=== PATIENT | female | born 1975 | race Caucasian/White ===

== ENCOUNTER 2023-02-10 14:05 | Observation (INO) | payer OTHER, SELFPAY ==
[2023-02-10] VITALS (9 sets, daily range): BP systolic 130–145; BP diastolic 83–89; PULSE 72–111; RESP 16–20; TEMP 36.7–36.8; O2SAT 76–98; BMI 40.9
--- NOTE | 2023-02-10 14:34 | US_ITS ---
The [address] [address] Patient Name: PRADIP MORFIN MRN: [id number] date: 1975 Sex: F Assigned Patient Location: MS Current Patient Location: Accession/Order Number: [id number] Exam Date: 02/10/2023 15:10 Report Date: 02/10/2023 16:22 At the request of: MARIBEL PINEDA Procedure: US right upper quadrant EXAM: US right upper quadrant; [id number] HISTORY: Abd Pain =- Liver, gallbladder, pancreas TECHNIQUE: Real-time sonography of the right upper quadrant was performed. Color and spectral Doppler were used to assess select abdominal vasculature. COMPARISON: Chest CT 01/20/2013. FINDINGS: PANCREAS: The pancreas is obscured by bowel gas. GALLBLADDER: Resected. BILIARY DUCTS: Extrahepatic bile duct at the malik hepatis measures 3 mm. No intrahepatic or extrahepatic ductal dilatation. RIGHT KIDNEY: Kidney measures 11.2 x 4.2 x 4.4 cm. The kidney is within normal limits for size and echogenicity. No hydronephrosis, solid lesion, or stones demonstrated. Doppler signal is within normal limits. LIVER: Within normal limits for size and echogenicity. No focal lesion demonstrated. VASCULATURE: -Antegrade flow in the main portal vein. MISCELLANEOUS: Fluid-filled bowel in the midabdomen. US/US right upper quadrant IMPRESSION: 1. The gallbladder has been resected. 2. The liver and right kidney are within normal limits. Electronically authenticated by: MARY MASON Date: 02/10/2023 16:22
--- NOTE | 2023-02-10 14:35 | XR_ITS ---
The [address] [address] Patient Name: PRADIP MORFIN MRN: [id number] date: 1975 Sex: F Assigned Patient Location: Current Patient Location: Accession/Order Number: [id number] Exam Date: 02/10/2023 15:00 Report Date: 02/10/2023 15:37 At the request of: MARIBEL PINEDA Procedure: XR acute abdomen series EXAMINATION: XR acute abdomen series 02/10/2023 12:36 PM PST HISTORY: Abd Pain COMPARISONS: Chest x-ray 09/16/2020 FINDINGS: Chest findings: Lines/tubes/other: None. Heart and mediastinum: Stable. Bones: No acute osseous abnormality. Lungs: The lungs are clear. There is no evidence of pneumonia or pulmonary edema. Pleura: There is no significant pleural effusion or pneumothorax. Other: None. Abdominal findings: Nonobstructive bowel gas pattern. No pneumoperitoneum, pneumatosis, or portal venous gas. Scattered surgical clips are present. Anastomotic staple line is present in the left upper quadrant. Stool burden is average. XR/XR acute abdomen series IMPRESSION: No acute abnormality demonstrated in the chest or abdomen. Electronically authenticated by: MARY MASON Date: 02/10/2023 15:37
[2023-02-10 15:04] LABS: Basophils Percent Auto 0.5 % (0.2-2.0); Eosinophils Absolute Auto 0.1 10^3/uL (0.0-0.7); Eosinophils Percent Auto 1.6 % (0.9-7.0); Hematocrit 44.4 % (36.0-48.0); Hemoglobin 13.8 g/dL (12.0-16.0); Immature Granulocytes Abs Auto 0.05 10^3/uL (0.00-0.03); Immature Granulocytes Pct Auto 0.8 % (0.0-0.5); Lymphocytes Absolute Auto 1.6 10^3/uL (1.2-3.8); Mean Corpuscular HGB Conc 31.1 g/dL (29.9-35.2); Mean Corpuscular Hemoglobin 28.1 pg (26.7-34.0); Mean Corpuscular Volume 90.4 fL (81.0-99.0); Mean Platelet Volume 9.7 fL (9.5-13.5); Monocytes Absolute Auto 0.6 10^3/uL (0.3-0.8); Monocytes Percent Auto 8.5 % (1.7-12.0); Neutrophils Absolute Auto 4.1 10^3/uL (1.4-6.5); Neutrophils Percent Auto 63.6 % (43.0-75.0); Platelet Count 245 10^3/uL (150-450); Red Blood Count 4.91 10^6/uL (4.20-5.40); Red Cell Distribution Width 14.6 % (11.0-15.0); White Blood Count 6.4 10^3/uL (4.0-11.0)
[2023-02-10 15:09] LABS: Bilirubin Urine NEGATIVE (NEGATIVE); Blood Urine TRACE-I (NEGATIVE); Color Urine YELLOW (YELLOW); Glucose Urine UA NEGATIVE (NEGATIVE); Ketones Urine NEGATIVE (NEGATIVE); Leukocyte Esterase Urine TRACE (NEGATIVE); Nitrite Urine NEGATIVE (NEGATIVE); Protein Urine TRACE mg/dL (NEG/TRACE); pH Urine 6.5 (5.0-9.0)
[2023-02-10 15:12] LABS: Ammonia 22 umol/L (11-32)
[2023-02-10 15:13] LABS: Clarity Urine SLIGHTLY CLOUDY (CLEAR)
[2023-02-10 15:17] LABS: Alanine Aminotransferase 39 U/L (14-59); Albumin Level 3.8 g/dL (3.4-5.0); Alkaline Phosphatase 139 U/L (46-116); Amylase 40 U/L (25-115); Anion Gap 13.9; Aspartate Amino Transferase 29 U/L (15-37); BUN Creatinine Ratio 8.8; Bilirubin Total 0.9 mg/dL (0.2-1.0); Calcium 9.4 mg/dL (8.5-10.1); Carbon Dioxide 25.8 mmol/L (21.0-32.0); Chloride 100 mmol/L (98-107); Estimated GFR (African America 55 (>=60); Estimated GFR (Non-African Ame 46 (>=60); Globulin 3.9 g/dL; Glucose 110 mg/dL (74-106); Potassium 3.7 mmol/L (3.5-5.1); Sodium 136 mmol/L (136-145); Total Protein 7.7 g/dL (6.4-8.2)
[2023-02-10 15:18] LABS: Bacteria Urine LARGE #/HPF (NONE SEEN); Mucus Urine NONE SEEN (NONE SEEN); Squamous Epithelial Cell Urine MANY #/LPF (NONE/RARE)
[2023-02-10 15:19] LABS: Lactate/Lactic Acid 0.9 mmol/L (0.4-2.0)
[2023-02-10 15:59] LABS: Magnesium 1.9 mg/dL (1.8-2.4)
[2023-02-10] MEDS: THIAMINE MONONITRATE (VIT B1) 100 MG TABLET PO (16:19)
[2023-02-10] MEDS: MULTIVITAMIN TABLET 1 TAB PO (16:19)
[2023-02-10] MEDS: PANTOPRAZOLE SODIUM 40 MG VIAL IV (16:19)
[2023-02-10] MEDS: ARIPIPRAZOLE 5 MG TABLET PO (16:20)
[2023-02-10] MEDS: CLORDIAZEPOXIDE HCl 25 MG CAPSULE PO ×3 (16:20→23:18)
[2023-02-10] MEDS: ESCITALOPRAM 10 MG TABLET 20 MG PO (16:21)
[2023-02-10] MEDS: 0.9 % SODIUM CHLORIDE 1,000 ML 1000 ML IV ×2 (16:31→17:30)
[2023-02-10] MEDS: HALOPERIDOL LACTATE 5 MG/ML VIAL 2 MG IV (17:33)
[2023-02-10] MEDS: LACTATED RINGER'S SOLUTION 1,000 ML 100 ML IV (18:34)
[2023-02-10] MEDS: ROPINIROLE HCL 1 MG TABLET PO (19:54)
[2023-02-10] MEDS: CLONIDINE HCL 0.1 MG TABLET PO (21:36)
[2023-02-10] MEDS: PHENobarbitaL 32.4 MG TABLET PO (21:37)
[2023-02-10] MEDS: TRAZODONE HCL 50 MG TABLET 100 MG PO (21:37)
[2023-02-10] MEDS: CEFTRIAXONE 1,000 MG in 0.9 % SODIUM CHLORIDE 50 ML 100 MG IV (23:18)
[2023-02-11] VITALS (15 sets, daily range): BP systolic 104–117; BP diastolic 68–77; PULSE 65–100; RESP 18–20; TEMP 36.4–36.8; O2SAT 92–98; BMI 40.8
[2023-02-11] MEDS: CLORDIAZEPOXIDE HCl 25 MG CAPSULE PO ×2 (02:50→06:27)
[2023-02-11] MEDS: LACTATED RINGER'S SOLUTION 1,000 ML 100 ML IV ×2 (02:50→13:56)
[2023-02-11 05:59] LABS: Basophils Absolute Auto 0.1 10^3/uL (0.0-0.1); Basophils Percent Auto 0.7 % (0.2-2.0); Eosinophils Absolute Auto 0.1 10^3/uL (0.0-0.7); Eosinophils Percent Auto 1.9 % (0.9-7.0); Hematocrit 38.3 % (36.0-48.0); Immature Granulocytes Abs Auto 0.05 10^3/uL (0.00-0.03); Immature Granulocytes Pct Auto 0.7 % (0.0-0.5); Lymphocytes Absolute Auto 2.9 10^3/uL (1.2-3.8); Lymphocytes Percent Auto 41.1 % (20.5-60.0); Mean Corpuscular HGB Conc 31.3 g/dL (29.9-35.2); Mean Corpuscular Hemoglobin 28.6 pg (26.7-34.0); Mean Corpuscular Volume 91.4 fL (81.0-99.0); Mean Platelet Volume 9.9 fL (9.5-13.5); Monocytes Absolute Auto 0.5 10^3/uL (0.3-0.8); Monocytes Percent Auto 7.3 % (1.7-12.0); Neutrophils Absolute Auto 3.4 10^3/uL (1.4-6.5); Neutrophils Percent Auto 48.3 % (43.0-75.0); Platelet Count 215 10^3/uL (150-450); Red Blood Count 4.19 10^6/uL (4.20-5.40); Red Cell Distribution Width 14.6 % (11.0-15.0); White Blood Count 6.9 10^3/uL (4.0-11.0)
[2023-02-11 06:22] LABS: Alanine Aminotransferase 31 U/L (14-59); Albumin Globulin Ratio 0.9; Alkaline Phosphatase 108 U/L (46-116); Anion Gap 10.1; Aspartate Amino Transferase 19 U/L (15-37); BUN Creatinine Ratio 10.1; Bilirubin Total 0.5 mg/dL (0.2-1.0); Calcium 8.6 mg/dL (8.5-10.1); Carbon Dioxide 26.8 mmol/L (21.0-32.0); Chloride 107 mmol/L (98-107); Estimated GFR (African America 58 (>=60); Estimated GFR (Non-African Ame 48 (>=60); Globulin 3.2 g/dL; Glucose 121 mg/dL (74-106); Potassium 3.9 mmol/L (3.5-5.1); Sodium 140 mmol/L (136-145); Total Protein 6.2 g/dL (6.4-8.2)
[2023-02-11] MEDS: PHENobarbitaL 32.4 MG TABLET PO ×3 (06:27→21:44)
[2023-02-11] MEDS: ACETAMINOPHEN 500 MG TABLET 1000 MG PO (07:23)
--- NOTE | 2023-02-11 07:51 | P.PN_ITS ---
Progress Note: Subjective Subjective Interval history: Abdominal pain and nausea vomiting somewhat better. No further emesis but still has significant nausea. Admitted from the office for workup and treatment of gastroenteritis versus alcohol withdrawal syndrome. Only had 1 panic attack with the Haldol to help to resolve overall appears much better today. Not with great urine output yet. Exam Constitutional Vital Signs, click to edit/add: Last Vital Signs Temp 97.6 F 02/11/23 06:00 Pulse 67 02/11/23 06:00 Resp 20 02/11/23 06:00 BP 117/77 02/11/23 06:00 Pulse Ox 93 L 02/11/23 06:00 O2 Del Method Room Air 02/11/23 06:00 Documenting provider has reviewed patient's vital signs: yes Common normals: no apparent distress and oriented x3 Chest Common normals: inspection of chest normal Respiratory Common normals: normal respiratory effort and no retractions Cardio Common normals: regular rate and regular rhythm Common normals: external appearance normal and appearance of the vagina normal Neuro Common normals: oriented x3, CN's II-XII intact bilaterally and moves all extremities Psych Common normals: mental status grossly normal (still with sig anxiety at time) Progress Note: Objective Labs Labs: Short CBC 02/10/23 02/11/23 Range/Units 14:53 05:20 WBC 6.4 6.9 (4.0-11.0) 10^3/uL Hgb 13.8 12.0 (12.0-16.0) g/dL Hct 44.4 38.3 (36.0-48.0) % Plt Count 245 215 (150-450) 10^3/uL BMP 02/10/23 02/11/23 14:53 05:20 Sodium 136 140 Potassium 3.7 3.9 Chloride 100 107 Carbon Dioxide 25.8 26.8 BUN 11.0 12.0 Creatinine 1.25 H 1.19 H Glucose 110 H 121 H Calcium 9.4 8.6 Liver Function 02/10/23 02/11/23 Range/Units 14:53 05:20 Total Bilirubin 0.9 0.5 (0.2-1.0) mg/dL AST 29 19 (15-37) U/L ALT 39 31 (14-59) U/L Alkaline Phosphatase 139 H 108 (46-116) U/L Albumin 3.8 3.0 L (3.4-5.0) g/dL Urine 02/10/23 Range/Units 14:40 Urine Color Yellow (YELLOW) Urine Clarity Slightly cloudy A (CLEAR) Urine pH 6.5 (5.0-9.0) Ur Specific [place] 1.020 (1.005-1.025) Urine Protein Trace (NEG/TRACE) mg/dL Urine Glucose (UA) Negative (NEGATIVE) mg/dL Progress Note: A&P Assessment and Plan (1) Dehydration: Plan Sinus tachycardia, borderline hypertension, acute kidney injury with creatinine 1.5 times normal secondary to hyperemesis secondary to gastroenteritis versus alcohol withdrawal syndrome-continue with CIWA scale, change Librium to as needed, keep with Haldol as needed IV. Male she is Haldol for better sleep. No trazodone available. No Phenergan available for nausea vomiting, will go with Zofran Acute kidney injury secondary to above with creatinine 1.5 times normal-keep with IV fluids today. Does have better urine output but still fairly dark. Anxiety disorder with panic attack-so far improved with increased dose of the Abilify. Haldol helping should be good sign Abilify may be a good long-term answer. Persistent diarrhea-awaiting stool testing UA positive with blood cell count-added IV antibiotics last night. Needs 1 more hospital stay. Will maintain as observation currently.
[2023-02-11] MEDS: 0.9 % SODIUM CHLORIDE 500 ML 1000 ML IV (08:51)
[2023-02-11] MEDS: THIAMINE MONONITRATE (VIT B1) 100 MG TABLET PO (08:52)
[2023-02-11] MEDS: ARIPIPRAZOLE 5 MG TABLET PO (08:52)
[2023-02-11] MEDS: ESCITALOPRAM 10 MG TABLET 20 MG PO (08:52)
[2023-02-11] MEDS: MULTIVITAMIN TABLET 1 TAB PO (08:52)
[2023-02-11] MEDS: CLONIDINE HCL 0.1 MG TABLET PO ×2 (08:52→21:51)
[2023-02-11] MEDS: HALOPERIDOL LACTATE 5 MG/ML VIAL 2 MG IV ×2 (09:27→18:49)
[2023-02-11 12:11] LABS: Adenovirus F 40/41 NOT DETECTED (NOT DETECTE); Astrovirus NOT DETECTED (NOT DETECTE); Campylobacter NOT DETECTED (NOT DETECTE); Cryptosporidium NOT DETECTED (NOT DETECTE); Cyclospora cayetanensis NOT DETECTED (NOT DETECTE); Entamoeba histolytica NOT DETECTED (NOT DETECTE); Enteroaggregative E.coli NOT DETECTED (NOT DETECTE); Enteropathogenic E.coli NOT DETECTED (NOT DETECTE); Enterotoxigenic E. coli NOT DETECTED (NOT DETECTE); Giardia lamblia NOT DETECTED (NOT DETECTE); Norovirus GI/GII NOT DETECTED (NOT DETECTE); Plesiomonas shigelloides NOT DETECTED (NOT DETECTE); Rotavirus A NOT DETECTED (NOT DETECTE); Salmonella NOT DETECTED (NOT DETECTE); Sapovirus NOT DETECTED (NOT DETECTE); Shiga-like toxin-producing E.C NOT DETECTED (NOT DETECTE); Shigella/Enteroinvasive E.coli NOT DETECTED (NOT DETECTE); Vibrio NOT DETECTED (NOT DETECTE); Vibrio cholerae NOT DETECTED (NOT DETECTE); Yersinia enterocolitica NOT DETECTED (NOT DETECTE)
--- NOTE | 2023-02-11 13:17 | DIETREC ---
Recommend prostat @30 ml po daily R/T low serum albumin @ 3.0
[2023-02-11] MEDS: PANTOPRAZOLE SODIUM 40 MG VIAL IV (14:47)
--- NOTE | 2023-02-11 16:05 | CM.NOTE ---
Discussed with pt about alcohol rehab or outpatient counseling services. Pt denies need for inpatient treatment. Pt is current with Darek for counseling through [facility] and also is seeing a counselor from [facility] in [place] (Shania). Pt has appointment scheduled for Wednesday in [place] for counseling. Pt also seeing a doctor at [facility] r/t insomnia. Pt denies any need for referrals at this time.
[2023-02-11] MEDS: ROPINIROLE HCL 1 MG TABLET PO (21:44)
[2023-02-11] MEDS: TRAZODONE HCL 50 MG TABLET 100 MG PO (21:44)
[2023-02-11] MEDS: CEFTRIAXONE 1,000 MG in 0.9 % SODIUM CHLORIDE 50 ML 100 MG IV (21:44)
[2023-02-12] VITALS (10 sets, daily range): BP systolic 110; BP diastolic 77; PULSE 65–83; RESP 18; TEMP 36.4; O2SAT 93–96
[2023-02-12] MEDS: LACTATED RINGER'S SOLUTION 1,000 ML 100 ML IV (00:17)
[2023-02-12 05:06] LABS: Basophils Absolute Auto 0.1 10^3/uL (0.0-0.1); Basophils Percent Auto 0.8 % (0.2-2.0); Eosinophils Absolute Auto 0.2 10^3/uL (0.0-0.7); Eosinophils Percent Auto 2.7 % (0.9-7.0); Hematocrit 38.6 % (36.0-48.0); Hemoglobin 12.1 g/dL (12.0-16.0); Immature Granulocytes Abs Auto 0.07 10^3/uL (0.00-0.03); Immature Granulocytes Pct Auto 0.9 % (0.0-0.5); Lymphocytes Absolute Auto 2.9 10^3/uL (1.2-3.8); Lymphocytes Percent Auto 37.1 % (20.5-60.0); Mean Corpuscular HGB Conc 31.3 g/dL (29.9-35.2); Mean Corpuscular Hemoglobin 28.5 pg (26.7-34.0); Monocytes Absolute Auto 0.6 10^3/uL (0.3-0.8); Monocytes Percent Auto 7.6 % (1.7-12.0); Neutrophils Percent Auto 50.9 % (43.0-75.0); Platelet Count 217 10^3/uL (150-450); Red Blood Count 4.24 10^6/uL (4.20-5.40); Red Cell Distribution Width 14.6 % (11.0-15.0); White Blood Count 7.8 10^3/uL (4.0-11.0)
[2023-02-12] MEDS: PHENobarbitaL 32.4 MG TABLET PO (05:14)
[2023-02-12 05:31] LABS: Alanine Aminotransferase 27 U/L (14-59); Albumin Globulin Ratio 0.9; Albumin Level 2.9 g/dL (3.4-5.0); Alkaline Phosphatase 105 U/L (46-116); Anion Gap 7.2; Aspartate Amino Transferase 15 U/L (15-37); Bilirubin Total 0.4 mg/dL (0.2-1.0); Calcium 8.4 mg/dL (8.5-10.1); Carbon Dioxide 26.4 mmol/L (21.0-32.0); Chloride 106 mmol/L (98-107); Estimated GFR (African America >60 (>=60); Estimated GFR (Non-African Ame 59 (>=60); Globulin 3.1 g/dL; Glucose 99 mg/dL (74-106); Potassium 3.6 mmol/L (3.5-5.1); Sodium 136 mmol/L (136-145)
--- NOTE | 2023-02-12 08:22 | P.DS_ITS ---
DS: Providers Provider Date of admission: 02/10/23 14:05 Primary care physician: Farhat Cabezas MD DS: Diagnosis Discharge Diagnosis (1) Dehydration: DS: Summary Hospital Course Hospital Course: patient admitted with dehydration secondary to possible gastroenteritis with diarrhea but also possible alcohol withdrawal syndrome. Patient with IV fluids, CIWA scale was followed, medications were given as needed as well as [id number] initially. There adjust as needed yesterday which did not need. This point she does feel improved. No further nausea vomiting. Diarrhea is back to her baseline. At this point she tolerates breakfast and lunch with no further withdrawal symptoms and no further gastroenteritis symptoms she will be discharged home in improving condition. Medications see list. Follow-up with me in the office as needed. Time Spent with Patient Time attestation: Total time spent providing and/or coordinating discharge services: Exam Constitutional Vital Signs, click to edit/add: Last Vital Signs Temp 97.5 F L 02/12/23 05:31 Pulse 66 02/12/23 07:57 Resp 18 02/12/23 05:31 BP 110/77 02/12/23 05:31 Pulse Ox 96 02/12/23 05:31 O2 Del Method Room Air 02/12/23 05:31 Documenting provider has reviewed patient's vital signs: yes Common normals: no apparent distress and oriented x3 Chest Common normals: inspection of chest normal Respiratory Common normals: normal respiratory effort and no retractions Cardio Common normals: regular rate and regular rhythm Common normals: external appearance normal and appearance of the vagina normal Neuro Common normals: oriented x3, CN's II-XII intact bilaterally and moves all extremities Psych Common normals: mental status grossly normal (still with sig anxiety at time) DS: Data Data Completed and Pending Labs on day of discharge: Labs from last 24 hours 02/12/23 02/11/23 04:34 12:00 WBC 7.8 RBC 4.24 Hgb 12.1 Hct 38.6 MCV 91.0 MCH 28.5 MCHC 31.3 RDW 14.6 Plt Count 217 MPV 10.0 Neut % (Auto) 50.9 Lymph % (Auto) 37.1 [place] % (Auto) 7.6 Eos % (Auto) 2.7 Baso % (Auto) 0.8 Neut # (Auto) 4.0 Lymph # (Auto) 2.9 [place] # (Auto) 0.6 Eos # (Auto) 0.2 Baso # (Auto) 0.1 Abs Immat Gran (auto) 0.07 H Imm/Tot Granulo (auto) 0.9 H Sodium 136 Potassium 3.6 Chloride 106 Carbon Dioxide 26.4 Anion Gap 7.2 BUN 11.0 Creatinine 1.00 Est GFR ( Amer) >60 Est GFR (Non-Af Amer) 59 L BUN/Creatinine Ratio 11.0 Glucose 99 Calcium 8.4 L Total Bilirubin 0.4 AST 15 ALT 27 Alkaline Phosphatase 105 Total Protein 6.0 L Albumin 2.9 L Globulin 3.1 Albumin/Globulin Ratio 0.9 Stl C. cayetanensis PCR Not detected Stool Rotavirus (PCR) Not detected Stool Adenovirus (PCR) Not detected Stool Astrovirus (PCR) Not detected Stool Campylobacter PCR Not detected Stool Cryptosporidium PCR Not detected St Sh/Enteroin Ecoli PCR Not detected Stl Enterotoxigenic E PCR Not detected Stool EPEC (PCR) Not detected Stl E. histolytica PCR Not detected Stool Giardia Lamblia PCR Not detected Stl P. shigelloides PCR Not detected Stool Salmonella PCR Not detected Stool Sapovirus (PCR) Not detected Stl Shiga-like Tx [address] Y.enterocolitica PCR Not detected Stl Vibrio cholerae PCR Not detected Stl Enteroaggr Ecoli PCR Not detected Stl Norovirus GI/GII PCR Not detected C. difficile Toxin A&B Not detected Vibrio Culture Not detected Discharge Plan Discharge Disposition: Home, Self-Care Discharge Medications: New aripiprazole [Abilify] 5 mg tablet 5 mg PO DAILY Qty: 30 11RF trazodone 150 mg tablet 150 mg PO .qhs Qty: 30 11RF clonidine HCl 0.1 mg tablet 0.1 mg PO BID Qty: 30 11RF promethazine 25 mg tablet 25 mg PO Q6H PRN (Reason: nausea and vomiting) Qty: 30 11RF Continued Trulicity 1.5 mg/0.5 mL pen injector 1.5 mg SUBCUT QWEEK Rx Instructions: verify which day of the week patient uses (DME) FreeStyle Lite Strips Strip MISCELLANEOUS (DME) blood-glucose meter [FreeStyle [place] Lite] Kit MISCELLANEOUS zaleplon 5 mg capsule 5 mg PO .qhs Rx Instructions: filled for #7 for 7 days on 02/05/23 hydroxyzine pamoate 100 mg capsule 100 mg PO BID PRN (Reason: anxiety ) ropinirole 1 mg tablet 1 mg PO .qhs Rx Instructions: 1 to 3 hours before bedtime pantoprazole 40 mg tablet,delayed release (DR/EC) 40 mg PO Q24H escitalopram oxalate 20 mg tablet 20 mg PO QAM levothyroxine 75 mcg tablet 75 mcg PO QAM ergocalciferol (vitamin D2) 1,250 mcg (50,000 unit) capsule 1,250 mcg PO .COMPLEX Rx Instructions: 1,250 mcg orally THREE TIMES PER WEEK; Discontinued buspirone 15 mg tablet 15 mg PO BID Rx Instructions: upon awakening and at 5-6 pm trazodone 100 mg tablet 100 mg PO .QHS PRN (Reason: sleep) Rx Instructions: ONE-HALF TO ONE TABLET BY MOUT ONE HOUR PRIOR TO BEDTIME NEEDED aripiprazole 2 mg tablet 2 mg PO .qhs Forms: Portal Instructions
[2023-02-12] MEDS: CLONIDINE HCL 0.1 MG TABLET PO (09:22)
[2023-02-12] MEDS: MULTIVITAMIN TABLET 1 TAB PO (09:22)
[2023-02-12] MEDS: ARIPIPRAZOLE 5 MG TABLET PO (09:22)
[2023-02-12] MEDS: ESCITALOPRAM 10 MG TABLET 20 MG PO (09:22)
[2023-02-12] MEDS: THIAMINE MONONITRATE (VIT B1) 100 MG TABLET PO (09:22)
--- NOTE | 2023-02-15 16:18 | CM.DCFOLLOWU ---
Person spoke with: patient How are you feeling? well How is your pain? no pain Did you understand your discharge instructions? yes Do you have any questions about your discharge instructions? no Were you given any prescriptions at discharge? yes Were you able to get your prescriptions filled? yes Do you understand how to take your medications as ordered? yes Do you have any questions about your follow up appointment and do you plan to keep your follow up appointment? no questions, keeping follow up Is there anything else that you would like to discuss? wanted to recognize nursing staff for being so great! Also to recognize Shantal case management for being helpful and great as well. Questions/Comments/Concerns/Other:
== END 2023-02-12 13:20 | disposition home or self-care (01) ==
PROVIDERS: Admitting Provider Family Medicine; PCP Family Medicine; Visit Provider Family Medicine
DX: E86.0 Dehydration (principal); N17.9 Acute kidney failure, unspecified; R00.0 Tachycardia, unspecified; R03.0 Elevated blood-pressure reading, without diagnosis of hypertension; R11.2 Nausea with vomiting, unspecified; R19.7 Diarrhea, unspecified; F41.0 Panic disorder [episodic paroxysmal anxiety]; F41.9 Anxiety disorder, unspecified; R82.90 Unspecified abnormal findings in urine; E11.9 Type 2 diabetes mellitus without complications; K21.9 Gastro-esophageal reflux disease without esophagitis; E05.00 Thyrotoxicosis with diffuse goiter without thyrotoxic crisis or storm; E06.3 Autoimmune thyroiditis; E66.9 Obesity, unspecified; Z68.41 Body mass index [BMI] 40.0-44.9, adult; Z98.84 Bariatric surgery status; Z79.899 Other long term (current) drug therapy; Z79.85 Long-term (current) use of injectable non-insulin antidiabetic drugs; Z79.890 Hormone replacement therapy
CPT/HCPCS: 36415; 74022; 76705; 80053; 81001; 82140; 82150; 83605; 83690; 83735; 85025; 87086; 87507; 94761; 96361; 96365; 96375; 96376; G0378; G0379; J0696; J1630

== ENCOUNTER 2023-03-31 15:14 | Outpatient (OUT) | payer OTHER, SELFPAY ==
[2023-03-31 15:52] LABS: Basophils Absolute Auto 0.1 10^3/uL (0.0-0.1); Basophils Percent Auto 0.8 % (0.2-2.0); Eosinophils Absolute Auto 0.3 10^3/uL (0.0-0.7); Eosinophils Percent Auto 3.3 % (0.9-7.0); Hematocrit 43.6 % (36.0-48.0); Hemoglobin 13.6 g/dL (12.0-16.0); Immature Granulocytes Abs Auto 0.09 10^3/uL (0.00-0.03); Immature Granulocytes Pct Auto 0.9 % (0.0-0.5); Lymphocytes Absolute Auto 3.4 10^3/uL (1.2-3.8); Lymphocytes Percent Auto 33.1 % (20.5-60.0); Mean Corpuscular HGB Conc 31.2 g/dL (29.9-35.2); Mean Corpuscular Hemoglobin 28.2 pg (26.7-34.0); Mean Corpuscular Volume 90.5 fL (81.0-99.0); Mean Platelet Volume 10.8 fL (9.5-13.5); Monocytes Absolute Auto 0.7 10^3/uL (0.3-0.8); Monocytes Percent Auto 6.9 % (1.7-12.0); Neutrophils Absolute Auto 5.7 10^3/uL (1.4-6.5); Platelet Count 277 10^3/uL (150-450); Red Blood Count 4.82 10^6/uL (4.20-5.40); Red Cell Distribution Width 14.1 % (11.0-15.0); White Blood Count 10.4 10^3/uL (4.0-11.0)
[2023-03-31 16:46] LABS: Partial Thromboplastin Time 27.2 sec (22.3-36.2); Prothrombin Time 9.8 sec (9.0-11.6)
[2023-03-31 16:58] LABS: INR <0.93
== END 2023-03-31 15:15 | disposition home or self-care (01) ==
LOC: LAB 15:16
PROVIDERS: PCP Family Medicine; Visit Provider Family Medicine
DX: K92.1 Melena (principal)
CPT/HCPCS: 36415; 85025; 85610; 85730; G0328

== ENCOUNTER 2023-05-19 12:36 | Outpatient (OUT) | payer OTHER, SELFPAY ==
[2023-05-19 14:22] LABS: Basophils Absolute Auto 0.1 10^3/uL (0.0-0.1); Basophils Percent Auto 0.7 % (0.2-2.0); Eosinophils Absolute Auto 0.2 10^3/uL (0.0-0.7); Eosinophils Percent Auto 2.7 % (0.9-7.0); Hematocrit 39.8 % (36.0-48.0); Hemoglobin 12.5 g/dL (12.0-16.0); Immature Granulocytes Abs Auto 0.05 10^3/uL (0.00-0.03); Immature Granulocytes Pct Auto 0.7 % (0.0-0.5); Lymphocytes Absolute Auto 2.3 10^3/uL (1.2-3.8); Lymphocytes Percent Auto 30.1 % (20.5-60.0); Mean Corpuscular HGB Conc 31.4 g/dL (29.9-35.2); Mean Corpuscular Volume 89.2 fL (81.0-99.0); Mean Platelet Volume 11.4 fL (9.5-13.5); Monocytes Absolute Auto 0.6 10^3/uL (0.3-0.8); Monocytes Percent Auto 7.6 % (1.7-12.0); Neutrophils Absolute Auto 4.4 10^3/uL (1.4-6.5); Neutrophils Percent Auto 58.2 % (43.0-75.0); Platelet Count 243 10^3/uL (150-450); Red Blood Count 4.46 10^6/uL (4.20-5.40); Red Cell Distribution Width 14.4 % (11.0-15.0); White Blood Count 7.5 10^3/uL (4.0-11.0)
[2023-05-19 14:23] LABS: Estimated Average Glucose 131 mg/dL; Glycohemoglobin A1C 6.2 % (4.5-6.2)
[2023-05-19 14:32] LABS: Alanine Aminotransferase 57 U/L (14-59); Albumin Globulin Ratio 0.9; Albumin Level 3.4 g/dL (3.4-5.0); Alkaline Phosphatase 190 U/L (46-116); Anion Gap 15.7; Aspartate Amino Transferase 53 U/L (15-37); BUN Creatinine Ratio 14.4; Bilirubin Total 0.4 mg/dL (0.2-1.0); Calcium 8.7 mg/dL (8.5-10.1); Carbon Dioxide 24.3 mmol/L (21.0-32.0); Chloride 106 mmol/L (98-107); Estimated GFR (African America 55 (>=60); Estimated GFR (Non-African Ame 46 (>=60); Globulin 3.8 g/dL; Glucose 127 mg/dL (74-106); Sodium 142 mmol/L (136-145); Thyroid Stimulating Hormone 5.903 uIU/mL (0.358-3.740); Total Protein 7.2 g/dL (6.4-8.2)
[2023-05-19 14:37] LABS: INR 0.94; Partial Thromboplastin Time 26.5 sec (22.3-36.2)
[2023-05-19 14:42] LABS: Bilirubin Urine NEGATIVE (NEGATIVE); Blood Urine TRACE-I (NEGATIVE); Clarity Urine CLEAR (CLEAR); Color Urine YELLOW (YELLOW); Glucose Urine UA NEGATIVE (NEGATIVE); Ketones Urine NEGATIVE (NEGATIVE); Leukocyte Esterase Urine NEGATIVE (NEGATIVE); Nitrite Urine NEGATIVE (NEGATIVE); Protein Urine NEGATIVE (NEG/TRACE); Specific Gravity Urine 1.025 (1.005-1.025); Urobilinogen Urine 0.2 EU/dL (0.2-1.0)
[2023-05-19 15:02] LABS: Bacteria Urine TRACE #/HPF (NONE SEEN); Cast Seen? NONE SEEN #/LPF (NONE SEEN); Crystals Seen? None Seen #/HPF (None Seen); Mucus Urine NONE SEEN (NONE SEEN); RBC Urine 0-2 #/HPF (0-2); Squamous Epithelial Cell Urine RARE #/LPF (NONE/RARE); WBC Urine NONE SEEN #/HPF (NONE SEEN)
== END 2023-05-19 12:37 | disposition home or self-care (01) ==
LOC: LAB 12:41
PROVIDERS: PCP Family Medicine; Visit Provider Family Medicine
DX: E53.8 Deficiency of other specified B group vitamins (principal); D64.9 Anemia, unspecified; E06.3 Autoimmune thyroiditis; E11.9 Type 2 diabetes mellitus without complications; T14.8XXA Other injury of unspecified body region, initial encounter; R35.0 Frequency of micturition; R60.0 Localized edema
CPT/HCPCS: 36415; 80053; 81001; 82607; 82728; 82746; 83036; 83540; 84436; 84443; 84481; 85025; 85610; 85730; 87086

== ENCOUNTER 2023-05-19 14:09 | Inpatient (IN) | payer OTHER, SELFPAY ==
[2023-05-19 14:39] VITALS: BP 152/90; PULSE 83; TEMP 36.7; O2SAT 96; BMI 44.6
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
--- NOTE | 2023-05-19 15:56 | PC.NURSE ---
.Pt voiced she has been drinking 1/5th of vodka a day. Pt voiced she feels alone and has no one to be her support system. She did say I feel like i could hurt somebody . Pt also voiced she wants her ativan and other meds now before a panic attack happens. She is very anxious and tearful with nurse while doing admission assessment. Updating MD about Psych concerns.
[2023-05-19 16:40] LABS: Ammonia 23 umol/L (11-32); Amylase 44 U/L (25-115)
[2023-05-19 16:42] LABS: Amphetamine Screen Urine NEGATIVE (NEGATIVE); Barbiturates Screen Urine NEGATIVE (NEGATIVE); Benzodiazepines Screen Urine POSITIVE (NEGATIVE); Buprenorphine Screen Urine NEGATIVE (NEGATIVE); Cannabinoid Screen Urine NEGATIVE (NEGATIVE); Cocaine Screen Urine NEGATIVE (NEGATIVE); Methadone Screen Urine NEGATIVE (NEGATIVE); Methamphetamines Screen Urine NEGATIVE (NEGATIVE); Opiate Screen Urine NEGATIVE (NEGATIVE); Oxycodone Screen Urine NEGATIVE (NEGATIVE); Phencyclidine Screen Urine NEGATIVE (NEGATIVE); Tricyclic Antidepressant Urine NEGATIVE (NEGATIVE)
--- NOTE | 2023-05-19 17:19 | P.HP_ITS ---
HPI H&P: HPI History of Present Illness Chief complaint: OBSERVATION DEHYDRATION Narrative: Patient scented to the office with increasing nausea vomiting. Unable to control symptoms at home with Phenergan. Has been going on for couple days. Occasionally lightheaded upon standing but not as severe as it has been in the past. A lot of anxiety going on as well. She sees her psychiatrist weekly has been doing some close monitoring and adjusting her medication Opioid HPI Opioid Management Most Recent Opioid Data: Last Pain Scale 6 02/11/23 08:48 Last Pain Assessment 05/19/23 17:00 Last ORT Total Score 10 05/19/23 14:49 Last ORT Risk Category High Risk 05/19/23 14:49 Ur Phencyclidine Scrn Negative (NEGATIVE) 05/19/23 12:44 Review of Systems ROS Status of ROS 10 or more systems reviewed and unremark able except as noted in history and below [facility] Medical History (Updated 05/19/23 @ 15:06 by Annemarie Anderson) TALIA (obstructive sleep apnea) ?G47.33 - Obstructive sleep apnea (adult) (pediatric) (ICD-10) GI bleed ?K92.2 - Gastrointestinal hemorrhage, unspecified (ICD-10) Incarcerated paraesophageal hernia ?K44.0 - Diaphragmatic hernia with obstruction, without gangrene (ICD-10) Fibromyalgia ?M79.7 - Fibromyalgia (ICD-10) Thyroid cancer ?C73 - Malignant neoplasm of thyroid gland (ICD-10) Dehydration ?E86.0 - Dehydration (ICD-10) Anxiety ?F41.9 - Anxiety disorder, unspecified (ICD-10) Depression ?F32.A - Depression, unspecified (ICD-10) Surgical History (Updated 05/19/23 @ 15:06 by Annemarie Anderson) H/O bariatric surgery ?Z98.84 - Bariatric surgery status (ICD-10) History of cholecystectomy ?Z90.49 - Acquired absence of other specified parts of digestive tract (ICD- 10) Family History (Updated 05/19/23 @ 15:02 by Annemarie Anderson) Father Family history of CHF (congestive heart failure) Family history of diabetes mellitus Family history of hypertension Family history of myocardial infarction Family history of stroke Mother Family history of COPD (chronic obstructive pulmonary disease) Grandmother Family history of cancer Family history of diabetes mellitus Social History (Updated 02/10/23 @ 14:27 by Annemarie Anderson) Within the past year, how often did you have a drink containing alcohol: 4 or more times a week Within the past year, how many standard drinks containing alcohol did you have on a typical day: 10 or more Within the past year, how often did you have six or more drinks on one occasion: daily or almost daily Total score: 12 Score interpretation: A score of 3 or more indicates drinking is likely to affe ct patient's safety. Non-prescribed substance use: cannabis (any form) Highest level of school completed/degree received: high school graduate Little interest or pleasure in doing things: nearly every day Feeling down, depressed, or hopeless: nearly every day Feel stressed/tense/nervous/anxious/difficulty sleeping: very much Life stressors: recent of family or friend Life stressor details: Dad , lost job, son got other son left alone with 3 kids Meds Home Medications and Allergies Home Medications ?Medication ?Instructions ?Recorded ?Confirmed ?Type blood sugar diagnostic (FreeStyle 02/10/23 05/19/23 History Lite Strips) blood-glucose meter (FreeStyle 02/10/23 05/19/23 History [place] Lite kit) levothyroxine 75 mcg tablet 75 mcg PO QAM 02/10/23 05/19/23 History pantoprazole 40 mg tablet,delayed 40 mg PO Q24H PRN stomach upset 02/10/23 05/19/23 History release ropinirole 1 mg tablet 1 mg PO .qhs PRN restless leg(s) 02/10/23 05/19/23 History promethazine 25 mg tablet 25 mg PO Q6H PRN nausea and 02/12/23 05/19/23 Rx vomiting #30 tabs albuterol sulfate 90 mcg/actuation 1 puff inhalation Q4H PRN 05/19/23 05/19/23 History aerosol inhaler shortness of breath or wheezing aripiprazole 5 mg tablet (Abilify) 5 mg PO .QHS 05/19/23 05/19/23 History cyanocobalamin (vitamin B-12) 1,000 mcg IM Q30D 05/19/23 05/19/23 History 1,000 mcg/mL injection solution dulaglutide 3 mg/0.5 mL 3 mg subcut QWEEK 05/19/23 05/19/23 History subcutaneous pen injector (Trulicity) ergocalciferol (vitamin D2) 1,250 1,250 mcg PO .3XWEEK 05/19/23 05/19/23 History mcg (50,000 unit) capsule lorazepam 1 mg tablet 1 mg PO TID PRN anxiety 05/19/23 05/19/23 History mirtazapine 7.5 mg tablet 7.5 mg PO .qhs 05/19/23 05/19/23 History propranolol 10 mg tablet 10 mg PO QID 05/19/23 05/19/23 History sumatriptan succinate 100 mg tablet 100 mg PO Q2H PRN migraine headache 05/19/23 05/19/23 History zolpidem 10 mg tablet 10 mg PO .qhs 05/19/23 05/19/23 History Allergies Allergy/AdvReac Type Severity Reaction Status Date / Time ibuprofen [From Motrin] Allergy Unknown GI bleed Verified 02/10/23 14:24 scopolamine AdvReac psychosis Verified 02/10/23 14:24 Exam Constitutional Vital Signs, click to edit/add: Last Vital Signs Temp 98.0 F 05/19/23 14:39 Pulse 83 05/19/23 14:39 Resp 18 05/19/23 14:39 BP 152/90 H 05/19/23 14:39 Pulse Ox 96 05/19/23 14:39 O2 Del Method Room Air 05/19/23 14:51 Documenting provider has reviewed patient's vital signs: yes Common normals: apparent distress (Anxious) [facility] Common normals: oral mucous membranes not moist (Slightly dry mucous membranes) Chest Common normals: inspection of chest normal and palpation of chest normal Respiratory Common normals: normal respiratory effort and no retractions Cardio Common normals: regular rhythm; irregular rate Rate: tachycardic GI Common normals: Normal to inspection, nondistended, normoactive bowel sounds present, soft to palpation, non-tender and no masses Extremity Common normals: normal to inspection, full ROM and no clubbing, cyanosis or edema Assessment and Plan Assessment and Plan (1) Dehydration: (2) Alcohol abuse: Plan Procedures: Stent nausea and vomiting, failed outpatient treatment with Phenergan, tachycardia, acute kidney injury with creatinine 25% above baseline(creatinine today 1.25, creatinine and previous blood work done about a month ago showed a creatinine of 1) resulting in significant dehydration-IV fluids, will give bolus as well. History of alcohol abuse-we will add the banana bag and the fluids as outlined above, CIWA scale, as needed Librium. Patient is having migraine off and on, will have as needed migraine medicine written for Elevated TSH consistent with hypothyroidism-check to see if taking her medica tions lately with this recent illness Anxiety with depression-reviewed medications with her, see list, her psychiatrist continues to adjust her medications. Reviewed [facility] report GERD-continue with home medications Admission status: Likely just dehydration, likely less than 1 midnight stay, place patient observation status.-Not improving significantly in the next 24 hours will change patient to inpatient status as medically necessary treatment will span 2 midnights
[2023-05-19] MEDS: 0.9 % SODIUM CHLORIDE 1,000 ML 1000 ML IV (17:37)
[2023-05-19 17:52] LABS: Ethanol <3 mg/dL
--- NOTE | 2023-05-19 17:55 | XR_ITS ---
The [address] [address] Patient Name: PRADIP MORFIN MRN: [id number] date: 1975 Sex: F Assigned Patient Location: MS Current Patient Location: Accession/Order Number: [id number] Exam Date: 05/19/2023 17:49 Report Date: 05/19/2023 18:22 At the request of: MARIBEL PINEDA Procedure: XR acute abdomen series Exam: Radiographs: XR acute abdomen series Reason for exam: Abd Pain Comparison: Plain films dated 02/10/2023 XR/XR acute abdomen series IMPRESSION: No free intraperitoneal air. No gas-filled dilated loops of small bowel or colon. No gaseous dilation of the stomach. No fecal impaction. Cholecystectomy. Left abdominal surgical clips. Small amount of atelectasis and/or infiltrate in the right lower lung. Pulmonary venous hypertension. Remainder unremarkable. Electronically authenticated by: KATEY BE Date: 05/19/2023 18:22
[2023-05-19] MEDS: PROPRANOLOL HCL 20 MG TABLET 10 MG PO ×2 (19:23→21:30)
[2023-05-19] MEDS: LORAZEPAM 1 MG TABLET PO (19:23)
[2023-05-19 19:40] VITALS: O2SAT 95
[2023-05-19 20:00] VITALS: BP 144/88; PULSE 79; TEMP 36.7; O2SAT 94
[2023-05-19] MEDS: PANTOPRAZOLE SODIUM 40 MG VIAL IV (20:34)
[2023-05-19] MEDS: KETOROLAC TROMETHAMINE 30 MG/ML VIAL 15 MG IVP (20:34)
[2023-05-19 20:37] LABS: Glucometer 133 mg/dL (74-106)
[2023-05-19] MEDS: MULTIVIT INFUSN,ADULT 4,VIT K 10 ML, FOLIC ACID 1 MG, THIAMINE HCL 100 MG in DEXTROSE 5... 250 ML IV (21:27)
[2023-05-19] MEDS: PHENobarbitaL 32.4 MG TABLET 32.3999999999999986 MG PO (21:30)
[2023-05-19] MEDS: ZOLPIDEM TARTRATE 10 MG TABLET PO (21:30)
[2023-05-19] MEDS: MIRTAZAPINE 15 MG TABLET 7.5 MG PO (21:30)
[2023-05-19] MEDS: ARIPIPRAZOLE 5 MG TABLET PO (21:30)
[2023-05-19 22:46] VITALS: O2SAT 94
[2023-05-19 23:41] VITALS: BP 121/80; PULSE 74; TEMP 36.4; O2SAT 97
[2023-05-20] VITALS (11 sets, daily range): BP systolic 115–145; BP diastolic 73–86; PULSE 75–90; TEMP 36.4–36.7; O2SAT 82–97; BMI 44.6
[2023-05-20] MEDS: 0.9 % SODIUM CHLORIDE 1,000 ML 500 ML IV (01:30)
[2023-05-20] MEDS: LACTATED RINGER'S SOLUTION 1,000 ML 100 ML IV ×2 (02:54→13:26)
--- NOTE | 2023-05-20 03:05 | PC.NURSE ---
Patient woke up while resume writer was in room. She opened her eyes and stated theres constellations on the ceiling, like the big dipper Patient seemed under no distress and quickly fell back asleep
[2023-05-20 05:02] LABS: Basophils Absolute Auto 0.1 10^3/uL (0.0-0.1); Basophils Percent Auto 0.8 % (0.2-2.0); Eosinophils Absolute Auto 0.2 10^3/uL (0.0-0.7); Eosinophils Percent Auto 3.1 % (0.9-7.0); Immature Granulocytes Abs Auto 0.06 10^3/uL (0.00-0.03); Immature Granulocytes Pct Auto 0.8 % (0.0-0.5); Lymphocytes Absolute Auto 3.2 10^3/uL (1.2-3.8); Lymphocytes Percent Auto 41.1 % (20.5-60.0); Mean Corpuscular HGB Conc 29.7 g/dL (29.9-35.2); Mean Corpuscular Volume 94.1 fL (81.0-99.0); Mean Platelet Volume 11.5 fL (9.5-13.5); Monocytes Absolute Auto 0.5 10^3/uL (0.3-0.8); Monocytes Percent Auto 6.7 % (1.7-12.0); Neutrophils Absolute Auto 3.6 10^3/uL (1.4-6.5); Neutrophils Percent Auto 47.5 % (43.0-75.0); Platelet Count 167 10^3/uL (150-450); Red Blood Count 3.93 10^6/uL (4.20-5.40); Red Cell Distribution Width 14.6 % (11.0-15.0); White Blood Count 7.7 10^3/uL (4.0-11.0)
[2023-05-20] MEDS: PROPRANOLOL HCL 20 MG TABLET 10 MG PO ×4 (05:24→21:03)
[2023-05-20] MEDS: PHENobarbitaL 32.4 MG TABLET 32.3999999999999986 MG PO ×3 (05:24→21:03)
[2023-05-20 05:26] LABS: Alanine Aminotransferase 36 U/L (14-59); Albumin Globulin Ratio 0.9; Albumin Level 2.7 g/dL (3.4-5.0); Alkaline Phosphatase 155 U/L (46-116); Anion Gap 12.9; Aspartate Amino Transferase 27 U/L (15-37); BUN Creatinine Ratio 20.2; Bilirubin Total 0.5 mg/dL (0.2-1.0); Calcium 8.1 mg/dL (8.5-10.1); Carbon Dioxide 24.3 mmol/L (21.0-32.0); Chloride 109 mmol/L (98-107); Estimated GFR (African America >60 (>=60); Estimated GFR (Non-African Ame >60 (>=60); Glucose 102 mg/dL (74-106); Potassium 4.2 mmol/L (3.5-5.1); Sodium 142 mmol/L (136-145); Total Protein 5.7 g/dL (6.4-8.2)
--- NOTE | 2023-05-20 08:12 | P.DS_ITS ---
DS: Providers Provider Date of admission: 05/19/23 14:09 Primary care physician: Farhat Cabezas MD Consults: 05/19/23 Consult to Claim Processing Specialist Routine Reason for consult:: Advanced Directives 05/19/23 15:52 Consult to Pharmacy Routine Consulting Provider: Reason for consultation: Please [place] me when Med Rec is Updated Has provider been notified: No DS: Diagnosis Discharge Diagnosis (1) Dehydration: (2) Alcohol abuse: Plan Persistent nausea and vomiting, failed outpatient treatment with Phenergan, tachycardia, acute kidney injury with creatinine 25% above baseline(creatinine today 1.25, creatinine and previous blood work done about a month ago showed a creatinine of 1) resulting in significant dehydration History of alcohol abuse Iron deficiency [id number] as an outpatient Patient is having migraine off and on, Elevated TSH consistent with hypothyroidism Atelectasis-no hypoxia, will follow-up as an outpatient Anxiety with depression GERD Admission status: Likely just dehydration, likely less than 1 midnight stay, place patient observation status.-Not improving significantly in the next 24 hours will change patient to inpatient status as medically necessary treatment will span 2 midnights ? DS: Summary Hospital Course Hospital Course: Patient seen and evaluated in the office with persistent nausea vomiting with failed outpatient treatment with oral Phenergan. Patient is somewhat tachycardic in the office of patient was admitted for dehydration. She did have acute kidney injury with creatinine 125% above baseline -baseline creatinine drawn earlier this year was a creatinine of 1.0. Creatinine on admission was 1.25. Patient was given IV fluids overnight. She actually slept well overnight. Normal has been she drinks most of her alcohol and she denies any al cohol intake overnight. If she tolerates breakfast should be discharged home in improving condition. Medications see list. Follow-up with me in the office next week. Time Spent with Patient Time attestation: Total time spent providing and/or coordinating discharge services: Time spent: greater than 30 minutes Exam Constitutional Vital Signs, click to edit/add: Last Vital Signs Temp 97.7 F 05/20/23 04:00 Pulse 76 05/20/23 04:00 Resp 20 05/20/23 04:00 BP 134/86 05/20/23 04:00 Pulse Ox 93 L 05/20/23 04:00 O2 Del Method Room Air 05/20/23 04:00 Documenting provider has reviewed patient's vital signs: yes Common normals: no apparent distress HENMT Common normals: moist oral mucous membranes Respiratory Common normals: normal respiratory effort Cardio Common normals: regular rate and regular rhythm GI Common normals: Normal to inspection, nondistended, normoactive bowel sounds present, soft to palpation and non-tender DS: Data Data Completed and Pending Labs on day of discharge: Labs from last 24 hours 05/20/23 05/19/23 05/19/23 04:23 20:36 16:14 WBC 7.7 RBC 3.93 L Hgb 11.0 L Hct 37.0 MCV 94.1 MCH 28.0 MCHC 29.7 L RDW 14.6 Plt Count 167 MPV 11.5 Neut % (Auto) 47.5 Lymph % (Auto) 41.1 [place] % (Auto) 6.7 Eos % (Auto) 3.1 Baso % (Auto) 0.8 Neut # (Auto) 3.6 Lymph # (Auto) 3.2 [place] # (Auto) 0.5 Eos # (Auto) 0.2 Baso # (Auto) 0.1 Abs Immat Gran (auto) 0.06 H Imm/Tot Granulo (auto) 0.8 H Sodium 142 Potassium 4.2 Chloride 109 H Carbon Dioxide 24.3 Anion Gap 12.9 BUN 19.0 H Creatinine 0.94 Est GFR ( Amer) >60 Est GFR (Non-Af Amer) >60 BUN/Creatinine Ratio 20.2 Glucose 102 Lactate 2.0 Calcium 8.1 L Magnesium 2.0 Total Bilirubin 0.5 AST 27 ALT 36 Alkaline Phosphatase 155 H Ammonia 23 Total Protein 5.7 L Albumin 2.7 L Globulin 3.0 Albumin/Globulin Ratio 0.9 Amylase 44 Lipase 22.0 Urine Opiates Screen Ur Buprenorphine Scrn Ur Oxycodone Screen Urine Methadone Screen Ur Barbiturates Screen U Tricyclic Antidepress Ur Phencyclidine Scrn Ur Amphetamines Screen U Methamphetamines Scrn U Benzodiazepines Scrn Urine Cocaine Screen U Cannabinoids Screen Ethanol Quant <3 POC Glucose 133 H 05/19/23 12:44 WBC RBC Hgb Hct MCV MCH MCHC RDW Plt Count MPV Neut % (Auto) Lymph % (Auto) [place] % (Auto) Eos % (Auto) Baso % (Auto) Neut # (Auto) Lymph # (Auto) [place] # (Auto) Eos # (Auto) Baso # (Auto) Abs Immat Gran (auto) Imm/Tot Granulo (auto) Sodium Potassium Chloride Carbon Dioxide Anion Gap BUN Creatinine Est GFR ( Amer) Est GFR (Non-Af Amer) BUN/Creatinine Ratio Glucose Lactate Calcium Magnesium Total Bilirubin AST ALT Alkaline Phosphatase Ammonia Total Protein Albumin Globulin Albumin/Globulin Ratio Amylase Lipase Urine Opiates Screen Negative Ur Buprenorphine Scrn Negative Ur Oxycodone Screen Negative Urine Methadone Screen Negative Ur Barbiturates Screen Negative U Tricyclic Antidepress Negative Ur Phencyclidine Scrn Negative Ur Amphetamines Screen Negative U Methamphetamines Scrn Negative U Benzodiazepines Scrn Positive A Urine Cocaine Screen Negative U Cannabinoids Screen Negative Ethanol Quant POC Glucose Discharge Plan Discharge Disposition: Home, Self-Care Discharge Medications: Continued (DME) FreeStyle Lite Strips Strip MISCELLANEOUS (DME) blood-glucose meter [FreeStyle [place] Lite] Kit MISCELLANEOUS ropinirole 1 mg tablet 1 mg PO .qhs PRN (Reason: restless leg(s)) Rx Instructions: 1 to 3 hours before bedtime pantoprazole 40 mg tablet,delayed release (DR/EC) 40 mg PO Q24H PRN (Reason: stomach upset) levothyroxine 75 mcg tablet 75 mcg PO QAM Hold Instructions: HAS NOT TAKEN IN MONTHS BUT WOULD LIKE LEVELS DRAWN promethazine 25 mg tablet 25 mg PO Q6H PRN (Reason: nausea and vomiting) Qty: 30 11RF mirtazapine 7.5 mg tablet 7.5 mg PO .qhs zolpidem 10 mg tablet 10 mg PO .qhs albuterol sulfate 90 mcg/actuation HFA aerosol inhaler 1 puff INHALATION Q4H PRN (Reason: shortness of breath or wheezing) cyanocobalamin (vitamin B-12) 1,000 mcg/mL solution 1,000 mcg IM Q30D Rx Instructions: FILLED 05/04/23 Trulicity 3 mg/0.5 mL pen injector 3 mg SUBCUT QWEEK Patient Comments: WED WITH EVEENING MEAL ergocalciferol (vitamin D2) 1,250 mcg (50,000 unit) capsule 1,250 mcg PO .3XWEEK Patient Comments: TU//SAT lorazepam 1 mg tablet 1 mg PO TID PRN (Reason: anxiety) propranolol 10 mg tablet 10 mg PO QID sumatriptan succinate 100 mg tablet 100 mg PO Q2H PRN (Reason: migraine headache) aripiprazole [Abilify] 5 mg tablet 5 mg PO .QHS Print Language: Emirati Forms: Portal Instructions Follow Up Appointments: May 26 @ 2pm with Dr. Cabezas [phone]
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
--- NOTE | 2023-05-20 10:30 | P.PN_ITS ---
Progress Note: Subjective Subjective Interval history: Pt did better overnight , slept well, this am with some chest tightness and GRAY Exam Constitutional Vital Signs, click to edit/add: Last Vital Signs Temp 97.7 F 05/20/23 04:00 Pulse 80 05/20/23 11:54 Resp 20 05/20/23 04:00 BP 134/86 05/20/23 04:00 Pulse Ox 93 L 05/20/23 11:54 O2 Del Method Room Air 05/20/23 11:54 Documenting provider has reviewed patient's vital signs: yes Common normals: no apparent distress (Better than yesterday) HENMT Common normals: oral mucous membranes not moist (Slightly dry mucous membranes) Chest Common normals: inspection of chest normal and palpation of chest normal Respiratory Common normals: normal respiratory effort and no retractions Cardio Common normals: regular rhythm; irregular rate Rate: tachycardic GI Common normals: Normal to inspection, nondistended, normoactive bowel sounds present, soft to palpation, non-tender and no masses Extremity Common normals: normal to inspection, full ROM and no clubbing, cyanosis or edema Progress Note: Objective Labs Labs: Short CBC 05/20/23 Range/Units 04:23 WBC 7.7 (4.0-11.0) 10^3/uL Hgb 11.0 L (12.0-16.0) g/dL Hct 37.0 (36.0-48.0) % Plt Count 167 (150-450) 10^3/uL BMP 05/20/23 04:23 Sodium 142 Potassium 4.2 Chloride 109 H Carbon Dioxide 24.3 BUN 19.0 H Creatinine 0.94 Glucose 102 Calcium 8.1 L Liver Function 05/20/23 Range/Units 04:23 Total Bilirubin 0.5 (0.2-1.0) mg/dL AST 27 (15-37) U/L ALT 36 (14-59) U/L Alkaline Phosphatase 155 H (46-116) U/L Albumin 2.7 L (3.4-5.0) g/dL Progress Note: A&P Assessment and Plan (1) Dehydration: (2) Alcohol abuse: Plan Admission With: Persistent nausea and vomiting, failed outpatient treatment with Phenergan, tachycardia, acute kidney injury with creatinine 25% above baseline(creatinine today 1.25, creatinine and previous blood work done about a month ago showed a creatinine of 1) resulting in significant dehydration-IV fluids, will give bolus as well.-Tolerated all that well yesterday, creatinine is back to normal History of alcohol abuse-we will add the banana bag and the fluids as outlined above, CIWA scale, as needed Librium.-Did not sleep well last night Patient is having migraine off and on, will have as needed migraine medicine written for Chest x-ray with atelectasis-patient's morning has some dyspnea with exertion and feels tightness in her chest. Will check on labs. Possibly just related to the fluid status. Patient will need to stay 1 additional day for further evaluation Elevated TSH consistent with hypothyroidism-check to see if taking her medications lately with this recent illness Anxiety with depression-reviewed medications with her, see list, her psychiatrist continues to adjust her medications. Reviewed [facility] report GERD-continue with home medications Admission status: Previous note indicated observation, patient kidney function is improved but now with tightness in her chest and shortness of breath, cardiac workup today, possible discharge tomorrow, changed to inpatient status as her medically necessary treatment will span 2 midnights ?
--- NOTE | 2023-05-20 11:16 | SWNOTE1 ---
SW stopped in to speak with pt and she would like 5-10 more minutes to sleep prior to completing advanced directives.
[2023-05-20] MEDS: ALBUTEROL SULFATE 2.5 MG/3 ML VIAL NEB IH ×2 (11:52→23:38)
[2023-05-20] MEDS: CYANOCOBALAMIN 1,000 MCG/ML VIAL 1000 MCG IM (11:59)
[2023-05-20] MEDS: ERGOCALCIFEROL (VITAMIN D2) 1,250 MCG/50,000 UNITS CAPSULE 1250 MCG PO (11:59)
--- NOTE | 2023-05-20 12:36 | ECG_ITS ---
[facility] Test Date: 2023-05-20 Pat Name: PRADIP MORFIN Department: Room: [facility] Gender: Female Calibration Engineer: : [id number] Requested By: MARIBEL PINEDA Order Number: [id number] Reading MD: CONTRERAS RUSH Measurements Intervals [place] Rate: 94 P: 16 MI: 133 QRS: -46 QRSD: 83 T: 0 QT: 356 QTc: 446 Interpretive Statements SINUS RHYTHM PATTERN CONSISTENT WITH PULMONARY DISEASE LEFT ANTERIOR FASCICULAR BLOCK [QRS AXIS <= -45, QR IN I, RS IN II] Compared to ECG 04/02/2022 15:06:30 Left anterior fascicular block now present Electronically Signed On 05-24-2023 23:02:32 EDT by CONTRERAS RUSH
--- NOTE | 2023-05-20 13:01 | SWNOTE1 ---
SW completed Health Care Power of Automotive Porter and Living Will with pt. SW made copy and placed in chart. Pt provided with copy and original booklet.
[2023-05-20 13:25] LABS: Troponin I High Sensitivity 7.5 pg/mL (4.0-51.3)
[2023-05-20] MEDS: LORAZEPAM 1 MG TABLET PO (13:26)
[2023-05-20] MEDS: KETOROLAC TROMETHAMINE 30 MG/ML VIAL 15 MG IVP (15:28)
[2023-05-20 16:04] LABS: Troponin I High Sensitivity 8.7 pg/mL (4.0-51.3)
[2023-05-20] MEDS: ACETAMINOPHEN 500 MG TABLET 1000 MG PO (17:21)
[2023-05-20] MEDS: ONDANSETRON PF 4 MG/2 ML VIAL IV (17:23)
[2023-05-20] MEDS: CLORDIAZEPOXIDE HCl 25 MG CAPSULE PO (18:21)
[2023-05-20] MEDS: PROMETHAZINE HCL 25 MG in 0.9 % SODIUM CHLORIDE 50 ML 204 MG IV (18:22)
[2023-05-20 18:55] LABS: Troponin I High Sensitivity 7.5 pg/mL (4.0-51.3)
--- NOTE | 2023-05-20 19:47 | RESP.RT ---
Pt denies need for breathing tx. No respiratory distress noted. Pt made aware to call if needed.
[2023-05-20] MEDS: ARIPIPRAZOLE 5 MG TABLET PO (21:02)
[2023-05-20] MEDS: PANTOPRAZOLE SODIUM 40 MG VIAL IV (21:02)
[2023-05-20] MEDS: ZOLPIDEM TARTRATE 10 MG TABLET PO (21:02)
[2023-05-20] MEDS: MIRTAZAPINE 15 MG TABLET 7.5 MG PO (21:03)
[2023-05-21] MEDS: PROMETHAZINE HCL 25 MG in 0.9 % SODIUM CHLORIDE 50 ML 204 MG IV (03:33)
[2023-05-21] MEDS: CLORDIAZEPOXIDE HCl 25 MG CAPSULE PO (03:33)
[2023-05-21] MEDS: KETOROLAC TROMETHAMINE 30 MG/ML VIAL 15 MG IVP (03:33)
[2023-05-21 03:49] VITALS: BP 129/81; PULSE 88; TEMP 36.5; O2SAT 92
[2023-05-21 04:56] LABS: Basophils Absolute Auto 0.1 10^3/uL (0.0-0.1); Basophils Percent Auto 0.7 % (0.2-2.0); Eosinophils Absolute Auto 0.3 10^3/uL (0.0-0.7); Eosinophils Percent Auto 3.6 % (0.9-7.0); Hematocrit 33.8 % (36.0-48.0); Hemoglobin 10.5 g/dL (12.0-16.0); Immature Granulocytes Abs Auto 0.08 10^3/uL (0.00-0.03); Immature Granulocytes Pct Auto 1.1 % (0.0-0.5); Lymphocytes Absolute Auto 2.5 10^3/uL (1.2-3.8); Lymphocytes Percent Auto 34.9 % (20.5-60.0); Mean Corpuscular HGB Conc 31.1 g/dL (29.9-35.2); Mean Corpuscular Hemoglobin 28.3 pg (26.7-34.0); Mean Corpuscular Volume 91.1 fL (81.0-99.0); Mean Platelet Volume 10.8 fL (9.5-13.5); Monocytes Absolute Auto 0.5 10^3/uL (0.3-0.8); Monocytes Percent Auto 6.9 % (1.7-12.0); Neutrophils Absolute Auto 3.8 10^3/uL (1.4-6.5); Neutrophils Percent Auto 52.8 % (43.0-75.0); Platelet Count 219 10^3/uL (150-450); Red Blood Count 3.71 10^6/uL (4.20-5.40); Red Cell Distribution Width 14.6 % (11.0-15.0); White Blood Count 7.2 10^3/uL (4.0-11.0)
[2023-05-21 05:18] LABS: Alanine Aminotransferase 34 U/L (14-59); Albumin Globulin Ratio 0.9; Albumin Level 2.9 g/dL (3.4-5.0); Alkaline Phosphatase 164 U/L (46-116); Anion Gap 12.7; Aspartate Amino Transferase 26 U/L (15-37); BUN Creatinine Ratio 21.5; Bilirubin Total 0.3 mg/dL (0.2-1.0); Calcium 8.3 mg/dL (8.5-10.1); Carbon Dioxide 24.6 mmol/L (21.0-32.0); Chloride 107 mmol/L (98-107); Estimated GFR (African America >60 (>=60); Estimated GFR (Non-African Ame >60 (>=60); Globulin 3.2 g/dL; Glucose 102 mg/dL (74-106); Potassium 4.3 mmol/L (3.5-5.1); Sodium 140 mmol/L (136-145); Total Protein 6.1 g/dL (6.4-8.2)
[2023-05-21] MEDS: PHENobarbitaL 32.4 MG TABLET 32.3999999999999986 MG PO (05:58)
[2023-05-21] MEDS: LEVOTHYROXINE SODIUM 75 MCG TABLET PO (05:58)
[2023-05-21] MEDS: PROPRANOLOL HCL 20 MG TABLET 10 MG PO (05:58)
--- NOTE | 2023-05-21 07:50 | P.DS_ITS ---
DS: Providers Provider Date of admission: 05/20/23 13:30 Primary care physician: Farhat Cabezas MD Consults: 05/19/23 Consult to Ornamental Metal Worker Helper Routine Reason for consult:: Advanced Directives 05/19/23 15:52 Consult to Pharmacy Routine Consulting Provider: Reason for consultation: Please [place] me when Med Rec is Updated Has provider been notified: No DS: Diagnosis Discharge Diagnosis (1) Dehydration: (2) Alcohol abuse: Plan Admission With: Persistent nausea and vomiting, failed outpatient treatment with Phenergan, tachycardia, acute kidney injury with creatinine 25% above baseline(creatinine today 1.25, creatinine and previous blood work done about a month ago showed a creatinine of 1.0) resulting in significant dehydration History of alcohol abuse-we will add the banana bag and the fluids as outlined above, CIWA scale, as needed Librium. Patient is having migraine off and on, Chest x-ray with atelectasis-patient's morning has some dyspnea with exertion and feels tightness in her chest. Elevated BNP Elevated TSH consistent with hypothyroidism Anxiety with depression GERD Admission status: Previous note indicated observation, patient kidney function is improved but now with tightness in her chest and shortness of breath, cardiac workup today, possible discharge tomorrow, changed to inpatient status as her medically necessary treatment will span 2 midnights ? ? DS: Summary Hospital Course Hospital Course: Patient seen and evaluated in the office with persistent nausea vomiting with failed outpatient treatment with oral Phenergan. Patient is somewhat tachycardic in the office of patient was admitted for dehydration. She did have acute kidney injury with creatinine 125% above baseline -baseline creatinine drawn earlier this year was a creatinine of 1.0. Creatinine on admission was 1.25. Likely discharge yesterday morning when patient had acute onset of shortness of breath and some chest tightness. BNP was obtained and showed elevated BNP. Troponins were also trended those were negative, EKG was normal, IV fluids were discontinued, patient had slow improvement of her shortness of breath throughout the course of the day. We did hold off on echocardiogram as patient was overall improving and no findings on EKG. This morning she feels the tightness in her chest is gone. Her shortness of breath is improved. Will discharge patient to home in improving condition. Medications see list. Follow-up with me in the office next week. Continue to follow-up with psychiatry. Time Spent with Patient Time attestation: Total time spent providing and/or coordinating discharge services: Exam Constitutional Vital Signs, click to edit/add: Last Vital Signs Temp 97.7 F 05/21/23 03:49 Pulse 88 05/21/23 03:49 Resp 18 05/21/23 03:49 BP 129/81 05/21/23 03:49 Pulse Ox 92 L 05/21/23 03:49 O2 Del Method Room Air 05/21/23 03:49 Documenting provider has reviewed patient's vital signs: yes Common normals: no apparent distress (Better than yesterday) HENMT Common normals: oral mucous membranes not moist (Slightly dry mucous membranes) Chest Common normals: inspection of chest normal and palpation of chest normal Respiratory Common normals: normal respiratory effort and no retractions Cardio Common normals: regular rate and regular rhythm Rate: not tachycardic GI Common normals: Normal to inspection, nondistended, normoactive bowel sounds present, soft to palpation, non-tender and no masses Extremity Common normals: normal to inspection, full ROM and no clubbing, cyanosis or edema DS: Data Data Completed and Pending Labs on day of discharge: Labs from last 24 hours 05/21/23 05/20/23 05/20/23 04:17 18:31 15:21 WBC 7.2 RBC 3.71 L Hgb 10.5 L Hct 33.8 L MCV 91.1 MCH 28.3 MCHC 31.1 RDW 14.6 Plt Count 219 MPV 10.8 Neut % (Auto) 52.8 Lymph % (Auto) 34.9 [place] % (Auto) 6.9 Eos % (Auto) 3.6 Baso % (Auto) 0.7 Neut # (Auto) 3.8 Lymph # (Auto) 2.5 [place] # (Auto) 0.5 Eos # (Auto) 0.3 Baso # (Auto) 0.1 Abs Immat Gran (auto) 0.08 H Imm/Tot Granulo (auto) 1.1 H Sodium 140 Potassium 4.3 Chloride 107 Carbon Dioxide 24.6 Anion Gap 12.7 BUN 20.0 H Creatinine 0.93 Est GFR ( Amer) >60 Est GFR (Non-Af Amer) >60 BUN/Creatinine Ratio 21.5 Glucose 102 Calcium 8.3 L Total Bilirubin 0.3 AST 26 ALT 34 Alkaline Phosphatase 164 H Troponin I High Sens 7.5 8.7 NT-Pro-B Natriuret Pep Total Protein 6.1 L Albumin 2.9 L Globulin 3.2 Albumin/Globulin Ratio 0.9 05/20/23 12:53 WBC RBC Hgb Hct MCV MCH MCHC RDW Plt Count MPV Neut % (Auto) Lymph % (Auto) [place] % (Auto) Eos % (Auto) Baso % (Auto) Neut # (Auto) Lymph # (Auto) [place] # (Auto) Eos # (Auto) Baso # (Auto) Abs Immat Gran (auto) Imm/Tot Granulo (auto) Sodium Potassium Chloride Carbon Dioxide Anion Gap BUN Creatinine Est GFR ( Amer) Est GFR (Non-Af Amer) BUN/Creatinine Ratio Glucose Calcium Total Bilirubin AST ALT Alkaline Phosphatase Troponin I High Sens 7.5 NT-Pro-B Natriuret Pep 954.0 H Total Protein Albumin Globulin Albumin/Globulin Ratio Discharge Plan Discharge Disposition: Home, Self-Care Discharge Medications: New levothyroxine [Synthroid] 75 mcg tablet 75 mcg PO DAILY Qty: 30 11RF promethazine 25 mg tablet 25 mg PO Q4H PRN (Reason: nausea and vomiting) Qty: 60 11RF Continued (DME) FreeStyle Lite Strips Strip MISCELLANEOUS (DME) blood-glucose meter [FreeStyle [place] Lite] Kit MISCELLANEOUS ropinirole 1 mg tablet 1 mg PO .qhs PRN (Reason: restless leg(s)) Rx Instructions: 1 to 3 hours before bedtime pantoprazole 40 mg tablet,delayed release (DR/EC) 40 mg PO Q24H PRN (Reason: stomach upset) levothyroxine 75 mcg tablet 75 mcg PO QAM Hold Instructions: HAS NOT TAKEN IN MONTHS BUT WOULD LIKE LEVELS DRAWN promethazine 25 mg tablet 25 mg PO Q6H PRN (Reason: nausea and vomiting) Qty: 30 11RF mirtazapine 7.5 mg tablet 7.5 mg PO .qhs zolpidem 10 mg tablet 10 mg PO .qhs albuterol sulfate 90 mcg/actuation HFA aerosol inhaler 1 puff INHALATION Q4H PRN (Reason: shortness of breath or wheezing) cyanocobalamin (vitamin B-12) 1,000 mcg/mL solution 1,000 mcg IM Q30D Rx Instructions: FILLED 05/04/23 Trulicity 3 mg/0.5 mL pen injector 3 mg SUBCUT QWEEK Patient Comments: WED WITH EVEENING MEAL ergocalciferol (vitamin D2) 1,250 mcg (50,000 unit) capsule 1,250 mcg PO .3XWEEK Patient Comments: //SAT lorazepam 1 mg tablet 1 mg PO TID PRN (Reason: anxiety) propranolol 10 mg tablet 10 mg PO QID sumatriptan succinate 100 mg tablet 100 mg PO Q2H PRN (Reason: migraine headache) aripiprazole [Abilify] 5 mg tablet 5 mg PO .QHS Print Language: Greenlandic Forms: Portal Instructions Follow Up Appointments: May 26 @ 2pm with Dr. Cabezas [phone]
[2023-05-21 07:53] VITALS: BP 120/71; PULSE 79; TEMP 36.4; O2SAT 79; O2SAT 93
--- NOTE | 2023-05-24 13:29 | CM.DCFOLLOWU ---
1st attempt. No answer
--- NOTE | 2023-05-26 10:47 | CM.DCFOLLOWU ---
05/25- 2nd attempt. No answer
--- NOTE | 2023-05-28 11:12 | CM.DCFOLLOWU ---
Person spoke with: Esme How are you feeling? Ok How is your pain? No pain Did you understand your discharge instructions? Yes Do you have any questions about your discharge instructions? No Were you given any prescriptions at discharge? Yes Were you able to get your prescriptions filled? Yes Do you understand how to take your medications as ordered? Yes Do you have any questions about your follow up appointment and do you plan to keep your follow up appointment? I had to reschedule Is there anything else that you would like to discuss? No Questions/Comments/Concerns/Other:
== END 2023-05-21 09:12 | disposition home or self-care (01) | DRG 422 ==
PROVIDERS: Admitting Provider Family Medicine; PCP Family Medicine; Visit Provider Family Medicine
DX: E86.0 Dehydration (principal); N17.9 Acute kidney failure, unspecified; G43.909 Migraine, unspecified, not intractable, without status migrainosus; F41.8 Other specified anxiety disorders; R11.2 Nausea with vomiting, unspecified; E66.9 Obesity, unspecified; Z68.41 Body mass index [BMI] 40.0-44.9, adult; R00.0 Tachycardia, unspecified; J98.11 Atelectasis; R06.09 Other forms of dyspnea; K21.9 Gastro-esophageal reflux disease without esophagitis; F10.10 Alcohol abuse, uncomplicated; E53.8 Deficiency of other specified B group vitamins; D64.9 Anemia, unspecified; M79.7 Fibromyalgia; E06.3 Autoimmune thyroiditis; E11.9 Type 2 diabetes mellitus without complications; R35.0 Frequency of micturition; R60.0 Localized edema; F12.90 Cannabis use, unspecified, uncomplicated; R06.02 Shortness of breath; Z98.84 Bariatric surgery status; Z90.49 Acquired absence of other specified parts of digestive tract; Z85.850 Personal history of malignant neoplasm of thyroid; Z79.85 Long-term (current) use of injectable non-insulin antidiabetic drugs; Z79.899 Other long term (current) drug therapy; Z79.890 Hormone replacement therapy; T14.8XXA Other injury of unspecified body region, initial encounter
CPT/HCPCS: 36415; 74022; 80053; 80307; 80320; 81001; 82140; 82150; 82607; 82728; 82746; 82948; 83036; 83540; 83605; 83690; 83735; 83880; 84436; 84443; 84481; 84484; 85025; 85610; 85730; 87086; 93005; 94640; 94667; 94668; 94761; 96361; 96365; 96366; 96367; 96372; 96375; 96376; G0378; J3420

== ENCOUNTER 2023-06-09 20:38 | Outpatient (OUT) | payer OTHER, SELFPAY | END 2023-06-09 20:39 | disposition home or self-care (01) | LOC: SLEEP 20:38 | PROVIDERS: PCP Family Medicine; Visit Provider Family Medicine | DX: G47.33 Obstructive sleep apnea (adult) (pediatric) (principal) | CPT/HCPCS: 95810 ==

== ENCOUNTER 2023-06-15 20:00 | Outpatient (OUT) | payer OTHER, SELFPAY ==
--- OUTSIDE RECORDS SUMMARY | 2023-06-16 07:28 | XMS_ITS | CCD ---
Author Organization [facility] Care Team Providers Care Pharmaceutical Engineer Name Role Phone JANE DIAZ A Attending Unavailable JANE DIAZ Admitting Unavailable FARHAT PINEDA Referring Unavailable FARHAT PINEDA Primary Care Unavailable Farhat Pineda MD Primary Care Provider Farhat Pineda MD Primary Care Provider Farhat Pineda MD Primary Care Provider Farhat Pineda Primary Care Physician Farhat Pineda MD Primary [...] JOELLE Pelayo Consulting Unavailable HOY ., DR LÓPEZ Attending [...] Unavailable MD Farhat Pineda Primary Care Provider [phone] MD Bipin Roth Jr Emergency Provider DO Candice Sifuentes Emergency Provider [phone] SILVANA MASON Attending UnavailSILVANA Butt Admitting Unavailabl Ladarius Smith Attending Unavailable SILVANA MASON Attending UnavailELEANOR Barrientos Referring Unavailable HOY, FARHAT M Primary Care Unavailable HOY, FARHAT M Primary Care Unavailable LIZZIE LEAVITT Referring Unavailable HOY, FARHAT M Primary Care Unavailable ADILENE ORDOÑEZ Referring Unavailable HOY, FARHAT M Primary Care Unavailable ADILENE ORDOÑEZ Referring Unavailable MD Edwin Farhat M Primary Care Provider [phone] MD Prince Tucker Attending Provider [phone] SILVANA Little Emergency Provider MD Prince Tucker Admit Provider LUIS F BARRAZA Attending Unavailable HOY, FARHAT M Primary Care Unavailable LUIS F BARRAZA Referring Unavailable BIPIN NINA Attending Unavailable HOY, FARHAT M Primary Care Unavailable MARICHUY SUAREZ Attending Unavailable HOY, FARHAT M Primary Care Unavailable BIPNI NINA Referring Unavailable HOY, FARHAT M Primary [...] Care Unavailable ADILENE ORDOÑEZ Attending Unavailable HOY, FAHRAT M Primary Care Unavailable ELEANOR KENNY Attending [...] Care Unavailable ELEANOR KENNY Attending Unavailable ADILENE ORDÑOEZ Referring Unavailable HOY, FARHAT M Primary Care [...] DRUG)] Drug allergy (disorder) 03-05-19 17 [facility] (20 sources) Ibuprofen; Translations: [ibuprofen] Drug Allergy 11-06-19 16 Other: See Comments, Gastrointestinal hemorrhage (disorder) [facility] (20 sources) Iodine; Translations: [IODINE] Drug Allergy 11-05-19 21 Other: See Comments [facility] (20 sources) meloxicam; Translations: [MELOXICAM] Drug Allergy 08-06-19 17 Intolerance [facility] (9 sources) Non-steroidal anti-inflammato ry agent; Translations: [NSAIDs] Drug Allergy 03-05-19 17 Unknown [facility] (20 sources) predniSONE; Translations: [PREDNISONE] Drug Allergy 08-06-19 17 Contraindication-Me dical Surgical [facility] (20 sources) Scopolamine; Translations: [scopolamine] Drug Allergy 12-02-19 Mental Status Change [facility] (20 sources) Non-steroidal anti-inflammato ry agent Drug Allergy 03-05-19 17 Unknown [facility] (6 sources) Contrast media; Translations: [Contrast Dye] Drug allergy renal failure [facility] (6 sources) metFORMIN; Translations: [metformin] Drug Allergy Upset stomach (finding) [facility] (1 source) metFORMIN Drug Allergy [facility] Repository (1 source) Scopolamine Drug Allergy [facility] (1 source) Ibuprofen; Translations: [Motrin] Drug Allergy [facility] Repository (1 source) NSAIDs; Translations: [NSAIDs] Propensity to adverse reactions (disorder) [facility] Repository (1 source) Scopalamine Hydrobromide Trihydrate; Translations: [Scopalamine Hydrobromide Trihydrate] Propensity to adverse reactions (disorder) [facility] Repository (1 source) Ibuprofen Drug Allergy 05-24-19 [facility] Repository Medications Current Medications Medication Drug Class(es) Dates Sig (Normalized) Sig (Original) [id number] 200 actuat albuterol 0.09 mg/actuat metered dose [...] day(s), # 21 tab(s), Refills(s) 0, Pharmacy: [email or web address], 157.7, cm, 01/14/23 10:54:00 EST, Height/Length Dosing, 100.9, kg, 01/14/23 10:54:00 EST, Weight Dosing Start Date: 03/26/23 Stop Date: 04/02/23 Status: Ordered brompheniramine maleate 0.4 mg/ml / dextromethorphan hydrobromide 2 mg/ml / pseudoephedrine hydrochloride 6 mg/ml oral solution (2 sources) alpha-Adrenergic Agonist, Uncompetitive G-nnwtzs-A-aspartate Receptor Antagonist, Sigma-1 Agonist Start: 03-26-2023 End: 04-02-2023 take 5 mL by mouth four times daily for cough and congestion Bromfed DM oral syrup 5 mL, Oral, QID for cough and congestion for 7 day(s), 140 mL, Refill(s) 0, [email or web address], 157.7, cm, 01/14/23 10:54:00 EST, Height/Length [...] current use of insulin (HCC) Use 1 [place] in the nose as needed for low blood sugar. May repeat after 15 minutes using a new device if there is no response. 2 Each 2 07/01/2022 Active Comment on above: Use 1 [place] in the n ose as needed for [...] Start Date: 04/30/20 Status: Ordered polymyxin b 51512 unt/ml / trimethoprim 1 mg/ml ophthalmic solution (1 source) Dihydrofolate Reductase Inhibitor Antibacterial, Polymyxin-class Antibacterial Start: 11-30-19 End: 12-07-19 Polytrim 10 mL Soln-Opth 1 drop(s), OPTH, q3hr for 7 day(s), 10 mL, Refill(s) 0, [email or web address], 157, cm, 11/29/21 9:55:00 EDT, Height/Length [...] Inhalation, QID, 1 EA, Refill(s) 0, [facility], 160, cm, 04/30/20 17:21:00 EDT, Height/Length [...] hyperglycemia, without long-term current use of insulin ([facility]) , Class 3 severe obesity with serious [...] coma, without long-term current use of insulin ([facility]) Inject 3 mg subcutaneously one time a [...] anxiety, # 20 cap(s), Refills(s) 0, Pharmacy: [email or web address], 160, cm, 07/10/20 14:54:00 EDT, Height/Length Dosing, 90, kg, 07/10/20 14:54:00 EDT, Weight Dosing Start Date: 07/10/20 Status: Ordered take 1 capsule by mo [facility] every twelve hours as needed hydrOXYzine pamoate [...] Comment on above: [facility] meclizine hydrochloride 25 mg oral [...] Comment on above: [facility] 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] Onset: 2 Episodic Other [...] lead ECGon 05-25-2023 ECG 12 lead ECG [facility] [place] [place] [address] Electrocardiograph Report Signed Patient: Esme Morfin MR#: [id number] 34 : 1975 Acct:[id number] Age/Sex: 47 / F ADM Date: 05/25/23 Loc: Room: [address] [place] [address] Type: ADM IN Attending Dr: Prince Tucker [...] in Lateral leads Confirmed by Yoan Huddleston ([id number]) on 05/25/2023 1:53:12 PM Referred By: Electronically Signed By:Yoan Huddleston Transcribed By: MUS Signed By Yoan Huddleston MD 05/25/23 1353 Normal [facility] Alanine aminotransferase [En zymatic activity/volume] in Serum or PlasmaOrdered By: Tank Little on 05-24-2023 ALT [Catalytic activity/Vol] 21 U/L 7-52 [facility] Albumin [Mass/volume] in Ser um or Plasma by Bromocresol green (BCG) dye binding methoOrdered By: Tank Little on 05-24-2023 Albumin BCG dye [Mass/Vol] 4.0 g/dL 3.5-5.7 [facility] Alkaline phosphatase [Enzyma tic activity/volume] in Serum or PlasmaOrdered By: Tank Little on 05-24-2023 ALP [Catalytic activity/Vol] 123 U/L 34-104 [facility] Amphetamine Screen Ql (U)Ord ered By: Tank Little on 05-24-2023 Amphetamines Ql (U) Negative Negative [facility] Aspartate aminotransferase [ Enzymatic activity/volume] in Serum or PlasmaOrdered By: Tank Little on 05-24-2023 AST [Catalytic activity/Vol] 27 U/L 13-39 [facility] Barbiturates [Presence] in U rine by Screen methodOrdered By: Tank Little on 05-24-2023 Barbiturates Screen Ql (U) Negative Negative [facility] Basophils Auto (Bld) [#/Vol] Ordered By: Tank Little on 05-24-2023 Basophils (Bld) [#/Vol] 0.1 10*3/uL 0.0-0.2 [facility] Basophils/100 WBC Auto (Bld) Ordered By: Tank Little on 05-24-2023 Basophils/100 WBC (Bld) 1.0 % . [facility] Benzodiazepines Screen Ql (U )Ordered By: Tank Little on 05-24-2023 Benzodiazepines Ql (U) Positive Negative [facility] Benzoylecgonine [Presence] i n Urine by Screen methodOrdered By: Tank Little on 05-24-2023 Benzoylecgonine Screen Ql (U) Negative Negative [facility] Bilirubin Test strip Ql (U)O rdered By: Tank Little on 05-24-2023 Bilirubin Ql (U) Negative Negative [facility] Bilirubin.total [Mass/volume ] in Serum or PlasmaOrdered By: Tank Little on 05-24-2023 Bilirubin [Mass/Vol] 0.3 mg/dL 0.3-1.0 [facility] Calcium [Mass/volume] in Ser um or PlasmaOrdered By: Tank Little on 05-24-2023 Calcium [Mass/Vol] 8.6 mg/dL 8.6-10.3 [facility] Cannabinoids [Presence] in U rine by Screen methodOrdered By: Tank Little on 05-24-2023 Cannabinoids Screen Ql (U) Negative Negative [facility] Comment on above: These are unconfirme d results and should not be used for legal purposes. Drug Cut-Off Concentration: AMPH 1000 ng/mL LIYA 200 ng/mL HAILEY 200 ng/mL COCM 300 ng/mL OP 300 ng/mL PCP 25 ng/mL THC 20 ng/mL Carbon dioxide, total [Moles /volume] in Serum or PlasmaOrdered By: Tank Little on 05-24-2023 CO2 [Moles/Vol] 24.0 mmol/L 21.0-31.0 [facility] Chloride [Moles/volume] in S jemal or PlasmaOrdered By: Tank Little on 05-24-2023 Chloride [Moles/Vol] 106 mmol/L 98-107 [facility] Color Auto (U)Ordered By: Randy Little on 05-24-2023 Color (U) Yellow Yellow [facility] Complete Blood Count Auto Di ffon 05-24-2023 Basophils (Bld) [#/Vol] 0.1 10*3/uL Normal 0.0-0.2 [facility] Comment on above: Result Comment: PERF ORMED BY: [place] [address] PATHOLOGIST [employer] PROFESSOR NETO FLORENTINO M.D. Performed By: #### E MIROSLAVA, CMP, LIPID, [id number], TSH3 wRFLX, CBC #### [facility] [address] Basophils/100 WBC (Bld) 1.0 % Normal . [facility] Comment on above: Performed By: #### E MIROSLAVA, CMP, LIPID, [id number], TSH3 wRFLX, CBC #### [address] Eosinophils (Bld) [#/Vol] 0.4 10*3/uL Normal 0.0-0.45 [facility] Comment on above: Performed By: #### E MIROSLAVA, CMP, LIPID, [id number], TSH3 wRFLX, CBC #### [address] Eosinophils/100 WBC (Bld) 4.1 % Normal . [facility] Comment on above: Performed By: #### E MIROSLAVA, CMP, LIPID, [id number], TSH3 wRFLX, CBC #### [address] Erythrocyte distribution width (RBC) [Ratio] 15.1 % Normal 11.9-15.3 [facility] Comment on above: Performed By: #### E MIROSLAVA, CMP, LIPID, [id number], TSH3 wRFLX, CBC #### [address] Hematocrit (Bld) [Volume fraction] 38.7 % Normal 34.0-46.4 [facility] Comment on above: Performed By: #### E MIROSLAVA, CMP, LIPID, [id number], TSH3 wRFLX, CBC #### [address] Hemoglobin (Bld) [Mass/Vol] 12.5 g/dL Normal 11.8-15.4 [facility] Comment on above: Performed By: #### E MIROSLAVA, CMP, LIPID, [id number], TSH3 wRFLX, CBC #### [address] Lymphocytes (Bld) [#/Vol] 2.7 10*3/uL Normal 1.00-4.8 [facility] Comment on above: Performed By: #### E MIROSLAVA, CMP, LIPID, [id number], TSH3 wRFLX, CBC #### [address] [place] [address] [place] Lymphocytes/100 WBC (Bld) 30.5 % Normal . [facility] Comment on above: Performed By: #### E MIROSLAVA, CMP, LIPID, [id number], TSH3 wRFLX, CBC #### [address] MCH (RBC) [Entitic mass] 27.7 pg Normal 24.7-34.3 [facility] Comment on above: Performed By: #### E MIROSLAVA, CMP, LIPID, [id number], TSH3 wRFLX, CBC #### [address] MCV (RBC) [Entitic vol] 85.6 fL Normal 80-100 [facility] Comment on above: Performed By: #### E MIROSLAVA, CMP, LIPID, [id number], TSH3 wRFLX, CBC #### [address] Mean Corpuscular HGB Conc 32.4 g/dL Normal 32.0-35.0 [facility] Comment on above: Performed By: #### E MIROSLAVA, CMP, LIPID, [id number], TSH3 wRFLX, CBC #### [address] Monocytes (Bld) [#/Vol] 0.9 10*3/uL High 0.0-0.8 [facility] Comment on above: Performed By: #### E MIROSLAVA, CMP, LIPID, [id number], TSH3 wRFLX, CBC #### [address] Monocytes/100 WBC (Bld) 17.70 % Normal 0.00-20.00 [facility] Comment on above: Performed By: #### E MIROSLAVA, CMP, LIPID, [id number], TSH3 wRFLX, CBC #### [address] Monocytes/100 WBC (Bld) 10.0 % Normal . [facility] Comment on above: Performed By: #### E MIROSLAVA, CMP, LIPID, [id number], TSH3 wRFLX, CBC #### [address] Neutrophils (Bld) [#/Vol] 4.8 10*3/uL Normal 1.8-7.7 [facility] Comment on above: Performed By: #### E MIROSLAVA, CMP, LIPID, [id number], TSH3 wRFLX, CBC #### [address] Neutrophils/100 WBC (Bld) 54.4 % Normal . [facility] Comment on above: Performed By: #### E MIROSLAVA, CMP, LIPID, [id number], TSH3 wRFLX, CBC #### [address] NRBC% 0.2 /100{WBC} Normal 0-0.5 [facility] Comment on above: Performed By: #### E MIROSLAVA, CMP, LIPID, [id number], TSH3 wRFLX, CBC #### [address] Platelet mean volume (Bld) [Entitic vol] 8.4 fL Normal 6.3-10.7 [facility] Comment on above: Performed By: #### E MIROSLAVA, CMP, LIPID, [id number], TSH3 wRFLX, CBC #### [address] Platelets (Bld) [#/Vol] 279 10*3/uL Normal 150-450 [facility] Comment on above: Performed By: #### E MIROSLAVA, CMP, LIPID, [id number], TSH3 wRFLX, CBC #### [place] [address] [place] RBC (Bld) [#/Vol] 4.52 10*6/uL Normal 3.60-5.00 [facility] Comment on above: Performed By: #### E MIROSLAVA, CMP, LIPID, [id number], TSH3 wRFLX, CBC #### [address] WBC (Bld) [#/Vol] 8.9 10*3/uL Normal 3.8-11.6 [facility] Comment on above: Performed By: #### E MIROSLAVA, CMP, LIPID, [id number], TSH3 wRFLX, CBC #### [address] Comprehensive Metabolic Pane christiano 05-24-2023 Albumin [Mass/Vol] 4.0 g/dL Normal 3.5-5.7 [facility] Comment on above: Performed By: #### U RDS, UA, UHCG #### [address] Albumin/Globulin [Mass ratio] 1.2 {ratio} Normal [facility] Comment on above: Performed By: #### U RDS, UA, UHCG #### [address] ALP [Catalytic activity/Vol] 123 U/L High 34-104 [facility] Comment on above: Performed By: #### U RDS, UA, UHCG #### [address] ALT [Catalytic activity/Vol] 21 U/L Normal 7-52 [facility] Comment on above: Performed By: #### U RDS, UA, UHCG #### [address] Anion gap [Moles/Vol] 13.3 mmol/L Normal 6.0-15.0 [facility] Comment on above: Performed By: #### U RDS, UA, UHCG #### [address] AST [Catalytic activity/Vol] 27 U/L Normal 13-39 [facility] Comment on above: Performed By: #### U RDS, UA, UHCG #### [address] Bilirubin [Mass/Vol] 0.3 mg/dL Normal 0.3-1.0 [facility] Comment on above: Performed By: #### U RDS, UA, UHCG #### [facility] [address] Calcium [Mass/Vol] 8.6 mg/dL Normal 8.6-10.3 [facility] Comment on above: Performed By: #### U RDS, UA, UHCG #### [facility] [address] Chloride [Moles/Vol] 106 mmol/L Normal 98-107 [facility] Comment on above: Performed By: #### U RDS, UA, UHCG #### [facility] [address] CO2 [Moles/Vol] 24.0 mmol/L Normal 21.0-31.0 [facility] Comment on above: Performed By: #### U RDS, UA, UHCG #### [facility] [address] Creatinine [Mass/Vol] 1.00 mg/dL Normal 0.60-1.20 [facility] Comment on above: Performed By: #### U RDS, UA, UHCG #### [facility] [address] [place] [address] [place] Creatinine Clr Calc Pharmacy 80.72 Normal [facility] Comment on above: Result Comment: PERF ORMED BY: [place] [address] PATHOLOGIST [employer] PROFESSOR NETO FLORENTINO M.D. Performed By: #### U RDS, UA, UHCG #### [facility] [address] [place] [address] [place] GFR/1.73 sq M.predicted MDRD (S/P/Bld) [Vol rate/Area] mL/min/{1.73_m2} Normal [facility] Comment on above: Performed By: #### U RDS, UA, UHCG #### [facility] [address] [place] [address] [place] Globulin (S) [Mass/Vol] 3.3 g/dL Normal [facility] Comment on above: Performed By: #### U RDS, UA, UHCG #### [facility] [address] Glucose [Mass/Vol] 118 mg/dL High 70-100 [facility] Comment on above: Result Comment: [place] Glucose Reference Range is dependent on time and content of last meal. Glucose of more than 200 mg/dL in a nonstressed, ambulatory subject supports the diagnosis of Diabetes Mellitus. ADA recommended reference range Performed By: #### U RDS, UA, UHCG #### [facility] [address] Potassium [Moles/Vol] 4.3 mmol/L Normal 3.5-5.1 [facility] Comment on above: Performed By: #### U RDS, UA, UHCG #### [address] Protein [Mass/Vol] 7.3 g/dL Normal 6.4-8.9 [facility] Comment on above: Performed By: #### U RDS, UA, UHCG #### [address] Sodium [Moles/Vol] 139 mmol/L Normal 136-145 [facility] Comment on above: Performed By: #### U RDS, UA, UHCG #### [place] [id number] [place] Urea nitrogen [Mass/Vol] 22 mg/dL Normal 7-25 [facility] Comment on above: Performed By: #### U RDS, UA, UHCG #### [place] [id number] [place] Creatinine [Mass/volume] in Serum or PlasmaOrdered By: Tank Little on 05-24-2023 Creatinine [Mass/Vol] 1.00 mg/dL 0.60-1.20 [facility] Drug Screen,Urineon 05-24-19 24 Amphetamine Screen,Urine Negative Normal Negative [facility] Comment on above: Performed By: #### U RDS, UA, UHCG #### [place] [address] [place] Barbiturate Screen,Urine Negative Normal Negative [facility] Comment on above: Performed By: #### U RDS, UA, UHCG #### [address] Benzodiazepines Screen,Urine Positive High Negative [facility] Comment on above: Performed By: #### U RDS, UA, UHCG #### [address] Cannabinoid Screen,Urine Negative Normal Negative [facility] Comment on above: Result Comment: Thes e are unconfirmed results and should not be used for legal purposes. Drug Cut-Off Concentration: AMPH 1000 ng/mL LIYA 200 ng/mL HAILEY 200 ng/mL COCM 300 ng/mL OP 300 ng/mL PCP 25 ng/mL THC 20 ng/mL PERFORMED BY: [place] [address] PATHOLOGIST [employer] PROFESSOR NETO FLORENTINO M.D. Performed By: #### U RDS, UA, CG #### [address] Cocaine Screen,Urine Negative Normal Negative [facility] Comment on above: Performed By: #### U RDS, UA, CG #### [address] Opiate Screen,Urine Negative Normal Negative [facility] Comment on above: Performed By: #### U RDS, UA, CG #### [address] Phencyclidine Screen,Urine Negative Normal Negative [facility] Comment on above: Performed By: #### U RDS, UA, CG #### [place] [address] [place] Eosinophils Auto (Bld) [#/Vo l]Ordered By: Tank Little on 05-24-2023 Eosinophils (Bld) [#/Vol] 0.4 10*3/uL 0.0-0.45 [facility] Eosinophils/100 WBC Auto (Bl d)Ordered By: Tank Little on 05-24-2023 Eosinophils/100 WBC (Bld) 4.1 % . [facility] Erythrocyte distribution wid th Auto (RBC) [Ratio]Ordered By: Tank Little on 05-24-2023 Erythrocyte distribution width (RBC) [Ratio] 15.1 % 11.9-15.3 [facility] Ethanol [Mass/volume] in Ser um or PlasmaOrdered By: Tank Little on 05-24-2023 Ethanol [Mass/Vol] 234 mg/dL [facility] Ethanol [Mass/Vol] 0.234 % [facility] Ethyl Alcohol Profileon 05-09 Ethanol [Mass/Vol] 234 mg/dL Normal [facility] Comment on above: Performed By: #### U EVELYNE , [facility] #### [address] Percent Ethanol 0.234 % Normal [facility] Comment on above: Result Comment: PERF ORMED BY: [place] [address] PATHOLOGIST [employer] PROFESSOR NETO FLORENTINO M.D. Performed By: #### U RANDI STUBBS, [facility] #### [facility] [address] [place] [address] Globulin Calc (S) [Mass/Vol] Ordered By: Tank Little on 05-24-2023 Globulin (S) [Mass/Vol] 3.3 g/dL [facility] Glucose [Mass/volume] in Ser um or PlasmaOrdered By: Tank Little on 05-24-2023 Glucose [Mass/Vol] 118 mg/dL 70-100 [facility] Comment on above: ADA recommended refe rence rangeRandom Glucose Reference Range is dependent on time and content of last meal. Glucose of more than 200 mg/dL in a nonstressed, ambulatory subject supports the diagnosis of Diabetes Mellitus. HCG ( test) IAwilliami d Ql (U)Ordered By: Tank Little on 05-24-2023 HCG ( test) Ql (U) Negative [facility] HCG,Urineon 05-24-2023 Beta HCG ( test) Ql (U) Negative Normal [facility] Comment on above: Order Comment: Name Collection Type:: Clean-Voided Midstream Result Comment: PERF ORMED BY: [place] [address] PATHOLOGIST [employer] PROFESSOR NETO FLORENTINO M.D. Performed By: #### U RDS, UA, UHCG #### [facility] [address] Hematocrit Auto (Bld) [Volum e fraction]Ordered By: Tank Little on 05-24-2023 Hematocrit (Bld) [Volume fraction] 38.7 % 34.0-46.4 [facility] Hemoglobin [Mass/volume] in BloodOrdered By: Tank Little on 05-24-2023 Hemoglobin (Bld) [Mass/Vol] 12.5 g/dL 11.8-15.4 [facility] Ketones Auto test strip (U) [Mass/Vol]Ordered By: Tnak Little on 05-24-2023 Ketones (U) [Mass/Vol] Negative Negative [facility] Leukocytes [#/volume] correc imtiaz for nucleated erythrocytes in Blood by Automated counOrdered By: Tank Little on 05-24-2023 WBC corrected for nucl RBC Auto (Bld) [#/Vol] 8.9 10*3/uL 3.8-11.6 [facility] Lipid Panelon 05-24-2023 Cholesterol [Mass/Vol] 167 mg/dL Normal 140-200 [facility] Comment on above: Result Comment: Chol less than 200 mg/dl low risk Chol 201-239 mg/dl borderline risk Chol 240 mg/dl and greater high risk Performed By: #### U RDS, UA, UHCG #### [facility] [address] [place] [id number] [facility] Cholesterol in HDL [Mass/Vol] 74 mg/dL Normal 23-92 [facility] Physician Group Comment on above: Result Comment: HDL CHOL ATP-III CLASSIFICATION Cardiovascular Risk HDL > or equal to 60 mg/dL LOW HDL < 40 mg/dL HIGH Performed By: #### U RDS, UA, UHCG #### [facility] [address] Cholesterol.total/Chol esterol in HDL [Mass ratio] 2.3 {ratio} Normal <5.0 [facility] Comment on above: Performed By: #### U EVELYNE, UA, [facility] #### [facility] [address] LDL Cholesterol,Calculated 56 mg/dL Normal 0-100 [facility] Comment on above: Result Comment: LDL ATP III CLASSIFICATION LDL less than 100 mg/dL Optimal LDL 100-129 mg/dL Near or above optimal LDL 130-159 mg/dL Borderline high LDL 160-189 mg/dL High LDL greater than 189 mg/dL Very high Performed By: #### U EVELYNE, UA, [facility] #### [facility] [address] Triglyceride w/Reflex 187 mg/dL High 0-149 [facility] Comment on above: Result Comment: TRIG ATP III CLASSIFICATION TRIG less than 150 mg/dL Normal TRIG 150-199 mg/dL Borderline high TRIG 200-500 mg/dL High TRIG greater than 500 mg/dL Very high Standard traceable to the Center for Disease Conrtrol and Prevention (CDC) test method. Performed By: #### U EVELYNE, UA, [facility] #### [facility] [address] VLDL CHOLESTEROL 37 mg/dL Normal [facility] Comment on above: Performed By: #### U EVELYNE, , [facility] #### [facility] [address] Lymphocytes Auto (Bld) [#/Vo l]Ordered By: Tank Little on 05-24-2023 Lymphocytes (Bld) [#/Vol] 2.7 10*3/uL 1.00-4.8 [facility] Lymphocytes/100 WBC Auto (Bl d)Ordered By: Tank Little on 05-24-2023 Lymphocytes/100 WBC (Bld) 30.5 % . [facility] MCH Auto (RBC) [Entitic mass ]Ordered By: Tank Little on 05-24-2023 MCH (RBC) [Entitic mass] 27.7 pg 24.7-34.3 [facility] MCHC Auto (RBC) [Mass/Vol]Or dered By: Tank Little on 05-24-2023 MCHC (RBC) [Mass/Vol] 32.4 g/dL 32.0-35.0 [facility] MCV Auto (RBC) [Entitic vol] Ordered By: Tank Little on 05-24-2023 MCV (RBC) [Entitic vol] 85.6 fL 80-100 [facility] Monocyte distribution width [Entitic volume] in Blood by AutomatedOrdered By: Tank Little on 05-24-2023 Monocyte distribution width Auto (Bld) [Entitic vol] 17.70 % 0.00-20.00 [facility] Monocytes Auto (Bld) [#/Vol] Ordered By: Tank Little on 05-24-2023 Monocytes (Bld) [#/Vol] 0.9 10*3/uL 0.0-0.8 [facility] Monocytes/100 WBC Auto (Bld) Ordered By: Tank Little on 05-24-2023 Monocytes/100 WBC (Bld) 10.0 % . [facility] Neutrophils Auto (Bld) [#/Vo l]Ordered By: Tank Little on 05-24-2023 Neutrophils (Bld) [#/Vol] 4.8 10*3/uL 1.8-7.7 [facility] Neutrophils/100 WBC Auto (Bl d)Ordered By: Tank Little on 05-24-2023 Neutrophils/100 WBC (Bld) 54.4 % . [facility] Nitrite Test strip Ql (U)Ord ered By: Tank Little on 05-24-2023 Nitrite Ql (U) Negative Negative [facility] No Panel InformationOrdered By: Tank Little on 05-24-2023 Estimated GFR (CKD-EPI) > 60.0 mL/Min [facility] Pharmacy Creatinine Clearance (Chem 80.72 [facility] Nucleated erythrocytes [Pres ence] in Blood by Automated countOrdered By: Tank Little on 05-24-2023 Nucleated RBC Auto Ql (Bld) 0.2 /100{WBC} 0-0.5 [facility] Opiates [Presence] in Urine by Screen methodOrdered By: Tank Little on 05-24-2023 Opiates Screen Ql (U) Negative Negative [facility] Phencyclidine Screen Ql (U)O rdered By: Tank Little on 05-24-2023 Phencyclidine Ql (U) Negative Negative [facility] Platelet mean volume Auto (B ld) [Entitic vol]Ordered By: Tank Little on 05-24-2023 Platelet mean volume (Bld) [Entitic vol] 8.4 fL 6.3-10.7 [facility] Platelets Auto (Bld) [#/Vol] Ordered By: Tank Little on 05-24-2023 Platelets (Bld) [#/Vol] 279 10*3/uL 150-450 [facility] Potassium [Moles/volume] in Serum or PlasmaOrdered By: Tank Little on 05-24-2023 Potassium [Moles/Vol] 4.3 mmol/L 3.5-5.1 [facility] Protein Auto test strip (U) [Mass/Vol]Ordered By: Tank Little on 05-24-2023 Protein (U) [Mass/Vol] Negative Negative [facility] Protein [Mass/volume] in Ser um or PlasmaOrdered By: Tank Little on 05-24-2023 Protein [Mass/Vol] 7.3 g/dL 6.4-8.9 [facility] RBC Auto (Bld) [#/Vol]Ordere d By: Tank Little on 05-24-2023 RBC (Bld) [#/Vol] 4.52 10*6/uL 3.60-5.00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 Panelon Anion gap [Moles/Vol] 14.9 mmol/L Normal 6.0-15.0 Th e [facility] Comment on above: Performed By: #### U RDS, UA, UHCG #### [address] Calcium [Mass/Vol] 9.7 mg/dL Normal 8.6-10.3 [facility] Comment on above: Performed By: #### U RDS, UA, UHCG #### [address] Chloride [Moles/Vol] 103 mmol/L Normal 98-107 [facility] Comment on above: Performed By: #### U RDS, UA, UHCG #### [address] CO2 [Moles/Vol] 22.9 mmol/L Normal 21.0-31.0 [facility] Comment on above: Performed By: #### U RDS, UA, UHCG #### [address] Creatinine [Mass/Vol] 1.20 mg/dL Normal 0.60-1.20 [facility] Comment on above: Performed By: #### U RDS, UA, UHCG #### [place] [address] [place] Creatinine Clr Calc Pharmacy 63.97 Normal [facility] Comment on above: Result Comment: PERF ORMED BY: [place] [address] PATHOLOGIST FOREST LAW AND POLICY PROFESSOR NETO FLORENTINO M.D. Performed By: #### U RDS, UA, UHCG #### [address] GFR/1.73 sq M.predicted MDRD (S/P/Bld) [Vol rate/Area] 55.490 mL/min/{1.73_m2} Normal [facility] Comment on above: Performed By: #### U RDS, UA, UHCG #### [address] Glucose [Mass/Vol] 107 mg/dL High 70-100 [facility] Comment on above: Result Comment: [facility] Glucose Reference Range is dependent on time and content of last meal. Glucose of more than 200 mg/dL in a nonstressed, ambulatory subject supports the diagnosis of Diabetes Mellitus. ADA recommended reference range Performed By: #### U RDS, UA, UHCG #### [address] Potassium [Moles/Vol] 3.8 mmol/L Normal 3.5-5.1 [facility] Comment on above: Performed By: #### U RDS, UA, UHCG #### [place] [address] [place] Sodium [Moles/Vol] 137 mmol/L Normal 136-145 [facility] Comment on above: Performed By: #### U RDS, UA, UHCG #### [address] Urea nitrogen [Mass/Vol] 16 mg/dL Normal 7-25 [facility] Comment on above: Performed By: #### U RDS, UA, UHCG #### [address] Complete Blood Count Auto Di ffon 02-08-2023 Basophils (Bld) [#/Vol] 0.1 10*3/uL Normal 0.0-0.2 [facility] Comment on above: Result Comment: PERF ORMED BY: [place] [address] PATHOLOGIST FOREST LAW AND POLICY PROFESSOR NETO FLORENTINO M.D. Performed By: #### U RDS, UA, UHCG #### [address] Basophils/100 WBC (Bld) 0.9 % Normal . [facility] Comment on above: Performed By: #### U RDS, UA, UHCG #### [address] Eosinophils (Bld) [#/Vol] 0.2 10*3/uL Normal 0.0-0.45 [facility] Comment on above: Performed By: #### U RDS, UA, UHCG #### [address] Eosinophils/100 WBC (Bld) 2.2 % Normal . [facility] Comment on above: Performed By: #### U RDS, UA, UHCG #### [address] Erythrocyte distribution width (RBC) [Ratio] 15.1 % Normal 11.9-15.3 [facility] Comment on above: Performed By: #### U RDS, UA, UHCG #### [address] Hematocrit (Bld) [Volume fraction] 42.8 % Normal 34.0-46.4 [facility] Comment on above: Performed By: #### U RDS, UA, UHCG #### [address] Hemoglobin (Bld) [Mass/Vol] 14.3 g/dL Normal 11.8-15.4 [facility] Comment on above: Performed By: #### U RDS, UA, UHCG #### [place] [address] [place] Lymphocytes (Bld) [#/Vol] 3.9 10*3/uL Normal 1.00-4.8 [facility] Comment on above: Performed By: #### U EVELYNE UA, [facility] #### [address] Lymphocytes/100 WBC (Bld) 37.6 % Normal . [facility] Comment on above: Performed By: #### U EVELYNE UA, [facility] #### [address] MCH (RBC) [Entitic mass] 29.0 pg Normal 24.7-34.3 [facility] Comment on above: Performed By: #### U EVELYNE , [facility] #### [address] MCV (RBC) [Entitic vol] 86.5 fL Normal 80-100 [facility] Comment on above: Performed By: #### U EVELYNE UA, [facility] #### [address] Mean Corpuscular HGB Conc 33.5 g/dL Normal 32.0-35.0 [facility] Comment on above: Performed By: #### U EVELYNE UA, [facility] #### [address] Monocytes (Bld) [#/Vol] 0.9 10*3/uL High 0.0-0.8 [facility] Comment on above: Performed By: #### U EVELYNE UA, [facility] #### [place] [address] [place] Monocytes/100 WBC (Bld) 18.92 % Normal 0.00-20.00 [facility] Comment on above: Performed By: #### U EVELYNE UA, [facility] #### [address] Monocytes/100 WBC (Bld) 8.7 % Normal . [facility] Comment on above: Performed By: #### U EVELYNE UA, [facility] #### [address] Neutrophils (Bld) [#/Vol] 5.2 10*3/uL Normal 1.8-7.7 [facility] Comment on above: Performed By: #### U RDS, UA, UHCG #### [address] Neutrophils/100 WBC (Bld) 50.6 % Normal . [facility] Comment on above: Performed By: #### U RDS, UA, UHCG #### [address] NRBC% 0.1 /100{WBC} Normal 0-0.5 [facility] Comment on above: Performed By: #### U RDS, UA, UHCG #### [address] Platelet mean volume (Bld) [Entitic vol] 7.8 fL Normal 6.3-10.7 [facility] Comment on above: Performed By: #### U RDS, UA, UHCG #### [address] Platelets (Bld) [#/Vol] 272 10*3/uL Normal 150-450 [facility] Comment on above: Performed By: #### U RDS, UA, UHCG #### [address] RBC (Bld) [#/Vol] 4.95 10*6/uL Normal 3.60-5.00 [facility] Comment on above: Performed By: #### U RDS, UA, UHCG #### [place] [address] [place] WBC (Bld) [#/Vol] 10.4 10*3/uL Normal 3.8-11.6 [facility] Comment on above: Performed By: #### U RDS, UA, UHCG #### [address] Creatine Kinaseon 02-08-2023 CK [Catalytic activity/Vol] 39 U/L Normal 30-223 [facility] Comment on above: Performed By: #### U RANDI STUBBS, [facility] #### [place] [id number] [facility] ECG 12 lead ECGon 02-08-2023 ECG 12 lead ECG [facility] [place] [address] [place] [address] Electrocardiograph Report Signed Patient: Esme Morfin MR#: [id number] 34 : 1975 Acct:[id number] Age/Sex: 47 / F ADM Date: 02/07/23 Loc: ER Room: Type: [facility] ER Attending Dr: Ordering Provider: Candice Sifuentes [...] By Candice Sifuentes DO 1840 Normal [facility] Partial Thromboplastin Timeo n 02-08-2023 aPTT Coag (Bld) [Time] 30.2 s Normal 25.1-36.5 Th [facility] Comment on above: Result Comment: A he matocrit value greater than 55% may lead to inaccurate results in coagulation testing. Patients having hematocrit values >55% require a special collection tube for coagulation studies. Please contact the laboratory at [phone] for redraw instructions. PERFORMED BY: [place] [address] PATHOLOGIST FOREST LAW AND POLICY PROFESSOR NETO FLORENTINO M.D. Performed By: #### U RANDI STUBBS, [facility] #### [place] [id number] [facility] Prothrombin Time INRon 02-08 INR Coag (PPP) [Relative time] 0.9 {INR} Normal [facility] Comment on above: Result Comment: [...] 4.5 Performed By: #### U EVELYNE, , [facility] #### [address] PT Coag (PPP) [Time] 9.9 s Normal 9.0-12.9 [facility] Comment on above: Result Comment: A he matocrit value greater than 55% may lead to inaccurate results in coagulation testing. Patients having hematocrit values >55% require a special collection tube for coagulation studies. Please contact the laboratory at [phone] for redraw instructions. Performed By: #### U EVELYNE , [facility] #### [address] Troponin I High Sensitivityo n 02-08-2023 Troponin I High Sensitivity 5.5 pg/mL Normal 0.0-15.0 [facility] Comment on above: Result Comment: PERF ORMED BY: [place] [address] PATHOLOGIST [employer] AND POLICY PROFESSOR NETO FLORENTINO M.D. Performed By: #### U EVELYNE, , [facility] #### [address] XR chest 2V*on 02-08-2023 XR chest 2V* [facility] Main [place] [address] [place] [address] XRay Report Signed Patient: Esme Morfin MR#: [id number] 34 : 1975 Acct:[id number] Age/Sex: 47 / F ADM Date: 02/07/23 Loc: ER Room: Type: [facility] ER Attending Dr: Copies to: Candice Sifuentes [...] Roberto Diego M.D.02/08/2023 10:00 AM Dictation Location: [place] [address] Transcribed By: [facility] 02/08/23 1000 Dictated By: Roberto Diego DO 02/08/23 0937 Signed By: 02/08/23 1000 Normal [facility] Activated partial thrombopla stin time (aPTT) in platelet poor plasma by coagulation aOrdered By: Candice Sifuentes on 02-07-2023 aPTT Coag (PPP) [Time] 30.2 s 25.1-36.5 [facility] Comment on above: A hematocrit value g reater than 55% may lead to inaccurate results in coagulation testing. Patients having hematocrit values >55% require a special collection tube for coagulation studies. Please contact the laboratory at [phone] for redraw instructions. Basophils Auto (Bld) [#/Vol] Ordered By: Candice Sifuentes on 02-07-2023 Basophils (Bld) [#/Vol] 0.1 10*3/uL 0.0-0.2 [facility] Basophils/100 WBC Auto (Bld) Ordered By: Candice Sifuentes on 02-07-2023 Basophils/100 WBC (Bld) 0.9 % . [facility] Calcium [Mass/volume] in Ser um or PlasmaOrdered By: Candice Sifuentes on 02-07-2023 Calcium [Mass/Vol] 9.7 mg/dL 8.6-10.3 [facility] Carbon dioxide, total [Moles /volume] in Serum or PlasmaOrdered By: Candice Sifuentes on 02-07-2023 CO2 [Moles/Vol] 22.9 mmol/L 21.0-31.0 [facility] Chloride [Moles/volume] in S jemal or PlasmaOrdered By: Candice Sifuentes on 02-07-2023 Chloride [Moles/Vol] 103 mmol/L 98-107 [facility] Creatine kinase [Enzymatic a ctivity/volume] in Serum or PlasmaOrdered By: Candice Sifuentes on 02-07-2023 CK [Catalytic activity/Vol] 39 U/L 30-223 [facility] Creatinine [Mass/volume] in Serum or PlasmaOrdered By: Candice Sifuentes on 02-07-2023 Creatinine [Mass/Vol] 1.20 mg/dL 0.60-1.20 [facility] Eosinophils Auto (Bld) [#/Vo l]Ordered By: Candice Sifuentes on 02-07-2023 Eosinophils (Bld) [#/Vol] 0.2 10*3/uL 0.0-0.45 [facility] Eosinophils/100 WBC Auto (Bl d)Ordered By: Candice Sifuentes on 02-07-2023 Eosinophils/100 WBC (Bld) 2.2 % . [facility] Erythrocyte distribution wid th Auto (RBC) [Ratio]Ordered By: Candice Sifuentes on 02-07-2023 Erythrocyte distribution width (RBC) [Ratio] 15.1 % 11.9-15.3 [facility] Glucose [Mass/volume] in Ser um or PlasmaOrdered By: Candice Sifuentes on 02-07-2023 Glucose [Mass/Vol] 107 mg/dL 70-100 [facility] Comment on above: ADA recommended refe rence rangeRandom Glucose Reference Range is dependent on time and content of last meal. Glucose of more than 200 mg/dL in a nonstressed, ambulatory subject supports the diagnosis of Diabetes Mellitus. Hematocrit Auto (Bld) [Volum e fraction]Ordered By: Candice Sifuentes on 02-07-2023 Hematocrit (Bld) [Volume fraction] 42.8 % 34.0-46.4 [facility] Hemoglobin [Mass/volume] in BloodOrdered By: Candice Sifuentes on 02-07-2023 Hemoglobin (Bld) [Mass/Vol] 14.3 g/dL 11.8-15.4 [facility] INR in Platelet poor plasma by Coagulation assayOrdered By: Candice Sifuentes on 02-07-2023 INR Coag (PPP) [Relative time] 0.9 {INR} [facility] Comment on above: INR Therapeutic Rang e [...] RBC Auto (Bld) [#/Vol] 10.4 10*3/uL 3.8-11.6 [facility] Lymphocytes Auto (Bld) [#/Vo l]Ordered By: Candice Sifuentes on 02-07-2023 Lymphocytes (Bld) [#/Vol] 3.9 10*3/uL 1.00-4.8 [facility] Lymphocytes/100 WBC Auto (Bl d)Ordered By: Candice Sifuentes on 02-07-2023 Lymphocytes/100 WBC (Bld) 37.6 % . [facility] MCH Auto (RBC) [Entitic mass ]Ordered By: Candice Sifuentes on 02-07-2023 MCH (RBC) [Entitic mass] 29.0 pg 24.7-34.3 [facility] MCHC Auto (RBC) [Mass/Vol]Or dered By: Candice Sifuentes on 02-07-2023 MCHC (RBC) [Mass/Vol] 33.5 g/dL 32.0-35.0 [facility] MCV Auto (RBC) [Entitic vol] Ordered By: Candice Sifuentes on 02-07-2023 MCV (RBC) [Entitic vol] 86.5 fL 80-100 [facility] [facility] Monocyte distribution width [Entitic volume] in Blood by AutomatedOrdered By: Candice Sifuentes on 02-07-2023 Monocyte distribution width Auto (Bld) [Entitic vol] 18.92 % 0.00-20.00 [facility] Monocytes Auto (Bld) [#/Vol] Ordered By: Candice Sifuentes on 02-07-2023 Monocytes (Bld) [#/Vol] 0.9 10*3/uL 0.0-0.8 [facility] Monocytes/100 WBC Auto (Bld) Ordered By: Candice Sifuentes on 02-07-2023 Monocytes/100 WBC (Bld) 8.7 % . [facility] Natriuretic peptide B [Mass/ Vol]Ordered By: Candice Sifuentes on 02-07-2023 Natriuretic peptide B (Bld) [Mass/Vol] 39.0 pg/mL 5-100 [facility] Neutrophils Auto (Bld) [#/Vo l]Ordered By: Candice Sifuentes on 02-07-2023 Neutrophils (Bld) [#/Vol] 5.2 10*3/uL 1.8-7.7 [facility] Neutrophils/100 WBC Auto (Bl d)Ordered By: Candice Sifuentes on 02-07-2023 Neutrophils/100 WBC (Bld) 50.6 % . [facility] No Panel InformationOrdered By: Candice Sifuentes on 02-07-2023 Estimated GFR (CKD-EPI) 55.490 mL/Min [facility] Creatinine Clearance (Chem 63.97 [facility] Nucleated erythrocytes [Pres ence] in Blood by Automated countOrdered By: Candice Sifuentes on 02-07-2023 Nucleated RBC Auto Ql (Bld) 0.1 /100{WBC} 0-0.5 [facility] Platelet mean volume Auto (B ld) [Entitic vol]Ordered By: Candice Sifuentes on 02-07-2023 Platelet mean volume (Bld) [Entitic vol] 7.8 fL 6.3-10.7 [facility] Platelets Auto (Bld) [#/Vol] Ordered By: Candice Sifuentes on 02-07-2023 Platelets (Bld) [#/Vol] 272 10*3/uL 150-450 [facility] Potassium [Moles/volume] in Serum or PlasmaOrdered By: Candice Sifuentes on 02-07-2023 Potassium [Moles/Vol] 3.8 mmol/L 3.5-5.1 [facility] Prothrombin time (PT)Ordered By: Candice Sifuentes on 02-07-2023 PT Coag (PPP) [Time] 9.9 s 9.0-12.9 [facility] Comment on above: A hematocrit value g reater than 55% may lead to inaccurate results in coagulation testing. Patients having hematocrit values >55% require a special collection tube for coagulation studies. Please contact the laboratory at [phone] for redraw instructions. RBC Auto (Bld) [#/Vol]Ordere d By: Candice Sifuentes on 02-07-2023 RBC (Bld) [#/Vol] 4.95 10*6/uL 3.60-5.00 [facility] Serum or plasma anion gap de terminationOrdered By: Candice Sifuentes on 02-07-2023 Anion gap [Moles/Vol] 14.9 mmol/L 6.0-15.0 [facility] Sodium [Moles/volume] in Ser um or PlasmaOrdered By: Candice Sifuentes on 02-07-2023 Sodium [Moles/Vol] 137 mmol/L 136-145 [facility] Troponin I.cardiac [Mass/vol ume] in Serum or Plasma by Detection limit <= 0.01 ng/Ordered By: Candice Sifuentes on 02-07-2023 Troponin I.cardiac DL <= 0.01 ng/mL [Mass/Vol] 5.5 pg/mL 0.0-15.0 [facility] Urea nitrogen [Mass/volume] in Serum or PlasmaOrdered By: Candice Sifuentes on 02-07-2023 Urea nitrogen [Mass/Vol] 16 mg/dL 7-25 [facility] WBC Auto (Bld) [#/Vol]Ordere d By: Candice Sifuentes on 02-07-2023 WBC (Bld) [#/Vol] 10.4 10*3/uL 3.8-11.6 [facility] CNOVon 02-05-2023 CNOV Office Visit (ENDONR ) -- ESME MORFIN ([id number]) 1975 F Date Time Provider Department 02/05/23 12:45 PM BIPIN NINA ENDONR During your visit today, we recorded the following information about you: Pulse Blood pressure Weight Height 92/minute 116/76 103.8 kg 1.6 m Halie Bland MA 02/05/2023 12:44 PM Signed PT states they tested several days this week and their BG has been in the 400's Bipin Nina APRN.[facility] 02/05/2023 1:44 PM Signed Endocrinology Follow-up Subjective [...] (BAQSIMI) 3 mg/actuation nasal spray Use 1 [place] in the nose as needed for low [...] Take 7.5 mg by mouth daily at [facility] (more content not included)... Normal [facility] 02-05-2023 [facility] Telephone ([facility]) -- ESME MORFIN ([id number]) 1975 F Date Time Provider Department 02/05/23 SARA STORM [facility] During your visit today, we recorded the following information about you: Sara Storm LSW 02/05/2023 3:08 PM Signed Endocrinology AND Metabolism Social Work Progress Note Provider Action / FYI toll test desk worker to check-in with Patient late next week. Esme Morfin [phone] Type of Contact: telephone Endocrine [employer]SEM[employer] SUPERVISOR Referral Reason: Mental Health Resources Contact Made?: YES- toll test desk worker confirmed patient's Name, , and Address, Note/Intervention: toll test desk worker calls Patient to discuss mental health [...] her job and is not currently working. toll test desk worker provides supportive and empathetic listening to Patient as she expresses her struggles with her mental health. Patient states she was seeing someone at [facility] (that facility works with the detox center Patient went to) and person there said she needs a higher level of care or go inpatient. Patient explains her family doctor kept trying to adjust her medications and it has not been working. Patient reports she currently sees a therapist and has an upcoming sleep disorders appointment at the [facility]. Patient explains she wants to see someone who specializes in severe anxiety. toll test desk worker searches the in-network provider database on the [facility] website. toll test desk worker discusses search results for psychiatrists within 15 miles of Patient's zip code and Patient is interested in the following providers: [facility]; [place] [employer]; [facility]; and [facility]. Patient denies interest in [facility] providers. Patient asks director social for resources on mindfulness and meditation near Patient. toll test desk worker advises Patient to call her insurance company and inquire about reimbursement benefits or a stipend for these kinds of services. toll test desk worker and Patient agree to check-in on provided resources late next week. toll test desk worker sends Patient resources via [email or web address] message. [facility] referral placed: No Signature: MICHELA Good, MARIA TERESA Patient Name: Esme Morfin Date: 02/05/2023 Time: 1:37 PM Pager/Contact #: [phone] During this patient contact I spent approximately [...] Date Reviewed: 02/05/2023 Reviewed by: Bipin Nina APRN.[facility] - Fully Assessed Reason for Visit: Ambulatory [...] at bedtim (more content not included)... Normal [facility] ESME [facility]ORFIN ([id number]) 1975 F Date Time Provider Department 01/18/23 [facility] SHELLY HUFF During your visit today, we [...] Fully Assessed Reason for Visit: Appointment Confirmation [0215] Prescriptions as of 01/18/2023 - [facility] ([facility]) [...] (BAQSIMI) 3 mg/actuation nasal spray Use 1 [place] in the nose as needed for low [...] [E88.810] 06/17/2006 Hx of DIABETES IN PREG-UNSPEC [[id number]] 06/17/2006 MALAISE AND FATIGUE NEC [R53.81, R53.83] [...] Pneumonia [J (more content not included)... Normal [facility] Auto Diffon 01-14-2023 Basophils/100 WBC (Bld) 0.6 % Normal 0.0-2.0 [facility] Comment on above: Order Comment: Order Added by Discern Expert. Performed By: #### 1 [id number], 3399862, 3633592, 5287014, 77451546, [id number] #### [facility] [address] [place] [address] Basophils/Leukocytes Auto (Bld) [Pure # fraction] 0.0 E9/L Normal 0.0-0.2 [facility] Comment on above: Order Comment: Order Added by Discern Expert. Performed By: #### 1 8951564, 3077861, 1338988, 4129974, 87981964, [id number] #### [facility] [address] [place] [address] Eosinophils/100 WBC (Bld) 2.0 % Normal 0.0-8.0 [facility] Comment on above: Order Comment: Order Added by Discern Expert. Performed By: #### 1 5798754, 4118469, 9969926, 7569174, 43306117, 24408631 #### [facility] [address] [place] [address] Eosinophils/Leukocytes Auto (Bld) [Pure # fraction] 0.1 E9/L Normal 0.0-0.5 [facility] Comment on above: Order Comment: Order Added by Discern Expert. Performed By: #### 1 6668234, 6664849, 6435615, 9960594, 37291990, 17753876 #### [facility] [address] [place] [address] Lymphocytes/100 WBC (Bld) 24.2 % Normal 14.0-50.0 [facility] Comment on above: Order Comment: Order Added by Discern Expert. Performed By: #### 1 0206028, 2655607, 1690624, 1316434, 46687676, 12631151 #### [facility] [address] [place] [address] Lymphocytes/Leukocytes Auto (Bld) [Pure # fraction] 1.8 E9/L Normal 1.0-4.0 [facility] Comment on above: Order Comment: Order Added by Discern Expert. Performed By: #### 1 3042629, 5320139, 5077247, 5950965, 35982308, 41338587 #### [facility] [address] [place] [address] Monocytes/100 WBC (Bld) 7.4 % Normal 4.0-14.0 [facility] Comment on above: Order Comment: Order Added by Discern Expert. Performed By: #### 1 8452979, 2739644, 7452576, 7387041, 10225738, 14505848 #### [facility] [address] [place] [address] Monocytes/Leukocytes Auto (Bld) [Pure # fraction] 0.5 E9/L Normal 0.2-1.0 [facility] Comment on above: Order Comment: Order Added by Discern Expert. Performed By: #### 1 5264249, 6835554, 4812692, 3953039, 13644105, 13490616 #### [facility] [address] [place] [address] Neutrophils/100 WBC (Bld) 65.8 % Normal 36.0-75.0 [facility] Comment on above: Order Comment: Order Added by Discern Expert. Performed By: #### 1 8878763, 2352649, 4034249, 7469027, 52454171, 27148105 #### [facility] [address] [place] [address] Neutrophils/Leukocytes Auto (Bld) [Pure # fraction] 4.9 E9/L Normal 2.0-7.5 [facility] Comment on above: Order Comment: Order Added by Discern Expert. Performed By: #### 1 6630340, 4015304, 2476608, 2972516, 52118711, 71976005 #### [facility] [address] [place] [address] [facility] 01-14-2023 Creatinine [Mass/Vol] 1.0 mg/dL Normal 0.5-1.3 [facility] Comment on above: Performed By: #### 1 0271072, 1963533, 7099337, 1483680, 41019990, 97441829 #### [facility] [address] [place] [address] Urea nitrogen [Mass/Vol] 8 mg/dL Normal 5-21 [facility] Comment on above: Performed By: #### 1 1474767, 7571991, 5612126, 7714244, 64146801, 21974806 #### [facility] [address] [place] [address] Urea nitrogen/Creatinine [Mass ratio] 8 No Units Low 10-20 [facility] Comment on above: Performed By: #### 1 8656422, 2333411, 9457407, 9744341, 78206743, 83849713 #### [facility] [address] [place] [address] Anion gap [Moles/Vol] 14 mmol/L Normal 6-16 [facility] Comment on above: Performed By: #### 1 1582376, 2639487, 4661716, 1163470, 05049722, 24821448 #### [facility] [address] [place] [address] Calcium [Mass/Vol] 9.3 mg/dL Normal 8.9-11.1 [facility] Comment on above: Performed By: #### 1 3601441, 2174270, 4592531, 9318217, 74297884, 48003002 #### [facility] [address] [place] [address] Chloride [Moles/Vol] 102 mmol/L Normal 101-111 [facility] Comment on above: Performed By: #### 1 5218617, 5637029, 7467134, 6854982, 07977012, 63055631 #### [facility] [address] [place] [address] CO2 [Moles/Vol] 25 mmol/L Normal 21-31 [facility] Comment on above: Performed By: #### 1 6827801, 6135650, 6182423, 9418575, 72598102, 37649645 #### [facility] [address] [place] [address] Glucose [Mass/Vol] 102 mg/dL Normal 55-199 [facility] Comment on above: Result Comment: If t his glucose result represents a fasting glucose, interpretation should refer to the following reference range: 55-99 mg/dL Performed By: #### 1 5674955, 0160514, 9646353, 6141232, 86173545, 71313153 #### [facility] [address] [place] [address] Potassium [Moles/Vol] 3.9 mmol/L Normal 3.5-5.3 [facility] Comment on above: Performed By: #### 1 9262706, 4101987, 1796653, 1407492, 75530838, 05381056 #### [facility] [address] [place] [address] Sodium [Moles/Vol] 137 mmol/L Normal 135-145 [facility] Comment on above: Performed By: #### 1 0358286, 4029604, 2648214, 5385641, 80317434, 11173318 #### [facility] [address] [place], [place] [address] CBC w/ Auto Diffon 3 Erythrocyte distribution width (RBC) [Ratio] 14.1 % Normal 10.9-14.2 [facility] Comment on above: Performed By: #### 1 9438332, 8313556, 9550890, 3181692, 15916814, 89415926 #### [facility] [address] [place] [address] Hematocrit (Bld) [Volume fraction] 44.1 % Normal 34.0-46.0 [facility] Comment on above: Performed By: #### 1 1169960, 5018828, 0409852, 1297315, 19635130, 98987838 #### [facility] [address] [place] [address] Hemoglobin (Bld) [Mass/Vol] 14.5 g/dL Normal 12.0-16.0 [facility] Comment on above: Performed By: #### 1 9271641, 1355336, 1061711, 7550357, 17482919, 29005181 #### [facility] [address] [place] [address] MCH (RBC) [Entitic mass] 28.3 pg Normal 27.0-34.0 [facility] Comment on above: Performed By: #### 1 2179756, 4357687, 3203367, 5152757, 32279169, 60282402 #### [facility] [address] [place] [address] MCHC (RBC) [Mass/Vol] 33.0 g/dL Normal 31.4-36.0 [facility] Comment on above: Performed By: #### 1 0894191, 6149029, 3140002, 5841626, 34210786, 90584013 #### [facility] [address] [place], [place] [address] MCV (RBC) [Entitic vol] 85.8 fL Normal 80.0-100.0 [facility] Comment on above: Performed By: #### 1 6154845, 5153568, 0026820, 9346424, 89365093, 01432706 #### [facility] [address] [place] [address] Platelet mean volume (Bld) [Entitic vol] 8.8 fL Normal 6.4-10.8 [facility] Comment on above: Performed By: #### 1 5512984, 7788178, 0863712, 2302012, 98161213, 95838737 #### [facility] [address] [place] [address] Platelets (Bld) [#/Vol] 256.0 E9/L Normal 150.0-500.0 [facility] Comment on above: Performed By: #### 1 6049488, 4580782, 7223341, 6388998, 29570568, 43701652 #### [facility] [address] [place] [address] RBC (Bld) [#/Vol] 5.1 E12/L Normal 4.3-5.9 [facility] Comment on above: Performed By: #### 1 2297310, 9482243, 2388485, 8084002, 93848245, 27786086 #### [facility] [address] [place] [address] WBC corrected for nucl RBC Auto (Bld) [#/Vol] 7.4 E9/L Normal 4.0-11.0 [facility] Comment on above: Performed By: #### 1 6323079, 1721019, 0390274, 0871922, 66224987, 73516001 #### [facility] [address] [place] [address] CHEMISTRYOrdered By: SYSTEM SYSTEM on 01-14-2023 Troponin [...] 69 mL/min/1.73 m2 Normal >=59mL/min/ 1.73 m2 [facility] Chem S Comment on above: Interpretive Data: [...] Sensitivity Troponin I Instructions For Use, Gianni NeoChord, September 2017) Urea nitrogen [Mass/Vol] 8 mg/dL Normal 5 - 21 mg/dL FT Remisol Urea nitrogen/Creatinine [Mass ratio] 8 mg/mg Low 10 - 20 [facility] Remisol COAGULATIONOrdered By: Ruth Morgan on 01-14-2023 aPTT Coag (PPP) [Time] 30.4 s Normal 25.1 - 36.5 second(s) [facility] Auto Coag Comment on above: Interpretive Data: [...] the same coagulation reagent and instrumentation as [facility]. Currently there are no coagulation studies available worldwide for children to 14 days, and no normal ranges. Heparin therapeutic range (represented by Anti-Factor Xa activity of 0.2 - 0.4 U/mL) corresponds to PTT of 56.6 - 109.0 sec. INR Coag (PPP) [Relative time] 1.0 {INR} Invalid Interpretation Code [facility] Auto Coag Comment on above: Interpretive Data: I NR results are specifically intended to assess patients stabilized on long-term Anticoagulation therapy suggested INR s Less Intensive Anticoagulation 2.0 3.0 Conventional Range 3.0 4.5 PT Coag (PPP) [Time] 10.9 s Normal 9.4 - 1 2.5 second(s) [facility] Auto Coag Comment on above: Interpretive Data: [...] the same coagulation reagent and instrumentation as [facility]. Currently there are no coagulation studies available worldwide for children to 14 days, and no normal ranges. Consent for Treatmenton Consent for Treatment [id number]#[id number] Normal [facility] Discharge Instructionson Discharge Instructions [id number] Normal [facility] ED Clinical Summaryon 2022 ED Clinical Summary (Inserted Image. Lupe ble to display) [address] [address] ED Clinical Summary Person Information Name: ESME MORFIN [place] Age: 47 Years : 1975 Sex: Female Language: Anguillan PCP: Farhat Pineda MD Marital Status: Single Phone: [phone] Visit Id: Visit Reason: Dizziness; Shortness of [...] 01/14/2023 16:00:55 01/14/2023 16:00:55 01/14/2023 16:00:55 ADDRESS: [address] [place] [address] [facility] [phone] [facility] NOTES: MEDICAL INFORMATION: Prescriptions Given: Medications to [...] Follow up: With: Address: When: Farhat Pineda [address] [place] [address], [address] [place] [phone] Business (1) In 3 days 01/17/2023 DIAGNOSIS: Chest pain Normal [facility] ED Note-Physicianon 01-15-20 ED Note-Physician Basic [...] Pineda In 3 days 01/17/2023 EST [address] [place] [address]- Business (1) Additional Instructions: Patient Education Nonspecific Chest Pain, Adult Attestation Patient seen and evaluated by the physician medical library assistant. Attending physician was present in the emergency department and supervised care. This visit was performed by both the physician and an APC. I performed all aspects of the MDM as documented. This report was transcribed using voice recognition software. Every effort was made to ensure accuracy, however, inadvertently computerized die mechanic mistakes may be present. 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 Medications Inpatient No active inpatient medications Lee (more content not included)... Normal [facility] Comment on above: Result Comment: Elec [...] these instructions at home: Medicines ? Take iphm-led-mlxbnzv and prescription medicines only as told by [...] by your (more content not included)... Normal [facility] ED Patient Summaryon 023 ED Patient Summary (Inserted Image. Lupe ble to display) [address] [address] Patient Discharge Instructions Person Information Name: ESME MORFIN Age: 47 Years Arrival Date: 01/14/2023 10:43:09 Discharge Diagnosis: Chest pain Primary Care Physician: Farhat Pineda MD Provider Information Primary Provider: Ladarius Mack DO Advanced Plastic Technician:Dillon Desai PA-C The exam and treatment you received in the Emergency Department were for an urgent problem and are not intended as complete care. It is important that you follow up with a doctor, nurse practitioner, or physician?s medical library assistant for ongoing care. If your symptoms [...] Follow-up Instructions: With: Address: When: Farhat Edwin [address] [place] [address], [address] [place] [phone] Business (1) In 3 days 01/17/2023 In the event that this physician does not participate in your insurance network, please consult with your insurance company to find a nearby participating provider. Patient Education Materials: Nonspecific Chest Pain, Adult A MESSAGE TO ALL PATIENTS REGARDING OPIOIDS PRESCRIPTION OPIOIDS: WHAT YOU NEED TO KNOW Prescription opioids can be used to help relieve bmbzbxpg-rd-mncutp pain and are often prescribed following a [...] be struggling with addiction, tell your health day care home mother and ask for guidance or call [employer]?S National Helpline at 5-891-040-HELP. v Source: U (more content not included)... Normal [facility] HEMATOLOGYOrdered By: SYSTEM SYSTEM on 01-14-2023 [...] 8.8 fL Normal 6.4 - 10.8 fL [facility] HemeAutoSS Platelets (Bld) [#/Vol] 256.0 E9/L Normal 150.0 - 500.0 E9/L [facility] HemeAutoSS RBC (Bld) [#/Vol] 5.1 E12/L Normal 4.3 - 5.9 E12/L [facility] HemeAutoSS WBC corrected for nucl RBC Auto (Bld) [#/Vol] 7.4 E9/L Normal 4.0 - 11.0 E9/L [facility] HemeAutoSS Monitor Recordon 01-14-2023 Monitor Record [id number] Normal [facility] PT & PTTon 01-14-2023 aPTT Coag (PPP) [Time] 30.4 second(s) Normal 25.1-36.5 [facility] Comment on above: Result Comment: Para [...] the same coagulation reagent and instrumentation as [facility]. Currently there are no coagulation studies available worldwide for children to 14 days, and no normal ranges. Heparin therapeutic range (represented by Anti-Factor Xa activity of 0.2 - 0.4 U/mL) corresponds to PTT of 56.6 - 109.0 sec. Performed By: #### 1 6563846, 1859679, 2345405, 3359411, 06135773, 94226485 #### [facility] [address] [place] [address] INR Coag (PPP) [Relative time] 1.0 {INR} Invalid Interpretation Code [facility] Comment on above: Result Comment: INR results are specifically intended to assess patients stabilized on long-term Anticoagulation therapy suggested INR?s ?Less Intensive Anticoagulation? 2.0 ? 3.0 Conventional Range 3.0 ? 4.5 Performed By: #### 1 7850881, 3884666, 8898041, 5068202, 19596190, 44063142 #### [facility] [address] [place] [address] PT Coag (PPP) [Time] 10.9 second(s) Normal 9.4-12.5 [facility] Comment on above: Result Comment: 15 [...] the same coagulation reagent and instrumentation as [facility]. Currently there are no coagulation studies available worldwide for children to 14 days, and no normal ranges. Performed By: #### 1 5204859, 5697483, 0176169, 2015126, 34224725, 22475017 #### [facility] [address] [place] [address] Troponin 0 Hr.on 01-14-2023 Troponin I.cardiac [Mass/Vol] 5.70 pg/mL Low 10.10-27.10 [facility] [facility] Comment on above: Result Comment: The 95% CI (Confidence Interval) PPV (Positive Predictive Value) for myocardial infarction in females is 38 pg/mL, in males 51 pg/mL. The results should be used in conjunction with clinical conditions of myocardial infarction. (Access High Sensitivity Troponin I Instructions For Use, Gianni [place], September 2017) Performed By: #### 1 [id number], [id number], [id number], [id number], [id number], [id number] #### [facility] [address] [place] [address] Troponin 3 Hr.on 01-14-2023 Troponin I.cardiac [Mass/Vol] 3.80 pg/mL Low 10.10-27.10 [facility] Comment on above: Result Comment: The 95% CI (Confidence Interval) PPV (Positive Predictive Value) for myocardial infarction in females is 38 pg/mL, in males 51 pg/mL. The results should be used in conjunction with clinical conditions of myocardial infarction. (Access High Sensitivity Troponin I Instructions For Use, Gianni [place], September 2017) Performed By: #### 1 [id number], [id number], [id number], [id number], [id number], [id number] #### [facility] [address] [place] [address] XR Chest Single Viewon 01-14 XR Chest [...] mGy = na DAP = na Normal [facility] eGFRon 01-14-2023 GFR/1.73 sq M.predicted among non-blacks MDRD (S/P/Bld) [Vol rate/Area] 69 mL/min/1.73 m2 Normal >=59 [facility] Comment on above: Order Comment: Order added by Discern Expert. Result Comment: Senior Geologist mikey kidney disease could be indicated at eGFR's of less than 60 mL/min/1.73m2. Kidney failure is indicated at less than 15 mL/min/1.73m2. Performed By: #### 1 [id number], [id number], [id number], [id number], [id number] #### [facility] [address] [place] [address] Zoey 01-13-2023 FRANKN Telephone (PALORA) -- ESME MORFIN ([id number]) 1975 F Date Time Provider Department 01/13/[address] During your visit today, we recorded the following information about you: Mimi Gonzales LPN 01/13/2023 10:34 AM Signed Patient not [...] (BAQSIMI) 3 mg/actuation nasal spray Use 1 [place] in the nose as needed for low [...] [E88.810] 06/17/2006 Hx of DIABETES IN PREG-UNSPEC [[id number]] 06/17/2006 MALAISE AND FATIGUE NEC [R53.81, R53.83] [...] aortic leola (more content not included)... Normal [facility] HISTORY PHYSICALon HISTORY PHYSICAL HNO ID: [id number] Author: Gloria Malone APRN.[employer] Service: ? Author Type: Nurse Practitioner Type: HANDP Filed: 01/15/2023 10:11 AM Note Text: Normal [facility] Alanine aminotransferase [En zymatic activity/volume] in Serum or PlasmaOrdered By: Bipin Roth on 01-09-2023 ALT [Catalytic activity/Vol] 37 U/L 7-52 [facility] Albumin [Mass/volume] in Ser um or Plasma by Bromocresol green (BCG) dye binding methoOrdered By: Bipin Roth on 01-09-2023 Albumin BCG dye [Mass/Vol] 4.5 g/dL 3.5-5.7 [facility] Alkaline phosphatase [Enzyma tic activity/volume] in Serum or PlasmaOrdered By: Bipin Roth on 01-09-2023 ALP [Catalytic activity/Vol] 179 U/L 34-104 [facility] Amphetamine Screen Ql (U)Ord ered By: Bipin Roth on 01-09-2023 Amphetamines Ql (U) Negative Negative [facility] Aspartate aminotransferase [ Enzymatic activity/volume] in Serum or PlasmaOrdered By: Bipin Roth on 01-09-2023 AST [Catalytic activity/Vol] 35 U/L 13-39 [facility] Automated erythrocytes count in urine sediment (number/area)Ordered By: Bipin Roth on 01-09-2023 RBC Auto (Urine sed) [#/Area] 5-9 [HPF] 0-4 [facility] Automated leukocytes count i n urine sediment (number/area)Ordered By: Bipin Roth on 01-09-2023 WBC Auto (Urine sed) [#/Area] 3-4 [HPF] 0-4 [facility] Automated urine hyaline cast s count (number/volume)Ordered By: Bipin Roth on 01-09-2023 Hyaline casts Auto (U) [#/Vol] 3-4 [LPF] 0-1 [facility] Barbiturates [Presence] in U rine by Screen methodOrdered By: Bipin Roth on 01-09-2023 Barbiturates Screen Ql (U) Negative Negative [facility] Basophils Auto (Bld) [#/Vol] Ordered By: Bipin Roth on 01-09-2023 Basophils (Bld) [#/Vol] 0.0 10*3/uL 0.0-0.2 [facility] Basophils/100 WBC Auto (Bld) Ordered By: Bipin Roth on 01-09-2023 Basophils/100 WBC (Bld) 0.4 % . [facility] Benzodiazepines Screen Ql (U )Ordered By: Bipin Roth on 01-09-2023 Benzodiazepines Ql (U) Positive Negative Fi [facility] Benzoylecgonine [Presence] i n Urine by Screen methodOrdered By: Bipin Roth on 01-09-2023 Benzoylecgonine Screen Ql (U) Negative Negative [facility] Bilirubin Test strip Ql (U)O rdered By: Bipin Roth on 01-09-2023 Bilirubin Ql (U) Negative Negative [facility] Bilirubin.total [Mass/volume ] in Serum or PlasmaOrdered By: Bipin Roth on 01-09-2023 Bilirubin [Mass/Vol] 0.6 mg/dL 0.3-1.0 [facility] Calcium [Mass/volume] in Ser um or PlasmaOrdered By: Bipin Roth on 01-09-2023 Calcium [Mass/Vol] 9.2 mg/dL 8.6-10.3 [facility] Cannabinoids [Presence] in U rine by Screen methodOrdered By: Bipin Roth on 01-09-2023 Cannabinoids Screen Ql (U) Negative Negative [facility] Comment on above: These are unconfirme d results and should not be used for legal purposes. Drug Cut-Off Concentration: AMPH 1000 ng/mL LIYA 200 ng/mL HAILEY 200 ng/mL COCM 300 ng/mL OP 300 ng/mL PCP 25 ng/mL THC 20 ng/mL Carbon dioxide, total [Moles /volume] in Serum or PlasmaOrdered By: Bipin Roth on 01-09-2023 CO2 [Moles/Vol] 22.4 mmol/L 21.0-31.0 [facility] Casts typing in urine sedime nt by light microscopyOrdered By: Bipin Roth on 01-09-2023 Casts LM Nom (Urine sed) None seen [LPF] None Seen [facility] Chloride [Moles/volume] in S jemal or PlasmaOrdered By: Bipin Gonzalez on 01-09-2023 Chloride [Moles/Vol] 105 mmol/L 98-107 [facility] Color Auto (U)Ordered By: Tamika ng Gonzalez on 01-09-2023 Color (U) Yellow Yellow [facility] Complete Blood Count Auto Di ffon 01-09-2023 Basophils (Bld) [#/Vol] 0.0 10*3/uL Normal 0.0-0.2 [facility] Comment on above: Result Comment: PERF ORMED BY: [place] [address] PATHOLOGIST [employer] PROFESSOR NETO FLORENTINO M.D. Performed By: #### U EVELYNE UA, [facility] #### [address] Basophils/100 WBC (Bld) 0.4 % Normal . [facility] Comment on above: Performed By: #### U EV[facility]NE UA, [facility] #### [address] Eosinophils (Bld) [#/Vol] 0.2 10*3/uL Normal 0.0-0.45 [facility] Comment on above: Performed By: #### U EVELYNE UA, [facility] #### [address] Eosinophils/100 WBC (Bld) 2.0 % Normal . [facility] Comment on above: Performed By: #### U RDS UA, CG #### [address] Erythrocyte distribution width (RBC) [Ratio] 13.8 % Normal 11.9-15.3 [facility] Comment on above: Performed By: #### U RDS, UA, CG #### [address] Hematocrit (Bld) [Volume fraction] 42.6 % Normal 34.0-46.4 [facility] Comment on above: Performed By: #### U RDS, UA, UHCG #### [address] Hemoglobin (Bld) [Mass/Vol] 14.2 g/dL Normal 11.8-15.4 [facility] Comment on above: Performed By: #### U RDS, UA, UHCG #### [address] Lymphocytes (Bld) [#/Vol] 2.8 10*3/uL Normal 1.00-4.8 [facility] Comment on above: Performed By: #### U RDS, UA, UHCG #### [address] Lymphocytes/100 WBC (Bld) 31.6 % Normal . [facility] Comment on above: Performed By: #### U RDS, UA, UHCG #### [address] MCH (RBC) [Entitic mass] 28.4 pg Normal 24.7-34.3 [facility] Comment on above: Performed By: #### U RDS, UA, UHCG #### [address] MCV (RBC) [Entitic vol] 85.0 fL Normal 80-100 [facility] Comment on above: Performed By: #### U RDS, UA, UHCG #### [address] Mean Corpuscular HGB Conc 33.4 g/dL Normal 32.0-35.0 [facility] Comment on above: Performed By: #### U RDS, UA, UHCG #### [place] [address] [place] Monocytes (Bld) [#/Vol] 0.6 10*3/uL Normal 0.0-0.8 [facility] Comment on above: Performed By: #### U RDS, UA, UHCG #### [place] [address] [place] Monocytes/100 WBC (Bld) 17.26 % Normal 0.00-20.00 [facility] Comment on above: Performed By: #### U RDS, UA, UHCG #### [facility] [address] Monocytes/100 WBC (Bld) 7.2 % Normal . [facility] Comment on above: Performed By: #### U RDS, UA, UHCG #### [facility] [address] Neutrophils (Bld) [#/Vol] 5.2 10*3/uL Normal 1.8-7.7 [facility] Comment on above: Performed By: #### U RDS, UA, UHCG #### [address] Neutrophils/100 WBC (Bld) 58.8 % Normal . [facility] Comment on above: Performed By: #### U RDS, UA, UHCG #### [address] NRBC% 0.1 /100{WBC} Normal 0-0.5 [facility] Comment on above: Performed By: #### U RDS, UA, UHCG #### [address] Platelet mean volume (Bld) [Entitic vol] 9.1 fL Normal 6.3-10.7 [facility] Comment on above: Performed By: #### U RDS, UA, UHCG #### [place] [address] [place] Platelets (Bld) [#/Vol] 272 10*3/uL Normal 150-450 [facility] Comment on above: Performed By: #### U RDS, UA, UHCG #### [place] [address] [place] RBC (Bld) [#/Vol] 5.02 10*6/uL High 3.60-5.00 [facility] Comment on above: Performed By: #### U RDS, UA, UHCG #### [address] WBC (Bld) [#/Vol] 8.8 10*3/uL Normal 3.8-11.6 [facility] Comment on above: Performed By: #### U RDS, UA, UHCG #### [address] Comprehensive Metabolic Pane christiano 01-09-2023 Albumin [Mass/Vol] 4.5 g/dL Normal 3.5-5.7 [facility] Comment on above: Performed By: #### U RDS, UA, UHCG #### [address] Albumin/Globulin [Mass ratio] 1.4 {ratio} Normal [facility] Comment on above: Performed By: #### U RDS, UA, UHCG #### [address] ALP [Catalytic activity/Vol] 179 U/L High 34-104 [facility] Comment on above: Performed By: #### U RDS, UA, UHCG #### [address] ALT [Catalytic activity/Vol] 37 U/L Normal 7-52 [facility] Comment on above: Performed By: #### U RDS, UA, UHCG #### [address] Anion gap [Moles/Vol] 16.4 mmol/L High 6.0-15.0 [facility] Comment on above: Performed By: #### U RDS, UA, UHCG #### [address] AST [Catalytic activity/Vol] 35 U/L Normal 13-39 [facility] Comment on above: Performed By: #### U RDS, UA, UHCG #### [address] Bilirubin [Mass/Vol] 0.6 mg/dL Normal 0.3-1.0 [facility] Comment on above: Performed By: #### U RDS, UA, UHCG #### [address] Calcium [Mass/Vol] 9.2 mg/dL Normal 8.6-10.3 [facility] Comment on above: Performed By: #### U RDS, UA, UHCG #### [address] Chloride [Moles/Vol] 105 mmol/L Normal 98-107 [facility] Comment on above: Performed By: #### U RDS, UA, UHCG #### [address] CO2 [Moles/Vol] 22.4 mmol/L Normal 21.0-31.0 [facility] Comment on above: Performed By: #### U RDS, UA, UHCG #### [address] Creatinine [Mass/Vol] 1.02 mg/dL Normal 0.60-1.20 [facility] Comment on above: Performed By: #### U RDS, UA, UHCG #### [address] Creatinine Clr Calc Pharmacy 71.79 Normal [facility] Comment on above: Result Comment: PERF ORMED BY: [place] [address] PATHOLOGIST [employer] PROFESSOR NETO FLORENTINO M.D. Performed By: #### U RDS, UA, UHCG #### [address] GFR/1.73 sq M.predicted MDRD (S/P/Bld) [Vol rate/Area] mL/min/{1.73_m2} Normal [facility] Comment on above: Performed By: #### U RDS, UA, UHCG #### [address] Globulin (S) [Mass/Vol] 3.3 g/dL Normal [facility] Comment on above: Performed By: #### U RDS, UA, UHCG #### [address] Glucose [Mass/Vol] 112 mg/dL High 70-100 [facility] Comment on above: Result Comment: [place] Glucose Reference Range is dependent on time and content of last meal. Glucose of more than 200 mg/dL in a nonstressed, ambulatory subject supports the diagnosis of Diabetes Mellitus. ADA recommended reference range Performed By: #### U RDS, UA, UHCG #### [address] Potassium [Moles/Vol] 3.8 mmol/L Normal 3.5-5.1 [facility] Comment on above: Performed By: #### U RDS, UA, UHCG #### [address] Protein [Mass/Vol] 7.8 g/dL Normal 6.4-8.9 [facility] Comment on above: Performed By: #### U RDS, UA, UHCG #### [address] Sodium [Moles/Vol] 140 mmol/L Normal 136-145 [facility] Comment on above: Performed By: #### U RDS, UA, UHCG #### [address] Urea nitrogen [Mass/Vol] 11 mg/dL Normal 7-25 [facility] Comment on above: Performed By: #### U RDS, UA, UHCG #### [address] Creatinine [Mass/volume] in Serum or PlasmaOrdered By: Bipin Roth on 01-09-2023 Creatinine [Mass/Vol] 1.02 mg/dL 0.60-1.20 [facility] Dipstick and Microscopicon 1 03-12-2022 Appearance (U) Cloudy Critically abnormal Clear [facility] Comment on above: Order Comment: Name Collection Type:: Clean-Voided Midstream Performed By: #### U RDS, ADDONUAPLUS #### [place] [address] [place] Bacteria,Urine 1+ High None Seen [facility] Comment on above: Order Comment: Name Collection Type:: Clean-Voided Midstream Performed By: #### U RDS, ADDONUAPLUS #### [facility] [address] [place] [address] [place] Bilirubin,Urine Negative Normal Negative [facility] Comment on above: Order Comment: Name Collection Type:: Clean-Voided Midstream Performed By: #### U RDS, ADDONUAPLUS #### [facility] [address] [place] [address] [place] Color (U) Yellow Normal Yellow [facility] Comment on above: Order Comment: Name Collection Type:: Clean-Voided Midstream Performed By: #### U RDS, ADDONUAPLUS #### [place] [address] [place] Glucose Ql (U) Normal Normal Normal [facility] Comment on above: Order Comment: Name Collection Type:: Clean-Voided Midstream Performed By: #### U RDS, ADDONUAPLUS #### [facility] [address] [place] [address] [place] Hyaline Casts,Urine 3-4 High 0-1 [facility] Comment on above: Order Comment: Name Collection Type:: Clean-Voided Midstream Performed By: #### U RDS, ADDONUAPLUS #### [facility] [address] [place] [address] [place] Ketones Ql (U) Trace High Negative [facility] Comment on above: Order Comment: Name Collection Type:: Clean-Voided Midstream Performed By: #### U RDS, ADDONUAPLUS #### [facility] [address] [place] [address] [place] Leukocyte esterase Test strip Ql (U) Negative Normal Negative [facility] Comment on above: Order Comment: Name Collection Type:: Clean-Voided Midstream Performed By: #### U RDS, ADDONUAPLUS #### [facility] [address] [place] [address] [place] Nitrite,Urine Negative Normal Negative [facility] Comment on above: Order Comment: Name Collection Type:: Clean-Voided Midstream Performed By: #### U RDS, ADDONUAPLUS #### [place] [address] [place] Occult Blood,Urine Trace High Negative [facility] Comment on above: Order Comment: Name Collection Type:: Clean-Voided Midstream Result Comment: PERF ORMED BY: [place] [address] PATHOLOGIST [employer] PROFESSOR NETO FLORENTINO M.D. Performed By: #### U RDS, ADDONUAPLUS #### [address] Other Casts,Urine None Seen Normal None Seen [facility] Comment on above: Order Comment: Name Collection Type:: Clean-Voided Midstream Result Comment: PERF ORMED BY: [place] [address] PATHOLOGIST [employer] PROFESSOR NETO FLORENTINO M.D. Performed By: #### U RDS, ADDONUAPLUS #### [address] pH (U) 6.0 [pH] Normal 5.0-9.0 [facility] Comment on above: Order Comment: Name Collection Type:: Clean-Voided Midstream Performed By: #### U RDS, ADDONUAPLUS #### [place] [address] [place] Protein,Urine Trace High Negative [facility] Comment on above: Order Comment: Name Collection Type:: Clean-Voided Midstream Performed By: #### U RDS, ADDONUAPLUS #### [place] [address] [place] RBC,Urine 5-9 High 0-4 [facility] Comment on above: Order Comment: Name Collection Type:: Clean-Voided Midstream Performed By: #### U RDS, ADDONUAPLUS #### [place] [address] [place] Specificy [place]rot[place],Urine 1.020 Normal 1.001-1.030 [facility] Comment on above: Order Comment: Name Collection Type:: Clean-Voided Midstream Performed By: #### U RDS, ADDONUAPLUS #### [address] Squamous Epithelial Cell,Urine 10-19 High 0-2 [facility] Comment on above: Order Comment: Name Collection Type:: Clean-Voided Midstream Performed By: #### U RDS, ADDONUAPLUS #### [address] Urobilinogen,Urine >=2 High Normal [facility] Comment on above: Order Comment: Name Collection Type:: Clean-Voided Midstream Performed By: #### U RDS, ADDONUAPLUS #### [address] WBC,Urine 3-4 Normal 0-4 [facility] Comment on above: Order Comment: Name Collection Type:: Clean-Voided Midstream Performed By: #### U RDS, ADDONUAPLUS #### [address] Drug Screen,Urineon 01-10-20 23 Amphetamine Screen,Urine Negative Normal Negative [facility] Comment on above: Performed By: #### U RDS, ADDONUAPLUS #### [address] Barbiturate Screen,Urine Negative Normal Negative [facility] Comment on above: Performed By: #### U RDS, ADDONUAPLUS #### [address] Benzodiazepines Screen,Urine Positive High Negative [facility] Comment on above: Performed By: #### U RDS, ADDONUAPLUS #### [address] Cannabinoid Screen,Urine Negative Normal Negative [facility] Comment on above: Result Comment: Thes e are unconfirmed results and should not be used for legal purposes. Drug Cut-Off Concentration: AMPH 1000 ng/mL LIYA 200 ng/mL HAILEY 200 ng/mL COCM 300 ng/mL OP 300 ng/mL PCP 25 ng/mL THC 20 ng/mL PERFORMED BY: [address] [place] [address] PATHOLOGIST [employer] PROFESSOR NETO FLORENTINO M.D. Performed By: #### U RDS, ADDONUAPLUS #### [address] Cocaine Screen,Urine Negative Normal Negative [facility] Comment on above: Performed By: #### U RDS, ADDONUAPLUS #### [address] Opiate Screen,Urine Negative Normal Negative [facility] Comment on above: Performed By: #### U RDS, ADDONUAPLUS #### [address] Phencyclidine Screen,Urine Negative Normal Negative [facility] Comment on above: Performed By: #### U RDS, ADDONUAPLUS #### [address] ECG 12 lead ECGon 01-09-2023 ECG 12 lead ECG [facility] [place] [place] [address] Electrocardiograph Report Signed Patient: Esme Morfin MR#: [id number] 34 : 1975 Acct:[id number] Age/Sex: 47 / F ADM Date: 01/09/23 Loc: ER Room: Type: [facility] ER Attending Dr: Ordering Provider: Bipin Roth [...] Marcus MD 12/0 2/23 1540 Normal [facility] Eosinophils Auto (Bld) [#/Vo l]Ordered By: Bipin Roth on 01-09-2023 Eosinophils (Bld) [#/Vol] 0.2 10*3/uL 0.0-0.45 [facility] Eosinophils/100 WBC Auto (Bl d)Ordered By: Bipin Roth on 01-09-2023 Eosinophils/100 WBC (Bld) 2.0 % . [facility] Erythrocyte distribution wid th Auto (RBC) [Ratio]Ordered By: Bipin Roth on 01-09-2023 Erythrocyte distribution width (RBC) [Ratio] 13.8 % 11.9-15.3 [facility] Ethanol [Mass/volume] in Ser um or PlasmaOrdered By: Biipn Roth on 01-09-2023 Ethanol [Mass/Vol] mg/dL [facility] Ethanol [Mass/Vol] TNP [facility] Comment on above: Test not performed Ethyl Alcohol Profileon Ethanol [Mass/Vol] mg/dL Normal [facility] Comment on above: Performed By: #### U RDS, UA, [facility] #### [facility] [address] [place] [address] Percent Ethanol Not performed Normal [facility] Comment on above: Result Comment: PERF ORMED BY: [place] [address] PATHOLOGIST [employer] PROFESSOR NETO FLORENTINO M.D. Performed By: #### U RDS, , [facility] #### [facility] [address] [place] [address] Globulin Calc (S) [Mass/Vol] Ordered By: Bipin Roth on 01-09-2023 Globulin (S) [Mass/Vol] 3.3 g/dL [facility] Glucose [Mass/volume] in Ser um or PlasmaOrdered By: Bipin Roth on 01-09-2023 Glucose [Mass/Vol] 112 mg/dL 70-100 [facility] Comment on above: ADA recommended refe rence rangeRandom Glucose Reference Range is dependent on time and content of last meal. Glucose of more than 200 mg/dL in a nonstressed, ambulatory subject supports the diagnosis of Diabetes Mellitus. Hematocrit Auto (Bld) [Volum e fraction]Ordered By: Bipin Roth on 01-09-2023 Hematocrit (Bld) [Volume fraction] 42.6 % 34.0-46.4 [facility] Hemoglobin [Mass/volume] in BloodOrdered By: Bipin Roth on 01-09-2023 Hemoglobin (Bld) [Mass/Vol] 14.2 g/dL 11.8-15.4 [facility] Ketones Auto test strip (U) [Mass/Vol]Ordered By: Bipin Roth on 01-09-2023 Ketones (U) [Mass/Vol] Trace Negative Fi [facility] Leukocytes [#/volume] correc imtiaz for nucleated erythrocytes in Blood by Automated counOrdered By: Bipin Roth on 01-09-2023 WBC corrected for nucl RBC Auto (Bld) [#/Vol] 8.8 10*3/uL 3.8-11.6 [facility] Lymphocytes Auto (Bld) [#/Vo l]Ordered By: Bipin Roth on 01-09-2023 Lymphocytes (Bld) [#/Vol] 2.8 10*3/uL 1.00-4.8 [facility] Lymphocytes/100 WBC Auto (Bl d)Ordered By: Bipin Roth on 01-09-2023 Lymphocytes/100 WBC (Bld) 31.6 % . [facility] MCH Auto (RBC) [Entitic mass ]Ordered By: Bipin Roth on 01-09-2023 MCH (RBC) [Entitic mass] 28.4 pg 24.7-34.3 [facility] MCHC Auto (RBC) [Mass/Vol]Or dered By: Bipin Roth on 01-09-2023 MCHC (RBC) [Mass/Vol] 33.4 g/dL 32.0-35.0 [facility] MCV Auto (RBC) [Entitic vol] Ordered By: Bipin Roth on 01-09-2023 MCV (RBC) [Entitic vol] 85.0 fL 80-100 [facility] Monocyte distribution width [Entitic volume] in Blood by AutomatedOrdered By: Bipin Roth on 01-09-2023 Monocyte distribution width Auto (Bld) [Entitic vol] 17.26 % 0.00-20.00 [facility] Monocytes Auto (Bld) [#/Vol] Ordered By: Bipin Roth on 01-09-2023 Monocytes (Bld) [#/Vol] 0.6 10*3/uL 0.0-0.8 [facility] Monocytes/100 WBC Auto (Bld) Ordered By: Bipin Roth on 01-09-2023 Monocytes/100 WBC (Bld) 7.2 % . [facility] Neutrophils Auto (Bld) [#/Vo l]Ordered By: Bipin Roth on 01-09-2023 Neutrophils (Bld) [#/Vol] 5.2 10*3/uL 1.8-7.7 [facility] Neutrophils/100 WBC Auto (Bl d)Ordered By: Bipin oRth on 01-09-2023 Neutrophils/100 WBC (Bld) 58.8 % . [facility] Nitrite Test strip Ql (U)Ord ered By: Bipin Roth on 01-09-2023 Nitrite Ql (U) Negative Negative [facility] No Panel InformationOrdered By: Bipin Roth on 01-09-2023 Estimated GFR (CKD-EPI) > 60.0 mL/Min [facility] Creatinine Clearance (Chem 71.79 [facility] Nucleated erythrocytes [Pres ence] in Blood by Automated countOrdered By: Bipin Roth on 01-09-2023 Nucleated RBC Auto Ql (Bld) 0.1 /100{WBC} 0-0.5 [facility] Opiates [Presence] in Urine by Screen methodOrdered By: Bipin Roth on 01-09-2023 Opiates Screen Ql (U) Negative Negative [facility] Phencyclidine Screen Ql (U)O rdered By: Bipin Roth on 01-09-2023 Phencyclidine Ql (U) Negative Negative [facility] Platelet mean volume Auto (B ld) [Entitic vol]Ordered By: Bipin Roth on 01-09-2023 Platelet mean volume (Bld) [Entitic vol] 9.1 fL 6.3-10.7 [facility] Platelets Auto (Bld) [#/Vol] Ordered By: Bipin Roth on 01-09-2023 Platelets (Bld) [#/Vol] 272 10*3/uL 150-450 [facility] Potassium [Moles/volume] in Serum or PlasmaOrdered By: Bipin Roth on 01-09-2023 Potassium [Moles/Vol] 3.8 mmol/L 3.5-5.1 [facility] Protein Auto test strip (U) [Mass/Vol]Ordered By: Bipin Roth on 01-09-2023 Protein (U) [Mass/Vol] Trace mg/dL Negative F [facility] Protein [Mass/volume] in Ser um or PlasmaOrdered By: Bipin Roth on 01-09-2023 Protein [Mass/Vol] 7.8 g/dL 6.4-8.9 [facility] RBC Auto (Bld) [#/Vol]Ordere d By: Bipin Roth on 01-09-2023 RBC (Bld) [#/Vol] 5.02 10*6/uL 3.60-5.00 [facility] Serum or plasma albumin/glob ulin mass ratioOrdered By: Bipin Roth on 01-09-2023 Albumin/Globulin [Mass ratio] 1.4 {ratio} [facility] Serum or plasma anion gap de terminationOrdered By: Bipin Roth on 01-09-2023 Anion gap [Moles/Vol] 16.4 mmol/L 6.0-15.0 [facility] Sodium [Moles/volume] in Ser um or PlasmaOrdered By: Bipin Roth on 01-09-2023 Sodium [Moles/Vol] 140 mmol/L 136-145 [facility] Specific gravity Auto test s trip (U) [Rel density]Ordered By: Bipin Roth on 01-09-2023 Specific gravity (U) [Rel density] 1.020 1.001-1.030 [facility] Squamous epithelial cells de tection in urine sediment by light microscopyOrdered By: Bipin Roth on 01-09-2023 Epithelial cells.squamous LM Ql (Urine sed) 10-19 [HPF] 0-2 [facility] Urea nitrogen [Mass/volume] in Serum or PlasmaOrdered By: Bipin Roth on 01-09-2023 Urea nitrogen [Mass/Vol] 11 mg/dL 7-25 [facility] Urine bacteria detection by automated methodOrdered By: Bipin Roth on 01-09-2023 Bacteria Auto Ql (U) 1+ None Seen [facility] Urine clarity by refractomet ry automatedOrdered By: Bipin Roth on 01-09-2023 Clarity Refractometry automated (U) Cloudy Clear [facility] Urine glucose measurement by automated test strip (mass/volume)Ordered By: Bipin Roth on 01-09-2023 Glucose Auto test strip (U) [Mass/Vol] Normal mg/dL Normal [facility] Urine hemoglobin detection b y automated test stripOrdered By: Bipin Roth on 01-09-2023 Hemoglobin Auto test strip Ql (U) Trace Negative [facility] Urine leukocyte esterase det ection by automated test stripOrdered By: Bipin Roth on 01-09-2023 Leukocyte esterase Auto test strip Ql (U) Negative Negative [facility] Urobilinogen Auto test strip (U) [Mass/Vol]Ordered By: Bipin Roth on 01-09-2023 Urobilinogen (U) [Mass/Vol] mg/dL Normal [facility] WBC Auto (Bld) [#/Vol]Ordere d By: Bipin Roth on 01-09-2023 WBC (Bld) [#/Vol] 8.8 10*3/uL 3.8-11.6 [facility] pH Auto test strip (U)Ordere d By: Bipin Roth on 01-09-2023 pH (U) 6.0 [pH] 5.0-9.0 [facility] CNOVon 01-05-2023 CNOV Office Visit (OBGYCC ) -- ESME MORFIN ([id number]) 1975 F Date Time Provider Department 01/05/23 [...] TOTAL/COMPLETE 02-04-2010 ? patial/incomplete Review of Systems: PUBLIC INFORMATION RELATIONS MANAGER: SEE HPI The remainder of the review [...] histological diagn (more content not included)... Normal [facility] ANES POSTPROC EVALon 023 ANES POSTPROC EVAL HNO ID: [id number] Author: Alvin Duque MD Service: Anesthesiology Author [...] December 30, 2022 TIME: 10:01 AM CSN: [id number] [facility] ANES PRE-OPon 12-30-2022 ANES PRE-OP HNO ID: [id number] Author: Alvin Duque MD Service: Anesthesiology Author [...] and consent discussed: yes. Patient / Responsible [employer] Party agrees to proceed: yes Patient / Surrogate [...] (BAQSIMI) 3 mg/actuation nasal spray Use 1 [place] in the nose as needed for low [...] as need (more content not included)... Normal [facility] HISTORY PHYSICALon HISTORY PHYSICAL HNO ID: [id number] Author: Eleanor Kenny DO Service: Obstetrics Author [...] DATE: December 30, 2022 TIME: 7:38 AM [facility] NURSING PROGon 12-30-2022 NURSING PROG HNO ID: [id number] Author: Jocelyne Horta, JAKY Service: Nursing Author [...] (RECOMMENDATION): None Electronically Signed By: Jocelyne Horta [facility] NURSING PROG HNO ID: [id number] Author: Melanie Prieto, RN Service: Nursing Author [...] (RECOMMENDATION): None Electronically Signed By: Melanie Prieto [facility] OPERATIVE NOon 12-30-2022 OPERATIVE NO HNO ID: [id number] Author: Eleanor Kenny DO Service: Gynecology Author Type: Physician Type: Operative Report Filed: 12/30/2022 8:13 AM Note Text: NAME: Esme Morfin MR#: [id number] DATE: 12/30/2022 SURGEON 1: Eleanor Kenny D.O. (I/primary surgeon/proceduralist performed the procedure with no assistance. No qualified resident/fellow was available. CHORUS DANCER 1: None. OPERATION: Endometrial biopsy. ANESTHESIA: MAC [...] START/STOP TIME: 07:56 and 08:01 AM. Normal [facility] SURGICAL PATHOLOGYon 023 CASE REPORT Normal [facility] Comment on above: Order Comment: Speci men Type: TISSUE SPECIMEN Ordering Facility: [facility] Address: [address] [place] [address] Result Comment: Surg [facility] Pathology Report Case: [id number] Authorizing Provider: Eleanor Kenny DO Collected: 12/30/2022 08:01 AM Ordering Location: [facility] Received: 12/30/2022 09:45 AM Operating Room Pathologist: Lacy Willoughby MD Specimen: ENDOMETRIUM BIOPSY Performed By: #### S #### [facility] CLIA [id number] [address] [facility] [place] [place] [address] [place] CLINICAL HISTORY Normal [facility] Comment on above: Order Comment: Speci men Type: TISSUE SPECIMEN Ordering Facility: [facility] Address: [address] [place] [address] Result Comment: Pre- op diagnosis: Postmenopausal bleeding [N95.0] Abnormal endometrial ultrasound [R93.5] Thickened endometrium [R93.89] Performed By: #### S #### [facility] CLIA [id number] [address] [place] [address] [place] FINAL DIAGNOSIS Normal [facility] Comment on above: Order Comment: Speci men Type: TISSUE SPECIMEN Ordering Facility: [facility] Address: [address] [place] [address] Result Comment: A. E ndometrium biopsy - Strips of benign endometrial epithelium without supporting stroma - Focal findings suggestive of endometrial polyp - Rare strips of benign endocervical tissue and squamous epithelium Performed By: #### S #### [facility] CLIA [id number] [address] [place] [address] OF [facility] FINAL PERFORMING LAB Normal [facility] Comment on above: Order Comment: Speci men Type: TISSUE SPECIMEN Ordering Facility: [facility] Address: [address] [place] [address] Result Comment: Diag nostic interpretation performed at [facility], [address] [place] [address] CLIA# [id number] Inside Sales Executive: Moshe Craft M.D. Performed By: #### S #### [facility] CLIA [id number] [address] [place] [address] [place] GROSS DESCRIPTION Normal [facility] Comment on above: Order Comment: Speci men Type: TISSUE SPECIMEN Ordering Facility: [facility] Address: [address] [place] [address] Result Comment: A. E NDOMETRIUM BIOPSY Received in formalin are multiple red-pink, soft feathery segments of tissue mixed with gelatinous material aggregating to 2.7 x 1.7 x 0.4 cm. Totally submitted in one cassette. CL December 30, 2022 12:41 PM Gross examination performed at [facility], [address] [place] [address] Performed By: #### S #### [facility] CLIA [id number] [address] [place] [address] [place] 25(OH)D3 [facility] 2022 25-hydroxyvitamin D3 [Mass/Vol] 27.3 ng/mL Low 31.0-80.0 [facility] Comment on above: Order Comment: Speci men Type: BLOOD SPECIMEN Ordering Facility: External Submitter Address: , , Result Comment: Clas sification of 25 [place] Vitamin D status: Deficiency/Insufficiency: < or = 30 ng/ml. Sufficiency/Optimal Levels: 31-80 ng/mL Toxicity: > 100 ng/mL. Test performed by chemiluminescent immunoassay. Performed By: #### 5 5454-3 #### [facility] IA [id number] [address] [place] [address] [place] ALBUMIN/CREAT RATIO RND URon 12-22-2022 Albumin DL <= 20 mg/L (U) [Mass/Vol] mg/dL Normal [facility] Comment on above: Order Comment: Panfilo horne Type: BLOOD SPECIMEN Ordering Facility: [facility] Address: [address] [place] [address] Performed By: #### 1 989-3 #### [facility] IA [id number] [address] [place] [address] [place] Albumin/Creatinine (U) [Mass ratio] <16 Normal <30 [facility] Comment on above: Order Comment: Edilbertoi coleen Type: BLOOD SPECIMEN Ordering Facility: [facility] Address: [address] [place] [address] Result Comment: Adul t Male and Female Nephrotic Criteria: <30 mg/g is considered normal to mildly increased 30-300 mg/g is considered moderately increased >300 mg/g is considered severely increased KDIGO. (2013). KDIGO 2012 Clinical Practice Guideline for the Evaluation and Management of Chronic Kidney Disease. Official Journal of the International Society of Nephrology, 3(1), 3-150. Performed By: #### 1 989-3 #### [facility] CLIA [id number] [address] [place] Creatinine (U) [Mass/Vol] 74.2 mg/dL Normal 20.0-300.0 [facility] Comment on above: Order Comment: Speci men Type: BLOOD SPECIMEN Ordering Facility: [facility] Address: [address] [place] [address] Performed By: #### 1 989-3 #### [facility] CLIA [id number] [address] [place] HISTORY PHYSICALon HISTORY PHYSICAL HNO ID: [id number] Author: Latanya Beltran APRN.[facility] [facility] Service: ? Author Type: Nurse Practitioner Type: HANDP Filed: 12/23/2022 1:03 PM Note Text: Surgeon: Eleanor Kenny DO Type of surgery: ENDOMETRIAL BX W/ ENDOCERVICAL SAMPLING W/O CERVICAL DILATION Patient scheduled for surgery on 12/30/2022 Surgery Location: [place] Assessment/Plan TALIA (obstructive sleep apnea) Assessment: Patient [...] recent CPE completed on 11/30/2022 located in [facility] by Bipin Nina Encounter reviewed with patient. [...] zaleplon (SONATA) (more content not included)... Normal [facility] Lipid 1996 panelon 3 Cholesterol [Mass/Vol] 183 mg/dL Normal <200 Cl [facility] Comment on above: Order Comment: Panfilo horne Type: BLOOD SPECIMEN Ordering Facility: External Submitter Address: , , Result Comment: <200 mg/dL, Desirable 200-239 mg/dL, Borderline high >239 mg/dL, High Performed By: #### 5 5454-3 #### [facility] CLIA [id number] [address] [place] [address] [place] Cholesterol in HDL [Mass/Vol] 57 mg/dL Normal >39 [facility] Comment on above: Order Comment: Panfilo horne Type: BLOOD SPECIMEN Ordering Facility: External Submitter Address: , , Result Comment: 40-5 9 mg/dL, Acceptable >59 mg/dL, High: Negative risk factor for coronary heart disease <40 mg/dL, Low: Positive risk factor for coronary heart disease Performed By: #### 5 5454-3 #### [facility] CLIA [id number] [address] [place] [address] [place] Cholesterol in LDL [Mass/Vol] 111 mg/dL High <100 [facility] Comment on above: Order Comment: Edilbertoi men Type: BLOOD SPECIMEN Ordering Facility: External Submitter Address: , , Result Comment: <100 mg/dL, Optimal 100-129 mg/dL, Near optimal/above optimal 130-159 mg/dL, Borderline high 160-189 mg/dL, High >189 mg/dL, Very high Secondary prevention optimal LDL Cholesterol levels are recommended to be < 70 mg/dL Performed By: #### 5 5454-3 #### [facility] CLIA [id number] [address] [place] [address] [place] Cholesterol in LDL/Cholesterol in HDL [Mass ratio] 1.95 {ratio} Normal <2.54 [facility] Comment on above: Order Comment: Panfilo horne Type: BLOOD SPECIMEN Ordering Facility: External Submitter Address: , , Result Comment: Batsheva saenz: 1. National Cholesterol Education Program ATP III Guideline At-A-Glance Quick Desk Reference: National Heart, Lung, and Blood Pearson. National Institutes of Health. 2001: NIH Publication No. 01-3305. 2. An International Atherosclerosis Society position paper: global recommendations for the management of dyslipidemia: executive summary, Atherosclerosis. 2014: 232(2):410-413. Performed By: #### 5 5454-3 #### [facility] CLIA [id number] [address] [place] [address] [place] Cholesterol in VLDL [Mass/Vol] 15 mg/dL Normal <30 [facility] Comment on above: Order Comment: Panfilo horne Type: BLOOD SPECIMEN Ordering Facility: External Submitter Address: , , Performed By: #### 5 5454-3 #### [facility] CLIA [id number] [address] [place] [id number] [place] Cholesterol non HDL [Mass/Vol] 126 mg/dL Normal <130 [facility] Comment on above: Order Comment: Panfilo horne Type: BLOOD SPECIMEN Ordering Facility: External Submitter Address: , , Result Comment: <130 mg/dL, Optimal 130-159 mg/dL, Near optimal/above optimal 160-189 mg/dL, Borderline high 190-219 mg/dL, High >219 mg/dL, Very high Secondary prevention optimal non HDL Cholesterol levels are recommended to be <100 mg/dL Performed By: #### 5 5454-3 #### [facility] CLIA [id number] [address] [place] [address] [place] Cholesterol.total/Chol esterol in HDL [Mass ratio] 3.21 {ratio} Normal <5.10 [facility] Comment on above: Order Comment: Panfilo horne Type: BLOOD SPECIMEN Ordering Facility: External Submitter Address: , , Performed By: #### 5 5454-3 #### [facility] CLIA [id number] [address] [place] [address] [place] FASTING TIME 12 hrs Normal [facility] Comment on above: Order Comment: Panfilo horne Type: BLOOD SPECIMEN Ordering Facility: External Submitter Address: , , Performed By: #### 5 5454-3 #### [facility] CLIA [id number] [address] [place] [address] [place] Triglyceride [Mass/Vol] 76 mg/dL Normal <150 [facility] Comment on above: Order Comment: Panfilo coleen Type: BLOOD SPECIMEN Ordering Facility: External Submitter Address: , , Result Comment: <150 mg/dL, Normal 150-199 mg/dL, Borderline high 200-499 mg/dL, High >499 mg/dL, Very high Performed By: #### 5 5454-3 #### [facility] CLIA [id number] [facility] [place] [address] [place] TSH SerPl-aCncon 12-22-2022 TSH Qn 3.800 m[IU]/L Normal 0.270-4.200 [facility] Comment on above: Order Comment: Speci [...] Torre, et al. 2017 Guidelines of the [place] Thyroid Association for the Diagnosis and Management of Thyroid Disease during and the . Thyroid, 2017:27:3:315-389. Performed By: #### 5 5454-3 #### [facility] CLIA [id number] [address] [place] [address] OF [facility] CNPAndressa 12-21-2022 CNPN Telephone ([place]) -- ESME MORFIN ([id number]) 1975 F Date Time Provider Department 12/21/22 [...] Date Reviewed: 11/30/2022 Reviewed by: Bipin Nina APRN.[facility]K[employer] [employer] - Fully Assessed Reason for Visit: Missed [...] (BAQSIMI) 3 mg/actuation nasal spray Use 1 [place] in the nose as needed for low [...] [E88.810] 06/17/2006 Hx of DIABETES IN PREG-UNSPEC [NJW2887] 06/17/2006 MALAISE AND FATIGUE NEC [R53.81, R53.83] [...] 07/29/2018 Gl (more content not included)... Normal [facility] CNOVon 11-30-2022 CNOV Office Visit (ENDONR ) -- ESME MORFIN ([id number]) 1975 F Date Time Provider Department 11/30/22 11:00 AM BIPIN NINA ENDONR During your visit today, we recorded the following information about you: Pulse Blood pressure Weight Height 82/minute 134/88 99.3 kg 1.575 m Bipin Nina APRN.HOUSEKEEPER [facility]ILD [employer] 11/30/2022 12:18 PM Signed Endocrinology Follow-up Subjective [...] (BAQSIMI) 3 mg/actuation nasal spray Use 1 [place] in the nose as needed for low [...] by mouth as needed. Gastric Acid Secretion Medical Information Officer - Proton Pump Inhibitors (PPIs) promethazine (PHENERGAN) 25 mg tablet Take 25 mg by mouth four times daily as needed. Antihistamine - 1st Generation - Phenothiazines Syringe with Needle, Safety (EASY TOUCH SHEATHLOCK SYRG-NDL) 3 mL 25 gauge x 1 syrg Weekly methotrexate injections, monthly vit b12 injections as instructed Medical Supplies and DME - [place] and Syringes tretinoin (RETIN-A) 0.025 % topical cream Apply to affected area daily at bedtime. Acne Therapy Topical - Retinoids and Derivatives zalep (more content not included)... Normal [facility] GLUCOSE, BLOOD (POC)on 11-30 Glucose [Mass/Vol] 133 mg/dL Abnormal 74 - 99 mg/dL [facility] HEMOGLOBIN A1C (POC)on 11-30 HbA1c (Bld) [Mass fraction] 6.6 % Abnormal 4.2 - 5.6 % [facility] CNOVon 11-26-2022 CNOV Office Visit ([facility] ) -- ESME MORFIN ([id number]) 1975 F Date Time Provider Department 11/26/22 4:30 PM THADDEUS DIGGS During your visit today, we recorded the following information about you: Temperature Pulse Blood pressure Weight 98.5 degrees 93/minute 106/75 98.9 kg Height 1.594 m Thaddeus Diggs MD 11/27/2022 7:26 AM Signed Impression: This is Ms. Esme Morfin, a 47 year old female who presents to the [facility] Neurology clinic for follow up. Recently [...] today. Thaddeus Diggs MD Staff, Neuromuscular Center [facility] Neurological Pearson HPI: This is Ms. Esme Morfin, a 47 year old female who presents to the [facility] Neurology clinic for follow up. Recently seen in the setting of cognitive complaints (short-term memory loss, issues getting words to come out the right way). Also concerned about possible changes on MRI. Review: Initially seen 11/13/2022. This is Ms. Esme Morfin, a 47 year old female who presents to the [facility] Neurology clinic with cognitive complaints (short-term [...] finger flexion Thumb abduction 5 Approx 5? Engine Installer 5 Approx 5 Hip flexion Difficult 5? [...] and lower extremities. Rhomberg positive? Coordination: Intact idbukk-fs-upeg-finger bilaterally. Does fairly well puzr-qh-tdka bilaterally. Strugg (more content not included)... Normal [facility] 25(OH)D3 [facility] 2022 25-hydroxyvitamin D3 [Mass/Vol] 32.5 ng/mL Normal 31.0-80.0 [facility] Comment on above: Order Comment: Speci men Type: BLOOD SPECIMEN Ordering Facility: [facility] Address: [address] [place] [address] Result Comment: Clas sification of 25 [place] Vitamin D status: Deficiency/Insufficiency: < or = 30 ng/ml. Sufficiency/Optimal Levels: 31-80 ng/mL Toxicity: > 100 ng/mL. Test performed by chemiluminescent immunoassay. Performed By: #### 1 989-3 #### [facility] CLIA [id number] [address] [place] [address] [place] Zoey 11-24-2022 [place] Telephone ([facility]) -- ESME MORFIN ([id number]) 1975 F Date Time Provider Department 11/24/22 CATA CEDRA [facility] During your visit today, we recorded the following information about you: Cata Cerda RN 11/24/2022 12:13 PM Signed I called 's insurance [facility] at [phone] and spoke to Violeta to discuss pt eligibility for new replacement mask. He stated that she has not gotten a mask under this insurance for the full face mask code(A 7030). Will submit an order to dme. Will update pt. Cata Cerda RN 11/24/2022 1:38 PM Signed Faxed mask/supplies order and last office visit notes to: DME name: Medical Services(Benedict/Med[employer]/Benny yasmin) - /[phone] Fax confirmation received electronically. 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 Normal [facility] Ferritin SerPl-ncon 2022 Ferritin [Mass/Vol] 20.7 ng/mL Normal 14.7-205.1 [facility] Comment on above: Order Comment: Panfilo horne Type: BLOOD SPECIMEN Ordering Facility: [facility] Address: [address] [place] [address] Performed By: #### 1 989-3 #### [facility] CLIA [id number] [address] [place] [address] [place] VITAMIN B1 (THIAMINE), WHOLE BLOODon 11-24-2022 Thiamine (Bld) [Moles/Vol] 117.7 nmol/L Normal 84.3-213.3 [facility] Comment on above: Order Comment: Panfilo [...] developed and its performance characteristics determined by [facility]'s Lacy I[facility] Pathology and Laboratory Medicine [facility] ([facility] It has not been cleared or approved by the FDA. [facility] is regulated under CLIA as qualified to perform high-complexity testing. This test is used for clinical purposes. It should not be regarded as investigational or for research. Performed By: #### 3 016-3, 72013-8 #### [facility] CLIA [id number] [address] [place] [address] [place] VITAMIN B6/PYRIDOXINon 11-24 VITAMIN B6 14.4 nmol/L Low 20.0-125.0 [facility] Comment on above: Order Comment: Speci men Type: BLOOD SPECIMENOrdering Facility: [facility] Address: [address] [place] [address] Result Comment: INTE RPRETIVE INFORMATION: Vitamin B6 (Pyridoxal 5-Phosphate) Pyridoxal 5'-phosphate measured in a specimen collected following an 8-hour or overnight fast accurately indicates vitamin B6 nutritional status. Non-fasting specimen concentration reflects recent vitamin intake. This test was developed and its performance characteristics determined by [facility]. It has not been cleared or approved by the US Food and Drug Administration. This test was performed in a CLIA certified laboratory and is intended for clinical purposes. Performed By: [facility] [address] [place] [address] Inside Sales Executive: Nirmal Rodriguez MD, PhD CLIA Number: [id number] Performed By: #### V ITB6 ####[facility] [id number] [place] [address] Vit B12 SerPl-ncon 023 Cobalamin (Vitamin B12) [Mass/Vol] 327 pg/mL Normal 232-1245 [facility] Comment on above: Order Comment: Speci men Type: BLOOD SPECIMEN Ordering Facility: [facility] Address: [address] [place] [address] Performed By: #### 1 989-3 #### [facility] CLIA [id number] [address] [place] [address] [place] OF [facility] CNOVon 11-13-2022 CNOV Office Visit (NEUFHS ) -- ESME MORFIN ([id number]) 1975 F Date Time Provider Department 11/13/22 8:00 AM THADDEUS DIGGS During your visit today, we recorded the following information about you: Temperature Pulse Blood pressure Weight 97.5 degrees 70/minute 115/81 100.7 kg Height 1.575 m Thaddeus Diggs MD 11/13/2022 9:18 AM Signed Impression: This is Ms. Esme Morfin, a 47 year old female who presents to the [facility] Neurology clinic with cognitive complaints (short-term [...] 11/26/2022. Thaddeus Diggs MD Staff, Neuromuscular Center [facility] Neurological [facility] HPI: This is Ms. 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 Normal [facility] CERVICAL LYMPH NODE MAPPI [facility] 11-12-2022 [place] CERVICAL LYMPH NODE MAPPING * * *Final Report* * * DATE OF EXAM: Nov 12 2022 12:27PM [facility] 1049 - CERVICAL LYMPH NODE MAPPING / [...] nodes. Small bilateral thyroid nodules as described. Filling Carrier: PSCB Transcribe Date/Time: Nov 16 2022 8:08A Dictated by : VIOLETA MACHADO MD This examination was interpreted and the report reviewed and electronically signed by: VIOLETA MACHADO MD on Nov 16 2022 8:16AM EST [id number] Normal [facility] CNCOon 10-27-2022 CNCO HNO ID: [id number] Author: Coordinator, Mammography Service: ? Author Type: Physician Type: Letter Filed: 10/29/2022 11:31 PM Note Text: October 28, 2022 PID: [id number] Esme Shelbie [address] [place] [address] Dear Ms. Morfin, We are pleased to [...] report will be kept on file at [facility] as part of your permanent medical record and are available for your continuing care. Thank you for allowing us to help in meeting your health care needs. Sincerely, Dr. Pagan Interpreting Radiologist [facility] (Normal over 40) Normal [facility] JUS SCREENING W TOMOon 10-27 JUS SCREENING W SURINDER * * *Final Report* * * DATE OF EXAM: Oct 27 2022 10:46AM LNW 0582 - JUS SCREENING W SURINDER / PROCEDURE REASON: Encounter for screening mammogram for malignant neoplasm of breast * * * * Physician Interpretation * * * * RESULT: #[id number] - JUS SCREENING W SURINDER BILATERAL FIRST [...] staff physician. karen Canada M.D., D.O./caron:10/27/2022 11:12:38 Meat Slicer(s): DALI Foster)(M), [facility] letter sent: Normal over 40 Mammogram BI-RADS: [...] Health, Family Medicine, and Medical/Surgical Oncology, the [facility] has carefully reviewed the data and [...] their providers when to stop screening mammograms. Filling Carrier: Caron Transcribe Date/Time: Oct 27 2022 10:26A Dictated by: JING HALL, DO This examination was interpreted and the report reviewed and electronically signed by: ANNE PAGAN MD on Oct 27 2022 11:12AM EST [id number] Normal [facility] CNOVon 10-23-2022 CNOV Office Visit (CARDBD ) -- ESME MORFIN ([id number]) 1975 F Date Time Provider Department 10/23/22 3:00 PM DARIEL LE During your visit today, we recorded the following information about you: Pulse Blood pressure Weight Height 79/minute 128/80 99.8 kg 1.582 m Dariel Le MD 10/23/2022 5:06 PM Signed [facility] Department of Cardiology [address] [place] [address] (office) [phone] (fax) 10/23/2022 This note was written using medical terminology and is intended to be used for medical purposes by other health insurance healthcare representative Patient presents with: New Patient Evaluation HPI: [...] the time. She is now scheduled at [place] for preop cardiovascular assessment prior to endometrial [...] (BAQSIMI) 3 mg/actuation nasal spray Use 1 [place] in the nose as needed for low [...] tubing, h (more content not included)... Normal [facility] -- ESME MORFIN ([id number]) 1975 F Date Time Provider Department 10/23/22 LUIS F BARRAZA [facility] During your visit today, we recorded the [...] (BAQSIMI) 3 mg/actuation nasal spray Use 1 [place] in the nose as needed for low blood sugar. May repeat after 15 minutes using a new device if there is no response. - Blood-Glucose Sensor (ScreenleapSTYLE NBA 3 SENSOR) vinny Use to check [...] [E88.81] 06/17/2006 Hx of DIABETES IN PREG-UNSPEC [TBH2170] 06/17/2006 MALAISE AND FATIGUE NEC [R53.81, R53.83] [...] Conjunctivitis [H1 (more content not included)... Normal [facility] OEF30ts 10-23-2022 ECG01 Ventricular Rate : 7 5 BPM Atrial Rate : 75 BPM P-R Interval : 126 ms QRS Duration : 96 ms Q-T Interval : 428 ms QTC Calculation(Bazett) : 477 ms Calculated P [place] : -13 degrees Calculated R [place] : -55 degrees Calculated T [place] : -15 degrees NORMAL SINUS RHYTHM LEFT ANTERIOR FASCICULAR BLOCK NONSPECIFIC T WAVE ABNORMALITY ABNORMAL ECG No Change from 06/16/2022 Confirmed by DARIEL LE MD ([id number]), film editor LACY NEW ([id number]) on 10/23/2022 3:56:35 PM NAME : ESME MORFIN PID : [id number] : 1975 Gender : Female Race : ORD : Procedure Date : Oct 23 2022 15:14:24 Edit Date : Oct 23 2022 15:56:38 Diagnosis: NORMAL SINUS RHYTHM LEFT ANTERIOR FASCICULAR BLOCK NONSPECIFIC T WAVE ABNORMALITY ABNORMAL ECG No Change from 06/16/2022 Confirmed by DARIEL LE MD ([id number]), film editor LACY NEW ([id number]) on 10/23/2022 3:56:35 PM Test Reason : Location : 503 : CARD Overread By : DARIEL LE MD Edited By : LACY NEW Referred By : REY Acquired by : , Normal [facility] 25([place] 2022 25-hydroxyvitamin D3 [Mass/Vol] 24.9 ng/mL Low 31.0-80.0 [facility] Comment on above: Order Comment: Speci men Type: BLOOD SPECIMEN Ordering Facility: External Submitter Address: , , Result Comment: Clas sification of 25 [place] Vitamin D status: Deficiency/Insufficiency: < or = 30 ng/ml. Sufficiency/Optimal Levels: 31-80 ng/mL Toxicity: > 100 ng/mL. Test performed by chemiluminescent immunoassay. Performed By: #### 5 5454-3 #### [facility] CLIA [id number] [address] [place] [place] [id number] [place] Basic metabolic 2000 panelon 10-09-2022 Anion gap [Moles/Vol] 11 mmol/L Normal 9-[address] [facility] Comment on above: Order Comment: Speci men Type: BLOOD SPECIMEN Ordering Facility: [facility] Address: [address] [place] [address] Performed By: #### 1 989-3 #### [facility] CLIA [id number] [address] [place] [address] [place] Calcium [Mass/Vol] 9.1 mg/dL Normal 8.5-10.2 [facility] Comment on above: Order Comment: Speci men Type: BLOOD SPECIMEN Ordering Facility: [facility] Address: [address] [place] [address] Performed By: #### 1 989-3 #### [facility] CLIA [id number] [address] [place] [address] [place] Chloride [Moles/Vol] 105 mmol/L Normal 97-105 [facility] Comment on above: Order Comment: Speci men Type: BLOOD SPECIMEN Ordering Facility: [facility] Address: [address] [place] [address] Performed By: #### 1 989-3 #### [facility] CLIA [id number] [address] [place] [address] [place] CO2 [Moles/Vol] 22 mmol/L Normal 22-30 [facility] Comment on above: Order Comment: Speci men Type: BLOOD SPECIMEN Ordering Facility: [facility] Address: [address] [place] [address] Performed By: #### 1 989-3 #### [facility] CLIA [id number] [address] [place] [place] [id number] [place] Creatinine [Mass/Vol] 0.92 mg/dL Normal 0.58-0.[address] [facility] Comment on above: Order Comment: Panfilo horne Type: BLOOD SPECIMEN Ordering Facility: [facility] Address: [address] [place] [address] Performed By: #### 1 989-3 #### [facility] CLIA [id number] [address] [place] [address] [place] Creatinine and Glomerular filtration rate.predicted panel (S/P/Bld) 76 mL/min/1.73m??? Normal >=60 [facility] Comment on above: Order Comment: Panfilo horne Type: BLOOD SPECIMEN Ordering Facility: [facility] Address: [address] [place] [address] Result Comment: Floresita mated Glomerular Filtration Rate [...] GFR. Performed By: #### 1 989-3 #### [facility] CLIA [id number] [address] [place] [address] [place] Glucose [Mass/Vol] 101 mg/dL High 74-99 [facility] Comment on above: Order Comment: Panfilo horne Type: BLOOD SPECIMEN Ordering Facility: [facility] Address: [address] [place] [address] Result Comment: The [place] Diabetes Association (ADA) provides guidance for cutoff [...] Standards of Medical Care in Diabetes 2016, [place] Diabetes Association. Diabetes Care. 2016.39(Suppl 1). Performed By: #### 1 989-3 #### [facility] CLIA [id number] [address] [place] [address] [place] Potassium [Moles/Vol] 4.0 mmol/L Normal 3.7-5.[address] [facility] Comment on above: Order Comment: Speci men Type: BLOOD SPECIMEN Ordering Facility: [facility] Address: [address] [place] [address] Performed By: #### 1 989-3 #### [facility] CLIA [id number] [address] [place] [address] [place] Sodium [Moles/Vol] 138 mmol/L Normal 136-144 [facility] Comment on above: Order Comment: Speci men Type: BLOOD SPECIMEN Ordering Facility: [facility] Address: [address] [place] [address] Performed By: #### 1 989-3 #### [facility] CLIA [id number] [address] [place] [address] [place] Urea nitrogen [Mass/Vol] 10 mg/dL Normal 7-21 [facility] Comment on above: Order Comment: Speci men Type: BLOOD SPECIMEN Ordering Facility: [facility] Address: [address] [place] [address] Performed By: #### 1 989-3 #### [facility] CLIA [id number] [address] [place] [address] [place] CBC W Auto Differential pane l (Bld)on 10-09-2022 Basophils (Bld) [#/Vol] 0.06 10*3/uL Normal <0.11 [facility] Comment on above: Order Comment: Speci men Type: BLOOD SPECIMEN Ordering Facility: [facility] Address: [address] [place] [id number] Performed By: #### 5 7021-8 #### [facility] CLIA [id number] [address] [place] Basophils/100 WBC (Bld) 1.0 % Normal [facility] Comment on above: Order Comment: Speci men Type: BLOOD SPECIMEN Ordering Facility: [facility] Address: [address] Performed By: #### 5 7021-8 #### [facility] CLIA [id number] [address] [place] [address] [place] Differential cell count method Nom (Bld) Auto Normal [facility] Comment on above: Order Comment: Speci men Type: BLOOD SPECIMEN Ordering Facility: [facility] Address: [address] Performed By: #### 5 7021-8 #### [facility] CLIA [id number] [address] [place] [address] [place] Eosinophils (Bld) [#/Vol] 0.19 10*3/uL Normal <0.46 [facility] Comment on above: Order Comment: Speci men Type: BLOOD SPECIMEN Ordering Facility: [facility] Address: [address] Performed By: #### 5 7021-8 #### [facility] CLIA [id number] [address] [place] Eosinophils/100 WBC (Bld) 3.0 % Normal [facility] Comment on above: Order Comment: Speci men Type: BLOOD SPECIMEN Ordering Facility: [facility] Address: [address] [place] [address] Performed By: #### 5 7021-8 #### [facility] CLIA [id number] [address] [place] [address] [place] Erythrocyte distribution width (RBC) [Ratio] 13.3 % Normal 11.5-15.0 [facility] Comment on above: Order Comment: Speci men Type: BLOOD SPECIMEN Ordering Facility: [facility] Address: [address] [place] [address] Performed By: #### 5 7021-8 #### [facility] CLIA [id number] [address] [place] Hematocrit (Bld) [Volume fraction] 42.3 % Normal 36.0-46.0 [facility] Comment on above: Order Comment: Speci men Type: BLOOD SPECIMEN Ordering Facility: [facility] Address: [address] Performed By: #### 5 7021-8 #### [facility] CLIA [id number] [address] [place] [address] [place] Hemoglobin (Bld) [Mass/Vol] 13.6 g/dL Normal 11.5-15.5 [facility] Comment on above: Order Comment: Speci men Type: BLOOD SPECIMEN Ordering Facility: [facility] Address: [address] Performed By: #### 5 7021-8 #### [facility] CLIA [id number] [address] [place] [address] [place] Immature granulocytes (Bld) [#/Vol] 10*3/uL Normal <0.10 [facility] Comment on above: Order Comment: Speci men Type: BLOOD SPECIMEN Ordering Facility: [facility] Address: [address] Performed By: #### 5 7021-8 #### [facility] CLIA [id number] [address] [place] [address] [place] Immature granulocytes/100 WBC (Bld) 0.3 % Normal [facility] Comment on above: Order Comment: Speci men Type: BLOOD SPECIMEN Ordering Facility: [facility] Address: [address] [place] [address] Performed By: #### 5 7021-8 #### [facility] CLIA [id number] [address] [place] [address] [place] Lymphocytes (Bld) [#/Vol] 2.00 10*3/uL Normal 1.00-4.00 [facility] Comment on above: Order Comment: Speci men Type: BLOOD SPECIMEN Ordering Facility: [facility] Address: [address] [place] [address] Performed By: #### 5 7021-8 #### [facility] CLIA [id number] [address] [place] Lymphocytes/100 WBC (Bld) 31.9 % Normal [facility] Comment on above: Order Comment: Speci men Type: BLOOD SPECIMEN Ordering Facility: [facility] Address: [address] [place] [address] Performed By: #### 5 7021-8 #### [facility] CLIA [id number] [address] [place] [address] [place] MCH (RBC) [Entitic mass] 28.9 pg Normal 26.0-34.0 [facility] Comment on above: Order Comment: Speci men Type: BLOOD SPECIMEN Ordering Facility: [facility] Address: [address] [place], [place] [address] Performed By: #### 5 7021-8 #### [facility] CLIA [id number] [address] [place] [address] [place] MCHC (RBC) [Mass/Vol] 32.2 g/dL Normal 30.5-36.[address] [facility] Comment on above: Order Comment: Speci men Type: BLOOD SPECIMEN Ordering Facility: [facility] Address: [address] [place], [place] [address] Performed By: #### 5 7021-8 #### [facility] CLIA [id number] [address] [place] [address] [place] MCV (RBC) [Entitic vol] 89.8 fL Normal 80.0-100.0 [facility] Comment on above: Order Comment: Speci men Type: BLOOD SPECIMEN Ordering Facility: [facility] Address: [address] Performed By: #### 5 7021-8 #### [facility] CLIA [id number] [address] [place] [address] [place] Monocytes (Bld) [#/Vol] 0.60 10*3/uL Normal <0.87 [facility] Comment on above: Order Comment: Speci men Type: BLOOD SPECIMEN Ordering Facility: [facility] Address: [address] Performed By: #### 5 7021-8 #### [facility] CLIA [id number] [address] [place] [address] [place] Monocytes/100 WBC (Bld) 9.6 % Normal [facility] Comment on above: Order Comment: Speci men Type: BLOOD SPECIMEN Ordering Facility: [facility] Address: [address] Performed By: #### 5 7021-8 #### [facility] CLIA [id number] [address] [place] [address] [place] Neutrophils (Bld) [#/Vol] 3.39 10*3/uL Normal 1.45-7.50 [facility] Comment on above: Order Comment: Speci men Type: BLOOD SPECIMEN Ordering Facility: [facility] Address: [address] Performed By: #### 5 7021-8 #### [facility] CLIA [id number] [address] [place] [address] [place] Neutrophils/100 WBC (Bld) 54.2 % Normal [facility] Comment on above: Order Comment: Speci men Type: BLOOD SPECIMEN Ordering Facility: [facility] Address: [address] Performed By: #### 5 7021-8 #### [facility] CLIA [id number] [address] [place] [address] [place] Nucleated RBC (Bld) [#/Vol] 10*3/uL Normal <0.01 [facility] Comment on above: Order Comment: Speci men Type: BLOOD SPECIMEN Ordering Facility: [facility] Address: [address] [place], [place] [address] Performed By: #### 5 7021-8 #### [facility] CLIA [id number] [address] [place] [address] [place] Nucleated RBC/100 WBC (Bld) [Ratio] 0.0 /100 WBC Normal [facility] Comment on above: Order Comment: Speci men Type: BLOOD SPECIMEN Ordering Facility: [facility] Address: [address] [place], [place] [address] Performed By: #### 5 7021-8 #### [facility] CLIA [id number] [address] [place] [address] [place] Platelet mean volume (Bld) [Entitic vol] 11.9 fL Normal 9.0-12.7 [facility] Comment on above: Order Comment: Speci men Type: BLOOD SPECIMEN Ordering Facility: [facility] Address: [address] [place], [place] [address] Performed By: #### 5 7021-8 #### [facility] CLIA [id number] [address] [place] [address] [place] Platelets (Bld) [#/Vol] 219 10*3/uL Normal 150-400 [facility] Comment on above: Order Comment: Speci men Type: BLOOD SPECIMEN Ordering Facility: [facility] Address: [address] [place] [address] Performed By: #### 5 7021-8 #### [facility] CLIA [id number] [address] [place] [address] [place] RBC (Bld) [#/Vol] 4.71 10*6/uL Normal 3.90-5.20 [facility] Comment on above: Order Comment: Speci men Type: BLOOD SPECIMEN Ordering Facility: [facility] Address: [address] [place] [address] Performed By: #### 5 7021-8 #### [facility] CLIA [id number] [address] [place] [address] [place] WBC (Bld) [#/Vol] 6.26 10*3/uL Normal 3.70-11.00 [facility] Comment on above: Order Comment: Speci men Type: BLOOD SPECIMEN Ordering Facility: [facility] Address: [address] [place] [address] Performed By: #### 5 7021-8 #### [facility] CLIA [id number] [address] [place] [address] [place] Cortis SerPl-ncon 10-10-19 Cortisol [Mass/Vol] 8.0 ug/dL Normal 4.8-19.5 [facility] Comment on above: Order Comment: Speci men Type: BLOOD SPECIMEN Ordering Facility: [facility] Address: [address] [place] [address] Result Comment: Prov ided reference range is from 6-10 AM sample collection time. Cortisol Reference Range: 6-10 AM = 4.8-19.5 ug/dL, 4-8 PM = 2.5-11.9 ug/dL Performed By: #### 1 989-3 #### [facility] CLIA [id number] [address] [place] [address] [place] NT-proBNP SerPl-mCncon 10-09 Natriuretic peptide.B prohormone N-Terminal [Mass/Vol] 251 pg/mL High <125 [facility] Comment on above: Order Comment: Speci men Type: BLOOD SPECIMEN Ordering Facility: [facility] Address: [address] [place] [address] Performed By: #### 1 989-3 #### [facility] CLIA [id number] [address] [place] [id number] [place] TSH SerPl-aCncon 10-09-2022 TSH Qn 4.130 m[IU]/L Normal 0.270-4.200 [facility] Comment on above: Order Comment: Speci men Type: BLOOD SPECIMEN Ordering Facility: [facility] Address: [address] [facility] [place] [address] Result Comment: If t he patient is , TSH reference range varies by gestational period: First Trimester (weeks 9-12): 0.180-2.990 mIU/L Second Trimester: 0.110-3.980 mIU/L Third Trimester: 0.480-4.710 mIU/L Rohit Mares et al. A Practical Approach for the Verifications and Determination of Site- and Trimester-Specific Reference Intervals for Thyroid Function tests in . Thyroid, 2019:29:3:412-420. Hany Torre, et al. 2017 Guidelines of the [place] Thyroid Association for the Diagnosis and Management of Thyroid Disease during and the . Thyroid, 2017:27:3:315-389. Performed By: #### 1 989-3 #### [facility] CLIA [id number] [address] [place], [place] [id number] [place] Zoey 10-06-2022 [facility] Telephone ([facility]) -- ESME MORFIN ([id number]) 1975 F Date Time Provider Department 10/06/22 [...] PM Signed Esme declines to proceed at [facility] I will need to find a date/time at [place] that can be schedule please complete your workup thanks Luis F Barraza, AD TRAFFICKER.[facility] [facility] 10/07/2022 2:00 PM Signed patient had a monitor at an outside hospital --- I never got the results please find Hx of PVCs and was previously on metoprolol and may need again if she is still having palpitations BP and HR??? Luis F Barraza, RN, MSN, NUCLEAR CHEMISTRY TECHNICIAN-C Adult Nurse Practitioner Rowan Verma Department of Cardiovascular Medicine [facility] Heart, Vascular, Thoracic [facility] Norm Hanna PA-C 10/08/2022 10:47 AM Signed Event monitor results from PCP 06/2022 full report will be scanned into [employer]. SILVANA Puckett Kelly D, AD TRAFFICKER.HOUSEKEEPER CHILD CARE 10/08/2022 1:31 PM Signed monitor reviewed occasional PACs, PSVT--- no concerning dysrhythmias on monitor Luis F Barraza RN, MSN, NUCLEAR CHEMISTRY TECHNICIAN-C Adult Nurse Practitioner Rowan Verma Department of Cardiovascular Medicine [facility] Heart, Vascular, Thoracic [facility] Eleanor Kenny DO 10/16/2022 9:39 AM Signed I am aware she declines to be at [place] I am out of office and out of town since 10/09 and not returning until 10/19 I have sent to assistant professor surgical technology to remove from Monday 10/23 and will contact patient once date at [place] determined. Allergies As of Date: 10/06/2022 Noted [...] (BAQSIMI) 3 mg/actuation nasal spray Use 1 [place] in the nose as needed for low [...] Dx: G47.3 (more content not included)... Normal [facility] HISTORY PHYSICALon HISTORY PHYSICAL HNO ID: [id number] Author: Norm Hanna PA-C Service: ? Author Type: Physician Gynecology Teacher Type: HANDP Filed: 10/13/2022 7:42 AM Note [...] (VOLTAREN ARTHR (more content not included)... Normal [facility] 10-02-2022 [facility] Office Visit (OBGYCC ) -- ESME MORFIN ([id number]) 1975 F Date Time Provider Department 10/02/22 1:40 PM [facility] During your visit today, we recorded [...] TOTAL/COMPLETE 02-04-2010 ? patial/incomplete Review of Systems: PUBLIC INFORMATION RELATIONS MANAGER: SEE HPI The remainder of the review [...] alternative i (more content not included)... Normal [facility]20[facility] -- ESME MORFIN ([id number]) 1975 F Date Time Provider Department 09/16/22 [...] Date Reviewed: 07/16/2022 Reviewed by: Bud Ca APRN.HOUSEKEEPER CHILD CARE - Fully Assessed Reason for Visit: Scheduling [3921] Prescriptions as of 09/18/2022 - dulaglutide (TRULICITY) 0.75 mg/0.5 mL pen injector Inject 0.75 mg subcutaneously one time a week. - acarbose (PRECOSE) 50 mg tablet Take 1 tablet by mouth three times daily. - glucagon (BAQSIMI) 3 mg/actuation nasal spray Use 1 [place] in the nose as needed for low [...] [E88.81] 06/17/2006 Hx of DIABETES IN PREG-UNSPEC [[id number]] 06/17/2006 MALAISE AND FATIGUE NEC [R53.81, R53.83] [...] cyst, c (more content not included)... Normal [facility] PELVIC US WHIon 09-10-2022 [facility] CNOVon 07-20-2022 CNOV Office Visit (OBGYCC ) -- ESME MORFIN ([id number]) 1975 F Date Time Provider Department 07/20/22 [...] Date Reviewed: 07/16/2022 Reviewed by: Bud Ca APRN.HOUSEKEEPER CHILD CARE - Fully Assessed Reason for Visit: Appointment [...] (BAQSIMI) 3 mg/actuation nasal spray Use 1 [place] in the nose as needed for low [...] [E88.81] 06/17/2006 Hx of DIABETES IN PREG-UNSPEC [[id number]] 06/17/2006 MALAISE AND FATIGUE NEC [R53.81, R53.83] [...] [H02.831,*06/11/2022 C (more content not included)... Normal [facility] POINT OF CARE GLUCOSEon 06-09 Glucose [Mass/Vol] 107 mg/dL Critically high 74-106 [facility] Comment on above: Performed By: #### JAISON BETTS #### [facility] [address] [address] [address] Ling Martin Glucose [Mass/Vol] 89 mg/dL Normal 74-106 [facility] Comment on above: Performed By: #### JAISON BETTS #### [facility] [address] [address] [address] Ling Martin Glucose [Mass/Vol] 80 mg/dL Normal 74-106 [facility] Comment on above: Performed By: #### P OCGLUC #### [facility] [address] [place] [address] Dr. Ling Martin Glucose [Mass/Vol] 86 mg/dL Normal 74-106 [facility] Comment on above: Performed By: #### P OCGLUC #### [facility] [address] [place] [address] Dr. Ling Martin AMYLASEon 07-05-2022 Amylase [Catalytic activity/Vol] 49 U/L Normal 25-115 [facility] Comment on above: Performed By: #### C BC #### [facility] [address] [place] [address] Dr. Ling Martin CBC AUTO DIFFon 07-05-2022 BASO # 0.1 103/ul Normal 0.0-0.1 [facility] Comment on above: Performed By: #### P OCGLUC #### [facility] [address] [place] [address] Dr. Ling Martin Basophils/100 WBC (Bld) 0.8 % Normal 0.2-2.0 [facility] Comment on above: Performed By: #### P OCGLUC #### [facility] [address] [place] [address] Dr. Ling Martin EO # 0.2 103/ul Normal 0.0-0.7 [facility] Comment on above: Performed By: #### P OCGLUC #### [facility] [address] [place] [address] Dr. Ling Martin Eosinophils/100 WBC (Bld) 2.5 % Normal 0.9-7.0 [facility] Comment on above: Performed By: #### P OCGLUC #### [facility] [address] [place] [address] Dr. Ling Martin Erythrocyte distribution width (RBC) [Ratio] 13.4 % Normal 11.0-15.0 [facility] Comment on above: Performed By: #### P OCGLUC #### [facility] [address] [place] [address] Dr. Ling Martin Hematocrit (Bld) [Volume fraction] 43.0 % Normal 36.0-48.0 [facility] Comment on above: Performed By: #### P OCGLUC #### [facility] [address] [address] [address] Ling Martin Hemoglobin (Bld) [Mass/Vol] 14.2 g/dL Normal 12.0-16.0 [facility] Comment on above: Performed By: #### P OCGLUC #### [facility] [address] [address] [address] Ling Martin IG # 0.03 10e3/ul Normal 0.00-0.03 [facility] Comment on above: Performed By: #### P OCGLUC #### [facility] [address] [address] [address] Ling Martin IG % 0.4 % Normal 0.0-0.5 [facility] Comment on above: Performed By: #### P OCGLUC #### [facility] [address] [place] [address] Dr. Ling Martin LYMPH # 2.3 103/ul Normal 1.2-3.8 [facility] Comment on above: Performed By: #### P OCGLUC #### [facility] [address] [place] [address] Dr. Ling Martin Lymphocytes/100 WBC (Bld) 29.7 % Normal 20.5-60.0 [facility] Comment on above: Performed By: #### P OCGLUC #### [facility] [address] [place] [address] Dr. Ling Martin MANUAL DIFF REQ NO Normal [facility] Comment on above: Performed By: #### P OCGLUC #### [facility] [address] [address] [address] Ling Martin MCH (RBC) [Entitic mass] 29.0 pg Normal 26.7-34.0 [facility] Comment on above: Performed By: #### P OCGLUC #### [facility] [address] [place] [address] Dr. Ling Martin MCHC (RBC) [Mass/Vol] 33.0 g/dL Normal 29.9-35.2 [facility] Comment on above: Performed By: #### P OCGLUC #### [facility] [address] [address] [address] iLng Martin MCV (RBC) [Entitic vol] 87.8 fL Normal 81.0-99.0 [facility] Comment on above: Performed By: #### P OCGLUC #### [facility] [address] [place] [address] Dr. Ling Martin MONO # 0.6 103/ul Normal 0.3-0.8 [facility] Comment on above: Performed By: #### P OCGLUC #### [facility] [address] [place] [address] Dr. Ling Martin Monocytes/100 WBC (Bld) 7.9 % Normal 1.7-12.0 [facility] Comment on above: Performed By: #### P OCGLUC #### [facility] [address] [place] [address] Dr. Ling Martin NEUT # 4.5 103/ul Normal 1.4-6.5 [facility] Comment on above: Performed By: #### P OCGLUC #### [facility] [address] [place] [address] Dr. Ling Martin Neutrophils/100 WBC (Bld) 58.7 % Normal 43.0-75.0 [facility] Comment on above: Performed By: #### P OCGLUC #### [facility] [address] [place] [address] Dr. Ling Martin Platelet mean volume (Bld) [Entitic vol] 10.7 fL Normal 9.5-13.5 [facility] Comment on above: Performed By: #### P OCGLUC #### [facility] [address] [place] [address] Dr. Ling Martin PLT 257 103/ul Normal 150-450 [facility] Comment on above: Performed By: #### P OCGLUC #### [facility] [address] [place] [address] Dr. Ling Martin RBC 4.90 106/ul Normal 4.20-5.40 [facility] Comment on above: Performed By: #### P OCGLUC #### [facility] [address] [place] [address] Dr. Ling Martin WBC 7.7 103/ul Normal 4.0-11.0 [facility] Comment on above: Performed By: #### P OCGLUC #### [facility] [address] [address] [address] 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 May repeat after 15 minutes using a new device if there is no response. - semaglutide (OZEMPIC) 0.25 mg or 0.5 mg (2 mg/3 mL) pen Inject 0.25 mg subcutaneously one time a week. - Blood-Glucose Sensor (ScreenleapSTYLE NBA 3 SENSOR) vinny Use to check [...] [E88.81] 06/17/2006 Hx of DIABETES IN PREG-UNSPEC [[id number]] 06/17/2006 MALAISE AND FATIGUE NEC [R53.81, R53.83] [...] [D50.9] 06 (more content not included)... Normal [facility] CULTURE URINEon 07-05-2022 CULTURE URINE Culture Observations : NO GROWTH. Normal [facility] Comment on above: Performed By: #### Yelitza WHITTAKER UMICRO #### [facility] [address] [place] [address] Dr. Ling Martin ER URINE PROFILEon 3 Bilirubin Ql (U) Negative Normal NEGATIVE [facility] Comment on above: Performed By: #### Yelitza WHITTAKER UMICRO #### [facility] [address] [place] [address] Dr. Ling Martin Clarity (U) CLEAR Normal CLEAR [facility] Comment on above: Performed By: #### Yelitza WHITTAKER UMICRO #### [facility] [address] [place] [address] Dr. Ling Martin Color (U) LT. YELLOW Normal YELLOW [facility] Comment on above: Performed By: #### Yelitza WHITTAKER UMICRO #### [facility] [address] [place] [address] Dr. Ling Martin ERUAHD A micrscopic examina tion will be performed if indicated. Normal [facility] Comment on above: Performed By: #### Yelitza WHITTAKER UMICRO #### [facility] [address] [place] [address] Dr. Ling Martin Glucose Ql (U) Negative Normal NEGATIVE [facility] Comment on above: Performed By: #### CONNIE BETTSRO #### [facility] [address] [place] [address] Dr. Ling Martin Hemoglobin Ql (U) SMALL Abnormal NEGATIVE [facility] Comment on above: Performed By: #### CONNIE BETTSRO #### [facility] [address] [place] [address] Dr. Ling Martin Ketones Ql (U) Negative Normal NEGATIVE [facility] Comment on above: Performed By: #### CONNIE BETTSRO #### [facility] [address] [place] [address] Dr. Ling Martin LEUKOCYTES Negative Normal NEGATIVE [facility] Comment on above: Performed By: #### Yelitza WHITTAKER UMICRO #### [facility] [address] [place] [address] Dr. Ling Martin Nitrite Ql (U) Negative Normal NEGATIVE [facility] Comment on above: Performed By: #### Yelitza WHITTAKER UMICRO #### [facility] [address] [place] [address] Dr. Ling Martin pH (U) 5.5 [pH] Normal 5-9 [facility] Comment on above: Performed By: #### Yelitza WHITTAKER UMICRO #### [facility] [address] [place] [address] Dr. Ling Martin SPEC GRAVITY 1.025 Normal 1.005-<=1.0 25 [facility] Comment on above: Performed By: #### Yelitza WHITTAKER UMICRO #### [facility] [address] [place] [address] Dr. Ling Martin UA PROTEIN Negative Normal NEGATIVE/ TRACE [facility] Comment on above: Performed By: #### Yelitza WHITTAKER UMICRO #### [facility] [address] [place] [address] Dr. Ling Martin UR MICRO IND INDICATED Normal [facility] Comment on above: Performed By: #### Yelitza WHITTAKER UMICRO #### [facility] [address] [place] [address] Dr. Ling Martin Urobilinogen Qn (U) 1.0 {Sera'U}/dL Normal 0.2 - 1. 0 [facility] Comment on above: Performed By: #### Yelitza WHITTAKER UMICRO #### [facility] [address] [place] [address] Dr. Ling Martin LIPASEon 07-05-2022 Lipase [Catalytic activity/Vol] 69.0 U/L Critically low 73.0-393.0 [facility] Comment on above: Performed By: #### C BC #### [facility] [address] [place] [address] Dr. Ling Martin LIVER PROFILEon 07-05-2022 Albumin [Mass/Vol] 3.9 g/dL Normal 3.4-5.0 [facility] Comment on above: Performed By: #### C BC #### [facility] [address] [place] [address] Dr. Ling Martin Albumin/Globulin [Mass ratio] 1.1 {ratio} Normal [facility] Comment on above: Performed By: #### C BC #### [facility] [address] [place] [address] Dr. Ling Martin ALP [Catalytic activity/Vol] 119 U/L Critically high 46-116 [facility] Comment on above: Performed By: #### C BC #### [facility] [address] [place] [address] Dr. Ling Martin ALT [Catalytic activity/Vol] 38 U/L Normal 14-59 [facility] Comment on above: Performed By: #### C BC #### [facility] [address] [place] [address] Dr. Ling Martin AST [Catalytic activity/Vol] 22 U/L Normal 15-37 [facility] Comment on above: Performed By: #### C BC #### [facility] [address] [place] [address] Dr. Ling Martin BILI, CONJUGATED 0.1 mg/dL Normal 0.0-0.2 [facility] Comment on above: Performed By: #### C BC #### [facility] [address] [place] [address] Dr. Ling Martin Bilirubin [Mass/Vol] 0.3 mg/dL Normal 0.2-1.0 [facility] Comment on above: Performed By: #### C BC #### [facility] [address] [place] [address] Dr. Ling Martin Globulin (S) [Mass/Vol] 3.6 g/dL Normal [facility] Comment on above: Performed By: #### C BC #### [facility] [address] [place] [address] Dr. Ling Martin Protein [Mass/Vol] 7.5 g/dL Normal 6.4-8.2 [facility] Comment on above: Performed By: #### C BC #### [facility] [address] [address] [address] Lnig Martin POINT OF CARE GLUCOSEon 06-09 Glucose [Mass/Vol] 107 mg/dL Critically high 74-106 [facility] Comment on above: Performed By: #### P OCGLUC #### [facility] [address] [place] [address] Dr. Ling Martin PROF CHEM 8 (BAS METB)on Anion gap [Moles/Vol] 13.0 mmol/L Normal [facility] Comment on above: Performed By: #### C BC #### [facility] [address] [place] [address] Dr. Ling Martin Calcium [Mass/Vol] 8.7 mg/dL Normal 8.5-10.1 [facility] Comment on above: Performed By: #### C BC #### [facility] [address] [place] [address] Dr. Ling Martin Chloride [Moles/Vol] 106 mmol/L Normal 98-107 [facility] Comment on above: Performed By: #### C BC #### [facility] [address] [place] [address] Dr. Ling Martin CO2 [Moles/Vol] 24.2 mmol/L Normal 21.0-32.0 [facility] Comment on above: Performed By: #### C BC #### [facility] [address] [place] [address] Dr. Ling Martin Creatinine [Mass/Vol] 1.02 mg/dL Normal 0.55-1.02 [facility] Comment on above: Performed By: #### C BC #### [facility] [address] [place] [address] Dr. Ling Martin EGFR-AF IRISH >60 Normal >=60 [facility] Comment on above: Performed By: #### C BC #### [facility] [address] [place] [address] Dr. Ling Martin EGFR-NON AF IRISH 58 mL/min/1.73m2 Critically low >=60 [facility] Comment on above: Performed By: #### C BC #### [facility] [address] [place] [address] Dr. Ling Martin Glucose [Mass/Vol] 101 mg/dL Normal 74-106 [facility] Comment on above: Performed By: #### C BC #### [facility] [address] [place] [address] Dr. Ling Martin Potassium [Moles/Vol] 4.2 mmol/L Normal 3.5-5.1 [facility] Comment on above: Performed By: #### C BC #### [facility] [address] [place] [address] Dr. Ling Martin Sodium [Moles/Vol] 139 mmol/L Normal 136-145 [facility] Comment on above: Performed By: #### C BC #### [facility] [address] [place] [address] Dr. Ling Martin Urea nitrogen [Mass/Vol] 17.0 mg/dL Normal 7.0-18.0 [facility] Comment on above: Performed By: #### C BC #### [facility] [address] [place] [address] Dr. Ling Martin Urea nitrogen/Creatinine [Mass ratio] 16.7 mg/mg Normal [facility] Comment on above: Performed By: #### C BC #### [facility] [address] [place] [address] Dr. Ling Martin URINE MICROSCOPIC ONLYon BACTERIA MODERATE Abnormal NONE SEEN [facility] Comment on above: Performed By: #### E MICHELER UMICRO #### [facility] [address] [place] [address] Dr. Ling Martin Bacteria identified Cx Nom (U) INDICATED Normal [facility] Comment on above: Performed By: #### E RUR, UMICRO #### [facility] [address] [place] [address] Dr. Ling Martin CAST NONE SEEN Normal NONE SEEN [facility] Comment on above: Performed By: #### E RUR UMICRO #### [facility] [address] [address] [address] Ling Martin Crystals LM Nom (Urine sed) NONE SEEN Normal NONE SEEN [facility] Comment on above: Performed By: #### Yelitza WHITTAKER UMICRO #### [facility] [address] [address] [address] Ling Martin Epithelial cells LM Ql (Urine sed) MODERATE Abnormal NONE SEEN /RARE [facility] Comment on above: Performed By: #### Yelitza WHITTAKER UMICRO #### [facility] [address] [address] [address] Ling Martin MUCOUS NONE SEEN Normal NONE SEEN [facility] Comment on above: Performed By: #### Yelitza WHITTAKER UMICRO #### [facility] [address] [place] [address] Dr. Ling Martin RBC 0-2 Normal 0-2 [facility] Comment on above: Performed By: #### Yelitza WHITTAKER UMICRO #### [facility] [address] [place] [address] Dr. Ling Martin WBC 2-5 Abnormal NONE SEEN [facility] Comment on above: Performed By: #### Yelitza WHITTAKER UMICRO #### [facility] [address] [place] [address] Dr. Ling Martin CORTISOLon 06-25-2022 Cortisol 6.7 ug/dL Normal 6.2-19.4 [facility] Comment on above: Result Comment: Satish sosa Note: The reference interval and flagging for this test is for an AM collection. If this is a PM collection please use: Cortisol PM: 2.3-11.9 Performed By: #### Yelitza WHITTAKER UMICRO #### [facility] [address] [place] [address] Dr. Ling Martin ECHO LIMITED STUDYon 023 ECHO LIMITED STUDY Patient: NIALL MORFIN Exam Date: 06/24/2022 : 1975 Gender:F Ordering : DR FARHAT PINEDA . Admission #: [id number] Family : Order #: [id number] CLICK HERE TO VIEW EXAM ECHOCARDIOGRAM REPORT [...] Flynn M.D. 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 Gastric Acid Secretion Medical Information Officer - Proton Pump Inhibitors (PPIs) promethazine (PHENERGAN) 25 mg tablet Take 25 mg by mouth four times daily as needed. Antihistamine - 1st Generation - Phenothiazines Syringe with Needle, Safety (EASY TOUCH SHEATHLOCK SYRG-NDL) 3 mL 25 gauge x 1 syrg Weekly methotrexate injections, monthly vit b12 injections as instructed Medical Supplies and DME - [place] and Syringes thiamine (VITAMIN B-1) 100 mg [...] and BiPAP (more content not included)... Normal [facility] PAP TESTon 06-18-2022 Case Report Gynecologic Cytology Report Case: [id number] Authorizing Provider: Eleanor Kenny DO Collected: 06/11/2022 12:41 PM Ordering Location: CB/Gynecology Received: 06/12/2022 05:13 AM First Screen: Chiara Salguero, CT, ASCP Rescreen: Kathy Otoole, ASHLEY, ASCP Specimen: Pap Test, ThinPrep, Cervix [facility] Clinical History Routine Exam [facility] Cytology Interpretation Negative [facility] FINAL DIAGNOSIS A - Cervix Satisfactory for interpretation Negative for Intraepithelial lesion or malignancy. [facility] HPV Reflex Auto HPV [facility] LMP 04/06/2022 [facility] Pap Disclaimer The Pap Smear is a screening test for cervical cancer. False negative results occur with all screening tests, emphasizing the need for rescreening at recommended intervals, and clinical correlation. [facility] PAP Help Desk Internship Comment This specimen has be en analyzed by the ThinPrep Imaging System, an automated imaging and review system, which assists the laboratory in evaluating cells on ThinPrep Pap tests. Following automated imaging, selected rojas from every slide are reviewed by a software test specialist. [facility] Performing Lab Technical component, software test specialist screening performed at [facility], [address], [facility] [address] CLIA# [id number] Diagnostic interpretation performed at [facility], [address] [place] [address] CLIA# [id number] Inside Sales Executive: Moshe Craft M.D. [facility] C peptide Yuriy-Jose 06-16 C peptide [Mass/Vol] 2.20 ng/mL Normal 0.81-3.85 [facility] Comment on above: Order Comment: Speci men Type: BLOOD SPECIMEN Ordering Facility: [facility] Address: [address] [place] [address] Performed By: #### 1 989-3 #### [facility] CLIA [id number] [address] [place] [address] [place] CBC W Auto Differential pane l (Bld)on 06-16-2022 Basophils (Bld) [#/Vol] 0.04 10*3/uL Normal <0.11 [facility] Comment on above: Order Comment: Speci men Type: BLOOD SPECIMEN Ordering Facility: [facility] Address: [address] [place] [address] Performed By: #### 1 989-3 #### [facility] CLIA [id number] [address] [place] [address] [place] Basophils/100 WBC (Bld) 0.5 % Normal [facility] Comment on above: Order Comment: Speci men Type: BLOOD SPECIMEN Ordering Facility: [facility] Address: [address] [place] [address] Performed By: #### 1 989-3 #### [facility] CLIA [id number] [address] [place] [address] [place] Differential cell count method Nom (Bld) Auto Normal [facility] Comment on above: Order Comment: Speci men Type: BLOOD SPECIMEN Ordering Facility: [facility] Address: [address] [place] [address] Performed By: #### 1 989-3 #### [facility] CLIA [id number] [address] [place] [address] [place] Eosinophils (Bld) [#/Vol] 0.16 10*3/uL Normal <0.46 [facility] Comment on above: Order Comment: Speci men Type: BLOOD SPECIMEN Ordering Facility: [facility] Address: [address] [place] [address] Performed By: #### 1 989-3 #### [facility] CLIA [id number] [address] [place] [address] [place] Eosinophils/100 WBC (Bld) 2.1 % Normal [facility] Comment on above: Order Comment: Speci men Type: BLOOD SPECIMEN Ordering Facility: [facility] Address: [address] [place] [address] Performed By: #### 1 989-3 #### [facility] CLIA [id number] [address] [place] [address] [place] Erythrocyte distribution width (RBC) [Ratio] 13.4 % Normal 11.5-15.0 [facility] Comment on above: Order Comment: Speci men Type: BLOOD SPECIMEN Ordering Facility: [facility] Address: [address] [place] [address] Performed By: #### 1 989-3 #### [facility] CLIA [id number] [address] [place] [address] [place] Hematocrit (Bld) [Volume fraction] 43.2 % Normal 36.0-46.0 [facility] Comment on above: Order Comment: Speci men Type: BLOOD SPECIMEN Ordering Facility: [facility] Address: [address] [place] [address] Performed By: #### 1 989-3 #### [facility] CLIA [id number] [address] [place] [address] [place] Hemoglobin (Bld) [Mass/Vol] 13.4 g/dL Normal 11.5-15.5 [facility] Comment on above: Order Comment: Speci men Type: BLOOD SPECIMEN Ordering Facility: [facility] Address: [address] [place] [address] Performed By: #### 1 989-3 #### [facility] CLIA [id number] [address] [place] [address] [place] Immature granulocytes (Bld) [#/Vol] 0.05 10*3/uL Normal <0.10 [facility] Comment on above: Order Comment: Speci men Type: BLOOD SPECIMEN Ordering Facility: [facility] Address: [address] [place] [address] Performed By: #### 1 989-3 #### [facility] CLIA [id number] [address] [place] [address] [place] Immature granulocytes/100 WBC (Bld) 0.6 % Normal [facility] Comment on above: Order Comment: Speci men Type: BLOOD SPECIMEN Ordering Facility: [facility] Address: [address] [place] [address] Performed By: #### 1 989-3 #### [facility] CLIA [id number] [address] [place] [address] [place] Lymphocytes (Bld) [#/Vol] 2.21 10*3/uL Normal 1.00-4.00 [facility] Comment on above: Order Comment: Speci men Type: BLOOD SPECIMEN Ordering Facility: [facility] Address: [address] [place] [address] Performed By: #### 1 989-3 #### [facility] CLIA [id number] [address] [place] [address] [place] Lymphocytes/100 WBC (Bld) 28.6 % Normal [facility] Comment on above: Order Comment: Speci men Type: BLOOD SPECIMEN Ordering Facility: [facility] Address: [address] [place] [address] Performed By: #### 1 989-3 #### [facility] CLIA [id number] [address] [place] [address] [place] MCH (RBC) [Entitic mass] 28.8 pg Normal 26.0-34.0 [facility] Comment on above: Order Comment: Speci men Type: BLOOD SPECIMEN Ordering Facility: [facility] Address: [address] [place] [address] Performed By: #### 1 989-3 #### [facility] CLIA [id number] [address] [place] [address] [place] MCHC (RBC) [Mass/Vol] 31.0 g/dL Normal 30.5-36.[address] [facility] Comment on above: Order Comment: Speci men Type: BLOOD SPECIMEN Ordering Facility: [facility] Address: [address] [place] [address] Performed By: #### 1 989-3 #### [facility] CLIA [id number] [address] [place] [address] [place] MCV (RBC) [Entitic vol] 92.7 fL Normal 80.0-100.0 [facility] Comment on above: Order Comment: Speci men Type: BLOOD SPECIMEN Ordering Facility: [facility] Address: [address] [place] [address] Performed By: #### 1 989-3 #### [facility] CLIA [id number] [address] [place] [address] [place] Monocytes (Bld) [#/Vol] 0.59 10*3/uL Normal <0.87 [facility] Comment on above: Order Comment: Speci men Type: BLOOD SPECIMEN Ordering Facility: [facility] Address: [address] [place] [address] Performed By: #### 1 989-3 #### [facility] CLIA [id number] [address] [place] [address] [place] Monocytes/100 WBC (Bld) 7.6 % Normal [facility] Comment on above: Order Comment: Speci men Type: BLOOD SPECIMEN Ordering Facility: [facility] Address: [address] [place] [address] Performed By: #### 1 989-3 #### [facility] CLIA [id number] [address] [place] [address] [place] Neutrophils (Bld) [#/Vol] 4.67 10*3/uL Normal 1.45-7.50 [facility] Comment on above: Order Comment: Speci men Type: BLOOD SPECIMEN Ordering Facility: [facility] Address: [address] [place] [address] Performed By: #### 1 989-3 #### [facility] CLIA [id number] [address] [place] [address] [place] Neutrophils/100 WBC (Bld) 60.6 % Normal [facility] Comment on above: Order Comment: Speci men Type: BLOOD SPECIMEN Ordering Facility: [facility] Address: [address] [place] [address] Performed By: #### 1 989-3 #### [facility] CLIA [id number] [address] [place] [address] [place] Nucleated RBC (Bld) [#/Vol] 10*3/uL Normal <0.01 [facility] Comment on above: Order Comment: Speci men Type: BLOOD SPECIMEN Ordering Facility: [facility] Address: [address] [place] [address] Performed By: #### 1 989-3 #### [facility] CLIA [id number] [address] [place] [address] [place] Nucleated RBC/100 WBC (Bld) [Ratio] 0.0 /100 WBC Normal [facility] Comment on above: Order Comment: Speci men Type: BLOOD SPECIMEN Ordering Facility: [facility] Address: [address] [place] [address] Performed By: #### 1 989-3 #### [facility] CLIA [id number] [address] [place] [address] [place] Platelet mean volume (Bld) [Entitic vol] 12.0 fL Normal 9.0-12.7 [facility] Comment on above: Order Comment: Speci men Type: BLOOD SPECIMEN Ordering Facility: [facility] Address: [address] [place] [address] Performed By: #### 1 989-3 #### [facility] CLIA [id number] [address] [place] [address] [place] Platelets (Bld) [#/Vol] 217 10*3/uL Normal 150-400 [facility] Comment on above: Order Comment: Speci men Type: BLOOD SPECIMEN Ordering Facility: [facility] Address: [address] [place] [address] Performed By: #### 1 989-3 #### [facility] CLIA [id number] [address] [place] [address] [place] RBC (Bld) [#/Vol] 4.66 10*6/uL Normal 3.90-5.20 [facility] Comment on above: Order Comment: Speci men Type: BLOOD SPECIMEN Ordering Facility: [facility] Address: [address] [place] [address] Performed By: #### 1 989-3 #### [facility] CLIA [id number] [address] [place] [address] [place] WBC (Bld) [#/Vol] 7.72 10*3/uL Normal 3.70-11.00 [facility] Comment on above: Order Comment: Speci men Type: BLOOD SPECIMEN Ordering Facility: [facility] Address: [address] [place] [address] Performed By: #### 1 989-3 #### [facility] CLIA [id number] [address] [place] [address] [place] CNOVon 06-16-2022 CNOV Office Visit ([facility]) -- ESME MORFIN ([id number]) 1975 F Date Time Provider Department 06/16/22 3:30 PM LUIS F BARRAZA [facility] During your visit today, we recorded the following information about you: Pulse Blood pressure Weight 84/minute 135/77 102.9 kg Luis F Barraza APRN.[facility] 06/18/2022 6:17 PM Signed [facility] SE[facility] OF [facility]IONAL CARDIOLOGY OUTPATIENT VISIT DATE June 16, 2022 OUTPATIENT VISIT TYPE Established PRIMARY CARE PHYSICIAN: Farhat Pineda MD [address] [place] [address] CC: edema, palpitations Elements of this note, [...] which is at an outside hospital. A [employer] heart monitor was recently placed and the patient is currently wearing the monitor. Also, laboratory studies were recently ordered and are in process. Her weight had been quite stable for the past year and a half however she has gained 14 pounds in the past week according to [facility] weights in synopsis. She currently denies shortness [...] reviewed and shows normal LVEF and mild vjsxpb-hzfabc-yuyoonxjb valve regurgitation without evidence of significant structural [...] or worsen Luis F Barraza, RN, MSN, NUCLEAR CHEMISTRY TECHNICIAN-C Adult Nurse Practitioner Rowan Verma Department of Cardiovascular Medicine [facility] Heart, Vascular, Thoracic [facility] PHYSICAL EXAMINATION: BP 135/77 Pulse 84 Wt 102.9 kg (226 lb 14.4 oz) LMP 04/06/2022 (more content not included)... Normal [facility] Comprehensive metabolic 2000 panelon 06-16-2022 Albumin [Mass/Vol] 4.2 g/dL Normal 3.9-4.9 [facility] Comment on above: Order Comment: Speci men Type: BLOOD SPECIMEN Ordering Facility: [facility] Address: , , Performed By: #### 0 3754-5 #### [facility] CLIA [id number] [address] [place] [address] [place] ALP [Catalytic activity/Vol] 109 U/L Normal 34-123 [facility] Comment on above: Order Comment: Speci men Type: BLOOD SPECIMEN Ordering Facility: [facility] Address: , , Performed By: #### 5 5454-3 #### [facility] CLIA [id number] [address] [place] [address] [place] ALT [Catalytic activity/Vol] 42 U/L High 7-38 [facility] Comment on above: Order Comment: Speci men Type: BLOOD SPECIMEN Ordering Facility: [facility] Address: , , Performed By: #### 5 5454-3 #### [facility] CLIA [id number] [address] [place] [address] [place] Anion gap [Moles/Vol] 11 mmol/L Normal 9-[address] [facility] Comment on above: Order Comment: Speci men Type: BLOOD SPECIMEN Ordering Facility: [facility] Address: , , Performed By: #### 5 5454-3 #### [facility] CLIA [id number] [address] [place] [id number] [place] AST [Catalytic activity/Vol] 27 U/L Normal 13-35 [facility] Comment on above: Order Comment: Speci men Type: BLOOD SPECIMEN Ordering Facility: [facility] Address: , , Performed By: #### 5 5454-3 #### [facility] CLIA [id number] [address] [place] [address] [place] Bilirubin [Mass/Vol] 0.5 mg/dL Normal 0.2-1.3 [facility] Comment on above: Order Comment: Speci men Type: BLOOD SPECIMEN Ordering Facility: [facility] Address: , , Performed By: #### 5 5454-3 #### [facility] CLIA [id number] [address] [place] [address] [place] Calcium [Mass/Vol] 9.3 mg/dL Normal 8.5-10.2 [facility] Comment on above: Order Comment: Speci men Type: BLOOD SPECIMEN Ordering Facility: External [facility] Address: , , Performed By: #### 5 5454-3 #### [facility] CLIA [id number] [address] [place] [address] [place] Chloride [Moles/Vol] 105 mmol/L Normal 97-105 [facility] Comment on above: Order Comment: Speci men Type: BLOOD SPECIMEN Ordering Facility: [facility] Address: , , Performed By: #### 5 5454-3 #### [facility] CLIA [id number] [address] [place], [place] [address] [place] CO2 [Moles/Vol] 24 mmol/L Normal 22-30 [facility] Comment on above: Order Comment: Speci men Type: BLOOD SPECIMEN Ordering Facility: External [facility]mitter Address: , , Performed By: #### 5 5454-3 #### [facility] CLIA [id number] [address] [place], [place] [address] [place] Creatinine [Mass/Vol] 0.95 mg/dL Normal 0.58-0.[address] [facility] Comment on above: Order Comment: Speci men Type: BLOOD SPECIMEN Ordering Facility: External Submitter Address: , , Performed By: #### 5 5454-3 #### [facility] CLIA [id number] [address] [place] [id number] [place] ESTIMATED GLOMERULAR FILTRATION RATE 74 mL/min/1.73m??? Normal >=60 [facility] Comment on above: Order Comment: Panfilo [...] GFR. Performed By: #### 5 5454-3 #### [facility] CLIA [id number] [address] [place] [address] [place] Glucose [Mass/Vol] 96 mg/dL Normal 74-99 [facility] Comment on above: Order Comment: Panfilo horne Type: BLOOD SPECIMEN Ordering Facility: External Submitter Address: , , Result Comment: The [place] Diabetes Association (ADA) provides guidance for cutoff [...] Standards of Medical Care in Diabetes 2016, [place] Diabetes Association. Diabetes Care. 2016.39(Suppl 1). Performed By: #### 5 5454-3 #### [facility] CLIA [id number] [address] [place] [id number] [place] Potassium [Moles/Vol] 3.9 mmol/L Normal 3.7-5.[address] [facility] Comment on above: Order Comment: Edilbertoi coleen Type: BLOOD SPECIMEN Ordering Facility: External [facility]mitter Address: , , Performed By: #### 5 5454-3 #### [facility] CLIA [id number] [address] [place] [address] [place] Protein [Mass/Vol] 6.8 g/dL Normal 6.3-8.0 [facility] Comment on above: Order Comment: Speci men Type: BLOOD SPECIMEN Ordering Facility: External [facility] Address: , , Performed By: #### 5 5454-3 #### [facility] CLIA [id number] [address] [place] [address] [place] Sodium [Moles/Vol] 140 mmol/L Normal 136-144 [facility] Comment on above: Order Comment: Speci men Type: BLOOD SPECIMEN Ordering Facility: External Submitter Address: , , Performed By: #### 5 5454-3 #### [facility] CLIA [id number] [address] [place] [address] [place] Urea nitrogen [Mass/Vol] 7 mg/dL Normal 7-21 [facility] Comment on above: Order Comment: Edilbertoi men Type: BLOOD SPECIMEN Ordering Facility: External Submitter Address: , , Performed By: #### 5 5454-3 #### [facility] IA [id number] [address] [place] [address] [place] [id number] 06-16-2022 ECG01 Ventricular Rate : 8 1 BPM Atrial Rate : 81 BPM P-R Interval : 118 ms QRS Duration : 90 ms Q-T Interval : 404 ms QTC Calculation(Bazett) : 469 ms Calculated P [place] : 3 degrees Calculated R [place] : -51 degrees Calculated T [place] : 70 degrees NORMAL SINUS RHYTHM LEFT ANTERIOR FASCICULAR BLOCK ABNORMAL ECG Confirmed by NATHAN MARIE M.D. ([id number]) on 06/17/2022 10:48:37 AM NAME : ESME MORFIN PID : [id number] : 1975 Gender : Female Race : ORD : Procedure Date : Jun 16 2022 15:32:43 Edit Date : Jun 17 2022 10:48:39 Diagnosis: NORMAL SINUS RHYTHM LEFT ANTERIOR FASCICULAR BLOCK ABNORMAL ECG Confirmed by NATHAN MARIE M.D. ([id number]) on 06/17/2022 10:48:37 AM Test Reason : Location : 168 : [facility] Overread By : NATHAN MARIE M.D. Edited By : NATHAN MARIE M.D. Referred By : WILLIE, Acquired by : , Normal [facility] HPV W/GENOTYPE THIN PREPon 0 06-16-2022 HPV 16 Ag Ql (Unsp spec) Negative Negative for HPV DNA high risk type 16 by PCR [facility] HPV 18 Ag Ql (Unsp spec) Negative Negative for HPV DNA high risk type 18 by PCR [facility] HPV 31+33+35+39+45+51+52+5 6+58+59+66+68 DNA AIXA+probe Ql (Cvx) Negative for HPV DNA high risk types: 31,33,35,39,45,51,52,56,58 ,59,66,68 by PCR. Negative for HPV DNA high risk types: 31,33,35,39 ,45,51,52,5 6,58,59,66, 68 by PCR. [facility] HbA1c (Bld)on 06-16-2022 Average glucose Estimated from glycated hemoglobin (Bld) [Mass/Vol] 131 mg/dL Normal [facility] Comment on above: Order Comment: Speci men Type: BLOOD SPECIMEN Ordering Facility: External Submitter Address: , , Result Comment: eAG: (Estimated average glucose) is a calculated value from HgbA1c and is medical detail representative of the average blood glucose level in the last 2-3 month period. Performed By: #### 5 5454-3 #### [facility] CLIA [id number] [address] [place] [address] [place] HbA1c (Bld) [Mass fraction] 6.2 % High 4.3-5.6 [facility] Comment on above: Order Comment: Speci [...] diabetes. Performed By: #### 5 5454-3 #### [facility] CLIA [id number] [address] [place] [address] [place] Insulin SerPl-aCncon 023 Insulin Qn 5.8 u[IU]/mL Normal 3.0-25.0 [facility] Comment on above: Order Comment: Panfilo horne Type: BLOOD SPECIMEN Ordering Facility: [facility] Address: [address] [place] [address] Performed By: #### 1 989-3 #### [facility] CLIA [id number] [address] [place] [address] [place] Magnesium SerPl-mCncon 06-16 Magnesium [Mass/Vol] 1.9 mg/dL Normal 1.7-2.3 [facility] Comment on above: Order Comment: Panfilo horne Type: BLOOD SPECIMEN Ordering Facility: External Submitter Address: , , Performed By: #### 3 016-3, 10663-3 #### [facility] CLIA [id number] [address] [place] [address] [place] NT-proBNP SerPl-mCncon 06-16 Natriuretic peptide.B prohormone N-Terminal [Mass/Vol] 331 pg/mL High <125 [facility] Comment on above: Order Comment: Panfilo horne Type: BLOOD SPECIMEN Ordering Facility: External Submitter Address: , , Performed By: #### 5 5454-3 #### [facility] CLIA [id number] [address] [place] [address] [place] T3 SerPl-mCncon 06-16-2022 T3 [Mass/Vol] 129 ng/dL Normal 79-165 [facility] Comment on above: Order Comment: Speci coleen Type: BLOOD SPECIMEN Ordering Facility: External Submitter Address: , , Performed By: #### 5 5454-3 #### [facility] CLIA [id number] [address] [place] [address] [place] T4 SerPl-mCncon 06-16-2022 T4 [Mass/Vol] 6.7 ug/dL Normal 5.5-10.2 [facility] Comment on above: Order Comment: Speci men Type: BLOOD SPECIMEN Ordering Facility: External Submitter Address: , , Performed By: #### 5 5454-3 #### [facility] IA [id number] [address] [place] [address] [place] THYROGLOBULIN ABon Thyroglobulin Ab Qn 3.5 [IU]/mL Normal <4.0 [facility] Comment on above: Order Comment: Edilbertoi coleen Type: BLOOD SPECIMEN Ordering Facility: External Submitter Address: , , Result Comment: The Thyroglobulin Antibody test was performed using the [employer] DXI paramagnetic particle chemiluminescent immunoassay method. Results obtained with different assay methods or kits cannot be used interchangeably. Performed By: #### 5 5454-3 #### [facility] IA [id number] [address] [place] [address] [place] THYROID PEROXIDASE ANTIBODY BLOODon 06-16-2022 TPO Ab Qn 216.6 [IU]/mL High <5.6 [facility] Comment on above: Order Comment: Panfilo horne Type: BLOOD SPECIMEN Ordering Facility: External Submitter Address: , , Result Comment: Thyr oid Peroxidase Antibody test is used as an aid in diagnosis of autoimmune thyroid disease. Clinical correlation is required. Performed By: #### 3 016-3, 46938-2 #### [facility] CLIA [id number] [address] [place] [address] [place] TSH SerPl-aCncon 06-16-2022 TSH Qn 2.690 m[IU]/L Normal 0.270-4.200 [facility] Comment on above: Order Comment: Speci [...] E, et al. 2017 Guidelines of the [place] Thyroid Association for the Diagnosis and Management of Thyroid Disease during and the . Thyroid, 2017:27:3:315-389. Performed By: #### 3 016-3, 93531-0 #### [facility] CLIA [id number] [address] [place] [address] OF [facility] CNPAndressa 06-15-2022 CNPN Telephone ([facility]) -- ESME MORFIN ([id number]) 1975 F Date Time Provider Department 06/15/22 [...] nurse triage. She can be reached at [phone]. Please advise. 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 Hist (more content not included)... Normal [facility] HPV W/GENOTYPE THIN PREPon 0 06-11-2022 HPV 16 Ag Ql (Unsp spec) Negative Normal Negative for HPV DNA high risk type 16 by PCR [facility] Comment on above: Order Comment: Speci men Type: BLOOD SPECIMEN Ordering Facility: External Submitter Address: , , Performed By: #### 5 5454-3 #### [facility] CLIA [id number] [address] [place] [address] [place] HPV 18 Ag Ql (Unsp spec) Negative Normal Negative for HPV DNA high risk type 18 by PCR [facility] Comment on above: Order Comment: Speci men Type: BLOOD SPECIMEN Ordering Facility: External Submitter Address: , , Performed By: #### 5 5454-3 #### [facility] CLIA [id number] [facility] [place] [address] [place] HPV 31+33+35+39+45+51+52+5 6+58+59+66+68 DNA AIXA+probe Ql (Cvx) Negative for HPV DNA high risk types: 31,33,35,39,45,51,52,56,58 ,59,66,68 by PCR. Normal Negative for HPV DNA high risk types: 31,33,35,39 ,45,51,52,5 6,58,59,66, 68 by PCR. [facility] Comment on above: Order Comment: Speci men Type: BLOOD SPECIMEN Ordering Facility: External Submitter Address: , , Performed By: #### 5 [id number] #### [facility] CLIA [id number] [address] [place] [address] [place] PAP TESTon 06-11-2022 CASE REPORT Normal [facility] Comment on above: Order Comment: Speci men Type: FLUID SPECIMENOrdering Facility: [facility] Address: [address] [place] [address] Result Comment: Gyne cologic Cytology Report Case: [id number] Authorizing Provider: Eleanor Kenny DO Collected: 06/11/2022 12:41 PM Ordering Location: CB/Gynecology Received: 06/12/2022 05:13 AM First Screen: Chiara Salguero, [place], ASCP Rescreen: Kathy Otoole, CT, ASCP Specimen: Pap Test, ThinPrep, Cervix Performed By: #### L [id number] ####[facility] [id number] [place] [address] [place] CLINICAL HISTORY, CYTOLOGY, PUBLIC INFORMATION RELATIONS MANAGER Routine Exam Normal [facility] Comment on above: Order Comment: Speci men Type: FLUID SPECIMENOrdering Facility: [facility] Address: [address] [place], [place] [id number] Result Comment: h/o CIN1 Performed By: #### L [id number] ####[facility] [id number] [place] [address] [place] CYTOLOGY INTERPRETATION PAP Normal [facility] Comment on above: Order Comment: Speci men Type: FLUID SPECIMENOrdering Facility: [facility] Address: [address] [address] Result Comment: Nega tive for Intraepithelial lesion or malignancy. Performed By: #### L [id number] ####[facility] [id number] [place] [address] [place] FINAL DIAGNOSIS A - Cervix Normal [facility] Comment on above: Order Comment: Speci men Type: FLUID SPECIMENOrdering Facility: [facility] Address: [address] [place] [address] Result Comment: Sati sfactory for interpretation Negative for Intraepithelial lesion or malignancy. Performed By: #### L [id number] ####[facility] [id number] [place] [address] [place] FINAL PERFORMING LAB Normal [facility] Comment on above: Order Comment: Speci men Type: FLUID SPECIMENOrdering Facility: [facility] Address: [address] [address] Result Comment: Tech nical component, software test specialist screening performed at [facility], [address] [id number] CLIA# [id number] Diagnostic interpretation performed at [facility], [address] [id number] CLIA# [id number] Inside Sales Executive: Moshe Craft M.D. Performed By: #### L [id number] ####[facility] [id number] [place] [address] [place] HPV REFLEX Auto HPV Normal [facility] Comment on above: Order Comment: Speci men Type: FLUID SPECIMENOrdering Facility: [facility] Address: [address] [place] [address] Performed By: #### L [id number] ####[facility] [id number] [place] [address] [place] LMP 04/06/2022 Normal [facility] Comment on above: Order Comment: Speci men Type: FLUID SPECIMENOrdering Facility: [facility] Address: [address] [place] [address] Performed By: #### L [id number] ####[facility] [id number] [place] [address] [place] PAP DISCLAIMER COMMENT The Pap Smear is a screening test for cervical cancer. False negative results occur with all screening tests, emphasizing the need for rescreening at recommended intervals, and clinical correlation. Normal [facility] Comment on above: Order Comment: Speci men Type: FLUID SPECIMENOrdering Facility: [facility] Address: [address] [place] [address] Performed By: #### L [id number] ####[facility] [id number] [place] [address] [place] PAP STORE WORKER COMMENT This specimen has be en analyzed by the ThinPrep Imaging System, an automated imaging and review system, which assists the laboratory in evaluating cells on ThinPrep Pap tests. Following automated imaging, selected rojas from every slide are reviewed by a software test specialist. Normal [facility] Comment on above: Order Comment: Speci men Type: FLUID SPECIMENOrdering Facility: [facility] Address: [address] [place], [place] [id number] Performed By: #### L [id number] ####[facility] [id number] [place] [address] [place] UA DIP, URINE (POC)on 2022 BILIRUBIN UA (POCT) Negative Negative [facility] CLARITY UA (POCT) [facility] COLOR UA (POCT) Dark yellow [facility] GLUCOSE UA (POCT) Negative Negative mg/dL [facility] HEMOGLOBIN/BLOOD UA (POCT) Negative Negative [facility] KETONE UA (POCT) Negative Negative mg/dL [facility] LEUKOCYTES UA (POCT) Negative Negative [facility] NITRITE UA (POCT) Negative Negative [facility] PH UA (POCT) 5.5 4.5 - 8.0 [facility] Protein Ql (U) Negative Negative mg/dL [facility] SPECIFIC GRAVITY UA (POCT) 1.025 1.005 - 1.030 [facility] UROBILINOGEN UA (POCT) 2.0 E.U./dL Abnormal Maame l E.U./dL [facility] US GWEN DOP LEG BILon 023 [...] FACUNDO DE LUNA Date: 2022-06-08 18:40 Normal [facility] ECHOCARDIO M/2D COMPLETEon 0 04-02-2022 ECHOCARDIO M/2D COMPLETE Patient: ESME MORFIN Exam Date: 04/02/2022 : 1975 Gender:F Ordering : DR FARHAT PINEDA . Admission #: [id number] Family : Order #: [id number] CLICK HERE TO VIEW EXAM ECHOCARDIOGRAM REPORT [...] Area (VTI): 2.74 cm2, 2.77 cm2 Deceleration [place]: 1.50 m/s2 Pressure Half-Time: 803.45 ms Peak [...] M.D. on 04/03/2022 at 14:52 Normal [facility] INSULINon 04-01-2022 Insulin 12.5 uIU/mL Normal 2.6-24.9 [facility] Comment on above: Performed By: #### E RUR, UMICRO #### [facility] [address] [address] [address] Ling Martin OCC BLD IMMUNO SCREENon 03-12 OCCULT BLOOD Negative Normal NEGATIVE [facility] Comment on above: Performed By: #### P OCGLUC #### [facility] [address] [address] [address] Ling Martin CBC AUTO DIFFon 03-31-2022 BASO # 0.1 103/ul Normal 0.0-0.1 [facility] Comment on above: Performed By: #### P OCGLUC #### [facility] [address] [place] [address] Dr. Ling Martin Basophils/100 WBC (Bld) 0.7 % Normal 0.2-2.0 [facility] Comment on above: Performed By: #### P OCGLUC #### [facility] [address] [place] [address] Dr. Ling Martin EO # 0.3 103/ul Normal 0.0-0.7 [facility] Comment on above: Performed By: #### P OCGLUC #### [facility] [address] [place] [address] Dr. Ling Martin Eosinophils/100 WBC (Bld) 4.3 % Normal 0.9-7.0 [facility] Comment on above: Performed By: #### P OCGLUC #### [facility] [address] [place] [address] Dr. Ling Martin Erythrocyte distribution width (RBC) [Ratio] 13.0 % Normal 11.0-15.0 [facility] Comment on above: Performed By: #### P OCGLUC #### [facility] [address] [place] [address] Dr. Ling Martin Hematocrit (Bld) [Volume fraction] 39.6 % Normal 36.0-48.0 [facility] Comment on above: Performed By: #### P OCGLUC #### [facility] [address] [place] [address] Dr. Ling Martin Hemoglobin (Bld) [Mass/Vol] 12.9 g/dL Normal 12.0-16.0 [facility] Comment on above: Performed By: #### P OCGLUC #### [facility] [address] [place] [address] Dr. Ling Martin IG # 0.03 10e3/ul Normal 0.00-0.03 [facility] Comment on above: Performed By: #### P OCGLUC #### [facility] [address] [place] [address] Dr. Ling Martin IG % 0.4 % Normal 0.0-0.5 [facility] Comment on above: Performed By: #### P OCGLUC #### [facility] [address] [place] [address] Dr. Ling Martin LYMPH # 2.2 103/ul Normal 1.2-3.8 [facility] Comment on above: Performed By: #### P OCGLUC #### [facility] [address] [place] [address] Dr. Ling Martin Lymphocytes/100 WBC (Bld) 30.6 % Normal 20.5-60.0 [facility] Comment on above: Performed By: #### P OCGLUC #### [facility] [address] [place] [address] Dr. Ling Martin MANUAL DIFF REQ NO Normal [facility] Comment on above: Performed By: #### P OCGLUC #### [facility] [address] [place] [address] Dr. Ling Martin MCH (RBC) [Entitic mass] 28.8 pg Normal 26.7-34.0 [facility] Comment on above: Performed By: #### P OCGLUC #### [facility] [address] [place] [address] Dr. Ling Martin MCHC (RBC) [Mass/Vol] 32.6 g/dL Normal 29.9-35.2 [facility] Comment on above: Performed By: #### P OCGLUC #### [facility] [address] [place] [address] Dr. Ling Martin MCV (RBC) [Entitic vol] 88.4 fL Normal 81.0-99.0 [facility] Comment on above: Performed By: #### P OCGLUC #### [facility] [address] [place] [address] Dr. Ling Martin MONO # 0.5 103/ul Normal 0.3-0.8 [facility] Comment on above: Performed By: #### P OCGLUC #### [facility] [address] [place] [address] Dr. Ling Martin Monocytes/100 WBC (Bld) 7.1 % Normal 1.7-12.0 [facility] Comment on above: Performed By: #### P OCGLUC #### [facility] [address] [place] [address] Dr. Ling Martin NEUT # 4.0 103/ul Normal 1.4-6.5 [facility] Comment on above: Performed By: #### P OCGLUC #### [facility] [address] [place] [address] Dr. Ling Martin Neutrophils/100 WBC (Bld) 56.9 % Normal 43.0-75.0 [facility] Comment on above: Performed By: #### P OCGLUC #### [facility] [address] [place] [address] Dr. Ling Martin Platelet mean volume (Bld) [Entitic vol] 11.3 fL Normal 9.5-13.5 [facility] Comment on above: Performed By: #### P OCGLUC #### [facility] [address] [place] [address] Dr. Ling Martin PLT 226 103/ul Normal 150-450 [facility] Comment on above: Performed By: #### P OCGLUC #### [facility] [address] [place] [address] Dr. Ling Martin RBC 4.48 106/ul Normal 4.20-5.40 [facility] Comment on above: Performed By: #### P OCGLUC #### [facility] [address] [place] [address] Dr. Ling Martin WBC 7.0 103/ul Normal 4.0-11.0 [facility] Comment on above: Performed By: #### P OCGLUC #### [facility] [address] [place] [address] Dr. Ling Martin FREE THYROXINE INDEX T7on FTI 2.16 Normal 1.30-4.50 [facility] Comment on above: Performed By: #### C MP #### [facility] [address] [place] [address] Dr. Ling Martin T3U 30.0 % Normal 30.0-39.0 [facility] Comment on above: Performed By: #### C MP #### [facility] [address] [address] [address] Ling Martin T4 [Mass/Vol] 7.20 ug/dL Normal 4.80-13.90 [facility] Comment on above: Performed By: #### C MP #### [facility] [address] [address] [address] Ling Martin GLYCOHEMOGLOBIN A1Con 2022 ADA RECOMMENDATION SEE BELOW Normal [facility] Comment on above: Result Comment: ADA RECOMMENDED LIMIT 4.0 - 6.0 ADA THERAPEUTIC TARGET < 7.0 ACTION SUGGESTED > 7.0 Performed By: #### A 1C #### [facility] [address] [place] [address] Dr. Ling Martin Glucose [Mass/Vol] 134 mg/dL Normal [facility] Comment on above: Performed By: #### A 1C #### [facility] [address] [place] [address] Dr. Ling Martin HbA1c (Bld) [Mass fraction] 6.3 % Critically high 4.5-6.2 [facility] Comment on above: Performed By: #### A 1C #### [facility] [address] [place] [address] Dr. Ling Martin IRONon 03-31-2022 Iron [Mass/Vol] 86.0 ug/dL Normal 50.0-170.0 [facility] Comment on above: Performed By: #### E JAISON WHITTAKER #### [facility] [address] [place] [address] Dr. Ling Martin LIPID PROFILEon 03-31-2022 CHOL-HDL RATIO NORM SEE BELOW Normal [facility] Comment on above: Result Comment: 3.3 - 4.4 LOW RISK 4.4 - 7.1 AVERAGE RISK 7.1 - 11.0 MODERATE RISK >11.0 HIGH RISK Performed By: #### C MP #### [facility] [address] [place] [address] Dr. Ling Martin Cholesterol [Mass/Vol] 176 mg/dL Normal <=200 [facility] Comment on above: Performed By: #### C MP #### [facility] [address] [address] [address] Ling Martin Cholesterol in HDL [Mass/Vol] 53 mg/dL Normal 40-60 [facility] Comment on above: Performed By: #### C MP #### [facility] [address] [address] [address] Ling Martin Cholesterol in LDL [Mass/Vol] 99.8 mg/dL Normal [facility] Comment on above: Performed By: #### C MP #### [facility] [address] [address] [address] Ling Martin Cholesterol.total/Chol esterol in HDL [Mass ratio] 3.3 {ratio} Normal [facility] Comment on above: Performed By: #### C MP #### [facility] [address] [address] [address] Ling Martin HDL NORMAL > or = 60 mg/dl - LO W CARDIOVASCULAR RISK <40 mg/dl - HIGH CARDIOVASCULAR RISK Normal [facility] Comment on above: Performed By: #### C MP #### [facility] [address] [address] [address] Ling Martin LDL CALC NORMAL SEE BELOW Normal [facility] Comment on above: Result Comment: <100 mg/dl OPTIMAL 100 - 129 mg/dl NEAR OR ABOVE OPTIMAL 130 - 159 mg/dl BORDERLINE HIGH 160 - 189 mg/dl HIGH >190 mg/dl VERY HIGH Performed By: #### C MP #### [facility] [address] [address] [address] Ling Martin Triglyceride [Mass/Vol] 116 mg/dL Normal <=150 [facility] Comment on above: Performed By: #### C MP #### [facility] [address] [address] [address] Ling Martin VLDL CALC 23.2 mg/dL Normal [facility] Comment on above: Performed By: #### C MP #### [facility] [address] [address] [address] Ling Martin PROF 14(COMP METB)on 02-21-2 023 Albumin [Mass/Vol] 3.9 g/dL Normal 3.4-5.0 [facility] Comment on above: Performed By: #### C MP #### [facility] [address] [place] [address] Dr. Ling Martin Albumin/Globulin [Mass ratio] 1.1 {ratio} Normal [facility] Comment on above: Performed By: #### C MP #### [facility] [address] [place] [address] Dr. Ling Martin ALP [Catalytic activity/Vol] 168 U/L Critically high 46-116 [facility] Comment on above: Performed By: #### C MP #### [facility] [address] [place] [address] Dr. Ling Martin ALT [Catalytic activity/Vol] 57 U/L Normal 14-59 [facility] Comment on above: Performed By: #### C MP #### [facility] [address] [place] [address] Dr. Ling Martin Anion gap [Moles/Vol] 7.7 mmol/L Normal [facility] Comment on above: Performed By: #### C MP #### [facility] [address] [place] [address] Dr. Ling Martin AST [Catalytic activity/Vol] 25 U/L Normal 15-37 [facility] Comment on above: Performed By: #### C MP #### [facility] [address] [place] [address] Dr. Ling Martin Bilirubin [Mass/Vol] 0.4 mg/dL Normal 0.2-1.0 [facility] Comment on above: Performed By: #### C MP #### [facility] [address] [place] [address] Dr. Ling Martin Calcium [Mass/Vol] 9.1 mg/dL Normal 8.5-10.1 [facility] Comment on above: Performed By: #### C MP #### [facility] [address] [place] [address] Dr. Ling Martin Chloride [Moles/Vol] 107 mmol/L Normal 98-107 [facility] Comment on above: Performed By: #### C MP #### [facility] [address] [address] [address] Ling Martin CO2 [Moles/Vol] 29.3 mmol/L Normal 21.0-32.0 [facility] Comment on above: Performed By: #### C MP #### [facility] [address] [address] [address] Ling Martin Creatinine [Mass/Vol] 1.01 mg/dL Normal 0.55-1.02 [facility] Comment on above: Performed By: #### C MP #### [facility] [address] [address] [address] Ling Martin EGFR-AF IRISH >60 Normal >=60 [facility] Comment on above: Performed By: #### C MP #### [facility] [address] [place] [address] Dr. Ling Martin EGFR-NON AF IRISH 59 mL/min/1.73m2 Critically low >=60 [facility] Comment on above: Performed By: #### C MP #### [facility] [address] [address] [address] Ling Martin Globulin (S) [Mass/Vol] 3.5 g/dL Normal [facility] Comment on above: Performed By: #### C MP #### [facility] [address] [address] [address] Ling Martin Glucose [Mass/Vol] 81 mg/dL Normal 74-106 [facility] Comment on above: Performed By: #### C MP #### [facility] [address] [address] [address] Ling Martin Potassium [Moles/Vol] 4.0 mmol/L Normal 3.5-5.1 [facility] Comment on above: Performed By: #### C MP #### [facility] [address] [address] [address] Ling Martin Protein [Mass/Vol] 7.4 g/dL Normal 6.4-8.2 [facility] Comment on above: Performed By: #### C MP #### [facility] [address] [place] [address] Dr. Ling Martin Sodium [Moles/Vol] 140 mmol/L Normal 136-145 [facility] Comment on above: Performed By: #### C MP #### [facility] [address] [place] [address] Dr. Ling Martin Urea nitrogen [Mass/Vol] 16.0 mg/dL Normal 7.0-18.0 [facility] Comment on above: Performed By: #### C MP #### [facility] [address] [place] [address] Dr. Ling Martin Urea nitrogen/Creatinine [Mass ratio] 15.8 mg/mg Normal [facility] Comment on above: Performed By: #### C MP #### [facility] [address] [place] [address] Dr. Ling Martin TSHon 03-31-2022 TSH 1.930 uIU/mL Normal 0.358-3.740 [facility] Comment on above: Performed By: #### C MP #### [facility] [address] [place] [address] Dr. Ling Martin VITAMIN D 25 OHon 03-31-2022 VIT D 25-OH 37.7 ng/mL Normal [facility] Comment on above: Performed By: #### JAISON BETTS #### [facility] [address] [place] [address] Dr. Ling Martin VIT D RANGES SEE BELOW Normal [facility] Comment on above: Result Comment: <20 ng/mL Vit D deficient 20 - <30 ng/mL Vit D insufficient 30 - 100 ng/mL Vit D sufficient >100 ng/mL Potential Toxicity Performed By: #### JAISON BETTS #### [facility] [address] [place] [address] Dr. Ling Martin [facility]on SARS-CoV-2 (COVID-19) RNA AIXA+probe Ql (Unsp spec) Not detected Normal NOT DETECTED [facility] Comment on above: Result Comment: When diagnostic [...] for this test is supported by the [place] of Health and Human Service's declaration that [...] longer be used). Performed By: #### C [facility] #### [facility] [address] [place] [address] Dr. Ling Martin INFLUENZA A AND B AGon 02-16 INFLUBNEG SEE BELOW Normal [facility] Comment on above: Result Comment: Nega tive for Flu B protein antigen. Infection due to Flu B cannot be ruled out. Flu B antigen in the sample may be below the detection limit of the test. Performed By: #### JAISON BETTS #### [facility] [address] [place] [address] Dr. Ling Martin INFLUENZA A AG Positive Abnormal NEGATIVE SEE COMMENT [facility] Comment on above: Result Comment: Prev iously reported as: NEGATIVE SEE COMMENT On 02/16/2022 14:32 By NS6 Performed By: #### CONNIE BETTSRO #### [facility] [address] [place] [address] Dr. Ling Martin INFLUENZA B AG Negative Normal NEGATIVE SEE COMMENT [facility] Comment on above: Performed By: #### JAISON BETTS #### [facility] [address] [place] [address] Dr. Ling Martin INFLUPOS SEE BELOW Normal [facility] Comment on above: Result Comment: NOTE : Live attenuated influenzae vaccine viruses can cause a positive result for a rapid influenza diagnostic test if administered up to 7 days prior to rapid testing. Previously reported as: (blank) On 02/16/2022 14:32 By NS6 Performed By: #### JAISON BETTS #### [facility] [address] [place] [address] Dr. Ling Martin RSVon 02-16-2022 RSV AG Negative Normal NEGATIVE [facility] Comment on above: Performed By: #### JAISON BETTS #### [facility] [address] [place] [address] Dr. Ling Martin CBC AUTO DIFFon 01-24-2022 BASO # 0.0 103/ul Normal 0.0-0.1 [facility] Comment on above: Performed By: #### C BC #### [facility] [address] [place] [address] Dr. Ling Martin Basophils/100 WBC (Bld) 0.4 % Normal 0.2-2.0 [facility] Comment on above: Performed By: #### C BC #### [facility] [address] [place] [address] Dr. Ling Martin EO # 0.1 103/ul Normal 0.0-0.7 [facility] Comment on above: Performed By: #### C BC #### [facility] [address] [place] [address] Dr. Ling Martin Eosinophils/100 WBC (Bld) 1.2 % Normal 0.9-7.0 [facility] Comment on above: Performed By: #### C BC #### [facility] [address] [place] [address] Dr. Ling Martin Erythrocyte distribution width (RBC) [Ratio] 13.0 % Normal 11.0-15.0 [facility] Comment on above: Performed By: #### C BC #### [facility] [address] [place] [address] Dr. Ling Martin Hematocrit (Bld) [Volume fraction] 40.6 % Normal 36.0-48.0 [facility] Comment on above: Performed By: #### C BC #### [facility] [address] [place] [address] Dr. Ling Martin Hemoglobin (Bld) [Mass/Vol] 13.4 g/dL Normal 12.0-16.0 [facility] Comment on above: Performed By: #### C BC #### [facility] [address] [place] [address] Dr. Ling Martin IG # 0.05 10e3/ul Critically high 0.00-0.03 [facility] Comment on above: Performed By: #### C BC #### [facility] [address] [place] [address] Dr. Ling Martin IG % 0.5 % Normal 0.0-0.5 [facility] Comment on above: Performed By: #### C BC #### [facility] [address] [place] [address] Dr. Ling Martin LYMPH # 1.9 103/ul Normal 1.2-3.8 [facility] Comment on above: Performed By: #### C BC #### [facility] [address] [place] [address] Dr. Ling Martin Lymphocytes/100 WBC (Bld) 20.0 % Critically low 20.5-60.0 [facility] Comment on above: Performed By: #### C BC #### [facility] [address] [place] [address] Dr. Ling Martin MANUAL DIFF REQ NO Normal [facility] Comment on above: Performed By: #### C BC #### [facility] [address] [place] [address] Dr. Ling Martin MCH (RBC) [Entitic mass] 29.1 pg Normal 26.7-34.0 [facility] Comment on above: Performed By: #### C BC #### [facility] [address] [place] [address] Dr. Ling Martin MCHC (RBC) [Mass/Vol] 33.0 g/dL Normal 29.9-35.2 [facility] Comment on above: Performed By: #### C BC #### [facility] [address] [place] [address] Dr. Ling Martin MCV (RBC) [Entitic vol] 88.1 fL Normal 81.0-99.0 [facility] Comment on above: Performed By: #### C BC #### [facility] [address] [place] [address] Dr. Ling Martin MONO # 0.5 103/ul Normal 0.3-0.8 [facility] Comment on above: Performed By: #### C BC #### [facility] [address] [place] [address] Dr. Ling Martin Monocytes/100 WBC (Bld) 5.5 % Normal 1.7-12.0 [facility] Comment on above: Performed By: #### C BC #### [facility] [address] [place] [address] Dr. Ling Martin NEUT # 6.8 103/ul Critically high 1.4-6.5 [facility] Comment on above: Performed By: #### C BC #### [facility] [address] [place] [address] Dr. Ling Martin Neutrophils/100 WBC (Bld) 72.4 % Normal 43.0-75.0 [facility] Comment on above: Performed By: #### C BC #### [facility] [address] [place] [address] Dr. Ling Martin Platelet mean volume (Bld) [Entitic vol] 10.9 fL Normal 9.5-13.5 [facility] Comment on above: Performed By: #### C BC #### [facility] [address] [place] [address] Dr. Ling Martin PLT 208 103/ul Normal 150-450 [facility] Comment on above: Performed By: #### C BC #### [facility] [address] [place] [address] Dr. Ling Martin RBC 4.61 106/ul Normal 4.20-5.40 [facility] Comment on above: Performed By: #### C BC #### [facility] [address] [place] [address] Dr. Ling Martin WBC 9.4 103/ul Normal 4.0-11.0 [facility] Comment on above: Performed By: #### C BC #### [facility] [address] [place] [address] Dr. Ling Martin Covid-19 PCR ([facility])on 01-08 SARS-CoV-2 (COVID-19) RNA AIXA+probe Ql (Unsp spec) Not detected Normal NOT DETECTED [facility] Comment on above: Result Comment: This test is not yet approved or cleared by the [place] FDA. When there are no FDA-approved or cleared tests available, and other criteria are met, FDA can make tests available under an emergency access mechanism called an Emergency Use Authorization (EUA). The EUA for this test is supported by the [employer] Service of Health and Human Service's (HHS's) declaration [...] Performed By: #### E JAISON WHITTAKER #### [facility] [address] [place] [address] Dr. Ling Martin ER URINE PROFILEon Bilirubin Ql (U) Negative Normal NEGATIVE [facility] Comment on above: Performed By: #### C VDTB #### [facility] [address] [place] [address] Dr. Ling Martin Clarity (U) CLEAR Normal CLEAR [facility] Comment on above: Performed By: #### C VDTBH #### [facility] [address] [place] [address] Dr. Ling Martin Color (U) LT. YELLOW Normal YELLOW [facility] Comment on above: Performed By: #### C VDTBH #### [facility] [address] [place] [address] Dr. Lign BANEGAS A micrscopic examina tion will be performed if indicated. Normal [facility] Comment on above: Performed By: #### C VDTBH #### [facility] [address] [place] [address] Dr. Ling Martin Glucose Ql (U) Negative Normal NEGATIVE [facility] Comment on above: Performed By: #### C VDTBH #### [facility] [address] [place] [address] Dr. Ling Martin Hemoglobin Ql (U) TRACE-INTACT Abnormal NEGATIVE [facility] Comment on above: Performed By: #### C VDTBH #### [facility] [address] [place] [address] Dr. Ling Martin Ketones Ql (U) Negative Normal NEGATIVE [facility] Comment on above: Performed By: #### C VDTBH #### [facility] [address] [place] [address] Dr. Ling Martin LEUKOCYTES Negative Normal NEGATIVE [facility] Comment on above: Performed By: #### C VDTBH #### [facility] [address] [place] [address] Dr. Ling Martin Nitrite Ql (U) Negative Normal NEGATIVE [facility] Comment on above: Performed By: #### C VDTBH #### [facility] [address] [place] [address] Dr. Ling Martin pH (U) 7.5 [pH] Normal 5-9 [facility] Comment on above: Performed By: #### C VDTBH #### [facility] [address] [place] [address] Dr. Ling Martin SPEC GRAVITY <=1.005 Abnormal 1.005-<=1.0 25 [facility] Comment on above: Performed By: #### C VDTBH #### [facility] [address] [place] [address] Dr. Ling Martin UA PROTEIN Negative Normal NEGATIVE/ TRACE [facility] Comment on above: Performed By: #### C VDTBH #### [facility] [address] [place] [address] Dr. Ling Martin UR MICRO IND INDICATED Normal [facility] Comment on above: Performed By: #### C VDTBH #### [facility] [address] [place] [address] Dr. Ling Martin Urobilinogen Qn (U) 0.2 {Sera'U}/dL Normal 0.2 - 1. 0 [facility] Comment on above: Performed By: #### C VDTBH #### [facility] [address] [place] [address] Dr. Ling Martin INFLUENZA A AND B AGon 01-24 INFLUENZA A AG Negative Normal NEGATIVE SEE COMMENT [facility] Comment on above: Performed By: #### P OCGLUC #### [facility] [address] [place] [address] Dr. Ling Martin INFLUENZA B AG Negative Normal NEGATIVE SEE COMMENT [facility] Comment on above: Performed By: #### P OCGLUC #### [facility] [address] [place] [address] Dr. Ling Martin INTERNAL CONTROLS Within Normal Limits Normal Wi thin Normal Limits [facility] Comment on above: Performed By: #### P OCGLUC #### [facility] [address] [place] [address] Dr. Ling Martin PROF 14(COMP METB)on 022 Albumin [Mass/Vol] 4.0 g/dL Normal 3.4-5.0 [facility] Comment on above: Performed By: #### C MP #### [facility] [address] [place] [address] Dr. Ling Martin Albumin/Globulin [Mass ratio] 1.1 {ratio} Normal [facility] Comment on above: Performed By: #### C MP #### [facility] [address] [place] [address] Dr. Ling Martin ALP [Catalytic activity/Vol] 142 U/L Critically high 46-116 [facility] Comment on above: Performed By: #### C MP #### [facility] [address] [place] [address] Dr. Ling Martin ALT [Catalytic activity/Vol] 50 U/L Normal 14-59 [facility] Comment on above: Performed By: #### C MP #### [facility] [address] [address] [address] Ling Martin Anion gap [Moles/Vol] 9.3 mmol/L Normal [facility] Comment on above: Performed By: #### C MP #### [facility] [address] [address] [address] Ling Martin AST [Catalytic activity/Vol] 29 U/L Normal 15-37 [facility] Comment on above: Performed By: #### C MP #### [facility] [address] [address] [address] Ling Martin Bilirubin [Mass/Vol] 0.6 mg/dL Normal 0.2-1.0 [facility] Comment on above: Performed By: #### C MP #### [facility] [address] [address] [address] Ling Martin Calcium [Mass/Vol] 8.8 mg/dL Normal 8.5-10.1 [facility] Comment on above: Performed By: #### C MP #### [facility] [address] [address] [address] Ling Martin Chloride [Moles/Vol] 102 mmol/L Normal 98-107 [facility] Comment on above: Performed By: #### C MP #### [facility] [address] [address] [address] Ling Martin CO2 [Moles/Vol] 27.1 mmol/L Normal 21.0-32.0 [facility] Comment on above: Performed By: #### C MP #### [facility] [address] [address] [address] Ling Martin Creatinine [Mass/Vol] 1.02 mg/dL Normal 0.55-1.02 [facility] Comment on above: Performed By: #### C MP #### [facility] [address] [address] [address] Ling Martin EGFR-AF IRISH >60 Normal >=60 [facility] Comment on above: Performed By: #### C MP #### [facility] [address] [address] [address] Ling Martin EGFR-NON AF IRISH 58 mL/min/1.73m2 Critically low >=60 [facility] Comment on above: Performed By: #### C MP #### [facility] [address] [address] [address] Ling Martin Globulin (S) [Mass/Vol] 3.5 g/dL Normal [facility] Comment on above: Performed By: #### C MP #### [facility] [address] [address] [address] Ling Martin Glucose [Mass/Vol] 107 mg/dL Critically high 74-106 T [facility] Comment on above: Performed By: #### C MP #### [facility] [address] [address] [address] Ling Martin Potassium [Moles/Vol] 3.4 mmol/L Critically low 3.5-5.1 [facility] Comment on above: Performed By: #### C MP #### [facility] [address] [address] [address] Ling Martin Protein [Mass/Vol] 7.5 g/dL Normal 6.4-8.2 [facility] Comment on above: Performed By: #### C MP #### [facility] [address] [address] [address] Ling Martin Sodium [Moles/Vol] 135 mmol/L Critically low 136-145 [facility] Comment on above: Performed By: #### C MP #### [facility] [address] [address] [address] Ling Martin Urea nitrogen [Mass/Vol] 10.0 mg/dL Normal 7.0-18.0 [facility] Comment on above: Performed By: #### C MP #### [facility] [address] [address] [address] Ling Martin Urea nitrogen/Creatinine [Mass ratio] 9.8 mg/mg Normal [facility] Comment on above: Performed By: #### C MP #### [facility] [address] [address] [address] Ling Martin URINE MICROSCOPIC ONLYon BACTERIA NONE SEEN Normal NONE SEEN [facility] Comment on above: Performed By: #### C VDTBH #### [facility] [address] [place] [address] Dr. Ling Martin Bacteria identified Cx Nom (U) NOT INDICATED Normal [facility] Comment on above: Performed By: #### C VDTBH #### [facility] [address] [place] [address] Dr. Ling Martin CAST NONE SEEN Normal NONE SEEN [facility] Comment on above: Performed By: #### C VDTBH #### [facility] [address] [place] [address] Dr. Ling Martin Crystals LM Nom (Urine sed) NONE SEEN Normal NONE SEEN [facility] Comment on above: Performed By: #### C VDTBH #### [facility] [address] [place] [address] Dr. Ling Martin Epithelial cells LM Ql (Urine sed) RARE Normal NONE SEEN /RARE [facility] Comment on above: Performed By: #### C VDTBH #### [facility] [address] [place] [address] Dr. Ling Martin MUCOUS NONE SEEN Normal NONE SEEN [facility] Comment on above: Performed By: #### C VDTBH #### [facility] [address] [place] [address] Dr. Ling Martin RBC NONE SEEN Abnormal 0-2 [facility] Comment on above: Performed By: #### C VDTBH #### [facility] [address] [place] [address] Dr. Ling Martin WBC 0-2 Abnormal NONE SEEN [facility] Comment on above: Performed By: #### C VDTBH #### [facility] [address] [place] [address] Dr. Ling Martin MRI KNEE LT WO [...] DEEJAY GRAHAM Date: 2022-01-06 17:43 Normal [facility] VIT D 25-OH L[employer]Pon 2021 Vitamin D, 25-Hydroxy 38.4 ng/mL Normal 30.0-100.0 [facility] Comment on above: Result Comment: Kaylan min D deficiency has been defined by the [employer] of [employer] and an Endocrine Society practice guideline as a level of serum 25-OH vitamin D less than 20 ng/mL (1,2). The Endocrine Society went on to further define vitamin D insufficiency as a level between 21 and 29 ng/mL (2). 1. IOM ([employer] of [employer]). 2010. Dietary reference intakes for calcium and D. [place]: The National Academies Press. 2. Joseph MF, Barrington FORD, Tequila HO, et al. Evaluation, treatment, and prevention of vitamin D deficiency: an Endocrine Society clinical practice guideline. JCEM. 2010; 96(7):1911-30. Performed By: #### P OCGLUC #### [facility] [address] [place] [address] Dr. Ling Martin CBC AUTO DIFFon 09-01-2021 BASO # 0.1 103/ul Normal 0.0-0.1 [facility] Comment on above: Performed By: #### E REMEDIOS UMICRO #### [facility] [address] [place] [address] Dr. Ling Martin Basophils/100 WBC (Bld) 0.7 % Normal 0.2-2.0 [facility] Comment on above: Performed By: #### E RUPierce, UMICRO #### [facility] [address] [place] [address] Dr. Ling Martin EO # 0.2 103/ul Normal 0.0-0.7 [facility] Comment on above: Performed By: #### E REMEDIOS UMICRO #### [facility] [address] [place] [address] Dr. Ling Martin Eosinophils/100 WBC (Bld) 2.4 % Normal 0.9-7.0 [facility] Comment on above: Performed By: #### Yelitza WHITTAKER UMICRO #### [facility] [address] [place] [address] Dr. Ling Martin Erythrocyte distribution width (RBC) [Ratio] 12.9 % Normal 11.0-15.0 [facility] Comment on above: Performed By: #### E REMEDIOS UMICRO #### [facility] [address] [place] [address] Dr. Ling Martin Hematocrit (Bld) [Volume fraction] 41.0 % Normal 36.0-48.0 [facility] Comment on above: Performed By: #### E REMEDIOS UMICRO #### [facility] [address] [place] [address] Dr. Ling Martin Hemoglobin (Bld) [Mass/Vol] 13.3 g/dL Normal 12.0-16.0 [facility] Comment on above: Performed By: #### E RUPierce UMICRO #### [facility] [address] [place] [address] Dr. Ling Martin IG # 0.03 10e3/ul Normal 0.00-0.03 [facility] Comment on above: Performed By: #### JAISON BETTS #### [facility] [address] [place] [address] Dr. Ling Martin IG % 0.4 % Normal 0.0-0.5 [facility] Comment on above: Performed By: #### JAISON BETTS #### [facility] [address] [place] [address] Dr. Ling Martin LYMPH # 1.7 103/ul Normal 1.2-3.8 [facility] Comment on above: Performed By: #### JAISON BETTS #### [facility] [address] [place] [address] Dr. Ling Martin Lymphocytes/100 WBC (Bld) 25.1 % Normal 20.5-60.0 [facility] Comment on above: Performed By: #### JAISON BETTS #### [facility] [address] [place] [address] Dr. Ling Martin MANUAL DIFF REQ NO Normal [facility] Comment on above: Performed By: #### JAISON BETTS #### [facility] [address] [place] [address] Dr. Ling Martin MCH (RBC) [Entitic mass] 29.4 pg Normal 26.7-34.0 [facility] Comment on above: Performed By: #### CONNIE BETTSRO #### [facility] [address] [place] [address] Dr. Ling Martin MCHC (RBC) [Mass/Vol] 32.4 g/dL Normal 29.9-35.2 [facility] Comment on above: Performed By: #### CONNIE BETTSRO #### [facility] [address] [place] [address] Dr. Ling Martin MCV (RBC) [Entitic vol] 90.5 fL Normal 81.0-99.0 [facility] Comment on above: Performed By: #### CONNIE BETTSRO #### [facility] [address] [place] [address] Dr. Ling Martin MONO # 0.3 103/ul Normal 0.3-0.8 [facility] Comment on above: Performed By: #### Yelitza WHITTAKER UMICRO #### [facility] [address] [place] [address] Dr. Ling Martin Monocytes/100 WBC (Bld) 4.8 % Normal 1.7-12.0 [facility] Comment on above: Performed By: #### Yelitza WHITTAKER UMICRO #### [facility] [address] [place] [address] Dr. Ling Martin NEUT # 4.4 103/ul Normal 1.4-6.5 [facility] Comment on above: Performed By: #### Yelitza WHITTAKER UMICRO #### [facility] [address] [place] [address] Dr. Ling Martin Neutrophils/100 WBC (Bld) 66.6 % Normal 43.0-75.0 [facility] Comment on above: Performed By: #### Yelitza WHITTAKER ICRO #### [facility] [address] [place] [address] Dr. Ling Martin Platelet mean volume (Bld) [Entitic vol] 11.1 fL Normal 9.5-13.5 [facility] Comment on above: Performed By: #### Yelitza WHITTAKER ICRO #### [facility] [address] [place] [address] Dr. Ling Martin PLT 203 103/ul Normal 150-450 [facility] Comment on above: Performed By: #### Yelitza WHITTAKER UMICRO #### [facility] [address] [place] [address] Dr. Ling Martin RBC 4.53 106/ul Normal 4.20-5.40 [facility] Comment on above: Performed By: #### Yelitza WHITTAKER UMICRO #### [facility] [address] [place] [address] Dr. Ling Martin WBC 6.7 103/ul Normal 4.0-11.0 [facility] Comment on above: Performed By: #### JAISON BETTS #### [facility] [address] [place] [address] Dr. Ling Martin FREE THYROXINE INDEX T7on FTI 2.73 Normal 1.30-4.50 [facility] Comment on above: Performed By: #### C VDTBH #### [facility] [address] [place] [address] Dr. Ling Martin T3U 31.0 % Normal 30.0-39.0 [facility] Comment on above: Performed By: #### C VDTBH #### [facility] [address] [place] [address] Dr. Ling Martin T4 [Mass/Vol] 8.80 ug/dL Normal 4.80-13.90 [facility] Comment on above: Performed By: #### C VDTBH #### [facility] [address] [place] [address] Dr. Ling Martin IRONon 09-01-2021 Iron [Mass/Vol] 104.0 ug/dL Normal 50.0-170.0 [facility] Comment on above: Performed By: #### JAISON BETTS #### [facility] [address] [place] [address] Dr. Ling Martin PROF 14(COMP METB)on 022 Albumin [Mass/Vol] 4.4 g/dL Normal 3.4-5.0 [facility] Comment on above: Performed By: #### C VDTBH #### [facility] [address] [place] [address] Dr. Ling Martin Albumin/Globulin [Mass ratio] 1.4 {ratio} Normal [facility] Comment on above: Performed By: #### C VDTBH #### [facility] [address] [place] [address] Dr. Ling Martin ALP [Catalytic activity/Vol] 140 U/L Critically high 46-116 [facility] Comment on above: Performed By: #### C VDTBH #### [facility] [address] [address] [address] Ling Martin ALT [Catalytic activity/Vol] 53 U/L Normal 14-59 [facility] Comment on above: Performed By: #### C VDTBH #### [facility] [address] [place] [address] Dr. Ling Martin Anion gap [Moles/Vol] 13.1 mmol/L Normal Th e [facility] Comment on above: Performed By: #### C VDTBH #### [facility] [address] [place] [address] Dr. Ling Martin AST [Catalytic activity/Vol] 27 U/L Normal 15-37 [facility] Comment on above: Performed By: #### C VDTBH #### [facility] [address] [place] [address] Dr. Ling Martin Bilirubin [Mass/Vol] 0.6 mg/dL Normal 0.2-1.0 [facility] Comment on above: Performed By: #### C VDTBH #### [facility] [address] [place] [address] Dr. Ling Martin Calcium [Mass/Vol] 8.8 mg/dL Normal 8.5-10.1 [facility] Comment on above: Performed By: #### C VDTBH #### [facility] [address] [place] [address] Dr. Ling Martin Chloride [Moles/Vol] 106 mmol/L Normal 98-107 [facility] Comment on above: Performed By: #### C VDTBH #### [facility] [address] [place] [address] Dr. Ling Martin CO2 [Moles/Vol] 24.3 mmol/L Normal 21.0-32.0 [facility] Comment on above: Performed By: #### C VDTBH #### [facility] [address] [place] [address] Dr. Ling Martin Creatinine [Mass/Vol] 1.07 mg/dL Critically high 0.55-1.02 [facility] Comment on above: Performed By: #### C VDTBH #### [facility] [address] [address] [address] Ling Martin EGFR-AF IRISH >60 Normal >=60 [facility] Comment on above: Performed By: #### C VDTBH #### [facility] [address] [address] [address] Ling Martin EGFR-NON AF IRISH 55 mL/min/1.73m2 Critically low >=60 [facility] Comment on above: Performed By: #### C VDTBH #### [facility] [address] [address] [address] Ling Martin Globulin (S) [Mass/Vol] 3.2 g/dL Normal [facility] Comment on above: Performed By: #### C VDTBH #### [facility] [address] [place] [address] Dr. Ling Martin Glucose [Mass/Vol] 136 mg/dL Critically high 74-106 T [facility] Comment on above: Performed By: #### C VDTBH #### [facility] [address] [place] [address] Dr. Ling Martin Potassium [Moles/Vol] 3.4 mmol/L Critically low 3.5-5.1 [facility] Comment on above: Performed By: #### C VDTBH #### [facility] [address] [place] [address] Dr. Ling Martin Protein [Mass/Vol] 7.6 g/dL Normal 6.4-8.2 [facility] Comment on above: Performed By: #### C VDTBH #### [facility] [address] [place] [address] Dr. Ling Martin Sodium [Moles/Vol] 140 mmol/L Normal 136-145 [facility] Comment on above: Performed By: #### C VDTBH #### [facility] [address] [place] [address] Dr. Ling Martin Urea nitrogen [Mass/Vol] 17.0 mg/dL Normal 7.0-18.0 [facility] Comment on above: Performed By: #### C VDTBH #### [facility] [address] [place] [address] Dr. Ling Martin Urea nitrogen/Creatinine [Mass ratio] 15.9 mg/mg Normal [facility] Comment on above: Performed By: #### C VDTBH #### [facility] [address] [place] [address] Dr. Ling Martin TSHon 09-01-2021 TSH 2.454 uIU/mL Normal 0.358-3.740 [facility] Comment on above: Performed By: #### C VDTBH #### [facility] [address] [place] [address] Dr. Ling Martin VITAMIN B12on 09-01-2021 Cobalamin (Vitamin B12) [Mass/Vol] 332.0 pg/mL Normal 193.0-986.0 [facility] Comment on above: Performed By: #### JAISON BETTS #### [facility] [address] [place] [address] Dr. Ling Martin H PYLORI ANTIBODY IGGon 07-10 H. PYLORI IGG ABS 0.22 Index Value Normal 0.00-0.79 [facility] Comment on above: Result Comment: Nega tive <0.80 Equivocal 0.80 - 0.89 Positive >0.89 Performed By: #### P OCGLUC #### [facility] [address] [place] [address] Dr. Ling Martin T3, TOTAL (TRIIODOTHYRONINE) on 07-30-2021 T3, TOTAL 130 ng/dL Normal 71-180 [facility] Comment on above: Performed By: #### T 3TOTAL #### [facility] [address] [place] [address] Dr. Ling Martin CBC AUTO DIFFon 07-29-2021 BASO # 0.0 103/ul Normal 0.0-0.1 [facility] Comment on above: Performed By: #### JAISON BETTS #### [facility] [address] [place] [address] Dr. Ling Martin Basophils/100 WBC (Bld) 0.4 % Normal 0.2-2.0 [facility] Comment on above: Performed By: #### JAISON BETTS #### [facility] [address] [place] [address] Dr. Ling Martin EO # 0.2 103/ul Normal 0.0-0.7 [facility] Comment on above: Performed By: #### JAISON BETTS #### [facility] [address] [place] [address] Dr. Ling Martin Eosinophils/100 WBC (Bld) 2.5 % Normal 0.9-7.0 [facility] Comment on above: Performed By: #### JAISON BETTS #### [facility] [address] [place] [address] Dr. Ling Martin Erythrocyte distribution width (RBC) [Ratio] 14.9 % Normal 11.0-15.0 [facility] Comment on above: Performed By: #### JAISON BETTS #### [facility] [address] [place] [address] Dr. Ling Martin Hematocrit (Bld) [Volume fraction] 38.8 % Normal 36.0-48.0 [facility] Comment on above: Performed By: #### JAISON BETTS #### [facility] [address] [place] [address] Dr. Ling Martin Hemoglobin (Bld) [Mass/Vol] 12.5 g/dL Normal 12.0-16.0 [facility] Comment on above: Performed By: #### JAISON BETTS #### [facility] [address] [place] [address] Dr. Ling Martin IG # 0.02 10e3/ul Normal 0.00-0.03 [facility] Comment on above: Performed By: #### JAISON BETTS #### [facility] [address] [place] [address] Dr. Ling Martin IG % 0.3 % Normal 0.0-0.5 [facility] Comment on above: Performed By: #### JAISON BETTS #### [facility] [address] [place] [address] Dr. Ling Martin LYMPH # 2.6 103/ul Normal 1.2-3.8 [facility] Comment on above: Performed By: #### CONNIE BETTSRO #### [facility] [address] [place] [address] Dr. Ling Martin Lymphocytes/100 WBC (Bld) 37.6 % Normal 20.5-60.0 [facility] Comment on above: Performed By: #### CONNIE BETTSRO #### [facility] [address] [place] [address] Dr. Ling Martin MANUAL DIFF REQ NO Normal [facility] Comment on above: Performed By: #### CONNIE BETTSRO #### [facility] [address] [place] [address] Dr. Ling Martin MCH (RBC) [Entitic mass] 29.0 pg Normal 26.7-34.0 [facility] Comment on above: Performed By: #### CONNIE BETTSRO #### [facility] [address] [place] [address] Dr. Ling Martin MCHC (RBC) [Mass/Vol] 32.2 g/dL Normal 29.9-35.2 [facility] Comment on above: Performed By: #### CONNIE BETTSRO #### [facility] [address] [place] [address] Dr. Ling Martin MCV (RBC) [Entitic vol] 90.0 fL Normal 81.0-99.0 [facility] Comment on above: Performed By: #### CONNIE BETTSRO #### [facility] [address] [place] [address] Dr. Ling Martin MONO # 0.6 103/ul Normal 0.3-0.8 [facility] Comment on above: Performed By: #### CONNIE BETTSRO #### [facility] [address] [place] [address] Dr. Ling Martin Monocytes/100 WBC (Bld) 8.3 % Normal 1.7-12.0 [facility] Comment on above: Performed By: #### TSERING BETTSICRO #### [facility] [address] [place] [address] Dr. Ling Martin NEUT # 3.5 103/ul Normal 1.4-6.5 [facility] Comment on above: Performed By: #### Yelitza WHITTAKER UMICRO #### [facility] [address] [place] [address] Dr. Ling Martin Neutrophils/100 WBC (Bld) 50.9 % Normal 43.0-75.0 [facility] Comment on above: Performed By: #### Yelitza WHITTAKER UMICRO #### [facility] [address] [place] [address] Dr. Ling Martin Platelet mean volume (Bld) [Entitic vol] 11.5 fL Normal 9.5-13.5 [facility] Comment on above: Performed By: #### TSREING BETTSICRO #### [facility] [address] [place] [address] Dr. Ling Martin PLT 161 103/ul Normal 150-450 [facility] Comment on above: Performed By: #### TSERING BETTSICRO #### [facility] [address] [place] [address] Dr. Ling Martin RBC 4.31 106/ul Normal 4.20-5.40 [facility] Comment on above: Performed By: #### Yelitza WHITTAKER UMICRO #### [facility] [address] [place] [address] Dr. Ling Martin WBC 6.9 103/ul Normal 4.0-11.0 [facility] Comment on above: Performed By: #### Yelitza WHITTAKER UMICRO #### [facility] [address] [place] [address] Dr. Ling Martin CULTURE URINEon 07-29-2021 CULTURE URINE Culture Observations : LIGHT GROWTH OF MIXED GENITAL [place]. NO POTENTIAL PATHOGENS SEEN. Normal [facility] Comment on above: Performed By: #### Yelitza WHITTAKER UMICRO #### [facility] [address] [place] [address] Dr. Ling Matrin [facility] SARS-CoV-2 (COVID-19) RNA AIXA+probe Ql (Unsp spec) Not detected Normal NOT DETECTED [facility] Comment on above: Result Comment: When diagnostic [...] for this test is supported by the [employer] of Health and Human Service's declaration that [...] Performed By: #### E REMEDIOS UMICRO #### [facility] [address] [place] [address] Dr. Ling Martin GI PANEL (PCR)on 07-29-2021 Adenovirus F 40/41 Not detected Normal NOT DETECTED [facility] Comment on above: Performed By: #### E RUPierce UMICRO #### [facility] [address] [place] [address] Dr. Ling Martin Astrovirus Not detected Normal NOT DETECTED [facility] Comment on above: Performed By: #### E RUR UMICRO #### [facility] [address] [place] [address] Dr. Ling Martin C. Diff toxin A/B Not detected Normal NOT DETECTED [facility] Comment on above: Performed By: #### E RUR, UMICRO #### [facility] [address] [place] [address] Dr. Ling Martin Campylobacter Not detected Normal NOT DETECTED [facility] Comment on above: Performed By: #### E RUR UMICRO #### [facility] [address] [place] [address] Dr. Ling Martin Cryptosporidium Not detected Normal NOT DETECTED [facility] Comment on above: Performed By: #### Yelitza WHITTAKER UMICRO #### [facility] [address] [place] [address] Dr. Ling Martin Cyclos. Cayetanensis Not detected Normal NOT DETECTED [facility] Comment on above: Performed By: #### Yelitza WHITTAKER UMICRO #### [facility] [address] [place] [address] Dr. Ling Martin E. Coli O157 Not Applicable Normal Not Applicable [facility] Comment on above: Performed By: #### Yelitza WHITTAKER UMICRO #### [facility] [address] [place] [address] Dr. Ling Martin E. histolytica Not detected Normal NOT DETECTED [facility] Comment on above: Performed By: #### Yelitza WHITTAKER UMICRO #### [facility] [address] [place] [address] Dr. Ling Martin EAEC Not detected Normal NOT DETECTED [facility] Comment on above: Performed By: #### Yelitza WHITTAKER UMICRO #### [facility] [address] [place] [address] Dr. Ling Martin EIEC Not detected Normal NOT DETECTED [facility] Comment on above: Performed By: #### Yelitza WHITTAKER UMICRO #### [facility] [address] [place] [address] Dr. Ling Martin EPEC Not detected Normal NOT DETECTED [facility] Comment on above: Performed By: #### Yelitza WHITTAKER UMICRO #### [facility] [address] [place] [address] Dr. Ling Martin ETEC Not detected Normal NOT DETECTED [facility] Comment on above: Performed By: #### Yelitza WHITTAKER UMICRO #### [facility] [address] [place] [address] Dr. Ling Matrin G. Lamblia Not detected Normal NOT DETECTED [facility] Comment on above: Performed By: #### Yelitza WHITTAKER UMICRO #### [facility] [address] [address] [address] Ling CEDENO CONTROLS PASSED Normal [facility] Comment on above: Performed By: #### Yelitza WHITTAKER UMICRO #### [facility] [address] [address] [address] Ling WADE HEADER GI PANEL BACTERIA Normal T [facility] Comment on above: Performed By: #### Yelitza WHITTAKER UMICRO #### [facility] [address] [place] [address] Dr. Ling MEDRANO ECOLI GI PANEL DIARRHEAGEN IC E.COLI / SHIGELLA Normal [facility] Comment on above: Performed By: #### TSERING BETTSICRO #### [facility] [address] [place] [address] Dr. Ling MEDRANO INFO SEE BELOW Normal [facility] Comment on above: Result Comment: EAEC - Enteroaggregative E. Coli EPEC- Enteropathogenic E. Coli ETEC- Enterotoxigenic E. Coli lt/st STEC- Shigella-like toxin-producing E. Coli stx1/stx2 EIEC- Shigella/Enteroinvasive E. Coli Performed By: #### TSERING BETTSICRO #### [facility] [address] [place] [address] Dr. Ling MEDRANO PARASITES GI PANEL PARASITES Normal [facility] Comment on above: Performed By: #### Yelitza WHITTAKER UMICRO #### [facility] [address] [place] [address] Dr. Ling MEDRANO VIRUS GI PANEL VIRUSES Normal [facility] Comment on above: Performed By: #### Yelitza WHITTAKER UMICRO #### [facility] [address] [place] [address] Dr. Ling Martin Norovirus GI/GII Not detected Normal NOT DETECTED [facility] Comment on above: Performed By: #### Yelitza WHITTAKER UMICRO #### [facility] [address] [place] [address] Dr. Ling Martin P. Shigelloides Not detected Normal NOT DETECTED [facility] Comment on above: Performed By: #### E REMEDIOS, ICRO #### [facility] [address] [place] [address] Dr. Ling Martin Rotavirus A Not detected Normal NOT DETECTED [facility] Comment on above: Performed By: #### E REMEDIOS, UMICRO #### [facility] [address] [place] [address] Dr. Ling Martin Salmonella Not detected Normal NOT DETECTED [facility] Comment on above: Performed By: #### E RUPierce, ICRO #### [facility] [address] [place] [address] Dr. Ling Martin Sapovirus Not detected Normal NOT DETECTED [facility] Comment on above: Performed By: #### E REMEDIOS ICRO #### [facility] [address] [place] [address] Dr. Ling Martin STEC Not detected Normal NOT DETECTED [facility] Comment on above: Performed By: #### E REMEDIOS ICRO #### [facility] [address] [place] [address] Dr. Ling Martin Vibrio Not detected Normal NOT DETECTED [facility] Comment on above: Performed By: #### Yelitza WHITTAKER ICRO #### [facility] [address] [place] [address] Dr. Ling Martin Vibrio Cholera Not detected Normal NOT DETECTED [facility] Comment on above: Performed By: #### Yelitza WHITTAKER ICRO #### [facility] [address] [place] [address] Dr. Ling Martin Y. Enterocolitica Not detected Normal NOT DETECTED [facility] Comment on above: Performed By: #### E REMEDIOS ICRO #### [facility] [address] [place] [address] Dr. Ling Martin POINT OF CARE GLUCOSEon 06-2 Glucose [Mass/Vol] 109 mg/dL Critically high 74-106 T [facility] Comment on above: Performed By: #### P OCGLUC #### [facility] [address] [place] [address] Dr. Ling Martin Glucose [Mass/Vol] 205 mg/dL Critically high 74-106 [facility] Comment on above: Performed By: #### P OCGLUC #### [facility] [address] [address] [address] Ling Martin PROF 14(COMP METB)on 07-29- 022 Albumin [Mass/Vol] 3.3 g/dL Critically low 3.4-5.0 [facility] Comment on above: Performed By: #### E REMEDIOS, UMICRO #### [facility] [address] [address] [address] Ling Martin Albumin/Globulin [Mass ratio] 1.3 {ratio} Normal [facility] Comment on above: Performed By: #### E REMEDIOS, UMICRO #### [facility] [address] [place] [address] Dr. Ling Martin ALP [Catalytic activity/Vol] 117 U/L Critically high 46-116 [facility] Comment on above: Performed By: #### E REMEDIOS, UMICRO #### [facility] [address] [place] [address] Dr. Ling Martin ALT [Catalytic activity/Vol] 46 U/L Normal 14-59 [facility] Comment on above: Performed By: #### E RUPierce, UMICRO #### [facility] [address] [place] [address] Dr. Ling Martin Anion gap [Moles/Vol] 13.8 mmol/L Normal [facility] Comment on above: Performed By: #### E REMEDIOS, UMICRO #### [facility] [address] [place] [address] Dr. Ling Martin AST [Catalytic activity/Vol] 17 U/L Normal 15-37 [facility] Comment on above: Performed By: #### E REMEDIOS, UMICRO #### [facility] [address] [address] [address] Ling Martin Bilirubin [Mass/Vol] 0.5 mg/dL Normal 0.2-1.0 [facility] Comment on above: Performed By: #### Yelitza WHITTAKER UMICRO #### [facility] [address] [place] [address] Dr. Ling Martin Calcium [Mass/Vol] 8.3 mg/dL Critically low 8.5-10.1 [facility] Comment on above: Performed By: #### Yelitza WHITTAKER UMICRO #### [facility] [address] [place] [address] Dr. Ling Martin Chloride [Moles/Vol] 110 mmol/L Critically high 98-107 [facility] Comment on above: Performed By: #### Yelitza WHITTAKER UMICRO #### [facility] [address] [place] [address] Dr. Ling Martin CO2 [Moles/Vol] 22.1 mmol/L Normal 21.0-32.0 [facility] Comment on above: Performed By: #### Yelitza WHITTAKER UMICRO #### [facility] [address] [place] [address] Dr. Ling Martin Creatinine [Mass/Vol] 0.80 mg/dL Normal 0.55-1.02 [facility] Comment on above: Performed By: #### Yelitza WHITTAKER UMICRO #### [facility] [address] [place] [address] Dr. Ling Martin EGFR-AF IRISH >60 Normal >=60 [facility] Comment on above: Performed By: #### Yelitza WHITTAKER UMICRO #### [facility] [address] [place] [address] Dr. Ling Martin EGFR-NON AF IRISH >60 Normal >=60 [facility] Comment on above: Performed By: #### Yelitza WHITTAKER UMICRO #### [facility] [address] [place] [address] Dr. Ling Martin Globulin (S) [Mass/Vol] 2.5 g/dL Normal [facility] Comment on above: Performed By: #### Yelitza WHITTAKER UMICRO #### [facility] [address] [place] [address] Dr. Ling Martin Glucose [Mass/Vol] 98 mg/dL Normal 74-106 [facility] Comment on above: Performed By: #### JAISON BETTS #### [facility] [address] [place] [address] Dr. Ling Martin Potassium [Moles/Vol] 3.9 mmol/L Normal 3.5-5.1 [facility] Comment on above: Performed By: #### JAISON BETTS #### [facility] [address] [place] [address] Dr. Ling Martin Protein [Mass/Vol] 5.8 g/dL Critically low 6.4-8.2 [facility] Comment on above: Performed By: #### JAISON BETTS #### [facility] [address] [place] [address] Dr. Ling Martin Sodium [Moles/Vol] 142 mmol/L Normal 136-145 [facility] Comment on above: Performed By: #### JAISON BETTS #### [facility] [address] [place] [address] Dr. Ling Martin Urea nitrogen [Mass/Vol] 8.0 mg/dL Normal 7.0-18.0 [facility] Comment on above: Performed By: #### JAISON BETTS #### [facility] [address] [place] [address] Dr. Ling Martin Urea nitrogen/Creatinine [Mass ratio] 10.0 mg/mg Normal [facility] Comment on above: Performed By: #### JAISON BETTS #### [facility] [address] [place] [address] Dr. Ling Martin AMMONIAon 07-28-2021 Ammonia (P) [Mass/Vol] ug/dL Critically low 11-32 [facility] Comment on above: Performed By: #### C MP #### [facility] [address] [place] [address] Dr. Ling Martin AMYLASEon 07-28-2021 Amylase [Catalytic activity/Vol] 39 U/L Normal 25-115 [facility] Comment on above: Performed By: #### C BC #### [facility] [address] [place] [address] Dr. Ling Martin BNPon 07-28-2021 Natriuretic peptide B (Bld) [Mass/Vol] 337.0 pg/mL Normal <=450.0 [facility] Comment on above: Performed By: #### C BC #### [facility] [address] [place] [address] Dr. Ling Martin CARDIAC NATHAN ADMITon 022 CK [Catalytic activity/Vol] 57 U/L Normal 26-192 [facility] Comment on above: Performed By: #### C BC #### [facility] [address] [place] [address] Dr. Ling Martin CK.MB [Mass/Vol] 0.56 ng/mL Normal <=3.60 [facility] Comment on above: Performed By: #### C BC #### [facility] [address] [place] [address] Dr. Ling Martin HSTROP 7.2 pg/mL Normal 4.0-51.3 [facility] Comment on above: Result Comment: CUT- OFF POINTS HAVE BEEN ESTABLISHED BASED ON THE FOURTH UNIVERSAL DEFINITIONS OF MYOCARDIAL INFARCTION. THE UPPER REFERENCE LIMIT (URL) OF TROPONIN, DEFINED THE 99TH PERCENTILE OF cTnI DISTRIBUTION IN A REFERENCE POPULATION, HAS BEEN CONFIRMED THE DECISION THRESHOLD FOR SC DIAGNOSIS. Performed By: #### C BC #### [facility] [address] [place] [address] Dr. Ling Martin DREA 20 ng/mL Normal 9-82 [facility] Comment on above: Performed By: #### C BC #### [facility] [address] [place] [address] Dr. Ling Martin CBC AUTO DIFFon 07-28-2021 BASO # 0.1 103/ul Normal 0.0-0.1 [facility] Comment on above: Performed By: #### P OCGLUC #### [facility] [address] [place] [address] Dr. Ling Martin Basophils/100 WBC (Bld) 0.6 % Normal 0.2-2.0 [facility] Comment on above: Performed By: #### P OCGLUC #### [facility] [address] [place] [address] Dr. Ling Martin EO # 0.2 103/ul Normal 0.0-0.7 [facility] Comment on above: Performed By: #### P OCGLUC #### [facility] [address] [place] [address] Dr. Ling Martin Eosinophils/100 WBC (Bld) 2.1 % Normal 0.9-7.0 [facility] Comment on above: Performed By: #### P OCGLUC #### [facility] [address] [place] [address] Dr. Ling aMrtin Erythrocyte distribution width (RBC) [Ratio] 15.3 % Critically high 11.0-15.0 [facility] Comment on above: Performed By: #### P OCGLUC #### [facility] [address] [place] [address] Dr. Ling Martin Hematocrit (Bld) [Volume fraction] 43.7 % Normal 36.0-48.0 [facility] Comment on above: Performed By: #### P OCGLUC #### [facility] [address] [place] [address] Dr. Ling Martin Hemoglobin (Bld) [Mass/Vol] 14.0 g/dL Normal 12.0-16.0 [facility] Comment on above: Performed By: #### P OCGLUC #### [facility] [address] [place] [address] Dr. Ling Martin IG # 0.02 10e3/ul Normal 0.00-0.03 [facility] Comment on above: Performed By: #### P OCGLUC #### [facility] [address] [place] [address] Dr. Ling Martin IG % 0.2 % Normal 0.0-0.5 [facility] Comment on above: Performed By: #### P OCGLUC #### [facility] [address] [place] [address] Dr. Ling Martin LYMPH # 2.3 103/ul Normal 1.2-3.8 [facility] Comment on above: Performed By: #### P OCGLUC #### [facility] [address] [place] [address] Dr. Ling Martin Lymphocytes/100 WBC (Bld) 28.4 % Normal 20.5-60.0 [facility] Comment on above: Performed By: #### P OCGLUC #### [facility] [address] [place] [address] Dr. Ling Martin MANUAL DIFF REQ NO Normal [facility] Comment on above: Performed By: #### P OCGLUC #### [facility] [address] [place] [address] Dr. Ling Martin MCH (RBC) [Entitic mass] 28.7 pg Normal 26.7-34.0 [facility] Comment on above: Performed By: #### P OCGLUC #### [facility] [address] [place] [address] Dr. Ling Martin MCHC (RBC) [Mass/Vol] 32.0 g/dL Normal 29.9-35.2 [facility] Comment on above: Performed By: #### P OCGLUC #### [facility] [address] [place] [address] Dr. Ling Martin MCV (RBC) [Entitic vol] 89.5 fL Normal 81.0-99.0 [facility] Comment on above: Performed By: #### P OCGLUC #### [facility] [address] [place] [address] Dr. Ling Martin MONO # 0.5 103/ul Normal 0.3-0.8 [facility] Comment on above: Performed By: #### P OCGLUC #### [facility] [address] [place] [address] Dr. Ling Martin Monocytes/100 WBC (Bld) 6.5 % Normal 1.7-12.0 [facility] Comment on above: Performed By: #### P OCGLUC #### [facility] [address] [place] [address] Dr. Ling Martin NEUT # 5.1 103/ul Normal 1.4-6.5 [facility] Comment on above: Performed By: #### P OCGLUC #### [facility] [address] [address] [address] Ling Martin Neutrophils/100 WBC (Bld) 62.2 % Normal 43.0-75.0 [facility] Comment on above: Performed By: #### P OCGLUC #### [facility] [address] [address] [address] Lign Martin Platelet mean volume (Bld) [Entitic vol] 11.4 fL Normal 9.5-13.5 [facility] Comment on above: Performed By: #### P OCGLUC #### [facility] [address] [place] [address] Dr. Ling Martin PLT 179 103/ul Normal 150-450 [facility] Comment on above: Result Comment: no p lt clumps Performed By: #### P OCGLUC #### [facility] [address] [place] [address] Dr. Ling Martin RBC 4.88 106/ul Normal 4.20-5.40 [facility] Comment on above: Performed By: #### P OCGLUC #### [facility] [address] [place] [address] Dr. Ling Martin WBC 8.2 103/ul Normal 4.0-11.0 [facility] Comment on above: Performed By: #### P OCGLUC #### [facility] [address] [place] [address] Dr. Ling Martin CRPon 07-28-2021 CRP [Mass/Vol] mg/L Normal <=1.0 [facility] Comment on above: Performed By: #### C MP #### [facility] [address] [place] [address] Dr. Ling Martin LACTATE/LACTIC ACIDon 2021 Lactate [Moles/Vol] 1.6 mmol/L Normal 0.4-1.9 [facility] Comment on above: Performed By: #### C MP #### [facility] [address] [place] [address] Dr. Ling Martin LIPASEon 07-28-2021 Lipase [Catalytic activity/Vol] 65.0 U/L Critically low 73.0-393.0 [facility] Comment on above: Performed By: #### C BC #### [facility] [address] [place] [address] Dr. Ling Martin MAGNESIUMon 07-28-2021 Magnesium [Mass/Vol] 2.2 mg/dL Normal 1.8-2.4 [facility] Comment on above: Performed By: #### C MP #### [facility] [address] [place] [address] Dr. Ling Martin PHOSPHORUSon 07-28-2021 Phosphate [Mass/Vol] 4.0 mg/dL Normal 2.6-4.7 [facility] Comment on above: Performed By: #### C MP #### [facility] [address] [place] [address] Dr. Ling Martin PROF 14(COMP METB)on 022 Albumin [Mass/Vol] 4.1 g/dL Normal 3.4-5.0 [facility] Comment on above: Performed By: #### C BC #### [facility] [address] [place] [address] Dr. Ling Martin Albumin/Globulin [Mass ratio] 1.2 {ratio} Normal [facility] Comment on above: Performed By: #### C BC #### [facility] [address] [place] [address] Dr. Ling Martin ALP [Catalytic activity/Vol] 140 U/L Critically high 46-116 [facility] Comment on above: Performed By: #### C BC #### [facility] [address] [place] [address] Dr. Ling Martin ALT [Catalytic activity/Vol] 52 U/L Normal 14-59 [facility] Comment on above: Performed By: #### C BC #### [facility] [address] [place] [address] Dr. Ling Martin Anion gap [Moles/Vol] 13.8 mmol/L Normal [facility] Comment on above: Performed By: #### C BC #### [facility] [address] [place] [address] Dr. Ling Martin AST [Catalytic activity/Vol] 26 U/L Normal 15-37 [facility] Comment on above: Performed By: #### C BC #### [facility] [address] [place] [address] Dr. Ling Martin Bilirubin [Mass/Vol] 0.5 mg/dL Normal 0.2-1.0 [facility] Comment on above: Performed By: #### C BC #### [facility] [address] [place] [address] Dr. Ling Martin Calcium [Mass/Vol] 8.9 mg/dL Normal 8.5-10.1 [facility] Comment on above: Performed By: #### C BC #### [facility] [address] [place] [address] Dr. Ling Martin Chloride [Moles/Vol] 106 mmol/L Normal 98-107 [facility] Comment on above: Performed By: #### C BC #### [facility] [address] [place] [address] Dr. Ling Martin CO2 [Moles/Vol] 24.0 mmol/L Normal 21.0-32.0 [facility] Comment on above: Performed By: #### C BC #### [facility] [address] [place] [address] Dr. Ling Martin Creatinine [Mass/Vol] 0.91 mg/dL Normal 0.55-1.02 [facility] Comment on above: Performed By: #### C BC #### [facility] [address] [place] [address] Dr. Ling Martin EGFR-AF IRISH >60 Normal >=60 [facility] Comment on above: Performed By: #### C BC #### [facility] [address] [place] [address] Dr. Ling Martin EGFR-NON AF IRISH >60 Normal >=60 [facility] Comment on above: Performed By: #### C BC #### [facility] [address] [place] [address] Dr. Ling Martin Globulin (S) [Mass/Vol] 3.5 g/dL Normal [facility] Comment on above: Performed By: #### C BC #### [facility] [address] [address] [address] Ling Martin Glucose [Mass/Vol] 92 mg/dL Normal 74-106 [facility] Comment on above: Performed By: #### C BC #### [facility] [address] [address] [address] Ling Martin Potassium [Moles/Vol] 3.8 mmol/L Normal 3.5-5.1 [facility] Comment on above: Performed By: #### C BC #### [facility] [address] [address] [address] Ling Martin Protein [Mass/Vol] 7.6 g/dL Normal 6.4-8.2 [facility] Comment on above: Performed By: #### C BC #### [facility] [address] [address] [address] Ling Martin Sodium [Moles/Vol] 140 mmol/L Normal 136-145 [facility] Comment on above: Performed By: #### C BC #### [facility] [address] [address] [address] Ling Martin Urea nitrogen [Mass/Vol] 9.0 mg/dL Normal 7.0-18.0 [facility] Comment on above: Performed By: #### C BC #### [facility] [address] [address] [address] Ling Martin Urea nitrogen/Creatinine [Mass ratio] 9.9 mg/mg Normal [facility] Comment on above: Performed By: #### C BC #### [facility] [address] [address] [address] Ling Martin T4on 07-28-2021 T4 [Mass/Vol] 8.90 ug/dL Normal 4.80-13.90 [facility] Comment on above: Performed By: #### C BC #### [facility] [address] [address] [address] Ling Martin TSHon 07-28-2021 TSH 2.389 uIU/mL Normal 0.358-3.740 [facility] Comment on above: Performed By: #### C MP #### [facility] [address] [place] [address] Dr. Ling Martin UA RANDOM W/MICROSCOPICon BACTERIA MODERATE Abnormal NONE SEEN [facility] Comment on above: Performed By: #### Yelitza WHITTAKER, UMICRO #### [facility] [address] [place] [address] Dr. Ling Martin Bilirubin Ql (U) Negative Normal NEGATIVE [facility] Comment on above: Performed By: #### Yelitza WHITTAKER, UMICRO #### [facility] [address] [place] [address] Dr. Ling Martin CAST NONE SEEN Normal NONE SEEN [facility] Comment on above: Performed By: #### Yelitza WHITTAKER UMICRO #### [facility] [address] [place] [address] Dr. Ling Martin Clarity (U) CLEAR Normal CLEAR [facility] Comment on above: Performed By: #### Yelitza WHITTAKER UMICRO #### [facility] [address] [place] [address] Dr. Ling Martin Color (U) LT. YELLOW Normal YELLOW [facility] Comment on above: Performed By: #### Yelitza WHITTAKER UMICRO #### [facility] [address] [place] [address] Dr. Ling Martin Crystals LM Nom (Urine sed) NONE SEEN Normal NONE SEEN [facility] Comment on above: Performed By: #### Yelitza WHITTAKER UMICRO #### [facility] [address] [place] [address] Dr. Ling Martin Epithelial cells LM Ql (Urine sed) MODERATE Abnormal NONE SEEN /RARE [facility] Comment on above: Performed By: #### Yelitza WHITTAKER UMICRO #### [facility] [address] [place] [address] Dr. Ling Martin Glucose Ql (U) Negative Normal NEGATIVE [facility] Comment on above: Performed By: #### Yelitza WHITTAKER UMICRO #### [facility] [address] [place] [address] Dr. Ling Martin Hemoglobin Ql (U) SMALL Abnormal NEGATIVE [facility] Comment on above: Performed By: #### Yelitza WHITTAKER UMICRO #### [facility] [address] [place] [address] Dr. Ling Martin Ketones Ql (U) Negative Normal NEGATIVE [facility] Comment on above: Performed By: #### Yelitza WHITTAKER UMICRO #### [facility] [address] [place] [address] Dr. Ling Martin LEUKOCYTES TRACE Abnormal NEGATIVE [facility] Comment on above: Performed By: #### Yelitza WHITTAKER UMICRO #### [facility] [address] [place] [address] Dr. Ling Martin MUCOUS NONE SEEN Normal NONE SEEN [facility] Comment on above: Performed By: #### Yelitza WHITTAKER UMICRO #### [facility] [address] [place] [address] Dr. Ling Martin Nitrite Ql (U) Negative Normal NEGATIVE [facility] Comment on above: Performed By: #### Yelitza WHITTAKER UMICRO #### [facility] [address] [place] [address] Dr. Ling Martin pH (U) 5.5 [pH] Normal 5-9 [facility] Comment on above: Performed By: #### Yelitza WHITTAKER UMICRO #### [facility] [address] [place] [address] Dr. Ling Martin RBC 0-2 Normal 0-2 [facility] Comment on above: Performed By: #### Yelitza WHITTAKER UMICRO #### [facility] [address] [place] [address] Dr. Ling Martin SPEC GRAVITY 1.020 Normal 1.005-<=1.0 25 [facility] Comment on above: Performed By: #### Yelitza WHITTAKER UMICRO #### [facility] [address] [place] [address] Dr. Ling Martin UA PROTEIN Negative Normal NEGATIVE/ TRACE [facility] Comment on above: Performed By: #### Yelitza WHITTAKER UMICRO #### [facility] [address] [address] [address] Ling Martin Urobilinogen Qn (U) 1.0 {Sera'U}/dL Normal 0.2 - 1. 0 [facility] Comment on above: Performed By: #### Yelitza WHITTAKER UMICRO #### [facility] [address] [address] [address] Ling Martin WBC NONE SEEN Normal NONE SEEN [facility] Comment on above: Performed By: #### Yelitza WHITTAKER, UMICRO #### [facility] [address] [address] [address] Ling Martin MRI SHOULDER WO IVCON RTon 1 03-11-2020 [facility] No Panel Informationon 12-27 [facility] No Panel Informationon 11-21 [facility] SURGICAL PATHOLOGYon 018 SURGICAL [facility]OLOGY [facility]: [id number] Physician: ALANA ESPAÑA M.D. FINAL DIAGNOSIS1. Small [...] rectal polyp, biopsy (F) - Hyperplastic polyp.SS/lbk 10/14/[id number]. No microorganisms morphologically compatible with H. pylori [...] submitted in one cassette.Gross examination performed at [facility], [address] [place] [address] 10/13/2017 3:45:18 PMPatient ID #: [id number] of Report: 10/14/2017Date of Procedure: 10/13/2017Date of Receipt: 10/13/2017Submitted by: ALANA ESPAÑA M.D.Location: AVENDiagnostic interpretation performed at [facility], [address] [place] [address]. Normal [facility] Comment on above: Performed By: #### S ####See report for performing lab information. No Panel Information [facility] Vital Signs Date Time Vital Sign Value Performing Clinician Facility 05-24-2023 23:00-0400 Diastolic blood pressure 87 mm[Hg] MD Farhat Pineda Work Phone: [facility] 05-24-2023 23:00-0400 Heart rate 83 /min MD Farhat Pineda Work Phone: [facility] 05-24-2023 23:00-0400 Respiratory rate 20 /min MD Farhat Pineda Work Phone: [facility] 05-24-2023 23:00-0400 SaO2% (BldA) [Mass fraction] 97 % MD Farhat Pineda Work Phone: [facility] 05-24-2023 23:00-0400 Systolic blood pressure 157 mm[Hg] MD Farhat Pineda Work Phone: [facility] 05-24-2023 20:04-0400 Body height 157.48 cm MD Farhat Pineda Work Phone: [facility] 05-24-2023 20:04-0400 Body weight 112.7 kg MD Farhat Pineda Work Phone: [facility] 05-24-2023 20:03-0400 Body temperature 97.6 [degF] MD Farhat Pineda Work Phone: [facility] 05-03-2023 14:45-0400 Diastolic blood pressure 79 mm[Hg] Mika Hernandez MD Work Phone: [facility] 05-03-2023 14:45-0400 Heart rate 67 /min Mika Hernandez MD Work Phone: [facility] 05-03-2023 14:45-0400 Respiratory rate 16 /min Mika Hernandez MD Work Phone: [facility] 05-03-2023 14:45-0400 SaO2% (BldA) [Mass fraction] 96 % Mika Hernandez MD Work Phone: [facility] 05-03-2023 14:45-0400 Systolic blood pressure 131 mm[Hg] Mika Hernandez MD Work Phone: [facility] 05-03-2023 14:13-0400 Body temperature 97.2 [degF] Mika Hernandez MD Work Phone: [facility] 03-26-2023 09:34-0500 Blood Pressure Location [facility] 03-26-2023 09:34-0500 Body temperature 98.06 [degF] [facility] 03-26-2023 09:34-0500 Diastolic blood pressure 84 mm[Hg] [place] [facility] 03-26-2023 09:34-0500 Heart rate 95 /min [place] [facility] 03-26-2023 09:34-0500 SaO2% (BldA) [Mass fraction] 98 % [place] [facility] 03-26-2023 09:34-0500 Systolic blood pressure 116 mm[Hg] [place] [facility] 02-08-2023 00:05-0500 Heart rate 82 /min MD Farhat Pineda Work Phone: [facility] 02-08-2023 00:05-0500 Respiratory rate 16 /min MD Farhat Pineda Work Phone: [facility] 02-08-2023 00:05-0500 SaO2% (BldA) [Mass fraction] 98 % MD Farhat Pineda Work Phone: [facility] 02-07-2023 23:16-0500 Body temperature 98.1 [degF] MD Farhat Pineda Work Phone: [facility] 02-07-2023 23:16-0500 Diastolic blood pressure 83 mm[Hg] MD Farhat Pineda Work Phone: [facility] 02-07-2023 23:16-0500 Systolic blood pressure 159 mm[Hg] MD Farhat Pineda Work Phone: [facility] 02-07-2023 23:00-0500 Body height 157.48 cm MD Farhat Pineda Work Phone: [facility] 02-07-2023 23:00-0500 Body weight 103.5 kg MD Farhat Pineda Work Phone: [facility] 01-14-2023 15:20-0500 Heart rate 100 /min [facility] 01-14-2023 15:20-0500 Respiratory rate 12 /min [facility] 01-14-2023 15:20-0500 SaO2% (BldA) [Mass fraction] 96 % [facility] 01-14-2023 14:20-0500 Diastolic blood pressure 60 mm[Hg] [facility] 01-14-2023 14:20-0500 Heart rate 79 /min [facility] 01-14-2023 14:20-0500 Respiratory rate 10 /min [facility] 01-14-2023 14:20-0500 SaO2% (BldA) [Mass fraction] 95 % [facility] 01-14-2023 14:20-0500 Systolic blood pressure 127 mm[Hg] [facility] 01-14-2023 13:20-0500 Diastolic blood pressure 91 mm[Hg] [facility] 01-14-2023 13:20-0500 Heart rate 82 /min [facility] 01-14-2023 13:20-0500 Respiratory rate 19 /min [facility] 01-14-2023 13:20-0500 SaO2% (BldA) [Mass fraction] 95 % [facility] 01-14-2023 13:20-0500 Systolic blood pressure 148 mm[Hg] [facility] 01-14-2023 12:32-0500 Diastolic blood pressure 100 mm[Hg] [facility] 01-14-2023 12:32-0500 Systolic blood pressure 140 mm[Hg] [facility] 01-14-2023 11:20-0500 Heart rate 78 /min [facility] 01-14-2023 11:20-0500 Mean blood pressure 103 mm[Hg] [facility] 01-14-2023 11:20-0500 Respiratory rate 21 /min [facility] 01-14-2023 10:45-0500 Body temperature 97.7 [degF] [facility] 01-14-2023 10:45-0500 Heart rate 75 /min [facility] 01-14-2023 10:45-0500 Respiratory rate 23 /min [facility] 01-09-2023 12:01-0500 Diastolic blood pressure 83 mm[Hg] MD Farhat Pineda Work Phone: [facility] 01-09-2023 12:01-0500 Heart rate 103 /min MD Farhat Pineda Work Phone: [facility] 01-09-2023 12:01-0500 Systolic blood pressure 146 mm[Hg] MD Farhat Pineda Work Phone: [facility] 01-09-2023 09:33-0500 Respiratory rate 20 /min MD Farhat Pineda Work Phone: [facility] 01-09-2023 09:33-0500 SaO2% (BldA) [Mass fraction] 96 % MD Farhat Pineda Work Phone: [facility] 01-09-2023 04:16-0500 Body height 157.48 cm MD Farhat Pineda Work Phone: [facility] 01-09-2023 04:16-0500 Body temperature 97.9 [degF] MD Farhat Pineda Work Phone: [facility] 01-09-2023 04:16-0500 Body weight 95.25 kg MD Farhat Pineda Work Phone: [facility] 01-05-2023 14:36-0500 Body height 160 cm Eleanor Bicanovsky DO Work Phone: [facility] 01-05-2023 14:36-0500 Body weight 99.79 kg Eleanor Bicanovsky DO Work Phone: [facility] 01-05-2023 14:36-0500 Diastolic blood pressure 79 mm[Hg] Eleanor Bicanovsky DO Work Phone: [facility] 01-05-2023 14:36-0500 Heart rate 80 /min Eleanor Bicanovsky DO Work Phone: [facility] 01-05-2023 14:36-0500 Systolic blood pressure 130 mm[Hg] Eleanor Bicanovsky DO Work Phone: [facility] 12-22-2022 14:15-0500 Body height 159.4 cm Pacc 2 Work Phone: [facility] 12-22-2022 14:15-0500 Body temperature 97.2 [degF] Pacc 2 Work Phone: [facility] 12-22-2022 14:15-0500 Body weight 97.52 kg Pacc 2 Work Phone: [facility] 12-22-2022 14:15-0500 Diastolic blood pressure 83 mm[Hg] Pacc 2 Work Phone: [facility] 12-22-2022 14:15-0500 Heart rate 77 /min Pacc 2 Work Phone: [facility] 12-22-2022 14:15-0500 Respiratory rate 16 /min Pacc 2 Work Phone: [facility] 12-22-2022 14:15-0500 SaO2% (BldA) [Mass fraction] 99 % Pacc 2 Work Phone: [facility] 12-22-2022 14:15-0500 Systolic blood pressure 135 mm[Hg] Pacc 2 Work Phone: [facility] 11-30-2022 11:18-0400 Body height 157.5 cm Bipin Juan Joseonedaniel [employer] Work Phone: [facility] 11-30-2022 11:18-0400 Body weight 99.34 kg Bipin Juan Joseonedaniel [employer] Work Phone: [facility] 11-30-2022 11:18-0400 Diastolic blood pressure 88 mm[Hg] Bipin Pieronek [employer] Work Phone: [facility] 11-30-2022 11:18-0400 Heart rate 82 /min Bipin Juan Joseonek [employer] Work Phone: [facility] 11-30-2022 11:18-0400 Systolic blood pressure 134 mm[Hg] Bipin Pieronek [employer] Work Phone: [facility] 11-26-2022 16:16-0400 Body height 159.4 cm Thaddeus Diggs MD Work Phone: [facility] 11-26-2022 16:16-0400 Body temperature 98.49 [degF] Thaddeus Diggs MD Work Phone: [facility] 11-26-2022 16:16-0400 Body weight 98.88 kg Thaddeus Diggs MD Work Phone: [facility] 11-26-2022 16:16-0400 Diastolic blood pressure 75 mm[Hg] Thaddeus Diggs MD Work Phone: [facility] 11-26-2022 16:16-0400 Heart rate 93 /min Thaddeus Diggs MD Work Phone: [facility] 11-26-2022 16:16-0400 SaO2% (BldA) [Mass fraction] 97 % Thaddeus Diggs MD Work Phone: [facility] 11-26-2022 16:16-0400 Systolic blood pressure 106 mm[Hg] Thaddeus Diggs MD Work Phone: [facility] 11-13-2022 08:08-0400 Body height 157.5 cm Thaddeus Diggs MD Work Phone: [facility] 11-13-2022 08:08-0400 Body temperature 97.5 [degF] Thaddeus Diggs MD Work Phone: [facility] 11-13-2022 08:08-0400 Body weight 100.7 kg Thaddeus Diggs MD Work Phone: [facility] 11-13-2022 08:08-0400 Diastolic blood pressure 81 mm[Hg] Thaddeus Diggs MD Work Phone: [facility] 11-13-2022 08:08-0400 Heart rate 70 /min Thaddeus Diggs MD Work Phone: [facility] 11-13-2022 08:08-0400 SaO2% (BldA) [Mass fraction] 97 % Thaddeus Diggs MD Work Phone: [facility] 11-13-2022 08:08-0400 Systolic blood pressure 115 mm[Hg] Thaddeus Diggs MD Work Phone: [facility] 10-23-2022 15:08-0400 Body height 158.2 cm Dariel Le MD Work Phone: [facility] 10-23-2022 15:08-0400 Body weight 99.79 kg Dariel Le MD Work Phone: [facility] 10-23-2022 15:08-0400 Diastolic blood pressure 80 mm[Hg] Dariel Le MD Work Phone: [facility] 10-23-2022 15:08-0400 Heart rate 79 /min Dariel Le MD Work Phone: [facility] 10-23-2022 15:08-0400 Systolic blood pressure 128 mm[Hg] Dariel Le MD Work Phone: [facility] 10-06-2022 14:08-0400 Body height 158.8 cm Pacc 2 Work Phone: [facility] 10-06-2022 14:08-0400 Body temperature 97.9 [degF] Pacc 2 Work Phone: [facility] 10-06-2022 14:08-0400 Body weight 101.15 kg Pacc 2 Work Phone: [facility] 10-06-2022 14:08-0400 Diastolic blood pressure 78 mm[Hg] Pacc 2 Work Phone: [facility] 10-06-2022 14:08-0400 Heart rate 68 /min Pacc 2 Work Phone: [facility] 10-06-2022 14:08-0400 Respiratory rate 16 /min Pacc 2 Work Phone: [facility] 10-06-2022 14:08-0400 SaO2% (BldA) [Mass fraction] 100 % Pacc 2 Work Phone: [facility] 10-06-2022 14:08-0400 Systolic blood pressure 114 mm[Hg] Pacc 2 Work Phone: [facility] 10-02-2022 13:48-0400 Body weight 99.79 kg Eleanor Bicanovsky DO Work Phone: [facility] 10-02-2022 13:48-0400 Diastolic blood pressure 72 mm[Hg] Eleanor Bicanovsky DO Work Phone: [facility] 10-02-2022 13:48-0400 Heart rate 74 /min Eleanor Bicanovsky DO Work Phone: [facility] 10-02-2022 13:48-0400 Systolic blood pressure 110 mm[Hg] Eleanor Bicanovsky DO Work Phone: [facility] 06-16-2022 15:29-0400 Body weight 102.92 kg Luis F Barraza APRN.[facility] [employer] Work Phone: [facility] 06-16-2022 15:29-0400 Diastolic blood pressure 77 mm[Hg] Luis F Barraza APRN.[facility] Work Phone: [facility] 06-16-2022 15:29-0400 Heart rate 84 /min Luis F Barraza APRN.[facility] Work Phone: [facility] 06-16-2022 15:29-0400 SaO2% (BldA) [Mass fraction] 99 % Luis F Barraza APRN.[facility] Work Phone: [facility] 06-16-2022 15:29-0400 Systolic blood pressure 135 mm[Hg] Luis F Barraza APRN.[facility] Work Phone: [facility] 06-11-2022 11:41-0400 Body height 154.9 cm Eleanor Bicanovsky DO Work Phone: [facility] 06-11-2022 11:41-0400 Body weight 96.16 kg Eleanor Bicanovsky DO Work Phone: [facility] 06-11-2022 11:41-0400 Diastolic blood pressure 71 mm[Hg] Eleanor Bicanovsky DO Work Phone: [facility] 06-11-2022 11:41-0400 Heart rate 81 /min Eleanor Bicanovsky DO Work Phone: [facility] 06-11-2022 11:41-0400 Systolic blood pressure 123 mm[Hg] Eleanor Bicanovsky DO Work Phone: [facility] 01-01-2022 19:31-0500 Body temperature 97.88 [degF] Ladarius Mack [facility] 01-01-2022 19:31-0500 Diastolic blood pressure 73 mm[Hg] Ladarius Mack [facility] 01-01-2022 19:31-0500 Heart rate 74 /min Ladarius Mack [facility] 01-01-2022 19:31-0500 Respiratory rate 18 /min Ladarius Mack [facility] 01-01-2022 19:31-0500 SaO2% (BldA) [Mass fraction] 99 % Ladarius Mack [facility] 01-01-2022 19:31-0500 Systolic blood pressure 138 mm[Hg] Ladarius Mack [facility] 12-17-2021 15:12-0500 Diastolic blood pressure 72 mm[Hg] Dulce Serrano APRN.[facility] Work Phone: [facility] 12-17-2021 15:12-0500 Heart rate 89 /min Dulce Serrano AD TRAFFICKER.[facility] Work Phone: [facility] 12-17-2021 15:12-0500 SaO2% (BldA) [Mass fraction] 99 % Dulce Serrano AD TRAFFICKER.[facility] Work Phone: [facility] 12-17-2021 15:12-0500 Systolic blood pressure 127 mm[Hg] Dulce Serrano APRN.[facility] Work Phone: [facility] 11-29-2021 09:51-0400 Body temperature 98.6 [degF] Theron Paige [facility] 11-29-2021 09:51-0400 Diastolic blood pressure 95 mm[Hg] Theron Paige [facility] 11-29-2021 09:51-0400 Heart rate 69 /min Theron Paige [facility] 11-29-2021 09:51-0400 Respiratory rate 16 /min Theron Paige [facility] 11-29-2021 09:51-0400 SaO2% (BldA) [Mass fraction] 98 % Theron Paige [facility] 11-29-2021 09:51-0400 Systolic blood pressure 132 mm[Hg] Theron Paige [facility] 09-17-2021 12:41-0400 Diastolic blood pressure 60 mm[Hg] Aristeo Jimenez APRN.[facility] Work Phone: [facility] 09-17-2021 12:41-0400 Heart rate 80 /min Aristeo Jimenez APRN.[facility] Work Phone: [facility] 09-17-2021 12:41-0400 SaO2% (BldA) [Mass fraction] 100 % Aristeo Jimenez APRN.[facility] Work Phone: [facility] 09-17-2021 12:41-0400 Systolic blood pressure 130 mm[Hg] Aristeo Jimenez APRN.[facility] Work Phone: [facility] Encounters Encounter Date Encounter Type Care Provider Facility Start: 06-02-2023 End: 06-02-2023 [facility] LUIS F BARRAZA Facility:[facility] Start: 05-25-2023 End: 05-27-2023 Evaluation and management of inpatient Farhat M Hoy Facility:[facility] Start: 05-25-2023 Evaluation and manag ement of inpatient MD Farhat Pineda Work Phone: [facility] Work Phone: Start: 05-03-2023 End: 05-03-2023 ambulatory DAVIN DOWLING Facility:[facility] Start: 05-03-2023 End: 05-03-2023 Subsequent hospital visit by physician Mika Hernandez MD Work Phone: Gastroenterology Comment on above: Dysphagia, unspecifi ed type [R13.10] Start: 04-30-2023 Telephone encounter Krista calvo DO Work Phone: Pain Management Comment on above: Appointment (Pain) Start: 04-26-2023 Telephone encounter Sara Storm BELT AND LINK ASSEMBLY SUPERVISOR Work Phone: Endocrinology Comment on above: Ambulatory Social Wo rk Appointment Start: 04-23-2023 End: 04-23-2023 ambulatory [facility]AT PINEDA [facility] Start: 04-23-2023 End: 04-23-2023 ambulatory Latanya Peralta CCC-ELECTRONICS ENGINEERING TECHNICIAN Work Phone: [facility] Speech Therapy Comment on above: Dysphagia, unspecifi ed type (Primary Dx) Start: 04-23-2023 End: 04-23-2023 Subsequent hospital visit by physician Gi/Gu [facility] Work Phone: [facility] Radiology Gastrointestinal Comment on above: Dysphagia, unspecifi ed type [R13.10] Start: 04-22-2023 Telephone encounter Sara Storm BELT AND LINK ASSEMBLY SUPERVISOR Work Phone: Endocrinology Comment on above: Ambulatory Social Wo rk Start: 04-21-2023 Telephone encounter Sara Storm BELT AND LINK ASSEMBLY SUPERVISOR Work Phone: Endocrinology Comment on above: Ambulatory Social Wo rk Start: 04-17-2023 MC Get Medical Advice Bud Ca AD TRAFFICKER.[facility] Work Phone: Endocrinology Comment on above: Trulicity Refill dos e Start: 04-15-2023 End: 04-15-2023 ambulatory Alana Snell AD TRAFFICKER.[facility] Work Phone: Pain Management Comment on above: Pain Questionnaire Start: 04-15-2023 E-mail encounter fro leatha caregiver Alana Snell AD TRAFFICKER.[facility] Work Phone: [facility] Start: 04-15-2023 Telephone encounter Shruthi Rosales RT(R ) Radiology Comment on above: Appointment Nausea (Primary Dx) LMTCB Start: 04-15-2023 End: 04-15-2023 Subsequent hospital visit by physician Ashley Rust Radiology Comment on above: Nausea [R11.0] Start: 04-14-2023 Telephone encounter Bud Ca AD TRAFFICKER.[facility] Work Phone: Endocrinology Comment on above: Returning Patient's Call Patient Question Nausea (Primary Dx); Abdominal pain, unspecified abdominal location Start: 04-07-2023 ambulatory Krista E Girgi s DO Work Phone: Pain Management Comment on above: PAIN QUESTIONNAIRE Start: 04-07-2023 E-mail encounter fro m caregiver Krista E Krista DO Work Phone: [facility] Start: 04-02-2023 ambulatory Lizzie emery MD Work Phone: Endocrinology Comment on above: labs Start: 04-02-2023 E-mail encounter fro m caregiver Lizzie Leavitt MD Work Phone: [facility] Start: 04-02-2023 Telephone encounter Sara HIRSCHW Work Phone: Endocrinology Comment on above: Ambulatory Social Wo rk Start: 04-01-2023 End: 04-01-2023 ambulatory Jimmy Feliciano RT(R) Radiology Comment on above: Radiology XR Start: 04-01-2023 End: 04-01-2023 Patient encounter procedure Jimmy Feliciano RT(R) MONO BRAVO Comment on above: Cervical radiculopat hy (Primary Dx); Acute pain of left shoulder; Neck pain Start: 03-31-2023 Telephone encounter Sara Jennifer BELT AND LINK ASSEMBLY SUPERVISOR Work Phone: Endocrinology Comment on above: Ambulatory Social Wo rk Start: 03-29-2023 End: 03-30-2023 ambulatory LIZZIE LEAVITT Facility:[facility] Start: 03-26-2023 Telephone encounter Sara Storm BELT AND LINK ASSEMBLY SUPERVISOR Work Phone: Endocrinology Comment on above: Ambulatory Social Wo rk Start: 03-26-2023 End: 03-27-2023 ambulatory PA-C JUAN MASON Facility:[facility] Start: 03-26-2023 End: 03-26-2023 Patient encounter procedure JUAN MASON [facility] Start: 03-24-2023 Telephone encounter aSra Storm BELT AND LINK ASSEMBLY SUPERVISOR Work Phone: Endocrinology Comment on above: Ambulatory Social Wo rk Start: 03-22-2023 End: 03-22-2023 ambulatory ADILENE ORDOÑEZ Facility:[facility] Start: 03-22-2023 End: 03-22-2023 ambulatory Adilene Ordoñez AD TRAFFICKER.[facility] Work Phone: Gastroenterology Comment on above: Dysphagia, unspecifi ed type (Primary Dx) Start: 03-22-2023 End: 03-22-2023 Telemedicine consultation with patient Adilene Ordoñez AD TRAFFICKER.[facility] Work Phone: [facility] Start: 03-10-2023 ambulatory Prince Tucker Facility:[facility] Start: 03-10-2023 Registered Recurring MD Deidre Pineda Work Phone: [facility] Start: 02-08-2023 End: 02-08-2023 Emergency department patient visit Candice Sifuentes Facility:[facility] Start: 02-07-2023 End: 02-08-2023 Emergency department patient visit MD Farhat Pineda Work Phone: [facility] Work Phone: Start: 02-05-2023 End: 02-05-2023 ambulatory BIPIN NINA Facility:[facility] Start: 01-18-2023 Telephone encounter Pacc Lorai n 2 Work Phone: Pre Anesthesia Comment on above: Appointment Confirma tion Start: 01-14-2023 End: 01-14-2023 Emergency department patient visit Ladarius Mack Facility:[facility] Start: 01-14-2023 End: 01-14-2023 Emergency department patient visit Ladarius Mack [facility] Start: 01-13-2023 Telephone encounter Pacc Lorai n 1 Work Phone: Pre Anesthesia Comment on above: Missed Appointment Start: 01-09-2023 End: 01-09-2023 Emergency department patient visit Bipin Roth Jr Facility:[facility] Start: 01-09-2023 End: 01-09-2023 Emergency department patient visit MD Farhat Pineda Work Phone: [facility] Work Phone: Start: 01-05-2023 End: 01-05-2023 ambulatory ELEANOR KENNY Facility:[facility] Start: 01-05-2023 End: 01-05-2023 Patient encounter procedure Eleanor Kenny DO Work Phone: CB/Gynecology Comment on above: Abnormal uterine ble eding due to endometrial polyp (Primary Dx); Counseling for control, intrauterine device; Postmenopausal bleeding Start: 12-30-2022 End: 12-30-2022 ambulatory FARHAT PINEDA Facility:[facility] Start: 12-28-2022 Admission to [facility] Eleanor Kenny DO Work Phone: CB/Gynecology Comment on above: Surgery timing Start: 12-28-2022 ambulatory Eleanor Kenny DO Work Phone: [facility] Start: 12-23-2022 ambulatory Lizzie emery MD Work Phone: Endocrinology Comment on above: labs Start: 12-23-2022 E-mail encounter fro m caregiver Lizzie Leavitt MD Work Phone: [facility] Start: 12-22-2022 End: 12-23-2022 ambulatory LIZZIE LEAVITT Facility:[facility] Start: 12-22-2022 End: 12-22-2022 Periodic preventive med est patient 18-39 yrs Pac Finney 2 Work Phone: Pre Anesthesia Comment on [...] Start: 12-22-2022 End: 12-22-2022 Preprocedural examination done [facility] Finney 2 Work Phone: [facility] Work Phone: Start: 12-21-2022 Telephone encounter [facility] Akanksha hernandez 2 Work Phone: Pre Anesthesia Comment on above: Missed Appointment Start: 12-02-2022 Refill Marichuy santana MD Work Phone: Ophthalmology Comment on above: Refill Request Start: 12-01-2022 ambulatory Dulce Serrano APRN.[facility] Work Phone: Neurology Comment on above: Sleep supplies Start: 11-30-2022 End: 11-30-2022 ambulatory BIPIN NINA Facility:[facility] Start: 11-30-2022 End: 11-30-2022 Patient encounter procedure Bipin Nina APRN.[facility] Work Phone: Endocrinology Comment on above: Type [...] Start: 11-26-2022 End: 11-26-2022 ambulatory THADDEUS DIGGS Facility:[facility] Start: 11-26-2022 End: 11-26-2022 Patient encounter procedure Thaddeus Diggs MD Work Phone: Neurology Comment on above: 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); Cognitive complaints Start: 11-24-2022 End: 11-25-2022 ambulatory Dulce Serrano APRN.[facility] Work Phone: Neurology Comment on above: TALIA (obstructive sle ep apnea) (Primary Dx); Chronic insomnia; Psychophysiological insomnia; Rheumatoid arthritis of multiple sites without rheumatoid factor ([facility]); Type 2 diabetes mellitus without complication, without long-term current use of insulin ([facility]); Anemia, unspecified type; Chronic lymphocytic thyroiditis; Fibromyalgia; Obesity, Class I, BMI 30-34.9; Gastroesophageal reflux disease without esophagitis; Type 2 diabetes mellitus without retinopathy ([facility]); Dysmetabolic syndrome X Start: 11-24-2022 End: 11-24-2022 Telemedicine consultation with patient Dulce Serrano APRN.[facility] Work Phone: [place] Start: 11-15-2022 ambulatory Lizzie emery MD Work Phone: Endocrinology Comment on above: Thyroid US yuli m apping Start: 11-13-2022 End: 11-13-2022 ambulatory THADDEUS DIGGS Facility:[facility] Start: 11-13-2022 End: 11-13-2022 Patient encounter procedure Thaddeus Diggs MD Work Phone: Neurology Comment on above: Cognitive complaints (Primary Dx); History of gastric bypass; Sleep apnea, unspecified type Start: 11-12-2022 ambulatory FARHAT PINEDA Facility: [facility] Start: 11-12-2022 End: 11-12-2022 Subsequent hospital visit by physician Armond [facility] Work Phone: [facility] Radiology Ultrasound Comment on above: 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] Start: 10-28-2022 Orders Only Bud Dick Ca AD TRAFFICKER.[facility] Work Phone: Endocrinology Comment on above: Type 2 diabetes cain itus with hypoglycemia without coma, without long-term current use of insulin (HCC) Start: 10-27-2022 Documentation procedure Mammog ruth Coordinator [facility] Start: 10-27-2022 Letter encounter Mammography Coordinator [facility] Department Start: 10-27-2022 End: 10-27-2022 ambulatory FARHAT PINEDA Facility:[facility] Start: 10-27-2022 End: 10-27-2022 Subsequent hospital visit by physician [facility] Comment on above: Encounter for screen ing mammogram for malignant neoplasm of breast [Z12.31] Start: 10-26-2022 End: 10-26-2022 ambulatory Bipin Nina AD TRAFFICKER.[facility] Work Phone: Endocrinology Comment on above: Medication / dosage Medication / dose Start: 10-23-2022 End: 10-23-2022 ambulatory FARHAT PINEDA Facility:[facility] Start: 10-23-2022 End: 10-23-2022 Patient encounter procedure Dariel Le MD Work Phone: Cardiology Comment on above: Preop cardiovascular exam (Primary Dx); Prediabetes; TALIA (obstructive sleep apnea); Obesity, Class II, BMI 35-39.9 Start: 10-23-2022 End: 10-23-2022 Patient encounter status Dariel Le MD Work Phone: [facility] Work Phone: Start: 10-23-2022 Telephone encounter Luis F solis AD TRAFFICKER.[facility] Work Phone: Cardiology Comment on above: Appointment Start: 10-09-2022 End: 10-10-2022 ambulatory LIZZIE LEAVITT Facility:[facility] Start: 10-09-2022 Encounter for other preprocedural examination LUIS F BARRAZA [facility] Start: 10-06-2022 End: 10-06-2022 ambulatory ELEANOR KENNY Facility:[facility] Start: 10-06-2022 Encounter for other preprocedural examination ELEANOR KENNY [facility] Start: 10-06-2022 End: 10-06-2022 Admission to establishment Pac Av 2 Work Phone: [facility] Start: 10-06-2022 End: 10-06-2022 ambulatory [facility] 2 Work Phone: Pre Anesthesia Comment on above: Pre-op examination ( Primary Dx); Morbid obesity (HCC); TALIA (obstructive sleep apnea); Type 2 diabetes mellitus without complication, without long-term current use of insulin (HCC) Start: 10-06-2022 End: 10-06-2022 Preprocedural examination done Pac 2 Work Phone: [facility] Work Phone: Start: 10-06-2022 Telephone encounter Norm Hanna PA-C Work Phone: Pre Anesthesia Comment on above: Pre-Op Exam (increas ed palpations pre op recommendations and optimization ) Start: 10-02-2022 End: 10-02-2022 ambulatory FARHAT PINEDA Facility:[facility] Start: 10-02-2022 End: 10-02-2022 Patient encounter procedure [...] with patient Lizzie Leavitt MD Work Phone: [facility] Start: 09-29-2022 End: 09-30-2022 ambulatory FARHAT Leatha Edu Facility:[facility] Start: 09-29-2022 End: 09-29-2022 Patient encounter procedure Eleanor Kenny DO Work Phone: CB/Gynecology Comment on above: No-show for appointm ent (Primary Dx) Start: 09-29-2022 End: 09-29-2022 Telemedicine consultation with patient Eleanor Kenny DO Work Phone: [facility] Start: 09-28-2022 Chart abstracting [facility] Work Phone: Neurology Comment on above: CMN Start: 09-16-2022 Telephone encounter Eleanor Kenny DO Work Phone: CB/Gynecology Comment on above: Scheduling Start: 09-10-2022 End: 09-10-2022 ambulatory JANENE HARRISON Facility:[facility] Start: 09-10-2022 End: 09-10-2022 ambulatory Janene Harrison MD Work Phone: Obstetrics/Gynecology Start: 09-10-2022 End: 09-10-2022 Patient encounter procedure Janene Harrison MD Work Phone: [facility] Start: 09-07-2022 ambulatory Eleanor Kenny DO Work Phone: CB/Gynecology Comment on above: Post menopause bleed ing Start: 07-16-2022 End: 07-16-2022 ambulatory LIZZIE [facility]ON[facility]D [facility] Facility:[facility] Start: 07-13-2022 Get Medical Advice Dulce Serrano APRN.[facility] Work Phone: Sleep Disorders Comment on above: Refill 10 mg zalepon Start: 07-05-2022 End: 07-06-2022 ambulatory Kathleen Cho RN NURSE MANAGER SURGERY Comment on above: Patient Update Start: 07-05-2022 Telephone encounter Dannie brito MD Work Phone: [facility] Provider Adult Comment on above: Patient Update Start: 06-30-2022 End: 06-30-2022 ambulatory BIPIN NINA Facility:[facility] Start: 06-30-2022 E-mail encounter fro m caregiver [facility] Provider [facility] Start: 06-30-2022 Patient encounter procedure [facility] Prov ider Diabetic Education Main X20 Comment on above: Message from [facility] Machine Shop Specialist and Dietitian, Nadia Start: 06-29-2022 ambulatory Bipin sanchez APRN.[facility] Work Phone: Endocrinology Comment on above: Sugar levels Start: 06-24-2022 End: 06-25-[address] FARHAT PINEDA . Facility: Start: 06-23-2022 End: 06-23-2022 ambulatory MARICHUY SUAREZ Facility:[facility] Start: 06-23-2022 End: 06-23-2022 Patient encounter procedure Marichuy Suarez MD Work Phone: Ophthalmology Comment on above: Dermatochalasis of b oth upper eyelids (Primary Dx); Myogenic ptosis of bilateral eyelids; Facial rhytids Start: 06-23-2022 End: 06-23-2022 ambulatory BIPIN NINA Facility:[facility] Start: 06-21-2022 ambulatory Lizzie emery MD Work Phone: Endocrinology Comment on above: Blood sugar levels Start: 06-16-2022 End: 06-16-2022 ambulatory LUIS F BARRAZA Facility:[facility] Start: 06-16-2022 End: 06-17-2022 ambulatory FARHAT PINEDA Facility:[facility] Start: 06-16-2022 End: 06-16-2022 Patient encounter procedure Luis F Barraza AD TRAFFICKER.[facility] Work Phone: Cardiology Comment on above: PVC (premature ventr icular contraction) (Primary Dx); Palpitations; TALIA (obstructive sleep apnea); Localized edema Start: 06-15-2022 Telephone encounter Lizzie Leavitt MD Work Phone: Endocrinology Comment on above: Low Blood Sugars Start: 06-11-2022 End: 06-11-2022 Patient encounter status Eleanor Kenny DO Work Phone: CB/Gynecology Start: 06-11-2022 End: 06-11-2022 ambulatory ELEANOR KENNY Facility:[facility] Start: 06-11-2022 End: 06-11-2022 Patient encounter procedure [...] Facility:[facility] Start: 05-04-2022 Telephone encounter Dulce Qureshi APRN.[facility] Work Phone: Neurology Comment on above: PAP Therapy Follow U p Start: 04-04-2022 Encounter for genera l adult medical examination without abnormal findings DR FARHAT PINEDA . [facility] Start: 04-02-2022 End: 04-03-[address] FARHAT PINEDA . Facility:[facility] Start: 04-01-2022 End: 04-01-[address] FARHAT PINEDA . Facility:[facility] Start: 04-01-2022 End: 04-01-2022 Encounter for general adult medical examination without abnormal findings DR FARHAT PINEDA . Facility:[facility] Start: 03-31-2022 End: 04-01-[address] FARHAT PINEDA . Facility:[facility] Start: 03-30-2022 Refill Dulce Serrano APRN.[facility] Work Phone: Sleep Disorders Comment on above: [...] with patient Opal Aj Work Phone: [facility] Start: 01-06-2022 End: 01-07-[address] FARHAT PINEDA . Facility:[facility] Start: 01-01-2022 End: 01-01-2022 Emergency department patient visit Ladarius Mack [facility] Start: 12-29-2021 Telephone encounter Opal Santana Aj (Histor) Work Phone: Neurology Comment on above: PAP Therapy Follow U p (DOWNLOAD) Start: 12-25-2021 End: 12-26-[address] FARHAT PINEDA . Facility:[facility] Start: 12-17-2021 End: 12-17-2021 Patient encounter procedure Dulce Serrano APRN.[facility] Work Phone: Sleep Disorders Comment on above: [...] 11-29-2021 Emergency department patient visit Theron Grecia [facility] Start: 10-30-2021 Telephone encounter Cata Moralez RN Work Phone: Neurology Comment on above: Medication Problem Start: 10-17-2021 End: 10-17-2021 [facility] Marlene Lazcano PhD Work Phone: Neurology [...] Marlene Lazcano PhD Work Phone: [facility] Start: 09-17-2021 End: 09-17-2021 ambulatory Marta Pratt [...] RN Work Phone: Neurology Comment on above: Lead Manufacturing Engineering Tech - O 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 (clairfy medications ) Start: 09-10-2021 End: 09-10-2021 [facility] Marlene Lazcano PhD Work Phone: Sleep Psychology [...] patient Lorenzo Perry DO Work Phone: [facility] Start: 09-01-2021 End: 09-02-2021 ambulatory GONZALO LYONS Facility: Start: 08-25-2021 End: 08-25-2021 [facility] Gloria Snell [facility] Work Phone: [facility] Comment on above: Generalized anxiety disorder (Primary Dx) Start: 08-07-2021 Telephone encounter Dulce Qureshi AD TRAFFICKER[employer] [employer] Work Phone: Neurology Comment on above: PAP Therapy Follow U p (NEED MACHINE OR SD CHIP TO BE SENT TO DME) Start: 08-04-2021 Refill Mahogany Reyes APRN.CNP Work Phone: Neurology Comment on above: Refill Request Start: 07-28-2021 End: 07-29-[address] FARHAT PINEDA . Facility: Start: 07-04-2021 Refill Marlene Lazcano Ph D Work Phone: [facility] [place] Comment on above: Refill Request Start: 05-12-2021 End: 05-12-2021 [facility] Gloria Snell [facility] Work Phone: [facility] Comment on above: Generalized anxiety disorder (Primary Dx) Start: 05-08-2021 End: 05-08-2021 Patient encounter procedure Freedom Cee MD Work Phone: Pain Management Comment on above: NO SHOW (Primary Dx) Start: 05-05-2021 End: 05-05-2021 ambulatory Gloria Snell [facility] Work Phone: [facility] Comment on above: NO SHOW (Primary Dx) Start: 05-05-2021 End: 05-05-2021 Telemedicine consultation with patient Gloria Snell [facility] Work Phone: [facility] Start: 01-08-2021 End: 01-08-2021 Subsequent hospital visit by physician Mri [facility] (Lg Bore/1.5t) Radiology MRI Comment on above: Chronic right should er pain [M25.511, G89.29] Start: 12-27-2020 End: 12-27-2020 Subsequent hospital visit by physician Xr [facility] [place] Radiology Comment on above: Rheumatoid arthritis of multiple sites without rheumatoid factor (HCC) [M06.09] Start: 11-21-2020 End: 11-21-2020 Subsequent hospital visit by physician Xr [facility] Comment on above: Chronic neck pain [M 54.2, G89.29] Start: 03-05-2016 End: 03-06-2016 ambulatory JANE DIAZ Facility:[facility] Procedures Date Procedure Procedure Detail Performing Clinician Start: 05-03-2023 Gluc bld gluc mntr d ev cleared fda spec home use Davin Dowling MD Work Phone: Start: 05-03-2023 Esophagoscp rig stevens soral hypopharynx crv esoph Adilene Ordoñez [employer] Work Phone: Start: 04-23-2023 Radiologic exam swal low function contrast study Adilene Ordoñez [employer] Work Phone: Start: 04-15-2023 Ct abdomen & pelvis w/o contrast material Adilene Ordoñez [employer] Work Phone: Start: 11-30-2022 Gluc bld gluc mntr d ev cleared fda spec home use Bipin Nina AD TRA[employer] Work Phone: Start: 11-30-2022 Hemoglobin A1c/Hemoglobin.total in Blood Bipin Nina [employer] Work Phone: Start: 11-12-2022 Us soft tissue head & neck real time imge docm Lizzie Leavitt MD Work Phone: Start: 09-10-2022 Us pelvic nonobstetr ic real-time image complete Eleanor Kenny DO Work Phone: Start: 06-23-2022 Visual field xm uni/ bi w/interp intermed exam Chepe Shea [employer] Work Phone: Start: 06-11-2022 Cytp c/v auto [...] cervical 4 or 5 views Latanya Clifford APRN.[facility] Work Phone: Start: 11-08-2020 Adult depression scr eening assessment Gloria Snell [facility] Work Phone: Start: 10-13-2017 Colonoscopy Gloria Snell [facility] Work Phone: Start: 06-30-2017 Cystoscopy Theron Dorantes [employer] Comment on above: CYSTOSCOPY; LEFT RET ROGRADE; [...] Detail Author Start: 08-27-2030 Urine microalbumin profile [facility] Start: 06-12-2027 HPV TESTING HPV TESTING [facility] Start: 06-12-2027 PAP TESTING PAP TESTING [facility] Start: 06-12-2027 Screening for malign ant neoplasm of cervix [facility] Start: 12-23-2023 Hepatitis B screening Urine Al bumin:Creatinine Ratio [facility] Start: 12-23-2023 Hepatitis B surface antibody level LDL Cholesterol [facility] Start: 10-28-2023 Mammography Mammogram Screening [facility] Start: 10-28-2023 Screening for malign ant neoplasm of breast Mammogram Screening [facility] Start: 09-27-2023 Hemoglobin A1c measurement HbA1C [facility] Start: 06-24-2023 3 comp foot exam completed DIABETIC FOOT EXAM [facility] Start: 06-24-2023 Diabetic foot examination Diabetic Foot Exam [facility] Start: 06-12-2023 Glaucoma screening Dilated Retinal E xam [facility] Start: 06-12-2023 Hepatitis C antibody , confirmatory test DILATED RETINAL EXAM [facility] Start: 06-01-2023 Hemoglobin A1c measurement HbA1C [facility] Start: 06-01-2023 Hemoglobin A1c/Hemoglobin.total in Blood HbA1C [facility] Start: 03-25-2023 End: 06-24-2023 25-hydroxyvitamin D3 [Mass/volume] in Serum or Plasma VITAMIN D 25 HYDROXY Lab Routine Vitamin D insufficiency Expected: 03/25/2023, Expires: 06/24/2023 [facility] Work Phone: Comment on above: Expected: 03/25/2023 , Expires: 06/24/2023 Start: 03-25-2023 End: 06-21-2023 Thyrotropin [Units/volume] in Serum or Plasma TSH BLD Lab Routine 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 Expected: 03/25/2023, Expires: 06/21/2023 [facility] Work Phone: Comment on above: Expected: 03/25/2023 , Expires: 06/21/2023 Start: 02-08-2023 Depression Assessment Depression Ass essment [facility] Start: 02-07-2023 Plain chest X-ray XR chest 2V* [facility] Start: 12-31-2023 XR Chest 2 Views [facility] Start: 01-10-2023 HPV TESTING HPV TESTING [facility] Start: 01-10-2023 PAP TESTING PAP TESTING [facility] Start: 12-17-2022 Hemoglobin A1c/Hemoglobin.total in Blood HBA1C [facility] Start: 11-30-2022 End: 03-01-2023 ALBUMIN/CREAT RATIO RND UR ALBUMIN/CREAT RATIO RND UR Lab Routine Type 2 diabetes mellitus with hyperglycemia, without long-term current use of insulin (HCC) Expected: 11/30/2022, Expires: 03/01/2023 [facility] Work Phone: Comment on above: Expected: 11/30/2022 , Expires: 03/01/2023 Start: 11-30-2022 End: 03-01-2023 Lipid 1996 panel - Serum or Plasma LIPID PANEL BASIC Lab Routine Type 2 diabetes mellitus with hyperglycemia, without long-term current use of insulin (HCC) Expected: 11/30/2022, Expires: 03/01/2023 [facility] Work Phone: Comment on above: Expected: 11/30/2022 , Expires: 03/01/2023 Start: 11-13-2022 End: 01-13-2023 25-hydroxyvitamin D3 [Mass/volume] in Serum or Plasma VITAMIN D 25 HYDROXY Lab Routine History of gastric bypass Cognitive complaints Expected: 11/13/2022, Expires: 01/13/2023 [facility] Work Phone: Comment on above: Expected: 11/13/2022 , Expires: 01/13/2023 Start: 11-13-2022 End: 01-13-2023 Cobalamin (Vitamin B12) [Mass/volume] in Serum or Plasma VITAMIN B12 BLOOD Lab Routine History of gastric bypass Cognitive complaints Expected: 11/13/2022, Expires: 01/13/2023 [facility] Work Phone: Comment on above: Expected: 11/13/2022 , Expires: 01/13/2023 Start: 11-13-2022 End: 01-13-2023 Ferritin [Mass/volume] in Serum or Plasma FERRITIN BLD Lab Routine History of gastric bypass Cognitive complaints Expected: 11/13/2022, Expires: 01/13/2023 [facility] Work Phone: Comment on above: Expected: 11/13/2022 , Expires: 01/13/2023 Start: 11-13-2022 End: 01-13-2023 Pyridoxine [Mass/volume] in Serum or Plasma VITAMIN B6/PYRIDOXIN Lab Routine History of gastric bypass Cognitive complaints Expected: 11/13/2022, Expires: 01/13/2023 [facility] Work Phone: Comment on above: Expected: 11/13/2022 , Expires: 01/13/2023 Start: 11-13-2022 End: 01-13-2023 VITAMIN B1 (THIAMINE), WHOLE BLOOD VITAMIN B1 (THIAMINE), WHOLE BLOOD Lab Routine History of gastric bypass Cognitive complaints Expected: 11/13/2022, Expires: 01/13/2023 [facility] Work Phone: Comment on above: Expected: 11/13/2022 , Expires: 01/13/2023 Start: 10-17-2022 Adult depression screening assessment DEPRESSION SCREENING [facility] Start: 10-09-2022 Covid-19 Vaccine ( season) Covid-19 Vaccine () [facility] Start: 10-09-2022 Influenza vaccination C [facility] Start: 10-06-2022 End: 12-06-2022 Basic metabolic 2000 panel - Serum or Plasma BASIC METABOLIC PNL Lab Routine Pre-op examination Expected: 10/06/2022, Expires: 12/06/2022 [facility] Work Phone: Comment on above: Expected: 10/06/2022 , Expires: 12/06/2022 Start: 10-06-2022 End: 12-06-2022 CBC W Auto Differential panel - Blood CBC + DIFF Lab Routine Pre-op examination Expected: 10/06/2022, Expires: 12/06/2022 [facility] Work Phone: Comment on above: Expected: 10/06/2022 , Expires: 12/06/2022 Start: 10-06-2022 End: 12-06-2022 Natriuretic peptide.B prohormone N-Terminal [Mass/volume] in Serum or Plasma NT PRO BNP Lab Routine Pre-op examination Expected: 10/06/2022, Expires: 12/06/2022 [facility] Work Phone: Comment on above: Expected: 10/06/2022 , Expires: 12/06/2022 Start: 10-02-2022 End: 10-03-2023 PELVIC US I PELVIC US [facility] Anc Imaging Routine Ovarian cyst, left Expected: 10/02/2022, Expires: 10/03/2023 [facility] Work Phone: Comment on above: Expected: 10/02/2022 , Expires: 10/03/2023 Start: 09-30-2022 End: 11-30-2022 25-hydroxyvitamin D3 [Mass/volume] in Serum or Plasma VITAMIN D 25 HYDROXY Lab Routine Vitamin D insufficiency Expected: 09/30/2022, Expires: 11/30/2022 [facility] Work Phone: Comment on above: Expected: 09/30/2022 , Expires: 11/30/2022 Start: 09-30-2022 End: 11-30-2022 Cortisol [Mass/volume] in Serum or Plasma CORTISOL BLD Lab Routine Hypoglycemia Expected: 09/30/2022, Expires: 11/30/2022 [facility] Work Phone: Comment on above: Expected: 09/30/2022 , Expires: 11/30/2022 Start: 09-30-2022 End: 03-29-2023 Thyrotropin [Units/volume] in Serum or Plasma TSH BLD Lab Routine Hx of papillary thyroid carcinoma Expected: 09/30/2022, Expires: 03/29/2023 [facility] Work Phone: Comment on above: Expected: 09/30/2022 , Expires: 03/29/2023 Start: 09-30-2022 End: 09-30-2023 Us soft tissue head & neck real time imge docm US CERVICAL LYMPH NODE MAPPING Radiology Routine Hx of papillary thyroid carcinoma Expected: 09/30/2022, Expires: 09/30/2023 [facility] Work Phone: Comment on above: Expected: 09/30/2022 , Expires: 09/30/2023 Start: 09-17-2022 ANNUAL PCP TEAM GUARD ENTRANCE REGISTRAR MIKEY DISEASE VISIT ANNUAL PCP TEAM CHRONIC DISEASE VISIT [facility] Start: 09-10-2022 Adult depression screening assessment DEPRESSION SCREENING [facility] Start: 07-22-2022 Hemoglobin A1c/Hemoglobin.total in Blood HBA1C [facility] Start: 06-11-2022 End: 06-12-2023 PELVIC US WHI PELVIC US WHI Anc Imaging Routine Postmenopausal bleeding Expected: 06/11/2022, Expires: 06/12/2023 [facility] Work Phone: Comment on above: Expected: 06/11/2022 , Expires: 06/12/2023 Start: 02-08-2022 DEPRESSION ASSESSMENT DEPRESSION ASS ESSMENT [facility] Start: 01-08-2022 End: 03-10-2022 25-hydroxyvitamin D3 [Mass/volume] in Serum or Plasma VITAMIN D 25 HYDROXY Lab Routine Deficiency anemia Expected: 01/08/2022, Expires: 03/10/2022 [facility] Work Phone: Comment on above: Expected: 01/08/2022 , Expires: 03/10/2022 Start: 01-08-2022 End: 03-10-2022 Cobalamin (Vitamin B12) [Mass/volume] in Serum or Plasma VITAMIN B12 BLOOD Lab Routine Anemia, unspecified type Expected: 01/08/2022, Expires: 03/10/2022 [facility] Work Phone: Comment on above: Expected: 01/08/2022 , Expires: 03/10/2022 Start: 01-08-2022 End: 03-10-2022 Ferritin [Mass/volume] in Serum or Plasma FERRITIN BLD Lab Routine Deficiency anemia Expected: 01/08/2022, Expires: 03/10/2022 [facility] Work Phone: Comment on above: Expected: 01/08/2022 , Expires: 03/10/2022 Start: 01-08-2022 End: 03-10-2022 Iron and Iron binding capacity panel - Serum or Plasma IRON + TIBC Lab Routine Anemia, unspecified type Expected: 01/08/2022, Expires: 03/10/2022 [facility] Work Phone: Comment on above: Expected: 01/08/2022 , Expires: 03/10/2022 Start: 11-11-2021 Hepatitis C antibody , confirmatory test DILATED RETINAL EXAM [facility] Start: 11-08-2021 Adult depression screening assessment DEPRESSION SCREENING [facility] Start: 10-09-2021 Influenza vaccination C [facility] Start: 09-14-2021 Hemoglobin A1c/Hemoglobin.total in Blood HBA1C [facility] Start: 02-08-2021 DEPRESSION ASSESSMENT DEPRESSION ASS ESSMENT [facility] Start: 10-09-2020 Influenza vaccination INFLUENZA (#1) [facility] Start: 02-11-2019 Hepatitis B surface antibody level LDL CHOLESTEROL [facility] Start: 10-13-2018 Colonoscopy COLONOSCOPY [facility] Start: 10-13-2018 COLORECTAL CANCER SCREENING COLORECTAL CANCER SCREENING [facility] Start: 10-13-2018 Screening for malign ant neoplasm of colon [facility] Start: 2018 COLOGUARD (FIT-DNA) COLOGUARD (FIT-D NA) [facility] Start: [address] COLONOGRAPHY [facility] Start: 2018 FECAL OCCULT BLOOD FECAL OCCULT BLOO D [facility] Start: 2018 Screening for malign ant neoplasm of colon [facility] Start: 2018 SIGMOIDOSCOPY SIGMOIDOSCOPY [facility] Start: 12-09-2017 Hepatitis B screening URINE AL BUMIN:CREATININE RATIO [facility] Start: 2013 Mammography [facility] Start: 1992 HEPATITIS B (1 of 3 - Risk 3-dose series) HEPATITIS B (1 of 3 - Risk 3-dose series) [facility] Start: 1992 Hepatitis B Vaccine (1 of 3 - 19+ 3-dose series) Hepatitis B Vaccine (1 of 3 - 19+ 3-dose series) [facility] Start: 07-13-1991 ANNUAL PCP TEAM GUARD ENTRANCE REGISTRAR MIKEY DISEASE VISIT ANNUAL PCP TEAM CHRONIC DISEASE VISIT [facility] Start: 07-13-1991 HIV SCREENING HIV SCREENING [facility] Start: 07-13-1991 HIV screening HIV Screening [facility] Start: 1989 ONE PNEUMOVAX PRIOR TO AGE 65 ONE PNEUMOVAX PRIOR TO AGE 63 [facility] Start: 07-13-1983 3 comp foot exam completed DIABETIC FOOT EXAM [facility] Start: 07-13-1983 Hepatitis B screening Urine Al bumin:Creatinine Ratio [facility] Start: 07-13-1979 PNEUMOCOCCAL (1 - PCV) PNEUMOCOCCAL (1 - PCV) [facility] Start: 07-13-1979 Pneumococcal vaccination [facility] Start: 1978 COVID-19 VACCINE (#1) COVID-19 VACCI NE (#1) [facility] Start: 1978 COVID-19 VACCINE (1) COVID-19 VACCIN E (1) [facility] Start: 01-11-1974 COVID-19 VACCINE (#1) COVID-19 VACCI NE (#1) [facility] Start: 1973 HEPATITIS B (1 of 3 - 3-dose series) HEPATITIS B (1 of 3 - 3-dose series) [facility] Start: 1973 Hepatitis B Vaccine (1 of 3 - 3-dose series) Hepatitis B Vaccine (1 of 3 - 3-dose series) [facility] End: 05-13-2024 CT Abdomen and Pelvis W contrast IV CT ABD/PEL W IVCON Radiology Routine Nausea 1 Occurrences starting 04/14/2023 until 05/13/2024 [facility] Work Phone: Comment on above: 1 Occurrences starti ng 04/14/2023 until 05/13/2024 End: 05-14-2024 CT Abdomen WO contrast CT ABDOMEN WO IVCON Radiology Routine Nausea 1 Occurrences starting 04/15/2023 until 05/14/2024 [facility] Work Phone: Comment on above: 1 Occurrences starti ng 04/15/2023 until 05/14/2024 End: 05-14-2024 CT Pelvis WO contrast CT PELVIS WO IVCON Radiology Routine Abdominal pain, unspecified abdominal location 1 Occurrences starting 04/15/2023 until 05/14/2024 [facility] Work Phone: Comment on above: 1 Occurrences starti ng 04/15/2023 until 05/14/2024 End: 06-17-2023 ECG COMPLETE ECG COMPLETE ECG Routine Palpitations 1 Occurrences starting 06/16/2022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 [facility] 03-31-2023 Miscellaneous Notes Endocrinology & Metabolism Social Work Progress Note Provider Action / FYI toll test desk worker and Patient will meet via phone on 04/02/23 at 3PM to go over the draft narrative and prepare the statement to the licensure board. Esmetavares Morfin [id number] Type of Contact: telephone Endocrine BELT AND LINK ASSEMBLY SUPERVISOR Referral Reason: General Community Resources Contact Made?: YES- toll test desk worker confirmed patient's Name, , and Address, Note/Intervention: toll test desk worker talks with Compliance Office and will check in with them before submitting a report to the licensure board. toll test desk worker calls Patient to check in and discuss sent narrative. Patient reports she is on her way to the hospital to get bloodwork and thinks she might have another GI bleed. Patient states she is not feeling well. toll test desk worker provides supportive and empathetic listening to Patient. Patient reports the [facility] canceled her appointment without telling her. Patient [...] report to the licensure board is made. toll test desk worker and Patient agree to meet via phone on Wednesday, 04/02 at 3PM to go over the draft narrative and prepare the statement to the licensure board. [facility] referral placed: No Signature: MICHELA Good, BELT AND LINK ASSEMBLY SUPERVISOR Patient Name: Esme Morfin Date: 03/31/2023 Time: 2:51 PM Pager/Contact #: [phone] During this patient contact I spent approximately 30 minutes in reviewing the patient's chart and counseling regarding community resources and coordinating care. documented in this encounter [facility] 03-26-2023 Miscellaneous Notes Endocrinology & Metabolism Social Work Progress Note Provider Action / FYI toll test desk worker and Patient to co-create a report for submission [facility]. Esme Morfin [id number] Type of Contact: telephone Endocrine BELT AND LINK ASSEMBLY SUPERVISOR Referral Reason: Mental Health Resources Contact Made?: YES- toll test desk worker confirmed patient's Name, , and Address, Note/Intervention: toll test desk worker calls Patient to discuss being a mandated market news reporter to the [place] Counselor, Shipping Agent, and Marriage & Family Therapist Board for licensees acting unethically. Patient reports she has not heard from Tip Garrett and she looked at the resources director social sent, but has not thoroughly reviewed them. toll test desk worker and Patient discuss text messages sent via [email or web address] message from Patient. toll test desk worker advises Patient about director social being a mandated market news reporter to the [facility] Board for licensees acting unethically. toll test desk worker explains to Patient she will need to report Tip to the Board and asks Patient for her assistance co-creating the report. Patient agrees to help director social with the report and clarifies the following information: - toll test desk worker may include the texts from [email or web address] in the report to the Board. - [...] - Patient confirms she goes to the [facility] in [place]. Patient asks that director social not disclose her name in the report and director social agrees. toll test desk worker explains that director social's name will be on the report and that if the Board has any questions, they will reach out to director social and not Patient. toll test desk worker confirms she will not make the report until she confers with Patient. Patient indicates she did not get a copy of the police report [facility] told her about. toll test desk worker suggests that Patient file her own police report. toll test desk worker advises Patient not to respond to any messages from Tip and to call 911 and not answer the door if he comes to Patient's home. toll test desk worker explains she will send Patient a draft statement through [email or web address] for her review. toll test desk worker and Patient agree to stay in touch about the statement and next steps. toll test desk worker talks with Holly Sanchez from the Compliance Office who returns director social's voicemail from yesterday, 03/25/1023. toll test desk worker describes the situation to Holly and explains director social's mandated market news reporter obligations under [place] Administrative Code 4757-5-10. Holly agrees with director social's plan to work with Patient to co-create a report to submit to the licensure Board. Holly confirms director social does not have to wait to hear from [facility] to submit the report. Holly advises director social she will be in touch if more information is needed or director social needs to take additional steps. [facility] referral placed: No Signature: MICHELA Good LSW Patient Name: Esme Morfin Date: 03/26/2023 Time: 2:19 PM Pager/Contact #: [phone] During this patient contact I spent approximately 80 minutes in reviewing the patient's chart and counseling regarding community resources and coordinating care. documented in this encounter [facility] 03-26-2023 Hospital Discharge instructions Patient Education [...] numbers. This can be done either in [place] or metric measurements. Note that charts and online BMI calculators are available to help you find your BMI quickly and easily without having to do these calculations yourself. To calculate your BMI in [place] measurements: 1.Measure your weight in pounds [...] Centers for Disease Control and Prevention: www.cdc.gov [employer]: www.heart.org National Heart, Lung, and Blood Pearson: www.nhlbi.nih.gov Summary Body mass index (BMI) is a number that is calculated from a person's weight and height. BMI may help estimate how much of a person's weight is composed of fat. BMI can help identify those who may be at higher risk for certain medical problems. BMI can be measured using [place] measurements or metric measurements. BMI charts are used to identify whether you are underweight, normal weight, overweight, or obese. This information is not intended to replace advice given to you by your health care provider. Make sure you discuss any questions you have with your health care provider. Document Revised: 10/18/2019 Document Reviewed: 08/25/2019 [employer] Patient Education 2022 [employer]. 03/26/2023 10:54:15 Chest Wall Pain, Bmsl-vf-Ymud Chest Wall Pain Chest wall pain is [...] are safe for you. General instructions Take jzgf-ngu-gjtwiui and prescription medicines only as told by [...] provider. Document Revised: 04/29/2021 Document Reviewed: 04/11/2021 [employer] Patient Education 2022 [employer]. 03/26/2023 10:54:07 Acute Bronchitis, Adult, Sadc-tm-Jxrb Acute Bronchitis, Adult Acute bronchitis is when [...] condition. Follow these instructions at home: Take ywgy-rst-kppghfz and prescription medicines only as told by [...] cannot use soap and water, use hand save all operator. Avoid contact with people who have cold [...] it is easier to cough up. Take tjit-liv-blokijd and prescription medicines only as told by your doctor. Contact a doctor if your symptoms do not improve after 2 weeks of treatment. This information is not intended to replace advice given to you by your health care provider. Make sure you discuss any questions you have with your health care provider. Document Revised: 05/28/2021 Document Reviewed: 05/28/2021 [employer] Patient Education 2022 [employer]. Follow Up Care 03/26/2023 08:26:04 With:Farhat Pineda MD Address: [address] [place] [address]- When: Unknown [facility] 03-22-2023 Note HNO ID: [id number] Author: ADILENE ORDOÑEZ APRN.HOUSEK[facility]PER [facility] [employer] Service: ? Author Type: Nurse Practitioner Type: Progress Notes Filed: 03/23/2023 14:09 Note Text: VIRTUAL VISIT I had a virtual visit with Ms. Morfin today for dysphagia. I have communicated my name and active licensure. The patient's identity and physical location were verified at the time of this visit. Either the patient or their legal medical detail representative has been informed of the risks [...] (BAQSIMI) 3 mg/actuation nasal spray Use 1 [place] in (more content not included)... [facility] 03-22-2023 Instructions Adilene Ordoñez APRN.[facility]KEE[facility]ILD [facility] - 03/22/2023 2:40 PM EST 1) One treatment that may help relax the esophagus is actually peppermint extract and Altoids. This study demonstrates that 2 Altoids taken 10 minutes before meals can help swallowing - I would suggest trying this: https://www.ncbi.nlm.nih.gov/pub med/12057437 2) EGD dilation, flatbed company driver [phone] option 0 3) modified barium swallowing and esophagram [phone] 4) - Take MiraLAX (17 g, one [...] apples, peanut butter documented in this encounter [facility] 03-22-2023 History of Present illness Narrative VIRTUAL VISIT I had a virtual visit with Ms. Morfin today for dysphagia. I have communicated my name and active licensure. The patient's identity and physical location were verified at the time of this visit. Either the patient or their legal medical detail representative has been informed of the risks [...] regurgitation 09/08/2009 Aortic insufficiency EF 60% DR Zungia -- judged to be non-surgical and mild [...] (BAQSIMI) 3 mg/actuation nasal spray Use 1 [place] in the nose as needed for low [...] for constipation, last colonoscopy 2018 Adilene Ordoñez, AD TRAFFICKER.FRANK I HAVE offered the patient an outpatient appointment for further care at [facility]. I spent a total of 45 minutes on the date of the service which included preparing to see the patient, qjon-ba-nkmh patient care, completing clinical documentation, obtaining and/or reviewing separately obtained history, performing a medically appropriate examination, counseling and educating the patient/family/caregiver, ordering medications, tests, or procedures, communicating with other HCPs (not separately reported), independently interpreting results (not separately reported), communicating results to the patient/family/caregiver, and care coordination (not separately reported). Adilene Ordoñez APRN.FRANK documented in this encounter [facility] 02-05-2023 Note HNO ID: [id number] Author: Bipin Nina APRN.CNP Service: ? Author [...] (BAQSIMI) 3 mg/actuation nasal spray Use 1 [place] in the nose as needed for low [...] by mouth as needed. Gastric Acid Secretion Medical Information Officer - Proton Pump Inhibitors (PPIs) promethazine (PHENERGAN) 25 mg tablet Take 25 mg by mouth four times daily as needed. Antihistamine - 1st Generation - Phenothiazines rOPINIRole (REQUIP) 0.5 mg tablet Take 0.5 (more content not included)... [facility] 01-21-2023 History of Past i llness Narrative Problem Noted Date Diagnosed Date Resolved Date Malignant tumor of thyroid gland 01/21/2023 01/22/20 23 01/22/2023 Generalized anxiety disorder 01/09/2023 01/21/2023 01/22/2023 Palpitations 10/07/2022 10/23/2022 Obesity, Class I, BMI 30-34.9 01/10/2018 10/23/2022 Morbid obesity 11/24/2016 10/23/2022 Morbid obesity due to excess calories 08/31/2016 12/01/2016 Overview: Added automatically from request for surgery [id number] Hernia, paraesophageal 08/31/201612/01 Overview: Added automatically from request for surgery [id number] Mitral and aortic valve regurgitation 09/08/2009 10/23/2022 Overview: Aortic insufficiency EF 60% DR Zuniga -- judged to be non-surgical and mild documented as of this encounter (statuses as of 03/23/2023) [facility]12[facility]2023 History of Past illness Narrative* Problem Noted Date Diagnosed Date Resolved Date Malignant tumor of thyroid gland 01/21/2023 01/22/20 23 01/22/2023 Generalized anxiety disorder 01/09/2023 01/21/2023 01/22/2023 Palpitations 10/07/2022 10/23/2022 Obesity, Class I, BMI 30-34.9 01/10/2018 10/23/2022 Morbid obesity 11/24/2016 10/23/2022 Morbid obesity due to excess calories 08/31/2016 12/01/2016 Overview: Added automatically from request for surgery [id number] Hernia, paraesophageal 08/31/201612/01 Overview: Added automatically from request for surgery [id number] Mitral and aortic valve regurgitation 09/08/2009 10/23/2022 Overview: Aortic insufficiency EF 60% DR Zuniga -- judged to be non-surgical and mild documented as of this encounter (statuses as of 03/24/2023) [facility] History of Past illness Narrative* Problem Noted Date Diagnosed Date Resolved Date Malignant tumor of thyroid gland 01/21/2023 01/22/20 23 01/22/2023 Generalized anxiety disorder 01/09/2023 01/21/2023 01/22/2023 Palpitations 10/07/2022 10/23/2022 Obesity, Class I, BMI 30-34.9 01/10/2018 10/23/2022 Morbid obesity 11/24/2016 10/23/2022 Morbid obesity due to excess calories 08/31/2016 12/01/2016 Overview: Added automatically from request for surgery [id number] Hernia, paraesophageal 08/31/201612/01 Overview: Added automatically from request for surgery [id number] Mitral and aortic valve regurgitation 09/08/2009 10/23/2022 Overview: Aortic insufficiency EF 60% DR Zuniga -- judged to be non-surgical and mild documented as of this encounter (statuses as of 03/26/2023) [facility] History of Past illness Narrative* Problem Noted Date Diagnosed Date Resolved Date Malignant tumor of thyroid gland 01/21/2023 01/22/2001/22/2023 Generalized anxiety disorder 01/09/2023 01/21/2023 01/22/2023 Palpitations 10/07/2022 10/23/2022 Obesity, Class I, BMI 30-34.9 01/10/2018 10/23/2022 Morbid obesity 11/24/2016 10/23/2022 Morbid obesity due to excess calories 08/31/2016 12/01/2016 Overview: Added automatically from request for surgery [id number] Hernia, paraesophageal 08/31/201612/01 Overview: Added automatically from request for surgery [id number] Mitral and aortic valve regurgitation 09/08/2009 10/23/2022 Overview: Aortic insufficiency EF 60% DR Zuniga -- judged to be non-surgical and mild documented as of this encounter (statuses as of 03/31/2023) [facility] History of Past illness Narrative* Problem Noted Date Diagnosed Date Resolved Date Malignant tumor of thyroid gland 01/21/2023 01/22/2001/22/2023 Generalized anxiety disorder 01/09/2023 01/21/2023 01/22/2023 Palpitations 10/07/2022 10/23/2022 Obesity, Class I, BMI 30-34.9 01/10/2018 10/23/2022 Morbid obesity 11/24/2016 10/23/2022 Morbid obesity due to excess calories 08/31/2016 12/01/2016 Overview: Added automatically from request for surgery [id number] Hernia, paraesophageal 08/31/201612/01 Overview: Added automatically from request for surgery [id number] Mitral and aortic valve regurgitation 09/08/2009 10/23/2022 Overview: Aortic insufficiency EF 60% DR Zuniga -- judged to be non-surgical and mild documented as of this encounter (statuses as of 04/01/2023) [facility] History of Past illness Narrative* Problem Noted Date Diagnosed Date Resolved Date Malignant tumor of thyroid gland 01/21/2023 01/22/2001/22/2023 Generalized anxiety disorder 01/09/2023 01/21/2023 01/22/2023 Palpitations 10/07/2022 10/23/2022 Obesity, Class I, BMI 30-34.9 01/10/2018 10/23/2022 Morbid obesity 11/24/2016 10/23/2022 Morbid obesity due to excess calories 08/31/2016 12/01/2016 Overview: Added automatically from request for surgery [id number] Hernia, paraesophageal 08/31/201612/01 Overview: Added automatically from request for surgery [id number] Mitral and aortic valve regurgitation 09/08/2009 10/23/2022 Overview: Aortic insufficiency EF 60% DR Zuniga -- judged to be non-surgical and mild documented as of this encounter (statuses as of 04/01/2023) [facility] History of Past illness Narrative* Problem Noted Date Diagnosed Date Resolved Date Malignant tumor of thyroid gland 01/21/2023 01/22/2001/22/2023 Generalized anxiety disorder 01/09/2023 01/21/2023 01/22/2023 Palpitations 10/07/2022 10/23/2022 Obesity, Class I, BMI 30-34.9 01/10/2018 10/23/2022 Morbid obesity 11/24/2016 10/23/2022 Morbid obesity due to excess calories 08/31/2016 12/01/2016 Overview: Added automatically from request for surgery [id number] Hernia, paraesophageal 08/31/201612/01 Overview: Added automatically from request for surgery [id number] Mitral and aortic valve regurgitation 09/08/2009 10/23/2022 Overview: Aortic insufficiency EF 60% DR Zuniga -- judged to be non-surgical and mild documented as of this encounter (statuses as of 04/02/2023) [facility] History of Past illness Narrative* Problem Noted Date Diagnosed Date Resolved Date Malignant tumor of thyroid gland 01/21/2023 01/22/2001/22/2023 Generalized anxiety disorder 01/09/2023 01/21/2023 01/22/2023 Palpitations 10/07/2022 10/23/2022 Obesity, Class I, BMI 30-34.9 01/10/2018 10/23/2022 Morbid obesity 11/24/2016 10/23/2022 Morbid obesity due to excess calories 08/31/2016 12/01/2016 Overview: Added automatically from request for surgery [id number] Hernia, paraesophageal 08/31/201612/01 Overview: Added automatically from request for surgery [id number] Mitral and aortic valve regurgitation 09/08/2009 10/23/2022 Overview: Aortic insufficiency EF 60% DR Zuniga -- judged to be non-surgical and mild documented as of this encounter (statuses as of 04/02/2023) [facility] History of Past illness Narrative* Problem Noted Date Diagnosed Date Resolved Date Malignant tumor of thyroid gland 01/21/2023 01/22/2001/22/2023 Generalized anxiety disorder 01/09/2023 01/21/2023 01/22/2023 Palpitations 10/07/2022 10/23/2022 Obesity, Class I, BMI 30-34.9 01/10/2018 10/23/2022 Morbid obesity 11/24/2016 10/23/2022 Morbid obesity due to excess calories 08/31/2016 12/01/2016 Overview: Added automatically from request for surgery [id number] Hernia, paraesophageal 08/31/201612/01 Overview: Added automatically from request for surgery [id number] Mitral and aortic valve regurgitation 09/08/2009 10/23/2022 Overview: Aortic insufficiency EF 60% DR Zuniga -- judged to be non-surgical and mild documented as of this encounter (statuses as of 04/07/2023) [facility] History of Past illness Narrative* Problem Noted Date Diagnosed Date Resolved Date Malignant tumor of thyroid gland 01/21/2023 01/22/20 23 01/22/2023 Generalized anxiety disorder 01/09/2023 01/21/2023 01/22/2023 Palpitations 10/07/2022 10/23/2022 Obesity, Class I, BMI 30-34.9 01/10/2018 10/23/2022 Morbid obesity 11/24/2016 10/23/2022 Morbid obesity due to excess calories 08/31/2016 12/01/2016 Overview: Added automatically from request for surgery [id number] Hernia, paraesophageal 08/31/201612/01 Overview: Added automatically from request for surgery [id number] Mitral and aortic valve regurgitation 09/08/2009 10/23/2022 Overview: Aortic insufficiency EF 60% DR Zuniga -- judged to be non-surgical and mild documented as of this encounter (statuses as of 04/14/2023) [facility] History of Past illness Narrative* Problem Noted Date Diagnosed Date Resolved Date Malignant tumor of thyroid gland 01/21/2023 01/22/20 23 01/22/2023 Generalized anxiety disorder 01/09/2023 01/21/2023 01/22/2023 Palpitations 10/07/2022 10/23/2022 Obesity, Class I, BMI 30-34.9 01/10/2018 10/23/2022 Morbid obesity 11/24/2016 10/23/2022 Morbid obesity due to excess calories 08/31/2016 12/01/2016 Overview: Added automatically from request for surgery [id number] Hernia, paraesophageal 08/31/201612/01 Overview: Added automatically from request for surgery [id number] Mitral and aortic valve regurgitation 09/08/2009 10/23/2022 Overview: Aortic insufficiency EF 60% DR Zuniga -- judged to be non-surgical and mild documented as of this encounter (statuses as of 04/14/2023) [facility] History of Past illness Narrative* Problem Noted Date Diagnosed Date Resolved Date Malignant tumor of thyroid gland 01/21/2023 01/22/2001/22/2023 Generalized anxiety disorder 01/09/2023 01/21/2023 01/22/2023 Palpitations 10/07/2022 10/23/2022 Obesity, Class I, BMI 30-34.9 01/10/2018 10/23/2022 Morbid obesity 11/24/2016 10/23/2022 Morbid obesity due to excess calories 08/31/2016 12/01/2016 Overview: Added automatically from request for surgery [id number] Hernia, paraesophageal 08/31/201612/01 Overview: Added automatically from request for surgery [id number] Mitral and aortic valve regurgitation 09/08/2009 10/23/2022 Overview: Aortic insufficiency EF 60% DR Zuniga -- judged to be non-surgical and mild documented as of this encounter (statuses as of 04/15/2023) [facility] History of Past illness Narrative* Problem Noted Date Diagnosed Date Resolved Date Malignant tumor of thyroid gland 01/21/2023 01/22/20 23 01/22/2023 Generalized anxiety disorder 01/09/2023 01/21/2023 01/22/2023 Palpitations 10/07/2022 10/23/2022 Obesity, Class I, BMI 30-34.9 01/10/2018 10/23/2022 Morbid obesity 11/24/2016 10/23/2022 Morbid obesity due to excess calories 08/31/2016 12/01/2016 Overview: Added automatically from request for surgery [id number] Hernia, paraesophageal 08/31/201612/01 Overview: Added automatically from request for surgery [id number] Mitral and aortic valve regurgitation 09/08/2009 10/23/2022 Overview: Aortic insufficiency EF 60% DR Zuniga -- judged to be non-surgical and mild documented as of this encounter (statuses as of 04/15/2023) [facility] History of Past illness Narrative* Problem Noted Date Diagnosed Date Resolved Date Malignant tumor of thyroid gland 01/21/2023 01/22/2001/22/2023 Generalized anxiety disorder 01/09/2023 01/21/2023 01/22/2023 Palpitations 10/07/2022 10/23/2022 Obesity, Class I, BMI 30-34.9 01/10/2018 10/23/2022 Morbid obesity 11/24/2016 10/23/2022 Morbid obesity due to excess calories 08/31/2016 12/01/2016 Overview: Added automatically from request for surgery [id number] Hernia, paraesophageal 08/31/201612/01 Overview: Added automatically from request for surgery [id number] Mitral and aortic valve regurgitation 09/08/2009 10/23/2022 Overview: Aortic insufficiency EF 60% DR Zuniga -- judged to be non-surgical and mild documented as of this encounter (statuses as of 04/15/2023) [facility] History of Past illness Narrative* Problem Noted Date Diagnosed Date Resolved Date Malignant tumor of thyroid gland 01/21/2023 01/22/2001/22/2023 Generalized anxiety disorder 01/09/2023 01/21/2023 01/22/2023 Palpitations 10/07/2022 10/23/2022 Obesity, Class I, BMI 30-34.9 01/10/2018 10/23/2022 Morbid obesity 11/24/2016 10/23/2022 Morbid obesity due to excess calories 08/31/2016 12/01/2016 Overview: Added automatically from request for surgery [id number] Hernia, paraesophageal 08/31/201612/01 Overview: Added automatically from request for surgery [id number] Mitral and aortic valve regurgitation 09/08/2009 10/23/2022 Overview: Aortic insufficiency EF 60% DR Zuniga -- judged to be non-surgical and mild documented as of this encounter (statuses as of 04/15/2023) [facility] History of Past illness Narrative* Problem Noted Date Diagnosed Date Resolved Date Malignant tumor of thyroid gland 01/21/2023 01/22/2001/22/2023 Generalized anxiety disorder 01/09/2023 01/21/2023 01/22/2023 Palpitations 10/07/2022 10/23/2022 Obesity, Class I, BMI 30-34.9 01/10/2018 10/23/2022 Morbid obesity 11/24/2016 10/23/2022 Morbid obesity due to excess calories 08/31/2016 12/01/2016 Overview: Added automatically from request for surgery [id number] Hernia, paraesophageal 08/31/201612/01 Overview: Added automatically from request for surgery [id number] Mitral and aortic valve regurgitation 09/08/2009 10/23/2022 Overview: Aortic insufficiency EF 60% DR Zuniga -- judged to be non-surgical and mild documented as of this encounter (statuses as of 04/15/2023) [facility] History of Past illness Narrative* Problem Noted Date Diagnosed Date Resolved Date Malignant tumor of thyroid gland 01/21/2023 01/22/2001/22/2023 Generalized anxiety disorder 01/09/2023 01/21/2023 01/22/2023 Palpitations 10/07/2022 10/23/2022 Obesity, Class I, BMI 30-34.9 01/10/2018 10/23/2022 Morbid obesity 11/24/2016 10/23/2022 Morbid obesity due to excess calories 08/31/2016 12/01/2016 Overview: Added automatically from request for surgery [id number] Hernia, paraesophageal 08/31/201612/01 Overview: Added automatically from request for surgery [id number] Mitral and aortic valve regurgitation 09/08/2009 10/23/2022 Overview: Aortic insufficiency EF 60% DR Zuniga -- judged to be non-surgical and mild documented as of this encounter (statuses as of 04/16/2023) [facility] History of Past illness Narrative* Problem Noted Date Diagnosed Date Resolved Date Malignant tumor of thyroid gland 01/21/2023 01/22/2001/22/2023 Generalized anxiety disorder 01/09/2023 01/21/2023 01/22/2023 Palpitations 10/07/2022 10/23/2022 Obesity, Class I, BMI 30-34.9 01/10/2018 10/23/2022 Morbid obesity 11/24/2016 10/23/2022 Morbid obesity due to excess calories 08/31/2016 12/01/2016 Overview: Added automatically from request for surgery [id number] Hernia, paraesophageal 08/31/201612/01 Overview: Added automatically from request for surgery [id number] Mitral and aortic valve regurgitation 09/08/2009 10/23/2022 Overview: Aortic insufficiency EF 60% DR Zuniga -- judged to be non-surgical and mild documented as of this encounter (statuses as of 04/16/2023) [facility] History of Past illness Narrative* Problem Noted Date Diagnosed Date Resolved Date Malignant tumor of thyroid gland 01/21/2023 01/22/20 23 01/22/2023 Generalized anxiety disorder 01/09/2023 01/21/2023 01/22/2023 Palpitations 10/07/2022 10/23/2022 Obesity, Class I, BMI 30-34.9 01/10/2018 10/23/2022 Morbid obesity 11/24/2016 10/23/2022 Morbid obesity due to excess calories 08/31/2016 12/01/2016 Overview: Added automatically from request for surgery [id number] Hernia, paraesophageal 08/31/201612/01 Overview: Added automatically from request for surgery [id number] Mitral and aortic valve regurgitation 09/08/2009 10/23/2022 Overview: Aortic insufficiency EF 60% DR Zuniga -- judged to be non-surgical and mild documented as of this encounter (statuses as of 04/19/2023) [facility] History of Past illness Narrative* Problem Noted Date Diagnosed Date Resolved Date Malignant tumor of thyroid gland 01/21/2023 01/22/2001/22/2023 Generalized anxiety disorder 01/09/2023 01/21/2023 01/22/2023 Palpitations 10/07/2022 10/23/2022 Obesity, Class I, BMI 30-34.9 01/10/2018 10/23/2022 Morbid obesity 11/24/2016 10/23/2022 Morbid obesity due to excess calories 08/31/2016 12/01/2016 Overview: Added automatically from request for surgery [id number] Hernia, paraesophageal 08/31/201612/01 Overview: Added automatically from request for surgery [id number] Mitral and aortic valve regurgitation 09/08/2009 10/23/2022 Overview: Aortic insufficiency EF 60% DR Zuniga -- judged to be non-surgical and mild documented as of this encounter (statuses as of 04/21/2023) [facility] History of Past illness Narrative* Problem Noted Date Diagnosed Date Resolved Date Malignant tumor of thyroid gland 01/21/2023 01/22/2001/22/2023 Generalized anxiety disorder 01/09/2023 01/21/2023 01/22/2023 Palpitations 10/07/2022 10/23/2022 Obesity, Class I, BMI 30-34.9 01/10/2018 10/23/2022 Morbid obesity 11/24/2016 10/23/2022 Morbid obesity due to excess calories 08/31/2016 12/01/2016 Overview: Added automatically from request for surgery [id number] Hernia, paraesophageal 08/31/201612/01 Overview: Added automatically from request for surgery [id number] Mitral and aortic valve regurgitation 09/08/2009 10/23/2022 Overview: Aortic insufficiency EF 60% DR Zuniga -- judged to be non-surgical and mild documented as of this encounter (statuses as of 04/22/2023) [facility] History of Past illness Narrative* Problem Noted Date Diagnosed Date Resolved Date Malignant tumor of thyroid gland 01/21/2023 01/22/2001/22/2023 Generalized anxiety disorder 01/09/2023 01/21/2023 01/22/2023 Palpitations 10/07/2022 10/23/2022 Obesity, Class I, BMI 30-34.9 01/10/2018 10/23/2022 Morbid obesity 11/24/2016 10/23/2022 Morbid obesity due to excess calories 08/31/2016 12/01/2016 Overview: Added automatically from request for surgery [id number] Hernia, paraesophageal 08/31/201612/01 Overview: Added automatically from request for surgery [id number] Mitral and aortic valve regurgitation 09/08/2009 10/23/2022 Overview: Aortic insufficiency EF 60% DR Zuniga -- judged to be non-surgical and mild documented as of this encounter (statuses as of 04/23/2023) [facility] History of Past illness Narrative* Problem Noted Date Diagnosed Date Resolved Date Malignant tumor of thyroid gland 01/21/2023 01/22/2001/22/2023 Generalized anxiety disorder 01/09/2023 01/21/2023 01/22/2023 Palpitations 10/07/2022 10/23/2022 Obesity, Class I, BMI 30-34.9 01/10/2018 10/23/2022 Morbid obesity 11/24/2016 10/23/2022 Morbid obesity due to excess calories 08/31/2016 12/01/2016 Overview: Added automatically from request for surgery [id number] Hernia, paraesophageal 08/31/201612/01 Overview: Added automatically from request for surgery [id number] Mitral and aortic valve regurgitation 09/08/2009 10/23/2022 Overview: Aortic insufficiency EF 60% DR Zuniga -- judged to be non-surgical and mild documented as of this encounter (statuses as of 04/24/2023) [facility] History of Past illness Narrative* Problem Noted Date Diagnosed Date Resolved Date Malignant tumor of thyroid gland 01/21/2023 01/22/2001/22/2023 Generalized anxiety disorder 01/09/2023 01/21/2023 01/22/2023 Palpitations 10/07/2022 10/23/2022 Obesity, Class I, BMI 30-34.9 01/10/2018 10/23/2022 Morbid obesity 11/24/2016 10/23/2022 Morbid obesity due to excess calories 08/31/2016 12/01/2016 Overview: Added automatically from request for surgery [id number] Hernia, paraesophageal 08/31/201612/01 Overview: Added automatically from request for surgery [id number] Mitral and aortic valve regurgitation 09/08/2009 10/23/2022 Overview: Aortic insufficiency EF 60% DR Zuniga -- judged to be non-surgical and mild documented as of this encounter (statuses as of 04/26/2023) [facility]12-14-2023 History of Past illness Narrative* Problem Noted Date Diagnosed Date Resolved Date Malignant tumor of thyroid gland 01/21/2023 01/22/2001/22/2023 Generalized anxiety disorder 01/09/2023 01/21/2023 01/22/2023 Palpitations 10/07/2022 10/23/2022 Obesity, Class I, BMI 30-34.9 01/10/2018 10/23/2022 Morbid obesity 11/24/2016 10/23/2022 Morbid obesity due to excess calories 08/31/2016 12/01/2016 Overview: Added automatically from request for surgery [id number] Hernia, paraesophageal 08/31/201612/01 Overview: Added automatically from request for surgery [id number] Mitral and aortic valve regurgitation 09/08/2009 10/23/2022 Overview: Aortic insufficiency EF 60% DR Zuniga -- judged to be non-surgical and mild documented as of this encounter (statuses as of 04/27/2023) [facility]12[facility]14-[facility] History of Past illness Narrative* Problem Noted Date Diagnosed Date Resolved Date Malignant tumor of thyroid gland 01/21/2023 01/22/2001/22/2023 Generalized anxiety disorder 01/09/2023 01/21/2023 01/22/2023 Palpitations 10/07/2022 10/23/2022 Obesity, Class I, BMI 30-34.9 01/10/2018 10/23/2022 Morbid obesity 11/24/2016 10/23/2022 Morbid obesity due to excess calories 08/31/2016 12/01/2016 Overview: Added automatically from request for surgery [id number] Hernia, paraesophageal 08/31/201612/01 Overview: Added automatically from request for surgery [id number] Mitral and aortic valve regurgitation 09/08/2009 10/23/2022 Overview: Aortic insufficiency EF 60% DR Zuniga -- judged to be non-surgical and mild documented as of this encounter (statuses as of 04/30/2023) [facility] History of Past illness Narrative* Problem Noted Date Diagnosed Date Resolved Date Malignant tumor of thyroid gland 01/21/2023 01/22/20 23 01/22/2023 Generalized anxiety disorder 01/09/2023 01/21/2023 01/22/2023 Palpitations 10/07/2022 10/23/2022 Obesity, Class I, BMI 30-34.9 01/10/2018 10/23/2022 Morbid obesity 11/24/2016 10/23/2022 Morbid obesity due to excess calories 08/31/2016 12/01/2016 Overview: Added automatically from request for surgery [id number] Hernia, paraesophageal 08/31/201612/01 Overview: Added automatically from request for surgery [id number] Mitral and aortic valve regurgitation 09/08/2009 10/23/2022 Overview: Aortic insufficiency EF 60% DR Zuniga -- judged to be non-surgical and mild documented as of this encounter (statuses as of 05/04/2023) [facility]12-11-2023 Miscellaneous Notes* Telephone Encounter - Oma [...] 18, 2023 2:50 PM documented in this encounterTrihealth Bethes[facility]12-07-[facility]23 Hospital Discharge instructions Patient Education 01/14/2023 [...] Follow these instructions at home: Medicines Take uhgj-xhi-athljtr and prescription medicines only as told by [...] provider. Document Revised: 04/10/2021 Document Reviewed: 04/10/2021 [employer] Patient Education 2022 39 Health. Follow Up Care 01/14/2023 10:44:11 With:Farhat Pineda Address: [address] [place] [address] [address] [id number]- Business (1) When:01/17/2023 15:42:38 [facility]12-07-2023 Evaluation + Plan noteExtracted from: Title:ED Note [...] 01/14/23 11:11:00 EST ECG 12 Lead Adult [facility]12-06-2023 Miscellaneous Notes* Telephone Encounter - Mimi Gonzales LPN - 01/13/2023 10:31 AM EST Patient not here for [facility] appt today. Attempted to reach via phone call, no answer. Left message with [facility] scheduling number. Please assist with rescheduling. Mimi Gonzales LPN documented in this encounterTrihealth Bethes[facility]11-28-2023 NoteHNO ID: [id number] Author: Eleanor Kenny, DO Service: ? Author [...] TOTAL/COMPLETE 02-04-2010 ? patial/incomplete Review of Systems: PUBLIC INFORMATION RELATIONS MANAGER: SEE HPI The remainder of the review [...] directed sampling (ie, hystero (more content not included)...[facility] 01-05-2023 History of Present illness Narrative* OdilonEleanor [...] TOTAL/COMPLETE 02-04-2010 ? patial/incomplete Review of Systems: PUBLIC INFORMATION RELATIONS MANAGER: SEE HPI The remainder of the review [...] discussed in detail with patient, EMB at [facility] on Wednesday10/23/2022, informed consent signed, surg request completed and sent, PAT to be scheduled, RTO 2 weeks follow up. As to left 1.5 cm ovarian cyst (O-RADS 2), will repeat US 12 weeks, to call once results reviewed, if indicated will schedule follow up OV. 2.) mammogram still not scheduled, order in [facility] since 06/2022, will schedule at end of OV today. 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 01/05/2034 3:35 PM Eleanor Kenny DO documented in this encounterTrihealth Bethes[facility]11-22-2023 NoteHNO ID: [id number] Author: Madelin Sutton APRN.VOICE INTERCEPT TECHNICIAN Service: ? Author Type: Nurse Motorboat Operator Type: Anesthesia Procedure Notes Filed: 12/30/2022 7:53 AM Note Text: ANESTHESIOLOGY PROCEDURE NOTE Airway General Information Procedure Start Time/Medication Administration: 12/30/2022 7:43 AM Patient location during procedure: OR Patient identity confirmed: arm band, care steam table attendant and patient Staffing Anesthesiologist: Alvin Duque MD VOICE INTERCEPT TECHNICIAN: Madelin Sutton APRN.VOICE INTERCEPT TECHNICIAN Performed by: DANIELA Indications and Patient Condition Indications for airway management: anesthesia Preoxygenated: yes anesthesia circuit Patient position: sniffing Method: asleep Final Airway Details Final airway type: supraglottic airway Number of attempts at approach: 1 Final Supraglottic Airway: IGEL Size 4 Seal Adequate: yes Airway not difficult Comments Lips and teeth preanesthetic condition SIGNATURE: Madelin Sutton APRN.VOICE INTERCEPT TECHNICIAN PATIENT NAME: Esme Morfin DATE: December 30, 2022 TIME: 7:53 AM CSN: [id number] Instructions* Patient Instructions* Latanya Beltran APRN.HOUSEKEEPER CHILD CARE - 12/22/2022 2:30 PM EST PATIENT PREOPERATIVE INSTRUCTIONS Eleanor Kenny DO has scheduled you for your procedure at this surgery center: [facility]: [phone] --[id number] [address]. Please check in on the1st floor at [...] Procedures: - YOU MUST HAVE A RESPONSIBLE ASSOCIATE PROFESSOR OF GEOLOGY TAKE YOU HOME. A ELECTION JUDGE OR MANAGER OF QUALITY CANNOT BE MADE A RESPONSIBLE ASSOCIATE PROFESSOR OF GEOLOGY. - We recommend that a responsible person stays with you overnight to take care of you. - You cannot stay in a hotel alone after outpatient surgery. You will not be permitted to have yoursurgery, if you do not have someone to take care of you. If you already have an Advance Directive, please fax a copy to [phone] or email to for it to be [...] your chart that day. documented in this encounterTrihealth Bethes[facility]11-14-2023 History and physical note * Latanya Beltran APRN.CNP - 12/22/2022 2:19 PM EST Images from the original note were not included. Surgeon: Eleanor Kenny DO Type of surgery: ENDOMETRIAL BX W/ ENDOCERVICAL SAMPLING W/O CERVICAL DILATION Patient scheduled for surgery on 12/30/2022 Surgery Location: [place] Assessment/Plan TALIA (obstructive sleep apnea) Assessment: Patient [...] recent CPE completed on 11/30/2022 located in [facility] by Bipin Nina Encounter reviewed with patient. [...] (BAQSIMI) 3 mg/actuation nasal spray Use 1 [place] in the nose as needed for low blood sugar. May repeat after 15 minutes using a new device if there is no response. Blood-Glucose Sensor (FREESTYLE BNA 3 SENSOR) vinny Use to check glucose [...] 428 QTC Calculation (Bazett) 477 Calculated P [place] -13 Calculated R [place] -55 Calculated T [place] -15 Impression NORMAL SINUS RHYTHM LEFT ANTERIOR FASCICULAR BLOCK NONSPECIFIC T WAVE ABNORMALITY ABNORMAL ECG No Change from 06/16/2022 Confirmed by DARIEL LE MD ([id number]), film editor LACY NEW ([id number]) on 10/23/2022 3:56:35 PM Most recent EKG Recent Results (from the past 8760 hour(s)) ECG COMPLETE Collection Time: 06/16/22 3:32 PM Result Value Ventricular Rate 81 Atrial Rate 81 P-R Interval 118 QRS Duration 90 QT Interval 404 QTC Calculation (Bazett) 469 Calculated P [place] 3 Calculated R [place] -51 Calculated T [place] 70 Impression NORMAL SINUS RHYTHM LEFT ANTERIOR [...] with more than 50% of the total tzov-lx-yvzu time of the visit in counseling / [...] cardiovascular risk to proceed with intermediate risk PUBLIC INFORMATION RELATIONS MANAGER surgery as indicated. -BMI above goal-exercise goals are reviewed -She would benefit for evaluation/management of her under lying mood -Follow-up with her established cardiology clinic as previously directed. Thank you for allowing me to participate in the care of your patient. Please feel free to contact me with any questions or concerns. Sincerely- Dariel Le MD Staff Ambulance Officer CONSULTS: Patient does not require consults for [...] 12/22/2022 TIME: 12:56 PM documented in this encounterTrihealth Bethes[facility]11-13-2023 Miscellaneous Notes* Telephone Encounter - Oma [...] 21, 2022 1:24 PM documented in this encounterTrihealth Bethes[facility]10-25-2023 Miscellaneous Notes* Telephone Encounter - Alana Hurst RN - 12/02/2022 11:21 AM EDT Requested Prescriptions Pending Prescriptions Disp Refills pantoprazole DR (PROTONIX) 40 mg tablet Sig: Take 1 tablet by mouth as needed. Last visit: 09/24/17 EGD/col: 10/13/2017 Next Visit: nothing scheduled Alana Hurst RN documented in this encounterTrihealth Bethes[facility]10-25-2023 Miscellaneous Notes* Telephone Encounter - Rosa Martell - 12/02/2022 10:29 AM EDT Patient's request for medication is as follows: Requested Prescriptions Pending Prescriptions Disp Refills tretinoin (RETIN-A) 0.025 % topical cream 20 g 2 Sig: Apply to affected area daily at bedtime. Prescription(s) as above. Please process accordingly. Rosa [facility] [place] Marichuy Suarez MD filed [...] multiple treatments $450 per treatment at [place]; not great treatment Patient concerned about wrinkles [...] also mix 1:1 with Cetaphil daily facial toll operator To help spread Retin-A can put spots [...] 23, 2022 1:23 PM. documented in this encounterTrihealth Bethes[facility]10-25-2023 Miscellaneous Notes* Telephone Encounter - Cata Cerda RN - 12/02/2022 7:33 AM EDT Devtapt message sent documented in this encounterTrihealth Bethesda [facility] Hospital10-23-2023 NoteHNO ID: [id number] Author: Bipin Nina APRN.HOUSEKEEPER CHILD CARE Service: ? Author Type: Nurse Practitioner Type: [...] (BAQSIMI) 3 mg/actuation nasal spray Use 1 [place] in the nose as needed for low [...] by mouth as needed. Gastric Acid Secretion Medical Information Officer - Proton Pump Inhibitors (PPIs) promethazine (PHENERGAN) 25 mg tablet Take 25 mg by mouth four times daily as needed. Antihistamine - 1st Generation - Phenothiazines Syringe with Needle, Safety (EASY TOUCH SHEATHLOCK SYRG-NDL) 3 mL 25 gauge x 1 syrg Weekly methotrexate injections, monthly vit b12 injections as instructed Medical Supplies and DME - [place] and Syringes tretinoin (RETIN-A) 0.025 % topical cream Apply to affected area daily at bedtime. Acne Therapy Topical - Retinoids and Derivatives zaleplon (SONATA) 10 mg capsule Take 10 mg by mouth daily at bedtime. Pt takes 10mg qhs Sedative-Hypnotic - OLIVIER-Receptor Modulators PAST MEDICAL HISTORY Diagnosis Date Anemia Depressive disorder, not elsewhere classified Diabetes (HCC) Diarr (more content not included)...[facility]10-23-2023 Instructions* Patient Instructions* Bipin Nina APRN.HOUSEKEEPER CHILD CARE - 11/30/2022 11:58 AM EDT Regimen: Start [...] good option (avoid if farmed raised in [place]). - If eating canned fish, eat fish [...] least 1 or 2 times per week [place], trout, logan,water-packed tuna, mackerel (or fish oil supplement); flaxseed, spinach, walnuts Fried fish ( except when metzger fried in olive oil) Healthy oils for cooking, salad dressing, and other uses Extra-virgin olive oil, canola oil, flaxseed oil ( high-oleic sunflower or safflower oil may also be an option) [place]-6 oils, (corn, sunflower, safflower, soybean, peanut) Peas, beans, legumes, and nuts Soybeans, lentils, or any kind of peas, beans, or legumes; tree nuts(eg. Almonds,pecans, walnuts, [place] nuts) Heavily salted or honey-roasted nuts; stale [...] with partially hydrogenated oil documented in this encounterTrihealth Bethesda Butler Hospital10-23-2023 Nurse Note* Halie Bland MA - 11/30/2022 11:12 AM EDT Does not have meter. Stopped using NBA due to it waking her up at night. States that she is running high-- in the 300's -- states she wakes up above 100, and even 150's-- says she does get low 40-60 but more high. documented in this encounterTrihealth Bethes[facility]10-23-2023 History of Present illness Narrative* Bipin [...] (BAQSIMI) 3 mg/actuation nasal spray Use 1 [place] in the nose as needed for low [...] by mouth as needed. Gastric Acid Secretion Medical Information Officer - Proton Pump Inhibitors (PPIs) promethazine (PHENERGAN) 25 mg tablet Take 25 mg by mouth four times daily as needed. Antihistamine- 1st Generation - Phenothiazines Syringe with Needle, Safety (EASY TOUCH SHEATHLOCK SYRG-NDL) 3 mL 25 gauge x 1 syrg Weekly methotrexate injections, monthly vit b12 injections as instructed Medical Supplies and DME - [place] and Syringes tretinoin (RETIN-A) 0.025 % topical [...] drops with intake at times. A1c increasing. [place] hot and sweaty while in office and [...] slower gut transit. - rec apt w/ art history professor for meal planning - small frequent feedings [...] - small frequent meetings - schedule with art history professor for meal planning - CPAP for TALIA [...] which included preparing to see the patient, btwj-ak-qgtj patient care, completing clinical documentation, performing a medically appropriate examination, counseling and educating the patient/family/caregiver, and ordering medications, tests,or procedures. Bipin Nina APRN, NUCLEAR CHEMISTRY TECHNICIAN-C Department of Endocrinology [facility] documented in this encounterTrihealth Bethes[facility]10-19-2023 NoteHNO ID: [id number] Author: Thaddeus Diggs MD Service: ? Author Type: Physician Type: Progress Notes Filed: 11/27/2022 7:26 AM Note Text: Impression: This is Ms. Esme Morfin, a 47 year old female who presents to the [facility] Neurology [facility] for follow up. Recently [...] today. Thaddeus Diggs MD Staff, Neuromuscular Center [facility] Neurological [place] HPI: This is Ms. Esme Morfin, a 47 year old female who presents to the [facility]rology clinic for follow up. Recently seen in the setting of cognitive complaints (short-term memory loss, issues getting words to come out the right way). Also concerned about possible changes on MRI. Review: Initially seen 11/13/2022. This is Ms. Esme Morfin, a 47 year old female who presents to the [facility] Neurology clinic with cognitive complaints (short-term [...] finger flexion Thumb abduction 5 Approx 5? Engine Installer 5 Approx 5 Hip flexion Difficult 5? [...] and lower extremities. Rhomberg positive? Coordination: Intact zbampg-qf-lfvv-finger bilaterally. Does fairly well qxap-mm-cqwm bilaterally. Struggles a bit LLE (pain, feels heavy) This note was partially created using voice recognition software and is inherently subject to errors including those of syntax and sound-alike substitutions which may escape proofreading. In such instances, original meaning may be extrapolated by (more content not included)...[facility]10-19-2023 History of Present illness Narrative* Thaddeus Diggs MD - 11/26/2022 4:30 PM EDT Impression: This is Ms. Esme Morfin, a 47 year old female who [facility] the [facility] for follow up. Recently [...] today. Thaddeus Diggs MD Staff, Neuromuscular Center [facility] HPI: This is Ms. Esme Morfin, a 47 year old female who presents to the [facility] Neurology clinic for follow up. Recently seen in the setting of cognitive complaints (short-term memory loss, issues getting words to come out the right way). Also concerned about possible changes on MRI. Review: Initially seen 11/13/2022. This is Ms. Esme Morfin, a 47 year old female who presents to the [facility] Neurology clinic with cognitive complaints (short-term [...] finger flexion Thumb abduction 5 Approx 5? Engine Installer 5 Approx 5 Hip flexion Difficult 5? [...] and lower extremities. Rhomberg positive? Coordination: Intact wraloi-fh-avku-finger bilaterally. Does fairly well oksv-lh-aavk bilaterally. Struggles a bit LLE (pain, feels [...] chart, examining the patient. documented in this encounterTrihealth Bethesda [facility]10-17-2023 NoteHNO ID: [id number] Author: Dulce Serrano APRN.FRANK Service: ? Author Type: Nurse Practitioner Type: Progress Notes Filed: 11/24/2022 11:03 AM Note Text: [facility] Follow up/ Established [...] requiring occasional call hours. 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 Dr. Marlene Lazcano: [phone] Continue Sonata for medical treatment of insomnia. [...] 2-3 months to assess response to medications. [phone]. Reach out sooner if you have any questions or concerns. Dulce Serrano APRN.HOUSEKEEPER CHILD CARE I have communicated my name and active licensure. The patient's identity and physical location were verified at the time of this visit. Either the patient or their legal medical detail representative has been informed of the risks [...] in addition is also taking alprazolam and tldn-gsx-pgdiqsg sleep aids. He She did not schedule [...] HYGIENE QUESTIONS: Bedtime : (more content not included)...[place] [id number] History of Present illness Narrative* Dulce Serrano APRN.FRANK - 11/24/2022 8:00 AM EDT Images from the original note were not included. [facility] Follow up/ Established [...] requiring occasional call hours. 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 She is agreeable to start. PLAN: Sleep apnea - Continue BiPAP at 12/8 cmH2O. - Remember to clean your mask and equipment regularly, as directed. - You should be eligible for new supplies approximately every 3-6 months, depending on your insurance coverage. Contact your [employer] company for new supplies as needed. Insomnia Schedule follow up with behavior sleep medicine specialist for individual or group cognitive behavioral therapy for insomnia ( CBTi ). Dr. Marlene Lazcano: [phone] Continue Sonata for medical treatment of insomnia. [...] 2-3 months to assess response to medications. [phone]. Reach out sooner if you have any questions or concerns. Dulce Serrano APRN.HOUSEKEEPER CHILD CARE I have communicated my name and active licensure. The patient's identity and physical location wereverified at the time of this visit. Either the patient or their legal medical detail representative has been informed of the risks [...] in addition is also taking alprazolam and hhyd-fsh-rijpwvr sleep aids. He She did not schedule [...] or near accidents due to drowsy drivin [place] Sleepiness Scale 09/30/2021 10/17/2021 01/08/2022 Score Incomplete [...] (BAQSIMI) 3 mg/actuation nasal spray Use 1 [place] in the nose as needed for low [...] she cannot afford to purchase a mask jgj-zy-ssabhb. She does note that her sleeping has [...] of taking zaleplon, clonazepam in combination with kjsq-ydh-vcuauky ZzzQuil. She reports this is the only [...] care providers and other specialists Dulce Serrano APRN.HOUSEKEEPER CHILD CARE I spent a total of 35 minutes on the date of the service which included preparing to see the patient, whnn-fh-daer patient care, completing clinical documentation, obtaining and/or reviewing separately obtained history, and counseling and educating the patient/family/caregiver. documented in this encounterTrihealth Bethes[facility]10-06-2023 NoteHNO ID: [id number] Author: Thaddeus Diggs MD Service: ? Author Type: Physician Type: Progress Notes Filed: 11/13/2022 9:18 AM Note Text: Impression: This is Ms. Esme Morfin, a 47 year old female who presents to the [facility] clinic with cognitive complaints (short-term [...] 11/26/2022. Thaddeus Diggs MD Staff, Neuromuscular Center [facility] HPI: This is Ms. 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 Esme Morfin, a 47 year old female who presents to the [facility] Neurology clinic with cognitive complaints (short-term [...] 11/26/2022. Thaddeus Diggs MD Staff, Neuromuscular Center [facility] [place] HPI: This is Ms. 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 documented in this encounterTrihealth Bethesda Butler Hospital09-19-2023 NoteHNO ID: [id number] Author: Trixie Hunt RT(R) Service: ? Author [...] BY: RT Kristin(R) October 27, 2022 10:25 [facility]09-19-2023 Miscellaneous Notes* Letter - Coordinator, Mammography - 10/27/2022 11:12 AM EDT October 28, 2022 PID: [id number] Esme Morfin [address] [place] [address] Dear Ms. Morfin, We are pleased to [...] report will be kept on file at [facility] as part of your permanent medical record and are available for your continuing care. Thank you for allowing us to help in meeting your health care needs. Sincerely, Dr. Pagan Interpreting Radiologist [facility] (Normal over 40) documented in this encounterTrihealth Bethesda [facility]09-19-2023 History of Present illness Narrative* Trixie [...] 27, 2022 10:25 AM documented in this encounterTrihealth Bethesda Butler [facility] Miscellaneous Notes* Telephone Encounter - Alisha Peterson RN - 10/26/2022 3:48 PM EDT KRISTIN 07/16/22 NOV 11/30/22 RX pending for Trulicity 1.5 mg. Please review and advise. Thank you. documented in this encounterTri[facility] Miscellaneous Notes* Telephone Encounter - Anna oGld RN - 10/26/2022 3:06 PM EDT Please see message and advise. documented in this encounterTrihealth [facility]09-15-2023 NoteHNO ID: [id number] Author: Dariel Le MD Service: ? Author Type: Physician Type: Progress Notes Filed: 10/23/2022 5:06 PM Note Text: [facility] [place] Department of Cardiology [address] [place] [address] (office) [phone] (fax) 10/23/2022 This note was written using medical terminology and is intended to be used for medical purposes by other health insurance healthcare representative Patient presents with: New Patient Evaluation HPI: [...] the time. She is now scheduled at [place] for preop cardiovascular assessment prior to endometrial [...] (BAQSIMI) 3 mg/actuation nasal spray Use 1 [place] in the nose as needed for low blood sugar. May repeat after 15 minutes using a new device if there is no response. 2 Each 2 Blood-Glucose Sensor (ScreenleapSTYLE NBA 3 SENSOR) vinny Use to check [...] (PROTONIX) 40 mg tab (more content not included)...[facility]09-15-2023 Instructions* Patient Instructions* Dariel Le MD - 10/23/2022 3:33 PM EDT Aim for 15mins of walking/daily Continue current medications Consider discussing your mood with your PCP Consider reading The Whole Heart Solution by Raúl Salazar, The Spectrum by Saul Jesus or Whole Body Reset by Immanuel Dorado (for 50yo+). Watch the documentaries [place] and That Sugar Film to learn more about plant-based/low carbohydrate eating. documented in this encounterTrihealth [facility]09-15-2023 History of Present illness Narrative* Dariel Le MD - 10/23/2022 3:00 PM EDT Images from the original note were not included. [facility] Department of Cardiology [address] [place] [address] (office) [phone] (fax) 10/23/2022 This note was written using medical terminology and is intended to be used for medical purposes by other health insurance healthcare representative Patient presents with: New Patient Evaluation HPI: [...] the time. She is now scheduled at [place] for preop cardiovascular assessment prior to endometrial [...] (BAQSIMI) 3 mg/actuation nasal spray Use 1 [place] in the nose as needed for low [...] LAST VISIT WERE REVIEWED AND UPDATED IN [facility]. PATIENT: Name: MS. ESME MORFIN Age: 45 [...] Stress FBP LVEF % 81 12/29 Zio: Diamond Selector Patient Name: Esme Morfin : [id number] Findings Final Interpretation Patient had a min [...] cardiovascular risk to proceed with intermediate risk PUBLIC INFORMATION RELATIONS MANAGER surgery as indicated. -BMI above goal-exercise goals are reviewed -She would benefit for evaluation/management of her under lying mood -Follow-up with her established cardiology clinic as previously directed. Thank you for allowing me to participate in the care of your patient. Please feel free to contact me with any questions or concerns. Sincerely- Dariel Le MD Staff Ambulance Officer No orders of the defined types were placed in this encounter. documented in this encounterTrihealth [facility]09-15-2023 Miscellaneous Notes* Telephone Encounter - Ana [...] able to assist patient? documented in this encounterTrihealth [facility]08-31-2023 Miscellaneous Notes* Telephone Encounter - Luis F Barraza, MARITZA.FRANK - 10/08/2022 1:30 PM EDT monitor reviewed occasional PACs, PSVT--- no concerning dysrhythmias on monitor Luis F Barraza RN, MSN, NUCLEAR CHEMISTRY TECHNICIAN-C Adult Nurse Practitioner Rowan Verma Department of Cardiovascular Medicine [facility] Heart, Vascular, Thoracic [facility] * Telephone Encounter - Norm Hanna PA-C - 10/08/2022 10:46 AM EDT Images from the original note were not included. Event monitor results from PCP 06/2022 full report will be scanned into [employer]. Norm Hanna PA-C * Telephone Encounter - Luis F Barraza, MARITZA.FRANK - 10/07/2022 1:58 PM EDT patient had a monitor at an outside hospital --- I never got the results please find Hx of PVCs and was previously on metoprolol and may need again if she is still having palpitations BP and HR??? Luis F Barraza, RN, MSN, NUCLEAR CHEMISTRY TECHNICIAN-C Adult Nurse Practitioner Rowan Verma Department of Cardiovascular Medicine [facility] Heart, Vascular, Thoracic [facility] * Telephone Encounter - Eleanor Kenny DO - 10/06/2022 4:23 PM EDT Esme declines to proceed at [facility] I will need to find a date/time at [place] that can be schedule please complete your [...] PA-C [facility] documented in this encounterTrihealth [facility]08-30-2023 History of Past illness Narrative* Problem Noted Date Diagnosed Date Resolved Date Palpitations 10/07/2022 10/23/2022 Obesity, Class I, BMI 30-34.9 01/10/2018 10/23/2022 Morbid obesity 11/24/2016 10/23/2022 Morbid obesity due to excess calories 08/31/2016 12/01/2016 Overview: Added automatically from request for surgery [id number] Hernia, paraesophageal 08/31/201612/01 Overview: Added automatically from request for surgery [id number] Mitral and aortic valve regurgitation 09/08/2009 10/23/2022 Overview: Aortic insufficiency EF 60% DR Zuniga -- judged to be non-surgical and mild Obesity, unspecified 06/17/2006 023 documented as of this encounter (statuses as of 10/23/2022) [facility]08-[facility] History of Past illness Narrative* Problem Noted Date Diagnosed Date Resolved Date Palpitations 10/07/2022 10/23/2022 Obesity, Class I, BMI 30-34.9 01/10/2018 10/23/2022 Morbid obesity 11/24/2016 10/23/2022 Morbid obesity due to excess calories 08/31/2016 12/01/2016 Overview: Added automatically from request for surgery [id number] Hernia, paraesophageal 08/31/201612/01 Overview: Added automatically from request for surgery [id number] Mitral and aortic valve regurgitation 09/08/2009 10/23/2022 Overview: Aortic insufficiency EF 60% DR Zuniga -- judged to be non-surgical and mild Obesity, unspecified 06/17/2006 023 documented as of this encounter (statuses as of 10/24/2022) [facility] of Past illness Narrative* Problem Noted Date Diagnosed Date Resolved Date Palpitations 10/07/2022 10/23/2022 Obesity, Class I, BMI 30-34.9 01/10/2018 10/23/2022 Morbid obesity 11/24/2016 10/23/2022 Morbid obesity due to excess calories 08/31/2016 12/01/2016 Overview: Added automatically from request for surgery [id number] Hernia, paraesophageal 08/31/201612/01 Overview: Added automatically from request for surgery [id number] Mitral and aortic valve regurgitation 09/08/2009 10/23/2022 Overview: Aortic insufficiency EF 60% DR Zuniga -- judged to be non-surgical and mild Obesity, unspecified 06/17/2006 023 documented as of this encounter (statuses as of 10/27/2022) [facility] of Past illness Narrative* Problem Noted Date Diagnosed Date Resolved Date Palpitations 10/07/2022 10/23/2022 Obesity, Class I, BMI 30-34.9 01/10/2018 10/23/2022 Morbid obesity 11/24/2016 10/23/2022 Morbid obesity due to excess calories 08/31/2016 12/01/2016 Overview: Added automatically from request for surgery [id number] Hernia, paraesophageal 08/31/201612/01 Overview: Added automatically from request for surgery [id number] Mitral and aortic valve regurgitation 09/08/2009 10/23/2022 Overview: Aortic insufficiency EF 60% DR Zuniga -- judged to be non-surgical and mild Obesity, unspecified 06/17/2006 023 documented as of this encounter (statuses as of 10/28/2022) [facility] of Past illness Narrative* Problem Noted Date Diagnosed Date Resolved Date Palpitations 10/07/2022 10/23/2022 Obesity, Class I, BMI 30-34.9 01/10/2018 10/23/2022 Morbid obesity 11/24/2016 10/23/2022 Morbid obesity due to excess calories 08/31/2016 12/01/2016 Overview: Added automatically from request for surgery [id number] Hernia, paraesophageal 08/31/201612/01 Overview: Added automatically from request for surgery [id number] Mitral and aortic valve regurgitation 09/08/2009 10/23/2022 Overview: Aortic insufficiency EF 60% DR Zuniga -- judged to be non-surgical and mild Obesity, unspecified 06/17/2006 023 documented as of this encounter (statuses as of 10/29/2022) [facility] of Past illness Narrative* Problem Noted Date Diagnosed Date Resolved Date Palpitations 10/07/2022 10/23/2022 Obesity, Class I, BMI 30-34.9 01/10/2018 10/23/2022 Morbid obesity 11/24/2016 10/23/2022 Morbid obesity due to excess calories 08/31/2016 12/01/2016 Overview: Added automatically from request for surgery [id number] Hernia, paraesophageal 08/31/201612/01 Overview: Added automatically from request for surgery [id number] Mitral and aortic valve regurgitation 09/08/2009 10/23/2022 Overview: Aortic insufficiency EF 60% DR Zuniga -- judged to be non-surgical and mild Obesity, unspecified 06/17/2006 023 documented as of this encounter (statuses as of 10/29/2022) [facility] of [facility] illness Narrative* Problem Noted Date Diagnosed Date Resolved Date Palpitations 10/07/2022 10/23/2022 Obesity, Class I, BMI 30-34.9 01/10/2018 10/23/2022 Morbid obesity 11/24/2016 10/23/2022 Morbid obesity due to excess calories 08/31/2016 12/01/2016 Overview: Added automatically from request for surgery [id number] Hernia, paraesophageal 08/31/201612/01 Overview: Added automatically from request for surgery [id number] Mitral and aortic valve regurgitation 09/08/2009 10/23/2022 Overview: Aortic insufficiency EF 60% DR Zuniga -- judged to be non-surgical and mild Obesity, unspecified 06/17/2006 023 documented as of this encounter (statuses as of 10/30/2022) [facility] of [facility] illness Narrative* Problem Noted Date Diagnosed Date Resolved Date Palpitations 10/07/2022 10/23/2022 Obesity, Class I, BMI 30-34.9 01/10/2018 10/23/2022 Morbid obesity 11/24/2016 10/23/2022 Morbid obesity due to excess calories 08/31/2016 12/01/2016 Overview: Added automatically from request for surgery [id number] Hernia, paraesophageal 08/31/201612/01 Overview: Added automatically from request for surgery [id number] Mitral and aortic valve regurgitation 09/08/2009 10/23/2022 Overview: Aortic insufficiency EF 60% DR Zuniga -- judged to be non-surgical and mild Obesity, unspecified 06/17/2006 023 documented as of this encounter (statuses as of 11/14/2022) [facility] of [facility] illness Narrative* Problem Noted Date Diagnosed Date Resolved Date Palpitations 10/07/2022 10/23/2022 Obesity, Class I, BMI 30-34.9 01/10/2018 10/23/2022 Morbid obesity 11/24/2016 10/23/2022 Morbid obesity due to excess calories 08/31/2016 12/01/2016 Overview: Added automatically from request for surgery [id number] Hernia, paraesophageal 08/31/201612/01 Overview: Added automatically from request for surgery [id number] Mitral and aortic valve regurgitation 09/08/2009 10/23/2022 Overview: Aortic insufficiency EF 60% DR Zuniga -- judged to be non-surgical and mild Obesity, unspecified 06/17/2006 023 documented as of this encounter (statuses as of 11/17/2022) [facility] of [facility] illness Narrative* Problem Noted Date Diagnosed Date Resolved Date Palpitations 10/07/2022 10/23/2022 Obesity, Class I, BMI 30-34.9 01/10/2018 10/23/2022 Morbid obesity 11/24/2016 10/23/2022 Morbid obesity due to excess calories 08/31/2016 12/01/2016 Overview: Added automatically from request for surgery [id number] Hernia, paraesophageal 08/31/201612/01 Overview: Added automatically from request for surgery [id number] Mitral and aortic valve regurgitation 09/08/2009 10/23/2022 Overview: Aortic insufficiency EF 60% DR Zuniga -- judged to be non-surgical and mild Obesity, unspecified 06/17/2006 023 documented as of this encounter (statuses as of 11/24/2022) [facility] of [facility] illness Narrative* Problem Noted Date Diagnosed Date Resolved Date Palpitations 10/07/2022 10/23/2022 Obesity, Class I, BMI 30-34.9 01/10/2018 10/23/2022 Morbid obesity 11/24/2016 10/23/2022 Morbid obesity due to excess calories 08/31/2016 12/01/2016 Overview: Added automatically from request for surgery [id number] Hernia, paraesophageal 08/31/201612/01 Overview: Added automatically from request for surgery [id number] Mitral and aortic valve regurgitation 09/08/2009 10/23/2022 Overview: Aortic insufficiency EF 60% DR Zuniga -- judged to be non-surgical and mild Obesity, unspecified 06/17/2006 023 documented as of this encounter (statuses as of 11/27/2022) [facility] Narrative* Problem Noted Date Diagnosed Date Resolved Date Palpitations 10/07/2022 10/23/2022 Obesity, Class I, BMI 30-34.9 01/10/2018 10/23/2022 Morbid obesity 11/24/2016 10/23/2022 Morbid obesity due to excess calories 08/31/2016 12/01/2016 Overview: Added automatically from request for surgery [id number] Hernia, paraesophageal 08/31/201612/01 Overview: Added automatically from request for surgery [id number] Mitral and aortic valve regurgitation 09/08/2009 10/23/2022 Overview: Aortic insufficiency EF 60% DR Zuniga -- judged to be non-surgical and mild Obesity, unspecified 06/17/2006 023 documented as of this encounter (statuses as of 11/30/2022) [facility] of [facility] illness Narrative* Problem Noted Date Diagnosed Date Resolved Date Palpitations 10/07/2022 10/23/2022 Obesity, Class I, BMI 30-34.9 01/10/2018 10/23/2022 Morbid obesity 11/24/2016 10/23/2022 Morbid obesity due to excess calories 08/31/2016 12/01/2016 Overview: Added automatically from request for surgery [id number] Hernia, paraesophageal 08/31/201612/01 Overview: Added automatically from request for surgery [id number] Mitral and aortic valve regurgitation 09/08/2009 10/23/2022 Overview: Aortic insufficiency EF 60% DR Zuniga -- judged to be non-surgical and mild Obesity, unspecified 06/17/2006 023 documented as of this encounter (statuses as of 12/02/2022) [facility] of [facility] illness Narrative* Problem Noted Date Diagnosed Date Resolved Date Palpitations 10/07/2022 10/23/2022 Obesity, Class I, BMI 30-34.9 01/10/2018 10/23/2022 Morbid obesity 11/24/2016 10/23/2022 Morbid obesity due to excess calories 08/31/2016 12/01/2016 Overview: Added automatically from request for surgery [id number] Hernia, paraesophageal 08/31/201612/01 Overview: Added automatically from request for surgery [id number] Mitral and aortic valve regurgitation 09/08/2009 10/23/2022 Overview: Aortic insufficiency EF 60% DR Zuniga -- judged to be non-surgical and mild Obesity, unspecified 06/17/2006 023 documented as of this encounter (statuses as of 12/02/2022) [facility] Narrative* Problem Noted Date Diagnosed Date Resolved Date Palpitations 10/07/2022 10/23/2022 Obesity, Class I, BMI 30-34.9 01/10/2018 10/23/2022 Morbid obesity 11/24/2016 10/23/2022 Morbid obesity due to excess calories 08/31/2016 12/01/2016 Overview: Added automatically from request for surgery [id number] Hernia, paraesophageal 08/31/201612/01 Overview: Added automatically from request for surgery [id number] Mitral and aortic valve regurgitation 09/08/2009 10/23/2022 Overview: Aortic insufficiency EF 60% DR Zuniga -- judged to be non-surgical and mild Obesity, unspecified 06/17/2006 023 documented as of this encounter (statuses as of 12/02/2022) [facility] Narrative* Problem Noted Date Diagnosed Date Resolved Date Palpitations 10/07/2022 10/23/2022 Obesity, Class I, BMI 30-34.9 01/10/2018 10/23/2022 Morbid obesity 11/24/2016 10/23/2022 Morbid obesity due to excess calories 08/31/2016 12/01/2016 Overview: Added automatically from request for surgery [id number] Hernia, paraesophageal 08/31/201612/01 Overview: Added automatically from request for surgery [id number] Mitral and aortic valve regurgitation 09/08/2009 10/23/2022 Overview: Aortic insufficiency EF 60% DR Zuniga -- judged to be non-surgical and mild Obesity, unspecified 06/17/2006 023 documented as of this encounter (statuses as of 12/02/2022) [facility] of [facility] Narrative* Problem Noted Date Diagnosed Date Resolved Date Palpitations 10/07/2022 10/23/2022 Obesity, Class I, BMI 30-34.9 01/10/2018 10/23/2022 Morbid obesity 11/24/2016 10/23/2022 Morbid obesity due to excess calories 08/31/2016 12/01/2016 Overview: Added automatically from request for surgery [id number] Hernia, paraesophageal 08/31/201612/01 Overview: Added automatically from request for surgery [id number] Mitral and aortic valve regurgitation 09/08/2009 10/23/2022 Overview: Aortic insufficiency EF 60% DR Zuniga -- judged to be non-surgical and mild Obesity, unspecified 06/17/2006 023 documented as of this encounter (statuses as of 12/03/2022) [facility] Narrative* Problem Noted Date Diagnosed Date Resolved Date Palpitations 10/07/2022 10/23/2022 Obesity, Class I, BMI 30-34.9 01/10/2018 10/23/2022 Morbid obesity 11/24/2016 10/23/2022 Morbid obesity due to excess calories 08/31/2016 12/01/2016 Overview: Added automatically from request for surgery [id number] Hernia, paraesophageal 08/31/201612/01 Overview: Added automatically from request for surgery [id number] Mitral and aortic valve regurgitation 09/08/2009 10/23/2022 Overview: Aortic insufficiency EF 60% DR Zuniga -- judged to be non-surgical and mild Obesity, unspecified 06/17/2006 023 documented as of this encounter (statuses as of 12/13/2022) [facility] Narrative* Problem Noted Date Diagnosed Date Resolved Date Palpitations 10/07/2022 10/23/2022 Obesity, Class I, BMI 30-34.9 01/10/2018 10/23/2022 Morbid obesity 11/24/2016 10/23/2022 Morbid obesity due to excess calories 08/31/2016 12/01/2016 Overview: Added automatically from request for surgery [id number] Hernia, paraesophageal 08/31/201612/01 Overview: Added automatically from request for surgery [id number] Mitral and aortic valve regurgitation 09/08/2009 10/23/2022 Overview: Aortic insufficiency EF 60% DR Zuniga -- judged to be non-surgical and mild Obesity, unspecified 06/17/2006 023 documented as of this encounter (statuses as of 12/21/2022) [facility] Narrative* Problem Noted Date Diagnosed Date Resolved Date Palpitations 10/07/2022 10/23/2022 Obesity, Class I, BMI 30-34.9 01/10/2018 10/23/2022 Morbid obesity 11/24/2016 10/23/2022 Morbid obesity due to excess calories 08/31/2016 12/01/2016 Overview: Added automatically from request for surgery [id number] Hernia, paraesophageal 08/31/201612/01 Overview: Added automatically from request for surgery [id number] Mitral and aortic valve regurgitation 09/08/2009 10/23/2022 Overview: Aortic insufficiency EF 60% DR Zuniga -- judged to be non-surgical and mild documented as of this encounter (statuses as of 12/23/2022) [facility] Narrative* Problem Noted Date Diagnosed Date Resolved Date Palpitations 10/07/2022 10/23/2022 Obesity, Class I, BMI 30-34.9 01/10/2018 10/23/2022 Morbid obesity 11/24/2016 10/23/2022 Morbid obesity due to excess calories 08/31/2016 12/01/2016 Overview: Added automatically from request for surgery [id number] Hernia, paraesophageal 08/31/201612/01 Overview: Added automatically from request for surgery [id number] Mitral and aortic valve regurgitation 09/08/2009 10/23/2022 Overview: Aortic insufficiency EF 60% DR Zuniga -- judged to be non-surgical and mild documented as of this encounter (statuses as of 12/23/2022) [facility] Narrative* Problem Noted Date Diagnosed Date Resolved Date Palpitations 10/07/2022 10/23/2022 Obesity, Class I, BMI 30-34.9 01/10/2018 10/23/2022 Morbid obesity 11/24/2016 10/23/2022 Morbid obesity due to excess calories 08/31/2016 12/01/2016 Overview: Added automatically from request for surgery [id number] Hernia, paraesophageal 08/31/201612/01 Overview: Added automatically from request for surgery [id number] Mitral and aortic valve regurgitation 09/08/2009 10/23/2022 Overview: Aortic insufficiency EF 60% DR Zuniga -- judged to be non-surgical and mild documented as of this encounter (statuses as of 12/29/2022) [facility] Narrative* Problem Noted Date Diagnosed Date Resolved Date Palpitations 10/07/2022 10/23/2022 Obesity, Class I, BMI 30-34.9 01/10/2018 10/23/2022 Morbid obesity 11/24/2016 10/23/2022 Morbid obesity due to excess calories 08/31/2016 12/01/2016 Overview: Added automatically from request for surgery [id number] Hernia, paraesophageal 08/31/201612/01 Overview: Added automatically from request for surgery [id number] Mitral and aortic valve regurgitation 09/08/2009 10/23/2022 Overview: Aortic insufficiency EF 60% DR Zuniga -- judged to be non-surgical and mild documented as of this encounter (statuses as of 01/12/2023) [facility] Narrative* Problem Noted Date Diagnosed Date Resolved Date Palpitations 10/07/2022 10/23/2022 Obesity, Class I, BMI 30-34.9 01/10/2018 10/23/2022 Morbid obesity 11/24/2016 10/23/2022 Morbid obesity due to excess calories 08/31/2016 12/01/2016 Overview: Added automatically from request for surgery [id number] Hernia, paraesophageal 08/31/201612/01 Overview: Added automatically from request for surgery [id number] Mitral and aortic valve regurgitation 09/08/2009 10/23/2022 Overview: Aortic insufficiency EF 60% DR Zuniga -- judged to be non-surgical and mild documented as of this encounter (statuses as of 01/13/2023) [facility] Narrative* Problem Noted Date Diagnosed Date Resolved Date Palpitations 10/07/2022 10/23/2022 Obesity, Class I, BMI 30-34.9 01/10/2018 10/23/2022 Morbid obesity 11/24/2016 10/23/2022 Morbid obesity due to excess calories 08/31/2016 12/01/2016 Overview: Added automatically from request for surgery [id number] Hernia, paraesophageal 08/31/201612/01 Overview: Added automatically from request for surgery [id number] Mitral and aortic valve regurgitation 09/08/2009 10/23/2022 Overview: Aortic insufficiency EF 60% DR Zuniga -- judged to be non-surgical and mild documented as of this encounter (statuses as of 01/19/2023) [facility] History and physical note* Norm Hanna [...] three times daily. Taking Yes Blood-Glucose Sensor ([employer] NBA 3 SENSOR) vinny Use to check [...] (BAQSIMI) 3 mg/actuation nasal spray Use 1 [place] in the nose as needed for low [...] fevers. Neuro: No history of TIA's, stroke, TIMBER ESTIMATOR tumor, impaired sensorium, hemiplegia, paraplegia or quadraplegia. No neurological symptoms or problems. Respiratory: TALIA Negative for Asthma, Bronchitis, COPD, Pneumonia within 6 weeks (date), URI < 2weeks Negative for cough, wheezing or shortness of breath. Negative for hemoptysis. Cardiovascular: palpitations/PVC evaluated by Luis F Barraza, AD TRAFFICKER.HOUSEKEEPER CHILD CARE improved with TALIA treatment however worsened since 06/2022 Negative for Recent SC, CAD, CHF Negative for chest pain, orthopnea,PND, dizziness, lightheadedness or syncope. Negative for heart murmur. Negative for h/o DVT/PE. Negative for LE edema. GI: s/p gastric bypass and hx of esophogeal stricture Negative for Abdominal pain, Difficulty swallowing, Liver disease, ETOH > 2 drinks / day : No history of dysuria, frequency or incontinence,, stones or chronic kidney disease PUBLIC INFORMATION RELATIONS MANAGER: See HPI : Denies, Patient's last menstrual [...] 404 QTC Calculation (Bazett) 469 Calculated P [place] 3 Calculated R [place] -51 Calculated T [place] 70 Impression NORMAL SINUS RHYTHM LEFT ANTERIOR [...] complication, without long-term current use of insulin ([facility]) Reports compliant with medication . Patient admits [...] reviewed and shows normal LVEF and mild ffgkss-krxqtu-jciajexqs valve regurgitation without evidence of significant structural [...] or worsen Luis F Barraza RN, MSN, NUCLEAR CHEMISTRY TECHNICIAN-C METS: Take care of self; that is [...] - TSH, cortisol and Vit D. In [facility] 09/30/2022. I recommended to be completed wili [...] 10/06/2022 TIME: 2:07 PM documented in this encounterTrihealth Bethes[facility]08-28-2023 Instructions* Patient Instructions* Norm Hanna PA-C - 10/05/2022 3:11 PM EDT PATIENT PREOPERATIVE INSTRUCTIONS Eleanor Kenny DO has scheduled you for your procedure at this surgery center: [facility]: [phone] --[address] [place] [address]. [facility]: [phone] --[address] [address]. Please check in on the1st floor at [...] Procedures: - YOU MUST HAVE A RESPONSIBLE ASSOCIATE PROFESSOR OF GEOLOGY TAKE YOU HOME. A ELECTION JUDGE OR MANAGER OF QUALITY CANNOT BE MADE A RESPONSIBLE ASSOCIATE PROFESSOR OF GEOLOGY. - We recommend that a responsible person stays with you overnight to take care of you. - You cannot stay in a hotel alone after outpatient surgery. You will not be permitted to have yoursurgery, if you do not have someone to take care of you. If you already have an Advance Directive, please fax a copy to [phone] or email to for it to be [...] day. Norm Hanna PA-C documented in this encounterTrihealth Bethesda Butler Hospital08-25-2023 NoteHNO ID: [id number] Author: Eleanor Kenny, DO Service: ? Author [...] TOTAL/COMPLETE 02-04-2010 ? patial/incomplete Review of Systems: PUBLIC INFORMATION RELATIONS MANAGER: SEE HPI The remainder of the review [...] yield a false nega (more content not included)...[facility]08-25-[facility]23 History of Present illness Narrative* Eleanor Kenny, [...] TOTAL/COMPLETE 02-04-2010 ? patial/incomplete Review of Systems: PUBLIC INFORMATION RELATIONS MANAGER: SEE HPI The remainder of the review [...] discussed in detail with patient, EMB at [facility] on Wednesday10/23/2022, informed consent signed, surg request completed and sent, PAT to be scheduled, RTO 2 weeks follow up. As to left 1.5 cm ovarian cyst (O-RADS 2), will repeat US 12 weeks, to call once results reviewed, if indicated will schedule follow up OV. 2.) mammogram still not scheduled, order in [facility] since 06/2022, will schedule at end of OV today. 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 October 02, 2022 2:34 PM Eleanor Kenny DO documented in this encounterTrihealth Bethesda Butler Hospital08-23-2023 NoteHNO ID: [id number] Author: Lizzie Leavitt MD Service: ? Author Type: Physician Type: Progress Notes Filed: 09/30/2022 12:39 PM Note Text: I have communicated my name and active licensure. The patient's identity and physical location were verified at the time of this visit. Either the patient or their legal medical detail representative has been informed of the risks [...] 3.5 OSH Labs: 06/08 (more content not included)...[facility]08-23-[facility] History of Present illness Narrative* Lizzie Leavitt MD - 09/30/2022 11:06 AM EDT I have communicated my name and active licensure. The patient's identity and physical location wereverified at the time of this visit. Either the patient or their legal medical detail representative has been informed of the risks [...] 1 year with me, 3 months with NUCLEAR CHEMISTRY TECHNICIAN for DM/obesity The assessment and benefits/risks of the plan were discussed with the patient who expressed understanding and was agreeable to that which is noted above. All documentation from previous visit was copied and pasted, documentation has been reviewed and edited as necessary for today's visit. documented in this encounterTrihealth Bethesda Butler Hospital08-22-2023 NoteHNO ID: [id number] Author: Eleanor Kenny, DO Service: ? Author Type: Physician Type: Progress Notes Filed: 09/29/2022 4:43 PM Note Text: patient NO SHOWED VV after requesting VV and not desiring an OV to address US results/management. 09/29/2022 4:42 PM Eleanor Kenny, [facility] History of Present illness Narrative* Eleanor Kenny DO - 09/29/2022 4:41 PM EDT patient NO SHOWED VV after requesting VV and not desiring an OV to address US results/management. 09/29/2022 4:42 PM Eleanor Kenny DO documented in this encounterTrihealth Bethesda [facility] Hospital08-21-2023 NoteHNO ID: [id number] Author: Dimitrios Adair Service: ? Author Type: ? Type: Progress Notes Filed: 09/29/2022 12:46 PM Note Text: CMN RECEIVED BY [facility] VIA FAX, COMPLETED, AND PLACED IN PROVIDER MAILBOX FOR SIGNATURE Dimitrios Adair, Administration Assistance 09/28/22 DME COMPANY SENDING CMN: MSC SIGNED AND DATED CMN, FAXED TO DME AND CONFIRMATION PAGE RECEIVED: 09/29/22 [facility]08-21-2023 History of Present illness Narrative* Dimitrios Adair - 09/28/2022 1:44 PM EDT CMN RECEIVED BY [facility] VIA FAX, COMPLETED, AND PLACED IN PROVIDER MAILBOX FOR SIGNATURE Dimitrios Adair, Administration Assistance 09/28/22 DME COMPANY SENDING CMN: MSC SIGNED AND DATED CMN, FAXED TO DME & CONFIRMATION PAGE RECEIVED: 09/29/22 documented in this encounterTrihealth Bethesda Butler Hospital08-09-2023 Miscellaneous Notes* Telephone Encounter - Bella Douglass - 09/16/2022 1:55 PM EDT Attempted to reach patient by phone to reschedule follow up visit from US per provider request. Voicemail is full and unable to leave a message. My Chart message was sent requesting patient to call for new appt. documented in this encounterTrihealth Bethesda Butler Hospital08-04-2023 NoteHNO ID: [id number] Author: Janene Harrison MD Service: ? Author Type: Physician Type: Progress Notes Filed: 09/11/2022 1:56 PM Note Text: The patient presents for requested ultrasound. Full report available in the Imaging tab in [employer]. [facility]ON[facility]08-04-2023 History of Present illness Narrative* Janene Harrison MD - 09/11/2022 1:55 PM EDT The patient presents for requested ultrasound. Full report available in the Imaging tab in Epic. Janene Harrison MD documented in this encounterTrihealth Bethesda [facility] Hospital07-31-2023 Miscellaneous Notes* Telephone Encounter - Eleanor [...] evaluation/management per Dr. Carmichael. documented in this encounterTrihealth Bethesda Butler Hospital06-12-2023 NoteHNO ID: [id number] Author: Eleanor Kenny DO Service: ? Author Type: Physician Type: Progress Notes Filed: 07/20/2022 9:25 AM Note Text: patient called, has not scheduled/completed pelvic US ordered in 06/2022 reports has a lot going on, will call to schedule when desiring to proceed.[facility]06-08-2023 NoteHNO ID: [id number] Author: Bud Ca APRN.CNP Service: ? Author [...] visit. Either the patient or their legal medical detail representative has been informed of the risks [...] Apply 4 g to (more content not included)...[facility]06-05-2023 Miscellaneous Notes* Telephone Encounter - Cata Cerda RN - 07/13/2022 1:45 PM EDT Shout TVhart message sent documented in this encounterTrihealth Bethesda Butler Hospital05-31-2023 Miscellaneous Notes* Telephone Encounter - Bipin Nina APRN.CNP - 07/08/2022 5:01 PM EDT Images from the original note were not included. Bipin Nina APRN.HOUSEKEEPER CHILD CARE documented in this encounterTrihealth Bethesda Butler Hospital05-28-2023 Miscellaneous Notes* Telephone Encounter - Dannie Callaway V, MD - 07/05/2022 10:44 AM EDT Paged by strand forming machine operator Patient having diarrhea and low BG [...] dehydration Dannie Callaway MD documented in this encounterTrihealth Bethesda [facility] Hospital05-28-2023 Miscellaneous Notes* Telephone Encounter - Kathleen Cho RN - 07/05/2022 10:16 AM EDT Reason for Call: Patient calling regarding variable blood sugars and new onset of diarrhea. Conferenced to [facility] [place] strand forming machine operator, , to speak with provider nuclear operations specialist for Bipin Nina CNP for endocrinology nuclear operations specialist. Seek emergency care, if necessary. documented in this encounterTrihealth Bethesda Butler Hospital05-23-2023 NoteHNO ID: [id number] Author: Cass Banks RD Service: ? Author Type: Registered Dietitian Type: Progress Notes Filed: 07/01/2022 9:07 AM Note Text: [facility] I have communicated my name and active licensure. The patient's identity and physical location were verified at the time of this visit. Either the patient or their legal medical detail representative has been informed of the risks [...] subcutaneously one time a week. Blood-Glucose Sensor (ScreenleapSTYLE NBA 3 SENSOR) vinny Use to check [...] (mmol/L) Date Value 06/17/19 (more content not included)...[facility]05-23-2023 Miscellaneous Notes* Telephone Encounter - Bipin Nina [...] seven days of my reply. See the Devtapt message reply for my assessment and plan. [...] note were not included. documented in this encounterTrihealth Bethesda Butler Hospital05-16-2023 NoteHNO ID: [id number] Author: Marichuy Suarez MD Service: ? Author [...] also mix 1:1 with Cetaphil daily facial toll operator To help spread Retin-A can put spots [...] Marichuy Suarez MD, June 23, 2022 1:23 PM.[facility]05-16-2023 Instructions* Patient Instructions* Marichuy Suarez MD - [...] also mix 1:1 with Cetaphil daily facial toll operator To help spread Retin-A can put spots on face then blend (ie. 3 dots on forehead, 1 on each cheek, one on each lower face, one on nose, and one on chin). After allowing to dry, can use regular moisturizer F/u for Botox if desires documented in this encounterTrihealth Bethesda [facility] Hospital05-16-2023 History of Present illness Narrative* Marichuy [...] also mix 1:1 with Cetaphil daily facial toll operator To help spread Retin-A can put spots [...] 23, 2022 1:23 PM. documented in this encounterTrihealth Bethesda Butler Hospital05-16-2023 NoteHNO ID: [id number] Author: Bipin Nina APRN.FRANK Service: ? Author [...] by mouth as needed. Gastric Acid Secretion Medical Information Officer - Proton Pump Inhibitors (PPIs) promethazine (PHENERGAN) 25 mg tablet Take 25 mg by mouth four times daily as needed. Antihistamine - 1st Generation - Phenothiazines Syringe with Needle, Safety (EASY TOUCH SHEATHLOCK SYRG-NDL) 3 mL 25 gauge x 1 syrg Weekly methotrexate injections, monthly vit b12 injections as instructed Medical Supplies and DME - [place] and Syringes thiamine (VITAMIN B-1) 100 mg [...] PAST SURGICAL HISTORY Proc (more content not included)...[facility]05-16-2023 Miscellaneous Notes* Telephone Encounter - Brooke Hermosillo LPN - 06/23/2022 10:43 AM EDT Attempted to reach patient, Voicemail is full. Patient is currently at appointment with Endo NUCLEAR CHEMISTRY TECHNICIAN * Telephone Encounter - Elijah Degroot MA [...] 9:51 AM EDT Pt transferred to this freelance writer for triage Hx of bypass surgery [...] nurse triage. She can be reached at [phone]. Please advise. documented in this encounterTrihealth Bethesda Butler Hospital05-15-2023 Miscellaneous Notes* Telephone Encounter - Anna [...] Has had swelling in her legs, saw [facility] Cardiology on 06/16/22 Appointment scheduled with Bipin Nina CNP at 10:20am tomorrow. documented in this encounterTrihealth Bethesda [facility] Hospital05-09-2023 NoteHNO ID: [id number] Author: Luis F Barraza APRN.FRANK Service: ? Author Type: Nurse Practitioner Type: Progress Notes Filed: 06/18/2022 6:17 PM Note Text: [facility] OUTPATIENT VISIT DATE June 16, 2022 OUTPATIENT VISIT TYPE Established PRIMARY CARE PHYSICIAN: Farhat Pineda MD [address] [id number] CC: edema, palpitations Elements of this note, [...] which is at an outside hospital. A [employer]ella[employer] heart monitor was recently placed and the [...] reviewed and shows normal LVEF and mild mgonfa-akgavj-ohbmfenwd valve regurgitation without evidence of significant structural [...] or worsen Luis F Barraza, RN, MSN, NUCLEAR CHEMISTRY TECHNICIAN-C Adult Nurse Practitioner Rowan Verma Department of Cardiovascular Medicine [facility] Heart, Vascular, Thoracic [facility] PHYSICAL EXAMINATION: BP 135/77 Pulse 84 Wt 102.9 kg (226 lb 14.4 oz) LMP 04/06/2022 (Within Days) SpO2 99% BMI 42.87 kg/m? Physical Exam Constitutional: General: No acute distress. Appearance: Normal appearance. Eyes: General: No scleral icterus. Extraocular Movements: Extraocular movemen (more content not included)... [facility]05-09-2023 History of Present illness Narrative* Luis F Barraza APRN.HOUSEKEEPER CHILD CARE - 06/16/2022 3:48 PM EDT Images from the original note were not included. [facility] OUTPATIENT VISIT DATE June 16, 2022 OUTPATIENT VISIT TYPE Established PRIMARY CARE PHYSICIAN: Farhat Pineda MD [address] [place] [address] CC: edema, palpitations Elements of this note, [...] which is at an outside hospital. A StellaServiceice heart monitor was recently placed and the patient is currently wearing the monitor. Also, laboratory studies were recently ordered and are in process. Her weight had been quite stable for the past year and a half however she has gained 14 pounds in the past week according to [facility] weights in synopsis. She currently denies shortness [...] reviewed and shows normal LVEF and mild ummqzl-iihien-pkawbyaln valve regurgitation without evidence of significant structural [...] or worsen Luis F Barraza, RN, MSN, NUCLEAR CHEMISTRY TECHNICIAN-C Adult Nurse Practitioner Rowan Verma Department of Cardiovascular Medicine [facility] Heart, Vascular, Thoracic [facility] PHYSICAL EXAMINATION: BP 135/77 Pulse 84 Wt [...] b12 injections as instructed documented in this encounterTrihealth Bethesda [facility] Hospital05-04-2023 NoteHNO ID: [id number] Author: Opal Og, OD Service: ? Author Type: SHIRT MARKER Type: Progress Notes Filed: 06/11/2022 12:43 PM [...] Opal Og, OD June 11, 2022 12:41 [facility]05-04-2023 NoteHNO ID: [id number] Author: Eleanor Kenny, DO Service: ? Author [...] with fibroids / cysts / endo / PUBLIC INFORMATION RELATIONS MANAGER CA: No Problem with urinary or bowel [...] History Social History Narrative Not on file [employer] [id number] The above information has been reviewed and confirmed with the patient. History of present illness also confirmed Exam: BP 123/71 Pulse 81 Ht 5' 1 (1.549 m) Wt 212 lb (96.2 kg) LMP 04/06/2022 (Within Days) BMI 40.06 kg/m? Thyroid: normal, midline, no palpable masses Breasts: normal, symmetric, no nipple discharge Abdomen: normal, BS, soft, NT (more content not included)...[facility]05-04-2023 History of Present illness Narrative* Opal Og, [...] 11, 2022 12:41 PM documented in this encounterTrihealth Bethesda [facility]05-04-2023 History of Present illness Narrative* Eleanor [...] with fibroids / cysts / endo / PUBLIC INFORMATION RELATIONS MANAGER CA: No Problem with urinary or bowel [...] History Social History Narrative Not on file [employer]me[employer]te[employer] ([employer]) [id number] The above information has been reviewed and [...] which included preparing to see the patient, molc-fq-hyhc patient care, completingclinical documentation, obtaining and/or reviewing separately obtained history, performing a medically appropriate examination, counseling and educating the patient/family/caregiver, ordering medications, tests, or procedures, and care coordination (not separately reported). June 11, 2022 12:50 PM Eleanor Kenny DO documented in this encounterTrihealth Bethesda [facility] Hospital03-27-2023 Miscellaneous Notes* Telephone Encounter - Anil Basurto - 05/04/2022 11:47 AM EDT Images from the original note were not included. documented in this encounterTrihealth Bethesda [facility] Hospital02-21-2023 Miscellaneous Notes* Telephone Encounter - Keshawn Carpio RN - 03/31/2022 9:36 AM EST Shout TVhart message sent * Telephone Encounter - Dulce [...] past year PLAN: Thus, after reviewing the [facility] Electronic Medical Record and interviewing the patient [...] Our staff will continue to monitor the [place] Automated Rx Reporting System (OARRS) on a [...] IM periodically. She was on Vitamin D3 74264 international unit(s) two times a week as well. I would like for the patient to follow up with myself or one our department Advance Practice Nursesin approximately 60 days. It was a pleasure seeing you today in the [facility]. It is a privilege to assist you in your medical care. Please schedule a follow up appointment with me (or one of our Advance Practice Sleep Medicine Providers (back tufter) either in person at the [facility] [place] S Building or virtually. The appointment telephone number for the Sleep Disorder Center is [phone]. Note that [email or web address] may also be used to scheduleyour next appointment. Please follow up with all of your other medical specialists and primary care provider on a regular basis. If you have any further questions regarding the diagnosis or recommendations today, please do not hesitate to send us a [email or web address] message or call my collaborating nurse Stalin at [phone] Extension #[phone]. I spent a total time of over 60 minutes on the date of the service on this case. This included preparing to see the patient by reviewing the medical record prior to examining the patient, interviewing the patient face to face in the clinic or virtually via audio and video secure [facility] technology, ordering appropriate medications/tests/procedures, completing clinical documentation of the visit, counseling and educating the patient/family/caregiver, communicating with other health careproviders as well as general care coordination. Opal Aj DO, [facility], [facility] Clinical Staff, Sleep Medicine documented in this encounterTrihealth Bethesda Butler Hospital12-22-2022 History of Present illness Narrative* Dimitrios Adair - 01/29/2022 9:01 AM EST CMN RECEIVED BY [facility] VIA FAX, COMPLETED, AND PLACED IN PROVIDER MAILBOX FOR SIGNATURE Dimitrios Adair, Administration Assistance 01/29/22 [facility] SENDING CMN: Pharmacy Development SIGNED AND DATED CMN, FAXED TO DME & CONFIRMATION PAGE RECEIVED: 01/30/22 documented in this encounterTrihealth Bethesda [facility] Hospital12-15-2022 Miscellaneous Notes* Telephone Encounter - Luis F Arambula RN - 01/22/2022 11:04 AM EST Forwarded to provider to notify that labs are completed. * Telephone Encounter - Dimitrios Giovany - 01/22/2022 9:31 AM EST Received from lab results via fax. 2 pages indexed to chart. documented in this encounterTrihealth Bethesda Butler Hospital12-14-2022 History of Present illness Narrative* Terrell [...] osseous abnormality. No evidence of erosive arthropathy. Filling Carrier: SILVIA ... All images & studies were [...] and corrected by editing. documented in this encounterTrihealth Bethesda [facility] Hospital12-05-2022 Miscellaneous Notes* Telephone Encounter - Jessica Lynne - 01/12/2022 8:12 AM EST CMN RECEIVED BY [facility] VIA FAX, COMPLETED, AND PLACED IN PROVIDER MAILBOX FOR SIGNATURE Sridevi Lynne Plywood Stock Grader 01/12/22 [facility] SENDING CMN: [employer] SIGNED AND DATED CMN, FAXED TO DME & CONFIRMATION PAGE RECEIVED: 01/19/22 documented in this encounterTrihealth Bethesda [facility] Hospital12-01-2022 Nurse Note* Anil Basurto - 01/08/2022 [...] therapy (CPAP/BiPAP)? Yes [facility] [place] phone: [phone] Elva(services [place]) phone: [phone] Name of PAP machine. ResMed PAP download [...] from health apps (Sleep health apps - Aurigo [employer], Interwise, Telligent Systems, Bele[employer], etc.) can be uploaded to [email or web address] by attaching the image; and that the image would be available in scanned documents section of [employer]. Anil Basurto MOTORBOAT OPERATOR documented in this encounterTrihealth Bethesda [facility] Hospital12-01-2022 History of Present illness Narrative* Opal Aj, DO - 01/08/2022 8:06 AM EST Images from the original note were not included. [facility] New Patient Evaluation PATIENT NAME: Esme Morfin DATE OF SERVICE: January 08, 2022 CONSULTING PROVIDER: No referring provider defined for this encounter. Note: This medical visit was completed virtually via secure audio and video technology provided by the [facility]. Consent related to this virtual visit being carried out was provided via [email or web address] as well as verbally. My findings and [...] ago after covid infection. 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 The patient is currently using Bipap at 12-8 and is taking Sonata 10mg po q hs, MR 5mg po q hs; occasional Zyquil; as well as seeing Dr. Lazcano for CBT I a few times. She was last seen on 12-17-21 by MARITZA Leigh. She has reported adverse effects of confusional [...] Documentation Vitals: LMP 09/22/2020 (Within Days) Flowsheets: [facility] PDMP NARXCARE SCORES Encounter Info: Billing Info, [...] near accidents due to drowsy driving: - [place] Sleepiness Scale 09/17/2021 09/30/2021 10/17/2021 Score Incomplete [...] past year PLAN: Thus, after reviewing the [facility] Electronic Medical Record and interviewing the patient [...] Our staff will continue to monitor the [place] Automated Rx Reporting System (OARRS) on a [...] IM periodically. She was on Vitamin D3 14806 international unit(s) two times a week as well. I would like for the patient to follow up with myself or one our department Advance Practice Nursesin approximately 60 days. It was a pleasure seeing you today in the [facility]. It is a privilege to assist you in your medical care. Please schedule a follow up appointment with me (or one of our Advance Practice Sleep Medicine Providers (back tufter) either in person at the [facility] S Building or virtually. The appointment telephone number for the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 Narrative* Problem Noted Date Resolved Date Morbid obesity due to excess calories 08/31/2016 12/01/2016 Overview: Added automatically from request for surgery [id number] Hernia, paraesophageal 08/31/2016 7 Overview: Added automatically from request for surgery [id number] documented as of this encounter (statuses as of 12/18/2021) [facility] History of Past illness Narrative* Problem Noted Date Resolved Date Morbid obesity due to excess calories 08/31/2016 12/01/2016 Overview: Added automatically from request for surgery [id number] Hernia, paraesophageal 08/31/2016 7 Overview: Added automatically from request for surgery [id number] documented as of this encounter (statuses as of 12/29/2021) [facility] History of Past illness Narrative* Problem Noted Date Resolved Date Morbid obesity due to excess calories 08/31/2016 12/01/2016 Overview: Added automatically from request for surgery [id number] Hernia, paraesophageal 08/31/2016 7 Overview: Added automatically from request for surgery [id number] documented as of this encounter (statuses as of 01/08/2022) [facility] History of Past illness Narrative* Problem Noted Date Resolved Date Morbid obesity due to excess calories 08/31/2016 12/01/2016 Overview: Added automatically from request for surgery [id number] Hernia, paraesophageal 08/31/2016 7 Overview: Added automatically from request for surgery [id number] documented as of this encounter (statuses as of 01/21/2022) [facility] History of Past illness Narrative* Problem Noted Date Resolved Date Morbid obesity due to excess calories 08/31/2016 12/01/2016 Overview: Added automatically from request for surgery [id number] Hernia, paraesophageal 08/31/2016 7 Overview: Added automatically from request for surgery [id number] documented as of this encounter (statuses as of 01/22/2022) [facility] History of Past illness Narrative* Problem Noted Date Resolved Date Morbid obesity due to excess calories 08/31/2016 12/01/2016 Overview: Added automatically from request for surgery [id number] Hernia, paraesophageal 08/31/2016 7 Overview: Added automatically from request for surgery [id number] documented as of this encounter (statuses as of 01/31/2022) [facility] History of Past illness Narrative* Problem Noted Date Resolved Date Morbid obesity due to excess calories 08/31/2016 12/01/2016 Overview: Added automatically from request for surgery [id number] Hernia, paraesophageal 08/31/2016 7 Overview: Added automatically from request for surgery [id number] documented as of this encounter (statuses as of 01/31/2022) [facility] History of Past illness Narrative* Problem Noted Date Resolved Date Morbid obesity due to excess calories 08/31/2016 12/01/2016 Overview: Added automatically from request for surgery [id number] Hernia, paraesophageal 08/31/2016 7 Overview: Added automatically from request for surgery [id number] documented as of this encounter (statuses as of 03/31/2022) [facility] History of Past illness Narrative* Problem Noted Date Resolved Date Morbid obesity due to excess calories 08/31/2016 12/01/2016 Overview: Added automatically from request for surgery [id number] Hernia, paraesophageal 08/31/2016 7 Overview: Added automatically from request for surgery [id number] documented as of this encounter (statuses as of 05/04/2022) [facility] History of Past illness Narrative* Problem Noted Date Resolved Date Morbid obesity due to excess calories 08/31/2016 12/01/2016 Overview: Added automatically from request for surgery [id number] Hernia, paraesophageal 08/31/2016 7 Overview: Added automatically from request for surgery [id number] documented as of this encounter (statuses as of 06/11/2022) [facility] History of Past illness Narrative* Problem Noted Date Resolved Date Morbid obesity due to excess calories 08/31/2016 12/01/2016 Overview: Added automatically from request for surgery [id number] Hernia, paraesophageal 08/31/2016 7 Overview: Added automatically from request for surgery [id number] documented as of this encounter (statuses as of 06/19/2022) [facility] History of Past illness Narrative* Problem Noted Date Resolved Date Morbid obesity due to excess calories 08/31/2016 12/01/2016 Overview: Added automatically from request for surgery [id number] Hernia, paraesophageal 08/31/2016 7 Overview: Added automatically from request for surgery [id number] documented as of this encounter (statuses as of 06/22/2022) [facility] History of Past illness Narrative* Problem Noted Date Resolved Date Morbid obesity due to excess calories 08/31/2016 12/01/2016 Overview: Added automatically from request for surgery [id number] Hernia, paraesophageal 08/31/2016 7 Overview: Added automatically from request for surgery [id number] documented as of this encounter (statuses as of 06/23/2022) [facility] History of Past illness Narrative* Problem Noted Date Resolved Date Morbid obesity due to excess calories 08/31/2016 12/01/2016 Overview: Added automatically from request for surgery [id number] Hernia, paraesophageal 08/31/2016 7 Overview: Added automatically from request for surgery [id number] documented as of this encounter (statuses as of 06/23/2022) [facility] History of Past illness Narrative* Problem Noted Date Resolved Date Morbid obesity due to excess calories 08/31/2016 12/01/2016 Overview: Added automatically from request for surgery [id number] Hernia, paraesophageal 08/31/2016 7 Overview: Added automatically from request for surgery [id number] documented as of this encounter (statuses as of 06/23/2022) [facility] History of Past illness Narrative* Problem Noted Date Resolved Date Morbid obesity due to excess calories 08/31/2016 12/01/2016 Overview: Added automatically from request for surgery [id number] Hernia, paraesophageal 08/31/2016 7 Overview: Added automatically from request for surgery [id number] documented as of this encounter (statuses as of 06/30/2022) [facility] History of Past illness Narrative* Problem Noted Date Resolved Date Morbid obesity due to excess calories 08/31/2016 12/01/2016 Overview: Added automatically from request for surgery [id number] Hernia, paraesophageal 08/31/2016 7 Overview: Added automatically from request for surgery [id number] documented as of this encounter (statuses as of 07/05/2022) [facility] History of Past illness Narrative* Problem Noted Date Resolved Date Morbid obesity due to excess calories 08/31/2016 12/01/2016 Overview: Added automatically from request for surgery [id number] Hernia, paraesophageal 08/31/2016 7 Overview: Added automatically from request for surgery [id number] documented as of this encounter (statuses as of 07/07/2022) [facility] History of Past illness Narrative* Problem Noted Date Resolved Date Morbid obesity due to excess calories 08/31/2016 12/01/2016 Overview: Added automatically from request for surgery [id number] Hernia, paraesophageal 08/31/2016 7 Overview: Added automatically from request for surgery [id number] documented as of this encounter (statuses as of 07/09/2022) [facility] History of Past illness Narrative* Problem Noted Date Resolved Date Morbid obesity due to excess calories 08/31/2016 12/01/2016 Overview: Added automatically from request for surgery [id number] Hernia, paraesophageal 08/31/2016 7 Overview: Added automatically from request for surgery [id number] documented as of this encounter (statuses as of 07/14/2022) [facility] History of Past illness Narrative* Problem Noted Date Diagnosed Date Resolved Date Morbid obesity due to excess calories 08/31/2016 12/01/2016 Overview: Added automatically from request for surgery [id number] Hernia, paraesophageal 08/31/201612/01 Overview: Added automatically from request for surgery [id number] documented as of this encounter (statuses as of 09/08/2022) [facility] History of Past illness Narrative* Problem Noted Date Diagnosed Date Resolved Date Morbid obesity due to excess calories 08/31/2016 12/01/2016 Overview: Added automatically from request for surgery [id number] Hernia, paraesophageal 08/31/201612/01 Overview: Added automatically from request for surgery [id number] documented as of this encounter (statuses as of 09/11/2022) [facility] History of Past illness Narrative* Problem Noted Date Diagnosed Date Resolved Date Morbid obesity due to excess calories 08/31/2016 12/01/2016 Overview: Added automatically from request for surgery [id number] Hernia, paraesophageal 08/31/201612/01 Overview: Added automatically from request for surgery [id number] documented as of this encounter (statuses as of 09/16/2022) [facility] History of Past illness Narrative* Problem Noted Date Diagnosed Date Resolved Date Morbid obesity due to excess calories 08/31/2016 12/01/2016 Overview: Added automatically from request for surgery [id number] Hernia, paraesophageal 08/31/201612/01 Overview: Added automatically from request for surgery [id number] documented as of this encounter (statuses as of 09/18/2022) [facility] History of Past illness Narrative* Problem Noted Date Diagnosed Date Resolved Date Morbid obesity due to excess calories 08/31/2016 12/01/2016 Overview: Added automatically from request for surgery [id number] Hernia, paraesophageal 08/31/201612/01 Overview: Added automatically from request for surgery [id number] documented as of this encounter (statuses as of 09/29/2022) [facility] History of Past illness Narrative* Problem Noted Date Diagnosed Date Resolved Date Morbid obesity due to excess calories 08/31/2016 12/01/2016 Overview: Added automatically from request for surgery [id number] Hernia, paraesophageal 08/31/201612/01 Overview: Added automatically from request for surgery [id number] documented as of this encounter (statuses as of 09/30/2022) [facility] History of Past illness Narrative* Problem Noted Date Diagnosed Date Resolved Date Morbid obesity due to excess calories 08/31/2016 12/01/2016 Overview: Added automatically from request for surgery [id number] Hernia, paraesophageal 08/31/201612/01 Overview: Added automatically from request for surgery [id number] documented as of this encounter (statuses as of 09/30/2022) [facility] History of Past illness Narrative* Problem Noted Date Diagnosed Date Resolved Date Morbid obesity due to excess calories 08/31/2016 12/01/2016 Overview: Added automatically from request for surgery [id number] Hernia, paraesophageal 08/31/201612/01 Overview: Added automatically from request for surgery [id number] documented as of this encounter (statuses as of 10/02/2022) [facility] History of Past illness Narrative* Problem Noted Date Diagnosed Date Resolved Date Morbid obesity due to excess calories 08/31/2016 12/01/2016 Overview: Added automatically from request for surgery [id number] Hernia, paraesophageal 08/31/201612/01 Overview: Added automatically from request for surgery [id number] documented as of this encounter (statuses as of 10/07/2022) [facility] History of Past illness Narrative* Problem Noted Date Diagnosed Date Resolved Date Morbid obesity due to excess calories 08/31/2016 12/01/2016 Overview: Added automatically from request for surgery [id number] Hernia, paraesophageal 08/31/201612/01 Overview: Added automatically from request for surgery [id number] documented as of this encounter (statuses as of 10/08/2022) [facility] note* Diagnosis NO SHOW- Primary documented in this encounter [facility] note* Diagnosis Generalized anxiety disorder- Primary documented in this encounter [facility] note* Diagnosis NO SHOW- Primary [facility]* Diagnosis Chronic insomnia Insomnia, unspecified documented in this encounter [facility] note* Diagnosis Other insomnia documented [facility] this encounter [facility]* Diagnosis Generalized anxiety disorder- Primary documented in this encounter [facility]* Diagnosis Traumatic complete tear of right rotator cuff, subsequent encounter- Primary [facility] Diagnosis Chronic insomnia- Primary Insomnia, unspecified PIETRO (generalized anxiety disorder) Generalized anxiety disorder Post-acute sequelae of COVID-19 (PASC) [facility] Diagnosis Other insomnia [facility] this encounter [facility]* Diagnosis Right shoulder pain, unspecified chronicity- Primary documented [facility] this encounter [facility]* Diagnosis Vertigo- Primary Dizziness and giddiness [facility] Diagnosis PIETRO (generalized anxiety disorder)- Primary Generalized anxiety disorder Chronic insomnia Insomnia, unspecified documented [facility] this encounter [facility]* Diagnosis Nontraumatic complete tear of right rotator cuff- Primary Impingement syndrome of right shoulder Other affections of shoulder region, not elsewhere classified documented in this encounter [facility] note* Diagnosis Chronic insomnia- Primary Insomnia, unspecified PIETRO (generalized anxiety disorder) Generalized anxiety disorder Post-acute sequelae of COVID-19 (PASC) documented [facility] encounter [facility]* Diagnosis Other insomnia [facility]* Diagnosis TALIA (obstructive sleep apnea)- Primary [...] present Other insomnia [facility] Diagnosis Psychophysiological insomnia- Primary Persistent [...] Unspecified deficiency anemia [facility] Diagnosis Chondromalacia patellae of left knee- Primary Chondromalacia of patella Patellar tendonitis of left knee [facility] Diagnosis Chronic insomnia Insomnia, unspecified Other insomnia [facility] Diagnosis 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 Preglaucoma, unspecified Type 2 diabetes mellitus without retinopathy (HCC) Type II or unspecified type diabetes mellitus without mention of complication, not stated as uncontrolled Dermatochalasis of both upper eyelids Other chronic allergic conjunctivitis of both eyes Dry eye syndrome of bilateral lacrimal glands Tear film insufficiency, unspecified [facility] Diagnosis PVC (premature ventricular contraction)- Primary Other premature beats Palpitations TALIA (obstructive sleep apnea) Obstructive sleep apnea (adult) (pediatric) Localized edema Edema [facility] Diagnosis Encounter for gynecological examination with abnormal finding- Primary Routine gynecological examination History of cervical dysplasia Personal history of cervical dysplasia Encounter for screening mammogram for malignant neoplasm of breast Other screening mammogram Postmenopausal bleeding Urinary frequency [facility] Diagnosis Dermatochalasis of both upper eyelids- Primary Myogenic ptosis of bilateral eyelids Facial rhytids Other specified hypertrophic and atrophic condition of skin [facility] Diagnosis Type 2 diabetes mellitus with hypoglycemia without coma, without long-term current use of insulin (HCC)- Primary Hx of gastric bypass Bariatric surgery status [facility] Diagnosis Hx of gastric bypass- Primary Bariatric surgery status Type 2 diabetes mellitus with hypoglycemia without coma, without long-term current use of insulin (HCC) [facility] Diagnosis Postmenopausal bleeding [facility] Diagnosis Rheumatoid arthritis of multiple sites without rheumatoid factor (HCC) Rheumatoid arthritis Post-acute sequelae of COVID-19 (PASC) Arthralgia, unspecified joint History of rheumatoid arthritis Personal history of arthritis Instability of right shoulder joint Other joint derangement, not elsewhere classified, shoulder region Right shoulder pain, unspecified chronicity [facility] Diagnosis No-show for appointment- Primary [facility] Diagnosis Hx of papillary thyroid carcinoma- Primary Personal history of malignant neoplasm of thyroid Vitamin D insufficiency Unspecified vitamin D deficiency Hypoglycemia Hypoglycemia, unspecified Diabetes mellitus type 2 (HCC) [facility] Diagnosis Postmenopausal bleeding- Primary Ovarian cyst, left Other and unspecified ovarian cyst Abnormal endometrial ultrasound Nonspecific (abnormal) findings on radiological and other examination of genitourinary organs Thickened endometrium Nonspecific (abnormal) findings on radiological and other examination of genitourinary organs History of cervical dysplasia Personal history of cervical dysplasia [facility] Diagnosis Pre-op examination- Primary Preoperative [...] of genitourinary organs [facility] Diagnosis Palpitations- Primary Postmenopausal bleeding Abnormal endometrial ultrasound Nonspecific (abnormal) findings on radiological and other examination of genitourinary organs Thickened endometrium Nonspecific (abnormal) findings on radiological and other examination of genitourinary organs documented in this encounter [facility] note* Diagnosis Preop cardiovascular exam- Primary Pre-operative cardiovascular examination Prediabetes Other abnormal glucose TALIA (obstructive sleep apnea) Obstructive sleep apnea (adult) (pediatric) Obesity, Class II, BMI 35-39.9 Obesity, unspecified documented in this encounter [facility] note* Diagnosis Type 2 diabetes mellitus with hypoglycemia without coma, without long-term current use of insulin ([facility])- Primary Class 3 severe obesity with serious comorbidity and body mass index (BMI) of 40.0 to 44.9 in adult, unspecified obesity type ([facility]) documented in this encounter [facility] note* Diagnosis Encounter for screening mammogram for malignant neoplasm of breast Other screening mammogram documented in this encounter [facility] note* Diagnosis Type 2 diabetes mellitus with hypoglycemia without coma, without long-term current use of insulin ([facility]) documented in this encounter [facility] note* Diagnosis Cognitive complaints- Primary Other signs and symptoms involving cognition History of gastric bypass Bariatric surgery status Sleep apnea, unspecified type Postmenopausal bleeding Abnormal endometrial ultrasound Nonspecific (abnormal) findings on radiological and other examination of genitourinary organs Thickened endometrium Nonspecific (abnormal) findings on radiological and other examination of genitourinary organs documented in this encounter [facility] note* Diagnosis TALIA (obstructive sleep apnea)- [...] of genitourinary organs [facility] Diagnosis History of sleep apnea- Primary Personal history of other specified diseases Cognitive complaints Other signs and symptoms involving cognition Postmenopausal bleeding Abnormal endometrial ultrasound Nonspecific (abnormal) findings on radiological and other examination of genitourinary organs Thickened endometrium Nonspecific (abnormal) findings on radiological and other examination of genitourinary organs [facility] Diagnosis Type 2 diabetes mellitus with hyperglycemia, without long-term current use of insulin (HCC)- Primary Type 2 diabetes mellitus with hypoglycemia without coma, without long-term current use of insulin ([facility]) Class 3 severe obesity with serious comorbidity and body mass index (BMI) of 40.0 to 44.9 in adult, unspecified obesity type ([facility]) History of dumping syndrome TALIA (obstructive sleep apnea) Obstructive sleep apnea (adult) (pediatric) Postmenopausal bleeding Abnormal endometrial ultrasound Nonspecific (abnormal) findings on radiological and other examination of genitourinary organs Thickened endometrium Nonspecific (abnormal) findings on radiological and other examination of genitourinary organs [facility] Diagnosis Rheumatoid arthritis of multiple sites without rheumatoid factor ([facility]) Rheumatoid arthritis Positive anti-CCP test Other and [...] of genitourinary organs [facility] Diagnosis Chronic neck pain Cervicalgia Radiculopathy, cervical region Brachial neuritis or radiculitis nos Chronic right shoulder pain Pain in joint, shoulder region Postmenopausal bleeding Abnormal endometrial ultrasound Nonspecific (abnormal) findings on radiological and other examination of genitourinary organs Thickened endometrium Nonspecific (abnormal) findings on radiological and other examination of genitourinary organs [facility] Diagnosis Hx of papillary thyroid carcinoma Personal history of malignant neoplasm of thyroid Postmenopausal bleeding Abnormal endometrial ultrasound Nonspecific (abnormal) findings on radiological and other examination of genitourinary organs Thickened endometrium Nonspecific (abnormal) findings on radiological and other examination of genitourinary organs [facility] Diagnosis Chronic right shoulder pain Pain in joint, shoulder region Postmenopausal bleeding Abnormal endometrial ultrasound Nonspecific (abnormal) findings on radiological and other examination of genitourinary organs Thickened endometrium Nonspecific (abnormal) findings on radiological and other examination of genitourinary organs [facility] Diagnosis Pre-op evaluation- Primary Preoperative examination, unspecified TALIA (obstructive sleep apnea) Obstructive sleep apnea (adult) (pediatric) Gastroesophageal reflux disease without esophagitis Esophageal reflux Type 2 diabetes mellitus without complication, without long-term current use of insulin ([facility]) Micropapillary carcinoma of thyroid (3 mm) Malignant [...] of genitourinary organs [facility]* Diagnosis 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 Vitamin D insufficiency Unspecified vitamin D deficiency Postmenopausal bleeding Abnormal endometrial ultrasound Nonspecific (abnormal) findings on radiological and other examination of genitourinary organs Thickened endometrium Nonspecific (abnormal) findings on radiological and other examination of genitourinary organs [facility] in this encounter [facility] noteNo assessment information [facility] Phone: Evaluation note* Diagnosis Abnormal uterine bleeding due to endometrial polyp- Primary Counseling for control, intrauterine device General counseling for initiation of other contraceptive measures Postmenopausal bleeding [facility] in this [facility]* Diagnosis Dysphagia, unspecified type- Primary [facility] Diagnosis Cervical radiculopathy- Primary Brachial neuritis or radiculitis nos Acute pain of left shoulder Neck pain Cervicalgia documented in this [facility] Diagnosis Nausea- Primary Nausea alone Abdominal pain, unspecified abdominal location [facility] in this encounter [facility] Diagnosis Nausea- Primary Nausea alone [facility]* Diagnosis Nausea Nausea alone [facility]* Diagnosis Type 2 diabetes mellitus with hypoglycemia without coma, without long-term current use of insulin (HCC)- Primary [facility] in this [facility] Diagnosis Dysphagia, unspecified type- Primary Nontraumatic complete tear of right rotator cuff- Primary [facility] Diagnosis Dysphagia, unspecified type Nontraumatic complete tear of right rotator cuff- Primary [facility] in this encounter [facility]* Diagnosis Dysphagia, unspecified type [facility] Narrative No data available for this section [facility] Discharge instructions No data available for this section [facility] No data available for this section [facility] Diagnostic Procedure Only (Routine) - Pending Review Specialty Diagnoses / Procedures Referred By Contac t Referred To Contact XR IMAGING Diagnoses Right shoulder pain, unspecified chronicity Procedures XR SHOULDER ORTHO 4V AP/TRUE AP/LAT/OUTLET RIGHT RADEX SHOULDER COMPLETE MINIMUM 2 VIEWS Ibrahima Cobb MD [address] [place] [address] Xr Imaging Referral ID Status Reason Start Date Expiration Date Visits Requested Visits Authorized [id number] Pending Review Auto-Generat ed Referral 09/16/2021 10/16/2022 1 1 [facility] for referral (narrative)* Outpatient Procedure (Routine) - Closed Specialty Diagnoses / Procedures Referred By Contac t Referred To Contact [facility] Diagnoses Palpitations Procedures ECG COMPLETE ECG ROUTINE ECG W/LEAST 12 LDS W/I&R Luis F Barraza, AD TRAFFICKER.[facility] [address] [place] [address] [facility] [address] [place] [address] Referral ID Status Reason Start Date Expiration Date V isits Requested Visits Authorized [id number] Closed Auto-Generate d Referral 06/17/2022 02/07/2023 1 1 [facility] for referral (narrative)* Diagnostic Procedure Only (Routine) - Authorized Specialty Diagnoses / Procedures Referred By Contac t Referred To Contact [facility] Diagnoses Postmenopausal bleeding Procedures PELVIC US WHI US PELVIC NONOBSTETRIC REAL-[place] [address] [place] [address] [facility] [address] [place] [address] Referral ID Status Reason Start Date Expiration Date Visits Requested Visits Authorized [id number] Authorized Auto-Generat ed Referral 06/11/2022 02/07/2023 1 1 * Diagnostic Procedure Only (Routine) - Pending Review Specialty Diagnoses / Procedures Referred By Kalina burciaga Referred To Contact BR IMAGING Diagnoses Encounter for screening mammogram for malignant neoplasm of breast Procedures JUS SCREENING W SURINDER SCREENING DIGITAL BREAST TOMOSYNTHESIS BI SCREENING MAMMOGRAPHY BI 2-[place] [address] [place] [address] Br Imaging [address] [place] [phone] Referral ID Status Reason Start Date Expiration Date Visits Requested Visits Authorized [id number] Pending Review Auto-Generat ed Referral 06/11/2022 07/11/2023 1 1 [facility] for referral (narrative)* Diagnostic [...] VIEW Lorenzo Perry DO [address] [place] [address] Xr Imaging Referral ID Status Reason Start Date Expiration Date V isits Requested Visits Authorized [id number] Closed Auto-Generate d Referral 12/26/2020 01/25/2022 1 [...] SPINE AP/LATERAL Lorenzo Perry DO [address] [place], [place] [id number] Xr Imaging Referral ID Status Reason Start Date Expiration Date V isits Requested Visits Authorized [id number] Closed Auto-Generate d Referral 12/26/2020 01/25/2022 1 [...] AP/LAT W/SWIM Lorenzo Perry DO [address] [place], [place] [id number] Xr Imaging Referral ID Status Reason Start Date Expiration Date V isits Requested Visits Authorized [id number] Closed Auto-Generate d Referral 12/26/2020 01/25/2022 1 [...] 2-3 VIEWS Lorenzo Perry DO [address] [place], [place] [id number] Xr Imaging Referral ID Status Reason Start Date Expiration Date V isits Requested Visits Authorized [id number] Closed Auto-Generate d Referral 12/26/2020 01/25/2022 1 [...] KNEE AP-WGT/LAT/MERCHANT Lorenzo Perry DO [address] [place], [place] [id number] Xr Imaging Referral ID Status Reason Start Date Expiration Date V isits Requested Visits Authorized [id number] Closed Auto-Generate d Referral 12/26/2020 01/25/2022 1 [...] SURVEY,SINGLE VIEW Lorenzo Perry DO [address] [place], [place] [id number] Xr Imaging Referral ID Status Reason Start Date Expiration Date V isits Requested Visits Authorized [id number] Closed Auto-Generate d Referral 12/26/2020 01/25/2022 1 [...] VIEWS Lorenzo Perry DO [address] [place] [address] Xr Imaging Referral ID Status Reason Start Date Expiration Date V isits Requested Visits Authorized [id number] Closed Auto-Generate d Referral 12/26/2020 01/25/2022 1 1 [facility] for referral (narrative)* Diagnostic Procedure Only (Routine) - Pending Review Specialty Diagnoses / Procedures Referred By Kalina burciaga Referred To Contact US IMAGING Diagnoses Hx of papillary thyroid carcinoma Procedures US CERVICAL LYMPH NODE MAPPING US SOFT TISSUE HEAD & NECK REAL TIME IMGE Lizzie Norman MD [address] [place] [address] [place] [address] [place] [address] Referral ID Status Reason Start Date Expiration Date Visits Requested Visits Authorized [id number] Pending Review Auto-Generat ed Referral 09/30/2022 10/30/2023 1 1 [facility] for referral (narrative)* Diagnostic Procedure Only (Routine) - Pending Review Specialty Diagnoses / Procedures Referred By Kalina t Referred To Contact [facility] Diagnoses Ovarian cyst, left Procedures PELVIC US WHI US PELVIC NONOBSTETRIC REAL-[place] [address] [place] [address] [facility] [address] [place] [address] Referral ID Status Reason Start Date Expiration Date Visits Requested Visits Authorized [id number] Pending Review Auto-Generat ed Referral 10/02/2022 10/02/2023 1 1 [facility] for referral (narrative)* Outpatient Procedure (Routine) - Pending Review Specialty Diagnoses / Procedures Referred By Contac t Referred To Contact [facility] Diagnoses Prediabetes Preop cardiovascular exam TALIA (obstructive sleep apnea) Obesity, Class II, BMI 35-39.9 Procedures ECG COMPLETE ECG ROUTINE ECG W/LEAST 12 LDS W/I&[place] [address] [place] [address] [address] Referral ID Status Reason Start Date Expiration Date Visits Requested Visits Authorized [id number] Pending Review Auto-Generat ed Referral 10/23/2022 10/23/2023 1 1 [facility] for referral (narrative)* Diagnostic Procedure Only (Routine) - Closed Specialty Diagnoses / Procedures Referred By Contac t Referred To Contact XR IMAGING Diagnoses Chronic right shoulder pain Procedures XR SHOULDER GENERAL 3V OR MORE AP/TRUE AP/OTHER RT X-RAY SHOULDER COMPLET MIN 2 VIEWS Latanya Clifford APRN.CNP [address] [place] [address] Xr Imaging [id number] Referral ID Status Reason Start Date Expiration Date V isits Requested Visits Authorized [id number] Closed Auto-Generate d Referral 11/21/2020 12/21/2021 1 1 * Diagnostic Procedure Only (Routine) - Closed Specialty Diagnoses / Procedures Referred By Contac t Referred To Contact XR IMAGING Diagnoses Chronic neck pain Radiculopathy, cervical region Procedures XR CERV OTHER 4V AP/LAT/OBL X-RAY NECK MINIMUM 4 VIEWS Latanya Clifford APRN.[facility] [address] [place] [address] [place] [address] Referral ID Status Reason Start Date Expiration Date V isits Requested Visits Authorized [id number] Closed Auto-Generate d Referral 11/21/2020 12/21/2021 1 1 [facility] for referral (narrative)* Diagnostic Procedure Only (Routine) - Closed Specialty Diagnoses / Procedures Referred By Contac t Referred To Contact US IMAGING Diagnoses Hx of papillary thyroid carcinoma Procedures US CERVICAL LYMPH NODE MAPPING US SOFT TISSUE HEAD & NECK REAL TIME IMGE SHERINE Leavitt, Lizzie Leiva MD [address] [place] [address] [place] [address] Us Imaging [place] [address] Referral ID Status Reason Start Date Expiration Date V isits Requested Visits Authorized [id number] Closed Auto-Generate d Referral 10/23/2022 02/07/2023 1 1 [facility] for referral (narrative)* Diagnostic Procedure Only (Routine) - Pending Review Specialty Diagnoses / Procedures Referred By Contac t Referred To Contact XR IMAGING Diagnoses Dysphagia, unspecified type Procedures XR ESOPHAGRAM RADIOLOGIC EXAM ESOPHAGUS SINGLE CONTRAST STUDY Adilene Ordoñez APRN.[facility] [address] [place] [address] [place] [address] Referral ID Status Reason Start Date Expiration Date Visits Requested Visits Authorized [id number] Pending Review Auto-Generat ed Referral 03/22/2023 04/20/2024 1 1 * Diagnostic Procedure Only (Routine) - Pending Review Specialty Diagnoses / Procedures Referred By Contac t Referred To Contact XR IMAGING Diagnoses Dysphagia, unspecified type Procedures XR MODIFIED BARIUM SWALLOW W SPEECH THERAPY RADIOLOGIC EXAM SWALLOW FUNCTION CONTRAST STUDY Adilene Ordoñez APRN.[facility] [address] [place] [address] Xr Imaging [id number] Referral ID Status Reason Start Date Expiration Date Visits Requested Visits Authorized [id number] Pending Review Auto-Generat ed Referral 03/22/2023 04/20/2024 1 1 * Outpatient Procedure (Routine) - Pending Review Specialty Diagnoses / Procedures [facility] Diagnoses Dysphagia, unspecified type Procedures EGD - THERAPEUTIC, EUS, OR TUBE INTERVENTIONS EGD DILATION GASTRIC/DUODENAL STRICTURE Adilene Ordoñez APRN.[facility] [address] [place] [phone] [facility] [address] [place] [address] Referral ID Status Reason Start Date Expiration Date Visits Requested Visits Authorized [id number] Pending Review Auto-Generat ed Referral 03/22/2023 03/22/2024 1 1 [facility] for referral (narrative)* Diagnostic Procedure Only (Routine) - Closed Specialty Diagnoses / Procedures [facility] Referred To Contact XR IMAGING Diagnoses Dysphagia, unspecified type Procedures XR MODIFIED BARIUM SWALLOW W SPEECH THERAPY RADIOLOGIC EXAM SWALLOW FUNCTION CONTRAST STUDY Adilene Ordoñez APRN.CNP [address] [place] [address] Xr Imaging [id number] Referral ID Status Reason Start Date Expiration Date V isits Requested Visits Authorized [id number] Closed Auto-Generate d Referral 02/08/2023 02/08/2024 1 1 [facility] for referral (narrative)* Outpatient Procedure (Routine) - Closed Specialty Diagnoses / Procedures [facility] To Contact [facility] Diagnoses Dysphagia, unspecified type Procedures EGD - THERAPEUTIC, EUS, OR TUBE INTERVENTIONS EGD DILATION GASTRIC/DUODENAL STRICTURE Adilene Ordoñez APRN.[facility] [address] [place] [phone] [facility] [address] [place] [address] Referral ID Status Reason Start Date Expiration Date V isits Requested Visits Authorized [id number] Closed Auto-Generate d Referral 04/15/2023 02/08/2024 1 1 [facility] for visit Narrative* Diagnostic Procedure Only (Routine) - Closed Specialty Diagnoses / Procedures Referred By Contac t Referred To Contact [facility] Diagnoses Postmenopausal bleeding Procedures PELVIC US WHI US PELVIC NONOBSTETRIC REAL-[place] [address] [place] [id number] [address] Referral ID Status Reason Start Date Expiration Date V isits Requested Visits Authorized [id number] Closed Auto-Generate d Referral 06/11/2022 02/07/2023 1 1 [facility] for visit Narrative* Diagnostic [...] VIEW Lorenzo Perry, DO [address] [place] [address] Xr Imaging Referral ID Status Reason Start Date Expiration Date V isits Requested Visits Authorized [id number] Closed Auto-Generate d Referral 12/26/2020 01/25/2022 1 1 [facility] for visit Narrative* Diagnostic Procedure Only (Routine) - Closed Specialty Diagnoses / Procedures Referred By Contac t Referred To Contact XR IMAGING Diagnoses Chronic right shoulder pain Procedures XR SHOULDER GENERAL 3V OR MORE AP/TRUE AP/OTHER RT X-RAY SHOULDER COMPLET MIN 2 VIEWS Latanya Clifford APRN.[facility] [address] [place] [address] [place] [address] Referral ID Status Reason Start Date Expiration Date V isits Requested Visits Authorized [id number] Closed Auto-Generate d Referral 11/21/2020 12/21/2021 1 1 [facility] for visit Narrative* Diagnostic Procedure Only (Routine) - Closed Specialty Diagnoses / Procedures Referred By Contac t Referred To Contact US IMAGING Diagnoses Hx of papillary thyroid carcinoma Procedures US CERVICAL LYMPH NODE MAPPING US SOFT TISSUE HEAD & NECK REAL TIME IMGE Lizzie Norman MD [address] [place] [address] [place] [address] [place] [address] Referral ID Status Reason Start Date Expiration Date V isits Requested Visits Authorized [id number] Closed Auto-Generate d Referral 10/23/2022 02/07/2023 1 1 [facility] for visit Narrative* Outpatient Procedure (Routine) - Closed Specialty Diagnoses / Procedures Referred By Contjina t Referred To Contact [facility] Diagnoses Dysphagia, unspecified type Procedures EGD - THERAPEUTIC, EUS, OR TUBE INTERVENTIONS EGD DILATION GASTRIC/DUODENAL STRICTURE Adilene Ordoñez, AD TRAFFICKER.[facility] [address] [place] [address] [facility] [address] [place] [address] Referral ID Status Reason Start Date Expiration Date V isits Requested Visits Authorized [id number] Closed Auto-Generate d Referral 04/15/2023 02/08/2024 1 1 [facility] Summary Purpose Family History No Family [...] FoundDocuments on File Type Date Recorded Patient Shipping Order Clerk Expl anation Advance Directive(s) Advance Directive(s) 10/30/2020 7:21 AM Advance Directive(s) 10/13/2017 7:41 AM Advance Directive(s) 12/06/2016 9:28 PM Advance Directive(s) 11/05/2016 3:50 PM Advance Directive(s) 11/05/2016 3:51 PM Documents on File Type Date Recorded Patient Shipping Order Clerk Expl anation Advance Directive(s) Advance Directive(s) 10/30/2020 7:21 AM Advance Directive(s) 10/13/2017 7:41 AM Advance Directive(s) 12/06/2016 9:28 PM Advance Directive(s) 11/05/2016 3:50 PM Advance Directive(s) 11/05/2016 3:51 PM Documents on File Type Date Recorded Patient Shipping Order Clerk Expl anation Advance Directive(s) 11/05/2016 3:51 PM Documents on File Type Date Recorded Patient Shipping Order Clerk Expl anation Advance Directive(s) 11/05/2016 3:51 PM [...] encounter Procedures CONSULT PANEL TO ORTHOPAEDICS OFFICE/OUTPATIENT [facility] 60-74 MINUTES Lorenzo Perry, [address] [place] [address] Referral ID Status Reason Start Date Expiration Date Visits Requested Visits Authorized [id number] Authorized PCP Requested Referral 09/05/2021 09/05/2022 1 1 Specialty Diagnoses / Procedures Referred By Kalina burciaga Referred To Contact [facility] Diagnoses Chondromalacia patellae of left knee Patellar tendonitis of left knee Procedures CONSULT TO PHYSICAL THERAPY PHYSICAL THERAPY EVALUATION [facility] 45 MINS Terrell Mayo PA-C [address] [place] [address] [facility] [address] [address] Referral ID Status Reason Start Date Expiration Date Visits Requested Visits Authorized [id number] Authorized Auto-Generat ed Referral 02/08/2021 02/07/2022 30 30 Specialty Diagnoses / Procedures Referred By Kalina burciaga Referred To Contact Marichuy Suarez MD [address] [place] [address] Referral ID Status Reason Start Date Expiration Date Visits Re quested Visits Authorized [id number] Closed 1 1 Specialty Diagnoses / Procedures Referred By Contac t Referred To Contact Chepe Shea APRN.[facility] [address] [place] [phone] Referral ID Status Reason Start Date Expiration Date Visits Re quested Visits Authorized [id number] Closed 1 1 Specialty Diagnoses / Procedures Referred By Contac t Referred To Contact Diagnoses Abnormal weight gain S/P bariatric surgery Obesity, Class II, BMI 35-39.9 Vitamin B12 deficiency Vitamin D deficiency Anemia, unspecified type Gastroesophageal reflux disease, unspecified whether esophagitis present Rachel Yi MD [address] [place] [phone] Referral ID Status Reason Start Date Expiration Date Visits Re quested Visits Authorized [id number] Closed 1 1 Specialty Diagnoses / Procedures Referred By Contac t Referred To Contact [facility] Diagnoses Chronic right shoulder pain Procedures MRI SHOULDER WO IVCON RT MRI, JOINT UPPER EXTREM Lorenzo Perry DO [address] [place] [id number] [facility] [place] [address] Referral ID Status Reason Start Date Expiration Date Visits Requested Visits Authorized [id number] Closed Auto-Generated Referral Patient Cleared Patient agrees to sign AFR (INN Commercial or OON MA) 01/07/2021 02/07/2021 1 1 Specialty Diagnoses / Procedures Referred By Contac t Referred To Contact [facility] Diagnoses Neck pain Procedures CONSULT TO [facility] OFFICE/OUTPATIENT [facility] MDM 60 MINUTES Hilario Leavitt DO [address] [place] [address] Referral ID Status Reason Start Date Expiration Date Visits Requested Visits Authorized [id number] Authorized PCP Requested Referral 04/01/2023 03/31/2024 1 1 Specialty Diagnoses / Procedures Referred By Contac t Referred To Contact [facility] Diagnoses Acute pain of left shoulder Neck pain Procedures CONSULT TO PHYSICAL THERAPY PHYSICAL THERAPY EVALUATION [facility] 45 MINS Hilario Leavitt DO [address] [place] [address] [facility] [address] [place] [address] Referral ID Status Reason Start Date Expiration Date Visits Requested Visits Authorized [id number] Authorized Auto-Generat ed Referral 02/08/2023 02/08/2024 30 30 Specialty Diagnoses / Procedures Referred By Contac t Referred To Contact XR IMAGING Diagnoses Acute pain of left shoulder Neck pain Procedures XR CERV OTHER 4V AP/LAT/OBL RADEX SPINE CERVICAL 4 OR 5 VIEWS Hilario Leavitt, DO [address] [place] [address] [place] [address] Referral ID Status Reason Start Date Expiration Date V isits Requested Visits Authorized [id number] Closed Auto-Generate d Referral 04/01/2023 04/30/2024 1 1 Specialty Diagnoses / Procedures Referred By Contac t Referred To Contact XR IMAGING Diagnoses Acute pain of left shoulder Procedures XR SHOULDER GENERAL 3V OR MORE AP/TRUE AP/OTHER LEFT RADEX SHOULDER COMPLETE MINIMUM 2 VIEWS Hilario Leavitt, DO [address] [place] [address] [place] [address] Referral ID Status Reason Start Date Expiration Date V isits Requested Visits Authorized [id number] Closed Auto-Generate d Referral 04/01/2023 04/30/2024 1 1 Specialty Diagnoses / Procedures Referred By Contac t Referred To Contact CT IMAGING Diagnoses Abdominal pain, unspecified abdominal location Procedures CT PELVIS WO IVCON CT PELVIS W/O CONTRAST MATERIAL Adilene Ordoñez, AD TRAFFICKER.[facility] [address] [place] [address] [place] [address] Referral ID Status Reason Start Date Expiration Date V isits Requested Visits Authorized [id number] Closed Auto-Generate d Referral 04/15/2023 05/14/2024 1 1 Specialty Diagnoses / Procedures Referred By Contac t Referred To Contact CT IMAGING Diagnoses Nausea Procedures CT ABDOMEN WO IVCON CT ABDOMEN W/O CONTRAST Adilene Ordoñez, AD TRAFFICKER.[facility] [address] [place] [address] [place] [address] Referral ID Status Reason Start Date Expiration Date V isits Requested Visits Authorized [id number] Closed Auto-Generate d Referral 04/15/2023 05/14/2024 1 1 Specialty Diagnoses / Procedures Referred By Contac t Referred To Contact CT IMAGING Diagnoses Nausea Procedures CT ABD/PEL W IVCON CT ABD & PELVIS W/CONTRAST Adilene Ordoñez, AD TRAFFICKER.[facility] [address] [place] [phone] Imaging [id number] Referral ID Status Reason Start Date Expiration Date V isits Requested Visits Authorized [id number] Closed Auto-Generate d Referral 04/14/2023 02/08/2024 1 1 Specialty Diagnoses / Procedures Referred By Contac t Referred To Contact CT IMAGING Diagnoses Nausea Procedures CT ABD/PEL WO IVCON CT ABD & PELVIS W/O CONTRAST Adilene Ordoñez, AD TRAFFICKER.[facility] [address] [place] [phone] Imaging [id number] Referral ID Status Reason Start Date Expiration Date V isits Requested Visits Authorized [id number] Closed Auto-Generate d Referral 04/15/2023 05/14/2024 1 1 Chief Complaint and Reason for Visit Chief Complaint xanx withdraw Chief Complaint xanx withdraw panic attack Chief Complaint [facility] Additional Source Comments INFORMATION SOURCE (unrecogn ized section and content) DATE CREATED AUTHOR 10/23/2017 [facility] DATE CREATED AUTHOR AUTHOR'S ORGANIZ ATION 10/08/2020 [facility] DATE CREATED AUTHOR AUTHOR'S ORGANIZ ATION 07/21/2022 [facility] DATE CREATED AUTHOR AUTHOR'S ORGANIZ ATION 07/21/2022 [facility] DATE CREATED AUTHOR AUTHOR'S ORGANIZ ATION 01/02/2023 [facility] DATE CREATED AUTHOR AUTHOR'S ORGANIZ ATION 03/28/2023 [facility] DATE CREATED AUTHOR AUTHOR'S ORGANIZ ATION 04/24/2023 [facility] DATE CREATED AUTHOR AUTHOR'S ORGANIZ ATION 06/04/2023 [facility] DATE CREATED AUTHOR AUTHOR'S YOU ATION 06/05/2023 [facility] [employer] Source Comments (unrecognize d section and content) In the event this informatio n is protected by the Federal Confidentiality of Alcohol and Drug Abuse Patient Records regulations: The Federal rules restrict any use of the information to criminally investigate or prosecute any alcohol or drug abuse patient.[facility] HospitalIn the event this information is protected by the Federal Confidentiality of Alcohol and Drug Abuse Patient Records regulations: The Federal rules restrict any use of the information to criminally investigate or prosecute any alcohol or drug abuse patient.[facility] HospitalIn the event this information is protected by the Federal Confidentiality of Alcohol and Drug Abuse Patient Records regulations: The Federal rules restrict any use of the information to criminally investigate or prosecute any alcohol or drug abuse patient.[facility] HospitalIn the event this information is protected by the Federal Confidentiality of Alcohol and Drug Abuse Patient Records regulations: The Federal rules restrict any use of the information to criminally investigate or prosecute any alcohol or drug abuse patient.[facility] HospitalIn the event this information is protected by the Federal Confidentiality of Alcohol and Drug Abuse Patient Records regulations: The Federal rules restrict any use of the information to criminally investigate or prosecute any alcohol or drug abuse patient.[facility] HospitalIn the event this information is protected by the Federal Confidentiality of Alcohol and Drug Abuse Patient Records regulations: The Federal rules restrict any use of the information to criminally investigate or prosecute any alcohol or drug abuse patient.[facility] HospitalIn the event this information is protected by the Federal Confidentiality of Alcohol and Drug Abuse Patient Records regulations: The Federal rules restrict any use of the information to criminally investigate or prosecute any alcohol or drug abuse patient.[facility] HospitalIn the event this information is protected by the Federal Confidentiality of Alcohol and Drug Abuse Patient Records regulations: The Federal rules restrict any use of the information to criminally investigate or prosecute any alcohol or drug abuse patient.[facility] HospitalIn the event this information is protected by the Federal Confidentiality of Alcohol and Drug Abuse Patient Records regulations: The Federal rules restrict any use of the information to criminally investigate or prosecute any alcohol or drug abuse patient.[facility] HospitalIn the event this information is protected by the Federal Confidentiality of Alcohol and Drug Abuse Patient Records regulations: The Federal rules restrict any use of the information to criminally investigate or prosecute any alcohol or drug abuse patient.[facility] HospitalIn the event this information is protected by the Federal Confidentiality of Alcohol and Drug Abuse Patient Records regulations: The Federal rules restrict any use of the information to criminally investigate or prosecute any alcohol or drug abuse patient.[facility] HospitalIn the event this information is protected by the Federal Confidentiality of Alcohol and Drug Abuse Patient Records regulations: The Federal rules restrict any use of the information to criminally investigate or prosecute any alcohol or drug abuse patient.[facility] HospitalIn the event this information is protected by the Federal Confidentiality of Alcohol and Drug Abuse Patient Records regulations: The Federal rules restrict any use of the information to criminally investigate or prosecute any alcohol or drug abuse patient.[facility] HospitalIn the event this information is protected by the Federal Confidentiality of Alcohol and Drug Abuse Patient Records regulations: The Federal rules restrict any use of the information to criminally investigate or prosecute any alcohol or drug abuse patient.[facility] HospitalIn the event this information is protected by the Federal Confidentiality of Alcohol and Drug Abuse Patient Records regulations: The Federal rules restrict any use of the information to criminally investigate or prosecute any alcohol or drug abuse patient.[facility] HospitalIn the event this information is protected by the Federal Confidentiality of Alcohol and Drug Abuse Patient Records regulations: The Federal rules restrict any use of the information to criminally investigate or prosecute any alcohol or drug abuse patient.[facility] HospitalIn the event this information is protected by the Federal Confidentiality of Alcohol and Drug Abuse Patient Records regulations: The Federal rules restrict any use of the information to criminally investigate or prosecute any alcohol or drug abuse patient.[facility] HospitalIn the event this information is protected by the Federal Confidentiality of Alcohol and Drug Abuse Patient Records regulations: The Federal rules restrict any use of the information to criminally investigate or prosecute any alcohol or drug abuse patient.[facility] HospitalIn the event this information is protected by the Federal Confidentiality of Alcohol and Drug Abuse Patient Records regulations: The Federal rules restrict any use of the information to criminally investigate or prosecute any alcohol or drug abuse patient.[facility] HospitalIn the event this information is protected by the Federal Confidentiality of Alcohol and Drug Abuse Patient Records regulations: The Federal rules restrict any use of the information to criminally investigate or prosecute any alcohol or drug abuse patient.[facility] HospitalIn the event this information is protected by the Federal Confidentiality of Alcohol and Drug Abuse Patient Records regulations: The Federal rules restrict any use of the information to criminally investigate or prosecute any alcohol or drug abuse patient.[facility] HospitalIn the event this information is protected by the Federal Confidentiality of Alcohol and Drug Abuse Patient Records regulations: The Federal rules restrict any use of the information to criminally investigate or prosecute any alcohol or drug abuse patient.[facility] HospitalIn the event this information is protected by the Federal Confidentiality of Alcohol and Drug Abuse Patient Records regulations: The Federal rules restrict any use of the information to criminally investigate or prosecute any alcohol or drug abuse patient.[facility] HospitalIn the event this information is protected by the Federal Confidentiality of Alcohol and Drug Abuse Patient Records regulations: The Federal rules restrict any use of the information to criminally investigate or prosecute any alcohol or drug abuse patient.[facility] HospitalIn the event this information is protected by the Federal Confidentiality of Alcohol and Drug Abuse Patient Records regulations: The Federal rules restrict any use of the information to criminally investigate or prosecute any alcohol or drug abuse patient.[facility] HospitalIn the event this information is protected by the Federal Confidentiality of Alcohol and Drug Abuse Patient Records regulations: The Federal rules restrict any use of the information to criminally investigate or prosecute any alcohol or drug abuse patient.[facility] HospitalIn the event this information is protected by the Federal Confidentiality of Alcohol and Drug Abuse Patient Records regulations: The Federal rules restrict any use of the information to criminally investigate or prosecute any alcohol or drug abuse patient.[facility] HospitalIn the event this information is protected by the Federal Confidentiality of Alcohol and Drug Abuse Patient Records regulations: The Federal rules restrict any use of the information to criminally investigate or prosecute any alcohol or drug abuse patient.[facility] HospitalIn the event this information is protected by the Federal Confidentiality of Alcohol and Drug Abuse Patient Records regulations: The Federal rules restrict any use of the information to criminally investigate or prosecute any alcohol or drug abuse patient.[facility] HospitalIn the event this information is protected by the Federal Confidentiality of Alcohol and Drug Abuse Patient Records regulations: The Federal rules restrict any use of the information to criminally investigate or prosecute any alcohol or drug abuse patient.[facility] HospitalIn the event this information is protected by the Federal Confidentiality of Alcohol and Drug Abuse Patient Records regulations: The Federal rules restrict any use of the information to criminally investigate or prosecute any alcohol or drug abuse patient.[facility] HospitalIn the event this information is protected by the Federal Confidentiality of Alcohol and Drug Abuse Patient Records regulations: The Federal rules restrict any use of the information to criminally investigate or prosecute any alcohol or drug abuse patient.[facility] HospitalIn the event this information is protected by the Federal Confidentiality of Alcohol and Drug Abuse Patient Records regulations: The Federal rules restrict any use of the information to criminally investigate or prosecute any alcohol or drug abuse patient.[facility] HospitalIn the event this information is protected by the Federal Confidentiality of Alcohol and Drug Abuse Patient Records regulations: The Federal rules restrict any use of the information to criminally investigate or prosecute any alcohol or drug abuse patient.[facility] HospitalIn the event this information is protected by the Federal Confidentiality of Alcohol and Drug Abuse Patient Records regulations: The Federal rules restrict any use of the information to criminally investigate or prosecute any alcohol or drug abuse patient.[facility] HospitalIn the event this information is protected by the Federal Confidentiality of Alcohol and Drug Abuse Patient Records regulations: The Federal rules restrict any use of the information to criminally investigate or prosecute any alcohol or drug abuse patient.[facility] HospitalIn the event this information is protected by the Federal Confidentiality of Alcohol and Drug Abuse Patient Records regulations: The Federal rules restrict any use of the information to criminally investigate or prosecute any alcohol or drug abuse patient.[facility] HospitalIn the event this information is protected by the Federal Confidentiality of Alcohol and Drug Abuse Patient Records regulations: The Federal rules restrict any use of the information to criminally investigate or prosecute any alcohol or drug abuse patient.[facility] HospitalIn the event this information is protected by the Federal Confidentiality of Alcohol and Drug Abuse Patient Records regulations: The Federal rules restrict any use of the information to criminally investigate or prosecute any alcohol or drug abuse patient.[facility] HospitalIn the event this information is protected by the Federal Confidentiality of Alcohol and Drug Abuse Patient Records regulations: The Federal rules restrict any use of the information to criminally investigate or prosecute any alcohol or drug abuse patient.[facility] HospitalIn the event this information is protected by the Federal Confidentiality of Alcohol and Drug Abuse Patient Records regulations: The Federal rules restrict any use of the information to criminally investigate or prosecute any alcohol or drug abuse patient.[facility] HospitalIn the event this information is protected by the Federal Confidentiality of Alcohol and Drug Abuse Patient Records regulations: The Federal rules restrict any use of the information to criminally investigate or prosecute any alcohol or drug abuse patient.[facility] HospitalIn the event this information is protected by the Federal Confidentiality of Alcohol and Drug Abuse Patient Records regulations: The Federal rules restrict any use of the information to criminally investigate or prosecute any alcohol or drug abuse patient.[facility] HospitalIn the event this information is protected by the Federal Confidentiality of Alcohol and Drug Abuse Patient Records regulations: The Federal rules restrict any use of the information to criminally investigate or prosecute any alcohol or drug abuse patient.[facility] HospitalIn the event this information is protected by the Federal Confidentiality of Alcohol and Drug Abuse Patient Records regulations: The Federal rules restrict any use of the information to criminally investigate or prosecute any alcohol or drug abuse patient.[facility] HospitalIn the event this information is protected by the Federal Confidentiality of Alcohol and Drug Abuse Patient Records regulations: The Federal rules restrict any use of the information to criminally investigate or prosecute any alcohol or drug abuse patient.[facility] HospitalIn the event this information is protected by the Federal Confidentiality of Alcohol and Drug Abuse Patient Records regulations: The Federal rules restrict any use of the information to criminally investigate or prosecute any alcohol or drug abuse patient.[facility] HospitalIn the event this information is protected by the Federal Confidentiality of Alcohol and Drug Abuse Patient Records regulations: The Federal rules restrict any use of the information to criminally investigate or prosecute any alcohol or drug abuse patient.[facility] HospitalIn the event this information is protected by the Federal Confidentiality of Alcohol and Drug Abuse Patient Records regulations: The Federal rules restrict any use of the information to criminally investigate or prosecute any alcohol or drug abuse patient.[facility] HospitalIn the event this information is protected by the Federal Confidentiality of Alcohol and Drug Abuse Patient Records regulations: The Federal rules restrict any use of the information to criminally investigate or prosecute any alcohol or drug abuse patient.[facility] HospitalIn the event this information is protected by the Federal Confidentiality of Alcohol and Drug Abuse Patient Records regulations: The Federal rules restrict any use of the information to criminally investigate or prosecute any alcohol or drug abuse patient.[facility] HospitalIn the event this information is protected by the Federal Confidentiality of Alcohol and Drug Abuse Patient Records regulations: The Federal rules restrict any use of the information to criminally investigate or prosecute any alcohol or drug abuse patient.[facility] HospitalIn the event this information is protected by the Federal Confidentiality of Alcohol and Drug Abuse Patient Records regulations: The Federal rules restrict any use of the information to criminally investigate or prosecute any alcohol or drug abuse patient.[facility] HospitalIn the event this information is protected by the Federal Confidentiality of Alcohol and Drug Abuse Patient Records regulations: The Federal rules restrict any use of the information to criminally investigate or prosecute any alcohol or drug abuse patient.[facility] HospitalIn the event this information is protected by the Federal Confidentiality of Alcohol and Drug Abuse Patient Records regulations: The Federal rules restrict any use of the information to criminally investigate or prosecute any alcohol or drug abuse patient.[facility] HospitalIn the event this information is protected by the Federal Confidentiality of Alcohol and Drug Abuse Patient Records regulations: The Federal rules restrict any use of the information to criminally investigate or prosecute any alcohol or drug abuse patient.[facility] HospitalIn the event this information is protected by the Federal Confidentiality of Alcohol and Drug Abuse Patient Records regulations: The Federal rules restrict any use of the information to criminally investigate or prosecute any alcohol or drug abuse patient.[facility] HospitalIn the event this information is protected by the Federal Confidentiality of Alcohol and Drug Abuse Patient Records regulations: The Federal rules restrict any use of the information to criminally investigate or prosecute any alcohol or drug abuse patient.[facility] HospitalIn the event this information is protected by the Federal Confidentiality of Alcohol and Drug Abuse Patient Records regulations: The Federal rules restrict any use of the information to criminally investigate or prosecute any alcohol or drug abuse patient.[facility] HospitalIn the event this information is protected by the Federal Confidentiality of Alcohol and Drug Abuse Patient Records regulations: The Federal rules restrict any use of the information to criminally investigate or prosecute any alcohol or drug abuse patient.[facility] HospitalIn the event this information is protected by the Federal Confidentiality of Alcohol and Drug Abuse Patient Records regulations: The Federal rules restrict any use of the information to criminally investigate or prosecute any alcohol or drug abuse patient.[facility] HospitalIn the event this information is protected by the Federal Confidentiality of Alcohol and Drug Abuse Patient Records regulations: The Federal rules restrict any use of the information to criminally investigate or prosecute any alcohol or drug abuse patient.[facility] HospitalIn the event this information is protected by the Federal Confidentiality of Alcohol and Drug Abuse Patient Records regulations: The Federal rules restrict any use of the information to criminally investigate or prosecute any alcohol or drug abuse patient.[facility] HospitalIn the event this information is protected by the Federal Confidentiality of Alcohol and Drug Abuse Patient Records regulations: The Federal rules restrict any use of the information to criminally investigate or prosecute any alcohol or drug abuse patient.[facility] HospitalIn the event this information is protected by the Federal Confidentiality of Alcohol and Drug Abuse Patient Records regulations: The Federal rules restrict any use of the information to criminally investigate or prosecute any alcohol or drug abuse patient.[facility] HospitalIn the event this information is protected by the Federal Confidentiality of Alcohol and Drug Abuse Patient Records regulations: The Federal rules restrict any use of the information to criminally investigate or prosecute any alcohol or drug abuse patient.[facility] HospitalIn the event this information is protected by the Federal Confidentiality of Alcohol and Drug Abuse Patient Records regulations: The Federal rules restrict any use of the information to criminally investigate or prosecute any alcohol or drug abuse patient.[facility] HospitalIn the event this information is protected by the Federal Confidentiality of Alcohol and Drug Abuse Patient Records regulations: The Federal rules restrict any use of the information to criminally investigate or prosecute any alcohol or drug abuse patient.[facility] HospitalIn the event this information is protected by the Federal Confidentiality of Alcohol and Drug Abuse Patient Records regulations: The Federal rules restrict any use of the information to criminally investigate or prosecute any alcohol or drug abuse patient.[facility] HospitalIn the event this information is protected by the Federal Confidentiality of Alcohol and Drug Abuse Patient Records regulations: The Federal rules restrict any use of the information to criminally investigate or prosecute any alcohol or drug abuse patient.[facility] HospitalIn the event this information is protected by the Federal Confidentiality of Alcohol and Drug Abuse Patient Records regulations: The Federal rules restrict any use of the information to criminally investigate or prosecute any alcohol or drug abuse patient.[facility] HospitalIn the event this information is protected by the Federal Confidentiality of Alcohol and Drug Abuse Patient Records regulations: The Federal rules restrict any use of the information to criminally investigate or prosecute any alcohol or drug abuse patient.[facility] HospitalIn the event this information is protected by the Federal Confidentiality of Alcohol and Drug Abuse Patient Records regulations: The Federal rules restrict any use of the information to criminally investigate or prosecute any alcohol or drug abuse patient.[facility] HospitalIn the event this information is protected by the Federal Confidentiality of Alcohol and Drug Abuse Patient Records regulations: The Federal rules restrict any use of the information to criminally investigate or prosecute any alcohol or drug abuse patient.[facility] HospitalIn the event this information is protected by the Federal Confidentiality of Alcohol and Drug Abuse Patient Records regulations: The Federal rules restrict any use of the information to criminally investigate or prosecute any alcohol or drug abuse patient.[facility] HospitalIn the event this information is protected by the Federal Confidentiality of Alcohol and Drug Abuse Patient Records regulations: The Federal rules restrict any use of the information to criminally investigate or prosecute any alcohol or drug abuse patient.[facility] HospitalIn the event this information is protected by the Federal Confidentiality of Alcohol and Drug Abuse Patient Records regulations: The Federal rules restrict any use of the information to criminally investigate or prosecute any alcohol or drug abuse patient.[facility] HospitalIn the event this information is protected by the Federal Confidentiality of Alcohol and Drug Abuse Patient Records regulations: The Federal rules restrict any use of the information to criminally investigate or prosecute any alcohol or drug abuse patient.[facility] HospitalIn the event this information is protected by the Federal Confidentiality of Alcohol and Drug Abuse Patient Records regulations: The Federal rules restrict any use of the information to criminally investigate or prosecute any alcohol or drug abuse patient.[facility] HospitalIn the event this information is protected by the Federal Confidentiality of Alcohol and Drug Abuse Patient Records regulations: The Federal rules restrict any use of the information to criminally investigate or prosecute any alcohol or drug abuse patient.[facility] HospitalIn the event this information is protected by the Federal Confidentiality of Alcohol and Drug Abuse Patient Records regulations: The Federal rules restrict any use of the information to criminally investigate or prosecute any alcohol or drug abuse patient.[facility] HospitalIn the event this information is protected by the Federal Confidentiality of Alcohol and Drug Abuse Patient Records regulations: The Federal rules restrict any use of the information to criminally investigate or prosecute any alcohol or drug abuse patient.[facility] HospitalIn the event this information is protected by the Federal Confidentiality of Alcohol and Drug Abuse Patient Records regulations: The Federal rules restrict any use of the information to criminally investigate or prosecute any alcohol or drug abuse patient.[facility] HospitalIn the event this information is protected by the Federal Confidentiality of Alcohol and Drug Abuse Patient Records regulations: The Federal rules restrict any use of the information to criminally investigate or prosecute any alcohol or drug abuse patient.[facility] HospitalIn the event this information is protected by the Federal Confidentiality of Alcohol and Drug Abuse Patient Records regulations: The Federal rules restrict any use of the information to criminally investigate or prosecute any alcohol or drug abuse patient.[facility] HospitalIn the event this information is protected by the Federal Confidentiality of Alcohol and Drug Abuse Patient Records regulations: The Federal rules restrict any use of the information to criminally investigate or prosecute any alcohol or drug abuse patient.[facility] HospitalIn the event this information is protected by the Federal Confidentiality of Alcohol and Drug Abuse Patient Records regulations: The Federal rules restrict any use of the information to criminally investigate or prosecute any alcohol or drug abuse patient.[facility] HospitalIn the event this information is protected by the Federal Confidentiality of Alcohol and Drug Abuse Patient Records regulations: The Federal rules restrict any use of the information to criminally investigate or prosecute any alcohol or drug abuse patient.[facility] HospitalIn the event this information is protected by the Federal Confidentiality of Alcohol and Drug Abuse Patient Records regulations: The Federal rules restrict any use of the information to criminally investigate or prosecute any alcohol or drug abuse patient.[facility] HospitalIn the event this information is protected by the Federal Confidentiality of Alcohol and Drug Abuse Patient Records regulations: The Federal rules restrict any use of the information to criminally investigate or prosecute any alcohol or drug abuse patient.[facility] HospitalIn the event this information is protected by the Federal Confidentiality of Alcohol and Drug Abuse Patient Records regulations: The Federal rules restrict any use of the information to criminally investigate or prosecute any alcohol or drug abuse patient.[facility] HospitalIn the event this information is protected by the Federal Confidentiality of Alcohol and Drug Abuse Patient Records regulations: The Federal rules restrict any use of the information to criminally investigate or prosecute any alcohol or drug abuse patient.[facility] HospitalIn the event this information is protected by the Federal Confidentiality of Alcohol and Drug Abuse Patient Records regulations: The Federal rules restrict any use of the information to criminally investigate or prosecute any alcohol or drug abuse patient.[facility] HospitalIn the event this information is protected by the Federal Confidentiality of Alcohol and Drug Abuse Patient Records regulations: The Federal rules restrict any use of the information to criminally investigate or prosecute any alcohol or drug abuse patient.[facility] HospitalIn the event this information is protected by the Federal Confidentiality of Alcohol and Drug Abuse Patient Records regulations: The Federal rules restrict any use of the information to criminally investigate or prosecute any alcohol or drug abuse patient.[facility] HospitalIn the event this information is protected by the Federal Confidentiality of Alcohol and Drug Abuse Patient Records regulations: The Federal rules restrict any use of the information to criminally investigate or prosecute any alcohol or drug abuse patient.[facility] HospitalIn the event this information is protected by the Federal Confidentiality of Alcohol and Drug Abuse Patient Records regulations: The Federal rules restrict any use of the information to criminally investigate or prosecute any alcohol or drug abuse patient.[facility] HospitalIn the event this information is protected by the Federal Confidentiality of Alcohol and Drug Abuse Patient Records regulations: The Federal rules restrict any use of the information to criminally investigate or prosecute any alcohol or drug abuse patient.[facility] HospitalIn the event this information is protected by the Federal Confidentiality of Alcohol and Drug Abuse Patient Records regulations: The Federal rules restrict any use of the information to criminally investigate or prosecute any alcohol or drug abuse patient.[facility] HospitalIn the event this information is protected by the Federal Confidentiality of Alcohol and Drug Abuse Patient Records regulations: The Federal rules restrict any use of the information to criminally investigate or prosecute any alcohol or drug abuse patient.[facility] HospitalIn the event this information is protected by the Federal Confidentiality of Alcohol and Drug Abuse Patient Records regulations: The Federal rules restrict any use of the information to criminally investigate or prosecute any alcohol or drug abuse patient.[facility] HospitalIn the event this information is protected by the Federal Confidentiality of Alcohol and Drug Abuse Patient Records regulations: The Federal rules restrict any use of the information to criminally investigate or prosecute any alcohol or drug abuse patient.[facility] HospitalIn the event this information is protected by the Federal Confidentiality of Alcohol and Drug Abuse Patient Records regulations: The Federal rules restrict any use of the information to criminally investigate or prosecute any alcohol or drug abuse patient.[facility] HospitalIn the event this information is protected by the Federal Confidentiality of Alcohol and Drug Abuse Patient Records regulations: The Federal rules restrict any use of the information to criminally investigate or prosecute any alcohol or drug abuse patient.[facility] HospitalIn the event this information is protected by the Federal Confidentiality of Alcohol and Drug Abuse Patient Records regulations: The Federal rules restrict any use of the information to criminally investigate or prosecute any alcohol or drug abuse patient.[facility] HospitalIn the event this information is protected by the Federal Confidentiality of Alcohol and Drug Abuse Patient Records regulations: The Federal rules restrict any use of the information to criminally investigate or prosecute any alcohol or drug abuse patient.[facility] HospitalIn the event this information is protected by the Federal Confidentiality of Alcohol and Drug Abuse Patient Records regulations: The Federal rules restrict any use of the information to criminally investigate or prosecute any alcohol or drug abuse patient.[facility] Reason for Visit (unrecogniz ed section and content) Reason Comments Anxiety Specialty Diagnoses / Procedures Referred By Contac t Referred To Contact Psych/Mental Health / WELLNESS Diagnoses MyChart Zoom MIND BODY Procedures PSYCHOTHERAPY 45 MINUTES WITH PATIENT VIDEO PSYC/PSYL EST Self Gloria Snell, [facility] [address] [facility] [address] [place] [address] Referral ID Status Reason Start Date Expiration Date Visits Requested Visits Authorized [id number] Authorized Benefit Check 02/17/2021 02/07/2022 99 99 Reason Comments No Show Specialty Diagnoses / Procedures Referred By Contac t Referred To Contact [facility] Diagnoses Chronic right-sided low back pain with right-sided sciatica Traumatic complete tear of right rotator cuff, subsequent encounter Procedures CONSULT TO PAIN MGT OFFICE/OUTPATIENT NEW HIGH MDM 60-74 MINUTES Lorenzo Perry, DO [address] [place], [place] [id number] Anesthesia [address] [place] [address] Referral ID Status Reason Start Date Expiration Date V isits Requested Visits Authorized [id number] Closed PCP Requested Referral 04/15/2021 04/15/2022 1 [...] PSYC/PSYL EST MD Channing Diaz Dawn M, [facility] [address] [facility] [address] [place] [address] Reason Comments Follow-up Shoulder Pain Reason Comments Sleep Problem 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 Reason Comments [...] Procedures CONSULT PANEL TO ORTHOPAEDICS OFFICE/OUTPATIENT NEW [facility] MDM 60-74 MINUTES Lorenzo Perry, DO [address] [place] [id number] Referral ID Status Reason Start Date Expiration Date V isits Requested Visits Authorized [id number] Closed PCP Requested Referral 09/05/2021 09/05/2022 1 [...] [facility] [address] [place] [address] [facility] [address] [place] [address] Referral ID Status Reason Start Date Expiration Date V isits Requested Visits Authorized [id number] Closed Auto-Generate d Referral 10/05/2022 02/07/2023 2 [...] EXTREM Lorenzo Perry, DO [address] [place] [address] Mr Imaging [id number] Referral ID Status Reason Start Date Expiration Date Visits Requested Visits Authorized [id number] Closed Auto-Generated Referral Patient Cleared Patient agrees [...] ABD & PELVIS W/O CONTRAST Adilene Ordoñez, [facility] [id number] Imaging [id number] Referral ID Status Reason Start Date Expiration Date V isits Requested Visits Authorized [id number] Closed Auto-Generate d Referral 04/15/2023 05/14/2024 1 1 Specialty Diagnoses / Procedures Referred By Contac t Referred To Contact CT IMAGING Diagnoses Nausea Procedures CT ABD/PEL W IVCON CT ABD & PELVIS W/CONTRAST Adilene Ordoñez, [facility] [address] [place] [id number] Imaging [id number] Referral ID Status Reason Start Date Expiration Date V isits Requested Visits Authorized [id number] Closed Auto-Generate d Referral 04/14/2023 02/08/2024 1 1 Reason Comments Speech Instrumental Swallow Eval Speech Discharge Specialty Diagnoses / Procedures Referred By Contac t Referred To Contact XR IMAGING Diagnoses Dysphagia, unspecified type Procedures XR MODIFIED BARIUM SWALLOW W SPEECH THERAPY RADIOLOGIC EXAM SWALLOW FUNCTION CONTRAST STUDY Adilene Ordoñez, [facility] [address] [place] [address] Xr Imaging [id number] Referral ID Status Reason Start Date Expiration Date V isits Requested Visits Authorized [id number] Closed Auto-Generate d Referral 02/08/2023 02/08/2024 1 1 Reason Comments Radio Gen RMP Specialty Diagnoses / Procedures Referred By Contac t Referred To Contact XR IMAGING Diagnoses Dysphagia, unspecified type Procedures XR MODIFIED BARIUM SWALLOW W SPEECH THERAPY RADIOLOGIC EXAM SWALLOW FUNCTION CONTRAST STUDY Adilene Ordoñez, AD TRAFFICKER[facility] [address] [place] [phone] [place] [address] Reason Comments Appointment Pain Care Teams (unrecognized [...] Attending Provider Active Start: May 25, 2023 Pharmaceutical Engineer Relationship Specialty Start Date End Date Farhat Pineda MD [address] [place] [address] PCP - General Family Practice 01/13/11 Pharmaceutical Engineer Relationship Specialty Start Date End Date Farhat Pineda MD [address] [place] [address] PCP - General Family Practice 01/13/11 Pharmaceutical Engineer Relationship Specialty Start Date End Date Farhat Pineda MD [address] [place] [id number] PCP - General Family Practice 01/13/11 Pharmaceutical Engineer Relationship Specialty Start Date End Date Farhat Pineda MD [address] [id number] PCP - General Family Practice 01/13/11 Pharmaceutical Engineer Relationship Specialty Start Date End Date Farhat Pineda MD [address] [place] [address] PCP - General Family Practice 01/13/11 Pharmaceutical Engineer Relationship Specialty Start Date End Date Farhat Pineda MD [address] [facility] [address] PCP - General Family Practice 01/13/11 Pharmaceutical Engineer Relationship Specialty Start Date End Date Farhat Pineda MD [address] [facility] [place], [facility] PCP - General Family Practice 01/13/11 Pharmaceutical Engineer Relationship Specialty Start Date End Date Farhat Pineda MD [address] [facility] [place], [facility] PCP - General Family Practice 01/13/11 Pharmaceutical Engineer Relationship Specialty Start Date End Date Farhat Pineda MD [address] [facility] [place], [facility] PCP - General Family Practice 01/13/11 Pharmaceutical Engineer Relationship Specialty Start Date End Date Farhat Pineda MD [address] [facility], [facility] PCP - General Family Practice 01/13/11 Pharmaceutical Engineer Relationship Specialty Start Date End Date Farhat Pineda MD [address] [facility] [place], [facility] PCP - General Family Medicine 01/13/11 Pharmaceutical Engineer Relationship Specialty Start Date End Date Farhat Pineda MD [address] [place] [address] PCP - General Family Medicine 01/13/11 Pharmaceutical Engineer Relationship Specialty Start Date End Date Farhat Pineda MD [address] [place] [address] PCP - General Family Medicine 01/13/11 Pharmaceutical Engineer Relationship Specialty Start Date End Date Farhat Pineda MD [address] [place] [address] PCP - General Family Medicine 01/13/11 Pharmaceutical Engineer Relationship Specialty Start Date End Date Farhat Pineda MD [address] [facility] [address] PCP - General Family Medicine 01/13/11 Farhat Pineda MD [address] [place] [address] Referring Family Medicine 01/08/22 Pharmaceutical Engineer Relationship Specialty Start Date End Date Farhat Pineda MD [address] [facility] [address] PCP - General Family Medicine 01/13/11 Farhat Pineda MD [address] [place] [address] Referring Family Medicine 01/08/22 Pharmaceutical Engineer Relationship Specialty Start Date End Date Farhat Pineda MD [address] [facility] [address] PCP - General Family Medicine 01/13/11 Farhat Pineda MD [address] [place] [address] Referring Family Medicine 01/08/22 Pharmaceutical Engineer Relationship Specialty Start Date End Date Farhat Pineda MD [address] [place] [address] PCP - General Family Medicine 01/13/11 Farhat Pineda MD [address] [place] [address] Referring Family Medicine 01/08/22 Pharmaceutical Engineer Relationship Specialty Start Date End Date Farhat Pineda MD [address] [place] [address] PCP - General Family Medicine 01/13/11 Farhat Pineda MD [address] [place] [address] Referring Family Medicine 01/08/22 Pharmaceutical Engineer Relationship Specialty Start Date End Date Farhat Pineda MD [address] [place] [address] PCP - General Family Medicine 01/13/11 Farhat Pineda MD [address] [place] [address] Referring Family Medicine 01/08/22 Pharmaceutical Engineer Relationship Specialty Start Date End Date Farhat Pineda MD PCP - General Family Medicine 01/13/11 Farhat Pineda MD Referring Family Medicine 01/08/22 Pharmaceutical Engineer Relationship Specialty Start Date End Date Farhat Pineda MD PCP - General Family Medicine 01/13/11 Farhat Pineda MD Referring Family Medicine 01/08/22 Pharmaceutical Engineer Relationship Specialty Start Date End Date Farhat Pineda MD PCP - General Family Medicine 01/13/11 Farhat Pineda MD Referring Family Medicine 01/08/22 Pharmaceutical Engineer Relationship Specialty Start Date End Date Farhat Pineda MD PCP - General Family Medicine 01/13/11 Farhat Pineda MD Referring Family Medicine 01/08/22 Pharmaceutical Engineer Relationship Specialty Start Date End Date Farhat Pineda MD PCP - General Family Medicine 01/13/11 Farhat Pineda MD Referring Family Medicine 01/08/22 Pharmaceutical Engineer Relationship Specialty Start Date End Date Farhat Pineda MD PCP - General Family Medicine 01/13/11 Farhat Pineda MD Referring Family Medicine 01/08/22 Pharmaceutical Engineer Relationship Specialty Start Date End Date Farhat Pineda MD PCP - General Family Medicine 01/13/11 Farhat Pineda MD Referring Family Medicine 01/08/22 Pharmaceutical Engineer Relationship Specialty Start Date End Date Farhat Pineda MD PCP - General Family Medicine 01/13/11 Farhat Pineda MD Referring Family Medicine 01/08/22 Pharmaceutical Engineer Relationship Specialty Start Date End Date Farhat Pineda MD PCP - General Family Medicine 01/13/11 Farhat Pineda MD Referring Family Medicine 01/08/22 Pharmaceutical Engineer Relationship Specialty Start Date End Date Farhat Pineda MD PCP - General Family Medicine 01/13/11 Farhat Pineda MD Referring Family Medicine 01/08/22 Pharmaceutical Engineer Relationship Specialty Start Date End Date Farhat Pineda MD PCP - General Family Medicine 01/13/11 Farhat Pineda MD Referring Family Medicine 01/08/22 Pharmaceutical Engineer Relationship Specialty Start Date End Date Farhat Pineda MD PCP - General Family Medicine 01/13/11 Pharmaceutical Engineer Relationship Specialty Start Date End Date Farhat Pineda MD PCP - General Family Medicine 01/13/11 Farhat Pineda MD Referring Family Medicine 01/08/22 Pharmaceutical Engineer Relationship Specialty Start Date End Date Farhat Pineda MD PCP - General Family Medicine 01/13/11 Farhat Pineda MD Referring Family Medicine 01/08/22 Pharmaceutical Engineer Relationship Specialty Start Date End Date Farhat Pineda MD PCP - General Family Medicine 01/13/11 Farhat Pineda MD Referring Family Medicine 01/08/22 Pharmaceutical Engineer Relationship Specialty Start Date End Date Farhat Pineda MD PCP - General Family Medicine 01/13/11 Farhat Pineda MD Referring Family Medicine 01/08/22 Pharmaceutical Engineer Relationship Specialty Start Date End Date Farhat Pineda MD PCP - General Family Medicine 01/13/11 Farhat Pineda MD Referring Family Medicine 01/08/22 Pharmaceutical Engineer Relationship Specialty Start Date End Date Farhat Pineda MD PCP - General Family Medicine 01/13/11 Farhat Pineda MD Referring Family Medicine 01/08/22 Pharmaceutical Engineer Relationship Specialty Start Date End Date Farhat Pineda MD PCP - General Family Medicine 01/13/11 Farhat Pineda MD Referring Family Medicine 01/08/22 Pharmaceutical Engineer Relationship Specialty Start Date End Date Farhat Pineda MD PCP - General Family Medicine 01/13/11 Farhat Pineda MD Referring Family Medicine 01/08/22 Pharmaceutical Engineer Relationship Specialty Start Date End Date Farhat Pineda MD PCP - General Family Medicine 01/13/11 Farhat Pineda MD Referring Family Medicine 01/08/22 Pharmaceutical Engineer Relationship Specialty Start Date End Date Farhat Pineda MD PCP - General Family Medicine 01/13/11 Farhat Pineda MD Referring Family Medicine 01/08/22 Pharmaceutical Engineer Relationship Specialty Start Date End Date Farhat Pineda MD PCP - General Family Medicine 01/13/11 Farhat Pineda MD Referring Family Medicine 01/08/22 Pharmaceutical Engineer Relationship Specialty Start Date End Date Farhat Pineda MD PCP - General Family Medicine 01/13/11 Farhat Pineda MD Referring Family Medicine 01/08/22 Pharmaceutical Engineer Relationship Specialty Start Date End Date Farhat Pineda MD PCP - General Family Medicine 01/13/11 Farhat Pineda MD Referring Family Medicine 01/08/22 Pharmaceutical Engineer Relationship Specialty Start Date End Date Farhat Pineda MD PCP - General Family Medicine 01/13/11 Farhat Pineda MD Referring Family Medicine 01/08/22 Pharmaceutical Engineer Relationship Specialty Start Date End Date Farhat Pineda MD PCP - General Family Medicine 01/13/11 Farhat Pineda MD Referring Family Medicine 01/08/22 Pharmaceutical Engineer Relationship Specialty Start Date End Date Farhat Pineda MD PCP - General Family Medicine 01/13/11 Farhat Pineda MD Referring Family Medicine 01/08/22 Pharmaceutical Engineer Relationship Specialty Start Date End Date Farhat Pineda MD PCP - General Family Medicine 01/13/11 Farhat Pineda MD Referring Family Medicine 01/08/22 Pharmaceutical Engineer Relationship Specialty Start Date End Date Farhat Pineda MD PCP - General Family Medicine 01/13/11 Pharmaceutical Engineer Relationship Specialty Start Date End Date Farhat Pineda MD PCP - General Family Medicine 01/13/11 Farhat Pineda MD Referring Family Medicine 01/08/22 Pharmaceutical Engineer Relationship Specialty Start Date End Date Farhat Pineda MD PCP - General Family Medicine 01/13/11 Pharmaceutical Engineer Relationship Specialty Start Date End Date Farhat Pineda MD PCP - General Family Medicine 01/13/11 Farhat Pineda MD Referring Family Medicine 01/08/22 Pharmaceutical Engineer Relationship Specialty Start Date End Date Farhat Pineda MD PCP - General Family Medicine 01/13/11 Farhat Pineda MD Referring Family Medicine 01/08/22 Pharmaceutical Engineer Relationship Specialty Start Date End Date Farhat Pineda MD PCP - General Family Medicine 01/13/11 Farhat Pineda MD Referring Family Medicine 01/08/22 Team Status: Inactive Member Role Status Dates Farhat Pineda MD Primary Care Provider Active Bipin Roth Jr, MD Emergency Provider Active Pharmaceutical Engineer Relationship Specialty Start Date End Date Farhat Pineda MD PCP - General Family Medicine 01/13/11 Farhat Pineda MD Referring Family Medicine 01/08/22 Team Status: Inactive Member Role Status Dates Candiec Sifuentes DO Emergency Provider Active Farhat Pineda MD Primary Care Provider Active Pharmaceutical Engineer Relationship Specialty Start Date End Date Farhat Pineda MD PCP - General Family Medicine 01/13/11 Farhat Pineda MD Referring Family Medicine 01/08/22 Pharmaceutical Engineer Relationship Specialty Start Date End Date Farhat Pineda MD PCP - General Family Medicine 01/13/11 Farhat Pineda MD Referring Family Medicine 01/08/22 Pharmaceutical Engineer Relationship Specialty Start Date End Date Farhat Pineda MD PCP - General Family Medicine 01/13/11 Farhat Pineda MD Referring Family Medicine 01/08/22 Pharmaceutical Engineer Relationship Specialty Start Date End Date Farhat Pineda MD PCP - General Family Medicine 01/13/11 Farhat Pineda MD Referring Family Medicine 01/08/22 Pharmaceutical Engineer Relationship Specialty Start Date End Date Farhat Pineda MD PCP - General Family Medicine 01/13/11 Farhat Pineda MD Referring Family Medicine 01/08/22 Pharmaceutical Engineer Relationship Specialty Start Date End Date Farhat Pineda MD PCP - General Family Medicine 01/13/11 Farhat Pineda MD Referring Family Medicine 01/08/22 Pharmaceutical Engineer Relationship Specialty Start Date End Date Farhat Pineda MD PCP - General Family Medicine 01/13/11 Farhat Pineda MD Referring Family Medicine 01/08/22 Pharmaceutical Engineer Relationship Specialty Start Date End Date Farhat Pineda MD PCP - General Family Medicine 01/13/11 Farhat Pineda MD Referring Family Medicine 01/08/22 Pharmaceutical Engineer Relationship Specialty Start Date End Date Farhat Pineda MD PCP - General Family Medicine 01/13/11 Farhat Pineda MD Referring Family Medicine 01/08/22 Pharmaceutical Engineer Relationship Specialty Start Date End Date Farhat Pineda MD PCP - [facility] Medicine 01/13/11 Farhat Pineda MD Referring Family Medicine 01/08/22 Pharmaceutical Engineer Relationship Specialty Start Date End Date Farhat [...] BE BASED ON THE PRIMARY CLINICAL RECORDS. [employer] [facility]. provides no warranty or guarantee of the accuracy or completeness of information in this document.
== END 2023-06-15 20:01 | disposition home or self-care (01) ==
LOC: SLEEP 06-16 07:23
PROVIDERS: PCP Family Medicine; Visit Provider Family Medicine
DX: G47.33 Obstructive sleep apnea (adult) (pediatric) (principal)
CPT/HCPCS: 95811

== ENCOUNTER 2023-06-16 07:02 | Outpatient (OUT) | payer OTHER, SELFPAY ==
--- OUTSIDE RECORDS SUMMARY | 2023-06-16 07:08 | XMS_ITS | CCD ---
Author Organization [facility] Care Team Providers Care Dye Jig Operator Name Role Phone JANE DIAZ A Attending Unavailable JANE DIAZ Admitting Unavailable FARHAT PINEDA Referring Unavailable FARHAT PINEDA Primary Care Unavailable Farhat Pineda MD Primary Care Provider Farhat Pineda MD Primary Care Provider Farhat Pineda MD Primary Care Provider Farhat iPneda Primary Care Physician Farhat Pineda MD Primary Care Provider Farhat Pineda MD Unavailable Farhat Pineda MD Primary Care Provider Farhat Pineda MD Unavailable LIZZIE LEAVITT Referring Unavailable BUD CA Attending Unavaila FARHAT Hendrix Primary Care Unavailable EDWIN .DR LÓPEZ Primary Care Unavailable HOY ., DR LÓPEZ Admitting Unavailable HOY ., DR LÓPEZ Attending Unavailable HOY ., DR LÓPEZ Consulting Unavailable HOY ., DR LÓPEZ Primary Care Unavailable HOY ., DR LÓPEZ Admitting Unavailable HOY ., DR LÓPEZ Attending Unavailable HOY ., DR LÓPEZ Consulting Unavailable HOY ., DR LÓPEZ Attending Unavailable HOY ., DR LÓPEZ Primary Care Unavailable HOY ., DR LÓPEZ Admitting Unavailable HOY ., DR LÓPEZ Consulting Unavailable HOY ., DR LÓPEZ Attending Unavailable HOY ., DR LÓPEZ Primary Care Unavailable HOY ., DR LÓPEZ Admitting Unavailable HOY ., DR LÓPEZ Consulting Unavailable GONZALO LYONS Admitting Unavailable GONZALO LYONS Attending Unavailable GONZALO LYONS Consulting Unavailable EDWIN ., DR LÓPEZ Primary Care Unavailable HOY ., DR LÓPEZ Attending Unavailable HOY ., DR LÓPEZ Admitting Unavailable HOY ., DR LPÓEZ Consulting Unavailable HOY ., DR LÓPEZ Primary Care Unavailable MUNA, DR JOELLE Pelayo Consulting Unavailable HOY ., DR LÓEPZ Attending Unavailable HOY ., DR LÓPEZ Admitting Unavailable HOY ., DR LÓPEZ Consulting Unavailable HOY ., DR LÓPEZ Primary Care Unavailable DAYANA ., ARIADNE Admitting Unavailable HOY ., DR LÓPEZ Primary Care Unavailable DAYANA ., ARIADNE Attending Unavailable DAYANA ., ARIADNE Consulting Unavailable SOLO OG Admitting Unavailable FLORIAN ., MR WHATLEY Consulting Unavailable SOLO OG Attending Unavailable HOY ., DR LÓPEZ Primary Care Unavailable SOLO OG Consulting Unavailable HOY ., DR LÓPEZ Primary Care Unavailable HOY ., DR LÓPEZ Attending Unavailable HOY ., DR LÓPEZ Admitting Unavailable HOY ., DR LÓPEZ Consulting Unavailable HOY ., DR LÓPEZ Attending Unavailable HOY ., DR LÓPEZ Admitting Unavailable HOY ., DR LÓPEZ Consulting Unavailable HOY ., DR LÓPEZ Primary Care Unavailable DEEJAY GRAHAM Consulting Unavailable HOY ., DR LÓPEZ Attending Unavailable HOY ., DR LÓPEZ Primary Care Unavailable HOY ., DR LÓPEZ Admdoris Unavailable HOY ., DR LÓPEZ Consulting Unavailable HOY ., DR LÓPEZ Primary Care Unavailable HOY ., DR LÓPEZ Admitting Unavailable HOY ., DR LÓPEZ Attending Unavailable HOY ., DR LÓPEZ Consulting Unavailable FACUNDO DE LUNA Consulting Unavailable HOY, FARHAT M Primary Care Unavailable ELEANOR KENNY Attending Unavailable ELEANOR KENNY Admitting Unavailable MD Farhat Pineda Primary Care Provider [phone] MD Bipin Roth Jr Emergency Provider DO Candice Sifuentes Emergency Provider SILVANA MASON Attending UnavailSILVANA Butt Admitting Unavailabl Ladarius Smith Attending Unavailable SILVANA MASON Attending UnavailELEANOR Barrientos Referring Unavailable HOY, FARHAT M Primary Care Unavailable HOY, FARHAT M Primary Care Unavailable LIZZIE LEAVITT Referring Unavailable HOY, FARHAT M Primary Care Unavailable ADILENE ORDOÑEZ Referring Unavailable HOY, FARHAT M Primary Care Unavailable ADILENE ORDOÑEZ Referring Unavailable MD Edwin Farhat M Primary Care Provider [phone] MD Prince Tucker Attending Provider [phone] SILVANA Little Emergency Provider [phone] MD Prince Tucker Admit Provider LUIS F BARRAZA Attending Unavailable HOY, FARHAT M Primary Care Unavailable LUIS F BARRAZA Referring Unavailable BIPIN NINA Attending Unavailable HOY, FARHAT M Primary Care Unavailable MARICHUY SUAREZ Attending Unavailable HOY, FARHAT M Primary Care Unavailable BIPIN NINA Referring Unavailable HOY, FARHAT M Primary Care Unavailable CASS BANKS Attending Unavailable LEAVITT, LIZZIE RONALD Referring Unavailable HOY, FARHAT M Primary Care Unavailable DULCE SERRANO Attending Unavailable HOY, FARHAT M Primary Care Unavailable BIPIN NINA Attending Unavailable HOY, FARHAT M Primary Care Unavailable ELEANOR KENNY Referring Unavailable HOY, FARHAT M Primary Care Unavailable CARL NICOLE Referring Unavailable HOY, FARHAT M Primary Care Unavailable HOY, FARHAT M Primary Care Unavailable HILARIO LEAVITT Referring Unavailable HOY, FARHAT M Primary Care Unavailable OPAL OG Attending Unavailable HOY, FARHAT M Primary Care Unavailable LEAVITT, LIZZIE RONALD Referring Unavailable LEAVITT, LIZZIE RONALD Attending Unavailable HOY, FARHAT M Primary Care Unavailable HOY, FARHAT M Primary Care Unavailable ELEANOR KENNY Attending Unavailable LEAVITT, LIZZIE RONALD Referring Unavailable HOY, FARHAT M Primary Care Unavailable DARIEL LE Attending Unavailable HOY, FARHAT M Primary Care Unavailable HOY, FARHAT M Primary Care Unavailable THADDEUS DIGGS Referring Unavailabl e HOY, FARHAT M Primary Care Unavailable LEAVITT, LIZZIE RONALD Referring Unavailable HOY, FARHAT M Primary Care Unavailable ELEANOR KENNY Attending Unavailable HOY, FARHAT M Primary Care Unavailable BIPIN NINA Referring Unavailable BIPIN NINA Attending Unavailable HOY, FARHAT M Primary Care Unavailable ADILENE ORDOÑEZ Attending Unavailable HOY, FARHAT M Primary Care Unavailable ELEANOR KENNY Attending Unavailable HOY, FARHAT M Primary Care Unavailable HOY, FARHAT M Primary Care Unavailable LUIS F BARRAZA Attending Unavailable HOY, FARHAT M Primary Care Unavailable BRETHADDEUS MACKAY Attending Unavailabl e HOY, FARHAT M Primary Care Unavailable HOY, FARHAT M Primary Care Unavailable HILARIO LEAVITT Referring Unavailable ORDOÑEZADILENE CANO Referring Unavailable HOY, FARHAT M Primary Care Unavailable HOY, FARHAT M Primary Care Unavailable HOY, FARHAT M Referring Unavailable HILARIO LEAVITT D Attending Unavailable HOY, FARHAT M Primary Care Unavailable ELEANOR KENNY Referring Unavailable THADDEUS DIGGS Attending Unavailabl e HOY, FARHAT M Primary Care Unavailable JANENE HARRISON Attending Unavailable ELEANOR KENNY Referring Unavailable HOY, FARHAT M Primary Care Unavailable HOY, FARHAT M Primary Care Unavailable ELEANOR KENNY Attending Unavailable ADILENE ORDOÑEZ Referring Unavailable HOY, FARHAT M Primary Care Unavailable DAVIN DOWLING Attending Unavailable ORDOÑEZ, ADILENE Referring Unavailable HOY, FARHAT M Primary Care Unavailable Tupa, Candice M Admitting Unavailable Tupa, Candice M Attending Unavailable Hoy, Farhat M Primary Care Unavailable Bipin Roth Jr Attending Unavailable Bipin Roth Jr Admitting Unavailable Hoy, Farhat M Primary Care Unavailable Garrett, Prince Admitting Unavailab le Prince Tucker Attending Unavailab le Hoy, Farhat M Primary Care Unavailable Hoy, Farhat M Primary Care Unavailable Garrett, Prince Admitting Unavailab le Garrett, Prince Attending Unavailab le Allergies Allergy Classification Reported Allergen(s) Allergy Type Date of Onset Reaction(s) Facility (6 sources) NSAIDs; Translations: [NSAIDS (NON-STEROIDAL ANTI-INFLAMMATO RY DRUG)] Drug allergy (disorder) 03-05-19 17 [facility]ository (20 sources) Ibuprofen; Translations: [ibuprofen] Drug Allergy 11-06-19 16 Other: See Comments, Gastrointestinal hemorrhage (disorder) [facility] (20 sources) Iodine; Translations: [IODINE] Drug Allergy 11-05-19 21 Other: See Comments [facility] (20 sources) meloxicam; Translations: [MELOXICAM] Drug Allergy 08-06-19 17 Intolerance [facility] (9 sources) Non-steroidal anti-inflammato ry agent; Translations: [NSAIDs] Drug Allergy 03-05-19 17 Unknown [facility] (20 sources) predniSONE; Translations: [PREDNISONE] Drug Allergy 08-06-19 17 Contraindication-Me dical Surgical [facility] (20 sources) Scopolamine; Translations: [scopolamine] Drug Allergy 12-02-19 Mental Status Change [facility] (20 sources) Non-steroidal anti-inflammato ry agent Drug Allergy 03-05-19 17 Unknown [facility] (6 sources) Contrast media; Translations: [Contrast Dye] Drug allergy renal failure [facility] (6 sources) metFORMIN; Translations: [metformin] Drug Allergy Upset stomach (finding) [facility] (1 source) metFORMIN Drug Allergy [facility] Repository (1 source) Scopolamine Drug Allergy [facility] Rep[facility] (1 source) Ibuprofen; Translations: [Motrin] Drug Allergy [facility] Repository (1 source) NSAIDs; Translations: [NSAIDs] Propensity to adverse reactions (disorder) [facility] Repository (1 source) Scopalamine Hydrobromide Trihydrate; Translations: [Scopalamine Hydrobromide Trihydrate] Propensity to adverse reactions (disorder) [facility] Repository (1 source) Ibuprofen Drug Allergy 05-24-19 [facility] Repository Medications Current Medications Medication Drug Class(es) Dates Sig (Normalized) Sig (Original) [id number] 200 actuat albuterol 0.09 mg/actuat metered dose inhaler (1 source) beta2-Adrenergic Agonist Start: 05-24-2023 take 1 puff(s) by inhalation every four hours Albuterol Sulfate Active 2 PUFF INHALATION Q4H May 24, 2023 12:00am ARIPiprazole 2 mg oral tablet (3 sources) Atypical Antipsychotic Start: 01-09-2023 take 5 mg by mouth once daily at bedtime Aripiprazole Active 5 MG PO Daily at bedtime January 09, 2023 1:00am Start: 01-09-2023 take 2 mg by mouth o nce daily at bedtime Aripiprazole Active 2 MG PO Daily at bedtime January 09, 2023 12:00am baclofen 10 mg oral tablet (2 sources) gamma-Aminobutyric Acid-ergic Agonist Start: 03-26-2023 End: 04-02-2023 take 1 tablet by mouth three times daily baclofen 10 mg Tab 10 mg = 1 tab(s), Oral, TID, X 7 day(s), # 21 tab(s), Refills(s) 0, Pharmacy: [facility] #[id number], 157.7, cm, 01/14/23 10:54:00 EST, Height/Length Dosing, 100.9, kg, 01/14/23 10:54:00 EST, Weight Dosing Start Date: 03/26/23 Stop Date: 04/02/23 Status: Ordered brompheniramine maleate 0.4 mg/ml / dextromethorphan hydrobromide 2 mg/ml / pseudoephedrine hydrochloride 6 mg/ml oral solution (2 sources) alpha-Adrenergic Agonist, Uncompetitive B-yrwgxf-N-aspartate Receptor Antagonist, Sigma-1 Agonist Start: 03-26-2023 End: 04-02-2023 take 5 mL by mouth four times daily for cough and congestion Bromfed DM oral syrup 5 mL, Oral, QID for cough and congestion for 7 day(s), 140 mL, Refill(s) 0, [facility] #[id number], 157.7, cm, 01/14/23 10:54:00 EST, Height/Length Dosing, 100.9, kg, 01/14/23 10:54:00 EST, Weight Dosing Start Date: 03/26/23 Stop Date: 04/02/23 Status: Ordered CPAP/BIPAP/OTHER (20 sources) Start: 11-24-2022 End: 04-10-2050 CPAP/BIPAP/OTHER Indications: TALIA (obstructive sleep apnea) Type .CPAPSettings into a note to see current settings/supplie s/DME information. 1 Each 0 11/24/2022 04/10/2050 Active Start: 12-17-2021 End: 05-03-2049 CPAP/BIPAP/OTHER Type .CPAPS ettings into a note to see current settings/supplies/DME information. 1 Each 0 12/17/2021 05/03/2049 Active Start: 12-18-2020 End: 09-17-2021 CPAP/BIPAP/OTHER Indications : TALIA (obstructive sleep apnea) Type .CPAPSettings into a note to see current settings/supplies/DME information. 1 Each 0 12/18/2020 09/17/2021 Discontinued Start: 12-18-2020 End: 05-04-2048 CPAP/BIPAP/OTHER Indications : TALIA (obstructive sleep apnea) Type .CPAPSettings into a note to see current settings/supplies/DME information. 1 Each 0 12/18/2020 05/04/2048 Active Start: 12-11-2020 End: 09-17-2021 CPAP/BIPAP/OTHER Indications : TALIA (obstructive sleep apnea) Type .CPAPSettings into a note to see current settings/supplies/DME information. 1 Each 0 12/11/2020 09/17/2021 Discontinued Start: 12-11-2020 End: 04-27-2048 CPAP/BIPAP/OTHER Indications : TALIA (obstructive sleep apnea) Type .CPAPSettings into a note to see current settings/supplies/DME information. 1 Each 0 12/11/2020 04/27/2048 Active Comment on above: Type .CPAPSettings i nto a note to see current settings/supplies/DME information. diphenhydrAMINE hydrochloride 50 mg oral tablet (1 source) Histamine-1 Receptor Antagonist Start : 05-23 take 1 tablet by mouth once daily at bedtime Diphenhydramine Hcl (Benadryl Allergy) 50 mg tablet Active 50 MG PO Daily at bedtime May 24, 2023 12:00am Dulaglutide (Trulicity) 3 mg/0.5 mL pen injector (1 source) Start : 05-23 Dulaglutide (Trulicity) 3 mg/0.5 mL pen injector Active 3 MG SUBCUT .weekly May 24, 2023 12:00am ergocalciferol 1.25 mg oral capsule (20 sources) Provitamin D2 Compound Start : 12-23 End: 12-22 take 1 capsule by mouth three times weekly ergocalciferol 50,000 unit capsule (VITAMIN D2, DRISDOL) Indications: Vitamin D insufficiency Take 1 capsule by mouth three times a week. 36 capsule 3 12/23/2022 12/23/2023 Active Start: 10-13-2022 End: 10-13-2023 take 1 capsule by mouth two times weekly ergocalciferol 50,000 unit capsule (VITAMIN D2, DRISDOL) Indications: Vitamin D insufficiency Take 1 capsule by mouth two times a week. 24 capsule 3 10/13/2022 12/23/2022 Discontinued Start: 03-18-2021 take 1 capsule by mo uth three times weekly ergocalciferol 50,000 unit capsule (VITAMIN D2, DRISDOL) Indications: Vitamin D insufficiency Take 1 capsule by mouth three times a week. 36 capsule 3 03/18/2021 Active Comment on above: Take 1 capsule by mo uth three times a week. Take 1 capsule by mo uth two times a week. glucagon 3 mg nasal powder (20 sources) Antihypoglycemic Agent Start: 05-24-2023 Glucagon (Baqsimi) 3 mg/actuation spray,non-aerosol Active 3 MG INTRANASAL EVERY 15 MINUTES May 24, 2023 12:00am Start: 07-01-2022 glucagon (BAQS IMI) 3 mg/actuation nasal spray Indications: Type 2 diabetes mellitus with hypoglycemia without coma, without long-term current use of insulin (HCC) Use 1 [place] in the nose as needed for low blood sugar. May repeat after 15 minutes using a new device if there is no response. 2 Each 2 07/01/2022 Active Comment on above: Use 1 [place] in the n ose as needed for low blood sugar. May repeat after 15 minutes using a new device if there is no response. iv contrast (will be provided with radiology test) (6 sources) Start: 04-14-19 End: 04-15-19 iv contrast (will be provided with radiology test) CT ABD/PEL -Inject, intravenously, once for 1 dose.No IV access, insert saline lock prior to the beginning of sedation, infusion, injection of imaging exam. Discontinue saline lock post exam. If Pt. has a central line or IVAD, may access for administration according to line specific nursing protocol. Once exam is complete flush line and de-access according to line specific nursing protocol in the CT contrast administration guidelines link. 1 Each 0 04/14/2023 04/15/2023 Active Comment on above: CT ABD/PEL -Inject, intravenously, once for 1 dose.No IV access, insert saline lock prior to the beginning of sedation, infusion, injection of imaging exam. Discontinue saline lock post exam. If Pt. has a central line or IVAD, may access for administration according to line specific nursing protocol. Once exam is complete flush line and de-access according to line specific nursing protocol in the CT contrast administration guidelines link. 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 90 tablet 3 10/16/2022 12/23/2022 Discontinued Comment on above: Take 1 tablet by nanda th once daily. LORazepam 1 mg oral tablet (4 sources) Benzodiazepine Start: take 1 tablet by mouth three times daily Lorazepam (Ativan) 1 mg tablet Active 1 MG PO Three times daily May 24, 2023 12:00am Start: 01-09-2023 End: 05-24-2023 take 1 tablet by mouth twice daily Lorazepam (Ativan) 1 mg tablet Discontinued 1 MG PO Twice daily 27 11January 09, 2023 1:00am May 24, 2023 11:23pm mirtazapine 7.5 mg oral tablet (20 sources) Start: 05-24-2023 take 7.5 mg by mouth at bedtime Mirtazapine Active 7.5 MG PO Bedtime May 24, 2023 12:00am take 1 tablet by nanda th once daily at bedtime Mirtazapine (REMERON) 7.5 mg tablet Take 7.5 mg by mouth daily at bedtime. 0 Active Comment on above: Take 7.5 mg by mouth daily at bedtime. pantoprazole 40 mg delayed release oral tablet (20 sources) Proton Pump Inhibitor Start: take 40 mg by mouth once daily Pantoprazole Active 40 MG PO Daily May 24, 2023 12:00am Start: 09-24-2017 pantoprazole D R (PROTONIX) 40 mg tablet Take 1 tablet by mouth as needed. 0 09/24/2017 Active Comment on above: Take 1 tablet by nanda th as needed. phentermine hydrochloride 37.5 mg oral tablet (5 sources) Sympathomimetic Amine Anorectic Start: 05-01-19 phentermine 37.5 mg Tab 18.75 mg = 0.5 tab(s), Oral, BID, Refills(s) 0 Start Date: 04/30/20 Status: Ordered polymyxin b [id number] unt/ml / trimethoprim 1 mg/ml ophthalmic solution (1 source) Dihydrofolate Reductase Inhibitor Antibacterial, Polymyxin-class Antibacterial Start: 11-30-19 End: 12-07-19 Polytrim 10 mL Soln-Opth 1 drop(s), OPTH, q3hr for 7 day(s), 10 mL, Refill(s) 0, [facility] #[id number], 157, cm, 11/29/21 9:55:00 EDT, Height/Length Dosing, 95.5, kg, 11/29/21 9:55:00 EDT, Weight Dosing Start Date: 11/29/21 Stop Date: 12/06/21 Status: Ordered promethazine hydrochloride 25 mg oral tablet (20 sources) Phenothiazine Start: 01-10-20 take 1 mg by mouth three times daily Promethazine Active 1 MG PO Three times daily January 09, 2023 1:00am Start: 10-22-2020 take 1 tablet by nanda th every six hours as needed promethazine (PHENERGAN) 25 mg tablet Take 25 mg by mouth four times daily as needed. 0 10/22/2020 Active Start: 06-09-2017 take 1 tablet by nanda th twice daily promethazine 25 mg Tab 25 mg = 1 tab(s), Oral, BID Start Date: 06/09/17 Status: Ordered Comment on above: Take 25 mg by mouth four times daily as needed. propranolol hydrochloride 10 mg oral tablet (1 source) beta-Adrenergic Justine Start: 4 take 10 mg by mouth four times daily Propranolol Active 10 MG PO Four times daily May 24, 2023 12:00am rOPINIRole 1 mg oral tablet (20 sources) Nonergot Dopamine Agonist Start: 4 take 1 mg by mouth at bedtime Ropinirole Active 1 MG PO Bedtime May 24, 2023 12:00am take 1 tablet by nanda th once daily at bedtime rOPINIRole (REQUIP) 0.5 mg tablet Take 0 .5 mg by mouth daily at bedtime. 0 Active Comment on above: Take 0.5 mg by mouth daily at bedtime. zolpidem tartrate 10 mg oral tablet (1 source) gamma-Aminobutyric Acid-ergic Agonist Start: 05-24-2023 take 10 mg by mouth at bedtime Zolpidem Active 10 MG PO Bedtime May 24, 2023 12:00am Completed/Discontinued Medications Medication Drug Class(es) Dates Sig (Normalized) Sig (Original) acarbose 50 mg oral tablet (20 sources) alpha-Glucosidase Inhibitor Start: 07-15-2022 End: 10-13-2022 take 1 tablet by mouth three times daily acarbose (PRECOSE) 50 mg tablet Indications: Hx of gastric bypass , Type 2 diabetes mellitus with hypoglycemia without coma, without long-term current use of insulin (HCC) Take 1 tablet by mouth three times daily. 90 tablet 2 07/15/2022 Active Start: 07-08-2022 End: 10-06-2022 take 1 tablet by mouth three times daily acarbose (PRECOSE) 25 mg tablet Indications: Hx of gastric bypass , Type 2 diabetes mellitus with hypoglycemia without coma, without long-term current use of insulin (HCC) Take 1 tablet by mouth three times daily. 90 tablet 2 07/08/2022 10/06/2022 Active Comment on above: Take 1 tablet by nanda th three times daily. albuterol HFA 90 mcg/inh MDI (5 sources) Start: 05-01-19 take 1 dose by inhalation four times daily albuterol HFA 90 mcg/inh MDI 2 puff(s), Inhalation, QID, 1 EA, Refill(s) 0, [facility], 160, cm, 04/30/20 17:21:00 EDT, Height/Length Dosing, 91, kg, 04/30/20 17:21:00 EDT, Weight Dosing Start Date: 04/30/20 Status: Ordered ALPRAZolam 0.25 mg oral tablet (20 sources) Benzodiazepine Start: 09-11-19 ALPRAZolam (XANAX) 0.25 mg tablet Take 0.5 tablets by mouth as needed. 0 09/10/2021 Active Start: 06-29-2017 take 1 tablet by nanda th three times daily as needed for anxiety alprazolam 0.25 mg Tab 0.25 mg = 1 tab(s), Oral, TID, PRN as needed for anxiety, Refills(s) 0 Start Date: 06/29/17 Status: Ordered Comment on above: Take 0.5 tablets by mouth as needed. benoxinate hydrochloride 4 mg/ml / fluorescein sodium 2.5 mg/ml ophthalmic solution (1 source) Diagnostic Dye Start: 3 End: 3 fluorescein-benoxinat e 0.25-0.4 % 1 Drop (FLURESS) BIPAP (20 sources) Start: 2 BIPAP Lifetime supplies for BiPAP 12/8 cm H20 including mask, heated tubing, humidity, filters. Dx: G47.33 0 03/20/2021 Active Comment on above: Lifetime supplies fo r BiPAP 12/8 cm H20 including mask, heated tubing, humidity, filters. Dx: G47.33 Blood-Glucose Meter (FREESTYLE LITE METER) monitoring kit (20 sources) Start: 3 Blood-Glucose Meter (FREESTYLE LITE METER) monitoring kit Indications: Type 2 diabetes mellitus with hyperglycemia, without long-term current use of insulin (HCC) Use as instructed. 1 Each 0 02/05/2023 Active Comment on above: Use as instructed. Blood-Glucose Sensor (FREESTYLE NBA 3 SENSOR) vinny (20 sources) Start: 3 Blood-Glucose Sensor (FREESTYLE NBA 3 SENSOR) vinny Indications: Hx of gastric bypass , Type 2 diabetes mellitus with hypoglycemia without coma, without long-term current use of insulin (HCC) Use to check glucose 4 times or more daily. Change sensor every 14 days. 2 Each 06/23/2022 Active Comment on above: Use to check glucose 4 times or more daily. Change sensor every 14 days. busPIRone hydrochloride 10 mg oral tablet (20 sources) Start: 3 End: 4 take 10 mg by mouth twice daily Buspirone Discontinued 10 MG PO Twice daily January 09, 2023 1:00am May 24, 2023 11:18pm take 1 tablet by mouth three larry es daily busPIRone (BUSPAR) 7.5 mg tablet Take 7.5 mg by mouth three times a day. 0 Active Comment on above: Take 7.5 mg by mouth three times a day. cholecalciferol 0.125 mg oral tablet (20 sources) Vitamin D Start: 2021 take 2 tablets by mouth once in the morning cholecalciferol (VITAMIN D-3) 5,000 unit tab 2 tabs po q am for 90 days 60 tablet 2 01/23/2022 Active Comment on above: 2 tabs po q am for 9 0 days diclofenac sodium 0.01 mg/mg topical gel (20 sources) Nonsteroidal Anti-inflammatory Drug Start: 2021 End: 2022 apply 4 g topically four times daily diclofenac (VOLTAREN ARTHRITIS PAIN) 1 % topical gel Apply 4 g to affected area four times daily. 100 g 1 12/02/2022 Active Comment on above: Apply 4 g to affecte d area four times daily. doxepin hydrochloride 10 mg oral capsule (15 sources) Tricyclic Antidepressant Start: 2020 End: 2021 take 1 capsule by mouth twice daily doxepin capsule 10 mg Take 10 mg by mouth twice daily. 0 08/08/2020 09/17/2021 Discontinued Comment on above: Take 10 mg by mouth twice daily. 0.5 ml dulaglutide 3 mg/ml auto-injector (20 sources) GLP-1 Receptor Agonist Start: 2022 End: 2023 dulaglutide (TRULICITY) 1.5 mg/0.5 mL pen injector Indications: Type 2 diabetes mellitus with hyperglycemia, without long-term current use of insulin (HCC) , Class 3 severe obesity with serious comorbidity and body mass index (BMI) of 40.0 to 44.9 in adult, unspecified obesity type (HCC) , History of dumping syndrome Inject 1.5 mg subcutaneously one time a week. 4 Each 02/05/2023 04/19/2023 Discontinued Start: 07-16-2022 End: 12-29-2022 dulaglutide (TRULICITY) 0.75 mg/0.5 mL pen injector Indications: Type 2 diabetes mellitus with hyperglycemia, without long-term current use of insulin ([facility]) , Class 3 severe obesity with serious comorbidity and body mass index (BMI) of 40.0 to 44.9 in adult, unspecified obesity type (HCC) , Type 2 diabetes mellitus with hypoglycemia without coma, without long-term current use of insulin (HCC) , History of dumping syndrome Inject 0.75 mg subcutaneously one time a week. 4 Each 0 11/30/2022 Active Comment on above: Inject 0.75 mg subcu taneously one time a week. Inject 1.5 mg subcut aneously one time a week. dulaglutide (TRULICITY) 3 mg/0.5 mL pen injector (9 sources) Start: inject 3 mg by subcutaneous injection every week dulaglutide (TRULICITY) 3 mg/0.5 mL pen injector Indications: Type 2 diabetes mellitus with hypoglycemia without coma, without long-term current use of insulin ([facility]) Inject 3 mg subcutaneously one time a week. 4 Each 04/19/2023 Active Comment on above: Inject 3 mg subcutan eously one time a week. enteric contrast (will be provided with radiology test) (3 sources) Start: End: enteric contrast (will be provided with radiology test) For CT ABD/PEL W IVCON Routine order Administer, As Directed One Time Only, via Oral, Rectal, both Oral and Rectal, Enteric Tube, Stoma or Indwelling Catheter, Enteric Contrast as designated per enteric contrast guidelines 1 Each 0 04/14/2023 04/15/2023 Discontinued Start: 04-14-2023 End: 04-15-2023 enteric contrast (will be pr ovided with radiology test) For CT ABD/PEL W IVCON Routine order Administer, As Directed One Time Only, via Oral, Rectal, both Oral and Rectal, Enteric Tube, Stoma or Indwelling Catheter, Enteric Contrast as designated per enteric contrast guidelines 1 Each 0 04/14/2023 04/15/2023 Active Comment on above: For CT ABD/PEL W IVC ON Routine order Administer, As Directed One Time Only, via Oral, Rectal, both Oral and Rectal, Enteric Tube, Stoma or Indwelling Catheter, Enteric Contrast as designated per enteric contrast guidelines escitalopram 20 mg oral tablet (20 sources) Serotonin Reuptake Inhibitor Start: 3 End: 4 take 20 mg by mouth once daily Escitalopram Oxalate Discontinued 20 MG PO Daily January 09, 2023 1:00am May 24, 2023 11:18pm take 1 tablet by mouth once sujey y escitalopram oxalate (LEXAPRO) 10 mg tablet Take 10 mg by mouth once daily. 0 Active Comment on above: Take 10 mg by mouth once daily. fluvoxaMINE maleate 100 mg oral tablet (8 sources) Serotonin Reuptake Inhibitor Start: 01-09-20 22 End: 06-12-19 23 fluvoxaMINE (LUVOX) 100 mg tablet 1/2 tab po q bedtime x 2 weeks then 1 po q bedtime x 2 weeks then 1 and 1/2 tab po q bedtime thereafter 45 tablet 2 01/08/2022 06/11/2022 Discontinued (Course of therapy completed) Comment on above: 1/2 tab po q bedtime x 2 weeks then 1 po q bedtime x 2 weeks then 1 and 1/2 tab po q bedtime thereafter hydrOXYzine pamoate 50 mg oral capsule (20 sources) Antihistamine Start: 01-10-20 23 End: 05-24-19 24 take 1-2 capsules by mouth twice daily Hydroxyzine Pamoate Discontinued 50 MG PO Twice daily January 09, 2023 1:00am May 24, 2023 11:19pm take 1-2 cap Start: 07-10-2020 take 1-2 capsules by mouth four times daily as needed for anxiety Vistaril 25 mg Cap 1-2 cap(s), Oral, QID, PRN as needed for anxiety, # 20 cap(s), Refills(s) 0, Pharmacy: [id number], 160, cm, 07/10/20 14:54:00 EDT, Height/Length Dosing, 90, kg, 07/10/20 14:54:00 EDT, Weight Dosing Start Date: 07/10/20 Status: Ordered take 1 capsule by mo [facility] every twelve hours as needed hydrOXYzine pamoate (VISTARIL) 25 mg capsule Take 25 mg by mouth two times a day as needed for anxiety. 0 Active Comment on above: Take 25 mg by mouth two times a day as needed for anxiety. magnesium oxide 400 mg oral tablet (20 sources) Start: End: take 1 tablet by mouth once daily magnesium oxide (MAG-OX) 400 mg (241.3 mg magnesium) tablet Indications: PVC (premature ventricular contraction) , Palpitations Take 1 tablet by mouth once daily. 90 tablet 1 11/21/2020 10/06/2022 Discontinued (Discontinued by Patient) Comment on above: [facility] meclizine hydrochloride 25 mg oral tablet (20 sources) Antiemetic Start: take 12.5-25 mg by mouth every eight hours as needed meclizine (ANTIVERT) 25 mg tab Take 0.5-1 tablets by mouth three times daily as needed (for dizziness.). 30 tablet 1 09/17/2021 Active Comment on above: Take 0.5-1 tablets b y mouth three times daily as needed (for dizziness.). meloxicam 15 mg oral tablet (15 sources) Nonsteroidal Anti-inflammatory Drug Start: End: take 1 tablet by mouth once daily meloxicam (MOBIC) 15 mg tablet Take 1 tablet by mouth once daily. 14 tablet 0 01/06/2021 09/17/2021 Discontinued Comment on above: [facility] metoprolol tartrate 25 mg oral tablet (15 sources) beta-Adrenergic Justine Start: End: take 1 tablet by mouth twice daily metoprolol tartrate, short acting, (LOPRESSOR) 25 mg tablet Take 1 tablet by mouth twice daily. 180 tablet 3 03/17/2021 09/17/2021 Discontinued Comment on above: Take 1 tablet by nanda twice daily. phenylephrine hydrochloride 25 mg/ml ophthalmic solution (1 source) alpha-1 Adrenergic Agonist Start: End: PHENYLephrine 2.5 % 1 Drop (AK-DILATE, OTIS-SYNEPHRINE) predniSONE 10 mg oral tablet (6 sources) Start: End: take 1 tablet by mouth once daily predniSONE (DELTASONE) 10 mg tablet Take 1 tablet by mouth once daily. 5 tablet 0 01/21/2022 06/11/2022 Discontinued (Course of therapy completed) Comment on above: Take 1 tablet by nanda th once daily. proparacaine hydrochloride 5 mg/ml ophthalmic solution (1 source) Local Anesthetic Start: End: proparacaine 0.5 % 1 Drop (ALCAINE) semaglutide (OZEMPIC) 0.25 mg or 0.5 mg (2 mg/3 mL) pen (6 sources) Start: semaglutide (OZEMPIC) 0.25 mg or 0.5 mg (2 mg/3 mL) pen Indications: Hx of gastric bypass , Type 2 diabetes mellitus with hypoglycemia without coma, without long-term current use of insulin (HCC) , Class 3 severe obesity with serious comorbidity and body mass index (BMI) of 40.0 to 44.9 in adult, unspecified obesity type (HCC) Inject 0.25 mg subcutaneously one time a week. 1 Each 2 06/23/2022 Active Comment on above: Inject 0.25 mg subcu taneously one time a week. thiamine 100 mg oral tablet (20 sources) Start: End: take 1 tablet by mouth once daily thiamine (VITAMIN B-1) 100 mg tablet Indications: Abnormal weight gain , S/P bariatric surgery , Obesity, Class II, BMI 35-39.9 , Vitamin B12 deficiency , Vitamin D deficiency , Anemia, unspecified type , Gastroesophageal reflux disease, unspecified whether esophagitis present , Elevated alkaline phosphatase level Take 1 tablet by mouth once daily. 30 tablet 11 06/24/2020 10/06/2022 Discontinued (Discontinued by Patient) Comment on above: Take 1 tablet by nanda th once daily. traMADol hydrochloride 50 mg oral tablet (15 sources) Opioid Agonist Start: End: traMADol (ULTRAM) 50 mg tablet TAKE 1 TABLET BY MOUTH EVERY 6 (SIX) - EIGHT HOURS NEEDED FOR PAIN 0 10/31/2020 09/17/2021 Discontinued Comment on above: TAKE 1 TABLET BY NANDA TH EVERY 6 (SIX) - EIGHT HOURS NEEDED FOR PAIN traZODone hydrochloride 100 mg oral tablet (20 sources) Serotonin Reuptake Inhibitor Start: 023 End: take 50 mg by mouth once daily at bedtime Trazodone Discontinued 50 MG PO Daily at bedtime January 09, 2023 1:00am May 24, 2023 11:20pm End: 01-08-2022 traZODone (DESYREL) 150 mg t ablet Take 150 mg by mouth daily at bedtime. 75 mg twice a day 0 01/08/2022 Discontinued Comment on above: Take 150 mg by mouth daily at bedtime. 75 mg twice a day tretinoin 0.25 mg/ml topical cream (20 sources) Retinoid Start: 2022 End: 2022 tretinoin (RETIN-A) 0.025 % topical cream Apply to affected area daily at bedtime. 20 g 2 12/02/2022 Active Comment on above: Apply to affected ar ea daily at bedtime. tropicamide 10 mg/ml ophthalmic solution (1 source) Anticholinergic Start: 2022 End: 2022 tropicamide 1 % 1 Drop (MYDRIACYL) vitamin b12 1 mg/ml injectable solution (20 sources) Vitamin B12 Start: 2017 End: 2022 inject 1 mL by intramuscular injection every month cyanocobalamin 1,000 mcg/mL Indications: Abnormal weight gain , S/P bariatric surgery , Obesity, Class II, BMI 35-39.9 , Vitamin B12 deficiency , Vitamin D deficiency , Anemia, unspecified type , Gastroesophageal reflux disease, unspecified whether esophagitis present inject 1 milliliter intramuscularly ONCE A MONTH as instructed 1 mL 11 12/02/2022 Active Comment on above: inject 1 milliliter intramuscularly ONCE A MONTH as instructed Vitamin D 50,000 intl units (1.25 mg) oral capsule (5 sources) Start: 2018 take 1 capsule by mouth once daily Vitamin D 50,000 intl units (1.25 mg) oral capsule 50,000 International_Unit = 1 cap(s), Oral, Daily Start Date: 04/08/18 Status: Ordered zaleplon 10 mg oral capsule (20 sources) gamma-Aminobutyric Acid A Receptor Agonist Start: 2022 End: 2023 take 1 dose by mouth once daily at bedtime Zaleplon Discontinued 10 MG PO Daily at bedtime January 09, 2023 1:00am May 24, 2023 11:32pm must avoid high-fat meal/food immediately before taking dose Start: 07-14-2022 End: 09-12-2022 take 2 capsules by mouth once daily at bedtime for sleep, then take 1 capsule by mouth every four hours for sleep zaleplon (SONATA) 5 mg capsule Indications: Chronic insomnia Take 2 capsules by mouth daily at bedtime for 60 days. Take 1 capsule if unable to fall back to sleep after waking during night as long as 4 hours remain for sleep. 60 capsule 1 07/14/2022 09/12/2022 Active Start: 12-28-2021 End: 08-13-2022 zaleplon (SONATA) 5 mg capsu le Indications: Chronic insomnia Take 1 capsule if unable to fall back to sleep after waking during night as long as 4 hours remain for sleep. Do not start before May 28, 2022. 30 capsule 2 05/28/2022 08/13/2022 Active Start: 12-12-2021 End: 06-08-2022 zaleplon (SONATA) 10 mg caps ule Indications: Other insomnia Take 1 capsule by mouth daily at bedtime for 60 days. Do not start before April 09, 2022. 30 capsule 1 04/09/2022 06/08/2022 Active Start: 11-27-2021 End: 12-11-2021 zaleplon (SONATA) 5 mg capsu le Indications: Chronic insomnia Take 2-5 mg capsules at bedtime; May take 1-5 mg capsule during the night as needed as long as there are an additional 4 hrs sleep 42 capsule 0 11/27/2021 12/11/2021 Active Start: 10-01-2021 End: 10-31-2021 zaleplon (SONATA) 5 mg capsu le Indications: Chronic insomnia Take 1 capsule if unable to fall back to sleep after waking during night as long as 4 hours remain for sleep. 30 capsule 1 10/01/2021 10/31/2021 Active Start: 09-11-2021 End: 12-10-2021 take 1 capsule by mouth once daily at bedtime zaleplon (SONATA) 10 mg capsule Indications: Other insomnia Take 1 capsule by mouth daily at bedtime for 30 days. 30 capsule 0 11/10/2021 12/10/2021 Active Start: 08-04-2021 End: 09-03-2021 take 1 capsule by mouth once daily at bedtime zaleplon (SONATA) 10 mg capsule Indications: Other insomnia Take 1 capsule by mouth daily at bedtime for 30 days. 30 capsule 0 08/04/2021 09/03/2021 Active Start: 07-08-2021 End: 08-07-2021 zaleplon (SONATA) 5 mg capsu le Indications: Chronic insomnia Take 1 capsule if unable to fall back to sleep after waking during night as long as 4 hours remain for sleep. 30 capsule 1 07/08/2021 08/07/2021 Active Start: 03-20-2021 End: 05-08-2021 zaleplon (SONATA) 5 mg capsu le Indications: Chronic insomnia Take 1 capsule if unable to fall back to sleep after waking during night as long as 4 hours remain for sleep. 30 capsule 1 03/20/2021 05/08/2021 Active Comment on above: Take 1 capsule if un able to fall back to sleep after waking during night as long as 4 hours remain for sleep. Take 1 capsule by mo uth daily at bedtime for 30 days. Take 1 capsule by mo uth daily at bedtime for 30 days. Do not start before October 11, 2021. Take 2-5 mg capsules at bedtime; May take 1-5 mg capsule during the night as needed as long as there are an additional 4 hrs sleep Take 1 capsule by mo uth daily at bedtime for 90 days. Do not start before January 11, 2022. Take 1 capsule if un able to fall back to sleep after waking during night as long as 4 hours remain for sleep. Do not start before December 28, 2021. Take 1 capsule by mo uth daily at bedtime for 60 days. Do not start before April 09, 2022. Take 1 capsule if un able to fall back to sleep after waking during night as long as 4 hours remain for sleep. Do not start before May 28, 2022. Take 2 capsules by m outh daily at bedtime for 60 days. Take 1 capsule if unable to fall back to sleep after waking during night as long as 4 hours remain for sleep. Take 10 mg by mouth daily at bedtime. Pt takes 10mg qhs Problems Active Problems Problem Classification Problem Date Documented Da te Episodic/Chronic Abdominal pain (1 source) Abdominal pain; Translations: [Unspecified abdominal pain] 04-15-2023 Episodic Acute bronchitis (3 sources) Acute bronchitis; Translations: [Acute bronchitis, unspecified] Onset: 4 Episodic Acute myocardial infarction (10 sources) Acute myocardial infarction of anterior wall; Translations: [Myocardial infarction] 04-21-2013 Chronic Comment on above: pt states it shows on ecg's 'old UT', i guess its when i had a gi bleed and went into v-tach d/t anemia from radha re GI bleed Acute posthemorrhagic anemia (5 sources) Acute posthemorrhagic anemia 02-02-2019 Episodic Comment on above: from gi bleed Alcohol-related disorders (1 source) Alcohol dependence, uncomplicated; Translations: [Alcohol dependence, uncomplicated] Onset: 4 Chronic Anxiety disorders (20 sources) Generalized anxiety disorder; Translations: [Generalized anxiety disorder] Onset: 3 Chronic Cancer of thyroid (20 sources) Papillary thyroid carcinoma; Translations: [Malignant neoplasm of thyroid gland] Onset: 1 01-12-2011 Chronic Cardiac dysrhythmias (1 source) Multiple premature ventricular complexes; Translations: [Ventricular premature depolarization] Chronic Cardiac dysrhythmias (8 sources) Palpitations; Translations: [Palpitations] Onset: 3 Episodic Chronic obstructive pulmonary disease and bronchiectasis (5 sources) Chronic bronchitis 03-01-2013 Chronic Complications of surgical procedures or medical care (20 sources) Post-surgical malabsorption; Translations: [Postsurgical malabsorption, not elsewhere classified] Onset: 8 03-04-2017 Chronic Congestive heart failure; nonhypertensive (2 sources) Unspecified diastolic (congestive) heart failure; Translations: [UNSPECIFIED DIASTOLIC HEART FAILURE] Onset: 3 Chronic Contraceptive and procreative management (1 source) Contraception status; Translations: [Encounter for other general counseling and advice on contraception] 01-05-2023 Episodic Deficiency and other anemia (20 sources) Anemia; Translations: [Anemia, unspecified] 10-08-2017 Episodic Deficiency and other anemia (1 source) Deficiency anemias; Translations: [Nutritional anemia, unspecified] Episodic Diabetes mellitus with complications (20 sources) Type 2 diabetes mellitus; Translations: [Type II or unspecified type diabetes mellitus without mention of complication, uncontrolled] Onset: 9 04-17-2008 Chronic Diabetes mellitus without complication (20 sources) Diabetes mellitus; Translations: [Type 2 diabetes mellitus without complications] Onset: 9 10-08-2017 Chronic Diabetes or abnormal glucose tolerance complicating ; childbirth; or the puerperium (20 sources) Diabetes mellitus of mother, complicating , childbirth, or the puerperium, unspecified as to episode of care or not applicable; Translations: [Diabetes mellitus of mother, complicating , childbirth, or the puerperium, unspecified as to episode of care(648.00)] Onset: 7 04-20-2007 Chronic Diverticulosis and diverticulitis (5 sources) Diverticulitis 04-04-2015 Chronic Esophageal disorders (20 sources) Gastroesophageal reflux disease; Translations: [Gastro-esophageal reflux disease without esophagitis] 10-08-2017 Chronic Essential hypertension (1 source) Essential (primary) hypertension; Translations: [Essential hypertension, malignant] Onset: 3 Chronic Genitourinary congenital anomalies (5 sources) Medullary sponge kidney 04-21-2013 Chronic Genitourinary symptoms and ill-defined conditions (1 source) Increased frequency of urination; Translations: [Frequency of micturition] Episodic Glaucoma (20 sources) Preglaucoma, unspecified, bilateral; Translations: [Preglaucoma, unspecified] Onset: 3 Chronic Heart valve disorders (20 sources) Mitral and aortic incompetence; Translations: [Rheumatic disorders of both mitral and aortic valves] Onset: 0 10-08-2017 Chronic Hypertension with complications and secondary hypertension (1 source) Hypertensive heart disease with heart failure; Translations: [HTN HEART DISEASE W/HEART FAIL] Onset: 3 Chronic Inflammation; infection of eye (except that caused by tuberculosis or sexually transmitteddisease) (1 source) Chronic allergic conjunctivitis; Translations: [Other chronic allergic conjunctivitis] Chronic Joint disorders and dislocations; trauma-related (2 sources) Chondromalacia of left patella; Translations: [Chondromalacia patellae, left knee] Onset: 2 Chronic Menopausal disorders (20 sources) Postmenopausal bleeding; Translations: [Postmenopausal bleeding] Onset: 3 Chronic Miscellaneous mental health disorders (20 sources) Chronic insomnia; Translations: [Psychophysiologic insomnia] Onset: 3 Chronic Mood disorders (2 sources) Major depressive disorder, single episode, unspecified; Translations: [Major depressive disorder, recurrent, moderate] Onset: 4 Chronic Nausea and vomiting (20 sources) Nausea and vomiting; Translations: [Nausea with vomiting, unspecified] Onset: 7 08-20-2016 Episodic Nonspecific chest pain (1 source) Chest pain; Translations: [Chest pain, unspecified] Onset: 3 Episodic Nutritional deficiencies (5 sources) Vitamin D deficiency, unspecified; Translations: [Vitamin D deficiency] Onset: 3 09-30-2022 Chronic Nutritional deficiencies (1 source) Cobalamin deficiency; Translations: [Deficiency of other specified B group vitamins] 12-02-2022 Episodic Osteoarthritis (20 sources) Degenerative joint disease involving multiple joints; Translations: [Secondary multiple arthritis] Onset: 7 08-05-2016 Chronic Other connective tissue disease (1 source) Nontraumatic complete rupture of rotator cuff of right shoulder; Translations: [Complete rotator cuff tear or rupture of right shoulder, not specified as traumatic] Episodic Other connective tissue disease (1 source) Impingement syndrome of right shoulder region; Translations: [Impingement syndrome of right shoulder] Episodic Other connective tissue disease (5 sources) Fibromyositis 09-28-2018 Episodic Other connective tissue disease (1 source) Tendonitis of left patellar tendon; Translations: [Patellar tendinitis, left knee] Episodic Other connective tissue disease (1 source) H/O: rheumatoid arthritis; Translations: [Personal history of other diseases of the musculoskeletal system and connective tissue] 12-27-2020 Episodic Other endocrine disorders (1 source) Hypoglycemia; Translations: [Hypoglycemia, unspecified] 09-30-2022 Chronic Other endocrine disorders (2 sources) Hypoglycemia, unspecified; Translations: [Hypoglycemia] Onset: 3 Chronic Other eye disorders (1 source) Bilateral myogenic ptosis of eyes; Translations: [Myogenic ptosis of bilateral eyelids] Episodic Other female genital disorders (1 source) Abnormal uterine bleeding due to endometrial polyp; Translations: [Abnormal uterine and vaginal bleeding, unspecified] 01-05-2023 Chronic Other gastrointestinal disorders (5 sources) History of gastrointestinal bleed 09-28-2018 Episodic Other gastrointestinal disorders (3 sources) History of bypass of stomach; Translations: [Bariatric surgery status] Episodic Other gastrointestinal disorders (1 source) H/O: gastrointestinal disease; Translations: [Personal history of other diseases of the digestive system] 11-30-2022 Episodic Other gastrointestinal disorders (1 source) History of bariatric surgical procedure; Translations: [Bariatric surgery status] 12-02-2022 Episodic Other gastrointestinal disorders (4 sources) Dysphagia; Translations: [Dysphagia, unspecified] 03-22-2023 Episodic Other gastrointestinal disorders (2 sources) Dysphagia, unspecified; Translations: [Dysphagia, unspecified type] Onset: 4 Episodic Other infections; including parasitic (3 sources) Late effects of other and unspecified infectious and parasitic diseases; Translations: [Post-acute sequelae of COVID-19 (PASC)] Chronic Other lower respiratory disease (5 sources) H/O: pneumonia 09-28-2018 Episodic Other lower respiratory disease (1 source) Shortness of breath; Translations: [SHORTNESS OF BREATH] Onset: 3 Episodic Other lower respiratory disease (1 source) Pleuritic pain; Translations: [Pleurodynia] Onset: 4 Episodic Other lower respiratory disease (2 sources) Rib pain 03-26-2023 Episodic Other nervous system disorders (1 source) H/O: respiratory disease; Translations: [Personal history of other diseases of the nervous system and sense organs] 11-27-2022 Episodic Other non-traumatic joint disorders (1 source) Shoulder pain; Translations: [Pain in right shoulder] Episodic Other non-traumatic joint disorders (1 source) Joint pain; Translations: [Pain in unspecified joint] 12-27-2020 Episodic Other non-traumatic joint disorders (1 source) Instability of right shoulder joint; Translations: [Other instability, right shoulder] 12-27-2020 Episodic Other non-traumatic joint disorders (2 sources) Pain in right shoulder; Translations: [Pain in joint, shoulder region] Onset: 4 12-27-2020 Episodic Other non-traumatic joint disorders (2 sources) Chronic pain of right upper limb; Translations: [Pain in right shoulder] 11-21-2020 Episodic Other non-traumatic joint disorders (3 sources) Pain in left shoulder; Translations: [Pain in joint, shoulder region] Onset: 4 04-01-2023 Episodic Other nutritional; endocrine; and metabolic disorders (20 sources) Metabolic syndrome X; Translations: [Metabolic syndrome] Onset: 7 06-17-2006 Chronic Other nutritional; endocrine; and metabolic disorders (20 sources) Obesity; Translations: [Obesity, unspecified] Onset: 7 06-17-2006 Chronic Other nutritional; endocrine; and metabolic disorders (20 sources) Morbid obesity; Translations: [Morbid (severe) obesity due to excess calories] Onset: 7 12-01-2016 Chronic Other nutritional; endocrine; and metabolic disorders (20 sources) Obese class I; Translations: [Obesity, unspecified] Onset: 8 01-10-2018 Chronic Other nutritional; endocrine; and metabolic disorders (3 sources) Morbid (severe) obesity due to excess calories; Translations: [MORBID SEVERE OBES D/T EXCESS SHASHA] Onset: Chronic Other nutritional; endocrine; and metabolic disorders (2 sources) Obese class II; Translations: [Obesity, unspecified] 10-23-2022 Chronic Other nutritional; endocrine; and metabolic disorders (20 sources) Severe obesity; Translations: [Morbid (severe) obesity due to excess calories] Onset: 7 10-26-2022 Chronic Other nutritional; endocrine; and metabolic disorders (1 source) Body mass index (BMI) 40.0-44.9, adult; Translations: [Class 3 severe obesity with serious comorbidity and body mass index (BMI) of 40.0 to 44.9 in adult, unspecified obesity type (HCC)] Onset: Chronic Other nutritional; endocrine; and metabolic disorders (1 source) Abnormal weight gain; Translations: [Abnormal weight gain] 12-02-2022 Episodic Other screening for suspected conditions (not mental disorders or infectious disease) (20 sources) Endometrium thickened; Translations: [Abnormal findings on diagnostic imaging of other specified body structures] Onset: 3 10-02-2022 Chronic Other skin disorders (1 source) Wrinkled face; Translations: [Other specified disorders of the skin and subcutaneous tissue] Episodic Residual codes; unclassified (20 sources) Obstructive sleep apnea syndrome; Translations: [Obstructive sleep apnea (adult) (pediatric)] 12-18-2015 Chronic Residual codes; unclassified (5 sources) Insomnia; Translations: [Other insomnia] Chronic Residual codes; unclassified (6 sources) Sleep apnea; Translations: [Sleep apnea, unspecified] 09-28-2018 Chronic Residual codes; unclassified (1 source) Obstructive sleep apnea (adult) (pediatric); Translations: [TALIA (obstructive sleep apnea)] Onset: 6 Chronic Residual codes; unclassified (2 sources) Localized edema; Translations: [Localized edema] Onset: 3 Episodic Residual codes; unclassified (3 sources) Localized edema; Translations: [LOCALIZED EDEMA] Onset: 3 Episodic Residual codes; unclassified (1 source) Did not attend; Translations: [No-show for appointment] 09-29-2022 Episodic Rheumatoid arthritis and related disease (20 sources) Rheumatoid arthritis of multiple joints; Translations: [Rheumatoid arthritis without rheumatoid factor, multiple sites] Onset: 7 08-09-2016 Chronic Skin and subcutaneous tissue infections (10 sources) Cellulitis; Translations: [Cellulitis and abscess of lower limb] Onset: 9 04-21-2013 Episodic Comment on above: R leg Spondylosis; intervertebral disc disorders; other back problems (5 sources) Chronic neck pain; Translations: [Cervicalgia] Onset: 4 11-21-2020 Episodic Sprains and strains (2 sources) Traumatic rupture of rotator cuff; Translations: [Strain of muscle(s) and tendon(s) of the rotator cuff of right shoulder, subsequent encounter] Onset: 2 Episodic Superficial injury; contusion (1 source) Injury of eye region; Translations: [Injury of conjunctiva and corneal abrasion without foreign body, left eye, initial encounter] Onset: 2 Episodic Thyroid disorders (20 sources) [place] thyroiditis; Translations: [Autoimmune thyroiditis] Onset: 7 06-17-2006 Chronic Unclassified (2 sources) NO SHOW Unclassified (5 sources) thyroid cancer/thyroidectomy 6 09-28-2018 Comment on above: reports thyroidecto my wasn'tcompleted properly- Botched up so I still have it Unclassified (4 sources) CONTACT W/AND (SUSP) EXPOS COVID-19; Translations: [CONTACT W/AND (SUSP) EXPOS COVID-19] Onset: 2 Unclassified (1 source) COUGH, UNSPECIFIED; Translations: [COUGH, UNSPECIFIED] Onset: 3 Unclassified (1 source) No-show for appointment; Translations: [No-show for appointment] Onset: 3 Past or Other Problems Problem Classification Problem Date Documented Da te Episodic/Chronic Calculus of urinary tract (1 source) Personal history of urinary calculi; Translations: [PERSONAL HISTORY OF URINARY CALCULI] Onset: 2 Episodic Cancer of thyroid (4 sources) History of papillary adenocarcinoma of thyroid; Translations: [Personal history of malignant neoplasm of thyroid] Onset: 3 09-30-2022 Episodic Conditions associated with dizziness or vertigo (5 sources) Vertigo; Translations: [Dizziness and giddiness] Onset: 3 Episodic Deficiency and other anemia (20 sources) Megaloblastic anemia due to decreased intake of vitamin B>12<; Translations: [Other vitamin B12 deficiency anemias] Onset: 7 08-09-2016 Episodic Deficiency and other anemia (20 sources) Iron deficiency anemia; Translations: [Iron deficiency anemia, unspecified] Onset: 9 07-29-2018 Episodic Deficiency and other anemia (1 source) Anemia, unspecified; Translations: [ANEMIA UNSPECIFIED] Onset: 2 Episodic Diabetes mellitus without complication (3 sources) Other abnormal glucose; Translations: [Prediabetes] Onset: 3 10-23-2022 Episodic Fever of unknown origin (1 source) Fever, unspecified; Translations: [FEVER UNSPECIFIED] Onset: 3 Episodic Fluid and electrolyte disorders (1 source) Dehydration; Translations: [DEHYDRATION] Onset: 2 Episodic Gastrointestinal hemorrhage (20 sources) Gastrointestinal hemorrhage; Translations: [Gastrointestinal hemorrhage, unspecified] Onset: 1 02-04-2021 Episodic Immunizations and screening for infectious disease (20 sources) Anti-cyclic citrullinated peptide antibody positive; Translations: [Other specified abnormal immunological findings in serum] Onset: 7 08-09-2016 Episodic Inflammation; infection of eye (except that caused by tuberculosis or sexually transmitteddisease) (20 sources) Conjunctivitis; Translations: [Unspecified conjunctivitis] Onset: 3 06-11-2022 Episodic Malaise and fatigue (20 sources) Malaise and fatigue; Translations: [Other malaise] Onset: 7 06-17-2006 Episodic Other aftercare (1 source) Other snf (current) drug therapy; Translations: [OTH COMPUTER ARTIST CURRENT DRUG THERAPY] Onset: 2 Episodic Other circulatory disease (1 source) Other specified symptoms and signs involving the circulatory and respiratory systems; Translations: [OTH SPEC SX SIGNS INVLV CIRC RS] Onset: 3 Episodic Other connective tissue disease (20 sources) Fibromyalgia; Translations: [Fibromyalgia] Onset: 0 10-08-2017 Episodic Other connective tissue disease (1 source) Patellar tendinitis, left knee; Translations: [PATELLAR TENDINITIS LEFT KNEE] Onset: 2 Episodic Other eye disorders (20 sources) Dermatochalasis of right upper eyelid; Translations: [Dermatochalasis] Onset: 3 Episodic Other eye disorders (20 sources) Disorder of lacrimal gland; 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] Onset: 3 Episodic Other eye disorders (1 source) Dermatochalasis of left upper eyelid; Translations: [Dermatochalasis of both upper eyelids] Onset: 3 Episodic Other eye disorders (1 source) Myogenic ptosis of bilateral eyelids; Translations: [Myogenic ptosis of bilateral eyelids] Onset: 3 Episodic Other female genital disorders (20 sources) History of dysplasia of cervix; Translations: [Personal history of cervical dysplasia] Onset: 3 Episodic Other gastrointestinal disorders (20 sources) Diarrhea; Translations: [Diarrhea, unspecified] Onset: 8 10-13-2017 Episodic Other gastrointestinal disorders (20 sources) Vomiting fecal matter; Translations: [Vomiting of fecal matter] Onset: 8 10-13-2017 Episodic Other gastrointestinal disorders (4 sources) Bariatric surgery status; Translations: [History of gastric bypass] Onset: 2 Episodic Other gastrointestinal disorders (4 sources) Diarrhea, unspecified; Translations: [DIARRHEA UNSPECIFIED] Onset: 2 Episodic Other nervous system disorders (1 source) Tremor, unspecified; Translations: [TREMOR UNSPECIFIED] Onset: 3 Episodic Other nervous system disorders (4 sources) Other abnormalities of gait and mobility; Translations: [OTHER ABNORMALITIES GAIT AND MOBILITY] Onset: 2 Episodic Other non-traumatic joint disorders (4 sources) Pain in left knee; Translations: [PAIN IN LEFT KNEE] Onset: 2 Episodic Other screening for suspected conditions (not mental disorders or infectious disease) (20 sources) Patient encounter status; Translations: [Encounter for screening mammogram for malignant neoplasm of breast] Onset: 3 Episodic Other upper respiratory infections (2 sources) Acute pharyngitis, unspecified; Translations: [Acute sinusitis, unspecified] Onset: 3 Episodic Ovarian cyst (20 sources) Complex ovarian cyst; Translations: [Other ovarian cyst, unspecified side] Onset: 3 09-14-2022 Episodic Phlebitis; thrombophlebitis and thromboembolism (20 sources) Deep venous thrombosis; Translations: [Acute embolism and thrombosis of unspecified deep veins of unspecified lower extremity] Onset: 2 09-28-2018 Episodic Pneumonia (except that caused by tuberculosis or sexually transmitted disease) (20 sources) Pneumonia; Translations: [Pneumonia, unspecified organism] Onset: 7 12-08-2016 Episodic Residual codes; unclassified (20 sources) Flushing; Translations: [Flushing] Onset: 8 04-20-2007 Episodic Residual codes; unclassified (1 source) Acquired absence of other specified parts of digestive tract; Translations: [ACQ ABSENCE OTH PART DIGESTV TRACT] Onset: 2 Episodic Residual codes; unclassified (3 sources) Unspecified symptoms and signs involving cognitive functions and awareness; Translations: [Other signs and symptoms involving cognition] Onset: 3 11-13-2022 Episodic Syncope (4 sources) Syncope and collapse; Translations: [SYNCOPE AND COLLAPSE] Onset: 2 Episodic Unclassified (5 sources) Hx of heart catheterization 4 03-01-2013 Comment on above: 2009 Unclassified (5 sources) scopes 08-29-2011 Unclassified (1 source) CONTACT W/AND (SUSP) EXPOS COVID-19; Translations: [CONTACT W/AND (SUSP) EXPOS COVID-19] Onset: 3 Results Test Name Value Interpretation Reference Range Facility ECG 12 lead ECGon 05-25-2023 ECG 12 lead ECG [facility] [place] [address] Electrocardiograph Report Signed Patient: Esme Morfin MR#: [id number] 34 : 1975 Acct:[id number] Age/Sex: 47 / F ADM Date: 05/25/23 Loc: Room: [address] [place] [address] Type: ADM IN Attending Dr: Prince Tucker MD Ordering Provider: Prince Tucker MD Date of Service: 05/25/23 ECG/ECG 12 lead ECG: ANTIPSYCHOTIC THERAPY Copies to: Test Reason : Blood Pressure : / mmHG Vent. Rate : 080 BPM Atrial Rate : 080 BPM P-R Int : 124 ms QRS Dur : 084 ms QT Int : 406 ms P-R-T Axes : 000 -41 005 degrees QTc Int : 468 ms Normal sinus rhythm Left axis deviation Abnormal ECG When compared with ECG of 07-FEB-2023 23:01, Nonspecific T wave abnormality no longer evident in Lateral leads Confirmed by Yoan Huddleston ([id number]) on 05/25/2023 1:53:12 PM Referred By: Electronically Signed By:Yoan Huddleston Transcribed By: MUS Signed By Yoan Huddleston MD 05/25/23 1353 Normal [facility] Alanine aminotransferase [En zymatic activity/volume] in Serum or PlasmaOrdered By: Tank Little on 05-24-2023 ALT [Catalytic activity/Vol] 21 U/L 7-52 [facility] Albumin [Mass/volume] in Ser um or Plasma by Bromocresol green (BCG) dye binding methoOrdered By: Tank Little on 05-24-2023 Albumin BCG dye [Mass/Vol] 4.0 g/dL 3.5-5.7 [facility] Alkaline phosphatase [Enzyma tic activity/volume] in Serum or PlasmaOrdered By: Tank Little on 05-24-2023 ALP [Catalytic activity/Vol] 123 U/L 34-104 [facility] Amphetamine Screen Ql (U)Ord ered By: Tank Little on 05-24-2023 Amphetamines Ql (U) Negative Negative [facility] Aspartate aminotransferase [ Enzymatic activity/volume] in Serum or PlasmaOrdered By: Tank Little on 05-24-2023 AST [Catalytic activity/Vol] 27 U/L 13-39 [facility] Barbiturates [Presence] in U rine by Screen methodOrdered By: Tank Little on 05-24-2023 Barbiturates Screen Ql (U) Negative Negative [facility] Basophils Auto (Bld) [#/Vol] Ordered By: Tank Little on 05-24-2023 Basophils (Bld) [#/Vol] 0.1 10*3/uL 0.0-0.2 [facility] Basophils/100 WBC Auto (Bld) Ordered By: Tank Little on 05-24-2023 Basophils/100 WBC (Bld) 1.0 % . [facility] Benzodiazepines Screen Ql (U )Ordered By: Tank Little on 05-24-2023 Benzodiazepines Ql (U) Positive Negative [facility] Benzoylecgonine [Presence] i n Urine by Screen methodOrdered By: Tank Little on 05-24-2023 Benzoylecgonine Screen Ql (U) Negative Negative [facility] Bilirubin Test strip Ql (U)O rdered By: Tank Little on 05-24-2023 Bilirubin Ql (U) Negative Negative [facility] Bilirubin.total [Mass/volume ] in Serum or PlasmaOrdered By: Tank Little on 05-24-2023 Bilirubin [Mass/Vol] 0.3 mg/dL 0.3-1.[address] [facility] Calcium [Mass/volume] in Ser um or PlasmaOrdered By: Tank Little on 05-24-2023 Calcium [Mass/Vol] 8.6 mg/dL 8.6-10.3 [facility] Cannabinoids [Presence] in U rine by Screen methodOrdered By: Tank Little on 05-24-2023 Cannabinoids Screen Ql (U) Negative Negative [facility] Comment on above: These are unconfirme d results and should not be used for legal purposes. Drug Cut-Off Concentration: AMPH 1000 ng/mL LIYA 200 ng/mL HAILEY 200 ng/mL COCM 300 ng/mL OP 300 ng/mL PCP 25 ng/mL THC 20 ng/mL Carbon dioxide, total [Moles /volume] in Serum or PlasmaOrdered By: Tank Little on 05-24-2023 CO2 [Moles/Vol] 24.0 mmol/L 21.0-31.0 [facility] Chloride [Moles/volume] in S jemal or PlasmaOrdered By: Tank Little on 05-24-2023 Chloride [Moles/Vol] 106 mmol/L 98-[address] [facility] Color Auto (U)Ordered By: Randy Little on 05-24-2023 Color (U) Yellow Yellow [facility] Complete Blood Count Auto Di ffon 05-24-2023 Basophils (Bld) [#/Vol] 0.1 10*3/uL Normal 0.0-0.2 [facility] Comment on above: Result Comment: PERF ORMED BY: [place] [address] PATHOLOGIST MACHINIST CLASS B NETO FLORENTINO M.D. Performed By: #### E MIROSLAVA, CMP, LIPID, [id number], TSH3 wRFLX, CBC #### [facility] [address] Basophils/100 WBC (Bld) 1.0 % Normal . [facility] Comment on above: Performed By: #### E MIROSLAVA, CMP, LIPID, [id number], TSH3 wRFLX, CBC #### [address] Eosinophils (Bld) [#/Vol] 0.4 10*3/uL Normal 0.0-0.45 [facility] Comment on above: Performed By: #### E MIROSLAVA, CMP, LIPID, [id number], TSH3 wRFLX, CBC #### [address] Eosinophils/100 WBC (Bld) 4.1 % Normal . [facility] Comment on above: Performed By: #### E MIROSLAVA, CMP, LIPID, [id number], TSH3 wRFLX, CBC #### [address] Erythrocyte distribution width (RBC) [Ratio] 15.1 % Normal 11.9-15.3 [facility] Comment on above: Performed By: #### E MIROSLAVA, CMP, LIPID, [id number], TSH3 wRFLX, CBC #### [address] Hematocrit (Bld) [Volume fraction] 38.7 % Normal 34.0-46.4 [facility] Comment on above: Performed By: #### E MIROSLAVA, CMP, LIPID, [id number], TSH3 wRFLX, CBC #### [address] Hemoglobin (Bld) [Mass/Vol] 12.5 g/dL Normal 11.8-15.4 [facility] Comment on above: Performed By: #### E MIROSLAVA, CMP, LIPID, [id number], TSH3 wRFLX, CBC #### [address] Lymphocytes (Bld) [#/Vol] 2.7 10*3/uL Normal 1.00-4.8 [facility] Comment on above: Performed By: #### E MIROSLAVA, CMP, LIPID, [id number], TSH3 wRFLX, CBC #### [address] [place] [address] [place] Lymphocytes/100 WBC (Bld) 30.5 % Normal . [facility] Comment on above: Performed By: #### E MIROSLAVA, CMP, LIPID, [id number], TSH3 wRFLX, CBC #### [address] MCH (RBC) [Entitic mass] 27.7 pg Normal 24.7-34.3 [facility] Comment on above: Performed By: #### E MIROSLAVA, CMP, LIPID, [id number], TSH3 wRFLX, CBC #### [address] MCV (RBC) [Entitic vol] 85.6 fL Normal 80-100 [facility] Comment on above: Performed By: #### E MIROSLAVA, CMP, LIPID, [id number], TSH3 wRFLX, CBC #### [address] Mean Corpuscular HGB Conc 32.4 g/dL Normal 32.0-35.0 [facility] Comment on above: Performed By: #### E MIROSLAVA, CMP, LIPID, [id number], TSH3 wRFLX, CBC #### [address] Monocytes (Bld) [#/Vol] 0.9 10*3/uL High 0.0-0.8 [facility] Comment on above: Performed By: #### E MIROSLAVA, CMP, LIPID, [id number], TSH3 wRFLX, CBC #### [address] Monocytes/100 WBC (Bld) 17.70 % Normal 0.00-20.00 [facility] Comment on above: Performed By: #### E MIROSLAVA, CMP, LIPID, [id number], TSH3 wRFLX, CBC #### [address] Monocytes/100 WBC (Bld) 10.0 % Normal . [facility] Comment on above: Performed By: #### E MIROSLAVA, CMP, LIPID, [id number], TSH3 wRFLX, CBC #### [address] Neutrophils (Bld) [#/Vol] 4.8 10*3/uL Normal 1.8-7.7 [facility] Comment on above: Performed By: #### E MIROSLAVA, CMP, LIPID, [id number], TSH3 wRFLX, CBC #### [address] Neutrophils/100 WBC (Bld) 54.4 % Normal . [facility] Comment on above: Performed By: #### E MIROSLAVA, CMP, LIPID, [id number], TSH3 wRFLX, CBC #### [address] NRBC% 0.2 /100{WBC} Normal 0-0.5 [facility] Comment on above: Performed By: #### E MIROSLAVA, CMP, LIPID, [id number], TSH3 wRFLX, CBC #### [address] Platelet mean volume (Bld) [Entitic vol] 8.4 fL Normal 6.3-10.7 [facility] Comment on above: Performed By: #### E MIROSLAVA, CMP, LIPID, [id number], TSH3 wRFLX, CBC #### [address] Platelets (Bld) [#/Vol] 279 10*3/uL Normal 150-450 [facility] Comment on above: Performed By: #### E MIROSLAVA, CMP, LIPID, [id number], TSH3 wRFLX, CBC #### [place] [address] [place] RBC (Bld) [#/Vol] 4.52 10*6/uL Normal 3.60-5.00 [facility] Comment on above: Performed By: #### E MIROSLAVA, CMP, LIPID, [id number], TSH3 wRFLX, CBC #### [address] WBC (Bld) [#/Vol] 8.9 10*3/uL Normal 3.8-11.6 [facility] Comment on above: Performed By: #### E MIROSLAVA, CMP, LIPID, [id number], TSH3 wRFLX, CBC #### [address] Comprehensive Metabolic Pane christiano 05-24-2023 Albumin [Mass/Vol] 4.0 g/dL Normal 3.5-5.7 [facility] Comment on above: Performed By: #### U RDS, UA, UHCG #### [address] Albumin/Globulin [Mass ratio] 1.2 {ratio} Normal [facility] Comment on above: Performed By: #### U RDS, UA, UHCG #### [address] ALP [Catalytic activity/Vol] 123 U/L High 34-104 [facility] Comment on above: Performed By: #### U RDS, UA, UHCG #### [address] ALT [Catalytic activity/Vol] 21 U/L Normal 7-52 [facility] Comment on above: Performed By: #### U RDS, UA, UHCG #### [address] Anion gap [Moles/Vol] 13.3 mmol/L Normal 6.0-15.0 [facility] Comment on above: Performed By: #### U RDS, UA, UHCG #### [address] AST [Catalytic activity/Vol] 27 U/L Normal 13-39 [facility] Comment on above: Performed By: #### U RDS, UA, UHCG #### [address] Bilirubin [Mass/Vol] 0.3 mg/dL Normal 0.3-1.0 [facility] Comment on above: Performed By: #### U RDS, UA, UHCG #### [facility] [address] Calcium [Mass/Vol] 8.6 mg/dL Normal 8.6-10.3 [facility] Comment on above: Performed By: #### U RDS, UA, UHCG #### [facility] [address] Chloride [Moles/Vol] 106 mmol/L Normal 98-107 [facility] Comment on above: Performed By: #### U RDS, UA, UHCG #### [facility] [address] CO2 [Moles/Vol] 24.0 mmol/L Normal 21.0-31.0 [facility] Comment on above: Performed By: #### U RDS, UA, UHCG #### [facility] [address] Creatinine [Mass/Vol] 1.00 mg/dL Normal 0.60-1.20 [facility] Comment on above: Performed By: #### U RDS, UA, UHCG #### [facility] [address] [place] [address] [place] Creatinine Clr Calc Pharmacy 80.72 Normal [facility] Comment on above: Result Comment: PERF ORMED BY: [place] [address] PATHOLOGIST MACHINIST CLASS B NETO FLORENTINO M.D. Performed By: #### U RDS, UA, UHCG #### [facility] [address] [place] [address] [place] GFR/1.73 sq M.predicted MDRD (S/P/Bld) [Vol rate/Area] mL/min/{1.73_m2} Normal [facility] Comment on above: Performed By: #### U RDS, UA, UHCG #### [facility] [address] [place] [address] [place] Globulin (S) [Mass/Vol] 3.3 g/dL Normal [facility] Comment on above: Performed By: #### U RDS, UA, UHCG #### [facility] [address] Glucose [Mass/Vol] 118 mg/dL High 70-100 [facility] Comment on above: Result Comment: [place] Glucose Reference Range is dependent on time and content of last meal. Glucose of more than 200 mg/dL in a nonstressed, ambulatory subject supports the diagnosis of Diabetes Mellitus. ADA recommended reference range Performed By: #### U RDS, UA, UHCG #### [facility] [address] Potassium [Moles/Vol] 4.3 mmol/L Normal 3.5-5.1 [facility] Comment on above: Performed By: #### U RDS, UA, UHCG #### [address] Protein [Mass/Vol] 7.3 g/dL Normal 6.4-8.9 [facility] Comment on above: Performed By: #### U RDS, UA, UHCG #### [address] Sodium [Moles/Vol] 139 mmol/L Normal 136-145 [facility] Comment on above: Performed By: #### U RDS, UA, UHCG #### [place] [id number] [place] Urea nitrogen [Mass/Vol] 22 mg/dL Normal 7-25 [facility] Comment on above: Performed By: #### U RDS, UA, UHCG #### [place] [id number] [place] Creatinine [Mass/volume] in Serum or PlasmaOrdered By: Tank Little on 05-24-2023 Creatinine [Mass/Vol] 1.00 mg/dL 0.60-1.20 [facility] Drug Screen,Urineon 05-24-19 24 Amphetamine Screen,Urine Negative Normal Negative [facility] Comment on above: Performed By: #### U RDS, UA, UHCG #### [place] [address] [place] Barbiturate Screen,Urine Negative Normal Negative [facility] Comment on above: Performed By: #### U RDS, UA, UHCG #### [address] Benzodiazepines Screen,Urine Positive High Negative [facility] Comment on above: Performed By: #### U RDS, UA, UHCG #### [address] Cannabinoid Screen,Urine Negative Normal Negative [facility] Comment on above: Result Comment: Thes e are unconfirmed results and should not be used for legal purposes. Drug Cut-Off Concentration: AMPH 1000 ng/mL LIYA 200 ng/mL HAILEY 200 ng/mL COCM 300 ng/mL OP 300 ng/mL PCP 25 ng/mL THC 20 ng/mL PERFORMED BY: [place] [address] PATHOLOGIST MACHINIST CLASS B NETO FLORENTINO M.D. Performed By: #### U RDS, UA, CG #### [address] Cocaine Screen,Urine Negative Normal Negative [facility] Comment on above: Performed By: #### U RDS, UA, CG #### [address] Opiate Screen,Urine Negative Normal Negative [facility] Comment on above: Performed By: #### U RDS, UA, CG #### [address] Phencyclidine Screen,Urine Negative Normal Negative [facility] Comment on above: Performed By: #### U RDS, UA, CG #### [place] [address] [place] Eosinophils Auto (Bld) [#/Vo l]Ordered By: Tank Little on 05-24-2023 Eosinophils (Bld) [#/Vol] 0.4 10*3/uL 0.0-0.45 [facility] Eosinophils/100 WBC Auto (Bl d)Ordered By: Tank Little on 05-24-2023 Eosinophils/100 WBC (Bld) 4.1 % . [facility] Erythrocyte distribution wid th Auto (RBC) [Ratio]Ordered By: Tank Little on 05-24-2023 Erythrocyte distribution width (RBC) [Ratio] 15.1 % 11.9-15.3 [facility] Ethanol [Mass/volume] in Ser um or PlasmaOrdered By: Tank Little on 05-24-2023 Ethanol [Mass/Vol] 234 mg/dL [facility] Ethanol [Mass/Vol] 0.234 % [facility] Ethyl Alcohol Profileon 05-09 Ethanol [Mass/Vol] 234 mg/dL Normal [facility] Comment on above: Performed By: #### U EVELYNE , [facility] #### [address] Percent Ethanol 0.234 % Normal [facility] Comment on above: Result Comment: PERF ORMED BY: [place] [address] PATHOLOGIST MACHINIST CLASS B NETO FLORENTINO M.D. Performed By: #### U RANDI STUBBS, [facility] #### [facility] [address] [place] [address] Globulin Calc (S) [Mass/Vol] Ordered By: Tank Little on 05-24-2023 Globulin (S) [Mass/Vol] 3.3 g/dL [facility] Glucose [Mass/volume] in Ser um or PlasmaOrdered By: Tank Little on 05-24-2023 Glucose [Mass/Vol] 118 mg/dL 70-100 [facility] Comment on above: ADA recommended refe rence rangeRandom Glucose Reference Range is dependent on time and content of last meal. Glucose of more than 200 mg/dL in a nonstressed, ambulatory subject supports the diagnosis of Diabetes Mellitus. HCG ( test) IAwilliami d Ql (U)Ordered By: Tank Little on 05-24-2023 HCG ( test) Ql (U) Negative [facility] HCG,Urineon 05-24-2023 Beta HCG ( test) Ql (U) Negative Normal [facility] Comment on above: Order Comment: Name Collection Type:: Clean-Voided Midstream Result Comment: PERF ORMED BY: [place] [address] PATHOLOGIST MACHINIST CLASS B NETO FLORENTINO M.D. Performed By: #### U RDS, UA, UHCG #### [facility] [address] Hematocrit Auto (Bld) [Volum e fraction]Ordered By: Tank Little on 05-24-2023 Hematocrit (Bld) [Volume fraction] 38.7 % 34.0-46.4 [facility] Hemoglobin [Mass/volume] in BloodOrdered By: Tank Little on 05-24-2023 Hemoglobin (Bld) [Mass/Vol] 12.5 g/dL 11.8-15.4 [facility] Ketones Auto test strip (U) [Mass/Vol]Ordered By: Tank Little on 05-24-2023 Ketones (U) [Mass/Vol] Negative Negative [facility] Leukocytes [#/volume] correc imtiaz for nucleated erythrocytes in Blood by Automated counOrdered By: Tank Little on 05-24-2023 WBC corrected for nucl RBC Auto (Bld) [#/Vol] 8.9 10*3/uL 3.8-11.6 [facility] Lipid Panelon 05-24-2023 Cholesterol [Mass/Vol] 167 mg/dL Normal 140-200 [facility] Comment on above: Result Comment: Chol less than 200 mg/dl low risk Chol 201-239 mg/dl borderline risk Chol 240 mg/dl and greater high risk Performed By: #### U RDS, UA, UHCG #### [facility] [address] [place] [id number] [facility] Cholesterol in HDL [Mass/Vol] 74 mg/dL Normal 23-92 [facility] Comment on above: Result Comment: HDL CHOL ATP-III CLASSIFICATION Cardiovascular Risk HDL > or equal to 60 mg/dL LOW HDL < 40 mg/dL HIGH Performed By: #### U RDS, UA, UHCG #### [facility] [address] Cholesterol.total/Chol esterol in HDL [Mass ratio] 2.3 {ratio} Normal <5.0 [facility] Comment on above: Performed By: #### U EVELYNE, UA, [facility] #### [facility] [address] LDL Cholesterol,Calculated 56 mg/dL Normal 0-100 [facility] Comment on above: Result Comment: LDL ATP III CLASSIFICATION LDL less than 100 mg/dL Optimal LDL 100-129 mg/dL Near or above optimal LDL 130-159 mg/dL Borderline high LDL 160-189 mg/dL High LDL greater than 189 mg/dL Very high Performed By: #### U EVELYNE, UA, [facility] #### [facility] [address] Triglyceride w/Reflex 187 mg/dL High 0-149 [facility] Comment on above: Result Comment: TRIG ATP III CLASSIFICATION TRIG less than 150 mg/dL Normal TRIG 150-199 mg/dL Borderline high TRIG 200-500 mg/dL High TRIG greater than 500 mg/dL Very high Standard traceable to the Center for Disease Conrtrol and Prevention (CDC) test method. Performed By: #### U EVELYNE, UA, [facility] #### [facility] [address] VLDL CHOLESTEROL 37 mg/dL Normal [facility] Comment on above: Performed By: #### U EVELYNE, , [facility] #### [facility] [address] Lymphocytes Auto (Bld) [#/Vo l]Ordered By: Tank Litlte on 05-24-2023 Lymphocytes (Bld) [#/Vol] 2.7 10*3/uL 1.00-4.8 [facility] Lymphocytes/100 WBC Auto (Bl d)Ordered By: Tank Little on 05-24-2023 Lymphocytes/100 WBC (Bld) 30.5 % . [facility] MCH Auto (RBC) [Entitic mass ]Ordered By: Tank Little on 05-24-2023 MCH (RBC) [Entitic mass] 27.7 pg 24.7-34.3 [facility] MCHC Auto (RBC) [Mass/Vol]Or dered By: Tank Little on 05-24-2023 MCHC (RBC) [Mass/Vol] 32.4 g/dL 32.0-35.0 [facility] MCV Auto (RBC) [Entitic vol] Ordered By: Tank Little on 05-24-2023 MCV (RBC) [Entitic vol] 85.6 fL 80-100 [facility] Monocyte distribution width [Entitic volume] in Blood by AutomatedOrdered By: Tank Little on 05-24-2023 Monocyte distribution width Auto (Bld) [Entitic vol] 17.70 % 0.00-20.00 [facility] Monocytes Auto (Bld) [#/Vol] Ordered By: Tank Little on 05-24-2023 Monocytes (Bld) [#/Vol] 0.9 10*3/uL 0.0-0.8 [facility] Monocytes/100 WBC Auto (Bld) Ordered By: Tank Little on 05-24-2023 Monocytes/100 WBC (Bld) 10.0 % . [facility] Neutrophils Auto (Bld) [#/Vo l]Ordered By: Tank Little on 05-24-2023 Neutrophils (Bld) [#/Vol] 4.8 10*3/uL 1.8-7.7 [facility] Neutrophils/100 WBC Auto (Bl d)Ordered By: Tank Little on 05-24-2023 Neutrophils/100 WBC (Bld) 54.4 % . [facility] Nitrite Test strip Ql (U)Ord ered By: Tank Little on 05-24-2023 Nitrite Ql (U) Negative Negative [facility] No Panel InformationOrdered By: Tank Little on 05-24-2023 Estimated GFR (CKD-EPI) > 60.0 mL/Min [facility] Creatinine Clearance (Chem 80.72 [facility] Nucleated erythrocytes [Pres ence] in Blood by Automated countOrdered By: Tank Little on 05-24-2023 Nucleated RBC Auto Ql (Bld) 0.2 /100{WBC} 0-0.5 [facility] Opiates [Presence] in Urine by Screen methodOrdered By: Tank Little on 05-24-2023 Opiates Screen Ql (U) Negative Negative [facility] Phencyclidine Screen Ql (U)O rdered By: Tank Little on 05-24-2023 Phencyclidine Ql (U) Negative Negative [facility] Platelet mean volume Auto (B ld) [Entitic vol]Ordered By: Tank Little on 05-24-2023 Platelet mean volume (Bld) [Entitic vol] 8.4 fL 6.3-10.7 [facility] Platelets Auto (Bld) [#/Vol] Ordered By: Tank Little on 05-24-2023 Platelets (Bld) [#/Vol] 279 10*3/uL 150-450 [facility] Potassium [Moles/volume] in Serum or PlasmaOrdered By: Tank Little on 05-24-2023 Potassium [Moles/Vol] 4.3 mmol/L 3.5-5.1 [facility] Protein Auto test strip (U) [Mass/Vol]Ordered By: Tank Little on 05-24-2023 Protein (U) [Mass/Vol] Negative Negative [facility] Protein [Mass/volume] in Ser um or PlasmaOrdered By: Tank Little on 05-24-2023 Protein [Mass/Vol] 7.3 g/dL 6.4-8.9 [facility] RBC Auto (Bld) [#/Vol]Ordere d By: Tank Little on 05-24-2023 RBC (Bld) [#/Vol] 4.52 10*6/uL 3.60-5.00 [facility] Serum or plasma albumin/glob ulin mass ratioOrdered By: Tank Little on 05-24-2023 Albumin/Globulin [Mass ratio] 1.2 {ratio} [facility] Serum or plasma anion gap de terminationOrdered By: Tank Little 05-24-2023 Anion gap [Moles/Vol] 13.3 mmol/L 6.0-15.0 [facility] Sodium [Moles/volume] in Ser um or PlasmaOrdered By: Tank Little on 05-24-2023 Sodium [Moles/Vol] 139 mmol/L 136-145 [facility] Specific gravity Auto test s trip (U) [Rel density]Ordered By: Tank Little on 05-24-2023 Specific gravity (U) [Rel density] 1.004 1.001-1.030 [facility] Thyroid Stim Hormone w/Rflxo n 05-24-2023 Thyroid Stim Hormone w/Rflx 4.00 u[iU]/mL Normal 0.45-5.33 [facility] Comment on above: Performed By: #### U RDS, UA, UHCG #### [facility] [address] [place] [id number] [place] Urea nitrogen [Mass/volume] in Serum or PlasmaOrdered By: Tank Little on 05-24-2023 Urea nitrogen [Mass/Vol] 22 mg/dL 09-01 [facility] Urinalysison 05-24-2023 Appearance (U) Clear Normal Clear [facility] Comment on above: Order Comment: Name Collection Type:: Clean-Voided Midstream Performed By: #### U RDS, UA, UHCG #### [facility] [address] [place] [address] [place] Bilirubin,Urine Negative Normal Negative [facility] Comment on above: Order Comment: Name Collection Type:: Clean-Voided Midstream Performed By: #### U RDS, UA, UHCG #### [facility] [address] [place] [id number] [place] Color (U) Yellow Normal Yellow [facility] Comment on above: Order Comment: Name Collection Type:: Clean-Voided Midstream Performed By: #### U RDS, UA, UHCG #### [facility] [address] [place] [id number] [place] Glucose Ql (U) Normal Normal Normal [facility] Comment on above: Order Comment: Name Collection Type:: Clean-Voided Midstream Performed By: #### U RDS, UA, UHCG #### [facility] [address] [place] [id number] [place] Ketones Ql (U) Negative Normal Negative [facility] Comment on above: Order Comment: Name Collection Type:: Clean-Voided Midstream Performed By: #### U RDS, UA, UHCG #### [facility] [address] [place] [id number] [place] Leukocyte esterase Test strip Ql (U) Negative Normal Negative [facility] Comment on above: Order Comment: Name Collection Type:: Clean-Voided Midstream Performed By: #### U RDS, UA, UHCG #### [address] Nitrite,Urine Negative Normal Negative [facility] Comment on above: Order Comment: Name Collection Type:: Clean-Voided Midstream Performed By: #### U RDS, UA, UHCG #### [address] Occult Blood,Urine Negative Normal Negative [facility] Comment on above: Order Comment: Name Collection Type:: Clean-Voided Midstream Performed By: #### U RDS, UA, UHCG #### [address] pH (U) 6.5 [pH] Normal 5.0-9.0 [facility] Comment on above: Order Comment: Name Collection Type:: Clean-Voided Midstream Performed By: #### U RDS, UA, UHCG #### [address] Protein,Urine Negative Normal Negative [facility] Comment on above: Order Comment: Name Collection Type:: Clean-Voided Midstream Performed By: #### U RDS, UA, UHCG #### [address] Specificy Egnar,Urine 1.004 Normal 1.001-1.030 [facility] Comment on above: Order Comment: Name Collection Type:: Clean-Voided Midstream Performed By: #### U RDS, UA, UHCG #### [place] [address] [place] Urobilinogen,Urine Normal Normal Normal [facility] Comment on above: Order Comment: Name Collection Type:: Clean-Voided Midstream Performed By: #### U RDS, UA, UHCG #### [place] [address] [place] Urine clarity by refractomet ry automatedOrdered By: Tank Little on 05-24-2023 Clarity Refractometry automated (U) Clear Clear [facility] Urine glucose measurement by automated test strip (mass/volume)Ordered By: Tank Little on 05-24-2023 Glucose Auto test strip (U) [Mass/Vol] Normal mg/dL Normal [facility] Urine hemoglobin detection b y automated test stripOrdered By: Tank Little on 05-24-2023 Hemoglobin Auto test strip Ql (U) Negative Negative [facility] Urine leukocyte esterase det ection by automated test stripOrdered By: Tank Little on 05-24-2023 Leukocyte esterase Auto test strip Ql (U) Negative Negative [facility] Urobilinogen Auto test strip (U) [Mass/Vol]Ordered By: Tank Little on 05-24-2023 Urobilinogen (U) [Mass/Vol] Normal mg/dL Normal [facility] Vitamin D 25 Hydroxy Totalon 05-24-2023 Vitamin D 25 Hydroxy Total 26.8 ng/mL Low 30-100 [facility] Comment on above: Result Comment: KAYLAN MIN D STATUS 25(OH)VITAMIN D RANGE (ng/mL) Deficient <20 Insufficient 20 to <30 Sufficient 30 to 100 Reference: Joseph MF,Barrington NC, Tequila HO, et al. Evaluation,treatment, and prevention of vitamin D deficiency; an Endocrine Society clinical practice guideline. JCEM. 2010; 96(7):1911-30. PERFORMED BY: [place] [address] PATHOLOGIST MACHINIST CLASS B NETO FLORENTINO M.D. Performed By: #### U RDS, UA, UHCG #### [address] WBC Auto (Bld) [#/Vol]Ordere d By: Tank Little on 05-24-2023 WBC (Bld) [#/Vol] 8.9 10*3/uL 3.8-11.6 [facility] pH Auto test strip (U)Ordere d By: Tank Little on 05-24-2023 pH (U) 6.5 [pH] 5.0-9.0 [facility] ANES POSTPROC EVALon 03-25-2 024 ANES POSTPROC EVAL HNO ID: [id number] Author: DAVIN DOWLING MD Service: ? Author Type: Anesthesiologist Type: Anesthesia Postprocedure Evaluation Filed: 05/03/2023 15:27 Note Text: POST ANESTHESIA EVALUATION NOTE : 1975 Procedure Summary Date: 05/03/23 Room / Location: Gastroenterology Anesthesia Start: 1356 Anesthesia Stop: 1413 Procedure: EGD - THERAPEUTIC, EUS, OR TUBE INTERVENTIONS Diagnosis: Dysphagia, unspecified type (Heartburn) Scheduled Providers: Mika Hernandez MD Responsible Provider: Davin Dowling MD Anesthesia Type: MAC ASA Status: 3 Anesthesia Type: MAC Last Vitals Vitals Value Taken Time BP 131/79 05/03/23 1445 Temp 36.2 ?C (97.2 ?F) 05/03/23 1413 HR SpO2 67 05/03/23 1445 Resp 16 05/03/23 1445 SpO2 96 % 05/03/23 1445 Post Anesthesia Patient Status Patient Evaluation: PACU. PACU/ICU Patient Condition: stable. Neurological Status: aware and responsive. Pulmonary Status: breathing comfortably on supplemental oxygen Airway Control: returned to baseline unsupported. Cardiovascular Status: stable. Pain Management: clinically adequate Postoperative Hydration: acceptable. Intraoperative Events: no significant anesthesia events Post Operative Nausea/Vomiting Status: no significant post operative nausea or vomiting Recommendation: continue current plan of care and further care per PACU/ICU/floor team. Anesthesia Observations No Documentation SIGNATURE: Davin Dowling MD PATIENT NAME: Esme Morfin DATE: May 03, 2023 TIME: 3:27 PM CSN: [id number] Normal [facility] ANES PRE-OPon 05-03-2023 ANES PRE-OP HNO ID: [id number] Author: DAVIN DOWLING MD Service: ? Author Type: Anesthesiologist Type: Anesthesia Preprocedure Evaluation Filed: 05/03/2023 13:39 Note Text: ANESTHESIOLOGY DAY OF SURGERY NOTE : 1975 Procedure Information Date/Time: 05/03/23 1400 Scheduled providers: Mika Hernandez MD; Quoc Moncada APRN.PROBATION AGENT; Davin Dowling MD Procedure: EGD - THERAPEUTIC, EUS, OR TUBE INTERVENTIONS Location: Gastroenterology Estimated body mass index is 40.52 kg/m? as calculated from the following: Height as of 02/05/23: 160 cm (5' 3 ). Weight as of 02/05/23: 103.8 kg (228 lb 11.6 oz). Most recent hematocrit and potassium results: Hematocrit 42.3 10/09/2022 Potassium 4.3 03/29/2023 Relevant Problems ANESTHESIA (+) TALIA (obstructive sleep apnea) CARDIO (+) Deep venous thrombosis (HCC) (+) Flushing ENDO (+) Type 2 diabetes mellitus without complication, without long-term current use of insulin (HCC) (+) Type 2 diabetes mellitus without retinopathy (HCC) GI (+) Esophageal reflux NEURO-PSYCH (+) History of cervical dysplasia PULMONARY (+) TALIA (obstructive sleep apnea) (+) Pneumonia Other (+) Rheumatoid arthritis of multiple sites without rheumatoid factor (HCC) I - PHYSICAL EVALUATION AIRWAY Patient intubated: No. Tracheostomy tube not present Mallampati: II. TM distance: >3 FB. Neck ROM: full ROM without neurological symptoms. Mouth opening: adequate. Short neck: no. Thick neck: no Additional exam findings: no II - ANESTHESIA PLAN ASA Score: 3 Anesthetic Plan: MAC NPO Status: adequate Beta Justine Monitoring Plan Monitoring plan: standard ASA. Post Procedure Analgesic Plan Informed Consent Anesthetic risks, benefits, alternatives, personnel and consent discussed: yes. Patient / Responsible Republican agrees to proceed: yes Patient / Surrogate agrees to blood products: Yes Potential Anesthesia issues that may suggest increased risk of complications or contraindication to planned procedure: none. No vitals data found for the desired time range. Outpatient Medications as of 05/03/2023 Medication Sig - dulaglutide (TRULICITY) 3 mg/0.5 mL pen injector Inject 3 mg subcutaneously one time a week. - Blood-Glucose Meter (FREESTYLE LITE METER) monitoring kit Use as instructed. - blood sugar diagnostic (FREESTYLE LITE STRIPS) test strip TEST BLOOD SUGARS 2 TIMES DAILY - busPIRone (BUSPAR) 7.5 mg tablet Take 7.5 mg by mouth three times a day. - escitalopram oxalate (LEXAPRO) 10 mg tablet Take 10 mg by mouth once daily. - Mirtazapine (REMERON) 7.5 mg tablet Take 7.5 mg by mouth daily at bedtime. - rOPINIRole (REQUIP) 0.5 mg tablet Take 0.5 mg by mouth daily at bedtime. - hydrOXYzine pamoate (VISTARIL) 25 mg capsule Take 25 mg by mouth two times a day as needed for anxiety. - ergocalciferol 50,000 unit capsule (VITAMIN D2, DRISDOL) Take 1 capsule by mouth three times a week. - levothyroxine (SYNTHROID) 75 mcg tablet Take 1 tablet by mouth once daily. - tretinoin (RETIN-A) 0.025 % topical cream Apply to affected area daily at bedtime. - Syringe with Needle, Safety (EASY TOUCH SHEATHLOCK SYRG-NDL) 3 mL 25 gauge x 1 syrg Weekly methotrexate injections, monthly vit b12 injections as instructed - cyanocobalamin 1,000 mcg/mL inject 1 milliliter intramuscularly ONCE A MONTH as instructed - diclofenac (VOLTAREN ARTHRITIS PAIN) 1 % topical gel Apply 4 g to affected area four times daily. - CPAP/BIPAP/OTHER Type .CPAPSettings into a note to see current settings/supplies/DME information. - zaleplon (SONATA) 10 mg capsule Take 10 mg by mouth daily at bedtime. Pt takes 10mg qhs - glucagon (BAQSIMI) 3 mg/actuation nasal spray Use 1 [place] in the nose as needed for low blood sugar. May repeat after 15 minutes using a new device if there is no response. - Blood-Glucose Sensor (FREESTYLE NBA 3 SENSOR) vinny Use to check glucose 4 times or more daily. Change sensor every 14 days. - CPAP/BIPAP/OTHER Type .CPAPSettings into a note to see current settings/supplies/DME information. - ALPRAZolam (XANAX) 0.25 mg tablet Take 0.5 tablets by mouth as needed. - meclizine (ANTIVERT) 25 mg tab Take 0.5-1 tablets by mouth three times daily as needed (for dizziness.). - BIPAP Lifetime supplies for BiPAP 12/8 cm H20 including mask, heated tubing, humidity, filters. Dx: G47.33 - promethazine (PHENERGAN) 25 mg tablet Take 25 mg by mouth four times daily as needed. - pantoprazole DR (PROTONIX) 40 mg tablet Take 1 tablet by mouth as needed. No current facility-administered medications on file as of 05/03/2023. I have interviewed and examined the patient. I have reviewed the medical record and/or the pre-anesthesia evaluation, pertinent labs, and test results. This contains updated information obtained within 48 hours of Surgery/Procedure. SIGNATURE: Davin Dowling MD PATIENT NAME: Esme Morfin DATE: May 03, 2023 MRN: [id number] (more content not included)... Normal [facility] EGD Study observation Narrat iveon 05-03-2023 [facility] GLUCOSE, BLOOD (POC)on 05-02 Glucose [Mass/Vol] 111 mg/dL Abnormal 74 - 99 mg/dL [facility] HISTORY PHYSICALon HISTORY PHYSICAL HNO ID: [id number] Author: Mika HERNANDEZ MD Service: Gastroenterology Author Type: Physician Type: H&P Filed: 05/03/2023 14:06 Note Text: HISTORY AND PHYSICAL Esme Morfin presents for endoscopic procedure Current history and physical on file: No Is a new History and Physical required for today's visit? Yes Indication for procedure: Please see procedure's ordering provider for details (encounter/endoscopy order details). PROCEDURE(S) SCHEDULED FOR: Please see consent form for details of endoscopic procedure. BASELINE BEHAVIOR: Calm BASELINE ORIENTATION: Alert and oriented x3 All medications and allergies reviewed: Yes Skin Assessment: Warm dry mucus membranes pink Airway/Respiratory Assessment: Airway: visualization of the uvula- Yes Mouth: opening greater than 2 fingerbreadths- Yes Neck: full range of motion- Yes Breath sounds clear/equal- Yes Cardiac Assessment: Regular rate and rhythm without murmur Abdominal Assessment: Abdomen soft, non-tender, no masses or organomegaly. Sedation Plan: Anesthesia (MAC or GA) Consent: Obtained, please see consent form for details. Additional Comments: None Sex Crimes Detective: Q3 bedside nurse. Gualberto Hernandez MD MSc Advanced Interventional Endoscopy GI/Bariatric Endoscopy DDSI - [facility] Normal [facility] NURSING PROGon 05-03-2023 NURSING PROG HNO ID: [id number] Author: RANDELL MOLINA, JAKY Service: Nursing Author Type: Registered Nurse Type: Nursing Progress Note Filed: 05/03/2023 14:19 Note Text: AMBULATORY PATIENT EDUCATION NOTE TOPIC: GI PROCEDURES: Esophagogastroduodenoscopy (EGD) with or without biopies based on clinical findings, removal of polyps or lesions READINESS TO LEARN INSTRUCTION PROVIDED TO: Patient, readness to learn accessed prior to procedure and Patient and family member COGNITIVE ABILITY: Alert and oriented PTED MOTIVATION TO LEARN: Eager Interested FAMILY SUPPORT: High - Very involved in pt care IPATIENT LEARNS BEST BY: Individual Instruction Written Instruction - Hand-outs Verbal Instruction FACTORS AFFECTING LEARNING: None PHYSICAL LIMITATIONS AFFECTING LEARNING: None LEARNING RESPONSE METHOD OF INSTRUCTION: Individual instruction PATIENT / FAMILY RESPONSE: Verbalizes understanding of: WORSENING CONDITION-Signs and symptoms of a worsening condition that warrant a call to the physician FOLLOW-UP PLAN: Patient instructed to call with any further issues Contact information given. SUPPLEMENTAL MATERIAL: Procedure Discharge Instructions REFERRAL (RECOMMENDATION): None Electronically Signed By: Randell Molina RN [facility] NURSING PROG HNO ID: [id number] Author: MARYCARMEN LUNDBERG RN Service: Nursing Author Type: Registered Nurse Type: Nursing Progress Note Filed: 05/03/2023 13:28 Note Text: PRE OP LEARNING ASSESSMENT PROCEDURE/SURGERY: GI PROCEDURES: EGD READINESS TO LEARN COGNITIVE ABILITY: Alert and oriented MOTIVATION TO LEARN: Interested FAMILY SUPPORT: High - Very involved in pt care PATIENT LEARNS BEST BY: Individual Instruction FACTORS AFFECTING LEARNING: None PHYSICAL LIMITATIONS AFFECTING LEARNING: None Electronically Signed By: Marycarmen Lundberg RN In Department: GASTROENTEROLOGY [facility] [place] 04-30-2023 [place] Telephone ([place]) -- ESME MORFIN ([id number]) 1975 F Date Time Provider Department 04/30/23 KRISTA VELASCO During your visit today, we recorded the following information about you: Montserrat Marquez MA 04/30/2023 3:12 PM Signed Patient was advised of the following: This is a follow up phone call regarding your appointment with Dr Velasco, which you are scheduled to see at [facility] on 05/03/2023. 1) Have you been evaluated and treated by a Pain Management physician currently or in the past? If so, we will need a release of care from your previous physician. 2) Have you had any outside x-rays or MRI's related to the pain you are being seen for? If so, please bring copies to your appointment with you. Also please recall that our physicians will not take over medications. You will need to make sure you have enough pain medications to last until your follow up appointment with your current prescribing physician. Dr. Velasco is primarily an interventional pain management provider, which means, they treat with physical therapy, injections and non-narcotic medications. Any questions or you need to reschedule please call us at [phone]. Left message of NPT Policy Allergies As of Date: 04/30/2023 Noted Allergy Reaction Contrast Dye (IODINE) 11/04/2020 14 - Other: See Comments MOBIC (MELOXICAM) 08/05/2016 5 - Intolerance Comments: GI bleed with transfusion MOTRIN (IBUPROFEN) 11/06/2015 14 - Other: See Comments Comments: GI Bleed NSAIDS (NON-STEROIDAL ANTI-INFLAM*03/05/2016 16 - Unknown PREDNISONE 08/05/2016 15 - Contraindication-Medical [place]* Comments: GI bleed SCOPOLAMINE 12/01/2016 1 - Mental Status Change Comments: Paranoia, confusion, hallucination Date Reviewed: 04/01/2023 Reviewed by: Yoselin Arciniega MA - Fully Assessed Reason for Visit: Appointment [[id number]] Cmt: Pain Prescriptions as of 04/30/2023 - dulaglutide (TRULICITY) 3 mg/0.5 mL pen injector Inject 3 mg subcutaneously one time a week. - Blood-Glucose Meter (FREESTYLE LITE METER) monitoring kit Use as instructed. - blood sugar diagnostic (FREESTYLE LITE STRIPS) test strip TEST BLOOD SUGARS 2 TIMES DAILY - busPIRone (BUSPAR) 7.5 mg tablet Take 7.5 mg by mouth three times a day. - escitalopram oxalate (LEXAPRO) 10 mg tablet Take 10 mg by mouth once daily. - Mirtazapine (REMERON) 7.5 mg tablet Take 7.5 mg by mouth daily at bedtime. - rOPINIRole (REQUIP) 0.5 mg tablet Take 0.5 mg by mouth daily at bedtime. - hydrOXYzine pamoate (VISTARIL) 25 mg capsule Take 25 mg by mouth two times a day as needed for anxiety. - ergocalciferol 50,000 unit capsule (VITAMIN D2, DRISDOL) Take 1 capsule by mouth three times a week. - levothyroxine (SYNTHROID) 75 mcg tablet Take 1 tablet by mouth once daily. - tretinoin (RETIN-A) 0.025 % topical cream Apply to affected area daily at bedtime. - Syringe with Needle, Safety (EASY TOUCH SHEATHLOCK SYRG-NDL) 3 mL 25 gauge x 1 syrg Weekly methotrexate injections, monthly vit b12 injections as instructed - cyanocobalamin 1,000 mcg/mL inject 1 milliliter intramuscularly ONCE A MONTH as instructed - diclofenac (VOLTAREN ARTHRITIS PAIN) 1 % topical gel Apply 4 g to affected area four times daily. - CPAP/BIPAP/OTHER Type .CPAPSettings into a note to see current settings/supplies/DME information. - zaleplon (SONATA) 10 mg capsule Take 10 mg by mouth daily at bedtime. Pt takes 10mg qhs - glucagon (BAQSIMI) 3 mg/actuation nasal spray Use 1 [place] in the nose as needed for low blood sugar. May repeat after 15 minutes using a new device if there is no response. - Blood-Glucose Sensor (FREESTYLE NBA 3 SENSOR) vinny Use to check glucose 4 times or more daily. Change sensor every 14 days. - CPAP/BIPAP/OTHER Type .CPAPSettings into a note to see current settings/supplies/DME information. - ALPRAZolam (XANAX) 0.25 mg tablet Take 0.5 tablets by mouth as needed. - meclizine (ANTIVERT) 25 mg tab Take 0.5-1 tablets by mouth three times daily as needed (for dizziness.). - BIPAP Lifetime supplies for BiPAP 12/8 cm H20 including mask, heated tubing, humidity, filters. Dx: G47.33 - promethazine (PHENERGAN) 25 mg tablet Take 25 mg by mouth four times daily as needed. - pantoprazole DR (PROTONIX) 40 mg tablet Take 1 tablet by mouth as needed. 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 Normal [facility] 04-26-2023 [facility] -- ESME MORFIN ([id number]) 1975 F Date Time Provider Department 04/26/23 SARA STORM [facility] During your visit today, we recorded the following information about you: Sara Storm LSW 04/26/2023 1:42 PM Signed Endocrinology AND Metabolism Social Work Progress Note Provider Action / FYI gas utility worker submits a licensure complaint via the [employer] Board's online portal. gas utility worker will keep Patient updated on progress. Esme Morfin [id number] Type of Contact: telephone Endocrine VACUUM COOKER OPERATOR Referral Reason: Returning Patient's Phone Call or General Community Resources Contact Made?: YES- gas utility worker confirmed patient's Name, , and Address, Note/Intervention: Patient returns social media specialist's call on , 04/21 and leaves a voicemail. gas utility worker calls Patient back. gas utility worker receives consent from Patient to submit the report to the Counselor, Social Work, Marriage AND Family Therapist Board. Patient reports she has the Ring camera and will install it soon. gas utility worker confirms it is still okay to use Patient's name in the report and Patient confirms. gas utility worker submits the following text in the [facility] complaint [facility]: Esme Shelbie sent me a MyChart message on 03/24/2023, with a question about how to handle a paper bag press operator that was stalking and harassing her. I called Esme on 03/24/2023 to learn about what happened. Esme reports on 03/08/2023, she received a phone call from Tip Garrett ( , Skiver Uppers Or Linings: [id number], Sports Reporter Trainee: [id number], Certified Peer Recovery Supporter: [id number]). Esme states Tip told her he got her information from the [facility] in [place] and offered Esme holistic and gilma-based practices. Esme expresses she felt a red flag because the [facility] did not have consent to release her information and Tip kept pressuring her to come over and fill out paperwork, pray with her, and brittany her home. Esme states Tip emailed her paperwork on 03/08/2023. Esme reports Tip continued to call and leave her voicemails about coming over and Esme did not reply. Esme explains she went into an inpatient detox program on 03/10/2023 and indicates Tip called her and left a voicemail on 03/10/2023 (I could not attach the M4A file within the portal, but I can send it to you if it would be helpful). Tip then sent Esme text messages which made her uncomfortable (attached). Esme states Tip asked to be put down as her emergency contact at the inpatient detox program and Esme declined. Esme reports Tip told her he would be waiting for her when she got out of detox. Esme reports Tip called her on Day 5 (03/15/2023) and he thought Esme was still in detox, but she was home. Esme explains Tip asked her why didn't you wait for me so I could come and get you? Esme reports Tip became upset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 bedtime. - rOPINIRole (REQUIP) 0.5 mg tablet Take 0.5 mg by mouth daily at bedtime. - hydrOXYzine pamoate (VISTARIL) 25 mg capsule Take 25 mg by mouth two times a day as needed for anxiety. - ergocalciferol 50,000 unit capsule (VITAMIN D2, DRISDOL) Take 1 capsule by mouth three times a week. - levothyroxine (SYNTHROID) 75 mcg tablet Take 1 tablet by mouth once daily. - tretinoin (RETIN-A) 0.025 % topical cream Apply to affected area daily at bedtime. - Syringe with Needle, Safety (EASY TOUCH SHEATHLOCK SYRG-NDL) 3 mL 25 gauge x 1 syrg Weekly methotrexate injections, monthly vit b12 injections as instructed - cyanocobalamin 1,000 mcg/mL inject 1 milliliter intramuscularly ONCE A MONTH as instructed - diclofenac (VOLTAREN ARTHRITIS PAIN) 1 % topical gel Apply 4 g to affected area four times daily. - CPAP/BIPAP/OTHER Type .CPAPSettings into a note to see current settings/supplies/DME information. - zaleplon (SONATA) 10 mg capsule Take 10 mg by mouth daily at bedtime. Pt takes 10mg qhs - glucagon (BAQSIMI) 3 mg/actuation nasal spray Use 1 [place] in the nose as needed for low blood sugar. May repeat after 15 minutes using a new device if there is no response. - Blood-Glucose Sensor (Best Before MediaSTYLE NBA 3 SENSOR) vinny Use to check glucose 4 times or more daily. Change sensor every 14 days. - CPAP/BIPAP/OTHER Type .CPAPSettings into a note to see current settings/supplies/DME information. - ALPRAZolam (XANAX) 0.25 mg tablet Take 0.5 tablets by mouth as needed. - meclizine (ANTIVERT) 25 mg tab Take 0.5-1 tablets by mouth three times daily as needed (for dizziness.). - (more content not included)... Normal [facility] 25(OH)D3 Praveen 2023 25-hydroxyvitamin D3 [Mass/Vol] 20.0 ng/mL Low 31.0-80.0 [facility] Comment on above: Order Comment: Speci men Type: BLOOD SPECIMEN Ordering Facility: External Submitter Address: , , Result Comment: Clas sification of 25 [place] Vitamin D status: Deficiency/Insufficiency: < or = 30 ng/ml. Sufficiency/Optimal Levels: 31-80 ng/mL Toxicity: > 100 ng/mL. Test performed by chemiluminescent immunoassay. Performed By: #### 3 016-3, 07558-2 #### [facility] CLIA [id number] [address] [place] [address] [place] Comprehensive metabolic 2000 panelon 03-29-2023 Albumin [Mass/Vol] 4.1 g/dL Normal 3.9-4.9 [facility] Comment on above: Order Comment: Speci men Type: BLOOD SPECIMEN Ordering Facility: External Submitter Address: , , Performed By: #### 3 016-3, #### [facility] CLIA [id number] [address] [place] [address] [place] ALP [Catalytic activity/Vol] 133 U/L High 34-123 [facility] Comment on above: Order Comment: Speci men Type: BLOOD SPECIMEN Ordering Facility: External Submitter Address: , , Performed By: #### 3 016-3, #### [facility] CLIA [id number] [address] [place] [address] [place] ALT [Catalytic activity/Vol] 19 U/L Normal 7-38 [facility] Comment on above: Order Comment: Speci men Type: BLOOD SPECIMEN Ordering Facility: External Submitter Address: , , Performed By: #### 3 016-3, #### [facility] CLIA [id number] [address] [place] [address] [place] Anion gap [Moles/Vol] 12 mmol/L Normal 9-18 [facility] Comment on above: Order Comment: Speci men Type: BLOOD SPECIMEN Ordering Facility: External Submitter Address: , , Performed By: #### 3 016-3, #### [facility] CLIA [id number] [address] [place] [address] [place] AST [Catalytic activity/Vol] 25 U/L Normal 13-35 [facility] Comment on above: Order Comment: Speci men Type: BLOOD SPECIMEN Ordering Facility: External Submitter Address: , , Performed By: #### 3 016-3, #### [facility] CLIA [id number] [address] [place] [address] [place] Bilirubin [Mass/Vol] 0.3 mg/dL Normal 0.2-1.3 [facility] Comment on above: Order Comment: Speci men Type: BLOOD SPECIMEN Ordering Facility: External Submitter Address: , , Performed By: #### 3 -3, #### [facility] CLIA [id number] [address] [place] [address] [place] Calcium [Mass/Vol] 9.4 mg/dL Normal 8.5-10.2 [facility] Comment on above: Order Comment: Speci men Type: BLOOD SPECIMEN Ordering Facility: External Submitter Address: , , Performed By: #### 3 , #### [facility] CLIA [id number] [address] [place] [address] [place] Chloride [Moles/Vol] 102 mmol/L Normal 97-105 [facility] Comment on above: Order Comment: Speci men Type: BLOOD SPECIMEN Ordering Facility: External Submitter Address: , , Performed By: #### 3 , #### [facility] CLIA [id number] [address] [place] [address] [place] CO2 [Moles/Vol] 24 mmol/L Normal 22-30 [facility] Comment on above: Order Comment: Speci men Type: BLOOD SPECIMEN Ordering Facility: External Submitter Address: , , Performed By: #### 3 016-3, #### [facility] CLIA [id number] [address] [place] [address] [place] Creatinine [Mass/Vol] 1.02 mg/dL High 0.58-0.96 [facility] Comment on above: Order Comment: Speci men Type: BLOOD SPECIMEN Ordering Facility: External Submitter Address: , , Performed By: #### 3 , #### [facility] CLIA [id number] [address] [place] [address] [place] Creatinine and Glomerular filtration rate.predicted panel (S/P/Bld) 68 mL/min/1.73m??? Normal >=60 [facility] Comment on above: Order Comment: Panfilo horne Type: BLOOD SPECIMEN Ordering Facility: External Submitter Address: , , Result Comment: Floresita mated Glomerular Filtration Rate (eGFR) is calculated using the 2020 CKD-EPI creatinine equation. This equation utilizes serum creatinine, sex, and age as parameters. The creatinine assay has traceable calibration to isotope dilution-mass spectrometry. Refer to KDIGO guidelines for clinical interpretation. In patients with unstable renal function, e.g. those with acute kidney injury, the eGFR may not accurately reflect actual GFR. Performed By: #### 3 016-3, 66075-0 #### [facility] CLIA [id number] [facility] [place] [address] [place] Glucose [Mass/Vol] 101 mg/dL High 74-99 [facility] Comment on above: Order Comment: Panfilo horne Type: BLOOD SPECIMEN Ordering Facility: External Submitter Address: , , Result Comment: The [place] Diabetes Association (ADA) provides guidance for cutoff values for fasting glucose and random glucose. The ADA defines fasting as no caloric intake for at least 8 hours. Fasting plasma glucose results between 100 to 125 mg/dL indicate increased risk for diabetes (prediabetes). Fasting plasma glucose results greater than or equal to 126 mg/dL meet the criteria for diagnosis of diabetes. In the absence of unequivocal hyperglycemia, results should be confirmed by repeat testing. In a patient with classic symptoms of hyperglycemia or hyperglycemic crisis, random plasma glucose results greater than or equal to 200 mg/dL meet the criteria for diagnosis of diabetes. Reference: Standards of Medical Care in Diabetes 2016, [place] Diabetes Association. Diabetes Care. 2016.39(Suppl 1). Performed By: #### 3 016-3, 15697-0 #### [facility] CLIA [id number] [address] [place] [id number] [place] Potassium [Moles/Vol] 4.3 mmol/L Normal 3.7-5.1 [facility] Comment on above: Order Comment: Speci men Type: BLOOD SPECIMEN Ordering Facility: External Submitter Address: , , Performed By: #### 3 016-3, #### [facility] CLIA [id number] [address] [place] [address] [place] Protein [Mass/Vol] 7.3 g/dL Normal 6.3-8.0 [facility] Comment on above: Order Comment: Speci men Type: BLOOD SPECIMEN Ordering Facility: External Submitter Address: , , Performed By: #### 3 , #### [facility] CLIA [id number] [address] [place] [address] [place] Sodium [Moles/Vol] 138 mmol/L Normal 136-144 [facility] Comment on above: Order Comment: Speci men Type: BLOOD SPECIMEN Ordering Facility: External Submitter Address: , , Performed By: #### 3 016, #### [facility] CLIA [id number] [address] [place] [address] [place] Urea nitrogen [Mass/Vol] 14 mg/dL Normal 7-21 [facility] Comment on above: Order Comment: Speci men Type: BLOOD SPECIMEN Ordering Facility: External Submitter Address: , , Performed By: #### 3 016-3, #### [facility] CLIA [id number] [address] [place] [address] [place] HbA1c (Bld)on 03-29-2023 Average glucose Estimated from glycated hemoglobin (Bld) [Mass/Vol] 123 mg/dL Normal [facility] Comment on above: Order Comment: Speci men Type: BLOOD SPECIMEN Ordering Facility: [facility] Address: [address] [place] [address] Result Comment: eAG: (Estimated average glucose) is a calculated value from HgbA1c and is new accounts banking representative of the average blood glucose level in the last 2-3 month period. Performed By: #### 5 5454-3 #### [facility] CLIA [id number] [address] [place] [address] [place] HbA1c (Bld) [Mass fraction] 5.9 % High 4.3-5.6 [facility] Comment on above: Order Comment: Specbecky horne Type: BLOOD SPECIMEN Ordering Facility: [facility] Address: [address] [place] [address] Result Comment: [place] Diabetes Association guidelines indicate that patients with HgbA1c in the range 5.7-6.4% are at increased risk for development of diabetes, and intervention by lifestyle modification may be beneficial. HgbA1c greater or equal to 6.5% is considered diagnostic of diabetes. Performed By: #### 5 5454-3 #### [facility] CLIA [id number] [address] [place] [address] [place] TSH SerPl-aCncon 03-29-2023 TSH Qn 2.550 m[IU]/L Normal 0.270-4.200 [facility] Comment on above: Order Comment: Panfilo horne Type: BLOOD SPECIMEN Ordering Facility: External Submitter Address: , , Result Comment: If t he patient is , TSH reference range varies by gestational period: First Trimester (weeks 9-12): 0.180-2.990 mIU/L Second Trimester: 0.110-3.980 mIU/L Third Trimester: 0.480-4.710 mIU/L Rohit Mares et al. A Practical Approach for the Verifications and Determination of Site- and Trimester-Specific Reference Intervals for Thyroid Function tests in . Thyroid, 2019:29:3:412-420. Hany E, et al. 2017 Guidelines of the [place] Thyroid Association for the Diagnosis and Management of Thyroid Disease during and the . Thyroid, 2017:27:3:315-389. Performed By: #### 3 016-3, 14362-9 #### [facility] CLIA [id number] [address] [place] [address] [place] Ambulatory Visit Summaryon 0 03-26-2023 Ambulatory Visit Summary ESME MORFIN :1975 Visit Date:03/26/2023 Ambulatory Visit Instructions Your Diagnosis Acute bronchitis Rib pain on left side Morbidly obese Your Care Team Attending Physician - MARIYA PINA, JUAN Primary Care Physician - Farhat Pineda MD This Is Your Medications List albuterol (albuterol HFA 90 mcg/inh MDI) alprazolam (alprazolam 0.25 mg Tab) baclofen (baclofen 10 mg Tab) brompheniramine/dextrometh orphan/PSE (Bromfed DM oral syrup) cyanocobalamin (cyanocobalamin 1000 mcg/mL Inj) ergocalciferol (Vitamin D 50,000 intl units (1.25 mg) oral capsule) hydrOXYzine (Vistaril 25 mg Cap) levofloxacin (levofloxacin 750 mg Tab) phentermine (phentermine 37.5 mg Tab) promethazine (promethazine 25 mg Tab) Procedures Performed Cystoscopy (06/30/2017), Bilateral tubal ligation, Cholecystectomy, Gastric bypass, GI series, H/O thyroidectomy., Hernia repair, Hernia repair, stomach surgeries, multipule. Discharge Vitals Temperature (Oral) 36.7 ?C Heart Rate (Peripheral) 95 Blood Pressure 116/84 Medications What How Much When Why Instructions New baclofen (baclofen 10 mg Tab) 1 Tablets By Mouth 3 times a day Rib pain on left side Duration: 7 Days Pickup at [facility] New brompheniramine/ dextromethorphan/ PSE (Bromfed DM oral syrup) 5 Milliliter By Mouth 4 times a day as needed for for cough and congestion Acute bronchitis Duration: 7 Days Pickup at [facility] Unchanged albuterol (albuterol HFA 90 mcg/ inh MDI) 2 Puffs Inhalation 4 times a day Unchanged alprazolam (alprazolam 0.25 mg Tab) 1 Tablets By Mouth 3 times a day as needed for as needed for anxiety Unchanged cyanocobalamin (cyanocobalamin 1000 mcg/ mL Inj) 1 Milliliter Intramuscular Once a month Unchanged ergocalciferol (Vitamin D 50,000 intl units (1.25 mg) oral capsule) 1 Capsules By Mouth Every day Unchanged hydrOXYzine (Vistaril 25 mg Cap) 1-2 cap(s) By Mouth 4 times a day as needed for as needed for anxiety Unchanged levofloxacin (levofloxacin 750 mg Tab) 1 Tablets By Mouth Every day for 10 days Unchanged phentermine (phentermine 37.5 mg Tab) 0.5 Tablets By Mouth 2 times a day Unchanged promethazine (promethazine 25 mg Tab) 1 Tablets By Mouth 2 times a day Pharmacy Information [facility]: [address] [place], [place] [id number] [phone] Medications and Immunizations Administered Not Given influenza virus vaccine, inactivated, Postpone due to refusal SARS-CoV-2 mRNA (tozinameran 5y-11y) vac, Postpone due to refusal Allergies Contrast Dye (renal failure) Motrin (GI bleeding) NSAIDs (d/t surgery) Scopalamine Hydrobromide Trihydrate (per pt) metFORMIN (Upset stomach) Problems Ongoing - Any problem that you are currently receiving treatment for. Acute bronchitis Anemia Anxiety Aortic insufficiency Chronic GERD Fibromyalgia H/O Diverticulitis H/O: pneumonia History of gastrointestinal bleeding Mitral valve regurgitation Morbidly obese Obesity 10-AUG-2013 12:37:00<$> Rib pain on left side Sleep apnea thyroid cancer/thyroidectomy Type 2 diabetes mellitus Historical - Any problem that you are no longer receiving treatment for. Acute anterior myocardial infarction Acute GI bleeding Anemia due to acute blood loss Bronchitis, chronic Cellulitis Cellulitis and abscess of right lower extremity DVT (deep venous thrombosis) gallbladder surgery Hx of heart catheterization Kidney disease, medullary sponge UT - myocardial infarction scopes Thyroid cancer Patient Survey You may receive a survey via text or e-mail asking about your office visit. Please share your experience with us by completing your survey. We appreciate your feedback and thank you for choosing us for your care. [facility] [place] 03-26-2023 [place] Telephone ([facility]) -- ESME MORFIN ([id number]) 1975 F Date Time Provider Department 03/26/23 SARA STORM [facility] During your visit today, we recorded the following information about you: Sara Storm LSW 04/08/2023 8:55 AM Addendum Sensitive Note Endocrinology AND Metabolism Social Work Progress Note Provider Action / FYI gas utility worker and Patient to co-create a report [facility]. Esmetavares Morfin [phone] Type of Contact: telephone Endocrine [facility] Referral Reason: Mental Health Resources Contact Made?: YES- gas utility worker confirmed patient's Name, , and Address, Note/Intervention: gas utility worker calls Patient to discuss being a mandated solar installation technician to the [place] Counselor, Sports Reporter, and Marriage AND Family Therapist Board for licensees acting unethically. Patient reports she has not heard from Tip Garrett and she looked at the resources social media specialist sent, but has not thoroughly reviewed them. gas utility worker and Patient discuss text messages sent via [employer] message from Patient. gas utility worker advises Patient about social media specialist being a mandated solar installation technician to the CSFT Board for licensees acting unethically. gas utility worker explains to Patient she will need to report Tip to the Board and asks Patient for her assistance co-creating the report. Patient agrees to help social media specialist with the report and clarifies the following information: - gas utility worker may include the texts from [employer] in the report to the Board. - Patient first heard from Tip on 03/08 via phone call and he sent her an email with forms. Tip followed-up on this email on 03/15. - Patient received her first text from Tip on 03/10, the same day she went to detox. Patient reports Tip also called her on 03/10. - Patient confirms she goes to the [facility] in [place]. Patient asks that social media specialist not disclose her name in the report and social media specialist agrees. gas utility worker explains that social media specialist's name will be on the report and that if the Board has any questions, they will reach out to social media specialist and not Patient. gas utility worker confirms she will not make the report until she confers with Patient. Patient indicates she did not get a copy of the police report [facility] told her about. gas utility worker suggests that Patient file her own police report. gas utility worker advises Patient not to respond to any messages from Tip and to call 911 and not answer the door if he comes to Patient's home. gas utility worker explains she will send Patient a draft statement through [employer] for her review. gas utility worker and Patient agree to stay in touch about the statement and next steps. [facility] referral placed: No Signature: Sara Storm MSW, VACUUM COOKER OPERATOR Patient Name: Esme Morfin Date: 03/26/2023 Time: 2:19 PM Pager/Contact #: [phone] During this patient contact I spent approximately 80 minutes in reviewing the patient's chart and counseling regarding community resources and coordinating care. Allergies As of Date: 03/26/2023 Noted Allergy Reaction Contrast Dye (IODINE) 11/04/2020 14 - Other: See Comments MOBIC (MELOXICAM) 08/05/2016 5 - Intolerance Comments: GI bleed with transfusion MOTRIN (IBUPROFEN) 11/06/2015 14 - Other: See Comments Comments: GI Bleed NSAIDS (NON-STEROIDAL ANTI-INFLAM*03/05/2016 16 - Unknown PREDNISONE 08/05/2016 15 - Contraindication-Medical Parnell* Comments: GI bleed SCOPOLAMINE 12/01/2016 1 - Mental Status Change Comments: Paranoia, confusion, hallucination Date Reviewed: 03/22/2023 Reviewed by: Adilene Ordoñez APRN.DRILL PRESS HAND - Fully Assessed Reason for Visit: Ambulatory Social Work [4191] Prescriptions as of 04/08/2023 - dulaglutide (TRULICITY) 1.5 mg/0.5 mL pen injector Inject 1.5 mg subcutaneously one time a week. - Blood-Glucose Meter (FREESTYLE LITE METER) monitoring kit Use as instructed. - blood sugar diagnostic (FREESTYLE LITE STRIPS) test strip TEST BLOOD SUGARS 2 TIMES DAILY - busPIRone (BUSPAR) 7.5 mg tablet Take 7.5 mg by mouth three times a day. - escitalopram oxalate (LEXAPRO) 10 mg tablet Take 10 mg by mouth once daily. - Mirtazapine (REMERON) 7.5 mg tablet Take 7.5 mg by mouth daily at bedtime. - rOPINIRole (REQUIP) 0.5 mg tablet Take 0.5 mg by mouth daily at bedtime. - hydrOXYzine pamoate (VISTARIL) 25 mg capsule Take 25 mg by mouth two times a day as needed for anxiety. - ergocalciferol 50,000 unit capsule (VITAMIN D2, DRISDOL) Take 1 capsule by mouth three times a week. - levothyroxine (SYNTHROID) 75 mcg tablet Take 1 tablet by mouth once daily. - tretinoin (RETIN-A) 0.025 % topical cream Apply to affected area daily at bedtime. - Syringe with Needle, Safety (EASY TOUCH SHEATHLOCK SYRG-NDL) 3 mL 25 gauge x 1 syrg Weekly methotrexate injections, monthly vit b12 injections as instructed - cyanocobalamin (more content not included)... Normal [facility] Medicine Office/Clini c Noteon 03-26-2023 Family Medicine Office/Clinic Note Chief Complaint cough and left abd pain HPI Staff 47 year old female here for cough x 1 week- has been on Zpack for cough. Also has left side abd pain that radiates up into left chest. Pain started this morning and pt states left side of abd feels swollen. Hx recent constipation. History of Present Illness Reviewed and agree with above documented HPI by bilingual medical receptionist. Portions of this record may have been created with voice recognition artificial intelligence software, specifically Teburu, [employer] and or Woop!Wear. Substitutions may have occurred due to the inherent limitations of voice recognition and artificial intelligence software. Patient is a 47-year-old female who presented to critical access hospital care, for ongoing productive cough, with a history of bronchitis with left-sided rib pain. Patient states she has been coughing for about a week, past Wednesday about 4 days ago she saw her primary care doctor, put on Z-Amor for the cough, states the cough has improved but continues to be nonproductive, worse at night, this is left-sided rib pain worse when she coughs, certain movement, does not radiate into her chest wall or to her sternum, does not radiate to left upper back or the remaining ribs. Patient states she been waking up with muscle tightness and spasms, tested herself for COVID-19 was negative, not concerned about having any influenza, states she does not have any influenza symptoms. Patient denies any injuries, trauma, fevers, chills, nausea or vomiting, upper respiratory infection worsening cough productive cough, difficulty swallowing, chest pain, shortness of breath, dyspnea on exertion, or weakness. Review of Systems PHQ Score Initial Depression Screen Score: 0 SCORE Physical Exam Vitals & Measurements T: 36.7 ?C(Oral) HR: 95(Peripheral) BP: 116/84 SpO2: 98% General: Well developed, well nourished, in no acute distress. Patient does not appear ill or septic. No respiratory disorders noted. Answers questions appropriately and in complete sentences, and follows commands appropriately. Head: Normocephalic/atraumatic. No upper respiratory infection. Eyes: Pupils equal, round, and reactive to light. Conjunctivae and sclerae normal, Ears: Bilateral TMs and bilateral external canals are within normal limits. Hearing is intact. Nose: No deformity, discharge, inflammation, or lesions Mouth: Mucous membranes moist. Normal oropharynx, and posterior pharynx without erythema, lesions, or exudates. No trismus. No difficulty swallowing. Neck: Neck supple. No masses or palpable cervical nodes. Trachea midline. Lungs: Normal respiratory effort and clear to auscultation throughout, no wheezing, rales, crackles, rhonchi, or decreased breath sounds. Cardio: regular rate and rhythm, no murmur. left lower rib pain reproducible on examination. No anterior chest wall, sternum, right upper or right lower rib pain on examination. Chest rise symmetrical. The remaining chest wall exam is within normal limits. Pulses: Normal capillary refill Abdomen: Soft, nondistended, normal bowel sounds all 4 quadrants. No acute abdomen, left or right CVA tenderness, suprapubic pressure, or lumbar back pain. Extremity: Patient is able to move all 4 extremities equally without any pain or weakness. Neurologic: Grossly normal Skin: No rashes, ulcerations, or suspicious lesions Lymph Nodes: no lad Mental Status: alert, active Assessment/Plan Chest imaging for any possible acute or thoracic process. No swabs or breathing treatments are indicated at this time. Reassess patient after returning for imaging, states she has no worsening cough or wheezing. Discussed with patient imaging findings read by the radiologist: No acute radiographic abnormality . 47-year-old female presented to [facility], an acute care hospital, for acute bronchitis left-sided rib pain, secondary to coughing spells, currently on Zithromax for her bronchitis, provided by her primary care doctor, patient did not appear ill or septic, no respiratory distress, no difficulty swallowing. Patient was given a prescription for Bromfed and Baclofen, and a work excuse note, follow-up with primary care provider. 1. Acute bronchitis (J20.9: Acute bronchitis, unspecified) See above Ordered: brompheniramine/dextrometh orphan/PSE, 5 mL, Oral, QID for cough and congestion for 7 day(s), 140 mL, Refill(s) 0, [id number], 157.7, cm, 01/14/23 10:54:00 EST, Height/Length Dosing, 100.9, kg, 01/14/23 10:54:00 EST, Weight Dosing 2. Rib pain on left side (R07.81: Pleurodynia) See above Ordered: baclofen, 10 mg = 1 tab(s), Oral, TID, X 7 day(s), # 21 tab(s), Refills(s) 0, Pharmacy: [id number], 157.7, cm, 01/14/23 10:54:00 EST, Height/Length Dosing, 100.9, kg, 01/14/23 10:54:00 EST, Weight Dosing 3. Morbidly obese (E66.01: Morbid (severe) obesity due to excess calories) The standard range for ages 18 and older is >=18.5 and < 25 kg/m2. Your BMI today was above this ra (more content not included)... Normal [facility] Comment on above: Result Comment: Elec tronically Signed By: MARIYA PINA, JUAN\.br\Date and Time Signed: 03/26/23 10:54 EST Patient Educationon 03-26-19 Patient Education Nutrition BMI for Adults What is BMI? Body mass index (BMI) is a number that is calculated from a person's weight and height. BMI can help estimate how much of a person's weight is composed of fat. BMI does not measure body fat directly. Rather, it is an alternative to procedures that directly measure body fat, which can be difficult and expensive. BMI can help identify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 methotrexate injections, monthly vit b12 injections as instructed - cyanocobalamin 1,000 mcg/mL inject 1 milliliter intramuscularly ONCE A MONTH as instructed - diclofenac (VOLTAREN ARTHRITIS PAIN) 1 % topical gel Apply 4 g to affected area four times daily. - CPAP/BIPAP/OTHER Type .CPAPSettings into a note to see current settings/supplies/DME information. - zaleplon (SONATA) 10 mg capsule Take 10 mg by mouth daily at bedtime. Pt takes 10mg qhs - glucagon (BAQSIMI) 3 mg/actuation nasal spray Use 1 [place] in the nose as needed for low blood sugar. May repeat after 15 minutes using a new device if there is no response. - Blood-Glucose Sensor (FREESTYLE NBA 3 SENSOR) vinny Use to check glucose 4 times or more daily. Change sensor every 14 days. - CPAP/BIPAP/OTHER (more content not included)... Normal [facility] B-Type Natriuretic Peptideon 02-08-2023 Natriuretic peptide B (Bld) [Mass/Vol] 39.0 pg/mL Normal 5-100 [facility] Comment on above: Result Comment: PERF ORMED BY: [place] [address] PATHOLOGIST MACHINIST CLASS B NETO FLORENTINO M.D. Performed By: #### U RDS, UA, UHCG #### [address] Basic Metabolic Panelon Anion gap [Moles/Vol] 14.9 mmol/L Normal 6.0-15.0 [facility] Comment on above: Performed By: #### U RDS, UA, UHCG #### [address] Calcium [Mass/Vol] 9.7 mg/dL Normal 8.6-10.3 [facility] Comment on above: Performed By: #### U RDS, UA, UHCG #### [address] Chloride [Moles/Vol] 103 mmol/L Normal 98-107 [facility] Comment on above: Performed By: #### U RDS, UA, UHCG #### [address] CO2 [Moles/Vol] 22.9 mmol/L Normal 21.0-31.0 [facility] Comment on above: Performed By: #### U RDS, UA, UHCG #### [address] Creatinine [Mass/Vol] 1.20 mg/dL Normal 0.60-1.20 [facility] Comment on above: Performed By: #### U RDS, UA, UHCG #### [place] [address] [place] Creatinine Clr Calc Pharmacy 63.97 Normal [facility] Comment on above: Result Comment: PERF ORMED BY: [place] [address] PATHOLOGIST MACHINIST CLASS B NETO FLORENTINO M.D. Performed By: #### U RDS, UA, UHCG #### [address] GFR/1.73 sq M.predicted MDRD (S/P/Bld) [Vol rate/Area] 55.490 mL/min/{1.73_m2} Normal [facility] Comment on above: Performed By: #### U RDS, UA, UHCG #### [address] Glucose [Mass/Vol] 107 mg/dL High 70-100 [facility] Comment on above: Result Comment: [facility] Glucose Reference Range is dependent on time and content of last meal. Glucose of more than 200 mg/dL in a nonstressed, ambulatory subject supports the diagnosis of Diabetes Mellitus. ADA recommended reference range Performed By: #### U RDS, UA, UHCG #### [address] Potassium [Moles/Vol] 3.8 mmol/L Normal 3.5-5.1 [facility] Comment on above: Performed By: #### U RDS, UA, UHCG #### [place] [address] [place] Sodium [Moles/Vol] 137 mmol/L Normal 136-145 [facility] Comment on above: Performed By: #### U RDS, UA, UHCG #### [address] Urea nitrogen [Mass/Vol] 16 mg/dL Normal 7-25 [facility] Comment on above: Performed By: #### U RDS, UA, UHCG #### [address] Complete Blood Count Auto Di ffon 02-08-2023 Basophils (Bld) [#/Vol] 0.1 10*3/uL Normal 0.0-0.2 [facility] Comment on above: Result Comment: PERF ORMED BY: [place] [address] PATHOLOGIST MACHINIST CLASS B NETO FLORENTINO M.D. Performed By: #### U RDS, UA, UHCG #### [address] Basophils/100 WBC (Bld) 0.9 % Normal . [facility] Comment on above: Performed By: #### U RDS, UA, UHCG #### [address] Eosinophils (Bld) [#/Vol] 0.2 10*3/uL Normal 0.0-0.45 [facility] Comment on above: Performed By: #### U RDS, UA, UHCG #### [address] Eosinophils/100 WBC (Bld) 2.2 % Normal . [facility] Comment on above: Performed By: #### U RDS, UA, UHCG #### [address] Erythrocyte distribution width (RBC) [Ratio] 15.1 % Normal 11.9-15.3 [facility] Comment on above: Performed By: #### U RDS, UA, UHCG #### [address] Hematocrit (Bld) [Volume fraction] 42.8 % Normal 34.0-46.4 [facility] Comment on above: Performed By: #### U RDS, UA, UHCG #### [address] Hemoglobin (Bld) [Mass/Vol] 14.3 g/dL Normal 11.8-15.4 [facility] Comment on above: Performed By: #### U RDS, UA, UHCG #### [place] [address] [place] Lymphocytes (Bld) [#/Vol] 3.9 10*3/uL Normal 1.00-4.8 [facility] Comment on above: Performed By: #### U EVELYNE UA, [facility] #### [address] Lymphocytes/100 WBC (Bld) 37.6 % Normal . [facility] Comment on above: Performed By: #### U EVELYNE UA, [facility] #### [address] MCH (RBC) [Entitic mass] 29.0 pg Normal 24.7-34.3 [facility] Comment on above: Performed By: #### U EVELYNE , [facility] #### [address] MCV (RBC) [Entitic vol] 86.5 fL Normal 80-100 [facility] Comment on above: Performed By: #### U EVELYNE UA, [facility] #### [address] Mean Corpuscular HGB Conc 33.5 g/dL Normal 32.0-35.0 [facility] Comment on above: Performed By: #### U EVELYNE UA, [facility] #### [address] Monocytes (Bld) [#/Vol] 0.9 10*3/uL High 0.0-0.8 [facility] Comment on above: Performed By: #### U EVELYNE UA, [facility] #### [place] [address] [place] Monocytes/100 WBC (Bld) 18.92 % Normal 0.00-20.00 [facility] Comment on above: Performed By: #### U EVELYNE UA, [facility] #### [address] Monocytes/100 WBC (Bld) 8.7 % Normal . [facility] Comment on above: Performed By: #### U EVELYNE UA, [facility] #### [address] Neutrophils (Bld) [#/Vol] 5.2 10*3/uL Normal 1.8-7.7 [facility] Comment on above: Performed By: #### U RDS, UA, UHCG #### [address] Neutrophils/100 WBC (Bld) 50.6 % Normal . [facility] Comment on above: Performed By: #### U RDS, UA, UHCG #### [address] NRBC% 0.1 /100{WBC} Normal 0-0.5 [facility] Comment on above: Performed By: #### U RDS, UA, UHCG #### [address] Platelet mean volume (Bld) [Entitic vol] 7.8 fL Normal 6.3-10.7 [facility] Comment on above: Performed By: #### U RDS, UA, UHCG #### [address] Platelets (Bld) [#/Vol] 272 10*3/uL Normal 150-450 [facility] Comment on above: Performed By: #### U RDS, UA, UHCG #### [address] RBC (Bld) [#/Vol] 4.95 10*6/uL Normal 3.60-5.00 [facility] Comment on above: Performed By: #### U RDS, UA, UHCG #### [place] [address] [place] WBC (Bld) [#/Vol] 10.4 10*3/uL Normal 3.8-11.6 [facility] Comment on above: Performed By: #### U RDS, UA, UHCG #### [address] Creatine Kinaseon 02-08-2023 CK [Catalytic activity/Vol] 39 U/L Normal 30-223 [facility] Comment on above: Performed By: #### U RANDI STUBBS, [facility] #### [place] [id number] [facility] ECG 12 lead ECGon 02-08-2023 ECG 12 lead ECG [facility] [place] [address] [place] [address] Electrocardiograph Report Signed Patient: Esme Morfin MR#: [id number] 34 : 1975 Acct:[id number] Age/Sex: 47 / F ADM Date: 02/07/23 Loc: ER Room: Type: [facility] ER Attending Dr: Ordering Provider: Candice Sifuentes DO Date of Service: 02/07/23 ECG/ECG 12 lead ECG: CHEST PAIN Copies to: Test Reason : Blood Pressure : 159/075 mmHG Vent. Rate : 090 BPM Atrial Rate : 090 BPM P-R Int : 116 ms QRS Dur : 082 ms QT Int : 404 ms P-R-T Axes : 004 -43 053 degrees QTc Int : 494 ms Normal sinus rhythm Left axis deviation Prolonged QT Abnormal ECG When compared with ECG of 09-JAN-2023 07:03, No significant change was found Confirmed by CANDICE SIFUENTES DO ([id number]) on 02/08/2023 6:40:08 PM Referred By: Electronically Signed By:CANDICE SIFUENTES DO Transcribed By: MUS Signed By Candice Sifuentes DO 1840 Normal [facility] Partial Thromboplastin Timeo n 02-08-2023 aPTT Coag (Bld) [Time] 30.2 s Normal 25.1-36.5 [facility] Comment on above: Result Comment: A he matocrit value greater than 55% may lead to inaccurate results in coagulation testing. Patients having hematocrit values >55% require a special collection tube for coagulation studies. Please contact the laboratory at [phone] for redraw instructions. PERFORMED BY: [place] [address] PATHOLOGIST MACHINIST CLASS B NETO FLORENTINO M.D. Performed By: #### U RANDI STUBBS, [facility] #### [place] [id number] [facility] Prothrombin Time INRon 02-08 INR Coag (PPP) [Relative time] 0.9 {INR} Normal [facility] Comment on above: Result Comment: INR Therapeutic Range A) Pre- and Peroperative OAT started two weeks before surgery. NOT HIP SURGERY: 1.5 - 2.5 HIP SURGERY: 2 - 3 B) Primary and secondary prevention of venous THROMBOSIS: 2 - 3 C) Active venous thrombosis, pulmonary embolism and prevention of recurrent venous thrombosis: 2 - 3 D) Prevention of arterial thromboembolism including patients with mechanical heart valves: 3 - 4.5 Performed By: #### U EVELYNE, , [facility] #### [address] PT Coag (PPP) [Time] 9.9 s Normal 9.0-12.9 [facility] Comment on above: Result Comment: A he matocrit value greater than 55% may lead to inaccurate results in coagulation testing. Patients having hematocrit values >55% require a special collection tube for coagulation studies. Please contact the laboratory at [phone] for redraw instructions. Performed By: #### U EVELYNE , [facility] #### [address] Troponin I High Sensitivityo n 02-08-2023 Troponin I High Sensitivity 5.5 pg/mL Normal 0.0-15.0 [facility] Comment on above: Result Comment: PERF ORMED BY: [place] [address] PATHOLOGIST MACHINIST CLASS B NETO FLORENTINO M.D. Performed By: #### U EVELYNE, , [facility] #### [address] XR chest 2V*on 02-08-2023 XR chest 2V* [facility] [place] [address] [place] [address] XRay Report Signed Patient: Esme Morfin MR#: [id number] [birth year] : 1975 Acct:[id number] Age/Sex: 47 / F ADM Date: 02/07/23 Loc: ER Room: Type: [facility] ER Attending Dr: Copies to: Candice Sifuentes DO Ordering Provider: Candice Sifuentes DO Date of Service: 02/07/23 XR/XR chest 2V*: Chest Pain Plain film chest 2 view HISTORY: Chest pain. COMPARISON: 12/21/2015 FINDINGS: SUPPORT DEVICES: None POSTSURGICAL CHANGES: None HEART: Within normal limits PULMONARY NAYELY: Within normal limits MEDIASTINUM: Unremarkable LUNGS AND PLEURA: No acute lung process, pleural effusion or pneumothorax identified. BONY STRUCTURES: Thoracic spondylosis. ADDITIONAL FINDINGS None XR/XR chest 2V* IMPRESSION: No acute process. Impression dictated by: Roberto Diego M.D.02/08/2023 10:00 AM Dictation Location: [place] [address] Transcribed By: [facility] 02/08/23 1000 Dictated By: Roberto Diego DO 02/08/23 0937 Signed By: 02/08/23 1000 Normal [facility] Activated partial thrombopla stin time (aPTT) in platelet poor plasma by coagulation aOrdered By: Candice Sifuentes on 02-07-2023 aPTT Coag (PPP) [Time] 30.2 s 25.1-36.5 [facility] Comment on above: A hematocrit value g reater than 55% may lead to inaccurate results in coagulation testing. Patients having hematocrit values >55% require a special collection tube for coagulation studies. Please contact the laboratory at [phone] for redraw instructions. Basophils Auto (Bld) [#/Vol] Ordered By: Candice Sifuentes on 02-07-2023 Basophils (Bld) [#/Vol] 0.1 10*3/uL 0.0-0.2 [facility] Basophils/100 WBC Auto (Bld) Ordered By: Candice Sifuentes on 02-07-2023 Basophils/100 WBC (Bld) 0.9 % . [facility] Calcium [Mass/volume] in Ser um or PlasmaOrdered By: Candice Sifuentes on 02-07-2023 Calcium [Mass/Vol] 9.7 mg/dL 8.6-10.3 [facility] Carbon dioxide, total [Moles /volume] in Serum or PlasmaOrdered By: Candice Sifuentes on 02-07-2023 CO2 [Moles/Vol] 22.9 mmol/L 21.0-31.0 [facility] Chloride [Moles/volume] in S jemal or PlasmaOrdered By: Candice Sifuentes on 02-07-2023 Chloride [Moles/Vol] 103 mmol/L 98-[address] [facility] Creatine kinase [Enzymatic a ctivity/volume] in Serum or PlasmaOrdered By: Candice Sifuentes on 02-07-2023 CK [Catalytic activity/Vol] 39 U/L 30-223 [facility] Creatinine [Mass/volume] in Serum or PlasmaOrdered By: Candice Sifuentes on 02-07-2023 Creatinine [Mass/Vol] 1.20 mg/dL 0.60-1.20 [facility] Eosinophils Auto (Bld) [#/Vo l]Ordered By: Candice Sifuentes on 02-07-2023 Eosinophils (Bld) [#/Vol] 0.2 10*3/uL 0.0-0.45 [facility] Eosinophils/100 WBC Auto (Bl d)Ordered By: Candice Sifuentes on 02-07-2023 Eosinophils/100 WBC (Bld) 2.2 % . [facility] Erythrocyte distribution wid th Auto (RBC) [Ratio]Ordered By: Candice Sifuentes on 02-07-2023 Erythrocyte distribution width (RBC) [Ratio] 15.1 % 11.9-15.3 [facility] Glucose [Mass/volume] in Ser um or PlasmaOrdered By: Candice Sifuentes on 02-07-2023 Glucose [Mass/Vol] 107 mg/dL 70-100 [facility] Comment on above: ADA recommended refe rence rangeRandom Glucose Reference Range is dependent on time and content of last meal. Glucose of more than 200 mg/dL in a nonstressed, ambulatory subject supports the diagnosis of Diabetes Mellitus. Hematocrit Auto (Bld) [Volum e fraction]Ordered By: Candice Sifuentes on 02-07-2023 Hematocrit (Bld) [Volume fraction] 42.8 % 34.0-46.4 [facility] Hemoglobin [Mass/volume] in BloodOrdered By: Candice Sifuentes on 02-07-2023 Hemoglobin (Bld) [Mass/Vol] 14.3 g/dL 11.8-15.4 [facility] INR in Platelet poor plasma by Coagulation assayOrdered By: Candice Sifuentes on 02-07-2023 INR Coag (PPP) [Relative time] 0.9 {INR} [facility] Comment on above: INR Therapeutic Rang e A) Pre- and Peroperative OAT started two weeks before surgery. NOT HIP SURGERY: 1.5 - 2.5 HIP SURGERY: 2 - 3B) Primary and secondary prevention of venous THROMBOSIS: 2 - 3C) Active venous thrombosis, pulmonary embolismand prevention of recurrent venous thrombosis: 2 - 3D) Prevention of arterial thromboembolismincluding patients with mechanical heart valves: 3 - 4.5 Leukocytes [#/volume] correc imtiaz for nucleated erythrocytes in Blood by Automated counOrdered By: Candice Sifuentes on 02-07-2023 WBC corrected for nucl RBC Auto (Bld) [#/Vol] 10.4 10*3/uL 3.8-11.6 [facility] Lymphocytes Auto (Bld) [#/Vo l]Ordered By: Candice Sifuentes on 02-07-2023 Lymphocytes (Bld) [#/Vol] 3.9 10*3/uL 1.00-4.8 [facility] Lymphocytes/100 WBC Auto (Bl d)Ordered By: Candice Sifuentes on 02-07-2023 Lymphocytes/100 WBC (Bld) 37.6 % . [facility] MCH Auto (RBC) [Entitic mass ]Ordered By: Candice Sifuentes on 02-07-2023 MCH (RBC) [Entitic mass] 29.0 pg 24.7-34.3 [facility] MCHC Auto (RBC) [Mass/Vol]Or dered By: Candice Sifuentes on 02-07-2023 MCHC (RBC) [Mass/Vol] 33.5 g/dL 32.0-35.0 [facility] MCV Auto (RBC) [Entitic vol] Ordered By: Candice Sifuentes on 02-07-2023 MCV (RBC) [Entitic vol] 86.5 fL 80-100 [facility] Monocyte distribution width [Entitic volume] in Blood by AutomatedOrdered By: Candice Sifuentes on 02-07-2023 Monocyte distribution width Auto (Bld) [Entitic vol] 18.92 % 0.00-20.00 [facility] Monocytes Auto (Bld) [#/Vol] Ordered By: Candice Sifuentes on 02-07-2023 Monocytes (Bld) [#/Vol] 0.9 10*3/uL 0.0-0.8 [facility] Monocytes/100 WBC Auto (Bld) Ordered By: Candice Sifuentes on 02-07-2023 Monocytes/100 WBC (Bld) 8.7 % . [facility] Natriuretic peptide B [Mass/ Vol]Ordered By: Candice Sifuentes on 02-07-2023 Natriuretic peptide B (Bld) [Mass/Vol] 39.0 pg/mL 5-100 [facility] Neutrophils Auto (Bld) [#/Vo l]Ordered By: Candice Sifuentes on 02-07-2023 Neutrophils (Bld) [#/Vol] 5.2 10*3/uL 1.8-7.7 [facility] Neutrophils/100 WBC Auto (Bl d)Ordered By: Candice Sifuentes on 02-07-2023 Neutrophils/100 WBC (Bld) 50.6 % . [facility] No Panel InformationOrdered By: Candice Sifuentes on 02-07-2023 Estimated GFR (CKD-EPI) 55.490 mL/Min [facility] Creatinine Clearance (Chem 63.97 [facility] Nucleated erythrocytes [Pres ence] in Blood by Automated countOrdered By: Candice Sifuentes on 02-07-2023 Nucleated RBC Auto Ql (Bld) 0.1 /100{WBC} 0-0.5 [facility] Platelet mean volume Auto (B ld) [Entitic vol]Ordered By: Candice Sifuentes on 02-07-2023 Platelet mean volume (Bld) [Entitic vol] 7.8 fL 6.3-10.7 [facility] Platelets Auto (Bld) [#/Vol] Ordered By: Candice Sifuentes on 02-07-2023 Platelets (Bld) [#/Vol] 272 10*3/uL 150-450 [facility] Potassium [Moles/volume] in Serum or PlasmaOrdered By: Candice Sifuentes on 02-07-2023 Potassium [Moles/Vol] 3.8 mmol/L 3.5-5.1 [facility] Prothrombin time (PT)Ordered By: Candice Sifuentes on 02-07-2023 PT Coag (PPP) [Time] 9.9 s 9.0-12.[address] [facility] Comment on above: A hematocrit value g reater than 55% may lead to inaccurate results in coagulation testing. Patients having hematocrit values >55% require a special collection tube for coagulation studies. Please contact the laboratory at [phone] for redraw instructions. RBC Auto (Bld) [#/Vol]Ordere d By: Candice Sifuentes on 02-07-2023 RBC (Bld) [#/Vol] 4.95 10*6/uL 3.60-5.00 [facility] Serum or plasma anion gap de terminationOrdered By: Candice Sifuentes on 02-07-2023 Anion gap [Moles/Vol] 14.9 mmol/L 6.0-15.0 [facility] Sodium [Moles/volume] in Ser um or PlasmaOrdered By: Candice Sifuentes on 02-07-2023 Sodium [Moles/Vol] 137 mmol/L 136-145 [facility] Troponin I.cardiac [Mass/vol ume] in Serum or Plasma by Detection limit <= 0.01 ng/Ordered By: Candice Sifuentes on 02-07-2023 Troponin I.cardiac DL <= 0.01 ng/mL [Mass/Vol] 5.5 pg/mL 0.0-15.0 [facility] Urea nitrogen [Mass/volume] in Serum or PlasmaOrdered By: Candice Sifuentes on 02-07-2023 Urea nitrogen [Mass/Vol] 16 mg/dL 7-25 [facility] WBC Auto (Bld) [#/Vol]Ordere d By: Candice Sifuentes on 02-07-2023 WBC (Bld) [#/Vol] 10.4 10*3/uL 3.8-11.6 [facility] CNOVon 02-05-2023 CNOV Office Visit (ENDONR ) -- ESME MORFIN ([id number]) 1975 F Date Time Provider Department 02/05/23 12:45 PM BIPIN NINA ENDONR During your visit today, we recorded the following information about you: Pulse Blood pressure Weight Height 92/minute 116/76 103.8 kg 1.6 m Halie Bland MA 02/05/2023 12:44 PM Signed PT states they tested several days this week and their BG has been in the 400's Bipin Nina APRN.DRILL PRESS HAND 02/05/2023 1:44 PM Signed Endocrinology Follow-up Subjective History of Present Illness Esme Morfin presents today for follow up of Type 2 Diabetes Mellitus. Gender: female Age: [age] year old Diagnosed with Type 2 Diabetes Mellitus ~ 2014. 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 Hypoglycemia awareness: Yes Last seen by endocrinology 11/30/2022. Resumed trulicity at that time. Has not been wearing CGM - alerts her over night Quit drinking pop Has been having higher anxiety as of late - has been weaned off xanax during detox Has resorted to drinking alcohol to fall asleep at night Gained 9 lbs since last OV Stopped acarbose since last OV - was not having lows so stopped Recent A1c results: Hemoglobin A1C (%) Date Value 06/16/2022 6.2 01/21/2022 6.3 03/17/2021 6.0 12/27/2020 6.2 08/13/2020 6.1 Hemoglobin A1C (POCT) (%) Date Value 11/30/2022 6.6 DM complications: none Prior DM medications: Ozempic - cost / [place] coverage Acarbose Current DM regimen: Trulicity 0.75 mg weekly Glucose monitoring: - Frequency of Monitorin-2x a day fasting, before meals - Denies hypoglycemia. - Able to self treat: Not applicable Fastin's Pre meal: 160-170's, With stress during panic attacks: 200-400's Diet: Doing ok with diet Eating at set meal times throughout day - smaller portions Physical activity: Minimal Sedentary Has plans to go to gym once foot heels Health maintenance: Diabetic Foot and Retinal Eye Exam not Overdue Medications, Past History, Allergies Current Medications 02/05/2023 DIABETES THERAPIES Medication Dosage Pharm Subclass acarbose (PRECOSE) 50 mg tablet Take 1 tablet by mouth three times daily. Antihyperglycemic - Alpha-Glucosidase Inhibitors dulaglutide (TRULICITY) 0.75 mg/0.5 mL pen injector Inject 0.75 mg subcutaneously one time a week. Antihyperglycemic - Glucagon-Like Peptide-1 (GLP-1) Receptor Agonists OTHER Medication Dosage Pharm Subclass ALPRAZolam (XANAX) 0.25 mg tablet Take 0.5 tablets by mouth as needed. Antianxiety Agent - Benzodiazepines BIPAP Lifetime supplies for BiPAP 12/8 cm H20 including mask, heated tubing, humidity, filters. Dx: G47.33 Medical Supply, [employer] Superset blood sugar diagnostic (TRUE METRIX GLUCOSE TEST STRIP) test strip Use as instructed to check glucose 4 x daily or more as needed. Medical Supplies and DME - Blood Glucose Tests Blood-Glucose Sensor (FREESTYLE NBA 3 SENSOR) vinny Use to check glucose 4 times or more daily. Change sensor every 14 days. Medical Supplies and DME - Glucose Monitoring Test Supplies busPIRone (BUSPAR) 7.5 mg tablet Take 7.5 mg by mouth three times a day. Antianxiety Agent - Non-Benzodiazepine CPAP/BIPAP/OTHER Type .CPAPSettings into a note to see current settings/supplies/DME information. Medical Supply, [employer] Superset CPAP/BIPAP/OTHER Type .CPAPSettings into a note to see current settings/supplies/DME information. Medical Supply, [employer] Superset cyanocobalamin 1,000 mcg/mL inject 1 milliliter intramuscularly ONCE A MONTH as instructed Vitamins - B-12, Cyanocobalamin and derivatives diclofenac (VOLTAREN ARTHRITIS PAIN) 1 % topical gel Apply 4 g to affected area four times daily. Dermatological - NSAID Single Agents ergocalciferol 50,000 unit capsule (VITAMIN D2, DRISDOL) Take 1 capsule by mouth three times a week. Vitamins - D Derivatives escitalopram oxalate (LEXAPRO) 10 mg tablet Take 10 mg by mouth once daily. Antidepressant - Selective Serotonin Reuptake Inhibitors (SSRIs) glucagon (BAQSIMI) 3 mg/actuation nasal spray Use 1 [place] in the nose as needed for low blood sugar. May repeat after 15 minutes using a new device if there is no response. Agents to treat Hypoglycemia (Hyperglycemics) hydrOXYzine pamoate (VISTARIL) 25 mg capsule Take 25 mg by mouth two times a day as needed for anxiety. Antianxiety Agent - Antihistamine Type levothyroxine (SYNTHROID) 75 mcg tablet Take 1 tablet by mouth once daily. Thyroid Hormones - Synthetic T4 (Thyroxine) meclizine (ANTIVERT) 25 mg tab Take 0.5-1 tablets by mouth three times daily as needed (for dizziness.). Antiemetic - Antihistamines Mirtazapine (REMERON) 7.5 mg tablet Take 7.5 mg by mouth daily at [facility] (more content not included)... Normal [facility] 02-05-2023 [facility] Tele[facility] -- ESME MORFIN ([id number]) 1975 F Date Time Provider Department 02/05/23 SARA STORM [facility] During your visit today, we recorded the following information about you: Sara Storm LSW 02/05/2023 3:08 PM Signed Endocrinology AND Metabolism Social Work Progress Note Provider Action / FYI gas utility worker to check-in with Patient late next week. 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 Patient reports she was on a heavy dose of Xanax for 3 years after her dad and the Xanax worked well with her sleep medication for insomnia. Patient explains she was medically tapered off her medications at an inpatient detox facility for 7 days and they put her on a regimen that is not working. Patient reports she is having more panic attacks and is on 6-7 psych meds now. Patient states she did not drink any alcohol for 2 years after her bariatric surgery and she is now drinking to take the edge off. Patient explains alternative methods are not working, but she does not want to be on medications. Patient reports she lost her job and is not currently working. gas utility worker provides supportive and empathetic listening to Patient as she expresses her struggles with her mental health. Patient states she was seeing someone at [facility] (that facility works with the detox center Patient went to) and person there said she needs a higher level of care or go inpatient. Patient explains her family doctor kept trying to adjust her medications and it has not been working. Patient reports she currently sees a therapist and has an upcoming sleep disorders appointment at the [facility]. Patient explains she wants to see someone who specializes in severe anxiety. gas utility worker searches the in-network provider database on the [facility] [employer] [facility] website. gas utility worker discusses search results for psychiatrists within 15 miles of Patient's zip code and Patient is interested in the following providers: [facility]; [place] [employer]; [facility]; and [facility]. Patient denies interest in [facility] providers. Patient asks social media specialist for resources on mindfulness and meditation near Patient. gas utility worker advises Patient to call her insurance company and inquire about reimbursement benefits or a stipend for these kinds of services. 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 gas utility worker sends Patient resources via [employer] message. [facility] referral placed: No Signature: MICHELA Good, MARIA TERESA Patient Name: Esme Morfin Date: 02/05/2023 Time: 1:37 PM Pager/Contact #: [phone] During this patient contact I spent approximately 30 minutes in reviewing the patient's chart and counseling regarding community resources and coordinating care. Allergies As of Date: 02/05/2023 Noted Allergy Reaction Contrast Dye (IODINE) 11/04/2020 14 - Other: See Comments MOBIC (MELOXICAM) 08/05/2016 5 - Intolerance Comments: GI bleed with transfusion MOTRIN (IBUPROFEN) 11/06/2015 14 - Other: See Comments Comments: GI Bleed NSAIDS (NON-STEROIDAL ANTI-INFLAM*03/05/2016 16 - Unknown PREDNISONE 08/05/2016 15 - Contraindication-Medical [place]* Comments: GI bleed SCOPOLAMINE 12/01/2016 1 - Mental Status Change Comments: Paranoia, confusion, hallucination Date Reviewed: 02/05/2023 Reviewed by: Bipin Nina APRN.DRILL PRESS HAND - Fully Assessed Reason for Visit: Ambulatory Social Work [[id number]] Prescriptions as of 02/05/2023 - dulaglutide (TRULICITY) 1.5 mg/0.5 mL pen injector Inject 1.5 mg subcutaneously one time a week. - Blood-Glucose Meter (FREESTYLE LITE METER) monitoring kit Use as instructed. - blood sugar diagnostic (FREESTYLE LITE STRIPS) test strip TEST BLOOD SUGARS 2 TIMES DAILY - busPIRone (BUSPAR) 7.5 mg tablet Take 7.5 mg by mouth three times a day. - escitalopram oxalate (LEXAPRO) 10 mg tablet Take 10 mg by mouth once daily. - Mirtazapine (REMERON) 7.5 mg tablet Take 7.5 mg by mouth daily at bedtime. - rOPINIRole (REQUIP) 0.5 mg tablet Take 0.5 mg by mouth daily at bedtime. - hydrOXYzine pamoate (VISTARIL) 25 mg capsule Take 25 mg by mouth two times a day as needed for anxiety. - ergocalciferol 50,000 unit capsule (VITAMIN D2, DRISDOL) Take 1 capsule by mouth three times a week. - levothyroxine (SYNTHROID) 75 mcg tablet Take 1 tablet by mouth once daily. - tretinoin (RETIN-A) 0.025 % topical cream Apply to affected area daily at bedtim (more content not included)... Normal [facility] ([id number]) 1975 F Date Time Provider Department 01/18/[address] [facility] During your visit today, we recorded the following information about you: Oma Montero LPN 01/18/2023 2:51 PM Signed I called patient to confirm [facility] appt today. She states that she sick and going to test herself for Covid later. She is complaining of low grade fever, fatigue and overall malaise since last week. I advised that she should reschedule today's appt until she is feeling better. She is requesting [facility] schedulers to call her Wednesday to reschedule appt. Please also cancel today's appt. Thank you, Oma Montero LPN January 18, 2023 2:50 PM Allergies As of Date: 01/18/2023 Noted Allergy Reaction Contrast Dye (IODINE) 11/04/2020 14 - Other: See Comments MOBIC (MELOXICAM) 08/05/2016 5 - Intolerance Comments: GI bleed with transfusion MOTRIN (IBUPROFEN) 11/06/2015 14 - Other: See Comments Comments: GI Bleed NSAIDS (NON-STEROIDAL ANTI-INFLAM*03/05/2016 16 - Unknown PREDNISONE 08/05/2016 15 - Contraindication-Medical Parnell* Comments: GI bleed SCOPOLAMINE 12/01/2016 1 - Mental Status Change Comments: Paranoia, confusion, hallucination Date Reviewed: 01/05/2023 Reviewed by: Chiara Almaraz MA - Fully Assessed Reason for Visit: Appointment Confirmation [[id number]] Prescriptions as of 01/18/2023 - busPIRone (BUSPAR) 7.5 mg tablet Take 7.5 mg by mouth three times a day. - escitalopram oxalate (LEXAPRO) 10 mg tablet Take 10 mg by mouth once daily. - Mirtazapine (REMERON) 7.5 mg tablet Take 7.5 mg by mouth daily at bedtime. - rOPINIRole (REQUIP) 0.5 mg tablet Take 0.5 mg by mouth daily at bedtime. - hydrOXYzine pamoate (VISTARIL) 25 mg capsule Take 25 mg by mouth two times a day as needed for anxiety. - ergocalciferol 50,000 unit capsule (VITAMIN D2, DRISDOL) Take 1 capsule by mouth three times a week. - levothyroxine (SYNTHROID) 75 mcg tablet Take 1 tablet by mouth once daily. - tretinoin (RETIN-A) 0.025 % topical cream Apply to affected area daily at bedtime. - Syringe with Needle, Safety (EASY TOUCH SHEATHLOCK SYRG-NDL) 3 mL 25 gauge x 1 syrg Weekly methotrexate injections, monthly vit b12 injections as instructed - cyanocobalamin 1,000 mcg/mL inject 1 milliliter intramuscularly ONCE A MONTH as instructed - diclofenac (VOLTAREN ARTHRITIS PAIN) 1 % topical gel Apply 4 g to affected area four times daily. - dulaglutide (TRULICITY) 0.75 mg/0.5 mL pen injector Inject 0.75 mg subcutaneously one time a week. - CPAP/BIPAP/OTHER Type .CPAPSettings into a note to see current settings/supplies/DME information. - zaleplon (SONATA) 10 mg capsule Take 10 mg by mouth daily at bedtime. Pt takes 10mg qhs - acarbose (PRECOSE) 50 mg tablet Take 1 tablet by mouth three times daily. - glucagon (BAQSIMI) 3 mg/actuation nasal spray Use 1 [place] in the nose as needed for low blood sugar. May repeat after 15 minutes using a new device if there is no response. - Blood-Glucose Sensor (FREESTYLE NBA 3 SENSOR) vinny Use to check glucose 4 times or more daily. Change sensor every 14 days. - blood sugar diagnostic (TRUE METRIX GLUCOSE TEST STRIP) test strip Use as instructed to check glucose 4 x daily or more as needed. - CPAP/BIPAP/OTHER Type .CPAPSettings into a note to see current settings/supplies/DME information. - ALPRAZolam (XANAX) 0.25 mg tablet Take 0.5 tablets by mouth as needed. - meclizine (ANTIVERT) 25 mg tab Take 0.5-1 tablets by mouth three times daily as needed (for dizziness.). - BIPAP Lifetime supplies for BiPAP 12/8 cm H20 including mask, heated tubing, humidity, filters. Dx: G47.33 - promethazine (PHENERGAN) 25 mg tablet Take 25 mg by mouth four times daily as needed. - pantoprazole DR (PROTONIX) 40 mg tablet Take 1 tablet by mouth as needed. 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 Normal [facility] Auto Diffon 01-14-2023 Basophils/100 WBC (Bld) 0.6 % Normal 0.0-2.0 [facility] Comment on above: Order Comment: Order Added by Discern Expert. Performed By: #### 1 [id number], [id number], [id number], [id number], [id number], [id number] #### [facility] [address] [place] [id number] Basophils/Leukocytes Auto (Bld) [Pure # fraction] 0.0 E9/L Normal 0.0-0.2 [facility] Comment on above: Order Comment: Order Added by Discern Expert. Performed By: #### 1 [id number], [id number], [id number], [id number], [id number], [id number] #### [facility] [address] [place] [address] Eosinophils/100 WBC (Bld) 2.0 % Normal 0.0-8.0 [facility] Comment on above: Order Comment: Order Added by Discern Expert. Performed By: #### 1 [id number], [id number], 7956611, 1513834, [id number], [id number] #### [facility] [address] [place] [address] Eosinophils/Leukocytes Auto (Bld) [Pure # fraction] 0.1 E9/L Normal 0.0-0.5 [facility] Comment on above: Order Comment: Order Added by Discern Expert. Performed By: #### 1 [id number], [id number], 9913603, 1635976, [id number], [id number] #### [facility] [address] [place] [address] Lymphocytes/100 WBC (Bld) 24.2 % Normal 14.0-50.0 [facility] Comment on above: Order Comment: Order Added by Discern Expert. Performed By: #### 1 [id number], 7398841, 3893735, 1176108, [id number], [id number] #### [facility] [address] [place] [address] Lymphocytes/Leukocytes Auto (Bld) [Pure # fraction] 1.8 E9/L Normal 1.0-4.0 [facility] Comment on above: Order Comment: Order Added by Discern Expert. Performed By: #### 1 [id number], 1904432, 6217209, 6565490, 42986647, [id number] #### [facility] [address] [place] [address] Monocytes/100 WBC (Bld) 7.4 % Normal 4.0-14.0 [facility] Comment on above: Order Comment: Order Added by Discern Expert. Performed By: #### 1 [id number], 8565407, 0802559, 2029794, [id number], [id number] #### [facility] [address] [place] [address] Monocytes/Leukocytes Auto (Bld) [Pure # fraction] 0.5 E9/L Normal 0.2-1.0 [facility] Comment on above: Order Comment: Order Added by Discern Expert. Performed By: #### 1 [id number], 4389275, 8088658, 2153455, [id number], [id number] #### [facility] [address] [place] [address] Neutrophils/100 WBC (Bld) 65.8 % Normal 36.0-75.0 [facility] Comment on above: Order Comment: Order Added by Discern Expert. Performed By: #### 1 [id number], 1716942, 5431315, 0469416, 95410880, [id number] #### [facility] [address] [place] [address] Neutrophils/Leukocytes Auto (Bld) [Pure # fraction] 4.9 E9/L Normal 2.0-7.5 [facility] Comment on above: Order Comment: Order Added by Discern Expert. Performed By: #### 1 [id number], 5425985, 6159521, 7969919, [id number], [id number] #### [facility] [address] [place] [address] [facility] 01-14-2023 Creatinine [Mass/Vol] 1.0 mg/dL Normal 0.5-1.3 [facility] Comment on above: Performed By: #### 1 [id number], 5152674, 5496994, 1413295, 48932136, [id number] #### [facility] [address] [place] [address] Urea nitrogen [Mass/Vol] 8 mg/dL Normal 5-21 [facility] Comment on above: Performed By: #### 1 [id number], 6062969, 5003908, 3606684, 01210551, [id number] #### [facility] [address] [place] [address] Urea nitrogen/Creatinine [Mass ratio] 8 No Units Low 10-20 [facility] Comment on above: Performed By: #### 1 [id number], 8582231, 1015860, 9870848, 92278664, [id number] #### [facility] [address] [place] [address] Anion gap [Moles/Vol] 14 mmol/L Normal 6-16 [facility] Comment on above: Performed By: #### 1 [id number], 2041363, 4855930, 2032230, 13803989, [id number] #### [facility] [address] [place] [address] Calcium [Mass/Vol] 9.3 mg/dL Normal 8.9-11.1 [facility] Comment on above: Performed By: #### 1 [id number], 5154299, 0930386, 6182962, 33865876, [id number] #### [facility] [address] [place] [address] Chloride [Moles/Vol] 102 mmol/L Normal 101-111 [facility] Comment on above: Performed By: #### 1 [id number], 5899340, 9741752, 2852872, 89317946, [id number] #### [facility] [address] [place] [address] CO2 [Moles/Vol] 25 mmol/L Normal 21-31 [facility] Comment on above: Performed By: #### 1 [id number], 1511401, 8231926, 3528532, 42053136, [id number] #### [facility] Laboratory [address] [place] [address] Glucose [Mass/Vol] 102 mg/dL Normal 55-199 [facility] Comment on above: Result Comment: If t his glucose result represents a fasting glucose, interpretation should refer to the following reference range: 55-99 mg/dL Performed By: #### 1 [id number], [id number], [id number], 4906446, [id number], [id number] #### [facility] Laboratory [address] [place] [address] Potassium [Moles/Vol] 3.9 mmol/L Normal 3.5-5.3 [facility] Comment on above: Performed By: #### 1 [id number], 3076071, 8015907, 4559224, [id number], [id number] #### [facility] Laboratory [address] [place] [address] Sodium [Moles/Vol] 137 mmol/L Normal 135-145 [facility] Comment on above: Performed By: #### 1 [id number], 7010529, 8216111, 0201370, [id number], [id number] #### [facility] Laboratory [address] [place], [place] [id number] CBC w/ Auto Diffon 3 Erythrocyte distribution width (RBC) [Ratio] 14.1 % Normal 10.9-14.2 [facility] Comment on above: Performed By: #### 1 [id number], 6019182, 8944878, 2850662, [id number], [id number] #### [facility] Laboratory [address] [place] [id number] Hematocrit (Bld) [Volume fraction] 44.1 % Normal 34.0-46.0 [facility] Comment on above: Performed By: #### 1 [id number], 6232849, 3282976, 8768720, 96604438, [id number] #### [facility] Laboratory [address] [place] [address] Hemoglobin (Bld) [Mass/Vol] 14.5 g/dL Normal 12.0-16.0 [facility] Comment on above: Performed By: #### 1 [id number], 3762156, 5846192, 8245482, 34095424, [id number] #### [facility] Laboratory [address] [id number] MCH (RBC) [Entitic mass] 28.3 pg Normal 27.0-34.0 [facility] Comment on above: Performed By: #### 1 [id number], 7810059, 1725490, 7795532, 03956483, 07530302 #### [facility] Laboratory [address] [place] [address] MCHC (RBC) [Mass/Vol] 33.0 g/dL Normal 31.4-36.0 [facility] Comment on above: Performed By: #### 1 [id number], 1543573, 9259958, 3995091, 92838788, [id number] #### [facility] Laboratory [address] [place], [place] [address] MCV (RBC) [Entitic vol] 85.8 fL Normal 80.0-100.0 [facility] Comment on above: Performed By: #### 1 [id number], 7129293, 1357014, 8772070, 26633376, [id number] #### [facility] Laboratory [address] [place] [address] Platelet mean volume (Bld) [Entitic vol] 8.8 fL Normal 6.4-10.8 [facility] Comment on above: Performed By: #### 1 3042918, 6219673, 5037694, 5367813, 54022908, 65063509 #### [facility] Laboratory [address] [place] [address] Platelets (Bld) [#/Vol] 256.0 E9/L Normal 150.0-500.0 [facility] Comment on above: Performed By: #### 1 9321172, 7674438, 3160697, 3166706, 50680453, 60550315 #### [facility] Laboratory [address] [place] [address] RBC (Bld) [#/Vol] 5.1 E12/L Normal 4.3-5.9 [facility] Comment on above: Performed By: #### 1 4571089, 9278424, 2662846, 2486559, 46687514, 29239285 #### [facility] Laboratory [address] [place] [address] WBC corrected for nucl RBC Auto (Bld) [#/Vol] 7.4 E9/L Normal 4.0-11.0 [facility] Comment on above: Performed By: #### 1 [id number], 6477013, 9996631, 5452467, 19923324, 03634708 #### [facility] Laboratory [address] [place] [address] CHEMISTRYOrdered By: SYSTEM SYSTEM on 01-14-2023 Troponin I.cardiac [Mass/Vol] 3.80 pg/mL Low 10.10 - 27.10 pg/mL [facility] Comment on above: Interpretive Data: T he 95% CI (Confidence Interval) PPV (Positive Predictive Value) for myocardial infarction in females is 38 pg/mL, in males 51 pg/mL. The results should be used in conjunction with clinical conditions of myocardial infarction. (Access High Sensitivity Troponin I Instructions For Use, [employer], September 2017) Anion gap [Moles/Vol] 14 mmol/L Normal 6 - 16 mEq/L [facility] Calcium [Mass/Vol] 9.3 mg/dL Normal 8.9 - 11. 1 mg/dL [facility] Chloride [Moles/Vol] 102 mmol/L Normal 101 - 1 11 mmol/L [facility] CO2 [Moles/Vol] 25 mmol/L Normal 21 - 31 mmol/L [facility] Creatinine [Mass/Vol] 1.0 mg/dL Normal 0.5 - 1.3 mg/dL [facility] GFR/1.73 sq M.predicted among non-blacks MDRD (S/P/Bld) [Vol rate/Area] 69 mL/min/1.73 m2 Normal >=59mL/min/ 1.73 m2 [facility] Chem S Comment on above: Interpretive Data: C hronic kidney disease could be indicated at eGFR's of less than 60 mL/min/1.73m2. Kidney failure is indicated at less than 15 mL/min/1.73m2. Glucose [Mass/Vol] 102 mg/dL Normal 55 - 199 mg/dL [facility] Comment on above: Interpretive Data: I f this glucose result represents a fasting glucose, interpretation should refer to the following reference range: 55-99 mg/dL Potassium [Moles/Vol] 3.9 mmol/L Normal 3.5 - 5.3 mmol/L [facility] Sodium [Moles/Vol] 137 mmol/L Normal 135 - 145 mmol/L [facility] Troponin I.cardiac [Mass/Vol] 5.70 pg/mL Low 10.10 - 27.10 pg/mL [facility] Comment on above: Interpretive Data: T he 95% CI (Confidence Interval) PPV (Positive Predictive Value) for myocardial infarction in females is 38 pg/mL, in males 51 pg/mL. The results should be used in conjunction with clinical conditions of myocardial infarction. (Access High Sensitivity Troponin I Instructions For Use, [employer], September 2017) Urea nitrogen [Mass/Vol] 8 mg/dL Normal 5 - 21 mg/dL [facility] Urea nitrogen/Creatinine [Mass ratio] 8 mg/mg Low 10 - 20 [facility] Remisol COAGULATIONOrdered By: Ruth Morgan on 01-14-2023 aPTT Coag (PPP) [Time] 30.4 s Normal 25.1 - 36.5 second(s) [facility] Auto Coag Comment on above: Interpretive Data: Omar brar 15 days - 4 weeks 1 - 5 months 6 - 11 months 1 - 5 years 6 - 10 years 11 - 17 years PTT Mean: 35.4 (27.6-45.6) Mean: 33.5 (24.8-40.7) Mean: 32.4 (25.1-40.7) Mean: 31.6 (24.0-39.2) Mean: 31.6 (26.9-38.7) Mean: 31.0 (24.6-38.4) Pediatric Reference ranges were obtained from a study by Jimi Tompkins et al. prepared from 1437 samples obtained at 7 different centers using the same coagulation reagent and instrumentation as [facility]. Currently there are no coagulation studies available worldwide for children to 14 days, and no normal ranges. Heparin therapeutic range (represented by Anti-Factor Xa activity of 0.2 - 0.4 U/mL) corresponds to PTT of 56.6 - 109.0 sec. INR Coag (PPP) [Relative time] 1.0 {INR} Invalid Interpretation Code [facility] Auto Coag Comment on above: Interpretive Data: I NR results are specifically intended to assess patients stabilized on long-term Anticoagulation therapy suggested INR s Less Intensive Anticoagulation 2.0 3.0 Conventional Range 3.0 4.5 PT Coag (PPP) [Time] 10.9 s Normal 9.4 - 1 2.5 second(s) [facility] Auto Coag Comment on above: Interpretive Data: 1 5 days - 4 weeks 1 - 5 months 6 -11 months 1 5 years 6 10 years 11 -17 years Mean: 11.2 (9.5 12.6) Mean: 11.0 (9.7 12.8) Mean: 11.0 (9.8 13.0) Mean: 11.3 (9.9 13.4) Mean: 11.7 (10.0 14.6) Mean: 11.8 (10.0 - 14.1) Pediatric Reference ranges were obtained from a study by kalpana Wong al. prepared from 1437 samples obtained at 7 different centers using the same coagulation reagent and instrumentation as [facility]. Currently there are no coagulation studies available worldwide for children to 14 days, and no normal ranges. Consent for Treatmenton Consent for Treatment [id number] Normal [facility] Discharge Instructionson Discharge Instructions [id number] Normal [facility] ED Clinical Summaryon 2022 ED Clinical Summary (Inserted Image. Lupe ble to display) [address] [address] ED Clinical Summary Person Information Name: ESME MORFIN [place] Age: 47 Years : 1975 Sex: Female Language: Bruneian PCP: Farhat Pineda MD Marital Status: Single Phone: [phone] Visit Id: Visit Reason: Dizziness; Shortness of breath; Chest pain; CHEST PAIN Speciality: Acuity: 2 Enc Type: Emergency Med Service: Emergency Arrival: 01/14/2023 10:43:09 Discharge: 01/14/2023 16:00:49 LOS: 000 05:17 Checkin: 01/14/2023 10:43:09 Checkout: 01/14/2023 16:00:49 Dispo Type: Home (Routine DC) EVENTS: Event Name Event Status Request Date/Time Start Date/Time Complete Date/Time Arrive Complete 01/14/2023 10:43:09 01/14/2023 10:43:09 01/14/2023 10:43:09 Document Home Meds Request 01/14/2023 10:43:09 Triage Complete 01/14/2023 10:43:09 01/14/2023 10:54:30 01/14/2023 10:54:30 EKG Complete 01/14/2023 10:46:25 01/14/2023 10:51:16 Bed Assign Complete 01/14/2023 10:55:07 01/14/2023 10:55:07 01/14/2023 10:55:07 Dr Exam Complete 01/14/2023 10:55:07 01/14/2023 10:57:48 01/14/2023 10:57:48 RN Exam Complete 01/14/2023 10:55:07 01/14/2023 11:29:11 01/14/2023 11:29:11 Pending Labs Request 01/14/2023 10:55:57 Lab Complete 01/14/2023 10:55:57 01/14/2023 11:44:17 Patient Care Request 01/14/2023 10:55:57 RT Request 01/14/2023 10:55:57 X-Ray Complete 01/14/2023 10:55:57 01/14/2023 11:11:59 01/14/2023 11:28:20 Registration Complete 01/14/2023 10:57:48 01/14/2023 11:33:46 01/14/2023 11:42:45 Dr Exam Complete 01/14/2023 11:03:04 01/14/2023 11:03:04 01/14/2023 11:03:04 Meds Admin Complete 01/14/2023 11:11:33 01/14/2023 11:24:53 EKG Complete 01/14/2023 11:14:51 01/14/2023 11:20:17 Pending Labs Complete 01/14/2023 11:24:36 01/14/2023 11:24:36 01/14/2023 11:44:18 Lab Complete 01/14/2023 11:24:36 01/14/2023 11:24:36 01/14/2023 11:44:18 Wet Read Request 01/14/2023 11:28:20 Pending Labs Complete 01/14/2023 11:32:53 01/14/2023 11:32:53 01/14/2023 11:32:53 Pending Labs Complete 01/14/2023 11:33:29 01/14/2023 11:33:29 01/14/2023 11:33:37 Lab Complete 01/14/2023 11:33:29 01/14/2023 11:33:29 01/14/2023 11:33:37 Reg Complete Request 01/14/2023 11:42:45 Reg Bed Request Complete 01/14/2023 11:42:45 01/14/2023 11:42:45 01/14/2023 11:42:45 Discharge Complete 01/14/2023 15:42:42 01/14/2023 16:00:55 01/14/2023 16:00:55 Meds Admin Complete 01/14/2023 15:44:23 01/14/2023 15:57:20 Transfer Complete 01/14/2023 16:00:55 01/14/2023 16:00:55 01/14/2023 16:00:55 ADDRESS: [address] [place] [address] [address] [facility] [id number] [facility] NOTES: MEDICAL INFORMATION: Prescriptions Given: Medications to Continue with No Changes Other Medications albuterol (albuterol HFA 90 mcg/inh MDI) 2 Puffs Inhalation 4 times a day. Refills: 0. alprazolam (alprazolam 0.25 mg Tab) 1 Tablets By Mouth 3 times a day as needed as needed for anxiety. cyanocobalamin (cyanocobalamin 1000 mcg/mL Inj) 1 Milliliter Intramuscular once a month. ergocalciferol (Vitamin D 50,000 intl units (1.25 mg) oral capsule) 1 Capsules By Mouth every day. hydrOXYzine (Vistaril 25 mg Cap) 1-2 cap(s) By Mouth 4 times a day as needed as needed for anxiety. Refills: 0. levofloxacin (levofloxacin 750 mg Tab) 1 Tablets By Mouth every day. for 10 days. phentermine (phentermine 37.5 mg Tab) 0.5 Tablets By Mouth 2 times a day. promethazine (promethazine 25 mg Tab) 1 Tablets By Mouth 2 times a day. PATIENT EDUCATION INFORMATION: Instructions: Nonspecific Chest Pain, Adult Follow up: With: Address: When: Farhat Pineda [address] [place] [address], [address] [place] [phone] Business (1) In 3 days 01/17/2023 DIAGNOSIS: Chest pain Normal [facility] ED Note-Physicianon 01-15-20 ED Note-Physician Basic Information Time Seen: Dillon Desai PA-C 01/14/2023 10:57 Chief Complaint Pt c/o midsternal cp radiating to back and L shoulder for the past 40 minutes. No cardiac hx but hx of anxiety with recent wean from xanax. Pt reports SOB and some dizziness as well. History of Present Illness 47-year-old female comes to the ED for evaluation of chest pain. She states she developed chest pain approxi-40 minutes prior to arrival. Complains of midsternal pain that rates across the chest. She feels short of breath. She states she was recent taken off her Xanax and has been dealing with increased anxiety, but is concerned this is her heart. She has no history of CAD. No cough, congestion, fever, chills. No nausea or vomiting or diaphoresis. No prior treatments. Review of Systems A 10 point review of systems is negative except as noted above. Medical and Surgical History: Reviewed and noted Social history: Lives at home Tobacco: Denies Physical Exam Vitals & Measurements T: 36.5 ?C(Oral) HR: 100(Monitored) RR: 12 BP: 127/60 SpO2: 96% HT: 157.7 cm WT: 100.9 kg BMI: 40.57 Nurses notes and vital signs reviewed and patient is not hypoxic. General: The patient appears well and in no significant distress Patient is resting comfortably on the exam bed. Skin: Warm, dry, no pallor noted. Head: Atraumatic. Neck: No JVD. Eye: Normal conjunctiva. Ears, Nose, Mouth, and Throat: Moist mucous members. Cardiovascular: Strong distal pulses. Normal cardiac rate. No peripheral edema. Chest wall: Respiratory: Respirations are nonlabored. Clear to auscultation. Back: Normal range of motion, no CVA tenderness. Musculoskeletal: Normal ROM with no gross deformity. Gastrointestinal: Soft and nontender. Urological: Neurological: Awake and alert. No focal deficits. Follows commands. GCS 15. Psychiatric: Cooperative. Medical Decision Making Laboratory studies reviewed and noted. Both 0 and 3-hour high-sensitivity troponins returned within normal limits. EKG without ischemic changes. Chest x-ray with no acute findings. Patient was given Ativan here and on repeat evaluation she appears and feels much improved. Her heart score is less than 4, she is safe for discharge home with outpatient follow-up. Patient was encouraged to return to the ED if symptoms worsen or change. Assessment/Plan Chest pain (R07.9: Chest pain, unspecified) Orders: lorazepam, 1 mg = 1 tab(s), Tab, Oral, Once, Stop date 01/14/23 15:44:00 EST, STAT, Start date 01/14/23 15:44:00 EST, 01/14/23 15:44:00 EST lorazepam, 2 mg = 2 tab(s), Tab, Oral, Once, Stop date 01/14/23 11:11:00 EST, STAT, Start date 01/14/23 11:11:00 EST, 01/14/23 11:11:00 EST ECG 12 Lead Adult Medications Administered Given Ativan 1 mg Tab, 1 mg, Oral Ativan 1 mg Tab, 2 mg, Oral Disposition Plan Patient Discharge Condition Disposition: Discharged home Condition: Improved and stable Counseled: Patient and/or family were counseled to workup, results, treatment plan and follow-up recommendations Discharge Prescription List Prescriptions No active prescription medications Follow-up With When Contact Information Farhat Pineda In 3 days 01/17/2023 EST [address] [place] [address]- Business (1) Additional Instructions: Patient Education Nonspecific Chest Pain, Adult Attestation Patient seen and evaluated by the physician mortgage assistant. Attending physician was present in the emergency department and supervised care. This visit was performed by both the physician and an APC. I performed all aspects of the MDM as documented. This report was transcribed using voice recognition software. Every effort was made to ensure accuracy, however, inadvertently computerized civil preparedness coordinator mistakes may be present. Appropriate healthcare PPE was used in evaluating this patient. The patient was placed in a mask. The healthcare provider was wearing mask, gloves, and utilizing proper hand hygiene. All equipment was properly cleansed. Problem List/Past Medical History Ongoing Anemia Anxiety Aortic insufficiency Chronic GERD Fibromyalgia H/O Diverticulitis H/O: pneumonia History of gastrointestinal bleeding Mitral valve regurgitation Obesity 10-AUG-2013 12:37:00<$> Sleep apnea thyroid cancer/thyroidectomy Type 2 diabetes mellitus Historical Acute anterior myocardial infarction Acute GI bleeding Anemia due to acute blood loss Bronchitis, chronic Cellulitis Cellulitis and abscess of right lower extremity DVT (deep venous thrombosis) gallbladder surgery Hx of heart catheterization Kidney disease, medullary sponge [place] - myocardial infarction scopes Thyroid cancer Procedure/Surgical History Cystoscopy (06/30/2017), Bilateral tubal ligation, Cholecystectomy, Gastric bypass, GI series, H/O thyroidectomy., Hernia repair, Hernia repair, stomach surgeries, multipule. Medications Inpatient No active inpatient medications Lee (more content not included)... Normal [facility] Comment on above: Result Comment: Elec tronically Signed By: Dillon Desai PA-C\.br\Date and Time Signed: 01/14/23 18:43 EST\.br\Electronically Co-Signed By: Ladarius Mack DO\.br\Date and Time Co-Signed: 01/14/23 19:40 EST ED Patient Education Noteon 01-14-2023 ED Patient Education Note Pulmonary Medicine Nonspecific Chest Pain, Adult Chest pain is an uncomfortable, tight, or painful feeling in the chest. The pain can feel like a crushing, aching, or squeezing pressure. A person can feel a burning or tingling sensation. Chest pain can also be felt in your back, neck, jaw, shoulder, or arm. This pain can be worse when you move, sneeze, or take a deep breath. Chest pain can be caused by a condition that is life-threatening. This must be treated right away. It can also be caused by something that is not life-threatening. If you have chest pain, it can be hard to know the difference, so it is important to get help right away to make sure that you do not have a serious condition. Some life-threatening causes of chest pain include: ? Heart attack. ? A tear in the body's main blood vessel (aortic dissection). ? Inflammation around your heart (pericarditis). ? A problem in the lungs, such as a blood clot (pulmonary embolism) or a collapsed lung (pneumothorax). Some non life-threatening causes of chest pain include: ? Heartburn. ? Anxiety or stress. ? Damage to the bones, muscles, and cartilage that make up your chest wall. ? Pneumonia or bronchitis. ? Shingles infection (varicella-zoster virus). Your chest pain may come and go. It may also be constant. Your health care provider will do tests and other studies to find the cause of your pain. Treatment will depend on the cause of your chest pain. Follow these instructions at home: Medicines ? Take ynci-sge-ynfphms and prescription medicines only as told by your health care provider. ? If you were prescribed an antibiotic medicine, take it as told by your health care provider. Do not stop taking the antibiotic even if you start to feel better. Activity ? Avoid any activities that cause chest pain. ? Do not lift anything that is heavier than 10 lb (4.5 kg), or the limit that you are told, until your health care provider says that it is safe. ? Rest as directed by your health care provider. ? Return to your normal activities only as told by your health care provider. Ask your health care provider what activities are safe for you. Lifestyle ? Do not use any products that contain nicotine or tobacco, such as cigarettes, e-cigarettes, and chewing tobacco. If you need help quitting, ask your health care provider. ? Do not drink alcohol. ? Make healthy lifestyle changes as recommended. These may include: ? Getting regular exercise. Ask your health care provider to suggest some exercises that are safe for you. ? Eating a heart-healthy diet. This includes plenty of fresh fruits and vegetables, whole grains, low-fat (lean) protein, and low-fat dairy products. A dietitian can help you find healthy eating options. ? Maintaining a healthy weight. ? Managing any other health conditions you may have, such as high blood pressure (hypertension) or diabetes. ? Reducing stress, such as with yoga or relaxation techniques. General instructions ? Pay attention to any changes in your symptoms. ? It is up to you to get the results of any tests that were done. Ask your health care provider, or the department that is doing the tests, when your results will be ready. ? Keep all follow-up visits as told by your health care provider. This is important. ? You may be asked to go for further testing if your chest pain does not go away. Contact a health care provider if: ? Your chest pain does not go away. ? You feel depressed. ? You have a fever. ? You notice changes in your symptoms or develop new symptoms. Get help right away if: ? Your chest pain gets worse. ? You have a cough that gets worse, or you cough up blood. ? You have severe pain in your abdomen. ? You faint. ? You have sudden, unexplained chest discomfort. ? You have sudden, unexplained discomfort in your arms, back, neck, or jaw. ? You have shortness of breath at any time. ? You suddenly start to sweat, or your skin gets clammy. ? You feel nausea or you vomit. ? You suddenly feel lightheaded or dizzy. ? You have severe weakness, or unexplained weakness or fatigue. ? Your heart begins to beat quickly, or it feels like it is skipping beats. These symptoms may represent a serious problem that is an emergency. Do not wait to see if the symptoms will go away. Get medical help right away. Call your local emergency services (911 in the [place] Do not drive yourself to the hospital. Summary ? Chest pain can be caused by a condition that is serious and requires urgent treatment. It may also be caused by something that is not life-threatening. ? Your health care provider may do lab tests and other studies to find the cause of your pain. ? Follow your health care provider's instructions on taking medicines, making lifestyle changes, and getting emergency treatment if symptoms become worse. ? Keep all follow-up visits as told by your (more content not included)... Normal [facility] ED Patient Summaryon 023 ED Patient Summary (Inserted Image. Lupe ble to display) [address] [address] Patient Discharge Instructions Person Information Name: ESME MORFIN Age: 47 Years Arrival Date: 01/14/2023 10:43:09 Discharge Diagnosis: Chest pain Primary Care Physician: Farhat Pineda MD Provider Information Primary Provider: Ladarius Mack DO Advanced Research Scholar:Dillon Desai PA-C The exam and treatment you received in the Emergency Department were for an urgent problem and are not intended as complete care. It is important that you follow up with a doctor, nurse practitioner, or physician?s mortgage assistant for ongoing care. If your symptoms become worse or you do not improve as expected and you are unable to reach your usual health care provider, you should return to the Emergency Department. We are available 24 hours a day. ESME MORFIN has been given the following list of patient education materials, prescriptions and follow-up instructions: Follow-up Instructions: With: Address: When: Farhat Edwin [address] [place] [address], [address] [place] [phone] Business (1) In 3 days 01/17/2023 In the event that this physician does not participate in your insurance network, please consult with your insurance company to find a nearby participating provider. Patient Education Materials: Nonspecific Chest Pain, Adult A MESSAGE TO ALL PATIENTS REGARDING OPIOIDS PRESCRIPTION OPIOIDS: WHAT YOU NEED TO KNOW Prescription opioids can be used to help relieve hjilgxsx-kx-desnuc pain and are often prescribed following a surgery or injury, or for certain health conditions. These medications can be an important part of the treatment but also come with serious risks. It is important to work with your healthcare provider to make sure you are getting the safest, most effective care. WHAT ARE THE RISKS AND SIDE EFFECTS OF OPIOID USE? Prescription opioids carry serious risks of addiction and overdose, especially with prolonged use. An opioid overdose, often marked by slowed breathing, can cause sudden . The use of prescription opioids can have a number of side effects as well, even when taken as directed: ? Tolerance?meaning you might need to take more of the medication for the same pain relief ? Physical dependence?meaning you have symptoms of withdrawal when a medication is stopped ? Increased sensitivity to pain ? Constipation ? Nausea, vomiting, and dry mouth ? Sleepiness and dizziness ? Confusion ? Depression ? Low levels of testosterone that can result in lower sex drive, energy, and strength ? Itching and sweating RISKS ARE GREATER WITH: ? History of drug misuse, substance use disorder, or overdose ? Mental health conditions (such as depression or anxiety) ? Sleep apnea ? Older age (65 years and older) ? Avoid alcohol while taking prescription opioids. Also, unless specifically advised by your health care provider, medications to avoid include: ? Benzodiazepines (such as Xanax or Valium) ? Muscle relaxants (such as Soma or Flexeril) ? Hypnotics (such as Ambien or Lunesta) ? Other prescription opioids KNOW YOUR OPTIONS Talk to your health care provider about ways to manage your pain that don?t involve prescription opioids. Some of these options may actually work better and have fewer risks and side effects. Options may include: ? Pain relievers such as acetaminophen, ibuprofen, and naproxen ? Some medication that are also used for depression or seizures ? Physical therapy and exercise ? Cognitive behavioral therapy, a psychological, goal-directed approach, in which patients learn how to modify physical, behavioral, and emotional triggers of pain and stress. IF YOU ARE PRESCRIBED OPIOIDS FOR PAIN: ? Never take opioids in greater amounts or more often than prescribed. ? Follow up with your primary health care provider. o Work together to create a plan on how to manage your pain. o Talk about ways to help manage your pain that don?t involve prescription opioids. o Talk about any and all concerns and side effects. ? Help prevent misuse and abuse o Never sell or share prescription opioids. o Never use another person?s prescription opioids. ? Store prescription opioids in a secure place and out of reach of others (this may include visitors, children, friends, and family). ? Safely dispose of unused prescription opioids: Find your community drug take-back program or your pharmacy mail-back program, or flush them down the toilet, following guidance from the Food and Drug Administration (www.fda.gov/Drugs/Resourc esForYou). ? Visit www.cdc.gov/drugoverdose to learn about the risks of opioids abuse and overdose. ? If you believe you may be struggling with addiction, tell your health care advocate and ask for guidance or call SAMHSA?S National Helpline at 2-616-892-HELP. v Source: U (more content not included)... Normal [facility] HEMATOLOGYOrdered By: SYSTEM SYSTEM on 01-14-2023 Basophils/100 WBC (Bld) 0.6 % Normal 0.0 - 2.0 % [facility] Basophils/Leukocytes Auto (Bld) [Pure # fraction] 0.0 E9/L Normal 0.0 - 0.2 E9/L [facility] Eosinophils/100 WBC (Bld) 2.0 % Normal 0.0 - 8.0 % [facility] Eosinophils/Leukocytes Auto (Bld) [Pure # fraction] 0.1 E9/L Normal 0.0 - 0.5 E9/L [facility] Lymphocytes/100 WBC (Bld) 24.2 % Normal 14.0 - 50.0 % [facility] Lymphocytes/Leukocytes Auto (Bld) [Pure # fraction] 1.8 E9/L Normal 1.0 - 4.0 E9/L [facility] Monocytes/100 WBC (Bld) 7.4 % Normal 4.0 - 14.0 % [facility] Monocytes/Leukocytes Auto (Bld) [Pure # fraction] 0.5 E9/L Normal 0.2 - 1.0 E9/L [facility] Neutrophils/100 WBC (Bld) 65.8 % Normal 36.0 - 75.0 % [facility] Neutrophils/Leukocytes Auto (Bld) [Pure # fraction] 4.9 E9/L Normal 2.0 - 7.5 E9/L [facility] HEMATOLOGYOrdered By: Belinda Morgan on 01-14-2023 Erythrocyte distribution width (RBC) [Ratio] 14.1 % Normal 10.9 - 14.2 % [facility] Hematocrit (Bld) [Volume fraction] 44.1 % Normal 34.0 - 46.0 % [facility] Hemoglobin (Bld) [Mass/Vol] 14.5 g/dL Normal 12.0 - 16.0 gm/dL [facility] MCH (RBC) [Entitic mass] 28.3 pg Normal 27.0 - 34.0 pg [facility] MCHC (RBC) [Mass/Vol] 33.0 g/dL Normal 31.4 - 36.0 gm/dL [facility] MCV (RBC) [Entitic vol] 85.8 fL Normal 80.0 - 100.0 fL [facility] Platelet mean volume (Bld) [Entitic vol] 8.8 fL Normal 6.4 - 10.8 fL [facility] HemeAuto[facility] Platelets (Bld) [#/Vol] 256.0 E9/L Normal 150.0 - 500.0 E9/L [facility] RBC (Bld) [#/Vol] 5.1 E12/L Normal 4.3 - 5.9 E12/L [facility] WBC corrected for nucl RBC Auto (Bld) [#/Vol] 7.4 E9/L Normal 4.0 - 11.0 E9/L [facility] Monitor Recordon 01-14-2023 Monitor Record [id number] Normal [facility] PT & PTTon 01-14-2023 aPTT Coag (PPP) [Time] 30.4 second(s) Normal 25.1-36.5 [facility] Comment on above: Result Comment: Para meter 15 days - 4 weeks 1 - 5 months 6 - 11 months 1 - 5 years 6 - 10 years 11 - 17 years PTT Mean: 35.4 (27.6-45.6) Mean: 33.5 (24.8-40.7) Mean: 32.4 (25.1-40.7) Mean: 31.6 (24.0-39.2) Mean: 31.6 (26.9-38.7) Mean: 31.0 (24.6-38.4) Pediatric Reference ranges were obtained from a study by Jimi Tompkins et al. prepared from 1437 samples obtained at 7 different centers using the same coagulation reagent and instrumentation as [facility]. Currently there are no coagulation studies available worldwide for children to 14 days, and no normal ranges. Heparin therapeutic range (represented by Anti-Factor Xa activity of 0.2 - 0.4 U/mL) corresponds to PTT of 56.6 - 109.0 sec. Performed By: #### 1 [id number] #### [facility] [address] [place] [id number] INR Coag (PPP) [Relative time] 1.0 {INR} Invalid Interpretation Code [facility] Comment on above: Result Comment: INR results are specifically intended to assess patients stabilized on long-term Anticoagulation therapy suggested INR?s ?Less Intensive Anticoagulation? 2.0 ? 3.0 Conventional Range 3.0 ? 4.5 Performed By: #### 1 [id number] #### [facility] [address] [place] [address] PT Coag (PPP) [Time] 10.9 second(s) Normal 9.4-12.5 [facility] Comment on above: Result Comment: 15 d ays - 4 weeks 1 - 5 months 6 -11 months 1 ? 5 years 6 ? 10 years 11 -17 years Mean: 11.2 (9.5 ? 12.6) Mean: 11.0 (9.7 ? 12.8) Mean: 11.0 (9.8 ? 13.0) Mean: 11.3 (9.9 ? 13.4) Mean: 11.7 (10.0 ? 14.6) Mean: 11.8 (10.0 - 14.1) Pediatric Reference ranges were obtained from a study by Jimi Tompkins et al. prepared from 1437 samples obtained at 7 different centers using the same coagulation reagent and instrumentation as [facility]. Currently there are no coagulation studies available worldwide for children to 14 days, and no normal ranges. Performed By: #### 1 [id number], [id number], [id number], [id number], [id number] #### [facility] [address] [place] [address] Troponin 0 Hr.on 01-14-2023 Troponin I.cardiac [Mass/Vol] 5.70 pg/mL Low 10.10-27.10 [facility] Comment on above: Result Comment: The 95% CI (Confidence Interval) PPV (Positive Predictive Value) for myocardial infarction in females is 38 pg/mL, in males 51 pg/mL. The results should be used in conjunction with clinical conditions of myocardial infarction. (Access High Sensitivity Troponin I Instructions For Use, Gianni [place], September 2017) Performed By: #### 1 [id number], [id number], [id number], [id number], [id number] #### [facility] [address] [place] [address] Troponin 3 Hr.on 01-14-2023 Troponin I.cardiac [Mass/Vol] 3.80 pg/mL Low 10.10-27.10 [facility] Comment on above: Result Comment: The 95% CI (Confidence Interval) PPV (Positive Predictive Value) for myocardial infarction in females is 38 pg/mL, in males 51 pg/mL. The results should be used in conjunction with clinical conditions of myocardial infarction. (Access High Sensitivity Troponin I Instructions For Use, Gianni [place], September 2017) Performed By: #### 1 [id number], [id number], [id number], [id number], [id number] #### [facility] [address] [place] [address] XR Chest Single Viewon 01-14 XR Chest Single View Exam Date/Time: 01/14/2023 11:28 EST Reason for Exam: Chest pain Report IMPRESSION: There are no acute cardiopulmonary changes. CLINICAL HISTORY: Chest pain EXAMINATION: XR Chest Single View COMPARISON: FINDINGS: The cardiomediastinal silhouette is unremarkable. The lungs are free of infiltrates effusions or consolidations. There are no acute osseous changes. Ordering Provider: Ladarius Mack FINAL REPORT Dictated: 01/14/2023 11:33 am Roman Ellis MD, V. Signed (Electronic Signature): 01/14/2023 11:33 am Signed by: Roman Ellis MD, V. Transcribed by: CHARMAINE Technologist: PANCHO Technical Comments Radiation Dose: Ka,r in mGy = na DAP = na Normal [facility] eGFRon 01-14-2023 GFR/1.73 sq M.predicted among non-blacks MDRD (S/P/Bld) [Vol rate/Area] 69 mL/min/1.73 m2 Normal >=59 [facility] Comment on above: Order Comment: Order added by Discern Expert. Result Comment: Counseling Specialist mikey kidney disease could be indicated at eGFR's of less than 60 mL/min/1.73m2. Kidney failure is indicated at less than 15 mL/min/1.73m2. Performed By: #### 1 [id number], [id number], [id number], [id number], [id number] #### [facility] [address] [place] [address] Zoey 01-13-2023 FRANKN Telephone (PALORA) -- ESME MORFIN ([id number]) 1975 F Date Time Provider Department 01/13/[address] During your visit today, we recorded the following information about you: Mimi Gnozales LPN 01/13/2023 10:34 AM Signed Patient not here for [facility] appt today. Attempted to reach via phone call, no answer. Left message with [facility] scheduling number. Please assist with rescheduling. Mimi Gonzales LPN Allergies As of Date: 01/13/2023 Noted Allergy Reaction Contrast Dye (IODINE) 11/04/2020 14 - Other: See Comments MOBIC (MELOXICAM) 08/05/2016 5 - Intolerance Comments: GI bleed with transfusion MOTRIN (IBUPROFEN) 11/06/2015 14 - Other: See Comments Comments: GI Bleed NSAIDS (NON-STEROIDAL ANTI-INFLAM*03/05/2016 16 - Unknown PREDNISONE 08/05/2016 15 - Contraindication-Medical Parnell* Comments: GI bleed SCOPOLAMINE 12/01/2016 1 - Mental Status Change Comments: Paranoia, confusion, hallucination Date Reviewed: 01/05/2023 Reviewed by: Chiara Almaraz MA - Fully Assessed Reason for Visit: Missed Appointment [1304] Prescriptions as of 01/13/2023 - busPIRone (BUSPAR) 7.5 mg tablet Take 7.5 mg by mouth three times a day. - escitalopram oxalate (LEXAPRO) 10 mg tablet Take 10 mg by mouth once daily. - Mirtazapine (REMERON) 7.5 mg tablet Take 7.5 mg by mouth daily at bedtime. - rOPINIRole (REQUIP) 0.5 mg tablet Take 0.5 mg by mouth daily at bedtime. - hydrOXYzine pamoate (VISTARIL) 25 mg capsule Take 25 mg by mouth two times a day as needed for anxiety. - ergocalciferol 50,000 unit capsule (VITAMIN D2, DRISDOL) Take 1 capsule by mouth three times a week. - levothyroxine (SYNTHROID) 75 mcg tablet Take 1 tablet by mouth once daily. - tretinoin (RETIN-A) 0.025 % topical cream Apply to affected area daily at bedtime. - Syringe with Needle, Safety (EASY TOUCH SHEATHLOCK SYRG-NDL) 3 mL 25 gauge x 1 syrg Weekly methotrexate injections, monthly vit b12 injections as instructed - cyanocobalamin 1,000 mcg/mL inject 1 milliliter intramuscularly ONCE A MONTH as instructed - diclofenac (VOLTAREN ARTHRITIS PAIN) 1 % topical gel Apply 4 g to affected area four times daily. - dulaglutide (TRULICITY) 0.75 mg/0.5 mL pen injector Inject 0.75 mg subcutaneously one time a week. - CPAP/BIPAP/OTHER Type .CPAPSettings into a note to see current settings/supplies/DME information. - zaleplon (SONATA) 10 mg capsule Take 10 mg by mouth daily at bedtime. Pt takes 10mg qhs - acarbose (PRECOSE) 50 mg tablet Take 1 tablet by mouth three times daily. - glucagon (BAQSIMI) 3 mg/actuation nasal spray Use 1 [place] in the nose as needed for low blood sugar. May repeat after 15 minutes using a new device if there is no response. - Blood-Glucose Sensor (FREESTYLE NBA 3 SENSOR) vinny Use to check glucose 4 times or more daily. Change sensor every 14 days. - blood sugar diagnostic (TRUE METRIX GLUCOSE TEST STRIP) test strip Use as instructed to check glucose 4 x daily or more as needed. - CPAP/BIPAP/OTHER Type .CPAPSettings into a note to see current settings/supplies/DME information. - ALPRAZolam (XANAX) 0.25 mg tablet Take 0.5 tablets by mouth as needed. - meclizine (ANTIVERT) 25 mg tab Take 0.5-1 tablets by mouth three times daily as needed (for dizziness.). - BIPAP Lifetime supplies for BiPAP 12/8 cm H20 including mask, heated tubing, humidity, filters. Dx: G47.33 - promethazine (PHENERGAN) 25 mg tablet Take 25 mg by mouth four times daily as needed. - pantoprazole DR (PROTONIX) 40 mg tablet Take 1 tablet by mouth as needed. 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 TALIA (obstructive sleep apnea) [G47.33] GI bleeding [K92.2] 06/08/2010 Secondary osteoarthritis of multiple sites [M15*08/05/2016 Vitamin B12 deficiency (dietary) anemia [D51.8] 08/09/2016 Rheumatoid arthritis of multiple sites without *08/09/2016 Positive anti-CCP test [R76.8] 08/09/2016 Nausea and vomiting in adult [R11.2] 08/20/2016 Morbid obesity due to excess calories (HCC) [E6*08/31/2016 12/01/2016 Hernia, paraesophageal [K44.9] 08/31/2016 12/01/2016 Morbid obesity (HCC) [E66.01] 11/24/2016 10/23/2022 Pneumonia [J18.9] 12/06/2016 Postoperative malabsorption [K91.2] 03/04/2017 Diarrhea, unspecified [R19.7] 09/24/2017 Vomiting of fecal matter with nausea [R11.13] 09/24/2017 Type 2 diabetes mellitus without retinopathy (H* Fibromyalgia [M79.7] 09/08/2009 Mitral and aortic leola (more content not included)... Normal [facility] HISTORY PHYSICALon HISTORY PHYSICAL HNO ID: [id number] Author: Gloria Malone APRN.[employer] HAND Service: ? Author Type: Nurse Practitioner Type: HANDP Filed: 01/15/2023 10:11 AM Note Text: Normal [facility] Alanine aminotransferase [En zymatic activity/volume] in Serum or PlasmaOrdered By: Bipin Roth on 01-09-2023 ALT [Catalytic activity/Vol] 37 U/L 7-52 [facility] Albumin [Mass/volume] in Ser um or Plasma by Bromocresol green (BCG) dye binding methoOrdered By: Bipin Roth on 01-09-2023 Albumin BCG dye [Mass/Vol] 4.5 g/dL 3.5-5.7 [facility] Alkaline phosphatase [Enzyma tic activity/volume] in Serum or PlasmaOrdered By: Bipin Roth on 01-09-2023 ALP [Catalytic activity/Vol] 179 U/L 34-104 [facility] Amphetamine Screen Ql (U)Ord ered By: Bipin Roth on 01-09-2023 Amphetamines Ql (U) Negative Negative [facility] Aspartate aminotransferase [ Enzymatic activity/volume] in Serum or PlasmaOrdered By: Bipin Roth on 01-09-2023 AST [Catalytic activity/Vol] 35 U/L 13-39 [facility] Automated erythrocytes count in urine sediment (number/area)Ordered By: Bipin Roth on 01-09-2023 RBC Auto (Urine sed) [#/Area] 5-9 [HPF] 0-4 [facility] Automated leukocytes count i n urine sediment (number/area)Ordered By: Bipin Roth on 01-09-2023 WBC Auto (Urine sed) [#/Area] 3-4 [HPF] 0-4 [facility] Automated urine hyaline cast s count (number/volume)Ordered By: Bipin Roth on 01-09-2023 Hyaline casts Auto (U) [#/Vol] 3-4 [LPF] 0-1 [facility] Barbiturates [Presence] in U rine by Screen methodOrdered By: Bipin Roth on 01-09-2023 Barbiturates Screen Ql (U) Negative Negative [facility] Basophils Auto (Bld) [#/Vol] Ordered By: Bipin Roth on 01-09-2023 Basophils (Bld) [#/Vol] 0.0 10*3/uL 0.0-0.2 [facility] Basophils/100 WBC Auto (Bld) Ordered By: Bipin Roth on 01-09-2023 Basophils/100 WBC (Bld) 0.4 % . [facility] Benzodiazepines Screen Ql (U )Ordered By: Bipin Roth on 01-09-2023 Benzodiazepines Ql (U) Positive Negative [facility] Benzoylecgonine [Presence] i n Urine by Screen methodOrdered By: Bipin Roth on 01-09-2023 Benzoylecgonine Screen Ql (U) Negative Negative [facility] Bilirubin Test strip Ql (U)O rdered By: Bipin Roth on 01-09-2023 Bilirubin Ql (U) Negative Negative [facility] Bilirubin.total [Mass/volume ] in Serum or PlasmaOrdered By: Bipin Roth on 01-09-2023 Bilirubin [Mass/Vol] 0.6 mg/dL 0.3-1.[address] [facility] Calcium [Mass/volume] in Ser um or PlasmaOrdered By: Bipin Roth on 01-09-2023 Calcium [Mass/Vol] 9.2 mg/dL 8.6-10.3 [facility] Cannabinoids [Presence] in U rine by Screen methodOrdered By: Bipin Roth on 01-09-2023 Cannabinoids Screen Ql (U) Negative Negative [facility] Comment on above: These are unconfirme d results and should not be used for legal purposes. Drug Cut-Off Concentration: AMPH 1000 ng/mL LIYA 200 ng/mL HAILEY 200 ng/mL COCM 300 ng/mL OP 300 ng/mL PCP 25 ng/mL THC 20 ng/mL Carbon dioxide, total [Moles /volume] in Serum or PlasmaOrdered By: Bipin Roth on 01-09-2023 CO2 [Moles/Vol] 22.4 mmol/L 21.0-31.0 [facility] Casts typing in urine sedime nt by light microscopyOrdered By: Bipin Roth on 01-09-2023 Casts LM Nom (Urine sed) None seen [LPF] None Seen [facility] Chloride [Moles/volume] in S jemal or PlasmaOrdered By: Bipin Gonzalez on 01-09-2023 Chloride [Moles/Vol] 105 mmol/L 98-[address] [facility] Color Auto (U)Ordered By: Tamika ng Gonzalez on 01-09-2023 Color (U) Yellow Yellow [facility] Complete Blood Count Auto Di ffon 01-09-2023 Basophils (Bld) [#/Vol] 0.0 10*3/uL Normal 0.0-0.2 [facility] Comment on above: Result Comment: PERF ORMED BY: [place] [address] PATHOLOGIST MACHINIST CLASS B NETO FLOERNTINO M.D. Performed By: #### U EVELYNE UA, [facility] #### [address] Basophils/100 WBC (Bld) 0.4 % Normal . [facility] Comment on above: Performed By: #### U [facility], [facility] #### [address] Eosinophils (Bld) [#/Vol] 0.2 10*3/uL Normal 0.0-0.45 [facility] Comment on above: Performed By: #### U EVELYNE UA, [facility] #### [address] Eosinophils/100 WBC (Bld) 2.0 % Normal . [facility] Comment on above: Performed By: #### U RDS UA, CG #### [address] Erythrocyte distribution width (RBC) [Ratio] 13.8 % Normal 11.9-15.3 [facility] Comment on above: Performed By: #### U RDS, UA, CG #### [address] Hematocrit (Bld) [Volume fraction] 42.6 % Normal 34.0-46.4 [facility] Comment on above: Performed By: #### U RDS, UA, UHCG #### [address] Hemoglobin (Bld) [Mass/Vol] 14.2 g/dL Normal 11.8-15.4 [facility] Comment on above: Performed By: #### U RDS, UA, UHCG #### [address] Lymphocytes (Bld) [#/Vol] 2.8 10*3/uL Normal 1.00-4.8 [facility] Comment on above: Performed By: #### U RDS, UA, UHCG #### [address] Lymphocytes/100 WBC (Bld) 31.6 % Normal . [facility] Comment on above: Performed By: #### U RDS, UA, UHCG #### [address] MCH (RBC) [Entitic mass] 28.4 pg Normal 24.7-34.3 [facility] Comment on above: Performed By: #### U RDS, UA, UHCG #### [address] MCV (RBC) [Entitic vol] 85.0 fL Normal 80-100 [facility] Comment on above: Performed By: #### U RDS, UA, UHCG #### [address] Mean Corpuscular HGB Conc 33.4 g/dL Normal 32.0-35.0 [facility] Comment on above: Performed By: #### U RDS, UA, UHCG #### [place] [address] [place] Monocytes (Bld) [#/Vol] 0.6 10*3/uL Normal 0.0-0.8 [facility] Comment on above: Performed By: #### U RDS, UA, UHCG #### [place] [address] [place] Monocytes/100 WBC (Bld) 17.26 % Normal 0.00-20.00 [facility] Comment on above: Performed By: #### U RDS, UA, UHCG #### [facility] [address] Monocytes/100 WBC (Bld) 7.2 % Normal . [facility] Comment on above: Performed By: #### U RDS, UA, UHCG #### [facility] [address] Neutrophils (Bld) [#/Vol] 5.2 10*3/uL Normal 1.8-7.7 [facility] Comment on above: Performed By: #### U RDS, UA, UHCG #### [address] Neutrophils/100 WBC (Bld) 58.8 % Normal . [facility] Comment on above: Performed By: #### U RDS, UA, UHCG #### [address] NRBC% 0.1 /100{WBC} Normal 0-0.5 [facility] Comment on above: Performed By: #### U RDS, UA, UHCG #### [address] Platelet mean volume (Bld) [Entitic vol] 9.1 fL Normal 6.3-10.7 [facility] Comment on above: Performed By: #### U RDS, UA, UHCG #### [place] [address] [place] Platelets (Bld) [#/Vol] 272 10*3/uL Normal 150-450 [facility] Comment on above: Performed By: #### U RDS, UA, UHCG #### [place] [address] [place] RBC (Bld) [#/Vol] 5.02 10*6/uL High 3.60-5.00 [facility] Comment on above: Performed By: #### U RDS, UA, UHCG #### [address] WBC (Bld) [#/Vol] 8.8 10*3/uL Normal 3.8-11.6 [facility] Comment on above: Performed By: #### U RDS, UA, UHCG #### [address] Comprehensive Metabolic Pane christiano 01-09-2023 Albumin [Mass/Vol] 4.5 g/dL Normal 3.5-5.7 [facility] Comment on above: Performed By: #### U RDS, UA, UHCG #### [address] Albumin/Globulin [Mass ratio] 1.4 {ratio} Normal [facility] Comment on above: Performed By: #### U RDS, UA, UHCG #### [address] ALP [Catalytic activity/Vol] 179 U/L High 34-104 [facility] Comment on above: Performed By: #### U RDS, UA, UHCG #### [address] ALT [Catalytic activity/Vol] 37 U/L Normal 7-52 [facility] Comment on above: Performed By: #### U RDS, UA, UHCG #### [address] Anion gap [Moles/Vol] 16.4 mmol/L High 6.0-15.0 [facility] Comment on above: Performed By: #### U RDS, UA, UHCG #### [address] AST [Catalytic activity/Vol] 35 U/L Normal 13-39 [facility] Comment on above: Performed By: #### U RDS, UA, UHCG #### [address] Bilirubin [Mass/Vol] 0.6 mg/dL Normal 0.3-1.0 [facility] Comment on above: Performed By: #### U RDS, UA, UHCG #### [address] Calcium [Mass/Vol] 9.2 mg/dL Normal 8.6-10.3 [facility] Comment on above: Performed By: #### U RDS, UA, UHCG #### [address] Chloride [Moles/Vol] 105 mmol/L Normal 98-107 [facility] Comment on above: Performed By: #### U RDS, UA, UHCG #### [address] CO2 [Moles/Vol] 22.4 mmol/L Normal 21.0-31.0 [facility] Comment on above: Performed By: #### U RDS, UA, UHCG #### [address] Creatinine [Mass/Vol] 1.02 mg/dL Normal 0.60-1.20 [facility] Comment on above: Performed By: #### U RDS, UA, UHCG #### [address] Creatinine Clr Calc Pharmacy 71.79 Normal [facility] Comment on above: Result Comment: PERF ORMED BY: [place] [address] PATHOLOGIST MACHINIST CLASS B NETO FLORENTINO M.D. Performed By: #### U RDS, UA, UHCG #### [address] GFR/1.73 sq M.predicted MDRD (S/P/Bld) [Vol rate/Area] mL/min/{1.73_m2} Normal [facility] Comment on above: Performed By: #### U RDS, UA, UHCG #### [address] Globulin (S) [Mass/Vol] 3.3 g/dL Normal [facility] Comment on above: Performed By: #### U RDS, UA, UHCG #### [address] Glucose [Mass/Vol] 112 mg/dL High 70-100 [facility] Comment on above: Result Comment: [place] Glucose Reference Range is dependent on time and content of last meal. Glucose of more than 200 mg/dL in a nonstressed, ambulatory subject supports the diagnosis of Diabetes Mellitus. ADA recommended reference range Performed By: #### U RDS, UA, UHCG #### [address] Potassium [Moles/Vol] 3.8 mmol/L Normal 3.5-5.1 [facility] Comment on above: Performed By: #### U RDS, UA, UHCG #### [address] Protein [Mass/Vol] 7.8 g/dL Normal 6.4-8.9 [facility] Comment on above: Performed By: #### U RDS, UA, UHCG #### [address] Sodium [Moles/Vol] 140 mmol/L Normal 136-145 [facility] Comment on above: Performed By: #### U RDS, UA, UHCG #### [address] Urea nitrogen [Mass/Vol] 11 mg/dL Normal 7-25 [facility] Comment on above: Performed By: #### U RDS, UA, UHCG #### [address] Creatinine [Mass/volume] in Serum or PlasmaOrdered By: Bipin Roth on 01-09-2023 Creatinine [Mass/Vol] 1.02 mg/dL 0.60-1.20 [facility] Dipstick and Microscopicon 1 03-12-2022 Appearance (U) Cloudy Critically abnormal Clear [facility] Comment on above: Order Comment: Name Collection Type:: Clean-Voided Midstream Performed By: #### U RDS, ADDONUAPLUS #### [place] [address] [place] Bacteria,Urine 1+ High None Seen [facility] Comment on above: Order Comment: Name Collection Type:: Clean-Voided Midstream Performed By: #### U RDS, ADDONUAPLUS #### [facility] [address] [place] [address] [place] Bilirubin,Urine Negative Normal Negative [facility] Comment on above: Order Comment: Name Collection Type:: Clean-Voided Midstream Performed By: #### U RDS, ADDONUAPLUS #### [facility] [address] [place] [address] [place] Color (U) Yellow Normal Yellow [facility] Comment on above: Order Comment: Name Collection Type:: Clean-Voided Midstream Performed By: #### U RDS, ADDONUAPLUS #### [place] [address] [place] Glucose Ql (U) Normal Normal Normal [facility] Comment on above: Order Comment: Name Collection Type:: Clean-Voided Midstream Performed By: #### U RDS, ADDONUAPLUS #### [facility] [address] [place] [address] [place] Hyaline Casts,Urine 3-4 High 0-1 [facility] Comment on above: Order Comment: Name Collection Type:: Clean-Voided Midstream Performed By: #### U RDS, ADDONUAPLUS #### [facility] [address] [place] [address] [place] Ketones Ql (U) Trace High Negative [facility] Comment on above: Order Comment: Name Collection Type:: Clean-Voided Midstream Performed By: #### U RDS, ADDONUAPLUS #### [facility] [address] [place] [address] [place] Leukocyte esterase Test strip Ql (U) Negative Normal Negative [facility] Comment on above: Order Comment: Name Collection Type:: Clean-Voided Midstream Performed By: #### U RDS, ADDONUAPLUS #### [facility] [address] [place] [address] [place] Nitrite,Urine Negative Normal Negative [facility] Comment on above: Order Comment: Name Collection Type:: Clean-Voided Midstream Performed By: #### U RDS, ADDONUAPLUS #### [place] [address] [place] Occult Blood,Urine Trace High Negative [facility] Comment on above: Order Comment: Name Collection Type:: Clean-Voided Midstream Result Comment: PERF ORMED BY: [place] [address] PATHOLOGIST MACHINIST CLASS B NETO FLORENTINO M.D. Performed By: #### U RDS, ADDONUAPLUS #### [address] Other Casts,Urine None Seen Normal None Seen [facility] Comment on above: Order Comment: Name Collection Type:: Clean-Voided Midstream Result Comment: PERF ORMED BY: [place] [address] PATHOLOGIST MACHINIST CLASS B NETO FLORENTINO M.D. Performed By: #### U RDS, ADDONUAPLUS #### [address] pH (U) 6.0 [pH] Normal 5.0-9.0 [facility] Comment on above: Order Comment: Name Collection Type:: Clean-Voided Midstream Performed By: #### U RDS, ADDONUAPLUS #### [place] [address] [place] Protein,Urine Trace High Negative [facility] Comment on above: Order Comment: Name Collection Type:: Clean-Voided Midstream Performed By: #### U RDS, ADDONUAPLUS #### [place] [address] [place] RBC,Urine 5-9 High 0-4 [facility] Comment on above: Order Comment: Name Collection Type:: Clean-Voided Midstream Performed By: #### U RDS, ADDONUAPLUS #### [place] [address] [place] Specificy Egnar,Urine 1.020 Normal 1.001-1.030 [facility] Comment on above: Order Comment: Name Collection Type:: Clean-Voided Midstream Performed By: #### U RDS, ADDONUAPLUS #### [address] Squamous Epithelial Cell,Urine 10-19 High 0-2 [facility] Comment on above: Order Comment: Name Collection Type:: Clean-Voided Midstream Performed By: #### U RDS, ADDONUAPLUS #### [address] Urobilinogen,Urine >=2 High Normal [facility] Comment on above: Order Comment: Name Collection Type:: Clean-Voided Midstream Performed By: #### U RDS, ADDONUAPLUS #### [address] WBC,Urine 3-4 Normal 0-4 [facility] Comment on above: Order Comment: Name Collection Type:: Clean-Voided Midstream Performed By: #### U RDS, ADDONUAPLUS #### [address] Drug Screen,Urineon 01-10-20 23 Amphetamine Screen,Urine Negative Normal Negative [facility] Comment on above: Performed By: #### U RDS, ADDONUAPLUS #### [address] Barbiturate Screen,Urine Negative Normal Negative [facility] Comment on above: Performed By: #### U RDS, ADDONUAPLUS #### [address] Benzodiazepines Screen,Urine Positive High Negative [facility] Comment on above: Performed By: #### U RDS, ADDONUAPLUS #### [address] Cannabinoid Screen,Urine Negative Normal Negative [facility] Comment on above: Result Comment: Thes e are unconfirmed results and should not be used for legal purposes. Drug Cut-Off Concentration: AMPH 1000 ng/mL LIYA 200 ng/mL HAILEY 200 ng/mL COCM 300 ng/mL OP 300 ng/mL PCP 25 ng/mL THC 20 ng/mL PERFORMED BY: [address] [place] [address] PATHOLOGIST MACHINIST CLASS B NETO FLORENITNO M.D. Performed By: #### U RDS, ADDONUAPLUS #### [address] Cocaine Screen,Urine Negative Normal Negative [facility] Comment on above: Performed By: #### U RDS, ADDONUAPLUS #### [address] Opiate Screen,Urine Negative Normal Negative [facility] Comment on above: Performed By: #### U RDS, ADDONUAPLUS #### [address] Phencyclidine Screen,Urine Negative Normal Negative [facility] Comment on above: Performed By: #### U RDS, ADDONUAPLUS #### [address] ECG 12 lead ECGon 01-09-2023 ECG 12 lead ECG [facility] [place] [address] Electrocardiograph Report Signed Patient: Esme Morfin MR#: [id number] 36 : 1975 Acct:[id number] Age/Sex: 47 / F ADM Date: 01/09/23 Loc: ER Room: Type: [facility] ER Attending Dr: Ordering Provider: Bipin Roth Jr, MD Date of Service: 01/09/2304/02/705 ECG/ECG 12 lead ECG: Psychiatric Symptoms Copies to: Test Reason : Blood Pressure : 165/113 mmHG Vent. Rate : 103 BPM Atrial Rate : 103 BPM P-R Int : 118 ms QRS Dur : 088 ms QT Int : 390 ms P-R-T Axes : 016 -49 061 degrees QTc Int : 510 ms Sinus tachycardia Left anterior fascicular block Abnormal ECG When compared with ECG of 21-DEC-2015 14:55, No significant change was found Confirmed by OPAL MARCUS MD ([id number]) on 01/09/2023 3:40:14 PM Referred By: Electronically Signed By:OPAL MARCUS MD Transcribed By: MUS Signed By Opal Marcus MD 12/0 2/23 1540 Normal [facility] Eosinophils Auto (Bld) [#/Vo l]Ordered By: Bipin Roth on 01-09-2023 Eosinophils (Bld) [#/Vol] 0.2 10*3/uL 0.0-0.45 [facility] Eosinophils/100 WBC Auto (Bl d)Ordered By: Bipin Roth on 01-09-2023 Eosinophils/100 WBC (Bld) 2.0 % . [facility] Erythrocyte distribution wid th Auto (RBC) [Ratio]Ordered By: Bipin Roth on 01-09-2023 Erythrocyte distribution width (RBC) [Ratio] 13.8 % 11.9-15.3 [facility] Ethanol [Mass/volume] in Ser um or PlasmaOrdered By: Bipin Roth on 01-09-2023 Ethanol [Mass/Vol] mg/dL [facility] Ethanol [Mass/Vol] TNP [facility] Comment on above: Test not performed Ethyl Alcohol Profileon Ethanol [Mass/Vol] mg/dL Normal [facility] Comment on above: Performed By: #### U RDS, UA, [facility] #### [facility] [address] [place] [address] Percent Ethanol Not performed Normal [facility] Comment on above: Result Comment: PERF ORMED BY: [place] [address] PATHOLOGIST MACHINIST CLASS B NETO FLORENTINO M.D. Performed By: #### U RDS, , [facility] #### [facility] [address] [place] [address] Globulin Calc (S) [Mass/Vol] Ordered By: Bipin Roth on 01-09-2023 Globulin (S) [Mass/Vol] 3.3 g/dL [facility] Glucose [Mass/volume] in Ser um or PlasmaOrdered By: Bipin Roth on 01-09-2023 Glucose [Mass/Vol] 112 mg/dL 70-100 [facility] Comment on above: ADA recommended refe rence rangeRandom Glucose Reference Range is dependent on time and content of last meal. Glucose of more than 200 mg/dL in a nonstressed, ambulatory subject supports the diagnosis of Diabetes Mellitus. Hematocrit Auto (Bld) [Volum e fraction]Ordered By: Bipin Roth on 01-09-2023 Hematocrit (Bld) [Volume fraction] 42.6 % 34.0-46.4 [facility] Hemoglobin [Mass/volume] in BloodOrdered By: Bipin Roth on 01-09-2023 Hemoglobin (Bld) [Mass/Vol] 14.2 g/dL 11.8-15.4 [facility] Ketones Auto test strip (U) [Mass/Vol]Ordered By: Bipin Roth on 01-09-2023 Ketones (U) [Mass/Vol] Trace Negative [facility] Leukocytes [#/volume] correc imtiaz for nucleated erythrocytes in Blood by Automated counOrdered By: Bipin Roth on 01-09-2023 WBC corrected for nucl RBC Auto (Bld) [#/Vol] 8.8 10*3/uL 3.8-11.6 [facility] Lymphocytes Auto (Bld) [#/Vo l]Ordered By: Bipin Roth on 01-09-2023 Lymphocytes (Bld) [#/Vol] 2.8 10*3/uL 1.00-4.8 [facility] Lymphocytes/100 WBC Auto (Bl d)Ordered By: Bipin Roth on 01-09-2023 Lymphocytes/100 WBC (Bld) 31.6 % . [facility] MCH Auto (RBC) [Entitic mass ]Ordered By: Bipin Roth on 01-09-2023 MCH (RBC) [Entitic mass] 28.4 pg 24.7-34.3 [facility] MCHC Auto (RBC) [Mass/Vol]Or dered By: Bipin Roth on 01-09-2023 MCHC (RBC) [Mass/Vol] 33.4 g/dL 32.0-35.0 [facility] MCV Auto (RBC) [Entitic vol] Ordered By: Bipin Roth on 01-09-2023 MCV (RBC) [Entitic vol] 85.0 fL 80-100 [facility] Monocyte distribution width [Entitic volume] in Blood by AutomatedOrdered By: Bipin Roth on 01-09-2023 Monocyte distribution width Auto (Bld) [Entitic vol] 17.26 % 0.00-20.00 [facility] Monocytes Auto (Bld) [#/Vol] Ordered By: Bipin Roth on 01-09-2023 Monocytes (Bld) [#/Vol] 0.6 10*3/uL 0.0-0.8 [facility] Monocytes/100 WBC Auto (Bld) Ordered By: Bipin Roth on 01-09-2023 Monocytes/100 WBC (Bld) 7.2 % . [facility] Neutrophils Auto (Bld) [#/Vo l]Ordered By: Bipin Roth on 01-09-2023 Neutrophils (Bld) [#/Vol] 5.2 10*3/uL 1.8-7.7 [facility] Neutrophils/100 WBC Auto (Bl d)Ordered By: Bipin Roth on 01-09-2023 Neutrophils/100 WBC (Bld) 58.8 % . [facility] Nitrite Test strip Ql (U)Ord ered By: Bipin Roth on 01-09-2023 Nitrite Ql (U) Negative Negative [facility] No Panel InformationOrdered By: Bipin Roth on 01-09-2023 Estimated GFR (CKD-EPI) > 60.0 mL/Min [facility] Creatinine Clearance (Chem 71.79 [facility] Nucleated erythrocytes [Pres ence] in Blood by Automated countOrdered By: Bipin Roth on 01-09-2023 Nucleated RBC Auto Ql (Bld) 0.1 /100{WBC} 0-0.5 [facility] Opiates [Presence] in Urine by Screen methodOrdered By: Bipin Roth on 01-09-2023 Opiates Screen Ql (U) Negative Negative [facility] [place] Phencyclidine Screen Ql (U)O rdered By: Bipin Roth on 01-09-2023 Phencyclidine Ql (U) Negative Negative [facility] Platelet mean volume Auto (B ld) [Entitic vol]Ordered By: Bipin Roth on 01-09-2023 Platelet mean volume (Bld) [Entitic vol] 9.1 fL 6.3-10.7 [facility] Platelets Auto (Bld) [#/Vol] Ordered By: Bipin Roth on 01-09-2023 Platelets (Bld) [#/Vol] 272 10*3/uL 150-450 [facility] Potassium [Moles/volume] in Serum or PlasmaOrdered By: Bipin Roth on 01-09-2023 Potassium [Moles/Vol] 3.8 mmol/L 3.5-5.1 [facility] Protein Auto test strip (U) [Mass/Vol]Ordered By: Bipin Roth on 01-09-2023 Protein (U) [Mass/Vol] Trace mg/dL Negative [facility] Protein [Mass/volume] in Ser um or PlasmaOrdered By: Bipin Roth on 01-09-2023 Protein [Mass/Vol] 7.8 g/dL 6.4-8.9 [facility] RBC Auto (Bld) [#/Vol]Ordere d By: Bipin Roth on 01-09-2023 RBC (Bld) [#/Vol] 5.02 10*6/uL 3.60-5.00 [facility] Serum or plasma albumin/glob ulin mass ratioOrdered By: Bipin Roth on 01-09-2023 Albumin/Globulin [Mass ratio] 1.4 {ratio} [facility] Serum or plasma anion gap de terminationOrdered By: Bipin Roth on 01-09-2023 Anion gap [Moles/Vol] 16.4 mmol/L 6.0-15.0 [facility] Sodium [Moles/volume] in Ser um or PlasmaOrdered By: Bipin Roth on 01-09-2023 Sodium [Moles/Vol] 140 mmol/L 136-145 [facility] Specific gravity Auto test s trip (U) [Rel density]Ordered By: Bipin Roth on 01-09-2023 Specific gravity (U) [Rel density] 1.020 1.001-1.030 [facility] Squamous epithelial cells de tection in urine sediment by light microscopyOrdered By: Bipin Roth on 01-09-2023 Epithelial cells.squamous LM Ql (Urine sed) 10-19 [HPF] 0-2 [facility] Urea nitrogen [Mass/volume] in Serum or PlasmaOrdered By: Bipin Roth on 01-09-2023 Urea nitrogen [Mass/Vol] 11 mg/dL 7-25 [facility] Urine bacteria detection by automated methodOrdered By: Bipin Roth on 01-09-2023 Bacteria Auto Ql (U) 1+ None Seen [facility] Urine clarity by refractomet ry automatedOrdered By: Bipin Roth on 01-09-2023 Clarity Refractometry automated (U) Cloudy Clear [facility] Urine glucose measurement by automated test strip (mass/volume)Ordered By: Bipin Roth on 01-09-2023 Glucose Auto test strip (U) [Mass/Vol] Normal mg/dL Normal [facility] Urine hemoglobin detection b y automated test stripOrdered By: Bipin Roth on 01-09-2023 Hemoglobin Auto test strip Ql (U) Trace Negative [facility] Urine leukocyte esterase det ection by automated test stripOrdered By: Bipin Roth on 01-09-2023 Leukocyte esterase Auto test strip Ql (U) Negative Negative [facility] Urobilinogen Auto test strip (U) [Mass/Vol]Ordered By: Bipin Roth on 01-09-2023 Urobilinogen (U) [Mass/Vol] mg/dL Normal [facility] WBC Auto (Bld) [#/Vol]Ordere d By: Bipin Roth on 01-09-2023 WBC (Bld) [#/Vol] 8.8 10*3/uL 3.8-11.6 [facility] pH Auto test strip (U)Ordere d By: Bipin Roth on 01-09-2023 pH (U) 6.0 [pH] 5.0-9.0 [facility] CNOVon 01-05-2023 CNOV Office Visit (OBGYCC ) -- ESME MORFIN ([id number]) 1975 F Date Time Provider Department 01/05/23 1:45 PM [facility] During your visit today, we recorded the following information about you: Pulse Blood pressure Weight Height 80/minute 130/79 99.8 kg 1.6 m Eleanor Kenny, 01/11/2023 11:47 PM Signed CC: PMB Follow Up: Esme Morfin 47 year old here for follow up OV for postmenopausal bleeding. Reports no menses in 2 years, postmenopausal, in 08/2022 had VB for 7 days with clots and cramping, bright red. No HRT. 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 Mitral and aortic valve regurgitation 09/08/2009 Aortic insufficiency EF 60% DR Zuniga -- judged to be non-surgical and mild Nephrolithiasis TALIA (obstructive sleep apnea) 2015 on CPAP and BiPAP Postoperative malabsorption 03/04/2017 Rheumatoid arthritis (HCC) was treated with mtx plaquenil in past Thyroiditis, unspecified Thyroiditis Viral pneumonia, unspecified Pneumonia Vomiting of fecal matter PAST SURGICAL HISTORY Procedure Laterality Date ANES HRNA REPAIR UPR ABD TABDL RPR DIPHRG HRNA open 2001 COLONOSCOPY FLX DX W/COLLJ SPEC WHEN PFRMD Colonoscopy COLPO OF CERVIX WBIOPSYECC 04/04/2018 ESOPHAGOGASTRODUODENOSCOPY TRANSORAL DIAGNOSTIC EGD multiple GASTRIC BYPASS HX 2017 LAPAROSCOPY SURG CHOLECYSTECTOMY Cholecystectomy, lap LIG/TRNSXJ FLP TUBE ABDL/VAG APPR UNI/BI 1996 PAST SURGICAL HISTORY OF cardiac cath REPAIR PARAESOPHAGEAL HERNIA THYROIDECTOMY TOTAL/COMPLETE 02-04-2010 ? patial/incomplete Review of Systems: INTERNET DATABASE SPECIALIST: SEE HPI The remainder of the review of systems is negative. Exam: BP 130/79 Pulse 80 Ht 5' 3 (1.6 m) Wt 220 lb (99.8 kg) LMP 09/13/2022 (Approximate) BMI 38.97 kg/m? General: a/o x 3, NAD. Abdomen: normal, BS, soft, NT, ND,Body mass index is 38.97 kg/m?. Indication Evaluation of abnormal uterine bleeding: postmenopausal bleeding Impression The uterus is retroverted and measures 71 mm x 37 mm x 49 mm. The endometrial thickness is 6.8 mm. The right ovary measures 22 mm x 17 mm x 14 mm. There is a 1.5cm complex appearing cyst. It has some internal debris and an echogenic focus. The left ovary measures 22 mm x 19 mm x 16 mm. Physiological in appearance. There is no free fluid visualized. Recommendations Clinically correlate. Endometrial lining as above. O-RADS 2 ovarian lesion, non-simple cyst, likely benign. Follow up ultrasound is recommended in 8-12 weeks. Menstrual History Cycle: menopausal Method Transabdominal, transvaginal, 3D ultrasound examination, Color Doppler examination Uterus Uterus: Visualized Uterus position: retroverted Description of uterine malformations: normally shaped Myometrium: normal Endometrium: thickened Cervix details: normal Uterus long 71 mm Uterus ap 37 mm Uterus tr 49 mm Uterus Vol 66.2 cm? Endometrial thickness, total 6.8 mm Right Ovary Rt ovary: Visualized Outline: smooth Rt ovary D1 22 mm Rt ovary D2 17 mm Rt ovary D3 14 mm Rt ovary Vol 2.9 cm? Rt ovarian cyst(s): Cysts identified Rt ovarian cyst D1 13 mm Rt ovarian cyst D2 10 mm Rt ovarian cyst D3 11 mm Rt ovarian cyst mean 11.3 mm Rt ovarian cyst vol 0.749 cm? Rt ovarian cyst findings: Unilocular non-simple cyst (internal debris and/or incomplete septation) with smooth inner wall, echogenic foci Left Ovary Lt ovary: Visualized Outline: smooth Lt ovary morphology: normal Lt ovary D1 22 mm Lt ovary D2 19 mm Lt ovary D3 16 mm Lt ovary Vol 3.6 cm? Cul de Sac Visualized. no free fluid visualized Performed By: Jocelyne Han RDMS Read By: Janene Harrison M.D. FINAL DIAGNOSIS A. Endometrium biopsy - Strips of benign endometrial epithelium without supporting stroma - Focal findings suggestive of endometrial polyp - Rare strips of benign endocervical tissue and squamous epithelium SSMENT/PROBLEM LIST/PLANS: 47 year old WF here for PMB Follow Up: 1.) US as copied above reviewed in detail with Esme, discussed endometrial biopsy as an initial test for women with abnormal uterine bleeding due to its high sensitivity, low complication rate, and low cost. Endometrial biopsy is a more cost-effective initial approach than ultrasound when the prevalence of endometrial carcinoma is at least 15 percent. Endometrial biopsy is required for histological diagn (more content not included)... Normal [facility] ANES POSTPROC EVALon 023 ANES POSTPROC EVAL HNO ID: [id number] Author: Alvin Duque MD Service: Anesthesiology Author Type: Anesthesiologist Type: Anesthesia Postprocedure Evaluation Filed: 01/01/2023 10:02 AM Note Text: POST ANESTHESIA EVALUATION NOTE : 1975 Procedure Summary Date: 12/30/22 Room / Location: OR01 / [facility] Anesthesia Start: 735 Anesthesia Stop: 813 Procedure: ENDOMETRIAL BX W/ ENDOCERVICAL SAMPLING W/O CERVICAL DILATION (Uterus) Diagnosis: Postmenopausal bleeding Abnormal endometrial ultrasound Thickened endometrium (Postmenopausal bleeding [N95.0]) (Abnormal endometrial ultrasound [R93.5]) (Thickened endometrium [R93.89]) Surgeons: Eleanor Kenny DO Responsible Provider: Alvin Duque MD Anesthesia Type: general ASA Status: 3 Anesthesia Type: general Airway Type: LMA Last Vitals Vitals Value Taken Time BP 150/85 12/30/22 0911 Temp 36.4 ?C (97.5 ?F) 12/30/22 0907 HR SpO2 56 12/30/22 0913 Resp 20 12/30/22 0907 SpO2 100 % 12/30/22912 Vitals shown include unvalidated device data. Post Anesthesia Patient Status Patient Evaluation: PACU. PACU/ICU Patient Condition: stable. Anticipated Disposition: phase 2 then home. Neurological Status: aware and responsive. Pulmonary Status: breathing comfortably on room air Airway Control: returned to baseline unsupported. Cardiovascular Status: stable. Pain Management: clinically adequate - multimodal analgesia pain management approach Postoperative Hydration: acceptable. Intraoperative Events: no significant anesthesia events Recommendation: continue current plan of care. Anesthesia Observations No Documentation SIGNATURE: Alvin Duque MD PATIENT NAME: Esme Morfin DATE: December 30, 2022 TIME: 10:01 AM CSN: [id number] [facility] ANES PRE-OPon 12-30-2022 ANES PRE-OP HNO ID: [id number] Author: Alvin Duque MD Service: Anesthesiology Author Type: Anesthesiologist Type: Anesthesia Preprocedure Evaluation Filed: 12/30/2022 7:25 AM Note Text: ANESTHESIOLOGY DAY OF SURGERY NOTE : 1975 Procedure Information Date/Time: 12/30/22 0730 Procedure: ENDOMETRIAL BX W/ ENDOCERVICAL SAMPLING W/O CERVICAL DILATION (Uterus) Location: [facility] OR01 / [facility] OR Surgeons: Eleanor Kenny DO Estimated body mass index is 38.39 kg/m? as calculated from the following: Height as of 12/22/22: 159.4 cm (5' 2.75 ). Weight as of 12/22/22: 97.5 kg (215 lb). Most recent hematocrit and potassium results: Hematocrit 42.3 10/09/2022 Potassium 4.0 10/09/2022 Relevant Problems ANESTHESIA (+) TALIA (obstructive sleep apnea) CARDIO (+) Flushing ENDO (+) Type 2 diabetes mellitus without complication, without long-term current use of insulin (HCC) (+) Type 2 diabetes mellitus without retinopathy (HCC) GI (+) Esophageal reflux NEURO-PSYCH (+) History of cervical dysplasia PULMONARY (+) TALIA (obstructive sleep apnea) (+) Pneumonia Other (+) Rheumatoid arthritis of multiple sites without rheumatoid factor (HCC) I - PHYSICAL EVALUATION AIRWAY Patient intubated: No. Tracheostomy tube not present Mallampati: II. TM distance: >3 FB. Neck ROM: full ROM without neurological symptoms. Mouth opening: adequate. Short neck: no. Thick neck: no DENTAL Dental findings: teeth intact. Additional exam findings: no II - ANESTHESIA PLAN ASA Score: 3 Anesthetic Plan: general Airway type: LMA The patient is not a current smoker. NPO Status: adequate Anesthetic plan additional comments: Symptoms of Sleep Apnea: Formally diagnosed and compliant with therapy Previous Anesthesia: No history of adverse event Family history of anesthetic problems: None Functional Capacity Assessment:Denies chest pain and SOB with exertion. Denies change in functional capacity. History of GERD: Yes- Poorly controlled. No symptoms today. Most recent lab results: Hemoglobin 13.6 10/09/2022 Hematocrit 42.3 10/09/2022 Potassium 4.0 10/09/2022 Platelet Count 219 10/09/2022 PT Sec 10.6 05/09/2001 APTT 30.8 05/09/2001 PT INR 0.93 05/09/2001 Creatinine 0.92 10/09/2022 HCG Qualitative, Urine Negative 08/13/2017 . Beta Justine Monitoring Plan Monitoring plan: Standard ASA. Post Procedure Analgesic Plan Postoperative analgesic plan: parenteral or oral opioids and multimodal analgesia. Informed Consent Anesthetic risks, benefits, alternatives, personnel and consent discussed: yes. Patient / Responsible Republican agrees to proceed: yes Patient / Surrogate agrees to blood products: yes DNR status not reviewed with patient and/or family prior to surgery. Significant changes in the patient condition since the History and Physical, not otherwise documented in primary service progress note: no. Potential Anesthesia issues that may suggest increased risk of complications or contraindication to planned procedure: none. Vitals Value Taken Time BP 121/82 12/30/22641 Pulse 67 12/30/22641 Resp 20 12/30/22641 Temp 36.4 ?C (97.5 ?F) 12/30/22641 SpO2 98 % 12/30/22641 Facility-Administered Medications as of 12/30/2022 Medication Dose Route Frequency - lidocaine (PF) 10 mg/mL (1 %) 1-2 mg injection (XYLOCAINE) 0.1-0.2 mL INTRADERMAL PRN - lactated ringers iv infusion 5-30 mL/hr INTRAVENOUS CONTINUOUS - NaCl 0.9% iv flush bag 20 mL INTRAVENOUS PRN Outpatient Medications as of 12/30/2022 Medication Sig - acarbose (PRECOSE) 50 mg tablet Take 1 tablet by mouth three times daily. - CPAP/BIPAP/OTHER Type .CPAPSettings into a note to see current settings/supplies/DME information. - BIPAP Lifetime supplies for BiPAP 12/8 cm H20 including mask, heated tubing, humidity, filters. Dx: G47.33 - promethazine (PHENERGAN) 25 mg tablet Take 25 mg by mouth four times daily as needed. - pantoprazole DR (PROTONIX) 40 mg tablet Take 1 tablet by mouth as needed. - busPIRone (BUSPAR) 7.5 mg tablet Take 7.5 mg by mouth three times a day. - escitalopram oxalate (LEXAPRO) 10 mg tablet Take 10 mg by mouth once daily. - Mirtazapine (REMERON) 7.5 mg tablet Take 7.5 mg by mouth daily at bedtime. - rOPINIRole (REQUIP) 0.5 mg tablet Take 0.5 mg by mouth daily at bedtime. - hydrOXYzine pamoate (VISTARIL) 25 mg capsule Take 25 mg by mouth two times a day as needed for anxiety. - glucagon (BAQSIMI) 3 mg/actuation nasal spray Use 1 [place] in the nose as needed for low blood sugar. May repeat after 15 minutes using a new device if there is no response. - Blood-Glucose Sensor (FREESTYLE NBA 3 SENSOR) vinny Use to check glucose 4 times or more daily. Change sensor every 14 days. - blood sugar diagnostic (TRUE METRIX GLUCOSE TEST STRIP) test strip Use as instructed to check glucose 4 x daily or more as needed. - ALPRAZolam (XANAX) 0.25 mg tablet Take 0.5 tablets by mouth as need (more content not included)... Normal [facility] HISTORY PHYSICALon HISTORY PHYSICAL HNO ID: [id number] Author: Eleanor Kenny DO Service: Obstetrics Author Type: Physician Type: HANDP Filed: 12/30/2022 7:38 AM Note Text: UPDATED HISTORY AND PHYSICAL EXAMINATION SERVICE DATE: 12/30/2022 SERVICE TIME: 7:38 AM PHYSICAL EXAM MUST BE COMPLETED ON ADMISSION The History and Physical (completed in the past 30 days) has been reviewed and the patient has been examined. The contents accurately reflect the patient's condition with the following additions or revisions since the HANDP was completed. Examination indicates no changes. This HANDP can be found in the Electronic Medical Record dated 12/22/2022. SIGNATURE: Eleanor Kenny DO PATIENT NAME: Esme Morfin DATE: December 30, 2022 TIME: 7:38 AM [facility] NURSING PROGon 12-30-2022 NURSING PROG HNO ID: [id number] Author: Jocelyne Horta, JAKY Service: Nursing Author Type: Registered Nurse Type: Nursing Progress Note Filed: 12/30/2022 9:13 AM Note Text: PATIENT EDUCATION TOPIC: PROCEDURE / SURGERY: Post-op Teaching: Med Administration, Symptom Management, and Wound Care PATIENT NAME: Esme Morfin PATIENT LOCATION: [facility] OR POOL/FV OR POOL READINESS TO LEARN COGNITIVE ABILITY: Alert and oriented MOTIVATION TO LEARN: Eager FAMILY SUPPORT: High - Very involved in pt care INSTRUCTION PROVIDED TO: Patient and Mother PATIENT LEARNS BEST BY: Individual Instruction Written Instruction - Hand-outs Verbal Instruction FACTORS AFFECTING LEARNING: None PHYSICAL LIMITATIONS AFFECTING LEARNING: None LEARNING RESPONSE DIAGNOSIS: ADULT: Well Adult PATIENT/FAMILY RESPONSE: Verbalizes understanding of: POST-OPERATIVE INSTRUCTIONS-Correct actions to take to reduce postoperative complications METHOD OF INSTRUCTION: Individual instruction Written instruction - handouts Verbal instruction FOLLOW-UP PLAN: Patient instructed to call with any further issues INSTRUCTIONAL AIDS USED: NA SUPPLEMENTAL MATERIAL PROVIDED TO PATIENT: None REFERRAL (RECOMMENDATION): None Electronically Signed By: Jocelyne Horta [facility] NURSING PROG HNO ID: [id number] Author: Melanie Prieto, RN Service: Nursing Author Type: Registered Nurse Type: Nursing Progress Note Filed: 12/30/2022 6:09 AM Note Text: PATIENT EDUCATION TOPIC: PROCEDURE / SURGERY: Pre-op Teaching: Logistics Protocols PATIENT NAME: Esme Morfin PATIENT LOCATION: [facility] OR POOL/FV OR POOL READINESS TO LEARN COGNITIVE ABILITY: Alert and oriented MOTIVATION TO LEARN: Eager Interested FAMILY SUPPORT: None - Unavailable/disinterested INSTRUCTION PROVIDED TO: Patient PATIENT LEARNS BEST BY: Verbal Instruction FACTORS AFFECTING LEARNING: None PHYSICAL LIMITATIONS AFFECTING LEARNING: None LEARNING RESPONSE DIAGNOSIS: ADULT: Well Adult PATIENT/FAMILY RESPONSE: Verbalizes understanding of: PRE-OPERATIVE INSTRUCTIONS-Correct action to take to follow pre-operative instructions PRE-PROCEDURE INSTRUCTIONS-Correct action to take to follow pre-procedure instructions METHOD OF INSTRUCTION: Verbal instruction FOLLOW-UP PLAN: Complete - No need for follow-up INSTRUCTIONAL AIDS USED: NA SUPPLEMENTAL MATERIAL PROVIDED TO PATIENT: None REFERRAL (RECOMMENDATION): None Electronically Signed By: Melanie Prieto [facility] OPERATIVE NOon 12-30-2022 OPERATIVE NO HNO ID: [id number] Author: Eleanor Kenny DO Service: Gynecology Author Type: Physician Type: Operative Report Filed: 12/30/2022 8:13 AM Note Text: NAME: Esme Morfin MR#: [id number] DATE: 12/30/2022 SURGEON 1: Eleanor Kenny D.O. (I/primary surgeon/proceduralist performed the procedure with no assistance. No qualified resident/fellow was available. MILK PASTEURIZER 1: None. OPERATION: Endometrial biopsy. ANESTHESIA: MAC sedation. PREOPERATIVE DIAGNOSIS: 47 year old with postmenopausal bleeding. POSTOPERATIVE DIAGNOSIS: Same. OPERATIVE INDICATIONS: Per preoperative diagnosis. OPERATIVE FINDINGS: Exam under anesthesia limited by patient body habitus. OPERATIVE PROCEDURE: The risks, benefits, alternatives, and indications of the procedure were reviewed with the patient and informed consent was obtained per Dr. Kenny. The patient was identified and the procedure verified. The patient was taken to room #1 of the operating suites where MAC sedation was obtained without difficulty. The patient was then placed in the dorsal lithotomy position with the use of Babatunde stirrups and prepared and draped in the usual sterile fashion. A weighted sterile speculum was then placed in the vagina without difficulty with good visualization of the cervix. The cervix was noted to be parous and the os was patent. The anterior lip of the cervix was then grasped with a single-tooth tenaculum. The cervix was then swabbed x 3 with Betadine. The uterus was then gently sounded to 8 cm. Endometrial sampling was then achieved with a Pipelle sampling unit x 3 passes. The endometrial tissue was collected, labeled, and sent to Pathology in its entirety for evaluation. All instruments were then removed from the vagina and excellent hemostasis was noted. The patient tolerated the procedure and anesthesia well. The patient was taken to the outpatient recovery area, awake, and in stable condition to complete postoperative care. INTRAVENOUS FLUIDS: 300 ml Lactated Ringers ESTIMATED BLOOD LOSS: None. URINE OUTPUT: Not measured. DRAINS: None. SPECIMENS: Endometrial biopsy. COUNTS: All sponge, lap, and instrument counts were correct x 2. COMPLICATIONS: None. START/STOP TIME: 07:56 and 08:01 AM. Normal [facility] SURGICAL PATHOLOGYon 023 CASE REPORT Normal [facility] Comment on above: Order Comment: Speci men Type: TISSUE SPECIMEN Ordering Facility: [facility] Address: [address] [place] [address] Result Comment: Surg [facility] Pathology Report Case: [id number] Authorizing Provider: Eleanor Kenny DO Collected: 12/30/2022 08:01 AM Ordering Location: [facility] Received: 12/30/2022 09:45 AM Operating Room Pathologist: Lacy Willoughby MD Specimen: ENDOMETRIUM BIOPSY Performed By: #### S #### [facility] CLIA [id number] [address] [facility] [place] [address] [place] CLINICAL HISTORY Normal [facility] Comment on above: Order Comment: Speci men Type: TISSUE SPECIMEN Ordering Facility: [facility] Address: [address] [place] [address] Result Comment: Pre- op diagnosis: Postmenopausal bleeding [N95.0] Abnormal endometrial ultrasound [R93.5] Thickened endometrium [R93.89] Performed By: #### S #### [facility] CLIA [id number] [address] [place] [address] [place] FINAL DIAGNOSIS Normal [facility] Comment on above: Order Comment: Speci men Type: TISSUE SPECIMEN Ordering Facility: [facility] Address: [address] [place] [address] Result Comment: A. E ndometrium biopsy - Strips of benign endometrial epithelium without supporting stroma - Focal findings suggestive of endometrial polyp - Rare strips of benign endocervical tissue and squamous epithelium Performed By: #### S #### [facility] CLIA [id number] [address] [place] [address] OF [facility] FINAL PERFORMING LAB Normal [facility] Comment on above: Order Comment: Speci men Type: TISSUE SPECIMEN Ordering Facility: [facility] Address: [address] [place] [address] Result Comment: Diag nostic interpretation performed at [facility], [address] [place] [address] CLIA# [id number] Gas Plant Specialist: Moshe Craft M.D. Performed By: #### S #### [facility] CLIA [id number] [address] [place] [address] [place] GROSS DESCRIPTION Normal [facility] Comment on above: Order Comment: Speci men Type: TISSUE SPECIMEN Ordering Facility: [facility] Address: [address] [place] [address] Result Comment: A. E NDOMETRIUM BIOPSY Received in formalin are multiple red-pink, soft feathery segments of tissue mixed with gelatinous material aggregating to 2.7 x 1.7 x 0.4 cm. Totally submitted in one cassette. CL December 30, 2022 12:41 PM Gross examination performed at [facility], [address] [place] [address] Performed By: #### S #### [facility] CLIA [id number] [address] [place] [address] [place] 25(OH)D3 [facility] 2022 25-hydroxyvitamin D3 [Mass/Vol] 27.3 ng/mL Low 31.0-80.0 [facility] Comment on above: Order Comment: Speci men Type: BLOOD SPECIMEN Ordering Facility: External Submitter Address: , , Result Comment: Clas sification of 25 [place] Vitamin D status: Deficiency/Insufficiency: < or = 30 ng/ml. Sufficiency/Optimal Levels: 31-80 ng/mL Toxicity: > 100 ng/mL. Test performed by chemiluminescent immunoassay. Performed By: #### 5 5454-3 #### [facility] IA [id number] [address] [place] [address] [place] ALBUMIN/CREAT RATIO RND URon 12-22-2022 Albumin DL <= 20 mg/L (U) [Mass/Vol] mg/dL Normal [facility] Comment on above: Order Comment: Panfilo horne Type: BLOOD SPECIMEN Ordering Facility: [facility] Address: [address] [place] [address] Performed By: #### 1 989-3 #### [facility] [place] [id number] [address] [place] [address] [place] Albumin/Creatinine (U) [Mass ratio] <16 Normal <30 [facility] Comment on above: Order Comment: Edilbertoi coleen Type: BLOOD SPECIMEN Ordering Facility: [facility] Address: [address] [place] [address] Result Comment: Adul t Male and Female Nephrotic Criteria: <30 mg/g is considered normal to mildly increased 30-300 mg/g is considered moderately increased >300 mg/g is considered severely increased KDIGO. (2013). KDIGO 2012 Clinical Practice Guideline for the Evaluation and Management of Chronic Kidney Disease. Official Journal of the International Society of Nephrology, 3(1), 5-150. Performed By: #### 1 989-3 #### [facility] CLIA [id number] [address] [place] Creatinine (U) [Mass/Vol] 74.2 mg/dL Normal 20.0-300.0 [facility] Comment on above: Order Comment: Speci men Type: BLOOD SPECIMEN Ordering Facility: [facility] Address: [address] [place] [address] Performed By: #### 1 989-3 #### [facility] CLIA [id number] [address] [place] HISTORY PHYSICALon HISTORY PHYSICAL HNO ID: [id number] Author: Latanya Beltran APRN.[employer] HAND Service: ? Author Type: Nurse Practitioner Type: HANDP Filed: 12/23/2022 1:03 PM Note Text: Surgeon: Eleanor Kenny DO Type of surgery: ENDOMETRIAL BX W/ ENDOCERVICAL SAMPLING W/O CERVICAL DILATION Patient scheduled for surgery on 12/30/2022 Surgery Location: [place] Assessment/Plan TALIA (obstructive sleep apnea) Assessment: Patient reports ill fitting mask, attempting to increase compliance Esophageal reflux Assessment: S/P gastric bypass and Nessa, Well controlled with PPI Type 2 diabetes mellitus without complication, without long-term current use of insulin (HCC) Assessment: Stable on injectable medication Hemoglobin A1C (%) Date Value 06/16/2022 6.2 01/21/2022 6.3 03/17/2021 6.0 12/27/2020 6.2 08/13/2020 6.1 05/13/2020 6.4 10/03/2019 6.2 Hemoglobin A1C (POCT) (%) Date Value 11/30/2022 6.6 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 Class 2 severe obesity due to excess calories with serious comorbidity and body mass index (BMI) of 38.0 to 38.9 in adult Assessment: S/P gastric bypass Body mass index is 38.39 kg/m?. ANESTHESIA FINDINGS: Intubation History: No history of difficult intubation Significant Anesthesia Considerations: patient has woke up during EGD and COLONOSCOPY. takes increased amount of medications to be put to sleep Airway Exam: General: Morbid obesity Body mass index is 40.14 kg/m?. Mallampati Score is CLASS II ULBT: Class II - Lower incisors can bite the upper lip below the liz line Neck: Normal appearance and function, Distance from hyoid to mentum during neck extension is at least 3 finger breaths, short/thick neck Mouth: Large tongue size and Mouth opening greater than 2 finger breaths Dentition: Partial upper Airway History: No history of difficult intubation most recent airway history - 11/2016, gastric sleeve surgery CC: Patient presents with: Pre-Op Visit HPI: Esme Morfin is a 47 year old year old FEMALE with recent CPE completed on 11/30/2022 located in [facility] by Bipin Nina Encounter reviewed with patient. Patient denies changes. 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 Mitral and aortic valve regurgitation 09/08/2009 Aortic insufficiency EF 60% DR Zuniga -- judged to be non-surgical and mild Nephrolithiasis TALIA (obstructive sleep apnea) 2015 on CPAP and BiPAP Postoperative malabsorption 03/04/2017 Rheumatoid arthritis (HCC) was treated with mtx plaquenil in past Thyroiditis, unspecified Thyroiditis Viral pneumonia, unspecified Pneumonia Vomiting of fecal matter PAST SURGICAL HISTORY Procedure Laterality Date ANES HRNA REPAIR UPR ABD TABDL RPR DIPHRG HRNA open 2001 COLONOSCOPY FLX DX W/COLLJ SPEC WHEN PFRMD Colonoscopy COLPO OF CERVIX WBIOPSYECC 04/04/2018 ESOPHAGOGASTRODUODENOSCOPY TRANSORAL DIAGNOSTIC EGD multiple GASTRIC BYPASS HX 2017 LAPAROSCOPY SURG CHOLECYSTECTOMY Cholecystectomy, lap LIG/TRNSXJ FLP TUBE ABDL/VAG APPR UNI/BI 1996 PAST SURGICAL HISTORY OF cardiac cath REPAIR PARAESOPHAGEAL HERNIA THYROIDECTOMY TOTAL/COMPLETE 02-04-2010 ? patial/incomplete FAMILY HISTORY Problem Relation Age of Onset Thyroid Mother graves' s/p I 131 Glaucoma Mother Heart Father Thyroid Sister goiter. None Sister Garcia's palsy. Diabetes Maternal Grandmother Diabetes Maternal Grandfather Social History Tobacco Use Smoking status: Never Smokeless tobacco: Never Vaping Use Vaping Use: Never used Substance Use Topics Alcohol use: Yes Comment: Social Drug use: No tretinoin (RETIN-A) 0.025 % topical cream Apply to affected area daily at bedtime. Syringe with Needle, Safety (EASY TOUCH SHEATHLOCK SYRG-NDL) 3 mL 25 gauge x 1 syrg Weekly methotrexate injections, monthly vit b12 injections as instructed cyanocobalamin 1,000 mcg/mL inject 1 milliliter intramuscularly ONCE A MONTH as instructed diclofenac (VOLTAREN ARTHRITIS PAIN) 1 % topical gel Apply 4 g to affected area four times daily. dulaglutide (TRULICITY) 0.75 mg/0.5 mL pen injector Inject 0.75 mg subcutaneously one time a week. CPAP/BIPAP/OTHER Type .CPAPSettings into a note to see current settings/supplies/DME information. ergocalciferol 50,000 unit capsule (VITAMIN D2, DRISDOL) Take 1 capsule by mouth two times a week. zaleplon (SONATA) (more content not included)... Normal [facility] Lipid 1996 panelon 3 Cholesterol [Mass/Vol] 183 mg/dL Normal <[address] [facility] Comment on above: Order Comment: Panfilo horne Type: BLOOD SPECIMEN Ordering Facility: External Submitter Address: , , Result Comment: <200 mg/dL, Desirable 200-239 mg/dL, Borderline high >239 mg/dL, High Performed By: #### 5 5454-3 #### [facility] CLIA [id number] [address] [place] [address] [place] Cholesterol in HDL [Mass/Vol] 57 mg/dL Normal >39 [facility] Comment on above: Order Comment: Panfilo horne Type: BLOOD SPECIMEN Ordering Facility: External Submitter Address: , , Result Comment: 40-5 9 mg/dL, Acceptable >59 mg/dL, High: Negative risk factor for coronary heart disease <40 mg/dL, Low: Positive risk factor for coronary heart disease Performed By: #### 5 5454-3 #### [facility] CLIA [id number] [address] [place] [address] [place] Cholesterol in LDL [Mass/Vol] 111 mg/dL High <100 [facility] Comment on above: Order Comment: Edilbertoi men Type: BLOOD SPECIMEN Ordering Facility: External Submitter Address: , , Result Comment: <100 mg/dL, Optimal 100-129 mg/dL, Near optimal/above optimal 130-159 mg/dL, Borderline high 160-189 mg/dL, High >189 mg/dL, Very high Secondary prevention optimal LDL Cholesterol levels are recommended to be < 70 mg/dL Performed By: #### 5 5454-3 #### [facility] CLIA [id number] [address] [place] [address] [place] Cholesterol in LDL/Cholesterol in HDL [Mass ratio] 1.95 {ratio} Normal <2.54 [facility] Comment on above: Order Comment: Panfilo horne Type: BLOOD SPECIMEN Ordering Facility: External Submitter Address: , , Result Comment: Batsheva saenz: 1. National Cholesterol Education Program ATP III Guideline At-A-Glance Quick Desk Reference: National Heart, Lung, and Blood [place]. National Institutes of Health. 2001: NIH Publication No. 01-3305. 2. An International Atherosclerosis Society position paper: global recommendations for the management of dyslipidemia: executive summary, Atherosclerosis. 2014: 232(2):410-413. Performed By: #### 5 5454-3 #### [facility] CLIA [id number] [address] [place] [address] [place] Cholesterol in VLDL [Mass/Vol] 15 mg/dL Normal <30 [facility] Comment on above: Order Comment: Panfilo horne Type: BLOOD SPECIMEN Ordering Facility: External Submitter Address: , , Performed By: #### 5 5454-3 #### [facility] CLIA [id number] [address] [place] [id number] [place] Cholesterol non HDL [Mass/Vol] 126 mg/dL Normal <130 [facility] Comment on above: Order Comment: Panfilo horne Type: BLOOD SPECIMEN Ordering Facility: External Submitter Address: , , Result Comment: <130 mg/dL, Optimal 130-159 mg/dL, Near optimal/above optimal 160-189 mg/dL, Borderline high 190-219 mg/dL, High >219 mg/dL, Very high Secondary prevention optimal non HDL Cholesterol levels are recommended to be <100 mg/dL Performed By: #### 5 5454-3 #### [facility] CLIA [id number] [address] [place] [address] [place] Cholesterol.total/Chol esterol in HDL [Mass ratio] 3.21 {ratio} Normal <5.10 [facility] Comment on above: Order Comment: Panfilo horne Type: BLOOD SPECIMEN Ordering Facility: External Submitter Address: , , Performed By: #### 5 5454-3 #### [facility] CLIA [id number] [address] [place] [address] [place] FASTING TIME 12 hrs Normal [facility] Comment on above: Order Comment: Panfilo horne Type: BLOOD SPECIMEN Ordering Facility: External Submitter Address: , , Performed By: #### 5 5454-3 #### [facility] CLIA [id number] [address] [place] [address] [place] Triglyceride [Mass/Vol] 76 mg/dL Normal <150 [facility] Comment on above: Order Comment: Panfilo coleen Type: BLOOD SPECIMEN Ordering Facility: External Submitter Address: , , Result Comment: <150 mg/dL, Normal 150-199 mg/dL, Borderline high 200-499 mg/dL, High >499 mg/dL, Very high Performed By: #### 5 5454-3 #### [facility] CLIA [id number] [facility] [place] [address] [place] TSH SerPl-aCncon 12-22-2022 TSH Qn 3.800 m[IU]/L Normal 0.270-4.200 [facility] Comment on above: Order Comment: Speci men Type: BLOOD SPECIMEN Ordering Facility: External Submitter Address: , , Result Comment: If t he patient is , TSH reference range varies by gestational period: First Trimester (weeks 9-12): 0.180-2.990 mIU/L Second Trimester: 0.110-3.980 mIU/L Third Trimester: 0.480-4.710 mIU/L Rohit Mares et al. A Practical Approach for the Verifications and Determination of Site- and Trimester-Specific Reference Intervals for Thyroid Function tests in . Thyroid, 2019:29:3:412-420. Hany Torre, et al. 2017 Guidelines of the [place] Thyroid Association for the Diagnosis and Management of Thyroid Disease during and the . Thyroid, 2017:27:3:315-389. Performed By: #### 5 5454-3 #### [facility] CLIA [id number] [address] [place] [address] OF [facility] CNPAndressa 12-21-2022 CNPN Telephone ([place]) -- ESME MORFIN ([id number]) 1975 F Date Time Provider Department 12/21/22 PACC SHELLY HUFF During your visit today, we recorded the following information about you: Oma Montero LPN 12/21/2022 1:25 PM Signed Patient did not check in for 1 pm PACC appt. She was not in the waiting room. I called her at 1:20 pm and she was unsure if appt was in person or virtual. Please call her to reschedule. Surgery is 12/30/22. Oma Montero LPN December 21, 2022 1:24 PM Allergies As of Date: 12/21/2022 Noted Allergy Reaction Contrast Dye (IODINE) 11/04/2020 14 - Other: See Comments MOBIC (MELOXICAM) 08/05/2016 5 - Intolerance Comments: GI bleed with transfusion MOTRIN (IBUPROFEN) 11/06/2015 14 - Other: See Comments Comments: GI Bleed NSAIDS (NON-STEROIDAL ANTI-INFLAM*03/05/2016 16 - Unknown PREDNISONE 08/05/2016 15 - Contraindication-Medical Parnell* Comments: GI bleed SCOPOLAMINE 12/01/2016 1 - Mental Status Change Comments: Paranoia, confusion, hallucination Date Reviewed: 11/30/2022 Reviewed by: Bipin Nina APRN.DRILL PRESS HAND - Fully Assessed Reason for Visit: Missed Appointment [1304] Prescriptions as of 12/21/2022 - tretinoin (RETIN-A) 0.025 % topical cream Apply to affected area daily at bedtime. - Syringe with Needle, Safety (EASY TOUCH SHEATHLOCK SYRG-NDL) 3 mL 25 gauge x 1 syrg Weekly methotrexate injections, monthly vit b12 injections as instructed - cyanocobalamin 1,000 mcg/mL inject 1 milliliter intramuscularly ONCE A MONTH as instructed - diclofenac (VOLTAREN ARTHRITIS PAIN) 1 % topical gel Apply 4 g to affected area four times daily. - dulaglutide (TRULICITY) 0.75 mg/0.5 mL pen injector Inject 0.75 mg subcutaneously one time a week. - CPAP/BIPAP/OTHER Type .CPAPSettings into a note to see current settings/supplies/DME information. - dulaglutide (TRULICITY) 1.5 mg/0.5 mL pen injector Inject 1.5 mg subcutaneously one time a week. - levothyroxine (SYNTHROID) 50 mcg tablet Take 1 tablet by mouth once daily. - ergocalciferol 50,000 unit capsule (VITAMIN D2, DRISDOL) Take 1 capsule by mouth two times a week. - zaleplon (SONATA) 10 mg capsule Take 10 mg by mouth daily at bedtime. Pt takes 10mg qhs - acarbose (PRECOSE) 50 mg tablet Take 1 tablet by mouth three times daily. - glucagon (BAQSIMI) 3 mg/actuation nasal spray Use 1 [place] in the nose as needed for low blood sugar. May repeat after 15 minutes using a new device if there is no response. - Blood-Glucose Sensor (FREESTYLE NBA 3 SENSOR) vinny Use to check glucose 4 times or more daily. Change sensor every 14 days. - blood sugar diagnostic (TRUE METRIX GLUCOSE TEST STRIP) test strip Use as instructed to check glucose 4 x daily or more as needed. - CPAP/BIPAP/OTHER Type .CPAPSettings into a note to see current settings/supplies/DME information. - ALPRAZolam (XANAX) 0.25 mg tablet Take 0.5 tablets by mouth as needed. - meclizine (ANTIVERT) 25 mg tab Take 0.5-1 tablets by mouth three times daily as needed (for dizziness.). - BIPAP Lifetime supplies for BiPAP 12/8 cm H20 including mask, heated tubing, humidity, filters. Dx: G47.33 - promethazine (PHENERGAN) 25 mg tablet Take 25 mg by mouth four times daily as needed. - pantoprazole DR (PROTONIX) 40 mg tablet Take 1 tablet by mouth as needed. 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 TALIA (obstructive sleep apnea) [G47.33] GI bleeding [K92.2] 06/08/2010 Secondary osteoarthritis of multiple sites [M15*08/05/2016 Vitamin B12 deficiency (dietary) anemia [D51.8] 08/09/2016 Rheumatoid arthritis of multiple sites without *08/09/2016 Positive anti-CCP test [R76.8] 08/09/2016 Nausea and vomiting in adult [R11.2] 08/20/2016 Morbid obesity due to excess calories (HCC) [E6*08/31/2016 12/01/2016 Hernia, paraesophageal [K44.9] 08/31/2016 12/01/2016 Morbid obesity (HCC) [E66.01] 11/24/2016 10/23/2022 Pneumonia [J18.9] 12/06/2016 Postoperative malabsorption [K91.2] 03/04/2017 Diarrhea, unspecified [R19.7] 09/24/2017 Vomiting of fecal matter with nausea [R11.13] 09/24/2017 Type 2 diabetes mellitus without retinopathy (H* Fibromyalgia [M79.7] 09/08/2009 Mitral and aortic valve regurgitation [I08.0] 09/08/2009 10/23/2022 Esophageal reflux [K21.9] Anemia [D64.9] Obesity, Class I, BMI 30-34.9 [E66.9] 01/10/2018 10/23/2022 Iron deficiency anemia [D50.9] 07/29/2018 Gl (more content not included)... Normal [facility] CNOVon 11-30-2022 CNOV Office Visit (ENDONR ) -- ESME MORFIN ([id number]) 1975 F Date Time Provider Department 11/30/22 11:00 AM BIPIN NINA ENDONR During your visit today, we recorded the following information about you: Pulse Blood pressure Weight Height 82/minute 134/88 99.3 kg 1.575 m Bipin Nina APRN.DRILL PRESS HAND 11/30/2022 12:18 PM Signed Endocrinology Follow-up Subjective History of Present Illness Esme Morfin is a 47 year old female who presents today for follow up of Type 2 diabetes mellitus. Diagnosed with Type 2 diabetes mellitus around 2014. 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 Last seen by endocrinology 09/12/2022 (Dr. Leavitt). Resumed trulicity at last OV Having large and rapid rises in glucose again - started acarbose and is helping Stopped using CGM because it was waking her up a lot at night Recent A1c Results: Hemoglobin A1C (%) Date Value 06/16/2022 6.2 01/21/2022 6.3 03/17/2021 6.0 12/27/2020 6.2 08/13/2020 6.1 Hemoglobin A1C (POCT) (%) Date Value 11/30/2022 6.6 DM Complications: none Current DM Regimen: Trulicity 1.5 mg weekly (not currently taking) Acarbose 25-50 mg before meals (up to 3x day - usually just once) Glucose Monitoring: - Frequency of Monitoring: prn at various times, when having symptoms - Reports hypoglycemia. - Hypoglycemia awareness: Yes - Able to self treat: Yes - BG Values: reported. Breakfast: 100-150's As high in 300's after eating and depending on what she eats a low Diet: Doing ok with diet Minimal appetite Meals per day: 1 Snacks per day: 1 Physical Activity: Not physically active or exercising Struggling with depression and working with therapist Prior DM Medications: Ozempic - cost / [place] coverage Health Maintenance: Diabetic Foot and Retinal Eye Exam not Overdue Medications, Past History, Allergies Current Medications 11/30/2022 DIABETES THERAPIES Medication Dosage Pharm Subclass acarbose (PRECOSE) 50 mg tablet Take 1 tablet by mouth three times daily. Antihyperglycemic - Alpha-Glucosidase Inhibitors dulaglutide (TRULICITY) 1.5 mg/0.5 mL pen injector Inject 1.5 mg subcutaneously one time a week. Antihyperglycemic - Glucagon-Like Peptide-1 (GLP-1) Receptor Agonists OTHER Medication Dosage Pharm Subclass ALPRAZolam (XANAX) 0.25 mg tablet Take 0.5 tablets by mouth as needed. Antianxiety Agent - Benzodiazepines BIPAP Lifetime supplies for BiPAP 12/8 cm H20 including mask, heated tubing, humidity, filters. Dx: G47.33 Medical Supply, [employer]DB Superset blood sugar diagnostic (TRUE METRIX GLUCOSE TEST STRIP) test strip Use as instructed to check glucose 4 x daily or more as needed. Medical Supplies and DME - Blood Glucose Tests Blood-Glucose Sensor (FREESTYLE NBA 3 SENSOR) vinny Use to check glucose 4 times or more daily. Change sensor every 14 days. Medical Supplies and DME - Glucose Monitoring Test Supplies CPAP/BIPAP/OTHER Type .CPAPSettings into a note to see current settings/supplies/DME information. Medical Supply, [employer] Superset CPAP/BIPAP/OTHER Type .CPAPSettings into a note to see current settings/supplies/DME information. Medical Supply, [employer] Superset cyanocobalamin 1,000 mcg/mL inject 1 milliliter intramuscularly ONCE A MONTH as instructed Vitamins - B-12, Cyanocobalamin and derivatives diclofenac (VOLTAREN ARTHRITIS PAIN) 1 % topical gel Apply 4 g to affected area four times daily. Dermatological - NSAID Single Agents ergocalciferol 50,000 unit capsule (VITAMIN D2, DRISDOL) Take 1 capsule by mouth two times a week. Vitamins - D Derivatives glucagon (BAQSIMI) 3 mg/actuation nasal spray Use 1 [place] in the nose as needed for low blood sugar. May repeat after 15 minutes using a new device if there is no response. Agents to treat Hypoglycemia (Hyperglycemics) levothyroxine (SYNTHROID) 50 mcg tablet Take 1 tablet by mouth once daily. Thyroid Hormones - Synthetic T4 (Thyroxine) meclizine (ANTIVERT) 25 mg tab Take 0.5-1 tablets by mouth three times daily as needed (for dizziness.). Antiemetic - Antihistamines pantoprazole DR (PROTONIX) 40 mg tablet Take 1 tablet by mouth as needed. Gastric Acid Secretion Waistline Joiner Overlock - Proton Pump Inhibitors (PPIs) promethazine (PHENERGAN) 25 mg tablet Take 25 mg by mouth four times daily as needed. Antihistamine - 1st Generation - Phenothiazines Syringe with Needle, Safety (EASY TOUCH SHEATHLOCK SYRG-NDL) 3 mL 25 gauge x 1 syrg Weekly methotrexate injections, monthly vit b12 injections as instructed Medical Supplies and DME - [place] and Syringes tretinoin (RETIN-A) 0.025 % topical cream Apply to affected area daily at bedtime. Acne Therapy Topical - Retinoids and Derivatives zalep (more content not included)... Normal [facility] GLUCOSE, BLOOD (POC)on 11-30 Glucose [Mass/Vol] 133 mg/dL Abnormal 74 - 99 mg/dL [facility] HEMOGLOBIN A1C (POC)on 11-30 HbA1c (Bld) [Mass fraction] 6.6 % Abnormal 4.2 - 5.6 % [facility] CNOVon 11-26-2022 CNOV Office Visit ([facility] ) -- ESME MORFIN ([id number]) 1975 F Date Time Provider Department 11/26/22 4:30 PM THADDEUS DIGGS During your visit today, we recorded the following information about you: Temperature Pulse Blood pressure Weight 98.5 degrees 93/minute 106/75 98.9 kg Height 1.594 m Thaddeus Diggs MD 11/27/2022 7:26 AM Signed Impression: This is Ms. Esme Morfin, a 47 year old female who presents to the [facility] clinic for follow up. Recently seen in the setting of cognitive complaints (short-term memory loss, issues getting words to come out the right way). Also concerned about possible changes on MRI. Ultimately does well on neurological exam. I am much less concerned for a progressive neurological condition in this case. Multiple risk factors in this case Reviewing the chart Depression, fibromyalgia, anxiety, sleep apnea B12 deficiency history History of gastric bypass Medication regimen Likely multifactorial issue. Likely a result of polypharmacy as well as untreated sleep apnea due to need for updated CPAP equipment. Also with history of vitamin deficiency that we are investigating further. Plan: - Vitamin B1, B6 pending. - Continue to follow-up with sleep medicine. New CPAP equipment in coming. - Follow-up with endocrinology. Not currently taking Synthroid. - Sedrick maneuver discussed today. Thaddeus Diggs MD Staff, [facility] [place] HPI: This is Ms. Esme Morfin, a 47 year old female who presents to the [facility] clinic for follow up. Recently seen in the setting of cognitive complaints (short-term memory loss, issues getting words to come out the right way). Also concerned about possible changes on MRI. Review: Initially seen 11/13/2022. This is Ms. Esme Morfin, a 47 year old female who presents to the [facility] clinic with cognitive complaints (short-term memory loss, issues getting words to come out the right way). Also concerned about possible changes on MRI. Risk factors in this case for cognitive complaints Depression, fibromyalgia, anxiety, sleep apnea, thyroiditis B12 deficiency anemia History of gastric bypass Medication regimen Many issues to consider as regards cognitive complaints. This is likely multifactorial issue. Likely result of polypharmacy as well as untreated sleep apnea due to need for updated CPAP equipment. Also with history of vitamin deficiency that needs to be investigated further. Also with very stressful life situation at the moment. Plan: -Laboratory studies. B12, B1, B6, folate, vitamin D, ferritin. - Follow-up with sleep medicine. Message sent to my colleague in sleep disorders. - Follow-up with endocrinology. Not currently taking Synthroid. - Follow-up in clinic with me 11/26/2022. >>>>>> CC: Today: Appointment 11/30 Endo Appointment 11/24 Sleep Updated order for mask/supplies B12 327 B1, B6 pending Ferritin normal D normal Past history per chart review includes: (Per my 11/13/2022 clinic note) Past medical history, problem list: Depression, fibromyalgia, anxiety, rheumatoid arthritis, thyroiditis, sleep apnea, diabetes, B12 deficiency anemia, dysmetabolic syndrome Past surgical history: ? Partial/incomplete thyroidectomy, history of gastric bypass Family history: Thyroid (mother, sister) Social history: Non-smoker, social alcohol OBJECTIVE: PHYSICAL EXAM: Neurological: Mental Status: Alert. Cogent. Cranial Nerves: CNII: Visual rojas intact. CNIII, IV, : Pupils are reactive to light. Eyes cross midline. Upgaze does not seem limited. CN V: Facial sensation intact bilaterally to touch. CN VII: Smile is symmetric. CN VIII: Hearing intact to finger rub bilaterally. CN IX: No hypophonia. CN XI: Full strength shoulder shrug bilaterally. CN XII: Tongue protrusion full, midline. Motor: Bulk is normal in the upper and lower extremities. Normal calf asymmetry L vs R? Tone is normal in the upper and lower extremities. Individual muscle group testing: Right Left Shoulder abduction 5 5 Elbow flexion Approx 5 5 Elbow extension Approx 5 5 Wrist extension 5 Approx 5 Wrist flexion Finger extension 5 5 Distal finger flexion Thumb abduction 5 Approx 5? Machining Manager 5 Approx 5 Hip flexion Difficult 5? Knee extension 5 Approx 5? Knee flexion [address] Approx 5 Dorsiflexion 5 5 Ankle inversion Plantarflexion Toe walks. Reflexes: R L Biceps 1 1 Triceps 2 2 Patellar 2 2 Ankle 2 2 Sensation: Intact to sharp in the distal upper and lower extremities. Intact to vibration in the distal upper and lower extremities. Rhomberg positive? Coordination: Intact tyynhq-xn-sjdg-finger bilaterally. Does fairly well cxyv-df-eiiz bilaterally. Strugg (more content not included)... Normal [facility] 25(OH)D3 [facility] 2022 25-hydroxyvitamin D3 [Mass/Vol] 32.5 ng/mL Normal 31.0-80.0 [facility] Comment on above: Order Comment: Speci men Type: BLOOD SPECIMEN Ordering Facility: [facility] Address: [address] [place] [address] Result Comment: Clas sification of 25 [place] Vitamin D status: Deficiency/Insufficiency: < or = 30 ng/ml. Sufficiency/Optimal Levels: 31-80 ng/mL Toxicity: > 100 ng/mL. Test performed by chemiluminescent immunoassay. Performed By: #### 1 989-3 #### [facility] CLIA [id number] [address] [place] [address] [place] Zoey 11-24-2022 [place] Telephone ([facility]) -- ESME MORFIN ([id number]) 1975 F Date Time Provider Department 11/24/22 CATA CERDA [facility] During your visit today, we recorded the following information about you: Cata Cerda RN 11/24/2022 12:13 PM Signed I called 's insurance [facility] at [phone] and spoke to Violeta to discuss pt eligibility for new replacement mask. He stated that she has not gotten a mask under this insurance for the full face mask code(A 7030). Will submit an order to dme. Will update pt. Cata Cerda RN 11/24/2022 1:38 PM Signed Faxed mask/supplies order and last office visit notes to: DME name: [facility]([place]/[facility]/Benny yasmin) - /[phone] Fax confirmation received electronically. Patient notified via [employer] message Cata SMITH RN Neuro/Sleep Call Center Director Allergies As of Date: 11/24/2022 Noted Allergy Reaction Contrast Dye (IODINE) 11/04/2020 14 - Other: See Comments MOBIC (MELOXICAM) 08/05/2016 5 - Intolerance Comments: GI bleed with transfusion MOTRIN (IBUPROFEN) 11/06/2015 14 - Other: See Comments Comments: GI Bleed NSAIDS (NON-STEROIDAL ANTI-INFLAM*03/05/2016 16 - Unknown PREDNISONE 08/05/2016 15 - Contraindication-Medical Parnell* Comments: GI bleed SCOPOLAMINE 12/01/2016 1 - Mental Status Change Comments: Paranoia, confusion, hallucination Date Reviewed: 11/13/2022 Reviewed by: Dionna Wagner MA - Fully Assessed Reason for Visit: Call Center Director - Other [3602] PAP Therapy Follow Up [1285] Cmt: Orders faxed Primary Visit Diagnosis:TALIA (obstructive sleep apnea) [G47.33] Order(s):PAP THERAPY ORDER [[id number]] Order #: [id number]: 1 CPAP/BIPAP/OTHERType .CPAPSettings into a note to see current settings/supplies/DME information.Disp: 1 EachRfl: 0 Prescriptions as of 11/24/2022 - CPAP/BIPAP/OTHER Type .CPAPSettings into a note to see current settings/supplies/DME information. - dulaglutide (TRULICITY) 1.5 mg/0.5 mL pen injector Inject 1.5 mg subcutaneously one time a week. - levothyroxine (SYNTHROID) 50 mcg tablet Take 1 tablet by mouth once daily. - ergocalciferol 50,000 unit capsule (VITAMIN D2, DRISDOL) Take 1 capsule by mouth two times a week. - zaleplon (SONATA) 10 mg capsule Take 10 mg by mouth daily at bedtime. Pt takes 10mg qhs - acarbose (PRECOSE) 50 mg tablet Take 1 tablet by mouth three times daily. - glucagon (BAQSIMI) 3 mg/actuation nasal spray Use 1 [place] in the nose as needed for low blood sugar. May repeat after 15 minutes using a new device if there is no response. - Blood-Glucose Sensor (FREESTYLE NBA 3 SENSOR) vinny Use to check glucose 4 times or more daily. Change sensor every 14 days. - blood sugar diagnostic (TRUE METRIX GLUCOSE TEST STRIP) test strip Use as instructed to check glucose 4 x daily or more as needed. - tretinoin (RETIN-A) 0.025 % topical cream Apply to affected area daily at bedtime. - diclofenac (VOLTAREN ARTHRITIS PAIN) 1 % topical gel Apply 4 g to affected area four times daily. - CPAP/BIPAP/OTHER Type .CPAPSettings into a note to see current settings/supplies/DME information. - ALPRAZolam (XANAX) 0.25 mg tablet Take 0.5 tablets by mouth as needed. - meclizine (ANTIVERT) 25 mg tab Take 0.5-1 tablets by mouth three times daily as needed (for dizziness.). - BIPAP Lifetime supplies for BiPAP 12/8 cm H20 including mask, heated tubing, humidity, filters. Dx: G47.33 - promethazine (PHENERGAN) 25 mg tablet Take 25 mg by mouth four times daily as needed. - cyanocobalamin 1,000 mcg/mL inject 1 milliliter intramuscularly ONCE A MONTH as instructed - pantoprazole DR (PROTONIX) 40 mg tablet Take 1 tablet by mouth as needed. - Syringe with Needle, Safety (EASY TOUCH SHEATHLOCK SYRG-NDL) 3 mL 25 gauge x 1 syrg Weekly methotrexate injections, monthly vit b12 injections as instructed Meds Comments as of 08/15/2020: Would like refill of promethazine as of 08/15/2020 Problem List As Of Date 11/24/2022 Noted Resolved CHR LYMPHOCYT THYROIDIT [E06.3] 06/17/2006 DYSMETABOLIC SYNDROME X [E88.810] 06/17/2006 Hx of DIABETES IN PREG-UNSPEC [GJX0139] 06/17/2006 MALAISE AND FATIGUE NEC [R53.81, R53.83] 06/17/2006 Obesity, unspecified [E66.9] 06/17/2006 10/23/2022 FLUSHING [R23.2] 04/20/2007 Type 2 diabetes mellitus without complication, *04/17/2008 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 Normal [facility] Ferritin SerPl-ncon 2022 Ferritin [Mass/Vol] 20.7 ng/mL Normal 14.7-205.1 [facility] Comment on above: Order Comment: Panfilo horne Type: BLOOD SPECIMEN Ordering Facility: [facility] Address: [address] [place] [address] Performed By: #### 1 989-3 #### [facility] CLIA [id number] [address] [place] [address] [place] VITAMIN B1 (THIAMINE), WHOLE BLOODon 11-24-2022 Thiamine (Bld) [Moles/Vol] 117.7 nmol/L Normal 84.3-213.3 [facility] Comment on above: Order Comment: Panfilo horne Type: BLOOD SPECIMEN Ordering Facility: External Submitter Address: , , Result Comment: This assay measures the concentration of thiamine diphosphate (TDP), the primary active form of vitamin B1. Approximately 90 percent of vitamin B1 present in whole blood is TDP. Thiamine and thiamine monophosphate, which comprise the remaining 10 percent, are not measured. This test was developed and its performance characteristics determined by [facility]'s Lacy Ibrahim [facility] Pathology and Laboratory Medicine [place] ([facility]). It has not been cleared or approved by the FDA. [facility] is regulated under CLIA as qualified to perform high-complexity testing. This test is used for clinical purposes. It should not be regarded as investigational or for research. Performed By: #### 3 016-3, 38820-0 #### [facility] CLIA [id number] [address] [place] [address] [place] VITAMIN B6/PYRIDOXINon 11-24 VITAMIN B6 14.4 nmol/L Low 20.0-125.0 [facility] Comment on above: Order Comment: Speci men Type: BLOOD SPECIMENOrdering Facility: [facility] Address: [address] [place] [address] Result Comment: INTE RPRETIVE INFORMATION: Vitamin B6 (Pyridoxal 5-Phosphate) Pyridoxal 5'-phosphate measured in a specimen collected following an 8-hour or overnight fast accurately indicates vitamin B6 nutritional status. Non-fasting specimen concentration reflects recent vitamin intake. This test was developed and its performance characteristics determined by [facility]. It has not been cleared or approved by the US Food and Drug Administration. This test was performed in a CLIA certified laboratory and is intended for clinical purposes. Performed By: [facility] [address] [place] [address] Gas Plant Specialist: Nirmal Rodriguez MD, PhD CLIA Number: [id number] Performed By: #### V ITB6 ####[facility] [id number] [place] [address] Vit B12 SerPl-ncon 023 Cobalamin (Vitamin B12) [Mass/Vol] 327 pg/mL Normal 232-1245 [facility] Comment on above: Order Comment: Speci men Type: BLOOD SPECIMEN Ordering Facility: [facility] Address: [address] [place] [address] Performed By: #### 1 989-3 #### [facility] CLIA [id number] [address] [place] [address] [place] [facility] [facility] CNOVon 11-13-2022 CNOV Office Visit (NEUFHS ) -- ESME MORFIN ([id number]) 1975 F Date Time Provider Department 11/13/22 8:00 AM THADDEUS DIGGS During your visit today, we recorded the following information about you: Temperature Pulse Blood pressure Weight 97.5 degrees 70/minute 115/81 100.7 kg Height 1.575 m Thaddeus Diggs MD 11/13/2022 9:18 AM Signed Impression: This is Ms. Esme Morfin, a 47 year old female who presents to the [facility] clinic with cognitive complaints (short-term memory loss, issues getting words to come out the right way). Also concerned about possible changes on MRI. Risk factors in this case for cognitive complaints Depression, fibromyalgia, anxiety, sleep apnea, thyroiditis B12 deficiency anemia History of gastric bypass Medication regimen Many issues to consider as regards cognitive complaints. This is likely multifactorial issue. Likely result of polypharmacy as well as untreated sleep apnea due to need for updated CPAP equipment. Also with history of vitamin deficiency that needs to be investigated further. Also with very stressful life situation at the moment. Plan: -Laboratory studies. B12, B1, B6, folate, vitamin D, ferritin. - Follow-up with sleep medicine. Message sent to my colleague in sleep disorders. - Follow-up with endocrinology. Not currently taking Synthroid. - Follow-up in clinic with me 11/26/2022. Thaddeus Diggs MD Staff, [facility] [place] HPI: This is Ms. Esme Mrofin, a 47 year old female who presents to the [facility] clinic with cognitive complaints (short-term memory loss, issues getting words to come out the right way). Also concerned about possible changes on MRI. 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 Acevedo and FRANK Serrano Communicates with them Psychiatrist now prescribing sleep med to her Compliant with CPAP Mask not working In the last month, wearing it maybe 1-2 nights These days, no alcohol + Sonata 5-10mg QHS + 3 shots of Zquil QHS + 1-2 mg Xanax QHS 3-4 hours later, takes more + Sonata 5mg + 3 shots of Zquil + 1-2 mg Xanax Sometimes takes the above 3 times a day starting at 2 PM or so I'm going to bed now Has full conversations on the above, texts, social media posts and doesn't realize it History of vitamin deficiency B12, B1, folate, iron, D all off historically Gastric bypass 2018 Doesn't really take supplements Has history of thyroiditis, thyroidectomy partial? Sees Endo Recently TSH going up Recommended to take synthroid again Didn't tolerate it Stopped it Doesn't know what to do Endo not aware Risk factors in this case for cognitive complaints Depression, fibromyalgia, anxiety, sleep apnea, thyroiditis B12 deficiency anemia History of gastric bypass Past history per chart review includes: Past medical history, problem list: Depression, fibromyalgia, anxiety, rheumatoid arthritis, thyroiditis, sleep apnea, diabetes, B12 deficiency anemia, dysmetabolic syndrome Past surgical history: ? Partial/incomplete thyroidectomy, history of gastric bypass Family history: Thyroid (mother, sister) Social history: Non-smoker, social alcohol OBJECTIVE: PHYSICAL EXAM: Neurological: Mental Status: Alert. Speech fluent. Oriented to person, place, exact date. Expression, repetition, naming, concentration intact. Recent and remote memory intact. Follows a complex, midline crossing command after repeat Incorrect at first. Cranial Nerves: CN IX: No hypophonia. Motor: No overt resting tremor with distraction. Gait: Stands with arms crossed. Ambulates easily in the clinic rao. Normal, narrow-based gait. Good arm swing- on le (more content not included)... Normal [facility] CERVICAL LYMPH NODE MAPPI [facility] 11-12-2022 US CERVICAL LYMPH NODE MAPPING * * *Final Report* * * DATE OF EXAM: Nov 12 2022 12:27PM [facility] [id number] - CERVICAL LYMPH NODE MAPPING / PROCEDURE REASON: Hx of papillary thyroid carcinoma * * * * Physician Interpretation * * * * EXAMINATION: ULTRASOUND CERVICAL LYMPH NODE MAPPING CLINICAL HISTORY: Thyroid cancer. TECHNIQUE: Sonography of the cervical lymph node stations was performed bilaterally. Images were obtained and stored in a permanent archive. COMPARISON: 11/21/2020 RESULT: There are multiple nonenlarged morphologically normal bilateral cervical lymph nodes. No abnormal lymph nodes are visualized. The residual right lobe measures 4.5 x 1.6 x 1.3 cm and contains a solid isoechoic avascular nodule inferiorly with smooth margins and a hypoechoic halo measuring 0.6 x 0.6 x 0.5 cm. The residual left lobe measures 2.0 x 1.0 x 0.8 cm and contains a solid hypoechoic vascular nodule superiorly with ill-defined margins measuring 0.3 x 0.4 x 0.3 cm. This nodule previously measured 0.6 x 0.6 x 0.3 cm. IMPRESSION: No abnormal cervical lymph nodes. Small bilateral thyroid nodules as described. Management Aide: PSCB Transcribe Date/Time: Nov 16 2022 8:08A Dictated by : VIOLETA MACHADO MD This examination was interpreted and the report reviewed and electronically signed by: VIOLETA MACHADO MD on Nov 16 2022 8:16AM EST [id number] Normal [facility] CNCOon 10-27-2022 CNCO HNO ID: [id number] Author: Coordinator, Mammography Service: ? Author Type: Physician Type: Letter Filed: 10/29/2022 11:31 PM Note Text: October 28, 2022 PID: [id number] Esme Shelbie [address] [place] [address] Dear Ms. Morfin, We are pleased to inform you that the results of your recent breast imaging exam on 10/27/2022 are normal. Your mammogram demonstrates that you have dense breast tissue, which could hide abnormalities. Dense breast tissue, in and of itself, is a relatively common condition. Therefore, this information is not provided to cause undue concern; rather, it is to raise your awareness and promote discussion with your health care provider regarding the presence of dense breast tissue in addition to other risk factors. Early detection of cancer is very important. We also understand recommendations regarding breast cancer screening are controversial. Please discuss with your primary care provider which strategy is best for you and whether a mammogram is right for you. Your imaging studies and report will be kept on file at [facility] as part of your permanent medical record and are available for your continuing care. Thank you for allowing us to help in meeting your health care needs. Sincerely, Dr. Pagan Interpreting Radiologist [facility] (Normal over 40) Normal [facility] JUS SCREENING W TOMOon 10-27 JUS SCREENING W SURINDER * * *Final Report* * * DATE OF EXAM: Oct 27 2022 10:46AM [id number] - JUS SCREENING W SURINDER / PROCEDURE REASON: Encounter for screening mammogram for malignant neoplasm of breast * * * * Physician Interpretation * * * * RESULT: #[id number] - JUS SCREENING W SURINDER BILATERAL FIRST EVER DIGITAL SCREENING MAMMOGRAM TOMOSYNTHESIS WITH CAD: 10/27/2022 HISTORY: Encounter For Screening Mammogram For Malignant Neoplasm Of Breast / /Baseline screening mammogram-Pt reports NO problems. RESULT: TECHNIQUE: The study was acquired using full field digital technology and interpreted from soft copy. Digital Breast Tomosynthesis (DBT) images were obtained and used to assist in the interpretation of this examination. Current study was also evaluated with a Computer Aided Detection (CAD). No prior exams were available for comparison. The breasts are heterogeneously dense, which may obscure small masses. No significant masses, calcifications, or other findings are seen in either breast. IMPRESSION: NEGATIVE There is no mammographic evidence of malignancy. A 1 year screening mammogram is recommended. The exam was reviewed by a staff physician. karen Canada M.D., D.O./caron:10/27/2022 11:12:38 Log Sorting Supervisor(s): DALI Foster)(M), [facility] letter sent: Normal over 40 Mammogram BI-RADS: 1 Negative Multiple national specialty organizations have released breast cancer screening guidelines for women at average risk for developing breast cancer - guidelines that are based on both evidence and opinion, yet differ on when to start and how often to screen for breast cancer. With representation from Breast Imaging, Internal Medicine, Women's Health, Family Medicine, and Medical/Surgical Oncology, the [facility] has carefully reviewed the data and reached the following consensus: 1) All women should engage in shared decision-making with their providers to decide when to start and how often to screen; 2) All women should have the opportunity to start screening mammography at age 40; 3) For women ages 45-55, we recommend annual screening mammograms; 4) For women ages 55 and over, we support both the transition from an annual to a biennial interval if this aligns more with patient's values and preferences, or continuation with annual screening; 5) All women should discuss with their providers when to stop screening mammograms. Management Aide: Caron Transcribe Date/Time: Oct 27 2022 10:26A Dictated by: JING HALL, DO This examination was interpreted and the report reviewed and electronically signed by: ANNE PAGAN MD on Oct 27 2022 11:12AM EST [id number] Normal [facility] CNOVon 10-23-2022 CNOV Office Visit (CARDBD ) -- ESME MORFIN ([id number]) 1975 F Date Time Provider Department 10/23/22 3:00 PM DARIEL LE During your visit today, we recorded the following information about you: Pulse Blood pressure Weight Height 79/minute 128/80 99.8 kg 1.582 m Dariel Le MD 10/23/2022 5:06 PM Signed [facility] Department of Cardiology [address] [place] [address] (office) [phone] (fax) 10/23/2022 This note was written using medical terminology and is intended to be used for medical purposes by other health director of managed care Patient presents with: New Patient Evaluation HPI: Ms. Morfin is a 47 year old female with below PMH who was last seen by Dr. Sea Collins on 10/24/2020 for palpitations after recent COVID infection. She was noted to have significant anxiety and EtOH abuse. She had discontinued alcohol use at that time and was maintained on Toprol-XL 12.5 mg daily for brief PSVT noted on Zio. Stress testing was obtained for dyspnea on exertion and was unremarkable She last saw Luis F Barraza CNP in cardiology clinic on 06/16/2022 and she was wearing Holter placed by an outside physician at the time. She is now scheduled at [place] for preop cardiovascular assessment prior to endometrial biopsy with endocervical sampling on 10/23/2022. Preop note on 10/13/2022 states she is optimally prepared for surgery and telephone encounters document that both cardiology and endocrinology felt she was at appropriate risk to proceed with her procedure as planned, but she is schedule before she loses her insurance on 11/07/22. Per HANDP 10/06/22: Today she denies any chest pain or shortness of breath. She is struggling with nocturnal hypoglycemia which worsens palpitations at night. She is no longer taking Toprol therapy she has chronic postural dizziness when turning her head in a certain position. She mentions that she has been difficult intubation/anesthesia in the past and therefore her procedure location has changed. She lost her job within the last year and now will lose her insurance. This has caused some depression and weight gain of 30 pounds. She has little will to do much but sleep. Cardiology: The review of symptoms was negative for see HPI for details, no JEFFERSON. General ROS: Otherwise 14 systems ROS is negative except as stated above. 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 90 tablet 3 ergocalciferol 50,000 unit capsule (VITAMIN D2, DRISDOL) Take 1 capsule by mouth two times a week. 24 capsule 3 zaleplon (SONATA) 10 mg capsule Take 10 mg by mouth daily at bedtime. Pt takes 10mg qhs dulaglutide (TRULICITY) 0.75 mg/0.5 mL pen injector Inject 0.75 mg subcutaneously one time a week. 2 mL 2 acarbose (PRECOSE) 50 mg tablet Take 1 tablet by mouth three times daily. 90 tablet 2 glucagon (BAQSIMI) 3 mg/actuation nasal spray Use 1 [place] in the nose as needed for low blood sugar. May repeat after 15 minutes using a new device if there is no response. 2 Each 2 Blood-Glucose Sensor (FREESTYLE NBA 3 SENSOR) vinny Use to check glucose 4 times or more daily. Change sensor every 14 days. 2 Each 11 blood sugar diagnostic (TRUE METRIX GLUCOSE TEST STRIP) test strip Use as instructed to check glucose 4 x daily or more as needed. 400 Each 2 tretinoin (RETIN-A) 0.025 % topical cream Apply to affected area daily at bedtime. 20 g 2 diclofenac (VOLTAREN ARTHRITIS PAIN) 1 % topical gel Apply 4 g to affected area four times daily. 100 g 1 CPAP/BIPAP/OTHER Type .CPAPSettings into a note to see current settings/supplies/DME information. 1 Each 0 ALPRAZolam (XANAX) 0.25 mg tablet Take 0.5 tablets by mouth as needed. meclizine (ANTIVERT) 25 mg tab Take 0.5-1 tablets by mouth three times daily as needed (for dizziness.). 30 tablet 1 BIPAP Lifetime supplies for BiPAP 12/8 cm H20 including mask, heated tubing, h (more content not included)... Normal [facility] -- ESME MORFIN ([id number]) 1975 F Date Time Provider Department 10/23/[address] [facility] During your visit today, we recorded the following information about you: Katalina Kennedy 10/23/2022 11:13 AM Signed Patient needs a cardiac clearance appt before she loses her insurance 11/07/22. No appts pulling prior Are you able to assist patient? Michael Marie, RN 10/23/2022 11:25 AM Signed Can schedule first available unless Dr Collins can squeeze pt in Pt has not seen Dr Collins since 10/24/20 Ana Aaron 10/23/2022 12:52 PM Signed Patient is now scheduled for card clear Ana Aaron October 23, 2022 Allergies As of Date: 10/23/2022 Noted Allergy Reaction Contrast Dye (IODINE) 11/04/2020 14 - Other: See Comments MOBIC (MELOXICAM) 08/05/2016 5 - Intolerance Comments: GI bleed with transfusion MOTRIN (IBUPROFEN) 11/06/2015 14 - Other: See Comments Comments: GI Bleed NSAIDS (NON-STEROIDAL ANTI-INFLAM*03/05/2016 16 - Unknown PREDNISONE 08/05/2016 15 - Contraindication-Medical Parnell* Comments: GI bleed SCOPOLAMINE 12/01/2016 1 - Mental Status Change Comments: Paranoia, confusion, hallucination Date Reviewed: 10/06/2022 Reviewed by: Latrice Ramos Ma - Fully Assessed Reason for Visit: Appointment [186] Prescriptions as of 10/23/2022 - levothyroxine (SYNTHROID) 50 mcg tablet Take 1 tablet by mouth once daily. - ergocalciferol 50,000 unit capsule (VITAMIN D2, DRISDOL) Take 1 capsule by mouth two times a week. - zaleplon (SONATA) 10 mg capsule Take 10 mg by mouth daily at bedtime. Pt takes 10mg qhs - dulaglutide (TRULICITY) 0.75 mg/0.5 mL pen injector Inject 0.75 mg subcutaneously one time a week. - acarbose (PRECOSE) 50 mg tablet Take 1 tablet by mouth three times daily. - glucagon (BAQSIMI) 3 mg/actuation nasal spray Use 1 [place] in the nose as needed for low blood sugar. May repeat after 15 minutes using a new device if there is no response. - Blood-Glucose Sensor (Best Before MediaSTYLE NBA 3 SENSOR) vinny Use to check glucose 4 times or more daily. Change sensor every 14 days. - blood sugar diagnostic (TRUE METRIX GLUCOSE TEST STRIP) test strip Use as instructed to check glucose 4 x daily or more as needed. - tretinoin (RETIN-A) 0.025 % topical cream Apply to affected area daily at bedtime. - diclofenac (VOLTAREN ARTHRITIS PAIN) 1 % topical gel Apply 4 g to affected area four times daily. - CPAP/BIPAP/OTHER Type .CPAPSettings into a note to see current settings/supplies/DME information. - ALPRAZolam (XANAX) 0.25 mg tablet Take 0.5 tablets by mouth as needed. - meclizine (ANTIVERT) 25 mg tab Take 0.5-1 tablets by mouth three times daily as needed (for dizziness.). - BIPAP Lifetime supplies for BiPAP 12/8 cm H20 including mask, heated tubing, humidity, filters. Dx: G47.33 - promethazine (PHENERGAN) 25 mg tablet Take 25 mg by mouth four times daily as needed. - cyanocobalamin 1,000 mcg/mL inject 1 milliliter intramuscularly ONCE A MONTH as instructed - pantoprazole DR (PROTONIX) 40 mg tablet Take 1 tablet by mouth as needed. - Syringe with Needle, Safety (EASY TOUCH SHEATHLOCK SYRG-NDL) 3 mL 25 gauge x 1 syrg Weekly methotrexate injections, monthly vit b12 injections as instructed Meds Comments as of 08/15/2020: Would like refill of promethazine as of 08/15/2020 Problem List As Of Date 10/23/2022 Noted Resolved CHR LYMPHOCYT THYROIDIT [E06.3] 06/17/2006 DYSMETABOLIC SYNDROME X [E88.81] 06/17/2006 Hx of DIABETES IN PREG-UNSPEC [NEM3869] 06/17/2006 MALAISE AND FATIGUE NEC [R53.81, R53.83] 06/17/2006 OBESITY NOS [E66.9] 06/17/2006 FLUSHING [R23.2] 04/20/2007 Type 2 diabetes mellitus without complication, *04/17/2008 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 TALIA (obstructive sleep apnea) [G47.33] GI bleeding [K92.2] 06/08/2010 Secondary osteoarthritis of multiple sites [M15*08/05/2016 Vitamin B12 deficiency (dietary) anemia [D51.8] 08/09/2016 Rheumatoid arthritis of multiple sites without *08/09/2016 Positive anti-CCP test [R76.8] 08/09/2016 Nausea and vomiting in adult [R11.2] 08/20/2016 Morbid obesity due to excess calories (HCC) [E6*08/31/2016 12/01/2016 Hernia, paraesophageal [K44.9] 08/31/2016 12/01/2016 Morbid obesity (HCC) [E66.01] 11/24/2016 Pneumonia [J18.9] 12/06/2016 Postoperative malabsorption [K91.2] 03/04/2017 Diarrhea, unspecified [R19.7] 09/24/2017 Vomiting of fecal matter with nausea [R11.13] 09/24/2017 Type 2 diabetes mellitus without retinopathy (H* Fibromyalgia [M79.7] 09/08/2009 Mitral and aortic valve regurgitation [I08.0] 09/08/2009 Esophageal reflux [K21.9] Anemia [D64.9] Obesity, Class I, BMI 30-34.9 [E66.9] 01/10/2018 Iron deficiency anemia [D50.9] 07/29/2018 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 Normal [facility] [id number] 10-23-2022 ECG01 Ventricular Rate : 7 5 BPM Atrial Rate : 75 BPM P-R Interval : 126 ms QRS Duration : 96 ms Q-T Interval : 428 ms QTC Calculation(Bazett) : 477 ms Calculated P [place] : -13 degrees Calculated R [place] : -55 degrees Calculated T [place] : -15 degrees NORMAL SINUS RHYTHM LEFT ANTERIOR FASCICULAR BLOCK NONSPECIFIC T WAVE ABNORMALITY ABNORMAL ECG No Change from 06/16/2022 Confirmed by DARIEL LE MD ([id number]), editor publications LACY NEW ([id number]) on 10/23/2022 3:56:35 PM NAME : ESME MORFIN PID : [id number] : 1975 Gender : Female Race : ORD : Procedure Date : Oct 23 2022 15:14:24 Edit Date : Oct 23 2022 15:56:38 Diagnosis: NORMAL SINUS RHYTHM LEFT ANTERIOR FASCICULAR BLOCK NONSPECIFIC T WAVE ABNORMALITY ABNORMAL ECG No Change from 06/16/2022 Confirmed by DARIEL LE MD ([id number]), editor publications LACY NEW ([id number]) on 10/23/2022 3:56:35 PM Test Reason : Location : 503 : CARD Overread By : DARIEL LE MD Edited By : LACY NEW Referred By : REY Acquired by : , Normal [facility] 25(OH)D3 [facility] 2022 25-hydroxyvitamin D3 [Mass/Vol] 24.9 ng/mL Low 31.0-80.0 [facility] Comment on above: Order Comment: Speci men Type: BLOOD SPECIMEN Ordering Facility: External Submitter Address: , , Result Comment: Clas sification of 25 [place] Vitamin D status: Deficiency/Insufficiency: < or = 30 ng/ml. Sufficiency/Optimal Levels: 31-80 ng/mL Toxicity: > 100 ng/mL. Test performed by chemiluminescent immunoassay. Performed By: #### 5 5454-3 #### [facility] CLIA [id number] [address] [id number] [place] Basic metabolic 2000 panelon 10-09-2022 Anion gap [Moles/Vol] 11 mmol/L Normal 9-18 [facility] Comment on above: Order Comment: Speci men Type: BLOOD SPECIMEN Ordering Facility: [facility] Address: [address] [place] [address] Performed By: #### 1 989-3 #### [facility] CLIA [id number] [address] [place] [address] [place] Calcium [Mass/Vol] 9.1 mg/dL Normal 8.5-10.2 [facility] Comment on above: Order Comment: Speci men Type: BLOOD SPECIMEN Ordering Facility: [facility] Address: [address] [place] [address] Performed By: #### 1 989-3 #### [facility] CLIA [id number] [address] [place] [address] [place] Chloride [Moles/Vol] 105 mmol/L Normal 97-105 [facility] Comment on above: Order Comment: Speci men Type: BLOOD SPECIMEN Ordering Facility: [facility] Address: [address] [place] [address] Performed By: #### 1 989-3 #### [facility] CLIA [id number] [address] [place] [address] [place] CO2 [Moles/Vol] 22 mmol/L Normal 22-30 [facility] Comment on above: Order Comment: Speci men Type: BLOOD SPECIMEN Ordering Facility: [facility] Address: [address] [place] [address] Performed By: #### 1 989-3 #### [facility] CLIA [id number] [address] [id number] [place] Creatinine [Mass/Vol] 0.92 mg/dL Normal 0.58-0.96 [facility] Comment on above: Order Comment: Panfilo horne Type: BLOOD SPECIMEN Ordering Facility: [facility] Address: [address] [place] [address] Performed By: #### 1 989-3 #### [facility] CLIA [id number] [address] [place] [address] [place] Creatinine and Glomerular filtration rate.predicted panel (S/P/Bld) 76 mL/min/1.73m??? Normal >=60 [facility] Comment on above: Order Comment: Panfilo horne Type: BLOOD SPECIMEN Ordering Facility: [facility] Address: [address] [place] [address] Result Comment: Floresita mated Glomerular Filtration Rate (eGFR) is calculated using the 2020 CKD-EPI creatinine equation. This equation utilizes serum creatinine, sex, and age as parameters. The creatinine assay has traceable calibration to isotope dilution-mass spectrometry. Refer to KDIGO guidelines for clinical interpretation. In patients with unstable renal function, e.g. those with acute kidney injury, the eGFR may not accurately reflect actual GFR. Performed By: #### 1 989-3 #### [facility] CLIA [id number] [address] [place] [address] [place] Glucose [Mass/Vol] 101 mg/dL High 74-99 [facility] Comment on above: Order Comment: Panfilo horne Type: BLOOD SPECIMEN Ordering Facility: [facility] Address: [address] [place] [address] Result Comment: The [place] Diabetes Association (ADA) provides guidance for cutoff values for fasting glucose and random glucose. The ADA defines fasting as no caloric intake for at least 8 hours. Fasting plasma glucose results between 100 to 125 mg/dL indicate increased risk for diabetes (prediabetes). Fasting plasma glucose results greater than or equal to 126 mg/dL meet the criteria for diagnosis of diabetes. In the absence of unequivocal hyperglycemia, results should be confirmed by repeat testing. In a patient with classic symptoms of hyperglycemia or hyperglycemic crisis, random plasma glucose results greater than or equal to 200 mg/dL meet the criteria for diagnosis of diabetes. Reference: Standards of Medical Care in Diabetes 2016, [place] Diabetes Association. Diabetes Care. 2016.39(Suppl 1). Performed By: #### 1 989-3 #### [facility] CLIA [id number] [address] [place] [address] [place] Potassium [Moles/Vol] 4.0 mmol/L Normal 3.7-5.1 [facility] Comment on above: Order Comment: Speci men Type: BLOOD SPECIMEN Ordering Facility: [facility] Address: [address] [place] [address] Performed By: #### 1 989-3 #### [facility] CLIA [id number] [address] [place] [address] [place] Sodium [Moles/Vol] 138 mmol/L Normal 136-144 [facility] Comment on above: Order Comment: Speci men Type: BLOOD SPECIMEN Ordering Facility: [facility] Address: [address] [place] [address] Performed By: #### 1 989-3 #### [facility] CLIA [id number] [address] [place] [address] [place] Urea nitrogen [Mass/Vol] 10 mg/dL Normal 7-21 [facility] Comment on above: Order Comment: Speci men Type: BLOOD SPECIMEN Ordering Facility: [facility] Address: [address] [place] [address] Performed By: #### 1 989-3 #### [facility] CLIA [id number] [address] [place] [address] [place] CBC W Auto Differential pane l (Bld)on 10-09-2022 Basophils (Bld) [#/Vol] 0.06 10*3/uL Normal <0.11 [facility] Comment on above: Order Comment: Speci men Type: BLOOD SPECIMEN Ordering Facility: [facility] Address: [address] [place] [id number] Performed By: #### 5 7021-8 #### [facility] CLIA [id number] [address] [place] Basophils/100 WBC (Bld) 1.0 % Normal [facility] Comment on above: Order Comment: Speci men Type: BLOOD SPECIMEN Ordering Facility: [facility] Address: [address] Performed By: #### 5 7021-8 #### [facility] CLIA [id number] [address] [place] [address] [place] Differential cell count method Nom (Bld) Auto Normal [facility] Comment on above: Order Comment: Speci men Type: BLOOD SPECIMEN Ordering Facility: [facility] Address: [address] Performed By: #### 5 7021-8 #### [facility] CLIA [id number] [address] [place] [address] [place] Eosinophils (Bld) [#/Vol] 0.19 10*3/uL Normal <0.46 [facility] Comment on above: Order Comment: Speci men Type: BLOOD SPECIMEN Ordering Facility: [facility] Address: [address] Performed By: #### 5 7021-8 #### [facility] CLIA [id number] [address] [place] Eosinophils/100 WBC (Bld) 3.0 % Normal [facility] Comment on above: Order Comment: Speci men Type: BLOOD SPECIMEN Ordering Facility: [facility] Address: [address] [place] [address] Performed By: #### 5 7021-8 #### [facility] CLIA [id number] [address] [place] [address] [place] Erythrocyte distribution width (RBC) [Ratio] 13.3 % Normal 11.5-15.0 [facility] Comment on above: Order Comment: Speci men Type: BLOOD SPECIMEN Ordering Facility: [facility] Address: [address] [place] [address] Performed By: #### 5 7021-8 #### [facility] CLIA [id number] [address] [place] Hematocrit (Bld) [Volume fraction] 42.3 % Normal 36.0-46.0 [facility] Comment on above: Order Comment: Speci men Type: BLOOD SPECIMEN Ordering Facility: [facility] Address: [address] Performed By: #### 5 7021-8 #### [facility] CLIA [id number] [address] [place] [address] [place] Hemoglobin (Bld) [Mass/Vol] 13.6 g/dL Normal 11.5-15.5 [facility] Comment on above: Order Comment: Speci men Type: BLOOD SPECIMEN Ordering Facility: [facility] Address: [address] Performed By: #### 5 7021-8 #### [facility] CLIA [id number] [address] [place] [address] [place] Immature granulocytes (Bld) [#/Vol] 10*3/uL Normal <0.10 [facility] Comment on above: Order Comment: Speci men Type: BLOOD SPECIMEN Ordering Facility: [facility] Address: [address] Performed By: #### 5 7021-8 #### [facility] CLIA [id number] [address] [place] [address] [place] Immature granulocytes/100 WBC (Bld) 0.3 % Normal [facility] Comment on above: Order Comment: Speci men Type: BLOOD SPECIMEN Ordering Facility: [facility] Address: [address] [place] [address] Performed By: #### 5 7021-8 #### [facility] CLIA [id number] [address] [place] [address] [place] Lymphocytes (Bld) [#/Vol] 2.00 10*3/uL Normal 1.00-4.00 [facility] Comment on above: Order Comment: Speci men Type: BLOOD SPECIMEN Ordering Facility: [facility] Address: [address] [place] [address] Performed By: #### 5 7021-8 #### [facility] CLIA [id number] [address] [place] Lymphocytes/100 WBC (Bld) 31.9 % Normal [facility] Comment on above: Order Comment: Speci men Type: BLOOD SPECIMEN Ordering Facility: [facility] Address: [address] [place] [address] Performed By: #### 5 7021-8 #### [facility] CLIA [id number] [address] [place] [address] [place] MCH (RBC) [Entitic mass] 28.9 pg Normal 26.0-34.0 [facility] Comment on above: Order Comment: Speci men Type: BLOOD SPECIMEN Ordering Facility: [facility] Address: [address] [place], [place] [address] Performed By: #### 5 7021-8 #### [facility] CLIA [id number] [address] [place] [address] [place] MCHC (RBC) [Mass/Vol] 32.2 g/dL Normal 30.5-36.0 [facility] Comment on above: Order Comment: Speci men Type: BLOOD SPECIMEN Ordering Facility: [facility] Address: [address] [place], [place] [address] Performed By: #### 5 7021-8 #### [facility] CLIA [id number] [address] [place] [address] [place] MCV (RBC) [Entitic vol] 89.8 fL Normal 80.0-100.0 [facility] Comment on above: Order Comment: Speci men Type: BLOOD SPECIMEN Ordering Facility: [facility] Address: [address] Performed By: #### 5 7021-8 #### [facility] CLIA [id number] [address] [place] [address] [place] Monocytes (Bld) [#/Vol] 0.60 10*3/uL Normal <0.87 [facility] Comment on above: Order Comment: Speci men Type: BLOOD SPECIMEN Ordering Facility: [facility] Address: [address] Performed By: #### 5 7021-8 #### [facility] CLIA [id number] [address] [place] [address] [place] Monocytes/100 WBC (Bld) 9.6 % Normal [facility] Comment on above: Order Comment: Speci men Type: BLOOD SPECIMEN Ordering Facility: [facility] Address: [address] Performed By: #### 5 7021-8 #### [facility] CLIA [id number] [address] [place] [address] [place] Neutrophils (Bld) [#/Vol] 3.39 10*3/uL Normal 1.45-7.50 [facility] Comment on above: Order Comment: Speci men Type: BLOOD SPECIMEN Ordering Facility: [facility] Address: [address] Performed By: #### 5 7021-8 #### [facility] CLIA [id number] [address] [place] [address] [place] Neutrophils/100 WBC (Bld) 54.2 % Normal [facility] Comment on above: Order Comment: Speci men Type: BLOOD SPECIMEN Ordering Facility: [facility] Address: [address] Performed By: #### 5 7021-8 #### [facility] CLIA [id number] [address] [place] [address] [place] Nucleated RBC (Bld) [#/Vol] 10*3/uL Normal <0.01 [facility] Comment on above: Order Comment: Speci men Type: BLOOD SPECIMEN Ordering Facility: [facility] Address: [address] [place], [place] [address] Performed By: #### 5 7021-8 #### [facility] CLIA [id number] [address] [place] [address] [place] Nucleated RBC/100 WBC (Bld) [Ratio] 0.0 /100 WBC Normal [facility] Comment on above: Order Comment: Speci men Type: BLOOD SPECIMEN Ordering Facility: [facility] Address: [address] [place], [place] [address] Performed By: #### 5 7021-8 #### [facility] CLIA [id number] [address] [place] [address] [place] Platelet mean volume (Bld) [Entitic vol] 11.9 fL Normal 9.0-12.7 [facility] Comment on above: Order Comment: Speci men Type: BLOOD SPECIMEN Ordering Facility: [facility] Address: [address] [place], [place] [address] Performed By: #### 5 7021-8 #### [facility] CLIA [id number] [address] [place] [address] [place] Platelets (Bld) [#/Vol] 219 10*3/uL Normal 150-400 [facility] Comment on above: Order Comment: Speci men Type: BLOOD SPECIMEN Ordering Facility: [facility] Address: [address] [place] [address] Performed By: #### 5 7021-8 #### [facility] CLIA [id number] [address] [place] [address] [place] RBC (Bld) [#/Vol] 4.71 10*6/uL Normal 3.90-5.20 [facility] Comment on above: Order Comment: Speci men Type: BLOOD SPECIMEN Ordering Facility: [facility] Address: [address] [place] [address] Performed By: #### 5 7021-8 #### [facility] CLIA [id number] [address] [place] [address] [place] WBC (Bld) [#/Vol] 6.26 10*3/uL Normal 3.70-11.00 [facility] Comment on above: Order Comment: Speci men Type: BLOOD SPECIMEN Ordering Facility: [facility] Address: [address] [place] [address] Performed By: #### 5 7021-8 #### [facility] CLIA [id number] [address] [place] [address] [place] Cortis SerPl-ncon 10-10-19 Cortisol [Mass/Vol] 8.0 ug/dL Normal 4.8-19.5 [facility] Comment on above: Order Comment: Speci men Type: BLOOD SPECIMEN Ordering Facility: [facility] Address: [address] [place] [address] Result Comment: Prov ided reference range is from 6-10 AM sample collection time. Cortisol Reference Range: 6-10 AM = 4.8-19.5 ug/dL, 4-8 PM = 2.5-11.9 ug/dL Performed By: #### 1 989-3 #### [facility] CLIA [id number] [address] [place] [address] [place] NT-proBNP SerPl-mCncon 10-09 Natriuretic peptide.B prohormone N-Terminal [Mass/Vol] 251 pg/mL High <125 [facility] Comment on above: Order Comment: Speci men Type: BLOOD SPECIMEN Ordering Facility: [facility] Address: [address] [place] [address] Performed By: #### 1 989-3 #### [facility] CLIA [id number] [address] [place] [id number] [place] TSH SerPl-aCncon 10-09-2022 TSH Qn 4.130 m[IU]/L Normal 0.270-4.200 [facility] Comment on above: Order Comment: Speci men Type: BLOOD SPECIMEN Ordering Facility: [facility] Address: [address] [place] [address] Result Comment: If t he patient is , TSH reference range varies by gestational period: First Trimester (weeks 9-12): 0.180-2.990 mIU/L Second Trimester: 0.110-3.980 mIU/L Third Trimester: 0.480-4.710 mIU/L Rohit Mares et al. A Practical Approach for the Verifications and Determination of Site- and Trimester-Specific Reference Intervals for Thyroid Function tests in . Thyroid, 2019:29:3:412-420. Hany Torre, et al. 2017 Guidelines of the [place] Thyroid Association for the Diagnosis and Management of Thyroid Disease during and the . Thyroid, 2017:27:3:315-389. Performed By: #### 1 989-3 #### [facility] CLIA [id number] [address] [place], [place] [id number] [place] Zoey 10-06-2022 FRANKN Telephone (AVPEMA) -- ESME MORFIN ([id number]) 1975 F Date Time Provider Department 10/06/22 NORM HANNA During your visit today, we recorded the following information about you: Norm Hanna PA-C 10/06/2022 3:05 PM Signed Greetings Your patient was seen for preanesthesia consult 10/06/2022. Esme Morfin is scheduled for ENDOMETRIAL BX W/ ENDOCERVICAL SAMPLING W/O CERVICAL DILATION with Dr. Eleanor Kenny on 10/23/2022. Patient still complaining of palpations mostly at night time. Patient will complete pre op lab work 10/07/2022 AM. Do you feel they are medically optimized and ok to proceed as scheduled? How should we proceed? Thank you, Norm Hanna PA-C Preanesthesia Consultation [facility] Lizzie Leavitt MD 10/06/2022 3:12 PM Signed Should be fine from endocrine standpoint but awaiting labs that were recently ordered, thanks Eleanor Kenny, 10/06/2022 4:24 PM Signed Esme declines to proceed at [facility] I will need to find a date/time at [place] that can be schedule please complete your workup thanks Luis F Barraza, AERIAL SURVEY TECHNICIAN.DRILL PRESS HAND 10/07/2022 2:00 PM Signed patient had a monitor at an outside hospital --- I never got the results please find Hx of PVCs and was previously on metoprolol and may need again if she is still having palpitations BP and HR??? Luis F Barraza, RN, MSN, URBAN REDEVELOPMENT SPECIALIST-C Adult Nurse Practitioner Rowan Verma Department of Cardiovascular Medicine [facility] Heart, Vascular, Thoracic [facility] Norm Hanna PA-C 10/08/2022 10:47 AM Signed Event monitor results from PCP 06/2022 full report will be scanned into [employer]. SILVANA Puckett Kelly D, AERIAL SURVEY TECHNICIAN.DRILL PRESS HAND 10/08/2022 1:31 PM Signed monitor reviewed occasional PACs, PSVT--- no concerning dysrhythmias on monitor Luis F Barraza RN, MSN, URBAN REDEVELOPMENT SPECIALIST-C Adult Nurse Practitioner Rowan Verma Department of Cardiovascular Medicine [facility] Heart, Vascular, Thoracic [facility] Eleanor Kenny DO 10/16/2022 9:39 AM Signed I am aware she declines to be at [facility] I am out of office and out of town since 10/09 and not returning until 10/19 I have sent to regional vice president surgical sales to remove from Monday 10/23 and will contact patient once date at [place] determined. Allergies As of Date: 10/06/2022 Noted Allergy Reaction Contrast Dye (IODINE) 11/04/2020 14 - Other: See Comments MOBIC (MELOXICAM) 08/05/2016 5 - Intolerance Comments: GI bleed with transfusion MOTRIN (IBUPROFEN) 11/06/2015 14 - Other: See Comments Comments: GI Bleed NSAIDS (NON-STEROIDAL ANTI-INFLAM*03/05/2016 16 - Unknown PREDNISONE 08/05/2016 15 - Contraindication-Medical Parnell* Comments: GI bleed SCOPOLAMINE 12/01/2016 1 - Mental Status Change Comments: Paranoia, confusion, hallucination Date Reviewed: 10/06/2022 Reviewed by: Latrice Ramos Ma - Fully Assessed Reason for Visit: Pre-Op Exam [87] Cmt: increased palpations pre op recommendations and optimization Primary Visit Diagnosis:Palpitations [R00.2] Prescriptions as of 10/16/2022 - levothyroxine (SYNTHROID) 50 mcg tablet Take 1 tablet by mouth once daily. - ergocalciferol 50,000 unit capsule (VITAMIN D2, DRISDOL) Take 1 capsule by mouth two times a week. - zaleplon (SONATA) 10 mg capsule Take 10 mg by mouth daily at bedtime. Pt takes 10mg qhs - dulaglutide (TRULICITY) 0.75 mg/0.5 mL pen injector Inject 0.75 mg subcutaneously one time a week. - acarbose (PRECOSE) 50 mg tablet Take 1 tablet by mouth three times daily. - glucagon (BAQSIMI) 3 mg/actuation nasal spray Use 1 [place] in the nose as needed for low blood sugar. May repeat after 15 minutes using a new device if there is no response. - Blood-Glucose Sensor (FREESTYLE NBA 3 SENSOR) vinny Use to check glucose 4 times or more daily. Change sensor every 14 days. - blood sugar diagnostic (TRUE METRIX GLUCOSE TEST STRIP) test strip Use as instructed to check glucose 4 x daily or more as needed. - tretinoin (RETIN-A) 0.025 % topical cream Apply to affected area daily at bedtime. - diclofenac (VOLTAREN ARTHRITIS PAIN) 1 % topical gel Apply 4 g to affected area four times daily. - CPAP/BIPAP/OTHER Type .CPAPSettings into a note to see current settings/supplies/DME information. - ALPRAZolam (XANAX) 0.25 mg tablet Take 0.5 tablets by mouth as needed. - meclizine (ANTIVERT) 25 mg tab Take 0.5-1 tablets by mouth three times daily as needed (for dizziness.). - BIPAP Lifetime supplies for BiPAP 12/8 cm H20 including mask, heated tubing, humidity, filters. Dx: G47.3 (more content not included)... Normal [facility] HISTORY PHYSICALon HISTORY PHYSICAL HNO ID: [id number] Author: Norm Hanna PA-C Service: ? Author Type: Physician Care Asst Type: HANDP Filed: 10/13/2022 7:42 AM Note Text: HISTORY AND PHYSICAL EXAMINATION SERVICE DATE: 10/06/2022 SERVICE TIME: 2:07 PM PRIMARY CARE PHYSICIAN: Farhat Pineda MD REASON FOR VISIT: Esme Morfin is a 47 year old female who is scheduled for ENDOMETRIAL BX W/ ENDOCERVICAL SAMPLING W/O CERVICAL DILATION at the request of Dr. Eleanor Kenny for consultation. My final recommendation will be communicated back to the requesting physician by way of shared medical record or letter. The patient has the following: ACTIVE PROBLEM LIST Chronic Lymphocytic Thyroiditis Dysmetabolic Syndrome X Hx of DIABETES IN PREG-UNSPEC MALAISE AND FATIGUE NEC Obesity, Unspecified Flushing Type 2 Diabetes Mellitus Without Complication, Without Long-Term Current Use of Insulin (Hcc) Micropapillary carcinoma of thyroid (3 mm) Talia (Obstructive Sleep Apnea) GI Bleeding Secondary Osteoarthritis of Multiple Sites Vitamin B12 Deficiency (Dietary) Anemia Rheumatoid Arthritis of Multiple Sites Without Rheumatoid Factor (Hcc) Positive Anti-Ccp Test Nausea and Vomiting in Adult Morbid Obesity (Hcc) Pneumonia Postoperative Malabsorption Diarrhea, Unspecified Vomiting of Fecal Matter With Nausea Type 2 Diabetes Mellitus Without Retinopathy (Hcc) Fibromyalgia Mitral and Aortic Valve Regurgitation Esophageal Reflux Anemia Obesity, Class I, Bmi 30-34.9 Iron Deficiency Anemia Glaucoma Suspect of Both Eyes Dermatochalasis of Both Upper Eyelids Conjunctivitis Dry Eye Syndrome of Bilateral Lacrimal Glands History of Cervical Dysplasia Postmenopausal Bleeding Ovarian Cyst, Complex Abnormal Endometrial Ultrasound Thickened Endometrium Ovarian Cyst, Left Palpitations Subjective CHIEF COMPLAINT: PMB HPI: Patient is a 47 year old female presenting to pre-anesthesia consultation. Patient has PMB since beginning of September 2022 that lasted one week. states she had no periods for 2 years. denies vaginal discharge or pain. Recommended for above surgery. 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 Mitral and aortic valve regurgitation 09/08/2009 Aortic insufficiency EF 60% DR Zuniga -- judged to be non-surgical and mild Nephrolithiasis TALIA (obstructive sleep apnea) 2015 on CPAP and BiPAP Postoperative malabsorption 03/04/2017 Rheumatoid arthritis (HCC) was treated with mtx plaquenil in past Thyroiditis, unspecified Thyroiditis Viral pneumonia, unspecified Pneumonia Vomiting of fecal matter PAST SURGICAL HISTORY Procedure Laterality Date ANES HRNA REPAIR UPR ABD TABDL RPR DIPHRG HRNA open 2001 COLONOSCOPY FLX DX W/COLLJ SPEC WHEN PFRMD Colonoscopy COLPO OF CERVIX WBIOPSYECC 04/04/2018 ESOPHAGOGASTRODUODENOSCOPY TRANSORAL DIAGNOSTIC EGD multiple GASTRIC BYPASS HX 2017 LAPAROSCOPY SURG CHOLECYSTECTOMY Cholecystectomy, lap LIG/TRNSXJ FLP TUBE ABDL/VAG APPR UNI/BI 1996 PAST SURGICAL HISTORY OF cardiac cath REPAIR PARAESOPHAGEAL HERNIA THYROIDECTOMY TOTAL/COMPLETE 02-04-2010 ? patial/incomplete FAMILY HISTORY Problem Relation Age of Onset Thyroid Mother graves' s/p I 131 Glaucoma Mother Heart Father Thyroid Sister goiter. None Sister Garcia's palsy. Diabetes Maternal Grandmother Diabetes Maternal Grandfather SOCIAL HISTORY: Social History Tobacco Use Smoking status: Never Smokeless tobacco: Never Vaping Use Vaping Use: Never used Substance Use Topics Alcohol use: Not Currently Comment: Social Drug use: No MEDICATIONS: Prior to Admission medications as of 10/06/22 1419 Medication Sig Last Dose Taking zaleplon (SONATA) 10 mg capsule Take 10 mg by mouth daily at bedtime. Pt takes 10mg qhs Taking Yes dulaglutide (TRULICITY) 0.75 mg/0.5 mL pen injector Inject 0.75 mg subcutaneously one time a week. Taking Yes acarbose (PRECOSE) 50 mg tablet Take 1 tablet by mouth three times daily. Taking Yes Blood-Glucose Sensor (FREESTYLE NBA 3 SENSOR) vinny Use to check glucose 4 times or more daily. Change sensor every 14 days. Taking Yes blood sugar diagnostic (TRUE METRIX GLUCOSE TEST STRIP) test strip Use as instructed to check glucose 4 x daily or more as needed. Taking Yes tretinoin (RETIN-A) 0.025 % topical cream Apply to affected area daily at bedtime. Taking Yes cholecalciferol (VITAMIN D-3) 5,000 unit tab 2 tabs po q am for 90 days Patient taking differently: 50,000 Units. 1 tab per week Taking Yes diclofenac (VOLTAREN ARTHR (more content not included)... Normal [facility] 10-02-2022 [facility] Office Visit (OBGYCC ) -- ESME MORFIN ([id number]) 1975 F Date Time Provider Department 10/02/22 1:40 PM [facility] During your visit today, we recorded the following information about you: Pulse Blood pressure Weight 74/minute 110/72 99.8 kg Eleanor Kenny DO 10/02/2022 2:35 PM Signed CC: PMB Follow Up: Esme Morfin 47 year old here for follow up OV for postmenopausal bleeding. Reports no menses in 2 years, postmenopausal, in 08/2022 had VB for 7 days with clots and cramping, bright red. No HRT. 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 Mitral and aortic valve regurgitation 09/08/2009 Aortic insufficiency EF 60% DR Zuniga -- judged to be non-surgical and mild Nephrolithiasis TALIA (obstructive sleep apnea) 2016 on CPAP and BiPAP Postoperative malabsorption 03/04/2017 Rheumatoid arthritis (HCC) was treated with mtx plaquenil in past Thyroiditis, unspecified Thyroiditis Viral pneumonia, unspecified Pneumonia Vomiting of fecal matter PAST SURGICAL HISTORY Procedure Laterality Date ANES HRNA REPAIR UPR ABD TABDL RPR DIPHRG HRNA open 2001 COLONOSCOPY FLX DX W/COLLJ SPEC WHEN PFRMD Colonoscopy COLPO OF CERVIX WBIOPSYECC 04/04/2018 ESOPHAGOGASTRODUODENOSCOPY TRANSORAL DIAGNOSTIC EGD multiple GASTRIC BYPASS HX 2017 LAPAROSCOPY SURG CHOLECYSTECTOMY Cholecystectomy, lap LIG/TRNSXJ FLP TUBE ABDL/VAG APPR UNI/BI 1996 PAST SURGICAL HISTORY OF cardiac cath REPAIR PARAESOPHAGEAL HERNIA THYROIDECTOMY TOTAL/COMPLETE 02-04-2010 ? patial/incomplete Review of Systems: INTERNET DATABASE SPECIALIST: SEE HPI The remainder of the review of systems is negative. Exam: BP 110/72 Pulse 74 Wt 220 lb (99.8 kg) LMP (LMP Unknown) BMI 41.57 kg/m? General: a/o x 3, NAD. Abdomen: normal, BS, soft, NT, ND,Body mass index is 41.57 kg/m?. Indication Evaluation of abnormal uterine bleeding: postmenopausal bleeding Impression The uterus is retroverted and measures 71 mm x 37 mm x 49 mm. The endometrial thickness is 6.8 mm. The right ovary measures 22 mm x 17 mm x 14 mm. There is a 1.5cm complex appearing cyst. It has some internal debris and an echogenic focus. The left ovary measures 22 mm x 19 mm x 16 mm. Physiological in appearance. There is no free fluid visualized. Recommendations Clinically correlate. Endometrial lining as above. O-RADS 2 ovarian lesion, non-simple cyst, likely benign. Follow up ultrasound is recommended in 8-12 weeks. Menstrual History Cycle: menopausal Method Transabdominal, transvaginal, 3D ultrasound examination, Color Doppler examination Uterus Uterus: Visualized Uterus position: retroverted Description of uterine malformations: normally shaped Myometrium: normal Endometrium: thickened Cervix details: normal Uterus long 71 mm Uterus ap 37 mm Uterus tr 49 mm Uterus Vol 66.2 cm? Endometrial thickness, total 6.8 mm Right Ovary Rt ovary: Visualized Outline: smooth Rt ovary D1 22 mm Rt ovary D2 17 mm Rt ovary D3 14 mm Rt ovary Vol 2.9 cm? Rt ovarian cyst(s): Cysts identified Rt ovarian cyst D1 13 mm Rt ovarian cyst D2 10 mm Rt ovarian cyst D3 11 mm Rt ovarian cyst mean 11.3 mm Rt ovarian cyst vol 0.749 cm? Rt ovarian cyst findings: Unilocular non-simple cyst (internal debris and/or incomplete septation) with smooth inner wall, echogenic foci Left Ovary Lt ovary: Visualized Outline: smooth Lt ovary morphology: normal Lt ovary D1 22 mm Lt ovary D2 19 mm Lt ovary D3 16 mm Lt ovary Vol 3.6 cm? Cul de Sac Visualized. no free fluid visualized Performed By: Jocelyne Han RDMS Read By: Janene Harrison M.D. ASSESSMENT/PROBLEM LIST/PLANS: 47 year old WF here for PMB Follow Up: 1.) US as copied above reviewed in detail with Esme, discussed endometrial biopsy as an initial test for women with abnormal uterine bleeding due to its high sensitivity, low complication rate, and low cost. Endometrial biopsy is a more cost-effective initial approach than ultrasound when the prevalence of endometrial carcinoma is at least 15 percent. Endometrial biopsy is required for histological diagnosis if the endometrium is not adequately visualized, the stripe is ?4 mm (focal or global), and in women with persistent bleeding. Blind biopsy is most accurate in women with a globally thickened endometrium; visually directed sampling (ie, hysteroscopy) is preferable for women with focal abnormalities. TVUS is an acceptable alternative i (more content not included)... Normal [facility] -- ESME MORFIN ([id number]) 1975 F Date Time Provider Department 09/16/22 [facility]OR KENNY [facility] During your visit today, we recorded the following information about you: Bella Douglass 09/16/2022 2:04 PM Signed Attempted to reach patient by phone to reschedule follow up visit from US per provider request. Voicemail is full and unable to leave a message. My Chart message was sent requesting patient to call for new appt. Allergies As of Date: 09/16/2022 Noted Allergy Reaction Contrast Dye (IODINE) 11/04/2020 14 - Other: See Comments MOBIC (MELOXICAM) 08/05/2016 5 - Intolerance Comments: GI bleed with transfusion MOTRIN (IBUPROFEN) 11/06/2015 14 - Other: See Comments Comments: GI Bleed NSAIDS (NON-STEROIDAL ANTI-INFLAM*03/05/2016 16 - Unknown PREDNISONE 08/05/2016 15 - Contraindication-Medical Parnell* Comments: GI bleed SCOPOLAMINE 12/01/2016 1 - Mental Status Change Comments: Paranoia, confusion, hallucination Date Reviewed: 07/16/2022 Reviewed by: Bud Ca APRN.DRILL PRESS HAND - Fully Assessed Reason for Visit: Scheduling [3921] Prescriptions as of 09/18/2022 - dulaglutide (TRULICITY) 0.75 mg/0.5 mL pen injector Inject 0.75 mg subcutaneously one time a week. - acarbose (PRECOSE) 50 mg tablet Take 1 tablet by mouth three times daily. - glucagon (BAQSIMI) 3 mg/actuation nasal spray Use 1 [place] in the nose as needed for low blood sugar. May repeat after 15 minutes using a new device if there is no response. - Blood-Glucose Sensor (FREESTYLE NBA 3 SENSOR) vinny Use to check glucose 4 times or more daily. Change sensor every 14 days. - blood sugar diagnostic (TRUE METRIX GLUCOSE TEST STRIP) test strip Use as instructed to check glucose 4 x daily or more as needed. - tretinoin (RETIN-A) 0.025 % topical cream Apply to affected area daily at bedtime. - cholecalciferol (VITAMIN D-3) 5,000 unit tab 2 tabs po q am for 90 days - diclofenac (VOLTAREN ARTHRITIS PAIN) 1 % topical gel Apply 4 g to affected area four times daily. - CPAP/BIPAP/OTHER Type .CPAPSettings into a note to see current settings/supplies/DME information. - ALPRAZolam (XANAX) 0.25 mg tablet Take 0.5 tablets by mouth as needed. - meclizine (ANTIVERT) 25 mg tab Take 0.5-1 tablets by mouth three times daily as needed (for dizziness.). - BIPAP Lifetime supplies for BiPAP 12/8 cm H20 including mask, heated tubing, humidity, filters. Dx: G47.33 - magnesium oxide (MAG-OX) 400 mg (241.3 mg magnesium) tablet Take 1 tablet by mouth once daily. - promethazine (PHENERGAN) 25 mg tablet Take 25 mg by mouth four times daily as needed. - thiamine (VITAMIN B-1) 100 mg tablet Take 1 tablet by mouth once daily. - cyanocobalamin 1,000 mcg/mL inject 1 milliliter intramuscularly ONCE A MONTH as instructed - pantoprazole DR (PROTONIX) 40 mg tablet Take 1 tablet by mouth as needed. - Syringe with Needle, Safety (EASY TOUCH SHEATHLOCK SYRG-NDL) 3 mL 25 gauge x 1 syrg Weekly methotrexate injections, monthly vit b12 injections as instructed Meds Comments as of 08/15/2020: Would like refill of promethazine as of 08/15/2020 Problem List As Of Date 09/16/2022 Noted Resolved CHR LYMPHOCYT THYROIDIT [E06.3] 06/17/2006 DYSMETABOLIC SYNDROME X [E88.81] 06/17/2006 Hx of DIABETES IN PREG-UNSPEC [TPU1513] 06/17/2006 MALAISE AND FATIGUE NEC [R53.81, R53.83] 06/17/2006 OBESITY NOS [E66.9] 06/17/2006 FLUSHING [R23.2] 04/20/2007 DIABETES MELLITUS TYPE II UNCONTR UNCOMPL [IMO0*04/17/2008 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 TALIA (obstructive sleep apnea) [G47.33] GI bleeding [K92.2] 06/08/2010 Secondary osteoarthritis of multiple sites [M15*08/05/2016 Vitamin B12 deficiency (dietary) anemia [D51.8] 08/09/2016 Rheumatoid arthritis of multiple sites without *08/09/2016 Positive anti-CCP test [R76.8] 08/09/2016 Nausea and vomiting in adult [R11.2] 08/20/2016 Morbid obesity due to excess calories (HCC) [E6*08/31/2016 12/01/2016 Hernia, paraesophageal [K44.9] 08/31/2016 12/01/2016 Morbid obesity (HCC) [E66.01] 11/24/2016 Pneumonia [J18.9] 12/06/2016 Postoperative malabsorption [K91.2] 03/04/2017 Diarrhea, unspecified [R19.7] 09/24/2017 Vomiting of fecal matter with nausea [R11.13] 09/24/2017 Type 2 diabetes mellitus without retinopathy (H* Fibromyalgia [M79.7] 09/08/2009 Mitral and aortic valve regurgitation [I08.0] 09/08/2009 Esophageal reflux [K21.9] Anemia [D64.9] Obesity, Class I, BMI 30-34.9 [E66.9] 01/10/2018 Iron deficiency anemia [D50.9] 07/29/2018 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 Normal [facility] PELVIC US WHIon 09-10-2022 [facility] CNOVon 07-20-2022 [facility] Office Visit (OBGYCC ) -- ESME MORFIN ([id number]) 1975 F Date Time Provider Department 07/20/22 9:30 AM ELEANOR KENNY [facility] During your visit today, we recorded the following information about you: Eleanor Kenny, 07/20/2022 9:25 AM Signed patient called, has not scheduled/completed pelvic US ordered in 06/2022 reports has a lot going on, will call to schedule when desiring to proceed. Allergies As of Date: 07/20/2022 Noted Allergy Reaction Contrast Dye (IODINE) 11/04/2020 14 - Other: See Comments MOBIC (MELOXICAM) 08/05/2016 5 - Intolerance Comments: GI bleed with transfusion MOTRIN (IBUPROFEN) 11/06/2015 14 - Other: See Comments Comments: GI Bleed NSAIDS (NON-STEROIDAL ANTI-INFLAM*03/05/2016 16 - Unknown PREDNISONE 08/05/2016 15 - Contraindication-Medical Parnell* Comments: GI bleed SCOPOLAMINE 12/01/2016 1 - Mental Status Change Comments: Paranoia, confusion, hallucination Date Reviewed: 07/16/2022 Reviewed by: Bud Ca APRN.DRILL PRESS HAND - Fully Assessed Reason for Visit: Appointment Cancelled [1023] Primary Visit Diagnosis:APPOINTMENT CANCELLED Prescriptions as of 07/20/2022 - dulaglutide (TRULICITY) 0.75 mg/0.5 mL pen injector Inject 0.75 mg subcutaneously one time a week. - acarbose (PRECOSE) 50 mg tablet Take 1 tablet by mouth three times daily. - zaleplon (SONATA) 5 mg capsule Take 2 capsules by mouth daily at bedtime for 60 days. Take 1 capsule if unable to fall back to sleep after waking during night as long as 4 hours remain for sleep. - glucagon (BAQSIMI) 3 mg/actuation nasal spray Use 1 [place] in the nose as needed for low blood sugar. May repeat after 15 minutes using a new device if there is no response. - Blood-Glucose Sensor (FREESTYLE NBA 3 SENSOR) vinny Use to check glucose 4 times or more daily. Change sensor every 14 days. - blood sugar diagnostic (TRUE METRIX GLUCOSE TEST STRIP) test strip Use as instructed to check glucose 4 x daily or more as needed. - tretinoin (RETIN-A) 0.025 % topical cream Apply to affected area daily at bedtime. - cholecalciferol (VITAMIN D-3) 5,000 unit tab 2 tabs po q am for 90 days - diclofenac (VOLTAREN ARTHRITIS PAIN) 1 % topical gel Apply 4 g to affected area four times daily. - CPAP/BIPAP/OTHER Type .CPAPSettings into a note to see current settings/supplies/DME information. - ALPRAZolam (XANAX) 0.25 mg tablet Take 0.5 tablets by mouth as needed. - meclizine (ANTIVERT) 25 mg tab Take 0.5-1 tablets by mouth three times daily as needed (for dizziness.). - BIPAP Lifetime supplies for BiPAP 12/8 cm H20 including mask, heated tubing, humidity, filters. Dx: G47.33 - magnesium oxide (MAG-OX) 400 mg (241.3 mg magnesium) tablet Take 1 tablet by mouth once daily. - promethazine (PHENERGAN) 25 mg tablet Take 25 mg by mouth four times daily as needed. - thiamine (VITAMIN B-1) 100 mg tablet Take 1 tablet by mouth once daily. - cyanocobalamin 1,000 mcg/mL inject 1 milliliter intramuscularly ONCE A MONTH as instructed - pantoprazole DR (PROTONIX) 40 mg tablet Take 1 tablet by mouth as needed. - Syringe with Needle, Safety (EASY TOUCH SHEATHLOCK SYRG-NDL) 3 mL 25 gauge x 1 syrg Weekly methotrexate injections, monthly vit b12 injections as instructed Meds Comments as of 08/15/2020: Would like refill of promethazine as of 08/15/2020 Problem List As Of Date 07/20/2022 Noted Resolved CHR LYMPHOCYT THYROIDIT [E06.3] 06/17/2006 DYSMETABOLIC SYNDROME X [E88.81] 06/17/2006 Hx of DIABETES IN PREG-UNSPEC [[id number]] 06/17/2006 MALAISE AND FATIGUE NEC [R53.81, R53.83] 06/17/2006 OBESITY NOS [E66.9] 06/17/2006 FLUSHING [R23.2] 04/20/2007 DIABETES MELLITUS TYPE II UNCONTR UNCOMPL [IMO0*04/17/2008 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 TALIA (obstructive sleep apnea) [G47.33] GI bleeding [K92.2] 06/08/2010 Secondary osteoarthritis of multiple sites [M15*08/05/2016 Vitamin B12 deficiency (dietary) anemia [D51.8] 08/09/2016 Rheumatoid arthritis of multiple sites without *08/09/2016 Positive anti-CCP test [R76.8] 08/09/2016 Nausea and vomiting in adult [R11.2] 08/20/2016 Morbid obesity due to excess calories (HCC) [E6*08/31/2016 12/01/2016 Hernia, paraesophageal [K44.9] 08/31/2016 12/01/2016 Morbid obesity (HCC) [E66.01] 11/24/2016 Pneumonia [J18.9] 12/06/2016 Postoperative malabsorption [K91.2] 03/04/2017 Diarrhea, unspecified [R19.7] 09/24/2017 Vomiting of fecal matter with nausea [R11.13] 09/24/2017 Type 2 diabetes mellitus without retinopathy (H* Fibromyalgia [M79.7] 09/08/2009 Mitral and aortic valve regurgitation [I08.0] 09/08/2009 Esophageal reflux [K21.9] Anemia [D64.9] Obesity, Class I, BMI 30-34.9 [E66.9] 01/10/2018 Iron deficiency anemia [D50.9] 07/29/2018 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 Normal [facility] POINT OF CARE GLUCOSEon 06-09 Glucose [Mass/Vol] 107 mg/dL Critically high 74-106 [facility] Comment on above: Performed By: #### JAISON BETTS #### [facility] [address] [address] [address] Ling Martin Glucose [Mass/Vol] 89 mg/dL Normal 74-106 [facility] Comment on above: Performed By: #### JAISON BETTS #### [facility] [address] [address] [address] Ling Martin Glucose [Mass/Vol] 80 mg/dL Normal 74-106 [facility] Comment on above: Performed By: #### P OCGLUC #### [facility] [address] [place] [address] Dr. Ling Martin Glucose [Mass/Vol] 86 mg/dL Normal 74-106 [facility] Comment on above: Performed By: #### P OCGLUC #### [facility] [address] [place] [address] Dr. Ling Martin AMYLASEon 07-05-2022 Amylase [Catalytic activity/Vol] 49 U/L Normal 25-115 [facility] Comment on above: Performed By: #### C BC #### [facility] [address] [place] [address] Dr. Ling Martin CBC AUTO DIFFon 07-05-2022 BASO # 0.1 103/ul Normal 0.0-0.1 [facility] Comment on above: Performed By: #### P OCGLUC #### [facility] [address] [place] [address] Dr. Ling Martin Basophils/100 WBC (Bld) 0.8 % Normal 0.2-2.0 [facility] Comment on above: Performed By: #### P OCGLUC #### [facility] [address] [place] [address] Dr. Ling Martin EO # 0.2 103/ul Normal 0.0-0.7 [facility] Comment on above: Performed By: #### P OCGLUC #### [facility] [address] [place] [address] Dr. Ling Martin Eosinophils/100 WBC (Bld) 2.5 % Normal 0.9-7.0 [facility] Comment on above: Performed By: #### P OCGLUC #### [facility] [address] [place] [address] Dr. Ling Martin Erythrocyte distribution width (RBC) [Ratio] 13.4 % Normal 11.0-15.0 [facility] Comment on above: Performed By: #### P OCGLUC #### [facility] [address] [place] [address] Dr. Ling Martin Hematocrit (Bld) [Volume fraction] 43.0 % Normal 36.0-48.0 [facility] Comment on above: Performed By: #### P OCGLUC #### [facility] [address] [address] [address] Ling Martin Hemoglobin (Bld) [Mass/Vol] 14.2 g/dL Normal 12.0-16.0 [facility] Comment on above: Performed By: #### P OCGLUC #### [facility] [address] [address] [address] Ling Martin IG # 0.03 10e3/ul Normal 0.00-0.03 [facility] Comment on above: Performed By: #### P OCGLUC #### [facility] [address] [address] [address] Ling Martin IG % 0.4 % Normal 0.0-0.5 [facility] Comment on above: Performed By: #### P OCGLUC #### [facility] [address] [place] [address] Dr. Ling Martin LYMPH # 2.3 103/ul Normal 1.2-3.8 [facility] Comment on above: Performed By: #### P OCGLUC #### [facility] [address] [place] [address] Dr. Ling Martin Lymphocytes/100 WBC (Bld) 29.7 % Normal 20.5-60.0 [facility] Comment on above: Performed By: #### P OCGLUC #### [facility] [address] [place] [address] Dr. Ling Martin MANUAL DIFF REQ NO Normal [facility] Comment on above: Performed By: #### P OCGLUC #### [facility] [address] [address] [address] Ling Martin MCH (RBC) [Entitic mass] 29.0 pg Normal 26.7-34.0 [facility] Comment on above: Performed By: #### P OCGLUC #### [facility] [address] [place] [address] Dr. Ling Martin MCHC (RBC) [Mass/Vol] 33.0 g/dL Normal 29.9-35.2 [facility] Comment on above: Performed By: #### P OCGLUC #### [facility] [address] [address] [address] Ling Martin MCV (RBC) [Entitic vol] 87.8 fL Normal 81.0-99.0 [facility] Comment on above: Performed By: #### P OCGLUC #### [facility] [address] [place] [address] Dr. Ling Martin MONO # 0.6 103/ul Normal 0.3-0.8 [facility] Comment on above: Performed By: #### P OCGLUC #### [facility] [address] [place] [address] Dr. Ling Martin Monocytes/100 WBC (Bld) 7.9 % Normal 1.7-12.0 [facility] Comment on above: Performed By: #### P OCGLUC #### [facility] [address] [place] [address] Dr. Ling Martin NEUT # 4.5 103/ul Normal 1.4-6.5 [facility] Comment on above: Performed By: #### P OCGLUC #### [facility] [address] [place] [address] Dr. Ling Martin Neutrophils/100 WBC (Bld) 58.7 % Normal 43.0-75.0 [facility] Comment on above: Performed By: #### P OCGLUC #### [facility] [address] [place] [address] Dr. Ling Martin Platelet mean volume (Bld) [Entitic vol] 10.7 fL Normal 9.5-13.5 [facility] Comment on above: Performed By: #### P OCGLUC #### [facility] [address] [place] [address] Dr. Ling Martin PLT 257 103/ul Normal 150-450 [facility] Comment on above: Performed By: #### P OCGLUC #### [facility] [address] [place] [address] Dr. Ling Martin RBC 4.90 106/ul Normal 4.20-5.40 [facility] Comment on above: Performed By: #### P OCGLUC #### [facility] [address] [place] [address] Dr. Ling Martin WBC 7.7 103/ul Normal 4.0-11.0 [facility] Comment on above: Performed By: #### P OCGLUC #### [facility] [address] [address] [address] 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 RECS: -[place]/ peanut butter crackers--small qtys 2) ER for eval for diarrhea and dehydration Dannie Callaway MD Allergies As of Date: 07/05/2022 Noted Allergy Reaction Contrast Dye (IODINE) 11/04/2020 14 - Other: See Comments MOBIC (MELOXICAM) 08/05/2016 5 - Intolerance Comments: GI bleed with transfusion MOTRIN (IBUPROFEN) 11/06/2015 14 - Other: See Comments Comments: GI Bleed NSAIDS (NON-STEROIDAL ANTI-INFLAM*03/05/2016 16 - Unknown PREDNISONE 08/05/2016 15 - Contraindication-Medical Parnell* Comments: GI bleed SCOPOLAMINE 12/01/2016 1 - Mental Status Change Comments: Paranoia, confusion, hallucination Date Reviewed: 06/23/2022 Reviewed by: Marichuy Suarez, MD - Fully Assessed Reason for Visit: Patient Update [1234] Prescriptions as of 07/07/2022 - glucagon (BAQSIMI) 3 mg/actuation nasal spray Use 1 [place] in the nose as needed for low blood sugar. May repeat after 15 minutes using a new device if there is no response. - semaglutide (OZEMPIC) 0.25 mg or 0.5 mg (2 mg/3 mL) pen Inject 0.25 mg subcutaneously one time a week. - Blood-Glucose Sensor (Best Before MediaSTYLE NBA 3 SENSOR) vinny Use to check glucose 4 times or more daily. Change sensor every 14 days. - blood sugar diagnostic (TRUE METRIX GLUCOSE TEST STRIP) test strip Use as instructed to check glucose 4 x daily or more as needed. - tretinoin (RETIN-A) 0.025 % topical cream Apply to affected area daily at bedtime. - zaleplon (SONATA) 5 mg capsule Take 1 capsule if unable to fall back to sleep after waking during night as long as 4 hours remain for sleep. Do not start before May 28, 2022. - cholecalciferol (VITAMIN D-3) 5,000 unit tab 2 tabs po q am for 90 days - diclofenac (VOLTAREN ARTHRITIS PAIN) 1 % topical gel Apply 4 g to affected area four times daily. - CPAP/BIPAP/OTHER Type .CPAPSettings into a note to see current settings/supplies/DME information. - ALPRAZolam (XANAX) 0.25 mg tablet Take 0.5 tablets by mouth as needed. - meclizine (ANTIVERT) 25 mg tab Take 0.5-1 tablets by mouth three times daily as needed (for dizziness.). - BIPAP Lifetime supplies for BiPAP 12/8 cm H20 including mask, heated tubing, humidity, filters. Dx: G47.33 - magnesium oxide (MAG-OX) 400 mg (241.3 mg magnesium) tablet Take 1 tablet by mouth once daily. - promethazine (PHENERGAN) 25 mg tablet Take 25 mg by mouth four times daily as needed. - thiamine (VITAMIN B-1) 100 mg tablet Take 1 tablet by mouth once daily. - cyanocobalamin 1,000 mcg/mL inject 1 milliliter intramuscularly ONCE A MONTH as instructed - pantoprazole DR (PROTONIX) 40 mg tablet Take 1 tablet by mouth as needed. - Syringe with Needle, Safety (EASY TOUCH SHEATHLOCK SYRG-NDL) 3 mL 25 gauge x 1 syrg Weekly methotrexate injections, monthly vit b12 injections as instructed Meds Comments as of 08/15/2020: Would like refill of promethazine as of 08/15/2020 Problem List As Of Date 07/05/2022 Noted Resolved CHR LYMPHOCYT THYROIDIT [E06.3] 06/17/2006 DYSMETABOLIC SYNDROME X [E88.81] 06/17/2006 Hx of DIABETES IN PREG-UNSPEC [HJE7930] 06/17/2006 MALAISE AND FATIGUE NEC [R53.81, R53.83] 06/17/2006 OBESITY NOS [E66.9] 06/17/2006 FLUSHING [R23.2] 04/20/2007 DIABETES MELLITUS TYPE II UNCONTR UNCOMPL [IMO0*04/17/2008 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 TALIA (obstructive sleep apnea) [G47.33] GI bleeding [K92.2] 06/08/2010 Secondary osteoarthritis of multiple sites [M15*08/05/2016 Vitamin B12 deficiency (dietary) anemia [D51.8] 08/09/2016 Rheumatoid arthritis of multiple sites without *08/09/2016 Positive anti-CCP test [R76.8] 08/09/2016 Nausea and vomiting in adult [R11.2] 08/20/2016 Morbid obesity due to excess calories (HCC) [E6*08/31/2016 12/01/2016 Hernia, paraesophageal [K44.9] 08/31/2016 12/01/2016 Morbid obesity (HCC) [E66.01] 11/24/2016 Pneumonia [J18.9] 12/06/2016 Postoperative malabsorption [K91.2] 03/04/2017 Diarrhea, unspecified [R19.7] 09/24/2017 Vomiting of fecal matter with nausea [R11.13] 09/24/2017 Type 2 diabetes mellitus without retinopathy (H* Fibromyalgia [M79.7] 09/08/2009 Mitral and aortic valve regurgitation [I08.0] 09/08/2009 Esophageal reflux [K21.9] Anemia [D64.9] Obesity, Class I, BMI 30-34.9 [E66.9] 01/10/2018 Iron deficiency anemia [D50.9] 06 (more content not included)... Normal [facility] CULTURE URINEon 07-05-2022 CULTURE URINE Culture Observations : NO GROWTH. Normal [facility] Comment on above: Performed By: #### Yelitza WHITTAKER UMICRO #### [facility] [address] [place] [address] Dr. Ling Martin ER URINE PROFILEon 3 Bilirubin Ql (U) Negative Normal NEGATIVE [facility] Comment on above: Performed By: #### Yelitza WHITTAKER UMICRO #### [facility] [address] [place] [address] Dr. Ling Martin Clarity (U) CLEAR Normal CLEAR [facility] Comment on above: Performed By: #### Yelitza WHITTAKER UMICRO #### [facility] [address] [place] [address] Dr. Ling Martin Color (U) LT. YELLOW Normal YELLOW [facility] Comment on above: Performed By: #### Yelitza WHITTAKER UMICRO #### [facility] [address] [place] [address] Dr. Ling Martin ERUAHD A micrscopic examina tion will be performed if indicated. Normal [facility] Comment on above: Performed By: #### Yelitza WHITTAKER UMICRO #### [facility] [address] [place] [address] Dr. Lign Martin Glucose Ql (U) Negative Normal NEGATIVE [facility] Comment on above: Performed By: #### CONNIE BETTSRO #### [facility] [address] [place] [address] Dr. Ling Martin Hemoglobin Ql (U) SMALL Abnormal NEGATIVE [facility] Comment on above: Performed By: #### CONNIE BETTSRO #### [facility] [address] [place] [address] Dr. Ling Martin Ketones Ql (U) Negative Normal NEGATIVE [facility] Comment on above: Performed By: #### CONNIE BETTSRO #### [facility] [address] [place] [address] Dr. Ling Martin LEUKOCYTES Negative Normal NEGATIVE [facility] Comment on above: Performed By: #### Yelitza WHITTAKER UMICRO #### [facility] [address] [place] [address] Dr. Ling Martin Nitrite Ql (U) Negative Normal NEGATIVE [facility] Comment on above: Performed By: #### Yelitza WHITTAKER UMICRO #### [facility] [address] [place] [address] Dr. Ling Martin pH (U) 5.5 [pH] Normal 5-9 [facility] Comment on above: Performed By: #### Yelitza WHITTAKER UMICRO #### [facility] [address] [place] [address] Dr. Ling Martin SPEC GRAVITY 1.025 Normal 1.005-<=1.0 25 [facility] Comment on above: Performed By: #### Yelitza WHITTAKER UMICRO #### [facility] [address] [place] [address] Dr. Ling Martin UA PROTEIN Negative Normal NEGATIVE/ TRACE [facility] Comment on above: Performed By: #### Yelitza WHITTAKER UMICRO #### [facility] [address] [place] [address] Dr. Ling Martin UR MICRO IND INDICATED Normal [facility] Comment on above: Performed By: #### Yelitza WHITTAKER UMICRO #### [facility] [address] [place] [address] Dr. Ling Martin Urobilinogen Qn (U) 1.0 {Sera'U}/dL Normal 0.2 - 1. 0 [facility] Comment on above: Performed By: #### Yelitza WHITTAKER UMICRO #### [facility] [address] [place] [address] Dr. Ling Martin LIPASEon 07-05-2022 Lipase [Catalytic activity/Vol] 69.0 U/L Critically low 73.0-393.0 [facility] Comment on above: Performed By: #### C BC #### [facility] [address] [place] [address] Dr. Ling Martin LIVER PROFILEon 07-05-2022 Albumin [Mass/Vol] 3.9 g/dL Normal 3.4-5.0 [facility] Comment on above: Performed By: #### C BC #### [facility] [address] [place] [address] Dr. Ling Martin Albumin/Globulin [Mass ratio] 1.1 {ratio} Normal [facility] Comment on above: Performed By: #### C BC #### [facility] [address] [place] [address] Dr. Ling Martin ALP [Catalytic activity/Vol] 119 U/L Critically high 46-116 [facility] Comment on above: Performed By: #### C BC #### [facility] [address] [place] [address] Dr. Ling Martin ALT [Catalytic activity/Vol] 38 U/L Normal 14-59 [facility] Comment on above: Performed By: #### C BC #### [facility] [address] [place] [address] Dr. Ling Martin AST [Catalytic activity/Vol] 22 U/L Normal 15-37 [facility] Comment on above: Performed By: #### C BC #### [facility] [address] [place] [address] Dr. Ling Martin BILI, CONJUGATED 0.1 mg/dL Normal 0.0-0.2 [facility] Comment on above: Performed By: #### C BC #### [facility] [address] [place] [address] Dr. Ling Martin Bilirubin [Mass/Vol] 0.3 mg/dL Normal 0.2-1.0 [facility] Comment on above: Performed By: #### C BC #### [facility] [address] [place] [address] Dr. Ling Martin Globulin (S) [Mass/Vol] 3.6 g/dL Normal [facility] Comment on above: Performed By: #### C BC #### [facility] [address] [place] [address] Dr. Ling Martin Protein [Mass/Vol] 7.5 g/dL Normal 6.4-8.2 [facility] Comment on above: Performed By: #### C BC #### [facility] [address] [address] [address] Ling Martin POINT OF CARE GLUCOSEon 06-09 Glucose [Mass/Vol] 107 mg/dL Critically high 74-106 [facility] Comment on above: Performed By: #### P OCGLUC #### [facility] [address] [place] [address] Dr. Ling Martin PROF CHEM 8 (BAS METB)on Anion gap [Moles/Vol] 13.0 mmol/L Normal [facility] Comment on above: Performed By: #### C BC #### [facility] [address] [place] [address] Dr. Ling Martin Calcium [Mass/Vol] 8.7 mg/dL Normal 8.5-10.1 [facility] Comment on above: Performed By: #### C BC #### [facility] [address] [place] [address] Dr. Ling Martin Chloride [Moles/Vol] 106 mmol/L Normal 98-107 [facility] Comment on above: Performed By: #### C BC #### [facility] [address] [place] [address] Dr. Ling Martin CO2 [Moles/Vol] 24.2 mmol/L Normal 21.0-32.0 [facility] Comment on above: Performed By: #### C BC #### [facility] [address] [place] [address] Dr. Ling Martin Creatinine [Mass/Vol] 1.02 mg/dL Normal 0.55-1.02 [facility] Comment on above: Performed By: #### C BC #### [facility] [address] [place] [address] Dr. Ling Martin EGFR-AF KUWAITI >60 Normal >=60 [facility] Comment on above: Performed By: #### C BC #### [facility] [address] [place] [address] Dr. Ling Martin EGFR-NON AF [place]I 58 mL/min/1.73m2 Critically low >=60 [facility] Comment on above: Performed By: #### C BC #### [facility] [address] [place] [address] Dr. Ling Martin Glucose [Mass/Vol] 101 mg/dL Normal 74-106 [facility] Comment on above: Performed By: #### C BC #### [facility] [address] [place] [address] Dr. Ling Martin Potassium [Moles/Vol] 4.2 mmol/L Normal 3.5-5.1 [facility] Comment on above: Performed By: #### C BC #### [facility] [address] [place] [address] Dr. Ling Martin Sodium [Moles/Vol] 139 mmol/L Normal 136-145 [facility] Comment on above: Performed By: #### C BC #### [facility] [address] [place] [address] Dr. Ling Martin Urea nitrogen [Mass/Vol] 17.0 mg/dL Normal 7.0-18.0 [facility] Comment on above: Performed By: #### C BC #### [facility] [address] [place] [address] Dr. Ling Martin Urea nitrogen/Creatinine [Mass ratio] 16.7 mg/mg Normal [facility] Comment on above: Performed By: #### C BC #### [facility] [address] [place] [address] Dr. Ling Martin URINE MICROSCOPIC ONLYon BACTERIA MODERATE Abnormal NONE SEEN [facility] Comment on above: Performed By: #### E MICHELER UMICRO #### [facility] [address] [place] [address] Dr. Ling Martin Bacteria identified Cx Nom (U) INDICATED Normal [facility] Comment on above: Performed By: #### E RUR, UMICRO #### [facility] [address] [place] [address] Dr. Ling Martin CAST NONE SEEN Normal NONE SEEN [facility] Comment on above: Performed By: #### E RUR UMICRO #### [facility] [address] [address] [address] Ling Martin Crystals LM Nom (Urine sed) NONE SEEN Normal NONE SEEN [facility] Comment on above: Performed By: #### Yelitza WHITTAKER UMICRO #### [facility] [address] [address] [address] Ling Martin Epithelial cells LM Ql (Urine sed) MODERATE Abnormal NONE SEEN /RARE [facility] Comment on above: Performed By: #### Yelitza WHITTAKER UMICRO #### [facility] [address] [address] [address] Ling Martin MUCOUS NONE SEEN Normal NONE SEEN [facility] Comment on above: Performed By: #### Yelitza WHITTAKER UMICRO #### [facility] [address] [place] [address] Dr. Ling Martin RBC 0-2 Normal 0-2 [facility] Comment on above: Performed By: #### Yelitza WHITTAKER UMICRO #### [facility] [address] [place] [address] Dr. Ling Martin WBC 2-5 Abnormal NONE SEEN [facility] Comment on above: Performed By: #### Yelitza WHITTAKER UMICRO #### [facility] [address] [place] [address] Dr. Ling Martin CORTISOLon 06-25-2022 Cortisol 6.7 ug/dL Normal 6.2-19.4 [facility] Comment on above: Result Comment: Satish sosa Note: The reference interval and flagging for this test is for an AM collection. If this is a PM collection please use: Cortisol PM: 2.3-11.9 Performed By: #### Yelitza WHITTAKER UMICRO #### [facility] [address] [place] [address] Dr. Ling Martin ECHO LIMITED STUDYon 023 ECHO LIMITED STUDY Patient: NIALL MORFIN Exam Date: 06/24/2022 : 1975 Gender:F Ordering : DR FARHAT PINEDA . Admission #: [id number] Family : Order #: [id number] CLICK HERE TO VIEW EXAM ECHOCARDIOGRAM REPORT PROCEDURE: CARDIO PULMONARY ECHO LIMITED STUDY INDICATIONS: Abnormal blood chemistry, shortness of breath COMPARISON: None. DESCRIPTION: Limited ECHOCARDIOGRAM Real-time transthoracic echocardiography with 2D and M-mode performed. QUALITY: Technical quality was good. LEFT VENTRICLE: Normal chamber size. Normal left ventricular wall thickness. Global left ventricular systolic function is normal. LV EF: Visual estimation of left ventricular ejection fraction is 60-65% DIASTOLIC: ATRIAL SEPTUM: LEFT ATRIUM: Mild dilatation. RIGHT ATRIUM: Normal chamber size. RIGHT VENTRICLE: Normal chamber size. Normal right ventricular systolic function. TRICUSPID VALVE: Normal mobility and thickness. MITRAL VALVE: Normal mobility and thickness. AORTIC VALVE: Normal trileaflet appearance. Normal leaflet mobility. AORTIC ROOT: Normal diameter and appearance. The ascending aorta is normal in size, measuring 2.9 cm. PULMONIC VALVE: Not well visualized. PERICARDIUM: No evidence of pericardial effusion. IVC: Collapses with inspirations. Normal size. PLEURA: CONCLUSION: 1. Normal ventricular systolic function. LVEF is 60 to 65%. 2. No pericardial effusion. 3. Limited study performed with no Doppler interrogation as requested. Adult Echocardiography Procedure Report Left Ventricle LVEDD (3.7 - 5.6 cm): 4.47 cm LVESD (2.2 - 4.0 cm): 2.96 cm LVIVS thickness (0.6 - 1.2 cm): 0.77 cm LVPW thickness (0.5 - 1.0 cm): 0.81 cm LVOT Diameter 1.99 cm Left Ventricular Ejection Fraction: 60-65 % Left Atrium LA Volume Index (2D A2C): 74.85 ml, 74.85 ml Left Atrium Systolic Dimension: 3.47 cm Mitral Valve Right Ventricle RV Internal Diastolic Dimension: 3.47 cm Aorta AO Root Diam: 2.79 cm Ascending Ao Diam: 2.89 cm Aortic Valve Tricuspid Valve Pulmonic Valve Right Atrium Right Atrium Systolic Pressure: 40.62 ml, 40.62 ml Dictated by: Yoan Flynn M.D. on 06/24/2022 at 19:29 Approved by: Yoan Flynn M.D. on 06/24/2022 at 19:31 Normal [facility] CNOVon 06-23-2022 CNOV Office Visit (ENDONR ) -- ESME MORFIN ([id number]) 1975 F Date Time Provider Department 06/23/22 10:30 AM BIPIN NINA During your visit today, we recorded the following information about you: Pulse Blood pressure Weight Height 72/minute 119/82 102.1 kg 1.549 m Bipin Nina APRN.DRILL PRESS HAND 06/23/2022 11:45 AM Signed Endocrinology Follow-up Subjective History of Present Illness Esme Morfin is a 46 year old female who presents today for follow up of T2DM and hypoglycemia. 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 Last seen by endocrinology 10/25/2020 (Dr. Leavitt). Started wearing CGM 4 days ago Having a lot of lows lately - feeling of dizziness, lightheaded, blurred vision, sweaty Checked with regular meter - confirmed low of 49 ,mg/dL Notices lows with carb intake Lows generally follow a meal - with more carbs Gained 29-30 lbs over last 9 months Recent A1c Results: Hemoglobin A1C (%) Date Value 06/16/2022 6.2 01/21/2022 6.3 03/17/2021 6.0 12/27/2020 6.2 08/13/2020 6.1 DM Complications: Microvascular: none Macrovascular: none Current DM Regimen: None currently BGM: - Frequency of Monitorin or more times daily - Reports hypoglycemia. Lows confirmed with fingerstick - Able to self treat: Yes - BG Values: Summary of Personal CGM Findings: Dates worn: 06/10/2022 - 06/23/2022 CGM Type: nba 3 CGM recording is adequate for interpretation. Worn 28% of time. Average BG 108 Time in range (BG 70-180 mg/dL) 76% Coefficient of variation 40.4% Time below range (BG < 70 mg/dL) 15% Hypoglycemia notes: Post prandial, nocturnal noted Time above range (BG > 180 mg/dL) 9% Hyperglycemia notes: Very brief post prandial Physical Activity: Modest physical activity Walking started up recently Diet: portion control, grazes throughout day Meals per day: 2 Snacks per day: grazing throughout day Doing ok with diet - drinking regular small dr pepper pop a few cans a day Prior DM Medications: - Health Maintenance: Health Maintenance Topics Topic Date Due DIABETIC FOOT EXAM Never done Medications, Past History, Allergies Current Medications 06/23/2022 OTHER Medication Dosage Pharm Subclass ALPRAZolam (XANAX) 0.25 mg tablet Take 0.5 tablets by mouth as needed. Antianxiety Agent - Benzodiazepines BIPAP Lifetime supplies for BiPAP 12/8 cm H20 including mask, heated tubing, humidity, filters. Dx: G47.33 [employer], [employer] Superset cholecalciferol (VITAMIN D-3) 5,000 unit tab 2 tabs po q am for 90 days Vitamins - D Derivatives CPAP/BIPAP/OTHER Type .CPAPSettings into a note to see current settings/supplies/DME information. [employer] Superset cyanocobalamin 1,000 mcg/mL inject 1 milliliter intramuscularly ONCE A MONTH as instructed Vitamins - B-12, Cyanocobalamin and derivatives diclofenac (VOLTAREN ARTHRITIS PAIN) 1 % topical gel Apply 4 g to affected area four times daily. Dermatological - NSAID Single Agents magnesium oxide (MAG-OX) 400 mg (241.3 mg magnesium) tablet Take 1 tablet by mouth once daily. Antacid - Magnesium meclizine (ANTIVERT) 25 mg tab Take 0.5-1 tablets by mouth three times daily as needed (for dizziness.). Antiemetic - Antihistamines pantoprazole DR (PROTONIX) 40 mg tablet Take 1 tablet by mouth as needed. Gastric Acid Secretion Waistline Joiner Overlock - Proton Pump Inhibitors (PPIs) promethazine (PHENERGAN) 25 mg tablet Take 25 mg by mouth four times daily as needed. Antihistamine - 1st Generation - Phenothiazines Syringe with Needle, Safety (EASY TOUCH SHEATHLOCK SYRG-NDL) 3 mL 25 gauge x 1 syrg Weekly methotrexate injections, monthly vit b12 injections as instructed Medical Supplies and DME - [place] and Syringes thiamine (VITAMIN B-1) 100 mg tablet Take 1 tablet by mouth once daily. Vitamins - B-1, Thiamine and Derivatives zaleplon (SONATA) 5 mg capsule Take 1 capsule if unable to fall back to sleep after waking during night as long as 4 hours remain for sleep. Do not start before May 28, 2022. 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 Normal [facility] PAP TESTon 06-18-2022 Case Report Gynecologic Cytology Report Case: [id number] Authorizing Provider: Eleanor Kenny DO Collected: 06/11/2022 12:41 PM Ordering Location: CB/Gynecology Received: 06/12/2022 05:13 AM First Screen: Chiara Salguero, CT, ASCP Rescreen: Kathy Otoole, ASHLEY, ASCP Specimen: Pap Test, ThinPrep, Cervix [facility] Clinical History Routine Exam [facility] Cytology Interpretation Negative [facility] FINAL DIAGNOSIS A - Cervix Satisfactory for interpretation Negative for Intraepithelial lesion or malignancy. [facility] HPV Reflex Auto HPV [facility] LMP 04/06/2022 [facility] Pap Disclaimer The Pap Smear is a screening test for cervical cancer. False negative results occur with all screening tests, emphasizing the need for rescreening at recommended intervals, and clinical correlation. [facility] PAP Fork Lift Technician Comment This specimen has be en analyzed by the ThinPrep Imaging System, an automated imaging and review system, which assists the laboratory in evaluating cells on ThinPrep Pap tests. Following automated imaging, selected rojas from every slide are reviewed by a machine fancy stitcher. [facility] Performing Lab Technical component, machine fancy stitcher screening performed at [facility], [address], [facility] [address] CLIA# [id number] Diagnostic interpretation performed at [facility], [address] [place] [address] CLIA# [id number] Gas Plant Specialist: Moshe Craft M.D. [facility] C peptide Yuriy-Jose 06-16 C peptide [Mass/Vol] 2.20 ng/mL Normal 0.81-3.85 [facility] Comment on above: Order Comment: Speci men Type: BLOOD SPECIMEN Ordering Facility: [facility] Address: [address] [place] [address] Performed By: #### 1 989-3 #### [facility] CLIA [id number] [address] [place] [address] [place] CBC W Auto Differential pane l (Bld)on 06-16-2022 Basophils (Bld) [#/Vol] 0.04 10*3/uL Normal <0.11 [facility] Comment on above: Order Comment: Speci men Type: BLOOD SPECIMEN Ordering Facility: [facility] Address: [address] [place] [address] Performed By: #### 1 989-3 #### [facility] CLIA [id number] [address] [place] [address] [place] Basophils/100 WBC (Bld) 0.5 % Normal [facility] Comment on above: Order Comment: Speci men Type: BLOOD SPECIMEN Ordering Facility: [facility] Address: [address] [place] [address] Performed By: #### 1 989-3 #### [facility] CLIA [id number] [address] [place] [address] [place] Differential cell count method Nom (Bld) Auto Normal [facility] Comment on above: Order Comment: Speci men Type: BLOOD SPECIMEN Ordering Facility: [facility] Address: [address] [place] [address] Performed By: #### 1 989-3 #### [facility] CLIA [id number] [address] [place] [address] [place] Eosinophils (Bld) [#/Vol] 0.16 10*3/uL Normal <0.46 [facility] Comment on above: Order Comment: Speci men Type: BLOOD SPECIMEN Ordering Facility: [facility] Address: [address] [place] [address] Performed By: #### 1 989-3 #### [facility] CLIA [id number] [address] [place] [address] [place] Eosinophils/100 WBC (Bld) 2.1 % Normal [facility] Comment on above: Order Comment: Speci men Type: BLOOD SPECIMEN Ordering Facility: [facility] Address: [address] [place] [address] Performed By: #### 1 989-3 #### [facility] CLIA [id number] [address] [place] [address] [place] Erythrocyte distribution width (RBC) [Ratio] 13.4 % Normal 11.5-15.0 [facility] Comment on above: Order Comment: Speci men Type: BLOOD SPECIMEN Ordering Facility: [facility] Address: [address] [place] [address] Performed By: #### 1 989-3 #### [facility] CLIA [id number] [address] [place] [address] [place] Hematocrit (Bld) [Volume fraction] 43.2 % Normal 36.0-46.0 [facility] Comment on above: Order Comment: Speci men Type: BLOOD SPECIMEN Ordering Facility: [facility] Address: [address] [place] [address] Performed By: #### 1 989-3 #### [facility] CLIA [id number] [address] [place] [address] [place] Hemoglobin (Bld) [Mass/Vol] 13.4 g/dL Normal 11.5-15.5 [facility] Comment on above: Order Comment: Speci men Type: BLOOD SPECIMEN Ordering Facility: [facility] Address: [address] [place] [address] Performed By: #### 1 989-3 #### [facility] CLIA [id number] [address] [place] [address] [place] Immature granulocytes (Bld) [#/Vol] 0.05 10*3/uL Normal <0.10 [facility] Comment on above: Order Comment: Speci men Type: BLOOD SPECIMEN Ordering Facility: [facility] Address: [address] [place] [address] Performed By: #### 1 989-3 #### [facility] CLIA [id number] [address] [place] [address] [place] Immature granulocytes/100 WBC (Bld) 0.6 % Normal [facility] Comment on above: Order Comment: Speci men Type: BLOOD SPECIMEN Ordering Facility: [facility] Address: [address] [place] [address] Performed By: #### 1 989-3 #### [facility] CLIA [id number] [address] [place] [address] [place] Lymphocytes (Bld) [#/Vol] 2.21 10*3/uL Normal 1.00-4.00 [facility] Comment on above: Order Comment: Speci men Type: BLOOD SPECIMEN Ordering Facility: [facility] Address: [address] [place] [address] Performed By: #### 1 989-3 #### [facility] CLIA [id number] [address] [place] [address] [place] Lymphocytes/100 WBC (Bld) 28.6 % Normal [facility] Comment on above: Order Comment: Speci men Type: BLOOD SPECIMEN Ordering Facility: [facility] Address: [address] [place] [address] Performed By: #### 1 989-3 #### [facility] CLIA [id number] [address] [place] [address] [place] MCH (RBC) [Entitic mass] 28.8 pg Normal 26.0-34.0 [facility] Comment on above: Order Comment: Speci men Type: BLOOD SPECIMEN Ordering Facility: [facility] Address: [address] [place] [address] Performed By: #### 1 989-3 #### [facility] CLIA [id number] [address] [place] [address] [place] MCHC (RBC) [Mass/Vol] 31.0 g/dL Normal 30.5-36.0 [facility] Comment on above: Order Comment: Speci men Type: BLOOD SPECIMEN Ordering Facility: [facility] Address: [address] [place] [address] Performed By: #### 1 989-3 #### [facility] CLIA [id number] [address] [place] [address] [place] MCV (RBC) [Entitic vol] 92.7 fL Normal 80.0-100.0 [facility] Comment on above: Order Comment: Speci men Type: BLOOD SPECIMEN Ordering Facility: [facility] Address: [address] [place] [address] Performed By: #### 1 989-3 #### [facility] CLIA [id number] [address] [place] [address] [place] Monocytes (Bld) [#/Vol] 0.59 10*3/uL Normal <0.87 [facility] Comment on above: Order Comment: Speci men Type: BLOOD SPECIMEN Ordering Facility: [facility] Address: [address] [place] [address] Performed By: #### 1 989-3 #### [facility] CLIA [id number] [address] [place] [address] [place] Monocytes/100 WBC (Bld) 7.6 % Normal [facility] Comment on above: Order Comment: Speci men Type: BLOOD SPECIMEN Ordering Facility: [facility] Address: [address] [place] [address] Performed By: #### 1 989-3 #### [facility] CLIA [id number] [address] [place] [address] [place] Neutrophils (Bld) [#/Vol] 4.67 10*3/uL Normal 1.45-7.50 [facility] Comment on above: Order Comment: Speci men Type: BLOOD SPECIMEN Ordering Facility: [facility] Address: [address] [place] [address] Performed By: #### 1 989-3 #### [facility] CLIA [id number] [address] [place] [address] [place] Neutrophils/100 WBC (Bld) 60.6 % Normal [facility] Comment on above: Order Comment: Speci men Type: BLOOD SPECIMEN Ordering Facility: [facility] Address: [address] [place] [address] Performed By: #### 1 989-3 #### [facility] CLIA [id number] [address] [place] [address] [place] Nucleated RBC (Bld) [#/Vol] 10*3/uL Normal <0.01 [facility] Comment on above: Order Comment: Speci men Type: BLOOD SPECIMEN Ordering Facility: [facility] Address: [address] [place] [address] Performed By: #### 1 989-3 #### [facility] CLIA [id number] [address] [place] [address] [place] Nucleated RBC/100 WBC (Bld) [Ratio] 0.0 /100 WBC Normal [facility] Comment on above: Order Comment: Speci men Type: BLOOD SPECIMEN Ordering Facility: [facility] Address: [address] [place] [address] Performed By: #### 1 989-3 #### [facility] CLIA [id number] [address] [place] [address] [place] Platelet mean volume (Bld) [Entitic vol] 12.0 fL Normal 9.0-12.7 [facility] Comment on above: Order Comment: Speci men Type: BLOOD SPECIMEN Ordering Facility: [facility] Address: [address] [place] [address] Performed By: #### 1 989-3 #### [facility] CLIA [id number] [address] [place] [address] [place] Platelets (Bld) [#/Vol] 217 10*3/uL Normal 150-400 [facility] Comment on above: Order Comment: Speci men Type: BLOOD SPECIMEN Ordering Facility: [facility] Address: [address] [place] [address] Performed By: #### 1 989-3 #### [facility] CLIA [id number] [address] [place] [address] [place] RBC (Bld) [#/Vol] 4.66 10*6/uL Normal 3.90-5.20 [facility] Comment on above: Order Comment: Speci men Type: BLOOD SPECIMEN Ordering Facility: [facility] Address: [address] [place] [address] Performed By: #### 1 989-3 #### [facility] CLIA [id number] [address] [place] [address] [place] WBC (Bld) [#/Vol] 7.72 10*3/uL Normal 3.70-11.00 [facility] Comment on above: Order Comment: Speci men Type: BLOOD SPECIMEN Ordering Facility: [facility] Address: [address] [place] [address] Performed By: #### 1 989-3 #### [facility] CLIA [id number] [address] [place] [address] [place] CNOVon 06-16-2022 CNOV Office Visit ([facility]) -- ESME MORFIN ([id number]) 1975 F Date Time Provider Department 06/16/22 3:30 PM LU[address] F BAR[address]ZA [facility] During your visit today, we recorded the following information about you: Pulse Blood pressure Weight 84/minute 135/77 102.9 kg Luis F Barraza APRN.DRILL PRESS HAND 06/18/2022 6:17 PM Signed [facility] [place] SECTION OF REGIONAL CARDIOLOGY OUTPATIENT VISIT DATE June 16, 2022 OUTPATIENT VISIT TYPE Established PRIMARY CARE PHYSICIAN: Farhat Pineda MD [address] [place] [address] CC: edema, palpitations Elements of this note, including HPI, ROS, Physical Exam, Assessment and Plan were copied and pasted from previous office visit notes completed within our department. Updates have been made where appropriate/noted and reflect current exam and medical decision making from date of this visit. HISTORY OF PRESENT ILLNESS: Ms. Morfin is a 46 year old female a past medical history of palpitations, mild-moderate aortic regurgitation, DM 2, GERD, micropapillary carcinoma thyroid status post surgery, TALIA, RA, chronic anemia, obesity status post bariatric surgery, anxiety diagnosed with COVID with BL pneumonia on 04/30/20. She has had two GI surgeries and a thoracic surgery for paraesophageal hernia. Has hX of TALIA and when she lost 100# following bariatric surgery, stopped using her CPAP--- is now using it again She was seen 01/07/21. At that visit she described episodes of palpitations described as intermittent pounding and skipping. She underwent ZIO monitor which showed occasional episodes of nonsustained paroxysmal SVT. Metoprolol succinate 25 mg daily was added. She is here today with symptoms of bilateral lower extremity edema that occur from the ankle to the thigh, palpitations and near syncope. She was seen by her primary care provider which is at an outside hospital. A [employer] heart monitor was recently placed and the patient is currently wearing the monitor. Also, laboratory studies were recently ordered and are in process. Her weight had been quite stable for the past year and a half however she has gained 14 pounds in the past week according to [facility] weights in synopsis. She currently denies shortness of breath, chest discomfort, orthopnea. An echocardiogram was done at her primary care provider's office in March and is detailed below. She treats her obstructive sleep apnea with CPAP and is consistent with its use. REVIEW OF SYSTEMS: GENERAL: No weakness, malaise, fevers, chills RESPIRATORY: Negative for cough, wheezing, chest pain with respiration, sputum production GI: No nausea, vomiting, diarrhea, constipation, abdominal pain, hematochezia, black tarry stools. Appetite is good NEURO: No paralysis, weakness, dizziness, loss of consciousness All other reviewed and negative other than HPI. 10 systems reviewed and are negative with the exception of pertinent positives described in HPI IMPRESSION: Encounter Diagnosis ICD-10-CM 1. PVC (premature ventricular contraction) I49.3 2. Palpitations R00.2 ECG COMPLETE 3. TALIA (obstructive sleep apnea) G47.33 4. Localized edema R60.0 PLAN AND RECOMMENDATIONS: Palpitations: Patient has had a sensation of palpitations for several years. Previous heart monitors including a 14-day ZIO monitor has shown runs of nonsustained SVT but no malignant dysrhythmias. She reports a worsening of the palpitations and is currently wearing a [employer] monitor placed by her primary care provider. I will await the results. She currently is taking no medications such as beta-blockers or calcium channel blockers. In the past, she felt that the metoprolol succinate had helped her and decrease the palpitations. Likely, this medication will need to be restarted but I will await the monitor results. ECG today shows normal sinus rhythm with a heart rate of 81 bpm. Echocardiogram reviewed and shows normal LVEF and mild zziahw-wzwhrw-kdamliqri valve regurgitation without evidence of significant structural heart disease. Continue to treat sleep apnea. Patient notes a worsening of bilateral extremity edema and a 14 pound weight gain in 1 week. Today, she has no edema, lungs are clear to auscultation Obesity noted, patient should use exercise as tolerated and a heart healthy diet. Will follow up with patient in 6 months or sooner if problems persist or worsen Luis F Barraza, RN, MSN, URBAN REDEVELOPMENT SPECIALIST-C Adult Nurse Practitioner Rowan Verma Department of Cardiovascular Medicine [facility] Heart, Vascular, Thoracic [place] [facility] PHYSICAL EXAMINATION: BP 135/77 Pulse 84 Wt 102.9 kg (226 lb 14.4 oz) LMP 04/06/2022 (more content not included)... Normal [facility] Comprehensive metabolic 2000 panelon 06-16-2022 Albumin [Mass/Vol] 4.2 g/dL Normal 3.9-4.9 [facility] Comment on above: Order Comment: Speci men Type: BLOOD SPECIMEN Ordering Facility: External Submitter Address: , , Performed By: #### 3 4454-8 #### [facility] CLIA [id number] [address] [place] [address] [place] ALP [Catalytic activity/Vol] 109 U/L Normal 34-123 [facility] Comment on above: Order Comment: Speci men Type: BLOOD SPECIMEN Ordering Facility: External Submitter Address: , , Performed By: #### 5 5454-3 #### [facility] CLIA [id number] [address] [place] [address] [place] ALT [Catalytic activity/Vol] 42 U/L High 7-38 [facility] Comment on above: Order Comment: Speci men Type: BLOOD SPECIMEN Ordering Facility: External Submitter Address: , , Performed By: #### 5 5454-3 #### [facility] CLIA [id number] [address] [place] [address] [place] Anion gap [Moles/Vol] 11 mmol/L Normal 9-18 [facility] Comment on above: Order Comment: Speci men Type: BLOOD SPECIMEN Ordering Facility: External Submitter Address: , , Performed By: #### 5 5454-3 #### [facility] CLIA [id number] [address] [place] [id number] [place] AST [Catalytic activity/Vol] 27 U/L Normal 13-35 [facility] Comment on above: Order Comment: Speci men Type: BLOOD SPECIMEN Ordering Facility: External Submitter Address: , , Performed By: #### 5 5454-3 #### [facility] CLIA [id number] [address] [place] [address] [place] Bilirubin [Mass/Vol] 0.5 mg/dL Normal 0.2-1.3 [facility] Comment on above: Order Comment: Speci men Type: BLOOD SPECIMEN Ordering Facility: External Submitter Address: , , Performed By: #### 5 5454-3 #### [facility] CLIA [id number] [address] [place] [address] [place] Calcium [Mass/Vol] 9.3 mg/dL Normal 8.5-10.2 [facility] Comment on above: Order Comment: Speci men Type: BLOOD SPECIMEN Ordering Facility: External Submitter Address: , , Performed By: #### 5 5454-3 #### [facility] CLIA [id number] [address] [place] [address] [place] Chloride [Moles/Vol] 105 mmol/L Normal 97-105 [facility] Comment on above: Order Comment: Speci men Type: BLOOD SPECIMEN Ordering Facility: External Submitter Address: , , Performed By: #### 5 5454-3 #### [facility] CLIA [id number] [address] [place], [place] [address] [place] CO2 [Moles/Vol] 24 mmol/L Normal 22-30 [facility] Comment on above: Order Comment: Speci men Type: BLOOD SPECIMEN Ordering Facility: External Submitter Address: , , Performed By: #### 5 5454-3 #### [facility] CLIA [id number] [address] [place], [place] [id number] [place] Creatinine [Mass/Vol] 0.95 mg/dL Normal 0.58-0.96 [facility] Comment on above: Order Comment: Speci men Type: BLOOD SPECIMEN Ordering Facility: External Submitter Address: , , Performed By: #### 5 5454-3 #### [facility] CLIA [id number] [address] [place] [id number] [place] ESTIMATED GLOMERULAR FILTRATION RATE 74 mL/min/1.73m??? Normal >=60 [facility] Comment on above: Order Comment: Panfilo horne Type: BLOOD SPECIMEN Ordering Facility: External Submitter Address: , , Result Comment: Floresita mated Glomerular Filtration Rate (eGFR) is calculated using the 2020 CKD-EPI creatinine equation. This equation utilizes serum creatinine, sex, and age as parameters. The creatinine assay has traceable calibration to isotope dilution-mass spectrometry. Refer to KDIGO guidelines for clinical interpretation. In patients with unstable renal function, e.g. those with acute kidney injury, the eGFR may not accurately reflect actual GFR. Performed By: #### 5 5454-3 #### [facility] CLIA [id number] [address] [place] [address] [place] Glucose [Mass/Vol] 96 mg/dL Normal 74-99 [facility] Comment on above: Order Comment: Panfilo horne Type: BLOOD SPECIMEN Ordering Facility: External Submitter Address: , , Result Comment: The [place] Diabetes Association (ADA) provides guidance for cutoff values for fasting glucose and random glucose. The ADA defines fasting as no caloric intake for at least 8 hours. Fasting plasma glucose results between 100 to 125 mg/dL indicate increased risk for diabetes (prediabetes). Fasting plasma glucose results greater than or equal to 126 mg/dL meet the criteria for diagnosis of diabetes. In the absence of unequivocal hyperglycemia, results should be confirmed by repeat testing. In a patient with classic symptoms of hyperglycemia or hyperglycemic crisis, random plasma glucose results greater than or equal to 200 mg/dL meet the criteria for diagnosis of diabetes. Reference: Standards of Medical Care in Diabetes 2016, [place] Diabetes Association. Diabetes Care. 2016.39(Suppl 1). Performed By: #### 5 5454-3 #### [facility] CLIA [id number] [address] [place] [id number] [place] Potassium [Moles/Vol] 3.9 mmol/L Normal 3.7-5.1 [facility] Comment on above: Order Comment: Edilbertoi coleen Type: BLOOD SPECIMEN Ordering Facility: External Submitter Address: , , Performed By: #### 5 5454-3 #### [facility] CLIA [id number] [address] [place] [address] [place] Protein [Mass/Vol] 6.8 g/dL Normal 6.3-8.0 [facility] Comment on above: Order Comment: Speci men Type: BLOOD SPECIMEN Ordering Facility: External Submitter Address: , , Performed By: #### 5 5454-3 #### [facility] CLIA [id number] [address] [place] [address] [place] Sodium [Moles/Vol] 140 mmol/L Normal 136-144 [facility] Comment on above: Order Comment: Speci men Type: BLOOD SPECIMEN Ordering Facility: External Submitter Address: , , Performed By: #### 5 5454-3 #### [facility] CLIA [id number] [address] [place] [address] [place] Urea nitrogen [Mass/Vol] 7 mg/dL Normal 7-21 [facility] Comment on above: Order Comment: Edilbertoi men Type: BLOOD SPECIMEN Ordering Facility: External Submitter Address: , , Performed By: #### 5 5454-3 #### [facility] IA [id number] [address] [place] [address] [place] GIO51yd 06-16-2022 ECG01 Ventricular Rate : 8 1 BPM Atrial Rate : 81 BPM P-R Interval : 118 ms QRS Duration : 90 ms Q-T Interval : 404 ms QTC Calculation(Bazett) : 469 ms Calculated P [place] : 3 degrees Calculated R [place] : -51 degrees Calculated T [place] : 70 degrees NORMAL SINUS RHYTHM LEFT ANTERIOR FASCICULAR BLOCK ABNORMAL ECG Confirmed by NATHAN MARIE M.D. ([id number]) on 06/17/2022 10:48:37 AM NAME : ESME MORFIN PID : [id number] : 1975 Gender : Female Race : ORD : Procedure Date : Jun 16 2022 15:32:43 Edit Date : Jun 17 2022 10:48:39 Diagnosis: NORMAL SINUS RHYTHM LEFT ANTERIOR FASCICULAR BLOCK ABNORMAL ECG Confirmed by NATHAN MARIE M.D. ([id number]) on 06/17/2022 10:48:37 AM Test Reason : Location : 168 : [facility] Overread By : NATHAN MARIE M.D. Edited By : NATHAN MARIE M.D. Referred By : WILLIE, Acquired by : , Normal [facility] HPV W/GENOTYPE THIN PREPon 0 06-16-2022 HPV 16 Ag Ql (Unsp spec) Negative Negative for HPV DNA high risk type 16 by PCR [facility] HPV 18 Ag Ql (Unsp spec) Negative Negative for HPV DNA high risk type 18 by PCR [facility] HPV 31+33+35+39+45+51+52+5 6+58+59+66+68 DNA AIXA+probe Ql (Cvx) Negative for HPV DNA high risk types: 31,33,35,39,45,51,52,56,58 ,59,66,68 by PCR. Negative for HPV DNA high risk types: 31,33,35,39 ,45,51,52,5 6,58,59,66, 68 by PCR. [facility] HbA1c (Bld)on 06-16-2022 Average glucose Estimated from glycated hemoglobin (Bld) [Mass/Vol] 131 mg/dL Normal [facility] Comment on above: Order Comment: Speci men Type: BLOOD SPECIMEN Ordering Facility: External Submitter Address: , , Result Comment: eAG: (Estimated average glucose) is a calculated value from HgbA1c and is new accounts banking representative of the average blood glucose level in the last 2-3 month period. Performed By: #### 5 5454-3 #### [facility] CLIA [id number] [address] [place] [address] [place] HbA1c (Bld) [Mass fraction] 6.2 % High 4.3-5.6 [facility] Comment on above: Order Comment: Speci men Type: BLOOD SPECIMEN Ordering Facility: External Submitter Address: , , Result Comment: [place] Diabetes Association guidelines indicate that patients with HgbA1c in the range 5.7-6.4% are at increased risk for development of diabetes, and intervention by lifestyle modification may be beneficial. HgbA1c greater or equal to 6.5% is considered diagnostic of diabetes. Performed By: #### 5 5454-3 #### [facility] CLIA [id number] [address] [place] [address] [place] Insulin SerPl-aCncon 023 Insulin Qn 5.8 u[IU]/mL Normal 3.0-25.0 [facility] Comment on above: Order Comment: Panfilo horne Type: BLOOD SPECIMEN Ordering Facility: [facility] Address: [address] [place] [address] Performed By: #### 1 989-3 #### [facility] CLIA [id number] [address] [place] [address] [place] Magnesium SerPl-mCncon 06-16 Magnesium [Mass/Vol] 1.9 mg/dL Normal 1.7-2.3 [facility] Comment on above: Order Comment: Panfilo horne Type: BLOOD SPECIMEN Ordering Facility: External Submitter Address: , , Performed By: #### 3 016-3, 98907-5 #### [facility] CLIA [id number] [address] [place] [address] [place] NT-proBNP SerPl-mCncon 06-16 Natriuretic peptide.B prohormone N-Terminal [Mass/Vol] 331 pg/mL High <125 [facility] Comment on above: Order Comment: Panfilo horne Type: BLOOD SPECIMEN Ordering Facility: External Submitter Address: , , Performed By: #### 5 5454-3 #### [facility] CLIA [id number] [address] [place] [address] [place] T3 SerPl-mCncon 06-16-2022 T3 [Mass/Vol] 129 ng/dL Normal 79-165 [facility] Comment on above: Order Comment: Speci coleen Type: BLOOD SPECIMEN Ordering Facility: External Submitter Address: , , Performed By: #### 5 5454-3 #### [facility] CLIA [id number] [address] [place] [address] [place] T4 SerPl-mCncon 06-16-2022 T4 [Mass/Vol] 6.7 ug/dL Normal 5.5-10.2 [facility] Comment on above: Order Comment: Speci men Type: BLOOD SPECIMEN Ordering Facility: External Submitter Address: , , Performed By: #### 5 5454-3 #### [facility] IA [id number] [address] [place] [address] [place] THYROGLOBULIN ABon Thyroglobulin Ab Qn 3.5 [IU]/mL Normal <4.0 [facility] Comment on above: Order Comment: Edilbertoi coleen Type: BLOOD SPECIMEN Ordering Facility: External Submitter Address: , , Result Comment: The Thyroglobulin Antibody test was performed using the [employer] D[employer] paramagnetic particle chemiluminescent immunoassay method. Results obtained with different assay methods or kits cannot be used interchangeably. Performed By: #### 5 5454-3 #### [facility] [place] [id number] [address] [place] [address] OF [place] THYROID PEROXIDASE ANTIBODY BLOODon 06-16-2022 TPO Ab Qn 216.6 [IU]/mL High <5.6 [facility] Comment on above: Order Comment: Panfilo horne Type: BLOOD SPECIMEN Ordering Facility: External Submitter Address: , , Result Comment: Thyr oid Peroxidase Antibody test is used as an aid in diagnosis of autoimmune thyroid disease. Clinical correlation is required. Performed By: #### 3 016-3, 72868-9 #### [facility] CLIA [id number] [address] [place] [address] [place] TSH SerPl-aCncon 06-16-2022 TSH Qn 2.690 m[IU]/L Normal 0.270-4.200 [facility] Comment on above: Order Comment: Speci men Type: BLOOD SPECIMEN Ordering Facility: External Submitter Address: , , Result Comment: If t he patient is , TSH reference range varies by gestational period: First Trimester (weeks 9-12): 0.180-2.990 mIU/L Second Trimester: 0.110-3.980 mIU/L Third Trimester: 0.480-4.710 mIU/L Rohit Mares et al. A Practical Approach for the Verifications and Determination of Site- and Trimester-Specific Reference Intervals for Thyroid Function tests in . Thyroid, 2019:29:3:412-420. Hany E, et al. 2017 Guidelines of the [place] Thyroid Association for the Diagnosis and Management of Thyroid Disease during and the . Thyroid, 2017:27:3:315-389. Performed By: #### 3 016-3, 84774-1 #### [facility] CLIA [id number] [address] [place] [address] OF [facility] CNPAndressa 06-15-2022 CNPN Telephone (ENDOLN) -- ESME MORFIN ([id number]) 1975 F Date Time Provider Department 06/15/22 LIZZIE LEAVITT ENDOLN During your visit today, we recorded the following information about you: Sharee Lebron Pss 06/15/2022 9:48 AM Signed Patient called stating that she is having low blood sugars that is running in the 40s. She currently is scheduled for an appointment virtually on 06/23/2022 with another provider just so she can be seen. She is on hold for nurse triage. She can be reached at [phone]. Please advise. Gina Holman RN 06/15/2022 10:55 AM Signed Pt transferred to this technical proposal writer for triage Hx of bypass surgery Per pss last vv 9-2021 f/u in one year endo no show Asking how often to check bs daily d/t below Reports frequency urination - up all night for the past month Water retention and feels d/t low bs ( Advised to reach out to pcp) seeing card 5-9 5-3 bs (52) 530 pm just ate an hour before dizzy and felt like going to pass out sweaty With 52 bs reading ate chocolate and later bs 55 ( still not well) 1.5 hours later bs 88 went to bed d/t exhausted' 5-4 felt ok did not check sugar 5-6 ate 3 pm felt fine Dizzy 440 pm 457 pm bs 49 ate cake 69 recheck drank pop and chocalate covered cherries 40 minutes later 117 bs at 8 pm very tired and went to bed 5-7 319 pm bs 138 felt fine - ate Jittery at 429 pm 263 at 518 pm 63 Ate chocolate 7 pm 100 bs ( felt better) Tired went to bed 1120 pm bs 93 still tired and hungry Has a snack ( spaghetti 2-3 bites ) 5-8 1236 am bs 204 felt better but still tired 150 am bs 93 felt ok 841 am bs 121 felt ok ( ate spaghetti 3-4 bites) 946 am 206 felt fine Feels ok now bs 174 5-16 appt noted vv Advised sooner appt [facility] Dr Leavitt appt Pt on wait list Pt was advised to carry life savers ( 5 pieces ) or 3 peppermint candies to resolved now sugars Advised er if feeling like going to pass out Shasha back if s/s worsen / return Call transferred to endo scheduling to assist with appt scheduling Lizzie Leavitt MD 06/17/2022 8:33 AM Signed Would ask her to continue checking BG if feeling possible symptoms of hypoglycemia, and to keep records as she has been. Could try to get sooner appointment with virtual visit. Elijah Degroot MA 06/17/2022 12:01 PM Signed Attempted to reach patient regarding message below. Unable to leave a message as voicemail box is full. Will try to call back again. Brooke Hermosillo LPN 06/23/2022 10:50 AM Signed Attempted to reach patient, Voicemail is full. Patient is currently at appointment with Endo [employer]RB[employer]OP[employer] SPECIALIST Allergies As of Date: 06/15/2022 Noted Allergy Reaction Contrast Dye (IODINE) 11/04/2020 14 - Other: See Comments MOBIC (MELOXICAM) 08/05/2016 5 - Intolerance Comments: GI bleed with transfusion MOTRIN (IBUPROFEN) 11/06/2015 14 - Other: See Comments Comments: GI Bleed NSAIDS (NON-STEROIDAL ANTI-INFLAM*03/05/2016 16 - Unknown PREDNISONE 08/05/2016 15 - Contraindication-Medical Parnell* Comments: GI bleed SCOPOLAMINE 12/01/2016 1 - Mental Status Change Comments: Paranoia, confusion, hallucination Date Reviewed: 06/11/2022 Reviewed by: Opal Og OD - Fully Assessed Reason for Visit: Low Blood Sugars [Other] Prescriptions as of 06/23/2022 - zaleplon (SONATA) 5 mg capsule Take 1 capsule if unable to fall back to sleep after waking during night as long as 4 hours remain for sleep. Do not start before May 28, 2022. - cholecalciferol (VITAMIN D-3) 5,000 unit tab 2 tabs po q am for 90 days - diclofenac (VOLTAREN ARTHRITIS PAIN) 1 % topical gel Apply 4 g to affected area four times daily. - CPAP/BIPAP/OTHER Type .CPAPSettings into a note to see current settings/supplies/DME information. - ALPRAZolam (XANAX) 0.25 mg tablet Take 0.5 tablets by mouth as needed. - meclizine (ANTIVERT) 25 mg tab Take 0.5-1 tablets by mouth three times daily as needed (for dizziness.). - BIPAP Lifetime supplies for BiPAP 12/8 cm H20 including mask, heated tubing, humidity, filters. Dx: G47.33 - magnesium oxide (MAG-OX) 400 mg (241.3 mg magnesium) tablet Take 1 tablet by mouth once daily. - promethazine (PHENERGAN) 25 mg tablet Take 25 mg by mouth four times daily as needed. - thiamine (VITAMIN B-1) 100 mg tablet Take 1 tablet by mouth once daily. - cyanocobalamin 1,000 mcg/mL inject 1 milliliter intramuscularly ONCE A MONTH as instructed - pantoprazole DR (PROTONIX) 40 mg tablet Take 1 tablet by mouth as needed. - Syringe with Needle, Safety (EASY TOUCH SHEATHLOCK SYRG-NDL) 3 mL 25 gauge x 1 syrg Weekly methotrexate injections, monthly vit b12 injections as instructed Meds Comments as of 08/15/2020: Would like refill of promethazine as of 08/15/2020 Problem List As Of Date 06/15/2022 Noted Resolved CHR LYMPHOCYT THYROIDIT [E06.3] 06/17/2006 DYSMETABOLIC SYNDROME X (more content not included)... Normal [facility] CNOVon 06-11-2022 CNOV Office Visit (OBGYCC ) -- ESME MORFIN ([id number]) 1975 F Date Time Provider Department 06/11/22 11:00 AM ELEANOR KENNY OBGY During your visit today, we recorded the following information about you: Pulse Blood pressure Weight Height 81/minute 123/71 96.2 kg 1.549 m Last Period 04/06/22 Eleanor Kenny DO 06/21/2022 11:38 PM Signed CC: Annual Exam: Esme Morfin is a 46 year old 3 Para 3, LMP presents for well woman examination Family History: Denies uterine/ovarian/cervical/v aginal or vulvar cancers. MAunt Breast Cancer (?cervical cancer too) Patient is identified by name and birthdate: Yes Medications were reviewed and verified. Her health maintenance record has been reviewed and has been updated: Yes Is patient having any pain? 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: No Problem with urinary or bowel incontinence: No Menarche 9 years old Periods regular every 28 days Cramps: No Clots: No Cycles: regular Menopausal symptoms: No Contraceptive history: Yes 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 Mitral and aortic valve regurgitation 09/08/2009 Aortic insufficiency EF 60% DR Zuniga -- judged to be non-surgical and mild Nephrolithiasis TALIA (obstructive sleep apnea) 2016 on CPAP and BiPAP Postoperative malabsorption 03/04/2017 Rheumatoid arthritis (HCC) was treated with mtx plaquenil in past Thyroiditis, unspecified Thyroiditis Viral pneumonia, unspecified Pneumonia Vomiting of fecal matter PAST SURGICAL HISTORY Procedure Laterality Date ANES HRNA REPAIR UPR ABD TABDL RPR DIPHRG HRNA open 2001 COLONOSCOPY FLX DX W/COLLJ SPEC WHEN PFRMD Colonoscopy COLPO OF CERVIX WBIOPSYECC 04/04/2018 ESOPHAGOGASTRODUODENOSCOPY TRANSORAL DIAGNOSTIC EGD multiple GASTRIC BYPASS HX 2017 LAPAROSCOPY SURG CHOLECYSTECTOMY Cholecystectomy, lap LIG/TRNSXJ FLP TUBE ABDL/VAG APPR UNI/BI 1996 PAST SURGICAL HISTORY OF cardiac cath REPAIR PARAESOPHAGEAL HERNIA THYROIDECTOMY TOTAL/COMPLETE 02-04-2010 ? patial/incomplete Current Outpatient Medications Medication Sig zaleplon (SONATA) 5 mg capsule Take 1 capsule if unable to fall back to sleep after waking during night as long as 4 hours remain for sleep. Do not start before May 28, 2022. cholecalciferol (VITAMIN D-3) 5,000 unit tab 2 tabs po q am for 90 days diclofenac (VOLTAREN ARTHRITIS PAIN) 1 % topical gel Apply 4 g to affected area four times daily. CPAP/BIPAP/OTHER Type .CPAPSettings into a note to see current settings/supplies/DME information. ALPRAZolam (XANAX) 0.25 mg tablet Take 0.5 tablets by mouth as needed. meclizine (ANTIVERT) 25 mg tab Take 0.5-1 tablets by mouth three times daily as needed (for dizziness.). BIPAP Lifetime supplies for BiPAP 12/8 cm H20 including mask, heated tubing, humidity, filters. Dx: G47.33 magnesium oxide (MAG-OX) 400 mg (241.3 mg magnesium) tablet Take 1 tablet by mouth once daily. promethazine (PHENERGAN) 25 mg tablet Take 25 mg by mouth four times daily as needed. thiamine (VITAMIN B-1) 100 mg tablet Take 1 tablet by mouth once daily. cyanocobalamin 1,000 mcg/mL inject 1 milliliter intramuscularly ONCE A MONTH as instructed pantoprazole DR (PROTONIX) 40 mg tablet Take 1 tablet by mouth as needed. Syringe with Needle, Safety (EASY TOUCH SHEATHLOCK SYRG-NDL) 3 mL 25 gauge x 1 syrg Weekly methotrexate injections, monthly vit b12 injections as instructed Current Facility-Administered Medications Medication Dose Route Frequency tropicamide 1 % 1 Drop (MYDRIACYL) 1 Drop BOTH EYES As Directed PHENYLephrine 2.5 % 1 Drop (AK-DILATE, OTIS-SYNEPHRINE) 1 Drop BOTH EYES As Directed fluorescein-benoxinate 0.25-0.4 % 1 Drop (FLURESS) 1 Drop BOTH EYES As Directed proparacaine 0.5 % 1 Drop (ALCAINE) 1 Drop BOTH EYES As Directed ALLERGIES Allergen Reactions Contrast Dye [Iodin* Other: See Comments Mobic [Meloxicam] Intolerance GI bleed with transfusion Motrin [Ibuprofen] Other: See Comments GI Bleed Nsaids (Non-Steroid* Unknown Prednisone Contraindication-Medical Surgical GI bleed Scopolamine Mental Status Change Paranoia, confusion, hallucination Social History Social History Narrative Not on file Esme Morfin [id number] The above information has been reviewed and confirmed with the patient. Hist (more content not included)... Normal [facility] HPV W/GENOTYPE THIN PREPon 0 06-11-2022 HPV 16 Ag Ql (Unsp spec) Negative Normal Negative for HPV DNA high risk type 16 by PCR [facility] Comment on above: Order Comment: Speci men Type: BLOOD SPECIMEN Ordering Facility: External Submitter Address: , , Performed By: #### 5 5454-3 #### [facility] CLIA [id number] [address] [place] [address] [place] HPV 18 Ag Ql (Unsp spec) Negative Normal Negative for HPV DNA high risk type 18 by PCR [facility] Comment on above: Order Comment: Speci men Type: BLOOD SPECIMEN Ordering Facility: External Submitter Address: , , Performed By: #### 5 5454-3 #### [facility] CLIA [id number] [facility] [place] [address] [place] HPV 31+33+35+39+45+51+52+5 6+58+59+66+68 DNA AIXA+probe Ql (Cvx) Negative for HPV DNA high risk types: 31,33,35,39,45,51,52,56,58 ,59,66,68 by PCR. Normal Negative for HPV DNA high risk types: 31,33,35,39 ,45,51,52,5 6,58,59,66, 68 by PCR. [facility] Comment on above: Order Comment: Speci men Type: BLOOD SPECIMEN Ordering Facility: External Submitter Address: , , Performed By: #### 5 5454-3 #### [facility] CLIA [id number] [address] [place] [address] [place] PAP TESTon 06-11-2022 CASE REPORT Normal [facility] Comment on above: Order Comment: Speci men Type: FLUID SPECIMENOrdering Facility: [facility] Address: [address] [place] [address] Result Comment: Gyne cologic Cytology Report Case: [id number] Authorizing Provider: Eleanor Kenny DO Collected: 06/11/2022 12:41 PM Ordering Location: CB/Gynecology Received: 06/12/2022 05:13 AM First Screen: Chiara aSlguero, CT, ASCP Rescreen: Kathy Otoole, CT, ASCP Specimen: Pap Test, ThinPrep, Cervix Performed By: #### L [id number] ####[facility] [id number] [place] [address] [place] CLINICAL HISTORY, CYTOLOGY, INTERNET DATABASE SPECIALIST Routine Exam Normal [facility] Comment on above: Order Comment: Speci men Type: FLUID SPECIMENOrdering Facility: [facility] Address: [address] [place], [place] [id number] Result Comment: h/o CIN1 Performed By: #### L [id number] ####[facility] [id number] [place] [address] [place] CYTOLOGY INTERPRETATION PAP Normal [facility] Comment on above: Order Comment: Speci men Type: FLUID SPECIMENOrdering Facility: [facility] Address: [address] [address] Result Comment: Nega tive for Intraepithelial lesion or malignancy. Performed By: #### L [id number] ####[facility] [id number] [place] [address] [place] FINAL DIAGNOSIS A - Cervix Normal [facility] Comment on above: Order Comment: Speci men Type: FLUID SPECIMENOrdering Facility: [facility] Address: [address] [place] [address] Result Comment: Sati sfactory for interpretation Negative for Intraepithelial lesion or malignancy. Performed By: #### L [id number] ####[facility] [id number] [place] [address] [place] FINAL PERFORMING LAB Normal [facility] Comment on above: Order Comment: Speci men Type: FLUID SPECIMENOrdering Facility: [facility] Address: [address] [address] Result Comment: Tech nical component, machine fancy stitcher screening performed at [facility], [address] [id number] CLIA# [id number] Diagnostic interpretation performed at [facility], [address] [id number] CLIA# [id number] Gas Plant Specialist: Moshe Craft M.D. Performed By: #### L [id number] ####[facility] [id number] [place] [address] [place] HPV REFLEX Auto HPV Normal [facility] Comment on above: Order Comment: Speci men Type: FLUID SPECIMENOrdering Facility: [facility] Address: [address] [place] [address] Performed By: #### L [id number] ####[facility]CLIA [id number] [place] [address] [place] LMP 04/06/2022 Normal [facility] Comment on above: Order Comment: Speci men Type: FLUID SPECIMENOrdering Facility: [facility] Address: [address] [place] [address] Performed By: #### L [id number] ####[facility]IA [id number] [place] [address] [place] PAP DISCLAIMER COMMENT The Pap Smear is a screening test for cervical cancer. False negative results occur with all screening tests, emphasizing the need for rescreening at recommended intervals, and clinical correlation. Normal [facility] Comment on above: Order Comment: Speci men Type: FLUID SPECIMENOrdering Facility: [facility] Address: [address] [place] [address] Performed By: #### L [id number] ####[facility]IA [id number] [place] [address] [place] PAP CONSULTING UTILITY FORESTER COMMENT This specimen has be en analyzed by the ThinPrep Imaging System, an automated imaging and review system, which assists the laboratory in evaluating cells on ThinPrep Pap tests. Following automated imaging, selected rojas from every slide are reviewed by a machine fancy stitcher. Normal [facility] Comment on above: Order Comment: Speci men Type: FLUID SPECIMENOrdering Facility: [facility] Address: [address] [place], [place] [address] Performed By: #### L [id number] ####[facility]IA [id number] [place] [address] [place] UA DIP, URINE (POC)on 2022 BILIRUBIN UA (POCT) Negative Negative [facility] CLARITY UA (POCT) Clear [facility] COLOR UA (POCT) Dark yellow [facility] GLUCOSE UA (POCT) Negative Negative mg/dL [facility] HEMOGLOBIN/BLOOD UA (POCT) Negative Negative [facility] KETONE UA (POCT) Negative Negative mg/dL [facility] LEUKOCYTES UA (POCT) Negative Negative [facility] NITRITE UA (POCT) Negative Negative [facility] PH UA (POCT) 5.5 4.5 - 8.0 [facility] Protein Ql (U) Negative Negative mg/dL [facility] SPECIFIC GRAVITY UA (POCT) 1.025 1.005 - 1.030 [facility] UROBILINOGEN UA (POCT) 2.0 E.U./dL Abnormal Maame l E.U./dL [facility] US GWEN DOP LEG BILon 023 US GWEN DOP LEG MAICOL EXAM: US GWEN DOP LEG MAICOL HISTORY: Localized edema with bilateral swelling the thighs. There is also focal swelling in the right mid ruiz region for the past week. COMPARISON: Right side 08/27/2020 TECHNIQUE: Multiple sonographic images of the deep veins of both lower extremities were obtained, supplemented with Doppler FINDINGS: The deep veins of both lower extremities are well visualized from the groin to the mid calf. No filling defect is identified to indicate a thrombus. There is normal compression augmentation to flow bilaterally. Along the anterior right shunt there is an ill-defined heterogeneous area of soft tissue prominence, without a well-defined cystic or solid mass. Similar findings were noted in the prior study from 08/27/2020. IMPRESSION: There is no direct or indirect evidence of deep vein thrombosis in the lower extremities at this time. Similar findings in the deep veins were noted in the prior study on the right side from 08/27/2020. Electronically authenticated by: FACUNDO DE LUNA Date: 2022-06-08 18:40 Normal [facility] ECHOCARDIO M/2D COMPLETEon 0 04-02-2022 ECHOCARDIO M/2D COMPLETE Patient: ESME MORFIN Exam Date: 04/02/2022 : 1975 Gender:F Ordering : DR FARHAT PINEDA . Admission #: [id number] Family : Order #: [id number] CLICK HERE TO VIEW EXAM ECHOCARDIOGRAM REPORT PROCEDURE: CARDIO PULMONARY ECHOCARDIO M/2D COMP INDICATIONS: Palpitations, lightheaded COMPARISON: None. DESCRIPTION: COMPLETE ECHOCARDIOGRAM Real-time transthoracic echocardiography with 2D, M-mode, spectral and color flow Doppler performed. QUALITY: Technical quality was good. LEFT VENTRICLE: Normal chamber size. Borderline left ventricular hypertrophy. Global left ventricular systolic function is normal. LV EF: Calculated left ventricular ejection fraction is 58%. DIASTOLIC: Normal diastolic function. ATRIAL SEPTUM: LEFT ATRIUM: Mild dilatation. RIGHT ATRIUM: Normal chamber size. RIGHT VENTRICLE: Normal chamber size. Normal right ventricular systolic function. TRICUSPID VALVE: Normal mobility and thickness. No stenosis with mild regurgitation. Mild pulmonary hypertension. RVSP 35 mmHg. MITRAL VALVE: Normal mobility and thickness. No mitral valve prolapse. No evidence of mitral valve stenosis. There is no mitral annular calcification. Mild mitral regurgitation. AORTIC VALVE: Normal trileaflet appearance. No visible sclerosis. Normal leaflet mobility. No evidence of aortic valve stenosis. Mild aortic regurgitation. AORTIC ROOT: Normal diameter and appearance. PULMONIC VALVE: Normal thickness and mobility. No stenosis. Trivial regurgitation. PERICARDIUM: No evidence of pericardial effusion. IVC: Collapses with inspirations. Normal size. PLEURA: CONCLUSION: 1. Normal ventricular systolic function. LVEF is 55 to 60%. 2. Normal diastolic function. 3. Mild mitral, aortic and tricuspid regurgitation. 4. Mildly elevated right-sided pressures. 5. No pericardial effusion. Adult Echocardiography Procedure Report Left Ventricle LVEDD (3.7 - 5.6 cm): 4.61 cm LVESD (2.2 - 4.0 cm): 3.18 cm LVIVS thickness (0.6 - 1.2 cm): 1.19 cm LVPW thickness (0.5 - 1.0 cm): 0.85 cm e': 0.15 m/s E - e': 7.17 LVOT Max Gradient: 4.42 mm[Hg], 3.81 mm[Hg] Peak Velocity (LVOT): 1.05 m/s, 0.98 m/s Mean Velocity (LVOT): 0.72 m/s, 0.67 m/s LVOT Diameter 2.08 cm Left Ventricular Ejection Fraction: 55-60 % Left Atrium LA Volume Index (2D A2C): 78.10 ml, 78.10 ml Left Atrium Systolic Dimension: 3.85 cm Mitral Valve MV E to A Ratio: 1.35 Mitral Valve A-Wave Peak Velocity: 0.80 m/s Mitral Valve E-Wave Peak Velocity: 1.08 m/s Right Ventricle RV Internal Diastolic Dimension: 3.70 cm Aorta AO Root Diam: 3.01 cm Ascending Ao Diam: 2.45 cm Aortic Valve AoV Area (Peak Chris): 2.70 cm2, 2.81 cm2 AoV Area (VTI): 2.74 cm2, 2.77 cm2 Deceleration [place]: 1.50 m/s2 Pressure Half-Time: 803.45 ms Peak Velocity(Antegrade Flow): 1.27 m/s Peak Gradient(Antegrade Flow): 6.46 mm[Hg] Mean Velocity(Antegrade Flow): 0.88 m/s Mean Gradient(Antegrade Flow): 3.47 mm[Hg] Velocity Time Integral: 31.81 cm Tricuspid Valve Peak Velocity (Regurgitant Flow): 2.53 m/s, 2.66 m/s, 2.84 m/s Peak Velocity: 0.75 m/s Pulmonic Valve Mean Gradient: 1.66 mm[Hg] Mean Velocity: 0.60 m/s Peak Velocity: 0.89 m/s, 0.94 m/s Peak Gradient: 3.14 mm[Hg], 3.50 mm[Hg] Right Atrium Right Atrium Systolic Pressure: 42.10 ml, 42.10 ml Dictated by: Yoan Flynn M.D. on 04/03/2022 at 14:48 Approved by: Yoan Flynn M.D. on 04/03/2022 at 14:52 Normal [facility] INSULINon 04-01-2022 Insulin 12.5 uIU/mL Normal 2.6-24.9 [facility] Comment on above: Performed By: #### E RUR, UMICRO #### [facility] [address] [address] [address] Ling Martin OCC BLD IMMUNO SCREENon 03-12 OCCULT BLOOD Negative Normal NEGATIVE [facility] Comment on above: Performed By: #### P OCGLUC #### [facility] [address] [address] [address] Ling Martin CBC AUTO DIFFon 03-31-2022 BASO # 0.1 103/ul Normal 0.0-0.1 [facility] Comment on above: Performed By: #### P OCGLUC #### [facility] [address] [place] [address] Dr. Ling Martin Basophils/100 WBC (Bld) 0.7 % Normal 0.2-2.0 [facility] Comment on above: Performed By: #### P OCGLUC #### [facility] [address] [place] [address] Dr. Ling Martin EO # 0.3 103/ul Normal 0.0-0.7 [facility] Comment on above: Performed By: #### P OCGLUC #### [facility] [address] [place] [address] Dr. Ling Martin Eosinophils/100 WBC (Bld) 4.3 % Normal 0.9-7.0 [facility] Comment on above: Performed By: #### P OCGLUC #### [facility] [address] [place] [address] Dr. Ling Martin Erythrocyte distribution width (RBC) [Ratio] 13.0 % Normal 11.0-15.0 [facility] [facility] Comment on above: Performed By: #### P OCGLUC #### [facility] [address] [place] [address] Dr. Lign Martin Hematocrit (Bld) [Volume fraction] 39.6 % Normal 36.0-48.0 [facility] Comment on above: Performed By: #### P OCGLUC #### [facility] [address] [place] [address] Dr. Ling Martin Hemoglobin (Bld) [Mass/Vol] 12.9 g/dL Normal 12.0-16.0 [facility] Comment on above: Performed By: #### P OCGLUC #### [facility] [address] [place] [address] Dr. Ling Martin IG # 0.03 10e3/ul Normal 0.00-0.03 [facility] Comment on above: Performed By: #### P OCGLUC #### [facility] [address] [place] [address] Dr. Ling Martin IG % 0.4 % Normal 0.0-0.5 [facility] Comment on above: Performed By: #### P OCGLUC #### [facility] [address] [place] [address] Dr. Ling Martin LYMPH # 2.2 103/ul Normal 1.2-3.8 [facility] Comment on above: Performed By: #### P OCGLUC #### [facility] [address] [place] [address] Dr. Ling Martin Lymphocytes/100 WBC (Bld) 30.6 % Normal 20.5-60.0 [facility] Comment on above: Performed By: #### P OCGLUC #### [facility] [address] [place] [address] Dr. Ling Martin MANUAL DIFF REQ NO Normal [facility] Comment on above: Performed By: #### P OCGLUC #### [facility] [address] [place] [address] Dr. Ling Martin MCH (RBC) [Entitic mass] 28.8 pg Normal 26.7-34.0 [facility] Comment on above: Performed By: #### P OCGLUC #### [facility] [address] [place] [address] Dr. Ling Martin MCHC (RBC) [Mass/Vol] 32.6 g/dL Normal 29.9-35.2 [facility] Comment on above: Performed By: #### P OCGLUC #### [facility] [address] [place] [address] Dr. Ling Martin MCV (RBC) [Entitic vol] 88.4 fL Normal 81.0-99.0 [facility] Comment on above: Performed By: #### P OCGLUC #### [facility] [address] [place] [address] Dr. Ling Martin MONO # 0.5 103/ul Normal 0.3-0.8 [facility] Comment on above: Performed By: #### P OCGLUC #### [facility] [address] [place] [address] Dr. Ling Martin Monocytes/100 WBC (Bld) 7.1 % Normal 1.7-12.0 [facility] Comment on above: Performed By: #### P OCGLUC #### [facility] [address] [place] [address] Dr. Ling Martin NEUT # 4.0 103/ul Normal 1.4-6.5 [facility] Comment on above: Performed By: #### P OCGLUC #### [facility] [address] [place] [address] Dr. Ling Martin Neutrophils/100 WBC (Bld) 56.9 % Normal 43.0-75.0 [facility] Comment on above: Performed By: #### P OCGLUC #### [facility] [address] [place] [address] Dr. Ling Martin Platelet mean volume (Bld) [Entitic vol] 11.3 fL Normal 9.5-13.5 [facility] Comment on above: Performed By: #### P OCGLUC #### [facility] [address] [place] [address] Dr. Ling Martin PLT 226 103/ul Normal 150-450 [facility] Comment on above: Performed By: #### P OCGLUC #### [facility] [address] [place] [address] Dr. Ling Martin RBC 4.48 106/ul Normal 4.20-5.40 [facility] Comment on above: Performed By: #### P OCGLUC #### [facility] [address] [place] [address] Dr. Ling Martin WBC 7.0 103/ul Normal 4.0-11.0 [facility] Comment on above: Performed By: #### P OCGLUC #### [facility] [address] [place] [address] Dr. Ling Martin FREE THYROXINE INDEX T7on FTI 2.16 Normal 1.30-4.50 [facility] Comment on above: Performed By: #### C MP #### [facility] [address] [place] [address] Dr. Ling Martin T3U 30.0 % Normal 30.0-39.0 [facility] Comment on above: Performed By: #### C MP #### [facility] [address] [address] [address] Ling Martin T4 [Mass/Vol] 7.20 ug/dL Normal 4.80-13.90 [facility] Comment on above: Performed By: #### C MP #### [facility] [address] [address] [address] Ling Martin GLYCOHEMOGLOBIN A1Con 2022 ADA RECOMMENDATION SEE BELOW Normal [facility] Comment on above: Result Comment: ADA RECOMMENDED LIMIT 4.0 - 6.0 ADA THERAPEUTIC TARGET < 7.0 ACTION SUGGESTED > 7.0 Performed By: #### A 1C #### [facility] [address] [place] [address] Dr. Ling Martin Glucose [Mass/Vol] 134 mg/dL Normal [facility] Comment on above: Performed By: #### A 1C #### [facility] [address] [place] [address] Dr. Ling Martin HbA1c (Bld) [Mass fraction] 6.3 % Critically high 4.5-6.2 [facility] Comment on above: Performed By: #### A 1C #### [facility] [address] [place] [address] Dr. Ling Martin IRONon 03-31-2022 Iron [Mass/Vol] 86.0 ug/dL Normal 50.0-170.0 [facility] Comment on above: Performed By: #### E JAISON WHITTAKER #### [facility] [address] [place] [address] Dr. Ling Martin LIPID PROFILEon 03-31-2022 CHOL-HDL RATIO NORM SEE BELOW Normal [facility] Comment on above: Result Comment: 3.3 - 4.4 LOW RISK 4.4 - 7.1 AVERAGE RISK 7.1 - 11.0 MODERATE RISK >11.0 HIGH RISK Performed By: #### C MP #### [facility] [address] [place] [address] Dr. Ling Martin Cholesterol [Mass/Vol] 176 mg/dL Normal <=200 [facility] Comment on above: Performed By: #### C MP #### [facility] [address] [address] [address] Ling Martin Cholesterol in HDL [Mass/Vol] 53 mg/dL Normal 40-60 [facility] Comment on above: Performed By: #### C MP #### [facility] [address] [address] [address] Ling Martin Cholesterol in LDL [Mass/Vol] 99.8 mg/dL Normal [facility] Comment on above: Performed By: #### C MP #### [facility] [address] [address] [address] Ling Martin Cholesterol.total/Chol esterol in HDL [Mass ratio] 3.3 {ratio} Normal [facility] Comment on above: Performed By: #### C MP #### [facility] [address] [address] [address] Ling Martin HDL NORMAL > or = 60 mg/dl - LO W CARDIOVASCULAR RISK <40 mg/dl - HIGH CARDIOVASCULAR RISK Normal [facility] Comment on above: Performed By: #### C MP #### [facility] [address] [address] [address] Ling Martin LDL CALC NORMAL SEE BELOW Normal [facility] Comment on above: Result Comment: <100 mg/dl OPTIMAL 100 - 129 mg/dl NEAR OR ABOVE OPTIMAL 130 - 159 mg/dl BORDERLINE HIGH 160 - 189 mg/dl HIGH >190 mg/dl VERY HIGH Performed By: #### C MP #### [facility] [address] [address] [address] Ling Martin Triglyceride [Mass/Vol] 116 mg/dL Normal <=150 [facility] Comment on above: Performed By: #### C MP #### [facility] [address] [address] [address] Ling Martin VLDL CALC 23.2 mg/dL Normal [facility] Comment on above: Performed By: #### C MP #### [facility] [address] [address] [address] Ling Martin PROF 14(COMP METB)on 02-21-2 023 Albumin [Mass/Vol] 3.9 g/dL Normal 3.4-5.0 [facility] Comment on above: Performed By: #### C MP #### [facility] [address] [place] [address] Dr. Ling Martin Albumin/Globulin [Mass ratio] 1.1 {ratio} Normal [facility] Comment on above: Performed By: #### C MP #### [facility] [address] [place] [address] Dr. Ling Martin ALP [Catalytic activity/Vol] 168 U/L Critically high 46-116 [facility] Comment on above: Performed By: #### C MP #### [facility] [address] [place] [address] Dr. Ling Martin ALT [Catalytic activity/Vol] 57 U/L Normal 14-59 [facility] Comment on above: Performed By: #### C MP #### [facility] [address] [place] [address] Dr. Ling Martin Anion gap [Moles/Vol] 7.7 mmol/L Normal [facility] Comment on above: Performed By: #### C MP #### [facility] [address] [place] [address] Dr. Ling Martin AST [Catalytic activity/Vol] 25 U/L Normal 15-37 [facility] Comment on above: Performed By: #### C MP #### [facility] [address] [place] [address] Dr. Ling Martin Bilirubin [Mass/Vol] 0.4 mg/dL Normal 0.2-1.0 [facility] Comment on above: Performed By: #### C MP #### [facility] [address] [place] [address] Dr. Ling Martin Calcium [Mass/Vol] 9.1 mg/dL Normal 8.5-10.1 [facility] Comment on above: Performed By: #### C MP #### [facility] [address] [place] [address] Dr. Ling Martin Chloride [Moles/Vol] 107 mmol/L Normal 98-107 [facility] Comment on above: Performed By: #### C MP #### [facility] [address] [address] [address] Ling Martin CO2 [Moles/Vol] 29.3 mmol/L Normal 21.0-32.0 [facility] Comment on above: Performed By: #### C MP #### [facility] [address] [address] [address] Ling Martin Creatinine [Mass/Vol] 1.01 mg/dL Normal 0.55-1.02 [facility] Comment on above: Performed By: #### C MP #### [facility] [address] [address] [address] Ling Martin EGFR-AF [place] >60 Normal >=60 [facility] Comment on above: Performed By: #### C MP #### [facility] [address] [place] [address] Dr. Ling Martin EGFR-NON AF [place] 59 mL/min/1.73m2 Critically low >=60 [facility] Comment on above: Performed By: #### C MP #### [facility] [address] [address] [address] Ling Martin Globulin (S) [Mass/Vol] 3.5 g/dL Normal [facility] Comment on above: Performed By: #### C MP #### [facility] [address] [address] [address] Ling Martin Glucose [Mass/Vol] 81 mg/dL Normal 74-106 [facility] Comment on above: Performed By: #### C MP #### [facility] [address] [address] [address] Ling Martin Potassium [Moles/Vol] 4.0 mmol/L Normal 3.5-5.1 [facility] Comment on above: Performed By: #### C MP #### [facility] [address] [address] [address] Ling Martin Protein [Mass/Vol] 7.4 g/dL Normal 6.4-8.2 [facility] Comment on above: Performed By: #### C MP #### [facility] [address] [place] [address] Dr. Ling Martin Sodium [Moles/Vol] 140 mmol/L Normal 136-145 [facility] Comment on above: Performed By: #### C MP #### [facility] [address] [place] [address] Dr. Ling Martin Urea nitrogen [Mass/Vol] 16.0 mg/dL Normal 7.0-18.0 [facility] Comment on above: Performed By: #### C MP #### [facility] [address] [place] [address] Dr. Ling Martin Urea nitrogen/Creatinine [Mass ratio] 15.8 mg/mg Normal [facility] Comment on above: Performed By: #### C MP #### [facility] [address] [place] [address] Dr. Ling Martin TSHon 03-31-2022 TSH 1.930 uIU/mL Normal 0.358-3.740 [facility] Comment on above: Performed By: #### C MP #### [facility] [address] [place] [address] Dr. Ling Martin VITAMIN D 25 OHon 03-31-2022 VIT D 25-OH 37.7 ng/mL Normal [facility] Comment on above: Performed By: #### JAISON BETTS #### [facility] [address] [place] [address] Dr. Ling Martin VIT D RANGES SEE BELOW Normal [facility] Comment on above: Result Comment: <20 ng/mL Vit D deficient 20 - <30 ng/mL Vit D insufficient 30 - 100 ng/mL Vit D sufficient >100 ng/mL Potential Toxicity Performed By: #### JAISON BETTS #### [facility] [address] [place] [address] Dr. Ling Martin [facility]on SARS-CoV-2 (COVID-19) RNA AIXA+probe Ql (Unsp spec) Not detected Normal NOT DETECTED [facility] Comment on above: Result Comment: When diagnostic testing is negative, the possibility of a false negative should be considered in the context of a patient's recent exposures and the presence of clinical signs and symptoms consistent with SARS-CoV-2. This test is not yet approved or cleared by the [place] FDA. When there are no FDA-approved or cleared tests available, and other criteria are met, FDA can make tests available under an emergency access mechanism called an Emergency Use Authorization (EUA). The EUA for this test is supported by the [place] of Health and Human Service's declaration that circumstances exist to justify the emergency use of in vitro diagnostics for the detection and/or diagnosis of the virus that causes COVID-19. This EUA will remain in effect for the duration of the COVID-19 declaration justifying emergency of IVDs, unless it is terminated or revoked by the FDA (after which the test may no longer be used). Performed By: #### C [facility] #### [facility] [address] [place] [address] Dr. Ling Martin INFLUENZA A AND B AGon 02-16 INFLUBNEG SEE BELOW Normal [facility] Comment on above: Result Comment: Nega tive for Flu B protein antigen. Infection due to Flu B cannot be ruled out. Flu B antigen in the sample may be below the detection limit of the test. Performed By: #### JAISON BETTS #### [facility] [address] [place] [address] Dr. Ling Martin INFLUENZA A AG Positive Abnormal NEGATIVE SEE COMMENT [facility] Comment on above: Result Comment: Prev iously reported as: NEGATIVE SEE COMMENT On 02/16/2022 14:32 By NS6 Performed By: #### CONNIE BETTSRO #### [facility] [address] [place] [address] Dr. Ling Martin INFLUENZA B AG Negative Normal NEGATIVE SEE COMMENT [facility] Comment on above: Performed By: #### JAISON BETTS #### [facility] [address] [place] [address] Dr. Ling Martin INFLUPOS SEE BELOW Normal [facility] Comment on above: Result Comment: NOTE : Live attenuated influenzae vaccine viruses can cause a positive result for a rapid influenza diagnostic test if administered up to 7 days prior to rapid testing. Previously reported as: (blank) On 02/16/2022 14:32 By NS6 Performed By: #### JAISON BETTS #### [facility] [address] [place] [address] Dr. Ling Martin RSVon 02-16-2022 RSV AG Negative Normal NEGATIVE [facility] Comment on above: Performed By: #### JAISON BETTS #### [facility] [address] [place] [address] Dr. Ling Martin CBC AUTO DIFFon 01-24-2022 BASO # 0.0 103/ul Normal 0.0-0.1 [facility] Comment on above: Performed By: #### C BC #### [facility] [address] [place] [address] Dr. Ling Martin Basophils/100 WBC (Bld) 0.4 % Normal 0.2-2.0 [facility] Comment on above: Performed By: #### C BC #### [facility] [address] [place] [address] Dr. Ling Martin EO # 0.1 103/ul Normal 0.0-0.7 [facility] Comment on above: Performed By: #### C BC #### [facility] [address] [place] [address] Dr. Ling Mratin Eosinophils/100 WBC (Bld) 1.2 % Normal 0.9-7.0 [facility] Comment on above: Performed By: #### C BC #### [facility] [address] [place] [address] Dr. Ling Martin Erythrocyte distribution width (RBC) [Ratio] 13.0 % Normal 11.0-15.0 [facility] Comment on above: Performed By: #### C BC #### [facility] [address] [place] [address] Dr. Ling Martin Hematocrit (Bld) [Volume fraction] 40.6 % Normal 36.0-48.0 [facility] Comment on above: Performed By: #### C BC #### [facility] [address] [place] [address] Dr. Ling Martin Hemoglobin (Bld) [Mass/Vol] 13.4 g/dL Normal 12.0-16.0 [facility] Comment on above: Performed By: #### C BC #### [facility] [address] [place] [address] Dr. Ling Martin IG # 0.05 10e3/ul Critically high 0.00-0.03 [facility] Comment on above: Performed By: #### C BC #### [facility] [address] [place] [address] Dr. Ling Martin IG % 0.5 % Normal 0.0-0.5 [facility] Comment on above: Performed By: #### C BC #### [facility] [address] [place] [address] Dr. Ling Martin LYMPH # 1.9 103/ul Normal 1.2-3.8 [facility] Comment on above: Performed By: #### C BC #### [facility] [address] [place] [address] Dr. Ling Martin Lymphocytes/100 WBC (Bld) 20.0 % Critically low 20.5-60.0 [facility] Comment on above: Performed By: #### C BC #### [facility] [address] [place] [address] Dr. Ling Maritn MANUAL DIFF REQ NO Normal [facility] Comment on above: Performed By: #### C BC #### [facility] [address] [place] [address] Dr. Ling Martin MCH (RBC) [Entitic mass] 29.1 pg Normal 26.7-34.0 [facility] Comment on above: Performed By: #### C BC #### [facility] [address] [place] [address] Dr. Ling Martin MCHC (RBC) [Mass/Vol] 33.0 g/dL Normal 29.9-35.2 [facility] Comment on above: Performed By: #### C BC #### [facility] [address] [place] [address] Dr. Ling Martin MCV (RBC) [Entitic vol] 88.1 fL Normal 81.0-99.0 [facility] Comment on above: Performed By: #### C BC #### [facility] [address] [place] [address] Dr. Ling Martin MONO # 0.5 103/ul Normal 0.3-0.8 [facility] Comment on above: Performed By: #### C BC #### [facility] [address] [place] [address] Dr. Ling Martin Monocytes/100 WBC (Bld) 5.5 % Normal 1.7-12.0 [facility] Comment on above: Performed By: #### C BC #### [facility] [address] [place] [address] Dr. Ling Martin NEUT # 6.8 103/ul Critically high 1.4-6.5 [facility] Comment on above: Performed By: #### C BC #### [facility] [address] [place] [address] Dr. Ling Martin Neutrophils/100 WBC (Bld) 72.4 % Normal 43.0-75.0 [facility] Comment on above: Performed By: #### C BC #### [facility] [address] [place] [address] Dr. Ling Martin Platelet mean volume (Bld) [Entitic vol] 10.9 fL Normal 9.5-13.5 [facility] Comment on above: Performed By: #### C BC #### [facility] [address] [place] [address] Dr. Ling Martin PLT 208 103/ul Normal 150-450 [facility] Comment on above: Performed By: #### C BC #### [facility] [address] [place] [address] Dr. Ling Martin RBC 4.61 106/ul Normal 4.20-5.40 [facility] Comment on above: Performed By: #### C BC #### [facility] [address] [place] [address] Dr. Ling Martin WBC 9.4 103/ul Normal 4.0-11.0 [facility] Comment on above: Performed By: #### C BC #### [facility] [address] [place] [address] Dr. Ling Martin Covid-19 PCR ([facility])on 01-08 SARS-CoV-2 (COVID-19) RNA AIXA+probe Ql (Unsp spec) Not detected Normal NOT DETECTED [facility] Comment on above: Result Comment: This test is not yet approved or cleared by the [place] FDA. When there are no FDA-approved or cleared tests available, and other criteria are met, FDA can make tests available under an emergency access mechanism called an Emergency Use Authorization (EUA). The EUA for this test is supported by the [place] of Health and Human Service's (HHS's) declaration that circumstances exist to justify the emergency use of in vitro diagnostics for the detection and/or diagnosis of the virus that causes COVID-19. This EUA will remain in effect (meaning this test can be used) for the duration of the COVID-19 declaration justifying emergency of IVDs, unless it is terminated or revoked by FDA (after which the test may no longer be used). When diagnostic testing is negative, the possibility of a false negative should be considered in the context of a patient's recent exposures and the presence of clinical signs and symptoms consistent with SARS-CoV-2. Performed By: #### E JAISON WHITTAKER #### [facility] [address] [place] [address] Dr. Ling Martin ER URINE PROFILEon Bilirubin Ql (U) Negative Normal NEGATIVE [facility] Comment on above: Performed By: #### C VDTB #### [facility] [address] [place] [address] Dr. Ling Martin Clarity (U) CLEAR Normal CLEAR [facility] Comment on above: Performed By: #### C VDTBH #### [facility] [address] [place] [address] Dr. Ling Martin Color (U) LT. YELLOW Normal YELLOW [facility] Comment on above: Performed By: #### C VDTBH #### [facility] [address] [place] [address] Dr. Ling BANEGAS A micrscopic examina tion will be performed if indicated. Normal [facility] Comment on above: Performed By: #### C VDTBH #### [facility] [address] [place] [address] Dr. Ling Martin Glucose Ql (U) Negative Normal NEGATIVE [facility] Comment on above: Performed By: #### C VDTBH #### [facility] [address] [place] [address] Dr. Ling Martin Hemoglobin Ql (U) TRACE-INTACT Abnormal NEGATIVE [facility] Comment on above: Performed By: #### C VDTBH #### [facility] [address] [place] [address] Dr. Ling Martin Ketones Ql (U) Negative Normal NEGATIVE [facility] Comment on above: Performed By: #### C VDTBH #### [facility] [address] [place] [address] Dr. Ling Martin LEUKOCYTES Negative Normal NEGATIVE [facility] Comment on above: Performed By: #### C VDTBH #### [facility] [address] [place] [address] Dr. Ling Martin Nitrite Ql (U) Negative Normal NEGATIVE [facility] Comment on above: Performed By: #### C VDTBH #### [facility] [address] [place] [address] Dr. Ling Martin pH (U) 7.5 [pH] Normal 5-9 [facility] Comment on above: Performed By: #### C VDTBH #### [facility] [address] [place] [address] Dr. Ling Martin SPEC GRAVITY <=1.005 Abnormal 1.005-<=1.0 25 [facility] Comment on above: Performed By: #### C VDTBH #### [facility] [address] [place] [address] Dr. Ling Martin UA PROTEIN Negative Normal NEGATIVE/ TRACE [facility] Comment on above: Performed By: #### C VDTBH #### [facility] [address] [place] [address] Dr. Ling Martin UR MICRO IND INDICATED Normal [facility] Comment on above: Performed By: #### C VDTBH #### [facility] [address] [place] [address] Dr. Ling Martin Urobilinogen Qn (U) 0.2 {Sera'U}/dL Normal 0.2 - 1. 0 The [facility] Comment on above: Performed By: #### C VDTBH #### [facility] [address] [place] [address] Dr. Ling Martin INFLUENZA A AND B AGon 01-24 INFLUENZA A AG Negative Normal NEGATIVE SEE COMMENT [facility] Comment on above: Performed By: #### P OCGLUC #### [facility] [address] [place] [address] Dr. Ling Martin INFLUENZA B AG Negative Normal NEGATIVE SEE COMMENT [facility] Comment on above: Performed By: #### P OCGLUC #### [facility] [address] [place] [address] Dr. Ling Martin INTERNAL CONTROLS Within Normal Limits Normal Wi thin Normal Limits [facility] Comment on above: Performed By: #### P OCGLUC #### [facility] [address] [place] [address] Dr. Ling Martin PROF 14(COMP METB)on 022 Albumin [Mass/Vol] 4.0 g/dL Normal 3.4-5.0 [facility] Comment on above: Performed By: #### C MP #### [facility] [address] [place] [address] Dr. Ling Martin Albumin/Globulin [Mass ratio] 1.1 {ratio} Normal The [facility] Comment on above: Performed By: #### C MP #### [facility] [address] [place] [address] Dr. Ling Martin ALP [Catalytic activity/Vol] 142 U/L Critically high 46-116 [facility] Comment on above: Performed By: #### C MP #### [facility] [address] [place] [address] Dr. Ling Martin ALT [Catalytic activity/Vol] 50 U/L Normal 14-59 [facility] Comment on above: Performed By: #### C MP #### [facility] [address] [address] [address] Ling Martin Anion gap [Moles/Vol] 9.3 mmol/L Normal [facility] Comment on above: Performed By: #### C MP #### [facility] [address] [address] [address] Ling Martin AST [Catalytic activity/Vol] 29 U/L Normal 15-37 [facility] Comment on above: Performed By: #### C MP #### [facility] [address] [address] [address] Ling Martin Bilirubin [Mass/Vol] 0.6 mg/dL Normal 0.2-1.0 [facility] Comment on above: Performed By: #### C MP #### [facility] [address] [address] [address] Ling Martin Calcium [Mass/Vol] 8.8 mg/dL Normal 8.5-10.1 [facility] Comment on above: Performed By: #### C MP #### [facility] [address] [address] [address] Ling Martin Chloride [Moles/Vol] 102 mmol/L Normal 98-107 [facility] Comment on above: Performed By: #### C MP #### [facility] [address] [address] [address] Ling Martin CO2 [Moles/Vol] 27.1 mmol/L Normal 21.0-32.0 [facility] Comment on above: Performed By: #### C MP #### [facility] [address] [address] [address] Ling Martin Creatinine [Mass/Vol] 1.02 mg/dL Normal 0.55-1.02 [facility] Comment on above: Performed By: #### C MP #### [facility] [address] [address] [address] Ling Martin EGFR-AF KUWAITI >60 Normal >=60 [facility] Comment on above: Performed By: #### C MP #### [facility] [address] [address] [address] Ling Martin EGFR-NON AF KU[place]I 58 mL/min/1.73m2 Critically low >=60 [facility] Comment on above: Performed By: #### C MP #### [facility] [address] [address] [address] Ling Martin Globulin (S) [Mass/Vol] 3.5 g/dL Normal [facility] Comment on above: Performed By: #### C MP #### [facility] [address] [address] [address] Ling Martin Glucose [Mass/Vol] 107 mg/dL Critically high 74-106 [facility] Comment on above: Performed By: #### C MP #### [facility] [address] [address] [address] Ling Martin Potassium [Moles/Vol] 3.4 mmol/L Critically low 3.5-5.1 [facility] Comment on above: Performed By: #### C MP #### [facility] [address] [address] [address] Ling Martin Protein [Mass/Vol] 7.5 g/dL Normal 6.4-8.2 [facility] Comment on above: Performed By: #### C MP #### [facility] [address] [address] [address] Ling Martin Sodium [Moles/Vol] 135 mmol/L Critically low 136-145 [facility] Comment on above: Performed By: #### C MP #### [facility] [address] [address] [address] Ling Martin Urea nitrogen [Mass/Vol] 10.0 mg/dL Normal 7.0-18.0 [facility] Comment on above: Performed By: #### C MP #### [facility] [address] [address] [address] Ling Martin Urea nitrogen/Creatinine [Mass ratio] 9.8 mg/mg Normal [facility] Comment on above: Performed By: #### C MP #### [facility] [address] [address] [address] Ling Martin URINE MICROSCOPIC ONLYon BACTERIA NONE SEEN Normal NONE SEEN The [facility] Comment on above: Performed By: #### C VDTBH #### [facility] [address] [place] [address] Dr. Ling Martin Bacteria identified Cx Nom (U) NOT INDICATED Normal [facility] Comment on above: Performed By: #### C VDTBH #### [facility] [address] [place] [address] Dr. Ling Martin CAST NONE SEEN Normal NONE SEEN The [facility] Comment on above: Performed By: #### C VDTBH #### [facility] [address] [place] [address] Dr. Ling Martin Crystals LM Nom (Urine sed) NONE SEEN Normal NONE SEEN The [facility] Comment on above: Performed By: #### C VDTBH #### [facility] [address] [place] [address] Dr. Ling Martin Epithelial cells LM Ql (Urine sed) RARE Normal NONE SEEN /RARE The [facility] Comment on above: Performed By: #### C VDTBH #### [facility] [address] [place] [address] Dr. Ling Martin MUCOUS NONE SEEN Normal NONE SEEN The [facility] Comment on above: Performed By: #### C VDTBH #### [facility] [address] [place] [address] Dr. Ling Martin RBC NONE SEEN Abnormal 0-2 [facility] Comment on above: Performed By: #### C VDTBH #### [facility] [address] [place] [address] Dr. Ling Martin WBC 0-2 Abnormal NONE SEEN The [facility] Comment on above: Performed By: #### C VDTBH #### [facility] [address] [place] [address] Dr. Ling Martin MRI KNEE LT WO CONon 022 MRI KNEE LT WO CON EXAM: MRI KNEE LT WO CON HISTORY: Left knee pain COMPARISON: Left knee x-rays 12/25/2021 TECHNIQUE: Multiplanar, multi sequential MRI sequences were performed FINDINGS: No fracture, dislocation, subluxation or osseous lesion. No joint effusion or popliteal cyst. The proximal tibiofibular joint is unremarkable. The superficial subcutaneous soft tissues exhibit no focal edema, hematoma or mass or cyst. No muscle edema, hematoma, atrophy or fatty infiltration. Thickening and interstitial edema of the proximal fibers of the patella tendon (sagittal 7, coronal 4 and axial 11). No tendon tear Mild adjacent edema of Hoffa's fat. The visualized extensor mechanism is unremarkable. No discrete patella tilt or subluxation. Mild interstitial edema and surface irregularities of the central cartilage of the patella apex (sagittal 10 and axial 7). No gross irregularity of the adjacent trochlear cartilage. The articular cartilage of the medial and lateral femoral condyles and tibial plateaus are unremarkable. The medial and lateral menisci along with their respective anterior and posterior root ligaments are unremarkable. Mild chronic stress-related changes of the proximal fibers of the medial collateral ligament. No tear. The anterior cruciate, posterior cruciate and lateral complex ligaments exhibit no thickening, tear or edema. IMPRESSION: 1. Morbid obesity. 2. Patella tendinopathy with no tear. 3. Grade 2 patella chondromalacia. Electronically authenticated by: DEEJAY GRAHAM Date: 2022-01-06 17:43 Normal The [facility] VIT D 25-OH LABCORPon 2021 Vitamin D, 25-Hydroxy 38.4 ng/mL Normal 30.0-100.0 The [facility] Comment on above: Result Comment: Kaylan min D deficiency has been defined by the [place] [employer] and an Endocrine Society practice guideline as a level of serum 25-OH vitamin D less than 20 ng/mL (1,2). The Endocrine Society went on to further define vitamin D insufficiency as a level between 21 and 29 ng/mL (2). 1. IOM ([place] of [employer]). 2010. Dietary reference intakes for calcium and D. [place]: The National Academies Press. 2. Joseph MF, Barrington FORD, Tequila HO, et al. Evaluation, treatment, and prevention of vitamin D deficiency: an Endocrine Society clinical practice guideline. JCEM. 2010; 96(7):1911-30. Performed By: #### P OCGLUC #### [facility] [address] [place] [address] Dr. Ling Martin CBC AUTO DIFFon 09-01-2021 BASO # 0.1 103/ul Normal 0.0-0.1 [facility] Comment on above: Performed By: #### E REMEDIOS UMICRO #### [facility] [address] [place] [address] Dr. Ling Martin Basophils/100 WBC (Bld) 0.7 % Normal 0.2-2.0 The [facility] Comment on above: Performed By: #### E RUPierce, UMICRO #### [facility] [address] [place] [address] Dr. Ling Martin EO # 0.2 103/ul Normal 0.0-0.7 [facility] Comment on above: Performed By: #### E REMEDIOS UMICRO #### [facility] [address] [place] [address] Dr. Ling Martin Eosinophils/100 WBC (Bld) 2.4 % Normal 0.9-7.0 [facility] Comment on above: Performed By: #### Yelitza WHITTAKER UMICRO #### [facility] [address] [place] [address] Dr. Ling Martin Erythrocyte distribution width (RBC) [Ratio] 12.9 % Normal 11.0-15.0 [facility] Comment on above: Performed By: #### E REMEDIOS UMICRO #### [facility] [address] [place] [address] Dr. Ling Martin Hematocrit (Bld) [Volume fraction] 41.0 % Normal 36.0-48.0 [facility] Comment on above: Performed By: #### E REMEDIOS UMICRO #### [facility] [address] [place] [address] Dr. Ling Martin Hemoglobin (Bld) [Mass/Vol] 13.3 g/dL Normal 12.0-16.0 [facility] Comment on above: Performed By: #### E RUPierce UMICRO #### [facility] [address] [place] [address] Dr. Ling Martin IG # 0.03 10e3/ul Normal 0.00-0.03 [facility] Comment on above: Performed By: #### JAISON BETTS #### [facility] [address] [place] [address] Dr. Ling Martin IG % 0.4 % Normal 0.0-0.5 [facility] Comment on above: Performed By: #### JAISON BETTS #### [facility] [address] [place] [address] Dr. Ling Martin LYMPH # 1.7 103/ul Normal 1.2-3.8 [facility] Comment on above: Performed By: #### JAISON BETTS #### [facility] [address] [place] [address] Dr. Ling Martin Lymphocytes/100 WBC (Bld) 25.1 % Normal 20.5-60.0 [facility] Comment on above: Performed By: #### JAISON BETTS #### [facility] [address] [place] [address] Dr. Ling Martin MANUAL DIFF REQ NO Normal [facility] Comment on above: Performed By: #### JAISON BETTS #### [facility] [address] [place] [address] Dr. Ling Martin MCH (RBC) [Entitic mass] 29.4 pg Normal 26.7-34.0 [facility] Comment on above: Performed By: #### CONNIE BETTSRO #### [facility] [address] [place] [address] Dr. Ling Martin MCHC (RBC) [Mass/Vol] 32.4 g/dL Normal 29.9-35.2 [facility] Comment on above: Performed By: #### CONNIE BETTSRO #### [facility] [address] [place] [address] Dr. Ling Martin MCV (RBC) [Entitic vol] 90.5 fL Normal 81.0-99.0 [facility] Comment on above: Performed By: #### CONNIE BETTSRO #### [facility] [address] [place] [address] Dr. Ling Martin MONO # 0.3 103/ul Normal 0.3-0.8 [facility] Comment on above: Performed By: #### Yelitza WHITTAKER UMICRO #### [facility] [address] [place] [address] Dr. Ling Martin Monocytes/100 WBC (Bld) 4.8 % Normal 1.7-12.0 [facility] Comment on above: Performed By: #### Yelitza WHITTAKER UMICRO #### [facility] [address] [place] [address] Dr. Ling Martin NEUT # 4.4 103/ul Normal 1.4-6.5 [facility] Comment on above: Performed By: #### Yelitza WHITTAKER UMICRO #### [facility] [address] [place] [address] Dr. Ling Martin Neutrophils/100 WBC (Bld) 66.6 % Normal 43.0-75.0 [facility] Comment on above: Performed By: #### Yelitza WHITTAKER ICRO #### [facility] [address] [place] [address] Dr. Ling Martin Platelet mean volume (Bld) [Entitic vol] 11.1 fL Normal 9.5-13.5 [facility] Comment on above: Performed By: #### Yelitza WHITTAKER ICRO #### [facility] [address] [place] [address] Dr. Ling Martin PLT 203 103/ul Normal 150-450 [facility] Comment on above: Performed By: #### Yelitza WHITTAKER UMICRO #### [facility] [address] [place] [address] Dr. Ling Martin RBC 4.53 106/ul Normal 4.20-5.40 [facility] Comment on above: Performed By: #### Yelitza WHITTAKER UMICRO #### [facility] [address] [place] [address] Dr. Ling Martin WBC 6.7 103/ul Normal 4.0-11.0 [facility] Comment on above: Performed By: #### JAISON BETTS #### [facility] [address] [place] [address] Dr. Ling Martin FREE THYROXINE INDEX T7on FTI 2.73 Normal 1.30-4.50 [facility] Comment on above: Performed By: #### C VDTBH #### [facility] [address] [place] [address] Dr. Ling Martin T3U 31.0 % Normal 30.0-39.0 [facility] Comment on above: Performed By: #### C VDTBH #### [facility] [address] [place] [address] Dr. Ling Martin T4 [Mass/Vol] 8.80 ug/dL Normal 4.80-13.90 [facility] Comment on above: Performed By: #### C VDTBH #### [facility] [address] [place] [address] Dr. Ling Martin IRONon 09-01-2021 Iron [Mass/Vol] 104.0 ug/dL Normal 50.0-170.0 [facility] Comment on above: Performed By: #### JAISON BETTS #### [facility] [address] [place] [address] Dr. Ling Martin PROF 14(COMP METB)on 022 Albumin [Mass/Vol] 4.4 g/dL Normal 3.4-5.0 [facility] Comment on above: Performed By: #### C VDTBH #### [facility] [address] [place] [address] Dr. Ling Martin Albumin/Globulin [Mass ratio] 1.4 {ratio} Normal [facility] Comment on above: Performed By: #### C VDTBH #### [facility] [address] [place] [address] Dr. Ling Martin ALP [Catalytic activity/Vol] 140 U/L Critically high 46-116 [facility] Comment on above: Performed By: #### C VDTBH #### [facility] [address] [address] [address] Ling Martin ALT [Catalytic activity/Vol] 53 U/L Normal 14-59 [facility] Comment on above: Performed By: #### C VDTBH #### [facility] [address] [place] [address] Dr. Ling Martin Anion gap [Moles/Vol] 13.1 mmol/L Normal Th e [facility] Comment on above: Performed By: #### C VDTBH #### [facility] [address] [place] [address] Dr. Ling Martin AST [Catalytic activity/Vol] 27 U/L Normal 15-37 [facility] Comment on above: Performed By: #### C VDTBH #### [facility] [address] [place] [address] Dr. Ling Martin Bilirubin [Mass/Vol] 0.6 mg/dL Normal 0.2-1.0 [facility] Comment on above: Performed By: #### C VDTBH #### [facility] [address] [place] [address] Dr. Ling Martin Calcium [Mass/Vol] 8.8 mg/dL Normal 8.5-10.1 [facility] Comment on above: Performed By: #### C VDTBH #### [facility] [address] [place] [address] Dr. Ling Martin Chloride [Moles/Vol] 106 mmol/L Normal 98-107 [facility] Comment on above: Performed By: #### C VDTBH #### [facility] [address] [place] [address] Dr. Ling Martin CO2 [Moles/Vol] 24.3 mmol/L Normal 21.0-32.0 [facility] Comment on above: Performed By: #### C VDTBH #### [facility] [address] [place] [address] Dr. Ling Martin Creatinine [Mass/Vol] 1.07 mg/dL Critically high 0.55-1.02 [facility] Comment on above: Performed By: #### C VDTBH #### [facility] [address] [address] [address] Ling Martin EGFR-AF [place]I >60 Normal >=60 [facility] Comment on above: Performed By: #### C VDTBH #### [facility] [address] [address] [address] Ling Martin EGFR-NON AF [place] 55 mL/min/1.73m2 Critically low >=60 [facility] Comment on above: Performed By: #### C VDTBH #### [facility] [address] [address] [address] Ling Martin Globulin (S) [Mass/Vol] 3.2 g/dL Normal [facility] Comment on above: Performed By: #### C VDTBH #### [facility] [address] [place] [address] Dr. Ling Martin Glucose [Mass/Vol] 136 mg/dL Critically high 74-106 [facility] Comment on above: Performed By: #### C VDTBH #### [facility] [address] [place] [address] Dr. Ling Martin Potassium [Moles/Vol] 3.4 mmol/L Critically low 3.5-5.1 [facility] Comment on above: Performed By: #### C VDTBH #### [facility] [address] [place] [address] Dr. Ling Martin Protein [Mass/Vol] 7.6 g/dL Normal 6.4-8.2 [facility] Comment on above: Performed By: #### C VDTBH #### [facility] [address] [place] [address] Dr. Ling Martin Sodium [Moles/Vol] 140 mmol/L Normal 136-145 [facility] Comment on above: Performed By: #### C VDTBH #### [facility] [address] [place] [address] Dr. Ling Martin Urea nitrogen [Mass/Vol] 17.0 mg/dL Normal 7.0-18.0 [facility] Comment on above: Performed By: #### C VDTBH #### [facility] [address] [place] [address] Dr. Ling Martin Urea nitrogen/Creatinine [Mass ratio] 15.9 mg/mg Normal [facility] Comment on above: Performed By: #### C VDTBH #### [facility] [address] [place] [address] Dr. Ling Martin TSHon 09-01-2021 TSH 2.454 uIU/mL Normal 0.358-3.740 [facility] Comment on above: Performed By: #### C VDTBH #### [facility] [address] [place] [address] Dr. Ling Martin VITAMIN B12on 09-01-2021 Cobalamin (Vitamin B12) [Mass/Vol] 332.0 pg/mL Normal 193.0-986.0 [facility] Comment on above: Performed By: #### JAISON BETTS #### [facility] [address] [place] [address] Dr. Ling Martin H PYLORI ANTIBODY IGGon 07-10 H. PYLORI IGG ABS 0.22 Index Value Normal 0.00-0.79 [facility] Comment on above: Result Comment: Nega tive <0.80 Equivocal 0.80 - 0.89 Positive >0.89 Performed By: #### P OCGLUC #### [facility] [address] [place] [address] Dr. Ling Martin T3, TOTAL (TRIIODOTHYRONINE) on 07-30-2021 T3, TOTAL 130 ng/dL Normal 71-180 [facility] Comment on above: Performed By: #### T 3TOTAL #### [facility] [address] [place] [address] Dr. Ling Martin CBC AUTO DIFFon 07-29-2021 BASO # 0.0 103/ul Normal 0.0-0.1 [facility] Comment on above: Performed By: #### JAISON BETTS #### [facility] [address] [place] [address] Dr. Ling Martin Basophils/100 WBC (Bld) 0.4 % Normal 0.2-2.0 [facility] Comment on above: Performed By: #### JAISON BETTS #### [facility] [address] [place] [address] Dr. Ling Martin EO # 0.2 103/ul Normal 0.0-0.7 [facility] Comment on above: Performed By: #### JAISON BETTS #### [facility] [address] [place] [address] Dr. Ling Martin Eosinophils/100 WBC (Bld) 2.5 % Normal 0.9-7.0 [facility] Comment on above: Performed By: #### JAISON BETTS #### [facility] [address] [place] [address] Dr. Ling Martin Erythrocyte distribution width (RBC) [Ratio] 14.9 % Normal 11.0-15.0 [facility] Comment on above: Performed By: #### JAISON BETTS #### [facility] [address] [place] [address] Dr. Ling Martin Hematocrit (Bld) [Volume fraction] 38.8 % Normal 36.0-48.0 [facility] Comment on above: Performed By: #### JAISON BETTS #### [facility] [address] [place] [address] Dr. Ling Martin Hemoglobin (Bld) [Mass/Vol] 12.5 g/dL Normal 12.0-16.0 [facility] Comment on above: Performed By: #### JAISON BETTS #### [facility] [address] [place] [address] Dr. Ling Martin IG # 0.02 10e3/ul Normal 0.00-0.03 [facility] Comment on above: Performed By: #### JAISON BETTS #### [facility] [address] [place] [address] Dr. Ling Martin IG % 0.3 % Normal 0.0-0.5 [facility] Comment on above: Performed By: #### JAISON BETTS #### [facility] [address] [place] [address] Dr. Ling Martin LYMPH # 2.6 103/ul Normal 1.2-3.8 [facility] Comment on above: Performed By: #### CONNIE BETTSRO #### [facility] [address] [place] [address] Dr. Ling Martin Lymphocytes/100 WBC (Bld) 37.6 % Normal 20.5-60.0 [facility] Comment on above: Performed By: #### CONNIE BETTSRO #### [facility] [address] [place] [address] Dr. Ling Martin MANUAL DIFF REQ NO Normal [facility] Comment on above: Performed By: #### CONNIE BETTSRO #### [facility] [address] [place] [address] Dr. Ling Martin MCH (RBC) [Entitic mass] 29.0 pg Normal 26.7-34.0 [facility] Comment on above: Performed By: #### CONNIE BETTSRO #### [facility] [address] [place] [address] Dr. Ling Martin MCHC (RBC) [Mass/Vol] 32.2 g/dL Normal 29.9-35.2 [facility] Comment on above: Performed By: #### CONNIE BETTSRO #### [facility] [address] [place] [address] Dr. Ling Martin MCV (RBC) [Entitic vol] 90.0 fL Normal 81.0-99.0 [facility] Comment on above: Performed By: #### CONNIE BETTSRO #### [facility] [address] [place] [address] Dr. Ling Martin MONO # 0.6 103/ul Normal 0.3-0.8 [facility] Comment on above: Performed By: #### CONNIE BETTSRO #### [facility] [address] [place] [address] Dr. Ling Martin Monocytes/100 WBC (Bld) 8.3 % Normal 1.7-12.0 [facility] Comment on above: Performed By: #### TSERING BETTSICRO #### [facility] [address] [place] [address] Dr. Ling Martin NEUT # 3.5 103/ul Normal 1.4-6.5 [facility] Comment on above: Performed By: #### Yelitza WHITTAKER UMICRO #### [facility] [address] [place] [address] Dr. Ling Martin Neutrophils/100 WBC (Bld) 50.9 % Normal 43.0-75.0 [facility] Comment on above: Performed By: #### Yelitza WHITTAKER UMICRO #### [facility] [address] [place] [address] Dr. Ling Martin Platelet mean volume (Bld) [Entitic vol] 11.5 fL Normal 9.5-13.5 [facility] Comment on above: Performed By: #### TSERING BETTSICRO #### [facility] [address] [place] [address] Dr. Ling Martin PLT 161 103/ul Normal 150-450 [facility] Comment on above: Performed By: #### TSERING BETTSICRO #### [facility] [address] [place] [address] Dr. Ling Martin RBC 4.31 106/ul Normal 4.20-5.40 [facility] Comment on above: Performed By: #### Yelitza WHITTAKER UMICRO #### [facility] [address] [place] [address] Dr. Ling Martin WBC 6.9 103/ul Normal 4.0-11.0 [facility] Comment on above: Performed By: #### Yelitza WHITTAKER UMICRO #### [facility] [address] [place] [address] Dr. Ling Martin CULTURE URINEon 07-29-2021 CULTURE URINE Culture Observations : LIGHT GROWTH OF MIXED GENITAL [place]. NO POTENTIAL PATHOGENS SEEN. Normal [facility] Comment on above: Performed By: #### Yelitza WHITTAKER UMICRO #### [facility] [address] [place] [address] Dr. Ling Martin [facility] SARS-CoV-2 (COVID-19) RNA AIXA+probe Ql (Unsp spec) Not detected Normal NOT DETECTED [facility] Comment on above: Result Comment: When diagnostic testing is negative, the possibility of a false negative should be considered in the context of a patient's recent exposures and the presence of clinical signs and symptoms consistent with SARS-CoV-2. This test is not yet approved or cleared by the [place] FDA. When there are no FDA-approved or cleared tests available, and other criteria are met, FDA can make tests available under an emergency access mechanism called an Emergency Use Authorization (EUA). The EUA for this test is supported by the Resource Teacher of Health and Human Service's declaration that circumstances exist to justify the emergency use of in vitro diagnostics for the detection and/or diagnosis of the virus that causes COVID-19. This EUA will remain in effect for the duration of the COVID-19 declaration justifying emergency of IVDs, unless it is terminated or revoked by the FDA (after which the test may no longer be used). Performed By: #### E REMEDIOS UMICRO #### [facility] [address] [place] [address] Dr. Ling Martin GI PANEL (PCR)on 07-29-2021 Adenovirus F 40/41 Not detected Normal NOT DETECTED [facility] Comment on above: Performed By: #### E RUPierce UMICRO #### [facility] [address] [place] [address] Dr. Ling Martin Astrovirus Not detected Normal NOT DETECTED [facility] Comment on above: Performed By: #### E RUR UMICRO #### [facility] [address] [place] [address] Dr. Ling Martin C. Diff toxin A/B Not detected Normal NOT DETECTED [facility] Comment on above: Performed By: #### E RUR, UMICRO #### [facility] [address] [place] [address] Dr. Ling Martin Campylobacter Not detected Normal NOT DETECTED [facility] Comment on above: Performed By: #### E RUR UMICRO #### [facility] [address] [place] [address] Dr. Ling Martin Cryptosporidium Not detected Normal NOT DETECTED [facility] Comment on above: Performed By: #### Yelitza WHITTAKER UMICRO #### [facility] [address] [place] [address] Dr. Ling Martin Cyclos. Cayetanensis Not detected Normal NOT DETECTED [facility] Comment on above: Performed By: #### Yelitza WHITTAKER UMICRO #### [facility] [address] [place] [address] Dr. Ling Martin E. Coli O157 Not Applicable Normal Not Applicable [facility] Comment on above: Performed By: #### Yelitza WHITTAKER UMICRO #### [facility] [address] [place] [address] Dr. Ling Martin E. histolytica Not detected Normal NOT DETECTED [facility] Comment on above: Performed By: #### Yelitza WHITTAKER UMICRO #### [facility] [address] [place] [address] Dr. Ling Martin EAEC Not detected Normal NOT DETECTED [facility] Comment on above: Performed By: #### Yelitza WHITTAKER UMICRO #### [facility] [address] [place] [address] Dr. Ling Martin EIEC Not detected Normal NOT DETECTED [facility] Comment on above: Performed By: #### Yelitza WHITTAKER UMICRO #### [facility] [address] [place] [address] Dr. Ling Martin EPEC Not detected Normal NOT DETECTED [facility] Comment on above: Performed By: #### Yelitza WHITTAKER UMICRO #### [facility] [address] [place] [address] Dr. Ling Martin ETEC Not detected Normal NOT DETECTED [facility] Comment on above: Performed By: #### Yelitza WHITTAKER UMICRO #### [facility] [address] [place] [address] Dr. Ling Martin G. Lamblia Not detected Normal NOT DETECTED [facility] Comment on above: Performed By: #### Yelitza WHITTAKER UMICRO #### [facility] [address] [address] [address] Ling CEDENO CONTROLS PASSED Normal [facility] Comment on above: Performed By: #### Yelitza WHITTAKER UMICRO #### [facility] [address] [address] [address] Ling WADE HEADER GI PANEL BACTERIA Normal [facility] Comment on above: Performed By: #### Yelitza WHITTAKER UMICRO #### [facility] [address] [place] [address] Dr. Ling MEDRANO ECOLI GI PANEL DIARRHEAGEN IC E.COLI / SHIGELLA Normal [facility] Comment on above: Performed By: #### TSERING BETTSICRO #### [facility] [address] [place] [address] Dr. Ling MEDRANO INFO SEE BELOW Normal [facility] Comment on above: Result Comment: EAEC - Enteroaggregative E. Coli EPEC- Enteropathogenic E. Coli ETEC- Enterotoxigenic E. Coli lt/st STEC- Shigella-like toxin-producing E. Coli stx1/stx2 EIEC- Shigella/Enteroinvasive E. Coli Performed By: #### TSERING BETTSICRO #### [facility] [address] [place] [address] Dr. Ling MEDRANO PARASITES GI PANEL PARASITES Normal [facility] Comment on above: Performed By: #### Yelitza WHITTAKER UMICRO #### [facility] [address] [place] [address] Dr. Ling MEDRANO VIRUS GI PANEL VIRUSES Normal [facility] Comment on above: Performed By: #### Yelitza WHITTAKER UMICRO #### [facility] [address] [place] [address] Dr. Ling Martin Norovirus GI/GII Not detected Normal NOT DETECTED [facility] Comment on above: Performed By: #### Yelitza WHITTAKER UMICRO #### [facility] [address] [place] [address] Dr. Ling Martin P. Shigelloides Not detected Normal NOT DETECTED [facility] Comment on above: Performed By: #### E REMEDIOS, ICRO #### [facility] [address] [place] [address] Dr. Ling Martin Rotavirus A Not detected Normal NOT DETECTED [facility] Comment on above: Performed By: #### E REMEDIOS, UMICRO #### [facility] [address] [place] [address] Dr. Ling Martin Salmonella Not detected Normal NOT DETECTED [facility] Comment on above: Performed By: #### E RUPierce, ICRO #### [facility] [address] [place] [address] Dr. Ling Martin Sapovirus Not detected Normal NOT DETECTED [facility] Comment on above: Performed By: #### E REMEDIOS ICRO #### [facility] [address] [place] [address] Dr. Ling Martin STEC Not detected Normal NOT DETECTED [facility] Comment on above: Performed By: #### E REMEDIOS ICRO #### [facility] [address] [place] [address] Dr. Ling Martin Vibrio Not detected Normal NOT DETECTED [facility] Comment on above: Performed By: #### Yelitza WHITTAKER ICRO #### [facility] [address] [place] [address] Dr. Ling Martin Vibrio Cholera Not detected Normal NOT DETECTED [facility] Comment on above: Performed By: #### Yelitza WHITTAKER ICRO #### [facility] [address] [place] [address] Dr. Ling Martin Y. Enterocolitica Not detected Normal NOT DETECTED [facility] Comment on above: Performed By: #### E REMEDIOS ICRO #### [facility] [address] [place] [address] Dr. Ling Martin POINT OF CARE GLUCOSEon 06-2 Glucose [Mass/Vol] 109 mg/dL Critically high 74-106 [facility] Comment on above: Performed By: #### P OCGLUC #### [facility] [address] [place] [address] Dr. Ling Martin Glucose [Mass/Vol] 205 mg/dL Critically high 74-106 [facility] Comment on above: Performed By: #### P OCGLUC #### [facility] [address] [address] [address] Ling Martin PROF 14(COMP METB)on 07-29- 022 Albumin [Mass/Vol] 3.3 g/dL Critically low 3.4-5.0 [facility] Comment on above: Performed By: #### E REMEDIOS, UMICRO #### [facility] [address] [address] [address] Ling Martin Albumin/Globulin [Mass ratio] 1.3 {ratio} Normal [facility] Comment on above: Performed By: #### E REMEDIOS, UMICRO #### [facility] [address] [place] [address] Dr. Ling Martin ALP [Catalytic activity/Vol] 117 U/L Critically high 46-116 [facility] Comment on above: Performed By: #### E REMEDIOS, UMICRO #### [facility] [address] [place] [address] Dr. Ling Martin ALT [Catalytic activity/Vol] 46 U/L Normal 14-59 [facility] Comment on above: Performed By: #### E RUPierce, UMICRO #### [facility] [address] [place] [address] Dr. Ling Martin Anion gap [Moles/Vol] 13.8 mmol/L Normal [facility] Comment on above: Performed By: #### E REMEDIOS, UMICRO #### [facility] [address] [place] [address] Dr. Ling Martin AST [Catalytic activity/Vol] 17 U/L Normal 15-37 [facility] Comment on above: Performed By: #### E REMEDIOS, UMICRO #### [facility] [address] [address] [address] Ling Martin Bilirubin [Mass/Vol] 0.5 mg/dL Normal 0.2-1.0 [facility] Comment on above: Performed By: #### Yelitza WHITTAKER UMICRO #### [facility] [address] [place] [address] Dr. Ling Martin Calcium [Mass/Vol] 8.3 mg/dL Critically low 8.5-10.1 [facility] Comment on above: Performed By: #### Yelitza WHITTAKER UMICRO #### [facility] [address] [place] [address] Dr. Ling Martin Chloride [Moles/Vol] 110 mmol/L Critically high 98-107 [facility] Comment on above: Performed By: #### Yelitza WHITTAKER UMICRO #### [facility] [address] [place] [address] Dr. Ling Martin CO2 [Moles/Vol] 22.1 mmol/L Normal 21.0-32.0 [facility] Comment on above: Performed By: #### Yelitza WHITTAKER UMICRO #### [facility] [address] [place] [address] Dr. Ling Martin Creatinine [Mass/Vol] 0.80 mg/dL Normal 0.55-1.02 [facility] Comment on above: Performed By: #### Yelitza WHITTAKER UMICRO #### [facility] [address] [place] [address] Dr. Ling Martin EGFR-AF [place] >60 Normal >=60 [facility] Comment on above: Performed By: #### Yelitza WHITTAKER UMICRO #### [facility] [address] [place] [address] Dr. Ling Martin EGFR-NON AF [place] >60 Normal >=60 [facility] Comment on above: Performed By: #### Yelitza WHITTAKER UMICRO #### [facility] [address] [place] [address] Dr. Ling Martin Globulin (S) [Mass/Vol] 2.5 g/dL Normal [facility] Comment on above: Performed By: #### Yelitza WHITTAKER UMICRO #### [facility] [address] [place] [address] Dr. Ling Martin Glucose [Mass/Vol] 98 mg/dL Normal 74-106 [facility] Comment on above: Performed By: #### JAISON BETTS #### [facility] [address] [place] [address] Dr. Ling Martin Potassium [Moles/Vol] 3.9 mmol/L Normal 3.5-5.1 [facility] Comment on above: Performed By: #### JAISON BETTS #### [facility] [address] [place] [address] Dr. Ling Martin Protein [Mass/Vol] 5.8 g/dL Critically low 6.4-8.2 [facility] Comment on above: Performed By: #### JAISON BETTS #### [facility] [address] [place] [address] Dr. Ling Martin Sodium [Moles/Vol] 142 mmol/L Normal 136-145 [facility] Comment on above: Performed By: #### JAISON BETTS #### [facility] [address] [place] [address] Dr. Ling Martin Urea nitrogen [Mass/Vol] 8.0 mg/dL Normal 7.0-18.0 [facility] Comment on above: Performed By: #### JAISON BETTS #### [facility] [address] [place] [address] Dr. Ling Martin Urea nitrogen/Creatinine [Mass ratio] 10.0 mg/mg Normal [facility] Comment on above: Performed By: #### JAISON BETTS #### [facility] [address] [place] [address] Dr. Ling Martin AMMONIAon 07-28-2021 Ammonia (P) [Mass/Vol] ug/dL Critically low 11-32 [facility] Comment on above: Performed By: #### C MP #### [facility] [address] [place] [address] Dr. Ling Martin AMYLASEon 07-28-2021 Amylase [Catalytic activity/Vol] 39 U/L Normal 25-115 [facility] Comment on above: Performed By: #### C BC #### [facility] [address] [place] [address] Dr. Ling Martin BNPon 07-28-2021 Natriuretic peptide B (Bld) [Mass/Vol] 337.0 pg/mL Normal <=450.0 [facility] Comment on above: Performed By: #### C BC #### [facility] [address] [place] [address] Dr. Ling Martin CARDIAC NATHAN ADMITon 022 CK [Catalytic activity/Vol] 57 U/L Normal 26-192 [facility] Comment on above: Performed By: #### C BC #### [facility] [address] [place] [address] Dr. Ling Martin CK.MB [Mass/Vol] 0.56 ng/mL Normal <=3.60 [facility] Comment on above: Performed By: #### C BC #### [facility] [address] [place] [address] Dr. Ling Martin HSTROP 7.2 pg/mL Normal 4.0-51.3 [facility] Comment on above: Result Comment: CUT- OFF POINTS HAVE BEEN ESTABLISHED BASED ON THE FOURTH UNIVERSAL DEFINITIONS OF MYOCARDIAL INFARCTION. THE UPPER REFERENCE LIMIT (URL) OF TROPONIN, DEFINED THE 99TH PERCENTILE OF cTnI DISTRIBUTION IN A REFERENCE POPULATION, HAS BEEN CONFIRMED THE DECISION THRESHOLD FOR UT DIAGNOSIS. Performed By: #### C BC #### [facility] [address] [place] [address] Dr. Ling Martin DREA 20 ng/mL Normal 9-82 [facility] Comment on above: Performed By: #### C BC #### [facility] [address] [place] [address] Dr. Ling Martin CBC AUTO DIFFon 07-28-2021 BASO # 0.1 103/ul Normal 0.0-0.1 [facility] Comment on above: Performed By: #### P OCGLUC #### [facility] [address] [place] [address] Dr. Ling Martin Basophils/100 WBC (Bld) 0.6 % Normal 0.2-2.0 [facility] Comment on above: Performed By: #### P OCGLUC #### [facility] [address] [place] [address] Dr. Ling Martin EO # 0.2 103/ul Normal 0.0-0.7 [facility] Comment on above: Performed By: #### P OCGLUC #### [facility] [address] [place] [address] Dr. Ling Martin Eosinophils/100 WBC (Bld) 2.1 % Normal 0.9-7.0 [facility] Comment on above: Performed By: #### P OCGLUC #### [facility] [address] [place] [address] Dr. Ling Martin Erythrocyte distribution width (RBC) [Ratio] 15.3 % Critically high 11.0-15.0 [facility] Comment on above: Performed By: #### P OCGLUC #### [facility] [address] [place] [address] Dr. Ling Martin Hematocrit (Bld) [Volume fraction] 43.7 % Normal 36.0-48.0 [facility] Comment on above: Performed By: #### P OCGLUC #### [facility] [address] [place] [address] Dr. Ling Martin Hemoglobin (Bld) [Mass/Vol] 14.0 g/dL Normal 12.0-16.0 [facility] Comment on above: Performed By: #### P OCGLUC #### [facility] [address] [place] [address] Dr. Ling Martin IG # 0.02 10e3/ul Normal 0.00-0.03 [facility] Comment on above: Performed By: #### P OCGLUC #### [facility] [address] [place] [address] Dr. Ling Martin IG % 0.2 % Normal 0.0-0.5 [facility] Comment on above: Performed By: #### P OCGLUC #### [facility] [address] [place] [address] Dr. Ling Martin LYMPH # 2.3 103/ul Normal 1.2-3.8 [facility] Comment on above: Performed By: #### P OCGLUC #### [facility] [address] [place] [address] Dr. Ling Martin Lymphocytes/100 WBC (Bld) 28.4 % Normal 20.5-60.0 [facility] Comment on above: Performed By: #### P OCGLUC #### [facility] [address] [place] [address] Dr. Ling Martin MANUAL DIFF REQ NO Normal [facility] Comment on above: Performed By: #### P OCGLUC #### [facility] [address] [place] [address] Dr. Ling Martin MCH (RBC) [Entitic mass] 28.7 pg Normal 26.7-34.0 [facility] Comment on above: Performed By: #### P OCGLUC #### [facility] [address] [place] [address] Dr. Ling Martin MCHC (RBC) [Mass/Vol] 32.0 g/dL Normal 29.9-35.2 [facility] Comment on above: Performed By: #### P OCGLUC #### [facility] [address] [place] [address] Dr. Ling Martin MCV (RBC) [Entitic vol] 89.5 fL Normal 81.0-99.0 [facility] Comment on above: Performed By: #### P OCGLUC #### [facility] [address] [place] [address] Dr. Ling Martin MONO # 0.5 103/ul Normal 0.3-0.8 [facility] Comment on above: Performed By: #### P OCGLUC #### [facility] [address] [place] [address] Dr. Ling Martin Monocytes/100 WBC (Bld) 6.5 % Normal 1.7-12.0 [facility] Comment on above: Performed By: #### P OCGLUC #### [facility] [address] [place] [address] Dr. iLng Martin NEUT # 5.1 103/ul Normal 1.4-6.5 [facility] Comment on above: Performed By: #### P OCGLUC #### [facility] [address] [address] [address] Ling Martin Neutrophils/100 WBC (Bld) 62.2 % Normal 43.0-75.0 [facility] Comment on above: Performed By: #### P OCGLUC #### [facility] [address] [address] [address] Ling Martin Platelet mean volume (Bld) [Entitic vol] 11.4 fL Normal 9.5-13.5 [facility] Comment on above: Performed By: #### P OCGLUC #### [facility] [address] [place] [address] Dr. Ling Martin PLT 179 103/ul Normal 150-450 [facility] Comment on above: Result Comment: no p lt clumps Performed By: #### P OCGLUC #### [facility] [address] [place] [address] Dr. Ling Martin RBC 4.88 106/ul Normal 4.20-5.40 [facility] Comment on above: Performed By: #### P OCGLUC #### [facility] [address] [place] [address] Dr. Ling Mratin WBC 8.2 103/ul Normal 4.0-11.0 [facility] Comment on above: Performed By: #### P OCGLUC #### [facility] [address] [place] [address] Dr. Lign Martin CRPon 07-28-2021 CRP [Mass/Vol] mg/L Normal <=1.0 [facility] Comment on above: Performed By: #### C MP #### [facility] [address] [place] [address] Dr. Ling Martin LACTATE/LACTIC ACIDon 2021 Lactate [Moles/Vol] 1.6 mmol/L Normal 0.4-1.9 [facility] Comment on above: Performed By: #### C MP #### [facility] [address] [place] [address] Dr. Ling Martin LIPASEon 07-28-2021 Lipase [Catalytic activity/Vol] 65.0 U/L Critically low 73.0-393.0 [facility] Comment on above: Performed By: #### C BC #### [facility] [address] [place] [address] Dr. Ling Martin MAGNESIUMon 07-28-2021 Magnesium [Mass/Vol] 2.2 mg/dL Normal 1.8-2.4 [facility] Comment on above: Performed By: #### C MP #### [facility] [address] [place] [address] Dr. Ling Martin PHOSPHORUSon 07-28-2021 Phosphate [Mass/Vol] 4.0 mg/dL Normal 2.6-4.7 [facility] Comment on above: Performed By: #### C MP #### [facility] [address] [place] [address] Dr. Ling Martin PROF 14(COMP METB)on 022 Albumin [Mass/Vol] 4.1 g/dL Normal 3.4-5.0 [facility] Comment on above: Performed By: #### C BC #### [facility] [address] [place] [address] Dr. Ling Martin Albumin/Globulin [Mass ratio] 1.2 {ratio} Normal [facility] Comment on above: Performed By: #### C BC #### [facility] [address] [place] [address] Dr. Ling Martin ALP [Catalytic activity/Vol] 140 U/L Critically high 46-116 [facility] Comment on above: Performed By: #### C BC #### [facility] [address] [place] [address] Dr. Ling Martin ALT [Catalytic activity/Vol] 52 U/L Normal 14-59 [facility] Comment on above: Performed By: #### C BC #### [facility] [address] [place] [address] Dr. Ling Martin Anion gap [Moles/Vol] 13.8 mmol/L Normal [facility] Comment on above: Performed By: #### C BC #### [facility] [address] [place] [address] Dr. Ling Martin AST [Catalytic activity/Vol] 26 U/L Normal 15-37 [facility] Comment on above: Performed By: #### C BC #### [facility] [address] [place] [address] Dr. Ling Martin Bilirubin [Mass/Vol] 0.5 mg/dL Normal 0.2-1.0 [facility] Comment on above: Performed By: #### C BC #### [facility] [address] [place] [address] Dr. Ling Martin Calcium [Mass/Vol] 8.9 mg/dL Normal 8.5-10.1 [facility] Comment on above: Performed By: #### C BC #### [facility] [address] [place] [address] Dr. Ling Martin Chloride [Moles/Vol] 106 mmol/L Normal 98-107 [facility] Comment on above: Performed By: #### C BC #### [facility] [address] [place] [address] Dr. Ling Martin CO2 [Moles/Vol] 24.0 mmol/L Normal 21.0-32.0 [facility] Comment on above: Performed By: #### C BC #### [facility] [address] [place] [address] Dr. Ling Martin Creatinine [Mass/Vol] 0.91 mg/dL Normal 0.55-1.02 [facility] Comment on above: Performed By: #### C BC #### [facility] [address] [place] [address] Dr. Ling Martin EGFR-AF KU[place]I >60 Normal >=60 [facility] Comment on above: Performed By: #### C BC #### [facility] [address] [place] [address] Dr. Ling Martin EGFR-NON AF [place]I >60 Normal >=60 [facility] Comment on above: Performed By: #### C BC #### [facility] [address] [place] [address] Dr. Ling Martin Globulin (S) [Mass/Vol] 3.5 g/dL Normal [facility] Comment on above: Performed By: #### C BC #### [facility] [address] [address] [address] Ling Martin Glucose [Mass/Vol] 92 mg/dL Normal 74-106 [facility] Comment on above: Performed By: #### C BC #### [facility] [address] [address] [address] Ling Martin Potassium [Moles/Vol] 3.8 mmol/L Normal 3.5-5.1 [facility] Comment on above: Performed By: #### C BC #### [facility] [address] [address] [address] Ling Martin Protein [Mass/Vol] 7.6 g/dL Normal 6.4-8.2 [facility] Comment on above: Performed By: #### C BC #### [facility] [address] [address] [address] Ling Martin Sodium [Moles/Vol] 140 mmol/L Normal 136-145 [facility] Comment on above: Performed By: #### C BC #### [facility] [address] [address] [address] Ling Martin Urea nitrogen [Mass/Vol] 9.0 mg/dL Normal 7.0-18.0 [facility] Comment on above: Performed By: #### C BC #### [facility] [address] [address] [address] Ling Martin Urea nitrogen/Creatinine [Mass ratio] 9.9 mg/mg Normal [facility] Comment on above: Performed By: #### C BC #### [facility] [address] [address] [address] Ling Martin T4on 07-28-2021 T4 [Mass/Vol] 8.90 ug/dL Normal 4.80-13.90 [facility] Comment on above: Performed By: #### C BC #### [facility] [address] [address] [address] Ling Martin TSHon 07-28-2021 TSH 2.389 uIU/mL Normal 0.358-3.740 [facility] Comment on above: Performed By: #### C MP #### [facility] [address] [place] [address] Dr. Ling Martin UA RANDOM W/MICROSCOPICon BACTERIA MODERATE Abnormal NONE SEEN The [facility] Comment on above: Performed By: #### Yelitza WHITTAKER, UMICRO #### [facility] [address] [place] [address] Dr. Ling Martin Bilirubin Ql (U) Negative Normal NEGATIVE [facility] Comment on above: Performed By: #### Yelitza WHITTAKER, UMICRO #### [facility] [address] [place] [address] Dr. Ling Martin CAST NONE SEEN Normal NONE SEEN [facility] Comment on above: Performed By: #### Yelitza WHITTAKER UMICRO #### [facility] [address] [place] [address] Dr. Ling Martin Clarity (U) CLEAR Normal CLEAR [facility] Comment on above: Performed By: #### Yelitza WHITTAKER UMICRO #### [facility] [address] [place] [address] Dr. Ling Martin Color (U) LT. YELLOW Normal YELLOW [facility] Comment on above: Performed By: #### Yelitza WHITTAKER UMICRO #### [facility] [address] [place] [address] Dr. Ling Martin Crystals LM Nom (Urine sed) NONE SEEN Normal NONE SEEN [facility] Comment on above: Performed By: #### Yelitza WHITTAKER UMICRO #### [facility] [address] [place] [address] Dr. Ling Martin Epithelial cells LM Ql (Urine sed) MODERATE Abnormal NONE SEEN /RARE [facility] Comment on above: Performed By: #### Yelitza WHITTAKER UMICRO #### [facility] [address] [place] [address] Dr. Ling Martin Glucose Ql (U) Negative Normal NEGATIVE [facility] Comment on above: Performed By: #### Yelitza WHITTAKER UMICRO #### [facility] [address] [place] [address] Dr. Ling Martin Hemoglobin Ql (U) SMALL Abnormal NEGATIVE [facility] Comment on above: Performed By: #### Yelitza WHITTAKER UMICRO #### [facility] [address] [place] [address] Dr. Ling Martin Ketones Ql (U) Negative Normal NEGATIVE [facility] Comment on above: Performed By: #### Yelitza WHITTAKER UMICRO #### [facility] [address] [place] [address] Dr. Ling Martin LEUKOCYTES TRACE Abnormal NEGATIVE [facility] Comment on above: Performed By: #### Yelitza WHITTAKER UMICRO #### [facility] [address] [place] [address] Dr. Ling Martin MUCOUS NONE SEEN Normal NONE SEEN The [facility] Comment on above: Performed By: #### Yelitza WHITTAKER UMICRO #### [facility] [address] [place] [address] Dr. Ling Martin Nitrite Ql (U) Negative Normal NEGATIVE [facility] Comment on above: Performed By: #### Yelitza WHITTAKER UMICRO #### [facility] [address] [place] [address] Dr. Ling Martin pH (U) 5.5 [pH] Normal 5-9 [facility] Comment on above: Performed By: #### Yelitza WHITTAKER UMICRO #### [facility] [address] [place] [address] Dr. Ling Martin RBC 0-2 Normal 0-2 [facility] Comment on above: Performed By: #### Yelitza WHITTAKER UMICRO #### [facility] [address] [place] [address] Dr. Ling Martin SPEC GRAVITY 1.020 Normal 1.005-<=1.0 25 [facility] Comment on above: Performed By: #### Yelitza WHITTAKER UMICRO #### [facility] [address] [place] [address] Dr. Ling Martin UA PROTEIN Negative Normal NEGATIVE/ TRACE [facility] Comment on above: Performed By: #### Yelitza WHITTAKER UMICRO #### [facility] [address] [address] [address] Ling Martin Urobilinogen Qn (U) 1.0 {Sera'U}/dL Normal 0.2 - 1. 0 [facility] Comment on above: Performed By: #### Yelitza WHITTAKER UMICRO #### [facility] [address] [address] [address] Ling Martin WBC NONE SEEN Normal NONE SEEN The [facility] Comment on above: Performed By: #### Yelitza WHITTAKER, UMICRO #### [facility] [address] [address] [address] Ling Martin MRI SHOULDER WO IVCON RTon 1 03-11-2020 [facility] No Panel Informationon 12-27 [facility] No Panel Informationon 11-21 [facility] SURGICAL PATHOLOGYon 018 SURGICAL PATHOLOGY [facility]: [id number] Physician: ALANA ESPAÑA M.D. FINAL DIAGNOSIS1. Small bowel, jejunum, biopsy (A) - Small bowel mucosa with no pathologicdiagnostic abnormality.2. Stomach, biopsy (B) - Gastric antral body-type mucosa with mild chronicinactive gastritis; see comment.3. Small bowel, ileum, biopsy (C) - Small bowel mucosa with no pathologicdiagnostic abnormality.4. Ileocecal valve nodule, biopsy (D) - Small bowel mucosa with nopathologic diagnostic abnormality.5. Colon, random biopsy (E) - Colonic mucosa with no pathologic diagnosticabnormality.6. Colon, rectal polyp, biopsy (F) - Hyperplastic polyp.SS/lbk 10/14/[id number]. No microorganisms morphologically compatible with H. pylori areidentified on routine [facility] stained sections.No Roberts M.D.(Electronic Signature) S PECIMEN SUBMITTEDA: JEJUNUM, BIOPSY B: GASTRIC, BIOPSY C: ILEUM, BIOPSY D: ILEAL CECAL VALVE NODULE, ILEUM, BIOPSY E: RANDOM COLON, BIOPSY F: RECTAL POLYP CLINICAL DATADIARRHEA, UNSPECIFIED : VOMITING OF FECAL MATTER WITH NAUSEA GROSS DESCRIPTIONA. Received in formalin are three pieces of santamaria, soft tissue aggregating to1.2 x 0.3 x 0.2 cm. Totally submitted in one cassette.B. Received in formalin are two pieces of santamaria, soft tissue aggregating to0.7 x 0.3 x 0.2 cm. Totally submitted in one cassette.C. Received in formalin are two pieces of santamaria, soft tissue aggregating to0.8 x 0.3 x 0.2 cm. Totally submitted in one cassette.D. Received in formalin are three pieces of santamaria, soft tissue aggregating to0.8 x 0.2 x 0.2 cm. Totally submitted in one cassette.E. Received in formalin are five pieces of santamaria, soft tissue aggregating to1.5 x 0.3 x 0.2 cm. Totally submitted in one cassette.F. Received in formalin is one piece of santamaria, soft tissue measuring 0.5 x0.3 x 0.3 cm. Totally submitted in one cassette.Gross examination performed at [facility], [address] [place] [address] 10/13/2017 3:45:18 PMPatient ID #: [id number] of Report: 10/14/2017Date of Procedure: 10/13/2017Date of Receipt: 10/13/2017Submitted by: ALANA ESPAÑA M.D.Location: AVENDiagnostic interpretation performed at [facility], [address] [place] [address]. Normal [facility] Comment on above: Performed By: #### S ####See report for performing lab information. No Panel Information [facility] Vital Signs Date Time Vital Sign Value Performing Clinician Facility 05-24-2023 23:00-0400 Diastolic blood pressure 87 mm[Hg] MD Farhat Pineda Work Phone: [facility] 05-24-2023 23:00-0400 Heart rate 83 /min MD Farhat Pineda Work Phone: [facility] 05-24-2023 23:00-0400 Respiratory rate 20 /min MD Fahrat Pineda Work Phone: [facility] 05-24-2023 23:00-0400 SaO2% (BldA) [Mass fraction] 97 % MD Farhat Pineda Work Phone: [facility] 05-24-2023 23:00-0400 Systolic blood pressure 157 mm[Hg] MD Farhat Pineda Work Phone: [facility] 05-24-2023 20:04-0400 Body height 157.48 cm MD Farhat Pineda Work Phone: [facility] 05-24-2023 20:04-0400 Body weight 112.7 kg MD Farhat Pineda Work Phone: [facility] 05-24-2023 20:03-0400 Body temperature 97.6 [degF] MD Farhat Pineda Work Phone: [facility] 05-03-2023 14:45-0400 Diastolic blood pressure 79 mm[Hg] Mika Hernandez MD Work Phone: [facility] 05-03-2023 14:45-0400 Heart rate 67 /min Mika Hernandez MD Work Phone: [facility] 05-03-2023 14:45-0400 Respiratory rate 16 /min Mika Hernandez MD Work Phone: [facility] 05-03-2023 14:45-0400 SaO2% (BldA) [Mass fraction] 96 % Mika Hernandez MD Work Phone: [facility] 05-03-2023 14:45-0400 Systolic blood pressure 131 mm[Hg] Mika Hernandez MD Work Phone: [facility] 05-03-2023 14:13-0400 Body temperature 97.2 [degF] Mika Hernandez MD Work Phone: [facility] 03-26-2023 09:34-0500 Blood Pressure Location JUAN MASON [facility] 03-26-2023 09:34-0500 Body temperature 98.06 [degF] JUAN MASON [facility] 03-26-2023 09:34-0500 Diastolic blood pressure 84 mm[Hg] SEATTLE MASON [facility] 03-26-2023 09:34-0500 Heart rate 95 /min SEATTLE MARIYA [facility] 03-26-2023 09:34-0500 SaO2% (BldA) [Mass fraction] 98 % SEATTLE MARIYA [facility] 03-26-2023 09:34-0500 Systolic blood pressure 116 mm[Hg] SEATTLE MARIYA [facility] 02-08-2023 00:05-0500 Heart rate 82 /min MD Farhat Pineda Work Phone: [facility] 02-08-2023 00:05-0500 Respiratory rate 16 /min MD Farhat Pineda Work Phone: [facility] 02-08-2023 00:05-0500 SaO2% (BldA) [Mass fraction] 98 % MD Farhat Pineda Work Phone: [facility] 02-07-2023 23:16-0500 Body temperature 98.1 [degF] MD Farhat Pineda Work Phone: [facility] 02-07-2023 23:16-0500 Diastolic blood pressure 83 mm[Hg] MD Farhat Pineda Work Phone: [facility] 02-07-2023 23:16-0500 Systolic blood pressure 159 mm[Hg] MD Farhat Pineda Work Phone: [facility] 02-07-2023 23:00-0500 Body height 157.48 cm MD Farhat Pineda Work Phone: [facility] 02-07-2023 23:00-0500 Body weight 103.5 kg MD Farhat Pineda Work Phone: [facility] 01-14-2023 15:20-0500 Heart rate 100 /min Ladarius Frederick [facility] 01-14-2023 15:20-0500 Respiratory rate 12 /min Ladarius Frederick [facility] 01-14-2023 15:20-0500 SaO2% (BldA) [Mass fraction] 96 % Ladarius Frederick [facility] 01-14-2023 14:20-0500 Diastolic blood pressure 60 mm[Hg] Ladarius Frederick [facility] 01-14-2023 14:20-0500 Heart rate 79 /min Ladarius Frederick [facility] 01-14-2023 14:20-0500 Respiratory rate 10 /min Ladarius Frederick [facility] 01-14-2023 14:20-0500 SaO2% (BldA) [Mass fraction] 95 % Ladarius Frederick [facility] 01-14-2023 14:20-0500 Systolic blood pressure 127 mm[Hg] Ladarius Frederick [facility] 01-14-2023 13:20-0500 Diastolic blood pressure 91 mm[Hg] Ladarius Frederick [facility] 01-14-2023 13:20-0500 Heart rate 82 /min Ladarius Frederick [facility] 01-14-2023 13:20-0500 Respiratory rate 19 /min Ladarius Frederick [facility] 01-14-2023 13:20-0500 SaO2% (BldA) [Mass fraction] 95 % Ladarius Frederick [facility] 01-14-2023 13:20-0500 Systolic blood pressure 148 mm[Hg] Ladarius Frederick [facility] 01-14-2023 12:32-0500 Diastolic blood pressure 100 mm[Hg] Ladarius Frederick [facility] 01-14-2023 12:32-0500 Systolic blood pressure 140 mm[Hg] Ladarius Frederick [facility] 01-14-2023 11:20-0500 Heart rate 78 /min Ladarius Frederick [facility] 01-14-2023 11:20-0500 Mean blood pressure 103 mm[Hg] Ladarius Frederick [facility] 01-14-2023 11:20-0500 Respiratory rate 21 /min Ladarius Frederick [facility] 01-14-2023 10:45-0500 Body temperature 97.7 [degF] Ladarius Frederick [facility] 01-14-2023 10:45-0500 Heart rate 75 /min Ladarius Frederick [facility] 01-14-2023 10:45-0500 Respiratory rate 23 /min Ladarius Frederick [facility] 01-09-2023 12:01-0500 Diastolic blood pressure 83 mm[Hg] MD Farhat Pineda Work Phone: [facility] 01-09-2023 12:01-0500 Heart rate 103 /min MD Farhat Pineda Work Phone: [facility] 01-09-2023 12:01-0500 Systolic blood pressure 146 mm[Hg] MD Farhat Pineda Work Phone: [facility] 01-09-2023 09:33-0500 Respiratory rate 20 /min MD Farhat Pineda Work Phone: [facility] 01-09-2023 09:33-0500 SaO2% (BldA) [Mass fraction] 96 % MD Farhat Pineda Work Phone: [facility] 01-09-2023 04:16-0500 Body height 157.48 cm MD Farhat Pineda Work Phone: [facility] 01-09-2023 04:16-0500 Body temperature 97.9 [degF] MD Farhat Pineda Work Phone: [facility] 01-09-2023 04:16-0500 Body weight 95.25 kg MD Farhat Pineda Work Phone: [facility] 01-05-2023 14:36-0500 Body height 160 cm Eleanor Bicanovsky DO Work Phone: [facility] 01-05-2023 14:36-0500 Body weight 99.79 kg Eleanor Bicanovsky DO Work Phone: [facility] 01-05-2023 14:36-0500 Diastolic blood pressure 79 mm[Hg] Eleanor Bicanovsky DO Work Phone: [facility] 01-05-2023 14:36-0500 Heart rate 80 /min Eleanor Bicanovsky DO Work Phone: [facility] 01-05-2023 14:36-0500 Systolic blood pressure 130 mm[Hg] Eleanor Bicanovsky DO Work Phone: [facility] 12-22-2022 14:15-0500 Body height 159.4 cm Pacc 2 Work Phone: [facility] 12-22-2022 14:15-0500 Body temperature 97.2 [degF] Pacc 2 Work Phone: [facility] 12-22-2022 14:15-0500 Body weight 97.52 kg Pacc 2 Work Phone: [facility] 12-22-2022 14:15-0500 Diastolic blood pressure 83 mm[Hg] Pacc 2 Work Phone: [facility] 12-22-2022 14:15-0500 Heart rate 77 /min Pacc 2 Work Phone: [facility] 12-22-2022 14:15-0500 Respiratory rate 16 /min Pacc 2 Work Phone: [facility] 12-22-2022 14:15-0500 SaO2% (BldA) [Mass fraction] 99 % Pacc 2 Work Phone: [facility] 12-22-2022 14:15-0500 Systolic blood pressure 135 mm[Hg] Pacc 2 Work Phone: [facility] 11-30-2022 11:18-0400 Body height 157.5 cm Bipin Juan Joseonedaniel [employer]CH[employer]ICIAN[employer] Work Phone: [facility] 11-30-2022 11:18-0400 Body weight 99.34 kg Bipin Juan Joseonedaniel AERIAL SURVEY TECHNICIAN[employer] Work Phone: [facility] 11-30-2022 11:18-0400 Diastolic blood pressure 88 mm[Hg] Bipin Pieronek AERIAL SUR[employer]Y TECHNICIAN[employer] Work Phone: [facility] 11-30-2022 11:18-0400 Heart rate 82 /min Bipin Juan Joseonek AERIAL SURVEY TECHNICIAN[employer] Work Phone: [facility] 11-30-2022 11:18-0400 Systolic blood pressure 134 mm[Hg] Bipin Pieronek A[employer] SUR[employer]Y TECHNICIAN[employer] Work Phone: [facility] 11-26-2022 16:16-0400 Body height 159.4 cm Thaddeus Diggs MD Work Phone: [facility] 11-26-2022 16:16-0400 Body temperature 98.49 [degF] Thaddeus Diggs MD Work Phone: [facility] 11-26-2022 16:16-0400 Body weight 98.88 kg Thaddeus Diggs MD Work Phone: [facility] 11-26-2022 16:16-0400 Diastolic blood pressure 75 mm[Hg] Thaddeus Diggs MD Work Phone: [facility] 11-26-2022 16:16-0400 Heart rate 93 /min Thaddeus Diggs MD Work Phone: [facility] 11-26-2022 16:16-0400 SaO2% (BldA) [Mass fraction] 97 % Thaddeus Diggs MD Work Phone: [facility] 11-26-2022 16:16-0400 Systolic blood pressure 106 mm[Hg] Thaddeus Diggs MD Work Phone: [facility] 11-13-2022 08:08-0400 Body height 157.5 cm Thaddeus Diggs MD Work Phone: [facility] 11-13-2022 08:08-0400 Body temperature 97.5 [degF] Thaddeus Diggs MD Work Phone: [facility] 11-13-2022 08:08-0400 Body weight 100.7 kg Thaddeus Diggs MD Work Phone: [facility] 11-13-2022 08:08-0400 Diastolic blood pressure 81 mm[Hg] Thaddeus Diggs MD Work Phone: [facility] 11-13-2022 08:08-0400 Heart rate 70 /min Thaddeus Diggs MD Work Phone: [facility] 11-13-2022 08:08-0400 SaO2% (BldA) [Mass fraction] 97 % Thaddeus Diggs MD Work Phone: [facility] 11-13-2022 08:08-0400 Systolic blood pressure 115 mm[Hg] Thaddeus Diggs MD Work Phone: [facility] 10-23-2022 15:08-0400 Body height 158.2 cm Dariel Le MD Work Phone: [facility] 10-23-2022 15:08-0400 Body weight 99.79 kg Dariel Le MD Work Phone: [facility] 10-23-2022 15:08-0400 Diastolic blood pressure 80 mm[Hg] Dariel Le MD Work Phone: [facility] 10-23-2022 15:08-0400 Heart rate 79 /min Dariel Le MD Work Phone: [facility] 10-23-2022 15:08-0400 Systolic blood pressure 128 mm[Hg] Dariel Le MD Work Phone: [facility] 10-06-2022 14:08-0400 Body height 158.8 cm Pacc 2 Work Phone: [facility] 10-06-2022 14:08-0400 Body temperature 97.9 [degF] Pacc 2 Work Phone: [facility] 10-06-2022 14:08-0400 Body weight 101.15 kg Pacc 2 Work Phone: [facility] 10-06-2022 14:08-0400 Diastolic blood pressure 78 mm[Hg] Pacc 2 Work Phone: [facility] 10-06-2022 14:08-0400 Heart rate 68 /min Pacc 2 Work Phone: [facility] 10-06-2022 14:08-0400 Respiratory rate 16 /min Pacc 2 Work Phone: [facility] 10-06-2022 14:08-0400 SaO2% (BldA) [Mass fraction] 100 % Pacc 2 Work Phone: [facility] 10-06-2022 14:08-0400 Systolic blood pressure 114 mm[Hg] Pacc 2 Work Phone: [facility] 10-02-2022 13:48-0400 Body weight 99.79 kg Eleanor Bicanovsky DO Work Phone: [facility] 10-02-2022 13:48-0400 Diastolic blood pressure 72 mm[Hg] Eleanor Bicanovsky DO Work Phone: [facility] 10-02-2022 13:48-0400 Heart rate 74 /min Eleanor Bicanovsky DO Work Phone: [facility] 10-02-2022 13:48-0400 Systolic blood pressure 110 mm[Hg] Eleanor Bicanovsky DO Work Phone: [facility] 06-16-2022 15:29-0400 Body weight 102.92 kg Luis F Barraza APRN.[employer] Work Phone: [facility] 06-16-2022 15:29-0400 Diastolic blood pressure 77 mm[Hg] Luis F Barraza APRN.DRI[employer] Work Phone: [facility] 06-16-2022 15:29-0400 Heart rate 84 /min Luis F Barraza APRN.[employer] Work Phone: [facility] 06-16-2022 15:29-0400 SaO2% (BldA) [Mass fraction] 99 % Luis F Barraza APRN.[employer] Work Phone: [facility] 06-16-2022 15:29-0400 Systolic blood pressure 135 mm[Hg] Luis F Barraza APRN.DRILL PR[employer] HAND Work Phone: [facility] 06-11-2022 11:41-0400 Body height 154.9 cm Eleanor Bicanovsky DO Work Phone: [facility] 06-11-2022 11:41-0400 Body weight 96.16 kg Eleanor Bicanovsky DO Work Phone: [facility] 06-11-2022 11:41-0400 Diastolic blood pressure 71 mm[Hg] Eleanor Bicanovsky DO Work Phone: [facility] 06-11-2022 11:41-0400 Heart rate 81 /min Eleanor Bicanovsky DO Work Phone: [facility] 06-11-2022 11:41-0400 Systolic blood pressure 123 mm[Hg] Eleanor Bicanovsky DO Work Phone: [facility] 01-01-2022 19:31-0500 Body temperature 97.88 [degF] Ladarius Mack [facility] 01-01-2022 19:31-0500 Diastolic blood pressure 73 mm[Hg] Ladarius Mack [facility] 01-01-2022 19:31-0500 Heart rate 74 /min Ladarius Mack [facility] 01-01-2022 19:31-0500 Respiratory rate 18 /min Ladarius Mack [facility] 01-01-2022 19:31-0500 SaO2% (BldA) [Mass fraction] 99 % Ladarius Mack [facility] 01-01-2022 19:31-0500 Systolic blood pressure 138 mm[Hg] Ladarius Mack [facility] 12-17-2021 15:12-0500 Diastolic blood pressure 72 mm[Hg] Dulce Serrano APRN.[employer] Work Phone: [facility] 12-17-2021 15:12-0500 Heart rate 89 /min Dulce Serrano AERIAL SURVEY TECHNICIAN.[employer] HAND Work Phone: [facility] 12-17-2021 15:12-0500 SaO2% (BldA) [Mass fraction] 99 % Dulce Serrano AERIAL SURVEY TECHNICIAN.[employer]LL PR[employer] HAND Work Phone: [facility] 12-17-2021 15:12-0500 Systolic blood pressure 127 mm[Hg] Dulce Serrano APRN.[employer] HAND Work Phone: [facility] 11-29-2021 09:51-0400 Body temperature 98.6 [degF] Theron Paieg [facility] 11-29-2021 09:51-0400 Diastolic blood pressure 95 mm[Hg] Theron Paige [facility] 11-29-2021 09:51-0400 Heart rate 69 /min Theron Paige [facility] 11-29-2021 09:51-0400 Respiratory rate 16 /min Theron Paige [facility] 11-29-2021 09:51-0400 SaO2% (BldA) [Mass fraction] 98 % Theron Paige [facility] 11-29-2021 09:51-0400 Systolic blood pressure 132 mm[Hg] Theron Piage [facility] 09-17-2021 12:41-0400 Diastolic blood pressure 60 mm[Hg] Aristeo Jimenez APRN.[employer] HAND Work Phone: [facility] 09-17-2021 12:41-0400 Heart rate 80 /min Aristeo Jimenez APRN.[employer] HAND Work Phone: [facility] 09-17-2021 12:41-0400 SaO2% (BldA) [Mass fraction] 100 % Aristeo Jimenez APRN.[employer] PR[employer] HAND Work Phone: [facility] 09-17-2021 12:41-0400 Systolic blood pressure 130 mm[Hg] Aristeo Jimenez APRN.DRILL PR[employer] HAND Work Phone: [facility] Encounters Encounter Date Encounter Type Care Provider Facility Start: 06-02-2023 End: 06-02-2023 [facility] LUIS F BARRAZA Facility:[facility] Start: 05-25-2023 End: 05-27-2023 Evaluation and management of inpatient Farhat M Hoy Facility:[facility] Start: 05-25-2023 Evaluation and manag ement of inpatient MD Farhat Pineda Work Phone: [facility] Work Phone: Start: 05-03-2023 End: 05-03-2023 ambulatory DAVIN DOWLING Facility:[facility] Start: 05-03-2023 End: 05-03-2023 Subsequent hospital visit by physician Mika Hernandez MD Work Phone: Gastroenterology Comment on above: Dysphagia, unspecifi ed type [R13.10] Start: 04-30-2023 Telephone encounter Krista calvo DO Work Phone: Pain Management Comment on above: Appointment (Pain) Start: 04-26-2023 Telephone encounter Sara Storm VACUUM COOKER OPERATOR Work Phone: Endocrinology Comment on above: Ambulatory Social Wo rk Appointment Start: 04-23-2023 End: 04-23-2023 ambulatory [facility]AT [facility] Start: 04-23-2023 End: 04-23-2023 ambulatory Latanya Peralta CCC-CHECK PROCESSING CLERK Work Phone: [facility] Speech Therapy Comment on above: Dysphagia, unspecifi ed type (Primary Dx) Start: 04-23-2023 End: 04-23-2023 Subsequent hospital visit by physician Gi/Gu [facility] Work Phone: [facility] Radiology Gastrointestinal Comment on above: Dysphagia, unspecifi ed type [R13.10] Start: 04-22-2023 Telephone encounter Sara Storm VACUUM COOKER OPERATOR Work Phone: Endocrinology Comment on above: Ambulatory Social Wo rk Start: 04-21-2023 Telephone encounter Sara Storm VACUUM COOKER OPERATOR Work Phone: Endocrinology Comment on above: Ambulatory Social Wo rk Start: 04-17-2023 MC Get Medical Advice Bud Ca AERIAL SURVEY TECHNICIAN.DRILL PRESS HAND Work Phone: Endocrinology Comment on above: Trulicity Refill dos e Start: 04-15-2023 End: 04-15-2023 ambulatory Alana Snell AERIAL SURVEY TECHNICIAN.DRILL PR[employer] HAND Work Phone: Pain Management Comment on above: Pain Questionnaire Start: 04-15-2023 E-mail encounter fro leatha caregiver Alana Snell AERIAL SURVEY TECHNICIAN.DRILL PR[employer] HAND Work Phone: [facility] Start: 04-15-2023 Telephone encounter Shruthi Rosales RT(R ) Radiology Comment on above: Appointment Nausea (Primary Dx) LMTCB Start: 04-15-2023 End: 04-15-2023 Subsequent hospital visit by physician Ashley Rust Radiology Comment on above: Nausea [R11.0] Start: 04-14-2023 Telephone encounter Bud Ca AERIAL SURVEY TECHNICIAN.DRILL PRESS HAND Work Phone: Endocrinology Comment on above: Returning Patient's Call Patient Question Nausea (Primary Dx); Abdominal pain, unspecified abdominal location Start: 04-07-2023 ambulatory Krista E Girgi s DO Work Phone: Pain Management Comment on above: PAIN QUESTIONNAIRE Start: 04-07-2023 E-mail encounter fro m caregiver Krista E Krista DO Work Phone: [facility] Start: 04-02-2023 ambulatory Lizzie emery MD Work Phone: Endocrinology Comment on above: labs Start: 04-02-2023 E-mail encounter fro m caregiver Lizzie Leavitt MD Work Phone: [facility] Start: 04-02-2023 Telephone encounter Sara HIRSCHW Work Phone: Endocrinology Comment on above: Ambulatory Social Wo rk Start: 04-01-2023 End: 04-01-2023 ambulatory Jimmy Feliciano RT(R) Radiology Comment on above: Radiology XR Start: 04-01-2023 End: 04-01-2023 Patient encounter procedure Jimmy Feliciano RT(R) [facility] Comment on above: Cervical radiculopat hy (Primary Dx); Acute pain of left shoulder; Neck pain Start: 03-31-2023 Telephone encounter Sara Jennifer VACUUM COOKER OPERATOR Work Phone: Endocrinology Comment on above: Ambulatory Social Wo rk Start: 03-29-2023 End: 03-30-2023 ambulatory LIZZIE LEAVITT Facility:[facility] Start: 03-26-2023 Telephone encounter Sara Storm VACUUM COOKER OPERATOR Work Phone: Endocrinology Comment on above: Ambulatory Social Wo rk Start: 03-26-2023 End: 03-27-2023 ambulatory PA-C JUAN MASON Facility:[facility] Start: 03-26-2023 End: 03-26-2023 Patient encounter procedure JUAN MASON [facility] Start: 03-24-2023 Telephone encounter Sara Storm VACUUM COOKER OPERATOR Work Phone: Endocrinology Comment on above: Ambulatory Social Wo rk Start: 03-22-2023 End: 03-22-2023 ambulatory ADILENE ORDOÑEZ Facility:[facility] Start: 03-22-2023 End: 03-22-2023 ambulatory Adilene Ordoñez AERIAL SURVEY TECHNICIAN.DRILL PRESS HAND Work Phone: Gastroenterology Comment on above: Dysphagia, unspecifi ed type (Primary Dx) Start: 03-22-2023 End: 03-22-2023 Telemedicine consultation with patient Adilene Ordoñez AERIAL SURVEY TECHNICIAN.DRILL PRESS HAND Work Phone: [facility] Start: 03-10-2023 ambulatory Prince Tucker Facility:[facility] Start: 03-10-2023 Registered Recurring MD Deidre Pineda Work Phone: [facility] Start: 02-08-2023 End: 02-08-2023 Emergency department patient visit Candice Sifuentes Facility:[facility] Start: 02-07-2023 End: 02-08-2023 Emergency department patient visit MD Farhat Pineda Work Phone: [facility] Work Phone: Start: 02-05-2023 End: 02-05-2023 ambulatory BIPIN NINA Facility:[facility] Start: 01-18-2023 Telephone encounter Pacc Lorai n 2 Work Phone: Pre Anesthesia Comment on above: Appointment Confirma tion Start: 01-14-2023 End: 01-14-2023 Emergency department patient visit Ladarius Mack Facility:[facility] Start: 01-14-2023 End: 01-14-2023 Emergency department patient visit Ladarius Mack [facility] Start: 01-13-2023 Telephone encounter Pacc Lorai n 1 Work Phone: Pre Anesthesia Comment on above: Missed Appointment Start: 01-09-2023 End: 01-09-2023 Emergency department patient visit Bipin Roth Jr Facility:[facility] Start: 01-09-2023 End: 01-09-2023 Emergency department patient visit MD Farhat Pineda Work Phone: [facility] Work Phone: Start: 01-05-2023 End: 01-05-2023 ambulatory ELEANOR KENNY Facility:[facility] Start: 01-05-2023 End: 01-05-2023 Patient encounter procedure Eleanor Kenny DO Work Phone: CB/Gynecology Comment on above: Abnormal uterine ble eding due to endometrial polyp (Primary Dx); Counseling for control, intrauterine device; Postmenopausal bleeding Start: 12-30-2022 End: 12-30-2022 ambulatory FARHAT PINEDA Facility:[facility] Start: 12-28-2022 Admission to [facility] Eleanor Kenny DO Work Phone: CB/Gynecology Comment on above: Surgery timing Start: 12-28-2022 ambulatory Eleanor Kenny DO Work Phone: [facility] Start: 12-23-2022 ambulatory Lizzie emery MD Work Phone: Endocrinology Comment on above: labs Start: 12-23-2022 E-mail encounter fro m caregiver Lizzie Leavitt MD Work Phone: [facility] Start: 12-22-2022 End: 12-23-2022 ambulatory LIZZIE LEAVITT Facility:[facility] Start: 12-22-2022 End: 12-22-2022 Periodic preventive med est patient 18-39 yrs Pac [place] 2 Work Phone: Pre Anesthesia Comment on above: Pre-op evaluation (P rimary Dx); TALIA (obstructive sleep apnea); Gastroesophageal reflux disease without esophagitis; Type 2 diabetes mellitus without complication, without long-term current use of insulin (HCC); Micropapillary carcinoma of thyroid (3 mm); Anxiety; Class 2 severe obesity due to excess calories with serious comorbidity and body mass index (BMI) of 38.0 to 38.9 in adult Start: 12-22-2022 End: 12-22-2022 Preprocedural examination done [facility] Hill 2 Work Phone: [facility] Work Phone: Start: 12-21-2022 Telephone encounter [facility] Akanksha hernandez 2 Work Phone: Pre Anesthesia Comment on above: Missed Appointment Start: 12-02-2022 Refill Marichuy santana MD Work Phone: Ophthalmology Comment on above: Refill Request Start: 12-01-2022 ambulatory Dulce Serrano APRN.DRILL PRESS HAND Work Phone: Neurology Comment on above: Sleep supplies Start: 11-30-2022 End: 11-30-2022 ambulatory BIPIN NINA Facility:[facility] Start: 11-30-2022 End: 11-30-2022 Patient encounter procedure Bipin Nina APRN.DRILL PRESS HAND Work Phone: Endocrinology Comment on above: Type 2 diabetes cain itus with hyperglycemia, without long-term current use of insulin (HCC) (Primary Dx); Type 2 diabetes mellitus with hypoglycemia without coma, without long-term current use of insulin (HCC); Class 3 severe obesity with serious comorbidity and body mass index (BMI) of 40.0 to 44.9 in adult, unspecified obesity type (HCC); History of dumping syndrome; TALIA (obstructive sleep apnea) Start: 11-26-2022 End: 11-26-2022 ambulatory THADDEUS DIGGS Facility:[facility] Start: 11-26-2022 End: 11-26-2022 Patient encounter procedure Thaddeus Diggs MD Work Phone: Neurology Comment on above: 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 of 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 ea (Primary Dx); Cognitive complaints Start: 11-24-2022 End: 11-25-2022 ambulatory Dulce Serrano APRN.[employer]RILL PR[employer] HAND Work Phone: Neurology Comment on above: TALIA (obstructive sle ep apnea) (Primary Dx); Chronic insomnia; Psychophysiological insomnia; Rheumatoid arthritis of multiple sites without rheumatoid factor ([facility]); Type 2 diabetes mellitus without complication, without long-term current use of insulin ([facility]); Anemia, unspecified type; Chronic lymphocytic thyroiditis; Fibromyalgia; Obesity, Class I, BMI 30-34.9; Gastroesophageal reflux disease without esophagitis; Type 2 diabetes mellitus without retinopathy ([facility]); Dysmetabolic syndrome X Start: 11-24-2022 End: 11-24-2022 Telemedicine consultation with patient Dulce Serrano APRN.DRILL PRESS HAND Work Phone: [facility] Start: 11-15-2022 ambulatory Lizzie emery MD Work Phone: Endocrinology Comment on above: Thyroid US yuli m apping Start: 11-13-2022 End: 11-13-2022 ambulatory THADDEUS DIGGS Facility:[facility] Start: 11-13-2022 End: 11-13-2022 Patient encounter procedure Thaddeus Diggs MD Work Phone: Neurology Comment on above: Cognitive complaints (Primary Dx); History of gastric bypass; Sleep apnea, unspecified type Start: 11-12-2022 ambulatory FARHAT PINEDA Facility: [facility] Start: 11-12-2022 End: 11-12-2022 Subsequent hospital visit by physician Armond [facility] Work Phone: [facility] Radiology Ultrasound Comment on above: 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] Start: 10-28-2022 Orders Only Bud Dick Ca AERIAL SURVEY TECHNICIAN.DRILL PRESS HAND Work Phone: Endocrinology Comment on above: Type 2 diabetes cain itus with hypoglycemia without coma, without long-term current use of insulin (HCC) Start: 10-27-2022 Documentation procedure Mammog ruth Coordinator [facility] Start: 10-27-2022 Letter encounter Mammography Coordinator [facility] Department Start: 10-27-2022 End: 10-27-2022 ambulatory FARHAT PINEDA Facility:[facility] Start: 10-27-2022 End: 10-27-2022 Subsequent hospital visit by physician [facility] Comment on above: Encounter for screen ing mammogram for malignant neoplasm of breast [Z12.31] Start: 10-26-2022 End: 10-26-2022 ambulatory Bipin Nina AERIAL SURVEY TECHNICIAN.DRILL PRESS HAND Work Phone: Endocrinology Comment on above: Medication / dosage Medication / dose Start: 10-23-2022 End: 10-23-2022 ambulatory FARHAT PINEDA Facility:[facility] Start: 10-23-2022 End: 10-23-2022 Patient encounter procedure Dariel Le MD Work Phone: Cardiology Comment on above: Preop cardiovascular exam (Primary Dx); Prediabetes; TALIA (obstructive sleep apnea); Obesity, Class II, BMI 35-39.9 Start: 10-23-2022 End: 10-23-2022 Patient encounter status Dariel Le MD Work Phone: [facility] Work Phone: Start: 10-23-2022 Telephone encounter Luis F solis AERIAL SURVEY TECHNICIAN.DRILL PRESS HAND Work Phone: Cardiology Comment on above: Appointment Start: 10-09-2022 End: 10-10-2022 ambulatory LIZZIE LEAVITT Facility:[facility] Start: 10-09-2022 Encounter for other preprocedural examination LUIS F BARRAZA [facility] Start: 10-06-2022 End: 10-06-2022 ambulatory ELEANOR KENNY Facility:[facility] Start: 10-06-2022 Encounter for other preprocedural examination ELEANOR KENNY [facility] Start: 10-06-2022 End: 10-06-2022 Admission to establishment Pac [address] 2 Work Phone: [facility] Start: 10-06-2022 End: 10-06-2022 ambulatory [facility] 2 Work Phone: Pre Anesthesia Comment on above: Pre-op examination ( Primary Dx); Morbid obesity (HCC); TALIA (obstructive sleep apnea); Type 2 diabetes mellitus without complication, without long-term current use of insulin (HCC) Start: 10-06-2022 End: 10-06-2022 Preprocedural examination done Pac 2 Work Phone: [facility] Work Phone: Start: 10-06-2022 Telephone encounter Norm Hanna PA-C Work Phone: Pre Anesthesia Comment on above: Pre-Op Exam (increas ed palpations pre op recommendations and optimization ) Start: 10-02-2022 End: 10-02-2022 ambulatory FARHAT PINEDA Facility:[facility] Start: 10-02-2022 End: 10-02-2022 Patient encounter procedure Eleanor Kenny DO Work Phone: CB/Gynecology Comment on above: Postmenopausal bleed ing (Primary Dx); Ovarian cyst, left; Abnormal endometrial ultrasound; Thickened endometrium; History of cervical dysplasia Start: 09-30-2022 End: 09-30-2022 ambulatory Lizzie Leavitt MD Work Phone: Endocrinology Comment on above: Hx of papillary thyr oid carcinoma (Primary Dx); Vitamin D insufficiency; Hypoglycemia; Diabetes mellitus type 2 (HCC) Start: 09-30-2022 End: 09-30-2022 Telemedicine consultation with patient Lizzie Leavitt MD Work Phone: [facility] Start: 09-29-2022 End: 09-30-2022 ambulatory FARHAT Leatha Edu Facility:[facility] Start: 09-29-2022 End: 09-29-2022 Patient encounter procedure Eleanor Kenny DO Work Phone: CB/Gynecology Comment on above: No-show for appointm ent (Primary Dx) Start: 09-29-2022 End: 09-29-2022 Telemedicine consultation with patient Eleanor Kenny DO Work Phone: [facility] Start: 09-28-2022 Chart abstracting [facility] Work Phone: Neurology Comment on above: CMN Start: 09-16-2022 Telephone encounter Eleanor Kenny DO Work Phone: CB/Gynecology Comment on above: Scheduling Start: 09-10-2022 End: 09-10-2022 ambulatory JANENE HARRISON Facility:[facility] Start: 09-10-2022 End: 09-10-2022 ambulatory Janene Harrison MD Work Phone: Obstetrics/Gynecology Start: 09-10-2022 End: 09-10-2022 Patient encounter procedure Janene Harrison MD Work Phone: [facility] Start: 09-07-2022 ambulatory Eleanor Kenny DO Work Phone: CB/Gynecology Comment on above: Post menopause bleed ing Start: 07-16-2022 End: 07-16-2022 ambulatory [address]IE RONALD [facility] Facility:[facility] Start: 07-13-2022 Get Medical Advice Dulce Serrano APRN.DRILL PRESS HAND Work Phone: Sleep Disorders Comment on above: Refill 10 mg zalepon Start: 07-05-2022 End: 07-06-2022 ambulatory Kathleen Cho RN NURSE DESIGN ENG Comment on above: Patient Update Start: 07-05-2022 Telephone encounter Dannie brito MD Work Phone: [facility] Provider Adult Comment on above: Patient Update Start: 06-30-2022 End: 06-30-2022 ambulatory BIPIN NINA Facility:[facility] Start: 06-30-2022 E-mail encounter fro m caregiver [facility] Provider [facility] Start: 06-30-2022 Patient encounter procedure [facility] Prov ider Diabetic Education Main X20 Comment on above: Message from [facility] Corporate Safety Coordinator and Dietitian, Nadia Start: 06-29-2022 ambulatory Bipin sanchez APRN.DRILL PRESS HAND Work Phone: Endocrinology Comment on above: Sugar levels Start: 06-24-2022 End: 06-25-[address] FARHAT PINEDA . Facility: Start: 06-23-2022 End: 06-23-2022 ambulatory MARICHUY SUAREZ Facility:[facility] Start: 06-23-2022 End: 06-23-2022 Patient encounter procedure Marichuy Suarez MD Work Phone: Ophthalmology Comment on above: Dermatochalasis of b oth upper eyelids (Primary Dx); Myogenic ptosis of bilateral eyelids; Facial rhytids Start: 06-23-2022 End: 06-23-2022 ambulatory BIPIN NINA Facility:[facility] Start: 06-21-2022 ambulatory Lizzie emery MD Work Phone: Endocrinology Comment on above: Blood sugar levels Start: 06-16-2022 End: 06-16-2022 ambulatory LUIS F BARRAZA Facility:[facility] Start: 06-16-2022 End: 06-17-2022 ambulatory FARHAT PINEDA Facility:[facility] Start: 06-16-2022 End: 06-16-2022 Patient encounter procedure Luis F Barraza AERIAL SURVEY TECHNICIAN.DRILL PRESS HAND Work Phone: Cardiology Comment on above: PVC (premature ventr icular contraction) (Primary Dx); Palpitations; TALIA (obstructive sleep apnea); Localized edema Start: 06-15-2022 Telephone encounter Lizzie Leavitt MD Work Phone: Endocrinology Comment on above: Low Blood Sugars Start: 06-11-2022 End: 06-11-2022 Patient encounter status Eleanor Kenny DO Work Phone: CB/Gynecology Start: 06-11-2022 End: 06-11-2022 ambulatory ELEANOR KENNY Facility:[facility] Start: 06-11-2022 End: 06-11-2022 Patient encounter procedure Opal Pelayo Earle OD Work Phone: Ophthalmology Comment on above: Glaucoma suspect of both eyes (Primary Dx); Type 2 diabetes mellitus without retinopathy (HCC); Dermatochalasis of both upper eyelids; Other chronic allergic conjunctivitis of both eyes; Dry eye syndrome of bilateral lacrimal glands Encounter for gyneco logical examination with abnormal finding (Primary Dx); History of cervical dysplasia; Encounter for screening mammogram for malignant neoplasm of breast; Postmenopausal bleeding; Urinary frequency Start: 06-08-2022 End: 06-09-[address] FARHAT PINEDA . Facility:[facility] Start: 05-04-2022 Telephone encounter Dulce Qureshi APRN.DRILL PRESS HAND Work Phone: Neurology Comment on above: PAP Therapy Follow U p Start: 04-04-2022 Encounter for genera l adult medical examination without abnormal findings DR FARHAT PINEDA . [facility] Start: 04-02-2022 End: 04-03-[address] FARHAT PINEDA . Facility:[facility] Start: 04-01-2022 End: 04-01-[address] FARHAT PINEDA . Facility:[facility] Start: 04-01-2022 End: 04-01-2022 Encounter for general adult medical examination without abnormal findings DR FARHAT PINEDA . Facility:[facility] Start: 03-31-2022 End: 04-01-[address] FARHAT PINEDA . Facility:[facility] Start: 03-30-2022 Refill Dulce Serrano APRN.DRILL PRESS HAND Work Phone: Sleep Disorders Comment on above: Refill Request Start: 02-16-2022 End: 02-16-[address] FARHAT PINEDA . Facility:[facility] Start: 01-29-2022 [facility] Work Phone: Neurology Comment on above: CMN Start: 01-24-2022 End: 01-24-2022 ambulatory ARIADNE ANNE . Facility:[facility] Start: 01-22-2022 Telephone encounter Opal Aj DO Work Phone: Neurology Comment on above: Lab Results CC Start: 01-21-2022 End: 01-21-2022 Patient encounter procedure Terrell Mayo PA-C Work Phone: Orthopaedics Comment on above: Chondromalacia leavitt lae of left knee (Primary Dx); Patellar tendonitis of left knee Start: 01-12-2022 Telephone encounter Opal Aj DO Work Phone: Neurology Comment on above: CMN Start: 01-08-2022 End: 01-08-2022 ambulatory Opal Aj Work Phone: Neurology Comment on above: Psychophysiological insomnia (Primary Dx); TALIA (obstructive sleep apnea); Fibromyalgia; Rheumatoid arthritis of multiple sites without rheumatoid factor (HCC); Gastroesophageal reflux disease without esophagitis; Dysmetabolic syndrome X; Chronic lymphocytic thyroiditis; Anemia, unspecified type; Type 2 diabetes mellitus without complication, without long-term current use of insulin (HCC); Vitamin B12 deficiency (dietary) anemia; Class 2 obesity with body mass index (BMI) of 38.0 to 38.9 in adult, unspecified obesity type, unspecified whether serious comorbidity present; Mitral and aortic valve regurgitation; Secondary osteoarthritis of multiple sites; Deficiency anemia Start: 01-08-2022 End: 01-08-2022 Telemedicine consultation with patient Opal Aj Work Phone: [facility] Start: 01-06-2022 End: 01-07-[address] FARHAT PINEDA . Facility:[facility] Start: 01-01-2022 End: 01-01-2022 Emergency department patient visit Ladarius Mack [facility] Start: 12-29-2021 Telephone encounter Opal Santana Aj (Histor) Work Phone: Neurology Comment on above: PAP Therapy Follow U p (DOWNLOAD) Start: 12-25-2021 End: 12-26-[address] FARHAT PINEDA . Facility:[facility] Start: 12-17-2021 End: 12-17-2021 Patient encounter procedure Dulce Serrano APRN.[employer] Work Phone: Sleep Disorders Comment on above: TALIA (obstructive sle ep apnea) (Primary Dx); Chronic insomnia; PIETRO (generalized anxiety disorder); Fibromyalgia; Vitamin B12 deficiency (dietary) anemia; Rheumatoid arthritis of multiple sites without rheumatoid factor (HCC); Dysmetabolic syndrome X; Class 2 obesity with body mass index (BMI) of 38.0 to 38.9 in adult, unspecified obesity type, unspecified whether serious comorbidity present; Other insomnia Start: 12-12-2021 Refill Mahogany Reyes APRN.CNP Work Phone: Neurology Comment on above: Refill Request Start: 12-01-2021 Telephone encounter Cata Moralez RN Work Phone: Neurology Comment on above: Insurance Authorizat ion ([place] for zaleplon 5 mg) Start: 11-29-2021 End: 11-29-2021 Emergency department patient visit Theron Grecia [facility] Start: 10-30-2021 Telephone encounter Cata Moralez RN Work Phone: Neurology Comment on above: Medication Problem Start: 10-17-2021 End: 10-17-2021 [facility] Marlene Lazcano PhD Work Phone: Neurology Comment on above: Chronic insomnia (Pr imary Dx); PIETRO (generalized anxiety disorder); Post-acute sequelae of COVID-19 (PASC) Start: 09-19-2021 Telephone encounter [facility] Work Phone: Neurology Comment on above: PAP Therapy Follow U p Start: 09-19-2021 End: 09-19-2021 Patient encounter procedure Ibrahima Cobb MD Work Phone: Orthopaedics Comment on above: Nontraumatic complet e tear of right rotator cuff (Primary Dx); Impingement syndrome of right shoulder Start: 09-17-2021 End: 09-17-2021 Telemedicine consultation with patient Marlene Lazcano PhD Work Phone: [facility] Start: 09-17-2021 End: 09-17-2021 ambulatory Marta Pratt RT(R) Radiology Comment on above: Radiology MRI PIETRO (generalized anx iety disorder) (Primary Dx); Chronic insomnia Start: 09-17-2021 Chart abstracting Farhat jones MD Work Phone: Family Medicine [place] Comment on above: ERT (Patient had MRI today and felt dizzy/lightheaded afterwards. Could not drive self home. ) Start: 09-17-2021 End: 09-17-2021 Patient encounter procedure Marta Pratt RT(R) [facility]TH [place] Comment on above: Vertigo (Primary Dx) Start: 09-16-2021 Orders Only Ibrahima Pierce Work Phone: Orthopaedics Comment on above: Right shoulder pain, unspecified chronicity (Primary Dx) Start: 09-12-2021 Telephone encounter Cata Moralez RN Work Phone: Neurology Comment on above: Call Center Director - O ther (clairfy medications ) Start: 09-10-2021 End: 09-10-2021 [facility] Marlene Lazcano PhD Work Phone: Sleep Psychology Comment on above: Chronic insomnia (Pr imary Dx); PIETRO (generalized anxiety disorder); Post-acute sequelae of COVID-19 (PASC) Medication renewal Start: 09-05-2021 End: 09-05-2021 ambulatory Lorenzo Perry DO Work Phone: Rheumatology Comment on above: Traumatic complete t ear of right rotator cuff, subsequent encounter (Primary Dx) Start: 09-05-2021 End: 09-05-2021 Telemedicine consultation with patient Lorenzo Perry DO Work Phone: [facility] Start: 09-01-2021 End: 09-02-2021 ambulatory GONZALO LYONS Facility: Start: 08-25-2021 End: 08-25-2021 [facility] Gloria Snell [facility] Work Phone: [facility] Comment on above: Generalized anxiety disorder (Primary Dx) Start: 08-07-2021 Telephone encounter Dulce Qureshi AERIAL SURVEY TECHNICIAN.[employer] Work Phone: Neurology Comment on above: PAP Therapy Follow U p (NEED MACHINE OR SD CHIP TO BE SENT TO DME) Start: 08-04-2021 Refill Mahgoany Reyes APRN.CNP Work Phone: Neurology Comment on above: Refill Request Start: 07-28-2021 End: 07-29-[address] FARHAT PINEDA . Facility: Start: 07-04-2021 Refill Marlene Lazcano Ph D Work Phone: [facility] [place] Comment on above: Refill Request Start: 05-12-2021 End: 05-12-2021 [facility] Gloria Snell [facility] Work Phone: [facility] Comment on above: Generalized anxiety disorder (Primary Dx) Start: 05-08-2021 End: 05-08-2021 Patient encounter procedure Freedom Cee MD Work Phone: Pain Management Comment on above: NO SHOW (Primary Dx) Start: 05-05-2021 End: 05-05-2021 ambulatory Gloria Snell [facility] Work Phone: [facility] Comment on above: NO SHOW (Primary Dx) Start: 05-05-2021 End: 05-05-2021 Telemedicine consultation with patient Gloria Snell [facility] Work Phone: [facility] Start: 01-08-2021 End: 01-08-2021 Subsequent hospital visit by physician Mri [facility] (Lg Bore/1.5t) Radiology MRI Comment on above: Chronic right should er pain [M25.511, G89.29] Start: 12-27-2020 End: 12-27-2020 Subsequent hospital visit by physician Xr [facility] Comment on above: Rheumatoid arthritis of multiple sites without rheumatoid factor (HCC) [M06.09] Start: 11-21-2020 End: 11-21-2020 Subsequent hospital visit by physician Xr [facility] Comment on above: Chronic neck pain [M 54.2, G89.29] Start: 03-05-2016 End: 03-06-2016 ambulatory JANE DIAZ Facility:[facility] Procedures Date Procedure Procedure Detail Performing Clinician Start: 05-03-2023 Gluc bld gluc mntr d ev cleared fda spec home use Davin Dowling MD Work Phone: Start: 05-03-2023 Esophagoscp rig stevens soral hypopharynx crv esoph Adilene Ordoñez AERIAL SURVEY TECHNICIAN.[employer] Work Phone: Start: 04-23-2023 Radiologic exam swal low function contrast study Adilene Ordoñez AERIAL SURVEY TECHNICIAN.[employer] Work Phone: Start: 04-15-2023 Ct abdomen & pelvis w/o contrast material Adilene Ordoñez AERIAL SURVEY TECHNICIAN.[employer] Work Phone: Start: 11-30-2022 Gluc bld gluc mntr d ev cleared fda spec home use Bipin Nina AERIAL SURVEY TECHNICIAN.[employer] Work Phone: Start: 11-30-2022 Hemoglobin A1c/Hemoglobin.total in Blood Bipin Nina AERIAL SURVEY TECHNICIAN.[employer] Work Phone: Start: 11-12-2022 Us soft tissue head & neck real time imge docm Lizzie Leavitt MD Work Phone: Start: 09-10-2022 Us pelvic nonobstetr ic real-time image complete Eleanor Kenny DO Work Phone: Start: 06-23-2022 Visual field xm uni/ bi w/interp intermed exam Chepe Shea AERIAL SURVEY TECHNICIAN.[employer] Work Phone: Start: 06-11-2022 Cytp c/v auto thin l yr prepj scr mnl rescr phys Eleanor Kenny DO Work Phone: Start: 06-11-2022 Iadna human papillom avirus high-risk types Eleanor Kenny DO Work Phone: Start: 06-11-2022 Computerized ophthal diane imaging optic nerve Opal Og OD Work Phone: Start: 06-11-2022 Urnls dip stick/tabl et rgnt auto w/o microscopy Eleanor Kenny DO Work Phone: Start: 10-17-2021 Adult depression scr eening assessment Marlene Lazcano PhD Work Phone: Start: 09-10-2021 Adult depression scr eening assessment Marlene Lazcano PhD Work Phone: Start: 01-08-2021 Mri any jt upper ext remity w/o contrast matrl Lorenzo Perry DO Work Phone: Start: 12-27-2020 End: 12-27-2020 Joint survey single view 2 or more joints Lorenzo Perry DO Work Phone: Start: 11-21-2020 Radex spine cervical 4 or 5 views Latanya Clifford APRN.[employer] Work Phone: Start: 11-08-2020 Adult depression scr eening assessment Gloria Snell [facility] Work Phone: Start: 10-13-2017 Colonoscopy Gloria Snell [facility] Work Phone: Start: 06-30-2017 Cystoscopy Theron Dorantes [employer] Comment on above: CYSTOSCOPY; LEFT RET ROGRADE; LEFT STENT INSERTION; HOMIUM LASER Bilateral tubal ligation Ricky Paige Bypass of stomach Theron jean baptiste Cholecystectomy Theron Paige GI series 2 Theron Paige Comment on above: 09/2013 ? Hernia repair Theron Paige Hernia repair Theron Paige History of cholecystectomy gallbladder parnell rgery Theron Paige History of thyroidectomy Ricky Paige Comment on above: pt states the sx was performed and bx was obtained, but upon US 6months after sx, thyroid was still present. stomach surgeries, multipule 4 Theron Paige Comment on above: pt states i was bor n with now diaphragm Plan of Treatment Date Care Activity Detail Author Start: 08-27-2030 Urine microalbumin profile [facility] Start: 06-12-2027 HPV TESTING HPV TESTING [facility] Start: 06-12-2027 PAP TESTING PAP TESTING [facility] Start: 06-12-2027 Screening for malign ant neoplasm of cervix [facility] Start: 12-23-2023 Hepatitis B screening Urine Al bumin:Creatinine Ratio [facility] Start: 12-23-2023 Hepatitis B surface antibody level LDL Cholesterol [facility] Start: 10-28-2023 Mammography Mammogram Screening [facility] Start: 10-28-2023 Screening for malign ant neoplasm of breast Mammogram Screening [facility] Start: 09-27-2023 Hemoglobin A1c measurement HbA1C [facility] Start: 06-24-2023 3 comp foot exam completed DIABETIC FOOT EXAM [facility] Start: 06-24-2023 Diabetic foot examination Diabetic Foot Exam [facility] Start: 06-12-2023 Glaucoma screening Dilated Retinal E xam [facility] Start: 06-12-2023 Hepatitis C antibody , confirmatory test DILATED RETINAL EXAM [facility] Start: 06-01-2023 Hemoglobin A1c measurement HbA1C [facility] Start: 06-01-2023 Hemoglobin A1c/Hemoglobin.total in Blood HbA1C [facility] Start: 03-25-2023 End: 06-24-2023 25-hydroxyvitamin D3 [Mass/volume] in Serum or Plasma VITAMIN D 25 HYDROXY Lab Routine Vitamin D insufficiency Expected: 03/25/2023, Expires: 06/24/2023 [facility] Work Phone: Comment on above: Expected: 03/25/2023 , Expires: 06/24/2023 Start: 03-25-2023 End: 06-21-2023 Thyrotropin [Units/volume] in Serum or Plasma TSH BLD Lab Routine 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 Expected: 03/25/2023, Expires: 06/21/2023 [facility] Work Phone: Comment on above: Expected: 03/25/2023 , Expires: 06/21/2023 Start: 02-08-2023 Depression Assessment Depression Ass essment [facility] Start: 02-07-2023 Plain chest X-ray XR chest 2V* [facility] Start: 12-31-2023 XR Chest 2 Views [facility] Start: 01-10-2023 HPV TESTING HPV TESTING [facility] Start: 01-10-2023 PAP TESTING PAP TESTING [facility] Start: 12-17-2022 Hemoglobin A1c/Hemoglobin.total in Blood HBA1C [facility] Start: 11-30-2022 End: 03-01-2023 ALBUMIN/CREAT RATIO RND UR ALBUMIN/CREAT RATIO RND UR Lab Routine Type 2 diabetes mellitus with hyperglycemia, without long-term current use of insulin (HCC) Expected: 11/30/2022, Expires: 03/01/2023 [facility] Work Phone: Comment on above: Expected: 11/30/2022 , Expires: 03/01/2023 Start: 11-30-2022 End: 03-01-2023 Lipid 1996 panel - Serum or Plasma LIPID PANEL BASIC Lab Routine Type 2 diabetes mellitus with hyperglycemia, without long-term current use of insulin (HCC) Expected: 11/30/2022, Expires: 03/01/2023 [facility] Work Phone: Comment on above: Expected: 11/30/2022 , Expires: 03/01/2023 Start: 11-13-2022 End: 01-13-2023 25-hydroxyvitamin D3 [Mass/volume] in Serum or Plasma VITAMIN D 25 HYDROXY Lab Routine History of gastric bypass Cognitive complaints Expected: 11/13/2022, Expires: 01/13/2023 [facility] Work Phone: Comment on above: Expected: 11/13/2022 , Expires: 01/13/2023 Start: 11-13-2022 End: 01-13-2023 Cobalamin (Vitamin B12) [Mass/volume] in Serum or Plasma VITAMIN B12 BLOOD Lab Routine History of gastric bypass Cognitive complaints Expected: 11/13/2022, Expires: 01/13/2023 [facility] Work Phone: Comment on above: Expected: 11/13/2022 , Expires: 01/13/2023 Start: 11-13-2022 End: 01-13-2023 Ferritin [Mass/volume] in Serum or Plasma FERRITIN BLD Lab Routine History of gastric bypass Cognitive complaints Expected: 11/13/2022, Expires: 01/13/2023 [facility] Work Phone: Comment on above: Expected: 11/13/2022 , Expires: 01/13/2023 Start: 11-13-2022 End: 01-13-2023 Pyridoxine [Mass/volume] in Serum or Plasma VITAMIN B6/PYRIDOXIN Lab Routine History of gastric bypass Cognitive complaints Expected: 11/13/2022, Expires: 01/13/2023 [facility] Work Phone: Comment on above: Expected: 11/13/2022 , Expires: 01/13/2023 Start: 11-13-2022 End: 01-13-2023 VITAMIN B1 (THIAMINE), WHOLE BLOOD VITAMIN B1 (THIAMINE), WHOLE BLOOD Lab Routine History of gastric bypass Cognitive complaints Expected: 11/13/2022, Expires: 01/13/2023 [facility] Work Phone: Comment on above: Expected: 11/13/2022 , Expires: 01/13/2023 Start: 10-17-2022 Adult depression screening assessment DEPRESSION SCREENING [facility] Start: 10-09-2022 Covid-19 Vaccine ( season) Covid-19 Vaccine () [facility] Start: 10-09-2022 Influenza vaccination [facility] Start: 10-06-2022 End: 12-06-2022 Basic metabolic 2000 panel - Serum or Plasma BASIC METABOLIC PNL Lab Routine Pre-op examination Expected: 10/06/2022, Expires: 12/06/2022 [facility] Work Phone: Comment on above: Expected: 10/06/2022 , Expires: 12/06/2022 Start: 10-06-2022 End: 12-06-2022 CBC W Auto Differential panel - Blood CBC + DIFF Lab Routine Pre-op examination Expected: 10/06/2022, Expires: 12/06/2022 [facility] Work Phone: Comment on above: Expected: 10/06/2022 , Expires: 12/06/2022 Start: 10-06-2022 End: 12-06-2022 Natriuretic peptide.B prohormone N-Terminal [Mass/volume] in Serum or Plasma NT PRO BNP Lab Routine Pre-op examination Expected: 10/06/2022, Expires: 12/06/2022 [facility] Work Phone: Comment on above: Expected: 10/06/2022 , Expires: 12/06/2022 Start: 10-02-2022 End: 10-03-2023 PELVIC US I PELVIC US [facility] Anc Imaging Routine Ovarian cyst, left Expected: 10/02/2022, Expires: 10/03/2023 [facility] Work Phone: Comment on above: Expected: 10/02/2022 , Expires: 10/03/2023 Start: 09-30-2022 End: 11-30-2022 25-hydroxyvitamin D3 [Mass/volume] in Serum or Plasma VITAMIN D 25 HYDROXY Lab Routine Vitamin D insufficiency Expected: 09/30/2022, Expires: 11/30/2022 [facility] Work Phone: Comment on above: Expected: 09/30/2022 , Expires: 11/30/2022 Start: 09-30-2022 End: 11-30-2022 Cortisol [Mass/volume] in Serum or Plasma CORTISOL BLD Lab Routine Hypoglycemia Expected: 09/30/2022, Expires: 11/30/2022 [facility] Work Phone: Comment on above: Expected: 09/30/2022 , Expires: 11/30/2022 Start: 09-30-2022 End: 03-29-2023 Thyrotropin [Units/volume] in Serum or Plasma TSH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 (attached). Esme heard from staff members at [facility] that they filed a police report. Esme reports Tip called her on 03/17/2023, when she did not show up for the 03/16 appointment and Esme told Tip she is not interested in his services any more. Esme indicates Tip was not pushy and Esme thinks someone talked with him. Esme has not heard from Tip since 03/17/2023. I sent resources to Esme after we talked on 03/24/2023 and advised Esme to file a police report, not respond to any messages from Tip, and to call 911 if Tip comes to her home. I am submitting this mandated report in accordance with [place] Administrative Code 4757-5-10(A). I believe the following [place] Administrative Code, National Association of Social Workers Code of Ethics, and Health Information Portability and Accountability Act (HIPAA) provisions are in question due to Tip's behavior: 1. O.A.C. 4757-5-02(A)(5) requires licensees to only use certain types of practices with clients. 2. O.A.C. 4757-5-02(H) prohibits licensees from verbal abuse or threats to clients and not use derogatory language. 3. O.A.C. 4757-5-03(A)(3) prohibits licensees from having an exploitative relationship with clients. 4. [facility] Code of Ethics lists Integrity as a core Value and list behaving in a trustworthy manner as an Ethical Principle. 5. [facility] Code of Ethics Standard 1.06(b) advises social workers not to take unfair advantage of clients or exploit others for personal gain. 6. [facility] Code of Ethics Standard 1.07(a) advises social workers to respect a client's right to privacy and not solicit private information from clients unless there are compelling professional reasons. 7. [facility] Code of Ethics Standard 1.12 advises social workers to use respectful language in all communications. 8. HIPAA gas utility worker receives the following message after submission: Your Complaint has been submitted. Thank you, you have successfully submitted your complaint. The respective Board will be in contact regarding your submission. Please click Home to return to the [facility] Home Page. gas utility worker sends Patient a GuideSpark message with a copy of the text that was submitted and confirms the report has been filed with the licensure board. gas utility worker will keep Patient updated on progress. [facility] referral placed: No Signature: MICHELA Good LSW Patient Name: Esme Morfin Date: 04/26/2023 Time: 12:33 PM Pager/Contact #: [phone] During this patient contact I spent approximately 45 minutes in reviewing the patient's chart and counseling regarding community resources and coordinating care. documented in this encounter [facility] 04-23-2023 Note HNO ID: [id number] Author: LATANYA PERALTA CCC-CHECK PROCESSING CLERK Service: ? Author Type: Speech Language Pathologist Type: Progress Notes Filed: 04/23/2023 15:08 Note Text: Summary: MBSS Start of Care Date: 04/23/23 Onset Date: 04/22/22 [facility] MODIFIED BARIUM SWALLOW PLAN OF CARE: Impression: Patient presents with functional oral and pharyngeal swallowing abilities. Concern for esophageal dysphagia given symptoms of globus sensation and history of hiatal hernia. Patient is scheduled for follow-up with GI for EGD and esophagram. No further CHECK PROCESSING CLERK services appear warranted at this time. Evidence of: Functional oropharyngeal phases of swallow, without identified risk for aspiration, Concern for possible esophageal impairment An elevated risk for aspiration: No Swallow Efficiency: Preserved RECOMMENDATION: Diet Recommendations: Regular Consistency, Thin Liquids IDDSI Level 0 CHECK PROCESSING CLERK Recommendations: Diet, Discontinue Speech Therapy Recommended Consults: GI Goals for Modified Barium Swallow: created for 04/23/2023 only. The patient will be able to demonstrate adequate return of knowledge of today's fluoroscopic assessment and recommendations to maximize overall safety with oral intake. (baseline = no knowledge). GOAL MET 04/23/23 Planned Interventions, Frequency, and Duration: Discontinue therapy services SUBJECTIVE: Esme Morfin is a 47 year old female seen today for a Modified Barium Swallow (MBS) Study. Patient was pleasant and participated well in evaluation. Patient reported worsening of chronic dysphagia symptoms. Patient reported globus sensation with solids and pills, no difficulty with liquids. Patient endorsed recurring pneumonia (once per year), voice changes (described as raspy). Denied unintentional weight loss. Disussed that she is chewing he food then removing it from her mouth, CHECK PROCESSING CLERK encouraged her to discuss with a dietitian. Prior Swallowing Function/Diet Textures: Regular Consistency, Thin Liquids IDDSI Level 0 OBJECTIVE: MEASURES WITH LEVEL OF FUNCTION: Instrumental Swallow Assessment Type: Modified Barium Swallow Study Modified Barium Swallow Views: Lateral position, Anterior-posterior position Position Of Patient During Assessment: Upright In Chair, Standing Response to Consistencies Presented: Patient fed self. Previous Swallow Study: MBS (unable to obtain CHECK PROCESSING CLERK report) Barium Consistencies Provided: Thin Liquids, Mildly Thick Liquids ([place] Thick), Pureed Solids, Regular Solids, 13mm Tablet Oral Phase: As Follows Lip Closure: Escape from interlabial space or lateral juncture/no extension beyond liz border Tongue Control During Bolus Hold: Cohesive bolus between tongue to palatal seal Bolus Preparation/Mastication: Slow prolonged mastication with complete re-collection necessary Bolus Transport/Lingual Motion: Delayed initiation of tongue motion for A-P movement of the bolus Oral Residue: Residue collection on oral structure Initiation Of Pharyngeal Swallow: Bolus head at pit of pyriforms Pharyngeal Phase: As Follows Soft Palate Elevation: No bolus between soft palate/pharyngeal wall Laryngeal Elevation: Complete superior movement of thyroid cartilage with contact of arytenoids to epiglottic petiole Anterior Hyoid Excursion: Complete anterior movement Epiglottic Movement: Complete inversion Laryngeal Vestibular Closure/Height of the Swallow: Complete - no air/contrast in laryngeal vestibule Pharyngeal Stripping Wave: Present, however, diminished Pharyngeal Contraction (A/P View Only): Complete Pharyngoesophageal Segment Opening: Partial distension/partial duration with partial obstruction of flow of bolus (Reduced duration with collection of liquids and ejection back to pyriform sinuses) Tongue Base Retraction: Trace column of contrast or air between tongue base and pharyngeal wall Pharyngeal Residue: Trace residue within or on the pharyngeal structures Esophageal Clearance In An Upright Position: Esophageal retention (Barium tablet appeared to sit right above the stomach) Penetration: During the swallow Penetration With: Thin Liquids IDDSI Level 0 Penetration-Aspiration Scale for MBSS: Completed Penetration-Aspiration Scale (adapted from Jacquelin et al., 1996): Consistency Penetration/Aspiration Thin liquids via tsp and straw; Mildly-thick liquids; Puree; Regular PAS-1: Material does not enter airway. Thin liquids via cup PAS-2: Material enters airway, remains above the vocal folds, and is ejected from airway. PAS-3: Material enters airway, remains above vocal folds, and is not ejected from airway. PAS-4: Material enters airway, contacts vocal folds, and is ejected from airway. PAS-5: Material enters airway, co (more content not included)... [facility] 04-23-2023 Note HNO ID: [id number] Author: DARRELL AARON RT(R) Service: Radiology Author Type: Technologist Type: Progress Notes Filed: 04/23/2023 14:40 Note Text: Radiology Service Progress Note PATIENT NAME: Esme Morfin DATE OF SERVICE: April 23, 2023 TIME: 2:39 PM PATIENT IDENTITY VERIFICATION COMPLETED USING TWO (2) IDENTIFIERS: Name and Date of confirmed by patient verbally. FALL SCREENING: Has the patient had 2 falls in the last year or 1 fall with injury or currently using an Ambulatory Assistive Device (Walker, Cane, Wheelchair, Crutches, etc.)? No PATIENT GENDER DATA: Female. status: : No status: NO. PATIENT RELEVANT IMPLANT DATA REVIEWED: Not Applicable PATIENT PRESENTS WITH AN IMPLANTABLE OR ATTACHED UNIONMELT OPERATOR: No RADIOLOGY DEPARTMENT: General X-ray: Exam(s) Completed: GI/ Procedure(s): Modified barium swallow with barium contrast PERIPHERAL IV DATA: Not applicable SIGNED BY: RT Spring(R) April 23, 2023 2:39 PM [facility] 04-23-2023 History of Present illness Narrative Summary: MBSS Start of Care Date: 04/23/23 Onset Date: 04/22/22 [facility] MODIFIED BARIUM SWALLOW PLAN OF CARE: Impression: Patient presents with functional oral and pharyngeal swallowing abilities. Concern for esophageal dysphagia given symptoms of globus sensation and history of hiatal hernia. Patient is scheduled for follow-up with GI for EGD and esophagram. No further CHECK PROCESSING CLERK services appear warranted at this time. Evidence of: Functional oropharyngeal phases of swallow, without identified risk for aspiration, Concern for possible esophageal impairment An elevated risk for aspiration: No Swallow Efficiency: Preserved RECOMMENDATION: Diet Recommendations: Regular Consistency, Thin Liquids IDDSI Level 0 CHECK PROCESSING CLERK Recommendations: Diet, Discontinue Speech Therapy Recommended Consults: GI Goals for Modified Barium Swallow: created for 04/23/2023 only. The patient will be able to demonstrate adequate return of knowledge of today's fluoroscopic assessment and recommendations to maximize overall safety with oral intake. (baseline = no knowledge). GOAL MET 04/23/23 Planned Interventions, Frequency, and Duration: Discontinue therapy services SUBJECTIVE: Esme Morfin is a 47 year old female seen today for a Modified Barium Swallow (MBS) Study. Patient was pleasant and participated well in evaluation. Patient reported worsening of chronic dysphagia symptoms. Patient reported globus sensation with solids and pills, no difficulty with liquids. Patient endorsed recurring pneumonia (once per year), voice changes (described as raspy). Denied unintentional weight loss. Disussed that she is chewing he food then removing it from her mouth, CHECK PROCESSING CLERK encouraged her to discuss with a dietitian. Prior Swallowing Function/Diet Textures: Regular Consistency, Thin Liquids IDDSI Level 0 OBJECTIVE: MEASURES WITH LEVEL OF FUNCTION: Instrumental Swallow Assessment Type: Modified Barium Swallow Study Modified Barium Swallow Views: Lateral position, Anterior-posterior position Position Of Patient During Assessment: Upright In Chair, Standing Response to Consistencies Presented: Patient fed self. Previous Swallow Study: MBS (unable to obtain CHECK PROCESSING CLERK report) Barium Consistencies Provided: Thin Liquids, Mildly Thick Liquids ([place] Thick), Pureed Solids, Regular Solids, 13mm Tablet Oral Phase: As Follows Lip Closure: Escape from interlabial space or lateral juncture/no extension beyond liz border Tongue Control During Bolus Hold: Cohesive bolus between tongue to palatal seal Bolus Preparation/Mastication: Slow prolonged mastication with complete re-collection necessary Bolus Transport/Lingual Motion: Delayed initiation of tongue motion for A-P movement of the bolus Oral Residue: Residue collection on oral structure Initiation Of Pharyngeal Swallow: Bolus head at pit of pyriforms Pharyngeal Phase: As Follows Soft Palate Elevation: No bolus between soft palate/pharyngeal wall Laryngeal Elevation: Complete superior movement of thyroid cartilage with contact of arytenoids to epiglottic petiole Anterior Hyoid Excursion: Complete anterior movement Epiglottic Movement: Complete inversion Laryngeal Vestibular Closure/Height of the Swallow: Complete - no air/contrast in laryngeal vestibule Pharyngeal Stripping Wave: Present, however, diminished Pharyngeal Contraction (A/P View Only): Complete Pharyngoesophageal Segment Opening: Partial distension/partial duration with partial obstruction of flow of bolus (Reduced duration with collection of liquids and ejection back to pyriform sinuses) Tongue Base Retraction: Trace column of contrast or air between tongue base and pharyngeal wall Pharyngeal Residue: Trace residue within or on the pharyngeal structures Esophageal Clearance In An Upright Position: Esophageal retention (Barium tablet appeared to sit right above the stomach) Penetration: During the swallow Penetration With: Thin Liquids IDDSI Level 0 Penetration-Aspiration Scale for MBSS: Completed Penetration-Aspiration Scale (adapted from Jacquelin et al., 1996): Consistency Penetration/Aspiration Thin liquids via tsp and straw; Mildly-thick liquids; Puree; Regular PAS-1: Material does not enter airway. Thin liquids via cup PAS-2: Material enters airway, remains above the vocal folds, and is ejected from airway. PAS-3: Material enters airway, remains above vocal folds, and is not ejected from airway. PAS-4: Material enters airway, contacts vocal folds, and is ejected from airway. PAS-5: Material enters airway, contacts vocal folds, and is not ejected from airway. PAS-6: Material enters airway, passes below vocal folds, and is ejected into larynx or out of airway. PAS-7: Material enters airway, passes below vocal folds, and is not ejected from the trachea despite effort. PAS-8: Material enters airway, passes below vocal folds, and no effort is made to eject. Education: Education Learning Preferences: Explanation, Performance Barriers: None TREATMENT: Performed Modified Barium Swallowing Study (14617). Evaluation: Modified Barium Swallow Evaluation (55083) Education regarding findings from today's Modified Barium Swallowing study (fluoroscopic study) and suggested plans for treatment were provided to the patient through verbal / written instruction, images and/or demonstration. Patient was able to demonstrate understanding of education provided this date. Billing: Modified Barium Swallow (33618) Total time: 49 minutes Latanya Peralta CCC-CHECK PROCESSING CLERK documented in this encounter [facility] 04-23-2023 History of Present illness Narrative Radiology Service Progress Note PATIENT NAME: Esme Morfin DATE OF SERVICE: April 23, 2023 TIME: 2:39 PM PATIENT IDENTITY VERIFICATION COMPLETED USING TWO (2) IDENTIFIERS: Name and Date of confirmed by patient verbally. FALL SCREENING: Has the patient had 2 falls in the last year or 1 fall with injury or currently using an Ambulatory Assistive Device (Walker, Cane, Wheelchair, Crutches, etc.)? No PATIENT GENDER DATA: Female. status: : No status: NO. PATIENT RELEVANT IMPLANT DATA REVIEWED: Not Applicable PATIENT PRESENTS WITH AN IMPLANTABLE OR ATTACHED UNIONMELT OPERATOR: No RADIOLOGY DEPARTMENT: General X-ray: Exam(s) Completed: GI/ Procedure(s): Modified barium swallow with barium contrast PERIPHERAL IV DATA: Not applicable SIGNED BY: RT Spring(R) April 23, 2023 2:39 PM documented in this encounter [facility] 04-22-2023 Miscellaneous Notes Endocrinology & Metabolism Social Work Progress Note Provider Action / FYI N/A Esme Morfin [id number] Type of Contact: telephone 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 Note/Intervention: gas utility worker calls Patient who answers the phone and asks if she can call right back. gas utility worker agrees. [employer] referral placed: No Signature: MICHELA Good LSW Patient Name: Esme Morfin Date: 04/22/2023 Time: 10:22 AM Pager/Contact #: [phone] During this patient contact I spent approximately 5 minutes in reviewing the patient's chart and counseling regarding community resources and coordinating care. documented in this encounter [facility] 04-21-2023 Miscellaneous Notes Endocrinology & Metabolism Social Work Progress Note Provider Action / FYI N/A Esme Morfin [id number] Type of Contact: telephone Endocrine VACUUM COOKER OPERATOR Referral Reason: Mental Health Resources Contact Made?: No- Patient's voicemail is not set up/full. Sports Reporter is unable to leave a voicemail. Will follow up and attempt to reach patient. Note/Intervention: gas utility worker calls Patient to discuss next steps with license board report. gas utility worker cannot leave a voicemail because the mailbox is full. gas utility worker sends Patient a [employer] message. [employer] referral placed: No Signature: MICHELA Good LSW Patient Name: Esme Morfin Date: 04/21/2023 Time: 1:49 PM Pager/Contact #: [phone] During this patient contact I spent approximately 15 minutes in reviewing the patient's chart and counseling regarding community resources and coordinating care. documented in this encounter [facility] 04-19-2023 Miscellaneous Notes Addended by: BIPIN NINA on: 04/19/2023 05:56 PM Modules accepted: Orders Minimal GI effects at this point. Increase to 3 mg trulicity. MC message sent. Emphasized lifestyle modification for optimal weight loss. Bipin Nina APRN.CNP Images from the original note were not included. Summary of personal CGM findings: Data download for most recent 14 days: CGM Type: [email or web address] 3 CGM recording adequate for interpretation: Yes Worn 48% of time. Coefficient of variation: 38.6% Interpretation: PP hypoglycemia following hyperglycemic PP sharp elevation. Average glucose 110 mg/dL Time in range (BG 70-180 mg/dL) 81% Time below range (BG < 70 mg/dL) 10% Time above range (BG > 180 mg/dL) 9% T2DM w/ hypoglycemia - recommend low carb, high protein/fat diet - also include fiber to slow gastric transit - recommend staying at current or lower dose if still experiencing GI s/e so as to not worsen symptoms from / MC message. Bipin Nina APRN.CNP documented in this encounter [facility] 04-15-2023 Note HNO ID: [id number] Author: SHRUTHI ROSALES RT(R) Service: Radiology Author Type: Entrepreneurial Finance Professor Type: Progress Notes Filed: 04/15/2023 13:59 Note Text: Radiology Service Progress Note PATIENT NAME: Esme Morfin DATE OF SERVICE: April 15, 2023 TIME: 1:59 PM PATIENT IDENTITY VERIFICATION COMPLETED USING TWO (2) IDENTIFIERS: Name and Date of confirmed by patient verbally. FALL SCREENING: Has the patient had 2 falls in the last year or 1 fall with injury or currently using an Ambulatory Assistive Device (Walker, Cane, Wheelchair, Crutches, etc.)? No PATIENT GENDER DATA: Female. status: : No status: NO. PATIENT RELEVANT IMPLANT DATA REVIEWED: Not Applicable PATIENT PRESENTS WITH AN IMPLANTABLE OR ATTACHED UNIONMELT OPERATOR: No RADIOLOGY DEPARTMENT: CT; Exam(s) Completed: Abdomen/Pelvis PERIPHERAL IV DATA: Not applicable SIGNED BY: RT Star(R) April 15, 2023 1:59 PM [facility] 04-15-2023 History of Present illness Narrative Radiology Service Progress Note PATIENT NAME: Esme Morfin DATE OF SERVICE: April 15, 2023 TIME: 1:59 PM PATIENT IDENTITY VERIFICATION COMPLETED USING TWO (2) IDENTIFIERS: Name and Date of confirmed by patient verbally. FALL SCREENING: Has the patient had 2 falls in the last year or 1 fall with injury or currently using an Ambulatory Assistive Device (Walker, Cane, Wheelchair, Crutches, etc.)? No PATIENT GENDER DATA: Female. status: : No status: NO. PATIENT RELEVANT IMPLANT DATA REVIEWED: Not Applicable PATIENT PRESENTS WITH AN IMPLANTABLE OR ATTACHED UNIONMELT OPERATOR: No RADIOLOGY DEPARTMENT: CT; Exam(s) Completed: Abdomen/Pelvis PERIPHERAL IV DATA: Not applicable SIGNED BY: RT Star(Pierce) April 15, 2023 1:59 PM documented in this encounter [facility] 04-15-2023 Miscellaneous Notes Sent patient a SocialSambat response to this phone call. Adilene Ordoñez APRN.CNP Patient called requesting to speak to Adilene. Scheduled for CT Scan today. However, received call that it cannot be done because it's listed that she has an allergy to iodine, which she does not. Can she please speak to Adilene SEXTON! documented in this encounter [facility] 04-15-2023 Miscellaneous Notes Spoke to patient this morning in regards to her CT scan later today. I let her know that Contrast Dye (Iodine) was listed in her allergies and per our policy and procedures we are unable to scan her this afternoon due to not being properly medicated. Patient upset because she states she is not allergic to contrast and that she has had it multiple times before. I let her know that we are unable to remove the allergy from the chart and that she should contact her PCP if she would like it removed. At this time, due to our policy, we are unable to scan the patient without a pre-medication. documented in this encounter [facility] 04-14-2023 Miscellaneous Notes Returned patients MyChart message via telephone call. Encouraged patient to go to emergency room due to symptoms, especially the heart palpitations. Pt expresses that she does not want to go to emergency room and is asking for an order for CT scan. Order for CT scan placed, pt made aware there is no stat CT as an outpatient, she would need to go to ED for stat CT. Pt is going to try and get CT scan done today, if she cannot she agrees to go to the emergency room. I informed patient that my first choice and my STRONG recommendation is that she goes to the emergency room now and not try to wait for an outpatient CT scan. Adilene Ordoñez APRN.CNP documented in this encounter [facility] 04-14-2023 Miscellaneous Notes Spoke to patient, [employer] message sent wrong provider. Patient is contacting correct provider. Alisha Peterson RN documented in this encounter [facility] 04-01-2023 Note HNO ID: [id number] Author: MARIBEL CARLISLE RT(R) Service: ? Author Type: Technologist Type: Progress Notes Filed: 04/01/2023 15:34 Note Text: Radiology Service Progress Note PATIENT NAME: Esme Morfin DATE OF SERVICE: April 01, 2023 TIME: 3:33 PM PATIENT IDENTITY VERIFICATION COMPLETED USING TWO (2) IDENTIFIERS: Name and Date of confirmed by patient verbally. FALL SCREENING: Has the patient had 2 falls in the last year or 1 fall with injury or currently using an Ambulatory Assistive Device (Walker, Cane, Wheelchair, Crutches, etc.)? No PATIENT GENDER DATA: Female. status: : No status: NO. PATIENT RELEVANT IMPLANT DATA REVIEWED: Yes PATIENT PRESENTS WITH AN IMPLANTABLE OR ATTACHED UNIONMELT OPERATOR: No RADIOLOGY DEPARTMENT: General X-ray: Exam(s) Completed: Spine X-Ray(s): Cervical AP / LAT / OBL PERIPHERAL IV DATA: Not applicable SIGNED BY: RT Fabby(R) April 01, 2023 3:33 PM [facility] 04-01-2023 Note HNO ID: [id number] Author: HILARIO LEAVITT DO Service: ? Author Type: Physician Type: Progress Notes Filed: 04/01/2023 15:34 Note Text: Esme Morfin is a patient of Farhat Pineda MD. CHIEF COMPLAINT: Esme Morfin is a 47 year old female who presents today for new evaluation of neck. HISTORY OF PRESENT ILLNESS: PAIN EVALUATION 04/01/2023 1459 Pain Level: 7 Pain Location: Shoulder-Left Description: Numbness Duration Amount of Time: 2 Duration Units: Weeks Frequency: Continuous Intervention/Comfort measure: Medication;Cold;Massage;Heat Patient states for the past 2 months she has been having bilateral neck pain with intermittent numbness and tingling shooting down the left and right arm, left greater than right. Denies any inciting trauma or acute event. Patient states over the past 2 weeks her symptoms have been getting worse, particularly on the left side. Is unable to take NSAIDs or steroids due to prior GI bleed and adverse reaction. Has been trying Voltaren with some relief. States she is having trouble sleeping at night. PREVIOUS TREATMENTS: NSAIDs: No Injections: No Surgeries: No Physical Therapy: No PHYSICAL EXAMINATION: Cervical Exam: Decreased on flexion and extension range of motion Spurling exam leads to reproduction of neck pain, no radicular symptoms SHOULDER EXAM Flexion: normal at 150-180 degrees Abduction: normal at 125-150 degrees External rotation: 45 SC JOINT: no tenderness to palpation AC JOINT: no tenderness to palpation Scapula exam: normal examination of scapula with no dyskinetic motion noted Jase Test / Empty Can Test (supraspinatus): normal examination with no pain or weakness elicited Resisted lateral rotation test (infraspinatus): normal examination with no pain or weakness elicited Belly press test (subscapualris): normal examination with no pain or weakness elicited Marin's test: no pain elicited Speed's test: normal exam with no pain elicited Black test: normal exam with no pain elicited Neer test: normal exam with no pain elicited IMAGING: Final results and radiologist's interpretation, available in the [facility] health record. Images were reviewed with the patient/family members in the office today. My personal interpretation of the performed imaging is no acute abnormality. CLINICAL IMPRESSION / ASSESSMENT: (M54.12) Cervical radiculopathy (primary encounter diagnosis) (M25.512) Acute pain of left shoulder (M54.2) Neck pain RECOMMENDATION / PLAN: Patient was educated on her diagnosis, I do not believe she has primary shoulder pain at this time. Her pain is originating from her neck especially in the setting of intermittent numbness and tingling shooting down into the digits bilaterally. I explained to the patient that she will require a spine consult along with cervical x-ray on the way out at discharge. Patient has not tolerated NSAIDs or steroids in the past secondary to GI bleed so we will avoid at this time. Patient instructed to use topical lidocaine patch available [id number] as needed. Will place the order for physical therapy. Patient to follow-up with both physical therapy and spine colleagues. Patient is agreeable and comfortable with this plan. Procedures Verbal health education was given to patient. Patient verbalizes understanding and agrees with the treatment plan as detailed above. Hilario Villegas MD Emergency Medicine Primary Care Sports Medicine Fellow, PGY-5 I personally saw in evaluating the patient today. I personally obtain the rivera and critical portions of the history and physical exam. I reviewed the resident/fellow's documentation and discuss the patient with the resident/fellow. I agree with the resident/fellow's medical decision making as documented. Hilario Leavitt DO [facility] 04-01-2023 Note HNO ID: [id number] Author: JIMMY FELICIANO RT(R) Service: ? Author Type: Technologist Type: Progress Notes Filed: 04/01/2023 14:56 Note Text: Radiology Service Progress Note PATIENT NAME: Esme Morfin DATE OF SERVICE: April 01, 2023 TIME: 2:56 PM PATIENT IDENTITY VERIFICATION COMPLETED USING TWO (2) IDENTIFIERS: Name and Date of confirmed by patient verbally. FALL SCREENING: Has the patient had 2 falls in the last year or 1 fall with injury or currently using an Ambulatory Assistive Device (Walker, Cane, Wheelchair, Crutches, etc.)? No PATIENT GENDER DATA: Female. status: : No status: N/A PATIENT RELEVANT IMPLANT DATA REVIEWED: Not Applicable PATIENT PRESENTS WITH AN IMPLANTABLE OR ATTACHED UNIONMELT OPERATOR: No RADIOLOGY DEPARTMENT: General X-ray: Exam(s) Completed: Upper Extremity X-Ray(s): Shoulder, AP / TRUE AP / AXILLARY left PERIPHERAL IV DATA: Not applicable SIGNED BY: RT Aliza(R) April 01, 2023 2:56 PM [facility] 04-01-2023 History of Present illness Narrative Radiology Service Progress Note PATIENT NAME: Esme Morfin DATE OF SERVICE: April 01, 2023 TIME: 3:33 PM PATIENT IDENTITY VERIFICATION COMPLETED USING TWO (2) IDENTIFIERS: Name and Date of confirmed by patient verbally. FALL SCREENING: Has the patient had 2 falls in the last year or 1 fall with injury or currently using an Ambulatory Assistive Device (Walker, Cane, Wheelchair, Crutches, etc.)? No PATIENT GENDER DATA: Female. status: : No status: NO. PATIENT RELEVANT IMPLANT DATA REVIEWED: Yes PATIENT PRESENTS WITH AN IMPLANTABLE OR ATTACHED UNIONMELT OPERATOR: No RADIOLOGY DEPARTMENT: General X-ray: Exam(s) Completed: Spine X-Ray(s): Cervical AP / LAT / OBL PERIPHERAL IV DATA: Not applicable SIGNED BY: RT Fabby(R) April 01, 2023 3:33 PM documented in this encounter [facility] 04-01-2023 History of Present illness Narrative Esme Morfin is a patient of Farhat Pineda MD. CHIEF COMPLAINT: Esme Morfin is a 47 year old female who presents today for new evaluation of neck. HISTORY OF PRESENT ILLNESS: PAIN EVALUATION 04/01/2023 1459 Pain Level: 7 Pain Location: Shoulder-Left Description: Numbness Duration Amount of Time: 2 Duration Units: Weeks Frequency: Continuous Intervention/Comfort measure: Medication;Cold;Massage;Heat Patient states for the past 2 months she has been having bilateral neck pain with intermittent numbness and tingling shooting down the left and right arm, left greater than right. Denies any inciting trauma or acute event. Patient states over the past 2 weeks her symptoms have been getting worse, particularly on the left side. Is unable to take NSAIDs or steroids due to prior GI bleed and adverse reaction. Has been trying Voltaren with some relief. States she is having trouble sleeping at night. PREVIOUS TREATMENTS: NSAIDs: No Injections: No Surgeries: No Physical Therapy: No PHYSICAL EXAMINATION: Cervical Exam: Decreased on flexion and extension range of motion Spurling exam leads to reproduction of neck pain, no radicular symptoms SHOULDER EXAM Flexion: normal at 150-180 degrees Abduction: normal at 125-150 degrees External rotation: 45 SC JOINT: no tenderness to palpation AC JOINT: no tenderness to palpation Scapula exam: normal examination of scapula with no dyskinetic motion noted Jase Test / Empty Can Test (supraspinatus): normal examination with no pain or weakness elicited Resisted lateral rotation test (infraspinatus): normal examination with no pain or weakness elicited Belly press test (subscapualris): normal examination with no pain or weakness elicited Marin's test: no pain elicited Speed's test: normal exam with no pain elicited Black test: normal exam with no pain elicited Neer test: normal exam with no pain elicited IMAGING: Final results and radiologist's interpretation, [facility] Center health record. Images were reviewed with the patient/family members in the office today. My personal interpretation of the performed imaging is no acute abnormality. CLINICAL IMPRESSION / ASSESSMENT: (M54.12) Cervical radiculopathy (primary encounter diagnosis) (M25.512) Acute pain of left shoulder (M54.2) Neck pain RECOMMENDATION / PLAN: Patient was educated on her diagnosis, I do not believe she has primary shoulder pain at this time. Her pain is originating from her neck especially in the setting of intermittent numbness and tingling shooting down into the digits bilaterally. I explained to the patient that she will require a spine consult along with cervical x-ray on the way out at discharge. Patient has not tolerated NSAIDs or steroids in the past secondary to GI bleed so we will avoid at this time. Patient instructed to use topical lidocaine patch available qqsl-soo-llyutpe as needed. Will place the order for physical therapy. Patient to follow-up with both physical therapy and spine colleagues. Patient is agreeable and comfortable with this plan. Procedures Verbal health education was given to patient. Patient verbalizes understanding and agrees with the treatment plan as detailed above. Hilario Villegas MD Emergency Medicine Primary Care Sports Medicine Fellow, PGY-5 I personally saw in evaluating the patient today. I personally obtain the rivera and critical portions of the history and physical exam. I reviewed the resident/fellow's documentation and discuss the patient with the resident/fellow. I agree with the resident/fellow's medical decision making as documented. Hilario Leavitt DO documented in this encounter [facility] 04-01-2023 History of Present illness Narrative Radiology Service Progress Note PATIENT NAME: Esme Morfin DATE OF SERVICE: April 01, 2023 TIME: 2:56 PM PATIENT IDENTITY VERIFICATION COMPLETED USING TWO (2) IDENTIFIERS: Name and Date of confirmed by patient verbally. FALL SCREENING: Has the patient had 2 falls in the last year or 1 fall with injury or currently using an Ambulatory Assistive Device (Walker, Cane, Wheelchair, Crutches, etc.)? No PATIENT GENDER DATA: Female. status: : No status: N/A PATIENT RELEVANT IMPLANT DATA REVIEWED: Not Applicable PATIENT PRESENTS WITH AN IMPLANTABLE OR ATTACHED UNIONMELT OPERATOR: No RADIOLOGY DEPARTMENT: General X-ray: Exam(s) Completed: Upper Extremity X-Ray(s): Shoulder, AP / TRUE AP / AXILLARY left PERIPHERAL IV DATA: Not applicable SIGNED BY: RT Aliza(R) April 01, 2023 2:56 PM documented in this encounter [facility] 03-31-2023 Miscellaneous Notes Endocrinology & Metabolism Social Work Progress Note Provider Action / FYI gas utility worker and Patient will meet via phone on 04/02/23 at 3PM to go over the draft narrative and prepare the statement to the licensure board. Esmetavares Morfin [id number] Type of Contact: telephone Endocrine VACUUM COOKER OPERATOR Referral Reason: General Community Resources Contact Made?: YES- gas utility worker confirmed patient's Name, , and Address, Note/Intervention: gas utility worker talks with Compliance Office and will check in with them before submitting a report to the licensure board. gas utility worker calls Patient to check in and discuss sent narrative. Patient reports she is on her way to the hospital to get bloodwork and thinks she might have another GI bleed. Patient states she is not feeling well. gas utility worker provides supportive and empathetic listening to Patient. Patient reports the [facility] canceled her appointment without telling her. Patient explains she wants to go back to seeing her counselor at [facility] [place], but needs to change insurance plans first and she has not been able to do that yet. Patient states she read the narrative and it sounded good. Patient describes being on board to get things rolling with that and reports she talked with her landlord about getting a doorbell camera in case Tip tries to visit her after the report to the licensure board is made. gas utility worker and Patient agree to meet via phone on Wednesday, 04/02 at 3PM to go over the draft narrative and prepare the statement to the licensure board. [facility] referral placed: No Signature: MICHELA Good, VACUUM COOKER OPERATOR Patient Name: Esme Morfin Date: 03/31/2023 Time: 2:51 PM Pager/Contact #: [phone] During this patient contact I spent approximately 30 minutes in reviewing the patient's chart and counseling regarding community resources and coordinating care. documented in this encounter [facility] 03-26-2023 Miscellaneous Notes Endocrinology & Metabolism Social Work Progress Note Provider Action / FYI gas utility worker and Patient to co-create a report [facility] Esme Morfin [id number] Type of Contact: telephone Endocrine VACUUM COOKER OPERATOR Referral Reason: Mental Health Resources Contact Made?: YES- gas utility worker confirmed patient's Name, , and Address, Note/Intervention: gas utility worker calls Patient to discuss being a mandated solar installation technician to the [place] Counselor, Sports Reporter, and Marriage & Family Therapist Board for licensees acting unethically. Patient reports she has not heard from Tip Garrett and she looked at the resources social media specialist sent, but has not thoroughly reviewed them. gas utility worker and Patient discuss text messages sent via [employer] message from Patient. gas utility worker advises Patient about social media specialist being a mandated solar installation technician to the [facility] Board for licensees acting unethically. gas utility worker explains to Patient she will need to report Tip to the Board and asks Patient for her assistance co-creating the report. Patient agrees to help social media specialist with the report and clarifies the following information: - gas utility worker may include the texts from [employer] in the report to the Board. - Patient first heard from Tip on 03/08 via phone call and he sent her an email with forms. Tip followed-up on this email on 03/15. - Patient received her first text from Tip on 03/10, the same day she went to detox. Patient reports Tip also called her on 03/10. - Patient confirms she goes to the [facility] in [place]. Patient asks that social media specialist not disclose her name in the report and social media specialist agrees. gas utility worker explains that social media specialist's name will be on the report and that if the Board has any questions, they will reach out to social media specialist and not Patient. gas utility worker confirms she will not make the report until she confers with Patient. Patient indicates she did not get a copy of the police report [facility] told her about. gas utility worker suggests that Patient file her own police report. gas utility worker advises Patient not to respond to any messages from Tip and to call 911 and not answer the door if he comes to Patient's home. gas utility worker explains she will send Patient a draft statement through [employer] for her review. gas utility worker and Patient agree to stay in touch about the statement and next steps. gas utility worker talks with Holly Sanchez from the Compliance Office who returns social media specialist's voicemail from yesterday, 03/25/1023. gas utility worker describes the situation to Holly and explains social media specialist's mandated solar installation technician obligations under [place] Administrative Code 4757-5-10. Holly agrees with social media specialist's plan to work with Patient to co-create a report to submit to the licensure Board. Holly confirms social media specialist does not have to wait to hear from [facility] to submit the report. Holly advises social media specialist she will be in touch if more information is needed or social media specialist needs to take additional steps. [facility] referral placed: No Signature: MICHELA Good LSW Patient Name: Esme Morfin Date: 03/26/2023 Time: 2:19 PM Pager/Contact #: [phone] During this patient contact I spent approximately 80 minutes in reviewing the patient's chart and counseling regarding community resources and coordinating care. documented in this encounter [facility] 03-26-2023 Hospital Discharge instructions Patient Education 03/26/2023 10:54:18 BMI for Adults BMI for Adults What is BMI? Body mass index (BMI) is a number that is calculated from a person's weight and height. BMI can help estimate how much of a person's weight is composed of fat. BMI does not measure body fat directly. Rather, it is an alternative to procedures that directly measure body fat, which can be difficult and expensive. BMI can help identify people who may be at higher risk for certain medical problems. What are BMI measurements used for? BMI is used as a screening tool to identify possible weight problems. It helps determine whether a person is obese, overweight, a healthy weight, or underweight. BMI is useful for: Identifying a weight problem that may be related to a medical condition or may increase the risk for medical problems. Promoting changes, such as changes in diet and exercise, to help reach a healthy weight. BMI screening can be repeated to see if these changes are working. How is BMI calculated? BMI involves measuring your weight in relation to your height. Both height and weight are measured, and the BMI is calculated from those numbers. This can be done either in [place] ([place] or metric measurements. Note that charts and online BMI calculators are available to help you find your BMI quickly and easily without having to do these calculations yourself. To calculate your BMI in [place] ([place] measurements: 1.Measure your weight in pounds (lb). 2.Multiply the number of pounds by 703. For example, for a person who weighs 180 lb, multiply that number by 703, which equals 126,540. 3.Measure your height in inches. Then multiply that number by itself to get a measurement called inches squared. For example, for a person who is 70 inches tall, the inches squared measurement is 70 inches x 70 inches, which equals 4,900 inches squared. 4.Divide the total from step 2 (number of lb x 703) by the total from step 3 (inches squared): 126,540 4,900 = 25.8. This is your BMI. To calculate your BMI in metric measurements: 1.Measure your weight in kilograms (kg). 2.Measure your height in meters (m). Then multiply that number by itself to get a measurement called meters squared. For example, for a person who is 1.75 m tall, the meters squared measurement is 1.75 m x 1.75 m, which is equal to 3.1 meters squared. 3.Divide the number of kilograms (your weight) by the meters squared number. In this example: 70 3.1 = 22.6. This is your BMI. What do the results mean? BMI charts are used to identify whether you are underweight, normal weight, overweight, or obese. The following guidelines will be used: Underweight: BMI less than 18.5. Normal weight: BMI between 18.5 and 24.9. Overweight: BMI between 25 and 29.9. Obese: BMI of 30 or above. Keep these notes in mind: Weight includes both fat and muscle, so someone with a muscular build, such as an athlete, may have a BMI that is higher than 24.9. In cases like these, BMI is not an accurate measure of body fat. To determine if excess body fat is the cause of a BMI of 25 or higher, further assessments may need to be done by a health care provider. BMI is usually interpreted in the same way for men and women. Where to find more information For more information about BMI, including tools to quickly calculate your BMI, go to these websites: Centers for Disease Control and Prevention: www.cdc.gov [place] Heart Association: www.heart.org National Heart, Lung, and Blood [place]: www.nhlbi.nih.gov Summary Body mass index (BMI) is a number that is calculated from a person's weight and height. BMI may help estimate how much of a person's weight is composed of fat. BMI can help identify those who may be at higher risk for certain medical problems. BMI can be measured using [place] measurements or metric measurements. BMI charts are used to identify whether you are underweight, normal weight, overweight, or obese. This information is not intended to replace advice given to you by your health care provider. Make sure you discuss any questions you have with your health care provider. Document Revised: 10/18/2019 Document Reviewed: 08/25/2019 [employer] Patient Education 2022 Medcurrent. 03/26/2023 10:54:15 Chest Wall Pain, Ijfm-zl-Mkwa Chest Wall Pain Chest wall pain is pain in or around the bones and muscles of your chest. Chest wall pain may be caused by: An injury. Coughing a lot. Using your chest and arm muscles too much. Sometimes, the cause may not be known. This pain may take a few weeks or longer to get better. Follow these instructions at home: Managing pain, stiffness, and swelling If told, put ice on the painful area: Put ice in a plastic bag. Place a towel between your skin and the bag. Leave the ice on for 20 minutes, 2 3 times a day. Activity Rest as told by your doctor. Avoid doing things that cause pain. This includes lifting heavy items. Ask your doctor what activities are safe for you. General instructions Take ajyk-xqb-aeimxrr and prescription medicines only as told by your doctor. Do not use any products that contain nicotine or tobacco, such as cigarettes, e-cigarettes, and chewing tobacco. If you need help quitting, ask your doctor. Keep all follow-up visits as told by your doctor. This is important. Contact a doctor if: You have a fever. Your chest pain gets worse. You have new symptoms. Get help right away if: You feel sick to your stomach (nauseous) or you throw up (vomit). You feel sweaty or light-headed. You have a cough with mucus from your lungs (sputum) or you cough up blood. You are short of breath. These symptoms may be an emergency. Do not wait to see if the symptoms will go away. Get medical help right away. Call your local emergency services (911 in the [place].S[place] Do not drive yourself to the hospital. Summary Chest wall pain is pain in or around the bones and muscles of your chest. It may be treated with ice, rest, and medicines. Your condition may also get better if you avoid doing things that cause pain. Contact a doctor if you have a fever, chest pain that gets worse, or new symptoms. Get help right away if you feel light-headed or you get short of breath. These symptoms may be an emergency. This information is not intended to replace advice given to you by your health care provider. Make sure you discuss any questions you have with your health care provider. Document Revised: 04/29/2021 Document Reviewed: 04/11/2021 [employer] Patient Education 2022 Medcurrent. 03/26/2023 10:54:07 Acute Bronchitis, Adult, Fdpi-lf-Awam Acute Bronchitis, Adult Acute bronchitis is when air tubes in the lungs (bronchi) suddenly get swollen. The condition can make it hard for you to breathe. In adults, acute bronchitis usually goes away within 2 weeks. A cough caused by bronchitis may last up to 3 weeks. Smoking, allergies, and asthma can make the condition worse. What are the causes? Germs that cause cold and flu (viruses). The most common cause of this condition is the virus that causes the common cold. Bacteria. Substances that bother (irritate) the lungs, including: ?Smoke from cigarettes and other types of tobacco. ?Dust and pollen. ?Fumes from chemicals, gases, or burned fuel. ?Indoor or outdoor air pollution. What increases the risk? A weak body's defense system. This is also called the immune system. Any condition that affects your lungs and breathing, such as asthma. What are the signs or symptoms? A cough. Coughing up clear, yellow, or green mucus. Making high-pitched whistling sounds when you breathe, most often when you breathe out (wheezing). Runny or stuffy nose. Having too much mucus in your lungs (chest congestion). Shortness of breath. Body aches. A sore throat. How is this treated? Acute bronchitis may go away over time without treatment. Your doctor may tell you to: Drink more fluids. This will help thin your mucus so it is easier to cough up. Use a device that gets medicine into your lungs (inhaler). Use a vaporizer or a humidifier. These are machines that add water to the air. This helps with coughing and poor breathing. Take a medicine that thins mucus and helps clear it from your lungs. Take a medicine that prevents or stops coughing. It is not common to take an antibiotic medicine for this condition. Follow these instructions at home: Take ewfq-tqq-ztvludz and prescription medicines only as told by your doctor. Use an inhaler, vaporizer, or humidifier as told by your doctor. Take two teaspoons (10 mL) of honey at bedtime. This helps lessen your coughing at night. Drink enough fluid to keep your pee (urine) pale yellow. Do not smoke or use any products that contain nicotine or tobacco. If you need help quitting, ask your doctor. Get a lot of rest. Return to your normal activities when your doctor says that it is safe. Keep all follow-up visits. How is this prevented? Wash your hands often with soap and water for at least 20 seconds. If you cannot use soap and water, use hand account manager b2b. Avoid contact with people who have cold symptoms. Try not to touch your mouth, nose, or eyes with your hands. Avoid breathing in smoke or chemical fumes. Make sure to get the flu shot every year. Contact a doctor if: Your symptoms do not get better in 2 weeks. You have trouble coughing up the mucus. Your cough keeps you awake at night. You have a fever. Get help right away if: You cough up blood. You have chest pain. You have very bad shortness of breath. You faint or keep feeling like you are going to faint. You have a very bad headache. Your fever or chills get worse. These symptoms may be an emergency. Get help right away. Call your local emergency services (911 in the [place] Do not wait to see if the symptoms will go away. Do not drive yourself to the hospital. Summary Acute bronchitis is when air tubes in the lungs (bronchi) suddenly get swollen. In adults, acute bronchitis usually goes away within 2 weeks. Drink more fluids. This will help thin your mucus so it is easier to cough up. Take ofms-uls-jusqpcf and prescription medicines only as told by your doctor. Contact a doctor if your symptoms do not improve after 2 weeks of treatment. This information is not intended to replace advice given to you by your health care provider. Make sure you discuss any questions you have with your health care provider. Document Revised: 05/28/2021 Document Reviewed: 05/28/2021 [employer] Patient Education 2022 Medcurrent. Follow Up Care 03/26/2023 08:26:04 With:Farhat Pineda MD Address: [address] [place] [address]- When: Unknown [facility] 03-22-2023 Note HNO ID: [id number] Author: ADILENE ORDOÑEZ APRN.DRILL PRESS HAND Service: ? Author Type: Nurse Practitioner Type: Progress Notes Filed: 03/23/2023 14:09 Note Text: VIRTUAL VISIT I had a virtual visit with Ms. Morfin today for dysphagia. I have communicated my name and active licensure. The patient's identity and physical location were verified at the time of this visit. Either the patient or their legal new accounts banking representative has been informed of the risks and benefits of -- and alternatives to -- treatment through a remote evaluation and consents to proceed with the evaluation remotely. HISTORY: Ms. Morfin is a 47 year old female with a past medical history of but not limited to fibromyalgia, TALIA, diabetes type II, and tyroid cancer. Presenting today with the following chief complaint: -Pt having dysphagia to solid foods -Even small pills get stuck and she has to dig them back out -she has found herself chewing up food and feeling like it will get stuck if she swallows it so she spits it out. -no dysphagia to liquids -hx gastric bypass 2017 -has a lot of gas in her chest, take mylanta, tums and Rolaids -new constipation, did have recent medication adjustments with psych meds, she thinks could be contributing to constipation. 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 Mitral and aortic valve regurgitation 09/08/2009 Aortic insufficiency EF 60% DR Zuniga -- judged to be non-surgical and mild Nephrolithiasis TALIA (obstructive sleep apnea) 2015 on CPAP and BiPAP Postoperative malabsorption 03/04/2017 Rheumatoid arthritis (HCC) was treated with mtx plaquenil in past Thyroiditis, unspecified Thyroiditis Viral pneumonia, unspecified Pneumonia Vomiting of fecal matter PAST SURGICAL HISTORY Procedure Laterality Date ANES HRNA REPAIR UPR ABD TABDL RPR DIPHRG HRNA open 2001 COLONOSCOPY FLX DX W/COLLJ SPEC WHEN PFRMD Colonoscopy COLPO OF CERVIX WBIOPSYECC 04/04/2018 ESOPHAGOGASTRODUODENOSCOPY TRANSORAL DIAGNOSTIC EGD multiple GASTRIC BYPASS HX 2017 LAPAROSCOPY SURG CHOLECYSTECTOMY Cholecystectomy, lap LIG/TRNSXJ FLP TUBE ABDL/VAG APPR UNI/BI 1996 PAST SURGICAL HISTORY OF cardiac cath REPAIR PARAESOPHAGEAL HERNIA THYROIDECTOMY TOTAL/COMPLETE 02-04-2010 ? patial/incomplete FAMILY HISTORY Problem Relation Age of Onset Thyroid Mother graves' s/p I 131 Glaucoma Mother Heart Father Thyroid Sister goiter. None Sister Garcia's palsy. Diabetes Maternal Grandmother Diabetes Maternal Grandfather Social History Tobacco Use Smoking status: Never Smokeless tobacco: Never Vaping Use Vaping Use: Never used Substance Use Topics Alcohol use: Yes Comment: Social Drug use: No Current Outpatient Medications Medication Sig Dispense Refill dulaglutide (TRULICITY) 1.5 mg/0.5 mL pen injector Inject 1.5 mg subcutaneously one time a week. 4 Each 11 Blood-Glucose Meter (FREESTYLE LITE METER) monitoring kit Use as instructed. 1 Each 0 blood sugar diagnostic (FREESTYLE LITE STRIPS) test strip TEST BLOOD SUGARS 2 TIMES DAILY 200 Each 3 busPIRone (BUSPAR) 7.5 mg tablet Take 7.5 mg by mouth three times a day. escitalopram oxalate (LEXAPRO) 10 mg tablet Take 10 mg by mouth once daily. Mirtazapine (REMERON) 7.5 mg tablet Take 7.5 mg by mouth daily at bedtime. rOPINIRole (REQUIP) 0.5 mg tablet Take 0.5 mg by mouth daily at bedtime. hydrOXYzine pamoate (VISTARIL) 25 mg capsule Take 25 mg by mouth two times a day as needed for anxiety. ergocalciferol 50,000 unit capsule (VITAMIN D2, DRISDOL) Take 1 capsule by mouth three times a week. 36 capsule 3 levothyroxine (SYNTHROID) 75 mcg tablet Take 1 tablet by mouth once daily. 90 tablet 3 tretinoin (RETIN-A) 0.025 % topical cream Apply to affected area daily at bedtime. 20 g 2 Syringe with Needle, Safety (EASY TOUCH SHEATHLOCK SYRG-NDL) 3 mL 25 gauge x 1 syrg Weekly methotrexate injections, monthly vit b12 injections as instructed 1 Each 11 cyanocobalamin 1,000 mcg/mL inject 1 milliliter intramuscularly ONCE A MONTH as instructed 1 mL 11 diclofenac (VOLTAREN ARTHRITIS PAIN) 1 % topical gel Apply 4 g to affected area four times daily. 100 g 1 CPAP/BIPAP/OTHER Type .CPAPSettings into a note to see current settings/supplies/DME information. 1 Each 0 zaleplon (SONATA) 10 mg capsule Take 10 mg by mouth daily at bedtime. Pt takes 10mg qhs glucagon (BAQSIMI) 3 mg/actuation nasal spray Use 1 [place] in (more content not included)... [facility] 03-22-2023 Instructions Adilene Ordoñez APRN.DRILL PRESS HAND - 03/22/2023 2:40 PM EST 1) One treatment that may help relax the esophagus is actually peppermint extract and Altoids. This study demonstrates that 2 Altoids taken 10 minutes before meals can help swallowing - I would suggest trying this: https://www.ncbi.nlm.nih.gov/pub med/03792127 2) EGD dilation, rivet driver [phone] option 0 3) modified barium swallowing and esophagram [phone] 4) - Take MiraLAX (17 g, one capful) in a 6 oz of warm water in the morning, generic Miralax is ok. - A warm cup of coffee in the AM - In 30 minutes after the above, get into the habit of sitting on the toilet. Try Squatty Potty, or a stool or box that is 7 inches high, to prop your feet up to allow more effective bowel movements. - Hydrate throughout the day with just flat unflavored water (regular water). Avoid artificial sweeteners or carbonation. - Eat more fiber: fruits (peaches, prunes, nectarines, kiwis), vegetables; avoid bananas, apples, peanut butter documented in this encounter [facility] 03-22-2023 History of Present illness Narrative VIRTUAL VISIT I had a virtual visit with Ms. Morfin today for dysphagia. I have communicated my name and active licensure. The patient's identity and physical location were verified at the time of this visit. Either the patient or their legal new accounts banking representative has been informed of the risks and benefits of -- and alternatives to -- treatment through a remote evaluation and consents to proceed with the evaluation remotely. HISTORY: Ms. Morfin is a 47 year old female with a past medical history of but not limited to fibromyalgia, TALIA, diabetes type II, and tyroid cancer. Presenting today with the following chief complaint: -Pt having dysphagia to solid foods -Even small pills get stuck and she has to dig them back out -she has found herself chewing up food and feeling like it will get stuck if she swallows it so she spits it out. -no dysphagia to liquids -hx gastric bypass 2017 -has a lot of gas in her chest, take mylanta, tums and Rolaids -new constipation, did have recent medication adjustments with psych meds, she thinks could be contributing to constipation. 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 Mitral and aortic valve regurgitation 09/08/2009 Aortic insufficiency EF 60% DR Zuniga -- judged to be non-surgical and mild Nephrolithiasis TALIA (obstructive sleep apnea) 2015 on CPAP and BiPAP Postoperative malabsorption 03/04/2017 Rheumatoid arthritis (HCC) was treated with mtx plaquenil in past Thyroiditis, unspecified Thyroiditis Viral pneumonia, unspecified Pneumonia Vomiting of fecal matter PAST SURGICAL HISTORY Procedure Laterality Date ANES HRNA REPAIR UPR ABD TABDL RPR DIPHRG HRNA open 2001 COLONOSCOPY FLX DX W/COLLJ SPEC WHEN PFRMD Colonoscopy COLPO OF CERVIX WBIOPSYECC 04/04/2018 ESOPHAGOGASTRODUODENOSCOPY TRANSORAL DIAGNOSTIC EGD multiple GASTRIC BYPASS HX 2017 LAPAROSCOPY SURG CHOLECYSTECTOMY Cholecystectomy, lap LIG/TRNSXJ FLP TUBE ABDL/VAG APPR UNI/BI 1996 PAST SURGICAL HISTORY OF cardiac cath REPAIR PARAESOPHAGEAL HERNIA THYROIDECTOMY TOTAL/COMPLETE 02-04-2010 ? patial/incomplete FAMILY HISTORY Problem Relation Age of Onset Thyroid Mother graves' s/p I 131 Glaucoma Mother Heart Father Thyroid Sister goiter. None Sister Garcia's palsy. Diabetes Maternal Grandmother Diabetes Maternal Grandfather Social History Tobacco Use Smoking status: Never Smokeless tobacco: Never Vaping Use Vaping Use: Never used Substance Use Topics Alcohol use: Yes Comment: Social Drug use: No Current Outpatient Medications Medication Sig Dispense Refill dulaglutide (TRULICITY) 1.5 mg/0.5 mL pen injector Inject 1.5 mg subcutaneously one time a week. 4 Each 11 Blood-Glucose Meter (FREESTYLE LITE METER) monitoring kit Use as instructed. 1 Each 0 blood sugar diagnostic (FREESTYLE LITE STRIPS) test strip TEST BLOOD SUGARS 2 TIMES DAILY 200 Each 3 busPIRone (BUSPAR) 7.5 mg tablet Take 7.5 mg by mouth three times a day. escitalopram oxalate (LEXAPRO) 10 mg tablet Take 10 mg by mouth once daily. Mirtazapine (REMERON) 7.5 mg tablet Take 7.5 mg by mouth daily at bedtime. rOPINIRole (REQUIP) 0.5 mg tablet Take 0.5 mg by mouth daily at bedtime. hydrOXYzine pamoate (VISTARIL) 25 mg capsule Take 25 mg by mouth two times a day as needed for anxiety. ergocalciferol 50,000 unit capsule (VITAMIN D2, DRISDOL) Take 1 capsule by mouth three times a week. 36 capsule 3 levothyroxine (SYNTHROID) 75 mcg tablet Take 1 tablet by mouth once daily. 90 tablet 3 tretinoin (RETIN-A) 0.025 % topical cream Apply to affected area daily at bedtime. 20 g 2 Syringe with Needle, Safety (EASY TOUCH SHEATHLOCK SYRG-NDL) 3 mL 25 gauge x 1 syrg Weekly methotrexate injections, monthly vit b12 injections as instructed 1 Each 11 cyanocobalamin 1,000 mcg/mL inject 1 milliliter intramuscularly ONCE A MONTH as instructed 1 mL 11 diclofenac (VOLTAREN ARTHRITIS PAIN) 1 % topical gel Apply 4 g to affected area four times daily. 100 g 1 CPAP/BIPAP/OTHER Type .CPAPSettings into a note to see current settings/supplies/DME information. 1 Each 0 zaleplon (SONATA) 10 mg capsule Take 10 mg by mouth daily at bedtime. Pt takes 10mg qhs glucagon (BAQSIMI) 3 mg/actuation nasal spray Use 1 [place] in the nose as needed for low blood sugar. May repeat after 15 minutes using a new device if there is no response. 2 Each 2 Blood-Glucose Sensor (FREESTYLE NBA 3 SENSOR) vinny Use to check glucose 4 times or more daily. Change sensor every 14 days. (Patient not taking: Reported on 02/05/2023) 2 Each 11 CPAP/BIPAP/OTHER Type .CPAPSettings into a note to see current settings/supplies/DME information. 1 Each 0 ALPRAZolam (XANAX) 0.25 mg tablet Take 0.5 tablets by mouth as needed. (Patient not taking: Reported on 02/05/2023) meclizine (ANTIVERT) 25 mg tab Take 0.5-1 tablets by mouth three times daily as needed (for dizziness.). 30 tablet 1 BIPAP Lifetime supplies for BiPAP 12/8 cm H20 including mask, heated tubing, humidity, filters. Dx: G47.33 promethazine (PHENERGAN) 25 mg tablet Take 25 mg by mouth four times daily as needed. pantoprazole DR (PROTONIX) 40 mg tablet Take 1 tablet by mouth as needed. No current facility-administered medications for this visit. ALLERGIES Allergen Reactions Contrast Dye [Iodin* Other: See Comments Mobic [Meloxicam] Intolerance GI bleed with transfusion Motrin [Ibuprofen] Other: See Comments GI Bleed Nsaids (Non-Steroid* Unknown Prednisone Contraindication-Medical Surgical GI bleed Scopolamine Mental Status Change Paranoia, confusion, hallucination REVIEW OF SYSTEMS: PAIN ASSESSMENT: Negative for pain, history of chronic pain, or current treatment for a chronic pain condition. GENERAL: No weight loss, malaise or fevers RESPIRATORY: Negative for cough, hemoptysis, wheezing, COPD, dyspnea or shortness of breath CARDIOVASCULAR: Negative for chest pain, leg swelling, hypertension, CHF or palpitations GI: as above MUSCULOSKELETAL: Negative for joint pain or swelling, back pain or muscle pain SKIN: Negative for lesions, rash, and itching ENDOCRINE: Negative for cold or heat intolerance, polyuria, polydipsia and goiter NEURO: No history of headaches, syncope, paralysis, seizures or tremors PHYSICAL FINDINGS OF NOTE: Patient reported height 5'3 and weight 228 lbs General - Normal, healthy, cooperative, in no acute distress Able to interact verbally by video conference Psych - ORIENTATION: normal to time place, person and situation Mood/Affect: AFFECT AND MOOD: Normal Head/Neuro - Normal size and shape Facial appearance normal Pulmonary - respiratory effort normal Cardiovascular - patient describes extremities normal, warm, no cyanosis,no clubbing, and no edema Skin - abnormal lesions not visualized Motor - patient seen sitting with Normal appearing strength and coordination REVIEWED ITEMS Prior work up ASSESSMENT AND PLAN ASSESSMENT/PLAN: 1. Dysphagia, unspecified type - ICD9: 787.20, ICD10: R13.10 Stricture vs dysmotility vs GERD - EGD - THERAPEUTIC, EUS, OR TUBE INTERVENTIONS - XR MODIFIED BARIUM SWALLOW W SPEECH THERAPY - XR ESOPHAGRAM -Miralax daily bowel regimen for constipation, last colonoscopy 2018 Adilene Ordoñez, AERIAL SURVEY TECHNICIAN.FRANK I HAVE offered the patient an outpatient appointment for further care at [facility]. I spent a total of 45 minutes on the date of the service which included preparing to see the patient, gfqa-eg-pull patient care, completing clinical documentation, obtaining and/or reviewing separately obtained history, performing a medically appropriate examination, counseling and educating the patient/family/caregiver, ordering medications, tests, or procedures, communicating with other HCPs (not separately reported), independently interpreting results (not separately reported), communicating results to the patient/family/caregiver, and care coordination (not separately reported). Adilene Ordoñez APRN.FRANK documented in this encounter [facility] 02-05-2023 Note HNO ID: [id number] Author: Bipin Nina APRN.CNP Service: ? Author Type: Nurse Practitioner Type: Progress Notes Filed: 02/05/2023 1:44 PM Note Text: Endocrinology Follow-up Subjective History of Present Illness Esme Morfin presents today for follow up of Type 2 Diabetes Mellitus. Gender: female Age: [age] year old Diagnosed with Type 2 Diabetes Mellitus ~ 2014. 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 Hypoglycemia awareness: Yes Last seen by endocrinology 11/30/2022. Resumed trulicity at that time. Has not been wearing CGM - alerts her over night Quit drinking pop Has been having higher anxiety as of late - has been weaned off xanax during detox Has resorted to drinking alcohol to fall asleep at night Gained 9 lbs since last OV Stopped acarbose since last OV - was not having lows so stopped Recent A1c results: Hemoglobin A1C (%) Date Value 06/16/2022 6.2 01/21/2022 6.3 03/17/2021 6.0 12/27/2020 6.2 08/13/2020 6.1 Hemoglobin A1C (POCT) (%) Date Value 11/30/2022 6.6 DM complications: none Prior DM medications: Ozempic - cost / [place] coverage Acarbose Current DM regimen: Trulicity 0.75 mg weekly Glucose monitoring: - Frequency of Monitorin-2x a day fasting, before meals - Denies hypoglycemia. - Able to self treat: Not applicable Fastin's Pre meal: 160-170's, With stress during panic attacks: 200-400's Diet: Doing ok with diet Eating at set meal times throughout day - smaller portions Physical activity: Minimal Sedentary Has plans to go to gym once foot heels Health maintenance: Diabetic Foot and Retinal Eye Exam not Overdue Medications, Past History, Allergies Current Medications 02/05/2023 DIABETES THERAPIES Medication Dosage Pharm Subclass acarbose (PRECOSE) 50 mg tablet Take 1 tablet by mouth three times daily. Antihyperglycemic - Alpha-Glucosidase Inhibitors dulaglutide (TRULICITY) 0.75 mg/0.5 mL pen injector Inject 0.75 mg subcutaneously one time a week. Antihyperglycemic - Glucagon-Like Peptide-1 (GLP-1) Receptor Agonists OTHER Medication Dosage Pharm Subclass ALPRAZolam (XANAX) 0.25 mg tablet Take 0.5 tablets by mouth as needed. Antianxiety Agent - Benzodiazepines BIPAP Lifetime supplies for BiPAP 12/8 cm H20 including mask, heated tubing, humidity, filters. Dx: G47.33 Medical Supply, [employer] Superset blood sugar diagnostic (TRUE METRIX GLUCOSE TEST STRIP) test strip Use as instructed to check glucose 4 x daily or more as needed. Medical Supplies and DME - Blood Glucose Tests Blood-Glucose Sensor (FREESTYLE NBA 3 SENSOR) vinny Use to check glucose 4 times or more daily. Change sensor every 14 days. Medical Supplies and DME - Glucose Monitoring Test Supplies busPIRone (BUSPAR) 7.5 mg tablet Take 7.5 mg by mouth three times a day. Antianxiety Agent - Non-Benzodiazepine CPAP/BIPAP/OTHER Type .CPAPSettings into a note to see current settings/supplies/DME information. Medical Supply, [employer] Superset CPAP/BIPAP/OTHER Type .CPAPSettings into a note to see current settings/supplies/DME information. Medical Supply, [employer] Superset cyanocobalamin 1,000 mcg/mL inject 1 milliliter intramuscularly ONCE A MONTH as instructed Vitamins - B-12, Cyanocobalamin and derivatives diclofenac (VOLTAREN ARTHRITIS PAIN) 1 % topical gel Apply 4 g to affected area four times daily. Dermatological - NSAID Single Agents ergocalciferol 50,000 unit capsule (VITAMIN D2, DRISDOL) Take 1 capsule by mouth three times a week. Vitamins - D Derivatives escitalopram oxalate (LEXAPRO) 10 mg tablet Take 10 mg by mouth once daily. Antidepressant - Selective Serotonin Reuptake Inhibitors (SSRIs) glucagon (BAQSIMI) 3 mg/actuation nasal spray Use 1 [place] in the nose as needed for low blood sugar. May repeat after 15 minutes using a new device if there is no response. Agents to treat Hypoglycemia (Hyperglycemics) hydrOXYzine pamoate (VISTARIL) 25 mg capsule Take 25 mg by mouth two times a day as needed for anxiety. Antianxiety Agent - Antihistamine Type levothyroxine (SYNTHROID) 75 mcg tablet Take 1 tablet by mouth once daily. Thyroid Hormones - Synthetic T4 (Thyroxine) meclizine (ANTIVERT) 25 mg tab Take 0.5-1 tablets by mouth three times daily as needed (for dizziness.). Antiemetic - Antihistamines Mirtazapine (REMERON) 7.5 mg tablet Take 7.5 mg by mouth daily at bedtime. Antidepressant - Alpha-2 Receptor Antagonists (NaSSA) pantoprazole DR (PROTONIX) 40 mg tablet Take 1 tablet by mouth as needed. Gastric Acid Secretion Waistline Joiner Overlock - Proton Pump Inhibitors (PPIs) promethazine (PHENERGAN) 25 mg tablet Take 25 mg by mouth four times daily as needed. Antihistamine - 1st Generation - Phenothiazines rOPINIRole (REQUIP) 0.5 mg tablet Take 0.5 (more content not included)... [facility] 01-21-2023 History of Past i llness Narrative Problem Noted Date Diagnosed Date Resolved Date Malignant tumor of thyroid gland 01/21/2023 01/22/20 23 01/22/2023 Generalized anxiety disorder 01/09/2023 01/21/2023 01/22/2023 Palpitations 10/07/2022 10/23/2022 Obesity, Class I, BMI 30-34.9 01/10/2018 10/23/2022 Morbid obesity 11/24/2016 10/23/2022 Morbid obesity due to excess calories 08/31/2016 12/01/2016 Overview: Added automatically from request for surgery [id number] Hernia, paraesophageal 08/31/201612/01 Overview: Added automatically from request for surgery [id number] Mitral and aortic valve regurgitation 09/08/2009 10/23/2022 Overview: Aortic insufficiency EF 60% DR Zuniga -- judged to be non-surgical and mild documented as of this encounter (statuses as of 03/23/2023) [facility] History of Past illness Narrative* Problem Noted Date Diagnosed Date Resolved Date Malignant tumor of thyroid gland 01/21/2023 01/22/20 23 01/22/2023 Generalized anxiety disorder 01/09/2023 01/21/2023 01/22/2023 Palpitations 10/07/2022 10/23/2022 Obesity, Class I, BMI 30-34.9 01/10/2018 10/23/2022 Morbid obesity 11/24/2016 10/23/2022 Morbid obesity due to excess calories 08/31/2016 12/01/2016 Overview: Added automatically from request for surgery [id number] Hernia, paraesophageal 08/31/201612/01 Overview: Added automatically from request for surgery [id number] Mitral and aortic valve regurgitation 09/08/2009 10/23/2022 Overview: Aortic insufficiency EF 60% DR Zuniga -- judged to be non-surgical and mild documented as of this encounter (statuses as of 03/24/2023) [facility] History of Past illness Narrative* Problem Noted Date Diagnosed Date Resolved Date Malignant tumor of thyroid gland 01/21/2023 01/22/20 23 01/22/2023 Generalized anxiety disorder 01/09/2023 01/21/2023 01/22/2023 Palpitations 10/07/2022 10/23/2022 Obesity, Class I, BMI 30-34.9 01/10/2018 10/23/2022 Morbid obesity 11/24/2016 10/23/2022 Morbid obesity due to excess calories 08/31/2016 12/01/2016 Overview: Added automatically from request for surgery [id number] Hernia, paraesophageal 08/31/201612/01 Overview: Added automatically from request for surgery [id number] Mitral and aortic valve regurgitation 09/08/2009 10/23/2022 Overview: Aortic insufficiency EF 60% DR Zuniga -- judged to be non-surgical and mild documented as of this encounter (statuses as of 03/26/2023) [facility] History of Past illness Narrative* Problem Noted Date Diagnosed Date Resolved Date Malignant tumor of thyroid gland 01/21/2023 01/22/2001/22/2023 Generalized anxiety disorder 01/09/2023 01/21/2023 01/22/2023 Palpitations 10/07/2022 10/23/2022 Obesity, Class I, BMI 30-34.9 01/10/2018 10/23/2022 Morbid obesity 11/24/2016 10/23/2022 Morbid obesity due to excess calories 08/31/2016 12/01/2016 Overview: Added automatically from request for surgery [id number] Hernia, paraesophageal 08/31/201612/01 Overview: Added automatically from request for surgery [id number] Mitral and aortic valve regurgitation 09/08/2009 10/23/2022 Overview: Aortic insufficiency EF 60% DR Zuniga -- judged to be non-surgical and mild documented as of this encounter (statuses as of 03/31/2023) [facility] History of Past illness Narrative* Problem Noted Date Diagnosed Date Resolved Date Malignant tumor of thyroid gland 01/21/2023 01/22/2001/22/2023 Generalized anxiety disorder 01/09/2023 01/21/2023 01/22/2023 Palpitations 10/07/2022 10/23/2022 Obesity, Class I, BMI 30-34.9 01/10/2018 10/23/2022 Morbid obesity 11/24/2016 10/23/2022 Morbid obesity due to excess calories 08/31/2016 12/01/2016 Overview: Added automatically from request for surgery [id number] Hernia, paraesophageal 08/31/201612/01 Overview: Added automatically from request for surgery [id number] Mitral and aortic valve regurgitation 09/08/2009 10/23/2022 Overview: Aortic insufficiency EF 60% DR Zuniga -- judged to be non-surgical and mild documented as of this encounter (statuses as of 04/01/2023) [facility] History of Past illness Narrative* Problem Noted Date Diagnosed Date Resolved Date Malignant tumor of thyroid gland 01/21/2023 01/22/2001/22/2023 Generalized anxiety disorder 01/09/2023 01/21/2023 01/22/2023 Palpitations 10/07/2022 10/23/2022 Obesity, Class I, BMI 30-34.9 01/10/2018 10/23/2022 Morbid obesity 11/24/2016 10/23/2022 Morbid obesity due to excess calories 08/31/2016 12/01/2016 Overview: Added automatically from request for surgery [id number] Hernia, paraesophageal 08/31/201612/01 Overview: Added automatically from request for surgery [id number] Mitral and aortic valve regurgitation 09/08/2009 10/23/2022 Overview: Aortic insufficiency EF 60% DR Zuniga -- judged to be non-surgical and mild documented as of this encounter (statuses as of 04/01/2023) [facility] History of Past illness Narrative* Problem Noted Date Diagnosed Date Resolved Date Malignant tumor of thyroid gland 01/21/2023 01/22/2001/22/2023 Generalized anxiety disorder 01/09/2023 01/21/2023 01/22/2023 Palpitations 10/07/2022 10/23/2022 Obesity, Class I, BMI 30-34.9 01/10/2018 10/23/2022 Morbid obesity 11/24/2016 10/23/2022 Morbid obesity due to excess calories 08/31/2016 12/01/2016 Overview: Added automatically from request for surgery [id number] Hernia, paraesophageal 08/31/201612/01 Overview: Added automatically from request for surgery [id number] Mitral and aortic valve regurgitation 09/08/2009 10/23/2022 Overview: Aortic insufficiency EF 60% DR Zuniga -- judged to be non-surgical and mild documented as of this encounter (statuses as of 04/02/2023) [facility] History of Past illness Narrative* Problem Noted Date Diagnosed Date Resolved Date Malignant tumor of thyroid gland 01/21/2023 01/22/2001/22/2023 Generalized anxiety disorder 01/09/2023 01/21/2023 01/22/2023 Palpitations 10/07/2022 10/23/2022 Obesity, Class I, BMI 30-34.9 01/10/2018 10/23/2022 Morbid obesity 11/24/2016 10/23/2022 Morbid obesity due to excess calories 08/31/2016 12/01/2016 Overview: Added automatically from request for surgery [id number] Hernia, paraesophageal 08/31/201612/01 Overview: Added automatically from request for surgery [id number] Mitral and aortic valve regurgitation 09/08/2009 10/23/2022 Overview: Aortic insufficiency EF 60% DR Zuniga -- judged to be non-surgical and mild documented as of this encounter (statuses as of 04/02/2023) [facility] History of Past illness Narrative* Problem Noted Date Diagnosed Date Resolved Date Malignant tumor of thyroid gland 01/21/2023 01/22/2001/22/2023 Generalized anxiety disorder 01/09/2023 01/21/2023 01/22/2023 Palpitations 10/07/2022 10/23/2022 Obesity, Class I, BMI 30-34.9 01/10/2018 10/23/2022 Morbid obesity 11/24/2016 10/23/2022 Morbid obesity due to excess calories 08/31/2016 12/01/2016 Overview: Added automatically from request for surgery [id number] Hernia, paraesophageal 08/31/201612/01 Overview: Added automatically from request for surgery [id number] Mitral and aortic valve regurgitation 09/08/2009 10/23/2022 Overview: Aortic insufficiency EF 60% DR Zuniga -- judged to be non-surgical and mild documented as of this encounter (statuses as of 04/07/2023) [facility] History of Past illness Narrative* Problem Noted Date Diagnosed Date Resolved Date Malignant tumor of thyroid gland 01/21/2023 01/22/20 23 01/22/2023 Generalized anxiety disorder 01/09/2023 01/21/2023 01/22/2023 Palpitations 10/07/2022 10/23/2022 Obesity, Class I, BMI 30-34.9 01/10/2018 10/23/2022 Morbid obesity 11/24/2016 10/23/2022 Morbid obesity due to excess calories 08/31/2016 12/01/2016 Overview: Added automatically from request for surgery [id number] Hernia, paraesophageal 08/31/201612/01 Overview: Added automatically from request for surgery [id number] Mitral and aortic valve regurgitation 09/08/2009 10/23/2022 Overview: Aortic insufficiency EF 60% DR Zuniga -- judged to be non-surgical and mild documented as of this encounter (statuses as of 04/14/2023) [facility] History of Past illness Narrative* Problem Noted Date Diagnosed Date Resolved Date Malignant tumor of thyroid gland 01/21/2023 01/22/20 23 01/22/2023 Generalized anxiety disorder 01/09/2023 01/21/2023 01/22/2023 Palpitations 10/07/2022 10/23/2022 Obesity, Class I, BMI 30-34.9 01/10/2018 10/23/2022 Morbid obesity 11/24/2016 10/23/2022 Morbid obesity due to excess calories 08/31/2016 12/01/2016 Overview: Added automatically from request for surgery [id number] Hernia, paraesophageal 08/31/201612/01 Overview: Added automatically from request for surgery [id number] Mitral and aortic valve regurgitation 09/08/2009 10/23/2022 Overview: Aortic insufficiency EF 60% DR Zuniga -- judged to be non-surgical and mild documented as of this encounter (statuses as of 04/14/2023) [facility] History of Past illness Narrative* Problem Noted Date Diagnosed Date Resolved Date Malignant tumor of thyroid gland 01/21/2023 01/22/2001/22/2023 Generalized anxiety disorder 01/09/2023 01/21/2023 01/22/2023 Palpitations 10/07/2022 10/23/2022 Obesity, Class I, BMI 30-34.9 01/10/2018 10/23/2022 Morbid obesity 11/24/2016 10/23/2022 Morbid obesity due to excess calories 08/31/2016 12/01/2016 Overview: Added automatically from request for surgery [id number] Hernia, paraesophageal 08/31/201612/01 Overview: Added automatically from request for surgery [id number] Mitral and aortic valve regurgitation 09/08/2009 10/23/2022 Overview: Aortic insufficiency EF 60% DR Zuniga -- judged to be non-surgical and mild documented as of this encounter (statuses as of 04/15/2023) [facility] History of Past illness Narrative* Problem Noted Date Diagnosed Date Resolved Date Malignant tumor of thyroid gland 01/21/2023 01/22/20 23 01/22/2023 Generalized anxiety disorder 01/09/2023 01/21/2023 01/22/2023 Palpitations 10/07/2022 10/23/2022 Obesity, Class I, BMI 30-34.9 01/10/2018 10/23/2022 Morbid obesity 11/24/2016 10/23/2022 Morbid obesity due to excess calories 08/31/2016 12/01/2016 Overview: Added automatically from request for surgery [id number] Hernia, paraesophageal 08/31/201612/01 Overview: Added automatically from request for surgery [id number] Mitral and aortic valve regurgitation 09/08/2009 10/23/2022 Overview: Aortic insufficiency EF 60% DR Zuniga -- judged to be non-surgical and mild documented as of this encounter (statuses as of 04/15/2023) [facility]12-14-2023 History of Past illness Narrative* Problem Noted Date Diagnosed Date Resolved Date Malignant tumor of thyroid gland 01/21/2023 01/22/2001/22/2023 Generalized anxiety disorder 01/09/2023 01/21/2023 01/22/2023 Palpitations 10/07/2022 10/23/2022 Obesity, Class I, BMI 30-34.9 01/10/2018 10/23/2022 Morbid obesity 11/24/2016 10/23/2022 Morbid obesity due to excess calories 08/31/2016 12/01/2016 Overview: Added automatically from request for surgery [id number] Hernia, paraesophageal 08/31/201612/01 Overview: Added automatically from request for surgery [id number] Mitral and aortic valve regurgitation 09/08/2009 10/23/2022 Overview: Aortic insufficiency EF 60% DR Zuniga -- judged to be non-surgical and mild documented as of this encounter (statuses as of 04/15/2023) [facility]12-14-2023 History of Past illness Narrative* Problem Noted Date Diagnosed Date Resolved Date Malignant tumor of thyroid gland 01/21/2023 01/22/2001/22/2023 Generalized anxiety disorder 01/09/2023 01/21/2023 01/22/2023 Palpitations 10/07/2022 10/23/2022 Obesity, Class I, BMI 30-34.9 01/10/2018 10/23/2022 Morbid obesity 11/24/2016 10/23/2022 Morbid obesity due to excess calories 08/31/2016 12/01/2016 Overview: Added automatically from request for surgery [id number] Hernia, paraesophageal 08/31/201612/01 Overview: Added automatically from request for surgery [id number] Mitral and aortic valve regurgitation 09/08/2009 10/23/2022 Overview: Aortic insufficiency EF 60% DR Zuniga -- judged to be non-surgical and mild documented as of this encounter (statuses as of 04/15/2023) [facility] History of Past illness Narrative* Problem Noted Date Diagnosed Date Resolved Date Malignant tumor of thyroid gland 01/21/2023 01/22/2001/22/2023 Generalized anxiety disorder 01/09/2023 01/21/2023 01/22/2023 Palpitations 10/07/2022 10/23/2022 Obesity, Class I, BMI 30-34.9 01/10/2018 10/23/2022 Morbid obesity 11/24/2016 10/23/2022 Morbid obesity due to excess calories 08/31/2016 12/01/2016 Overview: Added automatically from request for surgery [id number] Hernia, paraesophageal 08/31/201612/01 Overview: Added automatically from request for surgery [id number] Mitral and aortic valve regurgitation 09/08/2009 10/23/2022 Overview: Aortic insufficiency EF 60% DR Zuniga -- judged to be non-surgical and mild documented as of this encounter (statuses as of 04/15/2023) [facility]12-14-[facility] History of Past illness Narrative* Problem Noted Date Diagnosed Date Resolved Date Malignant tumor of thyroid gland 01/21/2023 01/22/2001/22/2023 Generalized anxiety disorder 01/09/2023 01/21/2023 01/22/2023 Palpitations 10/07/2022 10/23/2022 Obesity, Class I, BMI 30-34.9 01/10/2018 10/23/2022 Morbid obesity 11/24/2016 10/23/2022 Morbid obesity due to excess calories 08/31/2016 12/01/2016 Overview: Added automatically from request for surgery [id number] Hernia, paraesophageal 08/31/201612/01 Overview: Added automatically from request for surgery [id number] Mitral and aortic valve regurgitation 09/08/2009 10/23/2022 Overview: Aortic insufficiency EF 60% DR Zuniga -- judged to be non-surgical and mild documented as of this encounter (statuses as of 04/16/2023) [facility] History of Past illness Narrative* Problem Noted Date Diagnosed Date Resolved Date Malignant tumor of thyroid gland 01/21/2023 01/22/2001/22/2023 Generalized anxiety disorder 01/09/2023 01/21/2023 01/22/2023 Palpitations 10/07/2022 10/23/2022 Obesity, Class I, BMI 30-34.9 01/10/2018 10/23/2022 Morbid obesity 11/24/2016 10/23/2022 Morbid obesity due to excess calories 08/31/2016 12/01/2016 Overview: Added automatically from request for surgery [id number] Hernia, paraesophageal 08/31/201612/01 Overview: Added automatically from request for surgery [id number] Mitral and aortic valve regurgitation 09/08/2009 10/23/2022 Overview: Aortic insufficiency EF 60% DR Zuniga -- judged to be non-surgical and mild documented as of this encounter (statuses as of 04/16/2023) [facility] History of Past illness Narrative* Problem Noted Date Diagnosed Date Resolved Date Malignant tumor of thyroid gland 01/21/2023 01/22/20 23 01/22/2023 Generalized anxiety disorder 01/09/2023 01/21/2023 01/22/2023 Palpitations 10/07/2022 10/23/2022 Obesity, Class I, BMI 30-34.9 01/10/2018 10/23/2022 Morbid obesity 11/24/2016 10/23/2022 Morbid obesity due to excess calories 08/31/2016 12/01/2016 Overview: Added automatically from request for surgery [id number] Hernia, paraesophageal 08/31/201612/01 Overview: Added automatically from request for surgery [id number] Mitral and aortic valve regurgitation 09/08/2009 10/23/2022 Overview: Aortic insufficiency EF 60% DR Zuniga -- judged to be non-surgical and mild documented as of this encounter (statuses as of 04/19/2023) [facility] History of Past illness Narrative* Problem Noted Date Diagnosed Date Resolved Date Malignant tumor of thyroid gland 01/21/2023 01/22/2001/22/2023 Generalized anxiety disorder 01/09/2023 01/21/2023 01/22/2023 Palpitations 10/07/2022 10/23/2022 Obesity, Class I, BMI 30-34.9 01/10/2018 10/23/2022 Morbid obesity 11/24/2016 10/23/2022 Morbid obesity due to excess calories 08/31/2016 12/01/2016 Overview: Added automatically from request for surgery [id number] Hernia, paraesophageal 08/31/201612/01 Overview: Added automatically from request for surgery [id number] Mitral and aortic valve regurgitation 09/08/2009 10/23/2022 Overview: Aortic insufficiency EF 60% DR Zuniga -- judged to be non-surgical and mild documented as of this encounter (statuses as of 04/21/2023) [facility] History of Past illness Narrative* Problem Noted Date Diagnosed Date Resolved Date Malignant tumor of thyroid gland 01/21/2023 01/22/2001/22/2023 Generalized anxiety disorder 01/09/2023 01/21/2023 01/22/2023 Palpitations 10/07/2022 10/23/2022 Obesity, Class I, BMI 30-34.9 01/10/2018 10/23/2022 Morbid obesity 11/24/2016 10/23/2022 Morbid obesity due to excess calories 08/31/2016 12/01/2016 Overview: Added automatically from request for surgery [id number] Hernia, paraesophageal 08/31/201612/01 Overview: Added automatically from request for surgery [id number] Mitral and aortic valve regurgitation 09/08/2009 10/23/2022 Overview: Aortic insufficiency EF 60% DR Zuniga -- judged to be non-surgical and mild documented as of this encounter (statuses as of 04/22/2023) [facility] History of Past illness Narrative* Problem Noted Date Diagnosed Date Resolved Date Malignant tumor of thyroid gland 01/21/2023 01/22/2001/22/2023 Generalized anxiety disorder 01/09/2023 01/21/2023 01/22/2023 Palpitations 10/07/2022 10/23/2022 Obesity, Class I, BMI 30-34.9 01/10/2018 10/23/2022 Morbid obesity 11/24/2016 10/23/2022 Morbid obesity due to excess calories 08/31/2016 12/01/2016 Overview: Added automatically from request for surgery [id number] Hernia, paraesophageal 08/31/201612/01 Overview: Added automatically from request for surgery [id number] Mitral and aortic valve regurgitation 09/08/2009 10/23/2022 Overview: Aortic insufficiency EF 60% DR Zuniga -- judged to be non-surgical and mild documented as of this encounter (statuses as of 04/23/2023) [facility] History of Past illness Narrative* Problem Noted Date Diagnosed Date Resolved Date Malignant tumor of thyroid gland 01/21/2023 01/22/2001/22/2023 Generalized anxiety disorder 01/09/2023 01/21/2023 01/22/2023 Palpitations 10/07/2022 10/23/2022 Obesity, Class I, BMI 30-34.9 01/10/2018 10/23/2022 Morbid obesity 11/24/2016 10/23/2022 Morbid obesity due to excess calories 08/31/2016 12/01/2016 Overview: Added automatically from request for surgery [id number] Hernia, paraesophageal 08/31/201612/01 Overview: Added automatically from request for surgery [id number] Mitral and aortic valve regurgitation 09/08/2009 10/23/2022 Overview: Aortic insufficiency EF 60% DR Zuniga -- judged to be non-surgical and mild documented as of this encounter (statuses as of 04/24/2023) [facility] History of Past illness Narrative* Problem Noted Date Diagnosed Date Resolved Date Malignant tumor of thyroid gland 01/21/2023 01/22/2001/22/2023 Generalized anxiety disorder 01/09/2023 01/21/2023 01/22/2023 Palpitations 10/07/2022 10/23/2022 Obesity, Class I, BMI 30-34.9 01/10/2018 10/23/2022 Morbid obesity 11/24/2016 10/23/2022 Morbid obesity due to excess calories 08/31/2016 12/01/2016 Overview: Added automatically from request for surgery [id number] Hernia, paraesophageal 08/31/201612/01 Overview: Added automatically from request for surgery [id number] Mitral and aortic valve regurgitation 09/08/2009 10/23/2022 Overview: Aortic insufficiency EF 60% DR Zuniga -- judged to be non-surgical and mild documented as of this encounter (statuses as of 04/26/2023) [facility] History of Past illness Narrative* Problem Noted Date Diagnosed Date Resolved Date Malignant tumor of thyroid gland 01/21/2023 01/22/2001/22/2023 Generalized anxiety disorder 01/09/2023 01/21/2023 01/22/2023 Palpitations 10/07/2022 10/23/2022 Obesity, Class I, BMI 30-34.9 01/10/2018 10/23/2022 Morbid obesity 11/24/2016 10/23/2022 Morbid obesity due to excess calories 08/31/2016 12/01/2016 Overview: Added automatically from request for surgery [id number] Hernia, paraesophageal 08/31/201612/01 Overview: Added automatically from request for surgery [id number] Mitral and aortic valve regurgitation 09/08/2009 10/23/2022 Overview: Aortic insufficiency EF 60% DR Zuniga -- judged to be non-surgical and mild documented as of this encounter (statuses as of 04/27/2023) [facility] History of Past illness Narrative* Problem Noted Date Diagnosed Date Resolved Date Malignant tumor of thyroid gland 01/21/2023 01/22/2001/22/2023 Generalized anxiety disorder 01/09/2023 01/21/2023 01/22/2023 Palpitations 10/07/2022 10/23/2022 Obesity, Class I, BMI 30-34.9 01/10/2018 10/23/2022 Morbid obesity 11/24/2016 10/23/2022 Morbid obesity due to excess calories 08/31/2016 12/01/2016 Overview: Added automatically from request for surgery [id number] Hernia, paraesophageal 08/31/201612/01 Overview: Added automatically from request for surgery [id number] Mitral and aortic valve regurgitation 09/08/2009 10/23/2022 Overview: Aortic insufficiency EF 60% DR Zuniga -- judged to be non-surgical and mild documented as of this encounter (statuses as of 04/30/2023) [facility] History of Past illness Narrative* Problem Noted Date Diagnosed Date Resolved Date Malignant tumor of thyroid gland 01/21/2023 01/22/20 23 01/22/2023 Generalized anxiety disorder 01/09/2023 01/21/2023 01/22/2023 Palpitations 10/07/2022 10/23/2022 Obesity, Class I, BMI 30-34.9 01/10/2018 10/23/2022 Morbid obesity 11/24/2016 10/23/2022 Morbid obesity due to excess calories 08/31/2016 12/01/2016 Overview: Added automatically from request for surgery [id number] Hernia, paraesophageal 08/31/201612/01 Overview: Added automatically from request for surgery [id number] Mitral and aortic valve regurgitation 09/08/2009 10/23/2022 Overview: Aortic insufficiency EF 60% DR Zuniga -- judged to be non-surgical and mild documented as of this encounter (statuses as of 05/04/2023) [facility]12-11-2023 Miscellaneous Notes* Telephone Encounter - Oma Montero LPN - 01/18/2023 2:48 PM EST I called patient to confirm [facility] appt today. She states that she sick and going to test herself forCovid later. She is complaining of low grade fever, fatigue and overall malaise since last week. I advised that she should reschedule today's appt until she is feeling better. She is requesting [facility] schedulers to call her Wednesday to reschedule appt. Please also cancel today's appt. Thank you, Oma Montero LPN January 18, 2023 2:50 PM [facility] Hospital Discharge instructions Patient Education 01/14/2023 16:00:56 Nonspecific Chest Pain, Adult Nonspecific Chest Pain, Adult Chest pain is an uncomfortable, tight, or painful feeling in the chest. The pain can feel like a crushing, aching, or squeezing pressure. A person can feel a burning or tingling sensation. Chest paincan also be felt in your back, neck, jaw, shoulder, or arm. This pain can be worse when you move, sneeze, or take a deep breath. Chest pain can be caused by a condition that is life-threatening. This must be treated right away. It can also be caused by something that is not life- threatening. If you have chest pain, it can be hard to know the difference, so it is important to get help right away to make sure that you do not have a serious condition. Some life-threatening causes of chest pain include: Heart attack. A tear in the body's main blood vessel (aortic dissection). Inflammation around your heart (pericarditis). A problem in the lungs, such as a blood clot (pulmonary embolism) or a collapsed lung (pneumothorax). Some non life-threatening causes of chest pain include: Heartburn. Anxiety or stress. Damage to the bones, muscles, and cartilage that make up your chest wall. Pneumonia or bronchitis. Shingles infection (varicella-zoster virus). Your chest pain may come and go. It may also be constant. Your health care provider will do tests and other studies to find the cause of your pain. Treatment will depend on the cause of your chest pain. Follow these instructions at home: Medicines Take erpg-pzl-actbbay and prescription medicines only as told by your health care provider. If you were prescribed an antibiotic medicine, take it as told by your health care provider. Do notstop taking the antibiotic even if you start to feel better. Activity Avoid any activities that cause chest pain. Do not lift anything that is heavier than 10 lb (4.5 kg), or the limit that you are told, until your health care provider says that it is safe. Rest as directed by your health care provider. Return to your normal activities only as told by your health care provider. Ask your health care provider what activities are safe for you. Lifestyle Do not use any products that contain nicotine or tobacco, such as cigarettes, e- cigarettes, and chewing tobacco. If you need help quitting, ask your health care provider. Do not drink alcohol. Make healthy lifestyle changes as recommended. These may include: ?Getting regular exercise. Ask your health care provider to suggest some exercises that are safe for you. ?Eating a heart-healthy diet. This includes plenty of fresh fruits and vegetables, whole grains, low-fat (lean) protein, and low-fat dairy products. A dietitian can help you find healthy eating options. ?Maintaining a healthy weight. ?Managing any other health conditions you may have, such as high blood pressure (hypertension) or diabetes. ?Reducing stress, such as with yoga or relaxation techniques. General instructions Pay attention to any changes in your symptoms. It is up to you to get the results of any tests that were done. Ask your health care provider, or the department that is doing the tests, when your results will be ready. Keep all follow-up visits as told by your health care provider. This is important. You may be asked to go for further testing if your chest pain does not go away. Contact a health care provider if: Your chest pain does not go away. You feel depressed. You have a fever. You notice changes in your symptoms or develop new symptoms. Get help right away if: Your chest pain gets worse. You have a cough that gets worse, or you cough up blood. You have severe pain in your abdomen. You faint. You have sudden, unexplained chest discomfort. You have sudden, unexplained discomfort in your arms, back, neck, or jaw. You have shortness of breath at any time. You suddenly start to sweat, or your skin gets clammy. You feel nausea or you vomit. You suddenly feel lightheaded or dizzy. You have severe weakness, or unexplained weakness or fatigue. Your heart begins to beat quickly, or it feels like it is skipping beats. These symptoms may represent a serious problem that is an emergency. Do not wait to see if the symptoms will go away. Get medical help right away. Call your local emergency services (911 in the [place] Do not drive yourself to the hospital. Summary Chest pain can be caused by a condition that is serious and requires urgent treatment. It may also be caused by something that is not life-threatening. Your health care provider may do lab tests and other studies to find the cause of your pain. Follow your health care provider's instructions on taking medicines, making lifestyle changes, and getting emergency treatment if symptoms become worse. Keep all follow-up visits as told by your health care provider. This includes visits for any further testing if your chest pain does not go away. This information is not intended to replace advice given to you by your health care provider. Make sure you discuss any questions you have with your health care provider. Document Revised: 04/10/2021 Document Reviewed: 04/10/2021 [employer] Patient Education 2022 [employer]. Follow Up Care 01/14/2023 10:44:11 With:Farhat Pineda Address: [address] [place] [address] [address] [phone] (1) When:01/17/2023 15:42:38 [facility]12-07-2023 Evaluation + Plan noteExtracted from: Title:ED Note Author:Lloyd PINA, Dillon Garcia te:01/14/23 Chest pain (R07.9: Chest sondra n, unspecified) Orders: lorazepam, 1 mg = 1 tab(s), Tab, Oral, Once, Stop date 01/14/23 15:44:00 EST, STAT, Start date 01/14/23 15:44:00 EST, 01/14/23 15:44:00 EST lorazepam, 2 mg = 2 tab(s), Tab, Oral, Once, Stop date 01/14/23 11:11:00 EST, STAT, Start date 01/14/23 11:11:00 EST, 01/14/23 11:11:00 EST ECG 12 Lead Adult [facility]12-06-2023 Miscellaneous Notes* Telephone Encounter - Mimi Gonzales LPN - 01/13/2023 10:31 AM EST Patient not here for [facility] appt today. Attempted to reach via phone call, no answer. Left message with [facility] scheduling number. Please assist with rescheduling. Mimi Gonzales LPN documented [facility]11[facility] NoteHNO ID: [id number] Author: Eleanor Kenny, DO Service: ? Author Type: Physician Type: Progress Notes Filed: 01/11/2023 11:47 PM Note Text: CC: PMB Follow Up: Esme Morfin 47 year old here for follow up OV for postmenopausal bleeding. Reports no menses in 2 years, postmenopausal, in 08/2022 had VB for 7 days with clots and cramping, bright red. No HRT. 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 Mitral and aortic valve regurgitation 09/08/2009 Aortic insufficiency EF 60% DR Zuniga -- judged to be non-surgical and mild Nephrolithiasis TALIA (obstructive sleep apnea) 2015 on CPAP and BiPAP Postoperative malabsorption 03/04/2017 Rheumatoid arthritis (HCC) was treated with mtx plaquenil in past Thyroiditis, unspecified Thyroiditis Viral pneumonia, unspecified Pneumonia Vomiting of fecal matter PAST SURGICAL HISTORY Procedure Laterality Date ANES HRNA REPAIR UPR ABD TABDL RPR DIPHRG HRNA open 2001 COLONOSCOPY FLX DX W/COLLJ SPEC WHEN PFRMD Colonoscopy COLPO OF CERVIX WBIOPSYECC 04/04/2018 ESOPHAGOGASTRODUODENOSCOPY TRANSORAL DIAGNOSTIC EGD multiple GASTRIC BYPASS HX 2017 LAPAROSCOPY SURG CHOLECYSTECTOMY Cholecystectomy, lap LIG/TRNSXJ FLP TUBE ABDL/VAG APPR UNI/BI 1996 PAST SURGICAL HISTORY OF cardiac cath REPAIR PARAESOPHAGEAL HERNIA THYROIDECTOMY TOTAL/COMPLETE 02-04-2010 ? patial/incomplete Review of Systems: INTERNET DATABASE SPECIALIST: SEE HPI The remainder of the review of systems is negative. Exam: BP 130/79 Pulse 80 Ht 5' 3 (1.6 m) Wt 220 lb (99.8 kg) LMP 09/13/2022 (Approximate) BMI 38.97 kg/m? General: a/o x 3, NAD. Abdomen: normal, BS, soft, NT, ND,Body mass index is 38.97 kg/m?. Indication Evaluation of abnormal uterine bleeding: postmenopausal bleeding Impression The uterus is retroverted and measures 71 mm x 37 mm x 49 mm. The endometrial thickness is 6.8 mm. The right ovary measures 22 mm x 17 mm x 14 mm. There is a 1.5cm complex appearing cyst. It has some internal debris and an echogenic focus. The left ovary measures 22 mm x 19 mm x 16 mm. Physiological in appearance. There is no free fluid visualized. Recommendations Clinically correlate. Endometrial lining as above. O-RADS 2 ovarian lesion, non-simple cyst, likely benign. Follow up ultrasound is recommended in 8-12 weeks. Menstrual History Cycle: menopausal Method Transabdominal, transvaginal, 3D ultrasound examination, Color Doppler examination Uterus Uterus: Visualized Uterus position: retroverted Description of uterine malformations: normally shaped Myometrium: normal Endometrium: thickened Cervix details: normal Uterus long 71 mm Uterus ap 37 mm Uterus tr 49 mm Uterus Vol 66.2 cm? Endometrial thickness, total 6.8 mm Right Ovary Rt ovary: Visualized Outline: smooth Rt ovary D1 22 mm Rt ovary D2 17 mm Rt ovary D3 14 mm Rt ovary Vol 2.9 cm? Rt ovarian cyst(s): Cysts identified Rt ovarian cyst D1 13 mm Rt ovarian cyst D2 10 mm Rt ovarian cyst D3 11 mm Rt ovarian cyst mean 11.3 mm Rt ovarian cyst vol 0.749 cm? Rt ovarian cyst findings: Unilocular non-simple cyst (internal debris and/or incomplete septation) with smooth inner wall, echogenic foci Left Ovary Lt ovary: Visualized Outline: smooth Lt ovary morphology: normal Lt ovary D1 22 mm Lt ovary D2 19 mm Lt ovary D3 16 mm Lt ovary Vol 3.6 cm? Cul de Sac Visualized. no free fluid visualized Performed By: Jocelyne Han RDMS Read By: Janene Harrison M.D. FINAL DIAGNOSIS A. Endometrium biopsy - Strips of benign endometrial epithelium without supporting stroma - Focal findings suggestive of endometrial polyp - Rare strips of benign endocervical tissue and squamous epithelium SSMENT/PROBLEM LIST/PLANS: 47 year old WF here for PMB Follow Up: 1.) US as copied above reviewed in detail with Esme, discussed endometrial biopsy as an initial test for women with abnormal uterine bleeding due to its high sensitivity, low complication rate, and low cost. Endometrial biopsy is a more cost-effective initial approach than ultrasound when the prevalence of endometrial carcinoma is at least 15 percent. Endometrial biopsy is required for histological diagnosis if the endometrium is not adequately visualized, the stripe is ?4 mm (focal or global), and in women with persistent bleeding. Blind biopsy is most accurate in women with a globally thickened endometrium; visually directed sampling (ie, hystero (more content not included)...[facility] 01-05-2023 History of Present illness Narrative* OdilonEleanor cueva, DO - 01/05/2023 3:08 PM EST CC: PMB Follow Up: Esme Morfin 47 year old here for follow up OV for postmenopausal bleeding. Reports no menses in 2 years, postmenopausal, in 08/2022 had VB for 7 days with clots and cramping, bright red. No HRT. 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 Mitral and aortic valve regurgitation 09/08/2009 Aortic insufficiency EF 60% DR Zuniga -- judged to be non-surgical and mild Nephrolithiasis TALIA (obstructive sleep apnea) 2015 on CPAP and BiPAP Postoperative malabsorption 03/04/2017 Rheumatoid arthritis (HCC) was treated with mtx plaquenil in past Thyroiditis, unspecified Thyroiditis Viral pneumonia, unspecified Pneumonia Vomiting of fecal matter PAST SURGICAL HISTORY Procedure Laterality Date ANES HRNA REPAIR UPR ABD TABDL RPR DIPHRG HRNA open 2001 COLONOSCOPY FLX DX W/COLLJ SPEC WHEN PFRMD Colonoscopy COLPO OF CERVIX WBIOPSYECC 04/04/2018 ESOPHAGOGASTRODUODENOSCOPY TRANSORAL DIAGNOSTIC EGD multiple GASTRIC BYPASS HX 2017 LAPAROSCOPY SURG CHOLECYSTECTOMY Cholecystectomy, lap LIG/TRNSXJ FLP TUBE ABDL/VAG APPR UNI/BI 1996 PAST SURGICAL HISTORY OF cardiac cath REPAIR PARAESOPHAGEAL HERNIA THYROIDECTOMY TOTAL/COMPLETE 02-04-2010 ? patial/incomplete Review of Systems: INTERNET DATABASE SPECIALIST: SEE HPI The remainder of the review of systems is negative. Exam: BP 130/79 Pulse 80 Ht 5' 3 (1.6 m) Wt 220 lb (99.8 kg) LMP 09/13/2022 (Approximate) BMI 38.97 kg/m General: a/o x 3, NAD. Abdomen: normal, BS, soft, NT, ND,Body mass index is 38.97 kg/m . Indication Evaluation of abnormal uterine bleeding: postmenopausal bleeding Impression The uterus is retroverted and measures 71 mm x 37 mm x 49 mm. The endometrial thickness is 6.8 mm. The right ovary measures 22 mm x 17 mm x 14 mm. There is a 1.5cm complex appearing cyst. It has some internal debris and an echogenic focus. The left ovary measures 22 mm x 19 mm x 16 mm. Physiological in appearance. There is no free fluid visualized. Recommendations Clinically correlate. Endometrial lining as above. O-RADS 2 ovarian lesion, non-simple cyst, likely benign. Follow up ultrasound is recommended in 8-12 weeks. Menstrual History Cycle: menopausal Method Transabdominal, transvaginal, 3D ultrasound examination, Color Doppler examination Uterus Uterus: Visualized Uterus position: retroverted Description of uterine malformations: normally shaped Myometrium: normal Endometrium: thickened Cervix details: normal Uterus long 71 mm Uterus ap 37 mm Uterus tr 49 mm Uterus Vol 66.2 cm Endometrial thickness, total 6.8 mm Right Ovary Rt ovary: Visualized Outline: smooth Rt ovary D1 22 mm Rt ovary D2 17 mm Rt ovary D3 14 mm Rt ovary Vol 2.9 cm Rt ovarian cyst(s): Cysts identified Rt ovarian cyst D1 13 mm Rt ovarian cyst D2 10 mm Rt ovarian cyst D3 11 mm Rt ovarian cyst mean 11.3 mm Rt ovarian cyst vol 0.749 cm Rt ovarian cyst findings: Unilocular non-simple cyst (internal debris and/or incomplete septation) with smooth inner wall, echogenic foci Left Ovary Lt ovary: Visualized Outline: smooth Lt ovary morphology: normal Lt ovary D1 22 mm Lt ovary D2 19 mm Lt ovary D3 16 mm Lt ovary Vol 3.6 cm Cul de Sac Visualized. no free fluid visualized Performed By: Jocelyne Han RDMS Read By: Janene Harrison M.D. FINAL DIAGNOSIS A. Endometrium biopsy - Strips of benign endometrial epithelium without supporting stroma - Focal findings suggestive of endometrial polyp - Rare strips of benign endocervical tissue and squamous epithelium SSMENT/PROBLEM LIST/PLANS: 47 year old WF here for PMB Follow Up: 1.) US as copied above reviewed in detail with Esme, discussed endometrial biopsy as an initial test for women with abnormal uterine bleeding due to its high sensitivity, low complication rate, andlow cost. Endometrial biopsy is a more cost-effective initial approach than ultrasound when the prevalence of endometrial carcinoma is at least 15 percent. Endometrial biopsy is required for histological diagnosis if the endometrium is not adequately visualized, the stripe is ?4 mm (focal or global), and in women with persistent bleeding. Blind biopsy is most accurate in women with a globally thickened endometrium; visually directed sampling (ie, hysteroscopy) is preferable for women with focal abnormalities. TVUS is an acceptable alternative initial test in postmenopausal women who cannot tolerate office biopsy, or in women who need concurrent evaluation of the adnexae. A summary of the literature suggests that using an endometrial cutoff of <4 mm would yield a false negative rate forendometrial cancer of 0.25 to 0.5 percent, which compares favorably with the false negative rate reported for endometrial biopsy. R/B/I/P for Endometrial Biopsy discussed in detail with patient, EMB at [facility] on Wednesday10/23/2022, informed consent signed, surg request completed and sent, PAT to be scheduled, RTO 2 weeks follow up. As to left 1.5 cm ovarian cyst (O-RADS 2), will repeat US 12 weeks, to call once results reviewed, if indicated will schedule follow up OV. 2.) mammogram still not scheduled, order in [facility] since 06/2022, will schedule at end of OV today. 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 01/05/2034 3:35 PM Eleanor Kenny DO documented in this encounterTol[facility]11-22-2023 NoteHNO ID: [id number] Author: Madelin Sutton APRN.PROBATION AGENT Service: ? Author Type: Nurse Hand Flatwork Finisher Type: Anesthesia Procedure Notes Filed: 12/30/2022 7:53 AM Note Text: ANESTHESIOLOGY PROCEDURE NOTE Airway General Information Procedure Start Time/Medication Administration: 12/30/2022 7:43 AM Patient location during procedure: OR Patient identity confirmed: arm band, care team lead and patient Staffing Anesthesiologist: Alvin Duque MD PROBATION AGENT: Madelin Sutton APRN.PROBATION AGENT Performed by: DANIELA Indications and Patient Condition Indications for airway management: anesthesia Preoxygenated: yes anesthesia circuit Patient position: sniffing Method: asleep Final Airway Details Final airway type: supraglottic airway Number of attempts at approach: 1 Final Supraglottic Airway: IGEL Size 4 Seal Adequate: yes Airway not difficult Comments Lips and teeth preanesthetic condition SIGNATURE: Madelin Sutton APRN.PROBATION AGENT PATIENT NAME: Esme Morfin DATE: December 30, 2022 TIME: 7:53 AM CSN: [id number] Instructions* Patient Instructions* Latanya Beltran APRN.DRILL PRESS HAND - 12/22/2022 2:30 PM EST PATIENT PREOPERATIVE INSTRUCTIONS Eleanor Kenny DO has scheduled you for your procedure at this surgery center: [facility]: [phone] --[id number] [address]. Please check in on the1st floor at registration desk 6. Arrival Time for Surgery: - The Surgery Center or hospital where you are having surgery will call the afternoon before surgery (or Wednesday for Wednesday surgery) with a scheduled arrival time. - If you have not heard by 4 pm, please contact the surgery center above. Please be aware that emergency situations arise, which may delay or change your surgical time. If this happens, we will notify you as soon as possible and regret any inconvenience. Please read below carefully for your personalized instructions. Dietary Restrictions: - No solid food after midnight. - You may have 12 ounces of clear liquids (water, clear juices such as apple juice or gatorade, carbonated beverages, clear tea, black coffee, jello) until 2 hours before scheduled arrival at facility. - Do not drink any alcohol after midnight the night before your surgery. - No Milk/Dairy - No Pulp Juices Medications: Unless instructed differently below, stay on all of your medications until your surgery. Approved medications to take the morning of surgery with a sip of water: Alprazolam (Xanax) Is Patient Diabetic:Yes Preoperative Instructions for Patient's with Diabetes Mellitus Diabetic Medication Instructions:Please take the following meds at your usual dose the day before surgery. please HOLD 1 WEEK PRIOR TO SURGERY: Dulaglutide (Trulicity) If you start any new medications after today's visit, please contact the surgeon's office. Blood Thinning Medications: - Stop NSAIDS (Ibuprofen, Advil, Aleve, Motrin, Celebrex, Mobic, etc.) 7 days before surgery, as directed by your surgeon. - Stop Aspirin 7 days before surgery, as directed by your surgeon. - Stop Vitamin E, ALL multi-vitamins, herbals and dietary supplements 14 days before surgery. - You may take Tylenol (Acetaminophen) or any of your pain medications that do not contain aspirin or NSAIDS as needed. Important Reminders: - Candy, mints, and tobacco products are NOT permitted the morning of surgery. - Hearing aids, dentures and glasses may be worn the morning of surgery. - NO jewelry, body piercings, makeup, hairpins or contacts are to be worn the day of surgery. If you develop symptoms such as a fever, cold, or flu, or have other changes to your health within TWO DAYS of scheduled surgery or the morning of surgery, please contact the surgery center above. Personal Belongings: -Please have photo ID and insurance cards. -If you do not have a copy of advance directives on file with us, please bring a copy with you on the day of surgery. - Leave ALL valuables and money at home or with family members. For Outpatient Procedures: - YOU MUST HAVE A RESPONSIBLE LEAK PATCHER TAKE YOU HOME. A COIL INSPECTOR OR CUPOLA LINER HELPER CANNOT BE MADE A RESPONSIBLE LEAK PATCHER. - We recommend that a responsible person stays with you overnight to take care of you. - You cannot stay in a hotel alone after outpatient surgery. You will not be permitted to have yoursurgery, if you do not have someone to take care of you. If you already have an Advance Directive, please fax a copy to [phone] or email to for it to be added to your chart. If you do not have an Advance Directive, you can find the appropriate form and more information at [email or web address]. We recommend that youcomplete the Advance Directive form found on the website and bring it with you the day of your surgery. It can be witnessed and scanned into your chart that day. documented in this encounterToledo Hospital11-14-2023 History and physical note * Latanya Beltran APRN.CNP - 12/22/2022 2:19 PM EST Images from the original note were not included. Surgeon: Eleanor Kenny DO Type of surgery: ENDOMETRIAL BX W/ ENDOCERVICAL SAMPLING W/O CERVICAL DILATION Patient scheduled for surgery on 12/30/2022 Surgery Location: [place] Assessment/Plan TALIA (obstructive sleep apnea) Assessment: Patient reports ill fitting mask, attempting to increase compliance Esophageal reflux Assessment: S/P gastric bypass and Nessa, Well controlled with PPI Type 2 diabetes mellitus without complication, without long-term current use of insulin (HCC) Assessment: Stable on injectable medication Hemoglobin A1C (%) Date Value 06/16/2022 6.2 01/21/2022 6.3 03/17/2021 6.0 12/27/2020 6.2 08/13/2020 6.1 05/13/2020 6.4 10/03/2019 6.2 Hemoglobin A1C (POCT) (%) Date Value 11/30/2022 6.6 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 Class 2 severe obesity due to excess calories with serious comorbidity and body mass index (BMI) of38.0 to 38.9 in adult Assessment: S/P gastric bypass Body mass index is 38.39 kg/m . ANESTHESIA FINDINGS: Intubation History: No history of difficult intubation Significant Anesthesia Considerations: patient has woke up during EGD and COLONOSCOPY. takes increased amount of medications to be put to sleep Airway Exam: General: Morbid obesity Body mass index is 40.14 kg/m . Mallampati Score is CLASS II ULBT: Class II - Lower incisors can bite the upper lip below the liz line Neck: Normal appearance and function, Distance from hyoid to mentum during neck extension is at least 3 finger breaths, short/thick neck Mouth: Large tongue size and Mouth opening greater than 2 finger breaths Dentition: Partial upper Airway History: No history of difficult intubation most recent airway history - 11/2016, gastric sleeve surgery CC: Patient presents with: Pre-Op Visit HPI: Esme Morfin is a 47 year old year old FEMALE with recent CPE completed on 11/30/2022 located in [facility] by Bipin Nina Encounter reviewed with patient. Patient denies changes. 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 Mitral and aortic valve regurgitation 09/08/2009 Aortic insufficiency EF 60% DR Zuniga -- judged to be non-surgical and mild Nephrolithiasis TALIA (obstructive sleep apnea) 2016 on CPAP and BiPAP Postoperative malabsorption 03/04/2017 Rheumatoid arthritis (HCC) was treated with mtx plaquenil in past Thyroiditis, unspecified Thyroiditis Viral pneumonia, unspecified Pneumonia Vomiting of fecal matter PAST SURGICAL HISTORY Procedure Laterality Date ANES HRNA REPAIR UPR ABD TABDL RPR DIPHRG HRNA open 2001 COLONOSCOPY FLX DX W/COLLJ SPEC WHEN PFRMD Colonoscopy COLPO OF CERVIX WBIOPSYECC 04/04/2018 ESOPHAGOGASTRODUODENOSCOPY TRANSORAL DIAGNOSTIC EGD multiple GASTRIC BYPASS HX 2017 LAPAROSCOPY SURG CHOLECYSTECTOMY Cholecystectomy, lap LIG/TRNSXJ FLP TUBE ABDL/VAG APPR UNI/BI 1996 PAST SURGICAL HISTORY OF cardiac cath REPAIR PARAESOPHAGEAL HERNIA THYROIDECTOMY TOTAL/COMPLETE 02-04-2010 ? patial/incomplete FAMILY HISTORY Problem Relation Age of Onset Thyroid Mother graves' s/p I 131 Glaucoma Mother Heart Father Thyroid Sister goiter. None Sister Garcia's palsy. Diabetes Maternal Grandmother Diabetes Maternal Grandfather Social History Tobacco Use Smoking status: Never Smokeless tobacco: Never Vaping Use Vaping Use: Never used Substance Use Topics Alcohol use: Yes Comment: Social Drug use: No tretinoin (RETIN-A) 0.025 % topical cream Apply to affected area daily at bedtime. Syringe with Needle, Safety (EASY TOUCH SHEATHLOCK SYRG-NDL) 3 mL 25 gauge x 1 syrg Weekly methotrexate injections, monthly vit b12 injections as instructed cyanocobalamin 1,000 mcg/mL inject 1 milliliter intramuscularly ONCE A MONTH as instructed diclofenac (VOLTAREN ARTHRITIS PAIN) 1 % topical gel Apply 4 g to affected area four times daily. dulaglutide (TRULICITY) 0.75 mg/0.5 mL pen injector Inject 0.75 mg subcutaneously one time a week. CPAP/BIPAP/OTHER Type .CPAPSettings into a note to see current settings/supplies/DME information. ergocalciferol 50,000 unit capsule (VITAMIN D2, DRISDOL) Take 1 capsule by mouth two times a week. zaleplon (SONATA) 10 mg capsule Take 10 mg by mouth daily at bedtime. Pt takes 10mg qhs acarbose (PRECOSE) 50 mg tablet Take 1 tablet by mouth three times daily. glucagon (BAQSIMI) 3 mg/actuation nasal spray Use 1 [place] in the nose as needed for low blood sugar. May repeat after 15 minutes using a new device if there is no response. Blood-Glucose Sensor (FREESTYLE NBA 3 SENSOR) vinny Use to check glucose 4 times or more daily. Change sensor every 14 days. blood sugar diagnostic (TRUE METRIX GLUCOSE TEST STRIP) test strip Use as instructed to check glucose 4 x daily or more as needed. CPAP/BIPAP/OTHER Type .CPAPSettings into a note to see current settings/supplies/DME information. ALPRAZolam (XANAX) 0.25 mg tablet Take 0.5 tablets by mouth as needed. meclizine (ANTIVERT) 25 mg tab Take 0.5-1 tablets by mouth three times daily as needed (for dizziness.). BIPAP Lifetime supplies for BiPAP 12/8 cm H20 including mask, heated tubing, humidity, filters. Dx:G47.33 promethazine (PHENERGAN) 25 mg tablet Take 25 mg by mouth four times daily as needed. pantoprazole DR (PROTONIX) 40 mg tablet Take 1 tablet by mouth as needed. levothyroxine (SYNTHROID) 50 mcg tablet Take 1 tablet by mouth once daily. ALLERGIES Allergen Reactions Contrast Dye [Iodin* Other: See Comments Mobic [Meloxicam] Intolerance GI bleed with transfusion Motrin [Ibuprofen] Other: See Comments GI Bleed Nsaids (Non-Steroid* Unknown Prednisone Contraindication-Medical Surgical GI bleed Scopolamine Mental Status Change Paranoia, confusion, hallucination Covid Immunization Dates Overdue - Covid-19 Vaccine (1) Overdue - never done No completion, postpone, frequency change, or communication history exists for this topic. REVIEW OF SYSTEMS: positive findings are BOLD General: No weight loss, malaise or fevers. + Very anxious + Obese Respiratory: Negative for cough, wheezing or shortness of breath. Negative for hemoptysis. + TALIA Cardiovascular: Negative for chest pain, orthopnea, PND, dizziness, lightheadedness or syncope. Negative for heart murmur. Negative for arrhythmia. Negative for h/o DVT/PE. Negative for LE edema. + Intermittent palpitations PHYSICAL EXAMINATION: BP 135/83 Pulse 77 Temp (Src) 97.2 (Temporal) Resp 16 Ht 5' 2.75 (1.59m) Wt 215 lb (97.5kg) SpO2 99% BMI 38.38 kg/(m^2). Alert and oriented, No acute distress, Obese Lungs clear to auscultation. No wheezing, rhonchi, rales. RRR without murmur, gallop, or rubs. No ectopy Diagnostic tests reviewed for today's visit: Lab Value Units Date High Low HB 13.6 g/dL 10/09/2022 15.5 11.5 HCT 42.3 % 10/09/2022 46.0 36.0 WBC 6.26 k/uL 10/09/2022 11.00 3.70 PLT 219 k/uL 10/09/2022 400 150 NA 138 mmol/L 10/09/2022 144 136 K 4.0 mmol/L 10/09/2022 5.1 3.7 GLUC 101 mg/dL 10/09/2022 99 74 BUN 10 mg/dL 10/09/2022 21 7 CREAT 0.92 mg/dL 10/09/2022 0.96 0.58 PTSEC No results within date range. INR No results within date range. APTT No results within date range. ALT No results within date range. AST No results within date range. TBILI No results within date range. TSH 3.800 mIU/L 12/22/2022 4.200 0.270 Hemoglobin A1C (%) Date Value 06/16/2022 6.2 01/21/2022 6.3 03/17/2021 6.0 12/27/2020 6.2 08/13/2020 6.1 05/13/2020 6.4 10/03/2019 6.2 Hemoglobin A1C (POCT) (%) Date Value 11/30/2022 6.6 Most recent EKG: Recent Results (from the past 8760 hour(s)) ECG COMPLETE Collection Time: 10/23/22 3:14 PM Result Value Ventricular Rate 75 Atrial Rate 75 P-R Interval 126 QRS Duration 96 QT Interval 428 QTC Calculation (Bazett) 477 Calculated P [place] -13 Calculated R [place] -55 Calculated T [place] -15 Impression NORMAL SINUS RHYTHM LEFT ANTERIOR FASCICULAR BLOCK NONSPECIFIC T WAVE ABNORMALITY ABNORMAL ECG No Change from 06/16/2022 Confirmed by DARIEL LE MD ([id number]), editor publications LACY NEW ([id number]) on 10/23/2022 3:56:35 PM Most recent EKG Recent Results (from the past 8760 hour(s)) ECG COMPLETE Collection Time: 06/16/22 3:32 PM Result Value Ventricular Rate 81 Atrial Rate 81 P-R Interval 118 QRS Duration 90 QT Interval 404 QTC Calculation (Bazett) 469 Calculated P [place] 3 Calculated R [place] -51 Calculated T [place] 70 Impression NORMAL SINUS RHYTHM LEFT ANTERIOR FASCICULAR BLOCK ABNORMAL ECG Confirmed by NATHAN MARIE M.D. ([id number]) on 06/17/2022 10:48:37 AM Most recent Echo 07/2020 Most recent event monitor 06/2022 event monitor 07/2020 ANESTHESIOLOGY REVIEW: METS: Walk indoors, such as around the house (1.75 METs) Do light work around the house, such as dusting or washing dishes (2.70 METs) Take care of self; that is eating, dressing, bathing, using the toilet (2.75 METs) Climb a flight of stairs or walk up a hill (5.50 METs) Patient denies any chest pain or undue shortness of breath with the above physical activity. STOP BANG Score: TALIA partially compliant with ill fitting mask CPAP/BiPAP PLAN I spent 18 minutes in the visit, with more than 50% of the total [id number] time of the visit in counseling / coordination of care. This patient is optimally prepared for surgery. Per Cardiology OV 10/23/2022: PLAN: -OSH Event monitor report is somewhat confusing as it states that the longest episode of PSVT was 4beats and it lasted for 22 minutes and 38 seconds??? Elsewhere, it states only brief PSVT w/ no sustained atrial arrhythmia. In any event, she has no significant palpitations and overall ectopy burden is low. No further treatment is needed for this besides continued compliance with CPAP. -BP at goal -Defer to Endo resugar management and use of GLP-1 (?history of thyroid cancer) -Recent echo shows normal structure and function of heart with no significant valvular heart disease. 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 -BMI above goal-exercise goals are reviewed -She would benefit for evaluation/management of her under lying mood -Follow-up with her established cardiology clinic as previously directed. Thank you for allowing me to participate in the care of your patient. Please feel free to contact me with any questions or concerns. Sincerely- Dariel Le MD Staff Child Development Professor CONSULTS: Patient does not require consults for optimization at this time. The Following Tests/Procedures Have Been Initiated: Labs not indicated per [facility] protocol, EKG not indicated per [facility] protocol Planned Anesthetic: Per anesthesia choice Instructions Given to Patient: Instructions located in the after visit summary. Patient given verbal and written preop instructions and voices comprehension and compliance. SIGNATURE: Latanya Beltran APRN.CNP PATIENT NAME: Esme Morfin DATE: 12/22/2022 TIME: 12:56 PM documented in this encounterToledo Hospital11-13-2023 Miscellaneous Notes* Telephone Encounter - Oma Montero LPN - 12/21/2022 1:21 PM EST Patient did not check in for 1 pm [facility] appt. She was not in the waiting room. I called her at 1:20 pm and she was unsure if appt was in person or virtual. Please call her to reschedule. Surgery is 12/30/22. Oma Montero LPN December 21, 2022 1:24 PM documented in this encounterToledo Hospital10-25-2023 Miscellaneous Notes* Telephone Encounter - Alana Hurst RN - 12/02/2022 11:21 AM EDT Requested Prescriptions Pending Prescriptions Disp Refills pantoprazole DR (PROTONIX) 40 mg tablet Sig: Take 1 tablet by mouth as needed. Last visit: 09/24/17 EGD/col: 10/13/2017 Next Visit: nothing scheduled Alana Hurst RN documented in this encounterToledo Hospital10-25-2023 Miscellaneous Notes* Telephone Encounter - Rosa Martell - 12/02/2022 10:29 AM EDT Patient's request for medication is as follows: Requested Prescriptions Pending Prescriptions Disp Refills tretinoin (RETIN-A) 0.025 % topical cream 20 g 2 Sig: Apply to affected area daily at bedtime. Prescription(s) as above. Please process accordingly. Rosa [facility] Marichuy Suarez MD filed at 06/23/2022 1:30 PM Status: Signed Evaluation of droopy upper lids OD >> OS. Patient feels side vision affected especially while driving. Getting worse per patient. Twitching both eyelids Patanol Tears as needed. A/P: Heavy upper eyelids Feels that eyelids block vision and sees better when lifted especially when driving and reading Referred by Dr. Og H/o thyroidectomy 2011 but some remaining thyroid ; h/o hashimotos Labs 06/16/22: TSH, T3, T4 within normal limits, TPO high No double vision No issues eating/swallowing No H/o contact lens use Exam: Brow ptosis No skin on lashes AL: 21, 23 LF: 15, 15 Margin to reflex distance 1: 4.5, 4.5 Ptosis visual field diff: 18, 13 Pupils symmetric Extraocular movement full, no diplopia Bilateral lower lid festoons R>L 1mm papillomas x 3 Sle: Cornea clear both eyes No Superficial punctate keratopathy (SPK) No conjunctival injection both eyes No a/c reaction both eyes Iris within normal limits both eyes Patient has brow ptosis lower than orbital rims, especially laterally -Without brow lift there willbe suboptimal improvement of heavy upper lids. Discussed options: - Can consider Botox for brow lift (lasts 3 mo, also cosmetic). Botox takes 1 week to set in lasts 3-4 mo, cost $12.50/unit, typical dose 25-35 units $300-450 Discussed risk of bruising, spread to cause droopy eyelid,double vision, rare allergic reaction, rare generalized weakness with neurological disorders eg. Eaton Lambert syndrome No excess skin for Bilateral upper lids blepharoplasty Risks, benefits, alternatives discussed and patient wishes to proceed. Consent obtained 25 units Botox estimated ~$312.50 Discussed could consider tetracycline injection to address festoons, Not 100% effective, some patients not all see improvements, off label use of medication , usually need 2-3 injections may need multiple treatments $450 per treatment at main [facility]; not great treatment Patient concerned about wrinkles Recc Retin-A Use as directed. Wash face and patient dry. Apply thin film of Retin-A to face, making sure not to get into eyes. Start every 3rd night then can gradually increase to every other night or every night if no redness/peeling/dryness If using cream in a tube, use a small pea size amount If using the pump, one pump for entire face to start (if can tolerate can do 1 pump for each side of face) If redness, peeling or dryness, can decrease and also mix 1:1 with Cetaphil daily facial ceramics teacher To help spread Retin-A can put spots on face then blend (ie. 3 dots on forehead, 1 on each cheek, one on each lower face, one on nose, and one on chin). After allowing to dry, can use regular moisturizer F/u for Botox if desires The documentation for this note was completed by Chepe Shea APRN, CNP acting as a scribe for Marichuy Suarez MD. 06/23/2022 1:23 PM. I have confirmed and edited as necessary the relevant ophthalmic history, ROS, and the neuro exam findings as obtained by others. I have seen and examined Esme Morfin. I have discussed the case and the management of this patient's care with the Resident/Fellow, if applicable. I also have reviewed and agree with the assessment and plan as stated above and agree withall of its relevant components. I, Marichuy Suarez MD, personally performed the services described in this documentation. All medical record entries made by the scribe were at my direction and in my presence. I have reviewed the chart and discharge instructions (if applicable) and agree that the record reflects my personal performance and is accurate and complete. Electronically Signed: Marichuy Suarez MD, June 23, 2022 1:23 PM. documented in this encounterT[facility]10-25-2023 Miscellaneous Notes* Telephone Encounter - Cata Cerda RN - 12/02/2022 7:33 AM EDT SocialSambat message sent documented in this encounterToledo Hospital10-23-2023 NoteHNO ID: [id number] Author: Bipin Nina APRN.DRILL PRESS HAND Service: ? Author Type: Nurse Practitioner Type: Progress Notes Filed: 11/30/2022 12:18 PM Note Text: Endocrinology Follow-up Subjective History of Present Illness Esme Morfin is a 47 year old female who presents today for follow up of Type 2 diabetes mellitus. Diagnosed with Type 2 diabetes mellitus around 2014. 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 Last seen by endocrinology 09/12/2022 (Dr. Leavtit). Resumed trulicity at last OV Having large and rapid rises in glucose again - started acarbose and is helping Stopped using CGM because it was waking her up a lot at night Recent A1c Results: Hemoglobin A1C (%) Date Value 06/16/2022 6.2 01/21/2022 6.3 03/17/2021 6.0 12/27/2020 6.2 08/13/2020 6.1 Hemoglobin A1C (POCT) (%) Date Value 11/30/2022 6.6 DM Complications: none Current DM Regimen: Trulicity 1.5 mg weekly (not currently taking) Acarbose 25-50 mg before meals (up to 3x day - usually just once) Glucose Monitoring: - Frequency of Monitoring: prn at various times, when having symptoms - Reports hypoglycemia. - Hypoglycemia awareness: Yes - Able to self treat: Yes - BG Values: reported. Breakfast: 100-150's As high in 300's after eating and depending on what she eats a low Diet: Doing ok with diet Minimal appetite Meals per day: 1 Snacks per day: 1 Physical Activity: Not physically active or exercising Struggling with depression and working with therapist Prior DM Medications: Ozempic - cost / HI coverage Health Maintenance: Diabetic Foot and Retinal Eye Exam not Overdue Medications, Past History, Allergies Current Medications 11/30/2022 DIABETES THERAPIES Medication Dosage Pharm Subclass acarbose (PRECOSE) 50 mg tablet Take 1 tablet by mouth three times daily. Antihyperglycemic - Alpha-Glucosidase Inhibitors dulaglutide (TRULICITY) 1.5 mg/0.5 mL pen injector Inject 1.5 mg subcutaneously one time a week. Antihyperglycemic - Glucagon-Like Peptide-1 (GLP-1) Receptor Agonists OTHER Medication Dosage Pharm Subclass ALPRAZolam (XANAX) 0.25 mg tablet Take 0.5 tablets by mouth as needed. Antianxiety Agent - Benzodiazepines BIPAP Lifetime supplies for BiPAP 12/8 cm H20 including mask, heated tubing, humidity, filters. Dx: G47.33 Medical Supply, [employer] Superset blood sugar diagnostic (TRUE METRIX GLUCOSE TEST STRIP) test strip Use as instructed to check glucose 4 x daily or more as needed. Medical Supplies and DME - Blood Glucose Tests Blood-Glucose Sensor (FREESTYLE NBA 3 SENSOR) vinny Use to check glucose 4 times or more daily. Change sensor every 14 days. Medical Supplies and DME - Glucose Monitoring Test Supplies CPAP/BIPAP/OTHER Type .CPAPSettings into a note to see current settings/supplies/DME information. Medical Supply, [employer] Superset CPAP/BIPAP/OTHER Type .CPAPSettings into a note to see current settings/supplies/DME information. Medical Supply, [employer] Superset cyanocobalamin 1,000 mcg/mL inject 1 milliliter intramuscularly ONCE A MONTH as instructed Vitamins - B-12, Cyanocobalamin and derivatives diclofenac (VOLTAREN ARTHRITIS PAIN) 1 % topical gel Apply 4 g to affected area four times daily. Dermatological - NSAID Single Agents ergocalciferol 50,000 unit capsule (VITAMIN D2, DRISDOL) Take 1 capsule by mouth two times a week. Vitamins - D Derivatives glucagon (BAQSIMI) 3 mg/actuation nasal spray Use 1 [place] in the nose as needed for low blood sugar. May repeat after 15 minutes using a new device if there is no response. Agents to treat Hypoglycemia (Hyperglycemics) levothyroxine (SYNTHROID) 50 mcg tablet Take 1 tablet by mouth once daily. Thyroid Hormones - Synthetic T4 (Thyroxine) meclizine (ANTIVERT) 25 mg tab Take 0.5-1 tablets by mouth three times daily as needed (for dizziness.). Antiemetic - Antihistamines pantoprazole DR (PROTONIX) 40 mg tablet Take 1 tablet by mouth as needed. Gastric Acid Secretion Waistline Joiner Overlock - Proton Pump Inhibitors (PPIs) promethazine (PHENERGAN) 25 mg tablet Take 25 mg by mouth four times daily as needed. Antihistamine - 1st Generation - Phenothiazines Syringe with Needle, Safety (EASY TOUCH SHEATHLOCK SYRG-NDL) 3 mL 25 gauge x 1 syrg Weekly methotrexate injections, monthly vit b12 injections as instructed Medical Supplies and DME - [place] and Syringes tretinoin (RETIN-A) 0.025 % topical cream Apply to affected area daily at bedtime. Acne Therapy Topical - Retinoids and Derivatives zaleplon (SONATA) 10 mg capsule Take 10 mg by mouth daily at bedtime. Pt takes 10mg qhs Sedative-Hypnotic - OLIVIER-Receptor Modulators PAST MEDICAL HISTORY Diagnosis Date Anemia Depressive disorder, not elsewhere classified Diabetes (HCC) Diarr (more content not included)...[facility]10-23-2023 Instructions* Patient Instructions* Bipin Nina APRN.DRILL PR[employer] HAND - 11/30/2022 11:58 AM EDT Regimen: Start Trulicity 0.75 mg once weekly for 4 weeks, then increase to 1.5 mg weekly. - Notify the office if you have side effects such as nausea, vomiting, bloating, diarrhea, or abdominal pain that does not subside. When you feel full, just stop eating, or you may get sick. Acarbose 50 mg before meals up to 3x daily Small frequent feedings throughout the day Complex carb with protein and healthy fat - Check glucose 4 times daily and as needed before meals, before bed time - Glucose targets: Fasting 80-130 mg/dL, before meals 80-130 mg/dL, 2 hours after meal <180 mg/dL, and bedtime <150 mg/dL. - Notify office for consistently elevated or any low glucose readings <70 mg/dL. - Bring meter and/or glucose readings to each appointment Healthy Eating Tips: - Fresh food is better food for you than ultra processed food. - Make your own food if you are able. - Meal prep if you can - it will help you stay with your dietary plan! - Reduce your portions and eat slowly. - Enjoy the food you are eating. - When eating, be mindful of your eating - don't watch television or read on your phone - Read the nutrition label and take into account the serving size. Don't just believe the marketing/advertising on the bag/box! - Limit / avoid energy dense foods high in calories (energy bars) - Avoid excessive salt / sodium (found commonly in processed foods) - If you think you are hungry and reaching for a snack, drink a glass of water first and wait a fewminutes before deciding if you want a snack still - Focus on the three macronutrients when reading the label: carbohydrates, fat, and protein A low carbohydrate diet is considered 60-130 grams of carbohydrates per day. Proteins: - Eat more plant based and vegetarian proteins (Tofu, chickpeas, black beans, lentils, peanuts, almonds, pistachios, green peas) - Nut butters are a great source of protein as well. - If eating dairy, choose organic or grass fed dairy products such as cheese, cottage cheese, greekyogurt (be mindful of added sugar to products such as yogurt) - If eating meat, choose lean cuts or lean versions of ground beef such as 90/10 - limit red meat to no more than 2 days a week. Choose grass fed beef if able. - If eating pork, pork loins and pork chops are a great source of lean protein. - Limit / avoid ultra processed meats such as baez, sausage, and hot dogs. - If eating poultry, choose lean cuts such as tenderloins or breasts and ground versions of it. If able, choose pasture raised poultry. - If eating eggs, choose pasture raised or organic if able. If not regular eggs are still a good option. Egg whites and free range egg whites are a great way to include protein in your diet without the added cholesterol from the yolk! - If eating fish/seafood, choose wild caught salmon (salmon is high in omega 3- fatty acids), shrimp(high in protein, low in calories, but higher in cholesterol). Wild caught can have less saturated fat versus farm raised. Try and choose fish from the [place]. Tilapia is another good option (avoid if farmed raised in [place]). - If eating canned fish, eat fish canned in water but limit to only 1-2 times a week. Fats: - Avoid trans fats (commonly found it commercial baked goods, shortening, refrigerated dough, frozen pizza, microwave popcorn, non dairy creamer, stick margarine, fried foods) - Use extra virgin olive oil as main source of oil for cooking. - Avoid vegetable oil, corn oil, sunflower oil, peanut oil, and margarine as these can increase inflammation - If using butter, choose grad fed butter or ghee - Saturated fats are found in butter, cheese, whole or 2% dairy products, ice cream, beef, poultry,pork, and coconut oil. - The total daily amount of saturated fat should not exceed 5-10% of your total calories for the day. - Unsaturated fats (AKA monounsaturated and polyunsaturated) are heart healthy so choose more if you are able to such as avocados, extra virgin olive oil, salmon, walnuts, and almonds. - These unsaturated fats can comprise 20-25% of your total daily calories. Carbohydrates: - Avoid high fructose corn syrup! - If using sweeteners limit aspartame, saccharin, stevia, and sugar alcohols (such as xylitol, erythritol, sorbitol, maltitol). - Avoid ultra processed foods with minimal nutritional value (junk food / sweets - cakes, pies, cookies, candy, pretzels, and chips). - Eat more vegetables and fruit! - When picking vegetables or fruit, choose organic if able but conventional fruits and vegetables are still better than not eating them at all. - Berries are lowest in glycemic index and a handful is great for snacks. - If eating potatoes, eat in smaller sizes / moderation as they are full of carbohydrates. A baked sweet potato is a great alternative to a baked potato. - Include green leafy vegetables such as lettuce, kale, and spinach (unless told otherwise) - Choose complex carbohydrates (whole wheat bread, brown rice, whole wheat pasta / chickpea pasta) over simple carbohydrates (regular pasta, white rice, white bread). - Swap quinoa for rice (quinoa is also high in protein and a great source of fiber) - Choose foods that have a lower glycemic index (can look up different foods to compare on the Internet) Snacks: - If snacking, keep the portion small - only take a small portion of what you are going to eat - If eating a snack that is a carbohydrate, include a protein or fat with it - it will help you feel oliver longer - Examples include an apple with peanut butter, berries/raisins with nuts & cheese, carrots & celery with hummus - Dessert foods are treats. Do not eat dessert foods daily. Should only eat 1-2x a week at most PRACTICAL SUGGESTIONS TO INCORPORATE MEDITERRANEAN DIET CATEGORY CONSUME AVOID Fruits and vegetables Wide variety of whole fruits and vegetables; try for at least 7-10 servings per day Vegetables prepared in butter or cream sauce High-fiber breads, cereals, and pasta Whole grain bread and cereal, bran, brown rice Sweets, white bread, biscuits, breadsticks, and other refined carbohydrates Protein that is low in saturated fat Lean cuts of meat (fat trimmed) or poultry (no skin); low-fat dairy foods (skim mild, yogurt) Baez, sausage, other processed or high-fat meat, milk or cheese that is not low-fat, ice cream Fish or other source of omega-3 fatty acids, at least 1 or 2 times per week [place], trout, logan,water-packed tuna, mackerel (or fish oil supplement); flaxseed, spinach, walnuts Fried fish ( except when metzger fried in olive oil) Healthy oils for cooking, salad dressing, and other uses Extra-virgin olive oil, canola oil, flaxseed oil ( high-oleic sunflower or safflower oil may also be an option) [place]-6 oils, (corn, sunflower, safflower, soybean, peanut) Peas, beans, legumes, and nuts Soybeans, lentils, or any kind of peas, beans, or legumes; tree nuts(eg. Almonds,pecans, walnuts, [place] nuts) Heavily salted or honey-roasted nuts; stale or rancid nuts Alcohol One 5-oz glass of wine, a 12-oz beer, or a 1.5oz drink containing distilled spirits with the evening meal Limit to no more than 1 drink daily for women, 2 drinks daily for men Fat Emphasize whole, natural foods as above; look for 'trans-fatty acid -free margarine and snack foods Fast food, fried food, margarine, chips, crackers, baked goods, doughnuts, any processed food made with partially hydrogenated oil documented in this encounterT[facility]10-23-[facility]23 Nurse Note* Halie Bland MA - 11/30/2022 11:12 AM EDT Does not have meter. Stopped using NBA due to it waking her up at night. States that she is running high-- in the 300's -- states she wakes up above 100, and even 150's-- says she does get low 40-60 but more high. documented in this encounterT[facility]edo [facility]10-23-2023 History of Present illness Narrative* Bipin Nina APRN.CNP - 11/30/2022 11:00 AM EDT Endocrinology Follow-up Subjective History of Present Illness Esme Morfin is a 47 year old female who presents today for follow up of Type 2 diabetes mellitus. Diagnosed with Type 2 diabetes mellitus around 2014. 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 Last seen by endocrinology 09/12/2022 (Dr. Leavitt). Resumed trulicity at last OV Having large and rapid rises in glucose again - started acarbose and is helping Stopped using CGM because it was waking her up a lot at night Recent A1c Results: Hemoglobin A1C (%) Date Value 06/16/2022 6.2 01/21/2022 6.3 03/17/2021 6.0 12/27/2020 6.2 08/13/2020 6.1 Hemoglobin A1C (POCT) (%) Date Value 11/30/2022 6.6 DM Complications: none Current DM Regimen: Trulicity 1.5 mg weekly (not currently taking) Acarbose 25-50 mg before meals (up to 3x day - usually just once) Glucose Monitoring: - Frequency of Monitoring: prn at various times, when having symptoms - Reports hypoglycemia. - Hypoglycemia awareness: Yes - Able to self treat: Yes - BG Values: reported. Breakfast: 100-150's As high in 300's after eating and depending on what she eats a low Diet: Doing ok with diet Minimal appetite Meals per day: 1 Snacks per day: 1 Physical Activity: Not physically active or exercising Struggling with depression and working with therapist Prior DM Medications: Ozempic - cost / HI coverage Health Maintenance: Diabetic Foot and Retinal Eye Exam not Overdue Medications, Past History, Allergies Current Medications 11/30/2022 DIABETES THERAPIES Medication Dosage Pharm Subclass acarbose (PRECOSE) 50 mg tablet Take 1 tablet by mouth three times daily. Antihyperglycemic - Alpha-Glucosidase Inhibitors dulaglutide (TRULICITY) 1.5 mg/0.5 mL pen injector Inject 1.5 mg subcutaneously one time a week. Antihyperglycemic - Glucagon-Like Peptide-1 (GLP-1) Receptor Agonists OTHER Medication Dosage Pharm Subclass ALPRAZolam (XANAX) 0.25 mg tablet Take 0.5 tablets by mouth as needed. Antianxiety Agent - Benzodiazepines BIPAP Lifetime supplies for BiPAP 12/8 cm H20 including mask, heated tubing, humidity, filters. Dx:G47.33 Medical Supply, [employer] Superset blood sugar diagnostic (TRUE METRIX GLUCOSE TEST STRIP) test strip Use as instructed to check glucose 4 x daily or more as needed. Medical Supplies and DME - Blood Glucose Tests Blood-Glucose Sensor (FREESTYLE NBA 3 SENSOR) vinny Use to check glucose 4 times or more daily. Change sensor every 14 days. Medical Supplies and DME - Glucose Monitoring Test Supplies CPAP/BIPAP/OTHER Type .CPAPSettings into a note to see current settings/supplies/DME information. Medical Supply, [employer] Superset CPAP/BIPAP/OTHER Type .CPAPSettings into a note to see current settings/supplies/DME information. Medical Supply, [employer] Superset cyanocobalamin 1,000 mcg/mL inject 1 milliliter intramuscularly ONCE A MONTH as instructed Vitamins- B-12, Cyanocobalamin and derivatives diclofenac (VOLTAREN ARTHRITIS PAIN) 1 % topical gel Apply 4 g to affected area four times daily. Dermatological - NSAID Single Agents ergocalciferol 50,000 unit capsule (VITAMIN D2, DRISDOL) Take 1 capsule by mouth two times a week. Vitamins - D Derivatives glucagon (BAQSIMI) 3 mg/actuation nasal spray Use 1 [place] in the nose as needed for low blood sugar. May repeat after 15 minutes using a new device if there is no response. Agents to treat Hypoglycemia (Hyperglycemics) levothyroxine (SYNTHROID) 50 mcg tablet Take 1 tablet by mouth once daily. Thyroid Hormones - Synthetic T4 (Thyroxine) meclizine (ANTIVERT) 25 mg tab Take 0.5-1 tablets by mouth three times daily as needed (for dizziness.). Antiemetic - Antihistamines pantoprazole DR (PROTONIX) 40 mg tablet Take 1 tablet by mouth as needed. Gastric Acid Secretion Waistline Joiner Overlock - Proton Pump Inhibitors (PPIs) promethazine (PHENERGAN) 25 mg tablet Take 25 mg by mouth four times daily as needed. Antihistamine- 1st Generation - Phenothiazines Syringe with Needle, Safety (EASY TOUCH SHEATHLOCK SYRG-NDL) 3 mL 25 gauge x 1 syrg Weekly methotrexate injections, monthly vit b12 injections as instructed Medical Supplies and DME - [place] and Syringes tretinoin (RETIN-A) 0.025 % topical cream Apply to affected area daily at bedtime. Acne Therapy Topical - Retinoids and Derivatives zaleplon (SONATA) 10 mg capsule Take 10 mg by mouth daily at bedtime. 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 Mitral and aortic valve regurgitation 09/08/2009 Aortic insufficiency EF 60% DR Zuniga -- judged to be non-surgical and mild Nephrolithiasis TALIA (obstructive sleep apnea) 2015 on CPAP and BiPAP Postoperative malabsorption 03/04/2017 Rheumatoid arthritis (HCC) was treated with mtx plaquenil in past Thyroiditis, unspecified Thyroiditis Viral pneumonia, unspecified Pneumonia Vomiting of fecal matter ALLERGIES Allergen Reactions Contrast Dye [Iodin* Other: See Comments Mobic [Meloxicam] Intolerance GI bleed with transfusion Motrin [Ibuprofen] Other: See Comments GI Bleed Nsaids (Non-Steroid* Unknown Prednisone Contraindication-Medical Surgical GI bleed Scopolamine Mental Status Change Paranoia, confusion, hallucination Review of Systems Endo: Positive for increased thirst and Negative for polydipsia and polyuria Resp: Negative for shortness of breath CV: Positive for edema and Negative for chest pain GI: Positive for diarrhea and Negative for nausea and vomiting Neuro: Negative for numbness, tingling, pain Objective Physical examination VS: BP 134/88 Pulse 82 Ht 157.5 cm (5' 2 ) Wt 99.3 kg (219 lb) LMP 09/13/2022 (Approximate) BMI 40.06 kg/m General appearance: obese, well appearing, alert, in no acute distress Heart: RRR, S1, S2, no murmur noted Lungs: respirations even, unlabored, and regular. CTA bilaterally Abdomen: obese, bowel sounds present, soft, non-tender to palpation Edema: no edema noted Neuro: mental status intact, speech clear Previous Laboratory Results Glucose (mg/dL) Date Value 10/09/2022 101 03/17/2021 134 eGFR- (no units) Date Value 03/17/2021 >60 12/27/2020 >60 10/21/2020 >60 eGFR-All Other Races (.) Date Value 03/17/2021 >60 12/27/2020 57 10/21/2020 >60 Estimated Glomerular Filtration Rate (mL/min/1.73m ) Date Value 10/09/2022 76 06/16/2022 74 01/21/2022 83 Creatinine Date Value Ref Range Status 10/09/2022 0.92 0.58 - 0.96 mg/dL Final 06/16/2022 0.95 0.58 - 0.96 mg/dL Final AST Date Value Ref Range Status 06/16/2022 27 13 - 35 U/L Final 12/27/2020 21 13 - 35 U/L Final ALT Date Value Ref Range Status 06/16/2022 42 (H) 7 - 38 U/L Final 12/27/2020 20 7 - 38 U/L Final Cholesterol, Total Date Value Ref Range Status 02/11/2018 145 <200 mg/dL Final Comment: <200 mg/dL, Desirable 200-239 mg/dL, Borderline high >239 mg/dL, High HDL Cholesterol Date Value Ref Range Status 02/11/2018 56 >39 mg/dL Final Comment: 40-59 mg/dL, Acceptable >59 mg/dL, High: Negative risk factor for coronary heart disease <40 mg/dL, Low: Positive risk factor for coronary heart disease LDL Cholesterol Date Value Ref Range Status 02/11/2018 75 <100 mg/dL Final Comment: <100 mg/dL, Optimal 100-129 mg/dL, Near optimal/above optimal 130-159 mg/dL, Borderline high 160-189 mg/dL, High >189 mg/dL, Very high Secondary prevention optimal LDL Cholesterol levels are recommended to be < 70 mg/dL Triglyceride Date Value Ref Range Status 02/11/2018 70 <150 mg/dL Final Comment: <150 mg/dL, Normal 150-199 mg/dL, Borderline high 200-499 mg/dL, High >499 mg/dL, Very high Protein, Urine Date Value 10/21/2020 Negative 04/04/2018 TRACE mg/dL Creatinine, Ur Random (UCRR) (mg/dL) Date Value 12/09/2016 35.1 Impression/Recommendations Esme Morfin is here for follow up of Type 2 diabetes mellitus with no complications. Hypoglycemia improved but still having it at times. Will notice hyperglycemia readings depending ondiet and her intake. Appetite is minimal and will have rapid increases and drops with intake at times. A1c increasing. [place] hot and sweaty while in office and glucose checked and was 133 mg/dL. Glycemic control: Patient HbA1c is at target (< 7%). Patient glycemic control is fair, worsening, and labile. - Physical activity as tolerated to 150 minutes activity weekly (combination of aerobic & resistance). - Low carbohydrate diet (60-130 grams of carbohydrates per day) - recommend restarting trulicity and increasing to 1.5 mg weekly - will help slow gastric emptying,reduce insulin resistance, aid weight loss. Will help prevent gastric dumping with slowed gastric emptying and slower gut transit. - rec apt w/ petroleum engineer for meal planning - small frequent feedings - include complex carbs with protein and fat and to avoid simple processed carbs (such as white bread/rice) - Continue remainder of regimen - Recommend use of CGM for glucose monitoring: Nba 3 - Recommend checking glucose more frequently - Lipid Panel and UACR Regimen: Start Trulicity 0.75 mg once weekly for 4 weeks, then increase to 1.5 mg weekly. - Notify the office if you have side effects such as nausea, vomiting, bloating, diarrhea, or abdominal pain that does not subside. When you feel full, just stop eating, or you may get sick. Acarbose 25-50 mg before meals up to 3x daily - Check glucose 4 times daily and as needed before meals, before bed time - Glucose targets: Fasting 80-130 mg/dL, before meals 80-130 mg/dL, 2 hours after meal <180 mg/dL, and bedtime <150 mg/dL. - Notify office for consistently elevated or any low glucose readings <70 mg/dL. - Bring meter and/or glucose readings to each appointment Blood pressure (Target <130/80): At target and not on antihypertensive therapy. Last 3 Encounter BP Readings: Date: BP: 11/30/2022 134/88 11/26/2022 106/75 11/13/2022 115/81 Lipids (LDL goal <70): Not at goal and not on statin therapy. Obesity Class 3 (morbid obesity): Weight has decreased 7 lb(s) since last visit. - Mediterranean, low carb diet - Portion control, eat slowly - Mindful eating - Encouraged increased protein and fiber in diet. - Exercise / physical activity as tolerated to target of 150 minutes weekly - combination aerobic and resistance exercise - Start Trulicity 0.75 mg once weekly for 4 weeks, then increase to 1.5 mg weekly. - small frequent meetings - schedule with petroleum engineer for meal planning - CPAP for TALIA Follow up 2 months Patient to continue to follow up with their PCP and with other consultants regarding their other medical problems. Any part of this document that has been added/copied & pasted from other documents has been reviewed for accuracy and updated as appropriate at the time of the patient encounter. I spent a total of 45 minutes on the date of the service which included preparing to see the patient, [id number]-[id number] patient care, completing clinical documentation, performing a medically appropriate examination, counseling and educating the patient/family/caregiver, and ordering medications, tests,or procedures. Bipin Nina APRN, URBAN REDEVELOPMENT SPECIALIST-C Department of Endocrin[facility] documented in this [facility] NoteHNO ID: [id number] Author: Thaddeus Diggs MD Service: ? Author Type: Physician Type: Progress Notes Filed: 11/27/2022 7:26 AM Note Text: Impression: This is Ms. Esme Morfin, a 47 year old female who presents to the [facility] for follow up. Recently seen in the setting of cognitive complaints (short-term memory loss, issues getting words to come out the right way). Also concerned about possible changes on MRI. Ultimately does well on neurological exam. I am much less concerned for a progressive neurological condition in this case. Multiple risk factors in this case Reviewing the chart Depression, fibromyalgia, anxiety, sleep apnea B12 deficiency history History of gastric bypass Medication regimen Likely multifactorial issue. Likely a result of polypharmacy as well as untreated sleep apnea due to need for updated CPAP equipment. Also with history of vitamin deficiency that we are investigating further. Plan: - Vitamin B1, B6 pending. - Continue to follow-up with sleep medicine. New CPAP equipment in coming. - Follow-up with endocrinology. Not currently taking Synthroid. - Sedrick maneuver discussed today. Thaddeus Diggs MD Staff, [facility] [place] HPI: This is Ms. Esme Morfin, a 47 year old female who presents to the [facility] for follow up. Recently seen in the setting of cognitive complaints (short-term memory loss, issues getting words to come out the right way). Also concerned about possible changes on MRI. Review: Initially seen 11/13/2022. This is Ms. Esme Morfin, a 47 year old female who presents to the [facility] clinic with cognitive complaints (short-term memory loss, issues getting words to come out the right way). Also concerned about possible changes on MRI. Risk factors in this case for cognitive complaints Depression, fibromyalgia, anxiety, sleep apnea, thyroiditis B12 deficiency anemia History of gastric bypass Medication regimen Many issues to consider as regards cognitive complaints. This is likely multifactorial issue. Likely result of polypharmacy as well as untreated sleep apnea due to need for updated CPAP equipment. Also with history of vitamin deficiency that needs to be investigated further. Also with very stressful life situation at the moment. Plan: -Laboratory studies. B12, B1, B6, folate, vitamin D, ferritin. - Follow-up with sleep medicine. Message sent to my colleague in sleep disorders. - Follow-up with endocrinology. Not currently taking Synthroid. - Follow-up in clinic with me 11/26/2022. >>>>>> CC: Today: Appointment 11/30 Endo Appointment 11/24 Sleep Updated order for mask/supplies B12 327 B1, B6 pending Ferritin normal D normal Past history per chart review includes: (Per my 11/13/2022 clinic note) Past medical history, problem list: Depression, fibromyalgia, anxiety, rheumatoid arthritis, thyroiditis, sleep apnea, diabetes, B12 deficiency anemia, dysmetabolic syndrome Past surgical history: ? Partial/incomplete thyroidectomy, history of gastric bypass Family history: Thyroid (mother, sister) Social history: Non-smoker, social alcohol OBJECTIVE: PHYSICAL EXAM: Neurological: Mental Status: Alert. Cogent. Cranial Nerves: CNII: Visual rojas intact. CNIII, IV, : Pupils are reactive to light. Eyes cross midline. Upgaze does not seem limited. CN V: Facial sensation intact bilaterally to touch. CN VII: Smile is symmetric. CN VIII: Hearing intact to finger rub bilaterally. CN IX: No hypophonia. CN XI: Full strength shoulder shrug bilaterally. CN XII: Tongue protrusion full, midline. Motor: Bulk is normal in the upper and lower extremities. Normal calf asymmetry L vs R? Tone is normal in the upper and lower extremities. Individual muscle group testing: Right Left Shoulder abduction 5 5 Elbow flexion Approx 5 5 Elbow extension Approx 5 5 Wrist extension 5 Approx 5 Wrist flexion Finger extension 5 5 Distal finger flexion Thumb abduction 5 Approx 5? Machining Manager 5 Approx 5 Hip flexion Difficult 5? Knee extension 5 Approx 5? Knee flexion [address] Approx 5 Dorsiflexion 5 5 Ankle inversion Plantarflexion Toe walks. Reflexes: R L Biceps 1 1 Triceps 2 2 Patellar 2 2 Ankle 2 2 Sensation: Intact to sharp in the distal upper and lower extremities. Intact to vibration in the distal upper and lower extremities. Rhomberg positive? Coordination: Intact sbrajj-zi-jrkj-finger bilaterally. Does fairly well zuqn-kc-gxdj bilaterally. Struggles a bit LLE (pain, feels heavy) This note was partially created using voice recognition software and is inherently subject to errors including those of syntax and sound-alike substitutions which may escape proofreading. In such instances, original meaning may be extrapolated by (more content not included)...[facility]10-19-2023 History of Present illness Narrative* Thaddeus Diggs MD - 11/26/2022 4:30 PM EDT Impression: This is Ms. Esme Morfin, a 47 year old female who presents to the [facility] clinic for follow up. Recently seen in the setting of cognitive complaints (short-term memory loss, issues getting words to come out the right way). Also concerned about possible changes on MRI. Ultimately does well on neurological exam. I am much less concerned for a progressive neurological condition in this case. Multiple risk factors in this case Reviewing the chart Depression, fibromyalgia, anxiety, sleep apnea B12 deficiency history History of gastric bypass Medication regimen Likely multifactorial issue. Likely a result of polypharmacy as well as untreated sleep apnea due to need for updated CPAP equipment. Also with history of vitamin deficiency that we are investigatingfurther. Plan: - Vitamin B1, B6 pending. - Continue to follow-up with sleep medicine. New CPAP equipment in coming. - Follow-up with endocrinology. Not currently taking Synthroid. - Sedrick maneuver discussed today. Thaddeus Diggs MD Staff, [facility] [place] HPI: This is Ms. Esme Morfin, a 47 year old female who presents to the [facility] clinic for follow up. Recently seen in the setting of cognitive complaints (short-term memory loss, issues getting words to come out the right way). Also concerned about possible changes on MRI. Review: Initially seen 11/13/2022. This is Ms. Esme Morfin, a 47 year old female who presents to the [facility] clinic with cognitive complaints (short-term memory loss, issues getting words to come out the right way). Also concerned about possible changes on MRI. Risk factors in this case for cognitive complaints Depression, fibromyalgia, anxiety, sleep apnea, thyroiditis B12 deficiency anemia History of gastric bypass Medication regimen Many issues to consider as regards cognitive complaints. This is likely multifactorial issue. Likely result of polypharmacy as well as untreated sleep apnea due to need for updated CPAP equipment. Also with history of vitamin deficiency that needs to be investigated further. Also with very stressful life situation at the moment. Plan: -Laboratory studies. B12, B1, B6, folate, vitamin D, ferritin. - Follow-up with sleep medicine. Message sent to my colleague in sleep disorders. - Follow-up with endocrinology. Not currently taking Synthroid. - Follow-up in clinic with me 11/26/2022. >>>>>> CC: Today: Appointment 11/30 Endo Appointment 11/24 Sleep Updated order for mask/supplies B12 327 B1, B6 pending Ferritin normal D normal Past history per chart review includes: (Per my 11/13/2022 clinic note) Past medical history, problem list: Depression, fibromyalgia, anxiety, rheumatoid arthritis, thyroiditis, sleep apnea, diabetes, B12 deficiency anemia, dysmetabolic syndrome Past surgical history: ? Partial/incomplete thyroidectomy, history of gastric bypass Family history: Thyroid (mother, sister) Social history: Non-smoker, social alcohol OBJECTIVE: PHYSICAL EXAM: Neurological: Mental Status: Alert. Cogent. Cranial Nerves: CNII: Visual rojas intact. CNIII, IV, : Pupils are reactive to light. Eyes cross midline. Upgaze does not seem limited. CN V: Facial sensation intact bilaterally to touch. CN VII: Smile is symmetric. CN VIII: Hearing intact to finger rub bilaterally. CN IX: No hypophonia. CN XI: Full strength shoulder shrug bilaterally. CN XII: Tongue protrusion full, midline. Motor: Bulk is normal in the upper and lower extremities. Normal calf asymmetry L vs R? Tone is normal in the upper and lower extremities. Individual muscle group testing: Right Left Shoulder abduction 5 5 Elbow flexion Approx 5 5 Elbow extension Approx 5 5 Wrist extension 5 Approx 5 Wrist flexion Finger extension 5 5 Distal finger flexion Thumb abduction 5 Approx 5? Machining Manager 5 Approx 5 Hip flexion Difficult 5? Knee extension 5 Approx 5? Knee flexion [address] Approx 5 Dorsiflexion 5 5 Ankle inversion Plantarflexion Toe walks. Reflexes: R L Biceps 1 1 Triceps 2 2 Patellar 2 2 Ankle 2 2 Sensation: Intact to sharp in the distal upper and lower extremities. Intact to vibration in the distal upper and lower extremities. Rhomberg positive? Coordination: Intact qycuyw-ew-dmyk-finger bilaterally. Does fairly well yxii-kc-kiua bilaterally. Struggles a bit LLE (pain, feels heavy) This note was partially created using voice recognition software and is inherently subject to errors including those of syntax and sound-alike substitutions which may escape proofreading. In such instances, original meaning may be extrapolated by contextual derivation. I spent a total of 59 minutes on the date of the service which included time spent talking to the patient/documenting in the chart, examining the patient. documented in this [facility]10-[facility]23 NoteHNO ID: [id number] Author: Dulce Serrano APRN.FRANK Service: ? Author Type: Nurse Practitioner Type: Progress Notes Filed: 11/24/2022 11:03 AM Note Text: [facility] Follow up/ Established patient visit Date of last visit : 05/13/2022 IMPRESSION: Talia (obstructive sleep apnea) (primary encounter diagnosis) Chronic insomnia Psychophysiological insomnia Rheumatoid arthritis of multiple sites without rheumatoid factor (hcc) Fibromyalgia Chronic lymphocytic thyroiditis Anemia, unspecified type Type 2 diabetes mellitus without complication, without long-term current use of insulin (hcc) Obesity, class i, bmi 30-34.9 This is a pleasant 46 yo female with a PMH of TALIA on PAP therapy, chronic insomnia, DM2, RA, depression, anxiety, PTSD and obesity who presents via virtual visit for follow up management of sleep concerns. She is compliant with PAP therapy, reports subjective benefit of improvement in sleep and denies mask or pressure intolerance. She had occasional episodes recently of waking up with palpitations and snoring with mask on. Reassurance provided that PAP therapy is effectively controlling her TALIA, and palpitations are likely related to underlying anxiety. Her insomnia is due to underlying depression and anxiety, and she was advised to start Luvox at last visit with Dr. Aj, however she did not start this. She has been trying to wean off Zaleplon slowly as she has side effects confusional awakenings and texting without knowledge and now has a job requiring occasional call hours. 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 She is agreeable to start. PLAN: Sleep apnea - Continue BiPAP at 12/8 cmH2O. - Remember to clean your mask and equipment regularly, as directed. - You should be eligible for new supplies approximately every 3-6 months, depending on your insurance coverage. Contact your Durable Medical Equipment (DME) company for new supplies as needed. Insomnia Schedule follow up with behavior sleep medicine specialist for individual or group cognitive behavioral therapy for insomnia ( CBTi ). Dr. Marlene Lazcano: [phone] Continue Sonata for medical treatment of insomnia. Refill for 5 mg provided as you are trying to wean down and have a rx for 10 mg still at pharmacy. Start Luvox 100 g tabs (Fluvoxamine) as directed at last visit with Dr. Aj Take 1/2 tab at bedtime for 2 weeks, then increase to 1 tab at bedtime for 2 weeks, then increase to 1 and 1/2 tab at bedtime until follow up. Continue working with your mental health care providers and hopefully get into the outpatient program soon. Schedule a follow up visit with me or Dr. Aj for 2-3 months to assess response to medications. [phone]. Reach out sooner if you have any questions or concerns. Dulce Serrano APRN.DRILL [employer] HAND I have communicated my name and active licensure. The patient's identity and physical location were verified at the time of this visit. Either the patient or their legal new accounts banking representative has been informed of the risks and benefits of -- and alternatives to -- treatment through a remote evaluation and consents to proceed with the evaluation remotely. Interval history : Here for follow up for follow up management of TALIA and insomnia. She has not been able to wear her BIPAP machine in 2 months due to mask not fitting. She reports she is only eligible for a mask once a year and cannot afford to purchase a new mask. She does not think she can get a new mask for 6 months. She is not working at this time as she could not take the required on-call requirements at her last job. She is unfortunately still having significant difficulty sleeping, reports a variable sleep-wake cycle, difficulty staying asleep and falling asleep. She also has concerns with short-term memory loss and difficulty finding words, endorses significant depression and stressors. At her last visit we discussed in depth the recommendation to establish care with behavioral sleep medicine and to wean off zaleplon and start Luvox as discussed and initiated with . She did not schedule a visit with behavioral sleep medicine or start the recommended Luvox. She remains on zaleplon, in addition is also taking alprazolam and dedw-slt-hbbwafh sleep aids. He She did not schedule appointment with behavioral sleep medicine. She finds it overwhelming to have so many appointments. SLEEP APNEA Sleep apnea type : TALIA, Most Recent Apnea-Hypopnea Index (AHI): 58 Treatment : None INSOMNIA Current treatment : Sonata 10 mg, z quil - 3 cups and Alprazolam 1 mg. Status : worse SLEEP HYGIENE QUESTIONS: Bedtime : (more content not included)...[place] [id number] History of Present illness Narrative* Dulce Serrano APRN.FRANK - 11/24/2022 8:00 AM EDT Images from the original note were not included. [facility] Follow up/ Established patient visit Date of last visit : 05/13/2022 IMPRESSION: Talia (obstructive sleep apnea) (primary encounter diagnosis) Chronic insomnia Psychophysiological insomnia Rheumatoid arthritis of multiple sites without rheumatoid factor (hcc) Fibromyalgia Chronic lymphocytic thyroiditis Anemia, unspecified type Type 2 diabetes mellitus without complication, without long-term current use of insulin (hcc) Obesity, class i, bmi 30-34.9 This is a pleasant 46 yo female with a PMH of TALIA on PAP therapy, chronic insomnia, DM2, RA, depression, anxiety, PTSD and obesity who presents via virtual visit for follow up management of sleep concerns. She is compliant with PAP therapy, reports subjective benefit of improvement in sleep and denies mask or pressure intolerance. She had occasional episodes recently of waking up with palpitations and snoring with mask on. Reassurance provided that PAP therapy is effectively controlling her TALIA, and palpitations are likely related to underlying anxiety. Her insomnia is due to underlying depression and anxiety, and she was advised to start Luvox at last visit with Dr. Aj, however she did not start this. She has been trying to wean off Zaleplonslowly as she has side effects confusional awakenings and texting without knowledge and now has a job requiring occasional call hours. 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 She is agreeable to start. PLAN: Sleep apnea - Continue BiPAP at 12/8 cmH2O. - Remember to clean your mask and equipment regularly, as directed. - You should be eligible for new supplies approximately every 3-6 months, depending on your insurance coverage. Contact your [employer] company for new supplies as needed. Insomnia Schedule follow up with behavior sleep medicine specialist for individual or group cognitive behavioral therapy for insomnia ( CBTi ). Dr. Marlene Lazcano: [phone] Continue Sonata for medical treatment of insomnia. Refill for 5 mg provided as you are trying to wean down and have a rx for 10 mg still at pharmacy. Start Luvox 100 g tabs (Fluvoxamine) as directed at last visit with Dr. Aj Take 1/2 tab at bedtime for 2 weeks, then increase to 1 tab at bedtime for 2 weeks, then increase to 1 and 1/2 tab at bedtime until follow up. Continue working with your mental health care providers and hopefully get into the outpatient program soon. Schedule a follow up visit with me or Dr. Aj for 2-3 months to assess response to medications. [phone]. Reach out sooner if you have any questions or concerns. Dulce Serrano APRN.DRILL [employer] HAND I have communicated my name and active licensure. The patient's identity and physical location wereverified at the time of this visit. Either the patient or their legal new accounts banking representative has been informed of the risks and benefits of -- and alternatives to -- treatment through a remote evaluation andconsents to proceed with the evaluation remotely. Interval history : Here for follow up for follow up management of TALIA and insomnia. She has not been able to wear her BIPAP machine in 2 months due to mask not fitting. She reports she is only eligible for a mask once a year and cannot afford to purchase a new mask. She does not think she can get a new mask for 6 months. She is not working at this time as she could not take the required on-call requirements at her lastjob. She is unfortunately still having significant difficulty sleeping, reports a variable sleep-wake cycle, difficulty staying asleep and falling asleep. She also has concerns with short-term memory lossand difficulty finding words, endorses significant depression and stressors. At her last visit we discussed in depth the recommendation to establish care with behavioral sleep medicine and to wean off zaleplon and start Luvox as discussed and initiated with . She did not schedule a visit with behavioral sleep medicine or start the recommended Luvox. She remains on zaleplon, in addition is also taking alprazolam and hinn-hqj-tqctzaj sleep aids. He She did not schedule appointment with behavioral sleep medicine. She finds it overwhelming to have so many appointments. SLEEP APNEA Sleep apnea type : TALIA, Most Recent Apnea-Hypopnea Index (AHI): 58 Treatment : None INSOMNIA Current treatment : Sonata 10 mg, z quil - 3 cups and Alprazolam 1 mg. Status : worse SLEEP HYGIENE QUESTIONS: Bedtime : variable PATIENT-ENTERED QUESTIONNAIRE SLEEP SCORES Sleep Questions 01/08/2022 Reason for visit: Sleep apnea, Difficulty falling or staying asleep or poor sleep quality, Abnormalbehaviors/movements during sleep Average hours slept in 24 hours: - Average hours of CPAP per night: 8 Percent of nights CPAP used at least 4 hours: 16 Accidents or near accidents due to drowsy drivin [place] Sleepiness Scale 09/30/2021 10/17/2021 01/08/2022 Score Incomplete Incomplete Incomplete PROMIS CAT Sleep Disturbance 09/10/2021 10/17/2021 01/08/2022 PROMIS Sleep Disturbance T-Score 72 (severe) 56 (mild) 54 (within normal limits) PROMIS Sleep Disturbance Percentile 1 % 27 % 34 % Restless Leg Syndrome 09/10/2021 Score 7 PHQ-9 09/10/2021 10/17/2021 01/08/2022 Score 18 10 7 PROMIS Global Health - (T-Scores - the mean of general population = 50. Five points is a clinicallymeaningful difference.) 01/08/2022 09/30/2022 09/30/2022 Physical T-Score 39.8 39.8 39.8 Mental T-Score - 31.3 31.3 PMH, PSH, SH: reviewed SLEEP RELATED ROS Review of Systems Constitutional: Positive for fatigue. Respiratory: Negative. Cardiovascular: Negative. Gastrointestinal: Negative for heartburn. Psychiatric: Positive for depressed mood. ALLERGIES Allergen Reactions Contrast Dye [Iodin* Other: See Comments Mobic [Meloxicam] Intolerance GI bleed with transfusion Motrin [Ibuprofen] Other: See Comments GI Bleed Nsaids (Non-Steroid* Unknown Prednisone Contraindication-Medical Surgical GI bleed Scopolamine Mental Status Change Paranoia, confusion, hallucination CURRENT MEDICATIONS: acarbose (PRECOSE) 50 mg tablet Take 1 tablet by mouth three times daily. ALPRAZolam (XANAX) 0.25 mg tablet Take 0.5 tablets by mouth as needed. BIPAP Lifetime supplies for BiPAP 12/8 cm H20 including mask, heated tubing, humidity, filters. Dx:G47.33 blood sugar diagnostic (TRUE METRIX GLUCOSE TEST STRIP) test strip Use as instructed to check glucose 4 x daily or more as needed. Blood-Glucose Sensor (FREESTYLE NBA 3 SENSOR) vinny Use to check glucose 4 times or more daily. Change sensor every 14 days. CPAP/BIPAP/OTHER Type .CPAPSettings into a note to see current settings/supplies/DME information. cyanocobalamin 1,000 mcg/mL inject 1 milliliter intramuscularly ONCE A MONTH as instructed diclofenac (VOLTAREN ARTHRITIS PAIN) 1 % topical gel Apply 4 g to affected area four times daily. dulaglutide (TRULICITY) 1.5 mg/0.5 mL pen injector Inject 1.5 mg subcutaneously one time a week. ergocalciferol 50,000 unit capsule (VITAMIN D2, DRISDOL) Take 1 capsule by mouth two times a week. glucagon (BAQSIMI) 3 mg/actuation nasal spray Use 1 [place] in the nose as needed for low blood sugar. May repeat after 15 minutes using a new device if there is no response. levothyroxine (SYNTHROID) 50 mcg tablet Take 1 tablet by mouth once daily. meclizine (ANTIVERT) 25 mg tab Take 0.5-1 tablets by mouth three times daily as needed (for dizziness.). pantoprazole DR (PROTONIX) 40 mg tablet Take 1 tablet by mouth as needed. promethazine (PHENERGAN) 25 mg tablet Take 25 mg by mouth four times daily as needed. Syringe with Needle, Safety (EASY TOUCH SHEATHLOCK SYRG-NDL) 3 mL 25 gauge x 1 syrg Weekly methotrexate injections, monthly vit b12 injections as instructed tretinoin (RETIN-A) 0.025 % topical cream Apply to affected area daily at bedtime. zaleplon (SONATA) 10 mg capsule Take 10 mg by mouth daily at bedtime. Pt takes 10mg qhs Prior Insomnia Medications (last 20 years) Some values may be hidden. Unless noted otherwise, only the newest values recorded on each date aredisplayed. Insomnia Medications ALPRAZolam (XANAX) 0.5 mg tablet Dose: 0.5 mg AT BEDTIME NEEDED Starting date: 11/13/2020 Ending date: 12/13/2020 ALPRAZolam 0.25 mg tab(s) (XANAX) Dose: 0.25 mg ONCE Starting date: 11/26/2016 Ending date: 11/26/2016 ALPRAZolam 0.25 mg tab(s) (XANAX) Dose: 0.25 mg 2 TIMES DAILY NEEDED Starting date: 11/26/2016 Ending date: 11/28/2016 (Discontinued) ALPRAZolam 0.25 mg tab(s) (XANAX) Dose: 0.25 mg 2 TIMES DAILY NEEDED Starting date: 12/12/2016 Ending date: 12/14/2016 (Discontinued) ALPRAZolam (XANAX) 0.25 mg tablet Dose: (Patient not taking as of 11/04/2020 8:02 AM, Patient not taking as of 08/15/2020 1:57 PM) Starting date: 06/25/2017 Ending date: 11/13/2020 (Discontinued) ALPRAZolam (XANAX) 0.25 mg tablet Dose: 0.5 tablet NEEDED Starting date: 09/10/2021 (active) doxepin capsule 10 mg Dose: 10 mg 2 TIMES DAILY (Patient not taking as of 09/17/2021 12:51 PM, Patient not taking as of 04/15/2021 3:58 PM, Patient not taking as of 10/21/2020 7:52 AM) Starting date: 08/08/2020 Ending date: 09/17/2021 (Discontinued) FLUoxetine (PROZAC) 10 mg capsule Dose: Take as needed for up to 2 weeks prior to menses. Starting date: 01/10/2018 Ending date: 04/20/2018 (Discontinued) fluvoxaMINE (LUVOX) 100 mg tablet Dose: 1/2 tab po q bedtime x 2 weeks then 1 po q bedtime x 2 weeks then 1 and 1/2 tab po q bedtime thereafter Starting date: 01/08/2022 Ending date: 06/11/2022 (Discontinued) melatonin 3 mg tab(s) Dose: 3 mg AT BEDTIME Starting date: 12/10/2016 Ending date: 12/14/2016 (Discontinued) midazolam (PF) 1 mg injection (VERSED) Dose: 1 mg PRE-OP ONCE May repeat 1 mg in 10 minutes for a total of 2 mg IV Starting date: 11/24/2016 Ending date: 11/24/2016 traZODone (DESYREL) 150 mg tablet Dose: 150 mg AT BEDTIME 75 mg twice a day Starting date: Ending date: 01/08/2022 (Discontinued) zaleplon (SONATA) 10 mg capsule Dose: 10 mg AT BEDTIME Starting date: 03/10/2021 Ending date: 08/04/2021 (Discontinued) zaleplon (SONATA) 10 mg capsule Dose: 10 mg AT BEDTIME Starting date: 08/04/2021 Ending date: 09/11/2021 (Discontinued) zaleplon (SONATA) 10 mg capsule Dose: 10 mg AT BEDTIME Starting date: 09/11/2021 Ending date: 09/29/2021 (Discontinued) zaleplon (SONATA) 10 mg capsule Dose: 10 mg AT BEDTIME Starting date: 10/11/2021 Ending date: 11/10/2021 (Discontinued) zaleplon (SONATA) 10 mg capsule Dose: 10 mg AT BEDTIME Starting date: 11/10/2021 Ending date: 12/12/2021 (Discontinued) zaleplon (SONATA) 10 mg capsule Dose: 10 mg AT BEDTIME Starting date: 12/12/2021 Ending date: 12/17/2021 (Discontinued) zaleplon (SONATA) 10 mg capsule Dose: 10 mg AT BEDTIME Starting date: 01/11/2022 Ending date: 03/31/2022 (Discontinued) zaleplon (SONATA) 10 mg capsule Dose: 10 mg AT BEDTIME Starting date: 04/09/2022 Ending date: 06/08/2022 zaleplon (SONATA) 10 mg capsule Dose: 10 mg AT BEDTIME Pt takes 10mg qhs Starting date: (active) zaleplon (SONATA) 5 mg capsule Dose: 5 mg AT BEDTIME Starting date: 01/06/2021 Ending date: 03/10/2021 (Discontinued) zaleplon (SONATA) 5 mg capsule Dose: Take 1 capsule if unable to fall back to sleep after waking during night as long as 4 hours remain for sleep. Starting date: 03/20/2021 Ending date: 07/08/2021 (Discontinued) zaleplon (SONATA) 5 mg capsule Dose: Take 1 capsule if unable to fall back to sleep after waking during night as long as 4 hours remain for sleep. Starting date: 07/08/2021 Ending date: 10/01/2021 (Discontinued) zaleplon (SONATA) 5 mg capsule Dose: Take 1 capsule if unable to fall back to sleep after waking during night as long as 4 hours remain for sleep. Starting date: 10/01/2021 Ending date: 10/31/2021 zaleplon (SONATA) 5 mg capsule Dose: Take 2-5 mg capsules at bedtime; May take 1-5 mg capsule during the night as needed as long as there are an additional 4 hrs sleep Starting date: 11/27/2021 Ending date: 12/11/2021 zaleplon (SONATA) 5 mg capsule Dose: Take 1 capsule if unable to fall back to sleep after waking during night as long as 4 hours remain for sleep. Do not start before December 28, 2021. Starting date: 12/28/2021 Ending date: 03/30/2022 (Discontinued) zaleplon (SONATA) 5 mg capsule Dose: Take 1 capsule if unable to fall back to sleep after waking during night as long as 4 hours remain for sleep. Starting date: 03/31/2022 Ending date: 05/13/2022 (Discontinued) zaleplon (SONATA) 5 mg capsule Dose: Take 1 capsule if unable to fall back to sleep after waking during night as long as 4 hours remain for sleep. Do not start before May 28, 2022. Starting date: 05/28/2022 Ending date: 07/14/2022 (Discontinued) zaleplon (SONATA) 5 mg capsule Dose: 10 mg AT BEDTIME Take 1 capsule if unable to fall back to sleep after waking during night as long as 4 hours remain for sleep. Starting date: 07/14/2022 Ending date: 09/12/2022 PHYSICAL EXAMINATION: Neurological exam: Patient approapriately answering questions. Language function normal. Memory normal. Speech fluent. IMPRESSION: Talia (obstructive sleep apnea) (primary encounter diagnosis) Chronic insomnia Psychophysiological insomnia Rheumatoid arthritis of multiple sites without rheumatoid factor (hcc) Type 2 diabetes mellitus without complication, without long-term current use of insulin (hcc) Anemia, unspecified type Chronic lymphocytic thyroiditis Fibromyalgia Obesity, class i, bmi 30-34.9 Gastroesophageal reflux disease without esophagitis Type 2 diabetes mellitus without retinopathy (hcc) Dysmetabolic syndrome x Clinical Global Impression of Change ( CGI-C) Compared to the patient's condition at baseline, how much has the patient changed? Much worse This is a 47-year-old female with a past medical history of severe TALIA not currently on PAP therapy, chronic insomnia, anxiety, depression, PTSD, obesity, type 2 diabetes and RA who presents via virtual visit for follow-up management of her sleep concerns. She is unfortunately not using PAP therapy due to not having a mask that fits her. She has tried several styles of masks in the past that have not worked out. She currently does not have a mask that fits and is not eligible per insurance for several more months. She notes she cannot afford to purchase a mask [id number]. She does note that her sleeping has become worse without PAP therapy. She is also having significant difficulties establishing a regular sleep-wake cycle and obtaining adequate amounts of sleep. She is currently taking zaleplon 10 mg, ZzzQuil and alprazolam. She notes despite this combination she is still unable to obtain more than a few hours of sleep at a time. Shereports her mood is very low and she can go from periods of crying to rage. She is working with mental health care providers. We reviewed the recommendations discussed at her last several visits withus in the sleep medicine center to establish care with behavioral sleep medicine to help obtain a more routine sleep-wake cycle as this will help with both her mood and memory. She was also advised to start Luvox, however continues to endorse that she is fearful this will disrupt her sleep more than it already is and is not planning on starting. Reviewed concerns of taking zaleplon, clonazepam in combination with [id number] ZzzQuil. She reports this is the only thing that seems to be helping her at this time. As she has not followed advice and suggestions that we have discussed at her last visits, I have asked Vashti if there is anything that she thinks we should be doing differently to try and help her. She reports that she would like us to reach out to her insurance to see if there is any way of getting her new mask and help with getting an appointment with behavioral sleep medicine center. I have advised her that I will try to do both of these things and that she should follow-up with us after she has establish care with behavioral sleep medicine center. PLAN: Establish care with behavioral sleep medicine Follow-up with Dr. Aj for alternative medication management. Continue care with your mental health care providers and other specialists Dulce Serrano APRN.DRILL [employer] I spent a total of 35 minutes on the date of the service which included preparing to see the patient, [id number] patient care, completing clinical documentation, obtaining and/or reviewing separately obtained history, and counseling and educating the patient/family/caregiver. [facility] NoteHNO ID: [id number] Author: Thaddeus Diggs MD Service: ? Author Type: Physician Type: Progress Notes Filed: 11/13/2022 9:18 AM Note Text: Impression: This is Ms. Esme Morfin, a 47 year old female who presents to the [facility] with cognitive complaints (short-term memory loss, issues getting words to come out the right way). Also concerned about possible changes on MRI. Risk factors in this case for cognitive complaints Depression, fibromyalgia, anxiety, sleep apnea, thyroiditis B12 deficiency anemia History of gastric bypass Medication regimen Many issues to consider as regards cognitive complaints. This is likely multifactorial issue. Likely result of polypharmacy as well as untreated sleep apnea due to need for updated CPAP equipment. Also with history of vitamin deficiency that needs to be investigated further. Also with very stressful life situation at the moment. Plan: -Laboratory studies. B12, B1, B6, folate, vitamin D, ferritin. - Follow-up with sleep medicine. Message sent to my colleague in sleep disorders. - Follow-up with endocrinology. Not currently taking Synthroid. - Follow-up in clinic with me 11/26/2022. Thaddeus Diggs MD Staff, [facility] [place] HPI: This is Ms. Esme Morfin, a 47 year old female who presents to the [facility] with cognitive complaints (short-term memory loss, issues getting words to come out the right way). Also concerned about possible changes on MRI. 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 Acevedo and FRANK Serrano Communicates with them Psychiatrist now prescribing sleep med to her Compliant with CPAP Mask not working In the last month, wearing it maybe 1-2 nights These days, no alcohol + Sonata 5-10mg QHS + 3 shots of Zquil QHS + 1-2 mg Xanax QHS 3-4 hours later, takes more + Sonata 5mg + 3 shots of Zquil + 1-2 mg Xanax Sometimes takes the above 3 times a day starting at 2 PM or so I'm going to bed now Has full conversations on the above, texts, social media posts and doesn't realize it History of vitamin deficiency B12, B1, folate, iron, D all off historically Gastric bypass 2017 Doesn't really take supplements Has history of thyroiditis, thyroidectomy partial? Sees Endo Recently TSH going up Recommended to take synthroid again Didn't tolerate it Stopped it Doesn't know what to do Endo not aware Risk factors in this case for cognitive complaints Depression, fibromyalgia, anxiety, sleep apnea, thyroiditis B12 deficiency anemia History of gastric bypass Past history per chart review includes: Past medical history, problem list: Depression, fibromyalgia, anxiety, rheumatoid arthritis, thyroiditis, sleep apnea, diabetes, B12 deficiency anemia, dysmetabolic syndrome Past surgical history: ? Partial/incomplete thyroidectomy, history of gastric bypass Family history: Thyroid (mother, sister) Social history: Non-smoker, social alcohol OBJECTIVE: PHYSICAL EXAM: Neurological: Mental Status: Alert. Speech fluent. Oriented to person, place, exact date. Expression, repetition, naming, concentration intact. Recent and remote memory intact. Follows a complex, midline crossing command after repeat Incorrect at first. Cranial Nerves: CN IX: No hypophonia. Motor: No overt resting tremor with distraction. Gait: Stands with arms crossed. Ambulates easily in the clinic rao. Normal, narrow-based gait. Good arm swing- on left, perhaps reduced on right. Turns easily. No shuffling. This note was partially created using voice recognition software and is inherently subject to errors including those of syntax and sound-alike substitutions which may escape proofreading. In such instances, original meaning may (more content not included)...[facility]10-06-2023 History of Present illness Narrative* Thaddeus Diggs MD - 11/13/2022 8:00 AM EDT Impression: This is Ms. Esme Morfin, a 47 year old female who presents to the [facility] with cognitive complaints (short-term memory loss, issues getting words to come out the right way). Also concerned about possible changes on MRI. Risk factors in this case for cognitive complaints Depression, fibromyalgia, anxiety, sleep apnea, thyroiditis B12 deficiency anemia History of gastric bypass Medication regimen Many issues to consider as regards cognitive complaints. This is likely multifactorial issue. Likely result of polypharmacy as well as untreated sleep apnea due to need for updated CPAP equipment. Also with history of vitamin deficiency that needs to be investigated further. Also with very stressful life situation at the moment. Plan: -Laboratory studies. B12, B1, B6, folate, vitamin D, ferritin. - Follow-up with sleep medicine. Message sent to my colleague in sleep disorders. - Follow-up with endocrinology. Not currently taking Synthroid. - Follow-up in clinic with me 11/26/2022. Thaddeus Diggs MD Staff, [facility] [place] HPI: This is Ms. Esme Morfin, a 47 year old female who presents to the [facility] with cognitive complaints (short-term memory loss, issues getting words to come out the right way). Also concerned about possible changes on MRI. 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 Acevedo and FRANK Serrano Communicates with them Psychiatrist now prescribing sleep med to her Compliant with CPAP Mask not working In the last month, wearing it maybe 1-2 nights These days, no alcohol + Sonata 5-10mg QHS + 3 shots of Zquil QHS + 1-2 mg Xanax QHS 3-4 hours later, takes more + Sonata 5mg + 3 shots of Zquil + 1-2 mg Xanax Sometimes takes the above 3 times a day starting at 2 PM or so I'm going to bed now Has full conversations on the above, texts, social media posts and doesn't realize it History of vitamin deficiency B12, B1, folate, iron, D all off historically Gastric bypass 2018 Doesn't really take supplements Has history of thyroiditis, thyroidectomy partial? Sees Endo Recently TSH going up Recommended to take synthroid again Didn't tolerate it Stopped it Doesn't know what to do Endo not aware Risk factors in this case for cognitive complaints Depression, fibromyalgia, anxiety, sleep apnea, thyroiditis B12 deficiency anemia History of gastric bypass Past history per chart review includes: Past medical history, problem list: Depression, fibromyalgia, anxiety, rheumatoid arthritis, thyroiditis, sleep apnea, diabetes, B12 deficiency anemia, dysmetabolic syndrome Past surgical history: ? Partial/incomplete thyroidectomy, history of gastric bypass Family history: Thyroid (mother, sister) Social history: Non-smoker, social alcohol OBJECTIVE: PHYSICAL EXAM: Neurological: Mental Status: Alert. Speech fluent. Oriented to person, place, exact date. Expression, repetition, naming, concentration intact. Recent and remote memory intact. Follows a complex, midline crossing command after repeat Incorrect at first. Cranial Nerves: CN IX: No hypophonia. Motor: No overt resting tremor with distraction. Gait: Stands with arms crossed. Ambulates easily in the clinic rao. Normal, narrow-based gait. Good arm swing- on left, perhaps reduced on right. Turns easily. No shuffling. This note was partially created using voice recognition software and is inherently subject to errors including those of syntax and sound-alike substitutions which may escape proofreading. In such instances, original meaning may be extrapolated by contextual derivation. I spent a total of 57 minutes on the date of the service which included time spent preparing to seethe patient, talking to the patient/documenting in the chart, briefly examining the patient, documenting in the chart thereafter, communicating with a colleague about the case, placing orders in the chart, arranging for follow-up. documented [facility]09-[facility]23 NoteHNO ID: [id number] Author: Trixie Hunt RT(R) Service: ? Author Type: Technologist Type: Progress Notes Filed: 10/27/2022 10:25 AM Note Text: Radiology Service Progress Note PATIENT NAME: Esme Morfin DATE OF SERVICE: October 27, 2022 TIME: 10:25 AM PATIENT IDENTITY VERIFICATION COMPLETED USING TWO (2) IDENTIFIERS: Name and Date of confirmed by patient verbally. FALL SCREENING: Has the patient had 2 falls in the last year or 1 fall with injury or currently using an Ambulatory Assistive Device (Walker, Cane, Wheelchair, Crutches, etc.)? No PATIENT GENDER DATA: Female. status: : No status: NO. PATIENT RELEVANT IMPLANT DATA REVIEWED: Yes RADIOLOGY DEPARTMENT: Mammography PERIPHERAL IV DATA: Not applicable SIGNED BY: RT Kristin(R) October 27, 2022 10:25 [facility]09-19-2023 Miscellaneous Notes* Letter - Coordinator, Mammography - 10/27/2022 11:12 AM EDT October 28, 2022 PID: [id number] Esme Morfin [address] [place] [address] Dear Ms. Morfin, We are pleased to inform you that the results of your recent breast imaging exam on 10/27/2022 are normal. Your mammogram demonstrates that you have dense breast tissue, which could hide abnormalities. Dense breast tissue, in and of itself, is a relatively common condition. Therefore, this information is not provided to cause undue concern; rather, it is to raise your awareness and promote discussion with your health care provider regarding the presence of dense breast tissue in addition to other riskfactors. Early detection of cancer is very important. We also understand recommendations regarding breast cancer screening are controversial. Please discuss with your primary care provider which strategy is best for you and whether a mammogram is right for you. Your imaging studies and report will be [facility] as part of your permanent medical record and are available for your continuing care. Thank you for allowing us to help in meeting your health care needs. Sincerely, Dr. Pagan Interpreting Radiologist [facility] (Normal over 40) documented in this encounterT[facility]edo [facility]09-19-2023 History of Present illness Narrative* Trixie Hunt RT(R) - 10/27/2022 10:10 AM EDT Radiology Service Progress Note PATIENT NAME: Esme Morfin DATE OF SERVICE: October 27, 2022 TIME: 10:25 AM PATIENT IDENTITY VERIFICATION COMPLETED USING TWO (2) IDENTIFIERS: Name and Date of confirmedby patient verbally. FALL SCREENING: Has the patient had 2 falls in the last year or 1 fall with injury or currently using an Ambulatory Assistive Device (Walker, Cane, Wheelchair, Crutches, etc.)? No PATIENT GENDER DATA: Female. status: : No status: NO. PATIENT RELEVANT IMPLANT DATA REVIEWED: Yes RADIOLOGY DEPARTMENT: Mammography PERIPHERAL IV DATA: Not applicable SIGNED BY: RT Kristin(R) October 27, 2022 10:25 AM documented in this encounterT[facility]09-18-2023 Miscellaneous Notes* Telephone Encounter - Alisha Peterson RN - 10/26/2022 3:48 PM EDT KRISTIN 07/16/22 NOV 11/30/22 RX pending for Trulicity 1.5 mg. Please review and advise. Thank you. documented in this encounterT[facility]09-18-2023 Miscellaneous Notes* Telephone Encounter - Anna Gold RN - 10/26/2022 3:06 PM EDT Please see message and advise. documented in this encounterT[facility]09-15-2023 NoteHNO ID: [id number] Author: Dariel Le MD Service: ? Author Type: Physician Type: Progress Notes Filed: 10/23/2022 5:06 PM Note Text: [facility] Surgery [place] Department of Cardiology [address] [place] [address] (office) [phone] (fax) 10/23/2022 This note was written using medical terminology and is intended to be used for medical purposes by other health director of managed care Patient presents with: New Patient Evaluation HPI: Ms. Morfin is a 47 year old female with below PMH who was last seen by Dr. Sea Collins on 10/24/2020 for palpitations after recent COVID infection. She was noted to have significant anxiety and EtOH abuse. She had discontinued alcohol use at that time and was maintained on Toprol-XL 12.5 mg daily for brief PSVT noted on Zio. Stress testing was obtained for dyspnea on exertion and was unremarkable She last saw Luis F Barraza CNP in cardiology clinic on 06/16/2022 and she was wearing Holter placed by an outside physician at the time. She is now scheduled at [place] for preop cardiovascular assessment prior to endometrial biopsy with endocervical sampling on 10/23/2022. Preop note on 10/13/2022 states she is optimally prepared for surgery and telephone encounters document that both cardiology and endocrinology felt she was at appropriate risk to proceed with her procedure as planned, but she is schedule before she loses her insurance on 11/07/22. Per HANDP 10/06/22: Today she denies any chest pain or shortness of breath. She is struggling with nocturnal hypoglycemia which worsens palpitations at night. She is no longer taking Toprol therapy she has chronic postural dizziness when turning her head in a certain position. She mentions that she has been difficult intubation/anesthesia in the past and therefore her procedure location has changed. She lost her job within the last year and now will lose her insurance. This has caused some depression and weight gain of 30 pounds. She has little will to do much but sleep. Cardiology: The review of symptoms was negative for see HPI for details, no JEFFERSON. General ROS: Otherwise 14 systems ROS is negative except as stated above. 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 90 tablet 3 ergocalciferol 50,000 unit capsule (VITAMIN D2, DRISDOL) Take 1 capsule by mouth two times a week. 24 capsule 3 zaleplon (SONATA) 10 mg capsule Take 10 mg by mouth daily at bedtime. Pt takes 10mg qhs dulaglutide (TRULICITY) 0.75 mg/0.5 mL pen injector Inject 0.75 mg subcutaneously one time a week. 2 mL 2 acarbose (PRECOSE) 50 mg tablet Take 1 tablet by mouth three times daily. 90 tablet 2 glucagon (BAQSIMI) 3 mg/actuation nasal spray Use 1 [place] in the nose as needed for low blood sugar. May repeat after 15 minutes using a new device if there is no response. 2 Each 2 Blood-Glucose Sensor (Best Before MediaSTYLE NBA 3 SENSOR) vinny Use to check glucose 4 times or more daily. Change sensor every 14 days. 2 Each 11 blood sugar diagnostic (TRUE METRIX GLUCOSE TEST STRIP) test strip Use as instructed to check glucose 4 x daily or more as needed. 400 Each 2 tretinoin (RETIN-A) 0.025 % topical cream Apply to affected area daily at bedtime. 20 g 2 diclofenac (VOLTAREN ARTHRITIS PAIN) 1 % topical gel Apply 4 g to affected area four times daily. 100 g 1 CPAP/BIPAP/OTHER Type .CPAPSettings into a note to see current settings/supplies/DME information. 1 Each 0 ALPRAZolam (XANAX) 0.25 mg tablet Take 0.5 tablets by mouth as needed. meclizine (ANTIVERT) 25 mg tab Take 0.5-1 tablets by mouth three times daily as needed (for dizziness.). 30 tablet 1 BIPAP Lifetime supplies for BiPAP 12/8 cm H20 including mask, heated tubing, humidity, filters. Dx: G47.33 promethazine (PHENERGAN) 25 mg tablet Take 25 mg by mouth four times daily as needed. cyanocobalamin 1,000 mcg/mL inject 1 milliliter intramuscularly ONCE A MONTH as instructed [address] (PROTONIX) 40 mg tab (more content not included)...[facility]09-15-2023 Instructions* Patient Instructions* Dariel Le MD - 10/23/2022 3:33 PM EDT Aim for 15mins of walking/daily Continue current medications Consider discussing your mood with your PCP Consider reading The Whole Heart Solution by Raúl Salazar, The Spectrum by Saul Jesus or Whole Body Reset by Immanuel Dorado (for 50yo+). Watch the documentaries [place] and That Sugar Film to learn more about plant-based/low carbohydrate eating. [facility] History of Present illness Narrative* Dariel Le MD - 10/23/2022 3:00 PM EDT Images from the original note were not included. [facility] Department of Cardiology [address] [place] [address] (office) [phone] (fax) 10/23/2022 This note was written using medical terminology and is intended to be used for medical purposes by other health director of managed care Patient presents with: New Patient Evaluation HPI: Ms. Morfin is a 47 year old female with below PMH who was last seen by Dr. Sea Collins on 10/24/2020 for palpitations after recent COVID infection. She was noted to have significant anxiety andEtOH abuse. She had discontinued alcohol use at that time and was maintained on Toprol-XL 12.5 mg daily for brief PSVT noted on Zio. Stress testing was obtained for dyspnea on exertion and was unremarkable She last saw Luis F Barraza CNP in cardiology clinic on 06/16/2022 and she was wearing Holter placed by an outside physician at the time. She is now scheduled at [place] for preop cardiovascular assessment prior to endometrial biopsy with endocervical sampling on 10/23/2022. Preop note on 10/13/2022 states she is optimally prepared for surgery and telephone encounters document that both cardiology and endocrinology felt she was at appropriate risk to proceed with her procedure as planned, but she is schedule before she loses her insurance on 11/07/22. Per H&P 10/06/22: Today she denies any chest pain or shortness of breath. She is struggling with nocturnal hypoglycemia which worsens palpitations at night. She is no longer taking Toprol therapy she has chronic postural dizziness when turning her head in a certain position. She mentions that she has been difficult i ntubation/anesthesia in the past and therefore her procedure location has changed. She lost her jobwithin the last year and now will lose her insurance. This has caused some depression and weight gain of 30 pounds. She has little will to do much but sleep. Cardiology: The review of symptoms was negative for see HPI for details, no JEFFERSON. General ROS: Otherwise 14 systems ROS is negative except as stated above. 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 90 tablet 3 ergocalciferol 50,000 unit capsule (VITAMIN D2, DRISDOL) Take 1 capsule by mouth two times a week. 24 capsule 3 zaleplon (SONATA) 10 mg capsule Take 10 mg by mouth daily at bedtime. Pt takes 10mg qhs dulaglutide (TRULICITY) 0.75 mg/0.5 mL pen injector Inject 0.75 mg subcutaneously one time a week. 2 mL 2 acarbose (PRECOSE) 50 mg tablet Take 1 tablet by mouth three times daily. 90 tablet 2 glucagon (BAQSIMI) 3 mg/actuation nasal spray Use 1 [place] in the nose as needed for low blood sugar. May repeat after 15 minutes using a new device if there is no response. 2 Each 2 Blood-Glucose Sensor (FREESTYLE NBA 3 SENSOR) vinny Use to check glucose 4 times or more daily. Change sensor every 14 days. 2 Each 11 blood sugar diagnostic (TRUE METRIX GLUCOSE TEST STRIP) test strip Use as instructed to check glucose 4 x daily or more as needed. 400 Each 2 tretinoin (RETIN-A) 0.025 % topical cream Apply to affected area daily at bedtime. 20 g 2 diclofenac (VOLTAREN ARTHRITIS PAIN) 1 % topical gel Apply 4 g to affected area four times daily. 100 g 1 CPAP/BIPAP/OTHER Type .CPAPSettings into a note to see current settings/supplies/DME information. 1Each 0 ALPRAZolam (XANAX) 0.25 mg tablet Take 0.5 tablets by mouth as needed. meclizine (ANTIVERT) 25 mg tab Take 0.5-1 tablets by mouth three times daily as needed (for dizziness.). 30 tablet 1 BIPAP Lifetime supplies for BiPAP 12/8 cm H20 including mask, heated tubing, humidity, filters. Dx:G47.33 promethazine (PHENERGAN) 25 mg tablet Take 25 mg by mouth four times daily as needed. cyanocobalamin 1,000 mcg/mL inject 1 milliliter intramuscularly ONCE A MONTH as instructed [address] (PROTONIX) 40 mg tablet Take 1 tablet by mouth as needed. Syringe with Needle, Safety (EASY TOUCH SHEATHLOCK SYRG-NDL) 3 mL 25 gauge x 1 syrg Weekly methotrexate injections, monthly vit b12 injections as instructed 15 Syringe 3 No current facility-administered medications for this visit. ALLERGIES Allergen Reactions Contrast Dye [Iodin* Other: See Comments Mobic [Meloxicam] Intolerance GI bleed with transfusion Motrin [Ibuprofen] Other: See Comments GI Bleed Nsaids (Non-Steroid* Unknown Prednisone Contraindication-Medical Surgical GI bleed Scopolamine Mental Status Change Paranoia, confusion, hallucination AVAILABLE LABS, EKGS, CARDIAC TESTING/PROCEDURES SINCE LAST VISIT WERE REVIEWED AND UPDATED IN [facility]. PATIENT: Name: MS. ESME MORFIN Age: 45 years Gender: F CONCLUSIONS: 1. SPECT Perfusion Study: Normal. 2. There is no scintigraphic evidence for inducible ischemia. 3. No evidence of scarred myocardium. 4. Left ventricle is normal in size. The left ventricle systolic function is normal. 5. Right ventricle is normal in size. The right ventricle systolic function is normal. 6. This is a low risk scan. Gated Stress FBP LVEF % 81 12/29 Zio: [employer]agerie Patient Name: Esme Morfin : [id number] Findings Final Interpretation Patient had a min HR of 44 bpm, max HR of 143 bpm, and avg HR of 83 bpm. Predominant underlying rhythm was Sinus Rhythm. QRS morphology changes were present throughout recording. 6 SupraventricularPreliminary Findings Final Interpretation Patient had a min HR of 44 bpm, max HR of 143 bpm, and avg HR of 83 bpm. Predominant underlying rhythm was Sinus Rhythm. QRS morphology changes were present throughout recording. 6 Supraventricular Tachycardia runs occurred, the run with the fastest interval lasting 13 beats with a max rate of 143 bpm (avg 133 bpm); the run with the fastest interval was also the longest. Isolated SVEs were rare (<1.0%), SVE Couplets were rare (<1.0%), and no SVE Triplets were present. Isolated VEs were rare (<1.0%), and no VE Couplets or VE Triplets were present. Ventricular Bigeminy was present.The event monitor was reviewed and I agree with the interpretation Christiano Busch MD LABORATORY TESTS: CBC: WBC HGB PLT 6.26 13.6 219 CHEMISTRY: NA K CA CHLOR CO2 GLUC BUN CREAT 138 4.0 9.1 105 22 101 10 0.92 HEPATIC: ALT AST 42 27 METABOLIC: CHOL LDL HDL TG TSH HBA1C 145 75 56 70 4.130 6.2 COAG: APTT INR 30.8 0.93 PHYSICAL EXAM: BP 128/80 Pulse 79 Ht 158.2 cm (5' 2.3 ) Wt 99.8 kg (220 lb) LMP 09/13/2022 (Approximate) BMI 39.85 kg/m General: Well appearing, in no acute distress, speaking in complete sentences. Skin: No clubbing, no cyanosis. Eyes: Extra ocular movements intact Oropharynx: Teeth in good repair. Neck: no jugular venous distention,, no carotid bruits, Lungs: Clear to auscultation bilaterally, no wheezing or rhonchi. Heart: Regular rhythm, S1, S2 normal, no murmur, no ectopy Abdomen: Soft, nontender Extremities: No peripheral edema . Grade 2/4 distal pulses bilaterally. Neuro: Oriented to person, place and time, alert, cooperative ASSESSMENT: (Z01.810) Preop cardiovascular exam (primary encounter diagnosis) (R73.03) Prediabetes (G47.33) TALIA (obstructive sleep apnea) (E66.9) Obesity, Class II, BMI 35-39.9 PLAN: -OSH Event monitor report is somewhat confusing as it states that the longest episode of PSVT was 4beats and it lasted for 22 minutes and 38 seconds??? Elsewhere, it states only brief PSVT w/ no sustained atrial arrhythmia. In any event, she has no significant palpitations and overall ectopy burden is low. No further treatment is needed for this besides continued compliance with CPAP. -BP at goal -Defer to Endo resugar management and use of GLP-1 (?history of thyroid cancer) -Recent echo shows normal structure and function of heart with no significant valvular heart disease. 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 -BMI above goal-exercise goals are reviewed -She would benefit for evaluation/management of her under lying mood -Follow-up with her established cardiology clinic as previously directed. Thank you for allowing me to participate in the care of your patient. Please feel free to contact me with any questions or concerns. Sincerely- Dariel Le MD Staff Child Development Professor No orders of the defined types were placed in this encounter. [facility] in [facility]09-15-2023 Miscellaneous Notes* Telephone Encounter - Ana Aaron - 10/23/2022 12:51 PM EDT Patient is now scheduled for card diane Aaron October 23, 2022 * Telephone Encounter - Michael Marie RN - 10/23/2022 11:22 AM EDT Can schedule first available unless Dr Collins can squeeze pt in Pt has not seen Dr Collins since 10/24/20 * Telephone Encounter - Katalina Kennedy - 10/23/2022 11:11 AM EDT Patient needs a cardiac clearance appt before she loses her insurance 11/07/22. No appts pulling prior Are you able to assist patient? documented in this encounterT[facility]08-31-2023 Miscellaneous Notes* Telephone Encounter - Luis F Barraza, [email or web address] - 10/08/2022 1:30 PM EDT monitor reviewed occasional PACs, PSVT--- no concerning dysrhythmias on monitor Luis F Barraza RN, MSN, URBAN REDEVELOPMENT SPECIALIST-C Adult Nurse Practitioner Rowan Verma Department of Cardiovascular Medicine [facility], Thoracic [facility] * Telephone Encounter - Norm Hanna PA-C - 10/08/2022 10:46 AM EDT Images from the original note were not included. Event monitor results from PCP 06/2022 full report will be scanned into [facility]. Norm Hanna PA-C * Telephone Encounter - Luis F Barraza, [email or web address] - 10/07/2022 1:58 PM EDT patient had a monitor at an outside hospital --- I never got the results please find Hx of PVCs and was previously on metoprolol and may need again if she is still having palpitations BP and HR??? Luis F Barraza, RN, MSN, URBAN REDEVELOPMENT SPECIALIST-C Adult Nurse Practitioner Rowan Verma Department of Cardiovascular Medicine [facility] V[facility], Thoracic [facility] * Telephone Encounter - Eleanor Kenny DO - 10/06/2022 4:23 PM EDT Esme declines to proceed at [facility] I will need to find a date/time at [place] that can be schedule please complete your workup thanks * Telephone Encounter - Lizzie Leavitt MD - 10/06/2022 3:11 PM EDT Should be fine from endocrine standpoint but awaiting labs that were recently ordered, thanks * Telephone Encounter - Norm Hanna PA-C - 10/06/2022 3:03 PM EDT Greetings Your patient was seen for preanesthesia consult 10/06/2022. Esme Morfin is scheduled for ENDOMETRIAL BX W/ ENDOCERVICAL SAMPLING W/O CERVICAL DILATION with Dr. Eleanor Kenny on 10/23/2022. Patient still complaining of palpations mostly at night time. Patient will complete pre op lab work 10/07/2022 AM. Do you feel they are medically optimized and ok to proceed as scheduled? How should we proceed? Thank you, Norm Hanna PA-C Preanesthesia Consultation Clinic documented in this encounterT[facility]08-30-2023 History of Past illness Narrative* Problem Noted Date Diagnosed Date Resolved Date Palpitations 10/07/2022 10/23/2022 Obesity, Class I, BMI 30-34.9 01/10/2018 10/23/2022 Morbid obesity 11/24/2016 10/23/2022 Morbid obesity due to excess calories 08/31/2016 12/01/2016 Overview: Added automatically from request for surgery [id number] Hernia, paraesophageal 08/31/201612/01 Overview: Added automatically from request for surgery [id number] Mitral and aortic valve regurgitation 09/08/2009 10/23/2022 Overview: Aortic insufficiency EF 60% DR Zuniga -- judged to be non-surgical and mild Obesity, unspecified 06/17/2006 023 documented as of this encounter (statuses as of 10/23/2022) [facility] of Past illness Narrative* Problem Noted Date Diagnosed Date Resolved Date Palpitations 10/07/2022 10/23/2022 Obesity, Class I, BMI 30-34.9 01/10/2018 10/23/2022 Morbid obesity 11/24/2016 10/23/2022 Morbid obesity due to excess calories 08/31/2016 12/01/2016 Overview: Added automatically from request for surgery [id number] Hernia, paraesophageal 08/31/201612/01 Overview: Added automatically from request for surgery [id number] Mitral and aortic valve regurgitation 09/08/2009 10/23/2022 Overview: Aortic insufficiency EF 60% DR Zuniga -- judged to be non-surgical and mild Obesity, unspecified 06/17/2006 023 documented as of this encounter (statuses as of 10/24/2022) [facility] of Past illness Narrative* Problem Noted Date Diagnosed Date Resolved Date Palpitations 10/07/2022 10/23/2022 Obesity, Class I, BMI 30-34.9 01/10/2018 10/23/2022 Morbid obesity 11/24/2016 10/23/2022 Morbid obesity due to excess calories 08/31/2016 12/01/2016 Overview: Added automatically from request for surgery [id number] Hernia, paraesophageal 08/31/201612/01 Overview: Added automatically from request for surgery [id number] Mitral and aortic valve regurgitation 09/08/2009 10/23/2022 Overview: Aortic insufficiency EF 60% DR Zuniga -- judged to be non-surgical and mild Obesity, unspecified 06/17/2006 023 documented as of this encounter (statuses as of 10/27/2022) [facility] of Past illness Narrative* Problem Noted Date Diagnosed Date Resolved Date Palpitations 10/07/2022 10/23/2022 Obesity, Class I, BMI 30-34.9 01/10/2018 10/23/2022 Morbid obesity 11/24/2016 10/23/2022 Morbid obesity due to excess calories 08/31/2016 12/01/2016 Overview: Added automatically from request for surgery [id number] Hernia, paraesophageal 08/31/201612/01 Overview: Added automatically from request for surgery [id number] Mitral and aortic valve regurgitation 09/08/2009 10/23/2022 Overview: Aortic insufficiency EF 60% DR Zuniga -- judged to be non-surgical and mild Obesity, unspecified 06/17/2006 023 documented as of this encounter (statuses as of 10/28/2022) [facility] illness Narrative* Problem Noted Date Diagnosed Date Resolved Date Palpitations 10/07/2022 10/23/2022 Obesity, Class I, BMI 30-34.9 01/10/2018 10/23/2022 Morbid obesity 11/24/2016 10/23/2022 Morbid obesity due to excess calories 08/31/2016 12/01/2016 Overview: Added automatically from request for surgery [id number] Hernia, paraesophageal 08/31/201612/01 Overview: Added automatically from request for surgery [id number] Mitral and aortic valve regurgitation 09/08/2009 10/23/2022 Overview: Aortic insufficiency EF 60% DR Zuniga -- judged to be non-surgical and mild Obesity, unspecified 06/17/2006 023 documented as of this encounter (statuses as of 10/29/2022) [facility] illness Narrative* Problem Noted Date Diagnosed Date Resolved Date Palpitations 10/07/2022 10/23/2022 Obesity, Class I, BMI 30-34.9 01/10/2018 10/23/2022 Morbid obesity 11/24/2016 10/23/2022 Morbid obesity due to excess calories 08/31/2016 12/01/2016 Overview: Added automatically from request for surgery [id number] Hernia, paraesophageal 08/31/201612/01 Overview: Added automatically from request for surgery [id number] Mitral and aortic valve regurgitation 09/08/2009 10/23/2022 Overview: Aortic insufficiency EF 60% DR Zuniga -- judged to be non-surgical and mild Obesity, unspecified 06/17/2006 023 documented as of this encounter (statuses as of 10/29/2022) [facility] illness Narrative* Problem Noted Date Diagnosed Date Resolved Date Palpitations 10/07/2022 10/23/2022 Obesity, Class I, BMI 30-34.9 01/10/2018 10/23/2022 Morbid obesity 11/24/2016 10/23/2022 Morbid obesity due to excess calories 08/31/2016 12/01/2016 Overview: Added automatically from request for surgery [id number] Hernia, paraesophageal 08/31/201612/01 Overview: Added automatically from request for surgery [id number] Mitral and aortic valve regurgitation 09/08/2009 10/23/2022 Overview: Aortic insufficiency EF 60% DR Zuniga -- judged to be non-surgical and mild Obesity, unspecified 06/17/2006 023 documented as of this encounter (statuses as of 10/30/2022) [facility] Narrative* Problem Noted Date Diagnosed Date Resolved Date Palpitations 10/07/2022 10/23/2022 Obesity, Class I, BMI 30-34.9 01/10/2018 10/23/2022 Morbid obesity 11/24/2016 10/23/2022 Morbid obesity due to excess calories 08/31/2016 12/01/2016 Overview: Added automatically from request for surgery [id number] Hernia, paraesophageal 08/31/201612/01 Overview: Added automatically from request for surgery [id number] Mitral and aortic valve regurgitation 09/08/2009 10/23/2022 Overview: Aortic insufficiency EF 60% DR Zuniga -- judged to be non-surgical and mild Obesity, unspecified 06/17/2006 023 documented as of this encounter (statuses as of 11/14/2022) [facility] Narrative* Problem Noted Date Diagnosed Date Resolved Date Palpitations 10/07/2022 10/23/2022 Obesity, Class I, BMI 30-34.9 01/10/2018 10/23/2022 Morbid obesity 11/24/2016 10/23/2022 Morbid obesity due to excess calories 08/31/2016 12/01/2016 Overview: Added automatically from request for surgery [id number] Hernia, paraesophageal 08/31/201612/01 Overview: Added automatically from request for surgery [id number] Mitral and aortic valve regurgitation 09/08/2009 10/23/2022 Overview: Aortic insufficiency EF 60% DR Zuniga -- judged to be non-surgical and mild Obesity, unspecified 06/17/2006 023 documented as of this encounter (statuses as of 11/17/2022) [facility] Narrative* Problem Noted Date Diagnosed Date Resolved Date Palpitations 10/07/2022 10/23/2022 Obesity, Class I, BMI 30-34.9 01/10/2018 10/23/2022 Morbid obesity 11/24/2016 10/23/2022 Morbid obesity due to excess calories 08/31/2016 12/01/2016 Overview: Added automatically from request for surgery [id number] Hernia, paraesophageal 08/31/201612/01 Overview: Added automatically from request for surgery [id number] Mitral and aortic valve regurgitation 09/08/2009 10/23/2022 Overview: Aortic insufficiency EF 60% DR Zuniga -- judged to be non-surgical and mild Obesity, unspecified 06/17/2006 023 documented as of this encounter (statuses as of 11/24/2022) [facility] Narrative* Problem Noted Date Diagnosed Date Resolved Date Palpitations 10/07/2022 10/23/2022 Obesity, Class I, BMI 30-34.9 01/10/2018 10/23/2022 Morbid obesity 11/24/2016 10/23/2022 Morbid obesity due to excess calories 08/31/2016 12/01/2016 Overview: Added automatically from request for surgery [id number] Hernia, paraesophageal 08/31/201612/01 Overview: Added automatically from request for surgery [id number] Mitral and aortic valve regurgitation 09/08/2009 10/23/2022 Overview: Aortic insufficiency EF 60% DR Zuniga -- judged to be non-surgical and mild Obesity, unspecified 06/17/2006 023 documented as of this encounter (statuses as of 11/27/2022) [facility] Narrative* Problem Noted Date Diagnosed Date Resolved Date Palpitations 10/07/2022 10/23/2022 Obesity, Class I, BMI 30-34.9 01/10/2018 10/23/2022 Morbid obesity 11/24/2016 10/23/2022 Morbid obesity due to excess calories 08/31/2016 12/01/2016 Overview: Added automatically from request for surgery [id number] Hernia, paraesophageal 08/31/201612/01 Overview: Added automatically from request for surgery [id number] Mitral and aortic valve regurgitation 09/08/2009 10/23/2022 Overview: Aortic insufficiency EF 60% DR Zuniga -- judged to be non-surgical and mild Obesity, unspecified 06/17/2006 023 documented as of this encounter (statuses as of 11/30/2022) [facility]-30-2023 History of Past illness Narrative* Problem Noted Date Diagnosed Date Resolved Date Palpitations 10/07/2022 10/23/2022 Obesity, Class I, BMI 30-34.9 01/10/2018 10/23/2022 Morbid obesity 11/24/2016 10/23/2022 Morbid obesity due to excess calories 08/31/2016 12/01/2016 Overview: Added automatically from request for surgery [id number] Hernia, paraesophageal 08/31/201612/01 Overview: Added automatically from request for surgery [id number] Mitral and aortic valve regurgitation 09/08/2009 10/23/2022 Overview: Aortic insufficiency EF 60% DR Zuniga -- judged to be non-surgical and mild Obesity, unspecified 06/17/2006 023 documented as of this encounter (statuses as of 12/02/2022) [facility] History of Past illness Narrative* Problem Noted Date Diagnosed Date Resolved Date Palpitations 10/07/2022 10/23/2022 Obesity, Class I, BMI 30-34.9 01/10/2018 10/23/2022 Morbid obesity 11/24/2016 10/23/2022 Morbid obesity due to excess calories 08/31/2016 12/01/2016 Overview: Added automatically from request for surgery [id number] Hernia, paraesophageal 08/31/201612/01 Overview: Added automatically from request for surgery [id number] Mitral and aortic valve regurgitation 09/08/2009 10/23/2022 Overview: Aortic insufficiency EF 60% DR Zuniga -- judged to be non-surgical and mild Obesity, unspecified 06/17/2006 023 documented as of this encounter (statuses as of 12/02/2022) [facility] History of Past illness Narrative* Problem Noted Date Diagnosed Date Resolved Date Palpitations 10/07/2022 10/23/2022 Obesity, Class I, BMI 30-34.9 01/10/2018 10/23/2022 Morbid obesity 11/24/2016 10/23/2022 Morbid obesity due to excess calories 08/31/2016 12/01/2016 Overview: Added automatically from request for surgery [id number] Hernia, paraesophageal 08/31/201612/01 Overview: Added automatically from request for surgery [id number] Mitral and aortic valve regurgitation 09/08/2009 10/23/2022 Overview: Aortic insufficiency EF 60% DR Zuniga -- judged to be non-surgical and mild Obesity, unspecified 06/17/2006 023 documented as of this encounter (statuses as of 12/02/2022) [facility] History of Past illness Narrative* Problem Noted Date Diagnosed Date Resolved Date Palpitations 10/07/2022 10/23/2022 Obesity, Class I, BMI 30-34.9 01/10/2018 10/23/2022 Morbid obesity 11/24/2016 10/23/2022 Morbid obesity due to excess calories 08/31/2016 12/01/2016 Overview: Added automatically from request for surgery [id number] Hernia, paraesophageal 08/31/201612/01 Overview: Added automatically from request for surgery [id number] Mitral and aortic valve regurgitation 09/08/2009 10/23/2022 Overview: Aortic insufficiency EF 60% DR Zuniga -- judged to be non-surgical and mild Obesity, unspecified 06/17/2006 023 documented as of this encounter (statuses as of 12/02/2022) [facility] History of Past illness Narrative* Problem Noted Date Diagnosed Date Resolved Date Palpitations 10/07/2022 10/23/2022 Obesity, Class I, BMI 30-34.9 01/10/2018 10/23/2022 Morbid obesity 11/24/2016 10/23/2022 Morbid obesity due to excess calories 08/31/2016 12/01/2016 Overview: Added automatically from request for surgery [id number] Hernia, paraesophageal 08/31/201612/01 Overview: Added automatically from request for surgery [id number] Mitral and aortic valve regurgitation 09/08/2009 10/23/2022 Overview: Aortic insufficiency EF 60% DR Zuniga -- judged to be non-surgical and mild Obesity, unspecified 06/17/2006 023 documented as of this encounter (statuses as of 12/03/2022) [facility] History of Past illness Narrative* Problem Noted Date Diagnosed Date Resolved Date Palpitations 10/07/2022 10/23/2022 Obesity, Class I, BMI 30-34.9 01/10/2018 10/23/2022 Morbid obesity 11/24/2016 10/23/2022 Morbid obesity due to excess calories 08/31/2016 12/01/2016 Overview: Added automatically from request for surgery [id number] Hernia, paraesophageal 08/31/201612/01 Overview: Added automatically from request for surgery [id number] Mitral and aortic valve regurgitation 09/08/2009 10/23/2022 Overview: Aortic insufficiency EF 60% DR Zuniga -- judged to be non-surgical and mild Obesity, unspecified 06/17/2006 023 documented as of this encounter (statuses as of 12/13/2022) [facility] History of Past illness Narrative* Problem Noted Date Diagnosed Date Resolved Date Palpitations 10/07/2022 10/23/2022 Obesity, Class I, BMI 30-34.9 01/10/2018 10/23/2022 Morbid obesity 11/24/2016 10/23/2022 Morbid obesity due to excess calories 08/31/2016 12/01/2016 Overview: Added automatically from request for surgery [id number] Hernia, paraesophageal 08/31/201612/01 Overview: Added automatically from request for surgery [id number] Mitral and aortic valve regurgitation 09/08/2009 10/23/2022 Overview: Aortic insufficiency EF 60% DR Zuniga -- judged to be non-surgical and mild Obesity, unspecified 06/17/2006 023 documented as of this encounter (statuses as of 12/21/2022) [facility] History of Past illness Narrative* Problem Noted Date Diagnosed Date Resolved Date Palpitations 10/07/2022 10/23/2022 Obesity, Class I, BMI 30-34.9 01/10/2018 10/23/2022 Morbid obesity 11/24/2016 10/23/2022 Morbid obesity due to excess calories 08/31/2016 12/01/2016 Overview: Added automatically from request for surgery [id number] Hernia, paraesophageal 08/31/201612/01 Overview: Added automatically from request for surgery [id number] Mitral and aortic valve regurgitation 09/08/2009 10/23/2022 Overview: Aortic insufficiency EF 60% DR Zuniga -- judged to be non-surgical and mild documented as of this encounter (statuses as of 12/23/2022) [facility] History of Past illness Narrative* Problem Noted Date Diagnosed Date Resolved Date Palpitations 10/07/2022 10/23/2022 Obesity, Class I, BMI 30-34.9 01/10/2018 10/23/2022 Morbid obesity 11/24/2016 10/23/2022 Morbid obesity due to excess calories 08/31/2016 12/01/2016 Overview: Added automatically from request for surgery [id number] Hernia, paraesophageal 08/31/201612/01 Overview: Added automatically from request for surgery [id number] Mitral and aortic valve regurgitation 09/08/2009 10/23/2022 Overview: Aortic insufficiency EF 60% DR Zuniga -- judged to be non-surgical and mild documented as of this encounter (statuses as of 12/23/2022) [facility] History of Past illness Narrative* Problem Noted Date Diagnosed Date Resolved Date Palpitations 10/07/2022 10/23/2022 Obesity, Class I, BMI 30-34.9 01/10/2018 10/23/2022 Morbid obesity 11/24/2016 10/23/2022 Morbid obesity due to excess calories 08/31/2016 12/01/2016 Overview: Added automatically from request for surgery [id number] Hernia, paraesophageal 08/31/201612/01 Overview: Added automatically from request for surgery [id number] Mitral and aortic valve regurgitation 09/08/2009 10/23/2022 Overview: Aortic insufficiency EF 60% DR Zuniga -- judged to be non-surgical and mild documented as of this encounter (statuses as of 12/29/2022) [facility] History of Past illness Narrative* Problem Noted Date Diagnosed Date Resolved Date Palpitations 10/07/2022 10/23/2022 Obesity, Class I, BMI 30-34.9 01/10/2018 10/23/2022 Morbid obesity 11/24/2016 10/23/2022 Morbid obesity due to excess calories 08/31/2016 12/01/2016 Overview: Added automatically from request for surgery [id number] Hernia, paraesophageal 08/31/201612/01 Overview: Added automatically from request for surgery [id number] Mitral and aortic valve regurgitation 09/08/2009 10/23/2022 Overview: Aortic insufficiency EF 60% DR Zuniga -- judged to be non-surgical and mild documented as of this encounter (statuses as of 01/12/2023) [facility] History of Past illness Narrative* Problem Noted Date Diagnosed Date Resolved Date Palpitations 10/07/2022 10/23/2022 Obesity, Class I, BMI 30-34.9 01/10/2018 10/23/2022 Morbid obesity 11/24/2016 10/23/2022 Morbid obesity due to excess calories 08/31/2016 12/01/2016 Overview: Added automatically from request for surgery [id number] Hernia, paraesophageal 08/31/201612/01 Overview: Added automatically from request for surgery [id number] Mitral and aortic valve regurgitation 09/08/2009 10/23/2022 Overview: Aortic insufficiency EF 60% DR Zuniga -- judged to be non-surgical and mild documented as of this encounter (statuses as of 01/13/2023) [facility] History of Past illness Narrative* Problem Noted Date Diagnosed Date Resolved Date Palpitations 10/07/2022 10/23/2022 Obesity, Class I, BMI 30-34.9 01/10/2018 10/23/2022 Morbid obesity 11/24/2016 10/23/2022 Morbid obesity due to excess calories 08/31/2016 12/01/2016 Overview: Added automatically from request for surgery [id number] Hernia, paraesophageal 08/31/201612/01 Overview: Added automatically from request for surgery [id number] Mitral and aortic valve regurgitation 09/08/2009 10/23/2022 Overview: Aortic insufficiency EF 60% DR Zuniga -- judged to be non-surgical and mild documented as of this encounter (statuses as of 01/19/2023) [facility] History and physical note* Norm Hanna PA-C - 10/06/2022 2:40 PM EDT Images from the original note were not included. HISTORY AND PHYSICAL EXAMINATION SERVICE DATE: 10/06/2022 SERVICE TIME: 2:07 PM PRIMARY CARE PHYSICIAN: Frahat Pineda MD REASON FOR VISIT: Esme Morfin is a 47 year old female who is scheduled for ENDOMETRIAL BX W/ ENDOCERVICAL SAMPLING W/O CERVICAL DILATION at the request of Dr. Eleanor Kenny for consultation. My final recommendation will be communicated back to the requesting physician by way of shared medical record or letter. The patient has the following: ACTIVE PROBLEM LIST Chronic Lymphocytic Thyroiditis Dysmetabolic Syndrome X Hx of DIABETES IN PREG-UNSPEC MALAISE AND FATIGUE NEC Obesity, Unspecified Flushing Type 2 Diabetes Mellitus Without Complication, Without Long-Term Current Use of Insulin (Hcc) Micropapillary carcinoma of thyroid (3 mm) Talia (Obstructive Sleep Apnea) GI Bleeding Secondary Osteoarthritis of Multiple Sites Vitamin B12 Deficiency (Dietary) Anemia Rheumatoid Arthritis of Multiple Sites Without Rheumatoid Factor (Hcc) Positive Anti-Ccp Test Nausea and Vomiting in Adult Morbid Obesity (Hcc) Pneumonia Postoperative Malabsorption Diarrhea, Unspecified Vomiting of Fecal Matter With Nausea Type 2 Diabetes Mellitus Without Retinopathy (Hcc) Fibromyalgia Mitral and Aortic Valve Regurgitation Esophageal Reflux Anemia Obesity, Class I, Bmi 30-34.9 Iron Deficiency Anemia Glaucoma Suspect of Both Eyes Dermatochalasis of Both Upper Eyelids Conjunctivitis Dry Eye Syndrome of Bilateral Lacrimal Glands History of Cervical Dysplasia Postmenopausal Bleeding Ovarian Cyst, Complex Abnormal Endometrial Ultrasound Thickened Endometrium Ovarian Cyst, Left Subjective CHIEF COMPLAINT: PMB HPI: Patient is a 47 year old female presenting to pre-anesthesia consultation. Patient has PMB since beginning of September 2022 that lasted one week. states she had no periods for 2 years. denies vaginal discharge or pain. Recommended for above surgery. 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 Mitral and aortic valve regurgitation 09/08/2009 Aortic insufficiency EF 60% DR Zuniga -- judged to be non-surgical and mild Nephrolithiasis TALIA (obstructive sleep apnea) 2015 on CPAP and BiPAP Postoperative malabsorption 03/04/2017 Rheumatoid arthritis (HCC) was treated with mtx plaquenil in past Thyroiditis, unspecified Thyroiditis Viral pneumonia, unspecified Pneumonia Vomiting of fecal matter PAST SURGICAL HISTORY Procedure Laterality Date ANES HRNA REPAIR UPR ABD TABDL RPR DIPHRG HRNA open 2001 COLONOSCOPY FLX DX W/COLLJ SPEC WHEN PFRMD Colonoscopy COLPO OF CERVIX WBIOPSYECC 04/04/2018 ESOPHAGOGASTRODUODENOSCOPY TRANSORAL DIAGNOSTIC EGD multiple GASTRIC BYPASS HX 2017 LAPAROSCOPY SURG CHOLECYSTECTOMY Cholecystectomy, lap LIG/TRNSXJ FLP TUBE ABDL/VAG APPR UNI/BI 1996 PAST SURGICAL HISTORY OF cardiac cath REPAIR PARAESOPHAGEAL HERNIA THYROIDECTOMY TOTAL/COMPLETE 02-04-2010 ? patial/incomplete FAMILY HISTORY Problem Relation Age of Onset Thyroid Mother graves' s/p I 131 Glaucoma Mother Heart Father Thyroid Sister goiter. None Sister Garcia's palsy. Diabetes Maternal Grandmother Diabetes Maternal Grandfather SOCIAL HISTORY: Social History Tobacco Use Smoking status: Never Smokeless tobacco: Never Vaping Use Vaping Use: Never used Substance Use Topics Alcohol use: Not Currently Comment: Social Drug use: No MEDICATIONS: Prior to Admission medications as of 10/06/22 1419 Medication Sig Last Dose Taking zaleplon (SONATA) 10 mg capsule Take 10 mg by mouth daily at bedtime. Pt takes 10mg qhs Taking Yes dulaglutide (TRULICITY) 0.75 mg/0.5 mL pen injector Inject 0.75 mg subcutaneously one time a week. Taking Yes acarbose (PRECOSE) 50 mg tablet Take 1 tablet by mouth three times daily. Taking Yes Blood-Glucose Sensor (Rayspan NBA 3 SENSOR) vinny Use to check glucose 4 times or more daily. Change sensor every 14 days. Taking Yes blood sugar diagnostic (TRUE METRIX GLUCOSE TEST STRIP) test strip Use as instructed to check glucose 4 x daily or more as needed. Taking Yes tretinoin (RETIN-A) 0.025 % topical cream Apply to affected area daily at bedtime. Taking Yes cholecalciferol (VITAMIN D-3) 5,000 unit tab 2 tabs po q am for 90 days Patient taking differently: 50,000 Units. 1 tab per week Taking Yes diclofenac (VOLTAREN ARTHRITIS PAIN) 1 % topical gel Apply 4 g to affected area four times daily. Taking Yes CPAP/BIPAP/OTHER Type .CPAPSettings into a note to see current settings/supplies/DME information. Taking Yes ALPRAZolam (XANAX) 0.25 mg tablet Take 0.5 tablets by mouth as needed. Taking Yes meclizine (ANTIVERT) 25 mg tab Take 0.5-1 tablets by mouth three times daily as needed (for dizziness.). Taking Yes BIPAP Lifetime supplies for BiPAP 12/8 cm H20 including mask, heated tubing, humidity, filters. Dx:G47.33 Taking Yes promethazine (PHENERGAN) 25 mg tablet Take 25 mg by mouth four times daily as needed. Taking Yes cyanocobalamin 1,000 mcg/mL inject 1 milliliter intramuscularly ONCE A MONTH as instructed Taking Yes pantoprazole DR (PROTONIX) 40 mg tablet Take 1 tablet by mouth as needed. Taking Yes Syringe with Needle, Safety (EASY TOUCH SHEATHLOCK SYRG-NDL) 3 mL 25 gauge x 1 syrg Weekly methotrexate injections, monthly vit b12 injections as instructed Taking Yes glucagon (BAQSIMI) 3 mg/actuation nasal spray Use 1 [place] in the nose as needed for low blood sugar. May repeat after 15 minutes using a new device if there is no response. Patient not taking: Reported on 10/06/2022 Not Taking Medication Comments documented by Jaime Malone on 08/15/2020 at 1359. Would like refill of promethazine as of 08/15/2020 CURRENT ALLERGIES: ALLERGIES Allergen Reactions Contrast Dye [Iodin* Other: See Comments Mobic [Meloxicam] Intolerance GI bleed with transfusion Motrin [Ibuprofen] Other: See Comments GI Bleed Nsaids (Non-Steroid* Unknown Prednisone Contraindication-Medical Surgical GI bleed Scopolamine Mental Status Change Paranoia, confusion, hallucination Covid Immunization Dates Overdue - COVID-19 VACCINE (1) Overdue - never done No completion, postpone, frequency change, or communication history exists for this topic. REVIEW OF SYSTEMS: positive findings are BOLD PAIN ASSESSMENT: General: Obesity Body mass index is 40.14 kg/m . No weight loss, malaise or fevers. Neuro: No history of TIA's, stroke, MEDICAL PSYCHOTHERAPIST tumor, impaired sensorium, hemiplegia, paraplegia or quadraplegia. No neurological symptoms or problems. Respiratory: TALIA Negative for Asthma, Bronchitis, COPD, Pneumonia within 6 weeks (date), URI < 2weeks Negative for cough, wheezing or shortness of breath. Negative for hemoptysis. Cardiovascular: palpitations/PVC evaluated by Luis F Barraza, AERIAL SURVEY TECHNICIAN.DRILL PRESS HAND improved with TALIA treatment however worsened since 06/2022 Negative for Recent UT, CAD, CHF Negative for chest pain, orthopnea,PND, dizziness, lightheadedness or syncope. Negative for heart murmur. Negative for h/o DVT/PE. Negative for LE edema. GI: s/p gastric bypass and hx of esophogeal stricture Negative for Abdominal pain, Difficulty swallowing, Liver disease, ETOH > 2 drinks / day : No history of dysuria, frequency or incontinence,, stones or chronic kidney disease INTERNET DATABASE SPECIALIST: See HPI : Denies, Patient's last menstrual period was 09/13/2022 (approximate). Endocrine: DM last A1C 6.2 as of 06/16/2022 taking rx. Negative for polyuria, polydipsia, heat or cold intolerance. Negative for goiter. Denies thyroid disease. Denies DM. Hematology: No history of bleeding or clotting disorder. Pt is not taking anti- coagulation or platelet medications. No history of hematological symptoms or problems. Oncology: Thyroid CA? s/p resection No history of CA metastasis, chemo within 30 days, or radiotherapy within 90 days. Has not lost 10% of body wt in 6 months. No history of oncological symptoms or problems. Psych: Anxiety, Depression Musculoskeletal: Joint pain Skin: Negative for lesions, rash and itching. Objective PHYSICAL EXAM: VITALS: BP 114/78 Pulse 68 Temp (Src) 97.9 (Oral) Resp 16 Ht 5' 2.5 (1.59m) Wt 223 lb (101.2kg) SpO2 100% LMP 09/13/2022 BMI 40.11 kg/(m^2). General: Alert and oriented, No acute distress, Obese Skin: Normal color, no rash, no lesions. HEENT: EOM, pupils equal, round and reactive. Cardiovascular: Normal S1 & S2, no rubs, murmurs or gallops. No JVD. Pulse regular. Lungs: Normal breath sounds, no wheezes or crackles. Abdomen: Soft, non-tender, no rigidity. Extremities: No deformity, no edema or tenderness, no joint swelling or clubbing. Neurological: Normal cognition and motor skills. Pulses: Carotid and radial pulses normal +2. Diagnostic tests reviewed for today's visit: Lab Value Units Date High Low HB 13.4 g/dL 06/16/2022 15.5 11.5 HCT 43.2 % 06/16/2022 46.0 36.0 WBC 7.72 k/uL 06/16/2022 11.00 3.70 PLT 217 k/uL 06/16/2022 400 150 NA 140 mmol/L 06/16/2022 144 136 K 3.9 mmol/L 06/16/2022 5.1 3.7 GLUC 96 mg/dL 06/16/2022 99 74 BUN 7 mg/dL 06/16/2022 21 7 CREAT 0.95 mg/dL 06/16/2022 0.96 0.58 PTSEC No results within date range. INR No results within date range. APTT No results within date range. ALT 42 U/L 06/16/2022 38 7 AST 27 U/L 06/16/2022 35 13 TBILI 0.5 mg/dL 06/16/2022 1.3 0.2 TSH 2.690 mIU/L 06/16/2022 4.200 0.270 Hemoglobin A1C (%) Date Value 06/16/2022 6.2 01/21/2022 6.3 03/17/2021 6.0 12/27/2020 6.2 08/13/2020 6.1 05/13/2020 6.4 10/03/2019 6.2 Most recent EKG Recent Results (from the past 8760 hour(s)) ECG COMPLETE Collection Time: 06/16/22 3:32 PM Result Value Ventricular Rate 81 Atrial Rate 81 P-R Interval 118 QRS Duration 90 QT Interval 404 QTC Calculation (Bazett) 469 Calculated P [place] 3 Calculated R [place] -51 Calculated T [place] 70 Impression NORMAL SINUS RHYTHM LEFT ANTERIOR FASCICULAR BLOCK ABNORMAL ECG Confirmed by NATHAN MARIE M.D. ([id number]) on 06/17/2022 10:48:37 AM Most recent Echo 07/2020 Most recent event monitor 07/2020 Assessment/Plan 1. Pre-op examination surgery scheduled for 10/23/2022 - NT PRO BNP; Future - BASIC METABOLIC PNL; Future - CBC + DIFF; Future 2. Morbid obesity (HCC) Body mass index is 40.14 kg/m . s/p gastric bypass and has esophogeal strictures 3. TALIA (obstructive sleep apnea) partial compliance. face mask does not fit well and she takes it off in the middle every night 4. Type 2 diabetes mellitus without complication, without long-term current use of insulin ([facility]) Reports compliant with medication . Patient admits they do not check fasting glucose. Continue medications. Repeat blood work ordered today Encouraged lifestyle modifications. Hemoglobin A1C (%) Date Value 06/16/2022 6.2 01/21/2022 6.3 03/17/2021 6.0 12/27/2020 6.2 08/13/2020 6.1 05/13/2020 6.4 10/03/2019 6.2 5. Palpitations patient feels it could be from many reasons Hx PVC was on Metoprolol (Toprolol XL) which helped in her past. she has increased palpations since 06/2022 only at night time TALIA - ill fitting mask Endocrine - ordered TSH, Vit D and Cortisol 09/30/2022 Cardiology - KRISTIN 06/16/2022 a/p below PLAN AND RECOMMENDATIONS: Palpitations: Patient has had a sensation of palpitations for several years. Previous heart monitors including a 14-day ZIO monitor has shown runs of nonsustained SVT but no malignant dysrhythmias. She reports a worsening of the palpitations and is currently wearing a Preventice monitor placed by her primary care provider. I will await the results. She currently is taking no medications such as beta-blockers or calcium channel blockers. In the past, she felt that the metoprolol succinate had helped her and decrease the palpitations. Likely, this medication will need to be restarted but I willawait the monitor results. ECG today shows normal sinus rhythm with a heart rate of 81 bpm. Echocardiogram reviewed and shows normal LVEF and mild [id number] valve regurgitation without evidence of significant structural heart disease. Continue to treat sleep apnea. Patient notes a worsening of bilateral extremity edema and a 14 pound weight gain in 1 week. Today,she has no edema, lungs are clear to auscultation Obesity noted, patient should use exercise as tolerated and a heart healthy diet. Will follow up with patient in 6 months or sooner if problems persist or worsen Luis F Barraza RN, MSN, URBAN REDEVELOPMENT SPECIALIST-C METS: Take care of self; that is eating, dressing, bathing, using the toilet (2.75 METs) Walk a block or two on level ground (2.75 METs) Patient denies any chest pain or undue shortness of breath with the above physical activity. ANESTHESIA FINDINGS: Intubation History: No history of difficult intubation Significant Anesthesia Considerations: patient has woke up during EGD and COLONOSCOPY. takes increased amount of medications to be put to sleep Airway Exam: General: Morbid obesity Body mass index is 40.14 kg/m . Mallampati Score is CLASS II ULBT: Class II - Lower incisors can bite the upper lip below the liz line Neck: Normal appearance and function, Distance from hyoid to mentum during neck extension is at least 3 finger breaths, short/thick neck Mouth: Large tongue size and Mouth opening greater than 2 finger breaths Dentition: Partial upper Airway History: No history of difficult intubation most recent airway history - 11/2016, gastric sleeve surgery Sleep Apnea Probability Snores loudly: Yes Tired, fatigued or sleepy in daytime: Yes Stops breathing or choking/gasping during sleep: Yes High blood pressure: No Sleep Apnea Probability Score 09/30/2022 Sleep Apnea Screen V2 38 (Sleep study not recommended) PLAN This patient is optimally prepared for surgery pending LABS Cardiac Optimization Email sent to surgeon regarding surgical location - anesthesia review will be sent once locations has been changed Telephone Encounter sent to Cardiology/Endocrinology, regarding increased in palpations. CONSULTS: The following consults have been initiated at this time: Cardiology regarding increased palpations The Following Tests/Procedures Have Been Initiated: EKG not indicated per [facility] protocol Orders placed by PCP - TSH, cortisol and Vit D. In [facility] 09/30/2022. I recommended to be completed wili Orders placed today -CBC+DIFF, BMP, and BNP I recommended to be completed wili Planned Anesthetic: Per anesthesia choice Instructions Given to Patient: Instructions located in the after visit summary. Patient given verbal and written preop instructions and voices comprehension and compliance. SIGNATURE: Norm Hanna PA-C PATIENT NAME: Esme Morfin DATE: 10/06/2022 TIME: 2:07 PM [facility]28[facility]23 Instructions* Patient Instructions* Norm Hanna PA-C - 10/05/2022 3:11 PM EDT PATIENT PREOPERATIVE INSTRUCTIONS Eleanor Kenny DO has scheduled you for your procedure at this surgery center: [facility]: [phone] --[address] [place] [address]. [facility]: [phone] --[address] [address]. Please check in on the1st floor at registration desk 6. Arrival Time for Surgery: - The Surgery Center or hospital where you are having surgery will call the afternoon before surgery (or Wednesday for Wednesday surgery) with a scheduled arrival time. - If you have not heard by 4 pm, please contact the surgery center above. Please be aware that emergency situations arise, which may delay or change your surgical time. If this happens, we will notify you as soon as possible and regret any inconvenience. Please read below carefully for your personalized instructions. Dietary Restrictions: - No solid food after midnight. - You may have 12 ounces of clear liquids (water, clear juices such as apple juice or gatorade, carbonated beverages, clear tea, black coffee, jello) until 2 hours before scheduled arrival at facility. - Do not drink any alcohol after midnight the night before your surgery. - No Milk/Dairy - No Pulp Juices Medications: Unless instructed differently below, stay on all of your medications until your surgery. Approved medications to take the morning of surgery with a sip of water: Alprazolam (Xanax) Is Patient Diabetic:Yes Preoperative Instructions for Patient's with Diabetes Mellitus Diabetic Medication Instructions:Please take the following meds at your usual dose the day before surgery. please HOLD 1 WEEK PRIOR TO SURGERY: Dulaglutide (Trulicity) If you start any new medications after today's visit, please contact the surgeon's office. Blood Thinning Medications: - Stop NSAIDS (Ibuprofen, Advil, Aleve, Motrin, Celebrex, Mobic, etc.) 7 days before surgery, as directed by your surgeon. - Stop Aspirin 7 days before surgery, as directed by your surgeon. - Stop Vitamin E, ALL multi-vitamins, herbals and dietary supplements 14 days before surgery. - You may take Tylenol (Acetaminophen) or any of your pain medications that do not contain aspirin or NSAIDS as needed. Important Reminders: - Candy, mints, and tobacco products are NOT permitted the morning of surgery. - Hearing aids, dentures and glasses may be worn the morning of surgery. - NO jewelry, body piercings, makeup, hairpins or contacts are to be worn the day of surgery. If you develop symptoms such as a fever, cold, or flu, or have other changes to your health within TWO DAYS of scheduled surgery or the morning of surgery, please contact the surgery center above. Personal Belongings: -Please have photo ID and insurance cards. -If you do not have a copy of advance directives on file with us, please bring a copy with you on the day of surgery. - Leave ALL valuables and money at home or with family members. For Outpatient Procedures: - YOU MUST HAVE A RESPONSIBLE LEAK PATCHER TAKE YOU HOME. A COIL INSPECTOR OR CUPOLA LINER HELPER CANNOT BE MADE A RESPONSIBLE LEAK PATCHER. - We recommend that a responsible person stays with you overnight to take care of you. - You cannot stay in a hotel alone after outpatient surgery. You will not be permitted to have yoursurgery, if you do not have someone to take care of you. If you already have an Advance Directive, please fax a copy to [phone] or email to for it to be added to your chart. If you do not have an Advance Directive, you can find the appropriate form and more information at [email or web address]. We recommend that youcomplete the Advance Directive form found on the website and bring it with you the day of your surgery. It can be witnessed and scanned into your chart that day. Norm Hanna PA-C documented in this encounterT[facility]08-25-2023 NoteHNO ID: [id number] Author: Eleanor Kenny, DO Service: ? Author Type: Physician Type: Progress Notes Filed: 10/02/2022 2:35 PM Note Text: CC: PMB Follow Up: Esme Morfin 47 year old here for follow up OV for postmenopausal bleeding. Reports no menses in 2 years, postmenopausal, in 08/2022 had VB for 7 days with clots and cramping, bright red. No HRT. 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 Mitral and aortic valve regurgitation 09/08/2009 Aortic insufficiency EF 60% DR Zuniga -- judged to be non-surgical and mild Nephrolithiasis TALIA (obstructive sleep apnea) 2015 on CPAP and BiPAP Postoperative malabsorption 03/04/2017 Rheumatoid arthritis (HCC) was treated with mtx plaquenil in past Thyroiditis, unspecified Thyroiditis Viral pneumonia, unspecified Pneumonia Vomiting of fecal matter PAST SURGICAL HISTORY Procedure Laterality Date ANES HRNA REPAIR UPR ABD TABDL RPR DIPHRG HRNA open 2001 COLONOSCOPY FLX DX W/COLLJ SPEC WHEN PFRMD Colonoscopy COLPO OF CERVIX WBIOPSYECC 04/04/2018 ESOPHAGOGASTRODUODENOSCOPY TRANSORAL DIAGNOSTIC EGD multiple GASTRIC BYPASS HX 2017 LAPAROSCOPY SURG CHOLECYSTECTOMY Cholecystectomy, lap LIG/TRNSXJ FLP TUBE ABDL/VAG APPR UNI/BI 1996 PAST SURGICAL HISTORY OF cardiac cath REPAIR PARAESOPHAGEAL HERNIA THYROIDECTOMY TOTAL/COMPLETE 02-04-2010 ? patial/incomplete Review of Systems: INTERNET DATABASE SPECIALIST: SEE HPI The remainder of the review of systems is negative. Exam: BP 110/72 Pulse 74 Wt 220 lb (99.8 kg) LMP (LMP Unknown) BMI 41.57 kg/m? General: a/o x 3, NAD. Abdomen: normal, BS, soft, NT, ND,Body mass index is 41.57 kg/m?. Indication Evaluation of abnormal uterine bleeding: postmenopausal bleeding Impression The uterus is retroverted and measures 71 mm x 37 mm x 49 mm. The endometrial thickness is 6.8 mm. The right ovary measures 22 mm x 17 mm x 14 mm. There is a 1.5cm complex appearing cyst. It has some internal debris and an echogenic focus. The left ovary measures 22 mm x 19 mm x 16 mm. Physiological in appearance. There is no free fluid visualized. Recommendations Clinically correlate. Endometrial lining as above. O-RADS 2 ovarian lesion, non-simple cyst, likely benign. Follow up ultrasound is recommended in 8-12 weeks. Menstrual History Cycle: menopausal Method Transabdominal, transvaginal, 3D ultrasound examination, Color Doppler examination Uterus Uterus: Visualized Uterus position: retroverted Description of uterine malformations: normally shaped Myometrium: normal Endometrium: thickened Cervix details: normal Uterus long 71 mm Uterus ap 37 mm Uterus tr 49 mm Uterus Vol 66.2 cm? Endometrial thickness, total 6.8 mm Right Ovary Rt ovary: Visualized Outline: smooth Rt ovary D1 22 mm Rt ovary D2 17 mm Rt ovary D3 14 mm Rt ovary Vol 2.9 cm? Rt ovarian cyst(s): Cysts identified Rt ovarian cyst D1 13 mm Rt ovarian cyst D2 10 mm Rt ovarian cyst D3 11 mm Rt ovarian cyst mean 11.3 mm Rt ovarian cyst vol 0.749 cm? Rt ovarian cyst findings: Unilocular non-simple cyst (internal debris and/or incomplete septation) with smooth inner wall, echogenic foci Left Ovary Lt ovary: Visualized Outline: smooth Lt ovary morphology: normal Lt ovary D1 22 mm Lt ovary D2 19 mm Lt ovary D3 16 mm Lt ovary Vol 3.6 cm? Cul de Sac Visualized. no free fluid visualized Performed By: Jocelyne Han RDMS Read By: Janene Harrison M.D. ASSESSMENT/PROBLEM LIST/PLANS: 47 year old WF here for PMB Follow Up: 1.) US as copied above reviewed in detail with Esme, discussed endometrial biopsy as an initial test for women with abnormal uterine bleeding due to its high sensitivity, low complication rate, and low cost. Endometrial biopsy is a more cost-effective initial approach than ultrasound when the prevalence of endometrial carcinoma is at least 15 percent. Endometrial biopsy is required for histological diagnosis if the endometrium is not adequately visualized, the stripe is ?4 mm (focal or global), and in women with persistent bleeding. Blind biopsy is most accurate in women with a globally thickened endometrium; visually directed sampling (ie, hysteroscopy) is preferable for women with focal abnormalities. TVUS is an acceptable alternative initial test in postmenopausal women who cannot tolerate office biopsy, or in women who need concurrent evaluation of the adnexae. A summary of the literature suggests that using an endometrial cutoff of <4 mm would yield a false nega (more content not included)...[facility]08-[facility] History of Present illness Narrative* Eleanor Kenny, DO - 10/02/2022 2:05 PM EDT CC: PMB Follow Up: Esme Morfin 47 year old here for follow up OV for postmenopausal bleeding. Reports no menses in 2 years, postmenopausal, in 08/2022 had VB for 7 days with clots and cramping, bright red. No HRT. 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 Mitral and aortic valve regurgitation 09/08/2009 Aortic insufficiency EF 60% DR Zuniga -- judged to be non-surgical and mild Nephrolithiasis TALIA (obstructive sleep apnea) 2015 on CPAP and BiPAP Postoperative malabsorption 03/04/2017 Rheumatoid arthritis (HCC) was treated with mtx plaquenil in past Thyroiditis, unspecified Thyroiditis Viral pneumonia, unspecified Pneumonia Vomiting of fecal matter PAST SURGICAL HISTORY Procedure Laterality Date ANES HRNA REPAIR UPR ABD TABDL RPR DIPHRG HRNA open 2001 COLONOSCOPY FLX DX W/COLLJ SPEC WHEN PFRMD Colonoscopy COLPO OF CERVIX WBIOPSYECC 04/04/2018 ESOPHAGOGASTRODUODENOSCOPY TRANSORAL DIAGNOSTIC EGD multiple GASTRIC BYPASS HX 2017 LAPAROSCOPY SURG CHOLECYSTECTOMY -2010 Cholecystectomy, lap LIG/TRNSXJ FLP TUBE ABDL/VAG APPR UNI/BI 1996 PAST SURGICAL HISTORY OF cardiac cath REPAIR PARAESOPHAGEAL HERNIA THYROIDECTOMY TOTAL/COMPLETE 02-04-2010 ? patial/incomplete Review of Systems: INTERNET DATABASE SPECIALIST: SEE HPI The remainder of the review of systems is negative. Exam: BP 110/72 Pulse 74 Wt 220 lb (99.8 kg) LMP (LMP Unknown) BMI 41.57 kg/m General: a/o x 3, NAD. Abdomen: normal, BS, soft, NT, ND,Body mass index is 41.57 kg/m . Indication Evaluation of abnormal uterine bleeding: postmenopausal bleeding Impression The uterus is retroverted and measures 71 mm x 37 mm x 49 mm. The endometrial thickness is 6.8 mm. The right ovary measures 22 mm x 17 mm x 14 mm. There is a 1.5cm complex appearing cyst. It has some internal debris and an echogenic focus. The left ovary measures 22 mm x 19 mm x 16 mm. Physiological in appearance. There is no free fluid visualized. Recommendations Clinically correlate. Endometrial lining as above. O-RADS 2 ovarian lesion, non-simple cyst, likely benign. Follow up ultrasound is recommended in 8-12 weeks. Menstrual History Cycle: menopausal Method Transabdominal, transvaginal, 3D ultrasound examination, Color Doppler examination Uterus Uterus: Visualized Uterus position: retroverted Description of uterine malformations: normally shaped Myometrium: normal Endometrium: thickened Cervix details: normal Uterus long 71 mm Uterus ap 37 mm Uterus tr 49 mm Uterus Vol 66.2 cm Endometrial thickness, total 6.8 mm Right Ovary Rt ovary: Visualized Outline: smooth Rt ovary D1 22 mm Rt ovary D2 17 mm Rt ovary D3 14 mm Rt ovary Vol 2.9 cm Rt ovarian cyst(s): Cysts identified Rt ovarian cyst D1 13 mm Rt ovarian cyst D2 10 mm Rt ovarian cyst D3 11 mm Rt ovarian cyst mean 11.3 mm Rt ovarian cyst vol 0.749 cm Rt ovarian cyst findings: Unilocular non-simple cyst (internal debris and/or incomplete septation) with smooth inner wall, echogenic foci Left Ovary Lt ovary: Visualized Outline: smooth Lt ovary morphology: normal Lt ovary D1 22 mm Lt ovary D2 19 mm Lt ovary D3 16 mm Lt ovary Vol 3.6 cm Cul de Sac Visualized. no free fluid visualized Performed By: Jocelyne Han RDMS Read By: Janene Harrison M.D. ASSESSMENT/PROBLEM LIST/PLANS: 47 year old WF here for PMB Follow Up: 1.) US as copied above reviewed in detail with Esme, discussed endometrial biopsy as an initial test for women with abnormal uterine bleeding due to its high sensitivity, low complication rate, andlow cost. Endometrial biopsy is a more cost-effective initial approach than ultrasound when the prevalence of endometrial carcinoma is at least 15 percent. Endometrial biopsy is required for histological diagnosis if the endometrium is not adequately visualized, the stripe is ?4 mm (focal or global), and in women with persistent bleeding. Blind biopsy is most accurate in women with a globally thickened endometrium; visually directed sampling (ie, hysteroscopy) is preferable for women with focal abnormalities. TVUS is an acceptable alternative initial test in postmenopausal women who cannot tolerate office biopsy, or in women who need concurrent evaluation of the adnexae. A summary of the literature suggests that using an endometrial cutoff of <4 mm would yield a false negative rate forendometrial cancer of 0.25 to 0.5 percent, which compares favorably with the false negative rate reported for endometrial biopsy. R/B/I/P for Endometrial Biopsy discussed in detail with patient, [facility] at [facility] on Wednesday10/23/2022, informed consent signed, surg request completed and sent, PAT to be scheduled, RTO 2 weeks follow up. As to left 1.5 cm ovarian cyst (O-RADS 2), will repeat US 12 weeks, to call once results reviewed, if indicated will schedule follow up OV. 2.) mammogram still not scheduled, order in [facility] since 06/2022, will schedule at end of OV today. 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 October 02, 2022 2:34 PM Eleanor Kenny DO documented in this encounterT[facility]08-23-2023 NoteHNO ID: [id number] Author: Lizzie Leavitt MD Service: ? Author Type: Physician Type: Progress Notes Filed: 09/30/2022 12:39 PM Note Text: I have communicated my name and active licensure. The patient's identity and physical location were verified at the time of this visit. Either the patient or their legal new accounts banking representative has been informed of the risks and benefits of -- and alternatives to -- treatment through a remote evaluation and consents to proceed with the evaluation remotely. 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 Took Trulicity 0.75mg for a month in July, however she recently started having period bleeding and is getting that worked up. Had a little nausea but nothing major when on Trulicity, notes that hypoglycemia improved a little bit. Also she stopped wearing Nba because it was disturbing her sleep too much by alarming too much. Only checks BG when she feels off, BG can be 280-300 after eating, then after a couple hours can be 60-70s. Not having hypoglycemia overnight. Still <55 about 2-3 times a week, can be dizzy and sweaty but also dealing with vertigo and anxiety, does feel better after eating. Trying to limit carbs and eat more protein/fiber/healthy fats, eating a lot of PB. Taking acarbose but only before eating. Thyroid - No neck pain/swelling but a little scratchy. Vitamin D - takes Vitamin D 50,000u once weekly. All other Review of Systems reviewed and are negative. No outpatient medications have been marked as taking for the 09/30/22 encounter (Appointment) with Lizzie Leavitt MD. 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 None Sister Garcia's palsy. Diabetes Maternal Grandmother Diabetes Maternal Grandfather Social History Tobacco Use Smoking status: Never Smokeless tobacco: Never Vaping Use Vaping Use: Never used Substance Use Topics Alcohol use: Not Currently Comment: Social Drug use: No PE: LMP 04/06/2022 (Within Days) Last 3 Encounter Wt Readings: Date: Wt: 06/23/2022 102.1 kg (225 lb) 06/16/2022 102.9 kg (226 lb 14.4 oz) 06/11/2022 96.2 kg (212 lb) Gen - NAD, comfortable, pleasant Eyes - No exophthalmos, No rafi-orbital edema Neck - No visible goiter or nodules Skin - No visible skin dryness, no thinning or loss of lateral eyebrow hair Neuro - No visible hand tremor, alert/oriented and answering questions appropriately Component Latest Ref Rng AND Units 03/17/2021 04/15/2021 01/21/2022 06/16/2022 Protein, Total 6.3 - 8.0 g/dL 6.8 Albumin 3.9 - 4.9 g/dL 4.2 4.3 4.2 Calcium 8.5 - 10.2 mg/dL 8.8 9.2 9.3 Bilirubin, Total 0.2 - 1.3 mg/dL 0.5 Alkaline Phosphatase 34 - 123 U/L 109 AST 13 - 35 U/L 27 ALT 7 - 38 U/L 42 (H) Glucose 74 - 99 mg/dL 134 (H) 230 (H) 96 BUN 7 - 21 mg/dL 11 10 7 Creatinine 0.58 - 0.96 mg/dL 0.88 0.86 0.95 Sodium 136 - 144 mmol/L 134 (L) 137 140 Potassium 3.7 - 5.1 mmol/L 3.9 4.5 3.9 Chloride 97 - 105 mmol/L 100 102 105 CO2 22 - 30 mmol/L 25 23 24 Anion Gap 9 - 18 mmol/L 9 12 11 eGFR >=60 mL/min/1.73mA? 83 74 Phosphorus 2.7 - 4.8 mg/dL 2.7 3.1 eGFR- >60 eGFR-All Other Races . >60 Hemoglobin A1C 4.3 - 5.6 % 6.0 (H) 6.3 (H) 6.2 (H) Estimated Average Glucose mg/dL 126 134 131 PTH, Intact 15 - 65 pg/mL 72 (H) 102 (H) 108 (H) Vitamin D 25 Hydroxy 31.0 - 80.0 ng/mL 25.6 (L) 28.6 (L) 31.0 TSH 0.270 - 4.200 mIU/L 2.550 3.390 2.690 Free T4 0.9 - 1.7 ng/dL 1.2 PTH Related Peptide 0.0 - 3.4 pmol/L <2.0 Insulin 3.0 - 25.0 mU/L 5.8 Magnesium 1.7 - 2.3 mg/dL 1.9 C-Peptide 0.81 - 3.85 ng/mL 2.20 T3 79 - 165 ng/dL 129 T4 5.5 - 10.2 ug/dL 6.7 Microsomal Antibody <5.6 IU/mL 216.6 (H) Thyroglobulin Ab, Serum <4.0 IU/mL 3.5 OSH Labs: 06/08 (more content not included)...[facility]08-23-[facility]23 History of Present illness Narrative* Lizzie Leavitt MD - 09/30/2022 11:06 AM EDT I have communicated my name and active licensure. The patient's identity and physical location wereverified at the time of this visit. Either the patient or their legal new accounts banking representative has been informed of the risks and benefits of -- and alternatives to -- treatment through a remote evaluation andconsents to proceed with the evaluation remotely. 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 Took Trulicity 0.75mg for a month in July, however she recently started having period bleeding and is getting that worked up. Had a little nausea but nothing major when on Trulicity, notes that hypoglycemia improved a little bit. Also she stopped wearing Nba because it was disturbing her sleep too much byalarming too much. Only checks BG when she feels off, BG can be 280- 300 after eating, then after a couple hours can be 60-70s. Not having hypoglycemia overnight. Still <55 about 2-3 times a week, can be dizzy and sweaty but also dealing with vertigo and anxiety, does feel better after eating. Trying to limit carbs and eat more protein/fiber/healthy fats, eating a lot of PB. Taking acarbose butonly before eating. Thyroid - No neck pain/swelling but a little scratchy. Vitamin D - takes Vitamin D 50,000u once weekly. All other Review of Systems reviewed and are negative. No outpatient medications have been marked as taking for the 09/30/22 encounter (Appointment) with Lizzie Leavitt MD. 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 None Sister Garcia's palsy. Diabetes Maternal Grandmother Diabetes Maternal Grandfather Social History Tobacco Use Smoking status: Never Smokeless tobacco: Never Vaping Use Vaping Use: Never used Substance Use Topics Alcohol use: Not Currently Comment: Social Drug use: No PE: LMP 04/06/2022 (Within Days) Last 3 Encounter Wt Readings: Date: Wt: 06/23/2022 102.1 kg (225 lb) 06/16/2022 102.9 kg (226 lb 14.4 oz) 06/11/2022 96.2 kg (212 lb) Gen - NAD, comfortable, pleasant Eyes - No exophthalmos, No rafi-orbital edema Neck - No visible goiter or nodules Skin - No visible skin dryness, no thinning or loss of lateral eyebrow hair Neuro - No visible hand tremor, alert/oriented and answering questions appropriately Component Latest Ref Rng & Units 03/17/2021 04/15/2021 01/21/2022 06/16/2022 Protein, Total 6.3 - 8.0 g/dL 6.8 Albumin 3.9 - 4.9 g/dL 4.2 4.3 4.2 Calcium 8.5 - 10.2 mg/dL 8.8 9.2 9.3 Bilirubin, Total 0.2 - 1.3 mg/dL 0.5 Alkaline Phosphatase 34 - 123 U/L 109 AST 13 - 35 U/L 27 ALT 7 - 38 U/L 42 (H) Glucose 74 - 99 mg/dL 134 (H) 230 (H) 96 BUN 7 - 21 mg/dL 11 10 7 Creatinine 0.58 - 0.96 mg/dL 0.88 0.86 0.95 Sodium 136 - 144 mmol/L 134 (L) 137 140 Potassium 3.7 - 5.1 mmol/L 3.9 4.5 3.9 Chloride 97 - 105 mmol/L 100 102 105 CO2 22 - 30 mmol/L 25 23 24 Anion Gap 9 - 18 mmol/L 9 12 11 eGFR >=60 mL/min/1.73m 83 74 Phosphorus 2.7 - 4.8 mg/dL 2.7 3.1 eGFR- >60 eGFR-All Other Races . >60 Hemoglobin A1C 4.3 - 5.6 % 6.0 (H) 6.3 (H) 6.2 (H) Estimated Average Glucose mg/dL 126 134 131 PTH, Intact 15 - 65 pg/mL 72 (H) 102 (H) 108 (H) Vitamin D 25 Hydroxy 31.0 - 80.0 ng/mL 25.6 (L) 28.6 (L) 31.0 TSH 0.270 - 4.200 mIU/L 2.550 3.390 2.690 Free T4 0.9 - 1.7 ng/dL 1.2 PTH Related Peptide 0.0 - 3.4 pmol/L <2.0 Insulin 3.0 - 25.0 mU/L 5.8 Magnesium 1.7 - 2.3 mg/dL 1.9 C-Peptide 0.81 - 3.85 ng/mL 2.20 T3 79 - 165 ng/dL 129 T4 5.5 - 10.2 ug/dL 6.7 Microsomal Antibody <5.6 IU/mL 216.6 (H) Thyroglobulin Ab, Serum <4.0 IU/mL 3.5 OSH Labs: 06/25/22 - Cortisol 6.7 US Thyroid 04/19/21: 8mm isoechoic right thyroid nodule noted US Neck 11/21/20: Right: * Level I:No lymph nodes * Level II:No lymph nodes * Level III:Small morphologically normal-appearing lymph nodes with normal fatty nayely. * Level IV:Small morphologically normal-appearing lymph nodes with normal fatty nayely * Level V:Small morphologically normal-appearing lymph nodes with normal fatty nayely Left: * Level I:Small morphologically normal-appearing lymph nodes with normal fatty nayely * Level II:Small morphologically normal-appearing lymph nodes with normal fatty nayely * Level III:Small morphologically normal-appearing lymph nodes with normal fatty nayely * Level IV:No lymph nodes * Level V:No lymph nodes Central compartment, Level /VII:No lymph nodes Thyroid: Residual 5.0 x 2.1 x 1.5 cm thyroid tissue in the right neck. Residual 1.9 x 1.1 x 0.6 cm thyroid tissue in the left thyroid bed. 0.6 x 0.6 x 0.3 cm hypoechoic nodule in the residual left thyroid tissue. US Thyroid 10/04/18: Right lobe - normal size, no nodules, 4.8 x 1.9 x 1.5cm Left lobe - smaller and less vascular than right, history of partial resection, 2.5 x 1.1 x 0.7cm Isthmus - surgically absent Conclusion - no suspicious findings US Thyroid 01/14/11: Findings: The right lobe measures 5.4 x 1.6 x 1.7 cm . It is heterogeneous in texture and hypervascular The left lobe measures 2.3 x 1.2 x 1.2 cm . Heterogeneous in texture and hypervascular. The isthmus is not visualized IMPRESSION: Large right lobe and small left lobe of the thyroid. Patient reportedly had a thyroidectomy. Clinical correlation needed. See discussion above Diagnoses and all orders for this visit: Hx of papillary thyroid carcinoma -had low-risk disease treated with partial thyroidectomy -check US neck to monitor previously seen lesions -check TSH to ensure euthyroid - TSH BLD; Future - US CERVICAL LYMPH NODE MAPPING; Future Vitamin D insufficiency -check level to monitor replacement - VITAMIN D 25 HYDROXY; Future Hypoglycemia -has post-prandial hypoglycemia following gastric bypass with improvement/control on low carb/high protein/fat/fiber diet, and further improvement while on GLP-1 agonist -resume Trulicity 0.75mg weekly -check 8am cortisol to ensure no adrenal insufficiency as last level was inconclusive - CORTISOL BLD; Future - dulaglutide (TRULICITY) 0.75 mg/0.5 mL pen injector; Inject 0.75 mg subcutaneously one time a week. Diabetes mellitus type 2 (HCC) -resume Trulicity as noted - dulaglutide (TRULICITY) 0.75 mg/0.5 mL pen injector; Inject 0.75 mg subcutaneously one time a week. F/u 1 year with me, 3 months with [employer]OP[employer]IST for DM/obesity The assessment and benefits/risks of the plan were discussed with the patient who expressed understanding and was agreeable to that which is noted above. All documentation from previous visit was copied and pasted, documentation has been reviewed and edited as necessary for today's visit. [facility]08-[facility]23 NoteHNO ID: [id number] Author: Eleanor Kenny, DO Service: ? Author Type: Physician Type: Progress Notes Filed: 09/29/2022 4:43 PM Note Text: patient NO SHOWED VV after requesting VV and not desiring an OV to address US results/management. 09/29/2022 4:42 PM Eleanor Kenny, DOCOhio[facility]23 History of Present illness Narrative* Eleanor Kenny DO - 09/29/2022 4:41 PM EDT patient NO SHOWED VV after requesting VV and not desiring an OV to address US results/management. 09/29/2022 4:42 PM Eleanor Kenny DO documented in this encounterToledo [facility]08-21-2023 NoteHNO ID: [id number] Author: Dimitrios Adair Service: ? Author Type: ? Type: Progress Notes Filed: 09/29/2022 12:46 PM Note Text: CMN RECEIVED BY [employer] VIA FAX, COMPLETED, AND PLACED IN PROVIDER MAILBOX FOR SIGNATURE Dimitrios Adair, Administration Assistance 09/28/22 DME COMPANY SENDING CMN: [facility] SIGNED AND DATED CMN, FAXED TO DME AND CONFIRMATION PAGE RECEIVED: 09/29/22 [facility]08-21-2023 History of Present illness Narrative* Dimitrios Adair - 09/28/2022 1:44 PM EDT CMN RECEIVED BY [employer] VIA FAX, COMPLETED, AND PLACED IN PROVIDER MAILBOX FOR SIGNATURE Dimitrios Adair, Administration Assistance 09/28/22 DME COMPANY SENDING CMN: [employer] SIGNED AND DATED CMN, FAXED TO DME & CONFIRMATION PAGE RECEIVED: 09/29/22 documented in this encounterToledo Hospital08-09-2023 Miscellaneous Notes* Telephone Encounter - Bella Douglass - 09/16/2022 1:55 PM EDT Attempted to reach patient by phone to reschedule follow up visit from US per provider request. Voicemail is full and unable to leave a message. My Chart message was sent requesting patient to call for new appt. documented in this encounterToledo [facility]08-04-2023 NoteHNO ID: [id number] Author: Janene Harrison MD Service: ? Author Type: Physician Type: Progress Notes Filed: 09/11/2022 1:56 PM Note Text: The patient presents for requested ultrasound. Full report available in the Imaging tab in [employer]. JONATHAN LunaOhioHealth [facility]08-04-2023 History of Present illness Narrative* Janene Harrison MD - 09/11/2022 1:55 PM EDT The patient presents for requested ultrasound. Full report available in the Imaging tab in Epic. Janene Harrison MD documented in this encounterToledo Hospital07-31-2023 Miscellaneous Notes* Telephone Encounter - Eleanor Kenny DO - 09/07/2022 8:16 PM EDT per 07/20/2022 patient called, has not scheduled/completed pelvic US ordered in 06/2022 reports has a lot going on, will call to schedule when desiring to proceed US is scheduled for 09/10 however review of epic shows is now scheduled with Dr. Mariaelena Carmichael on 09/09 for management. evaluation/management per Dr. Carmichael. documented in this encounterToledo Hospital06-12-2023 NoteHNO ID: [id number] Author: Eleanor Kenny DO Service: ? Author Type: Physician Type: Progress Notes Filed: 07/20/2022 9:25 AM Note Text: patient called, has not scheduled/completed pelvic US ordered in 06/2022 reports has a lot going on, will call to schedule when desiring to proceed.[facility]06-[facility] NoteHNO ID: [id number] Author: Bud Ca APRN.CNP Service: ? Author Type: Nurse Practitioner Type: Progress Notes Filed: 07/16/2022 4:38 PM Note Text: [facility] FOLLOW UP VISIT PATIENT NEW TO ME TODAY THIS IS A VIRTUAL VISIT I have communicated my name and active licensure. The patient's identity and physical location were verified at the time of this visit. Either the patient or their legal new accounts banking representative has been informed of the risks and benefits of -- and alternatives to -- treatment through a remote evaluation and consents to proceed with the evaluation remotely. History of Present Illness Some elements in the HPI were copied from previous endocrinology note and have been updated as appropriate today. KRISTIN with Bipin Nina, CHACHO on 06/23/2022 At previous visit ozempic 0.25 mg for glycemic control with glucose dependent insulin secretion, slowing gastric transit to reduce hypoglycemia, and aid further weight loss. UACR ordered. - We discussed the side effects (GI upset, N/V/D, AND abdominal bloating). They deny any personal history of pancreatitis or any personal or family history of medullary thyroid cancer or multiple endocrine neoplasia type 2. - 8 AM cortisol lab to screen for adrenal insufficiency - When treating a low, treat with a carb but then eat something with protein and fat in it right after. Discussed protein, fat, fiber foods to include more in diet with examples. - advised to check glucose finger stick at night if low - can consider protein/fat snack at bedtime to reduce incidence hypoglycemia at night. Could be from possible compression low of CGM considering she is not symptomatic. - discussed hypoglycemia and when to call 911 (unconscious, unable to treat self, seizing). Esme Morfin is a 47 year old female presents today for follow up of DM Type 2. Concerns/ Chief Complaint: Follow up - Post prandial glucose improved - having less high glucose - taking Acarbose 50 mg tid Date of Diagnosis: 2014 Last HbA1c: Hemoglobin A1C (%) Date Value 06/16/2022 6.2 01/21/2022 6.3 03/17/2021 6.0 12/27/2020 6.2 08/13/2020 6.1 05/13/2020 6.4 10/03/2019 6.2 Also known pertinent history of: gestational DM with 2nd , papillary thyroid cancer (follicular variant) s/p partial thyroidectomy 01/2010, gastric bypass 2018, TALIA, hyperparathyroidism. Personal history of pancreatitis no Personal or family history of MTC (medullary thyroid carcinoma) and Multiple Endocrine Neoplasia syndrome type 2 (MEN 2) no Complications Microvascular: Denies Macrovascular: Denies Statin Use: no MYNOR/ARB Use: no Obesity: No weight taken, BMI not calculated due to virtual visit Diabetic Foot and Retinal Eye Exam not Overdue Physical Activity: Modest physical activity Walking started up recently Diet: portion control, grazes throughout day Meals per day: 2 Snacks per day: grazing throughout day Doing ok with diet - drinking regular small dr pepper pop a few cans a day -Eating small meals SMBG: Nba 3 Reports variable 50-60s post meal 250-300 after taking NyQuil at night Hypoglycemia Frequency: post meals at times Hypoglycemia Awareness: yes Symptoms of Hyperglycemia including polyuria, polydipsia, rapid weight loss, blurred vision: no Prior DM Related Medications: - Current DM Related Medications: Taking differently than listed: Current Medications 07/16/2022 DIABETES THERAPIES Medication Dosage Pharm Subclass acarbose (PRECOSE) 50 mg tablet Take 1 tablet by mouth three times daily. Antihyperglycemic - Alpha-Glucosidase Inhibitors dulaglutide (TRULICITY) 0.75 mg/0.5 mL pen injector Inject 0.75 mg subcutaneously one time a week. Antihyperglycemic - Glucagon-Like Peptide-1 (GLP-1) Receptor Agonists OTHER Medication Dosage Pharm Subclass ALPRAZolam (XANAX) 0.25 mg tablet Take 0.5 tablets by mouth as needed. Antianxiety Agent - Benzodiazepines BIPAP Lifetime supplies for BiPAP 12/8 cm H20 including mask, heated tubing, humidity, filters. Dx: G47.33 Medical Supply, [employer] Superset blood sugar diagnostic (TRUE METRIX GLUCOSE TEST STRIP) test strip Use as instructed to check glucose 4 x daily or more as needed. Medical Supplies and DME - Blood Glucose Tests Blood-Glucose Sensor (FREESTYLE NBA 3 SENSOR) vinny Use to check glucose 4 times or more daily. Change sensor every 14 days. Medical Supplies and DME - Glucose Monitoring Test Supplies cholecalciferol (VITAMIN D-3) 5,000 unit tab 2 tabs po q am for 90 days Vitamins - D Derivatives CPAP/BIPAP/OTHER Type .CPAPSettings into a note to see current settings/supplies/DME information. Medical Supply, [employer] Superset cyanocobalamin 1,000 mcg/mL inject 1 milliliter intramuscularly ONCE A MONTH as instructed Vitamins - B-12, Cyanocobalamin and derivatives diclofenac (VOLTAREN ARTHRITIS PAIN) 1 % topical gel Apply 4 g to (more content not included)...[facility]06-05-2023 Miscellaneous Notes* Telephone Encounter - Cata Cerda RN - 07/13/2022 1:45 PM EDT Kickfire[employer] message sent documented in this encounterToledo Hospital05-31-2023 Miscellaneous Notes* Telephone Encounter - Bipin Nina APRN.CNP - 07/08/2022 5:01 PM EDT Images from the original note were not included. Bipin Nina APRN.DRILL PRESS HAND documented in this encounterToledo Hospital05-28-2023 Miscellaneous Notes* Telephone Encounter - Dannie Callaway V, MD - 07/05/2022 10:44 AM EDT Paged by holiday detector operator Patient having diarrhea and low BG Since midnight patient has had two to three episodes of diarrhea---firs tone happened in sleep and she did not realize until she woke up Has a CGM BG 50-60 When she eats goes upt o 300s and then drops quickly Feels duhydrated H/o gastric by[pass in 2018 RECS: -[place]/ peanut butter crackers--small qtys 2) ER for eval for diarrhea and dehydration Dannie Callaway MD documented in this encounterToledo Hospital05-28-2023 Miscellaneous Notes* Telephone Encounter - Kathleen Cho RN - 07/05/2022 10:16 AM EDT Reason for Call: Patient calling regarding variable blood sugars and new onset of diarrhea. Conferenced to [facility] [place] holiday detector operator, , to speak with provider business administration professor for Bipin Nina CNP for endocrinology business administration professor. Seek emergency care, if necessary. documented in this encounterToledo Hospital05-23-2023 NoteHNO ID: [id number] Author: Cass Banks RD Service: ? Author Type: Registered Dietitian Type: Progress Notes Filed: 07/01/2022 9:07 AM Note Text: [facility] I have communicated my name and active licensure. The patient's identity and physical location were verified at the time of this visit. Either the patient or their legal new accounts banking representative has been informed of the risks and benefits of -- and alternatives to -- treatment through a remote evaluation and consents to proceed with the evaluation remotely. Medical Nutrition Therapy Visit Type: Virtual: I have discussed the nature of this visit with the patient which will occur via [facility] (Phone, Virtual Visit) and she agrees to proceed with this interaction . 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 No Symptoms: Patient's symptoms are as follows: Weight Concerns: weight gain and failure to lose weight How many hours of sleep on average? 4 or less - Pt reports chronic insomnia. Diet History: Pt did not report full diet recall. Pt reports eating very low carb yesterday (06/29/22) and was able to catch hypoglycemia at ~70mg/dL and take glucose tabs. Pt does not eat fish/ shellfish. Allergies: No Food Allergy Patient / Provider Comments: This visit was conducted as a virtual visit. Pt reports hx of gastric bypass and many complications. Pt reports issues swallowing, mannie - pt had hx of esophageal dilation - describes dysphagia. Pt reports increased episodes of feeling anxious, sweaty, shaky, etc., always 30-60 minutes after meals. Pt reports she only recently realized these were episodes of low blood sugar, often testing to see BG between 49-70mg/dL. Discussed hypo treatment and reactive hypo in-depth. Recommend pt limit carbs until possible medication. Medications: Current Outpatient Medications Medication Sig semaglutide (OZEMPIC) 0.25 mg or 0.5 mg (2 mg/3 mL) pen Inject 0.25 mg subcutaneously one time a week. Blood-Glucose Sensor (Best Before MediaSTYLE NBA 3 SENSOR) vinny Use to check glucose 4 times or more daily. Change sensor every 14 days. blood sugar diagnostic (TRUE METRIX GLUCOSE TEST STRIP) test strip Use as instructed to check glucose 4 x daily or more as needed. tretinoin (RETIN-A) 0.025 % topical cream Apply to affected area daily at bedtime. zaleplon (SONATA) 5 mg capsule Take 1 capsule if unable to fall back to sleep after waking during night as long as 4 hours remain for sleep. Do not start before May 28, 2022. cholecalciferol (VITAMIN D-3) 5,000 unit tab 2 tabs po q am for 90 days diclofenac (VOLTAREN ARTHRITIS PAIN) 1 % topical gel Apply 4 g to affected area four times daily. CPAP/BIPAP/OTHER Type .CPAPSettings into a note to see current settings/supplies/DME information. ALPRAZolam (XANAX) 0.25 mg tablet Take 0.5 tablets by mouth as needed. meclizine (ANTIVERT) 25 mg tab Take 0.5-1 tablets by mouth three times daily as needed (for dizziness.). BIPAP Lifetime supplies for BiPAP 12/8 cm H20 including mask, heated tubing, humidity, filters. Dx: G47.33 magnesium oxide (MAG-OX) 400 mg (241.3 mg magnesium) tablet Take 1 tablet by mouth once daily. promethazine (PHENERGAN) 25 mg tablet Take 25 mg by mouth four times daily as needed. thiamine (VITAMIN B-1) 100 mg tablet Take 1 tablet by mouth once daily. cyanocobalamin 1,000 mcg/mL inject 1 milliliter intramuscularly ONCE A MONTH as instructed pantoprazole DR (PROTONIX) 40 mg tablet Take 1 tablet by mouth as needed. Syringe with Needle, Safety (EASY TOUCH SHEATHLOCK SYRG-NDL) 3 mL 25 gauge x 1 syrg Weekly methotrexate injections, monthly vit b12 injections as instructed No current facility-administered medications for this visit. Labs: Glucose (mg/dL) Date Value 06/16/2022 96 03/17/2021 134 Potassium (mmol/L) Date Value 06/16/2022 3.9 03/17/2021 3.9 Sodium (mmol/L) Date Value 06/16/2022 140 03/17/2021 134 Chloride (mmol/L) Date Value 06/17/19 (more content not included)...[facility]05-[facility] Miscellaneous Notes* Telephone Encounter - Bipin Nina APRN.CNP - 06/30/2022 12:57 PM EDT Images from the original note were not included. No hypoglycemia today. Improved control of glucose following telephone conversation discussing necessary diet changes yesterday. This patient gave consent to this Medical Advice Message and is aware that it may result in a bill to their insurance, as well as the possibility of receiving a bill for a copay and/or deductible. They are an established patient, but are not seeking information exclusively about a problem treated during an in person or video visit in the last seven days. I did not recommend an in person or video visit within seven days of my reply. See the [employer] message reply for my assessment and plan. I spent a total of 7 minutes reviewing the patient's prior medical records and current request for medical advice, prescribing medications or ordering tests (if applicable), replying to the patient, and documenting the encounter. Bipin Nina APRN.CNP * Telephone Encounter - Maribel Scott MA - 06/29/2022 4:19 PM EDT Images from the original note were not included. documented in this encounterToledo Hospital05-16-2023 NoteHNO ID: [id number] Author: Marichuy Suarez MD Service: ? Author Type: Physician Type: Progress Notes Filed: 06/23/2022 1:30 PM Note Text: Evaluation of droopy upper lids OD >> OS. Patient feels side vision affected especially while driving. Getting worse per patient. Twitching both eyelids Patanol Tears as needed. A/P: Heavy upper eyelids Feels that eyelids block vision and sees better when lifted especially when driving and reading Referred by Dr. Og H/o thyroidectomy 2011 but some remaining thyroid ; h/o hashimotos Labs 06/16/22: TSH, T3, T4 within normal limits, TPO high No double vision No issues eating/swallowing No H/o contact lens use Exam: Brow ptosis No skin on lashes AL: 21, 23 LF: 15, 15 Margin to reflex distance 1: 4.5, 4.5 Ptosis visual field diff: 18, 13 Pupils symmetric Extraocular movement full, no diplopia Bilateral lower lid festoons R>L 1mm papillomas x 3 Sle: Cornea clear both eyes No Superficial punctate keratopathy (SPK) No conjunctival injection both eyes No a/c reaction both eyes Iris within normal limits both eyes Patient has brow ptosis lower than orbital rims, especially laterally -Without brow lift there will be suboptimal improvement of heavy upper lids. Discussed options: - Can consider Botox for brow lift (lasts 3 mo, also cosmetic). Botox takes 1 week to set in lasts 3-4 mo, cost $12.50/unit, typical dose 25-35 units $300-450 Discussed risk of bruising, spread to cause droopy eyelid,double vision, rare allergic reaction, rare generalized weakness with neurological disorders eg. Eaton Lambert syndrome No excess skin for Bilateral upper lids blepharoplasty Risks, benefits, alternatives discussed and patient wishes to proceed. Consent obtained 25 units Botox estimated ~$312.50 Discussed could consider tetracycline injection to address festoons, Not 100% effective, some patients not all see improvements, off label use of medication , usually need 2-3 injections may need multiple treatments $450 per treatment at main campus; not great treatment Patient concerned about wrinkles Recc Retin-A Use as directed. Wash face and patient dry. Apply thin film of Retin-A to face, making sure not to get into eyes. Start every 3rd night then can gradually increase to every other night or every night if no redness/peeling/dryness If using cream in a tube, use a small pea size amount If using the pump, one pump for entire face to start (if can tolerate can do 1 pump for each side of face) If redness, peeling or dryness, can decrease and also mix 1:1 with Cetaphil daily facial ceramics teacher To help spread Retin-A can put spots on face then blend (ie. 3 dots on forehead, 1 on each cheek, one on each lower face, one on nose, and one on chin). After allowing to dry, can use regular moisturizer F/u for Botox if desires The documentation for this note was completed by Chepe Shea APRN, CNP acting as a scribe for Marichuy Suarez MD. 06/23/2022 1:23 PM. I have confirmed and edited as necessary the relevant ophthalmic history, ROS, and the neuro exam findings as obtained by others. I have seen and examined Esme Morfin. I have discussed the case and the management of this patient's care with the Resident/Fellow, if applicable. I also have reviewed and agree with the assessment and plan as stated above and agree with all of its relevant components. I, Marichuy Suarez MD, personally performed the services described in this documentation. All medical record entries made by the scribe were at my direction and in my presence. I have reviewed the chart and discharge instructions (if applicable) and agree that the record reflects my personal performance and is accurate and complete. Electronically Signed: Marichuy Suarez MD, June 23, 2022 1:23 PM.[facility]05-16-2023 Instructions* Patient Instructions* Marichuy Suarez MD - 06/23/2022 1:26 PM EDT Patient has brow ptosis lower than orbital rims, especially laterally -Without brow lift there willbe suboptimal improvement of heavy upper lids. Discussed options: - Can consider Botox for brow lift (lasts 3 mo, also cosmetic). Botox takes 1 week to set in lasts 3-4 mo, cost $12.50/unit, typical dose 25-35 units $300-450 Discussed risk of bruising, spread to cause droopy eyelid,double vision, rare allergic reaction, rare generalized weakness with neurological disorders eg. Eaton Lambert syndrome No excess skin for Bilateral upper lids blepharoplasty Risks, benefits, alternatives discussed and patient wishes to proceed. Consent obtained 25 units Botox estimated ~$312.50 Discussed could consider tetracycline injection to address festoons, Not 100% effective, some patients not all see improvements, off label use of medication , usually need 2-3 injections may need multiple treatments $450 per treatment at main campus; not great treatment Patient concerned about wrinkles Recc Retin-A Use as directed. Wash face and patient dry. Apply thin film of Retin-A to face, making sure not to get into eyes. Start every 3rd night then can gradually increase to every other night or every night if no redness/peeling/dryness If using cream in a tube, use a small pea size amount If using the pump, one pump for entire face to start (if can tolerate can do 1 pump for each side of face) If redness, peeling or dryness, can decrease and also mix 1:1 with Cetaphil daily facial ceramics teacher To help spread Retin-A can put spots on face then blend (ie. 3 dots on forehead, 1 on each cheek, one on each lower face, one on nose, and one on chin). After allowing to dry, can use regular moisturizer F/u for Botox if desires [facility] History of Present illness Narrative* Marichuy Suarez MD - 06/23/2022 12:45 PM EDT Evaluation of droopy upper lids OD >> OS. Patient feels side vision affected especially while driving. Getting worse per patient. Twitching both eyelids Patanol Tears as needed. A/P: Heavy upper eyelids Feels that eyelids block vision and sees better when lifted especially when driving and reading Referred by Dr. Og H/o thyroidectomy 2011 but some remaining thyroid ; h/o hashimotos Labs 06/16/22: TSH, T3, T4 within normal limits, TPO high No double vision No issues eating/swallowing No H/o contact lens use Exam: Brow ptosis No skin on lashes AL: , LF: 15, 15 Margin to reflex distance 1: 4.5, 4.5 Ptosis visual field diff: 18, 13 Pupils symmetric Extraocular movement full, no diplopia Bilateral lower lid festoons R>L 1mm papillomas x 3 Sle: Cornea clear both eyes No Superficial punctate keratopathy (SPK) No conjunctival injection both eyes No a/c reaction both eyes Iris within normal limits both eyes Patient has brow ptosis lower than orbital rims, especially laterally -Without brow lift there willbe suboptimal improvement of heavy upper lids. Discussed options: - Can consider Botox for brow lift (lasts 3 mo, also cosmetic). Botox takes 1 week to set in lasts 3-4 mo, cost $12.50/unit, typical dose 25-35 units $300-450 Discussed risk of bruising, spread to cause droopy eyelid,double vision, rare allergic reaction, rare generalized weakness with neurological disorders eg. Eaton Lambert syndrome No excess skin for Bilateral upper lids blepharoplasty Risks, benefits, alternatives discussed and patient wishes to proceed. Consent obtained 25 units Botox estimated ~$312.50 Discussed could consider tetracycline injection to address festoons, Not 100% effective, some patients not all see improvements, off label use of medication , usually need 2-3 injections may need multiple treatments $450 per treatment at main campus; not great treatment Patient concerned about wrinkles Recc Retin-A Use as directed. Wash face and patient dry. Apply thin film of Retin-A to face, making sure not to get into eyes. Start every 3rd night then can gradually increase to every other night or every night if no redness/peeling/dryness If using cream in a tube, use a small pea size amount If using the pump, one pump for entire face to start (if can tolerate can do 1 pump for each side of face) If redness, peeling or dryness, can decrease and also mix 1:1 with Cetaphil daily facial ceramics teacher To help spread Retin-A can put spots on face then blend (ie. 3 dots on forehead, 1 on each cheek, one on each lower face, one on nose, and one on chin). After allowing to dry, can use regular moisturizer F/u for Botox if desires The documentation for this note was completed by Chepe Shea APRN, CNP acting as a scribe for Marichuy Suarez MD. 06/23/2022 1:23 PM. I have confirmed and edited as necessary the relevant ophthalmic history, ROS, and the neuro exam findings as obtained by others. I have seen and examined Esme Morfin. I have discussed the case and the management of this patient's care with the Resident/Fellow, if applicable. I also have reviewed and agree with the assessment and plan as stated above and agree withall of its relevant components. I, Marichuy Suarez MD, personally performed the services described in this documentation. All medical record entries made by the scribe were at my direction and in my presence. I have reviewed the chart and discharge instructions (if applicable) and agree that the record reflects my personal performance and is accurate and complete. Electronically Signed: Marichuy Suarez MD, June 23, 2022 1:23 PM. documented in this encounterT[facility]edo [facility]05-16-[facility]23 NoteHNO ID: [id number] Author: Bipin Nina APRN.FRANK Service: ? Author Type: Nurse Practitioner Type: Progress Notes Filed: 06/23/2022 11:45 AM Note Text: Endocrinology Follow-up Subjective History of Present Illness Esme Morfin is a 46 year old female who presents today for follow up of T2DM and hypoglycemia. 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 Last seen by endocrinology 10/25/2020 (Dr. Leavitt). Started wearing CGM 4 days ago Having a lot of lows lately - feeling of dizziness, lightheaded, blurred vision, sweaty Checked with regular meter - confirmed low of 49 ,mg/dL Notices lows with carb intake Lows generally follow a meal - with more carbs Gained 29-30 lbs over last 9 months Recent A1c Results: Hemoglobin A1C (%) Date Value 06/16/2022 6.2 01/21/2022 6.3 03/17/2021 6.0 12/27/2020 6.2 08/13/2020 6.1 DM Complications: Microvascular: none Macrovascular: none Current DM Regimen: None currently BGM: - Frequency of Monitorin or more times daily - Reports hypoglycemia. Lows confirmed with fingerstick - Able to self treat: Yes - BG Values: Summary of Personal CGM Findings: Dates worn: 06/10/2022 - 06/23/2022 CGM Type: nba 3 CGM recording is adequate for interpretation. Worn 28% of time. Average BG 108 Time in range (BG 70-180 mg/dL) 76% Coefficient of variation 40.4% Time below range (BG < 70 mg/dL) 15% Hypoglycemia notes: Post prandial, nocturnal noted Time above range (BG > 180 mg/dL) 9% Hyperglycemia notes: Very brief post prandial Physical Activity: Modest physical activity Walking started up recently Diet: portion control, grazes throughout day Meals per day: 2 Snacks per day: grazing throughout day Doing ok with diet - drinking regular small dr pepper pop a few cans a day Prior DM Medications: - Health Maintenance: Health Maintenance Topics Topic Date Due DIABETIC FOOT EXAM Never done Medications, Past History, Allergies Current Medications 06/23/2022 OTHER Medication Dosage Pharm Subclass ALPRAZolam (XANAX) 0.25 mg tablet Take 0.5 tablets by mouth as needed. Antianxiety Agent - Benzodiazepines BIPAP Lifetime supplies for BiPAP 12/8 cm H20 including mask, heated tubing, humidity, filters. Dx: G47.33 Medical Supply, [employer] Superset cholecalciferol (VITAMIN D-3) 5,000 unit tab 2 tabs po q am for 90 days Vitamins - D Derivatives CPAP/BIPAP/OTHER Type .CPAPSettings into a note to see current settings/supplies/DME information. Medical Supply, [employer] Superset cyanocobalamin 1,000 mcg/mL inject 1 milliliter intramuscularly ONCE A MONTH as instructed Vitamins - B-12, Cyanocobalamin and derivatives diclofenac (VOLTAREN ARTHRITIS PAIN) 1 % topical gel Apply 4 g to affected area four times daily. Dermatological - NSAID Single Agents magnesium oxide (MAG-OX) 400 mg (241.3 mg magnesium) tablet Take 1 tablet by mouth once daily. Antacid - Magnesium meclizine (ANTIVERT) 25 mg tab Take 0.5-1 tablets by mouth three times daily as needed (for dizziness.). Antiemetic - Antihistamines pantoprazole DR (PROTONIX) 40 mg tablet Take 1 tablet by mouth as needed. Gastric Acid Secretion Waistline Joiner Overlock - Proton Pump Inhibitors (PPIs) promethazine (PHENERGAN) 25 mg tablet Take 25 mg by mouth four times daily as needed. Antihistamine - 1st Generation - Phenothiazines Syringe with Needle, Safety (EASY TOUCH SHEATHLOCK SYRG-NDL) 3 mL 25 gauge x 1 syrg Weekly methotrexate injections, monthly vit b12 injections as instructed Medical Supplies and DME - [place] and Syringes thiamine (VITAMIN B-1) 100 mg tablet Take 1 tablet by mouth once daily. Vitamins - B-1, Thiamine and Derivatives zaleplon (SONATA) 5 mg capsule Take 1 capsule if unable to fall back to sleep after waking during night as long as 4 hours remain for sleep. Do not start before May 28, 2022. 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 Mitral and aortic valve regurgitation 09/08/2009 Aortic insufficiency EF 60% DR Zuniga -- judged to be non-surgical and mild Nephrolithiasis TALIA (obstructive sleep apnea) 2015 on CPAP and BiPAP Postoperative malabsorption 03/04/2017 Rheumatoid arthritis (HCC) was treated with mtx plaquenil in past Thyroiditis, unspecified Thyroiditis Viral pneumonia, unspecified Pneumonia Vomiting of fecal matter PAST SURGICAL HISTORY Proc (more content not included)...[facility]05-16-[facility]23 Miscellaneous Notes* Telephone Encounter - Brooke Hermosillo LPN - 06/23/2022 10:43 AM EDT Attempted to reach patient, Voicemail is full. Patient is currently at appointment with Endo URBAN REDEVELOPMENT SPECIALIST * Telephone Encounter - Elijah Degroot MA - 06/17/2022 12:00 PM EDT Attempted to reach patient regarding message below. Unable to leave a message as voicemail box is full. Will try to call back again. * Telephone Encounter - Lizzie Leavitt MD - 06/17/2022 8:22 AM EDT Would ask her to continue checking BG if feeling possible symptoms of hypoglycemia, and to keep records as she has been. Could try to get sooner appointment with virtual visit. * Telephone Encounter - Gina Holman RN - 06/15/2022 9:51 AM EDT Pt transferred to this technical proposal writer for triage Hx of bypass surgery Per pss last vv f/u in one year endo no show Asking how often to check bs daily d/t below Reports frequency urination - up all night for the past month Water retention and feels d/t low bs ( Advised to reach out to pcp) seeing card - 5-3 bs (52) 530 pm just ate an hour before dizzy and felt like going to pass out sweaty With 52 bs reading ate chocolate and later bs 55 ( still not well) 1.5 hours later bs 88 went to bed d/t exhausted' 5-4 felt ok did not check sugar 5-6 ate 3 pm felt fine Dizzy 440 pm 457 pm bs 49 ate cake 69 recheck drank pop and chocalate covered cherries 40 minutes later 117 bs at 8 pm very tired and went to bed 5-7 319 pm bs 138 felt fine - ate Jittery at 429 pm 263 at 518 pm 63 Ate chocolate 7 pm 100 bs ( felt better) Tired went to bed 1120 pm bs 93 still tired and hungry Has a snack ( spaghetti 2-3 bites ) 5-8 1236 am bs 204 felt better but still tired 150 am bs 93 felt ok 841 am bs 121 felt ok ( ate spaghetti 3-4 bites) 946 am 206 felt fine Feels ok now bs 174 06-23 appt noted vv Advised sooner appt Earliest Dr Leavitt appt Pt on wait list Pt was advised to carry life savers ( 5 pieces ) or 3 peppermint candies to resolved now sugars Advised er if feeling like going to pass out Shasha back if s/s worsen / return Call transferred to endo scheduling to assist with appt scheduling * Telephone Encounter - Sharee Lebron Pss - 06/15/2022 9:47 AM EDT Patient called stating that she is having low blood sugars that is running in the 40s. She currently is scheduled for an appointment virtually on 06/23/2022 with another provider just so she can be seen. She is on hold for nurse triage. She can be reached at [phone]. Please advise. documented in this [facility]-15-[facility]23 Miscellaneous Notes* Telephone Encounter - Anna Gold RN - 06/22/2022 11:34 AM EDT Patient states she is using the Freestyle Nba 3 sensors- ordered by her family doctor. Started using CGM on the and has had issues with high highs and low lows. She states she is hypoglycemic symptomatic when CGM reads low. Symptoms are shaky, blurred vision, and sweating. She generally grabs for chocolate or hard candiesto increase blood sugar then it increased significantly. Patient states she had gastric bypass in 2018 and is generally dehydrated and has had more frequent urination lately. Has had swelling in her legs, saw [facility] Cardiology on 06/16/22 Appointment scheduled with Bipin Nina CNP at 10:20am tomorrow. documented in this encounterT[facility]05-09-[facility]23 NoteHNO ID: [id number] Author: Luis F Barraza APRN.FRANK Service: ? Author Type: Nurse Practitioner Type: Progress Notes Filed: 06/18/2022 6:17 PM Note Text: Heart and Vascular [place] SECTION OF REGIONAL CARDIOLOGY OUTPATIENT VISIT DATE June 16, 2022 OUTPATIENT VISIT TYPE Established PRIMARY CARE PHYSICIAN: Farhat Pineda MD [address] [id number] CC: edema, palpitations Elements of this note, including HPI, ROS, Physical Exam, Assessment and Plan were copied and pasted from previous office visit notes completed within our department. Updates have been made where appropriate/noted and reflect current exam and medical decision making from date of this visit. HISTORY OF PRESENT ILLNESS: Ms. Morfin is a 46 year old female a past medical history of palpitations, mild-moderate aortic regurgitation, DM 2, GERD, micropapillary carcinoma thyroid status post surgery, TALIA, RA, chronic anemia, obesity status post bariatric surgery, anxiety diagnosed with COVID with BL pneumonia on 04/30/20. She has had two GI surgeries and a thoracic surgery for paraesophageal hernia. Has hX of TALIA and when she lost 100# following bariatric surgery, stopped using her CPAP--- is now using it again She was seen 01/07/21. At that visit she described episodes of palpitations described as intermittent pounding and skipping. She underwent ZIO monitor which showed occasional episodes of nonsustained paroxysmal SVT. Metoprolol succinate 25 mg daily was added. She is here today with symptoms of bilateral lower extremity edema that occur from the ankle to the thigh, palpitations and near syncope. She was seen by her primary care provider which is at an outside hospital. A Action Engineice heart monitor was recently placed and the patient is currently wearing the monitor. Also, laboratory studies were recently ordered and are in process. Her weight had been quite stable for the past year and a half however she has gained 14 pounds in the past week according to [facility] weights in synopsis. She currently denies shortness of breath, chest discomfort, orthopnea. An echocardiogram was done at her primary care provider's office in March and is detailed below. She treats her obstructive sleep apnea with CPAP and is consistent with its use. REVIEW OF SYSTEMS: GENERAL: No weakness, malaise, fevers, chills RESPIRATORY: Negative for cough, wheezing, chest pain with respiration, sputum production GI: No nausea, vomiting, diarrhea, constipation, abdominal pain, hematochezia, black tarry stools. Appetite is good NEURO: No paralysis, weakness, dizziness, loss of consciousness All other reviewed and negative other than HPI. 10 systems reviewed and are negative with the exception of pertinent positives described in HPI IMPRESSION: Encounter Diagnosis ICD-10-CM 1. PVC (premature ventricular contraction) I49.3 2. Palpitations R00.2 ECG COMPLETE 3. TALIA (obstructive sleep apnea) G47.33 4. Localized edema R60.0 PLAN AND RECOMMENDATIONS: Palpitations: Patient has had a sensation of palpitations for several years. Previous heart monitors including a 14-day ZIO monitor has shown runs of nonsustained SVT but no malignant dysrhythmias. She reports a worsening of the palpitations and is currently wearing a Preventice monitor placed by her primary care provider. I will await the results. She currently is taking no medications such as beta-blockers or calcium channel blockers. In the past, she felt that the metoprolol succinate had helped her and decrease the palpitations. Likely, this medication will need to be restarted but I will await the monitor results. ECG today shows normal sinus rhythm with a heart rate of 81 bpm. Echocardiogram reviewed and shows normal LVEF and mild [id number] valve regurgitation without evidence of significant structural heart disease. Continue to treat sleep apnea. Patient notes a worsening of bilateral extremity edema and a 14 pound weight gain in 1 week. Today, she has no edema, lungs are clear to auscultation Obesity noted, patient should use exercise as tolerated and a heart healthy diet. Will follow up with patient in 6 months or sooner if problems persist or worsen Luis F Barraza, RN, MSN, URBAN REDEVELOPMENT SPECIALIST-C Adult Nurse Practitioner Rowan Verma Department of Cardiovascular Medicine [facility], Thoracic [place] [facility] PHYSICAL EXAMINATION: BP 135/77 Pulse 84 Wt 102.9 kg (226 lb 14.4 oz) LMP 04/06/2022 (Within Days) SpO2 99% BMI 42.87 kg/m? Physical Exam Constitutional: General: No acute distress. Appearance: Normal appearance. Eyes: General: No scleral icterus. Extraocular Movements: Extraocular movemen (more content not included)... [facility]05-09-[facility] History of Present illness Narrative* Luis F Barraza APRN.DRILL PRESS HAND - 06/16/2022 3:48 PM EDT Images from the original note were not included. [facility] V[facility] [place] SECTION OF REGIONAL CARDIOLOGY OUTPATIENT VISIT DATE June 16, 2022 OUTPATIENT VISIT TYPE Established PRIMARY CARE PHYSICIAN: Farhat Pineda MD [address] [place] [address] CC: edema, palpitations Elements of this note, including HPI, ROS, Physical Exam, Assessment and Plan were copied and pasted from previous office visit notes completed within our department. Updates have been made where appropriate/noted and reflect current exam and medical decision making from date of this visit. HISTORY OF PRESENT ILLNESS: Ms. Morfin is a 46 year old female a past medical history of palpitations, mild- moderate aortic regurgitation, DM 2, GERD, micropapillary carcinoma thyroid status post surgery, TALIA, RA, chronic anemia, obesity status post bariatric surgery, anxiety diagnosed with COVID with BL pneumonia on 04/30/20. She has had two GI surgeries and a thoracic surgery for paraesophageal hernia. Has hX of TALIA and when she lost 100# following bariatric surgery, stopped using her CPAP--- is now using it again She was seen 01/07/21. At that visit she described episodes of palpitations described as intermittent pounding and skipping. She underwent ZIO monitor which showed occasional episodes of nonsustainedparoxysmal SVT. Metoprolol succinate 25 mg daily was added. She is here today with symptoms of bilateral lower extremity edema that occur from the ankle to thethigh, palpitations and near syncope. She was seen by her primary care provider which is at an outside hospital. A Action Engineice heart monitor was recently placed and the patient is currently wearing the monitor. Also, laboratory studies were recently ordered and are in process. Her weight had been quite stable for the past year and a half however she has gained 14 pounds in the past week according to [facility] weights in synopsis. She currently denies shortness of breath, chest discomfort,orthopnea. An echocardiogram was done at her primary care provider's office in March and is detailed below. She treats her obstructive sleep apnea with CPAP and is consistent with its use. REVIEW OF SYSTEMS: GENERAL: No weakness, malaise, fevers, chills RESPIRATORY: Negative for cough, wheezing, chest pain with respiration, sputum production GI: No nausea, vomiting, diarrhea, constipation, abdominal pain, hematochezia, black tarry stools. Appetite is good NEURO: No paralysis, weakness, dizziness, loss of consciousness All other reviewed and negative other than HPI. 10 systems reviewed and are negative with the exception of pertinent positives described in HPI IMPRESSION: Encounter Diagnosis ICD-10-CM 1. PVC (premature ventricular contraction) I49.3 2. Palpitations R00.2 ECG COMPLETE 3. TALIA (obstructive sleep apnea) G47.33 4. Localized edema R60.0 PLAN AND RECOMMENDATIONS: Palpitations: Patient has had a sensation of palpitations for several years. Previous heart monitors including a 14-day ZIO monitor has shown runs of nonsustained SVT but no malignant dysrhythmias. She reports a worsening of the palpitations and is currently wearing a Preventice monitor placed by her primary care provider. I will await the results. She currently is taking no medications such as beta-blockers or calcium channel blockers. In the past, she felt that the metoprolol succinate had helped her and decrease the palpitations. Likely, this medication will need to be restarted but I willawait the monitor results. ECG today shows normal sinus rhythm with a heart rate of 81 bpm. Echocardiogram reviewed and shows normal LVEF and mild xpzvzz-laucvg-vkmmofhxc valve regurgitation without evidence of significant structural heart disease. Continue to treat sleep apnea. Patient notes a worsening of bilateral extremity edema and a 14 pound weight gain in 1 week. Today,she has no edema, lungs are clear to auscultation Obesity noted, patient should use exercise as tolerated and a heart healthy diet. Will follow up with patient in 6 months or sooner if problems persist or worsen Luis F Barraza, RN, MSN, URBAN REDEVELOPMENT SPECIALIST-C Adult Nurse Practitioner Rowan Verma Department of Cardiovascular Medicine [facility], Thoracic [place] [facility] PHYSICAL EXAMINATION: BP 135/77 Pulse 84 Wt 102.9 kg (226 lb 14.4 oz) LMP 04/06/2022 (Within Days) SpO2 99% BMI42.87 kg/m Physical Exam Constitutional: General: No acute distress. Appearance: Normal appearance. Eyes: General: No scleral icterus. Extraocular Movements: Extraocular movements intact. Neck: No JVD, no bruit Cardiovascular: Rate and Rhythm: Normal rate and regular rhythm. Heart sounds: Normal heart sounds. No murmur. No friction rub. No gallop. Right lower leg: no edema Left lower leg: no edema Respiratory: Effort: Pulmonary effort is normal. Breath sounds: Clear to auscultation. No rhonchi, crackles, or wheeze Gastrointestinal: General: There is no distension. Palpations: Abdomen is soft. Tenderness: There is no abdominal tenderness. There is no guarding. Musculoskeletal: Normal ROM. Skin: General: Skin is warm and dry. Neurological: Mental Status: Alert &Oriented. Moving all extremities spontaneously. No focal neurological deficits Psychiatric: Mood and Affect: Mood normal. Speech: Speech normal. CARDIOVASCULAR MEDICINE TESTING: I have personally reviewed ECHO (echocardiogram from outside hospital dated April 03, 2022): LVEF 55-60%, normal diastolic function, mild mitral valve regurgitation, mild aortic valve regurgitation, mild tricuspid valve regurgitation, mildly elevated right-sided pressure, no pericardial effusion. RVSP 35 mmHg. Type of Monitor: Extended Monitoring-Zio Patch Enrollment Dates: 11/21/2020-11/30/2020 Patient had a min HR of 44 bpm, max HR of 143 bpm, and avg HR of 83 bpm. Predominant underlying rhythm was Sinus Rhythm. QRS morphology changes were present throughout recording. 6 Supraventricular Tachycardia runs occurred, the run with the fastest interval lasting 13 beats with a max rate of 143 bpm (avg 133 bpm); the run with the fastest interval was also the longest. Isolated SVEs were rare (<1.0%), SVE Couplets were rare (<1.0%), and no SVE Triplets were present. Isolated VEs were rare (<1.0%), and no VE Couplets or VE Triplets were present. Vetrnicular Bigeminy was present. STRESS TEST (10/29/2020) 1. SPECT Perfusion Study: Normal. 2. There is no scintigraphic evidence for inducible ischemia. 3. No evidence of scarred myocardium. 4. Left ventricle is normal in size. The left ventricle systolic function is normal. 5. Right ventricle is normal in size. The right ventricle systolic function is normal. 6. This is a low risk scan. Gated Stress FBP LVEF % 81 ECG-10/24/2020 Normal sinus rhythm 79 bpm, left axis deviation, abnormal ECG Echo - 07/17/20 outside facility LVEF 60-65% mild LVH Mild TR Mild to moderate aortic regurg Carotid US - 09/16/20 outside facility No significant stenosis Hemoglobin (g/dL) Date Value 01/21/2022 14.5 12/27/2020 10.3 Hematocrit (%) Date Value 01/21/2022 45.0 12/27/2020 34.9 WBC (k/uL) Date Value 01/21/2022 6.75 12/27/2020 6.58 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 Mitral and aortic valve regurgitation 09/08/2009 Aortic insufficiency EF 60% DR Zuniga -- judged to be non-surgical and mild Nephrolithiasis TALIA (obstructive sleep apnea) 2016 on CPAP and BiPAP Postoperative malabsorption 03/04/2017 Rheumatoid arthritis (HCC) was treated with mtx plaquenil in past Thyroiditis, unspecified Thyroiditis Viral pneumonia, unspecified Pneumonia Vomiting of fecal matter PAST SURGICAL HISTORY Procedure Laterality Date ANES HRNA REPAIR UPR ABD TABDL RPR DIPHRG HRNA open 2002 COLONOSCOPY FLX DX W/COLLJ SPEC WHEN PFRMD Colonoscopy COLPO OF CERVIX WBIOPSYECC 04/04/2018 ESOPHAGOGASTRODUODENOSCOPY TRANSORAL DIAGNOSTIC EGD multiple GASTRIC BYPASS HX 2017 LAPAROSCOPY SURG CHOLECYSTECTOMY -2010 Cholecystectomy, lap LIG/TRNSXJ FLP TUBE ABDL/VAG APPR UNI/BI 1996 PAST SURGICAL HISTORY OF cardiac cath REPAIR PARAESOPHAGEAL HERNIA THYROIDECTOMY TOTAL/COMPLETE 02-04-2010 ? patial/incomplete Social History Tobacco Use Smoking status: Never Smokeless tobacco: Never Vaping Use Vaping Use: Never used Substance Use Topics Alcohol use: Not Currently Comment: Social Drug use: No FAMILY HISTORY Problem Relation Age of Onset Thyroid Mother graves' s/p I 131 Glaucoma Mother Heart Father Thyroid Sister goiter. None Sister Garcia's palsy. Diabetes Maternal Grandmother Diabetes Maternal Grandfather ALLERGIES Allergen Reactions Contrast Dye [Iodin* Other: See Comments Mobic [Meloxicam] Intolerance GI bleed with transfusion Motrin [Ibuprofen] Other: See Comments GI Bleed Nsaids (Non-Steroid* Unknown Prednisone Contraindication-Medical Surgical GI bleed Scopolamine Mental Status Change Paranoia, confusion, hallucination CURRENT MEDICATIONS: zaleplon (SONATA) 5 mg capsule Take 1 capsule if unable to fall back to sleep after waking during night as long as 4 hours remain for sleep. Do not start before May 28, 2022. cholecalciferol (VITAMIN D-3) 5,000 unit tab 2 tabs po q am for 90 days diclofenac (VOLTAREN ARTHRITIS PAIN) 1 % topical gel Apply 4 g to affected area four times daily. CPAP/BIPAP/OTHER Type .CPAPSettings into a note to see current settings/supplies/DME information. ALPRAZolam (XANAX) 0.25 mg tablet Take 0.5 tablets by mouth as needed. meclizine (ANTIVERT) 25 mg tab Take 0.5-1 tablets by mouth three times daily as needed (for dizziness.). BIPAP Lifetime supplies for BiPAP 12/8 cm H20 including mask, heated tubing, humidity, filters. Dx:G47.33 magnesium oxide (MAG-OX) 400 mg (241.3 mg magnesium) tablet Take 1 tablet by mouth once daily. promethazine (PHENERGAN) 25 mg tablet Take 25 mg by mouth four times daily as needed. thiamine (VITAMIN B-1) 100 mg tablet Take 1 tablet by mouth once daily. cyanocobalamin 1,000 mcg/mL inject 1 milliliter intramuscularly ONCE A MONTH as instructed pantoprazole DR (PROTONIX) 40 mg tablet Take 1 tablet by mouth as needed. Syringe with Needle, Safety (EASY TOUCH SHEATHLOCK SYRG-NDL) 3 mL 25 gauge x 1 syrg Weekly methotrexate injections, monthly vit b12 injections as instructed documented [facility]05-[facility]-2023 NoteHNO ID: [id number] Author: Opal Og, OD Service: ? Author Type: CONTENT DEVELOPMENT SPECIALIST Type: Progress Notes Filed: 06/11/2022 12:43 PM Note Text: (H40.003) Glaucoma suspect of both eyes (primary encounter diagnosis) Comment: stable possible physiologic cupping Plan: monitor in 12 months FULL with ON OCT (E11.9) Type 2 diabetes mellitus without retinopathy (HCC) Comment: no npdr Plan: monitor in 12 months (H02.831, H02.834) Dermatochalasis of both upper eyelids Comment: OD > OS pt feels interfering with vision Plan: refer to Dr Suarez also evaluate RLL position appears to have lag temporally possibly 2/2 injury (H10.45) Other chronic allergic conjunctivitis of both eyes Comment: moderate papillae Plan: add patanol bid OU (H04.123) Dry eye syndrome of bilateral lacrimal glands Comment: moderate BROOK Plan: add artificial tears bid-tid OU I have confirmed and edited as necessary the relevant ophthalmic history, ROS, and the neuro exam findings as obtained by others. I have seen and examined this patient. I have discussed the case and the management of this patient's care with the Resident/Fellow, if applicable. I also have reviewed and agree with the assessment and plan as stated above and agree with all of its relevant components. Opal Og, OD June 11, 2022 12:41 [facility]05-04-2023 NoteHNO ID: [id number] Author: Eleanor Kenny, DO Service: ? Author Type: Physician Type: Progress Notes Filed: 06/21/2022 11:38 PM Note Text: CC: Annual Exam: Esme Morfin is a 46 year old 3 Para 3, LMP presents for well woman examination Family History: Denies uterine/ovarian/cervical/vaginal or vulvar cancers. MAunt Breast Cancer (?cervical cancer too) Patient is identified by name and birthdate: Yes Medications were reviewed and verified. Her health maintenance record has been reviewed and has been updated: Yes Is patient having any pain? 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: No Problem with urinary or bowel incontinence: No Menarche 9 years old Periods regular every 28 days Cramps: No Clots: No Cycles: regular Menopausal symptoms: No Contraceptive history: Yes 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 Mitral and aortic valve regurgitation 09/08/2009 Aortic insufficiency EF 60% DR Zuniga -- judged to be non-surgical and mild Nephrolithiasis TALIA (obstructive sleep apnea) 2015 on CPAP and BiPAP Postoperative malabsorption 03/04/2017 Rheumatoid arthritis (HCC) was treated with mtx plaquenil in past Thyroiditis, unspecified Thyroiditis Viral pneumonia, unspecified Pneumonia Vomiting of fecal matter PAST SURGICAL HISTORY Procedure Laterality Date ANES HRNA REPAIR UPR ABD TABDL RPR DIPHRG HRNA open 2001 COLONOSCOPY FLX DX W/COLLJ SPEC WHEN PFRMD Colonoscopy COLPO OF CERVIX WBIOPSYECC 04/04/2018 ESOPHAGOGASTRODUODENOSCOPY TRANSORAL DIAGNOSTIC EGD multiple GASTRIC BYPASS HX 2017 LAPAROSCOPY SURG CHOLECYSTECTOMY Cholecystectomy, lap LIG/TRNSXJ FLP TUBE ABDL/VAG APPR UNI/BI 1996 PAST SURGICAL HISTORY OF cardiac cath REPAIR PARAESOPHAGEAL HERNIA THYROIDECTOMY TOTAL/COMPLETE 02-04-2010 ? patial/incomplete Current Outpatient Medications Medication Sig zaleplon (SONATA) 5 mg capsule Take 1 capsule if unable to fall back to sleep after waking during night as long as 4 hours remain for sleep. Do not start before May 28, 2022. cholecalciferol (VITAMIN D-3) 5,000 unit tab 2 tabs po q am for 90 days diclofenac (VOLTAREN ARTHRITIS PAIN) 1 % topical gel Apply 4 g to affected area four times daily. CPAP/BIPAP/OTHER Type .CPAPSettings into a note to see current settings/supplies/DME information. ALPRAZolam (XANAX) 0.25 mg tablet Take 0.5 tablets by mouth as needed. meclizine (ANTIVERT) 25 mg tab Take 0.5-1 tablets by mouth three times daily as needed (for dizziness.). BIPAP Lifetime supplies for BiPAP 12/8 cm H20 including mask, heated tubing, humidity, filters. Dx: G47.33 magnesium oxide (MAG-OX) 400 mg (241.3 mg magnesium) tablet Take 1 tablet by mouth once daily. promethazine (PHENERGAN) 25 mg tablet Take 25 mg by mouth four times daily as needed. thiamine (VITAMIN B-1) 100 mg tablet Take 1 tablet by mouth once daily. cyanocobalamin 1,000 mcg/mL inject 1 milliliter intramuscularly ONCE A MONTH as instructed pantoprazole DR (PROTONIX) 40 mg tablet Take 1 tablet by mouth as needed. Syringe with Needle, Safety (EASY TOUCH SHEATHLOCK SYRG-NDL) 3 mL 25 gauge x 1 syrg Weekly methotrexate injections, monthly vit b12 injections as instructed Current Facility-Administered Medications Medication Dose Route Frequency tropicamide 1 % 1 Drop (MYDRIACYL) 1 Drop BOTH EYES As Directed PHENYLephrine 2.5 % 1 Drop (AK-DILATE, OTIS-SYNEPHRINE) 1 Drop BOTH EYES As Directed fluorescein-benoxinate 0.25-0.4 % 1 Drop (FLURESS) 1 Drop BOTH EYES As Directed proparacaine 0.5 % 1 Drop (ALCAINE) 1 Drop BOTH EYES As Directed ALLERGIES Allergen Reactions Contrast Dye [Iodin* Other: See Comments Mobic [Meloxicam] Intolerance GI bleed with transfusion Motrin [Ibuprofen] Other: See Comments GI Bleed Nsaids (Non-Steroid* Unknown Prednisone Contraindication-Medical Surgical GI bleed Scopolamine Mental Status Change Paranoia, confusion, hallucination Social History Social History Narrative Not on file [place] [id number] The above information has been reviewed and confirmed with the patient. History of present illness also confirmed Exam: BP 123/71 Pulse 81 Ht 5' 1 (1.549 m) Wt 212 lb (96.2 kg) LMP 04/06/2022 (Within Days) BMI 40.06 kg/m? Thyroid: normal, midline, no palpable masses Breasts: normal, symmetric, no nipple discharge Abdomen: normal, BS, soft, NT (more content not included)...[facility]05-04-2023 History of Present illness Narrative* Opal Og, OD - 06/11/2022 12:39 PM EDT (H40.003) Glaucoma suspect of both eyes (primary encounter diagnosis) Comment: stable possible physiologic cupping Plan: monitor in 12 months FULL with ON OCT (E11.9) Type 2 diabetes mellitus without retinopathy (HCC) Comment: no npdr Plan: monitor in 12 months (H02.831, H02.834) Dermatochalasis of both upper eyelids Comment: OD > OS pt feels interfering with vision Plan: refer to Dr Suarez also evaluate RLL position appears to have lag temporally possibly 2/2 injury (H10.45) Other chronic allergic conjunctivitis of both eyes Comment: moderate papillae Plan: add patanol bid OU (H04.123) Dry eye syndrome of bilateral lacrimal glands Comment: moderate BROOK Plan: add artificial tears bid-tid OU I have confirmed and edited as necessary the relevant ophthalmic history, ROS, and the neuro exam findings as obtained by others. I have seen and examined this patient. I have discussed the case and the management of this patient's care with the Resident/Fellow, if applicable. I also have reviewed and agree with the assessment and plan as stated above and agree withall of its relevant components. Opal Og, OD June 11, 2022 12:41 PM documented in this encounterToledo [facility]05-04-2023 History of Present illness Narrative* Eleanor Kenny, DO - 06/11/2022 11:40 AM EDT CC: Annual Exam: Esme Morfin is a 46 year old 3 Para 3, LMP presents for well woman examination Family History: Denies uterine/ovarian/cervical/vaginal or vulvar cancers. MAunt Breast Cancer (?cervical cancer too) Patient is identified by name and birthdate: Yes Medications were reviewed and verified. Her health maintenance record has been reviewed and has been updated: Yes Is patient having any pain? 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: No Problem with urinary or bowel incontinence: No Menarche 9 years old Periods regular every 28 days Cramps: No Clots: No Cycles: regular Menopausal symptoms: No Contraceptive history: Yes 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 Mitral and aortic valve regurgitation 09/08/2009 Aortic insufficiency EF 60% DR Zuniga -- judged to be non-surgical and mild Nephrolithiasis TALIA (obstructive sleep apnea) 2015 on CPAP and BiPAP Postoperative malabsorption 03/04/2017 Rheumatoid arthritis (HCC) was treated with mtx plaquenil in past Thyroiditis, unspecified Thyroiditis Viral pneumonia, unspecified Pneumonia Vomiting of fecal matter PAST SURGICAL HISTORY Procedure Laterality Date ANES HRNA REPAIR UPR ABD TABDL RPR DIPHRG HRNA open 2001 COLONOSCOPY FLX DX W/COLLJ SPEC WHEN PFRMD Colonoscopy COLPO OF CERVIX WBIOPSYECC 04/04/2018 ESOPHAGOGASTRODUODENOSCOPY TRANSORAL DIAGNOSTIC EGD multiple GASTRIC BYPASS HX 2017 LAPAROSCOPY SURG CHOLECYSTECTOMY Cholecystectomy, lap LIG/TRNSXJ FLP TUBE ABDL/VAG APPR UNI/BI 1996 PAST SURGICAL HISTORY OF cardiac cath REPAIR PARAESOPHAGEAL HERNIA THYROIDECTOMY TOTAL/COMPLETE 02-04-2010 ? patial/incomplete Current Outpatient Medications Medication Sig zaleplon (SONATA) 5 mg capsule Take 1 capsule if unable to fall back to sleep after waking during night as long as 4 hours remain for sleep. Do not start before May 28, 2022. cholecalciferol (VITAMIN D-3) 5,000 unit tab 2 tabs po q am for 90 days diclofenac (VOLTAREN ARTHRITIS PAIN) 1 % topical gel Apply 4 g to affected area four times daily. CPAP/BIPAP/OTHER Type .CPAPSettings into a note to see current settings/supplies/DME information. ALPRAZolam (XANAX) 0.25 mg tablet Take 0.5 tablets by mouth as needed. meclizine (ANTIVERT) 25 mg tab Take 0.5-1 tablets by mouth three times daily as needed (for dizziness.). BIPAP Lifetime supplies for BiPAP 12/8 cm H20 including mask, heated tubing, humidity, filters. Dx:G47.33 magnesium oxide (MAG-OX) 400 mg (241.3 mg magnesium) tablet Take 1 tablet by mouth once daily. promethazine (PHENERGAN) 25 mg tablet Take 25 mg by mouth four times daily as needed. thiamine (VITAMIN B-1) 100 mg tablet Take 1 tablet by mouth once daily. cyanocobalamin 1,000 mcg/mL inject 1 milliliter intramuscularly ONCE A MONTH as instructed pantoprazole DR (PROTONIX) 40 mg tablet Take 1 tablet by mouth as needed. Syringe with Needle, Safety (EASY TOUCH SHEATHLOCK SYRG-NDL) 3 mL 25 gauge x 1 syrg Weekly methotrexate injections, monthly vit b12 injections as instructed Current Facility-Administered Medications Medication Dose Route Frequency tropicamide 1 % 1 Drop (MYDRIACYL) 1 Drop BOTH EYES As Directed PHENYLephrine 2.5 % 1 Drop (AK-DILATE, OTIS-SYNEPHRINE) 1 Drop BOTH EYES As Directed fluorescein-benoxinate 0.25-0.4 % 1 Drop (FLURESS) 1 Drop BOTH EYES As Directed proparacaine 0.5 % 1 Drop (ALCAINE) 1 Drop BOTH EYES As Directed ALLERGIES Allergen Reactions Contrast Dye [Iodin* Other: See Comments Mobic [Meloxicam] Intolerance GI bleed with transfusion Motrin [Ibuprofen] Other: See Comments GI Bleed Nsaids (Non-Steroid* Unknown Prednisone Contraindication-Medical Surgical GI bleed Scopolamine Mental Status Change Paranoia, confusion, hallucination Social History Social History Narrative Not on file [employer]ile [id number] The above information has been reviewed and confirmed with the patient. History of present illness also confirmed Exam: BP 123/71 Pulse 81 Ht 5' 1 (1.549 m) Wt 212 lb (96.2 kg) LMP 04/06/2022 (Within Days) BMI 40.06 kg/m Thyroid: normal, midline, no palpable masses Breasts: normal, symmetric, no nipple discharge Abdomen: normal, BS, soft, NT, ND External Genitalia: normal, no lesions Vagina: normal, no lesions / odor / discharge Cervix: normal, nulliparous, NT, mobile Uterus: Normal, mobile non-tender, RV Adnexae: no masses or tenderness appreciated Rectal: not performed / normal, heme negative ASSESSMENT/PROBLEM LIST/PLANS: 46 year old WF here for annual exam 1.) await pap/HPV results (prior pap/HPV LSIL/HPV not 16 or 18) Colpo 03/2018 CIN1, 2.) mammogram 3.) PMB 4.) RTO 1 year annual exam and mammogram (I spent a total of 30 minutes on the date of the service in addition to the annual exam on postmenopausal bleeding, which included preparing to see the patient, [id number] patient care, completingclinical documentation, obtaining and/or reviewing separately obtained history, performing a medically appropriate examination, counseling and educating the patient/family/caregiver, ordering medications, tests, or procedures, and care coordination (not separately reported). June 11, 2022 12:50 PM Eleanor Kenny DO documented in this encounterToledo Hospital03-27-2023 Miscellaneous Notes* Telephone Encounter - Anil Basurto - 05/04/2022 11:47 AM EDT Images from the original note were not included. documented in this encounterToledo Hospital02-21-2023 Miscellaneous Notes* Telephone Encounter - Keshawn Carpio RN - 03/31/2022 9:36 AM EST Kickfirehart message sent * Telephone Encounter - Dulce Serrano APRN.CNP - 03/31/2022 9:28 AM EST PDMP website checked and validated. All prescriptions have been APPROPRIATELY filled. No suspiciousactivity was identified. 03/31/2022 by Dulce Serrano APRN.CNP * Telephone Encounter - Keshawn Carpio RN - 03/31/2022 8:44 AM EST Patient Comment: pharmacy said sent request twice, im out of my 10 mg in 2 days so i will need my 5mg Kristin 01/08/22 VV Kalebibadonald Fov 05/13/22 VV Maggie (12/17/21 in person Maggie) IMPRESSION/PLAN: I: Generalized Anxiety Disorder Major Depressive Disorder Recurrent Moderate to Severe Probable OCD PTSD Doubt BAD II: OC Traits III: F51.04 Psychophysiological insomnia (primary encounter diagnosis) G47.33 TALIA (obstructive sleep apnea) M79.7 Fibromyalgia M06.09 Rheumatoid arthritis of multiple sites without rheumatoid factor (HCC) K21.9 Gastroesophageal reflux disease without esophagitis E88.81 Dysmetabolic syndrome X E06.3 Chronic lymphocytic thyroiditis D64.9 Anemia, unspecified type E11.9 Type 2 diabetes mellitus without complication, without long-term current use of insulin (HCC) D51.8 Vitamin B12 deficiency (dietary) anemia E66.9, Z68.38 Class 2 obesity with body mass index (BMI) of 38.0 to 38.9 in adult, unspecified obesity type, unspecified whether serious comorbidity present I08.0 Mitral and aortic valve regurgitation M15.3 Secondary osteoarthritis of multiple sites IV: 4 medical and psychiatric issues V: 33 now 53 past year PLAN: Thus, after reviewing the [facility] Electronic Medical Record and interviewing the patient virtually it is my professional opinion that the patient should continue the using the Positive Airway Pressure (PAP) device nightly at the current settings of 12/8cm. I would continue the Sonata as is for now butwould start Luvox and titrate this up for six weeks. THEN we will start a slow taper of the Sonata. The risks, benefits and common adverse effects continue to be understood by the patient. She should re engage with Dr. Lazcano for CBT I if possible Our staff will continue to monitor the [place] Automated Rx Reporting System (OARRS) on a regular basis and document that it has been reviewed. She endorsed depression, anxiety, panic and OCD symptoms. She denies all bipolar symptoms even though three of her kids have BAD and polysubstance abuse. I would also recheck labs such as Ferritin, TIBC, Fe...and Vitamin D3. He has had multiple GI bleeds prior to her surgery. She has received Fe infusions as well. She gets a Vitamin B12 IM periodically. She was on Vitamin D3 53139 international unit(s) two times a week as well. I would like for the patient to follow up with myself or one our department Advance Practice Nursesin approximately 60 days. It was a pleasure seeing you today in the [facility]. It is a privilege to assist you in your medical care. Please schedule a follow up appointment with me (or one of our Advance Practice Sleep Medicine Providers (chronic disease manager) either in person at the Main [place] [address] [facility] or virtually. The appointment telephone number for the Sleep Disorder Center is [phone]. Note that [employer] may also be used to scheduleyour next appointment. Please follow up with all of your other medical specialists and primary care provider on a regular basis. If you have any further questions regarding the diagnosis or recommendations today, please do not hesitate to send us a GuideSpark message or call my collaborating nurse Stalin at [phone] Extension #[phone]. I spent a total time of over 60 minutes on the date of the service on this case. This included preparing to see the patient by reviewing the medical record prior to examining the patient, interviewing the patient face to face in the clinic or virtually via audio and video secure [facility] technology, ordering appropriate medications/tests/procedures, completing clinical documentation of the visit, counseling and educating the patient/family/caregiver, communicating with other health careproviders as well as general care coordination. Opal Aj DO, [facility], [facility] Clinical Staff, Sleep Medicine documented in this encounterToledo Hospital12-22-2022 History of Present illness Narrative* Dimitrios Adair - 01/29/2022 9:01 AM EST CMN RECEIVED BY [employer] VIA FAX, COMPLETED, AND PLACED IN PROVIDER MAILBOX FOR SIGNATURE Dimitrios Adair, Administration Assistance 01/29/22 [employer] SENDING CMN: [employer] SIGNED AND DATED CMN, FAXED TO DME & CONFIRMATION PAGE RECEIVED: 01/30/22 documented in this encounterToledo Hospital12-15-2022 Miscellaneous Notes* Telephone Encounter - Luis F Arambula RN - 01/22/2022 11:04 AM EST Forwarded to provider to notify that labs are completed. * Telephone Encounter - Dimitrios Giovany - 01/22/2022 9:31 AM EST Received from lab results via fax. 2 pages indexed to chart. documented in this encounterToledo Hospital12-14-2022 History of Present illness Narrative* Terrell Mayo PA-C - 01/21/2022 10:41 AM EST Images from the original note were not included. DEPARTMENT OF ORTHOPAEDICS SUBJECTIVE Esme Morfin is a 46 year old female Worker's Compensation and legal considerations: none. Ms. Morfin presents for an initial visit for left knee pain Patient reports: Patient presents the office today for evaluation of left knee pain. Patient states that she has hadincreasing pain over the past 5 to 6 weeks. Denies any recent mechanism of injury but feels it is related to repetitive stair climbing and helping to care for her grandchildren. Quality: throbbing, aching, sore, sharp Location: left knee Radiates to: patella Exacerbating factors: standing, walking,kneeling, sqautting, stair climbing Alleviating factors: rest, ice, oral nsaids Associated symptoms: pain, locking ,buckling, instability, crepitus, locking Neurological complaints: denies Vascular complaints: none Ambulation: mild to moderate difficulty Hip pain: denies Back pain: denies Previous treatments: NSAIDS: motrin/aleve with mild relief Injections: denies Therapy: denies Bracing: denies Surgery: denies Analgesics: tylenol with mild relief Review of Systems: All were reviewed and found to be negative except those present in HPI. Past medical history: ACTIVE PROBLEM LIST Chronic Lymphocytic Thyroiditis Dysmetabolic Syndrome X Hx of DIABETES IN PREG-UNSPEC MALAISE AND FATIGUE NEC Obesity, Unspecified Flushing Type II Or Unspecified Type Diabetes Mellitus Without Mention of Complication, Uncontrolled Micropapillary carcinoma of thyroid (3 mm) Talia (Obstructive Sleep Apnea) GI Bleeding Secondary Osteoarthritis of Multiple Sites Vitamin B12 Deficiency (Dietary) Anemia Rheumatoid Arthritis of Multiple Sites Without Rheumatoid Factor (Hcc) Positive Anti-Ccp Test Nausea and Vomiting in Adult Morbid Obesity (Hcc) Pneumonia Postoperative Malabsorption Diarrhea, Unspecified Vomiting of Fecal Matter With Nausea Diabetes (Hcc) Fibromyalgia Mitral and Aortic Valve Regurgitation Esophageal Reflux Anemia Obesity, Class I, Bmi 30-34.9 Iron Deficiency Anemia Past surgical history: PAST SURGICAL HISTORY Procedure Laterality Date ANES HRNA REPAIR UPR ABD TABDL RPR DIPHRG HRNA open 2001 COLONOSCOPY FLX DX W/COLLJ SPEC WHEN PFRMD Colonoscopy COLPO OF CERVIX WBIOPSYECC 04/04/2018 ESOPHAGOGASTRODUODENOSCOPY TRANSORAL DIAGNOSTIC EGD multiple GASTRIC BYPASS HX 2017 LAPAROSCOPY SURG CHOLECYSTECTOMY Cholecystectomy, lap LIG/TRNSXJ FLP TUBE ABDL/VAG APPR UNI/BI 1996 PAST SURGICAL HISTORY OF cardiac cath REPAIR PARAESOPHAGEAL HERNIA THYROIDECTOMY TOTAL/COMPLETE 02-04-2010 ? patial/incomplete Family history: FAMILY HISTORY Problem Relation Age of Onset Thyroid Mother graves' s/p I 131 Glaucoma Mother Heart Father Thyroid Sister goiter. None Sister Garcia's palsy. Diabetes Maternal Grandmother Diabetes Maternal Grandfather Social history: Social History Tobacco Use Smoking status: Never Smokeless tobacco: Never Vaping Use Vaping Use: Never used Substance Use Topics Alcohol use: Not Currently Comment: Social Drug use: No Medications: Current Outpatient Medications on File Prior to Visit Medication Sig fluvoxaMINE (LUVOX) 100 mg tablet 1/2 tab po q bedtime x 2 weeks then 1 po q bedtime x 2 weeks then1 and 1/2 tab po q bedtime thereafter zaleplon (SONATA) 10 mg capsule Take 1 capsule by mouth daily at bedtime for 90 days. Do not start before January 11, 2022. zaleplon (SONATA) 5 mg capsule Take 1 capsule if unable to fall back to sleep after waking during night as long as 4 hours remain for sleep. Do not start before December 28, 2021. CPAP/BIPAP/OTHER Type .CPAPSettings into a note to see current settings/supplies/DME information. ALPRAZolam (XANAX) 0.25 mg tablet Take 0.5 tablets by mouth as needed. meclizine (ANTIVERT) 25 mg tab Take 0.5-1 tablets by mouth three times daily as needed (for dizziness.). BIPAP Lifetime supplies for BiPAP 12/8 cm H20 including mask, heated tubing, humidity, filters. Dx:G47.33 ergocalciferol 50,000 unit capsule (VITAMIN D2, DRISDOL) Take 1 capsule by mouth three times a week. magnesium oxide (MAG-OX) 400 mg (241.3 mg magnesium) tablet Take 1 tablet by mouth once daily. promethazine (PHENERGAN) 25 mg tablet Take 25 mg by mouth four times daily as needed. thiamine (VITAMIN B-1) 100 mg tablet Take 1 tablet by mouth once daily. cyanocobalamin 1,000 mcg/mL inject 1 milliliter intramuscularly ONCE A MONTH as instructed pantoprazole DR (PROTONIX) 40 mg tablet Take 1 tablet by mouth as needed. Syringe with Needle, Safety (EASY TOUCH SHEATHLOCK SYRG-NDL) 3 mL 25 gauge x 1 syrg Weekly methotrexate injections, monthly vit b12 injections as instructed No current facility-administered medications on file prior to visit. Allergies: ALLERGIES Allergen Reactions Contrast Dye [Iodin* Other: See Comments Mobic [Meloxicam] Intolerance GI bleed with transfusion Motrin [Ibuprofen] Other: See Comments GI Bleed Nsaids (Non-Steroid* Unknown Prednisone Contraindication-Medical Surgical GI bleed Scopolamine Mental Status Change Paranoia, confusion, hallucination OBJECTIVE GENERAL:no acute distress, alert, oriented x 3, appropriate mood and affect There is no height or weight on file to calculate BMI. Left KNEE: ALIGNMENT: slight varus GAIT: antalgic SKIN: normal EFFUSION: mild WARMTH: negative TENDERNESS: Patellar tendon ROM: full ROM STRENGTH: 5/5 B hip flexors, quadriceps, hamstrings, anterior tibialis, gastroc- soleus, & EHL STABILITY: Choco negative Pain with varus or valgus stress: pain with varus stress JANIS'S TEST: negative None none CREPITUS:mild PATELLO-FEMORAL TESTS: J-sign: negative Tenderness at plica: negative Patellar apprehension: negative Patello-femoral grind: negative Quadriceps tightness: negative Radha's test:negative NEUROLOGICAL EXAM: sensation intact to light touch SPN, DPN, sural, saphenous, & plantar distributions VASCULAR EXAM: popliteal & pedal pulses palpable HIP: tenderness: negative , ROM: full & pain free LUMBAR SPINE: straight leg raising sign:negative LYMPH NODES: no adenopathy palpable Review of Additional Data/Studies: Last XR Knee - Impression Only XR KNEE GENERAL 4V AP BOTH/PA BOTH/LAT/MERC BILATERAL Exam End: 12/27/2020 1:32 PM (Final result) Impression: IMPRESSION: No acute osseous abnormality. No evidence of erosive arthropathy. Management Aide: SILVIA ... All images & studies were reviewed with the patient. ASSESSMENT (M22.42) Chondromalacia patellae of left knee (primary encounter diagnosis) (M76.52) Patellar tendonitis of left knee The following plan was agreed upon: Start structured physical therapy program 1-2 times a week for 4 to 6 weeks. Recommend use of patellar tendon strap for support, comfort, protection. Start Voltaren gel 1% apply 4 g 4 times daily as needed. Start prednisone 10 mg 1 p.o. daily x5 days. Recommend cryotherapy 10 to 15 minutes 3 times daily. Follow-up in 5 weeks for recheck Terrell Mayo PA-C This note is created with the assistance of a speech-recognition program. It may contain inaccuracies such as misspellings,inaccuarate syntax or word sense that escaped review. While intending to generate a document that accurately reflects the content of the visit, no guarantee can be provided that every mistake has been identified and corrected by editing. 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 SIGNED AND DATED CMN, FAXED TO DME & CONFIRMATION PAGE RECEIVED: 01/19/22 documented in this encounterToledo Hospital12-01-2022 Nurse Note* Anil Basurto - 01/08/2022 1:00 PM EST [facility] Spoke with patient regarding upcoming virtual visit with provider. The following information was provided. Reason for visit. new symptoms consult Patient questionnaire completed. no - patient was advised this must be completed prior to the visit E-check in completed. no - patient was advised this must be completed prior to the visit Blood pressure: 127/72 mmHg on Height: 5'2 Weight: 212 lbs (self-reported). Allergies reviewed.Yes Insurance verified.Yes Medications have been reviewed/reconciled, and pharmacy has been verified.Yes Is the patient using PAP therapy (CPAP/BiPAP)? Yes [facility] - [place] phone: [phone] [facility] [place] phone: [phone] Name of PAP machine. [facility]Med PAP download status - downloaded and pasted into progress note Is patient transferring care from another Sleep Center provider? No: Are there any external records from a previous sleep provider that need to be provided prior to visit? For new patients, this includes any sleep testing records and a recent chart note from outside provider managing Sleep Disorder. No External medical records have been uploaded to patient's chart. no - patient was advised this must be completed prior to the visit Informed patient that any data from health apps (Sleep health apps - [employer], [employer], [employer], [employer], etc.) can be uploaded to [employer]ark by attaching the image; and that the image would be available in scanned documents section of [employer]. Anil Basurto [employer] RESEARCH ENGINEER documented in this encounterToledo Hospital12-01-2022 History of Present illness Narrative* Opal Aj, DO - 01/08/2022 8:06 AM EST Images from the original note were not included. [facility] New Patient Evaluation PATIENT NAME: Esme Morfin DATE OF SERVICE: January 08, 2022 CONSULTING PROVIDER: No referring provider defined for this encounter. Note: This medical visit was completed virtually via secure audio and video technology provided by the [facility]. Consent related to this virtual visit being carried out was provided via GuideSpark as well as verbally. My findings and recommendations will be transmitted electronically via shared medical records to the consulting provider. HPI: Ms. Esme Morfin is a 46 year old female with a BMI of 38.78 and a hx of Fibromyalgia, MR, AR,DM, Fe Deficiency Anemia, RA, Dysmetabolic Syndrome X, Chronic Lymphocytic Thyroiditis, GERD, Vitamin B12 Deficiency, Depression, PIETRO and OA who is referred for further evaluation of TALIA and post covid insomnia that started two years ago after covid infection. 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 The patient is currently using Bipap at 12-8 and is taking Sonata 10mg po q hs, MR 5mg po q hs; occasional Zyquil; as well as seeing Dr. Lazcano for CBT I a few times. She was last seen on 12-17-21 by MARITZA Leihg. She has reported adverse effects of confusional arousals, hallucinations, making callsand sending texts and taking photos at night without memory. Her data is attached below: Her AHI is 0.8 Telephone 12/29/2021 Neurology Opal Santana (Sheila) [place] PAP Therapy Follow Up Reason for call Conversation: PAP Therapy Follow Up (Newest Message First) December 29, 2021 Wilder Chowdhury MA KG 10:48 AM Note Additional Documentation Vitals: LMP 09/22/2020 (Within Days) Flowsheets: [facility] PDMP NARXCARE SCORES Encounter Info: Billing Info, History, Allergies, Detailed Report Communications View Encounter Conversation Summary Orders Placed None Medication Renewals and Changes None Medication List Visit Diagnoses None Problem List Her initial and middle insomnia has worsened with time. Her stress level is much higher as she losther 80K a year job, her sons house burned down and she is helping care for he, his family and otherfamily members (six grandchildren). She is depressed over her situation. She endorses panic attackswhen she is overwhelmed since her covid dx. Has body anxiety . She states her kids have an issue such as OCD, anxiety and depression. She is on Xanax prn. Family thought of possible Bipolar but she has never been dx with this. She is just overwhelmed . She lost her dad at age 63 a few years ago. Her mind does not shut off at night. She has tried Vistaril 50mg and Trazodone to 150mg. Her memory is getting worse. Her brain fog is getting worse. She at times just wants to sleep and get away from her stressors. She had Bariatric Surgery in 2018 and had many complications from the surgery. Shestarted to drink EtOH after her surgery which became an issue with her; drinking to blackouts . She has not used EtOH in over 9 months now. Now she is non coping by sleeping. She tried Ambien once as an IP. She will wake up after two hours daily and repeats. She has tried Doxepin for up to a month. Patient Questionnaires Sleep Scores Sleep Questions 10/17/2021 Reason for visit: Difficulty falling or staying asleep or poor sleep quality Average hours slept in 24 hours: - Accidents or near accidents due to drowsy driving: - [place] Sleepiness Scale 09/17/2021 09/30/2021 10/17/2021 Score Incomplete Incomplete Incomplete PROMIS CAT Sleep Disturbance 12/11/2020 09/10/2021 10/17/2021 PROMIS Sleep Disturbance T-Score 78 (severe) 72 (severe) 56 (mild) Restless Leg Syndrome 09/10/2021 Score 7 PHQ-9 09/10/2021 10/17/2021 Score 18 10 PROMIS Global Health - (T-Scores - the mean of general population = 50. 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 Mitral and aortic valve regurgitation 09/08/2009 Aortic insufficiency EF 60% DR Zuniga -- judged to be non-surgical and mild Nephrolithiasis TALIA (obstructive sleep apnea) 2015 on CPAP and BiPAP Postoperative malabsorption 03/04/2017 Rheumatoid arthritis (HCC) was treated with mtx plaquenil in past Thyroiditis, unspecified Thyroiditis Viral pneumonia, unspecified Pneumonia Vomiting of fecal matter PAST SURGICAL HISTORY Procedure Laterality Date ANES HRNA REPAIR UPR ABD TABDL RPR DIPHRG HRNA open 2001 COLONOSCOPY FLX DX W/COLLJ SPEC WHEN PFRMD Colonoscopy COLPO OF CERVIX WBIOPSYECC 04/04/2018 ESOPHAGOGASTRODUODENOSCOPY TRANSORAL DIAGNOSTIC EGD multiple GASTRIC BYPASS HX 2017 LAPAROSCOPY SURG CHOLECYSTECTOMY Cholecystectomy, lap LIG/TRNSXJ FLP TUBE ABDL/VAG APPR UNI/BI 1996 PAST SURGICAL HISTORY OF cardiac cath REPAIR PARAESOPHAGEAL HERNIA THYROIDECTOMY TOTAL/COMPLETE 02-04-2010 ? patial/incomplete ACTIVE PROBLEM LIST Chronic Lymphocytic Thyroiditis Dysmetabolic Syndrome X Hx of DIABETES IN PREG-UNSPEC MALAISE AND FATIGUE NEC Obesity, Unspecified Flushing Type II Or Unspecified Type Diabetes Mellitus Without Mention of Complication, Uncontrolled Micropapillary carcinoma of thyroid (3 mm) Talia (Obstructive Sleep Apnea) GI Bleeding Secondary Osteoarthritis of Multiple Sites Vitamin B12 Deficiency (Dietary) Anemia Rheumatoid Arthritis of Multiple Sites Without Rheumatoid Factor (Hcc) Positive Anti-Ccp Test Nausea and Vomiting in Adult Morbid Obesity (Hcc) Pneumonia Postoperative Malabsorption Diarrhea, Unspecified Vomiting of Fecal Matter With Nausea Diabetes (Hcc) Fibromyalgia Mitral and Aortic Valve Regurgitation Esophageal Reflux Anemia Obesity, Class I, Bmi 30-34.9 Iron Deficiency Anemia Allergies As of Date: 01/08/2022 Allergen Noted Reaction CONTRAST DYE [IODINE] 11/04/2020 Other: See Comments MOBIC [MELOXICAM] 08/05/2016 Intolerance MOTRIN [IBUPROFEN] 11/06/2015 Other: See Comments NSAIDS (NON-STEROIDAL ANTI-INFLAM*03/05/2016 Unknown PREDNISONE 08/05/2016 Contraindication-Medical Surgical SCOPOLAMINE 12/01/2016 Mental Status Change Fully Assessed 12/17/2021 CURRENT MEDICATIONS: [START ON 01/11/2022] zaleplon (SONATA) 10 mg capsule Take 1 capsule by mouth daily at bedtime for 90 days. Do not start before January 11, 2022. zaleplon (SONATA) 5 mg capsule Take 1 capsule if unable to fall back to sleep after waking during night as long as 4 hours remain for sleep. Do not start before December 28, 2021. CPAP/BIPAP/OTHER Type .CPAPSettings into a note to see current settings/supplies/DME information. ALPRAZolam (XANAX) 0.25 mg tablet Take 0.5 tablets by mouth as needed. meclizine (ANTIVERT) 25 mg tab Take 0.5-1 tablets by mouth three times daily as needed (for dizziness.). traZODone (DESYREL) 150 mg tablet Take 150 mg by mouth daily at bedtime. 75 mg twice a day BIPAP Lifetime supplies for BiPAP 12/8 cm H20 including mask, heated tubing, humidity, filters. Dx:G47.33 ergocalciferol 50,000 unit capsule (VITAMIN D2, DRISDOL) Take 1 capsule by mouth three times a week. magnesium oxide (MAG-OX) 400 mg (241.3 mg magnesium) tablet Take 1 tablet by mouth once daily. promethazine (PHENERGAN) 25 mg tablet Take 25 mg by mouth four times daily as needed. thiamine (VITAMIN B-1) 100 mg tablet Take 1 tablet by mouth once daily. cyanocobalamin 1,000 mcg/mL inject 1 milliliter intramuscularly ONCE A MONTH as instructed pantoprazole DR (PROTONIX) 40 mg tablet Take 1 tablet by mouth as needed. Syringe with Needle, Safety (EASY TOUCH SHEATHLOCK SYRG-NDL) 3 mL 25 gauge x 1 syrg Weekly methotrexate injections, monthly vit b12 injections as instructed Review of Systems SOCIAL HISTORY: Social History Tobacco Use Smoking status: Never Smokeless tobacco: Never Vaping Use Vaping Use: Never used Substance Use Topics Alcohol use: Not Currently Comment: Social Drug use: No FAMILY HISTORY: FAMILY HISTORY Problem Relation Age of Onset Thyroid Mother graves' s/p I 131 Glaucoma Mother Heart Father Thyroid Sister goiter. None Sister Garcia's palsy. Diabetes Maternal Grandmother Diabetes Maternal Grandfather Her dad and sister had MS. One child with probable BAD and polysubstance abuse. Three kids with SAD. One child, her youngest, tried Li, Klonopin, Haldol... Middle son with a TBI was one med as well but she cannot recall what it is. He is on Suboxone now. PHYSICAL EXAMINATION: Mental Status Examination: General: No acute distress Alertness: Alert Orientation: Oriented to person, place and time Eye contact: Good Mental attitude: Fairly positive considering Historian: Reasonably good Constitutional: Pleasant and cooperative Speech Rate: increased Speech Tone: Normal Speech Articulation: Normal Speech Spontaneity: Normal Bradyphrenia: None Loose Associations: None Thought Processes: Normal Tangential: slightly Circumstantial: slightly Abstraction: Normal Computation: Normal Suicidal thoughts: None Homicidal thoughts: None Hallucinations (Auditory, visual, gustatory): None Delusions: None EPS: None AIMS: 0 Violent ideations: None Paranoid thoughts: None Guarded: No Obsessions: None Phobias: None Judgement: Good Insight: Good Memory Recent: Good Memory Remote: Good Fund of Knowledge: Intact Mood: dysphoric Affect: a bit bland Physical Examination: Note that no supplement oxygen is in use No acute distress; consistent with age; the patient appears slightly tired at 1pm IMPRESSION/PLAN: I: Generalized Anxiety Disorder Major Depressive Disorder Recurrent Moderate to Severe Probable OCD PTSD Doubt BAD II: OC Traits III: F51.04 Psychophysiological insomnia (primary encounter diagnosis) G47.33 TALIA (obstructive sleep apnea) M79.7 Fibromyalgia M06.09 Rheumatoid arthritis of multiple sites without rheumatoid factor (HCC) K21.9 Gastroesophageal reflux disease without esophagitis E88.81 Dysmetabolic syndrome X E06.3 Chronic lymphocytic thyroiditis D64.9 Anemia, unspecified type E11.9 Type 2 diabetes mellitus without complication, without long-term current use of insulin (HCC) D51.8 Vitamin B12 deficiency (dietary) anemia E66.9, Z68.38 Class 2 obesity with body mass index (BMI) of 38.0 to 38.9 in adult, unspecified obesity type, unspecified whether serious comorbidity present I08.0 Mitral and aortic valve regurgitation M15.3 Secondary osteoarthritis of multiple sites IV: 4 medical and psychiatric issues V: 33 now 53 past year PLAN: Thus, after reviewing the [facility] Electronic Medical Record and interviewing the patient virtually it is my professional opinion that the patient should continue the using the Positive Airway Pressure (PAP) device nightly at the current settings of 12/8cm. I would continue the Sonata as is for now butwould start Luvox and titrate this up for six weeks. THEN we will start a slow taper of the Sonata. The risks, benefits and common adverse effects continue to be understood by the patient. She should re engage with Dr. Lazcano for CBT I if possible Our staff will continue to monitor the [place] Automated Rx Reporting System (OARRS) on a regular basis and document that it has been reviewed. She endorsed depression, anxiety, panic and OCD symptoms. She denies all bipolar symptoms even though three of her kids have BAD and polysubstance abuse. I would also recheck labs such as Ferritin, TIBC, Fe...and Vitamin D3. He has had multiple GI bleeds prior to her surgery. She has received Fe infusions as well. She gets a Vitamin B12 IM periodically. She was on Vitamin D3 53860 international unit(s) two times a week as well. I would like for the patient to follow up with myself or one our department Advance Practice Nursesin approximately 60 days. It was a pleasure seeing you today in the [facility]. It is a privilege to assist you in your medical care. Please schedule a follow up appointment with me (or one of our Advance Practice Sleep Medicine Providers (chronic disease manager) either in person at the [facility] or virtually. The appointment telephone number for the Sleep Disorder Center is [phone]. Note that [employer] may also be used to scheduleyour next appointment. Please follow up with all of your other medical specialists and primary care provider on a regular basis. If you have any further questions regarding the diagnosis or recommendations today, please do not hesitate to send us a GuideSpark message or call my collaborating nurse Stalin at [phone] Extension #[phone]. I spent a total time of over 60 minutes on the date of the service on this case. This included preparing to see the patient by reviewing the medical record prior to examining the patient, interviewing the patient face to face in the clinic or virtually via audio and video secure [facility] technology, ordering appropriate medications/tests/procedures, completing clinical documentation of the visit, counseling and educating the patient/family/caregiver, communicating with other health careproviders as well as general care coordination. Opal Aj DO, CBSM, ABSM Clinical Staff, Sleep [facility] [address] [place], [place] [address] documented in this encounterToledo Hospital11-24-2022 Hospital Discharge instructions Patient Education 01/01/2022 20:55:00 Knee Sprain, Adult, Nksr-mn-Dxlo Knee Sprain A knee sprain is a stretch or tear in a knee ligament. Knee ligaments are bands of tissue that connect bones in the knee to each other. Follow these instructions at home: If you have a splint or brace: Wear the splint or brace as told by your doctor. Remove it only as told by your doctor. Loosen the splint or brace if your toes tingle, get numb, or turn cold and blue. Keep the splint or brace clean. If the splint or brace is not waterproof: ?Do not let it get wet. ?Cover it with a watertight covering when you take a bath or a shower. If you have a cast: Do not stick anything inside the cast to scratch your skin. Check the skin around the cast every day. Tell your doctor about any concerns. You may put lotion on dry skin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 inaccurate syntax or word sense that escaped review. The patient is seen at the request of Dr. Lorenzo Perry for evaluation and an opinion regarding treatment. A copy of this report will remain in the shared medical record CHIEF COMPLAINT: Esme Morfin is a 46 year old Right hand dominant female who presents today for new evaluation of her right shoulder pain. HISTORY OF PRESENT ILLNESS: PAIN EVALUATION 09/19/2021 1149 Pain Level: 9 Pain Location: Shoulder-Right Description: Throbbing;Other: See comment pinching, clicking Duration Amount of Time: 8 Duration Units: Months Frequency: Continuous Intervention/Comfort measure: Medication;Reposition;Relaxation;Heat;Positioning HISTORY: Esme Morfin has complains of a month history of atraumatic right shoulder pain. She states that she has pain primarily at night. She notes pain over the anterolateral shoulder. She feels pinching and clicking and sensation of locking. She did have an MRI which demonstrates a tear of the anterior aspect of the supraspinatus tendon with subacromial bursitis. She was started in physical therapy which did not offer much relief. She takes Tylenol. She has history of GI bleed and avoids NSAID type medications. She reports an intolerance to prednisone with GI bleeding. She complains of a tremor and some pain into her trapezius. No other musculoskeletal complaints ROS: REVIEW OF SYSTEMS: Constitutional: patient denies any recent fever or significant change in weight Cardiovascular: patient denies any chest pain at rest Respiratory: patient denies any shortness of breath or cough Gastrointestinal: patient notes history of intolerance to NSAIDs Integumentary: patient denies any recent skin changes Musculoskeletal: as noted in the HPI Neurologic: as noted in the HPI Endocrine: patient is a well controlled diabetic Hematologic/Lymphatic: patient denies any easily bleeding, any recent infection and denies any recent observable lymph node enlargement Psychologic: Positive for anxiety issues SOCIAL HISTORY: Tobacco Use: Never FAMILY HISTORY: FAMILY HISTORY Problem Relation Age of Onset Thyroid Mother graves' s/p I 131 Glaucoma Mother Heart Father Thyroid Sister goiter. None Sister Garcia's palsy. Diabetes Maternal Grandmother Diabetes Maternal Grandfather ALLERGIES: ALLERGIES Allergen Reactions Contrast Dye [Iodin* Other: See Comments Mobic [Meloxicam] Intolerance GI bleed with transfusion Motrin [Ibuprofen] Other: See Comments GI Bleed Nsaids (Non-Steroid* Unknown Prednisone Contraindication-Medical Surgical GI bleed Scopolamine Mental Status Change Paranoia, confusion, hallucination PAST MEDICAL HISTORY: 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 Mitral and aortic valve regurgitation 09/08/2009 Aortic insufficiency EF 60% DR Zuniga -- judged to be non-surgical and mild Nephrolithiasis TALIA (obstructive sleep apnea) 2016 on CPAP and BiPAP Postoperative malabsorption 03/04/2017 Rheumatoid arthritis (HCC) was treated with mtx plaquenil in past Thyroiditis, unspecified Thyroiditis Viral pneumonia, unspecified Pneumonia Vomiting of fecal matter SOCIAL HISTORY: Tobacco Use: Never EXAMINATION: GENERAL: Obese ORIENTATION: Alert and oriented to person place and time HABITUS: Obese GAIT: Normal, the patient did not have trouble getting onto the exam table. right shoulder exam: skin intact no erythema, no ecchymosis, no arm swelling no irritability with PROM active equals passive ROM forward elevation 170 external rotation of 80/symmetric Pain with impingement maneuvers Weakness and pain with isometric contraction of the RC, when tested against resistance supraspinatus Positive Dickenson SLAP test Tenderness over the biceps tendon intact sensation to light touch distally good radial pulse no pain with neck ROM RADIOGRAPHS: XR Obtained today and personally reviewed by myself demonstrating negative MRI: MRIs personally reviewed. There is a full-thickness tear of the anterior aspect of the supraspinatus tendon. IMPRESSION: Encounter Diagnosis ICD-10-CM 1. Nontraumatic complete tear of right rotator cuff M75.121 2. Impingement syndrome of right shoulder M75.41 Procedures Plan: Patient with right shoulder nontraumatic full-thickness rotator cuff tear/impingement with biceps symptomatology. Treatment options were discussed with the patient. Given her age and symptomatology I would recommend consideration of surgical treatment. I went over the procedure with her in det ail including postoperative rehab and immobilization return to activities. Patient does not wish toconsider surgical treatment. I discussed the potential for progression given her age. From a conservative standpoint we discussed cortisone injection but she declines. She is going to continue with home-based physical therapy program. I discussed activity modification and icing. Given her history of GI bleed I discussed the risks with NSAIDs and would avoid them. Will follow-up as symptoms dictate. She wishes to consider surgery or injection she will let me know Ibrahima Cobb MD documented [facility]22 Miscellaneous Notes* Telephone Encounter - Tomer Sprague MA - 09/19/2021 9:57 AM EDT Images from the original note were not included. documented in this encounterToledo [facility]08-10-2022 History of Present illness Narrative* Marlene Lazcano, PhD - 09/17/2021 6:38 PM EDT [facility] CBT-Initiate Virtual Group September 17, 2021 Time: 60 min [id number]: Virtual Group Psychotherapy The CBT-Initiate virtual group is a one-time group that serves as the start of Cognitive BehavioralTherapy for Insomnia (CBT-I) . The following topics were introduced and discussed amongst the group: -Psychoeducation on basic healthy sleep, how sleep changes with age, the 2 Process Model, and the 3-P Model of Insomnia -What is Insomnia & What is CBT-I -Sleep Hygiene -Stimulus Control -Psychoeducation on sleep medications Pt paid good attention during the group, and asked several questions. Their understanding of the material presented appeared good. Pt did not complete sleep logs, not reviewed in session. ASSESSMENT: No Data Recorded DIAGNOSIS: PIETRO Chronic Insomnia GOALS/OBJECTIVES/INTERVENTIONS: Pt was provided the following handouts from today's class Sleep Psychoeducation Sleep Hygiene & Stimulus Control Sleep Diaries 2. All participants were encouraged to implement Sleep Hygiene & Stimulus Control techniques, as well as track their sleep via Sleep Diaries 3. Pt is scheduled for follow-up with BSM provider who completed initial evaluation for remaining sessions of CBT-I Margie Donato PsyD Health Nutrition Associate Marlene Lazcano, PhD, [facility] Psychologist ([place] License [id number]) Behavioral Sleep Medicine documented in this encounterToledo Hospital08-10-2022 History of Present illness Narrative* Aristeo Jimenez APRN.DRILL PRESS HAND - 09/17/2021 12:53 PM EDT Subjective HPI Esme Morfin is a 46 year old female who presents after ERT in the lobby of our building. Was across in different building for MRI of brain. Long standing issues with balance, neuropathy, anxiety, insomnia, BPPV and neuro ordered MRI. Today, she had vertigo when lying down for MRI. [place] she could continue but had spinning sensation in the MRI machine. Was able to complete the testing. Got up after to get dressed and still didn't feel stable. Walked from building to car to leave and when turned her head to back out had sig dizziness again. [place] like she was unsafe so pulled in front of our building for help. Vitals stable during ERT. Had not eaten today which is no uncommon for herand was up at 3:30am to take her son to work. Currently feeing some better, still with some spinning with head motion like looking down. No nausea, no HO, unilateral weakness or speech issues. Denies CP, pressure, palps, SOB, GRAY. Review of Systems All other systems reviewed and are negative. BP 130/60 Pulse 80 LMP 09/22/2020 (Within Days) SpO2 100% Objective Physical Exam Constitutional: Appearance: Normal appearance. HENT: Right Ear: External ear normal. Left Ear: External ear normal. Ears: Comments: Cerumen bilateral ear canals Nose: Nose normal. Mouth/Throat: Mouth: Mucous membranes are moist. Pharynx: Oropharynx is clear. Eyes: Extraocular Movements: Extraocular movements intact. Right eye: No nystagmus. Left eye: No nystagmus. Conjunctiva/sclera: Conjunctivae normal. Pupils: Pupils are equal, round, and reactive to light. Neck: Vascular: No carotid bruit. Cardiovascular: Rate and Rhythm: Normal rate and regular rhythm. Pulmonary: Effort: Pulmonary effort is normal. Breath sounds: Normal breath sounds. Abdominal: General: Bowel sounds are normal. Palpations: Abdomen is soft. Lymphadenopathy: Cervical: No cervical adenopathy. Skin: General: Skin is warm and dry. Neurological: Mental Status: She is alert and oriented to person, place, and time. Cranial Nerves: Cranial nerves 2-12 are intact. Gait: Gait abnormal. Comments: Gait unstable, but she states is chronic Psychiatric: Mood and Affect: Mood normal. ASSESSMENT/PLAN: 1. Vertigo - ICD9: 780.4, ICD10: R42 - no S/S of cardiac, respiratory, CVA. - Hx of BPPV and has history. Used meclizine with good effect in the past - complex neuro history already seeing specialists and awaiting brain MRI - Recommend to NOT drive home and [facility] and handed off to her boyfriend. - keep follows with neuro/PCP as prior scheduled. - to ER if worsening symptoms Aristeo Jimenez APRN.DRILL PRESS HAND documented in this encounterToledo Hospital08-10-2022 History of Present illness Narrative* Thaddeus Zamorano RN - 09/17/2021 12:36 PM EDT [facility] Remote Sites Emergency Response Form. NOT TO BE USED AT MAIN CAMPUS Complete this report when the Emergency Medical Response is activated (911 calls/EmergencyTransportto the ED) or when a Code Sheet is utilized in the care of a patient (i.e., ASC) Date of the Event: 09/17/21 Time of the Event:1215 pm Was emergency response activated? (Local EMS/Emergency Department) YES Location of the Incident: [facility] ([facility]) Reason/Chief Complaint for Emergency Call (Check all that apply): Mental Status Change/Dizziness/Syncope ERT Provider: Dr Kothari COURSE OF TREATMENT: ERT paged at 12:15 pm today in lobby in wheelchair for patient who felt dizzy after receiving MRI contrast. Denies syncope. +Lightheadedness. Denies N/V/D. Patient unable to drive self home due to feeling dizzy. VS: 154/110 HR: 85. Patient will be seen by Provider- Aristeo Jimenez CNP for eval/assessment of the above. Chart Faxed to PCP with return confirmation. CPR Initiated-Chest Compressions and/or Rescue Breathing Provided: NO Facility AED Used-Automatic External Defibrillator: NO EMS AED Used-Automatic External Defibrillator: NO Patient Disposition: No transport required Human Capital Analyst information: Thaddeus Zamorano RN documented in this encounterToledo Hospital08-10-2022 History of Present illness Narrative* DALI Krause) - 09/17/2021 11:46 AM EDT Radiology Service Progress Note DATE OF SERVICE: September 17, 2021 TIME: 11:46 AM PATIENT IDENTITY VERIFICATION COMPLETED USING TWO (2) STANDARD IDENTIFIERS: Name and Date of confirmed by patient verbally. FALL SCREENING: Has the patient had 2 falls in the last year or 1 fall with injury or currently using an Ambulatory Assistive Device (Walker, Cane, Wheelchair, Crutches, etc.)? No PATIENT GENDER DATA: Female. status: : No status: NO. PATIENT RELEVANT IMPLANT DATA REVIEWED: Yes ALLERGIES: Reviewed and unchanged CONTRAST ALLERGY: NO. EXAM: MRI - CONTRAST TYPE: GROUP II PERIPHERAL IV DATA: Ambulatory: A peripheral IV was started in the Right antecubital site with a Angio cath: 24 gauge. RADIOLOGY DEPARTMENT: MR; Exam(s) Completed: Head: Routine Brain SIGNATURE: DALI Krause) PATIENT NAME: Esme Morfin DATE: September 17, 2021 TIME: 11:46 AM documented in this encounterToledo Hospital08-08-2022 Miscellaneous Notes* Telephone Encounter - Sun Collins RN - 09/15/2021 11:09 AM EDT Called pt back to tell her that I had the schedulers put her down for 09/22 @ 2:00 virtual with Mahogany. * Telephone Encounter - Sun Collins RN - 09/15/2021 9:56 AM EDT Images from the original note were not included. Called pt, She states she takes Kraafz84 mg before bed & then sometimes will take 5 mg if she wakes up after falling asleep. She said that she is working with her sleep psychiatrist to get off meds all together, but that does not seem to be working. Pt states it is hard for her to get to in person appts, because she does not drive. Pt also states that she recently lost her job. Pt has in person with Maggie in December, she is wondering if she can do a virtual with Mahogany now to discuss her meds. * Telephone Encounter - Bella Barker APRN.FRANK, PhD - 09/11/2021 8:35 AM EDT PDMP website checked and validated. Concern for confusion about medication administration and dosing. 09/11/2021 by Bella Barker APRN.DRILL PRESS HAND, PhD Pt received fifteen 10 mg tablets on 08/29/2021, received thirty 5 mg tablets on 08/08/[address] Lazcano's note reviewed, pt reports taking Sonata 10 mg QHS with sonata 5 mg PRN, in addition to melatonin and OTC ZZZquil. Authorized refill of thirty 10 mg tablets today. Please contact patient for earlier appointment with Gayatri Reyes APRN or other sleep CHACHO/MD, in personor virtual, to reassess medication use. Bella Barker APRN.DRILL PRESS HAND, PhD * Telephone Encounter - Cata Cerda RN - 09/11/2021 8:21 AM EDT Please see pt My Chart message kristin 03/20/21 VV fov 12/17/21 in person w/ DRILL PRESS HAND IMPRESSION / PLAN: Esme Morfin is a 45 year old female with h/o DM, RA, depression/anxiety who developed sleep initiation and sleep maintenance insomnia post Covid infection; now s/p 2nd covid infection. Also related are change from 3rd to second shift at work, anxiety and depression. When she wakes at night and cannot get back to sleep, she is taking trazodone. - Continue sonata 10 mg. - May take sonata 5 mg during night as long as there are an additional 4 hours for sleep. This is abetter option than trazodone since sonata has a 1/2 life of 1 hour as compared to 3-14 hours with trazodone. Encouraged to not take every night as there are some nights when she is able to fall back to sleep without medication. Severe TALIA with hypovenitlation AHI 58 increasing to 108 in REM with O2 sats in 70s is benefiting from PAP Therapy. She will be completing nocturnal pulse oximetry tonight. - [facility]: Provide supplies for BiPAP 12/8 cm H20. - Follow-up with AERIAL SURVEY TECHNICIAN for in person visit as this is a requirement when receiving controlled medications. Mahogany Reyes APRN.DRILL PRESS HAND documented in this encounterToledo Hospital08-05-2022 Miscellaneous Notes* Telephone Encounter - Cata Cerda RN - 09/12/2021 7:08 AM EDT Called and left VM for pt to clarify medications. Call back info provided and call back requested. documented in this encounterToledo Hospital08-03-2022 History of Present illness Narrative* Marlene Lazcano, PhD - 09/10/2021 4:35 PM EDT Behavioral Sleep Medicine Consult Marlene Lazcano, Ph.D., [facility] -- Psychologist ([place] License [id number]) Due to the federal emergency declaration and the need for ongoing mental health services, the following visit was completed virtually and informed consent obtained orally to reduce the risk of COVID-19 exposure. Oral consent to services related to virtual visits was obtained after information was sent via SocialSambat or read to patient if MyChart not available Contact Method: Facetime (zoom would not connect) Patient Confirmed Address: in her car, not driving and parked Patient Confirmed Telephone #: [phone] Patient was seen for an initial evaluation. All information is from patient report and review of medical record except when noted. This evaluation is NOT intended for forensic, disability or child custody purposes. Informed consent was discussed and signed by the patient. PRESENT: Joe Morfin is a 46 year old year old female who presents for a BSM evaluation for insomnia, referred by [facility] Sleep Disorders Physician - Dr Fariha Acevedo HPI: Ms. Morfin reported sleep onset & sleep maintenance insomnia that began after her first time infected with COVID in 2019 Described my brain doesn't shut off -- and no matter how exhausted I am I can't fall asleep on my own (without meds. She described being worried about her sleep all day and night Today she only has 1 sleep pill left and has been worrying all day about tonight's sleep. She cannot have refill until she has an in person appointment Other long-haul COVID Sx: anxiety, panic attacks, balance problems She was drinking a lot of alcohol prior to COVID; became coping mechanism. Has not drank in 5 mos Sleep medications: Sonata, melatonin, zzquil (occasionally). She takes her sleep medications early to help with anxiety (around 9PM). Goals for treatment: reduce or eliminate medication use; have my brain shut off at night Ms. Morfin has not been previously evaluated and treated by [facility]. PMH: ACTIVE PROBLEM LIST Chronic Lymphocytic Thyroiditis Dysmetabolic Syndrome X Hx of DIABETES IN PREG-UNSPEC MALAISE AND FATIGUE NEC Obesity, Unspecified Flushing Type II Or Unspecified Type Diabetes Mellitus Without Mention of Complication, Uncontrolled Micropapillary carcinoma of thyroid (3 mm) Talia (Obstructive Sleep Apnea) GI Bleeding Secondary Osteoarthritis of Multiple Sites Vitamin B12 Deficiency (Dietary) Anemia Rheumatoid Arthritis of Multiple Sites Without Rheumatoid Factor (Hcc) Positive Anti-Ccp Test Nausea and Vomiting in Adult Morbid Obesity (Hcc) Pneumonia Postoperative Malabsorption Diarrhea, Unspecified Vomiting of Fecal Matter With Nausea Diabetes (Hcc) Fibromyalgia Mitral and Aortic Valve Regurgitation Esophageal Reflux Anemia Obesity, Class I, Bmi 30-34.9 Iron Deficiency Anemia CURRENT MEDICATIONS: Current Outpatient Medications Medication Sig traZODone (DESYREL) 150 mg tablet Take 150 mg by mouth daily at bedtime. 75 mg twice a day BIPAP Lifetime supplies for BiPAP 12/8 cm H20 including mask, heated tubing, humidity, filters. Dx:G47.33 ergocalciferol 50,000 unit capsule (VITAMIN D2, DRISDOL) Take 1 capsule by mouth three times a week. metoprolol tartrate, short acting, (LOPRESSOR) 25 mg tablet Take 1 tablet by mouth twice daily. meloxicam (MOBIC) 15 mg tablet Take 1 tablet by mouth once daily. (Patient not taking: Reported on 04/15/2021 ) CPAP/BIPAP/OTHER Type .CPAPSettings into a note to see current settings/supplies/DME information. CPAP/BIPAP/OTHER Type .CPAPSettings into a note to see current settings/supplies/DME information. magnesium oxide (MAG-OX) 400 mg (241.3 mg magnesium) tablet Take 1 tablet by mouth once daily. promethazine (PHENERGAN) 25 mg tablet Take 25 mg by mouth four times daily as needed. traMADol (ULTRAM) 50 mg tablet TAKE 1 TABLET BY MOUTH EVERY 6 (SIX) - EIGHT HOURS NEEDED FOR PAIN (Patient not taking: Reported on 04/15/2021) doxepin capsule 10 mg Take 10 mg by mouth twice daily. (Patient not taking: Reported on 04/15/2021 ) thiamine (VITAMIN B-1) 100 mg tablet Take 1 tablet by mouth once daily. cyanocobalamin 1,000 mcg/mL inject 1 milliliter intramuscularly ONCE A MONTH as instructed pantoprazole DR (PROTONIX) 40 mg tablet Take 1 tablet by mouth as needed. Syringe with Needle, Safety (EASY TOUCH SHEATHLOCK SYRG-NDL) 3 mL 25 gauge x 1 syrg Weekly methotrexate injections, monthly vit b12 injections as instructed No current facility-administered medications for this visit. What is the most distressing/disturbing about your sleep patterns? is characterized by difficulty falling asleep, difficulty staying asleep Estimated average total sleep time per night? 8-12 hrs HISTORY OF SLEEP DIFFICULTIES When did the problem start? 2020 Identifiable precipitating factors: COVID infections Course of sleep problems since onset (i.e., progressive worsening over time, worse with high stress): worsening over time, but better with medication Parasomnias: none Narcolepsy: No Sleep Apnea: yes, wears biPAP and said it is very helpful Restless Leg Syndrome: No CURRENT DAYTIME SCHEDULE (focus on recent typical week) Current job: not currently working; was fired this year Have you ever worked 2nd or 3rd shift?: yes How long? When was the last time?: 2nd shift & 3rd shift the entire time --feels like sleep was not ideal but she was more resilient Both of her adult sons are having problems CURRENT SLEEP HABITS (focus on recent typical week) Beginning of Sleep Period: Pre-bedtime activities (last hour before going to bed)? --experiences a lot anxiety in early evening --will take her sleep medications very early to use for anxiety (9PM) --boyfrienbebe returns home at 11PM Time to Bed: 9 PM Time of Lights Out: Same time Average time to fall asleep: quickly What do you do when you can't fall asleep? She is using sleep as a relief/escape for anxiety Pre-sleep mental activity (worry, focused on problems, fear of insufficient sleep noises in the environment)? Yes, severe Physical tension? yes Conditioned arousal? no --she notes she can text other people without knowing Middle of the Night: Number of awakenings after sleep onset: waking up 3-4 hrs later Total time awake after sleep onset: can be hours What happens when awake in middle of the night? (thoughts/behaviors) worry that she will not go back to sleep and takes extra medication Nightmares? No Night eating? eating upon awakening during the night End of Night/Morning: Has had to help son to get to work for past 2 weeks She has been getting up at 330AM, drives 40 min to pick son up, 25 min to get him to work, then home by 515AM She will try to go back to sleep when she gets home, usually sleeps until 1030AM SLEEP DIARY Pt did not complete sleep logs, not reviewed in session. JACKIE No Data Recorded No flowsheet data found. ESS [place] Sleepiness Scale Score: 0 [0-5 = Lower Normal Daytime Sleepiness] [place] Sleepiness Scale 09/10/2021 Score 0 (No daytime sleepiness) DAYTIME IMPACT of Sleep -- tired but wired Mood: Anxious Fatigue:yes Work/Academic Impact? yes Concentration/Memory Impact? yes Socialization/Relationships? yes Naps? does not take naps. Unintentional dozing? No PAST TREATMENT Current sleep medications/aids (Dose, manner used - at bedtime, nightly, prn): Sonata 10mg for initiation + 5mg in middle of the night PRN) Melatonin and OTC Sleep Aids (zzquil) -- beginning of the night & middle of the night if needed Patient is interested in discontinuing sleep medications Past medications/sleep aids: doxepin (had severe neurological side effects), trazodone Behavioral strategies or changes made to improve sleep? none Past trial of CBT-I? (Can ask about specific strategies including stimulus control, sleep restriction, get details of when and how long tried): No COMORBID PSYCH ISSUES/PSYCH HISTORY History of Comorbid Psychiatric Issues? Anxiety Disorder and Panic Disorder Treatment: She sees Gloria Snell [facility] in wellness for therapy Has tried a couple of anti-depressants for anxiety -- she didn't feel like She has 7 Xanax for every 2 weeks She often takes sleep medication early in evening to help with anxiety Family Psychiatric History: Information about family psychiatric history not available at this time Pt denied past/current Hx of Bipolar Disorder, manic episodes, or a/v hallucinations PIETRO PIETRO-7 Total Score: 21 [15-21 = Severe Anxiety] Pt current reports several symptoms of anxiety including feeling nervous, anxious, or on edge, perceived no control over worry, worrying about a wide range of things, difficulty relaxing, concentration impairment, restlessness, muscle tension and difficulty sleeping PIETRO - 7 SCORES 11/08/2020 09/10/2021 PIETRO-7 Score 21 21 PHQ PHQ-9 Score: 18 [15-19 = Moderately Severe Depression] not at all on item #9 Pt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 Resolved Date Morbid obesity due to excess calories 08/31/2016 12/01/2016 Overview: Added automatically from request for surgery [id number] Hernia, paraesophageal 08/31/2016 7 Overview: Added automatically from request for surgery [id number] documented as of this encounter (statuses as of 08/04/2021) [facility] illness Narrative* Problem Noted Date Resolved Date Morbid obesity due to excess calories 08/31/2016 12/01/2016 Overview: Added automatically from request for surgery [id number] Hernia, paraesophageal 08/31/2016 7 Overview: Added automatically from request for surgery [id number] documented as of this encounter (statuses as of 08/07/2021) [facility] of [facility] illness Narrative* Problem Noted Date Resolved Date Morbid obesity due to excess calories 08/31/2016 12/01/2016 Overview: Added automatically from request for surgery [id number] Hernia, paraesophageal 08/31/2016 7 Overview: Added automatically from request for surgery [id number] documented as of this encounter (statuses as of 08/25/2021) [facility] of [facility] illness Narrative* Problem Noted Date Resolved Date Morbid obesity due to excess calories 08/31/2016 12/01/2016 Overview: Added automatically from request for surgery [id number] Hernia, paraesophageal 08/31/2016 7 Overview: Added automatically from request for surgery [id number] documented as of this encounter (statuses as of 09/05/2021) [facility] History of Past illness Narrative* Problem Noted Date Resolved Date Morbid obesity due to excess calories 08/31/2016 12/01/2016 Overview: Added automatically from request for surgery [id number] Hernia, paraesophageal 08/31/2016 7 Overview: Added automatically from request for surgery [id number] documented as of this encounter (statuses as of 09/10/2021) [facility] History of Past illness Narrative* Problem Noted Date Resolved Date Morbid obesity due to excess calories 08/31/2016 12/01/2016 Overview: Added automatically from request for surgery [id number] Hernia, paraesophageal 08/31/2016 7 Overview: Added automatically from request for surgery [id number] documented as of this encounter (statuses as of 09/12/2021) [facility] History of Past illness Narrative* Problem Noted Date Resolved Date Morbid obesity due to excess calories 08/31/2016 12/01/2016 Overview: Added automatically from request for surgery [id number] Hernia, paraesophageal 08/31/2016 7 Overview: Added automatically from request for surgery [id number] documented as of this encounter (statuses as of 09/15/2021) [facility] History of Past illness Narrative* Problem Noted Date Resolved Date Morbid obesity due to excess calories 08/31/2016 12/01/2016 Overview: Added automatically from request for surgery [id number] Hernia, paraesophageal 08/31/2016 7 Overview: Added automatically from request for surgery [id number] documented as of this encounter (statuses as of 09/16/2021) [facility] History of Past illness Narrative* Problem Noted Date Resolved Date Morbid obesity due to excess calories 08/31/2016 12/01/2016 Overview: Added automatically from request for surgery [id number] Hernia, paraesophageal 08/31/2016 7 Overview: Added automatically from request for surgery [id number] documented as of this encounter (statuses as of 09/17/2021) [facility] History of Past illness Narrative* Problem Noted Date Resolved Date Morbid obesity due to excess calories 08/31/2016 12/01/2016 Overview: Added automatically from request for surgery [id number] Hernia, paraesophageal 08/31/2016 7 Overview: Added automatically from request for surgery [id number] documented as of this encounter (statuses as of 09/17/2021) [facility] History of Past illness Narrative* Problem Noted Date Resolved Date Morbid obesity due to excess calories 08/31/2016 12/01/2016 Overview: Added automatically from request for surgery [id number] Hernia, paraesophageal 08/31/2016 7 Overview: Added automatically from request for surgery [id number] documented as of this encounter (statuses as of 09/17/2021) [facility] History of Past illness Narrative* Problem Noted Date Resolved Date Morbid obesity due to excess calories 08/31/2016 12/01/2016 Overview: Added automatically from request for surgery [id number] Hernia, paraesophageal 08/31/2016 7 Overview: Added automatically from request for surgery [id number] documented as of this encounter (statuses as of 09/19/2021) [facility] History of Past illness Narrative* Problem Noted Date Resolved Date Morbid obesity due to excess calories 08/31/2016 12/01/2016 Overview: Added automatically from request for surgery [id number] Hernia, paraesophageal 08/31/2016 7 Overview: Added automatically from request for surgery [id number] documented as of this encounter (statuses as of 09/19/2021) [facility] History of Past illness Narrative* Problem Noted Date Resolved Date Morbid obesity due to excess calories 08/31/2016 12/01/2016 Overview: Added automatically from request for surgery [id number] Hernia, paraesophageal 08/31/2016 7 Overview: Added automatically from request for surgery [id number] documented as of this encounter (statuses as of 10/17/2021) [facility] History of Past illness Narrative* Problem Noted Date Resolved Date Morbid obesity due to excess calories 08/31/2016 12/01/2016 Overview: Added automatically from request for surgery [id number] Hernia, paraesophageal 08/31/2016 7 Overview: Added automatically from request for surgery [id number] documented as of this encounter (statuses as of 11/06/2021) [facility] History of Past illness Narrative* Problem Noted Date Resolved Date Morbid obesity due to excess calories 08/31/2016 12/01/2016 Overview: Added automatically from request for surgery [id number] Hernia, paraesophageal 08/31/2016 7 Overview: Added automatically from request for surgery [id number] documented as of this encounter (statuses as of 12/01/2021) [facility] History of Past illness Narrative* Problem Noted Date Resolved Date Morbid obesity due to excess calories 08/31/2016 12/01/2016 Overview: Added automatically from request for surgery [id number] Hernia, paraesophageal 08/31/2016 7 Overview: Added automatically from request for surgery [id number] documented as of this encounter (statuses as of 12/12/2021) [facility] History of Past illness Narrative* Problem Noted Date Resolved Date Morbid obesity due to excess calories 08/31/2016 12/01/2016 Overview: Added automatically from request for surgery [id number] Hernia, paraesophageal 08/31/2016 7 Overview: Added automatically from request for surgery [id number] documented as of this encounter (statuses as of 12/18/2021) [facility] History of Past illness Narrative* Problem Noted Date Resolved Date Morbid obesity due to excess calories 08/31/2016 12/01/2016 Overview: Added automatically from request for surgery [id number] Hernia, paraesophageal 08/31/2016 7 Overview: Added automatically from request for surgery [id number] documented as of this encounter (statuses as of 12/29/2021) [facility] History of Past illness Narrative* Problem Noted Date Resolved Date Morbid obesity due to excess calories 08/31/2016 12/01/2016 Overview: Added automatically from request for surgery [id number] Hernia, paraesophageal 08/31/2016 7 Overview: Added automatically from request for surgery [id number] documented as of this encounter (statuses as of 01/08/2022) [facility] History of Past illness Narrative* Problem Noted Date Resolved Date Morbid obesity due to excess calories 08/31/2016 12/01/2016 Overview: Added automatically from request for surgery [id number] Hernia, paraesophageal 08/31/2016 7 Overview: Added automatically from request for surgery [id number] documented as of this encounter (statuses as of 01/21/2022) [facility] History of Past illness Narrative* Problem Noted Date Resolved Date Morbid obesity due to excess calories 08/31/2016 12/01/2016 Overview: Added automatically from request for surgery [id number] Hernia, paraesophageal 08/31/2016 7 Overview: Added automatically from request for surgery [id number] documented as of this encounter (statuses as of 01/22/2022) [facility] History of Past illness Narrative* Problem Noted Date Resolved Date Morbid obesity due to excess calories 08/31/2016 12/01/2016 Overview: Added automatically from request for surgery [id number] Hernia, paraesophageal 08/31/2016 7 Overview: Added automatically from request for surgery [id number] documented as of this encounter (statuses as of 01/31/2022) [facility] History of Past illness Narrative* Problem Noted Date Resolved Date Morbid obesity due to excess calories 08/31/2016 12/01/2016 Overview: Added automatically from request for surgery [id number] Hernia, paraesophageal 08/31/2016 7 Overview: Added automatically from request for surgery [id number] documented as of this encounter (statuses as of 01/31/2022) [facility] History of Past illness Narrative* Problem Noted Date Resolved Date Morbid obesity due to excess calories 08/31/2016 12/01/2016 Overview: Added automatically from request for surgery [id number] Hernia, paraesophageal 08/31/2016 7 Overview: Added automatically from request for surgery [id number] documented as of this encounter (statuses as of 03/31/2022) [facility] History of Past illness Narrative* Problem Noted Date Resolved Date Morbid obesity due to excess calories 08/31/2016 12/01/2016 Overview: Added automatically from request for surgery [id number] Hernia, paraesophageal 08/31/2016 7 Overview: Added automatically from request for surgery [id number] documented as of this encounter (statuses as of 05/04/2022) [facility] History of Past illness Narrative* Problem Noted Date Resolved Date Morbid obesity due to excess calories 08/31/2016 12/01/2016 Overview: Added automatically from request for surgery [id number] Hernia, paraesophageal 08/31/2016 7 Overview: Added automatically from request for surgery [id number] documented as of this encounter (statuses as of 06/11/2022) [facility] History of Past illness Narrative* Problem Noted Date Resolved Date Morbid obesity due to excess calories 08/31/2016 12/01/2016 Overview: Added automatically from request for surgery [id number] Hernia, paraesophageal 08/31/2016 7 Overview: Added automatically from request for surgery [id number] documented as of this encounter (statuses as of 06/19/2022) [facility] History of Past illness Narrative* Problem Noted Date Resolved Date Morbid obesity due to excess calories 08/31/2016 12/01/2016 Overview: Added automatically from request for surgery [id number] Hernia, paraesophageal 08/31/2016 7 Overview: Added automatically from request for surgery [id number] documented as of this encounter (statuses as of 06/22/2022) [facility] History of Past illness Narrative* Problem Noted Date Resolved Date Morbid obesity due to excess calories 08/31/2016 12/01/2016 Overview: Added automatically from request for surgery [id number] Hernia, paraesophageal 08/31/2016 7 Overview: Added automatically from request for surgery [id number] documented as of this encounter (statuses as of 06/23/2022) [facility] History of Past illness Narrative* Problem Noted Date Resolved Date Morbid obesity due to excess calories 08/31/2016 12/01/2016 Overview: Added automatically from request for surgery [id number] Hernia, paraesophageal 08/31/2016 7 Overview: Added automatically from request for surgery [id number] documented as of this encounter (statuses as of 06/23/2022) [facility] History of Past illness Narrative* Problem Noted Date Resolved Date Morbid obesity due to excess calories 08/31/2016 12/01/2016 Overview: Added automatically from request for surgery [id number] Hernia, paraesophageal 08/31/2016 7 Overview: Added automatically from request for surgery [id number] documented as of this encounter (statuses as of 06/23/2022) [facility] History of Past illness Narrative* Problem Noted Date Resolved Date Morbid obesity due to excess calories 08/31/2016 12/01/2016 Overview: Added automatically from request for surgery [id number] Hernia, paraesophageal 08/31/2016 7 Overview: Added automatically from request for surgery [id number] documented as of this encounter (statuses as of 06/30/2022) [facility] History of Past illness Narrative* Problem Noted Date Resolved Date Morbid obesity due to excess calories 08/31/2016 12/01/2016 Overview: Added automatically from request for surgery [id number] Hernia, paraesophageal 08/31/2016 7 Overview: Added automatically from request for surgery [id number] documented as of this encounter (statuses as of 07/05/2022) [facility] History of Past illness Narrative* Problem Noted Date Resolved Date Morbid obesity due to excess calories 08/31/2016 12/01/2016 Overview: Added automatically from request for surgery [id number] Hernia, paraesophageal 08/31/2016 7 Overview: Added automatically from request for surgery [id number] documented as of this encounter (statuses as of 07/07/2022) [facility] History of Past illness Narrative* Problem Noted Date Resolved Date Morbid obesity due to excess calories 08/31/2016 12/01/2016 Overview: Added automatically from request for surgery [id number] Hernia, paraesophageal 08/31/2016 7 Overview: Added automatically from request for surgery [id number] documented as of this encounter (statuses as of 07/09/2022) [facility] History of Past illness Narrative* Problem Noted Date Resolved Date Morbid obesity due to excess calories 08/31/2016 12/01/2016 Overview: Added automatically from request for surgery [id number] Hernia, paraesophageal 08/31/2016 7 Overview: Added automatically from request for surgery [id number] documented as of this encounter (statuses as of 07/14/2022) [facility] History of Past illness Narrative* Problem Noted Date Diagnosed Date Resolved Date Morbid obesity due to excess calories 08/31/2016 12/01/2016 Overview: Added automatically from request for surgery [id number] Hernia, paraesophageal 08/31/201612/01 Overview: Added automatically from request for surgery [id number] documented as of this encounter (statuses as of 09/08/2022) [facility] History of Past illness Narrative* Problem Noted Date Diagnosed Date Resolved Date Morbid obesity due to excess calories 08/31/2016 12/01/2016 Overview: Added automatically from request for surgery [id number] Hernia, paraesophageal 08/31/201612/01 Overview: Added automatically from request for surgery [id number] documented as of this encounter (statuses as of 09/11/2022) [facility] History of Past illness Narrative* Problem Noted Date Diagnosed Date Resolved Date Morbid obesity due to excess calories 08/31/2016 12/01/2016 Overview: Added automatically from request for surgery [id number] Hernia, paraesophageal 08/31/201612/01 Overview: Added automatically from request for surgery [id number] documented as of this encounter (statuses as of 09/16/2022) [facility] History of Past illness Narrative* Problem Noted Date Diagnosed Date Resolved Date Morbid obesity due to excess calories 08/31/2016 12/01/2016 Overview: Added automatically from request for surgery [id number] Hernia, paraesophageal 08/31/201612/01 Overview: Added automatically from request for surgery [id number] documented as of this encounter (statuses as of 09/18/2022) [facility] History of Past illness Narrative* Problem Noted Date Diagnosed Date Resolved Date Morbid obesity due to excess calories 08/31/2016 12/01/2016 Overview: Added automatically from request for surgery [id number] Hernia, paraesophageal 08/31/201612/01 Overview: Added automatically from request for surgery [id number] documented as of this encounter (statuses as of 09/29/2022) [facility] History of Past illness Narrative* Problem Noted Date Diagnosed Date Resolved Date Morbid obesity due to excess calories 08/31/2016 12/01/2016 Overview: Added automatically from request for surgery [id number] Hernia, paraesophageal 08/31/201612/01 Overview: Added automatically from request for surgery [id number] documented as of this encounter (statuses as of 09/30/2022) [facility] History of Past illness Narrative* Problem Noted Date Diagnosed Date Resolved Date Morbid obesity due to excess calories 08/31/2016 12/01/2016 Overview: Added automatically from request for surgery [id number] Hernia, paraesophageal 08/31/201612/01 Overview: Added automatically from request for surgery [id number] documented as of this encounter (statuses as of 09/30/2022) [facility] History of Past illness Narrative* Problem Noted Date Diagnosed Date Resolved Date Morbid obesity due to excess calories 08/31/2016 12/01/2016 Overview: Added automatically from request for surgery [id number] Hernia, paraesophageal 08/31/201612/01 Overview: Added automatically from request for surgery [id number] documented as of this encounter (statuses as of 10/02/2022) [facility] History of Past illness Narrative* Problem Noted Date Diagnosed Date Resolved Date Morbid obesity due to excess calories 08/31/2016 12/01/2016 Overview: Added automatically from request for surgery [id number] Hernia, paraesophageal 08/31/201612/01 Overview: Added automatically from request for surgery [id number] documented as of this encounter (statuses as of 10/07/2022) [facility] History of Past illness Narrative* Problem Noted Date Diagnosed Date Resolved Date Morbid obesity due to excess calories 08/31/2016 12/01/2016 Overview: Added automatically from request for surgery [id number] Hernia, paraesophageal 08/31/201612/01 Overview: Added automatically from request for surgery [id number] documented as of this encounter (statuses as of 10/08/2022) [facility] note* Diagnosis NO SHOW- Primary documented in this encounter [facility] note* Diagnosis Generalized anxiety disorder- Primary documented in this encounter [facility] note* Diagnosis NO SHOW- [facility] [place] [facility] Diagnosis Chronic insomnia Insomnia, unspecified documented in this encounter [facility] note* Diagnosis Other insomnia [facility] [place] [facility]* Diagnosis Generalized anxiety disorder- Primary [facility] [place] [facility]* Diagnosis Traumatic complete tear of right rotator cuff, subsequent encounter- Primary [facility] [place] [facility] Diagnosis Chronic insomnia- Primary Insomnia, unspecified PIETRO (generalized anxiety disorder) Generalized anxiety disorder Post-acute sequelae of COVID-19 (PASC) [facility] [place] [facility] Diagnosis Other insomnia [facility] [place] [facility]* Diagnosis Right shoulder pain, unspecified chronicity- Primary [facility] [place] [facility]* Diagnosis Vertigo- Primary Dizziness and giddiness [facility] [place] [facility] Diagnosis PIETRO (generalized anxiety disorder)- Primary Generalized anxiety disorder Chronic insomnia Insomnia, unspecified [facility] [place] [facility]* Diagnosis Nontraumatic complete tear of right rotator cuff- Primary Impingement syndrome of right shoulder Other affections of shoulder region, not elsewhere classified documented in this encounter [facility] note* Diagnosis Chronic insomnia- Primary Insomnia, unspecified PIETRO (generalized anxiety disorder) Generalized anxiety disorder Post-acute sequelae of COVID-19 (PASC) [facility] [place] [facility]* Diagnosis Other insomnia [facility] [place] [facility]* Diagnosis TALIA (obstructive sleep apnea)- Primary Obstructive sleep apnea (adult) (pediatric) Chronic insomnia Insomnia, unspecified PIETRO (generalized anxiety disorder) Generalized anxiety disorder Fibromyalgia Mylagia and myositis, unspecified Vitamin B12 deficiency (dietary) anemia Other vitamin B12 deficiency anemia Rheumatoid arthritis of multiple sites without rheumatoid factor (HCC) Rheumatoid arthritis Dysmetabolic syndrome X Dysmetabolic Syndrome X Class 2 obesity with body mass index (BMI) of 38.0 to 38.9 in adult, unspecified obesity type, unspecified whether serious comorbidity present Other insomnia [facility] Diagnosis Psychophysiological insomnia- Primary Persistent disorder of initiating or maintaining sleep TALIA (obstructive sleep apnea) Obstructive sleep apnea (adult) (pediatric) Fibromyalgia Mylagia and myositis, unspecified Rheumatoid arthritis of multiple sites without rheumatoid factor (HCC) Rheumatoid arthritis Gastroesophageal reflux disease without esophagitis Esophageal reflux Dysmetabolic syndrome X Dysmetabolic Syndrome X Chronic lymphocytic thyroiditis Anemia, unspecified type Type 2 diabetes mellitus without complication, without long-term current use of insulin (HCC) Vitamin B12 deficiency (dietary) anemia Other vitamin B12 deficiency anemia Class 2 obesity with body mass index (BMI) of 38.0 to 38.9 in adult, unspecified obesity type, unspecified whether serious comorbidity present Mitral and aortic valve regurgitation Mitral valve insufficiency and aortic valve insufficiency Secondary osteoarthritis of multiple sites Osteoarthrosis involving, or with mention of more than one site, but not specified as generalized, multiple sites Deficiency anemia Unspecified deficiency anemia [facility] Diagnosis Chondromalacia patellae of left knee- Primary Chondromalacia of patella Patellar tendonitis of left knee [facility] Diagnosis Chronic insomnia Insomnia, unspecified Other insomnia [facility] [place] [facility] Diagnosis 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 Preglaucoma, unspecified Type 2 diabetes mellitus without retinopathy (HCC) Type II or unspecified type diabetes mellitus without mention of complication, not stated as uncontrolled Dermatochalasis of both upper eyelids Other chronic allergic conjunctivitis of both eyes Dry eye syndrome of bilateral lacrimal glands Tear film insufficiency, unspecified [facility] Diagnosis PVC (premature ventricular contraction)- Primary Other premature beats Palpitations TALIA (obstructive sleep apnea) Obstructive sleep apnea (adult) (pediatric) Localized edema Edema [facility] Diagnosis Encounter for gynecological examination with abnormal finding- Primary Routine gynecological examination History of cervical dysplasia Personal history of cervical dysplasia Encounter for screening mammogram for malignant neoplasm of breast Other screening mammogram Postmenopausal bleeding Urinary frequency [facility] Diagnosis Dermatochalasis of both upper eyelids- Primary Myogenic ptosis of bilateral eyelids Facial rhytids Other specified hypertrophic and atrophic condition of skin [facility]* Diagnosis Type 2 diabetes mellitus with hypoglycemia without coma, without long-term current use of insulin (HCC)- Primary Hx of gastric bypass Bariatric surgery status [facility] Diagnosis Hx of gastric bypass- Primary Bariatric surgery status Type 2 diabetes mellitus with hypoglycemia without coma, without long-term current use of insulin (HCC) [facility] Diagnosis Postmenopausal bleeding [facility] Diagnosis Rheumatoid arthritis of multiple sites without rheumatoid factor (HCC) Rheumatoid arthritis Post-acute sequelae of COVID-19 (PASC) Arthralgia, unspecified joint History of rheumatoid arthritis Personal history of arthritis Instability of right shoulder joint Other joint derangement, not elsewhere classified, shoulder region Right shoulder pain, unspecified chronicity [facility] No-show for appointment- [facility] Diagnosis Hx of papillary thyroid carcinoma- Primary Personal history of malignant neoplasm of thyroid Vitamin D insufficiency Unspecified vitamin D deficiency Hypoglycemia Hypoglycemia, unspecified Diabetes mellitus type 2 (HCC) [facility] Diagnosis Postmenopausal bleeding- Primary Ovarian cyst, left Other and unspecified ovarian cyst Abnormal endometrial ultrasound Nonspecific (abnormal) findings on radiological and other examination of genitourinary organs Thickened endometrium Nonspecific (abnormal) findings on radiological and other examination of genitourinary organs History of cervical dysplasia Personal history of cervical dysplasia [facility] Pre-op examination- Primary Preoperative examination, unspecified Morbid obesity (HCC) Morbid obesity TALIA (obstructive sleep apnea) Obstructive sleep apnea (adult) (pediatric) Type 2 diabetes mellitus without complication, without long-term current use of insulin (HCC) Postmenopausal bleeding Abnormal endometrial ultrasound Nonspecific (abnormal) findings on radiological and other examination of genitourinary organs Thickened endometrium Nonspecific (abnormal) findings on radiological and other examination of genitourinary organs [facility] Palpitations- Primary Postmenopausal bleeding Abnormal endometrial ultrasound Nonspecific (abnormal) findings on radiological and other examination of genitourinary organs Thickened endometrium Nonspecific (abnormal) findings on radiological and other examination of genitourinary organs documented in this encounter [facility] note* Diagnosis Preop cardiovascular exam- Primary Pre-operative cardiovascular examination Prediabetes Other abnormal glucose TALIA (obstructive sleep apnea) Obstructive sleep apnea (adult) (pediatric) Obesity, Class II, BMI 35-39.9 Obesity, unspecified documented in this encounter [facility]* Diagnosis Type 2 diabetes mellitus with hypoglycemia without coma, without long-term current use of insulin ([facility])- Primary Class 3 severe obesity with serious comorbidity and body mass index (BMI) of 40.0 to 44.9 in adult, unspecified obesity type ([facility]) documented in this encounter [facility] note* Diagnosis Encounter for screening mammogram for malignant neoplasm of breast Other screening mammogram documented in this encounter [facility]* Diagnosis Type 2 diabetes mellitus with hypoglycemia without coma, without long-term current use of insulin ([facility]) documented in this encounter [facility] note* Diagnosis Cognitive complaints- Primary Other signs and symptoms involving cognition History of gastric bypass Bariatric surgery status Sleep apnea, unspecified type Postmenopausal bleeding Abnormal endometrial ultrasound Nonspecific (abnormal) findings on radiological and other examination of genitourinary organs Thickened endometrium Nonspecific (abnormal) findings on radiological and other examination of genitourinary organs documented in this encounter [facility] note* Diagnosis TALIA (obstructive sleep apnea)- Primary Obstructive sleep apnea (adult) (pediatric) Chronic insomnia Insomnia, unspecified Psychophysiological insomnia Persistent disorder of initiating or maintaining sleep Rheumatoid arthritis of multiple sites without rheumatoid factor (HCC) Rheumatoid arthritis Type 2 diabetes mellitus without complication, without long-term current use of insulin (HCC) Anemia, unspecified type Chronic lymphocytic thyroiditis Fibromyalgia Mylagia and myositis, unspecified Obesity, Class I, BMI 30-34.9 Obesity, unspecified Gastroesophageal reflux disease without esophagitis Esophageal reflux Type 2 diabetes mellitus without retinopathy (HCC) Type II or unspecified type diabetes mellitus without mention of complication, not stated as uncontrolled Dysmetabolic syndrome X Dysmetabolic Syndrome X Postmenopausal bleeding Abnormal endometrial ultrasound Nonspecific (abnormal) findings on radiological and other examination of genitourinary organs Thickened endometrium Nonspecific (abnormal) findings on radiological and other examination of genitourinary organs [facility] [place] Diagnosis History of sleep apnea- Primary Personal history of other specified diseases Cognitive complaints Other signs and symptoms involving cognition Postmenopausal bleeding Abnormal endometrial ultrasound Nonspecific (abnormal) findings on radiological and other examination of genitourinary organs Thickened endometrium Nonspecific (abnormal) findings on radiological and other examination of genitourinary organs [facility] [place] [facility]* Diagnosis Type 2 diabetes mellitus with hyperglycemia, without long-term current use of insulin (HCC)- Primary Type 2 diabetes mellitus with hypoglycemia without coma, without long-term current use of insulin ([facility]) Class 3 severe obesity with serious comorbidity and body mass index (BMI) of 40.0 to 44.9 in adult, unspecified obesity type ([facility]) History of dumping syndrome TALIA (obstructive sleep apnea) Obstructive sleep apnea (adult) (pediatric) Postmenopausal bleeding Abnormal endometrial ultrasound Nonspecific (abnormal) findings on radiological and other examination of genitourinary organs Thickened endometrium Nonspecific (abnormal) findings on radiological and other examination of genitourinary organs [facility] [place] [facility]* Diagnosis Rheumatoid arthritis of multiple sites without rheumatoid factor ([facility]) Rheumatoid arthritis Positive anti-CCP test Other and unspecified nonspecific immunological findings Abnormal weight gain S/P bariatric surgery Bariatric surgery status Obesity, Class II, BMI 35-39.9 Obesity, unspecified Vitamin B12 deficiency Other B-complex deficiencies Vitamin D deficiency Unspecified vitamin D deficiency Anemia, unspecified type Gastroesophageal reflux disease, unspecified whether esophagitis present Postmenopausal bleeding Abnormal endometrial ultrasound Nonspecific (abnormal) findings on radiological and other examination of genitourinary organs Thickened endometrium Nonspecific (abnormal) findings on radiological and other examination of genitourinary organs [facility] [place] [facility]* Diagnosis Chronic neck pain Cervicalgia Radiculopathy, cervical region Brachial neuritis or radiculitis nos Chronic right shoulder pain Pain in joint, shoulder region Postmenopausal bleeding Abnormal endometrial ultrasound Nonspecific (abnormal) findings on radiological and other examination of genitourinary organs Thickened endometrium Nonspecific (abnormal) findings on radiological and other examination of genitourinary organs [facility] [place] [facility]* Diagnosis Hx of papillary thyroid carcinoma Personal history of malignant neoplasm of thyroid Postmenopausal bleeding Abnormal endometrial ultrasound Nonspecific (abnormal) findings on radiological and other examination of genitourinary organs Thickened endometrium Nonspecific (abnormal) findings on radiological and other examination of genitourinary organs documented [facility] [place] [facility]* Diagnosis Chronic right shoulder pain Pain in joint, shoulder region Postmenopausal bleeding Abnormal endometrial ultrasound Nonspecific (abnormal) findings on radiological and other examination of genitourinary organs Thickened endometrium Nonspecific (abnormal) findings on radiological and other examination of genitourinary organs [facility] Diagnosis Pre-op evaluation- Primary Preoperative examination, unspecified TALIA (obstructive sleep apnea) Obstructive sleep apnea (adult) (pediatric) Gastroesophageal reflux disease without esophagitis Esophageal reflux Type 2 diabetes mellitus without complication, without long-term current use of insulin ([facility]) Micropapillary carcinoma of thyroid (3 mm) Malignant neoplasm of thyroid gland Anxiety Anxiety state, unspecified Class 2 severe obesity due to excess calories with serious comorbidity and body mass index (BMI) of 38.0 to 38.9 in adult Postmenopausal bleeding Abnormal endometrial ultrasound Nonspecific (abnormal) findings on radiological and other examination of genitourinary organs Thickened endometrium Nonspecific (abnormal) findings on radiological and other examination of genitourinary organs [facility] [place] [facility]* Diagnosis 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 Vitamin D insufficiency Unspecified vitamin D deficiency Postmenopausal bleeding Abnormal endometrial ultrasound Nonspecific (abnormal) findings on radiological and other examination of genitourinary organs Thickened endometrium Nonspecific (abnormal) findings on radiological and other examination of genitourinary organs documented [facility] this encounter [facility] [place] noteNo assessment information availableScci [facility] Work Phone: Evaluation note* Diagnosis Abnormal uterine bleeding due to endometrial polyp- Primary Counseling for control, intrauterine device General counseling for initiation of other contraceptive measures Postmenopausal bleeding [facility] this [facility] [place] [facility]* Diagnosis Dysphagia, unspecified type- Primary [facility] [place] [facility]* Diagnosis Cervical radiculopathy- Primary Brachial neuritis or radiculitis nos Acute pain of left shoulder Neck pain Cervicalgia documented [facility] this [facility] [place] [facility]* Diagnosis Nausea- Primary Nausea alone Abdominal pain, unspecified abdominal location documented [facility] this [facility] [place] [facility]* Diagnosis Nausea- Primary Nausea alone documented [facility] this [facility] [place] [facility]* Diagnosis Nausea Nausea alone documented [facility] this [facility] [place] [facility]* Diagnosis Type 2 diabetes mellitus with hypoglycemia without coma, without long-term current use of insulin (HCC)- Primary [facility] [place] [facility]* Diagnosis Dysphagia, unspecified type- Primary Nontraumatic complete tear of right rotator cuff- Primary [facility] [place] [facility]* Diagnosis Dysphagia, unspecified type Nontraumatic complete tear of right rotator cuff- Primary documented [facility] this [facility] [place] [facility]* Diagnosis Dysphagia, unspecified type [facility] Narrative No data available for this section [facility] Discharge instructions No data available for this section [facility] note No data available for this section [facility] Center[facility] referral (narrative)* Diagnostic Procedure Only (Routine) - Pending Review Specialty Diagnoses / Procedures Referred By Contac t Referred To Contact XR IMAGING Diagnoses Right shoulder pain, unspecified chronicity Procedures XR SHOULDER ORTHO 4V AP/TRUE AP/LAT/OUTLET RIGHT RADEX SHOULDER COMPLETE MINIMUM 2 VIEWS Ibrahima Cobb MD [address] [place] [address] Xr Imaging Referral ID Status Reason Start Date Expiration Date Visits Requested Visits Authorized [id number] Pending Review Auto-Generat ed Referral 09/16/2021 10/16/2022 1 1 [facility] for referral (narrative)* Outpatient Procedure (Routine) - Closed Specialty Diagnoses / Procedures Referred By Contac t Referred To Contact [facility] Diagnoses Palpitations Procedures ECG COMPLETE ECG ROUTINE ECG W/LEAST 12 LDS W/I&R Luis F Barraza, AERIAL SURVEY TECHNICIAN.[employer]LL [employer] HAND [address] [place] [address] [facility] [place] [address] [place] [address] Referral ID Status Reason Start Date Expiration Date V isits Requested Visits Authorized [id number] Closed Auto-Generate d Referral 06/17/2022 02/07/2023 1 1 [facility] for referral (narrative)* Diagnostic Procedure Only (Routine) - Authorized Specialty Diagnoses / Procedures Referred By Contac t Referred To Contact [facility] Diagnoses Postmenopausal bleeding Procedures PELVIC US WHI US PELVIC NONOBSTETRIC REAL-[place] [address] [place] [address] [facility] [address] [place] [address] Referral ID Status Reason Start Date Expiration Date Visits Requested Visits Authorized [id number] Authorized Auto-Generat ed Referral 06/11/2022 02/07/2023 1 1 * Diagnostic Procedure Only (Routine) - Pending Review Specialty Diagnoses / Procedures Referred By Kalina burciaga Referred To Contact [facility] Diagnoses Encounter for screening mammogram for malignant neoplasm of breast Procedures JUS SCREENING W SURINDER SCREENING DIGITAL BREAST TOMOSYNTHESIS BI SCREENING MAMMOGRAPHY BI 2-[place] [address] [place] [address] [facility] [address] [place] [id number] Referral ID Status Reason Start Date Expiration Date Visits Requested Visits Authorized [id number] Pending Review Auto-Generat ed Referral 06/11/2022 07/11/2023 1 1 [facility] for referral (narrative)* Diagnostic Procedure Only (Routine) - Closed Specialty Diagnoses / Procedures Referred By Kalina burciaga Referred To Contact XR IMAGING Diagnoses Rheumatoid arthritis of multiple sites without rheumatoid factor (HCC) Post-acute sequelae of COVID-19 (PASC) Arthralgia, unspecified joint History of rheumatoid arthritis Instability of right shoulder joint Right shoulder pain, unspecified chronicity Procedures XR SACROILIAC JOINTS 2V AP PELVIS/FERGUESON X-RAY SACRO-ILIAC JOINTS MIN 3 VIEW Lorenzo Perry DO [address] [place] [address] Xr Imaging Referral ID Status Reason Start Date Expiration Date V isits Requested Visits Authorized [id number] Closed Auto-Generate d Referral 12/26/2020 01/25/2022 1 1 * Diagnostic Procedure Only (Routine) - Closed Specialty Diagnoses / Procedures Referred By Contac t Referred To Contact XR IMAGING Diagnoses Rheumatoid arthritis of multiple sites without rheumatoid factor (HCC) Post-acute sequelae of COVID-19 ([facility]ASC) Arthralgia, unspecified joint History of rheumatoid arthritis Instability of right shoulder joint Right shoulder pain, unspecified chronicity Procedures XR LUMBAR GENERAL 3V AP/LAT/L5-S1 X-RAY L-S SPINE AP/LATERAL Lorenzo Perry DO [address] [place], [place] [id number] Xr Imaging Referral ID Status Reason Start Date Expiration Date V isits Requested Visits Authorized [id number] Closed Auto-Generate d Referral 12/26/2020 01/25/2022 1 1 * Diagnostic Procedure Only (Routine) - Closed Specialty Diagnoses / Procedures Referred By Contac t Referred To Contact XR IMAGING Diagnoses Rheumatoid arthritis of multiple sites without rheumatoid factor (HCC) Post-acute sequelae of COVID-19 (PASC) Arthralgia, unspecified joint History of rheumatoid arthritis Instability of right shoulder joint Right shoulder pain, unspecified chronicity Procedures XR THORACIC GENERAL 3V AP/LAT/SWIMMERS X-RAY THORACIC SPINE AP/LAT W/SWIM Lorenzo Perry DO [address] [place], [place] [id number] Xr Imaging Referral ID Status Reason Start Date Expiration Date V isits Requested Visits Authorized [id number] Closed Auto-Generate d Referral 12/26/2020 01/25/2022 1 1 * Diagnostic Procedure Only (Routine) - Closed Specialty Diagnoses / Procedures Referred By Contac t Referred To Contact XR IMAGING Diagnoses Rheumatoid arthritis of multiple sites without rheumatoid factor (HCC) Post-acute sequelae of COVID-19 (PASC) Arthralgia, unspecified joint History of rheumatoid arthritis Instability of right shoulder joint Right shoulder pain, unspecified chronicity Procedures XR HIP GENERAL 3V PELV/AP/LAT RIGHT RADEX HIP UNILATERAL WITH PELVIS 2-3 VIEWS Lorenzo Perry DO [address] [place], [place] [id number] Xr Imaging Referral ID Status Reason Start Date Expiration Date V isits Requested Visits Authorized [id number] Closed Auto-Generate d Referral 12/26/2020 01/25/2022 1 1 * Diagnostic Procedure Only (Routine) - Closed Specialty Diagnoses / Procedures Referred By Contac t Referred To Contact XR IMAGING Diagnoses Rheumatoid arthritis of multiple sites without rheumatoid factor (HCC) Post-acute sequelae of COVID-19 (PASC) Arthralgia, unspecified joint History of rheumatoid arthritis Instability of right shoulder joint Right shoulder pain, unspecified chronicity Procedures XR KNEE GENERAL 4V AP BOTH/PA BOTH/LAT/MERC BILATERAL KNEE AP-WGT/LAT/MERCHANT Lorenzo Perry DO [address] [place], [place] [id number] Xr Imaging Referral ID Status Reason Start Date Expiration Date V isits Requested Visits Authorized [id number] Closed Auto-Generate d Referral 12/26/2020 01/25/2022 1 1 * Diagnostic Procedure Only (Routine) - Closed Specialty Diagnoses / Procedures Referred By Contac t Referred To Contact XR IMAGING Diagnoses Rheumatoid arthritis of multiple sites without rheumatoid factor (HCC) Post-acute sequelae of COVID-19 (PASC) Arthralgia, unspecified joint History of rheumatoid arthritis Instability of right shoulder joint Right shoulder pain, unspecified chronicity Procedures XR HAND/WRIST SURVEY ARTHRITIS 1V PA BILATERAL JOINT SURVEY,SINGLE VIEW Lorenzo Perry DO [address] [place], [place] [id number] Xr Imaging Referral ID Status Reason Start Date Expiration Date V isits Requested Visits Authorized [id number] Closed Auto-Generate d Referral 12/26/2020 01/25/2022 1 1 * Diagnostic Procedure Only (Routine) - Closed Specialty Diagnoses / Procedures Referred By Contac t Referred To Contact XR IMAGING Diagnoses Rheumatoid arthritis of multiple sites without rheumatoid factor (HCC) Post-acute sequelae of COVID-19 (PASC) Arthralgia, unspecified joint History of rheumatoid arthritis Instability of right shoulder joint Right shoulder pain, unspecified chronicity Procedures XR FOOT GENERAL 3V AP/LAT/OBL BILATERAL X-RAY FOOT MINIMUM 3 VIEWS Lorenzo Perry DO [address] [place] [address] Xr Imaging Referral ID Status Reason Start Date Expiration Date V isits Requested Visits Authorized [id number] Closed Auto-Generate d Referral 12/26/2020 01/25/2022 1 1 [facility] for referral (narrative)* Diagnostic Procedure Only (Routine) - Pending Review Specialty Diagnoses / Procedures Referred By Kalina burciaga Referred To Contact [facility] IMAGING Diagnoses Hx of papillary thyroid carcinoma Procedures US CERVICAL LYMPH NODE MAPPING US SOFT TISSUE HEAD & NECK REAL TIME IMGE Lizzie Norman MD [address] [place] [address] [place] [address] [place] [address] Referral ID Status Reason Start Date Expiration Date Visits Requested Visits Authorized [id number] Pending Review Auto-Generat ed Referral 09/30/2022 10/30/2023 1 1 [facility] for referral (narrative)* Diagnostic Procedure Only (Routine) - Pending Review Specialty Diagnoses / Procedures Referred By Kalina t Referred To Contact [facility] Diagnoses Ovarian cyst, left Procedures PELVIC US WHI US PELVIC NONOBSTETRIC REAL-[place] [address] [place] [address] [facility] [address] [place] [address] Referral ID Status Reason Start Date Expiration Date Visits Requested Visits Authorized [id number] Pending Review Auto-Generat ed Referral 10/02/2022 10/02/2023 1 1 [facility] for referral (narrative)* Outpatient Procedure (Routine) - Pending Review Specialty Diagnoses / Procedures Referred By Contac t Referred To Contact [facility] [place] Diagnoses Prediabetes Preop cardiovascular exam TALIA (obstructive sleep apnea) Obesity, Class II, BMI 35-39.9 Procedures ECG COMPLETE ECG ROUTINE ECG W/LEAST 12 LDS W/I&[place] [address] [place] [address] [address] Referral ID Status Reason Start Date Expiration Date Visits Requested Visits Authorized [id number] Pending Review Auto-Generat ed Referral 10/23/2022 10/23/2023 1 1 [facility] for referral (narrative)* Diagnostic Procedure Only (Routine) - Closed Specialty Diagnoses / Procedures Referred By Contac t Referred To Contact XR IMAGING Diagnoses Chronic right shoulder pain Procedures XR SHOULDER GENERAL 3V OR MORE AP/TRUE AP/OTHER RT X-RAY SHOULDER COMPLET MIN 2 VIEWS Latanya Clifford APRN.CNP [address] [place] [address] Xr Imaging [facility] Referral ID Status Reason Start Date Expiration Date V isits Requested Visits Authorized [id number] Closed Auto-Generate d Referral 11/21/2020 12/21/2021 1 1 * Diagnostic Procedure Only (Routine) - Closed Specialty Diagnoses / Procedures Referred By Contac t Referred To Contact XR IMAGING Diagnoses Chronic neck pain Radiculopathy, cervical region Procedures XR CERV OTHER 4V AP/LAT/OBL X-RAY NECK MINIMUM 4 VIEWS Latanya Clifford APRN.DRILL PR[employer] HAND [address] [place] [address] [place] [address] Referral ID Status Reason Start Date Expiration Date V isits Requested Visits Authorized [id number] Closed Auto-Generate d Referral 11/21/2020 12/21/2021 1 1 [facility] for referral (narrative)* Diagnostic Procedure Only (Routine) - Closed Specialty Diagnoses / Procedures Referred By Contac t Referred To Contact US IMAGING Diagnoses Hx of papillary thyroid carcinoma Procedures US CERVICAL LYMPH NODE MAPPING US SOFT TISSUE HEAD & NECK REAL TIME IMGE SHERINE Leavitt, Lizzie Leiva MD [address] [place] [address] [place] [address] [facility] [place] [address] Referral ID Status Reason Start Date Expiration Date V isits Requested Visits Authorized [id number] Closed Auto-Generate d Referral 10/23/2022 02/07/2023 1 1 [facility] for referral (narrative)* Diagnostic Procedure Only (Routine) - Pending Review Specialty Diagnoses / Procedures Referred By Contac t Referred To Contact XR IMAGING Diagnoses Dysphagia, unspecified type Procedures XR ESOPHAGRAM RADIOLOGIC EXAM ESOPHAGUS SINGLE CONTRAST STUDY Adilene Ordoñez APRN.[employer] [address] [place] [address] [place] [address] Referral ID Status Reason Start Date Expiration Date Visits Requested Visits Authorized [id number] Pending Review Auto-Generat ed Referral 03/22/2023 04/20/2024 1 1 * Diagnostic Procedure Only (Routine) - Pending Review Specialty Diagnoses / Procedures Referred By Contac t Referred To Contact XR IMAGING Diagnoses Dysphagia, unspecified type Procedures XR MODIFIED BARIUM SWALLOW W SPEECH THERAPY RADIOLOGIC EXAM SWALLOW FUNCTION CONTRAST STUDY Adilene Ordoñez APRN.[employer] HAND [address] [place] [address] Xr Imaging [facility] Referral ID Status Reason Start Date Expiration Date Visits Requested Visits Authorized [id number] Pending Review Auto-Generat ed Referral 03/22/2023 04/20/2024 1 1 * Outpatient Procedure (Routine) - Pending Review Specialty Diagnoses / Procedures [facility] Diagnoses Dysphagia, unspecified type Procedures EGD - THERAPEUTIC, EUS, OR TUBE INTERVENTIONS EGD DILATION GASTRIC/DUODENAL STRICTURE Adilene Ordoñez APRN.[employer] HAND [address] [place] [id number] [facility] [place] [address] [place] [address] Referral ID Status Reason Start Date Expiration Date Visits Requested Visits Authorized [id number] Pending Review Auto-Generat ed Referral 03/22/2023 03/22/2024 1 1 [facility] for referral (narrative)* Diagnostic Procedure Only (Routine) - Closed Specialty Diagnoses / Procedures [facility] To Contact XR IMAGING Diagnoses Dysphagia, unspecified type Procedures XR MODIFIED BARIUM SWALLOW W SPEECH THERAPY RADIOLOGIC EXAM SWALLOW FUNCTION CONTRAST STUDY Adilene Ordoñez APRN.CNP [address] [place] [address] Xr Imaging [id number] Referral ID Status Reason Start Date Expiration Date V isits Requested Visits Authorized [id number] Closed Auto-Generate d Referral 02/08/2023 02/08/2024 1 1 [facility] for referral (narrative)* Outpatient Procedure (Routine) - Closed Specialty Diagnoses / Procedures [facility] Diagnoses Dysphagia, unspecified type Procedures EGD - THERAPEUTIC, EUS, OR TUBE INTERVENTIONS EGD DILATION GASTRIC/DUODENAL STRICTURE Adilene Ordoñez APRN.DRILL PRESS HAND [address] [place] [id number] [facility] [address] [place] [address] Referral ID Status Reason Start Date Expiration Date V isits Requested Visits Authorized [id number] Closed Auto-Generate d Referral 04/15/2023 02/08/2024 1 1 [facility] for visit Narrative* Diagnostic Procedure Only (Routine) - Closed Specialty Diagnoses / Procedures Referred By Contac t Referred To Contact [facility] Diagnoses Postmenopausal bleeding Procedures PELVIC US WHI US PELVIC NONOBSTETRIC REAL-[place] [address] [place] [id number] [address] [address] Referral ID Status Reason Start Date Expiration Date V isits Requested Visits Authorized [id number] Closed Auto-Generate d Referral 06/11/2022 02/07/2023 1 1 [facility] for visit Narrative* Diagnostic Procedure Only (Routine) - Closed Specialty Diagnoses / Procedures Referred By Contac t Referred To Contact XR IMAGING Diagnoses Rheumatoid arthritis of multiple sites without rheumatoid factor (HCC) Post-acute sequelae of COVID-19 (PASC) Arthralgia, unspecified joint History of rheumatoid arthritis Instability of right shoulder joint Right shoulder pain, unspecified chronicity Procedures XR SACROILIAC JOINTS 2V AP PELVIS/FERGUESON X-RAY SACRO-ILIAC JOINTS MIN 3 VIEW Lorenzo Perry, DO [address] [place] [address] Xr Imaging Referral ID Status Reason Start Date Expiration Date V isits Requested Visits Authorized [id number] Closed Auto-Generate d Referral 12/26/2020 01/25/2022 1 1 [facility] for visit Narrative* Diagnostic Procedure Only (Routine) - Closed Specialty Diagnoses / Procedures Referred By Contac t Referred To Contact XR IMAGING Diagnoses Chronic right shoulder pain Procedures XR SHOULDER GENERAL 3V OR MORE AP/TRUE AP/OTHER RT X-RAY SHOULDER COMPLET MIN 2 VIEWS Latanya Clifford APRN.DRILL PRESS HAND [address] [place] [address] [place] [address] Referral ID Status Reason Start Date Expiration Date V isits Requested Visits Authorized [id number] Closed Auto-Generate d Referral 11/21/2020 12/21/2021 1 1 [facility] for visit Narrative* Diagnostic Procedure Only (Routine) - Closed Specialty Diagnoses / Procedures Referred By Contac t Referred To Contact US IMAGING Diagnoses Hx of papillary thyroid carcinoma Procedures US CERVICAL LYMPH NODE MAPPING US SOFT TISSUE HEAD & NECK REAL TIME IMGE Lizzie Norman MD [address] [place] [address] [place] [address] [place] [address] Referral ID Status Reason Start Date Expiration Date V isits Requested Visits Authorized [id number] Closed Auto-Generate d Referral 10/23/2022 02/07/2023 1 1 [facility] for visit Narrative* Outpatient Procedure (Routine) - Closed Specialty Diagnoses / Procedures Referred By Contjina t Referred To Contact [facility] Diagnoses Dysphagia, unspecified type Procedures EGD - THERAPEUTIC, EUS, OR TUBE INTERVENTIONS EGD DILATION GASTRIC/DUODENAL STRICTURE Adilene Ordoñez, AERIAL SURVEY TECHNICIAN.DRILL PRESS HAND [address] [place] [address] [facility] [address] [place] [address] Referral ID Status Reason Start Date Expiration Date V isits Requested Visits Authorized [id number] Closed Auto-Generate d Referral 04/15/2023 02/08/2024 1 1 [facility] Summary Purpose Family History No Family History Records FoundNo Family History Records FoundNo Family History Records FoundNo Family History Records FoundNo Family History Records Found No data available for this section No data available for this section No data available for this section No Family History Records FoundNo Family History Records FoundNo Family History Records FoundNo Family History Records Found Advance Directives No Advanced Directives Records FoundDocuments on File Type Date Recorded 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 Advance Directive(s) Advance Directive(s) 10/30/2020 7:21 AM Advance Directive(s) 10/13/2017 7:41 AM Advance Directive(s) 12/06/2016 9:28 PM Advance Directive(s) 11/05/2016 3:50 PM Advance Directive(s) 11/05/2016 3:51 PM Documents on File Type Date Recorded 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 Advance Directive(s) Advance Directive(s) 10/30/2020 7:21 AM Advance Directive(s) 10/13/2017 7:41 AM Advance Directive(s) 12/06/2016 9:28 PM Advance Directive(s) 11/05/2016 3:50 PM Advance Directive(s) 11/05/2016 3:51 PM Documents on File Type Date Recorded 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 Advance Directive(s) 11/05/2016 3:51 PM Documents on File Type Date Recorded 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 Advance Directive(s) 11/05/2016 3:51 PM Advance Directive Response Recorded Date/ Time Advance Directives No January 09, 2023 5:13am Advance Directive Response Recorded Date/ Time Advance Directives No January 09, 2023 6:13am Reason for Referral Specialty Diagnoses / Procedures Referred By Kalina burciaga Referred To Contact Orthopedics Diagnoses Traumatic complete tear of right rotator cuff, subsequent encounter Procedures CONSULT PANEL TO ORTHOPAEDICS OFFICE[facility]IENT [facility] 60-74 MINUTES Lorenzo Perry, [address] [place] [address] Referral ID Status Reason Start Date Expiration Date Visits Requested Visits Authorized [id number] Authorized PCP Requested Referral 09/05/2021 09/05/2022 1 1 Specialty Diagnoses / Procedures Referred By Kalina burciaga Referred To Contact [facility] Diagnoses Chondromalacia patellae of left knee Patellar tendonitis of left knee Procedures CONSULT TO PHYSICAL THERAPY PHYSICAL THERAPY EVALUATION [facility] 45 MINS Terrell Mayo PA-C [address] [place] [address] [facility] [address] [address] Referral ID Status Reason Start Date Expiration Date Visits Requested Visits Authorized [id number] Authorized Auto-Generat ed Referral 02/08/2021 02/07/2022 30 30 Specialty Diagnoses / Procedures Referred By Kalina burciaga Referred To Contact Marichuy Suarez MD [address] [place] [address] Referral ID Status Reason Start Date Expiration Date Visits Re quested Visits Authorized [id number] Closed 1 1 Specialty Diagnoses / Procedures Referred By Contac t Referred To Contact Chepe Shea APRN.DRILL PRESS HAND [address] [id number] Referral ID Status Reason Start Date Expiration Date Visits Re quested Visits Authorized [id number] Closed 1 1 Specialty Diagnoses / Procedures Referred By Contac t Referred To Contact Diagnoses Abnormal weight gain S/P bariatric surgery Obesity, Class II, BMI 35-39.9 Vitamin B12 deficiency Vitamin D deficiency Anemia, unspecified type Gastroesophageal reflux disease, unspecified whether esophagitis present Rachel Yi MD [address] [place] [id number] Referral ID Status Reason Start Date Expiration Date Visits Re quested Visits Authorized [id number] Closed 1 1 Specialty Diagnoses / Procedures Referred By Contac t Referred To Contact MR IMAGING Diagnoses Chronic right shoulder pain Procedures MRI SHOULDER WO IVCON RT MRI, JOINT UPPER EXTREM Lorenzo Perry DO [address] [place] [id number] Mr [facility] [place] [address] Referral ID Status Reason Start Date Expiration Date Visits Requested Visits Authorized [id number] Closed Auto-Generated Referral Patient Cleared Patient agrees to sign AFR (INN Commercial or OON MA) 01/07/2021 02/07/2021 1 1 Specialty Diagnoses / Procedures Referred By Contac t Referred To Contact [facility] Diagnoses Neck pain Procedures [facility]SULT [facility] OFFICE/OUTPATIENT [facility] MDM 60 MINUTES Hilario Leavitt DO [address] [place] [address] Referral ID Status Reason Start Date Expiration Date Visits Requested Visits Authorized [id number] Authorized PCP Requested Referral 04/01/2023 03/31/2024 1 1 Specialty Diagnoses / Procedures Referred By Contac t Referred To Contact [facility] Diagnoses Acute pain of left shoulder Neck pain Procedures CONSULT TO PHYSICAL THERAPY PHYSICAL THERAPY EVALUATION [facility]X 45 MINS Hilario Leavitt DO [address] [place] [address] [facility] [address] [place] [address] Referral ID Status Reason Start Date Expiration Date Visits Requested Visits Authorized [id number] Authorized Auto-Generat ed Referral 02/08/2023 02/08/2024 30 30 Specialty Diagnoses / Procedures Referred By Contac t Referred To Contact XR IMAGING Diagnoses Acute pain of left shoulder Neck pain Procedures XR CERV OTHER 4V AP/LAT/OBL RADEX SPINE CERVICAL 4 OR 5 VIEWS Hilario Leavitt, DO [address] [place] [address] [place] [address] Referral ID Status Reason Start Date Expiration Date V isits Requested Visits Authorized [id number] Closed Auto-Generate d Referral 04/01/2023 04/30/2024 1 1 Specialty Diagnoses / Procedures Referred By Contac t Referred To Contact XR IMAGING Diagnoses Acute pain of left shoulder Procedures XR SHOULDER GENERAL 3V OR MORE AP/TRUE AP/OTHER LEFT RADEX SHOULDER COMPLETE MINIMUM 2 VIEWS Hilario Leavitt, DO [address] [place] [address] [place] [address] Referral ID Status Reason Start Date Expiration Date V isits Requested Visits Authorized [id number] Closed Auto-Generate d Referral 04/01/2023 04/30/2024 1 1 Specialty Diagnoses / Procedures Referred By Contac t Referred To Contact CT IMAGING Diagnoses Abdominal pain, unspecified abdominal location Procedures CT PELVIS WO IVCON CT PELVIS W/O CONTRAST MATERIAL Adilene Ordoñez, AERIAL SURVEY TECHNICIAN.DRILL PRESS HAND [address] [place] [address] [place] [address] Referral ID Status Reason Start Date Expiration Date V isits Requested Visits Authorized [id number] Closed Auto-Generate d Referral 04/15/2023 05/14/2024 1 1 Specialty Diagnoses / Procedures Referred By Contac t Referred To Contact CT IMAGING Diagnoses Nausea Procedures CT ABDOMEN WO IVCON CT ABDOMEN W/O CONTRAST Adilene Ordoñez, AERIAL SURVEY TECHNICIAN.DRILL PRESS HAND [address] [place] [address] [place] [address] Referral ID Status Reason Start Date Expiration Date V isits Requested Visits Authorized [id number] Closed Auto-Generate d Referral 04/15/2023 05/14/2024 1 1 Specialty Diagnoses / Procedures Referred By Contac t Referred To Contact CT IMAGING Diagnoses Nausea Procedures CT ABD/PEL W IVCON CT ABD & PELVIS W/CONTRAST Adilene Ordoñez, AERIAL SURVEY TECHNICIAN.DRILL PRESS HAND [address] [id number] [address] Imaging [facility] Referral ID Status Reason Start Date Expiration Date V isits Requested Visits Authorized [id number] Closed Auto-Generate d Referral 04/14/2023 02/08/2024 1 1 Specialty Diagnoses / Procedures Referred By Contac t Referred To Contact CT IMAGING Diagnoses Nausea Procedures CT ABD/PEL WO IVCON CT ABD & PELVIS W/O CONTRAST Adilene Ordoñez, AERIAL SURVEY TECHNICIAN.DRILL PRESS HAND [address] [id number] [address] Imaging [facility] Referral ID Status Reason Start Date Expiration Date V isits Requested Visits Authorized [id number] Closed Auto-Generate d Referral 04/15/2023 05/14/2024 1 1 Chief Complaint and Reason for Visit Chief Complaint xanx withdraw Chief Complaint xanx withdraw panic attack Chief Complaint MHP Additional Source Comments INFORMATION SOURCE (unrecogn ized section and content) DATE CREATED AUTHOR 10/23/2017 [facility] DATE CREATED AUTHOR AUTHOR'S ORGANIZ ATION 10/08/2020 [facility] DATE CREATED AUTHOR AUTHOR'S ORGANIZ ATION 07/21/2022 [facility] DATE CREATED AUTHOR AUTHOR'S ORGANIZ ATION 07/21/2022 [facility] DATE CREATED AUTHOR AUTHOR'S ORGANIZ ATION 01/02/2023 [facility] DATE CREATED AUTHOR AUTHOR'S ORGANIZ ATION 03/28/2023 [facility] DATE CREATED AUTHOR AUTHOR'S ORGANIZ ATION 04/24/2023 [facility] DATE CREATED AUTHOR AUTHOR'S ORGANIZ ATION 06/04/2023 [facility] DATE CREATED AUTHOR AUTHOR'S YOU ATION 06/05/2023 [facility] Source Comments (unrecognize d section and content) In the event this informatio n is protected by the Federal Confidentiality of Alcohol and Drug Abuse Patient Records regulations: The Federal rules restrict any use of the information to criminally investigate or prosecute any alcohol or drug abuse patient.[facility] the event this information is protected by the Federal Confidentiality of Alcohol and Drug Abuse Patient Records regulations: The Federal rules restrict any use of the information to criminally investigate or prosecute any alcohol or drug abuse patient.[facility] the event this information is protected by the Federal Confidentiality of Alcohol and Drug Abuse Patient Records regulations: The Federal rules restrict any use of the information to criminally investigate or prosecute any alcohol or drug abuse patient.[facility] the event this information is protected by the Federal Confidentiality of Alcohol and Drug Abuse Patient Records regulations: The Federal rules restrict any use of the information to criminally investigate or prosecute any alcohol or drug abuse patient.[facility] the event this information is protected by the Federal Confidentiality of Alcohol and Drug Abuse Patient Records regulations: The Federal rules restrict any use of the information to criminally investigate or prosecute any alcohol or drug abuse patient.[facility] the event this information is protected by the Federal Confidentiality of Alcohol and Drug Abuse Patient Records regulations: The Federal rules restrict any use of the information to criminally investigate or prosecute any alcohol or drug abuse patient.[facility] the event this information is protected by the Federal Confidentiality of Alcohol and Drug Abuse Patient Records regulations: The Federal rules restrict any use of the information to criminally investigate or prosecute any alcohol or drug abuse patient.[facility] the event this information is protected by the Federal Confidentiality of Alcohol and Drug Abuse Patient Records regulations: The Federal rules restrict any use of the information to criminally investigate or prosecute any alcohol or drug abuse patient.[facility] the event this information is protected by the Federal Confidentiality of Alcohol and Drug Abuse Patient Records regulations: The Federal rules restrict any use of the information to criminally investigate or prosecute any alcohol or drug abuse patient.[facility] the event this information is protected by the Federal Confidentiality of Alcohol and Drug Abuse Patient Records regulations: The Federal rules restrict any use of the information to criminally investigate or prosecute any alcohol or drug abuse patient.[facility]In the event this information is protected by the Federal Confidentiality of Alcohol and Drug Abuse Patient Records regulations: The Federal rules restrict any use of the information to criminally investigate or prosecute any alcohol or drug abuse patient.[facility] the event this information is protected by the Federal Confidentiality of Alcohol and Drug Abuse Patient Records regulations: The Federal rules restrict any use of the information to criminally investigate or prosecute any alcohol or drug abuse patient.[facility] HospitalIn the event this information is protected by the Federal Confidentiality of Alcohol and Drug Abuse Patient Records regulations: The Federal rules restrict any use of the information to criminally investigate or prosecute any alcohol or drug abuse patient.[facility] HospitalIn the event this information is protected by the Federal Confidentiality of Alcohol and Drug Abuse Patient Records regulations: The Federal rules restrict any use of the information to criminally investigate or prosecute any alcohol or drug abuse patient.[facility] HospitalIn the event this information is protected by the Federal Confidentiality of Alcohol and Drug Abuse Patient Records regulations: The Federal rules restrict any use of the information to criminally investigate or prosecute any alcohol or drug abuse patient.[facility] HospitalIn the event this information is protected by the Federal Confidentiality of Alcohol and Drug Abuse Patient Records regulations: The Federal rules restrict any use of the information to criminally investigate or prosecute any alcohol or drug abuse patient.[facility] HospitalIn the event this information is protected by the Federal Confidentiality of Alcohol and Drug Abuse Patient Records regulations: The Federal rules restrict any use of the information to criminally investigate or prosecute any alcohol or drug abuse patient.[facility] HospitalIn the event this information is protected by the Federal Confidentiality of Alcohol and Drug Abuse Patient Records regulations: The Federal rules restrict any use of the information to criminally investigate or prosecute any alcohol or drug abuse patient.[facility] HospitalIn the event this information is protected by the Federal Confidentiality of Alcohol and Drug Abuse Patient Records regulations: The Federal rules restrict any use of the information to criminally investigate or prosecute any alcohol or drug abuse patient.[facility] HospitalIn the event this information is protected by the Federal Confidentiality of Alcohol and Drug Abuse Patient Records regulations: The Federal rules restrict any use of the information to criminally investigate or prosecute any alcohol or drug abuse patient.[facility] HospitalIn the event this information is protected by the Federal Confidentiality of Alcohol and Drug Abuse Patient Records regulations: The Federal rules restrict any use of the information to criminally investigate or prosecute any alcohol or drug abuse patient.[facility] HospitalIn the event this information is protected by the Federal Confidentiality of Alcohol and Drug Abuse Patient Records regulations: The Federal rules restrict any use of the information to criminally investigate or prosecute any alcohol or drug abuse patient.[facility] HospitalIn the event this information is protected by the Federal Confidentiality of Alcohol and Drug Abuse Patient Records regulations: The Federal rules restrict any use of the information to criminally investigate or prosecute any alcohol or drug abuse patient.[facility] HospitalIn the event this information is protected by the Federal Confidentiality of Alcohol and Drug Abuse Patient Records regulations: The Federal rules restrict any use of the information to criminally investigate or prosecute any alcohol or drug abuse patient.[facility] HospitalIn the event this information is protected by the Federal Confidentiality of Alcohol and Drug Abuse Patient Records regulations: The Federal rules restrict any use of the information to criminally investigate or prosecute any alcohol or drug abuse patient.[facility] HospitalIn the event this information is protected by the Federal Confidentiality of Alcohol and Drug Abuse Patient Records regulations: The Federal rules restrict any use of the information to criminally investigate or prosecute any alcohol or drug abuse patient.[facility] HospitalIn the event this information is protected by the Federal Confidentiality of Alcohol and Drug Abuse Patient Records regulations: The Federal rules restrict any use of the information to criminally investigate or prosecute any alcohol or drug abuse patient.[facility] HospitalIn the event this information is protected by the Federal Confidentiality of Alcohol and Drug Abuse Patient Records regulations: The Federal rules restrict any use of the information to criminally investigate or prosecute any alcohol or drug abuse patient.[facility] HospitalIn the event this information is protected by the Federal Confidentiality of Alcohol and Drug Abuse Patient Records regulations: The Federal rules restrict any use of the information to criminally investigate or prosecute any alcohol or drug abuse patient.[facility] HospitalIn the event this information is protected by the Federal Confidentiality of Alcohol and Drug Abuse Patient Records regulations: The Federal rules restrict any use of the information to criminally investigate or prosecute any alcohol or drug abuse patient.[facility] HospitalIn the event this information is protected by the Federal Confidentiality of Alcohol and Drug Abuse Patient Records regulations: The Federal rules restrict any use of the information to criminally investigate or prosecute any alcohol or drug abuse patient.[facility] HospitalIn the event this information is protected by the Federal Confidentiality of Alcohol and Drug Abuse Patient Records regulations: The Federal rules restrict any use of the information to criminally investigate or prosecute any alcohol or drug abuse patient.[facility] HospitalIn the event this information is protected by the Federal Confidentiality of Alcohol and Drug Abuse Patient Records regulations: The Federal rules restrict any use of the information to criminally investigate or prosecute any alcohol or drug abuse patient.[facility] HospitalIn the event this information is protected by the Federal Confidentiality of Alcohol and Drug Abuse Patient Records regulations: The Federal rules restrict any use of the information to criminally investigate or prosecute any alcohol or drug abuse patient.[facility] HospitalIn the event this information is protected by the Federal Confidentiality of Alcohol and Drug Abuse Patient Records regulations: The Federal rules restrict any use of the information to criminally investigate or prosecute any alcohol or drug abuse patient.[facility] HospitalIn the event this information is protected by the Federal Confidentiality of Alcohol and Drug Abuse Patient Records regulations: The Federal rules restrict any use of the information to criminally investigate or prosecute any alcohol or drug abuse patient.[facility] HospitalIn the event this information is protected by the Federal Confidentiality of Alcohol and Drug Abuse Patient Records regulations: The Federal rules restrict any use of the information to criminally investigate or prosecute any alcohol or drug abuse patient.[facility] HospitalIn the event this information is protected by the Federal Confidentiality of Alcohol and Drug Abuse Patient Records regulations: The Federal rules restrict any use of the information to criminally investigate or prosecute any alcohol or drug abuse patient.[facility] HospitalIn the event this information is protected by the Federal Confidentiality of Alcohol and Drug Abuse Patient Records regulations: The Federal rules restrict any use of the information to criminally investigate or prosecute any alcohol or drug abuse patient.[facility] HospitalIn the event this information is protected by the Federal Confidentiality of Alcohol and Drug Abuse Patient Records regulations: The Federal rules restrict any use of the information to criminally investigate or prosecute any alcohol or drug abuse patient.[facility] HospitalIn the event this information is protected by the Federal Confidentiality of Alcohol and Drug Abuse Patient Records regulations: The Federal rules restrict any use of the information to criminally investigate or prosecute any alcohol or drug abuse patient.[facility] HospitalIn the event this information is protected by the Federal Confidentiality of Alcohol and Drug Abuse Patient Records regulations: The Federal rules restrict any use of the information to criminally investigate or prosecute any alcohol or drug abuse patient.[facility] HospitalIn the event this information is protected by the Federal Confidentiality of Alcohol and Drug Abuse Patient Records regulations: The Federal rules restrict any use of the information to criminally investigate or prosecute any alcohol or drug abuse patient.[facility] HospitalIn the event this information is protected by the Federal Confidentiality of Alcohol and Drug Abuse Patient Records regulations: The Federal rules restrict any use of the information to criminally investigate or prosecute any alcohol or drug abuse patient.[facility] HospitalIn the event this information is protected by the Federal Confidentiality of Alcohol and Drug Abuse Patient Records regulations: The Federal rules restrict any use of the information to criminally investigate or prosecute any alcohol or drug abuse patient.[facility] HospitalIn the event this information is protected by the Federal Confidentiality of Alcohol and Drug Abuse Patient Records regulations: The Federal rules restrict any use of the information to criminally investigate or prosecute any alcohol or drug abuse patient.[facility] HospitalIn the event this information is protected by the Federal Confidentiality of Alcohol and Drug Abuse Patient Records regulations: The Federal rules restrict any use of the information to criminally investigate or prosecute any alcohol or drug abuse patient.[facility] HospitalIn the event this information is protected by the Federal Confidentiality of Alcohol and Drug Abuse Patient Records regulations: The Federal rules restrict any use of the information to criminally investigate or prosecute any alcohol or drug abuse patient.[facility] HospitalIn the event this information is protected by the Federal Confidentiality of Alcohol and Drug Abuse Patient Records regulations: The Federal rules restrict any use of the information to criminally investigate or prosecute any alcohol or drug abuse patient.[facility] HospitalIn the event this information is protected by the Federal Confidentiality of Alcohol and Drug Abuse Patient Records regulations: The Federal rules restrict any use of the information to criminally investigate or prosecute any alcohol or drug abuse patient.[facility] HospitalIn the event this information is protected by the Federal Confidentiality of Alcohol and Drug Abuse Patient Records regulations: The Federal rules restrict any use of the information to criminally investigate or prosecute any alcohol or drug abuse patient.[facility] HospitalIn the event this information is protected by the Federal Confidentiality of Alcohol and Drug Abuse Patient Records regulations: The Federal rules restrict any use of the information to criminally investigate or prosecute any alcohol or drug abuse patient.[facility] HospitalIn the event this information is protected by the Federal Confidentiality of Alcohol and Drug Abuse Patient Records regulations: The Federal rules restrict any use of the information to criminally investigate or prosecute any alcohol or drug abuse patient.[facility] HospitalIn the event this information is protected by the Federal Confidentiality of Alcohol and Drug Abuse Patient Records regulations: The Federal rules restrict any use of the information to criminally investigate or prosecute any alcohol or drug abuse patient.[facility] HospitalIn the event this information is protected by the Federal Confidentiality of Alcohol and Drug Abuse Patient Records regulations: The Federal rules restrict any use of the information to criminally investigate or prosecute any alcohol or drug abuse patient.[facility] HospitalIn the event this information is protected by the Federal Confidentiality of Alcohol and Drug Abuse Patient Records regulations: The Federal rules restrict any use of the information to criminally investigate or prosecute any alcohol or drug abuse patient.[facility] HospitalIn the event this information is protected by the Federal Confidentiality of Alcohol and Drug Abuse Patient Records regulations: The Federal rules restrict any use of the information to criminally investigate or prosecute any alcohol or drug abuse patient.[facility] HospitalIn the event this information is protected by the Federal Confidentiality of Alcohol and Drug Abuse Patient Records regulations: The Federal rules restrict any use of the information to criminally investigate or prosecute any alcohol or drug abuse patient.[facility] HospitalIn the event this information is protected by the Federal Confidentiality of Alcohol and Drug Abuse Patient Records regulations: The Federal rules restrict any use of the information to criminally investigate or prosecute any alcohol or drug abuse patient.[facility] HospitalIn the event this information is protected by the Federal Confidentiality of Alcohol and Drug Abuse Patient Records regulations: The Federal rules restrict any use of the information to criminally investigate or prosecute any alcohol or drug abuse patient.[facility] HospitalIn the event this information is protected by the Federal Confidentiality of Alcohol and Drug Abuse Patient Records regulations: The Federal rules restrict any use of the information to criminally investigate or prosecute any alcohol or drug abuse patient.[facility] HospitalIn the event this information is protected by the Federal Confidentiality of Alcohol and Drug Abuse Patient Records regulations: The Federal rules restrict any use of the information to criminally investigate or prosecute any alcohol or drug abuse patient.[facility] HospitalIn the event this information is protected by the Federal Confidentiality of Alcohol and Drug Abuse Patient Records regulations: The Federal rules restrict any use of the information to criminally investigate or prosecute any alcohol or drug abuse patient.[facility] HospitalIn the event this information is protected by the Federal Confidentiality of Alcohol and Drug Abuse Patient Records regulations: The Federal rules restrict any use of the information to criminally investigate or prosecute any alcohol or drug abuse patient.[facility] HospitalIn the event this information is protected by the Federal Confidentiality of Alcohol and Drug Abuse Patient Records regulations: The Federal rules restrict any use of the information to criminally investigate or prosecute any alcohol or drug abuse patient.[facility] HospitalIn the event this information is protected by the Federal Confidentiality of Alcohol and Drug Abuse Patient Records regulations: The Federal rules restrict any use of the information to criminally investigate or prosecute any alcohol or drug abuse patient.[facility] HospitalIn the event this information is protected by the Federal Confidentiality of Alcohol and Drug Abuse Patient Records regulations: The Federal rules restrict any use of the information to criminally investigate or prosecute any alcohol or drug abuse patient.[facility] HospitalIn the event this information is protected by the Federal Confidentiality of Alcohol and Drug Abuse Patient Records regulations: The Federal rules restrict any use of the information to criminally investigate or prosecute any alcohol or drug abuse patient.[facility] HospitalIn the event this information is protected by the Federal Confidentiality of Alcohol and Drug Abuse Patient Records regulations: The Federal rules restrict any use of the information to criminally investigate or prosecute any alcohol or drug abuse patient.[facility] HospitalIn the event this information is protected by the Federal Confidentiality of Alcohol and Drug Abuse Patient Records regulations: The Federal rules restrict any use of the information to criminally investigate or prosecute any alcohol or drug abuse patient.[facility] HospitalIn the event this information is protected by the Federal Confidentiality of Alcohol and Drug Abuse Patient Records regulations: The Federal rules restrict any use of the information to criminally investigate or prosecute any alcohol or drug abuse patient.[facility] HospitalIn the event this information is protected by the Federal Confidentiality of Alcohol and Drug Abuse Patient Records regulations: The Federal rules restrict any use of the information to criminally investigate or prosecute any alcohol or drug abuse patient.[facility] HospitalIn the event this information is protected by the Federal Confidentiality of Alcohol and Drug Abuse Patient Records regulations: The Federal rules restrict any use of the information to criminally investigate or prosecute any alcohol or drug abuse patient.[facility] HospitalIn the event this information is protected by the Federal Confidentiality of Alcohol and Drug Abuse Patient Records regulations: The Federal rules restrict any use of the information to criminally investigate or prosecute any alcohol or drug abuse patient.[facility] HospitalIn the event this information is protected by the Federal Confidentiality of Alcohol and Drug Abuse Patient Records regulations: The Federal rules restrict any use of the information to criminally investigate or prosecute any alcohol or drug abuse patient.[facility] HospitalIn the event this information is protected by the Federal Confidentiality of Alcohol and Drug Abuse Patient Records regulations: The Federal rules restrict any use of the information to criminally investigate or prosecute any alcohol or drug abuse patient.[facility] HospitalIn the event this information is protected by the Federal Confidentiality of Alcohol and Drug Abuse Patient Records regulations: The Federal rules restrict any use of the information to criminally investigate or prosecute any alcohol or drug abuse patient.[facility] HospitalIn the event this information is protected by the Federal Confidentiality of Alcohol and Drug Abuse Patient Records regulations: The Federal rules restrict any use of the information to criminally investigate or prosecute any alcohol or drug abuse patient.[facility] HospitalIn the event this information is protected by the Federal Confidentiality of Alcohol and Drug Abuse Patient Records regulations: The Federal rules restrict any use of the information to criminally investigate or prosecute any alcohol or drug abuse patient.[facility] HospitalIn the event this information is protected by the Federal Confidentiality of Alcohol and Drug Abuse Patient Records regulations: The Federal rules restrict any use of the information to criminally investigate or prosecute any alcohol or drug abuse patient.[facility] HospitalIn the event this information is protected by the Federal Confidentiality of Alcohol and Drug Abuse Patient Records regulations: The Federal rules restrict any use of the information to criminally investigate or prosecute any alcohol or drug abuse patient.[facility] HospitalIn the event this information is protected by the Federal Confidentiality of Alcohol and Drug Abuse Patient Records regulations: The Federal rules restrict any use of the information to criminally investigate or prosecute any alcohol or drug abuse patient.[facility] HospitalIn the event this information is protected by the Federal Confidentiality of Alcohol and Drug Abuse Patient Records regulations: The Federal rules restrict any use of the information to criminally investigate or prosecute any alcohol or drug abuse patient.[facility] HospitalIn the event this information is protected by the Federal Confidentiality of Alcohol and Drug Abuse Patient Records regulations: The Federal rules restrict any use of the information to criminally investigate or prosecute any alcohol or drug abuse patient.[facility] HospitalIn the event this information is protected by the Federal Confidentiality of Alcohol and Drug Abuse Patient Records regulations: The Federal rules restrict any use of the information to criminally investigate or prosecute any alcohol or drug abuse patient.[facility] HospitalIn the event this information is protected by the Federal Confidentiality of Alcohol and Drug Abuse Patient Records regulations: The Federal rules restrict any use of the information to criminally investigate or prosecute any alcohol or drug abuse patient.[facility] HospitalIn the event this information is protected by the Federal Confidentiality of Alcohol and Drug Abuse Patient Records regulations: The Federal rules restrict any use of the information to criminally investigate or prosecute any alcohol or drug abuse patient.[facility] HospitalIn the event this information is protected by the Federal Confidentiality of Alcohol and Drug Abuse Patient Records regulations: The Federal rules restrict any use of the information to criminally investigate or prosecute any alcohol or drug abuse patient.[facility] HospitalIn the event this information is protected by the Federal Confidentiality of Alcohol and Drug Abuse Patient Records regulations: The Federal rules restrict any use of the information to criminally investigate or prosecute any alcohol or drug abuse patient.[facility] HospitalIn the event this information is protected by the Federal Confidentiality of Alcohol and Drug Abuse Patient Records regulations: The Federal rules restrict any use of the information to criminally investigate or prosecute any alcohol or drug abuse patient.[facility] HospitalIn the event this information is protected by the Federal Confidentiality of Alcohol and Drug Abuse Patient Records regulations: The Federal rules restrict any use of the information to criminally investigate or prosecute any alcohol or drug abuse patient.[facility] HospitalIn the event this information is protected by the Federal Confidentiality of Alcohol and Drug Abuse Patient Records regulations: The Federal rules restrict any use of the information to criminally investigate or prosecute any alcohol or drug abuse patient.[facility] HospitalIn the event this information is protected by the Federal Confidentiality of Alcohol and Drug Abuse Patient Records regulations: The Federal rules restrict any use of the information to criminally investigate or prosecute any alcohol or drug abuse patient.[facility] HospitalIn the event this information is protected by the Federal Confidentiality of Alcohol and Drug Abuse Patient Records regulations: The Federal rules restrict any use of the information to criminally investigate or prosecute any alcohol or drug abuse patient.[facility] HospitalIn the event this information is protected by the Federal Confidentiality of Alcohol and Drug Abuse Patient Records regulations: The Federal rules restrict any use of the information to criminally investigate or prosecute any alcohol or drug abuse patient.[facility] HospitalIn the event this information is protected by the Federal Confidentiality of Alcohol and Drug Abuse Patient Records regulations: The Federal rules restrict any use of the information to criminally investigate or prosecute any alcohol or drug abuse patient.[facility] HospitalIn the event this information is protected by the Federal Confidentiality of Alcohol and Drug Abuse Patient Records regulations: The Federal rules restrict any use of the information to criminally investigate or prosecute any alcohol or drug abuse patient.[facility] HospitalIn the event this information is protected by the Federal Confidentiality of Alcohol and Drug Abuse Patient Records regulations: The Federal rules restrict any use of the information to criminally investigate or prosecute any alcohol or drug abuse patient.[facility] HospitalIn the event this information is protected by the Federal Confidentiality of Alcohol and Drug Abuse Patient Records regulations: The Federal rules restrict any use of the information to criminally investigate or prosecute any alcohol or drug abuse patient.[facility] HospitalIn the event this information is protected by the Federal Confidentiality of Alcohol and Drug Abuse Patient Records regulations: The Federal rules restrict any use of the information to criminally investigate or prosecute any alcohol or drug abuse patient.[facility] HospitalIn the event this information is protected by the Federal Confidentiality of Alcohol and Drug Abuse Patient Records regulations: The Federal rules restrict any use of the information to criminally investigate or prosecute any alcohol or drug abuse patient.[facility] HospitalIn the event this information is protected by the Federal Confidentiality of Alcohol and Drug Abuse Patient Records regulations: The Federal rules restrict any use of the information to criminally investigate or prosecute any alcohol or drug abuse patient.[facility] HospitalIn the event this information is protected by the Federal Confidentiality of Alcohol and Drug Abuse Patient Records regulations: The Federal rules restrict any use of the information to criminally investigate or prosecute any alcohol or drug abuse patient.[facility] HospitalIn the event this information is protected by the Federal Confidentiality of Alcohol and Drug Abuse Patient Records regulations: The Federal rules restrict any use of the information to criminally investigate or prosecute any alcohol or drug abuse patient.[facility] HospitalIn the event this information is protected by the Federal Confidentiality of Alcohol and Drug Abuse Patient Records regulations: The Federal rules restrict any use of the information to criminally investigate or prosecute any alcohol or drug abuse patient.[facility] HospitalIn the event this information is protected by the Federal Confidentiality of Alcohol and Drug Abuse Patient Records regulations: The Federal rules restrict any use of the information to criminally investigate or prosecute any alcohol or drug abuse patient.[facility] HospitalIn the event this information is protected by the Federal Confidentiality of Alcohol and Drug Abuse Patient Records regulations: The Federal rules restrict any use of the information to criminally investigate or prosecute any alcohol or drug abuse patient.[facility] Reason for Visit (unrecogniz ed section and content) Reason Comments Anxiety Specialty Diagnoses / Procedures Referred By Contac t Referred To Contact Psych/Mental Health / WELLNESS Diagnoses MyChart Zoom MIND BODY Procedures PSYCHOTHERAPY 45 MINUTES WITH PATIENT VIDEO PSYC/PSYL EST Self Gloria Snell, [facility] [id number] [facility] [address] [place] [address] Referral ID Status Reason Start Date Expiration Date Visits Requested Visits Authorized [id number] Authorized Benefit Check 02/17/2021 02/07/2022 99 99 Reason Comments No Show Specialty Diagnoses / Procedures Referred By Contac t Referred To Contact [facility] Diagnoses Chronic right-sided low back pain with right-sided sciatica Traumatic complete tear of right rotator cuff, subsequent encounter Procedures CONSULT TO PAIN MGT OFFICE/OUTPATIENT NEW HIGH MDM 60-74 MINUTES Lorenzo Perry, DO [address] [place], [place] [id number] Anesthesia [facility] [address] [place] [address] Referral ID Status Reason Start Date Expiration Date V isits Requested Visits Authorized [id number] Closed PCP Requested Referral 04/15/2021 04/15/2022 1 1 Reason Comments Refill Request Reason Onset Date Comments Refill Request 08/04/2021 Reason Comments PAP Therapy Follow Up NEED MACHINE OR SD CHIP TO BE SENT TO DME Reason Comments Wellness Specialty Diagnoses / Procedures Referred By Contac t Referred To Contact Psych/Mental Health / WELLNESS Diagnoses MyChart Zoom MIND BODY Procedures PSYCHOTHERAPY 45 MINUTES WITH PATIENT VIDEO PSYC/PSYL EST MD Channing Diaz Dawn M, [facility] [id number] [facility] [address] [place] [address] Reason Comments Follow-up Shoulder Pain Reason Comments Sleep Problem 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 Could not drive self home. Reason Comments Dizziness ERT brought upstairs after MRI w and w/o contrast Reason Comments PAP Therapy Follow Up Reason Comments New Specialty Diagnoses / Procedures Referred By Contac t Referred To Contact Orthopedics Diagnoses Traumatic complete tear of right rotator cuff, subsequent encounter Procedures CONSULT PANEL TO ORTHOPAEDICS OFFICE/OUTPATIENT [facility] MDM 60-74 MINUTES Lorenzo Perry, DO [address] [place] [id number] Referral ID Status Reason Start Date Expiration Date V isits Requested Visits Authorized [id number] Closed PCP Requested Referral 09/05/2021 09/05/2022 1 1 Reason Comments Medication Problem Reason Comments Insurance Authorization [place] for zaleplon 5 mg Reason Onset Date Comments Refill Request 12/12/2021 Reason Comments Apnea Reason Comments PAP Therapy Follow Up DOWNLOAD Reason Comments New Patient Reason Comments New Knee Pain Reason Comments Lab Results CC Reason Comments CMN Reason Onset Date Comments Refill Request 03/30/2022 Reason Comments Blurred Vision Both Eyes Reason Comments Cardiology Follow Up Reason Comments Well Woman Reason Comments Low Blood Sugars Reason Comments Droopy Eye Lid Reason Comments Patient Update Reason Comments Scheduling Reason Comments Low Blood Sugar Thyroid Cancer Reason Comments Follow Up Reason Comments Anesthesia Consult PMB Reason Comments Pre-Op Exam increased palpations pre op recommendations and optimization Reason Comments Appointment Reason Comments New Patient Evaluation Reason Comments Radiology Mammogram Specialty Diagnoses / Procedures Referred By Kalina burciaga Referred To Contact [facility] Diagnoses Encounter for screening mammogram for malignant neoplasm of breast Procedures JUS SCREENING W SURINDER SCREENING DIGITAL BREAST TOMOSYNTHESIS BI SCREENING MAMMOGRAPHY BI 2-[place] [address] [place] [address] [facility] [address] [place] [address] Referral ID Status Reason Start Date Expiration Date V isits Requested Visits Authorized [id number] Closed Auto-Generate d Referral 10/05/2022 02/07/2023 2 1 Reason Comments New Patient Short term memory lo ssIssues with word recognitionIssues getting word to come out the right wayScrambled egg head Changes in MRI Reason Comments Established Patient Reason Comments Follow Up Recently seen in the setting of cognitive complaints (short-term memory loss, issues getting words to come out the right way). Also concerned about possible changes on MRI. Reason Comments Diabetes Reason Onset Date Comments Refill Request 12/02/2022 Reason Onset Date Comments Refill Request 12/02/2022 Specialty Diagnoses / Procedures Referred By Kalina burciaga Referred To Contact [facility] Diagnoses Chronic right shoulder pain Procedures MRI SHOULDER WO IVCON RT MRI, JOINT UPPER EXTREM Lorenzo Perry, DO [address] [place] [address] Mr Imaging [id number] Referral ID Status Reason Start Date Expiration Date Visits Requested Visits Authorized [id number] Closed Auto-Generated Referral Patient Cleared Patient agrees to sign AFR (INN Commercial or OON MA) 01/07/2021 02/07/2021 1 1 Reason Comments Missed Appointment Reason Comments Pre-Op Visit Reason Comments Follow Up Reason Comments Appointment Confirmation Reason Comments Throat Problem Reason Comments Ambulatory Social Work Reason Comments Radiology XR Reason Comments New Pain (Shoulder Pain) Reason Comments Returning Patient's Call Reason Comments Patient Question Reason Comments LMTCB Specialty Diagnoses / Procedures Referred By Contac t Referred To Contact CT IMAGING Diagnoses Nausea Procedures CT ABD/PEL WO IVCON CT ABD & PELVIS W/O CONTRAST Adilene Ordoñez, [facility] [facility] [address] [place] [id number] [id number] Referral ID Status Reason Start Date Expiration Date V isits Requested Visits Authorized [id number] Closed Auto-Generate d Referral 04/15/2023 05/14/2024 1 1 Specialty Diagnoses / Procedures Referred By Contac t Referred To Contact CT IMAGING Diagnoses Nausea Procedures CT ABD/PEL W IVCON CT ABD & PELVIS W/CONTRAST Adilene Ordoñez, [employer] [address] [place] [id number] Imaging [id number] Referral ID Status Reason Start Date Expiration Date V isits Requested Visits Authorized [id number] Closed Auto-Generate d Referral 04/14/2023 02/08/2024 1 1 Reason Comments Speech Instrumental Swallow Eval Speech Discharge Specialty Diagnoses / Procedures Referred By Contac t Referred To Contact XR IMAGING Diagnoses Dysphagia, unspecified type Procedures XR MODIFIED BARIUM SWALLOW W SPEECH THERAPY RADIOLOGIC EXAM SWALLOW FUNCTION CONTRAST STUDY Adilene Ordoñez, DRILL PRESS HAND [address] [place] [address] Xr Imaging [id number] Referral ID Status Reason Start Date Expiration Date V isits Requested Visits Authorized [id number] Closed Auto-Generate d Referral 02/08/2023 02/08/2024 1 1 Reason Comments Radio Gen RMP Specialty Diagnoses / Procedures Referred By Contac t Referred To Contact XR IMAGING Diagnoses Dysphagia, unspecified type Procedures XR MODIFIED BARIUM SWALLOW W SPEECH THERAPY RADIOLOGIC EXAM SWALLOW FUNCTION CONTRAST STUDY Adilene Ordoñez, AERIAL SURVEY TECHNICIAN.DRILL PRESS HAND [address] [place] [id number] [place] [id number] Reason Comments Appointment Pain Care Teams (unrecognized sec tion and content) Team Status: Active Member Role Status Dates Farhat Pineda MD Primary Care Provider Active Team Status: Active Member Role Status Dates Farhat Pineda MD Primary Care Provider Active Start: March 10, 2023 Prince Tucker MD Attending Provider Active Start: March 10, 2023 Team Status: Active Member Role Status Dates Tank Little PA-C Emergency Provider Active Start: May 25, 2023 Farhat Pineda MD Primary Care Provider Active Start: May 25, 2023 Prince Tucker MD Admit Provide r, Attending Provider Active Start: May 25, 2023 Dye Jig Operator Relationship Specialty Start Date End Date Farhat Pineda MD [address] [place] [address] PCP - General Family Practice 01/13/11 Dye Jig Operator Relationship Specialty Start Date End Date Farhat Pineda MD [address] [place] [address] PCP - General Family Practice 01/13/11 Dye Jig Operator Relationship Specialty Start Date End Date Farhat Pineda MD [address] [place] [id number] PCP - General Family Practice 01/13/11 Dye Jig Operator Relationship Specialty Start Date End Date Farhat Pineda MD [address] [place] [id number] PCP - General Family Practice 01/13/11 Dye Jig Operator Relationship Specialty Start Date End Date Farhat Pineda MD [address] [place] [address] PCP - General Family Practice 01/13/11 Dye Jig Operator Relationship Specialty Start Date End Date Farhat Pineda MD [address] [facility] [place] [address] PCP - General Family Practice 01/13/11 Dye Jig Operator Relationship Specialty Start Date End Date Farhat Pineda MD [address] [facility] PCP - General Family Practice 01/13/11 Dye Jig Operator Relationship Specialty Start Date End Date Farhat Pineda MD [address] [facility] PCP - General Family Practice 01/13/11 Dye Jig Operator Relationship Specialty Start Date End Date Farhat Pineda MD [address] [facility], [facility] PCP - General Family Practice 01/13/11 Dye Jig Operator Relationship Specialty Start Date End Date Farhat Pineda MD [address] [facility], [facility] PCP - General Family Practice 01/13/11 Dye Jig Operator Relationship Specialty Start Date End Date Farhat Pineda MD [address] [facility], [facility] PCP - General Family Medicine 01/13/11 Dye Jig Operator Relationship Specialty Start Date End Date Farhat Pineda MD [address] [facility] [place] [address] PCP - General Family Medicine 01/13/11 Dye Jig Operator Relationship Specialty Start Date End Date Farhat Pineda MD [address] [facility] [place] [address] PCP - General Family Medicine 01/13/11 Dye Jig Operator Relationship Specialty Start Date End Date Farhat Pineda MD [address] [facility] [place] [address] PCP - General Family Medicine 01/13/11 Dye Jig Operator Relationship Specialty Start Date End Date Farhat Pineda MD [address] [facility] [place] [address] PCP - General Family Medicine 01/13/11 Farhat Pineda MD [address] [facility] [place] [address] Referring Family Medicine 01/08/22 Dye Jig Operator Relationship Specialty Start Date End Date Farhat Pineda MD [address] [facility] [place] [address] PCP - General Family Medicine 01/13/11 Farhat Pineda MD [address] [facility] [place] [address] Referring Family Medicine 01/08/22 Dye Jig Operator Relationship Specialty Start Date End Date Farhat Pineda MD [address] [facility] [place] [address] PCP - General Family Medicine 01/13/11 Farhat Pineda MD [address] [facility] [place] [address] Referring Family Medicine 01/08/22 Dye Jig Operator Relationship Specialty Start Date End Date Farhat Pineda MD [address] [facility] [place] [address] PCP - General Family Medicine 01/13/11 Farhat Pineda MD [address] [facility] [place] [address] Referring Family Medicine 01/08/22 Dye Jig Operator Relationship Specialty Start Date End Date Farhat Pineda MD [address] [facility] [place] [address] PCP - General Family Medicine 01/13/11 Farhat Pineda MD [address] [place] [address] Referring Family Medicine 01/08/22 Dye Jig Operator Relationship Specialty Start Date End Date Farhat Pineda MD [address] [place] [address] PCP - General Family Medicine 01/13/11 Farhat Pineda MD [address] [place] [address] Referring Family Medicine 01/08/22 Dye Jig Operator Relationship Specialty Start Date End Date Farhat Pineda MD PCP - General Family Medicine 01/13/11 Farhat Pineda MD Referring Family Medicine 01/08/22 Dye Jig Operator Relationship Specialty Start Date End Date Farhat Pineda MD PCP - General Family Medicine 01/13/11 Farhat Pineda MD Referring Family Medicine 01/08/22 Dye Jig Operator Relationship Specialty Start Date End Date Farhat Pineda MD PCP - General Family Medicine 01/13/11 Farhat Pineda MD Referring Family Medicine 01/08/22 Dye Jig Operator Relationship Specialty Start Date End Date Farhat Pineda MD PCP - General Family Medicine 01/13/11 Farhat Pineda MD Referring Family Medicine 01/08/22 Dye Jig Operator Relationship Specialty Start Date End Date Farhat Pineda MD PCP - General Family Medicine 01/13/11 Farhat Pineda MD Referring Family Medicine 01/08/22 Dye Jig Operator Relationship Specialty Start Date End Date Farhat Pineda MD PCP - General Family Medicine 01/13/11 Farhat Pineda MD Referring Family Medicine 01/08/22 Dye Jig Operator Relationship Specialty Start Date End Date Farhat Pineda MD PCP - General Family Medicine 01/13/11 Farhat Pineda MD Referring Family Medicine 01/08/22 Dye Jig Operator Relationship Specialty Start Date End Date Farhat Pineda MD PCP - General Family Medicine 01/13/11 Farhat Pineda MD Referring Family Medicine 01/08/22 Dye Jig Operator Relationship Specialty Start Date End Date Farhat Pineda MD PCP - General Family Medicine 01/13/11 Farhat Pineda MD Referring Family Medicine 01/08/22 Dye Jig Operator Relationship Specialty Start Date End Date Farhat Pineda MD PCP - General Family Medicine 01/13/11 Farhat Pineda MD Referring Family Medicine 01/08/22 Dye Jig Operator Relationship Specialty Start Date End Date Farhat Pineda MD PCP - General Family Medicine 01/13/11 Farhat Pineda MD Referring Family Medicine 01/08/22 Dye Jig Operator Relationship Specialty Start Date End Date Farhat Pineda MD PCP - General Family Medicine 01/13/11 Dye Jig Operator Relationship Specialty Start Date End Date Farhat Pineda MD PCP - General Family Medicine 01/13/11 Farhat Pineda MD Referring Family Medicine 01/08/22 Dye Jig Operator Relationship Specialty Start Date End Date Farhat Pineda MD PCP - General Family Medicine 01/13/11 Farhat Pineda MD Referring Family Medicine 01/08/22 Dye Jig Operator Relationship Specialty Start Date End Date Farhat Pineda MD PCP - General Family Medicine 01/13/11 Farhat Pineda MD Referring Family Medicine 01/08/22 Dye Jig Operator Relationship Specialty Start Date End Date Farhat Pineda MD PCP - General Family Medicine 01/13/11 Farhat Pineda MD Referring Family Medicine 01/08/22 Dye Jig Operator Relationship Specialty Start Date End Date Farhat Pineda MD PCP - General Family Medicine 01/13/11 Farhat Pineda MD Referring Family Medicine 01/08/22 Dye Jig Operator Relationship Specialty Start Date End Date Farhat Pineda MD PCP - General Family Medicine 01/13/11 Farhat Pineda MD Referring Family Medicine 01/08/22 Dye Jig Operator Relationship Specialty Start Date End Date Farhat Pineda MD PCP - General Family Medicine 01/13/11 Farhat Pineda MD Referring Family Medicine 01/08/22 Dye Jig Operator Relationship Specialty Start Date End Date Farhat Pineda MD PCP - General Family Medicine 01/13/11 Farhat Pineda MD Referring Family Medicine 01/08/22 Dye Jig Operator Relationship Specialty Start Date End Date Farhat Pineda MD PCP - General Family Medicine 01/13/11 Farhat Pineda MD Referring Family Medicine 01/08/22 Dye Jig Operator Relationship Specialty Start Date End Date Farhat Pineda MD PCP - General Family Medicine 01/13/11 Farhat Pineda MD Referring Family Medicine 01/08/22 Dye Jig Operator Relationship Specialty Start Date End Date Farhat Pineda MD PCP - General Family Medicine 01/13/11 Farhat Pineda MD Referring Family Medicine 01/08/22 Dye Jig Operator Relationship Specialty Start Date End Date Farhat Pineda MD PCP - General Family Medicine 01/13/11 Farhat Pineda MD Referring Family Medicine 01/08/22 Dye Jig Operator Relationship Specialty Start Date End Date Farhat Pineda MD PCP - General Family Medicine 01/13/11 Farhat Pineda MD Referring Family Medicine 01/08/22 Dye Jig Operator Relationship Specialty Start Date End Date Farhat Pineda MD PCP - General Family Medicine 01/13/11 Farhat Pineda MD Referring Family Medicine 01/08/22 Dye Jig Operator Relationship Specialty Start Date End Date Farhat Pineda MD PCP - General Family Medicine 01/13/11 Farhat Pineda MD Referring Family Medicine 01/08/22 Dye Jig Operator Relationship Specialty Start Date End Date Farhat Pineda MD PCP - General Family Medicine 01/13/11 Farhat Pineda MD Referring Family Medicine 01/08/22 Dye Jig Operator Relationship Specialty Start Date End Date Farhat Pineda MD PCP - General Family Medicine 01/13/11 Farhat Pineda MD Referring Family Medicine 01/08/22 Dye Jig Operator Relationship Specialty Start Date End Date Farhat Pineda MD PCP - General Family Medicine 01/13/11 Dye Jig Operator Relationship Specialty Start Date End Date Farhat Pineda MD PCP - General Family Medicine 01/13/11 Farhat Pineda MD Referring Family Medicine 01/08/22 Dye Jig Operator Relationship Specialty Start Date End Date Farhat Pineda MD PCP - General Family Medicine 01/13/11 Dye Jig Operator Relationship Specialty Start Date End Date Farhat Pineda MD PCP - General Family Medicine 01/13/11 Farhat Pineda MD Referring Family Medicine 01/08/22 Dye Jig Operator Relationship Specialty Start Date End Date Farhat Pineda MD PCP - General Family Medicine 01/13/11 Farhat Pineda MD Referring Family Medicine 01/08/22 Dye Jig Operator Relationship Specialty Start Date End Date Farhat Pineda MD PCP - General Family Medicine 01/13/11 Farhat Pineda MD Referring Family Medicine 01/08/22 Team Status: Inactive Member Role Status Dates Farhat Pineda MD Primary Care Provider Active Bipin Roth Jr, MD Emergency Provider Active Dye Jig Operator Relationship Specialty Start Date End Date Farhat Pineda MD PCP - General Family Medicine 01/13/11 Farhat Pineda MD Referring Family Medicine 01/08/22 Team Status: Inactive Member Role Status Dates Candice Sifuentes DO Emergency Provider Active Farhat Pineda MD Primary Care Provider Active Dye Jig Operator Relationship Specialty Start Date End Date Farhat Pineda MD PCP - General Family Medicine 01/13/11 Farhat Pineda MD Referring Family Medicine 01/08/22 Dye Jig Operator Relationship Specialty Start Date End Date Farhat Pineda MD PCP - General Family Medicine 01/13/11 Farhat Pineda MD Referring Family Medicine 01/08/22 Dye Jig Operator Relationship Specialty Start Date End Date Farhat Pineda MD PCP - General Family Medicine 01/13/11 Farhat Pineda MD Referring Family Medicine 01/08/22 Dye Jig Operator Relationship Specialty Start Date End Date Farhat Pineda MD PCP - General Family Medicine 01/13/11 Farhat Pineda MD Referring Family Medicine 01/08/22 Dye Jig Operator Relationship Specialty Start Date End Date Farhat Pineda MD PCP - General Family Medicine 01/13/11 Farhat Pineda MD Referring Family Medicine 01/08/22 Dye Jig Operator Relationship Specialty Start Date End Date Farhat Pineda MD PCP - General Family Medicine 01/13/11 Farhat Pineda MD Referring Family Medicine 01/08/22 Dye Jig Operator Relationship Specialty Start Date End Date Farhat Pineda MD PCP - General Family Medicine 01/13/11 Farhat Pineda MD Referring Family Medicine 01/08/22 Dye Jig Operator Relationship Specialty Start Date End Date Farhat Pineda MD PCP - General Family Medicine 01/13/11 Farhat Pineda MD Referring Family Medicine 01/08/22 Dye Jig Operator Relationship Specialty Start Date End Date Farhat Pineda MD PCP - General Family Medicine 01/13/11 Farhat Pineda MD Referring Family Medicine 01/08/22 Dye Jig Operator Relationship Specialty Start Date End Date Farhat Pineda MD PCP - [facility] Medicine 01/13/11 Farhat Pineda MD Referring Family Medicine 01/08/22 Dye Jig Operator Relationship Specialty Start Date End Date Farhat Pineda MD PCP - General Family Medicine 01/13/11 Farhat Pineda MD Referring Family Medicine 01/08/22 Goals (unrecognized section and content) Goals may be documented in a n alternate section FOR RECORDS PERTAINING TO PATIENTS WHO ARE OR HAVE BEEN ENROLLED IN A CHEMICAL DEPENDENCY/SUBSTANCEABUSE PROGRAM, SOME INFORMATION MAY BE OMITTED. This clinical summary was aggregated from multiple sources. Caution should be exercised in using it in the provision of clinical care. This summary normalizes information from multiple sources, and as a consequence, information in this document may materially change the coding, format and clinical context of patient data. In addition, data may be omitted in some cases. CLINICAL DECISIONS SHOULD BE BASED ON THE PRIMARY CLINICAL RECORDS. [employer] [facility]. provides no warranty or guarantee of the accuracy or completeness of information in this document.
--- NOTE | 2023-06-16 07:42 | US_ITS ---
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 FINDINGS: The right thyroid lobe measures 4.4 x 1.2 x 1.4 cm. Heterogeneous echotexture. Single nodule. Nodule 1:0.8 x 0.6 x 0.5 cm. Solid, hyperechoic, wide, smooth margins, no consultations. TR 3 The thyroid isthmus is absent The left thyroid lobe measures 2.0 x 0.7 x 1.1 cm. Heterogeneous. No focal nodule. US/US thyroid IMPRESSION: Recurrent/residual thyroid tissue detailed above with a 0.8 cm right thyroid TR3 nodule TI-RADS: The [employer] TI-RADS committee's white paper recommendations for thyroid lesions classified as TR3 (mildly suspicious) are listed below: > 1.5 cm. Follow-up ultrasound in 1, 3, and 5 years. > 2.5 cm. FNA. J. Am Shawn Radiol 2017;14:587-595. Electronically authenticated by: DEEJAY COOPER Date: 06/16/2023 09:12
[2023-06-16 08:16] LABS: Basophils Percent Auto 0.5 % (0.2-2.0); Eosinophils Absolute Auto 0.2 10^3/uL (0.0-0.7); Eosinophils Percent Auto 2.5 % (0.9-7.0); Hematocrit 39.9 % (36.0-48.0); Hemoglobin 12.3 g/dL (12.0-16.0); Immature Granulocytes Abs Auto 0.03 10^3/uL (0.00-0.03); Immature Granulocytes Pct Auto 0.5 % (0.0-0.5); Mean Corpuscular HGB Conc 30.8 g/dL (29.9-35.2); Mean Corpuscular Hemoglobin 27.7 pg (26.7-34.0); Mean Corpuscular Volume 89.9 fL (81.0-99.0); Mean Platelet Volume 11.2 fL (9.5-13.5); Monocytes Absolute Auto 0.6 10^3/uL (0.3-0.8); Monocytes Percent Auto 9.8 % (1.7-12.0); Neutrophils Absolute Auto 3.6 10^3/uL (1.4-6.5); Neutrophils Percent Auto 55.7 % (43.0-75.0); Platelet Count 275 10^3/uL (150-450); Red Blood Count 4.44 10^6/uL (4.20-5.40); Red Cell Distribution Width 14.4 % (11.0-15.0); White Blood Count 6.5 10^3/uL (4.0-11.0)
[2023-06-16 10:46] LABS: Alanine Aminotransferase 76 U/L (14-59); Albumin Level 3.8 g/dL (3.4-5.0); Alkaline Phosphatase 180 U/L (46-116); Anion Gap 14.1; Aspartate Amino Transferase 41 U/L (15-37); BUN Creatinine Ratio 15.6; Bilirubin Total 0.4 mg/dL (0.2-1.0); Calcium 9.5 mg/dL (8.5-10.1); Chloride 104 mmol/L (98-107); Estimated GFR (African America >60 (>=60); Estimated GFR (Non-African Ame >60 (>=60); Free T3 2.79 pg/mL (2.18-3.98); Globulin 3.9 g/dL; Glucose 100 mg/dL (74-106); Potassium 4.1 mmol/L (3.5-5.1); Sodium 140 mmol/L (136-145); Thyroid Stimulating Hormone 2.496 uIU/mL (0.358-3.740); Total Protein 7.7 g/dL (6.4-8.2)
[2023-06-17 16:10] LABS: Thyroglobulin Antibody 6.3 IU/mL (0.0-0.9); Thyroid Peroxidase (TPO) Ab 87 IU/mL (0-34)
[2023-06-18 08:13] LABS: QuantiFERON-TB Gold Plus Negative (Negative)
== END 2023-06-16 07:03 | disposition home or self-care (01) ==
LOC: US 07:03
PROVIDERS: PCP Family Medicine; Visit Provider Family Medicine
DX: E06.3 Autoimmune thyroiditis (principal); I50.30 Unspecified diastolic (congestive) heart failure; Z20.1 Contact with and (suspected) exposure to tuberculosis; E04.1 Nontoxic single thyroid nodule; I11.0 Hypertensive heart disease with heart failure
CPT/HCPCS: 36415; 76536; 80053; 83880; 84432; 84436; 84443; 84481; 85025; 86376; 86480; 86800

== ENCOUNTER 2023-06-24 14:56 | Observation (INO) | payer OTHER, SELFPAY ==
[2023-06-24] VITALS (19 sets, daily range): BP systolic 105–141; BP diastolic 69–85; PULSE 72–92; TEMP 36.7–36.8; O2SAT 75–100; BMI 45.6; BMI 46.5
--- NOTE | 2023-06-24 15:01 | CT_ITS ---
The [address] [address] Patient Name: PRADIP MORFIN MRN: [id number] date: 1975 Sex: F Assigned Patient Location: ER Current Patient Location: Accession/Order Number: [id number] Exam Date: 06/24/2023 15:55 Report Date: 06/24/2023 16:49 At the request of: ZACHARY CHRISTINA Procedure: CT angio neck CT angio head, CT angio neck, 06/24/2023 3:55 PM EDT INDICATION: CVA symptoms COMPARISON: Prior CT of the head of the same date TECHNIQUE: Pre and postcontrast enhanced CT angiography of the head and neck were acquired with contrast .3 D MIP images were reconstructed in sagittal and coronal format at the scanner and were evaluated at the time of dictation. Dose reduction techniques were achieved by using automated exposure control and/or adjustment of mA and/or kV according to patient size and/or use of iterative reconstruction technique. FINDINGS: The great vessels enhance normally. No filling defects are identified within the carotid arteries. There is no stenosis at the origin of the internal carotid arteries. No abnormality of [place] is noted. The HERIBERTO MCA and [employer] MOL[employer] are unremarkable. The anterior and posterior communicating arteries are patent. There is no aneurysm or significant stenosis. No abnormality of the vertebral and basilar arteries is noted. No mass, mass effect or midline shift or hemorrhage in the brain parenchyma is noted. No significant soft tissue abnormality within the neck is noted. The visualized portion of the lungs is unremarkable. No suspicious bone lesion is noted. Multilevel degenerative changes of cervical spine. CT/CT angio neck IMPRESSION: No CT evidence of embolus or severe stenosis or dissection in the major arteries in the current study. CAROTID STENOSIS REFERENCE: MILD = <50% stenosis. MODERATE = 50-69% stenosis. SEVERE = >70% stenosis. Electronically authenticated by: JAYDA MEYER Date: 06/24/2023 16:49
--- NOTE | 2023-06-24 15:01 | ECG_ITS ---
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
--- NOTE | 2023-06-24 15:01 | CT_ITS ---
The [address] [address] Patient Name: PRADIP MORFIN MRN: [id number] date: 1975 Sex: F Assigned Patient Location: ER Current Patient Location: Accession/Order Number: [id number] Exam Date: 06/24/2023 15:55 Report Date: 06/24/2023 16:49 At the request of: ZACHARY CHRISTINA Procedure: CT angio head CT angio head, CT angio neck, 06/24/2023 3:55 PM EDT INDICATION: CVA symptoms COMPARISON: Prior CT of the head of the same date TECHNIQUE: Pre and postcontrast enhanced CT angiography of the head and neck were acquired with contrast .3 D MIP images were reconstructed in sagittal and coronal format at the scanner and were evaluated at the time of dictation. Dose reduction techniques were achieved by using automated exposure control and/or adjustment of mA and/or kV according to patient size and/or use of iterative reconstruction technique. FINDINGS: The great vessels enhance normally. No filling defects are identified within the carotid arteries. There is no stenosis at the origin of the internal carotid arteries. No abnormality of [place] of [place] is noted. The HERIBERTO MCA and [employer] are unremarkable. The anterior and posterior communicating arteries are patent. There is no aneurysm or significant stenosis. No abnormality of the vertebral and basilar arteries is noted. No mass, mass effect or midline shift or hemorrhage in the brain parenchyma is noted. No significant soft tissue abnormality within the neck is noted. The visualized portion of the lungs is unremarkable. No suspicious bone lesion is noted. Multilevel degenerative changes of cervical spine. CT/CT angio head IMPRESSION: No CT evidence of embolus or severe stenosis or dissection in the major arteries in the current study. CAROTID STENOSIS REFERENCE: MILD = <50% stenosis. MODERATE = 50-69% stenosis. SEVERE = >70% stenosis. Electronically authenticated by: JAYDA MEYER Date: 06/24/2023 16:49
--- NOTE | 2023-06-24 15:01 | CT_ITS ---
The [address] [address] Patient Name: PRADIP MORFIN MRN: [id number] date: 1975 Sex: F Assigned Patient Location: ER Current Patient Location: ER Accession/Order Number: [id number] Exam Date: 06/24/2023 15:07 Report Date: 06/24/2023 15:22 At the request of: ZACHARY CHRISTINA Procedure: CT stroke head/brain wo con NONCONTRAST HEAD CT COMPARISON: None. CLINICAL HISTORY: Headache and numbness. TECHNIQUE: Routine noncontrast images of the brain obtained. CT examination of the head without IV contrast. Dose reduction techniques were achieved by using: automated exposure control and/or adjustment of mA and /or kV according to patient size and/or use of iterative reconstruction technique. FINDINGS: Paranasal sinuses and mastoid air cells are clear. Intraorbital contents are unremarkable. No acute bony abnormality. Intracranially, there is no evidence of hemorrhage, mass effect, or midline shift. Ventricles and cisternal spaces are age appropriate. CT/CT stroke head/brain wo con IMPRESSION: No acute intracranial abnormality. Electronically authenticated by: GERMANIA STEIN Date: 06/24/2023 15:22
--- NOTE | 2023-06-24 15:23 | ED_ITS ---
HPI HPI - General Adult General Chief complaint: Dizziness Stated complaint: CVA SYMPTOMS Time Seen by Provider: 06/24/23 15:01 Source: patient Mode of arrival: Wheelchair History of Present Illness HPI narrative: Patient is a 47-year-old female who presents to the emergency department for neurosymptoms that began yesterday. She was referred by her primary care provider. She states that she had an onset of tunnel vision, global/frontal headache and numbness and tingling throughout her entire body that began yesterday. 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 She was not better today so she went to see her PCP and he referred her to the ER for admission and neuro work-up. She states she feels as though her left hand is pulling, no falls or injuries. She states she feels dizzy as though the room is spinning. No fevers, vomiting, chest pain or shortness of breath. No recent illness. Related Data Home Medications ?Medication ?Instructions ?Recorded ?Confirmed blood sugar diagnostic (FreeStyle 02/10/23 05/19/23 Lite Strips) blood-glucose meter (FreeStyle 02/10/23 05/19/23 [place] Lite kit) levothyroxine 75 mcg tablet 75 mcg PO QAM 02/10/23 05/19/23 pantoprazole 40 mg tablet,delayed 40 mg PO Q24H PRN stomach upset 02/10/23 05/19/23 release ropinirole 1 mg tablet 1 mg PO .qhs PRN restless leg(s) 02/10/23 05/19/23 albuterol sulfate 90 mcg/actuation 1 puff inhalation Q4H PRN 05/19/23 05/19/23 aerosol inhaler shortness of breath or wheezing aripiprazole 5 mg tablet (Abilify) 5 mg PO .QHS 05/19/23 05/19/23 cyanocobalamin (vitamin B-12) 1,000 mcg IM Q30D 05/19/23 05/19/23 1,000 mcg/mL injection solution dulaglutide 3 mg/0.5 mL 3 mg subcut QWEEK 05/19/23 05/19/23 subcutaneous pen injector ([facility]) ergocalciferol (vitamin D2) 1,250 1,250 mcg PO .3XWEEK 05/19/23 05/19/23 mcg (50,000 unit) capsule lorazepam 1 mg tablet 1 mg PO TID PRN anxiety 05/19/23 05/19/23 mirtazapine 7.5 mg tablet 7.5 mg PO .qhs 05/19/23 05/19/23 propranolol 10 mg tablet 10 mg PO QID 05/19/23 05/19/23 sumatriptan succinate 100 mg tablet 100 mg PO Q2H PRN migraine headache 05/19/23 05/19/23 zolpidem 10 mg tablet 10 mg PO .qhs 05/19/23 05/19/23 Previous Rx's ?Medication ?Instructions ?Recorded promethazine 25 mg tablet 25 mg PO Q6H PRN nausea and 02/12/23 vomiting #30 tabs levothyroxine 75 mcg tablet 75 mcg PO DAILY #30 tabs 05/21/23 (Synthroid) promethazine 25 mg tablet 25 mg PO Q4H PRN nausea and 05/21/23 vomiting #60 tabs Allergies Allergy/AdvReac Type Severity Reaction Status Date / Time ibuprofen [From Motrin] Allergy Unknown GI bleed Verified 02/10/23 14:24 scopolamine AdvReac psychosis Verified 02/10/23 14:24 Opioid HPI Opioid Management Most Recent Opioid Data: Last Pain Scale 7 05/21/23 04:00 Last ORT Total Score 10 05/19/23 14:49 Last ORT Risk Category High Risk 05/19/23 14:49 Ur Phencyclidine Scrn Negative (NEGATIVE) 05/19/23 12:44 Review of Systems ROS Constitutional Denies: fever or chills Eyes Reports: change in vision Ears, nose, mouth, and throat Denies: throat pain or nasal congestion Cardiovascular Denies: chest pain Respiratory Denies: shortness of breath Gastrointestinal Denies: nausea or vomiting Musculoskeletal Denies: back pain Integumentary/Breast Denies: rash Neurological Reports: headache, numbness in extremities, weakness in extremities and dizziness Endocrine Denies: excessive urination Hematologic/Lymphatic Denies: easy bruising or easy bleeding [facility] Medical History (Updated 06/24/23 @ 17:10 by EVA Candelario) Alcohol abuse ?F10.10 - Alcohol abuse, uncomplicated (ICD-10) TALIA (obstructive sleep apnea) ?G47.33 - Obstructive sleep apnea (adult) (pediatric) (ICD-10) GI bleed ?K92.2 - Gastrointestinal hemorrhage, unspecified (ICD-10) Incarcerated paraesophageal hernia ?K44.0 - Diaphragmatic hernia with obstruction, without gangrene (ICD-10) Fibromyalgia ?M79.7 - Fibromyalgia (ICD-10) Thyroid cancer ?C73 - Malignant neoplasm of thyroid gland (ICD-10) Dehydration ?E86.0 - Dehydration (ICD-10) Anxiety ?F41.9 - Anxiety disorder, unspecified (ICD-10) Depression ?F32.A - Depression, unspecified (ICD-10) Surgical History (Updated 05/19/23 @ 15:06 by Annemarie Anderson) H/O bariatric surgery ?Z98.84 - Bariatric surgery status (ICD-10) History of cholecystectomy ?Z90.49 - Acquired absence of other specified parts of digestive tract (ICD- 10) Family History (Updated 05/19/23 @ 15:02 by Annemarie Anderson) Father Family history of CHF (congestive heart failure) Family history of diabetes mellitus Family history of hypertension Family history of myocardial infarction Family history of stroke Mother Family history of COPD (chronic obstructive pulmonary disease) Grandmother Family history of cancer Family history of diabetes mellitus Social History Within the past year, how often did you have a drink containing alcohol: 4 or more times a week Within the past year, how many standard drinks containing alcohol did you have on a typical day: 10 or more Within the past year, how often did you have six or more drinks on one occasion: daily or almost daily Total score: 12 Score interpretation: A score of 3 or more indicates drinking is likely to affect patient's safety. Non-prescribed substance use: cannabis (any form) Highest level of school completed/degree received: high school graduate Little interest or pleasure in doing things: nearly every day Feeling down, depressed, or hopeless: nearly every day Feel stressed/tense/nervous/anxious/difficulty sleeping: very much Life stressors: recent of family or friend Life stressor details: Dad , lost job, son got other son left alone with 3 kids Exam Narrative Exam Narrative: Gen.: Awake, alert, in no distress Head: Normocephalic, atraumatic ENT: Moist mucous membranes Respiratory: No respiratory distress, lungs clear bilaterally Cardio: Regular rate and rhythm Extremities: Moves extremities equally, Global weakness in the extremities, no pronator drift Psych: Normal mood and affect Neuro: No focal neuro deficit Skin: Warm, dry, intact Constitutional Vital Signs, click to edit/add: Last Vital Signs Temp 98.3 F 06/24/23 15:02 Pulse 81 06/24/23 16:10 Resp 34 H 06/24/23 16:10 BP 125/78 06/24/23 15:02 Pulse Ox 92 L 06/24/23 16:10 O2 Del Method Room Air 06/24/23 15:02 Course Vital Signs Vital signs: Vital Signs Temperature 98.3 F 06/24/23 15:02 Pulse Rate 76 06/24/23 15:02 Respiratory Rate 22 H 06/24/23 15:02 Blood Pressure 125/78 06/24/23 15:02 Pulse Oximetry 98 06/24/23 15:02 Oxygen Delivery Method Room Air 06/24/23 15:02 Temperature 98.3 F 06/24/23 15:02 Pulse Rate 81 06/24/23 16:10 Respiratory Rate 34 H 06/24/23 16:10 Blood Pressure 125/78 06/24/23 15:02 Pulse Oximetry 92 L 06/24/23 16:10 Oxygen Delivery Method Room Air 06/24/23 15:02 Medical Decision Making MDM Narrative Medical decision making narrative: Patient complains of generalized shaking and headache in the ER. She was treated with Valium for dizziness, shaking. Her vital signs are within normal limits. She was initially sent for a noncontrast CT of the brain with stroke protocol. This was read as negative. She was sent for additional CT angio of the head and neck which also shows no evidence of stenosis or abnormality. Patient will be admitted for further evaluation and treatment to Dr. Cabezas. Lab studies are stable in the ER. Medical Records Medical records reviewed: Yes I reviewed the patient's medical records Lab Data Lab results reviewed: Yes I reviewed the patient's lab results Labs: Lab Results 06/24/23 Range/Units 15:15 WBC 8.0 (4.0-11.0) 10^3/uL RBC 4.21 (4.20-5.40) 10^6/uL Hgb 11.5 L (12.0-16.0) g/dL Hct 37.4 (36.0-48.0) % MCV 88.8 (81.0-99.0) fL MCH 27.3 (26.7-34.0) pg MCHC 30.7 (29.9-35.2) g/dL RDW 13.9 (11.0-15.0) % Plt Count 226 (150-450) 10^3/uL MPV 11.1 (9.5-13.5) fL Neut % (Auto) 60.3 (43.0-75.0) % Lymph % (Auto) 28.1 (20.5-60.0) % [place] % (Auto) 8.4 (1.7-12.0) % Eos % (Auto) 2.1 (0.9-7.0) % Baso % (Auto) 0.6 (0.2-2.0) % Neut # (Auto) 4.8 (1.4-6.5) 10^3/uL Lymph # (Auto) 2.2 (1.2-3.8) 10^3/uL [place] # (Auto) 0.7 (0.3-0.8) 10^3/uL Eos # (Auto) 0.2 (0.0-0.7) 10^3/uL Baso # (Auto) 0.1 (0.0-0.1) 10^3/uL Abs Immat Gran (auto) 0.04 H (0.00-0.03) 10^3/uL Imm/Tot Granulo (auto) 0.5 (0.0-0.5) % PT 10.3 (9.0-11.6) sec INR 0.97 Sodium 142 (136-145) mmol/L Potassium 3.9 (3.5-5.1) mmol/L Chloride 107 (98-107) mmol/L Carbon Dioxide 30.5 (21.0-32.0) mmol/L Anion Gap 8.4 BUN 13.0 (7.0-18.0) mg/dL Creatinine 1.09 H (0.55-1.02) mg/dL Est GFR ( Amer) >60 (>=60) Est GFR (Non-Af Amer) 53 L (>=60) BUN/Creatinine Ratio 11.9 Glucose 97 (74-106) mg/dL Calcium 8.5 (8.5-10.1) mg/dL Magnesium 2.1 (1.8-2.4) mg/dL Total Bilirubin 0.2 (0.2-1.0) mg/dL AST 48 H (15-37) U/L ALT 97 H (14-59) U/L Alkaline Phosphatase 186 H (46-116) U/L Troponin I High Sens 4.4 (4.0-51.3) pg/mL Total Protein 6.8 (6.4-8.2) g/dL Albumin 3.3 L (3.4-5.0) g/dL Globulin 3.5 g/dL Albumin/Globulin Ratio 0.9 TSH 1.106 (0.358-3.740) uIU/mL Ethanol Quant <3 mg/dL Imaging Data CT scan - head: Attestation: I have reviewed the pertinent imaging results. Radiologist's impression: ITS Impressions Brain CT 06/24/23 15:01 IMPRESSION: No acute intracranial abnormality. Electronically authenticated by: GERMANIA STEIN Date: 06/24/2023 15:22 Head CTA 06/24/23 15:01 IMPRESSION: No CT evidence of embolus or severe stenosis or dissection in the major arteries in the current study. CAROTID STENOSIS REFERENCE: MILD = <50% stenosis. MODERATE = 50-69% stenosis. SEVERE = >70% stenosis. Electronically authenticated by: JAYDA MEYER Date: 06/24/2023 16:49 Neck CTA 06/24/23 15:01 IMPRESSION: No CT evidence of embolus or severe stenosis or dissection in the major arteries in the current study. CAROTID STENOSIS REFERENCE: MILD = <50% stenosis. MODERATE = 50-69% stenosis. SEVERE = >70% stenosis. Electronically authenticated by: JAYDA MEYER Date: 06/24/2023 16:49 ECG Data Attestation: I personally reviewed and interpreted this ECG as follows: (Normal sinus rhythm at a rate of 75, no acute ST elevation or ectopy. Artifact noted. EKG reviewed by attending physician) Discharge Plan Discharge Chief Complaint: Dizziness Clinical Impression: Paresthesia, Dizziness, Headache Patient Disposition: Admitted as Observation Time of Disposition Decision: 17:10 Condition: Good Prescriptions / Home Meds: No Action (DME) FreeStyle Lite Strips Strip MISCELLANEOUS (DME) blood-glucose meter [FreeStyle [place] Lite] Kit MISCELLANEOUS ropinirole 1 mg tablet 1 mg PO .qhs PRN (Reason: restless leg(s)) Rx Instructions: 1 to 3 hours before bedtime pantoprazole 40 mg tablet,delayed release (DR/EC) 40 mg PO Q24H PRN (Reason: stomach upset) levothyroxine 75 mcg tablet 75 mcg PO QAM Hold Instructions: HAS NOT TAKEN IN MONTHS BUT WOULD LIKE LEVELS DRAWN promethazine 25 mg tablet 25 mg PO Q6H PRN (Reason: nausea and vomiting) Qty: 30 11RF mirtazapine 7.5 mg tablet 7.5 mg PO .qhs zolpidem 10 mg tablet 10 mg PO .qhs albuterol sulfate 90 mcg/actuation HFA aerosol inhaler 1 puff INHALATION Q4H PRN (Reason: shortness of breath or wheezing) cyanocobalamin (vitamin B-12) 1,000 mcg/mL solution 1,000 mcg IM Q30D Rx Instructions: FILLED 05/04/23 Trulicity 3 mg/0.5 mL pen injector 3 mg SUBCUT QWEEK Patient Comments: WEDS WITH EVEENING MEAL ergocalciferol (vitamin D2) 1,250 mcg (50,000 unit) capsule 1,250 mcg PO .3XWEEK Patient Comments: TUES/THURS/SAT lorazepam 1 mg tablet 1 mg PO TID PRN (Reason: anxiety) propranolol 10 mg tablet 10 mg PO QID sumatriptan succinate 100 mg tablet 100 mg PO Q2H PRN (Reason: migraine headache) aripiprazole [Abilify] 5 mg tablet 5 mg PO .QHS levothyroxine [Synthroid] 75 mcg tablet 75 mcg PO DAILY Qty: 30 11RF promethazine 25 mg tablet 25 mg PO Q4H PRN (Reason: nausea and vomiting) Qty: 60 11RF Print Language: Divehi Referrals: Farhat Cabezas MD [Primary Care Provider] - 1 week
[2023-06-24 15:28] LABS: Basophils Absolute Auto 0.1 10^3/uL (0.0-0.1); Basophils Percent Auto 0.6 % (0.2-2.0); Eosinophils Absolute Auto 0.2 10^3/uL (0.0-0.7); Eosinophils Percent Auto 2.1 % (0.9-7.0); Hematocrit 37.4 % (36.0-48.0); Hemoglobin 11.5 g/dL (12.0-16.0); Immature Granulocytes Abs Auto 0.04 10^3/uL (0.00-0.03); Immature Granulocytes Pct Auto 0.5 % (0.0-0.5); Lymphocytes Absolute Auto 2.2 10^3/uL (1.2-3.8); Lymphocytes Percent Auto 28.1 % (20.5-60.0); Mean Corpuscular HGB Conc 30.7 g/dL (29.9-35.2); Mean Corpuscular Hemoglobin 27.3 pg (26.7-34.0); Mean Corpuscular Volume 88.8 fL (81.0-99.0); Mean Platelet Volume 11.1 fL (9.5-13.5); Monocytes Absolute Auto 0.7 10^3/uL (0.3-0.8); Monocytes Percent Auto 8.4 % (1.7-12.0); Neutrophils Absolute Auto 4.8 10^3/uL (1.4-6.5); Neutrophils Percent Auto 60.3 % (43.0-75.0); Platelet Count 226 10^3/uL (150-450); Red Blood Count 4.21 10^6/uL (4.20-5.40); Red Cell Distribution Width 13.9 % (11.0-15.0)
[2023-06-24] MEDS: DIAZEPAM 10 MG/2 ML SYRINGE 5 MG IM (15:39)
[2023-06-24] MEDS: ONDANSETRON PF 4 MG/2 ML VIAL IV (15:39)
[2023-06-24] MEDS: 0.9 % SODIUM CHLORIDE 1,000 ML 1000 ML IV (15:43)
[2023-06-24 15:46] LABS: INR 0.97; Prothrombin Time 10.3 sec (9.0-11.6)
[2023-06-24 15:48] LABS: Alanine Aminotransferase 97 U/L (14-59); Albumin Globulin Ratio 0.9; Albumin Level 3.3 g/dL (3.4-5.0); Alkaline Phosphatase 186 U/L (46-116); Anion Gap 8.4; Aspartate Amino Transferase 48 U/L (15-37); BUN Creatinine Ratio 11.9; Bilirubin Total 0.2 mg/dL (0.2-1.0); Calcium 8.5 mg/dL (8.5-10.1); Carbon Dioxide 30.5 mmol/L (21.0-32.0); Chloride 107 mmol/L (98-107); Estimated GFR (African America >60 (>=60); Estimated GFR (Non-African Ame 53 (>=60); Ethanol <3 mg/dL; Globulin 3.5 g/dL; Glucose 97 mg/dL (74-106); Magnesium 2.1 mg/dL (1.8-2.4); Potassium 3.9 mmol/L (3.5-5.1); Sodium 142 mmol/L (136-145); Thyroid Stimulating Hormone 1.106 uIU/mL (0.358-3.740); Total Protein 6.8 g/dL (6.4-8.2); Troponin I High Sensitivity 4.4 pg/mL (4.0-51.3)
--- NOTE | 2023-06-24 17:41 | P.HP_ITS ---
HPI H&P: HPI History of Present Illness Chief complaint: CVA SYMPTOMS, Dizziness, Paresthesia, Headache Narrative: Patient was seen and evaluated in the office with what she states is left arm weakness. Also some generalized weakness. No dysarthria, no trouble swallowing. No with the neurological changes patient was referred to ER When I saw patient in the emergency room after evaluation by emergency room personnel, she was resting comfortably at that point. Still describes left arm weakness. CT scan of her head and CTAs were negative. Patient admitted to observation Opioid HPI Opioid Management Most Recent Opioid Data: Last Pain Scale 8 06/24/23 20:00 Last Pain Assessment 06/24/23 21:00 Last ORT Total Score 8 06/24/23 18:22 Last ORT Risk Category High Risk 06/24/23 18:22 Ur Phencyclidine Scrn Negative (NEGATIVE) 05/19/23 12:44 PFSH PFSH Medical History (Updated 06/24/23 @ 17:10 by EVA Candelario) Alcohol abuse ?F10.10 - Alcohol abuse, uncomplicated (ICD-10) TALIA (obstructive sleep apnea) ?G47.33 - Obstructive sleep apnea (adult) (pediatric) (ICD-10) GI bleed ?K92.2 - Gastrointestinal hemorrhage, unspecified (ICD-10) Incarcerated paraesophageal hernia ?K44.0 - Diaphragmatic hernia with obstruction, without gangrene (ICD-10) Fibromyalgia ?M79.7 - Fibromyalgia (ICD-10) Thyroid cancer ?C73 - Malignant neoplasm of thyroid gland (ICD-10) Dehydration ?E86.0 - Dehydration (ICD-10) Anxiety ?F41.9 - Anxiety disorder, unspecified (ICD-10) Depression ?F32.A - Depression, unspecified (ICD-10) Surgical History (Updated 05/19/23 @ 15:06 by Annemarie Anderson) H/O bariatric surgery ?Z98.84 - Bariatric surgery status (ICD-10) History of cholecystectomy ?Z90.49 - Acquired absence of other specified parts of digestive tract (ICD- 10) Family History (Updated 05/19/23 @ 15:02 by Annemarie Anderson) Father Family history of CHF (congestive heart failure) Family history of diabetes mellitus Family history of hypertension Family history of myocardial infarction Family history of stroke Mother Family history of COPD (chronic obstructive pulmonary disease) Grandmother Family history of cancer Family history of diabetes mellitus Social History (Updated 06/24/23 @ 18:20 by Jocelyne Gonzales) Within the past year, how often did you have a drink containing alcohol: 4 or more times a week Within the past year, how many standard drinks containing alcohol did you have on a typical day: 10 or more Within the past year, how often did you have six or more drinks on one occasion: daily or almost daily Total score: 12 Score interpretation: A score of 3 or more indicates drinking is likely to affect patient's safety. 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 Highest level of school completed/degree received: high school graduate In a typical week, how many times do you talk on the telephone with family, friends, or neighbors: 3 or more times per week How often do you get together with friends or relatives: 3 or more times per week How often do you attend pentecostal or amish services: 1-3 times per year Do you belong to any clubs or organizations such as pentecostal groups unions, [employer] or athletic groups, or school groups: no Little interest or pleasure in doing things: nearly every day Feeling down, depressed, or hopeless: nearly every day Feel stressed/tense/nervous/anxious/difficulty sleeping: very much Life stressors: recent of family or friend Life stressor details: Dad , lost job, son got other son left alone with 3 kids Gender Identity: female Meds Home Medications and Allergies Home Medications ?Medication ?Instructions ?Recorded ?Confirmed ?Type blood sugar diagnostic (FreeStyle 02/10/23 06/24/23 History Lite Strips) blood-glucose meter (FreeStyle 02/10/23 06/24/23 History [place] Lite kit) levothyroxine 75 mcg tablet 75 mcg PO QAM 02/10/23 06/24/23 History pantoprazole 40 mg tablet,delayed 40 mg PO Q24H PRN stomach upset 02/10/23 06/24/23 History release ropinirole 1 mg tablet 1 mg PO .qhs PRN restless leg(s) 02/10/23 06/24/23 History albuterol sulfate 90 mcg/actuation 1 puff inhalation Q4H PRN 05/19/23 06/24/23 History aerosol inhaler shortness of breath or wheezing aripiprazole 5 mg tablet (Abilify) 5 mg PO .QHS 05/19/23 06/24/23 History cyanocobalamin (vitamin B-12) 1,000 mcg IM Q30D 05/19/23 06/24/23 History 1,000 mcg/mL injection solution dulaglutide 3 mg/0.5 mL 3 mg subcut QWEEK 05/19/23 06/24/23 History subcutaneous pen injector (Trulicity) ergocalciferol (vitamin D2) 1,250 1,250 mcg PO .3XWEEK 05/19/23 06/24/23 History mcg (50,000 unit) capsule lorazepam 1 mg tablet 1 mg PO TID PRN anxiety 05/19/23 06/24/23 History propranolol 10 mg tablet 10 mg PO QID 05/19/23 06/24/23 History sumatriptan succinate 100 mg tablet 100 mg PO Q2H PRN migraine headache 05/19/23 06/24/23 History promethazine 25 mg tablet 25 mg PO Q4H PRN nausea and 05/21/23 06/24/23 Rx vomiting #60 tabs diazepam 2 mg tablet 2 mg PO Q8H PRN alcohol withdrawal 06/24/23 06/24/23 History folic acid 1 mg tablet 1 mg PO DAILY 06/24/23 06/24/23 History gabapentin 300 mg capsule 300 mg PO Q8H 06/24/23 06/24/23 History hydroxyzine pamoate 50 mg capsule 50 mg PO Q6H PRN anxiety 06/24/23 06/24/23 History mirtazapine 15 mg tablet 15 mg PO .QHS 06/24/23 06/24/23 History olanzapine 5 mg tablet 5 mg PO Q6H PRN agitation 06/24/23 06/24/23 History thiamine HCl (vitamin B1) 100 mg 100 mg PO BID 06/24/23 06/24/23 History tablet zolpidem 12.5 mg tablet,extended 12.5 mg PO .QHS 06/24/23 06/24/23 History release,multiphase Allergies Allergy/AdvReac Type Severity Reaction Status Date / Time ibuprofen [From Motrin] Allergy Unknown GI bleed Verified 02/10/23 14:24 scopolamine AdvReac psychosis Verified 02/10/23 14:24 Exam Constitutional Vital Signs, click to edit/add: Last Vital Signs Temp 98.3 F 06/24/23 15:02 Pulse 72 06/24/23 17:30 Resp 18 06/24/23 17:30 BP 125/78 06/24/23 15:02 Pulse Ox 97 06/24/23 17:30 O2 Del Method Room Air 06/24/23 15:02 Documenting provider has reviewed patient's vital signs: yes Common normals: no apparent distress Exam limitations: no altered mental status Lymph Lymphatic: no lymphadenopathy noted Chest Common normals: inspection of chest normal and palpation of chest normal Respiratory Common normals: normal respiratory effort and no retractions Cardio Common normals: regular rate, regular rhythm and S1 normal heart sound Results Labs Labs: Short CBC 06/24/23 Range/Units 15:15 WBC 8.0 (4.0-11.0) 10^3/uL Hgb 11.5 L (12.0-16.0) g/dL Hct 37.4 (36.0-48.0) % Plt Count 226 (150-450) 10^3/uL BMP 06/24/23 15:15 Sodium 142 Potassium 3.9 Chloride 107 Carbon Dioxide 30.5 BUN 13.0 Creatinine 1.09 H Glucose 97 Calcium 8.5 Liver Function 06/24/23 Range/Units 15:15 Total Bilirubin 0.2 (0.2-1.0) mg/dL AST 48 H (15-37) U/L ALT 97 H (14-59) U/L Alkaline Phosphatase 186 H (46-116) U/L Albumin 3.3 L (3.4-5.0) g/dL Assessment and Plan Assessment and Plan (1) Headache: (2) Dizziness: (3) Paresthesia: Plan Headache, near syncope, paresthesias left upper arm with weakness consistent with possible acute ischemic event-so far workup is negative. CT scan and CTA of head and neck and brain were all normal. Will place patient on aspirin a day. Consider further neurological workup based on symptoms progression overnight. Elevated BUN-consistent with dehydration-IV fluids History of alcohol abuse. Patient has not drank for the last 2 to 3 days. Does not feel like she is going through withdrawal will place patient on CIWA scale with as needed medications Elevated liver function test-workup for this is being completed as an outpatient. If they progress and are further elevated tomorrow may need workup with this hospitalization Generalized anxiety disorder-continue current medications Diabetes mellitus-repeat glucose in a.m., if elevated consider insulin sliding scale Admission status: Workup so far is negative. Greater than 50% chance she will be discharged home tomorrow. Medically necessary treatment so far will span only [address] patient in observation status.
[2023-06-24 18:21] LABS: Bilirubin Urine NEGATIVE (NEGATIVE); Blood Urine NEGATIVE (NEGATIVE); Clarity Urine CLEAR (CLEAR); Color Urine LT. YELLOW (YELLOW); Glucose Urine UA NEGATIVE (NEGATIVE); Ketones Urine NEGATIVE (NEGATIVE); Leukocyte Esterase Urine NEGATIVE (NEGATIVE); Nitrite Urine NEGATIVE (NEGATIVE); Protein Urine NEGATIVE (NEG/TRACE); Specific Gravity Urine 1.015 (1.005-1.025); Urobilinogen Urine 0.2 EU/dL (0.2-1.0); pH Urine 6.5 (5.0-9.0)
[2023-06-24 18:23] LABS: Urine Microscopic Indicated NO
[2023-06-24] MEDS: SUMATRIPTAN SUCCINATE 50 MG TABLET 100 MG PO (20:09)
[2023-06-24] MEDS: PROMETHAZINE HCL 25 MG TABLET PO (20:09)
[2023-06-24] MEDS: LORAZEPAM 1 MG TABLET PO (20:09)
[2023-06-24] MEDS: LACTATED RINGER'S SOLUTION 1,000 ML 100 ML IV (20:14)
[2023-06-24 21:22] LABS: Glucometer 214 mg/dL (74-106)
[2023-06-24] MEDS: ARIPIPRAZOLE 5 MG TABLET PO (21:43)
[2023-06-24] MEDS: ASPIRIN 81 MG TABLET.DR PO (21:43)
[2023-06-24] MEDS: ZOLPIDEM TARTRATE 10 MG TABLET PO (21:43)
[2023-06-25] VITALS (10 sets, daily range): BP systolic 112–126; BP diastolic 72–75; PULSE 69–87; TEMP 36.3–36.4; O2SAT 92–97
[2023-06-25 05:18] LABS: Basophils Percent Auto 0.5 % (0.2-2.0); Eosinophils Absolute Auto 0.2 10^3/uL (0.0-0.7); Hematocrit 36.8 % (36.0-48.0); Immature Granulocytes Abs Auto 0.04 10^3/uL (0.00-0.03); Immature Granulocytes Pct Auto 0.6 % (0.0-0.5); Lymphocytes Absolute Auto 2.2 10^3/uL (1.2-3.8); Lymphocytes Percent Auto 34.8 % (20.5-60.0); Mean Corpuscular HGB Conc 29.9 g/dL (29.9-35.2); Mean Corpuscular Volume 90.4 fL (81.0-99.0); Mean Platelet Volume 11.5 fL (9.5-13.5); Monocytes Absolute Auto 0.6 10^3/uL (0.3-0.8); Monocytes Percent Auto 9.2 % (1.7-12.0); Neutrophils Absolute Auto 3.3 10^3/uL (1.4-6.5); Neutrophils Percent Auto 51.9 % (43.0-75.0); Platelet Count 205 10^3/uL (150-450); Red Blood Count 4.07 10^6/uL (4.20-5.40); Red Cell Distribution Width 13.9 % (11.0-15.0); White Blood Count 6.4 10^3/uL (4.0-11.0)
[2023-06-25 05:28] LABS: Alanine Aminotransferase 73 U/L (14-59); Albumin Globulin Ratio 0.9; Alkaline Phosphatase 168 U/L (46-116); Anion Gap 11.8; Aspartate Amino Transferase 32 U/L (15-37); BUN Creatinine Ratio 12.4; Bilirubin Total 0.3 mg/dL (0.2-1.0); Calcium 8.1 mg/dL (8.5-10.1); Carbon Dioxide 27.3 mmol/L (21.0-32.0); Chloride 107 mmol/L (98-107); Estimated GFR (African America >60 (>=60); Estimated GFR (Non-African Ame >60 (>=60); Globulin 3.3 g/dL; Glucose 110 mg/dL (74-106); Magnesium 2.1 mg/dL (1.8-2.4); Potassium 4.1 mmol/L (3.5-5.1); Sodium 142 mmol/L (136-145); Total Protein 6.3 g/dL (6.4-8.2)
[2023-06-25] MEDS: LEVOTHYROXINE SODIUM 75 MCG TABLET PO (05:34)
[2023-06-25] MEDS: PROPRANOLOL HCL 20 MG TABLET 10 MG PO (05:34)
[2023-06-25] MEDS: LACTATED RINGER'S SOLUTION 1,000 ML 100 ML IV (05:36)
[2023-06-25] MEDS: LORAZEPAM 1 MG TABLET PO (07:21)
[2023-06-25] MEDS: SUMATRIPTAN SUCCINATE 50 MG TABLET 100 MG PO (07:28)
--- NOTE | 2023-06-25 08:06 | P.DS_ITS ---
DS: Providers Provider Date of admission: 06/24/23 18:00 Primary care physician: Farhat Cabezas MD Consults: 06/24/23 17:15 Consult to Pharmacy Routine Consulting Provider: Reason for consultation: Please [place] me when Med Rec is Updated Has provider been notified: No Occupational Therapy Eval and Treat Routine Reason for consultation: Only if needed for Rehab Has provider been notified: No Physical Therapy Eval and Treat Routine Reason for consultation: Eval and Treat Has provider been notified: No 06/25/23 07:49 Physical Therapy Eval and Treat Routine Reason for consultation: vestibular therapy Has provider been notified: No DS: Diagnosis Discharge Diagnosis (1) Headache: (2) Dizziness: (3) Paresthesia: Plan Headache, near syncope, paresthesias left upper arm with weakness consistent with possible acute ischemic event-workup negative symptoms improved Elevated BUN-consistent with dehydration-resolved History of alcohol abuse. Patient has not drank for the last 2 to 3 days. Stable at time of discharge For Elevated liver function test-improving at the time of discharge Generalized anxiety disorder-continue current medications Diabetes mellitus-repeat glucose in a.m., stable at the time of discharge Admission status: Workup so far is negative. Greater than 50% chance she will be discharged home tomorrow. Medically stable, likely discharge home later today, maintain observation status ? DS: Summary Hospital Course Hospital Course: Patient was seen and evaluated in the office with what she was describing as left-sided weakness. Patient was recommended to go to ER for emergency evaluation. Emergency evaluation in the ER was unremarkable. CT a and CT scan head and neck were normal. Patient has a history of cervical disc disease. Symptoms more consistent with that. Although she has a headache this morning and some vertigo she is overall improved. Still has paresthesias in the left arm but that will be worked up as an outpatient. Will have vestibular therapy work with her this morning, Toradol and Norflex for her migraine, if stable later this morning will be discharged home in improving condition. Medication status. See me in the office in 3 days. Will complete further workup for left arm paresthesias at that time Status at Discharge Overall status at discharge: patient is not back to baseline Time Spent with Patient Time attestation: Total time spent providing and/or coordinating discharge services: Time spent: greater than 30 minutes Exam Constitutional Vital Signs, click to edit/add: Last Vital Signs Temp 97.6 F 06/25/23 07:38 Pulse 69 06/25/23 07:38 Resp 18 06/25/23 07:38 BP 126/75 06/25/23 07:38 Pulse Ox 97 06/25/23 07:38 O2 Del Method Room Air 06/25/23 04:15 Documenting provider has reviewed patient's vital signs: yes Common normals: no apparent distress Exam limitations: no altered mental status Lymph Lymphatic: no lymphadenopathy noted Chest Common normals: inspection of chest normal and palpation of chest normal Respiratory Common normals: normal respiratory effort and no retractions Cardio Common normals: regular rate, regular rhythm, S1 normal heart sound and no murmurs Neuro Common normals: oriented x3, CN's II-XII intact bilaterally and moves all extremities (Diminished sensation left arm but full range of motion) DS: Data Data Completed and Pending Labs on day of discharge: Labs from last 24 hours 06/25/23 06/24/23 06/24/23 04:34 21:21 17:50 WBC 6.4 RBC 4.07 L Hgb 11.0 L Hct 36.8 MCV 90.4 MCH 27.0 MCHC 29.9 RDW 13.9 Plt Count 205 MPV 11.5 Neut % (Auto) 51.9 Lymph % (Auto) 34.8 King % (Auto) 9.2 Eos % (Auto) 3.0 Baso % (Auto) 0.5 Neut # (Auto) 3.3 Lymph # (Auto) 2.2 King # (Auto) 0.6 Eos # (Auto) 0.2 Baso # (Auto) 0.0 Abs Immat Gran (auto) 0.04 H Imm/Tot Granulo (auto) 0.6 H PT INR Sodium 142 Potassium 4.1 Chloride 107 Carbon Dioxide 27.3 Anion Gap 11.8 BUN 12.0 Creatinine 0.97 Est GFR ( Amer) >60 Est GFR (Non-Af Amer) >60 BUN/Creatinine Ratio 12.4 Glucose 110 H Calcium 8.1 L Magnesium 2.1 Total Bilirubin 0.3 AST 32 ALT 73 H Alkaline Phosphatase 168 H Troponin I High Sens Total Protein 6.3 L Albumin 3.0 L Globulin 3.3 Albumin/Globulin Ratio 0.9 TSH Urine Color Lt. yellow Urine Clarity Clear Urine pH 6.5 Ur Specific [place] 1.015 Urine Protein Negative Urine Glucose (UA) Negative Urine Ketones Negative Urine Occult Blood Negative Urine Nitrite Negative Urine Bilirubin Negative Urine Urobilinogen 0.2 Ur Leukocyte Esterase Negative Ethanol Quant POC Glucose 214 H 06/24/23 15:15 WBC 8.0 RBC 4.21 Hgb 11.5 L Hct 37.4 MCV 88.8 MCH 27.3 MCHC 30.7 RDW 13.9 Plt Count 226 MPV 11.1 Neut % (Auto) 60.3 Lymph % (Auto) 28.1 King % (Auto) 8.4 Eos % (Auto) 2.1 Baso % (Auto) 0.6 Neut # (Auto) 4.8 Lymph # (Auto) 2.2 King # (Auto) 0.7 Eos # (Auto) 0.2 Baso # (Auto) 0.1 Abs Immat Gran (auto) 0.04 H Imm/Tot Granulo (auto) 0.5 PT 10.3 INR 0.97 Sodium 142 Potassium 3.9 Chloride 107 Carbon Dioxide 30.5 Anion Gap 8.4 BUN 13.0 Creatinine 1.09 H Est GFR ( Amer) >60 Est GFR (Non-Af Amer) 53 L BUN/Creatinine Ratio 11.9 Glucose 97 Calcium 8.5 Magnesium 2.1 Total Bilirubin 0.2 AST 48 H ALT 97 H Alkaline Phosphatase 186 H Troponin I High Sens 4.4 Total Protein 6.8 Albumin 3.3 L Globulin 3.5 Albumin/Globulin Ratio 0.9 TSH 1.106 Urine Color Urine Clarity Urine pH Ur Specific [place] Urine Protein Urine Glucose (UA) Urine Ketones Urine Occult Blood Urine Nitrite Urine Bilirubin Urine Urobilinogen Ur Leukocyte Esterase Ethanol Quant <3 POC Glucose Discharge Plan Discharge Disposition: Home, Self-Care Condition: Good Discharge Medications: Continued diazepam 2 mg tablet 2 mg PO Q8H PRN (Reason: alcohol withdrawal) gabapentin 300 mg capsule 300 mg PO Q8H folic acid 1 mg tablet 1 mg PO DAILY olanzapine 5 mg tablet 5 mg PO Q6H PRN (Reason: agitation) thiamine HCl (vitamin B1) 100 mg tablet 100 mg PO BID hydroxyzine pamoate 50 mg capsule 50 mg PO Q6H PRN (Reason: anxiety) mirtazapine 15 mg tablet 15 mg PO .QHS zolpidem 12.5 mg tablet,ext release multiphase 12.5 mg PO .QHS (DME) FreeStyle Lite Strips Strip MISCELLANEOUS (DME) blood-glucose meter [FreeStyle [place] Lite] Kit MISCELLANEOUS ropinirole 1 mg tablet 1 mg PO .qhs PRN (Reason: restless leg(s)) Rx Instructions: 1 to 3 hours before bedtime pantoprazole 40 mg tablet,delayed release (DR/EC) 40 mg PO Q24H PRN (Reason: stomach upset) levothyroxine 75 mcg tablet 75 mcg PO QAM Hold Instructions: HAS NOT TAKEN IN MONTHS BUT WOULD LIKE LEVELS DRAWN albuterol sulfate 90 mcg/actuation HFA aerosol inhaler 1 puff INHALATION Q4H PRN (Reason: shortness of breath or wheezing) cyanocobalamin (vitamin B-12) 1,000 mcg/mL solution 1,000 mcg IM Q30D Rx Instructions: FILLED 05/04/23 Trulicity 3 mg/0.5 mL pen injector 3 mg SUBCUT QWEEK Patient Comments: WED WITH EVEENING MEAL ergocalciferol (vitamin D2) 1,250 mcg (50,000 unit) capsule 1,250 mcg PO .3XWEEK Patient Comments: TUES/THURS/SAT lorazepam 1 mg tablet 1 mg PO TID PRN (Reason: anxiety) propranolol 10 mg tablet 10 mg PO QID sumatriptan succinate 100 mg tablet 100 mg PO Q2H PRN (Reason: migraine headache) aripiprazole [Abilify] 5 mg tablet 5 mg PO .QHS promethazine 25 mg tablet 25 mg PO Q4H PRN (Reason: nausea and vomiting) Qty: 60 11RF Print Language: Malian Forms: Portal Instructions
[2023-06-25] MEDS: THIAMINE MONONITRATE (VIT B1) 100 MG TABLET PO (08:27)
[2023-06-25] MEDS: KETOROLAC TROMETHAMINE 30 MG/ML VIAL IVP (08:27)
[2023-06-25] MEDS: FOLIC ACID 1 MG TABLET PO (08:27)
[2023-06-25] MEDS: ORPHENADRINE 60 MG/ 2 ML VIAL IV (08:27)
[2023-06-25] MEDS: MECLIZINE HCL 12.5 MG TABLET 25 MG PO (08:27)
--- NOTE | 2023-06-25 09:39 | SWNOTE1 ---
SW stopped in to speak with pt. Pt's lights are off in room and pt is sleeping soundly in bed. SW to try to see pt later today.
[2023-06-25 11:48] LABS: Glucometer 95 mg/dL (74-106)
--- NOTE | 2023-06-25 11:50 | SWNOTE1 ---
SW stopped in to speak with pt in regards to alcohol and how she was doing at home. Pt did voice she is doing alright. She voiced she felt like she was having a stroke and that she was having tingling and numbness and that is why she stopped [facility] [employer]. She voiced frustration because everyone always links her symptoms with her anxiety. Pt did voice she wants to figure out what is going on. She stated therapy is coming in and then we will see what is determined from there. Pt is living at home right now. SW spoke to physical therapy and it is being recommended that pt go to rehab at [facility]. Also recommended that pt gets a walker. She has 6 steps to get in to her home and she is at home alone. SW went back in and advised pt that rehab is recommended. She voiced she does not want to go to a nursing facility with all her health issues. SW advised for her safety it is recommended. Pt is refusing to go to SNF at this time. ANNA asked pt if she is agreeable to home health? Pt voiced she is agreeable to have therapy come in to the home. She has not done in past. SW let her know it is not everyday, just a few days of the week. Pt agreeable, no preference on [employer] company. SW advised SW will have to find [employer] that takes her insurance. Pt then voiced to ANNA that she does have concerns about going home due to everything that was going on. She stated they are saying it is due to a possible migraine. She is concerned about the balance issues, weakness, tingling, and her anxiety. She voiced it would be better if she could stay another day and line up someone to be in the home with her. ANNA asked pt if she could make arrangements for today. Pt has 3 sons, but they are all dealing with their own issues. She stated it would have to be her EX that would assist. She does not think she can get it set for today as he is working. ANNA did advise pt that this is why therapy is recommending to go to rehab, for her own safety. She again voiced no to going to rehab. ANNA advised pt that SW will reach out to doctor. ANNA sent message to doctor and all pt's test results came back negative and no medical reason to keep her. SW to let pt know.
--- NOTE | 2023-06-25 12:09 | SWNOTE1 ---
ANNA advised pt that she is being discharged today. She did voice understanding and she voiced she will figure it out. Pt stated she is going to finish eating lunch and she will be ready to go. ANNA asked if she is still open to home health and she is. SW to work on finding a HH company that takes her insurance, SW advised pt if she discharges before HH is set, SW will call her. Pt did get a phone call from the [employer] [facility] [employer] and they did get information in regards to walker and pt can pick it up on Wednesday. ANNA advised pt that Dr. Cabezas sent it over from the office. At this time pt has no other needs. ANNA sent email to [employer] and [employer] to see if they accept her insurance.
--- NOTE | 2023-06-25 12:32 | SWNOTE1 ---
[facility] and [address] do not accept pt's insurance.
--- NOTE | 2023-06-25 14:29 | SWNOTE1 ---
[facility], [facility] , and [facility] does not accept. SW has message out [facility] to see if they accept. SW called pt's insurance and they stated since pt is not with SW they can not tell SW who is in network. ANNA expressed to pt's insurance that SW is attempting to set a patient up with HH and would just need a list in general of HH companies for other pt's that have her insurance as well. She again stated she can't provide SW with list. She transferred SW to member services, but SW was disconnected. ANNA went online and attempted to see who accepts the insurance. Online it says that [facility] does accept and that is it for around here. All other HH companies are towards [facility] and further away.
--- NOTE | 2023-06-28 12:55 | CM.DCFOLLOWU ---
Person spoke with: patient How are you feeling? has headache, having anxiety that she is trying to ignore. Has some numbness on both sides How is your pain? bad headache Did you understand your discharge instructions?yes Do you have any questions about your discharge instructions? no Were you given any prescriptions at discharge? no Were you able to get your prescriptions filled? N/A Do you understand how to take your medications as ordered? yes Do you have any questions about your follow up appointment and do you plan to keep your follow up appointment? has follow up with Dr. Cabezas today at 3:45. She tried to change it to Wednesday or Wednesday but Dr. Cabezas wanted her to come in today. Advised pt it was a good thing she was going today as she was still not feeling too great. Patient is going to continue to try to ignore her anxiety symptoms and will be going to see Dr. Cabezas today Is there anything else that you would like to discuss? no Questions/Comments/Concerns/Other: N/A
--- NOTE | 2023-06-28 13:00 | SWNOTE1 ---
SW called pt and let her know at this time SW was not able to find a home health company that accepts her insurance. SW advised pt to call her insurance and see who they are in network with since they would not tell SW over the phone.
== END 2023-06-25 12:50 | disposition home or self-care (01) ==
LOC: ER 17:10 → MS 18:06
PROVIDERS: Physician Assistant; Admitting Provider Family Medicine; Emergency Provider Emergency Medicine Emergency Medical Services; PCP Family Medicine; Visit Provider Family Medicine
DX: R53.1 Weakness (principal); R55 Syncope and collapse; R20.2 Paresthesia of skin; R42 Dizziness and giddiness; E86.0 Dehydration; F10.10 Alcohol abuse, uncomplicated; R79.89 Other specified abnormal findings of blood chemistry; F41.1 Generalized anxiety disorder; G43.909 Migraine, unspecified, not intractable, without status migrainosus; M50.90 Cervical disc disorder, unspecified, unspecified cervical region; Z79.890 Hormone replacement therapy; Z79.85 Long-term (current) use of injectable non-insulin antidiabetic drugs; Z79.899 Other long term (current) drug therapy; G47.33 Obstructive sleep apnea (adult) (pediatric); M79.7 Fibromyalgia; Z85.850 Personal history of malignant neoplasm of thyroid; F32.A Depression, unspecified; Z90.49 Acquired absence of other specified parts of digestive tract; Z98.84 Bariatric surgery status; F12.90 Cannabis use, unspecified, uncomplicated
CPT/HCPCS: 36415; 70450; 70496; 70498; 80053; 80320; 81003; 82948; 83735; 84443; 84484; 85025; 85610; 93005; 94761; 96361; 96372; 96374; 96375; 97112; 97162; 97165; 99285; G0378; Q9967

== ENCOUNTER 2024-04-05 10:54 | Emergency (ER) | payer OTHER, SELFPAY ==
[2024-04-05 11:08] VITALS: BP 154/98; PULSE 100; TEMP 36.8; O2SAT 98; BMI 45.7
[2024-04-05 11:39] LABS: Bilirubin Urine NEGATIVE (NEGATIVE); Blood Urine NEGATIVE (NEGATIVE); Clarity Urine CLEAR (CLEAR); Color Urine LT. YELLOW (YELLOW); Glucose Urine UA NEGATIVE (NEGATIVE); Ketones Urine NEGATIVE (NEGATIVE); Leukocyte Esterase Urine NEGATIVE (NEGATIVE); Nitrite Urine NEGATIVE (NEGATIVE); Protein Urine NEGATIVE (NEG/TRACE); Specific Gravity Urine 1.015 (1.005-1.025)
[2024-04-05 11:45] LABS: Urine Microscopic Indicated NO
[2024-04-05] MEDS: MORPHINE SULFATE 4 MG/ML VIAL IV (12:01)
[2024-04-05] MEDS: 0.9 % SODIUM CHLORIDE 1,000 ML 1000 ML IV (12:01)
[2024-04-05 12:02] LABS: Basophils Absolute Auto 0.1 10^3/uL (0.0-0.1); Basophils Percent Auto 0.8 % (0.2-2.0); Eosinophils Absolute Auto 0.2 10^3/uL (0.0-0.7); Eosinophils Percent Auto 2.6 % (0.9-7.0); Hematocrit 44.6 % (36.0-48.0); Hemoglobin 13.9 g/dL (12.0-16.0); Immature Granulocytes Abs Auto 0.06 10^3/uL (0.00-0.03); Immature Granulocytes Pct Auto 0.7 % (0.0-0.5); Lymphocytes Absolute Auto 1.8 10^3/uL (1.2-3.8); Lymphocytes Percent Auto 21.3 % (20.5-60.0); Mean Corpuscular HGB Conc 31.2 g/dL (29.9-35.2); Mean Corpuscular Hemoglobin 25.6 pg (26.7-34.0); Mean Platelet Volume 10.6 fL (9.5-13.5); Monocytes Absolute Auto 0.6 10^3/uL (0.3-0.8); Monocytes Percent Auto 6.9 % (1.7-12.0); Neutrophils Absolute Auto 5.7 10^3/uL (1.4-6.5); Neutrophils Percent Auto 67.7 % (43.0-75.0); Platelet Count 351 10^3/uL (150-450); Red Blood Count 5.44 10^6/uL (4.20-5.40); Red Cell Distribution Width 17.1 % (11.0-15.0); White Blood Count 8.5 10^3/uL (4.0-11.0)
[2024-04-05] MEDS: ONDANSETRON PF 4 MG/2 ML VIAL IV (12:02)
[2024-04-05 12:24] LABS: Alanine Aminotransferase 27 U/L (14-59); Albumin Globulin Ratio 0.9; Alkaline Phosphatase 315 U/L (46-116); Anion Gap 15.5; Aspartate Amino Transferase 24 U/L (15-37); BUN Creatinine Ratio 5.6; Bilirubin Total 0.5 mg/dL (0.2-1.0); Calcium 9.3 mg/dL (8.5-10.1); Carbon Dioxide 26.3 mmol/L (21.0-32.0); Chloride 101 mmol/L (98-107); Estimated GFR (African America 55 (>=60 mL/min/1.73m^2); Estimated GFR (Non-African Ame 45 (>=60 mL/min/1.73m^2); Globulin 4.4 g/dL; Glucose 124 mg/dL (74-106); Potassium 3.8 mmol/L (3.5-5.1); Sodium 139 mmol/L (136-145); Total Protein 8.4 g/dL (6.4-8.2)
--- NOTE | 2024-04-05 12:26 | ED.GENADUL1 ---
HPI HPI - General Adult General Chief complaint: Nausea/Vomiting/Diarrhea Stated complaint: NAUSEA VOMITTING DEHYDRATION FEVER Time Seen by Provider: 04/05/24 10:55 Source: patient Mode of arrival: walk-in History of Present Illness HPI narrative: Patient presents to ED complaining of nausea vomiting diarrhea. She reports stomach cramping and states that she has had diarrhea for multiple days. She said this has been going on for about 5 days and she feels dehydrated. She said she struggles with dehydration anyway and this has made it much worse. She denies fevers. She is stable here. Vital signs are stable. Slightly hypertensive. She said nobody else around her has been sick. She does complain of some zonia cramping worse on the left. No flank. She reports she is a diabetic. Related Data Home Medications ?Medication ?Instructions ?Recorded ?Confirmed blood sugar diagnostic (FreeStyle 02/10/23 04/05/24 Lite Strips) blood-glucose meter (FreeStyle 02/10/23 04/05/24 Fairplay Lite kit) levothyroxine 75 mcg tablet 75 mcg PO QAM 02/10/23 04/05/24 pantoprazole 40 mg tablet,delayed 40 mg PO Q24H PRN stomach upset 02/10/23 04/05/24 release dulaglutide 3 mg/0.5 mL 3 mg subcut QWEEK 05/19/23 04/05/24 subcutaneous pen injector (Trulicity) ergocalciferol (vitamin D2) 1,250 1,250 mcg PO .3XWEEK 05/19/23 04/05/24 mcg (50,000 unit) capsule lorazepam 1 mg tablet 1 mg PO TID PRN anxiety 05/19/23 04/05/24 propranolol 10 mg tablet 10 mg PO QID 05/19/23 04/05/24 folic acid 1 mg tablet 1 mg PO DAILY 06/24/23 04/05/24 gabapentin 300 mg capsule 300 mg PO Q8H 06/24/23 04/05/24 thiamine HCl (vitamin B1) 100 mg 100 mg PO BID 06/24/23 04/05/24 tablet Previous Rx's ?Medication ?Instructions ?Recorded promethazine 25 mg tablet 25 mg PO Q4H PRN nausea and 05/21/23 vomiting #60 tabs Allergies Allergy/AdvReac Type Severity Reaction Status Date / Time ibuprofen (From Motrin) Allergy Unknown GI bleed Verified 04/05/24 11:05 scopolamine AdvReac psychosis Verified 04/05/24 11:05 Opioid HPI Opioid Management Most Recent Opioid Data: Last Pain Scale 9 04/05/24 12:01 04/05/24 Last MAR Pain Assessment 04/05/24 12:01 Last ORT Total Score 8 06/24/23 18:22 06/24/23 Last ORT Risk Category High Risk 06/24/23 18:22 06/24/23 Ur Phencyclidine Scrn Negative (NEGATIVE) 05/19/23 12:44 05/19/23 Review of Systems ROS Status of ROS 10 or more systems reviewed and unremarkable except as noted in history and below PFSH PFSH Medical History (Updated 04/05/24 @ 12:48 by Sheila Blanca DO) Headache ?R51.9 - Headache, unspecified (ICD-10) Dizziness ?R42 - Dizziness and giddiness (ICD-10) Paresthesia ?R20.2 - Paresthesia of skin (ICD-10) Alcohol abuse ?F10.10 - Alcohol abuse, uncomplicated (ICD-10) TALIA (obstructive sleep apnea) ?G47.33 - Obstructive sleep apnea (adult) (pediatric) (ICD-10) GI bleed ?K92.2 - Gastrointestinal hemorrhage, unspecified (ICD-10) Incarcerated paraesophageal hernia ?K44.0 - Diaphragmatic hernia with obstruction, without gangrene (ICD-10) Fibromyalgia ?M79.7 - Fibromyalgia (ICD-10) Thyroid cancer ?C73 - Malignant neoplasm of thyroid gland (ICD-10) Dehydration ?E86.0 - Dehydration (ICD-10) Anxiety ?F41.9 - Anxiety disorder, unspecified (ICD-10) Depression ?F32.A - Depression, unspecified (ICD-10) Surgical History (Updated 05/19/23 @ 15:06 by Annemarie Anderson) H/O bariatric surgery ?Z98.84 - Bariatric surgery status (ICD-10) History of cholecystectomy ?Z90.49 - Acquired absence of other specified parts of digestive tract (ICD-10) Family History (Updated 05/19/23 @ 15:02 by Annemarie Anderson) Father Family history of CHF (congestive heart failure) Family history of diabetes mellitus Family history of hypertension Family history of myocardial infarction Family history of stroke Mother Family history of COPD (chronic obstructive pulmonary disease) Grandmother Family history of cancer Family history of diabetes mellitus Social History (Updated 06/24/23 @ 18:20 by Jocelyne Gonzales) Within the past year, how often did you have a drink containing alcohol: 4 or more times a week Within the past year, how many standard drinks containing alcohol did you have on a typical day: 10 or more Within the past year, how often did you have six or more drinks on one occasion: daily or almost daily Total score: 12 Score interpretation: A score of 3 or more indicates drinking is likely to affect patient's safety. 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 Highest level of school completed/degree received: high school graduate In a typical week, how many times do you talk on the telephone with family, friends, or neighbors: 3 or more times per week How often do you get together with friends or relatives: 3 or more times per week How often do you attend mormonism or methodist services: 1-3 times per year Do you belong to any clubs or organizations such as mormonism groups unions, [employer] or athletic groups, or school groups: no Little interest or pleasure in doing things: nearly every day Feeling down, depressed, or hopeless: nearly every day Feel stressed/tense/nervous/anxious/difficulty sleeping: very much Life stressors: recent of family or friend Life stressor details: Dad , lost job, son got other son left alone with 3 kids Gender Identity: female Exam Narrative Exam Narrative: Time Seen: [] Vital Signs: [Per nurse's notes.] General: [Alert] Skin: [Warm, dry, no rash.] Head: [Normocephalic, atraumatic.] Neck: [Supple, trachea midline.] Eye: [Pupils are equal, round and reactive to light, extraocular movements are intact, normal conjunctiva.] Ears, nose, mouth and throat: oral mucosa moist. Cardiovascular: [Regular rate and rhythm, no murmur.] Respiratory: [Lungs are clear to auscultation, respirations are non-labored, breath sounds are equal.] Gastrointestinal: [Soft, nontender, non distended, normal bowel sounds.] MSK: 5 out of 5 muscle strength x 4 extremities no calf pain or edema Psychiatric: [Cooperative, appropriate mood & affect.] Neurological: [Alert and oriented to person, place, time, and situation, no focal neurological deficit observed.] Constitutional Vital Signs, click to edit/add: Last Vital Signs Temp 98.2 F 04/05/24 11:08 Pulse 100 H 04/05/24 11:08 Resp 18 04/05/24 11:08 BP 154/98 H 04/05/24 11:08 Pulse Ox 98 04/05/24 11:08 O2 Del Method Room Air 04/05/24 11:08 Course Vital Signs Vital signs: Vital Signs Temperature 98.2 F 04/05/24 11:08 Pulse Rate 100 H 04/05/24 11:08 Respiratory Rate 18 04/05/24 11:08 Blood Pressure 154/98 H 04/05/24 11:08 Pulse Oximetry 98 04/05/24 11:08 Oxygen Delivery Method Room Air 04/05/24 11:08 Temperature 98.2 F 04/05/24 11:08 Pulse Rate 100 H 04/05/24 11:08 Respiratory Rate 18 04/05/24 11:08 Blood Pressure 154/98 H 04/05/24 11:08 Pulse Oximetry 98 04/05/24 11:08 Oxygen Delivery Method Room Air 04/05/24 11:08 Medical Decision Making MDM Narrative Medical decision making narrative: Patient has no acute findings on her lab workup. No hypokalemia, no renal failure. Patient was given IV fluids here in ED as well as IV medication. I spoke to Dr. Cabezas and he said he could follow-up with her in the office if she does not need to be admitted. I have not seen the patient vomiting here. I do not think she meets indication for admission at this time. Patient is comfortable care plan for home. Follow-up outpatient with Dr. Cabezas or return to ED if worsening symptoms. Differential Diagnosis Differential Diagnosis: Gastroenteritis, dehydration, electrolyte abnormality Lab Data Lab results reviewed: Yes I reviewed the patient's lab results Labs: Lab Results 04/05/24 04/05/24 Range/Units 11:15 11:20 WBC 8.5 (4.0-11.0) 10^3/uL RBC 5.44 H (4.20-5.40) 10^6/uL Hgb 13.9 (12.0-16.0) g/dL Hct 44.6 (36.0-48.0) % MCV 82.0 (81.0-99.0) fL MCH 25.6 L (26.7-34.0) pg MCHC 31.2 (29.9-35.2) g/dL RDW 17.1 H (11.0-15.0) % Plt Count 351 (150-450) 10^3/uL MPV 10.6 (9.5-13.5) fL Neut % (Auto) 67.7 (43.0-75.0) % Lymph % (Auto) 21.3 (20.5-60.0) % Webster % (Auto) 6.9 (1.7-12.0) % Eos % (Auto) 2.6 (0.9-7.0) % Baso % (Auto) 0.8 (0.2-2.0) % Neut # (Auto) 5.7 (1.4-6.5) 10^3/uL Lymph # (Auto) 1.8 (1.2-3.8) 10^3/uL Webster # (Auto) 0.6 (0.3-0.8) 10^3/uL Eos # (Auto) 0.2 (0.0-0.7) 10^3/uL Baso # (Auto) 0.1 (0.0-0.1) 10^3/uL Abs Immat Gran (auto) 0.06 H (0.00-0.03) 10^3/uL Imm/Tot Granulo (auto) 0.7 H (0.0-0.5) % Sodium 139 (136-145) mmol/L Potassium 3.8 (3.5-5.1) mmol/L Chloride 101 (98-107) mmol/L Carbon Dioxide 26.3 (21.0-32.0) mmol/L Anion Gap 15.5 BUN 7.0 (7.0-18.0) mg/dL Creatinine 1.25 H (0.55-1.02) mg/dL Est GFR ( Amer) 55 L (>=60 mL/min/1.73m^2) Est GFR (Non-Af Amer) 45 L (>=60 mL/min/1.73m^2) BUN/Creatinine Ratio 5.6 Glucose 124 H (74-106) mg/dL Calcium 9.3 (8.5-10.1) mg/dL Total Bilirubin 0.5 (0.2-1.0) mg/dL AST 24 (15-37) U/L ALT 27 (14-59) U/L Alkaline Phosphatase 315 H (46-116) U/L Total Protein 8.4 H (6.4-8.2) g/dL Albumin 4.0 (3.4-5.0) g/dL Globulin 4.4 g/dL Albumin/Globulin Ratio 0.9 Urine Color Lt. yellow (YELLOW) Urine Clarity Clear (CLEAR) Urine pH 6.0 (5.0-9.0) Ur Specific [place] 1.015 (1.005-1.025) Urine Protein Negative (NEG/TRACE) mg/dL Urine Glucose (UA) Negative (NEGATIVE) mg/dL Urine Ketones Negative (NEGATIVE) mg/dL Urine Occult Blood Negative (NEGATIVE) Urine Nitrite Negative (NEGATIVE) Urine Bilirubin Negative (NEGATIVE) Urine Urobilinogen 1.0 (0.2-1.0) EU/dL Ur Leukocyte Esterase Negative (NEGATIVE) Discharge Plan Discharge Chief Complaint: Nausea/Vomiting/Diarrhea Clinical Impression: Gastroenteritis Patient Disposition: Home, Self-Care Time of Disposition Decision: 12:48 Condition: Good Mode of Transportation: Private Vehicle Prescriptions / Home Meds: No Action gabapentin 300 mg capsule 300 mg PO Q8H folic acid 1 mg tablet 1 mg PO DAILY thiamine HCl (vitamin B1) 100 mg tablet 100 mg PO BID (DME) FreeStyle Lite Strips Strip MISCELLANEOUS (DME) blood-glucose meter [FreeStyle Fairplay Lite] Kit MISCELLANEOUS pantoprazole 40 mg tablet,delayed release (DR/EC) 40 mg PO Q24H PRN (Reason: stomach upset) levothyroxine 75 mcg tablet 75 mcg PO QAM Trulicity 3 mg/0.5 mL pen injector 3 mg SUBCUT QWEEK Patient Comments: WEDS WITH EVEENING MEAL ergocalciferol (vitamin D2) 1,250 mcg (50,000 unit) capsule 1,250 mcg PO .3XWEEK Patient Comments: TUES/THURS/SAT lorazepam 1 mg tablet 1 mg PO TID PRN (Reason: anxiety) propranolol 10 mg tablet 10 mg PO QID promethazine 25 mg tablet 25 mg PO Q4H PRN (Reason: nausea and vomiting) Qty: 60 11RF Print Language: Divehi Instructions: Acute Nausea and Vomiting (ED) Referrals: Farhat Cabezas MD [Primary Care Provider] - 1 week Discharge Date/Time: 04/05/24 13:14
== END 2024-04-05 13:14 | disposition home or self-care (01) ==
PROVIDERS: Emergency Provider Emergency Medicine; PCP Family Medicine
DX: K52.9 Noninfective gastroenteritis and colitis, unspecified (principal); E11.9 Type 2 diabetes mellitus without complications; Z79.85 Long-term (current) use of injectable non-insulin antidiabetic drugs; Z98.84 Bariatric surgery status; Z90.49 Acquired absence of other specified parts of digestive tract; Z63.4 Disappearance and death of family member; Z63.79 Other stressful life events affecting family and household
CPT/HCPCS: 36415; 80053; 81003; 85025; 96374; 96375; 99284; J2270; J2405

== ENCOUNTER 2024-07-20 16:23 | Outpatient (OUT) | payer OTHER, SELFPAY ==
--- OUTSIDE RECORDS SUMMARY | 2023-01-19 10:00 | XMS_ITS ---
Author Organization [facility] Address [address] [place], [place] [id number] Care Team Providers Care It Admin Name Role Phone Marta Burkett Unavailable [phone] REASON FOR VISIT 2 week follow up Encounters Encounter Location Date Provider Diagnosis Main [address] [place] [id number] 01/19/2023 Marta Burkett Plan Of Treatment No Information Progress Notes * Esme REYESDOB:1975 (49 yo F)Acc No.[id number]:01/19/2023 Patient: Mayur JOHNSONwna Provider: AIME Allen :1975 A ge:47 Y S ex:Female Date:01/19/2023 Address:[address] [place] [address] [address], [address] [id number] Subjective: * Chief Complaints: * 1 . 2 week follow up. * Medical History: Objective: * Vitals: Assessment: Plan: * Treatment: Care Plan: * Problems: * Billing Information: * Visit Code: * Procedure Codes: Care Plan Details* * Electronic signature of AIME Alcantar on 07/20/2024 at 04:29 PM EDT Sign off status: Pending * Provider: AIME Allen Date: 03/22/2022 Generated for Printi ng/Faxing/eTransmitting on: 0 07/20/2024 04:29 PM EDT
--- OUTSIDE RECORDS SUMMARY | 2024-06-27 09:30 | XMS_ITS ---
Author Organization [facility] Address [address] [place] [address] Care Team Providers Care Poultry Packer Name Role Phone Jason Lemon Primary Care Provider REASON FOR VISIT NEW PT EXAM Encounters Encounter Location Date Provider Diagnosis [address] [place] [address] [place] [address] 06/27/2024 Jason Lemon Plan Of Treatment No Information Progress Notes * PRADIP MORFINDOB:1975 (49 yo F)Acc No.[id number]:06/27/2024 Patient: ZENAIDA JOHNSONWNA Provider: Jaquelin Lemon DDS :1975 A ge:48 Y S ex:Female Date:06/27/2024 Address:[address] [place], [id number] Subjective: * Chief Complaints: * 1 . NEW PT EXAM. * Medical History: Objective: * Vitals: Assessment: Plan: * Treatment: * Images: * Electronic signature of Ashkan Lemon DDS on 07/20/2024 at 03:38 PM EDT Sign off status: Pending * Provider: Jaquelin Lemon DDS Date: 06/27/2024 Generated for Any soares/Karen/Banitting on: 07/20/2024 03:38 PM EDT
--- OUTSIDE RECORDS SUMMARY | 2024-07-12 07:05 | XMS_ITS ---
Author Organization [facility] [place] Address [address] [place] [address] Care Team Providers Care Account Management Assistant Name Role Phone DAVEY CABEZAS MD Primary Care Provider Davey Cabezas Unavailable [phone] REASON FOR VISIT Antibiotic Medications Medication SIG (Take, Route, Frequency, Duration) Notes Start Date End Date Status Amoxicillin-Pot Clavulanate 600-42.9 MG/5ML 5 mL Orally BID for 10 days 2024 Active Encounters Encounter Location Date Provider Diagnosis [place] [address] [place] [address] 2024 Davey Cabezas Plan Of Treatment Medication Medication Name Sig Start Date Stop Date Notes Amoxicillin-Pot Clavulanate 600-42.9 MG/5ML 5 mL Orally BID for 10 days 2024 Progress Notes * Esme REYES SDOB: [birth year] (49 yo F)Acc No.[id number]:2024 Patient: Bekah DYE Esme Garcia :1975 A ge:49 Y S ex:Female Address:[address] [place], [address] * Refills Start Amoxicillin-Pot Clavulanate Suspension Reconstituted, 600-42.9 MG/5ML, Orally, 100 ml, 5 mL, BID, 10 days, Refills=0 * true * Date: Generated for Any soares/Karen/Duc on: 0 07/20/2024 04:28 PM EDT
--- OUTSIDE RECORDS SUMMARY | 2024-07-14 04:06 | XMS_ITS ---
Demographics Address [address] [place] [address] Mobile Email Address Preferred Language en Marital Status unmarried Ep[employer] Affiliation Unknown Race White Ethnic Group Not or Lati no Author Organization [facility] [place] Address [address] [place] [address] Care Team Providers Care Brine Maker Name Role Phone DAVEY CABEZAS MD Primary Care Provider Davey Cabezas Unavailable [phone] REASON FOR VISIT Librium refill Medications Medication SIG (Take, Route, Frequency, Duration) Notes Start Date End Date Status chlordiazePOXIDE HCl 10 MG 1 capsule Orally tid PRN for 7 days needs to last a week 07/14/2024 Active Encounters Encounter Location Date Provider Diagnosis [address] [address] 07/14/2024 Davey Raulito Palpitations R00.2 Assessments Encounter Date Diagnosis (ICD Code) Assessment Notes Treatment Notes Treatment Clinical Notes Section Notes 07/14/2024 Palpitations (ICD-10 - R00.2) Plan Of Treatment Medication Medication Name Sig Start Date Stop Date Notes chlordiazePOXIDE HCl 10 MG 1 capsule Ora lly tid PRN for 7 days 07/14/2024 Progress Notes * Esme REYES SDOB: [birth year] (49 yo F)Acc No.[id number]:07/14/2024 Patient: Mayur JOHNSONwna Radha :1975 A ge:49 Y S ex:Female Address:[address] [place], [address] * Refills Refill chlordiazePOXIDE HCl Capsule, 10 MG, Orally, 18, 1 capsule, tid PRN, 7 days, Refills=0 * true * Date: Generated for Any soares/Karen/Duc on: 0 07/20/2024 04:30 PM EDT
--- OUTSIDE RECORDS SUMMARY | 2024-07-20 09:07 | XMS_ITS | Continuity of Care Document ---
Author Organization [facility] Address [address] [place] [address] Phone Care Team Providers Care Sawyer Cork Slabs Name Role Phone Bella Tadeo Unavailable Unavaila [...] MINUTES PSYTX PT&/FAMILY 60 MINUTES Acute Detox Quantitative Associate Acute Detox Quantitative Associate Acute Detox Quantitative Associate ROUTINE VENIPUNCTURE DRUG TEST PRSMV DIR OPT OBS URINE TEST Acute Detox Quantitative Associate PSYTX PT&/FAMILY 60 MINUTES PSYTX PT&/FAMILY 60 MINUTES PSYTX PT&/FAMILY 60 MINUTES PSYTX PT&/FAMILY 60 MINUTES PSYTX PT&/FAMILY 60 MINUTES PSYTX PT&/FAMILY 60 MINUTES PSYTX PT&/FAMILY 60 MINUTES PSYTX PT&/FAMILY 60 MINUTES PSYTX PT&/FAMILY 60 MINUTES PSYTX PT&/FAMILY 60 MINUTES PSYTX PT&/FAMILY 60 MINUTES PSYTX PT&/FAMILY 60 MINUTES PSYTX PT&/FAMILY 60 MINUTES PSYTX PT&/FAMILY 60 MINUTES Intraoral-periapical 1st Film Jmwsouhvf-jyjftdyyhb-wcew Additional Nov Bitewig-single Film Nutrit Couns For Control Of Heaters Dis Nov Limited Oral Eval PSYTX PT&/FAMILY [...] 60 MINUTES PSYCH DIAGNOSTIC EVALUATION Acute Detox Quantitative Associate Acute Detox Quantitative Associate Acute Detox Quantitative Associate Acute Detox Quantitative Associate Acute Detox Quantitative Associate DRUG TEST PRSMV DIR OPT OBS URINE TEST Acute Detox Quantitative Associate DRUG TEST PRSMV DIR OPT OBS URINE TEST Acute Detox Quantitative Associate Bitewig-single Film Intraoral-periapical 1st Film Yeobgrwnl-mqgfhfczaf-xqjj Additional June Ioopmiwly-myqdjiweiw-wsfe Additional June Oral Hygiene Instruction Limited Oral Eval Acute Detox Quantitative Associate Acute Detox Quantitative Associate Acute Detox Quantitative Associate Acute Detox Quantitative Associate DRUG TEST PRSMV DIR OPT OBS URINE TEST Acute Detox Quantitative Associate Advance Directives Directive Yes / No Effective Date File Name No Information Encounters Encounter Description Practice Location Reason(s) For Visit Diagnoses Date Provider Providers Copied on Encounter [facility], [address] [place] [address], [id number] , [place] tel:[phone] [facility] No Information Antelmo Blanco. [address] [place] [address], [id number], [place]. tel: [phone] PSYTX PT&/FAMILY 60 MINUTES [facility], [address] [place] [address], [id number] , [place] tel: [phone] [facility] Sedative, hypnotic or anxiolytic dependence, uncomplicatedPost-t raumatic stress disorder, chronicMajor depressive disorder, recurrent severe without psychotic featuresAgoraphobia with panic disorder 5 Antelmo Blanco. [address] [place] [address], [address], [place]. tel: [phone] PSYTX PT&/FAMILY 60 MINUTES [facility], [address] [place] [address], [id number] , [place] tel: [phone] [facility] Sedative, hypnotic or anxiolytic dependence, uncomplicatedPost-t raumatic stress disorder, chronicMajor depressive disorder, recurrent severe without psychotic featuresAgoraphobia with panic disorder 5 Antelmo Blnaco. [address] [place] [address], [address], [place]. tel: [phone] PSYTX PT&/FAMILY 60 MINUTES [facility], [address] [place] [address], [id number] , [place] tel: [phone] [facility] Sedative, hypnotic or anxiolytic dependence, uncomplicatedPost-t raumatic stress disorder, chronicMajor depressive disorder, recurrent severe without psychotic featuresAgoraphobia with panic disorder 5 Antelmo Blanco. [address] [place] [address], [address], [place]. tel: [phone] PSYTX PT&/FAMILY 60 MINUTES [facility], [address] [place] [address], [id number] , [place] tel: [phone] [facility] Sedative, hypnotic or anxiolytic dependence, uncomplicatedPost-t raumatic stress disorder, chronicMajor depressive disorder, recurrent severe without psychotic featuresAgoraphobia with panic disorder May- 5 Antelmo Blanco. [address] [place] [address], [address], [place]. tel: [phone] PSYTX PT&/FAMILY 60 MINUTES [facility], [address], [place], [id number] , [place] tel: [phone] [facility] Sedative, hypnotic or anxiolytic dependence, uncomplicatedPost-t raumatic stress disorder, chronicMajor depressive disorder, recurrent severe without psychotic featuresAgoraphobia with panic disorder Apr-0 5 Antelmo Blanco. [address] [place], [address], [place]. tel: [phone] [facility], [address], [place], [id number] , [place] tel: [phone] [facility] No Information 5 Klidas Brooke. [address], [place], [id number] , [place]. tel: [phone] [facility], [address] [place] [address], [id number] , [place] tel: [phone] [facility] No Information Apr- 5 Tom Garza. [address] [place], [address], [place]. tel: [phone] [facility], [address], [place], [id number] , [place] tel: [phone] [facility] No Information 5 Klidas Brooke. [address] [place] [address], [id number] , [place]. tel: [phone] [facility], [address], [place], [id number] , [place] tel: [phone] [facility] No Information 5 Klidas Brooke. [address] [place] [address], [id number] , [place]. tel: [phone] PSYTX PT&/FAMILY 60 MINUTES [facility], [address] [place] [address], [id number] , [place] tel: [phone] [facility] Sedative, hypnotic or anxiolytic dependence, uncomplicatedPost-t raumatic stress disorder, chronicMajor depressive disorder, recurrent severe without psychotic featuresAgoraphobia with panic disorder 5 Antelmo Blanco. [address] [place], [address], . tel: [phone] PSYTX PT&/FAMILY 60 MINUTES [facility], [address] [place] [address], [id number] , [place] tel: [phone] [facility] Sedative, hypnotic or anxiolytic dependence, uncomplicatedPost-t raumatic stress disorder, chronicMajor depressive disorder, recurrent severe without psychotic featuresAgoraphobia with panic disorder 5 Antelmo Blanco. [address] [place], [address], . tel: [phone] PSYTX PT&/FAMILY 60 MINUTES [facility], [address] [place] [address], [id number] , [place] tel: [phone] [facility] Sedative, hypnotic or anxiolytic dependence, uncomplicatedPost-t raumatic stress disorder, chronicMajor depressive disorder, recurrent severe without psychotic featuresAgoraphobia with panic disorder 4 Antelmo Blanco. [address] [place], [address], . tel: [phone] PSYTX PT&/FAMILY 60 MINUTES [facility], [address] [place] [address], [id number] , [place] tel: [phone] [facility] Sedative, hypnotic or anxiolytic dependence, uncomplicatedPanic disorder [episodic paroxysmal anxiety]Post-trauma tic stress disorder, chronicMajor depressive disorder, recurrent severe without psychotic features 4 Antelmo Blanco. [address] [place], [address], . tel: [phone] PSYTX PT&/FAMILY 60 MINUTES [facility], [address] [place] [address], [id number] , [place] tel: [phone] [facility] Sedative, hypnotic or anxiolytic dependence, uncomplicatedPanic disorder [episodic paroxysmal anxiety]Post-trauma tic stress disorder, chronicMajor depressive disorder, recurrent severe without psychotic features 4 Antelmo Blanco. [address] [place], [address], . tel: [phone] PSYTX PT&/FAMILY 60 MINUTES [facility], [address] [place] [address], [id number] , [place] tel: [phone] [facility] Sedative, hypnotic or anxiolytic dependence, uncomplicatedPanic disorder [episodic paroxysmal anxiety]Post-trauma tic stress disorder, chronicMajor depressive disorder, recurrent severe without psychotic features 4 Antelmo Blanco. [address] [place], [address], [place]. tel: [phone] PSYTX PT&/FAMILY 60 MINUTES [facility], [address] [place] [address], [id number] , [place] tel: [phone] [facility] Sedative, hypnotic or anxiolytic dependence, uncomplicatedPanic disorder [episodic paroxysmal anxiety]Post-trauma tic stress disorder, chronicMajor depressive disorder, recurrent severe without psychotic features 4 Antelmo Blanco. [address] [place], [address], [place]. tel: [phone] PSYTX PT&/FAMILY 60 MINUTES [facility], [address] [place] [address], [id number] , [place] tel: [phone] [facility] Sedative, hypnotic or anxiolytic dependence, uncomplicatedPanic disorder [episodic paroxysmal anxiety]Post-trauma tic stress disorder, chronicMajor depressive disorder, recurrent severe without psychotic features 4 Antelmo Blanco. [address] [place], [address], [place]. tel: [phone] PSYTX PT&/FAMILY 60 MINUTES [facility], [address] [place] [address], [id number] , [place] tel: [phone] [facility] Sedative, hypnotic or anxiolytic dependence, uncomplicatedPanic disorder [episodic paroxysmal anxiety]Post-trauma tic stress disorder, chronicMajor depressive disorder, recurrent severe without psychotic features 4 Antelmo LALAGildaRadha Bella. [address] [place], [address], [place]. tel: [phone] PSYTX PT&/FAMILY 60 MINUTES [facility], [address], [place], [id number] , [place] tel: [phone] [facility] Sedative, hypnotic or anxiolytic dependence, uncomplicatedPanic disorder [episodic paroxysmal anxiety]Post-trauma tic stress disorder, chronicMajor depressive disorder, recurrent severe without psychotic features 4 Antelmo Sandersnifer. [address] [place], [address], [place]. tel: [phone] PSYTX PT&/FAMILY 60 MINUTES [facility], [address] [place] [address], [id number] , [place] tel: [phone] [facility] Sedative, hypnotic or anxiolytic dependence, uncomplicatedPanic disorder [episodic paroxysmal anxiety]Post-trauma tic stress disorder, chronicMajor depressive disorder, recurrent severe without psychotic features 4 Antelmo Sandersnifer. [address] [place], [address], [place]. tel: [phone] PSYTX PT&/FAMILY 60 MINUTES [facility], [address] [place] [address], [id number] , [place] tel: [phone] [facility] Sedative, hypnotic or anxiolytic dependence, uncomplicatedPanic disorder [episodic paroxysmal anxiety]Post-trauma tic stress disorder, chronicMajor depressive disorder, recurrent severe without psychotic features 4 Antelmo LALAGildaRadha Bella. [address] [place], [address], [place]. tel: [phone] PSYTX PT&/FAMILY 60 MINUTES [facility], [address] [place] [address], [id number] , [place] tel: [phone] [facility] Sedative, hypnotic or anxiolytic dependence, uncomplicatedPanic disorder [episodic paroxysmal anxiety]Post-trauma tic stress disorder, chronicMajor depressive disorder, recurrent severe without psychotic features 4 Antelmo Blanco. [address] [place], [address], [place]. tel: [phone] PSYTX PT&/FAMILY 60 MINUTES [facility], [address], [place], [id number] , [place] tel: [phone] [facility] Sedative, hypnotic or anxiolytic dependence, uncomplicatedPanic disorder [episodic paroxysmal anxiety]Post-trauma tic stress disorder, chronicMajor depressive disorder, recurrent severe without psychotic features 0 4 Antelmo Blanco. [address] [place], [address], [place]. tel: [phone] [facility], [address] [place] [address], [id number] , [place] tel: [phone] Dental Clinic er (chief complaint) Encounter for screening for dental disorders 4 Geoff Dahl. [address], [place], [id number] , [place]. tel: [phone] PSYTX PT&/FAMILY 60 MINUTES [facility], [address] [place] [address], [id number] , [place] tel: [phone] [facility] Sedative, hypnotic or anxiolytic dependence, uncomplicatedPanic disorder [episodic paroxysmal anxiety]Post-trauma tic stress disorder, chronicMajor depressive disorder, recurrent severe without psychotic features 0 4 Antelmo Blanco. [address] [place], [address], [place]. tel: [phone] PSYTX PT&/FAMILY 60 MINUTES [facility], [address] [place] [address], [id number] , [place] tel: [phone] [facility] Panic disorder [episodic paroxysmal anxiety]Post-trauma tic stress disorder, chronicMajor depressive disorder, recurrent, moderate 0 4 Antelmo Blanco. [address] [place], [address], [place]. tel: [phone] PSYTX PT&/FAMILY 60 MINUTES [facility], [address] [place] [address], [id number] , [place] tel: [phone] [facility] Panic disorder [episodic paroxysmal anxiety]Post-trauma tic stress disorder, chronicMajor depressive disorder, recurrent, moderate Oct-0 - 4 Antelmo Blanco. [address] [place], [address], [place]. tel: [phone] PSYTX PT&/FAMILY 60 MINUTES [facility], [address], [place], [id number] , [place] tel: [phone] [facility] Panic disorder [episodic paroxysmal anxiety]Post-trauma tic stress disorder, chronicMajor depressive disorder, recurrent, moderate Sep-2 4 Antelmo Blanco. [address] [place], [address], [place]. tel: [phone] PSYTX PT&/FAMILY 60 MINUTES [facility], [address] [place] [address], [id number] , [place] tel: [phone] [facility] Panic disorder [episodic paroxysmal anxiety]Post-trauma tic stress disorder, chronic Sep-2 4 Antelmo Blanco. [address] [place], [address], [place]. tel: [phone] PSYTX PT&/FAMILY 60 MINUTES [facility], [address] [place] [address], [id number] , [place] tel: [phone] [facility] Panic disorder [episodic paroxysmal anxiety]Post-trauma tic stress disorder, chronic Sep-1 4 Antelmo Blanco. [address] [place], [address], [place]. tel: [phone] PSYTX PT&/FAMILY 60 MINUTES [facility], [address] [place] [address], [id number] , [place] tel: [phone] [facility] Panic disorder [episodic paroxysmal anxiety] Sep-1 4 Antelmo Blanco. [address] [place], [address], [place]. tel: [phone] PSYTX PT&/FAMILY 60 MINUTES [facility], [address], [place], [id number] , [place] tel: [phone] [facility] Panic disorder [episodic paroxysmal anxiety] Sep-0 4 Antelmo Blanco. [address] [place], [address], [place]. tel: [phone] [facility], [address], [place], [id number] , [place] tel: [phone] [facility] Panic disorder [episodic paroxysmal anxiety] Sep-0 4 Antelmo Blanco. [address] [place], [address], [place]. tel: [phone] PSYTX PT&/FAMILY 60 MINUTES [facility], [address] [place] [address], [id number] , [place] tel: [phone] [facility] Panic disorder [episodic paroxysmal anxiety]Major depressive disorder, recurrent severe without psychotic features Sep-0 4 Antelmo Blanco. [address] [place], [address], [place]. tel: [phone] PSYTX PT&/FAMILY 60 MINUTES [facility], [address], [place], [id number] , [place] tel: [phone] [facility] Panic disorder [episodic paroxysmal anxiety]Major depressive disorder, recurrent severe without psychotic features 4 Antelmo Sandersnifer. [address] [place], [address], [place]. tel: [phone] PSYTX PT&/FAMILY 60 MINUTES [facility], [address] [place] [address], [id number] , [place] tel: [phone] [facility] Panic disorder [episodic paroxysmal anxiety]Major depressive disorder, recurrent severe without psychotic features 4 Antelmo Blanco. [address] [place], [address], [place]. tel: [phone] PSYTX PT&/FAMILY 60 MINUTES [facility], [address] [place] [address], [id number] , [place] tel: [phone] [facility] Panic disorder [episodic paroxysmal anxiety]Major depressive disorder, recurrent severe without psychotic features 4 Antelmo Blanco. [address] [place], [address], . tel:[phone] PSYTX PT&/FAMILY 60 MINUTES [facility], [address], [place], [id number] , [place] tel: [phone] [facility] Panic disorder [episodic paroxysmal anxiety]Major depressive disorder, recurrent severe without psychotic features 0 4 Antelmo Blanco. [address] [place], [address], [place]. tel:[phone] PSYTX PT&/FAMILY 60 MINUTES [facility], [address] [place] [address], [id number] , [place] tel: [phone] [facility] Panic disorder [episodic paroxysmal anxiety]Major depressive disorder, recurrent severe without psychotic features 0 4 Antelmo Blanco. [address] [place], [address], [place]. tel: [phone] PSYTX PT&/FAMILY 60 MINUTES [facility], [address] [place] [address], [id number] , [place] tel: [phone] [facility] Panic disorder [episodic paroxysmal anxiety]Major depressive disorder, recurrent severe without psychotic features 0 4 Antelmo Blanco. [address] [place], [address], [place]. tel: [phone] PSYTX PT&/FAMILY 60 MINUTES [facility], [address] [place] [address], [id number] , [place] tel: [phone] [facility] Panic disorder [episodic paroxysmal anxiety]Major depressive disorder, recurrent severe without psychotic features 4 Antelmo Blanco. [address] [place], [address], [place]. tel:[phone] PSYTX PT&/FAMILY 60 MINUTES [facility], [address], [place], [id number] , [place] tel: [phone] [facility] Panic disorder [episodic paroxysmal anxiety]Major depressive disorder, recurrent severe without psychotic features 4 Antelmo Blanco. [address] [place], [address], [place]. tel: [phone] PSYTX PT&/FAMILY 60 MINUTES [facility], [address] [place] [address], [id number] , [place] tel: [phone] [facility] Panic disorder [episodic paroxysmal anxiety]Major depressive disorder, recurrent severe without psychotic features 4 Antelmo Blanco. [address] [place], [address], [place]. tel: [phone] PSYTX PT&/FAMILY 60 MINUTES [facility], [address] [place] [address], [id number] , [place] tel: [phone] [facility] Panic disorder [episodic paroxysmal anxiety]Major depressive disorder, recurrent severe without psychotic features 4 Antelmo Blanco. [address] [place], [address], [place]. tel: [phone] PSYTX PT&/FAMILY 60 MINUTES [facility], [address] [place] [address], [id number] , [place] tel: [phone] [facility] Panic disorder [episodic paroxysmal anxiety]Major depressive disorder, recurrent severe without psychotic features 4 Antelmo Blanco. [address] [place], [address], [place]. tel: [phone] PSYCH DIAGNOSTIC EVALUATION [facility], [address] [place] [address], [id number] , [place] tel: [phone] [facility] Panic disorder [episodic paroxysmal anxiety]Major depressive disorder, recurrent severe without psychotic features 4 Antelmo Blanco. [address] [place] [address], [address], [place]. tel: [phone] [facility], [address], [place], [id number] , [place] tel: [phone] [facility] No Information 4 Tom Garza. [address] [place], [address], [place]. tel: [phone] [facility], [address], [place], [id number] , [place] tel: [phone] [facility] No Information 4 Klidas Brooke. [address], [place], [id number] , [place]. tel: [phone] [facility], [address] [place] [address], [id number] , [place] tel: [phone] [facility] Panic disorder [episodic paroxysmal anxiety]Major depressive disorder, recurrent severe without psychotic features 4 Antelmo Blanco. [address] [place], [address], [place]. tel: [phone] [facility], [address], [place], [id number] , [place] tel: [phone] [facility] No Information 4 Klidas Brooke. [address] [place] [address], [id number] , [place]. tel: [phone] [facility], [address] [place] [address], [id number] , [place] tel: [phone] [facility] No Information 4 Klidas Brooke. [address], [place], [id number] , [place]. tel: [phone] [facility], [address], [place], [id number] , [place] tel: [phone] [facility] No Information 4 Klidas Brooke. [address] [place] [address], [id number] , [place]. tel: [phone] [facility], [address] [place] [address], [id number] , [place] tel: [phone] [facility] No Information 4 Klidas Brooke. [address], [place], [id number] , [place]. tel: [phone] [facility], [address], [place], [id number] , [place] tel: [phone] [facility] No Information 4 Tom Garza. [address] [place], [address], [place]. tel: [phone] [facility], [address] [place] [address], [id number] , [place] tel: [phone] Dental [facility] ER (chief complaint) Body mass index [BMI] 45.0-49.9, adultEncounter for screening for dental disorders 4 Geoff Dahl. [address], [place], [id number] , [place]. tel: [phone] [facility], [address] [place] [address], [id number] , [place] tel: [phone] [facility] No Information 0 4 Klidas Brooke. [address], [place], [id number] , [place]. tel: [phone] [facility], [address] [place] [address], [id number] , [place] tel: [phone] [facility] No Information 0 4 Klidas Brooke. [address] [place] [address], [id number] , [place]. tel: [phone] [facility], [address] [place] [address], [id number] , [place] tel: [phone] [facility] No Information 0 4 Tom Garza. [address] [place], [address], [place]. tel: [phone] [facility], [address] [place] [address], [id number] , [place] tel: [phone] [facility] No Information 4 Lida Cox. [address], [place], [id number] , [place]. tel: [phone] [facility], [address], [place], [id number] , [place] tel: [phone] [facility] No Information 4 iLda Cox. [address], [place], [id number] , [place]. tel: [phone] Family History Family Member Type Diagnosis Age At Onset No Information Payers Payer name Insurance type Covered libertarian ID Authoriza tion(s) No Information Social History Type Description Quantity Date Captured Comments Sex Female Smoking Status No Information Sexual Orientation Straight or heterosexual Gender Identity Female Chief Complaint And Reason For Visit No Information Reason For Referral Reason For Referral No Information Plan Of Treatment Date Type Action Status Goal Hepatitis C screening. Due o n due Goal FIT-DNA. Due on due Goal Tdap Vaccine. Due on 2024 due Goal Unhealthy drug use screening . Due on due Goal Tdap. Due on due Goal HPV. Due on due Goal CT-Colonography. Due on due Goal Influenza vaccine. Due on due Goal Lipid panel. Due on 025 due Goal PRAPARE ASSESSMENT. Due on due Goal Depression screening. Due on due Goal Mammogram. Due on due Goal Zoster vaccine (1st). Due on due Goal FIT. Due on due Goal FOBT. Due on due Goal Colonoscopy. Due on due Goal Hep A. Due on du e Goal FIT. Due on due Goal FOBT. [...] Influenza vaccine. Due on Ap due Goal FIT-DNA. Due on due Goal [...] Tdap. Due on due Goal Zoster vaccine (). [...] PRAPARE ASSESSMENT. Due on O due Goal Depression screening. Due on due [...] PRAPARE ASSESSMENT. Due on O due Goal FIT. Due on due Goal [...] Goal PRAPARE ASSESSMENT. Due on due Goal FIT. Due on [...] Goal PRAPARE ASSESSMENT. Due on due Goal FIT. Due on [...] Goal Depression screening. Due on due Goal Hep A. Due on du e Goal HPV. Due on due Goal Depression [...] PRAPARE ASSESSMENT. Due on A due Goal Mammogram. Due on due Goal [...] . Due on due Goal Zoster vaccine (1st). [...] Goal PRAPARE ASSESSMENT. Due on due Goal Hep A. Due on du e Goal Dietary management education , guidance, and [...] [BMI] 45.0-49.9, adult Assessments Type Assessment Date No Information Patient Care Teams Name Effective Dates (start - stop) Status Members No Information
--- OUTSIDE RECORDS SUMMARY | 2024-07-20 11:45 | XMS_ITS ---
Author Organization [facility] in [place] Address [address] [place] [address] Care Team Providers Care Advertising Sales Manager Name Role Phone DAVEY CABEZAS MD Primary Care Provider [phone] Davey Cabezas Unavailable [phone] Allergies Allergen (clinical drug ingredient) Drug/Non Drug Allergy documented on EMR Reaction Allergy Type Onset Date Status metformin metFORMIN HCl stomach upset Drug Allergy Active ibuprofen Ibuprofen stomach upset Drug Allergy Act libertad Reason For Referral Diagnosis 1 Weakness (R53.1) Referral Organization [facility] Medicine Referring Provider First Name Davey Referring Provider Last Name Raulito Referring Provider Speciality Family Med icine Referred Provider [facility], Physical Therap y Referred Provider Specialty Physical The rapist Referral Priority Routine REASON FOR VISIT cough and congestion- 2 weeks- took Zpak and didnt work, Was in Urgent care and told was maybe Viral, Blisters in gum line and lip, Weak, SOB, PICA cravings seem to be coming back- markers, Lysol, Needs Albuterol, Promethazine and Zofran filled- [place] DM Medications Medication SIG (Take, Route, Frequency, Duration) Notes Start Date End Date Status Semaglutide 0.3 mg/0.25mL 0.3 mg/0.25 mL 0.25 mL Subcutaneous Once weekly for 30 days 05/23/2024 Active Protonix 40 MG 1 tablet Orally Once a day for 30 days 10/26/2023 Active Ventolin HFA 108 (90 Base) MCG/ACT 1 puff as needed Inhalation every 4 hrs for 30 days PRN Active Promethazine HCl 25 MG 1 tablet as neede d Orally q6h for 30 days PRN 02/22/2023 Active Haloperidol 2 MG 1 tablet Orally thre e times daily for 30 days Active Ondansetron 4 MG 1 tablet on the tong ue and allow to dissolve Orally qid PRN 06/28/2024 Active Levothyroxine Sodium 75 MCG 1 tablet in the morning on an empty stomach Orally Once a day Active Paxil 40 MG 1 tablet in the morn ing Orally Once a day for 30 days Active BIPAP -- as directed Active Doxepin HCl 50 MG 1 capsule at bedtime Orally Once a day for 30 days 05/22/2024 Active valACYclovir HCl 500 MG 1 tablet Orally tid for 10 days 07/20/2024 Active chlordiazePOXIDE HCl 10 MG 1 capsule Orally tid PRN for 7 days needs to last a week 07/14/2024 Active Cefdinir 300 MG 2 capsule Orally onc e a day for 10 days 07/20/2024 Active Social History Tobacco Use: Social History Observation Description Date Details (start date - stop date) Never Smoker NA - NA Tobacco Use/Smoking Question Answer Notes Patient is a nonsmoker Problems Problem Type SNOMED Code ICD Code Onset Dates Problem Status W/U Status Risk Notes Problem Acute bronchitis (J20.9) Active confirmed Vital Signs Temperature 99.5 degrees Fahrenheit 07/21/19 25 Blood pressure systolic 124 mm Hg 07/21/19 25 Blood pressure diastolic 82 mm Hg 025 Heart Rate 81 /min 07/20/2024 Height 62.5 in 07/20/2024 Weight 265.8 lbs 07/20/2024 BMI 47.84 kg/m2 07/20/2024 Oximetry 99 % 07/20/2024 Encounters Encounter Location Date Provider Diagnosis [facility] Medicine [address] [place] [address] 07/20/2024 Davey Hoy Anemia D64.9 ; Vitam in D deficiency E55.9 ; 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 ; Acute bronchitis J20.9 and Weakness R53.1 Assessments Encounter Date Diagnosis (ICD Code) Assessment Notes Treatment Notes Treatment Clinical Notes Section Notes 07/20/2024 Anemia (ICD-10 - D64.9) 07/20/2024 Vitamin D deficiency (ICD-10 - E55.9) 07/20/2024 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) 07/20/2024 Acute bronchitis (ICD-10 - J20.9) 07/20/2024 Weakness (ICD-10 - R53.1) Plan Of Treatment Medication Medication Name Sig Start Date Stop Date Notes valACYclovir HCl 500 MG 1 tablet Orally tid for 10 days Cefdinir 300 MG 2 capsule Orally onc e a day for 10 days 07/20/2024 Pending Test Test Name Order Date IRON, TOTAL 07/20/2024 VITAMIN D, 25 LEVEL (TOTAL) 07/20/2024 RHEUMATOID PANEL 07/20/2024 FERRITIN 07/20/2024 VIT B12 AND FOLATE 07/20/2024 XR CHEST 2 V 07/20/2024 THYROID PANEL (T4/TSH/FREE T3) Transferrin 07/20/2024 CMP (COMP MET PEREZ) w/eGFR CKD-EPI 2024 CBC WITH DIFF 07/20/2024 Referrals Referral Date Details 07/20/2024 07/20/2024, Physical Therapy [facility] Progress Notes * Esme REYES SDOB: [birth year] (49 yo F)Acc No.[id number]:07/20/2024 UNLOCKED PROGRESS NOTE Progress Note Patient: Esme JOHNSON Provider: Kari Cabezas ([facility])MD :1975 A ge:49 Y S ex:Female Date:07/20/2024 Address:[facility] [address], [place], [place], [id number] Pcp:DAVEY CABEZAS MD Check In:03:37 PM ESTCheck O ut:04:16 PM EST Subjective: * Chief Complaints: * 1 . cough and congestion- 2 weeks- took Zpak and didnt work. 2. Was in Urgent care and told was maybe Viral. 3. Blisters in gum line and lip. 4. Weak, SOB. 5. PICA cravings seem to be coming back- markers, Lysol. 6. Needs Albuterol, Promethazine and Zofran filled- [place] DM. * HPI: G eneral: haing pica symtposm - needs la bs cough persisitn g- z-pack didnt help. * ROS: E ENT: hearing changes d enies. v isual changes d enies.?non-healing mouth sores d enies. s wollen glands or neck lumps d enies. h oarseness d enies. s ore throat d enies. d ifficulty swallowing d enies. n ose bleeds d enies. n deann congestion d enies. e ar ache d enies. e ar discharge?denies. r inging in ears d enies. l ight sensitivity d enies. e ye pain d enies. b lurring d enies. e ye irritation d enies. d ouble vision d enies.?vision loss d enies. G eneral/Constitutional: Sweats: D enies. F atigue d enies. S leep problems d enies. A norexia d enies. M alaise d enies. W eight loss d enies.?Fatigue or Weakness d enies. F ever or Chills d enies. C ardiovascular: Shortness of Breath w/lying flat d enies. L ightheadedness/dizziness d enies. C hest tightness/ heavy pressure d enies. S welling of legs, ankles, or feet d enies. W aking up with shortness of breath d enies. C hest pain denies. P alpitations d enies. W eight gain d enies. R espiratory: Chronic or frequent cough d enies. C oughing up blood?denies. D ifficulty breathing d enies. P roductive cough d enies. S noring?denies. S hortness of breath that awakens from sleep (PND) d enies. C hest pain d enies. S putum production d enies. W heezing d enies. M usculoskeletal: Joint pain d enies. J oint Fluid d enies. B ack pain d enies. K nee pain d enies. N kaylene pain d enies. J oint Stiffness d enies. M uscle cramps d enies. W eakness of muscles d enies. A rthritis d enies. M uscle aches d enies. P ain in shoulder(s) d enies. S wollen joints d enies. * Medical History: A nemia, Dehydration, moderate, Dysmenorrhea, Calculus, ureteral, Knee pain, right, Hip pain, Dysphagia, History of cardiac catheterization, H/O cardiac catheterization, Other specified postprocedural states, Edema, Diverticulitis of colon, Syncope, Follicular thyroid carcinoma, Plantar fasciitis, Hiatal hernia, Obesity, Diabetes mellitus, Vitamin D deficiency, Chronic lymphocytic thyroiditis, Palpitations, Insomnia, Peace's thyroiditis, Menometrorrhagia, Dyshidrotic eczema, Arthralgia, Esophageal stricture, Gastro-esophageal reflux disease, Graves' disease. * Surgical History: l ap gastric bypass 2016. * Hospitalization/Major Diagno stic Procedure: C OVID long haulers 2021, syncope 2020, hernia 2016. * Family History: F ather: , multiple sclerosis, diagnosed with Unspecified essential hypertension, Unspecified heart disease. M other: alive 73 yrs, thyroid disease, osteoarthritis, skin cancer. S ister(s): alive, multiple sclerosis, GI issues. S on(s): alive, bipolar, depression. 2 sister(s) - healthy. 3 son(s) - healthy. . * Social History: T obacco Use: T obacco Use/Smoking P atient is a n onsmoker * Medications: T aking BIPAP -- as directed , Taking chlordiazePOXIDE HCl 10 MG Capsule 1 capsule Orally tid PRN needs to last a week, Taking Doxepin HCl 50 MG Capsule 1 capsule at bedtime Orally Once a day , Taking Haloperidol 2 MG Tablet 1 tablet Orally three times daily , Taking Levothyroxine Sodium 75 MCG Tablet 1 tablet in the morning on an empty stomach Orally Once a day , Taking Ondansetron 4 MG Tablet Disintegrating 1 tablet on the tongue and allow to dissolve Orally qid , Notes to Pharmacist: PRN, Taking Paxil(PARoxetine HCl) 40 MG Tablet 1 tablet in the morning Orally Once a day , Taking Promethazine HCl 25 MG Tablet 1 tablet as needed Orally q6h , Notes to Pharmacist: PRN, Taking Protonix(Pantoprazole Sodium) 40 MG Tablet Delayed Release 1 tablet Orally Once a day , Taking Semaglutide 0.3 mg/0.25mL 0.3 mg/0.25 mL Solution Auto-injector 0.25 mL Subcutaneous Once weekly , Taking Ventolin HFA(Albuterol Sulfate HFA) 108 (90 Base) MCG/ACT Aerosol Solution 1 puff as needed Inhalation every 4 hrs , Notes to Pharmacist: PRN, Discontinued Amoxicillin-Pot Clavulanate 600- 42.9 MG/5ML Suspension Reconstituted 5 mL Orally BID , Discontinued Ativan(LORazepam) 1 MG Tablet 1 tablet Orally TID PRN , Discontinued Azithromycin 250 MG Tablet 2 tabs today then 1 tab Orally daily , Discontinued Folic Acid 1 MG Tablet 1 tablet Orally Once a day , Discontinued Gabapentin 300 MG Capsule 1 capsule Orally three times a day , Discontinued Imitrex(SUMAtriptan Succinate) 100 MG Tablet 1 tablet at least 2 hours between doses as needed Orally Twice a day , Discontinued Propranolol HCl 10 MG Tablet 1 tablet Orally QID PRN , Medication List reviewed and reconciled with the patient * Allergies: m etFORMIN HCl: stomach upset - Criticality High, Ibuprofen: stomach upset - Criticality High. Objective: * Vitals: W t:265.8lbs, Ht: 62.5 in, BP:124/82mm Hg, Temp:99.5F, HR:81/min, BMI:47.84Index, Oxygen sat %:99%, Ht-cm: 158.75 cm, Wt-k.57 kg. * Examination: P hysical Exam: GENERAL: w ell developed, well nourished, in no acute distress. HEAD: n ormocephalic/atraumatic. EYES: p upils equal, round and reactive to light, conjunctivae and sclerae normal. EARS: n o deformity or lesion of external ear, canals and TM appear normal bilaterally, TM's intact, not inflamed with normal light reflex, hearing grossly normal to conversational speech. NOSE: n o deformity, discharge, inflammation, or lesions.? MOUTH: m ucous membranes moist, normal oropharynx and posterior pharynx without lesions or exudates, tongue normal, dentition normal. NECK: n kaylene supple, no masses or palpable cervical nodes, trachea midline, thyroid without nodules, masses, tenderness, or enlargement. CHEST: n o chest wall deformity, no chest wall tenderness.? LUNGS: n ormal respiratory effort and clear to auscultation, no wheezes, rales, or rhonchi, good air exchange. CARDIO: r egular rate and rhythm, normal S1 and S2, nor murmur, rub, or gallop. PULSES: n ormal capillary refill. ABDOMEN: s oft, non-distended, non-tender, no masses. MUSCULOSKELETAL: n o deformity or scoliosis noted, normal range of motion, joints normal, no erythema, edema, effusion, or ecchymosis. EXTREMITY: n o clubbing, cyanosis, edema, or deformity with normal ROM in both upper and lower bilateral extremities. NEUROLOGIC: g rossly normal. SKIN: n o rashes, ulcerations, or suspicious lesions. LYMPH NODES: n o cervical adenopathy, nodes normal. MENTAL STATUS: a lert and oriented x3, normal mood and affect. Assessment: * Assessment: 1. A nemia - D64.9 (Primary) 2 . V itamin D deficiency - E55.9 ?3. H ashimoto's thyroiditis - E06.3 4 . A cute bronchitis - J20.9 ? 5 . W eakness - R53.1 Plan: * Treatment: 2. V itamin D deficiency L AB: IRON, TOTAL L AB: VITAMIN D, 25 LEVEL (TOTAL) L AB: THYROID PANEL (T4/TSH/FREE T3) L AB: CMP (COMP MET PEREZ) w/eGFR CKD-EPI L AB: CBC WITH DIFF 3. H ashimoto's thyroiditis L AB: IRON, TOTAL L AB: VITAMIN D, 25 LEVEL (TOTAL) L AB: THYROID PANEL (T4/TSH/FREE T3) L AB: CMP (COMP MET PEREZ) w/eGFR CKD-EPI L AB: CBC WITH DIFF 4. A cute bronchitis L AB: IRON, TOTAL L AB: VITAMIN D, 25 LEVEL (TOTAL) L AB: THYROID PANEL (T4/TSH/FREE T3) L AB: CMP (COMP MET PEREZ) w/eGFR CKD-EPI L AB: CBC WITH DIFF 5. W eakness Referral To:Physical Therapy [facility] Physical Therapist Reason: * Preventive Medicine: Screenings/Counseling: B RI ACTION PLAN Above Normal BMI Follow-up D ietary management education, guidance, and counseling * * Electronic signature of Davey Cabezas MD, [phone] on 07/20/2024 at 04:28 PM EDT Sign off status: Pending Visit Status: C HK (Check Out) * Provider: Kari Cabezas ([facility])MD Date: 07/20/2024 Generated for Printi ng/Faxing/eTransmitting on: 07/20/2024 04:28 PM EDT History and Physical Notes * HPI (History of Present Illness) Category Sub-Category Detail Notes Category Not es General haing pica symtposm - needs la bs cough persisitn g- z-pack didnt help Examination Category Sub-Category Detail Notes Category Not es Physical Exam GENERAL: well developed, well nourished, in no acute distress HEAD: normocephalic/atraum atic EYES: pupils equal, round and reactive to light, conjunctivae and sclerae normal EARS: no deformity or lesi on of external ear, canals and TM appear normal bilaterally, TM's intact, not inflamed with normal light reflex, hearing grossly normal to conversational speech NOSE: no deformity, discha rge, inflammation, or lesions MOUTH: mucous membranes hayden st, normal oropharynx and posterior pharynx without lesions or exudates, tongue normal, dentition normal NECK: neck supple, no mass es or palpable cervical nodes, trachea midline, thyroid without nodules, masses, tenderness, or enlargement CHEST: no chest wall deform ity, no chest wall tenderness LUNGS: normal respiratory e ffort and clear to auscultation, no wheezes, rales, or rhonchi, good air exchange CARDIO: regular rate and rhy thm, normal S1 and S2, nor murmur, rub, or gallop PULSES: normal capillary ref ill ABDOMEN: soft, non-distended, non-tender, no masses RECTAL: MUSCULOSKELETAL: no deformity or scol iosis noted, normal range of motion, joints normal, no erythema, edema, effusion, or ecchymosis EXTREMITY: no clubbing, cyanosi s, edema, or deformity with normal ROM in both upper and lower bilateral extremities NEUROLOGIC: grossly normal SKIN: no rashes, ulceratio ns, or suspicious lesions LYMPH NODES: no cervical adenopat hy, nodes normal MENTAL STATUS: alert and oriented x 3, normal mood and affect Consultation Request Notes Referral Date Referring Provider Referred Provider Not es 07/20/2024 Davey Cabezas TB, Physical Therapy
--- OUTSIDE RECORDS SUMMARY | 2024-07-20 16:27 | XMS_ITS | Encounter Summary ---
Demographics Address [address] [facility] [place] [address] Home Phone Mobile Phone Email Address Preferred Language ENG Marital Status Single Anabaptism Affiliation Unknown Race White Ethnic Group Not or Lati no Author Organization [facility] Address [address] [place] [address] Care Team Providers Care Paraffin Plant Sweater Operator Name Role Phone Farhat Cabezas MD Primary Care Provider [phone] Farhat Cabezas MD Unavailable [phone] Source Comments In the event this information is protected by the Federal Confidentiality of Alcohol and Drug AbusePatient Records regulations: The Federal rules restrict any use of the information to criminally investigate or prosecute any alcohol or drug abuse patient.[facility] Encounter Details Date Type Department Care Team (Late st Contact Info) Description 11/05/2020 [address] [facility] [address] [place], [place] [id number] Provider, [facility] Referral- CONSULT FOR ACUPUNCTURE Social History Tobacco Use Types Packs/Day Years Used Date Smoking Tobacco: Never Smokeless Tobacco: Never Alcohol Use Standard Drinks/Week Comments Not Currently 0 (1 standard drink = 0.6 oz pur e alcohol) Social PHQ-2 Answer Date Recorded PHQ-2 score 2 11/08/2020 Area Deprivation Index Answer Date Rod rded National Score (1-100), lower number is lower ri sk Not on file 01/16/2020 State Score (1-10), lower number is lower risk N ot on file 01/16/2020 Data from: https://www.neighborhoodatlas.[facility]/. Last address used for calculation Not on file 01/16/2020 Comments No Sex and Gender Information Value Date Recorded Sex Assigned at Not on file Legal Sex Female 9:47 AM EST Gender Identity Not on file Sexual Orientation Not on file COVID-19 Exposure Response Date Recorded In the last month, have you been in contact with someone who was confirmed or suspected to have Coronavirus / COVID-19? No / Unsure 11/05/2020 11:53 AM EDT documented as of this encounter Functional Status * Are you deaf or do you have serious difficulty hearing? Answer Date of Assessment Author No 12/14/2016 12:43 PM Mona Dubose (Rn) (Hist), RN * Are you blind or do you have serious difficulty seeing, even when wearing glasses? Answer Date of Assessment Author No 12/14/2016 12:43 PM Mona Dubose (Rn) (Hist), RN * Do you have serious difficulty walking or climbing stairs? Answer Date of Assessment Author No 12/14/2016 12:43 PM Mona Dubose (Rn) (Hist), RN * Do you have difficulty dressing or bathing? Answer Date of Assessment Author No 12/14/2016 12:43 PM Mona DuboseRn) (Hist), RN * Because of a physical, mental, or emotional condition, do you have difficulty doing errands alone such as visiting a doctor's office or shopping? Answer Date of Assessment Author No 12/14/2016 12:43 PM Mona DuboseRn) (Hist), RN documented as of this encounter Mental Status * Because of a physical, mental, or emotional condition, do you have serious difficulty concentrating, remembering, or making decisions? Answer Entry Date Author No 12/14/2016 12:43 PM Mona DuboseRn) (Hist), RN documented in this encounter Plan of Treatment Upcoming Encounters Date Type Department Care Team (Late st Contact Info) Description 08/30/2024 9:30 AM EDT [facility] [address] [place] [phone] Greg Nina APRN.CENTRAL OFFICE REPAIRER SUPERVISOR [address] [place] [address] diabetes follow up with me in 3 months virtually 11/20/2024 1:00 PM EDT [facility] [address] [place] [phone] Valdez Suarez MD [address] [place] [address] [address] [place], [place] [id number] follow up in 6 months documented as of this encounter Visit Diagnoses Not on filedocumented in this encounter Care Teams Paraffin Plant Sweater Operator Relationship Specialty Start Date End Date Farhat Cabezas MD PCP - General Family Medicine 01/13/11 Farhat Cabezas MD Referring Family Medicine 01/08/22 documented as of this encounter
--- OUTSIDE RECORDS SUMMARY | 2024-07-20 16:27 | XMS_ITS | Encounter Summary ---
Demographics Address [address] [place] [address] Home Phone Mobile Phone Email Address Preferred Language ENG Marital Status Single Taoism Affiliation Unknown Race White Ethnic Group Not or Lati no Author Organization [facility] Address [address] [place] [address] Care Team Providers Care Shock Absorber Installer Name Role Phone Farhat Cabezas MD Primary Care Provider [phone] Farhat Cabezas MD Unavailable [phone] Source Comments In the event this information is protected by the Federal Confidentiality of Alcohol and Drug AbusePatient Records regulations: The Federal rules restrict any use of the information to criminally investigate or prosecute any alcohol or drug abuse patient.[facility] Reason for Visit * Reason Comments Radiology XR Encounter Details Date Type Department Care Team (Late st Contact Info) Description 11/21/2020 Radiology General Radiology [address] [place] [address] Jonah Pavon, RT(R) Radiology XR Social History Tobacco Use Types Packs/Day Years [...] N ot on file 01/16/2020 Data from: https://www.neighborhoodatlas.[facility]/. Last address used for calculation Not [...] have Coronavirus / COVID-19? No / Unsure 11/22/2020 8:42 AM EDT documented as of this encounter Functional Status * Are you deaf or do you have serious difficulty hearing? Answer Date of Assessment Author No 12/14/2016 12:43 PM Mona DuboseRn) (Hist), RN * Are you blind or do you have serious difficulty seeing, even when wearing glasses? Answer Date of Assessment Author No 12/14/2016 12:43 PM Mona DuboseRn) (Hist), RN * Do you have serious difficulty walking or climbing stairs? Answer Date of Assessment Author No 12/14/2016 12:43 PM Mona DuboseRn) (Hist), RN * Do you have difficulty [...] DuboseRn) (Hist), RN documented in this encounter Progress Notes * Main Rollins RT(R) - 11/21/2020 10:29 AM EDT Radiology Service Progress Note PATIENT NAME: Esme Reyes DATE OF SERVICE: November 21, 2020 TIME: 10:29 AM PATIENT IDENTITY VERIFICATION COMPLETED USING TWO (2) IDENTIFIERS: Name and Date of confirmedby patient verbally. FALL SCREENING: Has the patient had 2 falls in the last year or 1 fall with injury or currently using an Ambulatory Assistive Device (Walker, Cane, Wheelchair, Crutches, etc.)? No PATIENT GENDER DATA: Female. status: : No status: NO. PATIENT RELEVANT IMPLANT DATA REVIEWED: Not Applicable RADIOLOGY DEPARTMENT: General X-ray: Exam(s) Completed: Spine X-Ray(s): Cervical AP / LAT / OBL Upper Extremity X-Ray(s): Shoulder, AP / TRUE AP / AXILLARY right PERIPHERAL IV DATA: Not applicable SIGNED BY: Travis Pavon RT(R) November 21, 2020 10:29 AM documented in this encounter Plan of Treatment Upcoming Encounters Date Type Department Care Team (Late st Contact Info) Description 08/30/2024 9:30 AM EDT [facility] Endocrinology [address] [place] [address] Greg Nina APRN.INSURANCE RISK ANALYST [address] [place] [address] diabetes follow up with me in 3 months virtually 11/20/2024 1:00 PM EDT [facility] [address] [place] [address] Valdez Suarez MD [address] [place] [address] [place], [place] [id number] follow up in 6 months documented as of this encounter Visit Diagnoses Not on filedocumented in this encounter Care Teams Shock Absorber Installer Relationship Specialty Start Date End Date Farhat Cabezas MD PCP - General Family Medicine 01/13/11 Farhat Cabezas MD Referring Family Medicine 01/08/22 documented as of this encounter
--- OUTSIDE RECORDS SUMMARY | 2024-07-20 16:27 | XMS_ITS | Encounter Summary ---
Demographics Address [address] [facility] [place] [address] Home Phone Mobile Phone Email Address Preferred Language ENG Marital Status Single Zoroastrian Affiliation Unknown Race White Ethnic Group Not or Lati no Author Organization [facility] Address [facility] [place] [address] Care Team Providers Care Outdoor Studies Director Name Role Phone Farhat Cabezas MD Primary Care Provider [phone] Farhat Cabezas MD Unavailable [phone] Source Comments In the event this information is protected by the Federal Confidentiality of Alcohol and Drug AbusePatient Records regulations: The Federal rules restrict any use of the information to criminally investigate or prosecute any alcohol or drug abuse patient.[facility] Encounter Details Date Type Department Care Team (Late st Contact Info) Description 11/22/2020 Get Medical Advice [facility] Physical Therapy [address] [place], [place] [id number] Tammy Rodriges, PT [address] [place] [address] Upcoming Appointment Question Social History Tobacco Use Types Packs/Day Years [...] N ot on file 01/16/2020 Data from: https://www.neighborhoodatlas.medicine.[facility]/. Last address used for calculation Not [...] have Coronavirus / COVID-19? No / Unsure 11/25/2020 7:41 AM EDT documented as of this encounter [...] of Assessment Author No 12/14/2016 12:43 PM oMna DuboseRn) (Hist), RN documented as of this [...] Contact Info) Description 08/30/2024 9:30 AM EDT [facility] Endocrinology [address] [place] [phone] Greg Nina APRN.MEDICINAL PLANT PICKER [address] [place], [place] [phone] diabetes follow up with me in 3 months virtually 11/20/2024 1:00 PM EDT [facility] Endocrinology [address] [place] [phone] Valdez Suarez MD [address] [place] [address] [address] [place], [place] [phone] follow up in 6 months documented as of this encounter Visit Diagnoses Not on filedocumented in this encounter Care Teams Outdoor Studies Director Relationship Specialty Start Date End Date Farhat Cabezas MD PCP - General Family Medicine 01/13/11 Farhat Cabezas MD Referring Family Medicine 01/08/22 documented as of this encounter
--- OUTSIDE RECORDS SUMMARY | 2024-07-20 16:27 | XMS_ITS | Encounter Summary ---
Demographics Address [address] [facility] [place] [address] Home Phone Mobile Phone Email Address Preferred Language ENG Marital Status Single Advent Affiliation Unknown Race White Ethnic Group Not or Lati no Author Organization [facility] Address [facility] [place] [address] Care Team Providers Care Dry Wall Installations Mechanic Name Role Phone Farhat Cabezas MD Primary Care Provider [phone] Farhat Cabezas MD Unavailable [phone] Source Comments In the event this information is protected by the Federal Confidentiality of Alcohol and Drug AbusePatient Records regulations: The Federal rules restrict any use of the information to criminally investigate or prosecute any alcohol or drug abuse patient.[facility] Encounter Details Date Type Department Care Team (Late st Contact Info) Description 08/31/2016 Patient Msg Medical Records [address] [place] [address] Provider, [facility] Medical Education Program Social History Tobacco Use Types Packs/Day Years Used Date Smoking Tobacco: Never Smokeless Tobacco: Never Alcohol Use Standard Drinks/Week Comments No 0 (1 standard drink = 0.6 oz pur e alcohol) Comments No Sex and Gender Information Value Date Recorded Sex Assigned at Not on file Legal Sex Female 9:47 AM EST Gender Identity Not on file Sexual Orientation Not on file documented as of this encounter Plan of Treatment Upcoming Encounters Date Type Department Care Team (Late st Contact Info) Description 08/30/2024 9:30 AM EDT [facility] Endocrinology [address] [place] [phone] Greg Nina APRN.BIT GATHERER [address] [place], [place] [phone] diabetes follow up with me in 3 months virtually 11/20/2024 1:00 PM EDT [facility] Endocrinology [address] [place] [address] Valdez Suarez MD [address] [place] [address] [address] [place], [place] [phone] follow up in 6 months documented as of this encounter Visit Diagnoses Not on filedocumented in this encounter Care Teams Dry Wall Installations Mechanic Relationship Specialty Start Date End Date Farhat Cabezas MD PCP - General Family Medicine 01/13/11 Farhat Cabezas MD Referring Family Medicine 01/08/22 documented as of this encounter
--- OUTSIDE RECORDS SUMMARY | 2024-07-20 16:28 | XMS_ITS | Encounter Summary ---
Demographics Address [address] [facility] [place] [address] Home Phone Mobile Phone Email Address Preferred Language ENG Marital Status Single Mosque Affiliation Unknown Race White Ethnic Group Not or Lati no Author Organization [facility] Address [address] [place] [address] Care Team Providers Care Basketball Coach Name Role Phone Farhat Cabezas MD Primary Care Provider [phone] Farhat Cabezas MD Unavailable [phone] Source Comments In the event this information is protected by the Federal Confidentiality of Alcohol and Drug AbusePatient Records regulations: The Federal rules restrict any use of the information to criminally investigate or prosecute any alcohol or drug abuse patient.[facility] Encounter Details Date Type Department Care Team (Late st Contact Info) Description 05/26/2018 Abstract [facility] REJ [address] [place] [address] [place] [address] [place], [place] [phone] Social History Tobacco Use Types Packs/Day Years Used Date Smoking Tobacco: Never Smokeless Tobacco: Never Alcohol Use Standard Drinks/Week Comments Yes 0 (1 standard drink = 0.6 oz pur e alcohol) Social Comments No Sex and Gender Information Value Date Recorded Sex Assigned at Not on file Legal Sex Female 9:47 AM EST Gender Identity Not on file Sexual Orientation Not on file documented as of this encounter Functional Status [...] PM Mona Dubose (Rn) (Hist), RN * Because of a physical, mental, or emotional condition, do you have difficulty doing errands alone such as visiting a doctor's office or shopping? Answer Date of Assessment Author No 12/14/2016 12:43 PM Mona Dubose (Rn) (Hist), RN documented as of this encounter Mental Status * Because of a physical, mental, or emotional condition, do you have serious difficulty concentrating, remembering, or making decisions? Answer Entry Date Author No 12/14/2016 12:43 PM Mona Dubose (Rn) (Hist), RN documented in this encounter Plan of Treatment Upcoming Encounters Date Type Department Care Team (Late st Contact Info) Description 08/30/2024 9:30 AM EDT [facility] Endocrinology [address] [place] [address] Greg Nina APRN.WAVE SOLDER OFFBEARER [address] [place] [address] diabetes follow up with me in 3 months virtually 11/20/2024 1:00 PM EDT [facility] Endocrinology [address] [place] [address] Valdez Suarez MD [address] [place] [address] [address] [place], [place] [phone] follow up in 6 months documented as of this encounter Visit Diagnoses Not on filedocumented in this encounter Care Teams Basketball Coach Relationship Specialty Start Date End Date Farhat Cabezas MD PCP - General Family Medicine 01/13/11 Farhat Cabezas MD Referring Family Medicine 01/08/22 documented as of this encounter
--- OUTSIDE RECORDS SUMMARY | 2024-07-20 16:28 | XMS_ITS | Clinical Summary ---
Demographics Address [address] [place] [address] Home Phone Mobile Phone Email Address Preferred Language ENG Marital Status Single Mu-Ism Affiliation Unknown Race White Ethnic Group Not or Lati no Author Organization [facility] Address [address] [place] [id number] Care Team Providers Care Senior Technical Trainer Name Role Phone Farhat Cabezas MD Primary Care Provider [phone] Farhat Cabezas MD Unavailable [phone] Allergies Active Allergy Reactions Criticality Noted Date Comments Iodine Other: See Comments 11/04/2020 Causes ENEIDA per pt Meloxicam Intolerance 08/05/2016 GI bleed with transfusion Ibuprofen Other: See Comments 11/06/2015 GI Bleed Nsaids (Non-Steroidal Anti-Inflammatory Drug) Unknown 03/05/2016 Prednisone Contraindication-Med ical Surgical 08/05/2016 GI bleed Scopolamine Mental Status Change 12/01/2016 Paranoia, confusion, hallucination Medications * This document contains information received from the source organization and may not represent a complete record from that organization. pantoprazole DR (PROTONIX) 40 mg tablet Take 1 tablet by mouth as needed. Active promethazine (PHENERGAN) 25 mg tablet Take 25 mg by mouth four times daily as needed. Active BIPAP Lifetime supplies for BiPAP 12/8 cm H20 including mask, heated tubing, humidity, filters. Dx: G47.33 Active meclizine (ANTIVERT) 25 mg tab Take 0.5-1 tablets by mouth three times daily as needed (for dizziness.). 30 tablet 1 Active CPAP/BIPAP/OTHER Type .CPAPSettings into a note to see current settings/supplies/ DME information. 1 Each 11/10/10 Active glucagon (BAQSIMI) 3 mg/actuation nasal sprayIndications:Ty pe 2 diabetes mellitus with hypoglycemia without coma, without long-term current use of insulin (HCC) Use 1 [place] in the nose as needed for low blood sugar. May repeat after 15 minutes using a new device if there is no response. 2 Each 2 Active CPAP/BIPAP/OTHERInd ications:TALIA (obstructive sleep apnea) Type .CPAPSettings into a note to see current settings/supplies/ DME information. 1 Each 2050 Active tretinoin (RETIN-A) 0.025 % topical cream Apply to affected area daily at bedtime. 20 g 2 Active Syringe with Needle, Safety (EASY TOUCH SHEATHLOCK SYRG-NDL) 3 mL 25 gauge x 1 syrgIndications:Rhe umatoid arthritis of multiple sites without rheumatoid factor (HCC),Positive anti-CCP test Weekly methotrexate injections, monthly vit b12 injections as instructed 1 Each Active diclofenac (VOLTAREN ARTHRITIS PAIN) 1 % topical gel Apply 4 g to affected area four times daily. 100 g 1 Active escitalopram oxalate (LEXAPRO) 10 mg tablet Take 10 mg by mouth once daily. Active Mirtazapine (REMERON) 7.5 mg tablet Take 7.5 mg by mouth daily at bedtime. 16.5mg per patient Active hydrOXYzine pamoate (VISTARIL) 25 mg capsule Take 25 mg by mouth two times a day as needed for anxiety. 50 mg per patient Active albuterol HFA (VENTOLIN HFA) 90 mcg/actuation inhaler 1 puff as needed Inhalation every 4 hrs for 30 days Active ARIPiprazole (ABILIFY) 5 mg tablet Take 1 tablet by mouth once daily. Active folic acid 1 mg tablet Take 1 tablet by mouth every afternoon. Active gabapentin (NEURONTIN) 100 mg capsule TAKE 1 CAPSULE BY MOUTH THREE TIMES DAILY FOR 15 DAYS Active LORazepam (ATIVAN) 1 mg tablet 1 tablet Orally TID PRN Active OLANZapine (ZYPREXA) 5 mg tablet TAKE 1 TABLET BY MOUTH EVERY 6 HOURS NEEDED for AGITATION FOR 15 DAYS Active propranolol (INDERAL) 10 mg tablet 1 tablet Orally QID PRN Active SUMAtriptan (IMITREX) 100 mg tablet 1 tablet at least 2 hours between doses as needed Orally Twice a day Active thiamine (VITAMIN B1) 100 mg tablet Take 1 tablet by mouth every 12 hours. Active blood sugar diagnostic (TRUE METRIX GLUCOSE TEST STRIP) test stripIndications:Ty pe 2 diabetes mellitus with hypoglycemia without coma, without long-term current use of insulin (HCC) Use with blood glucose test two times a day. Insulin Dep? No 200 Strip Active Blood-Glucose Meter (TRUE METRIX GLUCOSE METER)Indications:T ype 2 diabetes mellitus with hypoglycemia without coma, without long-term current use of insulin (HCC) dispense 1 meter 1 Each Active lancets (UNILET LANCETS) 30 gaugeIndications:Ty pe 2 diabetes mellitus with hypoglycemia without coma, without long-term current use of insulin (HCC) Use with blood glucose test two times a day. Insulin Dep? No 200 Each Active metoprolol tartrate, short acting, (LOPRESSOR) 50 mg tablet Take one 50 mg tablet the evening prior to the CTA examination, take another 50 mg tablet the morning of the CTA examination. 2 tablet Active nitroglycerin sublingual (NITROQUICK) 0.3 mg SL tablet Dissolve 1 tablet under the tongue one time only for 1 dose. 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 6 mL 3 Active magnesium glycinate 100 mg magnesium capsuleIndications: Disturbance in sleep behavior Take 2 capsules by mouth daily at bedtime. 60 capsule 025 2025 Active semaglutide (OZEMPIC) 0.25 mg or 0.5 mg (2 mg/3 mL) penIndications:Type 2 diabetes mellitus with hypoglycemia without coma, without long-term current use of insulin ([facility]) For the first 4 weeks, inject 0.25 mg once weekly. After 4 weeks, increase to 0.5 mg weekly and stay at that dose. 1 each Active Blood-Glucose Sensor (DEXCOM G7 SENSOR) deviIndications:Typ e 2 diabetes mellitus with hypoglycemia without coma, without long-term current use of insulin ([facility]) Use to check glucose 4 times or more daily. Change sensor every 10 days. 9 each Active ergocalciferol 50,000 unit capsule (VITAMIN D2, DRISDOL)Indications :Vitamin D insufficiency Take 1 capsule by mouth two times a week. 24 capsule 025 2025 Active Active Problems Problem Noted Date Diagnosed Date No-show for appointment 10/04/2023 Obesity, Class III, BMI >= 40 09/24/2023 SVT (supraventricular tachycardia) 09/24/2023 Deep venous thrombosis 01/21/2023 Anxiety 12/23/2022 Assessment & Plan (12/23/2022 1:00 PM EST): Assessment: Patient presents extremely anxious and tearful stating she is out of her xanax and has a call out to her PCP and psychiatrist for a refill. Chronic insomnia 11/24/2022 Abnormal endometrial ultrasound 10/02/2022 Thickened endometrium 10/02/2022 Ovarian cyst, left 10/02/2022 Ovarian cyst, complex 09/14/2022 Overview (09/14/2022): 09/10/22 1.5 cm right f/u 8 to 12 wks History of cervical dysplasia 06/21/2022 Postmenopausal bleeding 06/21/2022 Glaucoma suspect of both eyes 06/11/2022 Dermatochalasis of both upper eyelids 06/11/2022 Conjunctivitis 06/11/2022 Dry eye syndrome of bilateral lacrimal glands Iron deficiency anemia 07/29/2018 Diarrhea, unspecified 09/24/2017 Overview (09/24/2017): Added automatically from request for surgery [id number] Vomiting of fecal matter with nausea 09/24/2017 Overview (09/24/2017): Added automatically from request for surgery [id number] Postoperative malabsorption 03/04/2017 Pneumonia 12/06/2016 Nausea and vomiting in adult 08/20/2016 Vitamin B12 deficiency (dietary) anemia 08/10/19 17 Rheumatoid arthritis of mult iple sites without rheumatoid factor 08/09/2016 Positive anti-CCP test 08/09/2016 Secondary osteoarthritis of multiple sites 08/05 Micropapillary carcinoma of thyroid (3 mm) 01/12 Assessment & Plan (12/23/2022 12:58 PM EST): Assessment: S/P resection GI bleeding 06/08/2010 Overview (12/18/2015): Blood tranfusions Fibromyalgia 09/08/2009 Type 2 diabetes mellitus wit hout complication, without long-term current use of insulin 04/17/2008 Assessment & Plan (12/23/2022 12:58 PM EST): Assessment: Stable on injectable medication Hemoglobin A1C (%) Date Value 06/16/2022 6.2 01/21/2022 6.3 03/17/2021 6.0 12/27/2020 6.2 08/13/2020 6.1 05/13/2020 6.4 10/03/2019 6.2 Hemoglobin A1C (POCT) (%) Date Value 11/30/2022 6.6 Flushing 04/20/2007 Chronic lymphocytic thyroiditis 06/17/2006 Dysmetabolic syndrome X 06/17/2006 Hx of DIABETES IN PREG-UNSPEC 06/17/2006 MALAISE AND FATIGUE NEC 06/17/2006 Class 2 severe obesity due t o excess calories with serious comorbidity and body mass index (BMI) of 38.0 to 38.9 in adult 06/17/2006 Assessment & Plan (12/23/2022 1:00 PM EST): Assessment: S/P gastric bypass Body mass index is 38.39 kg/m . TALIA (obstructive sleep apnea) Assessment & Plan (12/23/2022 12:57 PM EST): Assessment: Patient reports ill fitting mask, attempting to increase compliance Assessment & Plan (10/23/2020 10:44 AM EDT): Assessment: just started back on bipap Type 2 diabetes mellitus without retinopathy Esophageal reflux Overview (10/08/2017): s/p Nessa 2002 Haroon Blanca MD Assessment & Plan (12/23/2022 12:58 PM EST): Assessment: S/P gastric bypass and Nessa, Well controlled with PPI Assessment & Plan (10/23/2020 10:44 AM EDT): Assessment: treats successfully w/Protonix Anemia Resolved Problems Problem Noted Date Diagnosed Date Resolved Date Malignant tumor of thyroid gland 01/21/2023 01/22/20 23 01/22/2023 Generalized anxiety disorder 01/09/2023 01/21/2023 01/22/2023 Palpitations 10/07/2022 10/23/2022 Obesity, Class I, BMI 30-34.9 01/10/2018 10/23/2022 Morbid obesity 11/24/2016 10/23/2022 Morbid obesity due to excess calories 08/31/2016 12/01/2016 Overview (08/31/2016): Added automatically from request for surgery [id number] Hernia, paraesophageal 08/31/201612/01 Overview (08/31/2016): Added automatically from request for surgery [id number] Mitral and aortic valve regurgitation 09/08/2009 10/23/2022 Overview (10/08/2017): Aortic insufficiency EF 60% DR Zuniga -- judged to be non-surgical and mild Encounters Date Type Department Care Team Description 07/07/2024 Patient Msg Neurology [address] [place] [phone] Thaddeus Diggs MD MRI denial 07/04/2024 Patient Msg Neurology [address] [place] [address] Provider, Ccf from Dr Duenas office 07/04/2024 Telephone Neurology [address] [place] [address] Thaddeus Diggs MD Trailer Rental Clerk - Other 07/04/2024 [place] [address] Provider, Ccf Phone call fllow up 07/03/2024 [place] [address] Provider, Ccf MRI Screening Questionnaire Completion Required 06/06/2024 Orders Only Neurology [address] [place] [phone] Thaddeus Diggs MD Paresthesia (Primary Dx); Subjective weakness 05/30/2024 Results Follow-Up Endocrinology [address] [place] [address] Greg Nina, SCHOOL PSYCHOLOGIST ASSISTANT.PATIENT INFORMATION COORDINATOR 05/30/2024 Patient Msg Endocrinology [address] [place] [address] Valdez Suarez MD Endocrinology Scheduling 05/29/2024 3:03 PM EDT - 05/29/2024 11:59 PM EDT Hospital Encounter Radiology [address] [place] [address] Discharge Disposition: Home 05/29/2024 Radiology Radiology [address] [facility] [place] [phone] Bharti Torres, RT(R) Radiology XR 05/29/2024 Get Medical Advice Endocrinology [address] [place] [address] Vinicius Márquez, SCHOOL PSYCHOLOGIST ASSISTANT.PATIENT INFORMATION COORDINATOR Sugars 05/24/2024 Get Medical Advice Neurology [address] [place] [address] Thaddeus Diggs MD MRI cervical slime 05/22/2024 Telephone Endocrinology [address] [place] [address] Greg Nina, MARITZA.[facility] Insurance Authorization (semaglutide (OZEMPIC) 0.25 mg or 0.5 mg (2 mg/3 mL) pen [[facility]]) 05/18/2024 9:45 AM EDT [facility] Endocrinology [address] [place] [phone] Greg Nina APRN.PATIENT INFORMATION COORDINATOR Type 2 diabetes mellitus with hypoglycemia without coma, without long-term current use of insulin (HCC) (Primary Dx); Obesity, Class III, BMI 40-49.9 (morbid obesity) (HCC); Disturbance in sleep behavior; Depression, unspecified depression type 05/18/2024 Travel 05/16/2024 Get Medical Advice Endocrinology [address] [place] [address] Greg Nina, MARITZA.[facility] Ozempic from Last 3 Months Immunizations Immunization Administration Dates Next Due tetanus diphtheria pertussis (Tdap) vaccine, age 7+ yr (ADACEL, BOOSTRIX) 08/27/2020 Family History Medical History Relation Comments Heart Father Diabetes Maternal Grandfather Diabetes Maternal Grandmother Glaucoma Mother Thyroid Mother graves' s/p I 13 1 Thyroid Sister 3 goiter. None Sister 4 Garcia's palsy. Relation Status Comments Father Alive Maternal Grandfather Maternal Grandmother Mother Alive Sister 1 Alive Sister 2 Alive Sister 3 Sister 4 Social History Tobacco Use Types Packs/Day Years Used Date Smoking Tobacco: Never Smokeless Tobacco: Never Tobacco Cessation:Counseling Given: Not Answered Alcohol Use Standard Drinks/Week Comments Yes 0 (1 standard drink = 0.6 oz pur e alcohol) Social PHQ-2 Answer Date Recorded PHQ-2 score 2 01/08/2022 Area Deprivation Index Answer Date Rod rded National Score (1-100), lowe r number is lower risk 79 03/07/2024 State Score (1-10), lower number is lower risk 7 03/07/2024 Data from: https://www.neighborhoodatlas.medicine.[facility]/ . Last address used for calculation [address] 03/07/2024 Comments No Sex and Gender Information Value Date Recorded Sex Assigned at Not on file Legal Sex Female 9:47 AM EST Gender Identity Not on file Sexual Orientation Not on file Last Filed Vital Signs Vital Sign Reading Time Taken Comments Blood Pressure 118/81 10/25/2023 2:59 PM EDT Pulse 75 10/25/2023 2:59 PM EDT Temperature 36.5 C (97.7 F) 09/27/2023 11:28 AM EDT Respiratory Rate 16 06/02/2023 4:13 PM EDT Oxygen Saturation 97% 10/25/2023 2:59 PM EDT Inhaled Oxygen Concentration - - Weight 118.8 kg (262 lb) 05/18/2024 9:51 AM EDT Height 157.5 cm (5' 2 ) 09/27/2023 11:28 AM EDT Body Mass Index 47.92 09/27/2023 11:28 AM EDT Plan of Treatment Upcoming Encounters Date Type Department Care Team (Late st Contact Info) Description 08/30/2024 9:30 AM EDT [facility] Endocrinology [address] [place] [phone] Greg Nina, MARITZA.PATIENT INFORMATION COORDINATOR [address] [place] [address] diabetes follow up with [place] in 3 months virtually 11/20/2024 1:00 PM EDT [facility] Endocrinology [address] [place] [phone] Valdez Suarez MD [address] [place] [address] [address] [place], [place] [phone] follow up in 6 months Health Maintenance Due Date Last Done Comments Depression Screening 07/13/1991 HIV Screening 07/13/1991 Hepatitis B Vaccine (1 of 3 - 19+ 3-dose series) 1992 Pneumococcal Vaccine: 50+ (1 of 2 - PCV) 1992 CT Colonography 2018 Cologuard (FIT-DNA) 2018 Fecal Occult Blood 2018 Sigmoidoscopy 2018 Colonoscopy 10/13/2018 10/13/2017, 02/09, 11/02/2008 Colorectal Cancer Screening 10/13/2018 Annual PCP Team Chronic Dise ase Visit 09/17/2022 09/17/2021 Dilated Retinal Exam 06/12/2023 06/11/2022, 11/12/19 Diabetic Foot Exam 06/24/2023 06/23/2022 Shingrix Vaccine (1 of 2) 07/13/2023 Covid-19 Vaccine ( - 2023-2 5 season) 2023 Mammogram Screening 10/28/2023 10/27/2022 Influenza Vaccine (Season Ended) 2024 HbA1C 11/28/2024 05/29/2024, 03/11, 11/30/2022, Additional history exists LDL Cholesterol 05/29/2025 05/29/2024, 12/09, 02/11/2018 Urine Albumin:Creatinine Ratio 05/29/2025 05/29/2024 , 12/22/2022 Cervical Cancer Screening 06/12/20272022, 06/11/2022, 01/10/2018, Additional history exists DTaP,Tdap,Td Vaccine (2 - Td or Tdap) 08/27/2030 08/27/2020 Hepatitis C Screening Completed 12/27/2020 , 12/27/2020, 08/05/2016, Additional history exists Medical Devices Implanted Type Area Center Administrator Device Identifier Shelf Expiration Date Model / Serial / Lot Tube Diane 14fr Silicone Gastrostomy Balloon Bolus Feeding 3-5ml Sterile - [id number] Implanted:Qty: 1 on 11/24/2016 at [facility] Tube N/A: Abdomen [employer] 09/09/2019 [id number] / / [id number] Description:18 german DIANE ga strostomy feeding tube - [place] Procedures Procedure Name Priority Date/Time Associated Diagnosis Comments XR FOOT 2V AP/LAT RT 05/29/2024 3:37 PM EDT ALBUMIN/CREATININE RATIO, URINE Routine 05/29/2024 3:00 PM EDT Type 2 diabetes mellitus with hypoglycemia without coma, without long-term current use of insulin (HCC) LIPID PANEL, FASTING Routine 05/29/2024 2:55 PM EDT Type 2 diabetes mellitus with hypoglycemia without coma, without long-term current use of insulin (HCC) COMPREHENSIVE METABOLIC PANEL Routine 05/29/2024 2:55 PM EDT Type 2 diabetes mellitus with hypoglycemia without coma, without long-term current use of insulin (HCC) HEMOGLOBIN A1C Routine 05/29/2024 2:55 PM EDT Type 2 diabetes mellitus with hypoglycemia without coma, without long-term current use of insulin (HCC) VITAMIN D 25 HYDROXY Routine 05/29/2024 2:55 PM EDT Vitamin D insufficiency TSH BLD Routine 05/29/2024 2:55 PM EDT 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 JUS SCREENING W SURINDER Routine 10/27/2022 10:46 AM EDT Encounter for screening mammogram for malignant neoplasm of breast PAP TEST Routine 06/11/2022 12:41 PM EDT Encounter for gynecological examination with abnormal finding History of cervical dysplasia HEPATITIS C VIRUS (HCV) RNA, QUANTITATIVE PCR, PLASMA/SERUM Routine 12/27/2020 12:49 PM EST Rheumatoid arthritis of multiple sites without rheumatoid factor (HCC) Post-acute sequelae of COVID-19 (PASC) Arthralgia, unspecified joint History of rheumatoid arthritis Instability of right shoulder joint Right shoulder pain, unspecified chronicity COLONOSCOPY Routine 10/13/2017 8:01 AM EDT from Last 3 Months or Most Recently Relevant to Health Maintenance Results * XR FOOT 2V AP/LAT RT (05/29/2024 3:37 PM EDT) Anatomical Region Laterality Modality Foot Radiographic Vilma ging 05/29/2024 3:37 PM EDT Impressions 05/30/2024 10:06 AM EDT IMPRESSION: 1. Fifth metatarsal fracture Tack Cutter: SILVIA Transcribe Date/Time: May 30 2024 10:01A Dictated by : JONATHAN WADSWORTH MD This examination was interpreted and the report reviewed and electronically signed by: JONATHAN WADSWORTH MD on May 30 2024 10:04AM EST Narrative 05/30/2024 10:06 AM EDT * * *Final Report* * * DATE OF EXAM: May 29 2024 3:37PM [id number] - XR FOOT 2V AP/LAT RT / PROCEDURE REASON: pain * * * * Physician Interpretation * * * * Right foot radiographs HISTORY: Pain TECHNIQUE: 2 views of the right foot COMPARISON: 05/02/2008 FINDINGS: Oblique nondisplaced fracture at the distal diaphysis of the fifth metatarsal. No significant periosteal reaction. Metatarsophalangeal joints and toes are intact. Midfoot alignment is preserved. Dorsal talonavicular and navicular cuneiform osteophytes and at the tibiotalar joints. Subtalar joints are intact. Posterior calcaneal enthesophytes. Dorsal soft tissue swelling at the forefoot Procedure Note Provider, [facility] [place] - 05/30/2024 * * *Final Report* * * DATE OF EXAM: May 29 2024 3:37PM [id number] - XR FOOT 2V AP/LAT RT / PROCEDURE REASON: pain * * * * Physician Interpretation * * * * Right foot radiographs HISTORY: Pain TECHNIQUE: 2 views of the right foot COMPARISON: 05/02/2008 FINDINGS: Oblique nondisplaced fracture at the distal diaphysis of the fifth metatarsal. No significant periosteal reaction. Metatarsophalangeal joints and toes are intact. Midfoot alignment is preserved. Dorsal talonavicular and navicular cuneiform osteophytes and at the tibiotalar joints. Subtalar joints are intact. Posterior calcaneal enthesophytes. Dorsal soft tissue swelling at the forefoot IMPRESSION IMPRESSION: 1. Fifth metatarsal fracture [facility]ack [facility] Transcribe Date/Time: May 30 2024 10:01A Dictated by : JONATHAN WADSWORTH MD This examination was interpreted and the report reviewed and electronically signed by: JONATHAN WADSWORTH MD on May 30 2024 10:04AM EST [facility] Provider MIRIAM-PAMA Final Result * ALBUMIN/CREATININE RATIO, URINE (05/29/2024 3:00 PM EDT) Creatinine, Ur Random (UCRR) 208.7 20.0 - 300.0 mg/dL 05/30/2024 1:19 PM EDT [facility] Albumin, Urine Random 21.1 mg/L 05/30/2024 1:19 PM EDT [facility] Albumin/Creat Ratio 10 <30 mg/g 05/30/2024 1:19 PM EDT [facility] Comment: Adult Male and Female Nephrotic Criteria: <30 mg/g is considered normal to mildly increased 30-300 mg/g is considered moderately increased >300 mg/g is considered severely increased KDIGO. (2013). KDIGO 2012 Clinical Practice Guideline for the Evaluation and Management of Chronic Kidney Disease. Official Journal of the International Society of Nephrology, 3(1), 1-150. Urine URINE SPECIMEN / Unknown Non Blood / Unknown 05/29/2024 3:00 PM EDT 05/29/2024 3:00 PM EDT Greg Nina APRN.PATIENT INFORMATION COORDINATOR LABORATORY Final R esult [facility] [place] [address], * (ABNORMAL) VITAMIN D 25 HYDROXY (05/29/2024 2:55 PM EDT) Vitamin D 25 Hydroxy 25.8(L) 31.0 - 80.0 ng/mL 05/30/2024 12:38 PM EDT [facility] Comment: Classification of 25 [place] Vitamin D status: Deficiency/Insufficiency: < or = 30 ng/ml. Sufficiency/Optimal Levels: 31-80 ng/mL Toxicity: > 100 ng/mL. Test performed by chemiluminescent immunoassay. Blood BLOOD SPECIMEN / Unknown Venipuncture / Unknown 05/29/2024 2:55 PM EDT 05/29/2024 2:55 PM EDT Narrative [facility] - 05/30/2024 12:38 PM EDT The reference range interval was based on an analysis of samples from healthy adults and may not pertain to children from 0-18 years old. us Valdez Suarez MD LABORATORY Final Resu lt Performing Organization Address City/[facility]/ZIP Co de Phone Number [facility] [address] [id number], [place] * THYROID STIMULATING HORMONE (05/29/2024 2:55 PM EDT) TSH 1.070 0.270 - 4.200 mIU/L 05/30/2024 4:48 AM EDT [facility] Comment: If the patient is , TSH reference range varies by gestational period: First Trimester (weeks 9-12): 0.180-2.990 mIU/L Second Trimester: 0.110-3.980 mIU/L Third Trimester: 0.480-4.710 mIU/L Rohit Mares et al. A Practical Approach for the Verifications and Determination of Site- and Trimester-Specific Reference Intervals for Thyroid Function tests in . Thyroid, 2019:29:3:412-420. Hany Torre et al. 2017 Guidelines of the [place] [employer] for the Diagnosis and Management of Thyroid Disease during and the . Thyroid, 2017:27:3:315-389. Blood BLOOD SPECIMEN / Unknown Venipuncture / Unknown 05/29/2024 2:55 PM EDT 05/29/2024 2:55 PM EDT us Valdez Suarez MD LABORATORY Final Resu lt Performing Organization Address City/[facility]/ZIP Co de Phone Number [facility] [address] [place] [id number], [place] * LIPID PANEL, FASTING (05/29/2024 2:55 PM EDT) Cholesterol, Total 132 <200 mg/dL 05/30/2024 4:41 AM [facility] Comment: <200 mg/dL, Desirable 200-239 mg/dL, Borderline high >239 mg/dL, High Triglyceride 139 <150 mg/dL 05/30/2024 4:41 AM [facility] Comment: <150 mg/dL, Normal 150-199 mg/dL, Borderline high 200-499 mg/dL, High >499 mg/dL, Very high HDL Cholesterol 41 >39 mg/dL 4:41 AM [facility] Comment: 40-59 mg/dL, Acceptable >59 mg/dL, High: Negative risk factor for coronary heart disease <40 mg/dL, Low: Positive risk factor for coronary heart disease Non HDL Cholesterol 91 <130 mg/dL 05/30/2024 4:41 AM [facility] Comment: <130 mg/dL, Optimal 130-159 mg/dL, Near optimal/above optimal 160-189 mg/dL, Borderline high 190-219 mg/dL, High >219 mg/dL, Very high Secondary prevention optimal non HDL Cholesterol levels are recommended to be <100 mg/dL Fasting Time 12 hrs 05/30/2024 4:41 AM [facility] VLDL Cholesterol 28 <30 mg/dL 05/31/19 4:41 AM [facility] TC:HDL Ratio 3.22 <5.10 05/30/2024 4:41 AM [facility] LDL Cholesterol, Calculated 63 <100 mg/dL 05/30/2024 4:41 AM [facility] Comment: <100 mg/dL, Optimal 100-129 mg/dL, Near optimal/above optimal 130-159 mg/dL, Borderline high 160-189 mg/dL, High >189 mg/dL, Very high Secondary prevention optimal LDL Cholesterol levels are recommended to be < 70 mg/dL LDL:HDL Ratio 1.54 <2.54 05/30/2024 4:41 AM [facility] Comment: Reference: 1. National Cholesterol Education Program ATP III Guideline At-A-Glance Quick Desk Reference: National Heart, Lung, and Blood [place]. National Institutes of Health. 2001: NIH Publication No. 01-3305. 2. An International Atherosclerosis Society position paper: global recommendations for the management of dyslipidemia: executive summary, Atherosclerosis. 2014: 232(2):410-413. Blood BLOOD SPECIMEN / Unknown Venipuncture / Unknown 05/29/2024 2:55 PM EDT 05/29/2024 2:55 PM EDT Greg Nina APRN.[facility] Final R esult Performing Organization Address City/[facility]/ZIP Co de Phone Number [facility] [address] [place] [address], [place] [facility] [address] [place] [address], [place] * (ABNORMAL) HEMOGLOBIN A1C (05/29/2024 2:55 PM EDT) Hemoglobin A1C 6.5(H) 4.3 - 5.6 % 05/30/2024 6:18 AM EDT [facility] Comment:[place] Diabetes As sociation guidelines indicate that patients with HgbA1c in the range 5.7-6.4% are at increased risk for development of diabetes, and intervention by lifestyle modification may be beneficial. HgbA1c greater or equal to 6.5% is considered diagnostic of diabetes. Estimated Average Glucose 140 mg/dL 05/30/2024 6:18 AM EDT [facility] Comment:eAG: (Estimated aver age glucose) is a calculated value from HgbA1c and is healthcare sales representative of the average blood glucose level in the last 2-3 month period. Blood BLOOD SPECIMEN / Unknown Venipuncture / Unknown 05/29/2024 2:55 PM EDT 05/29/2024 2:55 PM EDT Greg Nina APRN.PATIENT INFORMATION COORDINATOR LABORATORY Final R esult Performing Organization Address City/[facility]/ZIP Co de Phone Number [facility] [address] [place] [id number], [place] * (ABNORMAL) COMPREHENSIVE METABOLIC PANEL (05/29/2024 2:55 PM EDT) Protein, Total 6.4 6.3 - 8.0 g/dL 05/30/2024 4:41 AM [facility] Albumin 3.6(L) 3.9 - 4.9 g/dL 05/30/2024 4:41 AM [facility] Calcium, Total 8.4(L) 8.5 - 10.2 mg/dL 05/30/2024 4:41 AM [facility] Bilirubin, Total 0.2 0.2 - 1.3 mg/dL 05/30/2024 4:41 AM [facility] Alkaline Phosphatase 248(H) 34 - 123 U/L 05/30/2024 4:41 AM [facility] AST 38(H) 13 - 35 U/L 05/30/2024 4:41 AM [facility] ALT 43(H) 7 - 38 U/L 05/30/2024 4:41 AM [facility] Glucose 280(H) 74 - 99 mg/dL 05/30/2024 4:41 AM [facility] Comment: The [place] Diabetes Association (ADA) provides guidance for cutoff [...] Standards of Medical Care in Diabetes 2016, [place] Diabetes Association. Diabetes Care. 2016.39(Suppl 1). BUN 6(L) 7 - 21 mg/dL 05/30/2024 4:41 AM [facility] Creatinine 0.92 0.58 - 0.96 mg/dL 05/30/2024 4:41 AM [facility] Sodium 138 136 - 144 mmol/L 05/30/2024 4:41 AM [facility] Potassium 4.1 3.7 - 5.1 mmol/L 05/30/2024 4:41 AM EDT [facility] Chloride 107 98 - 107 mmol/L 05/30/2024 4:41 AM EDT [facility] CO2 19(L) 22 - 30 mmol/L 05/30/2024 4:41 AM EDT [facility] Anion Gap 12 8 - 15 mmol/L 05/30/2024 4:41 AM EDT [facility] Estimated Glomerular Filtration Rate 76 >=60 mL/min/1.7 3m 05/30/2024 4:41 AM EDT [facility] Comment:Estimated Glomerular Filtration Rate (eGFR) is calculated using the 2020 CKD-EPI creatinine equation. This equation utilizes serum creatinine, sex, and age as parameters. The creatinine assay has traceable calibration to isotope dilution- mass spectrometry. Refer to KDIGO guidelines for clinical interpretation. In patients with unstable renal function, e.g. those with acute kidney injury, the eGFR may not accurately reflect actual GFR. Blood BLOOD SPECIMEN / Unknown Venipuncture / Unknown 05/29/2024 2:55 PM EDT 05/29/2024 2:55 PM EDT us Greg Nina APRN.PATIENT INFORMATION COORDINATOR LABORATORY Final R esult [facility] [address] [address], [place] * JUS SCREENING W SURINDER (10/27/2022 10:46 AM EDT) Anatomical Region Laterality Modality Breast Other 10/27/2022 10:4 6 AM EDT Impressions 10/28/2022 7:43 AM EDT IMPRESSION: NEGATIVE There is no mammographic evidence of malignancy. A 1 year screening mammogram is recommended. The exam was reviewed by a staff physician. Anne Hall D.O. rs,karen/caron:10/27/2022 11:12:38 Coater Associate(s): RT Kristin(R)(M), [facility] letter sent: Normal over 40 Mammogram BI-RADS: [...] Health, Family Medicine, and Medical/Surgical Oncology, the [facility] has carefully reviewed the data and reached [...] their providers when to stop screening mammograms. Tack Cutter: Caron Transcribe Date/Time: Oct 27 2022 10:26A Dictated by: JING HALL DO This examination was interpreted and the report reviewed and electronically signed by: ANNE BOB MD on Oct 27 2022 11:12AM EST Narrative 10/28/2022 7:43 AM EDT * * *Final Report* * * DATE OF EXAM: Oct 27 2022 10:46AM LNW 0582 - JUS SCREENING W SURINDER / PROCEDURE REASON: Encounter for screening mammogram for malignant neoplasm of breast * * * * Physician Interpretation * * * * RESULT: #[id number] - JUS SCREENING W SURINDER BILATERAL FIRST [...] other findings are seen in either breast. Procedure Note Provider, [facility] [place] - 10/28/2022 * * *Final Report* * * DATE OF EXAM: Oct 27 2022 10:46AM LNW 0582 - JUS SCREENING W SURINDER / PROCEDURE REASON: Encounter for screening mammogram for malignant neoplasm of breast * * * * Physician Interpretation * * * * RESULT: #[id number] - JUS SCREENING W SURINDER BILATERAL FIRST [...] other findings are seen in either breast. IMPRESSION IMPRESSION: NEGATIVE There is no mammographic evidence of malignancy. A 1 year screening mammogram is recommended. The exam was reviewed by a staff physician. Anne pack,karen/caron:10/27/2022 11:12:38 Coater Associate(s): DALI Foster)(M), [facility] letter sent: Normal over 40 Mammogram BI-RADS: [...] Health, Family Medicine, and Medical/Surgical Oncology, the [facility] has carefully reviewed the data and reached [...] their providers when to stop screening mammograms. Tack Cutter: Caron Transcribe Date/Time: Oct 27 2022 10:26A Dictated by: JING HALL DO This examination was interpreted and the report reviewed and electronically signed by: ANNE BOB MD on Oct 27 2022 11:12AM EST us Eleanor Chanel DO JUS-PAMA Final Res ult * PAP TEST (06/11/2022 12:41 PM EDT) Case Report Gynecologic Cytology Report Case: [id number] Authorizing Provider: Eleanor Chanel DO Collected: 06/11/2022 12:41 PM Ordering Location: CB/Gynecology Received: 06/12/2022 05:13 AM First Screen: Chiara Salguero CT, ASCP Rescreen: LEO Ng, ASCP Specimen: Pap Test, ThinPrep, Cervix 06/18/2022 12:27 PM EDT [facility] FINAL DIAGNOSIS A - Cervix Satisfactory for interpretation Negative for Intraepithelial lesion or malignancy. 06/18/2022 12:27 PM EDT [facility] at 1227 EDT LMP 04/06/2022 06/18/2022 12:27 PM EDT [facility] Pap Disclaimer The Pap Smear is a screening test for cervical cancer. False negative results occur with all screening tests, emphasizing the need for rescreening at recommended intervals, and clinical correlation. 06/18/2022 12:27 PM EDT [facility] PAP Unit Manager Comment This specimen has been analyzed by the ThinPrep Imaging System, an automated imaging and review system, which assists the laboratory in evaluating cells on ThinPrep Pap tests. Following automated imaging, selected rojas from every slide are reviewed by a foot and ankle surgeon. 06/18/2022 12:27 PM EDT [facility] Performing Lab Technical component, foot and ankle surgeon screening performed at [facility], [address] [id number] CLIA# [id number] Diagnostic interpretation performed at [facility], [address] [place], [place] [id number] CLIA# [id number] Makeup Sales Consultant: Moshe Craft M.D. 06/18/2022 12:27 PM EDT [facility] Clinical History Routine Exam 2022 12:27 PM EDT [facility] Comment:h/o CIN1 HPV Reflex Auto HPV 06/18/2022 12:27 PM EDT [facility] Cytology Interpretation Negative for Intraepithelial lesion or malignancy. 06/18/2022 12:27 PM EDT [facility] at 1227 EDT Sterile Fluid/Body Fluid CERVICAL / Unknown Non Blood / Unknown 06/11/2022 12:41 PM EDT 06/12/2022 5:13 AM EDT us Eleanor Chanel DO CYTOLOGY Final Res ult [facility] [address] [facility] [address] [place] [address], * HCV QUANT RNA BY PCR (12/27/2020 12:49 PM EST) HCV RNA by PCR HCV RNA not detected by PCR. IU/mL 12/27/2020 8:00 PM EST [facility] Comment: Reference Range: Negative for HCV RNA The Linear Range of this assay is 15 IU/mL to 100,000,000 IU/mL. Blood OTHER / Unknown 12/27/2020 1 2:49 PM EST 12/27/2020 12:51 PM EST Lorenzo Perry DO LABORATORY Final Resul t [facility] [address] [facility]. [place] [id number] [address] [address] * COLONOSCOPY (10/13/2017 8:01 AM EDT) Fire Management Technician [facility] Gastrointestinal Endoscopy Patient Name: Esme Reyes Procedure Date: 10/13/2017 8:01 AM Account Number: Date of : 1975 Admit Type: Outpatient Age: 42 Room: [facility] Gender: Female Note Status: Finalized Attending MD: Alana Pardo MD, PhD Sedation Initiated: MAC Procedure: Colonoscopy Indications: Chronic diarrhea Providers: Alana Pardo MD, PhD Patient Profile: This is a 42 year old female. Refer to note in patient chart for documentation of history and physical. Last Colonoscopy: Referring Physician: Medicines: Monitored Anesthesia Care Complications: No immediate complications. Requesting Provider: Procedure: Pre-Anesthesia Assessment: - Prior to the procedure, a History and Physical was performed, and patient medications and allergies were reviewed. The patient's tolerance of previous anesthesia was also reviewed. The risks and benefits of the procedure and the sedation options and risks were discussed with the patient. All questions were answered, and informed consent was obtained. Prior Anticoagulants: The patient has taken no previous anticoagulant or antiplatelet agents. ASA Grade Assessment: III - A patient with severe systemic disease. After reviewing the risks and benefits, the patient was deemed in satisfactory condition to undergo the procedure. After I obtained informed consent, the scope was passed under direct vision. Throughout the procedure, the patient's blood pressure, pulse, and oxygen saturations were monitored continuously. The 8358 COLON was introduced through the anus and advanced to the terminal ileum. The colonoscopy was performed without difficulty. The patient tolerated the procedure well. The quality of the bowel preparation was good. The terminal ileum, ileocecal valve, appendiceal orifice, and rectum were photographed. Scope Withdrawal Time: 0 hours 18 minutes 57 seconds Total Procedure Duration: 0 hours 22 minutes 2 seconds Findings: Hemorrhoids were found on perianal exam. The terminal ileum appeared normal. Biopsies were taken with a cold forceps for histology. Estimated blood loss was minimal. One 3 mm nodule was found at the ileocecal valve. Biopsies were taken with a cold forceps for histology. Estimated blood loss was minimal. A few medium-mouthed diverticula were found in the sigmoid colon. The colon (entire examined portion) appeared normal. Biopsies for histology were taken with a cold forceps from the entire colon for evaluation of microscopic colitis. Estimated blood loss was minimal. A 3 mm polyp was found in the rectum. The polyp was sessile. The polyp was removed with a cold biopsy forceps. Resection and retrieval were complete. Estimated blood loss was minimal. Impression: - Hemorrhoids found on perianal exam. - The examined portion of the ileum was normal. Biopsied. - Nodule at the ileocecal valve. Biopsied. - Diverticulosis in the sigmoid colon. - The entire examined colon is normal. Biopsied. - One 3 mm polyp in the rectum, removed with a cold biopsy forceps. Resected and retrieved. Recommendation: - Discharge patient to home (ambulatory). - Patient has a contact number available for emergencies. The signs and symptoms of potential delayed complications were discussed with the patient. Return to normal activities tomorrow. Written discharge instructions were provided to the patient. - Resume previous diet. - Continue present medications. - Await pathology results. - Telephone Dr. Pardo in one week for pathology results [phone] if you have not received letter, call or my chart notice, or if you have any questions. - Repeat colonoscopy in 5 years for surveillance. - Resume anticoagulant at prior dose. Refer to managing physician for further adjustment of therapy. Attending Participation: I personally performed the entire procedure. Scope In: 8:47:49 AM Scope Out: 9:09:[address] Alana Pardo MD, PhD Alana Pardo MD, PhD 10/13/2017 9:13:40 AM This report has been signed electronically by Alana Pardo MD, PhD Number of Addenda: 0 Note Initiated On: 10/13/2017 8:01 AM Estimated Blood Loss: Estimated blood loss was minimal. [facility] 10/13/2017 8:01 AM EDT us Alana Pardo MD, PhD [facility] Final Result [facility] [address] [place] [address] [facility] from Last 3 Months or Most Recently Relevant to Health Maintenance Insurance * Guarantor: Esme Reyes Account Type Relation to Patient Date of Phone Billing Address Personal/Family Self 1975 [address] [place] [address] [facility] * Guarantor: Esme Reyes Account Type Relation to Patient Date of Phone Billing Address Vision Self 1975 [address] [place] [address] * Guarantor: Esme Reyes Account Type Relation to Patient Date of Phone Billing Address Self Pay Self 1975 [address] [place] [address] Advance Directives Documents on File Type Date Recorded Patient Field Investigator Expl anation Advance Directive(s) 11/05/2016 3:51 PM Care Teams Senior Technical Trainer Relationship Specialty Start Date End Date Farhat Cabezas MD PCP - General Family Medicine 01/13/11 Farhat Cabezas MD Referring Family Medicine 01/08/22
--- OUTSIDE RECORDS SUMMARY | 2024-07-20 16:28 | XMS_ITS | Encounter Summary ---
Demographics Address [address] [facility] [place] [address] Home Phone Mobile Phone Email Address Preferred Language ENG Marital Status Single Caodaism Affiliation Unknown Race White Ethnic Group Not or Lati no Author Organization [facility] Address [address] [place] [address] Care Team Providers Care Court Usher Name Role Phone Farhat Cabezas MD Primary Care Provider [phone] Farhat Cabezas MD Unavailable [phone] Source Comments In the event this information is protected by the Federal Confidentiality of Alcohol and Drug AbusePatient Records regulations: The Federal rules restrict any use of the information to criminally investigate or prosecute any alcohol or drug abuse patient.[facility] Encounter Details Date Type Department Care Team (Late st Contact Info) Description 02/04/2021 Get Medical Advice Rheumatology [address] [address] Lorenzo Perry DO [address] [place] [id number] Medication / Pain issues Social History Tobacco Use Types Packs/Day Years [...] N ot on file 01/16/2020 Data from: https://www.neighborhoodatlas.medicine.[facility].edu/. Last address used for calculation Not on [...] have Coronavirus / COVID-19? No / Unsure 01/07/2021 9:15 AM EST documented as of this encounter Functional Status [...] Contact Info) Description 08/30/2024 9:30 AM EDT [facility] [address] [place] [phone] Greg Nina APRN.SHOE PULLER [address] [place], [place] [phone] diabetes follow up with me in 3 months virtually 11/20/2024 1:00 PM EDT [facility] [address] [place] [address] Valdez Suarez MD [address] [place] [address] [address] [place], [place] [phone] follow up in 6 months documented as of this encounter Visit Diagnoses Not on filedocumented in this encounter Care Teams Court Usher Relationship Specialty Start Date End Date Farhat Cabezas MD PCP - General Family Medicine 01/13/11 Farhat Cabezas MD Referring Family Medicine 01/08/22 documented as of this encounter
--- OUTSIDE RECORDS SUMMARY | 2024-07-20 16:28 | XMS_ITS | Encounter Summary ---
Demographics Address [address] [facility] [place] [address] Home Phone Mobile Phone Email Address Preferred Language ENG Marital Status Single Gnosticist Affiliation Unknown Race White Ethnic Group Not or Lati no Author Organization [facility] Address [address] [place] [address] Care Team Providers Care Cryptographer Name Role Phone Farhat Cabezas MD Primary Care Provider [phone] Farhat Cabezas MD Unavailable [phone] Source Comments In the event this information is protected by the Federal Confidentiality of Alcohol and Drug AbusePatient Records regulations: The Federal rules restrict any use of the information to criminally investigate or prosecute any alcohol or drug abuse patient.[facility] Encounter Details Date Type Department Care Team (Late st Contact Info) Description 10/04/2017 Patient Msg General Surgery [address] [place] [address] Provider, [facility] EGD/Colonoscopy Prep Instructions for 10/13/17 Social History Tobacco Use Types Packs/Day Years [...] Contact Info) Description 08/30/2024 9:30 AM EDT [facility] [address] [place] [phone] Greg Nina APRN.COMPUTER SYSTEM SPECIALIST [address] [place] [address] diabetes follow up with me in 3 months virtually 11/20/2024 1:00 PM EDT [facility] [address] [place] [address] Valdez Suarez MD [address] [place] [address] [address] [place], [place] [phone] follow up in 6 months documented as of this encounter Visit Diagnoses Not on filedocumented in this encounter Care Teams Cryptographer Relationship Specialty Start Date End Date Farhat Cabezas MD PCP - General Family Medicine 01/13/11 Farhat Cabezas MD Referring Family Medicine 01/08/22 documented as of this encounter
--- OUTSIDE RECORDS SUMMARY | 2024-07-20 16:28 | XMS_ITS | Encounter Summary ---
Demographics Address [address] [place] [address] Home Phone Mobile Phone Email Address Preferred Language ENG Marital Status Single Zoroastrian Affiliation Unknown Race White Ethnic Group Not or Lati no Author Organization [facility] Address [address] [place] [address] Care Team Providers Care Bad Cloth Checker Name Role Phone Farhat Cabezas MD Primary Care Provider [phone] Farhat Cabezas MD Unavailable [phone] Source Comments In the event this information is protected by the Federal Confidentiality of Alcohol and Drug AbusePatient Records regulations: The Federal rules restrict any use of the information to criminally investigate or prosecute any alcohol or drug abuse patient.[facility] Encounter Details Date Type Department Care Team (Late st Contact Info) Description 11/14/2020 Get Medical Advice Neurology [address] [place] [address] Jaelyn Rangel MD NO FORWARDING ADDRESS RE: Visit Follow Up Question Social History Tobacco Use Types Packs/Day [...] N ot on file 01/16/2020 Data from: https://www.neighborhoodatlas.[facility]/. Last address used for calculation Not [...] have Coronavirus / COVID-19? No / Unsure 11/15/2020 11:01 AM EDT documented as of this encounter [...] Contact Info) Description 08/30/2024 9:30 AM EDT [facility] [address] [place] [address] Greg Nina APRN.WATER TRUCK DRIVER [address] [place] [address] diabetes follow up with me in 3 months virtually 11/20/2024 1:00 PM EDT [facility] [address] [place] [phone] Valdez Suarez MD [address] [place] [address] [address] [place], [place] [phone] follow up in 6 months documented as of this encounter Visit Diagnoses Not on filedocumented in this encounter Care Teams Bad Cloth Checker Relationship Specialty Start Date End Date Farhat Cabezas MD PCP - General Family Medicine 01/13/11 Farhat Cabezas MD Referring Family Medicine 01/08/22 documented as of this encounter
--- OUTSIDE RECORDS SUMMARY | 2024-07-20 16:28 | XMS_ITS | Encounter Summary ---
Demographics Address [address] [place] [address] Home Phone Mobile Phone Email Address faisal Preferred Language ENG Marital Status Single Nondenominational Affiliation Unknown Race White Ethnic Group Not or Lati no Author Organization [facility] Address [address] [place] [address] Care Team Providers Care Wellness Spa Manager Name Role Phone Farhat Cabezas MD Primary Care Provider [phone] Farhat Cabezas MD Unavailable [phone] Source Comments In the event this information is protected by the Federal Confidentiality of Alcohol and Drug AbusePatient Records regulations: The Federal rules restrict any use of the information to criminally investigate or prosecute any alcohol or drug abuse patient.[facility] Reason for Visit * Reason Comments Radiology XR Encounter Details Date Type Department Care Team (Late st Contact Info) Description 12/27/2020 Radiology Radiology [address] [place] [address] Altagracia Marinelli, RT(R) Radiology XR Social History Tobacco Use [...] N ot on file 01/16/2020 Data from: https://www.neighborhoodatlas.[facility]/. Last address used for calculation Not [...] have Coronavirus / COVID-19? No / Unsure 12/27/2020 8:43 AM EST documented as of this encounter Functional Status * Are you deaf or do you have serious difficulty hearing? Answer Date of Assessment Author No 12/14/2016 12:43 PM EST Mona CookRn) (Hist), RN * Are you blind or do you have serious difficulty seeing, even when wearing glasses? Answer Date of Assessment Author No 12/14/2016 12:43 PM Mona DuboseRn) (Hist), RN * Do you have serious difficulty walking or climbing stairs? Answer Date of Assessment Author No 12/14/2016 12:43 PM EST Mona CookRn) (Hist), RN * Do you have difficulty dressing or bathing? Answer Date of Assessment Author No 12/14/2016 12:43 PM EST Mona CookRn) (Hist), RN * Because of a physical, [...] documented in this encounter Progress Notes * Altagraica Marinelli RT(R) - 12/27/2020 1:32 PM EST Radiology Service Progress Note PATIENT NAME: Esme Reyes DATE OF SERVICE: December 27, 2020 TIME: 1:32 PM PATIENT IDENTITY VERIFICATION COMPLETED USING TWO [...] DEPARTMENT: General X-ray: Exam(s) Completed: Spine X-Ray(s): Thoracic and Lumbar AP / LAT / L5-S1 Pelvis X-Ray: Pelvis with Hip Right and sacroiliac joints Lower Extremity X-Ray(s): Knee, AP / Lat / Tunne / Merchant Bilateral and Wt. Bearing and Foot, Bilateral and Wt. Bearing Upper Extremity X-Ray(s): Hand, bilateral PERIPHERAL IV DATA: Not applicable SIGNED BY: RT Eduard(R) December 27, 2020 1:32 PM documented in this encounter Plan of Treatment Upcoming Encounters Date Type Department Care Team (Late st Contact Info) Description 08/30/2024 9:30 AM EDT [facility] Endocrinology [address] [place] [phone] Greg Nina APRN.ACCOUNT RECEIVABLE ASSOCIATE [address] [place] [address] diabetes follow up with me in 3 months virtually 11/20/2024 1:00 PM EDT [facility] Endocrinology [address] [place] [phone] Valdez Suarez MD [address] [place] [address] [address] [place], [place] [phone] follow up in 6 months documented as of this encounter Visit Diagnoses Not on filedocumented in this encounter Care Teams Wellness Spa Manager Relationship Specialty Start Date End Date Farhat Cabezas MD PCP - General Family Medicine 01/13/11 Farhat Cabezas MD Referring Family Medicine 01/08/22 documented as of this encounter
--- OUTSIDE RECORDS SUMMARY | 2024-07-20 16:28 | XMS_ITS | Encounter Summary ---
Demographics Address [address] [place] [address] Home Phone Mobile Phone Email Address Preferred Language ENG Marital Status Single Adventism Affiliation Unknown Race White Ethnic Group Not or Lati no Author Organization [facility] Address [address] [place] [address] Care Team Providers Care Medical Chief Technician Name Role Phone Farhat Cabezas MD Primary Care Provider [phone] Farhat Cabezas MD Unavailable [phone] Source Comments In the event this information is protected by the Federal Confidentiality of Alcohol and Drug AbusePatient Records regulations: The Federal rules restrict any use of the information to criminally investigate or prosecute any alcohol or drug abuse patient.[facility] Reason for Referral * MRI/CT (Routine) - Closed Specialty Diagnoses / Procedures Referred By Kalina burciaga Referred To Contact MR IMAGING Diagnoses Chronic right shoulder pain Procedures MRI SHOULDER WO IVCON RT MRI, JOINT UPPER EXTREM Lorenzo Perry DO Phone: tel: fax: [place] [id number] Referral ID Status Reason Start Date Expiration Date Visits Requested Visits Authorized [id number] Closed Auto-Generated Referral Patient Cleared Patient agrees to sign AFR (INN Commercial or OON MA) 01/07/2021 02/07/2021 1 1 Encounter Details Date Type Department Care Team (Late st Contact Info) Description 12/27/2020 Get Medical Advice Rheumatology [address] [phone] Lorenzo Perry DO [address] [place] [address] MRI Social History Tobacco Use Types Packs/Day Years [...] ot on file 01/16/2020 Data from: https://www.neighborhoodatlas.medicine.[facility].edu/. Last address used for calculation Not on [...] Author No 12/14/2016 12:43 PM EST Mona Cook (Rn) (Hist), RN * Are you blind or do you have serious difficulty seeing, even when wearing glasses? Answer Date of Assessment Author No 12/14/2016 12:43 PM EST Mona Cook (Rn) (Hist), RN * Do you have [...] Author No 12/14/2016 12:43 PM EST Mona Cook (Rn) (Hist), RN documented as of this encounter Mental Status * Because of a physical, mental, or emotional condition, do you have serious difficulty concentrating, remembering, or making decisions? Answer Entry Date Author No 12/14/2016 12:43 PM EST Mona Cook (Rn) (Hist), RN documented in this encounter Plan of Treatment Upcoming Encounters Date Type Department Care Team (Late st Contact Info) Description 08/30/2024 9:30 AM EDT [facility] Endocrinology [address] [place] [phone] Greg Nina APRN.[facility] [address] [place], [place] [phone] diabetes follow up with me in 3 months virtually 11/20/2024 1:00 PM EDT [facility] Endocrinology [address] [place] [phone] Valdez Suarez MD [address] [place] [address] [address] [place], [place] [phone] follow up in 6 months documented as of this encounter Results * MRI SHOULDER WO IVCON RT (01/08/2021 1:30 PM EST) Anatomical Region Laterality Modality Shoulder Magnetic Resonan ce 01/08/2021 1:30 PM EST Impressions 01/08/2021 3:06 PM EST IMPRESSION: Very small near full-thickness tear of the supraspinatus tendon at the anterior leading edge. Background rotator cuff tendinosis. Artificial Intelligence Specialist: PSCB Transcribe Date/Time: Jan 08 2021 1:46P Dictated by : GERARDO VALLEJO MD This examination was interpreted and the report reviewed and electronically signed by: GERARDO VALLEJO MD on Jan 08 2021 3:04PM EST Narrative 01/08/2021 3:06 PM EST * * *Final Report* * * DATE OF EXAM: Jan 08 2021 1:30PM [facility] 0240 - MRI SHOULDER WO IVCON RT / PROCEDURE REASON: multiple diagnoses * * * * Physician Interpretation * * * * EXAMINATION: MRI SHOULDER WO IVCON RT HISTORY: Chronic right shoulder pain right shoulder pain, suspected tear TECHNIQUE: Routine non-contrast MRI of the shoulder. MQ: MRS_1A COMPARISON: None RESULT: TENDONS: Rotator cuff tendons: -Supraspinatus: Near full-thickness tear involving the anterior portion of the tendon which is very small involving only the anterior leading edge, approximately a fifth of the tendon, with background moderate tendinosis. -Infraspinatus: Intact with mild tendinosis -Subscapularis: Intact with mild tendinosis -Teres Minor: Intact tendon Biceps (Long head) Tendon: Intact , with normal course MUSCLES: Rotator cuff muscles: -Supraspinatus: Preserved bulk and no fatty changes. -Infraspinatus: Preserved bulk and no fatty changes. -Subscapularis: Preserved bulk and no fatty changes. -Teres Minor: Preserved bulk and no fatty changes. Other muscles: Preserved signal and bulk in the deltoid. JOINTS: Glenohumeral Joint: -Labrum: Limited assessment of the labrum without overt tear. -Cartilage: Normal -Joint Fluid: No effusion . No synovitis. Acromioclavicular Joint: Mild hypertrophic degenerative changes BONES AND MARROW: No evidence of fracture or suspicious bone marrow replacing process . Prominent vessels in the proximal humeral shaft. OTHER: Subdeltoid/Subacromial Bursa: Mild to moderate bursal distention relating to rotator cuff tearing, with associated distention of the subcoracoid bursa Other: No other significant findings. Localizer images: Unremarkable. Procedure Note Provider, [facility] [place] - 01/08/2021 * * *Final Report* * * DATE OF EXAM: Jan 08 2021 1:30PM [facility] 0240 - MRI SHOULDER WO IVCON RT / PROCEDURE REASON: multiple diagnoses * * * * Physician Interpretation * * * * EXAMINATION: MRI SHOULDER WO IVCON RT HISTORY: Chronic right shoulder pain right shoulder pain, suspectedtear TECHNIQUE: Routine non-contrast MRI of the shoulder. MQ: MRS_1A COMPARISON: None RESULT: TENDONS: Rotator cuff tendons: -Supraspinatus: Near full-thickness tear involving the anterior portion of the tendon which is very small involving only the anterior leading edge, approximately a fifth of the tendon, with background moderate tendinosis. -Infraspinatus: Intact with mild tendinosis -Subscapularis: Intact with mild tendinosis -Teres Minor: Intact tendon Biceps (Long head) Tendon: Intact , with normal course MUSCLES: Rotator cuff muscles: -Supraspinatus: Preserved bulk and no fatty changes. -Infraspinatus: Preserved bulk and no fatty changes. -Subscapularis: Preserved bulk and no fatty changes. -Teres Minor: Preserved bulk and no fatty changes. Other muscles: Preserved signal and bulk in the deltoid. JOINTS: Glenohumeral Joint: -Labrum: Limited assessment of the labrum without overt tear. -Cartilage: Normal -Joint Fluid: No effusion . No synovitis. Acromioclavicular Joint: Mild hypertrophic degenerative changes BONES AND MARROW: No evidence of fracture or suspicious bone marrow replacing process . Prominent vessels in the proximal humeral shaft. OTHER: Subdeltoid/Subacromial Bursa: Mild to moderate bursal distention relating to rotator cuff tearing, with associated distention of the subcoracoid bursa Other: No other significant findings. Localizer images: Unremarkable. IMPRESSION IMPRESSION: Very small near full-thickness tear of the supraspinatus tendon at the anterior leading edge. Background rotator cuff tendinosis. Artificial Intelligence Specialist: SILVIA Transcribe Date/Time: Jan 08 2021 1:46P Dictated by : GERARDO VALLEJO MD This examination was interpreted and the report reviewed and electronically signed by: GERARDO VALLEJO MD on Jan 08 2021 3:04PM EST Lorenzo Perry DO MRI-PAMA Final Resul t documented in this encounter Visit Diagnoses Diagnosis Chronic right shoulder pain Pain in joint, shoulder region Chronic right shoulder pain Pain in joint, shoulder region documented in this encounter Care Teams Medical Chief Technician Relationship Specialty Start Date End Date Farhat Cabezas MD PCP - General Family Medicine 01/13/11 Farhat Cabezas MD Referring Family Medicine 01/08/22 documented as of this encounter
--- OUTSIDE RECORDS SUMMARY | 2024-07-20 16:28 | XMS_ITS | Encounter Summary ---
Demographics Address [address] [facility] [place] [address] Home Phone Mobile Phone Email Address Preferred Language ENG Marital Status Single Jewish Affiliation Unknown Race White Ethnic Group Not or Lati no Author Organization [facility] Address [facility] [place] [address] Care Team Providers Care Import/Export Clerk Name Role Phone Farhat Cabezas MD Primary Care Provider [phone] Farhat Cabezas MD Unavailable [phone] Source Comments In the event this information is protected by the Federal Confidentiality of Alcohol and Drug AbusePatient Records regulations: The Federal rules restrict any use of the information to criminally investigate or prosecute any alcohol or drug abuse patient.[facility] Encounter Details Date Type Department Care Team (Late st Contact Info) Description 10/25/2016 Patient Msg Medical Records [address] [place] [address] Provider, [facility] Medical Education Program Social History [...] Contact Info) Description 08/30/2024 9:30 AM EDT [facility] Endocrinology [address] [place] [phone] Greg Nina APRN.BOOSTER PUMP OPERATOR [address] [place], [place] [phone] diabetes follow up with me in 3 months virtually 11/20/2024 1:00 PM EDT [facility] Endocrinology [address] [place] [address] Valdez Suarez MD [address] [place] [address] [address] [place], [place] [phone] follow up in 6 months documented as of this encounter Visit Diagnoses Not on filedocumented in this encounter Care Teams Import/Export Clerk Relationship Specialty Start Date End Date Farhat Cabezas MD PCP - General Family Medicine 01/13/11 Farhat Cabezas MD Referring Family Medicine 01/08/22 documented as of this encounter
--- OUTSIDE RECORDS SUMMARY | 2024-07-20 16:28 | XMS_ITS | Encounter Summary ---
Demographics Address [address] [facility] [place] [address] Home Phone Mobile Phone Email Address faisal .[employer] Preferred Language ENG Marital Status Single Jainism Affiliation Unknown Race White Ethnic Group Not or Lati no Author Organization [facility] Address [address] [place] [address] Care Team Providers Care Candy Bar Attendant Name Role Phone Farhat Cabezas MD Primary Care Provider [phone] Farhat Cabezas MD Unavailable Source Comments In the event this information is protected by the Federal Confidentiality of Alcohol and Drug AbusePatient Records regulations: The Federal rules restrict any use of the information to criminally investigate or prosecute any alcohol or drug abuse patient.[facility] Encounter Details Date Type Department Care Team (Late st Contact Info) Description 02/05/2021 Get Medical Advice Rheumatology [address] [address] Lorenzo Perry DO [address] [place] [address] Fever / aches Social History Tobacco Use Types Packs/Day Years [...] N ot on file 01/16/2020 Data from: https://www.neighborhoodatlas.medicine.[facility].edu/. Last address used for calculation Not [...] Info) Description 08/30/2024 9:30 AM EDT [facility] Endocrinology [address] [place] [phone] Greg Nina APRN.INFORMATION SERVICES VICE PRESIDENT [address] [place], [place] [phone] diabetes follow up with me in 3 months virtually 11/20/2024 1:00 PM EDT [facility] Endocrinology [address] [place] [address] Valdez Suarez MD [address] [place] [address] [address] [place], [place] [phone] follow up in 6 months documented as of this encounter Visit Diagnoses Not on filedocumented in this encounter Care Teams Candy Bar Attendant Relationship Specialty Start Date End Date Farhat Cabezas MD PCP - General Family Medicine 01/13/11 Farhat Cabezas MD Referring Family Medicine 01/08/22 documented as of this encounter
--- OUTSIDE RECORDS SUMMARY | 2024-07-20 16:28 | XMS_ITS | Encounter Summary ---
Demographics Address [address] [facility] [place] [address] Home Phone Mobile Phone Email Address Preferred Language ENG Marital Status Single Buddhism Affiliation Unknown Race White Ethnic Group Not or Lati no Author Organization [facility] Address [address] [place] [address] Care Team Providers Care Artist'S Manager Name Role Phone Farhat Cabezas MD Primary Care Provider [phone] Farhat Cabezas MD Unavailable [phone] Source Comments In the event this information is protected by the Federal Confidentiality of Alcohol and Drug AbusePatient Records regulations: The Federal rules restrict any use of the information to criminally investigate or prosecute any alcohol or drug abuse patient.[facility] Encounter Details Date Type Department Care Team (Late st Contact Info) Description 01/05/2021 Get Medical Advice Rheumatology [address] [address] Lorenzo Perry DO [address] [place] [address] Mri/pain shoulder Social History Tobacco Use Types Packs/Day Years [...] N ot on file 01/16/2020 Data from: https://www.neighborhoodatlas.medicine.[facility].edu/. Last address used for calculation Not [...] Contact Info) Description 08/30/2024 9:30 AM EDT [facility] Endocrinology [address] [place] [phone] Greg Nina APRN.QUILTING MACHINE OPERATOR [address] [place], [place] [phone] diabetes follow up with me in 3 months virtually 11/20/2024 1:00 PM EDT [facility] Endocrinology [address] [place] [address] Valdez Suarez MD [address] [place] [address] [address] [place], [place] [phone] follow up in 6 months documented as of this encounter Visit Diagnoses Not on filedocumented in this encounter Care Teams Artist'S Manager Relationship Specialty Start Date End Date Farhat Cabezas MD PCP - General Family Medicine 01/13/11 Farhat Cabezas MD Referring Family Medicine 01/08/22 documented as of this encounter
--- OUTSIDE RECORDS SUMMARY | 2024-07-20 16:28 | XMS_ITS | Encounter Summary ---
Demographics Address [address] [facility] [place] [address] Home Phone Mobile Phone Email Address Preferred Language ENG Marital Status Single Scientologist Affiliation Unknown Race White Ethnic Group Not or Lati no Author Organization [facility] Address [address] [place] [address] Care Team Providers Care Hand Cloth Cutter Name Role Phone Farhat Cabezas MD Primary Care Provider [phone] Farhat Cabezas MD Unavailable [phone] Source Comments In the event this information is protected by the Federal Confidentiality of Alcohol and Drug AbusePatient Records regulations: The Federal rules restrict any use of the information to criminally investigate or prosecute any alcohol or drug abuse patient.[facility] Encounter Details Date Type Department Care Team (Late st Contact Info) Description 02/09/2018 Patient Msg General Surgery [address] [place] [address] Monica Adam, JAKY labs Social History Tobacco Use Types Packs/Day Years [...] Info) Description 08/30/2024 9:30 AM EDT [facility] Endocrinology [address] [place] [phone] Greg Nina APRN.ASIC VERIFICATION ENGINEER [address] [place] [address] diabetes follow up with me in 3 months virtually 11/20/2024 1:00 PM EDT [facility] Endocrinology [address] [place] [phone] Valdez Suarez MD [address] [place] [address] [address] [place], [place] [phone] follow up in 6 months documented as of this encounter Visit Diagnoses Not on filedocumented in this encounter Care Teams Hand Cloth Cutter Relationship Specialty Start Date End Date Farhat Cabezas MD PCP - General Family Medicine 01/13/11 Farhat Cabezas MD Referring Family Medicine 01/08/22 documented as of this encounter
--- OUTSIDE RECORDS SUMMARY | 2024-07-20 16:28 | XMS_ITS | Encounter Summary ---
Demographics Address [address] [facility] [place] [address] Home Phone Mobile Phone Email Address Preferred Language ENG Marital Status Single Caodaism Affiliation Unknown Race White Ethnic Group Not or Lati no Author Organization [facility] Address [address] [place] [address] Care Team Providers Care Medical Services Coordinator Name Role Phone Farhat Cabezas MD Primary Care Provider [phone] Farhat Cabezas MD Unavailable [phone] Source Comments In the event this information is protected by the Federal Confidentiality of Alcohol and Drug AbusePatient Records regulations: The Federal rules restrict any use of the information to criminally investigate or prosecute any alcohol or drug abuse patient.[facility] Encounter Details Date Type Department Care Team (Late st Contact Info) Description 12/22/2020 Patient Msg Rheumatology [address] [address] Lorenzo Perry DO [address] [place] [phone] Request an Appointment Social History Tobacco Use Types Packs/Day Years [...] N ot on file 01/16/2020 Data from: https://www.neighborhoodatlas.medicine.[facility]/. Last address used for calculation Not on [...] or suspected to have Coronavirus / COVID-19? Unable to assess 12/23/2020 7:55 AM EST documented as of this encounter [...] Contact Info) Description 08/30/2024 9:30 AM EDT [facility] Endocrinology [address] [place] [address] Greg Nina APRN.NEUROLOGY TECH [address] [place], [place] [phone] diabetes follow up with me in 3 months virtually 11/20/2024 1:00 PM EDT [facility] Endocrinology [address] [place] [address] Valdez Suarez MD [address] [place] [address] [address] [place], [place] [phone] follow up in 6 months documented as of this encounter Visit Diagnoses Not on filedocumented in this encounter Care Teams Medical Services Coordinator Relationship Specialty Start Date End Date Farhat Cabezas MD PCP - General Family Medicine 01/13/11 Farhat Cabezas MD Referring Family Medicine 01/08/22 documented as of this encounter
--- OUTSIDE RECORDS SUMMARY | 2024-07-20 16:28 | XMS_ITS | Encounter Summary ---
Demographics Address [address] [facility] [place] [address] Home Phone Mobile Phone Email Address Preferred Language ENG Marital Status Single Yarsanism Affiliation Unknown Race White Ethnic Group Not or Lati no Author Organization [facility] Address [address] [place] [address] Care Team Providers Care Club Waiter/Waitress Name Role Phone Farhat Cabezas MD Primary Care Provider [phone] Farhat Cabezas MD Unavailable [phone] Source Comments In the event this information is protected by the Federal Confidentiality of Alcohol and Drug AbusePatient Records regulations: The Federal rules restrict any use of the information to criminally investigate or prosecute any alcohol or drug abuse patient.[facility] Encounter Details Date Type Department Care Team (Late st Contact Info) Description 04/15/2018 Patient Msg Medical Records [address] [place] [address] Provider, [facility] Counseling Referrals Social History Tobacco Use Types Packs/Day Years [...] Description 08/30/2024 9:30 AM EDT [facility] Endocrinology [address] [place] [phone] Greg Nina APRN.DUKEY RIDER [address] [place] [address] diabetes follow up with me in 3 months virtually 11/20/2024 1:00 PM EDT [facility] Endocrinology [address] [place] [phone] Valdez Suarez MD [address] [place] [address] [address] [place], [place] [phone] follow up in 6 months documented as of this encounter Visit Diagnoses Not on filedocumented in this encounter Care Teams Club Waiter/Waitress Relationship Specialty Start Date End Date Farhat Cabezas MD PCP - General Family Medicine 01/13/11 Farhat Cabezas MD Referring Family Medicine 01/08/22 documented as of this encounter
--- OUTSIDE RECORDS SUMMARY | 2024-07-20 16:28 | XMS_ITS | Encounter Summary ---
Demographics Address [address] [facility] [place] [address] Home Phone Mobile Phone Email Address Preferred Language ENG Marital Status Single Church Affiliation Unknown Race White Ethnic Group Not or Lati no Author Organization [facility] Address [address] [place] [address] Care Team Providers Care Orchard Pruner Name Role Phone Farhat Cabezas MD Primary Care Provider [phone] Farhat Cabezas MD Unavailable [phone] Source Comments In the event this information is protected by the Federal Confidentiality of Alcohol and Drug AbusePatient Records regulations: The Federal rules restrict any use of the information to criminally investigate or prosecute any alcohol or drug abuse patient.[facility] Encounter Details Date Type Department Care Team (Late st Contact Info) Description 01/20/2021 [place] [address] Provider, Ccf MRI Screening Questionnaire Completion Required Social History Tobacco Use Types Packs/Day Years [...] N ot on file 01/16/2020 Data from: https://www.neighborhoodatlas.medicine.[employer].edu/. Last address used for calculation Not on [...] [facility] Endocrinology [address] [place] [address] Greg iNna APRN.COMPLIANCE FIELD TECHNICIAN [address] [place] [address] diabetes follow up with me in 3 months virtually 11/20/2024 1:00 PM EDT [facility] Endocrinology [address] [place] [phone] Valdez Suarez MD [address] [place] [address] [place] [address] follow up in 6 months documented as of this encounter Visit Diagnoses Not on filedocumented in this encounter Care Teams Orchard Pruner Relationship Specialty Start Date End Date Farhat Cabezas MD PCP - General Family Medicine 01/13/11 Farhat Cabezas MD Referring Family Medicine 01/08/22 documented as of this encounter
--- OUTSIDE RECORDS SUMMARY | 2024-07-20 16:28 | XMS_ITS | Encounter Summary ---
Demographics Address [address] [facility] [place] [address] Home Phone Mobile Phone Email Address Preferred Language ENG Marital Status Single Pentecostal Affiliation Unknown Race White Ethnic Group Not or Lati no Author Organization [facility] Address [address] [place] [address] Care Team Providers Care Aluminum Pourer Name Role Phone Farhat Cabezas MD Primary Care Provider [phone] Farhat Cabezas MD Unavailable [phone] Source Comments In the event this information is protected by the Federal Confidentiality of Alcohol and Drug AbusePatient Records regulations: The Federal rules restrict any use of the information to criminally investigate or prosecute any alcohol or drug abuse patient.[facility] Encounter Details Date Type Department Care Team (Late st Contact Info) Description 12/24/2016 Patient Msg Medical Records [address] [place] [address] Provider, Ccf RE:Gael up from psychology group Social History Tobacco Use Types Packs/Day Years [...] Contact Info) Description 08/30/2024 9:30 AM EDT [facility] Endocrinology [address] [place] [address] Greg Nina APRN.ABSORPTION AND ADSORPTION ENGINEER [address] [place] [address] diabetes follow up with me in 3 months virtually 11/20/2024 1:00 PM EDT [facility] Endocrinology [address] [place] [phone] Valdez Suarez MD [address] [place] [address] [place], [place] [phone] follow up in 6 months documented as of this encounter Visit Diagnoses Not on filedocumented in this encounter Care Teams Aluminum Pourer Relationship Specialty Start Date End Date Farhat Cabezas MD PCP - General Family Medicine 01/13/11 Farhat Cabezas MD Referring Family Medicine 01/08/22 documented as of this encounter
--- OUTSIDE RECORDS SUMMARY | 2024-07-20 16:28 | XMS_ITS | Encounter Summary ---
Demographics Address [address] [facility] [place] [address] Home Phone Mobile Phone Email Address Preferred Language ENG Marital Status Single Taoist Affiliation Unknown Race White Ethnic Group Not or Lati no Author Organization [facility] Address [address] [place] [address] Care Team Providers Care Hose Sprayer Name Role Phone Farhat Cabezas MD Primary Care Provider [phone] Farhat Cabezas MD Unavailable [phone] Source Comments In the event this information is protected by the Federal Confidentiality of Alcohol and Drug AbusePatient Records regulations: The Federal rules restrict any use of the information to criminally investigate or prosecute any alcohol or drug abuse patient.[facility] Encounter Details Date Type Department Care Team (Late st Contact Info) Description 02/24/2017 Patient Msg Medical Records [address] [place] [address] Provider, Ccf Follow Up from Psychology Group Social History Tobacco Use Types Packs/Day Years [...] Description 08/30/2024 9:30 AM EDT [facility] Endocrinology [address] [place] [phone] Greg Nina APRN.WEIGHER AND CRUSHER [address] [place] [address] diabetes follow up with me in 3 months virtually 11/20/2024 1:00 PM EDT [facility] Endocrinology [address] [place] [phone] Valdez Suarez MD [address] [place] [address] [address] [place], [place] [address] follow up in 6 months documented as of this encounter Visit Diagnoses Not on filedocumented in this encounter Care Teams Hose Sprayer Relationship Specialty Start Date End Date Farhat Cabezas MD PCP - General Family Medicine 01/13/11 Farhat Cabezas MD Referring Family Medicine 01/08/22 documented as of this encounter
--- OUTSIDE RECORDS SUMMARY | 2024-07-20 16:28 | XMS_ITS | Encounter Summary ---
Demographics Address [address] [facility] [place] [address] Home Phone Mobile Phone Email Address Preferred Language ENG Marital Status Single Anabaptism Affiliation Unknown Race White Ethnic Group Not or Lati no Author Organization [facility] Address [address] [place] [address] Care Team Providers Care Calender Roll Press Operator Name Role Phone Farhat Cabezas MD Primary Care Provider [phone] Farhat Cabezas MD Unavailable [phone] Source Comments In the event this information is protected by the Federal Confidentiality of Alcohol and Drug AbusePatient Records regulations: The Federal rules restrict any use of the information to criminally investigate or prosecute any alcohol or drug abuse patient.[facility] Encounter Details Date Type Department Care Team (Late st Contact Info) Description 08/26/2017 Patient Msg General Surgery [address] [place] [address] Monica Adam RN diarrhea Social History Tobacco Use Types Packs/Day Years [...] Contact Info) Description 08/30/2024 9:30 AM EDT [facility] Endocrinology [address] [place] [address] Greg Nina APRN.OIL LEASE BUYER [address] [place] [address] diabetes follow up with me in 3 months virtually 11/20/2024 1:00 PM EDT [facility] Endocrinology [address] [place] [phone] Valdez Suarez MD [address] [place] [address] [address] [place], [place] [phone] follow up in 6 months documented as of this encounter Visit Diagnoses Not on filedocumented in this encounter Care Teams Calender Roll Press Operator Relationship Specialty Start Date End Date Farhat Cabezas MD PCP - General Family Medicine 01/13/11 Farhat Cabezas MD Referring Family Medicine 01/08/22 documented as of this encounter
--- OUTSIDE RECORDS SUMMARY | 2024-07-20 16:28 | XMS_ITS | Encounter Summary ---
Demographics Address [address] [facility] [place] [address] Home Phone Mobile Phone Email Address Preferred Language ENG Marital Status Single Hindu Affiliation Unknown Race White Ethnic Group Not or Lati no Author Organization [facility] Address [address] [place] [address] Care Team Providers Care Learning Technologist Name Role Phone Farhat Cabezas MD Primary Care Provider [phone] Farhat Cabezas MD Unavailable [phone] Source Comments In the event this information is protected by the Federal Confidentiality of Alcohol and Drug AbusePatient Records regulations: The Federal rules restrict any use of the information to criminally investigate or prosecute any alcohol or drug abuse patient.[facility] Encounter Details Date Type Department Care Team (Late st Contact Info) Description 12/11/2020 Patient Msg Pain Management [address] [place], [place] [phone] Provider, Ccf 3 month virtual appointment with Dr. Acevedo or Mahogany Reyes Social History Tobacco Use Types Packs/Day Years [...] N ot on file 01/16/2020 Data from: https://www.neighborhoodatlas.[facility]/. Last address used for calculation [...] Contact Info) Description 08/30/2024 9:30 AM EDT [facility] Endocrinology [address] [place] [address] Greg Nina APRN.MANUFACTURING OPERATIONS MANAGER [address] [place] [address] diabetes follow up with me in 3 months virtually 11/20/2024 1:00 PM EDT [facility] Endocrinology [address] [place] [phone] Valdez Suarez MD [address] [place] [address] [address] [place], [place] [phone] follow up in 6 months documented as of this encounter Visit Diagnoses Not on filedocumented in this encounter Care Teams Learning Technologist Relationship Specialty Start Date End Date Farhat Cabezas MD PCP - General Family Medicine 01/13/11 Farhat Cabezas MD Referring Family Medicine 01/08/22 documented as of this encounter
--- OUTSIDE RECORDS SUMMARY | 2024-07-20 16:28 | XMS_ITS | Encounter Summary ---
Demographics Address [address] [facility] [place] [address] Home Phone Mobile Phone Email Address Preferred Language ENG Marital Status Single Christianity Affiliation Unknown Race White Ethnic Group Not or Lati no Author Organization [facility] Address [address] [place] [address] Care Team Providers Care Director Nurses' Registry Name Role Phone aFrhat Cabezas MD Primary Care Provider [phone] Farhat Cabezas MD Unavailable [phone] Source Comments In the event this information is protected by the Federal Confidentiality of Alcohol and Drug AbusePatient Records regulations: The Federal rules restrict any use of the information to criminally investigate or prosecute any alcohol or drug abuse patient.[facility] Encounter Details Date Type Department Care Team (Late st Contact Info) Description 12/22/2020 [address] M[address] [facility] [address] [place], [place] [phone] Provider, Ccf Request an Appointment Social History Tobacco Use [...] N ot on file 01/16/2020 Data from: https://www.[facility] medical centeratlas.[facility]/. Last address used for calculation [...] 08/30/2024 9:30 AM EDT [facility] Endocrinology [address] [place] [address] Greg Nina APRN.TROUBLE TRACER [address] [place] [address] diabetes follow up with me in 3 months virtually 11/20/2024 1:00 PM EDT [facility] Endocrinology [address] [place] [address] Valdez Suarez MD [address] [place] [address] [address] [place], [place] [phone] follow up in 6 months documented as of this encounter Visit Diagnoses Not on filedocumented in this encounter Care Teams Director Nurses' Registry Relationship Specialty Start Date End Date Farhat Cabezas MD PCP - General Family Medicine 01/13/11 Farhat Cabezas MD Referring Family Medicine 01/08/22 documented as of this encounter
--- OUTSIDE RECORDS SUMMARY | 2024-07-20 16:28 | XMS_ITS | Encounter Summary ---
Demographics Address [address] [facility] [place] [address] Home Phone Mobile Phone Email Address Preferred Language ENG Marital Status Single Confucianist Affiliation Unknown Race White Ethnic Group Not or Lati no Author Organization [facility] Address [address] [place] [address] Care Team Providers Care Building Architect Name Role Phone Farhat Cabezas MD Primary Care Provider [phone] Farhat Cabezas MD Unavailable [phone] Source Comments In the event this information is protected by the Federal Confidentiality of Alcohol and Drug AbusePatient Records regulations: The Federal rules restrict any use of the information to criminally investigate or prosecute any alcohol or drug abuse patient.[facility] Encounter Details Date Type Department Care Team (Late st Contact Info) Description 10/27/2016 Patient Msg General Surgery [address] [place] [address] Monica Adam, JAKY Survey Social History Tobacco Use Types Packs/Day Years [...] Contact Info) Description 08/30/2024 9:30 AM EDT [facility] Endocrinology [address] [place] [address] Greg Nina APRN.COCKTAIL SERVER [address] [place], [place] [phone] diabetes follow up with me in 3 months virtually 11/20/2024 1:00 PM EDT [facility] Endocrinology [address] [place] [address] Valdez Suarez MD [address] [place] [address] [place], [place] [phone] follow up in 6 months documented as of this encounter Visit Diagnoses Not on filedocumented in this encounter Care Teams Building Architect Relationship Specialty Start Date End Date Farhat Cabezas MD PCP - General Family Medicine 01/13/11 Farhat Cabezas MD Referring Family Medicine 01/08/22 documented as of this encounter
--- OUTSIDE RECORDS SUMMARY | 2024-07-20 16:29 | XMS_ITS | Encounter Summary ---
Demographics Address [address] [facility] [place] [address] Home Phone Mobile Phone Email Address Preferred Language ENG Marital Status Single Cheondoism Affiliation Unknown Race White Ethnic Group Not or Lati no Author Organization [facility] Address [address] [place] [address] Care Team Providers Care Cryptologic Support Specialist Name Role Phone Farhat Cabezas MD Primary Care Provider [phone] Farhat Cabezas MD Unavailable [phone] Source Comments In the event this information is protected by the Federal Confidentiality of Alcohol and Drug AbusePatient Records regulations: The Federal rules restrict any use of the information to criminally investigate or prosecute any alcohol or drug abuse patient.[facility] Encounter Details Date Type Department Care Team (Late st Contact Info) Description 11/04/2020 Patient Msg [facility] Wellness [address] [place] [phone] Mustapha Branch MD [address] [place] [address] Comment Social History Tobacco Use Types Packs/Day Years Used Date Smoking Tobacco: Never Smokeless Tobacco: Never Alcohol Use Standard Drinks/Week Comments Not Currently 0 (1 standard drink = 0.6 oz pur e alcohol) Social PHQ-2 Answer Date Recorded PHQ-2 score 2 11/08/2020 Area Deprivation Index Answer Date Rod rded National Score (1-100), lower number is lower ri Not on file 01/16/2020 State Score (1-10), lower number is lower risk N ot on file 01/16/2020 Data from: https://www.neighborhoodatlas.medicine.[facility]/. Last address [...] Contact Info) Description 08/30/2024 9:30 AM EDT [facility] Endocrinology [address] [place] [address] Greg Nina APRN.AUTOMATION SALES MANAGER [address] [place], [place] [phone] diabetes follow up with me in 3 months virtually 11/20/2024 1:00 PM EDT [facility] Endocrinology [address] [place] [address] Valdez Suarez MD [address] [place] [address] [address] [place], [place] [phone] follow up in 6 months documented as of this encounter Visit Diagnoses Not on filedocumented in this encounter Care Teams Cryptologic Support Specialist Relationship Specialty Start Date End Date Farhat Cabezas MD PCP - General Family Medicine 01/13/11 Farhat Cabezas MD Referring Family Medicine 01/08/22 documented as of this encounter
--- OUTSIDE RECORDS SUMMARY | 2024-07-20 16:29 | XMS_ITS | Encounter Summary ---
Demographics Address [address] [facility] [address] Home Phone Mobile Phone Email Address Preferred Language ENG Marital Status Single Congregational Affiliation Unknown Race White Ethnic Group Not or Lati no Author Organization [facility] Address [address] [place] [address] Care Team Providers Care Gear Grinding Machine Operator Name Role Phone Farhat Cabezas MD Primary Care Provider [phone] Farhat Cabezas MD Unavailable [phone] Source Comments In the event this information is protected by the Federal Confidentiality of Alcohol and Drug AbusePatient Records regulations: The Federal rules restrict any use of the information to criminally investigate or prosecute any alcohol or drug abuse patient.[facility] Encounter Details Date Type Department Care Team (Late st Contact Info) Description 04/09/2023 Patient Msg Endocrinology [address] [place] [address] Vinicius Márquez, PRETZEL TWISTING MACHINE OPERATOR.HOURLY SALES STAFF [address] [address] [place] [address] Appointment Request Social History Tobacco Use Types Packs/Day Years Used Date Smoking Tobacco: Never Smokeless Tobacco: Never Alcohol Use Standard Drinks/Week Comments Yes 0 (1 standard drink = 0.6 oz pur e alcohol) Social PHQ-2 Answer Date Recorded PHQ-2 score 2 01/08/2022 Area Deprivation Index Answer Date Rod rded National Score (1-100), lower number is lower ri 44 12/21/2022 State Score (1-10), lower number is lower risk 2 12/21/2022 Data from: https://www.neighborhoodatlas.[facility]/. Last address used for calculation [address] 12/21/2022 Comments No Sex and Gender Information Value [...] EST Mona Cook (Rn) (Hist), RN * Because of a [...] 08/30/2024 9:30 AM EDT [facility] Endocrinology [address] [place] [address] Greg Nina APRN.HOURLY SALES STAFF [address] [place] [address] diabetes follow up with me in 3 months virtually 11/20/2024 1:00 PM EDT [facility] Endocrinology [address] [place] [address] Valdez Suarez MD [address] [place] [address] [place] [address] follow up in 6 months documented as of this encounter Visit Diagnoses Not on filedocumented in this encounter Care Teams Gear Grinding Machine Operator Relationship Specialty Start Date End Date Farhat Cabezas MD PCP - General Family Medicine 01/13/11 Farhat Cabezas MD Referring Family Medicine 01/08/22 documented as of this encounter
--- OUTSIDE RECORDS SUMMARY | 2024-07-20 16:29 | XMS_ITS | Clinical Summary ---
Author Organization [facility] Address [address] [place] [address] Care Team Providers Care Sailing Instructor Name Role Phone Farhat Cabezas MD Primary Care Provider [phone] Allergies Active Allergy Reactions Criticality Noted Date Comments Ibuprofen GI intolerance,GI bleeding 11/06/2015 Other Reaction(s): Other: See Comments GI Bleed Metformin GI intolerance 08/03/2023 Other Reaction(s): Not available Scopolamine 12/01/2016 Other Reaction(s): Mental Status Change, per pt Paranoia, confusion, hallucination Medications albuterol HFA 90 mcg/act inhaler 1 puff as needed Inhalation every 4 hrs for 30 days 05/24/19 24 Active ARIPiprazole (Abilify) 5 MG tablet Daily 05/25/19 24 Active cyanocobalamin (Vitamin B-12) 1000 MCG/ML injection inject 1 milliliter intramuscularly ONCE A MONTH as instructed 12/03/19 23 Active diazePAM (Valium) 2 MG tablet Three times daily 07/23/19 24 Active diclofenac sodium 1 % gel Apply 4 g topically in the morning and 4 g at noon and 4 g in the evening and 4 g before bedtime. 12/03/19 23 Active escitalopram (Lexapro) 10 MG tablet Take 10 mg by mouth in the morning. Active gabapentin (Neurontin) 100 MG capsule Three times daily 05/26/19 24 Active hydrOXYzine pamoate (Vistaril) 25 MG capsule Take 25 mg by mouth every 12 (twelve) hours if needed Active levothyroxine (Synthroid, Levoxyl) 75 MCG tablet Daily 12/24/19 23 Active Victoza 18 MG/3ML injection Inject 1.8 mg under the skin in the morning. 07/23/19 24 Active mirtazapine (Remeron) 15 MG tablet Bedtime 05/26/19 24 Active mirtazapine (Remeron) 7.5 MG tablet Take 7.5 mg by mouth at bedtime Active OLANZapine (ZyPREXA) 5 MG tablet TAKE 1 TABLET BY MOUTH EVERY 6 HOURS NEEDED for AGITATION FOR 15 DAYS 05/26/19 24 Active pantoprazole (ProtoNix) 40 MG EC tablet Daily 05/24/19 24 Active promethazine (Phenergan) 25 MG tablet Three times daily 01/10/20 23 Active propranolol (Inderal) 10 MG tablet Four times daily 05/24/19 24 Active SUMAtriptan (Imitrex) 100 MG tablet TAKE 1 TABLET BY MOUTH at onset FOR MIGRAINE NEEDED. may repeat dose in 2 (TWO) HOURS if no relief Active Restoril 15 MG capsule 1 (one) time each day at the same time 07/19/19 24 Active thiamine (Vitamin B-1) 100 MG tablet Take 1 tablet by mouth every 12 (twelve) hours 05/26/19 24 Active zolpidem CR (Ambien CR) 12.5 MG ER tablet Bedtime 07/23/19 24 Active Active Problems Problem Noted Date Diagnosed Date TALIA (obstructive sleep apnea) 08/03/2023 Social History Tobacco Use Types Packs/Day Years Used Date Smoking Tobacco: Unknown Tobacco Cessation:Counseling Given: Not Answered Comments Unknown Sex and Gender Information Value Date Recorded Sex Assigned at Not on file Legal Sex Female 7:24 PM EDT Gender Identity Not on file Sexual Orientation Not on file Plan of Treatment Not on file Insurance [facility] Care Teams Sailing Instructor Relationship Specialty Start Date End Date Farhat Cabezas MD PCP - General Family Medicine 07/07/23
--- OUTSIDE RECORDS SUMMARY | 2024-07-20 16:29 | XMS_ITS | Encounter Summary ---
Demographics Address [address] [place] [address] Home Phone Mobile Phone Email Address Preferred Language ENG Marital Status Single Mormon Affiliation Unknown Race White Ethnic Group Not or Lati no Author Organization [facility] Address [facility] [place] [address] Care Team Providers Care Concrete Fence Builder Name Role Phone Farhat Cabezas MD Primary Care Provider [phone] Farhat Cabezas MD Unavailable Source Comments In the event this information is protected by the Federal Confidentiality of Alcohol and Drug AbusePatient Records regulations: The Federal rules restrict any use of the information to criminally investigate or prosecute any alcohol or drug abuse patient.[facility] Encounter Details Date Type Department Care Team (Late st Contact Info) Description 04/14/2023 Get Medical Advice Gastroenterology [address] [phone] dAilene Morgan APRN.KENO TERMINAL OPERATOR [address] [place], [place] [phone] ABD PAIN, VOMITTING / OBSTRUCTION? Social History Tobacco Use Types Packs/Day Years Used Date Smoking Tobacco: Never Smokeless Tobacco: Never Alcohol Use Standard Drinks/Week Comments Yes 0 (1 standard drink = 0.6 oz pur e alcohol) Social PHQ-2 Answer Date Recorded PHQ-2 score 2 01/08/2022 Area Deprivation Index Answer Date Rod rded National Score (1-100), lower number is lower ri sk 44 12/21/2022 State Score (1-10), lower number is lower risk 2 12/21/2022 Data from: https://www.neighborhoodatlas.medicine.[facility]/. Last address used for calculation [...] (Rn) (Hist), RN documented in this encounter Miscellaneous Notes * Telephone Encounter - Loly Brito LPN - 04/14/2023 12:28 PM EST Called and spoke with Ms Reyes. She is reporting that she cannot swallow solid food, everything comes right back up. 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 She wants an esophagram or CT to rule out incarceration. I told the patient that esophagram likely wont be beneficial if she is not able to swallow and not keeping anything down, so CT scan is best diagnostic option. Given the need for imaging and her level of chest pain, I recommended patient proceed to the ED. She was not agreeable and asked if LUIZA Morgan could order a stat CT and she would sign financial waiver if needed to be done today. I told her that I would send message to LUIZA Morgan, but our recommendation was to be evaluated in the ED for her chest pain. She said she would not go to ED until she had an official answer from LUIZA Morgan, and that if needed, she would consult her family physician tomorrow for CT orders because he does pretty much whatI ask . I advised her that given her chest pain and her concern that pain is identical to when she had an incarceration, it was not advised to wait until tomorrow to seek care, and that again, or recommendation was for her to be seen in the emergency department for evaluation. Loly Brito LPN 04/14/23 12:30pm documented in this encounter Plan of Treatment Upcoming Encounters Date Type Department Care Team (Late st Contact Info) Description 08/30/2024 9:30 AM EDT [facility] Endocrinology [address] [place] [address] Greg Nina APRN.[facility] [address] [place] [address] diabetes follow up with me in 3 months virtually 11/20/2024 1:00 PM EDT [facility] Endocrinology [address] [place] [address] Valdez Suarez MD [address] [place] [address] [place] [address] follow up in 6 months documented as of this encounter Visit Diagnoses Not on filedocumented in this encounter Care Teams Concrete Fence Builder Relationship Specialty Start Date End Date Farhat Cabezas MD PCP - General Family Medicine 01/13/11 Farhat Cabezas MD Referring Family Medicine 01/08/22 documented as of this encounter
--- OUTSIDE RECORDS SUMMARY | 2024-07-20 16:29 | XMS_ITS | Encounter Summary ---
Demographics Address [address] [place] [address] Home Phone Mobile Phone Email Address Preferred Language ENG Marital Status Single Zoroastrianism Affiliation Unknown Race White Ethnic Group Not or Lati no Author Organization [facility] Address [address] [place] [address] Care Team Providers Care Accounts Payable Professional Name Role Phone Farhat Cabezas MD Primary Care Provider [phone] Farhat Cabezas MD Unavailable [phone] Source Comments In the event this information is protected by the Federal Confidentiality of Alcohol and Drug AbusePatient Records regulations: The Federal rules restrict any use of the information to criminally investigate or prosecute any alcohol or drug abuse patient.[facility] Encounter Details Date Type Department Care Team (Late st Contact Info) Description 04/29/2023 Patient [facility] -[address] [place] [address] Renetta Moore RPh At your next appointment, choose [facility]. Social History Tobacco Use Types Packs/Day Years [...] is lower risk 2 12/21/2022 Data from: https://www.neighborhoodatlas.[facility]/. Last address used for calculation [address] [...] Contact Info) Description 08/30/2024 9:30 AM EDT [facility] Endocrinology [address] [place] [phone] Greg Nina APRN.[facility] [address] [place] [address] diabetes follow up with me in 3 months virtually 11/20/2024 1:00 PM EDT [facility] Endocrinology [address] [place] [address] Valdez Suarez MD [address] [place] [address] [address] [place], [place] [phone] follow up in 6 months documented as of this encounter Visit Diagnoses Not on filedocumented in this encounter Care Teams Accounts Payable Professional Relationship Specialty Start Date End Date Farhat Cabezas MD PCP - General Family Medicine 01/13/11 Farhat Cabezas MD Referring Family Medicine 01/08/22 documented as of this encounter
--- OUTSIDE RECORDS SUMMARY | 2024-07-20 16:29 | XMS_ITS | Encounter Summary ---
Demographics Address [address] [place] [address] Home Phone Mobile Phone Email Address Preferred Language ENG Marital Status Single Protestant Affiliation Unknown Race White Ethnic Group Not or Lati no Author Organization [facility] Address [address] [place] [address] Care Team Providers Care Air Brake Tester Name Role Phone Farhat Cabezas MD Primary Care Provider [phone] Farhat Cabezas MD Unavailable [phone] Source Comments In the event this information is protected by the Federal Confidentiality of Alcohol and Drug AbusePatient Records regulations: The Federal rules restrict any use of the information to criminally investigate or prosecute any alcohol or drug abuse patient.[facility] Encounter Details Date Type Department Care Team (Late st Contact Info) Description 12/01/2022 Patient Msg Neurology [address] [place] [phone] Thaddeus Diggs MD [address] [place] [address] Follow up Social History Tobacco Use Types Packs/Day Years Used Date Smoking Tobacco: Never Smokeless Tobacco: Never Alcohol Use Standard Drinks/Week Comments Not Currently 0 (1 standard drink = 0.6 oz pur e alcohol) Social PHQ-2 Answer Date Recorded PHQ-2 score 2 01/08/2022 Area Deprivation Index Answer Date Rod rded National Score (1-100), lower number is lower ri sk 64 06/11/2022 State Score (1-10), lower number is lower risk 4 06/11/2022 Data from: https://www.neighborhoodatlas.medicine.[facility]/. Last address used for calculation [address] 06/11/2022 Comments No Sex and Gender Information Value [...] Contact Info) Description 08/30/2024 9:30 AM EDT [facility] Endocrinology [address] [place] [phone] Greg Nina APRN.CLINICAL DENTAL TECHNICIAN [address] [place], [place] [phone] diabetes follow up with me in 3 months virtually 11/20/2024 1:00 PM EDT [facility] Endocrinology [address] [place] [address] Valdez Suarez MD [address] [place] [address] [address] [place], [place] [phone] follow up in 6 months documented as of this encounter Visit Diagnoses Not on filedocumented in this encounter Care Teams Air Brake Tester Relationship Specialty Start Date End Date Farhat Cabezas MD PCP - General Family Medicine 01/13/11 Farhat Cabezas MD Referring Family Medicine 01/08/22 documented as of this encounter
--- OUTSIDE RECORDS SUMMARY | 2024-07-20 16:29 | XMS_ITS | Encounter Summary ---
Demographics Address [address] [place] [address] Home Phone Mobile Phone Email Address Preferred Language ENG Marital Status Single Methodist Affiliation Unknown Race White Ethnic Group Not or Lati no Author Organization [facility] Address [address] [place] [address] Care Team Providers Care Printing Gray Cloth Tender Name Role Phone Farhat Cabezas MD Primary Care Provider [phone] Farhat Cabezas MD Unavailable [phone] Source Comments In the event this information is protected by the Federal Confidentiality of Alcohol and Drug AbusePatient Records regulations: The Federal rules restrict any use of the information to criminally investigate or prosecute any alcohol or drug abuse patient.[facility] Encounter Details Date Type Department Care Team (Late st Contact Info) Description 03/16/2023 Patient Msg Endocrinology [address] [place] [address] [place] [address] [place] [address] Following up Social History Tobacco Use Types Packs/Day [...] is lower risk 2 12/21/2022 Data from: https://www.neighborhoodatlas.[facility]/. Last address used for calculation [address] [...] Contact Info) Description 08/30/2024 9:30 AM EDT [facility] Endocrinology [address] [place] [address] Greg Nina APRN.ENVIRONMENTAL DESIGNER [address] [place] [address] diabetes follow up with me in 3 months virtually 11/20/2024 1:00 PM EDT [facility] Endocrinology [address] [place] [phone] Valdez Suarez MD [address] [place] [address] [place] [address] follow up in 6 months documented as of this encounter Visit Diagnoses Not on filedocumented in this encounter Care Teams Printing Gray Cloth Tender Relationship Specialty Start Date End Date Farhat Cabezas MD PCP - General Family Medicine 01/13/11 Farhat Cabezas MD Referring Family Medicine 01/08/22 documented as of this encounter
--- OUTSIDE RECORDS SUMMARY | 2024-07-20 16:29 | XMS_ITS | Encounter Summary ---
Demographics Address [address] [place] [address] Home Phone Mobile Phone Email Address Preferred Language ENG Marital Status Single Rastafarian Affiliation Unknown Race White Ethnic Group Not or Lati no Author Organization [facility] Address [address] [place] [address] Care Team Providers Care Gate Supervisor Name Role Phone Farhat Cabezas MD Primary Care Provider [phone] Farhat Cabezas MD Unavailable [phone] Source Comments In the event this information is protected by the Federal Confidentiality of Alcohol and Drug AbusePatient Records regulations: The Federal rules restrict any use of the information to criminally investigate or prosecute any alcohol or drug abuse patient.[facility] Encounter Details Date Type Department Care Team (Late st Contact Info) Description 04/26/2023 Patient Msg Endocrinology [address] [place] [address] [place] [address] [place], [place] [phone] Board Complaint Filed Social History Tobacco Use Types Packs/Day Years [...] is lower risk 2 12/21/2022 Data from: https://www.neighborhoodatlas.medicine.[facility].edu/. Last address used for calculation [address] [...] 08/30/2024 9:30 AM EDT [facility]ocrinology [address] [place] [address] Greg Nina APRN.PIPE BENDING MACHINE OPERATOR [address] [place] [address] diabetes follow up with me in 3 months virtually 11/20/2024 1:00 PM EDT [facility] Endocrinology [address] [place] [address] Valdez Suarez MD [address] [place] [address] [place] [address] follow up in 6 months documented as of this encounter Visit Diagnoses Not on filedocumented in this encounter Care Teams Gate Supervisor Relationship Specialty Start Date End Date Farhat Cabezas MD PCP - General Family Medicine 01/13/11 Farhat Cabezas MD Referring Family Medicine 01/08/22 documented as of this encounter
--- OUTSIDE RECORDS SUMMARY | 2024-07-20 16:29 | XMS_ITS | Encounter Summary ---
Demographics Address [address] [place] [address] Home Phone Mobile Phone Email Address Preferred Language ENG Marital Status Single Buddhism Affiliation Unknown Race White Ethnic Group Not or Lati no Author Organization [facility] Address [address] [place] [address] Care Team Providers Care Hooking Machine Operator Name Role Phone Farhat Cabezas MD Primary Care Provider [phone] Farhat Cabezas MD Unavailable Source Comments In the event this information is protected by the Federal Confidentiality of Alcohol and Drug AbusePatient Records regulations: The Federal rules restrict any use of the information to criminally investigate or prosecute any alcohol or drug abuse patient.[facility] Encounter Details Date Type Department Care Team (Late st Contact Info) Description 11/17/2022 Get Medical Advice Neurology [address] [place] [address] Thaddeus Diggs MD [address] [place] [address] Neck/ Neuro / symptoms Social History Tobacco Use Types Packs/Day Years [...] is lower risk 4 06/11/2022 Data from: https://www.neighborhoodatlas.medicine.[facility]/. Last address used for calculation [address] [facility] 06/11/2022 Comments No Sex and Gender Information [...] Contact Info) Description 08/30/2024 9:30 AM EDT [facility] Endocrinology [address] [place] [address] Greg Nina, MARITZA.MOBILE PRACTICE LEAD [address] [place], [place] [phone] diabetes follow up with me in 3 months virtually 11/20/2024 1:00 PM EDT [facility] Endocrinology [address] [place] [address] Valdez Suarez MD [address] [place] [address] [place], [place] [phone] follow up in 6 months documented as of this encounter Visit Diagnoses Not on filedocumented in this encounter Care Teams Hooking Machine Operator Relationship Specialty Start Date End Date Farhat Cabezas MD PCP - General Family Medicine 01/13/11 Farhat Cabezas MD Referring Family Medicine 01/08/22 documented as of this encounter
--- OUTSIDE RECORDS SUMMARY | 2024-07-20 16:29 | XMS_ITS | Encounter Summary ---
Demographics Address [address] [address] Home Phone Mobile Phone Email Address Preferred Language ENG Marital Status Single Taoism Affiliation Unknown Race White Ethnic Group Not or Lati no Author Organization [facility] Address [address] [place] [address] Care Team Providers Care Engineer Remote Control Diesel Name Role Phone Farhat Cabezas MD Primary Care Provider [phone] Farhat Cabezas MD Unavailable [phone] Source Comments In the event this information is protected by the Federal Confidentiality of Alcohol and Drug AbusePatient Records regulations: The Federal rules restrict any use of the information to criminally investigate or prosecute any alcohol or drug abuse patient.[facility] Encounter Details Date Type Department Care Team (Late st Contact Info) Description 04/09/2023 Patient Msg Pain Management [address] [place], [place] [phone] [place] [address] [facility] [address] [place] [address] Appointment Request Social History Tobacco Use Types [...] is lower risk 2 12/21/2022 Data from: https://www.neighborhoodatlas.[facility]/. Last address used for calculation [address] [...] Contact Info) Description 08/30/2024 9:30 AM EDT [facility] Endocrinology [address] [place] [address] Greg Nina APRN.COMPACTOR DRIVER [address] [place] [address] diabetes follow up with me in 3 months virtually 11/20/2024 1:00 PM EDT [facility] Endocrinology [address] [place] [address] Valdez Suarez MD [address] [place] [address] [place] [address] follow up in 6 months documented as of this encounter Visit Diagnoses Not on filedocumented in this encounter Care Teams Engineer Remote Control Diesel Relationship Specialty Start Date End Date Farhat Cabezas MD PCP - General Family Medicine 01/13/11 Farhat Cabezas MD Referring Family Medicine 01/08/22 documented as of this encounter
--- OUTSIDE RECORDS SUMMARY | 2024-07-20 16:29 | XMS_ITS | Encounter Summary ---
Demographics Address [address] [place] [address] Home Phone Mobile Phone Email Address Preferred Language ENG Marital Status Single Orthodox Affiliation Unknown Race White Ethnic Group Not or Lati no Author Organization [facility] Address [facility] [place] [address] Care Team Providers Care Sports Director Name Role Phone Farhat Cabezas MD Primary Care Provider [phone] Farhat Cabezas MD Unavailable [phone] Source Comments In the event this information is protected by the Federal Confidentiality of Alcohol and Drug AbusePatient Records regulations: The Federal rules restrict any use of the information to criminally investigate or prosecute any alcohol or drug abuse patient.[facility] Encounter Details Date Type Department Care Team (Late st Contact Info) Description 04/15/2023 Patient Msg Gastroenterology [address] [phone] Adilene Morgan APRN.MANAGER SHIFT [address] [phone] Follow up contact lens blocker and cutter Social History Tobacco Use Types Packs/Day Years [...] is lower risk 2 12/21/2022 Data from: https://www.neighborhoodatlas.[facility]/. Last address used for calculation [address] [...] 08/30/2024 9:30 AM EDT [facility] Endocrinology [address] [place] [address] Greg Nina APRN.MANAGER SHIFT [address] [place] [address] diabetes follow up with me in 3 months virtually 11/20/2024 1:00 PM EDT [facility] Endocrinology [address] [place] [address] Valdez Suarez MD [address] [place] [address] [place] [address] follow up in 6 months documented as of this encounter Visit Diagnoses Not on filedocumented in this encounter Care Teams Sports Director Relationship Specialty Start Date End Date Farhat Cabezas MD PCP - General Family Medicine 01/13/11 Farhat Cabezas MD Referring Family Medicine 01/08/22 documented as of this encounter
--- OUTSIDE RECORDS SUMMARY | 2024-07-20 16:29 | XMS_ITS | Encounter Summary ---
Demographics Address [address] [place] [address] Home Phone Mobile Phone Email Address Preferred Language ENG Marital Status Single Adventism Affiliation Unknown Race White Ethnic Group Not or Lati no Author Organization [facility] Address [address] [place] [address] Care Team Providers Care Fruit Tester Name Role Phone Farhat Cabezas MD Primary Care Provider [phone] Farhat Cabezas MD Unavailable [phone] Source Comments In the event this information is protected by the Federal Confidentiality of Alcohol and Drug AbusePatient Records regulations: The Federal rules restrict any use of the information to criminally investigate or prosecute any alcohol or drug abuse patient.[facility] Encounter Details Date Type Department Care Team (Late st Contact Info) Description 03/30/2023 Patient Msg Endocrinology [address] [place] [address] [place] [address] [place] [address] Following up Social History Tobacco Use Types [...] is lower risk 2 12/21/2022 Data from: https://www.neighborhoodatlas.[facility]/. Last address used for calculation [address] [...] Contact Info) Description 08/30/2024 9:30 AM EDT [facility] Endocrinology [address] [place] [address] Greg Nina APRN.TRADER [address] [place] [address] diabetes follow up with me in 3 months virtually 11/20/2024 1:00 PM EDT [facility] Endocrinology [address] [place] [address] Valdez Suarez MD [address] [place] [address] [place] [address] follow up in 6 months documented as of this encounter Visit Diagnoses Not on filedocumented in this encounter Care Teams Fruit Tester Relationship Specialty Start Date End Date Farhat Cabezas MD PCP - General Family Medicine 01/13/11 Farhat Cabezas MD Referring Family Medicine 01/08/22 documented as of this encounter
--- OUTSIDE RECORDS SUMMARY | 2024-07-20 16:29 | XMS_ITS | Encounter Summary ---
Demographics Address [address] [place] [address] Home Phone Mobile Phone Email Address Preferred Language ENG Marital Status Single Zoroastrian Affiliation Unknown Race White Ethnic Group Not or Lati no Author Organization [facility] Address [address] [place] [address] Care Team Providers Care Service Trainer Name Role Phone Farhat Cabezas MD Primary Care Provider [phone] Farhat Cabezas MD Unavailable [phone] Source Comments In the event this information is protected by the Federal Confidentiality of Alcohol and Drug AbusePatient Records regulations: The Federal rules restrict any use of the information to criminally investigate or prosecute any alcohol or drug abuse patient.[facility] Encounter Details Date Type Department Care Team (Late st Contact Info) Description 03/26/2023 Patient Msg Endocrinology [address] [place] [address] [place] [address] [place] [address] Draft Narrative Social History Tobacco Use Types Packs/Day Years [...] is lower risk 2 12/21/2022 Data from: https://www.neighborhoodatlas.[facility]/. Last address used for calculation [address] [...] Info) Description 08/30/2024 9:30 AM EDT [facility] Endocrinology [address] [place] [address] Greg Nina APRN.SCIENTIFIC SOFTWARE DEVELOPER [address] [place] [address] diabetes follow up with me in 3 months virtually 11/20/2024 1:00 PM EDT [facility] Endocrinology [address] [place] [address] Valdez Suarez MD [address] [place] [address] [place] [address] follow up in 6 months documented as of this encounter Visit Diagnoses Not on filedocumented in this encounter Care Teams Service Trainer Relationship Specialty Start Date End Date Farhat Cabezas MD PCP - General Family Medicine 01/13/11 Farhat Cabezas MD Referring Family Medicine 01/08/22 documented as of this encounter
--- OUTSIDE RECORDS SUMMARY | 2024-07-20 16:29 | XMS_ITS | Encounter Summary ---
Demographics Address [address] [place] [address] Home Phone Mobile Phone Email Address Preferred Language ENG Marital Status Single Sabianism Affiliation Unknown Race White Ethnic Group Not or Lati no Author Organization [facility] Address [facility] [place] [address] Care Team Providers Care Refractory Mixer Name Role Phone Farhat Cabezas MD Primary Care Provider [phone] Farhat Cabezas MD Unavailable Source Comments In the event this information is protected by the Federal Confidentiality of Alcohol and Drug AbusePatient Records regulations: The Federal rules restrict any use of the information to criminally investigate or prosecute any alcohol or drug abuse patient.[facility] Encounter Details Date Type Department Care Team (Late st Contact Info) Description 01/28/2023 Get Medical Advice Neurology [address] [place] [address] Thaddeus Diggs MD [address] [place] [address] Continuing issues Social History Tobacco Use Types Packs/Day [...] is lower risk 2 12/21/2022 Data from: https://www.neighborhoodatlas.medicine.[facility]/. Last address used for calculation [address] [...] Contact Info) Description 08/30/2024 9:30 AM EDT [facility] Endocrinology [address] [place] [address] Greg Nina APRN.SUPERVISOR FABRICATION DEPARTMENT [address] [place], [place] 6879339 diabetes follow up with me in 3 months virtually 11/20/2024 1:00 PM EDT [facility] Endocrinology [address] [place] [address] Valdez Suarez MD [address] [place] [address] [address] [place], [place] [phone] follow up in 6 months documented as of this encounter Visit Diagnoses Not on filedocumented in this encounter Care Teams Refractory Mixer Relationship Specialty Start Date End Date Farhat Cabezas MD PCP - General Family Medicine 01/13/11 Farhat Cabezas MD Referring Family Medicine 01/08/22 documented as of this encounter
--- OUTSIDE RECORDS SUMMARY | 2024-07-20 16:29 | XMS_ITS ---
Demographics Address [address] [place] [address] Home Phone Mobile Phone Email Address Preferred Language ENG Marital Status Single Congregation Affiliation Unknown Race White Ethnic Group Not or Lati no Author Organization [facility] Address [address] [place] [address] Care Team Providers Care Cereal Supervisor Name Role Phone Farhat Cabezas MD Primary Care Provider [phone] Farhat Cabezas MD Unavailable [phone] Active Problems * This document contains information received from the source organization and may not represent a complete record from that organization. Problem Noted Date Diagnosed Date No-show for [...] (09/24/2017): Added automatically from request for surgery [id number] Vomiting of fecal matter with nausea 09/24/2017 Overview (09/24/2017): Added automatically from request for surgery [id number] Postoperative malabsorption 03/04/2017 Pneumonia 12/06/2016 Nausea and [...] AM EDT): Assessment: treats successfully w/Protonix Anemia Current Treatment and Therapy Plans No current plan information found. Past Treatment and Therapy Plans Resolved Problems Problem Noted Date Diagnosed Date Resolved Date Malignant tumor of thyroid gland 01/21/2023 01/22/20 23 01/22/2023 Generalized anxiety disorder 01/09/2023 01/21/2023 01/22/2023 Palpitations 10/07/2022 10/23/2022 Obesity, Class I, BMI 30-34.9 01/10/2018 10/23/2022 Morbid obesity 11/24/2016 10/23/2022 Morbid obesity due to excess calories 08/31/2016 12/01/2016 Overview (08/31/2016): Added automatically from request for surgery [id number] Hernia, paraesophageal 08/31/201612/01 Overview (08/31/2016): Added automatically from request for surgery [id number] Mitral and aortic valve regurgitation 09/08/2009 10/23/2022 Overview (10/08/2017): Aortic insufficiency EF 60% DR Zuniga -- judged to be non-surgical and mild
--- OUTSIDE RECORDS SUMMARY | 2024-07-20 16:29 | XMS_ITS | Encounter Summary ---
Demographics Address [address] [facility] [place] [address] Home Phone Mobile Phone Email Address Preferred Language ENG Marital Status Single Voodoo Affiliation Unknown Race White Ethnic Group Not or Lati no Author Organization [facility] Address [address] [place] [address] Care Team Providers Care Radiation Protection Technician Name Role Phone Farhat Cabezas MD Primary Care Provider [phone] Farhat Cabezas MD Unavailable [phone] Source Comments In the event this information is protected by the Federal Confidentiality of Alcohol and Drug AbusePatient Records regulations: The Federal rules restrict any use of the information to criminally investigate or prosecute any alcohol or drug abuse patient.[facility] Encounter Details Date Type Department Care Team (Late st Contact Info) Description 04/26/2023 GI Preprocedure Call Gastroenterology [address] [id number] Shania Sotomayor LPN Social History Tobacco Use Types Packs/Day Years [...] is lower risk 2 12/21/2022 Data from: https://www.neighborhoodatlas.[facility]/. Last address used for calculation [address] [...] 08/30/2024 9:30 AM EDT [facility] Endocrinology [address] [place] [address] Greg Nina APRN.CUSTOMER ACCOUNT ADMINISTRATOR [address] [place] [address] diabetes follow up with me in 3 months virtually 11/20/2024 1:00 PM EDT [facility] Endocrinology [address] [place] [address] Valdez Suarez MD [address] [place] [address] [address] [place], [place] [phone] follow up in 6 months documented as of this encounter Visit Diagnoses Not on filedocumented in this encounter Care Teams Radiation Protection Technician Relationship Specialty Start Date End Date Farhat Cabezas MD PCP - General Family Medicine 01/13/11 Farhat Cabezas MD Referring Family Medicine 01/08/22 documented as of this encounter
--- OUTSIDE RECORDS SUMMARY | 2024-07-20 16:29 | XMS_ITS | Encounter Summary ---
Demographics Address [address] [facility] [place] [address] Home Phone Mobile Phone Email Address Preferred Language ENG Marital Status Single Rastafarian Affiliation Unknown Race White Ethnic Group Not or Lati no Author Organization [facility] Address [address] [place] [address] Care Team Providers Care Cafe Team Member Name Role Phone Farhat Cabezas MD Primary Care Provider [phone] Farhat Cabezas MD Unavailable [phone] Source Comments In the event this information is protected by the Federal Confidentiality of Alcohol and Drug AbusePatient Records regulations: The Federal rules restrict any use of the information to criminally investigate or prosecute any alcohol or drug abuse patient.[facility] Encounter Details Date Type Department Care Team (Late st Contact Info) Description 10/23/2020 Patient Msg Pre Anesthesia [address] [place] [address] Dunia Pickett PA-C [address] [place] [address] Preop Instructions Social History Tobacco Use Types Packs/Day Years Used Date Smoking Tobacco: Never Smokeless Tobacco: Never Alcohol Use Standard Drinks/Week Comments Not Currently 0 (1 standard drink = 0.6 oz pur e alcohol) Social Area Deprivation Index Answer Date Rod rded National Score (1-100), lower number is lower ri sk Not on file 01/16/2020 State Score (1-10), lower number is lower risk N ot on file 01/16/2020 Data from: https://www.neighborhoodatlas.[facility]/. Last address used for calculation Not on [...] have Coronavirus / COVID-19? No / Unsure 10/24/2020 5:52 PM EDT documented as of this encounter Functional [...] 9:30 AM EDT [facility] Endocrinology [address] [place] [address] Greg Nnia, CORN PICKER.HOGSHEAD DUMPER [address] [place], [place] [phone] diabetes follow up with me in 3 months virtually 11/20/2024 1:00 PM EDT [facility] Endocrinology [address] [place] [address] Valdez Suarez MD [address] [place] [address] [place] [address] follow up in 6 months documented as of this encounter Visit Diagnoses Not on filedocumented in this encounter Care Teams Cafe Team Member Relationship Specialty Start Date End Date Farhat Cabezas MD PCP - General Family Medicine 01/13/11 Farhat Cabezas MD Referring Family Medicine 01/08/22 documented as of this encounter
--- OUTSIDE RECORDS SUMMARY | 2024-07-20 16:29 | XMS_ITS | Encounter Summary ---
Demographics Address [address] [place] [address] Home Phone Mobile Phone Email Address Preferred Language ENG Marital Status Single Mu-Ism Affiliation Unknown Race White Ethnic Group Not or Lati no Author Organization [facility] Address [address] [place] [address] Care Team Providers Care Record Label Intern Name Role Phone Farhat Cabezas MD Primary Care Provider [phone] Farhat Cabezas MD Unavailable Source Comments In the event this information is protected by the Federal Confidentiality of Alcohol and Drug AbusePatient Records regulations: The Federal rules restrict any use of the information to criminally investigate or prosecute any alcohol or drug abuse patient.[facility] Encounter Details Date Type Department Care Team (Late st Contact Info) Description 03/08/2023 Patient Msg Endocrinology [address] [place] [address] [place] [address] [place] [address] Checking-in Social History Tobacco Use Types Packs/Day Years [...] is lower risk 2 12/21/2022 Data from: https://www.neighborhoodatlas.medicine.[facility]/. Last address used for calculation [address] [...] 08/30/2024 9:30 AM EDT [facility] Endocrinology [address] [place] [address] Greg Nina APRN.VALIDATION ARCHITECT [address] [place] [address] diabetes follow up with me in 3 months virtually 11/20/2024 1:00 PM EDT [facility] Endocrinology [address] [place] [address] Valdez Suarez MD [address] [place] [address] [place] [address] follow up in 6 months documented as of this encounter Visit Diagnoses Not on filedocumented in this encounter Care Teams Record Label Intern Relationship Specialty Start Date End Date Farhat Cabezas MD PCP - General Family Medicine 01/13/11 Farhat Cabezas MD Referring Family Medicine 01/08/22 documented as of this encounter
--- OUTSIDE RECORDS SUMMARY | 2024-07-20 16:29 | XMS_ITS | Encounter Summary ---
Demographics Address [address] [address] Home Phone Mobile Phone Email Address Preferred Language ENG Marital Status Single Quaker Affiliation Unknown Race White Ethnic Group Not or Lati no Author Organization Address [address] [place] [address] Care Team Providers Care Barrel Charrer Name Role Phone Farhat Cabezas MD Primary Care Provider [phone] Farhat Cabezas MD Unavailable [phone] Source Comments In the event this information is protected by the Federal Confidentiality of Alcohol and Drug AbusePatient Records regulations: The Federal rules restrict any use of the information to criminally investigate or prosecute any alcohol or drug abuse patient. Encounter Details Date Type Department Care Team (Late st Contact Info) Description 02/08/2023 Get Medical Advice Neurology [address] [place] [address] Thaddeus Diggs MD [address] [place] [address] Desperate for answer Social History Tobacco Use Types Packs/Day Years [...] is lower risk 2 12/21/2022 Data from: https://www.neighborhoodatlas.medicine.[facility]/. Last address used for calculation [address] 12/21/2022 Comments No Sex and Gender [...] Contact Info) Description 08/30/2024 9:30 AM EDT [facility] Endocrinology [address] [place] [address] Greg Nina APRN.TMD TEACHER [address] [place], [place] [phone] diabetes follow up with me in 3 months virtually 11/20/2024 1:00 PM EDT [facility] Endocrinology [address] [place] [address] Valdez Suarez MD [address] [place] [address] [address] [place], [place] 15158[address] follow up in 6 months documented as of this encounter Visit Diagnoses Not on filedocumented in this encounter Care Teams Barrel Charrer Relationship Specialty Start Date End Date Farhat Cabezas MD PCP - General Family Medicine 01/13/11 Farhat Cabezas MD Referring Family Medicine 01/08/22 documented as of this encounter
--- OUTSIDE RECORDS SUMMARY | 2024-07-20 16:29 | XMS_ITS | Encounter Summary ---
Demographics Address [address] [facility] [place] [address] Home Phone Mobile Phone Email Address Preferred Language ENG Marital Status Single Episcopalian Affiliation Unknown Race White Ethnic Group Not or Lati no Author Organization [facility] Address [address] [place] [address] Care Team Providers Care Installment Dealer Name Role Phone Farhat Cabezas MD Primary Care Provider [phone] Farhat Cabezas MD Unavailable [phone] Source Comments In the event this information is protected by the Federal Confidentiality of Alcohol and Drug AbusePatient Records regulations: The Federal rules restrict any use of the information to criminally investigate or prosecute any alcohol or drug abuse patient.[facility] Encounter Details Date Type Department Care Team (Late st Contact Info) Description 10/22/[address] [facility] [facility] [address] [place], [place] [phone] Provider, [facility] Referral- WELLNESS CONSULT Social History Tobacco Use Types Packs/Day Years [...] N ot on file 01/16/2020 Data from: https://www.neighborhoodatlas.medicine.[facility].edu/. Last address used for calculation Not [...] Contact Info) Description 08/30/2024 9:30 AM EDT [facility] Endocrinology [address] [place] [address] Greg Nina APRN.CAPTAIN/AIRLINE PILOT [address] [place], [place] [phone] diabetes follow up with me in 3 months virtually 11/20/2024 1:00 PM EDT [facility] Endocrinology [address] [place] [address] Valdez Suarez MD [address] [place] [address] [place] [address] follow up in 6 months documented as of this encounter Visit Diagnoses Not on filedocumented in this encounter Care Teams Installment Dealer Relationship Specialty Start Date End Date Farhat Cabezas MD PCP - General Family Medicine 01/13/11 Farhat Cabezas MD Referring Family Medicine 01/08/22 documented as of this encounter
--- OUTSIDE RECORDS SUMMARY | 2024-07-20 16:29 | XMS_ITS | Encounter Summary ---
Demographics Address [address] [place] [address] Home Phone Mobile Phone Email Address Preferred Language ENG Marital Status Single Catholic Affiliation Unknown Race White Ethnic Group Not or Lati no Author Organization [facility] Address [address] [place] [address] Care Team Providers Care Recreation Manager Name Role Phone Farhat Cabezas MD Primary Care Provider [phone] Farhat Cabezas MD Unavailable [phone] Source Comments In the event this information is protected by the Federal Confidentiality of Alcohol and Drug AbusePatient Records regulations: The Federal rules restrict any use of the information to criminally investigate or prosecute any alcohol or drug abuse patient.[facility] Encounter Details Date Type Department Care Team (Late st Contact Info) Description 04/21/2023 Patient Msg Endocrinology [address] [place] [address] [place] [address] [place] [address] Report Next Steps Social History Tobacco Use Types Packs/Day Years [...] lower risk 2 12/21/2022 Data from: https://www.neighborhoodatlas.medicine.[facility]/. Last address used for calculation [...] 08/30/2024 9:30 AM EDT [facility] Endocrinology [address] [place] [address] Greg Nina APRN.HEARING SCREEN COORDINATOR [address] [place] [address] diabetes follow up with me in 3 months virtually 11/20/2024 1:00 PM EDT [facility] Endocrinology [address] [place] [address] Valdez Suarez MD [address] [place] [address] [place] [address] follow up in 6 months documented as of this encounter Visit Diagnoses Not on filedocumented in this encounter Care Teams Recreation Manager Relationship Specialty Start Date End Date Farhat Cabezas MD PCP - General Family Medicine 01/13/11 Farhat Cabezas MD Referring Family Medicine 01/08/22 documented as of this encounter
--- OUTSIDE RECORDS SUMMARY | 2024-07-20 16:29 | XMS_ITS | Encounter Summary ---
Demographics Address [address] [place] [address] Home Phone Mobile Phone Email Address Preferred Language ENG Marital Status Single Methodist Affiliation Unknown Race White Ethnic Group Not or Lati no Author Organization [facility] Address [address] [place] [address] Care Team Providers Care Construction Checker Name Role Phone Farhat Cabezas MD Primary Care Provider [phone] Farhat Cabezas MD Unavailable [phone] Source Comments In the event this information is protected by the Federal Confidentiality of Alcohol and Drug AbusePatient Records regulations: The Federal rules restrict any use of the information to criminally investigate or prosecute any alcohol or drug abuse patient.[facility] Encounter Details Date Type Department Care Team (Late st Contact Info) Description 02/05/2023 Patient Msg Endocrinology [address] [place] [address] [place] [address] [place] [address] Resources Social History Tobacco Use Types Packs/Day Years [...] is lower risk 2 12/21/2022 Data from: https://www.neighborhoodatlas.medicine.[facility]/. Last address used for calculation [...] Contact Info) Description 08/30/2024 9:30 AM EDT [facility] Endocrinology [address] [place] [address] Greg Nina APRN.EMPLOYMENT LEGAL ASSISTANT [address] [place], [place] 1506439 diabetes follow up with me in 3 months virtually 11/20/2024 1:00 PM ED[address] [facility] Endocrinology [address] [place] [address] Valdez Suarez MD [address] [place] [address] [place] [address] follow up in 6 months documented as of this encounter Visit Diagnoses Not on filedocumented in this encounter Care Teams Construction Checker Relationship Specialty Start Date End Date Farhat Cabezas MD PCP - General Family Medicine 01/13/11 Farhat Cabezas MD Referring Family Medicine 01/08/22 documented as of this encounter
--- OUTSIDE RECORDS SUMMARY | 2024-07-20 16:29 | XMS_ITS | Encounter Summary ---
Demographics Address [address] [facility] [place] [address] Home Phone Mobile Phone Email Address Preferred Language ENG Marital Status Single Mandaeism Affiliation Unknown Race White Ethnic Group Not or Lati no Author Organization [facility] Address [address] [place] [address] Care Team Providers Care Soap Maker Name Role Phone Farhat Cabezas MD Primary Care Provider [phone] Farhat Cabezas MD Unavailable [phone] Source Comments In the event this information is protected by the Federal Confidentiality of Alcohol and Drug AbusePatient Records regulations: The Federal rules restrict any use of the information to criminally investigate or prosecute any alcohol or drug abuse patient.[facility] Encounter Details Date Type Department Care Team (Late st Contact Info) Description 11/03/2020 Get Medical Advice Cardiology [address] [place], [place] [phone] Sea Collins DO [address] [place], [place] 0105453 RE: Visit Follow Up Question Social History [...] N ot on file 01/16/2020 Data from: https://www.neighborhoodatlas.[facility]/. Last address used for calculation Not [...] Contact Info) Description 08/30/2024 9:30 AM EDT [facility] Endocrinology [address] [place] [address] Greg Nina, MARITZA.NETSUITE DEVELOPER [address] [place], [place] 6278[address] diabetes follow up with me in 3 months virtually 11/20/2024 1:00 PM EDT [facility] Endocrinology [address] [place] [address] Valdez Suarez MD [address] [place] [address] [place] [address] follow up in 6 months documented as of this encounter Visit Diagnoses Not on filedocumented in this encounter Care Teams Soap Maker Relationship Specialty Start Date End Date Farhat Cabezas MD PCP - General Family Medicine 01/13/11 Farhat Cabezas MD Referring Family Medicine 01/08/22 documented as of this encounter
--- OUTSIDE RECORDS SUMMARY | 2024-07-20 16:29 | XMS_ITS | Encounter Summary ---
Demographics Address [address] [facility] [place] [address] Home Phone Mobile Phone Email Address Preferred Language ENG Marital Status Single Adventist Affiliation Unknown Race White Ethnic Group Not or Lati no Author Organization [facility] Address [address] [place] [address] Care Team Providers Care Meat Supervisor Name Role Phone Farhat Cabezas MD Primary Care Provider [phone] Farhat Cabezas MD Unavailable [phone] Source Comments In the event this information is protected by the Federal Confidentiality of Alcohol and Drug AbusePatient Records regulations: The Federal rules restrict any use of the information to criminally investigate or prosecute any alcohol or drug abuse patient.[facility] Encounter Details Date Type Department Care Team (Late st Contact Info) Description 04/14/2023 Get Medical Advice Endocrinology [address] [place] [address] Vinicius Márquez, WELFARE ELIGIBILITY WORKER.DOCUMENT PREPARER MICROFILMING [address] [place] [address] PAIN POST EATING, VOMITTING Social History Tobacco Use Types Packs/Day Years [...] is lower risk 2 12/21/2022 Data from: https://www.neighborhoodatlas.medicine.[facility]/. Last address used for calculation [...] 08/30/2024 9:30 AM EDT [facility] Endocrinology [address] [place] [address] Greg Nina APRN.DOCUMENT PREPARER MICROFILMING [address] [place], [place] [phone] diabetes follow up with me in 3 months virtually 11/20/2024 1:00 PM EDT [facility] Endocrinology [address] [place] [address] Valdez Suarez MD [address] [place] [address] [address] [place], [place] 3398[address] follow up in 6 months documented as of this encounter Visit Diagnoses Not on filedocumented in this encounter Care Teams Meat Supervisor Relationship Specialty Start Date End Date Farhat Cabezas MD PCP - General Family Medicine 01/13/11 Farhat Cabezas MD Referring Family Medicine 01/08/22 documented as of this encounter
--- OUTSIDE RECORDS SUMMARY | 2024-07-20 16:29 | XMS_ITS | Encounter Summary ---
Demographics Address [address] [place] [address] Home Phone Mobile Phone Email Address Preferred Language ENG Marital Status Single Yarsani Affiliation Unknown Race White Ethnic Group Not or Lati no Author Organization [facility] Address [address] [place] [address] Care Team Providers Care Remote Sensing Engineer Name Role Phone Farhat Cabezas MD Primary Care Provider [phone] Farhat Cabezas MD Unavailable [phone] Source Comments In the event this information is protected by the Federal Confidentiality of Alcohol and Drug AbusePatient Records regulations: The Federal rules restrict any use of the information to criminally investigate or prosecute any alcohol or drug abuse patient.[facility] Encounter Details Date Type Department Care Team (Late st Contact Info) Description 03/24/2023 Patient Msg Endocrinology [address] [place] [address] [place] [address] [place] [address] Resouces Social History Tobacco Use Types Packs/Day Years [...] is lower risk 2 12/21/2022 Data from: https://www.neighborhoodatlas.medicine.[facility]/. Last address used for calculation [address] [...] 08/30/2024 9:30 AM EDT [facility] [address] [place] [address] Greg Nina APRN.PICK UP AND DELIVERY DRIVER [address] [place] [address] diabetes follow up with me in 3 months virtually 11/20/2024 1:00 PM EDT [facility]ocrinology [address] [place] [address] Valdez Suarez MD [address] [place] [address] [place] [address] follow up in 6 months documented as of this encounter Visit Diagnoses Not on filedocumented in this encounter Care Teams Remote Sensing Engineer Relationship Specialty Start Date End Date Farhat Cabezas MD PCP - General Family Medicine 01/13/11 Farhat Cabezas MD Referring Family Medicine 01/08/22 documented as of this encounter
--- OUTSIDE RECORDS SUMMARY | 2024-07-20 16:29 | XMS_ITS | Encounter Summary ---
Demographics Address [address] [facility] [place] [address] Home Phone Mobile Phone Email Address Preferred Language ENG Marital Status Single Holiness Affiliation Unknown Race White Ethnic Group Not or Lati no Author Organization [facility] Address [address] [place] [address] Care Team Providers Care Refractory Furnace Designer Name Role Phone Farhat Cabezas MD Primary Care Provider [phone] Farhat Cabezas MD Unavailable [phone] Source Comments In the event this information is protected by the Federal Confidentiality of Alcohol and Drug AbusePatient Records regulations: The Federal rules restrict any use of the information to criminally investigate or prosecute any alcohol or drug abuse patient.[facility] Encounter Details Date Type Department Care Team (Late st Contact Info) Description 04/05/2023 Patient Msg Endocrinology [address] [place] [address] Provider, Ccf endocrine dietitian visit rescheduled Social History Tobacco Use Types Packs/Day Years [...] is lower risk 2 12/21/2022 Data from: https://www.neighborhoodatlas.[facility]/. Last address used for calculation [address] [...] of Assessment Author No 12/14/2016 12:43 PM Moan Dubose (Rn) (Hist), RN * Because of [...] 08/30/2024 9:30 AM EDT [facility] [address] [place] [address] Greg Nina APRN.COMMERCIAL SUBCONTRACTOR [address] [place] [address] diabetes follow up with me in 3 months virtually 11/20/2024 1:00 PM EDT [facility] [address] [place] [address] Valdez Suarez MD [address] [place] [address] [address] [place], [place] [address] follow up in 6 months documented as of this encounter Visit Diagnoses Not on filedocumented in this encounter Care Teams Refractory Furnace Designer Relationship Specialty Start Date End Date Farhat Cabezas MD PCP - General Family Medicine 01/13/11 Farhat Cabezas MD Referring Family Medicine 01/08/22 documented as of this encounter
--- OUTSIDE RECORDS SUMMARY | 2024-07-20 16:29 | XMS_ITS | Encounter Summary ---
Demographics Address [address] [facility] [place] [address] Home Phone Mobile Phone Email Address Preferred Language ENG Marital Status Single Restoration Affiliation Unknown Race White Ethnic Group Not or Lati no Author Organization [facility] Address [address] [place] [address] Care Team Providers Care Engineer Sergeant Name Role Phone Farhat Cabezas MD Primary Care Provider [phone] Farhat Cabezas MD Unavailable [phone] Source Comments In the event this information is protected by the Federal Confidentiality of Alcohol and Drug AbusePatient Records regulations: The Federal rules restrict any use of the information to criminally investigate or prosecute any alcohol or drug abuse patient.[facility] Encounter Details Date Type Department Care Team (Late st Contact Info) Description 10/25/2020 [address] [facility] [address] [place], [place] [id number] Provider, Ccf Referral- WELLNESS CONSULT Social History [...] N ot on file 01/16/2020 Data from: https://www.neighborhoodatlas.medicine.[facility].edu/. Last address used for calculation Not [...] Contact Info) Description 08/30/2024 9:30 AM EDT [facility] Endocrinology [address] [place] [address] Greg Nina APRN.BI ANALYST [address] [place] [address] diabetes follow up with me in 3 months virtually 11/20/2024 1:00 PM EDT [facility] Endocrinology [address] [place] [address] Valdez Suarez MD [address] [place] [address] [place] [address] follow up in 6 months documented as of this encounter Visit Diagnoses Not on filedocumented in this encounter Care Teams Engineer Sergeant Relationship Specialty Start Date End Date Farhat Cabezas MD PCP - General Family Medicine 01/13/11 Farhat Cabezas MD Referring Family Medicine 01/08/22 documented as of this encounter
--- OUTSIDE RECORDS SUMMARY | 2024-07-20 16:29 | XMS_ITS | Encounter Summary ---
Demographics Address [address] [place] [address] Home Phone Mobile Phone Email Address Preferred Language ENG Marital Status Single Adventist Affiliation Unknown Race White Ethnic Group Not or Lati no Author Organization [facility] Address [address] [place] [address] Care Team Providers Care Carbon Coater Machine Operator Name Role Phone Farhat Cabezas MD Primary Care Provider [phone] Farhat Cabezas MD Unavailable [phone] Source Comments In the event this information is protected by the Federal Confidentiality of Alcohol and Drug AbusePatient Records regulations: The Federal rules restrict any use of the information to criminally investigate or prosecute any alcohol or drug abuse patient.[facility] Encounter Details Date Type Department Care Team (Late st Contact Info) Description 02/19/2023 Patient Msg Endocrinology [address] [place] [address] [place] [address] [place] [address] Financial Resources Social History Tobacco Use Types Packs/Day [...] is lower risk 2 12/21/2022 Data from: https://www.neighborhoodatlas.[facility]/. Last address used for calculation [address] [...] 08/30/2024 9:30 AM EDT [facility] Endocrinology [address] [place] [address] Greg Nina APRN.BOTTLE BLOWER [address] [place] [address] diabetes follow up with me in 3 months virtually 11/20/2024 1:00 PM EDT [facility] [address] [place] [address] Valdez Suarez MD [address] [place] [address] [place] [address] follow up in 6 months documented as of this encounter Visit Diagnoses Not on filedocumented in this encounter Care Teams Carbon Coater Machine Operator Relationship Specialty Start Date End Date Farhat Cabezas MD PCP - General Family Medicine 01/13/11 Farhat Cabezas MD Referring Family Medicine 01/08/22 documented as of this encounter
--- OUTSIDE RECORDS SUMMARY | 2024-07-20 16:29 | XMS_ITS | Encounter Summary ---
Demographics Address [address] [address] Home Phone Mobile Phone Email Address Preferred Language ENG Marital Status Single Oriental Orthodox Affiliation Unknown Race White Ethnic Group Not or Lati no Author Organization [facility] Address [address] [place] [address] Care Team Providers Care Technical Testing Engineer Name Role Phone Farhat Cabezas MD Primary Care Provider [phone] Farhat Cabezas MD Unavailable [phone] Source Comments In the event this information is protected by the Federal Confidentiality of Alcohol and Drug AbusePatient Records regulations: The Federal rules restrict any use of the information to criminally investigate or prosecute any alcohol or drug abuse patient.[facility] Encounter Details Date Type Department Care Team (Late st Contact Info) Description 04/16/2023 Patient Msg Edwin Preciado [facility] Physical Therapy [address] [place], [place] [id number] [place] [address] [place], [place] [phone] Appointment Request Social History Tobacco Use Types [...] is lower risk 2 12/21/2022 Data from: https://www.neighborhoodatlas.[facility]/. Last address used for calculation [address] 12/21/2022 Comments No Sex and Gender Information [...] Contact Info) Description 08/30/2024 9:30 AM EDT [facility] Endocrinology [address] [place] [address] Greg Nina APRN.HOT PLATE PLYWOOD PRESS OFFBEARER [address] [place], [place] [address] diabetes follow up with me in 3 months virtually 11/20/2024 1:00 PM EDT [facility] Endocrinology [address] [place] [address] Valdez Suarez MD [address] [place] [address] [address] [place], [place] [address] follow up in 6 months documented as of this encounter Visit Diagnoses Not on filedocumented in this encounter Care Teams Technical Testing Engineer Relationship Specialty Start Date End Date Farhat Cabezas MD PCP - General Family Medicine 01/13/11 Farhat Cabezas MD Referring Family Medicine 01/08/22 documented as of this encounter
--- OUTSIDE RECORDS SUMMARY | 2024-07-20 16:29 | XMS_ITS | Encounter Summary ---
Demographics Address [address] [facility] [place] [address] Home Phone Mobile Phone Email Address Preferred Language ENG Marital Status Single Zoroastrian Affiliation Unknown Race White Ethnic Group Not or Lati no Author Organization [facility] Address [address] [place] [address] Care Team Providers Care Care Specialist Name Role Phone Farhat Cabezas MD Primary Care Provider [phone] Farhat Cabezas MD Unavailable [phone] Source Comments In the event this information is protected by the Federal Confidentiality of Alcohol and Drug AbusePatient Records regulations: The Federal rules restrict any use of the information to criminally investigate or prosecute any alcohol or drug abuse patient.[facility] Encounter Details Date Type Department Care Team (Late st Contact Info) Description 09/16/2022 Patient Msg CB/Gynecology [address] [place] [address] Provider, Ccf Reschedule appt. Social History Tobacco Use Types Packs/Day Years [...] is lower risk 4 06/11/2022 Data from: https://www.neighborhoodatlas.[facility]/. Last address used for calculation [address] 06/11/2022 Comments No Sex and Gender [...] 08/30/2024 9:30 AM EDT [facility] [address] [place] [address] Greg Nina APRN.SECOND FLOOR OPERATOR [address] [place] [address] diabetes follow up with me in 3 months virtually 11/20/2024 1:00 PM EDT [facility] [address] [place] [address] Valdez Suarez MD [address] [place] [address] [place], [place] [address] follow up in 6 months documented as of this encounter Visit Diagnoses Not on filedocumented in this encounter Care Teams Care Specialist Relationship Specialty Start Date End Date Farhat Cabezas MD PCP - General Family Medicine 01/13/11 Farhat Cabezas MD Referring Family Medicine 01/08/22 documented as of this encounter
--- OUTSIDE RECORDS SUMMARY | 2024-07-20 16:29 | XMS_ITS | Encounter Summary ---
Demographics Address [address] [facility] [place] [address] Home Phone Mobile Phone Email Address Preferred Language ENG Marital Status Single Yazdanism Affiliation Unknown Race White Ethnic Group Not or Lati no Author Organization [facility] Address [address] [place] [address] Care Team Providers Care Carbide Operator Name Role Phone Farhat Cabezas MD Primary Care Provider [phone] Farhat Cabezas MD Unavailable Source Comments In the event this information is protected by the Federal Confidentiality of Alcohol and Drug AbusePatient Records regulations: The Federal rules restrict any use of the information to criminally investigate or prosecute any alcohol or drug abuse patient.[facility] Encounter Details Date Type Department Care Team (Late st Contact Info) Description 04/19/2023 Patient Msg Orthopaedics [address] [place], [place] 3835[address] Provider, Ccpiero Saba Appointment Social History Tobacco Use Types Packs/Day [...] is lower risk 2 12/21/2022 Data from: https://www.neighborhoodatlas.[facility]/. Last address used for calculation [address] 12/21/2022 Comments No Sex and Gender [...] Description 08/30/2024 9:30 AM EDT [facility] Endocrinology [address] [place] [address] Greg Nina APRN.CELL TESTER [address] [place] [address] diabetes follow up with me in 3 months virtually 11/20/2024 1:00 PM EDT [facility] Endocrinology [address] [place] [address] Valdez Suarez MD [address] [place] [address] [place] [address] follow up in 6 months documented as of this encounter Visit Diagnoses Not on filedocumented in this encounter Care Teams Carbide Operator Relationship Specialty Start Date End Date Farhat Cabezas MD PCP - General Family Medicine 01/13/11 Farhat Cabezas MD Referring Family Medicine 01/08/22 documented as of this encounter
--- OUTSIDE RECORDS SUMMARY | 2024-07-20 16:29 | XMS_ITS | Encounter Summary ---
Demographics Address [address] [place] [address] Home Phone Mobile Phone Email Address Preferred Language ENG Marital Status Single Confucianism Affiliation Unknown Race White Ethnic Group Not or Lati no Author Organization [facility] Address [address] [place] [address] Care Team Providers Care Paratransit Driver Name Role Phone Farhat Cabezas MD Primary Care Provider [phone] Farhat Cabezas MD Unavailable [phone] Source Comments In the event this information is protected by the Federal Confidentiality of Alcohol and Drug AbusePatient Records regulations: The Federal rules restrict any use of the information to criminally investigate or prosecute any alcohol or drug abuse patient.[facility] Encounter Details Date Type Department Care Team (Late st Contact Info) Description 02/12/2023 Patient Msg Endocrinology [address] [place] [address] [place] [address] [place], [place] [phone] Crisis Lif[facility] Social History Tobacco Use Types Packs/Day Years [...] is lower risk 2 12/21/2022 Data from: https://www.neighborhoodatlas.medicine.[facility]/. Last address used for calculation [...] 08/30/2024 9:30 AM EDT [facility] [address] [place] [address] Greg Nina APRN.DOORMAKER [address] [place] [address] diabetes follow up with me in 3 months virtually 11/20/2024 1:00 PM EDT [facility] Endocrinology [address] [place] [address] Valdez Suarez MD [address] [place] [address] [place] [address] follow up in 6 months documented as of this encounter Visit Diagnoses Not on filedocumented in this encounter Care Teams Paratransit Driver Relationship Specialty Start Date End Date Farhat Cabezas MD PCP - General Family Medicine 01/13/11 Farhat Cabezas MD Referring Family Medicine 01/08/22 documented as of this encounter
--- OUTSIDE RECORDS SUMMARY | 2024-07-20 16:29 | XMS_ITS | Encounter Summary ---
Demographics Address [address] [place] [address] Home Phone Mobile Phone Email Address Preferred Language ENG Marital Status Single Adventist Affiliation Unknown Race White Ethnic Group Not or Lati no Author Organization [facility] Address [address] [place] [address] Care Team Providers Care Plumbing Designer Name Role Phone Farhat Cabezas MD Primary Care Provider [phone] Farhat Cabezas MD Unavailable [phone] Source Comments In the event this information is protected by the Federal Confidentiality of Alcohol and Drug AbusePatient Records regulations: The Federal rules restrict any use of the information to criminally investigate or prosecute any alcohol or drug abuse patient.[facility] Encounter Details Date Type Department Care Team (Late st Contact Info) Description 11/27/2022 Patient Msg Neurology [address] [place] [address] [place] [address] [place] [address] MRI Social History Tobacco Use Types Packs/Day [...] is lower risk 4 06/11/2022 Data from: https://www.neighborhoodatlas.medicine.[facility]/. Last address used for calculation [address] 06/11/2022 Comments No Sex and Gender [...] Contact Info) Description 08/30/2024 9:30 AM EDT [facility] Endocrinology [address] [place] [address] Greg Nina APRN.PASSENGER SERVICE AGENT [address] [place], [place] 5849[address] diabetes follow up with me in 3 months virtually 11/20/2024 1:00 PM EDT [facility] Endocrinology [address] [place] [address] Valdez Suarez MD [address] [place] [address] [address] [place], [place] [address] follow up in 6 months documented as of this encounter Visit Diagnoses Not on filedocumented in this encounter Care Teams Plumbing Designer Relationship Specialty Start Date End Date Farhat Cabezas MD PCP - General Family Medicine 01/13/11 Farhat Cabezas MD Referring Family Medicine 01/08/22 documented as of this encounter
--- OUTSIDE RECORDS SUMMARY | 2024-07-20 16:30 | XMS_ITS | Encounter Summary ---
Demographics Address [address] [place] [address] Home Phone Mobile Phone Email Address Preferred Language ENG Marital Status Single Denominational Affiliation Unknown Race White Ethnic Group Not or Lati no Author Organization [facility] Address [address] [place] [address] Care Team Providers Care Medicaid Billing Specialist Name Role Phone Farhat Cabezas MD Primary Care Provider [phone] Farhat Cabezas MD Unavailable [phone] Source Comments In the event this information is protected by the Federal Confidentiality of Alcohol and Drug AbusePatient Records regulations: The Federal rules restrict any use of the information to criminally investigate or prosecute any alcohol or drug abuse patient.[facility] Encounter Details Date Type Department Care Team (Late st Contact Info) Description 08/12/2020 Patient g BMI [facility] [address] [facility] [place] [place] [address] Rachel Yi MD [address] [place] [address] Request an Appointment Social History Tobacco Use [...] N ot on file 01/16/2020 Data from: https://www.neighborhoodatlas.[facility]/. Last address used for calculation Not on [...] have Coronavirus / COVID-19? Unable to assess 08/15/2020 3:15 PM EDT documented as of this encounter [...] Contact Info) Description 08/30/2024 9:30 AM EDT [facility] Endocrinology [address] [place] [address] Greg Nina, TAX COLLECTION COORDINATOR.[employer] SALES REPRESENTATIVE [address] [place], [place] [phone] diabetes follow up with me in 3 months virtually 11/20/2024 1:00 PM EDT [facility] Endocrinology [address] [place] [address] Valdez Suarez MD [address] [place] [address] [place] [address] follow up in 6 months documented as of this encounter Visit Diagnoses Not on filedocumented in this encounter Care Teams Medicaid Billing Specialist Relationship Specialty Start Date End Date Farhat Cabezas MD PCP - General Family Medicine 01/13/11 Farhat Cabezas MD Referring Family Medicine 01/08/22 documented as of this encounter
--- OUTSIDE RECORDS SUMMARY | 2024-07-20 16:30 | XMS_ITS | Encounter Summary ---
Demographics Address [address] [facility] [place] [address] Home Phone Mobile Phone Email Address Preferred Language ENG Marital Status Single Restorationism Affiliation Unknown Race White Ethnic Group Not or Lati no Author Organization [facility] Address [address] [place] [address] Care Team Providers Care Furnace Mason Name Role Phone Farhat Cabezas MD Primary Care Provider [phone] Farhat Cabezas MD Unavailable [phone] Source Comments In the event this information is protected by the Federal Confidentiality of Alcohol and Drug AbusePatient Records regulations: The Federal rules restrict any use of the information to criminally investigate or prosecute any alcohol or drug abuse patient.[facility] Encounter Details Date Type Department Care Team (Late st Contact Info) Description 10/05/2019 Patient Msg Family Medicine [address] [place], [place] 83[address] Provider, Ccf Appointments Requested Social History Tobacco Use Types Packs/Day Years [...] have Coronavirus / COVID-19? Unable to assess 10/05/2019 9:16 AM EDT documented as of this encounter [...] 08/30/2024 9:30 AM EDT [facility] Endocrinology [address] [place] [address] Greg Nina APRN.EMBALMER/FUNERAL DIRECTOR [address] [place] [address] diabetes follow up with me in 3 months virtually 11/20/2024 1:00 PM EDT [facility] Endocrinology [address] [place] [address] Valdez Suarez MD [address] [place] [address] [address] [place], [place] [address] follow up in 6 months documented as of this encounter Visit Diagnoses Not on filedocumented in this encounter Care Teams Furnace Mason Relationship Specialty Start Date End Date Farhat Cabezas MD PCP - General Family Medicine 01/13/11 Farhat Cabezas MD Referring Family Medicine 01/08/22 documented as of this encounter
--- OUTSIDE RECORDS SUMMARY | 2024-07-20 16:30 | XMS_ITS | Encounter Summary ---
Demographics Address [address] [facility] [place] [address] Home Phone Mobile Phone Email Address Preferred Language ENG Marital Status Single Druze Affiliation Unknown Race White Ethnic Group Not or Lati no Author Organization [facility] Address [address] [place] [address] Care Team Providers Care Group President Name Role Phone Farhat Cabezas MD Primary Care Provider [phone] Farhat Cabezas MD Unavailable [phone] Source Comments In the event this information is protected by the Federal Confidentiality of Alcohol and Drug AbusePatient Records regulations: The Federal rules restrict any use of the information to criminally investigate or prosecute any alcohol or drug abuse patient.[facility] Encounter Details Date Type Department Care Team (Late st Contact Info) Description 09/23/2021 Patient [facility] [address] [place] [phone] Provider, Ccf A Message from the [facility] Social History Tobacco Use Types Packs/Day Years Used Date Smoking Tobacco: Never Smokeless Tobacco: Never Alcohol Use Standard Drinks/Week Comments Not Currently 0 (1 standard drink = 0.6 oz pur e alcohol) Social PHQ-2 Answer Date Recorded PHQ-2 score 4 09/10/2021 Area Deprivation Index Answer Date Rod rded National Score (1-100), lower number is lower ri sk 59 07/19/2021 State Score (1-10), lower number is lower risk N ot on file 07/19/2021 Data from: https://www.neighborhoodatlas.[facility]/. Last address used for calculation [address] [facility] 07/19/2021 Comments No Sex and Gender Information Value Date Recorded Sex Assigned at Not on file Legal Sex Female 9:47 AM EST Gender Identity Not on file Sexual Orientation Not on file COVID-19 Exposure Response Date Recorded In the last 10 days, have yo u been in contact with someone who was confirmed or suspected to have Coronavirus/COVID-19? No / Unsure 09/19/2021 11:25 AM EDT documented as of this encounter [...] Description 08/30/2024 9:30 AM EDT [facility] Endocrinology [address] [place] [address] Greg Nina APRN.DEV TECHNICAL MGR [address] [place] [address] diabetes follow up with me in 3 months virtually 11/20/2024 1:00 PM EDT [facility] [address] [place] [phone] Valdez Suarez MD [address] [place] [address] [address] [place], [place] [phone] follow up in 6 months documented as of this encounter Visit Diagnoses Not on filedocumented in this encounter Care Teams Group President Relationship Specialty Start Date End Date Farhat Cabezas MD PCP - General Family Medicine 01/13/11 Farhat Cabezas MD Referring Family Medicine 01/08/22 documented as of this encounter
--- OUTSIDE RECORDS SUMMARY | 2024-07-20 16:30 | XMS_ITS | Encounter Summary ---
Demographics Address [address] [address] Home Phone Mobile Phone Email Address Preferred Language ENG Marital Status Single Tenriism Affiliation Unknown Race White Ethnic Group Not or Lati no Author Organization [facility] Address [facility] [place] [address] Care Team Providers Care Sole Rounding Machine Operator Name Role Phone Farhat Cabezas MD Primary Care Provider [phone] Farhat Cabezas MD Unavailable [phone] Source Comments In the event this information is protected by the Federal Confidentiality of Alcohol and Drug AbusePatient Records regulations: The Federal rules restrict any use of the information to criminally investigate or prosecute any alcohol or drug abuse patient.[facility] Encounter Details Date Type Department Care Team (Late st Contact Info) Description 03/31/2022 Patient Msg Neurology [address] [place], [place] [id number] Provider, Ccf refills Social History Tobacco Use Types Packs/Day Years Used Date Smoking Tobacco: Never Smokeless Tobacco: Never Alcohol Use Standard Drinks/Week Comments Not Currently 0 (1 standard drink = 0.6 oz pur e alcohol) Social PHQ-2 Answer Date Recorded PHQ-2 score 2 01/08/2022 Area Deprivation Index Answer Date Rod rded National Score (1-100), lower number is lower ri sk 59 02/25/2022 State Score (1-10), lower number is lower risk N ot on file 02/25/2022 Data from: https://www.neighborhoodatlas.[facility]/. Last address used for calculation [address] 02/25/2022 Comments No Sex and Gender Information Value [...] Contact Info) Description 08/30/2024 9:30 AM EDT [facility] Endocrinology [address] [place] [phone] Greg Nina APRN.ELECTRIC LINEMAN [address] [place] [address] diabetes follow up with me in 3 months virtually 11/20/2024 1:00 PM EDT [facility] Endocrinology [address] [place] [address] Valdez Suarez MD [address] [place] [address] [address] [place], [place] [phone] follow up in 6 months documented as of this encounter Visit Diagnoses Not on filedocumented in this encounter Care Teams Sole Rounding Machine Operator Relationship Specialty Start Date End Date Farhat Cabezas MD PCP - General Family Medicine 01/13/11 Farhat Cabezas MD Referring Family Medicine 01/08/22 documented as of this encounter
--- OUTSIDE RECORDS SUMMARY | 2024-07-20 16:30 | XMS_ITS | Encounter Summary ---
Demographics Address [address] [place] [address] Home Phone Mobile Phone Email Address Preferred Language ENG Marital Status Single Jewish Affiliation Unknown Race White Ethnic Group Not or Lati no Author Organization [facility] Address [address] [place] [address] Care Team Providers Care Caregivers Homecare Name Role Phone Farhat Cabezas MD Primary Care Provider [phone] Farhat Cabezas MD Unavailable [phone] Source Comments In the event this information is protected by the Federal Confidentiality of Alcohol and Drug AbusePatient Records regulations: The Federal rules restrict any use of the information to criminally investigate or prosecute any alcohol or drug abuse patient.[facility] Encounter Details Date Type Department Care Team (Late st Contact Info) Description 04/18/2020 Get Medical Advice [facility] RE[facility] [address] [place], [place] [phone] Rachel Yi MD [address] [place] [address] RE: Test Result Question Social History Tobacco Use Types Packs/Day [...] N ot on file 01/16/2020 Data from: https://www.neighborhoodatlas.[facility]/. Last address used for calculation Not [...] have Coronavirus / COVID-19? No / Unsure 04/09/2020 4:51 PM EST documented as of this encounter Functional [...] Contact Info) Description 08/30/2024 9:30 AM EDT [facility] [address] [place] [phone] Greg Nina APRN.PERIODICALS CLERK [address] [place] [address] diabetes follow up with me in 3 months virtually 11/20/2024 1:00 PM EDT [facility] [address] [place] [phone] Valdez Suarez MD [address] [place] [address] [address] [place], [place] [phone] follow up in 6 months documented as of this encounter Visit Diagnoses Not on filedocumented in this encounter Care Teams Caregivers Homecare Relationship Specialty Start Date End Date Farhat Cabezas MD PCP - General Family Medicine 01/13/11 Farhat Cabezas MD Referring Family Medicine 01/08/22 documented as of this encounter
--- OUTSIDE RECORDS SUMMARY | 2024-07-20 16:30 | XMS_ITS | Encounter Summary ---
Demographics Address [address] [place] [address] Home Phone Mobile Phone Email Address Preferred Language ENG Marital Status Single Sikhism Affiliation Unknown Race White Ethnic Group Not or Lati no Author Organization [facility] Address [address] [place] [address] Care Team Providers Care Shank Cementer Hand Name Role Phone Farhat Cabezas MD Primary Care Provider [phone] Farhat Cabezas MD Unavailable [phone] Source Comments In the event this information is protected by the Federal Confidentiality of Alcohol and Drug AbusePatient Records regulations: The Federal rules restrict any use of the information to criminally investigate or prosecute any alcohol or drug abuse patient.[facility] Encounter Details Date Type Department Care Team (Late st Contact Info) Description 08/06/2020 Abstract General Surgery [address] [place] [address] Rachel Yi MD [address] [place] [address] Social History Tobacco Use Types Packs/Day Years [...] N ot on file 01/16/2020 Data from: https://www.neighborhoodatlas.[facility]/. Last address used for calculation Not [...] have Coronavirus / COVID-19? Unable to assess 07/31/2020 3:50 PM EDT documented as of this encounter [...] Contact Info) Description 08/30/2024 9:30 AM EDT [facility] Endocrinology [address] [place] [address] Greg Nina APRN.TRANSVERSE ABDOMINAL MUSCLE SURGEON [address] [place] [address] diabetes follow up with me in 3 months virtually 11/20/2024 1:00 PM EDT [facility] Endocrinology [address] [place] [phone] Valdez Suarez MD [address] [place] [address] [address] [place], [place] [phone] follow up in 6 months documented as of this encounter Visit Diagnoses Not on filedocumented in this encounter Care Teams Shank Cementer Hand Relationship Specialty Start Date End Date Farhat Cabezas MD PCP - General Family Medicine 01/13/11 Farhat Cabezas MD Referring Family Medicine 01/08/22 documented as of this encounter
--- OUTSIDE RECORDS SUMMARY | 2024-07-20 16:30 | XMS_ITS | Encounter Summary ---
Demographics Address [address] [facility] [place] [address] Home Phone Mobile Phone Email Address Preferred Language ENG Marital Status Single Baptist Affiliation Unknown Race White Ethnic Group Not or Lati no Author Organization [facility] Address [address] [place] [address] Care Team Providers Care Unix Systems Administrator Name Role Phone Farhat Cabezas MD Primary Care Provider [phone] Farhat Cabezas MD Unavailable [phone] Source Comments In the event this information is protected by the Federal Confidentiality of Alcohol and Drug AbusePatient Records regulations: The Federal rules restrict any use of the information to criminally investigate or prosecute any alcohol or drug abuse patient.[facility] Encounter Details Date Type Department Care Team (Late st Contact Info) Description 12/18/2019 Get Medical Advice General Surgery BMI PSYL [address] [place] [address] Graciela Hoyt, PhD [address] [place] [phone] RE: Visit Follow Up Question Social History [...] Contact Info) Description 08/30/2024 9:30 AM EDT [facility] Endocrinology [address] [place] [address] Greg Nina APRN.FLEECE TIER [address] [place] [address] diabetes follow up with me in 3 months virtually 11/20/2024 1:00 PM EDT [facility] Endocrinology [address] [place] [address] Valdez Suarez MD [address] [place] [address] [address] [place], [place] [phone] follow up in 6 months documented as of this encounter Visit Diagnoses Not on filedocumented in this encounter Care Teams Unix Systems Administrator Relationship Specialty Start Date End Date Farhat Cabezas MD PCP - General Family Medicine 01/13/11 Farhat Cabezas MD Referring Family Medicine 01/08/22 documented as of this encounter
--- OUTSIDE RECORDS SUMMARY | 2024-07-20 16:30 | XMS_ITS | Encounter Summary ---
Demographics Address [address] [facility] [place] [address] Home Phone Mobile Phone Email Address Preferred Language ENG Marital Status Single Scientologist Affiliation Unknown Race White Ethnic Group Not or Lati no Author Organization [facility] Address [address] [place] [address] Care Team Providers Care Supervisor Shuttle Veneering Name Role Phone Farhat Cabezas MD Primary Care Provider [phone] Farhat Cabezas MD Unavailable [phone] Source Comments In the event this information is protected by the Federal Confidentiality of Alcohol and Drug AbusePatient Records regulations: The Federal rules restrict any use of the information to criminally investigate or prosecute any alcohol or drug abuse patient.[facility] Encounter Details Date Type Department Care Team (Late st Contact Info) Description 07/15/2020 Patient Msg General Surgery [address] [place] [address] Provider, Ccf Lab results Social History Tobacco Use Types Packs/Day Years [...] on file 01/16/2020 Data from: https://www.neighborhoodatlas.medicine.[facility].edu/. Last address used for calculation Not [...] have Coronavirus / COVID-19? No / Unsure 06/24/2020 3:35 PM EDT documented as of this encounter [...] AM EDT [facility] Endocrinology [address] [place] [phone] rGeg Nina APRN.COMMERCIAL LEASING MANAGER [address] [place] [address] diabetes follow up with me in 3 months virtually 11/20/2024 1:00 PM EDT [facility] Endocrinology [address] [place] [address] Valdez Suarez MD [address] [place] [address] [address] [place], [place] [phone] follow up in 6 months documented as of this encounter Visit Diagnoses Not on filedocumented in this encounter Care Teams Supervisor Shuttle Veneering Relationship Specialty Start Date End Date Farhat Cabezas MD PCP - General Family Medicine 01/13/11 Farhat Cabezas MD Referring Family Medicine 01/08/22 documented as of this encounter
--- OUTSIDE RECORDS SUMMARY | 2024-07-20 16:30 | XMS_ITS | Patient Health Record ---
Author Organization [facility] in [place] Address [address] [place] [address] Care Team Providers Care Drafter Detail Name Role Phone DAVEY PINEDA MD Primary Care Provider MARIBEL PINEDA Unavailable [phone] Davey Pineda Unavailable [phone] Adrienne Corbett Unavailable [phone] Allergies Allergen (clinical drug ingredient) Drug/Non Drug Allergy documented on EMR Reaction Allergy Type Onset Date Status metformin metFORMIN HCl stomach upset Drug Allergy Active ibuprofen Ibuprofen stomach upset Drug Allergy Act libertad Results Component Value Reference Range Notes CBC AUTO DIFF Reviewed date:04/05/2024 12:43:55 PM Interpretation: Performing Lab: Notes/Report: [facility] , White Blood Count 8.5 4.0-11.0 10 3/uL Red Blood Count 5.44 4.20-5.40 10 6/uL Hemoglobin 13.9 12.0-16.0 g/dL Hematocrit 44.6 36.0-48.0 % Mean Corpuscular Volume 82.0 81.0-99.0 fL Mean Corpuscular Hemoglobin 25.6 26.7-34.0 pg Mean Corpuscular HGB Conc 31.2 29.9-35.2 g/dL Red Cell Distribution Width 17.1 11.0-15.0 % Platelet Count 351 150-450 10 3/uL Mean Platelet Volume 10.6 9.5-13.5 fL Neutrophils Percent Auto 67.7 43.0-75.0 % Lymphocytes Percent Auto 21.3 20.5-60.0 % Monocytes Percent Auto 6.9 1.7-12.0 % Eosinophils Percent Auto 2.6 0.9-7.0 % Basophils Percent Auto 0.8 0.2-2.0 % Immature Granulocytes Pct Auto 0.7 0.0-0.5 % Neutrophils Absolute Auto 5.7 1.4-6.5 10 3/uL Lymphocytes Absolute Auto 1.8 1.2-3.8 10 3/uL Monocytes Absolute Auto 0.6 0.3-0.8 10 3/uL Eosinophils Absolute Auto 0.2 0.0-0.7 10 3/uL Basophils Absolute Auto 0.1 0.0-0.1 10 3/uL Immature Granulocytes Abs Auto 0.06 0.00-0.03 10 3/uL Performing Lab: see note ML - [facility] LB PROF 14(COMP METB) Reviewed date:04/05/2024 12:43:55 PM Interpretation: Performing Lab: Notes/Report: [facility] , Sodium 139 136-145 mmol/L Potassium 3.8 3.5-5.1 mmol/L Chloride 101 98-107 mmol/L Carbon Dioxide 26.3 21.0-32.0 mmol/L Anion Gap 15.5 Glucose 124 74-106 mg/dL Blood Urea Nitrogen 7.0 7.0-18.0 mg/dL Creatinine 1.25 0.55-1.02 mg/dL Estimated GFR ( Era 55 >=60 mL/mi n/1.73m 2 Estimated GFR (Non- Francia 45 >=60 mL/mi n/1.73m 2 BUN Creatinine Ratio 5.6 Calcium 9.3 8.5-10.1 mg/dL Bilirubin Total 0.5 0.2-1.0 mg/dL Aspartate Amino Transferase 24 15-37 U/L Alanine Aminotransferase 27 14-59 U/L Alkaline Phosphatase 315 46-116 U/L Total Protein 8.4 6.4-8.2 g/dL Albumin Level 4.0 3.4-5.0 g/dL Globulin 4.4 Albumin Globulin Ratio 0.9 Performing Lab: see note ML - [facility] LB UA (CLEAN or CATCH) COMMUNICATIONS ASSOCIATE or M ICRO IF IND. Reviewed date:04/05/2024 12:43:55 PM Interpretation: Performing Lab: Notes/Report: [facility] , Color Urine LT. YELLOW YELLOW Clarity Urine CLEAR CLEAR Specific Leslie Urine 1.015 1.005-1.025 pH Urine 6.0 5.0-9.0 Protein Urine NEGATIVE NEG/TRACE mg/dL Glucose Urine UA NEGATIVE NEGATIVE mg/dL Bilirubin Urine NEGATIVE NEGATIVE Ketones Urine NEGATIVE NEGATIVE mg/dL Blood Urine NEGATIVE NEGATIVE Nitrite Urine NEGATIVE NEGATIVE Urobilinogen Urine 1.0 0.2-1.0 EU/dL Leukocyte Esterase Urine NEGATIVE NEGATIVE Urine Microscopic Indicated NO Performing Lab: see note ML - [facility] LB Reason For Referral Diagnosis 1 Fracture of metatars al bone (S92.309A) Referral Organization [facility] Referring Provider First Name Davey Referring Provider Last Name Raulito [facility]erred Provider Romero Mueller Referred Provider Specialty Orthopedic S urgery Referral Priority Routine Diagnosis 1 Weakness (R53.1) Referral Organization [facility] Referring Provider First Name Davey Referring Provider Last Name Raulito Referring Provider Speciality [facility] kizzy Referred Provider [facility], Physical Therap y Referred Provider Specialty Physical The rapist Referral Priority Routine Medications Medication SIG (Take, Route, Frequency, Duration) Notes Start Date End Date Status BIPAP -- as directed Active Semaglutide 0.3 mg/0.25mL 0.3 mg/0.25 mL 0.25 mL Subcutaneous Once weekly for 30 days 05/23/2024 Active Protonix 40 MG 1 tablet Orally Once a day for 30 days 10/26/2023 Active Ventolin HFA 108 (90 Base) MCG/ACT 1 puff as needed Inhalation every 4 hrs for 30 days PRN Active Doxepin HCl 50 MG 1 capsule at bedtime Orally Once a day for 30 days 05/22/2024 Active valACYclovir HCl 500 MG 1 tablet Orally tid for 10 days 07/20/2024 Active chlordiazePOXIDE HCl 10 MG 1 capsule Orally tid PRN for 7 days needs to last a week 07/14/2024 Active Haloperidol 2 MG 1 tablet Orally thre e times daily for 30 days Active Ondansetron 4 MG 1 tablet on the tong ue and allow to dissolve Orally qid PRN 06/28/2024 Active Levothyroxine Sodium 75 MCG 1 tablet in the morning on an empty stomach Orally Once a day Active Cefdinir 300 MG 2 capsule Orally onc e a day for 10 days 07/20/2024 Active Promethazine HCl 25 MG 1 tablet as neede d Orally q6h for 30 days PRN 02/22/2023 Active Paxil 40 MG 1 tablet in the morn ing Orally Once a day for 30 days Active Social History Tobacco Use: Social History Observation Description Date Details (start date - stop date) Never Smoker NA - NA Tobacco Use/Smoking Question Answer Notes Patient is a nonsmoker Alcohol Screen (Audit-C) Question Answer Notes Did you have a drink containing alcohol in the p ast year? No Points 0 Interpretation Negative AUDIT-C (Standard) Question Answer Notes Did you have a drink containing alcohol in the p ast year? 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 Problem Hypoglycemia (219767871) Hypoglycemia, unspecified (E16.2) Active confirmed Problem Dehydration (86017741) Dehydration (E86.0) Active confirmed Problem Palpitations (69901918) Palpitations (R00.2) Active confirmed Problem History of cardiac catheterization (35000938760807) History of cardiac catheterization (V45.89) Active confirmed Problem Obesity (748969330) Obesity (E66.9) Active conf irmed Problem Anxiety (85701450) Anxiety (F41.9) Active confi rmed Problem Edema (85480386) Edema (R60.9) Active confirmed Problem History of cardiac catheterization (82972056724248) H/O cardiac catheterization (V45.89) Active confirmed Problem Anemia (447040742) Anemia (D64.9) Active confir med Problem Dyspnea (707578865) Dyspnea (R06.00) Active con firmed Problem Sleep apnea (96786327) Sleep apnea (G47.30) Active confirmed Problem CVA - Cerebrovascular accident (719930509) CVA (cerebral vascular accident) (I63.9) Active confirmed Problem Insomnia (793155241) Insomnia (G47.00) Active confirmed Problem Hiatal hernia (52424882) Hiatal hernia (K44.9) Active confirmed Problem Hip pain (78038664) Hip pain (M25.559) Active c onfirmed Problem Syncope (759794457) Syncope (R55) Active confir med Problem Vitamin D deficiency (59520070) Vitamin D deficiency (E55.9) Active confirmed Problem Alcohol abuse (80988707) Alcohol abuse (F10.10) Active confirmed Problem Generalized anxiety disorder (32873637) ESTRELLITA (generalized anxiety disorder) (F41.1) Active confirmed Problem Arthralgia (51436662) Arthralgia (M25.50) Active confirmed Problem Pain of right knee region (finding) (434161694872355) Knee pain, right (M25.561) Active confirmed Problem Dysmenorrhea (586137657) Dysmenorrhea (N94.6) Active confirmed Problem Acute bronchitis (31526913) Acute bronchitis (J20.9) Active confirmed Problem Paresthesia (50648279) Paresthesia (R20.2) Active confirmed Problem Dysphagia (24786614) Dysphagia (R13.10) Active confirmed Problem Acquired hypothyroidism (236165607) Acquired hypothyroidism (E03.9) Active confirmed Problem Cellulitis (688692391) Cellulitis (L03.90) Active confirmed Problem Plantar fasciitis (696214530) Plantar fasciitis (M72.2) Active confirmed Problem Esophageal stricture (60672730) Esophageal stricture (K22.2) Active confirmed Problem Skin sensation disturbance (00378558) Arm paresthesia, left (R20.2) Active confirmed Problem Dyshidrotic eczema (243393187) Dyshidrotic eczema (L30.1) Active confirmed Problem Diverticulitis of colon (696188139) Diverticulitis of colon (K57.32) Active confirmed Problem Menometrorrhagia (437191033) Menometrorrhagia (N92.1) Active confirmed Problem Type II diabetes mellitus without complication (718289070) Type 2 diabetes mellitus without complication (E11.9) Active confirmed Problem 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) Active confirmed Problem Chronic lymphocytic thyroiditis (72337809) Chronic lymphocytic thyroiditis (E06.3) Active confirmed Problem Suicidal ideation (2880967) Suicidal ideation (R45.851) Active confirmed Problem Gastro-esophageal reflux disease (524828290) Gastro-esophageal reflux disease (K21.9) Active confirmed Problem Fracture of metatarsal bone (948937848) Fracture of metatarsal bone (S92.309A) Active confirmed Problem Postprocedural states (454532134) Other specified postprocedural states (Z98.890) Active confirmed Problem Moderate dehydration (2634580895935) Dehydration, moderate (E86.0) Active confirmed Problem Follicular thyroid carcinoma (120092924) Follicular thyroid carcinoma (C73) Active confirmed Problem Diabetes mellitus (01450837) Diabetes mellitus (E11.9) Active confirmed Problem Ureteric stone (64519156) Calculus, ureteral (N20.1) Active confirmed Vital Signs Heart Rate 81 /min 07/20/2024 Temperature 99.5 degrees Fahrenheit 07/20/2024 Oximetry 99 % 07/20/2024 Blood pressure diastolic 82 mm Hg 07/20/2024 Height 62.5 in 07/20/2024 Blood pressure systolic 124 mm Hg 07/20/2024 Weight 265.8 lbs 07/20/2024 BMI 47.84 kg/m2 07/20/2024 Encounters Encounter Location Date Provider Diagnosis [facility] [address] [place] [address] 08/04/2023 MARIBEL [facility] [address] [place] [address] 08/24/2023 Davey [facility] [address] [place] [address] 09/08/2023 Davey Colemany [facility] [address] [place] [address] 09/23/2023 Davey Hoy Anemia D64.9 ; Weakness R53.1 and B12 deficiency E53.8 [facility] [address] [place] [address] 09/28/2023 Davey Hoy Fatigue R53.83 [facility] [address] [place] [address] 10/26/2023 Davey Pineda [facility] [address] [place] [address] 12/17/2023 Davey [facility] [address] [place] [address] 01/18/2024 Davey robert [facility] [address] [place] [address] 04/03/2024 Davey y [facility] [address] [facility] [place] [address] 04/03/2024 Davey Hoy [facility] [address] [facility] [place] [address] 05/23/2024 Davey Hoy [facility] [address] [facility] [place] [address] 05/23/2024 Davey y [facility] [address] [facility] [place] [address] 05/29/2024 Davey Hoy Palpitations R00.2 a nd Frequency of micturition R35.0 [facility] [address] [facility] [place] [address] 05/30/2024 Davey Hoy [facility] [address] [facility] [address] 05/30/2024 Davey Hoy [facility] [address] [facility] [place] [address] 06/01/2024 Davey Hoy Palpitations R00.2 [facility] [address] [facility] [place] [address] 06/01/2024 Davey Hoy Palpitations R00.2 [facility] [address] [facility] [place] [address] 06/05/2024 Davey Hoy [facility] [address] [facility] [place] [address] 06/06/2024 Davey Hoy Fracture of metatars al bone S92.309A [facility] [address] [facility] [place] [address] 06/07/2024 Davey Hoy Palpitations R00.2 [facility] [address] [facility] [place] [address] 06/19/2024 Davey Hoy Palpitations R00.2 [facility] [address] [facility] [place] [address] 06/28/2024 Davey Hoy Palpitations R00.2 [facility] [address] [place] [address] 07/04/2024 Davey Hoy [facility] [address] [place] [address] 07/05/2024 Davey Hoy Palpitations R00.2 [facility] [address] [place] [place] [address] 07/05/2024 Davey Hoy Palpitations R00.2 [facility] [address] [facility] [place] [address] 07/11/2024 Davey Hoy [facility] [address] [facility] [place] [address] 2024 Davey Hoy [facility] [address] [place] [address] 07/14/2024 Davey Hoy Palpitations R00.2 [facility] [address] [facility] [place] [address] 12/06/2023 Adrienne Aric Urine abnormality R82.90 ; Loose stools R19.5 and Wellness examination Z00.00 [facility] [address] [place] [address] 05/22/2024 Davey Hoy Palpitations R00.2 ; Insomnia G47.00 ; ESTRELLITA (generalized anxiety disorder) F41.1 and Right foot pain M79.671 [address] [place] [address] 07/20/2024 Davey Hoy Anemia D64.9 ; Vitam in D deficiency E55.9 ; 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 ; Acute bronchitis J20.9 and Weakness R53.1 Assessments Encounter Date Diagnosis (ICD Code) Assessment Notes Treatment Notes Treatment Clinical Notes Section Notes 05/22/2024 Palpitations (ICD-10 - R00.2) 05/22/2024 Insomnia (ICD-10 - G47.00) 07/20/2024 Anemia (ICD-10 - D64.9) 07/20/2024 Vitamin D deficiency (ICD-10 - E55.9) 09/23/2023 Anemia (ICD-10 - D64.9) 09/23/2023 Weakness (ICD-10 - R53.1) 06/01/2024 Palpitations (ICD-10 - R00.2) 06/01/2024 Palpitations (ICD-10 - R00.2) 06/06/2024 Fracture of metatarsal bone (ICD-10 - S92.309A) 06/07/2024 Palpitations (ICD-10 - R00.2) 06/19/2024 Palpitations (ICD-10 - R00.2) 06/28/2024 Palpitations (ICD-10 - R00.2) 07/05/2024 Palpitations (ICD-10 - R00.2) 07/05/2024 Palpitations (ICD-10 - R00.2) 07/14/2024 Palpitations (ICD-10 - R00.2) 12/06/2023 Urine abnormality (ICD-10 - R82.90) 12/06/2023 Loose stools (ICD-10 - R19.5) 09/28/2023 Fatigue (ICD-10 - R53.83) 05/29/2024 Palpitations (ICD-10 - R00.2) 05/29/2024 Frequency of micturition (ICD-10 - R35.0) 12/06/2023 Wellness examination (ICD-10 - Z00.00) requesting labs 09/23/2023 B12 deficiency (ICD-10 - E53.8) 07/20/2024 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) 05/22/2024 ESTRELLITA (generalized anxiety disorder) (ICD-10 - F41.1) 05/22/2024 Right foot pain (ICD-10 - M79.671) 07/20/2024 Acute bronchitis (ICD-10 - J20.9) 07/20/2024 Weakness (ICD-10 - R53.1) Plan Of Treatment Pending Test Test Name Order Date Exercise Stress Nuclear Test 06/28/2023 CMP (COMPLETE METABOLIC PANEL) 4 CMP (COMPLETE METABOLIC PANEL) CMP (COMPLETE METABOLIC PANEL) UA (URINALYSIS, COMPLETE) 12/06/2023 VITAMIN B6 (PRIDOXINE) 09/28/2023 CULTURE, STOOL 12/06/2023 CALCITONIN 06/17/2023 HEMOGLOBIN A1C (GLYCO) 12/06/2023 INSULIN, TOTAL 12/06/2023 IRON, TOTAL 07/20/2024 LIPID PANEL (CHOL/TRIG/HDL/LDL) 12/06/19 CBC WITH DIFF 12/06/2023 CBC WITH DIFF 06/07/2023 PT (PROTIME), INR AND PTT (PT/INR AND PT T) 03/31/2023 PT (PROTIME), INR AND PTT (PT/INR AND PT T) 05/13/2023 VITAMIN D, 25 LEVEL (TOTAL) 07/20/2024 MRI Brain w/wo contrast * 06/28/2023 CORTISOL, BLOOD 06/19/2022 Urinalysis Microscopic 02/22/2023 B12/FOLATE 05/18/2023 THIAMIN VITAMIN B1 09/28/2023 Urine Culture 12/06/2023 RHEUMATOID PANEL 07/20/2024 RIBOFLAVIN VITAMN B2 09/28/2023 Sleep study - Diagnostic Polysonogram COMPREHENSIVE METABOLIC PROFILE WITH GFR 05/13/2023 OCCULT BLOOD, FECAL, IMMUNOASSAY 024 C PEPTIDE 06/15/2022 Vitamin B7 Biotin 09/28/2023 C DIFF TOX PCR STOOL 12/06/2023 CBC W/AUTO DIFF 05/13/2023 CBC W/AUTO DIFF 09/23/2023 CBC W/AUTO DIFF 03/31/2023 VITAMIN B5 (PANTOTHENIC ACID) 09/28/2023 BLEEDING TIME 05/13/2023 BNP 06/15/2022 BNP 06/07/2023 CBC AUTO DIFF 02/22/2023 CBC AUTO DIFF 06/15/2022 CULTURE URINE 02/22/2023 FERRITIN 07/20/2024 GLYCOHEMOGLOBIN A1C 06/15/2022 INSULIN 06/15/2022 IRON 12/06/2023 IRON 09/23/2023 MAGNESIUM 06/15/2022 PROF 14(COMP METB) 06/15/2022 PROF 14(COMP METB) 02/22/2023 QUANTIFERON TB GOLD PLUS 06/15/2023 THYROID ANTIBODIES 06/07/2023 THYROID PROFILE WITH TSH 06/15/2022 VIT B12 AND FOLATE 09/28/2023 VIT B12 AND FOLATE 07/20/2024 VITAMIN B12 09/23/2023 VITAMIN B12 12/06/2023 MRI CSPINE WO CON 06/28/2023 US ABD 06/16/2023 XR CHEST 2 V 07/20/2024 XR FOOT RT 2V 05/22/2024 Plain Treadmill Stress 06/30/2023 THYROID PANEL (T4/TSH/FREE T3) 4 THYROID PANEL (T4/TSH/FREE T3) 5 THYROID PANEL (T4/TSH/FREE T3) 4 THYROID PANEL (T4/TSH/FREE T3) 4 ECHOCARDIO M/2D COMPLETE 06/28/2023 NIACIN (VITAMIN B3) 09/28/2023 Vitamin D 09/23/2023 Vitamin D 12/06/2023 Transferrin 07/20/2024 CMP (COMP MET PEREZ) w/eGFR CKD-EPI 2024 CBC WITH DIFF 07/20/2024 Insurance Providers Payer Name Payer Address Payer Phone Subscriber Number Group Number Insured Name Patient Relationship to Insured Coverage Start Date Coverage End Date [employer] [place] [employer] [address] [facility] [place] [address] [id number] Esme Reyes Self - patient is the insured 4 Medical (General) History Medical History History ICD Code Anemia D64.9 Dehydration, moderate E86.0 Dysmenorrhea N94.6 Calculus, ureteral N20.1 Knee pain, right M25.561 Hip pain M25.559 Dysphagia R13.10 History of cardiac catheterization V45.8 9 H/O cardiac catheterization V45.89 Other specified postprocedural states Z9 8.890 Edema R60.9 Diverticulitis of colon K57.32 Syncope R55 Follicular thyroid carcinoma C73 Plantar fasciitis M72.2 Hiatal hernia K44.9 Obesity E66.9 Diabetes mellitus E11.9 Vitamin D deficiency E55.9 Chronic lymphocytic thyroiditis E06.3 Palpitations R00.2 Insomnia G47.00 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 Menometrorrhagia N92.1 Dyshidrotic eczema L30.1 Arthralgia M25.50 Esophageal stricture K22.2 Gastro-esophageal reflux disease K21.9 Graves' disease E05.00 Surgical History Surgery Date(Month/Year) lap gastric bypass 2017 Hospitalization History Reason Date(Month/Year) hernia 2017 syncope 2020 ALEN jones 2021
--- OUTSIDE RECORDS SUMMARY | 2024-07-20 16:30 | XMS_ITS | Encounter Summary ---
Demographics Address [address] [place] [address] Home Phone Mobile Phone Email Address Preferred Language ENG Marital Status Single Jainism Affiliation Unknown Race White Ethnic Group Not or Lati no Author Organization [facility] Address [address] [place] [address] Care Team Providers Care Application Support Technician Name Role Phone Farhat Cabezas MD Primary Care Provider [phone] Farhat Cabezas MD Unavailable [phone] Source Comments In the event this information is protected by the Federal Confidentiality of Alcohol and Drug AbusePatient Records regulations: The Federal rules restrict any use of the information to criminally investigate or prosecute any alcohol or drug abuse patient.[facility] Encounter Details Date Type Department Care Team (Late st Contact Info) Description 08/12/2020 Get Medical Advice BMI [facility] RE[facility] [address] [place], [place] [id number] Rachel Yi MD [address] [place] [address] RE: Visit Follow Up Question Social History [...] N ot on file 01/16/2020 Data from: https://www.neighborhoodatlas.[facility]/. Last address used for calculation Not [...] Contact Info) Description 08/30/2024 9:30 AM EDT [facility]ocrinology [address] [place] [address] Greg Nina APRN.ROAD DRIVER [address] [place] [address] diabetes follow up with me in 3 months virtually 11/20/2024 1:00 PM EDT [facility]inology [address] [place] [address] Valdez Suarez MD [address] [place] [address] [place] [address] follow up in 6 months documented as of this encounter Visit Diagnoses Not on filedocumented in this encounter Care Teams Application Support Technician Relationship Specialty Start Date End Date Farhat Cabezas MD PCP - General Family Medicine 01/13/11 Farhat Cabezas MD Referring Family Medicine 01/08/22 documented as of this encounter
--- OUTSIDE RECORDS SUMMARY | 2024-07-20 16:30 | XMS_ITS | Encounter Summary ---
Demographics Address [address] [facility] [place] [address] Home Phone Mobile Phone Email Address Preferred Language ENG Marital Status Single Yazidi Affiliation Unknown Race White Ethnic Group Not or Lati no Author Organization [facility] Address [facility] [place] [address] Care Team Providers Care Awning Maker Name Role Phone Farhat Cabezas MD Primary Care Provider [phone] Farhat Cabezas MD Unavailable [phone] Source Comments In the event this information is protected by the Federal Confidentiality of Alcohol and Drug AbusePatient Records regulations: The Federal rules restrict any use of the information to criminally investigate or prosecute any alcohol or drug abuse patient.[facility] Encounter Details Date Type Department Care Team (Late st Contact Info) Description 05/13/2022 Patient Msg Sleep Disorders [address] [place] [phone] Mehnaz Serrano APRN.FIELD [employer] APPRAISER [address] [place], [place] [phone] sleep plan Social History Tobacco Use Types Packs/Day Years [...] N ot on file 02/25/2022 Data from: https://www.[email or web address].medicine.[facility]/. Last address used for calculation [address] 02/25/2022 Comments No Sex and Gender [...] Contact Info) Description 08/30/2024 9:[address] [facility] Endocrinology [address] [place] [address] Greg Nina APRN.[employer] APPRAISER [address] [place], [place] [phone] diabetes follow up with me in 3 months virtually 11/20/2024 1:[address] [facility] Endocrinology [address] [place] [address] Valdez Suarez MD [address] [place] [address] [place], [place] [phone] follow up in 6 months documented as of this encounter Visit Diagnoses Not on filedocumented in this encounter Care Teams Awning Maker Relationship Specialty Start Date End Date Farhat Cabezas MD PCP - General Family Medicine 01/13/11 Farhat Cabezas MD Referring Family Medicine 01/08/22 documented as of this encounter
--- OUTSIDE RECORDS SUMMARY | 2024-07-20 16:30 | XMS_ITS | Encounter Summary ---
Demographics Address [address] [facility] [place] [address] Home Phone Mobile Phone Email Address Preferred Language ENG Marital Status Single Faith Affiliation Unknown Race White Ethnic Group Not or Lati no Author Organization [facility] Address [address] [place] [address] Care Team Providers Care Senior Director Of Strategy Name Role Phone Farhat Cabezas MD Primary Care Provider [phone] Farhat Cabezas MD Unavailable [phone] Source Comments In the event this information is protected by the Federal Confidentiality of Alcohol and Drug AbusePatient Records regulations: The Federal rules restrict any use of the information to criminally investigate or prosecute any alcohol or drug abuse patient.[facility] Encounter Details Date Type Department Care Team (Late st Contact Info) Description 12/12/2021 Get Medical Advice Neurology [address] [place] [address] Mahogany Reyes, ONLINE MERCHANDISING MANAGER.INBOUND INGREDIENT LOGISTICS SPECIALIST [address] [place] [address] Refill 10mg Social History Tobacco Use Types Packs/Day Years Used Date Smoking Tobacco: Never Smokeless Tobacco: Never Alcohol Use Standard Drinks/Week Comments Not Currently 0 (1 standard drink = 0.6 oz pur e alcohol) Social PHQ-2 Answer Date Recorded PHQ-2 score 1 10/17/2021 Area Deprivation Index Answer Date Rod rded National Score (1-100), lower number is lower ri sk 59 07/19/2021 State Score (1-10), lower number is lower risk N ot on file 07/19/2021 Data from: https://www.neighborhoodatlas.medicine.[facility]/. Last address used for calculation [address] 07/19/2021 Comments No Sex and Gender Information [...] encounter Miscellaneous Notes * Telephone Encounter - Latasha Cerda RN - 12/12/2021 2:33 PM EDT [facility] message sent documented in this encounter Plan of Treatment Upcoming Encounters Date Type Department Care Team (Late st Contact Info) Description 08/30/2024 9:30 AM EDT [facility] Endocrinology [address] [place] [phone] Greg Nina APRN.INBOUND INGREDIENT LOGISTICS SPECIALIST [address] [place], [place] [phone] diabetes follow up with me in 3 months virtually 11/20/2024 1:00 PM EDT [facility] Endocrinology [address] [place] [address] Valdez Suarez MD [address] [place] [address] [address] [place], [place] 3960735 follow up in 6 months documented as of this encounter Visit Diagnoses Not on filedocumented in this encounter Care Teams Senior Director Of Strategy Relationship Specialty Start Date End Date Farhat Cabezas MD PCP - General Family Medicine 01/13/11 Farhat Cabezas MD Referring Family Medicine 01/08/22 documented as of this encounter
--- OUTSIDE RECORDS SUMMARY | 2024-07-20 16:30 | XMS_ITS | Encounter Summary ---
Demographics Address [address] [facility] [place] [address] Home Phone Mobile Phone Email Address Preferred Language ENG Marital Status Single Oriental Orthodox Affiliation Unknown Race White Ethnic Group Not or Lati no Author Organization [facility] Address [address] [place] [address] Care Team Providers Care Collar Setter Overlock Name Role Phone Farhat Cabezas MD Primary Care Provider [phone] Farhat Cabezas MD Unavailable [phone] Source Comments In the event this information is protected by the Federal Confidentiality of Alcohol and Drug AbusePatient Records regulations: The Federal rules restrict any use of the information to criminally investigate or prosecute any alcohol or drug abuse patient.[facility] Encounter Details Date Type Department Care Team (Late st Contact Info) Description 12/18/2019 Get Medical Advice [facility] REJ [address] [place], [place] [phone] [place] [address] [place] [address] RE: Non-Urgent Medical Question Social History Tobacco Use Types Packs/Day [...] Contact Info) Description 08/30/2024 9:30 AM EDT [facility] Endocrinology [address] [place] [phone] Greg Nina, MARITZA.AGENCY TRAINER [address] [place] [address] diabetes follow up with me in 3 months virtually 11/20/2024 1:00 PM EDT [facility] Endocrinology [address] [place] [phone] Valdez Suarez MD [address] [place] [address] [address] [place], [place] [phone] follow up in 6 months documented as of this encounter Visit Diagnoses Not on filedocumented in this encounter Care Teams Collar Setter Overlock Relationship Specialty Start Date End Date Farhat Cabezas MD PCP - General Family Medicine 01/13/11 Farhat Cabezas MD Referring Family Medicine 01/08/22 documented as of this encounter
--- OUTSIDE RECORDS SUMMARY | 2024-07-20 16:30 | XMS_ITS | Encounter Summary ---
Demographics Address [address] [facility] [place] [address] Home Phone Mobile Phone Email Address Preferred Language ENG Marital Status Single Latter Day Affiliation Unknown Race White Ethnic Group Not or Lati no Author Organization [facility] Address [address] [place] [address] Care Team Providers Care Business Management Specialist Name Role Phone Farhat Cabezas MD Primary Care Provider [phone] Farhat Cabezas MD Unavailable [phone] Source Comments In the event this information is protected by the Federal Confidentiality of Alcohol and Drug AbusePatient Records regulations: The Federal rules restrict any use of the information to criminally investigate or prosecute any alcohol or drug abuse patient.[facility] Encounter Details Date Type Department Care Team (Late st Contact Info) Description 12/18/2019 Get Medical Advice [facility] REJ [address] [place], [place] [phone] [place] [address] [place] [address] RE: Visit Follow Up Question Social [...] Contact Info) Description 08/30/2024 9:30 AM EDT [facility] Endocrinology [address] [place] [phone] Greg Nina APRN.SPORTS PHYSIOLOGIST [address] [place] [address] diabetes follow up with me in 3 months virtually 11/20/2024 1:00 PM EDT [facility] Endocrinology [address] [place] [phone] Valdez Suarez MD [address] [place] [address] [address] [place], [place] 3766835 follow up in 6 months documented as of this encounter Visit Diagnoses Not on filedocumented in this encounter Care Teams Business Management Specialist Relationship Specialty Start Date End Date Farhat Cabezas MD PCP - General Family Medicine 01/13/11 Farhat Cabezas MD Referring Family Medicine 01/08/22 documented as of this encounter
--- OUTSIDE RECORDS SUMMARY | 2024-07-20 16:30 | XMS_ITS | Encounter Summary ---
Demographics Address [address] [facility] [place] [address] Home Phone Mobile Phone Email Address Preferred Language ENG Marital Status Single Mandaen Affiliation Unknown Race White Ethnic Group Not or Lati no Author Organization [facility] Address [address] [place] [address] Care Team Providers Care Tours Captain Name Role Phone Farhat Cabezas MD Primary Care Provider [phone] Faraht Cabezas MD Unavailable [phone] Source Comments In the event this information is protected by the Federal Confidentiality of Alcohol and Drug AbusePatient Records regulations: The Federal rules restrict any use of the information to criminally investigate or prosecute any alcohol or drug abuse patient.[facility] Encounter Details Date Type Department Care Team (Late st Contact Info) Description 03/14/2020 Patient Msg Family Medicine [address] [place], [place] [phone] Provider, Ccf Appointment Request Social History Tobacco Use Types [...] ot on file 01/16/2020 Data from: https://www.neighborhoodatlas.medicine.[facility].edu/. Last address used for calculation Not [...] Contact Info) Description 08/30/2024 9:30 AM EDT [facility] Endocrinology [address] [place] [phone] Greg Nina APRN.MEDICAL BILL PROCESSOR [address] [place], [place] [phone] diabetes follow up with me in 3 months virtually 11/20/2024 1:00 PM EDT [facility] Endocrinology [address] [place] [address] Valdez Suarez MD [address] [place] [address] [place] [address] follow up in 6 months documented as of this encounter Visit Diagnoses Not on filedocumented in this encounter Care Teams Tours Captain Relationship Specialty Start Date End Date Farhat Cabezas MD PCP - General Family Medicine 01/13/11 Farhat Cabezas MD Referring Family Medicine 01/08/22 documented as of this encounter
--- OUTSIDE RECORDS SUMMARY | 2024-07-20 16:30 | XMS_ITS | Encounter Summary ---
Demographics Address [address] [facility] [place] [address] Home Phone Mobile Phone Email Address Preferred Language ENG Marital Status Single Hindu Affiliation Unknown Race White Ethnic Group Not or Lati no Author Organization [facility] Address [address] [place] [address] Care Team Providers Care Oral And Maxillofacial Surgeon Name Role Phone Farhat Cabezas MD Primary Care Provider [phone] Farhat Cabezas MD Unavailable [phone] Source Comments In the event this information is protected by the Federal Confidentiality of Alcohol and Drug AbusePatient Records regulations: The Federal rules restrict any use of the information to criminally investigate or prosecute any alcohol or drug abuse patient.[facility] Encounter Details Date Type Department Care Team (Late st Contact Info) Description 02/19/2016 Patient Msg Medical Records [address] [place] [address] Provider, Ccf medical workup/ Social History Tobacco Use Types Packs/Day Years [...] Description 08/30/2024 9:30 AM EDT [facility] Endocrinology [address] [place] [address] Greg Nina APRN.CRUSHER FEEDER [address] [place], [place] 7000939 diabetes follow up with me in 3 months virtually 11/20/2024 1:[address] [facility] Endocrinology [address] [place] [address] Valdez Suarez MD [address] [place] [address] [address] [place], [place] [phone] follow up in 6 months documented as of this encounter Visit Diagnoses Not on filedocumented in this encounter Care Teams Oral And Maxillofacial Surgeon Relationship Specialty Start Date End Date Farhat Cabezas MD PCP - General Family Medicine 01/13/11 Farhat Cabezas MD Referring Family Medicine 01/08/22 documented as of this encounter
--- OUTSIDE RECORDS SUMMARY | 2024-07-20 16:30 | XMS_ITS | Encounter Summary ---
Demographics Address [address] [place] [address] Home Phone Mobile Phone Email Address Preferred Language ENG Marital Status Single Protestant Affiliation Unknown Race White Ethnic Group Not or Lati no Author Organization [facility] Address [address] [place] [address] Care Team Providers Care Auto Accessories Installer Name Role Phone Farhat Cabezas MD Primary Care Provider [phone] Farhat Cabezas MD Unavailable [phone] Source Comments In the event this information is protected by the Federal Confidentiality of Alcohol and Drug AbusePatient Records regulations: The Federal rules restrict any use of the information to criminally investigate or prosecute any alcohol or drug abuse patient.[facility] Encounter Details Date Type Department Care Team (Late st Contact Info) Description 02/22/2020 Get Medical Advice [facility] REJ [address] [facility] [facility] [address] [address] [address] [place], [place] [phone] Rachel Yi MD [address] [place] [address] RE: Medication Question (Not Renewal) Social History Tobacco Use Types Packs/Day Years [...] N ot on file 01/16/2020 Data from: https://www.neighborhoodatlas.medicine.[facility]/. Last address used for calculation Not [...] Contact Info) Description 08/30/2024 9:30 AM EDT [facility] Endocrinology [address] [place] [phone] Greg Nina APRN.LICSW [address] [place], [place] 4742339 diabetes follow up with me in 3 months virtually 11/20/2024 1:00 PM EDT [facility] Endocrinology [address] [place] [address] Valdez Suarez MD [address] [place] [address] [place] [address] follow up in 6 months documented as of this encounter Visit Diagnoses Not on filedocumented in this encounter Care Teams Auto Accessories Installer Relationship Specialty Start Date End Date Farhat Cabezas MD PCP - General Family Medicine 01/13/11 Farhat Cabezas MD Referring Family Medicine 01/08/22 documented as of this encounter
--- OUTSIDE RECORDS SUMMARY | 2024-07-20 16:30 | XMS_ITS | Encounter Summary ---
Demographics Address [address] [facility] [place] [address] Home Phone Mobile Phone Email Address Preferred Language ENG Marital Status Single Taoism Affiliation Unknown Race White Ethnic Group Not or Lati no Author Organization [facility] Address [address] [place] [address] Care Team Providers Care Laser Set Up Operator Name Role Phone Farhat Cabezas MD Primary Care Provider [phone] Farhat Cabezas MD Unavailable [phone] Source Comments In the event this information is protected by the Federal Confidentiality of Alcohol and Drug AbusePatient Records regulations: The Federal rules restrict any use of the information to criminally investigate or prosecute any alcohol or drug abuse patient.[facility] Encounter Details Date Type Department Care Team (Late st Contact Info) Description 03/31/2016 Get Medical Advice General Surgery [address] [id number] Rachel Yi MD [address]655 [place] [address] RE: Non-Urgent Medical Question Social History [...] Contact Info) Description 08/30/2024 9:30 AM EDT [facility] Endocrinology [address] [place] [phone] Greg Nina APRN.PIN GAME MACHINE INSPECTOR [address] [place], [place] [phone] diabetes follow up with me in 3 months virtually 11/20/2024 1:00 PM EDT [facility] Endocrinology [address] [place] [address] Valdez Suarez MD [address] [place] [address] [address] [place], [place] [phone] follow up in 6 months documented as of this encounter Visit Diagnoses Not on filedocumented in this encounter Care Teams Laser Set Up Operator Relationship Specialty Start Date End Date Farhat Cabezas MD PCP - General Family Medicine 01/13/11 Farhat Cabezas MD Referring Family Medicine 01/08/22 documented as of this encounter
--- OUTSIDE RECORDS SUMMARY | 2024-07-20 16:30 | XMS_ITS | Encounter Summary ---
Demographics Address [address] [facility] [place] [address] Home Phone Mobile Phone Email Address Preferred Language ENG Marital Status Single Yazdanism Affiliation Unknown Race White Ethnic Group Not or Lati no Author Organization [facility] Address [address] [place] [address] Care Team Providers Care Automatic Brine Mixer Operator Name Role Phone Farhat Cabezas MD Primary Care Provider [phone] Farhat Cabezas MD Unavailable [phone] Source Comments In the event this information is protected by the Federal Confidentiality of Alcohol and Drug AbusePatient Records regulations: The Federal rules restrict any use of the information to criminally investigate or prosecute any alcohol or drug abuse patient.[facility] Encounter Details Date Type Department Care Team (Late st Contact Info) Description 08/17/2016 Get Medical Advice Rheumatology [address] [place] [address] Zabrina Culver MD [address] [place] [address] RE: Upcoming Appointment Question Social History Tobacco Use [...] Contact Info) Description 08/30/2024 9:30 AM EDT [facility] Endocrinology [address] [place] [phone] Greg Nina APRN.CANCER GENETIC COUNSELOR [address] [place], [place] 2397939 diabetes follow up with me in 3 months virtually 11/20/2024 1:00 PM EDT [facility] Endocrinology [address] [place] [phone] Valdez Suarez MD [address] [place] [address] [address] [place], [place] 3993835 follow up in 6 months documented as of this encounter Visit Diagnoses Not on filedocumented in this encounter Care Teams Automatic Brine Mixer Operator Relationship Specialty Start Date End Date Farhat Cabezas MD PCP - General Family Medicine 01/13/11 Farhat Cabezas MD Referring Family Medicine 01/08/22 documented as of this encounter
--- OUTSIDE RECORDS SUMMARY | 2024-07-20 16:30 | XMS_ITS | Encounter Summary ---
Demographics Address [address] [facility] [place] [address] Home Phone Mobile Phone Email Address Preferred Language ENG Marital Status Single Quaker Affiliation Unknown Race White Ethnic Group Not or Lati no Author Organization [facility] Address [address] [place] [address] Care Team Providers Care Bone Char Kiln Tender Name Role Phone Farhat Cabezas MD Primary Care Provider [phone] Farhat Cabezas MD Unavailable [phone] Source Comments In the event this information is protected by the Federal Confidentiality of Alcohol and Drug AbusePatient Records regulations: The Federal rules restrict any use of the information to criminally investigate or prosecute any alcohol or drug abuse patient.[facility] Encounter Details Date Type Department Care Team (Late st Contact Info) Description 10/12/2019 Patient Msg General Surgery BMI [facility] [address] [place], [place] [phone] Graciela Hoyt, PhD [address] [phone] OCD specialists Social History Tobacco Use Types Packs/Day Years [...] Assessment Author No 12/14/2016 12:43 PM oMna Dubose (Rn) (Hist), RN * Do you [...] Contact Info) Description 08/30/2024 9:30 AM EDT [facility] Endocrinology [address] [place] [phone] Greg Nina APRN.DEPUTY DIRECTOR [address] [place], [place] 1680439 diabetes follow up with me in 3 months virtually 11/20/2024 1:00 PM EDT [facility] Endocrinology [address] [place] [phone] Valdez Suarez MD [address] [place] [address] [place] [address] follow up in 6 months documented as of this encounter Visit Diagnoses Not on filedocumented in this encounter Care Teams Bone Char Kiln Tender Relationship Specialty Start Date End Date Farhat Cabezas MD PCP - General Family Medicine 01/13/11 Farhat Cabezas MD Referring Family Medicine 01/08/22 documented as of this encounter
--- OUTSIDE RECORDS SUMMARY | 2024-07-20 16:30 | XMS_ITS | Encounter Summary ---
Demographics Address [address] [place] [address] Home Phone Mobile Phone Email Address Preferred Language ENG Marital Status Single Methodist Affiliation Unknown Race White Ethnic Group Not or Lati no Author Organization [facility] Address [address] [place] [address] Care Team Providers Care Associate Account Manager Name Role Phone Farhat Cabezas MD Primary Care Provider [phone] Farhat Cabezas MD Unavailable [phone] Source Comments In the event this information is protected by the Federal Confidentiality of Alcohol and Drug AbusePatient Records regulations: The Federal rules restrict any use of the information to criminally investigate or prosecute any alcohol or drug abuse patient.[facility] Encounter Details Date Type Department Care Team (Late st Contact Info) Description 09/22/2020 Get Medical Advice BMI [facility] REJ [address] [place], [place] [address] Rachel Yi MD [address]00 [place] [address] RE: Visit Follow Up Question [...] N ot on file 01/16/2020 Data from: https://www.neighborhoodatlas.[facility]/. Last address used for calculation Not on [...] have Coronavirus / COVID-19? No / Unsure 08/23/2020 7:54 PM EDT documented as of this encounter [...] Contact Info) Description 08/30/2024 9:30 AM EDT [facility] Endocrinology [address] [place] [address] Greg Nina APRN.BUYING AGENT [address] [place] [address] diabetes follow up with me in 3 months virtually 11/20/2024 1:00 PM EDT [facility] Endocrinology [address] [place] [phone] Valdez Suarez MD [address] [place] [address] [place] [address] follow up in 6 months documented as of this encounter Visit Diagnoses Not on filedocumented in this encounter Care Teams Associate Account Manager Relationship Specialty Start Date End Date Farhat Cabezas MD PCP - General Family Medicine 01/13/11 Farhat Cabezas MD Referring Family Medicine 01/08/22 documented as of this encounter
--- OUTSIDE RECORDS SUMMARY | 2024-07-20 16:30 | XMS_ITS | Encounter Summary ---
Demographics Address [address] [place] [address] Home Phone Mobile Phone Email Address Preferred Language ENG Marital Status Single Baptist Affiliation Unknown Race White Ethnic Group Not or Lati no Author Organization [facility] Address [address] [place] [address] Care Team Providers Care Aeronautics Teacher Name Role Phone Farhat Cabezas MD Primary Care Provider [phone] Farhat Cabezas MD Unavailable [phone] Source Comments In the event this information is protected by the Federal Confidentiality of Alcohol and Drug AbusePatient Records regulations: The Federal rules restrict any use of the information to criminally investigate or prosecute any alcohol or drug abuse patient.[facility] Encounter Details Date Type Department Care Team (Late st Contact Info) Description 04/29/2022 Get Medical Advice Neurology [address] [place], [place] [phone] [place] [address] [place] [address] SLEEP APNEA / DOWNLOAD BI PAP MACHINE Social History Tobacco Use Types Packs/Day Years [...] N ot on file 02/25/2022 Data from: https://www.neighborhoodatlas.medicine.[facility]/. Last address used for calculation [address] 02/25/2022 Comments No Sex and Gender [...] encounter Miscellaneous Notes * Telephone Encounter - Keshawn Carpio RN - 04/29/2022 2:57 PM EDT [facility]RAVE message sent * Telephone Encounter - Keshawn Carpio RN - 04/29/2022 2:50 PM EDT Images from the original note were not included. documented in this encounter Plan of Treatment Upcoming Encounters Date Type Department Care Team (Late st Contact Info) Description 08/30/2024 9:30 AM EDT [facility] Endocrinology [address] [place] [phone] Greg Nina APRN.OREMAN [address] [place], [place] 6141539 diabetes follow up with me in 3 months virtually 11/20/2024 1:00 PM EDT [facility] Endocrinology [address] [place] [phone] Valdez Suarez MD [address] [place] [address] [address] [place], [place] 46709[address] follow up in 6 months documented as of this encounter Visit Diagnoses Not on filedocumented in this encounter Care Teams Aeronautics Teacher Relationship Specialty Start Date End Date Farhat Cabezas MD PCP - General Family Medicine 01/13/11 Farhat Cabezas MD Referring Family Medicine 01/08/22 documented as of this encounter
--- OUTSIDE RECORDS SUMMARY | 2024-07-20 16:30 | XMS_ITS | Encounter Summary ---
Demographics Address [address] [facility] [place] [address] Home Phone Mobile Phone Email Address Preferred Language ENG Marital Status Single Catholic Affiliation Unknown Race White Ethnic Group Not or Lati no Author Organization [facility] Address [address] [place] [address] Care Team Providers Care Outsole Leveler Name Role Phone Jacob Santillan MD Primary Care Provider [phone] Farhat Cabezas MD Primary Care Provider [phone] Farhat Cabezas MD Unavailable [phone] Source Comments In the event this information is protected by the Federal Confidentiality of Alcohol and Drug AbusePatient Records regulations: The Federal rules restrict any use of the information to criminally investigate or prosecute any alcohol or drug abuse patient.[facility] Reason for Visit * Reason Comments Outside Lab Results [facility] 05/09/08 Encounter Details Date Type Department Care Team (Late st Contact Info) Description 05/14/2008 Abstract Rheumatology [address] [place] [address] Zabrina Culver MD [address] [place], [place] [phone] Outside Lab Results ([facility] 05/09/08) Social History Tobacco Use Types Packs/Day Years Used Date Smoking Tobacco: Never Alcohol Use Standard Drinks/Week Comments [...] Contact Info) Description 08/30/2024 9:30 AM EDT [facility] Endocrinology [address] [place] [address] Greg Nina APRN.ELECTRICAL CONTACTS ADJUSTER [address] [place], [place] [phone] diabetes follow up with me in 3 months virtually 11/20/2024 1:00 PM EDT [facility] Endocrinology [address] [place] [address] Valdez Suarez MD [address] [place] [address] [address] [place], [place] [phone] follow up in 6 months documented as of this encounter Visit Diagnoses Not on filedocumented in this encounter Care Teams Outsole Leveler Relationship Specialty Start Date End Date Jacob Santillan MD PCP - General 08/05/05 01/12/11 Farhat Cabezas MD PCP - General Family Medicine 01/13/11 Farhat Cabezas MD Referring Family Medicine 01/08/22 documented as of this encounter
--- OUTSIDE RECORDS SUMMARY | 2024-07-20 16:30 | XMS_ITS | Encounter Summary ---
Demographics Address [address] [facility] [place] [address] Home Phone Mobile Phone Email Address Preferred Language ENG Marital Status Single Baptist Affiliation Unknown Race White Ethnic Group Not or Lati no Author Organization [facility] Address [address] [place] [address] Care Team Providers Care Family Dinner Service Specialist Name Role Phone Farhat Cabezas MD Primary Care Provider [phone] Farhat Cabezas MD Unavailable [phone] Source Comments In the event this information is protected by the Federal Confidentiality of Alcohol and Drug AbusePatient Records regulations: The Federal rules restrict any use of the information to criminally investigate or prosecute any alcohol or drug abuse patient.[facility] Encounter Details Date Type Department Care Team (Late st Contact Info) Description 01/22/2022 Patient Msg Endocrinology [address] [place] [address] Valdez Suarez MD [address] [place] [address] [place] [address] labs and appointment Social History Tobacco Use Types Packs/Day Years [...] N ot on file 07/19/2021 Data from: https://www.neighborhoodatlas.medicine.[facility]/. Last address used for calculation [address] [...] encounter Miscellaneous Notes * Telephone Encounter - Angela Suazo - 01/23/2022 10:31 AM EST Spoke to patient, scheduled 03/02/[address] Suarez Virtual * Telephone Encounter - Valdez Suarez MD - 01/22/2022 2:55 PM EST Please schedule virtual f/u, overdue documented in this encounter Plan of Treatment Upcoming Encounters Date Type Department Care Team (Late st Contact Info) Description 08/30/2024 9:30 AM EDT [facility] Endocrinology [address] [place] [address] Greg Nina, MARITZA.OUTSIDE SALES [address] [place], [place] 8790039 diabetes follow up with me in 3 months virtually 11/20/2024 1:00 PM EDT [facility] Endocrinology [address] [place] [address] Valdez Suarez MD [address] [place] [address] [address] [place], [place] [phone] follow up in 6 months documented as of this encounter Visit Diagnoses Not on filedocumented in this encounter Care Teams Family Dinner Service Specialist Relationship Specialty Start Date End Date Farhat Cabezas MD PCP - General Family Medicine 01/13/11 Farhat Cabezas MD Referring Family Medicine 01/08/22 documented as of this encounter
--- OUTSIDE RECORDS SUMMARY | 2024-07-20 16:30 | XMS_ITS | Encounter Summary ---
Demographics Address [address] [facility] [place] [address] Home Phone Mobile Phone Email Address Preferred Language ENG Marital Status Single Yarsani Affiliation Unknown Race White Ethnic Group Not or Lati no Author Organization [facility] Address [address] [place] [address] Care Team Providers Care Shade Bander Name Role Phone Farhat Cabezas MD Primary Care Provider [phone] Farhat Cabezas MD Unavailable [phone] Source Comments In the event this information is protected by the Federal Confidentiality of Alcohol and Drug AbusePatient Records regulations: The Federal rules restrict any use of the information to criminally investigate or prosecute any alcohol or drug abuse patient.[facility] Encounter Details Date Type Department Care Team (Late st Contact Info) Description 12/23/2015 Get Medical Advice General Surgery [address] [phone] Rachel Yi MD [address] [place] [address] RE: Test Result Question Social [...] Description 08/30/2024 9:30 AM EDT [facility] Endocrinology [address] [place] [address] Greg Nina APRN.ENGINE MANAGER [address] [place], [place] [phone] diabetes follow up with me in 3 months virtually 11/20/2024 1:00 PM EDT [facility] Endocrinology [address] [place] [address] Valdez Suarez MD [address] [place] [address] [address] [place], [place] 0606935 follow up in 6 months documented as of this encounter Visit Diagnoses Not on filedocumented in this encounter Care Teams Shade Bander Relationship Specialty Start Date End Date Farhat Cabezas MD PCP - General Family Medicine 01/13/11 Farhat Cabezas MD Referring Family Medicine 01/08/22 documented as of this encounter
--- OUTSIDE RECORDS SUMMARY | 2024-07-20 16:30 | XMS_ITS | Encounter Summary ---
Demographics Address [address] [facility] [place] [address] Home Phone Mobile Phone Email Address Preferred Language ENG Marital Status Single Sikhism Affiliation Unknown Race White Ethnic Group Not or Lati no Author Organization [facility] Address [address] [place] [address] Care Team Providers Care Special Education Inclusion Teacher Name Role Phone Farhat Cabezas MD Primary Care Provider [phone] Farhat Cabezas MD Unavailable [phone] Source Comments In the event this information is protected by the Federal Confidentiality of Alcohol and Drug AbusePatient Records regulations: The Federal rules restrict any use of the information to criminally investigate or prosecute any alcohol or drug abuse patient.[facility] Encounter Details Date Type Department Care Team (Late st Contact Info) Description 09/20/2019 Abstract [facility] REJ [address] [place] [address] [place] [address] [place], [place] [phone] Social History Tobacco Use Types Packs/Day Years [...] have Coronavirus / COVID-19? Unable to assess 09/20/2019 2:37 PM EDT documented as of this encounter [...] Description 08/30/2024 9:30 AM EDT [facility] Endocrinology [address] [place] [phone] Greg Nina APRN.CART PUSHER [address] [place], [place] [phone] diabetes follow up with me in 3 months virtually 11/20/2024 1:00 PM EDT [facility] Endocrinology [address] [place] [address] Valdez Suarez MD [address] [place] [address] [place] [address] follow up in 6 months documented as of this encounter Visit Diagnoses Not on filedocumented in this encounter Care Teams Special Education Inclusion Teacher Relationship Specialty Start Date End Date Farhat Cabezas MD PCP - General Family Medicine 01/13/11 Farhat Cabezas MD Referring Family Medicine 01/08/22 documented as of this encounter
--- OUTSIDE RECORDS SUMMARY | 2024-07-20 16:30 | XMS_ITS | Encounter Summary ---
Demographics Address [address] [facility] [place] [address] Home Phone Mobile Phone Email Address Preferred Language ENG Marital Status Single Sikhism Affiliation Unknown Race White Ethnic Group Not or Lati no Author Organization [facility] Address [address] [place] [address] Care Team Providers Care Rn Recruitment Name Role Phone Farhat Cabezas MD Primary Care Provider [phone] Farhat Cabezas MD Unavailable [phone] Source Comments In the event this information is protected by the Federal Confidentiality of Alcohol and Drug AbusePatient Records regulations: The Federal rules restrict any use of the information to criminally investigate or prosecute any alcohol or drug abuse patient.[facility] Encounter Details Date Type Department Care Team (Late st Contact Info) Description 10/09/2019 Get Medical Advice General Surgery BMI PSYL [address] [facility] [place] [address] Graciela Hoyt, PhD [address] [phone] RE: Upcoming Appointment Question Social History Tobacco [...] AM EDT [facility] Endocrinology [address] [place] [phone] Greg Nina APRN.FENCE RIDER [address] [place], [place] 1371939 diabetes follow up with me in 3 months virtually 11/20/2024 1:00 PM EDT [facility] Endocrinology [address] [place] [address] Valdez Suarez MD [address] [place] [address] [place] [address] follow up in 6 months documented as of this encounter Visit Diagnoses Not on filedocumented in this encounter Care Teams Rn Recruitment Relationship Specialty Start Date End Date Farhat Cabezas MD PCP - General Family Medicine 01/13/11 Farhat Cabezas MD Referring Family Medicine 01/08/22 documented as of this encounter
--- OUTSIDE RECORDS SUMMARY | 2024-07-20 16:30 | XMS_ITS | Encounter Summary ---
Demographics Address [address] [facility] [place] [address] Home Phone Mobile Phone Email Address Preferred Language ENG Marital Status Single Church Affiliation Unknown Race White Ethnic Group Not or Lati no Author Organization [facility] Address [address] [place] [address] Care Team Providers Care Spotlight Operator Name Role Phone Farhat Cabezas MD Primary Care Provider [phone] Farhat Cabezas MD Unavailable [phone] Source Comments In the event this information is protected by the Federal Confidentiality of Alcohol and Drug AbusePatient Records regulations: The Federal rules restrict any use of the information to criminally investigate or prosecute any alcohol or drug abuse patient.[facility] Encounter Details Date Type Department Care Team (Late st Contact Info) Description 10/27/2021 Get Medical Advice Neurology [address] [place] [address] Mahogany Reyes, BREAK OFF WORKER.MILLED RICE BROKER [address] [place] [address] Med refill Social History Tobacco Use Types Packs/Day Years [...] N ot on file 07/19/2021 Data from: https://www.neighborhoodatlas.medicine.[facility]/. Last address used for calculation [address] 07/19/2021 Comments No Sex and [...] Telephone Encounter - Latasha Cerda RN - 11/19/2021 8:06 AM EDT [employer] message sent * Telephone Encounter - Mahogany Reyes APRN.MILLED RICE BROKER - 11/10/2021 11:59 AM EDT Order completed. PDMP website checked and validated. All prescriptions have been APPROPRIATELY filled. No suspiciousactivity was identified. 11/10/2021 by Mahogany Reyes APRN.MILLED RICE BROKER * Telephone Encounter - Latasha Cerda RN - 11/10/2021 11:49 AM EDT Yosvany 03/20/21 w/ BREAK OFF WORKER Fov 12/17/21 w/ BREAK OFF WORKER My Chart message sent to patient to remind them to schedule follow up appt with MD for yearly appt. IMPRESSION / PLAN: Esme Reyes is a 45 year old female with [...] BiPAP 12/8 cm H20. - Follow-up with BREAK OFF WORKER for in person visit as this is a requirement when receiving controlled medications. Mahogany Reyes APRN.MILLED RICE BROKER * Telephone Encounter - Latasha Cerda RN - 10/29/2021 1:48 PM EDT MyChart message sent * Telephone Encounter - Mahogany Reyes APRN.FRANK - 10/28/2021 11:07 AM EDT Images from the original note were not included. I do not understand the problem. Zaleplon 10 mg was filled on 10/11/21 and 5 mg was filled on 10/01/21. documented in this encounter Plan of Treatment Upcoming Encounters Date Type Department Care Team (Late st Contact Info) Description 08/30/2024 9:[address] [facility] Endocrinology [address] [place] [phone] Greg Nina APRN.CNP [address] [place], [place] [phone] diabetes follow up with me in 3 months virtually 11/20/2024 1:[address] [facility] Endocrinology [address] [place] [address] Valdez Suarez MD [address] [place] [address] [address] [place], [place] 4832935 follow up in 6 months documented as of this encounter Visit Diagnoses Diagnosis Other insomnia documented in this encounter Care Teams Spotlight Operator Relationship Specialty Start Date End Date Farhat Cabezas MD PCP - General Family Medicine 01/13/11 Farhat Cabezas MD Referring Family Medicine 01/08/22 documented as of this encounter
--- OUTSIDE RECORDS SUMMARY | 2024-07-20 16:30 | XMS_ITS | Encounter Summary ---
Demographics Address [address] [place] [address] Home Phone Mobile Phone Email Address Preferred Language ENG Marital Status Single Orthodox Affiliation Unknown Race White Ethnic Group Not or Lati no Author Organization [facility] Address [facility] [place] [address] Care Team Providers Care Placement Manager Name Role Phone Jacob Santillan MD Primary Care Provider [phone] Farhat Cabezas MD Primary Care Provider [phone] Farhat Cabezas MD Unavailable [phone] Source Comments In the event this information is protected by the Federal Confidentiality of Alcohol and Drug AbusePatient Records regulations: The Federal rules restrict any use of the information to criminally investigate or prosecute any alcohol or drug abuse patient.[facility] Encounter Details Date Type Department Care Team (Late st Contact Info) Description 09/20/2008 Patient Msg Medical Records [address] [place] [address] Provider, Ccf RE: Findings/questions/GI refferal Social History Tobacco Use Types Packs/Day Years [...] Contact Info) Description 08/30/2024 9:30 AM EDT [facility] Endocrinology [address] [place] [phone] Greg Nina APRN.MANAGER REIMBURSEMENT [address] [place], [place] 8291239 diabetes follow up with me in 3 months virtually 11/20/2024 1:00 PM EDT [facility] Endocrinology [address] [place] [address] Valdez Suarez MD [address] [place] [address] [address] [place], [place] 9952435 follow up in 6 months documented as of this encounter Visit Diagnoses Not on filedocumented in this encounter Care Teams Placement Manager Relationship Specialty Start Date End Date Jacob Santillan MD PCP - General 08/05/05 01/12/11 Farhat Cabezas MD PCP - General Family Medicine 01/13/11 Farhat Cabezas MD Referring Family Medicine 01/08/22 documented as of this encounter
--- OUTSIDE RECORDS SUMMARY | 2024-07-20 16:30 | XMS_ITS | Encounter Summary ---
Demographics Address [address] [place] [address] Home Phone Mobile Phone Email Address Preferred Language ENG Marital Status Single Muslim Affiliation Unknown Race White Ethnic Group Not or Lati no Author Organization [facility] Address [address] [place] [address] Care Team Providers Care Scuba Diving Teacher Name Role Phone Farhat Cabezas MD Primary Care Provider [phone] Farhat Cabezas MD Unavailable [phone] Source Comments In the event this information is protected by the Federal Confidentiality of Alcohol and Drug AbusePatient Records regulations: The Federal rules restrict any use of the information to criminally investigate or prosecute any alcohol or drug abuse patient.[facility] Encounter Details Date Type Department Care Team (Late st Contact Info) Description 04/09/2020 Get Medical Advice General Surgery [address] [phone] Rachel Yi MD [address] [place] [address] RE: Upcoming Appointment Question Social History Tobacco [...] N ot on file 01/16/2020 Data from: https://www.neighborhoodatlas.[facility]/. Last address used for calculation Not on [...] Contact Info) Description 08/30/2024 9:30 AM EDT [facility] Endocrinology [address] [place] [address] Greg Nina, SCRAP DROP ENGINEER.GOLD BEATER [address] [place], [place] [phone] diabetes follow up with me in 3 months virtually 11/20/2024 1:00 PM EDT [facility] Endocrinology [address] [place] [phone] Valdez Suarez MD [address] [place] [address] [place] [address] follow up in 6 months documented as of this encounter Visit Diagnoses Not on filedocumented in this encounter Care Teams Scuba Diving Teacher Relationship Specialty Start Date End Date Farhat Cabezas MD PCP - General Family Medicine 01/13/11 Farhat Cabezas MD Referring Family Medicine 01/08/22 documented as of this encounter
--- OUTSIDE RECORDS SUMMARY | 2024-07-20 16:30 | XMS_ITS | Encounter Summary ---
Demographics Address [address] [facility] [place] [address] Home Phone Mobile Phone Email Address Preferred Language ENG Marital Status Single Buddhist Affiliation Unknown Race White Ethnic Group Not or Lati no Author Organization [facility] Address [address] [place] [address] Care Team Providers Care Chore Tender Name Role Phone Farhat Cabezas MD Primary Care Provider [phone] Farhat Cabezas MD Unavailable [phone] Source Comments In the event this information is protected by the Federal Confidentiality of Alcohol and Drug AbusePatient Records regulations: The Federal rules restrict any use of the information to criminally investigate or prosecute any alcohol or drug abuse patient.[facility] Encounter Details Date Type Department Care Team (Late st Contact Info) Description 05/09/2019 Patient Msg Family Medicine [address] [place], [place] [phone] Provider, Ccf *Appointment Changes* Social History Tobacco Use Types Packs/Day Years [...] Contact Info) Description 08/30/2024 9:30 AM EDT [facility] Endocrinology [address] [place] [address] Greg Nina APRN.SHAKE LOADER [address] [place] [address] diabetes follow up with me in 3 months virtually 11/20/2024 1:00 PM EDT [facility] Endocrinology [address] [place] [address] Valdez Suarez MD [address] [place] [address] [place] [address] follow up in 6 months documented as of this encounter Visit Diagnoses Not on filedocumented in this encounter Care Teams Chore Tender Relationship Specialty Start Date End Date Farhat Cabezas MD PCP - General Family Medicine 01/13/11 Farhat Cabezas MD Referring Family Medicine 01/08/22 documented as of this encounter
--- OUTSIDE RECORDS SUMMARY | 2024-07-20 16:30 | XMS_ITS | Encounter Summary ---
Demographics Address [address] [facility] [place] [address] Home Phone Mobile Phone Email Address Preferred Language ENG Marital Status Single Scientologist Affiliation Unknown Race White Ethnic Group Not or Lati no Author Organization [facility] Address [address] [place] [address] Care Team Providers Care Parts Counter Clerk Name Role Phone Farhat Cabezas MD Primary Care Provider [phone] Farhat Cabezas MD Unavailable [phone] Source Comments In the event this information is protected by the Federal Confidentiality of Alcohol and Drug AbusePatient Records regulations: The Federal rules restrict any use of the information to criminally investigate or prosecute any alcohol or drug abuse patient.[facility] Encounter Details Date Type Department Care Team (Late st Contact Info) Description 10/05/2019 Get Medical Advice [facility] REJ [address] [place], [place] [phone] [place] [address] [place] [address] RE: Visit Follow Up Question Social [...] 9:[address] [facility] Endocrinology [address] [place] [address] Greg Nina APRN.HEAD OF DESIGN [address] [place] [address] diabetes follow up with me in 3 months virtually 11/20/2024 1:[address] [facility] Endocrinology [address] [place] [address] Valdez Suarez MD [address] [place] [place] [address] follow up in 6 months documented as of this encounter Visit Diagnoses Not on filedocumented in this encounter Care Teams Parts Counter Clerk Relationship Specialty Start Date End Date Farhat Cabezas MD PCP - General Family Medicine 01/13/11 Farhat Cabezas MD Referring Family Medicine 01/08/22 documented as of this encounter
--- OUTSIDE RECORDS SUMMARY | 2024-07-20 16:30 | XMS_ITS | Encounter Summary ---
Demographics Address [address] [facility] [place] [address] Home Phone Mobile Phone Email Address Preferred Language ENG Marital Status Single Baptist Affiliation Unknown Race White Ethnic Group Not or Lati no Author Organization [facility] Address [facility] [place] [address] Care Team Providers Care Sawmill Tally Clerk Name Role Phone Farhat Cabezas MD Primary Care Provider [phone] Farhat Cabezas MD Unavailable [phone] Source Comments In the event this information is protected by the Federal Confidentiality of Alcohol and Drug AbusePatient Records regulations: The Federal rules restrict any use of the information to criminally investigate or prosecute any alcohol or drug abuse patient.[facility] Encounter Details Date Type Department Care Team (Late st Contact Info) Description 09/28/2021 Patient Msg Sleep Psychology [address] [place] [address] [place] [address] [facility] [address] [place] [address] behavioral sleep medicine visit Tues Social History Tobacco Use Types Packs/Day Years [...] N ot on file 07/19/2021 Data from: https://www.neighborhoodatlas.medicine.[facility].edu/. Last address used for calculation [address] 07/19/2021 Comments No Sex and Gender [...] Description 08/30/2024 9:30 AM EDT [facility] Endocrinology [address] [place] [phone] Greg Nina APRN.GIVING OFFICER [address] [place], [place] [phone] diabetes follow up with me in 3 months virtually 11/20/2024 1:00 PM EDT [facility] Endocrinology [address] [place] [address] Valdez Suarez MD [address] [place] [address] [place], [place] 1974735 follow up in 6 months documented as of this encounter Visit Diagnoses Not on filedocumented in this encounter Care Teams Sawmill Tally Clerk Relationship Specialty Start Date End Date Farhat Cabezas MD PCP - General Family Medicine 01/13/11 Farhat Cabezas MD Referring Family Medicine 01/08/22 documented as of this encounter
--- OUTSIDE RECORDS SUMMARY | 2024-07-20 16:30 | XMS_ITS | Encounter Summary ---
Demographics Address [address] [facility] [place] [address] Home Phone Mobile Phone Email Address Preferred Language ENG Marital Status Single Hoahaoism Affiliation Unknown Race White Ethnic Group Not or Lati no Author Organization [facility] Address [address] [place] [address] Care Team Providers Care Rfid Manager Name Role Phone Farhat Cabezas MD Primary Care Provider [phone] Farhat Cabezas MD Unavailable [phone] Source Comments In the event this information is protected by the Federal Confidentiality of Alcohol and Drug AbusePatient Records regulations: The Federal rules restrict any use of the information to criminally investigate or prosecute any alcohol or drug abuse patient.[facility] Encounter Details Date Type Department Care Team (Late st Contact Info) Description 01/10/2016 Get Medical Advice General Surgery [address] [phone] Rachel Yi MD [address] [place] [address] RE: Non-Urgent Medical Question Social [...] AM EDT [facility] Endocrinology [address] [place] [phone] Greg Nina APRN.TEACHER OF THE DEAF [address] [place], [place] 0597239 diabetes follow up with me in 3 months virtually 11/20/2024 1:00 PM EDT [facility] Endocrinology [address] [place] [address] Valdez Suarez MD [address] [place] [address] [address] [place], [place] 0346135 follow up in 6 months documented as of this encounter Visit Diagnoses Not on filedocumented in this encounter Care Teams Rfid Manager Relationship Specialty Start Date End Date Farhat Caebzas MD PCP - General Family Medicine 01/13/11 Farhat Cabezas MD Referring Family Medicine 01/08/22 documented as of this encounter
--- OUTSIDE RECORDS SUMMARY | 2024-07-20 16:30 | XMS_ITS | Encounter Summary ---
Demographics Address [address] [facility] [place] [address] Home Phone Mobile Phone Email Address Preferred Language ENG Marital Status Single Mosque Affiliation Unknown Race White Ethnic Group Not or Lati no Author Organization [facility] Address [address] [place] [address] Care Team Providers Care Electrical Checkout Mechanic Name Role Phone Farhat Cabezas MD Primary Care Provider [phone] Farhat Cabezas MD Unavailable [phone] Source Comments In the event this information is protected by the Federal Confidentiality of Alcohol and Drug AbusePatient Records regulations: The Federal rules restrict any use of the information to criminally investigate or prosecute any alcohol or drug abuse patient.[facility] Encounter Details Date Type Department Care Team (Late st Contact Info) Description 05/26/2016 Get Medical Advice General Surgery [address] [phone] Marlin Chao (Hist)MD [address] [place] [address] RE: Non-Urgent Medical Question Social [...] Description 08/30/2024 9:30 AM EDT [facility] Endocrinology [address] [place] [phone] Greg Nina APRN.BROOMMAKING SUPERVISOR [address] [place], [place] [phone] diabetes follow up with me in 3 months virtually 11/20/2024 1:00 PM EDT [facility] Endocrinology [address] [place] [phone] Valdez Suarez MD [address] [place] [address] [address] [place], [place] [phone] follow up in 6 months documented as of this encounter Visit Diagnoses Not on filedocumented in this encounter Care Teams Electrical Checkout Mechanic Relationship Specialty Start Date End Date Farhat Cabezas MD PCP - General Family Medicine 01/13/11 Farhat Cabezas MD Referring Family Medicine 01/08/22 documented as of this encounter
--- OUTSIDE RECORDS SUMMARY | 2024-07-20 16:30 | XMS_ITS | Encounter Summary ---
Demographics Address [address] [facility] [place] [address] Home Phone Mobile Phone Email Address Preferred Language ENG Marital Status Single Quaker Affiliation Unknown Race White Ethnic Group Not or Lati no Author Organization [facility] Address [address] [place] [address] Care Team Providers Care Furnace Checker Name Role Phone Farhat Cabezas MD Primary Care Provider [phone] Farhat Cabezas MD Unavailable [phone] Source Comments In the event this information is protected by the Federal Confidentiality of Alcohol and Drug AbusePatient Records regulations: The Federal rules restrict any use of the information to criminally investigate or prosecute any alcohol or drug abuse patient.[facility] Encounter Details Date Type Department Care Team (Late st Contact Info) Description 08/05/2019 Patient Msg Family Medicine [address] [place], [place] [phone] Provider, Ccf Appointment Needed! Social History Tobacco Use Types Packs/Day Years [...] have Coronavirus / COVID-19? Unable to assess 07/21/2019 3:41 PM EDT documented as of this encounter [...] Info) Description 08/30/2024 9:30 AM EDT [facility] Endocrinology [address] [place] [phone] Greg Nina APRN.PLANE TABLEMAN [address] [place] [address] diabetes follow up with me in 3 months virtually 11/20/2024 1:00 PM EDT [facility] Endocrinology [address] [place] [phone] Valdez Suarez MD [address] [place] [address] [address] [place], [place] [phone] follow up in 6 months documented as of this encounter Visit Diagnoses Not on filedocumented in this encounter Care Teams Furnace Checker Relationship Specialty Start Date End Date Farhat Cabezas MD PCP - General Family Medicine 01/13/11 Farhat Cabezas MD Referring Family Medicine 01/08/22 documented as of this encounter
--- OUTSIDE RECORDS SUMMARY | 2024-07-20 16:30 | XMS_ITS | Encounter Summary ---
Demographics Address [address] [facility] [place] [address] Home Phone Mobile Phone Email Address Preferred Language ENG Marital Status Single Spiritism Affiliation Unknown Race White Ethnic Group Not or Lati no Author Organization [facility] Address [address] [place] [address] Care Team Providers Care Marketing Development Manager Name Role Phone Farhat Cabezas MD Primary Care Provider [phone] Farhat Cabezas MD Unavailable [phone] Source Comments In the event this information is protected by the Federal Confidentiality of Alcohol and Drug AbusePatient Records regulations: The Federal rules restrict any use of the information to criminally investigate or prosecute any alcohol or drug abuse patient.[facility] Encounter Details Date Type Department Care Team (Late st Contact Info) Description 06/14/2019 Patient Msg BMI [facility] [address] [facility] [place], [place] [phone] Rachel Yi MD [address] [place] [address] Bariatric Labs Social History Tobacco Use Types Packs/Day Years [...] have Coronavirus / COVID-19? Unable to assess 06/13/2019 3:08 PM EDT documented as of this encounter [...] Info) Description 08/30/2024 9:30 AM EDT [facility] End[facility]inology [address] [place] [phone] Greg Nina APRN.HUB BORER [address] [place], [place] [phone] diabetes follow up with me in 3 months virtually 11/20/2024 1:00 PM EDT [facility]ology [address] [place] [address] Valdez Suarez MD [address] [place] [address] [place] [address] follow up in 6 months documented as of this encounter Visit Diagnoses Not on filedocumented in this encounter Care Teams Marketing Development Manager Relationship Specialty Start Date End Date Farhat Cabezas MD PCP - General Family Medicine 01/13/11 Farhat Cabezas MD Referring Family Medicine 01/08/22 documented as of this encounter
--- OUTSIDE RECORDS SUMMARY | 2024-07-20 16:30 | XMS_ITS | Encounter Summary ---
Demographics Address [address] [place] [address] Home Phone Mobile Phone Email Address Preferred Language ENG Marital Status Single Church Affiliation Unknown Race White Ethnic Group Not or Lati no Author Organization [facility] Address [facility] [place] [address] Care Team Providers Care Pan Pusher Name Role Phone Jacob Santillan MD Primary Care Provider Farhat Cabezas MD Primary Care Provider [phone] Farhat Cabezas MD Unavailable [phone] Source Comments In the event this information is protected by the Federal Confidentiality of Alcohol and Drug AbusePatient Records regulations: The Federal rules restrict any use of the information to criminally investigate or prosecute any alcohol or drug abuse patient.[facility] Encounter Details Date Type Department Care Team (Late Contact Info) Description 10/18/2008 Patient Msg Medical Records [address] [place] [address] Provider, Ccf Patient Registration Social History Tobacco Use Types Packs/Day Years [...] Encounters Date Type Department Care Team (Late Contact Info) Description 08/30/2024 9:30 AM EDT [facility] Endocrinology [address] [place] [phone] Greg Nina APRN.ANALYSIS CONSULTANT [address] [place] [address] diabetes follow up with me in 3 months virtually 11/20/2024 1:00 PM EDT [facility] Endocrinology [address] [place] [phone] Valdez Suarez MD [address] [place] [address] [address] [place], [place] [phone] follow up in 6 months documented as of this encounter Visit Diagnoses Not on filedocumented in this encounter Care Teams Pan Pusher Relationship Specialty Start Date End Date Jacob Santillan MD PCP - General 08/05/05 01/12/11 Farhat Cabezas MD PCP - General Family Medicine 01/13/11 Farhat Cabezas MD Referring Family Medicine 01/08/22 documented as of this encounter
--- OUTSIDE RECORDS SUMMARY | 2024-07-20 16:30 | XMS_ITS | Encounter Summary ---
Demographics Address [address] [place] [address] Home Phone Mobile Phone Email Address [employer] Preferred Language ENG Marital Status Single Oriental Orthodox Affiliation Unknown Race White Ethnic Group Not or Lati no Author Organization [facility] Address [facility] [place] [address] Care Team Providers Care Ship'S Carpenter Name Role Phone Jacob Santillan MD Primary Care Provider [phone] Farhat Cabezas MD Primary Care Provider [phone] Faraht Cabezas MD Unavailable [phone] Source Comments In the event this information is protected by the Federal Confidentiality of Alcohol and Drug AbusePatient Records regulations: The Federal rules restrict any use of the information to criminally investigate or prosecute any alcohol or drug abuse patient.[facility] Encounter Details Date Type Department Care Team (Late Contact Info) Description 09/20/2008 Patient Msg Medical Records [address] [place] [address] Provider, Ccf labwork Social History Tobacco Use Types Packs/Day Years [...] Description 08/30/2024 9:30 AM EDT [facility] Endocrinology [address] [place] [phone] Greg Nina APRN.FBI SHARPSHOOTER [address] [place] [address] diabetes follow up with me in 3 months virtually 11/20/2024 1:00 PM EDT [facility] Endocrinology [address] [place] [address] Valdez Suarez MD [address] [place] [address] [address] [place], [place] [phone] follow up in 6 months documented as of this encounter Visit Diagnoses Not on filedocumented in this encounter Care Teams Ship'S Carpenter Relationship Specialty Start Date End Date Jacob Santillan MD PCP - General 08/05/05 01/12/11 Farhat Cabezas MD PCP - General Family Medicine 01/13/11 Farhat Cabezas MD Referring Family Medicine 01/08/22 documented as of this encounter
--- OUTSIDE RECORDS SUMMARY | 2024-07-20 16:31 | XMS_ITS | Encounter Summary ---
Demographics Address [address] [facility] [place] [address] Home Phone Mobile Phone Email Address Preferred Language ENG Marital Status Single Oriental Orthodox Affiliation Unknown Race White Ethnic Group Not or Lati no Author Organization [facility] Address [address] [place] [address] Care Team Providers Care Windows Server Administrator Name Role Phone Farhat Cabezas MD Primary Care Provider [phone] Farhat Cabezas MD Unavailable [phone] Source Comments In the event this information is protected by the Federal Confidentiality of Alcohol and Drug AbusePatient Records regulations: The Federal rules restrict any use of the information to criminally investigate or prosecute any alcohol or drug abuse patient.[facility] Encounter Details Date Type Department Care Team (Late st Contact Info) Description 01/22/2016 Get Medical Advice General Surgery [address] [phone] Marlin Chao (Hist)MD [address] [place] [address] RE: Non-Urgent Medical Question Social [...] Info) Description 08/30/2024 9:30 AM EDT [facility] Endocrinology [address] [place] [phone] Greg Nina APRN.BIKE TECHNICIAN [address] [place], [place] [phone] diabetes follow up with me in 3 months virtually 11/20/2024 1:00 PM EDT [facility] Endocrinology [address] [place] [address] Valdez Suarez MD [address] [place] [address] [address] [place] [phone] follow up in 6 months documented as of this encounter Visit Diagnoses Not on filedocumented in this encounter Care Teams Windows Server Administrator Relationship Specialty Start Date End Date Farhat Cabezas MD PCP - General Family Medicine 01/13/11 Farhat Cabezas MD Referring Family Medicine 01/08/22 documented as of this encounter
--- OUTSIDE RECORDS SUMMARY | 2024-07-20 16:31 | XMS_ITS | Encounter Summary ---
Demographics Address [address] [place] [address] Home Phone Mobile Phone Email Address Preferred Language ENG Marital Status Single Jewish Affiliation Unknown Race White Ethnic Group Not or Lati no Author Organization [facility] Address [address] [place] [address] Care Team Providers Care Kettle Operator Head Name Role Phone Farhat Cabezas MD Primary Care Provider [phone] Farhat Cabezas MD Unavailable Source Comments In the event this information is protected by the Federal Confidentiality of Alcohol and Drug AbusePatient Records regulations: The Federal rules restrict any use of the information to criminally investigate or prosecute any alcohol or drug abuse patient.[facility] Encounter Details Date Type Department Care Team (Late st Contact Info) Description 11/16/2023 [place] [address] Provider, Ccf MRI Screening Questionnaire Completion Required [...] is lower risk 2 12/21/2022 Data from: https://www.neighborhoodatlas.medicine.[facility].edu/. Last address used for calculation [address] [...] Assessment Author No 12/14/2016 12:43 PM EST oMna Cook (Rn) (Hist), RN * Do you [...] Description 08/30/2024 9:30 AM EDT [facility] Endocrinology [address] [place] [phone] Greg Nina APRN.BONE CHAR OPERATOR [address] [place] [address] diabetes follow up with me in 3 months virtually 11/20/2024 1:00 PM EDT [facility] Endocrinology [address] [place] [address] Valdez Suarez MD [address] [place] [address] [place] [address] follow up in 6 months documented as of this encounter Visit Diagnoses Not on filedocumented in this encounter Care Teams Kettle Operator Head Relationship Specialty Start Date End Date Farhat Cabezas MD PCP - General Family Medicine 01/13/11 Farhat Cabezas MD Referring Family Medicine 01/08/22 documented as of this encounter
--- OUTSIDE RECORDS SUMMARY | 2024-07-20 16:31 | XMS_ITS | Encounter Summary ---
Demographics Address [address] [facility] [place] [address] Home Phone Mobile Phone Email Address Preferred Language ENG Marital Status Single Muslim Affiliation Unknown Race White Ethnic Group Not or Lati no Author Organization [facility] Address [address] [place] [address] Care Team Providers Care Commercial Plumber Name Role Phone Farhat Cabezas MD Primary Care Provider [phone] Farhat Cabezas MD Unavailable [phone] Source Comments In the event this information is protected by the Federal Confidentiality of Alcohol and Drug AbusePatient Records regulations: The Federal rules restrict any use of the information to criminally investigate or prosecute any alcohol or drug abuse patient.[facility] Encounter Details Date Type Department Care Team (Late st Contact Info) Description 06/09/2021 Get Medical Advice Endocrinology [address] [place], [place] [phone] Valdez Suarez MD [facility] [employer] [place] [address] Thyroid antboties Social History Tobacco Use Types Packs/Day Years [...] N ot on file 01/16/2020 Data from: https://www.neighborhoodatlas.medicine.[facility].edu/. Last address used for calculation Not [...] suspected to have Coronavirus/COVID-19? No / Unsure 05/28/2021 11:00 AM EDT documented as of this encounter [...] Contact Info) Description 08/30/2024 9:30 AM EDT [facility] Endocrinology [address] [place] [address] Greg Nina APRN.ASSOCIATE STORE MANAGER [address] [place], [place] 2374339 diabetes follow up with me in 3 months virtually 11/20/2024 1:00 PM EDT [facility] Endocrinology [address] [place] [address] Valdez Suarez MD [address] [place] [address] [address] [place], [place] 4238135 follow up in 6 months documented as of this encounter Visit Diagnoses Not on filedocumented in this encounter Care Teams Commercial Plumber Relationship Specialty Start Date End Date Farhat Cabezas MD PCP - General Family Medicine 01/13/11 Farhat Cabezas MD Referring Family Medicine 01/08/22 documented as of this encounter
--- OUTSIDE RECORDS SUMMARY | 2024-07-20 16:31 | XMS_ITS | Encounter Summary ---
Demographics Address [address] [place] [address] Home Phone Mobile Phone Email Address Preferred Language ENG Marital Status Single Sikhism Affiliation Unknown Race White Ethnic Group Not or Lati no Author Organization [facility] Address [address] [place] [address] Care Team Providers Care Respiratory Therapy Manager Name Role Phone Farhat Cabezas MD Primary Care Provider [phone] Farhat Cabezas MD Unavailable [phone] Source Comments In the event this information is protected by the Federal Confidentiality of Alcohol and Drug AbusePatient Records regulations: The Federal rules restrict any use of the information to criminally investigate or prosecute any alcohol or drug abuse patient.[facility] Encounter Details Date Type Department Care Team (Late st Contact Info) Description 06/09/2021 Get Medical Advice Neurology [address] [place] [address] Jaelyn Rangel MD NO FORWARDING ADDRESS MRI with contrast Social History Tobacco Use Types Packs/Day Years [...] N ot on file 01/16/2020 Data from: https://www.neighborhoodatlas.[facility]/. Last address used for calculation [...] DuboseRn) (Hist), RN documented in this encounter Miscellaneous Notes * Telephone Encounter - Nguyen Arnold RN - 06/09/2021 2:00 PM EDT [employer] message routed to provider for review. documented in this encounter Plan of Treatment Upcoming Encounters Date Type Department Care Team (Late st Contact Info) Description 08/30/2024 9:30 AM EDT [facility] Endocrinology [address] [place] [address] Gerg Nina APRN.PARTS ROOM ASSISTANT [address] [place], [place] [phone] diabetes follow up with me in 3 months virtually 11/20/2024 1:00 PM EDT [facility] Endocrinology [address] [place] [address] Valdez Suarez MD [address] [place] [address] [address] [place], [place] 3891235 follow up in 6 months documented as of this encounter Visit Diagnoses Not on filedocumented in this encounter Care Teams Respiratory Therapy Manager Relationship Specialty Start Date End Date Farhat Cabezas MD PCP - General Family Medicine 01/13/11 Farhat Cabezas MD Referring Family Medicine 01/08/22 documented as of this encounter
--- OUTSIDE RECORDS SUMMARY | 2024-07-20 16:31 | XMS_ITS | Encounter Summary ---
Demographics Address [address] [place] [address] Home Phone Mobile Phone Email Address Preferred Language ENG Marital Status Single Oriental Orthodox Affiliation Unknown Race White Ethnic Group Not or Lati no Author Organization [facility] Address [address] [place] [address] Care Team Providers Care Quality Facilitator Name Role Phone Farhat Cabezas MD Primary Care Provider [phone] Farhat Cabezas MD Unavailable [phone] Source Comments In the event this information is protected by the Federal Confidentiality of Alcohol and Drug AbusePatient Records regulations: The Federal rules restrict any use of the information to criminally investigate or prosecute any alcohol or drug abuse patient.[facility] Encounter Details Date Type Department Care Team (Late st Contact Info) Description 05/27/2021 Get Medical Advice BMI [facility] [place]J [address] [place], [place] [phone] Rachel Yi MD [address] [place] [address] weight managment Social History Tobacco Use Types Packs/Day Years [...] N ot on file 01/16/2020 Data from: https://www.neighborhoodatlas.medicine.[facility].edu/. Last address used for calculation Not on [...] AM EDT [facility] Endocrinology [address] [place] [address] Greg Nina APRN.INTERDISCIPLINARY PROFESSOR [address] [place], [place] [phone] diabetes follow up with me in 3 months virtually 11/20/2024 1:00 PM EDT [facility] Endocrinology [address] [place] [address] Valdez Suarez MD [address] [place] [address] [address] [place], [place] [phone] follow up in 6 months documented as of this encounter Visit Diagnoses Not on filedocumented in this encounter Care Teams Quality Facilitator Relationship Specialty Start Date End Date Farhat Cabezas MD PCP - General Family Medicine 01/13/11 Farhat Cabezas MD Referring Family Medicine 01/08/22 documented as of this encounter
--- OUTSIDE RECORDS SUMMARY | 2024-07-20 16:31 | XMS_ITS | Encounter Summary ---
Demographics Address [address] [facility] [place] [address] Home Phone Mobile Phone Email Address Preferred Language ENG Marital Status Single Cheondoism Affiliation Unknown Race White Ethnic Group Not or Lati no Author Organization [facility] Address [address] [place] [address] Care Team Providers Care Abstract Clerk Name Role Phone Farhat Cabezas MD Primary Care Provider [phone] Farhat Cabezas MD Unavailable [phone] Source Comments In the event this information is protected by the Federal Confidentiality of Alcohol and Drug AbusePatient Records regulations: The Federal rules restrict any use of the information to criminally investigate or prosecute any alcohol or drug abuse patient.[facility] Encounter Details Date Type Department Care Team (Late st Contact Info) Description 07/04/2024 [place] [address] Provider, Ccf Phone call fllow up Social History Tobacco Use Types Packs/Day [...] is lower risk 7 03/07/2024 Data from: https://www.neighborhoodatlas.medicine.[facility].edu/ . Last address used for calculation [address] [...] Contact Info) Description 08/30/2024 9:30 AM EDT [facility] Endocrinology [address] [place] [address] Greg Nina APRN.NEEDLE MOLDER [address] [place] [address] diabetes follow up with me in 3 months virtually 11/20/2024 1:00 PM EDT [facility] Endocrinology [address] [place] [address] Valdez Suarez MD [address] [place] [address] follow up in 6 months documented as of this encounter Visit Diagnoses Not on filedocumented in this encounter Care Teams Abstract Clerk Relationship Specialty Start Date End Date Farhat Cabezas MD PCP - General Family Medicine 01/13/11 Farhat Cabezas MD Referring Family Medicine 01/08/22 documented as of this encounter
--- OUTSIDE RECORDS SUMMARY | 2024-07-20 16:31 | XMS_ITS | Encounter Summary ---
Demographics Address [address] [place] [address] Home Phone Mobile Phone Email Address Preferred Language ENG Marital Status Single Jew Affiliation Unknown Race White Ethnic Group Not or Lati no Author Organization [facility] Address [address] [place] [address] Care Team Providers Care Wood Flooring Specialist Name Role Phone Farhat Cabezas MD Primary Care Provider [phone] Farhat Cabezas MD Unavailable [phone] Source Comments In the event this information is protected by the Federal Confidentiality of Alcohol and Drug AbusePatient Records regulations: The Federal rules restrict any use of the information to criminally investigate or prosecute any alcohol or drug abuse patient.[facility] Encounter Details Date Type Department Care Team (Late st Contact Info) Description 07/07/2024 Patient Msg Neurology [address] [place] [address] [place] [address] [place] [address] MRI denial Social History Tobacco Use Types Packs/Day Years [...] risk 7 03/07/2024 Data from: https://www.neighborhoodatlas.medicine.[facility]/ . Last address used for calculation [address] W 03/07/2024 Comments No Sex and Gender [...] 08/30/2024 9:30 AM EDT [facility] [address] [place] [address] Greg Nina APRN.GUIDEMAN [address] [place], [place] 9034439 diabetes follow up with me in 3 months virtually 11/20/2024 1:00 PM EDT [facility] Endocrinology [address] [place] [address] Valdez Suarez MD [address] [place] [address] [address] [place], [place] 4679235 follow up in 6 months documented as of this encounter Visit Diagnoses Not on filedocumented in this encounter Care Teams Wood Flooring Specialist Relationship Specialty Start Date End Date Farhat Cabezas MD PCP - General Family Medicine 01/13/11 Farhat Cabezas MD Referring Family Medicine 01/08/22 documented as of this encounter
--- OUTSIDE RECORDS SUMMARY | 2024-07-20 16:31 | XMS_ITS | Encounter Summary ---
Demographics Address [address] [place] [address] Home Phone Mobile Phone Email Address Preferred Language ENG Marital Status Single Samaritan Affiliation Unknown Race White Ethnic Group Not or Lati no Author Organization [facility] Address [address] [place] [address] Care Team Providers Care Corrugator Machine Operator Name Role Phone Farhat Cabezas MD Primary Care Provider [phone] Farhat Cabezas MD Unavailable [phone] Source Comments In the event this information is protected by the Federal Confidentiality of Alcohol and Drug AbusePatient Records regulations: The Federal rules restrict any use of the information to criminally investigate or prosecute any alcohol or drug abuse patient.[facility] Encounter Details Date Type Department Care Team (Late st Contact Info) Description 05/28/2023 Patient Msg Endocrinology [address] [facility] [place], [place] [address] Valdez Suarez MD [address] [place], [place] [address] [place] [address] Appointment Request Social History Tobacco Use Types [...] is lower risk 2 12/21/2022 Data from: https://www.neighborhoodatlas.[facility]/. Last address used for calculation [address] [...] Info) Description 08/30/2024 9:30 AM EDT [facility] Endocrinology [address] [place] [address] Greg Nina APRN.KEY CUTTER [address] [place] [address] diabetes follow up with me in 3 months virtually 11/20/2024 1:00 PM EDT [facility] Endocrinology [address] [place] [address] Valdez Suarez MD [address] [place] [address] [address] [place], [place] 1617335 follow up in 6 months documented as of this encounter Visit Diagnoses Not on filedocumented in this encounter Care Teams Corrugator Machine Operator Relationship Specialty Start Date End Date Farhat Cabezas MD PCP - General Family Medicine 01/13/11 Farhat Cabezas MD Referring Family Medicine 01/08/22 documented as of this encounter
--- OUTSIDE RECORDS SUMMARY | 2024-07-20 16:31 | XMS_ITS | Encounter Summary ---
Demographics Address [address] [place] [address] Home Phone Mobile Phone Email Address Preferred Language ENG Marital Status Single Shinto Affiliation Unknown Race White Ethnic Group Not or Lati no Author Organization [facility] Address [address] [place] [address] Care Team Providers Care Part Time Name Role Phone Farhat Cabezas MD Primary Care Provider [phone] Farhat Cabezas MD Unavailable [phone] Source Comments In the event this information is protected by the Federal Confidentiality of Alcohol and Drug AbusePatient Records regulations: The Federal rules restrict any use of the information to criminally investigate or prosecute any alcohol or drug abuse patient.[facility] Encounter Details Date Type Department Care Team (Late st Contact Info) Description 10/12/2023 Get Medical Advice Neurology [address] [place] [address] [place] [address] [place] [address] MRI / lab results Social History Tobacco Use Types Packs/Day [...] is lower risk 2 12/21/2022 Data from: https://www.neighborhoodatlas.medicine.[facility]/. Last address used [...] Contact Info) Description 08/30/2024 9:30 AM EDT [facility] Endocrinology [address] [place] [address] Greg Nina APRN.COTTON GROWER [address] [place], [place] 4039339 diabetes follow up with me in 3 months virtually 11/20/2024 1:00 PM EDT [facility] Endocrinology [address] [place] [address] Valdez Suarez MD [address] [place] [address] [address] [place], [place] 415[address]35 follow up in 6 months documented as of this encounter Visit Diagnoses Not on filedocumented in this encounter Care Teams Part Time Relationship Specialty Start Date End Date Farhat Cabezas MD PCP - General Family Medicine 01/13/11 Farhat Cabezas MD Referring Family Medicine 01/08/22 documented as of this encounter
--- OUTSIDE RECORDS SUMMARY | 2024-07-20 16:31 | XMS_ITS | Encounter Summary ---
Demographics Address [address] [facility] [place] [address] Home Phone Mobile Phone Email Address Preferred Language ENG Marital Status Single Faith Affiliation Unknown Race White Ethnic Group Not or Lati no Author Organization [facility] Address [address] [place] [address] Care Team Providers Care Lap Welder Name Role Phone Farhat Cabezas MD Primary Care Provider [phone] Farhat Cabezas MD Unavailable [phone] Source Comments In the event this information is protected by the Federal Confidentiality of Alcohol and Drug AbusePatient Records regulations: The Federal rules restrict any use of the information to criminally investigate or prosecute any alcohol or drug abuse patient.[facility] Reason for Visit * Reason Comments Safemaker - Other Encounter Details Date Type Department Care Team (Late st Contact Info) Description 07/04/2024 Telephone Neurology [address] [place], [place] 6677[address] Thaddeus Diggs MD [address] [place] [address] Safemaker - Other Social History Tobacco Use Types Packs/Day Years [...] is lower risk 7 03/07/2024 Data from: https://www.neighborhoodatlas.medicine.[facility]/ . Last address used for calculation [...] encounter Miscellaneous Notes * Telephone Encounter - Noemy Garcia RN - 07/04/2024 2:[address] Diggs out of office today and tomorrow I called but needs MD to do peer to peer Noemy Garcia RN BSN Neurolog[facility] [place] * Telephone Encounter - Anna Ruiz - 07/04/2024 2:29 PM EDT [employer] rep called stating that P2P for MRI needs to be done by 07/14 - pt is currently scheduledfor MRI tomorrow - P2P needs to be done with [employer] (# ) - pt's case number is #[id number] documented in this encounter Plan of Treatment Upcoming Encounters Date Type Department Care Team (Late st Contact Info) Description 08/30/2024 9:30 AM EDT [facility] Endocrinology [address] [place] [address] Greg Nina APRN.[facility] [address] [place], [place] 3470639 diabetes follow up with me in 3 months virtually 11/20/2024 1:00 PM EDT [facility] Endocrinology [address] [place] [address] Valdez Suarez MD [address] [place] [address] [place], [place] 6915[address] follow up in 6 months documented as of this encounter Visit Diagnoses Not on filedocumented in this encounter Care Teams Lap Welder Relationship Specialty Start Date End Date Farhat Cabezas MD PCP - General Family Medicine 01/13/11 Farhat Cabezas MD Referring Family Medicine 01/08/22 documented as of this encounter
--- OUTSIDE RECORDS SUMMARY | 2024-07-20 16:31 | XMS_ITS | Encounter Summary ---
Demographics Address [address] [facility] [place] [address] Home Phone Mobile Phone Email Address Preferred Language ENG Marital Status Single Rastafari Affiliation Unknown Race White Ethnic Group Not or Lati no Author Organization [facility] Address [address] [place] [address] Care Team Providers Care Tracer Clerk Name Role Phone Farhat Cabezas MD Primary Care Provider [phone] Farhat Cabezas MD Unavailable Source Comments In [...] st Contact Info) Description 05/28/2023 Patient Msg Cardiology [address] [place], [place] [address] Ellyn Barraza, STATISTICAL PROGRAMMER.FLIGHT OPERATIONS MANAGER [address] [place], [place] [address]35 Appointment Request Social History Tobacco Use Types [...] is lower risk 2 12/21/2022 Data from: https://www.neighborhoodatlas.[facility].edu/. Last address used for calculation [address] [...] 08/30/2024 9:30 AM EDT [facility] [address] [place] [address] Greg Nina APRN.FLIGHT OPERATIONS MANAGER [address] [place], [place] [phone] diabetes follow up with me in 3 months virtually 11/20/2024 1:00 PM EDT [facility] Endocrinology [address] [place] [address] Valdez Suarez MD [address] [place] [address] [place], [place] 0476635 follow up in 6 months documented as of this encounter Visit Diagnoses Not on filedocumented in this encounter Care Teams Tracer Clerk Relationship Specialty Start Date End Date Farhat Cabezas MD PCP - General Family Medicine 01/13/11 Farhat Cabezas MD Referring Family Medicine 01/08/22 documented as of this encounter
--- OUTSIDE RECORDS SUMMARY | 2024-07-20 16:31 | XMS_ITS | Encounter Summary ---
Demographics Address [address] [facility] [place] [address] Home Phone Mobile Phone Email Address Preferred Language ENG Marital Status Single Buddhism Affiliation Unknown Race White Ethnic Group Not or Lati no Author Organization [facility] Address [address] [place] [address] Care Team Providers Care Letterer Name Role Phone Farhat Cabezas MD Primary Care Provider [phone] Farhat Cabezas MD Unavailable [phone] Source Comments In the event this information is protected by the Federal Confidentiality of Alcohol and Drug AbusePatient Records regulations: The Federal rules restrict any use of the information to criminally investigate or prosecute any alcohol or drug abuse patient.[facility] Encounter Details Date Type Department Care Team (Late st Contact Info) Description 07/03/2024 [place] [address] Provider, Ccf MRI Screening Questionnaire Completion Required [...] is lower risk 7 03/07/2024 Data from: https://www.neighborhoodatlas.medicine.[facility].edu/ . Last address used for calculation [...] Contact Info) Description 08/30/2024 9:[address] [facility] Endocrinology [address] [place] [address] Greg Nina APRN.TOGGLE PRESS FOLDER AND FEEDER [address] [place] [address] diabetes follow up with me in 3 months virtually 11/20/2024 1:00 PM EDT [facility] Endocrinology [address] [place] [address] Valdez Suarez MD [address] [place] [place] [address] follow up in 6 months documented as of this encounter Visit Diagnoses Not on filedocumented in this encounter Care Teams Letterer Relationship Specialty Start Date End Date Farhat Cabezas MD PCP - General Family Medicine 01/13/11 Farhat Cabezas MD Referring Family Medicine 01/08/22 documented as of this encounter
--- OUTSIDE RECORDS SUMMARY | 2024-07-20 16:31 | XMS_ITS | Encounter Summary ---
Demographics Address [address] [place] [address] Home Phone Mobile Phone Email Address Preferred Language ENG Marital Status Single Confucianist Affiliation Unknown Race White Ethnic Group Not or Lati no Author Organization [facility] Address [address] [place] [address] Care Team Providers Care Blueprint Engineer Name Role Phone Farhat Cabezas MD Primary Care Provider [phone] Farhat Cabezas MD Unavailable [phone] Source Comments In the event this information is protected by the Federal Confidentiality of Alcohol and Drug AbusePatient Records regulations: The Federal rules restrict any use of the information to criminally investigate or prosecute any alcohol or drug abuse patient.[facility] Encounter Details Date Type Department Care Team (Late st Contact Info) Description 12/20/2023 [place] [address] Provider, Ccf MRI Screening Questionnaire Completion Required [...] is lower risk 2 12/21/2022 Data from: https://www.neighborhoodatlas.medicine.[facility].edu/. Last address used for calculation [address] [...] Contact Info) Description 08/30/2024 9:30 AM EDT [facility] Endocrinology [address] [place] [address] Greg Nina APRN.OIL WELL CABLE TOOL DRILLER [address] [place] [address] diabetes follow up with me in 3 months virtually 11/20/2024 1:00 PM EDT [facility] [address] [place] [address] Valdez Suarez MD [address] [place] [address] [place] [address] follow up in 6 months documented as of this encounter Visit Diagnoses Not on filedocumented in this encounter Care Teams Blueprint Engineer Relationship Specialty Start Date End Date Farhat Cabezas MD PCP - General Family Medicine 01/13/11 Farhat Cabezas MD Referring Family Medicine 01/08/22 documented as of this encounter
--- OUTSIDE RECORDS SUMMARY | 2024-07-20 16:31 | XMS_ITS | Encounter Summary ---
Demographics Address [address] [facility] [place] [address] Home Phone Mobile Phone Email Address Preferred Language ENG Marital Status Single Sabianism Affiliation Unknown Race White Ethnic Group Not or Lati no Author Organization [facility] Address [address] [place] [address] Care Team Providers Care Ergonomic Specialist Name Role Phone Farhat Cabezas MD Primary Care Provider [phone] Farhat Cabezas MD Unavailable [phone] Source Comments In the event this information is protected by the Federal Confidentiality of Alcohol and Drug AbusePatient Records regulations: The Federal rules restrict any use of the information to criminally investigate or prosecute any alcohol or drug abuse patient.[facility] Encounter Details Date Type Department Care Team (Late st Contact Info) Description 03/07/2024 [place] [address] Provider, Ccf MRI Screening Questionnaire Completion Required [...] is lower risk 7 03/07/2024 Data from: https://www.neighborhoodatlas.medicine.[facility].edu/ . Last address used for calculation [...] Assessment Author No 12/14/2016 12:43 PM Mona Duboes (Rn) (Hist), RN documented as of this [...] 08/30/2024 9:30 AM EDT [facility] Endocrinology [address] [place] [address] Greg Nina APRN.VOUCHER CLERK [address] [place] [address] diabetes follow up with me in 3 months virtually 11/20/2024 1:00 PM EDT [facility] Endocrinology [address] [place] [address] Valdez Suarez MD [address] [facility] [place] [address] follow up in 6 months documented as of this encounter Visit Diagnoses Not on filedocumented in this encounter Care Teams Ergonomic Specialist Relationship Specialty Start Date End Date Farhat Cabezas MD PCP - General Family Medicine 01/13/11 Farhat Cabezas MD Referring Family Medicine 01/08/22 documented as of this encounter
--- OUTSIDE RECORDS SUMMARY | 2024-07-20 16:31 | XMS_ITS | Encounter Summary ---
Demographics Address [address] [facility] [place] [address] Home Phone Mobile Phone Email Address Preferred Language ENG Marital Status Single Pentecostal Affiliation Unknown Race White Ethnic Group Not or Lati no Author Organization [facility] Address [address] [place] [address] Care Team Providers Care Mechanical System Technician Name Role Phone Farhat Cabezas MD Primary Care Provider [phone] Farhat Cabezas MD Unavailable [phone] Source Comments In the event this information is protected by the Federal Confidentiality of Alcohol and Drug AbusePatient Records regulations: The Federal rules restrict any use of the information to criminally investigate or prosecute any alcohol or drug abuse patient.[facility] Encounter Details Date Type Department Care Team (Late st Contact Info) Description 07/19/2023 Patient Msg Cardiology [address] [facility] [place] [phone] Ellyn Barraza, MANAGER STORAGE.FAST FOOD CREW MEMBER [address] [place] [address] Appointment Request Social History Tobacco Use [...] is lower risk 2 12/21/2022 Data from: https://www.neighborhoodatlas.[facility].edu/. Last address used for calculation 543 [...] 08/30/2024 9:30 AM EDT [facility] [address] [place] [address] Greg Nina APRN.FAST FOOD CREW MEMBER [address] [place], [place] 8645439 diabetes follow up with me in 3 months virtually 11/20/2024 1:00 PM EDT [facility] Endocrinology [address] [place] [address] Valdez Suarez MD [address] [place] [address] [address] [place], [place] 20[address] follow up in 6 months documented as of this encounter Visit Diagnoses Not on filedocumented in this encounter Care Teams Mechanical System Technician Relationship Specialty Start Date End Date Farhat Cabezas MD PCP - General Family Medicine 01/13/11 Farhat Cabezas MD Referring Family Medicine 01/08/22 documented as of this encounter
--- OUTSIDE RECORDS SUMMARY | 2024-07-20 16:31 | XMS_ITS | Encounter Summary ---
Demographics Address [address] [facility] [place] [address] Home Phone Mobile Phone Email Address Preferred Language ENG Marital Status Single Advent Affiliation Unknown Race White Ethnic Group Not or Lati no Author Organization [facility] Address [address] [place] [address] Care Team Providers Care Casino Beverage Server Name Role Phone Farhat Cabezas MD Primary Care Provider [phone] Farhat Cabezas MD Unavailable [phone] Source Comments In the event this information is protected by the Federal Confidentiality of Alcohol and Drug AbusePatient Records regulations: The Federal rules restrict any use of the information to criminally investigate or prosecute any alcohol or drug abuse patient.[facility] Encounter Details Date Type Department Care Team (Late st Contact Info) Description 03/08/2024 Patient Msg Radiology [address] [place] [address] Provider, Ccf MRI Questionnaire Social History Tobacco Use Types Packs/Day Years [...] is lower risk 7 03/07/2024 Data from: https://www.[facility]/ . Last address used for calculation [...] 08/30/2024 9:30 AM EDT [facility] Endocrinology [address] [place] [address] Greg Nina APRN.COIL TAPER [address] [place] [address] diabetes follow up with me in 3 months virtually 11/20/2024 1:00 PM EDT [facility] Endocrinology [address] [place] [address] Valdez Suarez MD [address] [place] [address] [address] [place], [place] 9792535 follow up in 6 months documented as of this encounter Visit Diagnoses Not on filedocumented in this encounter Care Teams Casino Beverage Server Relationship Specialty Start Date End Date Farhat Cabezas MD PCP - General Family Medicine 01/13/11 Farhat Cabezas MD Referring Family Medicine 01/08/22 documented as of this encounter
--- OUTSIDE RECORDS SUMMARY | 2024-07-20 16:31 | XMS_ITS | Encounter Summary ---
Demographics Address [address] [facility] [place] [address] Home Phone Mobile Phone Email Address Preferred Language ENG Marital Status Single Scientologist Affiliation Unknown Race White Ethnic Group Not or Lati no Author Organization [facility] Address [address] [place] [address] Care Team Providers Care Shipping Agent Name Role Phone Farhat Cabezas MD Primary Care Provider [phone] Farhat Cabezas MD Unavailable [phone] Source Comments In the event this information is protected by the Federal Confidentiality of Alcohol and Drug AbusePatient Records regulations: The Federal rules restrict any use of the information to criminally investigate or prosecute any alcohol or drug abuse patient.[facility] Encounter Details Date Type Department Care Team (Late st Contact Info) Description 04/22/2021 Get Medical Advice Endocrinology [address] [place], [place] [phone] Valdez Suarez MD [address] [facility] [address] [address] [place], [place] [phone] Suspicious nodule / thyroid Social History Tobacco Use Types Packs/Day Years [...] N ot on file 01/16/2020 Data from: https://www.neighborhoodatlas.medicine.[facility].edu/. Last address used for calculation [...] have Coronavirus / COVID-19? No / Unsure 04/15/2021 3:52 PM EST documented as of this encounter [...] encounter Miscellaneous Notes * Telephone Encounter - Kristi Marquez - 04/29/2021 12:18 PM EDT Called and spoke with patient. Patient denied to schedule at this time and will be sending a message To Dr. Suarez. * Telephone Encounter - Valdez Suarez MD - 04/28/2021 3:20 PM EDT Had US on 04/19/21 that showed 8mm isoechoic right thyroid nodule. Would just plan to monitor this with repeat US in 6 months, sent Octavian message documented in this encounter Plan of Treatment Upcoming Encounters Date Type Department Care Team (Late st Contact Info) Description 08/30/2024 9:30 AM EDT [facility] Endocrinology [address] [place] [phone] Gerg Nina APRN.[facility] [address] [place] [address] diabetes follow up with me in 3 months virtually 11/20/2024 1:00 PM EDT [facility] Endocrinology [address] [place] [address] Valdez Suarez MD [address] [place] [address] [address] [place], [place] [phone] follow up in 6 months documented as of this encounter Visit Diagnoses Diagnosis Hx of papillary thyroid carcinoma- Primary Personal history of malignant neoplasm of thyroid documented in this encounter Care Teams Shipping Agent Relationship Specialty Start Date End Date Farhat Cabezas MD PCP - General Family Medicine 01/13/11 Farhat Cabezas MD Referring Family Medicine 01/08/22 documented as of this encounter
--- OUTSIDE RECORDS SUMMARY | 2024-07-20 16:31 | XMS_ITS | Encounter Summary ---
Demographics Address [address] [facility] [place] [address] Home Phone Mobile Phone Email Address Preferred Language ENG Marital Status Single Mormon Affiliation Unknown Race White Ethnic Group Not or Lati no Author Organization [facility] Address [address] [place] [address] Care Team Providers Care Receptionist Clerk Name Role Phone Farhat Cabezas MD Primary Care Provider [phone] Farhat Cabezas MD Unavailable [phone] Source Comments In the event this information is protected by the Federal Confidentiality of Alcohol and Drug AbusePatient Records regulations: The Federal rules restrict any use of the information to criminally investigate or prosecute any alcohol or drug abuse patient.[facility] Encounter Details Date Type Department Care Team (Late st Contact Info) Description 07/15/2022 Patient Msg Endocrinology [address] [place] [address] Provider, Ccf [facility] Portal Social History Tobacco Use Types Packs/Day Years [...] is lower risk 4 06/11/2022 Data from: https://www.neighborhoodatlas.[facility]/. Last address used for calculation [address] 06/11/2022 Comments No Sex and Gender [...] 08/30/2024 9:30 AM EDT [facility] Endocrinology [address] [place] [address] Greg Nina APRN.LICENSE EXAMINER [address] [place] [address] diabetes follow up with me in 3 months virtually 11/20/2024 1:00 PM EDT [facility] Endocrinology [address] [place] [phone] Valdez Suarez MD [address] [place] [address] [address] [place], [place] [phone] follow up in 6 months documented as of this encounter Visit Diagnoses Not on filedocumented in this encounter Care Teams Receptionist Clerk Relationship Specialty Start Date End Date Farhat Cabezas MD PCP - General Family Medicine 01/13/11 Farhat Cabezas MD Referring Family Medicine 01/08/22 documented as of this encounter
--- OUTSIDE RECORDS SUMMARY | 2024-07-20 16:31 | XMS_ITS | Encounter Summary ---
Demographics Address [address] [address] Home Phone Mobile Phone Email Address Preferred Language ENG Marital Status Single Yazdanism Affiliation Unknown Race White Ethnic Group Not or Lati no Author Organization [facility] Address [address] [place] [address] Care Team Providers Care Piece Work Checker Name Role Phone Farhat Cabezas MD Primary Care Provider [phone] Farhat Cabezas MD Unavailable [phone] Source Comments In the event this information is protected by the Federal Confidentiality of Alcohol and Drug AbusePatient Records regulations: The Federal rules restrict any use of the information to criminally investigate or prosecute any alcohol or drug abuse patient.[facility] Encounter Details Date Type Department Care Team (Late st Contact Info) Description 08/25/2023 Patient Msg Neurology [address] [place] [address] [place] [address] [place] [address] Appointment Request Social History Tobacco Use Types [...] risk 2 12/21/2022 Data from: https://www.neighborhoodatlas.medicine.[facility]/. Last address used for calculation [...] EDT [facility] Endocrinology [address] [place] [phone] Greg Nina APRN.PROGRESSIVE DIE MAKER [address] [place], [place] [phone] diabetes follow up with me in 3 months virtually 11/20/2024 1:00 PM EDT [facility] Endocrinology [address] [place] [address] Valdez Suarez MD [address] [place] [address] [address] [place], [place] [phone] follow up in 6 months documented as of this encounter Visit Diagnoses Not on filedocumented in this encounter Care Teams Piece Work Checker Relationship Specialty Start Date End Date Farhat Cabezas MD PCP - General Family Medicine 01/13/11 Farhat Cabezas MD Referring Family Medicine 01/08/22 documented as of this encounter
--- OUTSIDE RECORDS SUMMARY | 2024-07-20 16:31 | XMS_ITS | Encounter Summary ---
Demographics Address [address] [facility] [place] [address] Home Phone Mobile Phone Email Address Preferred Language ENG Marital Status Single Congregational Affiliation Unknown Race White Ethnic Group Not or Lati no Author Organization [facility] Address [address] [place] [address] Care Team Providers Care Critical Systems Technician Name Role Phone Farhat Cabezas MD Primary Care Provider [phone] Farhta Cabezas MD Unavailable [phone] Source Comments In the event this information is protected by the Federal Confidentiality of Alcohol and Drug AbusePatient Records regulations: The Federal rules restrict any use of the information to criminally investigate or prosecute any alcohol or drug abuse patient.[facility] Encounter Details Date Type Department Care Team (Late st Contact Info) Description 05/28/2023 Patient Msg Endocrinology [address] [place] [address] Vinicius Márquez, VEGETABLE SCULLION.SUPERVISING APPRAISER [address] [place] [address] Appointment Request Social History Tobacco Use Types [...] is lower risk 2 12/21/2022 Data from: https://www.neighborhoodatlas.[facility]/. Last address used for calculation [address] [...] 08/30/2024 9:30 AM EDT [facility] Endocrinology [address] [place] [address] Greg Nina APRN.SUPERVISING APPRAISER [address] [place] [address] diabetes follow up with me in 3 months virtually 11/20/2024 1:00 PM EDT [facility] Endocrinology [address] [place] [address] Valdez Suarez MD [address] [place] [address] [place] [address] follow up in 6 months documented as of this encounter Visit Diagnoses Not on filedocumented in this encounter Care Teams Critical Systems Technician Relationship Specialty Start Date End Date Farhat Cabezas MD PCP - General Family Medicine 01/13/11 Farhat Cabezas MD Referring Family Medicine 01/08/22 documented as of this encounter
--- OUTSIDE RECORDS SUMMARY | 2024-07-20 16:31 | XMS_ITS | Encounter Summary ---
Demographics Address [address] [place] [address] Home Phone Mobile Phone Email Address Preferred Language ENG Marital Status Single Uatsdin Affiliation Unknown Race White Ethnic Group Not or Lati no Author Organization [facility] Address [address] [place] [address] Care Team Providers Care Full Stack Net Developer Name Role Phone Farhat Cabezas MD Primary Care Provider [phone] Farhat Cabezas MD Unavailable [phone] Source Comments In the event this information is protected by the Federal Confidentiality of Alcohol and Drug AbusePatient Records regulations: The Federal rules restrict any use of the information to criminally investigate or prosecute any alcohol or drug abuse patient.[facility] Encounter Details Date Type Department Care Team (Late st Contact Info) Description 12/26/2023 [place] [address] Provider, Ccf MRI Screening Questionnaire Completion Required [...] risk 2 12/21/2022 Data from: https://www.neighborhoodatlas.medicine.[facility].edu/. Last address used for calculation [address] [...] Info) Description 08/30/2024 9:30 AM EDT [facility] Endocrinology [address] [place] [phone] Greg Nina APRN.ACID CLEANER [address] [place] [address] diabetes follow up with me in 3 months virtually 11/20/2024 1:00 PM EDT [facility] Endocrinology [address] [place] [address] Valdez Suarez MD [address] [place] [address] [place] [address] follow up in 6 months documented as of this encounter Visit Diagnoses Not on filedocumented in this encounter Care Teams Full Stack Net Developer Relationship Specialty Start Date End Date Farhat Cabezas MD PCP - General Family Medicine 01/13/11 Farhat Cabezas MD Referring Family Medicine 01/08/22 documented as of this encounter
--- OUTSIDE RECORDS SUMMARY | 2024-07-20 16:31 | XMS_ITS | Encounter Summary ---
Demographics Address [address] [place] [address] Home Phone Mobile Phone Email Address Preferred Language ENG Marital Status Single Mandaen Affiliation Unknown Race White Ethnic Group Not or Lati no Author Organization [facility] Address [address] [place] [address] Care Team Providers Care Associate Professor Of Communication Name Role Phone Farhat Cabezas MD Primary Care Provider [phone] Farhat Cabezas MD Unavailable [phone] Source Comments In the event this information is protected by the Federal Confidentiality of Alcohol and Drug AbusePatient Records regulations: The Federal rules restrict any use of the information to criminally investigate or prosecute any alcohol or drug abuse patient.[facility] Encounter Details Date Type Department Care Team (Late st Contact Info) Description 02/15/2024 [place] [address] Provider, [facility]cf MRI Screening Questionnaire Completion Required [...] risk 2 12/21/2022 Data from: https://www.neighborhoodatlas.medicine.[facility].edu/. Last address used for calculation [address] [...] Assessment Author No 12/14/2016 12:43 PM Mona Duobse (Rn) (Hist), RN * Do you have [...] Info) Description 08/30/2024 9:30 AM EDT [facility] Endocrinology [address] [place] [address] Greg Nina APRN.PERSONNEL RESEARCH PSYCHOLOGIST [address] [place] [address] diabetes follow up with me in 3 months virtually 11/20/2024 1:00 PM EDT [facility] Endocrinology [address] [place] [address] Valdez Suarez MD [address] [place] [address] [place] [address] follow up in 6 months documented as of this encounter Visit Diagnoses Not on filedocumented in this encounter Care Teams Associate Professor Of Communication Relationship Specialty Start Date End Date Farhat Cabezas MD PCP - General Family Medicine 01/13/11 Farhat Cabezas MD Referring Family Medicine 01/08/22 documented as of this encounter
--- OUTSIDE RECORDS SUMMARY | 2024-07-20 16:31 | XMS_ITS | Encounter Summary ---
Demographics Address [address] [facility] [place] [address] Home Phone Mobile Phone Email Address Preferred Language ENG Marital Status Single Christian Affiliation Unknown Race White Ethnic Group Not or Lati no Author Organization [facility] Address [address] [place] [address] Care Team Providers Care Appellate Law Clerk Name Role Phone Farhat Cabezas MD Primary Care Provider [phone] Farhat Cabezas MD Unavailable [phone] Source Comments In the event this information is protected by the Federal Confidentiality of Alcohol and Drug AbusePatient Records regulations: The Federal rules restrict any use of the information to criminally investigate or prosecute any alcohol or drug abuse patient.[facility] Encounter Details Date Type Department Care Team (Late st Contact Info) Description 07/04/2024 Patient Msg Neurology [address] [place] [address] Provider, Ccf from Dr Duenas office Social History Tobacco Use Types Packs/Day Years [...] is lower risk 7 03/07/2024 Data from: https://www.berger hospitalatlas.[facility]/ . Last address used for calculation [address] [...] Info) Description 08/30/2024 9:30 AM EDT [facility] Endocrinology [address] [place] [address] Greg Nina APRN.ACCOUNTS PAYABLE LEAD [address] [place] [address] diabetes follow up with me in 3 months virtually 11/20/2024 1:00 PM EDT [facility] Endocrinology [address] [place] [address] Valdez Suarez MD [address] [place] [address] [address] [place], [place] 4444[address] follow up in 6 months documented as of this encounter Visit Diagnoses Not on filedocumented in this encounter Care Teams Appellate Law Clerk Relationship Specialty Start Date End Date Farhat Cabezas MD PCP - General Family Medicine 01/13/11 Farhat Cabezas MD Referring Family Medicine 01/08/22 documented as of this encounter
--- OUTSIDE RECORDS SUMMARY | 2024-07-20 16:31 | XMS_ITS | Encounter Summary ---
Demographics Address [address] [facility] [place] [address] Home Phone Mobile Phone Email Address Preferred Language ENG Marital Status Single Lutheran Affiliation Unknown Race White Ethnic Group Not or Lati no Author Organization [facility] Address [address] [place] [address] Care Team Providers Care Advertising Intern Name Role Phone Farhat Cabezas MD Primary Care Provider [phone] Farhat Cabezas MD Unavailable [phone] Source Comments In the event this information is protected by the Federal Confidentiality of Alcohol and Drug AbusePatient Records regulations: The Federal rules restrict any use of the information to criminally investigate or prosecute any alcohol or drug abuse patient.[facility] Encounter Details Date Type Department Care Team (Late st Contact Info) Description 05/25/2021 Patient M[facility] [address] [place], [place] [address] Provider, Ccf Request an Appointment Social History [...] N ot on file 01/16/2020 Data from: https://www.neighborhoodatlas.[facility]/. Last address used for calculation [...] Contact Info) Description 08/30/2024 9:30 AM EDT [facility] Endocrinology [address] [place] [address] Greg Nina APRN.LEAD EMBEDDED SOFTWARE ENGINEER [address] [place] [address] diabetes follow up with me in 3 months virtually 11/20/2024 1:00 PM EDT [facility] Endocrinology [address] [place] [address] Valdez Suarez MD [address] [place] [address] [address] [place], [place] [address] follow up in 6 months documented as of this encounter Visit Diagnoses Not on filedocumented in this encounter Care Teams Advertising Intern Relationship Specialty Start Date End Date Farhat Cabezas MD PCP - General Family Medicine 01/13/11 Farhat Cabezas MD Referring Family Medicine 01/08/22 documented as of this encounter
--- OUTSIDE RECORDS SUMMARY | 2024-07-20 16:31 | XMS_ITS | Encounter Summary ---
Demographics Address [address] [facility] [place] [address] Home Phone Mobile Phone Email Address Preferred Language ENG Marital Status Single Hinduism Affiliation Unknown Race White Ethnic Group Not or Lati no Author Organization [facility] Address [address] [place] [address] Care Team Providers Care Professor Of Pathology Name Role Phone Farhat Cabezas MD Primary Care Provider [phone] Farhat Cabezas MD Unavailable [phone] Source Comments In the event this information is protected by the Federal Confidentiality of Alcohol and Drug AbusePatient Records regulations: The Federal rules restrict any use of the information to criminally investigate or prosecute any alcohol or drug abuse patient.[facility] Encounter Details Date Type Department Care Team (Late st Contact Info) Description 08/01/2021 Patient Msg Rheumatology [address] [address] Lorenzo Perry DO [address] [place] [phone] Request an Appointment Social History Tobacco Use [...] N ot on file 07/19/2021 Data from: https://www.neighborhoodatlas.medicine.[facility].edu/. Last address used for calculation [address] 07/19/2021 Comments No Sex and Gender Information Value Date Recorded Sex Assigned at Not on file Legal Sex Female 9:47 AM EST Gender Identity Not on file Sexual Orientation Not on file COVID-19 Exposure Response Date Recorded In the last 10 days, have yo u been in contact with someone who was confirmed or suspected to have Coronavirus/COVID-19? No / Unsure 08/04/2021 4:19 PM EDT documented as of this encounter Functional Status * Are you deaf or do you have serious difficulty hearing? Answer Date of Assessment Author No 12/14/2016 12:43 PM Mona Dubose (Rn) (Hist), RN * Are you blind or do you have serious difficulty seeing, even when wearing glasses? Answer Date of Assessment Author No 12/14/2016 12:43 PM Mona Dbuose (Rn) (Hist), RN * Do you have [...] Description 08/30/2024 9:30 AM EDT [facility] Endocrinology [address] [place] [address] Greg Nina APRN.TELEPHONE SERVICE ADVISER [address] [place], [place] 8872639 diabetes follow up with me in 3 months virtually 11/20/2024 1:00 PM EDT [facility] Endocrinology [address] [place] [address] Valdez Suarez MD [address] [place] [address] [address] [place], [place] 5737935 follow up in 6 months documented as of this encounter Visit Diagnoses Not on filedocumented in this encounter Care Teams Professor Of Pathology Relationship Specialty Start Date End Date Farhat Cabezas MD PCP - General Family Medicine 01/13/11 Farhat Cabezas MD Referring Family Medicine 01/08/22 documented as of this encounter
--- OUTSIDE RECORDS SUMMARY | 2024-07-20 16:31 | XMS_ITS | Encounter Summary ---
Demographics Address [address] [facility] [place] [address] Home Phone Mobile Phone Email Address Preferred Language ENG Marital Status Single Judaism Affiliation Unknown Race White Ethnic Group Not or Lati no Author Organization [facility] Address [address] [place] [address] Care Team Providers Care Reach Lift Truck Driver Name Role Phone Farhat Cabezas MD Primary Care Provider [phone] aFrhat Cabezas MD Unavailable [phone] Source Comments In the event this information is protected by the Federal Confidentiality of Alcohol and Drug AbusePatient Records regulations: The Federal rules restrict any use of the information to criminally investigate or prosecute any alcohol or drug abuse patient.[facility] Encounter Details Date Type Department Care Team (Late st Contact Info) Description 08/01/2021 Patient M[address] [facility] [address] [place], [place] [address] Provider, Ccf Appointment Request Social History Tobacco [...] N ot on file 07/19/2021 Data from: https://www.neighborhoodatlas.[facility]/. Last address used for calculation [address] 07/19/2021 Comments No Sex and Gender [...] Contact Info) Description 08/30/2024 9:30 AM EDT [facility] Endocrinology [address] [place] [address] Greg Nina, MARITZA.TERMITE EXTERMINATOR [address] [place] [address] diabetes follow up with me in 3 months virtually 11/20/2024 1:00 PM EDT [facility] Endocrinology [address] [place] [address] Valdez Suarez MD [address] [place] [address] [address] [place], [place] [phone] follow up in 6 months documented as of this encounter Visit Diagnoses Not on filedocumented in this encounter Care Teams Reach Lift Truck Driver Relationship Specialty Start Date End Date aFrhat Cabezas MD PCP - General Family Medicine 01/13/11 Farhat Cabezas MD Referring Family Medicine 01/08/22 documented as of this encounter
--- OUTSIDE RECORDS SUMMARY | 2024-07-20 16:31 | XMS_ITS | Encounter Summary ---
Demographics Address [address] [place] [address] Home Phone Mobile Phone Email Address Preferred Language ENG Marital Status Single Baptist Affiliation Unknown Race White Ethnic Group Not or Lati no Author Organization [facility] Address [address] [place] [address] Care Team Providers Care Touch Up Carver Name Role Phone Farhat Cabezas MD Primary Care Provider [phone] Farhat Cabezas MD Unavailable [phone] Source Comments In the event this information is protected by the Federal Confidentiality of Alcohol and Drug AbusePatient Records regulations: The Federal rules restrict any use of the information to criminally investigate or prosecute any alcohol or drug abuse patient.[facility] Encounter Details Date Type Department Care Team (Late st Contact Info) Description 02/04/2024 Patient [facility] -[address] [place] [address] Renetta Moore RPh At your next appointment, choose [facility]. Social History Tobacco Use Types Packs/Day [...] is lower risk 2 12/21/2022 Data from: https://www.neighborhoodatlas.[facility]/. Last address used for calculation [address] [...] AM EDT [facility] Endocrinology [address] [place] [address] Greg Nina APRN.STEWARD/STEWARDESS WINE [address] [place] [address] diabetes follow up with me in 3 months virtually 11/20/2024 1:00 PM EDT Distance [facility] Endocrinology [address] [place] [address] Valdez Suarez MD [address] [place] [address] [address] [place], [place] 6909335 follow up in 6 months documented as of this encounter Visit Diagnoses Not on filedocumented in this encounter Care Teams Touch Up Carver Relationship Specialty Start Date End Date Farhat Cabezas MD PCP - General Family Medicine 01/13/11 Farhat Cabezas MD Referring Family Medicine 01/08/22 documented as of this encounter
--- OUTSIDE RECORDS SUMMARY | 2024-07-20 16:31 | XMS_ITS | Encounter Summary ---
Demographics Address [address] [facility] [place] [address] Home Phone Mobile Phone Email Address Preferred Language ENG Marital Status Single Moravian Affiliation Unknown Race White Ethnic Group Not or Lati no Author Organization [facility] Address [address] [place] [address] Care Team Providers Care Receiving Barn Custodian Name Role Phone Farhat Cabezas MD Primary Care Provider [phone] Farhat Cabezas MD Unavailable [phone] Source Comments In the event this information is protected by the Federal Confidentiality of Alcohol and Drug AbusePatient Records regulations: The Federal rules restrict any use of the information to criminally investigate or prosecute any alcohol or drug abuse patient.[facility] Encounter Details Date Type Department Care Team (Late st Contact Info) Description 10/05/2023 Patient Msg Cardiology [address] [facility] [place] [address] Provider, Ccf Appointment needs scheduling Social History Tobacco Use Types Packs/Day Years [...] is lower risk 2 12/21/2022 Data from: https://www.[facility]/. Last address used for [...] Contact Info) Description 08/30/2024 9:30 AM EDT [facility] Endocrinology [address] [place] [address] Greg Nina APRN.KEY ACCOUNT MANAGER [address] [place] [address] diabetes follow up with me in 3 months virtually 11/20/2024 1:00 PM EDT Distance [facility] Endocrinology [address] [place] [phone] Valdez Suarez MD [address] [place] [address] [place], [place] [id number] follow up in 6 months documented as of this encounter Visit Diagnoses Not on filedocumented in this encounter Care Teams Receiving Barn Custodian Relationship Specialty Start Date End Date Farhat Cabezas MD PCP - General Family Medicine 01/13/11 Farhat Cabezas MD Referring Family Medicine 01/08/22 documented as of this encounter
--- OUTSIDE RECORDS SUMMARY | 2024-07-20 16:31 | XMS_ITS | Encounter Summary ---
Demographics Address [address] [place] [address] Home Phone Mobile Phone Email Address Preferred Language ENG Marital Status Single Amish Affiliation Unknown Race White Ethnic Group Not or Lati no Author Organization [facility] Address [address] [place] [address] Care Team Providers Care Supervisor Reclamation Name Role Phone Farhat Cabezas MD Primary Care Provider [phone] Farhat Cabezas MD Unavailable [phone] Source Comments In the event this information is protected by the Federal Confidentiality of Alcohol and Drug AbusePatient Records regulations: The Federal rules restrict any use of the information to criminally investigate or prosecute any alcohol or drug abuse patient.[facility] Encounter Details Date Type Department Care Team (Late st Contact Info) Description 11/15/2023 Patient Msg Cardiology [address] [place] [address] Provider, Sheldon Abreu 11/16 Appointment Canceled Social History Tobacco Use Types Packs/Day Years [...] is lower risk 2 12/21/2022 Data from: https://www.neighborhoodatlas.[facility]/. Last address used for calculation [address] [...] Info) Description 08/30/2024 9:30 AM EDT [facility] Endocrinology [address] [place] [address] Greg Nina APRN.PRE KINDERGARTEN TEACHER [address] [place] [address] diabetes follow up with me in 3 months virtually 11/20/2024 1:00 PM EDT Distance [facility] Endocrinology [address] [place] [address] Valdez Suarez MD [address] [place] [address] [address] [place], [place] 3597435 follow up in 6 months documented as of this encounter Visit Diagnoses Not on filedocumented in this encounter Care Teams Supervisor Reclamation Relationship Specialty Start Date End Date Farhat Cabezas MD PCP - General Family Medicine 01/13/11 Farhat Cabezas MD Referring Family Medicine 01/08/22 documented as of this encounter
--- OUTSIDE RECORDS SUMMARY | 2024-07-20 16:31 | XMS_ITS | Encounter Summary ---
Demographics Address [address] [place] [address] Home Phone Mobile Phone Email Address Preferred Language ENG Marital Status Single Advent Affiliation Unknown Race White Ethnic Group Not or Lati no Author Organization [facility] Address [address] [place] [address] Care Team Providers Care Carton Marker Machine Name Role Phone Farhat Cabezas MD Primary Care Provider [phone] Farhat Cabezas MD Unavailable [phone] Source Comments In the event this information is protected by the Federal Confidentiality of Alcohol and Drug AbusePatient Records regulations: The Federal rules restrict any use of the information to criminally investigate or prosecute any alcohol or drug abuse patient.[facility] Encounter Details Date Type Department Care Team (Late st Contact Info) Description 05/24/2024 Get Medical Advice Neurology 5334 [place] [address] Thaddeus Diggs MD [address] [place] [address] MRI cervical slime Social History Tobacco Use Types Packs/Day Years [...] is lower risk 7 03/07/2024 Data from: https://www.neighborhoodatlas.medicine.[facility]/ . Last address used for calculation [address] 03/07/2024 Comments No Sex and [...] Contact Info) Description 08/30/2024 9:30 AM EDT [facility] Endocrinology [address] [place] [address] Greg Nina APRN.MOTOR BRAKEMAN [address] [place], [place] [phone] diabetes follow up with me in 3 months virtually 11/20/2024 1:00 PM EDT [facility] Endocrinology [address] [place] [address] Valdez Suarez MD [address] [place] [address] [place], [place] 85555[address] follow up in 6 months documented as of this encounter Visit Diagnoses Not on filedocumented in this encounter Care Teams Carton Marker Machine Relationship Specialty Start Date End Date Farhat Cabezas MD PCP - General Family Medicine 01/13/11 Farhat Cabezas MD Referring Family Medicine 01/08/22 documented as of this encounter
--- OUTSIDE RECORDS SUMMARY | 2024-07-20 16:31 | XMS_ITS | Patient Health Record ---
Demographics Address [address] [place] [address] Mobile Preferred Language en Marital Status unmarried Bahai Affiliation Unknown Race White Ethnic Group Not or Lati no Author Organization [facility] Address [address] [place] [address] Care Team Providers Care Cinder Block Maker Name Role Phone Jason Lemon Primary Care Provider Reason For Referral No Information Plan Of Treatment No Information
--- OUTSIDE RECORDS SUMMARY | 2024-07-20 16:31 | XMS_ITS | Encounter Summary ---
Demographics Address [address] [place] [address] Home Phone Mobile Phone Email Address faisal Preferred Language ENG Marital Status Single Hinduism Affiliation Unknown Race White Ethnic Group Not or Lati no Author Organization [facility] Address [address] [place] [address] Care Team Providers Care Engineering Mgr Name Role Phone Farhat Cabezas MD Primary Care Provider [phone] Farhat Cabezas MD Unavailable [phone] Source Comments In the event this information is protected by the Federal Confidentiality of Alcohol and Drug AbusePatient Records regulations: The Federal rules restrict any use of the information to criminally investigate or prosecute any alcohol or drug abuse patient.[facility] Encounter Details Date Type Department Care Team (Late st Contact Info) Description 08/25/2023 Patient Msg CB/Gynecology [address] [place], [place] [id number] [place] [address] [place] [address] Appointment Request Social History Tobacco [...] risk 2 12/21/2022 Data from: https://www.neighborhoodatlas.medicine.[facility]/. Last address used for calculation [address] [...] AM EDT [facility] Endocrinology [address] [place] [address] Greg Nina APRN.SCRAP BALLER [address] [place], [place] [phone] diabetes follow up with me in 3 months virtually 11/20/2024 1:00 PM EDT [facility] Endocrinology [address] [place] [address] Valdez Suarez MD [address] [place] [address] [place] [address] follow up in 6 months documented as of this encounter Visit Diagnoses Not on filedocumented in this encounter Care Teams Engineering Mgr Relationship Specialty Start Date End Date Farhat Cabezas MD PCP - General Family Medicine 01/13/11 Farhat Cabezas MD Referring Family Medicine 01/08/22 documented as of this encounter
--- OUTSIDE RECORDS SUMMARY | 2024-07-20 16:31 | XMS_ITS | Encounter Summary ---
Demographics Address [address] [place] [address] Home Phone Mobile Phone Email Address Preferred Language ENG Marital Status Single Jewish Affiliation Unknown Race White Ethnic Group Not or Lati no Author Organization [facility] Address [facility] [place] [address] Care Team Providers Care Underwriting Support Specialist Name Role Phone Farhat Cabezas MD Primary Care Provider [phone] Farhat Cabezas MD Unavailable [phone] Source Comments In the event this information is protected by the Federal Confidentiality of Alcohol and Drug AbusePatient Records regulations: The Federal rules restrict any use of the information to criminally investigate or prosecute any alcohol or drug abuse patient.[facility] Encounter Details Date Type Department Care Team (Late st Contact Info) Description 10/25/2023 Get Medical Advice Gastroenterology [address] [place] [phone] Adilene Morgan APRN.SENIOR DRUPAL DEVELOPER [address] [place], [place] [phone] Question Social History Tobacco Use Types Packs/Day [...] is lower risk 2 12/21/2022 Data from: https://www.neighborhoodatlas.[facility]/. Last address used for calculation [address] [...] Contact Info) Description 08/30/2024 9:30 AM EDT [facility] Endocrinology [address] [place] [address] Greg Nina APRN.SENIOR DRUPAL DEVELOPER [address] [place] [address] diabetes follow up with me in 3 months virtually 11/20/2024 1:00 PM EDT [facility] Endocrinology [address] [place] [address] Valdez Saurez MD [address] [place] [address] [place] [address] follow up in 6 months documented as of this encounter Visit Diagnoses Not on filedocumented in this encounter Care Teams Underwriting Support Specialist Relationship Specialty Start Date End Date Farhat Cabezas MD PCP - General Family Medicine 01/13/11 Farhat Cabezas MD Referring Family Medicine 01/08/22 documented as of this encounter
--- OUTSIDE RECORDS SUMMARY | 2024-07-20 16:31 | XMS_ITS | Encounter Summary ---
Demographics Address [address] [facility] [place] [address] Home Phone Mobile Phone Email Address Preferred Language ENG Marital Status Single Denominational Affiliation Unknown Race White Ethnic Group Not or Lati no Author Organization [facility] Address [address] [place] [address] Care Team Providers Care Underwriting Manager Name Role Phone Farhat Cabezas MD Primary Care Provider [phone] Farhat Cabezas MD Unavailable [phone] Source Comments In the event this information is protected by the Federal Confidentiality of Alcohol and Drug AbusePatient Records regulations: The Federal rules restrict any use of the information to criminally investigate or prosecute any alcohol or drug abuse patient.[facility] Encounter Details Date Type Department Care Team (Late st Contact Info) Description 11/23/2023 Patient Msg Radiology 5700 [place] [address] Provider, Cc CT Scan 12/14/2023 Social History Tobacco Use Types Packs/Day Years [...] is lower risk 2 12/21/2022 Data from: https://www.neighborhoodatlas.[facility]/. Last address used for calculation [address] [...] [facility] Endocrinology [address] [place] [address] Greg Nina APRN.HAIRSPRING INSPECTOR [address] [place] [address] diabetes follow up with me in 3 months virtually 11/20/2024 1:00 PM EDT [facility] Endocrinology [address] [place] [address] Valdez Suarez MD [address] [place] [address] [place], [place] 3483335 follow up in 6 months documented as of this encounter Visit Diagnoses Not on filedocumented in this encounter Care Teams Underwriting Manager Relationship Specialty Start Date End Date Farhat Cabezas MD PCP - General Family Medicine 01/13/11 Farhat Cabezas MD Referring Family Medicine 01/08/22 documented as of this encounter
--- OUTSIDE RECORDS SUMMARY | 2024-07-20 16:31 | XMS_ITS | Encounter Summary ---
Demographics Address [address] [place] [address] Home Phone Mobile Phone Email Address Preferred Language ENG Marital Status Single Sikhism Affiliation Unknown Race White Ethnic Group Not or Lati no Author Organization [facility] Address [address] [place] [address] Care Team Providers Care Criminal Justice Social Worker Name Role Phone Farhat Cabezas MD Primary Care Provider [phone] Farhat Cbaezas MD Unavailable [phone] Source Comments In the event this information is protected by the Federal Confidentiality of Alcohol and Drug AbusePatient Records regulations: The Federal rules restrict any use of the information to criminally investigate or prosecute any alcohol or drug abuse patient.[facility] Encounter Details Date Type Department Care Team (Late st Contact Info) Description 05/25/2021 Patient g BMI [facility] REJ [address] [place], [place] [phone] [place] [address] [place] [address] Request an Appointment Social History Tobacco [...] N ot on file 01/16/2020 Data from: https://www.neighborhoodatlas.medicine.[facility].edu/. Last address used for calculation Not [...] 12:43 PM oMna Dubose (Rn) (Hist), RN documented as of [...] Contact Info) Description 08/30/2024 9:30 AM EDT [facility] Endocrinology [address] [place] [address] Greg Nina APRN.NETWORK CONTROL OPERATOR [address] [place], [place] 2667439 diabetes follow up with me in 3 months virtually 11/20/2024 1:00 PM EDT [facility] Endocrinology [address] [place] [address] Valdez Suarez MD [address] [place] [address] [place], [place] 5084835 follow up in 6 months documented as of this encounter Visit Diagnoses Not on filedocumented in this encounter Care Teams Criminal Justice Social Worker Relationship Specialty Start Date End Date Farhat Cabezas MD PCP - General Family Medicine 01/13/11 Farhat Cabezas MD Referring Family Medicine 01/08/22 documented as of this encounter
--- OUTSIDE RECORDS SUMMARY | 2024-07-20 16:31 | XMS_ITS | Encounter Summary ---
Demographics Address [address] [facility] [place] [address] Home Phone Mobile Phone Email Address Preferred Language ENG Marital Status Single Hoahaoism Affiliation Unknown Race White Ethnic Group Not or Lati no Author Organization [facility] Address [address] [place] [address] Care Team Providers Care Mortgage Processing Manager Name Role Phone Farhat Cabezas MD Primary Care Provider [phone] Farhat Cabezas MD Unavailable [phone] Source Comments In the event this information is protected by the Federal Confidentiality of Alcohol and Drug AbusePatient Records regulations: The Federal rules restrict any use of the information to criminally investigate or prosecute any alcohol or drug abuse patient.[facility] Encounter Details Date Type Department Care Team (Late st Contact Info) Description 10/06/2023 Patient Msg Ophthalmology [address] [place], [place] [phone] Theron Barajas OD [address] [place], [place] [phone] Appointment Request Social History Tobacco Use Types [...] risk 2 12/21/2022 Data from: https://www.neighborhoodatlas.[facility]/. Last address used for calculation [address] [...] Contact Info) Description 08/30/2024 9:30 AM EDT [facility] Endocrinology [address] [place] [address] Greg Nina APRN.SEAT PACK INSPECTOR [address] [place] [address] diabetes follow up with me in 3 months virtually 11/20/2024 1:00 PM EDT [facility] Endocrinology [address] [place] [address] Valdez Suarez MD [address] [place] [address] [place] [address] follow up in 6 months documented as of this encounter Visit Diagnoses Not on filedocumented in this encounter Care Teams Mortgage Processing Manager Relationship Specialty Start Date End Date Farhat Cabezas MD PCP - General Family Medicine 01/13/11 Farhat Cabezas MD Referring Family Medicine 01/08/22 documented as of this encounter
--- OUTSIDE RECORDS SUMMARY | 2024-07-20 16:31 | XMS_ITS | Encounter Summary ---
Demographics Address [address] [facility] [place] [address] Home Phone Mobile Phone Email Address Preferred Language ENG Marital Status Single Yazidi Affiliation Unknown Race White Ethnic Group Not or Lati no Author Organization [facility] Address [facility] [place] [address] Care Team Providers Care Barkeep Name Role Phone Farhat Cabezas MD Primary Care Provider [phone] Farhat Cabezas MD Unavailable [phone] Source Comments In the event this information is protected by the Federal Confidentiality of Alcohol and Drug AbusePatient Records regulations: The Federal rules restrict any use of the information to criminally investigate or prosecute any alcohol or drug abuse patient.[facility] Encounter Details Date Type Department Care Team (Late st Contact Info) Description 09/18/2021 Patient Msg Sleep Psychology [address] [place] [address] [place] [address] REPLACED BY [facility] [address] [place] [address] follow up Social History Tobacco Use Types Packs/Day [...] N ot on file 07/19/2021 Data from: https://www.neighborhoodatlas.medicine.[facility].edu/. Last address used for calculation [address] 07/19/2021 Comments No Sex and Gender [...] Contact Info) Description 08/30/2024 9:30 AM EDT [facility] Endocrinology [address] [place] [address] Greg Nina APRN.TANK CARPENTER [address] [place], [place] [phone] diabetes follow up with me in 3 months virtually 11/20/2024 1:00 PM EDT [facility] Endocrinology [address] [place] [address] Valdez Suarez MD [address] [place] [address] [address] [place], [place] 8651635 follow up in 6 months documented as of this encounter Visit Diagnoses Not on filedocumented in this encounter Care Teams Barkeep Relationship Specialty Start Date End Date Farhat Cabezas MD PCP - General Family Medicine 01/13/11 Farhat Cabezas MD Referring Family Medicine 01/08/22 documented as of this encounter
--- OUTSIDE RECORDS SUMMARY | 2024-07-20 16:31 | XMS_ITS | Encounter Summary ---
Demographics Address [address] [place] [address] Home Phone Mobile Phone Email Address Preferred Language ENG Marital Status Single Anabaptist Affiliation Unknown Race White Ethnic Group Not or Lati no Author Organization [facility] Address [facility] [place] [address] Care Team Providers Care Underwriter Name Role Phone Farhat Cabezas MD Primary Care Provider [phone] Farhat Cabezas MD Unavailable [phone] Source Comments In the event this information is protected by the Federal Confidentiality of Alcohol and Drug AbusePatient Records regulations: The Federal rules restrict any use of the information to criminally investigate or prosecute any alcohol or drug abuse patient.[facility] Encounter Details Date Type Department Care Team (Late st Contact Info) Description 09/27/2023 Get Medical Advice Neurology [address] [place] [address] [place] [address] [place] [address] Mri Social History Tobacco Use Types Packs/Day Years [...] is lower risk 2 12/21/2022 Data from: https://www.neighborhoodatlas.[place]/. Last address used for calculation [address] [...] Assessment Author No 12/14/2016 12:43 PM EST Moan Cook (Rn) (Hist), RN * Are you [...] Contact Info) Description 08/30/2024 9:30 AM EDT [facility] Endocrinology [address] [place] [address] Greg Nina APRN.NUCLEAR MEDICAL TECHNOLOGIST [address] [place], [place] [phone] diabetes follow up with me in 3 months virtually 11/20/2024 1:00 PM EDT [facility] Endocrinology [address] [place] [address] Valdez Suarez MD [address] [place] [address] [place], [place] [phone] follow up in 6 months documented as of this encounter Visit Diagnoses Not on filedocumented in this encounter Care Teams Underwriter Relationship Specialty Start Date End Date Farhat Cabezas MD PCP - General Family Medicine 01/13/11 Farhat Cabezas MD Referring Family Medicine 01/08/22 documented as of this encounter
--- OUTSIDE RECORDS SUMMARY | 2024-07-20 16:31 | XMS_ITS | Encounter Summary ---
Demographics Address [address] [facility] [place] [address] Home Phone Mobile Phone Email Address Preferred Language ENG Marital Status Single Buddhism Affiliation Unknown Race White Ethnic Group Not or Lati no Author Organization [facility] Address [address] [place] [address] Care Team Providers Care Press Room Supervisor Name Role Phone Farhat Cabezas MD Primary Care Provider [phone] Farhat Cabezas MD Unavailable [phone] Source Comments In the event this information is protected by the Federal Confidentiality of Alcohol and Drug AbusePatient Records regulations: The Federal rules restrict any use of the information to criminally investigate or prosecute any alcohol or drug abuse patient.[facility] Encounter Details Date Type Department Care Team (Late st Contact Info) Description 05/02/2023 Patient Msg Internal Medicine [address] [id number] Mathew Ferraro MD Regarding your upcoming endoscopy Social History Tobacco Use Types Packs/Day Years [...] lower risk 2 12/21/2022 Data from: https://www.neighborhoodatlas.[facility]/. Last address used for calculation [...] Info) Description 08/30/2024 9:30 AM EDT [facility] Endocrinology [address] [place] [phone] Greg Nina APRN.ASSOCIATE WEB DEVELOPER [address] [place] [address] diabetes follow up with me in 3 months virtually 11/20/2024 1:00 PM EDT [facility] [address] [place] [address] Valdez Suarez MD [address] [place] [address] [address] [place], [place] [phone] follow up in 6 months documented as of this encounter Visit Diagnoses Not on filedocumented in this encounter Care Teams Press Room Supervisor Relationship Specialty Start Date End Date Farhat Cabezas MD PCP - General Family Medicine 01/13/11 Farhat Cabezas MD Referring Family Medicine 01/08/22 documented as of this encounter
--- OUTSIDE RECORDS SUMMARY | 2024-07-20 16:32 | XMS_ITS | Encounter Summary ---
Demographics Address [address] [facility] [place] [address] Home Phone Mobile Phone Email Address Preferred Language ENG Marital Status Single Episcopalian Affiliation Unknown Race White Ethnic Group Not or Lati no Author Organization [facility] Address [address] [place] [address] Care Team Providers Care Filter Tender Jelly Name Role Phone Farhat Cabezas MD Primary Care Provider [phone] Farhat Cabezas MD Unavailable [phone] Source Comments In the event this information is protected by the Federal Confidentiality of Alcohol and Drug AbusePatient Records regulations: The Federal rules restrict any use of the information to criminally investigate or prosecute any alcohol or drug abuse patient.[facility] Encounter Details Date Type Department Care Team (Late st Contact Info) Description 08/04/2021 Patient Msg Neurology [address] [place] [address] Sara Nguyen, MARITZA.CAR DUMPER OPERATOR [address] [facility] [address] [place] [address] Sonata Refill Social History Tobacco Use Types Packs/Day Years [...] N ot on file 07/19/2021 Data from: https://www.neighborhoodatlas.medicine.[facility]/. Last address used for calculation [address] [...] AM EDT [facility] Endocrinology [address] [place] [phone] Greg Nina APRN.CAR DUMPER OPERATOR [address] [place], [place] 8120139 diabetes follow up with me in 3 months virtually 11/20/2024 1:00 PM EDT [facility] Endocrinology [address] [place] [address] Valdez Suarez MD [address] [place] [address] [address] [place], [place] [phone] follow up in 6 months documented as of this encounter Visit Diagnoses Not on filedocumented in this encounter Care Teams Filter Tender Jelly Relationship Specialty Start Date End Date Farhat Cabezas MD PCP - General Family Medicine 01/13/11 Farhat Cabezas MD Referring Family Medicine 01/08/22 documented as of this encounter
--- OUTSIDE RECORDS SUMMARY | 2024-07-20 16:32 | XMS_ITS | Encounter Summary ---
Demographics Address [address] [facility] [place] [address] Home Phone Mobile Phone Email Address Preferred Language ENG Marital Status Single Judaism Affiliation Unknown Race White Ethnic Group Not or Lati no Author Organization [facility] Address [address] [place] [address] Care Team Providers Care Pole Maker Name Role Phone Farhat Cabezas MD Primary Care Provider [phone] Farhat Cabezas MD Unavailable [phone] Source Comments In the event this information is protected by the Federal Confidentiality of Alcohol and Drug AbusePatient Records regulations: The Federal rules restrict any use of the information to criminally investigate or prosecute any alcohol or drug abuse patient.[facility] Encounter Details Date Type Department Care Team (Late st Contact Info) Description 11/10/2018 Get Medical Advice General Surgery BMI PSYL [address] [place], [place] [phone] Graciela Hoyt, PhD [address] [phone] RE: Non-Urgent Medical Question Social History Tobacco [...] Description 08/30/2024 9:30 AM EDT [facility] Endocrinology [address] [place] [address] Greg Nina APRN.COIL TIER [address] [place] [address] diabetes follow up with me in 3 months virtually 11/20/2024 1:00 PM EDT [facility] Endocrinology [address] [place] [address] Valdez Suarez MD [address] [place] [address] [address] [place], [place] 2464935 follow up in 6 months documented as of this encounter Visit Diagnoses Not on filedocumented in this encounter Care Teams Pole Maker Relationship Specialty Start Date End Date Farhat Cabezas MD PCP - General Family Medicine 01/13/11 Farhat Cabezas MD Referring Family Medicine 01/08/22 documented as of this encounter
--- OUTSIDE RECORDS SUMMARY | 2024-07-20 16:32 | XMS_ITS | Encounter Summary ---
Demographics Address [address] [facility] [place] [address] Home Phone Mobile Phone Email Address Preferred Language ENG Marital Status Single Druze Affiliation Unknown Race White Ethnic Group Not or Lati no Author Organization [facility] Address [address] [place] [address] Care Team Providers Care Case Management Manager Name Role Phone Farhat Cabezas MD Primary Care Provider [phone] Farhat Cabezas MD Unavailable Source Comments In the event this information is protected by the Federal Confidentiality of Alcohol and Drug AbusePatient Records regulations: The Federal rules restrict any use of the information to criminally investigate or prosecute any alcohol or drug abuse patient.[facility] Encounter Details Date Type Department Care Team (Late st Contact Info) Description 08/04/2018 Patient Msg General Surgery [address] [place] [address] Provider, [facility] Medication refill Social History Tobacco Use Types Packs/Day [...] AM EDT [facility] Endocrinology [address] [place] [phone] Greg Nina APRN.MANAGER TECHNICAL SUPPORT [address] [place] [address] diabetes follow up with me in 3 months virtually 11/20/2024 1:00 PM EDT [facility] Endocrinology [address] [place] [address] Valdez Suarez MD [address] [place] [address] [address] [place], [place] [address]104735 follow up in 6 months documented as of this encounter Visit Diagnoses Not on filedocumented in this encounter Care Teams Case Management Manager Relationship Specialty Start Date End Date Farhat Cabezas MD PCP - General Family Medicine 01/13/11 Farhat Cabezas MD Referring Family Medicine 01/08/22 documented as of this encounter
--- OUTSIDE RECORDS SUMMARY | 2024-07-20 16:32 | XMS_ITS | Encounter Summary ---
Demographics Address [address] [place] [address] Home Phone Mobile Phone Email Address Preferred Language ENG Marital Status Single Mosque Affiliation Unknown Race White Ethnic Group Not or Lati no Author Organization [facility] Address [address] [place] [address] Care Team Providers Care Oracle Analyst Name Role Phone Farhat Cabezas MD Primary Care Provider [phone] Farhat Cabezas MD Unavailable [phone] Source Comments In the event this information is protected by the Federal Confidentiality of Alcohol and Drug AbusePatient Records regulations: The Federal rules restrict any use of the information to criminally investigate or prosecute any alcohol or drug abuse patient.[facility] Encounter Details Date Type Department Care Team (Late st Contact Info) Description 09/15/2021 [place] [address] Provider, [facility] MRI Screening Questionnaire Completion Required [...] N ot on file 07/19/2021 Data from: https://www.neighborhoodatlas.medicine.[facility]/. Last address used for calculation [address] [facility] 07/19/2021 Comments No Sex and Gender Information Value Date Recorded Sex Assigned at Not on file Legal Sex Female 9:47 AM EST Gender Identity Not on file Sexual Orientation Not on file COVID-19 Exposure Response Date Recorded In the last 10 days, have yo u been in contact with someone who was confirmed or suspected to have Coronavirus/COVID-19? No / Unsure 09/17/2021 10:54 AM EDT documented as of this encounter [...] 08/30/2024 9:30 AM EDT [facility] Endocrinology [address] [place] [address] Greg Nina APRN.PAPER GRADER [address] [place] [address] diabetes follow up with me in 3 months virtually 11/20/2024 1:00 PM EDT [facility] Endocrinology [address] [place] [address] Valdez Suarez MD [address] [place] [address] [address] [place], [place] 9102835 follow up in 6 months documented as of this encounter Visit Diagnoses Not on filedocumented in this encounter Care Teams Oracle Analyst Relationship Specialty Start Date End Date Farhat Cabezas MD PCP - General Family Medicine 01/13/11 Farhat Cabezas MD Referring Family Medicine 01/08/22 documented as of this encounter
[2024-07-20 16:55] LABS: Basophils Percent Auto 0.4 % (0.2-2.0); Eosinophils Absolute Auto 0.3 10^3/uL (0.0-0.7); Eosinophils Percent Auto 4.4 % (0.9-7.0); Hematocrit 37.6 % (36.0-48.0); Hemoglobin 11.7 g/dL (12.0-16.0); Immature Granulocytes Abs Auto 0.08 10^3/uL (0.00-0.03); Lymphocytes Absolute Auto 2.8 10^3/uL (1.2-3.8); Lymphocytes Percent Auto 35.8 % (20.5-60.0); Mean Corpuscular HGB Conc 31.1 g/dL (29.9-35.2); Mean Corpuscular Hemoglobin 25.2 pg (26.7-34.0); Mean Platelet Volume 9.7 fL (9.5-13.5); Monocytes Absolute Auto 0.4 10^3/uL (0.3-0.8); Monocytes Percent Auto 5.5 % (1.7-12.0); Neutrophils Absolute Auto 4.1 10^3/uL (1.4-6.5); Neutrophils Percent Auto 52.9 % (43.0-75.0); Platelet Count 331 10^3/uL (150-450); Red Blood Count 4.64 10^6/uL (4.20-5.40); Red Cell Distribution Width 18.2 % (11.0-15.0); White Blood Count 7.7 10^3/uL (4.0-11.0)
--- NOTE | 2024-07-20 17:00 | XR_ITS ---
[address] [address] Patient Name: PRADIP MORFIN MRN: [id number] date: 1975 Sex: F Assigned Patient Location: LAB Current Patient Location: LAB Accession/Order Number: [id number] Exam Date: 07/20/2024 17:55 Report Date: 07/20/2024 17:55 At the request of: MARIBEL PINEDA MD Procedure: XR chest 2V Plain film chest 2 view HISTORY: Cough and shortness of breath COMPARISON: 09/16/2020 FINDINGS: SUPPORT DEVICES: None POSTSURGICAL CHANGES: None HEART: Within normal limits PULMONARY CARMELITA: Within normal limits MEDIASTINUM: Unremarkable LUNGS AND PLEURA: No acute lung process, pleural effusion or pneumothorax identified. BONY STRUCTURES: Intact ADDITIONAL FINDINGS None XR/XR chest 2V IMPRESSION: No acute process. Impression dictated by: Roberto Diego M.D. 07/20/2024 5:55 PM Dictation Location: [facility] Electronically authenticated by: [id number] Y Date: 07/20/2024 17:55
[2024-07-20 17:24] LABS: Alanine Aminotransferase 48 U/L (14-59); Albumin Globulin Ratio 0.8; Albumin Level 3.1 g/dL (3.4-5.0); Alkaline Phosphatase 431 U/L (46-116); Anion Gap 11.9; Aspartate Amino Transferase 29 U/L (15-37); BUN Creatinine Ratio 8.8; Bilirubin Total 0.3 mg/dL (0.2-1.0); C Reactive Protein 2.23 mg/dL (<=0.50); Calcium 8.9 mg/dL (8.5-10.1); Carbon Dioxide 28.6 mmol/L (21.0-32.0); Chloride 101 mmol/L (98-107); Estimated GFR (African America >60 (>=60 mL/min/1.73m^2); Estimated GFR (Non-African Ame 50 (>=60 mL/min/1.73m^2); Free T3 2.09 pg/mL (2.18-3.98); Globulin 4.1 g/dL; Glucose 130 mg/dL (74-106); Potassium 3.5 mmol/L (3.5-5.1); Sodium 138 mmol/L (136-145); Thyroid Stimulating Hormone 4.618 uIU/mL (0.358-3.740); Total Protein 7.2 g/dL (6.4-8.2); Uric Acid 5.8 mg/dL (2.6-6.0)
[2024-07-22 04:50] LABS: Vitamin B12 351 pg/mL (232-1245)
[2024-07-22 06:09] LABS: Antistreptolysin O Ab 104.5 IU/mL (0.0-200.0); Rheumatoid Factor (RF) <10.0 IU/mL (<14.0)
[2024-07-22 08:08] LABS: Vitamin D, 25-Hydroxy 26.6 ng/mL (30.0-100.0)
[2024-07-25 16:09] LABS: Antinuclear Antibodies, IFA Negative (.)
== END 2024-07-20 16:24 | disposition home or self-care (01) ==
PROVIDERS: PCP Family Medicine; Visit Provider Family Medicine
DX: D64.9 Anemia, unspecified (principal); E55.9 Vitamin D deficiency, unspecified; E06.3 Autoimmune thyroiditis; J20.9 Acute bronchitis, unspecified
CPT/HCPCS: 36415; 71046; 80053; 82306; 82607; 82728; 82746; 83540; 84436; 84443; 84481; 84550; 85025; 86038; 86060; 86140; 86431

== ENCOUNTER 2024-07-25 14:21 | Outpatient (RCR) | payer OTHER, SELFPAY ==
[2024-07-25 14:25] VITALS: BP 124/76; PULSE 94; TEMP 36.4; O2SAT 95
[2024-07-25] MEDS: MULTIVIT INFUSN,ADULT 4,VIT K 10 ML in 0.9 % SODIUM CHLORIDE 1,000 ML 1010 ML IV (14:27)
== END 2024-07-26 09:17 | disposition home or self-care (01) ==
LOC: INF 14:21
PROVIDERS: PCP Family Medicine; Visit Provider Family Medicine
DX: E86.0 Dehydration (principal)
CPT/HCPCS: 96365; 97110; 97163

== ENCOUNTER 2024-07-25 15:50 | Outpatient (RCR) | payer OTHER, SELFPAY | END 2024-08-04 15:06 | disposition home or self-care (01) | LOC: PT 15:50 | PROVIDERS: PCP Family Medicine; Visit Provider Family Medicine | DX: R53.1 Weakness (principal) | CPT/HCPCS: 97110; 97163; 97530 ==

== ENCOUNTER 2024-08-17 10:38 | Outpatient (RCR) | payer MEDICARE, MEDICAID, SELFPAY ==
--- OUTSIDE RECORDS SUMMARY | 2024-06-27 09:30 | XMS_ITS ---
Author Organization [facility] Address [address] [place] [address] Care Team Providers Care Band Sawmill Operator Name Role Phone Jason Lemon Primary Care Provider REASON FOR VISIT NEW PT EXAM Encounters Encounter Location Date Provider Diagnosis [place] [address] [place] [address] 06/27/2024 Jason Lemon Plan Of Treatment No Information Progress Notes * PRADIP MORFINDOB:1975 (49 yo F)Acc No.[id number]:06/27/2024 Patient: ZENAIDA JOHNSONWNA Provider: Jaquelin Lemon DDS :1975 A ge:48 Y S ex:Female Date:06/27/2024 Address:[address] [id number] Subjective: * Chief Complaints: * 1 . NEW PT EXAM. * Medical History: Objective: * Vitals: Assessment: Plan: * Treatment: * Images: * Electronic signature of Ashkan Lemon DDS on 09/13/2024 at 10:44 AM EDT Sign off status: Pending * Provider: Jaquelin Lemon DDS Date: 06/27/2024 Generated for Any soares/Karen/Banitting on: 09/13/2024 10:44 AM EDT
--- OUTSIDE RECORDS SUMMARY | 2024-06-27 09:30 | XMS_ITS ---
Author Organization [facility] Address [address] [place] [address] Care Team Providers Care Expedition Supervisor Name Role Phone Jason Lemon Primary Care Provider [phone] REASON FOR VISIT NEW PT EXAM Encounters Encounter Location Date Provider Diagnosis [address] [place] [address] [place] [address] 06/27/2024 Jason Lemon Plan Of Treatment No Information Progress Notes * PRADIP MORFINDOB:1975 (49 yo F)Acc No.[id number]:06/27/2024 Patient: ZENAIDA JOHNSONWNA Provider: Jaquelin Leomn DDS :1975 A ge:48 Y S ex:Female Date:06/27/2024 Address:[address] [place], [id number] Subjective: * Chief Complaints: * 1 . NEW PT EXAM. * Medical History: Objective: * Vitals: Assessment: Plan: * Treatment: * Images: * Electronic signature of Ashkan Lemon DDS on 08/27/2024 at 07:47 AM EDT Sign off status: Pending * Provider: Jaquelin Lemon DDS Date: 06/27/2024 Generated for Any soares/Karen/Banitting on: 08/27/2024 07:47 AM EDT
[2024-08-17 12:20] VITALS: BP 133/86; PULSE 83; TEMP 36.2; O2SAT 97
[2024-08-17] MEDS: FERRIC CARBOXYMALTOSE 750 MG in 0.9 % SODIUM CHLORIDE 250 ML 795 MG IV (12:44)
--- OUTSIDE RECORDS SUMMARY | 2024-08-18 20:22 | XMS_ITS | Continuity of Care Document ---
Author Organization [facility] Address [address] [place] [address] Phone Care Team Providers Care Inspector Wreath Name Role Phone Farhat Cabezas MD Primary Care Provider Roberto Delgado DO Attending Provider Care Teams Patient Care Team Team Status: Active Member Role Status Dates Farhat Cabezas MD Primary Care Provider Active Patient Care Team Team Status: Inactive Member Role Status Yanira Cabezas MD Primary Care Provider Active Start: August 17, 2024 End: August 17, 2024 Roberto Delgado DO Attending Provider Active S tart: August 17, 2024 End: August 17, 2024 Chief Complaint and Reason for Visit Chief Complaint Admit Date Unknown August 17, 2024 1:50 pm Allergies, Adverse Reactions, Alerts Allergen Type Severity Reaction Last Updated Verified Status scopolamine Adverse Reaction Moderate Agitated May 06, 2024 6:00am Yes Active ibuprofen Adverse Reaction Unknown Gastrointestinal Upset May 06, 2024 6:00am Yes Active Social History Smoking Status Status Start Date End Date Date of Observa tion Never smoked tobacco (finding) May 06, 2024 6:10am Observation Status Observation Response Date of Response Legal Sex Female (finding) Sex Assigned At Female 1975 Problems Active Problems Medical Problem Onset Date Status Alcohol dependence Unknown Active Insomnia Unknown Active TALIA (obstructive sleep apnea) Unknown Ac tive Paresthesia Unknown Active Anxiety Unknown Active Anxiety Unknown Active Morbid exogenous obesity Unknown Active Major depressive disorder, recurrent, moderate U nknown Active Abnormal brain MRI Unknown Active Inactive/Resolved Problems Medical Problem Onset Date Status Suicidal ideation Unknown Resolved Acute anxiety Unknown Resolved Abnormal ECG Unknown Resolved Medications Medication Status Dose Units Route Directions Qty Days St art Date Stop Date End Date Instructions Adherence Hydroxyzine Pamoate 50 mg Capsule Discont inued 50 MG PO Twice daily [facility] 2022 1:00am May 24, 2023 11:19 pm take 1-2 cap Trazodone 100 mg Tablet Discont inued 50 MG PO Daily at bedtime as needed for Insomnia [facility] 2022 1:00am May 24, 2023 11:20 pm Buspirone 10 mg Tablet Discont inued 10 MG PO Twice daily [facility] 2022 1:00am May 24, 2023 11:18 pm Promethazin e 25 mg tablet Active 25 MG PO Three times daily as needed for nausea and vomiting [facility] 2022 1:00am Unknown Zaleplon 10 mg Capsule Discont inued 10 MG PO Daily at bedtime as needed for Insomnia [facility] 2022 1:00am May 24, 2023 11:32 pm must avoid high-fat meal/food immediately before taking dose Escitalopra m Oxalate 20 mg Tablet Discont inued 20 MG PO Daily [facility] 2022 1:00am May 24, 2023 11:18 pm Aripiprazol e 2 mg Tablet Discont inued 5 MG PO Daily at bedtime [facility] 2022 1:00am May 25, 2023 5:16a m Lorazepam (Ativan) 1 mg tablet Discont inued 1 MG PO Twice daily 20 10 [facility] 2022 1:00am May 24, 2023 11:23 pm Levothyroxi ne 75 mcg tablet Active 75 MCG PO Daily May 24, 2023 12:00a m Unknown Pantoprazol e 40 mg tablet,shimon yed release (DR/EC) Active 40 MG PO Daily May 24, 2023 12:00a m Unknown Propranolol 10 mg tablet Active 10 MG PO Four times daily May 24, 2023 12:00a m Unknown Zolpidem 10 mg tablet Discont inued 10 MG PO Bedtime May 24, 2023 12:00a m July 23, 2023 3:32p m Glucagon (Baqsimi) 3 mg/actuatio n spray,non-a erosol Discont inued 3 MG INTRAN [place] EVERY 15 MINUTES as needed for low blood glucose May 24, 2023 12:00a m May 25, 2023 5:11a m Lorazepam (Ativan) 1 mg tablet Discont inued 1 MG PO Three times daily as needed for anxiety May 24, 2023 12:00a m July 23, 2023 3:32p m Mirtazapine 7.5 mg tablet Discont inued 7.5 MG PO Bedtime May 24, 2023 12:00a m May 27, 2023 9:48a m Diphenhydra mine Hcl (Benadryl Allergy) 50 mg tablet Discont inued 50 MG PO Daily at bedtime May 24, 2023 12:00a m May 25, 2023 5:16a m Dulaglutide (Trulicity) 3 mg/0.5 mL pen injector Discont inued 3 MG SUBCUT .weekly May 24, 2023 12:00a m July 23, 2023 3:30p m Ropinirole 1 mg tablet Discont inued 1 MG PO Bedtime as needed for restless leg(s) May 24, 2023 12:00a m July 23, 2023 3:32p m Albuterol Sulfate 90 mcg/actuati on HFA aerosol inhaler Active 2 PUFF INHALA TION Q4H as needed for shortness of breath or wheezing May 24, 2023 12:00a m Unknown Aripiprazol e 5 mg tablet Active 5 MG PO Daily May 25, 2023 12:00a m Unknown Sumatriptan Succinate 100 mg tablet Discont inued 100 MG PO Daily as needed for migraine headache May 25, 2023 12:00a m July 27, 2023 5:38p m Mirtazapine 15 mg Tablet Active 15 MG PO Bedtime May 26, 2023 12:00a m Unknown Olanzapine 5 mg Tablet Discont inued 5 MG PO Q6H as needed for Agitation May 26, 2023 12:00a m July 23, 2023 3:32p m Thiamine Hcl (Vitamin B1) 100 mg Tablet Discont inued 100 MG PO Twice daily 30 15 May 254 12:00a m July 23, 2023 3:32p m Folic Acid 1 mg Tablet Discont inued 1 MG PO Daily 30 30 May 26, 2023 12:00a m July 23, 2023 3:32p m Gabapentin 100 mg Capsule Discont inued 100 MG PO Three times daily 45 15 May 26, 2023 12:00a m July 23, 2023 3:33p m Hydroxyzine Pamoate 50 mg Capsule Discont inued 50 MG PO Q6H as needed for Anxiety 30 May 27, 2023 12:00a m July 23, 2023 3:32p m Diazepam 2 mg tablet Active 2 MG PO Three times daily July 23, 2023 12:00a m Unknown Zolpidem 12.5 mg tablet,ext release multiphase Active 12.5 MG PO Bedtime July 23, 2023 12:00a m Unknown Gabapentin 100 mg Capsule Active 300 MG PO Three times daily July 23, 2023 12:00a m Unknown Sucralfate (Carafate) 1 gram tablet Active 1 GM PO Twice daily as needed for abdominal discomfort 10 5 May 06, 2024 7:52am Unknown Procedures Procedure Date Performed Status Urine Culture August 17, 2024 active Advance Directives Advance Directive Response Recorded Date/ Time Advance Directives No January 09, 2023 6:13am Insurance Providers Guarantor Esme Reyes Address [facility] [address] [facility] [place] [address] Contact Info. Home Phone: Payer Policy Id Subscriber's Name Subscriber Id Effectiv e Date Expiration Date [employer] [id number] Encounters Encounter Location(s) Arrival/Admit Date Discharge/Depart Date Provider(s) Departed Referred -[facility] August 17, 2024 1:50pm August 17, 2024 1:51pm Kari Toussaint DO Plan of Treatment Future Tests Future scheduled test information is unavailable Pending Tests Test Name Ordered Date Scheduled Date Urine Culture August 17, 2024 1:50pm Future Visits Future appointment information is unavailable Referrals to Other Providers Referral information is unavailable Future Procedures Procedure Name Ordered Date Scheduled Date Urine Culture August 18, 2024 1:46pm August 1:50pm Future Medications Future medication information is unavailable Patient Instructions Patient instructions are unavailable
--- OUTSIDE RECORDS SUMMARY | 2024-08-21 10:15 | XMS_ITS ---
Author Organization [facility] [place] Address [address] [place] [address] Care Team Providers Care Quality Eng Name Role Phone DAVEY PINEDA MD Primary Care Provider Davey Pineda Unavailable [phone] Allergies Allergen (clinical drug ingredient) Drug/Non Drug Allergy documented on EMR Reaction Allergy Type Onset Date Status metformin metFORMIN HCl stomach upset Drug Allergy Active ibuprofen Ibuprofen stomach upset Drug Allergy Act libertad Reason For Referral Reason PT and aquatic thera py - eval an dtreat Diagnosis 1 Weakness (R53.1) Referral Organization [facility] Referring Provider First Name Davey Referring Provider Last Name Raulito Referring Provider Speciality Family Med icine Referred Provider Shawn Chawla PT, Nor walk Referred Provider Specialty Physical The rapist Referral Priority Routine REASON FOR VISIT left swollen leg, fell about 2 weeks ago, bruised and swollen Medications Medication SIG (Take, Route, Frequency, Duration) Notes Start Date End Date Status Promethazine HCl 25 MG 1 tablet as neede d Orally q6h for 30 days PRN 02/22/2023 Active Protonix 40 MG 1 tablet Orally Once a day for 30 days 10/26/2023 Active Paxil 40 MG 1 tablet in the morn ing Orally Once a day for 30 days Active CeleBREX 100 MG 1 capsule with food Orally Once a day for 30 days 08/21/2024 Active Semaglutide 0.3 mg/0.25mL 0.3 mg/0.25 mL 0.6 mg Subcutaneous Once weekly for 30 days 05/23/2024 Active chlordiazePOXIDE HCl 10 MG 1 capsule Orally tid PRN for 7 days needs to last a week 08/21/2024 Active BIPAP -- as directed Active Doxepin HCl 50 MG 1 capsule at bedtime Orally Once a day for 30 days 05/22/2024 Active Haloperidol 2 MG 1 tablet Orally thre e times daily for 30 days Active Levothyroxine Sodium 100 MCG 1 tablet in the morning on an empty stomach Orally Once a day for 30 days Active valACYclovir HCl 500 MG 1 tablet Orally tid for 10 days 07/20/2024 Active Ondansetron 4 MG 1 tablet on the tong ue and allow to dissolve Orally qid PRN 06/28/2024 Active Ventolin HFA 108 (90 Base) MCG/ACT 1 puff as needed Inhalation every 4 hrs for 30 days PRN Active Social History Tobacco Use: Social History Observation Description Date Details (start date - stop date) Never Smoker NA - NA Tobacco Use/Smoking Question Answer Notes Patient is a nonsmoker AUDIT-C (Standard) Question Answer Notes Did you have a drink containing alcohol in the p ast year? No Points 0 Interpretation Negative Problems Problem Type SNOMED Code ICD Code Onset Dates Problem Status W/U Status Risk Notes Problem Leg pain (40125096) Leg pain (M79.606) Active confirmed Problem Weakness (67675890) Weakness (R53.1) Active confirmed Vital Signs Blood pressure systolic 118 mm Hg 08/22/19 25 Blood pressure diastolic 70 mm Hg 025 Height 62.5 in 08/21/2024 Weight 269 lbs 08/21/2024 BMI 48.41 kg/m2 08/21/2024 Encounters Encounter Location Date Provider Diagnosis [facility] [address] [place] [address] 08/21/2024 Davey Hoy Leg pain M79.606 and Weakness R53.1 Assessments Encounter Date Diagnosis (ICD Code) Assessment Notes Treatment Notes Treatment Clinical Notes Section Notes 08/21/2024 Leg pain (ICD-10 - M79.606) 08/21/2024 Weakness (ICD-10 - R53.1) Plan Of Treatment Medication Medication Name Sig Start Date Stop Date Notes CeleBREX 100 MG 1 capsule with food Orally Once a day for 30 days 08/21/2024 Semaglutide 0.3 mg/0.25mL 0. 3 mg/0.25 mL 0.6 mg Subcutaneous Once weekly for 30 days 05/23/2024 chlordiazePOXIDE HCl 10 MG 1 capsule Ora lly tid PRN for 7 days 08/21/2024 Ondansetron 4 MG 1 tablet on the tong ue and allow to dissolve Orally qid 06/28/2024 PRN Pending Test Test Name Order Date US GWEN DOP LEG LT 08/21/2024 XR TIB_FIB LT 2V 08/21/2024 Referrals Referral Date Details 08/21/2024 08/21/2024, PT and a quatic therapy - eval an dtreat, Anselmo Ribeirous PT Progress Notes * Esme REYES SDOB: [birth year] (49 yo F)Acc No.[id number]:08/21/2024 Progress Note Patient: Esme JOHNSON Provider: Kari Pineda ([facility])MD :1975 A ge:49 Y S ex:Female Date:08/21/2024 Address:[facility] [address], [place], [id number] Pcp:DAVEY PINEDA MD Check In:02:04 PM ESTCheck O ut:02:38 PM EST Subjective: * Chief Complaints: * L eft swollen legFell about 2 weeks ago, bruised and swollen * HPI: G eneral: fell n leg two week ago - not [id number] - just a slip and fall has had leg swelling - seen in ER _ - cxr clear didnt do u/s. * ROS: E ENT: hearing changes d [...] enies. S wollen joints d enies. * Active Problem List R00.2 Palpitations Modified On:06/19/2022 Status:confirmed V45.89 History of cardiac c atheterization Modified On:06/09/2022 Status:confirmed E66.9 Obesity Modified On:06/09/2022 Status:confirmed R60.9 Edema Modified On:06/09/2022 Status:confirmed V45.89 H/O cardiac catheter ization Modified On:06/09/2022 Status:confirmed D64.9 Anemia Modified On:05/18/2023 Status:confirmed G47.00 Insomnia Modified On:06/09/2022 Status:confirmed K44.9 Hiatal hernia Modified On:06/09/2022 Status:confirmed M25.559 Hip pain Modified On:06/09/2022 Status:confirmed R55 Syncope Modified On:06/09/2022 Status:confirmed E55.9 Vitamin D deficiency Modified On:06/09/2022 Status:confirmed M25.50 Arthralgia Modified On:06/09/2022 Status:confirmed M25.561 Knee pain, right Modified On:06/09/2022 Status:confirmed N94.6 Dysmenorrhea Modified On:06/09/2022 Status:confirmed R13.10 Dysphagia Modified On:06/09/2022 Status:confirmed M72.2 Plantar fasciitis Modified On:06/09/2022 Status:confirmed K22.2 Esophageal stricture Modified On:06/09/2022 Status:confirmed L30.1 Dyshidrotic eczema Modified On:06/09/2022 Status:confirmed K57.32 Diverticulitis of co andrew Modified On:06/09/2022 Status:confirmed N92.1 Menometrorrhagia Modified On:06/09/2022 Status:confirmed 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 Modified On:05/18/2023 Status:confirmed E06.3 Chronic lymphocytic thyroiditis Modified On:06/09/2022 Status:confirmed K21.9 Gastro-esophageal re flux disease Modified On:06/09/2022 Status:confirmed Z98.890 Other specified post procedural states Modified On:06/09/2022 Status:confirmed E86.0 Dehydration, moderat e Modified On:06/09/2022 Status:confirmed C73 Follicular thyroid c arcinoma Modified On:06/09/2022 Status:confirmed E11.9 Diabetes mellitus Modified On:05/18/2023 Status:confirmed N20.1 Calculus, ureteral Modified On:06/09/2022 Status:confirmed E11.9 Type 2 diabetes cain itus without complication Modified On:05/13/2022 Status:confirmed E16.2 Hypoglycemia, unspec ified Modified On:06/15/2022 Status:confirmed E05.00 Thyrotoxicosis with diffuse goiter without thyrotoxic crisis or storm Modified On:06/18/2022 Status:confirmed L03.90 Cellulitis Modified On:01/19/2023 Status:confirmed F41.9 Anxiety Modified On:03/09/2023 Status:confirmed E86.0 Dehydration Modified On:05/19/2023 Status:confirmed R45.851 Suicidal ideation Modified On:05/31/2023 Status:confirmed G47.30 Sleep apnea Modified On:06/17/2023 Status:confirmed R20.2 Paresthesia Modified On:06/24/2023 Status:confirmed R20.2 Arm paresthesia, lef t Modified On:06/28/2023 Status:confirmed R06.00 Dyspnea Modified On:06/28/2023 Status:confirmed I63.9 CVA (cerebral vascul ar accident) Modified On:07/13/2023 Status:confirmed F10.10 Alcohol abuse Modified On:07/14/2023 Status:confirmed E03.9 Acquired hypothyroid ism Modified On:07/14/2023 Status:confirmed F41.1 ESTRELLITA (generalized anx iety disorder) Modified On:07/14/2023 Status:confirmed S92.309A Fracture of metatars al bone Modified On:06/06/2024 Status:confirmed J20.9 Acute bronchitis Modified On:07/20/2024 Status:confirmed M79.606 Leg pain Modified On:08/21/2024 Status:confirmed R53.1 Weakness Modified On:08/21/2024 Status:confirmed * Medical History: * Surgical History: l ap gastric bypass 2016 * Hospitalization/Major Diagno stic Procedure: C OVID long haulers yncope 2020hernia 2016 * Family History: F ather: , multiple sclerosis, diagnosed with Unspecified essential hypertension, Unspecified heart disease. M other: alive 73 yrs, thyroid disease, osteoarthritis, skin cancer. S ister(s): alive, multiple sclerosis, GI issues. S on(s): alive, bipolar, depression. 2 sister(s) - healthy. 3 son(s) - healthy. . * Social History: T obacco Use: T obacco Use/Smoking P atient is a n onsmoker D rug/Alcohol: A RANDA-C (Standard) D id you have a drink containing alcohol in the past year? N o P oints 0 I nterpretation N egative * Medications: T akingBIPAP -- as directed chlordiazePOXIDE HCl 10 MG Capsule 1 capsule Orally tid PRN needs to last a weekDoxepin HCl 50 MG Capsule 1 capsule at bedtime Orally Once a day Haloperidol 2 MG Tablet 1 tablet Orally three times daily Levothyroxine Sodium 100 MCG Capsule 1 tablet in the morning on an empty stomach Orally Once a day Ondansetron 4 MG Tablet Disintegrating 1 tablet on the tongue and allow to dissolve Orally qid , Notes to Pharmacist: PRNPaxil(PARoxetine HCl) 40 MG Tablet 1 tablet in the morning Orally Once a day Promethazine HCl 25 MG Tablet 1 tablet as needed Orally q6h , Notes to Pharmacist: PRNProtonix(Pantoprazole Sodium) 40 MG Tablet Delayed Release 1 tablet Orally Once a day Semaglutide 0.3 mg/0.25mL 0.3 mg/0.25 mL Solution Auto- injector 0.25 mL Subcutaneous Once weekly valACYclovir HCl 500 MG Tablet 1 tablet Orally tid Ventolin HFA(Albuterol Sulfate HFA) 108 (90 Base) MCG/ACT Aerosol Solution 1 puff as needed Inhalation every 4 hrs , Notes to Pharmacist: PRNMedication List reviewed and reconciled with the patientTaking BIPAP -- as directed Taking chlordiazePOXIDE HCl 10 MG Capsule 1 capsule Orally tid PRN needs to last a weekTaking Doxepin HCl 50 MG Capsule 1 capsule at bedtime Orally Once a day Taking Haloperidol 2 MG Tablet 1 tablet Orally three times daily Taking Levothyroxine Sodium 100 MCG Capsule 1 tablet in the morning on an empty stomach Orally Once a day Taking Ondansetron 4 MG Tablet Disintegrating 1 tablet on the tongue and allow to dissolve Orally qid , Notes to Pharmacist: PRNTaking Paxil(PARoxetine HCl) 40 MG Tablet 1 tablet in the morning Orally Once a day Taking Promethazine HCl 25 MG Tablet 1 tablet as needed Orally q6h , Notes to Pharmacist: PRNTaking Protonix(Pantoprazole Sodium) 40 MG Tablet Delayed Release 1 tablet Orally Once a day Taking Semaglutide 0.3 mg/0.25mL 0.3 mg/0.25 mL Solution Auto-injector 0.25 mL Subcutaneous Once weekly Taking valACYclovir HCl 500 MG Tablet 1 tablet Orally tid Taking Ventolin HFA(Albuterol Sulfate HFA) 108 (90 Base) MCG/ACT Aerosol Solution 1 puff as needed Inhalation every 4 hrs , Notes to Pharmacist: PRNMedication List reviewed and reconciled with the patient * Allergies: m etFORMIN HCl: stomach upset - Criticality HighIbuprofen: stomach upset - Criticality Highno[Allergies Verified] Objective: * Vitals: W t:269lbs, Ht: 62.5 in, BP:118/70mm Hg, BMI:48.41Index, Ht-cm: 158.75 cm, Wt-k.02 kg. * Examination: P hysical Exam: GENERAL: [...] mood and affect. Assessment: * Assessment: 1. L eg pain - M79.606 (Primary) 2 . W eakness - R53.1 Plan: * Treatment: 2. W eakness Refill Semaglutide 0.3 mg/0.25mL Solution Auto-injector, 0.3 mg/0.25 mL, 0.6 mg, Subcutaneous, Once weekly, 30 days, 1, Refills 0; S tart CeleBREX Capsule, 100 MG, 1 capsule with food, Orally, Once a day, 30 days, 30, Refills 11. I maging: US GWEN DOP LEG LT I maging: XR TIB_FIB LT 2V Referral To:Anselmo Chawla PT Physical Therapist Reason:PT and aquatic therapy - eval an dtreat * Procedure Codes: * Preventive Medicine: Screenings/Counseling: B [place] ACTION PLAN Above Normal BMI Follow-up D ietary management education, guidance, and counseling * * Sign off status: Completed Visit Status: C HK (Check Out) true * Provider: Kari Pineda ([facility])MD Date: 0 08/21/2024 Generated for Any soares/Karen/eTransmitting on: 0 08/27/2024 07:47 AM EDT History and Physical Notes * HPI (History of Present Illness) Category Sub-Category Detail Notes Category Not es General fell n leg two week ago - not [id number] - just a slip and fall has had leg swelling - seen in ER _ - cxr clear didnt do u/s Examination Category Sub-Category Detail Notes Category Not [...] rge, inflammation, or lesions MOUTH: mucous membranes haydne st, normal oropharynx and posterior pharynx without [...] Referral Date Referring Provider Referred Provider Not jesse 08/21/2024 Davey Pineda PT, Anselmo PT and aquatic therapy - eval an dtreat
--- OUTSIDE RECORDS SUMMARY | 2024-08-21 14:27 | XMS_ITS ---
Demographics Address [address] [place] [address] Mobile Email Address Preferred Language en Marital Status unmarried Orthodoxy Affiliation Unknown Race White Ethnic Group Not or Lati no Author Organization [facility] [place] Address [address] [place] [address] Care Team Providers Care Field Coil Winder Name Role Phone DAVEY CABEZAS MD Primary Care Provider [phone] Davey Cabezas Unavailable [phone] REASON FOR VISIT NO DVT Encounters Encounter Location Date Provider Diagnosis [facility] [address] [place] [address] 08/21/2024 Davey Cabezas Plan Of Treatment No Information Progress Notes * Esme REYES SDOB: [birth year] (49 yo F)Acc No.[id number]:08/21/2024 Patient: Bekah DYE Esme Radha :1975 A ge:49 Y S ex:Female Address:[address], [place], [address] * true * Date: Generated for Printi ng/Faxing/eTransmitting on: 0 08/27/2024 07:48 AM EDT
--- OUTSIDE RECORDS SUMMARY | 2024-08-22 17:11 | XMS_ITS ---
Demographics Address [address] [place] [address] Mobile Email Address Preferred Language en Marital Status unmarried Confucianist Affiliation Unknown Race White Ethnic Group Not or Lati no Author Organization [facility] Address [address] [place] [address] Care Team Providers Care Mill Order Scheduler Name Role Phone DAVEY CABEZAS MD Primary Care Provider [phone] Davey Cabezas Unavailable [phone] REASON FOR VISIT results Encounters Encounter Location Date Provider Diagnosis [facility] Medicine [address] [place] [address] 08/22/2024 Davey Cabezas Plan Of Treatment No Information Progress Notes * Esme REYES SDOB: [birth year] (49 yo F)Acc No.[id number]:08/22/2024 Patient: Mayur JOHNSONwna Radha :1975 A ge:49 Y S ex:Female Address:[address] [place], [address] * true * Date: Generated for Printi ng/Fachidig/eTransmitting on: 0 08/27/2024 07:48 AM EDT
--- OUTSIDE RECORDS SUMMARY | 2024-08-25 05:08 | XMS_ITS | Continuity of Care Document ---
Author Organization [facility] Address [address] [place] [address] Phone Care Team Providers Care On Awake Counselor Name Role Phone Bella Tadeo Unavailable Unavaila [...] MINUTES PSYTX PT&/FAMILY 60 MINUTES Acute Detox Product Development Consultant Acute Detox Product Development Consultant Acute Detox Product Development Consultant ROUTINE VENIPUNCTURE DRUG TEST PRSMV DIR OPT OBS URINE TEST Acute Detox Product Development Consultant PSYTX PT&/FAMILY 60 MINUTES PSYTX PT&/FAMILY 60 MINUTES PSYTX PT&/FAMILY 60 MINUTES PSYTX PT&/FAMILY 60 MINUTES PSYTX PT&/FAMILY 60 MINUTES PSYTX PT&/FAMILY 60 MINUTES PSYTX PT&/FAMILY 60 MINUTES PSYTX PT&/FAMILY 60 MINUTES PSYTX PT&/FAMILY 60 MINUTES PSYTX PT&/FAMILY 60 MINUTES PSYTX PT&/FAMILY 60 MINUTES PSYTX PT&/FAMILY 60 MINUTES PSYTX PT&/FAMILY 60 MINUTES PSYTX PT&/FAMILY 60 MINUTES Intraoral-periapical 1st Film Zwboqdglo-mylvinfaws-vqqr Additional Nov Bitewig-single Film Nutrit Couns For Control Of [place] Dis Nov Limited Oral Eval PSYTX PT&/FAMILY [...] 60 MINUTES PSYCH DIAGNOSTIC EVALUATION Acute Detox Product Development Consultant Acute Detox Product Development Consultant Acute Detox Product Development Consultant Acute Detox Product Development Consultant Acute Detox Product Development Consultant DRUG TEST PRSMV DIR OPT OBS URINE TEST Acute Detox Product Development Consultant DRUG TEST PRSMV DIR OPT OBS URINE TEST Acute Detox Product Development Consultant Bitewig-single Film Intraoral-periapical 1st Film Hwcrybbhd-jhvgxjikpw-ubit Additional June Qjxakcyui-vojmbyzsor-aepp Additional June Oral Hygiene Instruction Limited Oral Eval Acute Detox Product Development Consultant Acute Detox Product Development Consultant Acute Detox Product Development Consultant Acute Detox Product Development Consultant DRUG TEST PRSMV DIR OPT OBS URINE TEST Acute Detox Product Development Consultant Advance Directives Directive Yes / No Effective Date File Name No Information Encounters Encounter Description Practice Location Reason(s) For Visit Diagnoses Date Provider Providers Copied on Encounter [facility], [address] [place] [address], [place], [place], [id number] , [place] tel:[phone] [facility] No Information 5 Antelmo Blanco. [address] [place], [address], [place]. tel: [phone] PSYTX PT&/FAMILY 60 MINUTES [facility], [address] [place] [address], [id number] , [place] tel: [phone] [facility] Sedative, hypnotic or anxiolytic dependence, uncomplicatedPost-t raumatic stress disorder, chronicMajor depressive disorder, recurrent severe without psychotic featuresAgoraphobia with panic disorder 5 Antelmo Blanco. [address] [place], [address], [place]. tel: [phone] PSYTX PT&/FAMILY 60 MINUTES [facility], [address] [place] [address], [id number] , [place] tel: [phone] [facility] Sedative, hypnotic or anxiolytic dependence, uncomplicatedPost-t raumatic stress disorder, chronicMajor depressive disorder, recurrent severe without psychotic featuresAgoraphobia with panic disorder 5 Antelmo Blanco. [address] [place], [address], [place]. tel: [phone] PSYTX PT&/FAMILY 60 MINUTES [facility], [address] [place] [address], [id number] , [place] tel: [phone] [facility] Sedative, hypnotic or anxiolytic dependence, uncomplicatedPost-t raumatic stress disorder, chronicMajor depressive disorder, recurrent severe without psychotic featuresAgoraphobia with panic disorder 5 Antelmo Blanco. [address] [place] [address], [address], [place]. tel: [phone] PSYTX PT&/FAMILY 60 MINUTES [facility], [address] [place] [address], [id number] , [place] tel: [phone] [facility] Sedative, hypnotic or anxiolytic dependence, uncomplicatedPost-t raumatic stress disorder, chronicMajor depressive disorder, recurrent severe without psychotic featuresAgoraphobia with panic disorder 5 Antelmo Blanco. [address] [place], [address], [place]. tel: [phone] PSYTX PT&/FAMILY 60 MINUTES [facility], [address] [place] [address], [id number] , [place] tel: [phone] [facility], hypnotic or anxiolytic dependence, uncomplicatedPost-t raumatic stress disorder, chronicMajor depressive disorder, recurrent severe without psychotic featuresAgoraphobia with panic disorder May- 5 Antelmo Blanco. [address] [place], [address], [place]. tel: [phone] PSYTX PT&/FAMILY 60 MINUTES [facility], [address] [place] [address], [id number] , [place] tel: [phone] [facility] Sed[facility], hypnotic or anxiolytic dependence, uncomplicatedPost-t raumatic stress disorder, chronicMajor depressive disorder, recurrent severe without psychotic featuresAgoraphobia with panic disorder 0 5 Antelmo Blanco. [address] [place], [address], [place]. tel: [phone] [facility], [address] [place] [address], [id number] , [place] tel: [phone] [facility] No Information 5 Klidas Brooke. [address] [place] [address], [id number] , [place]. tel: [phone] [facility], [address] [place] [address], [id number] , [place] tel: [phone] [facility] No Information 5 Tom Garza. [address] [place] [address], [address], [place]. tel: [phone] [facility], [address] [place] [address], [id number] , [place] tel: [phone] [facility] No Information 5 Klidas Brooke. [address] [place] [address], [id number] , [place]. tel: [phone] [facility], [address] [place] [address], [id number] , [place] tel: [phone] [facility] No Information 5 Lida Cox. [address] [place] [address], [id number] , [place]. tel: [phone] PSYTX PT&/FAMILY 60 MINUTES [facility], [address] [place] [address], [id number] , [place] tel: [phone] [facility] Sedative, hypnotic or anxiolytic dependence, uncomplicatedPost-t raumatic stress disorder, chronicMajor depressive disorder, recurrent severe without psychotic featuresAgoraphobia with panic disorder Antelmo Blanco. [address] [place] [address], [address], [place]. tel: [phone] PSYTX PT&/FAMILY 60 MINUTES [facility], [address] [place] [address], [id number] , [place] tel: [phone] [facility] Sedative, hypnotic or anxiolytic dependence, uncomplicatedPost-t raumatic stress disorder, chronicMajor depressive disorder, recurrent severe without psychotic featuresAgoraphobia with panic disorder 5 Antelmo Blanco. [address] [place] [address], [address], [place]. tel: [phone] PSYTX PT&/FAMILY 60 MINUTES [facility], [address] [place] [address], [id number] , [place] tel: [phone] [facility] Sedative, hypnotic or anxiolytic dependence, uncomplicatedPost-t raumatic stress disorder, chronicMajor depressive disorder, recurrent severe without psychotic featuresAgoraphobia with panic disorder Antelmo Blanco. [address] [place] [address], [address], . tel: [phone] PSYTX PT&/FAMILY 60 MINUTES [facility], [address] [place] [address], [id number] , [place] tel: [phone] [facility] Sedative, hypnotic or anxiolytic dependence, uncomplicatedPanic disorder [episodic paroxysmal anxiety]Post-trauma tic stress disorder, chronicMajor depressive disorder, recurrent severe without psychotic features 4 Antelmo Blanco. [address] [place], [address], . tel: [phone] PSYTX PT&/FAMILY 60 MINUTES [facility], [address] [place] [address], [id number] , tel: [phone] [facility] Sedative, hypnotic or anxiolytic dependence, uncomplicatedPanic disorder [episodic paroxysmal anxiety]Post-trauma tic stress disorder, chronicMajor depressive disorder, recurrent severe without psychotic features 4 Antelmo Blanco. [address] [place], [address], . tel: [phone] PSYTX PT&/FAMILY 60 MINUTES [facility], [address] [place] [address], [id number] , [place] tel: [phone] [facility] Sedative, hypnotic or anxiolytic dependence, uncomplicatedPanic disorder [episodic paroxysmal anxiety]Post-trauma tic stress disorder, chronicMajor depressive disorder, recurrent severe without psychotic features 4 Antelmo Blanco. [address] [place] [address], [address], . tel: [phone] PSYTX PT&/FAMILY 60 MINUTES [facility], [address] [place] [address], [id number] , [place] tel: [phone] [facility] Sedative, hypnotic or anxiolytic dependence, uncomplicatedPanic disorder [episodic paroxysmal anxiety]Post-trauma tic stress disorder, chronicMajor depressive disorder, recurrent severe without psychotic features 4 Antelmo Blanco. [address] [place], [address], . tel: [phone] PSYTX PT&/FAMILY 60 MINUTES [facility], [address] [place] [address], [id number] , tel: [phone] [facility] Sedative, hypnotic or anxiolytic dependence, uncomplicatedPanic disorder [episodic paroxysmal anxiety]Post-trauma tic stress disorder, chronicMajor depressive disorder, recurrent severe without psychotic features 4 Antelmo Blanco. [address] [place], [address], . tel: [phone] PSYTX PT&/FAMILY 60 MINUTES [facility], [address] [place] [address], [id number] , [place] tel: [phone] [facility] Sedative, hypnotic or anxiolytic dependence, uncomplicatedPanic disorder [episodic paroxysmal anxiety]Post-trauma tic stress disorder, chronicMajor depressive disorder, recurrent severe without psychotic features 4 Antelmo Blanco. [address] [place], [address], [place]. tel: [phone] PSYTX PT&/FAMILY 60 MINUTES [facility], [address] [place] [address], [id number] , [place] tel: [phone] [facility] Sedative, hypnotic or anxiolytic dependence, uncomplicatedPanic disorder [episodic paroxysmal anxiety]Post-trauma tic stress disorder, chronicMajor depressive disorder, recurrent severe without psychotic features 4 Antelmo Blanco. [address] [place], [address], [place]. tel: [phone] PSYTX PT&/FAMILY 60 MINUTES [facility], [address] [place] [address], [id number] , [place] tel: [phone] [facility] Sedative, hypnotic or anxiolytic dependence, uncomplicatedPanic disorder [episodic paroxysmal anxiety]Post-trauma tic stress disorder, chronicMajor depressive disorder, recurrent severe without psychotic features 4 Antelmo Blanco. [address] [place], [address], [place]. tel: [phone] PSYTX PT&/FAMILY 60 MINUTES [facility], [address] [place] [address], [id number] , [place] tel: [phone] [facility] Sedative, hypnotic or anxiolytic dependence, uncomplicatedPanic disorder [episodic paroxysmal anxiety]Post-trauma tic stress disorder, chronicMajor depressive disorder, recurrent severe without psychotic features 4 Antelmo Blanco. [address] [place], [address], [place]. tel: [phone] PSYTX PT&/FAMILY 60 MINUTES [facility], [address] [place], [place], [id number] , [place] tel: [phone] [facility] Sedative, hypnotic or anxiolytic dependence, uncomplicatedPanic disorder [episodic paroxysmal anxiety]Post-trauma tic stress disorder, chronicMajor depressive disorder, recurrent severe without psychotic features 4 Antelmo Blanco. [address] [place], [address], [place]. tel: [phone] PSYTX PT&/FAMILY 60 MINUTES [facility], [address] [place] [address], [id number] , [place] tel: [phone] [facility] Sedative, hypnotic or anxiolytic dependence, uncomplicatedPanic disorder [episodic paroxysmal anxiety]Post-trauma tic stress disorder, chronicMajor depressive disorder, recurrent severe without psychotic features 4 Antelmo Blanco. [address] [place], [address], [place]. tel: [phone] [facility], [address] [place] [address], [id number] , [place] tel: [phone] [facility] er (chief complaint) Encounter for screening for dental disorders 4 Geoff Dahl. [address], [place], [id number] , [place]. tel: [phone] PSYTX PT&/FAMILY 60 MINUTES [facility], [address] [place] [address], [id number] , [place] tel: [phone] [facility] Sedative, hypnotic or anxiolytic dependence, uncomplicatedPanic disorder [episodic paroxysmal anxiety]Post-trauma tic stress disorder, chronicMajor depressive disorder, recurrent severe without psychotic features 4 Antelmo Blanco. [address] [place], [address], [place]. tel: [phone] PSYTX PT&/FAMILY 60 MINUTES [facility], [address] [place], [place], [id number] , [place] tel: [phone] [facility] Panic disorder [episodic paroxysmal anxiety]Post-trauma tic stress disorder, chronicMajor depressive disorder, recurrent, moderate Oct-0 - 4 Antelmo Blanco. [address] [place], [address], [place]. tel: [phone] PSYTX PT&/FAMILY 60 MINUTES [facility], [address] [place], [place], [id number] , [place] tel: [phone] [facility] Panic disorder [episodic paroxysmal anxiety]Post-trauma tic stress disorder, chronicMajor depressive disorder, recurrent, moderate Oct-0 - 4 Antelmo Blanco. [address] [place], [address], [place]. tel: [phone] PSYTX PT&/FAMILY 60 MINUTES [facility], [address] [place], [place], [id number] , [place] tel: [phone] [facility] Panic disorder [episodic paroxysmal anxiety]Post-trauma tic stress disorder, chronicMajor depressive disorder, recurrent, moderate Sep-2 4 Antelmo Blanco. [address] [place], [address], [place]. tel: [phone] PSYTX PT&/FAMILY 60 MINUTES [facility], [address] [place] [address], [id number] , [place] tel: [phone] [facility] Panic disorder [episodic paroxysmal anxiety]Post-trauma tic stress disorder, chronic Sep-2 4 Antelmo Blanco. [address] [place], [address], [place]. tel: [phone] PSYTX PT&/FAMILY 60 MINUTES [facility], [address] [place] [address], [id number] , [place] tel: [phone] [facility] Panic disorder [episodic paroxysmal anxiety]Post-trauma tic stress disorder, chronic Sep-1 7-202 4 Antelom LALAGildaRadha SandersBella. [address] [place], [address], [place]. tel:[phone] PSYTX PT&/FAMILY 60 MINUTES [facility], [address] [place], [place], [id number] , [place] tel:+ [phone] [facility] Panic disorder [episodic paroxysmal anxiety] Sep- 4 Antelmo Blanco. [address] [place], [address], [place]. tel: [phone] PSYTX PT&/FAMILY 60 MINUTES [facility], [address] [place] [address], [id number] , [place] tel:+ [phone] [facility] Panic disorder [episodic paroxysmal anxiety] Sep-0 4 Antelmo Sandersnifer. [address] [place], [address], [place]. tel: [phone] [facility], [address] [place] [address], [id number] , [place] tel: [phone] [facility] Panic disorder [episodic paroxysmal anxiety] Sep-0 4 Antelmo Blanco. [address] [place], [address], [place]. tel: [phone] PSYTX PT&/FAMILY 60 MINUTES [facility], [address] [place] [address], [id number] , [place] tel: [phone] [facility] Panic disorder [episodic paroxysmal anxiety]Major depressive disorder, recurrent severe without psychotic features Sep-0 4 Antelmo Sandersnifer. [address] [place], [address], [place]. tel:+ [phone] PSYTX PT&/FAMILY 60 MINUTES [facility], [address] [place] [address], [id number] , [place] tel:+ [phone] [facility] Panic disorder [episodic paroxysmal anxiety]Major depressive disorder, recurrent severe without psychotic features 4 Antelmo Sandersnifer. [address] [place], [address], [place]. tel: [phone] PSYTX PT&/FAMILY 60 MINUTES [facility], [address] [place] [address], [id number] , [place] tel: [phone] [facility] Panic disorder [episodic paroxysmal anxiety]Major depressive disorder, recurrent severe without psychotic features 2 4 Antelmo Blanco. [address] [place], [address], [place]. tel: [phone] PSYTX PT&/FAMILY 60 MINUTES [facility], [address] [place] [address], [id number] , [place] tel: [phone] [facility] Panic disorder [episodic paroxysmal anxiety]Major depressive disorder, recurrent severe without psychotic features 4 Antelmo Blanco. [address] [place], [address], [place]. tel: [phone] PSYTX PT&/FAMILY 60 MINUTES [facility], [address] [place] [address], [id number] , [place] tel: [phone] [facility] Panic disorder [episodic paroxysmal anxiety]Major depressive disorder, recurrent severe without psychotic features 0 4 Antelmo Blanco. [address] [place], [address], [place]. tel: [phone] PSYTX PT&/FAMILY 60 MINUTES [facility], [address] [place] [address], [id number] , [place] tel: [phone] [facility] Panic disorder [episodic paroxysmal anxiety]Major depressive disorder, recurrent severe without psychotic features 0 4 Antelmo Blanco. [address] [place], [address], [place]. tel:[phone] PSYTX PT&/FAMILY 60 MINUTES [facility], [address] [place] [address], [id number] , [place] tel: [phone] [facility] Panic disorder [episodic paroxysmal anxiety]Major depressive disorder, recurrent severe without psychotic features Sep-0 4 Antelmo Blanco. [address] [place], [address], [place]. tel: [phone] PSYTX PT&/FAMILY 60 MINUTES [facility], [address] [place], [place], [id number] , [place] tel: [phone] [facility] Panic disorder [episodic paroxysmal anxiety]Major depressive disorder, recurrent severe without psychotic features 4 Antelmo Blanco. [address] [place], [address], [place]. tel: [phone] PSYTX PT&/FAMILY 60 MINUTES [facility], [address] [place] [address], [id number] , [place] tel: [phone] [facility] Panic disorder [episodic paroxysmal anxiety]Major depressive disorder, recurrent severe without psychotic features 4 Antelmo Blanco. [address] [place], [address], [place]. tel: [phone] PSYTX PT&/FAMILY 60 MINUTES [facility], [address] [place] [address], [id number] , [place] tel: [phone] [facility] Panic disorder [episodic paroxysmal anxiety]Major depressive disorder, recurrent severe without psychotic features 4 Antelmo Blanco. [address] [place], [address], [place]. tel: [phone] PSYTX PT&/FAMILY 60 MINUTES [facility], [address] [place] [address], [id number] , [place] tel: [phone] [facility] Panic disorder [episodic paroxysmal anxiety]Major depressive disorder, recurrent severe without psychotic features 4 Antelmo Blanco. [address] [place], [address], [place]. tel:[phone] PSYTX PT&/FAMILY 60 MINUTES [facility], [address] [place] [address], [id number] , [place] tel: [phone] [facility] Panic disorder [episodic paroxysmal anxiety]Major depressive disorder, recurrent severe without psychotic features 4 Antelmo Blanco. [address] [place], [address], [place]. tel: [phone] PSYCH DIAGNOSTIC EVALUATION [facility], [address] [place], [place], [id number] , [place] tel: [phone] [facility] Panic disorder [episodic paroxysmal anxiety]Major depressive disorder, recurrent severe without psychotic features 4 Rodriges MECHANICAL CAD DRAFTERPadmaja Bella. [address] [place], [address], [place]. tel: [phone] [facility], [address] [place], [place], [id number] , [place] tel: [phone] [facility] No Information 4 Tom Garza. [address] [place], [address], [place]. tel: [phone] [facility], [address] [place] [address], [id number] , [place] tel: [phone] [facility] No Information 4 Klidas Brooke. [address] [place] [address], [id number] , [place]. tel: [phone] [facility], [address] [place] [address], [id number] , [place] tel: [phone] [facility] Panic disorder [episodic paroxysmal anxiety]Major depressive disorder, recurrent severe without psychotic features 4 Antelmo LALAWPadmaja SandersBella. [address] [place], [address], [place]. tel: [phone] [facility], [address] [place], [place], [id number] , [place] tel: [phone] [facility] No Information 4 Klidas Brooke. [address] [place] [address], [id number] , [place]. tel: [phone] [facility], [address] [place] [address], [id number] , [place] tel: [phone] [facility] No Information 4 Klidas Brooke. [address] [place], [place], [id number] , [place]. tel: [phone] [facility], [address] [place], [place], [id number] , [place] tel: [phone] [facility] No Information 4 Klidas Brooke. [address] [place], [place], [id number] , [place]. tel: [phone] [facility], [address] [place], [place], [id number] , [place] tel: [phone] [facility] No Information 4 Klidas Brooke. [address] [place], [place], [id number] , [place]. tel: [phone] [facility], [address] [place] [address], [id number] , [place] tel: [phone] [facility] No Information 4 oTm Garza. [address] [place], [address], [place]. tel: [phone] [facility], [address] [place] [address], [id number] , [place] tel: [phone] [facility] ER (chief complaint) Body mass index [BMI] 45.0-49.9, adultEncounter for screening for dental disorders 4 Geoff Dahl. [address], [place], [id number] , [place]. tel: [phone] [facility], [address] [place], [place], [id number] , [place] tel: [phone] [facility] No Information 4 Klidas Brooke. [address] [place] [address], [id number] , [place]. tel: [phone] [facility], [address] [place] [address], [id number] , [place] tel: [phone] [facility] No Information 4 Lida Cox. [address] [place] [address], [id number] , [place]. tel: [phone] [facility], [address] [place] [address], [id number] , [place] tel: [phone] [facility] No Information Mar-0 4 Tom Garza. [address] [place] [address], [address], [place]. tel: [phone] [facility], [address] [place] [address], [id number] , [place] tel: [phone] [facility] No Information 0 4 Lida Cox. [address] [place] [address], [id number] , [place]. tel: [phone] [facility], [address] [place] [address], [id number] , [place] tel: [phone] [facility] No Information 4 Lida Cox. [address] [place] [address], [id number] , [place]. tel: [phone] Family History Family Member Type Diagnosis Age [...] e Goal FIT-DNA. Due on due Goal Tdap Vaccine. Due on 2024 due Goal Unhealthy drug use screening . Due on due Goal Tdap. Due on due Goal Hepatitis C screening. Due o n due Goal PRAPARE ASSESSMENT. Due on A [...] Goal Hep A. Due on e Goal PRAPARE ASSESSMENT. Due on A due Goal Depression screening. Due on due Goal FIT. Due on due Goal Hep A. Due on e Goal CT-Colonography. Due on due Goal Tdap [...] due Goal Mammogram. Due on due Goal CT-Colonography. Due on due Goal Colonoscopy. Due on due Goal FOBT. Due on due Goal Hepatitis C screening. Due o n due Goal Influenza vaccine. Due on Ap [...] due Goal Tdap. Due on due Goal Tdap. Due on [...] Goal Lipid panel. Due on due Goal HPV. Due on [...] Goal Depression screening. Due on due Goal Unhealthy drug use [...] due Goal Mammogram. Due on due Goal CT-Colonography. [...] Influenza vaccine. Due on Oc due Goal Tdap Vaccine. Due on 2023 due Goal Colonoscopy. Due on due Goal Unhealthy drug use screening . Due on due Goal FIT-DNA. Due on due Goal Mammogram. Due on due Goal CT-Colonography. [...] Influenza vaccine. Due on Oc due Goal Lipid panel. Due on due [...] Zoster vaccine (). Due on due Goal Hepatitis C screening. [...] Zoster vaccine (1st). Due on due Goal Hep A. Due [...] due Goal Influenza vaccine. Due on Se p due Goal Colonoscopy. Due on due Goal [...] e Goal Colonoscopy. Due on due Goal CT-Colonography. [...] PRAPARE ASSESSMENT. Due on A due Goal Unhealthy drug use screening . [...] due Goal Mammogram. Due on due Goal Mammogram. Due on [...] Hep A. Due on du e Goal Influenza vaccine. Due on due Goal [...] e Goal FIT-DNA. Due on due Goal Influenza [...] e Goal Tdap. Due on due Goal HPV. [...] Goal Lipid panel. Due on due Goal Dietary manageme nt education, guidance, and counseling completed Appointment Esme Reyes BOOKED Appointment Esme Reyes BOOKED History Of Present [...]
--- OUTSIDE RECORDS SUMMARY | 2024-08-27 07:45 | XMS_ITS | Encounter Summary ---
Demographics Address [address] [place] [address] Home Phone Mobile Phone Email Address Preferred Language ENG Marital Status Single Presybeterian Affiliation Unknown Race White Ethnic Group Not or Lati no Author Organization [facility] Address [address] [place] [address] Care Team Providers Care Cherry Cutter Name Role Phone Farhat Cabezas MD Primary Care Provider [phone] Farhat Cabezas MD Unavailable [phone] Farhat Cabezas MD Unavailable [phone] Source Comments In the event this information is protected by the Federal Confidentiality of Alcohol and Drug AbusePatient Records regulations: The Federal rules restrict any use of the information to criminally investigate or prosecute any alcohol or drug abuse patient.[facility] Encounter Details Date Type Department Care Team (Late st Contact Info) Description 08/20/2016 Get Medical Advice Rheumatology 57[address] [place] [address] Zabrina Culver MD 0413 [place], [place] [phone] RE: Non-Urgent Medical Question Social History Tobacco [...] encounter Miscellaneous Notes * Telephone Encounter - Zabrina Culver - 08/20/2016 5:48 PM EDT Call patient [...] 9:[address] [facility] Endocrinology [address] [place] [address] Greg Nina APRN.BENEFITS DIRECTOR [address] [place] [address] diabetes follow up with me in 3 months virtually 09/04/2024 11:[address] [facility] Gastroenterology [address] [address] Mika Rodgers MD 9500 [place], [place] 8[address] Esophageal stricture [K22.2]Diverticuliti s of colon [K57.32] 11/20/2024 1:[address] [facility] Endocrinology [address] [place] [address] Valdez Suarez MD [address] [place] [address] [place], [place] [phone] follow up in 6 months documented as of this encounter Visit Diagnoses Diagnosis Nausea and vomiting in adult- Primary Nausea with vomiting documented in this encounter Care Teams Cherry Cutter Relationship Specialty Start Date End Date Farhat Cabezas MD PCP - General Family Medicine 01/13/11 Farhat Cabezas MD Referring Family Medicine 01/08/22 Farhat Cabezas MD 1265 [place] [address] Referring Family Medicine 07/26/24 documented as of this encounter
--- OUTSIDE RECORDS SUMMARY | 2024-08-27 07:45 | XMS_ITS | Encounter Summary ---
Demographics Address [address] [place] [address] Home Phone Mobile Phone Email Address Preferred Language ENG Marital Status Single Jehovah'S Witness Affiliation Unknown Race White Ethnic Group Not or Lati no Author Organization [facility] Address [address] [place] [address] Care Team Providers Care Kosher Sealer Name Role Phone Farhat Cabezas MD Primary Care Provider [phone] Farhat Cabezas MD Unavailable [phone] Farhat Cabezas MD Unavailable [phone] Source Comments In the event this information is protected by the Federal Confidentiality of Alcohol and Drug AbusePatient Records regulations: The Federal rules restrict any use of the information to criminally investigate or prosecute any alcohol or drug abuse patient.[facility] Encounter Details Date Type Department Care Team (Late st Contact Info) Description 11/14/2020 Get Medical Advice Neurology [address] [place], [place] [phone] Jaelyn Rangel MD NO FORWARDING ADDRESS RE: [...] on file 01/16/2020 Data from: https://www.neighborhoodatlas.[facility]/. Last address used for calculation Not [...] Info) Description 08/30/2024 9:30 AM EDT [facility] Endocrinology [address] [place] [address] Greg Nina MARITZA.CORSAGE MAKER [address] [place] [address] diabetes follow up with me in 3 months virtually 09/04/2024 11:30 AM EDT [facility] Gastroenterology [address] [address] Mika Rodgers MD 9500 [place] [address] Esophageal stricture [K22.2]Diverticuliti s of colon [K57.32] 11/20/2024 1:00 PM EDT [facility] Endocrinology [address] [place] [address] Valdez Suarez MD [address] [place] [address] [address] [place], [place] 73174[address] follow up in 6 months documented as of this encounter Visit Diagnoses Not on filedocumented in this encounter Care Teams Kosher Sealer Relationship Specialty Start Date End Date Farhat Cabezas MD PCP - General Family Medicine 01/13/11 Farhat Cabezas MD Referring Family Medicine 01/08/22 Farhat Cabezas MD [address] [place] [address] Referring Family Medicine 07/26/24 documented as of this encounter
--- OUTSIDE RECORDS SUMMARY | 2024-08-27 07:45 | XMS_ITS | Encounter Summary ---
Demographics Address [address] [facility] [place] [address] Home Phone Mobile Phone Email Address Preferred Language ENG Marital Status Single Hindu Affiliation Unknown Race White Ethnic Group Not or Lati no Author Organization [facility] Address [address] [place] [address] Care Team Providers Care Nuclear Physicist Name Role Phone Farhat Cabezas MD Primary Care Provider [phone] Farhat Cabezas MD Unavailable [phone] Farhat Cabezas MD Unavailable [phone] Source Comments In the event this information is protected by the Federal Confidentiality of Alcohol and Drug AbusePatient Records regulations: The Federal rules restrict any use of the information to criminally investigate or prosecute any alcohol or drug abuse patient.[facility] Encounter Details Date Type Department Care Team (Late st Contact Info) Description 11/05/2020 Patient Msg [facility]tr for [facility] [address] [facility] [place] [id number] Provider, Ccf Referral- CONSULT FOR ACUPUNCTURE Social [...] N ot on file 01/16/2020 Data from: https://www.neighborhoodatlas.[facility]/. Last address used for calculation Not [...] Contact Info) Description 08/30/2024 9:30 AM EDT [facility] Endocrinology [address] [place] [address] Greg Nina, MARITZA.RISK ENGINEER [address] [place] [address] diabetes follow up with me in 3 months virtually 09/04/2024 11:30 AM EDT [facility] Gastroenterology [address] [address] Mika Rodgers MD 2733 [place], [place] [phone] Esophageal stricture [K22.2]Diverticuliti s of colon [K57.32] 11/20/2024 1:00 PM EDT [facility] Endocrinology [address] [place] [address] Valdez Suarez MD [address] [place] [address] [address] [place], [place] [phone] follow up in 6 months documented as of this encounter Visit Diagnoses Not on filedocumented in this encounter Care Teams Nuclear Physicist Relationship Specialty Start Date End Date Farhat Cabezas MD PCP - General Family Medicine 01/13/11 Farhat Cabezas MD Referring Family Medicine 01/08/22 Farhat Cabezas MD [address] [place] [address] Referring Family Medicine 07/26/24 documented as of this encounter
--- OUTSIDE RECORDS SUMMARY | 2024-08-27 07:45 | XMS_ITS | Encounter Summary ---
Author Organization [facility] Address [address] [place] [address] Care Team Providers Care Insulation Machine Operator Name Role Phone Farhat Cabezas MD Primary Care Provider [phone] Farhat Cabezas MD Unavailable [phone] Farhat Cabezas MD Unavailable [phone] Source Comments In the event this information is protected by the Federal Confidentiality of Alcohol and Drug AbusePatient Records regulations: The Federal rules restrict any use of the information to criminally investigate or prosecute any alcohol or drug abuse patient.[facility] Reason for Referral * MRI/CT (Routine) - Closed Specialty Diagnoses / Procedures Referred By Kalina burciaga Referred To Contact MR IMAGING Diagnoses Chronic right shoulder pain Procedures MRI SHOULDER WO IVCON RT MRI, JOINT UPPER EXTREM Lorenzo ePrry DO Phone: tel: fax: [place] [phone] Referral ID Status Reason Start Date Expiration Date Visits Requested Visits Authorized [id number] Closed Auto-Generated Referral Patient Cleared Patient agrees to sign AFR (INN Commercial or OON MA) 01/07/2021 02/07/2021 1 1 Encounter Details Date Type Department Care Team (Late st Contact Info) Description 12/27/2020 Get Medical Advice Rheumatology [address] [phone] Lorenzo Perry DO [address] [place] [address] MRI Social History Tobacco Use [...] ot on file 01/16/2020 Data from: https://www.neighborhoodatlas.medicine.[facility]/. Last address [...] Description 08/30/2024 9:30 AM EDT [facility] Endocrinology [address] [place] [address] Greg Nina APRN.PROGRAM COORDINATOR [address] [place], [place] [address] diabetes follow up with me in 3 months virtually 09/04/2024 11:30 AM EDT [facility] Gastroenterology [address] [address] Mika Rodgers MD 9500 [place], [place] 7875995 Esophageal stricture [K22.2]Diverticuliti s of colon [K57.32] 11/20/2024 1:00 PM EDT [facility] Endocrinology [address] [place] [address] Valdez Suarez MD [address] [place] [address] [place], [place] 7187635 follow up in 6 months documented as of this encounter Results * MRI SHOULDER WO IVCON RT (01/08/2021 1:30 PM EST) Anatomical Region Laterality Modality Shoulder Magnetic Resonan ce 01/08/2021 1:30 PM EST Impressions 01/08/2021 3:06 PM EST IMPRESSION: Very small near full-thickness tear of the supraspinatus tendon at the anterior leading edge. Background rotator cuff tendinosis. Directory Clerk: SILVIA Transcribe Date/Time: Jan 08 2021 1:46P Dictated by : GERARDO VALLEJO MD This examination was interpreted and the report reviewed and electronically signed by: GERARDO VALLEJO MD on Jan 08 2021 3:04PM EST Narrative 01/08/2021 3:06 PM EST * * *Final Report* * * DATE OF EXAM: Jan 08 2021 1:30PM [facility] 0240 - MRI SHOULDER WO [...] findings. Localizer images: Unremarkable. Procedure Note Provider, [facility] [place] - 01/08/2021 * * *Final Report* * * DATE OF EXAM: Jan 08 2021 1:30PM [facility] 0240 - MRI SHOULDER WO [...] anterior leading edge. Background rotator cuff tendinosis. Directory Clerk: [email or web address] Transcribe Date/Time: Jan 08 2021 1:46P Dictated [...] region documented in this encounter Care Teams Insulation Machine Operator Relationship Specialty Start Date End Date Farhat Cabezas MD PCP - General Family Medicine 01/13/11 Farhat Cabezas MD Referring Family Medicine 01/08/22 Farhat Cabezas MD 1265 [place] [address] Referring Family Medicine 07/26/24 documented as of this encounter
--- OUTSIDE RECORDS SUMMARY | 2024-08-27 07:45 | XMS_ITS | Encounter Summary ---
Author Organization [facility] Address [address] [place] [address] Care Team Providers Care Rock Wool Insulator Name Role Phone Farhat Cabezas MD Primary Care Provider [phone] Farhat Cabezas MD Unavailable [phone] Farhat Cabezas MD Unavailable [phone] Source Comments In the event this information is protected by the Federal Confidentiality of Alcohol and Drug AbusePatient Records regulations: The Federal rules restrict any use of the information to criminally investigate or prosecute any alcohol or drug abuse patient.[facility] Encounter Details Date Type Department Care Team (Late st Contact Info) Description 02/24/2017 Patient Msg Medical Records [address] [place] [address] Provider, Ccf Follow Up from Psychology Group [...] AM EDT [facility] Endocrinology [address] [place] [address] Greg Nina APRN.SNOW REMOVING SUPERVISOR [address] [place] [address] diabetes follow up with me in 3 months virtually 09/04/2024 11:30 AM EDT [facility] Gastroenterology [address] [address] Mika Rodgers MD 1402 [place], [place] [phone] Esophageal stricture [K22.2]Diverticuliti s of colon [K57.32] 11/20/2024 1:00 PM EDT [facility] Endocrinology [address] [place] [address] Valdez Suarez MD [address] [place] [address] [place], [place] 6307335 follow up in 6 months documented as of this encounter Visit Diagnoses Not on filedocumented in this encounter Care Teams Rock Wool Insulator Relationship Specialty Start Date End Date Farhat Cabezas MD PCP - General Family Medicine 01/13/11 Farhat Cabezas MD Referring Family Medicine 01/08/22 Farhat Cabezas MD [address] [place] [address] Referring Family Medicine 07/26/24 documented as of this encounter
--- OUTSIDE RECORDS SUMMARY | 2024-08-27 07:45 | XMS_ITS | Encounter Summary ---
Author Organization [facility] Address [address] [place] [address] Care Team Providers Care Bi Data Modeler Name Role Phone Farhat Cabezas MD Primary Care Provider [phone] Farhat Cabezas MD Unavailable [phone] Farhat Cabezas MD Unavailable [phone] Source Comments In the event this [...] Description 08/26/2017 Patient Msg General Surgery 9300 [place] [address] Monica Adam RN diarrhea Social [...] AM EDT [facility] Endocrinology [address] [place] [address] Greg Nina APRN.BANQUET SET UP PERSON [address] [place] [address] diabetes follow up with me in 3 months virtually 09/04/2024 11:30 AM EDT [facility] Gastroenterology [address] [address] Mika Rodgers MD 6490 [place] [address] Esophageal stricture [K22.2]Diverticuliti s of colon [K57.32] 11/20/2024 1:00 PM EDT [facility] Endocrinology [address] [place] [address] Valdez Suarez MD [address] [place] [address] [place], [place] 4039935 follow up in 6 months documented as of this encounter Visit Diagnoses Not on filedocumented in this encounter Care Teams Bi Data Modeler Relationship Specialty Start Date End Date Farhat Cabezas MD PCP - General Family Medicine 01/13/11 Farhat Cabezas MD Referring Family Medicine 01/08/22 Farhat Cabezas MD [facility] [place] [address] Referring Family Medicine 07/26/24 documented as of this encounter
--- OUTSIDE RECORDS SUMMARY | 2024-08-27 07:45 | XMS_ITS | Encounter Summary ---
Demographics Address [address] [facility] [place] [address] Home Phone Mobile Phone Email Address Preferred Language ENG Marital Status Single Roman Catholic Affiliation Unknown Race White Ethnic Group Not or Lati no Author Organization [facility] Address [address] [place] [address] Care Team Providers Care Bead Wire Insulator Name Role Phone Farhat Cabezas MD Primary Care Provider [phone] Farhat Cabezas MD Unavailable [phone] Farhat Cabezas MD Unavailable [phone] Source Comments In the event this information is protected by the Federal Confidentiality of Alcohol and Drug AbusePatient Records regulations: The Federal rules restrict any use of the information to criminally investigate or prosecute any alcohol or drug abuse patient.[facility] Encounter Details Date Type Department Care Team (Late st Contact Info) Description 02/04/2021 Get Medical Advice Rheumatology [address] [address] Lorenzo Perry DO 4302 [facility] [address] [place] [phone] Medication / Pain issues Social History Tobacco [...] on file 01/16/2020 Data from: https://www.neighborhoodatlas.medicine.[facility]/. Last address used for [...] Info) Description 08/30/2024 9:30 AM EDT [facility] Endocrinology [address] [place] [address] Greg Nina APRN.BRIDGE GANG WORKER [address] [place] [address] diabetes follow up with me in 3 months virtually 09/04/2024 11:30 AM EDT [facility] Gastroenterology [address] [address] Mika Rodgers MD 9500 [place] [address] Esophageal stricture [K22.2]Diverticuliti s of colon [K57.32] 11/20/2024 1:00 PM EDT [facility] Endocrinology [address] [place] [address] Valdez Suarez MD [address] [place] [address] [address] [place], [place] 7302535 follow up in 6 months documented as of this encounter Visit Diagnoses Not on filedocumented in this encounter Care Teams Bead Wire Insulator Relationship Specialty Start Date End Date Farhat Cabezas MD PCP - General Family Medicine 01/13/11 Farhat Cabezas MD Referring Family Medicine 01/08/22 Farhat Cabezas MD [address] [place] [address] Referring Family Medicine 07/26/24 documented as of this encounter
--- OUTSIDE RECORDS SUMMARY | 2024-08-27 07:45 | XMS_ITS | Encounter Summary ---
Demographics Address [address] [facility]3] [place] [address] Home Phone Mobile Phone Email Address Preferred Language ENG Marital Status Single Scientology Affiliation Unknown Race White Ethnic Group Not or Lati no Author Organization [facility] Address [address] [place] [address] Care Team Providers Care Die Engraver Name Role Phone Farhat Cabezas MD Primary Care Provider [phone] Farhat Cabezas MD Unavailable [phone] Farhat Cabezas MD Unavailable [phone] Source Comments In the event this [...] Patient Msg [facility] [address] [facility] [place] [id number] Provider, Ccf Request an Appointment Social History [...] N ot on file 01/16/2020 Data from: https://www.neighborhoodatlas.[facility]/. Last address used [...] AM EDT [facility] Endocrinology [address] [place] [address] Greg Nina APRN.SENIOR PROGRAM PLANNER [address] [place] [address] diabetes follow up with me in 3 months virtually 09/04/2024 11:30 AM EDT [facility] Gastroenterology [address] [address] Mika Rodgers MD 9500 [place], [place] 0[address] Esophageal stricture [K22.2]Diverticuliti s of colon [K57.32] 11/20/2024 1:00 PM EDT [facility] Endocrinology [address] [place] [address] Valdez Suarez MD [address] [place] [address] [address] [place], [place] 3744135 follow up in 6 months documented as of this encounter Visit Diagnoses Not on filedocumented in this encounter Care Teams Die Engraver Relationship Specialty Start Date End Date Farhat Cabezas MD PCP - General Family Medicine 01/13/11 Farhat Cabezas MD Referring Family Medicine 01/08/22 Farhat Cabezas MD [address] [place] [address] Referring Family Medicine 07/26/24 documented as of this encounter
--- OUTSIDE RECORDS SUMMARY | 2024-08-27 07:45 | XMS_ITS | Encounter Summary ---
Demographics Address [address] [place] [address] Home Phone Mobile Phone Email Address Preferred Language ENG Marital Status Single Yazidi Affiliation Unknown Race White Ethnic Group Not or Lati no Author Organization [facility] Address [address] [place] [address] Care Team Providers Care Lean Six Sigma Senior Specialist Name Role Phone Farhat Cabeazs MD Primary Care Provider [phone] Farhat Cabezas MD Unavailable [phone] Farhat Cabezas MD Unavailable [phone] Source Comments In the event this information is protected by the Federal Confidentiality of Alcohol and Drug AbusePatient Records regulations: The Federal rules restrict any use of the information to criminally investigate or prosecute any alcohol or drug abuse patient.[facility] Reason for Visit * Reason Comments Radiology XR Encounter Details Date Type Department Care Team (Late st Contact Info) Description 12/27/2020 Radiology Radiology 5700 [place], [place] 0043753 Altagracia Marinelli RT(R) Radiology XR Social History [...] N ot on file 01/16/2020 Data from: https://www.neighborhoodatlas.[facility]/. Last address used for [...] Contact Info) Description 08/30/2024 9:30 AM EDT [facility] Endocrinology [address] [place] [address] Greg Nina APRN.WATER PLANT OPERATOR [address] [place] [address] diabetes follow up with me in 3 months virtually 09/04/2024 11:30 AM EDT [facility] Gastroenterology [address] [address] Mika Rodgers MD [address]83 [place] [address] Esophageal stricture [K22.2]Diverticuliti s of colon [K57.32] 11/20/2024 1:00 PM EDT [facility] Endocrinology [address] [place] [address] Valdez Suarez MD [address] [place] [address] [address] [place], [place] 40496[address] follow up in 6 months documented as of this encounter Visit Diagnoses Not on filedocumented in this encounter Care Teams Lean Six Sigma Senior Specialist Relationship Specialty Start Date End Date Farhat Cabezas MD PCP - General Family Medicine 01/13/11 Farhat Cabezas MD Referring Family Medicine 01/08/22 Farhat Cabezas MD [address] [place] [address] Referring Family Medicine 07/26/24 documented as of this encounter
--- OUTSIDE RECORDS SUMMARY | 2024-08-27 07:45 | XMS_ITS | Encounter Summary ---
Demographics Address [address] [facility] [place] [address] Home Phone Mobile Phone Email Address Preferred Language ENG Marital Status Single Tenriism Affiliation Unknown Race White Ethnic Group Not or Lati no Author Organization [facility] Address [address] [place] [address] Care Team Providers Care Accounting Machine Servicer Name Role Phone Farhat Cabezas MD Primary Care Provider [phone] Farhat Cabezas MD Unavailable [phone] Farhat Cabezas MD Unavailable [phone] Source Comments In the event this information is protected by the Federal Confidentiality of Alcohol and Drug AbusePatient Records regulations: The Federal rules restrict any use of the information to criminally investigate or prosecute any alcohol or drug abuse patient.[facility] Encounter Details Date Type Department Care Team (Late st Contact Info) Description 12/11/2020 Patient Msg Pain Management 2550 [place], [place] [phone] Provider, Ccf 3 month virtual appointment with [...] N ot on file 01/16/2020 Data from: https://www.neighborhoodatlas.medicine.[facility]/. Last address used for calculation Not [...] Description 08/30/2024 9:30 AM EDT [facility] Endocrinology [address] [place] [address] Greg Nina, MARITZA.MAGAZINE JOURNALIST [address] [place] [address] diabetes follow up with me in 3 months virtually 09/04/2024 11:30 AM EDT [facility] Gastroenterology [address] [address] Mika Rodgers MD 9500 [place], [place] [address]24[address] Esophageal stricture [K22.2]Diverticuliti s of colon [K57.32] 11/20/2024 1:00 PM EDT [facility] Endocrinology [address] [place] [address] Valdez Suarez MD [address] [place] [address] [place], [place] 8490935 follow up in 6 months documented as of this encounter Visit Diagnoses Not on filedocumented in this encounter Care Teams Accounting Machine Servicer Relationship Specialty Start Date End Date Farhat Cabezas MD PCP - General Family Medicine 01/13/11 Farhat Cabezas MD Referring Family Medicine 01/08/22 Farhat Cabezas MD 1265 [place] [address] Referring Family Medicine 07/26/24 documented as of this encounter
--- OUTSIDE RECORDS SUMMARY | 2024-08-27 07:45 | XMS_ITS | Encounter Summary ---
Author Organization [facility] Address [address] [place] [address] Care Team Providers Care Cna Caregiver Name Role Phone Farhat Cabezas MD Primary Care Provider [phone] Farhat Cabezas MD Unavailable [phone] Farhat Cabezas MD Unavailable [phone] Source Comments In the event this [...] Description 10/27/2016 Patient Msg General Surgery [address] [place] [address] Monica Adam RN Survey Social [...] 9:30 AM EDT [facility] Endocrinology [address] [place] [phone] Greg Nina APRN.ASSEMBLY LEAD PERSON [address] [place] [address] diabetes follow up with me in 3 months virtually 09/04/2024 11:30 AM EDT [facility] Gastroenterology [address] [address] Mika Rodgers MD [address] [place] [address] Esophageal stricture [K22.2]Diverticuliti s of colon [K57.32] 11/20/2024 1:00 PM EDT [facility] Endocrinology [address] [place] [address] Valdez Suarez MD [address] [place] [address] [address] [place], [place] 54[address] follow up in 6 months documented as of this encounter Visit Diagnoses Not on filedocumented in this encounter Care Teams Cna Caregiver Relationship Specialty Start Date End Date Farhat Cabezas MD PCP - General Family Medicine 01/13/11 Farhat Cabezas MD Referring Family Medicine 01/08/22 Farhat Cabezas MD [address] [place] [address] Referring Family Medicine 07/26/24 documented as of this encounter
--- OUTSIDE RECORDS SUMMARY | 2024-08-27 07:45 | XMS_ITS | Encounter Summary ---
Author Organization [facility] Address [facility] [place] [address] Care Team Providers Care Automation Control Integrator Name Role Phone Farhat Cabezas MD Primary Care Provider [phone] Farhat Cabezas MD Unavailable [phone] Farhat Cabezas MD Unavailable [phone] Source Comments In the event this information is protected by the Federal Confidentiality of Alcohol and Drug AbusePatient Records regulations: The Federal rules restrict any use of the information to criminally investigate or prosecute any alcohol or drug abuse patient.[facility] Encounter Details Date Type Department Care Team (Late st Contact Info) Description 10/25/2016 Patient Msg Medical Records [address] [place] [address] Provider, [facility] Medical Education Program [...] EDT [facility] Endocrinology [address] [place] [address] Greg Nina APRN.EXCHANGE FLOOR MANAGER [address] [place] [address] diabetes follow up with me in 3 months virtually 09/04/2024 11:30 AM EDT [facility] Gastroenterology [address] [address] Mika Rodgers MD [address] [place] [address] Esophageal stricture [K22.2]Diverticuliti s of colon [K57.32] 11/20/2024 1:00 PM EDT [facility] Endocrinology [address] [place] [address] Valdez Suarez MD [address] [place] [address] [address] [place], [place] 6534[address] follow up in 6 months documented as of this encounter Visit Diagnoses Not on filedocumented in this encounter Care Teams Automation Control Integrator Relationship Specialty Start Date End Date Farhat Cabezas MD PCP - General Family Medicine 01/13/11 Farhat Cabezas MD Referring Family Medicine 01/08/22 Farhat Cabezas MD [address] [place] [address] Referring Family Medicine 07/26/24 documented as of this encounter
--- OUTSIDE RECORDS SUMMARY | 2024-08-27 07:45 | XMS_ITS | Encounter Summary ---
Demographics Address [address] [facility] [place] [address] Home Phone Mobile Phone Email Address Preferred Language ENG Marital Status Single Scientologist Affiliation Unknown Race White Ethnic Group Not or Lati no Author Organization [facility] Address [address] [place] [address] Care Team Providers Care Batch Room Technician Name Role Phone Farhat Cabezas MD Primary Care Provider [phone] Farhat Cabezas MD Unavailable [phone] Farhat Cabezas MD Unavailable [phone] Source Comments In the event this information is protected by the Federal Confidentiality of Alcohol and Drug AbusePatient Records regulations: The Federal rules restrict any use of the information to criminally investigate or prosecute any alcohol or drug abuse patient.[facility] Encounter Details Date Type Department Care Team (Late st Contact Info) Description 12/22/2020 Patient Msg Rheumatology [address] [address] Lorenzo Perry DO [address] [facility] [address] [place] [address] Request an Appointment Social History Tobacco Use [...] ot on file 01/16/2020 Data from: https://www.neighborhoodatlas.medicine.[facility]/. Last address used [...] AM EDT [facility] Endocrinology [address] [place] [address] Greg Nina APRN.FISHER LAMPARA NET [address] [place] [address] diabetes follow up with me in 3 months virtually 09/04/2024 11:30 AM EDT [facility] Gastroenterology [address] [address] Mika Rodgers MD [address] [place] [address] Esophageal stricture [K22.2]Diverticuliti s of colon [K57.32] 11/20/2024 1:00 PM EDT [facility] Endocrinology [address] [place] [address] Valdez Suarez MD [address] [place] [address] [address] [place], [place] [phone] follow up in 6 months documented as of this encounter Visit Diagnoses Not on filedocumented in this encounter Care Teams Batch Room Technician Relationship Specialty Start Date End Date Farhat Cabezas MD PCP - General Family Medicine 01/13/11 Farhat Cabezas MD Referring Family Medicine 01/08/22 Farhat Cabezas MD [address] [place] [address] Referring Family Medicine 07/26/24 documented as of this encounter
--- OUTSIDE RECORDS SUMMARY | 2024-08-27 07:45 | XMS_ITS | Encounter Summary ---
Author Organization [facility] Address [address] [place] [address] Care Team Providers Care Software Design Manager Name Role Phone Farhat Cabezas MD Primary Care Provider [phone] Farhat Cabezas MD Unavailable [phone] Farhat Cabezas MD Unavailable [phone] Source Comments In the event this information is protected by the Federal Confidentiality of Alcohol and Drug AbusePatient Records regulations: The Federal rules restrict any use of the information to criminally investigate or prosecute any alcohol or drug abuse patient.[facility] Encounter Details Date Type Department Care Team (Late st Contact Info) Description 08/31/2016 Patient Msg Medical Records [address] [place] [address] Provider, [facility] Medical Education Program [...] Description 08/30/2024 9:30 AM EDT [facility] Endocrinology [address] [place] [address] Greg Nina APRN.PERSONAL CARE AIDE [address] [place] [address] diabetes follow up with me in 3 months virtually 09/04/2024 11:30 AM EDT [facility] Gastroenterology [address] [address] Mika Rodgers MD [address] [place] [address] Esophageal stricture [K22.2]Diverticuliti s of colon [K57.32] 11/20/2024 1:00 PM EDT [facility] Endocrinology [address] [place] [address] Valdez Suarez MD [address] [place] [address] [address] [place], [place] 3425335 follow up in 6 months documented as of this encounter Visit Diagnoses Not on filedocumented in this encounter Care Teams Software Design Manager Relationship Specialty Start Date End Date Farhat Cabezas MD PCP - General Family Medicine 01/13/11 Farhat Cabezas MD Referring Family Medicine 01/08/22 Farhat Cabezas MD [address] [place] [address] Referring Family Medicine 07/26/24 documented as of this encounter
--- OUTSIDE RECORDS SUMMARY | 2024-08-27 07:45 | XMS_ITS | Encounter Summary ---
Demographics Address [address] [place] [address] Home Phone Mobile Phone Email Address Preferred Language ENG Marital Status Single Jain Affiliation Unknown Race White Ethnic Group Not or Lati no Author Organization [facility] Address [address] [place] [address] Care Team Providers Care Head Swamper Name Role Phone Farhat Cabezas MD Primary Care Provider [phone] Farhat Cabezas MD Unavailable [phone] Farhat Cabezas MD Unavailable [phone] Source Comments In the event this information is protected by the Federal Confidentiality of Alcohol and Drug AbusePatient Records regulations: The Federal rules restrict any use of the information to criminally investigate or prosecute any alcohol or drug abuse patient.[facility] Reason for Visit * Reason Comments Radiology XR Encounter Details Date Type Department Care Team (Late st Contact Info) Description 11/21/2020 Radiology General Radiology [address] [place] [address] Jonah Pavon, RT(R) Radiology XR Social History [...] N ot on file 01/16/2020 Data from: https://www.neighborhoodatlas.[facility]/. Last address used for [...] Contact Info) Description 08/30/2024 9:30 AM EDT [facility] Endocrinology [address] [place] [address] Greg Nina APRN.[employer] [address] [place], [place] 8[address] diabetes follow up with me in 3 months virtually 09/04/2024 11:30 AM EDT [facility] Gastroenterology [address] [address] Mika Rodgers MD [address]00 [place] [address] Esophageal stricture [K22.2]Diverticuliti s of colon [K57.32] 11/20/2024 1:00 PM EDT [facility] Endocrinology [address] [place] [address] Valdez Suarez MD [address] [place] [address] [place] [address] follow up in 6 months documented as of this encounter Visit Diagnoses Not on filedocumented in this encounter Care Teams Head Swamper Relationship Specialty Start Date End Date Farhat Cabezas MD PCP - General Family Medicine 01/13/11 Farhat Cabezas MD Referring Family Medicine 01/08/22 Farhat Cabezas MD [address] [place] [address] Referring Family Medicine 07/26/24 documented as of this encounter
--- OUTSIDE RECORDS SUMMARY | 2024-08-27 07:45 | XMS_ITS | Encounter Summary ---
Demographics Address [address] [place] [address] Home Phone Mobile Phone Email Address Preferred Language ENG Marital Status Single Rastafari Affiliation Unknown Race White Ethnic Group Not or Lati no Author Organization [facility] Address [facility] [place] [address] Care Team Providers Care General Administrator Name Role Phone Farhat Cabezas MD Primary Care Provider [phone] Farhat Cabezas MD Unavailable [phone] Farhat Cabezas MD Unavailable [phone] Source Comments In the event this information is protected by the Federal Confidentiality of Alcohol and Drug AbusePatient Records regulations: The Federal rules restrict any use of the information to criminally investigate or prosecute any alcohol or drug abuse patient.[facility] Encounter Details Date Type Department Care Team (Late st Contact Info) Description 11/22/2020 Get Medical Advice [facility] Physical Therapy [address] [place] [address] Tammy Rodriges, CARY [address] [place] [address] Upcoming Appointment Question Social History [...] N ot on file 01/16/2020 Data from: https://www.neighborhoodatlas.medicine.[facility]/. Last address used for calculation Not [...] 08/30/2024 9:30 AM EDT [facility] Endocrinology [address] [place] [address] Greg Nina APRN.CHRONOGRAPH OPERATOR [address] [place], [place] 83[address] diabetes follow up with me in 3 months virtually 09/04/2024 11:30 AM EDT [facility] Gastroenterology [address] [address] Mika Rodgers MD [address] [place] [address] Esophageal stricture [K22.2]Diverticuliti s of colon [K57.32] 11/20/2024 1:00 PM EDT [facility] Endocrinology [address] [place] [address] Valdez Suarez MD [address] [place] [address] [address] [place], [place] 7[address]35 follow up in 6 months documented as of this encounter Visit Diagnoses Not on filedocumented in this encounter Care Teams General Administrator Relationship Specialty Start Date End Date Farhat Cabezas MD PCP - General Family Medicine 01/13/11 Farhat Cabezas MD Referring Family Medicine 01/08/22 Farhat Cabezas MD [address] [place] [address] Referring Family Medicine 07/26/24 documented as of this encounter
--- OUTSIDE RECORDS SUMMARY | 2024-08-27 07:46 | XMS_ITS | Encounter Summary ---
Demographics Address [address] [place] [address] Home Phone Mobile Phone Email Address Preferred Language ENG Marital Status Single Worship Affiliation Unknown Race White Ethnic Group Not or Lati no Author Organization [facility] Address [facility] [place] [address] Care Team Providers Care Sole Blacker Name Role Phone Farhat Cabezas MD Primary Care Provider [phone] Farhat Cabezas MD Unavailable [phone] Farhat Cabezas MD Unavailable [phone] Source Comments In the event this information is protected by the Federal Confidentiality of Alcohol and Drug AbusePatient Records regulations: The Federal rules restrict any use of the information to criminally investigate or prosecute any alcohol or drug abuse patient.[facility] Encounter Details Date Type Department Care Team (Late st Contact Info) Description 11/17/2022 Get Medical Advice Neurology 5[address] [place] [address] Thaddeus Diggs MD [address] [place] [address] Neck/ Neuro / symptoms Social [...] is lower risk 4 06/11/2022 Data from: https://www.neighborhoodatlas.medicine.[facility]/. Last address used for calculation [address] 06/11/2022 Comments No Sex and Gender [...] EDT [facility] Endocrinology [address] [place] [address] Greg Nina, MARITZA.AUTOMOBILE MECHANIC SUPERVISOR [address] [place] [address] diabetes follow up with me in 3 months virtually 09/04/2024 11:30 AM EDT [facility] Gastroenterology [address] [address] Mika Rodgers MD [address] [place], [place] [address] Esophageal stricture [K22.2]Diverticuliti s of colon [K57.32] 11/20/2024 1:00 PM EDT [facility] Endocrinology [address] [place] [address] Valdez Suarez MD [address] [place] [address] [address] [place], [place] [address]2435 follow up in 6 months documented as of this encounter Visit Diagnoses Not on filedocumented in this encounter Care Teams Sole Blacker Relationship Specialty Start Date End Date Farhat Cabezas MD PCP - General Family Medicine 01/13/11 Farhat Cabezas MD Referring Family Medicine 01/08/22 [place] [address] [place] [address] Referring Family Medicine 07/26/24 documented as of this encounter
--- OUTSIDE RECORDS SUMMARY | 2024-08-27 07:46 | XMS_ITS | Encounter Summary ---
Demographics Address [address] [facility] [place] [address] Home Phone Mobile Phone Email Address Preferred Language ENG Marital Status Single Temple Affiliation Unknown Race White Ethnic Group Not or Lati no Author Organization [facility] Address [address] [place] [address] Care Team Providers Care Rag Shredder Name Role Phone Farhat Cabezas MD Primary Care Provider [phone] Farhat Cabezas MD Unavailable [phone] Farhat Cabezas MD Unavailable [phone] Source Comments In the event this information is protected by the Federal Confidentiality of Alcohol and Drug AbusePatient Records regulations: The Federal rules restrict any use of the information to criminally investigate or prosecute any alcohol or drug abuse patient.[facility] Encounter Details Date Type Department Care Team (Late st Contact Info) Description 04/14/2023 Get Medical Advice Gastroenterology [address] [address] Adilene Morgan APRN.[facility] 9500 [place] [address] ABD PAIN, VOMITTING / OBSTRUCTION? [...] is lower risk 2 12/21/2022 Data from: https://www.neighborhoodatlas.medicine.[facility]/. Last address used for calculation [...] Info) Description 08/30/2024 9:30 AM EDT [facility] Endocrinology [address] [place] [address] Greg Nina, MARITZA.DIRECTOR OF RESPIRATORY THERAPY [address] [place] [address] diabetes follow up with me in 3 months virtually 09/04/2024 11:30 AM EDT [facility] Gastroenterology [address] [address] Mika Rodgers MD [address]3 [place], [place] [address] Esophageal stricture [K22.2]Diverticuliti s of colon [K57.32] 11/20/2024 1:00 PM EDT [facility] Endocrinology [address] [place] [address] Valdez Suarez MD [address] [place] [address] [place], [place] 4873[address] follow up in 6 months documented as of this encounter Visit Diagnoses Not on filedocumented in this encounter Care Teams Rag Shredder Relationship Specialty Start Date End Date Farhat Cabezas MD PCP - General Family Medicine 01/13/11 Farhat Cabezas MD Referring Family Medicine 01/08/22 [place] [address] [place] [address] Referring Family Medicine 07/26/24 documented as of this encounter
--- OUTSIDE RECORDS SUMMARY | 2024-08-27 07:46 | XMS_ITS | Encounter Summary ---
Demographics Address [address] [facility] [place] [address] Home Phone Mobile Phone Email Address [email or web address] Preferred Language ENG Marital Status Single Religion Affiliation Unknown Race White Ethnic Group Not or Lati no Author Organization [facility] Address [address] [place] [address] Care Team Providers Care Tank Tester Name Role Phone Farhat Cabezas MD Primary Care Provider [phone] Farhat Cabezas MD Unavailable [phone] Farhat Cabezas MD Unavailable [phone] Source Comments In the event this information is protected by the Federal Confidentiality of Alcohol and Drug AbusePatient Records regulations: The Federal rules restrict any use of the information to criminally investigate or prosecute any alcohol or drug abuse patient.[facility] Encounter Details Date Type Department Care Team (Late st Contact Info) Description 02/05/2021 Get Medical Advice Rheumatology [address] [address] Lorenzo Perry DO 4302 [facility] [address] [place] [phone] Fever / aches Social History Tobacco Use [...] N ot on file 01/16/2020 Data from: https://www.neighborhoodatlas.medicine.[facility]/. Last address used for [...] AM EDT [facility] Endocrinology [address] [place] [address] Greg Nina APRN.RADIATION THERAPIST [address] [place] [address] diabetes follow up with me in 3 months virtually 09/04/2024 11:30 AM EDT [facility] Gastroenterology [address] [address] Mika Rodgers MD [address] [place] [address] Esophageal stricture [K22.2]Diverticuliti s of colon [K57.32] 11/20/2024 1:00 PM EDT [facility] Endocrinology [address] [place] [address] Valdez Suarez MD [address] [place] [address] [address] [place], [place] 7[address]4735 follow up in 6 months documented as of this encounter Visit Diagnoses Not on filedocumented in this encounter Care Teams Tank Tester Relationship Specialty Start Date End Date Farhat Cabezas MD PCP - General Family Medicine 01/13/11 Farhat Cabezas MD Referring Family Medicine 01/08/22 Farhat Cabezas MD [address] [place] [address] Referring Family Medicine 07/26/24 documented as of this encounter
--- OUTSIDE RECORDS SUMMARY | 2024-08-27 07:46 | XMS_ITS | Encounter Summary ---
Demographics Address [address] [place] [address] Home Phone Mobile Phone Email Address Preferred Language ENG Marital Status Single Mandaen Affiliation Unknown Race White Ethnic Group Not or Lati no Author Organization [facility] Address [address] [place] [address] Care Team Providers Care Dental Detail Representative Name Role Phone Farhat Cabezas MD Primary Care Provider [phone] Farhat Cabezas MD Unavailable [phone] Farhat Cabezas MD Unavailable [phone] Source Comments In the event this information is protected by the Federal Confidentiality of Alcohol and Drug AbusePatient Records regulations: The Federal rules restrict any use of the information to criminally investigate or prosecute any alcohol or drug abuse patient.[facility] Encounter Details Date Type Department Care Team (Late st Contact Info) Description 04/21/2023 Patient Msg Endocrinology [address] [place] [address] [place] [address] [place] [address] Report Next Steps Social History [...] is lower risk 2 12/21/2022 Data from: https://www.neighborhoodatlas.medicine.[facility]/. Last address used for [...] Contact Info) Description 08/30/2024 9:30 AM EDT [facility] Endocrinology [address] [place] [address] Greg Nina APRN.EMERGENCY DOCTOR [address] [place] [address] diabetes follow up with me in 3 months virtually 09/04/2024 11:30 AM EDT [facility] Gastroenterology [address] [address] Mika Rodgers MD [address] [place] [address] Esophageal stricture [K22.2]Diverticuliti s of colon [K57.32] 11/20/2024 1:00 PM EDT [facility] Endocrinology [address] [place] [address] Valdez Suarez MD [address] [place] [address] [place], [place] 43[address] follow up in 6 months documented as of this encounter Visit Diagnoses Not on filedocumented in this encounter Care Teams Dental Detail Representative Relationship Specialty Start Date End Date Farhat Cabezas MD PCP - General Family Medicine 01/13/11 Farhat Cabezas MD Referring Family Medicine 01/08/22 Farhat Cabezas MD [address] [place] [address] Referring Family Medicine 07/26/24 documented as of this encounter
--- OUTSIDE RECORDS SUMMARY | 2024-08-27 07:46 | XMS_ITS | Encounter Summary ---
Demographics Address [address] [place] [address] Home Phone Mobile Phone Email Address Preferred Language ENG Marital Status Single Christianity Affiliation Unknown Race White Ethnic Group Not or Lati no Author Organization [facility] Address [address] [place] [address] Care Team Providers Care Manager Strategic Development Name Role Phone Farhat Cabezas MD Primary Care Provider [phone] Farhat Cabezas MD Unavailable Farhat Cabezas MD Unavailable [phone] Source Comments In the event this information is protected by the Federal Confidentiality of Alcohol and Drug AbusePatient Records regulations: The Federal rules restrict any use of the information to criminally investigate or prosecute any alcohol or drug abuse patient.[facility] Encounter Details Date Type Department Care Team (Late st Contact Info) Description 04/29/2023 Patient [facility] [place] [address] Renetta Moore RPh At your next appointment, choose [facility]. Social History Tobacco Use Types Packs/Day [...] risk 2 12/21/2022 Data from: https://www.neighborhoodatlas.[facility]/. Last address used for calculation 543 [...] 08/30/2024 9:30 AM EDT [facility] [address] [place] [phone] Greg Nina APRN.FRUIT PITTER [address] [place], [place] [phone] diabetes follow up with me in 3 months virtually 09/04/2024 11:30 AM EDT [facility] Gastroenterology [address] [address] Mika Rodgers MD [address] [place] [address] Esophageal stricture [K22.2]Diverticuliti s of colon [K57.32] 11/20/2024 1:00 PM EDT [facility] Endocrinology [address] [place] [address] Valdez Suarez MD [address] [place] [address] [place] [address] follow up in 6 months documented as of this encounter Visit Diagnoses Not on filedocumented in this encounter Care Teams Manager Strategic Development Relationship Specialty Start Date End Date Farhat Cabezas MD PCP - General Family Medicine 01/13/11 Farhat Cabezas MD Referring Family Medicine 01/08/22 Farhat Cabezas MD [address] [place] [address] Referring Family Medicine 07/26/24 documented as of this encounter
--- OUTSIDE RECORDS SUMMARY | 2024-08-27 07:46 | XMS_ITS | Encounter Summary ---
Demographics Address [address] [place] [address] Home Phone Mobile Phone Email Address Preferred Language ENG Marital Status Single Christianity Affiliation Unknown Race White Ethnic Group Not or Lati no Author Organization [facility] Address [address] [place] [address] Care Team Providers Care Community Development Director Name Role Phone Farhat Cabezas MD Primary Care Provider [phone] Farhat Cabezas MD Unavailable [phone] Farhat Cabezas MD Unavailable [phone] Source Comments In the event this information is protected by the Federal Confidentiality of Alcohol and Drug AbusePatient Records regulations: The Federal rules restrict any use of the information to criminally investigate or prosecute any alcohol or drug abuse patient.[facility] Encounter Details Date Type Department Care Team (Late st Contact Info) Description 08/24/2024 Patient [facility] [place] [address] Renetta Moore RPh At your next appointment, choose [facility]. Social History Tobacco Use Types [...] is lower risk 7 03/07/2024 Data from: https://www.neighborhoodatlas.[facility]/ . Last address used for calculation [...] EDT [facility] Endocrinology [address] [place] [address] Greg Nina APRN.SUPERVISOR PIPELINE [address] [place] [address] diabetes follow up with me in 3 months virtually 09/04/2024 11:30 AM EDT [facility] Gastroenterology [address] [address] Mika Rodgers MD [address] [place], [place] [phone] Esophageal stricture [K22.2]Diverticuliti s of colon [K57.32] 11/20/2024 1:[address] [facility] Endocrinology [address] [place] [address] Valdez Suarez MD [address] [facility] [address] [place], [place] [address] follow up in 6 months documented as of this encounter Visit Diagnoses Not on filedocumented in this encounter Care Teams Community Development Director Relationship Specialty Start Date End Date Farhat Cabezas MD PCP - General Family Medicine 01/13/11 Farhat Cabezas MD Referring Family Medicine 01/08/22 Farhat Cabezas MD [address] [place] [address] Referring Family Medicine 07/26/24 documented as of this encounter
--- OUTSIDE RECORDS SUMMARY | 2024-08-27 07:46 | XMS_ITS | Encounter Summary ---
Demographics Address [address] [facility] [place] [address] Home Phone Mobile Phone Email Address Preferred Language ENG Marital Status Single Druze Affiliation Unknown Race White Ethnic Group Not or Lati no Author Organization [facility] Address [address] [place] [address] Care Team Providers Care Production Team Manager Name Role Phone Farhat Cabezas MD Primary Care Provider [phone] Farhat Cabezas MD Unavailable [phone] Farhat Cabezas MD Unavailable [phone] Source Comments In the event this information is protected by the Federal Confidentiality of Alcohol and Drug AbusePatient Records regulations: The Federal rules restrict any use of the information to criminally investigate or prosecute any alcohol or drug abuse patient.[facility] Reason for Visit * Reason Comments Refill Request Encounter Details Date Type Department Care Team (Late st Contact Info) Description 08/23/2024 Refill General Surgery 9300 [place] [address] Rachel Yi MD 6732 [place] [address] Refill Request Social History Tobacco Use Types Packs/Day [...] lower risk 7 03/07/2024 Data from: https://www.neighborhoodatlas.medicine.[facility]/ . Last address used for calculation [...] 12:43 PM Moan DuboseRn) (Hist), RN * Because of a [...] AM EDT [facility] Endocrinology [address] [place] [address] Greg Nina APRN.HEALTH INSPECTOR [address] [place] [address] diabetes follow up with me in 3 months virtually 09/04/2024 11:30 AM EDT [facility] Gastroenterology [address] [address] Mika Rodgers MD [address] [place], [place] [phone] Esophageal stricture [K22.2]Diverticuliti s of colon [K57.32] 11/20/2024 1:00 PM EDT [facility] Endocrinology [address] [place] [address] Valdez Suarez MD [address] [place] [address] [place], [place] [phone] follow up in 6 months documented as of this encounter Visit Diagnoses Diagnosis Rheumatoid arthritis without rheumatoid factor, multiple sites (HCC) Other specified abnormal immunological findings in serum documented in this encounter Care Teams Production Team Manager Relationship Specialty Start Date End Date Farhat Cabezas MD PCP - General Family Medicine 01/13/11 Farhat Cabezas MD Referring Family Medicine 01/08/22 Farhat Cabezas MD [address] [place] [address] Referring Family Medicine 07/26/24 documented as of this encounter
--- OUTSIDE RECORDS SUMMARY | 2024-08-27 07:46 | XMS_ITS | Encounter Summary ---
Demographics Address [address] [place] [address] Home Phone Mobile Phone Email Address Preferred Language ENG Marital Status Single Anabaptist Affiliation Unknown Race White Ethnic Group Not or Lati no Author Organization [facility] Address [address] [place] [address] Care Team Providers Care Photo Mask Pattern Generator Name Role Phone Farhat Cabezas MD Primary Care Provider [phone] Farhat Cabezas MD Unavailable [phone] Farhat Cabezas MD Unavailable [phone] Source Comments In the event this information is protected by the Federal Confidentiality of Alcohol and Drug AbusePatient Records regulations: The Federal rules restrict any use of the information to criminally investigate or prosecute any alcohol or drug abuse patient.[facility] Encounter Details Date Type Department Care Team (Late st Contact Info) Description 02/12/2023 Patient Msg Endocrinology [address] [place] [address] [place] [address] [place] [address] Crisis Lifeline Social History Tobacco [...] risk 2 12/21/2022 Data from: https://www.neighborhoodatlas.medicine.[facility]/. Last address used for calculation 543 [...] Description 08/30/2024 9:30 AM EDT [facility] Endocrinology [address] [place] [phone] Greg Nina APRN.STONER HAND [address] [place] [address] diabetes follow up with me in 3 months virtually 09/04/2024 11:30 AM EDT [facility] Gastroenterology [address] [address] Mika Rodgers MD [address] [place] [address] Esophageal stricture [K22.2]Diverticuliti s of colon [K57.32] 11/20/2024 1:00 PM EDT [facility] Endocrinology [address] [place] [address] Valdez Suarez MD [address] [place] [address] [address] [place], [place] [phone] follow up in 6 months documented as of this encounter Visit Diagnoses Not on filedocumented in this encounter Care Teams Photo Mask Pattern Generator Relationship Specialty Start Date End Date Farhat Cabezas MD PCP - General Family Medicine 01/13/11 Farhat Cabezas MD Referring Family Medicine 01/08/22 Farhat Cabezas MD 1265 [place] [address] Referring Family Medicine 07/26/24 documented as of this encounter
--- OUTSIDE RECORDS SUMMARY | 2024-08-27 07:46 | XMS_ITS | Encounter Summary ---
Demographics Address [address] [place] [address] Home Phone Mobile Phone Email Address Preferred Language ENG Marital Status Single Pentecostal Affiliation Unknown Race White Ethnic Group Not or Lati no Author Organization [facility] Address [address] [place] [address] Care Team Providers Care Athletic Turf Worker Name Role Phone Farhat Cabezas MD Primary Care Provider [phone] Farhat Cabezas MD Unavailable [phone] Farhat Cabezas MD Unavailable [phone] Source Comments In the event this information is protected by the Federal Confidentiality of Alcohol and Drug AbusePatient Records regulations: The Federal rules restrict any use of the information to criminally investigate or prosecute any alcohol or drug abuse patient.[facility] Encounter Details Date Type Department Care Team (Late st Contact Info) Description 04/26/2023 GI Preprocedure Call Gastroenterology [address] [phone] Shania Sotomayor LPN Social History Tobacco Use [...] 12/21/2022 Data from: https://www.neighborhoodatlas.[facility]/. Last address used [...] Contact Info) Description 08/30/2024 9:30 AM EDT [facility] Endocrinology [address] [place] [address] Greg Nina APRN.FORMAL SERVICE WAITER [address] [place], [place] [phone] diabetes follow up with me in 3 months virtually 09/04/2024 11:30 AM EDT [facility] [address] [address] Mika Rodgers MD [address] [facility] [address] Esophageal stricture [K22.2]Diverticuliti s of colon [K57.32] 11/20/2024 1:00 PM EDT [facility] Endocrinology [address] [place] [address] Valdez Suarez MD [address] [facility] [address] [place], [place] 60168[address] follow up in 6 months documented as of this encounter Visit Diagnoses Not on filedocumented in this encounter Care Teams Athletic Turf Worker Relationship Specialty Start Date End Date Farhat Cabezas MD PCP - General Family Medicine 01/13/11 Farhat Cabezas MD Referring Family Medicine 01/08/22 Farhat Cabezas MD 1265 [place] [address] Referring Family Medicine 07/26/24 documented as of this encounter
--- OUTSIDE RECORDS SUMMARY | 2024-08-27 07:46 | XMS_ITS | Encounter Summary ---
Demographics Address [address] [facility] [place] [address] Home Phone Mobile Phone Email Address Preferred Language ENG Marital Status Single Confucianist Affiliation Unknown Race White Ethnic Group Not or Lati no Author Organization [facility] Address [address] [place] [address] Care Team Providers Care Non Categorical Preschool Teacher Name Role Phone Farhat Cabezas MD Primary Care Provider [phone] Farhat Cabezas MD Unavailable [phone] Farhat Cabezas MD Unavailable [phone] Source Comments In the event this information is protected by the Federal Confidentiality of Alcohol and Drug AbusePatient Records regulations: The Federal rules restrict any use of the information to criminally investigate or prosecute any alcohol or drug abuse patient.[facility] Encounter Details Date Type Department Care Team (Late st Contact Info) Description 04/15/2023 Patient Msg Gastroenterology [address] [address] Adilene Morgan APRN.[facility] 9500 [place] [address] 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 Last address used for calculation 543 [...] 9:30 AM EDT [facility] Endocrinology [address] [place] [address] Greg Nina APRN.HOME CARE GIVER [address] [place] [address] diabetes follow up with me in 3 months virtually 09/04/2024 11:30 AM EDT [facility] Gastroenterology [address] [address] Mika Rodgers MD [address] [place] [address] Esophageal stricture [K22.2]Diverticuliti s of colon [K57.32] 11/20/2024 1:00 PM EDT [facility] Endocrinology [address] [place] [address] Valdez Suarez MD [address] [place] [address] [place], [place] 2499835 follow up in 6 months documented as of this encounter Visit Diagnoses Not on filedocumented in this encounter Care Teams Non Categorical Preschool Teacher Relationship Specialty Start Date End Date Farhat Cabezas MD PCP - General Family Medicine 01/13/11 Farhat Cabezas MD Referring Family Medicine 01/08/22 Farhat Cabezas MD 1265 [place] [address] Referring Family Medicine 07/26/24 documented as of this encounter
--- OUTSIDE RECORDS SUMMARY | 2024-08-27 07:46 | XMS_ITS | Encounter Summary ---
Demographics Address [address] [place] [address] Home Phone Mobile Phone Email Address Preferred Language ENG Marital Status Single Pentecostal Affiliation Unknown Race White Ethnic Group Not or Lati no Author Organization [facility] Address [address] [place] [address] Care Team Providers Care Railroad Crossing Protection Maintainer Name Role Phone Farhat Cabezas MD Primary Care Provider [phone] Farhat Cabezas MD Unavailable [phone] Farhat Cabezas MD Unavailable [phone] Source Comments In the event this information is protected by the Federal Confidentiality of Alcohol and Drug AbusePatient Records regulations: The Federal rules restrict any use of the information to criminally investigate or prosecute any alcohol or drug abuse patient.[facility] Encounter Details Date Type Department Care Team (Late st Contact Info) Description 03/24/2023 Patient Msg Endocrinology [address] [place] [address] [place] [address] [place] [address] Resouces Social History Tobacco Use [...] is lower risk 2 12/21/2022 Data from: https://www.neighborhoodatlas.medicine.[facility] [...] AM EDT [facility] Endocrinology [address] [place] [address] Greg Nina APRN.DOG LICENSER [address] [place] [address] diabetes follow up with me in 3 months virtually 09/04/2024 11:30 AM EDT [facility] Gastroenterology [address] [address] Mika Rodgers MD [address] [place] [address] Esophageal stricture [K22.2]Diverticuliti s of colon [K57.32] 11/20/2024 1:00 PM EDT [facility] Endocrinology [address] [place] [address] Valdez Suarez MD [address] [place] [address] [place], [place] 6872335 follow up in 6 months documented as of this encounter Visit Diagnoses Not on filedocumented in this encounter Care Teams Railroad Crossing Protection Maintainer Relationship Specialty Start Date End Date Farhat Cabezas MD PCP - General Family Medicine 01/13/11 Farhat Cabezas MD Referring Family Medicine 01/08/22 Farhat Cabezas MD 1265 [place] [address] Referring Family Medicine 07/26/24 documented as of this encounter
--- OUTSIDE RECORDS SUMMARY | 2024-08-27 07:46 | XMS_ITS | Encounter Summary ---
Demographics Address [address] [address] Home Phone Mobile Phone Email Address Preferred Language ENG Marital Status Single Religion Affiliation Unknown Race White Ethnic Group Not or Lati no Author Organization [facility] Address [address] [place] [address] Care Team Providers Care Acid Changer Name Role Phone Farhat Cabezas MD Primary Care Provider [phone] Farhat Cabezas MD Unavailable [phone] Farhat Cabezas MD Unavailable [phone] Source Comments In the event this information is protected by the Federal Confidentiality of Alcohol and Drug AbusePatient Records regulations: The Federal rules restrict any use of the information to criminally investigate or prosecute any alcohol or drug abuse patient.[facility] Encounter Details Date Type Department Care Team (Late st Contact Info) Description 04/09/2023 Patient Msg Pain Management 5700 [place] [address] [place] [address] [facility] [address] [place] [address] Appointment Request Social History Tobacco [...] 12/21/2022 Data from: https://www.neighborhoodatlas.medicine.[facility]/. Last address used for calculation [address] [...] AM EDT [facility] Endocrinology [address] [place] [address] Greg Nina APRN.DESK ATTENDANT [address] [place] [address] diabetes follow up with me in 3 months virtually 09/04/2024 11:30 AM EDT [facility] Gastroenterology [address] [address] Mika Rodgers MD [address] [address] Esophageal stricture [K22.2]Diverticuliti s of colon [K57.32] 11/20/2024 1:00 PM EDT [facility] Endocrinology [address] [place] [address] Valdez Suarez MD [address] [place] [address] [address] [place], [place] 6908335 follow up in 6 months documented as of this encounter Visit Diagnoses Not on filedocumented in this encounter Care Teams Acid Changer Relationship Specialty Start Date End Date Farhat Cabezas MD PCP - General Family Medicine 01/13/11 Farhat Cabezas MD Referring Family Medicine 01/08/22 Farhat Cabezas MD [address] [place] [address] Referring Family Medicine 07/26/24 documented as of this encounter
--- OUTSIDE RECORDS SUMMARY | 2024-08-27 07:46 | XMS_ITS | Encounter Summary ---
Demographics Address [address] [place] [address] Home Phone Mobile Phone Email Address Preferred Language ENG Marital Status Single Bahai Affiliation Unknown Race White Ethnic Group Not or Lati no Author Organization [facility] Address [address] [place] [address] Care Team Providers Care Powerhouse Mechanic Name Role Phone Farhat Cabezas MD Primary Care Provider [phone] Farhat Cabezas MD Unavailable [phone] Farhat Cabezas MD Unavailable [phone] Source Comments In the event this information is protected by the Federal Confidentiality of Alcohol and Drug AbusePatient Records regulations: The Federal rules restrict any use of the information to criminally investigate or prosecute any alcohol or drug abuse patient.[facility] Encounter Details Date Type Department Care Team (Late st Contact Info) Description 03/30/2023 Patient Msg Endocrinology [address] [place] [address] [place]SW [address] [place] [address] Following up Social History Tobacco [...] lower risk 2 12/21/2022 Data from: https://www.neighborhoodatlas.medicine.[facility]/. Last address used for calculation [address] [...] EDT [facility] Endocrinology [address] [place] [address] Greg Nina APRN.MARINE ELECTRICIAN APPRENTICE [address] [place] [address] diabetes follow up with me in 3 months virtually 09/04/2024 11:30 AM EDT [facility] Gastroenterology [address] [address] Mika Rodgers MD [address] [place] [address] Esophageal stricture [K22.2]Diverticuliti s of colon [K57.32] 11/20/2024 1:00 PM EDT [facility] Endocrinology [address] [place] [address] Valdez Suarez MD [address] [place] [address] [place], [place] [address] follow up in 6 months documented as of this encounter Visit Diagnoses Not on filedocumented in this encounter Care Teams Powerhouse Mechanic Relationship Specialty Start Date End Date Farhat Cabezas MD PCP - General Family Medicine 01/13/11 Farhat Cabezas MD Referring Family Medicine 01/08/22 Farhat Cabezas MD [address] [place] [address] Referring Family Medicine 07/26/24 documented as of this encounter
--- OUTSIDE RECORDS SUMMARY | 2024-08-27 07:46 | XMS_ITS | Encounter Summary ---
Demographics Address [address] [place] [address] Home Phone Mobile Phone Email Address Preferred Language ENG Marital Status Single Baptist Affiliation Unknown Race White Ethnic Group Not or Lati no Author Organization [facility] Address [address] [place] [address] Care Team Providers Care Uniformer Name Role Phone Farhat Cabezas MD Primary Care Provider [phone] Farhat Cabezas MD Unavailable [phone] Farhat Cabezas MD Unavailable [phone] Source Comments In the event this information is protected by the Federal Confidentiality of Alcohol and Drug AbusePatient Records regulations: The Federal rules restrict any use of the information to criminally investigate or prosecute any alcohol or drug abuse patient.[facility] Encounter Details Date Type Department Care Team (Late st Contact Info) Description 04/16/2023 Patient Msg Edwin Preciado [facility] Physical Therapy [address] [place], [place] [phone] [place] [address] [place], [place] [phone] Appointment Request Social History Tobacco Use Types [...] risk 2 12/21/2022 Data from: https://www.neighborhoodatlas.medicine.[facility]/. Last address used for [...] PM Mnoa Dubose (Rn) (Hist), RN * Because of [...] AM EDT [facility] Endocrinology [address] [place] [phone] Greg Nina APRN.HAND CANDY MOLDER [address] [place], [place] [phone] diabetes follow up with me in 3 months virtually 09/04/2024 11:30 AM EDT [facility] Gastroenterology [address] [address] Mika Rodgers MD [address] [place] [address] Esophageal stricture [K22.2]Diverticuliti s of colon [K57.32] 11/20/2024 1:00 PM EDT [facility] Endocrinology [address] [place] [phone] Valdez Suarez MD [address] [place] [address] [address] [place], [place] [phone] follow up in 6 months documented as of this encounter Visit Diagnoses Not on filedocumented in this encounter Care Teams Uniformer Relationship Specialty Start Date End Date Farhat Cabezas MD PCP - General Family Medicine 01/13/11 Farhat Cabezas MD Referring Family Medicine 01/08/22 Farhat Cabezas MD [address] [place] [address] Referring Family Medicine 07/26/24 documented as of this encounter
--- OUTSIDE RECORDS SUMMARY | 2024-08-27 07:46 | XMS_ITS | Clinical Summary ---
Author Organization [facility] Address [address] [place] [address] Care Team Providers Care Multiple Cut Off Saw Operator Name Role Phone Farhat Cabezas MD Primary Care Provider [phone] Farhat Cabezas MD Unavailable [phone] Farhat Cabezas MD Unavailable [phone] Allergies Active Allergy Reactions Criticality Noted [...] current use of insulin (HCC) Use 1 [place] in the nose as needed for low [...] long-term current use of insulin ([facility]) Inject 4.5 mg subcutaneously one time a week. 6 mL 3 Active magnesium glycinate 100 mg magnesium capsuleIndications: Disturbance in sleep behavior Take 2 capsules by mouth daily at bedtime. 60 capsule 11 2025 Active semaglutide (OZEMPIC) 0.25 mg or 0.5 mg (2 mg/3 mL) penIndications:Type 2 diabetes mellitus with hypoglycemia without coma, without long-term current use of insulin ([facility]) For the first 4 weeks, inject 0.25 mg once weekly. After 4 weeks, increase to 0.5 mg weekly and stay at that dose. 1 each Active Blood-Glucose Sensor (DEXCOM G7 SENSOR) deviIndications:Typ e 2 diabetes mellitus with hypoglycemia without coma, without long-term current use of insulin ([facility]) Use to check glucose 4 times [...] (09/24/2017): Added automatically from request for surgery [id number] Vomiting of fecal matter with nausea 09/24/2017 Overview (09/24/2017): Added automatically from request for surgery [id number] Postoperative malabsorption 03/04/2017 Pneumonia 12/06/2016 Nausea and [...] (08/31/2016): Added automatically from request for surgery [id number] Hernia, paraesophageal 08/31/201612/01 Overview (08/31/2016): Added automatically from request for surgery [id number] Mitral and aortic valve regurgitation 09/08/2009 10/23/2022 Overview (10/08/2017): Aortic insufficiency EF 60% DR Zuniga -- judged to be non-surgical and mild Encounters Date Type Department Care Team Description 08/24/2024 Patient Msg HOSPITAL PHARMACY HB-[address] [place] [address] Renetta Moore RPh At your next appointment, choose [facility]. 08/23/2024 Refill General Surgery [address] [place] [address] Rachel Yi MD Refill Request 07/26/2024 Transcribe Orders Referring Physician [address] [place] [phone] Farhat Cabezas MD Esophageal stricture (Primary Dx); Diverticulitis of colon 07/07/2024 Patient Msg Neurology [address] [place] [phone] Thaddeus Diggs MD MRI denial 07/04/2024 Patient Msg Neurology [address] [place] [address] Provider, Ccf from Dr Duenas office 07/04/2024 Telephone Neurology [address] [place] [address] Thaddeus Diggs MD Client Service Professional - Other 07/04/2024 [place] [address] Provider, Ccf Phone call fllow up 07/03/2024 [place] [address] Provider, Ccf MRI Screening Questionnaire Completion Required 06/06/2024 Orders Only Neurology [address] [place] [phone] Thaddeus Diggs MD Paresthesia (Primary Dx); Subjective weakness 05/30/2024 Results Follow-Up Endocrinology [address] [place] [address] Greg Nina, TEACHING DIETITIAN.PRODUCER ARBORIST MANAGER 05/30/2024 Patient Msg Endocrinology [address] [place] [address] Valdez Suarez MD Endocrinology Scheduling 05/29/2024 3:03 PM EDT - 05/29/2024 11:59 PM EDT Hospital Encounter Radiology [address] [facility] [place] [address] Discharge Disposition: Home 05/29/2024 Radiology Radiology [address] [place] [address] Bharti Torres RT(R) Radiology XR 05/29/2024 Get Medical Advice Endocrinology [address] [place] [address] Vinicius Márquez, TEACHING DIETITIAN.PRODUCER ARBORIST MANAGER Sugars from Last 3 Months Immunizations Immunization Administration [...] is lower risk 7 03/07/2024 Data from: https://www.neighborhoodatlas.medicine.[facility].edu/ . Last address used for calculation [address] [...] AM EDT [facility] Endocrinology [address] [place] [address] Greg Nina APRN.PRODUCER ARBORIST MANAGER [address] [place], [place] [phone] diabetes follow up with me in 3 months virtually 09/04/2024 11:30 AM EDT [facility] Gastroenterology [address] [address] Mika Rodgers MD [address] [place], [place] [phone] Esophageal stricture [K22.2]Diverticuliti s of colon [K57.32] 11/20/2024 1:00 PM EDT [facility] Endocrinology [address] [place] [phone] Valdez Suarez MD [address] [place] [address] [address] [place], [place] [phone] follow up in 6 months Health Maintenance [...] history exists Medical Devices Implanted Type Area Client Project Coordinator Device Identifier Shelf Expiration Date Model / Serial / Lot Tube Diane 14fr Silicone Gastrostomy Balloon Bolus Feeding 3-5ml Sterile - [id number] Implanted:Qty: 1 on 11/24/2016 at [facility] Tube N/A: Abdomen [employer] 09/09/2019 [id number] / / [id number] Description:18 barbadian DIANE ga strostomy feeding tube - Halyard [...] AM EDT IMPRESSION: 1. Fifth metatarsal fracture German Professor: SILVIA Transcribe Date/Time: May 30 2024 10:01A [...] swelling at the forefoot Procedure Note Provider, [facility] [place] - 05/30/2024 * * *Final Report* * [...] forefoot IMPRESSION IMPRESSION: 1. Fifth metatarsal fracture German Professor: SILVIA Transcribe Date/Time: May 30 2024 10:01A Dictated by : JONATHAN WADSWORTH MD This examination was interpreted and the report reviewed and electronically signed by: JONATHAN WADSWORTH MD on May 30 2024 10:04AM EST Ccf Provider RAD-PAMA Final Result * ALBUMIN/CREATININE RATIO, URINE (05/29/2024 3:00 PM EDT) Creatinine, Ur Random (UCRR) 208.7 20.0 - 300.0 mg/dL 05/30/2024 1:19 PM EDT [facility] Albumin, Urine Random 21.1 mg/L 05/30/2024 1:19 PM EDT [facility] Albumin/Creat Ratio 10 <30 mg/g 05/30/2024 1:19 PM EDT [facility] Comment: Adult Male and Female Nephrotic [...] EDT 05/29/2024 3:00 PM EDT Greg Nina TEACHING DIETITIAN.PRODUCER ARBORIST MANAGER LABORATORY Final R esult [facility] [address] [place] [address], * (ABNORMAL) VITAMIN D 25 HYDROXY (05/29/2024 2:55 PM EDT) Vitamin D 25 Hydroxy 25.8(L) 31.0 - 80.0 ng/mL 05/30/2024 12:38 PM EDT [facility] Comment: Classification of 25 [place] Vitamin D status: Deficiency/Insufficiency: < or = 30 ng/ml. Sufficiency/Optimal Levels: 31-80 ng/mL Toxicity: > 100 ng/mL. Test performed by chemiluminescent immunoassay. Blood BLOOD SPECIMEN / Unknown Venipuncture / Unknown 05/29/2024 2:55 PM EDT 05/29/2024 2:55 PM EDT Narrative [facility] - 05/30/2024 12:38 PM EDT The reference range interval was based on an analysis of samples from healthy adults and may not pertain to children from 0-18 years old. us Valdez Suarez MD LABORATORY Final Resu lt Performing Organization Address [facility]/ZIP Co de Phone Number [facility] [address] [address], [place] * THYROID STIMULATING HORMONE (05/29/2024 2:55 PM EDT) TSH 1.070 0.270 - 4.200 mIU/L 05/30/2024 4:48 AM EDT [facility] Comment: If the patient is , TSH reference range varies by gestational period: First Trimester (weeks 9-12): 0.180-2.990 mIU/L Second Trimester: 0.110-3.980 mIU/L Third Trimester: 0.480-4.710 mIU/L Rohit Mares et al. A Practical Approach for the Verifications and Determination of Site- and Trimester-Specific Reference Intervals for Thyroid Function tests in . Thyroid, 2019:29:3:412-420. Hany Torre, et al. 2017 Guidelines of the [place] Thyroid Association for the Diagnosis and Management of Thyroid Disease during and the . Thyroid, 2017:27:3:315-389. Blood BLOOD SPECIMEN / Unknown Venipuncture / Unknown 05/29/2024 2:55 PM EDT 05/29/2024 2:55 PM EDT us Valdez Suarez MD LABORATORY Final Resu lt Performing Organization Address [facility]/ZIP Co de Phone Number [facility] [address] [address], [place] * LIPID PANEL, FASTING (05/29/2024 2:55 PM EDT) Cholesterol, Total 132 <200 mg/dL 05/30/2024 4:41 AM EDT [facility] Comment: <200 mg/dL, Desirable 200-239 mg/dL, Borderline high >239 mg/dL, High Triglyceride 139 <150 mg/dL 05/30/2024 4:41 AM [facility] Comment: <150 mg/dL, Normal 150-199 mg/dL, Borderline high 200-499 mg/dL, High >499 mg/dL, Very high HDL Cholesterol 41 >39 mg/dL 4:41 AM [facility] Comment: 40-59 mg/dL, Acceptable >59 mg/dL, High: Negative risk factor for coronary heart disease <40 mg/dL, Low: Positive risk factor for coronary heart disease Non HDL Cholesterol 91 <130 mg/dL 05/30/2024 4:41 AM [facility] Comment: <130 mg/dL, Optimal 130-159 mg/dL, Near optimal/above optimal 160-189 mg/dL, Borderline high 190-219 mg/dL, High >219 mg/dL, Very high Secondary prevention optimal non HDL Cholesterol levels are recommended to be <100 mg/dL Fasting Time 12 hrs 05/30/2024 4:41 AM [facility] LAB[facility] VLDL Cholesterol 28 <30 mg/dL 05/31/19 4:41 AM [facility] TC:HDL Ratio 3.22 <5.10 05/30/2024 4:41 AM [facility] LDL Cholesterol, Calculated 63 <100 mg/dL 05/30/2024 4:41 AM [facility] Comment: <100 mg/dL, Optimal 100-129 mg/dL, Near optimal/above optimal 130-159 mg/dL, Borderline high 160-189 mg/dL, High >189 mg/dL, Very high Secondary prevention optimal LDL Cholesterol levels are recommended to be < 70 mg/dL LDL:HDL Ratio 1.54 <2.54 05/30/2024 4:41 AM [facility] Comment: Reference: 1. National Cholesterol Education Program ATP III Guideline At-A-Glance Quick Desk Reference: National Heart, Lung, and Blood [place]. National Institutes of Health. 2001: NIH Publication No. 01-3305. 2. An International Atherosclerosis Society position paper: global recommendations for the management of dyslipidemia: executive summary, Atherosclerosis. 2014: 232(2):410-413. Blood BLOOD SPECIMEN / Unknown Venipuncture / Unknown 05/29/2024 2:55 PM EDT 05/29/2024 2:55 PM EDT Greg Nina APRN.PRODUCER ARBORIST MANAGER LABORATORY Final R esult Performing Organization Address [facility]/ZIP Co de Phone Number [facility] [address] [address], [facility] [address] [place] [address], [place] * (ABNORMAL) HEMOGLOBIN A1C (05/29/2024 2:55 PM EDT) Hemoglobin A1C 6.5(H) 4.3 - 5.6 % 05/30/2024 6:18 AM EDT [facility] Comment:[place] Diabetes As sociation guidelines indicate that patients with HgbA1c in the range 5.7-6.4% are at increased risk for development of diabetes, and intervention by lifestyle modification may be beneficial. HgbA1c greater or equal to 6.5% is considered diagnostic of diabetes. Estimated Average Glucose 140 mg/dL 05/30/2024 6:18 AM EDT [facility] Comment:eAG: (Estimated aver age glucose) is a calculated value from HgbA1c and is sales representative of the average blood glucose level in the last 2-3 month period. Blood BLOOD SPECIMEN / Unknown Venipuncture / Unknown 05/29/2024 2:55 PM EDT 05/29/2024 2:55 PM EDT Greg Nina APRN.PRODUCER ARBORIST MANAGER LABORATORY Final R esult [facility] [address] [address], [place] * (ABNORMAL) COMPREHENSIVE METABOLIC PANEL (05/29/2024 2:55 PM EDT) Protein, Total 6.4 6.3 - 8.0 g/dL 05/30/2024 4:41 AM [facility] Albumin 3.6(L) 3.9 - 4.9 g/dL 05/30/2024 4:41 AM [facility] Calcium, Total 8.4(L) 8.5 - 10.2 mg/dL 05/30/2024 4:41 AM [facility] Bilirubin, Total 0.2 0.2 - 1.3 mg/dL 05/30/2024 4:41 AM [facility] Alkaline Phosphatase 248(H) 34 - 123 U/L 05/30/2024 4:41 AM [facility] AST 38(H) 13 - 35 U/L 05/30/2024 4:41 AM [facility] ALT 43(H) 7 - 38 U/L 05/30/2024 4:41 AM [facility] Glucose 280(H) 74 - 99 mg/dL 05/30/2024 4:41 AM [facility] Comment: The [place] Diabetes Association (ADA) provides guidance for cutoff [...] Standards of Medical Care in Diabetes 2016, [place] Diabetes Association. Diabetes Care. 2016.39(Suppl 1). BUN 6(L) 7 - 21 mg/dL 05/30/2024 4:41 AM [facility] Creatinine 0.92 0.58 - 0.96 mg/dL 05/30/2024 4:41 AM [facility] Sodium 138 136 - 144 mmol/L 05/30/2024 4:41 AM [facility] Potassium 4.1 3.7 - 5.1 mmol/L 05/30/2024 4:41 AM [facility] Chloride 107 98 - 107 mmol/L 05/30/2024 4:41 AM EDT [facility] CO2 19(L) 22 - 30 mmol/L 05/30/2024 4:41 AM EDT [facility] Anion Gap 12 8 - 15 mmol/L 05/30/2024 4:41 AM EDT [facility] Estimated Glomerular Filtration Rate 76 >=60 mL/min/1.7 3m 05/30/2024 4:41 AM EDT [facility] Comment:Estimated Glomerular Filtration Rate (eGFR) is [...] 05/29/2024 2:55 PM EDT us Greg Nina APRN.[facility] LABORATORY Final R esult [facility] [address] [address], [place] * JUS SCREENING W SURINDER (10/27/2022 10:46 AM EDT) Anatomical Region Laterality Modality Breast Other 10/27/2022 10:4 6 AM EDT Impressions 10/28/2022 7:43 AM EDT IMPRESSION: NEGATIVE There is no mammographic evidence of malignancy. A 1 year screening mammogram is recommended. The exam was reviewed by a staff physician. karen Canada M.D., D.O./caron:10/27/2022 11:12:38 Manager Budget(s): RT Kristin(R)(M), [facility] letter sent: Normal over 40 Mammogram BI-RADS: [...] Health, Family Medicine, and Medical/Surgical Oncology, the [facility] has carefully reviewed the data and [...] their providers when to stop screening mammograms. German Professor: Caron Transcribe Date/Time: Oct 27 2022 10:26A Dictated by: JING HALL, DO This examination was interpreted and the report reviewed and electronically signed by: ANNE BOB MD on Oct 27 2022 11:12AM EST Narrative 10/28/2022 7:43 AM EDT * * *Final Report* * * DATE OF EXAM: Oct 27 2022 10:46AM [id number] [id number] - [facility] SCREENING W SURINDER / PROCEDURE REASON: Encounter for screening mammogram for malignant neoplasm of breast * * * * Physician Interpretation * * * * RESULT: #[id number] - JUS SCREENING W SURINDER BILATERAL FIRST [...] seen in either breast. Procedure Note Provider, [facility] [place] - 10/28/2022 * * *Final Report* * * DATE OF EXAM: Oct 27 2022 10:46AM LNW 0582 - JUS SCREENING W SURINDER / PROCEDURE REASON: Encounter for screening mammogram for malignant neoplasm of breast * * * * Physician Interpretation * * * * RESULT: #[id number] - JUS SCREENING W SURINDER BILATERAL FIRST [...] was reviewed by a staff physician. Anne pack,karen/penrad:10/27/2022 11:12:38 Manager Budget(s): RT Kristin(Pierce)(M), [facility] letter sent: Normal over 40 Mammogram BI-RADS: [...] Health, Family Medicine, and Medical/Surgical Oncology, the [facility] has carefully reviewed the data and [...] their providers when to stop screening mammograms. German Professor: Caron Transcribe Date/Time: Oct 27 2022 10:26A Dictated by: JING HALL DO This examination was interpreted and the report reviewed and electronically signed by: ANNE BOB MD on Oct 27 2022 11:12AM EST us Eleanor Chanel DO JUS-PAMA Final Res ult * PAP TEST (06/11/2022 12:41 PM EDT) Case Report Gynecologic Cytology Report Case: [id number] Authorizing Provider: Eleanor Chanel DO Collected: 06/11/2022 12:41 PM Ordering Location: CB/Gynecology Received: 06/12/2022 05:13 AM First Screen: Chiara Salguero, CT, ASCP Rescreen: LEO Ng, ASCP Specimen: Pap Test, ThinPrep, Cervix 06/18/2022 12:27 PM EDT [facility] FINAL DIAGNOSIS A - Cervix Satisfactory for interpretation Negative for Intraepithelial lesion or malignancy. 06/18/2022 12:27 PM EDT [facility] at 1227 EDT LMP 04/06/2022 06/18/2022 12:27 PM EDT [facility] Pap Disclaimer The Pap Smear is a screening test for cervical cancer. False negative results occur with all screening tests, emphasizing the need for rescreening at recommended intervals, and clinical correlation. 06/18/2022 12:27 PM EDT [facility] PAP Roll Scale Worker Comment This specimen has been analyzed by the ThinPrep Imaging System, an automated imaging and review system, which assists the laboratory in evaluating cells on ThinPrep Pap tests. Following automated imaging, selected rojas from every slide are reviewed by a spot billing clerk. 06/18/2022 12:27 PM EDT [facility] Performing Lab Technical component, spot billing clerk screening performed at [facility], [facility], [facility] [address] CLIA# [id number] Diagnostic interpretation performed at [facility], [address] [place], [place] [id number] IA# [id number] Adult Specialist: Moshe Craft M.D. 06/18/2022 12:27 PM EDT [facility] Clinical History Routine Exam 2022 12:27 PM EDT [facility] Comment:h/o CIN1 HPV Reflex Auto HPV 06/18/2022 12:27 PM EDT [facility] Cytology Interpretation Negative for Intraepithelial lesion or malignancy. 06/18/2022 12:27 PM EDT [facility] at 1227 EDT Sterile Fluid/Body Fluid CERVICAL / Unknown Non Blood / Unknown 06/11/2022 12:41 PM EDT 06/12/2022 5:13 AM EDT us Eleanor Chanel DO CYTOLOGY Final Res ult [facility] [address] [place] [address], * HCV QUANT RNA BY PCR (12/27/2020 12:49 PM EST) Pathologist [facility] HCV RNA by PCR HCV RNA not detected by PCR. IU/mL 12/27/2020 8:00 PM EST [facility] [employer] Comment: Reference Range: Negative for HCV RNA The Linear Range of this assay is 15 IU/mL to 100,000,000 IU/mL. Blood OTHER / Unknown 12/27/2020 1 2:49 PM EST 12/27/2020 12:51 PM EST us Lorenzo Perry DO LABORATORY Final Resul t Performing Organization Address City/[facility]/ZIP Co de Phone Number [facility] [address] [place] [address] [address] * COLONOSCOPY (10/13/2017 8:01 AM EDT) Top Lift And Automatic Window Repairer [facility] Gastrointestinal Endoscopy Patient Name: Esme Reyes Procedure Date: 10/13/2017 8:01 AM Account Number: Date of : 1975 Admit Type: Outpatient Age: 42 Room: Proc A Gender: Female Note Status: Finalized Attending [...] Pardo in one week for pathology results [phone] if you have not received letter, call [...] PhD [facility] IONAL Final Result [facility] [address] [place] [address] [facility] from Last 3 Months or Most Recently Relevant to Health Maintenance Insurance * Guarantor: Esme Reyes Account Type Relation to Patient Date of Phone Billing Address Personal/Family Self 1975 [address] [place] [address] [place] * Guarantor: Esme Reyes Account Type Relation to Patient Date of Phone Billing Address Vision Self 1975 [address] [place] [address] [place] [address] * Guarantor: ReyesArmanina Account Type Relation to Patient Date of Phone Billing Address Self Pay Self 1975 [address] [place] [place] [address] Advance Directives Documents on File Type Date Recorded Patient Checkering Machine Adjuster Expl anation Advance Directive(s) 11/05/2016 3:51 PM Care Teams Multiple Cut Off Saw Operator Relationship Specialty Start Date End Date Farhat Cabezas MD PCP - General Family Medicine 01/13/11 Farhat Cabezas MD Referring Family Medicine 01/08/22 Farhat Cabezas MD [address] [place] [address] Referring Family Medicine 07/26/24
--- OUTSIDE RECORDS SUMMARY | 2024-08-27 07:46 | XMS_ITS | Encounter Summary ---
Demographics Address [address] [facility] [place] [address] Home Phone Mobile Phone Email Address Preferred Language ENG Marital Status Single Buddhist Affiliation Unknown Race White Ethnic Group Not or Lati no Author Organization [facility] Address [facility] [place] [address] Care Team Providers Care Manager Technical Name Role Phone Farhat Cabezas MD Primary Care Provider [phone] Farhat Cabezas MD Unavailable [phone] Farhat Cabezas MD Unavailable [phone] Source Comments In the event this information is protected by the Federal Confidentiality of Alcohol and Drug AbusePatient Records regulations: The Federal rules restrict any use of the information to criminally investigate or prosecute any alcohol or drug abuse patient.[facility] Encounter Details Date Type Department Care Team (Late st Contact Info) Description 12/01/2022 Patient Msg Neurology 5334 [place] [address] Thaddeus Diggs MD 0792 [place] [address] Follow up Social History Tobacco [...] is lower risk 4 06/11/2022 Data from: https://www.neighborhoodatlas.medicine.[facility]/. Last address used for calculation [address] 06/11/2022 Comments No Sex and Gender [...] 08/30/2024 9:30 AM EDT [facility] [address] [place] [address] Greg Nina, MARITZA.BUSINESS MANAGEMENT SPECIALIST [address] [place] [address] diabetes follow up with me in 3 months virtually 09/04/2024 11:30 AM EDT [facility] Gastroenterology [address] [address] Mika Rodgers MD [address]00 [place], [place] [address] Esophageal stricture [K22.2]Diverticuliti s of colon [K57.32] 11/20/2024 1:00 PM EDT [facility] Endocrinology [address] [place] [address] Valdez Suarez MD [address] [place] [address] [address] [place], [place] [address] follow up in 6 months documented as of this encounter Visit Diagnoses Not on filedocumented in this encounter Care Teams Manager Technical Relationship Specialty Start Date End Date Farhat Cabezas MD PCP - General Family Medicine 01/13/11 Farhat Cabezas MD Referring Family Medicine 01/08/22 [place] [address] [place] [address] Referring Family Medicine 07/26/24 documented as of this encounter
--- OUTSIDE RECORDS SUMMARY | 2024-08-27 07:46 | XMS_ITS | Encounter Summary ---
Demographics Address [address] [facility] [place] [address] Home Phone Mobile Phone Email Address Preferred Language ENG Marital Status Single Mu-Ism Affiliation Unknown Race White Ethnic Group Not or Lati no Author Organization [facility] Address [address] [place] [address] Care Team Providers Care Pointer Helper Name Role Phone Farhat Cabezas MD Primary Care Provider [phone] Farhat Cabezas MD Unavailable [phone] Farhat Cabezas MD Unavailable [phone] Source Comments In the event this information is protected by the Federal Confidentiality of Alcohol and Drug AbusePatient Records regulations: The Federal rules restrict any use of the information to criminally investigate or prosecute any alcohol or drug abuse patient.[facility] Encounter Details Date Type Department Care Team (Late st Contact Info) Description 04/09/2023 Patient Msg Endocrinology [address] [place] [address] Vinicius Márquez, OUTREACH LIAISON.CLERK SPECIALIST [address] [place] [address] Appointment Request Social History Tobacco Use Types [...] lower risk 2 12/21/2022 Data from: https://www.neighborhoodatlas.medicine.[facility]/. Last address used for calculation 543 [...] 9:30 AM EDT [facility] Endocrinology [address] [place] [address] Greg Nina APRN.CLERK SPECIALIST [address] [place] [address] diabetes follow up with me in 3 months virtually 09/04/2024 11:30 AM EDT [facility] Gastroenterology [address] [address] Mika Rodgers MD [address] [place] [address] Esophageal stricture [K22.2]Diverticuliti s of colon [K57.32] 11/20/2024 1:00 PM EDT [facility] Endocrinology [address] [place] [address] Valdez Suarez MD [address] [place] [address] [address] [place], [place] 1544335 follow up in 6 months documented as of this encounter Visit Diagnoses Not on filedocumented in this encounter Care Teams Pointer Helper Relationship Specialty Start Date End Date Farhat Cabezas MD PCP - General Family Medicine 01/13/11 Farhat Cabezas MD Referring Family Medicine 01/08/22 Farhat Cabezas MD 1265 [place] [address] Referring Family Medicine 07/26/24 documented as of this encounter
--- OUTSIDE RECORDS SUMMARY | 2024-08-27 07:46 | XMS_ITS | Encounter Summary ---
Demographics Address [address] [facility] [address] Home Phone Mobile Phone Email Address Preferred Language ENG Marital Status Single Druze Affiliation Unknown Race White Ethnic Group Not or Lati no Author Organization [facility] Address [facility] [place] [address] Care Team Providers Care Carpenter Helper Name Role Phone Farhat Cabezas MD Primary Care Provider [phone] Farhat Cabezas MD Unavailable [phone] Farhat Cabezas MD Unavailable [phone] Source Comments In the event this information is protected by the Federal Confidentiality of Alcohol and Drug AbusePatient Records regulations: The Federal rules restrict any use of the information to criminally investigate or prosecute any alcohol or drug abuse patient.[facility] Encounter Details Date Type Department Care Team (Late st Contact Info) Description 11/27/2022 Patient Msg Neurology 5334 [place] [address] Thaddeus Diggs MD 9960 [place] [address] MRI Social History Tobacco Use [...] is lower risk 4 06/11/2022 Data from: https://www.neighborhoodatlas.medicine.[facility]/. Last address used for calculation [address] 06/11/2022 Comments No Sex and Gender [...] Contact Info) Description 08/30/2024 9:30 AM EDT [facility] Endocrinology [address] [place] [address] Greg Nina APRN.BOILER OPERATOR [address] [place] [address] diabetes follow up with me in 3 months virtually 09/04/2024 11:30 AM EDT [facility] Gastroenterology [address] [address] Mika Rodgers MD 9500 [place], [place] [address] Esophageal stricture [K22.2]Diverticuliti s of colon [K57.32] 11/20/2024 1:00 PM EDT [facility] Endocrinology [address] [place] [address] Valdez Suarez MD [address] [place] [address] [address] [place], [place] [address] follow up in 6 months documented as of this encounter Visit Diagnoses Not on filedocumented in this encounter Care Teams Carpenter Helper Relationship Specialty Start Date End Date Farhat Cabezas MD PCP - General Family Medicine 01/13/11 Farhat Cabezas MD Referring Family Medicine 01/08/22 Farhat Cabezas MD 1265 [place] [address] Referring Family Medicine 07/26/24 documented as of this encounter
--- OUTSIDE RECORDS SUMMARY | 2024-08-27 07:46 | XMS_ITS | Encounter Summary ---
Author Organization [facility] Address [address] [place] [address] Care Team Providers Care Telecasting Engineer Name Role Phone Farhat Cabezas MD Primary Care Provider [phone] Farhat Cabezas MD Unavailable [phone] Farhat Cabezas MD Unavailable [phone] Source Comments In the event this information is protected by the Federal Confidentiality of Alcohol and Drug AbusePatient Records regulations: The Federal rules restrict any use of the information to criminally investigate or prosecute any alcohol or drug abuse patient.[facility] Encounter Details Date Type Department Care Team (Late st Contact Info) Description 12/24/2016 Patient Msg Medical Records [address] [place] [address] Provider, Ccf RE:Folllow up from psychology group [...] Description 08/30/2024 9:30 AM EDT [facility] [address] [place] [address] Greg Nina APRN.GRINDING AND SPRAYING SUPERVISOR [address] [place] [address] diabetes follow up with me in 3 months virtually 09/04/2024 11:30 AM EDT [facility] [address] [address] Mika Rodgers MD 1250 [place] [address] Esophageal stricture [K22.2]Diverticuliti s of colon [K57.32] 11/20/2024 1:00 PM EDT [facility] [address] [place] [address] Valdez Suarez MD [address] [place] [address] [address] [place], [place] 2991335 follow up in 6 months documented as of this encounter Visit Diagnoses Not on filedocumented in this encounter Care Teams Telecasting Engineer Relationship Specialty Start Date End Date Farhat Cabezas MD PCP - General Family Medicine 01/13/11 Farhat Cabezas MD Referring Family Medicine 01/08/22 Farhat Cabezas MD [facility]5 [place] [address] Referring Family Medicine 07/26/24 documented as of this encounter
--- OUTSIDE RECORDS SUMMARY | 2024-08-27 07:46 | XMS_ITS | Encounter Summary ---
Demographics Address [address] [place] [address] Home Phone Mobile Phone Email Address Preferred Language ENG Marital Status Single Uatsdin Affiliation Unknown Race White Ethnic Group Not or Lati no Author Organization [facility] Address [address] [place] [address] Care Team Providers Care Puff Iron Operator Name Role Phone Farhat Cabezas MD Primary Care Provider [phone] Farhat Cabezas MD Unavailable [phone] Farhat Cabezas MD Unavailable [phone] Source Comments In the event this information is protected by the Federal Confidentiality of Alcohol and Drug AbusePatient Records regulations: The Federal rules restrict any use of the information to criminally investigate or prosecute any alcohol or drug abuse patient.[facility] Encounter Details Date Type Department Care Team (Late st Contact Info) Description 04/05/2023 Patient Msg Endocrinology 9300 [place] [address] Provider, Ccf endocrine dietitian visit [...] risk 2 12/21/2022 Data from: https://www.neighborhoodatlas.[facility]/. Last address used for calculation [...] 9:30 AM EDT [facility] Endocrinology [address] [place] [address] Greg Nina APRN.GROCERY BUYER [address] [place], [place] [address] diabetes follow up with me in 3 months virtually 09/04/2024 11:30 AM EDT [facility] [address] [address] Mika Rodgers MD [address] [facility] [place] [address] Esophageal stricture [K22.2]Diverticuliti s of colon [K57.32] 11/20/2024 1:00 PM EDT [facility] Endocrinology [address] [place] [address] Valdez Suarez MD [address] [facility] [address] [place], [place] [address] follow up in 6 months documented as of this encounter Visit Diagnoses Not on filedocumented in this encounter Care Teams Puff Iron Operator Relationship Specialty Start Date End Date Farhat Cabezas MD PCP - General Family Medicine 01/13/11 Farhat Cabezas MD Referring Family Medicine 01/08/22 Farhat Cabezas MD 1265 [place] [address] Referring Family Medicine 07/26/24 documented as of this encounter
--- OUTSIDE RECORDS SUMMARY | 2024-08-27 07:46 | XMS_ITS | Encounter Summary ---
Demographics Address [address] [place] [address] Home Phone Mobile Phone Email Address Preferred Language ENG Marital Status Single Voodoo Affiliation Unknown Race White Ethnic Group Not or Lati no Author Organization [facility] Address [address] [place] [address] Care Team Providers Care Manager Membership Name Role Phone Farhat Cabezas MD Primary Care Provider [phone] Farhat Cabezas MD Unavailable [phone] Farhat Cabezas MD Unavailable [phone] Source Comments In the event this [...] Msg CB/Gynecology [address] [place] [address] Provider, Ccf Reschedule appt. Social History [...] is lower risk 4 06/11/2022 Data from: https://www.neighborhoodatlas.[facility]/. Last address used for calculation [address] [facility] 06/11/2022 Comments No Sex and [...] EDT [facility] Endocrinology [address] [place] [address] Greg Nina APRN.VIDEOTAPE EDITOR [address] [place] [address] diabetes follow up with me in 3 months virtually 09/04/2024 11:30 AM EDT [facility] Gastroenterology [address] [address] Mika Rodgers MD [address] [place] [address] Esophageal stricture [K22.2]Diverticuliti s of colon [K57.32] 11/20/2024 1:00 PM EDT [facility] Endocrinology [address] [place] [address] Valdez Suarez MD [address] [place] [address] [place], [place] 16[address]035 follow up in 6 months documented as of this encounter Visit Diagnoses Not on filedocumented in this encounter Care Teams Manager Membership Relationship Specialty Start Date End Date Farhat Cabezas MD PCP - General Family Medicine 01/13/11 Farhat Cabezas MD Referring Family Medicine 01/08/22 Farhat Cabezas MD [facility]5 [place] [address] Referring Family Medicine 07/26/24 documented as of this encounter
--- OUTSIDE RECORDS SUMMARY | 2024-08-27 07:46 | XMS_ITS | Encounter Summary ---
Demographics Address [address] [place] [place] [address] Home Phone Mobile Phone Email Address Preferred Language ENG Marital Status Single Congregation Affiliation Unknown Race White Ethnic Group Not or Lati no Author Organization [facility] Address [address] [place] [address] Care Team Providers Care Cisco Administrator Name Role Phone Farhat Cabezas MD Primary Care Provider [phone] Farhat Cabezas MD Unavailable [phone] Farhat Cabezas MD Unavailable [phone] Source Comments In the event this information is protected by the Federal Confidentiality of Alcohol and Drug AbusePatient Records regulations: The Federal rules restrict any use of the information to criminally investigate or prosecute any alcohol or drug abuse patient.[facility] Encounter Details Date Type Department Care Team (Late st Contact Info) Description 03/26/2023 Patient Msg Endocrinology [address] [place] [address] [place] [address] [place] [address] Draft Narrative Social History Tobacco [...] is lower risk 2 12/21/2022 Data from: https://www.neighborhoodatlas.medicine.[facility]/. Last address used for calculation [...] 9:30 AM EDT [facility] Endocrinology [address] [place] [address] Greg Nina APRN.RN TELEPHONIC [address] [place] [address] diabetes follow up with me in 3 months virtually 09/04/2024 11:30 AM EDT [facility] Gastroenterology [address] [address] Mika Rodgers MD [address] [place] [address] Esophageal stricture [K22.2]Diverticuliti s of colon [K57.32] 11/20/2024 1:00 PM EDT [facility] Endocrinology [address] [place] [address] Valdez Suarez MD [address] [place] [address] [address] [place], [place] [address]106[address] follow up in 6 months documented as of this encounter Visit Diagnoses Not on filedocumented in this encounter Care Teams Cisco Administrator Relationship Specialty Start Date End Date Farhat Cabezas MD PCP - General Family Medicine 01/13/11 Farhat Cabezas MD Referring Family Medicine 01/08/22 Farhat Cabezas MD [address] [place] [address] Referring Family Medicine 07/26/24 documented as of this encounter
--- OUTSIDE RECORDS SUMMARY | 2024-08-27 07:46 | XMS_ITS | Encounter Summary ---
Demographics Address [address] [place] [address] Home Phone Mobile Phone Email Address Preferred Language ENG Marital Status Single Denominational Affiliation Unknown Race White Ethnic Group Not or Lati no Author Organization [facility] Address [address] [place] [address] Care Team Providers Care Senior Consumer Insights Consultant Name Role Phone Farhat Cabezas MD Primary Care Provider [phone] Farhat Cabezas MD Unavailable [phone] Farhat Cabezas MD Unavailable [phone] Source Comments In the event this information is protected by the Federal Confidentiality of Alcohol and Drug AbusePatient Records regulations: The Federal rules restrict any use of the information to criminally investigate or prosecute any alcohol or drug abuse patient.[facility] Encounter Details Date Type Department Care Team (Late st Contact Info) Description 02/05/2023 Patient Msg Endocrinology [address] [place] [address] [place] [address] [place], [place] [phone] Resources Social History Tobacco Use Types Packs/Day [...] risk 2 12/21/2022 Data from: https://www.neighborhoodatlas.medicine.[facility]/. Last address used for calculation [address] [...] Contact Info) Description 08/30/2024 9:30 AM EDT [facility] Endocrinology [address] [place] [address] Greg Nina APRN.INFORMATION TECHNOLOGY DIRECTOR [address] [place], [place] 9[address] diabetes follow up with me in 3 months virtually 09/04/2024 11:30 AM EDT [facility] Gastroenterology [address] [address] Mika Rodgers MD [address] [place] [address] Esophageal stricture [K22.2]Diverticuliti s of colon [K57.32] 11/20/2024 1:00 PM EDT [facility] Endocrinology [address] [place] [address] Valdez Suarez MD [address] [place] [address] [place], [place] 8083735 follow up in 6 months documented as of this encounter Visit Diagnoses Not on filedocumented in this encounter Care Teams Senior Consumer Insights Consultant Relationship Specialty Start Date End Date Farhat Cabezas MD PCP - General Family Medicine 01/13/11 Farhat Cabezas MD Referring Family Medicine 01/08/22 Frahat Cabezas MD [facility]5 [place] [address] Referring Family Medicine 07/26/24 documented as of this encounter
--- OUTSIDE RECORDS SUMMARY | 2024-08-27 07:46 | XMS_ITS | Encounter Summary ---
Demographics Address [address] [place] [address] Home Phone Mobile Phone Email Address faisal .[employer] Preferred Language ENG Marital Status Single Congregational Affiliation Unknown Race White Ethnic Group Not or Lati no Author Organization [facility] Address [address] [place] [address] Care Team Providers Care Chairman And Ceo Name Role Phone Farhat Cabezas MD Primary Care Provider [phone] Farhat Cabezas MD Unavailable [phone] Farhat Cabezas MD Unavailable [phone] Source Comments In the event this information is protected by the Federal Confidentiality of Alcohol and Drug AbusePatient Records regulations: The Federal rules restrict any use of the information to criminally investigate or prosecute any alcohol or drug abuse patient.[facility] Encounter Details Date Type Department Care Team (Late st Contact Info) Description 04/19/2023 Patient Msg Orthopaedics [address] [place], [place] [phone] Provider, Ccpiero Saba Appointment Social History Tobacco [...] is lower risk 2 12/21/2022 Data from: https://www.neighborhoodatlas.[facility]/. Last address used for calculation [...] 08/30/2024 9:30 AM EDT [facility] Endocrinology [address] [place] [address] Greg Nina APRN.CIRCULATION ASSISTANT [address] [place], [place] 9[address]39 diabetes follow up with me in 3 months virtually 09/04/2024 11:30 AM EDT [facility] Gastroenterology [address] [address] Mika Rodgers MD [address] [place] [address] Esophageal stricture [K22.2]Diverticuliti s of colon [K57.32] 11/20/2024 1:00 PM EDT [facility] Endocrinology [address] [place] [address] Valdez Suarez MD [address] [facility] [address] [place], [place] 9[address]35 follow up in 6 months documented as of this encounter Visit Diagnoses Not on filedocumented in this encounter Care Teams Chairman And Ceo Relationship Specialty Start Date End Date Farhat Cabezas MD PCP - General Family Medicine 01/13/11 Farhat Cabezas MD Referring Family Medicine 01/08/22 Farhat Cabezas MD 1265 [place] [address] Referring Family Medicine 07/26/24 documented as of this encounter
--- OUTSIDE RECORDS SUMMARY | 2024-08-27 07:46 | XMS_ITS | Encounter Summary ---
Demographics Address [address] [place] [place] [address] Home Phone Mobile Phone Email Address Preferred Language ENG Marital Status Single Yarsani Affiliation Unknown Race White Ethnic Group Not or Lati no Author Organization [facility] Address [address] [place] [address] Care Team Providers Care Cap Maker Name Role Phone Farhat Cabezas MD Primary Care Provider [phone] Farhat Cabezas MD Unavailable [phone] Farhat Cabezas MD Unavailable [phone] Source Comments In the event this information is protected by the Federal Confidentiality of Alcohol and Drug AbusePatient Records regulations: The Federal rules restrict any use of the information to criminally investigate or prosecute any alcohol or drug abuse patient.[facility] Encounter Details Date Type Department Care Team (Late st Contact Info) Description 04/26/2023 Patient Msg Endocrinology [address] [place] [address] [place] [address] [place] [address] Board Complaint Filed Social History [...] is lower risk 2 12/21/2022 Data from: https://www.neighborhoodatlas.medicine.[facility]/. Last address used for [...] EDT [facility] Endocrinology [address] [place] [address] Greg Nina APRN.DIE BARBER [address] [place] [address] diabetes follow up with me in 3 months virtually 09/04/2024 11:30 AM EDT [facility] Gastroenterology [address] [address] Mika Rodgers MD [address] [place] [address] Esophageal stricture [K22.2]Diverticuliti s of colon [K57.32] 11/20/2024 1:00 PM EDT [facility] Endocrinology [address] [place] [address] Valdez Suarez MD [address] [place] [address] [address] [place], [place] 8226835 follow up in 6 months documented as of this encounter Visit Diagnoses Not on filedocumented in this encounter Care Teams Cap Maker Relationship Specialty Start Date End Date Farhat Cabezas MD PCP - General Family Medicine 01/13/11 Farhat Cabezas MD Referring Family Medicine 01/08/22 Farhat Cabezas MD 1265 [place] [address] Referring Family Medicine 07/26/24 documented as of this encounter
--- OUTSIDE RECORDS SUMMARY | 2024-08-27 07:46 | XMS_ITS | Encounter Summary ---
Demographics Address [address] [place] [address] Home Phone Mobile Phone Email Address Preferred Language ENG Marital Status Single Mosque Affiliation Unknown Race White Ethnic Group Not or Lati no Author Organization [facility] Address [address] [place] [address] Care Team Providers Care Bracelet And Brooch Maker Name Role Phone Farhat Cabezas MD Primary Care Provider [phone] Farhat Cabezas MD Unavailable [phone] Farhat Cabezas MD Unavailable [phone] Source Comments In the event this information is protected by the Federal Confidentiality of Alcohol and Drug AbusePatient Records regulations: The Federal rules restrict any use of the information to criminally investigate or prosecute any alcohol or drug abuse patient.[facility] Encounter Details Date Type Department Care Team (Late st Contact Info) Description 03/08/2023 Patient Msg Endocrinology [address] [place] [address] [place] [address] [place], [place] [phone] Checking-in Social History Tobacco Use Types Packs/Day [...] lower risk 2 12/21/2022 Data from: https://www.neighborhoodatlas.medicine.[facility]/. Last address used for [...] [facility] Endocrinology [address] [place] [address] Greg Nina APRN.STRIP CUTTING MACHINE OPERATOR [address] [place] [address] diabetes follow up with me in 3 months virtually 09/04/2024 11:30 AM EDT [facility] Gastroenterology [address] [address] Mika Rodgers MD [address] [place] [address] Esophageal stricture [K22.2]Diverticuliti s of colon [K57.32] 11/20/2024 1:00 PM EDT [facility] Endocrinology [address] [place] [address] Valdez Suarez MD [address] [place] [address] [address] [place], [place] [phone] follow up in 6 months documented as of this encounter Visit Diagnoses Not on filedocumented in this encounter Care Teams Bracelet And Brooch Maker Relationship Specialty Start Date End Date Farhat Cabezas MD PCP - General Family Medicine 01/13/11 Farhat Cabezas MD Referring Family Medicine 01/08/22 Farhat Cabezas MD 1265 [place] [address] Referring Family Medicine 07/26/24 documented as of this encounter
--- OUTSIDE RECORDS SUMMARY | 2024-08-27 07:46 | XMS_ITS | Encounter Summary ---
Author Organization [facility] Address [address] [place] [address] Care Team Providers Care Prisoner Classification Interviewer Name Role Phone Farhat Cabezas MD Primary Care Provider [phone] Farhat Cabezas MD Unavailable [phone] Farhat Cabezas MD Unavailable [phone] Source Comments In the event this information is protected by the Federal Confidentiality of Alcohol and Drug AbusePatient Records regulations: The Federal rules restrict any use of the information to criminally investigate or prosecute any alcohol or drug abuse patient.[facility] Encounter Details Date Type Department Care Team (Late st Contact Info) Description 04/15/2018 Patient Msg Medical Records [address] [place] [address] Provider, [facility] Counseling Referrals Social History Tobacco [...] Contact Info) Description 08/30/2024 9:30 AM EDT [facility] Endocrinology [address] [place] [address] Greg Nina APRN.HOME HEALTH CARE SOCIAL WORKER [address] [place] [address] diabetes follow up with me in 3 months virtually 09/04/2024 11:30 AM EDT [facility] Gastroenterology [address] [address] Mika Rodgers MD 7460 [place] [address] Esophageal stricture [K22.2]Diverticuliti s of colon [K57.32] 11/20/2024 1:00 PM EDT [facility] Endocrinology [address] [place] [address] Valdez Suarez MD [address] [place] [address] [place], [place] 3896[address] follow up in 6 months documented as of this encounter Visit Diagnoses Not on filedocumented in this encounter Care Teams Prisoner Classification Interviewer Relationship Specialty Start Date End Date Farhat Cabezas MD PCP - General Family Medicine 01/13/11 Farhat Cabezas MD Referring Family Medicine 01/08/22 Farhat Cabezas MD [address] [place] [address] Referring Family Medicine 07/26/24 documented as of this encounter
--- OUTSIDE RECORDS SUMMARY | 2024-08-27 07:46 | XMS_ITS | Encounter Summary ---
Demographics Address [address] [place] [address] Home Phone Mobile Phone Email Address Preferred Language ENG Marital Status Single Jain Affiliation Unknown Race White Ethnic Group Not or Lati no Author Organization [facility] Address [address] [place] [address] Care Team Providers Care Serology Teacher Name Role Phone Farhat Cabezas MD Primary Care Provider [phone] Farhat Cabezas MD Unavailable [phone] Farhat Cabezas MD Unavailable [phone] Source Comments In the event this information is protected by the Federal Confidentiality of Alcohol and Drug AbusePatient Records regulations: The Federal rules restrict any use of the information to criminally investigate or prosecute any alcohol or drug abuse patient.[facility] Encounter Details Date Type Department Care Team (Late st Contact Info) Description 02/19/2023 Patient Msg Endocrinology [address] [place] [address] [place] [address] [place] [address] Financial Resources Social History Tobacco [...] is lower risk 2 12/21/2022 Data from: https://www.neighborhoodatlas.medicine.[facility]/. Last address used for calculation [...] 9:30 AM EDT [facility] Endocrinology [address] [place] [address] Greg Nina APRN.RELOCATION COUNSELOR [address] [place] [address] diabetes follow up with me in 3 months virtually 09/04/2024 11:30 AM EDT [facility] Gastroenterology [address] [address] Mika Rodgers MD [address] [place] [address] Esophageal stricture [K22.2]Diverticuliti s of colon [K57.32] 11/20/2024 1:00 PM EDT [facility] Endocrinology [address] [place] [address] Valdez Suarez MD [address] [place] [address] [address] [place], [place] 7023835 follow up in 6 months documented as of this encounter Visit Diagnoses Not on filedocumented in this encounter Care Teams Serology Teacher Relationship Specialty Start Date End Date Farhat Cabezas MD PCP - General Family Medicine 01/13/11 Farhat Cabezas MD Referring Family Medicine 01/08/22 Farhat Cabezas MD [address] [place] [address] Referring Family Medicine 07/26/24 documented as of this encounter
--- OUTSIDE RECORDS SUMMARY | 2024-08-27 07:46 | XMS_ITS | Encounter Summary ---
Demographics Address [address] [facility] [place] [address] Home Phone Mobile Phone Email Address Preferred Language ENG Marital Status Single Rastafarian Affiliation Unknown Race White Ethnic Group Not or Lati no Author Organization [facility] Address [facility] [place] [address] Care Team Providers Care Electric Organ Assembler And Checker Name Role Phone Farhat Cabezas MD Primary Care Provider [phone] Farhat Cabezas MD Unavailable [phone] Farhat Cabezas MD Unavailable [phone] Source Comments In the event this [...] Description 02/08/2023 Get Medical Advice Neurology 5334 [place] [address] Thaddeus Diggs MD 1550 [place] [address] Desperate for answer Social History [...] lower risk 2 12/21/2022 Data from: https://www.neighborhoodatlas.medicine.[facility]/. Last address used for calculation [address] [...] 08/30/2024 9:30 AM EDT [facility] Endocrinology [address] [place] [address] Greg Nina, MARITZA.SEARCH ENGINE OPTIMIZATION SPECIALIST [address] [place] [address] diabetes follow up with me in 3 months virtually 09/04/2024 11:30 AM EDT [facility] Gastroenterology [address] [address] Mika Rodgers MD 9500 [place], [place] [address] Esophageal stricture [K22.2]Diverticuliti s of colon [K57.32] 11/20/2024 1:00 PM EDT [facility] Endocrinology [address] [place] [address] Valdez Suarez MD [address] [place] [address] [place], [place] [address] follow up in 6 months documented as of this encounter Visit Diagnoses Not on filedocumented in this encounter Care Teams Electric Organ Assembler And Checker Relationship Specialty Start Date End Date Farhat Cabezas MD PCP - General Family Medicine 01/13/11 Farhat Cabezas MD Referring Family Medicine 01/08/22 [place] [address] [place] [address] Referring Family Medicine 07/26/24 documented as of this encounter
--- OUTSIDE RECORDS SUMMARY | 2024-08-27 07:46 | XMS_ITS ---
Author Organization [facility] Address [address] [place] [address] Care Team Providers Care Compressor Mechanic Bus Name Role Phone Farhat Cabezas MD Primary Care Provider [phone] Farhat Cabezas MD Unavailable [phone] Farhat Cabezas MD Unavailable Active Problems * This document contains information [...] (09/24/2017): Added automatically from request for surgery [id number] Vomiting of fecal matter with nausea 09/24/2017 Overview (09/24/2017): Added automatically from request for surgery [id number] Postoperative malabsorption 03/04/2017 Pneumonia 12/06/2016 Nausea and [...] (08/31/2016): Added automatically from request for surgery [id number] Hernia, paraesophageal 08/31/201612/01 Overview (08/31/2016): Added automatically from request for surgery [id number] Mitral and aortic valve regurgitation 09/08/2009 10/23/2022 Overview (10/08/2017): Aortic insufficiency EF 60% DR Zuniga -- judged to be non-surgical and mild
--- OUTSIDE RECORDS SUMMARY | 2024-08-27 07:46 | XMS_ITS | Encounter Summary ---
Demographics Address [address] [place] [address] Home Phone Mobile Phone Email Address Preferred Language ENG Marital Status Single Restorationism Affiliation Unknown Race White Ethnic Group Not or Lati no Author Organization [facility] Address [address] [place] [address] Care Team Providers Care Birth Certificate Clerk Name Role Phone Farhat Cabezas MD Primary Care Provider [phone] Farhat Cabezas MD Unavailable [phone] Farhat Cabezas MD Unavailable [phone] Source Comments In the event this information is protected by the Federal Confidentiality of Alcohol and Drug AbusePatient Records regulations: The Federal rules restrict any use of the information to criminally investigate or prosecute any alcohol or drug abuse patient.[facility] Encounter Details Date Type Department Care Team (Late st Contact Info) Description 03/16/2023 Patient Msg Endocrinology [address] [place] [address] [place] [address] [place] [address] Following up Social History Tobacco [...] risk 2 12/21/2022 Data from: https://www.neighborhoodatlas.medicine.[facility]/. Last address used for calculation [address] [...] 9:30 AM EDT [facility] Endocrinology [address] [place] [address] Greg Nina APRN.SUPERVISOR COLOR PASTE MIXING [address] [place] [address] diabetes follow up with me in 3 months virtually 09/04/2024 11:30 AM EDT [facility] Gastroenterology [address] [address] Mika Rodgers MD [address] [place] [address] Esophageal stricture [K22.2]Diverticuliti s of colon [K57.32] 11/20/2024 1:00 PM EDT [facility] Endocrinology [address] [place] [address] Valdez Suarez MD [address] [place] [address] [address] [place], [place] 3388235 follow up in 6 months documented as of this encounter Visit Diagnoses Not on filedocumented in this encounter Care Teams Birth Certificate Clerk Relationship Specialty Start Date End Date Farhat Cabezas MD PCP - General Family Medicine 01/13/11 Farhat Cabezas MD Referring Family Medicine 01/08/22 Farhat Cabezas MD [address] [place] [address] Referring Family Medicine 07/26/24 documented as of this encounter
--- OUTSIDE RECORDS SUMMARY | 2024-08-27 07:46 | XMS_ITS | Encounter Summary ---
Author Organization [facility] Address [address] [place] [address] Care Team Providers Care Journeyman Electrician Pv Installer Name Role Phone Farhat Cabezas MD Primary Care Provider [phone] Farhat Cabezas MD Unavailable [phone] Farhat Cabezas MD Unavailable [phone] Source Comments In the event this [...] Description 02/09/2018 Patient Msg General Surgery 9300 [place] [address] Monica Adam RN labs Social [...] 9:30 AM EDT [facility] Endocrinology [address] [place] [address] Greg Nina APRN.BOARD CATCHER [address] [place] [address] diabetes follow up with me in 3 months virtually 09/04/2024 11:30 AM EDT [facility] Gastroenterology [address] [address] Mika Rodgers MD 2170 [place] [address] Esophageal stricture [K22.2]Diverticuliti s of colon [K57.32] 11/20/2024 1:00 PM [facility] Endocrinology [address] [place] [address] Valdez Suarez MD [address] [place] [address] [address] [place], [place] [address]8535 follow up in 6 months documented as of this encounter Visit Diagnoses Not on filedocumented in this encounter Care Teams Journeyman Electrician Pv Installer Relationship Specialty Start Date End Date Farhat Cabezas MD PCP - General Family Medicine 01/13/11 Farhat Cabezas MD Referring Family Medicine 01/08/22 Farhat Cabezas MD 12[address] [place] [address] Referring Family Medicine 07/26/24 documented as of this encounter
--- OUTSIDE RECORDS SUMMARY | 2024-08-27 07:46 | XMS_ITS | Encounter Summary ---
Author Organization [facility] Address [address] [place] [address] Care Team Providers Care Cornice Maker Name Role Phone Farhat Cabezas MD Primary Care Provider [phone] Farhat Cabezas MD Unavailable [phone] Farhat Cabezas MD Unavailable [phone] Source Comments In the event this information is protected by the Federal Confidentiality of Alcohol and Drug AbusePatient Records regulations: The Federal rules restrict any use of the information to criminally investigate or prosecute any alcohol or drug abuse patient.[facility] Encounter Details Date Type Department Care Team (Late st Contact Info) Description 05/26/2018 Abstract BMI [facility] [address] [place] [address] Rachel Yi MD 9500 [place] [address] Social History Tobacco Use Types [...] Info) Description 08/30/2024 9:30 AM EDT [facility] Endocrinology [address] [place] [address] Greg Nina APRN.PRIMER INSPECTOR [address] [place] [address] diabetes follow up with me in 3 months virtually 09/04/2024 11:30 AM EDT [facility] Gastroenterology [address] [address] Mika Rodgers MD 9687 [place], [place] 00[address] Esophageal stricture [K22.2]Diverticuliti s of colon [K57.32] 11/20/2024 1:00 PM EDT [facility] Endocrinology [address] [place] [address] Valdez Suarez MD [address] [place] [address] [place], [place] 7378935 follow up in 6 months documented as of this encounter Visit Diagnoses Not on filedocumented in this encounter Care Teams Cornice Maker Relationship Specialty Start Date End Date Farhat Cabezas MD PCP - General Family Medicine 01/13/11 Farhat Cabezas MD Referring Family Medicine 01/08/22 Farhat Cabezas MD [address] [place] [address] Referring Family Medicine 07/26/24 documented as of this encounter
--- OUTSIDE RECORDS SUMMARY | 2024-08-27 07:46 | XMS_ITS | Encounter Summary ---
Demographics Address [address] [facility] [place] [address] Home Phone Mobile Phone Email Address Preferred Language ENG Marital Status Single Quaker Affiliation Unknown Race White Ethnic Group Not or Lati no Author Organization [facility] Address [facility] [place] [address] Care Team Providers Care Lpn Medical Assistant Name Role Phone Farhat Cabezas MD Primary Care Provider [phone] Farhat Cabezas MD Unavailable [phone] Farhat Cabezas MD Unavailable [phone] Source Comments In the event this information is protected by the Federal Confidentiality of Alcohol and Drug AbusePatient Records regulations: The Federal rules restrict any use of the information to criminally investigate or prosecute any alcohol or drug abuse patient.[facility] Encounter Details Date Type Department Care Team (Late st Contact Info) Description 01/28/2023 Get Medical Advice Neurology 5334 [place] [address] Thaddeus Diggs MD 1660 [place] [address] Continuing issues Social History Tobacco [...] is lower risk 2 12/21/2022 Data from: https://www.neighborhoodatlas.medicine.[facility]/. Last address used for [...] 08/30/2024 9:30 AM EDT [facility] Endocrinology [address] [place] [address] Greg Nina, MARITZA.CERTIFIED PERSONAL TRAINER [address] [place] [address] diabetes follow up with me in 3 months virtually 09/04/2024 11:30 AM EDT [facility] Gastroenterology [address] [address] Mika Rodgers MD 9500 [place], [place] [address] Esophageal stricture [K22.2]Diverticuliti s of colon [K57.32] 11/20/2024 1:00 PM EDT [facility] Endocrinology [address] [place] [address] Valdez Suarez MD [address] [place] [address] [place], [place] 7166435 follow up in 6 months documented as of this encounter Visit Diagnoses Not on filedocumented in this encounter Care Teams Lpn Medical Assistant Relationship Specialty Start Date End Date Farhat Cabezas MD PCP - General Family Medicine 01/13/11 Farhat Cabezas MD Referring Family Medicine 01/08/22 Farhat Cabezas MD 1265 [place] [address] Referring Family Medicine 07/26/24 documented as of this encounter
--- OUTSIDE RECORDS SUMMARY | 2024-08-27 07:46 | XMS_ITS | Encounter Summary ---
Demographics Address [address] [facility] [place] [address] Home Phone Mobile Phone Email Address Preferred Language ENG Marital Status Single Synagogue Affiliation Unknown Race White Ethnic Group Not or Lati no Author Organization [facility] Address [address] [place] [address] Care Team Providers Care Art Handler Name Role Phone Farhat Cabezas MD Primary Care Provider [phone] Farhat Cabezas MD Unavailable [phone] Farhat Cabezas MD Unavailable [phone] Source Comments In the event this information is protected by the Federal Confidentiality of Alcohol and Drug AbusePatient Records regulations: The Federal rules restrict any use of the information to criminally investigate or prosecute any alcohol or drug abuse patient.[facility] Encounter Details Date Type Department Care Team (Late st Contact Info) Description 01/05/2021 Get Medical Advice Rheumatology [address] [address] Lorenzo Perry DO 4[address] [facility] [address] [place] [phone] Mri/pain shoulder Social History Tobacco Use Types [...] N ot on file 01/16/2020 Data from: https://www.neighborhoodatlas.medicine.[facility]/. Last address used for calculation Not on [...] 9:[address] [facility] Endocrinology [address] [place] [address] Greg Nina APRN.VASCULAR TECH [address] [place] [address] diabetes follow up with me in 3 months virtually 09/04/2024 11:[address] [facility] Gastroenterology [address] [address] Mika Rodgers MD 9500 [place] [address] Esophageal stricture [K22.2]Diverticuliti s of colon [K57.32] 11/20/2024 1:[address] [facility] Endocrinology [address] [place] [address] Valdez Suarez MD [address] [place] [address] [address] [place], [place] 4745135 follow up in 6 months documented as of this encounter Visit Diagnoses Not on filedocumented in this encounter Care Teams Art Handler Relationship Specialty Start Date End Date Farhat Cabezas MD PCP - General Family Medicine 01/13/11 Farhat Cabezas MD Referring Family Medicine 01/08/22 Farhat Cabezas MD [address] [place] [address] Referring Family Medicine 07/26/24 documented as of this encounter
--- OUTSIDE RECORDS SUMMARY | 2024-08-27 07:46 | XMS_ITS | Encounter Summary ---
Author Organization [facility] Address [address] [place] [address] Care Team Providers Care Information Systems Auditor Name Role Phone Farhat Cabezas MD Primary Care Provider [phone] Farhat Cabezas MD Unavailable [phone] Farhat Cabezas MD Unavailable [phone] Source Comments In the event this information is protected by the Federal Confidentiality of Alcohol and Drug AbusePatient Records regulations: The Federal rules restrict any use of the information to criminally investigate or prosecute any alcohol or drug abuse patient.[facility] Encounter Details Date Type Department Care Team (Late st Contact Info) Description 10/04/2017 Patient Msg General Surgery [address] [place] [address] Provider, [facility] EGD/Colonoscopy Prep Instructions for 10/13/17 [...] Assessment Author No 12/14/2016 12:43 PM Mona Dubsoe (Rn) (Hist), RN * Do you have [...] 08/30/2024 9:30 AM EDT [facility] Endocrinology [address] [place] [address] Greg Nina APRN.PUBLIC AFFAIRS DIRECTOR [address] [place] [address] diabetes follow up with me in 3 months virtually 09/04/2024 11:30 AM EDT [facility] Gastroenterology [address] [address] Mika Rodgers MD 6390 [place], [place] [address] Esophageal stricture [K22.2]Diverticuliti s of colon [K57.32] 11/20/2024 1:00 PM EDT [facility] Endocrinology [address] [place] [address] Valdez Suaerz MD [address] [place] [address] [place], [place] 575[address] follow up in 6 months documented as of this encounter Visit Diagnoses Not on filedocumented in this encounter Care Teams Information Systems Auditor Relationship Specialty Start Date End Date Farhat Cabezas MD PCP - General Family Medicine 01/13/11 Farhat Cabezas MD Referring Family Medicine 01/08/22 Farhat Cabezas MD 1265 [place] [address] Referring Family Medicine 07/26/24 documented as of this encounter
--- OUTSIDE RECORDS SUMMARY | 2024-08-27 07:46 | XMS_ITS | Encounter Summary ---
Demographics Address [address] [place] [address] Home Phone Mobile Phone Email Address Preferred Language ENG Marital Status Single Jehovah'S Witness Affiliation Unknown Race White Ethnic Group Not or Lati no Author Organization [facility] Address [address] [place] [id number] Care Team Providers Care Clinical Safety Manager Name Role Phone Farhat Cabezas MD Primary Care Provider [phone] Farhat Cabezas MD Unavailable [phone] Farhat Cabezas MD Unavailable [phone] Source Comments In the event this information is protected by the Federal Confidentiality of Alcohol and Drug AbusePatient Records regulations: The Federal rules restrict any use of the information to criminally investigate or prosecute any alcohol or drug abuse patient.[facility] Encounter Details Date Type Department Care Team (Late st Contact Info) Description 01/20/2021 [place] [address] Provider, [facility] MRI Screening Questionnaire Completion Required [...] N ot on file 01/16/2020 Data from: [email or web address] Last address used for calculation Not [...] 9:30 AM EDT [facility] [address] [place] [address] Greg Nina APRN.[employer] [address] [place], [place] [id number] diabetes follow up with me in 3 months virtually 09/04/2024 11:30 AM EDT [facility] Gastro[facility] [address] [address] Mika Rodgers MD [address] [place] [address] Esophageal stricture [K22.2]Diverticuliti s of colon [K57.32] 11/20/2024 1:00 PM EDT [facility] [address] [place] [address] Valdez Suarez MD [address] [place] [address] [address] [place], [place] [id number] follow up in 6 months documented as of this encounter Visit Diagnoses Not on filedocumented in this encounter Care Teams Clinical Safety Manager Relationship Specialty Start Date End Date Farhat Cabezas MD PCP - General Family Medicine 01/13/11 Farhat Cabezas MD Referring Family Medicine 01/08/22 Farhat Cabezas MD [address] [place] [id number] Referring Family Medicine 07/26/24 documented as of this encounter
--- OUTSIDE RECORDS SUMMARY | 2024-08-27 07:47 | XMS_ITS | Patient Health Record ---
Author Organization [facility] [place] Address [address] [place] [address] Care Team Providers Care Interlocker Name Role Phone DAVEY CABEZAS MD Primary Care Provider Davey Cabezas Unavailable [phone] Adrienne Corbett Unavailable [phone] Allergies Allergen (clinical drug ingredient) Drug/Non Drug Allergy documented on EMR Reaction Allergy Type Onset Date Status metformin metFORMIN HCl stomach upset Drug Allergy Active ibuprofen Ibuprofen stomach upset Drug Allergy Act libertad Results Component Value Reference Range Notes CBC AUTO DIFF Reviewed date:07/23/2024 12:49:20 PM Interpretation: Performing Lab: Notes/Report: [facility] , White Blood Count 7.7 4.0-11.0 [...] Performing Lab: see note ML - [facility] LB CRP Reviewed date:07/23/2024 12:49:20 PM Interpretation: Performing Lab: Notes/Report: [facility] , C Reactive Protein 2.23 <=0.50 mg/dL Performing Lab: see note ML - [facility] LB FREE T3 Reviewed date:07/23/2024 12:49:20 PM Interpretation: Performing Lab: Notes/Report: [facility] , Free T3 2.09 2.18-3.98 pg/mL Performing Lab: see note ML - [facility] LB IRON Reviewed date:07/23/2024 12:49:20 PM Interpretation: Performing Lab: Notes/Report: [facility] , Iron 34.0 50.0-170.0 ug/dL Performing Lab: see note ML - [facility] LB PROF 14(COMP METB) Reviewed date:07/23/2024 12:49:20 PM Interpretation: Performing Lab: Notes/Report: [facility] , Sodium 138 136-145 mmol/L Potassium [...] 0.8 Performing Lab: see note ML - [facility] LB T4 Reviewed date:07/23/2024 12:49:20 PM Interpretation: Performing Lab: Notes/Report: [facility] , T4 Thyroxine 5.40 4.80-13.90 ug/dL Performing Lab: see note ML - [facility] LB TSH Reviewed date:07/23/2024 12:49:20 PM Interpretation: Performing Lab: Notes/Report: [facility] , Thyroid Stimulating Hormone 4.618 0.358-3.740 uIU/mL Performing Lab: see note ML - [facility] LB URIC ACID SERUM Reviewed date:07/23/2024 12:49:20 PM Interpretation: Performing Lab: Notes/Report: [facility] , Uric Acid 5.8 2.6-6.0 mg/dL Performing Lab: see note ML - [facility] PROF CHEM 8 (BAS METB) Reviewed date:08/17/2024 07:11:32 PM Interpretation: Performing Lab: Notes/Report: [facility] , Sodium 142 136-145 mmol/L Potassium [...] 9.0 8.5-10.1 mg/dL Performing Lab: see note ML - [facility] LB XR tibia fibula LT 2V Reviewed date:08/22/2024 09:11:27 PM Interpretation: Performing Lab: Notes/Report: Source Facility: [place] [address] XRay Report Signed Patient: ESME REYES MR#: [id number] : 1975 Acct:[id number] Age/Sex: 49 / F ADM Date: 08/21/24 Loc: RAD Attending Dr: Maribel Cabezas M.D. Ordering Physician: Maribel Cabezas M.D. Date of Service: 08/21/24 Procedure(s): XR tibia fibula LT 2V Accession Number(s): [id number] cc: Maribel Cabezas M.D. [place] [address] Patient Name: ESME REYES MRN: [id number] date: 1975 Sex: F Assigned Patient Location: [facility] Current Patient Location: Accession/Order Number: [id number] Exam Date: 08/22/2024 07:43 Report Date: 08/22/2024 07:58 At the request of: MARIBEL CABEZAS MD Procedure: XR tibia fibula LT 2V LEFT TIBIA AND FIBULA - 2 views CLINICAL HISTORY: Weakness with fall down stairs. Anterior pain, swelling and bruising at the left lower leg. R53.1 COMPARISON: Left knee 12/15/2021 AP and lateral views of the left tibia and fibula were obtained. There is no evidence of fracture, dislocation or bony destruction. Small enthesophytes are seen the medial femoral condyle and patella as well as the posterior and plantar calcaneus. Mild pretibial soft tissue swelling is noted. There is also subcutaneous edema. XR/XR tibia fibula LT 2V IMPRESSION: NO ACUTE BONY FINDINGS. Impression dictated by: Mitzi Flower M.D. 08/22/2024 7:58 AM Dictation Location: [place] [address] Electronically authenticated by: [id number] Y Date: 08/22/2024 07:58 Dictated By: Mitzi Flower M.D. Signed By: 08/22/24799 DD/ 0758 TD/TT: Pyridine Recovery Operator: [place] [address] XRay Report Signed Patient: MIKE REYES MR#: [id number] : 1975 Acct:[id number] Age/Sex: 49 / F ADM Date: 08/21/24 Loc: RAD Attending Dr: Deidre Cabezas M.D. Ordering Physician: Maribel Cabezas M.D. Date of Service: 08/21/24 Procedure(s): XR tib ia fibula LT 2V Accession Number(s): [id number] cc: Maribel Cabezas M.D. [place] [address] Patient Name: ESME REYES MRN: [id number] date: 1975 Sex: F Assigned Patient Location: [facility] Current Patient Location: Accession/Order Numb er: [id number] Exam Date: 08/22/2024 07:43 Report Date: 08/22/2024 07:58 At the request of: MARIBEL CABEZAS MD Procedure: XR tibia fibula LT 2V LEFT TIBIA AND FIBUL A - 2 views CLINICAL HISTORY: Weakness with fall down stairs. Anterior pain, swelling and bruising at the left lower leg. R53.1 COMPARISON: Left kne e 12/15/2021 AP and lateral views of the left tibia and fibula were obtained. There is no evidence of fracture , dislocation or bony destruction. Small enthesophytes are seen the medial femoral condyle and patella as well as the posterior and plantar calcaneus. M ild pretibial soft tissue swelling is noted. There is also subcutaneous edema. X R/XR tibia fibula LT 2V IMPRESSION: NO ACUTE BONY FINDINGS. Impression dictated by: Mitzi Flower M.D. 08/22/2024 7:58 AM Dictation Location: [place] [address] Electronically authenticated by: [id number] Y Date: 08/22/2024 07:58 Dictated By: Mitzi Flower M.D. Signed By: 08/22/24 0800 DD/ 0758 TD/TT: Pyridine Recovery Operator: CBC AUTO DIFF Reviewed date:08/17/2024 07:11:32 PM Interpretation: Performing Lab: Notes/Report: [facility] , White Blood Count 10.4 4.0-11.0 [...] Performing Lab: see note ML - [facility] LB XR chest 2V Reviewed date:07/23/2024 12:49:20 PM Interpretation: Performing Lab: Notes/Report: Source Facility: [facility] [place] [address] [address] XRay Report Signed Patient: ESME REYES MR#: [id number] : 1975 Acct:[id number] Age/Sex: 49 / F ADM Date: 07/20/24 Loc: LAB Attending Dr: Maribel Cabezas M.D. Ordering Physician: Maribel Cabezas M.D. Date of Service: 07/20/24 Procedure(s): XR chest 2V Accession Number(s): [id number] cc: Maribel Cabezas M.D. [address] [address] Patient Name: ESME REYES MRN: [id number] date: 1975 Sex: F Assigned Patient Location: LAB Current Patient Location: LAB Accession/Order Number: [id number] Exam Date: 07/20/2024 17:55 Report Date: 07/20/2024 [...] Diego M.D. 07/20/2024 5:55 PM Dictation Location: [place] [address] Electronically authenticated by: [id number] Y Date: 07/20/2024 17:55 Dictated By: Roberto Diego D.O. Signed By: 07/20/241757 DD/ 54 TD/TT: Pyridine Recovery Operator: The [address] [address] XRay Report Signed Patient: MIKE REYES MR#: [id number] : 1975 Acct:[id number] Age/Sex: 49 / F ADM Date: 07/20/24 Loc: LAB Attending Dr: Deidre Cabezas M.D. Ordering Physician: Maribel Cabezas M.D. Date of Service: 07/20/24 Procedure(s): XR chest 2V Accession Number(s): [id number] cc: Maribel Cabezas M.D. [place] [id number] Patient Name: ESME REYES MRN: [id number] date: 1975 Sex: F Assigned Patient Location: LAB Current Patient Loca tion: LAB Accession/Order Numb er: [id number] Exam Date: 07/20/2024 17:55 Report Date: 07/20/2024 [...] Diego M.D. 07/20/2024 5:55 PM Dictation Location: [place] [address] Electronically authenticated by: [id number] Y Date: 07/20/2024 17:55 Dictated By: Flo Diego D.O. Signed By: 07/20/241757 DD/ 54 TD/TT: Pyridine Recovery Operator: Vitamin B12 Reviewed date:07/23/2024 12:49:20 PM Interpretation: Performing Lab: Notes/Report: [facility] , Vitamin B12 737 519-1472 pg/mL Performed at: - [facility] [address] [id number] Director Community Organization: Moi Osborne PhD, Phone: [phone] Performing Lab: see note - [facility] LB Vitamin D, 25-Hydroxy Reviewed date:07/25/2024 04:47:33 PM Interpretation: Performing Lab: Notes/Report: [facility] , Vitamin D, 25-Hydroxy 26.6 30.0-100.0 ng/mL Vitamin D deficiency has been defined by the [place] of Medicine and an Endocrine Society practice guideline as a level of serum 25-OH vitamin D less than 20 ng/mL (1,2). The Endocrine Society went on to further define vitamin D insufficiency as a level between 21 and 29 ng/mL (2). 1. IOM ([place] of Medicine). 2010. Dietary reference intakes for calcium and D. [place]: The National Academies Press. 2. Joseph MF, [place], Tequila [place], et al. Evaluation, treatment, and prevention of vitamin D deficiency: an Endocrine Society clinical practice guideline. JCEM. 2010; 96(7):1911-30. Performed at: [address] [id number] Director Community Organization: Moi Obsorne PhD, Phone: [phone] Performing Lab: see note [facility] Antistreptolysin O Ab Reviewed date:07/25/2024 04:47:33 PM Interpretation: Performing Lab: Notes/Report: [facility] , Antistreptolysin O Ab 104.5 0.0-200.0 IU/mL Performed at: [address] [id number] Director Community Organization: Moi Osborne PhD, Phone: [phone] Performing Lab: see note [facility] LB RHEUMATOID FACTOR Reviewed date:07/25/2024 04:47:33 PM Interpretation: Performing Lab: Notes/Report: [facility] , Rheumatoid Factor (RF) <10.0 <14.0 IU/mL Performing Lab: see note - [facility] LB FOLATE Reviewed date:07/23/2024 12:49:20 PM Interpretation: Performing Lab: Notes/Report: [facility] , Folate 4.60 8.60-58.90 ng/mL Performing Lab: see note - [facility] LB RAFAELA by IFA Reviewed date:07/25/2024 04:47:33 PM Interpretation: Performing Lab: Notes/Report: [facility] , Antinuclear Antibodies, IFA Negative . Negative <1:80 Borderline 1:80 Positive >1:80 ICAP nomenclature: AC-0 For more information about Hep-2 cell patterns use ANApatterns.org, the official website for the International Consensus on Antinuclear Antibody (RAFAELA) Patterns (ICAP). Performed at: [address], [place], [place] [id number] Director Community Organization: Moi Osborne PhD, Phone: [phone] Performing Lab: see note LC - [facility] LB UA (CLEAN or CATCH) MANAGEMENT AIDE or M ICRO IF IND. Reviewed date:04/05/2024 12:43:55 PM Interpretation: Performing Lab: Notes/Report: [facility] , Color Urine LT. YELLOW YELLOW Clarity Urine CLEAR CLEAR Specific [place] Urine 1.015 1.005-1.025 pH Urine 6.0 5.0-9.0 Protein Urine NEGATIVE NEG/TRACE mg/dL Glucose Urine UA NEGATIVE NEGATIVE mg/dL Bilirubin Urine NEGATIVE NEGATIVE Ketones Urine NEGATIVE NEGATIVE mg/dL Blood Urine NEGATIVE NEGATIVE Nitrite Urine NEGATIVE NEGATIVE Urobilinogen Urine 1.0 0.2-1.0 EU/dL Leukocyte Esterase Urine NEGATIVE NEGATIVE Urine Microscopic Indicated NO Performing Lab: see note ML - [facility] LB PROF 14(COMP METB) Reviewed date:04/05/2024 12:43:55 PM Interpretation: Performing Lab: Notes/Report: [facility] , Sodium 139 136-145 mmol/L Potassium [...] Performing Lab: see note ML - [facility] LB CBC AUTO DIFF Reviewed date:04/05/2024 12:43:55 PM Interpretation: Performing Lab: Notes/Report: [facility] , White Blood Count 8.5 4.0-11.0 [...] Performing Lab: see note ML - [facility] LB FERRITIN Reviewed date:07/23/2024 12:49:20 PM Interpretation: Performing Lab: Notes/Report: [facility] , Ferritin 18.0 8.0-252.0 ng/mL Performing Lab: see note ML - [facility] LB XR chest 1V Reviewed date:08/17/2024 07:11:32 PM Interpretation: Performing Lab: Notes/Report: Source Facility: [facility]-[address] [place] [address] [place] [address] XRay Report Signed Patient: EMSE REYES MR#: [id number] : 1975 Acct:[id number] Age/Sex: 49 / F ADM Date: 08/17/24 Loc: ER Attending Dr: Ordering Physician: Baylee Gallardo M.D. Date of Service: 08/17/24 Procedure(s): XR chest 1V Accession Number(s): [id number] cc: Mairbel Cabezas M.D.; Baylee Gallardo M.D. [address] [id number] Patient Name: ESME REYES MRN: [id number] date: 1975 Sex: F Assigned Patient Location: ER Current Patient Location: ER Accession/Order Number: [id number] Exam Date: 08/17/2024 14:34 Report Date: 08/17/2024 [...] Jefferson M.D. 08/17/2024 2:35 PM Dictation Location: [place] [address] Electronically authenticated by: [id number] Y Date: 08/17/2024 14:35 Dictated By: Saravanan Jefferson M.D. Signed By: 08/17/24 1438 DD/ 143 TD/TT: Pyridine Recovery Operator: The [address] [address] XRay Report Signed Patient: MIKE REYES MR#: [id number] : 1975 Acct:[id number] Age/Sex: 49 / F ADM Date: 08/17/24 Loc: ER Attending Dr: Ordering Physician: Baylee Gallardo M.D. Date of Service: 08/17/24 Procedure(s): XR chest 1V Accession Number(s): [id number] cc: Maribel Cabezas M.D. ; Baylee Gallardo M.D. [address] [address] Patient Name: ESME REYES MRN: [id number] date: 1975 Sex: F Assigned Patient Location: ER Current Patient Loca tion: ER Accession/Order Numb er: [id number] Exam Date: 08/17/2024 14:34 Report Date: 08/17/2024 [...] Jefferson M.D. 08/17/2024 2:35 PM Dictation Location: [place] [address] Electronically authenticated by: [id number] Y Date: 08/17/2024 14:35 Dictated By: Saravanan Jefferson M.D. Signed By: 08/17/24 1438 DD/ 34 TD/TT: Pyridine Recovery Operator: ECG 12 lead Reviewed date:08/22/2024 09:11:27 PM Interpretation: Performing Lab: Notes/Report: Source Facility: [facility] [place] [address] [place] [address] Electrocardiograph Report Signed Patient: ESME REYES MR#: [id number] : 1975 Acct:[id number] Age/Sex: 49 / F ADM Date: 08/17/24 Loc: ER Attending Dr: Ordering Physician: Baylee Gallardo M.D. 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 Signed By: 08/22/24 1308 DD/ 1329 TD/TT: Pyridine Recovery Operator: [place] [address] Electrocardiograph Report Signed Patient: MIKE REYES MR#: [id number] : 1975 Acct:[id number] Age/Sex: 49 / F ADM Date: 08/17/24 Loc: ER Attending Dr: Ordering Physician: Baylee Gallardo M.D. 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 Signed By: 08/22/24 1308 DD/ 1329 TD/TT: Pyridine Recovery Operator: Urine Culture - [facility] Reviewed date:08/22/2024 09:11:27 PM Interpretation: Performing Lab: Notes/Report: [facility] , Urine Culture - [facility] See Below For Report Urine Culture - [facility] <9,000 colonies/ml mixed Urine Culture - [facility] bacterial skin contaminants Urine Culture - [facility] <9,000 colonies/ml mixed Urine Culture - [facility] 2 Days Urine Culture - [facility] <9,000 colonies/ml mixed Urine Culture - [facility] Urine Culture - [facility] <9,000 colonies/ml mixed Urine Culture - [facility] Testing performed a [facility] Urine Culture - [facility] <9,000 colonies/ml mixed Urine Culture - [facility] [address], [place] [address] Urine Culture - [facility] <9,000 colonies/ml mixed Performing Lab: see note ML - [facility] LB UA RANDOM W or MICROSCOPIC Reviewed date:08/17/2024 07:11:32 PM Interpretation: Performing Lab: Notes/Report: [facility] , Color Urine YELLOW YELLOW Clarity Urine CLEAR CLEAR Specific [place] Urine 1.025 1.005-1.025 pH Urine 6.0 5.0-9.0 [...] Hyaline Casts Urine RARE Urine Culture Indicated YES-FR Performing Lab: see note ML - [facility] LB Reason For Referral Diagnosis 1 Fracture of metatars al bone (S92.309A) Referral Organization [facility] Referring Provider First Name Davey Referring Provider Last Name Jared [facility] Romero Mueller Referred Provider Specialty Orthopedic S urgery Referral Priority Routine Diagnosis 1 Weakness (R53.1) Referral Organization [facility] Referring Provider First Name Davey Referring Provider Last Name Raulito [facility] Provider [facility], Physical Therap y Referred Provider Specialty Physical The rapist Referral Priority Routine Reason Needs EGD and Colono scopy please! Diagnosis 1 Anemia (D64.9) Referral Organization [facility] Referring Provider First Name Davey Referring Provider Last Name Jared Referring Provider [facility] Referred Provider Santos Freeman Referred Provider Specialty General Surg santana Referral Priority Routine Reason PT and aquatic thera py - eval an dtreat Diagnosis 1 Weakness (R53.1) Referral Organization [facility] Referring Provider First Name Davey Referring Provider Last Name Jared Referring Provider [facility] Referred Provider Shawn Chawla PT, Nor [...] Problem Status W/U Status Risk Notes Problem [id number] 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 Problem Hypoglycemia (548198642) Hypoglycemia, unspecified (E16.2) Active confirmed Problem Dehydration (58827506) Dehydration (E86.0) Active confirmed Problem Palpitations (73179737) Palpitations (R00.2) Active confirmed Problem Weakness (79893263) Weakness (R53.1) Active con firmed Problem History of cardiac catheterization (87164715660940) History of cardiac catheterization (V45.89) Active confirmed Problem Obesity (092779905) Obesity (E66.9) Active conf irmed Problem Anxiety (55503350) Anxiety (F41.9) Active confi rmed Problem Edema (51372596) Edema (R60.9) Active confirmed Problem History of cardiac catheterization (01670918041795) H/O cardiac catheterization (V45.89) Active confirmed Problem Anemia (302873779) Anemia (D64.9) Active confir med Problem Dyspnea (324995078) Dyspnea (R06.00) Active con firmed Problem Sleep apnea (77398867) Sleep apnea (G47.30) Active confirmed Problem CVA - Cerebrovascular accident (790898325) CVA (cerebral vascular accident) (I63.9) Active confirmed Problem Insomnia (867602002) Insomnia (G47.00) Active confirmed Problem Hiatal hernia (03238115) Hiatal hernia (K44.9) Active confirmed Problem Hip pain (06810644) Hip pain (M25.559) Active c onfirmed Problem Syncope (578751014) Syncope (R55) Active confir med Problem Vitamin D deficiency (10635242) Vitamin D deficiency (E55.9) Active confirmed Problem Alcohol abuse (10507723) Alcohol abuse (F10.10) Active confirmed Problem Generalized anxiety disorder (52720250) ESTRELLITA (generalized anxiety disorder) (F41.1) Active confirmed Problem Arthralgia (19738270) Arthralgia (M25.50) Active confirmed Problem Pain of right knee region (finding) (853740361421888) Knee pain, right (M25.561) Active confirmed Problem Dysmenorrhea (015173142) Dysmenorrhea (N94.6) Active confirmed Problem Acute bronchitis (62224433) Acute bronchitis (J20.9) Active confirmed Problem Leg pain (10950703) Leg pain (M79.606) Active c onfirmed Problem Paresthesia (79087284) Paresthesia (R20.2) Active confirmed Problem Dysphagia (43988363) Dysphagia (R13.10) Active confirmed Problem Acquired hypothyroidism (880592707) Acquired hypothyroidism (E03.9) Active confirmed Problem Cellulitis (486458284) Cellulitis (L03.90) Active confirmed Problem Plantar fasciitis (805409915) Plantar fasciitis (M72.2) Active confirmed Problem Esophageal stricture (54821052) Esophageal stricture (K22.2) Active confirmed Problem Skin sensation disturbance (69121046) Arm paresthesia, left (R20.2) Active confirmed Problem Dyshidrotic eczema (257938036) Dyshidrotic eczema (L30.1) Active confirmed Problem Diverticulitis of colon (554794699) Diverticulitis of colon (K57.32) Active confirmed Problem Menometrorrhagia (000108926) Menometrorrhagia (N92.1) Active confirmed Problem Type II diabetes mellitus without complication (900112295) Type 2 diabetes mellitus without complication (E11.9) Active confirmed Problem 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 Problem Chronic lymphocytic thyroiditis (64374684) Chronic lymphocytic thyroiditis (E06.3) Active confirmed Problem Suicidal ideation (4481367) Suicidal ideation (R45.851) Active confirmed Problem Gastro-esophageal reflux disease (587858814) Gastro-esophageal reflux disease (K21.9) Active confirmed Problem Fracture of metatarsal bone (633510124) Fracture of metatarsal bone (S92.309A) Active confirmed Problem Postprocedural states (642307358) Other specified postprocedural states (Z98.890) Active confirmed Problem Moderate dehydration (8043946463067) Dehydration, moderate (E86.0) Active confirmed Problem Follicular thyroid carcinoma (752971134) Follicular thyroid carcinoma (C73) Active confirmed Problem Diabetes mellitus (37959431) Diabetes mellitus (E11.9) Active confirmed Problem Ureteric stone (02892049) Calculus, ureteral (N20.1) Active confirmed Vital Signs [...] N/A Encounters Encounter Location Date Provider Diagnosis [address] [address] 07/20/2024 Davey Hoy Anemia D64.9 ; Vitam in D deficiency E55.9 ; 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 ; Acute bronchitis J20.9 and Weakness R53.[address] [address] 08/21/2024 Davey Hoy Leg pain M79.606 and Weakness R53.[address] [address] 12/06/2023 Adrienne Aric Urine abnormality R82.90 ; Loose stools R19.5 and Wellness examination Z00.[address] [address] 05/22/2024 Davey Hoy Palpitations R00.2 ; Insomnia G47.00 ; ESTRELLITA (generalized anxiety disorder) F41.1 and Right foot pain M79.671 [facility] [address] [facility] [place] [address] 08/03/2024 Davey Hoy Palpitations R00.2 [facility] [address] [facility] [place] [address] 08/09/2024 Davey Hoy [facility] [address] [facility] [place] [address] 08/15/2024 Davey Hoy Palpitations R00.2 [facility] [address] [facility] [address] 08/21/2024 Davey Hoy [facility] [address] [facility] [place] [address] 08/22/2024 Davey Hoy [facility] [address] [facility] [place] [address] 07/23/2024 Davey Hoy Peace's thyroidi tis E06.3 ; Palpitations R00.2 and Anemia D64.9 [facility] [address] [facility] [place] [address] 07/24/2024 Davey Hoy Frequency of micturition R35.0 [facility] [address] [facility] [place] [address] 07/24/2024 Davey Hoy [facility] [address] [facility] [place] [address] 07/24/2024 Davey Hoy Palpitations R00.2 [facility] [facility] [address] [facility] [place] [address] 07/24/2024 Davey Hoy Esophageal stricture K22.2 and Diverticulitis of colon K57.32 [facility] [address] [facility] [address] 07/25/2024 Davey Hoy [facility] [address] [facility] [place] [address] 07/04/2024 Davey Hoy [facility] [address] [facility] [place] [address] 07/05/2024 Davey Hoy Palpitations R00.2 [facility] [address] [place] [address] 07/05/2024 Davey Hoy Palpitations R00.2 [facility] [address] [place] [address] 07/11/2024 Daevy Hoy [facility] [address] [place] [address] 2024 Davey Hoy [facility] [address] [place] [address] 07/14/2024 Davey Hoy Palpitations R00.2 [facility] [address] [facility] [place] [address] 06/01/2024 Davey Hoy Palpitations R00.2 [facility] [address] [facility] [place] [address] 06/05/2024 Davey Hoy [facility] [address] [facility] [place] [address] 06/06/2024 Davey Hoy Fracture of metatars al bone S92.309A [facility] [address] [facility] [place] [address] 06/07/2024 Davey Hoy Palpitations R00.2 [facility] [address] [facility] [place] [address] 06/19/2024 Davey Hoy Palpitations R00.2 [facility] [address] [place] [address] 06/28/2024 Davey Hoy Palpitations R00.2 [facility] [address] [facility] [place] [address] 05/23/2024 Davey Hoy [facility] [address] [place] [address] 05/23/2024 Davey Hoy [facility] [address] [facility] [place] [address] 05/29/2024 Davey Hoy Palpitations R00.2 a nd Frequency of micturition R35.0 [facility] [address] [place] [address] 05/30/2024 Davey Raulito [facility] [address] [place] [address] 05/30/2024 Davey Cabezas [facility] [address] [place] [address] 06/01/2024 Davey Colemany Palpitations R00.2 [facility] [address] [place] [address] 09/28/2023 Davey Hoy Fatigue R53.83 [facility] [address] [place] [address] 10/26/2023 Davey Raulito [facility] [address] [place] [address] 12/17/2023 Davey Raulito [facility] [address] [place] [address] 01/18/2024 Davey [facility] [address] [place] [address] 04/03/2024 Davey Cabezas [facility] [address] [place] [address] 04/03/2024 Davey Raulito [facility] [address] [place] [address] 09/08/2023 Davey Cabezas [facility] [address] [place] [address] 09/23/2023 Davey Hoy Anemia D64.9 ; Weakn ess R53.1 and B12 deficiency E53.8 Assessments Encounter Date Diagnosis (ICD Code) Assessment [...] Nuclear Test 06/28/2023 CMP (COMPLETE METABOLIC PANEL) CMP (COMPLETE METABOLIC PANEL) CMP (COMPLETE METABOLIC [...] Date [employer] [place] MEDICA[place] [address] [facility] [address] [place] [address] [id number] Esme Reyes Self - patient is the [...]
--- OUTSIDE RECORDS SUMMARY | 2024-08-27 07:47 | XMS_ITS | Encounter Summary ---
Demographics Address [address] [facility] [place] [address] Home Phone Mobile Phone Email Address Preferred Language ENG Marital Status Single Mosque Affiliation Unknown Race White Ethnic Group Not or Lati no Author Organization [facility] Address [address] [place] [address] Care Team Providers Care City Maintenance Manager Name Role Phone Farhat Cabezas MD Primary Care Provider [phone] Farhat Cabezas MD Unavailable [phone] Farhat Cabezas MD Unavailable [phone] Source Comments In the event this information is protected by the Federal Confidentiality of Alcohol and Drug AbusePatient Records regulations: The Federal rules restrict any use of the information to criminally investigate or prosecute any alcohol or drug abuse patient.[facility] Encounter Details Date Type Department Care Team (Late st Contact Info) Description 01/22/2022 Patient Msg Endocrinology [address] [place] [address] Valdez Suarez MD [address] [place] [address] [place] [address] labs and appointment Social History [...] N ot on file 07/19/2021 Data from: https://www.neighborhoodatlas.medicine.[facility]/. Last address used for calculation 102 [...] AM EDT [facility] Endocrinology [address] [place] [address] Greg Nina APRN.MIDDLE SCHOOL COACH [address] [place], [place] [address] diabetes follow up with me in 3 months virtually 09/04/2024 11:30 AM EDT [facility] Gastroenterology [address] [address] Mika Rodgers MD [address] [place] [address] Esophageal stricture [K22.2]Diverticuliti s of colon [K57.32] 11/20/2024 1:00 PM EDT [facility] Endocrinology [address] [place] [address] Valdez Suarez MD [address] [place] [address] [address] [place], [place] [address] follow up in 6 months documented as of this encounter Visit Diagnoses Not on filedocumented in this encounter Care Teams City Maintenance Manager Relationship Specialty Start Date End Date Farhat Cabezas MD PCP - General Family Medicine 01/13/11 Farhat Cabezas MD Referring Family Medicine 01/08/22 Farhat Cabezas MD [address] [place] [address] Referring Family Medicine 07/26/24 documented as of this encounter
--- OUTSIDE RECORDS SUMMARY | 2024-08-27 07:47 | XMS_ITS | Encounter Summary ---
Demographics Address [address] [facility] [place] [address] Home Phone Mobile Phone Email Address Preferred Language ENG Marital Status Single Baptism Affiliation Unknown Race White Ethnic Group Not or Lati no Author Organization [facility] Address [address] [place] [address] Care Team Providers Care Sales Expert Home Theater Name Role Phone Farhat Cabezas MD Primary Care Provider [phone] Farhat Cabezas MD Unavailable [phone] Farhat Cabezas MD Unavailable [phone] Source Comments In the event this information is protected by the Federal Confidentiality of Alcohol and Drug AbusePatient Records regulations: The Federal rules restrict any use of the information to criminally investigate or prosecute any alcohol or drug abuse patient.[facility] Encounter Details Date Type Department Care Team (Late st Contact Info) Description 09/28/2021 Patient Msg Sleep Psychology [address] [place] [address] [place] [address] [facility] [address] [place] [phone] behavioral sleep medicine visit Tues Social History [...] N ot on file 07/19/2021 Data from: https://www.neighborhoodatlas.medicine.[facility]/. Last address used for calculation [address] [...] Assessment Author No 12/14/2016 12:43 PM Mona DbuoseRn) (Hist), RN * Are you blind or [...] Contact Info) Description 08/30/2024 9:30 AM EDT [facility] Endocrinology [address] [place] [address] Greg Nina APRN.LAUNCH ENGINEER [address] [place] [address] diabetes follow up with me in 3 months virtually 09/04/2024 11:30 AM EDT [facility] Gastroenterology [address] [address] Mika Rodgers MD [address] [place] [address] Esophageal stricture [K22.2]Diverticuliti s of colon [K57.32] 11/20/2024 1:00 PM EDT [facility] Endocrinology [address] [place] [address] Valdez Suarez MD [address] [place] [address] [address] [place], [place] [address] follow up in 6 months documented as of this encounter Visit Diagnoses Not on filedocumented in this encounter Care Teams Sales Expert Home Theater Relationship Specialty Start Date End Date Farhat Cabezas MD PCP - General Family Medicine 01/13/11 Farhat Cabezas MD Referring Family Medicine 01/08/22 Farhat Cabezas MD [address] [place] [address] Referring Family Medicine 07/26/24 documented as of this encounter
--- OUTSIDE RECORDS SUMMARY | 2024-08-27 07:47 | XMS_ITS | Encounter Summary ---
Demographics Address [address] [place] [address] Home Phone Mobile Phone Email Address Preferred Language ENG Marital Status Single Faith Affiliation Unknown Race White Ethnic Group Not or Lati no Author Organization [facility] Address [address] [place] [address] Care Team Providers Care Senior Materials Scientist Name Role Phone Farhat Cabezas MD Primary Care Provider [phone] Farhat Cabezas MD Unavailable [phone] Farhat Cabezas MD Unavailable [phone] Source Comments In the event this information is protected by the Federal Confidentiality of Alcohol and Drug AbusePatient Records regulations: The Federal rules restrict any use of the information to criminally investigate or prosecute any alcohol or drug abuse patient.[facility] Encounter Details Date Type Department Care Team (Late st Contact Info) Description 08/06/2020 Abstract General Surgery [address] [place] [address] Rachel Yi MD [address] [place] [address] Social History Tobacco Use Types [...] on file 01/16/2020 Data from: https://www.neighborhoodatlas.medicine.[facility]/. Last address used for calculation Not [...] Description 08/30/2024 9:30 AM EDT [facility] Endocrinology [address] [place] [address] Greg Nina, MARITZA.FINGER LIFT OPERATOR [address] [place] [address] diabetes follow up with me in 3 months virtually 09/04/2024 11:30 AM EDT [facility] Gastroenterology [address] [address] Mika Rodgers MD [address] [place], [place] [address] Esophageal stricture [K22.2]Diverticuliti s of colon [K57.32] 11/20/2024 1:00 PM EDT [facility] Endocrinology [address] [place] [address] Valdez Suarez MD [address] [place] [address] [address] [place], [place] 2974335 follow up in 6 months documented as of this encounter Visit Diagnoses Not on filedocumented in this encounter Care Teams Senior Materials Scientist Relationship Specialty Start Date End Date Farhat Cabezas MD PCP - General Family Medicine 01/13/11 Farhat Cabezas MD Referring Family Medicine 01/08/22 Farhat Cabezas MD [address] [place] [address] Referring Family Medicine 07/26/24 documented as of this encounter
--- OUTSIDE RECORDS SUMMARY | 2024-08-27 07:47 | XMS_ITS | Encounter Summary ---
Author Organization [facility] Address [facility] [place] [address] Care Team Providers Care Construction Electrician Name Role Phone Farhat Cabezas MD Primary Care Provider [phone] Farhat Cabezas MD Unavailable [phone] Farhat Cabezas MD Unavailable [phone] Source Comments In the event this information is protected by the Federal Confidentiality of Alcohol and Drug AbusePatient Records regulations: The Federal rules restrict any use of the information to criminally investigate or prosecute any alcohol or drug abuse patient.[facility] Encounter Details Date Type Department Care Team (Late st Contact Info) Description 10/09/2019 Get Medical Advice General Surgery BMI PSYL [address] [place], [place] [phone] Graciela Hoyt, PhD [address] [place] [phone] RE: Upcoming Appointment Question Social History Tobacco [...] 9:30 AM EDT [facility] Endocrinology [address] [place] [address] Greg Nina APRN.REVENUE ENFORCEMENT AGENT [address] [place] [address] diabetes follow up with me in 3 months virtually 09/04/2024 11:30 AM EDT [facility] Gastroenterology [address] [address] Mika Rodgers MD [address] [place] [address] Esophageal stricture [K22.2]Diverticuliti s of colon [K57.32] 11/20/2024 1:00 PM EDT [facility] Endocrinology [address] [place] [address] Valdez Suarez MD [address] [facility] [address] [place], [place] [address] follow up in 6 months documented as of this encounter Visit Diagnoses Not on filedocumented in this encounter Care Teams Construction Electrician Relationship Specialty Start Date End Date Farhat Cabezas MD PCP - General Family Medicine 01/13/11 Farhat Cabezas MD Referring Family Medicine 01/08/22 Farhat Cabezas MD [address] [place] [address] Referring Family Medicine 07/26/24 documented as of this encounter
--- OUTSIDE RECORDS SUMMARY | 2024-08-27 07:47 | XMS_ITS | Encounter Summary ---
Author Organization [facility] Address [address] [place] [address] Care Team Providers Care Workers Compensation Claims Specialist Name Role Phone Farhat Cabezas MD Primary Care Provider [phone] Farhat Cabezas MD Unavailable [phone] Farhat Cabezas MD Unavailable [phone] Source Comments In the event this [...] for Integrative Med [address] [place] [phone] Provider, [facility] Referral- WELLNESS CONSULT Social History [...] N ot on file 01/16/2020 Data from: https://www.[facility] hospital[facility]las.[facility]/. Last address used for calculation [...] Description 08/30/2024 9:30 AM EDT [facility] Endocrinology [address] [place] [address] Greg Nina APRN.ADMISSIONS EVALUATOR [address] [place] [address] diabetes follow up with me in 3 months virtually 09/04/2024 11:30 AM EDT [facility] Gastroenterology [address] [address] Mika Rodgers MD [address] [place] [address] Esophageal stricture [K22.2]Diverticuliti s of colon [K57.32] 11/20/2024 1:00 PM EDT [facility] Endocrinology [address] [place] [address] Valdez Suarez MD [address] [place] [address] [address] [place], [place] 1410235 follow up in 6 months documented as of this encounter Visit Diagnoses Not on filedocumented in this encounter Care Teams Workers Compensation Claims Specialist Relationship Specialty Start Date End Date Farhat Cabezas MD PCP - General Family Medicine 01/13/11 Farhat Cabezas MD Referring Family Medicine 01/08/[address] [facility] [place] [address] Referring Family Medicine 07/26/24 documented as of this encounter
--- OUTSIDE RECORDS SUMMARY | 2024-08-27 07:47 | XMS_ITS | Encounter Summary ---
Demographics Address [address] [place] [address] Home Phone Mobile Phone Email Address Preferred Language ENG Marital Status Single Hinduism Affiliation Unknown Race White Ethnic Group Not or Lati no Author Organization [facility] Address [address] [place] [address] Care Team Providers Care Plumbing Mechanic Name Role Phone Farhat Cabezas MD Primary Care Provider [phone] Farhat Cabezas MD Unavailable [phone] Farhat Cabezas MD Unavailable [phone] Source Comments In the event this information is protected by the Federal Confidentiality of Alcohol and Drug AbusePatient Records regulations: The Federal rules restrict any use of the information to criminally investigate or prosecute any alcohol or drug abuse patient.[facility] Encounter Details Date Type Department Care Team (Late st Contact Info) Description 11/04/2020 Patient [facility] Wellness [address] [place] [address] Mustapha Branch MD [address] [place] [address] Comment Social History Tobacco Use [...] file 01/16/2020 Data from: https://www.neighborhoodatlas.medicine.[facility]/. Last address used for calculation Not on [...] AM EDT [facility] Endocrinology [address] [place] [address] Greg Nina APRN.LIQUEFACTION PLANT OPERATOR [address] [place] [address] diabetes follow up with me in 3 months virtually 09/04/2024 11:30 AM EDT [facility] Gastroenterology [address] [address] Mika Rodgers MD [address] [place] [address] Esophageal stricture [K22.2]Diverticuliti s of colon [K57.32] 11/20/2024 1:00 PM EDT [facility] Endocrinology [address] [place] [address] Valdez Suarez MD [address] [place] [address] [address] [place], [place] [address] follow up in 6 months documented as of this encounter Visit Diagnoses Not on filedocumented in this encounter Care Teams Plumbing Mechanic Relationship Specialty Start Date End Date Farhat Cabezas MD PCP - General Family Medicine 01/13/11 Farhat Cabezas MD Referring Family Medicine 01/08/22 Farhat Cabezas MD [address] [place] [address] Referring Family Medicine 07/26/24 documented as of this encounter
--- OUTSIDE RECORDS SUMMARY | 2024-08-27 07:47 | XMS_ITS | Encounter Summary ---
Demographics Address [address] [place] [address] Home Phone Mobile Phone Email Address Preferred Language ENG Marital Status Single Bahai Affiliation Unknown Race White Ethnic Group Not or Lati no Author Organization [facility] Address [address] [place] [address] Care Team Providers Care Senior Shipping Clerk Name Role Phone Farhat Cabezas MD Primary Care Provider [phone] Farhat Cabezas MD Unavailable [phone] Farhat Cabezas MD Unavailable [phone] Source Comments In the event this information is protected by the Federal Confidentiality of Alcohol and Drug AbusePatient Records regulations: The Federal rules restrict any use of the information to criminally investigate or prosecute any alcohol or drug abuse patient.[facility] Encounter Details Date Type Department Care Team (Late st Contact Info) Description 02/22/2020 Get Medical Advice [facility] REJ [address] [place], [place] [phone] Rachel Yi MD [address] [place] [address] RE: Medication Question (Not Renewal) [...] N ot on file 01/16/2020 Data from: https://www.neighborhoodatlas.medicine.[facility]/. Last address [...] Entry Date Author No 12/14/2016 12:43 PM Moan DuboseRn) (Hist), RN documented in this encounter Plan of Treatment Upcoming Encounters Date Type Department Care Team (Late st Contact Info) Description 08/30/2024 9:30 AM EDT [facility] Endocrinology [address] [place] [address] Greg Nina APRN.SALVAGER HELPER [address] [place] [address] diabetes follow up with me in 3 months virtually 09/04/2024 11:30 AM EDT [facility] Gastroenterology [address] [place] [address] Mika Rodgers MD [address] [place] [address] Esophageal stricture [K22.2]Diverticuliti s of colon [K57.32] 11/20/2024 1:00 PM EDT [facility] Endocrinology [address] [place] [address] Valdez Suarez MD [address] [place] [address] [place] [address] follow up in 6 months documented as of this encounter Visit Diagnoses Not on filedocumented in this encounter Care Teams Senior Shipping Clerk Relationship Specialty Start Date End Date Farhat Cabezas MD PCP - General Family Medicine 01/13/11 Farhat Cabezas MD Referring Family Medicine 01/08/22 Farhat Cabezas MD [address] [place] [address] Referring Family Medicine 07/26/24 documented as of this encounter
--- OUTSIDE RECORDS SUMMARY | 2024-08-27 07:47 | XMS_ITS | Encounter Summary ---
Demographics Address [address] [address] Home Phone Mobile Phone Email Address Preferred Language ENG Marital Status Single Restorationist Affiliation Unknown Race White Ethnic Group Not or Lati no Author Organization [facility] Address [address] [place] [address] Care Team Providers Care Coin Wrapping Machine Operator Name Role Phone Farhat Cabezas MD Primary Care Provider [phone] Farhat Cabezas MD Unavailable [phone] Farhat Cabezas MD Unavailable [phone] Source Comments In the event this information is protected by the Federal Confidentiality of Alcohol and Drug AbusePatient Records regulations: The Federal rules restrict any use of the information to criminally investigate or prosecute any alcohol or drug abuse patient.[facility] Encounter Details Date Type Department Care Team (Late st Contact Info) Description 03/31/2022 Patient Msg Neurology [address] [place] [phone] Provider, Ccf refills Social History Tobacco Use [...] N ot on file 02/25/2022 Data from: https://www.neighborhoodatlas.[facility]/. Last address used for calculation [address] [facility] 02/25/2022 Comments No Sex and Gender [...] EDT [facility] Endocrinology [address] [place] [address] Greg Nina APRN.ASSISTANT SERVICE MANAGER [address] [place], [place] [phone] diabetes follow up with me in 3 months virtually 09/04/2024 11:30 AM EDT [facility] Gastroenterology [address] [address] Mika Rodgers MD [address]654 [place] [address] Esophageal stricture [K22.2]Diverticuliti s of colon [K57.32] 11/20/2024 1:00 PM EDT [facility] Endocrinology [address] [place] [address] Valdez Suarez MD [address] [facility] [address] [place], [place] [address] follow up in 6 months documented as of this encounter Visit Diagnoses Not on filedocumented in this encounter Care Teams Coin Wrapping Machine Operator Relationship Specialty Start Date End Date Farhat Cabezas MD PCP - General Family Medicine 01/13/11 Farhat Cabezas MD Referring Family Medicine 01/08/22 Farhat Cabezas MD [address] [place] [address] Referring Family Medicine 07/26/24 documented as of this encounter
--- OUTSIDE RECORDS SUMMARY | 2024-08-27 07:47 | XMS_ITS | Encounter Summary ---
Demographics Address [address] [place] [address] Home Phone Mobile Phone Email Address Preferred Language ENG Marital Status Single Baptist Affiliation Unknown Race White Ethnic Group Not or Lati no Author Organization [facility] Address [address] [place] [address] Care Team Providers Care Certified Green Building Engineer Name Role Phone Farhat Cabezas MD Primary Care Provider [phone] Farhat Cabezas MD Unavailable [phone] Farhat Cabezas MD Unavailable [phone] Source Comments In the event this information is protected by the Federal Confidentiality of Alcohol and Drug AbusePatient Records regulations: The Federal rules restrict any use of the information to criminally investigate or prosecute any alcohol or drug abuse patient.[facility] Encounter Details Date Type Department Care Team (Late st Contact Info) Description 04/18/[address] [facility] REJ [address] [place], [place] [phone] Rachel Yi MD 950 [place] [address] RE: Test Result Question Social [...] N ot on file 01/16/2020 Data from: https://www.neighborhoodatlas.medicine.[facility]/. Last address used for [...] 08/30/2024 9:30 AM EDT [facility] Endocrinology [address] [place] [address] Greg Nina APRN.RN BSN [address] [place], [place] 3574739 diabetes follow up with me in 3 months virtually 09/04/2024 11:30 AM EDT [facility] Gastroenterology [address] [address] Mika Rodgers MD 9500 [place] [address] Esophageal stricture [K22.2]Diverticuliti s of colon [K57.32] 11/20/2024 1:00 PM EDT [facility] Endocrinology [address] [place] [address] Valdez Suarez MD [address] [place] [address] [place], [place] 6954235 follow up in 6 months documented as of this encounter Visit Diagnoses Not on filedocumented in this encounter Care Teams Certified Green Building Engineer Relationship Specialty Start Date End Date Farhat Cabezas MD PCP - General Family Medicine 01/13/11 Farhat Cabezas MD Referring Family Medicine 01/08/22 Farhat Cabezas MD [address] [place] [address] Referring Family Medicine 07/26/24 documented as of this encounter
--- OUTSIDE RECORDS SUMMARY | 2024-08-27 07:47 | XMS_ITS | Encounter Summary ---
Author Organization [facility] Address [address] [place] [address] Care Team Providers Care Leather Production Machine Operator Name Role Phone Farhat Cabezas MD Primary Care Provider [phone] Farhat Cabezas MD Unavailable [phone] Farhat Cabezas MD Unavailable [phone] Source Comments In the event this information is protected by the Federal Confidentiality of Alcohol and Drug AbusePatient Records regulations: The Federal rules restrict any use of the information to criminally investigate or prosecute any alcohol or drug abuse patient.[facility] Encounter Details Date Type Department Care Team (Late st Contact Info) Description 03/14/2020 Patient Msg Family Medicine [address] [place], [place] [phone] Provider, Ccf Appointment Request Social History Tobacco [...] on file 01/16/2020 Data from: https://www.neighborhoodatlas.[facility]/. Last address used for calculation Not [...] 08/30/2024 9:30 AM EDT [facility] Endocrinology [address] [place] [address] Greg Nina APRN.RIGHT OF WAY MAN [address] [place] [address] diabetes follow up with me in 3 months virtually 09/04/2024 11:30 AM EDT [facility] Gastroenter[facility] [address] [address] Mika Rodgers MD [address] [place] [address] Esophageal stricture [K22.2]Diverticuliti s of colon [K57.32] 11/20/2024 1:00 PM EDT [facility] Endocrinology [address] [place] [address] Valdez Suarez MD [address] [facility] [address] [place], [place] 0477835 follow up in 6 months documented as of this encounter Visit Diagnoses Not on filedocumented in this encounter Care Teams Leather Production Machine Operator Relationship Specialty Start Date End Date Farhat Cabezas MD PCP - General Family Medicine 01/13/11 Farhat Cabezas MD Referring Family Medicine 01/08/22 Farhat Cabezas MD 1265 [place] [address] Referring Family Medicine 07/26/24 documented as of this encounter
--- OUTSIDE RECORDS SUMMARY | 2024-08-27 07:47 | XMS_ITS | Encounter Summary ---
Demographics Address [address] [facility] [place] [address] Home Phone Mobile Phone Email Address Preferred Language ENG Marital Status Single Hinduism Affiliation Unknown Race White Ethnic Group Not or Lati no Author Organization [facility] Address [address] [place] [address] Care Team Providers Care Client Strategist Name Role Phone Farhat Cabezas MD Primary Care Provider [phone] Farhat Cabezas MD Unavailable [phone] Farhat Cabezas MD Unavailable [phone] Source Comments In the event this information is protected by the Federal Confidentiality of Alcohol and Drug AbusePatient Records regulations: The Federal rules restrict any use of the information to criminally investigate or prosecute any alcohol or drug abuse patient.[facility] Encounter Details Date Type Department Care Team (Late st Contact Info) Description 12/12/2021 Get Medical Advice Neurology [address] [place] [address] Mahogany Reyes, SUPERVISOR DETASSELING CREW.MARKETING REP 9500 [place] [address] Refill 10mg Social History Tobacco [...] N ot on file 07/19/2021 Data from: https://www.neighborhoodatlas.medicine.[facility]/. Last address used for [...] Cerda RN - 12/12/2021 2:33 PM EDT [employer] message sent documented in this encounter Plan of Treatment Upcoming Encounters Date Type Department Care Team (Late st Contact Info) Description 08/30/2024 9:30 AM EDT [facility] Endocrinology [address] [place] [address] Greg Nina APRN.MARKETING REP [address] [place] [address] diabetes follow up with me in 3 months virtually 09/04/2024 11:30 AM EDT [facility] Gastroenterology [address] [address] Mika Rodgers MD 9500 [place], [place] 8675795 Esophageal stricture [K22.2]Diverticuliti s of colon [K57.32] 11/20/2024 1:00 PM EDT [facility] Endocrinology [address] [place] [address] Valdez Suarez MD [address] [place] [address] [address] [place], [place] 3045035 follow up in 6 months documented as of this encounter Visit Diagnoses Not on filedocumented in this encounter Care Teams Client Strategist Relationship Specialty Start Date End Date Farhat Cabezas MD PCP - General Family Medicine 01/13/11 Farhat Cabezas MD Referring Family Medicine 01/08/22 Farhat Cabezas MD 1265 [place] [address] Referring Family Medicine 07/26/24 documented as of this encounter
--- OUTSIDE RECORDS SUMMARY | 2024-08-27 07:47 | XMS_ITS | Encounter Summary ---
Author Organization [facility] Address [address] [place] [address] Care Team Providers Care Dispenser Operator Name Role Phone Farhat Cabezas MD Primary Care Provider [phone] Farhat Cabezas MD Unavailable [phone] Farhat Cabezas MD Unavailable [phone] Source Comments In the event this information is protected by the Federal Confidentiality of Alcohol and Drug AbusePatient Records regulations: The Federal rules restrict any use of the information to criminally investigate or prosecute any alcohol or drug abuse patient.[facility] Encounter Details Date Type Department Care Team (Late st Contact Info) Description 10/05/2019 Patient Msg Family Medicine [address] [place], [place] [phone] Provider, Ccf Appointments Requested Social History Tobacco [...] [facility] Endocrinology [address] [place] [address] Greg Nina APRN.SENIOR MARKETING ANALYST [address] [place], [place] 0904139 diabetes follow up with me in 3 months virtually 09/04/2024 11:30 AM EDT [facility] Gastroenterology [address] [address] Mika Rodgers MD 0520 [place] [address] Esophageal stricture [K22.2]Diverticuliti s of colon [K57.32] 11/20/2024 1:00 PM EDT [facility] Endocrinology [address] [place] [address] Valdez Suarez MD [address] [place] [address] [place] [address] follow up in 6 months documented as of this encounter Visit Diagnoses Not on filedocumented in this encounter Care Teams Dispenser Operator Relationship Specialty Start Date End Date Farhat Cabezas MD PCP - General Family Medicine 01/13/11 Farhat Cabezas MD Referring Family Medicine 01/08/22 Farhat Cabezas MD [address] [place] [address] Referring Family Medicine 07/26/24 documented as of this encounter
--- OUTSIDE RECORDS SUMMARY | 2024-08-27 07:47 | XMS_ITS | Encounter Summary ---
Demographics Address [address] [place] [address] Home Phone Mobile Phone Email Address Preferred Language ENG Marital Status Single Advent Affiliation Unknown Race White Ethnic Group Not or Lati no Author Organization [facility] Address [address] [place] [address] Care Team Providers Care Door Patcher Name Role Phone Farhat Cabezas MD Primary Care Provider [phone] Farhat Cabezas MD Unavailable [phone] Farhat Cabezas MD Unavailable [phone] Source Comments In the event this information is protected by the Federal Confidentiality of Alcohol and Drug AbusePatient Records regulations: The Federal rules restrict any use of the information to criminally investigate or prosecute any alcohol or drug abuse patient.[facility] Encounter Details Date Type Department Care Team (Late st Contact Info) Description 12/18/2019 Get Medical Advice [facility] REJ [address] [place], [place] [phone] Rachel Yi MD 9502 [place] [address] RE: Visit Follow Up Question [...] AM EDT [facility] Endocrinology [address] [place] [address] Greg Nina APRN.SEED SORTER [address] [place] [address] diabetes follow up with me in 3 months virtually 09/04/2024 11:30 AM EDT [facility] Gastroenterology [address] [address] Mika Rodgers MD [address] [facility] [address] Esophageal stricture [K22.2]Diverticuliti s of colon [K57.32] 11/20/2024 1:00 PM EDT [facility] Endocrinology [address] [place] [address] Valdez Suarez MD [address] [place] [address] [address] [place], [place] 7956735 follow up in 6 months documented as of this encounter Visit Diagnoses Not on filedocumented in this encounter Care Teams Door Patcher Relationship Specialty Start Date End Date Farhat Cabezas MD PCP - General Family Medicine 01/13/11 Farhat Cabezas MD Referring Family Medicine 01/08/22 Farhat Cabezas MD 1265 [place] [address] Referring Family Medicine 07/26/24 documented as of this encounter
--- OUTSIDE RECORDS SUMMARY | 2024-08-27 07:47 | XMS_ITS | Encounter Summary ---
Author Organization [facility] Address [address] [place] [address] Care Team Providers Care Sonography Technologist Name Role Phone Farhat Cabezas MD Primary Care Provider [phone] Farhat Cabezas MD Unavailable [phone] Farhat Cabezas MD Unavailable [phone] Source Comments In the event this information is protected by the Federal Confidentiality of Alcohol and Drug AbusePatient Records regulations: The Federal rules restrict any use of the information to criminally investigate or prosecute any alcohol or drug abuse patient.[facility] Encounter Details Date Type Department Care Team (Late st Contact Info) Description 12/18/2019 Get Medical Advice [facility] REJ [address] [place], [place] [phone] Rachel Yi MD 9506 [place] [address] RE: Non-Urgent Medical Question Social [...] 9:30 AM EDT [facility] Endocrinology [address] [place] [address] Greg Nina APRN.DIRECTOR PATIENT ACCOUNTING [address] [place], [place] 0608639 diabetes follow up with me in 3 months virtually 09/04/2024 11:30 AM EDT [facility] Gastroenterology [address] [address] Mika Rodgers MD 0289 [place] [address] Esophageal stricture [K22.2]Diverticuliti s of colon [K57.32] 11/20/2024 1:00 PM EDT [facility] Endocrinology [address] [place] [address] Valdez Suarez MD [address] [place] [address] [place] [address] follow up in 6 months documented as of this encounter Visit Diagnoses Not on filedocumented in this encounter Care Teams Sonography Technologist Relationship Specialty Start Date End Date Farhat Cabezas MD PCP - General Family Medicine 01/13/11 Farhat Cabezas MD Referring Family Medicine 01/08/22 Farhat Cabezas MD 1265 [place] [address] Referring Family Medicine 07/26/24 documented as of this encounter
--- OUTSIDE RECORDS SUMMARY | 2024-08-27 07:47 | XMS_ITS | Encounter Summary ---
Author Organization [facility] Address [address] [place] [address] Care Team Providers Care Compo Caster Name Role Phone Farhat Cabezas MD Primary Care Provider [phone] Farhat Cabezas MD Unavailable [phone] Farhat Cabezas MD Unavailable [phone] Source Comments In the event this information is protected by the Federal Confidentiality of Alcohol and Drug AbusePatient Records regulations: The Federal rules restrict any use of the information to criminally investigate or prosecute any alcohol or drug abuse patient.[facility] Encounter Details Date Type Department Care Team (Late st Contact Info) Description 10/12/2019 Patient Msg General Surgery BMI PSYL [address] [place], [place] [phone] Graciela Hoyt, PhD [address] [place] [phone] OCD specialists Social History Tobacco Use Types [...] EDT [facility] Endocrinology [address] [place] [address] Greg Nina APRN.DRAFTER ELECTRONIC [address] [place], [place] 0460639 diabetes follow up with me in 3 months virtually 09/04/2024 11:30 AM EDT [facility] Gastroenterology [address] [address] Mika Rodgers MD [address] [place] [address] Esophageal stricture [K22.2]Diverticuliti s of colon [K57.32] 11/20/2024 1:00 PM EDT [facility] Endocrinology [address] [place] [address] Valdez Suarez MD [address] [facility] [address] [place], [place] 2318835 follow up in 6 months documented as of this encounter Visit Diagnoses Not on filedocumented in this encounter Care Teams Compo Caster Relationship Specialty Start Date End Date Farhat Cabezas MD PCP - General Family Medicine 01/13/11 Farhat Cabezas MD Referring Family Medicine 01/08/22 Farhat Cabezas MD 1265 [place] [address] Referring Family Medicine 07/26/24 documented as of this encounter
--- OUTSIDE RECORDS SUMMARY | 2024-08-27 07:47 | XMS_ITS | Encounter Summary ---
Demographics Address [address] [place] [address] Home Phone Mobile Phone Email Address Preferred Language ENG Marital Status Single Yarsani Affiliation Unknown Race White Ethnic Group Not or Lati no Author Organization [facility] Address [address] [place] [address] Care Team Providers Care Property Preservation Specialist Name Role Phone Farhat Cabezas MD Primary Care Provider [phone] Farhat Cabezas MD Unavailable [phone] Farhat Cabezas MD Unavailable [phone] Source Comments In the event this information is protected by the Federal Confidentiality of Alcohol and Drug AbusePatient Records regulations: The Federal rules restrict any use of the information to criminally investigate or prosecute any alcohol or drug abuse patient.[facility] Encounter Details Date Type Department Care Team (Late st Contact Info) Description 04/09/2020 Get Medical Advice General Surgery 9300 [place] [address] Rachel Yi MD 4468 [place] [address] RE: Upcoming Appointment Question Social [...] N ot on file 01/16/2020 Data from: https://www.neighborhoodatlas.medicine.[facility]/. Last address used [...] 08/30/2024 9:30 AM EDT [facility] Endocrinology [address] [place] [address] Greg Nina, MARITZA.RACING SECRETARY AND HANDICAPPER [address] [place], [place] 9569739 diabetes follow up with me in 3 months virtually 09/04/2024 11:30 AM EDT [facility] Gastroenterology [address] [address] Mika Rodgers MD 9500 [place] [address] Esophageal stricture [K22.2]Diverticuliti s of colon [K57.32] 11/20/2024 1:00 PM EDT [facility] Endocrinology [address] [place] [address] Valdez Suarez MD [address] [place] [address] [address] [place], [place] 6456735 follow up in 6 months documented as of this encounter Visit Diagnoses Not on filedocumented in this encounter Care Teams Property Preservation Specialist Relationship Specialty Start Date End Date Farhat Cabezas MD PCP - General Family Medicine 01/13/11 Farhat Cabezas MD Referring Family Medicine 01/08/22 Farhat Cabezas MD [address] [place] [address] Referring Family Medicine 07/26/24 documented as of this encounter
--- OUTSIDE RECORDS SUMMARY | 2024-08-27 07:47 | XMS_ITS | Encounter Summary ---
Demographics Address [address] [place] [address] Home Phone Mobile Phone Email Address Preferred Language ENG Marital Status Single Presybeterian Affiliation Unknown Race White Ethnic Group Not or Lati no Author Organization [facility] Address [address] [place] [address] Care Team Providers Care Decorative Engraver Apprentice Name Role Phone Jacob Santillan MD Primary Care Provider [phone] Farhat Cabezas MD Primary Care Provider [phone] Farhat Cabezas MD Unavailable [phone] Farhat Cabezas MD Unavailable [phone] Source Comments In the event this information is protected by the Federal Confidentiality of Alcohol and Drug AbusePatient Records regulations: The Federal rules restrict any use of the information to criminally investigate or prosecute any alcohol or drug abuse patient.[facility] Reason for Visit * Reason Comments Outside Lab Results [facility] 05/09/08 Encounter Details Date Type Department Care Team (Late st Contact Info) Description 05/14/2008 Abstract Rheumatology [address] [place] [address] Zabrina Culver MD [address] [place] [address] Outside Lab Results ([facility] 05/09/08) Social History Tobacco Use [...] 9:30 AM EDT [facility] Endocrinology [address] [place] [address] Greg Nina APRN.RUBBER STAMP MAKER [address] [place] [address] diabetes follow up with me in 3 months virtually 09/04/2024 11:30 AM EDT [facility] Gastroenterology [address] [address] Mika Rodgers MD 9500 [place], [place] 71865[address] Esophageal stricture [K22.2]Diverticuliti s of colon [K57.32] 11/20/2024 1:00 PM EDT [facility] Endocrinology [address] [place] [address] Valdez Suarez MD [address] [place] [address] [place], [place] 48246[address] follow up in 6 months documented as of this encounter Visit Diagnoses Not on filedocumented in this encounter Care Teams Decorative Engraver Apprentice Relationship Specialty Start Date End Date Jacob Santillan MD PCP - General 08/05/05 01/12/11 Farhat Cabezas MD PCP - General Family Medicine 01/13/11 Farhat Cabezas MD Referring Family Medicine 01/08/22 Farhat Cabezas MD [address] [place] 8095111 Referring Family Medicine 07/26/24 documented as of this encounter
--- OUTSIDE RECORDS SUMMARY | 2024-08-27 07:47 | XMS_ITS | Encounter Summary ---
Author Organization [facility] Address [address] [place] [address] Care Team Providers Care Buyer Liaison Name Role Phone Farhat Cabezas MD Primary Care Provider [phone] Farhat Cabezas MD Unavailable [phone] Farhat Cabezas MD Unavailable [phone] Source Comments In the event this information is protected by the Federal Confidentiality of Alcohol and Drug AbusePatient Records regulations: The Federal rules restrict any use of the information to criminally investigate or prosecute any alcohol or drug abuse patient.[facility] Encounter Details Date Type Department Care Team (Late st Contact Info) Description 08/05/2019 Patient Msg Family Medicine [address] [place], [place] [phone] Provider, Ccf Appointment Needed! Social History Tobacco [...] 9:30 AM EDT [facility] Endocrinology [address] [place] [address] Greg Nina APRN.GRAVITY MANAGER [address] [place], [place] 2415139 diabetes follow up with me in 3 months virtually 09/04/2024 11:30 AM EDT [facility] Gastroenterology [address] [address] Mika Rodgers MD 3832 [place] [address] Esophageal stricture [K22.2]Diverticuliti s of colon [K57.32] 11/20/2024 1:00 PM EDT [facility] Endocrinology [address] [place] [address] Valdez Suarez MD [address] [place] [address] [place] [address] follow up in 6 months documented as of this encounter Visit Diagnoses Not on filedocumented in this encounter Care Teams Buyer Liaison Relationship Specialty Start Date End Date Farhat Cabezas MD PCP - General Family Medicine 01/13/11 Farhat Cabezas MD Referring Family Medicine 01/08/22 Farhat Cabezas MD [address] [place] [address] Referring Family Medicine 07/26/24 documented as of this encounter
--- OUTSIDE RECORDS SUMMARY | 2024-08-27 07:47 | XMS_ITS | Encounter Summary ---
Author Organization [facility] Address [address] [place] [address] Care Team Providers Care Geospatial Information Technologist Name Role Phone Jacob Santillan MD Primary Care Provider [phone] Farhat Cabezas MD Primary Care Provider [phone] Farhat Cabezas MD Unavailable [phone] Farhat Cabezas MD Unavailable [phone] Source Comments In the event this information is protected by the Federal Confidentiality of Alcohol and Drug AbusePatient Records regulations: The Federal rules restrict any use of the information to criminally investigate or prosecute any alcohol or drug abuse patient.[facility] Encounter Details Date Type Department Care Team ([facility] Contact Info) Description 10/18/2008 Patient Msg Medical Records 9500 [place] [address] Provider, Ccf Patient Registration Social History Tobacco [...] Upcoming Encounters Date Type Department Care Team ([facility] Contact Info) Description 08/30/2024 9:30 AM EDT [facility] Endocrinology [address] [place] [address] Greg Nina APRN.PARKING LOT SUPERVISOR [address] [place] [address] diabetes follow up with me in 3 months virtually 09/04/2024 11:30 AM EDT [facility] Gastroenterology [address] [address] Mika Rodgers MD 9500 [place], [place] 2947695 Esophageal stricture [K22.2]Diverticuliti s of colon [K57.32] 11/20/2024 1:00 PM EDT [facility] Endocrinology [address] [place] [address] Valdez Suarez MD [address] [place] [address] [address] [place], [place] [address] follow up in 6 months documented as of this encounter Visit Diagnoses Not on filedocumented in this encounter Care Teams Geospatial Information Technologist Relationship Specialty Start Date End Date Jacob Santillan MD PCP - General 08/05/05 01/12/11 Farhat Cabezas MD PCP - General Family Medicine 01/13/11 Farhat Cabezas MD Referring Family Medicine 01/08/22 Farhat Cabezas MD [address] [place] [address] Referring Family Medicine 07/26/24 documented as of this encounter
--- OUTSIDE RECORDS SUMMARY | 2024-08-27 07:47 | XMS_ITS | Encounter Summary ---
Demographics Address [address] [facility] [place] [address] Home Phone Mobile Phone Email Address [email or web address] Preferred Language ENG Marital Status Single Congregation Affiliation Unknown Race White Ethnic Group Not or Lati no Author Organization [facility] Address [address] [place] [address] Care Team Providers Care Compliance Administrator Name Role Phone Farhat Cabezas MD Primary Care Provider [phone] Farhat Cabezas MD Unavailable [phone] Farhat Cabezas MD Unavailable [phone] Source Comments In the event this information is protected by the Federal Confidentiality of Alcohol and Drug AbusePatient Records regulations: The Federal rules restrict any use of the information to criminally investigate or prosecute any alcohol or drug abuse patient.[facility] Encounter Details Date Type Department Care Team (Late st Contact Info) Description 10/23/2020 Patient Msg Pre Anesthesia [address] [place], [place] [phone] Dunia Pickett PA-C [address] [place], [place] [phone] Preop Instructions Social History Tobacco Use Types [...] on file 01/16/2020 Data from: https://www.neighborhoodatlas.medicine.[facility].edu/. Last address used for calculation Not [...] AM EDT [facility] Endocrinology [address] [place] [address] Greg Nina, MARITZA.DREDGE WORKER [address] [place], [place] [phone] diabetes follow up with me in 3 months virtually 09/04/2024 11:30 AM EDT [facility] Gastroenterology [address] [address] Mika Rodgers MD 9500 [place] [address] Esophageal stricture [K22.2]Diverticuliti s of colon [K57.32] 11/20/2024 1:00 PM EDT [facility] Endocrinology [address] [place] [address] Valdze Suarez MD [address] [place] [address] [address] [place], [place] 8374435 follow up in 6 months documented as of this encounter Visit Diagnoses Not on filedocumented in this encounter Care Teams Compliance Administrator Relationship Specialty Start Date End Date Farhat Cabezas MD PCP - General Family Medicine 01/13/11 Farhat Cabezas MD Referring Family Medicine 01/08/22 Farhat Cabezas MD [address] [place] [address] Referring Family Medicine 07/26/24 documented as of this encounter
--- OUTSIDE RECORDS SUMMARY | 2024-08-27 07:47 | XMS_ITS | Encounter Summary ---
Author Organization [facility] Address [address] [place] [address] Care Team Providers Care Stitchdowns Toe Former Name Role Phone Farhat Cabezas MD Primary Care Provider [phone] Farhat Cabezas MD Unavailable [phone] Farhat Cabezas MD Unavailable [phone] Source Comments In the event this information is protected by the Federal Confidentiality of Alcohol and Drug AbusePatient Records regulations: The Federal rules restrict any use of the information to criminally investigate or prosecute any alcohol or drug abuse patient.[facility] Encounter Details Date Type Department Care Team (Late st Contact Info) Description 05/09/2019 Patient Msg Family Medicine [address] [place], [place] [phone] Provider, Ccpiero *Appointment Changes* Social History Tobacco [...] 9:[address] [facility] Endocrinology [address] [place] [address] Greg iNna APRN.PRODUCT SAFETY LEAD [address] [place] [address] diabetes follow up with me in 3 months virtually 09/04/2024 11:[address] [facility] Gastroenterology [address] [address] Mika Rodgers MD 4040 [place] [address] Esophageal stricture [K22.2]Diverticuliti s of colon [K57.32] 11/20/2024 1:[address] [facility] Endocrinology [address] [place] [address] Valdez Suarez MD [address] [place] [address] [address] [place], [place] [phone] follow up in 6 months documented as of this encounter Visit Diagnoses Not on filedocumented in this encounter Care Teams Stitchdowns Toe Former Relationship Specialty Start Date End Date Farhat Cabezas MD PCP - General Family Medicine 01/13/11 Farhat Cabezas MD Referring Family Medicine 01/08/22 Farhat Cabezas MD [address] [place] [address] Referring Family Medicine 07/26/24 documented as of this encounter
--- OUTSIDE RECORDS SUMMARY | 2024-08-27 07:47 | XMS_ITS | Encounter Summary ---
Author Organization [facility] Address [facility] [place] [address] Care Team Providers Care Drug Clerk Name Role Phone Farhat Cabezas MD Primary Care Provider [phone] Farhat Cabezas MD Unavailable [phone] Farhat Cabezas MD Unavailable [phone] Source Comments In the event this information is protected by the Federal Confidentiality of Alcohol and Drug AbusePatient Records regulations: The Federal rules restrict any use of the information to criminally investigate or prosecute any alcohol or drug abuse patient.[facility] Encounter Details Date Type Department Care Team (Late st Contact Info) Description 12/18/2019 Get Medical Advice General Surgery BMI PSYL [address] [place], [place] [phone] Graciela Hoyt, PhD [address] [place] [phone] RE: Visit Follow Up Question Social History [...] 08/30/2024 9:30 AM EDT [facility] Endocrinology [address] [place] [address] Greg Nina APRN.WHARF ATTENDANT [address] [place] [address] diabetes follow up with me in 3 months virtually 09/04/2024 11:30 AM EDT [facility] Gastroenterology [address] [address] Mika Rodgers MD 3351 [place] [address] Esophageal stricture [K22.2]Diverticuliti s of colon [K57.32] 11/20/2024 1:[address] [facility] Endocrinology [address] [place] [address] Valdez Suarez MD [address] [place] [address] [address] [place], [place] [phone] follow up in 6 months documented as of this encounter Visit Diagnoses Not on filedocumented in this encounter Care Teams Drug Clerk Relationship Specialty Start Date End Date Farhat Cabezas MD PCP - General Family Medicine 01/13/11 Farhat Cabezas MD Referring Family Medicine 01/08/22 Farhat Cabezas MD [address] [place] [address] Referring Family Medicine 07/26/24 documented as of this encounter
--- OUTSIDE RECORDS SUMMARY | 2024-08-27 07:47 | XMS_ITS | Encounter Summary ---
Demographics Address [address] [place] [address] Home Phone Mobile Phone Email Address Preferred Language ENG Marital Status Single Druze Affiliation Unknown Race White Ethnic Group Not or Lati no Author Organization [facility] Address [address] [place] [address] Care Team Providers Care Energy Conservation Representative Name Role Phone Farhat Cabezas MD Primary Care Provider [phone] Farhat Cabezas MD Unavailable [phone] Farhat Cabezas MD Unavailable [phone] Source Comments In the event this information is protected by the Federal Confidentiality of Alcohol and Drug AbusePatient Records regulations: The Federal rules restrict any use of the information to criminally investigate or prosecute any alcohol or drug abuse patient.[facility] Encounter Details Date Type Department Care Team (Late st Contact Info) Description 08/12/2020 Get Medical Advice [facility] REJ [address] [place], [place] 7180011 Rachel Yi MD 9502 [place] [address] RE: Visit Follow Up Question [...] N ot on file 01/16/2020 Data from: https://www.neighborhoodatlas.medicine.[facility]/. Last address used for calculation Not [...] AM EDT [facility] Endocrinology [address] [place] [address] Greg Nina APRN.PACKAGING COORDINATOR [address] [place], [place] [phone] diabetes follow up with me in 3 months virtually 09/04/2024 11:[address] [facility] Gastroenterology [address] [address] Mika Rodgers MD 9500 [place] [address] Esophageal stricture [K22.2]Diverticuliti s of colon [K57.32] 11/20/2024 1:[address] [facility] Endocrinology [address] [place] [address] Valdez Suarez MD [address] [place] [address] [address] [place], [place] 0818935 follow up in 6 months documented as of this encounter Visit Diagnoses Not on filedocumented in this encounter Care Teams Energy Conservation Representative Relationship Specialty Start Date End Date Farhat Cabezas MD PCP - General Family Medicine 01/13/11 Farhat Cabezas MD Referring Family Medicine 01/08/22 Farhat Cabezas MD [address] [place] [address] Referring Family Medicine 07/26/24 documented as of this encounter
--- OUTSIDE RECORDS SUMMARY | 2024-08-27 07:47 | XMS_ITS | Encounter Summary ---
Demographics Address [address] [facility] [place] [address] Home Phone Mobile Phone Email Address Preferred Language ENG Marital Status Single Jainism Affiliation Unknown Race White Ethnic Group Not or Lati no Author Organization [facility] Address [address] [place] [address] Care Team Providers Care Conformal Pad Former Name Role Phone Farhat Cabezas MD Primary Care Provider [phone] Farhat Cabezas MD Unavailable [phone] Farhat Cabezas MD Unavailable [phone] Source Comments In the event this information is protected by the Federal Confidentiality of Alcohol and Drug AbusePatient Records regulations: The Federal rules restrict any use of the information to criminally investigate or prosecute any alcohol or drug abuse patient.[facility] Encounter Details Date Type Department Care Team (Late st Contact Info) Description 04/14/2023 Get Medical Advice Endocrinology [address] [address] [place] [address] Vinicius Márquez, TECHNOLOGY APPLICATIONS CONSULTANT.NEURO PSYCH SALES SPECIALIST [address] [address] [place] [address] PAIN POST EATING, VOMITTING Social History Tobacco [...] is lower risk 2 12/21/2022 Data from: https://www.neighborhoodatlas.medicine.[facility]/. Last address used for calculation [address] [...] [facility] End[facility]ology [address] [place] [address] Greg Nina, MARITZA.NEURO PSYCH SALES SPECIALIST [address] [place] [address] diabetes follow up with me in 3 months virtually 09/04/2024 11:30 AM EDT [facility] Gastroenterology [address] [address] Mika Rodgers MD 9500 [place], [place] 9345495 Esophageal stricture [K22.2]Diverticuliti s of colon [K57.32] 11/20/2024 1:00 PM EDT [facility] Endocrinology [address] [place] [address] Valdez Suarez MD [address] [place] [address] [address] [place], [place] 1949[address] follow up in 6 months documented as of this encounter Visit Diagnoses Not on filedocumented in this encounter Care Teams Conformal Pad Former Relationship Specialty Start Date End Date Farhat Cabezas MD PCP - General Family Medicine 01/13/11 Farhat Cabezas MD Referring Family Medicine 01/08/22 Farhat Cabezas MD 1265 [place] [address] Referring Family Medicine 07/26/24 documented as of this encounter
--- OUTSIDE RECORDS SUMMARY | 2024-08-27 07:47 | XMS_ITS | Encounter Summary ---
Demographics Address [address] [place] [address] Home Phone Mobile Phone Email Address Preferred Language ENG Marital Status Single Restorationist Affiliation Unknown Race White Ethnic Group Not or Lati no Author Organization [facility] Address [address] [place] [address] Care Team Providers Care Junior Business Analyst Name Role Phone Farhat Cabezas MD Primary Care Provider [phone] Farhat Cabezas MD Unavailable [phone] Farhat Cabezas MD Unavailable [phone] Source Comments In the event this information is protected by the Federal Confidentiality of Alcohol and Drug AbusePatient Records regulations: The Federal rules restrict any use of the information to criminally investigate or prosecute any alcohol or drug abuse patient.[facility] Encounter Details Date Type Department Care Team (Late st Contact Info) Description 08/12/2020 Patient Msg BMI [facility] REJ [address] [place], [place] [phone] Rachel Yi MD 9506 [place] [address] Request an Appointment Social History Tobacco Use Types Packs/Day Years Used Date Smoking Tobacco: Never Smokeless Tobacco: Never Alcohol Use Standard Drinks/Week Comments Yes 0 (1 standard drink = 0.6 oz pur e alcohol) Social Area Deprivation Index Answer Date Ord rded National Score (1-100), lower number is lower ri sk Not on file 01/16/2020 State Score (1-10), lower number is lower risk N ot on file 01/16/2020 Data from: https://www.neighborhoodatlas.medicine.[facility]/. Last address [...] Description 08/30/2024 9:30 AM EDT [facility] Endocrinology [address] [place] [address] Greg Nina, MARITZA.AUTOMATIC VULCANIZING LEAD OPERATOR [address] [place], [place] 4140839 diabetes follow up with me in 3 months virtually 09/04/2024 11:30 AM EDT [facility] Gastroenterology [address] [address] Mika Rodgers MD 9500 [place] [address] Esophageal stricture [K22.2]Diverticuliti s of colon [K57.32] 11/20/2024 1:00 PM EDT [facility] Endocrinology [address] [place] [address] Valdez Suarez MD [address] [place] [address] [address] [place], [place] 8537035 follow up in 6 months documented as of this encounter Visit Diagnoses Not on filedocumented in this encounter Care Teams Junior Business Analyst Relationship Specialty Start Date End Date Farhat Cabezas MD PCP - General Family Medicine 01/13/11 Farhat Cabezas MD Referring Family Medicine 01/08/22 Farhat Cabezas MD [address] [place] [address] Referring Family Medicine 07/26/24 documented as of this encounter
--- OUTSIDE RECORDS SUMMARY | 2024-08-27 07:47 | XMS_ITS | Encounter Summary ---
Demographics Address [address] [facility] [place] [address] Home Phone Mobile Phone Email Address Preferred Language ENG Marital Status Single Muslim Affiliation Unknown Race White Ethnic Group Not or Lati no Author Organization [facility] Address [address] [place] [address] Care Team Providers Care Speech Language Specialist Name Role Phone Farhat Cabezas MD Primary Care Provider [phone] Farhat Cabezas MD Unavailable [phone] Farhat Cabezas MD Unavailable [phone] Source Comments In the event this information is protected by the Federal Confidentiality of Alcohol and Drug AbusePatient Records regulations: The Federal rules restrict any use of the information to criminally investigate or prosecute any alcohol or drug abuse patient.[facility] Encounter Details Date Type Department Care Team (Late st Contact Info) Description 04/29/2022 Get Medical Advice Neurology 2550 [place], [place] 1087494 Fariha Acevedo MD 3024 [place] [address] SLEEP APNEA / DOWNLOAD BI [...] N ot on file 02/25/2022 Data from: https://www.neighborhoodatlas.medicine.[facility]/. Last address used for calculation 102 [...] Carpio RN - 04/29/2022 2:57 PM EDT ZEB message sent * Telephone Encounter - Keshawn Carpio RN - 04/29/2022 2:50 PM EDT Images from the original note were not included. documented in this encounter Plan of Treatment Upcoming Encounters Date Type Department Care Team (Late st Contact Info) Description 08/30/2024 9:30 AM EDT [facility] Endocrinology [address] [place] [address] Greg Nina APRN.WEIGHT CALCULATOR [address] [place], [place] [phone] diabetes follow up with me in 3 months virtually 09/04/2024 11:30 AM EDT [facility] Gastroenterology [address] [address] Mika Rodgers MD 9500 [place], [place] 799[address]95 Esophageal stricture [K22.2]Diverticuliti s of colon [K57.32] 11/20/2024 1:00 PM EDT [facility] Endocrinology [address] [place] [address] Valdez Suarez MD [address] [place] [address] [address] [place], [place] 6926435 follow up in 6 months documented as of this encounter Visit Diagnoses Not on filedocumented in this encounter Care Teams Speech Language Specialist Relationship Specialty Start Date End Date Farhat Cabezas MD PCP - General Family Medicine 01/13/11 Farhat Cabezas MD Referring Family Medicine 01/08/22 Farhat Cabezas MD [address] [place] [address] Referring Family Medicine 07/26/24 documented as of this encounter
--- OUTSIDE RECORDS SUMMARY | 2024-08-27 07:47 | XMS_ITS | Encounter Summary ---
Demographics Address [address] [place] [address] Home Phone Mobile Phone Email Address Preferred Language ENG Marital Status Single Advent Affiliation Unknown Race White Ethnic Group Not or Lati no Author Organization [facility] Address [address] [place] [address] Care Team Providers Care Bar Attendant Name Role Phone Farhat Cabezas MD Primary Care Provider [phone] Farhat Cabezas MD Unavailable [phone] Farhat Cabezas MD Unavailable [phone] Source Comments In the event this information is protected by the Federal Confidentiality of Alcohol and Drug AbusePatient Records regulations: The Federal rules restrict any use of the information to criminally investigate or prosecute any alcohol or drug abuse patient.[facility] Encounter Details Date Type Department Care Team (Late st Contact Info) Description 10/05/2019 Get Medical Advice [facility] REJ [address] [place], [place] [phone] Rachel Yi MD 9506 [place] [address] RE: Visit Follow Up Question [...] Description 08/30/2024 9:30 AM EDT [facility] Endocrinology [address] [place] [address] Greg Nina APRN.METER READER INSPECTOR [address] [place] [address] diabetes follow up with me in 3 months virtually 09/04/2024 11:30 AM EDT [facility] [address] [address] Mika Rodgers MD [address] [place] [place], [place] [address] Esophageal stricture [K22.2]Diverticuliti s of colon [K57.32] 11/20/2024 1:00 PM EDT [facility] End[facility]ology [address] [place] [address] Valdez Suarez MD [address] [facility] [address] [place], [place] 20916[address] follow up in 6 months documented as of this encounter Visit Diagnoses Not on filedocumented in this encounter Care Teams Bar Attendant Relationship Specialty Start Date End Date Farhat Cabezas MD PCP - General Family Medicine 01/13/11 Farhat Cabezas MD Referring Family Medicine 01/08/22 Farhat Cabezas MD [facility] [place] [address] Referring Family Medicine 07/26/24 documented as of this encounter
--- OUTSIDE RECORDS SUMMARY | 2024-08-27 07:47 | XMS_ITS | Encounter Summary ---
Demographics Address [address] [facility] [place] [address] Home Phone Mobile Phone Email Address Preferred Language ENG Marital Status Single Orthodoxy Affiliation Unknown Race White Ethnic Group Not or Lati no Author Organization [facility] Address [address] [place] [address] Care Team Providers Care Wildlife Management Professor Name Role Phone Farhat Cabezas MD Primary Care Provider [phone] Farhat Cabezas MD Unavailable [phone] Farhat Cabezas MD Unavailable Source Comments In the event this information is protected by the Federal Confidentiality of Alcohol and Drug AbusePatient Records regulations: The Federal rules restrict any use of the information to criminally investigate or prosecute any alcohol or drug abuse patient.[facility] Encounter Details Date Type Department Care Team (Late st Contact Info) Description 09/23/2021 Patient [facility] [address] [place] [address] Provider, Ccf A Message from the [facility] Social History Tobacco Use Types [...] N ot on file 07/19/2021 Data from: https://www.neighborhoodatlas.[facility].edu/. Last address used for calculation [address] [facility] 07/19/2021 Comments No Sex and Gender [...] 9:30 AM EDT [facility] Endocrinology [address] [place] [address] Greg Nina, MARITZA.FINANCIAL SERVICES REPRESENTATIVE [address] [place] [address] diabetes follow up with me in 3 months virtually 09/04/2024 11:30 AM EDT [facility] Gastroenterology [address] [address] Mika Rodgers MD 9500 [place], [place] [phone] Esophageal stricture [K22.2]Diverticuliti s of colon [K57.32] 11/20/2024 1:00 PM EDT [facility] Endocrinology [address] [place] [address] Valdez Suarez MD [address] [place] [address] [address] [place], [place] 06308[address] follow up in 6 months documented as of this encounter Visit Diagnoses Not on filedocumented in this encounter Care Teams Wildlife Management Professor Relationship Specialty Start Date End Date Farhat Cabezas MD PCP - General Family Medicine 01/13/11 Farhat Cabezas MD Referring Family Medicine 01/08/22 Farhat Cabezas MD 1265 [place] [address] Referring Family Medicine 07/26/24 documented as of this encounter
--- OUTSIDE RECORDS SUMMARY | 2024-08-27 07:47 | XMS_ITS | Encounter Summary ---
Demographics Address [address] [facility] [place] [address] Home Phone Mobile Phone Email Address Preferred Language ENG Marital Status Single Shinto Affiliation Unknown Race White Ethnic Group Not or Lati no Author Organization [facility] Address [address] [place] [address] Care Team Providers Care Wood Cabinet Finisher Name Role Phone Farhat Cabezas MD Primary Care Provider [phone] Farhat Cabezas MD Unavailable [phone] Farhat Cabezas MD Unavailable [phone] Source Comments In the event this information is protected by the Federal Confidentiality of Alcohol and Drug AbusePatient Records regulations: The Federal rules restrict any use of the information to criminally investigate or prosecute any alcohol or drug abuse patient.[facility] Encounter Details Date Type Department Care Team (Late st Contact Info) Description 10/27/2021 Get Medical Advice Neurology [address] [place] [address] Mahogany Reyes, HOURLY CAREGIVER.IC DESIGNER STANDARD CELLS [address] [place] [address] Med refill Social History Tobacco [...] N ot on file 07/19/2021 Data from: https://www.neighborhoodatlas.medicine.[facility]/. Last address used for calculation [address] [...] Cerda RN - 11/19/2021 8:06 AM EDT Miaopait message sent * Telephone Encounter - Mahogany Reyes APRN.IC DESIGNER STANDARD CELLS - 11/10/2021 11:59 AM EDT Order completed. PDMP website checked and validated. All prescriptions have been APPROPRIATELY filled. No suspiciousactivity was identified. 11/10/2021 by Mahogany Reyes APRN.IC DESIGNER STANDARD CELLS * Telephone Encounter - Latasha Cerda RN - 11/10/2021 11:49 AM EDT Yosvany 03/20/21 w/ HOURLY CAREGIVER Fov 12/17/21 w/ HOURLY CAREGIVER My Chart message sent to patient to [...] BiPAP 12/8 cm H20. - Follow-up with HOURLY CAREGIVER for in person visit as this is a requirement when receiving controlled medications. Mahogany Reyes APRN.IC DESIGNER STANDARD CELLS * Telephone Encounter - Latasha Cerda RN [...] EDT [facility] Endocrinology [address] [place] [address] Greg Nina APRN.IC DESIGNER STANDARD CELLS [address] [place], [place] [id number] diabetes follow up with me in 3 months virtually 09/04/2024 11:30 AM EDT [facility] Gastroenterology [address] [address] Mika Rodgers MD [address] [place] [address] Esophageal stricture [K22.2]Diverticuliti s of colon [K57.32] 11/20/2024 1:00 PM EDT [facility] Endocrinology [address] [place] [address] Valdez Suarez MD [address] [place] [address] [address] [place], [place] [phone] follow up in 6 months documented as of this encounter Visit Diagnoses Diagnosis Other insomnia documented in this encounter Care Teams Wood Cabinet Finisher Relationship Specialty Start Date End Date Farhat Cabezas MD PCP - General Family Medicine 01/13/11 Farhat Cabezas MD Referring Family Medicine 01/08/22 [place] [address] [place] [address] Referring Family Medicine 07/26/24 documented as of this encounter
--- OUTSIDE RECORDS SUMMARY | 2024-08-27 07:47 | XMS_ITS | Encounter Summary ---
Demographics Address [address] [place] [address] Home Phone Mobile Phone Email Address Preferred Language ENG Marital Status Single Rastafari Affiliation Unknown Race White Ethnic Group Not or Lati no Author Organization [facility] Address [address] [place] [address] Care Team Providers Care Cavalry Scout Name Role Phone Farhat Cabezas MD Primary Care Provider [phone] Farhat Cabezas MD Unavailable [phone] Farhat Cabezas MD Unavailable [phone] Source Comments In the event this information is protected by the Federal Confidentiality of Alcohol and Drug AbusePatient Records regulations: The Federal rules restrict any use of the information to criminally investigate or prosecute any alcohol or drug abuse patient.[facility] Encounter Details Date Type Department Care Team (Late st Contact Info) Description 07/15/2020 Patient Msg General Surgery [address] [place] [address] Provider, Ccf Lab results Social [...] N ot on file 01/16/2020 Data from: https://www.[facility]/. Last address used for calculation [...] EDT [facility] Endocrinology [address] [place] [address] Greg Nina APRN.SHEET TURNER [address] [place] [address] diabetes follow up with me in 3 months virtually 09/04/2024 11:30 AM EDT [facility] Gastroenterology [address] [address] Mika Rodgers MD [address] [place] [address] Esophageal stricture [K22.2]Diverticuliti s of colon [K57.32] 11/20/2024 1:00 PM EDT [facility] Endocrinology [address] [place] [address] Valdez Suarez MD [address] [place] [address] [address] [place], [place] 0043735 follow up in 6 months documented as of this encounter Visit Diagnoses Not on filedocumented in this encounter Care Teams Cavalry Scout Relationship Specialty Start Date End Date Farhat Cabezas MD PCP - General Family Medicine 01/13/11 Farhat Cabezas MD Referring Family Medicine 01/08/22 Farhat Cabezas MD [address] [place] [address] Referring Family Medicine 07/26/24 documented as of this encounter
--- OUTSIDE RECORDS SUMMARY | 2024-08-27 07:47 | XMS_ITS | Encounter Summary ---
Demographics Address [address] [facility] [place] [address] Home Phone Mobile Phone Email Address Preferred Language ENG Marital Status Single Pentecostal Affiliation Unknown Race White Ethnic Group Not or Lati no Author Organization [facility] Address [address] [place] [address] Care Team Providers Care Senior Functional Analyst Name Role Phone Farhat Cabezas MD Primary Care Provider [phone] Farhat Cabezas MD Unavailable [phone] Farhat Cabezas MD Unavailable [phone] Source Comments In the event this [...] for Integrative Med [address] [place] [id number] Provider, Ccf Referral- WELLNESS CONSULT Social History [...] N ot on file 01/16/2020 Data from: https://www.[facility] hospital[facility]/. Last address used for calculation Not [...] 08/30/2024 9:30 AM EDT [facility] Endocrinology [address] [place] [address] Greg Nina APRN.HOSTESS [address] [place] [address] diabetes follow up with me in 3 months virtually 09/04/2024 11:30 AM EDT [facility] Gastroenterology [address] [address] Mika Rodgers MD [address] [place] [address] Esophageal stricture [K22.2]Diverticuliti s of colon [K57.32] 11/20/2024 1:00 PM EDT [facility] Endocrinology [address] [place] [address] Valdez Suarez MD [address] [place] [address] [address] [place], [place] 9[address]01[address] follow up in 6 months documented as of this encounter Visit Diagnoses Not on filedocumented in this encounter Care Teams Senior Functional Analyst Relationship Specialty Start Date End Date Farhat Cabezas MD PCP - General Family Medicine 01/13/11 Farhat Cabezas MD Referring Family Medicine 01/08/22 Farhat Cabezas MD [address] [place] [address] Referring Family Medicine 07/26/24 documented as of this encounter
--- OUTSIDE RECORDS SUMMARY | 2024-08-27 07:47 | XMS_ITS | Encounter Summary ---
Author Organization [facility] Address [address] [place] [address] Care Team Providers Care Import Dispatcher Name Role Phone Farhat Cabezas MD Primary Care Provider [phone] Farhat Cabezas MD Unavailable [phone] Farhat Cabezas MD Unavailable [phone] Source Comments In the event this information is protected by the Federal Confidentiality of Alcohol and Drug AbusePatient Records regulations: The Federal rules restrict any use of the information to criminally investigate or prosecute any alcohol or drug abuse patient.[facility] Encounter Details Date Type Department Care Team (Late st Contact Info) Description 06/14/2019 Patient Msg BMI [facility] REJ [address] [place], [place] [phone] Rachel Yi MD [address] [place] [address] Bariatric Labs Social History Tobacco [...] Description 08/30/2024 9:30 AM EDT [facility] Endocrinology [address] [place] [address] Greg Nina APRN.TONGUE AND GROOVE MACHINE FEEDER [address] [place] [address] diabetes follow up with me in 3 months virtually 09/04/2024 11:30 AM EDT [facility] Gastroenterology [address] [address] Mika Rodgers MD [address] [place] [place], [place] [address] Esophageal stricture [K22.2]Diverticuliti s of colon [K57.32] 11/20/2024 1:00 PM EDT [facility] Endocrinology [address] [place] [address] Valdez Suarez MD [address] [facility] [address] [place], [place] [address] follow up in 6 months documented as of this encounter Visit Diagnoses Not on filedocumented in this encounter Care Teams Import Dispatcher Relationship Specialty Start Date End Date Farhat Cabezas MD PCP - General Family Medicine 01/13/11 Farhat Cabezas MD Referring Family Medicine 01/08/22 Farhat Cabezas MD [address] [place] [address] Referring Family Medicine 07/26/24 documented as of this encounter
--- OUTSIDE RECORDS SUMMARY | 2024-08-27 07:47 | XMS_ITS | Encounter Summary ---
Author Organization [facility] Address [address] [place] [address] Care Team Providers Care Remote Broadcast Engineer Name Role Phone Jacob Santillan MD Primary Care Provider [phone] Farhat Cabezas MD Primary Care Provider [phone] Farhat Cabezas MD Unavailable [phone] Farhat Cabezas MD Unavailable [phone] Source Comments In the event this information is protected by the Federal Confidentiality of Alcohol and Drug AbusePatient Records regulations: The Federal rules restrict any use of the information to criminally investigate or prosecute any alcohol or drug abuse patient.[facility] Encounter Details Date Type Department Care Team ([facility] Contact Info) Description 09/20/2008 Patient Msg Medical Records [address] [place] [address] Provider, Ccf labwork Social History Tobacco Use [...] Upcoming Encounters Date Type Department Care Team ([facility] Contact Info) Description 08/30/2024 9:30 AM EDT [facility] Endocrinology [address] [place] [address] Greg Nina APRN.NUTRITION TECH [address] [place] [address] diabetes follow up with me in 3 months virtually 09/04/2024 11:30 AM EDT [facility] Gastroenterology [address] [address] Mika Rodgers MD [address] [place], [place] [address] Esophageal stricture [K22.2]Diverticuliti s of colon [K57.32] 11/20/2024 1:00 PM EDT [facility] Endocrinology [address] [place] [address] Valdez Suarez MD [address] [place] [address] [address] [place], [place] 71914[address] follow up in 6 months documented as of this encounter Visit Diagnoses Not on filedocumented in this encounter Care Teams Remote Broadcast Engineer Relationship Specialty Start Date End Date Jacob Santillan MD PCP - General 08/05/05 01/12/11 Farhat Cabezas MD PCP - General Family Medicine 01/13/11 Farhat Cabezas MD Referring Family Medicine 01/08/22 Farhat Cabezas MD [address] [place] [address] Referring Family Medicine 07/26/24 documented as of this encounter
--- OUTSIDE RECORDS SUMMARY | 2024-08-27 07:47 | XMS_ITS | Encounter Summary ---
Demographics Address [address] [place] [address] Home Phone Mobile Phone Email Address Preferred Language ENG Marital Status Single Pentecostalism Affiliation Unknown Race White Ethnic Group Not or Lati no Author Organization [facility] Address [address] [place] [address] Care Team Providers Care Websphere Commerce Architect Name Role Phone Farhat Cabezas MD Primary Care Provider [phone] Farhat Cabezas MD Unavailable [phone] Farhat Cabezas MD Unavailable [phone] Source Comments In the event this information is protected by the Federal Confidentiality of Alcohol and Drug AbusePatient Records regulations: The Federal rules restrict any use of the information to criminally investigate or prosecute any alcohol or drug abuse patient.[facility] Encounter Details Date Type Department Care Team (Late st Contact Info) Description 11/03/2020 Get Medical Advice Cardiology 5700 [place] [address] Sea Collins DO 5708 [place], [place] [phone] RE: Visit Follow Up Question Social History [...] ot on file 01/16/2020 Data from: https://www.neighborhoodatlas.medicine.[facility]/. Last address used for [...] Info) Description 08/30/2024 9:[address] [facility] Endocrinology [address] [place] [address] Greg Nina APRN.WEB KNITTER [address] [place] [address] diabetes follow up with me in 3 months virtually 09/04/2024 11:[address] [facility] Gastroenterology [address] [address] Mika Rodgers MD 9508 [place] [address] Esophageal stricture [K22.2]Diverticuliti s of colon [K57.32] 11/20/2024 1:[address] [facility] Endocrinology [address] [place] [address] Valdez Suarez MD [address] [place] [address] [address] [place], [place] [address]389[address] follow up in 6 months documented as of this encounter Visit Diagnoses Not on filedocumented in this encounter Care Teams Websphere Commerce Architect Relationship Specialty Start Date End Date Farhat Cabezas MD PCP - General Family Medicine 01/13/11 Farhat Cabezas MD Referring Family Medicine 01/08/22 Farhat Cabezas MD [address] [place] [address] Referring Family Medicine 07/26/24 documented as of this encounter
--- OUTSIDE RECORDS SUMMARY | 2024-08-27 07:47 | XMS_ITS | Encounter Summary ---
Author Organization [facility] Address [address] [place] [address] Care Team Providers Care Vice President Business Development Name Role Phone Farhat Cabezas MD Primary Care Provider [phone] Farhat Cabezas MD Unavailable [phone] Farhat Cabezas MD Unavailable [phone] Source Comments In the event this information is protected by the Federal Confidentiality of Alcohol and Drug AbusePatient Records regulations: The Federal rules restrict any use of the information to criminally investigate or prosecute any alcohol or drug abuse patient.[facility] Encounter Details Date Type Department Care Team (Late st Contact Info) Description 09/20/2019 Abstract BMI [facility] REJ [address] [place] [address] Rachel Yi MD [address] [place] [address] Social History Tobacco Use Types [...] Contact Info) Description 08/30/2024 9:30 AM EDT [facility] Endocrinology [address] [place] [address] Greg Nina APRN.FOIL OPERATOR [address] [place], [place] 11040[address] diabetes follow up with me in 3 months virtually 09/04/2024 11:30 AM EDT [facility] Gastroenterology [address] [address] Mika Rodgers MD [address] [place], [place] 04[address] Esophageal stricture [K22.2]Diverticuliti s of colon [K57.32] 11/20/2024 1:00 PM EDT [facility] Endocrinology [address] [place] [address] Valdez Suarez MD [address] [facility] [address] [place], [place] [address] follow up in 6 months documented as of this encounter Visit Diagnoses Not on filedocumented in this encounter Care Teams Vice President Business Development Relationship Specialty Start Date End Date Farhat Cabezas MD PCP - General Family Medicine 01/13/11 Farhat Cabezas MD Referring Family Medicine 01/08/22 Farhat Cabezas MD [address] [place] [address] Referring Family Medicine 07/26/24 documented as of this encounter
--- OUTSIDE RECORDS SUMMARY | 2024-08-27 07:47 | XMS_ITS | Encounter Summary ---
Demographics Address [address] [facility] [place] [address] Home Phone Mobile Phone Email Address Preferred Language ENG Marital Status Single Jehovah'S Witness Affiliation Unknown Race White Ethnic Group Not or Lati no Author Organization [facility] Address [address] [place] [address] Care Team Providers Care National Investigative Producer Name Role Phone Farhat Cabezsa MD Primary Care Provider [phone] Farhat Cabezas MD Unavailable [phone] Farhat Cabezas MD Unavailable [phone] Source Comments In the event this [...] Sleep Disorders [address] [place] [address] Mehnaz Serrano APRN.WIRE TINNER [address] [place] [address] sleep plan Social History Tobacco [...] N ot on file 02/25/2022 Data from: https://www.neighborhoodatlas.medicine.[facility]/. Last address used for calculation [address] 02/25/2022 Comments No Sex and Gender [...] AM EDT [facility] Endocrinology [address] [place] [address] Greg Nina, MARITZA.WIRE TINNER [address] [place] [address] diabetes follow up with me in 3 months virtually 09/04/2024 11:30 AM EDT [facility] Gastroenterology [address] [address] Mika Rodgers MD 9500 [place], [place] [address] Esophageal stricture [K22.2]Diverticuliti s of colon [K57.32] 11/20/2024 1:00 PM EDT [facility] Endocrinology [address] [place] [address] Valdez Suarez MD [address] [place] [address] [address] [place], [place] 8828335 follow up in 6 months documented as of this encounter Visit Diagnoses Not on filedocumented in this encounter Care Teams National Investigative Producer Relationship Specialty Start Date End Date Farhat Cabezas MD PCP - General Family Medicine 01/13/11 Farhat Cabezas MD Referring Family Medicine 01/08/22 Farhat Cabezas MD [address] [place] [address] Referring Family Medicine 07/26/24 documented as of this encounter
--- OUTSIDE RECORDS SUMMARY | 2024-08-27 07:47 | XMS_ITS | Encounter Summary ---
Demographics Address [address] [place] [address] Home Phone Mobile Phone Email Address Preferred Language ENG Marital Status Single Scientology Affiliation Unknown Race White Ethnic Group Not or Lati no Author Organization [facility] Address [address] [place] [address] Care Team Providers Care Acquisition Marketing Manager Name Role Phone Farhat Cabezas MD Primary Care Provider [phone] Farhat Cabezas MD Unavailable [phone] Farhat Cabezas MD Unavailable [phone] Source Comments In the event this information is protected by the Federal Confidentiality of Alcohol and Drug AbusePatient Records regulations: The Federal rules restrict any use of the information to criminally investigate or prosecute any alcohol or drug abuse patient.[facility] Encounter Details Date Type Department Care Team (Late st Contact Info) Description 09/22/2020 Get Medical Advice [facility] REJ [address] [place], [place] 18[address] Rachel Yi MD [address] [place] [address] RE: Visit Follow Up Question [...] N ot on file 01/16/2020 Data from: https://www.neighborhoodatlas.medicine.[facility]/. Last address used for calculation [...] 9:30 AM EDT [facility] Endocrinology [address] [place] [address] Greg Nina APRN.POST ACUTE CARE NURSE [address] [place], [place] 54[address] diabetes follow up with me in 3 months virtually 09/04/2024 11:30 AM EDT [facility] Gastroenterology [address] [address] Mika Rodgers MD [address] [place] [address] Esophageal stricture [K22.2]Diverticuliti s of colon [K57.32] 11/20/2024 1:00 PM EDT [facility] Endocrinology [address] [place] [address] Valdez Suarez MD [address] [place] [address] [address] [place], [place] 752[address] follow up in 6 months documented as of this encounter Visit Diagnoses Not on filedocumented in this encounter Care Teams Acquisition Marketing Manager Relationship Specialty Start Date End Date Farhat Cabezas MD PCP - General Family Medicine 01/13/11 Farhat Cabezas MD Referring Family Medicine 01/08/22 Farhat Cabezas MD [address] [place] [address] Referring Family Medicine 07/26/24 documented as of this encounter
--- OUTSIDE RECORDS SUMMARY | 2024-08-27 07:47 | XMS_ITS | Encounter Summary ---
Author Organization [facility] Address [facility] [place] [address] Care Team Providers Care Technical Assistant Name Role Phone Jacob Santillan MD Primary Care Provider [phone] Farhat Cabezas MD Primary Care Provider [phone] Farhat Cabezas MD Unavailable [phone] Farhat Cabezas MD Unavailable [phone] Source Comments In the event this information is protected by the Federal Confidentiality of Alcohol and Drug AbusePatient Records regulations: The Federal rules restrict any use of the information to criminally investigate or prosecute any alcohol or drug abuse patient.[facility] Encounter Details Date Type Department Care Team (Late st Contact Info) Description 09/20/2008 Patient Msg Medical Records [address] [place] [address] Provider, Ccf RE: Findings/questions/GI refferal Social History [...] 08/30/2024 9:30 AM EDT [facility] Endocrinology [address] [place] [address] Greg Nina APRN.SHREDDED FILLER MACHINE WRAPPER LAYER [address] [place] [address] diabetes follow up with me in 3 months virtually 09/04/2024 11:30 AM EDT [facility] Gastroenterology [address] [address] Mika Rodgers MD 9500 [place], [place] [address] Esophageal stricture [K22.2]Diverticuliti s of colon [K57.32] 11/20/2024 1:00 PM EDT [facility] Endocrinology [address] [place] [address] Valdez Suarez MD [address] [place] [address] [place] [address] follow up in 6 months documented as of this encounter Visit Diagnoses Not on filedocumented in this encounter Care Teams Technical Assistant Relationship Specialty Start Date End Date Jacob Santillan MD PCP - General 08/05/05 01/12/11 Farhat Cabezas MD PCP - General Family Medicine 01/13/11 Farhat Cabezas MD Referring Family Medicine 01/08/22 Farhat Cabezas MD [address] [place] [address] Referring Family Medicine 07/26/24 documented as of this encounter
--- OUTSIDE RECORDS SUMMARY | 2024-08-27 07:48 | XMS_ITS | Encounter Summary ---
Demographics Address [address] [place] [address] Home Phone Mobile Phone Email Address Preferred Language ENG Marital Status Single Lutheran Affiliation Unknown Race White Ethnic Group Not or Lati no Author Organization [facility] Address [address] [place] [address] Care Team Providers Care Neon Sign Worker Name Role Phone Farhat Cabezas MD Primary Care Provider [phone] Farhat Cabezas MD Unavailable [phone] Farhat Cabezas MD Unavailable [phone] Source Comments In the event this information is protected by the Federal Confidentiality of Alcohol and Drug AbusePatient Records regulations: The Federal rules restrict any use of the information to criminally investigate or prosecute any alcohol or drug abuse patient.[facility] Encounter Details Date Type Department Care Team (Late st Contact Info) Description 05/28/2023 Patient Msg Cardiology [address] [place], [place] [address] Ellyn Barraza, INSPECTOR TECHNICIAN.STEEL DETAILER [address] [place], [place] [phone] Appointment Request Social History Tobacco Use Types [...] risk 2 12/21/2022 Data from: https://www.neighborhoodatlas.medicine.[facility].edu/. Last address used for calculation [address] 12/21/2022 Comments No Sex and Gender [...] 08/30/2024 9:30 AM EDT [facility] Endocrinology [address] [place] [address] Greg Nina APRN.STEEL DETAILER [address] [place] [address] diabetes follow up with me in 3 months virtually 09/04/2024 11:30 AM EDT [facility] Gastroenterology [address] [address] Mika Rodgers MD [address] [place] [address] Esophageal stricture [K22.2]Diverticuliti s of colon [K57.32] 11/20/2024 1:00 PM EDT [facility] Endocrinology [address] [place] [address] Valdez Suarez MD [address] [place] [address] [place] [address] follow up in 6 months documented as of this encounter Visit Diagnoses Not on filedocumented in this encounter Care Teams Neon Sign Worker Relationship Specialty Start Date End Date Farhat Cabezas MD PCP - General Family Medicine 01/13/11 Farhat Cabezas MD Referring Family Medicine 01/08/22 Farhat Cabezas MD [address]65 [place] [address] Referring Family Medicine 07/26/24 documented as of this encounter
--- OUTSIDE RECORDS SUMMARY | 2024-08-27 07:48 | XMS_ITS | Encounter Summary ---
Demographics Address [address] [place] [address] Home Phone Mobile Phone Email Address Preferred Language ENG Marital Status Single Caodaism Affiliation Unknown Race White Ethnic Group Not or Lati no Author Organization [facility] Address [address] [place] [address] Care Team Providers Care Data Software Engineer Name Role Phone Farhat Cabezas MD Primary Care Provider [phone] Farhat Cabezas MD Unavailable [phone] Farhat Cabezas MD Unavailable [phone] Source Comments In the event this information is protected by the Federal Confidentiality of Alcohol and Drug AbusePatient Records regulations: The Federal rules restrict any use of the information to criminally investigate or prosecute any alcohol or drug abuse patient.[facility] Encounter Details Date Type Department Care Team (Late st Contact Info) Description 12/20/2023 [place] [address] Provider, Ccf MRI Screening Questionnaire Completion Required [...] is lower risk 2 12/21/2022 Data from: https://www.neighborhoodatlas.[facility]/. Last address used for calculation [address] [facility] W 12/21/2022 Comments No Sex and Gender [...] Info) Description 08/30/2024 9:[address] [facility] Endocrinology [address] [place] [address] Greg Nina APRN.TELEGRAPH OFFICE ROUTE AIDE [address] [place] [address] diabetes follow up with me in 3 months virtually 09/04/2024 11:[address] [facility] Gastroenterology [address] [address] Mika Rodgers MD [address] [place], [place] [address] Esophageal stricture [K22.2]Diverticuliti s of colon [K57.32] 11/20/2024 1:[address] [facility] Endocrinology [address] [place] [address] Valdez Suarez MD [address] [facility] [address] [place], [place] [address] follow up in 6 months documented as of this encounter Visit Diagnoses Not on filedocumented in this encounter Care Teams Data Software Engineer Relationship Specialty Start Date End Date Farhat Cabezas MD PCP - General Family Medicine 01/13/11 Farhat Cabezas MD Referring Family Medicine 01/08/22 Farhat Cabezas MD [address]65 [place] [address] Referring Family Medicine 07/26/24 documented as of this encounter
--- OUTSIDE RECORDS SUMMARY | 2024-08-27 07:48 | XMS_ITS | Encounter Summary ---
Demographics Address [address] [place] [address] Home Phone Mobile Phone Email Address Preferred Language ENG Marital Status Single Jewish Affiliation Unknown Race White Ethnic Group Not or Lati no Author Organization [facility] Address [address] [place] [address] Care Team Providers Care Lawn Mower Mechanic Name Role Phone Farhat Cabezas MD Primary Care Provider [phone] Farhat Cabezas MD Unavailable [phone] Farhat Cabezas MD Unavailable [phone] Source Comments In the event this information is protected by the Federal Confidentiality of Alcohol and Drug AbusePatient Records regulations: The Federal rules restrict any use of the information to criminally investigate or prosecute any alcohol or drug abuse patient.[facility] Encounter Details Date Type Department Care Team (Late st Contact Info) Description 07/04/2024 [place] [address] Provider, Ccf Phone call fllow up Social [...] is lower risk 7 03/07/2024 Data from: https://www.neighborhoodatlas.[facility]/ . Last address used for calculation [address] 03/07/2024 Comments No Sex and [...] AM EDT [facility] Endocrinology [address] [place] [address] Greg Nina APRN.SKI TOP TRIMMER [address] [place] [address] diabetes follow up with me in 3 months virtually 09/04/2024 11:30 AM EDT [facility] Gastroenterology [address] [address] Mika Rodgers MD [address] [place] [address] Esophageal stricture [K22.2]Diverticuliti s of colon [K57.32] 11/20/2024 1:00 PM EDT [facility] Endocrinology [address] [place] [address] Valdez Suarez MD [address] [place] [address] [address] [place] [address] follow up in 6 months documented as of this encounter Visit Diagnoses Not on filedocumented in this encounter Care Teams Lawn Mower Mechanic Relationship Specialty Start Date End Date Farhat Cabezas MD PCP - General Family Medicine 01/13/11 Farhat Cabezas MD Referring Family Medicine 01/08/22 Farhat Cabezas MD [address] [place] [address] Referring Family Medicine 07/26/24 documented as of this encounter
--- OUTSIDE RECORDS SUMMARY | 2024-08-27 07:48 | XMS_ITS | Encounter Summary ---
Demographics Address [address] [place] [address] Home Phone Mobile Phone Email Address Preferred Language ENG Marital Status Single Sikhism Affiliation Unknown Race White Ethnic Group Not or Lati no Author Organization [facility] Address [address] [place] [address] Care Team Providers Care Cna Ltc Name Role Phone Farhat Cabezas MD Primary Care Provider [phone] Farhat Cabezas MD Unavailable [phone] Farhat Cabezas MD Unavailable [phone] Source Comments In the event this information is protected by the Federal Confidentiality of Alcohol and Drug AbusePatient Records regulations: The Federal rules restrict any use of the information to criminally investigate or prosecute any alcohol or drug abuse patient.[facility] Encounter Details Date Type Department Care Team (Late st Contact Info) Description 07/03/2024 [place] [address] Provider, Ccf MRI Screening Questionnaire Completion Required [...] is lower risk 7 03/07/2024 Data from: https://www.neighborhoodatlas.[facility]/ . Last address used for calculation [address] 03/07/2024 Comments No Sex and [...] EDT [facility] Endocrinology [address] [place] [address] Greg Nina APRN.HYDROELECTRIC PLANT ELECTRICAL ENGINEER [address] [place] [address] diabetes follow up with me in 3 months virtually 09/04/2024 11:30 AM EDT [facility] Gastroenterology [address] [address] Mika Rodgers MD [address] [place] [address] Esophageal stricture [K22.2]Diverticuliti s of colon [K57.32] 11/20/2024 1:00 PM EDT [facility] Endocrinology [address] [place] [address] Valdez Suarez MD [address] [facility] [address] [place], [place] [address] follow up in 6 months documented as of this encounter Visit Diagnoses Not on filedocumented in this encounter Care Teams Cna Ltc Relationship Specialty Start Date End Date Farhat Cabezas MD PCP - General Family Medicine 01/13/11 Farhat Cabezas MD Referring Family Medicine 01/08/22 Farhat Cabezas MD [address] [place] [address] Referring Family Medicine 07/26/24 documented as of this encounter
--- OUTSIDE RECORDS SUMMARY | 2024-08-27 07:48 | XMS_ITS | Encounter Summary ---
Demographics Address [address] [place] [address] Home Phone Mobile Phone Email Address Preferred Language ENG Marital Status Single Jainism Affiliation Unknown Race White Ethnic Group Not or Lati no Author Organization [facility] Address [address] [place] [address] Care Team Providers Care Head Nurse Name Role Phone Farhat Cabezas MD Primary Care Provider [phone] Farhat Cabezas MD Unavailable [phone] Farhat Cabezas MD Unavailable [phone] Source Comments In the event this information is protected by the Federal Confidentiality of Alcohol and Drug AbusePatient Records regulations: The Federal rules restrict any use of the information to criminally investigate or prosecute any alcohol or drug abuse patient.[facility] Encounter Details Date Type Department Care Team (Late st Contact Info) Description 08/17/2016 Get Medical Advice Rheumatology 5700 [place] [address] Zabrina Culver MD [address]9 [place], [place] [phone] RE: Upcoming Appointment Question Social History Tobacco [...] AM EDT [facility] Endocrinology [address] [place] [address] Greg Nina APRN.HOE RUNNER [address] [place], [place] [address] diabetes follow up with me in 3 months virtually 09/04/2024 11:30 AM EDT [facility] Gastroenterology [address] [address] Mika Rodgers MD 2270 [place] [address] Esophageal stricture [K22.2]Diverticuliti s of colon [K57.32] 11/20/2024 1:00 PM EDT [facility] Endocrinology [address] [place] [address] Valdez Suarez MD [address] [place] [address] [address] [place], [place] [address]32[address] follow up in 6 months documented as of this encounter Visit Diagnoses Not on filedocumented in this encounter Care Teams Head Nurse Relationship Specialty Start Date End Date Farhat Cabezas MD PCP - General Family Medicine 01/13/11 Farhat Cabezas MD Referring Family Medicine 01/08/22 Farhat Cabezas MD [address] [place] [address] Referring Family Medicine 07/26/24 documented as of this encounter
--- OUTSIDE RECORDS SUMMARY | 2024-08-27 07:48 | XMS_ITS | Patient Health Record ---
Demographics Address [address] [facility] [place] [address] Mobile Preferred Language en Marital Status unmarried Holiness Affiliation Unknown Race White Ethnic Group Not or Lati no Author Organization [facility] Address [address] [place] [address] Care Team Providers Care Supervisor [place] Name Role Phone Jason Lemon Primary Care Provider [phone] Reason For Referral No Information Plan Of Treatment No Information
--- OUTSIDE RECORDS SUMMARY | 2024-08-27 07:48 | XMS_ITS | Encounter Summary ---
Demographics Address [address] [place] [address] Home Phone Mobile Phone Email Address Preferred Language ENG Marital Status Single Buddhist Affiliation Unknown Race White Ethnic Group Not or Lati no Author Organization Address [address] [place] [address] Care Team Providers Care Supervisor Cytology Name Role Phone Farhat Cabezas MD Primary Care Provider [phone] Farhat Cabezas MD Unavailable [phone] Farhat Cabezas MD Unavailable [phone] Source Comments In the event this information is protected by the Federal Confidentiality of Alcohol and Drug AbusePatient Records regulations: The Federal rules restrict any use of the information to criminally investigate or prosecute any alcohol or drug abuse patient. Encounter Details Date Type Department Care Team (Late st Contact Info) Description 07/04/2024 Patient Msg Neurology [address] [place] [address] Provider, Ccf from Dr Duenas [...] is lower risk 7 03/07/2024 Data from: https://www.neighborhoodatlas.[facility]/ . Last address used for calculation [...] [facility] Endocrinology [address] [place] [address] Greg Nina APRN.TYPEWRITERS FUNCTIONAL TESTER [address] [place], [place] [address] diabetes follow up with me in 3 months virtually 09/04/2024 11:[address] [facility] Gastroenterology [address] [address] Mika Rodgers MD [address] [address] Esophageal stricture [K22.2]Diverticuliti s of colon [K57.32] 11/20/2024 1:[address] [facility] Endocrinology [address] [place] [address] Valdez Suarez MD [address] [place] [address] [address] [place], [place] [address]28[address] follow up in 6 months documented as of this encounter Visit Diagnoses Not on filedocumented in this encounter Care Teams Supervisor Cytology Relationship Specialty Start Date End Date Farhat Cabezas MD PCP - General Family Medicine 01/13/11 Farhat Cabezas MD Referring Family Medicine 01/08/22 Farhat Cabezas MD [address] [place] [address] Referring Family Medicine 07/26/24 documented as of this encounter
--- OUTSIDE RECORDS SUMMARY | 2024-08-27 07:48 | XMS_ITS | Encounter Summary ---
Demographics Address [address] [facility] [place] [address] Home Phone Mobile Phone Email Address Preferred Language ENG Marital Status Single Zoroastrianism Affiliation Unknown Race White Ethnic Group Not or Lati no Author Organization [facility] Address [facility] [place] [address] Care Team Providers Care Nut Picker Name Role Phone Farhat Cabezas MD Primary Care Provider [phone] Farhat Cabezas MD Unavailable [phone] Farhat Cabezas MD Unavailable [phone] Source Comments In the event this information is protected by the Federal Confidentiality of Alcohol and Drug AbusePatient Records regulations: The Federal rules restrict any use of the information to criminally investigate or prosecute any alcohol or drug abuse patient.[facility] Encounter Details Date Type Department Care Team (Late st Contact Info) Description 08/25/2023 Patient Msg Neurology [address] [place] [phone] Thaddeus Diggs MD 6394 [place] [address] Appointment Request Social History Tobacco [...] is lower risk 2 12/21/2022 Data from: https://www.neighborhoodatlas.medicine.[facility]/. Last address used for [...] AM EDT [facility] Endocrinology [address] [place] [address] Greg Nina, MARITZA.HEAD OF MUSIC [address] [place] [address] diabetes follow up with me in 3 months virtually 09/04/2024 11:30 AM EDT [facility] Gastroenterology [address] [address] Mika Rodgers MD [address] [place], [place] 14[address] Esophageal stricture [K22.2]Diverticuliti s of colon [K57.32] 11/20/2024 1:00 PM EDT [facility] Endocrinology [address] [place] [address] Valdez Suarez MD [address] [place] [address] [address] [place], [place] 4175[address] follow up in 6 months documented as of this encounter Visit Diagnoses Not on filedocumented in this encounter Care Teams Nut Picker Relationship Specialty Start Date End Date Farhat Cabezas MD PCP - General Family Medicine 01/13/11 Farhat Cabezas MD Referring Family Medicine 01/08/22 Farhat Cabezas MD 1265 [place] [address] Referring Family Medicine 07/26/24 documented as of this encounter
--- OUTSIDE RECORDS SUMMARY | 2024-08-27 07:48 | XMS_ITS | Encounter Summary ---
Demographics Address [address] [place] [address] Home Phone Mobile Phone Email Address Preferred Language ENG Marital Status Single Voodoo Affiliation Unknown Race White Ethnic Group Not or Lati no Author Organization [facility] Address [address] [place] [address] Care Team Providers Care Choral Teacher Name Role Phone Farhat Cabezas MD Primary Care Provider [phone] Farhat Cabezas MD Unavailable [phone] Farhat Cabezas MD Unavailable [phone] Source Comments In the event this [...] Patient Msg CB/Gynecology [address] [place] [address] [place] [address] [place] [address] Appointment Request Social History Tobacco [...] is lower risk 2 12/21/2022 Data from: https://www.neighborhoodatlas.medicine.[facility]/. Last address [...] 9:30 AM EDT [facility] Endocrinology [address] [place] [address] Greg Nina APRN.MISSION SYSTEMS ENGINEER [address] [place], [place] 135[address] diabetes follow up with me in 3 months virtually 09/04/2024 11:30 AM EDT [facility] Gastroenterology [address] [address] Mika Rodgers MD [address] [place] [address] Esophageal stricture [K22.2]Diverticuliti s of colon [K57.32] 11/20/2024 1:00 PM EDT [facility] Endocrinology [address] [place] [address] Valdez Suarez MD [address] [place] [address] [place], [place] 9004[address] follow up in 6 months documented as of this encounter Visit Diagnoses Not on filedocumented in this encounter Care Teams Choral Teacher Relationship Specialty Start Date End Date Farhat Cabezas MD PCP - General Family Medicine 01/13/11 Farhat Cabezas MD Referring Family Medicine 01/08/22 Farhat Cabezas MD [facility] [place] [address] Referring Family Medicine 07/26/24 documented as of this encounter
--- OUTSIDE RECORDS SUMMARY | 2024-08-27 07:48 | XMS_ITS | Encounter Summary ---
Demographics Address [address] [facility] [place] [address] Home Phone Mobile Phone Email Address Preferred Language ENG Marital Status Single Mormonism Affiliation Unknown Race White Ethnic Group Not or Lati no Author Organization [facility] Address [address] [place] [address] Care Team Providers Care Veterinarian Helper Name Role Phone Farhat Cabezas MD Primary Care Provider [phone] Farhat Cabezas MD Unavailable [phone] Farhat Cabezas MD Unavailable [phone] Source Comments In the event this information is protected by the Federal Confidentiality of Alcohol and Drug AbusePatient Records regulations: The Federal rules restrict any use of the information to criminally investigate or prosecute any alcohol or drug abuse patient.[facility] Encounter Details Date Type Department Care Team (Late st Contact Info) Description 07/15/2022 Patient Msg Endocrinology [address] [place] [address] Provider, Ccf Nba Portal Social History Tobacco [...] is lower risk 4 06/11/2022 Data from: https://www.neighborhoodatlas.[facility]/. Last address used for calculation [address] [facility] 06/11/2022 Comments No Sex and Gender [...] AM EDT [facility] Endocrinology [address] [place] [address] Greg Nina APRN.PRINTING SHOP SUPERVISOR [address] [place] [address] diabetes follow up with me in 3 months virtually 09/04/2024 11:30 AM EDT [facility] Gastroenterology [address] [address] Mika Rodgers MD [address] [place] [address] Esophageal stricture [K22.2]Diverticuliti s of colon [K57.32] 11/20/2024 1:00 PM EDT [facility] Endocrinology [address] [place] [address] Valdez Suarez MD [address] [facility] [address] [place], [place] [address] follow up in 6 months documented as of this encounter Visit Diagnoses Not on filedocumented in this encounter Care Teams Veterinarian Helper Relationship Specialty Start Date End Date Farhat Cabezas MD PCP - General Family Medicine 01/13/11 Farhat Cabezas MD Referring Family Medicine 01/08/22 Farhat Cabezas MD [address] [place] [address] Referring Family Medicine 07/26/24 documented as of this encounter
--- OUTSIDE RECORDS SUMMARY | 2024-08-27 07:48 | XMS_ITS | Encounter Summary ---
Demographics Address [address] [facility] [place] [address] Home Phone Mobile Phone Email Address [email or web address] Preferred Language ENG Marital Status Single Baptist Affiliation Unknown Race White Ethnic Group Not or Lati no Author Organization [facility] Address [address] [place] [address] Care Team Providers Care Safety Assistant Name Role Phone Farhat Cabezas MD Primary Care Provider [phone] Farhat Cabezas MD Unavailable [phone] Farhat Cabezas MD Unavailable [phone] Source Comments In the event this information is protected by the Federal Confidentiality of Alcohol and Drug AbusePatient Records regulations: The Federal rules restrict any use of the information to criminally investigate or prosecute any alcohol or drug abuse patient.[facility] Encounter Details Date Type Department Care Team (Late st Contact Info) Description 01/22/2016 Get Medical Advice General Surgery 9300 [place] [address] Marlin Chao (Hist)MD [address]50 [place] [address] RE: Non-Urgent Medical Question Social [...] Contact Info) Description 08/30/2024 9:30 AM EDT [facility] Endocrinology [address] [place] [address] Greg Nina APRN.FISH CULTURIST [address] [place], [place] 24[address] diabetes follow up with me in 3 months virtually 09/04/2024 11:30 AM EDT [facility] Gastroenterology [address] [address] Mika Rodgers MD 9500 [place], [place] [address] Esophageal stricture [K22.2]Diverticuliti s of colon [K57.32] 11/20/2024 1:00 PM EDT [facility] Endocrinology [address] [place] [address] Valdez Suarez MD [address] [place] [address] [place], [place] 138[address] follow up in 6 months documented as of this encounter Visit Diagnoses Not on filedocumented in this encounter Care Teams Safety Assistant Relationship Specialty Start Date End Date Farhat Cabezas MD PCP - General Family Medicine 01/13/11 Farhat Cabezas MD Referring Family Medicine 01/08/22 Farhat Cabezas MD [address] [place] [address] Referring Family Medicine 07/26/24 documented as of this encounter
--- OUTSIDE RECORDS SUMMARY | 2024-08-27 07:48 | XMS_ITS | Encounter Summary ---
Demographics Address [address] [place] [address] Home Phone Mobile Phone Email Address Preferred Language ENG Marital Status Single Temple Affiliation Unknown Race White Ethnic Group Not or Lati no Author Organization [facility] Address [facility] [place] [address] Care Team Providers Care Cook Helper Pastry Name Role Phone Farhat Cabezas MD Primary Care Provider [phone] Farhat Cabezas MD Unavailable [phone] Farhat Cabezas MD Unavailable [phone] Source Comments In the event this information is protected by the Federal Confidentiality of Alcohol and Drug AbusePatient Records regulations: The Federal rules restrict any use of the information to criminally investigate or prosecute any alcohol or drug abuse patient.[facility] Encounter Details Date Type Department Care Team (Late st Contact Info) Description 05/02/2023 Patient [facility] [address] [id number] Mathew Ferraro MD Regarding your upcoming endoscopy [...] is lower risk 2 12/21/2022 Data from: https://www.neighborhoodatlas.[facility].edu/. Last address used for calculation 543 [...] 08/30/2024 9:30 AM EDT [facility] [address] [place] [address] Greg Nina APRN.PRESETTER OPERATOR [address] [place], [place] [id number] diabetes follow up with me in 3 months virtually 09/04/2024 11:30 AM EDT [facility] Gastroenterology [address] [address] Mika Rodgers MD [address] [place] [address] Esophageal stricture [K22.2]Diverticuliti s of colon [K57.32] 11/20/2024 1:00 PM EDT [facility] Endocrinology [address] [place] [phone] Valdez Suarez MD [address] [place] [address] [place], [place] 8861735 follow up in 6 months documented as of this encounter Visit Diagnoses Not on filedocumented in this encounter Care Teams Cook Helper Pastry Relationship Specialty Start Date End Date Farhat Cabezas MD PCP - General Family Medicine 01/13/11 Farhat Cabezas MD Referring Family Medicine 01/08/22 Farhat Cabezas MD 1265 [place] [address] Referring Family Medicine 07/26/24 documented as of this encounter
--- OUTSIDE RECORDS SUMMARY | 2024-08-27 07:48 | XMS_ITS | Encounter Summary ---
Demographics Address [address] [place] [address] Home Phone Mobile Phone Email Address Preferred Language ENG Marital Status Single Tenriism Affiliation Unknown Race White Ethnic Group Not or Lati no Author Organization [facility] Address [address] [place] [address] Care Team Providers Care Food Service Director Name Role Phone Farhat Cabezas MD Primary Care Provider [phone] Farhat Cabezas MD Unavailable [phone] Farhat Cabezas MD Unavailable [phone] Source Comments In the event this information is protected by the Federal Confidentiality of Alcohol and Drug AbusePatient Records regulations: The Federal rules restrict any use of the information to criminally investigate or prosecute any alcohol or drug abuse patient.[facility] Encounter Details Date Type Department Care Team (Late st Contact Info) Description 10/05/2023 Patient Msg Cardiology [address] [facility] [place] [address] Provider, Ccf Appointment needs scheduling Social History [...] 2 12/21/2022 Data from: https://www.neighborhoodatlas.[facility]/. Last address used for calculation 543 [...] AM EDT [facility] Endocrinology [address] [place] [address] Greg Nina APRN.MANAGER STEEL [address] [place], [place] 8455439 diabetes follow up with me in 3 months virtually 09/04/2024 11:30 AM EDT [facility] Gastroenterology [address] [address] Mika Rodgers MD [address] [place] [address] Esophageal stricture [K22.2]Diverticuliti s of colon [K57.32] 11/20/2024 1:00 PM EDT [facility] Endocrinology [address] [place] [address] Valdez Suarez MD [address] [place], [place] [phone] follow up in 6 months documented as of this encounter Visit Diagnoses Not on filedocumented in this encounter Care Teams Food Service Director Relationship Specialty Start Date End Date Farhat Cabezas MD PCP - General Family Medicine 01/13/11 Farhat Cabezas MD Referring Family Medicine 01/08/22 Farhat Cabezas MD [address] [place] [address] Referring Family Medicine 07/26/24 documented as of this encounter
--- OUTSIDE RECORDS SUMMARY | 2024-08-27 07:48 | XMS_ITS | Encounter Summary ---
Demographics Address [address] [facility] [address] Home Phone Mobile Phone Email Address Preferred Language ENG Marital Status Single Restoration Affiliation Unknown Race White Ethnic Group Not or Lati no Author Organization [facility] Address [facility] [place] [address] Care Team Providers Care Casino Host Name Role Phone Farhat Cabezas MD Primary Care Provider [phone] Farhat Cabezas MD Unavailable [phone] Farhat Cabezas MD Unavailable [phone] Source Comments In the event this information is protected by the Federal Confidentiality of Alcohol and Drug AbusePatient Records regulations: The Federal rules restrict any use of the information to criminally investigate or prosecute any alcohol or drug abuse patient.[facility] Encounter Details Date Type Department Care Team (Late st Contact Info) Description 05/24/2024 Get Medical Advice Neurology 5334 [place] [address] Thaddeus Diggs MD 2629 [place] [address] MRI cervical slime Social History [...] lower risk 7 03/07/2024 Data from: https://www.neighborhoodatlas.medicine.[facility]/ . Last address used for [...] AM EDT [facility] Endocrinology [address] [place] [address] Greg Nina APRN.BURGLAR ALARM SUPERINTENDENT [address] [place] [address] diabetes follow up with me in 3 months virtually 09/04/2024 11:30 AM EDT [facility] Gastroenterology [address] [address] Mika Rodgers MD [address] [place], [place] [address] Esophageal stricture [K22.2]Diverticuliti s of colon [K57.32] 11/20/2024 1:00 PM EDT [facility] Endocrinology [address] [place] [address] Valdez Suarez MD [address] [place] [address] [address] [place], [place] 8098935 follow up in 6 months documented as of this encounter Visit Diagnoses Not on filedocumented in this encounter Care Teams Casino Host Relationship Specialty Start Date End Date Farhat Cabezas MD PCP - General Family Medicine 01/13/11 Farhat Cabezas MD Referring Family Medicine 01/08/22 Farhat Cabezas MD [address] [place] [address] Referring Family Medicine 07/26/24 documented as of this encounter
--- OUTSIDE RECORDS SUMMARY | 2024-08-27 07:48 | XMS_ITS | Encounter Summary ---
Demographics Address [address] [facility] [place] [address] Home Phone Mobile Phone Email Address Preferred Language ENG Marital Status Single Buddhism Affiliation Unknown Race White Ethnic Group Not or Lati no Author Organization [facility] Address [address] [place] [address] Care Team Providers Care Entertainment Reporter Name Role Phone Farhat Cabezas MD Primary Care Provider [phone] Farhat Cabezas MD Unavailable [phone] Farhat Cabezas MD Unavailable [phone] Source Comments In the event this information is protected by the Federal Confidentiality of Alcohol and Drug AbusePatient Records regulations: The Federal rules restrict any use of the information to criminally investigate or prosecute any alcohol or drug abuse patient.[facility] Encounter Details Date Type Department Care Team (Late st Contact Info) Description 01/10/2016 Get Medical Advice General Surgery 9300 [place] [address] Rachel Yi MD 6268 [place] [address] RE: Non-Urgent Medical Question Social [...] Contact Info) Description 08/30/2024 9:30 AM EDT [facility] Endocrinology [address] [place] [address] Greg Nina APRN.MICROMATIC HONE OPERATOR [address] [place], [place] 4272939 diabetes follow up with me in 3 months virtually 09/04/2024 11:30 AM EDT [facility] Gastroenterology [address] [address] Mika Rodgers MD 9050 [place] [address] Esophageal stricture [K22.2]Diverticuliti s of colon [K57.32] 11/20/2024 1:00 PM EDT [facility] Endocrinology [address] [place] [address] Valdez Suarez MD [address] [place] [address] [address] [place], [place] 003[address]35 follow up in 6 months documented as of this encounter Visit Diagnoses Not on filedocumented in this encounter Care Teams Entertainment Reporter Relationship Specialty Start Date End Date Farhat Cabezas MD PCP - General Family Medicine 01/13/11 Farhat Cabezas MD Referring Family Medicine 01/08/22 Farhat Cabezas MD [address] [place] [address] Referring Family Medicine 07/26/24 documented as of this encounter
--- OUTSIDE RECORDS SUMMARY | 2024-08-27 07:48 | XMS_ITS | Encounter Summary ---
Demographics Address [address] [facility] [place] [address] Home Phone Mobile Phone Email Address [email or web address] Preferred Language ENG Marital Status Single Congregational Affiliation Unknown Race White Ethnic Group Not or Lati no Author Organization [facility] [place] [address] Care Team Providers Care Conceptor Name Role Phone Farhat Cabezas MD Primary Care Provider [phone] Farhat Cabezas MD Unavailable [phone] Farhat Cabezas MD Unavailable [phone] Source Comments In the event this information is protected by the Federal Confidentiality of Alcohol and Drug AbusePatient Records regulations: The Federal rules restrict any use of the information to criminally investigate or prosecute any alcohol or drug abuse patient.[facility] Encounter Details Date Type Department Care Team (Late st Contact Info) Description 07/07/2024 Patient Msg Neurology 5334 [place] [address] Thaddeus Diggs MD 7245 [place] [address] MRI denial Social History Tobacco [...] risk 7 03/07/2024 Data from: https://www.neighborhoodatlas.medicine.[facility]/ . Last address used for calculation [...] EDT [facility] Endocrinology [address] [place] [address] Greg Nina APRN.DATA SECURITY COORDINATOR [address] [place] [address] diabetes follow up with me in 3 months virtually 09/04/2024 11:30 AM EDT [facility] Gastroenterology [address] [address] Mika Rodgers MD 9500 [place], [place] [address] Esophageal stricture [K22.2]Diverticuliti s of colon [K57.32] 11/20/2024 1:00 PM EDT [facility] Endocrinology [address] [place] [address] Valdez Suarez MD [address] [place] [address] [address] [place], [place] 0483235 follow up in 6 months documented as of this encounter Visit Diagnoses Not on filedocumented in this encounter Care Teams Conceptor Relationship Specialty Start Date End Date Farhat Cabezas MD PCP - General Family Medicine 01/13/11 Farhat Cabezas MD Referring Family Medicine 01/08/22 Farhat Cabezas MD [address] [place] [address] Referring Family Medicine 07/26/24 documented as of this encounter
--- OUTSIDE RECORDS SUMMARY | 2024-08-27 07:48 | XMS_ITS | Encounter Summary ---
Demographics Address [address] [place] [address] Home Phone Mobile Phone Email Address Preferred Language ENG Marital Status Single Caodaism Affiliation Unknown Race White Ethnic Group Not or Lati no Author Organization [facility] Address [address] [place] [address] Care Team Providers Care Industrial Painter Name Role Phone Farhat Cabezas MD Primary Care Provider [phone] Farhta Cabezas MD Unavailable [phone] Farhat Cabezas MD Unavailable [phone] Source Comments In the event this information is protected by the Federal Confidentiality of Alcohol and Drug AbusePatient Records regulations: The Federal rules restrict any use of the information to criminally investigate or prosecute any alcohol or drug abuse patient.[facility] Encounter Details Date Type Department Care Team (Late st Contact Info) Description 11/16/2023 [place] [address] Provider, Ccf MRI Screening Questionnaire Completion Required [...] is lower risk 2 12/21/2022 Data from: https://www.neighborhoodatlas.[facility]/. Last address used for calculation [address] [facility] W 12/21/2022 Comments No Sex [...] Assessment Author No 12/14/2016 12:43 PM Mnoa DuboseRn) (Hist), RN documented as of this [...] Info) Description 08/30/2024 9:30 AM EDT [facility] Endocrinology [address] [place] [address] Greg Nina APRN.FUR DESIGNER [address] [place] [address] diabetes follow up with me in 3 months virtually 09/04/2024 11:30 AM EDT [facility] Gastroenterology [address] [address] Mika Rodgers MD [address] [place] [place], [place] [address] Esophageal stricture [K22.2]Diverticuliti s of colon [K57.32] 11/20/2024 1:00 PM EDT [facility] Endocrinology [address] [place] [address] Valdez Suarez MD [address] [facility] [address] [place], [place] [address] follow up in 6 months documented as of this encounter Visit Diagnoses Not on filedocumented in this encounter Care Teams Industrial Painter Relationship Specialty Start Date End Date Farhat Cabezas MD PCP - General Family Medicine 01/13/11 Farhat Cabezas MD Referring Family Medicine 01/08/22 Farhat Cabezas MD 1265 [place] [address] Referring Family Medicine 07/26/24 documented as of this encounter
--- OUTSIDE RECORDS SUMMARY | 2024-08-27 07:48 | XMS_ITS | Encounter Summary ---
Demographics Address [address] [facility] [place] [address] Home Phone Mobile Phone Email Address Preferred Language ENG Marital Status Single Sabianism Affiliation Unknown Race White Ethnic Group Not or Lati no Author Organization [facility] Address [facility] [place] [address] Care Team Providers Care Boat Joiner Helper Name Role Phone Farhat Cabezas MD Primary Care Provider [phone] Farhat Cabezas MD Unavailable [phone] Farhat Cabezas MD Unavailable [phone] Source Comments In the event this information is protected by the Federal Confidentiality of Alcohol and Drug AbusePatient Records regulations: The Federal rules restrict any use of the information to criminally investigate or prosecute any alcohol or drug abuse patient.[facility] Encounter Details Date Type Department Care Team (Late st Contact Info) Description 10/12/2023 Get Medical Advice Neurology 5334 [place] [address] Thaddeus Diggs MD 1855 [place] [address] MRI / lab results Social [...] is lower risk 2 12/21/2022 Data from: https://www.neighborhoodatlas.medicine.[facility]/. Last address used for calculation [address] [...] 08/30/2024 9:30 AM EDT [facility] [address] [place] [address] Greg Nina, MARITZA.CAT SITTER [address] [place] [address] diabetes follow up with me in 3 months virtually 09/04/2024 11:30 AM EDT [facility] Gastroenterology [address] [address] Mika Rodgers MD [address] [place], [place] [address] Esophageal stricture [K22.2]Diverticuliti s of colon [K57.32] 11/20/2024 1:00 PM EDT [facility] Endocrinology [address] [place] [address] Valdez Suarez MD [address] [place] [address] [address] [place], [place] [address] follow up in 6 months documented as of this encounter Visit Diagnoses Not on filedocumented in this encounter Care Teams Boat Joiner Helper Relationship Specialty Start Date End Date Farhat Cabezas MD PCP - General Family Medicine 01/13/11 Farhat Cabezas MD Referring Family Medicine 01/08/22 [place] [address] [place] [address] Referring Family Medicine 07/26/24 documented as of this encounter
--- OUTSIDE RECORDS SUMMARY | 2024-08-27 07:48 | XMS_ITS | Encounter Summary ---
Demographics Address [address] [facility] [place] [address] Home Phone Mobile Phone Email Address Preferred Language ENG Marital Status Single Gnosticist Affiliation Unknown Race White Ethnic Group Not or Lati no Author Organization [facility] Address [address] [place] [address] Care Team Providers Care Dredge Pump Operator Name Role Phone Farhat Cabezas MD Primary Care Provider [phone] Farhat Cabezas MD Unavailable [phone] Farhat Cabezas MD Unavailable [phone] Source Comments In the event this information is protected by the Federal Confidentiality of Alcohol and Drug AbusePatient Records regulations: The Federal rules restrict any use of the information to criminally investigate or prosecute any alcohol or drug abuse patient.[facility] Encounter Details Date Type Department Care Team (Late st Contact Info) Description 05/28/2023 Patient Msg Endocrinology [address] [place] [address] Vinicius Márquez, TALENT ANALYST.RN INTERVENTIONAL [address] [place] [address] Appointment Request Social History Tobacco Use Types [...] is lower risk 2 12/21/2022 Data from: https://www.neighborhoodatlas.medicine.[facility]/. Last address [...] EDT [facility] Endocrinology [address] [place] [address] Greg Nina APRN.RN INTERVENTIONAL [address] [place] [address] diabetes follow up with me in 3 months virtually 09/04/2024 11:30 AM EDT [facility] Gastroenterology [address] [address] Mika Rodgers MD [address] [place] [address] Esophageal stricture [K22.2]Diverticuliti s of colon [K57.32] 11/20/2024 1:00 PM EDT [facility] Endocrinology [address] [place] [address] Valdez Suarez MD [address] [place] [address] [address] [place], [place] 387[address] follow up in 6 months documented as of this encounter Visit Diagnoses Not on filedocumented in this encounter Care Teams Dredge Pump Operator Relationship Specialty Start Date End Date Farhat Cabezas MD PCP - General Family Medicine 01/13/11 Farhat Cabezas MD Referring Family Medicine 01/08/22 Farhat Cabezas MD [address] [place] [address] Referring Family Medicine 07/26/24 documented as of this encounter
--- OUTSIDE RECORDS SUMMARY | 2024-08-27 07:48 | XMS_ITS | Encounter Summary ---
Demographics Address [address] [place] [address] Home Phone Mobile Phone Email Address Preferred Language ENG Marital Status Single Zoroastrian Affiliation Unknown Race White Ethnic Group Not or Lati no Author Organization [facility] Address [address] [place] [address] Care Team Providers Care Chemical Maker Name Role Phone Farhat Cabezas MD Primary Care Provider [phone] Farhat Cabezas MD Unavailable [phone] Farhat Cabezas MD Unavailable [phone] Source Comments In the event this information is protected by the Federal Confidentiality of Alcohol and Drug AbusePatient Records regulations: The Federal rules restrict any use of the information to criminally investigate or prosecute any alcohol or drug abuse patient.[facility] Encounter Details Date Type Department Care Team (Late st Contact Info) Description 11/15/2023 Patient Msg Cardiology [address] [place] [address] Provider, Sheldon Abreu 11/16 Appointment Canceled Social [...] risk 2 12/21/2022 Data from: https://www.neighborhoodatlas.[facility]/. Last address used [...] EDT [facility] Endocrinology [address] [place] [address] Greg Nina APRN.ELECTRICAL ENGINEERING DRAFTSPERSON [address] [facility], [place] [address] diabetes follow up with me in 3 months virtually 09/04/2024 11:30 AM EDT [facility] Gastroenterology [address] [address] Mika Rodgers MD [address] [place] [address] Esophageal stricture [K22.2]Diverticuliti s of colon [K57.32] 11/20/2024 1:00 PM EDT [facility] Endocrinology [address] [place] [address] Valdez Suarez MD [address] [place] [address] [place], [place] 487[address] follow up in 6 months documented as of this encounter Visit Diagnoses Not on filedocumented in this encounter Care Teams Chemical Maker Relationship Specialty Start Date End Date Farhat Cabezas MD PCP - General Family Medicine 01/13/11 Farhat Cabezas MD Referring Family Medicine 01/08/22 Farhat Cabezas MD [address] [place] [address] Referring Family Medicine 07/26/24 documented as of this encounter
--- OUTSIDE RECORDS SUMMARY | 2024-08-27 07:48 | XMS_ITS | Encounter Summary ---
Demographics Address [address] [facility] [place] [address] Home Phone Mobile Phone Email Address Preferred Language ENG Marital Status Single Buddhism Affiliation Unknown Race White Ethnic Group Not or Lati no Author Organization [facility] Address [address] [place] [address] Care Team Providers Care Biochemical Development Engineer Name Role Phone Farhat Cabezas MD Primary Care Provider [phone] Farhat Cabezas MD Unavailable [phone] Farhat Cabezas MD Unavailable [phone] Source Comments In the event this information is protected by the Federal Confidentiality of Alcohol and Drug AbusePatient Records regulations: The Federal rules restrict any use of the information to criminally investigate or prosecute any alcohol or drug abuse patient.[facility] Encounter Details Date Type Department Care Team (Late st Contact Info) Description 05/26/2016 Get Medical Advice General Surgery 9300 [place] [address] Marlin Chao (Hist)MD 7580 [place] [address] RE: Non-Urgent Medical Question Social [...] Description 08/30/2024 9:30 AM EDT [facility] Endocrinology [address] [place] [address] Greg Nina APRN.DIRECTOR OF GOLF [address] [place], [place] 412[address] diabetes follow up with me in 3 months virtually 09/04/2024 11:30 AM EDT [facility] Gastroenterology [address] [address] Mika Rodgers MD 9500 [place], [place] [address] Esophageal stricture [K22.2]Diverticuliti s of colon [K57.32] 11/20/2024 1:00 PM EDT [facility] Endocrinology [address] [place] [address] Valdez Suarez MD [address] [place] [address] [address] [place], [place] 4208835 follow up in 6 months documented as of this encounter Visit Diagnoses Not on filedocumented in this encounter Care Teams Biochemical Development Engineer Relationship Specialty Start Date End Date Farhat Cabezas MD PCP - General Family Medicine 01/13/11 Farhat Cabezas MD Referring Family Medicine 01/08/22 Farhat Cabezas MD [address] [place] [address] Referring Family Medicine 07/26/24 documented as of this encounter
--- OUTSIDE RECORDS SUMMARY | 2024-08-27 07:48 | XMS_ITS | Encounter Summary ---
Author Organization [facility] Address [address] [place] [address] Care Team Providers Care Machine Fitter Name Role Phone Farhat Cabezas MD Primary Care Provider [phone] Farhat Cabezas MD Unavailable [phone] Farhat Cabezas MD Unavailable [phone] Source Comments In the event this information is protected by the Federal Confidentiality of Alcohol and Drug AbusePatient Records regulations: The Federal rules restrict any use of the information to criminally investigate or prosecute any alcohol or drug abuse patient.[facility] Encounter Details Date Type Department Care Team (Late st Contact Info) Description 02/19/2016 Patient Msg Medical Records [address] [place] [address] Provider, Ccf medical workup/ Social History Tobacco [...] AM EDT [facility] Endocrinology [address] [place] [address] Greg Nina APRN.FOOD SUPERVISOR [address] [place] [address] diabetes follow up with me in 3 months virtually 09/04/2024 11:30 AM EDT [facility] Gastroenterology [address] [address] Mika Rodgers MD [address] [place] [address] Esophageal stricture [K22.2]Diverticuliti s of colon [K57.32] 11/20/2024 1:00 PM EDT [facility] Endocrinology [address] [place] [address] Valdez Suarez MD [address] [place] [address] [address] [place], [place] [phone] follow up in 6 months documented as of this encounter Visit Diagnoses Not on filedocumented in this encounter Care Teams Machine Fitter Relationship Specialty Start Date End Date Farhat Cabezas MD PCP - General Family Medicine 01/13/11 Farhat Cabezas MD Referring Family Medicine 01/08/22 Farhat Cabezas MD [address] [place] [address] Referring Family Medicine 07/26/24 documented as of this encounter
--- OUTSIDE RECORDS SUMMARY | 2024-08-27 07:48 | XMS_ITS | Encounter Summary ---
Demographics Address [address] [place] [address] Home Phone Mobile Phone Email Address Preferred Language ENG Marital Status Single Jain Affiliation Unknown Race White Ethnic Group Not or Lati no Author Organization [facility] Address [address] [place] [address] Care Team Providers Care City Auditor Name Role Phone Farhat Cabezas MD Primary Care Provider [phone] Farhat Cabezas MD Unavailable [phone] Farhat Cabezas MD Unavailable [phone] Source Comments In the event this information is protected by the Federal Confidentiality of Alcohol and Drug AbusePatient Records regulations: The Federal rules restrict any use of the information to criminally investigate or prosecute any alcohol or drug abuse patient.[facility] Encounter Details Date Type Department Care Team (Late st Contact Info) Description 12/26/2023 [place] [address] Provider, Ccf MRI Screening Questionnaire Completion Required [...] 2 12/21/2022 Data from: https://www.neighborhoodatlas.[facility]/. Last address used for calculation [address] [facility] [address] 12/21/2022 Comments No Sex and Gender [...] 08/30/2024 9:30 AM EDT [facility] Endocrinology [address] [place] [address] Greg Nina APRN.CLEANING SPECIALIST [address] [place] [address] diabetes follow up with me in 3 months virtually 09/04/2024 11:30 AM EDT [facility] Gastroenterology [address] [address] Mika Rodgers MD [address] [place] [place], [place] [address] Esophageal stricture [K22.2]Diverticuliti s of colon [K57.32] 11/20/2024 1:00 PM EDT [facility] Endocrinology [address] [place] [address] Valdez Suarez MD [address] [facility] [address] [place], [place] [address] follow up in 6 months documented as of this encounter Visit Diagnoses Not on filedocumented in this encounter Care Teams City Auditor Relationship Specialty Start Date End Date Farhat Cabezas MD PCP - General Family Medicine 01/13/11 Farhat Cabezas MD Referring Family Medicine 01/08/22 Farhat Cabezas MD 1265 [place] [address] Referring Family Medicine 07/26/24 documented as of this encounter
--- OUTSIDE RECORDS SUMMARY | 2024-08-27 07:48 | XMS_ITS | Encounter Summary ---
Demographics Address [address] [place] [address] Home Phone Mobile Phone Email Address Preferred Language ENG Marital Status Single Tenriism Affiliation Unknown Race White Ethnic Group Not or Lati no Author Organization [facility] Address [address] [place] [address] Care Team Providers Care Motor Vehicles Supervisor Name Role Phone Farhat Cabezas MD Primary Care Provider [phone] Farhat Cabezas MD Unavailable [phone] Farhat Cabezas MD Unavailable [phone] Source Comments In the event this information is protected by the Federal Confidentiality of Alcohol and Drug AbusePatient Records regulations: The Federal rules restrict any use of the information to criminally investigate or prosecute any alcohol or drug abuse patient.[facility] Encounter Details Date Type Department Care Team (Late st Contact Info) Description 07/19/2023 Patient Msg Cardiology [address] [facility] [place] [address] Ellyn Barraza, BRICKMASON HELPER.WHITE WORK CLEANER [address] [facility] [place] [address] Appointment Request Social History Tobacco Use [...] lower risk 2 12/21/2022 Data from: https://www.neighborhoodatlas.medicine.[facility].edu/. Last address used for calculation [address] [...] 08/30/2024 9:30 AM EDT [facility] Endocrinology [address] [place] [address] Greg Nina APRN.WHITE WORK CLEANER [address] [place] [address] diabetes follow up with me in 3 months virtually 09/04/2024 11:30 AM EDT [facility] Gastroenterology [address] [address] Mika Rodgers MD [address] [place] [address] Esophageal stricture [K22.2]Diverticuliti s of colon [K57.32] 11/20/2024 1:00 PM EDT [facility] Endocrinology [address] [place] [address] Valdez Suarez MD [address] [place] [address] [place] [address] follow up in 6 months documented as of this encounter Visit Diagnoses Not on filedocumented in this encounter Care Teams Motor Vehicles Supervisor Relationship Specialty Start Date End Date Farhat Cabezas MD PCP - General Family Medicine 01/13/11 Farhat Cabezas MD Referring Family Medicine 01/08/22 Farhat Cabezas MD 1265 [place] [address] Referring Family Medicine 07/26/24 documented as of this encounter
--- OUTSIDE RECORDS SUMMARY | 2024-08-27 07:48 | XMS_ITS | Encounter Summary ---
Demographics Address [address] [facility] [place] [address] Home Phone Mobile Phone Email Address Preferred Language ENG Marital Status Single Episcopalian Affiliation Unknown Race White Ethnic Group Not or Lati no Author Organization [facility] Address [facility] [place] [address] Care Team Providers Care Death Clearance Coordinator Name Role Phone Farhat Cabezas MD Primary Care Provider [phone] Farhat Cabezas MD Unavailable [phone] Farhat Cabezas MD Unavailable [phone] Source Comments In the event this [...] Description 09/27/2023 Get Medical Advice Neurology 5334 [place] [address] Thaddeus Diggs MD [address] [place] [address] Mri Social History Tobacco Use [...] Data from: https://www.neighborhoodatlas.medicine.[facility]/. Last address used for calculation [address] [...] 08/30/2024 9:30 AM EDT [facility] Endocrinology [address] [place] [address] Greg Nina, MARITZA.MARKETING COMMUNICATIONS ASSOCIATE [address] [place] [address] diabetes follow up with me in 3 months virtually 09/04/2024 11:30 AM EDT [facility] Gastroenterology [address] [address] Mika Rodgers MD [address] [place] [address] Esophageal stricture [K22.2]Diverticuliti s of colon [K57.32] 11/20/2024 1:00 PM EDT [facility] Endocrinology [address] [place] [address] Valdez Suarez MD [address] [place] [address] [address] [place], [place] [phone] follow up in 6 months documented as of this encounter Visit Diagnoses Not on filedocumented in this encounter Care Teams Death Clearance Coordinator Relationship Specialty Start Date End Date Farhat Cabezas MD PCP - General Family Medicine 01/13/11 Farhat Cabezas MD Referring Family Medicine 01/08/22 Farhat Cabezas MD 1265 [place] [address] Referring Family Medicine 07/26/24 documented as of this encounter
--- OUTSIDE RECORDS SUMMARY | 2024-08-27 07:48 | XMS_ITS | Encounter Summary ---
Demographics Address [address] [facility] [place] [address] Home Phone Mobile Phone Email Address Preferred Language ENG Marital Status Single Anglican Affiliation Unknown Race White Ethnic Group Not or Lati no Author Organization [facility] Address [address] [place] [address] Care Team Providers Care Service Or Work Dispatcher Chief Name Role Phone Farhat Cabezas MD Primary Care Provider [phone] Farhat Cabezas MD Unavailable [phone] Farhat Cabezas MD Unavailable [phone] Source Comments In the event this information is protected by the Federal Confidentiality of Alcohol and Drug AbusePatient Records regulations: The Federal rules restrict any use of the information to criminally investigate or prosecute any alcohol or drug abuse patient.[facility] Encounter Details Date Type Department Care Team (Late st Contact Info) Description 03/31/2016 Get Medical Advice General Surgery 9[address] [place] [address] Rachel Yi MD [address]45 [place] [address] RE: Non-Urgent Medical Question Social [...] Contact Info) Description 08/30/2024 9:30 AM EDT [facility] Endocrinology [address] [place] [address] Greg Nina APRN.SERVICE ADVOCATE CONTACT [address] [place], [place] [phone] diabetes follow up with me in 3 months virtually 09/04/2024 11:30 AM EDT [facility] Gastroenterology [address] [address] Mika Rodgers MD 23[address] [place] [address] Esophageal stricture [K22.2]Diverticuliti s of colon [K57.32] 11/20/2024 1:00 PM EDT [facility] Endocrinology [address] [place] [address] Valdez Suarez MD [address] [place] [address] [address] [place], [place] [address] follow up in 6 months documented as of this encounter Visit Diagnoses Not on filedocumented in this encounter Care Teams Service Or Work Dispatcher Chief Relationship Specialty Start Date End Date Farhat Cabezas MD PCP - General Family Medicine 01/13/11 Farhat Cabezas MD Referring Family Medicine 01/08/22 Farhat Cabezas MD [address] [place] [address] Referring Family Medicine 07/26/24 documented as of this encounter
--- OUTSIDE RECORDS SUMMARY | 2024-08-27 07:48 | XMS_ITS | Encounter Summary ---
Demographics Address [address] [place] [address] Home Phone Mobile Phone Email Address Preferred Language ENG Marital Status Single Sikh Affiliation Unknown Race White Ethnic Group Not or Lati no Author Organization [facility] Address [address] [place] [address] Care Team Providers Care Rip Saw Operator Name Role Phone Farhat Cabezas MD Primary Care Provider [phone] Farhat Cabezas MD Unavailable [phone] Farhat Cabezas MD Unavailable [phone] Source Comments In the event this information is protected by the Federal Confidentiality of Alcohol and Drug AbusePatient Records regulations: The Federal rules restrict any use of the information to criminally investigate or prosecute any alcohol or drug abuse patient.[facility] Encounter Details Date Type Department Care Team (Late st Contact Info) Description 05/28/2023 Patient Msg [facility]ocrinology [address] [facility] [place] [address] Valdez Suarez MD [address] [place] [address] [place] [address] Appointment Request Social History Tobacco Use [...] is lower risk 2 12/21/2022 Data from: https://www.neighborhoodatlas.medicine.[facility]/. Last [...] 08/30/2024 9:30 AM EDT [facility] Endocrinology [address] [place] [address] Greg Nina, WEFT STRAIGHTENER.RESTAURANT CREW [address] [place], [place] 4574039 diabetes follow up with me in 3 months virtually 09/04/2024 11:30 AM EDT [facility] Gastroenterology [address] [address] Mika Rodgers MD [address] [place] [address] Esophageal stricture [K22.2]Diverticuliti s of colon [K57.32] 11/20/2024 1:00 PM EDT [facility] Endocrinology [address] [place] [address] Valdez Suarez MD [address] [place] [address] [place], [place] [address] follow up in 6 months documented as of this encounter Visit Diagnoses Not on filedocumented in this encounter Care Teams Rip Saw Operator Relationship Specialty Start Date End Date Farhat Cabezas MD PCP - General Family Medicine 01/13/11 Farhat Cabezas MD Referring Family Medicine 01/08/22 Farhat Cabezas MD 1265 [place] [address] Referring Family Medicine 07/26/24 documented as of this encounter
--- OUTSIDE RECORDS SUMMARY | 2024-08-27 07:48 | XMS_ITS | Encounter Summary ---
Demographics Address [address] [place] [address] Home Phone Mobile Phone Email Address Preferred Language ENG Marital Status Single Alevism Affiliation Unknown Race White Ethnic Group Not or Lati no Author Organization [facility] Address [address] [place] [address] Care Team Providers Care Criminal Justice Program Director Name Role Phone Farhat Cabezas MD Primary Care Provider [phone] Farhat Cabezas MD Unavailable [phone] Farhat Cabezas MD Unavailable [phone] Source Comments In the event this information is protected by the Federal Confidentiality of Alcohol and Drug AbusePatient Records regulations: The Federal rules restrict any use of the information to criminally investigate or prosecute any alcohol or drug abuse patient.[facility] Encounter Details Date Type Department Care Team (Late st Contact Info) Description 11/23/2023 Patient Msg Radiology 5700 [place] [address] Provider, Cc CT Scan 12/14/2023 Social History [...] risk 2 12/21/2022 Data from: https://www.neighborhoodatlas.[facility]/. Last address used [...] Description 08/30/2024 9:30 AM EDT [facility] Endocrinology [address] [place] [address] Greg Nina APRN.BENEFITS TECHNICIAN [address] [place], [place] 94[address]39 diabetes follow up with me in 3 months virtually 09/04/2024 11:30 AM EDT [facility] Gastroenterology [address] [address] Mika Rodgers MD [address] [place] [address] Esophageal stricture [K22.2]Diverticuliti s of colon [K57.32] 11/20/2024 1:00 PM EDT [facility] Endocrinology [address] [place] [address] Valdez Suarez MD [address] [facility] [address] [place], [place] [address] follow up in 6 months documented as of this encounter Visit Diagnoses Not on filedocumented in this encounter Care Teams Criminal Justice Program Director Relationship Specialty Start Date End Date Farhat Cabezas MD PCP - General Family Medicine 01/13/11 Farhat Cabezas MD Referring Family Medicine 01/08/22 Farhat Cabezas MD 1265 [place] [address] Referring Family Medicine 07/26/24 documented as of this encounter
--- OUTSIDE RECORDS SUMMARY | 2024-08-27 07:48 | XMS_ITS | Encounter Summary ---
Demographics Address [address] [facility] [place] [address] Home Phone Mobile Phone Email Address Preferred Language ENG Marital Status Single Mandaeism Affiliation Unknown Race White Ethnic Group Not or Lati no Author Organization [facility] Address [address] [place] [address] Care Team Providers Care Senior Support Engineer Name Role Phone Farhat Cabezas MD Primary Care Provider [phone] Farhat Cabezas MD Unavailable [phone] Farhat Cabezas MD Unavailable [phone] Source Comments In the event this information is protected by the Federal Confidentiality of Alcohol and Drug AbusePatient Records regulations: The Federal rules restrict any use of the information to criminally investigate or prosecute any alcohol or drug abuse patient.[facility] Encounter Details Date Type Department Care Team (Late st Contact Info) Description 12/23/2015 Get Medical Advice General Surgery 9300 [place] [address] Rachel Yi MD [address] [place] [address] RE: Test Result Question Social [...] Info) Description 08/30/2024 9:30 AM EDT [facility] Endocrinology [address] [place] [address] Greg Nina APRN.TARGET NETWORK ANALYST [address] [place], [place] [phone] diabetes follow up with me in 3 months virtually 09/04/2024 11:30 AM EDT [facility] Gastroenterology [address] [address] Mika Rodgers MD [address] [place], [place] [address] Esophageal stricture [K22.2]Diverticuliti s of colon [K57.32] 11/20/2024 1:00 PM EDT [facility] Endocrinology [address] [place] [address] Valdez Suarez MD [address] [place] [address] [address] [place], [place] 480[address]35 follow up in 6 months documented as of this encounter Visit Diagnoses Not on filedocumented in this encounter Care Teams Senior Support Engineer Relationship Specialty Start Date End Date Farhat Cabezas MD PCP - General Family Medicine 01/13/11 Farhat Cabezas MD Referring Family Medicine 01/08/22 Farhat Cabezas MD [address] [place] [address] Referring Family Medicine 07/26/24 documented as of this encounter
--- OUTSIDE RECORDS SUMMARY | 2024-08-27 07:48 | XMS_ITS | Encounter Summary ---
Demographics Address [address] [place] [address] Home Phone Mobile Phone Email Address Preferred Language ENG Marital Status Single Latter-Day Affiliation Unknown Race White Ethnic Group Not or Lati no Author Organization [facility] Address [address] [place] [address] Care Team Providers Care Powerhouse Electrician Apprentice Name Role Phone Farhat Cabezas MD Primary Care Provider [phone] Farhat Cabezas MD Unavailable [phone] Farhat Cabezas MD Unavailable [phone] Source Comments In the event this information is protected by the Federal Confidentiality of Alcohol and Drug AbusePatient Records regulations: The Federal rules restrict any use of the information to criminally investigate or prosecute any alcohol or drug abuse patient.[facility] Encounter Details Date Type Department Care Team (Late st Contact Info) Description 10/25/2023 Get Medical Advice Gastroenterology [address] [address] Adilene Morgan APRN.[facility] [address] [place] [address] Question Social History Tobacco Use [...] lower risk 2 12/21/2022 Data from: https://www.neighborhoodatlas.medicine.[facility]/. Last address used for calculation [address] [...] Date Author No 12/14/2016 12:43 PM Mona uDbose (Rn) (Hist), RN documented in this encounter Plan of Treatment Upcoming Encounters Date Type Department Care Team (Late st Contact Info) Description 08/30/2024 9:30 AM EDT [facility] Endocrinology [address] [place] [address] Greg Nina APRN.MILL ORDER SCHEDULER [address] [place] [address] diabetes follow up with me in 3 months virtually 09/04/2024 11:30 AM EDT [facility] Gastroenterology [address] [address] Mika Rodgers MD [address] [place] [address] Esophageal stricture [K22.2]Diverticuliti s of colon [K57.32] 11/20/2024 1:00 PM EDT [facility] Endocrinology [address] [place] [address] Valdez Suarez MD [address] [place] [address] [place], [place] [address] follow up in 6 months documented as of this encounter Visit Diagnoses Not on filedocumented in this encounter Care Teams Powerhouse Electrician Apprentice Relationship Specialty Start Date End Date Farhat Cabezas MD PCP - General Family Medicine 01/13/11 Farhat Cabezas MD Referring Family Medicine 01/08/22 Farhat Cabezas MD [address] [place] [address] Referring Family Medicine 07/26/24 documented as of this encounter
--- OUTSIDE RECORDS SUMMARY | 2024-08-27 07:49 | XMS_ITS | Encounter Summary ---
Demographics Address [address] [place] [address] Home Phone Mobile Phone Email Address faisal [employer] Preferred Language ENG Marital Status Single Spiritism Affiliation Unknown Race White Ethnic Group Not or Lati no Author Organization [facility] Address [address] [place] [address] Care Team Providers Care Doll Dresser Name Role Phone Farhat Cabezas MD Primary Care Provider [phone] Farhat Cabezas MD Unavailable [phone] Farhat Cabezas MD Unavailable [phone] Source Comments In the event this information is protected by the Federal Confidentiality of Alcohol and Drug AbusePatient Records regulations: The Federal rules restrict any use of the information to criminally investigate or prosecute any alcohol or drug abuse patient.[facility] Encounter Details Date Type Department Care Team (Late st Contact Info) Description 05/27/2021 Get Medical Advice [facility] [address] [place], [place] [address] Rachel Yi MD 9500 [place] [address] weight managment Social History Tobacco [...] N ot on file 01/16/2020 Data from: https://www.neighborhoodatlas.medicine.[facility]/. Last address used for [...] [facility] Endocrinology [address] [place] [address] Greg Nina APRN.STRUCTURAL ANALYST [address] [place] [address] diabetes follow up with me in 3 months virtually 09/04/2024 11:[address] [facility] Gastroenterology [address] [address] Mika Rodgers MD 9500 [place] [address] Esophageal stricture [K22.2]Diverticuliti s of colon [K57.32] 11/20/2024 1:[address] [facility] Endocrinology [address] [place] [address] Valdez Suarez MD [address] [place] [address] [address] [place], [place] [address] follow up in 6 months documented as of this encounter Visit Diagnoses Not on filedocumented in this encounter Care Teams Doll Dresser Relationship Specialty Start Date End Date Farhat Cabezas MD PCP - General Family Medicine 01/13/11 Farhat Cabezas MD Referring Family Medicine 01/08/22 Farhat Cabezas MD [address] [place] [address] Referring Family Medicine 07/26/24 documented as of this encounter
--- OUTSIDE RECORDS SUMMARY | 2024-08-27 07:49 | XMS_ITS | Encounter Summary ---
Author Organization [facility] Address [address] [place] [address] Care Team Providers Care Regional Commercial Sales Manager Name Role Phone Farhat Cabezas MD Primary Care Provider [phone] Farhat Cabezas MD Unavailable [phone] Farhat Cabezas MD Unavailable [phone] Source Comments In the event this information is protected by the Federal Confidentiality of Alcohol and Drug AbusePatient Records regulations: The Federal rules restrict any use of the information to criminally investigate or prosecute any alcohol or drug abuse patient.[facility] Encounter Details Date Type Department Care Team (Late st Contact Info) Description 10/06/2023 Patient Msg Ophthalmology [address] [place], [place] [phone] Theron Barajas OD [address] [place] [address] Appointment Request Social History Tobacco [...] is lower risk 2 12/21/2022 Data from: https://www.neighborhoodatlas.medicine.[facility]/. Last address used for [...] 08/30/2024 9:30 AM EDT [facility] Endocrinology [address] [place] [address] Greg Nina APRN.CROWN IRONER OPERATOR [address] [place] [address] diabetes follow up with me in 3 months virtually 09/04/2024 11:30 AM EDT [facility] Gastroenterology [address] [address] Mika Rodgers MD [address] [place] [address] Esophageal stricture [K22.2]Diverticuliti s of colon [K57.32] 11/20/2024 1:00 PM EDT [facility] [address] [place] [address] Valdez Suarez MD [address] [place] [address] [address] [place], [place] [address] follow up in 6 months documented as of this encounter Visit Diagnoses Not on filedocumented in this encounter Care Teams Regional Commercial Sales Manager Relationship Specialty Start Date End Date Farhat Cabezas MD PCP - General Family Medicine 01/13/11 Farhat Cabezas MD Referring Family Medicine 01/08/22 Farhat Cabezas MD [address] [place] [address] Referring Family Medicine 07/26/24 documented as of this encounter
--- OUTSIDE RECORDS SUMMARY | 2024-08-27 07:49 | XMS_ITS | Encounter Summary ---
Demographics Address [address] [place] [address] Home Phone Mobile Phone Email Address Preferred Language ENG Marital Status Single Congregation Affiliation Unknown Race White Ethnic Group Not or Lati no Author Organization [facility] Address [address] [place] [address] Care Team Providers Care Supervisor Partial Denture Department Name Role Phone Farhat Cabezas MD Primary Care Provider [phone] Farhat Cabezas MD Unavailable [phone] Farhat Cabezas MD Unavailable [phone] Source Comments In the event this information is protected by the Federal Confidentiality of Alcohol and Drug AbusePatient Records regulations: The Federal rules restrict any use of the information to criminally investigate or prosecute any alcohol or drug abuse patient.[facility] Encounter Details Date Type Department Care Team (Late st Contact Info) Description 02/15/2024 [place] [address] Provider, Ccf MRI Screening Questionnaire Completion Required [...] 2 12/21/2022 Data from: https://www.neighborhoodatlas.[facility]/. Last address used for calculation [address] [facility] W 12/21/2022 Comments No Sex [...] 08/30/2024 9:30 AM EDT [facility] Endocrinology [address] [place] [address] Greg Nina APRN.STRETCHER HELPER [address] [place] [address] diabetes follow up with me in 3 months virtually 09/04/2024 11:30 AM EDT [facility] Gastroenterology [address] [address] Mika Rodgers MD [address] [place] [place], [place] [address] Esophageal stricture [K22.2]Diverticuliti s of colon [K57.32] 11/20/2024 1:00 PM EDT [facility] Endocrinology [address] [place] [address] Valdez Suarez MD [address] [place], [place] [address] follow up in 6 months documented as of this encounter Visit Diagnoses Not on filedocumented in this encounter Care Teams Supervisor Partial Denture Department Relationship Specialty Start Date End Date Farhat Cabezas MD PCP - General Family Medicine 01/13/11 Farhat Caebzas MD Referring Family Medicine 01/08/22 Farhat Cabezas MD 1265 [place] [address] Referring Family Medicine 07/26/24 documented as of this encounter
--- OUTSIDE RECORDS SUMMARY | 2024-08-27 07:49 | XMS_ITS | Encounter Summary ---
Author Organization [facility] Address [address] [place] [address] Care Team Providers Care Meeting Facilitator Name Role Phone Farhat Cabezas MD Primary Care Provider [phone] Farhat Cabezas MD Unavailable [phone] Farhat Cabezas MD Unavailable [phone] Source Comments In the event this [...] Description 08/04/2018 Patient Msg General Surgery [address] [place] [address] Provider, Ccf Medication refill Social [...] AM EDT [facility] Endocrinology [address] [place] [address] Greg Nina APRN.SCHOOL PSYCHOLOGIST ASSISTANT [address] [place] [address] diabetes follow up with me in 3 months virtually 09/04/2024 11:30 AM EDT [facility] Gastroenterology [address] [address] Mika Rodgers MD 0420 [place] [address] Esophageal stricture [K22.2]Diverticuliti s of colon [K57.32] 11/20[facility]24 [facility] [address] [place] [address] Valdez Suarez MD [address] [place] [address] [address] [place], [place] [address] follow up in 6 months documented as of this encounter Visit Diagnoses Not on filedocumented in this encounter Care Teams Meeting Facilitator Relationship Specialty Start Date End Date Farhat Cabezas MD PCP - General Family Medicine 01/13/11 Farhat Cabezas MD Referring Family Medicine 01/08/22 Farhat Cabezas MD [address] [place] [address] Referring Family Medicine 07/26/24 documented as of this encounter
--- OUTSIDE RECORDS SUMMARY | 2024-08-27 07:49 | XMS_ITS | Encounter Summary ---
Demographics Address [address] [place] [address] Home Phone Mobile Phone Email Address Preferred Language ENG Marital Status Single Jainism Affiliation Unknown Race White Ethnic Group Not or Lati no Author Organization [facility] Address [address] [place] [address] Care Team Providers Care Magazine Grinder Loader Name Role Phone Farhat Cabezas MD Primary Care Provider [phone] Farhat Cabezas MD Unavailable [phone] Farhat Cabezas MD Unavailable [phone] Source Comments In the event this information is protected by the Federal Confidentiality of Alcohol and Drug AbusePatient Records regulations: The Federal rules restrict any use of the information to criminally investigate or prosecute any alcohol or drug abuse patient.[facility] Encounter Details Date Type Department Care Team (Late st Contact Info) Description 04/22/2021 Get Medical Advice [facility]inology [address] [facility], [place] [address] Valdez Suarez MD [address] [place] [address] [place] [address] Suspicious nodule / thyroid Social History [...] ot on file 01/16/2020 Data from: https://www.neighborhoodatlas.medicine.[facility]/. Last address used for [...] with repeat US in 6 months, sent Reddit message documented in this encounter Plan of Treatment Upcoming Encounters Date Type Department Care Team (Late st Contact Info) Description 08/30/2024 9:30 AM EDT [facility] Endocrinology [address] [place] [address] Greg Nina, MARITZA.[facility] [address] [place] [address] diabetes follow up with me in 3 months virtually 09/04/2024 11:30 AM EDT [facility] Gastroenterology [address] [address] Mika Rodgers MD [address] [place] [address] Esophageal stricture [K22.2]Diverticuliti s of colon [K57.32] 11/20/2024 1:00 PM EDT [facility] Endocrinology [address] [place] [address] Valdez Suarez MD [address] [place] [address] [address] [place], [place] [phone] follow up in 6 months documented as of this encounter Visit Diagnoses Diagnosis Hx of papillary thyroid carcinoma- Primary Personal history of malignant neoplasm of thyroid documented in this encounter Care Teams Magazine Grinder Loader Relationship Specialty Start Date End Date Farhat Cabezas MD PCP - General Family Medicine 01/13/11 Farhat Cabezas MD Referring Family Medicine 01/08/22 Farhat Cabezas MD [address] [place] [address] Referring Family Medicine 07/26/24 documented as of this encounter
--- OUTSIDE RECORDS SUMMARY | 2024-08-27 07:49 | XMS_ITS | Encounter Summary ---
Demographics Address [address] [place] [address] Home Phone Mobile Phone Email Address Preferred Language ENG Marital Status Single Voodoo Affiliation Unknown Race White Ethnic Group Not or Lati no Author Organization [facility] Address [address] [place] [address] Care Team Providers Care Piler Name Role Phone Farhat Cabezas MD Primary Care Provider [phone] Farhat Cabezas MD Unavailable [phone] Farhat Cabezas MD Unavailable [phone] Source Comments In the event this information is protected by the Federal Confidentiality of Alcohol and Drug AbusePatient Records regulations: The Federal rules restrict any use of the information to criminally investigate or prosecute any alcohol or drug abuse patient.[facility] Encounter Details Date Type Department Care Team (Late st Contact Info) Description 06/09/2021 Get Medical Advice Neurology [address] [place] [address] Jaelyn Rangel MD NO FORWARDING [...] on file 01/16/2020 Data from: https://www.neighborhoodatlas.[facility]/. Last address used [...] Arnold RN - 06/09/2021 2:00 PM EDT [employer] message routed to provider for review. documented in this encounter Plan of Treatment Upcoming Encounters Date Type Department Care Team (Late st Contact Info) Description 08/30/2024 9:30 AM EDT [facility] Endocrinology [address] [place] [address] Greg Nina APRN.MACHINE ENGINEER [address] [place], [place] [phone] diabetes follow up with me in 3 months virtually 09/04/2024 11:30 AM EDT [facility] Gastroenterology [address] [address] Mika Rodgers MD 9500 [place], [place] [address] Esophageal stricture [K22.2]Diverticuliti s of colon [K57.32] 11/20/2024 1:00 PM EDT [facility] Endocrinology [address] [place] [address] Valdez Suarez MD [address] [place] [address] [address] [place], [place] [address]487[address] follow up in 6 months documented as of this encounter Visit Diagnoses Not on filedocumented in this encounter Care Teams Piler Relationship Specialty Start Date End Date Farhat Cabezas MD PCP - General Family Medicine 01/13/11 Farhat Cabezas MD Referring Family Medicine 01/08/22 Farhat Cabezas MD 1265 [place] [address] Referring Family Medicine 07/26/24 documented as of this encounter
--- OUTSIDE RECORDS SUMMARY | 2024-08-27 07:49 | XMS_ITS | Encounter Summary ---
Demographics Address [address] [place] [address] Home Phone Mobile Phone Email Address Preferred Language ENG Marital Status Single Islam Affiliation Unknown Race White Ethnic Group Not or Lati no Author Organization [facility] Address [address] [place] [address] Care Team Providers Care Assembly Line Machine Operator Name Role Phone Farhat Cabezas MD Primary Care Provider [phone] Farhat Cabezas MD Unavailable [phone] Farhat Cabezas MD Unavailable [phone] Source Comments In the event this information is protected by the Federal Confidentiality of Alcohol and Drug AbusePatient Records regulations: The Federal rules restrict any use of the information to criminally investigate or prosecute any alcohol or drug abuse patient.[facility] Encounter Details Date Type Department Care Team (Late st Contact Info) Description 09/15/2021 [place] [address] Provider, Ccf MRI Screening Questionnaire Completion Required [...] N ot on file 07/19/2021 Data from: https://www.neighborhoodatlas.[facility]/. Last address used for calculation [address] 07/19/2021 Comments No Sex and Gender [...] 9:30 AM EDT [facility] Endocrinology [address] [place] [address] Greg Nina, MARITZA.ICU TECH [address] [place] [address] diabetes follow up with me in 3 months virtually 09/04/2024 11:30 AM EDT [facility] Gastroenterology [address] [address] Mika Rodgers MD [address] [place], [place] [address] Esophageal stricture [K22.2]Diverticuliti s of colon [K57.32] 11/20/2024 1:00 PM EDT [facility] Endocrinology [address] [place] [address] Valdez Suarez MD [address] [place] [address] [address] [place], [place] 2253935 follow up in 6 months documented as of this encounter Visit Diagnoses Not on filedocumented in this encounter Care Teams Assembly Line Machine Operator Relationship Specialty Start Date End Date Farhat Cabezas MD PCP - General Family Medicine 01/13/11 Farhat Cabezas MD Referring Family Medicine 01/08/22 Farhat Cabezas MD 12[address] [place] [address] Referring Family Medicine 07/26/24 documented as of this encounter
--- OUTSIDE RECORDS SUMMARY | 2024-08-27 07:49 | XMS_ITS | Encounter Summary ---
Demographics Address [address] [facility] [place] [address] Home Phone Mobile Phone Email Address Preferred Language ENG Marital Status Single Moravian Affiliation Unknown Race White Ethnic Group Not or Lati no Author Organization [facility] Address [facility] [place] [address] Care Team Providers Care Burner Machine Operator Name Role Phone Farhat Cabezas MD Primary Care Provider [phone] Farhat Cabezas MD Unavailable [phone] Farhat Cabezas MD Unavailable [phone] Source Comments In the event this information is protected by the Federal Confidentiality of Alcohol and Drug AbusePatient Records regulations: The Federal rules restrict any use of the information to criminally investigate or prosecute any alcohol or drug abuse patient.[facility] Encounter Details Date Type Department Care Team (Late st Contact Info) Description 09/18/2021 Patient Msg Sleep Psychology 5[address] [place] [address] [place] [address] [facility] [address] [place] [phone] follow up Social History Tobacco Use Types [...] N ot on file 07/19/2021 Data from: https://www.neighborhoodatlas.medicine.[facility]/. Last address used for calculation [address] [...] AM EDT [facility] Endocrinology [address] [place] [address] Greg Nina APRN.PRECISION JIG GRINDER [address] [place] [address] diabetes follow up with me in 3 months virtually 09/04/2024 11:30 AM EDT [facility] Gastroenterology [address] [address] Mika Rodgers MD 9920 [place] [address] Esophageal stricture [K22.2]Diverticuliti s of colon [K57.32] 11/20/2024 1:00 PM EDT [facility] Endocrinology [address] [place] [address] Valdez Suarez MD [address] [place] [address] [address] [place], [place] 5492235 follow up in 6 months documented as of this encounter Visit Diagnoses Not on filedocumented in this encounter Care Teams Burner Machine Operator Relationship Specialty Start Date End Date Farhat Cabezas MD PCP - General Family Medicine 01/13/11 Farhat Cabezas MD Referring Family Medicine 01/08/22 Farhat Cabezas MD [address] [place] [address] Referring Family Medicine 07/26/24 documented as of this encounter
--- OUTSIDE RECORDS SUMMARY | 2024-08-27 07:49 | XMS_ITS | Encounter Summary ---
Demographics Address [address] [place] [address] Home Phone Mobile Phone Email Address Preferred Language ENG Marital Status Single Scientologist Affiliation Unknown Race White Ethnic Group Not or Lati no Author Organization [facility] Address [address] [place] [address] Care Team Providers Care Fire Inspector Name Role Phone Farhat Cabezas MD Primary Care Provider [phone] Farhat Cabezas MD Unavailable [phone] Farhat Cabezas MD Unavailable [phone] Source Comments In the event this information is protected by the Federal Confidentiality of Alcohol and Drug AbusePatient Records regulations: The Federal rules restrict any use of the information to criminally investigate or prosecute any alcohol or drug abuse patient.[facility] Encounter Details Date Type Department Care Team (Late st Contact Info) Description 02/04/2024 Patient [facility] [place] [address] Renetta Moore RPh At your next appointment, choose [facility]. Social History Tobacco Use Types [...] is lower risk 2 12/21/2022 Data from: https://www.neighborhoodatlas.[facility]/. Last address used for calculation [...] 08/30/2024 9:30 AM EDT [facility] Endocrinology [address] [place] [address] Greg Nina APRN.RADIOLOGIC TECH [address] [place], [place] [address] diabetes follow up with me in 3 months virtually 09/04/2024 11:30 AM EDT [facility] Gastroenterology [address] [address] Mika Rodgers MD [address] [place] [address] Esophageal stricture [K22.2]Diverticuliti s of colon [K57.32] 11/20/2024 1:00 PM EDT [facility] Endocrinology [address] [place] [address] Valdez Suarez MD [address] [place] [address] [place] [address] follow up in 6 months documented as of this encounter Visit Diagnoses Not on filedocumented in this encounter Care Teams Fire Inspector Relationship Specialty Start Date End Date Farhat Cabezas MD PCP - General Family Medicine 01/13/11 Farhat Cabezas MD Referring Family Medicine 01/08/22 Farhat Cabezas MD [address] [place] [address] Referring Family Medicine 07/26/24 documented as of this encounter
--- OUTSIDE RECORDS SUMMARY | 2024-08-27 07:49 | XMS_ITS | Encounter Summary ---
Demographics Address [address] [place] [address] Home Phone Mobile Phone Email Address Preferred Language ENG Marital Status Single Congregation Affiliation Unknown Race White Ethnic Group Not or Lati no Author Organization [facility] Address [address] [place] [address] Care Team Providers Care New Autos Delivery Driver Name Role Phone Farhat Cabezas MD Primary Care Provider [phone] Farhat Cabezas MD Unavailable [phone] Farhat Cabezas MD Unavailable [phone] Source Comments In the event this information is protected by the Federal Confidentiality of Alcohol and Drug AbusePatient Records regulations: The Federal rules restrict any use of the information to criminally investigate or prosecute any alcohol or drug abuse patient.[facility] Encounter Details Date Type Department Care Team (Late st Contact Info) Description 05/25/2021 Patient Msg [facility] [address] [place], [place] [phone] Rachel Yi MD 9500 [place] [address] Request an Appointment Social History [...] N ot on file 01/16/2020 Data from: https://www.neighborhoodatlas.medicine.[facility]/. Last address used for [...] AM EDT [facility] Endocrinology [address] [place] [address] Greg Nina APRN.PRISONER CLASSIFICATION INTERVIEWER [address] [place] [address] diabetes follow up with me in 3 months virtually 09/04/2024 11:30 AM EDT [facility] Gastroenterology [address] [address] Mika Rodgers MD 9500 [place] [address] Esophageal stricture [K22.2]Diverticuliti s of colon [K57.32] 11/20/2024 1:00 PM EDT [facility] Endocrinology [address] [place] [address] Valdez Suarez MD [address] [place] [address] [address] [place], [place] 3546935 follow up in 6 months documented as of this encounter Visit Diagnoses Not on filedocumented in this encounter Care Teams New Autos Delivery Driver Relationship Specialty Start Date End Date Farhat Cabezas MD PCP - General Family Medicine 01/13/11 Farhat Cabezas MD Referring Family Medicine 01/08/22 Farhat Cabezas MD [address] [place] [address] Referring Family Medicine 07/26/24 documented as of this encounter
--- OUTSIDE RECORDS SUMMARY | 2024-08-27 07:49 | XMS_ITS | Encounter Summary ---
Demographics Address [address] [facility] [place] [address] Home Phone Mobile Phone Email Address Preferred Language ENG Marital Status Single Latter-Day Affiliation Unknown Race White Ethnic Group Not or Lati no Author Organization [facility] Address [address] [place] [address] Care Team Providers Care Trolley Operator Name Role Phone Farhat Cabezas MD Primary Care Provider [phone] Farhat Cabezas MD Unavailable [phone] Farhat Cabezas MD Unavailable Source Comments In the event this information is protected by the Federal Confidentiality of Alcohol and Drug AbusePatient Records regulations: The Federal rules restrict any use of the information to criminally investigate or prosecute any alcohol or drug abuse patient.[facility] Encounter Details Date Type Department Care Team (Late st Contact Info) Description 08/01/2021 Patient [facility]sg [facility] [address] [facility] [place] [id number] Provider, Ccf Appointment Request Social History Tobacco [...] N ot on file 07/19/2021 Data from: https://www.neighborhoodatlas.[facility]/. Last address used for calculation [address] [facility] 07/19/2021 Comments No Sex and Gender Information [...] Description 08/30/2024 9:30 AM EDT [facility] Endocrinology [address] [place] [address] Greg Nina, MARITZA.CLINICAL NUTRITION MANAGER [address] [place] [address] diabetes follow up with me in 3 months virtually 09/04/2024 11:30 AM EDT [facility] Gastroenterology [address] [address] Mika Rodgers MD 9500 [place], [place] [address] Esophageal stricture [K22.2]Diverticuliti s of colon [K57.32] 11/20/2024 1:00 PM EDT [facility] Endocrinology [address] [place] [address] Valdez Suarez MD [address] [place] [address] [address] [place], [place] 1821635 follow up in 6 months documented as of this encounter Visit Diagnoses Not on filedocumented in this encounter Care Teams Trolley Operator Relationship Specialty Start Date End Date Farhat Cabezas MD PCP - General Family Medicine 01/13/11 Farhat Cabezas MD Referring Family Medicine 01/08/22 Farhat Cabezas MD [address] [place] [address] Referring Family Medicine 07/26/24 documented as of this encounter
--- OUTSIDE RECORDS SUMMARY | 2024-08-27 07:49 | XMS_ITS | Encounter Summary ---
Demographics Address [address] [place] [address] Home Phone Mobile Phone Email Address Preferred Language ENG Marital Status Single Jewish Affiliation Unknown Race White Ethnic Group Not or Lati no Author Organization [facility] Address [address] [place] [address] Care Team Providers Care Command Post Craftsman Name Role Phone Farhat Cabezas MD Primary Care Provider [phone] Farhat Cabezas MD Unavailable [phone] Farhat Cabezas MD Unavailable [phone] Source Comments In the event this [...] Description 03/07/2024 [place] [address] Provider, Ccf MRI Screening Questionnaire Completion Required [...] lower risk 7 03/07/2024 Data from: https://www.neighborhoodatlas.[facility]/ . Last address used for calculation [address] 03/07/2024 Comments No Sex and [...] Contact Info) Description 08/30/2024 9:30 AM EDT [facility] Endocrinology [address] [place] [address] Greg Nina APRN.COMMUNICATIONS DEPARTMENT CHAIR [address] [place] [address] diabetes follow up with me in 3 months virtually 09/04/2024 11:30 AM EDT [facility] Gastroenterology [address] [address] Mika Rodgers MD [address] [place] [address] Esophageal stricture [K22.2]Diverticuliti s of colon [K57.32] 11/20/2024 1:00 PM EDT [facility] Endocrinology [address] [place] [phone] Valdez Suarez MD [address] [facility] [address] [place], [place] [address] follow up in 6 months documented as of this encounter Visit Diagnoses Not on filedocumented in this encounter Care Teams Command Post Craftsman Relationship Specialty Start Date End Date Farhat Cabezas MD PCP - General Family Medicine 01/13/11 Farhat Cabezas MD Referring Family Medicine 01/08/22 Farhat Cabezas MD [address] [place] [address] Referring Family Medicine 07/26/24 documented as of this encounter
--- OUTSIDE RECORDS SUMMARY | 2024-08-27 07:49 | XMS_ITS | Encounter Summary ---
Demographics Address [address] [place] [address] Home Phone Mobile Phone Email Address Preferred Language ENG Marital Status Single Mormon Affiliation Unknown Race White Ethnic Group Not or Lati no Author Organization [facility] Address [address] [place] [address] Care Team Providers Care X Ray Tech Name Role Phone Farhat Cabezas MD Primary Care Provider [phone] Farhat Cabezas MD Unavailable [phone] Frahat Cabezas MD Unavailable [phone] Source Comments In the event this information is protected by the Federal Confidentiality of Alcohol and Drug AbusePatient Records regulations: The Federal rules restrict any use of the information to criminally investigate or prosecute any alcohol or drug abuse patient.[facility] Encounter Details Date Type Department Care Team (Late st Contact Info) Description 06/09/2021 Get Medical Advice Endocrinology [address] [facility] [place], [place] [phone] Valdez Suarez MD [address] [place], [place] [address] [facility] [place] [address] Thyroid antboties Social History Tobacco Use [...] N ot on file 01/16/2020 Data from: https://www.neighborhoodatlas.medicine.[facility]/. Last address used for calculation Not on [...] 9:30 AM EDT [facility] Endocrinology [address] [place] [phone] Greg Nina APRN.VOLUNTEER SERVICES MANAGER [address] [place], [place] [phone] diabetes follow up with me in 3 months virtually 09/04/2024 11:30 AM EDT [facility] Gastroenterology [address] [address] Mika Rodgers MD [address]00 [place] [address] Esophageal stricture [K22.2]Diverticuliti s of colon [K57.32] 11/20/2024 1:00 PM EDT [facility] Endocrinology [address] [place] [address] Valdez Suarez MD [address] [place] [address] [place], [place] [phone] follow up in 6 months documented as of this encounter Visit Diagnoses Not on filedocumented in this encounter Care Teams X Ray Tech Relationship Specialty Start Date End Date Farhat Cabezas MD PCP - General Family Medicine 01/13/11 Farhat Cabezas MD Referring Family Medicine 01/08/22 Farhat Cabezas MD [address] [place] [address] Referring Family Medicine 07/26/24 documented as of this encounter
--- OUTSIDE RECORDS SUMMARY | 2024-08-27 07:49 | XMS_ITS | Encounter Summary ---
Demographics Address [address] [facility] [place] [address] Home Phone Mobile Phone Email Address Preferred Language ENG Marital Status Single Confucianism Affiliation Unknown Race White Ethnic Group Not or Lati no Author Organization [facility] Address [address] [place] [address] Care Team Providers Care Radio Installer Name Role Phone Farhat Cabezas MD Primary Care Provider [phone] Farhat Cabezas MD Unavailable [phone] Farhat Cabezas MD Unavailable Source Comments [...] Info) Description 08/01/2021 Patient Msg Rheumatology [address] [address] Lorenzo Perry DO [address] [facility] [address] [place] [address] Request an Appointment Social History Tobacco Use [...] N ot on file 07/19/2021 Data from: https://www.neighborhoodatlas.medicine.[facility]/. Last address used for calculation 102 1/2 [...] Assessment Author No 12/14/2016 12:43 PM Mona uDboseRn) (Hist), RN documented as of this encounter [...] [facility] Endocrinology [address] [place] [phone] Greg Nina APRN.GEOLOGY TEACHER [address] [place] [address] diabetes follow up with me in 3 months virtually 09/04/2024 11:30 AM EDT [facility] Gastroenterology [address] [address] Mika Rodgers MD 9500 [place] [address] Esophageal stricture [K22.2]Diverticuliti s of colon [K57.32] 11/20/2024 1:00 PM EDT [facility] Endocrinology [address] [place] [address] Valdez Suarez MD [address] [place] [address] [place], [place] [phone] follow up in 6 months documented as of this encounter Visit Diagnoses Not on filedocumented in this encounter Care Teams Radio Installer Relationship Specialty Start Date End Date Farhat Cabezas MD PCP - General Family Medicine 01/13/11 Farhat Cabezas MD Referring Family Medicine 01/08/22 Farhat Cabezas MD [address] [place] [address] Referring Family Medicine 07/26/24 documented as of this encounter
--- OUTSIDE RECORDS SUMMARY | 2024-08-27 07:49 | XMS_ITS | Encounter Summary ---
Demographics Address [address] [facility] [place] [address] Home Phone Mobile Phone Email Address faisal Preferred Language ENG Marital Status Single Sikh Affiliation Unknown Race White Ethnic Group Not or Lati no Author Organization [facility] Address [address] [place] [address] Care Team Providers Care Clinical Practice Consultant Name Role Phone Farhat Cabezas MD Primary Care Provider [phone] Farhat Cabezas MD Unavailable [phone] Farhat Cabezas MD Unavailable [phone] Source Comments In the event this information is protected by the Federal Confidentiality of Alcohol and Drug AbusePatient Records regulations: The Federal rules restrict any use of the information to criminally investigate or prosecute any alcohol or drug abuse patient.[facility] Encounter Details Date Type Department Care Team (Late st Contact Info) Description 08/04/2021 Patient Msg Neurology [address] [place] [address] Sara Nguyen, MARITZA.BIRD TENDER [address] [facility] [address] [place] [address] Sonata Refill Social History Tobacco Use Types [...] on file 07/19/2021 Data from: https://www.neighborhoodatlas.medicine.[facility]/. Last address used for calculation [...] [facility] Endocrinology [address] [place] [phone] Greg Nina APRN.BIRD TENDER [address] [place] [address] diabetes follow up with me in 3 months virtually 09/04/2024 11:30 AM EDT [facility] Gastroenterology [address] [address] Mika Rodgers MD [address] [place], [place] [address] Esophageal stricture [K22.2]Diverticuliti s of colon [K57.32] 11/20/2024 1:00 PM EDT [facility] Endocrinology [address] [place] [address] Valdez Suarez MD [address] [place] [address] [address] [place], [place] [address] follow up in 6 months documented as of this encounter Visit Diagnoses Not on filedocumented in this encounter Care Teams Clinical Practice Consultant Relationship Specialty Start Date End Date Farhat Cabezas MD PCP - General Family Medicine 01/13/11 Farhat Cabezas MD Referring Family Medicine 01/08/22 Farhat Cabezas MD [address] [place] [address] Referring Family Medicine 07/26/24 documented as of this encounter
--- OUTSIDE RECORDS SUMMARY | 2024-08-27 07:49 | XMS_ITS | Encounter Summary ---
Demographics Address [address] [place] [address] Home Phone Mobile Phone Email Address Preferred Language ENG Marital Status Single Restoration Affiliation Unknown Race White Ethnic Group Not or Lati no Author Organization [facility] Address [address] [place] [address] Care Team Providers Care Steel Analyst Name Role Phone Farhat Cabezas MD Primary Care Provider [phone] Farhat Cabezas MD Unavailable [phone] Farhat Cabezas MD Unavailable [phone] Source Comments In the event this information is protected by the Federal Confidentiality of Alcohol and Drug AbusePatient Records regulations: The Federal rules restrict any use of the information to criminally investigate or prosecute any alcohol or drug abuse patient.[facility] Encounter Details Date Type Department Care Team (Late st Contact Info) Description 03/08/2024 Patient Msg Radiology [address] [place] [address] Provider, Ccf MRI Questionnaire Social [...] is lower risk 7 03/07/2024 Data from: https://www.neighborhoodatlas.[facility]/ . Last address used [...] Info) Description 08/30/2024 9:30 AM EDT [facility] Endocrinology [address] [place] [phone] Greg Nina APRN.CHIEF HOSPITAL ADMINISTRATOR [address] [place], [place] [phone] diabetes follow up with me in 3 months virtually 09/04/2024 11:30 AM EDT [facility] Gastroenterology [address] [address] Mika Rodgers MD [address] [place] [address] Esophageal stricture [K22.2]Diverticuliti s of colon [K57.32] 11/20/2024 1:00 PM EDT [facility] Endocrinology [address] [place] [address] Valdez Suarez MD [address] [facility] [address] [place], [place] [address] follow up in 6 months documented as of this encounter Visit Diagnoses Not on filedocumented in this encounter Care Teams Steel Analyst Relationship Specialty Start Date End Date Farhat Cabezas MD PCP - General Family Medicine 01/13/11 Farhat Cabezas MD Referring Family Medicine 01/08/22 Farhat Cabezas MD 1265 [place] [address] Referring Family Medicine 07/26/24 documented as of this encounter
--- OUTSIDE RECORDS SUMMARY | 2024-08-27 07:49 | XMS_ITS | Encounter Summary ---
Author Organization [facility] Address [facility] [place] [address] Care Team Providers Care Manager Sound Name Role Phone Farhat Cabezas MD Primary Care Provider [phone] Farhat Cabezas MD Unavailable [phone] Farhat Cabezas MD Unavailable [phone] Source Comments In the event this [...] Get Medical Advice General Surgery BMI PSYL [address] [place], [place] [phone] Graciela Hoyt, PhD [address] [place] [phone] RE: Non-Urgent Medical Question Social History Tobacco [...] Contact Info) Description 08/30/2024 9:30 AM EDT [facility] Endocrinology [address] [place] [address] Greg Nina, MARITZA.HOOP COILER [address] [place] [address] diabetes follow up with me in 3 months virtually 09/04/2024 11:30 AM T [facility] Gastroenterology [address] [address] Mika Rodgers MD 2646 [place] [address] Esophageal stricture [K22.2]Diverticuliti s of colon [K57.32] 11/20/2024 1:00 PM EDT [facility] Endocrinology [address] [place] [address] Valdez Suarez MD [address] [place] [address] [place], [place] 8125735 follow up in 6 months documented as of this encounter Visit Diagnoses Not on filedocumented in this encounter Care Teams Manager Sound Relationship Specialty Start Date End Date Farhat Cabezas MD PCP - General Family Medicine 01/13/11 Farhat Cabezas MD Referring Family Medicine 01/08/22 Farhat Cabezas MD [address] [place] [address] Referring Family Medicine 07/26/24 documented as of this encounter
--- OUTSIDE RECORDS SUMMARY | 2024-08-27 07:49 | XMS_ITS | Encounter Summary ---
Demographics Address [address] [facility] [place] [address] Home Phone Mobile Phone Email Address Preferred Language ENG Marital Status Single Adventist Affiliation Unknown Race White Ethnic Group Not or Lati no Author Organization [facility] Address [address] [place] [address] Care Team Providers Care Wood Strip Block Floor Installer Name Role Phone Farhat Cabezas MD Primary Care Provider [phone] Farhat Cabezas MD Unavailable [phone] Farhat Cabezas MD Unavailable [phone] Source Comments In the event this [...] for Integrative Med [address] [facility] [place] [id number] Provider, Ccf Request an Appointment Social History [...] on file 01/16/2020 Data from: https://www.neighborhoodatlas.[facility]/. Last address used for calculation Not on [...] [facility] Endocrinology [address] [place] [address] Greg Nina, BINDING MACHINE OPERATOR.DISPATCHER MAINTENANCE [address] [place] [address] diabetes follow up with me in 3 months virtually 09/04/2024 11:30 AM EDT [facility] Gastroenterology [address] [address] Mika Rodgers MD 0884 [place], [place] [address] Esophageal stricture [K22.2]Diverticuliti s of colon [K57.32] 11/20/2024 1:00 PM EDT [facility] Endocrinology [address] [place] [address] Valdez Suarez MD [address] [place] [address] [address] [place], [place] [phone] follow up in 6 months documented as of this encounter Visit Diagnoses Not on filedocumented in this encounter Care Teams Wood Strip Block Floor Installer Relationship Specialty Start Date End Date Farhat Cabezas MD PCP - General Family Medicine 01/13/11 Farhat Cabezas MD Referring Family Medicine 01/08/22 Farhat Cabezas MD [address] [place] [address] Referring Family Medicine 07/26/24 documented as of this encounter
--- OUTSIDE RECORDS SUMMARY | 2024-08-29 07:59 | XMS_ITS ---
Author Organization [facility] Address [address] [place] [address] Care Team Providers Care Cognos Bi Developer Name Role Phone DAVEY PINEDA MD Primary Care Provider Davey Pineda Unavailable [phone] REASON FOR VISIT increase semaglutide Medications Medication SIG (Take, Route, Frequency, Duration) Notes Start Date End Date Status Semaglutide 2.268 mg/0.63 mL 2.268 mg/0.63 mL 0.63 mL Subcutaneous Once weekly for 30 days Prefer 3 drug combined approach by injection for weight loss. 08/29/2024 Active Encounters Encounter Location Date Provider Diagnosis [facility] [address] [place] [address] 08/29/2024 Davey Pineda Weakness R53.1 Assessments Encounter Date Diagnosis (ICD Code) Assessment Notes Treatment Notes Treatment Clinical Notes Section Notes 08/29/2024 Weakness (ICD-10 - R53.1) Plan Of Treatment Medication Medication Name Sig Start Date Stop Date Notes Semaglutide 2.268 mg/0.63 mL 2.268 mg/0.63 mL 0.63 mL Subcutaneous Once weekly for 30 days 08/29/2024 Prefer 3 drug combined approach by injection for weight loss. Semaglutide 0.3 mg/0.25mL 0.3 mg/0.25 mL 0.6 mg Subcutaneous Once weekly 05/23/2024 Progress Notes * Esme REYES SDOB: [birth year] (49 yo F)Acc No.[id number]:08/29/2024 Patient: Esme JOHNSON :1975 A ge:49 Y S ex:Female Address:[facility] [address], [place], [address] * Refills Stop Semaglutide 0.3 mg/0.25mL Solution Auto-injector, 0.3 mg/0.25 mL, Subcutaneous, 0.6 mg, Once weekly Start Semaglutide 2.268 mg/0.63 mL Soultion Auto-injector, 2.268 mg/0.63 mL, Subcutaneous, 1, 0.63 mL, Once weekly, 30 days, Refills=5 * true * Date: Generated for Any soares/Karen/Banitting on: 0 09/13/2024 10:44 AM EDT
--- OUTSIDE RECORDS SUMMARY | 2024-08-30 09:30 | XMS_ITS | Encounter Summary ---
Demographics Address [address] [place] [address] Home Phone Mobile Phone Email Address faisal .[employer] Preferred Language ENG Marital Status Single Alevism Affiliation Unknown Race White Ethnic Group Not or Lati no Author Organization [facility] Address [address] [place] [id number] Care Team Providers Care Category Analyst Name Role Phone Farhat Cabezas MD Primary Care Provider [phone] Farhat Cabezas MD Unavailable [phone] Farhat Cabezas MD Unavailable [phone] Source Comments In the event this information is protected by the Federal Confidentiality of Alcohol and Drug AbusePatient Records regulations: The Federal rules restrict any use of the information to criminally investigate or prosecute any alcohol or drug abuse patient.[facility] Reason for Referral * Consult, Test, Treat (Routine) - Authorized Specialty Diagnoses / Procedures Referred By Contac t Referred To Contact Endocrinology Diagnoses Type 2 diabetes mellitus with hyperglycemia, with long-term current use of insulin (HCC) Obesity, Class III, BMI 40-49.9 (morbid obesity) (HCC) Procedures ENDOCRINOLOGY DIETITIAN VISIT (MNT) MEDICAL NUTRITION ASSMT&IVNTJ INDIV EACH 15 ID MEDICAL NUTRITION ASSMT&IVNTJ INDIV EACH 15 ID MEDICAL NUTRITION ASSMT&IVNTJ INDIV EACH 15 ID MEDICAL NUTRITION ASSMT&IVNTJ INDIV EACH 15 ID Greg Nina APRN.CEO AND PRESIDENT [address] [place] [address] Phone: tel: fax: Referral ID Status Reason Start Date Expiration Date Visits Requested Visits Authorized [id number] Authorized PCP Requested Referral 08/30/2024 08/30/2025 1 1 Reason for Visit * Reason Comments Diabetes Encounter Details Date Type Department Care Team (Latest Contact Info) Description 08/30/2024 9:30 AM EDT [facility] Endocrinology [address] [place] [address] Greg Nina APRN.CEO AND PRESIDENT [address] [place] [address] Type 2 diabetes mellitus with hyperglycemia, with long-term current use of insulin (HCC) (Primary Dx); Type 2 diabetes mellitus with hypoglycemia without coma, without long-term current use of insulin (HCC); Obesity, Class III, BMI 40-49.9 (morbid obesity) (HCC); Depressive disorder; Personal history of gastric bypass Social History Tobacco Use Types Packs/Day Years Used Date Smoking Tobacco: Never Smokeless Tobacco: Never Alcohol Use Standard Drinks/Week Comments Yes 0 (1 standard drink = 0.6 oz pur e alcohol) Social PHQ-2 Answer Date Recorded PHQ-2 score 2 01/08/2022 Area Deprivation Index Answer Date Rod rded National Score (1-100), lower number is lower ri sk 39 08/30/2024 State Score (1-10), lower number is lower risk 2 08/30/2024 Data from: https://www.neighborhoodatlas.medicine.[facility].edu/. Last address used for calculation [address] 08/30/2024 Comments No Sex and Gender Information Value Date Recorded Sex Assigned at Not on file Legal Sex Female 9:47 AM EST Gender Identity Not on file Sexual Orientation Not on file documented as of this encounter Last Filed Vital Signs Vital Sign Reading Time Taken Comments Blood Pressure - - Pulse - - Temperature - - Respiratory Rate - - Oxygen Saturation - - Inhaled Oxygen Concentration - - Weight 122 kg (269 lb) 08/30/2024 9:36 AM EDT Height - - Body Mass Index 49.2 09/27/2023 11:28 AM EDT documented in this encounter Functional Status * Are you deaf or do you have serious difficulty hearing? Answer Date of Assessment Author No 12/14/2016 12:43 PM Mona Dubose (Rn) ([facility]), RN * Are you blind or do [...] No 12/14/2016 12:43 PM Mona Dubose (Rn) ([facility]), RN documented as of this encounter Mental Status * Because of a physical, mental, or emotional condition, do you have serious difficulty concentrating, remembering, or making decisions? Answer Entry Date Author No 12/14/2016 12:43 PM Mona Dubose (Rn) ([facility]), RN documented in this encounter Patient Instructions * Patient Instructions* Greg Nina APRN.CEO AND PRESIDENT - 08/30/2024 9:55 AM EDT - Continue your Trulicity (dulaglutide) 4.5 mg injection once weekly as prescribed. - Start acarbose 50 mg tablets: take half a tablet (25 mg) with the first bite of each meal for 2-3weeks. If your blood sugar still spikes, increase to one full tablet (50 mg) with the first bite ofeach meal. - Get laboratory tests today: hemoglobin A1c and a metabolic panel (to check kidney function/creatinine). No fasting is needed. - Restart your Dexcom continuous glucose monitor and link it to our [employer] system so we can review your readings together. - Schedule and complete a virtual visit with our weight management tool radial drill press set up operator to review your calorieintake and support healthy weight loss. - Continue aquatic therapy and gradually build endurance with walking and strength exercises as tolerated to help increase muscle mass and support fat loss. - After we review your lab results, we may submit a request for Ozempic; if it???s approved, you will stop Trulicity. - Follow up in about 3 months so we can review your progress, lab results, and adjust your treatment plan as needed. documented in this encounter Progress Notes * Gilson Suarez - 08/30/2024 11:04 AM EDT Called patient at [phone] Verified patient with name and Scheduled patient a virtual follow up appointment on 01/03/2025 per patient and with tool radial drill press set up operator on 09/13/2024 ( Virtual appointment ) Gilson HERNANDEZ * Greg Nina APRN.FRANK - 08/30/2024 9:30 AM EDT Endocrinology Follow Up Virtual Visit This is a virtual visit using [employer] Zoom Video Visit. It required patient- provider interaction for the medical decision making as documented below. I have communicated my name and active licensure. The patient's identity and physical location wereverified at the time of this visit. Either the patient or their legal marketing representative has been informed of the risks and benefits of -- and alternatives to -- treatment through a remote evaluation andconsents to proceed with the evaluation remotely. Subjective History of Present Illness Esme Reyes presents today for follow up of Type 2 Diabetes Mellitus. : 1975 Diagnosed with Type 2 Diabetes Mellitus ~2014. 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 Hypoglycemia awareness: Good Complications: none Prior DM Medications: Ozempic - cost / [place] Mounjaro - not [place] Acarbose Recent A1c Results: Hemoglobin A1C (%) Date Value 05/29/2024 6.5 03/29/2023 5.9 06/16/2022 6.2 03/17/2021 6.0 12/27/2020 6.2 08/13/2020 6.1 Hemoglobin A1C (POCT) (%) Date Value 11/30/2022 6.6 Diabetes Health Maintenance: Health Maintenance Topics Topic Date Due Dilated Retinal Exam 06/12/2023 Diabetic Foot Exam 06/24/2023 Current DM Regimen: Trulicity 4.5 mg weekly Interval HPI: Diabetes Mellitus: - Last seen in May. - Currently on Trulicity 4.5 mg weekly; previously tried Mounjaro and Ozempic, but both were not covered by insurance. - Reports feeling like Trulicity is ineffective. - Blood glucose readings: - Mornin-170 mg/dL. - Throughout the day: 140-160 mg/dL. - Postprandial (within an hour): 300-400 mg/dL, with rapid fluctuations. - Occasional hypoglycemic episodes (<70 mg/dL) following hyperglycemia. - Diet: - Primarily chicken, ribs, baked potatoes, and corn on the cob. - Increased intake of sugary beverages. - Over last 1.5 years, weight gain of 60 lbs, now weighing 269 lbs. - Recent insurance change to Medicare with Medicaid secondary, approximately 3 weeks ago. - Recent A1c reportedly 6.9% from a local hospital. - Recent urinalysis showed proteinuria and bacteria; currently on antibiotics. - Recent high creatinine levels; received IV hydration. - Resumed physical therapy, including aquatic therapy. - Recent foot injury and current left leg injury. - History of depression, currently improving. Review of Systems: Per HPI and/or patient questionnaire. Answers submitted by the patient for this visit: Core Review of Systems (Submitted on 08/30/2024) Fever : No Night sweats: Yes Recent unintentional weight change: Yes Nasal Congestion: No Hearing Loss: No Vision Disturbance: No A cough: No Difficulty Breathing?: No Chest pain: No Irregular heartbeat: Yes Leg Swelling: Yes Nausea: Yes Diarrhea: No Black tarry stools: No Difficulty Urinating?: No Awaken at Night More Than Once to Urinate?: Yes Joint pain or stiffness: Yes Muscle aches: Yes Leg or Foot Discomfort at Night?: Yes A rash: No Dizziness: Yes Headaches: No Memory Loss: Yes Seizures: No Medications, Past History, Allergies Current Medications 08/30/2024 DIABETES THERAPIES Medication Dosage Pharm Subclass semaglutide (OZEMPIC) 0.25 mg or 0.5 mg (2 mg/3 mL) pen For the first 4 weeks, inject 0.25 mg once weekly. After 4 weeks, increase to 0.5 mg weekly and stay at that dose. Antihyperglycemic - Glucagon-Like Peptide-1 (GLP-1) Receptor Agonists TRULICITY 4.5 mg/0.5 mL pen injector Inject 4.5 mg subcutaneously one time a week. Antihyperglycemic - Glucagon-Like Peptide-1 (GLP-1) Receptor Agonists CARDIOVASCULAR Medication Dosage Pharm Subclass metoprolol tartrate, short acting, (LOPRESSOR) 50 mg tablet Take one 50 mg tablet the evening priorto the CTA examination, take another 50 mg tablet the morning of the CTA examination. Beta BlockersCardiac Selective nitroglycerin sublingual (NITROQUICK) 0.3 mg SL tablet Dissolve 1 tablet under the tongue one time only for 1 dose. To be administered in Radiology for CTA exam Antianginal - Coronary Vasodilators (Nitrates) propranolol (INDERAL) 10 mg tablet 1 tablet Orally QID PRN Beta Blockers Non- Cardiac Selective OTHER Medication Dosage Pharm Subclass albuterol HFA (VENTOLIN HFA) 90 mcg/actuation inhaler 1 puff as needed Inhalation every 4 hrs for 30 days Asthma/COPD Therapy - Beta 2-Adrenergic Agents, Inhaled, Short Acting ARIPiprazole (ABILIFY) 5 mg tablet Take 1 tablet by mouth once daily. Bipolar Therapy Agents - Atypical Antipsychotics BIPAP Lifetime supplies for BiPAP 12/8 cm H20 including mask, heated tubing, humidity, filters. Dx:G47.33 Medical Supply, [employer] Superset blood sugar diagnostic (TRUE METRIX GLUCOSE TEST STRIP) test strip Use with blood glucose test two times a day. Insulin Dep? No Medical Supplies and DME - Blood Glucose Tests Blood-Glucose Meter (TRUE METRIX GLUCOSE METER) dispense 1 meter Medical Supplies and DME - GlucoseMonitoring Test Supplies Blood-Glucose Sensor ([employer] G7 SENSOR) vinny Use to check glucose 4 times or more daily. Change sensor every 10 days. Medical Supplies and DME - Glucose Monitoring Test Supplies CPAP/BIPAP/OTHER Type .CPAPSettings into a note to see current settings/supplies/DME information. Medical Supply, [employer] Superset CPAP/BIPAP/OTHER Type .CPAPSettings into a note to see current settings/supplies/DME information. Medical Supply, [employer] Superset cyanocobalamin 1,000 mcg/mL INJECT 1mL INTRAMUSCULARLY once a month DIRECTED Vitamins - B-12, Cyanocobalamin and derivatives diclofenac [...] Antidepressant - Selective Serotonin Reuptake Inhibitors (SSRIs) folic acid 1 mg tablet Take 1 tablet by mouth every afternoon. Vitamins - Folic Acid and Derivatives gabapentin (NEURONTIN) 100 mg capsule TAKE 1 CAPSULE BY MOUTH THREE TIMES DAILY FOR 15 DAYS Anticonvulsant - OLIVIER Analogs glucagon (BAQSIMI) 3 mg/actuation nasal spray Use 1 Sarah Ann in the nose as needed for low blood sugar. May repeat after 15 minutes using a new device if there is no response. Agents to treat Hypoglycemia (Hyperglycemics) hydrOXYzine pamoate (VISTARIL) 25 mg capsule Take 25 mg by mouth two times a day as needed for anxiety. 50 mg per patient Antianxiety Agent - Antihistamine Type lancets (UNILET LANCETS) 30 gauge Use with blood glucose test two times a day. Insulin Dep? No Medical Supplies and DME - Glucose Monitoring Test Supplies levothyroxine (SYNTHROID) 75 mcg tablet TAKE 1 TABLET BY MOUTH EVERY DAY Thyroid Hormones - Synthetic T4 (Thyroxine) LORazepam (ATIVAN) 1 mg tablet 1 tablet Orally TID PRN Antianxiety Agent - Benzodiazepines magnesium glycinate 100 mg magnesium capsule Take 2 capsules by mouth daily at bedtime. Minerals and Electrolytes - Magnesium meclizine (ANTIVERT) 25 mg tab Take 0.5-1 tablets by mouth three times daily as needed (for dizziness.). Antiemetic - Antihistamines Mirtazapine (REMERON) 7.5 mg tablet Take 7.5 mg by mouth daily at bedtime. 16.5mg per patient Antidepressant - Alpha-2 Receptor Antagonists (NaSSA) OLANZapine (ZYPREXA) 5 mg tablet TAKE 1 TABLET BY MOUTH EVERY 6 HOURS NEEDED for AGITATION FOR 15 DAYS Antipsychotic -Atypical Dopamine-Serotonin Antag-Thienobenzodiazepines pantoprazole DR (PROTONIX) 40 mg tablet Take 1 tablet by mouth as needed. Gastric Acid Secretion Anime Designer - Proton Pump Inhibitors (PPIs) promethazine (PHENERGAN) 25 mg tablet Take 25 mg by mouth four times daily as needed. Antihistamine- 1st Generation - Phenothiazines SUMAtriptan (IMITREX) 100 mg tablet 1 tablet at least 2 hours between doses as needed Orally Twice a day Migraine Therapy - Selective Serotonin Agonists 5-HT(1) Syringe with Needle, Safety (EASY TOUCH SHEATHLOCK SYRG-NDL) 3 mL 25 gauge x 1 syrg Weekly methotrexate injections, monthly vit b12 injections as instructed Medical Supplies and DME - [place] and Syringes thiamine (VITAMIN B1) 100 mg tablet Take 1 tablet by mouth every 12 hours. Vitamins - B-1, Thiamineand Derivatives tretinoin (RETIN-A) 0.025 % topical cream Apply to affected area daily at bedtime. 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 Rheumatoid arthritis (HCC) was treated with mtx plaquenil in past Thyroiditis, unspecified Thyroiditis Viral pneumonia, unspecified Pneumonia Vomiting of fecal matter ALLERGIES Allergen Reactions Contrast Dye [Iodin* Other: See Comments Causes ENEIDA per pt Mobic [Meloxicam] Intolerance GI bleed with transfusion Motrin [Ibuprofen] Other: See Comments GI Bleed Nsaids (Non-Steroid* Unknown Prednisone Contraindication-Medical Surgical GI bleed Scopolamine Mental Status Change Paranoia, confusion, hallucination Objective Physical Examination VS: Wt 122 kg (269 lb) LMP 09/13/2022 (Approximate) BMI 49.20 kg/m?? General appearance: well appearing, NAD Neuro: alert, speech clear Previous Laboratory Results Potassium Date Value Ref Range Status 05/29/2024 4.1 3.7 - 5.1 mmol/L Final 10/04/2023 4.8 3.7 - 5.1 mmol/L Final Glucose (mg/dL) Date Value 05/29/2024 280 10/04/2023 117 03/17/2021 134 12/27/2020 68 eGFR- (no units) Date Value 03/17/2021 >60 12/27/2020 >60 10/21/2020 >60 eGFR-All Other Races (.) Date Value 03/17/2021 >60 12/27/2020 57 10/21/2020 >60 eGFR (POCT) (mL/min/1.73 m2) Date Value 11/26/2023 55 Estimated Glomerular Filtration Rate (mL/min/1.73m??) Date Value 05/29/2024 76 10/04/2023 82 03/29/2023 68 Creatinine Date Value Ref Range Status 05/29/2024 0.92 0.58 - 0.96 mg/dL Final 10/04/2023 0.86 0.58 - 0.96 mg/dL Final Creatinine (POCT) Date Value Ref Range Status 11/26/2023 1.20 0.7 - 1.4 mg/dL Final AST Date Value Ref Range Status 05/29/2024 38 (H) 13 - 35 U/L Final 10/04/2023 30 13 - 35 U/L Final ALT Date Value Ref Range Status 05/29/2024 43 (H) 7 - 38 U/L Final 10/04/2023 59 (H) 7 - 38 U/L Final Cholesterol, Total (mg/dL) Date Value 05/29/2024 132 02/11/2018 145 HDL Cholesterol (mg/dL) Date Value 05/29/2024 41 02/11/2018 56 LDL Cholesterol, Calculated (mg/dL) Date Value 05/29/2024 63 02/11/2018 75 Triglyceride (mg/dL) Date Value 05/29/2024 139 02/11/2018 70 LDL:HDL Ratio (no units) Date Value 05/29/2024 1.54 02/11/2018 1.34 Albumin/Creat Ratio (mg/g) Date Value 05/29/2024 10 12/22/2022 <16 Protein, Urine Date Value 10/21/2020 Negative 04/04/2018 TRACE mg/dL Creatinine, Ur Random (UCRR) (mg/dL) Date Value 05/29/2024 208.7 12/22/2022 74.2 12/09/2016 35.1 Impression / Recommendations Esme Reyes is here for follow up of Type 2 Diabetes Mellitus with no complications. 1. Type 2 diabetes mellitus with hyperglycemia, with long-term current use of insulin ([facility]) (E11.65) 2. Type 2 diabetes mellitus with hypoglycemia without coma, without long-term current use of insulin ([facility]) (E11.649) - Blood glucose levels fluctuating significantly, with readings as high as 400 mg/dL postprandiallyand occasional hypoglycemic episodes below 70 mg/dL. - Currently on Trulicity 4.5 mg weekly; patient reports minimal perceived efficacy. - Ordered A1c and metabolic panel to assess current glycemic control and renal function. - Initiated Acarbose 50 mg; instructed to start with half a tablet with the first bite of each mealfor 2-3 weeks, then increase to a full tablet if necessary to mitigate postprandial spikes. - Discussed potential switch to Ozempic pending insurance coverage; will reassess after lab results. - Patient to resume Dexcom monitoring for continuous glucose readings. - Follow-up in 3 months to evaluate treatment efficacy and adjust as needed. 3. Obesity, Class III, BMI 40-49.9 (morbid obesity) ([facility]) (E66.813) 4. Personal history of gastric bypass (Z98.84) - Significant weight gain reported, currently at 269 lbs, approximately 60 lbs increase. BMI 49.20 - Dietary habits reviewed; patient consuming mixed meals with high carbohydrate content and sugary beverages. - Referral to weight management tool radial drill press set up operator for evaluation of caloric intake and metabolic rate. - Patient engaging in physical therapy and aquatic therapy; encouraged to continue and gradually increase activity levels. - Follow-up in 3 months to monitor progress and adjust treatment plan as necessary. 5. Depressive disorder (F32.A) - Depression noted as a contributing factor to decreased physical activity and weight gain. - Encouraged continuation of mental health support and treatment. - Monitor for improvement in mood and activity levels in conjunction with weight management efforts. Recording using [employer] software for draft documentation of the visit was discussed with the patient/authorized marketing representative; all questions welcomed and answered. Patient/authorized marketing representative agreed to proceed Diabetes Regimen: Trulicity 4.5 mg weekly Acarbose 50 mg 1/2 tab 3x daily before meals (may increase to full tablet if post prandial rises continue) - Check glucose 4 times daily and as needed with CGM - Glucose targets: Fasting and before meals 80-130 mg/dL, 2 hours after meal <180 mg/dL, and bedtime <150 mg/dL. - Notify office for consistently elevated or low glucose readings <70 mg/dL. - Bring meter and/or glucose readings to each appointment Follow up 3 months Patient to continue to follow up with their PCP and with other specialists regarding their other medical problems. Any part of this document that has been added/copied & pasted from other documents has been reviewed for accuracy and updated as appropriate at the time of the patient encounter. Medical Decision Making: Problems: Moderate: 1+ chronic illnesses with change Data: Unique test(s) ordered: 2 Risk: Moderate: Drug management Medical Decision Making Level: 4 - Moderate Greg Nina APRN.CNP Department of Endocrinology [facility] documented in this encounter Plan of Treatment Upcoming Encounters Date Type Department Care Team (Late st Contact Info) Description 09/13/2024 2:00 PM EDT [facility] Diabetic Education [facility] [address] [place] [address] [place] [address] [place], [place] [id number] Type 2 diabetes mellitus with hyperglycemia, with long-term current use of insulin (HCC) [E11.65, Z79.4] 11/20/2024 1:00 PM EDT [facility] Endocrinology [address] [place] [id number] Valdez Suarez MD [address] [place] [address] [place] [address] follow up in 6 months 01/03/2025 10:00 AM [facility] Endocrinology [address] [place] [id number] Greg Nina APRN.CEO AND PRESIDENT [address] [place] [address] diabetes follow up in 3 months virtually. Scheduled Orders Name Type Priority Associated Diagnoses Orde r Schedule HEMOGLOBIN A1C Lab Routine Type 2 diabetes mellitus with hyperglycemia, with long-term current use of insulin (HCC) Expected: 08/30/2024, Expires: 11/29/2024 COMPREHENSIVE METABOLIC PANEL Lab Routine Type 2 diabetes mellitus with hyperglycemia, with long-term current use of insulin ([facility]) Expected: 08/30/2024, Expires: 11/29/2024 documented as of this encounter Visit Diagnoses Diagnosis Type 2 diabetes mellitus with hyperglycemia, with long-term current use of insulin (HCC)- Primary Type 2 diabetes mellitus with hypoglycemia without coma, without long-term current use of insulin (HCC) Obesity, Class III, BMI 40-49.9 (morbid obesity) (HCC) Morbid obesity Depressive disorder Depressive disorder, not elsewhere classified Personal history of gastric bypass Bariatric surgery status documented in this encounter Care Teams Category Analyst Relationship Specialty Start Date End Date Farhat Cabezas MD PCP - General Family Medicine 01/13/11 Farhat Cabezas MD Referring Family Medicine 01/08/22 Farhat Cabezas MD [address] [place] [address] Referring Family Medicine 07/26/24 documented as of this encounter
--- OUTSIDE RECORDS SUMMARY | 2024-09-01 04:02 | XMS_ITS ---
Demographics Address [address] [place] [address] Mobile Email Address Preferred Language en Marital Status unmarried Uatsdin Affiliation Unknown Race White Ethnic Group Not or Lati no Author Organization [facility] [place] Address [address] [place] [address] Care Team Providers Care Marking Devices Assembler Name Role Phone DAVEY CABEZAS MD Primary Care Provider Davey Cabezas Unavailable [phone] REASON FOR VISIT Chlordiazepoxide refill Medications Medication SIG (Take, Route, Frequency, Duration) Notes Start Date End Date Status chlordiazePOXIDE HCl 10 MG 1 capsule Orally tid PRN for 7 days needs to last a week 09/01/2024 Active Encounters Encounter Location Date Provider Diagnosis [id number] [place] [address] 09/01/2024 Davey Colemanrobert Leg pain M79.606 Assessments Encounter Date Diagnosis (ICD Code) Assessment Notes Treatment Notes Treatment Clinical Notes Section Notes 09/01/2024 Leg pain (ICD-10 - M79.606) Plan Of Treatment Medication Medication Name Sig Start Date Stop Date Notes chlordiazePOXIDE HCl 10 MG 1 capsule Ora lly tid PRN for 7 days 09/01/2024 Progress Notes * Esme REYES SDOB: [birth year] (49 yo F)Acc No.[id number]:09/01/2024 Patient: Mayur JOHNSONwlinda Garcia :1975 A ge:49 Y S ex:Female Address:[address] [place], [address] * Refills Refill chlordiazePOXIDE HCl Capsule, 10 MG, Orally, 18, 1 capsule, tid PRN, 7 days, Refills=0 * true * Date: Generated for Any soares/Karen/Banitting on: 0 09/13/2024 10:42 AM EDT
--- OUTSIDE RECORDS SUMMARY | 2024-09-12 05:48 | XMS_ITS ---
Author Organization [facility] [place] Address [address] [place] [address] Care Team Providers Care Bunch Breaker Machine Operator Name Role Phone DAVEY PINEDA MD Primary Care Provider Davey Pineda Unavailable [phone] REASON FOR VISIT rf phenergan and chlordiazepoxide Medications Medication SIG (Take, Route, Frequency, Duration) Notes Start Date End Date Status chlordiazePOXIDE HCl 10 MG 1 capsule Orally tid PRN for 7 days needs to last a week 09/12/2024 Active Encounters Encounter Location Date Provider Diagnosis [facility] [address] [place] [address] 09/12/2024 Davey Pineda Leg pain M79.606 and Frequency of micturition R35.0 Assessments Encounter Date Diagnosis (ICD Code) Assessment Notes Treatment Notes Treatment Clinical Notes Section Notes 09/12/2024 Leg pain (ICD-10 - M79.606) 09/12/2024 Frequency of micturition (ICD-10 - R35.0) Plan Of Treatment Medication Medication Name Sig Start Date Stop Date Notes chlordiazePOXIDE HCl 10 MG 1 capsule Ora lly tid PRN for 7 days 09/12/2024 Progress Notes * Esme REYES SDOB: [birth year] (49 yo F)Acc No.[id number]:09/12/2024 Patient: Bekah Esme DYE :1975 A ge:49 Y S ex:Female Address:[facility] [address], [place], [address] * Refills Refill chlordiazePOXIDE HCl Capsule, 10 MG, Orally, 18, 1 capsule, tid PRN, 7 days, Refills=0 * true * Date: Generated for Any soares/Karen/Banitting on: 0 09/13/2024 10:42 AM EDT
--- OUTSIDE RECORDS SUMMARY | 2024-09-13 10:41 | XMS_ITS | Encounter Summary ---
Author Organization [facility] Address [address] [place] [address] Care Team Providers Care Field Marketing Lead Name Role Phone Farhat Cabezas MD Primary Care Provider [phone] Farhat Cabezas MD Unavailable [phone] Farhat Cabezas MD Unavailable [phone] Source Comments In the event this information is protected by the Federal Confidentiality of Alcohol and Drug AbusePatient Records regulations: The Federal rules restrict any use of the information to criminally investigate or prosecute any alcohol or drug abuse patient.[facility] Encounter Details Date Type Department Care Team (Late st Contact Info) Description 02/24/2017 Patient Msg Medical Records [address] [place] [address] Provider, Ccf Follow Up from Psychology Group [...] Contact Info) Description 09/13/2024 2:00 PM EDT [facility] Diabetic Education [facility] [address] [place] [address] [place] [address] [place] [address] Type 2 diabetes mellitus with hyperglycemia, with long-term current use of insulin (HCC) [E11.65, Z79.4] 11/20/2024 1:00 PM EDT [facility] Endocrinology [address] [place] [address] Valdez Suarez MD [address] [place] [address] [place] [address] follow up in 6 months 01/03/2025 10:00 AM EST [facility] Endocrinology [address] [place] [address] Greg Nina, MALWARE ANALYST.ADVERTISING SALES ASSOCIATE [address] [place] [address] diabetes follow up in 3 months virtually. documented as of this encounter Visit Diagnoses Not on filedocumented in this encounter Care Teams Field Marketing Lead Relationship Specialty Start Date End Date Farhat Cabezas MD PCP - General Family Medicine 01/13/11 Farhat Cabezas MD Referring Family Medicine 01/08/22 Farhat Cabezas MD [address] [place] [address] Referring Family Medicine 07/26/24 documented as of this encounter
--- OUTSIDE RECORDS SUMMARY | 2024-09-13 10:41 | XMS_ITS | Encounter Summary ---
Author Organization [facility] Address [address] [place] [address] Care Team Providers Care Stores Despatch Hand Name Role Phone Farhat Cabezas MD Primary Care Provider [phone] Farhat Cabezas MD Unavailable [phone] Farhat Cabezas MD Unavailable [phone] Source Comments In the event this information is protected by the Federal Confidentiality of Alcohol and Drug AbusePatient Records regulations: The Federal rules restrict any use of the information to criminally investigate or prosecute any alcohol or drug abuse patient.[facility] Encounter Details Date Type Department Care Team (Late st Contact Info) Description 10/27/2016 Patient Msg General Surgery [address] [place] [address] Monica Adam RN Survey Social [...] Contact Info) Description 09/13/2024 2:00 PM EDT [facility] Diabetic Education [facility] [address] [place], [place] [phone] Ignacio Garcia, SABIHA [address] [place] [address] Type 2 diabetes mellitus with hyperglycemia, with long-term current use of insulin (HCC) [E11.65, Z79.4] 11/20/2024 1:00 PM EDT [facility] Endocrinology [address] [place] [address] Valdez Suarez MD [address] [place] [address] [address] [place], [place] 69[address] follow up in 6 months 01/03/2025 10:00 AM EST [facility] Endocrinology [address] [place] [address] Greg Nina, MARITZA.CHROME PLATER [address] [place] [address] diabetes follow up in 3 months virtually. documented as of this encounter Visit Diagnoses Not on filedocumented in this encounter Care Teams Stores Despatch Hand Relationship Specialty Start Date End Date Farhat Cabezas MD PCP - General Family Medicine 01/13/11 Farhat Cabezas MD Referring Family Medicine 01/08/22 Farhat Cabezas MD [address] [place] [address] Referring Family Medicine 07/26/24 documented as of this encounter
--- OUTSIDE RECORDS SUMMARY | 2024-09-13 10:41 | XMS_ITS | Encounter Summary ---
Demographics Address [address] [place] [address] Home Phone Mobile Phone Email Address Preferred Language ENG Marital Status Single Orthodox Affiliation Unknown Race White Ethnic Group Not or Lati no Author Organization [facility] Address [address] [place] [address] Care Team Providers Care Airplane Charter Clerk Name Role Phone Farhat Cabezas MD Primary Care Provider [phone] Farhat Cabezas MD Unavailable [phone] Farhat Cabezas MD Unavailable [phone] Source Comments In the event this information is protected by the Federal Confidentiality of Alcohol and Drug AbusePatient Records regulations: The Federal rules restrict any use of the information to criminally investigate or prosecute any alcohol or drug abuse patient.[facility] Reason for Visit * Reason Comments Radiology XR Encounter Details Date Type Department Care Team (Late st Contact Info) Description 12/27/2020 Radiology Radiology [address] [place], [place] [phone] Altagracia Marinelli RT(R) Radiology XR Social History [...] on file 01/16/2020 Data from: https://www.neighborhoodatlas.[facility]/. Last address used for calculation [...] Contact Info) Description 09/13/2024 2:00 PM EDT [facility] Diabetic Education [facility] [address] [place] [address] [place] [address] [place] [address] Type 2 diabetes mellitus with hyperglycemia, with long-term current use of insulin (HCC) [E11.65, Z79.4] 11/20/2024 1:00 PM EDT [facility] Endocrinology [address] [place] [address] Valdez Suarez MD [address] [place] [address] [address] [place], [place] [phone] follow up in 6 months 01/03/2025 10:00 AM EST [facility] Endocrinology [address] [place] [address] Greg Nina RESOURCE RECOVERY SPECIALIST.CONDENSER CLEANER [address] [place] [address] diabetes follow up in 3 months virtually. documented as of this encounter Visit Diagnoses Not on filedocumented in this encounter Care Teams Airplane Charter Clerk Relationship Specialty Start Date End Date Farhat Cabezas MD PCP - General Family Medicine 01/13/11 Farhat Cabezas MD Referring Family Medicine 01/08/22 Farhat Cabezas MD [address] [place] [address] Referring Family Medicine 07/26/24 documented as of this encounter
--- OUTSIDE RECORDS SUMMARY | 2024-09-13 10:41 | XMS_ITS | Encounter Summary ---
Demographics Address [address] [facility] [place] [address] Home Phone Mobile Phone Email Address Preferred Language ENG Marital Status Single Anglican Affiliation Unknown Race White Ethnic Group Not or Lati no Author Organization [facility] Address [address] [place] [address] Care Team Providers Care Handle Rounder Operator Name Role Phone Farhat Cabezas MD Primary Care Provider [phone] Farhat Cabezas MD Unavailable [phone] Farhat Cabezas MD Unavailable [phone] Source Comments In the event this [...] Integrative Med [address] [facility] [place] [phone] Provider, Ccf Referral- CONSULT FOR ACUPUNCTURE Social [...] N ot on file 01/16/2020 Data from: https://www.neighborhoodatlas.[place].[facility]/. Last address used for calculation [...] Assessment Author No 12/14/2016 12:43 PM Mona DuboesRn) (Hist), RN * Do you have serious [...] Contact Info) Description 09/13/2024 2:00 PM EDT [facility] [address] [place] [address] [place] [address] [place] [address] Type 2 diabetes mellitus with hyperglycemia, with long-term current use of insulin (HCC) [E11.65, Z79.4] 11/20/2024 1:00 PM EDT [facility] Endocrinology [address] [place] [address] Valdez Suarez MD [address] [place] [address] [place] [address] follow up in 6 months 01/03/2025 10:00 AM EST [facility] Endocrinology [address] [place] [address] Greg Nina APRN.[facility] [address] [place], [place] 8415[address] diabetes follow up in 3 months virtually. documented as of this encounter Visit Diagnoses Not on filedocumented in this encounter Care Teams Handle Rounder Operator Relationship Specialty Start Date End Date Farhat Cabezas MD PCP - General Family Medicine 01/13/11 Farhat Cabezas MD Referring Family Medicine 01/08/22 Farhat Cabezas MD [address] [place] [address] Referring Family Medicine 07/26/24 documented as of this encounter
--- OUTSIDE RECORDS SUMMARY | 2024-09-13 10:41 | XMS_ITS | Encounter Summary ---
Demographics Address [address] [place] [address] Home Phone Mobile Phone Email Address Preferred Language ENG Marital Status Single Jew Affiliation Unknown Race White Ethnic Group Not or Lati no Author Organization [facility] Address [address] [place] [address] Care Team Providers Care Breaker Unit Assembler Name Role Phone Farhat Cabezas MD Primary Care Provider [phone] Farhat Cabezas MD Unavailable [phone] Farhat Cabezas MD Unavailable [phone] Source Comments In the event this information is protected by the Federal Confidentiality of Alcohol and Drug AbusePatient Records regulations: The Federal rules restrict any use of the information to criminally investigate or prosecute any alcohol or drug abuse patient.[facility] Reason for Visit * Reason Comments Radiology XR Encounter Details Date Type Department Care Team (Late st Contact Info) Description 11/21/2020 Radiology General Radiology [address] [place] [address] Jonah Pavon, RT(R) Radiology XR Social History [...] N ot on file 01/16/2020 Data from: https://www.neighborhoodatlas.[facility]/. Last address used for calculation Not [...] Description 09/13/2024 2:00 PM EDT [facility] Diabetic Education [facility] [address] [place] [address] [place] [address] [place] [address] Type 2 diabetes mellitus with hyperglycemia, with long-term current use of insulin (HCC) [E11.65, Z79.4] 11/20/2024 1:00 PM EDT [facility] Endocrinology [address] [place] [address] Valdez Suarez MD [address] [place] [address] [address] [place], [place] [phone] follow up in 6 months 01/03/2025 10:00 AM EST [facility] Endocrinology [address] [place] [address] Greg Nina APRN.[employer] [address] [place], [place] [phone] diabetes follow up in 3 months virtually. documented as of this encounter Visit Diagnoses Not on filedocumented in this encounter Care Teams Breaker Unit Assembler Relationship Specialty Start Date End Date Farhat Cabezas MD PCP - General Family Medicine 01/13/11 Farhat Cabezas MD Referring Family Medicine 01/08/22 Farhat Cabezas MD [address] [place] [address] Referring Family Medicine 07/26/24 documented as of this encounter
--- OUTSIDE RECORDS SUMMARY | 2024-09-13 10:41 | XMS_ITS | Encounter Summary ---
Demographics Address [address] [facility] [place] [address] Home Phone Mobile Phone Email Address Preferred Language ENG Marital Status Single Yazdanism Affiliation Unknown Race White Ethnic Group Not or Lati no Author Organization [facility] Address [address] [place] [address] Care Team Providers Care Candy Spreader Helper Name Role Phone Farhat Cabezas MD Primary Care Provider [phone] Farhat Cabezas MD Unavailable [phone] Farhat Cabezas MD Unavailable [phone] Source Comments In the event this information is protected by the Federal Confidentiality of Alcohol and Drug AbusePatient Records regulations: The Federal rules restrict any use of the information to criminally investigate or prosecute any alcohol or drug abuse patient.[facility] Encounter Details Date Type Department Care Team (Late st Contact Info) Description 12/11/2020 Patient Msg Pain Management [address] [place], [place] [phone] Provider, Ccf 3 month virtual appointment with [...] file 01/16/2020 Data from: https://www.neighborhoodatlas.medicine.[facility]/. Last address used for calculation [...] Description 09/13/2024 2:00 PM EDT [facility] Diabetic Education [facility] [address] [place] [address] [place] [address] [place] [address] Type 2 diabetes mellitus with hyperglycemia, with long-term current use of insulin (HCC) [E11.65, Z79.4] 11/20/2024 1:00 PM EDT [facility] Endocrinology [address] [place] [address] Valdez Suarez MD [address] [place] [address] [address] [place], [place] [phone] follow up in 6 months 01/03/2025 10:00 AM EST [facility] Endocrinology [address] [place] [address] Greg Nina APRN.[facility] [address] [place], [place] [phone] diabetes follow up in 3 months virtually. documented as of this encounter Visit Diagnoses Not on filedocumented in this encounter Care Teams Candy Spreader Helper Relationship Specialty Start Date End Date Farhat Cabezas MD PCP - General Family Medicine 01/13/11 Farhat Cabezas MD Referring Family Medicine 01/08/22 Farhat Cabezas MD [address] [place] [address] Referring Family Medicine 07/26/24 documented as of this encounter
--- OUTSIDE RECORDS SUMMARY | 2024-09-13 10:41 | XMS_ITS | Encounter Summary ---
Author Organization [facility] Address [address] [place] [address] Care Team Providers Care Small Business Representative Name Role Phone Farhat Cabezas MD Primary Care Provider [phone] Farhat Cabezas MD Unavailable [phone] Farhat Cabezas MD Unavailable [phone] Source Comments In the event this [...] Description 08/26/2017 Patient Msg General Surgery [address] [place] [address] Monica Adam RN diarrhea Social [...] Contact Info) Description 09/13/2024 2:00 PM EDT [facility] Diabetic Education [facility] [address] [place] [address] [place] [address] [place] [address] Type 2 diabetes mellitus with hyperglycemia, with long-term current use of insulin (HCC) [E11.65, Z79.4] 11/20/2024 1:00 PM EDT [facility] Endocrinology [address] [place] [address] Valdez Suarez MD [address] [place] [address] [place] [address] follow up in 6 months 01/03/2025 10:00 AM [facility] Endocrinology [address] [place] [address] Greg Nina APRN.NURSING EXECUTIVE [address] [place] [address] diabetes follow up in 3 months virtually. documented as of this encounter Visit Diagnoses Not on filedocumented in this encounter Care Teams Small Business Representative Relationship Specialty Start Date End Date Farhat Cabezas MD PCP - General Family Medicine 01/13/11 Farhat Cabezas MD Referring Family Medicine 01/08/22 Farhat Cabezas MD [address] [place] [address] Referring Family Medicine 07/26/24 documented as of this encounter
--- OUTSIDE RECORDS SUMMARY | 2024-09-13 10:41 | XMS_ITS | Encounter Summary ---
Demographics Address [address] [place] [address] Home Phone Mobile Phone Email Address Preferred Language ENG Marital Status Single Caodaism Affiliation Unknown Race White Ethnic Group Not or Lati no Author Organization [facility] Address [facility] [place] [address] Care Team Providers Care Mechanical Car Checker Name Role Phone Farhat Cabezas MD Primary Care Provider [phone] Farhat Cabezas MD Unavailable [phone] Farhat Cabezas MD Unavailable [phone] Source Comments In the event this information is protected by the Federal Confidentiality of Alcohol and Drug AbusePatient Records regulations: The Federal rules restrict any use of the information to criminally investigate or prosecute any alcohol or drug abuse patient.[facility] Encounter Details Date Type Department Care Team (Late st Contact Info) Description 11/22/2020 Get Medical Advice [facility] Physical Therapy [address] [place] [address] Tammy Rodriges, CARY [address] [place] [address] Upcoming Appointment Question Social History [...] N ot on file 01/16/2020 Data from: https://www.neighborhoodatlas.medicine.[facility]/. Last address used for [...] Contact Info) Description 09/13/2024 2:00 PM EDT [facility] [address] [place] [address] [place] [address] [place] [address] Type 2 diabetes mellitus with hyperglycemia, with long-term current use of insulin (HCC) [E11.65, Z79.4] 11/20/2024 1:00 PM EDT [facility] Endocrinology [address] [place] [address] Valdez Suarez MD [address] [place] [address] [address] [place], [place] [address]65[address] follow up in 6 months 01/03/2025 10:00 AM EST [facility] Endocrinology [address] [place] [address] Greg Nina APRN.MANAGER RN CASE [address] [place], [place] [address]1239 diabetes follow up in 3 months virtually. documented as of this encounter Visit Diagnoses Not on filedocumented in this encounter Care Teams Mechanical Car Checker Relationship Specialty Start Date End Date Farhat Cabezas MD PCP - General Family Medicine 01/13/11 Farhat Cabezas MD Referring Family Medicine 01/08/22 Farhat Cabezas MD [address] [place] [address] Referring Family Medicine 07/26/24 documented as of this encounter
--- OUTSIDE RECORDS SUMMARY | 2024-09-13 10:41 | XMS_ITS | Encounter Summary ---
Author Organization [facility] Address [address] [place] [address] Care Team Providers Care Licensed Vocational Nurse Name Role Phone Farhat Cabezas MD Primary Care Provider [phone] Farhat Cabezas MD Unavailable [phone] Farhat Cabezas MD Unavailable [phone] Source Comments In the event this information is protected by the Federal Confidentiality of Alcohol and Drug AbusePatient Records regulations: The Federal rules restrict any use of the information to criminally investigate or prosecute any alcohol or drug abuse patient.[facility] Encounter Details Date Type Department Care Team (Late st Contact Info) Description 08/31/2016 Patient Msg Medical Records [address] [place] [address] Provider, Ccf [facility] [...] Contact Info) Description 09/13/2024 2:00 PM EDT [facility] Diabetic Education [facility] [address] [place], [place] [phone] [place] [address] [place] [address] Type 2 diabetes mellitus with hyperglycemia, with long-term current use of insulin (HCC) [E11.65, Z79.4] 11/20/2024 1:00 PM EDT [facility] Endocrinology [address] [place] [address] Valdez Suarez MD [address] [place] [address] [address] [place], [place] 1148035 follow up in 6 months 01/03/2025 10:00 AM EST [facility] Endocrinology [address] [place] [address] Greg Nina, MARITZA.SENIOR SQL SERVER DEVELOPER [address] [place], [place] 8409[address] diabetes follow up in 3 months virtually. documented as of this encounter Visit Diagnoses Not on filedocumented in this encounter Care Teams Licensed Vocational Nurse Relationship Specialty Start Date End Date Farhat Cabezas MD PCP - General Family Medicine 01/13/11 Farhat Cabezas MD Referring Family Medicine 01/08/22 Farhat Cabezas MD [address] [place] [address] Referring Family Medicine 07/26/24 documented as of this encounter
--- OUTSIDE RECORDS SUMMARY | 2024-09-13 10:41 | XMS_ITS | Encounter Summary ---
Demographics Address [address] [facility] [address] [place] [address] Home Phone Mobile Phone Email Address Preferred Language ENG Marital Status Single Nondenominational Affiliation Unknown Race White Ethnic Group Not or Lati no Author Organization [facility] Address [address] [place] [address] Care Team Providers Care Clinic Cma Name Role Phone Farhat Cabezas MD Primary Care Provider [phone] Farhat Cabezas MD Unavailable [phone] Farhat Cabezas MD Unavailable [phone] Source Comments In the event this information is protected by the Federal Confidentiality of Alcohol and Drug AbusePatient Records regulations: The Federal rules restrict any use of the information to criminally investigate or prosecute any alcohol or drug abuse patient.[facility] Encounter Details Date Type Department Care Team (Late st Contact Info) Description 12/22/2020 Patient Msg Rheumatology [address] [address] Lorenzo Perry DO [address] [facility] [address] [place] [address] Request an Appointment Social History Tobacco Use [...] N ot on file 01/16/2020 Data from: https://www.neighborhoodatlas.medicine.[facility]/. Last address used for [...] Contact Info) Description 09/13/2024 2:00 PM EDT [facility] Diabetic Education [facility] [address] [place] [address] [place] [address] [place] [address] Type 2 diabetes mellitus with hyperglycemia, with long-term current use of insulin (HCC) [E11.65, Z79.4] 11/20/2024 1:00 PM EDT [facility] Endocrinology [address] [place] [address] Valdez Suarez MD [address] [place] [address] [address] [place], [place] 1513[address] follow up in 6 months 01/03/2025 10:00 AM EST [facility] Endocrinology [address] [place] [address] Greg Nina, MARITZA.OFFICIAL COURT REPORTER [address] [place], [place] [phone] diabetes follow up in 3 months virtually. documented as of this encounter Visit Diagnoses Not on filedocumented in this encounter Care Teams Clinic Cma Relationship Specialty Start Date End Date Farhat Cabezas MD PCP - General Family Medicine 01/13/11 Farhat Cabezas MD Referring Family Medicine 01/08/22 Farhat Cabezas MD [address] [place] [address] Referring Family Medicine 07/26/24 documented as of this encounter
--- OUTSIDE RECORDS SUMMARY | 2024-09-13 10:41 | XMS_ITS | Encounter Summary ---
Demographics Address [address] [place] [address] Home Phone Mobile Phone Email Address Preferred Language ENG Marital Status Single Orthodox Affiliation Unknown Race White Ethnic Group Not or Lati no Author Organization [facility] Address [address] [place] [address] Care Team Providers Care Expander Name Role Phone Farhat Cabezas MD Primary Care Provider [phone] Farhat Cabezas MD Unavailable [phone] Farhat Cabezas MD Unavailable [phone] Source Comments In the event this information is protected by the Federal Confidentiality of Alcohol and Drug AbusePatient Records regulations: The Federal rules restrict any use of the information to criminally investigate or prosecute any alcohol or drug abuse patient.[facility] Encounter Details Date Type Department Care Team (Late st Contact Info) Description 11/14/2020 Get Medical Advice Neurology [address] [place], [place] [phone] Jaelyn Rangel MD NO FORWARDING ADDRESS RE: [...] ot on file 01/16/2020 Data from: https://www.neighborhoodatlas.[facility]/. Last address used for [...] Contact Info) Description 09/13/2024 2:00 PM EDT [facility] [address] [address] [place] [address] [place] [address] Type 2 diabetes mellitus with hyperglycemia, with long-term current use of insulin (HCC) [E11.65, Z79.4] 11/20/2024 1:00 PM EDT [facility] Endocrinology [address] [place] [address] Valdez Suarez MD [address] [place] [address] [place] [address] follow up in 6 months 01/03/2025 10:00 AM EST [facility] Endocrinology [address] [place] [address] Greg Nina APRN.VICE PRESIDENT RISK MANAGEMENT [address] [place], [place] [phone] diabetes follow up in 3 months virtually. documented as of this encounter Visit Diagnoses Not on filedocumented in this encounter Care Teams Expander Relationship Specialty Start Date End Date Farhat Cabezas MD PCP - General Family Medicine 01/13/11 Farhat Cabezas MD Referring Family Medicine 01/08/22 Farhat Cabezas MD [address] [place] [address] Referring Family Medicine 07/26/24 documented as of this encounter
--- OUTSIDE RECORDS SUMMARY | 2024-09-13 10:41 | XMS_ITS | Encounter Summary ---
Author Organization [facility] Address [address] [place] [address] Care Team Providers Care Metallurgical Analyst Name Role Phone Farhat Cabezas MD Primary Care Provider [phone] Farhat Cabezas MD Unavailable [phone] Farhat Cabezas MD Unavailable [phone] Source Comments In the event this information is protected by the Federal Confidentiality of Alcohol and Drug AbusePatient Records regulations: The Federal rules restrict any use of the information to criminally investigate or prosecute any alcohol or drug abuse patient.[facility] Reason for Referral * MRI/CT (Routine) - Closed Specialty Diagnoses / Procedures Referred By Kalina burciaga Referred To Contact MR IMAGING Diagnoses Chronic right shoulder pain Procedures MRI SHOULDER WO IVCON RT MRI, JOINT UPPER EXTREM Lorenzo Perry DO Phone: tel: fax: [place] [phone] Referral ID Status Reason Start Date Expiration Date Visits Requested Visits Authorized [id number] Closed Auto-Generated Referral Patient Cleared Patient agrees to sign AFR (INN Commercial or OON MA) 01/07/2021 02/07/2021 1 1 Encounter Details Date Type Department Care Team (Late st Contact Info) Description 12/27/2020 Get Medical Advice Rheumatology [address] [phone] Lorenzo Perry DO [address] [place] [address] MRI Social History Tobacco Use [...] ot on file 01/16/2020 Data from: https://www.neighborhoodatlas.medicine.[facility]/. Last address used for calculation Not [...] Contact Info) Description 09/13/2024 2:00 PM EDT [facility] Diabetic Education [facility] [address] [place] [address] [place] [address] [place], [place] [phone] Type 2 diabetes mellitus with hyperglycemia, with long-term current use of insulin (HCC) [E11.65, Z79.4] 11/20/2024 1:[address] [facility] Endocrinology [address] [place] [phone] Valdez Suarez MD [address] [place] [address] [place] [address] follow up in 6 months 01/03/2025 10:00 AM EST [facility] Endocrinology [address] [place] [phone] Greg Nina, MARITZA.DATABASE ADMINISTRATION PROJECT MANAGER [address] [place] [address] diabetes follow up in 3 months virtually. documented as of this encounter Results * MRI SHOULDER WO IVCON RT (01/08/2021 1:30 PM EST) Anatomical Region Laterality Modality Shoulder Magnetic Resonan ce 01/08/2021 1:30 PM EST Impressions 01/08/2021 3:06 PM EST IMPRESSION: Very small near full-thickness tear of the supraspinatus tendon at the anterior leading edge. Background rotator cuff tendinosis. Pick And Shovel Worker: SILVIA Transcribe Date/Time: Jan 08 2021 1:46P Dictated by : GERARDO VALLEJO MD This examination was interpreted and the report reviewed and electronically signed by: GERARDO VALLEJO MD on Jan 08 2021 3:04PM EST Narrative 01/08/2021 3:06 PM EST * * *Final Report* * * DATE OF EXAM: Jan 08 2021 1:30PM [facility] 0240 - MRI SHOULDER WO IVCON RT [...] findings. Localizer images: Unremarkable. Procedure Note Provider, [facility] [place] - 01/08/2021 * * *Final Report* * * DATE OF EXAM: Jan 08 2021 1:30PM [facility] 0240 - MRI SHOULDER WO IVCON RT [...] anterior leading edge. Background rotator cuff tendinosis. Pick And Shovel Worker: SILVIA Transcribe Date/Time: Jan 08 2021 1:46P Dictated by : GERARDO VALLEJO MD This examination was interpreted and the report reviewed and electronically signed by: GERARDO VALLEJO MD on Jan 08 2021 3:04PM EST Ahmed Josuerobert Perry DO MRI-PAMA Final Resul t documented in this encounter Visit Diagnoses Diagnosis Chronic right shoulder pain Pain in joint, shoulder region Chronic right shoulder pain Pain in joint, shoulder region documented in this encounter Care Teams Metallurgical Analyst Relationship Specialty Start Date End Date Farhat Cabezas MD PCP - General Family Medicine 01/13/11 Farhat Cabezas MD Referring Family Medicine 01/08/22 Farhat Cabezas MD [address] [place] [address] Referring Family Medicine 07/26/24 documented as of this encounter
--- OUTSIDE RECORDS SUMMARY | 2024-09-13 10:41 | XMS_ITS | Encounter Summary ---
Author Organization [facility] Address [address] [place] [address] Care Team Providers Care Gravity Prospecting Operator Helper Name Role Phone Farhat Cabezas MD Primary Care Provider [phone] Farhat Cabezas MD Unavailable [phone] Farhat Cabezas MD Unavailable [phone] Source Comments In the event this information is protected by the Federal Confidentiality of Alcohol and Drug AbusePatient Records regulations: The Federal rules restrict any use of the information to criminally investigate or prosecute any alcohol or drug abuse patient.[facility] Encounter Details Date Type Department Care Team (Late st Contact Info) Description 10/25/2016 Patient Msg Medical Records [address] [place] [address] Provider, Ccf [facility] [...] Contact Info) Description 09/13/2024 2:00 PM EDT [facility] [address] [place], [place] [phone] [place] [address] [place] [address] Type 2 diabetes mellitus with hyperglycemia, with long-term current use of insulin (HCC) [E11.65, Z79.4] 11/20/2024 1:00 PM EDT [facility] Endocrinology [address] [place] [phone] Valdez Suarez MD [address] [place] [address] [place], [place] [phone] follow up in 6 months 01/03/2025 10:00 AM EST [facility] Endocrinology [address] [place] [phone] Greg Nina, MARITZA.DISTRIBUTION SALES MANAGER [address] [place], [place] [phone] diabetes follow up in 3 months virtually. documented as of this encounter Visit Diagnoses Not on filedocumented in this encounter Care Teams Gravity Prospecting Operator Helper Relationship Specialty Start Date End Date Farhat Cabezas MD PCP - General Family Medicine 01/13/11 Farhat Cabezas MD Referring Family Medicine 01/08/22 Farhat Cabezas MD [address] [place] [address] Referring Family Medicine 07/26/24 documented as of this encounter
--- OUTSIDE RECORDS SUMMARY | 2024-09-13 10:41 | XMS_ITS | Encounter Summary ---
Demographics Address [address] [facility] [place] [address] Home Phone Mobile Phone Email Address Preferred Language ENG Marital Status Single Adventism Affiliation Unknown Race White Ethnic Group Not or Lati no Author Organization [facility] Address [address] [place] [address] Care Team Providers Care Suction Worker Name Role Phone Farhat Cabezas MD Primary Care Provider [phone] Farhat Cabezas MD Unavailable [phone] Farhat Cabezas MD Unavailable [phone] Source Comments In the event this [...] [facility] [address] [facility] [place] [phone] Provider, Ccf Request an Appointment Social History [...] on file 01/16/2020 Data from: https://www.neighborhoodatlas.[facility]/. Last address used for [...] Contact Info) Description 09/13/2024 2:00 PM EDT [facility] [address] [place] [address] [place] [address] [place] [address] Type 2 diabetes mellitus with hyperglycemia, with long-term current use of insulin (HCC) [E11.65, Z79.4] 11/20/2024 1:00 PM EDT [facility] Endocrinology [address] [place] [phone] Valdez Suarez MD [address] [place] [address] [place], [place] [phone] follow up in 6 months 01/03/2025 10:00 AM EST [facility] Endocrinology [address] [place] [phone] Greg Nina APRN.[facility] [address] [place], [place] [phone] diabetes follow up in 3 months virtually. documented as of this encounter Visit Diagnoses Not on filedocumented in this encounter Care Teams Suction Worker Relationship Specialty Start Date End Date Farhat Cabezas MD PCP - General Family Medicine 01/13/11 Farhat Cabezas MD Referring Family Medicine 01/08/22 Farhat Cabezas MD [address] [place] [address] Referring Family Medicine 07/26/24 documented as of this encounter
--- OUTSIDE RECORDS SUMMARY | 2024-09-13 10:42 | XMS_ITS | Encounter Summary ---
Author Organization [facility] Address [address] [place] [address] Care Team Providers Care Assistant Baseball Coach Name Role Phone Farhat Cabezas MD Primary Care Provider [phone] Farhat Cabezas MD Unavailable [phone] Farhat Cabezas MD Unavailable [phone] Source Comments In the event this information is protected by the Federal Confidentiality of Alcohol and Drug AbusePatient Records regulations: The Federal rules restrict any use of the information to criminally investigate or prosecute any alcohol or drug abuse patient.[facility] Encounter Details Date Type Department Care Team (Late st Contact Info) Description 10/04/2017 Patient Msg General Surgery [address] [place] [address] Provider, Ccf EGD/Colonoscopy Prep Instructions for 10/13/17 [...] Contact Info) Description 09/13/2024 2:00 PM EDT [facility] Diabetic Education [facility] [address] [place] [address] [place] [address] [place], [place] [phone] Type 2 diabetes mellitus with hyperglycemia, with long-term current use of insulin ([facility]) [E11.65, Z79.4] 11/20/2024 1:00 PM EDT [facility] Endocrinology [address] [place] [address] Valdez Suarez MD [address] [place] [address] [place], [place] [phone] follow up in 6 months 01/03/2025 10:00 AM [facility] Endocrinology [address] [place] [address] Greg Nina APRN.STREET VENDOR [address] [place] [address] diabetes follow up in 3 months virtually. documented as of this encounter Visit Diagnoses Not on filedocumented in this encounter Care Teams Assistant Baseball Coach Relationship Specialty Start Date End Date Farhat Cabezas MD PCP - General Family Medicine 01/13/11 Farhat Cabezas MD Referring Family Medicine 01/08/22 Farhat Cabezas MD [address] [place] [address] Referring Family Medicine 07/26/24 documented as of this encounter
--- OUTSIDE RECORDS SUMMARY | 2024-09-13 10:42 | XMS_ITS | Encounter Summary ---
Demographics Address [address] [facility] [place] [address] Home Phone Mobile Phone Email Address Preferred Language ENG Marital Status Single Anabaptism Affiliation Unknown Race White Ethnic Group Not or Lati no Author Organization [facility] Address [address] [place] [address] Care Team Providers Care Central Sterile Tech Name Role Phone Farhat Cabezas MD Primary Care Provider [phone] Farhat Cabezas MD Unavailable [phone] Farhat Cabezas MD Unavailable [phone] Source Comments In the event this information is protected by the Federal Confidentiality of Alcohol and Drug AbusePatient Records regulations: The Federal rules restrict any use of the information to criminally investigate or prosecute any alcohol or drug abuse patient.[facility] Encounter Details Date Type Department Care Team (Late st Contact Info) Description 02/04/2021 Get Medical Advice Rheumatology [address] [address] Lorenzo Perry DO 4302 [facility][1] [address] [place] [phone] Medication / Pain issues Social History Tobacco [...] N ot on file 01/16/2020 Data from: https://www.neighborhoodatlas.medicine.[facility]/. Last address used for calculation [...] Contact Info) Description 09/13/2024 2:00 PM EDT [facility] Diabetic Education [facility] [address] [place] [address] [place] [address] [place] [address] Type 2 diabetes mellitus with hyperglycemia, with long-term current use of insulin (HCC) [E11.65, Z79.4] 11/20/2024 1:00 PM EDT [facility] Endocrinology [address] [place] [address] Valdez Suarez MD [address] [place] [address] [place], [place] [phone] follow up in 6 months 01/03/2025 10:00 AM EST [facility] Endocrinology [address] [place] [phone] Greg Nina, MARITZA.FASHION SUPERVISOR [address] [place], [place] 8894439 diabetes follow up in 3 months virtually. documented as of this encounter Visit Diagnoses Not on filedocumented in this encounter Care Teams Central Sterile Tech Relationship Specialty Start Date End Date Farhat Cabezas MD PCP - General Family Medicine 01/13/11 Farhat Cabezsa MD Referring Family Medicine 01/08/22 Farhat Cabezas MD [address] [place] [address] Referring Family Medicine 07/26/24 documented as of this encounter
--- OUTSIDE RECORDS SUMMARY | 2024-09-13 10:42 | XMS_ITS | Encounter Summary ---
Demographics Address [address] [place] [address] Home Phone Mobile Phone Email Address Preferred Language ENG Marital Status Single Orthodoxy Affiliation Unknown Race White Ethnic Group Not or Lati no Author Organization [facility] Address [address] [place] [address] Care Team Providers Care Rectangular Tank Cooper Name Role Phone Farhat Cabezas MD Primary Care Provider [phone] Farhat Cabezas MD Unavailable [phone] Farhat Cabezas MD Unavailable [phone] Source Comments In the event this information is protected by the Federal Confidentiality of Alcohol and Drug AbusePatient Records regulations: The Federal rules restrict any use of the information to criminally investigate or prosecute any alcohol or drug abuse patient.[facility] Encounter Details Date Type Department Care Team (Late st Contact Info) Description 04/26/2023 GI Preprocedure Call Gastroenterology [address] [phone] Shnaia Sotomayor LPN Social History Tobacco Use Types [...] is lower risk 2 12/21/2022 Data from: https://www.neighborhoodatlas.[facility]/. Last address used for calculation [...] 09/13/2024 2:00 PM EDT [facility] Diabetic Education [facility] [address] [place] [address] [place] [address] [place] [address] Type 2 diabetes mellitus with hyperglycemia, with long-term current use of insulin (HCC) [E11.65, Z79.4] 11/20/2024 1:00 PM EDT [facility] Endocrinology [address] [place] [phone] Valdez Suarez MD [address] [place] [address] [place], [place] [phone] follow up in 6 months 01/03/2025 10:00 AM EST [facility] Endocrinology [address] [place] [address] Greg Nina APRN.MANUFACTURING SUPERVISOR 2ND SHIFT [address] [place] [address] diabetes follow up in 3 months virtually. documented as of this encounter Visit Diagnoses Not on filedocumented in this encounter Care Teams Rectangular Tank Cooper Relationship Specialty Start Date End Date Farhat Cabezas MD PCP - General Family Medicine 01/13/11 Farhat Cabezas MD Referring Family Medicine 01/08/22 Farhat Cabezas MD [address] [place] [address] Referring Family Medicine 07/26/24 documented as of this encounter
--- OUTSIDE RECORDS SUMMARY | 2024-09-13 10:42 | XMS_ITS | Encounter Summary ---
Author Organization [facility] Address [address] [place] [address] Care Team Providers Care Mat Inspector Name Role Phone Farhat Cabezas MD Primary Care Provider [phone] Farhat Cabezas MD Unavailable [phone] Farhat Cabezas MD Unavailable [phone] Source Comments In the event this information is protected by the Federal Confidentiality of Alcohol and Drug AbusePatient Records regulations: The Federal rules restrict any use of the information to criminally investigate or prosecute any alcohol or drug abuse patient.[facility] Encounter Details Date Type Department Care Team (Late st Contact Info) Description 12/24/2016 Patient Msg Medical Records [address] [place] [address] Provider, Ccf RE:Folllow up from psychology group [...] Description 09/13/2024 2:00 PM EDT [facility] Di[facility] Education [facility] [address] [place] [address] [place] [address] [place] [address] Type 2 diabetes mellitus with hyperglycemia, with long-term current use of insulin (HCC) [E11.65, Z79.4] 11/20/2024 1:00 PM EDT [facility] Endocrinology [address] [place] [phone] Valdez Suarez MD [address] [place] [address] [place] [address] follow up in 6 months 01/03/2025 10:00 AM [facility] Endocrinology [address] [place] [phone] Greg Nina APRN.BANK EXAMINER [address] [place] [address] diabetes follow up in 3 months virtually. documented as of this encounter Visit Diagnoses Not on filedocumented in this encounter Care Teams Mat Inspector Relationship Specialty Start Date End Date Farhat Cabezas MD PCP - General Family Medicine 01/13/11 Farhat Cabezas MD Referring Family Medicine 01/08/22 Farhat Cabezas MD [address] [place] [address] Referring Family Medicine 07/26/24 documented as of this encounter
--- OUTSIDE RECORDS SUMMARY | 2024-09-13 10:42 | XMS_ITS | Encounter Summary ---
Author Organization [facility] Address [address] [place] [address] Care Team Providers Care Specialist Employee Labor Relations Name Role Phone Farhat Cabezas MD Primary Care Provider [phone] Farhat Cabezas MD Unavailable [phone] Farhat Cabezas MD Unavailable [phone] Source Comments In the event this information is protected by the Federal Confidentiality of Alcohol and Drug AbusePatient Records regulations: The Federal rules restrict any use of the information to criminally investigate or prosecute any alcohol or drug abuse patient.[facility] Encounter Details Date Type Department Care Team (Late st Contact Info) Description 05/26/2018 Abstract BMI [facility] REJ [address] [place] [address] Rachel Yi MD [address] [place] [address] Social History Tobacco Use Types [...] Contact Info) Description 09/13/2024 2:00 PM EDT [facility] Diabetic Education [facility] [address] [place] [address] [place] [address] [place], [place] [phone] Type 2 diabetes mellitus with hyperglycemia, with long-term current use of insulin (HCC) [E11.65, Z79.4] 11/20/2024 1:00 PM EDT [facility] Endocrinology [address] [place] [phone] Valdez Suarez MD [address] [place] [address] [place] [address] follow up in 6 months 01/03/2025 10:00 AM [facility] Endocrinology [address] [place] [phone] Greg Nina APRN.COTTON TIPPER [address] [place], [place] [phone] diabetes follow up in 3 months virtually. documented as of this encounter Visit Diagnoses Not on filedocumented in this encounter Care Teams Specialist Employee Labor Relations Relationship Specialty Start Date End Date Farhat Cabezas MD PCP - General Family Medicine 01/13/11 Farhat Cabezas MD Referring Family Medicine 01/08/22 Farhat Cabezas MD [address] [place] [address] Referring Family Medicine 07/26/24 documented as of this encounter
--- OUTSIDE RECORDS SUMMARY | 2024-09-13 10:42 | XMS_ITS | Encounter Summary ---
Demographics Address [address] [place] [address] Home Phone Mobile Phone Email Address Preferred Language ENG Marital Status Single Uatsdin Affiliation Unknown Race White Ethnic Group Not or Lati no Author Organization [facility] Address [address] [place] [address] Care Team Providers Care Tunnel Heading Supervisor Name Role Phone Farhat Cabezas MD Primary Care Provider [phone] Farhat Cabezas MD Unavailable [phone] Farhat Cabezas MD Unavailable [phone] Source Comments In the event this information is protected by the Federal Confidentiality of Alcohol and Drug AbusePatient Records regulations: The Federal rules restrict any use of the information to criminally investigate or prosecute any alcohol or drug abuse patient.[facility] Encounter Details Date Type Department Care Team (Late st Contact Info) Description 08/24/2024 Patient [facility] -[address] [place] [address] Renetta Moore RPh At your next appointment, choose [facility]. Social History Tobacco Use [...] is lower risk 7 03/07/2024 Data from: https://www.neighborhoodatlas.[facility]/ . Last address used for calculation [address] 03/07/2024 Comments No Sex and [...] Contact Info) Description 09/13/2024 2:00 PM EDT [facility] Di[facility] [address] [place] [address] [place] [address] [place] [address] Type 2 diabetes mellitus with hyperglycemia, with long-term current use of insulin (HCC) [E11.65, Z79.4] 11/20/2024 1:00 PM EDT [facility] End[facility]ology [address] [place] [phone] Valdez Suarez MD [address] [place] [address] [place], [place] [id number] follow up in 6 months 01/03/2025 10:00 AM EST [facility] [address] [place] [address] Greg Nina APRN.ORACLE SOA ARCHITECT [address] [place] [address] diabetes follow up in 3 months virtually. documented as of this encounter Visit Diagnoses Not on filedocumented in this encounter Care Teams Tunnel Heading Supervisor Relationship Specialty Start Date End Date Farhat Cabezas MD PCP - General Family Medicine 01/13/11 Farhat Cabezas MD Referring Family Medicine 01/08/22 Farhat Cabezas MD [address] [place] [address] Referring Family Medicine 07/26/24 documented as of this encounter
--- OUTSIDE RECORDS SUMMARY | 2024-09-13 10:42 | XMS_ITS | Encounter Summary ---
Author Organization [facility] Address [address] [place] [address] Care Team Providers Care Lye Boiler Name Role Phone Farhat Cabezas MD Primary Care Provider [phone] Farhat Cabezas MD Unavailable [phone] Farhat Cabezas MD Unavailable [phone] Source Comments In the event this information is protected by the Federal Confidentiality of Alcohol and Drug AbusePatient Records regulations: The Federal rules restrict any use of the information to criminally investigate or prosecute any alcohol or drug abuse patient.[facility] Encounter Details Date Type Department Care Team (Late st Contact Info) Description 04/15/2018 Patient Msg Medical Records [address] [place] [address] Provider, [facility] Counseling Referrals Social History Tobacco [...] Contact Info) Description 09/13/2024 2:00 PM EDT [facility] Diabetic Education [facility] [address] [place] [address] [place] [address] [place] [address] Type 2 diabetes mellitus with hyperglycemia, with long-term current use of insulin (HCC) [E11.65, Z79.4] 11/20/2024 1:00 PM EDT [facility] End[facility] [address] [place] [phone] Valdez Suarez MD [address] [place] [address] [place], [place] [phone] follow up in 6 months 01/03/2025 10:00 AM EST [facility]ology [address] [place] [phone] Greg Nina, TEST SKEIN WINDER.SMART GRID ENGINEER [address] [place] [address] diabetes follow up in 3 months virtually. documented as of this encounter Visit Diagnoses Not on filedocumented in this encounter Care Teams Lye Boiler Relationship Specialty Start Date End Date Farhat Cabezas MD PCP - General Family Medicine 01/13/11 Farhat Cabezas MD Referring Family Medicine 01/08/22 Farhat Cabezas MD [address] [place] [address] Referring Family Medicine 07/26/24 documented as of this encounter
--- OUTSIDE RECORDS SUMMARY | 2024-09-13 10:42 | XMS_ITS | Encounter Summary ---
Demographics Address [address] [place] [address] Home Phone Mobile Phone Email Address Preferred Language ENG Marital Status Single Mandaeism Affiliation Unknown Race White Ethnic Group Not or Lati no Author Organization [facility] Address [address] [place] [address] Care Team Providers Care Hematology Nurse Name Role Phone Farhat Cabezas MD Primary Care Provider [phone] Farhat Cabezas MD Unavailable [phone] Farhat Cabezas MD Unavailable [phone] Source Comments In the event this information is protected by the Federal Confidentiality of Alcohol and Drug AbusePatient Records regulations: The Federal rules restrict any use of the information to criminally investigate or prosecute any alcohol or drug abuse patient.[facility] Encounter Details Date Type Department Care Team (Late st Contact Info) Description 01/20/2021 [place] [address] Provider, [facility] MRI Screening Questionnaire Completion Required [...] N ot on file 01/16/2020 Data from: https://www.neighborhoodatlas.[facility]/. Last address used for calculation Not on [...] Info) Description 09/13/2024 2:00 PM EDT [facility] [address] [place] [address] [place] [address] [place] [address] Type 2 diabetes mellitus with hyperglycemia, with long-term current use of insulin (HCC) [E11.65, Z79.4] 11/20/2024 1:00 PM EDT [facility] Endocrinology [address] [place] [phone] Valdez Suarez MD [address] [place] [address] [place], [place] [id number] follow up in 6 months 01/03/2025 10:00 AM EST [facility] Endocrinology [address] [place] [address] Greg Nina APRN.[facility] [address] [place], [place] [id number] diabetes follow up in 3 months virtually. documented as of this encounter Visit Diagnoses Not on filedocumented in this encounter Care Teams Hematology Nurse Relationship Specialty Start Date End Date Farhat Cabezas MD PCP - General Family Medicine 01/13/11 Farhat Cabezas MD Referring Family Medicine 01/08/22 Farhat Cabezas MD [address] [place] [address] Referring Family Medicine 07/26/24 documented as of this encounter
--- OUTSIDE RECORDS SUMMARY | 2024-09-13 10:42 | XMS_ITS | Encounter Summary ---
Demographics Address [address] [place] [address] Home Phone Mobile Phone Email Address Preferred Language ENG Marital Status Single Pentecostalism Affiliation Unknown Race White Ethnic Group Not or Lati no Author Organization [facility] Address [address] [place] [address] Care Team Providers Care Agricultural Education Teacher Name Role Phone Farhat Cabezas MD Primary Care Provider [phone] Farhat Cabezas MD Unavailable [phone] Farhat Cabezas MD Unavailable [phone] Source Comments In the event this information is protected by the Federal Confidentiality of Alcohol and Drug AbusePatient Records regulations: The Federal rules restrict any use of the information to criminally investigate or prosecute any alcohol or drug abuse patient.[facility] Encounter Details Date Type Department Care Team (Late st Contact Info) Description 09/04/2024 Patient Msg Gastroenterology [address] [address] Provider, [facility] Colonoscopy Prep Instructions Social History Tobacco Use Types Packs/Day [...] is lower risk 2 08/30/2024 Data from: https://www.neighborhoodatlas.[facility]/. Last address used for calculation [address] [facility] 08/30/2024 Comments No Sex and Gender Information [...] Contact Info) Description 09/13/2024 2:00 PM EDT [facility] Diabetic Education [facility] [address] [place] [address] [place] [address] [place], [place] [phone] Type 2 diabetes mellitus with hyperglycemia, with long-term current use of insulin (HCC) [E11.65, Z79.4] 11/20/2024 1:00 PM EDT [facility] Endocrinology [address] [place] [phone] Valdez Suarez MD [address] [place] [address] [address] [place], [place] [phone] follow up in 6 months 01/03/2025 10:00 AM EST [facility] Endocrinology [address] [place] [address] Greg Nina APRN.PRINCIPAL JAVA DEVELOPER [address] [place] [address] diabetes follow up in 3 months virtually. documented as of this encounter Visit Diagnoses Not on filedocumented in this encounter Care Teams Agricultural Education Teacher Relationship Specialty Start Date End Date Farhat Cabezas MD PCP - General Family Medicine 01/13/11 Farhat Cabezas MD Referring Family Medicine 01/08/22 Farhat Cabezas MD [address] [place] [address] Referring Family Medicine 07/26/24 documented as of this encounter
--- OUTSIDE RECORDS SUMMARY | 2024-09-13 10:42 | XMS_ITS | Encounter Summary ---
Demographics Address [address] [facility] [place] [address] Home Phone Mobile Phone Email Address [email or web address] Preferred Language ENG Marital Status Single Confucianist Affiliation Unknown Race White Ethnic Group Not or Lati no Author Organization [facility] Address [address] [place] [address] Care Team Providers Care Officer Captain Name Role Phone Farhat Cabezas MD Primary Care Provider [phone] Farhat Cabezas MD Unavailable [phone] Farhat Cabezas MD Unavailable [phone] Source Comments In the event this information is protected by the Federal Confidentiality of Alcohol and Drug AbusePatient Records regulations: The Federal rules restrict any use of the information to criminally investigate or prosecute any alcohol or drug abuse patient.[facility] Encounter Details Date Type Department Care Team (Late st Contact Info) Description 01/05/2021 Get Medical Advice Rheumatology [address] [address] Lorenzo Perry DO [address] [facility] [address] [place] [phone] Mri/pain shoulder Social History Tobacco Use Types [...] ot on file 01/16/2020 Data from: https://www.neighborhoodatlas.medicine.[facility]/. Last address used [...] Contact Info) Description 09/13/2024 2:00 PM EDT [facility] Diabetic Education [facility] [address] [place] [address] [place] [address] [place] [address] Type 2 diabetes mellitus with hyperglycemia, with long-term current use of insulin (HCC) [E11.65, Z79.4] 11/20/2024 1:00 PM EDT [facility] Endocrinology [address] [place] [phone] Valdez Suarez MD [address] [place] [address] [address] [place], [place] [phone] follow up in 6 months 01/03/2025 10:00 AM EST [facility] Endocrinology [address] [place] [phone] Greg Nina, MARITZA.LICENSED LIFE AND HEALTH AGENT [address] [place], [place] [phone] diabetes follow up in 3 months virtually. documented as of this encounter Visit Diagnoses Not on filedocumented in this encounter Care Teams Officer Captain Relationship Specialty Start Date End Date Farhat Cabezas MD PCP - General Family Medicine 01/13/11 Farhat Cabezas MD Referring Family Medicine 01/08/22 Farhat Cabezas MD [address] [place] [address] Referring Family Medicine 07/26/24 documented as of this encounter
--- OUTSIDE RECORDS SUMMARY | 2024-09-13 10:42 | XMS_ITS | Clinical Summary ---
Author Organization [facility] Address [address] [place] [address] Care Team Providers Care Staff Midwife Name Role Phone Farhat Cabezas MD Primary Care Provider [phone] Farhat Cabezas MD Unavailable [phone] Farhat Cabezas MD Unavailable Allergies Active Allergy Reactions Criticality Noted Date [...] tubing, humidity, filters. Dx: G47.33 022 Active CPAP/BIPAP/OTHER Type .CPAPSettings into a note to see current settings/supplies/ DME information. 1 Each 022 2049 Active glucagon (BAQSIMI) 3 mg/actuation nasal sprayIndications:Ty pe 2 diabetes mellitus with hypoglycemia without coma, without long-term current use of insulin (HCC) Use 1 [place] in the nose as needed for low [...] four times daily. 100 g 1 Active Mirtazapine (REMERON) 7.5 mg tablet Take 7.5 mg by mouth daily at bedtime. 16.5mg per patient Active albuterol HFA (VENTOLIN HFA) 90 mcg/actuation inhaler 1 puff as needed Inhalation every 4 hrs for 30 days Active folic acid 1 mg tablet Take 1 tablet by mouth every afternoon. Active thiamine (VITAMIN B1) 100 mg tablet Take 1 tablet by mouth every 12 hours. Active blood sugar diagnostic (TRUE METRIX GLUCOSE TEST STRIP) test stripIndications:Ty pe 2 diabetes mellitus with hypoglycemia without coma, without long-term current use of insulin (HCC) Use with blood glucose test two times a day. Insulin Dep? No 200 Strip 11 Active Blood-Glucose Meter (TRUE METRIX GLUCOSE METER)Indications:T ype 2 diabetes mellitus with hypoglycemia without coma, without long-term current use of insulin (HCC) dispense 1 meter 1 Each Active lancets (UNILET LANCETS) 30 gaugeIndications:Ty pe 2 diabetes mellitus with hypoglycemia without coma, without long-term current use of insulin (HCC) Use with blood glucose test two times a day. Insulin Dep? No 200 Each Active cyanocobalamin 1,000 mcg/mLIndications:A bnormal weight gain,S/P [...] complication, without long-term current use of insulin ([facility]) Inject 4.5 mg subcutaneously one time a week. 6 mL Active magnesium glycinate 100 mg magnesium capsuleIndications: Disturbance in sleep behavior Take 2 capsules by mouth daily at bedtime. 60 capsule 2025 Active Blood-Glucose Sensor (DEXCOM G7 SENSOR) deviIndications:Typ e 2 diabetes mellitus with hypoglycemia without coma, without long-term current use of insulin ([facility]) Use to check glucose 4 times or more daily. Change sensor every 10 days. 9 each Active ergocalciferol 50,000 unit capsule (VITAMIN D2, DRISDOL)Indications :Vitamin D insufficiency Take 1 capsule by mouth two times a week. 24 capsule 2025 Active acarbose (PRECOSE) 50 mg tabletIndications:T ype 2 diabetes mellitus with hyperglycemia, with long-term current use of insulin ([facility]),Type 2 diabetes mellitus with hypoglycemia without coma, without long-term current use of insulin ([facility]) Take 1 tablet by mouth three times a day. 270 tablet 1 2025 Active peg 3350-Electrolytes (GOLYTELY) 236-22.74-6.74 -5.86 gram suspension Refer to printed prep instructions from your provider. 4000 mL Active meclizine (ANTIVERT) 25 mg tab Take 0.5-1 tablets by mouth three times daily as needed (for dizziness.). 30 tablet 1 022 2024 Discontin ued(Disco ntinued by Patient) escitalopram oxalate (LEXAPRO) 10 mg tablet Take 10 mg by mouth once daily. 2024 Discontin ued(Disco ntinued by Patient) hydrOXYzine pamoate (VISTARIL) 25 mg capsule Take 25 mg by mouth two times a day as needed for anxiety. 50 mg per patient 2024 Discontin ued(Disco ntinued by Patient) ARIPiprazole (ABILIFY) 5 mg tablet Take 1 tablet by mouth once daily. 2024 Discontin ued(Disco ntinued by Patient) gabapentin (NEURONTIN) 100 mg capsule TAKE 1 CAPSULE BY MOUTH THREE TIMES DAILY FOR 15 DAYS 2024 Discontin ued(Disco ntinued by Patient) LORazepam (ATIVAN) 1 mg tablet 1 tablet Orally TID PRN 2024 Discontin ued(Disco ntinued by Patient) OLANZapine (ZYPREXA) 5 mg tablet TAKE 1 TABLET BY MOUTH EVERY 6 HOURS NEEDED for AGITATION FOR 15 DAYS 2024 Discontin ued(Disco ntinued by Patient) propranolol (INDERAL) 10 mg tablet 1 tablet Orally QID PRN 2024 Discontin ued(Disco ntinued by Patient) SUMAtriptan (IMITREX) 100 mg tablet 1 tablet at least 2 hours between doses as needed Orally Twice a day 2024 Discontin ued(Disco ntinued by Patient) metoprolol tartrate, short acting, (LOPRESSOR) 50 mg tablet Take one 50 mg tablet the evening prior to the CTA examination, take another 50 mg tablet the morning of the CTA examination. 2 tablet 2024 Discontin ued(Disco ntinued by Patient) nitroglycerin sublingual (NITROQUICK) 0.3 mg SL tablet Dissolve 1 tablet under the tongue one time only for 1 dose. To be administered in Radiology for CTA exam 1 tablet /23/ 2025 Discontin ued(Disco ntinued by Patient) semaglutide (OZEMPIC) 0.25 mg or 0.5 mg (2 mg/3 mL) penIndications:Type 2 diabetes mellitus with hypoglycemia without coma, without long-term current use of insulin (HCC) For the first 4 weeks, inject 0.25 mg once weekly. After 4 weeks, increase to 0.5 mg weekly and stay at that dose. 1 each 11 025 2024 Discontin ued(Cours e of therapy completed ) Active Problems Problem Noted Date Diagnosed Date [...] (09/24/2017): Added automatically from request for surgery [id number] Vomiting of fecal matter with nausea 09/24/2017 Overview (09/24/2017): Added automatically from request for surgery [id number] Postoperative malabsorption 03/04/2017 Pneumonia 12/06/2016 Nausea and [...] (08/31/2016): Added automatically from request for surgery [id number] Hernia, paraesophageal 08/31/201612/01 Overview (08/31/2016): Added automatically from request for surgery [id number] Mitral and aortic valve regurgitation 09/08/2009 10/23/2022 Overview (10/08/2017): Aortic insufficiency EF 60% DR Zuniga -- judged to be non-surgical and mild Encounters Date Type Department Care Team Description 09/04/2024 Patient Msg Gastroenterology [address] [address] Provider, Ccf Colonoscopy Prep Instructions 08/30/2024 9:30 AM EDT [facility] Endocrinology [address] [place] [phone] Greg Nina, OXIDE FURNACE TENDER.ACCREDITATION COORDINATOR Type 2 diabetes mellitus with hyperglycemia, with long-term current use of insulin (HCC) (Primary Dx); Type 2 diabetes mellitus with hypoglycemia without coma, without long-term current use of insulin (HCC); Obesity, Class III, BMI 40-49.9 (morbid obesity) (HCC); Depressive disorder; Personal history of gastric bypass 08/30/2024 Travel 08/24/2024 Patient Msg HOSPITAL PHARMACY HB-3 [address] [place] [address] Renetta Moore RPh At your next appointment, choose [facility]. 08/23/2024 Refill General Surgery [address] [place] [address] Rachel Yi MD Refill Request 07/26/2024 Transcribe Orders Referring Physician [address] [place] [address] Farhat Cabezas MD Esophageal stricture (Primary Dx); Diverticulitis of colon 07/07/2024 Patient Msg Neurology [address] [place] [phone] Thaddeus Diggs MD MRI denial 07/04/2024 Patient Msg Neurology [address] [place] [address] Provider, Ccf from Dr Duenas office 07/04/2024 Telephone Neurology [address] [place] [address] Thaddeus Diggs MD Sample Carrier - Other 07/04/2024 Patient Msg [facility] [place] [address] Provider, Ccf Phone call [facility] up 07/03/2024 [place] [address] Provider, Ccf MRI Screening Questionnaire Completion Required from Last 3 Months Immunizations Immunization Administration [...] is lower risk 2 08/30/2024 Data from: https://www.neighborhoodatlas.medicine.[facility]/. Last address used for calculation [address] 08/30/2024 Comments No Sex and Gender [...] EDT Inhaled Oxygen Concentration - - Weight 122 kg (269 lb) 08/30/2024 9:36 AM EDT Height 157.5 cm (5' 2 ) 09/27/2023 11:28 AM EDT Body Mass Index 49.2 09/27/2023 11:28 AM EDT Plan of Treatment Upcoming Encounters Date Type Department Care Team (Late st Contact Info) Description 09/13/2024 2:00 PM EDT [facility] Diabetic Education [facility] [address] [place] [address] [place] [address] [place], [place] [id number] Type 2 diabetes mellitus with hyperglycemia, with long-term current use of insulin (HCC) [E11.65, Z79.4] 11/20/2024 1:00 PM EDT [facility] Endocrinology [address] [place] [address] Valdez Suarez MD [address] [address] [address] [place], [place] [id number] follow up in 6 months 01/03/2025 10:00 AM [facility] Endocrinology [address] [place] [address] Greg Nina APRN.ACCREDITATION COORDINATOR [address] [place], [place] [phone] diabetes follow up in 3 months virtually. Health Maintenance Due Date Last Done Comments [...] 09/17/2021 Dilated Retinal Exam 06/12/2023 06/11/2022, 11/12/19 21 Diabetic Foot Exam 06/24/2023 06/23/2022 Shingrix Vaccine (1 of 2) 07/13/2023 Mammogram Screening 10/28/2023 10/27/2022 Medicare Annual Wellness [...] history exists Medical Devices Implanted Type Area Corporate Communications Intern Device Identifier Shelf Expiration Date Model / Serial / Lot Tube Diane 14fr Silicone Gastrostomy Balloon Bolus Feeding 3-5ml Sterile - [id number] Implanted:Qty: 1 on 11/24/2016 at [facility] Tube N/A: Abdomen Knowledgestreem 09/09/2019 0100-18 / / [id number] Description:18 moroccan DIANE ga strostomy feeding tube [facility] Procedures Procedure Name Priority Date/Time Associated Diagnosis Comments ALBUMIN/CREATININE RATIO, URINE Routine 05/29/2024 3:00 PM [...] without long-term current use of insulin (HCC) JUS SCREENING W SURINDER Routine 10/27/2022 10:46 [...] Recently Relevant to Health Maintenance Results * ALBUMIN/CREATININE RATIO, URINE (05/29/2024 3:00 PM EDT) Creatinine, Ur Random (UCRR) 208.7 20.0 - 300.0 mg/dL 05/30/2024 1:19 PM EDT [facility] Albumin, Urine Random 21.1 mg/L 05/30/2024 1:19 PM EDT [facility] Albumin/Creat Ratio 10 <30 mg/g 05/30/2024 1:19 PM EDT [facility] Comment: Adult Male and [...] 3:00 PM EDT 05/29/2024 3:00 PM EDT us Greg Nina APRN.ACCREDITATION COORDINATOR LABORATORY Final R esult [facility] [address] [place] [id number], * LIPID PANEL, FASTING (05/29/2024 2:55 PM EDT) Cholesterol, Total 132 <200 mg/dL 05/30/2024 4:41 AM EDT [facility] Comment: <200 mg/dL, Desirable 200-239 mg/dL, Borderline high >239 mg/dL, High Triglyceride 139 <150 mg/dL 05/30/2024 4:41 AM EDT [facility] Comment: <150 mg/dL, Normal 150-199 mg/dL, Borderline high 200-499 mg/dL, High >499 mg/dL, Very high HDL Cholesterol 41 >39 mg/dL 4:41 AM EDT [facility] Comment: 40-59 mg/dL, Acceptable >59 mg/dL, High: Negative risk factor for coronary heart disease <40 mg/dL, Low: Positive risk factor for coronary heart disease Non HDL Cholesterol 91 <130 mg/dL 05/30/2024 4:41 AM EDT [facility] Comment: <130 mg/dL, Optimal 130-159 mg/dL, Near optimal/above optimal 160-189 mg/dL, Borderline high 190-219 mg/dL, High >219 mg/dL, Very high Secondary prevention optimal non HDL Cholesterol levels are recommended to be <100 mg/dL Fasting Time 12 hrs 05/30/2024 4:41 AM T [facility] VLDL Cholesterol 28 <30 mg/dL 05/31/19 4:41 AM EDT [facility] TC:HDL Ratio 3.22 <5.10 05/30/2024 4:41 AM EDT [facility] LDL Cholesterol, Calculated 63 <100 mg/dL 05/30/2024 4:41 AM T [facility] Comment: <100 mg/dL, Optimal 100-129 mg/dL, Near optimal/above optimal 130-159 mg/dL, Borderline high 160-189 mg/dL, High >189 mg/dL, Very high Secondary prevention optimal LDL Cholesterol levels are recommended to be < 70 mg/dL LDL:HDL Ratio 1.54 <2.54 05/30/2024 4:41 AM T [facility] Comment: Reference: 1. National Cholesterol Education Program ATP III Guideline At-A-Glance Quick Desk Reference: National Heart, Lung, and Blood [place]. National Institutes of Health. 2001: NIH Publication No. 01-3305. 2. An International Atherosclerosis Society position paper: global recommendations for the management of dyslipidemia: executive summary, Atherosclerosis. 2014: 232(2):410-413. Blood BLOOD SPECIMEN / Unknown Venipuncture / Unknown 05/29/2024 2:55 PM EDT 05/29/2024 2:55 PM EDT us Greg Nina APRN.ACCREDITATION COORDINATOR LABORATORY Final R esult [facility] [address] [facility] [address] [place] [address], [facility] [address] [place] [address], [place] * (ABNORMAL) HEMOGLOBIN A1C (05/29/2024 2:55 PM EDT) Hemoglobin A1C 6.5(H) 4.3 - 5.6 % 05/30/2024 6:18 AM EDT [facility] Comment:[place] Diabetes As sociation guidelines indicate that patients with HgbA1c in the range 5.7-6.4% are at increased risk for development of diabetes, and intervention by lifestyle modification may be beneficial. HgbA1c greater or equal to 6.5% is considered diagnostic of diabetes. Estimated Average Glucose 140 mg/dL 05/30/2024 6:18 AM EDT [facility] Comment:eAG: (Estimated aver age glucose) is a calculated value from HgbA1c and is renewals representative of the average blood glucose level in the last 2-3 month period. Blood BLOOD SPECIMEN / Unknown Venipuncture / Unknown 05/29/2024 2:55 PM EDT 05/29/2024 2:55 PM EDT us Greg Nina APRN.ACCREDITATION COORDINATOR LABORATORY Final R esult [facility] [address] [facility] [address] [place] [address], [place] * JUS SCREENING W SURINDER (10/27/2022 10:46 AM EDT) Anatomical Region Laterality Modality Breast Other 10/27/2022 10:4 6 AM EDT Impressions 10/28/2022 7:43 AM EDT IMPRESSION: NEGATIVE There is no mammographic evidence of malignancy. A 1 year screening mammogram is recommended. The exam was reviewed by a staff physician. karen Canada M.D., D.O./caron:10/27/2022 11:12:38 Color Separation Photographer(s): RT Kristin(R)(M), [facility] letter sent: Normal over 40 Mammogram BI-RADS: [...] Health, Family Medicine, and Medical/Surgical Oncology, the [facility] has carefully reviewed the data and [...] their providers when to stop screening mammograms. Press Operator Automatic: Caron Transcribe Date/Time: Oct 27 2022 10:26A [...] Physician Interpretation * * * * RESULT: #[id number] - JUS SCREENING W SURINDER BILATERAL FIRST [...] seen in either breast. Procedure Note Provider, [facility] [place] - 10/28/2022 * * *Final Report* * * DATE OF EXAM: Oct 27 2022 10:46AM [id number] - JUS SCREENING W SURINDER / PROCEDURE REASON: Encounter for screening mammogram for malignant neoplasm of breast * * * * Physician Interpretation * * * * RESULT: #[id number] - JUS SCREENING W SURINDER BILATERAL FIRST [...] by a staff physician. Anne pack,karen/penrad:10/27/2022 11:12:38 Color Separation Photographer(s): DALI Foster)(M), [facility] letter sent: Normal over 40 Mammogram BI-RADS: [...] Health, Family Medicine, and Medical/Surgical Oncology, the [facility] has carefully reviewed the data and [...] their providers when to stop screening mammograms. Press Operator Automatic: Caron Transcribe Date/Time: Oct 27 2022 10:26A Dictated by: JING HALL DO This examination was interpreted and the report reviewed and electronically signed by: ANNE BOB MD on Oct 27 2022 11:12AM EST us Eleanor Chanel DO JUS-PAMA Final Res ult * PAP TEST (06/11/2022 12:41 PM EDT) Case Report Gynecologic Cytology Report Case: [id number] Authorizing Provider: Eleanor Chanel DO Collected: 06/11/2022 12:41 PM Ordering Location: CB/Gynecology Received: 06/12/2022 05:13 AM First Screen: Chiara Salguero CT, ASCP Rescreen: LEO Ng, ASCP Specimen: Pap Test, ThinPrep, Cervix 06/18/2022 12:27 PM EDT [facility] FINAL DIAGNOSIS A - Cervix Satisfactory for interpretation Negative for Intraepithelial lesion or malignancy. 06/18/2022 12:27 PM EDT [facility] at 1227 EDT LMP 04/06/2022 06/18/2022 12:27 PM EDT [facility] Pap Disclaimer The Pap Smear is a screening test for cervical cancer. False negative results occur with all screening tests, emphasizing the need for rescreening at recommended intervals, and clinical correlation. 06/18/2022 12:27 PM EDT [facility] PAP Tipple Supervisor Comment This specimen has been analyzed by the ThinPrep Imaging System, an automated imaging and review system, which assists the laboratory in evaluating cells on ThinPrep Pap tests. Following automated imaging, selected rojas from every slide are reviewed by a broadcast news producer. 06/18/2022 12:27 PM EDT [facility] Performing Lab Technical component, broadcast news producer screening performed at [facility], [address], [facility] [address] CLIA# [id number] Diagnostic interpretation performed at [facility], [address] [place], [place] [id number] IA# [id number] Production Control Coordinating Clerk: Moshe Craft M.D. 06/18/2022 12:27 PM EDT [facility] Clinical History Routine Exam 2022 12:27 PM EDT [facility] Comment:h/o CIN1 HPV Reflex Auto HPV 06/18/2022 12:27 PM EDT [facility] Cytology Interpretation Negative for Intraepithelial lesion or malignancy. 06/18/2022 12:27 PM EDT [facility] at 1227 EDT Sterile Fluid/Body Fluid CERVICAL / Unknown Non Blood / Unknown 06/11/2022 12:41 PM EDT 06/12/2022 5:13 AM EDT us Eleanor Chanel DO CYTOLOGY Final Res ult Performing Organization Address City/[facility]/ZIP Co de Phone Number [facility] [address] [facility] [address] [place] [address], * HCV QUANT RNA BY PCR (12/27/2020 12:49 PM EST) [facility] HCV RNA by PCR HCV RNA not detected by PCR. IU/mL 12/27/2020 8:00 PM EST [facility] [employer] Comment: Reference Range: Negative for HCV RNA The Linear Range of this assay is 15 IU/mL to 100,000,000 IU/mL. Blood OTHER / Unknown 12/27/2020 1 2:49 PM EST 12/27/2020 12:51 PM EST us Lorenzo Perry DO LABORATORY Final Resul t [facility] [address] [facility] [place] [address] [facility] [address] [place] [id number] * COLONOSCOPY (10/13/2017 8:01 AM EDT) [facility] Gastrointestinal Endoscopy Patient Name: Esme Reyes Procedure Date: 10/13/2017 8:01 AM Account Number: Date of : 1975 Admit Type: Outpatient Age: 42 Room: [facility] A Gender: Female Note Status: Finalized Attending [...] Pardo in one week for pathology results [phone] if you have not received letter, call [...] PhD [facility] Final Result [facility] [address] [place] [address] [facility] from Last 3 Months or Most Recently Relevant to Health Maintenance Insurance [place]ICAID [place] MEDICARE * Guarantor: Esme Reyes Account Type Relation to Patient Date of Phone Billing Address Vision Self 1975 [address] [place] [address] [place] [address] * Guarantor: Esme Reyes Account Type Relation to Patient Date of Phone Billing Address Self Pay Self 1975 [address] [place] [address] [place] [address] Advance Directives Documents on File Type Date Recorded 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
--- OUTSIDE RECORDS SUMMARY | 2024-09-13 10:42 | XMS_ITS | Encounter Summary ---
Author Organization [facility] Address [address] [place] [address] Care Team Providers Care Folder Seamer Name Role Phone Farhat Cabezas MD Primary Care Provider [phone] Farhat Cabezas MD Unavailable [phone] Farhat Cabezas MD Unavailable [phone] Source Comments In the event this information is protected by the Federal Confidentiality of Alcohol and Drug AbusePatient Records regulations: The Federal rules restrict any use of the information to criminally investigate or prosecute any alcohol or drug abuse patient.[facility] Encounter Details Date Type Department Care Team (Late st Contact Info) Description 02/09/2018 Patient Msg General Surgery [address] [place] [address] Monica Adam RN labs Social [...] Contact Info) Description 09/13/2024 2:00 PM EDT [facility] Diabetic Education [facility] [address] [place] [address] [place] [address] [place] [address] Type 2 diabetes mellitus with hyperglycemia, with long-term current use of insulin ([facility]) [E11.65, Z79.4] 11/20/2024 1:00 PM EDT [facility] Endocrinology [address] [place] [phone] Valdez Suarez MD [address] [place] [address] [place] [address] follow up in 6 months 01/03/2025 10:00 AM [facility] Endocrinology [address] [place] [address] Greg Nina APRN.TANK CARPENTER [address] [place] [address] diabetes follow up in 3 months virtually. documented as of this encounter Visit Diagnoses Not on filedocumented in this encounter Care Teams Folder Seamer Relationship Specialty Start Date End Date Farhat Cabezas MD PCP - General Family Medicine 01/13/11 Farhat Cabezas MD Referring Family Medicine 01/08/22 Farhat Cabezas MD [address] [place] [address] Referring Family Medicine 07/26/24 documented as of this encounter
--- OUTSIDE RECORDS SUMMARY | 2024-09-13 10:42 | XMS_ITS | Encounter Summary ---
Demographics Address [address] [place] [address] Home Phone Mobile Phone Email Address Preferred Language ENG Marital Status Single Congregation Affiliation Unknown Race White Ethnic Group Not or Lati no Author Organization [facility] Address [address] [place] [address] Care Team Providers Care Marketing Support Specialist Name Role Phone Farhat Cabezas MD Primary Care Provider [phone] Farhat Cabezas MD Unavailable [phone] Farhat Cabezas MD Unavailable Source Comments In the event this information is protected by the Federal Confidentiality of Alcohol and Drug AbusePatient Records regulations: The Federal rules restrict any use of the information to criminally investigate or prosecute any alcohol or drug abuse patient.[facility] Encounter Details Date Type Department Care Team (Late st Contact Info) Description 04/29/2023 Patient [facility] -[address] [place] [address] Renetta Moore RPh At your next appointment, choose [facility]. Social History Tobacco Use Types [...] is lower risk 2 12/21/2022 Data from: https://www.neighborhoodatlas.[facility]/. Last address used for calculation [address] [...] Description 09/13/2024 2:00 PM EDT [facility] Diabetic Education [facility] [address] [place] [address] [place] [address] [place] [address] Type 2 diabetes mellitus with hyperglycemia, with long-term current use of insulin (HCC) [E11.65, Z79.4] 11/20/2024 1:00 PM EDT [facility] Endocrinology [address] [place] [address] Valdez Suarez MD [address] [place] [address] [address] [place], [place] [phone] follow up in 6 months 01/03/2025 10:00 AM EST [facility] Endocrinology [address] [place] [address] Greg Nina APRN.[facility] [address] [place] [address] diabetes follow up in 3 months virtually. documented as of this encounter Visit Diagnoses Not on filedocumented in this encounter Care Teams Marketing Support Specialist Relationship Specialty Start Date End Date Farhat Cabezas MD PCP - General Family Medicine 01/13/11 Farhat Cabezas MD Referring Family Medicine 01/08/22 Farhat Cabezas MD [address] [place] [address] Referring Family Medicine 07/26/24 documented as of this encounter
--- OUTSIDE RECORDS SUMMARY | 2024-09-13 10:42 | XMS_ITS | Encounter Summary ---
Demographics Address [address] [facility] [place] [address] Home Phone Mobile Phone Email Address Preferred Language ENG Marital Status Single Episcopal Affiliation Unknown Race White Ethnic Group Not or Lati no Author Organization [facility] Address [address] [place] [address] Care Team Providers Care Solar Panel Installer Name Role Phone Farhat Cabezas MD Primary Care Provider [phone] Farhat Cabezas MD Unavailable [phone] Farhat Cabezas MD Unavailable [phone] Source Comments In the event this information is protected by the Federal Confidentiality of Alcohol and Drug AbusePatient Records regulations: The Federal rules restrict any use of the information to criminally investigate or prosecute any alcohol or drug abuse patient.[facility] Encounter Details Date Type Department Care Team (Late st Contact Info) Description 02/05/2021 Get Medical Advice Rheumatology [address] [address] Lorenzo Perry DO 4302 [facility] [address] [place] [phone] Fever / aches Social History Tobacco Use [...] N ot on file 01/16/2020 Data from: https://www.neighborhoodatlas.medicine.[facility]/. Last [...] Contact Info) Description 09/13/2024 2:00 PM EDT [facility] Diabetic Education [facility] [address] [place] [address] [place] [address] [place] [address] Type 2 diabetes mellitus with hyperglycemia, with long-term current use of insulin (HCC) [E11.65, Z79.4] 11/20/2024 1:00 PM EDT [facility] Endocrinology [address] [place] [address] Valdez Suarez MD [address] [place] [address] [address] [place], [place] [phone] follow up in 6 months 01/03/2025 10:00 AM EST [facility] Endocrinology [address] [place] [address] Greg Nina, MARITZA.SCHEDULING MANAGER [address] [place], [place] [phone] diabetes follow up in 3 months virtually. documented as of this encounter Visit Diagnoses Not on filedocumented in this encounter Care Teams Solar Panel Installer Relationship Specialty Start Date End Date Farhat Cabezas MD PCP - General Family Medicine 01/13/11 Farhat Cabezas MD Referring Family Medicine 01/08/22 Farhat Cabezas MD [address] [place] [address] Referring Family Medicine 07/26/24 documented as of this encounter
--- OUTSIDE RECORDS SUMMARY | 2024-09-13 10:42 | XMS_ITS | Encounter Summary ---
Demographics Address [address] [place] [address] Home Phone Mobile Phone Email Address Preferred Language ENG Marital Status Single Scientology Affiliation Unknown Race White Ethnic Group Not or Lati no Author Organization [facility] Address [address] [place] [address] Care Team Providers Care Internal Grinder Set Up Operator Name Role Phone Farhat Cabezas MD Primary Care Provider [phone] Farhat Cabezas MD Unavailable [phone] Farhat Cabezas MD Unavailable [phone] Source Comments In the event this information is protected by the Federal Confidentiality of Alcohol and Drug AbusePatient Records regulations: The Federal rules restrict any use of the information to criminally investigate or prosecute any alcohol or drug abuse patient.[facility] Encounter Details Date Type Department Care Team (Late st Contact Info) Description 04/26/2023 Patient Msg Endocrinology [address] [place] [address] [place] [address] [place] [address] Board Complaint Filed Social History [...] Data from: https://www.neighborhoodatlas.medicine.[facility]/. Last address used for calculation [address] [...] Contact Info) Description 09/13/2024 2:00 PM EDT [facility] Diabetic Education [facility] [address] [place], [place] [phone] [place] [address] [place] [address] Type 2 diabetes mellitus with hyperglycemia, with long-term current use of insulin (HCC) [E11.65, Z79.4] 11/20/2024 1:00 PM EDT [facility] Endocrinology [address] [place] [address] Valdez Suarez MD [address] [place] [address] [address] [place], [place] 0195035 follow up in 6 months 01/03/2025 10:00 AM EST [facility] Endocrinology [address] [place] [address] Greg Nina APRN.[facility] [address] [place], [place] [phone] diabetes follow up in 3 months virtually. documented as of this encounter Visit Diagnoses Not on filedocumented in this encounter Care Teams Internal Grinder Set Up Operator Relationship Specialty Start Date End Date Farhat Cabezas MD PCP - General Family Medicine 01/13/11 Farhat Cabezas MD Referring Family Medicine 01/08/22 Farhat Cabezas MD 1265 [place] [address] Referring Family Medicine 07/26/24 documented as of this encounter
--- OUTSIDE RECORDS SUMMARY | 2024-09-13 10:42 | XMS_ITS | Encounter Summary ---
Demographics Address [address] [place] [address] Home Phone Mobile Phone Email Address Preferred Language ENG Marital Status Single Church Affiliation Unknown Race White Ethnic Group Not or Lati no Author Organization [facility] Address [address] [place] [address] Care Team Providers Care Slot Shift Supervisor Name Role Phone Farhat Cabezas MD Primary Care Provider [phone] Farhat Cabezas MD Unavailable [phone] Farhat Cabezas MD Unavailable [phone] Source Comments In the event this information is protected by the Federal Confidentiality of Alcohol and Drug AbusePatient Records regulations: The Federal rules restrict any use of the information to criminally investigate or prosecute any alcohol or drug abuse patient.[facility] Encounter Details Date Type Department Care Team (Latest Contact Info) Description 08/30/2024 Travel Social History Tobacco Use Types Packs/Day Years [...] is lower risk 2 08/30/2024 Data from: https://www.neighborhoodatlas.medicine.[facility].edu/. Last address used for calculation [address] [facility] 08/30/2024 Comments No Sex and Gender Information [...] Contact Info) Description 09/13/2024 2:00 PM EDT [facility] Diabetic Education [facility] [address] [place] [address] [place] [address] [place] [phone] Type 2 diabetes mellitus with hyperglycemia, with long-term current use of insulin (HCC) [E11.65, Z79.4] 11/20/2024 1:00 PM EDT [facility] Endocrinology [address] [place] [address] Valdez Suarez MD [address] [place] [address] [address] [place], [place] [phone] follow up in 6 months 01/03/2025 10:00 AM [facility] Endocrinology [address] [place] [address] Greg Nina APRN.[employer]OCI[employer] [address] [place] [address] diabetes follow up in 3 months virtually. documented as of this encounter Visit Diagnoses Not on filedocumented in this encounter Care Teams Slot Shift Supervisor Relationship Specialty Start Date End Date Farhat Cabezas MD PCP - General Family Medicine 01/13/11 Farhat Cabezas MD Referring Family Medicine 01/08/22 Farhat Cabezas MD [facility] [place] [address] Referring Family Medicine 07/26/24 documented as of this encounter
--- OUTSIDE RECORDS SUMMARY | 2024-09-13 10:42 | XMS_ITS | Encounter Summary ---
Demographics Address [address] [place] [address] Home Phone Mobile Phone Email Address Preferred Language ENG Marital Status Single Hindu Affiliation Unknown Race White Ethnic Group Not or Lati no Author Organization [facility] Address [address] [place] [address] Care Team Providers Care Artificial Limb Fitter Name Role Phone Farhat Cabezas MD Primary Care Provider [phone] Farhat Cabezas MD Unavailable [phone] Farhat Cabezas MD Unavailable [phone] Source Comments In the event this information is protected by the Federal Confidentiality of Alcohol and Drug AbusePatient Records regulations: The Federal rules restrict any use of the information to criminally investigate or prosecute any alcohol or drug abuse patient.[facility] Encounter Details Date Type Department Care Team (Late st Contact Info) Description 04/16/2023 Patient Msg Edwin Preciado [facility] Physical Therapy [address] [place], [place] [phone] [place] [address] [place], [place] [phone] Appointment Request Social History Tobacco Use Types [...] is lower risk 2 12/21/2022 Data from: https://www.neighborhoodatlas.[facility]/. Last address used for [...] EDT [facility] Diabetic Education [facility] [address] [place] [address] [place] [address] [place] [address] Type 2 diabetes mellitus with hyperglycemia, with long-term current use of insulin ([facility]) [E11.65, Z79.4] 11/20/2024 1:00 PM EDT [facility] Endocrinology [address] [place] [address] Valdez Suarez MD [address] [place] [address] [place] [phone] follow up in 6 months 01/03/2025 10:00 AM EST [facility] Endocrinology [address] [place] [address] Greg Nina APRN.[facility] [address] [place], [place] [phone] diabetes follow up in 3 months virtually. documented as of this encounter Visit Diagnoses Not on filedocumented in this encounter Care Teams Artificial Limb Fitter Relationship Specialty Start Date End Date Farhat Cabezas MD PCP - General Family Medicine 01/13/11 Farhat Cabezas MD Referring Family Medicine 01/08/22 Fahrat Cabezas MD 1265 [place] [address] Referring Family Medicine 07/26/24 documented as of this encounter
--- OUTSIDE RECORDS SUMMARY | 2024-09-13 10:42 | XMS_ITS | Clinical Summary ---
Author Organization [facility] Address [address] [place] [address] Care Team Providers Care Bleach Analyst Name Role Phone Farhat Cabezas MD Primary Care Provider [phone] Allergies Active Allergy Reactions Criticality Noted Date [...] Plan of Treatment Not on file Insurance [facility] Care Teams Bleach Analyst Relationship Specialty Start Date End Date Farhat Cabezas MD PCP - General Family Medicine 07/07/23
--- OUTSIDE RECORDS SUMMARY | 2024-09-13 10:42 | XMS_ITS ---
Author Organization [facility] Address [address] [place] [address] Care Team Providers Care Pattern Perforating Machine Operator Name Role Phone Farhat Cabezas MD Primary Care Provider [phone] Farhat Cabezas MD Unavailable [phone] Farhat Cabezas MD Unavailable [phone] Active Problems * This document contains [...] (09/24/2017): Added automatically from request for surgery [id number] Vomiting of fecal matter with nausea 09/24/2017 Overview (09/24/2017): Added automatically from request for surgery [id number] Postoperative malabsorption 03/04/2017 Pneumonia 12/06/2016 Nausea and [...] (08/31/2016): Added automatically from request for surgery [id number] Hernia, paraesophageal 08/31/201612/01 Overview (08/31/2016): Added automatically from request for surgery [id number] Mitral and aortic valve regurgitation 09/08/2009 10/23/2022 Overview (10/08/2017): Aortic insufficiency EF 60% DR Zuniga -- judged to be non-surgical and mild
--- OUTSIDE RECORDS SUMMARY | 2024-09-13 10:42 | XMS_ITS | Encounter Summary ---
Demographics Address [address] [facility] [place] [address] Home Phone Mobile Phone Email Address Preferred Language ENG Marital Status Single Faith Affiliation Unknown Race White Ethnic Group Not or Lati no Author Organization [facility] Address [address] [place] [address] Care Team Providers Care Record Pressman Name Role Phone Farhat Cabezas MD Primary Care Provider [phone] Farhat Cabezas MD Unavailable [phone] Farhat Cabezas MD Unavailable [phone] Source Comments In the event this information is protected by the Federal Confidentiality of Alcohol and Drug AbusePatient Records regulations: The Federal rules restrict any use of the information to criminally investigate or prosecute any alcohol or drug abuse patient.[facility] Reason for Visit * Reason Comments Refill Request Encounter Details Date Type Department Care Team (Late st Contact Info) Description 08/23/2024 Refill General Surgery [address] [place] [address] Rachel Yi MD [address]87 [place] [address] Refill Request Social History Tobacco [...] is lower risk 7 03/07/2024 Data from: https://www.neighborhoodatlas.medicine.[facility]/ . Last address used for calculation [...] Contact Info) Description 09/13/2024 2:00 PM EDT [facility] Education [facility] [address] [place] [address] [place] [address] [place] [address] Type 2 diabetes mellitus with hyperglycemia, with long-term current use of insulin ([facility]) [E11.65, Z79.4] 11/20/2024 1:00 PM EDT [facility] Endocrinology [address] [place] [address] Valdez Suarez MD [address] [place] [address] [address] [place], [place] [phone] follow up in 6 months 01/03/2025 10:00 AM EST [facility] Endocrinology [address] [place] [phone] Greg Nina APRN.[facility] [address] [place], [place] [phone] diabetes follow up in 3 months virtually. documented as of this encounter Visit Diagnoses Diagnosis Rheumatoid arthritis without rheumatoid factor, multiple sites (HCC) Other specified abnormal immunological findings in serum documented in this encounter Care Teams Record Pressman Relationship Specialty Start Date End Date Farhat Cabezas MD PCP - General Family Medicine 01/13/11 Farhat Cabezas MD Referring Family Medicine 01/08/22 Farhat Cabezas MD [address] [place] [address] Referring Family Medicine 07/26/24 documented as of this encounter
--- OUTSIDE RECORDS SUMMARY | 2024-09-13 10:43 | XMS_ITS | Encounter Summary ---
Demographics Address [address] [place] [address] Home Phone Mobile Phone Email Address faisal Preferred Language ENG Marital Status Single Yazidism Affiliation Unknown Race White Ethnic Group Not or Lati no Author Organization [facility] Address [address] [place] [address] Care Team Providers Care Sales Support Rep Name Role Phone Farhat Cabezas MD Primary Care Provider [phone] Farhat Cabezas MD Unavailable [phone] Farhat Cabezas MD Unavailable [phone] Source Comments In the event this information is protected by the Federal Confidentiality of Alcohol and Drug AbusePatient Records regulations: The Federal rules restrict any use of the information to criminally investigate or prosecute any alcohol or drug abuse patient.[facility] Encounter Details Date Type Department Care Team (Late st Contact Info) Description 11/03/2020 Get Medical Advice Cardiology [address] [place] [address] Sea Collins DO [address] [place], [place] [phone] RE: Visit Follow Up Question Social History [...] N ot on file 01/16/2020 Data from: https://www.neighborhoodatlas.medicine.[facility]/. Last address used for [...] Contact Info) Description 09/13/2024 2:00 PM EDT [facility] Education [facility] [address] [place] [address] [place] [address] [place], [place] [phone] Type 2 diabetes mellitus with hyperglycemia, with long-term current use of insulin (HCC) [E11.65, Z79.4] 11/20/2024 1:00 PM EDT [facility] Endocrinology [address] [place] [phone] Valdez Suarez MD [address] [place] [address] [address] [place], [place] [phone] follow up in 6 months 01/03/2025 10:00 AM EST [facility] Endocrinology [address] [place] [address] Greg Nina APRN.[facility] [address] [place], [place] 0057939 diabetes follow up in 3 months virtually. documented as of this encounter Visit Diagnoses Not on filedocumented in this encounter Care Teams Sales Support Rep Relationship Specialty Start Date End Date Farhat Cabezas MD PCP - General Family Medicine 01/13/11 Farhat Cabezas MD Referring Family Medicine 01/08/22 Farhat Cabezas MD [address] [place] [address] Referring Family Medicine 07/26/24 documented as of this encounter
--- OUTSIDE RECORDS SUMMARY | 2024-09-13 10:43 | XMS_ITS | Encounter Summary ---
Demographics Address [address] [address] Home Phone Mobile Phone Email Address Preferred Language ENG Marital Status Single Adventism Affiliation Unknown Race White Ethnic Group Not or Lati no Author Organization [facility] Address [address] [place] [address] Care Team Providers Care Event Marketing Specialist Name Role Phone Farhat Cabezas MD Primary Care Provider [phone] Farhat Cabezas MD Unavailable [phone] Farhat Cabezas MD Unavailable [phone] Source Comments In the event this information is protected by the Federal Confidentiality of Alcohol and Drug AbusePatient Records regulations: The Federal rules restrict any use of the information to criminally investigate or prosecute any alcohol or drug abuse patient.[facility] Encounter Details Date Type Department Care Team (Late st Contact Info) Description 03/24/2023 Patient Msg Endocrinology [address] [place] [address] [place] [address] [place] [address] Resouces Social History Tobacco Use [...] from: https://www.neighborhoodatlas.medicine.[facility]/. Last address used for calculation [address] [...] PM EDT [facility] Diabetic Education [facility] [address] [place], [place] [phone] [place] [address] [place] [address] Type 2 diabetes mellitus with hyperglycemia, with long-term current use of insulin (HCC) [E11.65, Z79.4] 11/20/2024 1:00 PM EDT [facility] Endocrinology [address] [place] [address] Valdez Suarez MD [address] [place] [address] [address] [place], [place] [phone] follow up in 6 months 01/03/2025 10:00 AM EST [facility] Endocrinology [address] [place] [address] Greg Nina APRN.[facility] [address] [place], [place] [phone] diabetes follow up in 3 months virtually. documented as of this encounter Visit Diagnoses Not on filedocumented in this encounter Care Teams Event Marketing Specialist Relationship Specialty Start Date End Date Farhat Cabezas MD PCP - General Family Medicine 01/13/11 Farhat Cabezas MD Referring Family Medicine 01/08/22 Farhat Cabezas MD [address] [place] [address] Referring Family Medicine 07/26/24 documented as of this encounter
--- OUTSIDE RECORDS SUMMARY | 2024-09-13 10:43 | XMS_ITS | Encounter Summary ---
Demographics Address [address] [facility] [place] [address] Home Phone Mobile Phone Email Address Preferred Language ENG Marital Status Single Christianity Affiliation Unknown Race White Ethnic Group Not or Lati no Author Organization [facility] Address [address] [place] [address] Care Team Providers Care Parking Meter Attendant Name Role Phone Farhat Cabezas MD Primary Care Provider [phone] Farhat Cabezas MD Unavailable [phone] Farhat Cabezas MD Unavailable [phone] Source Comments In the event this information is protected by the Federal Confidentiality of Alcohol and Drug AbusePatient Records regulations: The Federal rules restrict any use of the information to criminally investigate or prosecute any alcohol or drug abuse patient.[facility] Encounter Details Date Type Department Care Team (Late st Contact Info) Description 04/09/2023 Patient Msg Endocrinology [address] [place] [address] Vinicius Márquez, MANAGER OPERATING.MARKET DIRECTOR [address] [place] [address] Appointment Request Social History Tobacco Use Types [...] is lower risk 2 12/21/2022 Data from: https://www.neighborhoodatlas.medicine.[facility]/. Last address used for calculation [address] [...] Contact Info) Description 09/13/2024 2:[address] [facility] Diabetic Education [facility] [address] [place] [address] [place] [address] [place] [address] Type 2 diabetes mellitus with hyperglycemia, with long-term current use of insulin (HCC) [E11.65, Z79.4] 11/20/2024 1:[address] [facility] Endocrinology [address] [place] [address] Valdez Suarez MD [address] [place] [address] [address] [place], [place] [id number] follow up in 6 months 01/03/2025 10:[address] [facility] Endocrinology [address] [place] [address] Greg Nina APRN.[facility] [address] [place], [place] [phone] diabetes follow up in 3 months virtually. documented as of this encounter Visit Diagnoses Not on filedocumented in this encounter Care Teams Parking Meter Attendant Relationship Specialty Start Date End Date Farhat Cabezas MD PCP - General Family Medicine 01/13/11 Farhat Cabezas MD Referring Family Medicine 01/08/22 Farhat Cabezas MD [address]65 [place] [address] Referring Family Medicine 07/26/24 documented as of this encounter
--- OUTSIDE RECORDS SUMMARY | 2024-09-13 10:43 | XMS_ITS | Encounter Summary ---
Demographics Address [address] [place] [address] Home Phone Mobile Phone Email Address Preferred Language ENG Marital Status Single Mandaeism Affiliation Unknown Race White Ethnic Group Not or Lati no Author Organization [facility] Address [facility] [place] [address] Care Team Providers Care Medical Technician Name Role Phone Farhat Cabezas MD Primary Care Provider [phone] Farhat Cabezas MD Unavailable [phone] Farhat Cabezas MD Unavailable [phone] Source Comments In the event this information is protected by the Federal Confidentiality of Alcohol and Drug AbusePatient Records regulations: The Federal rules restrict any use of the information to criminally investigate or prosecute any alcohol or drug abuse patient.[facility] Encounter Details Date Type Department Care Team (Late st Contact Info) Description 01/28/2023 Get Medical Advice Neurology [address] [place] [address] Thaddeus Diggs MD [address] [place] [address] Continuing issues Social History Tobacco [...] is lower risk 2 12/21/2022 Data from: https://www.neighborhoodatlas.medicine.[facility] healthcare.[facility]/. Last address used [...] Contact Info) Description 09/13/2024 2:00 PM EDT [facility] [address] [place], [place] 9[address]7730 Ignacio Garcia, SABIHA [address] [place] [address] Type 2 diabetes mellitus with hyperglycemia, with long-term current use of insulin (HCC) [E11.65, Z79.4] 11/20/2024 1:00 PM EDT [facility] Endocrinology [address] [place] [address] Valdez Suarez MD [address] [place] [address] [address] [place], [place] 9611235 follow up in 6 months 01/03/2025 10:00 AM EST [facility] Endocrinology [address] [place] [address] Greg Nina APRN.[facility] [address] [place], [place] [phone] diabetes follow up in 3 months virtually. documented as of this encounter Visit Diagnoses Not on filedocumented in this encounter Care Teams Medical Technician Relationship Specialty Start Date End Date Farhat Cabezas MD PCP - General Family Medicine 01/13/11 Frahat Cabezas MD Referring Family Medicine 01/08/22 Farhat Cabezas MD [address] [place] [address] Referring Family Medicine 07/26/24 documented as of this encounter
--- OUTSIDE RECORDS SUMMARY | 2024-09-13 10:43 | XMS_ITS | Encounter Summary ---
Demographics Address [address] 02[address] [facility] [place] [address] Home Phone Mobile Phone Email Address Preferred Language ENG Marital Status Single Religion Affiliation Unknown Race White Ethnic Group Not or Lati no Author Organization [facility] Address [facility] [place] [address] Care Team Providers Care Rivet Machine Operator Name Role Phone Farhat Cabezas MD Primary Care Provider [phone] Farhat Cabezas MD Unavailable [phone] Farhat Cabezas MD Unavailable [phone] Source Comments In the event this information is protected by the Federal Confidentiality of Alcohol and Drug AbusePatient Records regulations: The Federal rules restrict any use of the information to criminally investigate or prosecute any alcohol or drug abuse patient.[facility] Encounter Details Date Type Department Care Team (Late st Contact Info) Description 11/27/2022 Patient Msg Neurology [address] [place] [address] Thaddeus Diggs MD [address]506 [place] [address] MRI Social History Tobacco Use [...] lower risk 4 06/11/2022 Data from: https://www.neighborhoodatlas.medicine.[facility]/. Last address used for calculation [address] 06/11/2022 Comments No Sex and Gender [...] Contact Info) Description 09/13/2024 2:00 PM EDT [facility] [address] [place] [address] [place] [address] [place] [id number] Type 2 diabetes mellitus with hyperglycemia, with long-term current use of insulin (HCC) [E11.65, Z79.4] 11/20/2024 1:00 PM EDT [facility] Endocrinology [address] [place] [address] Valdez Suarez MD [address] [place] [address] [address] [place], [place] 4759135 follow up in 6 months 01/03/2025 10:00 AM EST [facility] Endocrinology [address] [place] [address] Greg Nina APRN.[facility] [address] [place], [place] [phone] diabetes follow up in 3 months virtually. documented as of this encounter Visit Diagnoses Not on filedocumented in this encounter Care Teams Rivet Machine Operator Relationship Specialty Start Date End Date Farhat Cabezas MD PCP - General Family Medicine 01/13/11 Farhat Cabezas MD Referring Family Medicine 01/08/22 Farhat Cabezas MD [address] [place] [address] Referring Family Medicine 07/26/24 documented as of this encounter
--- OUTSIDE RECORDS SUMMARY | 2024-09-13 10:43 | XMS_ITS | Encounter Summary ---
Demographics Address [address] 02[address] [facility] [place] [address] Home Phone Mobile Phone Email Address Preferred Language ENG Marital Status Single Episcopalian Affiliation Unknown Race White Ethnic Group Not or Lati no Author Organization [facility] Address [facility] [place] [address] Care Team Providers Care Delivery Route Driver Name Role Phone Farhat Cabezas MD Primary Care Provider [phone] Farhat Cabezas MD Unavailable [phone] Farhat Cabezas MD Unavailable [phone] Source Comments In the event this information is protected by the Federal Confidentiality of Alcohol and Drug AbusePatient Records regulations: The Federal rules restrict any use of the information to criminally investigate or prosecute any alcohol or drug abuse patient.[facility] Encounter Details Date Type Department Care Team (Late st Contact Info) Description 12/01/2022 Patient Msg Neurology 5334 [place] [address] Thaddeus Diggs MD [address] [place] [address] Follow up Social History Tobacco [...] is lower risk 4 06/11/2022 Data from: https://www.neighborhoodatlas.medicine.[facility]/. Last address used for calculation [address] [...] Contact Info) Description 09/13/2024 2:00 PM EDT [facility] [address] [place] [address] [place] [address] [place] [id number] Type 2 diabetes mellitus with hyperglycemia, with long-term current use of insulin (HCC) [E11.65, Z79.4] 11/20/2024 1:00 PM EDT [facility] Endocrinology [address] [place] [address] Valdez Suarez MD [address] [place] [address] [address] [place], [place] 1605735 follow up in 6 months 01/03/2025 10:00 AM EST [facility] Endocrinology [address] [place] [address] Greg Nina APRN.[facility] [address] [place], [place] [phone] diabetes follow up in 3 months virtually. documented as of this encounter Visit Diagnoses Not on filedocumented in this encounter Care Teams Delivery Route Driver Relationship Specialty Start Date End Date Farhat Cabezas MD PCP - General Family Medicine 01/13/11 Fahrat Cabezas MD Referring Family Medicine 01/08/22 Farhat Cabezas MD [address] [place] [address] Referring Family Medicine 07/26/24 documented as of this encounter
--- OUTSIDE RECORDS SUMMARY | 2024-09-13 10:43 | XMS_ITS | Encounter Summary ---
Demographics Address [address] 02[address] [facility] [address] Home Phone Mobile Phone Email Address Preferred Language ENG Marital Status Single Protestant Affiliation Unknown Race White Ethnic Group Not or Lati no Author Organization [facility] Address [address] [place] [address] Care Team Providers Care Stacker And Sorter Operator Name Role Phone Farhat Cabezas MD Primary Care Provider [phone] Farhat Cabezas MD Unavailable [phone] Farhat Cabezas MD Unavailable [phone] Source Comments In the event this [...] for Integrative Med [address] [place] [id number] Provider, Ccf Referral- WELLNESS CONSULT Social History [...] N ot on file 01/16/2020 Data from: https://www.neighborhoodatlas.[facility]/. Last address used for calculation Not [...] 09/13/2024 2:00 PM EDT [facility] [address] [place] [address] [place] [address] [place] [address] Type 2 diabetes mellitus with hyperglycemia, with long-term current use of insulin (HCC) [E11.65, Z79.4] 11/20/2024 1:[address] [facility] Endocrinology [address] [place] [address] Valdez Suarez MD [address] [place] [address] [place], [place] [phone] follow up in 6 months 01/03/2025 10:00 AM EST [facility] Endocrinology [address] [place] [address] Greg Nina APRN.[facility] [address] [place], [place] 4078839 diabetes follow up in 3 months virtually. documented as of this encounter Visit Diagnoses Not on filedocumented in this encounter Care Teams Stacker And Sorter Operator Relationship Specialty Start Date End Date Farhat Cabezas MD PCP - General Family Medicine 01/13/11 Farhat Cabezas MD Referring Family Medicine 01/08/22 Farhat Cabezas MD 12[address] [place] [address] Referring Family Medicine 07/26/24 documented as of this encounter
--- OUTSIDE RECORDS SUMMARY | 2024-09-13 10:43 | XMS_ITS | Encounter Summary ---
Demographics Address [address] [place] [address] Home Phone Mobile Phone Email Address Preferred Language ENG Marital Status Single Samaritan Affiliation Unknown Race White Ethnic Group Not or Lati no Author Organization [facility] Address [address] [place] [address] Care Team Providers Care Equine Internship Name Role Phone Farhat Cabezas MD Primary Care Provider [phone] Farhat Cabezas MD Unavailable [phone] Farhat Cabezas MD Unavailable [phone] Source Comments In the event this information is protected by the Federal Confidentiality of Alcohol and Drug AbusePatient Records regulations: The Federal rules restrict any use of the information to criminally investigate or prosecute any alcohol or drug abuse patient.[facility] Encounter Details Date Type Department Care Team (Late st Contact Info) Description 02/19/2023 Patient Msg Endocrinology [address] [place] [address] [place] [address] [place] [address] Financial Resources Social History Tobacco [...] is lower risk 2 12/21/2022 Data from: https://www.neighborhoodatlas.medicine.[facility]/. Last address used for calculation [...] EDT [facility] Diabetic Education [facility] [address] [place] [address] [place] [address] [place] [address] Type 2 diabetes mellitus with hyperglycemia, with long-term current use of insulin (HCC) [E11.65, Z79.4] 11/20/2024 1:00 PM EDT [facility] Endocrinology [address] [place] [address] Valdez Suarez MD [address] [place] [address] [address] [place], [place] 2620535 follow up in 6 months 01/03/2025 10:00 AM EST [facility] Endocrinology [address] [place] [address] Greg Nina APRN.[facility] [address] [place], [place] 5226739 diabetes follow up in 3 months virtually. documented as of this encounter Visit Diagnoses Not on filedocumented in this encounter Care Teams Equine Internship Relationship Specialty Start Date End Date Farhat Cabezas MD PCP - General Family Medicine 01/13/11 Farhat Cabezas MD Referring Family Medicine 01/08/22 Farhat Cabezas MD 1265 [place] [address] Referring Family Medicine 07/26/24 documented as of this encounter
--- OUTSIDE RECORDS SUMMARY | 2024-09-13 10:43 | XMS_ITS | Encounter Summary ---
Demographics Address [address] [place] [address] Home Phone Mobile Phone Email Address Preferred Language ENG Marital Status Single Sabianist Affiliation Unknown Race White Ethnic Group Not or Lati no Author Organization [facility] Address [address] [place] [address] Care Team Providers Care Engraver Apprentice Decorative Name Role Phone Farhat Cabezas MD Primary Care Provider [phone] Farhat Cabezas MD Unavailable [phone] Farhat Cabezas MD Unavailable [phone] Source Comments In the event this information is protected by the Federal Confidentiality of Alcohol and Drug AbusePatient Records regulations: The Federal rules restrict any use of the information to criminally investigate or prosecute any alcohol or drug abuse patient.[facility] Encounter Details Date Type Department Care Team (Late st Contact Info) Description 09/16/2022 Patient Msg CB/Gynecology [address] [place] [address] Provider, Ccf Reschedule appt. Social History [...] is lower risk 4 06/11/2022 Data from: https://www.neighborhoodatlas.[facility]/. Last address used for calculation [address] 06/11/2022 Comments No Sex and Gender [...] Contact Info) Description 09/13/2024 2:00 PM EDT [facility] Diabetic Education [facility] [address] [place] [address] [place] [address] [place] [address] Type 2 diabetes mellitus with hyperglycemia, with long-term current use of insulin (HCC) [E11.65, Z79.4] 11/20/2024 1:00 PM EDT [facility] Endocrinology [address] [place] [address] Valdez Suarez MD [address] [place] [address] [address] [place], [place] 1645835 follow up in 6 months 01/03/2025 10:00 AM EST [facility] Endocrinology [address] [place] [address] Greg Nina APRN.DISTRIBUTION TECHNICIAN [address] [place], [place] 1641539 diabetes follow up in 3 months virtually. documented as of this encounter Visit Diagnoses Not on filedocumented in this encounter Care Teams Engraver Apprentice Decorative Relationship Specialty Start Date End Date Farhat Cabezas MD PCP - General Family Medicine 01/13/11 Farhat Cabezas MD Referring Family Medicine 01/08/22 [place] [address] [place] [address] Referring Family Medicine 07/26/24 documented as of this encounter
--- OUTSIDE RECORDS SUMMARY | 2024-09-13 10:43 | XMS_ITS | Encounter Summary ---
Demographics Address [address] 02[address] [facility] [place] [address] Home Phone Mobile Phone Email Address Preferred Language ENG Marital Status Single Jew Affiliation Unknown Race White Ethnic Group Not or Lati no Author Organization [facility] Address [address] [place] [address] Care Team Providers Care Keno Terminal Operator Name Role Phone Farhat Cabezas MD Primary Care Provider [phone] Farhat Cabezas MD Unavailable [phone] Farhat Cabezas MD Unavailable [phone] Source Comments In the event this [...] for Integrative Med [address] [place] 1669124 Provider, Ccf Referral- WELLNESS CONSULT Social History [...] N ot on file 01/16/2020 Data from: https://www.neighborhoodatlas.[facility]/. Last address used for calculation [...] Contact Info) Description 09/13/2024 2:00 PM EDT [facility] [address] [place] [address] [place] [address] [place] [phone] Type 2 diabetes mellitus with hyperglycemia, with long-term current use of insulin (HCC) [E11.65, Z79.4] 11/20/2024 1:00 PM EDT [facility] Endocrinology [address] [place] [address] Valdez Suarez MD [address] [place] [address] [address] [place], [place] 5949735 follow up in 6 months 01/03/2025 10:00 AM EST [facility] Endocrinology [address] [place] [address] Greg Nina APRN.[facility] [address] [place], [place] 7822639 diabetes follow up in 3 months virtually. documented as of this encounter Visit Diagnoses Not on filedocumented in this encounter Care Teams Keno Terminal Operator Relationship Specialty Start Date End Date Farhat Cabezas MD PCP - General Family Medicine 01/13/11 Farhat Cabezas MD Referring Family Medicine 01/08/22 Farhat Cabezas MD 1265 [place] [address] Referring Family Medicine 07/26/24 documented as of this encounter
--- OUTSIDE RECORDS SUMMARY | 2024-09-13 10:43 | XMS_ITS | Encounter Summary ---
Demographics Address [address] 02[address] [facility] [place] [address] Home Phone Mobile Phone Email Address Preferred Language ENG Marital Status Single Jewish Affiliation Unknown Race White Ethnic Group Not or Lati no Author Organization [facility] Address [address] [place] [address] Care Team Providers Care Deputy Felony Clerk Name Role Phone Farhat Cabezas MD Primary Care Provider [phone] Farhat Cabezas MD Unavailable [phone] Farhat Cabezas MD Unavailable [phone] Source Comments In the event this information is protected by the Federal Confidentiality of Alcohol and Drug AbusePatient Records regulations: The Federal rules restrict any use of the information to criminally investigate or prosecute any alcohol or drug abuse patient.[facility] Encounter Details Date Type Department Care Team (Late st Contact Info) Description 04/15/2023 Patient Msg Gastroenterology [address] [address] Adilene Morgan APRN.[facility] [address] [place] [address] Social History Tobacco Use Types Packs/Day Years [...] from: https://www.neighborhoodatlas.medicine.[facility]/. Last address used for calculation [address] [...] Contact Info) Description 09/13/2024 2:00 PM EDT [facility] Diabetic Education [facility] [address] [place] [address] [place] [address] [place] [address] Type 2 diabetes mellitus with hyperglycemia, with long-term current use of insulin (HCC) [E11.65, Z79.4] 11/20/2024 1:00 PM EDT [facility] Endocrinology [address] [place] [address] Valdez Suarez MD [address] [place] [address] [address] [place], [place] 0588535 follow up in 6 months 01/03/2025 10:00 AM EST [facility] Endocrinology [address] [place] [address] Greg Nina APRN.[facility] [address] [place], [place] 0366739 diabetes follow up in 3 months virtually. documented as of this encounter Visit Diagnoses Not on filedocumented in this encounter Care Teams Deputy Felony Clerk Relationship Specialty Start Date End Date Farhat Cabezas MD PCP - General Family Medicine 01/13/11 Farhat Cabezas MD Referring Family Medicine 01/08/22 Farhat Cabezas MD 1265 [place] [address] Referring Family Medicine 07/26/24 documented as of this encounter
--- OUTSIDE RECORDS SUMMARY | 2024-09-13 10:43 | XMS_ITS | Encounter Summary ---
Demographics Address [address] [place] [address] Home Phone Mobile Phone Email Address Preferred Language ENG Marital Status Single Pentecostalism Affiliation Unknown Race White Ethnic Group Not or Lati no Author Organization [facility] Address [address] [place] [address] Care Team Providers Care Chute Feeder Name Role Phone Farhat Cabezas MD Primary Care Provider [phone] Farhat Cabezas MD Unavailable [phone] Farhat Cabezas MD Unavailable [phone] Source Comments In the event this information is protected by the Federal Confidentiality of Alcohol and Drug AbusePatient Records regulations: The Federal rules restrict any use of the information to criminally investigate or prosecute any alcohol or drug abuse patient.[facility] Encounter Details Date Type Department Care Team (Late st Contact Info) Description 11/04/2020 Patient [place] [facility] Wellness [address] [place] [phone] Mustapha Branch MD 60[address] [place] [address] Comment Social History Tobacco Use [...] N ot on file 01/16/2020 Data from: https://www.neighborhoodatlas.medicine.[facility]/. Last address used for calculation Not on [...] Contact Info) Description 09/13/2024 2:00 PM EDT [facility] Diabetic Education [facility] [address] [place] [address] [place] [address] [place] [address] Type 2 diabetes mellitus with hyperglycemia, with long-term current use of insulin (HCC) [E11.65, Z79.4] 11/20/2024 1:00 PM EDT [facility] Endocrinology [address] [place] [address] Valdez Suarez MD [address] [place] [address] [address] [place], [place] 3456535 follow up in 6 months 01/03/2025 10:00 AM EST [facility] Endocrinology [address] [place] [address] Greg Nina, MARITZA.EGG BREAKER [address] [place], [place] 7481239 diabetes follow up in 3 months virtually. documented as of this encounter Visit Diagnoses Not on filedocumented in this encounter Care Teams Chute Feeder Relationship Specialty Start Date End Date Farhat Cabezas MD PCP - General Family Medicine 01/13/11 Farhat Cabezas MD Referring Family Medicine 01/08/22 Farhat Cabezas MD [address] [place] [address] Referring Family Medicine 07/26/24 documented as of this encounter
--- OUTSIDE RECORDS SUMMARY | 2024-09-13 10:43 | XMS_ITS | Encounter Summary ---
Demographics Address [address] [place] [address] Home Phone Mobile Phone Email Address Preferred Language ENG Marital Status Single Roman Catholic Affiliation Unknown Race White Ethnic Group Not or Lati no Author Organization [facility] Address [address] [place] [address] Care Team Providers Care Manager Activities Name Role Phone Farhat Cabezas MD Primary Care Provider [phone] Farhat Cabezas MD Unavailable [phone] Farhat Cabezas MD Unavailable [phone] Source Comments In the event this information is protected by the Federal Confidentiality of Alcohol and Drug AbusePatient Records regulations: The Federal rules restrict any use of the information to criminally investigate or prosecute any alcohol or drug abuse patient.[facility] Encounter Details Date Type Department Care Team (Late st Contact Info) Description 04/05/2023 Patient Msg Endocrinology [address] [place] [address] Provider, Ccf endocrine dietitian visit [...] lower risk 2 12/21/2022 Data from: https://www.neighborhoodatlas.[facility]/. Last address used for [...] Contact Info) Description 09/13/2024 2:[address] [facility] Diabetic Education [facility] [address] [place] [address] [place] [address] [place] [address] Type 2 diabetes mellitus with hyperglycemia, with long-term current use of insulin (HCC) [E11.65, Z79.4] 11/20/2024 1:[address] [facility] Endocrinology [address] [place] [address] Valdez Suarez MD [address] [place] [address] [address] [place], [place] [phone] follow up in 6 months 01/03/2025 10:[address] [facility] Endocrinology [address] [place] [address] Greg Nina APRN.BATTERY CHARGER TESTER [address] [place] [address] diabetes follow up in 3 months virtually. documented as of this encounter Visit Diagnoses Not on filedocumented in this encounter Care Teams Manager Activities Relationship Specialty Start Date End Date Farhat Cabezas MD PCP - General Family Medicine 01/13/11 Farhat Cabezas MD Referring Family Medicine 01/08/22 Farhat Cabezas MD [address] [place] [address] Referring Family Medicine 07/26/24 documented as of this encounter
--- OUTSIDE RECORDS SUMMARY | 2024-09-13 10:43 | XMS_ITS | Encounter Summary ---
Demographics Address [address] [place] [address] Home Phone Mobile Phone Email Address Preferred Language ENG Marital Status Single Zoroastrian Affiliation Unknown Race White Ethnic Group Not or Lati no Author Organization [facility] Address [address] [place] [address] Care Team Providers Care Group Manager Name Role Phone Farhat Cabezas MD Primary Care Provider [phone] Farhat Cabezas MD Unavailable [phone] Farhat Cabezas MD Unavailable [phone] Source Comments In the event this information is protected by the Federal Confidentiality of Alcohol and Drug AbusePatient Records regulations: The Federal rules restrict any use of the information to criminally investigate or prosecute any alcohol or drug abuse patient.[facility] Encounter Details Date Type Department Care Team (Late st Contact Info) Description 04/09/2023 Patient Msg Pain Management [address] [place] [address] [place] [address] [facility] [address] [place] [address] Appointment Request Social History Tobacco [...] risk 2 12/21/2022 Data from: https://www.neighborhoodatlas.medicine.[facility]/. Last address used for calculation [...] Description 09/13/2024 2:00 PM EDT [facility] Diabetic Education [facility] [address] [place] [address] [place] [address] [place] [address] Type 2 diabetes mellitus with hyperglycemia, with long-term current use of insulin (HCC) [E11.65, Z79.4] 11/20/2024 1:00 PM EDT [facility] Endocrinology [address] [place] [phone] Valdez Suarez MD [address] [place] [address] [address] [place], [place] [id number] follow up in 6 months 01/03/2025 10:00 AM EST [facility] Endocrinology [address] [place] [address] Greg Nina APRN.[facility] [address] [place], [place] [phone] diabetes follow up in 3 months virtually. documented as of this encounter Visit Diagnoses Not on filedocumented in this encounter Care Teams Group Manager Relationship Specialty Start Date End Date Farhat Cabezas MD PCP - General Family Medicine 01/13/11 Farhat Cabezas MD Referring Family Medicine 01/08/22 Farhat Cabezas MD [address] [place] [address] Referring Family Medicine 07/26/24 documented as of this encounter
--- OUTSIDE RECORDS SUMMARY | 2024-09-13 10:43 | XMS_ITS | Encounter Summary ---
Demographics Address [address] [place] [address] Home Phone Mobile Phone Email Address [employer]al [employer] Preferred Language ENG Marital Status Single Uatsdin Affiliation Unknown Race White Ethnic Group Not or Lati no Author Organization [facility] Address [address] [place] [address] Care Team Providers Care Tripe Cooker Name Role Phone Farhat Cabezas MD Primary Care Provider [phone] Farhat Cabezas MD Unavailable [phone] Farhat Cabezas MD Unavailable [phone] Source Comments In the event this information is protected by the Federal Confidentiality of Alcohol and Drug AbusePatient Records regulations: The Federal rules restrict any use of the information to criminally investigate or prosecute any alcohol or drug abuse patient.[facility] Encounter Details Date Type Department Care Team (Late st Contact Info) Description 03/26/2023 Patient Msg Endocrinology [address] [place] [address] [place] [address] [place] [address] Draft Narrative Social History Tobacco [...] risk 2 12/21/2022 Data from: https://www.neighborhoodatlas.medicine.[facility]/. Last address used for calculation [address] [...] Description 09/13/2024 2:00 PM EDT [facility] Diabetic Education [facility] [address] [place] [address] [place] [address] [place] [address] Type 2 diabetes mellitus with hyperglycemia, with long-term current use of insulin (HCC) [E11.65, Z79.4] 11/20/2024 1:00 PM EDT [facility] Endocrinology [address] [place] [address] Valdez Suarez MD [address] [place] [address] [address] [place], [place] 6470035 follow up in 6 months 01/03/2025 10:00 AM EST [facility] Endocrinology [address] [place] [address] Greg Nina APRN.[facility] [address] [place], [place] [phone] diabetes follow up in 3 months virtually. documented as of this encounter Visit Diagnoses Not on filedocumented in this encounter Care Teams Tripe Cooker Relationship Specialty Start Date End Date Farhat Cabezas MD PCP - General Family Medicine 01/13/11 Farhat Cabezas MD Referring Family Medicine 01/08/22 Farhat Cabezas MD [address] [place] [address] Referring Family Medicine 07/26/24 documented as of this encounter
--- OUTSIDE RECORDS SUMMARY | 2024-09-13 10:43 | XMS_ITS | Encounter Summary ---
Demographics Address [address] [facility] [place] [address] Home Phone Mobile Phone Email Address Preferred Language ENG Marital Status Single Scientology Affiliation Unknown Race White Ethnic Group Not or Lati no Author Organization [facility] Address [address] [place] [address] Care Team Providers Care Rehabilitation Coordinator Name Role Phone Farhat Cabezas MD Primary Care Provider [phone] Farhat Cabezas MD Unavailable [phone] Farhat Cabezas MD Unavailable [phone] Source Comments In the event this information is protected by the Federal Confidentiality of Alcohol and Drug AbusePatient Records regulations: The Federal rules restrict any use of the information to criminally investigate or prosecute any alcohol or drug abuse patient.[facility] Encounter Details Date Type Department Care Team (Late st Contact Info) Description 04/14/2023 Get Medical Advice Endocrinology [address] [place] [address] Vinicius Márquez, AIR TECHNICIAN.ARCHITECTURAL WOOD MODEL MAKER [address] [address] [place] [address] PAIN POST EATING, VOMITTING Social History Tobacco [...] risk 2 12/21/2022 Data from: https://www.neighborhoodatlas.medicine.[facility]/. Last address used for calculation [address] [...] Contact Info) Description 09/13/2024 2:00 PM EDT [facility] [address] [place], [place] [address] Ignacio Garcia, SABIHA [address] [place] [address] Type 2 diabetes mellitus with hyperglycemia, with long-term current use of insulin (HCC) [E11.65, Z79.4] 11/20/2024 1:[address] [facility] Endocrinology [address] [place] [address] Valdez Suarez MD [address] [place] [address] [address] [place], [place] 1446335 follow up in 6 months 01/03/2025 10:00 AM EST [facility] Endocrinology [address] [place] [address] Greg Nina APRN.[facility] [address] [place], [place] [phone] diabetes follow up in 3 months virtually. documented as of this encounter Visit Diagnoses Not on filedocumented in this encounter Care Teams Rehabilitation Coordinator Relationship Specialty Start Date End Date Farhat Cabezas MD PCP - General Family Medicine 01/13/11 Farhat Cabezas MD Referring Family Medicine 01/08/22 Farhat Cabezas MD [address] [place] [address] Referring Family Medicine 07/26/24 documented as of this encounter
--- OUTSIDE RECORDS SUMMARY | 2024-09-13 10:43 | XMS_ITS | Encounter Summary ---
Demographics Address [address] [facility] [place] [address] Home Phone Mobile Phone Email Address Preferred Language ENG Marital Status Single Judaism Affiliation Unknown Race White Ethnic Group Not or Lati no Author Organization [facility] Address [facility] [place] [address] Care Team Providers Care Transmission Supervisor Name Role Phone Farhat Cabezas MD Primary Care Provider [phone] Farhat Cabezas MD Unavailable [phone] Farhat Cabezas MD Unavailable [phone] Source Comments In the event this information is protected by the Federal Confidentiality of Alcohol and Drug AbusePatient Records regulations: The Federal rules restrict any use of the information to criminally investigate or prosecute any alcohol or drug abuse patient.[facility] Encounter Details Date Type Department Care Team (Late st Contact Info) Description 11/17/2022 Get Medical Advice Neurology [address] [place] [address] Thaddeus Diggs MD [address] [place] [address] Neck/ Neuro / symptoms Social [...] is lower risk 4 06/11/2022 Data from: https://www.neighborhoodatlas.medicine.[facility]/. Last address used for calculation [...] Contact Info) Description 09/13/2024 2:00 PM EDT [facility] Education [facility] [address] [place] [address] [place] [address] [place] [address] Type 2 diabetes mellitus with hyperglycemia, with long-term current use of insulin (HCC) [E11.65, Z79.4] 11/20/2024 1:00 PM EDT [facility] Endocrinology [address] [place] [address] Valdez Suarez MD [address] [place] [address] [place], [place] 6020435 follow up in 6 months 01/03/2025 10:00 AM EST [facility] Endocrinology [address] [place] [address] Greg Nina APRN.[facility] [address] [place], [place] [phone] diabetes follow up in 3 months virtually. documented as of this encounter Visit Diagnoses Not on filedocumented in this encounter Care Teams Transmission Supervisor Relationship Specialty Start Date End Date Farhat Cabezas MD PCP - General Family Medicine 01/13/11 Farhat Cabezas MD Referring Family Medicine 01/08/22 Farhat Cabezas MD [address] [place] [address] Referring Family Medicine 07/26/24 documented as of this encounter
--- OUTSIDE RECORDS SUMMARY | 2024-09-13 10:43 | XMS_ITS | Encounter Summary ---
Demographics Address [address] [place] [address] Home Phone Mobile Phone Email Address Preferred Language ENG Marital Status Single Christianity Affiliation Unknown Race White Ethnic Group Not or Lati no Author Organization [facility] Address [address] [place] [address] Care Team Providers Care Shirt Line Operator Name Role Phone Farhat Cabezas MD Primary Care Provider [phone] Farhat Cabezas MD Unavailable [phone] Farhat Cabezas MD Unavailable [phone] Source Comments In the event this information is protected by the Federal Confidentiality of Alcohol and Drug AbusePatient Records regulations: The Federal rules restrict any use of the information to criminally investigate or prosecute any alcohol or drug abuse patient.[facility] Encounter Details Date Type Department Care Team (Late st Contact Info) Description 03/30/2023 Patient Msg Endocrinology [address] [place] [address] [place] [address] [place], [place] [phone] Following up Social History Tobacco Use Types [...] lower risk 2 12/21/2022 Data from: https://www.neighborhoodatlas.medicine.[facility]/. Last address used for calculation [address] [...] Info) Description 09/13/2024 2:00 PM EDT [facility] Diabetic Education [facility] [address] [place] [address] [place] [address] [place] [address] Type 2 diabetes mellitus with hyperglycemia, with long-term current use of insulin (HCC) [E11.65, Z79.4] 11/20/2024 1:00 PM EDT [facility] Endocrinology [address] [place] [address] Valdez Suarez MD [address] [place] [address] [address] [place], [place] 6482735 follow up in 6 months 01/03/2025 10:00 AM EST [facility] Endocrinology [address] [place] [address] Greg Nina APRN.[facility] [address] [place], [place] 3946839 diabetes follow up in 3 months virtually. documented as of this encounter Visit Diagnoses Not on filedocumented in this encounter Care Teams Shirt Line Operator Relationship Specialty Start Date End Date Farhat Cabezas MD PCP - General Family Medicine 01/13/11 Farhat Cabezas MD Referring Family Medicine 01/08/22 Farhat Cabezas MD [address] [place] [address] Referring Family Medicine 07/26/24 documented as of this encounter
--- OUTSIDE RECORDS SUMMARY | 2024-09-13 10:43 | XMS_ITS | Encounter Summary ---
Demographics Address [address] [place] [address] Home Phone Mobile Phone Email Address Preferred Language ENG Marital Status Single Advent Affiliation Unknown Race White Ethnic Group Not or Lati no Author Organization [facility] Address [address] [place] [address] Care Team Providers Care Certified Alcohol Drug Counselor Name Role Phone Farhat Cabezas MD Primary Care Provider [phone] Farhat Cabezas MD Unavailable [phone] Farhat Cabezas MD Unavailable [phone] Source Comments In the event this information is protected by the Federal Confidentiality of Alcohol and Drug AbusePatient Records regulations: The Federal rules restrict any use of the information to criminally investigate or prosecute any alcohol or drug abuse patient.[facility] Encounter Details Date Type Department Care Team (Late st Contact Info) Description 02/05/2023 Patient Msg Endocrinology [address] [place] [address] [place] [address] [place], [place] [phone] Resources Social History Tobacco Use Types Packs/Day [...] is lower risk 2 12/21/2022 Data from: https://www.neighborhoodatlas.medicine.[facility]/. Last address used for calculation [address] [...] Contact Info) Description 09/13/2024 2:00 PM EDT [facility] Diabetic Education [facility] [address] [place] [address] [place] [address] [place] [address] Type 2 diabetes mellitus with hyperglycemia, with long-term current use of insulin (HCC) [E11.65, Z79.4] 11/20/2024 1:00 PM EDT [facility] Endocrinology [address] [place] [address] Valdez Suarez MD [address] [place] [address] [address] [place], [place] 0353735 follow up in 6 months 01/03/2025 10:00 AM EST [facility] Endocrinology [address] [place] [address] Greg Nina APRN.[facility] [address] [place], [place] [phone] diabetes follow up in 3 months virtually. documented as of this encounter Visit Diagnoses Not on filedocumented in this encounter Care Teams Certified Alcohol Drug Counselor Relationship Specialty Start Date End Date Farhat Cabezas MD PCP - General Family Medicine 01/13/11 Farhat Cabezas MD Referring Family Medicine 01/08/22 Farhat Cabezas MD [address] [place] [address] Referring Family Medicine 07/26/24 documented as of this encounter
--- OUTSIDE RECORDS SUMMARY | 2024-09-13 10:43 | XMS_ITS | Encounter Summary ---
Demographics Address [address] [place] [address] Home Phone Mobile Phone Email Address Preferred Language ENG Marital Status Single Judaism Affiliation Unknown Race White Ethnic Group Not or Lati no Author Organization [facility] Address [address] [place] [address] Care Team Providers Care Pottery Decoration Designer Name Role Phone Farhat Cabezas MD Primary Care Provider [phone] Farhat Cabezas MD Unavailable [phone] Farhat Cabezas MD Unavailable [phone] Source Comments In the event this information is protected by the Federal Confidentiality of Alcohol and Drug AbusePatient Records regulations: The Federal rules restrict any use of the information to criminally investigate or prosecute any alcohol or drug abuse patient.[facility] Encounter Details Date Type Department Care Team (Late st Contact Info) Description 04/21/2023 Patient Msg Endocrinology [address] [place] [address] [place] [address] [place] [address] Report Next Steps Social History [...] lower risk 2 12/21/2022 Data from: https://www.neighborhoodatlas.medicine.[facility]/. Last address used for calculation [address] [...] Contact Info) Description 09/13/2024 2:00 PM EDT [facility] Diabetic Education [facility] [address] [place], [place] 30[address] [place] [address] [place] [address] Type 2 diabetes mellitus with hyperglycemia, with long-term current use of insulin (HCC) [E11.65, Z79.4] 11/20/2024 1:00 PM EDT [facility] Endocrinology [address] [place] [address] Valdez Suarez MD [address] [place] [address] [place], [place] 0396835 follow up in 6 months 01/03/2025 10:00 AM EST [facility] Endocrinology [address] [place] [address] Greg Nina APRN.[facility] [address] [place], [place] [phone] diabetes follow up in 3 months virtually. documented as of this encounter Visit Diagnoses Not on filedocumented in this encounter Care Teams Pottery Decoration Designer Relationship Specialty Start Date End Date Farhat Cabezas MD PCP - General Family Medicine 01/13/11 Farhat Cabezas MD Referring Family Medicine 01/08/22 Farhat Cabezas MD [address] [place] [address] Referring Family Medicine 07/26/24 documented as of this encounter
--- OUTSIDE RECORDS SUMMARY | 2024-09-13 10:43 | XMS_ITS | Encounter Summary ---
Demographics Address [address] [facility] [place] [address] Home Phone Mobile Phone Email Address Preferred Language ENG Marital Status Single Tenriism Affiliation Unknown Race White Ethnic Group Not or Lati no Author Organization [facility] Address [address] [place] [address] Care Team Providers Care Logistics Director Name Role Phone Farhat Cabezas MD Primary Care Provider [phone] Farhat Cabezas MD Unavailable Farhat Cabezas MD Unavailable [phone] Source Comments In the event this information is protected by the Federal Confidentiality of Alcohol and Drug AbusePatient Records regulations: The Federal rules restrict any use of the information to criminally investigate or prosecute any alcohol or drug abuse patient.[facility] Encounter Details Date Type Department Care Team (Late st Contact Info) Description 10/23/2020 Patient Msg Pre Anesthesia [address] [place], [place] [phone] Dunia Pickett PA-C [address] [place], [place] [phone] Preop Instructions Social History Tobacco Use Types [...] 01/16/2020 Data from: https://www.neighborhoodatlas.medicine.[facility]/. Last address used for calculation [...] Contact Info) Description 09/13/2024 2:00 PM EDT [facility] Education [facility] [address] [place] [address] [place] [address] [place], [place] 3344507 Type 2 diabetes mellitus with hyperglycemia, with long-term current use of insulin (HCC) [E11.65, Z79.4] 11/20/2024 1:00 PM EDT [facility] Endocrinology [address] [place] [address] Valdez Suarez MD [address] [place] [address] [address] [place], [place] [phone] follow up in 6 months 01/03/2025 10:00 AM EST [facility] Endocrinology [address] [place] [address] Greg Nina APRN.[facility] [address] [place], [place] 5377739 diabetes follow up in 3 months virtually. documented as of this encounter Visit Diagnoses Not on filedocumented in this encounter Care Teams Logistics Director Relationship Specialty Start Date End Date Farhat Cabezas MD PCP - General Family Medicine 01/13/11 Farhat Cabezas MD Referring Family Medicine 01/08/22 Farhat Cabezas MD [address] [place] [address] Referring Family Medicine 07/26/24 documented as of this encounter
--- OUTSIDE RECORDS SUMMARY | 2024-09-13 10:43 | XMS_ITS | Encounter Summary ---
Demographics Address [address] [place] [address] Home Phone Mobile Phone Email Address Preferred Language ENG Marital Status Single Christianity Affiliation Unknown Race White Ethnic Group Not or Lati no Author Organization [facility] Address [address] [place] [address] Care Team Providers Care Slider Assembler Name Role Phone Farhat Cabezas MD Primary Care Provider [phone] Farhat Cabezas MD Unavailable [phone] Farhat Cabezas MD Unavailable [phone] Source Comments In the event this information is protected by the Federal Confidentiality of Alcohol and Drug AbusePatient Records regulations: The Federal rules restrict any use of the information to criminally investigate or prosecute any alcohol or drug abuse patient.[facility] Encounter Details Date Type Department Care Team (Late st Contact Info) Description 03/16/2023 Patient Msg Endocrinology [address] [place] [address] [place] [address] [place] [address] Following up Social History Tobacco Use Types Packs/Day Years Used Date Smoking Tobacco: Never Smokeless Tobacco: Never Alcohol Use Standard Drinks/Week Comments Yes 0 (1 standard drink = 0.6 oz pur e alcohol) Social PHQ-2 Answer Date Recorded PHQ-2 score 2 01/08/2022 Area Deprivation Index Answer Date Ord rded National Score (1-100), lower number is lower ri sk 44 12/21/2022 State Score (1-10), lower number is lower risk 2 12/21/2022 Data from: https://www.neighborhoodatlas.medicine.[facility]/. Last address used for calculation [address] [...] Description 09/13/2024 2:00 PM EDT [facility] Diabetic Education [facility] [address] [place] [address] [place] [address] [place] [address] Type 2 diabetes mellitus with hyperglycemia, with long-term current use of insulin (HCC) [E11.65, Z79.4] 11/20/2024 1:00 PM EDT [facility] Endocrinology [address] [place] [address] Valdez Suarez MD [address] [place] [address] [address] [place], [place] [phone] follow up in 6 months 01/03/2025 10:00 AM EST [facility] Endocrinology [address] [place] [address] Greg Nina APRN.[facility] [address] [place], [place] [phone] diabetes follow up in 3 months virtually. documented as of this encounter Visit Diagnoses Not on filedocumented in this encounter Care Teams Slider Assembler Relationship Specialty Start Date End Date Farhat Cabezas MD PCP - General Family Medicine 01/13/11 Farhat Cabezas MD Referring Family Medicine 01/08/22 Farhat Cabezas MD [address] [place] [address] Referring Family Medicine 07/26/24 documented as of this encounter
--- OUTSIDE RECORDS SUMMARY | 2024-09-13 10:43 | XMS_ITS | Encounter Summary ---
Demographics Address [address] [facility] [place] [address] Home Phone Mobile Phone Email Address Preferred Language ENG Marital Status Single Roman Catholic Affiliation Unknown Race White Ethnic Group Not or Lati no Author Organization [facility] Address [address] [place] [address] Care Team Providers Care Tradeshow Worker Name Role Phone Farhat Cabezas MD Primary Care Provider [phone] Farhat Cabezas MD Unavailable [phone] Farhat Cabezas MD Unavailable [phone] Source Comments In the event this information is protected by the Federal Confidentiality of Alcohol and Drug AbusePatient Records regulations: The Federal rules restrict any use of the information to criminally investigate or prosecute any alcohol or drug abuse patient.[facility] Encounter Details Date Type Department Care Team (Late st Contact Info) Description 04/14/2023 Get Medical Advice Gastroenterology [address] [address] Adilene Morgan APRN.[facility] [address] [place] [address] ABD PAIN, VOMITTING / OBSTRUCTION? [...] risk 2 12/21/2022 Data from: https://www.neighborhoodatlas.medicine.[facility]/. Last address used for calculation [...] PM EDT [facility] Diabetic Education [facility] [address] [place] [address] [place] [address] [place] [address] Type 2 diabetes mellitus with hyperglycemia, with long-term current use of insulin (HCC) [E11.65, Z79.4] 11/20/2024 1:00 PM EDT [facility] Endocrinology [address] [place] [address] Valdez Suarez MD [address] [place] [address] [address] [place], [place] [phone] follow up in 6 months 01/03/2025 10:00 AM [facility] Endocrinology [address] [place] [address] Greg Nina APRN.[facility] [address] [place] [address] diabetes follow up in 3 months virtually. documented as of this encounter Visit Diagnoses Not on filedocumented in this encounter Care Teams Tradeshow Worker Relationship Specialty Start Date End Date Farhat Cabezas MD PCP - General Family Medicine 01/13/11 Farhat Cabezas MD Referring Family Medicine 01/08/22 Farhat Cabezas MD [address] [place] [address] Referring Family Medicine 07/26/24 documented as of this encounter
--- OUTSIDE RECORDS SUMMARY | 2024-09-13 10:43 | XMS_ITS | Encounter Summary ---
Demographics Address [address] [facility] [place] [address] Home Phone Mobile Phone Email Address Preferred Language ENG Marital Status Single Yazidi Affiliation Unknown Race White Ethnic Group Not or Lati no Author Organization [facility] Address [facility] [place] [address] Care Team Providers Care Certified Appliance Service Technician Name Role Phone Farhat Cabezas MD Primary Care Provider [phone] Farhat Cabezas MD Unavailable [phone] Farhat Cabezas MD Unavailable Source Comments In the event this information is protected by the Federal Confidentiality of Alcohol and Drug AbusePatient Records regulations: The Federal rules restrict any use of the information to criminally investigate or prosecute any alcohol or drug abuse patient.[facility] Encounter Details Date Type Department Care Team (Late st Contact Info) Description 02/08/2023 Get Medical Advice Neurology [address] [place] [address] Thaddeus Diggs MD [address] [place] [address] Desperate for answer Social History [...] is lower risk 2 12/21/2022 Data from: https://www.neighborhoodatlas.medicine.[facility]/. Last address used for calculation [address] [...] Contact Info) Description 09/13/2024 2:00 PM EDT [facility] Education [facility] [address] [place] [address] Ignacio Garcia, SABIHA [address] [place] [address] Type 2 diabetes mellitus with hyperglycemia, with long-term current use of insulin (HCC) [E11.65, Z79.4] 11/20/2024 1:00 PM EDT [facility] Endocrinology [address] [place] [address] Valdez Suarez MD [address] [place] [address] [address] [place], [place] [phone] follow up in 6 months 01/03/2025 10:00 AM EST [facility] Endocrinology [address] [place] [address] Greg Nina APRN.[facility] [address] [place], [place] [phone] diabetes follow up in 3 months virtually. documented as of this encounter Visit Diagnoses Not on filedocumented in this encounter Care Teams Certified Appliance Service Technician Relationship Specialty Start Date End Date Farhat Cabezas MD PCP - General Family Medicine 01/13/11 Farhat Cabezas MD Referring Family Medicine 01/08/22 Farhat Cabezas MD [address] [place] [address] Referring Family Medicine 07/26/24 documented as of this encounter
--- OUTSIDE RECORDS SUMMARY | 2024-09-13 10:43 | XMS_ITS | Encounter Summary ---
Demographics Address [address] [place] [address] Home Phone Mobile Phone Email Address Preferred Language ENG Marital Status Single Lutheran Affiliation Unknown Race White Ethnic Group Not or Lati no Author Organization [facility] Address [address] [place] [address] Care Team Providers Care Supervisor Net Making Name Role Phone Farhat Cabezas MD Primary Care Provider [phone] Farhat Cabezas MD Unavailable [phone] Farhat Cabezas MD Unavailable [phone] Source Comments In the event this information is protected by the Federal Confidentiality of Alcohol and Drug AbusePatient Records regulations: The Federal rules restrict any use of the information to criminally investigate or prosecute any alcohol or drug abuse patient.[facility] Encounter Details Date Type Department Care Team (Late st Contact Info) Description 03/08/2023 Patient Msg Endocrinology [address] [place] [address] [place] [address] [place], [place] [phone] Checking-in Social History Tobacco Use Types Packs/Day [...] is lower risk 2 12/21/2022 Data from: https://www.neighborhoodatlas.medicine.[facility]/. Last address used for calculation [address] [...] Description 09/13/2024 2:00 PM EDT [facility] Diabetic Education [facility] [address] [place], [place] [address] [place] [address] [place] [address] Type 2 diabetes mellitus with hyperglycemia, with long-term current use of insulin (HCC) [E11.65, Z79.4] 11/20/2024 1:00 PM EDT [facility] Endocrinology [address] [place] [address] Valdez Suarez MD [address] [place] [address] [address] [place], [place] [phone] follow up in 6 months 01/03/2025 10:00 AM EST [facility] Endocrinology [address] [place] [address] Greg Nina APRN.[facility] [address] [place], [place] [phone] diabetes follow up in 3 months virtually. documented as of this encounter Visit Diagnoses Not on filedocumented in this encounter Care Teams Supervisor Net Making Relationship Specialty Start Date End Date Farhat Cabezas MD PCP - General Family Medicine 01/13/11 Farhat Cabezas MD Referring Family Medicine 01/08/22 Farhat Cabezas MD [address] [place] [address] Referring Family Medicine 07/26/24 documented as of this encounter
--- OUTSIDE RECORDS SUMMARY | 2024-09-13 10:43 | XMS_ITS | Encounter Summary ---
Demographics Address [address] [place] [address] Home Phone Mobile Phone Email Address Preferred Language ENG Marital Status Single Roman Catholic Affiliation Unknown Race White Ethnic Group Not or Lati no Author Organization [facility] Address [address] [place] [address] Care Team Providers Care Rivet Catcher Name Role Phone Farhat Cabezas MD Primary Care Provider [phone] Farhat Cabezas MD Unavailable [phone] Farhat Cabezas MD Unavailable [phone] Source Comments In the event this information is protected by the Federal Confidentiality of Alcohol and Drug AbusePatient Records regulations: The Federal rules restrict any use of the information to criminally investigate or prosecute any alcohol or drug abuse patient.[facility] Encounter Details Date Type Department Care Team (Late st Contact Info) Description 04/19/2023 Patient Msg Orthopaedics [address] [place], [place] [phone] Provider, Ccpiero Saba Appointment Social History Tobacco [...] risk 2 12/21/2022 Data from: https://www.neighborhoodatlas.[facility]/. Last address used for calculation [address] [facility] W 12/21/2022 Comments No Sex and Gender [...] Info) Description 09/13/2024 2:00 PM EDT [facility] Diabetic Education [facility] [address] [place] [address] Ignacio Garcia, SABIHA [address] [place] [address] Type 2 diabetes mellitus with hyperglycemia, with long-term current use of insulin (HCC) [E11.65, Z79.4] 11/20/2024 1:00 PM EDT [facility] Endocrinology [address] [place] [address] Valdez Suarez MD [address] [place] [address] [address] [place], [place] 0573235 follow up in 6 months 01/03/2025 10:00 AM EST [facility] Endocrinology [address] [place] [address] Greg Nina APRN.SERVER SUPPORT TECHNICIAN [address] [place] [address] diabetes follow up in 3 months virtually. documented as of this encounter Visit Diagnoses Not on filedocumented in this encounter Care Teams Rivet Catcher Relationship Specialty Start Date End Date Farhat Cabezas MD PCP - General Family Medicine 01/13/11 Farhat Cabezas MD Referring Family Medicine 01/08/22 Farhat Cabezas MD [facility] [place] [address] Referring Family Medicine 07/26/24 documented as of this encounter
--- OUTSIDE RECORDS SUMMARY | 2024-09-13 10:43 | XMS_ITS | Encounter Summary ---
Demographics Address [address] [place] [address] Home Phone Mobile Phone Email Address Preferred Language ENG Marital Status Single Denominational Affiliation Unknown Race White Ethnic Group Not or Lati no Author Organization [facility] Address [address] [place] [address] Care Team Providers Care Blacksmith Farm Name Role Phone Farhat Cabezas MD Primary Care Provider [phone] Farhat Cabezas MD Unavailable [phone] Farhat Cabezas MD Unavailable [phone] Source Comments In the event this information is protected by the Federal Confidentiality of Alcohol and Drug AbusePatient Records regulations: The Federal rules restrict any use of the information to criminally investigate or prosecute any alcohol or drug abuse patient.[facility] Encounter Details Date Type Department Care Team (Late st Contact Info) Description 02/12/2023 Patient Msg Endocrinology [address] [place] [address] [place] [address] [place] [address] Crisis [facility] Social History Tobacco [...] is lower risk 2 12/21/2022 Data from: https://www.neighborhoodatlas.medicine.[facility]/. Last address used for calculation [...] PM EDT [facility] Diabetic Education [facility] [address] [place], [place] [address] [place] [address] [place] [address] Type 2 diabetes mellitus with hyperglycemia, with long-term current use of insulin (HCC) [E11.65, Z79.4] 11/20/2024 1:[address] [facility] Endocrinology [address] [place] [address] Valdez Suarez MD [address] [place] [address] [address] [place], [place] 9059435 follow up in 6 months 01/03/2025 10:[address] [facility] Endocrinology [address] [place] [address] Greg Nina APRN.[facility] [address] [place], [place] 3677939 diabetes follow up in 3 months virtually. documented as of this encounter Visit Diagnoses Not on filedocumented in this encounter Care Teams Blacksmith Farm Relationship Specialty Start Date End Date Farhat Cabezas MD PCP - General Family Medicine 01/13/11 Farhat Cabezas MD Referring Family Medicine 01/08/22 Farhat Cabezas MD [address] [place] [address] Referring Family Medicine 07/26/24 documented as of this encounter
--- OUTSIDE RECORDS SUMMARY | 2024-09-13 10:44 | XMS_ITS | Encounter Summary ---
Demographics Address [address] [place] [address] Home Phone Mobile Phone Email Address Preferred Language ENG Marital Status Single Druze Affiliation Unknown Race White Ethnic Group Not or Lati no Author Organization [facility] Address [address] [place] [address] Care Team Providers Care Mechanical Engineering Professor Name Role Phone Farhat Cabezas MD Primary Care Provider [phone] Farhat Cabezas MD Unavailable [phone] Farhat Cabezas MD Unavailable [phone] Source Comments In the event this information is protected by the Federal Confidentiality of Alcohol and Drug AbusePatient Records regulations: The Federal rules restrict any use of the information to criminally investigate or prosecute any alcohol or drug abuse patient.[facility] Encounter Details Date Type Department Care Team (Late st Contact Info) Description 09/22/2020 Get Medical Advice [facility] REJ [address] [place], [place] 3875711 Rachel Yi MD [address]507 [place] [address] RE: Visit Follow Up Question [...] 01/16/2020 Data from: https://www.neighborhoodatlas.medicine.[facility]/. Last address used for [...] PM oMna Dubose (Rn) (Hist), RN * Because of [...] Contact Info) Description 09/13/2024 2:00 PM EDT [facility] [address] [place] [address] [place] [address] [place] [address] Type 2 diabetes mellitus with hyperglycemia, with long-term current use of insulin (HCC) [E11.65, Z79.4] 11/20/2024 1:00 PM EDT [facility] Endocrinology [address] [place] [address] Valdez Suarez MD [address] [facility] [address] [place], [place] 4898035 follow up in 6 months 01/03/2025 10:00 AM EST [facility] Endocrinology [address] [place] [address] Greg Nina APRN.[employer] [address] [place], [place] 7947539 diabetes follow up in 3 months virtually. documented as of this encounter Visit Diagnoses Not on filedocumented in this encounter Care Teams Mechanical Engineering Professor Relationship Specialty Start Date End Date Farhat Cabezas MD PCP - General Family Medicine 01/13/11 Farhat Cabezas MD Referring Family Medicine 01/08/22 Farhat Cabezas MD [address] [place] [address] Referring Family Medicine 07/26/24 documented as of this encounter
--- OUTSIDE RECORDS SUMMARY | 2024-09-13 10:44 | XMS_ITS | Encounter Summary ---
Demographics Address [address] [facility] [place] [address] Home Phone Mobile Phone Email Address Preferred Language ENG Marital Status Single Samaritan Affiliation Unknown Race White Ethnic Group Not or Lati no Author Organization [facility] Address [address] [place] [address] Care Team Providers Care General Manager In Training Name Role Phone Farhat Cabezas MD Primary Care Provider [phone] Farhat Cabezas MD Unavailable [phone] Farhat Cabezas MD Unavailable [phone] Source Comments In the event this information is protected by the Federal Confidentiality of Alcohol and Drug AbusePatient Records regulations: The Federal rules restrict any use of the information to criminally investigate or prosecute any alcohol or drug abuse patient.[facility] Encounter Details Date Type Department Care Team (Late st Contact Info) Description 01/22/2022 Patient Msg Endocrinology [address] [place] [address] Valdez Suarez MD [address] [place] [address] [place] [address] labs and appointment Social History [...] N ot on file 07/19/2021 Data from: https://www.neighborhoodatlas.medicine.[facility]/. Last address used for calculation [address] [...] DbuoseRn) (Hist), RN documented in this encounter Miscellaneous [...] Description 09/13/2024 2:00 PM EDT [facility] Diabetic Education [facility] [address] [place] [address] [place] [address] [place], [place] 9510[address] Type 2 diabetes mellitus with hyperglycemia, with long-term current use of insulin (HCC) [E11.65, Z79.4] 11/20/2024 1:00 PM EDT [facility] Endocrinology [address] [place] [address] Valdez Suarez MD [address] [place] [address] [place] [address] follow up in 6 months 01/03/2025 10:00 AM EST [facility] Endocrinology [address] [place] [address] Greg Nina APRN.FLOORING MACHINE OPERATOR [address] [place] [address] diabetes follow up in 3 months virtually. documented as of this encounter Visit Diagnoses Not on filedocumented in this encounter Care Teams General Manager In Training Relationship Specialty Start Date End Date Farhat Cabezas MD PCP - General Family Medicine 01/13/11 Farhat Cabezas MD Referring Family Medicine 01/08/22 Farhat Cabezas MD [address]65 [place] [address] Referring Family Medicine 07/26/24 documented as of this encounter
--- OUTSIDE RECORDS SUMMARY | 2024-09-13 10:44 | XMS_ITS | Encounter Summary ---
Author Organization [facility] Address [address] [place] [address] Care Team Providers Care Large Animal Veterinarian Name Role Phone Farhat Cabezas MD Primary Care Provider [phone] Farhat Cabezas MD Unavailable [phone] Farhat Cabezas MD Unavailable [phone] Source Comments In the event this [...] 10/12/2019 Patient Msg General Surgery BMI PSYL [address] [place], [place] [phone] Graciela Hoyt, PhD [address] [place] [phone] OCD specialists Social History Tobacco Use Types [...] Contact Info) Description 09/13/2024 2:00 PM EDT [facility] Diabetic Education [facility] [address] [place] [address] [place] [address] [place] [address] Type 2 diabetes mellitus with hyperglycemia, with long-term current use of insulin (HCC) [E11.65, Z79.4] 11/20/2024 1:00 PM EDT [facility] Endocrinology [address] [place] [address] Valdez Suarez MD [address] [place] [address] [place], [place] 0935635 follow up in 6 months 01/03/2025 10:00 AM EST [facility] Endocrinology [address] [place] [address] Greg Nina APRN.[facility] [address] [place], [place] 5743739 diabetes follow up in 3 months virtually. documented as of this encounter Visit Diagnoses Not on filedocumented in this encounter Care Teams Large Animal Veterinarian Relationship Specialty Start Date End Date Farhat Cabezas MD PCP - General Family Medicine 01/13/11 Farhat Cabezas MD Referring Family Medicine 01/08/22 Farhat Cabezas MD [address] [place] [address] Referring Family Medicine 07/26/24 documented as of this encounter
--- OUTSIDE RECORDS SUMMARY | 2024-09-13 10:44 | XMS_ITS | Encounter Summary ---
Author Organization [facility] Address [address] [place] [address] Care Team Providers Care Phlebotomy Director Name Role Phone Farhat Cabezas MD Primary Care Provider [phone] Farhat Cabezas MD Unavailable [phone] Farhat Cabezas MD Unavailable [phone] Source Comments In the event this information is protected by the Federal Confidentiality of Alcohol and Drug AbusePatient Records regulations: The Federal rules restrict any use of the information to criminally investigate or prosecute any alcohol or drug abuse patient.[facility] Encounter Details Date Type Department Care Team (Late st Contact Info) Description 10/05/2019 Patient Msg Family Medicine [address] [place], [place] [phone] Provider, [facility] Appointments Requested Social History Tobacco [...] Description 09/13/2024 2:00 PM EDT [facility] Diabetic Education [facility] [address] [place] [address] [place] [address] [place], [place] [phone] Type 2 diabetes mellitus with hyperglycemia, with long-term current use of insulin (HCC) [E11.65, Z79.4] 11/20/2024 1:00 PM EDT [facility] Endocrinology [address] [place] [address] Valdez Suarez MD [address] [place] [address] [place] [address] follow up in 6 months 01/03/2025 10:00 AM [facility] Endocrinology [address] [place] [address] Greg Nina APRN.RESIDENTIAL CASE MANAGER [address] [place] [address] diabetes follow up in 3 months virtually. documented as of this encounter Visit Diagnoses Not on filedocumented in this encounter Care Teams Phlebotomy Director Relationship Specialty Start Date End Date Farhat Cabezas MD PCP - General Family Medicine 01/13/11 Farhat Cabezas MD Referring Family Medicine 01/08/22 Farhat Cabezas MD [address] [place] [address] Referring Family Medicine 07/26/24 documented as of this encounter
--- OUTSIDE RECORDS SUMMARY | 2024-09-13 10:44 | XMS_ITS | Encounter Summary ---
Demographics Address [address] [facility] [place] [address] Home Phone Mobile Phone Email Address faisal .[employer] Preferred Language ENG Marital Status Single Worship Affiliation Unknown Race White Ethnic Group Not or Lati no Author Organization [facility] Address [address] [place] [address] Care Team Providers Care Structural Design Engineer Name Role Phone Farhat Cabezas MD Primary Care Provider [phone] Farhat Cabezas MD Unavailable [phone] Farhat Cabezas MD Unavailable [phone] Source Comments In the event this information is protected by the Federal Confidentiality of Alcohol and Drug AbusePatient Records regulations: The Federal rules restrict any use of the information to criminally investigate or prosecute any alcohol or drug abuse patient.[facility] Encounter Details Date Type Department Care Team (Late st Contact Info) Description 09/28/2021 Patient Msg Sleep Psychology [address] [place] [address] Mar[place], PhD [address] [facility] [address] [place] [phone] behavioral sleep medicine visit Tues Social History [...] on file 07/19/2021 Data from: https://www.neighborhoodatlas.medicine.[facility]/. Last address used for [...] Contact Info) Description 09/13/2024 2:00 PM EDT [facility] Diabetic Education [facility] [address] [place], [place] [phone] [place] [address] [place] [address] Type 2 diabetes mellitus with hyperglycemia, with long-term current use of insulin (HCC) [E11.65, Z79.4] 11/20/2024 1:00 PM EDT [facility] Endocrinology [address] [place] [phone] Valdez Suarez MD [address] [place] [address] [address] [place], [place] [phone] follow up in 6 months 01/03/2025 10:00 AM EST [facility] Endocrinology [address] [place] [address] Greg Nina, MARITZA.HATCHERY ATTENDANT [address] [place] [address] diabetes follow up in 3 months virtually. documented as of this encounter Visit Diagnoses Not on filedocumented in this encounter Care Teams Structural Design Engineer Relationship Specialty Start Date End Date Farhat Cabezas MD PCP - General Family Medicine 01/13/11 Farhat Cabezas MD Referring Family Medicine 01/08/22 Farhat Cabezas MD [address] [place] [address] Referring Family Medicine 07/26/24 documented as of this encounter
--- OUTSIDE RECORDS SUMMARY | 2024-09-13 10:44 | XMS_ITS | Encounter Summary ---
Author Organization [facility] Address [address] [place] [address] Care Team Providers Care Pain Management Specialist Name Role Phone Farhat Cabezas MD Primary Care Provider [phone] Farhat Cabezas MD Unavailable [phone] Farhat Cabezas MD Unavailable [phone] Source Comments In the event this information is protected by the Federal Confidentiality of Alcohol and Drug AbusePatient Records regulations: The Federal rules restrict any use of the information to criminally investigate or prosecute any alcohol or drug abuse patient.[facility] Encounter Details Date Type Department Care Team (Late st Contact Info) Description 03/14/2020 Patient Msg Family Medicine [address] [place], [place] [phone] Provider, Ccf Appointment Request Social History Tobacco [...] N ot on file 01/16/2020 Data from: https://www.neighborhoodatlas.[facility]/. Last address used for [...] Description 09/13/2024 2:00 PM EDT [facility] Diabetic Education [facility] [address] [place] [address] [place] [address] [place] [address] Type 2 diabetes mellitus with hyperglycemia, with long-term current use of insulin (HCC) [E11.65, Z79.4] 11/20/2024 1:00 PM EDT [facility] Endocrinology [address] [place] [address] Valdez Suarez MD [address] [place] [address] [address] [place], [place] [phone] follow up in 6 months 01/03/2025 10:00 AM EST [facility] Endocrinology [address] [place] [phone] Greg Nina APRN.MANAGER LONG TERM CARE [address] [place], [place] [phone] diabetes follow up in 3 months virtually. documented as of this encounter Visit Diagnoses Not on filedocumented in this encounter Care Teams Pain Management Specialist Relationship Specialty Start Date End Date Farhat Cabezas MD PCP - General Family Medicine 01/13/11 Farhat Cabezas MD Referring Family Medicine 01/08/22 Farhat Cabezas MD [address] [place] [address] Referring Family Medicine 07/26/24 documented as of this encounter
--- OUTSIDE RECORDS SUMMARY | 2024-09-13 10:44 | XMS_ITS | Encounter Summary ---
Demographics Address [address] [place] [address] Home Phone Mobile Phone Email Address Preferred Language ENG Marital Status Single Druze Affiliation Unknown Race White Ethnic Group Not or Lati no Author Organization [facility] Address [address] [place] [address] Care Team Providers Care Property Damage Claims Adjustor Name Role Phone Farhat Cabezas MD Primary Care Provider [phone] Farhat Cabezas MD Unavailable [phone] Farhat Cabezas MD Unavailable [phone] Source Comments In the event this information is protected by the Federal Confidentiality of Alcohol and Drug AbusePatient Records regulations: The Federal rules restrict any use of the information to criminally investigate or prosecute any alcohol or drug abuse patient.[facility] Encounter Details Date Type Department Care Team (Late st Contact Info) Description 12/18/2019 Get Medical Advice [facility] REJ [address] [place], [place] [phone] Rachel Yi MD [address] [place] [address] RE: Visit Follow Up Question [...] Info) Description 09/13/2024 2:00 PM EDT [facility] Diabetic Education [facility] [address] [place] [address] [place] [address] [place] [address] Type 2 diabetes mellitus with hyperglycemia, with long-term current use of insulin (HCC) [E11.65, Z79.4] 11/20/2024 1:00 PM EDT [facility] Endocrinology [address] [place] [address] Valdez Suarez MD [address] [place] [address] [place] [address] follow up in 6 months 01/03/2025 10:00 AM [facility] Endocrinology [address] [place] [address] Greg Nina APRN.CRAFT ARTIST [address] [place] [address] diabetes follow up in 3 months virtually. documented as of this encounter Visit Diagnoses Not on filedocumented in this encounter Care Teams Property Damage Claims Adjustor Relationship Specialty Start Date End Date Farhat Cabezas MD PCP - General Family Medicine 01/13/11 Farhat Cabezas MD Referring Family Medicine 01/08/22 [place] [address] [place] [address] Referring Family Medicine 07/26/24 documented as of this encounter
--- OUTSIDE RECORDS SUMMARY | 2024-09-13 10:44 | XMS_ITS | Encounter Summary ---
Demographics Address [address] [facility] [place] [address] Home Phone Mobile Phone Email Address Preferred Language ENG Marital Status Single Synagogue Affiliation Unknown Race White Ethnic Group Not or Lati no Author Organization [facility] Address [address] [place] [address] Care Team Providers Care Burial Vault Deliverer And Installer Name Role Phone Farhat Cabezas MD Primary Care Provider [phone] Farhat Cabezas MD Unavailable [phone] Farhat Cabezas MD Unavailable [phone] Source Comments In the event this information is protected by the Federal Confidentiality of Alcohol and Drug AbusePatient Records regulations: The Federal rules restrict any use of the information to criminally investigate or prosecute any alcohol or drug abuse patient.[facility] Encounter Details Date Type Department Care Team (Late st Contact Info) Description 12/12/2021 Get Medical Advice Neurology [address] [place] [address] Mahogany Reyes, HIGH SCHOOL CHEMISTRY TEACHER.SELLING SPECIALIST [address] [place] [address] Refill 10mg Social History Tobacco [...] N ot on file 07/19/2021 Data from: https://www.neighborhoodatlas.medicine.[facility]/. Last address used for [...] Cerda RN - 12/12/2021 2:33 PM EDT [employer] message sent documented in this encounter Plan of Treatment Upcoming Encounters Date Type Department Care Team (Late st Contact Info) Description 09/13/2024 2:00 PM EDT [facility] Diabetic Education [facility] [address] [address] [place] [address] [place] [address] Type 2 diabetes mellitus with hyperglycemia, with long-term current use of insulin (HCC) [E11.65, Z79.4] 11/20/2024 1:00 PM EDT [facility] Endocrinology [address] [place] [address] Valdez Suarez MD [address] [place] [address] [address] [place], [place] [phone] follow up in 6 months 01/03/2025 10:00 AM EST [facility] Endocrinology [address] [place] [address] Greg Nina, HIGH SCHOOL CHEMISTRY TEACHER.SELLING SPECIALIST [address] [place] [address] diabetes follow up in 3 months virtually. documented as of this encounter Visit Diagnoses Not on filedocumented in this encounter Care Teams Burial Vault Deliverer And Installer Relationship Specialty Start Date End Date Farhat Cabezas MD PCP - General Family Medicine 01/13/11 Farhat Cabezas MD Referring Family Medicine 01/08/22 Farhat Cabezas MD [address] [place] [address] Referring Family Medicine 07/26/24 documented as of this encounter
--- OUTSIDE RECORDS SUMMARY | 2024-09-13 10:44 | XMS_ITS | Encounter Summary ---
Demographics Address [address] [place] [address] Home Phone Mobile Phone Email Address Preferred Language ENG Marital Status Single Temple Affiliation Unknown Race White Ethnic Group Not or Lati no Author Organization [facility] Address [address] [place] [address] Care Team Providers Care Vine Fruit Farming Supervisor Name Role Phone Farhat Cabezas MD Primary Care Provider [phone] Farhat Cabezas MD Unavailable [phone] Farhat Cabezas MD Unavailable [phone] Source Comments In the event this information is protected by the Federal Confidentiality of Alcohol and Drug AbusePatient Records regulations: The Federal rules restrict any use of the information to criminally investigate or prosecute any alcohol or drug abuse patient.[facility] Encounter Details Date Type Department Care Team (Late st Contact Info) Description 10/05/2019 Get Medical Advice [facility] REJ [address] [place], [place] [phone] Rachel Yi MD [address] [place] [address] RE: Visit Follow Up Question [...] EDT [facility] Diabetic Education [facility] [address] [place], [place] [address] [place] [address] [place] [address] Type 2 diabetes mellitus with hyperglycemia, with long-term current use of insulin (HCC) [E11.65, Z79.4] 11/20/2024 1:00 PM EDT [facility] Endocrinology [address] [place] [address] Valdez Suarez MD [address] [place] [address] [place] [address] follow up in 6 months 01/03/2025 10:00 AM EST [facility] Endocrinology [address] [place] [address] Greg Nina, MARITZA.SCREEN STRETCHER [address] [place] [address] diabetes follow up in 3 months virtually. documented as of this encounter Visit Diagnoses Not on filedocumented in this encounter Care Teams Vine Fruit Farming Supervisor Relationship Specialty Start Date End Date Farhat Cabzeas MD PCP - General Family Medicine 01/13/11 Farhat Cabezas MD Referring Family Medicine 01/08/22 Farhat Cabezas MD [address] [place] [address] Referring Family Medicine 07/26/24 documented as of this encounter
--- OUTSIDE RECORDS SUMMARY | 2024-09-13 10:44 | XMS_ITS | Encounter Summary ---
Demographics Address [address] [facility] [place] [address] Home Phone Mobile Phone Email Address Preferred Language ENG Marital Status Single Jehovah'S Witness Affiliation Unknown Race White Ethnic Group Not or Lati no Author Organization [facility] Address [address] [place] [address] Care Team Providers Care Applied Technologist Name Role Phone Farhat Cabezas MD Primary Care Provider [phone] Farhat Cabezas MD Unavailable [phone] Farhat Cabezas MD Unavailable [phone] Source Comments In the event this information is protected by the Federal Confidentiality of Alcohol and Drug AbusePatient Records regulations: The Federal rules restrict any use of the information to criminally investigate or prosecute any alcohol or drug abuse patient.[facility] Encounter Details Date Type Department Care Team (Late st Contact Info) Description 10/27/2021 Get Medical Advice Neurology [address] [place] [address] Mahogany Reyes, MORNING NEWS PRODUCER.WOOL BROKER [address] [place] [address] Med refill Social History Tobacco [...] N ot on file 07/19/2021 Data from: https://www.neighborhoodatlas.medicine.[facility]/. Last address used for [...] Cerda RN - 11/19/2021 8:06 AM EDT Weimit message sent * Telephone Encounter - Mahogany Reyes APRN.WOOL BROKER - 11/10/2021 11:59 AM EDT Order completed. PDMP website checked and validated. All prescriptions have been APPROPRIATELY filled. No suspiciousactivity was identified. 11/10/2021 by Mahogany Reyes APRN.WOOL BROKER * Telephone Encounter - Latasha Cerda RN - 11/10/2021 11:49 AM EDT Yosvany 03/20/21 w/ MORNING NEWS PRODUCER Fov 12/17/21 w/ MORNING NEWS PRODUCER My Chart message sent to patient to [...] BiPAP 12/8 cm H20. - Follow-up with MORNING NEWS PRODUCER for in person visit as this is a requirement when receiving controlled medications. Mahogany Reyes APRN.WOOL BROKER * Telephone Encounter - Latasha Cerda [...] Description 09/13/2024 2:00 PM EDT [facility] Diabetic Education [facility] [address] [place] [address] [place] [address] [place] [address] Type 2 diabetes mellitus with hyperglycemia, with long-term current use of insulin ([facility]) [E11.65, Z79.4] 11/20/2024 1:00 PM EDT [facility] Endocrinology [address] [place] [address] Valdez Suarez MD [address] [place] [address] [address] [place], [place] [phone] follow up in 6 months 01/03/2025 10:00 AM EST [facility] Endocrinology [address] [place] [address] Greg Nina APRN.WOOL BROKER [address] [place] [address] diabetes follow up in 3 months virtually. documented as of this encounter Visit Diagnoses Diagnosis Other insomnia documented in this encounter Care Teams Applied Technologist Relationship Specialty Start Date End Date Farhat Cabezas MD PCP - General Family Medicine 01/13/11 Farhat Cabezas MD Referring Family Medicine 01/08/22 Farhat Cabezas MD [address] [place] [address] Referring Family Medicine 07/26/24 documented as of this encounter
--- OUTSIDE RECORDS SUMMARY | 2024-09-13 10:44 | XMS_ITS | Encounter Summary ---
Demographics Address [address] [place] [address] Home Phone Mobile Phone Email Address Preferred Language ENG Marital Status Single Restoration Affiliation Unknown Race White Ethnic Group Not or Lati no Author Organization [facility] Address [address] [place] [address] Care Team Providers Care White Sugar Pan Tank Operator Name Role Phone Farhat Cabezas MD Primary Care Provider [phone] Farhat Cabezas MD Unavailable [phone] Farhat Cabezas MD Unavailable [phone] Source Comments In the event this information is protected by the Federal Confidentiality of Alcohol and Drug AbusePatient Records regulations: The Federal rules restrict any use of the information to criminally investigate or prosecute any alcohol or drug abuse patient.[facility] Encounter Details Date Type Department Care Team (Late st Contact Info) Description 12/18/2019 Get Medical Advice [facility] REJ [address] [place], [place] [phone] Rachel Yi MD [address] [place] [address] RE: Non-Urgent Medical Question Social [...] Info) Description 09/13/2024 2:00 PM EDT [facility] Diabetic Education [facility] [address] [place] [address] [place] [address] [place] [address] Type 2 diabetes mellitus with hyperglycemia, with long-term current use of insulin (HCC) [E11.65, Z79.4] 11/20/2024 1:00 PM EDT [facility] Endocrinology [address] [place] [address] Valdez Suarez MD [address] [place] [address] [place] [address] follow up in 6 months 01/03/2025 10:00 AM [facility] Endocrinology [address] [place] [address] Greg Nina APRN.CONVEYOR LOADER [address] [place], [place] [phone] diabetes follow up in 3 months virtually. documented as of this encounter Visit Diagnoses Not on filedocumented in this encounter Care Teams White Sugar Pan Tank Operator Relationship Specialty Start Date End Date Farhat Cabezas MD PCP - General Family Medicine 01/13/11 Farhat Cabezas MD Referring Family Medicine 01/08/22 [place] [address] [place] [address] Referring Family Medicine 07/26/24 documented as of this encounter
--- OUTSIDE RECORDS SUMMARY | 2024-09-13 10:44 | XMS_ITS | Encounter Summary ---
Demographics Address [address] [facility] [place] [address] Home Phone Mobile Phone Email Address Preferred Language ENG Marital Status Single Quaker Affiliation Unknown Race White Ethnic Group Not or Lati no Author Organization [facility] Address [address] [place] [address] Care Team Providers Care Shuttle Threader Name Role Phone Farhat Cabezas MD Primary Care Provider [phone] Farhat Cabezas MD Unavailable [phone] Farhat Cabezas MD Unavailable [phone] Source Comments In the event this information is protected by the Federal Confidentiality of Alcohol and Drug AbusePatient Records regulations: The Federal rules restrict any use of the information to criminally investigate or prosecute any alcohol or drug abuse patient.[facility] Encounter Details Date Type Department Care Team (Late st Contact Info) Description 09/23/2021 Patient [facility] [address] [place] [address] Provider, Ccf A [facility] Social History Tobacco Use Types [...] N ot on file 07/19/2021 Data from: https://www.neighborhoodatlas.[facility]/. Last address used [...] Contact Info) Description 09/13/2024 2:00 PM EDT [facility] Education [facility] [address] [place] [address] [place] [address] [place] [address] Type 2 diabetes mellitus with hyperglycemia, with long-term current use of insulin (HCC) [E11.65, Z79.4] 11/20/2024 1:00 PM EDT [facility] Endocrinology [address] [place] [address] Valdez Suarez MD [address] [place] [address] [address] [place], [place] [phone] follow up in 6 months 01/03/2025 10:00 AM EST [facility] Endocrinology [address] [place] [address] Greg Nina APRN.[facility] [address] [place], [place] [phone] diabetes follow up in 3 months virtually. documented as of this encounter Visit Diagnoses Not on filedocumented in this encounter Care Teams Shuttle Threader Relationship Specialty Start Date End Date Farhat Cabezas MD PCP - General Family Medicine 01/13/11 Farhat Cabezas MD Referring Family Medicine 01/08/22 Farhat Cabezas MD [address] [place] [address] Referring Family Medicine 07/26/24 documented as of this encounter
--- OUTSIDE RECORDS SUMMARY | 2024-09-13 10:44 | XMS_ITS | Encounter Summary ---
Author Organization [facility] Address [address] [place] [address] Care Team Providers Care Brineyard Supervisor Name Role Phone Farhat Cabezas MD Primary Care Provider [phone] Farhat Cabezas MD Unavailable [phone] Farhat Cabezas MD Unavailable [phone] Source Comments In the event this information is protected by the Federal Confidentiality of Alcohol and Drug AbusePatient Records regulations: The Federal rules restrict any use of the information to criminally investigate or prosecute any alcohol or drug abuse patient.[facility] Encounter Details Date Type Department Care Team (Late st Contact Info) Description 05/09/2019 Patient Msg Family Medicine [address] [place], [place] [phone] Provider, Ccpiero *Appointment Changes* Social History Tobacco [...] Contact Info) Description 09/13/2024 2:00 PM EDT [facility] Diabetic Education [facility] [address] [place] [address] [place] [address] [place], [place] [phone] Type 2 diabetes mellitus with hyperglycemia, with long-term current use of insulin ([facility]) [E11.65, Z79.4] 11/20/2024 1:00 PM EDT [facility] Endocrinology [address] [place] [address] Valdez Suarez MD [address] [place] [address] [place] [address] follow up in 6 months 01/03/2025 10:00 AM [facility] Endocrinology [address] [place] [address] Greg Nina APRN.JOB PLACEMENT COUNSELOR [address] [place], [place] [phone] diabetes follow up in 3 months virtually. documented as of this encounter Visit Diagnoses Not on filedocumented in this encounter Care Teams Brineyard Supervisor Relationship Specialty Start Date End Date Farhat Cabezas MD PCP - General Family Medicine 01/13/11 Farhat Cabezas MD Referring Family Medicine 01/08/22 Farhat Cabezas MD [address] [place] [address] Referring Family Medicine 07/26/24 documented as of this encounter
--- OUTSIDE RECORDS SUMMARY | 2024-09-13 10:44 | XMS_ITS | Encounter Summary ---
Demographics Address [address] [place] [address] Home Phone Mobile Phone Email Address Preferred Language ENG Marital Status Single Worship Affiliation Unknown Race White Ethnic Group Not or Lati no Author Organization [facility] Address [address] [place] [address] Care Team Providers Care Patient Relations Representative Name Role Phone Farhat Cabezas MD Primary Care Provider [phone] Farhat Cabezas MD Unavailable [phone] Farhat Cabezas MD Unavailable [phone] Source Comments In the event this information is protected by the Federal Confidentiality of Alcohol and Drug AbusePatient Records regulations: The Federal rules restrict any use of the information to criminally investigate or prosecute any alcohol or drug abuse patient.[facility] Encounter Details Date Type Department Care Team (Late st Contact Info) Description 08/12/2020 Get Medical Advice [facility] REJ [address] [place], [place] [id number] Rachel Yi MD [address] [place] [address] RE: Visit Follow Up Question [...] file 01/16/2020 Data from: https://www.neighborhoodatlas.medicine.[facility]/. Last address used for calculation [...] Contact Info) Description 09/13/2024 2:00 PM EDT [facility] [address] [place] [address] [place] [address] [place] [address] Type 2 diabetes mellitus with hyperglycemia, with long-term current use of insulin (HCC) [E11.65, Z79.4] 11/20/2024 1:00 PM EDT [facility] Endocrinology [address] [place] [address] Valdez Suarez MD [address] [place], [place] 2999035 follow up in 6 months 01/03/2025 10:00 AM EST [facility] Endocrinology [address] [place] [address] Greg Nina APRN.PER DIEM REGISTERED NURSE [address] [place], [place] 4578139 diabetes follow up in 3 months virtually. documented as of this encounter Visit Diagnoses Not on filedocumented in this encounter Care Teams Patient Relations Representative Relationship Specialty Start Date End Date Farhat Cabezas MD PCP - General Family Medicine 01/13/11 Farhat Cabezas MD Referring Family Medicine 01/08/22 Farhat Cabezas MD [address] [place] [address] Referring Family Medicine 07/26/24 documented as of this encounter
--- OUTSIDE RECORDS SUMMARY | 2024-09-13 10:44 | XMS_ITS | Encounter Summary ---
Demographics Address [address] [address] Home Phone Mobile Phone Email Address Preferred Language ENG Marital Status Single Pentecostal Affiliation Unknown Race White Ethnic Group Not or Lati no Author Organization [facility] Address [address] [place] [address] Care Team Providers Care Silk Examiner Name Role Phone Farhat Cabezas MD Primary Care Provider [phone] Farhat Cabezas MD Unavailable [phone] Farhat Cabezas MD Unavailable [phone] Source Comments In the event this information is protected by the Federal Confidentiality of Alcohol and Drug AbusePatient Records regulations: The Federal rules restrict any use of the information to criminally investigate or prosecute any alcohol or drug abuse patient.[facility] Encounter Details Date Type Department Care Team (Late st Contact Info) Description 03/31/2022 Patient Msg Neurology [address] [phone] Provider, Ccf refills Social History Tobacco Use [...] N ot on file 02/25/2022 Data from: https://www.neighborhoodatlas.[facility]/. Last address used for calculation [address] 02/25/2022 Comments No Sex and Gender [...] Contact Info) Description 09/13/2024 2:00 PM EDT [facility] Diabetic Education [facility] [address] [place] [address] [place] [address] [place] [address] Type 2 diabetes mellitus with hyperglycemia, with long-term current use of insulin (HCC) [E11.65, Z79.4] 11/20/2024 1:00 PM EDT [facility] Endocrinology [address] [place] [address] Valdez Suarez MD [address] [place] [address] [address] [place], [place] [phone] follow up in 6 months 01/03/2025 10:00 AM EST [facility] Endocrinology [address] [place] [address] Greg Nina APRN.APPLICATIONS ADMINISTRATOR [address] [place] [address] diabetes follow up in 3 months virtually. documented as of this encounter Visit Diagnoses Not on filedocumented in this encounter Care Teams Silk Examiner Relationship Specialty Start Date End Date Farhat Cabezas MD PCP - General Family Medicine 01/13/11 Farhat Cabezas MD Referring Family Medicine 01/08/22 Farhat Cabezas MD [address] [place] [address] Referring Family Medicine 07/26/24 documented as of this encounter
--- OUTSIDE RECORDS SUMMARY | 2024-09-13 10:44 | XMS_ITS | Encounter Summary ---
Author Organization [facility] Address [address] [place] [address] Care Team Providers Care Press Catcher Name Role Phone Jacob Santillan MD Primary Care Provider [phone] Farhat Cabezas MD Primary Care Provider [phone] Farhat Cabezas MD Unavailable [phone] Farhat Cabezas MD Unavailable [phone] Source Comments In the event this information is protected by the Federal Confidentiality of Alcohol and Drug AbusePatient Records regulations: The Federal rules restrict any use of the information to criminally investigate or prosecute any alcohol or drug abuse patient.[facility] Encounter Details Date Type Department Care Team ([facility] Contact Info) Description 10/18/2008 Patient Msg Medical Records [address] [place] [address] Provider, Ccf Patient Registration Social History Tobacco [...] Department Care Team ([facility] Contact Info) Description 09/13/2024 2:00 PM EDT [facility] Diabetic Education [facility] [address] [place] [address] [place] [address] [place] [address] Type 2 diabetes mellitus with hyperglycemia, with long-term current use of insulin (HCC) [E11.65, Z79.4] 11/20/2024 1:00 PM EDT [facility] Endocrinology [address] [place] [address] Valdez Suarez MD [address] [place] [address] [address] [place], [place] 0304435 follow up in 6 months 01/03/2025 10:00 AM EST [facility] Endocrinology [address] [place] [address] Greg Nina, COMPANY DOCTOR.MUSIC EDUCATION ADJUNCT PROFESSOR [address] [place] [address] diabetes follow up in 3 months virtually. documented as of this encounter Visit Diagnoses Not on filedocumented in this encounter Care Teams Press Catcher Relationship Specialty Start Date End Date Jacob Santillan MD PCP - General 08/05/05 01/12/11 Farhat Cabezas MD PCP - General Family Medicine 01/13/11 Farhat Cabezas MD Referring Family Medicine 01/08/22 Farhat Cabezas MD [address] [place] [address] Referring Family Medicine 07/26/24 documented as of this encounter
--- OUTSIDE RECORDS SUMMARY | 2024-09-13 10:44 | XMS_ITS | Encounter Summary ---
Demographics Address [address] [place] [address] Home Phone Mobile Phone Email Address Preferred Language ENG Marital Status Single Confucianism Affiliation Unknown Race White Ethnic Group Not or Lati no Author Organization [facility] Address [address] [place] [address] Care Team Providers Care Senior Manufacturing Engineer Name Role Phone Farhat Cabezas MD Primary Care Provider [phone] Farhat Cabezas MD Unavailable [phone] Farhat Cabezas MD Unavailable [phone] Source Comments In the event this information is protected by the Federal Confidentiality of Alcohol and Drug AbusePatient Records regulations: The Federal rules restrict any use of the information to criminally investigate or prosecute any alcohol or drug abuse patient.[facility] Encounter Details Date Type Department Care Team (Late st Contact Info) Description 04/18/2020 Get Medical Advice [facility] REJ [address] [place], [place] [phone] Rachel Yi MD [address]506 [place] [address] RE: Test Result Question Social [...] ot on file 01/16/2020 Data from: https://www.neighborhoodatlas.medicine.[facility]/. Last address [...] Description 09/13/2024 2:00 PM EDT [facility] [address] [place] [address] [place] [address] [place] [address] Type 2 diabetes mellitus with hyperglycemia, with long-term current use of insulin (HCC) [E11.65, Z79.4] 11/20/2024 1:00 PM EDT [facility] Endocrinology [address] [place] [address] Valdez Suarez MD [address] [address] [place], [place] [phone] follow up in 6 months 01/03/2025 10:00 AM EST [facility] Endocrinology [address] [place] [address] Greg Nina APRN.[facility] [address] [place], [place] [phone] diabetes follow up in 3 months virtually. documented as of this encounter Visit Diagnoses Not on filedocumented in this encounter Care Teams Senior Manufacturing Engineer Relationship Specialty Start Date End Date Farhat Cabezas MD PCP - General Family Medicine 01/13/11 Farhat Cabezas MD Referring Family Medicine 01/08/22 Farhat Cabezas MD [address] [place] [address] Referring Family Medicine 07/26/24 documented as of this encounter
--- OUTSIDE RECORDS SUMMARY | 2024-09-13 10:44 | XMS_ITS | Encounter Summary ---
Demographics Address [address] [place] [address] Home Phone Mobile Phone Email Address Preferred Language ENG Marital Status Single Bahai Affiliation Unknown Race White Ethnic Group Not or Lati no Author Organization [facility] Address [address] [place] [address] Care Team Providers Care Bindery Assistant Name Role Phone Jacob Santillan MD Primary Care Provider Farhat Cabezas MD Primary Care Provider [phone] Farhat Cabezas MD Unavailable [phone] Farhat Cabezas MD Unavailable [phone] Source Comments In the event this information is protected by the Federal Confidentiality of Alcohol and Drug AbusePatient Records regulations: The Federal rules restrict any use of the information to criminally investigate or prosecute any alcohol or drug abuse patient.[facility] Reason for Visit * Reason Comments Outside Lab Results [facility] 05/09/08 Encounter Details Date Type Department Care Team (Late st Contact Info) Description 05/14/2008 Abstract Rheumatology [address] [place] [address] Zabrina Culver MD [address] [facility] [place] [place] [address] Outside Lab Results ([facility] 05/09/08) Social History Tobacco Use Types [...] Description 09/13/2024 2:00 PM EDT [facility] Diabetic Education [facility] [address] [place] [address] [place] [address] [place] [address] Type 2 diabetes mellitus with hyperglycemia, with long-term current use of insulin (HCC) [E11.65, Z79.4] 11/20/2024 1:00 PM EDT [facility] Endocrinology [address] [place] [address] Valdez Suarez MD [address] [place] [address] [place] [address] follow up in 6 months 01/03/2025 10:00 AM EST [facility] Endocrinology [address] [place] [address] Greg Nina APRN.PIPE FITTINGS MOLDER [address] [place] [address] diabetes follow up in 3 months virtually. documented as of this encounter Visit Diagnoses Not on filedocumented in this encounter Care Teams Bindery Assistant Relationship Specialty Start Date End Date Jacob Santillan MD PCP - General 08/05/05 01/12/11 Farhat Cabezas MD PCP - General Family Medicine 01/13/11 Farhat Cabezas MD Referring Family Medicine 01/08/22 Farhat Cabezas MD [address] [place] 7890211 Referring Family Medicine 07/26/24 documented as of this encounter
--- OUTSIDE RECORDS SUMMARY | 2024-09-13 10:44 | XMS_ITS | Encounter Summary ---
Author Organization [facility] Address [facility] [place] [address] Care Team Providers Care Yarn Mercerizer Operator Name Role Phone Jacob Santillan MD Primary Care Provider [phone] Farhat Cabezas MD Primary Care Provider [phone] Farhat Cabezas MD Unavailable [phone] Farhat Cabezas MD Unavailable [phone] Source Comments In the event this information is protected by the Federal Confidentiality of Alcohol and Drug AbusePatient Records regulations: The Federal rules restrict any use of the information to criminally investigate or prosecute any alcohol or drug abuse patient.[facility] Encounter Details Date Type Department Care Team (Late st Contact Info) Description 09/20/2008 Patient Msg Medical Records [address] [place] [address] Provider, Ccf RE: Findings/questions/GI refferal Social History [...] Info) Description 09/13/2024 2:00 PM EDT [facility] Diabetic Education [facility] [address] [place] [address] [place] [address] [place] [address] Type 2 diabetes mellitus with hyperglycemia, with long-term current use of insulin (HCC) [E11.65, Z79.4] 11/20/2024 1:00 PM EDT [facility] Endocrinology [address] [place] [address] Valdez Suarez MD [address] [place] [address] [address] [place], [place] 9684735 follow up in 6 months 01/03/2025 10:00 AM EST [facility] Endocrinology [address] [place] [address] Greg Nina, MARITZA.ACCOUNT CONTACT ASSOCIATE [address] [place] [address] diabetes follow up in 3 months virtually. documented as of this encounter Visit Diagnoses Not on filedocumented in this encounter Care Teams Yarn Mercerizer Operator Relationship Specialty Start Date End Date Jacob Santillan MD PCP - General 08/05/05 01/12/11 Farhat Cabezas MD PCP - General Family Medicine 01/13/11 Farhat Cabezas MD Referring Family Medicine 01/08/22 Farhat Cabezas MD [address] [place] [address] Referring Family Medicine 07/26/24 documented as of this encounter
--- OUTSIDE RECORDS SUMMARY | 2024-09-13 10:44 | XMS_ITS | Encounter Summary ---
Author Organization [facility] Address [facility] [place] [address] Care Team Providers Care Mailroom Coordinator Name Role Phone Farhat Cabezas MD Primary Care Provider [phone] Farhat Cabezas MD Unavailable [phone] Farhat Cabezas MD Unavailable [phone] Source Comments In the event this [...] Get Medical Advice General Surgery BMI PSYL [address] [place], [place] 1278011 Graciela Hoyt, PhD [address] [phone] RE: Upcoming Appointment Question Social History Tobacco [...] Contact Info) Description 09/13/2024 2:00 PM EDT [facility] Diabetic Education [facility] [address] [place] [address] [place] [address] [place] [address] Type 2 diabetes mellitus with hyperglycemia, with long-term current use of insulin (HCC) [E11.65, Z79.4] 11/20/2024 1:00 PM EDT [facility] Endocrinology [address] [place] [address] Valdez Suarez MD [address] [place] [address] [address] [place], [place] 4134335 follow up in 6 months 01/03/2025 10:00 AM EST [facility] Endocrinology [address] [place] [address] Greg Nina APRN.CUSTODIAL AIDE [address] [place], [place] [phone] diabetes follow up in 3 months virtually. documented as of this encounter Visit Diagnoses Not on filedocumented in this encounter Care Teams Mailroom Coordinator Relationship Specialty Start Date End Date Farhat Cabezas MD PCP - General Family Medicine 01/13/11 Farhat Cabezas MD Referring Family Medicine 01/08/22 Farhat Cabezas MD [address] [place] [address] Referring Family Medicine 07/26/24 documented as of this encounter
--- OUTSIDE RECORDS SUMMARY | 2024-09-13 10:44 | XMS_ITS | Encounter Summary ---
Author Organization [facility] Address [address] [place] [address] Care Team Providers Care Military Personnel Specialist Name Role Phone Jacob Santillan MD Primary Care Provider [phone] Farhat Cabezas MD Primary Care Provider [phone] Farhat Cabezsa MD Unavailable [phone] Farhat Cabezas MD Unavailable [phone] Source Comments In the event this information is protected by the Federal Confidentiality of Alcohol and Drug AbusePatient Records regulations: The Federal rules restrict any use of the information to criminally investigate or prosecute any alcohol or drug abuse patient.[facility] Encounter Details Date Type Department Care Team ([facility] Contact Info) Description 09/20/2008 Patient Msg Medical Records [address] [place] [address] Provider, Ccf labwork Social History Tobacco Use [...] Upcoming Encounters Date Type Department Care Team ([facility] Contact Info) Description 09/13/2024 2:00 PM EDT [facility] Diabetic Education [facility] [address] [place] [address] [place] [address] [place] [address] Type 2 diabetes mellitus with hyperglycemia, with long-term current use of insulin (HCC) [E11.65, Z79.4] 11/20/2024 1:00 PM EDT [facility] Endocrinology [address] [place] [address] Valdez Suarez MD [address] [place] [address] [address] [place], [place] [phone] follow up in 6 months 01/03/2025 10:00 AM EST [facility] Endocrinology [address] [place] [address] Greg Nina, OUTDOOR STUDIES PROFESSOR.DIRECTOR CAREER SERVICES [address] [place] [address] diabetes follow up in 3 months virtually. documented as of this encounter Visit Diagnoses Not on filedocumented in this encounter Care Teams Military Personnel Specialist Relationship Specialty Start Date End Date Jacob Santillan MD PCP - General 08/05/05 01/12/11 Farhat Cabezas MD PCP - General Family Medicine 01/13/11 Farhat Cabezas MD Referring Family Medicine 01/08/22 Farhat Cabezas MD [address] [place] [address] Referring Family Medicine 07/26/24 documented as of this encounter
--- OUTSIDE RECORDS SUMMARY | 2024-09-13 10:44 | XMS_ITS | Encounter Summary ---
Author Organization [facility] Address [address] [place] [address] Care Team Providers Care Expediter Name Role Phone Farhat Cabezas MD Primary Care Provider [phone] Farhat Cabezas MD Unavailable [phone] Farhat Cabezas MD Unavailable [phone] Source Comments In the event this information is protected by the Federal Confidentiality of Alcohol and Drug AbusePatient Records regulations: The Federal rules restrict any use of the information to criminally investigate or prosecute any alcohol or drug abuse patient.[facility] Encounter Details Date Type Department Care Team (Late st Contact Info) Description 08/05/2019 Patient Msg Family Medicine [address] [place], [place] [phone] Provider, Ccf Appointment Needed! Social History Tobacco [...] Info) Description 09/13/2024 2:00 PM EDT [facility] Diabetic Education [facility] [address] [place] [address] [place] [address] [place], [place] [phone] Type 2 diabetes mellitus with hyperglycemia, with long-term current use of insulin (HCC) [E11.65, Z79.4] 11/20/2024 1:00 PM EDT [facility] Endocrinology [address] [place] [address] Valdez Suarez MD [address] [place] [address] [place] [address] follow up in 6 months 01/03/2025 10:00 AM [facility] Endocrinology [address] [place] [address] Greg Nina APRN.IMMIGRATION INVESTIGATOR [address] [place] [address] diabetes follow up in 3 months virtually. documented as of this encounter Visit Diagnoses Not on filedocumented in this encounter Care Teams Expediter Relationship Specialty Start Date End Date Farhat Cabezas MD PCP - General Family Medicine 01/13/11 Farhat Cabezas MD Referring Family Medicine 01/08/22 Farhat Cabezas MD [address] [place] [address] Referring Family Medicine 07/26/24 documented as of this encounter
--- OUTSIDE RECORDS SUMMARY | 2024-09-13 10:44 | XMS_ITS | Encounter Summary ---
Author Organization [facility] Address [address] [place] [address] Care Team Providers Care Baggage Agent Supervisor Name Role Phone Farhat Cabezas MD Primary Care Provider [phone] Farhat Cabezas MD Unavailable [phone] Farhat Cabezas MD Unavailable [phone] Source Comments In the event this information is protected by the Federal Confidentiality of Alcohol and Drug AbusePatient Records regulations: The Federal rules restrict any use of the information to criminally investigate or prosecute any alcohol or drug abuse patient.[facility] Encounter Details Date Type Department Care Team (Late st Contact Info) Description 06/14/2019 Patient Msg BMI [facility] REJ [address] [place], [place] [phone] Rachel Yi MD [address]507 [place] [address] Bariatric Labs Social History Tobacco [...] Info) Description 09/13/2024 2:00 PM EDT [facility] Diabetic Education [facility] [address] [place] [address] Ignacio Garcia, SABIHA [address] [place] [address] Type 2 diabetes mellitus with hyperglycemia, with long-term current use of insulin (HCC) [E11.65, Z79.4] 11/20/2024 1:00 PM EDT [facility] Endocrinology [address] [place] [address] Valdez Suarez MD [address] [place] [address] [address] [place], [place] [phone] follow up in 6 months 01/03/2025 10:00 AM EST [facility] Endocrinology [address] [place] [address] Greg Nina APRN.HYBRID DERIVATIVES TRADER [address] [place], [place] [phone] diabetes follow up in 3 months virtually. documented as of this encounter Visit Diagnoses Not on filedocumented in this encounter Care Teams Baggage Agent Supervisor Relationship Specialty Start Date End Date Farhat Cabezas MD PCP - General Family Medicine 01/13/11 Farhat Cabezas MD Referring Family Medicine 01/08/22 Farhat Cabezas MD [address] [place] [address] Referring Family Medicine 07/26/24 documented as of this encounter
--- OUTSIDE RECORDS SUMMARY | 2024-09-13 10:44 | XMS_ITS | Encounter Summary ---
Demographics Address [address] [facility] [place] [address] Home Phone Mobile Phone Email Address Preferred Language ENG Marital Status Single Christianity Affiliation Unknown Race White Ethnic Group Not or Lati no Author Organization [facility] Address [address] [place] [address] Care Team Providers Care Machine Stemmer Name Role Phone Farhat Cabezas MD Primary Care Provider [phone] Farhat Cabezas MD Unavailable [phone] Farhat Cabezas MD Unavailable [phone] Source Comments In the event this information is protected by the Federal Confidentiality of Alcohol and Drug AbusePatient Records regulations: The Federal rules restrict any use of the information to criminally investigate or prosecute any alcohol or drug abuse patient.[facility] Encounter Details Date Type Department Care Team (Late st Contact Info) Description 04/29/2022 Get Medical Advice Neurology [address] [place], [place] [id number] Fariha Acevedo MD [address] [place] [address] SLEEP APNEA / DOWNLOAD BI [...] N ot on file 02/25/2022 Data from: https://www.neighborhoodatlas.medicine.[facility]/. Last address used [...] Carpio RN - 04/29/2022 2:57 PM EDT Zen[employer] message sent * Telephone Encounter - Keshawn Carpio RN - 04/29/2022 2:50 PM EDT Images from the original note were not included. documented in this encounter Plan of Treatment Upcoming Encounters Date Type Department Care Team (Late st Contact Info) Description 09/13/2024 2:00 PM EDT [facility] Diabetic Education [facility] [address] [place] [address] [place] [address] [place] [address] Type 2 diabetes mellitus with hyperglycemia, with long-term current use of insulin ([facility]) [E11.65, Z79.4] 11/20/2024 1:00 PM EDT [facility] Endocrinology [address] [place] [address] Valdez Suarez MD [address] [place] [address] [place] [address] follow up in 6 months 01/03/2025 10:00 AM EST [facility] Endocrinology [address] [place] [phone] Greg Nina APRN.MOBILE PATROL OFFICER [address] [place] [address] diabetes follow up in 3 months virtually. documented as of this encounter Visit Diagnoses Not on filedocumented in this encounter Care Teams Machine Stemmer Relationship Specialty Start Date End Date Farhat Cabezas MD PCP - General Family Medicine 01/13/11 Farhat Cabezas MD Referring Family Medicine 01/08/22 Farhat Cabezas MD [address] [place] [address] Referring Family Medicine 07/26/24 documented as of this encounter
--- OUTSIDE RECORDS SUMMARY | 2024-09-13 10:44 | XMS_ITS | Encounter Summary ---
Demographics Address [address] [place] [address] Home Phone Mobile Phone Email Address Preferred Language ENG Marital Status Single Taoist Affiliation Unknown Race White Ethnic Group Not or Lati no Author Organization [facility] Address [address] [place] [address] Care Team Providers Care Pinner Printed Circuit Boards Name Role Phone Farhat Cabezas MD Primary Care Provider [phone] Farhat Cabezas MD Unavailable [phone] Farhat Cabezas MD Unavailable [phone] Source Comments In the event this information is protected by the Federal Confidentiality of Alcohol and Drug AbusePatient Records regulations: The Federal rules restrict any use of the information to criminally investigate or prosecute any alcohol or drug abuse patient.[facility] Encounter Details Date Type Department Care Team (Late st Contact Info) Description 04/09/2020 Get Medical Advice General Surgery [address] [place] [address] Rachel Yi MD [address] [place] [address] RE: Upcoming Appointment Question Social [...] on file 01/16/2020 Data from: https://www.neighborhoodatlas.medicine.[facility]/. Last address used for calculation Not on [...] Contact Info) Description 09/13/2024 2:00 PM EDT [facility] Diabetic Education [facility] [address] [place] [address] [place] [address] [place], [place] [id number] Type 2 diabetes mellitus with hyperglycemia, with long-term current use of insulin (HCC) [E11.65, Z79.4] 11/20/2024 1:00 PM EDT [facility] Endocrinology [address] [place] [phone] Valdez Suarez MD [address] [place] [address] [address] [place], [place] [phone] follow up in 6 months 01/03/2025 10:00 AM EST [facility] Endocrinology [address] [place] [phone] Greg Nina APRN.[facility] [address] [place], [place] [phone] diabetes follow up in 3 months virtually. documented as of this encounter Visit Diagnoses Not on filedocumented in this encounter Care Teams Pinner Printed Circuit Boards Relationship Specialty Start Date End Date Farhat Cabezas MD PCP - General Family Medicine 01/13/11 Farhat Cabezas MD Referring Family Medicine 01/08/22 Farhat Cabezas MD [address] [place] [address] Referring Family Medicine 07/26/24 documented as of this encounter
--- OUTSIDE RECORDS SUMMARY | 2024-09-13 10:44 | XMS_ITS | Encounter Summary ---
Demographics Address [address] [place] [address] Home Phone Mobile Phone Email Address Preferred Language ENG Marital Status Single Christianity Affiliation Unknown Race White Ethnic Group Not or Lati no Author Organization [facility] Address [address] [place] [address] Care Team Providers Care Hat Blocking Machine Operator Name Role Phone Farhat Cabezas MD Primary Care Provider [phone] Farhat Cabezas MD Unavailable [phone] Farhat Cabezas MD Unavailable [phone] Source Comments In the event this information is protected by the Federal Confidentiality of Alcohol and Drug AbusePatient Records regulations: The Federal rules restrict any use of the information to criminally investigate or prosecute any alcohol or drug abuse patient.[facility] Encounter Details Date Type Department Care Team (Late st Contact Info) Description 02/22/2020 Get Medical Advice [facility] [address]J [address] [place], [place] [phone] Rachel Yi MD [address] [place] [address] RE: Medication Question (Not Renewal) [...] file 01/16/2020 Data from: https://www.neighborhoodatlas.medicine.[facility]/. Last address used for [...] Info) Description 09/13/2024 2:00 PM EDT Distance [facility] Diabetic Education [facility] [address] [place] [address] [place] [address] [place] [address] Type 2 diabetes mellitus with hyperglycemia, with long-term current use of insulin ([facility]) [E11.65, Z79.4] 11/20/2024 1:00 PM EDT [facility] Endocrinology [address] [place] [phone] Valdez Suarez MD [address] [place] [address] [place] [address] follow up in 6 months 01/03/2025 10:00 AM EST [facility] Endocrinology [address] [place] [address] Greg Nina APRN.[facility] [address] [place] [address] diabetes follow up in 3 months virtually. documented as of this encounter Visit Diagnoses Not on filedocumented in this encounter Care Teams Hat Blocking Machine Operator Relationship Specialty Start Date End Date Farhat Cabezas MD PCP - General Family Medicine 01/13/11 Farhat Cabezas MD Referring Family Medicine 01/08/22 Farhat Cabezas MD [address] [place] [address] Referring Family Medicine 07/26/24 documented as of this encounter
--- OUTSIDE RECORDS SUMMARY | 2024-09-13 10:44 | XMS_ITS | Encounter Summary ---
Author Organization [facility] Address [address] [place] [address] Care Team Providers Care Pumping Station Supervisor Name Role Phone Farhat Cabezas MD Primary Care Provider [phone] Farhat Cabezas MD Unavailable [phone] Farhat Cabezas MD Unavailable [phone] Source Comments In the event this information is protected by the Federal Confidentiality of Alcohol and Drug AbusePatient Records regulations: The Federal rules restrict any use of the information to criminally investigate or prosecute any alcohol or drug abuse patient.[facility] Encounter Details Date Type Department Care Team (Late st Contact Info) Description 09/20/2019 Abstract BMI [facility] REJ [address] [place] [address] Rachel Yi MD [address] [place] [address] Social History Tobacco Use Types [...] [facility] Diabetic Education [facility] [address] [place] [address] [place] [address] [place] [address] Type 2 diabetes mellitus with hyperglycemia, with long-term current use of insulin (HCC) [E11.65, Z79.4] 11/20/2024 1:00 PM EDT [facility] Endocrinology [address] [place] [address] Valdez Suarez MD [address] [place] [address] [place], [place] [phone] follow up in 6 months 01/03/2025 10:00 AM EST [facility] Endocrinology [address] [place] [phone] Greg Nina, MARITZA.[facility] [address] [place], [place] [phone] diabetes follow up in 3 months virtually. documented as of this encounter Visit Diagnoses Not on filedocumented in this encounter Care Teams Pumping Station Supervisor Relationship Specialty Start Date End Date Farhat Cabezas MD PCP - General Family Medicine 01/13/11 Farhat Cabezas MD Referring Family Medicine 01/08/22 Farhat Cabezas MD [address] [place] [address] Referring Family Medicine 07/26/24 documented as of this encounter
--- OUTSIDE RECORDS SUMMARY | 2024-09-13 10:44 | XMS_ITS | Encounter Summary ---
Author Organization [facility] Address [facility] [place] [address] Care Team Providers Care Marine Drafter Name Role Phone Farhat Cabezas MD Primary Care Provider [phone] Farhat Cabezas MD Unavailable [phone] Farhat Cabezas MD Unavailable [phone] Source Comments In the event this information is protected by the Federal Confidentiality of Alcohol and Drug AbusePatient Records regulations: The Federal rules restrict any use of the information to criminally investigate or prosecute any alcohol or drug abuse patient.[facility] Encounter Details Date Type Department Care Team (Late st Contact Info) Description 12/18/2019 Get Medical Advice General Surgery BMI PSYL [address] [place], [place] [phone] Graciela Hoyt, PhD [address] [place] [phone] RE: Visit Follow Up Question Social History [...] Contact Info) Description 09/13/2024 2:00 PM EDT [facility] Diabetic Education [facility] [address] [place] [address] Ignacio Garcia, SABIHA [address] [place], [place] [phone] Type 2 diabetes mellitus with hyperglycemia, with long-term current use of insulin (HCC) [E11.65, Z79.4] 11/20/2024 1:00 PM EDT [facility] Endocrinology [address] [place] [phone] Valdez Suarez MD [address] [place] [address] [place] [address] follow up in 6 months 01/03/2025 10:00 AM [facility] Endocrinology [address] [place] [phone] Greg Nina APRN.MANAGER STRATEGIC DEVELOPMENT [address] [place], [place] [phone] diabetes follow up in 3 months virtually. documented as of this encounter Visit Diagnoses Not on filedocumented in this encounter Care Teams Marine Drafter Relationship Specialty Start Date End Date Farhat Cabezas MD PCP - General Family Medicine 01/13/11 Farhat Cabezas MD Referring Family Medicine 01/08/22 Farhat Cabezas MD [address] [place] [address] Referring Family Medicine 07/26/24 documented as of this encounter
--- OUTSIDE RECORDS SUMMARY | 2024-09-13 10:44 | XMS_ITS | Encounter Summary ---
Demographics Address [address] [facility] [place] [address] Home Phone Mobile Phone Email Address Preferred Language ENG Marital Status Single Buddhist Affiliation Unknown Race White Ethnic Group Not or Lati no Author Organization [facility] Address [address] [place] [address] Care Team Providers Care Assistant Import Manager Name Role Phone Farhat Cabezas MD Primary Care Provider [phone] Farhat Cabezas MD Unavailable [phone] Farhat Cabezas MD Unavailable [phone] Source Comments In the event this [...] Sleep Disorders [address] [place] [address] Mehnaz Serrano APRN.ELECTRON BEAM OPERATOR [address] [place] [address] sleep plan Social History Tobacco [...] N ot on file 02/25/2022 Data from: https://www.neighborhoodatlas.medicine.[facility]/. Last address used for calculation [address] 02/25/2022 Comments No Sex and [...] Contact Info) Description 09/13/2024 2:00 PM EDT [facility] [address] [place] [address] [place] [address] [place] [address] Type 2 diabetes mellitus with hyperglycemia, with long-term current use of insulin (HCC) [E11.65, Z79.4] 11/20/2024 1:00 PM EDT [facility] Endocrinology [address] [place] [phone] Valdez Suarez MD [address] [place] [address] [address] [place], [place] [phone] follow up in 6 months 01/03/2025 10:00 AM EST [facility] Endocrinology [address] [place] [address] Greg Nina APRN.[facility] [address] [place], [place] [phone] diabetes follow up in 3 months virtually. documented as of this encounter Visit Diagnoses Not on filedocumented in this encounter Care Teams Assistant Import Manager Relationship Specialty Start Date End Date Farhat Cabezas MD PCP - General Family Medicine 01/13/11 Farhat Cabezas MD Referring Family Medicine 01/08/22 Farhat Cabezas MD [address] [place] [address] Referring Family Medicine 07/26/24 documented as of this encounter
--- OUTSIDE RECORDS SUMMARY | 2024-09-13 10:44 | XMS_ITS | Patient Health Record ---
Author Organization [facility] in [place] Address [address] [place] [address] Care Team Providers Care Pediatric Nephrologist Name Role Phone DAVEY CABEZAS MD Primary Care Provider [phone] Davey Cabezas Unavailable [phone] Adrienne Corbett Unavailable [phone] Allergies Allergen (clinical drug ingredient) Drug/Non Drug Allergy documented on EMR Reaction Allergy Type Onset Date Status metformin metFORMIN HCl stomach upset Drug Allergy Active ibuprofen Ibuprofen stomach upset Drug Allergy Act libertad Results Component Value Reference Range Notes UA DIP NONAUTO WO MICRO (810 02) - IN OFFICE (Not yet reviewed by provider) Interpretation: Performing Lab: Notes/Report: COLOR staw CLARITY cler GLUCOSE neg BILIRUBIN neg KETONE neg SPECIFIC GRAVITY 1.010 BLOOD neg PH 6.5 PROTEIN pos UROBILINOGEN neg NITRITE neg LEUKOCYTE ESTERASE trace CBC AUTO DIFF Reviewed date:04/05/2024 12:43:55 PM Interpretation: Performing Lab: Notes/Report: [facility] , White Blood Count 8.5 4.0-11.0 [...] 3/uL Performing Lab: see note ML - [facility] LB PROF 14(COMP METB) Reviewed date:04/05/2024 12:43:55 PM Interpretation: Performing Lab: Notes/Report: [facility] , Sodium 139 136-145 mmol/L Potassium [...] Performing Lab: see note ML - [facility] LB RAFAELA by IFA Reviewed date:07/25/2024 04:47:33 PM Interpretation: Performing Lab: Notes/Report: [facility] , Antinuclear Antibodies, IFA Negative . Negative <1:80 Borderline 1:80 Positive >1:80 ICAP nomenclature: AC-0 For more information about Hep-2 cell patterns use ANApatterns.org, the official website for the International Consensus on Antinuclear Antibody (RAFAELA) Patterns (ICAP). Performed at: - [facility] [address] [id number] Shop Assistant: Moi Osborne PhD, Phone: [phone] Performing Lab: see note - [facility] LB CBC AUTO DIFF Reviewed date:07/23/2024 12:49:20 PM Interpretation: Performing Lab: Notes/Report: [facility] , White Blood Count 7.7 4.0-11.0 [...] Performing Lab: see note ML - [facility] LB CRP Reviewed date:07/23/2024 12:49:20 PM Interpretation: Performing Lab: Notes/Report: [facility] , C Reactive Protein 2.23 <=0.50 mg/dL Performing Lab: see note ML - [facility] LB FREE T3 Reviewed date:07/23/2024 12:49:20 PM Interpretation: Performing Lab: Notes/Report: [facility] , Free T3 2.09 2.18-3.98 pg/mL Performing Lab: see note ML - [facility] IRON Reviewed date:07/23/2024 12:49:20 PM Interpretation: Performing Lab: Notes/Report: [facility] , Iron 34.0 50.0-170.0 ug/dL Performing Lab: see note ML - [facility] PROF 14(COMP METB) Reviewed date:07/23/2024 12:49:20 PM Interpretation: Performing Lab: Notes/Report: [facility] , Sodium 138 136-145 mmol/L Potassium [...] Performing Lab: see note ML - [facility] LB RHEUMATOID FACTOR Reviewed date:07/25/2024 04:47:33 PM Interpretation: Performing Lab: Notes/Report: [facility] , Rheumatoid Factor (RF) <10.0 <14.0 IU/mL Performing Lab: see note - [facility] LB T4 Reviewed date:07/23/2024 12:49:20 PM Interpretation: Performing Lab: Notes/Report: [facility] , T4 Thyroxine 5.40 4.80-13.90 ug/dL Performing Lab: see note ML - [facility] LB TSH Reviewed date:07/23/2024 12:49:20 PM Interpretation: Performing Lab: Notes/Report: [facility] , Thyroid Stimulating Hormone 4.618 0.358-3.740 uIU/mL Performing Lab: see note ML - [facility] LB URIC ACID SERUM Reviewed date:07/23/2024 12:49:20 PM Interpretation: Performing Lab: Notes/Report: [facility] , Uric Acid 5.8 2.6-6.0 mg/dL Performing Lab: see note ML - [facility] LB Antistreptolysin O Ab Reviewed date:07/25/2024 04:47:33 PM Interpretation: Performing Lab: Notes/Report: [facility] , Antistreptolysin O Ab 104.5 0.0-200.0 IU/mL Performed at: [facility] [id number] Shop Assistant: Moi Osborne PhD, Phone: [phone] Performing Lab: see note - [facility] LB Vitamin D, 25-Hydroxy Reviewed date:07/25/2024 04:47:33 PM Interpretation: Performing Lab: Notes/Report: [facility] , Vitamin D, 25-Hydroxy 26.6 30.0-100.0 ng/mL Vitamin D deficiency has been defined by the [place] of [employer] and an Endocrine Society practice guideline as a level of serum 25-OH vitamin D less than 20 ng/mL (1,2). The Endocrine Society went on to further define vitamin D insufficiency as a level between 21 and 29 ng/mL (2). 1. IOM ([place] of Medicine). 2010. Dietary reference intakes for calcium and D. [place]: The National Academies Press. 2. Joseph MELO, Barrington FORD, Tequila HO, et al. Evaluation, treatment, and prevention of vitamin D deficiency: an Endocrine Society clinical practice guideline. JCEM. 2011 Aug; 96(7):1911-30. Performed at: - [facility] [address] [id number] Shop Assistant: Moi Osborne PhD, Phone: [phone] Performing Lab: see note - [facility] LB XR chest 2V Reviewed date:07/23/2024 12:49:20 PM Interpretation: Performing Lab: Notes/Report: Source Facility: [place] [address] XRay Report Signed Patient: ESME REYES MR#: [id number] : 1975 Acct:[id number] Age/Sex: 49 / F ADM Date: 07/20/24 Loc: LAB Attending Dr: Maribel Cabezas M.D. Ordering Physician: Maribel Cabezas M.D. Date of Service: 07/20/24 Procedure(s): XR chest 2V Accession Number(s): [id number] cc: Maribel Cabezas M.D. [place] [address] Patient Name: ESME REYES MRN: [id number] date: 1975 Sex: F Assigned Patient Location: LAB Current Patient Location: LAB Accession/Order Number: [id number] Exam Date: 07/20/2024 17:55 Report Date: 07/20/2024 [...] PM Dictation Location: [facility]-20 Electronically authenticated by: [id number] Y Date: 07/20/2024 17:55 Dictated By: Roberto Diego D.O. Signed By: 07/20/241757 DD/ 54 TD/TT: Patient'S Librarian: [place] [address] XRay Report Signed Patient: MIKE REYES MR#: [id number] : 1975 Acct:[id number] Age/Sex: 49 / F ADM Date: 07/20/24 Loc: LAB Attending Dr: Deidre Cabezas M.D. Ordering Physician: Maribel Cabezas M.D. Date of Service: 07/20/24 Procedure(s): XR chest 2V Accession Number(s): [id number] cc: Maribel Cabezas M.D. [place] [address] Patient Name: ESME REYES MRN: [id number] date: 1975 Sex: F Assigned Patient Location: LAB Current Patient Loca tion: LAB Accession/Order Numb er: [id number] Exam Date: 07/20/2024 17:55 Report Date: 07/20/2024 [...] PM Dictation Location: [facility]20 Electronically authenticated by: [id number] Y Date: 07/20/2024 17:55 Dictated By: Flo Diego D.O. Signed By: 07/20/241757 DD/ 54 TD/TT: Patient'S Librarian: XR tibia fibula LT 2V Reviewed date:08/22/2024 09:11:27 PM Interpretation: Performing Lab: Notes/Report: Source Facility: [address] [address] XRay Report Signed Patient: ESME REYES MR#: [id number] : 1975 Acct:[id number] Age/Sex: 49 / F ADM Date: 08/21/24 Loc: RAD Attending Dr: Maribel Cabezas M.D. Ordering Physician: Maribel Cabezas M.D. Date of Service: 08/21/24 Procedure(s): XR tibia fibula LT 2V Accession Number(s): [id number] cc: Maribel Cabezas M.D. [place] [address] Patient Name: ESME REYES MRN: [id number] date: 1975 Sex: F Assigned Patient Location: [facility] Current Patient Location: Accession/Order Number: [id number] Exam Date: 08/22/2024 07:43 Report Date: 08/22/2024 [...] Flower M.D. 08/22/2024 7:58 AM Dictation Location: [place] [address] Electronically authenticated by: [id number] Y Date: 08/22/2024 07:58 Dictated By: Mitzi Flower M.D. Signed By: 08/22/24 0800 DD/ 0758 TD/TT: Patient'S Librarian: [place] [address] XRay Report Signed Patient: MIKE REYES MR#: [id number] : 1975 Acct:[id number] Age/Sex: 49 / F ADM Date: 08/21/24 Loc: RAD Attending Dr: Deidre Cabezas M.D. Ordering Physician: Maribel Cabezas M.D. Date of Service: 08/21/24 Procedure(s): XR tib ia fibula LT 2V Accession Number(s): [id number] cc: Maribel Cabezas M.D. [place] [address] Patient Name: ESME REYES MRN: [id number] date: 1975 Sex: F Assigned Patient Location: [facility] Current Patient Location: Accession/Order Numb er: [id number] Exam Date: 08/22/2024 07:43 Report Date: 08/22/2024 [...] Flower M.D. 08/22/2024 7:58 AM Dictation Location: [place] [address] Electronically authenticated by: [id number] Y Date: 08/22/2024 07:58 Dictated By: Mitzi Flower M.D. Signed By: 08/22/24 0800 DD/ 0758 TD/TT: Patient'S Librarian: XR chest 1V Reviewed date:08/17/2024 07:11:32 PM Interpretation: Performing Lab: Notes/Report: Source Facility: [facility] [place] [address] XRay Report Signed Patient: ESME REYES MR#: [id number] : 1975 Acct:[id number] Age/Sex: 49 / F ADM Date: 08/17/24 Loc: ER Attending Dr: Ordering Physician: Baylee Gallardo M.D. Date of Service: 08/17/24 Procedure(s): XR chest 1V Accession Number(s): [id number] cc: Maribel Cabezas M.D.; Baylee Gallardo M.D. [place] [address] Patient Name: ESME REYES MRN: [id number] date: 1975 Sex: F Assigned Patient Location: ER Current Patient Location: ER Accession/Order Number: [id number] Exam Date: 08/17/2024 14:34 Report Date: 08/17/2024 [...] Jefferson M.D. 08/17/2024 2:35 PM Dictation Location: [place] [address] Electronically authenticated by: [id number] Y Date: 08/17/2024 14:35 Dictated By: Saravanan Jefferson M.D. Signed By: 08/17/241437 DD/ 34 TD/TT: Patient'S Librarian: [place] [address] XRay Report Signed Patient: MIKE REYES MR#: [id number] : 1975 Acct:[id number] Age/Sex: 49 / F ADM Date: 08/17/24 Loc: ER Attending Dr: Ordering Physician: Baylee Gallardo M.D. Date of Service: 08/17/24 Procedure(s): XR chest 1V Accession Number(s): [id number] cc: Maribel Cabezas M.D. ; Baylee Gallardo M.D. [place] [address] Patient Name: ESME REYES MRN: [id number] date: 1975 Sex: F Assigned Patient Location: ER Current Patient Loca tion: ER Accession/Order Numb er: [id number] Exam Date: 08/17/2024 14:34 Report Date: 08/17/2024 [...] Jefferson M.D. 08/17/2024 2:35 PM Dictation Location: [place] [address] Electronically authenticated by: [id number] Y Date: 08/17/2024 14:35 Dictated By: Saravanan Jefferson M.D. Signed By: 08/17/241437 DD/ 34 TD/TT: Patient'S Librarian: ECG 12 lead Reviewed date:08/22/2024 09:11:27 PM Interpretation: Performing Lab: Notes/Report: Source Facility: [place] [address] [place] [address] Electrocardiograph Report Signed Patient: ESME REYES MR#: [id number] : 1975 Acct:[id number] Age/Sex: 49 / F ADM Date: 08/17/24 Loc: ER Attending Dr: Ordering Physician: Baylee Gallardo M.D. Date of Service: 08/17/24 Procedure(s): ECG 12 lead Accession Number(s): [id number] cc: 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 Signed By: 08/22/24 1308 DD/ 1329 TD/TT: Patient'S Librarian: [place] [address] Electrocardiograph Report Signed Patient: MIKE REYES MR#: [id number] : 1975 Acct:[id number] Age/Sex: 49 / F ADM Date: 08/17/24 Loc: ER Attending Dr: Ordering Physician: Baylee Gallardo M.D. Date of Service: 08/17/24 Procedure(s): ECG 12 lead Accession Number(s): [id number] cc: 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 Signed By: 08/22/24 1308 DD/ 1329 TD/TT: Patient'S Librarian: Urine Culture - [facility] Reviewed date:08/22/2024 09:11:27 PM Interpretation: Performing Lab: Notes/Report: [facility] , Urine Culture - [facility] See Below For Report Urine Culture - [facility] <9,000 colonies/ml mixed Urine Culture - [facility] bacterial skin contaminants Urine Culture - [facility] <9,000 colonies/ml mixed Urine Culture - [facility] 2 Days Urine Culture - [facility] <9,000 colonies/ml mixed Urine Culture - [facility] Urine Culture - [facility] <9,000 colonies/ml mixed Urine Culture - [facility] Testing performed a [facility] Urine Culture - [facility] <9,000 colonies/ml mixed Urine Culture - [facility] [address] [place] [address] Urine Culture - [facility] <9,000 colonies/ml mixed Performing Lab: see note ML - [facility] LB UA RANDOM W or MICROSCOPIC Reviewed date:08/17/2024 07:11:32 PM Interpretation: Performing Lab: Notes/Report: [facility] , Color Urine YELLOW YELLOW Clarity Urine CLEAR CLEAR Specific [place] Urine 1.025 1.005-1.025 pH Urine 6.0 5.0-9.0 [...] Hyaline Casts Urine RARE Urine Culture Indicated [facility] Performing Lab: see note ML - [facility] LB PROF CHEM 8 (BAS METB) Reviewed date:08/17/2024 07:11:32 PM Interpretation: Performing Lab: Notes/Report: [facility] , Sodium 142 136-145 mmol/L Potassium [...] mg/dL Performing Lab: see note ML - [facility] LB CBC AUTO DIFF Reviewed date:08/17/2024 07:11:32 PM Interpretation: Performing Lab: Notes/Report: [facility] , White Blood Count 10.4 4.0-11.0 [...] Performing Lab: see note ML - [facility] LB FOLATE Reviewed date:07/23/2024 12:49:20 PM Interpretation: Performing Lab: Notes/Report: [facility] , Folate 4.60 8.60-58.90 ng/mL Performing Lab: see note ML - [facility] UA (CLEAN or CATCH) OB NURSE or M ICRO IF IND. Reviewed date:04/05/2024 12:43:55 PM Interpretation: Performing Lab: Notes/Report: [facility] , Color Urine LT. YELLOW YELLOW Clarity Urine CLEAR CLEAR Specific [place] Urine 1.015 1.005-1.025 pH Urine 6.0 5.0-9.0 Protein Urine NEGATIVE NEG/TRACE mg/dL Glucose Urine UA NEGATIVE NEGATIVE mg/dL Bilirubin Urine NEGATIVE NEGATIVE Ketones Urine NEGATIVE NEGATIVE mg/dL Blood Urine NEGATIVE NEGATIVE Nitrite Urine NEGATIVE NEGATIVE Urobilinogen Urine 1.0 0.2-1.0 EU/dL Leukocyte Esterase Urine NEGATIVE NEGATIVE Urine Microscopic Indicated NO Performing Lab: see note ML - [facility] FERRITIN Reviewed date:07/23/2024 12:49:20 PM Interpretation: Performing Lab: Notes/Report: [facility] , Ferritin 18.0 8.0-252.0 ng/mL Performing Lab: see note - [facility] LB Vitamin B12 Reviewed date:07/23/2024 12:49:20 PM Interpretation: Performing Lab: Notes/Report: [facility] , Vitamin B12 080 757-3159 pg/mL Performed at: [facility] [address] [place], [place] [id number] Shop Assistant: Mio Osborne PhD, Phone: [phone] Performing Lab: see note LC - [facility] LB Reason For Referral Diagnosis 1 Fracture of metatars al bone (S92.309A) Referral Organization [facility] Referring Provider First Name Davey Referring Provider Last Name [facility] Referring Provider [facility] Referred Provider Romero Mueller Referred Provider Specialty Orthopedic S urgery Referral Priority Routine Diagnosis 1 Weakness (R53.1) Referral Organization [facility] Referring Provider First Name Davey Referring Provider Last Name [facility] Referring Provider [facility] Referred Provider [facility], Physical Therap y Referred Provider Specialty Physical The rapist Referral Priority Routine Reason Needs EGD and Colono scopy please! Diagnosis 1 Anemia (D64.9) Referral Organization [facility] Referring Provider First Name Davey Referring Provider Last Name [facility] Referring Provider [facility] Referred Provider Santos Freeman Referred Provider Specialty General Surg santana Referral Priority Routine Reason PT and aquatic thera py - eval an dtreat Diagnosis 1 Weakness (R53.1) Referral Organization [facility] Referring Provider First Name Davey Referring Provider Last Name [facility] Referring Provider [facility] Referred Provider Shawn Chawla PT, Nor walk Referred Provider Specialty Physical The rapist Referral Priority Routine Medications Medication SIG (Take, Route, Frequency, Duration) Notes Start Date End Date Status levoFLOXacin 500 MG 1 tablet Orally Once a day for 10 day(s) 08/29/2024 Active chlordiazePOXIDE HCl 10 MG 1 capsule Orally tid PRN for 7 days needs to last a week 09/12/2024 Active Pyridium 200 MG 1 tablet after meals Orally Three times a day for 2 days 08/29/2024 Active Protonix 40 MG 1 tablet Orally Once a day for 30 days 10/26/2023 Active BIPAP -- as directed Active valACYclovir HCl 500 MG 1 tablet Orally tid for 10 days 07/20/2024 Active Semaglutide 2.268 mg/0.63 mL 2.268 mg/0.63 mL 0.63 mL Subcutaneous Once weekly for 30 days Prefer 3 drug combined approach by injection for weight loss. 08/29/2024 Active CeleBREX 100 MG 1 capsule with food Orally Once a day for 30 days 08/21/2024 Active Ventolin HFA 108 (90 Base) MCG/ACT 1 puff as needed Inhalation every 4 hrs for 30 days PRN Active Doxepin HCl 50 MG 1 capsule at bedtime Orally Once a day for 30 days 05/22/2024 Active Haloperidol 2 MG 1 tablet Orally three times daily for 30 days Active Levothyroxine Sodium 100 MCG 1 tablet in the morning on an empty stomach Orally Once a day for 30 days Active Ondansetron 4 MG 1 tablet on the tongue and allow to dissolve Orally qid PRN 06/28/2024 Active Paxil 40 MG 1 tablet in the morning Orally Once a day for 30 days Active Promethazine HCl 25 MG 1 tablet as neede d Orally q6h for 30 days PRN 02/22/2023 Active Social History Tobacco Use: Social History [...] Problem Status W/U Status Risk Notes Problem [id number] 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 Problem Hypoglycemia (967798827) Hypoglycemia, unspecified (E16.2) Active confirmed Problem Dehydration (80518622) Dehydration (E86.0) Active confirmed Problem Palpitations (63599996) Palpitations (R00.2) Active confirmed Problem Weakness (39293973) Weakness (R53.1) Active con firmed Problem History of cardiac catheterization (69920285100295) History of cardiac catheterization (V45.89) Active confirmed Problem Obesity (229914555) Obesity (E66.9) Active conf irmed Problem Anxiety (66390545) Anxiety (F41.9) Active confi rmed Problem Edema (38885132) Edema (R60.9) Active confirmed Problem History of cardiac catheterization (39365449335754) H/O cardiac catheterization (V45.89) Active confirmed Problem Anemia (642019082) Anemia (D64.9) Active confir med Problem Dyspnea (967386144) Dyspnea (R06.00) Active con firmed Problem Sleep apnea (98147977) Sleep apnea (G47.30) Active confirmed Problem CVA - Cerebrovascular accident (351845645) CVA (cerebral vascular accident) (I63.9) Active confirmed Problem Insomnia (308171136) Insomnia (G47.00) Active confirmed Problem Hiatal hernia (09710090) Hiatal hernia (K44.9) Active confirmed Problem Hip pain (19200179) Hip pain (M25.559) Active c onfirmed Problem Syncope (676283405) Syncope (R55) Active confir med Problem Vitamin D deficiency (54757530) Vitamin D deficiency (E55.9) Active confirmed Problem Alcohol abuse (40051401) Alcohol abuse (F10.10) Active confirmed Problem Generalized anxiety disorder (17798447) ESTRELLITA (generalized anxiety disorder) (F41.1) Active confirmed Problem Arthralgia (45412378) Arthralgia (M25.50) Active confirmed Problem Pain of right knee region (finding) (126465919308663) Knee pain, right (M25.561) Active confirmed Problem Dysmenorrhea (606205438) Dysmenorrhea (N94.6) Active confirmed Problem Acute bronchitis (76056240) Acute bronchitis (J20.9) Active confirmed Problem Leg pain (67898920) Leg pain (M79.606) Active c onfirmed Problem Paresthesia (01842246) Paresthesia (R20.2) Active confirmed Problem Dysphagia (79485609) Dysphagia (R13.10) Active confirmed Problem Acquired hypothyroidism (967028558) Acquired hypothyroidism (E03.9) Active confirmed Problem Cellulitis (448160306) Cellulitis (L03.90) Active confirmed Problem Plantar fasciitis (097970208) Plantar fasciitis (M72.2) Active confirmed Problem Esophageal stricture (68093331) Esophageal stricture (K22.2) Active confirmed Problem Skin sensation disturbance (64874294) Arm paresthesia, left (R20.2) Active confirmed Problem Dyshidrotic eczema (042706962) Dyshidrotic eczema (L30.1) Active confirmed Problem Diverticulitis of colon (581742721) Diverticulitis of colon (K57.32) Active confirmed Problem Menometrorrhagia (792258114) Menometrorrhagia (N92.1) Active confirmed Problem Type II diabetes mellitus without complication (844894146) Type 2 diabetes mellitus without complication (E11.9) Active confirmed Problem 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 confirmed Problem Chronic lymphocytic thyroiditis (04000560) Chronic lymphocytic thyroiditis (E06.3) Active confirmed Problem Suicidal ideation (1135817) Suicidal ideation (R45.851) Active confirmed Problem Gastro-esophageal reflux disease (132685522) Gastro-esophageal reflux disease (K21.9) Active confirmed Problem Fracture of metatarsal bone (742980299) Fracture of metatarsal bone (S92.309A) Active confirmed Problem Postprocedural states (868439975) Other specified postprocedural states (Z98.890) Active confirmed Problem Moderate dehydration (5862972446755) Dehydration, moderate (E86.0) Active confirmed Problem Follicular thyroid carcinoma (115358916) Follicular thyroid carcinoma (C73) Active confirmed Problem Diabetes mellitus (78297829) Diabetes mellitus (E11.9) Active confirmed Problem Ureteric stone (88513018) Calculus, ureteral (N20.1) Active confirmed Vital Signs Heart Rate 81 /min 07/20/2024 Temperature 99.5 degrees Fahrenheit 07/20/2024 Oximetry 99 % 07/20/2024 Blood pressure diastolic 82 mm Hg 08/29/2024 Height 62.5 in 08/29/2024 Blood pressure systolic 124 mm Hg 08/29/2024 Weight 269.0 lbs 08/29/2024 BMI 48.41 kg/m2 08/29/2024 Procedures Procedure Date Ordered Date Performed Result Body Sit e EGD w/Colonoscopy 07/24/2024 N/A Encounters Encounter Location Date Provider Diagnosis [facility] [address] [place] [address] 09/01/2024 Davey Hoy Leg pain M79.606 [facility] [address] [place] [address] 09/12/2024 Davey Hoy Leg pain M79.606 and Frequency of micturition R35.0 [facility] [address] [place] [address] 08/03/2024 Davey Hoy Palpitations R00.2 [facility] [address] [place] [place] [address] 08/09/2024 Davey Hoy [facility] [address] [place] [place] [address] 08/15/2024 Davey Hoy Palpitations R00.2 [facility] [address] [place] [place] [address] 08/21/2024 Davey Hoy [facility] [address] [facility] [place] [address] 08/22/2024 Davey Hoy [facility] [address] [facility] [address] [place] [address] 08/29/2024 Davey Hoy Weakness R53.1 [facility] [address] [facility] [place] [address] 07/23/2024 Davey Hoy Peace's thyroidi tis E06.3 ; Palpitations R00.2 and Anemia D64.9 [facility] [address] [place] [place] [address] 07/24/2024 Davey Hoy Frequency of micturition R35.0 [facility] [address] [place] [address] 07/24/2024 Davey Hoy [facility] [address] [facility] [address] [place] [address] 07/24/2024 Davey Hoy Palpitations R00.2 [facility] [address] [place] [address] 07/24/2024 Davey Hoy Esophageal stricture K22.2 and Diverticulitis of colon K57.32 [facility] [address] [facility] [place] [address] 07/25/2024 Davey Hoy [facility] [address] [place] [place] [address] 07/04/2024 Davey Hoy [facility] [address] [place] [address] 07/05/2024 Davey Hoy Palpitations R00.2 [facility] [address] [place] [address] 07/05/2024 Davey Hoy Palpitations R00.2 [facility] [address] [place] [address] 07/11/2024 Davey Hoy [facility] [address] [place] [address] 2024 Davey Hoy [facility] [address] [place] [address] 07/14/2024 Davey Hoy Palpitations R00.2 [facility] [address] [place] [address] 06/01/2024 Davey Hoy Palpitations R00.2 [facility] [address] [place] [address] 06/05/2024 Davey Hoy [facility] [address] [place] [address] 06/06/2024 Davey Hoy Fracture of metatars al bone S92.309A [facility] [address] [place] [address] 06/07/2024 Davey Hoy Palpitations R00.2 [facility] [address] [facility] [place] [address] 06/19/2024 Davey Hoy Palpitations R00.2 [facility] [address] [place] [address] 06/28/2024 Davey Hoy Palpitations R00.2 [facility] [address] [place] [address] 05/23/2024 Davey Hoy [facility] [address] [place] [address] 05/23/2024 Davey Hoy [facility] [address] [place] [address] 05/29/2024 Davey Hoy Palpitations R00.2 a nd Frequency of micturition R35.0 [facility] [address] [place] [address] 05/30/2024 Davey robert [facility] [address] [place] [address] 05/30/2024 Dvaey y [facility] [address] [place] [address] 06/01/2024 Davey Hoy Palpitations R00.2 [facility] [address] [place] [place] [address] 09/28/2023 Davey Hoy Fatigue R53.83 [facility] [address] [place] [place] [address] 10/26/2023 Davey y [facility] [address] [place] [address] 12/17/2023 Davey [facility] [address] [place] [address] 01/18/2024 Davey [facility] [address] [place] [place] [address] 04/03/2024 Davey [facility] [address] [place] [address] 04/03/2024 Davey Hoy [facility] [address] 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 ; Acute bronchitis J20.9 and Weakness R53.1 [facility] [address] [place] [place] [address] 08/21/2024 Davey Hoy Leg pain M79.606 and Weakness R53.1 [facility] [address] [place] [address] 12/06/2023 Adrienne Aric Urine abnormality R82.90 ; Loose stools R19.5 and Wellness examination Z00.00 [facility] [address] [place] [address] 05/22/2024 Davey Hoy Palpitations R00.2 ; Insomnia G47.00 ; ESTRELLITA (generalized anxiety disorder) F41.1 and Right foot pain M79.671 Assessments Encounter Date Diagnosis (ICD Code) Assessment Notes Treatment Notes Treatment Clinical Notes Section Notes 05/22/2024 Palpitations (ICD-10 - R00.2) 05/22/2024 Insomnia (ICD-10 - G47.00) 07/20/2024 Anemia (ICD-10 - D64.9) 07/20/2024 Vitamin D deficiency (ICD-10 - E55.9) 08/21/2024 Leg pain (ICD-10 - M79.606) 08/21/2024 Weakness (ICD-10 - R53.1) 08/29/2024 Urinary frequency (ICD-10 - R35.0) 08/29/2024 Acute UTI (ICD-10 - N39.0) 09/23/2023 Anemia (ICD-10 - D64.9) 09/23/2023 Weakness [...] R00.2) 07/23/2024 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) 07/24/2024 Frequency of micturition (ICD-10 - R35.0) 07/24/2024 Palpitations (ICD-10 - R00.2) 07/24/2024 Esophageal stricture (ICD-10 - K22.2) 07/24/2024 Diverticulitis of colon (ICD-10 - K57.32) 08/03/2024 Palpitations (ICD-10 - R00.2) 08/15/2024 Palpitations (ICD-10 - R00.2) 08/29/2024 Weakness (ICD-10 - R53.1) 09/01/2024 Leg pain (ICD-10 - M79.606) 09/12/2024 Leg pain (ICD-10 - M79.606) 12/06/2023 Urine abnormality (ICD-10 - R82.90) 12/06/2023 Loose stools (ICD-10 - R19.5) 09/28/2023 Fatigue (ICD-10 - R53.83) 05/29/2024 Palpitations (ICD-10 - R00.2) 05/29/2024 Frequency of micturition (ICD-10 - R35.0) 12/06/2023 Wellness examination (ICD-10 - Z00.00) requesting labs 09/12/2024 Frequency of micturition (ICD-10 - R35.0) 07/23/2024 Palpitations (ICD-10 - R00.2) 09/23/2023 B12 [...] BLOOD 06/19/2022 Urinalysis Microscopic 02/22/2023 B12/FOLATE 05/18/2023 UA DIP NONAUTO WO MICRO (13932) - IN OFF ICE 08/29/2024 THIAMIN VITAMIN B1 09/28/2023 EGD w/Colonoscopy 07/24/2024 Urine Culture 12/06/2023 RHEUMATOID PANEL 07/20/2024 RIBOFLAVIN VITAMN B2 09/28/2023 Sleep study - Diagnostic Polysonogram COMPREHENSIVE METABOLIC PROFILE WITH GFR 05/13/2023 OCCULT BLOOD, FECAL, IMMUNOASSAY 024 C PEPTIDE 06/15/2022 Vitamin B7 Biotin 09/28/2023 C DIFF TOX PCR STOOL 12/06/2023 CBC W/AUTO DIFF 09/23/2023 CBC W/AUTO DIFF 05/13/2023 CBC W/AUTO DIFF 03/31/2023 VITAMIN B5 (PANTOTHENIC [...] Date [employer] [place] MEDICA[employer] [address] [facility] [address] [place] [address] [phone] [id number] Esme Reyes Self - patient is the [...]
--- OUTSIDE RECORDS SUMMARY | 2024-09-13 10:45 | XMS_ITS | Encounter Summary ---
Demographics Address [address] [place] [address] Home Phone Mobile Phone Email Address Preferred Language ENG Marital Status Single Zoroastrianism Affiliation Unknown Race White Ethnic Group Not or Lati no Author Organization [facility] Address [address] [place] [address] Care Team Providers Care Circular Knitter Name Role Phone Farhat Cabezas MD Primary Care Provider [phone] Farhat Cabezas MD Unavailable [phone] Farhat Cbaezas MD Unavailable [phone] Source Comments In the event this information is protected by the Federal Confidentiality of Alcohol and Drug AbusePatient Records regulations: The Federal rules restrict any use of the information to criminally investigate or prosecute any alcohol or drug abuse patient.[facility] Encounter Details Date Type Department Care Team (Late st Contact Info) Description 08/25/2023 Patient Msg CB/Gynecology [address] [address] [place] [address] [place] [address] Appointment Request Social History Tobacco [...] is lower risk 2 12/21/2022 Data from: https://www.neighborhoodatlas.medicine.[facility]/. Last address used for [...] PM EDT [facility] Diabetic Education [facility] [address] [place] [address] [place] [address] [place] [address] Type 2 diabetes mellitus with hyperglycemia, with long-term current use of insulin (HCC) [E11.65, Z79.4] 11/20/2024 1:00 PM EDT [facility] Endocrinology [address] [place] [address] Valdez Suarez MD [address] [place] [address] [address] [place], [place] [id number] follow up in 6 months 01/03/2025 10:00 AM EST [facility] Endocrinology [address] [place] [address] Greg Nina APRN.[facility] [address] [place], [place] [phone] diabetes follow up in 3 months virtually. documented as of this encounter Visit Diagnoses Not on filedocumented in this encounter Care Teams Circular Knitter Relationship Specialty Start Date End Date Farhat Cabezas MD PCP - General Family Medicine 01/13/11 Farhat Cabezas MD Referring Family Medicine 01/08/22 Farhat Cabezas MD [address] [place] [address] Referring Family Medicine 07/26/24 documented as of this encounter
--- OUTSIDE RECORDS SUMMARY | 2024-09-13 10:45 | XMS_ITS | Encounter Summary ---
Demographics Address [address] [facility] [place] [address] Home Phone Mobile Phone Email Address Preferred Language ENG Marital Status Single Scientologist Affiliation Unknown Race White Ethnic Group Not or Lati no Author Organization [facility] Address [facility] [place] [address] Care Team Providers Care Real Estate Legal Assistant Name Role Phone Farhat Cabezas MD Primary Care Provider [phone] Farhat Cabezas MD Unavailable [phone] Farhat Cabezas MD Unavailable [phone] Source Comments In the event this information is protected by the Federal Confidentiality of Alcohol and Drug AbusePatient Records regulations: The Federal rules restrict any use of the information to criminally investigate or prosecute any alcohol or drug abuse patient.[facility] Encounter Details Date Type Department Care Team (Late st Contact Info) Description 09/27/2023 Get Medical Advice Neurology [address] [place] [address] Thaddeus Diggs MD [address] [place] [address] Mri Social History Tobacco Use [...] risk 2 12/21/2022 Data from: https://www.neighborhoodatlas.medicine.[facility]/. Last address used for calculation [...] Description 09/13/2024 2:00 PM EDT [facility] [address] [place] [address] Ignacio Garcia, SABIHA [address] [place] [address] Type 2 diabetes mellitus with hyperglycemia, with long-term current use of insulin (HCC) [E11.65, Z79.4] 11/20/2024 1:00 PM EDT [facility] Endocrinology [address] [place] [address] Valdez Suarez MD [address] [place] [address] [address] [place], [place] [phone] follow up in 6 months 01/03/2025 10:00 AM EST [facility] Endocrinology [address] [place] [address] Greg Nina APRN.[facility] [address] [place], [place] [phone] diabetes follow up in 3 months virtually. documented as of this encounter Visit Diagnoses Not on filedocumented in this encounter Care Teams Real Estate Legal Assistant Relationship Specialty Start Date End Date Farhat Cabezas MD PCP - General Family Medicine 01/13/11 Farhat Cabezas MD Referring Family Medicine 01/08/22 Farhat Cabezas MD [address] [place] [address] Referring Family Medicine 07/26/24 documented as of this encounter
--- OUTSIDE RECORDS SUMMARY | 2024-09-13 10:45 | XMS_ITS | Encounter Summary ---
Demographics Address [address] [place] [place] [address] Home Phone Mobile Phone Email Address Preferred Language ENG Marital Status Single Tenriism Affiliation Unknown Race White Ethnic Group Not or Lati no Author Organization [facility] Address [address] [place] [address] Care Team Providers Care Ship Joiner Name Role Phone Farhat Cabezas MD Primary Care Provider [phone] Farhat Cabezas MD Unavailable [phone] Farhat Cabezas MD Unavailable [phone] Source Comments In the event this information is protected by the Federal Confidentiality of Alcohol and Drug AbusePatient Records regulations: The Federal rules restrict any use of the information to criminally investigate or prosecute any alcohol or drug abuse patient.[facility] Encounter Details Date Type Department Care Team (Late st Contact Info) Description 03/31/2016 Get Medical Advice General Surgery [address] [place] [address] Rachel Yi MD [address] [place] [address] RE: Non-Urgent Medical Question Social [...] PM EDT [facility] Diabetic Education [facility] [address] [place] [address] [place] [address] [place] [address] Type 2 diabetes mellitus with hyperglycemia, with long-term current use of insulin (HCC) [E11.65, Z79.4] 11/20/2024 1:00 PM EDT [facility] Endocrinology [address] [place] [address] Valdez Suarez MD [address] [place] [address] [address] [place], [place] [phone] follow up in 6 months 01/03/2025 10:00 AM EST [facility] Endocrinology [address] [place] [address] Greg Nina, MARITZA.[employer] [address] [place] [address] diabetes follow up in 3 months virtually. documented as of this encounter Visit Diagnoses Not on filedocumented in this encounter Care Teams Ship Joiner Relationship Specialty Start Date End Date Farhat Cabezas MD PCP - General Family Medicine 01/13/11 Farhat Cabezas MD Referring Family Medicine 01/08/22 Farhat Cabezas MD [address] [place] [address] Referring Family Medicine 07/26/24 documented as of this encounter
--- OUTSIDE RECORDS SUMMARY | 2024-09-13 10:45 | XMS_ITS | Encounter Summary ---
Demographics Address [address] [place] [address] Home Phone Mobile Phone Email Address Preferred Language ENG Marital Status Single Zoroastrianism Affiliation Unknown Race White Ethnic Group Not or Lati no Author Organization [facility] Address [address] [place] [address] Care Team Providers Care Visual Associate Name Role Phone Farhat Cabezas MD Primary Care Provider [phone] Farhat Cabezas MD Unavailable [phone] Farhat Cabezas MD Unavailable [phone] Source Comments In the event this information is protected by the Federal Confidentiality of Alcohol and Drug AbusePatient Records regulations: The Federal rules restrict any use of the information to criminally investigate or prosecute any alcohol or drug abuse patient.[facility] Encounter Details Date Type Department Care Team (Late st Contact Info) Description 07/04/2024 [place] [address] Provider, [facility] Phone call fllow up Social [...] is lower risk 7 03/07/2024 Data from: https://www.neighborhoodatlas.[facility]/ . Last address used for calculation [address] 03/07/2024 Comments No Sex and [...] [facility] Diabetic Education [facility] [address] [place], [place] [address] [place] [address] [place] [address] Type 2 diabetes mellitus with hyperglycemia, with long-term current use of insulin (HCC) [E11.65, Z79.4] 11/20/2024 1:00 PM EDT [facility] Endocrinology [address] [place] [address] Valdez Suarez MD [address] [place] [address] [address] [place], [place] [phone] follow up in 6 months 01/03/2025 10:00 AM EST [facility] Endocrinology [address] [place] [address] Greg Nina APRN.[employer]AT[employer] STAR[employer] [address] [place], [place] [phone] diabetes follow up in 3 months virtually. documented as of this encounter Visit Diagnoses Not on filedocumented in this encounter Care Teams Visual Associate Relationship Specialty Start Date End Date Farhat Cabezas MD PCP - General Family Medicine 01/13/11 Farhat Cabezas MD Referring Family Medicine 01/08/22 Farhat Cabezas MD [address] [place] [address] Referring Family Medicine 07/26/24 documented as of this encounter
--- OUTSIDE RECORDS SUMMARY | 2024-09-13 10:45 | XMS_ITS | Encounter Summary ---
Demographics Address [address] [place] [address] Home Phone Mobile Phone Email Address Preferred Language ENG Marital Status Single Scientology Affiliation Unknown Race White Ethnic Group Not or Lati no Author Organization [facility] Address [address] [place] [address] Care Team Providers Care Manager Activities Name Role Phone Farhat Cabezas MD Primary Care Provider [phone] Farhat Cabezas MD Unavailable [phone] Farhat Cabezas MD Unavailable [phone] Source Comments In the event this information is protected by the Federal Confidentiality of Alcohol and Drug AbusePatient Records regulations: The Federal rules restrict any use of the information to criminally investigate or prosecute any alcohol or drug abuse patient.[facility] Encounter Details Date Type Department Care Team (Late st Contact Info) Description 11/16/2023 [place] [address] Provider, [facility]cf MRI Screening Questionnaire Completion Required [...] lower risk 2 12/21/2022 Data from: https://www.neighborhoodatlas.[facility]/. Last address used for calculation [address] [...] Contact Info) Description 09/13/2024 2:00 PM EDT [facility] Diabetic Education [facility] [address] [place], [place] [address] Ignacio Garcia, SABIHA [address] [place] [address] Type 2 diabetes mellitus with hyperglycemia, with long-term current use of insulin (HCC) [E11.65, Z79.4] 11/20/2024 1:00 PM EDT [facility] Endocrinology [address] [place] [address] Valdez Suarez MD [address] [place] [address] [place] [address] follow up in 6 months 01/03/2025 10:00 AM EST [facility] Endocrinology [address] [place] [address] Greg Nina, MARITZA.SUPPLY CHAIN MANAGER [address] [place], [place] [address]244[address] diabetes follow up in 3 months virtually. documented as of this encounter Visit Diagnoses Not on filedocumented in this encounter Care Teams Manager Activities Relationship Specialty Start Date End Date Farhat Cabezas MD PCP - General Family Medicine 01/13/11 Farhat Cabezas MD Referring Family Medicine 01/08/22 Farhat Cabezas MD [address] [place] [address] Referring Family Medicine 07/26/24 documented as of this encounter
--- OUTSIDE RECORDS SUMMARY | 2024-09-13 10:45 | XMS_ITS | Encounter Summary ---
Demographics Address [address] [place] [address] Home Phone Mobile Phone Email Address Preferred Language ENG Marital Status Single Gnosticist Affiliation Unknown Race White Ethnic Group Not or Lati no Author Organization [facility] Address [address] [place] [address] Care Team Providers Care Special Education Math Teacher Name Role Phone Farhat Cabezas MD Primary Care Provider [phone] Farhat Cabezas MD Unavailable [phone] Farhat Cabezas MD Unavailable [phone] Source Comments In the event this information is protected by the Federal Confidentiality of Alcohol and Drug AbusePatient Records regulations: The Federal rules restrict any use of the information to criminally investigate or prosecute any alcohol or drug abuse patient.[facility] Encounter Details Date Type Department Care Team (Late st Contact Info) Description 07/04/2024 Patient Msg Neurology [address] [place] [address] Provider, Ccf from Dr Duenas [...] risk 7 03/07/2024 Data from: https://www.neighborhoodatlas.[facility]/ . Last address used for calculation [...] Info) Description 09/13/2024 2:00 PM EDT [facility] Diabetic Education [facility] [address] [place] [address] [place] [address] [place], [place] [phone] Type 2 diabetes mellitus with hyperglycemia, with long-term current use of insulin ([facility]) [E11.65, Z79.4] 11/20/2024 1:00 PM EDT [facility] Endocrinology [address] [place] [address] Valdez Suarez MD [address] [place] [address] [address] [place], [place] [phone] follow up in 6 months 01/03/2025 10:00 AM EST [facility] Endocrinology [address] [place] [address] Greg Nina APRN.SHOE TREER [address] [place] [address] diabetes follow up in 3 months virtually. documented as of this encounter Visit Diagnoses Not on filedocumented in this encounter Care Teams Special Education Math Teacher Relationship Specialty Start Date End Date Farhat Cabezas MD PCP - General Family Medicine 01/13/11 Farhat Cabezas MD Referring Family Medicine 01/08/22 Farhat Cabezas MD [address] [place] [address] Referring Family Medicine 07/26/24 documented as of this encounter
--- OUTSIDE RECORDS SUMMARY | 2024-09-13 10:45 | XMS_ITS | Encounter Summary ---
Demographics Address [address] [facility] [place] [address] Home Phone Mobile Phone Email Address Preferred Language ENG Marital Status Single Uatsdin Affiliation Unknown Race White Ethnic Group Not or Lati no Author Organization [facility] Address [address] [place] [address] Care Team Providers Care Sales Promotion Director Name Role Phone Farhat Cabezas MD Primary Care Provider [phone] Farhat Cabezas MD Unavailable [phone] Farhat Cabezas MD Unavailable [phone] Source Comments In the event this information is protected by the Federal Confidentiality of Alcohol and Drug AbusePatient Records regulations: The Federal rules restrict any use of the information to criminally investigate or prosecute any alcohol or drug abuse patient.[facility] Encounter Details Date Type Department Care Team (Late st Contact Info) Description 12/23/2015 Get Medical Advice General Surgery [address] [place] [address] Rachel Yi MD [address] [place] [address] RE: Test Result Question Social [...] [facility] Diabetic Education [facility] [address] [place] [address] [place] [address] [place] [address] Type 2 diabetes mellitus with hyperglycemia, with long-term current use of insulin (HCC) [E11.65, Z79.4] 11/20/2024 1:00 PM EDT [facility] Endocrinology [address] [place] [address] Valdez Suarez MD [address] [place] [address] [address] [place], [place] [phone] follow up in 6 months 01/03/2025 10:00 AM EST [facility] Endocrinology [address] [place] [address] Greg Nina, MARITZA.YOUTH DEVELOPMENT SPECIALIST [address] [place], [place] 2338[address] diabetes follow up in 3 months virtually. documented as of this encounter Visit Diagnoses Not on filedocumented in this encounter Care Teams Sales Promotion Director Relationship Specialty Start Date End Date Farhat Cabezas MD PCP - General Family Medicine 01/13/11 Farhat Cabezas MD Referring Family Medicine 01/08/22 Farhat Cabezas MD [address] [place] [address] Referring Family Medicine 07/26/24 documented as of this encounter
--- OUTSIDE RECORDS SUMMARY | 2024-09-13 10:45 | XMS_ITS | Encounter Summary ---
Demographics Address [address] [place] [address] Home Phone Mobile Phone Email Address Preferred Language ENG Marital Status Single Mosque Affiliation Unknown Race White Ethnic Group Not or Lati no Author Organization [facility] Address [address] [place] [address] Care Team Providers Care Kettle Chipper Name Role Phone Farhat Cabezas MD Primary Care Provider [phone] Farhat Cabezas MD Unavailable [phone] Farhat Cabezas MD Unavailable [phone] Source Comments In the event this information is protected by the Federal Confidentiality of Alcohol and Drug AbusePatient Records regulations: The Federal rules restrict any use of the information to criminally investigate or prosecute any alcohol or drug abuse patient.[facility] Encounter Details Date Type Department Care Team (Late st Contact Info) Description 08/06/2020 Abstract General Surgery [address] [place] [address] Rachel Yi MD [address] [place] [address] Social History Tobacco Use Types [...] on file 01/16/2020 Data from: https://www.neighborhoodatlas.medicine.[facility]/. Last address used for [...] Info) Description 09/13/2024 2:00 PM EDT [facility] Education [facility] [address] [place] [address] [place] [address] [place] [address] Type 2 diabetes mellitus with hyperglycemia, with long-term current use of insulin (HCC) [E11.65, Z79.4] 11/20/2024 1:[address] [facility] Endocrinology [address] [place] [phone] Valdez Suarez MD [address] [place] [address] [address] [place], [place] [id number] follow up in 6 months 01/03/2025 10:[address] [facility] Endocrinology [address] [place] [address] Greg Nina APRN.[facility] [address] [place], [place] 2022539 diabetes follow up in 3 months virtually. documented as of this encounter Visit Diagnoses Not on filedocumented in this encounter Care Teams Kettle Chipper Relationship Specialty Start Date End Date Farhat Cabezas MD PCP - General Family Medicine 01/13/11 Farhat Cabezas MD Referring Family Medicine 01/08/22 Farhat Cabezas MD [address] [place] [address] Referring Family Medicine 07/26/24 documented as of this encounter
--- OUTSIDE RECORDS SUMMARY | 2024-09-13 10:45 | XMS_ITS | Encounter Summary ---
Demographics Address [address] [place] [address] Home Phone Mobile Phone Email Address Preferred Language ENG Marital Status Single Denominational Affiliation Unknown Race White Ethnic Group Not or Lati no Author Organization [facility] Address [address] [place] [address] Care Team Providers Care Hog Raiser Name Role Phone Farhat Cabezas MD Primary Care Provider [phone] Farhat Cabezas MD Unavailable [phone] Farhat Cabezas MD Unavailable [phone] Source Comments In the event this information is protected by the Federal Confidentiality of Alcohol and Drug AbusePatient Records regulations: The Federal rules restrict any use of the information to criminally investigate or prosecute any alcohol or drug abuse patient.[facility] Encounter Details Date Type Department Care Team (Late st Contact Info) Description 10/25/2023 Get Medical Advice Gastroenterology [address] [address] Adilene Morgan APRN.[facility] [address] [place] [address] Question Social History Tobacco Use [...] risk 2 12/21/2022 Data from: https://www.neighborhoodatlas.medicine.[facility]/. Last address used for [...] Contact Info) Description 09/13/2024 2:00 PM EDT [facility] Diabetic Education [facility] [address] [place] [address] [place] [address] [place] [address] Type 2 diabetes mellitus with hyperglycemia, with long-term current use of insulin (HCC) [E11.65, Z79.4] 11/20/2024 1:00 PM EDT [facility] Endocrinology [address] [place] [address] Valdez Suarez MD [address] [place] [address] [address] [place], [place] [phone] follow up in 6 months 01/03/2025 10:00 AM EST [facility] Endocrinology [address] [place] [address] Greg Nina APRN.[facility] [address] [place], [place] 5237239 diabetes follow up in 3 months virtually. documented as of this encounter Visit Diagnoses Not on filedocumented in this encounter Care Teams Hog Raiser Relationship Specialty Start Date End Date Farhat Cabezas MD PCP - General Family Medicine 01/13/11 Farhat Cabezas MD Referring Family Medicine 01/08/22 Farhat Cabezas MD [address] [place] [address] Referring Family Medicine 07/26/24 documented as of this encounter
--- OUTSIDE RECORDS SUMMARY | 2024-09-13 10:45 | XMS_ITS | Encounter Summary ---
Demographics Address [address] [place] [address] Home Phone Mobile Phone Email Address Preferred Language ENG Marital Status Single Synagogue Affiliation Unknown Race White Ethnic Group Not or Lati no Author Organization [facility] Address [address] [place] [address] Care Team Providers Care Electronic Equipment Installer Name Role Phone Farhat Cabezas MD Primary Care Provider [phone] Farhat Cabezas MD Unavailable [phone] Farhat Cabezas MD Unavailable [phone] Source Comments In the event this information is protected by the Federal Confidentiality of Alcohol and Drug AbusePatient Records regulations: The Federal rules restrict any use of the information to criminally investigate or prosecute any alcohol or drug abuse patient.[facility] Encounter Details Date Type Department Care Team (Late st Contact Info) Description 12/26/2023 [place] [address] Provider, Ccf MRI Screening Questionnaire Completion Required [...] is lower risk 2 12/21/2022 Data from: https://www.neighborhoodatlas.[facility]/. Last address used for calculation [...] EDT [facility] Diabetic Education [facility] [address] [place], [place] 14335[address] Ignacio Garcia, SABIHA [address] [place] [address] Type 2 diabetes mellitus with hyperglycemia, with long-term current use of insulin (HCC) [E11.65, Z79.4] 11/20/2024 1:00 PM EDT [facility] Endocrinology [address] [place] [address] Valdez Suarez MD [address] [place] [address] [place] [address] follow up in 6 months 01/03/2025 10:00 AM EST [facility] Endocrinology [address] [place] [address] Greg Nina, MARITZA.MODELING DIRECTOR [address] [place], [place] [phone] diabetes follow up in 3 months virtually. documented as of this encounter Visit Diagnoses Not on filedocumented in this encounter Care Teams Electronic Equipment Installer Relationship Specialty Start Date End Date Farhat Cabezas MD PCP - General Family Medicine 01/13/11 Farhat Cabezas MD Referring Family Medicine 01/08/22 Farhat Cabezas MD [address] [place] [address] Referring Family Medicine 07/26/24 documented as of this encounter
--- OUTSIDE RECORDS SUMMARY | 2024-09-13 10:45 | XMS_ITS | Encounter Summary ---
Demographics Address [address] [place] [address] Home Phone Mobile Phone Email Address Preferred Language ENG Marital Status Single Cheondoism Affiliation Unknown Race White Ethnic Group Not or Lati no Author Organization [facility] Address [address] [place] [address] Care Team Providers Care Home Health Travel Pt Name Role Phone Farhat Cabezas MD Primary Care Provider [phone] Farhat Cabezas MD Unavailable [phone] Farhat Cabezas MD Unavailable [phone] Source Comments In the event this information is protected by the Federal Confidentiality of Alcohol and Drug AbusePatient Records regulations: The Federal rules restrict any use of the information to criminally investigate or prosecute any alcohol or drug abuse patient.[facility] Encounter Details Date Type Department Care Team (Late st Contact Info) Description 07/03/2024 [place] [address] Provider, Ccf MRI Screening Questionnaire Completion Required [...] 7 03/07/2024 Data from: https://www.neighborhoodatlas.[facility]/ . Last address used for calculation [address] 03/07/2024 Comments No Sex and [...] Contact Info) Description 09/13/2024 2:00 PM EDT [facility] Diabetic Education [facility] [address] [place] [address] Ignacio Garcia, SABIHA [address] [place] [address] Type 2 diabetes mellitus with hyperglycemia, with long-term current use of insulin (HCC) [E11.65, Z79.4] 11/20/2024 1:00 PM EDT [facility] Endocrinology [address] [place] [address] Valdez Suarez MD [address] [place] [address] [address] [place], [place] [phone] follow up in 6 months 01/03/2025 10:00 AM EST [facility] Endocrinology [address] [place] [phone] Greg Nina APRN.[employer] [address] [place], [place] 6793439 diabetes follow up in 3 months virtually. documented as of this encounter Visit Diagnoses Not on filedocumented in this encounter Care Teams Home Health Travel Pt Relationship Specialty Start Date End Date Farhat Cabezas MD PCP - General Family Medicine 01/13/11 Farhat Cabezas MD Referring Family Medicine 01/08/22 Farhat Cabezas MD [address] [place] [address] Referring Family Medicine 07/26/24 documented as of this encounter
--- OUTSIDE RECORDS SUMMARY | 2024-09-13 10:45 | XMS_ITS | Encounter Summary ---
Demographics Address [address] [facility] [place] [address] Home Phone Mobile Phone Email Address Preferred Language ENG Marital Status Single Oriental Orthodox Affiliation Unknown Race White Ethnic Group Not or Lati no Author Organization [facility] Address [address] [place] [address] Care Team Providers Care Civil Engineering Design Draftsperson Name Role Phone Farhat Cabezas MD Primary Care Provider [phone] Farhat Cabezas MD Unavailable [phone] Farhat Cabezas MD Unavailable [phone] Source Comments In the event this information is protected by the Federal Confidentiality of Alcohol and Drug AbusePatient Records regulations: The Federal rules restrict any use of the information to criminally investigate or prosecute any alcohol or drug abuse patient.[facility] Encounter Details Date Type Department Care Team (Late st Contact Info) Description 07/15/2022 Patient Msg Endocrinology [address] [place] [address] Provider, Ccf Nba Portal Social History Tobacco [...] 4 06/11/2022 Data from: https://www.neighborhoodatlas.[facility]/. Last address used for calculation [address] 06/11/2022 Comments No Sex and Gender [...] Info) Description 09/13/2024 2:00 PM EDT [facility] Diabetic Education [facility] [address] [place] [address] [place] [address] [place] [address] Type 2 diabetes mellitus with hyperglycemia, with long-term current use of insulin (HCC) [E11.65, Z79.4] 11/20/2024 1:00 PM EDT [facility] Endocrinology [address] [place] [address] Valdez Suarez MD [address] [place] [address] [address] [place], [place] [phone] follow up in 6 months 01/03/2025 10:00 AM EST [facility] Endocrinology [address] [place] [address] Greg Nina, MARITZA.SHIP RIGGER [address] [place], [place] [phone] diabetes follow up in 3 months virtually. documented as of this encounter Visit Diagnoses Not on filedocumented in this encounter Care Teams Civil Engineering Design Draftsperson Relationship Specialty Start Date End Date Farhat Cabezas MD PCP - General Family Medicine 01/13/11 Farhat Cabeazs MD Referring Family Medicine 01/08/22 Farhat Cabezas MD [facility] [place] [address] Referring Family Medicine 07/26/24 documented as of this encounter
--- OUTSIDE RECORDS SUMMARY | 2024-09-13 10:45 | XMS_ITS | Encounter Summary ---
Demographics Address [address] [facility] [place] [address] Home Phone Mobile Phone Email Address [employer] Preferred Language ENG Marital Status Single Restoration Affiliation Unknown Race White Ethnic Group Not or Lati no Author Organization [facility] Address [address] [place] [address] Care Team Providers Care Pyrometer Mechanic Name Role Phone Farhat Cabezas MD Primary Care Provider [phone] Farhat Cabezas MD Unavailable [phone] Farhat Cabezas MD Unavailable [phone] Source Comments In the event this information is protected by the Federal Confidentiality of Alcohol and Drug AbusePatient Records regulations: The Federal rules restrict any use of the information to criminally investigate or prosecute any alcohol or drug abuse patient.[facility] Encounter Details Date Type Department Care Team (Late st Contact Info) Description 05/26/2016 Get Medical Advice General Surgery 9[address] [place] [address] Marlin Chao (Hist)MD [address] [place] [address] RE: Non-Urgent Medical Question Social [...] Description 09/13/2024 2:00 PM EDT [facility] Diabetic Education [facility] [address] [place] [address] [place] [address] [place], [place] 5577107 Type 2 diabetes mellitus with hyperglycemia, with long-term current use of insulin (HCC) [E11.65, Z79.4] 11/20/2024 1:00 PM EDT [facility] Endocrinology [address] [place] [address] Valdez Suarez MD [address] [place] [address] [place], [place] 6351335 follow up in 6 months 01/03/2025 10:00 AM EST [facility] Endocrinology [address] [place] [address] Greg Nina APRN.[employer] A[employer] [address] [place] [address] diabetes follow up in 3 months virtually. documented as of this encounter Visit Diagnoses Not on filedocumented in this encounter Care Teams Pyrometer Mechanic Relationship Specialty Start Date End Date Farhat Cabezas MD PCP - General Family Medicine 01/13/11 Farhat Cabezas MD Referring Family Medicine 01/08/22 Farhat Cabezas MD [address] [place] [address] Referring Family Medicine 07/26/24 documented as of this encounter
--- OUTSIDE RECORDS SUMMARY | 2024-09-13 10:45 | XMS_ITS | Encounter Summary ---
Demographics Address [address] [place] [address] Home Phone Mobile Phone Email Address Preferred Language ENG Marital Status Single Jehovah'S Witness Affiliation Unknown Race White Ethnic Group Not or Lati no Author Organization [facility] Address [address] [place] [address] Care Team Providers Care Pastry Finisher Name Role Phone Farhat Cabezas MD Primary Care Provider [phone] Farhat Cbaezas MD Unavailable [phone] Farhta Cabezas MD Unavailable [phone] Source Comments In the event this information is protected by the Federal Confidentiality of Alcohol and Drug AbusePatient Records regulations: The Federal rules restrict any use of the information to criminally investigate or prosecute any alcohol or drug abuse patient.[facility] Encounter Details Date Type Department Care Team (Late st Contact Info) Description 07/15/2020 Patient Msg General Surgery [address] [place] [address] Provider, Ccf Lab results Social [...] N ot on file 01/16/2020 Data from: https://www.[facility]/. Last address used for calculation [...] Contact Info) Description 09/13/2024 2:00 PM EDT [facility] Diabetic Education [facility] [address] [place] [address] [place] [address] [place] [address] Type 2 diabetes mellitus with hyperglycemia, with long-term current use of insulin (HCC) [E11.65, Z79.4] 11/20/2024 1:00 PM EDT [facility] Endocrinology [address] [place] [address] Valdez Suarez MD [address] [place] [address] [address] [place], [place] 0139435 follow up in 6 months 01/03/2025 10:00 AM EST [facility] Endocrinology [address] [place] [address] Greg Nina APRN.[facility] [address] [place], [place] 5347039 diabetes follow up in 3 months virtually. documented as of this encounter Visit Diagnoses Not on filedocumented in this encounter Care Teams Pastry Finisher Relationship Specialty Start Date End Date Farhat Cabezas MD PCP - General Family Medicine 01/13/11 Farhat Cabezas MD Referring Family Medicine 01/08/22 Farhat Cabezas MD [address] [place] [address] Referring Family Medicine 07/26/24 documented as of this encounter
--- OUTSIDE RECORDS SUMMARY | 2024-09-13 10:45 | XMS_ITS | Encounter Summary ---
Demographics Address [address] [place] [address] Home Phone Mobile Phone Email Address Preferred Language ENG Marital Status Single Orthodox Affiliation Unknown Race White Ethnic Group Not or Lati no Author Organization [facility] Address [address] [place] [address] Care Team Providers Care Tooth Inspector Name Role Phone Farhat Cabezas MD Primary Care Provider [phone] Farhat Cabezas MD Unavailable [phone] Farhat Cabezas MD Unavailable [phone] Source Comments In the event this information is protected by the Federal Confidentiality of Alcohol and Drug AbusePatient Records regulations: The Federal rules restrict any use of the information to criminally investigate or prosecute any alcohol or drug abuse patient.[facility] Encounter Details Date Type Department Care Team (Late st Contact Info) Description 11/23/2023 Patient Msg Radiology [address] [place] [address] Provider, Cc CT Scan 12/14/2023 Social History [...] is lower risk 2 12/21/2022 Data from: https://www.neighborhoodatlas.[facility]/. Last address used for calculation [address] 12/21/2022 Comments No Sex and Gender [...] 2:00 PM EDT [facility] Diabetic Education [facility] [address] [place] [address] [place] [address] [place], [place] [phone] Type 2 diabetes mellitus with hyperglycemia, with long-term current use of insulin (HCC) [E11.65, Z79.4] 11/20/2024 1:00 PM EDT [facility] Endocrinology [address] [place] [address] Valdez Suarez MD [address] [place] [address] [address] [place], [place] 6960135 follow up in 6 months 01/03/2025 10:00 AM EST [facility] Endocrinology [address] [place] [address] Greg Nina APRN.CHASSIS DRIVER [address] [place] [address] diabetes follow up in 3 months virtually. documented as of this encounter Visit Diagnoses Not on filedocumented in this encounter Care Teams Tooth Inspector Relationship Specialty Start Date End Date Farhat Cabezas MD PCP - General Family Medicine 01/13/11 Farhat Cabezas MD Referring Family Medicine 01/08/22 Farhat Cabezas MD [address] [place] [address] Referring Family Medicine 07/26/24 documented as of this encounter
--- OUTSIDE RECORDS SUMMARY | 2024-09-13 10:45 | XMS_ITS | Encounter Summary ---
Demographics Address [address] [place] [address] Home Phone Mobile Phone Email Address Preferred Language ENG Marital Status Single Oriental Orthodox Affiliation Unknown Race White Ethnic Group Not or Lati no Author Organization [facility] Address [address] [place] [address] Care Team Providers Care Bull Wheel Worker Name Role Phone Farhat Cabezas MD Primary Care Provider [phone] Farhat Cabezas MD Unavailable [phone] Farhat Cabezas MD Unavailable [phone] Source Comments In the event this information is protected by the Federal Confidentiality of Alcohol and Drug AbusePatient Records regulations: The Federal rules restrict any use of the information to criminally investigate or prosecute any alcohol or drug abuse patient.[facility] Encounter Details Date Type Department Care Team (Late st Contact Info) Description 12/20/2023 [place] [address] Provider, Ccf MRI Screening Questionnaire Completion Required [...] is lower risk 2 12/21/2022 Data from: https://www.neighborhoodatlas.[facility]/. Last address used for calculation [...] Contact Info) Description 09/13/2024 2:00 PM EDT [facility] Diabetic Education [facility] [address] [place], [place] [address] Ignacio Garcia, SABIHA [address] [place] [address] Type 2 diabetes mellitus with hyperglycemia, with long-term current use of insulin (HCC) [E11.65, Z79.4] 11/20/2024 1:00 PM EDT [facility] Endocrinology [address] [place] [address] Valedz Suarez MD [address] [place] [address] [place] [address] follow up in 6 months 01/03/2025 10:00 AM EST [facility] Endocrinology [address] [place] [address] Greg Nina, MARITZA.BUSINESS INSIGHT AND ANALYTICS MANAGER [address] [place], [place] 1283539 diabetes follow up in 3 months virtually. documented as of this encounter Visit Diagnoses Not on filedocumented in this encounter Care Teams Bull Wheel Worker Relationship Specialty Start Date End Date Farhat Cabezas MD PCP - General Family Medicine 01/13/11 Farhat Cabezas MD Referring Family Medicine 01/08/22 Farhat Cabeazs MD [address] [place] [address] Referring Family Medicine 07/26/24 documented as of this encounter
--- OUTSIDE RECORDS SUMMARY | 2024-09-13 10:45 | XMS_ITS | Encounter Summary ---
Demographics Address [address] [place] [address] Home Phone Mobile Phone Email Address Preferred Language ENG Marital Status Single Worship Affiliation Unknown Race White Ethnic Group Not or Lati no Author Organization [facility] Address [address] [place] [address] Care Team Providers Care Sleep Scientist Name Role Phone Farhat Cabezas MD Primary Care Provider [phone] Farhat Cabezas MD Unavailable [phone] Farhat Cabezas MD Unavailable [phone] Source Comments In the event this [...] Description 08/17/2016 Get Medical Advice Rheumatology [address] [place] [address] Zabrina Culver MD [address] [place], [place] 8500453 RE: Upcoming Appointment Question Social History Tobacco [...] Description 09/13/2024 2:00 PM EDT [facility] Diabetic Education [facility] [address] [place] [address] [place] [address] [place] [address] Type 2 diabetes mellitus with hyperglycemia, with long-term current use of insulin (HCC) [E11.65, Z79.4] 11/20/2024 1:00 PM EDT [facility] Endocrinology [address] [place] [address] Valdez Suarez MD [address] [place] [address] [place], [place] 370[address]35 follow up in 6 months 01/03/2025 10:00 AM EST [facility] Endocrinology [address] [place] [address] Greg Nina, MARITZA.PASTE UP COPY CAMERA OPERATOR [address] [place] [address] diabetes follow up in 3 months virtually. documented as of this encounter Visit Diagnoses Not on filedocumented in this encounter Care Teams Sleep Scientist Relationship Specialty Start Date End Date Farhat Cabezas MD PCP - General Family Medicine 01/13/11 Farhat Cabezas MD Referring Family Medicine 01/08/22 Farhat Cabezas MD [address] [place] [address] Referring Family Medicine 07/26/24 documented as of this encounter
--- OUTSIDE RECORDS SUMMARY | 2024-09-13 10:45 | XMS_ITS | Encounter Summary ---
Demographics Address [address] [place] [address] Home Phone Mobile Phone Email Address Preferred Language ENG Marital Status Single Methodist Affiliation Unknown Race White Ethnic Group Not or Lati no Author Organization [facility] Address [address] [place] [address] Care Team Providers Care Tank Filler Name Role Phone Farhat Cabezas MD Primary Care Provider [phone] Farhat Cabezas MD Unavailable [phone] Farhat Cabezas MD Unavailable [phone] Source Comments In the event this information is protected by the Federal Confidentiality of Alcohol and Drug AbusePatient Records regulations: The Federal rules restrict any use of the information to criminally investigate or prosecute any alcohol or drug abuse patient.[facility] Encounter Details Date Type Department Care Team (Late st Contact Info) Description 05/28/2023 Patient Msg [facility] [address] [facility] [place] [address] Valdez Suarez MD [address] [place] [address] [place] [address] Appointment Request Social History Tobacco Use [...] is lower risk 2 12/21/2022 Data from: https://www.neighborhoodatlas.medicine.[facility]/. Last address used for calculation [address] 12/21/2022 Comments No Sex and [...] Description 09/13/2024 2:00 PM EDT [facility] Diabetic Education [facility] [address] [place] [address] [place] [address] [place] [address] Type 2 diabetes mellitus with hyperglycemia, with long-term current use of insulin (HCC) [E11.65, Z79.4] 11/20/2024 1:00 PM EDT [facility] Endocrinology [address] [place] [address] Valdez Suarez MD [address] [place] [address] [address] [place], [place] [id number] follow up in 6 months 01/03/2025 10:00 AM EST [facility] Endocrinology [address] [place] [address] Greg Nina APRN.[facility] [address] [place] [address] diabetes follow up in 3 months virtually. documented as of this encounter Visit Diagnoses Not on filedocumented in this encounter Care Teams Tank Filler Relationship Specialty Start Date End Date Farhat Cabezas MD PCP - General Family Medicine 01/13/11 Farhat Cabezas MD Referring Family Medicine 01/08/22 Farhat Cabezas MD [address] [place] [address] Referring Family Medicine 07/26/24 documented as of this encounter
--- OUTSIDE RECORDS SUMMARY | 2024-09-13 10:45 | XMS_ITS | Patient Health Record ---
Demographics Address [address] [place] [address] Mobile Preferred Language en Marital Status unmarried Zoroastrianism Affiliation Unknown Race White Ethnic Group Not or Lati no Author Organization [facility] es Address [address] [facility] [place] [address] Care Team Providers Care Remote Ruby On Rails Developer Name Role Phone Jason Lemon Primary Care Provider [phone] Reason For Referral No Information Plan Of Treatment No Information
--- OUTSIDE RECORDS SUMMARY | 2024-09-13 10:45 | XMS_ITS | Encounter Summary ---
Demographics Address [address] [place] [address] Home Phone Mobile Phone Email Address Preferred Language ENG Marital Status Single Caodaism Affiliation Unknown Race White Ethnic Group Not or Lati no Author Organization [facility] Address [address] [place] [address] Care Team Providers Care Sales Service Representative Name Role Phone Farhat Cabezas MD Primary Care Provider [phone] Farhat Cabezas MD Unavailable [phone] Farhat Cabezas MD Unavailable [phone] Source Comments In the event this information is protected by the Federal Confidentiality of Alcohol and Drug AbusePatient Records regulations: The Federal rules restrict any use of the information to criminally investigate or prosecute any alcohol or drug abuse patient.[facility] Encounter Details Date Type Department Care Team (Late st Contact Info) Description 07/19/2023 Patient Msg Cardiology [address] [facility] [place] [address] Ellyn Barraza, HEAT TREAT WORKER.FACILITIES DIRECTOR [address] [place] [address] Appointment Request Social [...] is lower risk 2 12/21/2022 Data from: https://www.neighborhoodatlas.medicine.[facility]/. Last address used [...] PM Mona Duboes (Rn) (Hist), RN * Do you have [...] Info) Description 09/13/2024 2:00 PM EDT [facility] [address] [place] [address] [place] [address] [place] [address] Type 2 diabetes mellitus with hyperglycemia, with long-term current use of insulin ([facility]) [E11.65, Z79.4] 11/20/2024 1:00 PM EDT [facility] Endocrinology [address] [place] [address] Valdez Suarez MD [address] [place] [address] [address] [place], [place] [address]226[address] follow up in 6 months 01/03/2025 10:00 AM EST [facility] Endocrinology [address] [place] [address] Greg Nina APRN.[facility] [address] [place] [address] diabetes follow up in 3 months virtually. documented as of this encounter Visit Diagnoses Not on filedocumented in this encounter Care Teams Sales Service Representative Relationship Specialty Start Date End Date Farhat Cabezas MD PCP - General Family Medicine 01/13/11 Farhat Cabezas MD Referring Family Medicine 01/08/22 Farhat Cabezas MD [address] [place] [address] Referring Family Medicine 07/26/24 documented as of this encounter
--- OUTSIDE RECORDS SUMMARY | 2024-09-13 10:45 | XMS_ITS | Encounter Summary ---
Demographics Address [address] [place] [address] Home Phone Mobile Phone Email Address Preferred Language ENG Marital Status Single Quaker Affiliation Unknown Race White Ethnic Group Not or Lati no Author Organization [facility] Address [facility] [place] [address] Care Team Providers Care Pyroglazer Name Role Phone Farhat Cabezas MD Primary Care Provider [phone] Farhat Cabezas MD Unavailable [phone] Farhat Cabezas MD Unavailable [phone] Source Comments In the event this information is protected by the Federal Confidentiality of Alcohol and Drug AbusePatient Records regulations: The Federal rules restrict any use of the information to criminally investigate or prosecute any alcohol or drug abuse patient.[facility] Encounter Details Date Type Department Care Team (Late st Contact Info) Description 05/02/2023 Patient [facility] [address] [id number] Mathew Ferraro MD Regarding your upcoming endoscopy [...] is lower risk 2 12/21/2022 Data from: https://www.neighborhoodatlas.[facility]/. Last address used [...] Info) Description 09/13/2024 2:00 PM EDT [facility] Diabetic Education [facility] [address] [place] [address] [place] [address] [place], [place] [id number] Type 2 diabetes mellitus with hyperglycemia, with long-term current use of insulin ([facility]) [E11.65, Z79.4] 11/20/2024 1:00 PM EDT [facility] Endocrinology [address] [place] [address] Valdez Suarez MD [address] [place] [address] [address] [place], [place] [id number] follow up in 6 months 01/03/2025 10:00 AM EST [facility] Endocrinology [address] [place] [address] Greg Nina APRN.MOBILE SECURITY SPECIALIST [address] [place] [address] diabetes follow up in 3 months virtually. documented as of this encounter Visit Diagnoses Not on filedocumented in this encounter Care Teams Pyroglazer Relationship Specialty Start Date End Date Farhat Cabezas MD PCP - General Family Medicine 01/13/11 Farhat Cabezas MD Referring Family Medicine 01/08/22 Farhat Cabezas MD [address] [place] [address] Referring Family Medicine 07/26/24 documented as of this encounter
--- OUTSIDE RECORDS SUMMARY | 2024-09-13 10:45 | XMS_ITS | Encounter Summary ---
Demographics Address [address] [place] [address] Home Phone Mobile Phone Email Address Preferred Language ENG Marital Status Single Oriental Orthodox Affiliation Unknown Race White Ethnic Group Not or Lati no Author Organization [facility] Address [address] [place] [address] Care Team Providers Care Director Check Name Role Phone Farhat Cabezas MD Primary Care Provider [phone] Farhat Cabezas MD Unavailable [phone] Farhat Cabezas MD Unavailable [phone] Source Comments In the event this [...] Description 05/28/2023 Patient Msg Cardiology [address] [place], [place] [address] Ellyn Barraza, HELICOPTER MECHANIC.PALLETISER OPERATOR [address] [place], [place] [address] Appointment Request Social History Tobacco Use Types [...] risk 2 12/21/2022 Data from: https://www.neighborhoodatlas.medicine.[facility]/. Last address [...] 2:00 PM EDT [facility] Diabetic Education [facility] [address] [place] [address] [place] [address] [place] [address] Type 2 diabetes mellitus with hyperglycemia, with long-term current use of insulin ([facility]) [E11.65, Z79.4] 11/20/2024 1:00 PM EDT [facility] Endocrinology [address] [place] [address] Valdez Suarez MD [address] [place] [address] [place], [place] [phone] follow up in 6 months 01/03/2025 10:00 AM EST [facility] Endocrinology [address] [place] [address] Greg Nina APRN.[facility] [address] [place] [address] diabetes follow up in 3 months virtually. documented as of this encounter Visit Diagnoses Not on filedocumented in this encounter Care Teams Director Check Relationship Specialty Start Date End Date Farhat Cabezas MD PCP - General Family Medicine 01/13/11 Farhat Cabezas MD Referring Family Medicine 01/08/22 Farhat Cabezas MD [address] [place] [address] Referring Family Medicine 07/26/24 documented as of this encounter
--- OUTSIDE RECORDS SUMMARY | 2024-09-13 10:45 | XMS_ITS | Encounter Summary ---
Demographics Address [address] [facility] [place] [address] Home Phone Mobile Phone Email Address Preferred Language ENG Marital Status Single Anglican Affiliation Unknown Race White Ethnic Group Not or Lati no Author Organization [facility] Address [facility] [place] [address] Care Team Providers Care Secretary To Board Of Commissioners Name Role Phone Farhat Cabezas MD Primary Care Provider [phone] Farhat Cabezas MD Unavailable [phone] Farhat Cabezas MD Unavailable [phone] Source Comments In the event this information is protected by the Federal Confidentiality of Alcohol and Drug AbusePatient Records regulations: The Federal rules restrict any use of the information to criminally investigate or prosecute any alcohol or drug abuse patient.[facility] Encounter Details Date Type Department Care Team (Late st Contact Info) Description 07/07/2024 Patient Msg Neurology [address] [place] [address] Thaddeus Diggs MD [address] [place] [address] MRI denial Social History Tobacco [...] risk 7 03/07/2024 Data from: https://www.neighborhoodatlas.medicine.[facility]/ . Last address used for calculation [address] 03/07/2024 Comments No Sex and [...] Contact Info) Description 09/13/2024 2:00 PM EDT [facility] Education [facility] [address] [place], [place] [address] [place] [address] [place] [address] Type 2 diabetes mellitus with hyperglycemia, with long-term current use of insulin (HCC) [E11.65, Z79.4] 11/20/2024 1:00 PM EDT [facility] Endocrinology [address] [place] [address] Valdez Suarez MD [address] [place] [address] [address] [place], [place] 5835635 follow up in 6 months 01/03/2025 10:00 AM EST [facility] Endocrinology [address] [place] [address] Greg Nina APRN.[facility] [address] [place], [place] 4807639 diabetes follow up in 3 months virtually. documented as of this encounter Visit Diagnoses Not on filedocumented in this encounter Care Teams Secretary To Board Of Commissioners Relationship Specialty Start Date End Date Farhat Cabezas MD PCP - General Family Medicine 01/13/11 Farhat Cabezas MD Referring Family Medicine 01/08/22 Farhat Cabezas MD [address] [place] [address] Referring Family Medicine 07/26/24 documented as of this encounter
--- OUTSIDE RECORDS SUMMARY | 2024-09-13 10:45 | XMS_ITS | Encounter Summary ---
Demographics Address [address] [facility] [place] [address] Home Phone Mobile Phone Email Address Preferred Language ENG Marital Status Single Lutheran Affiliation Unknown Race White Ethnic Group Not or Lati no Author Organization [facility] Address [facility] [place] [address] Care Team Providers Care Container Finishing Inspector Name Role Phone Farhat Cabezas MD Primary Care Provider [phone] Farhat Cabezas MD Unavailable [phone] Farhat Cabezas MD Unavailable [phone] Source Comments In the event this information is protected by the Federal Confidentiality of Alcohol and Drug AbusePatient Records regulations: The Federal rules restrict any use of the information to criminally investigate or prosecute any alcohol or drug abuse patient.[facility] Encounter Details Date Type Department Care Team (Late st Contact Info) Description 08/25/2023 Patient Msg Neurology [address] [place] [address] Thaddeus Diggs MD [address] [place] [address] Appointment Request Social History Tobacco [...] lower risk 2 12/21/2022 Data from: https://www.neighborhoodatlas.medicine.[facility]/. Last address used for calculation [address] [...] [facility] [address] [place], [place] [address] Ignacio Garcia, SABIHA [address] [place] [address] Type 2 diabetes mellitus with hyperglycemia, with long-term current use of insulin (HCC) [E11.65, Z79.4] 11/20/2024 1:00 PM EDT [facility] Endocrinology [address] [place] [address] Valdez Suarez MD [address] [place] [address] [address] [place], [place] 3857435 follow up in 6 months 01/03/2025 10:00 AM EST [facility] Endocrinology [address] [place] [address] Greg Nina APRN.[facility] [address] [place], [place] [address]39 diabetes follow up in 3 months virtually. documented as of this encounter Visit Diagnoses Not on filedocumented in this encounter Care Teams Container Finishing Inspector Relationship Specialty Start Date End Date Farhat Cabezas MD PCP - General Family Medicine 01/13/11 Farhat Cabezas MD Referring Family Medicine 01/08/22 Farhat Cabezas MD [address] [place] [address] Referring Family Medicine 07/26/24 documented as of this encounter
--- OUTSIDE RECORDS SUMMARY | 2024-09-13 10:45 | XMS_ITS | Encounter Summary ---
Demographics Address [address] [facility] [place] [address] Home Phone Mobile Phone Email Address Preferred Language ENG Marital Status Single Anglican Affiliation Unknown Race White Ethnic Group Not or Lati no Author Organization [facility] Address [address] [place] [address] Care Team Providers Care Press Breaker Name Role Phone Farhat Cabezas MD Primary Care Provider [phone] Farhat Cabezas MD Unavailable [phone] Farhat Cabezas MD Unavailable [phone] Source Comments In the event this information is protected by the Federal Confidentiality of Alcohol and Drug AbusePatient Records regulations: The Federal rules restrict any use of the information to criminally investigate or prosecute any alcohol or drug abuse patient.[facility] Encounter Details Date Type Department Care Team (Late st Contact Info) Description 01/10/2016 Get Medical Advice General Surgery [address] [place] [address] Rachel Yi MD [address] [place] [address] RE: Non-Urgent Medical Question Social [...] PM EDT [facility] Diabetic Education [facility] [address] [place] [address] [place] [address] [place] [address] Type 2 diabetes mellitus with hyperglycemia, with long-term current use of insulin (HCC) [E11.65, Z79.4] 11/20/2024 1:00 PM EDT [facility] Endocrinology [address] [place] [address] Valdez Suarez MD [address] [place] [address] [address] [place], [place] 3607735 follow up in 6 months 01/03/2025 10:00 AM EST [facility] Endocrinology [address] [place] [address] Greg Nina, MARITZA.SENIOR CYTOGENETIC TECHNOLOGIST [address] [place] [address] diabetes follow up in 3 months virtually. documented as of this encounter Visit Diagnoses Not on filedocumented in this encounter Care Teams Press Breaker Relationship Specialty Start Date End Date Farhat Cabezas MD PCP - General Family Medicine 01/13/11 Farhat Cabezas MD Referring Family Medicine 01/08/22 Farhat Cabezas MD [address] [place] [address] Referring Family Medicine 07/26/24 documented as of this encounter
--- OUTSIDE RECORDS SUMMARY | 2024-09-13 10:45 | XMS_ITS | Encounter Summary ---
Demographics Address [address] [facility] [place] [address] Home Phone Mobile Phone Email Address Preferred Language ENG Marital Status Single Jainism Affiliation Unknown Race White Ethnic Group Not or Lati no Author Organization [facility] Address [facility] [place] [address] Care Team Providers Care Franchise Specialist Name Role Phone Farhat Cabezas MD Primary Care Provider [phone] Farhat Cabezas MD Unavailable [phone] Farhat Cabezas MD Unavailable [phone] Source Comments In the event this information is protected by the Federal Confidentiality of Alcohol and Drug AbusePatient Records regulations: The Federal rules restrict any use of the information to criminally investigate or prosecute any alcohol or drug abuse patient.[facility] Encounter Details Date Type Department Care Team (Late st Contact Info) Description 05/24/2024 Get Medical Advice Neurology [address] [place] [address] Thaddeus Diggs MD [address] [place] [address] MRI cervical slime Social History [...] risk 7 03/07/2024 Data from: https://www.neighborhoodatlas.medicine.[facility]/ . Last address used for [...] Contact Info) Description 09/13/2024 2:00 PM EDT [facility] Education [facility] [address] [place] [address] [place] [address] [place] [address] Type 2 diabetes mellitus with hyperglycemia, with long-term current use of insulin (HCC) [E11.65, Z79.4] 11/20/2024 1:00 PM EDT [facility] Endocrinology [address] [place] [address] Valdez Suarez MD [address] [place] [address] [address] [place], [place] [phone] follow up in 6 months 01/03/2025 10:00 AM EST [facility] Endocrinology [address] [place] [address] Greg Nina APRN.[facility] [address] [place], [place] 250[address] diabetes follow up in 3 months virtually. documented as of this encounter Visit Diagnoses Not on filedocumented in this encounter Care Teams Franchise Specialist Relationship Specialty Start Date End Date Farhat Cabezas MD PCP - General Family Medicine 01/13/11 Farhat Cabezas MD Referring Family Medicine 01/08/22 Farhat Cabezas MD [address] [place] [address] Referring Family Medicine 07/26/24 documented as of this encounter
--- OUTSIDE RECORDS SUMMARY | 2024-09-13 10:45 | XMS_ITS | Encounter Summary ---
Demographics Address [address] [facility] [place] [address] Home Phone Mobile Phone Email Address Preferred Language ENG Marital Status Single Gnosticism Affiliation Unknown Race White Ethnic Group Not or Lati no Author Organization [facility] Address [facility] [place] [address] Care Team Providers Care Resident Service Coordinator Name Role Phone Farhat Cabezas MD Primary Care Provider [phone] Farhat Cabezas MD Unavailable [phone] Farhat Cabezas MD Unavailable [phone] Source Comments In the event this information is protected by the Federal Confidentiality of Alcohol and Drug AbusePatient Records regulations: The Federal rules restrict any use of the information to criminally investigate or prosecute any alcohol or drug abuse patient.[facility] Encounter Details Date Type Department Care Team (Late st Contact Info) Description 10/12/2023 Get Medical Advice Neurology [address] [place] [address] Thaddeus Diggs MD [address] [place] [address] MRI / lab results Social [...] lower risk 2 12/21/2022 Data from: https://www.neighborhoodatlas.medicine.[facility]/. Last address used for calculation [address] [...] Contact Info) Description 09/13/2024 2:00 PM EDT [facility] Education [facility] [address] [place] [address] Ignacio Garcia, SABIHA [address] [place] [address] Type 2 diabetes mellitus with hyperglycemia, with long-term current use of insulin (HCC) [E11.65, Z79.4] 11/20/2024 1:00 PM EDT [facility] Endocrinology [address] [place] [address] Valdez Suarez MD [address] [place] [address] [address] [place], [place] [phone] follow up in 6 months 01/03/2025 10:00 AM EST [facility] Endocrinology [address] [place] [address] Greg Nina APRN.[facility] [address] [place], [place] 1983239 diabetes follow up in 3 months virtually. documented as of this encounter Visit Diagnoses Not on filedocumented in this encounter Care Teams Resident Service Coordinator Relationship Specialty Start Date End Date Farhat Cabezas MD PCP - General Family Medicine 01/13/11 Farhat Cabezas MD Referring Family Medicine 01/08/22 Farhat Cabezas MD [address] [place] [address] Referring Family Medicine 07/26/24 documented as of this encounter
--- OUTSIDE RECORDS SUMMARY | 2024-09-13 10:45 | XMS_ITS | Encounter Summary ---
Author Organization [facility] Address [address] [place] [address] Care Team Providers Care Industrial Engineering Director Name Role Phone Farhat Cabezas MD Primary Care Provider [phone] Farhat Cabezas MD Unavailable [phone] Farhat Cabezas MD Unavailable [phone] Source Comments In the event this information is protected by the Federal Confidentiality of Alcohol and Drug AbusePatient Records regulations: The Federal rules restrict any use of the information to criminally investigate or prosecute any alcohol or drug abuse patient.[facility] Encounter Details Date Type Department Care Team (Late st Contact Info) Description 02/19/2016 Patient Msg Medical Records [address] [place] [address] Provider, Ccf medical workup/ Social History Tobacco [...] 2:00 PM EDT [facility] Diabetic Education [facility] [address] [place], [place] [phone] [place] [address] [place] [address] Type 2 diabetes mellitus with hyperglycemia, with long-term current use of insulin (HCC) [E11.65, Z79.4] 11/20/2024 1:00 PM EDT [facility] End[facility]inology [address] [place] [address] Valdez Suarez MD [address] [place] [address] [address] [place], [place] 1682635 follow up in 6 months 01/03/2025 10:00 AM EST [facility] [address] [place] [address] Greg Nina, MARITZA.KNIFE OPERATOR [address] [place] [address] diabetes follow up in 3 months virtually. documented as of this encounter Visit Diagnoses Not on filedocumented in this encounter Care Teams Industrial Engineering Director Relationship Specialty Start Date End Date Farhat Cabezas MD PCP - General Family Medicine 01/13/11 Farhat Cabezas MD Referring Family Medicine 01/08/22 Farhat Cabezas MD [address] [place] [address] Referring Family Medicine 07/26/24 documented as of this encounter
--- OUTSIDE RECORDS SUMMARY | 2024-09-13 10:45 | XMS_ITS | Encounter Summary ---
Demographics Address [address] [place] [address] Home Phone Mobile Phone Email Address Preferred Language ENG Marital Status Single Jain Affiliation Unknown Race White Ethnic Group Not or Lati no Author Organization [facility] Address [address] [place] [address] Care Team Providers Care Paper Colorer Name Role Phone Farhat Cabezas MD Primary Care Provider [phone] Farhat Cabezas MD Unavailable [phone] Farhat Cabezas MD Unavailable [phone] Source Comments In the event this information is protected by the Federal Confidentiality of Alcohol and Drug AbusePatient Records regulations: The Federal rules restrict any use of the information to criminally investigate or prosecute any alcohol or drug abuse patient.[facility] Encounter Details Date Type Department Care Team (Late st Contact Info) Description 05/28/2023 Patient Msg Endocrinology [address] [place] [address] Vinicius Márquez, HOSPITALIST MEDICAL DIRECTOR.ASSET PROTECTION OFFICER [address] [place] [address] Appointment Request Social History Tobacco Use Types [...] lower risk 2 12/21/2022 Data from: https://www.neighborhoodatlas.medicine.[facility]/. Last address used for calculation 543 [...] Description 09/13/2024 2:00 PM EDT [facility] Diabetic Education [facility] [address] [place] [address] [place] [address] [place] [address] Type 2 diabetes mellitus with hyperglycemia, with long-term current use of insulin (HCC) [E11.65, Z79.4] 11/20/2024 1:00 PM EDT [facility] Endocrinology [address] [place] [address] Valdez Suarez MD [address] [place] [address] [address] [place], [place] [phone] follow up in 6 months 01/03/2025 10:00 AM EST [facility] Endocrinology [address] [place] [address] Greg Nina APRN.[facility] [address] [place], [place] [phone] diabetes follow up in 3 months virtually. documented as of this encounter Visit Diagnoses Not on filedocumented in this encounter Care Teams Paper Colorer Relationship Specialty Start Date End Date Farhat Cabezas MD PCP - General Family Medicine 01/13/11 Farhat Cabezas MD Referring Family Medicine 01/08/22 Farhat Cabezas MD [address] [place] [address] Referring Family Medicine 07/26/24 documented as of this encounter
--- OUTSIDE RECORDS SUMMARY | 2024-09-13 10:45 | XMS_ITS | Encounter Summary ---
Demographics Address [address] [address] Home Phone Mobile Phone Email Address Preferred Language ENG Marital Status Single Uatsdin Affiliation Unknown Race White Ethnic Group Not or Lati no Author Organization [facility] Address [address] [place] [address] Care Team Providers Care Ocean Import Representative Name Role Phone Farhat Cabezas MD Primary Care Provider [phone] Farhat Cabezas MD Unavailable [phone] Farhat Caebzas MD Unavailable [phone] Source Comments In the event this information is protected by the Federal Confidentiality of Alcohol and Drug AbusePatient Records regulations: The Federal rules restrict any use of the information to criminally investigate or prosecute any alcohol or drug abuse patient.[facility] Encounter Details Date Type Department Care Team (Late st Contact Info) Description 08/12/2020 Patient Msg BMI [facility] REJ [address] [place], [place] [phone] Rachel Yi MD [address] [place] [address] Request an Appointment Social History [...] N ot on file 01/16/2020 Data from: https://www.neighborhoodatlas.medicine.[facility] [...] Info) Description 09/13/2024 2:00 PM EDT [facility] [address] [place] [address] [place] [address] [place], [place] [phone] Type 2 diabetes mellitus with hyperglycemia, with long-term current use of insulin (HCC) [E11.65, Z79.4] 11/20/2024 1:00 PM EDT [facility] Endocrinology [address] [place] [address] Valdez Suarez MD [address] [place] [address] [address] [place], [place] 1746135 follow up in 6 months 01/03/2025 10:00 AM EST [facility] Endocrinology [address] [place] [address] Greg Nina APRN.[facility] [address] [place], [place] 2396139 diabetes follow up in 3 months virtually. documented as of this encounter Visit Diagnoses Not on filedocumented in this encounter Care Teams Ocean Import Representative Relationship Specialty Start Date End Date Farhat Cabezas MD PCP - General Family Medicine 01/13/11 Farhat Cabezas MD Referring Family Medicine 01/08/22 Farhat Cabezas MD [address] [place] [address] Referring Family Medicine 07/26/24 documented as of this encounter
--- OUTSIDE RECORDS SUMMARY | 2024-09-13 10:45 | XMS_ITS | Encounter Summary ---
Demographics Address [address] [facility] [place] [address] Home Phone Mobile Phone Email Address Preferred Language ENG Marital Status Single Protestant Affiliation Unknown Race White Ethnic Group Not or Lati no Author Organization [facility] Address [address] [place] [address] Care Team Providers Care Manager Ems Name Role Phone Farhat Cabezas MD Primary Care Provider [phone] Farhat Cabezas MD Unavailable [phone] Farhat Cabezas MD Unavailable [phone] Source Comments In the event this information is protected by the Federal Confidentiality of Alcohol and Drug AbusePatient Records regulations: The Federal rules restrict any use of the information to criminally investigate or prosecute any alcohol or drug abuse patient.[facility] Encounter Details Date Type Department Care Team (Late st Contact Info) Description 01/22/2016 Get Medical Advice General Surgery [address] [place] [address] Marlin Chao (Hist)MD 1430 [place] [address] RE: Non-Urgent Medical Question Social [...] Contact Info) Description 09/13/2024 2:00 PM EDT [facility] Diabetic Education [facility] [address] [place] [address] [place] [address] [place], [place] [phone] Type 2 diabetes mellitus with hyperglycemia, with long-term current use of insulin (HCC) [E11.65, Z79.4] 11/20/2024 1:00 PM EDT [facility] Endocrinology [address] [place] [address] Valdez Suarez MD [address] [place] [address] [address] [place], [place] [phone] follow up in 6 months 01/03/2025 10:00 AM EST [facility] Endocrinology [address] [place] [address] Greg Nina APRN.REO ASSET MANAGER [address] [place] [address] diabetes follow up in 3 months virtually. documented as of this encounter Visit Diagnoses Not on filedocumented in this encounter Care Teams Manager Ems Relationship Specialty Start Date End Date Farhat Cabezas MD PCP - General Family Medicine 01/13/11 Farhat Cabezas MD Referring Family Medicine 01/08/22 Farhat Cabezas MD [address] [place] [address] Referring Family Medicine 07/26/24 documented as of this encounter
--- OUTSIDE RECORDS SUMMARY | 2024-09-13 10:46 | XMS_ITS | Encounter Summary ---
Demographics Address [address] [place] [address] Home Phone Mobile Phone Email Address Preferred Language ENG Marital Status Single Baptist Affiliation Unknown Race White Ethnic Group Not or Lati no Author Organization [facility] Address [address] [place] [address] Care Team Providers Care Market President Name Role Phone Farhat Cabezas MD Primary Care Provider [phone] Farhat Cabezas MD Unavailable [phone] Farhat Cabezas MD Unavailable [phone] Source Comments In the event this information is protected by the Federal Confidentiality of Alcohol and Drug AbusePatient Records regulations: The Federal rules restrict any use of the information to criminally investigate or prosecute any alcohol or drug abuse patient.[facility] Encounter Details Date Type Department Care Team (Late st Contact Info) Description 02/04/2024 Patient [facility] -[address] [place] [address] Renetta Moore RPh At your next appointment, choose [facility]. Social History Tobacco Use Types [...] lower risk 2 12/21/2022 Data from: https://www.neighborhoodatlas.[facility]/. Last address used for [...] Contact Info) Description 09/13/2024 2:00 PM EDT [facility] Diabetic Education [facility] [address] [place] [address] [place] [address] [place] [address] Type 2 diabetes mellitus with hyperglycemia, with long-term current use of insulin (HCC) [E11.65, Z79.4] 11/20/2024 1:00 PM EDT [facility] Endocrinology [address] [place] [address] Valdez Suarez MD [address] [place] [address] [address] [place], [place] [phone] follow up in 6 months 01/03/2025 10:00 AM EST [facility] Endocrinology [address] [place] [address] Greg Nina APRN.TRACKMAN [address] [place] [address] diabetes follow up in 3 months virtually. documented as of this encounter Visit Diagnoses Not on filedocumented in this encounter Care Teams Market President Relationship Specialty Start Date End Date Farhat Cabezas MD PCP - General Family Medicine 01/13/11 Farhat Cabezas MD Referring Family Medicine 01/08/22 Farhat Cabezas MD [address] [place] [address] Referring Family Medicine 07/26/24 documented as of this encounter
--- OUTSIDE RECORDS SUMMARY | 2024-09-13 10:46 | XMS_ITS | Encounter Summary ---
Demographics Address [address] [address] Home Phone Mobile Phone Email Address Preferred Language ENG Marital Status Single Nondenominational Affiliation Unknown Race White Ethnic Group Not or Lati no Author Organization [facility] Address [address] [place] [address] Care Team Providers Care Sales Representative Supervisor Name Role Phone Farhat Cabezas MD Primary Care Provider [phone] Farhat Cabezas MD Unavailable [phone] Farhat Cabezas MD Unavailable [phone] Source Comments In the event this information is protected by the Federal Confidentiality of Alcohol and Drug AbusePatient Records regulations: The Federal rules restrict any use of the information to criminally investigate or prosecute any alcohol or drug abuse patient.[facility] Encounter Details Date Type Department Care Team (Late st Contact Info) Description 05/25/2021 Patient Msg BMI [facility] REJ [address] [place], [place] [phone] Rachel Yi MD [address]00 [place] [address] Request an Appointment Social History [...] ot on file 01/16/2020 Data from: https://www.neighborhoodatlas.medicine.[facility]/. Last address [...] Contact Info) Description 09/13/2024 2:00 PM EDT [facility] Diabetic Education [facility] [address] [place] [address] [place] [address] [place] [address] Type 2 diabetes mellitus with hyperglycemia, with long-term current use of insulin (HCC) [E11.65, Z79.4] 11/20/2024 1:00 PM EDT [facility] Endocrinology [address] [place] [address] Valdez Suarez MD [address] [place] [address] [address] [place], [place] 0619035 follow up in 6 months 01/03/2025 10:00 AM EST [facility] Endocrinology [address] [place] [address] Greg Nina, MARITZA.FIELD COURT RESEARCHER [address] [place], [place] 1134039 diabetes follow up in 3 months virtually. documented as of this encounter Visit Diagnoses Not on filedocumented in this encounter Care Teams Sales Representative Supervisor Relationship Specialty Start Date End Date Farhat Cabezas MD PCP - General Family Medicine 01/13/11 Farhat Cabezas MD Referring Family Medicine 01/08/22 Farhat Cabezas MD [address] [place] [address] Referring Family Medicine 07/26/24 documented as of this encounter
--- OUTSIDE RECORDS SUMMARY | 2024-09-13 10:46 | XMS_ITS | Encounter Summary ---
Demographics Address [address] [place] [address] Home Phone Mobile Phone Email Address Preferred Language ENG Marital Status Single Denominational Affiliation Unknown Race White Ethnic Group Not or Lati no Author Organization [facility] Address [address] [place] [address] Care Team Providers Care Surgical Scrub Technician Name Role Phone Farhat Cabezas MD Primary Care Provider [phone] Farhat Cabezas MD Unavailable [phone] Farhat Cabezas MD Unavailable [phone] Source Comments In the event this information is protected by the Federal Confidentiality of Alcohol and Drug AbusePatient Records regulations: The Federal rules restrict any use of the information to criminally investigate or prosecute any alcohol or drug abuse patient.[facility] Encounter Details Date Type Department Care Team (Late st Contact Info) Description 11/15/2023 Patient Msg Cardiology [address] [place] [phone] Provider, Sheldon Abreu 11/16 Appointment Canceled Social [...] 2 12/21/2022 Data from: https://www.neighborhoodatlas.[facility]/. Last address used for calculation [address] [...] Contact Info) Description 09/13/2024 2:00 PM EDT [facility] Diabetic Education [facility] [address] [place] [address] [place] [address] [place] [address] Type 2 diabetes mellitus with hyperglycemia, with long-term current use of insulin (HCC) [E11.65, Z79.4] 11/20/2024 1:00 PM EDT [facility] Endocrinology [address] [place] [address] Valdez Suarez MD [address] [place] [address] [address] [place], [place] [phone] follow up in 6 months 01/03/2025 10:00 AM EST [facility] Endocrinology [address] [place] [address] Greg Nina APRN.DENTAL TECHNICIAN APPRENTICE [address] [place] [address] diabetes follow up in 3 months virtually. documented as of this encounter Visit Diagnoses Not on filedocumented in this encounter Care Teams Surgical Scrub Technician Relationship Specialty Start Date End Date Farhat Cabezas MD PCP - General Family Medicine 01/13/11 Farhat Cabezas MD Referring Family Medicine 01/08/22 Farhat Cabezas MD [address] [place] [address] Referring Family Medicine 07/26/24 documented as of this encounter
--- OUTSIDE RECORDS SUMMARY | 2024-09-13 10:46 | XMS_ITS | Encounter Summary ---
Author Organization [facility] Address [address] [place] [address] Care Team Providers Care International Marketing Intern Name Role Phone Farhat Cabezas MD Primary Care Provider [phone] Farhat Cabezas MD Unavailable [phone] Farhat Cabezas MD Unavailable [phone] Source Comments In the event this information is protected by the Federal Confidentiality of Alcohol and Drug AbusePatient Records regulations: The Federal rules restrict any use of the information to criminally investigate or prosecute any alcohol or drug abuse patient.[facility] Encounter Details Date Type Department Care Team (Late st Contact Info) Description 08/04/2018 Patient Msg General Surgery [address] [place] [address] Provider, Ccf Medication refill Social [...] EDT [facility] Diabetic Education [facility] [address] [place] [address] [place] [address] [place] [address] Type 2 diabetes mellitus with hyperglycemia, with long-term current use of insulin ([facility]) [E11.65, Z79.4] 11/20/2024 1:00 PM EDT [facility] Endocrinology [address] [place] [address] Valdez Suarez MD [address] [place] [address] [place] [address] follow up in 6 months 01/03/2025 10:00 AM [facility] Endocrinology [address] [place] [address] Greg Nina APRN.LABORER CAR BARN [address] [place] [address] diabetes follow up in 3 months virtually. documented as of this encounter Visit Diagnoses Not on filedocumented in this encounter Care Teams International Marketing Intern Relationship Specialty Start Date End Date Farhat Cabezas MD PCP - General Family Medicine 01/13/11 Farhat Cabezas MD Referring Family Medicine 01/08/22 Farhat Cabezas MD [address] [place] [address] Referring Family Medicine 07/26/24 documented as of this encounter
--- OUTSIDE RECORDS SUMMARY | 2024-09-13 10:46 | XMS_ITS | Encounter Summary ---
Demographics Address [address] [place] [address] Home Phone Mobile Phone Email Address Preferred Language ENG Marital Status Single Hindu Affiliation Unknown Race White Ethnic Group Not or Lati no Author Organization [facility] Address [address] [place] [address] Care Team Providers Care Tunnel Kiln Operator Name Role Phone Farhat Cabezas MD Primary Care Provider [phone] Farhat Cabezas MD Unavailable [phone] Farhat Cabezas MD Unavailable [phone] Source Comments In the event this information is protected by the Federal Confidentiality of Alcohol and Drug AbusePatient Records regulations: The Federal rules restrict any use of the information to criminally investigate or prosecute any alcohol or drug abuse patient.[facility] Encounter Details Date Type Department Care Team (Late st Contact Info) Description 03/08/2024 Patient Msg Radiology [address] [place] [address] Provider, Ccf MRI Questionnaire Social [...] risk 7 03/07/2024 Data from: https://www.neighborhoodatlas.[facility]/ . Last address used for [...] Contact Info) Description 09/13/2024 2:00 PM EDT [facility] Diabetic Education [facility] [address] [place] [address] [place] [address] [place] [address] Type 2 diabetes mellitus with hyperglycemia, with long-term current use of insulin (HCC) [E11.65, Z79.4] 11/20/2024 1:00 PM EDT [facility] Endocrinology [address] [place] [address] Valdez Suarez MD [address] [place] [address] [address] [place], [place] 8507335 follow up in 6 months 01/03/2025 10:00 AM EST [facility] Endocrinology [address] [place] [address] Greg Nina APRN.BAKING FACTORY WORKER [address] [place] [address] diabetes follow up in 3 months virtually. documented as of this encounter Visit Diagnoses Not on filedocumented in this encounter Care Teams Tunnel Kiln Operator Relationship Specialty Start Date End Date Farhat Cabezas MD PCP - General Family Medicine 01/13/11 Farhat Cabezas MD Referring Family Medicine 01/08/22 Farhat Cabezas MD [address] [place] [address] Referring Family Medicine 07/26/24 documented as of this encounter
--- OUTSIDE RECORDS SUMMARY | 2024-09-13 10:46 | XMS_ITS | Encounter Summary ---
Demographics Address [address] [facility] [place] [address] Home Phone Mobile Phone Email Address Preferred Language ENG Marital Status Single Scientology Affiliation Unknown Race White Ethnic Group Not or Lati no Author Organization [facility] Address [facility] [place] [address] Care Team Providers Care Regional Ehs Manager Name Role Phone Farhat Cabezas MD Primary Care Provider [phone] Farhat Cabezas MD Unavailable [phone] Farhat Cabezas MD Unavailable [phone] Source Comments In the event this [...] Description 09/18/2021 Patient Msg Sleep Psychology [address] [place] [address] [place] [address] [facility] [address] [place] [phone] follow up Social History Tobacco Use Types [...] N ot on file 07/19/2021 Data from: https://www.neighborhoodatlas.medicine.[facility]/. Last address used for [...] Contact Info) Description 09/13/2024 2:00 PM EDT [facility] Diabetic Education [facility] [address] [place] [address] [place] [address] [place] [address] Type 2 diabetes mellitus with hyperglycemia, with long-term current use of insulin (HCC) [E11.65, Z79.4] 11/20/2024 1:00 PM EDT [facility] Endocrinology [address] [place] [address] Valdez Suarez MD [address] [place] [address] [address] [place], [place] 7168535 follow up in 6 months 01/03/2025 10:00 AM EST [facility] Endocrinology [address] [place] [address] Greg Nina, MARITZA.FRONT DESK PERSON [address] [place] [address] diabetes follow up in 3 months virtually. documented as of this encounter Visit Diagnoses Not on filedocumented in this encounter Care Teams Regional Ehs Manager Relationship Specialty Start Date End Date Farhat Cabezas MD PCP - General Family Medicine 01/13/11 Farhat Cabezas MD Referring Family Medicine 01/08/22 Farhat Cabezas MD [address] [place] [address] Referring Family Medicine 07/26/24 documented as of this encounter
--- OUTSIDE RECORDS SUMMARY | 2024-09-13 10:46 | XMS_ITS | Encounter Summary ---
Demographics Address [address] [facility] [place] [address] Home Phone Mobile Phone Email Address Preferred Language ENG Marital Status Single Church Affiliation Unknown Race White Ethnic Group Not or Lati no Author Organization [facility] Address [address] [place] [address] Care Team Providers Care Decontamination Worker Name Role Phone Farhat Cabezas MD Primary Care Provider [phone] Farhat aCbezas MD Unavailable [phone] Farhat Cabezas MD Unavailable [phone] Source Comments In the event this [...] Integrative Med [address] [facility] [place] [id number] Provider, Ccf Request an Appointment Social History [...] file 01/16/2020 Data from: https://www.neighborhoodatlas.[facility]/. Last address used for calculation [...] Contact Info) Description 09/13/2024 2:00 PM EDT [facility] [address] [place], [place] [address]30 [place] [address] [place] [address] Type 2 diabetes mellitus with hyperglycemia, with long-term current use of insulin (HCC) [E11.65, Z79.4] 11/20/2024 1:00 PM EDT [facility] [address] [place] [address] Valdez Suarez MD [address] [place] [address] [place] [address] follow up in 6 months 01/03/2025 10:00 AM EST [facility] [address] [place] [address] Greg Nina APRN.[facility] [address] [place], [place] 5844139 diabetes follow up in 3 months virtually. documented as of this encounter Visit Diagnoses Not on filedocumented in this encounter Care Teams Decontamination Worker Relationship Specialty Start Date End Date Farhat Cabezas MD PCP - General Family Medicine 01/13/11 Farhat Cabezas MD Referring Family Medicine 01/08/22 Farhat Cabezas MD [address] [place] [address] Referring Family Medicine 07/26/24 documented as of this encounter
--- OUTSIDE RECORDS SUMMARY | 2024-09-13 10:46 | XMS_ITS | Encounter Summary ---
Demographics Address [address] [facility] [place] [address] Home Phone Mobile Phone Email Address Preferred Language ENG Marital Status Single Anglican Affiliation Unknown Race White Ethnic Group Not or Lati no Author Organization [facility] Address [address] [place] [address] Care Team Providers Care International Trade Specialist Name Role Phone Farhat Cabezas MD Primary Care Provider [phone] Farhat Cabezas MD Unavailable [phone] Farhat Cabezas MD Unavailable [phone] Source Comments In the event this information is protected by the Federal Confidentiality of Alcohol and Drug AbusePatient Records regulations: The Federal rules restrict any use of the information to criminally investigate or prosecute any alcohol or drug abuse patient.[facility] Encounter Details Date Type Department Care Team (Late st Contact Info) Description 08/01/2021 Patient Msg Rheumatology [address] [address] Lorenzo Perry DO 4302 [facility] 440 [place] [address] Request an Appointment Social History Tobacco Use [...] N ot on file 07/19/2021 Data from: https://www.neighborhoodatlas.medicine.[facility]/. Last address used for calculation 102 [...] Contact Info) Description 09/13/2024 2:[address] [facility] Diabetic Education [facility] [address] [place], [place] [address] Ignacio Garcia, SABIHA [address] [place] [address] Type 2 diabetes mellitus with hyperglycemia, with long-term current use of insulin (HCC) [E11.65, Z79.4] 11/20/2024 1:[address] [facility] Endocrinology [address] [place] [address] Valdez Suarez MD [address] [place] [address] [address] [place], [place] 8503935 follow up in 6 months 01/03/2025 10:[address] [facility] Endocrinology [address] [place] [address] Greg Nina, MARITZA.NUCLEAR PLANT TECHNICAL ADVISOR [address] [place] [address] diabetes follow up in 3 months virtually. documented as of this encounter Visit Diagnoses Not on filedocumented in this encounter Care Teams International Trade Specialist Relationship Specialty Start Date End Date Farhat Cabezas MD PCP - General Family Medicine 01/13/11 Farhat Cabezas MD Referring Family Medicine 01/08/22 Farhat Cabezas MD [address] [place] [address] Referring Family Medicine 07/26/24 documented as of this encounter
--- OUTSIDE RECORDS SUMMARY | 2024-09-13 10:46 | XMS_ITS | Encounter Summary ---
Demographics Address [address] [facility] [place] [address] Home Phone Mobile Phone Email Address Preferred Language ENG Marital Status Single Buddhist Affiliation Unknown Race White Ethnic Group Not or Lati no Author Organization [facility] Address [address] [place] [address] Care Team Providers Care Coffee Shop Attendant Name Role Phone Farhat Cabezas MD Primary Care Provider [phone] Farhat Cabezas MD Unavailable [phone] Farhat Cabezas MD Unavailable [phone] Source Comments In the event this information is protected by the Federal Confidentiality of Alcohol and Drug AbusePatient Records regulations: The Federal rules restrict any use of the information to criminally investigate or prosecute any alcohol or drug abuse patient.[facility] Encounter Details Date Type Department Care Team (Late st Contact Info) Description 08/01/2021 Patient Msg [facility] [address] [facility] [place] [id number] Provider, Ccf Appointment Request Social History Tobacco [...] N ot on file 07/19/2021 Data from: https://www.neighborhoodatlas.[facility]/. Last address used for calculation [address] 07/19/2021 Comments No Sex and Gender [...] PM EDT [facility] [address] [place] [address] [place] [address] [place] [address] Type 2 diabetes mellitus with hyperglycemia, with long-term current use of insulin (HCC) [E11.65, Z79.4] 11/20/2024 1:00 PM EDT [facility] Endocrinology [address] [place] [phone] Valdez Suarez MD [address] [place] [address] [place] [address] follow up in 6 months 01/03/2025 10:00 AM EST [facility] Endocrinology [address] [place] [address] Greg Nina, MARITZA.AUTOMATION TEST DEVELOPER [address] [place], [place] 8985839 diabetes follow up in 3 months virtually. documented as of this encounter Visit Diagnoses Not on filedocumented in this encounter Care Teams Coffee Shop Attendant Relationship Specialty Start Date End Date Farhat Cabezas MD PCP - General Family Medicine 01/13/11 Farhat Cabezas MD Referring Family Medicine 01/08/22 Farhat Cabezas MD [address]65 [place] [address] Referring Family Medicine 07/26/24 documented as of this encounter
--- OUTSIDE RECORDS SUMMARY | 2024-09-13 10:46 | XMS_ITS | Encounter Summary ---
Demographics Address [address] [place] [address] Home Phone Mobile Phone Email Address Preferred Language ENG Marital Status Single Pentecostal Affiliation Unknown Race White Ethnic Group Not or Lati no Author Organization [facility] Address [address] [place] [address] Care Team Providers Care Manager Practice Name Role Phone Farhat Cabezas MD Primary Care Provider [phone] Farhat Cabezas MD Unavailable [phone] Farhat Cabezas MD Unavailable [phone] Source Comments In the event this information is protected by the Federal Confidentiality of Alcohol and Drug AbusePatient Records regulations: The Federal rules restrict any use of the information to criminally investigate or prosecute any alcohol or drug abuse patient.[facility] Encounter Details Date Type Department Care Team (Late st Contact Info) Description 03/07/2024 [place] [address] Provider, Ccf MRI Screening Questionnaire Completion Required [...] is lower risk 7 03/07/2024 Data from: https://www.neighborhoodatlas.[facility]/ . Last address used for calculation [address] 03/07/2024 Comments No Sex and [...] Contact Info) Description 09/13/2024 2:00 PM EDT [facility] Diabetic Education [facility] [address] [place] [address] Ignacio Garcia, SABIHA [address] [place] [address] Type 2 diabetes mellitus with hyperglycemia, with long-term current use of insulin (HCC) [E11.65, Z79.4] 11/20/2024 1:00 PM EDT [facility] Endocrinology [address] [place] [address] Valdez Suarez MD [address] [place] [address] [address] [place], [place] [address] follow up in 6 months 01/03/2025 10:00 AM EST [facility] Endocrinology [address] [place] [address] Greg Nina APRN.POWER ENGINEER [address] [place], [place] 7649739 diabetes follow up in 3 months virtually. documented as of this encounter Visit Diagnoses Not on filedocumented in this encounter Care Teams Manager Practice Relationship Specialty Start Date End Date Farhat Cabezas MD PCP - General Family Medicine 01/13/11 Farhat Cabezas MD Referring Family Medicine 01/08/22 Farhat Cabezas MD [address] [place] [address] Referring Family Medicine 07/26/24 documented as of this encounter
--- OUTSIDE RECORDS SUMMARY | 2024-09-13 10:46 | XMS_ITS | Encounter Summary ---
Demographics Address [address] [place] [address] Home Phone Mobile Phone Email Address Preferred Language ENG Marital Status Single Faith Affiliation Unknown Race White Ethnic Group Not or Lati no Author Organization [facility] Address [address] [place] [address] Care Team Providers Care Community Development Specialist Name Role Phone Farhat Cabezas MD Primary Care Provider [phone] Farhat Cabezas MD Unavailable [phone] Farhat Cabezas MD Unavailable [phone] Source Comments In the event this information is protected by the Federal Confidentiality of Alcohol and Drug AbusePatient Records regulations: The Federal rules restrict any use of the information to criminally investigate or prosecute any alcohol or drug abuse patient.[facility] Encounter Details Date Type Department Care Team (Late st Contact Info) Description 09/15/2021 [place] [address] Provider, Ccf MRI Screening Questionnaire Completion Required [...] N ot on file 07/19/2021 Data from: https://www.neighborhoodatlas.[facility]/. Last address used for calculation [address] 07/19/2021 Comments No Sex and Gender [...] Info) Description 09/13/2024 2:00 PM EDT [facility] [address] [place] [address] [place] [address] [place] [address] Type 2 diabetes mellitus with hyperglycemia, with long-term current use of insulin (HCC) [E11.65, Z79.4] 11/20/2024 1:00 PM EDT [facility] Endocrinology [address] [place] [address] Valdez Suarez MD [address] [place] [address] [address] [place], [place] 9044235 follow up in 6 months 01/03/2025 10:00 AM EST [facility] Endocrinology [address] [place] [address] Greg Nina APRN.[facility] [address] [place], [place] 6068039 diabetes follow up in 3 months virtually. documented as of this encounter Visit Diagnoses Not on filedocumented in this encounter Care Teams Community Development Specialist Relationship Specialty Start Date End Date Farhat Cabezas MD PCP - General Family Medicine 01/13/11 Farhat Cabezas MD Referring Family Medicine 01/08/22 Farhat Cabezas MD [address] [place] [address] Referring Family Medicine 07/26/24 documented as of this encounter
--- OUTSIDE RECORDS SUMMARY | 2024-09-13 10:46 | XMS_ITS | Encounter Summary ---
Demographics Address [address] [place] [address] Home Phone Mobile Phone Email Address Preferred Language ENG Marital Status Single Confucianism Affiliation Unknown Race White Ethnic Group Not or Lati no Author Organization [facility] Address [address] [place] [address] Care Team Providers Care Jboss Developer Name Role Phone Farhat Cabezas MD Primary Care Provider [phone] Farhat Cabezas MD Unavailable [phone] Farhat Cabezas MD Unavailable [phone] Source Comments In the event this [...] Info) Description 10/05/2023 Patient Msg Cardiology [address] [facility] [facility] [place] [address] Provider, Ccf Appointment needs scheduling Social History [...] is lower risk 2 12/21/2022 Data from: https://www.neighborhoodatlas.[facility]/. Last address used for calculation [address] [...] Info) Description 09/13/2024 2:00 PM EDT [facility] Diabetic Education [facility] [address] [place] [address] [place] [address] [place] [address] Type 2 diabetes mellitus with hyperglycemia, with long-term current use of insulin (HCC) [E11.65, Z79.4] 11/20/2024 1:00 PM EDT [facility] Endocrinology [address] [place] [address] Valdez Suarez MD [address] [place] [address] [address] [place], [place] [phone] follow up in 6 months 01/03/2025 10:00 AM EST [facility] Endocrinology [address] [place] [address] Greg Nina, MARITZA.TREASURY ASSOCIATE [address] [place], [place] 9922039 diabetes follow up in 3 months virtually. documented as of this encounter Visit Diagnoses Not on filedocumented in this encounter Care Teams Jboss Developer Relationship Specialty Start Date End Date Farhat Cabezas MD PCP - General Family Medicine 01/13/11 Farhat Cabezas MD Referring Family Medicine 01/08/22 Farhat Cabezas MD [facility] [place] [address] Referring Family Medicine 07/26/24 documented as of this encounter
--- OUTSIDE RECORDS SUMMARY | 2024-09-13 10:46 | XMS_ITS | Encounter Summary ---
Demographics Address [address] [place] [address] Home Phone Mobile Phone Email Address Preferred Language ENG Marital Status Single Methodist Affiliation Unknown Race White Ethnic Group Not or Lati no Author Organization [facility] Address [address] [place] [address] Care Team Providers Care Advertising Solicitor Name Role Phone Farhat Cabezas MD Primary Care Provider [phone] Farhat Cabezas MD Unavailable [phone] Farhat Cabezas MD Unavailable [phone] Source Comments In the event this information is protected by the Federal Confidentiality of Alcohol and Drug AbusePatient Records regulations: The Federal rules restrict any use of the information to criminally investigate or prosecute any alcohol or drug abuse patient.[facility] Encounter Details Date Type Department Care Team (Late st Contact Info) Description 02/15/2024 [place] [address] Provider, Ccf MRI Screening Questionnaire Completion Required [...] is lower risk 2 12/21/2022 Data from: https://www.neighborhoodatlas.[facility]/. Last address used for calculation [...] Info) Description 09/13/2024 2:00 PM EDT [facility] Diabetic Education [facility] [address] [place], [place] 14[address] Ignacio Garcia, SABIHA [address] [place] [address] Type 2 diabetes mellitus with hyperglycemia, with long-term current use of insulin (HCC) [E11.65, Z79.4] 11/20/2024 1:00 PM EDT [facility] Endocrinology [address] [place] [address] Valdez Suarez MD [address] [place] [address] [place] [address] follow up in 6 months 01/03/2025 10:00 AM EST [facility] Endocrinology [address] [place] [address] Greg Nina, MARITZA.RAIL SIGNAL WORKER [address] [place], [place] 4815039 diabetes follow up in 3 months virtually. documented as of this encounter Visit Diagnoses Not on filedocumented in this encounter Care Teams Advertising Solicitor Relationship Specialty Start Date End Date Farhat Cabezas MD PCP - General Family Medicine 01/13/11 Farhat Cabezas MD Referring Family Medicine 01/08/22 Farhat Cabezas MD [address] [place] [address] Referring Family Medicine 07/26/24 documented as of this encounter
--- OUTSIDE RECORDS SUMMARY | 2024-09-13 10:46 | XMS_ITS | Encounter Summary ---
Demographics Address [address] [place] [address] Home Phone Mobile Phone Email Address Preferred Language ENG Marital Status Single Church Affiliation Unknown Race White Ethnic Group Not or Lati no Author Organization [facility] Address [address] [place] [address] Care Team Providers Care Horse Trekking Guide Name Role Phone Farhat Cabezas MD Primary Care Provider [phone] Farhat Cabezas MD Unavailable [phone] Farhat Cabezas MD Unavailable [phone] Source Comments In the event this information is protected by the Federal Confidentiality of Alcohol and Drug AbusePatient Records regulations: The Federal rules restrict any use of the information to criminally investigate or prosecute any alcohol or drug abuse patient.[facility] Encounter Details Date Type Department Care Team (Late st Contact Info) Description 04/22/2021 Get Medical Advice [facility]ology [address]00 [facility], [place] [address]53 Valdez Suarez MD [address] [place] [address] [place] [address] Suspicious nodule / [...] N ot on file 01/16/2020 Data from: https://www.neighborhoodatlas.medicine.[facility]/. Last address used for [...] with repeat US in 6 months, sent [employer] message documented in this encounter Plan of Treatment Upcoming Encounters Date Type Department Care Team (Late st Contact Info) Description 09/13/2024 2:00 PM EDT [facility] Diabetic Education [facility] [address] [place], [place] 7822930 [place] [address] [place] [address] Type 2 diabetes mellitus with hyperglycemia, with long-term current use of insulin (HCC) [E11.65, Z79.4] 11/20/2024 1:00 PM EDT [facility] Endocrinology [address] [place] [address] Valdez Suarez MD [address] [place] [address] [address] [place], [place] 8988635 follow up in 6 months 01/03/2025 10:00 AM EST [facility] Endocrinology [address] [place] [address] Greg Nina APRN.LEARNING DEVELOPER [address] [place] [address] diabetes follow up in 3 months virtually. documented as of this encounter Visit Diagnoses Diagnosis Hx of papillary thyroid carcinoma- Primary Personal history of malignant neoplasm of thyroid documented in this encounter Care Teams Horse Trekking Guide Relationship Specialty Start Date End Date Farhat Cabezas MD PCP - General Family Medicine 01/13/11 Farhat Cabezas MD Referring Family Medicine 01/08/22 Farhat Cabezas MD [address] [place] [address] Referring Family Medicine 07/26/24 documented as of this encounter
--- OUTSIDE RECORDS SUMMARY | 2024-09-13 10:46 | XMS_ITS | Encounter Summary ---
Demographics Address [address] [place] [address] Home Phone Mobile Phone Email Address Preferred Language ENG Marital Status Single Voodoo Affiliation Unknown Race White Ethnic Group Not or Lati no Author Organization [facility] Address [facility] [place] [address] Care Team Providers Care Electric Drill Operator Name Role Phone Farhat Cabezas MD Primary Care Provider [phone] Farhat Cabezas MD Unavailable [phone] Farhat Cabzeas MD Unavailable [phone] Source Comments In the event this [...] Get Medical Advice General Surgery BMI PSYL [address] [place], [place] [phone] Graciela Hoyt, PhD [address] [phone] RE: Non-Urgent Medical Question Social History Tobacco [...] Contact Info) Description 09/13/2024 2:00 PM EDT [facility] Diabetic Education [facility] [address] [place] [address] [place] [address] [place], [place] [phone] Type 2 diabetes mellitus with hyperglycemia, with long-term current use of insulin (HCC) [E11.65, Z79.4] 11/20/2024 1:00 PM EDT [facility] Endocrinology [address] [place] [address] Valdez Suarez MD [address] [place] [address] [place] [address] follow up in 6 months 01/03/2025 10:00 AM [facility] Endocrinology [address] [place] [address] Greg Nina APRN.CARDIOLOGY CLINICAL CONSULTANT [address] [place], [place] 8216839 diabetes follow up in 3 months virtually. documented as of this encounter Visit Diagnoses Not on filedocumented in this encounter Care Teams Electric Drill Operator Relationship Specialty Start Date End Date Farhat Cabezas MD PCP - General Family Medicine 01/13/11 Farhat Cabezas MD Referring Family Medicine 01/08/22 Farhat Cabezas MD [address] [place] [address] Referring Family Medicine 07/26/24 documented as of this encounter
--- OUTSIDE RECORDS SUMMARY | 2024-09-13 10:46 | XMS_ITS | Encounter Summary ---
Demographics Address [address] [facility] [place] [address] Home Phone Mobile Phone Email Address Preferred Language ENG Marital Status Single Advent Affiliation Unknown Race White Ethnic Group Not or Lati no Author Organization [facility] Address [address] [place] [address] Care Team Providers Care Event Set Up Specialist Name Role Phone Farhat Cabezas MD Primary Care Provider [phone] Farhat Cabezas MD Unavailable [phone] Farhat Cabezas MD Unavailable [phone] Source Comments In the event this information is protected by the Federal Confidentiality of Alcohol and Drug AbusePatient Records regulations: The Federal rules restrict any use of the information to criminally investigate or prosecute any alcohol or drug abuse patient.[facility] Encounter Details Date Type Department Care Team (Late st Contact Info) Description 08/04/2021 Patient Msg Neurology [address] [place] [address] Sara Nguyen, MARITZA.GARAGE HAND [address] [facility] 1 [place] [address] Sonata Refill Social History Tobacco Use Types [...] N ot on file 07/19/2021 Data from: https://www.neighborhoodatlas.medicine.[facility]/. Last address used for calculation [address] [...] EDT [facility] Diabetic Education [facility] [address] [place] [address] [place] [address] [place] [address] Type 2 diabetes mellitus with hyperglycemia, with long-term current use of insulin (HCC) [E11.65, Z79.4] 11/20/2024 1:00 PM EDT [facility] Endocrinology [address] [place] [address] Valdez Suarez MD [address] [place] [address] [address] [place], [place] 4461335 follow up in 6 months 01/03/2025 10:00 AM EST [facility] Endocrinology [address] [place] [address] Greg Nina, MARITZA.GARAGE HAND [address] [place], [place] [phone] diabetes follow up in 3 months virtually. documented as of this encounter Visit Diagnoses Not on filedocumented in this encounter Care Teams Event Set Up Specialist Relationship Specialty Start Date End Date Farhat Cabezas MD PCP - General Family Medicine 01/13/11 Farhat Cabezas MD Referring Family Medicine 01/08/22 Farhat Cabezas MD [address] [place] [address] Referring Family Medicine 07/26/24 documented as of this encounter
--- OUTSIDE RECORDS SUMMARY | 2024-09-13 10:46 | XMS_ITS | Encounter Summary ---
Demographics Address [address] [place] [address] Home Phone Mobile Phone Email Address Preferred Language ENG Marital Status Single Rastafari Affiliation Unknown Race White Ethnic Group Not or Lati no Author Organization [facility] Address [address] [place] [address] Care Team Providers Care Prosthetic Technician Name Role Phone Farhat Cabezas MD Primary Care Provider [phone] Farhat Cabezas MD Unavailable [phone] Farhat Cabezas MD Unavailable [phone] Source Comments In the event this information is protected by the Federal Confidentiality of Alcohol and Drug AbusePatient Records regulations: The Federal rules restrict any use of the information to criminally investigate or prosecute any alcohol or drug abuse patient.[facility] Encounter Details Date Type Department Care Team (Late st Contact Info) Description 05/27/2021 Get Medical Advice BMI [facility] [address] [place], [place] [id number] Rachel Yi MD [address] [place] [address] weight managment Social History Tobacco [...] ot on file 01/16/2020 Data from: https://www.neighborhoodatlas.medicine.[facility]/. Last address [...] Info) Description 09/13/2024 2:00 PM EDT [facility] Diabetic Education [facility] [address] [place] [address] [place] [address] [place] [address] Type 2 diabetes mellitus with hyperglycemia, with long-term current use of insulin (HCC) [E11.65, Z79.4] 11/20/2024 1:00 PM EDT [facility] Endocrinology [address] [place] [phone] Valdez Suarez MD [address] [place] [address] [place], [place] [id number] follow up in 6 months 01/03/2025 10:00 AM EST [facility] Endocrinology [address] [place] [phone] Greg Nina, MARITZA.[employer] [address] [place], [place] [phone] diabetes follow up in 3 months virtually. documented as of this encounter Visit Diagnoses Not on filedocumented in this encounter Care Teams Prosthetic Technician Relationship Specialty Start Date End Date Farhat Cabezas MD PCP - General Family Medicine 01/13/11 Farhat Cabezas MD Referring Family Medicine 01/08/22 Farhat Cabezas MD [address] [place] [address] Referring Family Medicine 07/26/24 documented as of this encounter
--- OUTSIDE RECORDS SUMMARY | 2024-09-13 10:46 | XMS_ITS | Encounter Summary ---
Demographics Address [address] [facility] [place] [address] Home Phone Mobile Phone Email Address Preferred Language ENG Marital Status Single Methodist Affiliation Unknown Race White Ethnic Group Not or Lati no Author Organization [facility] Address [address] [place] [address] Care Team Providers Care Survey Crew Chief Name Role Phone Farhat Cabezas MD Primary Care Provider [phone] Farhat Cabezas MD Unavailable [phone] Farhat Cabezas MD Unavailable [phone] Source Comments In the event this information is protected by the Federal Confidentiality of Alcohol and Drug AbusePatient Records regulations: The Federal rules restrict any use of the information to criminally investigate or prosecute any alcohol or drug abuse patient.[facility] Encounter Details Date Type Department Care Team (Late st Contact Info) Description 10/06/2023 Patient Msg Ophthalmology [address] [place], [place] [id number] Theron Barajas OD [address] [place] [address] Appointment Request Social History Tobacco [...] lower risk 2 12/21/2022 Data from: https://www.neighborhoodatlas.medicine.[facility]/. Last address used for calculation [...] Contact Info) Description 09/13/2024 2:00 PM EDT [facility] Diabetic Education [facility] [address] [place] [address] [place] [address] [place] [address] Type 2 diabetes mellitus with hyperglycemia, with long-term current use of insulin (HCC) [E11.65, Z79.4] 11/20/2024 1:00 PM EDT [facility] Endocrinology [address] [place] [phone] Valdez Suarez MD [address] [place] [address] [address] [place], [place] [phone] follow up in 6 months 01/03/2025 10:00 AM EST [facility] Endocrinology [address] [place] [address] Greg Nina APRN.[facility] [address] [place], [place] [phone] diabetes follow up in 3 months virtually. documented as of this encounter Visit Diagnoses Not on filedocumented in this encounter Care Teams Survey Crew Chief Relationship Specialty Start Date End Date Farhat Cabezas MD PCP - General Family Medicine 01/13/11 Farhat Cabezas MD Referring Family Medicine 01/08/22 Farhat Cabezas MD [address] [place] [address] Referring Family Medicine 07/26/24 documented as of this encounter
--- OUTSIDE RECORDS SUMMARY | 2024-09-13 10:46 | XMS_ITS | Encounter Summary ---
Demographics Address [address] [place] [address] Home Phone Mobile Phone Email Address Preferred Language ENG Marital Status Single Yazidism Affiliation Unknown Race White Ethnic Group Not or Lati no Author Organization [facility] Address [address] [place] [address] Care Team Providers Care Lung Splitter Name Role Phone Farhat Cabezas MD Primary Care Provider [phone] Farhat Cabezas MD Unavailable [phone] Farhat Cabezas MD Unavailable [phone] Source Comments In the event this [...] Description 06/09/2021 Get Medical Advice Endocrinology [address] [facility] [place], [place] [phone] Valdez Suarez MD [address] [place], [place] [address]Con[address] [facility] [place] [address] Thyroid antboties Social History Tobacco Use [...] ot on file 01/16/2020 Data from: https://www.neighborhoodatlas.medicine.[facility]/. Last address used for [...] Contact Info) Description 09/13/2024 2:00 PM EDT [facility] Diabetic Education [facility] [address] [place] [address] [place] [address] [place], [place] [phone] Type 2 diabetes mellitus with hyperglycemia, with long-term current use of insulin (HCC) [E11.65, Z79.4] 11/20/2024 1:00 PM EDT [facility] Endocrinology [address] [place] [phone] Valdez Suarez MD [address] [place] [address] [address] [place], [place] [phone] follow up in 6 months 01/03/2025 10:00 AM EST [facility] Endocrinology [address] [place] [phone] Greg Nina, MARITZA.[facility] [address] [place], [place] [phone] diabetes follow up in 3 months virtually. documented as of this encounter Visit Diagnoses Not on filedocumented in this encounter Care Teams Lung Splitter Relationship Specialty Start Date End Date Farhat Cabezas MD PCP - General Family Medicine 01/13/11 Farhat Cabezas MD Referring Family Medicine 01/08/22 Farhat Cabezas MD [address] [place] [address] Referring Family Medicine 07/26/24 documented as of this encounter
--- OUTSIDE RECORDS SUMMARY | 2024-09-13 10:46 | XMS_ITS | Encounter Summary ---
Demographics Address [address] [place] [address] Home Phone Mobile Phone Email Address Preferred Language ENG Marital Status Single Rastafari Affiliation Unknown Race White Ethnic Group Not or Lati no Author Organization [facility] Address [address] [place] [address] Care Team Providers Care Funeral Director'S Assistant Name Role Phone Farhat Cabezas MD Primary Care Provider [phone] Farhat Cabezas MD Unavailable [phone] Farhat Cabezas MD Unavailable [phone] Source Comments In the event this information is protected by the Federal Confidentiality of Alcohol and Drug AbusePatient Records regulations: The Federal rules restrict any use of the information to criminally investigate or prosecute any alcohol or drug abuse patient.[facility] Encounter Details Date Type Department Care Team (Late st Contact Info) Description 06/09/2021 Get Medical Advice Neurology [address] [place] [address] Jaelyn Rangel MD NO FORWARDING [...] N ot on file 01/16/2020 Data from: https://www.neighborhoodatlas.[facility]/. Last address used for calculation [...] Arnold RN - 06/09/2021 2:00 PM EDT Screwp[employer] message routed to provider for review. documented in this encounter Plan of Treatment Upcoming Encounters Date Type Department Care Team (Late st Contact Info) Description 09/13/2024 2:00 PM EDT [facility] Diabetic Education [facility] [address] [place] [address] [place] [address] [place] [address] Type 2 diabetes mellitus with hyperglycemia, with long-term current use of insulin (HCC) [E11.65, Z79.4] 11/20/2024 1:00 PM EDT [facility] Endocrinology [address] [place] [address] Valdez Suarez MD [address] [place] [address] [place], [place] [phone] follow up in 6 months 01/03/2025 10:00 AM EST [facility] Endocrinology [address] [place] [address] Greg Nina APRN.[employer] [address] [place] [address] diabetes follow up in 3 months virtually. documented as of this encounter Visit Diagnoses Not on filedocumented in this encounter Care Teams Funeral Director'S Assistant Relationship Specialty Start Date End Date Farhat Cabezas MD PCP - General Family Medicine 01/13/11 Farhat Cabezas MD Referring Family Medicine 01/08/22 Farhat Cabezas MD [address] [place] [address] Referring Family Medicine 07/26/24 documented as of this encounter
== END 2024-08-17 23:59 | disposition home or self-care (01) ==
LOC: INF 10:38
PROVIDERS: PCP Family Medicine; Visit Provider Family Medicine
DX: D50.9 Iron deficiency anemia, unspecified (principal)
CPT/HCPCS: 96365; J1439

== ENCOUNTER 2024-08-17 13:08 | Emergency (ER) | payer MEDICARE, MEDICAID, SELFPAY ==
--- OUTSIDE RECORDS SUMMARY | 2024-06-27 09:30 | XMS_ITS ---
Author Organization [facility] Address [address] [place] [address] Care Team Providers Care Earth Observations Chief Scientist Name Role Phone Jason Lemon Primary Care Provider REASON FOR VISIT NEW PT EXAM Encounters Encounter Location Date Provider Diagnosis [facility] [place] [address] [place] [address] 06/27/2024 Jason Lemon Plan Of Treatment No Information Progress Notes * PRADIP MORFINDOB:1975 (49 yo F)Acc No.[id number]:06/27/2024 Patient: ZENAIDA JOHNSONWNA Provider: Jaquelin Lemon DDS :1975 A ge:48 Y S ex:Female Date:06/27/2024 Address:[address], [id number] Subjective: * Chief Complaints: * 1 . NEW PT EXAM. * Medical History: Objective: * Vitals: Assessment: Plan: * Treatment: * Images: * Electronic signature of Ashkan Lemon DDS on 08/17/2024 at 01:16 PM EDT Sign off status: Pending * Provider: Jaquelin Lemon DDS Date: 06/27/2024 Generated for Any soares/Karen/aBnitting on: 08/17/2024 01:16 PM EDT
--- OUTSIDE RECORDS SUMMARY | 2024-07-20 09:07 | XMS_ITS | Continuity of Care Document ---
Author Organization 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 Name Role Phone Bella Tadeo Unavailable Unavaila ble Allergies, Adverse Reactions, Alerts Substance Reaction Status Criticality ibuprofen Active No Information Medications Medication Instructions Dosage Effective Dates (start - stop) Status Comments levothyroxine 75 mcg capsule take 1 capsule by oral route every day 75 MCG - Active Trulicity 3 mg/0.5 mL subcutaneous pen injector inject (3MG) by subcutaneous route every week 3 MG - Active propofol 10 mg/mL intravenous emulsion infuse (5MCG/KG/MIN) by continuous infusion route 5 MCG/KG/MIN - Active gabapentin 300 mg/6 mL (6 mL) oral solution take 6 milliliter by oral route 3 times every day 300 MG - Active Ambien CR 12.5 mg tablet,extended release take 1 tablet by oral route every day at bedtime 12.5 MG - Active Phenergan 25 mg/mL injection solution inject 1 milliliter by intramuscular route once, may repeat in 2 hours 25 MG - Active Procedures Procedure Date PSYTX PT&/FAMILY 60 MINUTES PSYTX PT&/FAMILY 60 MINUTES PSYTX PT&/FAMILY 60 MINUTES PSYTX PT&/FAMILY 60 MINUTES PSYTX PT&/FAMILY 60 MINUTES PSYTX PT&/FAMILY 60 MINUTES Acute Detox Practice Manager Acute Detox Practice Manager Acute Detox Practice Manager ROUTINE VENIPUNCTURE DRUG TEST PRSMV DIR OPT OBS URINE TEST Acute Detox Practice Manager PSYTX PT&/FAMILY 60 MINUTES PSYTX PT&/FAMILY 60 MINUTES PSYTX PT&/FAMILY 60 MINUTES PSYTX PT&/FAMILY 60 MINUTES PSYTX PT&/FAMILY 60 MINUTES PSYTX PT&/FAMILY 60 MINUTES PSYTX PT&/FAMILY 60 MINUTES PSYTX PT&/FAMILY 60 MINUTES PSYTX PT&/FAMILY 60 MINUTES PSYTX PT&/FAMILY 60 MINUTES PSYTX PT&/FAMILY 60 MINUTES PSYTX PT&/FAMILY 60 MINUTES PSYTX PT&/FAMILY 60 MINUTES PSYTX PT&/FAMILY 60 MINUTES Intraoral-periapical 1st Film Nhbmsbuep-vehssztats-luol Additional Nov Bitewig-single Film Nutrit Couns For Control Of [place] Dis Nov Limited Oral Eval PSYTX PT&/FAMILY 60 MINUTES PSYTX PT&/FAMILY 60 MINUTES PSYTX PT&/FAMILY 60 MINUTES PSYTX PT&/FAMILY 60 MINUTES PSYTX PT&/FAMILY 60 MINUTES PSYTX PT&/FAMILY 60 MINUTES PSYTX PT&/FAMILY 60 MINUTES PSYTX PT&/FAMILY 60 MINUTES No Charge PSYTX PT&/FAMILY 60 MINUTES PSYTX PT&/FAMILY 60 MINUTES PSYTX PT&/FAMILY 60 MINUTES PSYTX PT&/FAMILY 60 MINUTES PSYTX PT&/FAMILY 60 MINUTES PSYTX PT&/FAMILY 60 MINUTES PSYTX PT&/FAMILY 60 MINUTES PSYTX PT&/FAMILY 60 MINUTES PSYTX PT&/FAMILY 60 MINUTES PSYTX PT&/FAMILY 60 MINUTES PSYTX PT&/FAMILY 60 MINUTES PSYTX PT&/FAMILY 60 MINUTES PSYCH DIAGNOSTIC EVALUATION Acute Detox Practice Manager Acute Detox Practice Manager Acute Detox Practice Manager Acute Detox Practice Manager Acute Detox Practice Manager DRUG TEST PRSMV DIR OPT OBS URINE TEST Acute Detox Practice Manager DRUG TEST PRSMV DIR OPT OBS URINE TEST Acute Detox Practice Manager Bitewig-single Film Intraoral-periapical 1st Film Qgnaoshvc-dcjdyiqwsq-razj Additional June Csjvprwxa-xhvuwuzewa-krqb Additional June Oral Hygiene Instruction Limited Oral Eval Acute Detox Practice Manager Acute Detox Practice Manager Acute Detox Practice Manager Acute Detox Practice Manager DRUG TEST PRSMV DIR OPT OBS URINE TEST Acute Detox Practice Manager Advance Directives Directive Yes / No Effective Date File Name No Information Encounters Encounter Description Practice Location Reason(s) For Visit Diagnoses Date Provider Providers Copied on Encounter PSYTX PT&/FAMILY 60 MINUTES [facility], [address] [place] [address], [place], [place], [id number] , [place] tel:[phone] [facility] Sedative, hypnotic or anxiolytic dependence, uncomplicatedPost-t raumatic stress disorder, chronicMajor depressive disorder, recurrent severe without psychotic featuresAgoraphobia with panic disorder 5 Antelmo Blanco. [address] [place], [address], . tel: [phone] PSYTX PT&/FAMILY 60 MINUTES [facility], [address] [place] [address], [id number] , [place] tel: [phone] [facility] Sedative, hypnotic or anxiolytic dependence, uncomplicatedPost-t raumatic stress disorder, chronicMajor depressive disorder, recurrent severe without psychotic featuresAgoraphobia with panic disorder 5 Antelmo Blanco. [address] [place], [address], . tel: [phone] PSYTX PT&/FAMILY 60 MINUTES [facility], [address] [place] [address], [id number] , [place] tel: [phone] [facility] Sedative, hypnotic or anxiolytic dependence, uncomplicatedPost-t raumatic stress disorder, chronicMajor depressive disorder, recurrent severe without psychotic featuresAgoraphobia with panic disorder 5 Antelmo Balnco. [address] [place], [address], . tel: [phone] PSYTX PT&/FAMILY 60 MINUTES [facility], [address] [place] [address], [id number] , [place] tel: [phone] [facility] Sedative, hypnotic or anxiolytic dependence, uncomplicatedPost-t raumatic stress disorder, chronicMajor depressive disorder, recurrent severe without psychotic featuresAgoraphobia with panic disorder 5 Antelmo Blanco. [address] [place], [address], . tel: [phone] PSYTX PT&/FAMILY 60 MINUTES [facility], [address] [place] [address], [id number] , tel: [phone] [facility] Sedative, hypnotic or anxiolytic dependence, uncomplicatedPost-t raumatic stress disorder, chronicMajor depressive disorder, recurrent severe without psychotic featuresAgoraphobia with panic disorder Apr-1 - 5 Antelmo Blanco. [address] [place], [address], [place]. tel: [phone] PSYTX PT&/FAMILY 60 MINUTES [facility], [address], [place], [id number] , [place] tel: [phone] [facility] Sedative, hypnotic or anxiolytic dependence, uncomplicatedPost-t raumatic stress disorder, chronicMajor depressive disorder, recurrent severe without psychotic featuresAgoraphobia with panic disorder Apr-0 5 Antelmo Blacno. [address] [place], [address], [place]. tel: [phone] [facility], [address] [place] [address], [id number] , [place] tel: [phone] [facility] Detox No Information Apr- 5 Klidas Brooke. [address], [place], [id number] , [place]. tel: [phone] [facility], [address] [place] [address], [id number] , [place] tel: [phone] [facility] No Information 5 Tom Garza. [address] [place], [address], [place]. tel: [phone] [facility], [address], [place], [id number] , [place] tel: [phone] [facility] No Information Apr- 5 Klidas Brooke. [address] [place] [address], [id number] , [place]. tel: [phone] [facility], [address] [place] [address], [id number] , [place] tel: [phone] [facility] Det[facility] No Information Apr- 5 Klidas Brooke. [address] [place] [address], [id number] , [place]. tel: [phone] PSYTX PT&/FAMILY 60 MINUTES [facility], [address] [place] [address], [id number] , [place] tel: [phone] [facility] Sedative, hypnotic or anxiolytic dependence, uncomplicatedPost-t raumatic stress disorder, chronicMajor depressive disorder, recurrent severe without psychotic featuresAgoraphobia with panic disorder 5 Antelmo Blanco. [address] [place], [address], [place]. tel: [phone] PSYTX PT&/FAMILY 60 MINUTES [facility], [address] [place] [address], [id number] , [place] tel: [phone] [facility] Sedative, hypnotic or anxiolytic dependence, uncomplicatedPost-t raumatic stress disorder, chronicMajor depressive disorder, recurrent severe without psychotic featuresAgoraphobia with panic disorder 5 Antelmo Blanco. [address] [place] [address], [address], [place]. tel: [phone] PSYTX PT&/FAMILY 60 MINUTES [facility], [address] [place] [address], [id number] , [place] tel: [phone] [facility] Sedative, hypnotic or anxiolytic dependence, uncomplicatedPost-t raumatic stress disorder, chronicMajor depressive disorder, recurrent severe without psychotic featuresAgoraphobia with panic disorder 4 Antelmo Blanco. [address] [place] [address], [address], [place]. tel: [phone] PSYTX PT&/FAMILY 60 MINUTES [facility], [address] [place] [address], [id number] , [place] tel: [phone] [facility] Sedative, hypnotic or anxiolytic dependence, uncomplicatedPanic disorder [episodic paroxysmal anxiety]Post-trauma tic stress disorder, chronicMajor depressive disorder, recurrent severe without psychotic features 4 Antelmo Blanco. [address] [place] [address], [address], [place]. tel: [phone] PSYTX PT&/FAMILY 60 MINUTES [facility], [address], [place], [id number] , [place] tel: [phone] [facility] Sedative, hypnotic or anxiolytic dependence, uncomplicatedPanic disorder [episodic paroxysmal anxiety]Post-trauma tic stress disorder, chronicMajor depressive disorder, recurrent severe without psychotic features 4 Antelmo Blanco. [address] [place], [address], [place]. tel: [phone] PSYTX PT&/FAMILY 60 MINUTES [facility], [address], [place], [id number] , [place] tel: [phone] [facility] Sedative, hypnotic or anxiolytic dependence, uncomplicatedPanic disorder [episodic paroxysmal anxiety]Post-trauma tic stress disorder, chronicMajor depressive disorder, recurrent severe without psychotic features 4 Antelmo Blanco. [address] [place], [address], [place]. tel: [phone] PSYTX PT&/FAMILY 60 MINUTES [facility], [address], [place], [id number] , [place] tel: [phone] [facility] Sedative, hypnotic or anxiolytic dependence, uncomplicatedPanic disorder [episodic paroxysmal anxiety]Post-trauma tic stress disorder, chronicMajor depressive disorder, recurrent severe without psychotic features 4 Antelmo Blanco. [address] [place], [address], [place]. tel: [phone] PSYTX PT&/FAMILY 60 MINUTES [facility], [address] [place] [address], [id number] , [place] tel: [phone] [facility] Sedative, hypnotic or anxiolytic dependence, uncomplicatedPanic disorder [episodic paroxysmal anxiety]Post-trauma tic stress disorder, chronicMajor depressive disorder, recurrent severe without psychotic features 4 Antelmo Blanco. [address] [place], [address], [place]. tel: [phone] PSYTX PT&/FAMILY 60 MINUTES [facility], [address], [place], [id number] , [place] tel: [phone] [facility] Sedative, hypnotic or anxiolytic dependence, uncomplicatedPanic disorder [episodic paroxysmal anxiety]Post-trauma tic stress disorder, chronicMajor depressive disorder, recurrent severe without psychotic features 4 Antelmo Blanco. [address] [place], [address], [place]. tel: [phone] PSYTX PT&/FAMILY 60 MINUTES [facility], [address], [place], [id number] , [place] tel: [phone] [facility] Sedative, hypnotic or anxiolytic dependence, uncomplicatedPanic disorder [episodic paroxysmal anxiety]Post-trauma tic stress disorder, chronicMajor depressive disorder, recurrent severe without psychotic features 4 Antelmo Blanco. [address] [place] [address], [address], [place]. tel: [phone] PSYTX PT&/FAMILY 60 MINUTES [facility], [address] [place] [address], [id number] , [place] tel: [phone] [facility] Sedative, hypnotic or anxiolytic dependence, uncomplicatedPanic disorder [episodic paroxysmal anxiety]Post-trauma tic stress disorder, chronicMajor depressive disorder, recurrent severe without psychotic features 4 Antelmo Blanco. [address] [place], [address], [place]. tel: [phone] PSYTX PT&/FAMILY 60 MINUTES [facility], [address] [place] [address], [id number] , [place] tel: [phone] [facility] Sedative, hypnotic or anxiolytic dependence, uncomplicatedPanic disorder [episodic paroxysmal anxiety]Post-trauma tic stress disorder, chronicMajor depressive disorder, recurrent severe without psychotic features 4 Antelmo Blanco. [address] [place], [address], [place]. tel: [phone] PSYTX PT&/FAMILY 60 MINUTES [facility], [address] [place] [address], [id number] , [place] tel: [phone] [facility] Sedative, hypnotic or anxiolytic dependence, uncomplicatedPanic disorder [episodic paroxysmal anxiety]Post-trauma tic stress disorder, chronicMajor depressive disorder, recurrent severe without psychotic features Oct-1 4 Antelmo Blanco. [address] [place], [address], [place]. tel: [phone] PSYTX PT&/FAMILY 60 MINUTES [facility], [address], [place], [id number] , [place] tel: [phone] [facility] Sedative, hypnotic or anxiolytic dependence, uncomplicatedPanic disorder [episodic paroxysmal anxiety]Post-trauma tic stress disorder, chronicMajor depressive disorder, recurrent severe without psychotic features Nov-0 4 Antelmo Blanco. [address] [place], [address], [place]. tel: [phone] [facility], [address] [place] [address], [id number] , [place] tel: [phone] Dental Clinic er (chief complaint) Encounter for screening for dental disorders 0 4 Geoff Dahl. [address], [place], [id number] , [place]. tel: [phone] PSYTX PT&/FAMILY 60 MINUTES [facility], [address] [place] [address], [id number] , [place] tel: [phone] [facility] Sedative, hypnotic or anxiolytic dependence, uncomplicatedPanic disorder [episodic paroxysmal anxiety]Post-trauma tic stress disorder, chronicMajor depressive disorder, recurrent severe without psychotic features Oct-0 4 Antelmo Blanco. [address] [place], [address], [place]. tel: [phone] PSYTX PT&/FAMILY 60 MINUTES [facility], [address] [place] [address], [id number] , [place] tel: [phone] [facility] Panic disorder [episodic paroxysmal anxiety]Post-trauma tic stress disorder, chronicMajor depressive disorder, recurrent, moderate Oct-0 4 Antelmo Blanco. [address] [place], [address], [place]. tel:[phone] PSYTX PT&/FAMILY 60 MINUTES [facility], [address], [place], [id number] , [place] tel: [phone] [facility] Panic disorder [episodic paroxysmal anxiety]Post-trauma tic stress disorder, chronicMajor depressive disorder, recurrent, moderate Oct-0 4 Antelmo Blanco. [address] [place], [address], [place]. tel: [phone] PSYTX PT&/FAMILY 60 MINUTES [facility], [address] [place] [address], [id number] , [place] tel: [phone] [facility] Panic disorder [episodic paroxysmal anxiety]Post-trauma tic stress disorder, chronicMajor depressive disorder, recurrent, moderate Sep-2 4 Antelmo Blanco. [address] [place], [address], [place]. tel: [phone] PSYTX PT&/FAMILY 60 MINUTES [facility], [address] [place] [address], [id number] , [place] tel: [phone] [facility] Panic disorder [episodic paroxysmal anxiety]Post-trauma tic stress disorder, chronic Sep-2 4 Antelmo Blanco. [address] [place], [address], [place]. tel: [phone] PSYTX PT&/FAMILY 60 MINUTES [facility], [address] [place] [address], [id number] , [place] tel: [phone] [facility] Panic disorder [episodic paroxysmal anxiety]Post-trauma tic stress disorder, chronic Sep-1 4 Antelmo Blanco. [address] [place], [address], [place]. tel: [phone] PSYTX PT&/FAMILY 60 MINUTES [facility], [address] [place] [address], [id number] , [place] tel:+ [phone] [facility] Panic disorder [episodic paroxysmal anxiety] Sep- 4 Antelmo Blanco. [address] [place], [address], [place]. tel: [phone] PSYTX PT&/FAMILY 60 MINUTES [facility], [address], [place], [id number] , [place] tel: [phone] [facility] Panic disorder [episodic paroxysmal anxiety] Sep-0 4 Antelmo Blanco. [address] [place], [address], [place]. tel: [phone] [facility], [address] [place] [address], [id number] , [place] tel: [phone] [facility] Panic disorder [episodic paroxysmal anxiety] Sep-0 4 Antelmo Blanco. [address] [place], [address], [place]. tel: [phone] PSYTX PT&/FAMILY 60 MINUTES [facility], [address] [place] [address], [id number] , [place] tel: [phone] [facility] Panic disorder [episodic paroxysmal anxiety]Major depressive disorder, recurrent severe without psychotic features Sep-0 4 Antelmo Blanco. [address] [place], [address], [place]. tel: [phone] PSYTX PT&/FAMILY 60 MINUTES [facility], [address] [place] [address], [id number] , [place] tel: [phone] [facility] Panic disorder [episodic paroxysmal anxiety]Major depressive disorder, recurrent severe without psychotic features 4 Antelmo Blanco. [address] [place], [address], [place]. tel: [phone] PSYTX PT&/FAMILY 60 MINUTES [facility], [address] [place] [address], [id number] , [place] tel: [phone] [facility] Panic disorder [episodic paroxysmal anxiety]Major depressive disorder, recurrent severe without psychotic features 4 Antelmo VEGAReddRadha SandersBella. [address] [place], [address], [place]. tel: [phone] PSYTX PT&/FAMILY 60 MINUTES [facility], [address], [place], [id number] , [place] tel: [phone] [facility] Panic disorder [episodic paroxysmal anxiety]Major depressive disorder, recurrent severe without psychotic features 4 Antelmo Blanco. [address] [place], [address], [place]. tel: [phone] PSYTX PT&/FAMILY 60 MINUTES [facility], [address] [place] [address], [id number] , [place] tel: [phone] [facility] Panic disorder [episodic paroxysmal anxiety]Major depressive disorder, recurrent severe without psychotic features 0 4 Antelmo Sandersnifer. [address] [place], [address], [place]. tel: [phone] PSYTX PT&/FAMILY 60 MINUTES [facility], [address] [place] [address], [id number] , [place] tel: [phone] [facility] Panic disorder [episodic paroxysmal anxiety]Major depressive disorder, recurrent severe without psychotic features 0 4 Antelmo Blanco. [address] [place], [address], [place]. tel: [phone] PSYTX PT&/FAMILY 60 MINUTES [facility], [address] [place] [address], [id number] , [place] tel: [phone] [facility] Panic disorder [episodic paroxysmal anxiety]Major depressive disorder, recurrent severe without psychotic features 0 4 Antelmo Blanco. [address] [place], [address], [place]. tel:[phone] PSYTX PT&/FAMILY 60 MINUTES [facility], [address] [place] [address], [id number] , [place] tel: [phone] [facility] Panic disorder [episodic paroxysmal anxiety]Major depressive disorder, recurrent severe without psychotic features 4 Antelmo LALAGildaRadha SandersBella. [address] [place], [address], [place]. tel: [phone] PSYTX PT&/FAMILY 60 MINUTES [facility], [address], [place], [id number] , [place] tel: [phone] [facility] Panic disorder [episodic paroxysmal anxiety]Major depressive disorder, recurrent severe without psychotic features 4 Antelmo LALAGildaRadha SandersBella. [address] [place], [address], [place]. tel: [phone] PSYTX PT&/FAMILY 60 MINUTES [facility], [address] [place] [address], [id number] , [place] tel: [phone] [facility] Panic disorder [episodic paroxysmal anxiety]Major depressive disorder, recurrent severe without psychotic features 4 Antelmo LALAGildaRadha Bella. [address] [place], [address], [place]. tel: [phone] PSYTX PT&/FAMILY 60 MINUTES [facility], [address] [place] [address], [id number] , [place] tel: [phone] [facility] Panic disorder [episodic paroxysmal anxiety]Major depressive disorder, recurrent severe without psychotic features 4 Antelmo Sandersnifer. [address] [place], [address], [place]. tel: [phone] PSYTX PT&/FAMILY 60 MINUTES [facility], [address] [place] [address], [id number] , [place] tel: [phone] [facility] Panic disorder [episodic paroxysmal anxiety]Major depressive disorder, recurrent severe without psychotic features 4 Antelmo LALAGildaRadha SandersBella. [address] [place], [address], [place]. tel: [phone] PSYCH DIAGNOSTIC EVALUATION [facility], [address] [place] [address], [id number] , [place] tel: [phone] [facility] Panic disorder [episodic paroxysmal anxiety]Major depressive disorder, recurrent severe without psychotic features 4 Antelmo Blanco. [address] [place], [address], [place]. tel: [phone] [facility], [address], [place], [id number] , [place] tel: [phone] [facility] Detox No Information 4 Tom Garza. [address] [place], [address], [place]. tel: [phone] [facility], [address], [place], [id number] , [place] tel: [phone] [facility] No Information 4 Klidas Brooke. [address] [place] [address], [id number] , [place]. tel: [phone] [facility], [address] [place] [address], [id number] , [place] tel: [phone] [facility] Panic disorder [episodic paroxysmal anxiety]Major depressive disorder, recurrent severe without psychotic features 4 Antelmo Blanco. [address] [place], [address], [place]. tel: [phone] [facility], [address], [place], [id number] , [place] tel: [phone] [facility] No Information 4 Klidas Brooke. [address], [place], [id number] , [place]. tel: [phone] [facility], [address], [place], [id number] , [place] tel: [phone] [facility] No Information 4 Klidas Brooke. [address] [place] [address], [id number] , [place]. tel: [phone] [facility], [address] [place] [address], [id number] , [place] tel: [phone] [facility] No Information 4 Klidas Brooke. [address], [place], [id number] , [place]. tel: [phone] [facility], [address], [place], [id number] , [place] tel: [phone] [facility] No Information 4 Klidas Brooke. [address], [place], [id number] , [place]. tel: [phone] [facility], [address], [place], [id number] , [place] tel: [phone] [facility] No Information 4 Tom Garza. [address] [place], [address], [place]. tel: [phone] [facility], [address] [place] [address], [id number] , [place] tel: [phone] Dental Clinic ER (chief complaint) Body mass index [BMI] 45.0-49.9, [facility] for screening for dental disorders 4 Kansandy Dahl. [address], [place], [id number] , [place]. tel: [phone] [facility], [address] [place] [address], [id number] , [place] tel: [phone] [facility] No Information 4 Klidas Brooke. [address], [place], [id number] , [place]. tel: [phone] [facility], [address], [place], [id number] , [place] tel: [phone] [facility] No Information 0 4 Klidas Brooke. [address] [place] [address], [id number] , [place]. tel: [phone] [facility], [address] [place] [address], [id number] , [place] tel: [phone] [facility] No Information Fe 4 Tom Garza. [address] [place], [address], [place]. tel: [phone] [facility], [address] [place] [address], [id number] , [place] tel: [phone] [facility] No Information 4 Lida Cox. [address] [place] [address], [id number] , [place]. tel: [phone] [facility], [address], [place], [id number] , [place] tel: [phone] [facility] No Information 4 Lida Cox. [address] [place] [address], [id number] , [place]. tel: [phone] Family History Family Member Type Diagnosis Age At Onset No Information Payers Payer name Insurance type Covered republican ID Authoriza tion(s) No Information Social History Type Description Quantity Date Captured Comments Alcohol Use Details Unknown Caffeine Use Details Unknown Tobacco Use Status No Information Smoking Status No Information Sex Female Sexual Orientation Straight or heterosexual Gender Identity Female Chief Complaint And Reason For Visit No Information Reason For Referral Reason For Referral No Information Plan Of Treatment Date Type Action Status Goal Unhealthy drug use screening . Due on due Goal FOBT. Due on due Goal Colonoscopy. Due on due Goal Hepatitis C screening. Due o n due Goal Lipid panel. Due on due Goal Depression screening. Due on due Goal FIT-DNA. Due on due Goal Tdap Vaccine. Due on 2024 due Goal Tdap. Due on due Goal Hep A. Due on du e Goal PRAPARE ASSESSMENT. Due on due Goal Influenza vaccine. Due on due Goal Mammogram. Due on due Goal Zoster vaccine (). Due on due Goal HPV. Due on due Goal FIT. Due on due Goal CT-Colonography. Due on due Goal Tdap. Due on due Goal HPV. Due on due Goal CT-Colonography. Due on due Goal Influenza vaccine. Due on due Goal Lipid panel. Due on due Goal PRAPARE ASSESSMENT. Due on due Goal Depression screening. Due on due Goal Mammogram. Due on due Goal Zoster vaccine (). Due on due Goal FIT. Due on due Goal FOBT. Due on due Goal Colonoscopy. Due on due Goal Hepatitis C screening. Due o n due Goal FIT-DNA. Due on due Goal Hep A. Due on du e Goal Tdap Vaccine. Due on 2024 due Goal Unhealthy drug use screening . Due on due Goal Hepatitis C screening. Due o n due Goal FIT. Due on due Goal Zoster vaccine (). Due on due Goal FIT-DNA. Due on due Goal Mammogram. Due on due Goal Colonoscopy. Due on due Goal Unhealthy drug use screening . Due on due Goal Influenza vaccine. Due on due Goal HPV. Due on due Goal PRAPARE ASSESSMENT. Due on A due Goal Depression screening. Due on due Goal Tdap. Due on due Goal FOBT. Due on due Goal Lipid panel. Due on due Goal CT-Colonography. Due on due Goal Tdap Vaccine. Due on 2024 due Goal Tdap Vaccine. Due on 2024 due Goal FOBT. Due on due Goal Mammogram. Due on due Goal HPV. Due on due Goal Zoster vaccine (1st). Due on due Goal Unhealthy drug use screening . Due on due Goal Influenza vaccine. Due on due Goal FIT-DNA. Due on due Goal Depression screening. Due on due Goal Lipid panel. Due on due Goal Colonoscopy. Due on due Goal Tdap. Due on due Goal PRAPARE ASSESSMENT. Due on A due Goal CT-Colonography. Due on due Goal FIT. Due on due Goal Hepatitis C screening. Due o n due Goal Hep A. Due on e Goal Depression screening. Due on due Goal FIT. Due on due Goal Hep A. Due on e Goal CT-Colonography. Due on due Goal Influenza vaccine. Due on Ap due Goal Unhealthy drug use screening . Due on due Goal Tdap Vaccine. Due on 2024 due Goal Colonoscopy. Due on due Goal Mammogram. Due on due Goal FOBT. Due on due Goal PRAPARE ASSESSMENT. Due on A due Goal Tdap. Due on due Goal Zoster vaccine (1st). Due on due Goal Lipid panel. Due on due Goal Hepatitis C screening. Due o n due Goal HPV. Due on due Goal FIT-DNA. Due on due Goal Hep A. Due on du e Goal Mammogram. Due on due Goal CT-Colonography. Due on due Goal Colonoscopy. Due on due Goal PRAPARE ASSESSMENT. Due on A due Goal Tdap Vaccine. Due on 2024 due Goal HPV. Due on due Goal Zoster vaccine (). Due on due Goal FOBT. Due on due Goal Hepatitis C screening. Due o n due Goal Influenza vaccine. Due on due Goal Unhealthy drug use screening . Due on due Goal FIT. Due on due Goal Depression screening. Due on due Goal FIT-DNA. Due on due Goal Tdap. Due on due Goal Lipid panel. Due on due Goal FIT-DNA. Due on due Goal HPV. Due on due Goal FIT. Due on due Goal Tdap Vaccine. Due on 2024 due Goal Colonoscopy. Due on due Goal FOBT. Due on due Goal Tdap. Due on due Goal Hepatitis C screening. Due o n due Goal Influenza vaccine. Due on due Goal Lipid panel. Due on due Goal Mammogram. Due on due Goal Depression screening. Due on due Goal PRAPARE ASSESSMENT. Due on due Goal Zoster vaccine (). Due on due Goal Unhealthy drug use screening . Due on due Goal CT-Colonography. Due on due Goal Tdap Vaccine. Due on 2024 due Goal Lipid panel. Due on due Goal Zoster vaccine (). Due on due Goal Mammogram. Due on due Goal Tdap. Due on due Goal FIT-DNA. Due on due Goal Depression screening. Due on due Goal Colonoscopy. Due on due Goal Influenza vaccine. Due on due Goal HPV. Due on due Goal CT-Colonography. Due on due Goal Hepatitis C screening. Due o n due Goal PRAPARE ASSESSMENT. Due on due Goal FOBT. Due on due Goal Unhealthy drug use screening . Due on due Goal FIT. Due on due Goal FOBT. Due on due Goal CT-Colonography. Due on due Goal Tdap Vaccine. Due on 2023 due Goal Zoster vaccine (). Due on due Goal FIT. Due on due Goal PRAPARE ASSESSMENT. Due on due Goal Mammogram. Due on due Goal HPV. Due on due Goal Unhealthy drug use screening . Due on due Goal Depression screening. Due on due Goal FIT-DNA. Due on due Goal Colonoscopy. Due on due Goal Tdap. Due on due Goal Influenza vaccine. Due on due Goal Lipid panel. Due on due Goal Hepatitis C screening. Due o n due Goal Depression screening. Due on due Goal Mammogram. Due on due Goal Colonoscopy. Due on due Goal CT-Colonography. Due on due Goal Zoster vaccine (1st). Due on due Goal FIT. Due on due Goal Hepatitis C screening. Due o n due Goal Unhealthy drug use screening . Due on due Goal FIT-DNA. Due on due Goal Tdap Vaccine. Due on 2023 due Goal Influenza vaccine. Due on due Goal Lipid panel. Due on due Goal FOBT. Due on due Goal PRAPARE ASSESSMENT. Due on D due Goal Tdap. Due on due Goal HPV. Due on due Goal FIT-DNA. Due on due Goal Mammogram. Due on due Goal FOBT. Due on due Goal Hepatitis C screening. Due o n due Goal FIT. Due on due Goal Influenza vaccine. Due on No due Goal HPV. Due on due Goal Zoster vaccine (1st). Due on due Goal Tdap Vaccine. Due on 2023 due Goal Colonoscopy. Due on due Goal Depression screening. Due on due Goal Lipid panel. Due on due Goal CT-Colonography. Due on due Goal Unhealthy drug use screening . Due on due Goal PRAPARE ASSESSMENT. Due on N due Goal Tdap. Due on due Goal FIT-DNA. Due on due Goal CT-Colonography. Due on due Goal Influenza vaccine. Due on No due Goal Mammogram. Due on due Goal Lipid panel. Due on due Goal Unhealthy drug use screening . Due on due Goal Hepatitis C screening. Due o n due Goal PRAPARE ASSESSMENT. Due on N due Goal Colonoscopy. Due on due Goal HPV. Due on due Goal FOBT. Due on due Goal Tdap Vaccine. Due on 2023 due Goal Zoster vaccine (). Due on due Goal Tdap. Due on due Goal FIT. Due on due Goal Depression screening. Due on due Goal Lipid panel. Due on due Goal FOBT. Due on due Goal FIT-DNA. Due on due Goal Colonoscopy. Due on due Goal HPV. Due on due Goal Tdap. Due on due Goal CT-Colonography. Due on due Goal Influenza vaccine. Due on No due Goal Mammogram. Due on due Goal PRAPARE ASSESSMENT. Due on N due Goal Zoster vaccine (). Due on due Goal Depression screening. Due on due Goal Tdap Vaccine. Due on 2023 due Goal Unhealthy drug use screening . Due on due Goal FIT. Due on due Goal Hepatitis C screening. Due o n due Goal CT-Colonography. Due on due Goal FOBT. Due on due Goal Zoster vaccine (1st). Due on due Goal Tdap. Due on due Goal FIT. Due on due Goal Colonoscopy. Due on due Goal FIT-DNA. Due on due Goal Depression screening. Due on due Goal Influenza vaccine. Due on No due Goal PRAPARE ASSESSMENT. Due on N due Goal Tdap Vaccine. Due on 2023 due Goal HPV. Due on due Goal Unhealthy drug use screening . Due on due Goal Hepatitis C screening. Due o n due Goal Mammogram. Due on due Goal Lipid panel. Due on due Goal Lipid panel. Due on due Goal PRAPARE ASSESSMENT. Due on O ct due Goal Depression screening. Due on due Goal HPV. Due on due Goal Tdap Vaccine. Due on 2023 due Goal FOBT. Due on due Goal Influenza vaccine. Due on Oc due Goal CT-Colonography. Due on due Goal Zoster vaccine (). Due on due Goal FIT-DNA. Due on due Goal Hepatitis C screening. Due o n due Goal Unhealthy drug use screening . Due on due Goal Mammogram. Due on due Goal Tdap. Due on due Goal FIT. Due on due Goal Colonoscopy. Due on due Goal Tdap. Due on due Goal FOBT. Due on due Goal Zoster vaccine (). Due on due Goal Hep A. Due on du e Goal Depression screening. Due on due Goal Hepatitis C screening. Due o n due Goal HPV. Due on due Goal Lipid panel. Due on due Goal FIT. Due on due Goal PRAPARE ASSESSMENT. Due on O ct due Goal CT-Colonography. Due on due Goal Influenza vaccine. Due on Oc due Goal Mammogram. Due on due Goal Tdap Vaccine. Due on 2023 due Goal Colonoscopy. Due on due Goal Unhealthy drug use screening . Due on due Goal FIT-DNA. Due on due Goal Tdap. Due on due Goal Influenza vaccine. Due on Oc due Goal Mammogram. Due on due Goal FIT-DNA. Due on due Goal Depression screening. Due on due Goal Hepatitis C screening. Due o n due Goal Tdap Vaccine. Due on 2023 due Goal Unhealthy drug use screening . Due on due Goal FOBT. Due on due Goal Zoster vaccine (1st). Due on due Goal CT-Colonography. Due on due Goal Lipid panel. Due on due Goal FIT. Due on due Goal Colonoscopy. Due on due Goal PRAPARE ASSESSMENT. Due on O due Goal HPV. Due on due Goal FIT-DNA. Due on due Goal FOBT. Due on due Goal Tdap. Due on due Goal Colonoscopy. Due on due Goal Unhealthy drug use screening . Due on due Goal Hepatitis C screening. Due o n due Goal Tdap Vaccine. Due on 2023 due Goal FIT. Due on due Goal Lipid panel. Due on due Goal Mammogram. Due on due Goal Influenza vaccine. Due on Oc due Goal CT-Colonography. Due on due Goal Depression screening. Due on due Goal HPV. Due on due Goal PRAPARE ASSESSMENT. Due on O due Goal Zoster vaccine (). Due on due Goal Hep A. Due on du e Goal FIT. Due on due Goal Zoster vaccine (). Due on due Goal Lipid panel. Due on due Goal Mammogram. Due on due Goal FIT-DNA. Due on due Goal Tdap Vaccine. Due on 2023 due Goal Influenza vaccine. Due on due Goal Depression screening. Due on due Goal Hepatitis C screening. Due o n due Goal Tdap. Due on due Goal Hep A. Due on du e Goal HPV. Due on due Goal FOBT. Due on due Goal Unhealthy drug use screening . Due on due Goal Colonoscopy. Due on due Goal PRAPARE ASSESSMENT. Due on O due Goal CT-Colonography. Due on due Goal Zoster vaccine (1st). Due on due Goal Colonoscopy. Due on due Goal CT-Colonography. Due on due Goal Hep A. Due on du e Goal Lipid panel. Due on due Goal Tdap Vaccine. Due on 2023 due Goal Influenza vaccine. Due on Oc t due Goal Tdap. Due on due Goal PRAPARE ASSESSMENT. Due on O ct due Goal Unhealthy drug use screening . Due on due Goal Hepatitis C screening. Due o n due Goal FIT. Due on due Goal HPV. Due on due Goal Mammogram. Due on due Goal Depression screening. Due on due Goal FOBT. Due on due Goal FIT-DNA. Due on due Goal FIT-DNA. Due on due Goal FIT. Due on due Goal Tdap. Due on due Goal Unhealthy drug use screening . Due on due Goal Tdap Vaccine. Due on 2023 due Goal FOBT. Due on due Goal Colonoscopy. Due on due Goal HPV. Due on due Goal Hep A. Due on du e Goal Lipid panel. Due on due Goal Mammogram. Due on due Goal Hepatitis C screening. Due o n due Goal Influenza vaccine. Due on Oc due Goal Zoster vaccine (). Due on due Goal Depression screening. Due on due Goal CT-Colonography. Due on due Goal PRAPARE ASSESSMENT. Due on O due Goal Lipid panel. Due on due Goal Unhealthy drug use screening . Due on due Goal Colonoscopy. Due on due Goal Mammogram. Due on due Goal Zoster vaccine (). Due on due Goal FIT-DNA. Due on due Goal PRAPARE ASSESSMENT. Due on O due Goal Hep A. Due on du e Goal FIT. Due on due Goal Tdap Vaccine. Due on 2023 due Goal Depression screening. Due on due Goal HPV. Due on due Goal Tdap. Due on due Goal Hepatitis C screening. Due o n due Goal Influenza vaccine. Due on Oc due Goal FOBT. Due on due Goal CT-Colonography. Due on due Goal PRAPARE ASSESSMENT. Due on O due Goal FIT-DNA. Due on due Goal Tdap Vaccine. Due on 2023 due Goal Influenza vaccine. Due on Oc due Goal Tdap. Due on due Goal Colonoscopy. Due on due Goal FOBT. Due on due Goal CT-Colonography. Due on due Goal Unhealthy drug use screening . Due on due Goal Depression screening. Due on due Goal FIT. Due on due Goal Hep A. Due on du e Goal HPV. Due on due Goal Zoster vaccine (1st). Due on due Goal Mammogram. Due on due Goal Lipid panel. Due on due Goal Hepatitis C screening. Due o n due Goal Hepatitis C screening. Due o n due Goal Tdap. Due on due Goal Lipid panel. Due on due Goal FIT-DNA. Due on due Goal Depression screening. Due on due Goal Colonoscopy. Due on due Goal Hep A. Due on du e Goal FOBT. Due on due Goal Tdap Vaccine. Due on 2023 due Goal PRAPARE ASSESSMENT. Due on O due Goal HPV. Due on due Goal CT-Colonography. Due on due Goal Mammogram. Due on due Goal Zoster vaccine (1st). Due on due Goal Influenza vaccine. Due on Oc due Goal Unhealthy drug use screening . Due on due Goal FIT. Due on due Goal Hep A. Due on du e Goal Depression screening. Due on due Goal Tdap Vaccine. Due on 2023 due Goal FIT. Due on due Goal HPV. Due on due Goal Colonoscopy. Due on due Goal FOBT. Due on due Goal Influenza vaccine. Due on Se due Goal Zoster vaccine (). Due on due Goal CT-Colonography. Due on due Goal Lipid panel. Due on due Goal Mammogram. Due on due Goal FIT-DNA. Due on due Goal PRAPARE ASSESSMENT. Due on S due Goal Unhealthy drug use screening . Due on due Goal Hepatitis C screening. Due o n due Goal Tdap. Due on due Goal FOBT. Due on due Goal FIT-DNA. Due on due Goal PRAPARE ASSESSMENT. Due on S due Goal Depression screening. Due on due Goal Tdap Vaccine. Due on 2023 due Goal Zoster vaccine (). Due on due Goal HPV. Due on due Goal Unhealthy drug use screening . Due on due Goal FIT. Due on due Goal Mammogram. Due on due Goal Hepatitis C screening. Due o n due Goal Lipid panel. Due on due Goal Tdap. Due on due Goal CT-Colonography. Due on due Goal Influenza vaccine. Due on due Goal Colonoscopy. Due on due Goal FIT. Due on due Goal FIT-DNA. Due on due Goal CT-Colonography. Due on due Goal FOBT. Due on due Goal Colonoscopy. Due on due Goal HPV. Due on due Goal Tdap Vaccine. Due on 2023 due Goal Tdap. Due on due Goal Lipid panel. Due on due Goal Zoster vaccine (1st). Due on due Goal PRAPARE ASSESSMENT. Due on S due Goal Hepatitis C screening. Due o n due Goal Unhealthy drug use screening . Due on due Goal Depression screening. Due on due Goal Mammogram. Due on due Goal Influenza vaccine. Due on due Goal CT-Colonography. Due on due Goal Tdap. Due on due Goal Depression screening. Due on due Goal Colonoscopy. Due on due Goal PRAPARE ASSESSMENT. Due on due Goal Lipid panel. Due on due Goal Zoster vaccine (). Due on due Goal FIT-DNA. Due on due Goal Unhealthy drug use screening . Due on due Goal Influenza vaccine. Due on due Goal Tdap Vaccine. Due on 2023 due Goal FOBT. Due on due Goal Hepatitis C screening. Due o n due Goal HPV. Due on due Goal Mammogram. Due on due Goal FIT. Due on due Goal Tdap Vaccine. Due on 2023 due Goal Zoster vaccine (1st). Due on due Goal FIT-DNA. Due on due Goal Depression screening. Due on due Goal HPV. Due on due Goal Tdap. Due on due Goal CT-Colonography. Due on due Goal Colonoscopy. Due on due Goal FIT. Due on due Goal Unhealthy drug use screening . Due on due Goal PRAPARE ASSESSMENT. Due on due Goal Lipid panel. Due on due Goal Mammogram. Due on due Goal Influenza vaccine. Due on due Goal Hep A. Due on du e Goal Hepatitis C screening. Due o n due Goal FOBT. Due on due Goal FIT. Due on due Goal Tdap. Due on due Goal Depression screening. Due on due Goal Colonoscopy. Due on due Goal FOBT. Due on due Goal Zoster vaccine (1st). Due on due Goal Lipid panel. Due on due Goal Influenza vaccine. Due on due Goal Mammogram. Due on due Goal HPV. Due on due Goal CT-Colonography. Due on due Goal Tdap Vaccine. Due on 2023 due Goal FIT-DNA. Due on due Goal Hepatitis C screening. Due o n due Goal Hep A. Due on du e Goal Unhealthy drug use screening . Due on due Goal PRAPARE ASSESSMENT. Due on due Goal Zoster vaccine (). Due on due Goal Unhealthy drug use screening . Due on due Goal HPV. Due on due Goal Mammogram. Due on due Goal FIT-DNA. Due on due Goal Lipid panel. Due on due Goal FOBT. Due on due Goal PRAPARE ASSESSMENT. Due on due Goal Tdap Vaccine. Due on 2023 due Goal Hep A. Due on du e Goal Tdap. Due on due Goal FIT. Due on due Goal Depression screening. Due on due Goal Colonoscopy. Due on due Goal CT-Colonography. Due on due Goal Hepatitis C screening. Due o n due Goal Influenza vaccine. Due on Se due Goal Tdap. Due on due Goal Influenza vaccine. Due on due Goal Tdap Vaccine. Due on 2023 due Goal Hepatitis C screening. Due o n due Goal Mammogram. Due on due Goal FIT-DNA. Due on due Goal FOBT. Due on due Goal Colonoscopy. Due on due Goal CT-Colonography. Due on due Goal PRAPARE ASSESSMENT. Due on A due Goal Zoster vaccine (). Due on due Goal Unhealthy drug use screening . Due on due Goal HPV. Due on due Goal Depression screening. Due on due Goal FIT. Due on due Goal Lipid panel. Due on due Goal Tdap. Due on due Goal Mammogram. Due on due Goal FOBT. Due on due Goal CT-Colonography. Due on due Goal FIT. Due on due Goal Influenza vaccine. Due on due Goal Tdap Vaccine. Due on 2023 due Goal Colonoscopy. Due on due Goal FIT-DNA. Due on due Goal PRAPARE ASSESSMENT. Due on A due Goal Zoster vaccine (). Due on due Goal Unhealthy drug use screening . Due on due Goal Hepatitis C screening. Due o n due Goal Depression screening. Due on due Goal HPV. Due on due Goal Lipid panel. Due on due Goal PRAPARE ASSESSMENT. Due on A due Goal Influenza vaccine. Due on due Goal Unhealthy drug use screening . Due on due Goal Mammogram. Due on due Goal Zoster vaccine (). Due on due Goal Depression screening. Due on due Goal Lipid panel. Due on due Goal Colonoscopy. Due on due Goal CT-Colonography. Due on due Goal Tdap Vaccine. Due on 2023 due Goal Tdap. Due on due Goal FIT-DNA. Due on due Goal FOBT. Due on due Goal Hepatitis C screening. Due o n due Goal FIT. Due on due Goal HPV. Due on due Goal Hep A. Due on du e Goal Colonoscopy. Due on due Goal Tdap. Due on due Goal FOBT. Due on due Goal Tdap Vaccine. Due on 2023 due Goal Depression screening. Due on due Goal Mammogram. Due on due Goal Unhealthy drug use screening . Due on due Goal Lipid panel. Due on due Goal Hepatitis C screening. Due o n due Goal FIT-DNA. Due on due Goal PRAPARE ASSESSMENT. Due on A due Goal Zoster vaccine (). Due on due Goal CT-Colonography. Due on due Goal HPV. Due on due Goal Influenza vaccine. Due on due Goal FIT. Due on due Goal Mammogram. Due on due Goal Colonoscopy. Due on due Goal Hepatitis C screening. Due o n due Goal Zoster vaccine (). Due on due Goal Tdap Vaccine. Due on 2023 due Goal Influenza vaccine. Due on due Goal Unhealthy drug use screening . Due on due Goal Lipid panel. Due on due Goal FIT. Due on due Goal HPV. Due on due Goal Tdap. Due on due Goal Depression screening. Due on due Goal FOBT. Due on due Goal FIT-DNA. Due on due Goal CT-Colonography. Due on due Goal PRAPARE ASSESSMENT. Due on A due Goal Depression screening. Due on due Goal HPV. Due on due Goal Hepatitis C screening. Due o n due Goal Colonoscopy. Due on due Goal FIT-DNA. Due on due Goal Tdap. Due on due Goal FOBT. Due on due Goal Unhealthy drug use screening . Due on due Goal Zoster vaccine (). Due on due Goal CT-Colonography. Due on due Goal Influenza vaccine. Due on due Goal PRAPARE ASSESSMENT. Due on A due Goal Lipid panel. Due on due Goal Mammogram. Due on due Goal Hep A. Due on du e Goal FIT. Due on due Goal Tdap Vaccine. Due on 2023 due Goal FOBT. Due on due Goal CT-Colonography. Due on due Goal Mammogram. Due on due Goal Colonoscopy. Due on due Goal Influenza vaccine. Due on due Goal Unhealthy drug use screening . Due on due Goal Lipid panel. Due on due Goal Tdap. Due on due Goal HPV. Due on due Goal FIT. Due on due Goal Hepatitis C screening. Due o n due Goal Zoster vaccine (). Due on due Goal Tdap Vaccine. Due on 2023 due Goal Hep A. Due on du e Goal FIT-DNA. Due on due Goal PRAPARE ASSESSMENT. Due on due Goal Depression screening. Due on due Goal Influenza vaccine. Due on due Goal Unhealthy drug use screening . Due on due Goal Hep A. Due on du e Goal Tdap. Due on due Goal FOBT. Due on due Goal Hepatitis C screening. Due o n due Goal Tdap Vaccine. Due on [address]-Colonography. Due on due Goal FIT. Due on due Goal PRAPARE ASSESSMENT. Due on due Goal Depression screening. Due on due Goal Colonoscopy. Due on due Goal Mammogram. Due on due Goal HPV. Due on due Goal FIT-DNA. Due on due Goal Lipid panel. Due on due Goal Zoster vaccine (). Due on due Goal Lipid panel. Due on due Goal Influenza vaccine. Due on due Goal PRAPARE ASSESSMENT. Due on due Goal HPV. Due on due Goal FIT-DNA. Due on due Goal Unhealthy drug use screening . Due on due Goal Mammogram. Due on due Goal Hepatitis C screening. Due o n due Goal Zoster vaccine (). Due on due Goal CT-Colonography. Due on due Goal Colonoscopy. Due on due Goal FIT. Due on due Goal FOBT. Due on due Goal Tdap Vaccine. Due on 2023 due Goal Tdap. Due on due Goal Depression screening. Due on due Goal Influenza vaccine. Due on due Goal Depression screening. Due on due Goal Tdap Vaccine. Due on 2023 due Goal PRAPARE ASSESSMENT. Due on due Goal HPV. Due on due Goal Mammogram. Due on due Goal Lipid panel. Due on due Goal Zoster vaccine (1st). Due on due Goal FIT-DNA. Due on due Goal Unhealthy drug use screening . Due on due Goal Hepatitis C screening. Due o n due Goal Tdap. Due on due Goal FIT. Due on due Goal CT-Colonography. Due on due Goal FOBT. Due on due Goal Colonoscopy. Due on due Goal FOBT. Due on due Goal Tdap Vaccine. Due on 2023 due Goal Zoster vaccine (1st). Due on due Goal Influenza vaccine. Due on due Goal Tdap. Due on due Goal Lipid panel. Due on due Goal FIT. Due on due Goal Colonoscopy. Due on due Goal CT-Colonography. Due on due Goal FIT-DNA. Due on due Goal PRAPARE ASSESSMENT. Due on due Goal Unhealthy drug use screening . Due on due Goal HPV. Due on due Goal Mammogram. Due on due Goal Depression screening. Due on due Goal Hepatitis C screening. Due o n due Goal FIT-DNA. Due on due Goal Influenza vaccine. Due on due Goal Mammogram. Due on due Goal Tdap Vaccine. Due on 2023 due Goal Hep A. Due on du e Goal Zoster vaccine (). Due on due Goal FOBT. Due on due Goal Depression screening. Due on due Goal PRAPARE ASSESSMENT. Due on due Goal Unhealthy drug use screening . Due on due Goal Hepatitis C screening. Due o n due Goal CT-Colonography. Due on due Goal Lipid panel. Due on due Goal Tdap. Due on due Goal Colonoscopy. Due on due Goal FIT. Due on due Goal HPV. Due on due Goal HPV. Due on due Goal FIT. Due on due Goal Zoster vaccine (1st). Due on due Goal Colonoscopy. Due on due Goal FIT-DNA. Due on due Goal CT-Colonography. Due on due Goal PRAPARE ASSESSMENT. Due on due Goal Lipid panel. Due on due Goal Depression screening. Due on due Goal Influenza vaccine. Due on due Goal Tdap Vaccine. Due on 2023 due Goal Hepatitis C screening. Due o n due Goal FOBT. Due on due Goal Hep A. Due on du e Goal Tdap. Due on due Goal Mammogram. Due on due Goal Unhealthy drug use screening . Due on due Goal Hep A. Due on du e Goal HPV. Due on due Goal Lipid panel. Due on due Goal Unhealthy drug use screening . Due on due Goal PRAPARE ASSESSMENT. Due on M due Goal Depression screening. Due on due Goal Influenza vaccine. Due on Ma due Goal Tdap Vaccine. Due on 2023 due Goal Hepatitis C screening. Due o n due Goal Tdap. Due on due Goal Dietary management education , guidance, and counseling completed History Of Present Illness Encounter Date Complaint History Of Prese nt Illness er ER ER Functional Status Date Functional Assessmen t No Information Instructions Date Instruction Additional Infor mation Giving encouragement to exercise Related to Body mass index [BMI] 45.0-49.9, adult Dietary management e ducation, guidance, and counseling Related to Body mass index [BMI] 45.0-49.9, adult Assessments Type Assessment Date assessment Sedative, hypnotic or anxiolytic dependence, uncomplicated assessment Post-traumatic stress disorder, chronic assessment Major depressive dis order, 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
--- OUTSIDE RECORDS SUMMARY | 2024-08-03 04:13 | XMS_ITS ---
Demographics Address [address] [place] [address] [place] [address] Mobile Email Address Preferred Language en Marital Status unmarried Bahai Affiliation Unknown Race White Ethnic Group Not or Lati no Author Organization [facility] Address [address] [place] [address] Care Team Providers Care Death Surveys Coder Name Role Phone DAVEY CABEZAS MD Primary Care Provider Davey Cabezas Unavailable [phone] REASON FOR VISIT Chlordiazepoxide refill Medications Medication SIG (Take, Route, Frequency, Duration) Notes Start Date End Date Status chlordiazePOXIDE HCl 10 MG 1 capsule Orally tid PRN for 7 days needs to last a week 08/03/2024 Active Encounters Encounter Location Date Provider Diagnosis [address] [place] [address] 08/03/2024 Davey Raulito Palpitations R00.2 Assessments Encounter Date Diagnosis (ICD Code) Assessment Notes Treatment Notes Treatment Clinical Notes Section Notes 08/03/2024 Palpitations (ICD-10 - R00.2) Plan Of Treatment Medication Medication Name Sig Start Date Stop Date Notes chlordiazePOXIDE HCl 10 MG 1 capsule Ora lly tid PRN for 7 days 08/03/2024 Progress Notes * Esme REYES SDOB: [birth year] (49 yo F)Acc No.[id number]:08/03/2024 Patient: Mayur JOHNSONtavares Garcia :1975 A ge:49 Y S ex:Female Address:[address] [place], [address] * Refills Refill chlordiazePOXIDE HCl Capsule, 10 MG, Orally, 18, 1 capsule, tid PRN, 7 days, Refills=0 * true * Date: Generated for Any soares/Karen/Duc on: 0 08/17/2024 01:14 PM EDT
--- OUTSIDE RECORDS SUMMARY | 2024-08-09 05:30 | XMS_ITS ---
Demographics Address [address] [place] [address] Mobile Email Address Preferred Language en Marital Status unmarried Shinto Affiliation Unknown Race White Ethnic Group Not or Lati no Author Organization [facility] [place] Address [address] [place] [address] Care Team Providers Care Derrick Boat Captain Name Role Phone DAVEY CABEZAS MD Primary Care Provider Davey Cabezas Unavailable [phone] REASON FOR VISIT venofer not covered Encounters Encounter Location Date Provider Diagnosis [facility] [address] [place] [address] 08/09/2024 Davey Cabezas Plan Of Treatment No Information Progress Notes * Esem REYES SDOB: [birth year] (49 yo F)Acc No.[id number]:08/09/2024 Patient: Bekah DYE Esme Radha :1975 A ge:49 Y S ex:Female Address:[address] [place], [address] * true * Date: Generated for Printi ng/Faxing/eTransmitting on: 0 08/17/2024 01:13 PM EDT
--- OUTSIDE RECORDS SUMMARY | 2024-08-15 06:12 | XMS_ITS ---
Demographics Address [address] [place] [address] Mobile Email Address Preferred Language en Marital Status unmarried Congregational Affiliation Unknown Race White Ethnic Group Not or Lati no Author Organization [facility] [place] Address [address] [place] [address] Care Team Providers Care Group Managing Director Name Role Phone DAVEY CABEZAS MD Primary Care Provider Davey Cabezas Unavailable [phone] REASON FOR VISIT refill Medications Medication SIG (Take, Route, Frequency, Duration) Notes Start Date End Date Status chlordiazePOXIDE HCl 10 MG 1 capsule Orally tid PRN for 7 days needs to last a week 08/15/2024 Active Encounters Encounter Location Date Provider Diagnosis [address] [address] 08/15/2024 Davey Raulito Palpitations R00.2 Assessments Encounter Date Diagnosis (ICD Code) Assessment Notes Treatment Notes Treatment Clinical Notes Section Notes 08/15/2024 Palpitations (ICD-10 - R00.2) Plan Of Treatment Medication Medication Name Sig Start Date Stop Date Notes chlordiazePOXIDE HCl 10 MG 1 capsule Ora lly tid PRN for 7 days 08/15/2024 Progress Notes * Esme REYES SDOB: [birth year] (49 yo F)Acc No.[id number]:08/15/2024 Patient: Mayur JOHNSONtavares Garcia :1975 A ge:49 Y S ex:Female Address[address] [place], [address] * Refills Refill chlordiazePOXIDE HCl Capsule, 10 MG, Orally, 18, 1 capsule, tid PRN, 7 days, Refills=0 * true * Date: Generated for Any soares/Karen/Duc on: 0 08/17/2024 01:17 PM EDT
--- OUTSIDE RECORDS SUMMARY | 2024-08-17 13:13 | XMS_ITS | Encounter Summary ---
Author Organization [facility] Address [address] [place] [address] Care Team Providers Care Watch Commander Name Role Phone Farhat Cabezas MD Primary Care Provider [phone] Farhat Cabezas MD Unavailable [phone] Farhat Cabezas MD Unavailable [phone] Source Comments In the event this information is protected by the Federal Confidentiality of Alcohol and Drug AbusePatient Records regulations: The Federal rules restrict any use of the information to criminally investigate or prosecute any alcohol or drug abuse patient.[facility] Encounter Details Date Type Department Care Team (Late st Contact Info) Description 08/31/2016 Patient Msg Medical Records [address] [place] [address] Provider, [facility] Social History Tobacco Use [...] Contact Info) Description 08/30/2024 9:30 AM EDT [facility] Endocrinology [address] [place] [address] Greg Nina APRN.TRACK LAYING MACHINE OPERATOR [address] [place] [address] diabetes follow up with me in 3 months virtually 11/20/2024 1:00 PM EDT [facility] Endocrinology [address] [place] [address] Valdez Suarez MD [address] [place] [address] [place], [place] 3416735 follow up in 6 months documented as of this encounter Visit Diagnoses Not on filedocumented in this encounter Care Teams Watch Commander Relationship Specialty Start Date End Date Farhat Cabezas MD PCP - General Family Medicine 01/13/11 Farhat Cabezas MD Referring Family Medicine 01/08/22 Farhat Cabezas MD [address] [place] [address] Referring Family Medicine 07/26/24 documented as of this encounter
--- OUTSIDE RECORDS SUMMARY | 2024-08-17 13:13 | XMS_ITS | Encounter Summary ---
Demographics Address [address] [place] [address] Home Phone Mobile Phone Email Address Preferred Language ENG Marital Status Single Pentecostal Affiliation Unknown Race White Ethnic Group Not or Lati no Author Organization [facility] Address [address] [place] [address] Care Team Providers Care Plate Corrector Name Role Phone Farhat Cabezas MD Primary Care Provider [phone] Farhat Cabezas MD Unavailable [phone] Farhat Cabezas MD Unavailable [phone] Source Comments In the event this information is protected by the Federal Confidentiality of Alcohol and Drug AbusePatient Records regulations: The Federal rules restrict any use of the information to criminally investigate or prosecute any alcohol or drug abuse patient.[facility] Reason for Visit * Reason Comments Radiology XR Encounter Details Date Type Department Care Team (Late st Contact Info) Description 11/21/2020 Radiology General Radiology [address] [place] [place] [address] Jonah Pavon, RT(R) Radiology XR Social History [...] ot on file 01/16/2020 Data from: https://www.neighborhoodatlas.[facility]/. Last address used for calculation Not [...] (Rn) (Hist), RN documented in this encounter Progress [...] Contact Info) Description 08/30/2024 9:30 AM EDT [facility] Endocrinology [address] [place] [address] Greg Nina APRN.AC/DC REWINDER [address] [place], [place] 7[address] diabetes follow up with me in 3 months virtually 11/20/2024 1:00 PM EDT [facility] Endocrinology [address] [place] [address] Valdez Suarez MD [address] [place] [address] [address] [place], [place] 7[address]8535 follow up in 6 months documented as of this encounter Visit Diagnoses Not on filedocumented in this encounter Care Teams Plate Corrector Relationship Specialty Start Date End Date Farhat Cabezas MD PCP - General Family Medicine 01/13/11 Farhat Cabezas MD Referring Family Medicine 01/08/22 Farhat Cabezas MD [address] [phone] Referring Family Medicine 07/26/24 documented as of this encounter
--- OUTSIDE RECORDS SUMMARY | 2024-08-17 13:13 | XMS_ITS | Encounter Summary ---
Demographics Address [address] [place] [address] Home Phone Mobile Phone Email Address Preferred Language ENG Marital Status Single Spiritism Affiliation Unknown Race White Ethnic Group Not or Lati no Author Organization [facility] Address [facility] [place] [address] Care Team Providers Care Service Desk Analyst Name Role Phone Farhat Cabezas MD Primary Care Provider [phone] Farhat Cabezas MD Unavailable [phone] Farhat Cabezas MD Unavailable [phone] Source Comments In the event this information is protected by the Federal Confidentiality of Alcohol and Drug AbusePatient Records regulations: The Federal rules restrict any use of the information to criminally investigate or prosecute any alcohol or drug abuse patient.[facility] Encounter Details Date Type Department Care Team (Late st Contact Info) Description 11/22/2020 Get Medical Advice [facility] [address] [place] [address] Tammy Rodriges, PT [address] [place] [address] Upcoming Appointment Question Social History [...] N ot on file 01/16/2020 Data from: https://www.neighborhoodatlas.medicine.[facility]/. Last address used for calculation [...] Contact Info) Description 08/30/2024 9:30 AM EDT [facility] Endocrinology [address] [place] [address] Greg Nina APRN.COATINGS INSPECTOR [address] [place], [place] [address]39 diabetes follow up with me in 3 months virtually 11/20/2024 1:00 PM EDT [facility] Endocrinology [address] [place] [address] Valdez Suarez MD [address] [place] [address] [address] [place], [place] [phone] follow up in 6 months documented as of this encounter Visit Diagnoses Not on filedocumented in this encounter Care Teams Service Desk Analyst Relationship Specialty Start Date End Date Farhat Cabezas MD PCP - General Family Medicine 01/13/11 Farhat Cabezas MD Referring Family Medicine 01/08/22 Farhat Cabezas MD [address] [place] [address] Referring Family Medicine 07/26/24 documented as of this encounter
--- OUTSIDE RECORDS SUMMARY | 2024-08-17 13:13 | XMS_ITS | Encounter Summary ---
Demographics Address [address] [place] [address] Home Phone Mobile Phone Email Address Preferred Language ENG Marital Status Single Catholic Affiliation Unknown Race White Ethnic Group Not or Lati no Author Organization [facility] Address [address] [place] [address] Care Team Providers Care Eastern Philosophy Professor Name Role Phone Farhat Cabezas MD Primary Care Provider [phone] Farhat Cabezas MD Unavailable [phone] Farhat Cabezas MD Unavailable [phone] Source Comments In the event this information is protected by the Federal Confidentiality of Alcohol and Drug AbusePatient Records regulations: The Federal rules restrict any use of the information to criminally investigate or prosecute any alcohol or drug abuse patient.[facility] Encounter Details Date Type Department Care Team (Late st Contact Info) Description 08/20/2016 Get Medical Advice Rheumatology [address] [place] [address] Zabrina Culver MD [address] [place], [place] 5855053 RE: Non-Urgent Medical Question Social History Tobacco [...] on file documented as of this encounter Miscellaneous Notes * Telephone Encounter - Abiola Zabrina - 08/20/2016 5:48 PM EDT Call patient Thank you for the detailed update. Anti nausea med sent to pharmacy May have some drowsiness, unfortunately all anti nausea meds have that possible side effect. Headache may be from not enough water intake, please increase water intake from now on, especially when taking methotrexate Please notify office with progress update Thank you. Patient's request for medication is as follows: Signed Prescriptions Disp Refills promethazine (PHENERGAN) 25 mg tablet 90 tablet 3 Sig: Take 1 tablet by mouth every 8 hours as needed. Prescription(s) as above. Please process accordingly. Zabrina Culver MD documented in this encounter Plan of Treatment Upcoming Encounters Date Type Department Care Team (Late st Contact Info) Description 08/30/2024 9:30 AM EDT [facility] Endocrinology [address] [place] [address] Greg Nina APRN.ELECTRONIC ASSEMBLER [address] [place] [address] diabetes follow up with tx in 3 months virtually 11/20/2024 1:00 PM EDT [facility] Endocrinology [address] [place] [address] Valdez Suarez MD [address] [place] [address] [place] [address] follow up in 6 months documented as of this encounter Visit Diagnoses Diagnosis Nausea and vomiting in adult- Primary Nausea with vomiting documented in this encounter Care Teams Eastern Philosophy Professor Relationship Specialty Start Date End Date Farhat Cabezas MD PCP - General Family Medicine 01/13/11 Farhat Cabezas MD Referring Family Medicine 01/08/22 Farhat Cabezas MD [address] [place] [address] Referring Family Medicine 07/26/24 documented as of this encounter
--- OUTSIDE RECORDS SUMMARY | 2024-08-17 13:14 | XMS_ITS | Encounter Summary ---
Demographics Address [address] [place] [address] Home Phone Mobile Phone Email Address Preferred Language ENG Marital Status Single Jainism Affiliation Unknown Race White Ethnic Group Not or Lati no Author Organization [facility] Address [address] [place] [address] Care Team Providers Care Life Skills Trainer Name Role Phone Farhat Cabezas MD Primary Care Provider [phone] Farhat Cabezas MD Unavailable [phone] Farhat Cabezas MD Unavailable [phone] Source Comments In the event this information is protected by the Federal Confidentiality of Alcohol and Drug AbusePatient Records regulations: The Federal rules restrict any use of the information to criminally investigate or prosecute any alcohol or drug abuse patient.[facility] Encounter Details Date Type Department Care Team (Late st Contact Info) Description 11/05/2020 Patient Msg [facility] [address] [facility]NOTE 3] [place] [id number] Provider, Ccf Referral- CONSULT FOR ACUPUNCTURE Social [...] N ot on file 01/16/2020 Data from: https://www.neighborhoodatlas.[facility]/. Last address used for calculation Not on [...] [facility] Endocrinology [address] [place] [address] Greg Nina, MERCHANT MILL UTILITY WORKER.SOLAR DEVELOPMENT ENGINEER [address] [place], [place] 7101739 diabetes follow up with me in 3 months virtually 11/20/2024 1:00 PM EDT [facility] Endocrinology [address] [place] [address] Valdez Suarez MD [address] [place] [address] [place] [address] follow up in 6 months documented as of this encounter Visit Diagnoses Not on filedocumented in this encounter Care Teams Life Skills Trainer Relationship Specialty Start Date End Date Farhat Cabezas MD PCP - General Family Medicine 01/13/11 Farhat Cabezas MD Referring Family Medicine 01/08/22 Farhat Cabezas MD [address] [place] [address] Referring Family Medicine 07/26/24 documented as of this encounter
--- OUTSIDE RECORDS SUMMARY | 2024-08-17 13:14 | XMS_ITS | Encounter Summary ---
Author Organization [facility] Address [address] [place] [address] Care Team Providers Care Workers Compensation Claims Supervisor Name Role Phone Farhat Cabezas MD Primary Care Provider [phone] Faraht Cabezas MD Unavailable [phone] Farhat Cabezas MD Unavailable [phone] Source Comments In the event this information is protected by the Federal Confidentiality of Alcohol and Drug AbusePatient Records regulations: The Federal rules restrict any use of the information to criminally investigate or prosecute any alcohol or drug abuse patient.[facility] Encounter Details Date Type Department Care Team (Late st Contact Info) Description 10/27/2016 Patient Msg General Surgery [address] [place] [address] Monica Adam RN Survey Social History Tobacco Use Types Packs/Day [...] AM EDT [facility] Endocrinology [address] [place] [phone] Greg Nina APRN.CREDIT UNION EXAMINER [address] [place] [address] diabetes follow up with me in 3 months virtually 11/20/2024 1:00 PM EDT [facility] Endocrinology [address] [place] [address] Valdez Suarez MD [address] [place] [address] [address] [place], [place] [address]38[address] follow up in 6 months documented as of this encounter Visit Diagnoses Not on filedocumented in this encounter Care Teams Workers Compensation Claims Supervisor Relationship Specialty Start Date End Date Farhat Cabezas MD PCP - General Family Medicine 01/13/11 Farhat Cabezas MD Referring Family Medicine 01/08/22 Farhat Cabezas MD [address] [place] [address] Referring Family Medicine 07/26/24 documented as of this encounter
--- OUTSIDE RECORDS SUMMARY | 2024-08-17 13:14 | XMS_ITS | Encounter Summary ---
Author Organization [facility] Address [address] [place] [address] Care Team Providers Care Brim Presser Name Role Phone Farhat Cabezas MD Primary Care Provider [phone] Farhat Cabezas MD Unavailable [phone] Farhat Cabezas MD Unavailable [phone] Source Comments In the event this information is protected by the Federal Confidentiality of Alcohol and Drug AbusePatient Records regulations: The Federal rules restrict any use of the information to criminally investigate or prosecute any alcohol or drug abuse patient.[facility] Encounter Details Date Type Department Care Team (Late st Contact Info) Description 05/26/2018 Abstract [facility] REJ [address] [place] [address] Rachel Yi MD [address] [place] [address] Social History Tobacco Use Types [...] Description 08/30/2024 9:30 AM EDT [facility] Endocrinology [address] [place] [address] Greg Nina APRN.ELECTRIC LOCOMOTIVE CRANE OPERATOR [address] [place] [address] diabetes follow up with me in 3 months virtually 11/20/2024 1:00 PM EDT [facility] Endocrinology [address] [place] [phone] Valdez Suarez MD [address] [place] [address] [address] [place], [place] [address] follow up in 6 months documented as of this encounter Visit Diagnoses Not on filedocumented in this encounter Care Teams Brim Presser Relationship Specialty Start Date End Date Farhat Cabezas MD PCP - General Family Medicine 01/13/11 Farhat Cabezas MD Referring Family Medicine 01/08/22 Farhat Cabezas MD [address] [place] [address] Referring Family Medicine 07/26/24 documented as of this encounter
--- OUTSIDE RECORDS SUMMARY | 2024-08-17 13:14 | XMS_ITS | Encounter Summary ---
Author Organization [facility] Address [address] [place] [address] Care Team Providers Care Granite Sandblaster Apprentice Name Role Phone Farhat Cabezas MD Primary Care Provider [phone] Farhat Cabezas MD Unavailable [phone] Farhat Cabezas MD Unavailable [phone] Source Comments In the event this information is protected by the Federal Confidentiality of Alcohol and Drug AbusePatient Records regulations: The Federal rules restrict any use of the information to criminally investigate or prosecute any alcohol or drug abuse patient.[facility] Encounter Details Date Type Department Care Team (Late st Contact Info) Description 02/24/2017 Patient Msg Medical Records [address] [place] [address] Provider, Ccf Follow Up from [facility] [...] Date Author No 12/14/2016 12:43 PM Mona Dbuose (Rn) (Hist), RN documented in this encounter Plan of Treatment Upcoming Encounters Date Type Department Care Team (Late st Contact Info) Description 08/30/2024 9:30 AM EDT [facility] Endocrinology [address] [place] [phone] Greg Nina APRN.SALES ACCOUNT DIRECTOR [address] [place] [address] diabetes follow up with me in 3 months virtually 11/20/2024 1:00 PM EDT [facility] Endocrinology [address] [place] [address] Valdez Suarez MD [address] [place] [address] [place], [place] 18[address]035 follow up in 6 months documented as of this encounter Visit Diagnoses Not on filedocumented in this encounter Care Teams Granite Sandblaster Apprentice Relationship Specialty Start Date End Date Farhat Cabezas MD PCP - General Family Medicine 01/13/11 Farhat Cabezas MD Referring Family Medicine 01/08/22 Farhat Cabezas MD [address] [place] [address] Referring Family Medicine 07/26/24 documented as of this encounter
--- OUTSIDE RECORDS SUMMARY | 2024-08-17 13:14 | XMS_ITS | Encounter Summary ---
Demographics Address [address] [facility] [place] [address] Home Phone Mobile Phone Email Address Preferred Language ENG Marital Status Single Pentecostalism Affiliation Unknown Race White Ethnic Group Not or Lati no Author Organization [facility] Address [address] [place] [address] Care Team Providers Care Needleworker Name Role Phone Farhat Cabezas MD Primary Care Provider [phone] Farhat Cabezas MD Unavailable [phone] Farhat Cabezas MD Unavailable [phone] Source Comments In the event this information is protected by the Federal Confidentiality of Alcohol and Drug AbusePatient Records regulations: The Federal rules restrict any use of the information to criminally investigate or prosecute any alcohol or drug abuse patient.[facility] Encounter Details Date Type Department Care Team (Late st Contact Info) Description 12/22/2020 Patient Msg [facility]tr [facility] [address] [facility] [place] [id number] Provider, Ccf Request an Appointment Social History [...] N ot on file 01/16/2020 Data from: https://www.neighborhoodatlas.[facility]/. Last address used for calculation Not [...] EDT [facility] Endocrinology [address] [place] [address] Greg Nina APRN.PARK WARDEN [address] [place] [address] diabetes follow up with me in 3 months virtually 11/20/2024 1:00 PM EDT [facility] Endocrinology [address] [place] [address] Valdez Suarez MD [address] [place] [address] [place], [place] [address]12[address] follow up in 6 months documented as of this encounter Visit Diagnoses Not on filedocumented in this encounter Care Teams Needleworker Relationship Specialty Start Date End Date Farhat Cabezas MD PCP - General Family Medicine 01/13/11 Farhat Cabezas MD Referring Family Medicine 01/08/22 Farhat Cabezas MD [address] [place] [address] Referring Family Medicine 07/26/24 documented as of this encounter
--- OUTSIDE RECORDS SUMMARY | 2024-08-17 13:14 | XMS_ITS | Encounter Summary ---
Demographics Address [address] [place] [place] [address] Home Phone Mobile Phone Email Address Preferred Language ENG Marital Status Single Scientology Affiliation Unknown Race White Ethnic Group Not or Lati no Author Organization [facility] Address [address] [place] [address] Care Team Providers Care Scrap Metal Processing Worker Name Role Phone Farhat Cabezas MD Primary Care Provider [phone] Farhat Cabezas MD Unavailable [phone] Farhat Cabezas MD Unavailable [phone] Source Comments In the event this information is protected by the Federal Confidentiality of Alcohol and Drug AbusePatient Records regulations: The Federal rules restrict any use of the information to criminally investigate or prosecute any alcohol or drug abuse patient.[facility] Encounter Details Date Type Department Care Team (Late st Contact Info) Description 01/05/2021 Get Medical Advice Rheumatology [address] [address] Lorenzo Perry DO [address] [facility] [address] [place] [phone] Mri/pain shoulder Social History Tobacco Use Types [...] N ot on file 01/16/2020 Data from: https://www.neighborhoodatlas.medicine.[facility]/. Last address used for calculation Not on [...] Description 08/30/2024 9:30 AM EDT [facility] Endocrinology [address] [place] [address] Greg Nina APRN.IMPACT HAMMER OPERATOR [address] [place] [address] diabetes follow up with me in 3 months virtually 11/20/2024 1:00 PM EDT [facility] Endocrinology [address] [place] [address] Valdez Suarez MD [address] [place] [address] [address] [place], [place] [address] follow up in 6 months documented as of this encounter Visit Diagnoses Not on filedocumented in this encounter Care Teams Scrap Metal Processing Worker Relationship Specialty Start Date End Date Farhat Cabezas MD PCP - General Family Medicine 01/13/11 Farhat Cabezas MD Referring Family Medicine 01/08/22 Farhat Cabezas MD [address] [place] [address] Referring Family Medicine 07/26/24 documented as of this encounter
--- OUTSIDE RECORDS SUMMARY | 2024-08-17 13:14 | XMS_ITS | Encounter Summary ---
Author Organization [facility] Address [address] [place] [address] Care Team Providers Care Office Support Name Role Phone Farhat Cabezas MD Primary Care Provider [phone] Farhat Cabezas MD Unavailable [phone] Farhat Cabezas MD Unavailable [phone] Source Comments In the event this information is protected by the Federal Confidentiality of Alcohol and Drug AbusePatient Records regulations: The Federal rules restrict any use of the information to criminally investigate or prosecute any alcohol or drug abuse patient.[facility] Encounter Details Date Type Department Care Team (Late st Contact Info) Description 04/15/2018 Patient Msg Medical Records [address] [place] [address] Provider, Ccf Counseling Referrals Social History Tobacco [...] AM EDT [facility] Endocrinology [address] [place] [address] Greg Nina APRN.RESIDENTIAL DIRECTOR [address] [place] [address] diabetes follow up with me in 3 months virtually 11/20/2024 1:00 PM EDT [facility] Endocrinology [address] [place] [address] Valdez Suarez MD [address] [place] [address] [address] [place], [place] 3175435 follow up in 6 months documented as of this encounter Visit Diagnoses Not on filedocumented in this encounter Care Teams Office Support Relationship Specialty Start Date End Date Farhat Cabezas MD PCP - General Family Medicine 01/13/11 Farhat Cabezas MD Referring Family Medicine 01/08/22 Farhat Cabezas MD [address] [place] [address] Referring Family Medicine 07/26/24 documented as of this encounter
--- OUTSIDE RECORDS SUMMARY | 2024-08-17 13:14 | XMS_ITS | Encounter Summary ---
Author Organization [facility] Address [address] [place] [address] Care Team Providers Care Automobile Damage Field Appraiser Name Role Phone Farhat Cabezas MD Primary Care Provider [phone] Farhat Cabezas MD Unavailable [phone] Farhat Cabezas MD Unavailable [phone] Source Comments In the event this information is protected by the Federal Confidentiality of Alcohol and Drug AbusePatient Records regulations: The Federal rules restrict any use of the information to criminally investigate or prosecute any alcohol or drug abuse patient.[facility] Encounter Details Date Type Department Care Team (Late st Contact Info) Description 02/09/2018 Patient Msg General Surgery [address] [place] [address] Monica Adam RN labs Social History Tobacco Use Types Packs/Day [...] 9:30 AM EDT [facility] Endocrinology [address] [place] [address] Greg Nina APRN.FISCAL MANAGER [address] [place] [address] diabetes follow up with me in 3 months virtually 11/20/2024 1:00 PM EDT [facility] Endocrinology [address] [place] [address] Valdez Suarez MD [address] [place] [address] [address] [place], [place] [phone] follow up in 6 months documented as of this encounter Visit Diagnoses Not on filedocumented in this encounter Care Teams Automobile Damage Field Appraiser Relationship Specialty Start Date End Date Farhat Cabezas MD PCP - General Family Medicine 01/13/11 Farhat Cabezas MD Referring Family Medicine 01/08/22 Farhat Cabezas MD [address] [place] [address] Referring Family Medicine 07/26/24 documented as of this encounter
--- OUTSIDE RECORDS SUMMARY | 2024-08-17 13:14 | XMS_ITS | Encounter Summary ---
Demographics Address [address] [facility] [place] [address] Home Phone Mobile Phone Email Address Preferred Language ENG Marital Status Single Confucianist Affiliation Unknown Race White Ethnic Group Not or Lati no Author Organization [facility] Address [address] [place] [address] Care Team Providers Care Collector Name Role Phone Farhat Cabezas MD Primary Care Provider [phone] Farhat Cabezas MD Unavailable [phone] Farhat Cabezas MD Unavailable [phone] Source Comments In the event this information is protected by the Federal Confidentiality of Alcohol and Drug AbusePatient Records regulations: The Federal rules restrict any use of the information to criminally investigate or prosecute any alcohol or drug abuse patient.[facility] Encounter Details Date Type Department Care Team (Late st Contact Info) Description 12/11/2020 Patient Msg Pain Management [address] [place], [place] [phone] Provider, Ccf 3 month virtual appointment with [...] N ot on file 01/16/2020 Data from: https://www.neighborhoodatlas.medicine.[facility]/. Last address used for calculation Not on [...] 9:30 AM EDT [facility] Endocrinology [address] [place] [address] Greg Nina APRN.FLOORING SALES MANAGER [address] [place] [address] diabetes follow up with me in 3 months virtually 11/20/2024 1:00 PM EDT [facility] Endocrinology [address] [place] [address] Valdez Suarez MD [address] [place] [address] [address] [place], [place] [address] follow up in 6 months documented as of this encounter Visit Diagnoses Not on filedocumented in this encounter Care Teams Collector Relationship Specialty Start Date End Date Farhat Cabezas MD PCP - General Family Medicine 01/13/11 Farhat Cabezas MD Referring Family Medicine 01/08/22 Farhat Cabezas MD [address] [place] [address] Referring Family Medicine 07/26/24 documented as of this encounter
--- OUTSIDE RECORDS SUMMARY | 2024-08-17 13:14 | XMS_ITS | Encounter Summary ---
Demographics Address [address] [facility] [place] [address] Home Phone Mobile Phone Email Address Preferred Language ENG Marital Status Single Mormonism Affiliation Unknown Race White Ethnic Group Not or Lati no Author Organization [facility] Address [address] [place] [address] Care Team Providers Care Field Producer Name Role Phone Farhat Cabezas MD Primary Care Provider [phone] Farhat Cabezas MD Unavailable [phone] Farhat Cabezas MD Unavailable [phone] Source Comments In the event this information is protected by the Federal Confidentiality of Alcohol and Drug AbusePatient Records regulations: The Federal rules restrict any use of the information to criminally investigate or prosecute any alcohol or drug abuse patient.[facility] Encounter Details Date Type Department Care Team (Late st Contact Info) Description 02/04/2021 Get Medical Advice Rheumatology [address] [address] Lorenzo Perry DO 4302 [facility] [address] [place] [id number] Medication / Pain issues Social History Tobacco [...] ot on file 01/16/2020 Data from: https://www.neighborhoodatlas.medicine.[facility]/. Last address used for [...] Contact Info) Description 08/30/2024 9:30 AM EDT [facility] Endocrinology [address] [place] [address] Greg Nina APRN.CARDIOLOGY PHYSICIAN ASSISTANT [address] [place] [address] diabetes follow up with me in 3 months virtually 11/20/2024 1:00 PM EDT [facility] Endocrinology [address] [place] [address] Valdez Suarez MD [address] [place] [address] [address] [place], [place] [phone] follow up in 6 months documented as of this encounter Visit Diagnoses Not on filedocumented in this encounter Care Teams Field Producer Relationship Specialty Start Date End Date Farhat Cabezas MD PCP - General Family Medicine 01/13/11 Farhat Cabezas MD Referring Family Medicine 01/08/22 Farhat Cabezas MD [address] [place] [address] Referring Family Medicine 07/26/24 documented as of this encounter
--- OUTSIDE RECORDS SUMMARY | 2024-08-17 13:14 | XMS_ITS | Encounter Summary ---
Demographics Address [address] [facility] [place] [address] Home Phone Mobile Phone Email Address Preferred Language ENG Marital Status Single Religion Affiliation Unknown Race White Ethnic Group Not or Lati no Author Organization [facility] Address [address] [place] [address] Care Team Providers Care Reset Merchandiser Name Role Phone Farhat Cabezas MD Primary Care Provider [phone] Farhat Cabezas MD Unavailable [phone] Farhat Cabezas MD Unavailable [phone] Source Comments In the event this information is protected by the Federal Confidentiality of Alcohol and Drug AbusePatient Records regulations: The Federal rules restrict any use of the information to criminally investigate or prosecute any alcohol or drug abuse patient.[facility] Encounter Details Date Type Department Care Team (Late st Contact Info) Description 12/22/2020 Patient Msg Rheumatology [address] [address] Lorenzo Perry DO 4302 [facility] 440 [place] [address] Request an Appointment Social History Tobacco Use [...] N ot on file 01/16/2020 Data from: https://www.neighborhoodatlas.medicine.[facility]/. Last address used for calculation [...] AM EDT [facility] Endocrinology [address] [place] [address] Greg Nina APRN.CONDENSER TUBE TENDER [address] [place] [address] diabetes follow up with me in 3 months virtually 11/20/2024 1:00 PM EDT [facility] Endocrinology [address] [place] [address] Valdez Suarez MD [address] [place] [address] [address] [place], [place] 0032535 follow up in 6 months documented as of this encounter Visit Diagnoses Not on filedocumented in this encounter Care Teams Reset Merchandiser Relationship Specialty Start Date End Date Farhat Cabezas MD PCP - General Family Medicine 01/13/11 Farhat Cabezas MD Referring Family Medicine 01/08/22 Farhat Cabezas MD [address] [place] [address] Referring Family Medicine 07/26/24 documented as of this encounter
--- OUTSIDE RECORDS SUMMARY | 2024-08-17 13:14 | XMS_ITS | Encounter Summary ---
Demographics Address [address] [place] [address] Home Phone Mobile Phone Email Address Preferred Language ENG Marital Status Single Mormonism Affiliation Unknown Race White Ethnic Group Not or Lati no Author Organization [facility] Address [address] [place] [address] Care Team Providers Care Fiberglass Dowel Drawing Operator Name Role Phone Farhat Cabezas MD Primary Care Provider [phone] Farhat Cabezas MD Unavailable [phone] Farhat Cabezas MD Unavailable [phone] Source Comments In the event this information is protected by the Federal Confidentiality of Alcohol and Drug AbusePatient Records regulations: The Federal rules restrict any use of the information to criminally investigate or prosecute any alcohol or drug abuse patient.[facility] Encounter Details Date Type Department Care Team (Late st Contact Info) Description 01/20/2021 [place] [address] Provider, Ccf MRI Screening Questionnaire Completion Required [...] N ot on file 01/16/2020 Data from: https://www.[facility] memorial hospitalatlas.[facility]/. Last address used for calculation Not on [...] Contact Info) Description 08/30/2024 9:30 AM EDT [facility] Endocrinology [address] [place] [address] Greg Nina APRN.HOG SLAUGHTERER [address] [place], [place] [phone] diabetes follow up with me in 3 months virtually 11/20/2024 1:00 PM EDT [facility] Endocrinology [address] [place] [address] Valdez Suarez MD [address] [place] [address] [address] [place], [place] [phone] follow up in 6 months documented as of this encounter Visit Diagnoses Not on filedocumented in this encounter Care Teams Fiberglass Dowel Drawing Operator Relationship Specialty Start Date End Date Farhat Cabezas MD PCP - General Family Medicine 01/13/11 Farhat Cabezas MD Referring Family Medicine 01/08/22 [place] [address] [place] [address] Referring Family Medicine 07/26/24 documented as of this encounter
--- OUTSIDE RECORDS SUMMARY | 2024-08-17 13:14 | XMS_ITS | Encounter Summary ---
Author Organization [facility] Address [facility] [place] [address] Care Team Providers Care Special Effects Artist Name Role Phone Farhat Cabezas MD Primary Care Provider [phone] Farhat Cabezas MD Unavailable [phone] Farhat Cabezas MD Unavailable [phone] Source Comments In the event this information is protected by the Federal Confidentiality of Alcohol and Drug AbusePatient Records regulations: The Federal rules restrict any use of the information to criminally investigate or prosecute any alcohol or drug abuse patient.[facility] Encounter Details Date Type Department Care Team (Late st Contact Info) Description 10/25/2016 Patient Msg Medical Records [address] [place] [address] Provider, Ccf [facility] Program [...] 08/30/2024 9:30 AM EDT [facility] Endocrinology [address] [place] [address] Greg Nina APRN.INTERLIBRARY LOAN SPECIALIST [address] [place] [address] diabetes follow up with me in 3 months virtually 11/20/2024 1:00 PM EDT [facility] Endocrinology [address] [place] [phone] Valdez Suarez MD [address] [place] [address] [address] [place], [place] [phone] follow up in 6 months documented as of this encounter Visit Diagnoses Not on filedocumented in this encounter Care Teams Special Effects Artist Relationship Specialty Start Date End Date Farhat Cabezas MD PCP - General Family Medicine 01/13/11 Farhat Cabezas MD Referring Family Medicine 01/08/22 Farhat Cabezas MD [address] [place] [address] Referring Family Medicine 07/26/24 documented as of this encounter
--- OUTSIDE RECORDS SUMMARY | 2024-08-17 13:14 | XMS_ITS | Encounter Summary ---
Author Organization [facility] Address [address] [place] [address] Care Team Providers Care Cassandra Consultant Name Role Phone Farhat Cabezas MD Primary Care Provider [phone] Farhat Cabezas MD Unavailable [phone] Farhat Cabezas MD Unavailable [phone] Source Comments In the event this information is protected by the Federal Confidentiality of Alcohol and Drug AbusePatient Records regulations: The Federal rules restrict any use of the information to criminally investigate or prosecute any alcohol or drug abuse patient.[facility] Encounter Details Date Type Department Care Team (Late st Contact Info) Description 08/26/2017 Patient Msg General Surgery 9300 [place] [address] Monica Adam RN diarrhea Social History Tobacco [...] Contact Info) Description 08/30/2024 9:30 AM EDT [facility] Endocrinology [address] [place] [address] Greg Nina APRN.REVENUE INSPECTOR [address] [place] [address] diabetes follow up with me in 3 months virtually 11/20/2024 1:00 PM EDT [facility] Endocrinology [address] [place] [address] Valdez Suarez MD [address] [place] [address] [address] [place], [place] [phone] follow up in 6 months documented as of this encounter Visit Diagnoses Not on filedocumented in this encounter Care Teams Cassandra Consultant Relationship Specialty Start Date End Date Farhat Cabezas MD PCP - General Family Medicine 01/13/11 Farhat Cabezas MD Referring Family Medicine 01/08/22 Farhat Cabezas MD [address]65 [place] [address] Referring Family Medicine 07/26/24 documented as of this encounter
--- OUTSIDE RECORDS SUMMARY | 2024-08-17 13:14 | XMS_ITS | Encounter Summary ---
Author Organization [facility] Address [address] [place] [address] Care Team Providers Care Car Rental Agency Manager Name Role Phone Farhat Cabezas MD Primary Care Provider [phone] Farhat Cabezas MD Unavailable [phone] Farhat Cabezas MD Unavailable [phone] Source Comments In the event this information is protected by the Federal Confidentiality of Alcohol and Drug AbusePatient Records regulations: The Federal rules restrict any use of the information to criminally investigate or prosecute any alcohol or drug abuse patient.[facility] Encounter Details Date Type Department Care Team (Late st Contact Info) Description 10/04/2017 Patient Msg General Surgery [address] [place] [address] Provider, Ccf EGD/Colonoscopy Prep Instructions for 10/13/17 [...] AM EDT [facility] Endocrinology [address] [place] [address] Greg Nina APRN.CORRESPONDENCE TRANSCRIBER [address] [place] [address] diabetes follow up with me in 3 months virtually 11/20/2024 1:00 PM EDT [facility] Endocrinology [address] [place] [address] Valdez Suarez MD [address] [place] [address] [address] [place], [place] [phone] follow up in 6 months documented as of this encounter Visit Diagnoses Not on filedocumented in this encounter Care Teams Car Rental Agency Manager Relationship Specialty Start Date End Date Farhat Cabezas MD PCP - General Family Medicine 01/13/11 Farhat Cabezas MD Referring Family Medicine 01/08/22 Farhat Cabezas MD [address] [place] [address] Referring Family Medicine 07/26/24 documented as of this encounter
--- OUTSIDE RECORDS SUMMARY | 2024-08-17 13:14 | XMS_ITS | Encounter Summary ---
Demographics Address [address] [place] [address] Home Phone Mobile Phone Email Address Preferred Language ENG Marital Status Single Mandaeism Affiliation Unknown Race White Ethnic Group Not or Lati no Author Organization [facility] Address [address] [place] [address] Care Team Providers Care Branch Sales Manager Name Role Phone Farhat Cabezas MD Primary Care Provider [phone] Farhat Cabezas MD Unavailable [phone] Farhat Cabezas MD Unavailable [phone] Source Comments In the event this information is protected by the Federal Confidentiality of Alcohol and Drug AbusePatient Records regulations: The Federal rules restrict any use of the information to criminally investigate or prosecute any alcohol or drug abuse patient.[facility] Encounter Details Date Type Department Care Team (Late st Contact Info) Description 11/14/2020 Get Medical Advice Neurology [address] [place], [place] [phone] Jaelyn Rangel MD NO FORWARDING ADDRESS RE: [...] N ot on file 01/16/2020 Data from: https://www.neighborhoodatlas.[facility]/. Last [...] Contact Info) Description 08/30/2024 9:30 AM EDT [facility] Endocrinology [address] [place] [address] Greg Nina MARITZA.ORDNANCE ARTIFICER HELPER [address] [place] [address] diabetes follow up with me in 3 months virtually 11/20/2024 1:00 PM EDT [facility] Endocrinology [address] [place] [address] Valdez Suarez MD [address] [place] [address] [place] [address] follow up in 6 months documented as of this encounter Visit Diagnoses Not on filedocumented in this encounter Care Teams Branch Sales Manager Relationship Specialty Start Date End Date Farhat Cabezas MD PCP - General Family Medicine 01/13/11 Farhat Cabezas MD Referring Family Medicine 01/08/22 Farhat Cabezas MD [address] [place] [address] Referring Family Medicine 07/26/24 documented as of this encounter
--- OUTSIDE RECORDS SUMMARY | 2024-08-17 13:14 | XMS_ITS | Encounter Summary ---
Author Organization [facility] Address [address] [place] [address] Care Team Providers Care Development Representative Name Role Phone Farhat Cabezas MD Primary Care Provider [phone] Farhat Cabezas MD Unavailable [phone] Farhat Cabezas MD Unavailable [phone] Source Comments In the event this information is protected by the Federal Confidentiality of Alcohol and Drug AbusePatient Records regulations: The Federal rules restrict any use of the information to criminally investigate or prosecute any alcohol or drug abuse patient.[facility] Reason for Referral * MRI/CT (Routine) - Closed Specialty Diagnoses / Procedures Referred By Kalina burciaga Referred To Contact MR IMAGING Diagnoses Chronic right shoulder pain Procedures MRI SHOULDER WO IVCON RT MRI, JOINT UPPER EXTREM Lorenzo Perry DO Phone: tel: fax: [place] [id number] Referral ID Status Reason Start Date Expiration Date Visits Requested Visits Authorized [id number] Closed Auto-Generated Referral Patient Cleared Patient agrees to sign AFR (INN Commercial or OON MA) 01/07/2021 02/07/2021 1 1 Encounter Details Date Type Department Care Team (Late st Contact Info) Description 12/27/2020 Get Medical Advice Rheumatology [address] [phone] Lorenzo Perry DO [address] [place] [address] MRI Social History Tobacco Use Types Packs/Day [...] N ot on file 01/16/2020 Data from: https://www.neighborhoodatlas.medicine.[facility]/. Last address used for calculation Not on [...] Author No 12/14/2016 12:43 PM EST Mona Cook) (Hist), RN * Are you blind or do you have serious difficulty seeing, even when wearing glasses? Answer Date of Assessment Author No 12/14/2016 12:43 PM EST Mona Cook) (Hist), RN * Do you have serious difficulty walking or climbing stairs? Answer Date of Assessment Author No 12/14/2016 12:43 PM Mona Dubose) (Hist), RN * Do you have difficulty [...] 08/30/2024 9:30 AM EDT [facility] Endocrinology [address] [place] [address] Greg Nina APRN.OUTSIDE MAINTENANCE WORKER [address] [place], [place] [phone] diabetes follow up with me in 3 months virtually 11/20/2024 1:00 PM EDT [facility] Endocrinology [address] [place] [phone] Valdez Suarez MD [address] [place] [address] [address] [place], [place] [phone] follow up in 6 months documented as of this encounter Results * MRI SHOULDER WO IVCON RT (01/08/2021 1:30 PM EST) Anatomical Region Laterality Modality Shoulder Magnetic Resonan ce 01/08/2021 1:30 PM EST Impressions 01/08/2021 3:06 PM EST IMPRESSION: Very small near full-thickness tear of the supraspinatus tendon at the anterior leading edge. Background rotator cuff tendinosis. Weed Cooking Operator: SILVIA Transcribe Date/Time: Jan 08 2021 1:46P Dictated by : GERARDO VALLEJO MD This examination was interpreted and the report reviewed and electronically signed by: GERARDO VALLEJO MD on Jan 08 2021 3:04PM EST Narrative 01/08/2021 3:06 PM EST * * *Final Report* * * DATE OF EXAM: Jan 08 2021 1:30PM [facility] 0240 - MRI SHOULDER WO IVCON [...] findings. Localizer images: Unremarkable. Procedure Note Provider, [facility] [place] - 01/08/2021 * * *Final Report* * * DATE OF EXAM: Jan 08 2021 1:30PM [facility] 0240 - MRI SHOULDER WO IVCON [...] anterior leading edge. Background rotator cuff tendinosis. Weed Cooking Operator[facility] Transcribe Date/Time: Jan 08 2021 1:46P Dictated by : GERARDO VALLEJO MD This examination was interpreted and the report reviewed and electronically signed by: GERARDO VALLEJO MD on Jan 08 2021 3:04PM EST us Lorenzo Perry DO MRI-PAMA Final Resul t documented in this encounter Visit Diagnoses Diagnosis Chronic right shoulder pain Pain in joint, shoulder region Chronic right shoulder pain Pain in joint, shoulder region documented in this encounter Care Teams Development Representative Relationship Specialty Start Date End Date Farhat Cabezas MD PCP - General Family Medicine 01/13/11 Farhat Cabezas MD Referring Family Medicine 01/08/22 Farhat Cabezas MD [address] [place] [address] Referring Family Medicine 07/26/24 documented as of this encounter
--- OUTSIDE RECORDS SUMMARY | 2024-08-17 13:14 | XMS_ITS | Encounter Summary ---
Demographics Address [address] [place] [address] Home Phone Mobile Phone Email Address Preferred Language ENG Marital Status Single Rastafari Affiliation Unknown Race White Ethnic Group Not or Lati no Author Organization [facility] Address [address] [place] [address] Care Team Providers Care Automobile Club Membership Sales Agent Name Role Phone Farhat Cabezas MD Primary Care Provider [phone] Farhat Cabezas MD Unavailable [phone] Farhat Cabezas MD Unavailable [phone] Source Comments In the event this information is protected by the Federal Confidentiality of Alcohol and Drug AbusePatient Records regulations: The Federal rules restrict any use of the information to criminally investigate or prosecute any alcohol or drug abuse patient.[facility] Reason for Visit * Reason Comments Radiology XR Encounter Details Date Type Department Care Team (Late st Contact Info) Description 12/27/2020 Radiology Radiology [address] [place], [place] [phone] Altagracia Marinelli RT(R) Radiology XR Social History Tobacco Use [...] N ot on file 01/16/2020 Data from: https://www.neighborhoodatlas.[facility]/. Last address used for calculation Not [...] documented in this encounter Progress Notes * Altagracia Marinelli RT(R) - 12/27/2020 1:32 PM EST [...] Contact Info) Description 08/30/2024 9:30 AM EDT [facility] Endocrinology [address] [place] [address] Greg Nina APRN.ENGINEERING FACULTY MEMBER [address] [place] [address] diabetes follow up with me in 3 months virtually 11/20/2024 1:00 PM EDT [facility] Endocrinology [address] [place] [address] Valdez Suarez MD [address] [place] [address] [place], [place] [phone] follow up in 6 months documented as of this encounter Visit Diagnoses Not on filedocumented in this encounter Care Teams Automobile Club Membership Sales Agent Relationship Specialty Start Date End Date Farhat Cabezas MD PCP - General Family Medicine 01/13/11 Farhat Cabezas MD Referring Family Medicine 01/08/22 Farhat Cabezas MD [address] [place] [address] Referring Family Medicine 07/26/24 documented as of this encounter
--- OUTSIDE RECORDS SUMMARY | 2024-08-17 13:14 | XMS_ITS | Encounter Summary ---
Author Organization [facility] Address [address] [place] [address] Care Team Providers Care Blackjack Dealer Name Role Phone Farhat Cabezas MD Primary Care Provider [phone] Farhat Cabezas MD Unavailable [phone] Farhat Cabezas MD Unavailable [phone] Source Comments In the event this information is protected by the Federal Confidentiality of Alcohol and Drug AbusePatient Records regulations: The Federal rules restrict any use of the information to criminally investigate or prosecute any alcohol or drug abuse patient.[facility] Encounter Details Date Type Department Care Team (Late st Contact Info) Description 12/24/2016 Patient Msg Medical Records [address] [place] [address] Provider, Ccf RE:Folllow up from psychology group Social History Tobacco [...] EDT [facility] Endocrinology [address] [place] [address] Greg Nina APRN.ULTIMATE HOOPS SCOREBOARD OPERATOR [address] [place] [address] diabetes follow up with me in 3 months virtually 11/20/2024 1:00 PM EDT [facility] Endocrinology [address] [place] [address] Valdez Suarez MD [address] [place] [address] [place], [place] 5455435 follow up in 6 months documented as of this encounter Visit Diagnoses Not on filedocumented in this encounter Care Teams Blackjack Dealer Relationship Specialty Start Date End Date Farhat Cabezas MD PCP - General Family Medicine 01/13/11 Farhat Cabezas MD Referring Family Medicine 01/08/22 Farhat Cabezas MD [address] [place] [address] Referring Family Medicine 07/26/24 documented as of this encounter
--- OUTSIDE RECORDS SUMMARY | 2024-08-17 13:14 | XMS_ITS | Encounter Summary ---
Demographics Address [address] [facility] [place] [address] Home Phone Mobile Phone Email Address Preferred Language ENG Marital Status Single Advent Affiliation Unknown Race White Ethnic Group Not or Lati no Author Organization [facility] Address [address] [place] [address] Care Team Providers Care Subject Scientific Research Name Role Phone Farhat Cabezas MD Primary Care Provider [phone] Farhat Cabezas MD Unavailable [phone] Farhat Cabezas MD Unavailable [phone] Source Comments In the event this information is protected by the Federal Confidentiality of Alcohol and Drug AbusePatient Records regulations: The Federal rules restrict any use of the information to criminally investigate or prosecute any alcohol or drug abuse patient.[facility] Encounter Details Date Type Department Care Team (Late st Contact Info) Description 02/05/2021 Get Medical Advice Rheumatology [address] [address] Lorenzo Perry DO 4302 [facility] [address] [place] [id number] Fever / aches Social History Tobacco Use [...] N ot on file 01/16/2020 Data from: https://www.neighborhoodatlas.medicine.[facility]/. Last address used for calculation [...] Info) Description 08/30/2024 9:30 AM EDT [facility] Endocrinology [address] [place] [address] Greg Nina APRN.WINDER TENDER [address] [place] [address] diabetes follow up with me in 3 months virtually 11/20/2024 1:00 PM EDT [facility] Endocrinology [address] [place] [address] Valdez Suarez MD [address] [place] [address] [address] [place], [place] 408[address]35 follow up in 6 months documented as of this encounter Visit Diagnoses Not on filedocumented in this encounter Care Teams Subject Scientific Research Relationship Specialty Start Date End Date Farhat Cabezas MD PCP - General Family Medicine 01/13/11 Farhat Cabezas MD Referring Family Medicine 01/08/22 Farhat Cabezas MD [address] [place] [address] Referring Family Medicine 07/26/24 documented as of this encounter
--- OUTSIDE RECORDS SUMMARY | 2024-08-17 13:15 | XMS_ITS | Encounter Summary ---
Demographics Address [address] [facility] [place] [address] Home Phone Mobile Phone Email Address Preferred Language ENG Marital Status Single Catholic Affiliation Unknown Race White Ethnic Group Not or Lati no Author Organization [facility] Address [facility] [place] [address] Care Team Providers Care Drapery Cutter Name Role Phone Farhat Cabezas MD Primary Care Provider [phone] Farhat Cabezas MD Unavailable [phone] Farhat Cabezas MD Unavailable [phone] Source Comments In the event this information is protected by the Federal Confidentiality of Alcohol and Drug AbusePatient Records regulations: The Federal rules restrict any use of the information to criminally investigate or prosecute any alcohol or drug abuse patient.[facility] Encounter Details Date Type Department Care Team (Late st Contact Info) Description 12/01/2022 Patient Msg Neurology 5334 [place] [address] Thaddeus Diggs MD 2386 [place] [address] Follow up Social History Tobacco [...] is lower risk 4 06/11/2022 Data from: https://www.neighborhoodatlas.medicine.[facility]/. Last address used for calculation [address] 06/11/2022 Comments No Sex and Gender [...] 08/30/2024 9:30 AM EDT [facility]ology [address] [place] [address] Greg Nina, MARITZA.UNIVERSITY ADMINISTRATOR [address] [place], [place] [phone] diabetes follow up with me in 3 months virtually 11/20/2024 1:00 PM EDT [facility] Endocrinology [address] [place] [address] Valdez Suarez MD [address] [place] [address] [address] [place], [place] 7122535 follow up in 6 months documented as of this encounter Visit Diagnoses Not on filedocumented in this encounter Care Teams Drapery Cutter Relationship Specialty Start Date End Date Farhat Cabezas MD PCP - General Family Medicine 01/13/11 Farhat Cabezas MD Referring Family Medicine 01/08/22 Farhat Cabezas MD [address] [place] [address] Referring Family Medicine 07/26/24 documented as of this encounter
--- OUTSIDE RECORDS SUMMARY | 2024-08-17 13:15 | XMS_ITS | Encounter Summary ---
Demographics Address [address] [place] [address] Home Phone Mobile Phone Email Address Preferred Language ENG Marital Status Single Yazidi Affiliation Unknown Race White Ethnic Group Not or Lati no Author Organization [facility] Address [address] [place] [address] Care Team Providers Care Soaping Department Supervisor Name Role Phone Farhat Cabezas MD Primary Care Provider [phone] Farhat Cabezas MD Unavailable [phone] Farhat Cabezas MD Unavailable [phone] Source Comments In the event this information is protected by the Federal Confidentiality of Alcohol and Drug AbusePatient Records regulations: The Federal rules restrict any use of the information to criminally investigate or prosecute any alcohol or drug abuse patient.[facility] Encounter Details Date Type Department Care Team (Late st Contact Info) Description 03/08/2023 Patient Msg Endocrinology [address] [place] [address] [place] [address] [place], [place] [phone] Checking-in Social History Tobacco Use Types Packs/Day [...] is lower risk 2 12/21/2022 Data from: https://www.neighborhoodatlas.medicine.[facility]/. Last address used for calculation [address] 12/21/2022 Comments No Sex and [...] 08/30/2024 9:30 AM EDT [facility] Endocrinology [address] [place] [address] Greg Nina APRN.UNIVERSITY ADMINISTRATIVE ASSISTANT [address] [place] [address] diabetes follow up with me in 3 months virtually 11/20/2024 1:00 PM EDT [facility] Endocrinology [address] [place] [address] Valdez Suarez MD [address] [place] [address] [address] [place], [place] [phone] follow up in 6 months documented as of this encounter Visit Diagnoses Not on filedocumented in this encounter Care Teams Soaping Department Supervisor Relationship Specialty Start Date End Date Farhat Cabezas MD PCP - General Family Medicine 01/13/11 Farhat Cabezas MD Referring Family Medicine 01/08/22 Farhat Cabezas MD [address]65 [place] [address] Referring Family Medicine 07/26/24 documented as of this encounter
--- OUTSIDE RECORDS SUMMARY | 2024-08-17 13:15 | XMS_ITS | Encounter Summary ---
Demographics Address [address] [place] [address] Home Phone Mobile Phone Email Address Preferred Language ENG Marital Status Single Samaritan Affiliation Unknown Race White Ethnic Group Not or Lati no Author Organization [facility] Address [address] [place] [address] Care Team Providers Care Pattern Grader Cutter Name Role Phone Farhat Cabezas MD Primary Care Provider [phone] Farhat Cabezas MD Unavailable [phone] Farhat Cabezas MD Unavailable [phone] Source Comments In the event this information is protected by the Federal Confidentiality of Alcohol and Drug AbusePatient Records regulations: The Federal rules restrict any use of the information to criminally investigate or prosecute any alcohol or drug abuse patient.[facility] Encounter Details Date Type Department Care Team (Late st Contact Info) Description 09/16/2022 Patient Msg CB/Gynecology [address] [place] [address] Provider, Ccf Reschedule appt. Social History [...] is lower risk 4 06/11/2022 Data from: https://www.neighborhoodatlas.[facility]/. Last address used for calculation [address] [facility] 06/11/2022 Comments No Sex and Gender Information [...] Contact Info) Description 08/30/2024 9:30 AM EDT [facility] Endocrinology [address] [place] [address] Greg Nina APRN.CHARGE ACCOUNT IDENTIFICATION CLERK [address] [place] [address] diabetes follow up with me in 3 months virtually 11/20/2024 1:00 PM EDT [facility] Endocrinology [address] [place] [address] Valdez Suarez MD [address] [place] [address] [address] [place], [place] 6170435 follow up in 6 months documented as of this encounter Visit Diagnoses Not on filedocumented in this encounter Care Teams Pattern Grader Cutter Relationship Specialty Start Date End Date Farhat Cabezas MD PCP - General Family Medicine 01/13/11 Farhat Cabezas MD Referring Family Medicine 01/08/22 Farhat Cabezas MD [address] [place] [address] Referring Family Medicine 07/26/24 documented as of this encounter
--- OUTSIDE RECORDS SUMMARY | 2024-08-17 13:15 | XMS_ITS | Encounter Summary ---
Demographics Address [address] [place] [address] Home Phone Mobile Phone Email Address Preferred Language ENG Marital Status Single Roman Catholic Affiliation Unknown Race White Ethnic Group Not or Lati no Author Organization [facility] Address [address] [place] [address] Care Team Providers Care Suit Attendant Name Role Phone Farhat Cabezas MD Primary Care Provider [phone] Farhat Cabezas MD Unavailable [phone] Farhat Cabezas MD Unavailable [phone] Source Comments In the event this information is protected by the Federal Confidentiality of Alcohol and Drug AbusePatient Records regulations: The Federal rules restrict any use of the information to criminally investigate or prosecute any alcohol or drug abuse patient.[facility] Encounter Details Date Type Department Care Team (Late st Contact Info) Description 02/05/2023 Patient Msg Endocrinology [address] [place] [address] [place] [address] [place], [place] [phone] Resources Social History Tobacco Use Types Packs/Day [...] lower risk 2 12/21/2022 Data from: https://www.neighborhoodatlas.medicine.[facility]/. Last address used for calculation [...] 08/30/2024 9:30 AM EDT [facility] Endocrinology [address] [place] [address] Greg Nina APRN.CURRICULUM DEVELOPER [address] [place], [place] 0103939 diabetes follow up with me in 3 months virtually 11/20/2024 1:00 PM EDT [facility] Endocrinology [address] [place] [address] Valdez Suarez MD [address] [place] [address] [address] [place], [place] 7568535 follow up in 6 months documented as of this encounter Visit Diagnoses Not on filedocumented in this encounter Care Teams Suit Attendant Relationship Specialty Start Date End Date Farhat Cabezas MD PCP - General Family Medicine 01/13/11 Farhat Cabezas MD Referring Family Medicine 01/08/22 [place] [address] [place] [address] Referring Family Medicine 07/26/24 documented as of this encounter
--- OUTSIDE RECORDS SUMMARY | 2024-08-17 13:15 | XMS_ITS | Encounter Summary ---
Demographics Address [address] [place] [address] Home Phone Mobile Phone Email Address Preferred Language ENG Marital Status Single Confucianism Affiliation Unknown Race White Ethnic Group Not or Lati no Author Organization [facility] Address [address] [place] [address] Care Team Providers Care Business Systems Lead Name Role Phone Farhat Cabezas MD Primary Care Provider [phone] Farhat Cabezas MD Unavailable [phone] Farhat Cabezas MD Unavailable [phone] Source Comments In the event this information is protected by the Federal Confidentiality of Alcohol and Drug AbusePatient Records regulations: The Federal rules restrict any use of the information to criminally investigate or prosecute any alcohol or drug abuse patient.[facility] Encounter Details Date Type Department Care Team (Late st Contact Info) Description 04/29/2023 Patient [facility] -[address] [place] [address] Renetta Moore RPh At your next appointment, choose [facility]. Social History Tobacco Use Types [...] is lower risk 2 12/21/2022 Data from: https://www.neighborhoodatlas.[facility]/. Last address used [...] 08/30/2024 9:30 AM EDT [facility]ocrinology [address] [place] [address] Greg Nina APRN.COSMETOLOGY EDUCATOR [address] [place], [place] 0329839 diabetes follow up with me in 3 months virtually 11/20/2024 1:00 PM EDT [facility] Endocrinology [address] [place] [address] Valdez Suarez MD [address] [place] [address] [address] [place], [place] 5516135 follow up in 6 months documented as of this encounter Visit Diagnoses Not on filedocumented in this encounter Care Teams Business Systems Lead Relationship Specialty Start Date End Date Farhat Cabezas MD PCP - General Family Medicine 01/13/11 Farhat Cabezas MD Referring Family Medicine 01/08/22 [place] [address] [place] [address] Referring Family Medicine 07/26/24 documented as of this encounter
--- OUTSIDE RECORDS SUMMARY | 2024-08-17 13:15 | XMS_ITS | Encounter Summary ---
Demographics Address [address] [facility] [place] [address] Home Phone Mobile Phone Email Address Preferred Language ENG Marital Status Single Mosque Affiliation Unknown Race White Ethnic Group Not or Lati no Author Organization [facility] Address [facility] [place] [place] [address] Care Team Providers Care Assistant Store Director Name Role Phone Farhat Cabezas MD Primary Care Provider [phone] Farhat Cabezas MD Unavailable [phone] Farhat Cabezas MD Unavailable Source Comments In the event this information is protected by the Federal Confidentiality of Alcohol and Drug AbusePatient Records regulations: The Federal rules restrict any use of the information to criminally investigate or prosecute any alcohol or drug abuse patient.[facility] Encounter Details Date Type Department Care Team (Late st Contact Info) Description 11/27/2022 Patient Msg Neurology 5334 [place] [address] Thaddeus Diggs MD 950 [place] [address] MRI Social History Tobacco Use Types [...] is lower risk 4 06/11/2022 Data from: https://www.neighborhoodatlas.medicine.[facility]/. Last address used for calculation [address] 06/11/2022 Comments No Sex and Gender [...] 08/30/2024 9:30 AM EDT [facility] Endocrinology [address] [place] [address] Greg Nina APRN.RETAIL COSMETICS SALES COUNTER MANAGER [address] [place] [address] diabetes follow up with me in 3 months virtually 11/20/2024 1:00 PM EDT [facility] Endocrinology [address] [place] [address] Valdez Suarez MD [address] [place] [address] [address] [place], [place] 1998135 follow up in 6 months documented as of this encounter Visit Diagnoses Not on filedocumented in this encounter Care Teams Assistant Store Director Relationship Specialty Start Date End Date Farhat Cabezas MD PCP - General Family Medicine 01/13/11 Farhat Cabezas MD Referring Family Medicine 01/08/22 Farhat Cabezas MD [address] [place] [address] Referring Family Medicine 07/26/24 documented as of this encounter
--- OUTSIDE RECORDS SUMMARY | 2024-08-17 13:15 | XMS_ITS | Encounter Summary ---
Demographics Address [address] [place] [address] Home Phone Mobile Phone Email Address Preferred Language ENG Marital Status Single Nondenominational Affiliation Unknown Race White Ethnic Group Not or Lati no Author Organization [facility] Address [address] [place] [address] Care Team Providers Care Radio Time Buyer Name Role Phone Farhat Cabezas MD Primary Care Provider [phone] Farhat Cabezas MD Unavailable [phone] Farhat Cabezas MD Unavailable [phone] Source Comments In the event this information is protected by the Federal Confidentiality of Alcohol and Drug AbusePatient Records regulations: The Federal rules restrict any use of the information to criminally investigate or prosecute any alcohol or drug abuse patient.[facility] Encounter Details Date Type Department Care Team (Late st Contact Info) Description 03/30/2023 Patient Msg Endocrinology [address] [place] [address] [place] [address] [place], [place] [phone] Following up Social History Tobacco Use Types [...] is lower risk 2 12/21/2022 Data from: https://www.neighborhoodatlas.medicine.[facility]/. Last address used for calculation [address] [...] Info) Description 08/30/2024 9:30 AM EDT [facility] Endocrinology [address] [place] [address] Greg Nina APRN.AIRCRAFT LAY OUT WORKER [address] [place] [address] diabetes follow up with me in 3 months virtually 11/20/2024 1:00 PM EDT [facility] Endocrinology [address] [place] [address] Valdez Suarez MD [address] [place] [address] [address] [place], [place] 2712935 follow up in 6 months documented as of this encounter Visit Diagnoses Not on filedocumented in this encounter Care Teams Radio Time Buyer Relationship Specialty Start Date End Date Farhat Cabezas MD PCP - General Family Medicine 01/13/11 Farhat Cabezas MD Referring Family Medicine 01/08/22 [place] [address] [place] [address] Referring Family Medicine 07/26/24 documented as of this encounter
--- OUTSIDE RECORDS SUMMARY | 2024-08-17 13:15 | XMS_ITS | Clinical Summary ---
Author Organization [facility] Address [address] [place] [address] Care Team Providers Care General Operations Agent Name Role Phone Farhat Cabezas MD Primary Care Provider [phone] Allergies Active Allergy Reactions Criticality Noted Date [...] Plan of Treatment Not on file Insurance [facility] Care Teams General Operations Agent Relationship Specialty Start Date End Date Farhat Cabezas MD PCP - General Family Medicine 07/07/23
--- OUTSIDE RECORDS SUMMARY | 2024-08-17 13:15 | XMS_ITS | Encounter Summary ---
Demographics Address [address] [facility] [place] [address] Home Phone Mobile Phone Email Address Preferred Language ENG Marital Status Single Jehovah'S Witness Affiliation Unknown Race White Ethnic Group Not or Lati no Author Organization [facility] Address [address] [place] [address] Care Team Providers Care Risk Control Representative Name Role Phone Farhat Cabezas MD Primary Care Provider [phone] Farhat Cabezas MD Unavailable [phone] Farhat Cabezas MD Unavailable [phone] Source Comments In the event this information is protected by the Federal Confidentiality of Alcohol and Drug AbusePatient Records regulations: The Federal rules restrict any use of the information to criminally investigate or prosecute any alcohol or drug abuse patient.[facility] Encounter Details Date Type Department Care Team (Late st Contact Info) Description 04/14/2023 Get Medical Advice Gastroenterology [address] [address] Adilene Morgan APRN.[facility] 9500 [place] [address] ABD PAIN, VOMITTING / OBSTRUCTION? Social History [...] is lower risk 2 12/21/2022 Data from: https://www.neighborhoodatlas.medicine.[facility]/. Last address used for [...] Contact Info) Description 08/30/2024 9:30 AM EDT [facility] Endocrinology [address] [place] [address] Greg Nina, MARITZA.AGRONOMY LOCATION MANAGER [address] [place] [address] diabetes follow up with me in 3 months virtually 11/20/2024 1:00 PM EDT [facility] Endocrinology [address] [place] [address] Valdez Suarez MD [address] [place] [address] [place] [address] follow up in 6 months documented as of this encounter Visit Diagnoses Not on filedocumented in this encounter Care Teams Risk Control Representative Relationship Specialty Start Date End Date Farhat Cabezas MD PCP - General Family Medicine 01/13/11 Farhat Cabezas MD Referring Family Medicine 01/08/22 Farhat Cabezas MD [address] [place] [address] Referring Family Medicine 07/26/24 documented as of this encounter
--- OUTSIDE RECORDS SUMMARY | 2024-08-17 13:15 | XMS_ITS | Encounter Summary ---
Demographics Address [address] [facility] [place] [address] Home Phone Mobile Phone Email Address Preferred Language ENG Marital Status Single Catholic Affiliation Unknown Race White Ethnic Group Not or Lati no Author Organization [facility] Address [address] [place] [address] Care Team Providers Care Radiological Engineer Name Role Phone Farhat Cabezas MD Primary Care Provider [phone] Farhat Cabezas MD Unavailable [phone] Farhat Cabezas MD Unavailable [phone] Source Comments In the event this information is protected by the Federal Confidentiality of Alcohol and Drug AbusePatient Records regulations: The Federal rules restrict any use of the information to criminally investigate or prosecute any alcohol or drug abuse patient.[facility] Encounter Details Date Type Department Care Team (Late st Contact Info) Description 04/09/2023 Patient Msg Endocrinology [address] [place] [address] Vinicius Márquez, MANAGER LICENSING.WIND INSTRUMENT REPAIRER [address] [place] [address] Appointment Request Social History Tobacco Use Types [...] is lower risk 2 12/21/2022 Data from: https://www.neighborhoodatlas.medicine.[facility]/. Last address used for [...] Info) Description 08/30/2024 9:30 AM EDT [facility] Endocrinology [address] [place] [address] Greg Nina APRN.WIND INSTRUMENT REPAIRER [address] [place] [address] diabetes follow up with me in 3 months virtually 11/20/2024 1:00 PM EDT [facility] Endocrinology [address] [place] [address] Valdez Suarez MD [address] [place] [address] [address] [place], [place] 5893435 follow up in 6 months documented as of this encounter Visit Diagnoses Not on filedocumented in this encounter Care Teams Radiological Engineer Relationship Specialty Start Date End Date Farhat Cabezas MD PCP - General Family Medicine 01/13/11 Farhat Cabezas MD Referring Family Medicine 01/08/22 Frahat Cabezas MD [address]65 [place] [address] Referring Family Medicine 07/26/24 documented as of this encounter
--- OUTSIDE RECORDS SUMMARY | 2024-08-17 13:15 | XMS_ITS | Encounter Summary ---
Demographics Address [address] [place] [address] Home Phone Mobile Phone Email Address Preferred Language ENG Marital Status Single Druze Affiliation Unknown Race White Ethnic Group Not or Lati no Author Organization [facility] Address [address] [place] [address] Care Team Providers Care Automotive Dismantler Name Role Phone Farhat Cabezas MD Primary Care Provider [phone] Farhat Cabezas MD Unavailable [phone] Farhat Cabezas MD Unavailable [phone] Source Comments In the event this information is protected by the Federal Confidentiality of Alcohol and Drug AbusePatient Records regulations: The Federal rules restrict any use of the information to criminally investigate or prosecute any alcohol or drug abuse patient.[facility] Encounter Details Date Type Department Care Team (Late st Contact Info) Description 04/26/2023 Patient Msg Endocrinology [address] [place] [address] [place] [address] [place] [address] Board Complaint Filed Social History Tobacco Use [...] is lower risk 2 12/21/2022 Data from: https://www.neighborhoodatlas.medicine.[facility]/. Last address used for calculation [address] [...] Contact Info) Description 08/30/2024 9:30 AM EDT [facility] Endocrinology [address] [place] [address] Greg Nina APRN.DOCUMENT REVIEW SPECIALIST [address] [place] [address] diabetes follow up with me in 3 months virtually 11/20/2024 1:00 PM EDT [facility] Endocrinology [address] [place] [address] Valdez Suarez MD [address] [place] [address] [place], [place] 8229335 follow up in 6 months documented as of this encounter Visit Diagnoses Not on filedocumented in this encounter Care Teams Automotive Dismantler Relationship Specialty Start Date End Date Farhat Cabezas MD PCP - General Family Medicine 01/13/11 Farhat Cabezas MD Referring Family Medicine 01/08/22 Farhat Cabezas MD [address] [place] [address] Referring Family Medicine 07/26/24 documented as of this encounter
--- OUTSIDE RECORDS SUMMARY | 2024-08-17 13:15 | XMS_ITS | Encounter Summary ---
Demographics Address [address] [place] [address] Home Phone Mobile Phone Email Address Preferred Language ENG Marital Status Single Restorationism Affiliation Unknown Race White Ethnic Group Not or Lati no Author Organization [facility] Address [address] [place] [address] Care Team Providers Care Radiagraph Operator Name Role Phone Farhat Cabezas MD Primary Care Provider [phone] Farhat Cabezas MD Unavailable [phone] Farhat Cabezas MD Unavailable [phone] Source Comments In the event this information is protected by the Federal Confidentiality of Alcohol and Drug AbusePatient Records regulations: The Federal rules restrict any use of the information to criminally investigate or prosecute any alcohol or drug abuse patient.[facility] Encounter Details Date Type Department Care Team (Late st Contact Info) Description 04/19/2023 Patient Msg Orthopaedics [address] [place], [place] [phone] Provider, Ccpiero Saba Appointment Social History Tobacco [...] risk 2 12/21/2022 Data from: https://www.neighborhoodatlas.[facility]/. Last address used for calculation [...] Contact Info) Description 08/30/2024 9:30 AM EDT [facility] Endocrinology [address] [place] [address] Greg Nina APRN.CREW TRUCK DRIVER [address] [place] [address] diabetes follow up with me in 3 months virtually 11/20/2024 1:00 PM EDT [facility] Endocrinology [address] [place] [address] Valdez Suarez MD [address] [place] [address] [address] [place], [place] 8523735 follow up in 6 months documented as of this encounter Visit Diagnoses Not on filedocumented in this encounter Care Teams Radiagraph Operator Relationship Specialty Start Date End Date Farhat Cabezas MD PCP - General Family Medicine 01/13/11 Farhat Cabezas MD Referring Family Medicine 01/08/22 Farhat Cabezas MD [address] [place] [address] Referring Family Medicine 07/26/24 documented as of this encounter
--- OUTSIDE RECORDS SUMMARY | 2024-08-17 13:15 | XMS_ITS | Encounter Summary ---
Demographics Address [address] [facility] [place] [address] Home Phone Mobile Phone Email Address Preferred Language ENG Marital Status Single Religion Affiliation Unknown Race White Ethnic Group Not or Lati no Author Organization [facility] Address [facility] [place] [address] Care Team Providers Care Menagerie Superintendent Name Role Phone Farhat Cabezas MD Primary Care Provider [phone] Farhat Cabezas MD Unavailable [phone] Farhat Cabezas MD Unavailable [phone] Source Comments In the event this information is protected by the Federal Confidentiality of Alcohol and Drug AbusePatient Records regulations: The Federal rules restrict any use of the information to criminally investigate or prosecute any alcohol or drug abuse patient.[facility] Encounter Details Date Type Department Care Team (Late st Contact Info) Description 11/17/2022 Get Medical Advice Neurology 5334 [place] [address] Thaddeus Diggs MD 7275 [place] [address] Neck/ Neuro / symptoms Social [...] is lower risk 4 06/11/2022 Data from: https://www.neighborhoodatlas.medicine.[facility]/. Last address used for calculation [address] 06/11/2022 Comments No Sex and Gender [...] Contact Info) Description 08/30/2024 9:30 AM EDT [facility] Endocrinology [address] [place] [address] Greg Nina, MARITZA.GEOPHYSICIST [address] [place] [address] diabetes follow up with me in 3 months virtually 11/20/2024 1:00 PM EDT [facility] Endocrinology [address] [place] [address] Valdez Suarez MD [address] [place] [address] [place] [address] follow up in 6 months documented as of this encounter Visit Diagnoses Not on filedocumented in this encounter Care Teams Menagerie Superintendent Relationship Specialty Start Date End Date Farhat Cabezas MD PCP - General Family Medicine 01/13/11 Farhat Cabezas MD Referring Family Medicine 01/08/22 Farhat Cabezas MD [address] [place] [address] Referring Family Medicine 07/26/24 documented as of this encounter
--- OUTSIDE RECORDS SUMMARY | 2024-08-17 13:15 | XMS_ITS | Encounter Summary ---
Demographics Address [address] [facility] [place] [address] Home Phone Mobile Phone Email Address Preferred Language ENG Marital Status Single Anglican Affiliation Unknown Race White Ethnic Group Not or Lati no Author Organization [facility] Address [facility] [place] [address] Care Team Providers Care Nuclear Equipment Operator Name Role Phone Farhat Cabezas MD Primary Care Provider [phone] Farhat Cabezas MD Unavailable [phone] Farhat Cabezas MD Unavailable [phone] Source Comments In the event this information is protected by the Federal Confidentiality of Alcohol and Drug AbusePatient Records regulations: The Federal rules restrict any use of the information to criminally investigate or prosecute any alcohol or drug abuse patient.[facility] Encounter Details Date Type Department Care Team (Late st Contact Info) Description 02/08/2023 Get Medical Advice Neurology 5334 [place] [address] Thaddeus Diggs MD [address] [place] [address] Desperate for answer Social History [...] is lower risk 2 12/21/2022 Data from: https://www.neighborhoodatlas.medicine.[facility]/. Last address used for calculation [...] 08/30/2024 9:30 AM EDT [facility] Endocrinology [address] [place] [address] Greg Nina, MARITZA.VP OF PRODUCT [address] [place], [place] 128[address]39 diabetes follow up with me in 3 months virtually 11/20/2024 1:00 PM EDT [facility] Endocrinology [address] [place] [address] Valdez Suarez MD [address] [place] [address] [address] [place], [place] [address] follow up in 6 months documented as of this encounter Visit Diagnoses Not on filedocumented in this encounter Care Teams Nuclear Equipment Operator Relationship Specialty Start Date End Date Farhat Cabezas MD PCP - General Family Medicine 01/13/11 Farhat Cabezas MD Referring Family Medicine 01/08/22 Farhat Cabezas MD [address] [place] [address] Referring Family Medicine 07/26/24 documented as of this encounter
--- OUTSIDE RECORDS SUMMARY | 2024-08-17 13:15 | XMS_ITS | Encounter Summary ---
Demographics Address [address] [place] [address] Home Phone Mobile Phone Email Address Preferred Language ENG Marital Status Single Zoroastrian Affiliation Unknown Race White Ethnic Group Not or Lati no Author Organization [facility] Address [address] [place] [address] Care Team Providers Care Screw Machine Setter Name Role Phone Farhat Cabezas MD Primary Care Provider [phone] Farhat Cabezas MD Unavailable [phone] Farhat Cabezas MD Unavailable [phone] Source Comments In the event this information is protected by the Federal Confidentiality of Alcohol and Drug AbusePatient Records regulations: The Federal rules restrict any use of the information to criminally investigate or prosecute any alcohol or drug abuse patient.[facility] Encounter Details Date Type Department Care Team (Late st Contact Info) Description 04/21/2023 Patient Msg Endocrinology [address] [place] [address] [place] [address] [place] [address] Report Next Steps Social History Tobacco Use [...] is lower risk 2 12/21/2022 Data from: https://www.neighborhoodatlas.medicine.[facility]/. Last address used for calculation [address] [...] Contact Info) Description 08/30/2024 9:30 AM EDT [facility] Endocrinology [address] [place] [address] Greg Nina APRN.FINANCIAL ANALYST ACCOUNTANT [address] [place] [address] diabetes follow up with me in 3 months virtually 11/20/2024 1:00 PM EDT [facility] Endocrinology [address] [place] [address] Valdez Suarez MD [address] [place] [address] [address] [place], [place] 7965135 follow up in 6 months documented as of this encounter Visit Diagnoses Not on filedocumented in this encounter Care Teams Screw Machine Setter Relationship Specialty Start Date End Date Farhat Cabezas MD PCP - General Family Medicine 01/13/11 Farhat Cabezas MD Referring Family Medicine 01/08/22 Farhat Cabezas MD 1265 [place] [address] Referring Family Medicine 07/26/24 documented as of this encounter
--- OUTSIDE RECORDS SUMMARY | 2024-08-17 13:15 | XMS_ITS ---
Author Organization [facility] Address [address] [place] [address] Care Team Providers Care Production Cook Name Role Phone Farhat Cabezas MD Primary Care Provider [phone] Farhat Cabezas MD Unavailable [phone] Farhat Cabezas MD Unavailable [phone] Active Problems * This document contains [...] (09/24/2017): Added automatically from request for surgery [id number] Vomiting of fecal matter with nausea 09/24/2017 Overview (09/24/2017): Added automatically from request for surgery [id number] Postoperative malabsorption 03/04/2017 Pneumonia 12/06/2016 Nausea and [...] (08/31/2016): Added automatically from request for surgery [id number] Hernia, paraesophageal 08/31/201612/01 Overview (08/31/2016): Added automatically from request for surgery [id number] Mitral and aortic valve regurgitation 09/08/2009 10/23/2022 Overview (10/08/2017): Aortic insufficiency EF 60% DR Zuniga -- judged to be non-surgical and mild
--- OUTSIDE RECORDS SUMMARY | 2024-08-17 13:15 | XMS_ITS | Encounter Summary ---
Demographics Address [address] [place] [address] Home Phone Mobile Phone Email Address Preferred Language ENG Marital Status Single Lutheran Affiliation Unknown Race White Ethnic Group Not or Lati no Author Organization [facility] Address [address] [place] [address] Care Team Providers Care Evaporator Helper Name Role Phone Farhat Cabezas MD Primary Care Provider [phone] Farhat Cabezas MD Unavailable [phone] Farhat Cabezas MD Unavailable [phone] Source Comments In the event this information is protected by the Federal Confidentiality of Alcohol and Drug AbusePatient Records regulations: The Federal rules restrict any use of the information to criminally investigate or prosecute any alcohol or drug abuse patient.[facility] Encounter Details Date Type Department Care Team (Late st Contact Info) Description 04/09/2023 Patient Msg Pain Management 57[address] [place] [address] [place] [address] [facility] [address] [place] [address] Appointment Request Social History Tobacco [...] 12/21/2022 Data from: https://www.neighborhoodatlas.medicine.[facility]/. Last address used for calculation [address] 12/21/2022 Comments No Sex and [...] Contact Info) Description 08/30/2024 9:30 AM EDT [facility] Endocrinology [address] [place] [address] Greg Nina APRN.FRAMING MANAGER [address] [place] [address] diabetes follow up with me in 3 months virtually 11/20/2024 1:00 PM EDT [facility] Endocrinology [address] [place] [address] Valdez Suarez MD [address] [place] [address] [address] [place], [place] 7379135 follow up in 6 months documented as of this encounter Visit Diagnoses Not on filedocumented in this encounter Care Teams Evaporator Helper Relationship Specialty Start Date End Date Farhat Cabezas MD PCP - General Family Medicine 01/13/11 Farhat Cabezas MD Referring Family Medicine 01/08/22 [place] [address] [place] [address] Referring Family Medicine 07/26/24 documented as of this encounter
--- OUTSIDE RECORDS SUMMARY | 2024-08-17 13:15 | XMS_ITS | Encounter Summary ---
Demographics Address [address] [facility] [place] [address] Home Phone Mobile Phone Email Address Preferred Language ENG Marital Status Single Islam Affiliation Unknown Race White Ethnic Group Not or Lati no Author Organization [facility] Address [address] [place] [address] Care Team Providers Care Dock Manager Name Role Phone Farhat Cabezas MD Primary Care Provider [phone] Farhat Cabezas MD Unavailable [phone] Farhat Cabezas MD Unavailable [phone] Source Comments In the event this information is protected by the Federal Confidentiality of Alcohol and Drug AbusePatient Records regulations: The Federal rules restrict any use of the information to criminally investigate or prosecute any alcohol or drug abuse patient.[facility] Encounter Details Date Type Department Care Team (Late st Contact Info) Description 04/15/2023 Patient Msg Gastroenterology [address] [address] Adilene Morgan APRN.[facility] [address] [place] [address] Follow up control technician Social History Tobacco Use Types Packs/Day Years [...] is lower risk 2 12/21/2022 Data from: https://www.neighborhoodatlas.medicine.[facility]/. Last address used for calculation [address] [...] Contact Info) Description 08/30/2024 9:30 AM EDT [facility] Endocrinology [address] [place] [address] Greg Nina APRN.FIRE FIGHTERS DISPATCHER [address] [place] [address] diabetes follow up with me in 3 months virtually 11/20/2024 1:00 PM EDT [facility] Endocrinology [address] [place] [address] Valdez Suarez MD [address] [place] [address] [address] [place], [place] [address] follow up in 6 months documented as of this encounter Visit Diagnoses Not on filedocumented in this encounter Care Teams Dock Manager Relationship Specialty Start Date End Date Farhat Cabezas MD PCP - General Family Medicine 01/13/11 Farhat Cabezas MD Referring Family Medicine 01/08/22 Farhat Cabezas MD [address] [place] [address] Referring Family Medicine 07/26/24 documented as of this encounter
--- OUTSIDE RECORDS SUMMARY | 2024-08-17 13:15 | XMS_ITS | Encounter Summary ---
Demographics Address [address] [place] [address] Home Phone Mobile Phone Email Address Preferred Language ENG Marital Status Single Spiritism Affiliation Unknown Race White Ethnic Group Not or Lati no Author Organization [facility] Address [address] [place] [address] Care Team Providers Care Secretary Specialist Name Role Phone Farhat Cabezas MD Primary Care Provider [phone] Farhat Cabezas MD Unavailable [phone] Farhat Cabezas MD Unavailable [phone] Source Comments In the event this information is protected by the Federal Confidentiality of Alcohol and Drug AbusePatient Records regulations: The Federal rules restrict any use of the information to criminally investigate or prosecute any alcohol or drug abuse patient.[facility] Encounter Details Date Type Department Care Team (Late st Contact Info) Description 03/16/2023 Patient Msg Endocrinology [address] [place] [address] [place] [address]SW [address] [place] [address] Following up Social History Tobacco Use Types [...] Data from: https://www.neighborhoodatlas.medicine.[facility]/. Last address used for calculation [...] Contact Info) Description 08/30/2024 9:30 AM EDT [facility] Endocrinology [address] [place] [address] Greg Nina APRN.WALL SCRAPER [address] [place] [address] diabetes follow up with me in 3 months virtually 11/20/2024 1:00 PM EDT [facility] Endocrinology [address] [place] [address] Valdez Suarez MD [address] [place] [address] [address] [place], [place] 577[address] follow up in 6 months documented as of this encounter Visit Diagnoses Not on filedocumented in this encounter Care Teams Secretary Specialist Relationship Specialty Start Date End Date Farhat Cabezas MD PCP - General Family Medicine 01/13/11 Farhat Cabezas MD Referring Family Medicine 01/08/22 [place] [address] [place] [address] Referring Family Medicine 07/26/24 documented as of this encounter
--- OUTSIDE RECORDS SUMMARY | 2024-08-17 13:15 | XMS_ITS | Encounter Summary ---
Demographics Address [address] [place] [address] Home Phone Mobile Phone Email Address Preferred Language ENG Marital Status Single Anabaptism Affiliation Unknown Race White Ethnic Group Not or Lati no Author Organization [facility] Address [address] [place] [address] Care Team Providers Care Finger Cobbler Name Role Phone Farhat Cabezas MD Primary Care Provider [phone] Farhat Cabezas MD Unavailable [phone] Farhat Cabezas MD Unavailable [phone] Source Comments In the event this information is protected by the Federal Confidentiality of Alcohol and Drug AbusePatient Records regulations: The Federal rules restrict any use of the information to criminally investigate or prosecute any alcohol or drug abuse patient.[facility] Encounter Details Date Type Department Care Team (Late st Contact Info) Description 02/12/2023 Patient Msg Endocrinology [address] [place] [address] [place] [address] [address] [place] [address] Crisis Lifeline Social History Tobacco Use Types [...] is lower risk 2 12/21/2022 Data from: https://www.neighborhoodatlas.medicine.[facility]/. Last address used for calculation [address] [...] Contact Info) Description 08/30/2024 9:30 AM EDT [facility] Endocrinology [address] [place] [address] Greg Nina APRN.KETTLE WORKER [address] [place] [address] diabetes follow up with me in 3 months virtually 11/20/2024 1:00 PM EDT [facility] Endocrinology [address] [place] [address] Vadlez Suarez MD [address] [place] [address] [place], [place] 51208[address] follow up in 6 months documented as of this encounter Visit Diagnoses Not on filedocumented in this encounter Care Teams Finger Cobbler Relationship Specialty Start Date End Date Farhat Cabezas MD PCP - General Family Medicine 01/13/11 Farhat Cabezas MD Referring Family Medicine 01/08/22 Farhat Cabezas MD [address] [place] [address] Referring Family Medicine 07/26/24 documented as of this encounter
--- OUTSIDE RECORDS SUMMARY | 2024-08-17 13:15 | XMS_ITS | Encounter Summary ---
Demographics Address [address] [facility] [place] [address] Home Phone Mobile Phone Email Address Preferred Language ENG Marital Status Single Gnosticism Affiliation Unknown Race White Ethnic Group Not or Lati no Author Organization [facility] Address [facility] [place] [address] Care Team Providers Care Renewals Manager Name Role Phone Farhat Cabezas MD Primary Care Provider [phone] Farhat Cabezas MD Unavailable [phone] Farhat Cabezas MD Unavailable [phone] Source Comments In the event this information is protected by the Federal Confidentiality of Alcohol and Drug AbusePatient Records regulations: The Federal rules restrict any use of the information to criminally investigate or prosecute any alcohol or drug abuse patient.[facility] Encounter Details Date Type Department Care Team (Late st Contact Info) Description 01/28/2023 Get Medical Advice Neurology 5334 [place] [address] Thaddeus Diggs MD 0620 [place] [address] Continuing issues Social History Tobacco [...] is lower risk 2 12/21/2022 Data from: https://www.neighborhoodatlas.medicine.[facility]/. Last address used for calculation [address] [...] AM EDT [facility] Endocrinology [address] [place] [address] Greg Nina, MARITZA.MILLING MACHINE TENDER [address] [place] [address] diabetes follow up with me in 3 months virtually 11/20/2024 1:00 PM EDT [facility] Endocrinology [address] [place] [address] Valdez Suarez MD [address] [place] [address] [place], [place] 285[address] follow up in 6 months documented as of this encounter Visit Diagnoses Not on filedocumented in this encounter Care Teams Renewals Manager Relationship Specialty Start Date End Date Farhat Cabezas MD PCP - General Family Medicine 01/13/11 Farhat Cabezas MD Referring Family Medicine 01/08/22 [place] [address] [place] [address] Referring Family Medicine 07/26/24 documented as of this encounter
--- OUTSIDE RECORDS SUMMARY | 2024-08-17 13:15 | XMS_ITS | Encounter Summary ---
Demographics Address [address] [place] [address] Home Phone Mobile Phone Email Address Preferred Language ENG Marital Status Single Anabaptism Affiliation Unknown Race White Ethnic Group Not or Lati no Author Organization [facility] Address [address] [place] [address] Care Team Providers Care Renal Medicine Specialist Name Role Phone Farhat Cabezas MD Primary Care Provider [phone] Farhat Cabezas MD Unavailable [phone] Farhat Cabezas MD Unavailable [phone] Source Comments In the event this information is protected by the Federal Confidentiality of Alcohol and Drug AbusePatient Records regulations: The Federal rules restrict any use of the information to criminally investigate or prosecute any alcohol or drug abuse patient.[facility] Encounter Details Date Type Department Care Team (Late st Contact Info) Description 04/05/2023 Patient Msg Endocrinology [address] [place] [address] Provider, Ccf endocrine dietitian visit rescheduled Social [...] lower risk 2 12/21/2022 Data from: https://www.neighborhoodatlas.[facility]/. Last address used for [...] EDT [facility] Endocrinology [address] [place] [phone] Greg Nina APRN.GARDENING SUPERVISOR [address] [place] [address] diabetes follow up with me in 3 months virtually 11/20/2024 1:00 PM EDT [facility] [address] [place] [address] Valdez Suarez MD [address] [place] [address] [address] [place], [place] [phone] follow up in 6 months documented as of this encounter Visit Diagnoses Not on filedocumented in this encounter Care Teams Renal Medicine Specialist Relationship Specialty Start Date End Date Farhat Cabezas MD PCP - General Family Medicine 01/13/11 Farhat Cabezas MD Referring Family Medicine 01/08/22 Farhat Cabezas MD [address] [place] [address] Referring Family Medicine 07/26/24 documented as of this encounter
--- OUTSIDE RECORDS SUMMARY | 2024-08-17 13:15 | XMS_ITS | Encounter Summary ---
Demographics Address [address] [place] [address] Home Phone Mobile Phone Email Address Preferred Language ENG Marital Status Single Oriental Orthodox Affiliation Unknown Race White Ethnic Group Not or Lati no Author Organization [facility] Address [address] [place] [address] Care Team Providers Care Skin Care Therapist Name Role Phone Farhat Cabezas MD Primary Care Provider [phone] Farhat Cabezas MD Unavailable [phone] Farhat Cabezas MD Unavailable [phone] Source Comments In the event this information is protected by the Federal Confidentiality of Alcohol and Drug AbusePatient Records regulations: The Federal rules restrict any use of the information to criminally investigate or prosecute any alcohol or drug abuse patient.[facility] Encounter Details Date Type Department Care Team (Late st Contact Info) Description 04/16/2023 Patient Msg Edwin Preciado [facility] Physical Therapy [address] [place], [place] [phone] [place] [address] [place], [place] [phone] Appointment Request Social History Tobacco Use Types [...] risk 2 12/21/2022 Data from: https://www.neighborhoodatlas.medicine.[facility]/. Last address used [...] Contact Info) Description 08/30/2024 9:30 AM EDT [facility] Endocrinology [address] [place] [phone] Greg Nina APRN.TECHNICAL SUPPORT PROFESSIONAL [address] [place], [place] [phone] diabetes follow up with me in 3 months virtually 11/20/2024 1:00 PM EDT [facility] Endocrinology [address] [place] [address] Valdez Suarez MD [address] [place] [address] [address] [place], [place] [phone] follow up in 6 months documented as of this encounter Visit Diagnoses Not on filedocumented in this encounter Care Teams Skin Care Therapist Relationship Specialty Start Date End Date Farhat Cabezas MD PCP - General Family Medicine 01/13/11 Farhat Cabezas MD Referring Family Medicine 01/08/22 Farhat Cabezas MD [address] [place] [address] Referring Family Medicine 07/26/24 documented as of this encounter
--- OUTSIDE RECORDS SUMMARY | 2024-08-17 13:15 | XMS_ITS | Encounter Summary ---
Demographics Address [address] [place] [address] Home Phone Mobile Phone Email Address Preferred Language ENG Marital Status Single Shinto Affiliation Unknown Race White Ethnic Group Not or Lati no Author Organization [facility] Address [address] [place] [address] Care Team Providers Care Clipper Machine Name Role Phone Farhat Cabezas MD Primary Care Provider [phone] Farhat Cabezas MD Unavailable [phone] Farhat Cabezas MD Unavailable [phone] Source Comments In the event this information is protected by the Federal Confidentiality of Alcohol and Drug AbusePatient Records regulations: The Federal rules restrict any use of the information to criminally investigate or prosecute any alcohol or drug abuse patient.[facility] Encounter Details Date Type Department Care Team (Late st Contact Info) Description 02/19/2023 Patient Msg Endocrinology [address] [place] [address] [place] [address] [place] [address] Financial Resources Social History Tobacco Use Types [...] Data from: https://www.neighborhoodatlas.medicine.[facility]/. Last address used for calculation [address] [...] Contact Info) Description 08/30/2024 9:30 AM EDT [facility] [address] [place] [phone] Greg Nina APRN.NAVIGATING OFFICER [address] [place] [address] diabetes follow up with me in 3 months virtually 11/20/2024 1:00 PM EDT [facility] [address] [place] [address] Valdez Suarez MD [address] [place] [address] [address] [place], [place] [phone] follow up in 6 months documented as of this encounter Visit Diagnoses Not on filedocumented in this encounter Care Teams Clipper Machine Relationship Specialty Start Date End Date Farhat Cabezas MD PCP - General Family Medicine 01/13/11 Farhat Cabezas MD Referring Family Medicine 01/08/22 [place] [address] [place] [address] Referring Family Medicine 07/26/24 documented as of this encounter
--- OUTSIDE RECORDS SUMMARY | 2024-08-17 13:15 | XMS_ITS | Encounter Summary ---
Demographics Address [address] [place] [address] Home Phone Mobile Phone Email Address Preferred Language ENG Marital Status Single Faith Affiliation Unknown Race White Ethnic Group Not or Lati no Author Organization [facility] Address [address] [place] [address] Care Team Providers Care Computerized Mill Recorder Name Role Phone Farhat Cabezas MD Primary Care Provider [phone] Farhat Cabezas MD Unavailable [phone] Farhat Cabezas MD Unavailable [phone] Source Comments In the event this information is protected by the Federal Confidentiality of Alcohol and Drug AbusePatient Records regulations: The Federal rules restrict any use of the information to criminally investigate or prosecute any alcohol or drug abuse patient.[facility] Encounter Details Date Type Department Care Team (Late st Contact Info) Description 04/26/2023 GI Preprocedure Call Gastroenterology [address] [phone] Shania Sotomayor LPN Social History Tobacco Use [...] lower risk 2 12/21/2022 Data from: https://www.neighborhoodatlas.[facility]/. Last address used for calculation [address] [...] Contact Info) Description 08/30/2024 9:30 AM EDT [facility] Endocrinology [address] [place] [phone] Greg Nina APRN.QUARRY EQUIPMENT OPERATOR [address] [place] [address] diabetes follow up with me in 3 months virtually 11/20/2024 1:00 PM EDT [facility] [address] [place] [address] Valdez Suarez MD [address] [place] [address] [address] [place], [place] [phone] follow up in 6 months documented as of this encounter Visit Diagnoses Not on filedocumented in this encounter Care Teams Computerized Mill Recorder Relationship Specialty Start Date End Date Farhat Cabezas MD PCP - General Family Medicine 01/13/11 Farhat Cabezas MD Referring Family Medicine 01/08/22 Farhat Cabezas MD [address] [place] [address] Referring Family Medicine 07/26/24 documented as of this encounter
--- OUTSIDE RECORDS SUMMARY | 2024-08-17 13:15 | XMS_ITS | Encounter Summary ---
Demographics Address [address] [place] [address] Home Phone Mobile Phone Email Address Preferred Language ENG Marital Status Single Mormonism Affiliation Unknown Race White Ethnic Group Not or Lati no Author Organization [facility] Address [address] [place] [address] Care Team Providers Care Associate Director Qa Name Role Phone Farhat Cabezas MD Primary Care Provider [phone] Farhat Cabezas MD Unavailable [phone] Farhat Cabezas MD Unavailable [phone] Source Comments In the event this information is protected by the Federal Confidentiality of Alcohol and Drug AbusePatient Records regulations: The Federal rules restrict any use of the information to criminally investigate or prosecute any alcohol or drug abuse patient.[facility] Encounter Details Date Type Department Care Team (Late st Contact Info) Description 03/26/2023 Patient Msg Endocrinology [address] [place] [address] [place] [address] [place] [address] Draft Narrative Social History Tobacco Use Types [...] 2 12/21/2022 Data from: https://www.neighborhoodatlas.medicine.[facility]/. Last address used for calculation [address] [...] Description 08/30/2024 9:30 AM EDT [facility] Endocrinology [address] [place] [phone] Greg Nina APRN.APPLE SORTER [address] [place] [address] diabetes follow up with me in 3 months virtually 11/20/2024 1:00 PM EDT [facility] Endocrinology [address] [place] [address] Valdez Suarez MD [address] [place] [address] [address] [place], [place] [phone] follow up in 6 months documented as of this encounter Visit Diagnoses Not on filedocumented in this encounter Care Teams Associate Director Qa Relationship Specialty Start Date End Date Farhat Cabezas MD PCP - General Family Medicine 01/13/11 Farhat Cabezas MD Referring Family Medicine 01/08/22 [place] [address] [place] [address] Referring Family Medicine 07/26/24 documented as of this encounter
--- OUTSIDE RECORDS SUMMARY | 2024-08-17 13:15 | XMS_ITS | Encounter Summary ---
Demographics Address [address] [place] [address] Home Phone Mobile Phone Email Address Preferred Language ENG Marital Status Single Evangelical Affiliation Unknown Race White Ethnic Group Not or Lati no Author Organization [facility] Address [address] [place] [address] Care Team Providers Care Dining Room Hostess Name Role Phone Farhat Cabezas MD Primary Care Provider [phone] Farhat Cabezas MD Unavailable [phone] Farhat Cabezas MD Unavailable [phone] Source Comments In the event this information is protected by the Federal Confidentiality of Alcohol and Drug AbusePatient Records regulations: The Federal rules restrict any use of the information to criminally investigate or prosecute any alcohol or drug abuse patient.[facility] Encounter Details Date Type Department Care Team (Late st Contact Info) Description 03/24/2023 Patient Msg Endocrinology [address] [place] [address] [place] [address] [place] [address] Resouces Social History Tobacco Use Types Packs/Day [...] is lower risk 2 12/21/2022 Data from: https://www.neighborhoodatlas.medicine.[facility]/. Last address used for calculation [address] [...] EDT [facility] Endocrinology [address] [place] [phone] Greg Nina APRN.DURALUMIN METALWORKER [address] [place] [address] diabetes follow up with me in 3 months virtually 11/20/2024 1:00 PM EDT [facility] Endocrinology [address] [place] [address] Valdez Suarez MD [address] [place] [address] [address] [place], [place] [phone] follow up in 6 months documented as of this encounter Visit Diagnoses Not on filedocumented in this encounter Care Teams Dining Room Hostess Relationship Specialty Start Date End Date Farhat Cabezas MD PCP - General Family Medicine 01/13/11 Farhat Cabezas MD Referring Family Medicine 01/08/22 Farhat Cabezas MD [address] [place] [address] Referring Family Medicine 07/26/24 documented as of this encounter
--- OUTSIDE RECORDS SUMMARY | 2024-08-17 13:15 | XMS_ITS | Clinical Summary ---
Author Organization [facility] Address [address] [place] [address] Care Team Providers Care Business Development Coordinator Name Role Phone Farhat Cabezas MD Primary Care Provider [phone] Farhat Cabezas MD Unavailable [phone] Farhat Cabezas MD Unavailable [phone] Allergies Active Allergy Reactions Criticality Noted [...] Take 1 tablet by mouth as needed. 018 Active promethazine (PHENERGAN) 25 mg tablet Take 25 mg by mouth four times daily as needed. 021 Active BIPAP Lifetime supplies for BiPAP 12/8 cm H20 including mask, heated tubing, humidity, filters. Dx: G47.33 022 Active meclizine (ANTIVERT) 25 mg tab Take 0.5-1 tablets by mouth three times daily as needed (for dizziness.). 30 tablet 1 022 Active CPAP/BIPAP/OTHER Type .CPAPSettings into a note to see current settings/supplies/ DME information. 1 Each 022 2049 Active glucagon (BAQSIMI) 3 mg/actuation nasal sprayIndications:Ty pe 2 diabetes mellitus with hypoglycemia without coma, without long-term current use of insulin (HCC) Use 1 Chamberlain in the nose as needed for low blood sugar. May repeat after 15 minutes using a new device if there is no response. 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 6 mL 3 Active magnesium glycinate 100 mg magnesium capsuleIndications: Disturbance in sleep behavior Take 2 capsules by mouth daily at bedtime. 60 capsule 11 2025 Active semaglutide (OZEMPIC) 0.25 mg or 0.5 mg (2 mg/3 mL) penIndications:Type 2 diabetes mellitus with hypoglycemia without coma, without long-term current use of insulin ([facility]) For the first 4 weeks, inject 0.25 mg once weekly. After 4 weeks, increase to 0.5 mg weekly and stay at that dose. 1 each Active Blood-Glucose Sensor (DEXCOM G7 SENSOR) deviIndications:Typ e 2 diabetes mellitus with hypoglycemia without coma, without long-term current use of insulin ([facility]) Use to check glucose 4 times or more daily. Change sensor every 10 days. 9 each Active ergocalciferol 50,000 unit capsule (VITAMIN D2, DRISDOL)Indications :Vitamin D insufficiency Take 1 capsule by mouth two times a week. 24 capsule 3 2025 Active Active Problems Problem Noted Date [...] (09/24/2017): Added automatically from request for surgery [id number] Vomiting of fecal matter with nausea 09/24/2017 Overview (09/24/2017): Added automatically from request for surgery [id number] Postoperative malabsorption 03/04/2017 Pneumonia 12/06/2016 Nausea and [...] (08/31/2016): Added automatically from request for surgery [id number] Hernia, paraesophageal 08/31/201612/01 Overview (08/31/2016): Added automatically from request for surgery [id number] Mitral and aortic valve regurgitation 09/08/2009 10/23/2022 Overview (10/08/2017): Aortic insufficiency EF 60% DR Zuniga -- judged to be non-surgical and mild Encounters Date Type Department Care Team Description 07/26/2024 Transcribe Orders Referring Physician [address] [place] [address] Farhat Cabezas MD Esophageal stricture (Primary Dx); Diverticulitis of colon 07/07/2024 Patient Msg Neurology [address] [place] [phone] Thaddeus Diggs MD MRI denial 07/04/2024 Patient Msg Neurology [address] [place] [address] Provider, Ccf from Dr Duenas office 07/04/2024 Telephone Neurology [address] [place] [address] Thaddeus Diggs MD Outsole Handler - Other 07/04/2024 [place] [address] Provider, Ccf Phone call fllow up 07/03/2024 [place] [address] Provider, Ccf MRI Screening Questionnaire Completion Required 06/06/2024 Orders Only Neurology [address] [place] [phone] Thaddeus Diggs MD Paresthesia (Primary Dx); Subjective weakness 05/30/2024 Results Follow-Up Endocrinology [address] [place] [address] Greg Nina, PROJECT CONTROLLER.STORE TEAM MEMBER 05/30/2024 Patient Msg Endocrinology [address] [place] [address] Valdez Suarez MD Endocrinology Scheduling 05/29/2024 3:03 PM EDT - 05/29/2024 11:59 PM EDT Hospital Encounter Radiology [address] [place] [address] Discharge Disposition: Home 05/29/2024 Radiology Radiology [address] [place] [address] Bharti Torres RT(R) Radiology XR 05/29/2024 Get Medical Advice Endocrinology [address] [place] [address] Vinicius Márquez, MARITZA.STORE TEAM MEMBER Sugars 05/24/2024 Get Medical Advice Neurology [address] [place] [address] Thaddeus Diggs MD MRI cervical slime 05/22/2024 Telephone Endocrinology [address] [place], [place] [phone] Greg Nina, PROJECT CONTROLLER.[facility] Insurance Authorization (semaglutide (OZEMPIC) 0.25 mg or 0.5 mg (2 mg/3 mL) pen [[facility]]) 05/18/2024 9:[address] [facility] Endocrinology [address] [place] [address] Greg Nina, PROJECT CONTROLLER.STORE TEAM MEMBER Type 2 diabetes mellitus with hypoglycemia without coma, without long-term current use of insulin (HCC) (Primary Dx); Obesity, Class III, BMI 40-49.9 (morbid obesity) ([facility]); Disturbance in sleep behavior; Depression, unspecified depression type 05/18/2024 Travel from Last 3 Months Immunizations Immunization Administration [...] is lower risk 7 03/07/2024 Data from: https://www.[email or web address].medicine.[email or web address].edu/ . Last address used for [...] Contact Info) Description 08/30/2024 9:30 AM EDT [facility] Endocrinology [address] [place] [phone] Greg Nina APRN.STORE TEAM MEMBER [address] [place] [address] diabetes follow up with me in 3 months virtually 11/20/2024 1:00 PM EDT Distance [facility] Endocrinology [address] [place] [phone] Valdez Suarez MD [facility] [address] [place], [place] [id number] follow up in 6 months Health Maintenance [...] Vaccine (1 of 2) 07/13/2023 Covid-19 Vaccine (2023-2 5 season) 2023 Mammogram Screening 10/28/2023 10/27/2022 Influenza Vaccine (#1) 2024 HbA1C 11/28/2024 05/29/2024, 03/11, 11/30/2022, Additional history exists LDL Cholesterol 05/29/2025 05/29/2024, 12/09, 02/11/2018 Urine Albumin:Creatinine Ratio 05/29/2025 05/29/2024 , 12/22/2022 Cervical Cancer Screening 06/12/20272022, 06/11/2022, 01/10/2018, Additional history exists DTaP,Tdap,Td Vaccine (2 - Td or Tdap) 08/27/2030 08/27/2020 Hepatitis C Screening Completed 12/27/2020 , 12/27/2020, 08/05/2016, Additional history exists Medical Devices Implanted Type Area Electrician Third Device Identifier Shelf Expiration Date Model / Serial / Lot Tube Diane 14fr Silicone Gastrostomy Balloon Bolus Feeding 3-5ml Sterile - [id number] Implanted:Qty: 1 on 11/24/2016 at [facility] Tube N/A: Abdomen [employer] 09/09/2019 [id number] / / [id number] Description:18 maltese DIANE ga strostomy feeding tube - [employer] Procedures Procedure Name Priority Date/Time Associated Diagnosis [...] AM EDT IMPRESSION: 1. Fifth metatarsal fracture Railroad Car Truck Builder: SILVIA Transcribe Date/Time: May 30 2024 10:01A [...] swelling at the forefoot Procedure Note Provider, [facility] [place] - 05/30/2024 * * *Final Report* * [...] forefoot IMPRESSION IMPRESSION: 1. Fifth metatarsal fracture Railroad Car Truck Builder: SILVIA Transcribe Date/Time: May 30 2024 10:01A Dictated by : JONATHAN WADSWORTH MD This examination was interpreted and the report reviewed and electronically signed by: JONATHAN WADSWORTH MD on May 30 2024 10:04AM EST Ccf Provider RAD-PAMA Final Result * ALBUMIN/CREATININE RATIO, URINE (05/29/2024 3:00 PM EDT) Creatinine, Ur Random (UCRR) 208.7 20.0 - 300.0 mg/dL 05/30/2024 1:19 PM EDT [facility] Albumin, Urine Random 21.1 mg/L 05/30/2024 1:19 PM EDT [facility] Albumin/Creat Ratio 10 <30 mg/g 05/30/2024 1:19 PM EDT [facility] Comment: Adult Male and Female [...] EDT 05/29/2024 3:00 PM EDT Greg Nina APRN.STORE TEAM MEMBER LABORATORY Final R esult [facility] [address] [place] [address] * (ABNORMAL) VITAMIN D 25 HYDROXY (05/29/2024 2:55 PM EDT) Vitamin D 25 Hydroxy 25.8(L) 31.0 - 80.0 ng/mL 05/30/2024 12:38 PM EDT [facility] Comment: Classification of 25 [place] Vitamin D status: Deficiency/Insufficiency: < or = 30 ng/ml. Sufficiency/Optimal Levels: 31-80 ng/mL Toxicity: > 100 ng/mL. Test performed by chemiluminescent immunoassay. Blood BLOOD SPECIMEN / Unknown Venipuncture / Unknown 05/29/2024 2:55 PM EDT 05/29/2024 2:55 PM EDT Narrative [facility] - 05/30/2024 12:38 PM EDT The reference range interval was based on an analysis of samples from healthy adults and may not pertain to children from 0-18 years old. Valdez Suarez MD LABORATORY Final Resu lt [facility] [address] [facility] [address] [place] [address], [place] * THYROID STIMULATING HORMONE (05/29/2024 2:55 PM EDT) Pathologist [facility] [place] TSH 1.070 0.270 - 4.200 mIU/L 05/30/2024 4:48 AM EDT [facility] Comment: If the patient is , TSH reference range varies by gestational period: First Trimester (weeks 9-12): 0.180-2.990 mIU/L Second Trimester: 0.110-3.980 mIU/L Third Trimester: 0.480-4.710 mIU/L Rohit Mares et al. A Practical Approach for the Verifications and Determination of Site- and Trimester-Specific Reference Intervals for Thyroid Function tests in . Thyroid, 2019:29:3:412-420. Hany Torre, et al. 2017 Guidelines of the [place] Thyroid Association for the Diagnosis and Management of Thyroid Disease during and the . Thyroid, 2017:27:3:315-389. Blood BLOOD SPECIMEN / Unknown Venipuncture / Unknown 05/29/2024 2:55 PM EDT 05/29/2024 2:55 PM EDT Valdez Suarez MD LABORATORY Final Resu lt [facility] [address] [facility] [address] [place] [address], [place] * LIPID PANEL, FASTING (05/29/2024 2:55 PM EDT) Cholesterol, Total 132 <200 mg/dL 05/30/2024 4:[address] [facility] Comment: <200 mg/dL, Desirable 200-239 mg/dL, Borderline high >239 mg/dL, High Triglyceride 139 <150 mg/dL 05/30/2024 4:[address] [facility] Comment: <150 mg/dL, Normal 150-199 mg/dL, Borderline high 200-499 mg/dL, High >499 mg/dL, Very high HDL Cholesterol 41 >39 mg/dL 4:[address] [facility] Comment: 40-59 mg/dL, Acceptable >59 mg/dL, High: Negative risk factor for coronary heart disease <40 mg/dL, Low: Positive risk factor for coronary heart disease Non HDL Cholesterol 91 <130 mg/dL 05/30/2024 4:[address] [facility] Comment: <130 mg/dL, Optimal 130-159 mg/dL, Near optimal/above optimal 160-189 mg/dL, Borderline high 190-219 mg/dL, High >219 mg/dL, Very high Secondary prevention optimal non HDL Cholesterol levels are recommended to be <100 mg/dL Fasting Time 12 hrs 05/30/2024 4:41 AM [facility] LABORATORY VLDL Cholesterol 28 <30 mg/dL 05/31/19 25 4:[address] [facility] TC:HDL Ratio 3.22 <5.10 05/30/2024 4:[address] [facility] LDL Cholesterol, Calculated 63 <100 mg/dL 05/30/2024 4:[address] [facility] Comment: <100 mg/dL, Optimal 100-129 mg/dL, Near optimal/above optimal 130-159 mg/dL, Borderline high 160-189 mg/dL, High >189 mg/dL, Very high Secondary prevention optimal LDL Cholesterol levels are recommended to be < 70 mg/dL LDL:HDL Ratio 1.54 <2.54 05/30/2024 4:[address] [facility] Comment: Reference: 1. National Cholesterol Education Program ATP III Guideline At-A-Glance Quick Desk Reference: National Heart, Lung, and Blood [place]. National Institutes of Health. 2001: NIH Publication No. 01-3305. 2. An International Atherosclerosis Society position paper: global recommendations for the management of dyslipidemia: executive summary, Atherosclerosis. 2014: 232(2):410-413. Blood BLOOD SPECIMEN / Unknown Venipuncture / Unknown 05/29/2024 2:55 PM EDT 05/29/2024 2:55 PM EDT Greg Nina APRN.STORE TEAM MEMBER LABORATORY Final R esult Performing Organization Address City/[facility]/ZIP Co de Phone Number [facility] [address] [place] [address], [facility] [address] [place] [address], [place] * (ABNORMAL) HEMOGLOBIN A1C (05/29/2024 2:55 PM EDT) Hemoglobin A1C 6.5(H) 4.3 - 5.6 % 05/30/2024 6:18 AM EDT [facility] Comment:[place] Diabetes As sociation guidelines indicate that patients with HgbA1c in the range 5.7-6.4% are at increased risk for development of diabetes, and intervention by lifestyle modification may be beneficial. HgbA1c greater or equal to 6.5% is considered diagnostic of diabetes. Estimated Average Glucose 140 mg/dL 05/30/2024 6:18 AM EDT [facility] Comment:eAG: (Estimated aver age glucose) is a calculated value from HgbA1c and is sales representative printing of the average blood glucose level in the last 2-3 month period. Blood BLOOD SPECIMEN / Unknown Venipuncture / Unknown 05/29/2024 2:55 PM EDT 05/29/2024 2:55 PM EDT Greg Nina APRN.STORE TEAM MEMBER LABORATORY Final R esult [facility] [address] [address], [place] * (ABNORMAL) COMPREHENSIVE METABOLIC PANEL (05/29/2024 2:55 PM EDT) Pathologist [facility] [place] Protein, Total 6.4 6.3 - 8.0 g/dL 05/30/2024 4:[address] [facility] Albumin 3.6(L) 3.9 - 4.9 g/dL 05/30/2024 4:[address] [facility] Calcium, Total 8.4(L) 8.5 - 10.2 mg/dL 05/30/2024 4:[address] [facility] Bilirubin, Total 0.2 0.2 - 1.3 mg/dL 05/30/2024 4:[address] [facility] Alkaline Phosphatase 248(H) 34 - 123 U/L 05/30/2024 4:[address] [facility] AST 38(H) 13 - 35 U/L 05/30/2024 4:[address] [facility] ALT 43(H) 7 - 38 U/L 05/30/2024 4:[address] [facility] Glucose 280(H) 74 - 99 mg/dL 05/30/2024 4:[address] [facility] Comment: The [place] Diabetes Association (ADA) provides guidance for cutoff [...] Standards of Medical Care in Diabetes 2016, [place] Diabetes Association. Diabetes Care. 2016.39(Suppl 1). BUN 6(L) 7 - 21 mg/dL 05/30/2024 4:[address] [facility] Creatinine 0.92 0.58 - 0.96 mg/dL 05/30/2024 4:[address] [facility] Sodium 138 136 - 144 mmol/L 05/30/2024 4:[address] [facility] Potassium 4.1 3.7 - 5.1 mmol/L 05/30/2024 4:41 AM EDT [facility] Chloride 107 98 - 107 mmol/L 05/30/2024 4:41 AM EDT [facility] CO2 19(L) 22 - 30 mmol/L 05/30/2024 4:41 AM EDT [facility] Anion Gap 12 8 - 15 mmol/L 05/30/2024 4:41 AM EDT [facility] Estimated Glomerular Filtration Rate 76 >=60 mL/min/1.7 3m 05/30/2024 4:41 AM EDT [facility] Comment:Estimated Glomerular Filtration Rate (eGFR) [...] 05/29/2024 2:55 PM EDT us Greg Nina APRN.[facility] LABORATORY Final R esult [facility] [address] [place] [address], [place] * JUS SCREENING W SURINDER (10/27/2022 10:46 AM EDT) Anatomical Region Laterality Modality Breast Other 10/27/2022 10:4 6 AM EDT Impressions 10/28/2022 7:43 AM EDT IMPRESSION: NEGATIVE There is no mammographic evidence of malignancy. A 1 year screening mammogram is recommended. The exam was reviewed by a staff physician. karen Canada M.D., D.O./caron:10/27/2022 11:12:38 Food Service Hotel Runner(s): RT Kristin(Pierce)(M), [facility] letter sent: Normal over 40 Mammogram [...] Health, Family Medicine, and Medical/Surgical Oncology, the [facility] has carefully reviewed the data and [...] their providers when to stop screening mammograms. Railroad Car Truck Builder: Caron Transcribe Date/Time: Oct 27 2022 10:26A [...] Physician Interpretation * * * * RESULT: #[id number] - JUS SCREENING W SURINDER BILATERAL FIRST [...] seen in either breast. Procedure Note Provider, [facility] [place] - 10/28/2022 * * *Final Report* * * DATE OF EXAM: Oct 27 2022 10:46AM [id number] - [facility] SCREENING W SURINDER / PROCEDURE REASON: Encounter for screening mammogram for malignant neoplasm of breast * * * * Physician Interpretation * * * * RESULT: #[id number] - JUS SCREENING W SURINDER BILATERAL FIRST [...] by a staff physician. Anne pack,karen/caron:10/27/2022 11:12:38 Food Service Hotel Runner(s): RT Kristin(Pierce)(M), [facility] letter sent: Normal over 40 Mammogram [...] Health, Family Medicine, and Medical/Surgical Oncology, the [facility] has carefully reviewed the data and [...] their providers when to stop screening mammograms. Railroad Car Truck Builder: Caron Transcribe Date/Time: Oct 27 2022 10:26A Dictated by: JING HALL DO This examination was interpreted and the report reviewed and electronically signed by: ANNE BOB MD on Oct 27 2022 11:12AM EST us Eleanor Chanel DO JUS-PAMA Final Res ult * PAP TEST (06/11/2022 12:41 PM EDT) Case Report Gynecologic Cytology Report Case: [id number] Authorizing Provider: Eleanor Chanel DO Collected: 06/11/2022 12:41 PM Ordering Location: CB/Gynecology Received: 06/12/2022 05:13 AM First Screen: Chiara Salguero CT, ASCP Rescreen: LEO Ng, ASCP Specimen: Pap Test, ThinPrep, Cervix 06/18/2022 12:27 PM EDT [facility] FINAL DIAGNOSIS A - Cervix Satisfactory for interpretation Negative for Intraepithelial lesion or malignancy. 06/18/2022 12:27 PM EDT [facility] at 1227 EDT LMP 04/06/2022 06/18/2022 12:27 PM EDT [facility] Pap Disclaimer The Pap Smear is a screening test for cervical cancer. False negative results occur with all screening tests, emphasizing the need for rescreening at recommended intervals, and clinical correlation. 06/18/2022 12:27 PM EDT [facility] PAP Access Control Officer Comment This specimen has been analyzed by the ThinPrep Imaging System, an automated imaging and review system, which assists the laboratory in evaluating cells on ThinPrep Pap tests. Following automated imaging, selected rojas from every slide are reviewed by a etcher machine. 06/18/2022 12:27 PM EDT [facility] Performing Lab Technical component, etcher machine screening performed at [facility], [address] [place] [address] CLIA# [id number] Diagnostic interpretation performed at [facility], [address] [place] [address] CLIA# [id number] Supervisor Riveting: Moshe Craft M.D. 06/18/2022 12:27 PM EDT [facility] Clinical History Routine Exam 2022 12:27 PM EDT [facility] Comment:h/o CIN1 HPV Reflex Auto HPV 06/18/2022 12:27 PM EDT [facility] Cytology Interpretation Negative for Intraepithelial lesion or malignancy. 06/18/2022 12:27 PM EDT [facility] at 1227 EDT Sterile Fluid/Body Fluid CERVICAL / Unknown Non Blood / Unknown 06/11/2022 12:41 PM EDT 06/12/2022 5:13 AM EDT us Eleanor Chanel DO CYTOLOGY Final Res ult [facility] [address] [place], [place] [address]k [address] [place] [address], * HCV QUANT RNA BY PCR (12/27/2020 12:49 PM EST) HCV RNA by PCR HCV RNA not detected by PCR. IU/mL 12/27/2020 8:00 PM EST [facility] Comment: Reference Range: Negative for HCV RNA The Linear Range of this assay is 15 IU/mL to 100,000,000 IU/mL. Blood OTHER / Unknown 12/27/2020 1 2:49 PM EST 12/27/2020 12:51 PM EST us Lorenzo Perry DO LABORATORY Final Resul t [address] [place] [address] * COLONOSCOPY (10/13/2017 8:01 AM EDT) Unit Operator [facility] Gastrointestinal Endoscopy Patient Name: Esme Reyes Procedure Date: 10/13/2017 8:01 AM Account Number: Date of : 1975 Admit Type: Outpatient Age: 42 Room: [facility] A Gender: Female Note Status: Finalized Attending MD: [...] Pardo in one week for pathology results [phone] if you have not received letter, call [...] PhD [facility] I[facility]AL Final Result [facility] [address] [place] [address] [facility] from Last 3 Months or Most Recently Relevant to Health Maintenance Insurance [employer] [place] * Guarantor: Esme Reyes Account Type Relation to Patient Date of Phone Billing Address Vision Self 1975 [address] [place] [address] * Guarantor: Esme Reyes Account Type Relation to Patient Date of Phone Billing Address Self Pay Self 1975 [address] [place] [address] Advance Directives Documents on File Type Date Recorded 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
--- OUTSIDE RECORDS SUMMARY | 2024-08-17 13:16 | XMS_ITS | Encounter Summary ---
Author Organization [facility] Address [facility] [place] [address] Care Team Providers Care Irrigation Equipment Mechanic Name Role Phone Jacob Santillan MD Primary Care Provider [phone] Farhat Cabezas MD Primary Care Provider [phone] Farhat Cabezas MD Unavailable [phone] Farhat Cabezas MD Unavailable [phone] Source Comments In the event this information is protected by the Federal Confidentiality of Alcohol and Drug AbusePatient Records regulations: The Federal rules restrict any use of the information to criminally investigate or prosecute any alcohol or drug abuse patient.[facility] Encounter Details Date Type Department Care Team (Late st Contact Info) Description 09/20/2008 Patient Msg Medical Records [address] [place] [address] Provider, Ccf RE: Findings/questions/GI refferal Social History [...] 9:30 AM EDT [facility] Endocrinology [address] [place] [phone] Greg Nina APRN.COMMODITY ANALYST [address] [place] [address] diabetes follow up with me in 3 months virtually 11/20/2024 1:00 PM EDT [facility] Endocrinology [address] [place] [phone] Valdez Suarez MD [address] [place] [address] [address] [place], [place] [phone] follow up in 6 months documented as of this encounter Visit Diagnoses Not on filedocumented in this encounter Care Teams Irrigation Equipment Mechanic Relationship Specialty Start Date End Date Jacob Santillan MD PCP - General 08/05/05 01/12/11 Farhat Cabezas MD PCP - General Family Medicine 01/13/11 Farhat Cabezas MD Referring Family Medicine 01/08/22 Farhat Cabezas MD [address] [place] [address] Referring Family Medicine 07/26/24 documented as of this encounter
--- OUTSIDE RECORDS SUMMARY | 2024-08-17 13:16 | XMS_ITS | Encounter Summary ---
Demographics Address [address] [place] [address] Home Phone Mobile Phone Email Address Preferred Language ENG Marital Status Single Samaritan Affiliation Unknown Race White Ethnic Group Not or Lati no Author Organization [facility] Address [address] [place] [address] Care Team Providers Care Information Systems Security Analyst Name Role Phone Farhat Cabezas MD Primary Care Provider [phone] Farhat Cabezas MD Unavailable [phone] Farhat Cabezas MD Unavailable [phone] Source Comments In the event this information is protected by the Federal Confidentiality of Alcohol and Drug AbusePatient Records regulations: The Federal rules restrict any use of the information to criminally investigate or prosecute any alcohol or drug abuse patient.[facility] Encounter Details Date Type Department Care Team (Late st Contact Info) Description 10/05/2019 Get Medical Advice [facility] REJ [address] [place], [place] [id number] Rachel Yi MD [address] [place] [address] RE: Visit Follow Up Question [...] Contact Info) Description 08/30/2024 9:30 AM EDT [facility] Endocrinology [address] [place] [phone] Greg Nina APRN.DEPARTMENT HELPER [address] [place] [address] diabetes follow up with me in 3 months virtually 11/20/2024 1:00 PM EDT [facility] Endocrinology [address] [place] [address] Valdez Suarez MD [address] [place] [address] [address] [place], [place] [phone] follow up in 6 months documented as of this encounter Visit Diagnoses Not on filedocumented in this encounter Care Teams Information Systems Security Analyst Relationship Specialty Start Date End Date Farhat Cabezas MD PCP - General Family Medicine 01/13/11 Farhat Cabezas MD Referring Family Medicine 01/08/22 [place] [address] [place] [address] Referring Family Medicine 07/26/24 documented as of this encounter
--- OUTSIDE RECORDS SUMMARY | 2024-08-17 13:16 | XMS_ITS | Encounter Summary ---
Demographics Address [address] [facility] [place] [address] Home Phone Mobile Phone Email Address Preferred Language ENG Marital Status Single Nondenominational Affiliation Unknown Race White Ethnic Group Not or Lati no Author Organization [facility] Address [address] [place] [address] Care Team Providers Care Carbide Powder Processor Name Role Phone Farhat Cabezas MD Primary Care Provider [phone] Farhat Cabezas MD Unavailable [phone] Farhat Cabezas MD Unavailable [phone] Source Comments In the event this information is protected by the Federal Confidentiality of Alcohol and Drug AbusePatient Records regulations: The Federal rules restrict any use of the information to criminally investigate or prosecute any alcohol or drug abuse patient.[facility] Encounter Details Date Type Department Care Team (Late st Contact Info) Description 09/28/2021 Patient Msg Sleep Psychology [address] [place] [address] [place] [address] [facility] [address] [place] [id number] behavioral sleep medicine visit Tues Social History [...] N ot on file 07/19/2021 Data from: https://www.neighborhoodatlas.medicine.[facility]/. Last address used for calculation [address] [...] Contact Info) Description 08/30/2024 9:30 AM EDT [facility] Endocrinology [address] [place] [phone] Greg Nina APRN.INFORMATION TECHNOLOGY [employer] [address] [place], [place] [phone] diabetes follow up with me in 3 months virtually 11/20/2024 1:00 PM EDT [facility] Endocrinology [address] [place] [phone] Valdez Suarez MD [address] [place] [address] [address] [place], [place] [phone] follow up in 6 months documented as of this encounter Visit Diagnoses Not on filedocumented in this encounter Care Teams Carbide Powder Processor Relationship Specialty Start Date End Date Farhat Cabezas MD PCP - General Family Medicine 01/13/11 Farhat Cabezas MD Referring Family Medicine 01/08/22 Farhat Cabezas MD [address] [place] [address] Referring Family Medicine 07/26/24 documented as of this encounter
--- OUTSIDE RECORDS SUMMARY | 2024-08-17 13:16 | XMS_ITS | Encounter Summary ---
Demographics Address [address] [facility] [place] [address] Home Phone Mobile Phone Email Address Preferred Language ENG Marital Status Single Zoroastrian Affiliation Unknown Race White Ethnic Group Not or Lati no Author Organization [facility] Address [address] [place] [address] Care Team Providers Care Tool Room Supervisor Name Role Phone Farhat Cabezas MD Primary Care Provider [phone] Farhat Cabezas MD Unavailable [phone] Farhat Cabezas MD Unavailable [phone] Source Comments In the event this information is protected by the Federal Confidentiality of Alcohol and Drug AbusePatient Records regulations: The Federal rules restrict any use of the information to criminally investigate or prosecute any alcohol or drug abuse patient.[facility] Encounter Details Date Type Department Care Team (Late st Contact Info) Description 10/25/2020 Patient Msg [facility] [address] [place] [id number] Provider, Ccf Referral- WELLNESS CONSULT Social History [...] N ot on file 01/16/2020 Data from: https://www.uk healthcareatlas.[facility]/. Last address used for [...] Description 08/30/2024 9:30 AM EDT [facility] Endocrinology [address] [place] [address] Greg Nina APRN.COLLAR SEPARATOR [address] [place] [address] diabetes follow up with me in 3 months virtually 11/20/2024 1:00 PM EDT [facility] Endocrinology [address] [place] [address] Valdez Suarez MD [address] [place] [address] [address] [place], [place] [phone] follow up in 6 months documented as of this encounter Visit Diagnoses Not on filedocumented in this encounter Care Teams Tool Room Supervisor Relationship Specialty Start Date End Date Farhat Cabezas MD PCP - General Family Medicine 01/13/11 Farhat Cabezas MD Referring Family Medicine 01/08/22 [place] [address] [place] [address] Referring Family Medicine 07/26/24 documented as of this encounter
--- OUTSIDE RECORDS SUMMARY | 2024-08-17 13:16 | XMS_ITS | Encounter Summary ---
Demographics Address [address] [facility] [place] [place] [address] Home Phone Mobile Phone Email Address Preferred Language ENG Marital Status Single Advent Affiliation Unknown Race White Ethnic Group Not or Lati no Author Organization [facility] Address [address] [place] [address] Care Team Providers Care Esthetician/Skin Therapist Name Role Phone Farhat Cabezas MD Primary Care Provider [phone] Farhat Cabezas MD Unavailable [phone] Farhat Cabezas MD Unavailable [phone] Source Comments In the event this information is protected by the Federal Confidentiality of Alcohol and Drug AbusePatient Records regulations: The Federal rules restrict any use of the information to criminally investigate or prosecute any alcohol or drug abuse patient.[facility] Encounter Details Date Type Department Care Team (Late st Contact Info) Description 09/23/2021 Patient Msg [facility] [address] [place] [address] Provider, Ccf A Message from the [facility] Social History Tobacco Use Types [...] N ot on file 07/19/2021 Data from: https://www.neighborhoodatlas.[facility].edu/. Last address used for calculation [address] [facility] 07/19/2021 Comments No Sex and Gender [...] Contact Info) Description 08/30/2024 9:30 AM EDT [facility] Endocrinology [address] [place] [address] Greg Nina APRN.ACCOUNT SPECIALIST [address] [place] [address] diabetes follow up with me in 3 months virtually 11/20/2024 1:00 PM EDT [facility] Endocrinology [address] [place] [phone] Valdez Suarez MD [address] [place] [address] [address] [place], [place] [phone] follow up in 6 months documented as of this encounter Visit Diagnoses Not on filedocumented in this encounter Care Teams Esthetician/Skin Therapist Relationship Specialty Start Date End Date Farhat Cabezas MD PCP - General Family Medicine 01/13/11 Farhat Cabezas MD Referring Family Medicine 01/08/22 Farhat Cabezas MD [address] [place] [address] Referring Family Medicine 07/26/24 documented as of this encounter
--- OUTSIDE RECORDS SUMMARY | 2024-08-17 13:16 | XMS_ITS | Encounter Summary ---
Author Organization [facility] Address [address] [place] [address] Care Team Providers Care Frame Builder Name Role Phone Jacob Santillan MD Primary Care Provider [phone] Farhat Cabezas MD Primary Care Provider [phone] Farhat Cabezas MD Unavailable [phone] Farhat Cabezas MD Unavailable [phone] Source Comments In the event this information is protected by the Federal Confidentiality of Alcohol and Drug AbusePatient Records regulations: The Federal rules restrict any use of the information to criminally investigate or prosecute any alcohol or drug abuse patient.[facility] Encounter Details Date Type Department Care Team ([facility] Contact Info) Description 10/18/2008 Patient Msg Medical Records [address] [place] [address] Provider, Ccf Patient Registration Social History Tobacco [...] Upcoming Encounters Date Type Department Care Team ([facility] Contact Info) Description 08/30/2024 9:30 AM EDT [facility] Endocrinology [address] [place] [phone] Greg Nina APRN.COMMERCIAL AGENT [address] [place] [address] diabetes follow up with me in 3 months virtually 11/20/2024 1:00 PM EDT [facility] Endocrinology [address] [place] [phone] Valdez Suarez MD [address] [place] [address] [address] [place], [place] [phone] follow up in 6 months documented as of this encounter Visit Diagnoses Not on filedocumented in this encounter Care Teams Frame Builder Relationship Specialty Start Date End Date Jacob Santillan MD PCP - General 08/05/05 01/12/11 Farhat Cabezas MD PCP - General Family Medicine 01/13/11 Farhat Cabezas MD Referring Family Medicine 01/08/22 Farhat Cabezas MD [address] [place] [address] Referring Family Medicine 07/26/24 documented as of this encounter
--- OUTSIDE RECORDS SUMMARY | 2024-08-17 13:16 | XMS_ITS | Patient Health Record ---
Author Organization [facility] [place] Address [address] [place] [address] Care Team Providers Care Systems Spec Name Role Phone DAVEY PINEDA MD Primary Care Provider Davey Pineda Unavailable [phone] Adrienne Corbett Unavailable [phone] Allergies Allergen (clinical drug ingredient) Drug/Non Drug Allergy documented on EMR Reaction Allergy Type Onset Date Status metformin metFORMIN HCl stomach upset Drug Allergy Active ibuprofen Ibuprofen stomach upset Drug Allergy Act libertad Results Component Value Reference Range Notes CBC AUTO DIFF Reviewed date:04/05/2024 12:43:55 PM Interpretation: Performing Lab: Notes/Report: [facility] , White Blood Count 8.5 4.0-11.0 10 [...] 0.00-0.03 10 3/uL Performing Lab: see note - [facility] LB PROF 14(COMP METB) Reviewed date:04/05/2024 12:43:55 PM Interpretation: Performing Lab: Notes/Report: [facility] , Sodium 139 136-145 mmol/L Potassium 3.8 3.5-5.1 mmol/L Chloride 101 98-107 mmol/L Carbon Dioxide 26.3 21.0-32.0 mmol/L Anion Gap 15.5 Glucose 124 74-106 mg/dL Blood Urea Nitrogen 7.0 7.0-18.0 mg/dL Creatinine 1.25 0.55-1.02 mg/dL Estimated GFR ( Era 55 >=60 mL/min/1.73m 2 Estimated GFR (Non- Francia 45 >=60 mL/min/1.73m 2 BUN Creatinine Ratio 5.6 Calcium 9.3 8.5-10.1 mg/dL Bilirubin Total 0.5 0.2-1.0 mg/dL Aspartate Amino Transferase 24 15-37 U/L Alanine Aminotransferase 27 14-59 U/L Alkaline Phosphatase 315 46-116 U/L Total Protein 8.4 6.4-8.2 g/dL Albumin Level 4.0 3.4-5.0 g/dL Globulin 4.4 Albumin Globulin Ratio 0.9 Performing Lab: see note - [facility] LB RAFAELA by IFA Reviewed date:07/25/2024 04:47:33 PM Interpretation: Performing Lab: Notes/Report: [facility] , Antinuclear Antibodies, IFA Negative . Negative <1:80 Borderline 1:80 Positive >1:80 ICAP nomenclature: AC-0 For more information about Hep-2 cell patterns use ANApatterns.org, the official website for the International Consensus on Antinuclear Antibody (RAFAELA) Patterns (ICAP). Performed at: - [facility] [address] [id number] World Designer: Moi Osborne PhD, Phone: [phone] Performing Lab: see note - [facility] LB CBC AUTO DIFF Reviewed date:07/23/2024 12:49:20 PM Interpretation: Performing Lab: Notes/Report: [facility] , White Blood Count 7.7 4.0-11.0 10 3/uL Red Blood Count 4.64 4.20-5.40 10 6/uL Hemoglobin 11.7 12.0-16.0 g/dL Hematocrit 37.6 36.0-48.0 % Mean Corpuscular Volume 81.0 81.0-99.0 fL Mean Corpuscular Hemoglobin 25.2 26.7-34.0 pg Mean Corpuscular HGB Conc 31.1 29.9-35.2 g/dL Red Cell Distribution Width 18.2 11.0-15.0 % Platelet Count 331 150-450 10 3/uL Mean Platelet Volume 9.7 9.5-13.5 fL Neutrophils Percent Auto 52.9 43.0-75.0 % Lymphocytes Percent Auto 35.8 20.5-60.0 % Monocytes Percent Auto 5.5 1.7-12.0 % Eosinophils Percent Auto 4.4 0.9-7.0 % Basophils Percent Auto 0.4 0.2-2.0 % Immature Granulocytes Pct Auto 1.0 0.0-0.5 % Neutrophils Absolute Auto 4.1 1.4-6.5 10 3/uL Lymphocytes Absolute Auto 2.8 1.2-3.8 10 3/uL Monocytes Absolute Auto 0.4 0.3-0.8 10 3/uL Eosinophils Absolute Auto 0.3 0.0-0.7 10 3/uL Basophils Absolute Auto 0.0 0.0-0.1 10 3/uL Immature Granulocytes Abs Auto 0.08 0.00-0.03 10 3/uL Performing Lab: see note ML - [facility] LB CRP Reviewed date:07/23/2024 12:49:20 PM Interpretation: Performing Lab: Notes/Report: [facility] , C Reactive Protein 2.23 <=0.50 mg/dL Performing Lab: see note ML - [facility] LB FOLATE Reviewed date:07/23/2024 12:49:20 PM Interpretation: Performing Lab: Notes/Report: [facility] , Folate 4.60 8.60-58.90 ng/mL Performing Lab: see note ML - [facility] LB FREE T3 Reviewed date:07/23/2024 12:49:20 PM Interpretation: Performing Lab: Notes/Report: [facility] , Free T3 2.09 2.18-3.98 pg/mL Performing Lab: see note ML - [facility] LB IRON Reviewed date:07/23/2024 12:49:20 PM Interpretation: Performing Lab: Notes/Report: [facility] , Iron 34.0 50.0-170.0 ug/dL Performing Lab: see note ML - [facility] LB PROF 14(COMP METB) Reviewed date:07/23/2024 12:49:20 PM Interpretation: Performing Lab: Notes/Report: [facility] , Sodium 138 136-145 mmol/L Potassium 3.5 3.5-5.1 mmol/L Chloride 101 98-107 mmol/L Carbon Dioxide 28.6 21.0-32.0 mmol/L Anion Gap 11.9 Glucose 130 74-106 mg/dL Blood Urea Nitrogen 10.0 7.0-18.0 mg/dL Creatinine 1.14 0.55-1.02 mg/dL Estimated GFR ( Era >60 >=60 mL/min/1.73m 2 Estimated GFR (Non- Francia 50 >=60 mL/min/1.73m 2 BUN Creatinine Ratio 8.8 Calcium 8.9 8.5-10.1 mg/dL Bilirubin Total 0.3 0.2-1.0 mg/dL Aspartate Amino Transferase 29 15-37 U/L Alanine Aminotransferase 48 14-59 U/L Alkaline Phosphatase 431 46-116 U/L Total Protein 7.2 6.4-8.2 g/dL Albumin Level 3.1 3.4-5.0 g/dL Globulin 4.1 Albumin Globulin Ratio 0.8 Performing Lab: see note ML - [facility] LB RHEUMATOID FACTOR Reviewed date:07/25/2024 04:47:33 PM Interpretation: Performing Lab: Notes/Report: [facility] , Rheumatoid Factor (RF) <10.0 <14.0 IU/mL Performing Lab: see note - [facility] LB T4 Reviewed date:07/23/2024 12:49:20 PM Interpretation: Performing Lab: Notes/Report: [facility] , T4 Thyroxine 5.40 4.80-13.90 ug/dL Performing Lab: see note ML - [facility] LB TSH Reviewed date:07/23/2024 12:49:20 PM Interpretation: Performing Lab: Notes/Report: [facility] , Thyroid Stimulating Hormone 4.618 0.358-3.740 uIU/mL Performing Lab: see note ML - [facility] LB URIC ACID SERUM Reviewed date:07/23/2024 12:49:20 PM Interpretation: Performing Lab: Notes/Report: [facility] , Uric Acid 5.8 2.6-6.0 mg/dL Performing Lab: see note ML - [facility] LB Antistreptolysin O Ab Reviewed date:07/25/2024 04:47:33 PM Interpretation: Performing Lab: Notes/Report: [facility] , Antistreptolysin O Ab 104.5 0.0-200.0 IU/mL Performed at: [facility] [address] [id number] World Designer: Moi Osborne PhD, Phone: [phone] Performing Lab: see note - [facility] LB Vitamin D, 25-Hydroxy Reviewed date:07/25/2024 04:47:33 PM Interpretation: Performing Lab: Notes/Report: [facility] , Vitamin D, 25-Hydroxy 26.6 30.0-100.0 ng/mL Vitamin D deficiency has been defined by the [place] of [employer] and an Endocrine Society practice guideline as a level of serum 25-OH vitamin D less than 20 ng/mL (1,2). The Endocrine Society went on to further define vitamin D insufficiency as a level between 21 and 29 ng/mL (2). 1. IOM ([place] of [employer]). 2010. Dietary reference intakes for calcium and D. [place]: The National Academies Press. 2. Joseph MF, Barrington FORD, Tequila HO, et al. Evaluation, treatment, and prevention of vitamin D deficiency: an Endocrine Society clinical practice guideline. JCEM. 2010; 96(7):1911-30. Performed at: - [facility] [address] [id number] World Designer: Moi Osborne PhD, Phone: [phone] Performing Lab: see note - [facility] LB XR chest 2V Reviewed date:07/23/2024 12:49:20 PM Interpretation: Performing Lab: Notes/Report: Source Facility: [place] [address] XRay Report Signed Patient: ESME REYES MR#: [id number] : 1975 Acct:[id number] Age/Sex: 49 / F ADM Date: 07/20/24 Loc: LAB Attending Dr: Maribel Pineda M.D. Ordering Physician: Maribel Pineda M.D. Date of Service: 07/20/24 Procedure(s): XR chest 2V Accession Number(s): [id number] cc: Maribel Pineda M.D. [place] [address] Patient Name: ESME REYES MRN: [id number] date: 1975 Sex: F Assigned Patient Location: LAB Current Patient Location: LAB Accession/Order Number: [id number] Exam Date: 07/20/2024 17:55 Report Date: 07/20/2024 17:55 At the request of: MARIBEL PINEDA MD Procedure: XR chest 2V Plain film chest 2 view HISTORY: Cough and shortness of breath COMPARISON: 09/16/2020 FINDINGS: SUPPORT DEVICES: None POSTSURGICAL CHANGES: None HEART: Within normal limits PULMONARY CARMELITA: Within normal limits MEDIASTINUM: Unremarkable LUNGS AND PLEURA: No acute lung process, pleural effusion or pneumothorax identified. BONY STRUCTURES: Intact ADDITIONAL FINDINGS None XR/XR chest 2V IMPRESSION: No acute process. Impression dictated by: Roberto Diego M.D. 07/20/2024 5:55 PM Dictation Location: [facility]-20 Electronically authenticated by: [id number] Y Date: 07/20/2024 17:55 Dictated By: Roberto Diego D.O. Signed By: 07/20/241757 DD/ 54 TD/TT: Sales And Marketing Intern: [address] [address] XRay Report Signed Patient: MIKE REYES MR#: [id number] : 1975 Acct:[id number] Age/Sex: 49 / F ADM Date: 07/20/24 Loc: LAB Attending Dr: Deidre Pineda M.D. Ordering Physician: Maribel Pineda M.D. Date of Service: 07/20/24 Procedure(s): XR [address] 2V Accession Number(s): [id number] cc: Maribel Pineda M.D. [place] [address] Patient Name: ESME REYES MRN: [id number] date: 1975 Sex: F Assigned Patient Location: LAB Current Patient Location: LAB Accession/Order Number: [id number] Exam Date: 07/20/2024 17:55 Report Date: 07/20/2024 17:55 At the request of: MARIBEL PINEDA MD Procedure: XR chest 2V Plain film chest 2 view HISTORY: Cough and shortness of breath COMPARISON: 09/16/2020 FINDINGS: SUPPORT DEVICES: None POSTSURGICAL CHANGES : None HEART: Within normal limits PULMONARY CARMELITA: With in normal limits MEDIASTINUM: Unremarkable LUNGS AND PLEURA: No acute lung process, pleural effusion or pneumothorax identified. BONY STRUCTURES: Intact ADDITIONAL FINDINGS None XR/XR chest 2V IMPRESSION: No acute process. Impression dictated by: Roberto Diego M.D. 07/20/2024 5:55 PM Dictation Location: [facility]-20 Electronically authenticated by: [id number] Y Date: 07/20/2024 17:55 Dictated By: Roberto Diego D.O. Signed By: 07/20/241757 DD/ 54 TD/TT: Sales And Marketing Intern: FERRITIN Reviewed date:07/23/2024 12:49:20 PM Interpretation: Performing Lab: Notes/Report: [facility] , Ferritin 18.0 8.0-252.0 ng/mL Performing Lab: see note - [facility] LB Vitamin B12 Reviewed date:07/23/2024 12:49:20 PM Interpretation: Performing Lab: Notes/Report: [facility] , Vitamin B12 950 [address]21-2054 pg/mL Performed at: - [facility] [id number] World Designer: Moi Osborne PhD, Phone: [phone] Performing Lab: see note - [facility] LB UA (CLEAN or CATCH) ART HISTORY PROFESSOR or M ICRO IF IND. Reviewed date:04/05/2024 12:43:55 PM Interpretation: Performing Lab: Notes/Report: [facility] , Color Urine LT. YELLOW YELLOW Clarity Urine CLEAR CLEAR Specific [place] Urine 1.015 1.005-1.025 pH Urine 6.0 5.0-9.0 Protein Urine NEGATIVE NEG/TRACE mg/dL Glucose Urine UA NEGATIVE NEGATIVE mg/dL Bilirubin Urine NEGATIVE NEGATIVE Ketones Urine NEGATIVE NEGATIVE mg/dL Blood Urine NEGATIVE NEGATIVE Nitrite Urine NEGATIVE NEGATIVE Urobilinogen Urine 1.0 0.2-1.0 EU/dL Leukocyte Esterase Urine NEGATIVE NEGATIVE Urine Microscopic Indicated NO Performing Lab: see note ML - [facility] LB Reason For Referral Diagnosis 1 Fracture of metatars al bone (S92.309A) Referral Organization [facility] Referring Provider First Name Davey Referring Provider Last Name Raulito Referring Provider [facility] kizzy Referred Provider Romero Mueller Referred Provider Specialty Orthopedic S urgery Referral Priority Routine Diagnosis 1 Weakness (R53.1) Referral Organization [facility] Referring Provider First Name Davey Referring Provider Last Name Raulito Referring Provider [facility] icishelly Referred Provider [facility], Physical Therap y Referred Provider Specialty Physical The rapist Referral Priority Routine Reason Needs EGD and Colono scopy please! Diagnosis 1 Anemia (D64.9) Referral Organization [facility] Referring Provider First Name Davey Referring Provider Last Name Raulito Referring Provider [facility] kizzy Referred Provider Santos Freeman Referred Provider Specialty General Surg santana Referral Priority Routine Medications Medication SIG (Take, Route, Frequency, Duration) Notes Start Date End Date Status chlordiazePOXIDE HCl 10 MG 1 capsule Orally tid PRN for 7 days needs to last a week 08/15/2024 Active BIPAP -- as directed Active Levothyroxine Sodium 100 MCG 1 tablet in the morning on an empty stomach Orally Once a day for 30 days Active Semaglutide 0.3 mg/0.25mL 0.3 mg/0.25 mL 0.25 mL Subcutaneous Once weekly for 30 days 05/23/2024 Active Protonix 40 MG 1 tablet Orally Once a day for 30 days 10/26/2023 Active Promethazine HCl 25 MG 1 tablet as neede d Orally q6h for 30 days PRN 02/22/2023 Active Doxepin HCl 50 MG 1 capsule at bedtime Orally Once a day for 30 days 05/22/2024 Active valACYclovir HCl 500 MG 1 tablet Orally tid for 10 days 07/20/2024 Active Haloperidol 2 MG 1 tablet Orally thre e times daily for 30 days Active Ventolin HFA 108 (90 Base) MCG/ACT 1 puff as needed Inhalation every 4 hrs for 30 days PRN Active Ondansetron 4 MG 1 tablet on the tong ue and allow to dissolve Orally qid PRN 06/28/2024 Active Cefdinir 300 MG 2 capsule Orally onc e a day for 10 days 07/20/2024 Active Paxil 40 MG 1 tablet in [...] Problem Status W/U Status Risk Notes Problem 267858967 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 Problem Hypoglycemia (255018621) Hypoglycemia, unspecified (E16.2) Active confirmed Problem Dehydration (19147662) Dehydration (E86.0) Active confirmed Problem Palpitations (61007252) Palpitations (R00.2) Active confirmed Problem History of cardiac catheterization (06671148198545) History of cardiac catheterization (V45.89) Active confirmed Problem Obesity (560936662) Obesity (E66.9) Active conf irmed Problem Anxiety (32839944) Anxiety (F41.9) Active confi rmed Problem Edema (98726959) Edema (R60.9) Active confirmed Problem History of cardiac catheterization (56685249200870) H/O cardiac catheterization (V45.89) Active confirmed Problem Anemia (210785778) Anemia (D64.9) Active confir med Problem Dyspnea (144264413) Dyspnea (R06.00) Active con firmed Problem Sleep apnea (60960722) Sleep apnea (G47.30) Active confirmed Problem CVA - Cerebrovascular accident (911661387) CVA (cerebral vascular accident) (I63.9) Active confirmed Problem Insomnia (115513259) Insomnia (G47.00) Active confirmed Problem Hiatal hernia (89904656) Hiatal hernia (K44.9) Active confirmed Problem Hip pain (76426332) Hip pain (M25.559) Active c onfirmed Problem Syncope (658324785) Syncope (R55) Active confir med Problem Vitamin D deficiency (52119905) Vitamin D deficiency (E55.9) Active confirmed Problem Alcohol abuse (35345192) Alcohol abuse (F10.10) Active confirmed Problem Generalized anxiety disorder (75781172) ESTRELLITA (generalized anxiety disorder) (F41.1) Active confirmed Problem Arthralgia (82333418) Arthralgia (M25.50) Active confirmed Problem Pain of right knee region (finding) (439119672170387) Knee pain, right (M25.561) Active confirmed Problem Dysmenorrhea (597641808) Dysmenorrhea (N94.6) Active confirmed Problem Acute bronchitis (24512296) Acute bronchitis (J20.9) Active confirmed Problem Paresthesia (04585485) Paresthesia (R20.2) Active confirmed Problem Dysphagia (54536374) Dysphagia (R13.10) Active confirmed Problem Acquired hypothyroidism (653674832) Acquired hypothyroidism (E03.9) Active confirmed Problem Cellulitis (827223869) Cellulitis (L03.90) Active confirmed Problem Plantar fasciitis (482051568) Plantar fasciitis (M72.2) Active confirmed Problem Esophageal stricture (72040054) Esophageal stricture (K22.2) Active confirmed Problem Skin sensation disturbance (88401738) Arm paresthesia, left (R20.2) Active confirmed Problem Dyshidrotic eczema (734310712) Dyshidrotic eczema (L30.1) Active confirmed Problem Diverticulitis of colon (468042177) Diverticulitis of colon (K57.32) Active confirmed Problem Menometrorrhagia (127104582) Menometrorrhagia (N92.1) Active confirmed Problem Type II diabetes mellitus without complication (413003613) Type 2 diabetes mellitus without complication (E11.9) Active confirmed Problem 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) Active confirmed Problem Chronic lymphocytic thyroiditis (77550521) Chronic lymphocytic thyroiditis (E06.3) Active confirmed Problem Suicidal ideation (4938930) Suicidal ideation (R45.851) Active confirmed Problem Gastro-esophageal reflux disease (201017196) Gastro-esophageal reflux disease (K21.9) Active confirmed Problem Fracture of metatarsal bone (544045083) Fracture of metatarsal bone (S92.309A) Active confirmed Problem Postprocedural states (793030786) Other specified postprocedural states (Z98.890) Active confirmed Problem Moderate dehydration (1938158552272) Dehydration, moderate (E86.0) Active confirmed Problem Follicular thyroid carcinoma (828850949) Follicular thyroid carcinoma (C73) Active confirmed Problem Diabetes mellitus (28378357) Diabetes mellitus (E11.9) Active confirmed Problem Ureteric stone (29390374) Calculus, ureteral (N20.1) Active confirmed Vital Signs Heart Rate 81 /min 07/20/2024 Temperature 99.5 degrees Fahrenheit 07/20/2024 Oximetry 99 % 07/20/2024 Blood pressure diastolic 82 mm Hg 07/20/2024 Height 62.5 in 07/20/2024 Blood pressure systolic 124 mm Hg 07/20/2024 Weight 265.8 lbs 07/20/2024 BMI 47.84 kg/m2 07/20/2024 Procedures Procedure Date Ordered Date Performed Result Body Sit e EGD w/Colonoscopy 07/24/2024 N/A Encounters Encounter Location Date Provider Diagnosis [facility] [address] [place] [address] 12/06/2023 Adrienne Aric Urine abnormality R82.90 ; Loose stools R19.5 and Wellness examination Z00.00 [facility] [address] [place] [address] 05/22/2024 Davey Hoy Palpitations R00.2 ; Insomnia G47.00 ; ESTRELLITA (generalized anxiety disorder) F41.1 and Right foot pain M79.671 [facility] [address] [place] [address] 07/20/2024 Davey Hoy Anemia D64.9 ; Vitam in D deficiency E55.9 ; 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 ; Acute bronchitis J20.9 and Weakness R53.1 [facility] [address] [place] [address] 08/24/2023 Davey Pineda [facility] [address] [place] [address] 09/08/2023 Davey Hoy [facility] [address] [place] [address] 09/23/2023 Davey Hoy Anemia D64.9 ; Weakn ess R53.1 and B12 deficiency E53.8 [place] [facility] [address] [place] [address] 09/28/2023 Davey Hoy Fatigue R53.83 [facility] [address] [place] [address] 10/26/2023 Davey Colemany [facility] [address] [facility] [place] [address] 12/17/2023 Davey Pineda [facility] [address] [place] [address] 01/18/2024 Davey Pineda [facility] [address] [place] [address] 04/03/2024 Davey Pineda [facility] [address] [place] [address] 04/03/2024 Davey Hoy [facility] [address] [place] [address] 05/23/2024 Davey Hoy [facility] [address] [place] [address] 05/23/2024 Davey Hoy [facility] [address] [place] [address] 05/29/2024 Dvaey Hoy Palpitations R00.2 a nd Frequency of micturition R35.0 [facility] [address] [place] [address] 05/30/2024 Davey Hoy [facility] [address] [place] [address] 05/30/2024 Davey Hoy [facility] [address] [place] [address] 06/01/2024 Davey Hoy Palpitations R00.2 [facility] [address] [place] [address] 06/01/2024 Davey Hoy Palpitations R00.2 [facility] [address] [place] [address] 06/05/2024 Davey Hoy [facility] [address] [place] [address] 06/06/2024 Davey Hoy Fracture of metatars al bone S92.309A [facility] [address] [place] [address] 06/07/2024 Davey Hoy Palpitations R00.2 [facility] [address] [place] [address] 06/19/2024 Davey Hoy Palpitations R00.2 [facility] [address] [place] [address] 06/28/2024 Davey Hoy Palpitations R00.2 [facility] [address] [place] [address] 07/04/2024 Davey Hoy [facility] [address] [place] [address] 07/05/2024 Davey Hoy Palpitations R00.2 [facility] [address] [place] [address] 07/05/2024 Davey Hoy Palpitations R00.2 [facility] [address] [facility] [address] 07/11/2024 Davey Hoy [facility] [address] [facility] [place] [address] 2024 Davey Hoy [facility] [address] [facility] [place] [address] 07/14/2024 Davey Hoy Palpitations R00.2 [facility] [address] [facility] [place] [address] 07/23/2024 Davey Hoy Peace's thyroidi tis E06.3 ; Palpitations R00.2 and Anemia D64.9 [facility] [address] [facility] [place] [address] 07/24/2024 Davey Hoy Frequency of micturition R35.0 [facility] [address] [facility] [place] [address] 07/24/2024 Davey Hoy [facility] [address] [facility] [place] [address] 07/24/2024 Davey Hoy Palpitations R00.2 [facility] [address] [facility] [place] [address] 07/24/2024 Davey Hoy Esophageal stricture K22.2 and Diverticulitis of colon K57.32 [facility] [address] [facility] [place] [address] 07/25/2024 Davey Hoy [facility] [address] [facility] [place] [address] 08/03/2024 Davey Hoy Palpitations R00.2 [facility] [address] [facility] [place] [address] 08/09/2024 Dave[address] H[address] [place] [address] 08/15/2024 Davey Hoy Palpitations R00.2 Assessments Encounter Date Diagnosis (ICD [...] - R00.2) 07/14/2024 Palpitations (ICD-10 - R00.2) 07/23/2024 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) 12/06/2023 Urine abnormality (ICD-10 - R82.90) 12/06/2023 Loose stools (ICD-10 - R19.5) 09/28/2023 Fatigue (ICD-10 - R53.83) 05/29/2024 Palpitations (ICD-10 - R00.2) 07/24/2024 Frequency of micturition (ICD-10 - R35.0) 07/24/2024 Palpitations (ICD-10 - R00.2) 07/24/2024 Esophageal stricture (ICD-10 - K22.2) 07/24/2024 Diverticulitis of colon (ICD-10 - K57.32) 08/03/2024 Palpitations (ICD-10 - R00.2) 08/15/2024 Palpitations (ICD-10 - R00.2) 05/29/2024 Frequency of micturition (ICD-10 - R35.0) 12/06/2023 Wellness examination (ICD-10 - Z00.00) requesting labs 07/23/2024 Palpitations (ICD-10 - R00.2) 09/23/2023 B12 deficiency (ICD-10 - E53.8) 07/20/2024 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) 05/22/2024 ESTRELLITA (generalized anxiety disorder) (ICD-10 - F41.1) 05/22/2024 Right foot pain (ICD-10 - M79.671) 07/20/2024 Acute bronchitis (ICD-10 - J20.9) 07/23/2024 Anemia (ICD-10 - D64.9) 07/20/2024 Weakness (ICD-10 - R53.1) Plan Of Treatment Pending Test Test Name Order Date Exercise Stress Nuclear Test 06/28/2023 CMP (COMPLETE METABOLIC PANEL) 4 CMP (COMPLETE METABOLIC PANEL) 4 CMP (COMPLETE METABOLIC PANEL) 4 UA (URINALYSIS, COMPLETE) 12/06/2023 VITAMIN B6 (PRIDOXINE) 09/28/2023 CULTURE, STOOL 12/06/2023 CALCITONIN 06/17/2023 HEMOGLOBIN A1C (GLYCO) 12/06/2023 INSULIN, TOTAL 12/06/2023 IRON, TOTAL 07/20/2024 LIPID PANEL (CHOL/TRIG/HDL/LDL) 12/06/19 24 CBC WITH DIFF 12/06/2023 CBC WITH DIFF 06/07/2023 PT (PROTIME), INR AND PTT (PT/INR AND PT T) 03/31/2023 PT (PROTIME), INR AND PTT (PT/INR AND PT T) 05/13/2023 VITAMIN D, 25 LEVEL (TOTAL) 07/20/2024 MRI Brain w/wo contrast * 06/28/2023 CORTISOL, BLOOD 06/19/2022 Urinalysis Microscopic 02/22/2023 B12/FOLATE 05/18/2023 THIAMIN VITAMIN B1 09/28/2023 EGD w/Colonoscopy 07/24/2024 Urine Culture 12/06/2023 RHEUMATOID PANEL 07/20/2024 RIBOFLAVIN VITAMN B2 09/28/2023 Sleep study - Diagnostic Polysonogram COMPREHENSIVE METABOLIC PROFILE WITH GFR 05/13/2023 OCCULT BLOOD, FECAL, IMMUNOASSAY 024 C PEPTIDE 06/15/2022 Vitamin B7 Biotin 09/28/2023 C DIFF TOX PCR STOOL 12/06/2023 CBC W/AUTO DIFF 09/23/2023 CBC W/AUTO DIFF 03/31/2023 CBC W/AUTO DIFF 05/13/2023 VITAMIN B5 (PANTOTHENIC ACID) 09/28/2023 BLEEDING TIME 05/13/2023 BNP 06/15/2022 BNP 06/07/2023 CBC AUTO DIFF 02/22/2023 CBC AUTO DIFF 06/15/2022 CULTURE URINE 02/22/2023 GLYCOHEMOGLOBIN A1C 06/15/2022 INSULIN 06/15/2022 IRON 12/06/2023 [...] Coverage Start Date Coverage End Date [facility] [place] [employer] [address] [facility] [facility] [address] [place] [address] [phone] [id number] Esme Reyes Self - patient is the [...] Gastro-esophageal reflux disease K21.9 Graves' disease E05.00 Vitamin D deficiency E55.9 Surgical History Surgery Date(Month/Year) lap gastric bypass 2017 Hospitalization History Reason Date(Month/Year) hernia 2017 syncope 2020 ALEN jones 2021
--- OUTSIDE RECORDS SUMMARY | 2024-08-17 13:16 | XMS_ITS | Encounter Summary ---
Author Organization [facility] Address [address] [place] [address] Care Team Providers Care Laboratory Mechanical Technician Name Role Phone Farhat Cabezas MD Primary Care Provider [phone] Farhat Cabezas MD Unavailable [phone] Farhat Cabezas MD Unavailable [phone] Source Comments In the event this information is protected by the Federal Confidentiality of Alcohol and Drug AbusePatient Records regulations: The Federal rules restrict any use of the information to criminally investigate or prosecute any alcohol or drug abuse patient.[facility] Encounter Details Date Type Department Care Team (Late st Contact Info) Description 05/09/2019 Patient Msg Family Medicine [address] [place], [place] [phone] Provider, Ccpiero *Appointment Changes* Social History Tobacco Use Types [...] [facility] Endocrinology [address] [place] [address] Greg Nina APRN.TITLE CHECKER [address] [place] [address] diabetes follow up with me in 3 months virtually 11/20/2024 1:00 PM EDT [facility] Endocrinology [address] [place] [address] Valdez Suarez MD [address] [place] [address] [address] [place], [place] 4823735 follow up in 6 months documented as of this encounter Visit Diagnoses Not on filedocumented in this encounter Care Teams Laboratory Mechanical Technician Relationship Specialty Start Date End Date Farhat Cabezas MD PCP - General Family Medicine 01/13/11 Farhat Cabezas MD Referring Family Medicine 01/08/22 [place] [address] [place] [address] Referring Family Medicine 07/26/24 documented as of this encounter
--- OUTSIDE RECORDS SUMMARY | 2024-08-17 13:16 | XMS_ITS | Encounter Summary ---
Demographics Address [address] [facility] [place] [address] Home Phone Mobile Phone Email Address Preferred Language ENG Marital Status Single Voodoo Affiliation Unknown Race White Ethnic Group Not or Lati no Author Organization [facility] Address [address] [place] [address] Care Team Providers Care Fisheries Director Name Role Phone Farhat Cabezas MD Primary Care Provider [phone] Farhat Cabezas MD Unavailable [phone] Farhat Cabezas MD Unavailable [phone] Source Comments In the event this information is protected by the Federal Confidentiality of Alcohol and Drug AbusePatient Records regulations: The Federal rules restrict any use of the information to criminally investigate or prosecute any alcohol or drug abuse patient.[facility] Encounter Details Date Type Department Care Team (Late st Contact Info) Description 10/23/2020 Patient Msg Pre Anesthesia [address] [place], [place] [phone] Dunia Pickett PA-C [address] [place] [address] Preop Instructions Social History Tobacco Use Types [...] ot on file 01/16/2020 Data from: https://www.neighborhoodatlas.medicine.[facility].edu/. Last address used for calculation Not [...] 9:30 AM EDT [facility] Endocrinology [address] [place] [phone] Greg Nina, MARITZA.PAVING SUPERVISOR [address] [place] [address] diabetes follow up with me in 3 months virtually 11/20/2024 1:00 PM EDT [facility] Endocrinology [address] [place] [address] Valdez Suarez MD [address] [place] [address] [address] [place], [place] 9170735 follow up in 6 months documented as of this encounter Visit Diagnoses Not on filedocumented in this encounter Care Teams Fisheries Director Relationship Specialty Start Date End Date Farhat Cabezas MD PCP - General Family Medicine 01/13/11 Farhat Cabezas MD Referring Family Medicine 01/08/22 Farhat Cabezas MD [facility] [place] [address] Referring Family Medicine 07/26/24 documented as of this encounter
--- OUTSIDE RECORDS SUMMARY | 2024-08-17 13:16 | XMS_ITS | Encounter Summary ---
Demographics Address [address] [place] [address] Home Phone Mobile Phone Email Address Preferred Language ENG Marital Status Single Tenriism Affiliation Unknown Race White Ethnic Group Not or Lati no Author Organization [facility] Address [address] [place] [address] Care Team Providers Care Radial Drill Press Operator For Plastic Name Role Phone Farhat Cabezas MD Primary Care Provider [phone] Farhat Cabezas MD Unavailable [phone] Farhat Cabezas MD Unavailable [phone] Source Comments In the event this information is protected by the Federal Confidentiality of Alcohol and Drug AbusePatient Records regulations: The Federal rules restrict any use of the information to criminally investigate or prosecute any alcohol or drug abuse patient.[facility] Encounter Details Date Type Department Care Team (Late st Contact Info) Description 04/18/2020 Get Medical Advice [facility] REJ [address] [place], [place] [phone] Rachel Yi MD 9509 [place] [address] RE: Test Result Question Social [...] N ot on file 01/16/2020 Data from: https://www.neighborhoodatlas.medicine.[facility]/. Last address used for calculation Not [...] Contact Info) Description 08/30/2024 9:30 AM EDT [facility] Endocrinology [address] [place] [address] Greg Nina APRN.PAPER STACKER [address] [place], [place] [phone] diabetes follow up with me in 3 months virtually 11/20/2024 1:00 PM EDT [facility] Endocrinology [address] [place] [address] Valdez Suarez MD [address] [place] [address] [address] [place], [place] 8796135 follow up in 6 months documented as of this encounter Visit Diagnoses Not on filedocumented in this encounter Care Teams Radial Drill Press Operator For Plastic Relationship Specialty Start Date End Date Farhat Cabezas MD PCP - General Family Medicine 01/13/11 Farhat Cabezas MD Referring Family Medicine 01/08/22 Farhat Cabezas MD [address] [place] [address] Referring Family Medicine 07/26/24 documented as of this encounter
--- OUTSIDE RECORDS SUMMARY | 2024-08-17 13:16 | XMS_ITS | Encounter Summary ---
Demographics Address [address] [place] [address] Home Phone Mobile Phone Email Address Preferred Language ENG Marital Status Single Yazdanism Affiliation Unknown Race White Ethnic Group Not or Lati no Author Organization [facility] Address [address] [place] [address] Care Team Providers Care Manager Knowledge Name Role Phone Farhat Cabezas MD Primary Care Provider [phone] Farhat Cabezas MD Unavailable [phone] Farhat Cabezas MD Unavailable [phone] Source Comments In the event this information is protected by the Federal Confidentiality of Alcohol and Drug AbusePatient Records regulations: The Federal rules restrict any use of the information to criminally investigate or prosecute any alcohol or drug abuse patient.[facility] Encounter Details Date Type Department Care Team (Late st Contact Info) Description 12/18/2019 Get Medical Advice [facility] REJ [address] [place], [place] [phone] Rachel Yi MD 9502 [place] [address] RE: Non-Urgent Medical Question Social [...] AM EDT [facility] Endocrinology [address] [place] [address] Greg Nina APRN.PHARMACY TECHNICIAN PER DIEM [address] [place] [address] diabetes follow up with me in 3 months virtually 11/20/2024 1:00 PM EDT [facility] Endocrinology [address] [place] [address] Valdez Suarez MD [address] [place] [address] [address] [place], [place] 1381835 follow up in 6 months documented as of this encounter Visit Diagnoses Not on filedocumented in this encounter Care Teams Manager Knowledge Relationship Specialty Start Date End Date Farhat Cabezas MD PCP - General Family Medicine 01/13/11 Farhat Cabezas MD Referring Family Medicine 01/08/22 Farhat Cabezas MD [address] [place] [address] Referring Family Medicine 07/26/24 documented as of this encounter
--- OUTSIDE RECORDS SUMMARY | 2024-08-17 13:16 | XMS_ITS | Encounter Summary ---
Demographics Address [address] [place] [address] Home Phone Mobile Phone Email Address [email or web address] .[employer] Preferred Language ENG Marital Status Single Religion Affiliation Unknown Race White Ethnic Group Not or Lati no Author Organization [facility] Address [address] [place] [address] Care Team Providers Care Cardiac Care Unit Nurse Name Role Phone Farhat Cabezas MD Primary Care Provider [phone] Farhat Cabezas MD Unavailable [phone] Farhat Cabezas MD Unavailable [phone] Source Comments In the event this information is protected by the Federal Confidentiality of Alcohol and Drug AbusePatient Records regulations: The Federal rules restrict any use of the information to criminally investigate or prosecute any alcohol or drug abuse patient.[facility] Encounter Details Date Type Department Care Team (Late st Contact Info) Description 11/03/2020 Get Medical Advice Cardiology 5700 [place] [address] Sea Collins DO 5708 [place], [place] 4001253 RE: Visit Follow Up Question Social History [...] N ot on file 01/16/2020 Data from: https://www.neighborhoodatlas.medicine.[facility]/. Last address used for [...] Info) Description 08/30/2024 9:30 AM EDT [facility] Endocrinology [address] [place] [address] Greg Nina APRN.RIB CLOTH KNITTER [address] [place], [place] 0130039 diabetes follow up with me in 3 months virtually 11/20/2024 1:00 PM EDT [facility] Endocrinology [address] [place] [address] Valdez Suarez MD [address] [place] [address] [place] [address] follow up in 6 months documented as of this encounter Visit Diagnoses Not on filedocumented in this encounter Care Teams Cardiac Care Unit Nurse Relationship Specialty Start Date End Date Farhat Cabezas MD PCP - General Family Medicine 01/13/11 Farhat Cabezas MD Referring Family Medicine 01/08/22 Farhat Cabezas MD [address]65 [place] [address] Referring Family Medicine 07/26/24 documented as of this encounter
--- OUTSIDE RECORDS SUMMARY | 2024-08-17 13:16 | XMS_ITS | Encounter Summary ---
Demographics Address [address] [place] [address] Home Phone Mobile Phone Email Address Preferred Language ENG Marital Status Single Jew Affiliation Unknown Race White Ethnic Group Not or Lati no Author Organization [facility] Address [address] [place] [address] Care Team Providers Care Hydrologist Name Role Phone Farhat Cabezas MD Primary Care Provider [phone] Farhat Cabezas MD Unavailable [phone] Farhat Cabezas MD Unavailable [phone] Source Comments In the event this information is protected by the Federal Confidentiality of Alcohol and Drug AbusePatient Records regulations: The Federal rules restrict any use of the information to criminally investigate or prosecute any alcohol or drug abuse patient.[facility] Encounter Details Date Type Department Care Team (Late st Contact Info) Description 03/31/2022 Patient Msg Neurology [address] [place] [phone] Provider, Ccf refills Social History Tobacco Use [...] N ot on file 02/25/2022 Data from: https://www.neighborhoodatlas.[facility]/. Last address used for calculation [address] [facility] 02/25/2022 Comments No Sex and Gender Information [...] Contact Info) Description 08/30/2024 9:30 AM EDT [facility] Endocrinology [address] [place] [address] Greg Nina APRN.NURSE FIRST ASSIST [address] [place] [address] diabetes follow up with me in 3 months virtually 11/20/2024 1:00 PM EDT [facility] Endocrinology [address] [place] [address] Valdez Suarez MD [address] [place] [address] [address] [place], [place] 5566435 follow up in 6 months documented as of this encounter Visit Diagnoses Not on filedocumented in this encounter Care Teams Hydrologist Relationship Specialty Start Date End Date Farhat Cabezas MD PCP - General Family Medicine 01/13/11 Farhat Cabezas MD Referring Family Medicine 01/08/22 Farhat Cabezas MD [address]65 [place] [address] Referring Family Medicine 07/26/24 documented as of this encounter
--- OUTSIDE RECORDS SUMMARY | 2024-08-17 13:16 | XMS_ITS | Encounter Summary ---
Demographics Address [address] [facility] [place] [address] Home Phone Mobile Phone Email Address Preferred Language ENG Marital Status Single Shinto Affiliation Unknown Race White Ethnic Group Not or Lati no Author Organization [facility] Address [address] [place] [address] Care Team Providers Care Cleaning Attendant Name Role Phone Farhat Cabezas MD Primary Care Provider [phone] Farhat Cabezas MD Unavailable [phone] Farhat Cabezas MD Unavailable [phone] Source Comments In the event this information is protected by the Federal Confidentiality of Alcohol and Drug AbusePatient Records regulations: The Federal rules restrict any use of the information to criminally investigate or prosecute any alcohol or drug abuse patient.[facility] Encounter Details Date Type Department Care Team (Late st Contact Info) Description 05/13/2022 Patient Msg Sleep Disorders [address] [place] [address] Mehnaz Serrano APRN.STREET LIGHT INSPECTOR 9503 [place] [address] sleep plan Social History Tobacco Use Types [...] N ot on file 02/25/2022 Data from: https://www.neighborhoodatlas.medicine.[facility]/. Last address used for calculation [address] 02/25/2022 Comments No Sex and Gender [...] Description 08/30/2024 9:30 AM EDT [facility] Endocrinology [address] [place] [address] Greg Nina, MARITZA.STREET LIGHT INSPECTOR [address] [place] [address] diabetes follow up with me in 3 months virtually 11/20/2024 1:00 PM EDT [facility] Endocrinology [address] [place] [address] Valdez Suarez MD [address] [place] [address] [address] [place], [place] 5069935 follow up in 6 months documented as of this encounter Visit Diagnoses Not on filedocumented in this encounter Care Teams Cleaning Attendant Relationship Specialty Start Date End Date Farhat Cabezas MD PCP - General Family Medicine 01/13/11 Farhat Cabezas MD Referring Family Medicine 01/08/22 Farhat Cabezsa MD [address] [place] [address] Referring Family Medicine 07/26/24 documented as of this encounter
--- OUTSIDE RECORDS SUMMARY | 2024-08-17 13:16 | XMS_ITS | Encounter Summary ---
Author Organization [facility] Address [facility] [place] [address] Care Team Providers Care Junior Business Analyst Name Role Phone Farhat Cabezas MD Primary Care Provider [phone] Farhat Cabezas MD Unavailable [phone] Farhat Cabezas MD Unavailable [phone] Source Comments In the event this [...] Get Medical Advice General Surgery BMI PSYL [address] [place], [place] [phone] Graciela Hoyt, PhD [address] [place] [phone] RE: Visit Follow Up Question Social History [...] Info) Description 08/30/2024 9:30 AM EDT [facility] Endocrinology [address] [place] [address] Greg Nina APRN.FRONT DESK AUXILIARY [address] [place] [address] diabetes follow up with me in 3 months virtually 11/20/2024 1:[address] [facility] Endocrinology [address] [place] [address] Valdez Suarez MD [address] [place] [address] [address] [place], [place] 4120635 follow up in 6 months documented as of this encounter Visit Diagnoses Not on filedocumented in this encounter Care Teams Junior Business Analyst Relationship Specialty Start Date End Date Farhat Cabezas MD PCP - General Family Medicine 01/13/11 Farhat Cabezas MD Referring Family Medicine 01/08/22 Farhat Cabezas MD [address] [place] [address] Referring Family Medicine 07/26/24 documented as of this encounter
--- OUTSIDE RECORDS SUMMARY | 2024-08-17 13:16 | XMS_ITS | Encounter Summary ---
Author Organization [facility] Address [address] [place] [address] Care Team Providers Care Electro Plater Name Role Phone Farhat Cabezas MD Primary Care Provider [phone] Farhat Cabezas MD Unavailable [phone] Farhat Cabezas MD Unavailable [phone] Source Comments In the event this information is protected by the Federal Confidentiality of Alcohol and Drug AbusePatient Records regulations: The Federal rules restrict any use of the information to criminally investigate or prosecute any alcohol or drug abuse patient.[facility] Encounter Details Date Type Department Care Team (Late st Contact Info) Description 09/20/2019 Abstract BMI [facility] REJ [address] [place] [address] Rachel Yi MD [address] [place] [address] Social History Tobacco Use Types [...] Contact Info) Description 08/30/2024 9:30 AM EDT [facility] Endocrinology [address] [place] [address] Greg Nina APRN.HOSPICE CLINICAL MANAGER [address] [place] [address] diabetes follow up with me in 3 months virtually 11/20/2024 1:00 PM EDT [facility] Endocrinology [address] [place] [address] Valdez Suarez MD [address] [facility] [address] [place], [place] 468[address] follow up in 6 months documented as of this encounter Visit Diagnoses Not on filedocumented in this encounter Care Teams Electro Plater Relationship Specialty Start Date End Date Farhat Cabezas MD PCP - General Family Medicine 01/13/11 Farhat Cabezas MD Referring Family Medicine 01/08/22 Farhat Cabezas MD [address] [place] [address] Referring Family Medicine 07/26/24 documented as of this encounter
--- OUTSIDE RECORDS SUMMARY | 2024-08-17 13:16 | XMS_ITS | Encounter Summary ---
Demographics Address [address] [place] [address] Home Phone Mobile Phone Email Address Preferred Language ENG Marital Status Single Hindu Affiliation Unknown Race White Ethnic Group Not or Lati no Author Organization [facility] Address [address] [place] [address] Care Team Providers Care Ticket Writer Name Role Phone Farhat Cabezas MD Primary Care Provider [phone] Farhat Cabezas MD Unavailable [phone] Farhat Cabezas MD Unavailable [phone] Source Comments In the event this information is protected by the Federal Confidentiality of Alcohol and Drug AbusePatient Records regulations: The Federal rules restrict any use of the information to criminally investigate or prosecute any alcohol or drug abuse patient.[facility] Encounter Details Date Type Department Care Team (Late st Contact Info) Description 04/09/2020 Get Medical Advice General Surgery 9300 [place] [address] Rachel Yi MD [address]51 [place] [address] RE: Upcoming Appointment Question Social [...] N ot on file 01/16/2020 Data from: https://www.neighborhoodatlas.medicine.[facility]/. Last address used for calculation Not on [...] Contact Info) Description 08/30/2024 9:30 AM EDT [facility] Endocrinology [address] [place] [address] Greg Nina, MARITZA.SLICE CUTTING MACHINE OPERATOR [address] [place] [address] diabetes follow up with me in 3 months virtually 11/20/2024 1:00 PM EDT [facility] Endocrinology [address] [place] [address] Valdez Suarez MD [address] [place] [address] [address] [place], [place] 0361135 follow up in 6 months documented as of this encounter Visit Diagnoses Not on filedocumented in this encounter Care Teams Ticket Writer Relationship Specialty Start Date End Date Farhat Cabezas MD PCP - General Family Medicine 01/13/11 Farhat Cabezas MD Referring Family Medicine 01/08/22 Farhat Cabezas MD [facility] [place] [address] Referring Family Medicine 07/26/24 documented as of this encounter
--- OUTSIDE RECORDS SUMMARY | 2024-08-17 13:16 | XMS_ITS | Encounter Summary ---
Demographics Address [address] [facility] [place] [address] Home Phone Mobile Phone Email Address Preferred Language ENG Marital Status Single Bahai Affiliation Unknown Race White Ethnic Group Not or Lati no Author Organization [facility] Address [address] [place] [address] Care Team Providers Care Student Dean Name Role Phone Farhat Cabezas MD Primary Care Provider [phone] Farhat Cabezas MD Unavailable [phone] Farhat Cabezas MD Unavailable [phone] Source Comments In the event this information is protected by the Federal Confidentiality of Alcohol and Drug AbusePatient Records regulations: The Federal rules restrict any use of the information to criminally investigate or prosecute any alcohol or drug abuse patient.[facility] Encounter Details Date Type Department Care Team (Late st Contact Info) Description 04/29/2022 Get Medical Advice Neurology [address] [place], [place] [phone] Fariha Acevedo MD [address] [place] [address] SLEEP APNEA / DOWNLOAD BI PAP [...] N ot on file 02/25/2022 Data from: https://www.neighborhoodatlas.medicine.[facility]/. Last address used for calculation [...] Carpio RN - 04/29/2022 2:57 PM EDT [employer] message sent * Telephone Encounter - Keshawn Carpio RN - 04/29/2022 2:50 PM EDT Images from the original note were not included. documented in this encounter Plan of Treatment Upcoming Encounters Date Type Department Care Team (Late st Contact Info) Description 08/30/2024 9:30 AM EDT [facility] Endocrinology [address] [place] [address] Greg Nina APRN.CLAIM BENEFIT SPECIALIST [address] [place], [place] 2228339 diabetes follow up with me in 3 months virtually 11/20/2024 1:00 PM EDT [facility] Endocrinology [address] [place] [address] Valdez Suarez MD [address] [place] [address] [address] [place], [place] 8387335 follow up in 6 months documented as of this encounter Visit Diagnoses Not on filedocumented in this encounter Care Teams Student Dean Relationship Specialty Start Date End Date Farhat Cabezas MD PCP - General Family Medicine 01/13/11 Farhat Cabezas MD Referring Family Medicine 01/08/22 Farhat Cabezas MD [address] [place] [address] Referring Family Medicine 07/26/24 documented as of this encounter
--- OUTSIDE RECORDS SUMMARY | 2024-08-17 13:16 | XMS_ITS | Encounter Summary ---
Demographics Address [address] [place] [address] Home Phone Mobile Phone Email Address Preferred Language ENG Marital Status Single Samaritan Affiliation Unknown Race White Ethnic Group Not or Lati no Author Organization [facility] Address [address] [place] [address] Care Team Providers Care Critical Power Install Technician Name Role Phone Farhat Cabezas MD Primary Care Provider [phone] Farhat Cabezas MD Unavailable [phone] Farhat Cabezas MD Unavailable [phone] Source Comments In the event this information is protected by the Federal Confidentiality of Alcohol and Drug AbusePatient Records regulations: The Federal rules restrict any use of the information to criminally investigate or prosecute any alcohol or drug abuse patient.[facility] Encounter Details Date Type Department Care Team (Late st Contact Info) Description 11/04/2020 Patient [facility] Wellness [address] [place] [phone] Mustapha Branch MD [address] [place] [address] Comment Social History Tobacco Use [...] on file 01/16/2020 Data from: https://www.neighborhoodatlas.medicine.[facility]/. Last address used for calculation Not on [...] EDT [facility] Endocrinology [address] [place] [address] Greg Nina APRN.REJECT OPENER AND FILLER [address] [place] [address] diabetes follow up with me in 3 months virtually 11/20/2024 1:00 PM EDT [facility] Endocrinology [address] [place] [address] Valdez Suarez MD [address] [place] [address] [address] [place], [place] [phone] follow up in 6 months documented as of this encounter Visit Diagnoses Not on filedocumented in this encounter Care Teams Critical Power Install Technician Relationship Specialty Start Date End Date Farhat Cabezas MD PCP - General Family Medicine 01/13/11 Farhat Cabezas MD Referring Family Medicine 01/08/22 Farhat Cabezas MD [address] [place] [address] Referring Family Medicine 07/26/24 documented as of this encounter
--- OUTSIDE RECORDS SUMMARY | 2024-08-17 13:16 | XMS_ITS | Encounter Summary ---
Author Organization [facility] Address [address] [place] [address] Care Team Providers Care Green Marketing Analyst Name Role Phone Farhat Cabezas MD Primary Care Provider [phone] Farhat Cabezas MD Unavailable [phone] Farhat Cabezas MD Unavailable [phone] Source Comments In the event this information is protected by the Federal Confidentiality of Alcohol and Drug AbusePatient Records regulations: The Federal rules restrict any use of the information to criminally investigate or prosecute any alcohol or drug abuse patient.[facility] Encounter Details Date Type Department Care Team (Late st Contact Info) Description 10/12/2019 Patient Msg General Surgery BMI PSYL [address] [place], [place] [phone] Graciela Hoyt, PhD [address] [phone] OCD specialists Social History Tobacco Use Types [...] Contact Info) Description 08/30/2024 9:30 AM EDT [facility] Endocrinology [address] [place] [address] Greg Nina APRN.WOOD FLOORING SPECIALIST [address] [place] [address] diabetes follow up with me in 3 months virtually 11/20/2024 1:00 PM EDT [facility] Endocrinology [address] [place] [address] Valdez Suarez MD [address] [place] [address] [address] [place], [place] [phone] follow up in 6 months documented as of this encounter Visit Diagnoses Not on filedocumented in this encounter Care Teams Green Marketing Analyst Relationship Specialty Start Date End Date Farhat Cabezas MD PCP - General Family Medicine 01/13/11 Farhat Cabezas MD Referring Family Medicine 01/08/22 [place] [address] [place] [address] Referring Family Medicine 07/26/24 documented as of this encounter
--- OUTSIDE RECORDS SUMMARY | 2024-08-17 13:16 | XMS_ITS | Encounter Summary ---
Demographics Address [address] [place] [address] Home Phone Mobile Phone Email Address [email or web address] Preferred Language ENG Marital Status Single Confucianist Affiliation Unknown Race White Ethnic Group Not or Lati no Author Organization [facility] Address [address] [place] [address] Care Team Providers Care Trim And Burr Operator Name Role Phone Farhat Cabezas MD Primary Care Provider [phone] Farhat Cabeazs MD Unavailable [phone] Farhat Cabezas MD Unavailable [phone] Source Comments In the event this information is protected by the Federal Confidentiality of Alcohol and Drug AbusePatient Records regulations: The Federal rules restrict any use of the information to criminally investigate or prosecute any alcohol or drug abuse patient.[facility] Encounter Details Date Type Department Care Team (Late st Contact Info) Description 12/18/2019 Get Medical Advice [facility] REJ [address] [place], [place] [phone] Rachel Yi MD [address] [place] [address] RE: Visit Follow Up Question [...] Contact Info) Description 08/30/2024 9:30 AM EDT [facility] Endocrinology [address] [place] [address] Greg Nina APRN.CUSTOMER CONTACT SPECIALIST [address] [place] [address] diabetes follow up with me in 3 months virtually 11/20/2024 1:00 PM EDT [facility] Endocrinology [address] [place] [address] Valdez Suarez MD [address] [place] [address] [address] [place], [place] 1189435 follow up in 6 months documented as of this encounter Visit Diagnoses Not on filedocumented in this encounter Care Teams Trim And Burr Operator Relationship Specialty Start Date End Date Farhat Cabezas MD PCP - General Family Medicine 01/13/11 Farhat Cabezas MD Referring Family Medicine 01/08/22 Farhat Cabezas MD [address] [place] [address] Referring Family Medicine 07/26/24 documented as of this encounter
--- OUTSIDE RECORDS SUMMARY | 2024-08-17 13:16 | XMS_ITS | Encounter Summary ---
Author Organization [facility] Address [address] [place] [address] Care Team Providers Care Vp Business Development Name Role Phone Farhat Cabezas MD Primary Care Provider [phone] Farhat Cabezas MD Unavailable [phone] Farhat Cabezas MD Unavailable [phone] Source Comments In the event this information is protected by the Federal Confidentiality of Alcohol and Drug AbusePatient Records regulations: The Federal rules restrict any use of the information to criminally investigate or prosecute any alcohol or drug abuse patient.[facility] Encounter Details Date Type Department Care Team (Late st Contact Info) Description 06/14/2019 Patient Msg BMI [facility] REJ [address] [place], [place] [phone] Rachel Yi MD 9[address] [place] [address] Bariatric Labs Social History Tobacco Use [...] [facility] Endocrinology [address] [place] [address] Greg Nina APRN.INSPECTOR WIRE ROPE [address] [place] [address] diabetes follow up with me in 3 months virtually 11/20/2024 1:00 PM EDT [facility] Endocrinology [address] [place] [address] Valdez Suarez MD [address] [place] [address] [address] [place], [place] 0145335 follow up in 6 months documented as of this encounter Visit Diagnoses Not on filedocumented in this encounter Care Teams Vp Business Development Relationship Specialty Start Date End Date Farhat Cabezas MD PCP - General Family Medicine 01/13/11 Farhat Cabezas MD Referring Family Medicine 01/08/22 [place] [address] [place] [address] Referring Family Medicine 07/26/24 documented as of this encounter
--- OUTSIDE RECORDS SUMMARY | 2024-08-17 13:16 | XMS_ITS | Encounter Summary ---
Demographics Address [address] [facility] [address] Home Phone Mobile Phone Email Address Preferred Language ENG Marital Status Single Uatsdin Affiliation Unknown Race White Ethnic Group Not or Lati no Author Organization [facility] Address [address] [place] [address] Care Team Providers Care On Site Services Specialist Name Role Phone Farhat Cabezas MD Primary Care Provider [phone] Farhat Cabezas MD Unavailable [phone] Farhat Cabezas MD Unavailable [phone] Source Comments In the event this information is protected by the Federal Confidentiality of Alcohol and Drug AbusePatient Records regulations: The Federal rules restrict any use of the information to criminally investigate or prosecute any alcohol or drug abuse patient.[facility] Encounter Details Date Type Department Care Team (Late st Contact Info) Description 04/14/2023 Get Medical Advice Endocrinology [address] [place] [address] Vinicius Márquez, GROUP FITNESS MANAGER.ECOMMERCE MANAGER [address] [address] [place] [address] PAIN POST EATING, VOMITTING Social History Tobacco [...] is lower risk 2 12/21/2022 Data from: https://www.neighborhoodatlas.medicine.[facility]/. Last address used for calculation [...] 9:30 AM EDT [facility] Endocrinology [address] [place] [address] Greg Nina, MARITZA.ECOMMERCE MANAGER [address] [place] [address] diabetes follow up with me in 3 months virtually 11/20/2024 1:00 PM EDT [facility] Endocrinology [address] [place] [address] Valdez Suarez MD [address] [place] [address] [place], [place] 8552335 follow up in 6 months documented as of this encounter Visit Diagnoses Not on filedocumented in this encounter Care Teams On Site Services Specialist Relationship Specialty Start Date End Date Farhat Cabezas MD PCP - General Family Medicine 01/13/11 Farhat Cabezas MD Referring Family Medicine 01/08/22 [place] [address] [place] [address] Referring Family Medicine 07/26/24 documented as of this encounter
--- OUTSIDE RECORDS SUMMARY | 2024-08-17 13:16 | XMS_ITS | Encounter Summary ---
Demographics Address [address] [facility] [place] [address] Home Phone Mobile Phone Email Address Preferred Language ENG Marital Status Single Sabianism Affiliation Unknown Race White Ethnic Group Not or Lati no Author Organization [facility] Address [address] [place] [address] Care Team Providers Care Fire Prevention Specialist Name Role Phone Farhat Cabezas MD Primary Care Provider [phone] Farhat Cabezas MD Unavailable [phone] Farhat Cabezas MD Unavailable [phone] Source Comments In the event this information is protected by the Federal Confidentiality of Alcohol and Drug AbusePatient Records regulations: The Federal rules restrict any use of the information to criminally investigate or prosecute any alcohol or drug abuse patient.[facility] Encounter Details Date Type Department Care Team (Late st Contact Info) Description 01/22/2022 Patient Msg Endocrinology [address] [place] [address] Valdez Suarez MD [address] [place] [address] [place] [address] labs and appointment Social History [...] N ot on file 07/19/2021 Data from: https://www.neighborhoodatlas.medicine.[facility]/. Last address used for calculation 102 [...] AM EDT [facility] Endocrinology [address] [place] [address] Greg Nina APRN.ROUTE DRIVER SALESPERSON [address] [place], [place] 5830939 diabetes follow up with me in 3 months virtually 11/20/2024 1:00 PM EDT [facility] Endocrinology [address] [place] [address] Valdez Suarez MD [address] [place] [address] [address] [place], [place] 3161835 follow up in 6 months documented as of this encounter Visit Diagnoses Not on filedocumented in this encounter Care Teams Fire Prevention Specialist Relationship Specialty Start Date End Date Farhat Cabezas MD PCP - General Family Medicine 01/13/11 Farhat Cabezas MD Referring Family Medicine 01/08/22 Farhat Cabezas MD [address] [place] [address] Referring Family Medicine 07/26/24 documented as of this encounter
--- OUTSIDE RECORDS SUMMARY | 2024-08-17 13:16 | XMS_ITS | Encounter Summary ---
Author Organization [facility] Address [address] [place] [address] Care Team Providers Care Roll Plugger Machine Operator Name Role Phone Farhat Cabezas MD Primary Care Provider [phone] Farhat Cabezas MD Unavailable [phone] Farhat Cabezas MD Unavailable [phone] Source Comments In the event this information is protected by the Federal Confidentiality of Alcohol and Drug AbusePatient Records regulations: The Federal rules restrict any use of the information to criminally investigate or prosecute any alcohol or drug abuse patient.[facility] Encounter Details Date Type Department Care Team (Late st Contact Info) Description 10/05/2019 Patient Msg Family Medicine [address] [place], [place] [phone] Provider, Ccf Appointments Requested Social History Tobacco [...] Contact Info) Description 08/30/2024 9:30 AM EDT [facility] Endocrinology [address] [place] [address] Greg Nina APRN.RESIDENTIAL CHILD CARE COUNSELOR [address] [place] [address] diabetes follow up with me in 3 months virtually 11/20/2024 1:00 PM EDT [facility] Endocrinology [address] [place] [address] Valdez Suarez MD [address] [place] [address] [address] [place], [place] 4854535 follow up in 6 months documented as of this encounter Visit Diagnoses Not on filedocumented in this encounter Care Teams Roll Plugger Machine Operator Relationship Specialty Start Date End Date Farhat Cabezas MD PCP - General Family Medicine 01/13/11 Farhat Cabezas MD Referring Family Medicine 01/08/22 Farhat Cabezas MD [address] [place] [address] Referring Family Medicine 07/26/24 documented as of this encounter
--- OUTSIDE RECORDS SUMMARY | 2024-08-17 13:16 | XMS_ITS | Encounter Summary ---
Author Organization [facility] Address [facility] [place] [address] Care Team Providers Care Film Reader Name Role Phone Farhat Cabezas MD Primary Care Provider [phone] Farhat Cabezas MD Unavailable [phone] Farhat Cabezas MD Unavailable [phone] Source Comments In the event this information is protected by the Federal Confidentiality of Alcohol and Drug AbusePatient Records regulations: The Federal rules restrict any use of the information to criminally investigate or prosecute any alcohol or drug abuse patient.[facility] Encounter Details Date Type Department Care Team (Late st Contact Info) Description 10/09/2019 Get Medical Advice General Surgery BMI PSYL [address] [place], [place] [phone] Graciela Hoyt, PhD [address] [phone] RE: Upcoming Appointment Question Social History Tobacco [...] 9:30 AM EDT [facility] Endocrinology [address] [place] [address] Greg Nina APRN.CONCRETE BUILDING ASSEMBLER [address] [place] [address] diabetes follow up with me in 3 months virtually 11/20/2024 1:00 PM EDT [facility] Endocrinology [address] [place] [address] Valdez Suarez MD [address] [place] [address] [place] [address] follow up in 6 months documented as of this encounter Visit Diagnoses Not on filedocumented in this encounter Care Teams Film Reader Relationship Specialty Start Date End Date Farhat Cabezas MD PCP - General Family Medicine 01/13/11 Farhat Cabezas MD Referring Family Medicine 01/08/22 Farhat Cabezas MD [address] [place] [address] Referring Family Medicine 07/26/24 documented as of this encounter
--- OUTSIDE RECORDS SUMMARY | 2024-08-17 13:16 | XMS_ITS | Encounter Summary ---
Demographics Address [address] [facility] [place] [address] Home Phone Mobile Phone Email Address Preferred Language ENG Marital Status Single Baptist Affiliation Unknown Race White Ethnic Group Not or Lati no Author Organization [facility] Address [address] [place] [address] Care Team Providers Care Masonry Teacher Name Role Phone Farhat Cabezas MD Primary Care Provider [phone] Farhat Cabezas MD Unavailable [phone] Farhat Cabezas MD Unavailable [phone] Source Comments In the event this information is protected by the Federal Confidentiality of Alcohol and Drug AbusePatient Records regulations: The Federal rules restrict any use of the information to criminally investigate or prosecute any alcohol or drug abuse patient.[facility] Encounter Details Date Type Department Care Team (Late st Contact Info) Description 10/27/2021 Get Medical Advice Neurology [address] [place] [address] Mahogany Reyes, MOTOR COACH TOUR OPERATOR.SORTER UPHOLSTERY PARTS [address] [place] [address] Med refill Social History Tobacco [...] N ot on file 07/19/2021 Data from: https://www.neighborhoodatlas.medicine.[facility]/. Last address used for calculation [...] Cerda RN - 11/19/2021 8:06 AM EDT [employer] message sent * Telephone Encounter - Mahogany Reyes APRN.SORTER UPHOLSTERY PARTS - 11/10/2021 11:59 AM EDT Order completed. PDMP website checked and validated. All prescriptions have been APPROPRIATELY filled. No suspiciousactivity was identified. 11/10/2021 by Mahogany Reyes APRN.SORTER UPHOLSTERY PARTS * Telephone Encounter - Latasha Cerda RN - 11/10/2021 11:49 AM EDT Yosvany 03/20/21 w/ MOTOR COACH TOUR OPERATOR Fov 12/17/21 w/ MOTOR COACH TOUR OPERATOR My Chart message sent to patient to [...] BiPAP 12/8 cm H20. - Follow-up with MOTOR COACH TOUR OPERATOR for in person visit as this is a requirement when receiving controlled medications. Mahogany Reyes APRN.SORTER UPHOLSTERY PARTS * Telephone Encounter - Latasha Cerda RN - 10/29/2021 1:48 PM EDT MyChart message sent * Telephone Encounter - Mahogany Reyes APRN.CNP - 10/28/2021 11:07 AM EDT Images from the original note were not included. I do not understand the problem. Zaleplon 10 mg was filled on 10/11/21 and 5 mg was filled on 10/01/21. documented in this encounter Plan of Treatment Upcoming Encounters Date Type Department Care Team (Late st Contact Info) Description 08/30/2024 9:30 AM EDT [facility] Endocrinology [address] [place] [phone] Greg Nina APRN.SORTER UPHOLSTERY PARTS [address] [place] [address] diabetes follow up with me in 3 months virtually 11/20/2024 1:00 PM EDT [facility] Endocrinology [address] [place] [address] Valdez Suarez MD [address] [place] [address] [address] [place], [place] 9792835 follow up in 6 months documented as of this encounter Visit Diagnoses Diagnosis Other insomnia documented in this encounter Care Teams Masonry Teacher Relationship Specialty Start Date End Date Farhat Cabezas MD PCP - General Family Medicine 01/13/11 Farhat Cabezas MD Referring Family Medicine 01/08/22 Farhat Cabezas MD [address] [place] [address] Referring Family Medicine 07/26/24 documented as of this encounter
--- OUTSIDE RECORDS SUMMARY | 2024-08-17 13:16 | XMS_ITS | Encounter Summary ---
Demographics Address [address] [facility] [place] [address] Home Phone Mobile Phone Email Address Preferred Language ENG Marital Status Single Alevism Affiliation Unknown Race White Ethnic Group Not or Lati no Author Organization [facility] Address [address] [place] [address] Care Team Providers Care Rn Access Name Role Phone Farhat Cabezas MD Primary Care Provider [phone] Farhat Cabezas MD Unavailable [phone] Farhat Cabezas MD Unavailable [phone] Source Comments In the event this information is protected by the Federal Confidentiality of Alcohol and Drug AbusePatient Records regulations: The Federal rules restrict any use of the information to criminally investigate or prosecute any alcohol or drug abuse patient.[facility] Encounter Details Date Type Department Care Team (Late st Contact Info) Description 12/12/2021 Get Medical Advice Neurology [address] [place] [address] Mahogany Reyes, TRUMPET TEACHER.PROCESS DEVELOPMENT ENGINEER [address] [place] [address] Refill 10mg Social History Tobacco [...] N ot on file 07/19/2021 Data from: https://www.neighborhoodatlas.medicine.[facility]/. Last address used for [...] Cerda RN - 12/12/2021 2:33 PM EDT [employer] message sent documented in this encounter Plan of Treatment Upcoming Encounters Date Type Department Care Team (Late st Contact Info) Description 08/30/2024 9:30 AM EDT [facility] Endocrinology [address] [place] [address] Greg Nina APRN.PROCESS DEVELOPMENT ENGINEER [address] [place] [address] diabetes follow up with me in 3 months virtually 11/20/2024 1:00 PM EDT [facility] Endocrinology [address] [place] [address] Valdez Suarez MD [address] [place] [address] [address] [place], [place] 9990635 follow up in 6 months documented as of this encounter Visit Diagnoses Not on filedocumented in this encounter Care Teams Rn Access Relationship Specialty Start Date End Date Farhat Cabezas MD PCP - General Family Medicine 01/13/11 Farhat Cabezas MD Referring Family Medicine 01/08/22 Farhat Cabezas MD [address] [place] [address] Referring Family Medicine 07/26/24 documented as of this encounter
--- OUTSIDE RECORDS SUMMARY | 2024-08-17 13:16 | XMS_ITS | Encounter Summary ---
Demographics Address [address] [facility] [place] [address] Home Phone Mobile Phone Email Address Preferred Language ENG Marital Status Single Orthodox Affiliation Unknown Race White Ethnic Group Not or Lati no Author Organization [facility] Address [address] [place] [address] Care Team Providers Care Pathology Laboratory Aide Name Role Phone Farhat Cabezas MD Primary Care Provider [phone] Farhat Cabezas MD Unavailable [phone] Farhat Cabezas MD Unavailable [phone] Source Comments In the event this information is protected by the Federal Confidentiality of Alcohol and Drug AbusePatient Records regulations: The Federal rules restrict any use of the information to criminally investigate or prosecute any alcohol or drug abuse patient.[facility] Encounter Details Date Type Department Care Team (Late st Contact Info) Description 10/22/2020 [address] [facility] [address] [place] [phone] Provider, Ccf Referral- WELLNESS CONSULT Social History [...] N ot on file 01/16/2020 Data from: https://www.regional medical centeratlas.[facility]/. Last address used for calculation [...] 08/30/2024 9:30 AM EDT [facility] Endocrinology [address] [place] [address] Greg Nina APRN.CONSUMER PRODUCT ADVISOR [address] [place] [address] diabetes follow up with me in 3 months virtually 11/20/2024 1:00 PM EDT [facility] Endocrinology [address] [place] [address] Valdez Suarez MD [address] [place] [address] [address] [place], [place] 6487135 follow up in 6 months documented as of this encounter Visit Diagnoses Not on filedocumented in this encounter Care Teams Pathology Laboratory Aide Relationship Specialty Start Date End Date Farhat Cabezas MD PCP - General Family Medicine 01/13/11 Farhat Cabezas MD Referring Family Medicine 01/08/22 [place] [address] [place] [address] Referring Family Medicine 07/26/24 documented as of this encounter
--- OUTSIDE RECORDS SUMMARY | 2024-08-17 13:16 | XMS_ITS | Encounter Summary ---
Author Organization [facility] Address [address] [place] [address] Care Team Providers Care Concrete Mixer Loader Truck Mounted Name Role Phone Farhat Cabezas MD Primary Care Provider [phone] Farhat Cabezas MD Unavailable [phone] Farhat Cabezas MD Unavailable [phone] Source Comments In the event this information is protected by the Federal Confidentiality of Alcohol and Drug AbusePatient Records regulations: The Federal rules restrict any use of the information to criminally investigate or prosecute any alcohol or drug abuse patient.[facility] Encounter Details Date Type Department Care Team (Late st Contact Info) Description 08/05/2019 Patient Msg Family Medicine [address] [place], [place] [id number] Provider, Ccf Appointment Needed! Social History Tobacco [...] Description 08/30/2024 9:30 AM EDT [facility] Endocrinology [address] [place] [address] Greg Nina APRN.CABANA ATTENDANT [address] [place] [address] diabetes follow up with me in 3 months virtually 11/20/2024 1:00 PM EDT [facility] Endocrinology [address] [place] [address] Valdez Suarez MD [address] [place] [address] [address] [place], [place] 1960[address] follow up in 6 months documented as of this encounter Visit Diagnoses Not on filedocumented in this encounter Care Teams Concrete Mixer Loader Truck Mounted Relationship Specialty Start Date End Date Farhat Cabezas MD PCP - General Family Medicine 01/13/11 Farhat Cabezas MD Referring Family Medicine 01/08/22 Farhat Cabezas MD [facility]5 [place] [address] Referring Family Medicine 07/26/24 documented as of this encounter
[2024-08-17 13:17] VITALS: BP 148/100; PULSE 86; TEMP 36.8; O2SAT 95; BMI 100.8
--- OUTSIDE RECORDS SUMMARY | 2024-08-17 13:17 | XMS_ITS | Encounter Summary ---
Author Organization [facility] Address [address] [place] [address] Care Team Providers Care Artificial Pearl Maker Name Role Phone Farhat Cabezas MD Primary Care Provider [phone] Farhat Cabezas MD Unavailable [phone] Farhat Cabezas MD Unavailable [phone] Source Comments In the event this information is protected by the Federal Confidentiality of Alcohol and Drug AbusePatient Records regulations: The Federal rules restrict any use of the information to criminally investigate or prosecute any alcohol or drug abuse patient.[facility] Encounter Details Date Type Department Care Team (Late st Contact Info) Description 03/14/2020 Patient Msg Family Medicine [address] [place], [place] [phone] Provider, Ccf Appointment Request Social History Tobacco [...] on file 01/16/2020 Data from: https://www.neighborhoodatlas.[facility]/. Last address used for [...] Description 08/30/2024 9:30 AM EDT [facility] Endocrinology [address] [place] [address] Greg Nina APRN.SPACE PHYSICIST [address] [place] [address] diabetes follow up with me in 3 months virtually 11/20/2024 1:00 PM EDT [facility] Endocrinology [address] [place] [address] Valdez Suarez MD [address] [place] [address] [address] [place], [place] 3707635 follow up in 6 months documented as of this encounter Visit Diagnoses Not on filedocumented in this encounter Care Teams Artificial Pearl Maker Relationship Specialty Start Date End Date Farhat Cabezas MD PCP - General Family Medicine 01/13/11 Farhat Cabezas MD Referring Family Medicine 01/08/22 Farhat Cabezas MD [address] [place] [address] Referring Family Medicine 07/26/24 documented as of this encounter
--- OUTSIDE RECORDS SUMMARY | 2024-08-17 13:17 | XMS_ITS | Encounter Summary ---
Demographics Address [address] [facility] [place] [address] Home Phone Mobile Phone Email Address Preferred Language ENG Marital Status Single Adventism Affiliation Unknown Race White Ethnic Group Not or Lati no Author Organization [facility] Address [address] [place] [address] Care Team Providers Care Organ Assembler Name Role Phone Farhat Cabezas MD Primary Care Provider [phone] Farhat Cabezas MD Unavailable [phone] Farhat Cabezas MD Unavailable [phone] Source Comments In the event this information is protected by the Federal Confidentiality of Alcohol and Drug AbusePatient Records regulations: The Federal rules restrict any use of the information to criminally investigate or prosecute any alcohol or drug abuse patient.[facility] Encounter Details Date Type Department Care Team (Late st Contact Info) Description 05/26/2016 Get Medical Advice General Surgery [address] [place] [address] Marlin Chao (Hist)MD [address] [place] [address] RE: Non-Urgent Medical Question Social [...] [facility] Endocrinology [address] [place] [address] Greg Nina APRN.CUSTOM CLOTHIER [address] [place], [place] [phone] diabetes follow up with me in 3 months virtually 11/20/2024 1:00 PM EDT [facility] Endocrinology [address] [place] [address] Valdez Suarez MD [address] [place] [address] [address] [place], [place] 1781535 follow up in 6 months documented as of this encounter Visit Diagnoses Not on filedocumented in this encounter Care Teams Organ Assembler Relationship Specialty Start Date End Date Farhat Cabezas MD PCP - General Family Medicine 01/13/11 Farhat Cabezas MD Referring Family Medicine 01/08/22 Farhat Cabezas MD [address] [place] [address] Referring Family Medicine 07/26/24 documented as of this encounter
--- OUTSIDE RECORDS SUMMARY | 2024-08-17 13:17 | XMS_ITS | Encounter Summary ---
Demographics Address [address] [place] [address] Home Phone Mobile Phone Email Address Preferred Language ENG Marital Status Single Sikhism Affiliation Unknown Race White Ethnic Group Not or Lati no Author Organization [facility] Address [address] [place] [address] Care Team Providers Care Vocational Examiner Name Role Phone Farhat Cabezas MD Primary Care Provider [phone] Farhat Cabezas MD Unavailable [phone] Farhat Cabezas MD Unavailable [phone] Source Comments In the event this information is protected by the Federal Confidentiality of Alcohol and Drug AbusePatient Records regulations: The Federal rules restrict any use of the information to criminally investigate or prosecute any alcohol or drug abuse patient.[facility] Encounter Details Date Type Department Care Team (Late st Contact Info) Description 08/17/2016 Get Medical Advice Rheumatology [address] [place] [address] Zabrina Culver MD [address] [place], [place] [phone] RE: Upcoming Appointment Question Social History Tobacco [...] 9:30 AM EDT [facility] Endocrinology [address] [place] [address] Greg Nina APRN.MECHANICAL EQUIPMENT TEST ENGINEER [address] [place], [place] [phone] diabetes follow up with me in 3 months virtually 11/20/2024 1:00 PM EDT [facility] Endocrinology [address] [place] [address] Valdez Suarez MD [address] [place] [address] [address] [place], [place] 0314735 follow up in 6 months documented as of this encounter Visit Diagnoses Not on filedocumented in this encounter Care Teams Vocational Examiner Relationship Specialty Start Date End Date Farhat Cabezas MD PCP - General Family Medicine 01/13/11 Farhat Cabezas MD Referring Family Medicine 01/08/22 Farhat Cabezas MD [address] [place] [address] Referring Family Medicine 07/26/24 documented as of this encounter
--- OUTSIDE RECORDS SUMMARY | 2024-08-17 13:17 | XMS_ITS | Encounter Summary ---
Demographics Address [address] [facility] [place] [address] Home Phone Mobile Phone Email Address Preferred Language ENG Marital Status Single Faith Affiliation Unknown Race White Ethnic Group Not or Lati no Author Organization [facility] Address [facility] [place] [address] Care Team Providers Care Liner Checker Name Role Phone Farhat Cabezas MD Primary Care Provider [phone] Farhat Cabezas MD Unavailable [phone] Farhat Cabezas MD Unavailable [phone] Source Comments In the event this information is protected by the Federal Confidentiality of Alcohol and Drug AbusePatient Records regulations: The Federal rules restrict any use of the information to criminally investigate or prosecute any alcohol or drug abuse patient.[facility] Encounter Details Date Type Department Care Team (Late st Contact Info) Description 08/25/2023 Patient Msg Neurology [address] [place] [phone] Thaddeus Diggs MD [address] [place] [address] Appointment Request Social History Tobacco Use [...] is lower risk 2 12/21/2022 Data from: https://www.neighborhoodatlas.medicine.[facility]/. Last address used [...] Contact Info) Description 08/30/2024 9:30 AM EDT [facility] Endocrinology [address] [place] [address] Greg Nina, MARITZA.GAUGE AND WEIGH MACHINE ADJUSTER [address] [place] [address] diabetes follow up with me in 3 months virtually 11/20/2024 1:00 PM EDT [facility] Endocrinology [address] [place] [address] Valdez Suarez MD [address] [place] [address] [address] [place], [place] 9083835 follow up in 6 months documented as of this encounter Visit Diagnoses Not on filedocumented in this encounter Care Teams Liner Checker Relationship Specialty Start Date End Date Farhat Cabezas MD PCP - General Family Medicine 01/13/11 Farhat Cabezas MD Referring Family Medicine 01/08/22 [place] [address] [place] [address] Referring Family Medicine 07/26/24 documented as of this encounter
--- OUTSIDE RECORDS SUMMARY | 2024-08-17 13:17 | XMS_ITS | Encounter Summary ---
Demographics Address [address] [place] [address] Home Phone Mobile Phone Email Address Preferred Language ENG Marital Status Single Restorationist Affiliation Unknown Race White Ethnic Group Not or Lati no Author Organization [facility] Address [address] [place] [address] Care Team Providers Care Counter Top Assembler Name Role Phone Farhat Cabezas MD Primary Care Provider [phone] Farhat Cabezas MD Unavailable [phone] Farhat Cabezas MD Unavailable [phone] Source Comments In the event this information is protected by the Federal Confidentiality of Alcohol and Drug AbusePatient Records regulations: The Federal rules restrict any use of the information to criminally investigate or prosecute any alcohol or drug abuse patient.[facility] Encounter Details Date Type Department Care Team (Late st Contact Info) Description 05/28/2023 Patient Msg Endocrinology [address] [facility] [place] [address] Valdez Suarez MD [address] [place] [address] [place] [address] Appointment Request Social History Tobacco Use [...] is lower risk 2 12/21/2022 Data from: https://www.neighborhoodatlas.medicine.[facility]/. Last address used for [...] 08/30/2024 9:30 AM EDT [facility] Endocrinology [address] [place] [address] Greg Nina, TRUCK REPAIR SUPERVISOR.[employer] SPECIAL EDUCATION TEACHER [address] [place], [place] 5080739 diabetes follow up with me in 3 months virtually 11/20/2024 1:00 PM EDT [facility] Endocrinology [address] [place] [address] Valdez Suarez MD [address] [place] [address] [address] [place], [place] 9766435 follow up in 6 months documented as of this encounter Visit Diagnoses Not on filedocumented in this encounter Care Teams Counter Top Assembler Relationship Specialty Start Date End Date Farhat Cabezas MD PCP - General Family Medicine 01/13/11 Farhat Cabezas MD Referring Family Medicine 01/08/22 Farhat Cabezas MD [address] [place] [address] Referring Family Medicine 07/26/24 documented as of this encounter
--- OUTSIDE RECORDS SUMMARY | 2024-08-17 13:17 | XMS_ITS | Encounter Summary ---
Demographics Address [address] [place] [address] Home Phone Mobile Phone Email Address Preferred Language ENG Marital Status Single Rastafarian Affiliation Unknown Race White Ethnic Group Not or Lati no Author Organization [facility] Address [facility] [place] [address] Care Team Providers Care Shrimp Pond Laborer Name Role Phone Farhat Cabezas MD Primary Care Provider [phone] Farhat Cabezas MD Unavailable [phone] Farhat Cabezas MD Unavailable [phone] Source Comments In the event this information is protected by the Federal Confidentiality of Alcohol and Drug AbusePatient Records regulations: The Federal rules restrict any use of the information to criminally investigate or prosecute any alcohol or drug abuse patient.[facility] Reason for Visit * Reason Comments Machine Hose Cutter - Other Encounter Details Date Type Department Care Team (Late st Contact Info) Description 07/04/2024 Telephone Neurology [address] [place] [address] Thaddeus Diggs MD [address] [place] [address] Machine Hose Cutter - Other Social History Tobacco Use Types [...] is lower risk 7 03/07/2024 Data from: https://www.neighborhoodatlas.[facility]/ . Last address used for calculation [...] to do peer to peer Noemy Garcia DRYWALL APPLICATOR [facility] [place] * Telephone Encounter - Anna Ruiz - 07/04/2024 2:29 PM EDT [facility] rep called stating that P2P for MRI needs to be done by 07/14 - pt is currently scheduledfor MRI tomorrow - P2P needs to be done with [facility] (# ) - pt's case number is #[id number] documented in this encounter Plan of Treatment Upcoming Encounters Date Type Department Care Team (Late st Contact Info) Description 08/30/2024 9:30 AM EDT [facility] Endocrinology [address] [place] [address] Greg Nina APRN.MANAGER MATH [address] [place] [address] diabetes follow up with sd in 3 months virtually 11/20/2024 1:00 PM EDT [facility] Endocrinology [address] [place] [address] Valdez Suarez MD [address] [place] [address] [place] [address] follow up in 6 months documented as of this encounter Visit Diagnoses Not on filedocumented in this encounter Care Teams Shrimp Pond Laborer Relationship Specialty Start Date End Date Farhat Cabezas MD PCP - General Family Medicine 01/13/11 Farhat Cabezas MD Referring Family Medicine 01/08/22 Farhat Cabezas MD [address] [place] [address] Referring Family Medicine 07/26/24 documented as of this encounter
--- OUTSIDE RECORDS SUMMARY | 2024-08-17 13:17 | XMS_ITS | Encounter Summary ---
Demographics Address [address] [place] [address] Home Phone Mobile Phone Email Address Preferred Language ENG Marital Status Single Pentecostalism Affiliation Unknown Race White Ethnic Group Not or Lati no Author Organization [facility] Address [address] [place] [address] Care Team Providers Care Carpenter'S Helper Name Role Phone Farhat Cabezas MD Primary Care Provider [phone] Farhat Cabezas MD Unavailable [phone] Farhat Cabezas MD Unavailable [phone] Source Comments In the event this information is protected by the Federal Confidentiality of Alcohol and Drug AbusePatient Records regulations: The Federal rules restrict any use of the information to criminally investigate or prosecute any alcohol or drug abuse patient.[facility] Encounter Details Date Type Department Care Team (Late st Contact Info) Description 07/15/2020 Patient Msg General Surgery [address] [place] [address] Provider, Ccf Lab results Social History Tobacco [...] N ot on file 01/16/2020 Data from: https://www.[facility]/. Last address used for calculation Not [...] AM EDT [facility] Endocrinology [address] [place] [address] [place] [address] [place] [address] diabetes follow up with me in 3 months virtually 11/20/2024 1:00 PM EDT [facility] Endocrinology [address] [place] [address] Valdez Suarez MD [address] [place] [address] [address] [place], [place] 43018[address] follow up in 6 months documented as of this encounter Visit Diagnoses Not on filedocumented in this encounter Care Teams Carpenter'S Helper Relationship Specialty Start Date End Date Farhat Cabezas MD PCP - General Family Medicine 01/13/11 Farhat Cabezas MD Referring Family Medicine 01/08/22 Farhat Cabezas MD [address] [place] [address] Referring Family Medicine 07/26/24 documented as of this encounter
--- OUTSIDE RECORDS SUMMARY | 2024-08-17 13:17 | XMS_ITS | Encounter Summary ---
Demographics Address [address] [place] [address] Home Phone Mobile Phone Email Address Preferred Language ENG Marital Status Single Anabaptist Affiliation Unknown Race White Ethnic Group Not or Lati no Author Organization [facility] Address [address] [place] [address] Care Team Providers Care Regulatory Leader Name Role Phone Farhat Cabezas MD Primary Care Provider [phone] Farhat Cabezas MD Unavailable [phone] Farhat Cabezas MD Unavailable [phone] Source Comments In the event this information is protected by the Federal Confidentiality of Alcohol and Drug AbusePatient Records regulations: The Federal rules restrict any use of the information to criminally investigate or prosecute any alcohol or drug abuse patient.[facility] Encounter Details Date Type Department Care Team (Late st Contact Info) Description 07/04/2024 [place] [address] Provider, Ccf Phone call fllow up Social [...] is lower risk 7 03/07/2024 Data from: https://www.neighborhoodatlas.[facility]/ . Last address used for [...] Info) Description 08/30/2024 9:30 AM EDT [facility] Endocrinology [address] [place] [address] Greg Nina APRN.BURR PICKER [address] [place] [address] diabetes follow up with me in 3 months virtually 11/20/2024 1:00 PM EDT [facility] Endocrinology [address] [place] [address] Valdez Suarez MD [address] [place] [address] [address] [place], [place] [address] follow up in 6 months documented as of this encounter Visit Diagnoses Not on filedocumented in this encounter Care Teams Regulatory Leader Relationship Specialty Start Date End Date Farhat Cabezas MD PCP - General Family Medicine 01/13/11 Farhat Cabezas MD Referring Family Medicine 01/08/22 Farhat Cabezas MD [address] [place] [address] Referring Family Medicine 07/26/24 documented as of this encounter
--- OUTSIDE RECORDS SUMMARY | 2024-08-17 13:17 | XMS_ITS | Encounter Summary ---
Demographics Address [address] [facility] [place] [address] Home Phone Mobile Phone Email Address Preferred Language ENG Marital Status Single Yazidism Affiliation Unknown Race White Ethnic Group Not or Lati no Author Organization [facility] Address [address] [place] [address] Care Team Providers Care Banking Manager Name Role Phone Farhat Cabezas MD Primary Care Provider [phone] Farhat Cabezas MD Unavailable [phone] Farhat Cabezas MD Unavailable [phone] Source Comments In the event this information is protected by the Federal Confidentiality of Alcohol and Drug AbusePatient Records regulations: The Federal rules restrict any use of the information to criminally investigate or prosecute any alcohol or drug abuse patient.[facility] Encounter Details Date Type Department Care Team (Late st Contact Info) Description 01/22/2016 Get Medical Advice General Surgery [address] [place] [address] Marlin Chao (Hist)MD [address] [place] [address] RE: Non-Urgent Medical Question Social [...] EDT [facility] Endocrinology [address] [place] [address] Greg Nina APRN.SUPERINTENDENT OIL FIELD DRILLING [address] [place], [place] [phone] diabetes follow up with me in 3 months virtually 11/20/2024 1:00 PM EDT [facility] Endocrinology [address] [place] [address] Valdez Suarez MD [address] [place] [address] [address] [place], [place] 3427935 follow up in 6 months documented as of this encounter Visit Diagnoses Not on filedocumented in this encounter Care Teams Banking Manager Relationship Specialty Start Date End Date Farhat Cabezas MD PCP - General Family Medicine 01/13/11 Farhat Cabezas MD Referring Family Medicine 01/08/22 Farhat Cabezas MD [address] [place] [address] Referring Family Medicine 07/26/24 documented as of this encounter
--- OUTSIDE RECORDS SUMMARY | 2024-08-17 13:17 | XMS_ITS | Encounter Summary ---
Demographics Address [address] [facility] [address] Home Phone Mobile Phone Email Address Preferred Language ENG Marital Status Single Islam Affiliation Unknown Race White Ethnic Group Not or Lati no Author Organization [facility] Address [facility] [place] [address] Care Team Providers Care Curatorial Specialist Name Role Phone Farhat Cabezas MD Primary Care Provider [phone] Farhat Cabezas MD Unavailable Faraht Cabezas MD Unavailable Source Comments In the event this information is protected by the Federal Confidentiality of Alcohol and Drug AbusePatient Records regulations: The Federal rules restrict any use of the information to criminally investigate or prosecute any alcohol or drug abuse patient.[facility] Encounter Details Date Type Department Care Team (Late st Contact Info) Description 09/27/2023 Get Medical Advice Neurology [address] [place] [address] Thaddeus Diggs MD [address] [place] [address] Mri Social History Tobacco Use Types [...] from: https://www.neighborhoodatlas.medicine.[facility]/. Last address used for calculation [address] [...] 08/30/2024 9:30 AM EDT [facility] Endocrinology [address] [place] [address] Greg Nina, MARITZA.SOLAR ELECTRIC PRACTITIONER [address] [place] [address] diabetes follow up with me in 3 months virtually 11/20/2024 1:00 PM EDT [facility] Endocrinology [address] [place] [address] Valdez Suarez MD [address] [place] [address] [address] [place], [place] [phone] follow up in 6 months documented as of this encounter Visit Diagnoses Not on filedocumented in this encounter Care Teams Curatorial Specialist Relationship Specialty Start Date End Date Farhat Cabezas MD PCP - General Family Medicine 01/13/11 Farhat Cabezas MD Referring Family Medicine 01/08/22 [place] [address] [place] [address] Referring Family Medicine 07/26/24 documented as of this encounter
--- OUTSIDE RECORDS SUMMARY | 2024-08-17 13:17 | XMS_ITS | Patient Health Record ---
Demographics Address [address] [place] [address] Mobile Preferred Language en Marital Status unmarried Christian Affiliation Unknown Race White Ethnic Group Not or Lati no Author Organization [facility] Address [address] [place] [address] Care Team Providers Care Tumblers Supervisor Name Role Phone Jason Lemon Primary Care Provider Reason For Referral No Information Plan Of Treatment No Information
--- OUTSIDE RECORDS SUMMARY | 2024-08-17 13:17 | XMS_ITS | Encounter Summary ---
Demographics Address [address] [place] [address] Home Phone Mobile Phone Email Address Preferred Language ENG Marital Status Single Moravian Affiliation Unknown Race White Ethnic Group Not or Lati no Author Organization [facility] Address [address] [place] [address] Care Team Providers Care Radioactive Waste Disposal Dispatcher Name Role Phone Farhat Cabezas MD Primary Care Provider [phone] Farhat Cabezas MD Unavailable [phone] Farhat Cabezas MD Unavailable [phone] Source Comments In the event this information is protected by the Federal Confidentiality of Alcohol and Drug AbusePatient Records regulations: The Federal rules restrict any use of the information to criminally investigate or prosecute any alcohol or drug abuse patient.[facility] Encounter Details Date Type Department Care Team (Late st Contact Info) Description 05/28/2023 Patient Msg Cardiology [address] [place], [place] [phone] Ellyn Barraza, CHIEF ANALYTICS OFFICER.SUPERVISOR PRESSING DEPARTMENT [address] [place], [place] [address]35 Appointment Request Social History Tobacco Use Types [...] is lower risk 2 12/21/2022 Data from: https://www.neighborhoodatlas.medicine.[facility].edu/. Last address used for calculation [address] [...] 08/30/2024 9:30 AM EDT [facility] [address] [place] [address] Greg Nina APRN.SUPERVISOR PRESSING DEPARTMENT [address] [place] [address] diabetes follow up with me in 3 months virtually 11/20/2024 1:00 PM EDT [facility] Endocrinology [address] [place] [address] Valdez Suarez MD [address] [place] [address] [place], [place] 1690235 follow up in 6 months documented as of this encounter Visit Diagnoses Not on filedocumented in this encounter Care Teams Radioactive Waste Disposal Dispatcher Relationship Specialty Start Date End Date Farhat Cabezas MD PCP - General Family Medicine 01/13/11 Farhat Cabezas MD Referring Family Medicine 01/08/22 Farhat Cabeazs MD [address] [place] [address] Referring Family Medicine 07/26/24 documented as of this encounter
--- OUTSIDE RECORDS SUMMARY | 2024-08-17 13:17 | XMS_ITS | Encounter Summary ---
Demographics Address [address] [place] [address] Home Phone Mobile Phone Email Address Preferred Language ENG Marital Status Single Evangelical Affiliation Unknown Race White Ethnic Group Not or Lati no Author Organization [facility] Address [address] [place] [address] Care Team Providers Care Hospital Monitor Name Role Phone Farhat Cabezas MD Primary Care Provider [phone] Farhat Cabezas MD Unavailable [phone] Farhat Cabezas MD Unavailable [phone] Source Comments In the event this information is protected by the Federal Confidentiality of Alcohol and Drug AbusePatient Records regulations: The Federal rules restrict any use of the information to criminally investigate or prosecute any alcohol or drug abuse patient.[facility] Encounter Details Date Type Department Care Team (Late st Contact Info) Description 08/25/2023 Patient Msg CB/Gynecology [address] [place] [address] [place] [address] [place] [address] Appointment Request Social History Tobacco [...] is lower risk 2 12/21/2022 Data from: https://www.neighborhoodatlas.medicine.[facility]/. Last address used [...] Contact Info) Description 08/30/2024 9:30 AM EDT [facility] Endocrinology [address] [place] [address] Greg Nina APRN.ART EDUCATOR [address] [place], [place] 5672839 diabetes follow up with me in 3 months virtually 11/20/2024 1:00 PM EDT [facility] Endocrinology [address] [place] [address] Valdez Suarez MD [address] [place] [address] [place], [place] 1979135 follow up in 6 months documented as of this encounter Visit Diagnoses Not on filedocumented in this encounter Care Teams Hospital Monitor Relationship Specialty Start Date End Date Farhat Cabezas MD PCP - General Family Medicine 01/13/11 Farhat Cabezas MD Referring Family Medicine 01/08/22 [place] [address] [place] [address] Referring Family Medicine 07/26/24 documented as of this encounter
--- OUTSIDE RECORDS SUMMARY | 2024-08-17 13:17 | XMS_ITS | Encounter Summary ---
Demographics Address [address] [place] [address] Home Phone Mobile Phone Email Address Preferred Language ENG Marital Status Single Methodist Affiliation Unknown Race White Ethnic Group Not or Lati no Author Organization [facility] Address [address] [place] [address] Care Team Providers Care Manager Manufacturing Name Role Phone Farhat Cabezas MD Primary Care Provider [phone] Farhat Cabezas MD Unavailable [phone] Farhat Cabezas MD Unavailable [phone] Source Comments In the event this information is protected by the Federal Confidentiality of Alcohol and Drug AbusePatient Records regulations: The Federal rules restrict any use of the information to criminally investigate or prosecute any alcohol or drug abuse patient.[facility] Encounter Details Date Type Department Care Team (Late st Contact Info) Description 08/12/2020 Patient Msg BMI [facility] REJ [address] [place], [place] [phone] Rachel Yi MD [address] [place] [address] Request an Appointment Social History [...] on file 01/16/2020 Data from: https://www.neighborhoodatlas.medicine.[facility]/. Last address used for calculation Not [...] Info) Description 08/30/2024 9:30 AM EDT [facility] Endocrinology [address] [place] [address] Greg Nina, MARITZA.IN HOME CAREGIVER [address] [place] [address] diabetes follow up with me in 3 months virtually 11/20/2024 1:00 PM EDT [facility] Endocrinology [address] [place] [address] Valdez Suarez MD [address] [place] [address] [place], [place] [phone] follow up in 6 months documented as of this encounter Visit Diagnoses Not on filedocumented in this encounter Care Teams Manager Manufacturing Relationship Specialty Start Date End Date Farhat Cabezas MD PCP - General Family Medicine 01/13/11 Farhat Cabezas MD Referring Family Medicine 01/08/22 Farhat Cabezas MD [facility] [place] [address] Referring Family Medicine 07/26/24 documented as of this encounter
--- OUTSIDE RECORDS SUMMARY | 2024-08-17 13:17 | XMS_ITS | Encounter Summary ---
Demographics Address [address] [place] [address] Home Phone Mobile Phone Email Address Preferred Language ENG Marital Status Single Mosque Affiliation Unknown Race White Ethnic Group Not or Lati no Author Organization [facility] Address [address] [place] [address] Care Team Providers Care Application Trainer Name Role Phone Farhat Cabezas MD Primary Care Provider [phone] Farhat Cabezas MD Unavailable [phone] Farhat Cabezas MD Unavailable [phone] Source Comments In the event this information is protected by the Federal Confidentiality of Alcohol and Drug AbusePatient Records regulations: The Federal rules restrict any use of the information to criminally investigate or prosecute any alcohol or drug abuse patient.[facility] Encounter Details Date Type Department Care Team (Late st Contact Info) Description 07/03/2024 [place] [address] Provider, Ccf MRI Screening Questionnaire Completion Required [...] is lower risk 7 03/07/2024 Data from: https://www.neighborhoodatlas.[facility]/ . Last address used for calculation [...] Info) Description 08/30/2024 9:30 AM EDT [facility] Endocrinology [address] [place] [address] Greg Nina APRN.MOISTURE CONDITIONER OPERATOR [address] [place] [address] diabetes follow up with me in 3 months virtually 11/20/2024 1:00 PM EDT [facility] [address] [place] [address] Valdez Suarez MD [address] [place] [address] [address] [place], [place] 70608[address] follow up in 6 months documented as of this encounter Visit Diagnoses Not on filedocumented in this encounter Care Teams Application Trainer Relationship Specialty Start Date End Date Farhat Cabezas MD PCP - General Family Medicine 01/13/11 Farhat Cabezas MD Referring Family Medicine 01/08/22 Farhat Cabezas MD [address] [place] [address] Referring Family Medicine 07/26/24 documented as of this encounter
--- OUTSIDE RECORDS SUMMARY | 2024-08-17 13:17 | XMS_ITS | Encounter Summary ---
Demographics Address [address] [facility] [place] [address] Home Phone Mobile Phone Email Address Preferred Language ENG Marital Status Single Mormon Affiliation Unknown Race White Ethnic Group Not or Lati no Author Organization [facility] Address [facility] [place] [address] Care Team Providers Care Boatswain Mate Name Role Phone Farhat Cabezas MD Primary Care Provider [phone] Farhat Cabezas MD Unavailable [phone] Farhat Cabezas MD Unavailable [phone] Source Comments In the event this information is protected by the Federal Confidentiality of Alcohol and Drug AbusePatient Records regulations: The Federal rules restrict any use of the information to criminally investigate or prosecute any alcohol or drug abuse patient.[facility] Encounter Details Date Type Department Care Team (Late st Contact Info) Description 07/07/2024 Patient Msg Neurology [address] [place] [address] Thaddeus Diggs MD [address] [place] [address] MRI denial Social History Tobacco Use [...] is lower risk 7 03/07/2024 Data from: https://www.neighborhoodatlas.medicine.[facility]/ . Last address used for calculation [address] [...] Info) Description 08/30/2024 9:30 AM EDT [facility] Endocrinology [address] [place] [address] Greg Nina APRN.SEISMIC PROSPECTING OBSERVER HELPER [address] [place] [address] diabetes follow up with me in 3 months virtually 11/20/2024 1:00 PM EDT [facility] Endocrinology [address] [place] [address] Valdez Suarez MD [address] [place] [address] [place], [place] 2685135 follow up in 6 months documented as of this encounter Visit Diagnoses Not on filedocumented in this encounter Care Teams Boatswain Mate Relationship Specialty Start Date End Date Farhat Cabezas MD PCP - General Family Medicine 01/13/11 Farhat Cabezas MD Referring Family Medicine 01/08/22 Farhat Cabezas MD [address] [place] [address] Referring Family Medicine 07/26/24 documented as of this encounter
--- OUTSIDE RECORDS SUMMARY | 2024-08-17 13:17 | XMS_ITS | Encounter Summary ---
Demographics Address [address] [place] [address] Home Phone Mobile Phone Email Address Preferred Language ENG Marital Status Single Baptism Affiliation Unknown Race White Ethnic Group Not or Lati no Author Organization [facility] Address [address] [place] [address] Care Team Providers Care Multiple Launch Rocket System Crewmember Name Role Phone Farhat Cabezas MD Primary Care Provider [phone] Farhat Cabezas MD Unavailable [phone] Farhat Cabezas MD Unavailable [phone] Source Comments In the event this information is protected by the Federal Confidentiality of Alcohol and Drug AbusePatient Records regulations: The Federal rules restrict any use of the information to criminally investigate or prosecute any alcohol or drug abuse patient.[facility] Encounter Details Date Type Department Care Team (Late st Contact Info) Description 07/04/2024 Patient Msg Neurology [address] [place] [address] Provider, Ccf from Dr Duenas office Social [...] is lower risk 7 03/07/2024 Data from: https://www.neighborhoodatlas.[facility]/ . Last address used for calculation [...] Info) Description 08/30/2024 9:30 AM EDT [facility] Endocrinology [address] [place] [address] Greg Nina APRN.SUPPLY CHAIN GENERALIST [address] [place], [place] 5597239 diabetes follow up with me in 3 months virtually 11/20/2024 1:00 PM EDT [facility] Endocrinology [address] [place] [address] Valdez Suarez MD [address] [place] [address] [place], [place] 4563335 follow up in 6 months documented as of this encounter Visit Diagnoses Not on filedocumented in this encounter Care Teams Multiple Launch Rocket System Crewmember Relationship Specialty Start Date End Date Farhat Cabezas MD PCP - General Family Medicine 01/13/11 Farhat Cabezas MD Referring Family Medicine 01/08/22 Farhat Cabezas MD [address] [place] [address] Referring Family Medicine 07/26/24 documented as of this encounter
--- OUTSIDE RECORDS SUMMARY | 2024-08-17 13:17 | XMS_ITS | Encounter Summary ---
Author Organization [facility] Address [address] [place] [address] Care Team Providers Care Network Support Analyst Name Role Phone Farhat Cabezas MD Primary Care Provider [phone] Farhat Cabezas MD Unavailable [phone] Farhat Cabezas MD Unavailable [phone] Source Comments In the event this information is protected by the Federal Confidentiality of Alcohol and Drug AbusePatient Records regulations: The Federal rules restrict any use of the information to criminally investigate or prosecute any alcohol or drug abuse patient.[facility] Encounter Details Date Type Department Care Team (Late st Contact Info) Description 02/19/2016 Patient Msg Medical Records [address] [place] [address] Provider, Ccf medical workup/ Social History Tobacco [...] 9:30 AM EDT [facility] Endocrinology [address] [place] [address] Greg Nina APRN.SPECIALIST ICU [address] [place] [address] diabetes follow up with me in 3 months virtually 11/20/2024 1:00 PM EDT [facility] Endocrinology [address] [place] [address] Valdez Suarez MD [address] [place] [address] [place], [place] 3[address] follow up in 6 months documented as of this encounter Visit Diagnoses Not on filedocumented in this encounter Care Teams Network Support Analyst Relationship Specialty Start Date End Date Farhat Cabezas MD PCP - General Family Medicine 01/13/11 Farhat Cabezas MD Referring Family Medicine 01/08/22 Farhat Cabezas MD [address] [place] [address] Referring Family Medicine 07/26/24 documented as of this encounter
--- OUTSIDE RECORDS SUMMARY | 2024-08-17 13:17 | XMS_ITS | Encounter Summary ---
Demographics Address [address] [place] [address] Home Phone Mobile Phone Email Address Preferred Language ENG Marital Status Single Bahai Affiliation Unknown Race White Ethnic Group Not or Lati no Author Organization [facility] Address [address] [place] [address] Care Team Providers Care Cryptological Technician Name Role Phone Farhat Cabezas MD Primary Care Provider [phone] Farhat Cabezas MD Unavailable [phone] Farhat Cabezas MD Unavailable [phone] Source Comments In the event this information is protected by the Federal Confidentiality of Alcohol and Drug AbusePatient Records regulations: The Federal rules restrict any use of the information to criminally investigate or prosecute any alcohol or drug abuse patient.[facility] Encounter Details Date Type Department Care Team (Late st Contact Info) Description 12/20/2023 [place] [address] Provider, Ccf MRI Screening Questionnaire Completion Required [...] is lower risk 2 12/21/2022 Data from: https://www.neighborhoodatlas.[facility]/. Last address used for calculation 543 [...] 9:30 AM EDT [facility] Endocrinology [address] [place] [address] Greg Nina APRN.ESCALATOR INSTALLER [address] [place] [address] diabetes follow up with me in 3 months virtually 11/20/2024 1:00 PM EDT [facility] Endocrinology [address] [place] [address] Valdez Suarez MD [address] [place] [address] [place] [address] follow up in 6 months documented as of this encounter Visit Diagnoses Not on filedocumented in this encounter Care Teams Cryptological Technician Relationship Specialty Start Date End Date Farhat Cabezas MD PCP - General Family Medicine 01/13/11 Farhat Cabezas MD Referring Family Medicine 01/08/22 Farhat Cabezas MD [address] [place] [address] Referring Family Medicine 07/26/24 documented as of this encounter
--- OUTSIDE RECORDS SUMMARY | 2024-08-17 13:17 | XMS_ITS | Encounter Summary ---
Demographics Address [address] [facility] [place] [address] Home Phone Mobile Phone Email Address Preferred Language ENG Marital Status Single Zoroastrian Affiliation Unknown Race White Ethnic Group Not or Lati no Author Organization [facility] Address [address] [place] [address] Care Team Providers Care Senior Auditor Name Role Phone Farhat Cabezas MD Primary Care Provider [phone] Farhat Cabezas MD Unavailable [phone] Farhat Cabezas MD Unavailable [phone] Source Comments In the event this information is protected by the Federal Confidentiality of Alcohol and Drug AbusePatient Records regulations: The Federal rules restrict any use of the information to criminally investigate or prosecute any alcohol or drug abuse patient.[facility] Encounter Details Date Type Department Care Team (Late st Contact Info) Description 03/31/2016 Get Medical Advice General Surgery [address] [place] [address] Rachel Yi MD [address] [place] [address] RE: Non-Urgent Medical Question Social [...] 08/30/2024 9:30 AM EDT [facility] Endocrinology [address] [place] [address] Greg Nina APRN.AIR REDUCTION EQUIPMENT OPERATOR [address] [place], [place] 6546839 diabetes follow up with me in 3 months virtually 11/20/2024 1:00 PM EDT [facility] Endocrinology [address] [place] [address] Valdez Suarez MD [address] [place] [address] [place], [place] 5349535 follow up in 6 months documented as of this encounter Visit Diagnoses Not on filedocumented in this encounter Care Teams Senior Auditor Relationship Specialty Start Date End Date Farhat Cabezas MD PCP - General Family Medicine 01/13/11 Farhat Cabezas MD Referring Family Medicine 01/08/22 Farhat Cabezas MD [address] [place] [address] Referring Family Medicine 07/26/24 documented as of this encounter
--- OUTSIDE RECORDS SUMMARY | 2024-08-17 13:17 | XMS_ITS | Encounter Summary ---
Demographics Address [address] [facility] [place] [address] Home Phone Mobile Phone Email Address Preferred Language ENG Marital Status Single Catholic Affiliation Unknown Race White Ethnic Group Not or Lati no Author Organization [facility] Address [address] [place] [address] Care Team Providers Care School Photograph Editor Name Role Phone Farhat Cabezas MD Primary Care Provider [phone] Farhat Cabezas MD Unavailable [phone] Farhat Cabezas MD Unavailable [phone] Source Comments In the event this information is protected by the Federal Confidentiality of Alcohol and Drug AbusePatient Records regulations: The Federal rules restrict any use of the information to criminally investigate or prosecute any alcohol or drug abuse patient.[facility] Encounter Details Date Type Department Care Team (Late st Contact Info) Description 07/15/2022 Patient Msg Endocrinology [address] [place] [address] Provider, Ccf Nba Portal Social History Tobacco [...] is lower risk 4 06/11/2022 Data from: https://www.neighborhoodatlas.[facility]/. Last address used for calculation [address] [facility] 06/11/2022 Comments No Sex and Gender Information [...] Description 08/30/2024 9:30 AM EDT [facility] Endocrinology [address] [place] [address] Greg Nina APRN.SEAMARK ADVANCED OPERATOR MAINTAINER [address] [place] [address] diabetes follow up with me in 3 months virtually 11/20/2024 1:00 PM EDT Distance [facility] Endocrinology [address] [place] [address] Valdez Suarez MD [address] [place] [address] [place], [place] 6095435 follow up in 6 months documented as of this encounter Visit Diagnoses Not on filedocumented in this encounter Care Teams School Photograph Editor Relationship Specialty Start Date End Date Farhat Cabezas MD PCP - General Family Medicine 01/13/11 Farhat Cabezas MD Referring Family Medicine 01/08/22 Farhat Cabezas MD [address] [place] [address] Referring Family Medicine 07/26/24 documented as of this encounter
--- OUTSIDE RECORDS SUMMARY | 2024-08-17 13:17 | XMS_ITS | Encounter Summary ---
Demographics Address [address] [place] [address] Home Phone Mobile Phone Email Address Preferred Language ENG Marital Status Single Religion Affiliation Unknown Race White Ethnic Group Not or Lati no Author Organization [facility] Address [facility] [place] [address] Care Team Providers Care Safe Deposit Clerk Name Role Phone Farhat Cabezas MD Primary Care Provider [phone] Farhat Cabezas MD Unavailable [phone] Farhat Cabezas MD Unavailable [phone] Source Comments In the event this information is protected by the Federal Confidentiality of Alcohol and Drug AbusePatient Records regulations: The Federal rules restrict any use of the information to criminally investigate or prosecute any alcohol or drug abuse patient.[facility] Encounter Details Date Type Department Care Team (Late st Contact Info) Description 05/02/2023 Patient [facility] Internal Medicine [address] [place] [phone] Mathew Ferraro MD Regarding your upcoming endoscopy [...] is lower risk 2 12/21/2022 Data from: https://www.neighborhoodatlas.[facility].edu/. Last address used for calculation 543 [...] 9:30 AM EDT [facility] Endocrinology [address] [place] [address] Greg Nina APRN.AUTOMATIC HEMMER [address] [place], [place] [phone] diabetes follow up with me in 3 months virtually 11/20/2024 1:00 PM EDT [facility] Endocrinology [address] [place] [address] Valdez Suarez MD [address] [place] [address] [address] [place], [place] 5287335 follow up in 6 months documented as of this encounter Visit Diagnoses Not on filedocumented in this encounter Care Teams Safe Deposit Clerk Relationship Specialty Start Date End Date Farhat Cabezas MD PCP - General Family Medicine 01/13/11 Farhat Cabezas MD Referring Family Medicine 01/08/22 Farhat Cabezas MD [address] [place] [address] Referring Family Medicine 07/26/24 documented as of this encounter
--- OUTSIDE RECORDS SUMMARY | 2024-08-17 13:17 | XMS_ITS | Encounter Summary ---
Demographics Address [address] [place] [address] Home Phone Mobile Phone Email Address Preferred Language ENG Marital Status Single Hinduism Affiliation Unknown Race White Ethnic Group Not or Lati no Author Organization [facility] Address [address] [place] [address] Care Team Providers Care Cheesemaking Laborer Name Role Phone Farhat Cabezas MD Primary Care Provider [phone] Farhat Cabezas MD Unavailable [phone] Farhat Cabezas MD Unavailable [phone] Source Comments In the event this information is protected by the Federal Confidentiality of Alcohol and Drug AbusePatient Records regulations: The Federal rules restrict any use of the information to criminally investigate or prosecute any alcohol or drug abuse patient.[facility] Encounter Details Date Type Department Care Team (Late st Contact Info) Description 08/12/2020 Get Medical Advice [facility] REJ [address] [place], [place] [id number] Rachel Yi MD [address] [place] [address] RE: Visit Follow Up Question [...] file 01/16/2020 Data from: https://www.neighborhoodatlas.medicine.[facility]/. Last address used for [...] Description 08/30/2024 9:30 AM EDT [facility] Endocrinology [address] [place] [address] Greg Nina APRN.PRIMER AND POWDER CANNING LEADER [address] [place], [place] [phone] diabetes follow up with me in 3 months virtually 11/20/2024 1:00 PM EDT [facility] Endocrinology [address] [place] [address] Valdez Suarez MD [address] [place] [address] [address] [place], [place] 5080335 follow up in 6 months documented as of this encounter Visit Diagnoses Not on filedocumented in this encounter Care Teams Cheesemaking Laborer Relationship Specialty Start Date End Date Farhat Cabezas MD PCP - General Family Medicine 01/13/11 Farhat Cabezas MD Referring Family Medicine 01/08/22 Farhat Cabezas MD [address] [place] [address] Referring Family Medicine 07/26/24 documented as of this encounter
--- OUTSIDE RECORDS SUMMARY | 2024-08-17 13:17 | XMS_ITS | Encounter Summary ---
Demographics Address [address] [place] [address] Home Phone Mobile Phone Email Address Preferred Language ENG Marital Status Single Mandaeism Affiliation Unknown Race White Ethnic Group Not or Lati no Author Organization [facility] Address [address] [place] [address] Care Team Providers Care Grommet Machine Operator Name Role Phone Jacob Santillan MD Primary Care Provider [phone] Farhat Cabezas MD Primary Care Provider [phone] Farhat Cabezas MD Unavailable [phone] Farhat Cabezas MD Unavailable [phone] Source Comments In the event this information is protected by the Federal Confidentiality of Alcohol and Drug AbusePatient Records regulations: The Federal rules restrict any use of the information to criminally investigate or prosecute any alcohol or drug abuse patient.[facility] Reason for Visit * Reason Comments Outside Lab Results [facility] 05/09/08 Encounter Details Date Type Department Care Team (Late st Contact Info) Description 05/14/2008 Abstract Rheumatology [address] [place] [address] Zabrina Culver MD [address] [facility] [place] [address] Outside Lab Results ([facility] 05/09/08) Social History Tobacco Use Types Packs/Day [...] 08/30/2024 9:30 AM EDT [facility] Endocrinology [address] [place] [address] Greg Nina APRN.INDUSTRIAL ENGINEERING DIRECTOR [address] [place], [place] 4991739 diabetes follow up with me in 3 months virtually 11/20/2024 1:00 PM EDT [facility] Endocrinology [address] [place] [address] Valdez Suarez MD [address] [place] [address] [address] [place], [place] 7753435 follow up in 6 months documented as of this encounter Visit Diagnoses Not on filedocumented in this encounter Care Teams Grommet Machine Operator Relationship Specialty Start Date End Date Jacob Santillan MD PCP - General 08/05/05 01/12/11 Farhat Cabezas MD PCP - General Family Medicine 01/13/11 Farhat Cabezas MD Referring Family Medicine 01/08/22 Farhat Cabezas MD [address] [place] [address] Referring Family Medicine 07/26/24 documented as of this encounter
--- OUTSIDE RECORDS SUMMARY | 2024-08-17 13:17 | XMS_ITS | Encounter Summary ---
Demographics Address [address] [place] [address] Home Phone Mobile Phone Email Address Preferred Language ENG Marital Status Single Catholic Affiliation Unknown Race White Ethnic Group Not or Lati no Author Organization [facility] Address [address] [place] [address] Care Team Providers Care Distribution Superintendent Name Role Phone Farhat Cabezas MD Primary Care Provider [phone] Farhat Cabezas MD Unavailable [phone] Farhat Cabezas MD Unavailable [phone] Source Comments In the event this information is protected by the Federal Confidentiality of Alcohol and Drug AbusePatient Records regulations: The Federal rules restrict any use of the information to criminally investigate or prosecute any alcohol or drug abuse patient.[facility] Encounter Details Date Type Department Care Team (Late st Contact Info) Description 07/19/2023 Patient Msg Cardiology [address] [facility] [place] [address] Ellyn Barraza, ASSOCIATE PROFESSOR OF GEOLOGY.HAIR DRESSER [address] [facility] [place] [address] Appointment Request Social History Tobacco Use [...] is lower risk 2 12/21/2022 Data from: https://www.neighborhoodatlas.medicine.[facility].edu/. Last address used for calculation [address] [...] 08/30/2024 9:30 AM EDT [facility] Endocrinology [address] [place] [address] Greg Nina APRN.HAIR DRESSER [address] [place] [address] diabetes follow up with me in 3 months virtually 11/20/2024 1:00 PM EDT [facility] Endocrinology [address] [place] [address] Valdez Suarez MD [address] [place] [address] [address] [place], [place] [phone] follow up in 6 months documented as of this encounter Visit Diagnoses Not on filedocumented in this encounter Care Teams Distribution Superintendent Relationship Specialty Start Date End Date Farhat Cabezas MD PCP - General Family Medicine 01/13/11 Farhat Cabezas MD Referring Family Medicine 01/08/22 Farhat Cabezas MD [address] [place] [address] Referring Family Medicine 07/26/24 documented as of this encounter
--- OUTSIDE RECORDS SUMMARY | 2024-08-17 13:17 | XMS_ITS | Encounter Summary ---
Demographics Address [address] [facility] [place] [address] Home Phone Mobile Phone Email Address Preferred Language ENG Marital Status Single Evangelical Affiliation Unknown Race White Ethnic Group Not or Lati no Author Organization [facility] Address [address] [place] [address] Care Team Providers Care Machine Boss Name Role Phone Farhat Cabezas MD Primary Care Provider [phone] Farhat Cabezas MD Unavailable [phone] Farhat Cabezas MD Unavailable [phone] Source Comments In the event this information is protected by the Federal Confidentiality of Alcohol and Drug AbusePatient Records regulations: The Federal rules restrict any use of the information to criminally investigate or prosecute any alcohol or drug abuse patient.[facility] Encounter Details Date Type Department Care Team (Late st Contact Info) Description 01/10/2016 Get Medical Advice General Surgery [address] [place] [address] Rachel Yi MD [address] [place] [address] RE: Non-Urgent Medical Question Social [...] AM EDT [facility] Endocrinology [address] [place] [address] Greg Nina APRN.DIRECTOR EMERGENCY SERVICES [address] [place], [place] [phone] diabetes follow up with me in 3 months virtually 11/20/2024 1:00 PM EDT [facility] Endocrinology [address] [place] [address] Valdez Suarez MD [address] [place] [address] [address] [place], [place] [phone] follow up in 6 months documented as of this encounter Visit Diagnoses Not on filedocumented in this encounter Care Teams Machine Boss Relationship Specialty Start Date End Date Farhat Cabezas MD PCP - General Family Medicine 01/13/11 Farhat Cabezas MD Referring Family Medicine 01/08/22 Farhat Cabezas MD [address] [place] [address] Referring Family Medicine 07/26/24 documented as of this encounter
--- OUTSIDE RECORDS SUMMARY | 2024-08-17 13:17 | XMS_ITS | Encounter Summary ---
Demographics Address [address] [facility] [place] [address] Home Phone Mobile Phone Email Address Preferred Language ENG Marital Status Single Samaritan Affiliation Unknown Race White Ethnic Group Not or Lati no Author Organization [facility] Address [address] [place] [address] Care Team Providers Care Card Tape Converter Operator Name Role Phone Farhat Cabezas MD Primary Care Provider [phone] Farhat Cabezas MD Unavailable [phone] Farhat Cabezas MD Unavailable [phone] Source Comments In the event this information is protected by the Federal Confidentiality of Alcohol and Drug AbusePatient Records regulations: The Federal rules restrict any use of the information to criminally investigate or prosecute any alcohol or drug abuse patient.[facility] Encounter Details Date Type Department Care Team (Late st Contact Info) Description 12/23/2015 Get Medical Advice General Surgery 9300 [place] [address] Rachel Yi MD [address] [place] [address] RE: Test Result Question Social [...] [facility] Endocrinology [address] [place] [address] Greg Nina APRN.PLUMBING AND HEATING MECHANIC [address] [place], [place] [phone] diabetes follow up with me in 3 months virtually 11/20/2024 1:00 PM EDT [facility] Endocrinology [address] [place] [address] Valdez Suarez MD [address] [place] [address] [address] [place], [place] [phone] follow up in 6 months documented as of this encounter Visit Diagnoses Not on filedocumented in this encounter Care Teams Card Tape Converter Operator Relationship Specialty Start Date End Date Farhat Cabezas MD PCP - General Family Medicine 01/13/11 Farhat Cabezas MD Referring Family Medicine 01/08/22 Farhat Cabezas MD [address] [place] [address] Referring Family Medicine 07/26/24 documented as of this encounter
--- OUTSIDE RECORDS SUMMARY | 2024-08-17 13:17 | XMS_ITS | Encounter Summary ---
Demographics Address [address] [place] [address] Home Phone Mobile Phone Email Address Preferred Language ENG Marital Status Single Confucianism Affiliation Unknown Race White Ethnic Group Not or Lati no Author Organization [facility] Address [address] [place] [address] Care Team Providers Care Rubber Grinder Name Role Phone Farhat Cabezas MD Primary Care Provider [phone] Farhat Cabezas MD Unavailable [phone] Farhat Cabezas MD Unavailable [phone] Source Comments In the event this information is protected by the Federal Confidentiality of Alcohol and Drug AbusePatient Records regulations: The Federal rules restrict any use of the information to criminally investigate or prosecute any alcohol or drug abuse patient.[facility] Encounter Details Date Type Department Care Team (Late st Contact Info) Description 09/22/2020 Get Medical Advice [facility] REJ [address] [place], [place] [phone] Rachel Yi MD [address] [place] [address] RE: Visit Follow Up Question [...] N ot on file 01/16/2020 Data from: https://www.neighborhoodatlas.medicine.[facility]/. Last address used for calculation [...] of Assessment Author No 12/14/2016 12:43 PM Mnoa Dubose (Rn) (Hist), RN * Are you [...] 08/30/2024 9:30 AM EDT [facility] Endocrinology [address] [place] [address] Greg Nina APRN.ENGINEER GEOPHYSICAL LABORATORY [address] [place], [place] 1878339 diabetes follow up with me in 3 months virtually 11/20/2024 1:00 PM EDT [facility] Endocrinology [address] [place] [address] Valdez Suarez MD [address] [place] [address] [place], [place] [phone] follow up in 6 months documented as of this encounter Visit Diagnoses Not on filedocumented in this encounter Care Teams Rubber Grinder Relationship Specialty Start Date End Date Farhat Cabezas MD PCP - General Family Medicine 01/13/11 Farhat Cabezas MD Referring Family Medicine 01/08/22 Farhat Cabezas MD [address] [place] [address] Referring Family Medicine 07/26/24 documented as of this encounter
--- OUTSIDE RECORDS SUMMARY | 2024-08-17 13:17 | XMS_ITS | Encounter Summary ---
Author Organization [facility] Address [address] [place] [address] Care Team Providers Care Manager Document Control Name Role Phone Jacob Santillan MD Primary Care Provider [phone] Farhat Cabezas MD Primary Care Provider [phone] Farhat Cabezas MD Unavailable [phone] Farhat Cabezas MD Unavailable [phone] Source Comments In the event this information is protected by the Federal Confidentiality of Alcohol and Drug AbusePatient Records regulations: The Federal rules restrict any use of the information to criminally investigate or prosecute any alcohol or drug abuse patient.[facility] Encounter Details Date Type Department Care Team ([facility] Contact Info) Description 09/20/2008 Patient Msg Medical Records [address] [place] [address] Provider, [facility] labwork Social History Tobacco Use [...] Upcoming Encounters Date Type Department Care Team ([facility] Contact Info) Description 08/30/2024 9:30 AM EDT [facility] Endocrinology [address] [place] [address] Greg Nina APRN.CLASSIFICATION INSPECTOR [address] [place] [address] diabetes follow up with me in 3 months virtually 11/20/2024 1:00 PM EDT [facility] Endocrinology [address] [place] [address] Valdez Suarez MD [address] [place] [address] [address] [place], [place] 0838835 follow up in 6 months documented as of this encounter Visit Diagnoses Not on filedocumented in this encounter Care Teams Manager Document Control Relationship Specialty Start Date End Date Jacob Santillan MD PCP - General 08/05/05 01/12/11 Farhat Cabezas MD PCP - General Family Medicine 01/13/11 Farhat Cabezas MD Referring Family Medicine 01/08/22 Farhat Cabezas MD [address] [place] [address] Referring Family Medicine 07/26/24 documented as of this encounter
--- OUTSIDE RECORDS SUMMARY | 2024-08-17 13:17 | XMS_ITS | Encounter Summary ---
Demographics Address [address] [place] [address] Home Phone Mobile Phone Email Address Preferred Language ENG Marital Status Single Spiritism Affiliation Unknown Race White Ethnic Group Not or Lati no Author Organization [facility] Address [address] [place] [address] Care Team Providers Care Harpsichord Maker Name Role Phone Farhat Cabezas MD Primary Care Provider [phone] Farhat Cabezas MD Unavailable [phone] Farhat Cabezas MD Unavailable [phone] Source Comments In the event this information is protected by the Federal Confidentiality of Alcohol and Drug AbusePatient Records regulations: The Federal rules restrict any use of the information to criminally investigate or prosecute any alcohol or drug abuse patient.[facility] Encounter Details Date Type Department Care Team (Late st Contact Info) Description 08/06/2020 Abstract General Surgery 9300 [place] [address] Rachel Yi MD 0438 [place] [address] Social History Tobacco Use Types [...] N ot on file 01/16/2020 Data from: https://www.neighborhoodatlas.medicine.[facility]/. Last address used [...] AM EDT [facility] Endocrinology [address] [place] [address] Greg Nina APRN.CORPORATE TRAINING MANAGER [address] [place] [address] diabetes follow up with me in 3 months virtually 11/20/2024 1:00 PM EDT [facility] Endocrinology [address] [place] [address] Valdez Suarez MD [address] [place] [address] [address] [place], [place] 8483835 follow up in 6 months documented as of this encounter Visit Diagnoses Not on filedocumented in this encounter Care Teams Harpsichord Maker Relationship Specialty Start Date End Date Farhat Cabezas MD PCP - General Family Medicine 01/13/11 Farhat Cabezas MD Referring Family Medicine 01/08/22 Farhat Cabezas MD [address] [place] [address] Referring Family Medicine 07/26/24 documented as of this encounter
--- OUTSIDE RECORDS SUMMARY | 2024-08-17 13:17 | XMS_ITS | Encounter Summary ---
Demographics Address [address] [place] [address] Home Phone Mobile Phone Email Address Preferred Language ENG Marital Status Single Yazidi Affiliation Unknown Race White Ethnic Group Not or Lati no Author Organization [facility] Address [address] [place] [address] Care Team Providers Care Diversity Intern Name Role Phone Farhat Cabezas MD Primary Care Provider [phone] Farhat Cabezas MD Unavailable [phone] Farhat Cabezas MD Unavailable [phone] Source Comments In the event this information is protected by the Federal Confidentiality of Alcohol and Drug AbusePatient Records regulations: The Federal rules restrict any use of the information to criminally investigate or prosecute any alcohol or drug abuse patient.[facility] Encounter Details Date Type Department Care Team (Late st Contact Info) Description 12/26/2023 [place] [address] Provider, [facility] MRI Screening Questionnaire Completion Required [...] risk 2 12/21/2022 Data from: https://www.neighborhoodatlas.[facility]/. Last address used for calculation [address] [...] Date Author No 12/14/2016 12:43 PM Mona DuobseRn) (Hist), RN documented in this encounter Plan of Treatment Upcoming Encounters Date Type Department Care Team (Late st Contact Info) Description 08/30/2024 9:30 AM EDT [facility] Endocrinology [address] [place] [address] Greg Nina APRN.GAS ENGINE PERFORMANCE ENGINEER [address] [place] [address] diabetes follow up with me in 3 months virtually 11/20/2024 1:00 PM EDT [facility] Endocrinology [address] [place] [address] Valdez Suarez MD [address] [place] [address] [place] [address] follow up in 6 months documented as of this encounter Visit Diagnoses Not on filedocumented in this encounter Care Teams Diversity Intern Relationship Specialty Start Date End Date Farhat Cabezas MD PCP - General Family Medicine 01/13/11 Farhat Cabezas MD Referring Family Medicine 01/08/22 Farhat Cabezas MD [address] [place] [address] Referring Family Medicine 07/26/24 documented as of this encounter
--- OUTSIDE RECORDS SUMMARY | 2024-08-17 13:17 | XMS_ITS | Encounter Summary ---
Demographics Address [address] [place] [address] Home Phone Mobile Phone Email Address [email or web address] Preferred Language ENG Marital Status Single Nondenominational Affiliation Unknown Race White Ethnic Group Not or Lati no Author Organization [facility] Address [address] [place] [address] Care Team Providers Care Osteopathic Resident Name Role Phone Farhat Cabezas MD Primary Care Provider [phone] Farhat Cabezas MD Unavailable [phone] Farhat Cabezas MD Unavailable [phone] Source Comments In the event this information is protected by the Federal Confidentiality of Alcohol and Drug AbusePatient Records regulations: The Federal rules restrict any use of the information to criminally investigate or prosecute any alcohol or drug abuse patient.[facility] Encounter Details Date Type Department Care Team (Late st Contact Info) Description 02/22/2020 Get Medical Advice [facility] REJ [address] [place], [place] [phone] Rachel Yi MD 9508 [place] [address] RE: Medication Question (Not Renewal) [...] N ot on file 01/16/2020 Data from: https://www.neighborhoodatlas.medicine.[facility]/. Last address used for calculation Not on [...] 08/30/2024 9:30 AM EDT [facility] Endocrinology [address] [place] [address] Greg Nina APRN.[facility] [address] [place] [address] diabetes follow up with me in 3 months virtually 11/20/2024 1:[address] [facility] Endocrinology [address] [place] [address] Valdez Suarez MD [address] [place] [address] [address] [place], [place] [phone] follow up in 6 months documented as of this encounter Visit Diagnoses Not on filedocumented in this encounter Care Teams Osteopathic Resident Relationship Specialty Start Date End Date Farhat Cabezas MD PCP - General Family Medicine 01/13/11 Farhat Cabezas MD Referring Family Medicine 01/08/22 [place] [address] [place] [address] Referring Family Medicine 07/26/24 documented as of this encounter
--- OUTSIDE RECORDS SUMMARY | 2024-08-17 13:17 | XMS_ITS | Encounter Summary ---
Demographics Address [address] [facility] [place] [address] Home Phone Mobile Phone Email Address Preferred Language ENG Marital Status Single Synagogue Affiliation Unknown Race White Ethnic Group Not or Lati no Author Organization [facility] Address [facility] [place] [address] Care Team Providers Care Drophammer Operator Name Role Phone Farhat Cabezas MD Primary Care Provider [phone] Farhat Cabezas MD Unavailable [phone] Farhat Cabezas MD Unavailable [phone] Source Comments In the event this information is protected by the Federal Confidentiality of Alcohol and Drug AbusePatient Records regulations: The Federal rules restrict any use of the information to criminally investigate or prosecute any alcohol or drug abuse patient.[facility] Encounter Details Date Type Department Care Team (Late st Contact Info) Description 05/24/2024 Get Medical Advice Neurology [address] [place] [address] Thaddeus Diggs MD [address] [place] [address] MRI cervical slime Social History [...] is lower risk 7 03/07/2024 Data from: https://www.neighborhoodatlas.medicine.[facility]/ . Last address used for calculation [...] 9:30 AM EDT [facility] Endocrinology [address] [place] [address] Greg Nina APRN.SUPERVISOR PUBLICATIONS [address] [place] [address] diabetes follow up with me in 3 months virtually 11/20/2024 1:00 PM EDT [facility] Endocrinology [address] [place] [address] Valdez Suarez MD [address] [place] [address] [address] [place], [place] 9285335 follow up in 6 months documented as of this encounter Visit Diagnoses Not on filedocumented in this encounter Care Teams Drophammer Operator Relationship Specialty Start Date End Date Farhat Cabezas MD PCP - General Family Medicine 01/13/11 Farhat Cabezas MD Referring Family Medicine 01/08/22 Farhat Cabezas MD [address] [place] [address] Referring Family Medicine 07/26/24 documented as of this encounter
--- OUTSIDE RECORDS SUMMARY | 2024-08-17 13:17 | XMS_ITS | Encounter Summary ---
Demographics Address [address] [facility] [place] [address] Home Phone Mobile Phone Email Address Preferred Language ENG Marital Status Single Protestant Affiliation Unknown Race White Ethnic Group Not or Lati no Author Organization [facility] Address [address] [place] [address] Care Team Providers Care Scarifier Operator Name Role Phone Farhat Cabezas MD Primary Care Provider [phone] Farhat Cabezas MD Unavailable [phone] Farhat Cabezas MD Unavailable [phone] Source Comments In the event this information is protected by the Federal Confidentiality of Alcohol and Drug AbusePatient Records regulations: The Federal rules restrict any use of the information to criminally investigate or prosecute any alcohol or drug abuse patient.[facility] Encounter Details Date Type Department Care Team (Late st Contact Info) Description 05/28/2023 Patient Msg Endocrinology [address] [place] [address] Vinicius Márquez, SUPERVISOR CAPACITOR PROCESSING.CHANGE OF ADDRESS CLERK [address] [place] [address] Appointment Request Social History Tobacco Use Types [...] is lower risk 2 12/21/2022 Data from: https://www.neighborhoodatlas.medicine.[facility]/. Last address used for calculation [address] [...] Contact Info) Description 08/30/2024 9:30 AM EDT [facility] Endocrinology [address] [place] [phone] Greg Nina APRN.CHANGE OF ADDRESS CLERK [address] [place] [address] diabetes follow up with me in 3 months virtually 11/20/2024 1:00 PM EDT [facility] Endocrinology [address] [place] [phone] Valdez Suarez MD [address] [place] [address] [address] [place], [place] [phone] follow up in 6 months documented as of this encounter Visit Diagnoses Not on filedocumented in this encounter Care Teams Scarifier Operator Relationship Specialty Start Date End Date Farhat Cabezas MD PCP - General Family Medicine 01/13/11 Farhat Cabezas MD Referring Family Medicine 01/08/22 Farhat Cabezas MD [address] [place] [address] Referring Family Medicine 07/26/24 documented as of this encounter
--- OUTSIDE RECORDS SUMMARY | 2024-08-17 13:18 | XMS_ITS | Encounter Summary ---
Demographics Address [address] [facility] [place] [address] Home Phone Mobile Phone Email Address Preferred Language ENG Marital Status Single Jehovah'S Witness Affiliation Unknown Race White Ethnic Group Not or Lati no Author Organization [facility] Address [address] [place] [address] Care Team Providers Care Breast Buffer Name Role Phone Farhat Cabezas MD Primary Care Provider [phone] Farhat Cabezas MD Unavailable [phone] Farhat Cabezas MD Unavailable [phone] Source Comments In the event this information is protected by the Federal Confidentiality of Alcohol and Drug AbusePatient Records regulations: The Federal rules restrict any use of the information to criminally investigate or prosecute any alcohol or drug abuse patient.[facility] Encounter Details Date Type Department Care Team (Late st Contact Info) Description 08/04/2021 Patient Msg Neurology [address] [place] [address] Sara Nguyen, MARITZA.VINYL HANGER [address] [facility] 1 [place] [address] Sonata Refill Social History Tobacco Use Types [...] N ot on file 07/19/2021 Data from: https://www.neighborhoodatlas.medicine.[facility]/. Last address used for calculation [...] Contact Info) Description 08/30/2024 9:30 AM EDT [facility] Endocrinology [address] [place] [phone] Greg Nina APRN.VINYL HANGER [address] [place], [place] [phone] diabetes follow up with me in 3 months virtually 11/20/2024 1:00 PM EDT [facility] Endocrinology [address] [place] [address] Valdez Suarez MD [address] [place] [address] [address] [place], [place] [phone] follow up in 6 months documented as of this encounter Visit Diagnoses Not on filedocumented in this encounter Care Teams Breast Buffer Relationship Specialty Start Date End Date Farhat Cabezas MD PCP - General Family Medicine 01/13/11 Farhat Cabezas MD Referring Family Medicine 01/08/22 Farhat Cabezas MD [address] [place] [address] Referring Family Medicine 07/26/24 documented as of this encounter
--- OUTSIDE RECORDS SUMMARY | 2024-08-17 13:18 | XMS_ITS | Encounter Summary ---
Demographics Address [address] [place] [address] Home Phone Mobile Phone Email Address Preferred Language ENG Marital Status Single Zoroastrian Affiliation Unknown Race White Ethnic Group Not or Lati no Author Organization [facility] Address [address] [place] [address] Care Team Providers Care Rock Wool Applicator Name Role Phone Farhat Cabezas MD Primary Care Provider [phone] Farhat Cabezas MD Unavailable [phone] Farhat Cabezas MD Unavailable [phone] Source Comments In the event this information is protected by the Federal Confidentiality of Alcohol and Drug AbusePatient Records regulations: The Federal rules restrict any use of the information to criminally investigate or prosecute any alcohol or drug abuse patient.[facility] Encounter Details Date Type Department Care Team (Late st Contact Info) Description 09/15/2021 [place] [address] Provider, Ccf MRI Screening Questionnaire Completion Required [...] N ot on file 07/19/2021 Data from: https://www.neighborhoodatlas.[facility]/. Last address used for calculation [address] 07/19/2021 Comments No Sex and Gender [...] AM EDT [facility] Endocrinology [address] [place] [address] Greg Nina, MARITZA.COMMERCIAL ENERGY AUDITOR [address] [place] [address] diabetes follow up with me in 3 months virtually 11/20/2024 1:00 PM EDT [facility] Endocrinology [address] [place] [address] Valdez Suarez MD [address] [place] [address] [address] [place], [place] [phone] follow up in 6 months documented as of this encounter Visit Diagnoses Not on filedocumented in this encounter Care Teams Rock Wool Applicator Relationship Specialty Start Date End Date Farhat Cabezas MD PCP - General Family Medicine 01/13/11 Farhat Cabezas MD Referring Family Medicine 01/08/22 [place] [address] [place] [address] Referring Family Medicine 07/26/24 documented as of this encounter
--- OUTSIDE RECORDS SUMMARY | 2024-08-17 13:18 | XMS_ITS | Encounter Summary ---
Demographics Address [address] [facility] [place] [address] Home Phone Mobile Phone Email Address Preferred Language ENG Marital Status Single Confucianist Affiliation Unknown Race White Ethnic Group Not or Lati no Author Organization [facility] Address [facility] [place] [address] Care Team Providers Care Online Marketing Strategist Name Role Phone Farhat Cabezas MD Primary Care Provider [phone] Farhat Cabezas MD Unavailable [phone] Farhat Cabezas MD Unavailable [phone] Source Comments In the event this information is protected by the Federal Confidentiality of Alcohol and Drug AbusePatient Records regulations: The Federal rules restrict any use of the information to criminally investigate or prosecute any alcohol or drug abuse patient.[facility] Encounter Details Date Type Department Care Team (Late st Contact Info) Description 10/12/2023 Get Medical Advice Neurology [address] [place] [address] Thaddeus Diggs MD [address] [place] [address] MRI / lab results Social History [...] lower risk 2 12/21/2022 Data from: https://www.neighborhoodatlas.medicine.[facility]/. Last address used for calculation [...] 08/30/2024 9:30 AM EDT [facility] Endocrinology [address] [place] [phone] Greg Nina, MARITZA.MINE EQUIPMENT DESIGN ENGINEER [address] [place], [place] [phone] diabetes follow up with me in 3 months virtually 11/20/2024 1:00 PM EDT [facility] Endocrinology [address] [place] [phone] Valdez Suarez MD [address] [place] [address] [address] [place], [place] 0488535 follow up in 6 months documented as of this encounter Visit Diagnoses Not on filedocumented in this encounter Care Teams Online Marketing Strategist Relationship Specialty Start Date End Date Farhat Cabezas MD PCP - General Family Medicine 01/13/11 Farhat Cabezas MD Referring Family Medicine 01/08/22 Farhat Cabezas MD [address] [place] [address] Referring Family Medicine 07/26/24 documented as of this encounter
--- OUTSIDE RECORDS SUMMARY | 2024-08-17 13:18 | XMS_ITS | Encounter Summary ---
Demographics Address [address] [place] [address] Home Phone Mobile Phone Email Address Preferred Language ENG Marital Status Single Shinto Affiliation Unknown Race White Ethnic Group Not or Lati no Author Organization [facility] Address [address] [place] [address] Care Team Providers Care Data Systems Manager Name Role Phone Farhat Cabezas MD Primary Care Provider [phone] Farhat Cabezas MD Unavailable [phone] Farhat Cabezas MD Unavailable [phone] Source Comments In the event this information is protected by the Federal Confidentiality of Alcohol and Drug AbusePatient Records regulations: The Federal rules restrict any use of the information to criminally investigate or prosecute any alcohol or drug abuse patient.[facility] Encounter Details Date Type Department Care Team (Late st Contact Info) Description 06/09/2021 Get Medical Advice Endocrinology [address] [facility] [place], [place] [address] Valdez Suarez MD [address] [place], [place] [address] [facility] [place] [address] Thyroid antboties Social History Tobacco Use [...] ot on file 01/16/2020 Data from: https://www.neighborhoodatlas.medicine.[facility]/. Last address used for calculation Not [...] 9:30 AM EDT [facility] Endocrinology [address] [place] [phone] Greg Nina APRN.OFFICE TECHNOLOGY PROFESSOR [address] [place], [place] [phone] diabetes follow up with me in 3 months virtually 11/20/2024 1:00 PM EDT [facility] Endocrinology [address] [place] [phone] Valdez Suarez MD [address] [place] [address] [address] [place], [place] 8172[address] follow up in 6 months documented as of this encounter Visit Diagnoses Not on filedocumented in this encounter Care Teams Data Systems Manager Relationship Specialty Start Date End Date Farhat Cabezas MD PCP - General Family Medicine 01/13/11 Farhat Cabezas MD Referring Family Medicine 01/08/22 Farhat Cabezas MD [address] [place] [address] Referring Family Medicine 07/26/24 documented as of this encounter
--- OUTSIDE RECORDS SUMMARY | 2024-08-17 13:18 | XMS_ITS | Encounter Summary ---
Demographics Address [address] [place] [address] Home Phone Mobile Phone Email Address Preferred Language ENG Marital Status Single Mandaen Affiliation Unknown Race White Ethnic Group Not or Lati no Author Organization [facility] Address [address] [place] [address] Care Team Providers Care Pinner Printed Circuit Boards Name Role Phone Farhat Cabezas MD Primary Care Provider [phone] Farhat Cabezas MD Unavailable [phone] Farhat Cabezas MD Unavailable [phone] Source Comments In the event this information is protected by the Federal Confidentiality of Alcohol and Drug AbusePatient Records regulations: The Federal rules restrict any use of the information to criminally investigate or prosecute any alcohol or drug abuse patient.[facility] Encounter Details Date Type Department Care Team (Late st Contact Info) Description 02/04/2024 Patient [facility] -[address] [place] [address] Renetta Moore RPh At your next appointment, choose [facility]. Social History Tobacco Use Types Packs/Day [...] is lower risk 2 12/21/2022 Data from: https://www.neighborhoodatlas.[facility]/. Last address used for calculation [address] [...] 08/30/2024 9:30 AM EDT [facility] Endocrinology [address] [place] [address] Greg Nina APRN.INSTRUCTIONAL SUPERVISOR [address] [place], [place] 6505639 diabetes follow up with me in 3 months virtually 11/20/2024 1:00 PM EDT [facility] Endocrinology [address] [place] [phone] Valdez Suarez MD [address] [place] [place] [address] [address] [place], [place] 6921435 follow up in 6 months documented as of this encounter Visit Diagnoses Not on filedocumented in this encounter Care Teams Pinner Printed Circuit Boards Relationship Specialty Start Date End Date Farhat Cabezas MD PCP - General Family Medicine 01/13/11 Farhta Cabezas MD Referring Family Medicine 01/08/22 [place] [address] [place] [address] Referring Family Medicine 07/26/24 documented as of this encounter
--- OUTSIDE RECORDS SUMMARY | 2024-08-17 13:18 | XMS_ITS | Encounter Summary ---
Demographics Address [address] [place] [address] Home Phone Mobile Phone Email Address Preferred Language ENG Marital Status Single Restorationist Affiliation Unknown Race White Ethnic Group Not or Lati no Author Organization [facility] Address [address] [place] [address] Care Team Providers Care Group Sales Manager Name Role Phone Farhat Cabezas MD Primary Care Provider [phone] Farhat Cabezas MD Unavailable [phone] Farhat Cabezas MD Unavailable [phone] Source Comments In the event this information is protected by the Federal Confidentiality of Alcohol and Drug AbusePatient Records regulations: The Federal rules restrict any use of the information to criminally investigate or prosecute any alcohol or drug abuse patient.[facility] Encounter Details Date Type Department Care Team (Late st Contact Info) Description 04/22/2021 Get Medical Advice [facility]ocrinology [address] [facility], [place] [phone] Valdez Suarez MD [address] [place] [address] [place] [address] Suspicious nodule / thyroid Social History Tobacco [...] ot on file 01/16/2020 Data from: https://www.neighborhoodatlas.medicine.[facility]/. Last address used for calculation Not [...] with repeat US in 6 months, sent [employer] message documented in this encounter Plan of Treatment Upcoming Encounters Date Type Department Care Team (Late st Contact Info) Description 08/30/2024 9:30 AM EDT [facility] Endocrinology [address] [place] [phone] Greg Nina APRN.[facility] [address] [place] [address] diabetes follow up with me in 3 months virtually 11/20/2024 1:00 PM EDT [facility] [address] [place] [address] Valdez Suarez MD [address] [place] [address] [place] [address] follow up in 6 months documented as of this encounter Visit Diagnoses Diagnosis Hx of papillary thyroid carcinoma- Primary Personal history of malignant neoplasm of thyroid documented in this encounter Care Teams Group Sales Manager Relationship Specialty Start Date End Date Farhat Cabezas MD PCP - General Family Medicine 01/13/11 Farhat Cabezas MD Referring Family Medicine 01/08/22 Farhat Cabezas MD [address] [place] [address] Referring Family Medicine 07/26/24 documented as of this encounter
--- OUTSIDE RECORDS SUMMARY | 2024-08-17 13:18 | XMS_ITS | Encounter Summary ---
Author Organization [facility] Address [facility] [place] [address] Care Team Providers Care Technical Photographer Name Role Phone Farhat Cabezas MD Primary Care Provider [phone] Farhat Cabezas MD Unavailable [phone] Farhat Cabezas MD Unavailable [phone] Source Comments In the event this [...] Get Medical Advice General Surgery BMI PSYL [address] [place], [place] [phone] Graciela Hoyt, PhD [address] [phone] RE: Non-Urgent Medical Question Social History Tobacco [...] Contact Info) Description 08/30/2024 9:30 AM EDT [facility] Endocrinology [address] [place] [address] Greg Nina APRN.KIDNEY PULLER [address] [place] [address] diabetes follow up with me in 3 months virtually 11/20/2024 1:00 PM EDT [facility] Endocrinology [address] [place] [address] Valdez Suarez MD [address] [place] [address] [address] [place], [place] [phone] follow up in 6 months documented as of this encounter Visit Diagnoses Not on filedocumented in this encounter Care Teams Technical Photographer Relationship Specialty Start Date End Date Farhat Cabezas MD PCP - General Family Medicine 01/13/11 Farhat Cabezas MD Referring Family Medicine 01/08/22 Farhat Cabezas MD [address] [place] [address] Referring Family Medicine 07/26/24 documented as of this encounter
--- OUTSIDE RECORDS SUMMARY | 2024-08-17 13:18 | XMS_ITS | Encounter Summary ---
Demographics Address [address] [facility] [place] [address] Home Phone Mobile Phone Email Address Preferred Language ENG Marital Status Single Catholic Affiliation Unknown Race White Ethnic Group Not or Lati no Author Organization [facility] Address [facility] [place] [address] Care Team Providers Care Educational Therapy Teacher Name Role Phone Farhat Cabezas MD Primary Care Provider [phone] Farhat Cabezas MD Unavailable [phone] Farhat Cabezas MD Unavailable [phone] Source Comments In the event this information is protected by the Federal Confidentiality of Alcohol and Drug AbusePatient Records regulations: The Federal rules restrict any use of the information to criminally investigate or prosecute any alcohol or drug abuse patient.[facility] Encounter Details Date Type Department Care Team (Late st Contact Info) Description 09/18/2021 Patient Msg Sleep Psychology [address] [place] [address] Marlene [place] PhD [address] [facility] [address] [place] [phone] follow up Social History Tobacco Use Types [...] N ot on file 07/19/2021 Data from: https://www.neighborhoodatlas.medicine.[facility]/. Last address used for calculation [address] [...] Info) Description 08/30/2024 9:30 AM EDT [facility] Endocrinology [address] [place] [address] Greg Nina APRN.INTERLOCKING AND SIGNAL MECHANIC [address] [place] [address] diabetes follow up with me in 3 months virtually 11/20/2024 1:00 PM EDT [facility] Endocrinology [address] [place] [address] Valdez Suarez MD [address] [place] [address] [address] [place], [place] [phone] follow up in 6 months documented as of this encounter Visit Diagnoses Not on filedocumented in this encounter Care Teams Educational Therapy Teacher Relationship Specialty Start Date End Date Farhat Cabezas MD PCP - General Family Medicine 01/13/11 Farhat Cabezas MD Referring Family Medicine 01/08/22 Farhat Cabezas MD [address] [place] [address] Referring Family Medicine 07/26/24 documented as of this encounter
--- OUTSIDE RECORDS SUMMARY | 2024-08-17 13:18 | XMS_ITS | Encounter Summary ---
Demographics Address [address] [place] [address] Home Phone Mobile Phone Email Address Preferred Language ENG Marital Status Single Hinduism Affiliation Unknown Race White Ethnic Group Not or Lati no Author Organization [facility] Address [address] [place] [address] Care Team Providers Care Organizational Consultant Name Role Phone Farhat Cabezas MD Primary Care Provider [phone] Farhat Cabezas MD Unavailable [phone] Farhat Cabezas MD Unavailable [phone] Source Comments In the event this information is protected by the Federal Confidentiality of Alcohol and Drug AbusePatient Records regulations: The Federal rules restrict any use of the information to criminally investigate or prosecute any alcohol or drug abuse patient.[facility] Encounter Details Date Type Department Care Team (Late st Contact Info) Description 11/16/2023 [place] [address] Provider, Ccf MRI Screening Questionnaire Completion Required [...] lower risk 2 12/21/2022 Data from: https://www.neighborhoodatlas.[facility]/. Last address used for calculation [...] 08/30/2024 9:30 AM EDT [facility] Endocrinology [address] [place] [phone] Greg Nina APRN.MARKETING CONTENT COORDINATOR [address] [place] [address] diabetes follow up with me in 3 months virtually 11/20/2024 1:00 PM EDT [facility] Endocrinology [address] [place] [address] Valdez Suarez MD [address] [place] [address] [place] [address] follow up in 6 months documented as of this encounter Visit Diagnoses Not on filedocumented in this encounter Care Teams Organizational Consultant Relationship Specialty Start Date End Date Farhat Cabezas MD PCP - General Family Medicine 01/13/11 Farhat Cabezas MD Referring Family Medicine 01/08/22 Farhat Cabezas MD [address] [place] [address] Referring Family Medicine 07/26/24 documented as of this encounter
--- OUTSIDE RECORDS SUMMARY | 2024-08-17 13:18 | XMS_ITS | Encounter Summary ---
Demographics Address [address] [facility] [place] [address] Home Phone Mobile Phone Email Address Preferred Language ENG Marital Status Single Denominational Affiliation Unknown Race White Ethnic Group Not or Lati no Author Organization [facility] Address [address] [place] [address] Care Team Providers Care Bedspread Inspector Name Role Phone Farhat Cabezas MD Primary Care Provider [phone] Farhat Cabezas MD Unavailable [phone] Farhat Cabezas MD Unavailable [phone] Source Comments In the event this information is protected by the Federal Confidentiality of Alcohol and Drug AbusePatient Records regulations: The Federal rules restrict any use of the information to criminally investigate or prosecute any alcohol or drug abuse patient.[facility] Encounter Details Date Type Department Care Team (Late st Contact Info) Description 08/01/2021 Patient Msg Ctr for Integrative Med [address] [facility] [place] [id number] Provider, Ccf Appointment Request Social History Tobacco [...] N ot on file 07/19/2021 Data from: https://www.neighborhoodatlas.[facility]/. Last address used for calculation [address]09 [facility] 07/19/2021 Comments No Sex and Gender [...] Description 08/30/2024 9:30 AM EDT [facility] Endocrinology [address] [place] [address] Greg Nina, MARITZA.[employer] [address] [place] [address] diabetes follow up with me in 3 months virtually 11/20/2024 1:00 PM EDT [facility] Endocrinology [address] [place] [address] Valdez Suarez MD [address] [place] [address] [place] [address] follow up in 6 months documented as of this encounter Visit Diagnoses Not on filedocumented in this encounter Care Teams Bedspread Inspector Relationship Specialty Start Date End Date Farhat Cabezas MD PCP - General Family Medicine 01/13/11 Farhat Cabezas MD Referring Family Medicine 01/08/22 Farhat Cabezas MD [address] [place] [address] Referring Family Medicine 07/26/24 documented as of this encounter
--- OUTSIDE RECORDS SUMMARY | 2024-08-17 13:18 | XMS_ITS | Encounter Summary ---
Demographics Address [address] [place] [address] Home Phone Mobile Phone Email Address Preferred Language ENG Marital Status Single Uatsdin Affiliation Unknown Race White Ethnic Group Not or Lati no Author Organization [facility] Address [address] [place] [address] Care Team Providers Care Talent Acquisition Sourcer Name Role Phone Farhat Cabezas MD Primary Care Provider [phone] Farhat Cabezas MD Unavailable [phone] Farhat Cabezas MD Unavailable [phone] Source Comments In the event this information is protected by the Federal Confidentiality of Alcohol and Drug AbusePatient Records regulations: The Federal rules restrict any use of the information to criminally investigate or prosecute any alcohol or drug abuse patient.[facility] Encounter Details Date Type Department Care Team (Late st Contact Info) Description 10/05/2023 Patient Msg Cardiology [address] [facility] [place] [address] Provider, Ccf Appointment needs scheduling Social History [...] is lower risk 2 12/21/2022 Data from: https://www.neighborhoodatlas.[facility]/. Last address used for calculation [address] [...] AM EDT [facility] Endocrinology [address] [place] [address] Greg Nina APRN.SHIP SELF DEFENSE SYSTEM MK1 OPERATOR [address] [place] [address] diabetes follow up with me in 3 months virtually 11/20/2024 1:00 PM EDT Distance [facility] Endocrinology [address] [place] [address] Valdez Suarez MD [address] [place] [address] [address] [place], [place] 9457135 follow up in 6 months documented as of this encounter Visit Diagnoses Not on filedocumented in this encounter Care Teams Talent Acquisition Sourcer Relationship Specialty Start Date End Date Farhat Cabezas MD PCP - General Family Medicine 01/13/11 Farhat Cabezas MD Referring Family Medicine 01/08/22 Farhat Cabezas MD [address] [place] [address] Referring Family Medicine 07/26/24 documented as of this encounter
--- OUTSIDE RECORDS SUMMARY | 2024-08-17 13:18 | XMS_ITS | Encounter Summary ---
Demographics Address [address] [place] [address] Home Phone Mobile Phone Email Address Preferred Language ENG Marital Status Single Samaritan Affiliation Unknown Race White Ethnic Group Not or Lati no Author Organization [facility] Address [address] [place] [address] Care Team Providers Care Optometrist Name Role Phone Farhat Cabezas MD Primary Care Provider [phone] Farhat Cabezas MD Unavailable [phone] Farhat Cabezas MD Unavailable [phone] Source Comments In the event this information is protected by the Federal Confidentiality of Alcohol and Drug AbusePatient Records regulations: The Federal rules restrict any use of the information to criminally investigate or prosecute any alcohol or drug abuse patient.[facility] Encounter Details Date Type Department Care Team (Late st Contact Info) Description 05/27/2021 Get Medical Advice BMI [facility] REJ [address] [facility] [place] [place], [place] [phone] Rachel Yi MD [address] [place] [address] weight managment Social History Tobacco [...] N ot on file 01/16/2020 Data from: https://www.neighborhoodatlas.medicine.[facility]/. Last [...] 08/30/2024 9:30 AM EDT [facility] Endocrinology [address] [place] [address] Greg Nina APRN.RV REPAIR TECHNICIAN [address] [place] [address] diabetes follow up with me in 3 months virtually 11/20/2024 1:00 PM EDT [facility] Endocrinology [address] [place] [address] Valdez Suarez MD [address] [place] [address] [address] [place], [place] [phone] follow up in 6 months documented as of this encounter Visit Diagnoses Not on filedocumented in this encounter Care Teams Optometrist Relationship Specialty Start Date End Date Farhat Cabezas MD PCP - General Family Medicine 01/13/11 Farhat Cabezas MD Referring Family Medicine 01/08/22 Farhat Cabezas MD [address] [place] [address] Referring Family Medicine 07/26/24 documented as of this encounter
--- OUTSIDE RECORDS SUMMARY | 2024-08-17 13:18 | XMS_ITS | Encounter Summary ---
Demographics Address [address] [place] [address] Home Phone Mobile Phone Email Address Preferred Language ENG Marital Status Single Anabaptism Affiliation Unknown Race White Ethnic Group Not or Lati no Author Organization [facility] Address [address] [place] [address] Care Team Providers Care Cold Press Operator Name Role Phone Farhat Cabezas MD Primary Care Provider [phone] Farhat Cabezas MD Unavailable [phone] Farhat Cabezas MD Unavailable [phone] Source Comments In the event this information is protected by the Federal Confidentiality of Alcohol and Drug AbusePatient Records regulations: The Federal rules restrict any use of the information to criminally investigate or prosecute any alcohol or drug abuse patient.[facility] Encounter Details Date Type Department Care Team (Late st Contact Info) Description 11/23/2023 Patient Msg Radiology 5700 [place] [address] Provider, Cc CT Scan 12/14/2023 Social History [...] is lower risk 2 12/21/2022 Data from: https://www.neighborhoodatlas.[facility]/. Last address used for [...] Info) Description 08/30/2024 9:[address] [facility] Endocrinology [address] [place] [address] Greg Nina APRN.ACADEMIC DIRECTOR [address] [place] [address] diabetes follow up with me in 3 months virtually 11/20/2024 1:[address] [facility] Endocrinology [address] [place] [address] Valdez Suarez MD [address] [place] [address] [address] [place], [place] [address] follow up in 6 months documented as of this encounter Visit Diagnoses Not on filedocumented in this encounter Care Teams Cold Press Operator Relationship Specialty Start Date End Date Farhat Cabezas MD PCP - General Family Medicine 01/13/11 Farhat Cabezas MD Referring Family Medicine 01/08/22 Farhat Cabezas MD [address] [place] [address] Referring Family Medicine 07/26/24 documented as of this encounter
--- OUTSIDE RECORDS SUMMARY | 2024-08-17 13:18 | XMS_ITS | Encounter Summary ---
Demographics Address [address] [place] [address] Home Phone Mobile Phone Email Address Preferred Language ENG Marital Status Single Bahai Affiliation Unknown Race White Ethnic Group Not or Lati no Author Organization [facility] Address [address] [place] [address] Care Team Providers Care Pressure Tank Operator Name Role Phone Farhat Cabezas MD Primary Care Provider [phone] Farhat Cabezas MD Unavailable [phone] Farhat Cabezas MD Unavailable [phone] Source Comments In the event this information is protected by the Federal Confidentiality of Alcohol and Drug AbusePatient Records regulations: The Federal rules restrict any use of the information to criminally investigate or prosecute any alcohol or drug abuse patient.[facility] Encounter Details Date Type Department Care Team (Late st Contact Info) Description 10/25/2023 Get Medical Advice Gastroenterology [address] [address] Adilene Morgan APRN.[facility] [address] [place] [address] Question Social History Tobacco Use Types Packs/Day [...] risk 2 12/21/2022 Data from: https://www.neighborhoodatlas.medicine.[facility]/. Last address used for calculation [address] [...] [facility] Endocrinology [address] [place] [address] Greg Nina APRN.TRANSPORTATION SALES CONSULTANT [address] [place] [address] diabetes follow up with me in 3 months virtually 11/20/2024 1:00 PM EDT [facility] Endocrinology [address] [place] [address] Valdez Suarez MD [address] [place] [address] [address] [place], [place] [address]67[address] follow up in 6 months documented as of this encounter Visit Diagnoses Not on filedocumented in this encounter Care Teams Pressure Tank Operator Relationship Specialty Start Date End Date Farhat Cabezas MD PCP - General Family Medicine 01/13/11 Farhat Cabezas MD Referring Family Medicine 01/08/22 [place] [address] [place] [address] Referring Family Medicine 07/26/24 documented as of this encounter
--- OUTSIDE RECORDS SUMMARY | 2024-08-17 13:18 | XMS_ITS | Encounter Summary ---
Demographics Address [address] [facility] [place] [address] Home Phone Mobile Phone Email Address Preferred Language ENG Marital Status Single Episcopal Affiliation Unknown Race White Ethnic Group Not or Lati no Author Organization [facility] Address [address] [place] [address] Care Team Providers Care Porter Bath Name Role Phone Farhat Cabezas MD Primary Care Provider [phone] Farhat Cabezas MD Unavailable [phone] Farhat Cabezas MD Unavailable [phone] Source Comments In the event this information is protected by the Federal Confidentiality of Alcohol and Drug AbusePatient Records regulations: The Federal rules restrict any use of the information to criminally investigate or prosecute any alcohol or drug abuse patient.[facility] Encounter Details Date Type Department Care Team (Late st Contact Info) Description 05/25/2021 Patient Msg Ctr for Integrative Med [address] [facility] [place] [id number] Provider, Ccf Request an Appointment Social History [...] N ot on file 01/16/2020 Data from: https://www.neighborhoodatlas.[facility]/. Last address used for calculation Not [...] AM EDT [facility] Endocrinology [address] [place] [address] Greg Nina, SALES ATTENDANT BUILDING MATERIALS.MERCHANDISE PRESENTATION ASSOCIATE [address] [place], [place] [phone] diabetes follow up with me in 3 months virtually 11/20/2024 1:00 PM EDT [facility] Endocrinology [address] [place] [address] Valdez Suarez MD [address] [place] [address] [place] [address] follow up in 6 months documented as of this encounter Visit Diagnoses Not on filedocumented in this encounter Care Teams Porter Bath Relationship Specialty Start Date End Date Farhat Cabezas MD PCP - General Family Medicine 01/13/11 Farhat Cabezas MD Referring Family Medicine 01/08/22 Farhat Cabezas MD [address] [place] [address] Referring Family Medicine 07/26/24 documented as of this encounter
--- OUTSIDE RECORDS SUMMARY | 2024-08-17 13:18 | XMS_ITS | Encounter Summary ---
Demographics Address [address] [place] [address] Home Phone Mobile Phone Email Address Preferred Language ENG Marital Status Single Methodist Affiliation Unknown Race White Ethnic Group Not or Lati no Author Organization [facility] Address [address] [place] [address] Care Team Providers Care Machine Plate Stacker Name Role Phone Farhat Cabezas MD Primary Care Provider [phone] Farhat Cabezas MD Unavailable [phone] Farhat Cabezas MD Unavailable [phone] Source Comments In the event this information is protected by the Federal Confidentiality of Alcohol and Drug AbusePatient Records regulations: The Federal rules restrict any use of the information to criminally investigate or prosecute any alcohol or drug abuse patient.[facility] Encounter Details Date Type Department Care Team (Late st Contact Info) Description 11/15/2023 Patient Msg Cardiology [address] [place] [address] Provider, Sheldon Abreu 11/16 Appointment Canceled Social [...] lower risk 2 12/21/2022 Data from: https://www.neighborhoodatlas.[facility]/. Last address used for calculation [...] Description 08/30/2024 9:30 AM EDT [facility] Endocrinology [address] [place] [address] Greg Nina APRN.AUTOMOTIVE SHOP FOREMAN [address] [place], [place] 219[address] diabetes follow up with me in 3 months virtually 11/20/2024 1:00 PM EDT [facility] Endocrinology [address] [place] [address] Valdez Suarez MD [address] [place] [address] [address] [place], [place] 6971135 follow up in 6 months documented as of this encounter Visit Diagnoses Not on filedocumented in this encounter Care Teams Machine Plate Stacker Relationship Specialty Start Date End Date Farhat Cabezas MD PCP - General Family Medicine 01/13/11 Farhat Cabezas MD Referring Family Medicine 01/08/22 Farhat Cabezas MD [address] [place] [address] Referring Family Medicine 07/26/24 documented as of this encounter
--- OUTSIDE RECORDS SUMMARY | 2024-08-17 13:18 | XMS_ITS | Encounter Summary ---
Author Organization [facility] Address [address] [place] [address] Care Team Providers Care Grinder Carbon Plant Name Role Phone Farhat Cabezas MD Primary Care Provider [phone] Farhat Cabezas MD Unavailable [phone] Farhat Cabezas MD Unavailable [phone] Source Comments In the event this information is protected by the Federal Confidentiality of Alcohol and Drug AbusePatient Records regulations: The Federal rules restrict any use of the information to criminally investigate or prosecute any alcohol or drug abuse patient.[facility] Encounter Details Date Type Department Care Team (Late st Contact Info) Description 08/04/2018 Patient Msg General Surgery [address] [place] [address] Provider, Ccf Medication refill Social History Tobacco [...] 08/30/2024 9:30 AM EDT [facility] Endocrinology [address] [place] [address] Greg Nina APRN.FOOD SERVICES MANAGER [address] [place] [address] diabetes follow up with me in 3 months virtually 11/20/2024 1:00 PM EDT [facility] Endocrinology [address] [place] [address] Valdez Suarez MD [address] [place] [address] [place], [place] 67[address] follow up in 6 months documented as of this encounter Visit Diagnoses Not on filedocumented in this encounter Care Teams Grinder Carbon Plant Relationship Specialty Start Date End Date Farhat Cabezas MD PCP - General Family Medicine 01/13/11 Farhat Cabezas MD Referring Family Medicine 01/08/22 Farhat Cabezas MD 12[address] [place] [address] Referring Family Medicine 07/26/24 documented as of this encounter
--- OUTSIDE RECORDS SUMMARY | 2024-08-17 13:18 | XMS_ITS | Encounter Summary ---
Demographics Address [address] [facility] [place] [address] Home Phone Mobile Phone Email Address Preferred Language ENG Marital Status Single Jainism Affiliation Unknown Race White Ethnic Group Not or Lati no Author Organization [facility] Address [address] [place] [address] Care Team Providers Care Travel Med Surg Rn Name Role Phone Farhat Cabezas MD Primary Care Provider [phone] Farhat Cabezas MD Unavailable [phone] Farhat Cabezas MD Unavailable [phone] Source Comments In the event this information is protected by the Federal Confidentiality of Alcohol and Drug AbusePatient Records regulations: The Federal rules restrict any use of the information to criminally investigate or prosecute any alcohol or drug abuse patient.[facility] Encounter Details Date Type Department Care Team (Late st Contact Info) Description 08/01/2021 Patient Msg Rheumatology [address] [address] Lorenzo Perry DO 4302 [facility] [address] [place] [address] Request an Appointment Social History Tobacco Use [...] N ot on file 07/19/2021 Data from: https://www.neighborhoodatlas.medicine.[facility]/. Last address used for calculation [address] 07/19/2021 Comments No Sex and [...] 9:30 AM EDT [facility] Endocrinology [address] [place] [address] Greg Nina APRN.FRENCH TEACHER [address] [place] [address] diabetes follow up with me in 3 months virtually 11/20/2024 1:00 PM EDT [facility] Endocrinology [address] [place] [address] Valdez Suarez MD [address] [place] [address] [address] [place], [place] 8005435 follow up in 6 months documented as of this encounter Visit Diagnoses Not on filedocumented in this encounter Care Teams Travel Med Surg Rn Relationship Specialty Start Date End Date Farhat Cabezas MD PCP - General Family Medicine 01/13/11 Farhat Cabezas MD Referring Family Medicine 01/08/22 Farhat Cabezas MD [address] [place] [address] Referring Family Medicine 07/26/24 documented as of this encounter
--- OUTSIDE RECORDS SUMMARY | 2024-08-17 13:18 | XMS_ITS | Encounter Summary ---
Demographics Address [address] [place] [place] [address] Home Phone Mobile Phone Email Address Preferred Language ENG Marital Status Single Faith Affiliation Unknown Race White Ethnic Group Not or Lati no Author Organization [facility] Address [address] [place] [address] Care Team Providers Care Detailer School Photographs Name Role Phone Farhat Cabezas MD Primary Care Provider [phone] Farhat Cabezas MD Unavailable [phone] Farhat Cabezas MD Unavailable [phone] Source Comments In the event this information is protected by the Federal Confidentiality of Alcohol and Drug AbusePatient Records regulations: The Federal rules restrict any use of the information to criminally investigate or prosecute any alcohol or drug abuse patient.[facility] Encounter Details Date Type Department Care Team (Late st Contact Info) Description 05/25/2021 Patient Msg BMI [facility] REJ [address] [place], [place] [phone] Rachel Yi MD [address] [place] [address] Request an Appointment Social History [...] N ot on file 01/16/2020 Data from: https://www.neighborhoodatlas.medicine.[facility]/. Last address [...] Contact Info) Description 08/30/2024 9:30 AM EDT [facility] Endocrinology [address] [place] [address] Greg Nina APRN.PYROTECHNIST [address] [place] [address] diabetes follow up with me in 3 months virtually 11/20/2024 1:00 PM EDT [facility] Endocrinology [address] [place] [address] Valdez Suarez MD [address] [place] [address] [address] [place], [place] 4831235 follow up in 6 months documented as of this encounter Visit Diagnoses Not on filedocumented in this encounter Care Teams Detailer School Photographs Relationship Specialty Start Date End Date Farhat Cabezas MD PCP - General Family Medicine 01/13/11 Farhat Cabezas MD Referring Family Medicine 01/08/22 Farhat Cabezas MD [address] [place] [address] Referring Family Medicine 07/26/24 documented as of this encounter
--- OUTSIDE RECORDS SUMMARY | 2024-08-17 13:18 | XMS_ITS | Encounter Summary ---
Demographics Address [address] [place] [address] Home Phone Mobile Phone Email Address Preferred Language ENG Marital Status Single Uatsdin Affiliation Unknown Race White Ethnic Group Not or Lati no Author Organization [facility] Address [address] [place] [address] Care Team Providers Care Traffic And Transport Planner Name Role Phone Farhat Cabezas MD Primary Care Provider [phone] Farhat Cabezas MD Unavailable [phone] Farhat Cabezas MD Unavailable [phone] Source Comments In the event this information is protected by the Federal Confidentiality of Alcohol and Drug AbusePatient Records regulations: The Federal rules restrict any use of the information to criminally investigate or prosecute any alcohol or drug abuse patient.[facility] Encounter Details Date Type Department Care Team (Late st Contact Info) Description 02/15/2024 [place] [address] Provider, Ccf MRI Screening Questionnaire Completion Required [...] risk 2 12/21/2022 Data from: https://www.neighborhoodatlas.[facility]/. Last address used for calculation [address] 12/21/2022 Comments No Sex and [...] 9:30 AM EDT [facility] Endocrinology [address] [place] [address] Greg Nina APRN.PHOTOGRAPHY AND PRINTS CURATOR [address] [place] [address] diabetes follow up with me in 3 months virtually 11/20/2024 1:00 PM EDT Distance [facility] Endocrinology [address] [place] [address] Valdez Suarez MD [address] [place] [address] [place] [address] follow up in 6 months documented as of this encounter Visit Diagnoses Not on filedocumented in this encounter Care Teams Traffic And Transport Planner Relationship Specialty Start Date End Date Farhat Cabezas MD PCP - General Family Medicine 01/13/11 Farhat Cabezas MD Referring Family Medicine 01/08/22 Farhat Cabezas MD [address] [place] [address] Referring Family Medicine 07/26/24 documented as of this encounter
--- OUTSIDE RECORDS SUMMARY | 2024-08-17 13:18 | XMS_ITS | Encounter Summary ---
Demographics Address [address] [place] [address] Home Phone Mobile Phone Email Address Preferred Language ENG Marital Status Single Jain Affiliation Unknown Race White Ethnic Group Not or Lati no Author Organization [facility] Address [address] [place] [address] Care Team Providers Care Field Irrigation Worker Name Role Phone Farhat Cabezas MD Primary Care Provider [phone] Farhat Cabezas MD Unavailable [phone] Farhat Cabezas MD Unavailable [phone] Source Comments In the event this information is protected by the Federal Confidentiality of Alcohol and Drug AbusePatient Records regulations: The Federal rules restrict any use of the information to criminally investigate or prosecute any alcohol or drug abuse patient.[facility] Encounter Details Date Type Department Care Team (Late st Contact Info) Description 03/08/2024 Patient Msg Radiology [address] [place] [address] Provider, Ccf MRI Questionnaire Social History Tobacco [...] is lower risk 7 03/07/2024 Data from: https://www.neighborhoodatlas.[facility]/ . Last address used for [...] AM EDT [facility] Endocrinology [address] [place] [phone] Greg Nina APRN.DIRECTOR OF ACCREDITATION [address] [place] [address] diabetes follow up with me in 3 months virtually 11/20/2024 1:00 PM EDT [facility] Endocrinology [address] [place] [address] Valdez Suarez MD [address] [place] [address] [address] [place] [place], [place] [id number] follow up in 6 months documented as of this encounter Visit Diagnoses Not on filedocumented in this encounter Care Teams Field Irrigation Worker Relationship Specialty Start Date End Date aFrhat Cabezas MD PCP - General Family Medicine 01/13/11 Farhat Cabezas MD Referring Family Medicine 01/08/22 Farhat Cabezas MD [address] [place] [address] Referring Family Medicine 07/26/24 documented as of this encounter
--- OUTSIDE RECORDS SUMMARY | 2024-08-17 13:18 | XMS_ITS | Encounter Summary ---
Demographics Address [address] [place] [address] Home Phone Mobile Phone Email Address Preferred Language ENG Marital Status Single Oriental Orthodox Affiliation Unknown Race White Ethnic Group Not or Lati no Author Organization [facility] Address [address] [place] [address] Care Team Providers Care Control Systems Specialist Name Role Phone Farhat Cabezas MD Primary Care Provider [phone] Farhat Cabezas MD Unavailable [phone] Farhat Cabezas MD Unavailable [phone] Source Comments In the event this information is protected by the Federal Confidentiality of Alcohol and Drug AbusePatient Records regulations: The Federal rules restrict any use of the information to criminally investigate or prosecute any alcohol or drug abuse patient.[facility] Encounter Details Date Type Department Care Team (Late st Contact Info) Description 06/09/2021 Get Medical Advice Neurology [address] [place] [address] Jaelyn Rangel MD NO FORWARDING ADDRESS MRI [...] ot on file 01/16/2020 Data from: https://www.neighborhoodatlas.[facility]/. Last address used [...] Arnold RN - 06/09/2021 2:00 PM EDT [employer] message routed to provider for review. documented in this encounter Plan of Treatment Upcoming Encounters Date Type Department Care Team (Late st Contact Info) Description 08/30/2024 9:30 AM EDT [facility] Endocrinology [address] [place] [phone] Greg Nina APRN.GEOPHYSICAL SUPPORT SPECIALIST [address] [place], [place] [phone] diabetes follow up with me in 3 months virtually 11/20/2024 1:00 PM EDT [facility] Endocrinology [address] [place] [address] Valdez Suarez MD [address] [place] [address] [address] [place], [place] [phone] follow up in 6 months documented as of this encounter Visit Diagnoses Not on filedocumented in this encounter Care Teams Control Systems Specialist Relationship Specialty Start Date End Date Farhat Cabezas MD PCP - General Family Medicine 01/13/11 Farhat Cabezas MD Referring Family Medicine 01/08/22 Farhat Cabezas MD [address] [place] [address] Referring Family Medicine 07/26/24 documented as of this encounter
--- OUTSIDE RECORDS SUMMARY | 2024-08-17 13:18 | XMS_ITS | Encounter Summary ---
Author Organization [facility] Address [address] [place] [address] Care Team Providers Care Forge Shop Machine Repairer Name Role Phone Farhat Cabezas MD Primary Care Provider [phone] Farhat Cabezas MD Unavailable [phone] Farhat Cabezas MD Unavailable [phone] Source Comments In the event this information is protected by the Federal Confidentiality of Alcohol and Drug AbusePatient Records regulations: The Federal rules restrict any use of the information to criminally investigate or prosecute any alcohol or drug abuse patient.[facility] Encounter Details Date Type Department Care Team (Late st Contact Info) Description 10/06/2023 Patient Msg Ophthalmology [address] [place], [place] [phone] Theron Barajas OD [address] [place] [address] Appointment Request Social History Tobacco Use Types [...] is lower risk 2 12/21/2022 Data from: https://www.neighborhoodatlas.medicine.[facility]/. Last address used for calculation [...] 08/30/2024 9:30 AM EDT [facility] Endocrinology [address] [place] [phone] Greg Nina APRN.DIGESTER [address] [place] [address] diabetes follow up with me in 3 months virtually 11/20/2024 1:00 PM EDT [facility] Endocrinology [address] [place] [address] Valdez Suarez MD [address] [place] [address] [address] [place], [place] [phone] follow up in 6 months documented as of this encounter Visit Diagnoses Not on filedocumented in this encounter Care Teams Forge Shop Machine Repairer Relationship Specialty Start Date End Date Farhat Cabezas MD PCP - General Family Medicine 01/13/11 Farhat Cabezas MD Referring Family Medicine 01/08/22 [place] [address] [place] [address] Referring Family Medicine 07/26/24 documented as of this encounter
--- OUTSIDE RECORDS SUMMARY | 2024-08-17 13:18 | XMS_ITS | Encounter Summary ---
Demographics Address [address] [place] [address] Home Phone Mobile Phone Email Address Preferred Language ENG Marital Status Single Adventism Affiliation Unknown Race White Ethnic Group Not or Lati no Author Organization [facility] Address [address] [place] [address] Care Team Providers Care Analytics Consultant Name Role Phone Farhat Cabezas MD Primary Care Provider [phone] Farhat Cabezas MD Unavailable [phone] Farhat Cabezas MD Unavailable [phone] Source Comments In the event this information is protected by the Federal Confidentiality of Alcohol and Drug AbusePatient Records regulations: The Federal rules restrict any use of the information to criminally investigate or prosecute any alcohol or drug abuse patient.[facility] Encounter Details Date Type Department Care Team (Late st Contact Info) Description 03/07/2024 [place] [address] Provider, Ccf MRI Screening Questionnaire Completion Required [...] is lower risk 7 03/07/2024 Data from: https://www.neighborhoodatlas.[facility]/ . Last address used for [...] PM Moan Dubose (Rn) (Hist), RN * Do you [...] Info) Description 08/30/2024 9:30 AM EDT [facility] Endocrinology [address] [place] [address] Greg Nina APRN.INDEPENDENT TRADER [address] [place] [address] diabetes follow up with me in 3 months virtually 11/20/2024 1:00 PM EDT [facility] Endocrinology [address] [place] [address] Valdez Suarez MD [address] [place] [address] [address] [place], [place] [phone] follow up in 6 months documented as of this encounter Visit Diagnoses Not on filedocumented in this encounter Care Teams Analytics Consultant Relationship Specialty Start Date End Date Farhat Cabezas MD PCP - General Family Medicine 01/13/11 Farhat Cabezas MD Referring Family Medicine 01/08/22 Farhat Cabezas MD [address] [place] [address] Referring Family Medicine 07/26/24 documented as of this encounter
--- NOTE | 2024-08-17 13:31 | ECG_ITS ---
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
--- NOTE | 2024-08-17 13:31 | XR_ITS ---
The [address] [address] Patient Name: PRADIP MORFIN MRN: [id number] date: 1975 Sex: F Assigned Patient Location: ER Current Patient Location: ER Accession/Order Number: [id number] Exam Date: 08/17/2024 14:34 Report Date: 08/17/2024 14:35 At the request of: BAYLEE GALLARDO MD Procedure: XR chest 1V XR chest 1V 08/17/2024 2:21 PM SIGNS AND SYMPTOMS: Weakness, multiple falls PROTOCOL: Frontal radiograph of the chest COMPARISON: 07/20/2024 FINDINGS: The trachea is midline. The heart and mediastinal structures are within normal limits. The lung parenchyma is clear. The bony thorax is intact. XR/XR chest 1V IMPRESSION: No acute cardiopulmonary pathology. Impression dictated by: Saravanan Jefferson M.D. 08/17/2024 2:35 PM Dictation Location: [place] [address] Electronically authenticated by: [id number] Y Date: 08/17/2024 14:35
--- NOTE | 2024-08-17 13:31 | ED.GENADUL1 ---
HPI HPI - General Adult General Chief complaint: Weakness Stated complaint: FALL WEAKNESS Time Seen by Provider: 08/17/24 13:14 Source: patient Mode of arrival: walk-in History of Present Illness HPI narrative: 49-year-old female presented to the emergency department for chief complaint of weakness. She states she has been falling recently and she fell last time 3 days ago. She sustained a bruise to her left lower leg. She has been able to ambulate. She had an iron infusion today. No blood in her stool. She does not complain of fever or vomiting or abdominal pain. Related Data Home Medications ?Medication ?Instructions ?Recorded ?Confirmed blood sugar diagnostic (FreeStyle 02/10/23 08/17/24 Lite Strips) blood-glucose meter (FreeStyle 02/10/23 08/17/24 [place] Lite kit) levothyroxine 75 mcg tablet 75 mcg PO QAM 02/10/23 08/17/24 pantoprazole 40 mg tablet,delayed 40 mg PO Q24H PRN stomach upset 02/10/23 08/17/24 release dulaglutide 3 mg/0.5 mL 3 mg subcut QWEEK 05/19/23 08/17/24 subcutaneous pen injector ([facility]) ergocalciferol (vitamin D2) 1,250 1,250 mcg PO .3XWEEK 05/19/23 08/17/24 mcg (50,000 unit) capsule propranolol 10 mg tablet 10 mg PO QID 05/19/23 08/17/24 folic acid 1 mg tablet 1 mg PO DAILY 06/24/23 08/17/24 thiamine HCl (vitamin B1) 100 mg 100 mg PO BID 06/24/23 08/17/24 tablet doxepin 50 mg capsule 50 mg PO DAILY 08/17/24 08/17/24 haloperidol 2 mg tablet 2 mg PRN agitation 08/17/24 paroxetine HCl 20 mg tablet 40 mg PO 08/17/24 paroxetine HCl 40 mg tablet 40 mg PO DAILY 08/17/24 08/17/24 Previous Rx's ?Medication ?Instructions ?Recorded promethazine 25 mg tablet 25 mg PO Q4H PRN nausea and 05/21/23 vomiting #60 tabs tramadol 50 mg tablet 50 mg PO Q8H PRN pain #10 tabs 08/17/24 Allergies Allergy/AdvReac Type Severity Reaction Status Date / Time ibuprofen (From Motrin) Allergy Unknown GI bleed Verified 08/17/24 13:15 scopolamine AdvReac psychosis Verified 08/17/24 13:15 Opioid HPI Opioid Management Most Recent Opioid Data: Last Pain Scale 9 04/05/24, 12:01 Last ORT Total Score 8 06/24/23, 18:22 Last ORT Risk Category High Risk 06/24/23, 18:22 Ur Phencyclidine Scrn, (NEGATIVE) Negative 05/19/23, 12:44 Review of Systems ROS Narrative A ten point review of systems is negative except as noted above. [facility] Medical History (Updated 08/17/24 @ 15:25 by Ronaldo Delgado MD) Headache ?R51.9 - Headache, unspecified (ICD-10) Dizziness ?R42 - Dizziness and giddiness (ICD-10) Paresthesia ?R20.2 - Paresthesia of skin (ICD-10) Alcohol abuse ?F10.10 - Alcohol abuse, uncomplicated (ICD-10) TALIA (obstructive sleep apnea) ?G47.33 - Obstructive sleep apnea (adult) (pediatric) (ICD-10) GI bleed ?K92.2 - Gastrointestinal hemorrhage, unspecified (ICD-10) Incarcerated paraesophageal hernia ?K44.0 - Diaphragmatic hernia with obstruction, without gangrene (ICD-10) Fibromyalgia ?M79.7 - Fibromyalgia (ICD-10) Thyroid cancer ?C73 - Malignant neoplasm of thyroid gland (ICD-10) Dehydration ?E86.0 - Dehydration (ICD-10) Anxiety ?F41.9 - Anxiety disorder, unspecified (ICD-10) Depression ?F32.A - Depression, unspecified (ICD-10) Surgical History (Updated 05/19/23 @ 15:06 by Annemarie Anderson) H/O bariatric surgery ?Z98.84 - Bariatric surgery status (ICD-10) History of cholecystectomy ?Z90.49 - Acquired absence of other specified parts of digestive tract (ICD-10) Family History (Updated 05/19/23 @ 15:02 by Annemarie Anderson) Father Family history of CHF (congestive heart failure) Family history of diabetes mellitus Family history of hypertension Family history of myocardial infarction Family history of stroke Mother Family history of COPD (chronic obstructive pulmonary disease) Grandmother Family history of cancer Family history of diabetes mellitus Social History (Updated 06/24/23 @ 18:20 by Jocelyne Gonzales) Within the past year, how often did you have a drink containing alcohol: 4 or more times a week Within the past year, how many standard drinks containing alcohol did you have on a typical day: 10 or more Within the past year, how often did you have six or more drinks on one occasion: daily or almost daily Total score: 12 Score interpretation: A score of 3 or more indicates drinking is likely to affect patient's safety. 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 Highest level of school completed/degree received: high school graduate In a typical week, how many times do you talk on the telephone with family, friends, or neighbors: 3 or more times per week How often do you get together with friends or relatives: 3 or more times per week How often do you attend caodaism or adventism services: 1-3 times per year Do you belong to any clubs or organizations such as caodaism groups unions, fraternal or athletic groups, or school groups: no Little interest or pleasure in doing things: not at all Feeling down, depressed, or hopeless: not at all Feel stressed/tense/nervous/anxious/difficulty sleeping: very much Life stressors: recent of family or friend Life stressor details: Dad , lost job, son got other son left alone with 3 kids Gender Identity: female Exam Narrative Exam Narrative: Nurses note and vital signs reviewed and patient is not hypoxic. General: The patient appears well and in no apparent distress. Patient is resting comfortably on cart. Skin: Warm, dry, no pallor noted. There is no rash noted. Head: Normocephalic, atraumatic Eye: Normal conjunctiva, no drainage Ears, Nose, Mouth, and Throat: oral mucosa is moist. Nares patent. Cardiovascular: Regular Rate and Rhythm, not Respiratory: Patient is in no distress, no accessory muscle use, lungs are clear to auscultation, no wheezing, rales or rhonchi Back: non-tender GI: Obese and nontender Musculoskeletal: All joints have good range of motion. Bruise present on her left lower leg anteriorly Neurological: A&O, normal speech Psychiatric: Cooperative Constitutional Vital Signs, click to edit/add: Last Vital Signs Temp 98.3 F 08/17/24 13:17 Pulse 86 08/17/24 13:17 Resp 18 08/17/24 13:17 BP 148/100 H 08/17/24 13:17 Pulse Ox 95 08/17/24 13:17 O2 Del Method Room Air 08/17/24 13:17 Course Vital Signs Vital signs: Vital Signs Temperature 98.3 F 08/17/24 13:17 Pulse Rate 86 08/17/24 13:17 Respiratory Rate 18 08/17/24 13:17 Blood Pressure 148/100 H 08/17/24 13:17 Pulse Oximetry 95 08/17/24 13:17 Oxygen Delivery Method Room Air 08/17/24 13:17 Temperature 98.3 F 08/17/24 13:17 Pulse Rate 86 08/17/24 13:17 Respiratory Rate 18 08/17/24 13:17 Blood Pressure 148/100 H 08/17/24 13:17 Pulse Oximetry 95 08/17/24 13:17 Oxygen Delivery Method Room Air 08/17/24 13:17 Medical Decision Making MDM Narrative Medical decision making narrative: Her workup is negative. She is not anemic. She will be discharged home and was given a prescription for Ultram for generalized body pains. Treatment diagnosis and follow-up were discussed with the patient and she will follow-up promptly with her family physician. Differential Diagnosis Differential Diagnosis: Anemia, acute kidney injury, dehydration Lab Data Lab results reviewed: Yes I reviewed the patient's lab results Labs: Lab Results 08/17/24 08/17/24 Range/Units 13:45 13:50 WBC 10.4 (4.0-11.0) 10^3/uL RBC 4.67 (4.20-5.40) 10^6/uL Hgb 12.3 (12.0-16.0) g/dL Hct 39.3 (36.0-48.0) % MCV 84.2 (81.0-99.0) fL MCH 26.3 L (26.7-34.0) pg MCHC 31.3 (29.9-35.2) g/dL RDW 20.5 H (11.0-15.0) % Plt Count 278 (150-450) 10^3/uL MPV 11.6 (9.5-13.5) fL Neut % (Auto) 72.9 (43.0-75.0) % Lymph % (Auto) 17.0 L (20.5-60.0) % [place] % (Auto) 6.9 (1.7-12.0) % Eos % (Auto) 1.9 (0.9-7.0) % Baso % (Auto) 0.5 (0.2-2.0) % Neut # (Auto) 7.6 H (1.4-6.5) 10^3/uL Lymph # (Auto) 1.8 (1.2-3.8) 10^3/uL [place] # (Auto) 0.7 (0.3-0.8) 10^3/uL Eos # (Auto) 0.2 (0.0-0.7) 10^3/uL Baso # (Auto) 0.1 (0.0-0.1) 10^3/uL Abs Immat Gran (auto) 0.08 H (0.00-0.03) 10^3/uL Imm/Tot Granulo (auto) 0.8 H (0.0-0.5) % Sodium 142 (136-145) mmol/L Potassium 3.5 (3.5-5.1) mmol/L Chloride 104 (98-107) mmol/L Carbon Dioxide 34.1 H (21.0-32.0) mmol/L Anion Gap 7.4 BUN 10.0 (7.0-18.0) mg/dL Creatinine 1.21 H (0.55-1.02) mg/dL Est GFR ( Amer) 57 L (>=60 mL/min/1.73m^2) Est GFR (Non-Af Amer) 47 L (>=60 mL/min/1.73m^2) BUN/Creatinine Ratio 8.3 Glucose 137 H (74-106) mg/dL Calcium 9.0 (8.5-10.1) mg/dL Urine Color Yellow (YELLOW) Urine Clarity Clear (CLEAR) Urine pH 6.0 (5.0-9.0) Ur Specific [place] 1.025 (1.005-1.025) Urine Protein 30 A (NEG/TRACE) mg/dL Urine Glucose (UA) Negative (NEGATIVE) mg/dL Urine Ketones Trace A (NEGATIVE) mg/dL Urine Occult Blood Negative (NEGATIVE) Urine Nitrite Negative (NEGATIVE) Urine Bilirubin Small A (NEGATIVE) Urine Urobilinogen 1.0 (0.2-1.0) EU/dL Ur Leukocyte Esterase Negative (NEGATIVE) Urine RBC 2-5 A (0-2) #/HPF Urine WBC 2-5 A (NONE SEEN) #/HPF Ur Squamous Epith Cells Moderate A (NONE/RARE) #/LPF Urine Crystals Seen A (None Seen) #/HPF Calcium Oxalate Crystal Few Urine Bacteria Small A (NONE SEEN) #/HPF Urine Casts Seen A (NONE SEEN) #/LPF Hyaline Casts Rare Urine Mucus Moderate A (NONE SEEN) Ur Culture Indicated? Yes-[facility] Imaging Data Chest x-ray: Radiologist's impression: ITS Impressions Chest X-Ray 08/17/24 13:31 IMPRESSION: No acute cardiopulmonary pathology. Impression dictated by: Saravanan Jefferson M.D. 08/17/2024 2:35 PM Dictation Location: [place] [address] Electronically authenticated by: [id number] Y Date: 08/17/2024 14:35 ECG Data Attestation: I personally reviewed and interpreted this ECG as follows: (EKG on my interpretation shows sinus rhythm with rate of 75 and no acute change) Discharge Plan Discharge Chief Complaint: Weakness Clinical Impression: Generalized weakness Patient Disposition: Home, Self-Care Time of Disposition Decision: 15:24 Condition: Good Mode of Transportation: Private Vehicle Prescriptions / Home Meds: New tramadol 50 mg tablet 50 mg PO Q8H PRN (Reason: pain) Qty: 10 0RF No Action folic acid 1 mg tablet 1 mg PO DAILY thiamine HCl (vitamin B1) 100 mg tablet 100 mg PO BID doxepin 50 mg capsule 50 mg PO DAILY paroxetine HCl 20 mg tablet 40 mg PO paroxetine HCl 40 mg tablet 40 mg PO DAILY haloperidol 2 mg tablet 2 mg PRN (Reason: agitation) (DME) FreeStyle Lite Strips Strip MISCELLANEOUS (DME) blood-glucose meter [FreeStyle [place] Lite] Kit MISCELLANEOUS pantoprazole 40 mg tablet,delayed release (DR/EC) 40 mg PO Q24H PRN (Reason: stomach upset) levothyroxine 75 mcg tablet 75 mcg PO QAM Trulicity 3 mg/0.5 mL pen injector 3 mg SUBCUT QWEEK Patient Comments: WEDS WITH EVEENING MEAL ergocalciferol (vitamin D2) 1,250 mcg (50,000 unit) capsule 1,250 mcg PO .3XWEEK Patient Comments: TUES/THURS/SAT propranolol 10 mg tablet 10 mg PO QID promethazine 25 mg tablet 25 mg PO Q4H PRN (Reason: nausea and vomiting) Qty: 60 11RF Print Language: Latvian Instructions: Weakness (ED) Referrals: Farhat Cabezas MD [Primary Care Provider, Family Practice] - 1 week
[2024-08-17 13:59] LABS: Hematocrit 39.3 % (36.0-48.0); Hemoglobin 12.3 g/dL (12.0-16.0); Immature Granulocytes Abs Auto 0.08 10^3/uL (0.00-0.03); Immature Granulocytes Pct Auto 0.8 % (0.0-0.5); Lymphocytes Absolute Auto 1.8 10^3/uL (1.2-3.8); Mean Corpuscular HGB Conc 31.3 g/dL (29.9-35.2); Mean Corpuscular Hemoglobin 26.3 pg (26.7-34.0); Mean Corpuscular Volume 84.2 fL (81.0-99.0); Platelet Count 278 10^3/uL (150-450); Red Blood Count 4.67 10^6/uL (4.20-5.40); White Blood Count 10.4 10^3/uL (4.0-11.0)
[2024-08-17 13:59] LABS: Glucose Urine UA NEGATIVE (NEGATIVE)
[2024-08-17 14:07] LABS: Anion Gap 7.4; Blood Urea Nitrogen 10.0 mg/dL (7.0-18.0); Calcium 9.0 mg/dL (8.5-10.1); Carbon Dioxide 34.1 mmol/L (21.0-32.0); Chloride 104 mmol/L (98-107); Estimated GFR (African America 57 (>=60 mL/min/1.73m^2); Estimated GFR (Non-African Ame 47 (>=60 mL/min/1.73m^2); Glucose 137 mg/dL (74-106); Potassium 3.5 mmol/L (3.5-5.1); Sodium 142 mmol/L (136-145)
[2024-08-17 14:19] LABS: Cast Seen? SEEN #/LPF (NONE SEEN); Crystals Seen? Seen #/HPF (None Seen); Urine Culture Indicated YES-FRMC
[2024-08-17 15:27] VITALS: PULSE 84; O2SAT 96
== END 2024-08-17 15:30 | disposition home or self-care (01) ==
PROVIDERS: Emergency Provider Emergency Medicine; PCP Family Medicine
DX: R53.1 Weakness (principal); R29.6 Repeated falls; E11.8 Type 2 diabetes mellitus with unspecified complications; Z79.85 Long-term (current) use of injectable non-insulin antidiabetic drugs; D50.9 Iron deficiency anemia, unspecified
CPT/HCPCS: 36415; 71045; 80048; 81001; 85025; 87086; 93005; 96365; 99285; J1439

== ENCOUNTER 2024-08-21 15:35 | Outpatient (OUT) | payer MEDICARE, MEDICAID, SELFPAY ==
--- OUTSIDE RECORDS SUMMARY | 2024-06-27 09:30 | XMS_ITS ---
Author Organization [facility] Address [address] [place] [address] Care Team Providers Care Concrete Floater Name Role Phone Jason Lemon Primary Care Provider REASON FOR VISIT NEW PT EXAM Encounters Encounter Location Date Provider Diagnosis [address] [place] [address] [place] [address] 06/27/2024 Jason Lemon Plan Of Treatment No Information Progress Notes * PRADIP MORFINDOB:1975 (49 yo F)Acc No.[id number]:06/27/2024 Patient: ZENAIDA JOHNSONWNA Provider: Jaquelin Lemon DDS :1975 A ge:48 Y S ex:Female Date:06/27/2024 Address:[address] [place], [id number] Subjective: * Chief Complaints: * 1 . NEW PT EXAM. * Medical History: Objective: * Vitals: Assessment: Plan: * Treatment: * Images: * Electronic signature of Ashkan Lemon DDS on 08/21/2024 at 02:05 PM EDT Sign off status: Pending * Provider: Jaquelin Lemon DDS Date: 06/27/2024 Generated for Any soares/Karen/Banitting on: 08/21/2024 02:05 PM EDT
--- OUTSIDE RECORDS SUMMARY | 2024-07-20 09:07 | XMS_ITS | Continuity of Care Document ---
Author Organization [facility] Address [address] [place] [address] Phone Care Team Providers Care Lip Of Shank Cutter Name Role Phone Bella Tadeo Unavailable Unavaila [...] MINUTES PSYTX PT&/FAMILY 60 MINUTES Acute Detox [facility] Acute Detox [facility] Acute [facility] ROUTINE VENIPUNCTURE DRUG TEST PRSMV DIR OPT OBS URINE TEST Acute Detox [facility] PSYTX PT&/FAMILY 60 MINUTES PSYTX PT&/FAMILY 60 MINUTES PSYTX PT&/FAMILY 60 MINUTES PSYTX PT&/FAMILY 60 MINUTES PSYTX PT&/FAMILY 60 MINUTES PSYTX PT&/FAMILY 60 MINUTES PSYTX PT&/FAMILY 60 MINUTES PSYTX PT&/FAMILY 60 MINUTES PSYTX PT&/FAMILY 60 MINUTES PSYTX PT&/FAMILY 60 MINUTES PSYTX PT&/FAMILY 60 MINUTES PSYTX PT&/FAMILY 60 MINUTES PSYTX PT&/FAMILY 60 MINUTES PSYTX PT&/FAMILY 60 MINUTES Intraoral-periapical 1st Film Gdnwocpww-zhxgnehatv-sigm Additional Nov Bitewig-single Film Nutrit Couns For Control Of [place] Dis Nov Limited Oral Eval PSYTX PT&/FAMILY [...] 60 MINUTES PSYCH DIAGNOSTIC EVALUATION Acute Detox Sportspersons Acute Detox Sport[facility]ersons Acute Detox [facility]ons Acute Detox [facility] Acute Detox [facility] DRUG TEST PRSMV DIR OPT OBS URINE TEST Acute Detox [facility] DRUG TEST PRSMV DIR OPT OBS URINE TEST Acute Detox [facility] Bitewig-single Film Intraoral-periapical 1st Film Ptzraifdx-ucntwuodlt-veix Additional June Rbphocery-wrclagzjlw-xvjt Additional June Oral Hygiene Instruction Limited Oral Eval Acute Detox Sport[facility]ersons Acute Detox [facility] Acute Detox [facility] Acute Detox [facility] DRUG TEST PRSMV DIR OPT OBS URINE TEST Acute Detox [facility] Advance Directives Directive Yes / No Effective Date File Name No Information Encounters Encounter Description Practice Location Reason(s) For Visit Diagnoses Date Provider Providers Copied on Encounter PSYTX PT&/FAMILY 60 MINUTES [facility], [address] [place] [address], [place], [place], [id number] , [place] tel:[phone] [facility] Sedative, hypnotic or anxiolytic dependence, uncomplicatedPost-t raumatic stress disorder, chronicMajor depressive disorder, recurrent severe without psychotic featuresAgoraphobia with panic disorder 5 Antelmo Blanco. [address] [place], [address], . tel: [phone] PSYTX PT&/FAMILY 60 MINUTES [facility], [address] [place] [address], [id number] , [place] tel: [phone] [facility] Sedative, hypnotic or anxiolytic dependence, uncomplicatedPost-t raumatic stress disorder, chronicMajor depressive disorder, recurrent severe without psychotic featuresAgoraphobia with panic disorder 5 Antelmo Blanco. [address] [place], [address], . tel: [phone] PSYTX PT&/FAMILY 60 MINUTES [facility], [address] [place] [address], [id number] , [place] tel: [phone] [facility] Sedative, hypnotic or anxiolytic dependence, uncomplicatedPost-t raumatic stress disorder, chronicMajor depressive disorder, recurrent severe without psychotic featuresAgoraphobia with panic disorder 5 Antelmo Blanco. [address] [place], [address], . tel: [phone] PSYTX PT&/FAMILY 60 MINUTES [facility], [address] [place] [address], [id number] , [place] tel: [phone] [facility] Sedative, hypnotic or anxiolytic dependence, uncomplicatedPost-t raumatic stress disorder, chronicMajor depressive disorder, recurrent severe without psychotic featuresAgoraphobia with panic disorder 5 Antelmo Blanco. [address] [place], [address], . tel: [phone] PSYTX PT&/FAMILY 60 MINUTES [facility], [address] [place] [address], [id number] , tel: [phone] [facility] Sedative, hypnotic or anxiolytic dependence, uncomplicatedPost-t raumatic stress disorder, chronicMajor depressive disorder, recurrent severe without psychotic featuresAgoraphobia with panic disorder Apr-1 - 5 Antelmo Blanco. [address] [place], [address], [place]. tel: [phone] PSYTX PT&/FAMILY 60 MINUTES [facility], [address], [place], [id number] , [place] tel: [phone] [facility] Sedative, hypnotic or anxiolytic dependence, uncomplicatedPost-t raumatic stress disorder, chronicMajor depressive disorder, recurrent severe without psychotic featuresAgoraphobia with panic disorder Apr-0 5 Antelmo Blanco. [address] [place], [address], [place]. tel: [phone] [facility], [address] [place] [address], [id number] , [place] tel: [phone] [facility] No Information Apr- 5 Klidas Brooke. [address], [place], [id number] , [place]. tel: [phone] [facility], [address] [place] [address], [id number] , [place] tel: [phone] [facility] No Information 5 Tom Garza. [address] [place], [address], [place]. tel: [phone] [facility], [address], [place], [id number] , [place] tel: [phone] [facility] No Information Apr- 5 Klidas Brooke. [address] [place] [address], [id number] , [place]. tel: [phone] [facility], [address] [place] [address], [id number] , [place] tel: [phone] [facility] No Information Apr- 5 Klidas Brooke. [address] [place] [address], [id number] , [place]. tel: [phone] PSYTX PT&/FAMILY 60 MINUTES [facility], [address] [place] [address], [id number] , [place] tel: [phone] [facility] Sedative, hypnotic or anxiolytic dependence, uncomplicatedPost-t raumatic stress disorder, chronicMajor depressive disorder, recurrent severe without psychotic featuresAgoraphobia with panic disorder 5 Antelmo Blanco. [address] [place], [address], [place]. tel: [phone] PSYTX PT&/FAMILY 60 MINUTES [facility], [address] [place] [address], [id number] , [place] tel: [phone] [facility] Sedative, hypnotic or anxiolytic dependence, uncomplicatedPost-t raumatic stress disorder, chronicMajor depressive disorder, recurrent severe without psychotic featuresAgoraphobia with panic disorder 5 Antelmo Blanco. [address] [place] [address], [address], [place]. tel: [phone] PSYTX PT&/FAMILY 60 MINUTES [facility], [address] [place] [address], [id number] , [place] tel: [phone] [facility] Sedative, hypnotic or anxiolytic dependence, uncomplicatedPost-t raumatic stress disorder, chronicMajor depressive disorder, recurrent severe without psychotic featuresAgoraphobia with panic disorder 4 Antelmo Blanco. [address] [place] [address], [address], [place]. tel: [phone] PSYTX PT&/FAMILY 60 MINUTES [facility], [address] [place] [address], [id number] , [place] tel: [phone] [facility] Sedative, hypnotic or anxiolytic dependence, uncomplicatedPanic disorder [episodic paroxysmal anxiety]Post-trauma tic stress disorder, chronicMajor depressive disorder, recurrent severe without psychotic features 4 Antelmo Blanco. [address] [place] [address], [address], [place]. tel: [phone] PSYTX PT&/FAMILY 60 MINUTES [facility], [address], [place], [id number] , [place] tel: [phone] [facility] Sedative, hypnotic or anxiolytic dependence, uncomplicatedPanic disorder [episodic paroxysmal anxiety]Post-trauma tic stress disorder, chronicMajor depressive disorder, recurrent severe without psychotic features 4 Antelmo Blanco. [address] [place], [address], [place]. tel: [phone] PSYTX PT&/FAMILY 60 MINUTES [facility], [address], [place], [id number] , [place] tel: [phone] [facility] Sedative, hypnotic or anxiolytic dependence, uncomplicatedPanic disorder [episodic paroxysmal anxiety]Post-trauma tic stress disorder, chronicMajor depressive disorder, recurrent severe without psychotic features 4 Antelmo Blanco. [address] [place], [address], [place]. tel: [phone] PSYTX PT&/FAMILY 60 MINUTES [facility], [address], [place], [id number] , [place] tel: [phone] [facility] Sedative, hypnotic or anxiolytic dependence, uncomplicatedPanic disorder [episodic paroxysmal anxiety]Post-trauma tic stress disorder, chronicMajor depressive disorder, recurrent severe without psychotic features 4 Antelmo Blanco. [address] [place], [address], [place]. tel: [phone] PSYTX PT&/FAMILY 60 MINUTES [facility], [address] [place] [address], [id number] , [place] tel: [phone] [facility] Sedative, hypnotic or anxiolytic dependence, uncomplicatedPanic disorder [episodic paroxysmal anxiety]Post-trauma tic stress disorder, chronicMajor depressive disorder, recurrent severe without psychotic features 4 Antelmo Blanco. [address] [place], [address], [place]. tel: [phone] PSYTX PT&/FAMILY 60 MINUTES [facility], [address], [place], [id number] , [place] tel: [phone] [facility] Sedative, hypnotic or anxiolytic dependence, uncomplicatedPanic disorder [episodic paroxysmal anxiety]Post-trauma tic stress disorder, chronicMajor depressive disorder, recurrent severe without psychotic features 4 Antelmo Blanco. [address] [place], [address], [place]. tel: [phone] PSYTX PT&/FAMILY 60 MINUTES [facility], [address], [place], [id number] , [place] tel: [phone] [facility] Sedative, hypnotic or anxiolytic dependence, uncomplicatedPanic disorder [episodic paroxysmal anxiety]Post-trauma tic stress disorder, chronicMajor depressive disorder, recurrent severe without psychotic features 4 Antelmo Blanco. [address] [place] [address], [address], [place]. tel: [phone] PSYTX PT&/FAMILY 60 MINUTES [facility], [address] [place] [address], [id number] , [place] tel: [phone] [facility] Sedative, hypnotic or anxiolytic dependence, uncomplicatedPanic disorder [episodic paroxysmal anxiety]Post-trauma tic stress disorder, chronicMajor depressive disorder, recurrent severe without psychotic features 4 Antelmo Blanco. [address] [place], [address], [place]. tel: [phone] PSYTX PT&/FAMILY 60 MINUTES [facility], [address] [place] [address], [id number] , [place] tel: [phone] [facility] Sedative, hypnotic or anxiolytic dependence, uncomplicatedPanic disorder [episodic paroxysmal anxiety]Post-trauma tic stress disorder, chronicMajor depressive disorder, recurrent severe without psychotic features 4 Antelmo Blanco. [address] [place], [address], [place]. tel: [phone] PSYTX PT&/FAMILY 60 MINUTES [facility], [address] [place] [address], [id number] , [place] tel: [phone] [facility] Sedative, hypnotic or anxiolytic dependence, uncomplicatedPanic disorder [episodic paroxysmal anxiety]Post-trauma tic stress disorder, chronicMajor depressive disorder, recurrent severe without psychotic features Oct-1 4 Antelmo Blanco. [address] [place], [address], [place]. tel: [phone] PSYTX PT&/FAMILY 60 MINUTES [facility], [address], [place], [id number] , [place] tel: [phone] [facility] Sedative, hypnotic or anxiolytic dependence, uncomplicatedPanic disorder [episodic paroxysmal anxiety]Post-trauma tic stress disorder, chronicMajor depressive disorder, recurrent severe without psychotic features Nov-0 4 Antelmo Blanco. [address] [place], [address], [place]. tel: [phone] [facility], [address] [place] [address], [id number] , [place] tel: [phone] Dental Clinic er (chief complaint) Encounter for screening for dental disorders 0 4 Geoff Dahl. [address], [place], [id number] , [place]. tel: [phone] PSYTX PT&/FAMILY 60 MINUTES [facility], [address] [place] [address], [id number] , [place] tel: [phone] [facility] Sedative, hypnotic or anxiolytic dependence, uncomplicatedPanic disorder [episodic paroxysmal anxiety]Post-trauma tic stress disorder, chronicMajor depressive disorder, recurrent severe without psychotic features Oct-0 4 Antelmo Blanco. [address] [place], [address], [place]. tel: [phone] PSYTX PT&/FAMILY 60 MINUTES [facility], [address] [place] [address], [id number] , [place] tel: [phone] [facility] Panic disorder [episodic paroxysmal anxiety]Post-trauma tic stress disorder, chronicMajor depressive disorder, recurrent, moderate Oct-0 4 Antelmo Blanco. [address] [place], [address], [place]. tel:[phone] PSYTX PT&/FAMILY 60 MINUTES [facility], [address], [place], [id number] , [place] tel: [phone] [facility] Panic disorder [episodic paroxysmal anxiety]Post-trauma tic stress disorder, chronicMajor depressive disorder, recurrent, moderate Oct-0 4 Antelmo Blanco. [address] [place], [address], [place]. tel: [phone] PSYTX PT&/FAMILY 60 MINUTES [facility], [address] [place] [address], [id number] , [place] tel: [phone] [facility] Panic disorder [episodic paroxysmal anxiety]Post-trauma tic stress disorder, chronicMajor depressive disorder, recurrent, moderate Sep-2 4 Antelmo Blanco. [address] [place], [address], [place]. tel: [phone] PSYTX PT&/FAMILY 60 MINUTES [facility], [address] [place] [address], [id number] , [place] tel: [phone] [facility] Panic disorder [episodic paroxysmal anxiety]Post-trauma tic stress disorder, chronic Sep-2 4 Antelmo Blanco. [address] [place], [address], [place]. tel: [phone] PSYTX PT&/FAMILY 60 MINUTES [facility], [address] [place] [address], [id number] , [place] tel: [phone] [facility] Panic disorder [episodic paroxysmal anxiety]Post-trauma tic stress disorder, chronic Sep-1 4 Antelmo Blanco. [address] [place], [address], [place]. tel: [phone] PSYTX PT&/FAMILY 60 MINUTES [facility], [address] [place] [address], [id number] , [place] tel:+ [phone] [facility] Panic disorder [episodic paroxysmal anxiety] Sep- 4 Antelmo Blanco. [address] [place], [address], [place]. tel: [phone] PSYTX PT&/FAMILY 60 MINUTES [facility], [address], [place], [id number] , [place] tel: [phone] [facility] Panic disorder [episodic paroxysmal anxiety] Sep-0 4 Antelmo Blanco. [address] [place], [address], [place]. tel: [phone] [facility], [address] [place] [address], [id number] , [place] tel: [phone] [facility] Panic disorder [episodic paroxysmal anxiety] Sep-0 4 Antelmo Blanco. [address] [place], [address], [place]. tel: [phone] PSYTX PT&/FAMILY 60 MINUTES [facility], [address] [place] [address], [id number] , [place] tel: [phone] [facility] Panic disorder [episodic paroxysmal anxiety]Major depressive disorder, recurrent severe without psychotic features Sep-0 4 Antelmo Blanco. [address] [place], [address], [place]. tel: [phone] PSYTX PT&/FAMILY 60 MINUTES [facility], [address] [place] [address], [id number] , [place] tel: [phone] [facility] Panic disorder [episodic paroxysmal anxiety]Major depressive disorder, recurrent severe without psychotic features 4 Antelmo Blanco. [address] [place], [address], [place]. tel: [phone] PSYTX PT&/FAMILY 60 MINUTES [facility], [address] [place] [address], [id number] , [place] tel: [phone] [facility] Panic disorder [episodic paroxysmal anxiety]Major depressive disorder, recurrent severe without psychotic features 4 Antelmo VEGAReddRadha SandersBella. [address] [place], [address], [place]. tel: [phone] PSYTX PT&/FAMILY 60 MINUTES [facility], [address], [place], [id number] , [place] tel: [phone] [facility] Panic disorder [episodic paroxysmal anxiety]Major depressive disorder, recurrent severe without psychotic features 4 Antelmo Blanco. [address] [place], [address], [place]. tel: [phone] PSYTX PT&/FAMILY 60 MINUTES [facility], [address] [place] [address], [id number] , [place] tel: [phone] [facility] Panic disorder [episodic paroxysmal anxiety]Major depressive disorder, recurrent severe without psychotic features 0 4 Antelmo Sandersnifer. [address] [place], [address], [place]. tel: [phone] PSYTX PT&/FAMILY 60 MINUTES [facility], [address] [place] [address], [id number] , [place] tel: [phone] [facility] Panic disorder [episodic paroxysmal anxiety]Major depressive disorder, recurrent severe without psychotic features 0 4 Antelmo Blanco. [address] [place], [address], [place]. tel: [phone] PSYTX PT&/FAMILY 60 MINUTES [facility], [address] [place] [address], [id number] , [place] tel: [phone] [facility] Panic disorder [episodic paroxysmal anxiety]Major depressive disorder, recurrent severe without psychotic features 0 4 Antelmo Blanco. [address] [place], [address], [place]. tel:[phone] PSYTX PT&/FAMILY 60 MINUTES [facility], [address] [place] [address], [id number] , [place] tel: [phone] [facility] Panic disorder [episodic paroxysmal anxiety]Major depressive disorder, recurrent severe without psychotic features 4 Antelmo LALAGildaRadha SandersBella. [address] [place], [address], [place]. tel: [phone] PSYTX PT&/FAMILY 60 MINUTES [facility], [address], [place], [id number] , [place] tel: [phone] [facility] Panic disorder [episodic paroxysmal anxiety]Major depressive disorder, recurrent severe without psychotic features 4 Antelmo LALAGildaRadha SandersBella. [address] [place], [address], [place]. tel: [phone] PSYTX PT&/FAMILY 60 MINUTES [facility], [address] [place] [address], [id number] , [place] tel: [phone] [facility] Panic disorder [episodic paroxysmal anxiety]Major depressive disorder, recurrent severe without psychotic features 4 Antelmo LALAGildaRadha Bella. [address] [place], [address], [place]. tel: [phone] PSYTX PT&/FAMILY 60 MINUTES [facility], [address] [place] [address], [id number] , [place] tel: [phone] [facility] Panic disorder [episodic paroxysmal anxiety]Major depressive disorder, recurrent severe without psychotic features 4 Antelmo Sandersnifer. [address] [place], [address], [place]. tel: [phone] PSYTX PT&/FAMILY 60 MINUTES [facility], [address] [place] [address], [id number] , [place] tel: [phone] [facility] Panic disorder [episodic paroxysmal anxiety]Major depressive disorder, recurrent severe without psychotic features 4 Antelmo LALAGildaRadha SandersBella. [address] [place], [address], [place]. tel: [phone] PSYCH DIAGNOSTIC EVALUATION [facility], [address] [place] [address], [id number] , [place] tel: [phone] [facility] Panic disorder [episodic paroxysmal anxiety]Major depressive disorder, recurrent severe without psychotic features 4 Antelmo Blanco. [address] [place], [address], [place]. tel: [phone] [facility], [address], [place], [id number] , [place] tel: [phone] [facility] No Information 4 Tom Garza. [address] [place], [address], [place]. tel: [phone] [facility], [address], [place], [id number] , [place] tel: [phone] [facility] No Information 4 Klidas Brooke. [address] [place] [address], [id number] , [place]. tel: [phone] [facility], [address] [place] [address], [id number] , [place] tel: [phone] [facility] Panic disorder [episodic paroxysmal anxiety]Major depressive disorder, recurrent severe without psychotic features 4 Antelmo Blanco. [address] [place], [address], [place]. tel: [phone] [facility], [address], [place], [id number] , [place] tel: [phone] [facility] No Information 4 Klidas Brooke. [address], [place], [id number] , [place]. tel: [phone] [facility], [address], [place], [id number] , [place] tel: [phone] [facility] No Information 4 Klidas Brooke. [address] [place] [address], [id number] , [place]. tel: [phone] [facility], [address] [place] [address], [id number] , [place] tel: [phone] [facility] No Information 4 Klidas Brooke. [address], [place], [id number] , [place]. tel: [phone] [facility], [address], [place], [id number] , [place] tel: [phone] [facility] No Information 4 Klidas Brooke. [address], [place], [id number] , [place]. tel: [phone] [facility], [address], [place], [id number] , [place] tel: [phone] [facility] No Information 4 Tom Garza. [address] [place], [address], [place]. tel: [phone] [facility], [address] [place] [address], [id number] , [place] tel: [phone] Dental [facility] ER (chief complaint) Body mass index [BMI] 45.0-49.9, [facility] for screening for dental disorders 4 Kansandy Dahl. [address], [place], [id number] , [place]. tel: [phone] [facility], [address] [place] [address], [id number] , [place] tel: [phone] [facility] No Information 4 Klidas Brooke. [address], [place], [id number] , [place]. tel: [phone] [facility], [address], [place], [id number] , [place] tel: [phone] [facility] No Information 0 4 Klidas Brooke. [address] [place] [address], [id number] , [place]. tel: [phone] [facility], [address] [place] [address], [id number] , [place] tel: [phone] [facility] No Information Fe 4 Tom Garza. [address] [place], [address], [place]. tel: [phone] [facility], [address] [place] [address], [id number] , [place] tel: [phone] [facility] No Information 4 Lida Cox. [address] [place] [address], [id number] , [place]. tel: [phone] [facility], [address] [place] [address], [id number] , [place] tel: [phone] [facility] No Information 4 Lida Cox. [address] [place] [address], [id number] , [place]. tel: [phone] Family History Family Member Type Diagnosis Age At Onset No Information Payers Payer name Insurance type Covered libertarian ID Authoriza tion(s) No Information Social History [...] Of Treatment Date Type Action Status Goal FIT-DNA. Due on due Goal Tdap. Due on due Goal Hep A. Due on du e Goal Zoster vaccine (1st). Due on due Goal HPV. Due on due Goal Unhealthy drug use screening . Due on due Goal FOBT. Due on due Goal Colonoscopy. Due on 025 due Goal Hepatitis C screening. Due o n due Goal Lipid panel. Due on due Goal Depression screening. Due on due Goal Tdap Vaccine. Due on 2024 due Goal PRAPARE ASSESSMENT. Due on due [...] use screening . Due on due Goal Tdap. Due on [...] Tdap Vaccine. Due on 2024 due Goal Hepatitis C screening. Due o n due Goal Zoster vaccine (). Due on due Goal FIT-DNA. Due on due Goal Mammogram. Due on due Goal Colonoscopy. Due on due Goal Unhealthy drug use screening . Due on due Goal Influenza vaccine. Due on Ap due Goal HPV. Due on due Goal PRAPARE ASSESSMENT. Due on A due Goal Depression screening. Due on due Goal Tdap. Due on due Goal PRAPARE ASSESSMENT. Due on A due Goal CT-Colonography. Due on due Goal FIT. Due on due Goal Hepatitis C screening. Due o n due Goal Tdap Vaccine. Due on 2024 [...] Hep A. Due on du e Goal CT-Colonography. Due on due Goal Influenza vaccine. Due on due Goal Unhealthy drug use screening . Due on due Goal Tdap. Due on [...] Due on due Goal Colonoscopy. Due on 024 due Goal Tdap. Due on due Goal [...] PRAPARE ASSESSMENT. Due on N due Goal Unhealthy drug use screening . [...] Tdap Vaccine. Due on 2023 due Goal Tdap Vaccine. Due on 2023 [...] due Goal Colonoscopy. Due on due Goal Lipid panel. Due [...] vaccine. Due on Oc t due Goal Mammogram. Due on due Goal Lipid panel. Due on due Goal FIT. Due on due Goal Colonoscopy. Due on due Goal PRAPARE ASSESSMENT. Due on O ct due Goal HPV. Due on due Goal [...] du e Goal PRAPARE ASSESSMENT. Due on O due Goal Zoster vaccine (). Due on due Goal PRAPARE ASSESSMENT. Due on O due Goal CT-Colonography. Due on due Goal FIT. Due on due Goal Zoster vaccine (). Due on due Goal Lipid panel. Due on due Goal Mammogram. Due on due Goal FIT-DNA. Due on due Goal Tdap Vaccine. Due on 2023 due Goal Influenza vaccine. Due on Oc due Goal Depression screening. Due on due [...] due Goal FIT-DNA. Due on due Goal Zoster vaccine (). Due on due Goal Colonoscopy. Due on due Goal CT-Colonography. Due on due Goal Hep A. Due on du e Goal Lipid panel. Due on due Goal Tdap Vaccine. Due on 2023 due Goal Influenza vaccine. Due on Oc due Goal Tdap. Due on due Goal PRAPARE ASSESSMENT. Due on O due Goal Unhealthy drug use screening . [...] Due o n due Goal Zoster vaccine (1st). Due on due Goal Depression screening. Due on due Goal CT-Colonography. Due on due Goal PRAPARE ASSESSMENT. Due on O ct due Goal FIT-DNA. Due on due Goal FIT. Due on due Goal Tdap. Due on due Goal Unhealthy drug use screening . Due on due Goal Tdap Vaccine. Due on 2023 due Goal Influenza vaccine. Due on Oc due Goal CT-Colonography. Due on due Goal FOBT. Due on due Goal Influenza vaccine. Due on Oc due Goal Hepatitis C screening. Due o n due Goal Tdap. Due on due Goal HPV. Due on due Goal Depression screening. Due on due Goal Tdap Vaccine. Due on 2023 due Goal FIT. Due on due Goal Hep A. Due on du e Goal PRAPARE ASSESSMENT. Due on O due Goal FIT-DNA. Due on due Goal Zoster vaccine (1st). Due on due Goal Mammogram. Due on due Goal Colonoscopy. Due on due Goal Unhealthy drug use screening . Due on due Goal Lipid panel. Due on due Goal Hep A. Due on du e Goal Zoster vaccine (). Due on due Goal Mammogram. Due on due Goal Lipid panel. Due on due Goal Hepatitis C screening. Due o n due Goal PRAPARE ASSESSMENT. Due on O ct due Goal FIT-DNA. Due on due Goal [...] du e Goal PRAPARE ASSESSMENT. Due on S due [...] Goal Influenza vaccine. Due on due Goal Zoster vaccine (). [...] due Goal Colonoscopy. Due on due Goal Tdap Vaccine. Due on 2023 due Goal Tdap. Due on due Goal Lipid panel. Due on due Goal Zoster vaccine (). Due on due Goal PRAPARE ASSESSMENT. Due on S due Goal FIT. Due on due Goal [...] Goal Influenza vaccine. Due on due Goal Hepatitis C screening. [...] Influenza vaccine. Due on Se due Goal Hep A. Due on du [...] PRAPARE ASSESSMENT. Due on S due Goal Lipid panel. Due on due Goal Hepatitis C screening. Due o n due Goal Hep A. Due on du e Goal Unhealthy drug use screening . Due on due Goal PRAPARE ASSESSMENT. Due on S due Goal FIT. Due on due Goal [...] Goal Influenza vaccine. Due on due Goal Zoster vaccine (1st). Due on due Goal Unhealthy drug use screening . Due on due Goal HPV. Due on due Goal Mammogram. Due on due Goal FIT-DNA. Due on due Goal Lipid panel. Due on due Goal FOBT. Due on due Goal PRAPARE ASSESSMENT. Due on S due Goal Tdap Vaccine. Due on 2023 [...] use screening . Due on due Goal Unhealthy drug use [...] Zoster vaccine (). Due on due Goal Influenza vaccine. Due [...] PRAPARE ASSESSMENT. Due on A due Goal Hep A. Due on du e Goal CT-Colonography. Due on due Goal HPV. [...] Zoster vaccine (). Due on due Goal Influenza vaccine. Due [...] Goal PRAPARE ASSESSMENT. Due on due Goal Dietary manageme nt education, guidance, and counseling completed Appointment Esme Reyes BOOKED History Of Present Illness Encounter Date Complaint History Of Prese nt Illness er ER ER Functional Status Date Functional Assessmen t No Information Instructions Date Instruction Additional Infor jayme Giving encouragement to exercise Related to Body [...]
--- OUTSIDE RECORDS SUMMARY | 2024-08-09 05:30 | XMS_ITS ---
Demographics Address [address] [place] [address] Mobile Email Address Preferred Language en Marital Status unmarried Advent Affiliation Unknown Race White Ethnic Group Not or Lati no Author Organization [facility] [place] Address [address] [place] [address] Care Team Providers Care Asphalt Paver Name Role Phone DAVEY CABEZAS MD Primary Care Provider Davey Cabezas Unavailable [phone] REASON FOR VISIT venofer not covered Encounters Encounter Location Date Provider Diagnosis [facility] [address] [place] [address] 08/09/2024 Davey Cabezas Plan Of Treatment No Information Progress Notes * Esme REYES SDOB: [birth year] (49 yo F)Acc No.[id number]:08/09/2024 Patient: Bekah LUZEdu Esme Radha :1975 A ge:49 Y S ex:Female Address:[address] [place], [address] * true * Date: Generated for Printi ng/Faxing/eTransmitting on: 0 08/21/2024 03:40 PM EDT
--- OUTSIDE RECORDS SUMMARY | 2024-08-15 06:12 | XMS_ITS ---
Demographics Address [address] [place] [address] Mobile Email Address Preferred Language en Marital Status unmarried Worship Affiliation Unknown Race White Ethnic Group Not or Lati no Author Organization [facility] [place] Address [address] [place] [address] Care Team Providers Care Senior Treasury Consultant Name Role Phone DAVEY CABEZAS MD Primary Care Provider Davey Cabezas Unavailable [phone] REASON FOR VISIT refill Medications Medication SIG (Take, Route, Frequency, Duration) Notes Start Date End Date Status chlordiazePOXIDE HCl 10 MG 1 capsule Orally tid PRN for 7 days needs to last a week 08/15/2024 Active Encounters Encounter Location Date Provider Diagnosis [address] [address] 08/15/2024 Davey Raulito Palpitations R00.2 Assessments Encounter Date Diagnosis (ICD Code) Assessment Notes Treatment Notes Treatment Clinical Notes Section Notes 08/15/2024 Palpitations (ICD-10 - R00.2) Plan Of Treatment Medication Medication Name Sig Start Date Stop Date Notes chlordiazePOXIDE HCl 10 MG 1 capsule Ora lly tid PRN for 7 days 08/15/2024 Progress Notes * Esme REYES SDOB: 4 (49 yo F)Acc No.[id number]:08/15/2024 Patient: Mayur JOHNSONtavares Garcia :1975 A ge:49 Y S ex:Female Address:[address], [place], [address] * Refills Refill chlordiazePOXIDE HCl Capsule, 10 MG, Orally, 18, 1 capsule, tid PRN, 7 days, Refills=0 * true * Date: Generated for Any soares/Karen/Banitting on: 0 08/21/2024 03:42 PM EDT
--- OUTSIDE RECORDS SUMMARY | 2024-08-21 10:15 | XMS_ITS ---
Author Organization [facility] [place] Address [address] [place] [address] Care Team Providers Care Senior Design Engineering Specialist Name Role Phone DAVEY PINEDA MD Primary Care Provider [phone] Davey Pineda Unavailable [phone] Allergies Allergen (clinical drug ingredient) Drug/Non Drug Allergy documented on EMR Reaction Allergy Type Onset Date Status metformin metFORMIN HCl stomach upset Drug Allergy Active ibuprofen Ibuprofen stomach upset Drug Allergy Act libertad Reason For Referral Reason PT and aquatic thera py - eval an dtreat Diagnosis 1 Weakness (R53.1) Referral Organization [facility] Referring Provider First Name Davey Referring [...] W/U Status Risk Notes Problem Leg pain (22706474) Leg pain (M79.606) Active confirmed Problem Weakness (07986344) Weakness (R53.1) Active confirmed Vital Signs Blood pressure systolic 118 mm Hg 08/22/19 25 Blood pressure diastolic 70 mm Hg 025 Height 62.5 in 08/21/2024 Weight 269 lbs 08/21/2024 BMI 48.41 kg/m2 08/21/2024 Encounters Encounter Location Date Provider Diagnosis [facility] [address] [place] [address] 08/21/2024 Davey Hoy Leg pain M79.606 and [...] Esme REYES SDOB: [birth year] (49 yo F)Acc No.[id number]:08/21/2024 UNLOCKED PROGRESS NOTE Progress Note Patient: Esme JOHNSON Provider: Kari Pineda ([facility])MD :1975 A ge:49 Y S ex:Female Date:08/21/2024 Address:[facility] [address], [place], [id number] Pcp:DAVEY PINEDA MD Check In:02:04 PM ESTCheck O ut:02:38 PM EST Subjective: * Chief Complaints: * 1 . Left swollen leg. 2. Fell about 2 weeks ago, bruised and swollen. * HPI: G eneral: fell n leg two week ago - not [id number] - just a slip and fall has [...] Arthralgia, Esophageal stricture, Gastro-esophageal reflux disease, Graves' disease, Vitamin D deficiency.? * Surgical History: l ap gastric bypass [...] I nterpretation N egative * Medications: T aking BIPAP -- as directed , Taking chlordiazePOXIDE HCl 10 MG Capsule 1 capsule Orally tid PRN needs to last a week, Taking Doxepin HCl 50 MG Capsule 1 capsule at bedtime Orally Once a day , Taking Haloperidol 2 MG Tablet 1 tablet Orally three times daily , Taking Levothyroxine Sodium 100 MCG Capsule 1 [...] 0.25 mL Subcutaneous Once weekly , Taking valACYclovir HCl 500 MG Tablet 1 tablet Orally tid , Taking Ventolin HFA(Albuterol Sulfate HFA) 108 (90 Base) MCG/ACT Aerosol Solution 1 puff as needed Inhalation every 4 hrs , Notes to Pharmacist: PRN, Medication List reviewed and reconciled with the patient * Allergies: m etFORMIN HCl: stomach upset - Criticality High, Ibuprofen: stomach upset - Criticality High. Objective: * Vitals: W t:269lbs, Ht: 62.5 [...] aquatic therapy - eval an dtreat * Preventive Medicine: Screenings/Counseling: B [place] ACTION PLAN Above Normal BMI Follow-up D ietary management education, guidance, and counseling * * Electronic signature of Davey Pineda MD, [phone] on 08/21/2024 at 03:42 PM EDT Sign off status: Pending Visit Status: Destiny LONGORIA (Check Out) * Provider: Kari Pineda ([facility])MD Date: 08/21/2024 Generated for Printi ng/Faxing/eTransmitting on: 08/21/2024 03:42 PM EDT History and Physical Notes * HPI (History of Present Illness) Category Sub-Category Detail Notes Category Not es General fell n leg two week ago - not [id number] - just a slip and fall has [...] Anselmo PT and aquatic therapy - eval hood dtreat
--- OUTSIDE RECORDS SUMMARY | 2024-08-21 15:39 | XMS_ITS | Encounter Summary ---
Author Organization [facility] Address [address] [place] [address] Care Team Providers Care Mail Room Clerk Name Role Phone Farhat Cabezas MD Primary Care Provider [phone] Farhat Cabezas MD Unavailable [phone] Farhat Cabezas MD Unavailable [phone] Source Comments In the event this information is protected by the Federal Confidentiality of Alcohol and Drug AbusePatient Records regulations: The Federal rules restrict any use of the information to criminally investigate or prosecute any alcohol or drug abuse patient.[facility] Reason for Referral * MRI/CT (Routine) - Closed Specialty Diagnoses / Procedures Referred By Kalina burciaga Referred To Contact MR IMAGING Diagnoses Chronic right shoulder pain Procedures MRI SHOULDER WO IVCON RT MRI, JOINT UPPER EXTREM Lorenzo Perry DO Phone: tel: fax: [place] [phone] Referral ID Status Reason Start Date Expiration Date Visits Requested Visits Authorized [id number] Closed Auto-Generated Referral Patient Cleared Patient agrees to sign AFR (INN Commercial or OON MA) 01/07/2021 02/07/2021 1 1 Encounter Details Date Type Department Care Team (Late st Contact Info) Description 12/27/2020 Get Medical Advice Rheumatology [address] [place] [address] [id number] Lorenzo Perry DO [address] [place] [address] MRI Social History Tobacco Use [...] ot on file 01/16/2020 Data from: https://www.neighborhoodatlas.medicine.[facility]/. Last address used for calculation Not [...] Description 08/30/2024 9:30 AM EDT [facility] Endocrinology [address] [place] [address] Greg Nina APRN.TAX EXPERT [address] [place], [place] [phone] diabetes follow up with me in 3 months virtually 11/20/2024 1:00 PM EDT [facility] Endocrinology [address] [place] [address] Valdez Suarez MD [address] [place] [address] [address] [place], [place] [id number] follow up in 6 months documented as of this encounter Results * MRI SHOULDER WO IVCON RT (01/08/2021 1:30 PM EST) Anatomical Region Laterality Modality Shoulder Magnetic Resonan ce 01/08/2021 1:30 PM EST Impressions 01/08/2021 3:06 PM EST IMPRESSION: Very small near full-thickness tear of the supraspinatus tendon at the anterior leading edge. Background rotator cuff tendinosis. Legal Director: SLIVIA Transcribe Date/Time: Jan 08 2021 1:46P Dictated by : GERARDO VALLEJO MD This examination was interpreted and the report reviewed and electronically signed by: GERARDO VALLEJO MD on Jan 08 2021 3:04PM EST Narrative 01/08/2021 3:06 PM EST * * *Final Report* * * DATE OF EXAM: Jan 08 2021 1:30PM [facility] 0240 - MRI SHOULDER WO IVCON [...] findings. Localizer images: Unremarkable. Procedure Note Provider, [facility] - 01/08/2021 * * *Final Report* * * DATE OF EXAM: Jan 08 2021 1:30PM [facility] 0240 - MRI SHOULDER WO IVCON [...] anterior leading edge. Background rotator cuff tendinosis. Legal Director: [facility] Transcribe Date/Time: Jan 08 2021 1:46P [...] region documented in this encounter Care Teams Mail Room Clerk Relationship Specialty Start Date End Date Farhat Cabezas MD PCP - General Family Medicine 01/13/11 Farhat Cabezas MD Referring Family Medicine 01/08/22 Farhat Cabezas MD [address] [place] [address] Referring Family Medicine 07/26/24 documented as of this encounter
--- OUTSIDE RECORDS SUMMARY | 2024-08-21 15:39 | XMS_ITS | Encounter Summary ---
Demographics Address [address] [facility] [place] [address] Home Phone Mobile Phone Email Address Preferred Language ENG Marital Status Single Yazdanism Affiliation Unknown Race White Ethnic Group Not or Lati no Author Organization [facility] Address [address] [place] [address] Care Team Providers Care X Ray Electronics Wiring Technician Name Role Phone Farhat Cabezas MD Primary Care Provider [phone] Farhat Cabezas MD Unavailable [phone] Farhat Cabezas MD Unavailable [phone] Source Comments In the event this information is protected by the Federal Confidentiality of Alcohol and Drug AbusePatient Records regulations: The Federal rules restrict any use of the information to criminally investigate or prosecute any alcohol or drug abuse patient.[facility] Encounter Details Date Type Department Care Team (Late st Contact Info) Description 11/05/2020 Patient Msg Ctr for Integrative Med 1950 [facility] [place] [id number] Provider, Ccf Referral- CONSULT FOR ACUPUNCTURE Social [...] N ot on file 01/16/2020 Data from: https://www.neighborhoodatlas.[facility]/. Last address used [...] 08/30/2024 9:30 AM EDT [facility] Endocrinology [address] [place] [address] Greg Nina, INTERNATIONAL BANKER.COVERING MACHINE OPERATOR [address] [place], [place] [phone] diabetes follow up with me in 3 months virtually 11/20/2024 1:00 PM EDT [facility] Endocrinology [address] [place] [address] Valdez Suarez MD [address] [place] [address] [place] [address] follow up in 6 months documented as of this encounter Visit Diagnoses Not on filedocumented in this encounter Care Teams X Ray Electronics Wiring Technician Relationship Specialty Start Date End Date Farhat Cabezas MD PCP - General Family Medicine 01/13/11 Farhat Cabezas MD Referring Family Medicine 01/08/22 Farhat Cabezas MD [address] [place] [address] Referring Family Medicine 07/26/24 documented as of this encounter
--- OUTSIDE RECORDS SUMMARY | 2024-08-21 15:39 | XMS_ITS | Encounter Summary ---
Demographics Address [address] [place] [address] Home Phone Mobile Phone Email Address Preferred Language ENG Marital Status Single Mandaen Affiliation Unknown Race White Ethnic Group Not or Lati no Author Organization [facility] Address [address] [place] [address] Care Team Providers Care Morning Show Producer Name Role Phone Farhat Cabezas MD Primary Care Provider [phone] Farhat Cabezas MD Unavailable [phone] Farhat Cabezas MD Unavailable [phone] Source Comments In the event this information is protected by the Federal Confidentiality of Alcohol and Drug AbusePatient Records regulations: The Federal rules restrict any use of the information to criminally investigate or prosecute any alcohol or drug abuse patient.[facility] Reason for Visit * Reason Comments Radiology XR Encounter Details Date Type Department Care Team (Late st Contact Info) Description 12/27/2020 Radiology Radiology 5700 [place], [place] [phone] Altagracia Marinelli RT(R) Radiology XR Social History [...] N ot on file 01/16/2020 Data from: https://www.neighborhoodatlas.[facility]/. Last address used [...] Description 08/30/2024 9:30 AM EDT [facility] Endocrinology [address] [place] [phone] Greg Nina APRN.MD PSYCHIATRY [address] [place] [address] diabetes follow up with me in 3 months virtually 11/20/2024 1:00 PM EDT [facility] Endocrinology [address] [place] [address] Valdez Suarez MD [address] [place] [address] [address] [place], [place] [phone] follow up in 6 months documented as of this encounter Visit Diagnoses Not on filedocumented in this encounter Care Teams Morning Show Producer Relationship Specialty Start Date End Date Farhat Cabezas MD PCP - General Family Medicine 01/13/11 Farhat Cabezas MD Referring Family Medicine 01/08/22 Farhat Cabezas MD [address] [place] [address] Referring Family Medicine 07/26/24 documented as of this encounter
--- OUTSIDE RECORDS SUMMARY | 2024-08-21 15:39 | XMS_ITS | Encounter Summary ---
Demographics Address [address] [facility] [place] [address] Home Phone Mobile Phone Email Address Preferred Language ENG Marital Status Single Methodist Affiliation Unknown Race White Ethnic Group Not or Lati no Author Organization [facility] Address [address] [place] [address] Care Team Providers Care Manager Risk Name Role Phone Farhat Cabezas MD Primary Care Provider [phone] Farhat Cabezas MD Unavailable [phone] Farhat Cabezas MD Unavailable Source Comments [...] Description 02/05/2021 Get Medical Advice Rheumatology [address] [address] Lorenzo Perry DO 4302 [facility] [address] [place] [phone] Fever / aches Social History Tobacco Use [...] N ot on file 01/16/2020 Data from: https://www.neighborhoodatlas.medicine.[facility]/. Last address used for calculation Not on [...] 08/30/2024 9:30 AM EDT [facility] Endocrinology [address] [place] [address] Greg Nina APRN.DEVICE ENGINEER [address] [place] [address] diabetes follow up with me in 3 months virtually 11/20/2024 1:00 PM EDT [facility] Endocrinology [address] [place] [address] Valdez Suarez MD [address] [place] [address] [address] [place], [place] [phone] follow up in 6 months documented as of this encounter Visit Diagnoses Not on filedocumented in this encounter Care Teams Manager Risk Relationship Specialty Start Date End Date Farhat Cabezas MD PCP - General Family Medicine 01/13/11 Farhat Cabezas MD Referring Family Medicine 01/08/22 Farhat Cabezas MD [address] [place] [address] Referring Family Medicine 07/26/24 documented as of this encounter
--- OUTSIDE RECORDS SUMMARY | 2024-08-21 15:39 | XMS_ITS | Encounter Summary ---
Demographics Address [address] [place] [address] Home Phone Mobile Phone Email Address Preferred Language ENG Marital Status Single Catholic Affiliation Unknown Race White Ethnic Group Not or Lati no Author Organization [facility] Address [address] [place] [address] Care Team Providers Care Burial Vault Deliverer And Installer Name Role Phone Farhat Cabezas MD Primary Care Provider [phone] Farhat Cabezas MD Unavailable [phone] Farhat Cabezas MD Unavailable [phone] Source Comments In the event this information is protected by the Federal Confidentiality of Alcohol and Drug AbusePatient Records regulations: The Federal rules restrict any use of the information to criminally investigate or prosecute any alcohol or drug abuse patient.[facility] Encounter Details Date Type Department Care Team (Late st Contact Info) Description 11/14/2020 Get Medical Advice Neurology [address] [place], [place] [address] Jaelyn Rangel MD NO FORWARDING ADDRESS RE: [...] N ot on file 01/16/2020 Data from: https://www.neighborhoodatlas.[facility]/. Last address used for [...] EDT [facility] Endocrinology [address] [place] [address] Greg Nina MARITZA.CARPENTER/LABOR [address] [place] [address] diabetes follow up with me in 3 months virtually 11/20/2024 1:00 PM EDT [facility] Endocrinology [address] [place] [address] Valdez Suarez MD [address] [place] [address] [place] [address] follow up in 6 months documented as of this encounter Visit Diagnoses Not on filedocumented in this encounter Care Teams Burial Vault Deliverer And Installer Relationship Specialty Start Date End Date Farhat Cabezas MD PCP - General Family Medicine 01/13/11 Farhat Cabezas MD Referring Family Medicine 01/08/22 Farhat Cabezas MD [address] [place] [address] Referring Family Medicine 07/26/24 documented as of this encounter
--- OUTSIDE RECORDS SUMMARY | 2024-08-21 15:39 | XMS_ITS | Encounter Summary ---
Author Organization [facility] Address [address] [place] [address] Care Team Providers Care Radio Communication Coordinator Name Role Phone Farhat Cabezas MD Primary Care Provider [phone] Farhat Cabezas MD Unavailable [phone] Farhat Cabezas MD Unavailable [phone] Source Comments In the event this information is protected by the Federal Confidentiality of Alcohol and Drug AbusePatient Records regulations: The Federal rules restrict any use of the information to criminally investigate or prosecute any alcohol or drug abuse patient.[facility] Encounter Details Date Type Department Care Team (Late st Contact Info) Description 10/25/2016 Patient Msg Medical Records [address] [place] [address] Provider, [facility] [...] Contact Info) Description 08/30/2024 9:30 AM EDT [facility] Endocrinology [address] [place] [address] Greg Nina APRN.SAILOR [address] [place] [address] diabetes follow up with me in 3 months virtually 11/20/2024 1:00 PM EDT [facility] Endocrinology [address] [place] [address] Valdez Suarez MD [address] [place] [address] [address] [place], [place] [phone] follow up in 6 months documented as of this encounter Visit Diagnoses Not on filedocumented in this encounter Care Teams Radio Communication Coordinator Relationship Specialty Start Date End Date Farhat Cabezas MD PCP - General Family Medicine 01/13/11 Farhat Cabezas MD Referring Family Medicine 01/08/22 Farhat Cabezas MD [address] [place] [address] Referring Family Medicine 07/26/24 documented as of this encounter
--- OUTSIDE RECORDS SUMMARY | 2024-08-21 15:39 | XMS_ITS | Encounter Summary ---
Demographics Address [address] [facility] [place] [address] Home Phone Mobile Phone Email Address Preferred Language ENG Marital Status Single Samaritan Affiliation Unknown Race White Ethnic Group Not or Lati no Author Organization [facility] Address [address] [place] [address] Care Team Providers Care Kindergarten Teacher Assistant Name Role Phone Farhat Cabezas MD Primary Care Provider [phone] Farhat Cabezas MD Unavailable [phone] Farhat Cabezas MD Unavailable Source Comments In the event this information is protected by the Federal Confidentiality of Alcohol and Drug AbusePatient Records regulations: The Federal rules restrict any use of the information to criminally investigate or prosecute any alcohol or drug abuse patient.[facility] Encounter Details Date Type Department Care Team (Late st Contact Info) Description 02/04/2021 Get Medical Advice Rheumatology [address] [address] Lorenzo Perry DO 4302 [facility] [address] [place] [phone] Medication / Pain issues Social History Tobacco [...] on file 01/16/2020 Data from: https://www.neighborhoodatlas.medicine.[facility]/. Last address used for calculation Not on [...] 9:30 AM EDT [facility] Endocrinology [address] [place] [address] Greg Nina APRN.CLINICAL DATA ABSTRACTOR [address] [place] [address] diabetes follow up with me in 3 months virtually 11/20/2024 1:00 PM EDT [facility] Endocrinology [address] [place] [address] Valdez Suarez MD [address] [place] [address] [address] [place], [place] 7974535 follow up in 6 months documented as of this encounter Visit Diagnoses Not on filedocumented in this encounter Care Teams Kindergarten Teacher Assistant Relationship Specialty Start Date End Date Farhat Cabezas MD PCP - General Family Medicine 01/13/11 Farhta Cabezas MD Referring Family Medicine 01/08/22 Farhat Cabezas MD [address] [place] [address] Referring Family Medicine 07/26/24 documented as of this encounter
--- OUTSIDE RECORDS SUMMARY | 2024-08-21 15:39 | XMS_ITS | Encounter Summary ---
Author Organization [facility] Address [address] [place] [address] Care Team Providers Care Public Health Clinical Nurse Specialist Name Role Phone Farhat Cabezas MD Primary Care Provider [phone] Farhat Cabezas MD Unavailable [phone] Farhat Cabezas MD Unavailable [phone] Source Comments In the event this information is protected by the Federal Confidentiality of Alcohol and Drug AbusePatient Records regulations: The Federal rules restrict any use of the information to criminally investigate or prosecute any alcohol or drug abuse patient.[facility] Encounter Details Date Type Department Care Team (Late st Contact Info) Description 08/31/2016 Patient Msg Medical Records [address] [place] [address] Provider, [facility] Medical Education Program [...] Info) Description 08/30/2024 9:30 AM EDT [facility] Endocrinology [address] [place] [address] Greg Nina APRN.DEAN OF ADMISSIONS [address] [place] [address] diabetes follow up with me in 3 months virtually 11/20/2024 1:00 PM EDT [facility] Endocrinology [address] [place] [address] Valdez Suarez MD [address] [place] [address] [address] [place], [place] 4708035 follow up in 6 months documented as of this encounter Visit Diagnoses Not on filedocumented in this encounter Care Teams Public Health Clinical Nurse Specialist Relationship Specialty Start Date End Date Farhat Cabezas MD PCP - General Family Medicine 01/13/11 Farhat Cabezas MD Referring Family Medicine 01/08/22 Farhat Cabezas MD [address] [place] [address] Referring Family Medicine 07/26/24 documented as of this encounter
--- OUTSIDE RECORDS SUMMARY | 2024-08-21 15:39 | XMS_ITS | Encounter Summary ---
Demographics Address [address] [place] [address] Home Phone Mobile Phone Email Address Preferred Language ENG Marital Status Single Cheondoism Affiliation Unknown Race White Ethnic Group Not or Lati no Author Organization [facility] Address [address] [place] [address] Care Team Providers Care Manager Art Name Role Phone Farhat Cabezas MD Primary Care Provider [phone] Farhat Cabezas MD Unavailable [phone] Farhat Cabezas MD Unavailable [phone] Source Comments In the event this information is protected by the Federal Confidentiality of Alcohol and Drug AbusePatient Records regulations: The Federal rules restrict any use of the information to criminally investigate or prosecute any alcohol or drug abuse patient.[facility] Encounter Details Date Type Department Care Team (Late st Contact Info) Description 08/20/2016 Get Medical Advice Rheumatology 5700 [place] [address] Zabrina Culver MD [address] [place], [place] [phone] RE: Non-Urgent Medical Question Social History Tobacco [...] 9:30 AM EDT [facility] Endocrinology [address] [place] [address] Greg Nina APRN.HOSPITAL RECEPTIONIST [address] [place] [address] diabetes follow up with md in 3 months virtually 11/20/2024 1:00 PM EDT [facility] Endocrinology [address] [place] [address] Valdez Suarez MD [address] [place] [address] [place] [address] follow up in 6 months documented as of this encounter Visit Diagnoses Diagnosis Nausea and vomiting in adult- Primary Nausea with vomiting documented in this encounter Care Teams Manager Art Relationship Specialty Start Date End Date Farhat Cabezas MD PCP - General Family Medicine 01/13/11 Farhat Cabezas MD Referring Family Medicine 01/08/22 Farhat Cabezas MD [address] [place] [address] Referring Family Medicine 07/26/24 documented as of this encounter
--- OUTSIDE RECORDS SUMMARY | 2024-08-21 15:39 | XMS_ITS | Encounter Summary ---
Author Organization [facility] Address [address] [place] [address] Care Team Providers Care Talent Acquisition Operations Manager Name Role Phone Farhat Cabezas MD Primary Care Provider [phone] Farhat Cabezas MD Unavailable [phone] Farhat Cabezas MD Unavailable [phone] Source Comments In the event this information is protected by the Federal Confidentiality of Alcohol and Drug AbusePatient Records regulations: The Federal rules restrict any use of the information to criminally investigate or prosecute any alcohol or drug abuse patient.[facility] Encounter Details Date Type Department Care Team (Late st Contact Info) Description 02/24/2017 Patient Msg Medical Records [address] [place] [address] Provider, Ccf Follow Up from [facility] [...] Assessment Author No 12/14/2016 12:43 PM Mona uDbose (Rn) (Hist), RN * Because of a [...] Description 08/30/2024 9:30 AM EDT [facility] Endocrinology [address] [place] [address] Greg Nina APRN.RETAIL GENERAL MANAGER [address] [place] [address] diabetes follow up with me in 3 months virtually 11/20/2024 1:00 PM EDT [facility] Endocrinology [address] [place] [address] Valdez Suarez MD [address] [place] [address] [address] [place], [place] [phone] follow up in 6 months documented as of this encounter Visit Diagnoses Not on filedocumented in this encounter Care Teams Talent Acquisition Operations Manager Relationship Specialty Start Date End Date Farhat Cabezas MD PCP - General Family Medicine 01/13/11 Farhat Cabezas MD Referring Family Medicine 01/08/22 Farhat Cabezas MD [address] [place] [address] Referring Family Medicine 07/26/24 documented as of this encounter
--- OUTSIDE RECORDS SUMMARY | 2024-08-21 15:39 | XMS_ITS | Encounter Summary ---
Demographics Address [address] [facility] [place] [address] Home Phone Mobile Phone Email Address Preferred Language ENG Marital Status Single Voodoo Affiliation Unknown Race White Ethnic Group Not or Lati no Author Organization [facility] Address [address] [place] [address] Care Team Providers Care Screwmaker Automatic Name Role Phone Farhat Cabezas MD Primary Care Provider [phone] Farhat Cabezas MD Unavailable [phone] Farhat Cabezas MD Unavailable [phone] Source Comments In the event this information is protected by the Federal Confidentiality of Alcohol and Drug AbusePatient Records regulations: The Federal rules restrict any use of the information to criminally investigate or prosecute any alcohol or drug abuse patient.[facility] Encounter Details Date Type Department Care Team (Late st Contact Info) Description 12/22/2020 Patient Msg [facility]tr for [facility]ative Med [address] [facility] [place] [id number] Provider, Ccf Request an Appointment Social History [...] on file 01/16/2020 Data from: https://www.neighborhoodatlas.[facility]/. Last address used for calculation Not on [...] AM EDT [facility] Endocrinology [address] [place] [address] Greg Nina APRN.STRIKER OFF [address] [place] [address] diabetes follow up with me in 3 months virtually 11/20/2024 1:00 PM EDT [facility] Endocrinology [address] [place] [phone] Valdez Suarez MD [address] [place] [address] [address] [place], [place] [phone] follow up in 6 months documented as of this encounter Visit Diagnoses Not on filedocumented in this encounter Care Teams Screwmaker Automatic Relationship Specialty Start Date End Date Farhat Cabezas MD PCP - General Family Medicine 01/13/11 Farhat Cabezas MD Referring Family Medicine 01/08/22 Farhat Cabezas MD [address] [place] [address] Referring Family Medicine 07/26/24 documented as of this encounter
--- OUTSIDE RECORDS SUMMARY | 2024-08-21 15:39 | XMS_ITS | Encounter Summary ---
Demographics Address [address] [address] Home Phone Mobile Phone Email Address Preferred Language ENG Marital Status Single Zoroastrian Affiliation Unknown Race White Ethnic Group Not or Lati no Author Organization [facility] Address [facility] [place] [address] Care Team Providers Care Ballast Cleaning Machine Operator Name Role Phone Farhat Cabezas MD Primary Care Provider [phone] Farhat Cabezas MD Unavailable [phone] Farhat Cabezas MD Unavailable [phone] Source Comments In the event this information is protected by the Federal Confidentiality of Alcohol and Drug AbusePatient Records regulations: The Federal rules restrict any use of the information to criminally investigate or prosecute any alcohol or drug abuse patient.[facility] Encounter Details Date Type Department Care Team (Late st Contact Info) Description 11/22/2020 Get Medical Advice [facility] Physical Therapy [address] [place] [address] Tammy Rodriges, CARY [address] [place] [address] Upcoming Appointment Question Social History [...] N ot on file 01/16/2020 Data from: https://www.neighborhoodatlas.medicine.[facility]/. Last address used for calculation [...] AM EDT [facility] Endocrinology [address] [place] [address] Greg Nina APRN.HEAD STILL OPERATOR [address] [place], [place] [id number] diabetes follow up with me in 3 months virtually 11/20/2024 1:00 PM EDT [facility] Endocrinology [address] [place] [address] Valdez Suarez MD [address] [place] [address] [address] [place], [place] [id number] follow up in 6 months documented as of this encounter Visit Diagnoses Not on filedocumented in this encounter Care Teams Ballast Cleaning Machine Operator Relationship Specialty Start Date End Date Farhat Cabezas MD PCP - General Family Medicine 01/13/11 Farhat Cabezas MD Referring Family Medicine 01/08/22 Farhat Cabezas MD [address] [place] [address] Referring Family Medicine 07/26/24 documented as of this encounter
--- OUTSIDE RECORDS SUMMARY | 2024-08-21 15:39 | XMS_ITS | Encounter Summary ---
Demographics Address [address] [place] [address] Home Phone Mobile Phone Email Address Preferred Language ENG Marital Status Single Mormon Affiliation Unknown Race White Ethnic Group Not or Lati no Author Organization [facility] Address [address] [place] [address] Care Team Providers Care Educational Adviser Name Role Phone Farhat Cabezas MD Primary Care Provider [phone] Farhat Cabezas MD Unavailable [phone] Farhat Cabezas MD Unavailable [phone] Source Comments In the event this information is protected by the Federal Confidentiality of Alcohol and Drug AbusePatient Records regulations: The Federal rules restrict any use of the information to criminally investigate or prosecute any alcohol or drug abuse patient.[facility] Reason for Visit * Reason Comments Radiology XR Encounter Details Date Type Department Care Team (Late st Contact Info) Description 11/21/2020 Radiology General Radiology [address] [place] [address] Jonah Pavon, RT(R) Radiology XR Social History [...] N ot on file 01/16/2020 Data from: https://www.neighborhoodatlas.[facility]/. Last address [...] Info) Description 08/30/2024 9:30 AM EDT [facility] Endocrinology [address] [place] [address] Greg Nina APRN.DRAG OUT WORKER [address] [place], [place] [phone] diabetes follow up with me in 3 months virtually 11/20/2024 1:00 PM EDT [facility] Endocrinology [address] [place] [phone] Valdez Suarez MD [address] [place] [address] [address] [place], [place] [phone] follow up in 6 months documented as of this encounter Visit Diagnoses Not on filedocumented in this encounter Care Teams Educational Adviser Relationship Specialty Start Date End Date Farhat Cabezas MD PCP - General Family Medicine 01/13/11 Farhat Cabezas MD Referring Family Medicine 01/08/22 Farhat Cabezas MD [address] [place] [id number] Referring Family Medicine 07/26/24 documented as of this encounter
--- OUTSIDE RECORDS SUMMARY | 2024-08-21 15:39 | XMS_ITS | Encounter Summary ---
Author Organization [facility] Address [address] [place] [address] Care Team Providers Care Rabbler Name Role Phone Farhat Cabezas MD Primary Care Provider [phone] Farhat Cabezas MD Unavailable [phone] Farhat Cabezas MD Unavailable [phone] Source Comments In the event this information is protected by the Federal Confidentiality of Alcohol and Drug AbusePatient Records regulations: The Federal rules restrict any use of the information to criminally investigate or prosecute any alcohol or drug abuse patient.[facility] Encounter Details Date Type Department Care Team (Late st Contact Info) Description 10/27/2016 Patient Msg General Surgery [address] [place] [address] Monica Adam RN Survey Social [...] 08/30/2024 9:30 AM EDT [facility] Endocrinology [address] [place] [address] Greg Nina APRN.GROOMING ASSISTANT [address] [place] [address] diabetes follow up with me in 3 months virtually 11/20/2024 1:00 PM EDT [facility] Endocrinology [address] [place] [address] Valdez Suarez MD [address] [place] [address] [address] [place], [place] [phone] follow up in 6 months documented as of this encounter Visit Diagnoses Not on filedocumented in this encounter Care Teams Rabbler Relationship Specialty Start Date End Date Farhat Cabezas MD PCP - General Family Medicine 01/13/11 Farhat Cabezas MD Referring Family Medicine 01/08/22 Farhat Cabezas MD [address] [place] [address] Referring Family Medicine 07/26/24 documented as of this encounter
--- OUTSIDE RECORDS SUMMARY | 2024-08-21 15:39 | XMS_ITS | Encounter Summary ---
Demographics Address [address] [facility] [place] [address] Home Phone Mobile Phone Email Address Preferred Language ENG Marital Status Single Zoroastrian Affiliation Unknown Race White Ethnic Group Not or Lati no Author Organization [facility] Address [address] [place] [address] Care Team Providers Care Roll Tension Tester Name Role Phone Farhat Cabezas MD Primary Care Provider [phone] Farhat Cabezas MD Unavailable [phone] Farhat Cabezas MD Unavailable [phone] Source Comments In the event this information is protected by the Federal Confidentiality of Alcohol and Drug AbusePatient Records regulations: The Federal rules restrict any use of the information to criminally investigate or prosecute any alcohol or drug abuse patient.[facility] Encounter Details Date Type Department Care Team (Late st Contact Info) Description 12/22/2020 Patient Msg Rheumatology [address] [address] Lorenzo Perry DO [address] [facility] [address] [place] [address] Request an Appointment Social History Tobacco Use [...] ot on file 01/16/2020 Data from: https://www.neighborhoodatlas.medicine.[facility]/. Last address used for calculation [...] Info) Description 08/30/2024 9:30 AM EDT [facility] Endocrinology [address] [place] [address] Greg Nina APRN.BIOPHYSICS PROFESSOR [address] [place] [address] diabetes follow up with me in 3 months virtually 11/20/2024 1:00 PM EDT [facility] Endocrinology [address] [place] [address] Valdez Suarez MD [address] [place] [address] [address] [place], [place] [phone] follow up in 6 months documented as of this encounter Visit Diagnoses Not on filedocumented in this encounter Care Teams Roll Tension Tester Relationship Specialty Start Date End Date Farhat Cabezas MD PCP - General Family Medicine 01/13/11 Farhat Cabezas MD Referring Family Medicine 01/08/22 Farhat Cabezas MD [address] [place] [address] Referring Family Medicine 07/26/24 documented as of this encounter
--- OUTSIDE RECORDS SUMMARY | 2024-08-21 15:39 | XMS_ITS | Encounter Summary ---
Author Organization [facility] Address [address] [place] [address] Care Team Providers Care Elevator Repairer Helper Name Role Phone Farhat Cabezas MD Primary Care Provider [phone] Farhat Cabezas MD Unavailable [phone] Farhat Cabezas MD Unavailable [phone] Source Comments In the event this information is protected by the Federal Confidentiality of Alcohol and Drug AbusePatient Records regulations: The Federal rules restrict any use of the information to criminally investigate or prosecute any alcohol or drug abuse patient.[facility] Encounter Details Date Type Department Care Team (Late st Contact Info) Description 08/26/2017 Patient Msg General Surgery [address] [place] [address] Monica Adam RN diarrhea Social [...] 9:30 AM EDT [facility] Endocrinology [address] [place] [address] Greg Nina APRN.GRAINER MACHINE [address] [place] [address] diabetes follow up with me in 3 months virtually 11/20/2024 1:00 PM EDT [facility] Endocrinology [address] [place] [address] Valdez Suarez MD [address] [place] [address] [address] [place], [place] [phone] follow up in 6 months documented as of this encounter Visit Diagnoses Not on filedocumented in this encounter Care Teams Elevator Repairer Helper Relationship Specialty Start Date End Date Farhat Cabezas MD PCP - General Family Medicine 01/13/11 Farhat Cabezas MD Referring Family Medicine 01/08/22 Farhat Cabezas MD [address] [place] [address] Referring Family Medicine 07/26/24 documented as of this encounter
--- OUTSIDE RECORDS SUMMARY | 2024-08-21 15:39 | XMS_ITS | Encounter Summary ---
Demographics Address [address] [facility] [place] [address] Home Phone Mobile Phone Email Address Preferred Language ENG Marital Status Single Yazidi Affiliation Unknown Race White Ethnic Group Not or Lati no Author Organization [facility] Address [address] [place] [address] Care Team Providers Care Board Certified Family Physician Name Role Phone Farhat Cabezas MD Primary Care Provider [phone] Farhat Cabezas MD Unavailable [phone] Farhat Cabezas MD Unavailable [phone] Source Comments In the event this information is protected by the Federal Confidentiality of Alcohol and Drug AbusePatient Records regulations: The Federal rules restrict any use of the information to criminally investigate or prosecute any alcohol or drug abuse patient.[facility] Encounter Details Date Type Department Care Team (Late st Contact Info) Description 12/11/2020 Patient Msg Pain Management [address] [place], [place] [phone] Provider, Ccf 3 month virtual appointment with [...] N ot on file 01/16/2020 Data from: https://www.neighborhoodatlas.medicine.[facility]/. Last address used for [...] EDT [facility] Endocrinology [address] [place] [address] Greg Nina APRN.SALES REPRESENTATIVE SUPERVISOR [address] [place] [address] diabetes follow up with me in 3 months virtually 11/20/2024 1:00 PM EDT [facility] Endocrinology [address] [place] [address] Valdez Suarez MD [address] [place] [address] [place], [place] [phone] follow up in 6 months documented as of this encounter Visit Diagnoses Not on filedocumented in this encounter Care Teams Board Certified Family Physician Relationship Specialty Start Date End Date Farhat Cabezas MD PCP - General Family Medicine 01/13/11 Farhat Cabezas MD Referring Family Medicine 01/08/22 Farhat Cabezas MD [address] [place] [address] Referring Family Medicine 07/26/24 documented as of this encounter
--- OUTSIDE RECORDS SUMMARY | 2024-08-21 15:40 | XMS_ITS | Encounter Summary ---
Author Organization [facility] Address [address] [place] [address] Care Team Providers Care Well Treatment Offsider Name Role Phone Farhat Cabezas MD Primary Care Provider [phone] Farhat Cabezas MD Unavailable [phone] Farhat Cabezas MD Unavailable [phone] Source Comments In the event this information is protected by the Federal Confidentiality of Alcohol and Drug AbusePatient Records regulations: The Federal rules restrict any use of the information to criminally investigate or prosecute any alcohol or drug abuse patient.[facility] Encounter Details Date Type Department Care Team (Late st Contact Info) Description 12/24/2016 Patient Msg Medical Records [address] [place] [address] Provider, Ccf RE:Folllow up from psychology group [...] Description 08/30/2024 9:30 AM EDT [facility] Endocrinology [address] [place] [address] Greg Nina APRN.MANAGER CAREER [address] [place] [address] diabetes follow up with me in 3 months virtually 11/20/2024 1:00 PM EDT [facility] Endocrinology [address] [place] [address] Valdez Suarez MD [address] [place] [address] [address] [place], [place] [phone] follow up in 6 months documented as of this encounter Visit Diagnoses Not on filedocumented in this encounter Care Teams Well Treatment Offsider Relationship Specialty Start Date End Date Farhat Cabezas MD PCP - General Family Medicine 01/13/11 Farhat Cabezas MD Referring Family Medicine 01/08/22 Farhat Cabezas MD [address] [place] [address] Referring Family Medicine 07/26/24 documented as of this encounter
--- OUTSIDE RECORDS SUMMARY | 2024-08-21 15:40 | XMS_ITS | Encounter Summary ---
Demographics Address [address] [facility] [place] [place] [address] Home Phone Mobile Phone Email Address Preferred Language ENG Marital Status Single Zoroastrian Affiliation Unknown Race White Ethnic Group Not or Lati no Author Organization [facility] Address [address] [place] [address] Care Team Providers Care Emergency Department Manager Name Role Phone Farhat Cabezas MD Primary Care Provider [phone] Farhat Cabezas MD Unavailable [phone] Farhat Cabezas MD Unavailable [phone] Source Comments In the event this [...] Description 01/05/2021 Get Medical Advice Rheumatology [address] [address] [place] Perry DO [address] [facility] [address] [place] [phone] Mri/pain shoulder Social History Tobacco Use Types [...] file 01/16/2020 Data from: https://www.neighborhoodatlas.medicine.[facility]/. Last address used for calculation Not [...] Info) Description 08/30/2024 9:[address] [facility] Endocrinology [address] [place] [address] Greg Nina APRN.NUMERICAL CONTROL OPERATOR [address] [place] [address] diabetes follow up with me in 3 months virtually 11/20/2024 1:[address] [facility] Endocrinology [address] [place] [address] Valdez Suarez MD [address] [place] [address] [address] [place], [place] [phone] follow up in 6 months documented as of this encounter Visit Diagnoses Not on filedocumented in this encounter Care Teams Emergency Department Manager Relationship Specialty Start Date End Date Farhat Cabezas MD PCP - General Family Medicine 01/13/11 Farhat Cabezas MD Referring Family Medicine 01/08/22 Farhat Cabezas MD [address] [place] [address] Referring Family Medicine 07/26/24 documented as of this encounter
--- OUTSIDE RECORDS SUMMARY | 2024-08-21 15:40 | XMS_ITS ---
Author Organization [facility] Address [address] [place] [address] Care Team Providers Care Attendant Arcade Name Role Phone Farhat Cabezas MD Primary Care Provider [phone] Farhat Cabezas MD Unavailable [phone] Farhat Cabezas MD Unavailable [phone] Active Problems * This document contains [...] (09/24/2017): Added automatically from request for surgery [id number] Vomiting of fecal matter with nausea 09/24/2017 Overview (09/24/2017): Added automatically from request for surgery [id number] Postoperative malabsorption 03/04/2017 Pneumonia 12/06/2016 Nausea and [...] (08/31/2016): Added automatically from request for surgery [id number] Hernia, paraesophageal 08/31/201612/01 Overview (08/31/2016): Added automatically from request for surgery [id number] Mitral and aortic valve regurgitation 09/08/2009 10/23/2022 Overview (10/08/2017): Aortic insufficiency EF 60% DR Zuniga -- judged to be non-surgical and mild
--- OUTSIDE RECORDS SUMMARY | 2024-08-21 15:40 | XMS_ITS | Clinical Summary ---
Author Organization [facility] Address [address] [place] [address] Care Team Providers Care Marketing Programs Manager Name Role Phone Farhat Cabezas MD Primary Care Provider [phone] Farhat Cabezas MD Unavailable [phone] Farhat Cabezas MD Unavailable [phone] Allergies Active Allergy Reactions Criticality Noted [...] current use of insulin (HCC) Use 1 Winner in the nose as needed for low [...] complication, without long-term current use of insulin ([facility]) Inject 4.5 mg subcutaneously one time a week. 6 mL 3 Active magnesium glycinate 100 mg magnesium capsuleIndications: Disturbance in sleep behavior Take 2 capsules by mouth daily at bedtime. 60 capsule 11 2025 Active semaglutide (OZEMPIC) 0.25 mg or 0.5 mg (2 mg/3 mL) penIndications:Type 2 diabetes mellitus with hypoglycemia without coma, without long-term current use of insulin ([facility]) For the first 4 weeks, inject 0.25 mg once weekly. After 4 weeks, increase to 0.5 mg weekly and stay at that dose. 1 each Active Blood-Glucose Sensor (DEXCOM G7 SENSOR) deviIndications:Typ e 2 diabetes mellitus with hypoglycemia without coma, without long-term current use of insulin ([facility]) Use to check glucose 4 times [...] (09/24/2017): Added automatically from request for surgery [id number] Vomiting of fecal matter with nausea 09/24/2017 Overview (09/24/2017): Added automatically from request for surgery [id number] Postoperative malabsorption 03/04/2017 Pneumonia 12/06/2016 Nausea and [...] (08/31/2016): Added automatically from request for surgery [id number] Hernia, paraesophageal 08/31/201612/01 Overview (08/31/2016): Added automatically from request for surgery [id number] Mitral and aortic valve regurgitation 09/08/2009 10/23/2022 Overview (10/08/2017): Aortic insufficiency EF 60% DR Zuniga -- judged to be non-surgical and mild Encounters Date Type Department Care Team Description 07/26/2024 Transcribe Orders Referring Physician [address] [place] [address] Farhat Cabzeas MD Esophageal stricture (Primary Dx); Diverticulitis of colon 07/07/2024 Patient Msg Neurology [address] [place] [phone] Thaddeus Diggs MD MRI denial 07/04/2024 Patient Msg Neurology [address] [place] [address] Provider, Ccf from Dr Duenas office 07/04/2024 Telephone Neurology [address] [place] [address] Thaddeus Diggs MD Insurance Sales Executive - Other 07/04/2024 [place] [address] Provider, Ccf Phone call fllow up 07/03/2024 [place] [address] Provider, Ccf MRI Screening Questionnaire Completion Required 06/06/2024 Orders Only Neurology [address] [place] [phone] Thaddeus Diggs MD Paresthesia (Primary Dx); Subjective weakness 05/30/2024 Results Follow-Up Endocrinology [address] [place] [address] Greg Nina, PLANT OPERATIONS WORKER.NETWORK DEVELOPMENT COORDINATOR 05/30/2024 Patient Msg [facility]ocrinology [address] [facility] [place] [address] Valdez Suarez MD Endocrinology Scheduling 05/29/2024 3:03 PM EDT - 05/29/2024 11:59 PM EDT Hospital Encounter Radiology [address] [place] [address] Discharge Disposition: Home 05/29/2024 Radiology Radiology [address] [facility] [place] [address] Bharti Torres RT(R) Radiology XR 05/29/2024 Get Medical Advice Endocrinology [address] [place] [address] Vinicius Márquez, PLANT OPERATIONS WORKER.NETWORK DEVELOPMENT COORDINATOR Sugars 05/24/2024 Get Medical Advice Neurology [address] [place] [phone] Thaddeus Diggs MD MRI cervical slime 05/22/2024 Telephone Endocrinology [address] [place] [address] Greg Nina, PLANT OPERATIONS WORKER.NETWORK DEVELOPMENT COORDINATOR Insurance Authorization (semaglutide (OZEMPIC) 0.25 mg or 0.5 mg (2 mg/3 mL) pen [[facility]]) from Last 3 Months Immunizations Immunization Administration [...] is lower risk 7 03/07/2024 Data from: https://www.neighborhoodatlas.medicine.[facility] [place].edu/ . Last address used for calculation [address] [...] AM EDT [facility] Endocrinology [address] [place] [phone] Greg Nina APRN.NETWORK DEVELOPMENT COORDINATOR [address] [place], [place] [phone] diabetes follow up with me in 3 months virtually 11/20/2024 1:00 PM EDT [facility] Endocrinology [address] [place] [phone] Valdez Suarez MD [address] [place] [address] [address] [place], [place] [phone] follow up in 6 months Health Maintenance [...] 09/17/2022 09/17/2021 Dilated Retinal Exam 06/12/2023 06/11/2022, 10/04/20 21 Diabetic Foot Exam 06/24/2023 06/23/2022 Shingrix Vaccine (1 of 2) 07/13/2023 Covid-19 Vaccine (1 - 2023-2 5 season) 2023 Mammogram Screening 10/28/2023 10/27/2022 Medicare Annual Wellness Visit 08/08/2024 Influenza Vaccine (#1) 2024 HbA1C 11/28/2024 05/29/2024, 03/11, 11/30/2022, Additional history exists LDL Cholesterol 05/29/2025 05/29/2024, 12/09, 02/11/2018 Urine Albumin:Creatinine Ratio 05/29/2025 05/29/2024 , 12/22/2022 Cervical Cancer Screening 06/12/20272022, 06/11/2022, 01/10/2018, Additional history exists DTaP,Tdap,Td Vaccine (2 - Td or Tdap) 08/27/2030 08/27/2020 Hepatitis C Screening Completed 12/27/2020 , 12/27/2020, 08/05/2016, Additional history exists Medical Devices Implanted Type Area Dynamometer Tester Device Identifier Shelf Expiration Date Model / Serial / Lot Tube Diane 14fr Silicone Gastrostomy Balloon Bolus Feeding 3-5ml Sterile - [id number] Implanted:Qty: 1 on 11/24/2016 at [facility] Tube N/A: Abdomen [email or web address] 09/09/2019 [id number] / / [id number] Description:18 montenegrin DIANE ga strostomy feeding tube - [facility] Procedures Procedure Name Priority Date/Time Associated Diagnosis [...] AM EDT IMPRESSION: 1. Fifth metatarsal fracture Olive Grader: SILVIA Transcribe Date/Time: May 30 2024 10:01A Dictated by : JONATHAN WADSWORTH MD This examination was interpreted and the report reviewed and electronically signed by: JONATAHN WADSWORTH MD on May 30 2024 10:04AM [...] swelling at the forefoot Procedure Note Provider, [facility] [place] - 05/30/2024 * * *Final Report* * [...] forefoot IMPRESSION IMPRESSION: 1. Fifth metatarsal fracture Olive Grader: PSCB Transcribe Date/Time: May 30 2024 10:01A Dictated by : JONATHAN WADSWORTH MD This examination was interpreted and the report reviewed and electronically signed by: JONATHAN WADSWORTH MD on May 30 2024 10:04AM EST Ccf Provider RAD-PAMA Final Result * ALBUMIN/CREATININE RATIO, URINE (05/29/2024 3:00 PM EDT) Creatinine, Ur Random (UCRR) 208.7 20.0 - 300.0 mg/dL 05/30/2024 1:19 PM EDT [facility] Albumin, Urine Random 21.1 mg/L 05/30/2024 1:19 PM EDT [facility] Albumin/Creat Ratio 10 <30 mg/g 05/30/2024 1:19 PM EDT [facility] Comment: Adult Male and Female [...] EDT 05/29/2024 3:00 PM EDT Greg Nina APRN.[facility] Final R esult [facility] [address] [place] [address], * (ABNORMAL) VITAMIN D 25 HYDROXY (05/29/2024 2:55 PM EDT) Vitamin D 25 Hydroxy 25.8(L) 31.0 - 80.0 ng/mL 05/30/2024 12:38 PM EDT [facility] Comment: Classification of 25 [place] Vitamin D status: Deficiency/Insufficiency: < or = 30 ng/ml. Sufficiency/Optimal Levels: 31-80 ng/mL Toxicity: > 100 ng/mL. Test performed by chemiluminescent immunoassay. Blood BLOOD SPECIMEN / Unknown Venipuncture / Unknown 05/29/2024 2:55 PM EDT 05/29/2024 2:55 PM EDT Narrative [facility] - 05/30/2024 12:38 PM EDT The reference range interval was based on an analysis of samples from healthy adults and may not pertain to children from 0-18 years old. Valdez Suarez MD LABORATORY Final Resu lt Performing Organization Address [facility]/ZIP Co de Phone Number [facility] [address] [place] [id number], [place] * THYROID STIMULATING HORMONE (05/29/2024 2:55 PM EDT) TSH 1.070 0.270 - 4.200 mIU/L 05/30/2024 4:48 AM EDT [facility] Comment: If the patient is , TSH reference range varies by gestational period: First Trimester (weeks 9-12): 0.180-2.990 mIU/L Second Trimester: 0.110-3.980 mIU/L Third Trimester: 0.480-4.710 mIU/L Rohit Mares et al. A Practical Approach for the Verifications and Determination of Site- and Trimester-Specific Reference Intervals for Thyroid Function tests in . Thyroid, 2019:29:3:412-420. Hany Torre, et al. 2017 Guidelines of the [place] Thyroid Association for the Diagnosis and Management of Thyroid Disease during and the . Thyroid, 2017:27:3:315-389. Blood BLOOD SPECIMEN / Unknown Venipuncture / Unknown 05/29/2024 2:55 PM EDT 05/29/2024 2:55 PM EDT Valdez Suarez MD LABORATORY Final Resu lt Performing Organization Address [facility] Co de Phone Number [facility] [address] [place] [phone], [place] * LIPID PANEL, FASTING (05/29/2024 2:55 PM EDT) Cholesterol, Total 132 <200 mg/dL 05/30/2024 4:41 AM EDT [facility] Comment: <200 mg/dL, Desirable 200-239 mg/dL, Borderline high >239 mg/dL, High Triglyceride 139 <150 mg/dL 05/30/2024 4:41 AM EDT [facility] Comment: <150 mg/dL, Normal 150-199 mg/dL, Borderline high 200-499 mg/dL, High >499 mg/dL, Very high HDL Cholesterol 41 >39 mg/dL 4:41 AM [facility] Comment: 40-59 mg/dL, Acceptable >59 mg/dL, High: Negative risk factor for coronary heart disease <40 mg/dL, Low: Positive risk factor for coronary heart disease Non HDL Cholesterol 91 <130 mg/dL 05/30/2024 4:41 AM [facility] Comment: <130 mg/dL, Optimal 130-159 mg/dL, Near optimal/above optimal 160-189 mg/dL, Borderline high 190-219 mg/dL, High >219 mg/dL, Very high Secondary prevention optimal non HDL Cholesterol levels are recommended to be <100 mg/dL Fasting Time 12 hrs 05/30/2024 4:41 AM [facility] VLDL Cholesterol 28 <30 mg/dL 05/31/19 4:41 AM [facility] TC:HDL Ratio 3.22 <5.10 05/30/2024 4:41 AM [facility] LDL Cholesterol, Calculated 63 <100 mg/dL 05/30/2024 4:41 AM [facility] Comment: <100 mg/dL, Optimal 100-129 mg/dL, Near optimal/above optimal 130-159 mg/dL, Borderline high 160-189 mg/dL, High >189 mg/dL, Very high Secondary prevention optimal LDL Cholesterol levels are recommended to be < 70 mg/dL LDL:HDL Ratio 1.54 <2.54 05/30/2024 4:41 AM [facility] Comment: Reference: 1. National Cholesterol Education Program ATP III Guideline At-A-Glance Quick Desk Reference: National Heart, Lung, and Blood [place]. National Institutes of Health. 2001: NIH Publication No. 01-3305. 2. An International Atherosclerosis Society position paper: global recommendations for the management of dyslipidemia: executive summary, Atherosclerosis. 2014: 232(2):410-413. Blood BLOOD SPECIMEN / Unknown Venipuncture / Unknown 05/29/2024 2:55 PM EDT 05/29/2024 2:55 PM EDT Greg Nina APRN.[facility] Final R esult Performing Organization Address City/[facility]/ZIP Co de Phone Number [facility] [address] [place] [phone], [place] [facility] [address] [place] [address], [place] * (ABNORMAL) HEMOGLOBIN A1C (05/29/2024 2:55 PM EDT) Hemoglobin A1C 6.5(H) 4.3 - 5.6 % 05/30/2024 6:18 AM EDT [facility] Comment:[place] Diabetes As sociation guidelines indicate that patients with HgbA1c in the range 5.7-6.4% are at increased risk for development of diabetes, and intervention by lifestyle modification may be beneficial. HgbA1c greater or equal to 6.5% is considered diagnostic of diabetes. Estimated Average Glucose 140 mg/dL 05/30/2024 6:18 AM EDT [facility] Comment:eAG: (Estimated aver age glucose) is a calculated value from HgbA1c and is patient representative of the average blood glucose level in the last 2-3 month period. Blood BLOOD SPECIMEN / Unknown Venipuncture / Unknown 05/29/2024 2:55 PM EDT 05/29/2024 2:55 PM EDT Greg Nina APRN.NETWORK DEVELOPMENT COORDINATOR LABORATORY Final R esult [facility] [address] [address], [place] * (ABNORMAL) COMPREHENSIVE METABOLIC PANEL (05/29/2024 2:55 PM EDT) Protein, Total 6.4 6.3 - 8.0 g/dL 05/30/2024 4:41 AM EDT [facility] Albumin 3.6(L) 3.9 - 4.9 g/dL 05/30/2024 4:41 AM EDT [facility] Calcium, Total 8.4(L) 8.5 - 10.2 mg/dL 05/30/2024 4:41 AM [facility] Bilirubin, Total 0.2 0.2 - 1.3 mg/dL 05/30/2024 4:41 AM [facility] Alkaline Phosphatase 248(H) 34 - 123 U/L 05/30/2024 4:41 AM [facility] AST 38(H) 13 - 35 U/L 05/30/2024 4:41 AM [facility] ALT 43(H) 7 - 38 U/L 05/30/2024 4:41 AM [facility] Glucose 280(H) 74 - 99 mg/dL 05/30/2024 4:41 AM [facility] Comment: The [place] Diabetes Association (ADA) provides guidance for cutoff [...] Standards of Medical Care in Diabetes 2016, [place] Diabetes Association. Diabetes Care. 2016.39(Suppl 1). BUN 6(L) 7 - 21 mg/dL 05/30/2024 4:41 AM [facility] Creatinine 0.92 0.58 - 0.96 mg/dL 05/30/2024 4:41 AM [facility] Sodium 138 136 - 144 mmol/L 05/30/2024 4:41 AM [facility] Potassium 4.1 3.7 - 5.1 mmol/L 05/30/2024 4:41 AM [facility] Chloride 107 98 - 107 mmol/L 05/30/2024 4:41 AM [facility] CO2 19(L) 22 - 30 mmol/L 05/30/2024 4:41 AM [facility] Anion Gap 12 8 - 15 mmol/L 05/30/2024 4:41 AM EDT [facility] Estimated Glomerular Filtration Rate 76 >=60 mL/min/1.7 3m 05/30/2024 4:41 AM EDT [facility] Comment:Estimated Glomerular Filtration Rate (eGFR) [...] 05/29/2024 2:55 PM EDT us Greg Nina APRN.NETWORK DEVELOPMENT COORDINATOR LABORATORY Final R esult [facility] [address] [place] [address], [place] * JUS SCREENING W SURINDER (10/27/2022 10:46 AM EDT) Anatomical Region Laterality Modality Breast Other 10/27/2022 10:4 6 AM EDT Impressions 10/28/2022 7:43 AM EDT IMPRESSION: NEGATIVE There is no mammographic evidence of malignancy. A 1 year screening mammogram is recommended. The exam was reviewed by a staff physician. karen Canada M.D., D.O./caron:10/27/2022 11:12:38 Warranty Administrator(s): RT Kristin(Pierce)(M), [facility] letter sent: Normal over 40 Mammogram BI-RADS: [...] Health, Family Medicine, and Medical/Surgical Oncology, the [facility] has carefully reviewed the data and [...] their providers when to stop screening mammograms. Olive Grader: Caron Transcribe Date/Time: Oct 27 2022 10:26A [...] Physician Interpretation * * * * RESULT: #[id number] - JUS SCREENING W SUIRNDER BILATERAL FIRST EVER DIGITAL SCREENING MAMMOGRAM TOMOSYNTHESIS [...] seen in either breast. Procedure Note Provider, [facility] [place] - 10/28/2022 * * *Final Report* * * DATE OF EXAM: Oct 27 2022 10:46AM [id number] - JUS SCREENING W SURINDER / PROCEDURE REASON: Encounter for screening mammogram for malignant neoplasm of breast * * * * Physician Interpretation * * * * RESULT: #[id number] - JUS SCREENING W SURINDER BILATERAL FIRST [...] by a staff physician. Anne pack,karen/caron:10/27/2022 11:12:38 Warranty Administrator(s): RT Kristin(Pierce)(M), [facility] letter sent: Normal over 40 Mammogram BI-RADS: [...] Health, Family Medicine, and Medical/Surgical Oncology, the [facility] has carefully reviewed the data and [...] their providers when to stop screening mammograms. Olive Grader: Caron Transcribe Date/Time: Oct 27 2022 10:26A Dictated by: JING HALL, DO This examination was interpreted and the report reviewed and electronically signed by: ANNE BOB MD on Oct 27 2022 11:12AM EST us Eleanor Chanel DO JUS-PAMA Final Res ult * PAP TEST (06/11/2022 12:41 PM EDT) Case Report Gynecologic Cytology Report Case: [id number] Authorizing Provider: Eleanor Chanel DO Collected: 06/11/2022 12:41 PM Ordering Location: CB/Gynecology Received: 06/12/2022 05:13 AM First Screen: Chiara Salguero CT, ASCP Rescreen: LEO Ng, ASCP Specimen: Pap Test, ThinPrep, Cervix 06/18/2022 12:27 PM EDT [facility] FINAL DIAGNOSIS A - Cervix Satisfactory for interpretation Negative for Intraepithelial lesion or malignancy. 06/18/2022 12:27 PM EDT [facility] at 1227 EDT LMP 04/06/2022 06/18/2022 12:27 PM EDT [facility] Pap Disclaimer The Pap Smear is a screening test for cervical cancer. False negative results occur with all screening tests, emphasizing the need for rescreening at recommended intervals, and clinical correlation. 06/18/2022 12:27 PM EDT [facility] PAP Meat Stringer Comment This specimen has been analyzed by the ThinPrep Imaging System, an automated imaging and review system, which assists the laboratory in evaluating cells on ThinPrep Pap tests. Following automated imaging, selected rojas from every slide are reviewed by a door to door sales representative. 06/18/2022 12:27 PM EDT [facility] Performing Lab Technical component, door to door sales representative screening performed at [facility], [address] [place] [facility] [address] CLIA# [id number] Diagnostic interpretation performed at [facility], [address] [place] [facility] [address] CLIA# [id number] Nutrition Tech: Moshe Craft M.D. 06/18/2022 12:27 PM EDT [facility] Clinical History Routine Exam 2022 12:27 PM EDT [facility] Comment:h/o CIN1 HPV Reflex Auto HPV 06/18/2022 12:27 PM EDT [facility] Cytology Interpretation Negative for Intraepithelial lesion or malignancy. 06/18/2022 12:27 PM EDT [facility] at 1227 EDT Sterile Fluid/Body Fluid CERVICAL / Unknown Non Blood / Unknown 06/11/2022 12:41 PM EDT 06/12/2022 5:13 AM EDT us Eleanor Chanel DO CYTOLOGY Final Res ult Performing Organization Address City/[facility] Co de Phone Number [facility] [address] [facility] [place] [address], * HCV QUANT RNA BY PCR (12/27/2020 12:49 PM EST) [facility] HCV RNA by PCR HCV RNA not detected by PCR. IU/mL 12/27/2020 8:00 PM EST [facility] Comment: Reference Range: Negative for HCV RNA The Linear Range of this assay is 15 IU/mL to 100,000,000 IU/mL. Blood OTHER / Unknown 12/27/2020 1 2:49 PM EST 12/27/2020 12:51 PM EST us Lorenzo Perry DO LABORATORY Final Resul t [facility] [address] [facility] [place] [address] [facility] [address] [place] [address] * COLONOSCOPY (10/13/2017 8:01 AM EDT) Pathologist [facility] Gastrointestinal Endoscopy Patient Name: Esme Reyes Procedure Date: 10/13/2017 8:01 AM Account Number: Date of : 1975 Admit Type: Outpatient Age: 42 Room: [facility] A Gender: Female Note Status: Finalized [...] Pardo in one week for pathology results [id number] if you have not received letter, call [...] [facility] 10/13/2017 8:01 AM EDT Alana Pardo MD, PhD [facility] Final Result [facility] [address] [place] [address] [facility] from Last 3 Months or Most Recently Relevant to Health Maintenance Insurance * Guarantor: Esme Reyes Account Type Relation to Patient Date of Phone Billing Address Personal/Family Self 1975 [address] [place] [address] [place] * Guarantor: Mayur Reyeswna Account Type Relation to Patient Date of Phone Billing Address Vision Self 1975 [address] [place] [address] * Guarantor: Mayur Reyeswna Account Type Relation to Patient Date of Phone Billing Address Self Pay Self 1975 [address] [place] [address] [place] [address] Advance Directives Documents on File Type Date Recorded Patient Partnership Manager Expl anation Advance Directive(s) 11/05/2016 3:51 PM Care Teams Marketing Programs Manager Relationship Specialty Start Date End Date Farhat Cabezas MD PCP - General Family Medicine 01/13/11 Farhat Cabezas MD Referring Family Medicine 01/08/22 Farhat Cabezas MD [address] [place] [address] Referring Family Medicine 07/26/24
--- OUTSIDE RECORDS SUMMARY | 2024-08-21 15:40 | XMS_ITS | Encounter Summary ---
Author Organization [facility] Address [address] [place] [address] Care Team Providers Care Claims Specialist Name Role Phone Farhat Cabezas MD Primary Care Provider [phone] Farhat Cabezas MD Unavailable [phone] Farhat Cabezas MD Unavailable [phone] Source Comments In the event this information is protected by the Federal Confidentiality of Alcohol and Drug AbusePatient Records regulations: The Federal rules restrict any use of the information to criminally investigate or prosecute any alcohol or drug abuse patient.[facility] Encounter Details Date Type Department Care Team (Late st Contact Info) Description 02/09/2018 Patient Msg General Surgery [address] [place] [address] Monica Adam RN labs Social [...] Info) Description 08/30/2024 9:30 AM EDT [facility] Endocrinology [address] [place] [phone] Greg Nina APRN.ENGINEERING GROUP LEADER [address] [place] [address] diabetes follow up with me in 3 months virtually 11/20/2024 1:00 PM EDT [facility] Endocrinology [address] [place] [address] Valdez Suarez MD [address] [place] [address] [address] [place], [place] [id number] follow up in 6 months documented as of this encounter Visit Diagnoses Not on filedocumented in this encounter Care Teams Claims Specialist Relationship Specialty Start Date End Date Farhat Cabezas MD PCP - General Family Medicine 01/13/11 Farhat Cabezas MD Referring Family Medicine 01/08/22 Farhat Cabezas MD [address] [place] [address] Referring Family Medicine 07/26/24 documented as of this encounter
--- OUTSIDE RECORDS SUMMARY | 2024-08-21 15:40 | XMS_ITS | Encounter Summary ---
Author Organization [facility] Address [address] [place] [address] Care Team Providers Care Search Engineer Name Role Phone Farhat Cabezas MD Primary Care Provider [phone] Farhat Cabezas MD Unavailable [phone] Farhat Cabezas MD Unavailable [phone] Source Comments In the event this information is protected by the Federal Confidentiality of Alcohol and Drug AbusePatient Records regulations: The Federal rules restrict any use of the information to criminally investigate or prosecute any alcohol or drug abuse patient.[facility] Encounter Details Date Type Department Care Team (Late st Contact Info) Description 04/15/2018 Patient Msg Medical Records [address] [place] [address] Provider, Ccf Counseling Referrals Social History Tobacco [...] AM EDT [facility] Endocrinology [address] [place] [phone] Greg Nina APRN.FRONT OFFICE SUPERVISOR [address] [place] [address] diabetes follow up with me in 3 months virtually 11/20/2024 1:00 PM EDT [facility] Endocrinology [address] [place] [address] Valdez Suarez MD [address] [place] [address] [address] [place], [place] 3154635 follow up in 6 months documented as of this encounter Visit Diagnoses Not on filedocumented in this encounter Care Teams Search Engineer Relationship Specialty Start Date End Date Farhat Cabezas MD PCP - General Family Medicine 01/13/11 Farhat Cabezas MD Referring Family Medicine 01/08/22 Farhat Cabezas MD [address]65 [place] [address] Referring Family Medicine 07/26/24 documented as of this encounter
--- OUTSIDE RECORDS SUMMARY | 2024-08-21 15:40 | XMS_ITS | Encounter Summary ---
Author Organization [facility] Address [address] [place] [address] Care Team Providers Care Hospice Nurse Name Role Phone Farhat Cabezas MD Primary Care Provider [phone] Farhat Cabezas MD Unavailable [phone] Farhat Cabezas MD Unavailable [phone] Source Comments In the event this information is protected by the Federal Confidentiality of Alcohol and Drug AbusePatient Records regulations: The Federal rules restrict any use of the information to criminally investigate or prosecute any alcohol or drug abuse patient.[facility] Encounter Details Date Type Department Care Team (Late st Contact Info) Description 10/04/2017 Patient Msg General Surgery [address] [place] [address] Provider, Ccf EGD/Colonoscopy Prep Instructions for 10/13/17 [...] Contact Info) Description 08/30/2024 9:30 AM EDT [facility] Endocrinology [address] [place] [address] Greg Nina APRN.PROGRAM SUPPORT SPECIALIST [address] [place] [address] diabetes follow up with me in 3 months virtually 11/20/2024 1:00 PM EDT [facility] Endocrinology [address] [place] [address] Valdez Suarez MD [address] [place] [address] [address] [place], [place] 1760235 follow up in 6 months documented as of this encounter Visit Diagnoses Not on filedocumented in this encounter Care Teams Hospice Nurse Relationship Specialty Start Date End Date Farhat Cabezas MD PCP - General Family Medicine 01/13/11 Farhat Cabezas MD Referring Family Medicine 01/08/22 Farhat Cabezas MD [address] [place] [address] Referring Family Medicine 07/26/24 documented as of this encounter
--- OUTSIDE RECORDS SUMMARY | 2024-08-21 15:40 | XMS_ITS | Encounter Summary ---
Author Organization [facility] Address [address] [place] [address] Care Team Providers Care Cleaner And Preparer Name Role Phone Farhat Cabezas MD Primary Care Provider [phone] Farhat Cabezas MD Unavailable [phone] Farhat Cabezas MD Unavailable [phone] Source Comments In the event this information is protected by the Federal Confidentiality of Alcohol and Drug AbusePatient Records regulations: The Federal rules restrict any use of the information to criminally investigate or prosecute any alcohol or drug abuse patient.[facility] Encounter Details Date Type Department Care Team (Late st Contact Info) Description 05/26/2018 Abstract BMI [facility] REJ [address] [place] [address] Rachel Yi MD 9500 [place] [address] Social History Tobacco Use Types [...] AM EDT [facility] Endocrinology [address] [place] [address] Greg Nina APRN.SUPERVISOR PURIFICATION [address] [place] [address] diabetes follow up with me in 3 months virtually 11/20/2024 1:00 PM EDT Distance [facility] Endocrinology [address] [place] [address] Valdez Suarez MD [address] [place] [address] [address] [place], [place] 9854535 follow up in 6 months documented as of this encounter Visit Diagnoses Not on filedocumented in this encounter Care Teams Cleaner And Preparer Relationship Specialty Start Date End Date Farhat Cabezas MD PCP - General Family Medicine 01/13/11 Farhat Cabezas MD Referring Family Medicine 01/08/22 Farhat Cabezas MD [address] [place] [address] Referring Family Medicine 07/26/24 documented as of this encounter
--- OUTSIDE RECORDS SUMMARY | 2024-08-21 15:40 | XMS_ITS | Encounter Summary ---
Demographics Address [address] [place] [address] Home Phone Mobile Phone Email Address Preferred Language ENG Marital Status Single Hoahaoism Affiliation Unknown Race White Ethnic Group Not or Lati no Author Organization [facility] Address [address] [place] [address] Care Team Providers Care Beer Brewer Name Role Phone Farhat Cabezas MD Primary Care Provider [phone] Farhat Cabezas MD Unavailable [phone] Farhat Cabezas MD Unavailable [phone] Source Comments In the event this information is protected by the Federal Confidentiality of Alcohol and Drug AbusePatient Records regulations: The Federal rules restrict any use of the information to criminally investigate or prosecute any alcohol or drug abuse patient.[facility] Encounter Details Date Type Department Care Team (Late st Contact Info) Description 01/20/2021 [place] [address] Provider, Ccf MRI Screening Questionnaire Completion Required [...] N ot on file 01/16/2020 Data from: https://www.magruder hospitalatlas.[facility]/. Last address used for calculation Not on [...] PM Mona uDbose (Rn) (Hist), RN * Do you have [...] [facility] Endocrinology [address] [place] [address] Greg Nina APRN.MACHINE PRECISION ETCHER [address] [place], [place] [phone] diabetes follow up with me in 3 months virtually 11/20/2024 1:00 PM EDT [facility] Endocrinology [address] [place] [address] Valdez Suarez MD [address] [place] [address] [address] [place], [place] 2637235 follow up in 6 months documented as of this encounter Visit Diagnoses Not on filedocumented in this encounter Care Teams Beer Brewer Relationship Specialty Start Date End Date Farhat Cabezas MD PCP - General Family Medicine 01/13/11 Farhat Cabezas MD Referring Family Medicine 01/08/22 [place] [address] [place] [address] Referring Family Medicine 07/26/24 documented as of this encounter
--- OUTSIDE RECORDS SUMMARY | 2024-08-21 15:41 | XMS_ITS | Encounter Summary ---
Demographics Address [address] [place] [address] Home Phone Mobile Phone Email Address Preferred Language ENG Marital Status Single Jewish Affiliation Unknown Race White Ethnic Group Not or Lati no Author Organization [facility] Address [address] [place] [address] Care Team Providers Care Mineral Surveyor Name Role Phone Farhat Cabezas MD Primary Care Provider [phone] Farhat Cabezas MD Unavailable [phone] Farhat Cabezas MD Unavailable [phone] Source Comments In the event this information is protected by the Federal Confidentiality of Alcohol and Drug AbusePatient Records regulations: The Federal rules restrict any use of the information to criminally investigate or prosecute any alcohol or drug abuse patient.[facility] Encounter Details Date Type Department Care Team (Late st Contact Info) Description 02/05/2023 Patient Msg Endocrinology [address] [place] [address] [place] [address] [place], [place] [phone] Resources Social History Tobacco Use Types Packs/Day [...] risk 2 12/21/2022 Data from: https://www.neighborhoodatlas.medicine.[facility]/. Last address used for [...] 08/30/2024 9:30 AM EDT [facility] Endocrinology [address] [place] [address] Greg Nina APRN.COMPETITIVE ATHLETE [address] [place], [place] 2265339 diabetes follow up with me in 3 months virtually 11/20/2024 1:00 PM EDT [facility] Endocrinology [address] [place] [address] Valdez Suarez MD [address] [place] [address] [address] [place], [place] [phone] follow up in 6 months documented as of this encounter Visit Diagnoses Not on filedocumented in this encounter Care Teams Mineral Surveyor Relationship Specialty Start Date End Date Farhat Cabezas MD PCP - General Family Medicine 01/13/11 Farhat Cabezas MD Referring Family Medicine 01/08/22 [place] [address] [place] [address] Referring Family Medicine 07/26/24 documented as of this encounter
--- OUTSIDE RECORDS SUMMARY | 2024-08-21 15:41 | XMS_ITS | Encounter Summary ---
Demographics Address [address] [place] [address] Home Phone Mobile Phone Email Address Preferred Language ENG Marital Status Single Advent Affiliation Unknown Race White Ethnic Group Not or Lati no Author Organization [facility] Address [address] [place] [address] Care Team Providers Care Wheel Cutter Name Role Phone Farhat Cabezas MD Primary Care Provider [phone] Farhat Cabezas MD Unavailable [phone] Farhat Cabezas MD Unavailable [phone] Source Comments In the event this information is protected by the Federal Confidentiality of Alcohol and Drug AbusePatient Records regulations: The Federal rules restrict any use of the information to criminally investigate or prosecute any alcohol or drug abuse patient.[facility] Encounter Details Date Type Department Care Team (Late st Contact Info) Description 04/26/2023 Patient Msg Endocrinology [address] [place] [address] [place] [address] [place] [address] Board Complaint Filed Social History [...] is lower risk 2 12/21/2022 Data from: https://www.neighborhoodatlas.medicine.[facility]/. Last address used for [...] 9:30 AM EDT [facility] Endocrinology [address] [place] [address] Greg Nina APRN.COURTROOM CLERK [address] [place] [address] diabetes follow up with me in 3 months virtually 11/20/2024 1:00 PM EDT [facility] Endocrinology [address] [place] [address] Valdez Suarez MD [address] [place] [address] [address] [place], [place] 64647[address] follow up in 6 months documented as of this encounter Visit Diagnoses Not on filedocumented in this encounter Care Teams Wheel Cutter Relationship Specialty Start Date End Date Farhat Cabezas MD PCP - General Family Medicine 01/13/11 Farhat Cabezas MD Referring Family Medicine 01/08/22 Farhat Cabezas MD 1265 [place] [address] Referring Family Medicine 07/26/24 documented as of this encounter
--- OUTSIDE RECORDS SUMMARY | 2024-08-21 15:41 | XMS_ITS | Encounter Summary ---
Demographics Address [address] [facility] [place] [address] Home Phone Mobile Phone Email Address Preferred Language ENG Marital Status Single Alevism Affiliation Unknown Race White Ethnic Group Not or Lati no Author Organization [facility] Address [facility] [place] [address] Care Team Providers Care Can Line Operator Name Role Phone Farhat Cabzeas MD Primary Care Provider [phone] Farhat Cabezas MD Unavailable [phone] Farhat Cabezas MD Unavailable [phone] Source Comments In the event this information is protected by the Federal Confidentiality of Alcohol and Drug AbusePatient Records regulations: The Federal rules restrict any use of the information to criminally investigate or prosecute any alcohol or drug abuse patient.[facility] Encounter Details Date Type Department Care Team (Late st Contact Info) Description 11/17/2022 Get Medical Advice Neurology [address] [place] [address] Thaddeus Diggs MD [address] [place] [address] Neck/ Neuro / symptoms Social [...] 4 06/11/2022 Data from: https://www.neighborhoodatlas.medicine.[facility]/. Last address used for calculation [address] 06/11/2022 Comments No Sex and Gender [...] Contact Info) Description 08/30/2024 9:30 AM EDT [facility] Endocrinology [address] [place] [address] Greg Nina, MARITZA.AUTO COLLISION REPAIR INSTRUCTOR [address] [place] [address] diabetes follow up with me in 3 months virtually 11/20/2024 1:00 PM EDT [facility] Endocrinology [address] [place] [address] Valdez Suarez MD [address] [place] [address] [place] [address] follow up in 6 months documented as of this encounter Visit Diagnoses Not on filedocumented in this encounter Care Teams Can Line Operator Relationship Specialty Start Date End Date Farhat Cabezas MD PCP - General Family Medicine 01/13/11 Farhat Cabezas MD Referring Family Medicine 01/08/22 Farhat Cabezas MD [address] [place] [address] Referring Family Medicine 07/26/24 documented as of this encounter
--- OUTSIDE RECORDS SUMMARY | 2024-08-21 15:41 | XMS_ITS | Encounter Summary ---
Demographics Address [address] [facility] [place] [address] Home Phone Mobile Phone Email Address [email or web address] Preferred Language ENG Marital Status Single Roman Catholic Affiliation Unknown Race White Ethnic Group Not or Lati no Author Organization [facility] Address [address] [place] [address] Care Team Providers Care Frame Runner Name Role Phone Farhat Cabezas MD Primary Care Provider [phone] Farhat Cabezas MD Unavailable [phone] Farhat Cabezas MD Unavailable [phone] Source Comments In the event this information is protected by the Federal Confidentiality of Alcohol and Drug AbusePatient Records regulations: The Federal rules restrict any use of the information to criminally investigate or prosecute any alcohol or drug abuse patient.[facility] Encounter Details Date Type Department Care Team (Late st Contact Info) Description 10/23/2020 Patient Msg Pre Anesthesia [address] [place], [place] [phone] Dunia Pickett PA-C [address] [place] [address] Preop Instructions Social History Tobacco [...] N ot on file 01/16/2020 Data from: https://www.neighborhoodatlas.medicine.[facility].edu/. Last address used for calculation Not [...] AM EDT [facility] Endocrinology [address] [place] [address] Greg Nina, MARITZA.GAS ENGINE OPERATOR GENERATORS [address] [place] [address] diabetes follow up with me in 3 months virtually 11/20/2024 1:00 PM EDT [facility] Endocrinology [address] [place] [address] Valdez Suarez MD [address] [place] [address] [address] [place], [place] 30698[address] follow up in 6 months documented as of this encounter Visit Diagnoses Not on filedocumented in this encounter Care Teams Frame Runner Relationship Specialty Start Date End Date Farhat Cabezas MD PCP - General Family Medicine 01/13/11 Farhat Cabezas MD Referring Family Medicine 01/08/22 Farhat Cabezas MD [facility] [place] [address] Referring Family Medicine 07/26/24 documented as of this encounter
--- OUTSIDE RECORDS SUMMARY | 2024-08-21 15:41 | XMS_ITS | Encounter Summary ---
Demographics Address [address] [facility] [place] [place] [address] Home Phone Mobile Phone Email Address Preferred Language ENG Marital Status Single Christianity Affiliation Unknown Race White Ethnic Group Not or Lati no Author Organization [facility] Address [address] [place] [address] Care Team Providers Care Nuclear Equipment Test Engineer Name Role Phone Farhat Cabezas MD Primary Care Provider [phone] Farhat Cabezas MD Unavailable [phone] Farhat Cabezas MD Unavailable [phone] Source Comments In the event this information is protected by the Federal Confidentiality of Alcohol and Drug AbusePatient Records regulations: The Federal rules restrict any use of the information to criminally investigate or prosecute any alcohol or drug abuse patient.[facility] Encounter Details Date Type Department Care Team (Late st Contact Info) Description 04/14/2023 Get Medical Advice Gastroenterology [address] [address] Adilene Morgan APRN.[facility] 9500 [place] [address] ABD PAIN, VOMITTING / OBSTRUCTION? [...] is lower risk 2 12/21/2022 Data from: https://www.neighborhoodatlas.medicine.[facility]/. Last address [...] AM EDT [facility] Endocrinology [address] [place] [address] Greg Nina, MARITZA.STUDENT ASSISTANT [address] [place] [address] diabetes follow up with me in 3 months virtually 11/20/2024 1:00 PM EDT [facility] Endocrinology [address] [place] [address] Valdez Suarez MD [address] [place] [address] [place] [address] follow up in 6 months documented as of this encounter Visit Diagnoses Not on filedocumented in this encounter Care Teams Nuclear Equipment Test Engineer Relationship Specialty Start Date End Date Farhat Cabezas MD PCP - General Family Medicine 01/13/11 Farhat Cabezas MD Referring Family Medicine 01/08/22 Farhat Cabezas MD [address] [place] [address] Referring Family Medicine 07/26/24 documented as of this encounter
--- OUTSIDE RECORDS SUMMARY | 2024-08-21 15:41 | XMS_ITS | Encounter Summary ---
Demographics Address [address] [facility] [place] [address] Home Phone Mobile Phone Email Address Preferred Language ENG Marital Status Single Religion Affiliation Unknown Race White Ethnic Group Not or Lati no Author Organization [facility] Address [facility] [place] [address] Care Team Providers Care Underwriter Name Role Phone Farhat Cabezas MD Primary Care Provider [phone] Farhat Cabezas MD Unavailable [phone] Farhat Cabezas MD Unavailable [phone] Source Comments In the event this information is protected by the Federal Confidentiality of Alcohol and Drug AbusePatient Records regulations: The Federal rules restrict any use of the information to criminally investigate or prosecute any alcohol or drug abuse patient.[facility] Encounter Details Date Type Department Care Team (Late st Contact Info) Description 12/01/2022 Patient Msg Neurology 5334 [place] [address] Thaddeus Diggs MD [address] [place] [address] Follow up Social History Tobacco [...] is lower risk 4 06/11/2022 Data from: https://www.neighborhoodatlas.medicine.[facility]/. Last address used for calculation [address] 06/11/2022 Comments No Sex and Gender [...] 08/30/2024 9:30 AM EDT [facility] Endocrinology [address] [place] [address] Greg Nina, MARITZA.SWEEPER BRUSH MAKER MACHINE [address] [place], [place] 15930[address] diabetes follow up with me in 3 months virtually 11/20/2024 1:00 PM EDT [facility] Endocrinology [address] [place] [address] Valdez Suarez MD [address] [place] [address] [place], [place] 27[address] follow up in 6 months documented as of this encounter Visit Diagnoses Not on filedocumented in this encounter Care Teams Underwriter Relationship Specialty Start Date End Date Farhat Cabezas MD PCP - General Family Medicine 01/13/11 Farhat Cabezas MD Referring Family Medicine 01/08/22 Farhat Cabezas MD [address] [place] [address] Referring Family Medicine 07/26/24 documented as of this encounter
--- OUTSIDE RECORDS SUMMARY | 2024-08-21 15:41 | XMS_ITS | Encounter Summary ---
Demographics Address [address] [place] [address] Home Phone Mobile Phone Email Address Preferred Language ENG Marital Status Single Mandaen Affiliation Unknown Race White Ethnic Group Not or Lati no Author Organization [facility] Address [address] [place] [address] Care Team Providers Care Gas Charger Name Role Phone Farhat Cabezas MD Primary Care Provider [phone] Farhat Cabezas MD Unavailable [phone] Farhat Cabezas MD Unavailable [phone] Source Comments In the event this information is protected by the Federal Confidentiality of Alcohol and Drug AbusePatient Records regulations: The Federal rules restrict any use of the information to criminally investigate or prosecute any alcohol or drug abuse patient.[facility] Encounter Details Date Type Department Care Team (Late st Contact Info) Description 03/16/2023 Patient Msg Endocrinology [address] [place] [address] Sara Stomr LSW [address] [place] [address] Following up Social History Tobacco [...] lower risk 2 12/21/2022 Data from: https://www.neighborhoodatlas.medicine.[facility]/. Last address [...] PM Mona Dbuose (Rn) (Hist), RN * Because of a [...] 08/30/2024 9:30 AM EDT [facility] Endocrinology [address] [place] [address] Greg Nina APRN.MEDICAL EQUIPMENT REPAIRER [address] [place] [address] diabetes follow up with me in 3 months virtually 11/20/2024 1:00 PM EDT [facility] Endocrinology [address] [place] [address] Valdez Suarez MD [address] [place] [address] [address] [place], [place] [phone] follow up in 6 months documented as of this encounter Visit Diagnoses Not on filedocumented in this encounter Care Teams Gas Charger Relationship Specialty Start Date End Date Farhat Cabezas MD PCP - General Family Medicine 01/13/11 Farhat Cabezas MD Referring Family Medicine 01/08/22 [place] [address] [place] [address] Referring Family Medicine 07/26/24 documented as of this encounter
--- OUTSIDE RECORDS SUMMARY | 2024-08-21 15:41 | XMS_ITS | Encounter Summary ---
Demographics Address [address] [place] [address] Home Phone Mobile Phone Email Address Preferred Language ENG Marital Status Single Hoahaoism Affiliation Unknown Race White Ethnic Group Not or Lati no Author Organization [facility] Address [address] [place] [address] Care Team Providers Care Housing Case Manager Name Role Phone Farhat Cabezas MD Primary Care Provider [phone] Farhat Cabezas MD Unavailable [phone] Farhat Cabezas MD Unavailable [phone] Source Comments In the event this information is protected by the Federal Confidentiality of Alcohol and Drug AbusePatient Records regulations: The Federal rules restrict any use of the information to criminally investigate or prosecute any alcohol or drug abuse patient.[facility] Encounter Details Date Type Department Care Team (Late st Contact Info) Description 04/09/2023 Patient Msg Pain Management [address] [place] [address] [place] [address] [facility] [address] [place] [address] Appointment Request Social History Tobacco [...] is lower risk 2 12/21/2022 Data from: https://www.neighborhoodatlas.medicine.[facility]/. Last address used for calculation [address] [...] 08/30/2024 9:30 AM EDT [facility] Endocrinology [address] [place] [address] Greg Nina APRN.[employer] [address] [place] [address] diabetes follow up with me in 3 months virtually 11/20/2024 1:00 PM EDT [facility] Endocrinology [address] [place] [address] Valdez Suarez MD [address] [place] [address] [address] [place], [place] [phone] follow up in 6 months documented as of this encounter Visit Diagnoses Not on filedocumented in this encounter Care Teams Housing Case Manager Relationship Specialty Start Date End Date Farhat Cabezas MD PCP - General Family Medicine 01/13/11 Farhat Cabezas MD Referring Family Medicine 01/08/22 [place] [address] [place] [address] Referring Family Medicine 07/26/24 documented as of this encounter
--- OUTSIDE RECORDS SUMMARY | 2024-08-21 15:41 | XMS_ITS | Encounter Summary ---
Demographics Address [address] [facility] [place] [address] Home Phone Mobile Phone Email Address Preferred Language ENG Marital Status Single Scientology Affiliation Unknown Race White Ethnic Group Not or Lati no Author Organization [facility] Address [facility] [place] [address] Care Team Providers Care Agency Trainer Name Role Phone Farhat Cabezas MD Primary Care Provider [phone] Farhat Cabezas MD Unavailable [phone] Farhat Cabezas MD Unavailable [phone] Source Comments In the event this information is protected by the Federal Confidentiality of Alcohol and Drug AbusePatient Records regulations: The Federal rules restrict any use of the information to criminally investigate or prosecute any alcohol or drug abuse patient.[facility] Encounter Details Date Type Department Care Team (Late st Contact Info) Description 01/28/2023 Get Medical Advice Neurology [address] [place] [address] Thaddeus Diggs MD [address] [place] [address] Continuing issues Social History Tobacco [...] risk 2 12/21/2022 Data from: https://www.neighborhoodatlas.medicine.[facility]/. Last address used for calculation [...] Date Author No 12/14/2016 12:43 PM Mona DbuoseRn) (Hist), RN documented in this encounter Plan of Treatment Upcoming Encounters Date Type Department Care Team (Late st Contact Info) Description 08/30/2024 9:30 AM EDT [facility] Endocrinology [address] [place] [address] Greg Nina, MARITZA.ADMINISTRATIVE ASSISTANT COORDINATOR [address] [place] [address] diabetes follow up with me in 3 months virtually 11/20/2024 1:00 PM EDT [facility] Endocrinology [address] [place] [address] Valdez Suarez MD [address] [place] [address] [address] [place], [place] 8289735 follow up in 6 months documented as of this encounter Visit Diagnoses Not on filedocumented in this encounter Care Teams Agency Trainer Relationship Specialty Start Date End Date Farhat Cabezas MD PCP - General Family Medicine 01/13/11 Farhat Cabezas MD Referring Family Medicine 01/08/22 [place] [address] [place] [address] Referring Family Medicine 07/26/24 documented as of this encounter
--- OUTSIDE RECORDS SUMMARY | 2024-08-21 15:41 | XMS_ITS | Encounter Summary ---
Author Organization [facility] Address [address] [place] [address] Care Team Providers Care Manager Program Management Name Role Phone Farhat Cabezas MD Primary Care Provider [phone] Farhat Cabezas MD Unavailable [phone] Farhat Cabezas MD Unavailable [phone] Source Comments In the event this information is protected by the Federal Confidentiality of Alcohol and Drug AbusePatient Records regulations: The Federal rules restrict any use of the information to criminally investigate or prosecute any alcohol or drug abuse patient.[facility] Encounter Details Date Type Department Care Team (Late st Contact Info) Description 10/22/2020 Patient [facility] [address] [place] [id number] Provider, Ccf Referral- WELLNESS CONSULT Social History [...] N ot on file 01/16/2020 Data from: https://www.german hospitalatlas.[facility]/. Last address used for calculation Not [...] Contact Info) Description 08/30/2024 9:30 AM EDT [facility] Endocrinology [address] [place] [address] Greg Nina APRN.WIRE BENDER HAND [address] [place] [address] diabetes follow up with me in 3 months virtually 11/20/2024 1:00 PM EDT [facility] Endocrinology [address] [place] [address] Valdez Suarez MD [address] [place] [address] [address] [place], [place] [id number] follow up in 6 months documented as of this encounter Visit Diagnoses Not on filedocumented in this encounter Care Teams Manager Program Management Relationship Specialty Start Date End Date Farhat Cabezas MD PCP - General Family Medicine 01/13/11 Farhat Cabezas MD Referring Family Medicine 01/08/22 [place] [address] [place] [address] Referring Family Medicine 07/26/24 documented as of this encounter
--- OUTSIDE RECORDS SUMMARY | 2024-08-21 15:41 | XMS_ITS | Encounter Summary ---
Demographics Address [address] [place] [address] Home Phone Mobile Phone Email Address Preferred Language ENG Marital Status Single Druze Affiliation Unknown Race White Ethnic Group Not or Lati no Author Organization [facility] Address [address] [place] [address] Care Team Providers Care Airport Guide Name Role Phone Farhat Cabezas MD Primary Care Provider [phone] Farhat Cabezas MD Unavailable [phone] Farhat Cabezas MD Unavailable [phone] Source Comments In the event this information is protected by the Federal Confidentiality of Alcohol and Drug AbusePatient Records regulations: The Federal rules restrict any use of the information to criminally investigate or prosecute any alcohol or drug abuse patient.[facility] Encounter Details Date Type Department Care Team (Late st Contact Info) Description 03/26/2023 Patient Msg Endocrinology [address] [place] [address] [place] [address] [place] [address] Draft Narrative Social History Tobacco [...] is lower risk 2 12/21/2022 Data from: https://www.neighborhoodatlas.medicine.[facility]/. Last address used for calculation [address] [...] Description 08/30/2024 9:30 AM EDT [facility] Endocrinology [address] [place] [address] Greg Nina APRN.TRUCKING SUPERVISOR [address] [place] [address] diabetes follow up with me in 3 months virtually 11/20/2024 1:00 PM EDT [facility] Endocrinology [address] [place] [address] Valdez Suarez MD [address] [place] [address] [address] [place], [place] 9494435 follow up in 6 months documented as of this encounter Visit Diagnoses Not on filedocumented in this encounter Care Teams Airport Guide Relationship Specialty Start Date End Date Farhat Cabezas MD PCP - General Family Medicine 01/13/11 Farhat Cabezas MD Referring Family Medicine 01/08/22 [place] [address] [place] [address] Referring Family Medicine 07/26/24 documented as of this encounter
--- OUTSIDE RECORDS SUMMARY | 2024-08-21 15:41 | XMS_ITS | Encounter Summary ---
Demographics Address [address] [place] [address] Home Phone Mobile Phone Email Address Preferred Language ENG Marital Status Single Orthodox Affiliation Unknown Race White Ethnic Group Not or Lati no Author Organization [facility] Address [facility] [place] [address] Care Team Providers Care Manager Competitive Intelligence Name Role Phone Farhat Cabezas MD Primary Care Provider [phone] Farhat Cabezas MD Unavailable [phone] Farhat Cabezas MD Unavailable [phone] Source Comments In the event this information is protected by the Federal Confidentiality of Alcohol and Drug AbusePatient Records regulations: The Federal rules restrict any use of the information to criminally investigate or prosecute any alcohol or drug abuse patient.[facility] Encounter Details Date Type Department Care Team (Late st Contact Info) Description 02/08/2023 Get Medical Advice Neurology [address] [place] [address] Thaddeus Diggs MD [address] [place] [address] Desperate for answer Social History [...] lower risk 2 12/21/2022 Data from: https://www.neighborhoodatlas.medicine.[facility]/. Last address used for calculation [address] [...] 08/30/2024 9:30 AM EDT [facility] Endocrinology [address] [place] [address] Greg Nina, MARITZA.HEALTH AND SOCIAL CARE TEACHER [address] [place], [place] [phone] diabetes follow up with me in 3 months virtually 11/20/2024 1:00 PM EDT [facility] Endocrinology [address] [place] [address] Valdez Suarez MD [address] [place] [address] [address] [place], [place] 0154[address] follow up in 6 months documented as of this encounter Visit Diagnoses Not on filedocumented in this encounter Care Teams Manager Competitive Intelligence Relationship Specialty Start Date End Date Farhat Cabezas MD PCP - General Family Medicine 01/13/11 Farhat Cabezas MD Referring Family Medicine 01/08/22 Farhat Cabezas MD [address] [place] [address] Referring Family Medicine 07/26/24 documented as of this encounter
--- OUTSIDE RECORDS SUMMARY | 2024-08-21 15:41 | XMS_ITS | Encounter Summary ---
Demographics Address [address] [facility] [place] [address] Home Phone Mobile Phone Email Address [email or web address] Preferred Language ENG Marital Status Single Yazdanism Affiliation Unknown Race White Ethnic Group Not or Lati no Author Organization [facility] Address [facility] [place] [address] Care Team Providers Care Home Maker Name Role Phone Farhat Cabezas MD Primary Care Provider [phone] Farhat Cabezas MD Unavailable [phone] Farhat Cabezas MD Unavailable [phone] Source Comments In the event this information is protected by the Federal Confidentiality of Alcohol and Drug AbusePatient Records regulations: The Federal rules restrict any use of the information to criminally investigate or prosecute any alcohol or drug abuse patient.[facility] Encounter Details Date Type Department Care Team (Late st Contact Info) Description 11/27/2022 Patient Msg Neurology [address] [place] [address] Thaddeus Diggs MD [address] [place] [address] MRI Social History Tobacco Use [...] lower risk 4 06/11/2022 Data from: https://www.neighborhoodatlas.medicine.[facility]/. Last address used for calculation [address] 06/11/2022 Comments No Sex and Gender [...] Contact Info) Description 08/30/2024 9:30 AM EDT [facility] Endocrinology [address] [place] [address] Greg Nina APRN.GLOBAL CHIEF EXPERIENCE OFFICER [address] [place] [address] diabetes follow up with me in 3 months virtually 11/20/2024 1:00 PM EDT [facility] Endocrinology [address] [place] [address] Valdez Suarez MD [address] [place] [address] [place], [place] 37[address] follow up in 6 months documented as of this encounter Visit Diagnoses Not on filedocumented in this encounter Care Teams Home Maker Relationship Specialty Start Date End Date Farhat Cabezas MD PCP - General Family Medicine 01/13/11 Farhat Cabezas MD Referring Family Medicine 01/08/22 Farhat Cabezas MD [address] [place] [address] Referring Family Medicine 07/26/24 documented as of this encounter
--- OUTSIDE RECORDS SUMMARY | 2024-08-21 15:41 | XMS_ITS | Encounter Summary ---
Demographics Address [address] [place] [address] Home Phone Mobile Phone Email Address Preferred Language ENG Marital Status Single Gnosticist Affiliation Unknown Race White Ethnic Group Not or Lati no Author Organization [facility] Address [address] [place] [address] Care Team Providers Care Physical Therapy Professor Name Role Phone Farhat Cabezas MD Primary Care Provider [phone] Farhat Cabezas MD Unavailable [phone] Farhat Cabezas MD Unavailable [phone] Source Comments In the event this information is protected by the Federal Confidentiality of Alcohol and Drug AbusePatient Records regulations: The Federal rules restrict any use of the information to criminally investigate or prosecute any alcohol or drug abuse patient.[facility] Encounter Details Date Type Department Care Team (Late st Contact Info) Description 02/19/2023 Patient Msg Endocrinology [address] [place] [address] [place] [address] [place] [address] Financial Resources Social History Tobacco [...] from: https://www.neighborhoodatlas.medicine.[facility]/. Last address used for calculation [...] AM EDT [facility] Endocrinology [address] [place] [address] Greg Nina APRN.LPC [address] [place] [address] diabetes follow up with me in 3 months virtually 11/20/2024 1:00 PM EDT [facility] Endocrinology [address] [place] [address] Valdez Suarez MD [address] [place] [address] [address] [place], [place] 9393035 follow up in 6 months documented as of this encounter Visit Diagnoses Not on filedocumented in this encounter Care Teams Physical Therapy Professor Relationship Specialty Start Date End Date Farhat Cabezas MD PCP - General Family Medicine 01/13/11 Farhat Cabezas MD Referring Family Medicine 01/08/22 [place] [address] [place] [address] Referring Family Medicine 07/26/24 documented as of this encounter
--- OUTSIDE RECORDS SUMMARY | 2024-08-21 15:41 | XMS_ITS | Encounter Summary ---
Demographics Address [address] [place] [address] Home Phone Mobile Phone Email Address Preferred Language ENG Marital Status Single Moravian Affiliation Unknown Race White Ethnic Group Not or Lati no Author Organization [facility] Address [address] [place] [address] Care Team Providers Care Fiberglass Auto Body Repairer Name Role Phone Farhat Cabezas MD Primary Care Provider [phone] Farhat Cabezas MD Unavailable [phone] Farhat Cabezas MD Unavailable [phone] Source Comments In the event this information is protected by the Federal Confidentiality of Alcohol and Drug AbusePatient Records regulations: The Federal rules restrict any use of the information to criminally investigate or prosecute any alcohol or drug abuse patient.[facility] Encounter Details Date Type Department Care Team (Late st Contact Info) Description 03/30/2023 Patient Msg Endocrinology [address] [place] [address] [place] [address] [place], [place] 4923006 Following up Social History Tobacco Use Types [...] is lower risk 2 12/21/2022 Data from: https://www.neighborhoodatlas.medicine.[facility]/. Last address used for calculation [address] [...] 08/30/2024 9:30 AM EDT [facility] Endocrinology [address] [place] [address] Greg Nina APRN.HOSE STRIPPER [address] [place] [address] diabetes follow up with me in 3 months virtually 11/20/2024 1:00 PM EDT [facility] Endocrinology [address] [place] [address] Valdez Suarez MD [address] [place] [address] [address] [place], [place] 06996[address] follow up in 6 months documented as of this encounter Visit Diagnoses Not on filedocumented in this encounter Care Teams Fiberglass Auto Body Repairer Relationship Specialty Start Date End Date Farhat Caebzas MD PCP - General Family Medicine 01/13/11 Farhat Cabezas MD Referring Family Medicine 01/08/22 [place] [address] [place] [address] Referring Family Medicine 07/26/24 documented as of this encounter
--- OUTSIDE RECORDS SUMMARY | 2024-08-21 15:41 | XMS_ITS | Encounter Summary ---
Demographics Address [address] [place] [address] Home Phone Mobile Phone Email Address Preferred Language ENG Marital Status Single Temple Affiliation Unknown Race White Ethnic Group Not or Lati no Author Organization [facility] Address [address] [place] [address] Care Team Providers Care Weaver Hand Name Role Phone Farhat Cabezas MD Primary Care Provider [phone] Farhat Cabezas MD Unavailable [phone] Farhat Cabezas MD Unavailable [phone] Source Comments In the event this information is protected by the Federal Confidentiality of Alcohol and Drug AbusePatient Records regulations: The Federal rules restrict any use of the information to criminally investigate or prosecute any alcohol or drug abuse patient.[facility] Encounter Details Date Type Department Care Team (Late st Contact Info) Description 04/19/2023 Patient Msg Orthopaedics [address] [place], [place] [phone] Provider, Ccpiero Saba Appointment Social History Tobacco [...] is lower risk 2 12/21/2022 Data from: https://www.neighborhoodatlas.[facility]/. Last address used for calculation [...] AM EDT [facility] Endocrinology [address] [place] [address] Greg Nina APRN.PYTHON DEVELOPER [address] [place] [address] diabetes follow up with me in 3 months virtually 11/20/2024 1:00 PM EDT [facility] Endocrinology [address] [place] [address] Valdez Suarez MD [address] [place] [address] [place], [place] [phone] follow up in 6 months documented as of this encounter Visit Diagnoses Not on filedocumented in this encounter Care Teams Weaver Hand Relationship Specialty Start Date End Date Farhat Cabezas MD PCP - General Family Medicine 01/13/11 Farhat Cabezas MD Referring Family Medicine 01/08/22 Farhat Cabezas MD [address] [place] [address] Referring Family Medicine 07/26/24 documented as of this encounter
--- OUTSIDE RECORDS SUMMARY | 2024-08-21 15:41 | XMS_ITS | Encounter Summary ---
Demographics Address [address] [place] [address] Home Phone Mobile Phone Email Address Preferred Language ENG Marital Status Single Catholic Affiliation Unknown Race White Ethnic Group Not or Lati no Author Organization [facility] Address [address] [place] [address] Care Team Providers Care Mid Level Developer Name Role Phone Farhat Cabezas MD Primary Care Provider [phone] Farhat Cabezas MD Unavailable [phone] Farhat Cabezas MD Unavailable [phone] Source Comments In the event this information is protected by the Federal Confidentiality of Alcohol and Drug AbusePatient Records regulations: The Federal rules restrict any use of the information to criminally investigate or prosecute any alcohol or drug abuse patient.[facility] Encounter Details Date Type Department Care Team (Late st Contact Info) Description 04/29/2023 Patient [facility] [place] [address] Renetta Moore RPh At your next appointment, choose [facility]. Social History Tobacco Use Types [...] risk 2 12/21/2022 Data from: https://www.neighborhoodatlas.[facility]/. Last address used for calculation [address] [...] 08/30/2024 9:30 AM EDT [facility] Endocrinology [address] [place] [address] Greg Nina APRN.CUSTOMER SERVICE SPECIALIST [address] [place], [place] 0672[address] diabetes follow up with me in 3 months virtually 11/20/2024 1:00 PM EDT [facility] Endocrinology [address] [place] [address] Valdez Suarez MD [address] [place] [address] [address] [place], [place] 4509[address] follow up in 6 months documented as of this encounter Visit Diagnoses Not on filedocumented in this encounter Care Teams Mid Level Developer Relationship Specialty Start Date End Date Farhat Cabezas MD PCP - General Family Medicine 01/13/11 Farhat Cabezas MD Referring Family Medicine 01/08/22 [place] [address] [place] [address] Referring Family Medicine 07/26/24 documented as of this encounter
--- OUTSIDE RECORDS SUMMARY | 2024-08-21 15:41 | XMS_ITS | Encounter Summary ---
Demographics Address [address] [facility] [place] [address] Home Phone Mobile Phone Email Address Preferred Language ENG Marital Status Single Worship Affiliation Unknown Race White Ethnic Group Not or Lati no Author Organization [facility] Address [address] [place] [address] Care Team Providers Care Metal Finish Inspector Name Role Phone Farhat Cabezas MD Primary Care Provider [phone] Farhat Cabezas MD Unavailable [phone] Farhat Cabezas MD Unavailable [phone] Source Comments In the event this information is protected by the Federal Confidentiality of Alcohol and Drug AbusePatient Records regulations: The Federal rules restrict any use of the information to criminally investigate or prosecute any alcohol or drug abuse patient.[facility] Encounter Details Date Type Department Care Team (Late st Contact Info) Description 04/09/2023 Patient Msg Endocrinology [address] [place] [address] Vinicius Márquez, STEEL BOX TOE INSERTER.FIELD ORGANIZER [address] [place] [address] Appointment Request Social History Tobacco Use Types [...] from: https://www.neighborhoodatlas.medicine.[facility]/. Last address used for calculation [address] [...] EDT [facility] Endocrinology [address] [place] [address] Greg Nina APRN.FIELD ORGANIZER [address] [place] [address] diabetes follow up with me in 3 months virtually 11/20/2024 1:00 PM EDT [facility] Endocrinology [address] [place] [address] Valdez Suarez MD [address] [place] [address] [address] [place], [place] 50[address] follow up in 6 months documented as of this encounter Visit Diagnoses Not on filedocumented in this encounter Care Teams Metal Finish Inspector Relationship Specialty Start Date End Date Farhat Cabezas MD PCP - General Family Medicine 01/13/11 Farhat Cabezas MD Referring Family Medicine 01/08/22 Farhat Cabezas MD [address] [place] [address] Referring Family Medicine 07/26/24 documented as of this encounter
--- OUTSIDE RECORDS SUMMARY | 2024-08-21 15:41 | XMS_ITS | Encounter Summary ---
Demographics Address [address] [facility] [place] [address] Home Phone Mobile Phone Email Address Preferred Language ENG Marital Status Single Christian Affiliation Unknown Race White Ethnic Group Not or Lati no Author Organization [facility] Address [address] [place] [address] Care Team Providers Care Claim Adjuster Name Role Phone Farhat Cabezas MD Primary Care Provider [phone] Farhat Cabezas MD Unavailable [phone] Farhat Cabezas MD Unavailable [phone] Source Comments In the event this information is protected by the Federal Confidentiality of Alcohol and Drug AbusePatient Records regulations: The Federal rules restrict any use of the information to criminally investigate or prosecute any alcohol or drug abuse patient.[facility] Encounter Details Date Type Department Care Team (Late st Contact Info) Description 04/15/2023 Patient Msg Gastroenterology [address] [address] Adilene Morgan APRN.[facility] [address] [place] [address] 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 Last address used for [...] 12/14/2016 12:43 PM oMna DuboseRn) (Hist), RN * Because of a [...] Info) Description 08/30/2024 9:30 AM EDT [facility] Endocrinology [address] [place] [address] Greg Nina APRN.DIRECTOR UNIVERSITY [address] [place] [address] diabetes follow up with me in 3 months virtually 11/20/2024 1:00 PM EDT [facility] Endocrinology [address] [place] [address] Valdez Suarez MD [address] [place] [address] [address] [place], [place] 4439035 follow up in 6 months documented as of this encounter Visit Diagnoses Not on filedocumented in this encounter Care Teams Claim Adjuster Relationship Specialty Start Date End Date Farhat Cabezas MD PCP - General Family Medicine 01/13/11 Farhat Cabezas MD Referring Family Medicine 01/08/22 Farhat Cabezas MD [address] [place] [address] Referring Family Medicine 07/26/24 documented as of this encounter
--- OUTSIDE RECORDS SUMMARY | 2024-08-21 15:41 | XMS_ITS | Clinical Summary ---
Author Organization [facility] Address [address] [place] [address] Care Team Providers Care Canal Boat Captain Name Role Phone Farhat Cabezas MD Primary Care Provider [phone] Allergies Active Allergy Reactions Criticality Noted Date [...] Plan of Treatment Not on file Insurance [facility] Care Teams Canal Boat Captain Relationship Specialty Start Date End Date Farhat Cabezas MD PCP - General Family Medicine 07/07/23
--- OUTSIDE RECORDS SUMMARY | 2024-08-21 15:41 | XMS_ITS | Encounter Summary ---
Demographics Address [address] [facility] [place] [address] Home Phone Mobile Phone Email Address Preferred Language ENG Marital Status Single Taoism Affiliation Unknown Race White Ethnic Group Not or Lati no Author Organization [facility] Address [address] [place] [address] Care Team Providers Care Spike Machine Heater Name Role Phone Farhat Cabezas MD Primary Care Provider [phone] Farhat Cabezas MD Unavailable [phone] Farhat Cabezas MD Unavailable [phone] Source Comments In the event this information is protected by the Federal Confidentiality of Alcohol and Drug AbusePatient Records regulations: The Federal rules restrict any use of the information to criminally investigate or prosecute any alcohol or drug abuse patient.[facility] Encounter Details Date Type Department Care Team (Late st Contact Info) Description 10/25/2020 Patient M[facility] [address] [place] [id number] Provider, Ccf Referral- WELLNESS CONSULT Social History [...] N ot on file 01/16/2020 Data from: https://www.[facility] hospital[facility]las.[facility]/. Last address used for calculation Not on [...] 9:30 AM EDT [facility] Endocrinology [address] [place] [address] Greg Nina APRN.IRON PILER [address] [place] [address] diabetes follow up with me in 3 months virtually 11/20/2024 1:00 PM EDT [facility] Endocrinology [address] [place] [address] Valdez Suarez MD [address] [place] [address] [address] [place], [place] [phone] follow up in 6 months documented as of this encounter Visit Diagnoses Not on filedocumented in this encounter Care Teams Spike Machine Heater Relationship Specialty Start Date End Date Farhat Cabezas MD PCP - General Family Medicine 01/13/11 Farhat Cabezas MD Referring Family Medicine 01/08/22 [place] [address] [place] [address] Referring Family Medicine 07/26/24 documented as of this encounter
--- OUTSIDE RECORDS SUMMARY | 2024-08-21 15:41 | XMS_ITS | Encounter Summary ---
Author Organization [facility] Address [address] [place] [address] Care Team Providers Care Electronic Installer Name Role Phone Farhat Cabezas MD Primary Care Provider [phone] Farhat Cabezas MD Unavailable [phone] Farhat Cabezas MD Unavailable [phone] Source Comments In the event this information is protected by the Federal Confidentiality of Alcohol and Drug AbusePatient Records regulations: The Federal rules restrict any use of the information to criminally investigate or prosecute any alcohol or drug abuse patient.[facility] Encounter Details Date Type Department Care Team (Late st Contact Info) Description 02/12/2023 Patient Msg Endocrinology [address] [place] [address] [place] [address] [place] [address] Crisis Lifeline Social History Tobacco [...] 12/21/2022 Data from: https://www.neighborhoodatlas.medicine.[facility]/. Last address used for calculation [...] AM EDT [facility] Endocrinology [address] [place] [address] Greg Nina APRN.AUTO REBUILDER [address] [place] [address] diabetes follow up with me in 3 months virtually 11/20/2024 1:00 PM EDT [facility] Endocrinology [address] [place] [address] Valdez Suarez MD [address] [place] [address] [address] [place], [place] [phone] follow up in 6 months documented as of this encounter Visit Diagnoses Not on filedocumented in this encounter Care Teams Electronic Installer Relationship Specialty Start Date End Date Farhat Cabezas MD PCP - General Family Medicine 01/13/11 Farhat Cabezas MD Referring Family Medicine 01/08/22 Farhat Cabezas MD [address] [place] [address] Referring Family Medicine 07/26/24 documented as of this encounter
--- OUTSIDE RECORDS SUMMARY | 2024-08-21 15:41 | XMS_ITS | Encounter Summary ---
Demographics Address [address] [place] [address] Home Phone Mobile Phone Email Address Preferred Language ENG Marital Status Single Synagogue Affiliation Unknown Race White Ethnic Group Not or Lati no Author Organization [facility] Address [address] [place] [address] Care Team Providers Care Chrome Worker Name Role Phone Farhat Cabezas MD Primary Care Provider [phone] Farhat Cabezas MD Unavailable [phone] Farhat Cabezas MD Unavailable [phone] Source Comments In the event this information is protected by the Federal Confidentiality of Alcohol and Drug AbusePatient Records regulations: The Federal rules restrict any use of the information to criminally investigate or prosecute any alcohol or drug abuse patient.[facility] Encounter Details Date Type Department Care Team (Late st Contact Info) Description 11/03/2020 Get Medical Advice Cardiology [address] [place] [address] Sea Collins DO [address] [place], [place] [phone] RE: Visit Follow Up Question Social History [...] N ot on file 01/16/2020 Data from: https://www.neighborhoodatlas.medicine.[facility]/. Last address used for calculation [...] Description 08/30/2024 9:30 AM EDT [facility] Endocrinology [address] [place] [address] Greg Nina APRN.SEARCH ENGINE MARKETING MANAGER [address] [place], [place] [phone] diabetes follow up with me in 3 months virtually 11/20/2024 1:00 PM EDT [facility] Endocrinology [address] [place] [address] Valdez Suarez MD [address] [place] [address] [place] [address] follow up in 6 months documented as of this encounter Visit Diagnoses Not on filedocumented in this encounter Care Teams Chrome Worker Relationship Specialty Start Date End Date Farhat Cabezas MD PCP - General Family Medicine 01/13/11 Farhat Cabezas MD Referring Family Medicine 01/08/22 Farhat Cabezas MD [address] [place] [address] Referring Family Medicine 07/26/24 documented as of this encounter
--- OUTSIDE RECORDS SUMMARY | 2024-08-21 15:41 | XMS_ITS | Encounter Summary ---
Demographics Address [address] [place] [address] Home Phone Mobile Phone Email Address Preferred Language ENG Marital Status Single Scientologist Affiliation Unknown Race White Ethnic Group Not or Lati no Author Organization [facility] Address [address] [place] [address] Care Team Providers Care Senior Design Engineer Name Role Phone Farhat Cabezas MD Primary Care Provider [phone] Farhat Cabezas MD Unavailable [phone] Faraht Cabezas MD Unavailable [phone] Source Comments In the event this information is protected by the Federal Confidentiality of Alcohol and Drug AbusePatient Records regulations: The Federal rules restrict any use of the information to criminally investigate or prosecute any alcohol or drug abuse patient.[facility] Encounter Details Date Type Department Care Team (Late st Contact Info) Description 04/21/2023 Patient Msg Endocrinology [address] [place] [address] [place] [address] [place] [address] Report Next Steps Social History [...] is lower risk 2 12/21/2022 Data from: https://www.neighborhoodatlas.medicine.[facility]/. Last address used for [...] Description 08/30/2024 9:30 AM EDT [facility] Endocrinology [address] [place] [address] Greg Nina APRN.DELICATESSEN MANAGER [address] [place] [address] diabetes follow up with me in 3 months virtually 11/20/2024 1:00 PM EDT [facility] Endocrinology [address] [place] [address] Valdez Suarez MD [address] [place] [address] [address] [place], [place] 7359135 follow up in 6 months documented as of this encounter Visit Diagnoses Not on filedocumented in this encounter Care Teams Senior Design Engineer Relationship Specialty Start Date End Date Farhat Cabezas MD PCP - General Family Medicine 01/13/11 Farhat Cabezas MD Referring Family Medicine 01/08/22 Farhat Cabezas MD [address] [place] [address] Referring Family Medicine 07/26/24 documented as of this encounter
--- OUTSIDE RECORDS SUMMARY | 2024-08-21 15:41 | XMS_ITS | Encounter Summary ---
Demographics Address [address] [place] [address] Home Phone Mobile Phone Email Address Preferred Language ENG Marital Status Single Sikhism Affiliation Unknown Race White Ethnic Group Not or Lati no Author Organization [facility] Address [address] [place] [address] Care Team Providers Care Journal Entry Audit Clerk Name Role Phone Farhat Cabezas MD Primary Care Provider [phone] Farhat Cabezas MD Unavailable [phone] Farhat Cabezas MD Unavailable [phone] Source Comments In the event this information is protected by the Federal Confidentiality of Alcohol and Drug AbusePatient Records regulations: The Federal rules restrict any use of the information to criminally investigate or prosecute any alcohol or drug abuse patient.[facility] Encounter Details Date Type Department Care Team (Late st Contact Info) Description 04/05/2023 Patient Msg Endocrinology [address] [place] [address] Provider, Ccf endocrine dietitian visit [...] is lower risk 2 12/21/2022 Data from: https://www.neighborhoodatlas.[facility]/. Last address used for calculation [...] Description 08/30/2024 9:30 AM EDT [facility] Endocrinology [address] [place] [address] Greg Nina APRN.CORROSION CONTROL TECHNICIAN [address] [place] [address] diabetes follow up with me in 3 months virtually 11/20/2024 1:00 PM EDT [facility] Endocrinology [address] [place] [address] Valdez Suarez MD [address] [place] [address] [address] [place], [place] 7[address]2035 follow up in 6 months documented as of this encounter Visit Diagnoses Not on filedocumented in this encounter Care Teams Journal Entry Audit Clerk Relationship Specialty Start Date End Date Farhat Cabezas MD PCP - General Family Medicine 01/13/11 Farhat Cabezas MD Referring Family Medicine 01/08/22 Farhat Cabezas MD [address] [place] [address] Referring Family Medicine 07/26/24 documented as of this encounter
--- OUTSIDE RECORDS SUMMARY | 2024-08-21 15:41 | XMS_ITS | Encounter Summary ---
Author Organization [facility] Address [address] [place] [address] Care Team Providers Care Binder Operator Name Role Phone Farhat Cabezas MD Primary Care Provider [phone] Farhat Cabezas MD Unavailable [phone] Farhat Cabezas MD Unavailable [phone] Source Comments In the event this [...] Msg CB/Gynecology [address] [place] [address] Provider, Ccf Reschedule appt. Social History [...] is lower risk 4 06/11/2022 Data from: https://www.neighborhoodatlas.[facility]/. Last address used for calculation [address] [facility] 06/11/2022 Comments No Sex and Gender [...] 12:43 PM Mona Duobse (Rn) (Hist), RN documented as of this [...] Contact Info) Description 08/30/2024 9:30 AM EDT [facility] Endocrinology [address] [place] [address] Greg Nina APRN.BAG SORTER [address] [place] [address] diabetes follow up with me in 3 months virtually 11/20/2024 1:00 PM EDT [facility] Endocrinology [address] [place] [address] Valdze Suarez MD [address] [place] [address] [address] [place], [place] 5881835 follow up in 6 months documented as of this encounter Visit Diagnoses Not on filedocumented in this encounter Care Teams Binder Operator Relationship Specialty Start Date End Date Farhat Cabezas MD PCP - General Family Medicine 01/13/11 Farhat Cabezas MD Referring Family Medicine 01/08/22 Farhat Cabezas MD [address] [place] [address] Referring Family Medicine 07/26/24 documented as of this encounter
--- OUTSIDE RECORDS SUMMARY | 2024-08-21 15:41 | XMS_ITS | Encounter Summary ---
Demographics Address [address] [place] [address] Home Phone Mobile Phone Email Address Preferred Language ENG Marital Status Single Restoration Affiliation Unknown Race White Ethnic Group Not or Lati no Author Organization [facility] Address [address] [place] [address] Care Team Providers Care Medical Biller Coder Name Role Phone Farhat Cabezas MD Primary Care Provider [phone] Farhat Cabezas MD Unavailable [phone] Farhat Cabezas MD Unavailable [phone] Source Comments In the event this information is protected by the Federal Confidentiality of Alcohol and Drug AbusePatient Records regulations: The Federal rules restrict any use of the information to criminally investigate or prosecute any alcohol or drug abuse patient.[facility] Encounter Details Date Type Department Care Team (Late st Contact Info) Description 04/16/2023 Patient Msg [facility] Physical Therapy [address] [place], [place] [phone] [place] [address] [place], [place] [phone] Appointment Request Social History Tobacco Use Types [...] risk 2 12/21/2022 Data from: https://www.neighborhoodatlas.medicine.[facility]/. Last address used for calculation [address] [...] Info) Description 08/30/2024 9:[address] [facility] Endocrinology [address] [place] [address] Greg Nina APRN.AUTOMATIC BEADING LATHE OPERATOR [address] [place], [place] [address] diabetes follow up with me in 3 months virtually 11/20/2024 1:[address] [facility] Endocrinology [address] [place] [address] Valdez Suarez MD [address] [place] [address] [place], [place] 9383335 follow up in 6 months documented as of this encounter Visit Diagnoses Not on filedocumented in this encounter Care Teams Medical Biller Coder Relationship Specialty Start Date End Date Farhat Cabezas MD PCP - General Family Medicine 01/13/11 Farhat Cabezas MD Referring Family Medicine 01/08/22 Farhat Cabezas MD [address] [place] [address] Referring Family Medicine 07/26/24 documented as of this encounter
--- OUTSIDE RECORDS SUMMARY | 2024-08-21 15:41 | XMS_ITS | Encounter Summary ---
Demographics Address [address] [place] [address] Home Phone Mobile Phone Email Address Preferred Language ENG Marital Status Single Anabaptism Affiliation Unknown Race White Ethnic Group Not or Lati no Author Organization [facility] Address [address] [place] [address] Care Team Providers Care Weigher And Charger Name Role Phone Farhat Cabezas MD Primary Care Provider [phone] Farhat Cabezas MD Unavailable [phone] Farhat Cabezas MD Unavailable [phone] Source Comments In the event this information is protected by the Federal Confidentiality of Alcohol and Drug AbusePatient Records regulations: The Federal rules restrict any use of the information to criminally investigate or prosecute any alcohol or drug abuse patient.[facility] Encounter Details Date Type Department Care Team (Late st Contact Info) Description 04/26/2023 GI Preprocedure Call Gastroenterology [address] [phone] Shania Sotomayor LPN Social History Tobacco Use [...] is lower risk 2 12/21/2022 Data from: https://www.neighborhoodatlas.[facility]/. Last address used for [...] AM EDT [facility] Endocrinology [address] [place] [address] Greg Nina APRN.WEIGHER AND CRUSHER [address] [place] [address] diabetes follow up with me in 3 months virtually 11/20/2024 1:00 PM EDT [facility] Endocrinology [address] [place] [address] Valdez Suarez MD [address] [place] [address] [place], [place] 7434935 follow up in 6 months documented as of this encounter Visit Diagnoses Not on filedocumented in this encounter Care Teams Weigher And Charger Relationship Specialty Start Date End Date Farhat Cabezas MD PCP - General Family Medicine 01/13/11 Farhat Cabezas MD Referring Family Medicine 01/08/22 Farhat Cabezas MD [address] [place] [address] Referring Family Medicine 07/26/24 documented as of this encounter
--- OUTSIDE RECORDS SUMMARY | 2024-08-21 15:41 | XMS_ITS | Encounter Summary ---
Demographics Address [address] [place] [address] Home Phone Mobile Phone Email Address faisal .[employer] Preferred Language ENG Marital Status Single Mormon Affiliation Unknown Race White Ethnic Group Not or Lati no Author Organization [facility] Address [address] [place] [address] Care Team Providers Care Home Theater Expert Name Role Phone Farhat Cabezas MD Primary Care Provider [phone] Farhat Cabezas MD Unavailable [phone] Farhat Cabezas MD Unavailable [phone] Source Comments In the event this information is protected by the Federal Confidentiality of Alcohol and Drug AbusePatient Records regulations: The Federal rules restrict any use of the information to criminally investigate or prosecute any alcohol or drug abuse patient.[facility] Encounter Details Date Type Department Care Team (Late st Contact Info) Description 03/08/2023 Patient Msg Endocrinology [address] [place] [address] [place] [address] [place], [place] [phone] Checking-in Social History Tobacco Use Types Packs/Day [...] is lower risk 2 12/21/2022 Data from: https://www.neighborhoodatlas.medicine.[facility]/. Last address used for calculation [...] Contact Info) Description 08/30/2024 9:30 AM EDT [facility] Endocrinology [address] [place] [address] Greg Nina APRN.COMMODITY MANAGEMENT SPECIALIST [address] [place] [address] diabetes follow up with me in 3 months virtually 11/20/2024 1:00 PM EDT [facility] Endocrinology [address] [place] [address] Valdez Suarez MD [address] [place] [address] [address] [place], [place] 6231135 follow up in 6 months documented as of this encounter Visit Diagnoses Not on filedocumented in this encounter Care Teams Home Theater Expert Relationship Specialty Start Date End Date Farhat Cabezas MD PCP - General Family Medicine 01/13/11 Farhat Cabezas MD Referring Family Medicine 01/08/22 Farhat Cabezas MD [address] [place] [address] Referring Family Medicine 07/26/24 documented as of this encounter
--- OUTSIDE RECORDS SUMMARY | 2024-08-21 15:41 | XMS_ITS | Encounter Summary ---
Demographics Address [address] [facility] [place] [address] Home Phone Mobile Phone Email Address Preferred Language ENG Marital Status Single Temple Affiliation Unknown Race White Ethnic Group Not or Lati no Author Organization [facility] Address [address] [place] [address] Care Team Providers Care Supervisor Gluing Name Role Phone Farhat Cabezas MD Primary Care Provider [phone] Farhat Cabezas MD Unavailable [phone] Farhat Cabezas MD Unavailable [phone] Source Comments In the event this information is protected by the Federal Confidentiality of Alcohol and Drug AbusePatient Records regulations: The Federal rules restrict any use of the information to criminally investigate or prosecute any alcohol or drug abuse patient.[facility] Encounter Details Date Type Department Care Team (Late st Contact Info) Description 04/14/2023 Get Medical Advice Endocrinology [address] [place] [address] Vinicius Márquez, LITIGATION SECRETARY.HOUSEKEEPER CLEANING COOKING [address] [address] [place] [address] PAIN POST EATING, VOMITTING Social History Tobacco [...] is lower risk 2 12/21/2022 Data from: https://www.neighborhoodatlas.medicine.[facility]/. Last address used for calculation [address] [...] Info) Description 08/30/2024 9:30 AM EDT [facility] Endocrinology [address] [place] [address] Greg Nina, MARITZA.HOUSEKEEPER CLEANING COOKING [address] [place] [address] diabetes follow up with me in 3 months virtually 11/20/2024 1:00 PM EDT [facility] Endocrinology [address] [place] [address] Valdez Suarez MD [address] [place] [address] [address] [place], [place] 0675035 follow up in 6 months documented as of this encounter Visit Diagnoses Not on filedocumented in this encounter Care Teams Supervisor Gluing Relationship Specialty Start Date End Date Farhat Cabezas MD PCP - General Family Medicine 01/13/11 Farhat Cabezas MD Referring Family Medicine 01/08/22 [place] [address] [place] [address] Referring Family Medicine 07/26/24 documented as of this encounter
--- OUTSIDE RECORDS SUMMARY | 2024-08-21 15:41 | XMS_ITS | Encounter Summary ---
Demographics Address [address] [place] [address] Home Phone Mobile Phone Email Address Preferred Language ENG Marital Status Single Confucianist Affiliation Unknown Race White Ethnic Group Not or Lati no Author Organization [facility] Address [address] [place] [address] Care Team Providers Care Ladle Pourer Name Role Phone Farhat Cabezas MD Primary Care Provider [phone] Farhat Cabezas MD Unavailable [phone] Farhat Cabezas MD Unavailable [phone] Source Comments In the event this information is protected by the Federal Confidentiality of Alcohol and Drug AbusePatient Records regulations: The Federal rules restrict any use of the information to criminally investigate or prosecute any alcohol or drug abuse patient.[facility] Encounter Details Date Type Department Care Team (Late st Contact Info) Description 11/04/2020 Patient [place] [facility] Wellness [address] [place] [phone] Mustapha Branch MD [address] [place] [address] Comment Social History Tobacco Use [...] N ot on file 01/16/2020 Data from: https://www.neighborhoodatlas.medicine.[facility]/. Last address used for calculation Not [...] [facility] Endocrinology [address] [place] [address] Greg Nina APRN.HUB BANDER [address] [place] [address] diabetes follow up with me in 3 months virtually 11/20/2024 1:00 PM EDT [facility] Endocrinology [address] [place] [address] Valdez Suarez MD [address] [place] [address] [address] [place], [place] [address] follow up in 6 months documented as of this encounter Visit Diagnoses Not on filedocumented in this encounter Care Teams Ladle Pourer Relationship Specialty Start Date End Date Farhat Cabezas MD PCP - General Family Medicine 01/13/11 Farhat Cabezas MD Referring Family Medicine 01/08/22 Farhat Cabezas MD [address] [place] [address] Referring Family Medicine 07/26/24 documented as of this encounter
--- OUTSIDE RECORDS SUMMARY | 2024-08-21 15:41 | XMS_ITS | Encounter Summary ---
Demographics Address [address] [place] [address] Home Phone Mobile Phone Email Address Preferred Language ENG Marital Status Single Anabaptism Affiliation Unknown Race White Ethnic Group Not or Lati no Author Organization [facility] Address [address] [place] [address] Care Team Providers Care Veneer Cutter Name Role Phone Farhat Cabezas MD Primary Care Provider [phone] Farhat aCbezas MD Unavailable [phone] Farhat Cabezas MD Unavailable [phone] Source Comments In the event this information is protected by the Federal Confidentiality of Alcohol and Drug AbusePatient Records regulations: The Federal rules restrict any use of the information to criminally investigate or prosecute any alcohol or drug abuse patient.[facility] Encounter Details Date Type Department Care Team (Late st Contact Info) Description 03/24/2023 Patient Msg Endocrinology [address] [place] [address] [place] [address] [place] [address] Resouces Social History Tobacco Use [...] lower risk 2 12/21/2022 Data from: https://www.neighborhoodatlas.medicine.[facility]/. Last address used for calculation [...] AM EDT [facility] Endocrinology [address] [place] [phone] Greg Nina APRN.SYSTEMS COORDINATOR [address] [place] [address] diabetes follow up with me in 3 months virtually 11/20/2024 1:00 PM EDT [facility] Endocrinology [address] [place] [address] Valdez Suarez MD [address] [place] [address] [address] [place], [place] [phone] follow up in 6 months documented as of this encounter Visit Diagnoses Not on filedocumented in this encounter Care Teams Veneer Cutter Relationship Specialty Start Date End Date Farhat Cabezas MD PCP - General Family Medicine 01/13/11 Farhat Cabezas MD Referring Family Medicine 01/08/22 Farhat Cabezas MD [address] [place] [address] Referring Family Medicine 07/26/24 documented as of this encounter
--- OUTSIDE RECORDS SUMMARY | 2024-08-21 15:42 | XMS_ITS | Encounter Summary ---
Author Organization [facility] Address [address] [place] [address] Care Team Providers Care Screw Machine Tool Setter Name Role Phone Farhat Cabezas MD Primary Care Provider [phone] Farhat Cabezas MD Unavailable [phone] Farhat Cabezas MD Unavailable [phone] Source Comments In the event this information is protected by the Federal Confidentiality of Alcohol and Drug AbusePatient Records regulations: The Federal rules restrict any use of the information to criminally investigate or prosecute any alcohol or drug abuse patient.[facility] Encounter Details Date Type Department Care Team (Late st Contact Info) Description 08/05/2019 Patient Msg Family Medicine [address] [place], [place] [phone] Provider, Ccf Appointment Needed! Social History Tobacco [...] 08/30/2024 9:30 AM EDT [facility] Endocrinology [address] [place] [address] Greg Nina APRN.SILVER RECOVERY OPERATOR [address] [place] [address] diabetes follow up with me in 3 months virtually 11/20/2024 1:00 PM EDT [facility] Endocrinology [address] [place] [address] Valdez Suarez MD [address] [place] [address] [address] [place], [place] 8127035 follow up in 6 months documented as of this encounter Visit Diagnoses Not on filedocumented in this encounter Care Teams Screw Machine Tool Setter Relationship Specialty Start Date End Date Farhat Cabezas MD PCP - General Family Medicine 01/13/11 Farhat Cabezas MD Referring Family Medicine 01/08/22 Farhat Cabezas MD [facility] [place] [address] Referring Family Medicine 07/26/24 documented as of this encounter
--- OUTSIDE RECORDS SUMMARY | 2024-08-21 15:42 | XMS_ITS | Encounter Summary ---
Demographics Address [address] [place] [address] Home Phone Mobile Phone Email Address Preferred Language ENG Marital Status Single Sabianism Affiliation Unknown Race White Ethnic Group Not or Lati no Author Organization [facility] Address [address] [place] [address] Care Team Providers Care Sales Route Driver Helper Name Role Phone Farhat Cabezas MD Primary Care Provider [phone] Farhat Cabezas MD Unavailable [phone] Farhat Cabezas MD Unavailable [phone] Source Comments In the event this information is protected by the Federal Confidentiality of Alcohol and Drug AbusePatient Records regulations: The Federal rules restrict any use of the information to criminally investigate or prosecute any alcohol or drug abuse patient.[facility] Encounter Details Date Type Department Care Team (Late st Contact Info) Description 08/12/2020 Get Medical Advice [facility] REJ [address] [place], [place] [phone] Rachel Yi MD [address] [place] [address] RE: Visit Follow Up Question [...] ot on file 01/16/2020 Data from: https://www.neighborhoodatlas.medicine.[facility]/. Last address used for calculation Not [...] 08/30/2024 9:30 AM EDT [facility] Endocrinology [address] [place] [address] Greg Nina APRN.HAND VIOLIN MAKER [address] [place], [place] [phone] diabetes follow up with me in 3 months virtually 11/20/2024 1:00 PM EDT [facility] Endocrinology [address] [place] [address] Valdez Suarez MD [address] [place] [address] [address] [place], [place] [phone] follow up in 6 months documented as of this encounter Visit Diagnoses Not on filedocumented in this encounter Care Teams Sales Route Driver Helper Relationship Specialty Start Date End Date Farhat Cabezas MD PCP - General Family Medicine 01/13/11 Farhat Cabezas MD Referring Family Medicine 01/08/22 Farhat Cabezas MD [address] [place] [address] Referring Family Medicine 07/26/24 documented as of this encounter
--- OUTSIDE RECORDS SUMMARY | 2024-08-21 15:42 | XMS_ITS | Encounter Summary ---
Demographics Address [address] [place] [address] Home Phone Mobile Phone Email Address Preferred Language ENG Marital Status Single Orthodoxy Affiliation Unknown Race White Ethnic Group Not or Lati no Author Organization [facility] Address [address] [place] [address] Care Team Providers Care Skilled Nursing Facilities Professional Name Role Phone Jacob Santillan MD Primary Care Provider [phone] Farhat Cabezas MD Primary Care Provider [phone] Farhat Cabezas MD Unavailable [phone] Farhat Cabezas MD Unavailable [phone] Source Comments In the event this information is protected by the Federal Confidentiality of Alcohol and Drug AbusePatient Records regulations: The Federal rules restrict any use of the information to criminally investigate or prosecute any alcohol or drug abuse patient.[facility] Reason for Visit * Reason Comments Outside Lab Results [facility] 05/09/08 Encounter Details Date Type Department Care Team (Late st Contact Info) Description 05/14/2008 Abstract Rheumatology [address] [place] [address] Zabrina Culver MD [address] [facility] [place] [place] [address] Outside Lab Results ([facility] 05/09/08) Social History Tobacco Use [...] 9:[address] [facility] Endocrinology [address] [place] [address] Greg Nina APRN.BANK OPERATIONS OFFICER [address] [place], [place] [address] diabetes follow up with me in 3 months virtually 11/20/2024 1:[address] [facility] Endocrinology [address] [place] [address] Valdez Suarez MD [address] [place] [address] [address] [place], [place] 48[address] follow up in 6 months documented as of this encounter Visit Diagnoses Not on filedocumented in this encounter Care Teams Skilled Nursing Facilities Professional Relationship Specialty Start Date End Date Jacob Santillan MD PCP - General 08/05/05 01/12/11 Farhat Cabezas MD PCP - General Family Medicine 01/13/11 Farhat Cabezas MD Referring Family Medicine 01/08/22 Farhat Cabezas MD [address] [place] [address] Referring Family Medicine 07/26/24 documented as of this encounter
--- OUTSIDE RECORDS SUMMARY | 2024-08-21 15:42 | XMS_ITS | Encounter Summary ---
Demographics Address [address] [place] [address] Home Phone Mobile Phone Email Address Preferred Language ENG Marital Status Single Sabianism Affiliation Unknown Race White Ethnic Group Not or Lati no Author Organization [facility] Address [address] [place] [address] Care Team Providers Care Candy Polisher Name Role Phone Farhat Cabezas MD Primary Care Provider [phone] Farhat Cabezas MD Unavailable [phone] Farhat Cabezas MD Unavailable [phone] Source Comments In the event this information is protected by the Federal Confidentiality of Alcohol and Drug AbusePatient Records regulations: The Federal rules restrict any use of the information to criminally investigate or prosecute any alcohol or drug abuse patient.[facility] Encounter Details Date Type Department Care Team (Late st Contact Info) Description 08/06/2020 Abstract General Surgery [address] [place] [address] Rachel Yi MD [address] [place] [address] Social History Tobacco Use Types [...] file 01/16/2020 Data from: https://www.neighborhoodatlas.medicine.[facility]/. Last address used for calculation Not on [...] Contact Info) Description 08/30/2024 9:30 AM EDT [facility] Endocrinology [address] [place] [address] Greg Nina APRN.JAVA ANALYST [address] [place] [address] diabetes follow up with me in 3 months virtually 11/20/2024 1:00 PM EDT [facility] Endocrinology [address] [place] [address] Valdez Suarez MD [address] [place] [address] [address] [place], [place] [address]403635 follow up in 6 months documented as of this encounter Visit Diagnoses Not on filedocumented in this encounter Care Teams Candy Polisher Relationship Specialty Start Date End Date Farhat Cabezas MD PCP - General Family Medicine 01/13/11 Farhat Cabezas MD Referring Family Medicine 01/08/22 Farhat Cabezas MD [address] [place] [address] Referring Family Medicine 07/26/24 documented as of this encounter
--- OUTSIDE RECORDS SUMMARY | 2024-08-21 15:42 | XMS_ITS | Encounter Summary ---
Author Organization [facility] Address [address] [place] [address] Care Team Providers Care Bottom Cager Name Role Phone Farhat Cabezas MD Primary Care Provider [phone] Farhat Cabezas MD Unavailable [phone] Farhat Cabezas MD Unavailable [phone] Source Comments In the event this information is protected by the Federal Confidentiality of Alcohol and Drug AbusePatient Records regulations: The Federal rules restrict any use of the information to criminally investigate or prosecute any alcohol or drug abuse patient.[facility] Encounter Details Date Type Department Care Team (Late st Contact Info) Description 06/14/2019 Patient Msg [facility] REJ [address] [place], [place] [phone] Rachel Yi MD [address] [place] [address] Bariatric Labs Social History Tobacco [...] [facility] Endocrinology [address] [place] [address] Greg Nina APRN.TOWER HOIST OPERATOR [address] [place] [address] diabetes follow up with me in 3 months virtually 11/20/2024 1:00 PM EDT [facility] Endocrinology [address] [place] [address] Valdez Suarez MD [address] [place] [address] [address] [place], [place] [phone] follow up in 6 months documented as of this encounter Visit Diagnoses Not on filedocumented in this encounter Care Teams Bottom Cager Relationship Specialty Start Date End Date Farhat Cabezas MD PCP - General Family Medicine 01/13/11 Farhat Cabezas MD Referring Family Medicine 01/08/22 [place] [address] [place] [address] Referring Family Medicine 07/26/24 documented as of this encounter
--- OUTSIDE RECORDS SUMMARY | 2024-08-21 15:42 | XMS_ITS | Encounter Summary ---
Demographics Address [address] [place] [address] Home Phone Mobile Phone Email Address Preferred Language ENG Marital Status Single Anglican Affiliation Unknown Race White Ethnic Group Not or Lati no Author Organization [facility] Address [address] [place] [address] Care Team Providers Care Executive Pilot Name Role Phone Farhat Cabezas MD Primary Care Provider [phone] Farhat Cabezas MD Unavailable [phone] Farhat Cabezas MD Unavailable [phone] Source Comments In the event this information is protected by the Federal Confidentiality of Alcohol and Drug AbusePatient Records regulations: The Federal rules restrict any use of the information to criminally investigate or prosecute any alcohol or drug abuse patient.[facility] Encounter Details Date Type Department Care Team (Late st Contact Info) Description 04/09/2020 Get Medical Advice General Surgery [address] [place] [address] Rachel Yi MD [address] [place] [address] RE: Upcoming Appointment Question Social [...] ot on file 01/16/2020 Data from: https://www.neighborhoodatlas.medicine.[facility]/. Last address used for calculation [...] Description 08/30/2024 9:30 AM EDT [facility] Endocrinology [address] [place] [address] Greg Nina, MARITZA.LABORATORY AIDE [address] [place] [address] diabetes follow up with me in 3 months virtually 11/20/2024 1:00 PM EDT [facility] Endocrinology [address] [place] [address] Valdez Suarez MD [address] [place] [address] [address] [place], [place] 7976835 follow up in 6 months documented as of this encounter Visit Diagnoses Not on filedocumented in this encounter Care Teams Executive Pilot Relationship Specialty Start Date End Date Farhat Cabezas MD PCP - General Family Medicine 01/13/11 Farhat Cabezas MD Referring Family Medicine 01/08/22 Farhat Cabezas MD [facility] [place] [address] Referring Family Medicine 07/26/24 documented as of this encounter
--- OUTSIDE RECORDS SUMMARY | 2024-08-21 15:42 | XMS_ITS | Encounter Summary ---
Author Organization [facility] Address [address] [place] [address] Care Team Providers Care Fruit Press Operator Name Role Phone Farhat Cabezas MD Primary Care Provider [phone] Farhat Cabezas MD Unavailable [phone] Farhat Cabezas MD Unavailable [phone] Source Comments In the event this [...] Info) Description 03/14/2020 Patient Msg Family Medicine [address] [place], [place] [phone] Provider, Ccf Appointment Request Social History Tobacco [...] N ot on file 01/16/2020 Data from: https://www.neighborhoodatlas.[facility]/. Last address used for calculation Not on [...] [facility] Endocrinology [address] [place] [address] Greg Nina APRN.AUTOMOTIVE HARDWARE ENGINEER [address] [place] [address] diabetes follow up with me in 3 months virtually 11/20/2024 1:00 PM EDT [facility] Endocrinology [address] [place] [address] Valdez Suarez MD [address] [place] [address] [address] [place], [place] 5235[address] follow up in 6 months documented as of this encounter Visit Diagnoses Not on filedocumented in this encounter Care Teams Fruit Press Operator Relationship Specialty Start Date End Date Farhat Cabezas MD PCP - General Family Medicine 01/13/11 Farhat Cabezas MD Referring Family Medicine 01/08/22 Farhat Cabezas MD [address] [place] [address] Referring Family Medicine 07/26/24 documented as of this encounter
--- OUTSIDE RECORDS SUMMARY | 2024-08-21 15:42 | XMS_ITS | Encounter Summary ---
Demographics Address [address] [facility] [place] [address] Home Phone Mobile Phone Email Address Preferred Language ENG Marital Status Single Buddhist Affiliation Unknown Race White Ethnic Group Not or Lati no Author Organization [facility] Address [address] [place] [address] Care Team Providers Care Fishing Hand Name Role Phone Farhat Cabezas MD Primary Care Provider [phone] Farhat Cabezas MD Unavailable [phone] Farhat Cabezas MD Unavailable Source Comments [...] Info) Description 12/12/2021 Get Medical Advice Neurology [address] [place] [address] Mahogany Reyes, LABOR EMPLOYMENT ASSOCIATE.INSTRUCTIONAL ASSISTANT [address] [place] [address] Refill 10mg Social History Tobacco [...] N ot on file 07/19/2021 Data from: https://www.neighborhoodatlas.medicine.[facility]/. Last address used for calculation [address] [...] Cerda RN - 12/12/2021 2:33 PM EDT [employer] message sent documented in this encounter Plan of Treatment Upcoming Encounters Date Type Department Care Team (Late st Contact Info) Description 08/30/2024 9:30 AM EDT [facility] Endocrinology [address] [place] [address] Greg Nina APRN.INSTRUCTIONAL ASSISTANT [address] [place] [address] diabetes follow up with me in 3 months virtually 11/20/2024 1:00 PM EDT [facility] Endocrinology [address] [place] [address] Valdez Suarez MD [address] [place] [address] [address] [place], [place] 8847135 follow up in 6 months documented as of this encounter Visit Diagnoses Not on filedocumented in this encounter Care Teams Fishing Hand Relationship Specialty Start Date End Date Farhat Cabezas MD PCP - General Family Medicine 01/13/11 Farhat Cabezas MD Referring Family Medicine 01/08/22 Farhat Cabezas MD [address] [place] [address] Referring Family Medicine 07/26/24 documented as of this encounter
--- OUTSIDE RECORDS SUMMARY | 2024-08-21 15:42 | XMS_ITS | Encounter Summary ---
Author Organization [facility] Address [address] [place] [address] Care Team Providers Care Rice Drier Operator Name Role Phone Farhat Cabezas MD Primary Care Provider [phone] Farhat Cabezas MD Unavailable [phone] Farhat Cabezas MD Unavailable [phone] Source Comments In the event this information is protected by the Federal Confidentiality of Alcohol and Drug AbusePatient Records regulations: The Federal rules restrict any use of the information to criminally investigate or prosecute any alcohol or drug abuse patient.[facility] Encounter Details Date Type Department Care Team (Late st Contact Info) Description 08/12/2020 Patient Msg [facility] REJ [address] [place], [place] [phone] Rachel Yi MD [address] [place] [address] Request an Appointment Social History [...] N ot on file 01/16/2020 Data from: https://www.neighborhoodatlas.medicine.[facility]/. Last address used [...] 9:30 AM EDT [facility] Endocrinology [address] [place] [address] Greg Nina, MARITZA.UNIX ARCHITECT [address] [place] [address] diabetes follow up with me in 3 months virtually 11/20/2024 1:00 PM EDT [facility] Endocrinology [address] [place] [address] Valdez Suarez MD [address] [place] [address] [address] [place], [place] [phone] follow up in 6 months documented as of this encounter Visit Diagnoses Not on filedocumented in this encounter Care Teams Rice Drier Operator Relationship Specialty Start Date End Date Farhat Cabezas MD PCP - General Family Medicine 01/13/11 Farhat Cabezas MD Referring Family Medicine 01/08/22 Farhat Cabezas MD [facility] [place] [address] Referring Family Medicine 07/26/24 documented as of this encounter
--- OUTSIDE RECORDS SUMMARY | 2024-08-21 15:42 | XMS_ITS | Encounter Summary ---
Demographics Address [address] [place] [address] Home Phone Mobile Phone Email Address Preferred Language ENG Marital Status Single Scientologist Affiliation Unknown Race White Ethnic Group Not or Lati no Author Organization [facility] Address [address] [place] [address] Care Team Providers Care Staple Fiber Washer Name Role Phone Farhat Cabezas MD Primary Care Provider [phone] Farhat Cabezas MD Unavailable [phone] Farhat Cabezas MD Unavailable [phone] Source Comments In the event this information is protected by the Federal Confidentiality of Alcohol and Drug AbusePatient Records regulations: The Federal rules restrict any use of the information to criminally investigate or prosecute any alcohol or drug abuse patient.[facility] Encounter Details Date Type Department Care Team (Late st Contact Info) Description 10/05/2019 Get Medical Advice [facility] REJ [address] [place], [place] [phone] Rachel Yi MD [address] [place] [address] RE: Visit Follow Up Question [...] Info) Description 08/30/2024 9:30 AM EDT [facility] Endocrinology [address] [place] [address] Greg Nina APRN.WORK ORDER SORTING CLERK [address] [place] [address] diabetes follow up with me in 3 months virtually 11/20/2024 1:00 PM EDT [facility] Endocrinology [address] [place] [address] Valdez Suarez MD [address] [place] [address] [address] [place], [place] [phone] follow up in 6 months documented as of this encounter Visit Diagnoses Not on filedocumented in this encounter Care Teams Staple Fiber Washer Relationship Specialty Start Date End Date Farhat Cabezas MD PCP - General Family Medicine 01/13/11 Farhat Cabezas MD Referring Family Medicine 01/08/22 [place] [address] [place] [address] Referring Family Medicine 07/26/24 documented as of this encounter
--- OUTSIDE RECORDS SUMMARY | 2024-08-21 15:42 | XMS_ITS | Encounter Summary ---
Author Organization [facility] Address [address] [place] [place] [address] Care Team Providers Care Thermoforming Operator Name Role Phone Farhat Cabezas MD Primary Care Provider [phone] Farhat Cabezas MD Unavailable [phone] Farhat Cabezas MD Unavailable [phone] Source Comments In the event this information is protected by the Federal Confidentiality of Alcohol and Drug AbusePatient Records regulations: The Federal rules restrict any use of the information to criminally investigate or prosecute any alcohol or drug abuse patient.[facility] Encounter Details Date Type Department Care Team (Late st Contact Info) Description 05/09/2019 Patient Msg Family Medicine [address] [place], [place] [phone] Provider, Ccpeiro *Appointment Changes* Social History Tobacco Use Types [...] 08/30/2024 9:30 AM EDT [facility] Endocrinology [address] [place] [phone] Greg Nina APRN.TOPOGRAPHICAL FIELD ASSISTANT [address] [place] [address] diabetes follow up with me in 3 months virtually 11/20/2024 1:00 PM EDT [facility] Endocrinology [address] [place] [address] Valdez Suarez MD [address] [place] [address] [address] [place], [place] 6129335 follow up in 6 months documented as of this encounter Visit Diagnoses Not on filedocumented in this encounter Care Teams Thermoforming Operator Relationship Specialty Start Date End Date Farhat Cabezas MD PCP - General Family Medicine 01/13/11 Farhat Cabezas MD Referring Family Medicine 01/08/22 [place] [address] [place] [address] Referring Family Medicine 07/26/24 documented as of this encounter
--- OUTSIDE RECORDS SUMMARY | 2024-08-21 15:42 | XMS_ITS | Encounter Summary ---
Author Organization Address [address] [place] [address] Care Team Providers Care Administrative Program Specialist Name Role Phone Farhat Cabezas MD Primary Care Provider [phone] Farhat Cabezas MD Unavailable [phone] Farhat Cabezas MD Unavailable [phone] Source Comments In the event this information is protected by the Federal Confidentiality of Alcohol and Drug AbusePatient Records regulations: The Federal rules restrict any use of the information to criminally investigate or prosecute any alcohol or drug abuse patient. Encounter Details Date Type Department Care Team (Late st Contact Info) Description 09/20/2019 [facility] REJ [address] [place] [address] Rachel Yi MD [address] [place] [address] Social History Tobacco Use Types [...] Info) Description 08/30/2024 9:30 AM EDT [facility] Endocrinology [address] [place] [address] Greg Nina APRN.GENERATOR MECHANIC [address] [place] [address] diabetes follow up with me in 3 months virtually 11/20/2024 1:00 PM EDT [facility] Endocrinology [address] [place] [address] Valdez Suarez MD [address] [facility] [address] [place], [place] 0137035 follow up in 6 months documented as of this encounter Visit Diagnoses Not on filedocumented in this encounter Care Teams Administrative Program Specialist Relationship Specialty Start Date End Date Farhat Cabezas MD PCP - General Family Medicine 01/13/11 Farhat Cabezas MD Referring Family Medicine 01/08/22 Farhat Cabezas MD [address] [place] [address] Referring Family Medicine 07/26/24 documented as of this encounter
--- OUTSIDE RECORDS SUMMARY | 2024-08-21 15:42 | XMS_ITS | Encounter Summary ---
Demographics Address [address] [place] [address] Home Phone Mobile Phone Email Address Preferred Language ENG Marital Status Single Nondenominational Affiliation Unknown Race White Ethnic Group Not or Lati no Author Organization [facility] Address [address] [place] [address] Care Team Providers Care Flame Planer Name Role Phone Farhat Cabezas MD Primary Care Provider [phone] Farhat Cabezas MD Unavailable [phone] Farhat Cabezas MD Unavailable [phone] Source Comments In the event this information is protected by the Federal Confidentiality of Alcohol and Drug AbusePatient Records regulations: The Federal rules restrict any use of the information to criminally investigate or prosecute any alcohol or drug abuse patient.[facility] Encounter Details Date Type Department Care Team (Late st Contact Info) Description 03/31/2022 Patient Msg Neurology [address] [place] [phone] Provider, Ccf refills Social History Tobacco Use [...] N ot on file 02/25/2022 Data from: https://www.neighborhoodatlas.[facility]/. Last address used for calculation [address] [facility] 02/25/2022 Comments No Sex and Gender [...] 08/30/2024 9:30 AM EDT [facility] Endocrinology [address] [place] [address] Greg Nina APRN.CTE TEACHER [address] [place] [address] diabetes follow up with me in 3 months virtually 11/20/2024 1:00 PM EDT [facility] Endocrinology [address] [place] [address] Valdez Suarez MD [address] [place] [address] [address] [place], [place] [phone] follow up in 6 months documented as of this encounter Visit Diagnoses Not on filedocumented in this encounter Care Teams Flame Planer Relationship Specialty Start Date End Date Farhat Cabezas MD PCP - General Family Medicine 01/13/11 Farhat Cabezas MD Referring Family Medicine 01/08/22 Farhat Cabezas MD [address] [place] [address] Referring Family Medicine 07/26/24 documented as of this encounter
--- OUTSIDE RECORDS SUMMARY | 2024-08-21 15:42 | XMS_ITS | Encounter Summary ---
Author Organization [facility] Address [address] [place] [address] Care Team Providers Care Stream Control Officer Name Role Phone Jacob Santillan MD Primary Care Provider [phone] Farhat Cabezas MD Primary Care Provider [phone] Farhat Cabezas MD Unavailable [phone] Farhat Cabezas MD Unavailable [phone] Source Comments In the event this information is protected by the Federal Confidentiality of Alcohol and Drug AbusePatient Records regulations: The Federal rules restrict any use of the information to criminally investigate or prosecute any alcohol or drug abuse patient.[facility] Encounter Details Date Type Department Care Team ([facility] Contact Info) Description 09/20/2008 Patient Msg Medical Records [address] [place] [address] Provider, Ccf labwork Social History Tobacco Use [...] Upcoming Encounters Date Type Department Care Team ([facility] Contact Info) Description 08/30/2024 9:30 AM EDT [facility] Endocrinology [address] [place] [phone] Greg Nina APRN.BRYOLOGIST [address] [place] [address] diabetes follow up with me in 3 months virtually 11/20/2024 1:00 PM EDT [facility] Endocrinology [address] [place] [address] Valdez Suarez MD [address] [place] [address] [place], [place] 2224235 follow up in 6 months documented as of this encounter Visit Diagnoses Not on filedocumented in this encounter Care Teams Stream Control Officer Relationship Specialty Start Date End Date Jacob Santillan MD PCP - General 08/05/05 01/12/11 Farhat Cabezas MD PCP - General Family Medicine 01/13/11 Farhat Cabezas MD Referring Family Medicine 01/08/22 Farhat Cabezas MD [address] [place] [address] Referring Family Medicine 07/26/24 documented as of this encounter
--- OUTSIDE RECORDS SUMMARY | 2024-08-21 15:42 | XMS_ITS | Encounter Summary ---
Author Organization [facility] Address [address] [place] [address] Care Team Providers Care Cna Ltc Name Role Phone Farhat Cabezas MD Primary Care Provider [phone] Farhat Cabezas MD Unavailable [phone] Farhat Cabezas MD Unavailable [phone] Source Comments In the event this information is protected by the Federal Confidentiality of Alcohol and Drug AbusePatient Records regulations: The Federal rules restrict any use of the information to criminally investigate or prosecute any alcohol or drug abuse patient.[facility] Encounter Details Date Type Department Care Team (Late st Contact Info) Description 10/05/2019 Patient Msg Family Medicine [address] [place], [place] [phone] Provider, Ccf Appointments Requested Social History Tobacco [...] Description 08/30/2024 9:30 AM EDT [facility] Endocrinology [address] [place] [address] Greg Nina APRN.MACHINE JOINER CEMENTER [address] [place] [address] diabetes follow up with me in 3 months virtually 11/20/2024 1:00 PM EDT [facility] Endocrinology [address] [place] [address] Valdez Suarez MD [address] [place] [address] [address] [place], [place] [phone] follow up in 6 months documented as of this encounter Visit Diagnoses Not on filedocumented in this encounter Care Teams Cna Ltc Relationship Specialty Start Date End Date Farhat Cabezas MD PCP - General Family Medicine 01/13/11 Farhat Cabezas MD Referring Family Medicine 01/08/22 Farhat Cabezas MD [address] [place] [address] Referring Family Medicine 07/26/24 documented as of this encounter
--- OUTSIDE RECORDS SUMMARY | 2024-08-21 15:42 | XMS_ITS | Encounter Summary ---
Author Organization [facility] Address [facility] [place] [address] Care Team Providers Care Bank Vault Custodian Name Role Phone Jacob Santillan MD Primary Care Provider [phone] Farhat Cabezas MD Primary Care Provider [phone] Farhat Cabezas MD Unavailable [phone] Farhat Cabezas MD Unavailable [phone] Source Comments In the event this information is protected by the Federal Confidentiality of Alcohol and Drug AbusePatient Records regulations: The Federal rules restrict any use of the information to criminally investigate or prosecute any alcohol or drug abuse patient.[facility] Encounter Details Date Type Department Care Team (Late st Contact Info) Description 09/20/2008 Patient Msg Medical Records [address] [place] [address] Provider, Ccf RE: Findings/questions/GI refferal Social History [...] Contact Info) Description 08/30/2024 9:30 AM EDT [facility] Endocrinology [address] [place] [address] Greg Nina APRN.CULINARY MANAGER [address] [place] [address] diabetes follow up with me in 3 months virtually 11/20/2024 1:00 PM EDT [facility] Endocrinology [address] [place] [address] Valdez Suarez MD [address] [place] [address] [address] [place], [place] 70439[address] follow up in 6 months documented as of this encounter Visit Diagnoses Not on filedocumented in this encounter Care Teams Bank Vault Custodian Relationship Specialty Start Date End Date Jacob Santillan MD PCP - General 08/05/05 01/12/11 Farhat Cabezas MD PCP - General Family Medicine 01/13/11 Farhat Cabezas MD Referring Family Medicine 01/08/22 Farhat Cabezas MD [address] [place] [address] Referring Family Medicine 07/26/24 documented as of this encounter
--- OUTSIDE RECORDS SUMMARY | 2024-08-21 15:42 | XMS_ITS | Encounter Summary ---
Demographics Address [address] [facility] [place] [address] Home Phone Mobile Phone Email Address Preferred Language ENG Marital Status Single Restoration Affiliation Unknown Race White Ethnic Group Not or Lati no Author Organization [facility] Address [address] [place] [address] Care Team Providers Care Tube Molder Fiberglass Name Role Phone Farhat Cabezas MD Primary Care Provider [phone] Farhat Cabezas MD Unavailable [phone] Farhat Cabezas MD Unavailable Source Comments [...] Info) Description 10/27/2021 Get Medical Advice Neurology [address]10 [place] [address] Mahogany Reyes, MOTION AND TIME STUDY TEACHER.CUSTOM MARINE CANVAS FABRICATOR 9500 [place] [address] Med refill Social History Tobacco [...] Data from: https://www.neighborhoodatlas.medicine.[facility]/. Last address used for calculation [...] Cerda RN - 11/19/2021 8:06 AM EDT [facility] [employer] message sent * Telephone Encounter - Mahogany Reyes APRN.CUSTOM MARINE CANVAS FABRICATOR - 11/10/2021 11:59 AM EDT Order completed. PDMP website checked and validated. All prescriptions have been APPROPRIATELY filled. No suspiciousactivity was identified. 11/10/2021 by Mahogany Reyes APRN.CUSTOM MARINE CANVAS FABRICATOR * Telephone Encounter - Latasha Cerda RN - 11/10/2021 11:49 AM EDT Yosvany 03/20/21 w/ MOTION AND TIME STUDY TEACHER Fov 12/17/21 w/ MOTION AND TIME STUDY TEACHER My Chart message sent to patient to [...] BiPAP 12/8 cm H20. - Follow-up with MOTION AND TIME STUDY TEACHER for in person visit as this is a requirement when receiving controlled medications. Mahogany Reyes APRN.CUSTOM MARINE CANVAS FABRICATOR * Telephone Encounter - Latasha Cerda RN [...] AM EDT [facility] Endocrinology [address] [place] [address] Greg Nina APRN.CUSTOM MARINE CANVAS FABRICATOR [address] [place] [address] diabetes follow up with me in 3 months virtually 11/20/2024 1:00 PM EDT [facility] Endocrinology [address] [place] [address] Valdez Suarez MD [address] [place] [address] [place], [place] 1674[address] follow up in 6 months documented as of this encounter Visit Diagnoses Diagnosis Other insomnia documented in this encounter Care Teams Tube Molder Fiberglass Relationship Specialty Start Date End Date Farhat Cabezas MD PCP - General Family Medicine 01/13/11 Farhat Cabezas MD Referring Family Medicine 01/08/22 Farhat Cabezas MD [address] [place] [address] Referring Family Medicine 07/26/24 documented as of this encounter
--- OUTSIDE RECORDS SUMMARY | 2024-08-21 15:42 | XMS_ITS | Encounter Summary ---
Demographics Address [address] [address] Home Phone Mobile Phone Email Address Preferred Language ENG Marital Status Single Jewish Affiliation Unknown Race White Ethnic Group Not or Lati no Author Organization [facility] Address [address] [place] [address] Care Team Providers Care Journeyman Patternmaker Name Role Phone Farhat Cabezas MD Primary Care Provider [phone] Farhat Cabezas MD Unavailable [phone] Farhat Cabezas MD Unavailable [phone] Source Comments In the event this information is protected by the Federal Confidentiality of Alcohol and Drug AbusePatient Records regulations: The Federal rules restrict any use of the information to criminally investigate or prosecute any alcohol or drug abuse patient.[facility] Encounter Details Date Type Department Care Team (Late st Contact Info) Description 04/18/2020 Get Medical Advice [facility] REJ [address] [place], [place] [phone] Rachel Yi MD [address]509 [place] [address] RE: Test Result Question Social [...] N ot on file 01/16/2020 Data from: https://www.neighborhoodatlas.medicine.[facility]/. Last address used for calculation Not [...] 08/30/2024 9:30 AM EDT [facility] Endocrinology [address] [place] [address] Greg Nina APRN.FISHERIES TECHNICIAN [address] [place], [place] 2404439 diabetes follow up with me in 3 months virtually 11/20/2024 1:00 PM EDT [facility] Endocrinology [address] [place] [address] Valdez Suarez MD [address] [place] [address] [address] [place], [place] [phone] follow up in 6 months documented as of this encounter Visit Diagnoses Not on filedocumented in this encounter Care Teams Journeyman Patternmaker Relationship Specialty Start Date End Date Farhat Cabezas MD PCP - General Family Medicine 01/13/11 Farhat Cabezas MD Referring Family Medicine 01/08/22 Farhat Cabezas MD [address] [place] [address] Referring Family Medicine 07/26/24 documented as of this encounter
--- OUTSIDE RECORDS SUMMARY | 2024-08-21 15:42 | XMS_ITS | Patient Health Record ---
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 Name Role Phone DAVEY CABEZAS MD Primary Care Provider Davey Cabezas Unavailable [phone] Adrienne Corbett Unavailable [phone] Allergies Allergen (clinical drug ingredient) Drug/Non Drug Allergy documented on EMR Reaction Allergy Type Onset Date Status metformin metFORMIN HCl stomach upset Drug Allergy Active ibuprofen Ibuprofen stomach upset Drug Allergy Act libertad Results Component Value Reference Range Notes FERRITIN Reviewed date:07/23/2024 12:49:20 PM Interpretation: Performing Lab: Notes/Report: [facility] , Ferritin 18.0 8.0-252.0 ng/mL Performing Lab: see note ML - [facility] LB CBC AUTO DIFF Reviewed date:04/05/2024 12:43:55 PM Interpretation: Performing Lab: Notes/Report: [facility] , White Blood Count 8.5 4.0-11.0 [...] 3/uL Performing Lab: see note ML - [facility] LB RAFAELA by IFA Reviewed date:07/25/2024 04:47:33 PM Interpretation: Performing Lab: Notes/Report: [facility] , Antinuclear Antibodies, IFA Negative . Negative <1:80 Borderline 1:80 Positive >1:80 ICAP nomenclature: AC-0 For more information about Hep-2 cell patterns use ANApatterns.org, the official website for the International Consensus on Antinuclear Antibody (RAFAELA) Patterns (ICAP). Performed at: [facility] [address] [id number] Product Support Consultant: Moi Osborne PhD, Phone: [phone] Performing Lab: see note - [facility] LB CBC AUTO DIFF Reviewed date:07/23/2024 12:49:20 PM Interpretation: Performing Lab: Notes/Report: [facility] , White Blood Count 7.7 4.0-11.0 10 [...] Performing Lab: see note ML - [facility] LB CRP Reviewed date:07/23/2024 12:49:20 PM Interpretation: Performing Lab: Notes/Report: [facility] , C Reactive Protein 2.23 <=0.50 mg/dL Performing Lab: see note ML - [facility] LB FREE T3 Reviewed date:07/23/2024 12:49:20 PM Interpretation: Performing Lab: Notes/Report: [facility] , Free T3 2.09 2.18-3.98 pg/mL Performing Lab: see note ML - [facility] LB PROF 14(COMP METB) Reviewed date:07/23/2024 12:49:20 PM Interpretation: Performing Lab: Notes/Report: [facility] , Sodium 138 136-145 mmol/L Potassium 3.5 [...] 0.8 Performing Lab: see note ML - [facility] RHEUMATOID FACTOR Reviewed date:07/25/2024 04:47:33 PM Interpretation: Performing Lab: Notes/Report: [facility] , Rheumatoid Factor (RF) <10.0 <14.0 IU/mL Performing Lab: see note - [facility] LB T4 Reviewed date:07/23/2024 12:49:20 PM Interpretation: Performing Lab: Notes/Report: [facility] , T4 Thyroxine 5.40 4.80-13.90 ug/dL Performing Lab: see note ML - [facility] LB TSH Reviewed date:07/23/2024 12:49:20 PM Interpretation: Performing Lab: Notes/Report: [facility] , Thyroid Stimulating Hormone 4.618 0.358-3.740 uIU/mL Performing Lab: see note - [facility] URIC ACID SERUM Reviewed date:07/23/2024 12:49:20 PM Interpretation: Performing Lab: Notes/Report: [facility] , Uric Acid 5.8 2.6-6.0 mg/dL Performing Lab: see note ML - [facility] LB Antistreptolysin O Ab Reviewed date:07/25/2024 04:47:33 PM Interpretation: Performing Lab: Notes/Report: [facility] , Antistreptolysin O Ab 104.5 0.0-200.0 IU/mL Performed at: [address] [id number] Product Support Consultant: Moi Osborne PhD, Phone: [phone] Performing Lab: see note - [facility] LB Vitamin D, 25-Hydroxy Reviewed date:07/25/2024 04:47:33 PM Interpretation: Performing Lab: Notes/Report: [facility] , Vitamin D, 25-Hydroxy 26.6 30.0-100.0 ng/mL Vitamin D deficiency has been defined by the Cash of Medicine and an Endocrine Society practice guideline as a level of serum 25-OH vitamin D less than 20 ng/mL (1,2). The Endocrine Society went on to further define vitamin D insufficiency as a level between 21 and 29 ng/mL (2). 1. IOM (Cash of Medicine). 2010. Dietary reference intakes for calcium and D. [place]: The National Academies Press. 2. Joseph MF, [place], Tequila HO, et al. Evaluation, treatment, and prevention of vitamin D deficiency: an Endocrine Society clinical practice guideline. JCEM. 2010; 96(7):1911-30. Performed at: - [address] [id number] Product Support Consultant: Moi Osborne PhD, Phone: [phone] Performing Lab: see note LC - [facility] LB Vitamin B12 Reviewed date:07/23/2024 12:49:20 PM Interpretation: Performing Lab: Notes/Report: [facility] , Vitamin B12 835 117-0163 pg/mL Performed at: - [facility] [address] [id number] Product Support Consultant: Moi Osborne PhD, Phone: [phone] Performing Lab: see note LC - [facility] LB XR chest 2V Reviewed date:07/23/2024 12:49:20 PM Interpretation: Performing Lab: Notes/Report: Source Facility: [place] [address] [place] [address] XRay Report Signed Patient: ESME REYES MR#: [id number] : 1975 Acct:[id number] Age/Sex: 49 / F ADM Date: 07/20/24 Loc: LAB Attending Dr: Maribel Cabezas M.D. Ordering Physician: Maribel Cabezas M.D. Date of Service: 07/20/24 Procedure(s): XR chest 2V Accession Number(s): [id number] cc: Maribel Cabezas M.D. [address] [address] Patient Name: ESME REYES MRN: [id number] date: 1975 Sex: F Assigned Patient Location: LAB Current Patient Location: LAB Accession/Order Number: [id number] Exam Date: 07/20/2024 17:55 Report Date: 07/20/2024 17:55 At the request of: MARIBEL CABEZAS MD Procedure: XR chest 2V Plain film [...] Diego M.D. 07/20/2024 5:55 PM Dictation Location: [place] [address] Electronically authenticated by: [id number] Y Date: 07/20/2024 17:55 Dictated By: Roberto Diego D.O. 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 Ordering Physician: Maribel Cabezas M.D. Date of Service: 07/20/24 Procedure(s): XR chest 2V Accession Number(s): [id number] cc: Maribel Cabezas M.D. [address] [address] Patient Name: ESME REYES MRN: [id number] date: 1975 Sex: F Assigned Patient Location: LAB Current Patient Loca tion: LAB Accession/Order Numb er: [id number] Exam Date: 07/20/2024 17:55 Report Date: 07/20/2024 17:55 At the request of: MARIBEL CABEZAS MD Procedure: XR chest 2V Plain film chest 2 view HISTORY: Cough and shortness of breath COMPARISON: 09/16/2020 FINDINGS: SUPPORT DEVICES: None POSTSURGICAL CHANGES : None HEART: Within normal limits PULMONARY CARMELITA: With in normal limits MEDIASTINUM: Unremarkable LUNGS AND PLEURA: No acute lung process, pleural effusion or pneumothorax identified. BONY STRUCTURES: Intact ADDITIONAL FINDINGS None X R/XR chest 2V IMPRESSION: No acute process. Impression dictated by: Roberto Diego M.D. 07/20/2024 5:55 PM Dictation Location: [place] [address] Electronically authenticated by: [id number] Y Date: 07/20/2024 17:55 Dictated By: Flo Diego D.O. 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5-60.0 % Monocytes Percent Auto 6.9 1.7-12.0 % Eosinophils Percent Auto 1.9 0.9-7.0 % Basophils Percent Auto 0.5 0.2-2.0 % Immature Granulocytes Pct Auto 0.8 0.0-0.5 % Neutrophils Absolute Auto 7.6 1.4-6.5 10 3/uL Lymphocytes Absolute Auto 1.8 1.2-3.8 10 3/uL Monocytes Absolute Auto 0.7 0.3-0.8 10 3/uL Eosinophils Absolute Auto 0.2 0.0-0.7 10 3/uL Basophils Absolute Auto 0.1 0.0-0.1 10 3/uL Immature Granulocytes Abs Auto 0.08 0.00-0.03 10 3/uL Performing Lab: see note ML - [facility] LB PROF CHEM 8 (BAS METB) Reviewed date:08/17/2024 07:11:32 PM Interpretation: Performing Lab: Notes/Report: [facility] , Sodium 142 136-145 mmol/L Potassium 3.5 3.5-5.1 mmol/L Chloride 104 98-107 mmol/L Carbon Dioxide 34.1 21.0-32.0 mmol/L Anion Gap 7.4 Glucose 137 74-106 mg/dL Blood Urea Nitrogen 10.0 7.0-18.0 mg/dL Creatinine 1.21 0.55-1.02 mg/dL Estimated GFR ( Era 57 >=60 mL/min/1.73m 2 Estimated GFR (Non- Francia 47 >=60 mL/min/1.73m 2 BUN Creatinine Ratio 8.3 Calcium 9.0 8.5-10.1 mg/dL Performing Lab: see note - [facility] LB UA RANDOM W or MICROSCOPIC Reviewed date:08/17/2024 07:11:32 PM Interpretation: Performing Lab: Notes/Report: [facility] , Color Urine YELLOW YELLOW Clarity Urine CLEAR CLEAR Specific Mcneil Urine 1.025 1.005-1.025 pH Urine 6.0 5.0-9.0 Protein Urine 30 NEG/TRACE mg/dL Glucose Urine UA NEGATIVE NEGATIVE mg/dL Bilirubin Urine SMALL NEGATIVE Ketones Urine TRACE NEGATIVE mg/dL Blood Urine NEGATIVE NEGATIVE Nitrite Urine NEGATIVE NEGATIVE Urobilinogen Urine 1.0 0.2-1.0 EU/dL Leukocyte Esterase Urine NEGATIVE NEGATIVE WBC Urine 2-5 NONE SEEN #/HPF RBC Urine 2-5 0-2 #/HPF Bacteria Urine SMALL NONE SEEN #/HPF Mucus Urine MODERATE NONE SEEN Squamous Epithelial Cell Urine MODERATE NONE/RARE #/LPF Crystals Seen? Seen None Seen #/HPF Calcium Oxalate Crystals Urine FEW Cast Seen? SEEN NONE SEEN #/LPF Hyaline Casts Urine RARE Urine Culture Indicated YES[place] [place] Performing Lab: see note ML - [facility] LB ECG 12 lead Reviewed date:08/17/2024 07:11:32 PM Interpretation: Performing Lab: Notes/Report: Source Facility: [place] [address] Electrocardiograph Report Draft Patient: ESME REYES MR#: [id number] : 1975 Acct:[id number] Age/Sex: 49 / F ADM Date: 08/17/24 Loc: ER Attending Dr: Ordering Physician: Baylee Gallardo M.D. 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 Date of Service: 08/17/24 Procedure(s): XR chest 1V Accession Number(s): [id number] cc: Maribel Cabezas M.D.; Baylee Gallardo M.D. [place] [address] Patient Name: ESME REYES MRN: [id number] date: 1975 Sex: F Assigned Patient Location: ER Current Patient Location: ER Accession/Order Number: [id number] Exam Date: 08/17/2024 14:34 Report Date: 08/17/2024 14:35 At the request of: BAYLEE GALLARDO MD Procedure: XR chest 1V XR chest 1V 08/17/2024 2:21 PM SIGNS AND SYMPTOMS: Weakness, multiple falls PROTOCOL: Frontal radiograph of the chest COMPARISON: 07/20/2024 FINDINGS: The trachea is midline. The heart and mediastinal structures are within normal limits. The lung parenchyma is clear. The bony thorax is intact. XR/XR chest 1V IMPRESSION: No acute cardiopulmonary pathology. Impression dictated by: Saravanan Jefferson M.D. 08/17/2024 2:35 PM Dictation Location: [place] [address] Electronically authenticated by: [id number] Y Date: 08/17/2024 14:35 Dictated By: Saravanan Jefferson M.D. 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 Date of Service: 08/17/24 Procedure(s): XR chest 1V Accession Number(s): [id number] cc: Maribel Cabezas M.D. ; Baylee Gallardo M.D. [place] [address] Patient Name: ESME REYES MRN: [id number] date: 1975 Sex: F Assigned Patient Location: ER Current Patient Loca tion: ER Accession/Order Numb er: [id number] Exam Date: 08/17/2024 14:34 Report Date: 08/17/2024 14:35 At the request of: BAYLEE GALLARDO MD Procedure: XR chest 1V XR chest 1V 2:21 PM SIGNS AND SYMPTOMS: Weakness, multiple falls PROTOCOL: Frontal radiograph of the chest COMPARISON: 07/20/2024 FINDINGS: The trachea is midli ne. The heart and mediastinal structures are within normal limits. The l eun parenchyma is clear. The bony thorax is intact. X R/XR chest 1V IMPRESSION: No acute cardiopulmo nary pathology. Impression dictated by: Saravanan Jefferson M.D. 08/17/2024 2:35 PM Dictation Location: [place] [address] Electronically authenticated by: [id number] Y Date: 08/17/2024 14:35 Dictated By: Saravanan Jefferson M.D. 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 Reviewed date:04/05/2024 12:43:55 PM Interpretation: Performing Lab: Notes/Report: [facility] , Color Urine LT. YELLOW YELLOW Clarity Urine CLEAR CLEAR Specific Mcneil Urine 1.015 1.005-1.025 pH Urine 6.0 5.0-9.0 Protein Urine NEGATIVE NEG/TRACE mg/dL Glucose Urine UA NEGATIVE NEGATIVE mg/dL Bilirubin Urine NEGATIVE NEGATIVE Ketones Urine NEGATIVE NEGATIVE mg/dL Blood Urine NEGATIVE NEGATIVE Nitrite Urine NEGATIVE NEGATIVE Urobilinogen Urine 1.0 0.2-1.0 EU/dL Leukocyte Esterase Urine NEGATIVE NEGATIVE Urine Microscopic Indicated NO Performing Lab: see note ML - [facility] LB PROF 14(COMP METB) Reviewed date:04/05/2024 12:43:55 PM Interpretation: Performing Lab: Notes/Report: [facility] , Sodium 139 136-145 mmol/L Potassium [...] 0.9 Performing Lab: see note ML - [facility] LB Reason For Referral Diagnosis 1 Fracture of metatars al bone (S92.309A) Referral Organization [facility] Referring Provider First Name Davey Referring Provider Last Name Raulito Referring Provider [facility] Referred Provider Romero Mueller Referred Provider Specialty Orthopedic S urgery Referral Priority Routine Diagnosis 1 Weakness (R53.1) Referral Organization [facility] Referring Provider First Name Davey Referring Provider Last Name Raulito Referring Provider [facility] Referred Provider [facility], Physical Therap y Referred Provider Specialty Physical The rapist Referral Priority Routine Reason Needs EGD and Colono scopy please! Diagnosis 1 Anemia (D64.9) Referral Organization [facility] Referring Provider First Name Davey Referring Provider Last Name Raulito Referring Provider [facility] Referred Provider Santos Freeman Referred Provider Specialty General Surg santana Referral Priority Routine Reason PT and aquatic thera py - eval an dtreat Diagnosis 1 Weakness (R53.1) Referral Organization [facility] Referring Provider First Name Davey Referring Provider Last Name Jared Referring Provider [facility] Referred Provider Shawn Chawla PT, Nor walk Referred Provider Specialty Physical The rapist Referral Priority Routine Medications Medication SIG (Take, Route, Frequency, Duration) Notes Start Date End Date Status Promethazine HCl 25 MG 1 tablet as neede d Orally q6h for 30 days PRN 02/22/2023 Active BIPAP -- as directed Active Protonix 40 MG 1 tablet Orally Once a day for 30 days 10/26/2023 Active Paxil 40 MG 1 tablet in the morn ing Orally Once a day for 30 days Active CeleBREX 100 MG 1 capsule with food Orally Once a day for 30 days 08/21/2024 Active Ondansetron 4 MG 1 tablet on the tong ue and allow to dissolve Orally qid PRN 06/28/2024 Active chlordiazePOXIDE HCl 10 MG 1 capsule Orally tid PRN for 7 days needs to last a week 08/21/2024 Active Doxepin HCl 50 MG 1 capsule at bedtime Orally Once a day for 30 days 05/22/2024 Active valACYclovir HCl 500 MG 1 tablet Orally tid for 10 days 07/20/2024 Active Semaglutide 0.3 mg/0.25mL 0.3 mg/0.25 mL 0.6 mg Subcutaneous Once weekly for 30 days 05/23/2024 Active Haloperidol 2 MG 1 tablet Orally thre e times daily for 30 days Active Levothyroxine Sodium 100 MCG 1 tablet in the morning on an empty stomach Orally Once a day for 30 days Active Ventolin HFA 108 [...] Problem Status W/U Status Risk Notes Problem [id number] 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 Problem Hypoglycemia (125323811) Hypoglycemia, unspecified (E16.2) Active confirmed Problem Dehydration (93794846) Dehydration (E86.0) Active confirmed Problem Palpitations (27153292) Palpitations (R00.2) Active confirmed Problem Weakness (11818072) Weakness (R53.1) Active con firmed Problem History of cardiac catheterization (52065973134186) History of cardiac catheterization (V45.89) Active confirmed Problem Obesity (206228259) Obesity (E66.9) Active conf irmed Problem Anxiety (84298239) Anxiety (F41.9) Active confi rmed Problem Edema (79297808) Edema (R60.9) Active confirmed Problem History of cardiac catheterization (17200136904241) H/O cardiac catheterization (V45.89) Active confirmed Problem Anemia (360661542) Anemia (D64.9) Active confir med Problem Dyspnea (356982370) Dyspnea (R06.00) Active con firmed Problem Sleep apnea (77172034) Sleep apnea (G47.30) Active confirmed Problem CVA - Cerebrovascular accident (426560405) CVA (cerebral vascular accident) (I63.9) Active confirmed Problem Insomnia (123937957) Insomnia (G47.00) Active confirmed Problem Hiatal hernia (17858195) Hiatal hernia (K44.9) Active confirmed Problem Hip pain (34432584) Hip pain (M25.559) Active c onfirmed Problem Syncope (332216810) Syncope (R55) Active confir med Problem Vitamin D deficiency (73232845) Vitamin D deficiency (E55.9) Active confirmed Problem Alcohol abuse (31272903) Alcohol abuse (F10.10) Active confirmed Problem Generalized anxiety disorder (07688224) ESTRELLITA (generalized anxiety disorder) (F41.1) Active confirmed Problem Arthralgia (74755678) Arthralgia (M25.50) Active confirmed Problem Pain of right knee region (finding) (218713266433938) Knee pain, right (M25.561) Active confirmed Problem Dysmenorrhea (029885866) Dysmenorrhea (N94.6) Active confirmed Problem Acute bronchitis (02803263) Acute bronchitis (J20.9) Active confirmed Problem Leg pain (25653288) Leg pain (M79.606) Active c onfirmed Problem Paresthesia (17437890) Paresthesia (R20.2) Active confirmed Problem Dysphagia (39604412) Dysphagia (R13.10) Active confirmed Problem Acquired hypothyroidism (422463005) Acquired hypothyroidism (E03.9) Active confirmed Problem Cellulitis (685933967) Cellulitis (L03.90) Active confirmed Problem Plantar fasciitis (859081455) Plantar fasciitis (M72.2) Active confirmed Problem Esophageal stricture (56854250) Esophageal stricture (K22.2) Active confirmed Problem Skin sensation disturbance (78041960) Arm paresthesia, left (R20.2) Active confirmed Problem Dyshidrotic eczema (760655936) Dyshidrotic eczema (L30.1) Active confirmed Problem Diverticulitis of colon (495311902) Diverticulitis of colon (K57.32) Active confirmed Problem Menometrorrhagia (690646962) Menometrorrhagia (N92.1) Active confirmed Problem Type II diabetes mellitus without complication (508341217) Type 2 diabetes mellitus without complication (E11.9) Active confirmed Problem 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) Active confirmed Problem Chronic lymphocytic thyroiditis (03644256) Chronic lymphocytic thyroiditis (E06.3) Active confirmed Problem Suicidal ideation (1084553) Suicidal ideation (R45.851) Active confirmed Problem Gastro-esophageal reflux disease (302861430) Gastro-esophageal reflux disease (K21.9) Active confirmed Problem Fracture of metatarsal bone (519830812) Fracture of metatarsal bone (S92.309A) Active confirmed Problem Postprocedural states (286700242) Other specified postprocedural states (Z98.890) Active confirmed Problem Moderate dehydration (4130725112471) Dehydration, moderate (E86.0) Active confirmed Problem Follicular thyroid carcinoma (432027493) Follicular thyroid carcinoma (C73) Active confirmed Problem Diabetes mellitus (68846648) Diabetes mellitus (E11.9) Active confirmed Problem Ureteric stone (81987442) Calculus, ureteral (N20.1) Active confirmed Vital Signs Heart Rate 81 /min 07/20/2024 Temperature 99.5 degrees Fahrenheit 07/20/2024 Oximetry 99 % 07/20/2024 Blood pressure diastolic 70 mm Hg 08/21/2024 Height 62.5 in 08/21/2024 Blood pressure systolic 118 mm Hg 08/21/2024 Weight 269 lbs 08/21/2024 BMI 48.41 kg/m2 08/21/2024 Procedures Procedure Date Ordered Date Performed Result Body Sit e EGD w/Colonoscopy 07/24/2024 N/A Encounters Encounter Location Date Provider Diagnosis [facility] [address] [place] [address] 08/03/2024 Davey Cabezas Palpitations R00.2 [facility] [address] [place] [address] 08/09/2024 Davey Hoy [facility] [address] [place] [address] 08/15/2024 Davey Hoy Palpitations R00.2 [facility] [address] [place] [address] 07/23/2024 Davey Hoy Peace's thyroidi tis E06.3 ; Palpitations R00.2 and Anemia D64.9 [facility] [address] [place] [address] 07/24/2024 Davey Hoy Frequency of micturition R35.0 [facility] [address] [place] [address] 07/24/2024 Davey Hoy [facility] [address] [place] [address] 07/24/2024 Davey Hoy Palpitations R00.2 [facility] [address] [place] [address] 07/24/2024 Davey Hoy Esophageal stricture K22.2 and Diverticulitis of colon K57.32 [facility] [address] [place] [address] 07/25/2024 Davey Hoy [facility] [address] [place] [address] 07/04/2024 Davey Hoy [facility] [address] [place] [address] 07/05/2024 Davey Hoy Palpitations R00.2 [facility] [address] [place] [address] 07/05/2024 Davey Hoy Palpitations R00.2 [facility] [address] [facility] [place] [address] 07/11/2024 Davey Hoy [facility] [address] [place] [address] 2024 Davey Hoy [facility] [address] [place] [address] 07/14/2024 Davey Hoy Palpitations R00.2 [facility] [address] [place] [address] 06/01/2024 Davey Hoy Palpitations R00.2 [facility] [address] [place] [address] 06/05/2024 Davey Hoy [facility] [address] [facility] [place] [address] 06/06/2024 Davey Hoy Fracture of metatars al bone S92.309A [facility] [address] [place] [address] 06/07/2024 Davey Hoy Palpitations R00.2 [facility] [address] [facility] [place] [address] 06/19/2024 Davey Hoy Palpitations R00.2 [facility] [address] [facility] [address] [place] [address] 06/28/2024 Davey Hoy Palpitations R00.2 [facility] [address] [place] [address] 05/23/2024 Davey Hoy [facility] [address] [facility] [address] [place] [address] 05/23/2024 Davey Hoy [facility] [address] [facility] [place] [address] 05/29/2024 Davey Hoy Palpitations R00.2 a nd Frequency of micturition R35.0 [facility] [address] [facility] [address] [place] [address] 05/30/2024 Davey Hoy [facility] [address] [facility] [address] [place] [address] 05/30/2024 Davey Hoy [facility] [address] [facility] [place] [address] 06/01/2024 Davey Hoy Palpitations R00.2 [facility] [address] [facility] [address] [place] [address] 09/28/2023 Davey Hoy Fatigue R53.83 [facility] [address] [facility] [address] [place] [address] 10/26/2023 Davey Cabezas [facility] [address] [facility] [place] [address] 12/17/2023 Davey Cabezas [facility] [address] [facility] [place] [address] 01/18/2024 Davey Cabezas [facility] [address] [facility] [place] [address] 04/03/2024 Davey Cabezas [facility] [address] [facility] [place] [address] 04/03/2024 Davey robert [facility] [address] [facility] [place] [address] 08/24/2023 Davey robert [facility] [address] [facility] [place] [address] 09/08/2023 Davey Cabezas [facility] [address] [place] [address] 09/23/2023 Davey Hoy Anemia D64.9 ; Weakn ess R53.1 and B12 deficiency E53.8 [facility] [address] [place] [address] 05/22/2024 Davey Hoy Palpitations R00.2 ; Insomnia G47.00 ; ESTRELLITA (generalized anxiety disorder) F41.1 and Right foot pain M79.671 [address] [place] [address] 07/20/2024 Davey Hoy Anemia D64.9 ; Vitam in D deficiency E55.9 ; 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 ; Acute bronchitis J20.9 and Weakness R53.1 [facility] [address] [place] [address] 12/06/2023 Adrienne Aric Urine abnormality R82.90 ; Loose stools R19.5 and Wellness examination Z00.00 [facility] [address] [place] [address] 08/21/2024 Davey Hoy Leg pain M79.606 and Weakness R53.1 Assessments Encounter Date Diagnosis (ICD Code) Assessment Notes Treatment Notes Treatment Clinical Notes Section Notes 05/22/2024 Palpitations (ICD-10 - R00.2) 05/22/2024 Insomnia (ICD-10 - G47.00) 07/20/2024 Anemia (ICD-10 - D64.9) 07/20/2024 Vitamin D deficiency (ICD-10 - E55.9) 08/21/2024 Leg pain (ICD-10 - M79.606) 08/21/2024 Weakness (ICD-10 - R53.1) 09/23/2023 Anemia (ICD-10 - D64.9) 09/23/2023 Weakness [...] METABOLIC PANEL) 4 CMP (COMPLETE METABOLIC PANEL) UA (URINALYSIS, COMPLETE) [...] CSPINE WO CON 06/28/2023 US ABD 06/16/2023 US GWEN DOP LEG LT 08/21/2024 XR CHEST 2 V 07/20/2024 XR FOOT RT 2V 05/22/2024 XR TIB_FIB LT 2V 08/21/2024 Plain Treadmill Stress 06/30/2023 THYROID PANEL (T4/TSH/FREE [...] Coverage Start Date Coverage End Date [employer] [place] [employer] [address] [facility] [address] [place] [address] [id number] Esme Reyes Self - patient is the [...] History Reason Date(Month/Year) hernia 2017 syncope 2020 COVID [employer] 2021
--- OUTSIDE RECORDS SUMMARY | 2024-08-21 15:42 | XMS_ITS | Encounter Summary ---
Demographics Address [address] [facility] [place] [address] Home Phone Mobile Phone Email Address Preferred Language ENG Marital Status Single Jain Affiliation Unknown Race White Ethnic Group Not or Lati no Author Organization [facility] Address [address] [place] [address] Care Team Providers Care Washerette Machine Operator Name Role Phone Farhat Cabezas MD Primary Care Provider [phone] Farhat Cabezas MD Unavailable [phone] Farhat Cabezas MD Unavailable [phone] Source Comments In the event this [...] Sleep Disorders [address] [place] [address] Mehnaz Serrano APRN.HADOOP ANALYST [address] [place] [address] sleep plan Social History Tobacco [...] ot on file 02/25/2022 Data from: https://www.neighborhoodatlas.medicine.[facility]/. Last address used for calculation [address] 02/25/2022 Comments No Sex and Gender [...] EDT [facility] Endocrinology [address] [place] [address] Greg Nina, MARITZA.HADOOP ANALYST [address] [place] [address] diabetes follow up with me in 3 months virtually 11/20/2024 1:[address] PM ED[address] [facility] Endocrinology [address] [place] [address] Valdez Suarez MD [address] [place] [address] [address] [place], [place] 2007[address] follow up in 6 months documented as of this encounter Visit Diagnoses Not on filedocumented in this encounter Care Teams Washerette Machine Operator Relationship Specialty Start Date End Date Farhat Cabezas MD PCP - General Family Medicine 01/13/11 Farhat Cabezas MD Referring Family Medicine 01/08/22 Farhat Cabezas MD [address] [place] [address] Referring Family Medicine 07/26/24 documented as of this encounter
--- OUTSIDE RECORDS SUMMARY | 2024-08-21 15:42 | XMS_ITS | Encounter Summary ---
Author Organization [facility] Address [facility] [place] [address] Care Team Providers Care Hand Welt Butter Name Role Phone Farhat Cabezas MD Primary Care Provider [phone] Farhat Cabezas MD Unavailable [phone] Farhat Cabezas MD Unavailable [phone] Source Comments In the event this information is protected by the Federal Confidentiality of Alcohol and Drug AbusePatient Records regulations: The Federal rules restrict any use of the information to criminally investigate or prosecute any alcohol or drug abuse patient.[facility] Encounter Details Date Type Department Care Team (Late st Contact Info) Description 12/18/2019 Get Medical Advice General Surgery BMI PSYL [address] [place], [place] [id number] Graciela Hoyt, PhD [address] [phone] RE: Visit Follow Up Question Social History [...] Info) Description 08/30/2024 9:30 AM EDT [facility] Endocrinology [address] [place] [address] Greg Nina APRN.CORD SPLICER [address] [place] [address] diabetes follow up with me in 3 months virtually 11/20/2024 1:00 PM EDT Distance [facility] Endocrinology [address] [place] [address] Valdez Suarez MD [address] [place] [address] [address] [place], [place] [phone] follow up in 6 months documented as of this encounter Visit Diagnoses Not on filedocumented in this encounter Care Teams Hand Welt Butter Relationship Specialty Start Date End Date Farhat Cabezas MD PCP - General Family Medicine 01/13/11 Farhat Cabezas MD Referring Family Medicine 01/08/22 Farhat Cabezas MD [address] [place] [address] Referring Family Medicine 07/26/24 documented as of this encounter
--- OUTSIDE RECORDS SUMMARY | 2024-08-21 15:42 | XMS_ITS | Encounter Summary ---
Author Organization [facility] Address [address] [place] [address] Care Team Providers Care Glazing Superintendent Name Role Phone Jacob Santillan MD Primary Care Provider [phone] Farhat Cabezas MD Primary Care Provider [phone] Farhat Cabezas MD Unavailable [phone] Farhat Cabezas MD Unavailable [phone] Source Comments In the event this information is protected by the Federal Confidentiality of Alcohol and Drug AbusePatient Records regulations: The Federal rules restrict any use of the information to criminally investigate or prosecute any alcohol or drug abuse patient.[facility] Encounter Details Date Type Department Care Team ([facility] Contact Info) Description 10/18/2008 Patient Msg Medical Records [address] [place] [address] Provider, Ccf Patient Registration Social History Tobacco [...] Upcoming Encounters Date Type Department Care Team ([facility] Contact Info) Description 08/30/2024 9:30 AM EDT [facility] Endocrinology [address] [place] [address] Greg Nina APRN.EAP CLINICIAN [address] [place] [address] diabetes follow up with me in 3 months virtually 11/20/2024 1:00 PM EDT [facility] Endocrinology [address] [place] [address] Valdez Suarez MD [address] [place] [address] [place], [place] [phone] follow up in 6 months documented as of this encounter Visit Diagnoses Not on filedocumented in this encounter Care Teams Glazing Superintendent Relationship Specialty Start Date End Date Jacob Santillan MD PCP - General 08/05/05 01/12/11 Farhat Cabezas MD PCP - General Family Medicine 01/13/11 Farhat Cabezas MD Referring Family Medicine 01/08/22 Farhat Cabezas MD [address] [place] [address] Referring Family Medicine 07/26/24 documented as of this encounter
--- OUTSIDE RECORDS SUMMARY | 2024-08-21 15:42 | XMS_ITS | Encounter Summary ---
Demographics Address [address] [facility] [place] [address] Home Phone Mobile Phone Email Address Preferred Language ENG Marital Status Single Christian Affiliation Unknown Race White Ethnic Group Not or Lati no Author Organization [facility] Address [address] [place] [address] Care Team Providers Care Double Bass Player Name Role Phone Farhat Cabezas MD Primary Care Provider [phone] Farhat Cabezas MD Unavailable [phone] Farhat Cabezas MD Unavailable [phone] Source Comments In the event this information is protected by the Federal Confidentiality of Alcohol and Drug AbusePatient Records regulations: The Federal rules restrict any use of the information to criminally investigate or prosecute any alcohol or drug abuse patient.[facility] Encounter Details Date Type Department Care Team (Late st Contact Info) Description 09/23/2021 Patient Msg [facility] [address] [place] [address] Provider, Ccf A Message from the [facility] Social History Tobacco Use Types [...] N ot on file 07/19/2021 Data from: https://www.neighborhoodatlas.[facility].edu/. Last address used for calculation [address] [employer] 07/19/2021 Comments No Sex and Gender Information [...] Contact Info) Description 08/30/2024 9:30 AM EDT [facility] Endocrinology [address] [place] [address] Greg Nina APRN.TRAFFIC SIGNAL TECHNICIAN [address] [place] [address] diabetes follow up with me in 3 months virtually 11/20/2024 1:00 PM EDT [facility] Endocrinology [address] [place] [address] Valdez Suarez MD [address] [place] [address] [address] [place], [place] 8[address]2435 follow up in 6 months documented as of this encounter Visit Diagnoses Not on filedocumented in this encounter Care Teams Double Bass Player Relationship Specialty Start Date End Date Farhat Cabezas MD PCP - General Family Medicine 01/13/11 Farhat Cabezas MD Referring Family Medicine 01/08/22 Farhat Cabezas MD [address] [place] [address] Referring Family Medicine 07/26/24 documented as of this encounter
--- OUTSIDE RECORDS SUMMARY | 2024-08-21 15:42 | XMS_ITS | Encounter Summary ---
Demographics Address [address] [address] Home Phone Mobile Phone Email Address Preferred Language ENG Marital Status Single Catholic Affiliation Unknown Race White Ethnic Group Not or Lati no Author Organization [facility] Address [address] [place] [address] Care Team Providers Care Program Trainer Name Role Phone Farhat Cabezas MD Primary Care Provider [phone] Farhat Cabezas MD Unavailable [phone] Farhat Cabezas MD Unavailable Source Comments In the event this information is protected by the Federal Confidentiality of Alcohol and Drug AbusePatient Records regulations: The Federal rules restrict any use of the information to criminally investigate or prosecute any alcohol or drug abuse patient.[facility] Encounter Details Date Type Department Care Team (Late st Contact Info) Description 02/22/2020 Get Medical Advice [facility] REJ [address] [place], [place] [phone] Rachel Yi MD [address] [place] [address] RE: Medication Question (Not Renewal) [...] on file 01/16/2020 Data from: https://www.neighborhoodatlas.medicine.[facility]/. Last address used for calculation Not [...] 08/30/2024 9:30 AM EDT [facility] Endocrinology [address] [place] [address] Greg Nina APRN.JAVA SECURITY ARCHITECT [address] [place] [address] diabetes follow up with me in 3 months virtually 11/20/2024 1:00 PM EDT [facility] Endocrinology [address] [place] [address] Valdez Suarez MD [address] [place] [address] [address] [place], [place] [phone] follow up in 6 months documented as of this encounter Visit Diagnoses Not on filedocumented in this encounter Care Teams Program Trainer Relationship Specialty Start Date End Date Farhat Cabezas MD PCP - General Family Medicine 01/13/11 Farhat Cabezas MD Referring Family Medicine 01/08/22 [place] [address] [place] [address] Referring Family Medicine 07/26/24 documented as of this encounter
--- OUTSIDE RECORDS SUMMARY | 2024-08-21 15:42 | XMS_ITS | Encounter Summary ---
Demographics Address [address] [facility] [place] [address] Home Phone Mobile Phone Email Address Preferred Language ENG Marital Status Single Alevism Affiliation Unknown Race White Ethnic Group Not or Lati no Author Organization [facility] Address [address] [place] [address] Care Team Providers Care Carbon Paste Mixer Operator Name Role Phone Farhat Cabezas MD Primary Care Provider [phone] Farhat Cabezas MD Unavailable [phone] Farhat Cabezas MD Unavailable [phone] Source Comments In the event this information is protected by the Federal Confidentiality of Alcohol and Drug AbusePatient Records regulations: The Federal rules restrict any use of the information to criminally investigate or prosecute any alcohol or drug abuse patient.[facility] Encounter Details Date Type Department Care Team (Late st Contact Info) Description 09/28/2021 Patient Msg Sleep Psychology [address] [place] [address] Marlene Lazcano, PhD [address] [facility] [address] [phone] behavioral sleep medicine visit Tues Social History [...] N ot on file 07/19/2021 Data from: https://www.neighborhoodatlas.medicine.[facility]/. Last address used for calculation [address] [...] Info) Description 08/30/2024 9:30 AM EDT [facility] Endocrinology [address] [place] [address] Greg Nina APRN.[place]MODIALYSIS [place] [address] [place], [place] [phone] diabetes follow up with me in 3 months virtually 11/20/2024 1:00 PM EDT [facility] Endocrinology [address] [place] [address] Valdez Suarez MD [address] [place] [address] [address] [place], [place] 2375135 follow up in 6 months documented as of this encounter Visit Diagnoses Not on filedocumented in this encounter Care Teams Carbon Paste Mixer Operator Relationship Specialty Start Date End Date Farhat Cabezas MD PCP - General Family Medicine 01/13/11 Farhat Cabezas MD Referring Family Medicine 01/08/22 Farhat Cabezas MD [address] [place] [address] Referring Family Medicine 07/26/24 documented as of this encounter
--- OUTSIDE RECORDS SUMMARY | 2024-08-21 15:42 | XMS_ITS | Encounter Summary ---
Author Organization [facility] Address [address] [place] [address] Care Team Providers Care Concrete Buster Operator Name Role Phone Farhat Cabezas MD Primary Care Provider [phone] Farhat Cabezas MD Unavailable [phone] Farhat Cabezas MD Unavailable [phone] Source Comments In the event this [...] 10/12/2019 Patient Msg General Surgery BMI PSYL [address] [place], [place] [phone] Graciela Hoyt, PhD [address] [phone] OCD specialists Social History Tobacco Use Types [...] 08/30/2024 9:30 AM EDT [facility] Endocrinology [address] [place] [address] Greg Nina APRN.[employer]TER [employer] CUTTER [address] [place] [address] diabetes follow up with me in 3 months virtually 11/20/2024 1:00 PM EDT [facility] Endocrinology [address] [place] [address] Valdez Suarez MD [address] [place] [address] [address] [place], [place] [phone] follow up in 6 months documented as of this encounter Visit Diagnoses Not on filedocumented in this encounter Care Teams Concrete Buster Operator Relationship Specialty Start Date End Date Farhat Cabezas MD PCP - General Family Medicine 01/13/11 Farhat Cabezas MD Referring Family Medicine 01/08/22 [place] [address] [place] [address] Referring Family Medicine 07/26/24 documented as of this encounter
--- OUTSIDE RECORDS SUMMARY | 2024-08-21 15:42 | XMS_ITS | Encounter Summary ---
Demographics Address [address] [facility] [place] [address] Home Phone Mobile Phone Email Address Preferred Language ENG Marital Status Single Synagogue Affiliation Unknown Race White Ethnic Group Not or Lati no Author Organization [facility] Address [address] [place] [address] Care Team Providers Care Rack Maker Name Role Phone Farhat Cabezas MD Primary Care Provider [phone] Farhat Cabezas MD Unavailable [phone] Farhat Cabezas MD Unavailable [phone] Source Comments In the event this information is protected by the Federal Confidentiality of Alcohol and Drug AbusePatient Records regulations: The Federal rules restrict any use of the information to criminally investigate or prosecute any alcohol or drug abuse patient.[facility] Encounter Details Date Type Department Care Team (Late st Contact Info) Description 04/29/2022 Get Medical Advice Neurology [address] [place], [place] [phone] Fariha Acevedo MD [address] [place] [address] SLEEP APNEA / DOWNLOAD BI [...] N ot on file 02/25/2022 Data from: https://www.neighborhoodatlas.medicine.[facility]/. Last address used for calculation [address] [...] Carpio RN - 04/29/2022 2:57 PM EDT [employer] message sent * Telephone Encounter - Keshawn Carpio RN - 04/29/2022 2:50 PM EDT Images from the original note were not included. documented in this encounter Plan of Treatment Upcoming Encounters Date Type Department Care Team (Late st Contact Info) Description 08/30/2024 9:30 AM EDT [facility] Endocrinology [address] [place] [address] Greg Nina APRN.PALLET SORTER [address] [place], [place] [phone] diabetes follow up with me in 3 months virtually 11/20/2024 1:00 PM EDT [facility] Endocrinology [address] [place] [address] Valdez Suarez MD [address] [place] [address] [address] [place], [place] 6011035 follow up in 6 months documented as of this encounter Visit Diagnoses Not on filedocumented in this encounter Care Teams Rack Maker Relationship Specialty Start Date End Date Farhat Cabezas MD PCP - General Family Medicine 01/13/11 Farhat Cabezas MD Referring Family Medicine 01/08/22 Farhat Cabezas MD [address] [place] [address] Referring Family Medicine 07/26/24 documented as of this encounter
--- OUTSIDE RECORDS SUMMARY | 2024-08-21 15:42 | XMS_ITS | Encounter Summary ---
Author Organization [facility] Address [address] [place] [address] Care Team Providers Care Moisture Tester Name Role Phone Farhat Cabezas MD Primary Care Provider [phone] Farhat Cabezas MD Unavailable [phone] Farhat Cabezas MD Unavailable [phone] Source Comments In the event this information is protected by the Federal Confidentiality of Alcohol and Drug AbusePatient Records regulations: The Federal rules restrict any use of the information to criminally investigate or prosecute any alcohol or drug abuse patient.[facility] Encounter Details Date Type Department Care Team (Late st Contact Info) Description 12/18/2019 Get Medical Advice [facility] REJ [address] [place], [place] [phone] Rachel Yi MD [address] [place] [address] RE: Non-Urgent Medical Question Social [...] Contact Info) Description 08/30/2024 9:30 AM EDT [facility] Endocrinology [address] [place] [address] Greg Nina APRN.SAMPLE PREP TECHNICIAN [address] [place] [address] diabetes follow up with me in 3 months virtually 11/20/2024 1:00 PM EDT Distance [facility] Endocrinology [address] [place] [address] Valdez Suarez MD [address] [place] [address] [address] [place], [place] [phone] follow up in 6 months documented as of this encounter Visit Diagnoses Not on filedocumented in this encounter Care Teams Moisture Tester Relationship Specialty Start Date End Date Farhat Cabezas MD PCP - General Family Medicine 01/13/11 Farhat Cabezas MD Referring Family Medicine 01/08/22 Farhat Cabezas MD [address] [place] [address] Referring Family Medicine 07/26/24 documented as of this encounter
--- OUTSIDE RECORDS SUMMARY | 2024-08-21 15:42 | XMS_ITS | Encounter Summary ---
Author Organization [facility] Address [facility] [place] [address] Care Team Providers Care Supervisor Boat Outfitting Name Role Phone Farhat Cabezas MD Primary Care Provider [phone] Farhat Cabezas MD Unavailable [phone] Farhat Cabezas MD Unavailable [phone] Source Comments In the event this information is protected by the Federal Confidentiality of Alcohol and Drug AbusePatient Records regulations: The Federal rules restrict any use of the information to criminally investigate or prosecute any alcohol or drug abuse patient.[facility] Encounter Details Date Type Department Care Team (Late st Contact Info) Description 10/09/2019 Get Medical Advice General Surgery BMI PSYL [address] [place], [place] [id number] Graciela Hoyt, PhD [address] [phone] RE: Upcoming Appointment Question Social History Tobacco [...] Info) Description 08/30/2024 9:30 AM EDT [facility] Endocrinology [address] [place] [address] Greg Nina APRN.CONSUMER LOAN SPECIALIST [address] [place] [address] diabetes follow up with me in 3 months virtually 11/20/2024 1:00 PM EDT [facility] Endocrinology [address] [place] [address] Valdez Suarez MD [address] [place] [address] [place] [address] follow up in 6 months documented as of this encounter Visit Diagnoses Not on filedocumented in this encounter Care Teams Supervisor Boat Outfitting Relationship Specialty Start Date End Date Farhat Cabezas MD PCP - General Family Medicine 01/13/11 Farhat Cabezas MD Referring Family Medicine 01/08/22 Farhat Cabezas MD [address] [place] [address] Referring Family Medicine 07/26/24 documented as of this encounter
--- OUTSIDE RECORDS SUMMARY | 2024-08-21 15:42 | XMS_ITS | Encounter Summary ---
Demographics Address [address] [place] [address] Home Phone Mobile Phone Email Address Preferred Language ENG Marital Status Single Holiness Affiliation Unknown Race White Ethnic Group Not or Lati no Author Organization [facility] Address [address] [place] [address] Care Team Providers Care Fast Food Shift Lead Name Role Phone Farhat Cabezas MD Primary Care Provider [phone] Farhat Cabezas MD Unavailable [phone] Farhat Cabezas MD Unavailable [phone] Source Comments In the event this information is protected by the Federal Confidentiality of Alcohol and Drug AbusePatient Records regulations: The Federal rules restrict any use of the information to criminally investigate or prosecute any alcohol or drug abuse patient.[facility] Encounter Details Date Type Department Care Team (Late st Contact Info) Description 09/22/2020 Get Medical Advice [facility] REJ [address] [place], [place] [phone] Rachel Yi MD [address] [place] [address] RE: Visit Follow Up Question Social History Tobacco Use Types Packs/Day Years Used Date Smoking Tobacco: Never Smokeless Tobacco: Never Alcohol Use Standard Drinks/Week Comments Yes 0 (1 standard drink = 0.6 oz pur e alcohol) Social Area Deprivation Index Answer Date Rdo rded National Score (1-100), lower number is lower ri sk Not on file 01/16/2020 State Score (1-10), lower number is lower risk N ot on file 01/16/2020 Data from: https://www.neighborhoodatlas.medicine.[facility]/. Last [...] 9:30 AM EDT [facility] Endocrinology [address] [place] [address] Greg Nina APRN.WANT AD CLERK [address] [place], [place] [phone] diabetes follow up with me in 3 months virtually 11/20/2024 1:00 PM EDT [facility] Endocrinology [address] [place] [address] Valdez Suarez MD [address] [place] [address] [address] [place], [place] [phone] follow up in 6 months documented as of this encounter Visit Diagnoses Not on filedocumented in this encounter Care Teams Fast Food Shift Lead Relationship Specialty Start Date End Date Farhat Cabezas MD PCP - General Family Medicine 01/13/11 Farhat Cabezas MD Referring Family Medicine 01/08/22 Farhat Cabezas MD [address] [place] [address] Referring Family Medicine 07/26/24 documented as of this encounter
--- OUTSIDE RECORDS SUMMARY | 2024-08-21 15:42 | XMS_ITS | Encounter Summary ---
Demographics Address [address] [facility] [address] Home Phone Mobile Phone Email Address Preferred Language ENG Marital Status Single Restorationism Affiliation Unknown Race White Ethnic Group Not or Lati no Author Organization [facility] Address [address] [place] [address] Care Team Providers Care Cnp Name Role Phone Farhat Cabezas MD Primary Care Provider [phone] Farhat Cabezas MD Unavailable [phone] Farhat Cabezas MD Unavailable [phone] Source Comments In the event this information is protected by the Federal Confidentiality of Alcohol and Drug AbusePatient Records regulations: The Federal rules restrict any use of the information to criminally investigate or prosecute any alcohol or drug abuse patient.[facility] Encounter Details Date Type Department Care Team (Late st Contact Info) Description 01/22/2022 Patient Msg Endocrinology [address] [place] [address] Valdez Suarez MD [address] [place] [address] [place] [address] labs and appointment Social History [...] N ot on file 07/19/2021 Data from: https://www.neighborhoodatlas.medicine.[facility]/. Last address used for calculation 102 [...] 9:30 AM EDT [facility] Endocrinology [address] [place] [address] Greg Nina APRN.VENTILATING EQUIPMENT INSTALLER [address] [place], [place] [phone] diabetes follow up with me in 3 months virtually 11/20/2024 1:00 PM EDT [facility] Endocrinology [address] [place] [address] Valdez Suarez MD [address] [place] [address] [address] [place], [place] [phone] follow up in 6 months documented as of this encounter Visit Diagnoses Not on filedocumented in this encounter Care Teams Cnp Relationship Specialty Start Date End Date Farhat Cabezas MD PCP - General Family Medicine 01/13/11 Farhat Cabezas MD Referring Family Medicine 01/08/22 Farhat Cabezas MD [address] [place] [address] Referring Family Medicine 07/26/24 documented as of this encounter
--- OUTSIDE RECORDS SUMMARY | 2024-08-21 15:42 | XMS_ITS | Encounter Summary ---
Demographics Address [address] [place] [address] Home Phone Mobile Phone Email Address Preferred Language ENG Marital Status Single Jainism Affiliation Unknown Race White Ethnic Group Not or Lati no Author Organization [facility] Address [address] [place] [address] Care Team Providers Care Sawmill Equipment Operator Name Role Phone Farhat Cabezas MD Primary Care Provider [phone] Farhat Cabezas MD Unavailable [phone] Farhat Cabezas MD Unavailable [phone] Source Comments In the event this information is protected by the Federal Confidentiality of Alcohol and Drug AbusePatient Records regulations: The Federal rules restrict any use of the information to criminally investigate or prosecute any alcohol or drug abuse patient.[facility] Encounter Details Date Type Department Care Team (Late st Contact Info) Description 12/18/2019 Get Medical Advice [facility] REJ [address] [place], [place] [phone] Rachel Yi MD [address] [place] [address] RE: Visit Follow Up Question [...] Info) Description 08/30/2024 9:30 AM EDT [facility] Endocrinology [address] [place] [address] Greg Nina APRN.BRICK WHEELER [address] [place] [address] diabetes follow up with me in 3 months virtually 11/20/2024 1:00 PM EDT [facility] Endocrinology [address] [place] [address] Valdez Suarez MD [address] [place] [address] [address] [place], [place] 3163435 follow up in 6 months documented as of this encounter Visit Diagnoses Not on filedocumented in this encounter Care Teams Sawmill Equipment Operator Relationship Specialty Start Date End Date Farhat Cabezas MD PCP - General Family Medicine 01/13/11 Farhat Cabezas MD Referring Family Medicine 01/08/22 Farhat Cabezas MD [address] [place] [address] Referring Family Medicine 07/26/24 documented as of this encounter
--- OUTSIDE RECORDS SUMMARY | 2024-08-21 15:43 | XMS_ITS | Encounter Summary ---
Demographics Address [address] [place] [address] Home Phone Mobile Phone Email Address Preferred Language ENG Marital Status Single Rastafarian Affiliation Unknown Race White Ethnic Group Not or Lati no Author Organization [facility] Address [facility] [place] [address] Care Team Providers Care Photographer Finish Name Role Phone Farhat Cabezas MD Primary Care Provider [phone] Farhat Cabezas MD Unavailable [phone] Farhat Cabezas MD Unavailable [phone] Source Comments In the event this information is protected by the Federal Confidentiality of Alcohol and Drug AbusePatient Records regulations: The Federal rules restrict any use of the information to criminally investigate or prosecute any alcohol or drug abuse patient.[facility] Encounter Details Date Type Department Care Team (Late st Contact Info) Description 05/02/2023 Patient [facility] [address] [phone] Mathew Ferraro MD Regarding your upcoming endoscopy [...] lower risk 2 12/21/2022 Data from: https://www.neighborhoodatlas.[facility].edu/. Last address used for calculation [address] [...] EDT [facility] Endocrinology [address] [place] [address] Greg Nina APRN.RESOURCING CONSULTANT [address] [place], [place] 0637039 diabetes follow up with me in 3 months virtually 11/20/2024 1:00 PM EDT [facility] Endocrinology [address] [place] [address] Valdez Suarez MD [address] [place] [address] [address] [place], [place] 6446135 follow up in 6 months documented as of this encounter Visit Diagnoses Not on filedocumented in this encounter Care Teams Photographer Finish Relationship Specialty Start Date End Date Farhat Cabezas MD PCP - General Family Medicine 01/13/11 Farhat Cabezas MD Referring Family Medicine 01/08/22 Farhat Cabezas MD [address] [place] [address] Referring Family Medicine 07/26/24 documented as of this encounter
--- OUTSIDE RECORDS SUMMARY | 2024-08-21 15:43 | XMS_ITS | Encounter Summary ---
Demographics Address [address] [facility] [place] [address] Home Phone Mobile Phone Email Address Preferred Language ENG Marital Status Single Confucianism Affiliation Unknown Race White Ethnic Group Not or Lati no Author Organization [facility] Address [address] [place] [address] Care Team Providers Care Senior Investigator Name Role Phone Farhat Cabezas MD Primary Care Provider [phone] Farhat Cabezas MD Unavailable [phone] Farhat aCbezas MD Unavailable [phone] Source Comments In the event this information is protected by the Federal Confidentiality of Alcohol and Drug AbusePatient Records regulations: The Federal rules restrict any use of the information to criminally investigate or prosecute any alcohol or drug abuse patient.[facility] Encounter Details Date Type Department Care Team (Late st Contact Info) Description 07/15/2022 Patient Msg Endocrinology [address] [place] [address] Provider, [facility] Social History Tobacco [...] is lower risk 4 06/11/2022 Data from: https://www.neighborhoodatlas.[facility]/. Last address used for calculation [address] [facility] 06/11/2022 Comments No Sex and [...] Description 08/30/2024 9:30 AM EDT [facility] Endocrinology [address] [place] [address] Greg Nina APRN.OFFICE MACHINE EMBOSSOGRAPH OPERATOR [address] [place] [address] diabetes follow up with me in 3 months virtually 11/20/2024 1:[address] [facility] Endocrinology [address] [place] [address] Valdez Suarez MD [address] [place] [address] [address] [place], [place] 6804835 follow up in 6 months documented as of this encounter Visit Diagnoses Not on filedocumented in this encounter Care Teams Senior Investigator Relationship Specialty Start Date End Date Farhat Cabezas MD PCP - General Family Medicine 01/13/11 Farhat Cabezas MD Referring Family Medicine 01/08/22 Farhat Cabezas MD [address] [place] [address] Referring Family Medicine 07/26/24 documented as of this encounter
--- OUTSIDE RECORDS SUMMARY | 2024-08-21 15:43 | XMS_ITS | Encounter Summary ---
Demographics Address [address] [facility] [place] [address] Home Phone Mobile Phone Email Address Preferred Language ENG Marital Status Single Confucianism Affiliation Unknown Race White Ethnic Group Not or Lati no Author Organization [facility] Address [address] [place] [address] Care Team Providers Care Wool Scourer Name Role Phone Farhat Cabezas MD Primary Care Provider [phone] Farhat Cabezas MD Unavailable [phone] Farhat Cabezas MD Unavailable [phone] Source Comments In the event this information is protected by the Federal Confidentiality of Alcohol and Drug AbusePatient Records regulations: The Federal rules restrict any use of the information to criminally investigate or prosecute any alcohol or drug abuse patient.[facility] Encounter Details Date Type Department Care Team (Late st Contact Info) Description 12/23/2015 Get Medical Advice General Surgery 9300 [place] [address] Rachel Yi MD [address]370 [place] [address] RE: Test Result Question Social [...] Info) Description 08/30/2024 9:30 AM EDT [facility] Endocrinology [address] [place] [address] Greg Nina APRN.CHILD DEVELOPMENT SPECIALIST [address] [place], [place] [phone] diabetes follow up with me in 3 months virtually 11/20/2024 1:00 PM EDT [facility] Endocrinology [address] [place] [address] Valdez Suarez MD [address] [place] [address] [address] [place], [place] 7791735 follow up in 6 months documented as of this encounter Visit Diagnoses Not on filedocumented in this encounter Care Teams Wool Scourer Relationship Specialty Start Date End Date Farhat Cabezas MD PCP - General Family Medicine 01/13/11 Farhat Cabezas MD Referring Family Medicine 01/08/22 Farhat Cabezas MD [address] [place] [address] Referring Family Medicine 07/26/24 documented as of this encounter
--- OUTSIDE RECORDS SUMMARY | 2024-08-21 15:43 | XMS_ITS | Encounter Summary ---
Demographics Address [address] [facility] [place] [address] Home Phone Mobile Phone Email Address Preferred Language ENG Marital Status Single Advent Affiliation Unknown Race White Ethnic Group Not or Lati no Author Organization [facility] Address [facility] [place] [address] Care Team Providers Care Rubber Tubing Splicer Name Role Phone Farhat Cabezas MD Primary Care Provider [phone] Farhat Cabezas MD Unavailable [phone] Farhat Cabezas MD Unavailable [phone] Source Comments In the event this information is protected by the Federal Confidentiality of Alcohol and Drug AbusePatient Records regulations: The Federal rules restrict any use of the information to criminally investigate or prosecute any alcohol or drug abuse patient.[facility] Encounter Details Date Type Department Care Team (Late st Contact Info) Description 09/27/2023 Get Medical Advice Neurology [address] [place] [address] Thaddeus Diggs MD [address] [place] [address] Mri Social History Tobacco Use [...] risk 2 12/21/2022 Data from: https://www.neighborhoodatlas.medicine.[facility]/. Last address used for calculation [...] 08/30/2024 9:30 AM EDT [facility] Endocrinology [address] [place] [address] Greg Nina, MARITZA.SAND TECHNICIAN [address] [place] [address] diabetes follow up with me in 3 months virtually 11/20/2024 1:00 PM EDT [facility] Endocrinology [address] [place] [address] Valdez Suarez MD [address] [place] [address] [address] [place], [place] 7554635 follow up in 6 months documented as of this encounter Visit Diagnoses Not on filedocumented in this encounter Care Teams Rubber Tubing Splicer Relationship Specialty Start Date End Date Farhat Cabezas MD PCP - General Family Medicine 01/13/11 Farhat Cabezas MD Referring Family Medicine 01/08/22 [place] [address] [place] [address] Referring Family Medicine 07/26/24 documented as of this encounter
--- OUTSIDE RECORDS SUMMARY | 2024-08-21 15:43 | XMS_ITS | Encounter Summary ---
Demographics Address [address] [facility] [place] [place] [address] Home Phone Mobile Phone Email Address Preferred Language ENG Marital Status Single Shinto Affiliation Unknown Race White Ethnic Group Not or Lati no Author Organization [facility] Address [facility] [place] [address] Care Team Providers Care Commissioned Sales Associate Name Role Phone Farhat Cabezas MD Primary Care Provider [phone] Farhat Cabezas MD Unavailable [phone] Farhat Cabezas MD Unavailable [phone] Source Comments In the event this [...] Info) Description 07/07/2024 Patient Msg Neurology [address] [place] [address] Thaddeus Diggs MD [address] [place] [address] MRI denial Social History Tobacco [...] is lower risk 7 03/07/2024 Data from: https://www.neighborhoodatlas.medicine.[facility]/ . Last address used for calculation [...] AM EDT [facility] Endocrinology [address] [place] [address] Greg Nina APRN.MUSEUM SPECIALIST [address] [place] [address] diabetes follow up with me in 3 months virtually 11/20/2024 1:00 PM EDT [facility] Endocrinology [address] [place] [address] Valdez Suarez MD [address] [place] [address] [place], [place] 6592135 follow up in 6 months documented as of this encounter Visit Diagnoses Not on filedocumented in this encounter Care Teams Commissioned Sales Associate Relationship Specialty Start Date End Date Farhat Cabezas MD PCP - General Family Medicine 01/13/11 Farhat Cabezas MD Referring Family Medicine 01/08/22 Farhat Cabezas MD [address] [place] [address] Referring Family Medicine 07/26/24 documented as of this encounter
--- OUTSIDE RECORDS SUMMARY | 2024-08-21 15:43 | XMS_ITS | Patient Health Record ---
Demographics Address [address] [place] [address] Mobile Preferred Language en Marital Status unmarried Congregational Affiliation Unknown Race White Ethnic Group Not or Lati no Author Organization [facility] Address [address] [facility] [place] [address] Care Team Providers Care Mechanics Supervisor Name Role Phone Jason Lemon Primary Care Provider [phone] Reason For Referral No Information Plan Of Treatment No Information
--- OUTSIDE RECORDS SUMMARY | 2024-08-21 15:43 | XMS_ITS | Encounter Summary ---
Demographics Address [address] [facility] [place] [address] Home Phone Mobile Phone Email Address Preferred Language ENG Marital Status Single Christianity Affiliation Unknown Race White Ethnic Group Not or Lati no Author Organization [facility] Address [address] [place] [address] Care Team Providers Care Ice Sculptor Name Role Phone Farhat Cabezas MD Primary Care Provider [phone] Farhat Cabezas MD Unavailable [phone] Farhat Cabezas MD Unavailable [phone] Source Comments In the event this information is protected by the Federal Confidentiality of Alcohol and Drug AbusePatient Records regulations: The Federal rules restrict any use of the information to criminally investigate or prosecute any alcohol or drug abuse patient.[facility] Encounter Details Date Type Department Care Team (Late st Contact Info) Description 03/31/2016 Get Medical Advice General Surgery [address] [place] [address] Rachel Yi MD [address] [place] [address] RE: Non-Urgent Medical Question Social [...] Contact Info) Description 08/30/2024 9:30 AM EDT [facility] Endocrinology [address] [place] [address] Greg Nina APRN.MOLDER CLOSED MOLDS [address] [place], [place] 6675039 diabetes follow up with me in 3 months virtually 11/20/2024 1:00 PM EDT [facility] Endocrinology [address] [place] [address] Valdez Suarez MD [address] [place] [address] [address] [place], [place] 522[address]35 follow up in 6 months documented as of this encounter Visit Diagnoses Not on filedocumented in this encounter Care Teams Ice Sculptor Relationship Specialty Start Date End Date Farhat Cabezas MD PCP - General Family Medicine 01/13/11 Farhat Cabezas MD Referring Family Medicine 01/08/22 Farhat Cabezas MD [address] [place] [address] Referring Family Medicine 07/26/24 documented as of this encounter
--- OUTSIDE RECORDS SUMMARY | 2024-08-21 15:43 | XMS_ITS | Encounter Summary ---
Demographics Address [address] [place] [address] Home Phone Mobile Phone Email Address Preferred Language ENG Marital Status Single Yazidism Affiliation Unknown Race White Ethnic Group Not or Lati no Author Organization [facility] Address [address] [place] [address] Care Team Providers Care Actuarial Intern Name Role Phone Farhat Cabezas MD Primary Care Provider [phone] Farhat Cabezas MD Unavailable [phone] Farhat Cabezas MD Unavailable [phone] Source Comments In the event this information is protected by the Federal Confidentiality of Alcohol and Drug AbusePatient Records regulations: The Federal rules restrict any use of the information to criminally investigate or prosecute any alcohol or drug abuse patient.[facility] Encounter Details Date Type Department Care Team (Late st Contact Info) Description 12/26/2023 [place] [address] Provider, [facility] MRI Screening Questionnaire Completion Required [...] lower risk 2 12/21/2022 Data from: https://www.neighborhoodatlas.[facility]/. Last address used for calculation [address] [...] AM EDT [facility] Endocrinology [address] [place] [address] Greg Nina APRN.CELLULAR EQUIPMENT INSTALLER [address] [place] [address] diabetes follow up with me in 3 months virtually 11/20/2024 1:00 PM EDT [facility] Endocrinology [address] [place] [address] Valdez Suarez MD [address] [place] [address] [place] [address] follow up in 6 months documented as of this encounter Visit Diagnoses Not on filedocumented in this encounter Care Teams Actuarial Intern Relationship Specialty Start Date End Date Farhat Cabezas MD PCP - General Family Medicine 01/13/11 Farhat Cabezas MD Referring Family Medicine 01/08/22 Farhat Cabezas MD [address] [place] [address] Referring Family Medicine 07/26/24 documented as of this encounter
--- OUTSIDE RECORDS SUMMARY | 2024-08-21 15:43 | XMS_ITS | Encounter Summary ---
Demographics Address [address] [facility] [place] [address] Home Phone Mobile Phone Email Address Preferred Language ENG Marital Status Single Oriental Orthodox Affiliation Unknown Race White Ethnic Group Not or Lati no Author Organization [facility] Address [facility] [place] [address] Care Team Providers Care Gas Examiner Name Role Phone Farhat Cabezas MD Primary Care Provider [phone] Farhat Cabezas MD Unavailable [phone] Farhat Cabezas MD Unavailable [phone] Source Comments In the event this information is protected by the Federal Confidentiality of Alcohol and Drug AbusePatient Records regulations: The Federal rules restrict any use of the information to criminally investigate or prosecute any alcohol or drug abuse patient.[facility] Encounter Details Date Type Department Care Team (Late st Contact Info) Description 05/24/2024 Get Medical Advice Neurology [address] [place] [address] Thaddeus Diggs MD [address] [place] [address] MRI cervical slime Social History [...] is lower risk 7 03/07/2024 Data from: https://www.neighborhoodatlas.medicine.[facility]/ . Last address used for calculation [address] [...] EDT [facility] Endocrinology [address] [place] [address] Greg Nina APRN.POLYSOMNOGRAPHIC TECHNICIAN [address] [place] [address] diabetes follow up with me in 3 months virtually 11/20/2024 1:00 PM EDT [facility] Endocrinology [address] [place] [address] Valdez Suarez MD [address] [place] [address] [place], [place] 9087735 follow up in 6 months documented as of this encounter Visit Diagnoses Not on filedocumented in this encounter Care Teams Gas Examiner Relationship Specialty Start Date End Date Farhat Cabezas MD PCP - General Family Medicine 01/13/11 Farhat Cabezas MD Referring Family Medicine 01/08/22 Farhat Cabezas MD [address] [place] [address] Referring Family Medicine 07/26/24 documented as of this encounter
--- OUTSIDE RECORDS SUMMARY | 2024-08-21 15:43 | XMS_ITS | Encounter Summary ---
Author Organization [facility] Address [address] [place] [address] Care Team Providers Care Automotive Assembler Name Role Phone Farhat Cabezas MD Primary Care Provider [phone] Farhat Cabezas MD Unavailable [phone] Farhat Cabezas MD Unavailable [phone] Source Comments In the event this information is protected by the Federal Confidentiality of Alcohol and Drug AbusePatient Records regulations: The Federal rules restrict any use of the information to criminally investigate or prosecute any alcohol or drug abuse patient.[facility] Encounter Details Date Type Department Care Team (Late st Contact Info) Description 10/06/2023 Patient Msg Ophthalmology [address] [place], [place] [phone] Theron Barajas OD [address] [place] [address] Appointment Request Social History Tobacco [...] Data from: https://www.neighborhoodatlas.medicine.[facility]/. Last address used for calculation 543 [...] 9:30 AM EDT [facility] Endocrinology [address] [place] [address] Greg Nina APRN.SAND OPERATOR [address] [place] [address] diabetes follow up with me in 3 months virtually 11/20/2024 1:00 PM EDT [facility] Endocrinology [address] [place] [address] Valdez Suarez MD [address] [place] [address] [address] [place], [place] [address] follow up in 6 months documented as of this encounter Visit Diagnoses Not on filedocumented in this encounter Care Teams Automotive Assembler Relationship Specialty Start Date End Date Farhat Cabezas MD PCP - General Family Medicine 01/13/11 Farhat Cabezas MD Referring Family Medicine 01/08/22 [place] [address] [place] [address] Referring Family Medicine 07/26/24 documented as of this encounter
--- OUTSIDE RECORDS SUMMARY | 2024-08-21 15:43 | XMS_ITS | Encounter Summary ---
Demographics Address [address] [facility] [place] [address] Home Phone Mobile Phone Email Address Preferred Language ENG Marital Status Single Confucianism Affiliation Unknown Race White Ethnic Group Not or Lati no Author Organization [facility] Address [address] [place] [address] Care Team Providers Care Merchandise Carrier Name Role Phone Farhat Cabezas MD Primary Care Provider [phone] Farhat Cabezas MD Unavailable [phone] Farhat Cabezas MD Unavailable [phone] Source Comments In the event this information is protected by the Federal Confidentiality of Alcohol and Drug AbusePatient Records regulations: The Federal rules restrict any use of the information to criminally investigate or prosecute any alcohol or drug abuse patient.[facility] Encounter Details Date Type Department Care Team (Late st Contact Info) Description 01/22/2016 Get Medical Advice General Surgery [address] [place] [address] Marlin Chao (Hist)MD [address] [place] [address] RE: Non-Urgent Medical Question Social [...] EDT [facility] Endocrinology [address] [place] [address] Greg Nina APRN.NECKTIES PAINTER [address] [place], [place] 1014439 diabetes follow up with me in 3 months virtually 11/20/2024 1:00 PM EDT [facility] Endocrinology [address] [place] [address] Valdez uSarez MD [address] [place] [address] [address] [place], [place] 1064235 follow up in 6 months documented as of this encounter Visit Diagnoses Not on filedocumented in this encounter Care Teams Merchandise Carrier Relationship Specialty Start Date End Date Farhat Cabezas MD PCP - General Family Medicine 01/13/11 Farhat Cabezas MD Referring Family Medicine 01/08/22 Farhat Cabezas MD [address] [place] [address] Referring Family Medicine 07/26/24 documented as of this encounter
--- OUTSIDE RECORDS SUMMARY | 2024-08-21 15:43 | XMS_ITS | Encounter Summary ---
Demographics Address [address] [place] [address] Home Phone Mobile Phone Email Address Preferred Language ENG Marital Status Single Episcopal Affiliation Unknown Race White Ethnic Group Not or Lati no Author Organization [facility] Address [address] [place] [address] Care Team Providers Care Insole Toe Snipping Machine Operator Name Role Phone Farhat Cabezas MD Primary Care Provider [phone] Farhat Cabezas MD Unavailable [phone] Farhat Cabezas MD Unavailable [phone] Source Comments In the event this information is protected by the Federal Confidentiality of Alcohol and Drug AbusePatient Records regulations: The Federal rules restrict any use of the information to criminally investigate or prosecute any alcohol or drug abuse patient.[facility] Encounter Details Date Type Department Care Team (Late st Contact Info) Description 08/17/2016 Get Medical Advice Rheumatology [address] [place] [address] Zabrina Culver MD [address] [place], [place] 7204253 RE: Upcoming Appointment Question Social History Tobacco [...] AM EDT [facility] Endocrinology [address] [place] [address] Greg Nina APRN.CHEMISTRY TECHNICIAN [address] [place], [place] 8882239 diabetes follow up with me in 3 months virtually 11/20/2024 1:00 PM EDT [facility] Endocrinology [address] [place] [address] Valdez Suarez MD [address] [place] [address] [address] [place], [place] 1107235 follow up in 6 months documented as of this encounter Visit Diagnoses Not on filedocumented in this encounter Care Teams Insole Toe Snipping Machine Operator Relationship Specialty Start Date End Date Farhat Cabezas MD PCP - General Family Medicine 01/13/11 Farhat Cabezas MD Referring Family Medicine 01/08/22 Farhat Cabezas MD [address] [place] [address] Referring Family Medicine 07/26/24 documented as of this encounter
--- OUTSIDE RECORDS SUMMARY | 2024-08-21 15:43 | XMS_ITS | Encounter Summary ---
Demographics Address [address] [facility] [place] [address] Home Phone Mobile Phone Email Address Preferred Language ENG Marital Status Single Church Affiliation Unknown Race White Ethnic Group Not or Lati no Author Organization [facility] Address [facility] [place] [address] Care Team Providers Care Supervisor Erection Shop Name Role Phone Farhat Cabezas MD Primary Care Provider [phone] Farhat Cabezas MD Unavailable [phone] Farhat Cabezas MD Unavailable [phone] Source Comments In the event this information is protected by the Federal Confidentiality of Alcohol and Drug AbusePatient Records regulations: The Federal rules restrict any use of the information to criminally investigate or prosecute any alcohol or drug abuse patient.[facility] Encounter Details Date Type Department Care Team (Late st Contact Info) Description 08/25/2023 Patient Msg Neurology [address] [place] [address] Thaddeus Diggs MD [address] [place] [address] Appointment Request Social History Tobacco [...] is lower risk 2 12/21/2022 Data from: https://www.neighborhoodatlas.medicine.[facility]/. Last address used for calculation [address] [...] [facility] Endocrinology [address] [place] [address] Greg Nina, MARITZA.CARD CUTTER [address] [place] [address] diabetes follow up with me in 3 months virtually 11/20/2024 1:00 PM EDT [facility] Endocrinology [address] [place] [address] Valdez Suarez MD [address] [place] [address] [place], [place] [address] follow up in 6 months documented as of this encounter Visit Diagnoses Not on filedocumented in this encounter Care Teams Supervisor Erection Shop Relationship Specialty Start Date End Date Farhat Cabezas MD PCP - General Family Medicine 01/13/11 Farhat Cabezas MD Referring Family Medicine 01/08/22 [place] [address] [place] [address] Referring Family Medicine 07/26/24 documented as of this encounter
--- OUTSIDE RECORDS SUMMARY | 2024-08-21 15:43 | XMS_ITS | Encounter Summary ---
Author Organization [facility] Address [address] [place] [address] Care Team Providers Care Service Attendant Name Role Phone Farhat Cabezas MD Primary Care Provider [phone] Farhat Cabezas MD Unavailable [phone] Farhat Cabezas MD Unavailable [phone] Source Comments In the event this information is protected by the Federal Confidentiality of Alcohol and Drug AbusePatient Records regulations: The Federal rules restrict any use of the information to criminally investigate or prosecute any alcohol or drug abuse patient.[facility] Encounter Details Date Type Department Care Team (Late st Contact Info) Description 02/19/2016 Patient Msg Medical Records [address] [place] [address] Provider, Ccf medical workup/ Social History Tobacco [...] AM EDT [facility] Endocrinology [address] [place] [address] Greg Nina APRN.CHARGE MASTER ANALYST [address] [place] [address] diabetes follow up with me in 3 months virtually 11/20/2024 1:00 PM EDT [facility] Endocrinology [address] [place] [address] Valdez Suarez MD [address] [place] [address] [place], [place] 20057[address] follow up in 6 months documented as of this encounter Visit Diagnoses Not on filedocumented in this encounter Care Teams Service Attendant Relationship Specialty Start Date End Date Farhat Cabezas MD PCP - General Family Medicine 01/13/11 Farhat Cabezas MD Referring Family Medicine 01/08/22 Farhat Cabezas MD [address] [place] [address] Referring Family Medicine 07/26/24 documented as of this encounter
--- OUTSIDE RECORDS SUMMARY | 2024-08-21 15:43 | XMS_ITS | Encounter Summary ---
Demographics Address [address] [facility] [place] [address] Home Phone Mobile Phone Email Address Preferred Language ENG Marital Status Single Restoration Affiliation Unknown Race White Ethnic Group Not or Lati no Author Organization [facility] Address [facility] [place] [address] Care Team Providers Care Satellite Communications Engineer Name Role Phone Farhat Cabezas MD Primary Care Provider [phone] Farhat Cabezas MD Unavailable [phone] Farhat Cabezas MD Unavailable [phone] Source Comments In the event this information is protected by the Federal Confidentiality of Alcohol and Drug AbusePatient Records regulations: The Federal rules restrict any use of the information to criminally investigate or prosecute any alcohol or drug abuse patient.[facility] Encounter Details Date Type Department Care Team (Late st Contact Info) Description 10/12/2023 Get Medical Advice Neurology [address] [place] [address] Thaddeus Diggs MD [address] [place] [address] MRI / lab results Social [...] is lower risk 2 12/21/2022 Data from: https://www.neighborhoodatlas.medicine.[facility]/. Last [...] 08/30/2024 9:30 AM EDT [facility] Endocrinology [address] [place] [address] Greg Nina, MARITZA.DISTRIBUTOR OPERATOR [address] [place], [place] [phone] diabetes follow up with me in 3 months virtually 11/20/2024 1:00 PM EDT [facility] Endocrinology [address] [place] [address] Valdez Suarez MD [address] [place] [address] [address] [place], [place] [phone] follow up in 6 months documented as of this encounter Visit Diagnoses Not on filedocumented in this encounter Care Teams Satellite Communications Engineer Relationship Specialty Start Date End Date Farhat Cabezas MD PCP - General Family Medicine 01/13/11 Farhat Cabezas MD Referring Family Medicine 01/08/22 Farhat Cabezas MD [address] [place] [address] Referring Family Medicine 07/26/24 documented as of this encounter
--- OUTSIDE RECORDS SUMMARY | 2024-08-21 15:43 | XMS_ITS | Encounter Summary ---
Demographics Address [address] [facility] [place] [address] Home Phone Mobile Phone Email Address Preferred Language ENG Marital Status Single Shinto Affiliation Unknown Race White Ethnic Group Not or Lati no Author Organization [facility] Address [address] [place] [address] Care Team Providers Care Door Furring Installer Name Role Phone Farhat Cabezas MD Primary Care Provider [phone] Farhat Cabezas MD Unavailable [phone] Farhat Cabezas MD Unavailable [phone] Source Comments In the event this information is protected by the Federal Confidentiality of Alcohol and Drug AbusePatient Records regulations: The Federal rules restrict any use of the information to criminally investigate or prosecute any alcohol or drug abuse patient.[facility] Encounter Details Date Type Department Care Team (Late st Contact Info) Description 01/10/2016 Get Medical Advice General Surgery [address] [place] [address] Rachel Yi MD [address] [place] [address] RE: Non-Urgent Medical Question Social [...] AM EDT [facility] Endocrinology [address] [place] [address] Greg Nina APRN.RN [place] [address] [place], [place] [address]39 diabetes follow up with me in 3 months virtually 11/20/2024 1:00 PM EDT [facility] Endocrinology [address] [place] [address] Valdez Suarez MD [address] [place] [address] [address] [place], [place] 8259635 follow up in 6 months documented as of this encounter Visit Diagnoses Not on filedocumented in this encounter Care Teams Door Furring Installer Relationship Specialty Start Date End Date Farhat Cabezas MD PCP - General Family Medicine 01/13/11 Farhat Cabezas MD Referring Family Medicine 01/08/22 Farhat Cabezas MD [address] [place] [address] Referring Family Medicine 07/26/24 documented as of this encounter
--- OUTSIDE RECORDS SUMMARY | 2024-08-21 15:43 | XMS_ITS | Encounter Summary ---
Demographics Address [address] [place] [address] Home Phone Mobile Phone Email Address Preferred Language ENG Marital Status Single Mosque Affiliation Unknown Race White Ethnic Group Not or Lati no Author Organization [facility] Address [address] [place] [address] Care Team Providers Care Cadd Manager Name Role Phone Farhat Cabezas MD Primary Care Provider [phone] Farhat Cabezas MD Unavailable [phone] Farhat Cabezas MD Unavailable [phone] Source Comments In the event this information is protected by the Federal Confidentiality of Alcohol and Drug AbusePatient Records regulations: The Federal rules restrict any use of the information to criminally investigate or prosecute any alcohol or drug abuse patient.[facility] Encounter Details Date Type Department Care Team (Late st Contact Info) Description 11/16/2023 [place] [address] Provider, Ccf MRI Screening Questionnaire Completion Required [...] is lower risk 2 12/21/2022 Data from: https://www.neighborhoodatlas.[facility]/. Last address used for calculation [address] [...] 9:30 AM EDT [facility] Endocrinology [address] [place] [address] Greg Nina APRN.CLINIC BUSINESS MANAGER [address] [place] [address] diabetes follow up with me in 3 months virtually 11/20/2024 1:00 PM EDT [facility] Endocrinology [address] [place] [address] Valdez Suarez MD [address] [place] [address] [place] [address] follow up in 6 months documented as of this encounter Visit Diagnoses Not on filedocumented in this encounter Care Teams Cadd Manager Relationship Specialty Start Date End Date Farhat Cabezas MD PCP - General Family Medicine 01/13/11 Farhat Cabezas MD Referring Family Medicine 01/08/22 Farhat Cabezas MD [address] [place] [address] Referring Family Medicine 07/26/24 documented as of this encounter
--- OUTSIDE RECORDS SUMMARY | 2024-08-21 15:43 | XMS_ITS | Encounter Summary ---
Demographics Address [address] [place] [address] Home Phone Mobile Phone Email Address Preferred Language ENG Marital Status Single Congregation Affiliation Unknown Race White Ethnic Group Not or Lati no Author Organization [facility] Address [address] [place] [address] Care Team Providers Care Rn Practitioner Name Role Phone Farhat Cabezas MD Primary Care Provider [phone] Farhat Cabezas MD Unavailable [phone] Farhat Cabezas MD Unavailable [phone] Source Comments In the event this information is protected by the Federal Confidentiality of Alcohol and Drug AbusePatient Records regulations: The Federal rules restrict any use of the information to criminally investigate or prosecute any alcohol or drug abuse patient.[facility] Encounter Details Date Type Department Care Team (Late st Contact Info) Description 12/20/2023 [place] [address] Provider, Ccf MRI Screening Questionnaire Completion Required [...] 12/21/2022 Data from: https://www.neighborhoodatlas.[facility]/. Last address used for calculation [...] Info) Description 08/30/2024 9:[address] [facility] Endocrinology [address] [place] [address] Greg Nina APRN.HYDROSTATIC TUBING TESTER [address] [place] [address] diabetes follow up with me in 3 months virtually 11/20/2024 1:00 PM EDT [facility] Endocrinology [address] [place] [address] Valdez Suarez MD [address] [place] [address] [place] [address] follow up in 6 months documented as of this encounter Visit Diagnoses Not on filedocumented in this encounter Care Teams Rn Practitioner Relationship Specialty Start Date End Date Farhat Cabezas MD PCP - General Family Medicine 01/13/11 Farhat Cabezas MD Referring Family Medicine 01/08/22 Farhat Cabezas MD [address] [place] [address] Referring Family Medicine 07/26/24 documented as of this encounter
--- OUTSIDE RECORDS SUMMARY | 2024-08-21 15:43 | XMS_ITS | Encounter Summary ---
Demographics Address [address] [place] [address] Home Phone Mobile Phone Email Address Preferred Language ENG Marital Status Single Orthodox Affiliation Unknown Race White Ethnic Group Not or Lati no Author Organization [facility] Address [address] [place] [address] Care Team Providers Care Hide Mill Worker Name Role Phone Farhat Cabezas MD Primary Care Provider [phone] Farhat Cabezas MD Unavailable Farhat Cabezas MD Unavailable [phone] Source Comments In the event this information is protected by the Federal Confidentiality of Alcohol and Drug AbusePatient Records regulations: The Federal rules restrict any use of the information to criminally investigate or prosecute any alcohol or drug abuse patient.[facility] Encounter Details Date Type Department Care Team (Late st Contact Info) Description 07/19/2023 Patient Msg Cardiology [address] [facility] [place] [address] Ellyn Barraza, ADVERTISING PRODUCTION MANAGER.CLOTH PIECER [address] [place] [address] Appointment Request Social History Tobacco Use [...] 12/21/2022 Data from: https://www.neighborhoodatlas.medicine.[facility].edu/. Last address used for calculation [...] 08/30/2024 9:30 AM EDT [facility] Endocrinology [address] [place] [address] Greg Nina APRN.CLOTH PIECER [address] [place] [address] diabetes follow up with me in 3 months virtually 11/20/2024 1:00 PM EDT [facility] Endocrinology [address] [place] [address] Valdez Suarez MD [address] [place] [address] [place], [place] [phone] follow up in 6 months documented as of this encounter Visit Diagnoses Not on filedocumented in this encounter Care Teams Hide Mill Worker Relationship Specialty Start Date End Date Farhat Cabezas MD PCP - General Family Medicine 01/13/11 Farhat Cabezas MD Referring Family Medicine 01/08/22 Farhat Cabezas MD [address] [place] [address] Referring Family Medicine 07/26/24 documented as of this encounter
--- OUTSIDE RECORDS SUMMARY | 2024-08-21 15:43 | XMS_ITS | Encounter Summary ---
Demographics Address [address] [place] [address] Home Phone Mobile Phone Email Address Preferred Language ENG Marital Status Single Church Affiliation Unknown Race White Ethnic Group Not or Lati no Author Organization [facility] Address [address] [place] [address] Care Team Providers Care Charge Account Authorizer Name Role Phone Farhat Cabezas MD Primary Care Provider [phone] Farhat Cabezas MD Unavailable [phone] Farhat Cabezas MD Unavailable [phone] Source Comments In the event this information is protected by the Federal Confidentiality of Alcohol and Drug AbusePatient Records regulations: The Federal rules restrict any use of the information to criminally investigate or prosecute any alcohol or drug abuse patient.[facility] Encounter Details Date Type Department Care Team (Late st Contact Info) Description 03/08/2024 Patient Msg Radiology [address] [place] [address] Provider, Ccf MRI Questionnaire Social [...] is lower risk 7 03/07/2024 Data from: https://www.neighborhoodatlas.[facility]/ . Last address used for [...] 9:[address] [facility] Endocrinology [address] [place] [address] Greg Nina APRN.RUBBER GOODS CUTTER FINISHER [address] [place] [address] diabetes follow up with me in 3 months virtually 11/20/2024 1:[address] [facility] Endocrinology [address] [place] [address] Valdez Suarez MD [address] [place] [address] [address] [place], [place] 7147235 follow up in 6 months documented as of this encounter Visit Diagnoses Not on filedocumented in this encounter Care Teams Charge Account Authorizer Relationship Specialty Start Date End Date Farhat Cabezas MD PCP - General Family Medicine 01/13/11 Farhat Cabezas MD Referring Family Medicine 01/08/22 Farhat Cabezas MD [address] [place] [address] Referring Family Medicine 07/26/24 documented as of this encounter
--- OUTSIDE RECORDS SUMMARY | 2024-08-21 15:43 | XMS_ITS | Encounter Summary ---
Demographics Address [address] [place] [address] Home Phone Mobile Phone Email Address Preferred Language ENG Marital Status Single Buddhist Affiliation Unknown Race White Ethnic Group Not or Lati no Author Organization [facility] Address [address] [place] [address] Care Team Providers Care Senior Statistical Programmer Name Role Phone Farhat Cabezas MD Primary Care Provider [phone] Farhat Cabezas MD Unavailable [phone] Farhat Cabezas MD Unavailable [phone] Source Comments In the event this information is protected by the Federal Confidentiality of Alcohol and Drug AbusePatient Records regulations: The Federal rules restrict any use of the information to criminally investigate or prosecute any alcohol or drug abuse patient.[facility] Encounter Details Date Type Department Care Team (Late st Contact Info) Description 11/15/2023 Patient Msg Cardiology [address] [place] [phone] Provider, Sheldon Abreu 11/16 Appointment Canceled Social [...] is lower risk 2 12/21/2022 Data from: https://www.neighborhoodatlas.[facility]/. Last address used for calculation [...] AM EDT [facility] Endocrinology [address] [place] [address] Greg Nina APRN.SPECIAL SYSTEMS TECHNICIAN [address] [place], [place] [phone] diabetes follow up with me in 3 months virtually 11/20/2024 1:[address] PM ED[address] [facility] Endocrinology [address] [place] [address] Valdez Suarez MD [address] [place] [address] [place], [place] 5040735 follow up in 6 months documented as of this encounter Visit Diagnoses Not on filedocumented in this encounter Care Teams Senior Statistical Programmer Relationship Specialty Start Date End Date Farhat Cabezas MD PCP - General Family Medicine 01/13/11 Farhat Cabezas MD Referring Family Medicine 01/08/22 Farhat Cabezas MD [address] [place] [address] Referring Family Medicine 07/26/24 documented as of this encounter
--- OUTSIDE RECORDS SUMMARY | 2024-08-21 15:43 | XMS_ITS | Encounter Summary ---
Demographics Address [address] [facility] [place] [address] Home Phone Mobile Phone Email Address Preferred Language ENG Marital Status Single Yarsanism Affiliation Unknown Race White Ethnic Group Not or Lati no Author Organization [facility] Address [address] [place] [address] Care Team Providers Care Fruit Buying Grader Name Role Phone Farhat Cabezas MD Primary Care Provider [phone] Farhat Cabezas MD Unavailable [phone] Farhat Cabezas MD Unavailable [phone] Source Comments In the event this information is protected by the Federal Confidentiality of Alcohol and Drug AbusePatient Records regulations: The Federal rules restrict any use of the information to criminally investigate or prosecute any alcohol or drug abuse patient.[facility] Encounter Details Date Type Department Care Team (Late st Contact Info) Description 05/28/2023 Patient Msg Endocrinology [address] [place] [address] Vinicius Márquez, REMOVABLE PROSTHODONTIST.JUNK DEALER [address] [place] [address] Appointment Request Social History Tobacco Use Types [...] risk 2 12/21/2022 Data from: https://www.neighborhoodatlas.medicine.[facility]/. Last address used for calculation [...] 9:30 AM EDT [facility] Endocrinology [address] [place] [address] Greg Nina APRN.JUNK DEALER [address] [place] [address] diabetes follow up with me in 3 months virtually 11/20/2024 1:00 PM EDT [facility] Endocrinology [address] [place] [address] Valdez Suarez MD [address] [place] [address] [address] [place], [place] 6656835 follow up in 6 months documented as of this encounter Visit Diagnoses Not on filedocumented in this encounter Care Teams Fruit Buying Grader Relationship Specialty Start Date End Date Farhat Cabezas MD PCP - General Family Medicine 01/13/11 Farhat Cabezas MD Referring Family Medicine 01/08/22 Farhat Cabezas MD [address] [place] [address] Referring Family Medicine 07/26/24 documented as of this encounter
--- OUTSIDE RECORDS SUMMARY | 2024-08-21 15:43 | XMS_ITS | Encounter Summary ---
Demographics Address [address] [place] [address] Home Phone Mobile Phone Email Address Preferred Language ENG Marital Status Single Scientologist Affiliation Unknown Race White Ethnic Group Not or Lati no Author Organization [facility] Address [address] [place] [address] Care Team Providers Care Music Copyist Name Role Phone Farhat Cabezas MD Primary Care Provider [phone] Farhat Cabezas MD Unavailable [phone] Farhat Cabezas MD Unavailable [phone] Source Comments In the event this information is protected by the Federal Confidentiality of Alcohol and Drug AbusePatient Records regulations: The Federal rules restrict any use of the information to criminally investigate or prosecute any alcohol or drug abuse patient.[facility] Encounter Details Date Type Department Care Team (Late st Contact Info) Description 07/04/2024 [place] [address] Provider, Ccf Phone call fllow up Social [...] is lower risk 7 03/07/2024 Data from: https://www.neighborhoodatlas.[facility]/ . Last address used for [...] Info) Description 08/30/2024 9:30 AM EDT [facility] Endocrinology [address] [place] [address] Greg Nina APRN.PHOTOGRAPHY SALES ASSOCIATE [address] [place] [address] diabetes follow up with me in 3 months virtually 11/20/2024 1:00 PM EDT [facility] [address] [place] [address] Valdez Suarez MD [address] [place] [address] [place], [place] 7741735 follow up in 6 months documented as of this encounter Visit Diagnoses Not on filedocumented in this encounter Care Teams Music Copyist Relationship Specialty Start Date End Date Farhat Cabezas MD PCP - General Family Medicine 01/13/11 Farhat Cabezas MD Referring Family Medicine 01/08/22 Farhat Cabezas MD [address] [place] [address] Referring Family Medicine 07/26/24 documented as of this encounter
--- OUTSIDE RECORDS SUMMARY | 2024-08-21 15:43 | XMS_ITS | Encounter Summary ---
Demographics Address [address] [place] [address] Home Phone Mobile Phone Email Address Preferred Language ENG Marital Status Single Voodoo Affiliation Unknown Race White Ethnic Group Not or Lati no Author Organization [facility] Address [address] [place] [address] Care Team Providers Care Timing Adjuster Name Role Phone Farhat Cabezas MD Primary Care Provider [phone] Farhat Cabezas MD Unavailable [phone] Farhat Cabezas MD Unavailable [phone] Source Comments In the event this information is protected by the Federal Confidentiality of Alcohol and Drug AbusePatient Records regulations: The Federal rules restrict any use of the information to criminally investigate or prosecute any alcohol or drug abuse patient.[facility] Encounter Details Date Type Department Care Team (Late st Contact Info) Description 07/04/2024 Patient Msg Neurology [address] [place] [address] Provider, Ccf from Dr Duenas [...] is lower risk 7 03/07/2024 Data from: https://www.neighborhoodatlas.[facility]/ . Last address used for calculation [address] [...] Info) Description 08/30/2024 9:30 AM EDT [facility] Endocrinology [address] [place] [address] Greg Nina APRN.BLUEPRINT READER [address] [place], [place] [phone] diabetes follow up with me in 3 months virtually 11/20/2024 1:00 PM EDT [facility] Endocrinology [address] [place] [address] Valdez Suarez MD [address] [place] [address] [address] [place], [place] 6437235 follow up in 6 months documented as of this encounter Visit Diagnoses Not on filedocumented in this encounter Care Teams Timing Adjuster Relationship Specialty Start Date End Date Farhat Cabezas MD PCP - General Family Medicine 01/13/11 Farhat Cabezas MD Referring Family Medicine 01/08/22 Farhat Cabezas MD [address] [place] [address] Referring Family Medicine 07/26/24 documented as of this encounter
--- OUTSIDE RECORDS SUMMARY | 2024-08-21 15:43 | XMS_ITS | Encounter Summary ---
Demographics Address [address] [place] [address] Home Phone Mobile Phone Email Address Preferred Language ENG Marital Status Single Mormon Affiliation Unknown Race White Ethnic Group Not or Lati no Author Organization [facility] Address [address] [place] [address] Care Team Providers Care Marshmallow Maker Name Role Phone Farhat Cabezas MD Primary Care Provider [phone] Farhat Cabezas MD Unavailable [phone] Farhat Cabezas MD Unavailable [phone] Source Comments In the event this information is protected by the Federal Confidentiality of Alcohol and Drug AbusePatient Records regulations: The Federal rules restrict any use of the information to criminally investigate or prosecute any alcohol or drug abuse patient.[facility] Encounter Details Date Type Department Care Team (Late st Contact Info) Description 11/23/2023 Patient Msg Radiology [address] [place] [address] Provider, Cc CT Scan 12/14/2023 Social History [...] lower risk 2 12/21/2022 Data from: https://www.neighborhoodatlas.[facility]/. Last address used for [...] [facility] Endocrinology [address] [place] [address] Greg Nina APRN.SOLAR DESIGNER/INSTALLER [address] [place] [address] diabetes follow up with me in 3 months virtually 11/20/2024 1:00 PM EDT [facility] Endocrinology [address] [place] [address] Valdez Suarez MD [address] [place] [address] [place], [place] 2245835 follow up in 6 months documented as of this encounter Visit Diagnoses Not on filedocumented in this encounter Care Teams Marshmallow Maker Relationship Specialty Start Date End Date Farhat Cabezas MD PCP - General Family Medicine 01/13/11 Farhat Cabezas MD Referring Family Medicine 01/08/22 Farhat Cabezas MD [address] [place] [address] Referring Family Medicine 07/26/24 documented as of this encounter
--- OUTSIDE RECORDS SUMMARY | 2024-08-21 15:43 | XMS_ITS | Encounter Summary ---
Demographics Address [address] [place] [address] Home Phone Mobile Phone Email Address Preferred Language ENG Marital Status Single Caodaism Affiliation Unknown Race White Ethnic Group Not or Lati no Author Organization [facility] Address [address] [place] [address] Care Team Providers Care Carbon Sequestration Plant Manager Name Role Phone Farhat Cabezas MD Primary Care Provider [phone] Farhat Cabezas MD Unavailable [phone] Farhat Cabezas MD Unavailable [phone] Source Comments In the event this information is protected by the Federal Confidentiality of Alcohol and Drug AbusePatient Records regulations: The Federal rules restrict any use of the information to criminally investigate or prosecute any alcohol or drug abuse patient.[facility] Encounter Details Date Type Department Care Team (Late st Contact Info) Description 07/03/2024 [place] [address] Provider, Ccf MRI Screening Questionnaire Completion Required [...] risk 7 03/07/2024 Data from: https://www.neighborhoodatlas.[facility]/ . Last address used for [...] Info) Description 08/30/2024 9:30 AM EDT [facility] Endocrinology [address] [place] [address] Greg Nina APRN.VALVE AND REGULATOR REPAIRER [address] [place] [address] diabetes follow up with me in 3 months virtually 11/20/2024 1:00 PM EDT [facility] [address] [place] [address] Valdez Suarez MD [address] [place] [address] [place], [place] 4458935 follow up in 6 months documented as of this encounter Visit Diagnoses Not on filedocumented in this encounter Care Teams Carbon Sequestration Plant Manager Relationship Specialty Start Date End Date Farhat Cabezas MD PCP - General Family Medicine 01/13/11 Farhat Cabezas MD Referring Family Medicine 01/08/22 Farhat Cabezas MD [address] [place] [address] Referring Family Medicine 07/26/24 documented as of this encounter
--- OUTSIDE RECORDS SUMMARY | 2024-08-21 15:43 | XMS_ITS | Encounter Summary ---
Demographics Address [address] [place] [address] Home Phone Mobile Phone Email Address Preferred Language ENG Marital Status Single Sikh Affiliation Unknown Race White Ethnic Group Not or Lati no Author Organization [facility] Address [address] [place] [address] Care Team Providers Care Marine Radio Installer And Servicer Name Role Phone Farhat Cabezas MD Primary Care Provider [phone] Farhat Cabezas MD Unavailable [phone] Farhat Cabezas MD Unavailable [phone] Source Comments In the event this information is protected by the Federal Confidentiality of Alcohol and Drug AbusePatient Records regulations: The Federal rules restrict any use of the information to criminally investigate or prosecute any alcohol or drug abuse patient.[facility] Encounter Details Date Type Department Care Team (Late st Contact Info) Description 03/07/2024 [place] [address] Provider, Ccf MRI Screening Questionnaire Completion Required [...] lower risk 7 03/07/2024 Data from: https://www.neighborhoodatlas.[facility]/ . Last address used for calculation [...] Description 08/30/2024 9:30 AM EDT [facility] Endocrinology [address] [place] [address] Greg Nina APRN.SUPERINTENDENT RECREATION [address] [place] [address] diabetes follow up with me in 3 months virtually 11/20/2024 1:00 PM EDT [facility] [address] [place] [address] Valdez Suarez MD [address] [place] [address] [place], [place] 0033135 follow up in 6 months documented as of this encounter Visit Diagnoses Not on filedocumented in this encounter Care Teams Marine Radio Installer And Servicer Relationship Specialty Start Date End Date Farhat Cabezas MD PCP - General Family Medicine 01/13/11 Farhat Cabezas MD Referring Family Medicine 01/08/22 Farhat Cabezas MD [address] [place] [address] Referring Family Medicine 07/26/24 documented as of this encounter
--- OUTSIDE RECORDS SUMMARY | 2024-08-21 15:43 | XMS_ITS | Encounter Summary ---
Demographics Address [address] [place] [address] Home Phone Mobile Phone Email Address Preferred Language ENG Marital Status Single Advent Affiliation Unknown Race White Ethnic Group Not or Lati no Author Organization [facility] Address [address] [place] [address] Care Team Providers Care Applications Architect Name Role Phone Farhat Cabezas MD Primary Care Provider [phone] Farhat Cabezas MD Unavailable [phone] Farhat Cabezas MD Unavailable [phone] Source Comments In the event this information is protected by the Federal Confidentiality of Alcohol and Drug AbusePatient Records regulations: The Federal rules restrict any use of the information to criminally investigate or prosecute any alcohol or drug abuse patient.[facility] Encounter Details Date Type Department Care Team (Late st Contact Info) Description 10/25/2023 Get Medical Advice Gastroenterology [address] [address] Adilene Morgan APRN.[facility] [address] [place] [address] Question Social History Tobacco Use [...] risk 2 12/21/2022 Data from: https://www.neighborhoodatlas.medicine.[facility]/. Last address used for calculation [...] EDT [facility] Endocrinology [address] [place] [address] Greg Nina APRN.SUPERVISOR CRACK OFF [address] [place] [address] diabetes follow up with me in 3 months virtually 11/20/2024 1:00 PM EDT [facility] Endocrinology [address] [place] [address] Valdez Suarez MD [address] [place] [address] [address] [place], [place] 6817135 follow up in 6 months documented as of this encounter Visit Diagnoses Not on filedocumented in this encounter Care Teams Applications Architect Relationship Specialty Start Date End Date Farhat Cabezas MD PCP - General Family Medicine 01/13/11 Farhat Cabezas MD Referring Family Medicine 01/08/22 [place] [address] [place] [address] Referring Family Medicine 07/26/24 documented as of this encounter
--- OUTSIDE RECORDS SUMMARY | 2024-08-21 15:43 | XMS_ITS | Encounter Summary ---
Demographics Address [address] [place] [address] Home Phone Mobile Phone Email Address Preferred Language ENG Marital Status Single Buddhist Affiliation Unknown Race White Ethnic Group Not or Lati no Author Organization [facility] Address [address] [place] [address] Care Team Providers Care Climbing Guide Name Role Phone Farhat Cabezas MD Primary Care Provider [phone] Farhat Cabezas MD Unavailable [phone] Farhat Cabezas MD Unavailable [phone] Source Comments In the event this information is protected by the Federal Confidentiality of Alcohol and Drug AbusePatient Records regulations: The Federal rules restrict any use of the information to criminally investigate or prosecute any alcohol or drug abuse patient.[facility] Encounter Details Date Type Department Care Team (Late st Contact Info) Description 05/28/2023 Patient Msg Cardiology [address] [place], [place] [address] Ellyn Barraza, PEANUT VENDOR.EDI COORDINATOR [address] [place], [place] [address] Appointment Request Social History Tobacco Use Types [...] is lower risk 2 12/21/2022 Data from: https://www.neighborhoodatlas.medicine.[facility].edu/. Last address used for calculation [address] [...] 08/30/2024 9:30 AM EDT [facility] [address] [place] [address] Greg Nina APRN.EDI COORDINATOR [address] [place] [address] diabetes follow up with me in 3 months virtually 11/20/2024 1:00 PM EDT [facility] Endocrinology [address] [place] [address] Valdez Suarez MD [address] [place] [address] [address] [place], [place] 6206335 follow up in 6 months documented as of this encounter Visit Diagnoses Not on filedocumented in this encounter Care Teams Climbing Guide Relationship Specialty Start Date End Date Farhat Cabezas MD PCP - General Family Medicine 01/13/11 Farhat Cabezas MD Referring Family Medicine 01/08/22 Farhat Cabezas MD [address] [place] [address] Referring Family Medicine 07/26/24 documented as of this encounter
--- OUTSIDE RECORDS SUMMARY | 2024-08-21 15:43 | XMS_ITS | Encounter Summary ---
Author Organization [facility] Address [address] [place] [address] Care Team Providers Care Stitchdown Thread Laster Name Role Phone Farhat Cabezas MD Primary Care Provider [phone] Farhat Cabezas MD Unavailable [phone] Farhat Cabezas MD Unavailable [phone] Source Comments In the event this [...] Patient Msg CB/Gynecology [address] [place] [address] [place] [address] [place] [address] Appointment Request Social History Tobacco [...] risk 2 12/21/2022 Data from: https://www.neighborhoodatlas.medicine.[facility]/. Last address used for calculation [address] [...] 12:43 PM Mona Duboes (Rn) (Hist), RN * Are you blind or do you have serious difficulty seeing, even when wearing glasses? Answer Date of Assessment Author No 12/14/2016 12:43 PM Mona Dubose (Rn) (Hist), RN * Do you have serious difficulty walking or climbing stairs? Answer Date of Assessment Author No 12/14/2016 12:43 PM Mnoa Dubose (Rn) (Hist), RN * Do you [...] Info) Description 08/30/2024 9:30 AM EDT [facility] Endocrinology [address] [place] [address] Greg Nina APRN.REFRIGERATION OPERATOR [address] [place], [place] [address] diabetes follow up with me in 3 months virtually 11/20/2024 1:00 PM EDT [facility] Endocrinology [address] [place] [address] Valdez Suarez MD [address] [place] [address] [place], [place] 4517[address] follow up in 6 months documented as of this encounter Visit Diagnoses Not on filedocumented in this encounter Care Teams Stitchdown Thread Laster Relationship Specialty Start Date End Date Farhat Cabezas MD PCP - General Family Medicine 01/13/11 Farhat Cabezas MD Referring Family Medicine 01/08/22 [place] [address] [place] [address] Referring Family Medicine 07/26/24 documented as of this encounter
--- OUTSIDE RECORDS SUMMARY | 2024-08-21 15:43 | XMS_ITS | Encounter Summary ---
Demographics Address [address] [place] [address] Home Phone Mobile Phone Email Address Preferred Language ENG Marital Status Single Bahai Affiliation Unknown Race White Ethnic Group Not or Lati no Author Organization [facility] Address [address] [place] [address] Care Team Providers Care Clerk Entry Level Name Role Phone Farhat Cabezas MD Primary Care Provider [phone] Farhat Cabezas MD Unavailable [phone] Farhat Cabezas MD Unavailable [phone] Source Comments In the event this [...] Description 07/15/2020 Patient Msg General Surgery [address] [place] [address] Provider, Ccf Lab results Social [...] N ot on file 01/16/2020 Data from: https://www.[facility]/. Last address used for calculation Not on [...] 08/30/2024 9:30 AM EDT [facility] Endocrinology [address] [place] [address] Greg Nina APRN.TENANT RELATIONS COORDINATOR [address] [place] [address] diabetes follow up with me in 3 months virtually 11/20/2024 1:00 PM EDT [facility] Endocrinology [address] [place] [address] Valdez Suarez MD [address] [place] [address] [place] [phone] follow up in 6 months documented as of this encounter Visit Diagnoses Not on filedocumented in this encounter Care Teams Clerk Entry Level Relationship Specialty Start Date End Date Farhat Cabezas MD PCP - General Family Medicine 01/13/11 Farhat Cabezas MD Referring Family Medicine 01/08/22 Farhat Cabezas MD [address] [place] [address] Referring Family Medicine 07/26/24 documented as of this encounter
--- OUTSIDE RECORDS SUMMARY | 2024-08-21 15:43 | XMS_ITS | Encounter Summary ---
Demographics Address [address] [address] Home Phone Mobile Phone Email Address Preferred Language ENG Marital Status Single Jain Affiliation Unknown Race White Ethnic Group Not or Lati no Author Organization [facility] Address [address] [place] [address] Care Team Providers Care Folder Hand Name Role Phone Farhat Cabezas MD Primary Care Provider [phone] Farhat Cabezas MD Unavailable [phone] Farhat Cabezas MD Unavailable [phone] Source Comments In the event this information is protected by the Federal Confidentiality of Alcohol and Drug AbusePatient Records regulations: The Federal rules restrict any use of the information to criminally investigate or prosecute any alcohol or drug abuse patient.[facility] Encounter Details Date Type Department Care Team (Late st Contact Info) Description 10/05/2023 Patient Msg Cardiology [address] [facility] [facility] [place] [address] Provider, Ccf Appointment needs scheduling Social History [...] is lower risk 2 12/21/2022 Data from: https://www.neighborhoodatlas.[facility]/. Last address used for [...] Info) Description 08/30/2024 9:30 AM EDT [facility] Endocrinology [address] [place] [address] Greg Nina APRN.CHOKE REAMER [address] [place] [address] diabetes follow up with me in 3 months virtually 11/20/2024 1:00 PM EDT [facility] Endocrinology [address] [place] [address] Valdez Suarez MD [address] [place] [address] [address] [place], [place] [phone] follow up in 6 months documented as of this encounter Visit Diagnoses Not on filedocumented in this encounter Care Teams Folder Hand Relationship Specialty Start Date End Date Farhat Cabezas MD PCP - General Family Medicine 01/13/11 Farhat Cabezas MD Referring Family Medicine 01/08/22 Farhat Cabezas MD [address] [place] [address] Referring Family Medicine 07/26/24 documented as of this encounter
--- OUTSIDE RECORDS SUMMARY | 2024-08-21 15:43 | XMS_ITS | Encounter Summary ---
Demographics Address [address] [facility] [place] [address] Home Phone Mobile Phone Email Address Preferred Language ENG Marital Status Single Congregational Affiliation Unknown Race White Ethnic Group Not or Lati no Author Organization [facility] Address [address] [place] [address] Care Team Providers Care Ad Terminal Makeup Operator Name Role Phone Farhat Cabezas MD Primary Care Provider [phone] Farhat Cabezas MD Unavailable [phone] Farhat Cabezas MD Unavailable [phone] Source Comments In the event this information is protected by the Federal Confidentiality of Alcohol and Drug AbusePatient Records regulations: The Federal rules restrict any use of the information to criminally investigate or prosecute any alcohol or drug abuse patient.[facility] Encounter Details Date Type Department Care Team (Late st Contact Info) Description 05/26/2016 Get Medical Advice General Surgery [address] [place] [address] Marlin Chao (Hist)MD [address] [place] [address] RE: Non-Urgent Medical Question Social [...] AM EDT [facility] Endocrinology [address] [place] [address] Greg Nina APRN.SLAB GRINDER [address] [place], [place] 7[address]39 diabetes follow up with me in 3 months virtually 11/20/2024 1:00 PM EDT [facility] Endocrinology [address] [place] [address] Valdez Suarez MD [address] [place] [address] [address] [place], [place] 380[address] follow up in 6 months documented as of this encounter Visit Diagnoses Not on filedocumented in this encounter Care Teams Ad Terminal Makeup Operator Relationship Specialty Start Date End Date Farhat Cabezas MD PCP - General Family Medicine 01/13/11 Farhat Cabezas MD Referring Family Medicine 01/08/22 Farhat Cabezas MD [address] [place] [address] Referring Family Medicine 07/26/24 documented as of this encounter
--- OUTSIDE RECORDS SUMMARY | 2024-08-21 15:43 | XMS_ITS | Encounter Summary ---
Demographics Address [address] [place] [address] Home Phone Mobile Phone Email Address Preferred Language ENG Marital Status Single Mu-Ism Affiliation Unknown Race White Ethnic Group Not or Lati no Author Organization [facility] Address [address] [place] [address] Care Team Providers Care Print Operator Name Role Phone Farhat Cabezas MD Primary Care Provider [phone] Farhat Cabezas MD Unavailable [phone] Farhat Cabezas MD Unavailable [phone] Source Comments In the event this information is protected by the Federal Confidentiality of Alcohol and Drug AbusePatient Records regulations: The Federal rules restrict any use of the information to criminally investigate or prosecute any alcohol or drug abuse patient.[facility] Encounter Details Date Type Department Care Team (Late st Contact Info) Description 05/28/2023 Patient Msg Endocrinology [address] [place] [place] [address] Valdez Suarez MD [address] [place] [address] [place] [address] Appointment Request Social History Tobacco Use [...] is lower risk 2 12/21/2022 Data from: https://www.neighborhoodatlas.medicine.[facility]/. Last address used for calculation [address] [...] 08/30/2024 9:30 AM EDT [facility] [address] [place] [address] Greg Nina, STEEL MOLDER.SUPERVISOR OFFSET PLATE PREPARATION [address] [place], [place] 7584239 diabetes follow up with me in 3 months virtually 11/20/2024 1:00 PM EDT [facility] Endocrinology [address] [place] [address] Valdez Suarez MD [address] [place] [address] [address] [place], [place] 5222335 follow up in 6 months documented as of this encounter Visit Diagnoses Not on filedocumented in this encounter Care Teams Print Operator Relationship Specialty Start Date End Date Farhat Cabezas MD PCP - General Family Medicine 01/13/11 Farhat Cabezas MD Referring Family Medicine 01/08/22 Farhat Cabezas MD [address] [place] [address] Referring Family Medicine 07/26/24 documented as of this encounter
--- OUTSIDE RECORDS SUMMARY | 2024-08-21 15:44 | XMS_ITS | Encounter Summary ---
Demographics Address [address] [place] [address] Home Phone Mobile Phone Email Address Preferred Language ENG Marital Status Single Jehovah'S Witness Affiliation Unknown Race White Ethnic Group Not or Lati no Author Organization [facility] Address [address] [place] [address] Care Team Providers Care Motor Overhauler Name Role Phone Farhat Cabezas MD Primary Care Provider [phone] Farhat Cabezas MD Unavailable [phone] Farhat Cabezas MD Unavailable [phone] Source Comments In the event this information is protected by the Federal Confidentiality of Alcohol and Drug AbusePatient Records regulations: The Federal rules restrict any use of the information to criminally investigate or prosecute any alcohol or drug abuse patient.[facility] Encounter Details Date Type Department Care Team (Late st Contact Info) Description 05/27/2021 Get Medical Advice [facility] [address] [facility] [place], [place] 14[address] Rachel Yi MD [address] [place] [address] weight managment Social History Tobacco [...] N ot on file 01/16/2020 Data from: https://www.neighborhoodatlas.medicine.[facility]/. Last address used [...] AM EDT [facility] Endocrinology [address] [place] [address] Greg Nina APRN.MOTOR OVERHAULER [address] [place] [address] diabetes follow up with me in 3 months virtually 11/20/2024 1:00 PM EDT [facility] Endocrinology [address] [place] [address] Valdez Suarez MD [address] [place] [address] [address] [place], [place] 8937335 follow up in 6 months documented as of this encounter Visit Diagnoses Not on filedocumented in this encounter Care Teams Motor Overhauler Relationship Specialty Start Date End Date Farhat Cabezas MD PCP - General Family Medicine 01/13/11 Farhat Cabezas MD Referring Family Medicine 01/08/22 Farhat Cabezas MD [address] [place] [address] Referring Family Medicine 07/26/24 documented as of this encounter
--- OUTSIDE RECORDS SUMMARY | 2024-08-21 15:44 | XMS_ITS | Encounter Summary ---
Demographics Address [address] [place] [address] Home Phone Mobile Phone Email Address Preferred Language ENG Marital Status Single Advent Affiliation Unknown Race White Ethnic Group Not or Lati no Author Organization [facility] Address [address] [place] [address] Care Team Providers Care Director Learning And Development Name Role Phone Farhat Cabezas MD Primary Care Provider [phone] Farhat Cabezas MD Unavailable [phone] Farhat Cabezas MD Unavailable [phone] Source Comments In the event this information is protected by the Federal Confidentiality of Alcohol and Drug AbusePatient Records regulations: The Federal rules restrict any use of the information to criminally investigate or prosecute any alcohol or drug abuse patient.[facility] Encounter Details Date Type Department Care Team (Late st Contact Info) Description 05/25/2021 Patient Msg [facility] REJ [address] [place], [place] 1688411 Rachel Yi MD [address] [place] [address] Request an Appointment Social History [...] on file 01/16/2020 Data from: https://www.neighborhoodatlas.medicine.[facility]/. Last address used [...] Contact Info) Description 08/30/2024 9:30 AM EDT [facility] Endocrinology [address] [place] [address] Greg Nina APRN.PILL MAKER [address] [place] [address] diabetes follow up with me in 3 months virtually 11/20/2024 1:00 PM EDT [facility] Endocrinology [address] [place] [address] Valdez Suarez MD [address] [place] [address] [address] [place], [place] 9018235 follow up in 6 months documented as of this encounter Visit Diagnoses Not on filedocumented in this encounter Care Teams Director Learning And Development Relationship Specialty Start Date End Date Farhat Cabezas MD PCP - General Family Medicine 01/13/11 Farhat Cabezas MD Referring Family Medicine 01/08/22 Farhat Cabezas MD [address] [place] [address] Referring Family Medicine 07/26/24 documented as of this encounter
--- OUTSIDE RECORDS SUMMARY | 2024-08-21 15:44 | XMS_ITS | Encounter Summary ---
Demographics Address [address] [facility] [place] [address] Home Phone Mobile Phone Email Address Preferred Language ENG Marital Status Single Orthodoxy Affiliation Unknown Race White Ethnic Group Not or Lati no Author Organization [facility] Address [address] [place] [address] Care Team Providers Care Cooker Mechanic Name Role Phone Farhat Cabezas MD Primary Care Provider [phone] Farhat Cabezas MD Unavailable [phone] Farhat Cabezas MD Unavailable [phone] Source Comments In the event this information is protected by the Federal Confidentiality of Alcohol and Drug AbusePatient Records regulations: The Federal rules restrict any use of the information to criminally investigate or prosecute any alcohol or drug abuse patient.[facility] Encounter Details Date Type Department Care Team (Late st Contact Info) Description 08/01/2021 Patient Msg [facility] [address] [facility] [place] [id number] Provider, Ccf Appointment Request Social History Tobacco [...] N ot on file 07/19/2021 Data from: https://www.neighborhoodatlas.[facility]/. Last address used for calculation [address] [facility] 07/19/2021 Comments No Sex and Gender Information [...] 9:30 AM EDT [facility] Endocrinology [address] [place] [address] Greg Nina, MARITZA.FARMWORKER RICE [address] [place] [address] diabetes follow up with me in 3 months virtually 11/20/2024 1:00 PM EDT [facility] Endocrinology [address] [place] [address] Valdez Suarez MD [address] [place] [address] [place] [address] follow up in 6 months documented as of this encounter Visit Diagnoses Not on filedocumented in this encounter Care Teams Cooker Mechanic Relationship Specialty Start Date End Date Farhat Cabezas MD PCP - General Family Medicine 01/13/11 Farhat Cabezas MD Referring Family Medicine 01/08/22 Farhat Cabezas MD [address] [place] [address] Referring Family Medicine 07/26/24 documented as of this encounter
--- OUTSIDE RECORDS SUMMARY | 2024-08-21 15:44 | XMS_ITS | Encounter Summary ---
Author Organization [facility] Address [address] [place] [address] Care Team Providers Care Clay Thrower Name Role Phone Farhat Cabezas MD Primary Care Provider [phone] Farhat Cabezas MD Unavailable [phone] Farhat Cabezas MD Unavailable [phone] Source Comments In the event this information is protected by the Federal Confidentiality of Alcohol and Drug AbusePatient Records regulations: The Federal rules restrict any use of the information to criminally investigate or prosecute any alcohol or drug abuse patient.[facility] Encounter Details Date Type Department Care Team (Late st Contact Info) Description 08/04/2018 Patient Msg General Surgery [address] [place] [address] Provider, Ccf Medication refill Social [...] EDT [facility] Endocrinology [address] [place] [address] Greg Nina APRN.PLASTIC MOLDING OPERATOR [address] [place] [address] diabetes follow up with me in 3 months virtually 11/20/2024 1:00 PM EDT [facility] Endocrinology [address] [place] [address] Valdez Suarez MD [address] [place] [address] [address] [place], [place] 8815635 follow up in 6 months documented as of this encounter Visit Diagnoses Not on filedocumented in this encounter Care Teams Clay Thrower Relationship Specialty Start Date End Date Farhat Cabezas MD PCP - General Family Medicine 01/13/11 Farhat Cabezas MD Referring Family Medicine 01/08/22 Farhat Cabezas MD [address] [place] [address] Referring Family Medicine 07/26/24 documented as of this encounter
--- OUTSIDE RECORDS SUMMARY | 2024-08-21 15:44 | XMS_ITS | Encounter Summary ---
Demographics Address [address] [facility] [place] [address] Home Phone Mobile Phone Email Address Preferred Language ENG Marital Status Single Zoroastrianism Affiliation Unknown Race White Ethnic Group Not or Lati no Author Organization [facility] Address [facility] [place] [address] Care Team Providers Care Embossing Machine Operator Name Role Phone Farhat Cabezas MD Primary Care Provider [phone] Farhat Cabezas MD Unavailable [phone] Farhat Cabezas MD Unavailable [phone] Source Comments In the event this information is protected by the Federal Confidentiality of Alcohol and Drug AbusePatient Records regulations: The Federal rules restrict any use of the information to criminally investigate or prosecute any alcohol or drug abuse patient.[facility] Encounter Details Date Type Department Care Team (Late st Contact Info) Description 09/18/2021 Patient Msg Sleep Psychology [address] [place] [address] [place] [address] [facility] [address] [place] [phone] follow up Social History Tobacco Use Types [...] on file 07/19/2021 Data from: https://www.neighborhoodatlas.medicine.[facility]/. Last address used for calculation [address] [...] Description 08/30/2024 9:30 AM EDT [facility] Endocrinology [address] [place] [address] Greg Nina APRN.ASSURANCE ANALYST [address] [place] [address] diabetes follow up with me in 3 months virtually 11/20/2024 1:00 PM EDT [facility] Endocrinology [address] [place] [address] Valdez Suarez MD [address] [place] [address] [address] [place], [place] 40[address] follow up in 6 months documented as of this encounter Visit Diagnoses Not on filedocumented in this encounter Care Teams Embossing Machine Operator Relationship Specialty Start Date End Date Farhat Cabezas MD PCP - General Family Medicine 01/13/11 Farhat Cabezas MD Referring Family Medicine 01/08/22 Farhat Cabezas MD [address] [place] [address] Referring Family Medicine 07/26/24 documented as of this encounter
--- OUTSIDE RECORDS SUMMARY | 2024-08-21 15:44 | XMS_ITS | Encounter Summary ---
Demographics Address [address] [place] [address] Home Phone Mobile Phone Email Address Preferred Language ENG Marital Status Single Mu-Ism Affiliation Unknown Race White Ethnic Group Not or Lati no Author Organization [facility] Address [address] [place] [address] Care Team Providers Care Window Glass Installer Name Role Phone Farhat Cabezas MD Primary Care Provider [phone] Farhat Cabezas MD Unavailable [phone] Farhat Cabezas MD Unavailable [phone] Source Comments In the event this information is protected by the Federal Confidentiality of Alcohol and Drug AbusePatient Records regulations: The Federal rules restrict any use of the information to criminally investigate or prosecute any alcohol or drug abuse patient.[facility] Encounter Details Date Type Department Care Team (Late st Contact Info) Description 02/04/2024 Patient [facility] -[address] [place] [address] Renetta Moore RPh At your next appointment, choose [facility]. Social History Tobacco Use Types [...] risk 2 12/21/2022 Data from: https://www.neighborhoodatlas.[facility]/. Last address used [...] 08/30/2024 9:30 AM EDT [facility]ocrinology [address] [place] [address] Greg Nina APRN.TORPEDO WORKER [address] [place], [place] [address] diabetes follow up with me in 3 months virtually 11/20/2024 1:00 PM EDT [facility] Endocrinology [address] [place] [address] Valdez Suarez MD [address] [place] [address] [address] [place], [place] [address] follow up in 6 months documented as of this encounter Visit Diagnoses Not on filedocumented in this encounter Care Teams Window Glass Installer Relationship Specialty Start Date End Date Farhat Cabezas MD PCP - General Family Medicine 01/13/11 Farhat Cabezas MD Referring Family Medicine 01/08/22 [place] [address] [place] [address] Referring Family Medicine 07/26/24 documented as of this encounter
--- OUTSIDE RECORDS SUMMARY | 2024-08-21 15:44 | XMS_ITS | Encounter Summary ---
Demographics Address [address] [place] [address] Home Phone Mobile Phone Email Address Preferred Language ENG Marital Status Single Synagogue Affiliation Unknown Race White Ethnic Group Not or Lati no Author Organization [facility] Address [address] [place] [address] Care Team Providers Care Glove Pairer Name Role Phone Farhat Cabezas MD Primary Care Provider [phone] Farhat Cabezas MD Unavailable [phone] Farhat Cabezas MD Unavailable [phone] Source Comments In the event this information is protected by the Federal Confidentiality of Alcohol and Drug AbusePatient Records regulations: The Federal rules restrict any use of the information to criminally investigate or prosecute any alcohol or drug abuse patient.[facility] Encounter Details Date Type Department Care Team (Late st Contact Info) Description 02/15/2024 [place] [address] Provider, Ccf MRI Screening Questionnaire Completion Required [...] lower risk 2 12/21/2022 Data from: https://www.neighborhoodatlas.[facility]/. Last address used for calculation [...] 9:30 AM EDT [facility] Endocrinology [address] [place] [address] Greg Nina APRN.BOX ATTACHER [address] [place] [address] diabetes follow up with me in 3 months virtually 11/20/2024 1:00 PM EDT [facility] Endocrinology [address] [place] [address] Valdez Suarez MD [address] [place] [address] [place] [address] follow up in 6 months documented as of this encounter Visit Diagnoses Not on filedocumented in this encounter Care Teams Glove Pairer Relationship Specialty Start Date End Date Farhat Cabezas MD PCP - General Family Medicine 01/13/11 Farhat Cabezas MD Referring Family Medicine 01/08/22 Farhat Cabezas MD [address] [place] [address] Referring Family Medicine 07/26/24 documented as of this encounter
--- OUTSIDE RECORDS SUMMARY | 2024-08-21 15:44 | XMS_ITS | Encounter Summary ---
Demographics Address [address] [place] [address] Home Phone Mobile Phone Email Address Preferred Language ENG Marital Status Single Christianity Affiliation Unknown Race White Ethnic Group Not or Lati no Author Organization [facility] Address [address] [place] [address] Care Team Providers Care Multi Share Program Coordinator Name Role Phone Farhat Cabezas MD Primary Care Provider [phone] Farhat Cabezas MD Unavailable [phone] Farhat Cabezas MD Unavailable [phone] Source Comments In the event this information is protected by the Federal Confidentiality of Alcohol and Drug AbusePatient Records regulations: The Federal rules restrict any use of the information to criminally investigate or prosecute any alcohol or drug abuse patient.[facility] Encounter Details Date Type Department Care Team (Late st Contact Info) Description 06/09/2021 Get Medical Advice Neurology [address] [place] [address] Jaelyn Rangel MD NO FORWARDING [...] N ot on file 01/16/2020 Data from: https://www.neighborhoodatlas.[facility]/. Last address used [...] Arnold RN - 06/09/2021 2:00 PM EDT [employer] message routed to provider for review. documented in this encounter Plan of Treatment Upcoming Encounters Date Type Department Care Team (Late st Contact Info) Description 08/30/2024 9:30 AM EDT [facility] Endocrinology [address] [place] [address] Greg Nina APRN.CLIENT DEVELOPMENT CONSULTANT [address] [place], [place] [phone] diabetes follow up with me in 3 months virtually 11/20/2024 1:00 PM EDT [facility] Endocrinology [address] [place] [address] Valdez Suarez MD [address] [place] [address] [address] [place], [place] [phone] follow up in 6 months documented as of this encounter Visit Diagnoses Not on filedocumented in this encounter Care Teams Multi Share Program Coordinator Relationship Specialty Start Date End Date Farhat Cabezas MD PCP - General Family Medicine 01/13/11 Farhat Cabezas MD Referring Family Medicine 01/08/22 Farhat Cabezas MD [address] [place] [address] Referring Family Medicine 07/26/24 documented as of this encounter
--- OUTSIDE RECORDS SUMMARY | 2024-08-21 15:44 | XMS_ITS | Encounter Summary ---
Demographics Address [address] [place] [address] Home Phone Mobile Phone Email Address Preferred Language ENG Marital Status Single Yazidism Affiliation Unknown Race White Ethnic Group Not or Lati no Author Organization [facility] Address [address] [place] [address] Care Team Providers Care Building Code Administrator Name Role Phone Farhat Cabezas MD Primary Care Provider [phone] Farhat Cabezas MD Unavailable [phone] Farhat Cabezas MD Unavailable [phone] Source Comments In the event this information is protected by the Federal Confidentiality of Alcohol and Drug AbusePatient Records regulations: The Federal rules restrict any use of the information to criminally investigate or prosecute any alcohol or drug abuse patient.[facility] Encounter Details Date Type Department Care Team (Late st Contact Info) Description 06/09/2021 Get Medical Advice Endocrinology [address] [facility] [place], [place] [phone] Valdez Suarez MD [address] [place], [place] [address] [facility] [place] [address] Thyroid antboties Social History Tobacco Use [...] N ot on file 01/16/2020 Data from: https://www.neighborhoodatlas.medicine.[facility]/. Last address used for [...] Description 08/30/2024 9:30 AM EDT [facility] Endocrinology [address] [place] [address] Greg Nina APRN.HEALTH POLICY NURSE [address] [place], [place] [phone] diabetes follow up with me in 3 months virtually 11/20/2024 1:00 PM EDT [facility] Endocrinology [address] [place] [address] Valdez Suarez MD [address] [place] [address] [address] [place], [place] [phone] follow up in 6 months documented as of this encounter Visit Diagnoses Not on filedocumented in this encounter Care Teams Building Code Administrator Relationship Specialty Start Date End Date Farhat Cabezas MD PCP - General Family Medicine 01/13/11 Farhat Cabezas MD Referring Family Medicine 01/08/22 Farhat Cabezas MD [address] [place] [address] Referring Family Medicine 07/26/24 documented as of this encounter
--- OUTSIDE RECORDS SUMMARY | 2024-08-21 15:44 | XMS_ITS | Encounter Summary ---
Demographics Address [address] [place] [address] Home Phone Mobile Phone Email Address Preferred Language ENG Marital Status Single Congregation Affiliation Unknown Race White Ethnic Group Not or Lati no Author Organization [facility] Address [address] [place] [address] Care Team Providers Care Child Caregiver Name Role Phone Farhat Cabezas MD Primary Care Provider [phone] Farhta Cabezas MD Unavailable [phone] Farhat Cabezas MD Unavailable [phone] Source Comments In the event this information is protected by the Federal Confidentiality of Alcohol and Drug AbusePatient Records regulations: The Federal rules restrict any use of the information to criminally investigate or prosecute any alcohol or drug abuse patient.[facility] Encounter Details Date Type Department Care Team (Late st Contact Info) Description 09/15/2021 [place] [address] Provider, [facility] MRI Screening Questionnaire Completion Required [...] N ot on file 07/19/2021 Data from: https://www.neighborhoodatlas.[facility]/. Last address used for calculation [address] 07/19/2021 Comments No Sex and Gender [...] Contact Info) Description 08/30/2024 9:30 AM EDT [facility] Endocrinology [address] [place] [address] Greg Nina, MARITZA.SENIOR ADMINISTRATOR SUPPORT [address] [place] [address] diabetes follow up with me in 3 months virtually 11/20/2024 1:00 PM EDT [facility] Endocrinology [address] [place] [phone] Valdez Suarez MD [address] [place] [address] [address] [place], [place] 5196[address] follow up in 6 months documented as of this encounter Visit Diagnoses Not on filedocumented in this encounter Care Teams Child Caregiver Relationship Specialty Start Date End Date Farhat Cabezas MD PCP - General Family Medicine 01/13/11 Farhat Cabezas MD Referring Family Medicine 01/08/22 [place] [address] [place] [address] Referring Family Medicine 07/26/24 documented as of this encounter
--- OUTSIDE RECORDS SUMMARY | 2024-08-21 15:44 | XMS_ITS | Encounter Summary ---
Demographics Address [address] [facility] [place] [address] Home Phone Mobile Phone Email Address Preferred Language ENG Marital Status Single Baptism Affiliation Unknown Race White Ethnic Group Not or Lati no Author Organization [facility] Address [address] [place] [address] Care Team Providers Care Economics Analyst Name Role Phone Farhat Cabezas MD Primary Care Provider [phone] Farhat Cabezas MD Unavailable [phone] Farhat Cabezas MD Unavailable [phone] Source Comments In the event this information is protected by the Federal Confidentiality of Alcohol and Drug AbusePatient Records regulations: The Federal rules restrict any use of the information to criminally investigate or prosecute any alcohol or drug abuse patient.[facility] Encounter Details Date Type Department Care Team (Late st Contact Info) Description 08/01/2021 Patient Msg Rheumatology [address] [address] Lorenzo Perry DO [address] [facility] [address] [place] [address] Request an Appointment Social History Tobacco Use [...] N ot on file 07/19/2021 Data from: https://www.neighborhoodatlas.medicine.[facility]/. Last address used for calculation [address] 1[address] [...] Contact Info) Description 08/30/2024 9:30 AM EDT [facility] Endocrinology [address] [place] [phone] Greg Nina APRN.MICROFABRICATION ENGINEER MANAGER [address] [place] [address] diabetes follow up with me in 3 months virtually 11/20/2024 1:00 PM EDT [facility] Endocrinology [address] [place] [phone] Valdez Suarez MD [address] [place] [address] [address] [place], [place] [phone] follow up in 6 months documented as of this encounter Visit Diagnoses Not on filedocumented in this encounter Care Teams Economics Analyst Relationship Specialty Start Date End Date Farhat Cabezas MD PCP - General Family Medicine 01/13/11 Farhat Cabezas MD Referring Family Medicine 01/08/22 Farhat Cabezas MD [address] [place] [address] Referring Family Medicine 07/26/24 documented as of this encounter
--- OUTSIDE RECORDS SUMMARY | 2024-08-21 15:44 | XMS_ITS | Encounter Summary ---
Demographics Address [address] [facility] [place] [address] Home Phone Mobile Phone Email Address Preferred Language ENG Marital Status Single Shinto Affiliation Unknown Race White Ethnic Group Not or Lati no Author Organization [facility] Address [address] [place] [address] Care Team Providers Care Special Needs Teacher Name Role Phone Farhat Cabezas MD Primary Care Provider [phone] Farhat Cabezas MD Unavailable [phone] Farhat Cabezas MD Unavailable [phone] Source Comments In the event this [...] Patient M[facility] [address] [facility] [place] [id number] Provider, Ccf Request an Appointment Social History [...] N ot on file 01/16/2020 Data from: https://www.neighborhoodatlas.[facility]/. Last address used for [...] Info) Description 08/30/2024 9:30 AM EDT [facility] Endocrinology [address] [place] [address] Greg Nina, SECURITY ASSURANCE SPECIALIST.DETECTIVE [address] [place], [place] [phone] diabetes follow up with me in 3 months virtually 11/20/2024 1:00 PM EDT [facility] Endocrinology [address] [place] [address] Valdez Suarez MD [address] [place] [address] [place] [address] follow up in 6 months documented as of this encounter Visit Diagnoses Not on filedocumented in this encounter Care Teams Special Needs Teacher Relationship Specialty Start Date End Date Farhat Cabezas MD PCP - General Family Medicine 01/13/11 Farhat Cabezas MD Referring Family Medicine 01/08/22 Farhat Cabezas MD [address] [place] [address] Referring Family Medicine 07/26/24 documented as of this encounter
--- OUTSIDE RECORDS SUMMARY | 2024-08-21 15:44 | XMS_ITS | Encounter Summary ---
Author Organization [facility] Address [facility] [place] [address] Care Team Providers Care Paralegal Specialist Name Role Phone Farhat Cabezas MD Primary Care Provider [phone] Farhat Cabezas MD Unavailable [phone] Farhat Cabezas MD Unavailable [phone] Source Comments In the event this [...] Get Medical Advice General Surgery BMI PSYL [address] [place], [place] [phone] Graciela Hoyt, PhD [address] [place] [phone] RE: Non-Urgent Medical Question Social History Tobacco [...] Date Author No 12/14/2016 12:43 PM Mona Duboes (Rn) (Hist), RN documented in this encounter Plan of Treatment Upcoming Encounters Date Type Department Care Team (Late st Contact Info) Description 08/30/2024 9:30 AM EDT [facility] Endocrinology [address] [place] [address] Greg Nina APRN.SHOULDER SAWYER [address] [place] [address] diabetes follow up with me in 3 months virtually 11/20/2024 1:00 PM EDT [facility] Endocrinology [address] [place] [address] Valdez Suarez MD [address] [place] [address] [address] [place], [place] [phone] follow up in 6 months documented as of this encounter Visit Diagnoses Not on filedocumented in this encounter Care Teams Paralegal Specialist Relationship Specialty Start Date End Date Farhat Cabezas MD PCP - General Family Medicine 01/13/11 Farhat Cabezas MD Referring Family Medicine 01/08/22 Farhat Cabezas MD [address] [place] [address] Referring Family Medicine 07/26/24 documented as of this encounter
--- OUTSIDE RECORDS SUMMARY | 2024-08-21 15:44 | XMS_ITS | Encounter Summary ---
Demographics Address [address] [facility] [place] [address] Home Phone Mobile Phone Email Address Preferred Language ENG Marital Status Single Caodaism Affiliation Unknown Race White Ethnic Group Not or Lati no Author Organization [facility] Address [address] [place] [address] Care Team Providers Care Exhibition Carver Name Role Phone Farhat Cabezas MD Primary Care Provider [phone] Farhat Cabezas MD Unavailable [phone] Farhat Cabezas MD Unavailable Source Comments In the event this information is protected by the Federal Confidentiality of Alcohol and Drug AbusePatient Records regulations: The Federal rules restrict any use of the information to criminally investigate or prosecute any alcohol or drug abuse patient.[facility] Encounter Details Date Type Department Care Team (Late st Contact Info) Description 08/04/2021 Patient Msg Neurology [address] [place] [address] Sara Nguyen, MARITZA.MICROBIOLOGY ANALYST [address] [facility] 1 [place] [address] Sonata Refill Social History Tobacco Use Types Packs/Day Years Used Date Smoking Tobacco: Never Smokeless Tobacco: Never Alcohol Use Standard Drinks/Week Comments Not Currently 0 (1 standard drink = 0.6 oz pur e alcohol) Social PHQ-2 Answer Date Recorded PHQ-2 score 2 11/08/2020 Area Deprivation Index Answer Date Ord rded National Score (1-100), lower number is lower ri sk 59 07/19/2021 State Score (1-10), lower number is lower risk N ot on file 07/19/2021 Data from: https://www.neighborhoodatlas.medicine.[facility]/. Last address used for calculation [address] [...] Assessment Author No 12/14/2016 12:43 PM Moan DuboseRn) (Hist), RN * Do you have [...] Info) Description 08/30/2024 9:30 AM EDT [facility] Endocrinology [address] [place] [address] Greg Nina APRN.MICROBIOLOGY ANALYST [address] [place], [place] [phone] diabetes follow up with me in 3 months virtually 11/20/2024 1:00 PM EDT [facility] Endocrinology [address] [place] [address] Valdez Suarez MD [address] [place] [address] [address] [place], [place] 8204735 follow up in 6 months documented as of this encounter Visit Diagnoses Not on filedocumented in this encounter Care Teams Exhibition Carver Relationship Specialty Start Date End Date Farhat Cabezas MD PCP - General Family Medicine 01/13/11 Farhat Cabezas MD Referring Family Medicine 01/08/22 Farhat Cabezas MD [address] [place] [address] Referring Family Medicine 07/26/24 documented as of this encounter
--- OUTSIDE RECORDS SUMMARY | 2024-08-21 15:44 | XMS_ITS | Encounter Summary ---
Demographics Address [address] [place] [address] Home Phone Mobile Phone Email Address Preferred Language ENG Marital Status Single Confucianist Affiliation Unknown Race White Ethnic Group Not or Lati no Author Organization [facility] Address [address] [place] [address] Care Team Providers Care Electronic Gaming Device Supervisor Name Role Phone Farhat Cabezas MD Primary Care Provider [phone] Farhat Cabezas MD Unavailable [phone] Farhat Cabezas MD Unavailable [phone] Source Comments In the event this [...] 04/22/2021 Get Medical Advice [facility] [address] [facility] [place] [address] Valdez Suarez MD [address] [place] [address] [place] [address] Suspicious nodule / thyroid Social History [...] N ot on file 01/16/2020 Data from: https://www.neighborhoodatlas.medicine.[facility]/. Last address used for calculation Not [...] with repeat US in 6 months, sent [employer], message documented in this encounter Plan of Treatment Upcoming Encounters Date Type Department Care Team (Late st Contact Info) Description 08/30/2024 9:30 AM EDT [facility] Endocrinology [address] [place] [phone] Greg Nina APRN.[facility] [address] [place] [address] diabetes follow up with me in 3 months virtually 11/20/2024 1:00 PM EDT [place] [address] [place] [address] Valdez Suarez MD [address] [place] [address] [place] [address] follow up in 6 months documented as of this encounter Visit Diagnoses Diagnosis Hx of papillary thyroid carcinoma- Primary Personal history of malignant neoplasm of thyroid documented in this encounter Care Teams Electronic Gaming Device Supervisor Relationship Specialty Start Date End Date Farhat Cabezas MD PCP - General Family Medicine 01/13/11 Farhat Cabezas MD Referring Family Medicine 01/08/22 Farhat Cabezas MD [address] [place] [address] Referring Family Medicine 07/26/24 documented as of this encounter
--- NOTE | 2024-08-21 16:39 | XR_ITS ---
The [address] [address] Patient Name: PRADIP MORFIN MRN: [id number] date: 1975 Sex: F Assigned Patient Location: [facility] Current Patient Location: Accession/Order Number: [id number] Exam Date: 08/22/2024 07:43 Report Date: 08/22/2024 07:58 At the request of: MARIBEL PINEDA MD Procedure: XR tibia fibula LT 2V LEFT TIBIA AND FIBULA - 2 views CLINICAL HISTORY: Weakness with fall down stairs. Anterior pain, swelling and bruising at the left lower leg. R53.1 COMPARISON: Left knee 12/15/2021 AP and lateral views of the left tibia and fibula were obtained. There is no evidence of fracture, dislocation or bony destruction. Small enthesophytes are seen the medial femoral condyle and patella as well as the posterior and plantar calcaneus. Mild pretibial soft tissue swelling is noted. There is also subcutaneous edema. XR/XR tibia fibula LT 2V IMPRESSION: NO ACUTE BONY FINDINGS. Impression dictated by: Mitzi Flower M.D. 08/22/2024 7:58 AM Dictation Location: [place] [address] Electronically authenticated by: [id number] Y Date: 08/22/2024 07:58
== END 2024-08-21 15:36 | disposition home or self-care (01) ==
PROVIDERS: PCP Family Medicine; Visit Provider Family Medicine
DX: R53.1 Weakness (principal); M25.462 Effusion, left knee
CPT/HCPCS: 73590; 93971